=== PATIENT | male | born 1950 | race Caucasian/White ===

== ENCOUNTER 2021-05-08 14:20 | Outpatient (CLI) | payer OTHER, SELFPAY ==
--- NOTE | ~2021-05-08 | XR_ITS ---
XR chest 2V DATE: 05/08/2021 15:16 INDICATION: Shortness of breath for 10 days. History of COPD, asthma, hypertension. Former smoker. TECHNIQUE: PA and lateral views COMPARISON: None FINDINGS: Normal heart size. Left-sided pacemaker device with leads overlying right atrium and right ventricle. Aortic arch calcification. There is pulmonary hyperinflation. There is volume loss of the left lung compared to the right. There is patchy infiltrate infiltrate and/or atelectasis in the left lower lung. No pleural effusion or pulmonary vascular congestion or pneumothorax. Diffuse osteopenia. Degenerative spurring of the thoracic spine. IMPRESSION: Patchy infiltrate or atelectasis in the left lower lung Hyperinflation, right greater than left Reviewed, dictated and finalized at location A.
[2021-05-08 15:44] LABS: NT Pro B Type Natriuretic Pept 649 pg/mL (5-100)
[2021-05-12 00:26] LABS: Immunoglobulin E 247 kU/L (<=114)
[2021-05-12 22:09] LABS: Alpha-1-Antitrypsin, QN 158 mg/dL (83-199)
[2021-05-12 22:48] LABS: Immunoglobulin G, Serum 1090 mg/dL (600-1540); Immunoglobulin G1 534 mg/dL (382-929); Immunoglobulin G2 221 mg/dL (241-700); Immunoglobulin G3 90 mg/dL (22-178)
== END 2021-05-08 14:21 | disposition home or self-care (01) ==
LOC: ANHLAB 14:23
PROVIDERS: PCP Internal Medicine; Referring Provider Family Medicine; Visit Provider Nurse Practitioner
DX: R06.09 Other forms of dyspnea (principal); R06.02 Shortness of breath; R91.8 Other nonspecific abnormal finding of lung field
CPT/HCPCS: 36415; 71046; 82103; 82104; 82784; 82785; 82787; 83880; 85004; 85048; 86003

== ENCOUNTER 2021-05-11 11:35 | Outpatient (CLI) | payer OTHER, SELFPAY ==
[2021-05-14 11:15] LABS: NIL 0.01 IU/mL; Quantiferon TB Plus, 1T NEGATIVE (NEGATIVE); TB2-NIL 0.01 IU/mL
== END 2021-05-11 11:36 | disposition home or self-care (01) ==
LOC: ANHLAB 11:38
PROVIDERS: PCP Internal Medicine; Visit Provider Nurse Practitioner
DX: R79.89 Other specified abnormal findings of blood chemistry (principal)
CPT/HCPCS: 36415; 86480

== ENCOUNTER 2021-05-27 14:49 | Outpatient (CLI) | payer OTHER, SELFPAY ==
--- NOTE | ~2021-05-27 | US_ITS ---
EXAMINATION: US carotid duplex BI DATE: 05/27/2021 16:15 INDICATION: Bilateral carotid artery stenosis. TECHNIQUE: Grayscale, color Doppler, and pulsed Doppler images of the cervical carotid arteries were obtained. The degree of vessel stenosis is placed in one of the following categories: normal, <50%, 5 0-69%, >=70% but less than near-occlusion, near-occlusion, or total occlusion. Note that percent sten osis relative to normal distal artery lumen diameter is indirectly measured from velocity measurement s as described by Marciano, et al. Radiology 2003; [id number]. COMPARISON: None. FINDINGS: RIGHT: The right common carotid artery (CCA) peak systolic velocity (PSV) is 99 cm/s. The right internal car otid artery (ICA) PSV is 93 cm/s. The right ICA end-diastolic velocity (EDV) is 26 cm/s. The right IC A/CCA PSV ratio is 0.9. Grayscale and color Doppler images yield an estimate of <50% diameter reducti on from plaque in the ICA. There is antegrade flow in the right vertebral artery. LEFT: The left CCA PSV is 78 cm/s. The left ICA PSV is 118 cm/s. The left ICA EDV is 28 cm/s. The left ICA/ CCA PSV ratio is 1.5. Grayscale and color Doppler images yield an estimate of <50% diameter reduction from plaque in the ICA. There is antegrade flow in the left vertebral artery. IMPRESSION: 1. <50% stenosis in the right internal carotid artery. 2. <50% stenosis in the left internal carotid artery. Reviewed, dictated and finalized at location A.
--- NOTE | ~2021-05-27 | US_ITS ---
EXAMINATION: US art doppler w press LE BI DATE: 05/27/2021 16:13 INDICATION: Claudication TECHNIQUE: Segmental pressures and plethysmographic and Doppler waveforms of the brachial and lower e xtremity arteries were obtained. COMPARISON: None. FINDINGS: Right and left brachial artery pressures of 150 mm Hg and 171 mm Hg, respectively, are concordant (no rmal difference <= 30 mmHg). The right ankle-brachial index (SULEMA) is 0.66 (normal >= 0.9-1). The right great toe-brachial index (T BI) is 0.35 (normal >= 0.6-0.8). Arterial waveforms are biphasic with brisk systolic upstrokes throug hout. Cardiac arrhythmias present. The left SULEMA is 0.81. The left TBI is 0.64. Arterial waveforms are biphasic with brisk systolic upst rokes throughout. IMPRESSION: 1. Bilateral arterial occlusive disease with mildly decreased left SULEMA and moderately decreased right SULEMA and TBI. Reviewed, dictated and finalized at location B. IMPRESSION: 1. Bilateral arterial occlusive disease with mildly decreased left SULEMA and mode rately decreased right SULEMA and TBI.
== END 2021-05-27 14:50 | disposition home or self-care (01) ==
PROVIDERS: PCP Internal Medicine; Visit Provider Internal Medicine Cardiovascular Disease
DX: I65.23 Occlusion and stenosis of bilateral carotid arteries (principal); I73.9 Peripheral vascular disease, unspecified
CPT/HCPCS: 93880; 93923

== ENCOUNTER 2021-06-02 13:01 | Inpatient (IN) | payer OTHER, MEDICARE, SELFPAY ==
[2021-06-02] VITALS (18 sets, daily range): BP systolic 90–171; BP diastolic 62–83; PULSE 78–98; RESP 18–34; TEMP 35.6–36.5; O2SAT 92–97; BMI 30.8
--- NOTE | ~2021-06-02 | US_ITS ---
EXAMINATION: US thoracentesis DATE: 06/08/2021 15:12 INDICATION: pleural effusion TECHNIQUE: The procedure and its risks, benefits, and alternatives were discussed with the patient. P otential risks discussed included bleeding, infection, and pneumothorax. The patient understood the r isks and agreed to proceed. The skin was prepped and draped in sterile fashion. 1% lidocaine was used for local anesthesia. Under ultrasound guidance, a 5 Fr catheter with trochar was advanced into the left pleural effusion. Fluid was aspirated. The catheter was removed, and a dressing was applied. The re were no immediate complications. FINDINGS: Ultrasound images demonstrate a left pleural effusion and the catheter within the fluid. IMPRESSION: 1. Successful ultrasound-guided thoracentesis yielding 2 mL of opaque, cream-colored fluid suggestin g empyema. Reviewed, dictated and finalized at location A. IMPRESSION: 1. Successful ultrasound-guided thoracentesis yielding 2 mL of opaque, cream-c olored fluid suggesting empyema.
--- NOTE | ~2021-06-02 | XR_ITS ---
XR chest 1V portable 06/07/2021 05:49 Indication: Left pneumonia and pleural effusion Procedure: AP portable chest Comparison: 06/05/2021 Findings: Pacemaker leads are stable. Moderate left pleural effusion. Left-sided airspace disease, reyes spicious for pneumonia. Impression: 1: Persistent patchy left-sided airspace disease, compatible with pneumonia. 2: Moderate left pleural effusion. Reviewed, dictated and finalized at location A. Impression: 1: Persistent patchy left-sided airspace disease, compatible with pneumonia. 2: Moderate left pleural effusion.
--- NOTE | ~2021-06-02 | XR_ITS ---
EXAMINATION: XR chest 2V DATE: 06/05/2021 13:55 INDICATION: Shortness of breath, left lung pneumonia and pleural effusion. TECHNIQUE: PA and lateral views of the chest were obtained. COMPARISON: Chest radiograph dated 06/02/[address] dated 06/04/2021 FINDINGS: Masslike opacities in the left mid to lower lung zone along with blunting at the left costophrenic an gle which on CT corresponds to a small multiloculated left pleural effusion with suggestion of some n odular pleural thickening raising concern for malignancy. Tiny right pleural effusion with blunting o f the posterior sulcus. Right lung is otherwise clear. No pneumothorax or right pleural effusion. Hea rt size is normal. Dual lead pacemaker seen with leads projecting over the expected locations of the right atrium and right ventricle. IMPRESSION: 1. Unchanged opacities in the left mid and lower lung zones consistent with small right pleural effus ion, associated atelectasis and some suspicion on prior CT for pleural-based malignancy. 2. Tiny right pleural effusion. Reviewed, dictated and finalized at location A. IMPRESSION: 1. Unchanged opacities in the left mid and lower lung zones consistent with sma ll right pleural effusion, associated atelectasis and some suspicion on prior C T for pleural-based malignancy. 2. Tiny right pleural effusion.
--- NOTE | ~2021-06-02 | XR_ITS ---
EXAMINATION: XR chest 1V portable EXAM DATE: 06/02/2021 13:54 INDICATION: Shortness of breath. TECHNIQUE: Portable AP frontal chest x-ray was obtained. Comparison is made to prior examination from 05/08/2020. FINDINGS: Development of multifocal left mid and lower lung zone airspace disease. The midlung zone n odular opacity rather well-defined, but still most likely acute given not present last. There is smal l to moderate left pleural effusion with adjacent atelectasis. Right lung is clear. Mild cardiomegaly . There is a dual lead pacemaker/AICD seen with leads projecting over the expected locations of the r ight atrial appendage and right ventricle. There is no pneumothorax suspected. There are no osseous a bnormalities identified. IMPRESSION: 1. Moderate amount of left-sided airspace disease suspicious for combination of atelectasis and pneu monia. 2. Small to moderate left pleural effusion. 3. Follow-up to resolution. Reviewed, dictated and finalized at location A. IMPRESSION: 1. Moderate amount of left-sided airspace disease suspicious for combination o f atelectasis and pneumonia. 2. Small to moderate left pleural effusion. 3. Follow-up to resolution.
--- NOTE | ~2021-06-02 | NM_ITS ---
EXAMINATION: NM pulmonary perfusion DATE: 06/05/2021 14:00 INDICATION: Shortness of breath. Left lung pneumonia and pleural effusion. TECHNIQUE: 5.3 mCi Tc-99m MAA by intravenous route. Scintigraphic images of the chest were obtained. COMPARISON: Chest radiograph dated 06/05/[address] dated 06/04/2021 FINDINGS: Large perfusion defect extending across the left lower lung zone and moderate-sized perfusion defect at the posterior left midlung zone corresponding to radiographic opacities on the prior radiograph wh ich on CT correspond to loculated components of a small to moderate-sized left pleural effusion and a ssociated atelectasis. A couple small matched perfusion defects along the right lung base. No unmatch ed perfusion defects identified. IMPRESSION: 1. Immediate probability for pulmonary embolism. Reviewed, dictated and finalized at location A.
--- NOTE | ~2021-06-02 | US_ITS ---
EXAMINATION: US venous doppler LE EXAM DATE: 06/04/2021 10:38 INDICATION: R/O DVT R/O DVT TECHNIQUE: Multiple grayscale, color flow and Doppler images of the lower extremity deep venous syste ms bilaterally were obtained and reviewed. There is no prior study for comparison. FINDINGS: Right side: The right common femoral, femoral and profunda veins demonstrate normal color flow, respi ratory variation, augmentation and compressibility. Compressibility, color flow confirmed within the right popliteal, posterior tibial, peroneal, and greater saphenous veins. Left side: The left common femoral, femoral and profunda veins demonstrate normal color flow, respira tory variation, augmentation and compressibility. Compressibility, color flow confirmed within the l eft popliteal, posterior tibial, peroneal, and greater saphenous veins. IMPRESSION: No lower extremity deep venous thrombosis bilaterally. Reviewed, dictated and finalized at location A.
--- NOTE | ~2021-06-02 | CT_ITS ---
EXAMINATION: CT diagnostic chest wo con EXAM DATE: 06/04/2021 10:02 INDICATION: Left lung pneumonia and effusion. TECHNIQUE: Spiral CT of the chest without contrast. Axial, coronal and sagittal images of the chest were reviewed. Coronal maximum intensity pixel images of chest reviewed. The dose-length product ( DLP) for this examination was 322.62 mGy-cm. The exposure was tailored according to patient size (au to mA exposure control), and iterative reconstruction (ASIR) was used as additional dose reduction te chnique. There is no prior study for comparison. FINDINGS: There is multi loculated small to moderate-sized left pleural effusion with possibility of regions of pleural thickening which raises possibility of malignant pleural effusion or less likely e mpyema. There is left lower lobe perihilar opacity which is difficult to measure, but with regions of segmental bronchial narrowing, occlusion. Could be lung cancer or less likely pneumonia and atelecta sis. There is moderate emphysema. Mild mediastinal lymphadenopathy with a precarinal lymph node measuring 2.0 x 1.7 cm. There is no pneumothorax. Heart is normal in size. Pacemaker/AICD device. There is moderate coronary arterial calcification, arterial sclerosis. Bilateral adrenal nodularity, could b e adenomas but metastatic disease not excludable. There is small sliding gastroesophageal hiatal slim ia. There is thoracic spondylosis without osteoblastic or osteolytic lesions identified. IMPRESSION: 1. 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 Infectious etiology for these findings not excludable. A CT chest with intravenous contrast migh t be beneficial for better evaluating pleural surface nodularity. 2. Mild mediastinal lymphadenopathy, metastatic versus reactive. 3. Indeterminate adrenal gland lesions. 4. Moderate emphysema. Reviewed, dictated and finalized at location A. IMPRESSION: 1. Findings most consistent with left lower lobe cancer, multiloculated malign ant left pleural effusion. Infectious etiology for these findings not excludabl e. A CT chest with intravenous contrast might be beneficial for better evaluati ng pleural surface nodularity. 2. Mild mediastinal lymphadenopathy, metastatic versus reactive. 3. Indeterminate adrenal gland lesions. 4. Moderate emphysema.
--- NOTE | ~2021-06-02 | XR_ITS ---
EXAMINATION: [id number]_CR DATE: 06/08/2021 15:06 INDICATION: Left pleural effusion status post thoracentesis. TECHNIQUE: Frontal and lateral views of the chest were obtained. COMPARISON: Chest CT 06/08/2021, chest single view 06/07/2021 FINDINGS: There are lucencies in the lungs, consistent with emphysema. There is a small right pleural effusion. There is elevation of left hemidiaphragm. There is a moderate-sized loculated left pleural effusion. There are airspace opacities in left mid and lower lung zones. No pneumothorax. The heart size is normal. There is a left chest wall pacer with leads in the right atrium and right ventricle. There are surgical clips in the neck IMPRESSION: 1. Moderate-sized loculated left pleural effusion, likely an empyema. 2. Small right pleural effusion. 3. Airspace opacities in left mid and lower lung zones, consistent with pneumonia and atelectasis. 4. Emphysema. Reviewed, dictated and finalized at location A. IMPRESSION: 1. Moderate-sized loculated left pleural effusion, likely an empyema. 2. Small right pleural effusion. 3. Airspace opacities in left mid and lower lung zones, consistent with pneumon ia and atelectasis. 4. Emphysema.
--- NOTE | ~2021-06-02 | CT_ITS ---
EXAMINATION:CT diagnostic chest wo con DATE: 06/08/2021 09:21 INDICATION: Left lung lower lobe pneumonia. Left pleural effusion. TECHNIQUE: Computed tomography (CT) of the chest was performed without intravenous contrast. Automate d exposure control and iterative reconstruction technique were employed. The dose-length product (DLP ) was 324.00 mGy-cm. COMPARISON: Chest CT 06/04/2021 FINDINGS: There is severe emphysema. There is a small right pleural effusion with mild dependent atel ectasis. There is a moderate-sized loculated left pleural effusion. There is fat stranding in the adj acent anterior mediastinum. There are peripheral airspace opacities in lingula and left lower lobe. A calcified left lung nodule is consistent with old granulomatous disease. The heart size is normal. T here are coronary artery calcifications. No pericardial effusion. 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 There is mild me diastinal and left hilar lymphadenopathy. There is a small sliding hiatal hernia. There is a 7 mm cys t in the liver. There are masses in the adrenal glands measuring up to 1.7 cm on the left measuring l ow-attenuation, consistent with adenomas. There is a left chest pacer with leads in region and right ventricle. There is severe lower thoracic spondylosis. IMPRESSION: 1. Stable moderate-sized loculated left pleural effusion. Worsened small right pleural effusion. 2. Peripheral airspace opacities in left lower lobe and lingula, likely pneumonia and atelectasis. 3. Severe emphysema. 4. Mild mediastinal and left hilar lymphadenopathy, likely reactive. Reviewed, dictated and finalized at location A. IMPRESSION: 1. Stable moderate-sized loculated left pleural effusion. Worsened small right pleural effusion. 2. Peripheral airspace opacities in left lower lobe and lingula, likely pneumon ia and atelectasis. 3. Severe emphysema. 4. Mild mediastinal and left hilar lymphadenopathy, likely reactive.
--- NOTE | ~2021-06-02 | US_ITS ---
EXAMINATION: US venous doppler UE DATE: 06/04/2021 10:39 INDICATION: Shortness of breath. Pleural effusion. Attention and COPD. TECHNIQUE: Grayscale images without and with compression and Doppler images of the bilateral upper ex tremity veins were obtained. COMPARISON: None. FINDINGS: The right internal jugular vein, subclavian vein, axillary vein, brachial vein, basilic vein, cephali c vein, radial vein, and ulnar vein are patent. The left internal jugular vein, subclavian vein, axillary vein, brachial vein, basilic vein, cephalic vein, radial vein, and ulnar vein are patent. Instantly noted linear echogenic and shadowing intrave nous catheter within the left cephalic vein. IMPRESSION: 1. Patent bilateral upper extremity veins. No evidence of venous thrombosis. Reviewed, dictated and finalized at location A.
--- NOTE | 2021-06-02 13:22 | ECG_ITS ---
Measurements Intervals [place] Rate: 86 P: 51 CA: 200 QRS: 49 QRSD: 101 T: 34 QT: 318 QTc: 381 Interpretive Statements ELECTRONIC ATRIAL PACEMAKER ELECTRONIC VENTRICULAR PACEMAKER BASELINE ARTIFACT- I, II, III, AVR, AVL, AVF, V3-V6 NO FURTHER INTERPRETATION IS POSSIBLE ATYPICAL ECG Electronically Signed On 06-02-2021 13:49:19 CDT by Juan David George D.O.
[2021-06-02 13:48] LABS: Hematocrit 37.1 % (42.0-52.0); Mean Corpuscular HGB Conc 32.3 g/dl (32-36); Mean Corpuscular Hemoglobin 29.8 pg (26-34); Mean Corpuscular Volume 92.1 fl (80-100); Mean Platelet Volume 8.8 fl (7.4-10.4); Platelet Count Result 492 k/mm3 (150-375); Red Blood Count 4.03 M/mm3 (4.6-6.20); Red Cell Distribution Width 13.3 % (11.5-14.5); White Blood Count 42.4 K/mm3 (4.5-10.0)
[2021-06-02 13:58] LABS: INR 1.3; Prothrombin Time 16.4 Seconds (11.1-14.7)
[2021-06-02 13:59] LABS: Partial Thromboplastin Time 38.8 SECONDS (22.3-36.8)
[2021-06-02] MEDS: ALBUTEROL SULFATE NEB 2.5 MG/3 ML INH 5 MG INHALATION (14:06)
[2021-06-02 14:09] LABS: Anion Gap 11 mmol/L (8-16); Blood Urea Nitrogen 50 mg/dL (9-20); Calcium 9.2 mg/dL (8.4-10.2); Carbon Dioxide 26 mmol/L (22-30); Chloride 99 mmol/L (98-107); Estimated CRCL calculation 29 ml/min; Estimated Glomerular Filt Rate 27; Glucose 110 mg/dL (65-110); Potassium 4.8 mmol/L (3.4-5.0); Sodium 136 mmol/L (137-145)
--- NOTE | 2021-06-02 14:22 | ED.SOB ---
HPI - SOB/Dyspnea General Chief Complaint: Shortness of Breath/Dyspnea Stated Complaint: sob Time Seen by Provider: 06/02/21 13:34 Source: patient Mode of arrival: ambulatory Limitations: no limitations History of Present Illness HPI Narrative: 70-year-old male with past medical history of COPD on chronic prednisone, hypertension and GERD coming in with 1 month history of increasing shortness of breath worse over the past week. Patient was given prednisone 40mg at home taper now to 30 mg daily and is at home on 3 L. However no improvement with prednisone or azithromycin. Duo nebs without relief. MD elicited complaint: shortness of breath, cough and pain with inspiration Pertinent past history: COPD Onset (ago): month(s) (1) Timing: constant and progressively worsening Severity: severe Exacerbating factors: exertion and coughing Related Data Home Medications Medication Instructions Recorded Confirmed albuterol sulfate 2.5 mg INHALATION Q4-6H PRN 03/03/21 05/28/21 albuterol sulfate 90 mcg/actuation 1 puff INHALATION Q4H PRN 03/03/21 05/28/21 aerosol inhaler amlodipine 10 mg tablet 10 mg PO DAILY 03/03/21 05/28/21 apixaban 2.5 mg tablet 2.5 mg PO BID 03/03/21 05/28/21 atorvastatin 40 mg tablet 40 mg PO QHS 03/03/21 05/28/21 carvedilol 25 mg tablet 25 mg PO Q8H tablet 03/03/21 05/28/21 cetirizine 10 mg tablet 10 mg PO DAILY PRN 03/03/21 05/28/21 clonidine HCl 0.1 mg tablet 0.1 mg PO BID tablet 03/03/21 05/28/21 clopidogrel 75 mg tablet 75 mg PO DAILY 03/03/21 05/28/21 fluticasone 500 mcg-salmeterol 50 1 inh INHALATION Q12H 03/03/21 05/28/21 mcg/dose blistr powdr for inhalation gabapentin 300 mg capsule 300 mg PO BID 03/03/21 05/28/21 hydrochlorothiazide 12.5 mg tablet 12.5 mg PO DAILY 03/03/21 05/28/21 lisinopril 20 mg tablet 20 mg PO DAILY 03/03/21 05/28/21 omeprazole 20 mg capsule,delayed 20 mg PO DAILY 03/03/21 05/28/21 release tiotropium bromide 2.5 2 puff INHALATION DAILY 03/03/21 05/28/21 mcg/actuation mist for inhalation tramadol 50 mg tablet 50 mg PO Q6H PRN 03/03/21 05/28/21 triamcinolone acetonide 0.05 % 1 applic TOPICAL DAILY 03/03/21 05/28/21 topical ointment prednisone 40 mg PO DAILY 06/02/21 Allergies Allergy/AdvReac Type Severity Reaction Status Date / Time No Known Allergies Allergy Verified 06/02/21 13:23 [facility] Past Medical History Medical History (Updated 06/02/21 @ 16:52 by Ramona Hare NP) Allergies Anemia Arthritis Chronic renal failure, stage 3 (moderate) COPD (chronic obstructive pulmonary disease) Eczema Lower extremities GERD (gastroesophageal reflux disease) H/O cardiac pacemaker Hypertension Obstructive sleep apnea Uses oxygen at night but not a CPAP Surgical History Surgical History (Updated 06/02/21 @ 16:57 by Ramona Hare NP) AICD (automatic cardioverter/defibrillator) present History of herniorrhaphy History of hip replacement Bilaterally with revision S/P carotid endarterectomy S/P peripheral artery angioplasty with stent placement Left leg S/P tonsillectomy and adenoidectomy Family History Family History Father Hypertension Heart disease Cerebrovascular accident Mother Asthma Diabetes mellitus Hypertension Sibling Hypertension Social History Social History (Updated 06/02/21 @ 16:45 by Ramona Hare NP) Social History: The patient currently lives with his sister. She is a durable power immigration attorney for healthcare. The patient is currently going through a divorce with his . He has 3 children. 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 He is a former smoker. No alcohol marijuana or illicit drugs. Code status full code Years smoked: 40 Smoking status: Former smoker Smoking end date: 08/22/09 Alcohol intake: never Substance use: never Gender identity (if verbalized by the patient): Male Sexual Orientation (if Verbalized by the Patient): Straight or Heterose
[2021-06-02 14:43] LABS: Band Neutrophils Percent 4 % (0-6); Lymphocytes Absolute Manual 1.27 K/mm3 (1.1-4.5); Monocytes Absolute Manual 2.54 K/mm3 (0.1-0.90); Monocytes Percent Manual 6 % (3-9); Neutrophils Absolute Manual 38.58 K/mm3 (1.3-6.7); Neutrophils Percent Manual 87 % (46-73); Platelet Estimate Adequate (Adequate); Total Cells Counted 100
[2021-06-02 15:31] LABS: Alveolar/Arterial O2 Gradient 109.5 mmHg; Base Excess ABG -4.1 mEq/l (+/-2.0); Device NASAL CANNULA; Fractional Inspired Oxygen 32 %; HCO3 ABG 20.9 mEq/l (22.0-26.0); Modified Allen's Test Pass; Oxygen Content ABG 16.4 %vol (16.0-22.0); Oxygen Saturation ABG 94.4 % (95.0-100.0); Oxyhemoglobin 93.1 % THb (90.0-100.0); PCO2 ABG 38.2 mmHg (35.0-45.0); PO2 FiO2 Ratio Arterial Blood 2.31 %; Site Drawn RIGHT RADIAL; Total Hemoglobin 12.5 g/dL (12.0-18.0); pH ABG 7.356 (7.350-7.450)
[2021-06-02] MEDS: HYDROcodone/acetaminophen (*CRX) 5-325 MG TABLET 1 TAB PO (15:50)
--- NOTE | 2021-06-02 16:33 | PM.IMHP ---
H&P: HPI History of Present Illness Date/Time: 06/02/21 16:33 this is a 70-year-old male patient who has a history of COPD and obstructive sleep apnea. The patient states that he does have oxygen at home and he uses it as needed and uses at night mostly 3 L per nasal cannula at night. The patient has been increasingly more short of breath. The patient was started on a prednisone taper per his dining room supervisor with they 40 mg once a day for week and then 30 mg daily decreasing the prednisone by 10 mg each week. Patient is currently on 30 mg daily. The patient stated that he has not had any relief with prednisone and the azithromycin. The patient also uses DuoNebs at home. The patient has been short of breath with exertion and is shortness of breath has been getting worse. The patient cannot recall the name of his dining room supervisor. The patient was given nebulizer treatment azithromycin Rocephin and Vicodin in the emergency room. Chest x-ray was read as moderate amount of left-sided airspace disease suspicious for combination of atelectasis and pneumonia. Small to moderate left pleural effusion. Follow-up to resolution. Patient's white count was noted to be 42.4. His H&H is 12.0 in 37.1. Patient's creatinine is 2.4 which in February it was 1.9. GFR is 27 today and February of this year was 40. The patient is being admitted to inpatient services on the date of service of 06/02/2021. Chief Complaint: Shortness of breath Review of Systems Review of Systems: All systems reviewed & are unremarkable except as noted in HPI and below Constitutional: Constitutional: Reports as per HPI and Reports no additional constitutional complaints Eyes: Eyes: Reports as per HPI and Reports no additional eye complaints ENT: Reports system reviewed and no additional complaints, except as documented and Reports Normal hearing present Cardiovascular: Cardiovascular: Reports no additional cardiovascular complaints Respiratory: Respiratory: Reports no additional respiratory complaints and Reports no additional respiratory complaints Gastrointestinal: Gastrointestinal: Reports as per HPI and Reports no additional gastrointestinal complaints Musculoskeletal: Musculoskeletal: Reports no additional musculoskeletal complaints Integumentary/Breasts: Skin/Breast: Reports system reviewed and no additional complaints, except as docu and Reports as per HPI Neurologic: Reports system reviewed and no additional complaints, except as documented, Reports as per HPI and Reports Normal hearing present Psychiatric: Psychiatric: Reports no additional psychiatric complaints and Reports as per HPI Endocrine: Endocrine: Reports no additional endocrine complaints Hematologic/Lymphatic: Hematologic/Lymphatic: Reports no additional hematologic/lymphatic complaints Allergic/Immunologic: Allergic/Immunologic: Reports no additional allergic/immunologic complaints [facility] Past Medical History Medical History (Updated 06/02/21 @ 16:52 by Ramona Hare NP) Allergies Anemia Arthritis Chronic renal failure, stage 3 (moderate) COPD (chronic obstructive pulmonary disease) Eczema Lower extremities GERD (gastroesophageal reflux disease) H/O cardiac pacemaker Hypertension Obstructive sleep apnea Uses oxygen at night but not a CPAP Surgical History Surgical History (Updated 06/02/21 @ 16:57 by Ramona Hare NP) AICD (automatic cardioverter/defibrillator) present History of herniorrhaphy History of hip replacement Bilaterally with revision S/P carotid endarterectomy S/P peripheral artery angioplasty with stent placement Left leg S/P tonsillectomy and adenoidectomy Family History Family History Father Hypertension Heart disease Cerebrovascular accident Mother Asthma Diabetes mellitus Hypertension Sibling Hypertension Social History Social History (Updated 06/02/21 @ 16:45 by Ramona Hare NP) Social His
[2021-06-02] MEDS: methylPREDNISolone SOD SUCC 125 MG VIAL 60 MG IV PUSH ×2 (17:29→22:44)
--- NOTE | 2021-06-02 18:07 | PC.NURSE ---
patient's dinner ordered at this time.
--- NOTE | 2021-06-02 20:57 | ADMGEN ---
This patient, Freddy Hill, was admitted to IMU Room 231-01 on 06/02/2021 at 2015. Patient/family oriented to hospital policies and general routines including ID bracelet, bed and alarms, visiting hours, pain management, procedures, bathroom and other care routines, personal items, smoking policy, room service/diet, and visiting hours. Information on how to activate the Rapid Response Team has been discussed. Patient/Family are encouraged to report perceived risks to care and to ask questions if they do not understand what they are told or what they should do.
[2021-06-02] MEDS: ALBUTEROL SULFATE NEB 2.5 MG/0.5 ML INH INHALATION (21:41)
[2021-06-02] MEDS: IPRATROPIUM BR 0.02% INH SOLN 0.5 MG/2.5 ML VIAL 1 MG INHALATION (21:41)
[2021-06-02] MEDS: ATORVASTATIN 40 MG TABLET PO (22:11)
[2021-06-02] MEDS: traMADol HCL (*CRX) 50 MG TABLET PO (22:11)
[2021-06-02] MEDS: carvediloL 25 MG TABLET 50 MG PO (22:11)
[2021-06-02] MEDS: DOXEPIN HCL 25 MG CAPSULE PO (22:11)
[2021-06-02] MEDS: APIXABAN 2.5 MG TABLET PO (22:12)
[2021-06-02] MEDS: ACETAMINOPHEN 500 MG TABLET PO (22:43)
[2021-06-03] VITALS (14 sets, daily range): BP systolic 136–155; BP diastolic 72–116; PULSE 76–102; RESP 18–24; TEMP 36.2–37.2; O2SAT 93–99
[2021-06-03] MEDS: ALBUTEROL SULFATE NEB 2.5 MG/0.5 ML INH INHALATION (04:04)
[2021-06-03] MEDS: methylPREDNISolone SOD SUCC 125 MG VIAL 60 MG IV PUSH (05:12)
[2021-06-03] MEDS: traMADol HCL (*CRX) 50 MG TABLET PO ×3 (05:12→20:23)
[2021-06-03] MEDS: ACETAMINOPHEN 500 MG TABLET PO ×2 (05:12→12:45)
[2021-06-03 05:15] LABS: Basophils Absolute Auto 0.1 K/mm3 (0.0-0.1); Basophils Percent Auto 0.2 % (0.2-1.2); Hematocrit 35.5 % (42.0-52.0); Hemoglobin 11.4 g/dL (14.0-18.0); Immature Granulocyte Absolute 0.89 K/mm3 (0.00-0.031); Immature Granulocyte Percent A 2.3 % (0-0.5); Lymphocytes Absolute Auto 0.35 K/mm3 (0.9-3.2); Lymphocytes Percent Auto 0.9 % (18.3-44.2); Mean Corpuscular HGB Conc 32.1 g/dl (32-36); Mean Corpuscular Hemoglobin 29.6 pg (26-34); Mean Corpuscular Volume 92.2 fl (80-100); Mean Platelet Volume 8.4 fl (7.4-10.4); Monocytes Absolute Auto 0.7 K/mm3 (0.1-0.6); Monocytes Percent Auto 1.8 % (2.6-8.5); Neutrophils Absolute Auto 36.1 K/mm3 (1.3-6.7); Neutrophils Percent Auto 94.8 % (45.5-73.1); Platelet Count Result 421 k/mm3 (150-375); Red Blood Count 3.85 M/mm3 (4.6-6.20); Red Cell Distribution Width 13.2 % (11.5-14.5); White Blood Count 38.1 K/mm3 (4.5-10.0)
[2021-06-03] MEDS: IPRATROPIUM BR 0.02% INH SOLN 0.5 MG/2.5 ML VIAL INHALATION (05:23)
[2021-06-03 05:27] LABS: Lactic Acid Reflex 1.1 mmol/L (0.7-2.1)
[2021-06-03 05:29] LABS: Alanine Aminotransferase 14 U/L (4-50); Albumin Level 3.5 g/dL (3.5-5.1); Alkaline Phosphatase 89 U/L (38-126); Anion Gap 10 mmol/L (8-16); Aspartate Amino Transferase 27 U/L (17-59); Bilirubin,Total 0.4 mg/dL (0.2-1.3); Blood Urea Nitrogen 61 mg/dL (9-20); Calcium 8.8 mg/dL (8.4-10.2); Carbon Dioxide 27 mmol/L (22-30); Chloride 98 mmol/L (98-107); Estimated CRCL calculation 29 ml/min; Estimated Glomerular Filt Rate 27; Glucose 127 mg/dL (65-110); Lactate Dehydrogenase 363 U/L (313-618); Potassium 5.2 mmol/L (3.4-5.0); Sodium 135 mmol/L (137-145)
--- NOTE | 2021-06-03 08:15 | PM.IMPN ---
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 Patient appears to be on Coreg. (4) CKD (chronic kidney disease): Qualifiers: Chronic kidney disease stage: stage 3 (moderate) Code(s): N18.9 - Chronic kidney disease, unspecified Status: Acute (5) Obstructive sleep apnea: Code(s): G47.33 - Obstructive sleep apnea (adult) (pediatric) Status: Chronic Assessment and Plan: Continue with oxygen. (6) Chronic renal failure, stage 3 (moderate): Code(s): N18.30 - Chronic kidney disease, stage 3 unspecified Status: Chronic (7) GERD (gastroesophageal reflux disease): Code(s): K21.9 - Gastro-esophageal reflux disease without esophagitis Status: Acute Assessment and Plan: Continue with home medications. (8) Peripheral vascular angioplasty status: Code(s): Z98.62 - Peripheral vascular angioplasty status Status: Acute Assessment and Plan: The patient has a stent the left leg. Continue with home medications. (9) Anemia: Qualifiers: Anemia type: other cause Other causes of anemia: chronic disease, other Qualified Code(s): D63.8 - Anemia in other chronic diseases classified elsewhere Code(s): D64.9 - Anemia, unspecified Status: Acute Assessment and Plan: Patient appears to be at the baseline. (10) Eczema: Code(s): L30.9 - Dermatitis, unspecified Status: Chronic Assessment and Plan: Continue with clobetasol. The patient stated that he takes injections but he is had placed him on hold as it causes immunosuppressive affect. Additional Plan CAP: LLL consolidation seen on CXR 06/02, not seen on CXR two weeks ago. Presenting with SOB. Continue CTX and AZX while cultures pending. Leukocytosis to 38, 42 yesterday. Follow Sputum & Blood cultures & COVIT test. CT when COVID confirmed neg, per pulm. COPD: Baseline intermittent 3L throughout day and all night, over last few days needing round the clock. Meets criteria for decompensation, and noted was started on therapy for such yesterday. Continue steroids and breathing treatments and wean as tolerated. Pulmonology on consult, appreciate recommendations. PAD: S/p Lt leg stent. Continue Plavix & Eliquis. S/p Dual Chamber Pacemaker: Hyperkalemia: mild, 5.2 in am, will trend tomorrow. ALFREDO on CKD: Baseline Cr around 1.9, currently 2.4 over last few days. Time Spent With Patient Time with patient: less than 15 minutes Subjective Date/time seen: 06/03/21 08:15 improving sob and cp says these symptoms very similar to prior presentations. Review of Systems Review of Systems: All systems reviewed & are unremarkable except as noted in HPI and below Exam Const: General: no acute distress Neck: Neck: no JVD Resp: Auscultation: clear to auscultation bilaterally Cardio: Rate: regular rate Rhythm: regular rhythm GI: GI Palp: Yes Soft to palpation and No Tenderness to palpation present (GI) Objective Data Vital Signs Vital Signs: Vital Signs - 24 hr 06/02/21 13:05 06/02/21 13:29 06/02/21 13:41 Temperature 96.1 F L Pulse Rate 88 86 88 Respiratory Rate 28 H 34 H Blood Pressure 130/66 113/83 Pulse Oximetry 95 95 06/02/21 14:09 06/02/21 14:19 06/02/21 15:40 Temperature Pulse
[2021-06-03] MEDS: SODIUM CHLORIDE 0.9% IV 1,000 ML 100 ML IV CONT (09:04)
[2021-06-03] MEDS: TAMSULOSIN HCL 0.4 MG CAPSULE PO (09:05)
[2021-06-03] MEDS: GABAPENTIN 300 MG CAPSULE PO ×2 (09:05→20:26)
[2021-06-03] MEDS: amLODIPine BESYLATE 5 MG TABLET 10 MG PO (09:05)
[2021-06-03] MEDS: CLOPIDOGREL BISULFATE 75 MG TABLET PO (09:06)
[2021-06-03] MEDS: PANTOPRAZOLE 40 MG TABLET PO (09:06)
[2021-06-03] MEDS: TRIAMCINOLONE ACET 0.5% OINT 15 GM TUBE 1 APPLIC TOPICAL (09:07)
[2021-06-03] MEDS: APIXABAN 2.5 MG TABLET PO ×2 (09:08→20:27)
--- NOTE | 2021-06-03 10:10 | PM.CNPUL ---
Assessment and Plan Assessment and plan (1) Obstructive sleep apnea: Code(s): G47.33 - Obstructive sleep apnea (adult) (pediatric) Status: Chronic Assessment and Plan: Regarding his obstructive sleep apnea patient tells me he was tested 10 years ago and was told he had obstructive sleep apnea but could not tolerate his CPAP mask. At that time he was placed on supplemental oxygen and wears 2 L at night and he was told by his doctors in [place] that his oxygen levels were okay. Continue 2 L nasal cannula at night. (2) COPD (chronic obstructive pulmonary disease): Qualifiers: COPD type: emphysema Emphysema type: panlobular Qualified Code(s): J43.1 - Panlobular emphysema Code(s): J44.9 - Chronic obstructive pulmonary disease, unspecified Status: Acute Assessment and Plan: Patient carries a history of COPD and asthma and his previous workup was done and you talk. I have no PFTs or CT scans. Patient had a blood gas on admission on 3 L nasal cannula the pH of 7.36/38/74 with an admission serum bicarb of 26. There is no evidence chronic hypercarbic respiratory failure. Patient does have chronic hypoxemic respiratory failure and requires no L with rest and 2-3 L with activity and 2 L at night. He is maintained on Advair 500-50 at 1 puff b.i.d., Spiriva 2.5 mcg at 2 puffs q.day, rescue albuterol inhaler and nebulizer and Zyrtec 10 mg p.o. q.day. patient is also on apixaban 2.5 mg p.o. q.day for his peripheral arterial disease. I suspect patient has a community-acquired pneumonia but will also treat him for COPD exacerbation has he has change in his phlegm and dyspnea on exertion. Patient is currently on Solu-Medrol and I will change the dose to 40 mg IV q.6 hours, will change him to inhaled Combivent 2 puffs q.i.d. at this time. He has no wheezing today. (3) CAP (community acquired pneumonia): Code(s): J18.9 - Pneumonia, unspecified organism Status: Acute Assessment and Plan: Currently patient has left-sided pleuritic chest pain, chills, sweats, shakes, phlegm production, leukocytosis and a focal infiltrate and left pleural effusion consistent with community-acquired pneumonia. Patient states he is clinically improved With less cough, less shortness of breath, less left-sided pleuritic chest pain and improved white blood cell count after 1 day of ceftriaxone and azithromycin and I will continue these currently. COVID test is pending, blood cultures and sputum culture are pending. once COVID test is negative I will consider CT of the chest to fully evaluate left lower lobe and pleural effusion. On Plavix 75 mg p.o. q.day and I will hold tonight in case he should need a thoracentesis in the future as this medicine requires a 5 day hold prior to the procedure. continue Eliquis 2.5 mg p.o. q.12 hours for now at this does as this medicine only requires a 1-day- will follow with you History of Present Illness History of Present Illness Consult date: 06/03/21 Requesting physician: Elyse Ortega MD Reason for consult: COPD and pneumonia Chief complaint: Pneumonia, COPD, Hypoxemia Narrative: 06/03/2021: This is a new Pulmonary consult for COPD with pneumonia. 70-year-old male with a history of hypertension, av block status post permanent pacemaker, GERD, peripheral arterial disease status post right carotid endarterectomy and 3 stents in his left leg, COVID pneumonia on 2019, chronic kidney disease with a creatinine of 1.91 on 03/10/2021, COPD and asthma diagnosed 10 years ago with hypoxemic respiratory failure requiring oxygen for 5 years At no oxygen at rest, 2-3 L oxygen with ambulation and obstructive sleep apnea diagnosed 10 years ago unable to tolerate CPAP and wears oxygen 2 L at night. Patient's issue started on 05/05/2021 at an outpatient visit for shortness of breath for approximately 10 days. Patient was treated with azithromycin and prednisone and even
[2021-06-03] MEDS: ALBUTEROL SULFATE (*SP) INHALER 1 PUFF (11:12)
[2021-06-03] MEDS: methylPREDNISolone SOD SUCC 40 MG VIAL IV PUSH ×2 (12:40→17:57)
[2021-06-03] MEDS: cloNIDine HCL 0.1 MG TABLET PO ×2 (12:40→20:26)
[2021-06-03 13:43] LABS: CRP 43.6 mg/dL (<1.0)
[2021-06-03 19:23] LABS: SARS-CoV-2 RNA PCR Negative
[2021-06-03] MEDS: carvediloL 25 MG TABLET 50 MG PO (20:26)
[2021-06-03] MEDS: ATORVASTATIN 40 MG TABLET PO (20:27)
[2021-06-03] MEDS: DOXEPIN HCL 25 MG CAPSULE PO (20:27)
[2021-06-04] VITALS (24 sets, daily range): BP systolic 102–159; BP diastolic 68–78; PULSE 71–91; RESP 18–24; TEMP 36.1–36.9; O2SAT 93–98
[2021-06-04] MEDS: methylPREDNISolone SOD SUCC 40 MG VIAL IV PUSH ×3 (00:20→13:03)
[2021-06-04] MEDS: IPRATROPIUM BR 0.02% INH SOLN 0.5 MG/2.5 ML VIAL INHALATION ×4 (02:34→20:13)
[2021-06-04] MEDS: ALBUTEROL SULFATE NEB 2.5 MG/0.5 ML INH INHALATION ×4 (02:34→20:13)
[2021-06-04 05:11] LABS: Basophils Absolute Auto 0.1 K/mm3 (0.0-0.1); Basophils Percent Auto 0.2 % (0.2-1.2); Hemoglobin 10.7 g/dL (14.0-18.0); Immature Granulocyte Absolute 1.47 K/mm3 (0.00-0.031); Immature Granulocyte Percent A 3.9 % (0-0.5); Lymphocytes Absolute Auto 0.27 K/mm3 (0.9-3.2); Lymphocytes Percent Auto 0.7 % (18.3-44.2); Mean Corpuscular HGB Conc 32.4 g/dl (32-36); Mean Corpuscular Hemoglobin 30.1 pg (26-34); Mean Corpuscular Volume 92.7 fl (80-100); Mean Platelet Volume 8.6 fl (7.4-10.4); Monocytes Absolute Auto 0.8 K/mm3 (0.1-0.6); Monocytes Percent Auto 2.1 % (2.6-8.5); Neutrophils Absolute Auto 34.6 K/mm3 (1.3-6.7); Neutrophils Percent Auto 93.1 % (45.5-73.1); Platelet Count Result 386 k/mm3 (150-375); Red Blood Count 3.56 M/mm3 (4.6-6.20); Red Cell Distribution Width 13.5 % (11.5-14.5); White Blood Count 37.2 K/mm3 (4.5-10.0)
[2021-06-04 05:25] LABS: Alanine Aminotransferase 17 U/L (4-50); Albumin Level 3.1 g/dL (3.5-5.1); Alkaline Phosphatase 92 U/L (38-126); Anion Gap 5 mmol/L (8-16); Aspartate Amino Transferase 33 U/L (17-59); Bilirubin,Total 0.3 mg/dL (0.2-1.3); Blood Urea Nitrogen 56 mg/dL (9-20); Calcium 8.3 mg/dL (8.4-10.2); Carbon Dioxide 28 mmol/L (22-30); Chloride 99 mmol/L (98-107); Estimated CRCL calculation 35 ml/min; Estimated Glomerular Filt Rate 33; Glucose 140 mg/dL (65-110); Phosphorus 4.3 mg/dL (2.5-4.5); Potassium 4.6 mmol/L (3.4-5.0); Sodium 132 mmol/L (137-145)
[2021-06-04 05:41] LABS: Platelet Estimate Adequate (Adequate)
[2021-06-04 05:42] LABS: Atypical Lymphocytes Present; Crenated RBC 1+ (NORMAL)
--- NOTE | 2021-06-04 07:52 | PM.IMPN ---
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 Patient appears to be on Coreg. (4) CKD (chronic kidney disease): Qualifiers: Chronic kidney disease stage: stage 3 (moderate) Code(s): N18.9 - Chronic kidney disease, unspecified Status: Acute (5) Obstructive sleep apnea: Code(s): G47.33 - Obstructive sleep apnea (adult) (pediatric) Status: Chronic Assessment and Plan: Continue with oxygen. (6) Chronic renal failure, stage 3 (moderate): Code(s): N18.30 - Chronic kidney disease, stage 3 unspecified Status: Chronic (7) GERD (gastroesophageal reflux disease): Code(s): K21.9 - Gastro-esophageal reflux disease without esophagitis Status: Acute Assessment and Plan: Continue with home medications. (8) Peripheral vascular angioplasty status: Code(s): Z98.62 - Peripheral vascular angioplasty status Status: Acute Assessment and Plan: The patient has a stent the left leg. Continue with home medications. (9) Anemia: Qualifiers: Anemia type: other cause Other causes of anemia: chronic disease, other Qualified Code(s): D63.8 - Anemia in other chronic diseases classified elsewhere Code(s): D64.9 - Anemia, unspecified Status: Acute Assessment and Plan: Patient appears to be at the baseline. (10) Eczema: Code(s): L30.9 - Dermatitis, unspecified Status: Chronic Assessment and Plan: Continue with clobetasol. The patient stated that he takes injections but he is had placed him on hold as it causes immunosuppressive affect. Additional Plan CAP: LLL consolidation seen on CXR 06/02, not seen on CXR two weeks ago. Presenting with SOB. Continue CTX and AZX while cultures pending. Leukocytosis to 37 from 42 on admission. Follow Sputum & Blood cultures. Covid negative. CT planned. ordered MRSA nares to see if we should expand abx coverage. Radiological Evidence of LLL cancer: Of note, infectious etiology not excludable. Pulm on board, holding plavix, may benefit from thoracentesis for cytology? COPD: Baseline intermittent 3L throughout day and all night, over last few days needing round the clock. Meets criteria for decompensation, and noted was started on therapy for such yesterday. Continue steroids, noted pulm changed to po, and breathing treatments and wean as tolerated. No DVT found in UE or LE on US. DDimer 3.87, however other compelling explanation for this - at this point WELLS score is 0. PAD: S/p Lt leg stent. Hold Plavix per pulm in case he needs procedure & Eliquis. S/p Dual Chamber Pacemaker CKD3 Time Spent With Patient Time with patient: less than 15 minutes Subjective Date/time seen: 06/04/21 07:52 breathing improving still coughing, but chest pain improving Review of Systems Review of Systems: All systems reviewed & are unremarkable except as noted in HPI and below Exam Const: General: no acute distress Neck: Neck: no JVD Resp: Effort & Inspection: normal respiratory effort Auscultation: clear to auscultation bilaterally Cardio: Rate: regular rate Rhythm: regular rhythm GI: GI Palp: Yes Soft to palpation and No Tenderness to palpation present (GI) Objective Data Vital Signs Vital Signs: Vital Signs - 24 hr
[2021-06-04] MEDS: ACETAMINOPHEN 500 MG TABLET PO ×3 (08:39→20:59)
[2021-06-04] MEDS: cloNIDine HCL 0.1 MG TABLET PO ×2 (08:41→18:28)
[2021-06-04] MEDS: traMADol HCL (*CRX) 50 MG TABLET PO ×3 (08:41→20:59)
[2021-06-04] MEDS: APIXABAN 2.5 MG TABLET PO ×2 (08:43→21:00)
[2021-06-04] MEDS: TRIAMCINOLONE ACET 0.5% OINT 15 GM TUBE 1 APPLIC TOPICAL (08:43)
[2021-06-04] MEDS: amLODIPine BESYLATE 5 MG TABLET 10 MG PO (08:44)
[2021-06-04] MEDS: PANTOPRAZOLE 40 MG TABLET PO (08:45)
[2021-06-04] MEDS: TAMSULOSIN HCL 0.4 MG CAPSULE PO (08:45)
--- NOTE | 2021-06-04 09:08 | PM.PNPUL ---
Progress Note: A&P Assessment and Plan (1) Obstructive sleep apnea: Code(s): G47.33 - Obstructive sleep apnea (adult) (pediatric) Status: Chronic Assessment and Plan: 06/03 Regarding his obstructive sleep apnea patient tells me he was tested 10 years ago and was told he had obstructive sleep apnea but could not tolerate his CPAP mask. At that time he was placed on supplemental oxygen and wears 2 L at night and he was told by his doctors in [place] that his oxygen levels were okay. Continue 2 L nasal cannula at night. 06/04 continue 3 L at night. (2) COPD (chronic obstructive pulmonary disease): Qualifiers: COPD type: emphysema Emphysema type: panlobular Qualified Code(s): J43.1 - Panlobular emphysema Code(s): J44.9 - Chronic obstructive pulmonary disease, unspecified Status: Acute Assessment and Plan: Patient carries a history of COPD and asthma and his previous workup was done and you talk. I have no PFTs or CT scans. Patient had a blood gas on admission on 3 L nasal cannula the pH of 7.36/38/74 with an admission serum bicarb of 26. There is no evidence chronic hypercarbic respiratory failure. Patient does have chronic hypoxemic respiratory failure and requires no L with rest and 2-3 L with activity and 2 L at night. He is maintained on Advair 500-50 at 1 puff b.i.d., Spiriva 2.5 mcg at 2 puffs q.day, rescue albuterol inhaler and nebulizer and Zyrtec 10 mg p.o. q.day. patient is also on apixaban 2.5 mg p.o. q.day for his peripheral arterial disease. I suspect patient has a community-acquired pneumonia but will also treat him for COPD exacerbation has he has change in his phlegm and dyspnea on exertion. Patient is currently on Solu-Medrol and I will change the dose to 40 mg IV q.6 hours, will change him to inhaled Combivent 2 puffs q.i.d. at this time. He has no wheezing today. 06/04 No wheezes on exam. continue his albuterol 2.5 mg nebs q.6, ipratropium 0.5 mg nebs q.6 and I will change his Solu-Medrol 40 IV q.6 to prednisone 40 p.o. today (3) CAP (community acquired pneumonia): Code(s): J18.9 - Pneumonia, unspecified organism Status: Acute Assessment and Plan: Currently patient has left-sided pleuritic chest pain, chills, sweats, shakes, phlegm production, leukocytosis and a focal infiltrate and left pleural effusion consistent with community-acquired pneumonia. Patient states he is clinically improved With less cough, less shortness of breath, less left-sided pleuritic chest pain and improved white blood cell count after 1 day of ceftriaxone and azithromycin and I will continue these currently. COVID test is pending, blood cultures and sputum culture are pending. once COVID test is negative I will consider CT of the chest to fully evaluate left lower lobe and pleural effusion. On Plavix 75 mg p.o. q.day and I will hold tonight in case he should need a thoracentesis in the future as this medicine requires a 5 day hold prior to the procedure. continue Eliquis 2.5 mg p.o. q.12 hours for now at this does as this medicine only requires a 1-day hold. 06/04 patient clinically improving but remains with left-sided pleuritic chest pain and a leukocytosis of 37.2. I will obtain a CT scan of the chest to assess left lung infiltrate and pleural effusion. Will obtain a D-dimer and Dopplers to exclude DVT. Cultures are negative. COVID test is negative. Continue azithromycin and ceftriaxone for now. will follow with you Subjective Date/time seen: 06/04/21 09:08 Interval history: 06/03/2021: This is a new Pulmonary consult for COPD with pneumonia. 70-year-old male with a history of hypertension, av block status post permanent pacemaker, GERD, peripheral arterial disease status post right carotid endarterectomy and 3 stents in his left leg, COVID pneumonia on 2019, chronic kidney disease with a creatinine of 1.91 on 03/10/2021, COPD and asthma diagnosed
[2021-06-04] MEDS: carvediloL 25 MG TABLET PO (10:39)
[2021-06-04 11:14] LABS: D Dimer 3.87 ug/mL (<0.48)
[2021-06-04] MEDS: levoFLOXacin 750 MG TABLET PO (18:28)
[2021-06-04] MEDS: carvediloL 25 MG TABLET 50 MG PO (20:59)
[2021-06-04] MEDS: DOXEPIN HCL 25 MG CAPSULE PO (21:00)
[2021-06-04] MEDS: ATORVASTATIN 40 MG TABLET PO (21:00)
[2021-06-04] MEDS: GABAPENTIN 300 MG CAPSULE PO (21:00)
[2021-06-05] VITALS (23 sets, daily range): BP systolic 144–153; BP diastolic 70–92; PULSE 69–98; RESP 15–24; TEMP 36–36.4; O2SAT 91–98
[2021-06-05] MEDS: IPRATROPIUM BR 0.02% INH SOLN 0.5 MG/2.5 ML VIAL INHALATION ×4 (02:45→21:18)
[2021-06-05] MEDS: ALBUTEROL SULFATE NEB 2.5 MG/0.5 ML INH INHALATION ×4 (02:45→21:18)
[2021-06-05] MEDS: ACETAMINOPHEN 500 MG TABLET PO ×2 (04:00→10:28)
[2021-06-05] MEDS: traMADol HCL (*CRX) 50 MG TABLET PO ×2 (04:35→10:28)
[2021-06-05 06:34] LABS: Hematocrit 32.8 % (42.0-52.0); Hemoglobin 10.7 g/dL (14.0-18.0); Mean Corpuscular HGB Conc 32.6 g/dl (32-36); Mean Corpuscular Volume 91.9 fl (80-100); Mean Platelet Volume 8.5 fl (7.4-10.4); Platelet Count Result 349 k/mm3 (150-375); Red Blood Count 3.57 M/mm3 (4.6-6.20); Red Cell Distribution Width 13.4 % (11.5-14.5)
[2021-06-05 06:45] LABS: Alanine Aminotransferase 19 U/L (4-50); Albumin Level 2.9 g/dL (3.5-5.1); Alkaline Phosphatase 104 U/L (38-126); Anion Gap 7 mmol/L (8-16); Aspartate Amino Transferase 44 U/L (17-59); Bilirubin,Total < 0.1 mg/dL (0.2-1.3); Blood Urea Nitrogen 52 mg/dL (9-20); Calcium 8.5 mg/dL (8.4-10.2); Carbon Dioxide 27 mmol/L (22-30); Chloride 97 mmol/L (98-107); Estimated CRCL calculation 43 ml/min; Estimated Glomerular Filt Rate 43; Glucose 146 mg/dL (65-110); Magnesium 2.2 mg/dL (1.6-2.3); Phosphorus 2.9 mg/dL (2.5-4.5); Potassium 4.8 mmol/L (3.4-5.0); Sodium 131 mmol/L (137-145)
--- NOTE | 2021-06-05 08:43 | PM.PNPUL ---
Progress Note: A&P Assessment and Plan (1) Obstructive sleep apnea: Code(s): G47.33 - Obstructive sleep apnea (adult) (pediatric) Status: Chronic Assessment and Plan: 06/03 Regarding his obstructive sleep apnea patient tells me he was tested 10 years ago and was told he had obstructive sleep apnea but could not tolerate his CPAP mask. At that time he was placed on supplemental oxygen and wears 2 L at night and he was told by his doctors in [place] that his oxygen levels were okay. Continue 2 L nasal cannula at night. 06/04 continue 3 L at night. 06/05 On 2 L last night with spot saturations 96% (2) COPD (chronic obstructive pulmonary disease): Qualifiers: COPD type: emphysema Emphysema type: panlobular Qualified Code(s): J43.1 - Panlobular emphysema Code(s): J44.9 - Chronic obstructive pulmonary disease, unspecified Status: Acute Assessment and Plan: Patient carries a history of COPD and asthma and his previous workup was done and you talk. I have no PFTs or CT scans. Patient had a blood gas on admission on 3 L nasal cannula the pH of 7.36/38/74 with an admission serum bicarb of 26. There is no evidence chronic hypercarbic respiratory failure. Patient does have chronic hypoxemic respiratory failure and requires no L with rest and 2-3 L with activity and 2 L at night. He is maintained on Advair 500-50 at 1 puff b.i.d., Spiriva 2.5 mcg at 2 puffs q.day, rescue albuterol inhaler and nebulizer and Zyrtec 10 mg p.o. q.day. patient is also on apixaban 2.5 mg p.o. q.day for his peripheral arterial disease. I suspect patient has a community-acquired pneumonia but will also treat him for COPD exacerbation has he has change in his phlegm and dyspnea on exertion. Patient is currently on Solu-Medrol and I will change the dose to 40 mg IV q.6 hours, will change him to inhaled Combivent 2 puffs q.i.d. at this time. He has no wheezing today. 06/04 No wheezes on exam. continue his albuterol 2.5 mg nebs q.6, ipratropium 0.5 mg nebs q.6 and I will change his Solu-Medrol 40 IV q.6 to prednisone 40 p.o. today 06/05 No wheezes on exam. Given the possibility of a Pseudomonas infection with an empyema, I will discontinue systemic steroids at this time and start budesonide 0.5 mg neb Q 12 hours and monitor his respiratory status. Currently is on 2 L nasal cannula saturations 95%. (3) CAP (community acquired pneumonia): Code(s): J18.9 - Pneumonia, unspecified organism Status: Acute Assessment and Plan: Currently patient has left-sided pleuritic chest pain, chills, sweats, shakes, phlegm production, leukocytosis and a focal infiltrate and left pleural effusion consistent with community-acquired pneumonia. Patient states he is clinically improved With less cough, less shortness of breath, less left-sided pleuritic chest pain and improved white blood cell count after 1 day of ceftriaxone and azithromycin and I will continue these currently. COVID test is pending, blood cultures and sputum culture are pending. once COVID test is negative I will consider CT of the chest to fully evaluate left lower lobe and pleural effusion. On Plavix 75 mg p.o. q.day and I will hold tonight in case he should need a thoracentesis in the future as this medicine requires a 5 day hold prior to the procedure. continue Eliquis 2.5 mg p.o. q.12 hours for now at this does as this medicine only requires a 1-day hold. 06/04 patient clinically improving but remains with left-sided pleuritic chest pain and a leukocytosis of 37.2. I will obtain a CT scan of the chest to assess left lung infiltrate and pleural effusion. Will obtain a D-dimer and Dopplers to exclude DVT. Cultures are negative. COVID test is negative. Continue azithromycin and ceftriaxone for now (06/02-06/04). Spoke with Radiology and CT with complex loculated left pleural effusion concerning for complicated parapneumonic effusion and/or empye
[2021-06-05 09:53] LABS: Monocytes Absolute Manual 1.02 K/mm3 (0.1-0.90); Monocytes Percent Manual 3 % (3-9); Neutrophils Percent Manual 97 % (46-73); Platelet Estimate Adequate (Adequate); Total Cells Counted 100
[2021-06-05 09:54] LABS: Acanthocytes 1+ (NORMAL); Ovalocytes 2+ (NORMAL); Tear Drop Cells 1+ (NORMAL)
[2021-06-05] MEDS: polyethylene glycoL 3350 17 GM POWD.PACK PO (10:06)
[2021-06-05] MEDS: cloNIDine HCL 0.1 MG TABLET PO ×2 (10:06→16:17)
[2021-06-05] MEDS: GABAPENTIN 300 MG CAPSULE PO ×2 (10:06→21:25)
[2021-06-05] MEDS: PANTOPRAZOLE 40 MG TABLET PO (10:06)
[2021-06-05] MEDS: APIXABAN 2.5 MG TABLET PO ×2 (10:07→21:25)
[2021-06-05] MEDS: amLODIPine BESYLATE 5 MG TABLET 10 MG PO (10:07)
[2021-06-05] MEDS: TAMSULOSIN HCL 0.4 MG CAPSULE PO (10:08)
[2021-06-05] MEDS: carvediloL 25 MG TABLET PO (10:08)
[2021-06-05] MEDS: TRIAMCINOLONE ACET 0.5% OINT 15 GM TUBE 1 APPLIC TOPICAL (10:09)
--- NOTE | 2021-06-05 10:41 | PM.IMPN ---
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 Patient appears to be on Coreg. (4) CKD (chronic kidney disease): Qualifiers: Chronic kidney disease stage: stage 3 (moderate) Code(s): N18.9 - Chronic kidney disease, unspecified Status: Acute (5) Obstructive sleep apnea: Code(s): G47.33 - Obstructive sleep apnea (adult) (pediatric) Status: Chronic Assessment and Plan: Continue with oxygen. (6) Chronic renal failure, stage 3 (moderate): Code(s): N18.30 - Chronic kidney disease, stage 3 unspecified Status: Chronic (7) GERD (gastroesophageal reflux disease): Code(s): K21.9 - Gastro-esophageal reflux disease without esophagitis Status: Acute Assessment and Plan: Continue with home medications. (8) Peripheral vascular angioplasty status: Code(s): Z98.62 - Peripheral vascular angioplasty status Status: Acute Assessment and Plan: The patient has a stent the left leg. Continue with home medications. (9) Anemia: Qualifiers: Anemia type: other cause Other causes of anemia: chronic disease, other Qualified Code(s): D63.8 - Anemia in other chronic diseases classified elsewhere Code(s): D64.9 - Anemia, unspecified Status: Acute Assessment and Plan: Patient appears to be at the baseline. (10) Eczema: Code(s): L30.9 - Dermatitis, unspecified Status: Chronic Assessment and Plan: Continue with clobetasol. The patient stated that he takes injections but he is had placed him on hold as it causes immunosuppressive affect. Additional Plan CAP: Expanded abx to LEvaquin vanz and cefepime. MRSA nares pending. Pseudomonas in sputum. Blood cultures pending, no fgrowth so far. Concern for empyma on imaging, would ideally be transferred. Discussed with him yesterday option for chest tube, he was reluctant, will discuss today again. Radiological Evidence of LLL cancer: will repeat imaging following resolution of infection. If not resolving, may need cytology. COPD: Baseline intermittent 3L throughout day and all night, over last few days needing round the clock. Meets criteria for decompensation, and noted was started on therapy for such yesterday. Continue steroids, noted pulm changed to po, and breathing treatments and wean as tolerated. No DVT found in UE or LE on US. DDimer 3.87, however other compelling explanation for this - at this point WELLS score is 0. PAD: S/p Lt leg stent. Hold Plavix per pulm in case he needs procedure & Eliquis. S/p Dual Chamber Pacemaker CKD3 Time Spent With Patient Time with patient: less than 15 minutes Subjective Date/time seen: 06/05/21 10:41 2L nc breathing improving chest pain improving Review of Systems Review of Systems: All systems reviewed & are unremarkable except as noted in HPI and below Exam Const: General: no acute distress Neck: Neck: no JVD Resp: Effort & Inspection: normal respiratory effort Auscultation: clear to auscultation bilaterally Cardio: Rate: regular rate Rhythm: regular rhythm GI: GI Palp: Yes Soft to palpation and No Tenderness to palpation present (GI) Objective Data Vital Signs Vital Signs: Vital Signs - 24 hr 06/04/21 12:00 06/04/21 13:19 06/04/21 14:00 Temper
[2021-06-05] MEDS: BUDESONIDE RESPULE NEB 0.5 MG/2 ML AMP (14:43)
[2021-06-05] MEDS: BUDESONIDE RESPULE NEB 0.5 MG/2 ML AMP INHALATION ×2 (14:43→21:18)
[2021-06-05] MEDS: carvediloL 25 MG TABLET 50 MG PO (21:25)
[2021-06-05] MEDS: DOXEPIN HCL 25 MG CAPSULE PO (21:25)
[2021-06-05] MEDS: ATORVASTATIN 40 MG TABLET PO (21:25)
[2021-06-06] VITALS (21 sets, daily range): BP systolic 129–159; BP diastolic 71–82; PULSE 72–95; RESP 16–26; TEMP 36.1–37.1; O2SAT 90–99
[2021-06-06] MEDS: ALBUTEROL SULFATE NEB 2.5 MG/0.5 ML INH INHALATION ×3 (02:18→17:30)
[2021-06-06] MEDS: IPRATROPIUM BR 0.02% INH SOLN 0.5 MG/2.5 ML VIAL INHALATION ×3 (02:18→17:30)
[2021-06-06 05:23] LABS: Hematocrit 33.2 % (42.0-52.0); Hemoglobin 10.7 g/dL (14.0-18.0); Mean Corpuscular HGB Conc 32.2 g/dl (32-36); Mean Corpuscular Hemoglobin 29.7 pg (26-34); Mean Corpuscular Volume 92.2 fl (80-100); Mean Platelet Volume 9.5 fl (7.4-10.4); Platelet Count Result 315 k/mm3 (150-375); Red Cell Distribution Width 13.5 % (11.5-14.5); White Blood Count 32.8 K/mm3 (4.5-10.0)
[2021-06-06 05:39] LABS: Alanine Aminotransferase 23 U/L (4-50); Alkaline Phosphatase 109 U/L (38-126); Anion Gap 7 mmol/L (8-16); Aspartate Amino Transferase 30 U/L (17-59); Bilirubin,Total 0.1 mg/dL (0.2-1.3); Blood Urea Nitrogen 50 mg/dL (9-20); Calcium 8.8 mg/dL (8.4-10.2); Carbon Dioxide 29 mmol/L (22-30); Chloride 98 mmol/L (98-107); Estimated CRCL calculation 39 ml/min; Estimated Glomerular Filt Rate 38; Glucose 127 mg/dL (65-110); Magnesium 2.3 mg/dL (1.6-2.3); Potassium 4.9 mmol/L (3.4-5.0); Sodium 134 mmol/L (137-145)
[2021-06-06 06:26] LABS: Band Neutrophils Percent 1 % (0-6); Lymphocytes Absolute Manual 1.31 K/mm3 (1.1-4.5); Monocytes Absolute Manual 2.62 K/mm3 (0.1-0.90); Monocytes Percent Manual 8 % (3-9); Neutrophils Absolute Manual 28.86 K/mm3 (1.3-6.7); Neutrophils Percent Manual 87 % (46-73); Platelet Estimate Adequate (Adequate); Total Cells Counted 100
[2021-06-06 06:27] LABS: Ovalocytes 1+ (NORMAL); Poikilocytosis 2+ (NORMAL)
[2021-06-06 06:28] LABS: Burr Cells 2+ (NORMAL)
--- NOTE | 2021-06-06 08:42 | PM.IMPN ---
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 Patient appears to be on Coreg. (4) CKD (chronic kidney disease): Qualifiers: Chronic kidney disease stage: stage 3 (moderate) Code(s): N18.9 - Chronic kidney disease, unspecified Status: Acute (5) Obstructive sleep apnea: Code(s): G47.33 - Obstructive sleep apnea (adult) (pediatric) Status: Chronic Assessment and Plan: Continue with oxygen. (6) Chronic renal failure, stage 3 (moderate): Code(s): N18.30 - Chronic kidney disease, stage 3 unspecified Status: Chronic (7) GERD (gastroesophageal reflux disease): Code(s): K21.9 - Gastro-esophageal reflux disease without esophagitis Status: Acute Assessment and Plan: Continue with home medications. (8) Peripheral vascular angioplasty status: Code(s): Z98.62 - Peripheral vascular angioplasty status Status: Acute Assessment and Plan: The patient has a stent the left leg. Continue with home medications. (9) Anemia: Qualifiers: Anemia type: other cause Other causes of anemia: chronic disease, other Qualified Code(s): D63.8 - Anemia in other chronic diseases classified elsewhere Code(s): D64.9 - Anemia, unspecified Status: Acute Assessment and Plan: Patient appears to be at the baseline. (10) Eczema: Code(s): L30.9 - Dermatitis, unspecified Status: Chronic Assessment and Plan: Continue with clobetasol. The patient stated that he takes injections but he is had placed him on hold as it causes immunosuppressive affect. Additional Plan CAP: Expanded abx to Levaquin vanc and cefepime. MRSA nares pending. Pseudomonas in sputum. Blood cultures pending, no growth so far. Concern for empyma on imaging, would ideally be transferred. Place patient on list at [facility] in case not improving my Tuesday or so. Noted pulmonology added budesonide Q12. Titrate O2 as tolerated Radiological Suspicion of LLL cancer: will repeat imaging following resolution of infection. If not resolving, may need cytology. COPD: Baseline intermittent 3L throughout day and all night, over last few days needing round the clock. Meets criteria for decompensation, and noted was started on therapy for such yesterday. Continue steroids, noted pulm changed to po, and breathing treatments and wean as tolerated. No DVT found in UE or LE on US. DDimer 3.87, V/Q scan pending. continue eliquis 2.5 BID. PAD: S/p Lt leg stent. Hold Plavix per pulm in case he needs procedure & Eliquis. S/p Dual Chamber Pacemaker CKD3 Patient is on waitlist for room at [facility]. Subjective Date/time seen: 06/06/21 08:42 improving breathing and chest pain, but still req supplemental O2 Review of Systems Review of Systems: All systems reviewed & are unremarkable except as noted in HPI and below Exam Const: General: no acute distress Resp: Auscultation: clear to auscultation bilaterally Cardio: Rate: regular rate Rhythm: regular rhythm Other: mildly labored breathing some pain on palpation of left chest GI: GI Palp: Yes Soft to palpation and No Tenderness to palpation present (GI) Objective Data Vital Signs Vital Signs: Vital Signs - 24 hr 06/05/21 10:00 06/05/21 10:08 06/05/21 12:00
[2021-06-06] MEDS: BUDESONIDE RESPULE NEB 0.5 MG/2 ML AMP INHALATION ×2 (08:50→21:36)
[2021-06-06] MEDS: ACETAMINOPHEN 500 MG TABLET PO ×3 (09:32→22:28)
[2021-06-06] MEDS: traMADol HCL (*CRX) 50 MG TABLET PO ×3 (09:33→22:27)
[2021-06-06] MEDS: PANTOPRAZOLE 40 MG TABLET PO (09:34)
[2021-06-06] MEDS: amLODIPine BESYLATE 5 MG TABLET 10 MG PO (09:34)
[2021-06-06] MEDS: APIXABAN 2.5 MG TABLET PO ×2 (09:34→20:51)
[2021-06-06] MEDS: TAMSULOSIN HCL 0.4 MG CAPSULE PO (09:34)
[2021-06-06] MEDS: cloNIDine HCL 0.1 MG TABLET PO ×2 (09:35→16:29)
[2021-06-06] MEDS: carvediloL 25 MG TABLET PO (09:35)
[2021-06-06] MEDS: polyethylene glycoL 3350 17 GM POWD.PACK PO (09:35)
[2021-06-06] MEDS: TRIAMCINOLONE ACET 0.5% OINT 15 GM TUBE 1 APPLIC TOPICAL (09:36)
--- NOTE | 2021-06-06 09:43 | PM.PNPUL ---
Progress Note: A&P Assessment and Plan (1) Obstructive sleep apnea: Code(s): G47.33 - Obstructive sleep apnea (adult) (pediatric) Status: Chronic Assessment and Plan: 06/03 Regarding his obstructive sleep apnea patient tells me he was tested 10 years ago and was told he had obstructive sleep apnea but could not tolerate his CPAP mask. At that time he was placed on supplemental oxygen and wears 2 L at night and he was told by his doctors in [place] that his oxygen levels were okay. Continue 2 L nasal cannula at night. 06/04 continue 3 L at night. 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 I have no PFTs or CT scans. Patient had a blood gas on admission on 3 L nasal cannula the pH of 7.36/38/74 with an admission serum bicarb of 26. There is no evidence chronic hypercarbic respiratory failure. Patient does have chronic hypoxemic respiratory failure and requires no L with rest and 2-3 L with activity and 2 L at night. He is maintained on Advair 500-50 at 1 puff b.i.d., Spiriva 2.5 mcg at 2 puffs q.day, rescue albuterol inhaler and nebulizer and Zyrtec 10 mg p.o. q.day. patient is also on apixaban 2.5 mg p.o. q.day for his peripheral arterial disease. I suspect patient has a community-acquired pneumonia but will also treat him for COPD exacerbation has he has change in his phlegm and dyspnea on exertion. Patient is currently on Solu-Medrol and I will change the dose to 40 mg IV q.6 hours, will change him to inhaled Combivent 2 puffs q.i.d. at this time. He has no wheezing today. 06/04 No wheezes on exam. continue his albuterol 2.5 mg nebs q.6, ipratropium 0.5 mg nebs q.6 and I will change his Solu-Medrol 40 IV q.6 to prednisone 40 p.o. today 06/05 No wheezes on exam. Given the possibility of a Pseudomonas infection with an empyema, I will discontinue systemic steroids at this time and start budesonide 0.5 mg neb Q 12 hours and monitor his respiratory status. Currently is on 2 L nasal cannula saturations 95%. 06/06 no wheezes on exam. States his breathing is slowly improving on albuterol 2.5 mg nebs q.6, ipratropium 0.5 mg nebs q.6 and budesonide 0.5 mg nebs q.12 hours. Will continue. (3) CAP (community acquired pneumonia): Code(s): J18.9 - Pneumonia, unspecified organism Status: Acute Assessment and Plan: Currently patient has left-sided pleuritic chest pain, chills, sweats, shakes, phlegm production, leukocytosis and a focal infiltrate and left pleural effusion consistent with community-acquired pneumonia. Patient states he is clinically improved With less cough, less shortness of breath, less left-sided pleuritic chest pain and improved white blood cell count after 1 day of ceftriaxone and azithromycin and I will continue these currently. COVID test is pending, blood cultures and sputum culture are pending. once COVID test is negative I will consider CT of the chest to fully evaluate left lower lobe and pleural effusion. On Plavix 75 mg p.o. q.day and I will hold tonight in case he should need a thoracentesis in the future as this medicine requires a 5 day hold prior to the procedure. continue Eliquis 2.5 mg p.o. q.12 hours for now at this does as this medicine only requires a 1-day hold. 06/04 patient clinically improving but remains with left-sided pleuritic chest pain and a leukocytosis of 37.2. I will obtain a CT scan of the chest to assess left lung infiltrate and pleural effusion. Will obtain a D-dimer and Dopplers to exclude DVT. Cultures are n
--- NOTE | 2021-06-06 17:30 | PCRCNOTE ---
Window of time for administration has passed. See next scheduled administration.
[2021-06-06] MEDS: levoFLOXacin 750 MG TABLET PO (18:54)
[2021-06-06] MEDS: carvediloL 25 MG TABLET 50 MG PO (20:51)
[2021-06-06] MEDS: ATORVASTATIN 40 MG TABLET PO (20:51)
[2021-06-06] MEDS: DOXEPIN HCL 25 MG CAPSULE PO (20:52)
[2021-06-06] MEDS: GABAPENTIN 300 MG CAPSULE PO (20:52)
[2021-06-07] VITALS (27 sets, daily range): BP systolic 125–151; BP diastolic 67–89; PULSE 74–97; RESP 17–22; TEMP 36.2–36.6; O2SAT 91–96
[2021-06-07] MEDS: ALBUTEROL SULFATE NEB 2.5 MG/0.5 ML INH INHALATION ×4 (01:58→20:56)
[2021-06-07] MEDS: IPRATROPIUM BR 0.02% INH SOLN 0.5 MG/2.5 ML VIAL INHALATION ×4 (01:58→20:57)
[2021-06-07] MEDS: ACETAMINOPHEN 500 MG TABLET PO ×3 (04:34→17:18)
[2021-06-07] MEDS: traMADol HCL (*CRX) 50 MG TABLET PO ×3 (04:35→17:19)
[2021-06-07] MEDS: BUDESONIDE RESPULE NEB 0.5 MG/2 ML AMP INHALATION ×2 (08:24→20:57)
--- NOTE | 2021-06-07 08:33 | PM.IMPN ---
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 Patient appears to be on Coreg. (4) CKD (chronic kidney disease): Qualifiers: Chronic kidney disease stage: stage 3 (moderate) Code(s): N18.9 - Chronic kidney disease, unspecified Status: Acute (5) Obstructive sleep apnea: Code(s): G47.33 - Obstructive sleep apnea (adult) (pediatric) Status: Chronic Assessment and Plan: Continue with oxygen. (6) Chronic renal failure, stage 3 (moderate): Code(s): N18.30 - Chronic kidney disease, stage 3 unspecified Status: Chronic (7) GERD (gastroesophageal reflux disease): Code(s): K21.9 - Gastro-esophageal reflux disease without esophagitis Status: Acute Assessment and Plan: Continue with home medications. (8) Peripheral vascular angioplasty status: Code(s): Z98.62 - Peripheral vascular angioplasty status Status: Acute Assessment and Plan: The patient has a stent the left leg. Continue with home medications. (9) Anemia: Qualifiers: Anemia type: other cause Other causes of anemia: chronic disease, other Qualified Code(s): D63.8 - Anemia in other chronic diseases classified elsewhere Code(s): D64.9 - Anemia, unspecified Status: Acute Assessment and Plan: Patient appears to be at the baseline. (10) Eczema: Code(s): L30.9 - Dermatitis, unspecified Status: Chronic Assessment and Plan: Continue with clobetasol. The patient stated that he takes injections but he is had placed him on hold as it causes immunosuppressive affect. Additional Plan CAP: Expanded abx to Levaquin vanc and cefepime. MRSA nares negative. Pseudomonas in sputum. Blood cultures pending, no growth so far. Concern for empyma on imaging, would ideally be transferred. Patient was accepted at [facility] 06/06, however wants to wait until Tuesday to see if symptoms can improve without chest tube. Titrate O2 as tolerated Radiological Suspicion of LLL cancer: will repeat imaging following resolution of infection. If not resolving, may need cytology. COPD: Baseline intermittent 3L throughout day and all night, over last few days needing round the clock. Meets criteria for decompensation, q6 breathing treatments. wean as tolerated. No DVT found in UE or LE on US. DDimer 3.87, V/Q scan with intermediate probability for PE, defer to pulm regarding anticoagulation- given low pretest probability for PE with intermediate probability on VQ scan and predicted upcoming chest tube placement PAD: S/p Lt leg stent. Hold Plavix per pulm in case he needs procedure & Eliquis. S/p Dual Chamber Pacemaker CKD3 Time Spent With Patient Time with patient: less than 15 minutes Subjective Date/time seen: 06/07/21 08:33 reports breathing and pain better - however still needing 2L NC around the clock Review of Systems Review of Systems: All systems reviewed & are unremarkable except as noted in HPI and below Exam Const: General: no acute distress Neck: Neck: no JVD Resp: Effort & Inspection: normal respiratory effort Auscultation: clear to auscultation bilaterally Cardio: Rate: regular rate Rhythm: regular rhythm GI: GI Palp: Yes Soft to palpation and No Tenderness to palpation present (GI) Objective D
[2021-06-07] MEDS: polyethylene glycoL 3350 17 GM POWD.PACK PO (08:54)
[2021-06-07] MEDS: PANTOPRAZOLE 40 MG TABLET PO (08:55)
[2021-06-07] MEDS: GABAPENTIN 300 MG CAPSULE PO ×2 (08:56→20:14)
[2021-06-07] MEDS: amLODIPine BESYLATE 5 MG TABLET 10 MG PO (08:56)
[2021-06-07] MEDS: cloNIDine HCL 0.1 MG TABLET PO ×2 (08:57→17:20)
[2021-06-07] MEDS: TRIAMCINOLONE ACET 0.5% OINT 15 GM TUBE 1 APPLIC TOPICAL (08:57)
[2021-06-07] MEDS: TAMSULOSIN HCL 0.4 MG CAPSULE PO (08:57)
[2021-06-07] MEDS: carvediloL 25 MG TABLET PO (08:57)
--- NOTE | 2021-06-07 09:46 | PM.PNPUL ---
Progress Note: A&P Assessment and Plan (1) Obstructive sleep apnea: Code(s): G47.33 - Obstructive sleep apnea (adult) (pediatric) Status: Chronic Assessment and Plan: 06/03 Regarding his obstructive sleep apnea patient tells me he was tested 10 years ago and was told he had obstructive sleep apnea but could not tolerate his CPAP mask. At that time he was placed on supplemental oxygen and wears 2 L at night and he was told by his doctors in [place] that his oxygen levels were okay. Continue 2 L nasal cannula at night. 06/04 continue 3 L at night. 06/05 On 2 L last night with spot saturations 96% 06/06 On 2 L overnight with saturations 95% 06/07 On 2 L with sats 94% (2) COPD (chronic obstructive pulmonary disease): Qualifiers: COPD type: emphysema Emphysema type: panlobular Qualified Code(s): J43.1 - Panlobular emphysema Code(s): J44.9 - Chronic obstructive pulmonary disease, unspecified Status: Acute Assessment and Plan: Patient carries a history of COPD and asthma and his previous workup was done and you talk. I have no PFTs or CT scans. Patient had a blood gas on admission on 3 L nasal cannula the pH of 7.36/38/74 with an admission serum bicarb of 26. There is no evidence chronic hypercarbic respiratory failure. Patient does have chronic hypoxemic respiratory failure and requires no L with rest and 2-3 L with activity and 2 L at night. He is maintained on Advair 500-50 at 1 puff b.i.d., Spiriva 2.5 mcg at 2 puffs q.day, rescue albuterol inhaler and nebulizer and Zyrtec 10 mg p.o. q.day. patient is also on apixaban 2.5 mg p.o. q.day for his peripheral arterial disease. I suspect patient has a community-acquired pneumonia but will also treat him for COPD exacerbation has he has change in his phlegm and dyspnea on exertion. Patient is currently on Solu-Medrol and I will change the dose to 40 mg IV q.6 hours, will change him to inhaled Combivent 2 puffs q.i.d. at this time. He has no wheezing today. 06/04 No wheezes on exam. continue his albuterol 2.5 mg nebs q.6, ipratropium 0.5 mg nebs q.6 and I will change his Solu-Medrol 40 IV q.6 to prednisone 40 p.o. today 06/05 No wheezes on exam. Given the possibility of a Pseudomonas infection with an empyema, I will discontinue systemic steroids at this time and start budesonide 0.5 mg neb Q 12 hours and monitor his respiratory status. Currently is on 2 L nasal cannula saturations 95%. 06/06 no wheezes on exam. States his breathing is slowly improving on albuterol 2.5 mg nebs q.6, ipratropium 0.5 mg nebs q.6 and budesonide 0.5 mg nebs q.12 hours. Will continue. 06/07 no wheezes on exam. Stable on albuterol 2.5 mg nebs q.6, ipratropium 0.5 mg nebs q.6 and budesonide 0.5 mg nebs q.12 hours. Will continue. (3) CAP (community acquired pneumonia): Code(s): J18.9 - Pneumonia, unspecified organism Status: Acute Assessment and Plan: Currently patient has left-sided pleuritic chest pain, chills, sweats, shakes, phlegm production, leukocytosis and a focal infiltrate and left pleural effusion consistent with community-acquired pneumonia. Patient states he is clinically improved With less cough, less shortness of breath, less left-sided pleuritic chest pain and improved white blood cell count after 1 day of ceftriaxone and azithromycin and I will continue these currently. COVID test is pending, blood cultures and sputum culture are pending. once COVID test is negative I will consider CT of the chest to fully evaluate left lower lobe and pleural effusion. On Plavix 75 mg p.o. q.day and I will hold tonight in case he should need a thoracentesis in the future as this medicine requires a 5 day hold prior to the procedure. continue Eliquis 2.5 mg p.o. q.12 hours for now at this does as this medicine only requires a 1-day hold. 06/04 patient clinically improving but remains with left-sided pleuritic chest pain and a geoff
[2021-06-07] MEDS: ATORVASTATIN 40 MG TABLET PO (20:14)
[2021-06-07] MEDS: DOXEPIN HCL 25 MG CAPSULE PO (20:14)
[2021-06-07] MEDS: carvediloL 25 MG TABLET 50 MG PO (20:15)
[2021-06-08] VITALS (26 sets, daily range): BP systolic 116–152; BP diastolic 55–83; PULSE 78–99; RESP 16–22; TEMP 36.3–36.9; O2SAT 91–98
[2021-06-08] MEDS: ACETAMINOPHEN 500 MG TABLET PO ×4 (00:10→20:13)
[2021-06-08] MEDS: traMADol HCL (*CRX) 50 MG TABLET PO ×4 (00:11→20:13)
[2021-06-08] MEDS: ALBUTEROL SULFATE NEB 2.5 MG/0.5 ML INH INHALATION ×4 (02:14→20:01)
[2021-06-08] MEDS: IPRATROPIUM BR 0.02% INH SOLN 0.5 MG/2.5 ML VIAL INHALATION ×4 (02:14→20:01)
[2021-06-08 04:53] LABS: Hematocrit 33.9 % (42.0-52.0); Hemoglobin 10.9 g/dL (14.0-18.0); Mean Corpuscular HGB Conc 32.2 g/dl (32-36); Mean Corpuscular Hemoglobin 29.2 pg (26-34); Mean Corpuscular Volume 90.9 fl (80-100); Mean Platelet Volume 8.9 fl (7.4-10.4); Platelet Count Result 252 k/mm3 (150-375); Red Blood Count 3.73 M/mm3 (4.6-6.20); Red Cell Distribution Width 13.8 % (11.5-14.5); White Blood Count 30.1 K/mm3 (4.5-10.0)
[2021-06-08 05:09] LABS: Sodium 131 mmol/L (137-145)
[2021-06-08 05:28] LABS: Alanine Aminotransferase 28 U/L (4-50); Albumin Level 2.9 g/dL (3.5-5.1); Alkaline Phosphatase 107 U/L (38-126); Anion Gap 3 mmol/L (8-16); Aspartate Amino Transferase 60 U/L (17-59); Bilirubin,Total 0.3 mg/dL (0.2-1.3); Blood Urea Nitrogen 48 mg/dL (9-20); Calcium 8.7 mg/dL (8.4-10.2); Carbon Dioxide 30 mmol/L (22-30); Chloride 98 mmol/L (98-107); Estimated CRCL calculation 44 ml/min; Estimated Glomerular Filt Rate 40; Glucose 119 mg/dL (65-110); Phosphorus 3.5 mg/dL (2.5-4.5); Potassium 5.4 mmol/L (3.4-5.0)
[2021-06-08 05:45] LABS: Band Neutrophils Percent 1 % (0-6); Metamyelocytes Percent 1 %; Monocytes Percent Manual 3 % (3-9); Neutrophils Absolute Manual 27.09 K/mm3 (1.3-6.7); Neutrophils Percent Manual 89 % (46-73); Total Cells Counted 100
[2021-06-08 05:46] LABS: Burr Cells 2+ (NORMAL); Hypochromasia 1+ (NORMAL); Ovalocytes 2+ (NORMAL); Platelet Estimate Adequate (Adequate); Schistocytes 1+ (NORMAL)
[2021-06-08] MEDS: BUDESONIDE RESPULE NEB 0.5 MG/2 ML AMP INHALATION ×2 (08:31→20:01)
[2021-06-08] MEDS: amLODIPine BESYLATE 5 MG TABLET 10 MG PO (08:54)
[2021-06-08] MEDS: cloNIDine HCL 0.1 MG TABLET PO ×2 (08:54→16:28)
[2021-06-08] MEDS: PANTOPRAZOLE 40 MG TABLET PO (08:55)
[2021-06-08] MEDS: carvediloL 25 MG TABLET PO (08:55)
[2021-06-08] MEDS: TRIAMCINOLONE ACET 0.5% OINT 15 GM TUBE 1 APPLIC TOPICAL (08:56)
--- NOTE | 2021-06-08 09:10 | PM.IMPN ---
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 Patient appears to be on Coreg. (4) CKD (chronic kidney disease): Qualifiers: Chronic kidney disease stage: stage 3 (moderate) Code(s): N18.9 - Chronic kidney disease, unspecified Status: Acute (5) Obstructive sleep apnea: Code(s): G47.33 - Obstructive sleep apnea (adult) (pediatric) Status: Chronic Assessment and Plan: Continue with oxygen. (6) Chronic renal failure, stage 3 (moderate): Code(s): N18.30 - Chronic kidney disease, stage 3 unspecified Status: Chronic (7) GERD (gastroesophageal reflux disease): Code(s): K21.9 - Gastro-esophageal reflux disease without esophagitis Status: Acute Assessment and Plan: Continue with home medications. (8) Peripheral vascular angioplasty status: Code(s): Z98.62 - Peripheral vascular angioplasty status Status: Acute Assessment and Plan: The patient has a stent the left leg. Continue with home medications. (9) Anemia: Qualifiers: Anemia type: other cause Other causes of anemia: chronic disease, other Qualified Code(s): D63.8 - Anemia in other chronic diseases classified elsewhere Code(s): D64.9 - Anemia, unspecified Status: Acute Assessment and Plan: Patient appears to be at the baseline. (10) Eczema: Code(s): L30.9 - Dermatitis, unspecified Status: Chronic Assessment and Plan: Continue with clobetasol. The patient stated that he takes injections but he is had placed him on hold as it causes immunosuppressive affect. Additional Plan CAP: Expanded abx to Levaquin vanc and cefepime. MRSA nares negative. Pseudomonas in sputum. Blood cultures pending, no growth so far. Concern for empyema on imaging, would ideally be transferred. Patient was accepted at [facility] 06/06, however preferred to see if symptoms resolve with just antibiotics before transferring for chest tube. Titrate O2 as tolerated. COPD: Q6 nebs. No DVT found in UE or LE on US. DDimer 3.87, V/Q scan with intermediate probability for PE, defer to pulm regarding anticoagulation- given low pretest probability for PE with intermediate probability on VQ scan and predicted upcoming chest tube placement PAD: S/p Lt leg stent. Hold Plavix per pulm in case he needs procedure & Eliquis. Will resume today if we decide not to move forward with chest tube & transfer. S/p Dual Chamber Pacemaker CKD3 Patient wants to proceed with transfer process now. Will call [facility] again today to re-initiate. Discussed with him that no guarantee this will happen today. He understands. Time Spent With Patient Time with patient: less than 15 minutes Subjective Date/time seen: 06/08/21 09:10 no acute complaints feels like breathing and chest pain at or close to baseline but still not back to normal, as such wants to have shest tube placed Review of Systems Review of Systems: All systems reviewed & are unremarkable except as noted in HPI and below Exam Const: General: no acute distress Neck: Neck: no JVD Resp: Effort & Inspection: normal respiratory effort Auscultation: clear to auscultation bilaterally Cardio: Rate: regular rate Rhythm: regular rhythm GI: GI Palp: Yes Soft to palpation and No Tenderness
[2021-06-08 09:24] LABS: Lactate Dehydrogenase 487 U/L (313-618)
--- NOTE | 2021-06-08 09:40 | PM.PNPUL ---
Progress Note: A&P Assessment and Plan (1) Obstructive sleep apnea: Code(s): G47.33 - Obstructive sleep apnea (adult) (pediatric) Status: Chronic Assessment and Plan: 06/03 Regarding his obstructive sleep apnea patient tells me he was tested 10 years ago and was told he had obstructive sleep apnea but could not tolerate his CPAP mask. At that time he was placed on supplemental oxygen and wears 2 L at night and he was told by his doctors in [place] that his oxygen levels were okay. Continue 2 L nasal cannula at night. 06/04 continue 3 L at night. 06/05 On 2 L last night with spot saturations 96% 06/06 On 2 L overnight with saturations 95% 06/07 On 2 L with sats 94% 06/08 On 2 L with sats 92% (2) COPD (chronic obstructive pulmonary disease): Qualifiers: COPD type: emphysema Emphysema type: panlobular Qualified Code(s): J43.1 - Panlobular emphysema Code(s): J44.9 - Chronic obstructive pulmonary disease, unspecified Status: Acute Assessment and Plan: Patient carries a history of COPD and asthma and his previous workup was done and you talk. I have no PFTs or CT scans. Patient had a blood gas on admission on 3 L nasal cannula the pH of 7.36/38/74 with an admission serum bicarb of 26. There is no evidence chronic hypercarbic respiratory failure. Patient does have chronic hypoxemic respiratory failure and requires no L with rest and 2-3 L with activity and 2 L at night. He is maintained on Advair 500-50 at 1 puff b.i.d., Spiriva 2.5 mcg at 2 puffs q.day, rescue albuterol inhaler and nebulizer and Zyrtec 10 mg p.o. q.day. patient is also on apixaban 2.5 mg p.o. q.day for his peripheral arterial disease. I suspect patient has a community-acquired pneumonia but will also treat him for COPD exacerbation has he has change in his phlegm and dyspnea on exertion. Patient is currently on Solu-Medrol and I will change the dose to 40 mg IV q.6 hours, will change him to inhaled Combivent 2 puffs q.i.d. at this time. He has no wheezing today. 06/04 No wheezes on exam. continue his albuterol 2.5 mg nebs q.6, ipratropium 0.5 mg nebs q.6 and I will change his Solu-Medrol 40 IV q.6 to prednisone 40 p.o. today 06/05 No wheezes on exam. Given the possibility of a Pseudomonas infection with an empyema, I will discontinue systemic steroids at this time and start budesonide 0.5 mg neb Q 12 hours and monitor his respiratory status. Currently is on 2 L nasal cannula saturations 95%. 06/06 no wheezes on exam. States his breathing is slowly improving on albuterol 2.5 mg nebs q.6, ipratropium 0.5 mg nebs q.6 and budesonide 0.5 mg nebs q.12 hours. Will continue. 06/07 no wheezes on exam. Stable on albuterol 2.5 mg nebs q.6, ipratropium 0.5 mg nebs q.6 and budesonide 0.5 mg nebs q.12 hours. Will continue. 06/08 no wheezes on exam. Stable on albuterol 2.5 mg nebs q.6, ipratropium 0.5 mg nebs q.6 and budesonide 0.5 mg nebs q.12 hours. Will continue. (3) CAP (community acquired pneumonia): Code(s): J18.9 - Pneumonia, unspecified organism Status: Acute Assessment and Plan: Currently patient has left-sided pleuritic chest pain, chills, sweats, shakes, phlegm production, leukocytosis and a focal infiltrate and left pleural effusion consistent with community-acquired pneumonia. Patient states he is clinically improved With less cough, less shortness of breath, less left-sided pleuritic chest pain and improved white blood cell count after 1 day of ceftriaxone and azithromycin and I will continue these currently. COVID test is pending, blood cultures and sputum culture are pending. once COVID test is negative I will consider CT of the chest to fully evaluate left lower lobe and pleural effusion. On Plavix 75 mg p.o. q.day and I will hold tonight in case he should need a thoracentesis in the future as this medicine requires a 5 day hold prior to the procedure. continue Eliquis 2.5 mg p.o
[2021-06-08] MEDS: levoFLOXacin 750 MG TABLET PO (12:58)
[2021-06-08] MEDS: TAMSULOSIN HCL 0.4 MG CAPSULE PO (13:00)
--- NOTE | 2021-06-08 14:23 | PC.NURSE ---
Pt to ultrasound for thoracentesis.
--- NOTE | 2021-06-08 14:30 | PCDIET ---
Weekly nutritional screen. Patient is tolerating current diet with adequate intake. No weight loss reported. No nutritional needs at this time.
--- NOTE | 2021-06-08 15:10 | PC.NURSE ---
Pt returned from thoracentesis with no complications noted
[2021-06-08 16:45] LABS: Appearance Pleural Fluid Turbid (Clear); Color Pleural Fluid Other (Colorless); Pleural fluid source Pleural fluid
[2021-06-08 17:23] LABS: Lymphocytes Pleural Fluid 61 %; Macrophages Pleural Fluid 10 %; Neutrophils Pleural Fluid 29 % (0-25)
[2021-06-08] MEDS: DOXEPIN HCL 25 MG CAPSULE PO (20:12)
[2021-06-08] MEDS: GABAPENTIN 300 MG CAPSULE PO (20:12)
[2021-06-08] MEDS: ATORVASTATIN 40 MG TABLET PO (20:12)
[2021-06-08] MEDS: carvediloL 25 MG TABLET 50 MG PO (20:13)
[2021-06-09] VITALS (20 sets, daily range): BP systolic 129–145; BP diastolic 63–77; PULSE 79–90; RESP 18–22; TEMP 36.1–36.6; O2SAT 94–99
[2021-06-09] MEDS: IPRATROPIUM BR 0.02% INH SOLN 0.5 MG/2.5 ML VIAL INHALATION ×4 (02:20→21:01)
[2021-06-09] MEDS: ALBUTEROL SULFATE NEB 2.5 MG/0.5 ML INH INHALATION ×4 (02:20→21:00)
[2021-06-09] MEDS: traMADol HCL (*CRX) 50 MG TABLET PO ×4 (02:58→22:32)
[2021-06-09] MEDS: ACETAMINOPHEN 500 MG TABLET PO ×4 (02:59→22:32)
[2021-06-09 05:27] LABS: Basophils Absolute Auto 0.2 K/mm3 (0.0-0.1); Basophils Percent Auto 0.6 % (0.2-1.2); Eosinophils Absolute Auto 0.1 K/mm3 (0-0.3); Eosinophils Percent Auto 0.5 % (0-4.4); Hematocrit 32.2 % (42.0-52.0); Hemoglobin 10.4 g/dL (14.0-18.0); Immature Granulocyte Absolute 2.45 K/mm3 (0.00-0.031); Immature Granulocyte Percent A 8.8 % (0-0.5); Lymphocytes Absolute Auto 0.74 K/mm3 (0.9-3.2); Lymphocytes Percent Auto 2.7 % (18.3-44.2); Mean Corpuscular HGB Conc 32.3 g/dl (32-36); Mean Corpuscular Hemoglobin 29.5 pg (26-34); Mean Corpuscular Volume 91.5 fl (80-100); Mean Platelet Volume 9.4 fl (7.4-10.4); Monocytes Absolute Auto 1.3 K/mm3 (0.1-0.6); Monocytes Percent Auto 4.6 % (2.6-8.5); Neutrophils Percent Auto 82.8 % (45.5-73.1); Platelet Count Result 227 k/mm3 (150-375); Red Blood Count 3.52 M/mm3 (4.6-6.20); Red Cell Distribution Width 13.7 % (11.5-14.5); White Blood Count 27.8 K/mm3 (4.5-10.0)
[2021-06-09 05:42] LABS: Alanine Aminotransferase 25 U/L (4-50); Alkaline Phosphatase 114 U/L (38-126); Anion Gap 6 mmol/L (8-16); Aspartate Amino Transferase 28 U/L (17-59); Bilirubin,Total 0.4 mg/dL (0.2-1.3); Blood Urea Nitrogen 47 mg/dL (9-20); Calcium 8.7 mg/dL (8.4-10.2); Carbon Dioxide 29 mmol/L (22-30); Chloride 97 mmol/L (98-107); Estimated CRCL calculation 39 ml/min; Estimated Glomerular Filt Rate 35; Glucose 114 mg/dL (65-110); Magnesium 1.9 mg/dL (1.6-2.3); Phosphorus 3.9 mg/dL (2.5-4.5); Potassium 5.4 mmol/L (3.4-5.0); Sodium 132 mmol/L (137-145)
[2021-06-09] MEDS: amLODIPine BESYLATE 5 MG TABLET 10 MG PO (08:22)
[2021-06-09] MEDS: polyethylene glycoL 3350 17 GM POWD.PACK PO (08:22)
[2021-06-09] MEDS: carvediloL 25 MG TABLET PO (08:22)
[2021-06-09] MEDS: TRIAMCINOLONE ACET 0.5% OINT 15 GM TUBE 1 APPLIC TOPICAL (08:22)
[2021-06-09] MEDS: PANTOPRAZOLE 40 MG TABLET PO (08:22)
[2021-06-09] MEDS: cloNIDine HCL 0.1 MG TABLET PO ×2 (08:22→16:56)
[2021-06-09] MEDS: TAMSULOSIN HCL 0.4 MG CAPSULE PO (08:22)
[2021-06-09] MEDS: BUDESONIDE RESPULE NEB 0.5 MG/2 ML AMP INHALATION ×2 (08:33→21:00)
--- NOTE | 2021-06-09 09:14 | PM.PNPUL ---
Progress Note: A&P Assessment and Plan (1) Obstructive sleep apnea: Code(s): G47.33 - Obstructive sleep apnea (adult) (pediatric) Status: Chronic Assessment and Plan: 06/03 Regarding his obstructive sleep apnea patient tells me he was tested 10 years ago and was told he had obstructive sleep apnea but could not tolerate his CPAP mask. At that time he was placed on supplemental oxygen and wears 2 L at night and he was told by his doctors in [place] that his oxygen levels were okay. Continue 2 L nasal cannula at night. 06/04 continue 3 L at night. 06/05 On 2 L last night with spot saturations 96% 06/06 On 2 L overnight with saturations 95% 06/07 On 2 L with sats 94% 06/08 On 2 L with sats 92% 06/09 On 2 L with sats 97% (2) COPD (chronic obstructive pulmonary disease): Qualifiers: COPD type: emphysema Emphysema type: panlobular Qualified Code(s): J43.1 - Panlobular emphysema Code(s): J44.9 - Chronic obstructive pulmonary disease, unspecified Status: Acute Assessment and Plan: Patient carries a history of COPD and asthma and his previous workup was done and you talk. I have no PFTs or CT scans. Patient had a blood gas on admission on 3 L nasal cannula the pH of 7.36/38/74 with an admission serum bicarb of 26. There is no evidence chronic hypercarbic respiratory failure. Patient does have chronic hypoxemic respiratory failure and requires no L with rest and 2-3 L with activity and 2 L at night. He is maintained on Advair 500-50 at 1 puff b.i.d., Spiriva 2.5 mcg at 2 puffs q.day, rescue albuterol inhaler and nebulizer and Zyrtec 10 mg p.o. q.day. patient is also on apixaban 2.5 mg p.o. q.day for his peripheral arterial disease. I suspect patient has a community-acquired pneumonia but will also treat him for COPD exacerbation has he has change in his phlegm and dyspnea on exertion. Patient is currently on Solu-Medrol and I will change the dose to 40 mg IV q.6 hours, will change him to inhaled Combivent 2 puffs q.i.d. at this time. He has no wheezing today. 06/04 No wheezes on exam. continue his albuterol 2.5 mg nebs q.6, ipratropium 0.5 mg nebs q.6 and I will change his Solu-Medrol 40 IV q.6 to prednisone 40 p.o. today 06/05 No wheezes on exam. Given the possibility of a Pseudomonas infection with an empyema, I will discontinue systemic steroids at this time and start budesonide 0.5 mg neb Q 12 hours and monitor his respiratory status. Currently is on 2 L nasal cannula saturations 95%. 06/06 no wheezes on exam. States his breathing is slowly improving on albuterol 2.5 mg nebs q.6, ipratropium 0.5 mg nebs q.6 and budesonide 0.5 mg nebs q.12 hours. Will continue. 06/07 no wheezes on exam. Stable on albuterol 2.5 mg nebs q.6, ipratropium 0.5 mg nebs q.6 and budesonide 0.5 mg nebs q.12 hours. Will continue. 06/08 no wheezes on exam. Stable on albuterol 2.5 mg nebs q.6, ipratropium 0.5 mg nebs q.6 and budesonide 0.5 mg nebs q.12 hours. Will continue. 06/09 No wheezes. Continue albuterol and ipratropium nebulizers. Continue budesonide nebulizers q.12 hours. (3) CAP (community acquired pneumonia): Code(s): J18.9 - Pneumonia, unspecified organism Status: Acute Assessment and Plan: Currently patient has left-sided pleuritic chest pain, chills, sweats, shakes, phlegm production, leukocytosis and a focal infiltrate and left pleural effusion consistent with community-acquired pneumonia. Patient states he is clinically improved With less cough, less shortness of breath, less left-sided pleuritic chest pain and improved white blood cell count after 1 day of ceftriaxone and azithromycin and I will continue these currently. COVID test is pending, blood cultures and sputum culture are pending. once COVID test is negative I will consider CT of the chest to fully evaluate left lower lobe and pleural effusion. On Plavix 75 mg p.o. q.day and I will hold tonight in case
--- NOTE | 2021-06-09 19:20 | PM.IMPN ---
Progress Note: A&P Assessment and Plan (1) Loculated empyema: Code(s): J86.9 - Pyothorax without fistula Status: Acute (2) CAP (community acquired pneumonia): Code(s): J18.9 - Pneumonia, unspecified organism Status: Acute (3) Chronic renal failure, stage 3 (moderate): Code(s): N18.30 - Chronic kidney disease, stage 3 unspecified Status: Chronic (4) Obstructive sleep apnea: Code(s): G47.33 - Obstructive sleep apnea (adult) (pediatric) Status: Chronic (5) Hypertension: Qualifiers: Hypertension type: primary hypertension Qualified Code(s): I10 - Essential (primary) hypertension Code(s): I10 - Essential (primary) hypertension Status: Chronic (6) GERD (gastroesophageal reflux disease): Code(s): K21.9 - Gastro-esophageal reflux disease without esophagitis Status: Acute (7) Peripheral vascular angioplasty status: Code(s): Z98.62 - Peripheral vascular angioplasty status Status: Acute (8) Eczema: Code(s): L30.9 - Dermatitis, unspecified Status: Chronic (9) Anemia: Qualifiers: Anemia type: other cause Other causes of anemia: chronic disease, other Qualified Code(s): D63.8 - Anemia in other chronic diseases classified elsewhere Code(s): D64.9 - Anemia, unspecified Status: Acute Additional Plan 70-year-old male admitted with pneumonia found to have loculated pleural effusion. He has been treated with IV antibiotic therapy with failed resolution and will require transfer to higher level care center for CTS evaluation and surgical intervention. 06/09/2021 Continue IV antibiotics pseudomonal coverage as per her sputum cultures Patient remains medically stable for discharge to [facility] Currently waiting bed Plan of care reviewed with patient extensively and he is in agreement. Plavix and Eliquis have been held start on low molecular weight heparin 1mg/kg Time Spent With Patient Time with patient: 25 - 35 minutes Subjective Date/time seen: 06/09/21 19:20 pt doing ok awaiting transfer to [facility] for CTS eval no new complaints agrees to transfer Exam Narrative: GEN: NAD, AAOx2, cooperative HEENT: NCAT, MMM, EOMI Neck: no JVD Heart: S1S2 RRR Lungs: CTA B/l Abd: soft, NT, ND, bowel sounds normoactive Ext: moves all, no cyanosis, no clubbing, no edema Neuro: slow cognition, moves all extremities equally, unsteady gait Psych: mood reduced, affect congruent flattened, poor eye contact Objective Data Vital Signs Vital Signs: Vital Signs - 24 hr 06/08/21 20:00 06/08/21 20:02 06/08/21 20:03 Temperature 97.8 F Pulse Rate 90 91 Respiratory Rate 20 20 Blood Pressure 150/61 H Pulse Oximetry 97 97 06/08/21 20:13 06/08/21 20:21 06/08/21 23:09 Temperature 97.6 F Pulse Rate 78 90 84 Respiratory Rate 18 20 Blood Pressure 116/55 L Pulse Oximetry 96 06/09/21 00:00 06/09/21 02:20 06/09/21 04:00 Temperature Pulse Rate 79 82 82 Respiratory Rate 18 Blood Pressure Pulse Oximetry 06/09/21 04:14 06/09/21 08:00 06/09/21 08:22 Temperature 97.5 F L Pulse Rate 89 85 86 Respiratory Rate 22 H Blood Pressure 129/70 Pulse Oximetry 94 99 06/09/21 08:30 06/09/21 08:48 06/09/21 08:49 Temperature Pulse Rate 83 89 Respiratory Rate 22 H 18 Blood Pressure Pulse Oximetry 98 06/09/21 08:56 06/09/21 12:00 06/09/21 14:00 Temperature 96.9 F L Pulse Rate 83 87 90 Respiratory Rate 21 H 20 Blood Pressure 145/77 H Pulse Oximetry 99 06/09/21 14:15 06/09/21 16:00 Temperature 97.8 F Pulse Rate 89 88 Respiratory Rate 18 18 Blood Pressure 141/74 H Pulse Oximetry 95 Intake/Output Intake/Output: Intake & Output 06/06/21 06/07/21 06/08/21 06/09/21 23:59 23:59 23:59 23:59 Intake Total 1470 1550 840 480 Output Total 5940 6040 1330 9944 [id number] -191 -[phone] -[id number] -2411 Meds/Results Medications: Active Medications
[2021-06-09] MEDS: GABAPENTIN 300 MG CAPSULE PO (21:53)
[2021-06-09] MEDS: DOXEPIN HCL 25 MG CAPSULE PO (21:53)
[2021-06-09] MEDS: carvediloL 25 MG TABLET 50 MG PO (21:53)
[2021-06-09] MEDS: ATORVASTATIN 40 MG TABLET PO (21:53)
[2021-06-09] MEDS: ENOXAPARIN 120 MG/0.8 ML SYRINGE 105 MG SUB-Q (21:54)
[2021-06-10] VITALS (14 sets, daily range): BP systolic 122–137; BP diastolic 61–67; PULSE 71–98; RESP 18–22; TEMP 36.8–37.1; O2SAT 94–100
[2021-06-10] MEDS: IPRATROPIUM BR 0.02% INH SOLN 0.5 MG/2.5 ML VIAL INHALATION ×2 (02:25→08:10)
[2021-06-10] MEDS: ALBUTEROL SULFATE NEB 2.5 MG/0.5 ML INH INHALATION ×2 (02:25→08:10)
[2021-06-10] MEDS: ACETAMINOPHEN 500 MG TABLET PO ×3 (04:41→17:21)
[2021-06-10] MEDS: traMADol HCL (*CRX) 50 MG TABLET PO ×3 (04:41→17:22)
[2021-06-10] MEDS: BUDESONIDE RESPULE NEB 0.5 MG/2 ML AMP INHALATION (08:10)
[2021-06-10] MEDS: amLODIPine BESYLATE 5 MG TABLET 10 MG PO (10:27)
[2021-06-10] MEDS: TAMSULOSIN HCL 0.4 MG CAPSULE PO (10:27)
[2021-06-10] MEDS: ENOXAPARIN 120 MG/0.8 ML SYRINGE 105 MG SUB-Q (10:27)
[2021-06-10] MEDS: PANTOPRAZOLE 40 MG TABLET PO (10:28)
[2021-06-10] MEDS: levoFLOXacin 750 MG TABLET PO (10:28)
[2021-06-10] MEDS: cloNIDine HCL 0.1 MG TABLET PO ×2 (10:29→18:47)
[2021-06-10] MEDS: carvediloL 25 MG TABLET PO (10:29)
[2021-06-10] MEDS: TRIAMCINOLONE ACET 0.5% OINT 15 GM TUBE 1 APPLIC TOPICAL (10:30)
[2021-06-10] MEDS: polyethylene glycoL 3350 17 GM POWD.PACK PO (10:30)
--- NOTE | 2021-06-10 15:12 | ECG_ITS ---
Measurements Intervals [place] Rate: 86 P: 72 OH: 178 QRS: -9 QRSD: 122 T: 124 QT: 345 QTc: 413 Interpretive Statements ATRIAL SENSE- ELECTRONIC VENTRICULAR PACEMAKER NO FURTHER INTERPRETATION IS POSSIBLE ATYPICAL ECG Electronically Signed On 06-10-2021 15:32:50 CDT by Juan David George D.O.
[2021-06-10 16:08] LABS: Troponin I < 0.012 ng/mL (0.000-0.034)
--- NOTE | 2021-06-10 19:53 | PC.NURSE ---
EMS transport arrival at 1939 to transport patient to [facility]. Report given to EMS transport personal. Patient sent with all belongings brought in with him to hospital. EMS departed unit at 1950 with patient.
--- NOTE | 2021-06-10 22:29 | PM.DS ---
DS: Admitting Diagnosis Discharge Date 06/10/21 Admitting Diagnosis (1) CAP (community acquired pneumonia): Code(s): J18.9 - Pneumonia, unspecified organism Status: Acute Assessment and Plan: Continue with azithromycin Rocephin and nebulizer treatments per antibiotic stewardship. Patient has leukocytosis. Blood cultures sputum cultures are pending. 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 Pulmonology consult has been greatly appreciated. The patient does have oxygen at home he wears 3 L at night for sleep apnea then he also wears it for p.r.n. shortness of breath as well. (3) Hypertension: Qualifiers: Hypertension type: primary hypertension Qualified Code(s): I10 - Essential (primary) hypertension Code(s): I10 - Essential (primary) hypertension Status: Chronic Assessment and Plan: Continue with home medications. Patient appears to be on Coreg. (4) CKD (chronic kidney disease): Qualifiers: Chronic kidney disease stage: stage 3 (moderate) Code(s): N18.9 - Chronic kidney disease, unspecified Status: Acute Assessment and Plan: Patient's creatinine is 2.4 today previous Radha of this year was 1.91. The patient stated that he does feel like he is dry. Hold any nephrotoxic medications and continue to monitor (5) Obstructive sleep apnea: Code(s): G47.33 - Obstructive sleep apnea (adult) (pediatric) Status: Chronic Assessment and Plan: Continue with oxygen. (6) Chronic renal failure, stage 3 (moderate): Code(s): N18.30 - Chronic kidney disease, stage 3 unspecified Status: Chronic Assessment and Plan: Continue to monitor. Patient's creatinine is 2.4 his last creatinine was listed as 1.91. (7) GERD (gastroesophageal reflux disease): Code(s): K21.9 - Gastro-esophageal reflux disease without esophagitis Status: Acute Assessment and Plan: Continue with home medications. (8) Peripheral vascular angioplasty status: Code(s): Z98.62 - Peripheral vascular angioplasty status Status: Acute Assessment and Plan: The patient has a stent the left leg. Continue with home medications. (9) Anemia: Qualifiers: Anemia type: other cause Other causes of anemia: chronic disease, other Qualified Code(s): D63.8 - Anemia in other chronic diseases classified elsewhere Code(s): D64.9 - Anemia, unspecified Status: Acute Assessment and Plan: Patient appears to be at the baseline. (10) Eczema: Code(s): L30.9 - Dermatitis, unspecified Status: Chronic Assessment and Plan: Continue with clobetasol. The patient stated that he takes injections but he is had placed him on hold as it causes immunosuppressive affect. DS: Discharge Diagnosis Discharge Diagnosis (1) Loculated empyema: Code(s): J86.9 - Pyothorax without fistula Status: Acute (2) AICD (automatic cardioverter/defibrillator) present: Code(s): Z95.810 - Presence of automatic (implantable) cardiac defibrillator Status: Chronic (3) Eczema: Code(s): L30.9 - Dermatitis, unspecified Status: Chronic (4) Obstructive sleep apnea: Code(s): G47.33 - Obstructive sleep apnea (adult) (pediatric) Status: Chronic (5) CKD (chronic kidney disease): Qualifiers: Chronic kidney disease stage: stage 3 (moderate) Code(s): N18.9 - Chronic kidney disease, unspecified Status: Acute (6) GERD (gastroesophageal reflux disease): Code(s): K21.9 - Gastro-esophageal reflux disease without esophagitis Status: Acute (7) COPD (chronic obstructive pulmonary disease): Q
--- NOTE | 2021-06-10 22:50 | PM.TDS ---
Transfer Discharge Sum: Prov Provider Date of admission: 06/02/21 16:39 Primary care physician: Ross Espinosa MD Admitting clinician: Michelle Carlson MD Consults: 06/02/21 Consult to Physician Routine Comment: md is notified of the consult Consulting Provider: Talon Landeros callisthenics instructor/MD group to consult: Pulmonology Reason for consultation: Uncontrolled COPD Has provider been notified: Yes DS: Admitting Diagnosis Discharge Date 06/10/21 Admitting Diagnosis 1) CAP (community acquired pneumonia): Code(s): J18.9 - Pneumonia, unspecified organism Status: Acute Assessment and Plan: Continue with azithromycin Rocephin and nebulizer treatments per antibiotic stewardship. Patient has leukocytosis. Blood cultures sputum cultures are pending. 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 Pulmonology consult has been greatly appreciated. The patient does have oxygen at home he wears 3 L at night for sleep apnea then he also wears it for p.r.n. shortness of breath as well. (3) Hypertension: Qualifiers: Hypertension type: primary hypertension Qualified Code(s): I10 - Essential (primary) hypertension Code(s): I10 - Essential (primary) hypertension Status: Chronic Assessment and Plan: Continue with home medications. Patient appears to be on Coreg. (4) CKD (chronic kidney disease): Qualifiers: Chronic kidney disease stage: stage 3 (moderate) Code(s): N18.9 - Chronic kidney disease, unspecified Status: Acute Assessment and Plan: Patient's creatinine is 2.4 today previous February of this year was 1.91. The patient stated that he does feel like he is dry. Hold any nephrotoxic medications and continue to monitor (5) Obstructive sleep apnea: Code(s): G47.33 - Obstructive sleep apnea (adult) (pediatric) Status: Chronic Assessment and Plan: Continue with oxygen. (6) Chronic renal failure, stage 3 (moderate): Code(s): N18.30 - Chronic kidney disease, stage 3 unspecified Status: Chronic Assessment and Plan: Continue to monitor. Patient's creatinine is 2.4 his last creatinine was listed as 1.91. (7) GERD (gastroesophageal reflux disease): Code(s): K21.9 - Gastro-esophageal reflux disease without esophagitis Status: Acute Assessment and Plan: Continue with home medications. (8) Peripheral vascular angioplasty status: Code(s): Z98.62 - Peripheral vascular angioplasty status Status: Acute Assessment and Plan: The patient has a stent the left leg. Continue with home medications. (9) Anemia: Qualifiers: Anemia type: other cause Other causes of anemia: chronic disease, other Qualified Code(s): D63.8 - Anemia in other chronic diseases classified elsewhere Code(s): D64.9 - Anemia, unspecified Status: Acute Assessment and Plan: Patient appears to be at the baseline. (10) Eczema: Code(s): L30.9 - Dermatitis, unspecified Status: Chronic Assessment and Plan: Continue with clobetasol. The patient stated that he takes injections but he is had placed him on hold as it causes immunosuppressive affect. DS: Discharge Diagnosis Discharge Diagnosis (1) Loculated empyema: Code(s): J86.9 - Pyothorax without fistula Status: Acute (2) AICD (automatic cardioverter/defibrillator) present: Code(s): Z95.810 - Presence of automatic (implantable) cardiac defibrillator Status: Chronic (3) Eczema: Code(s): L30.9 - Dermatitis, unspecified Status: Chronic (4) CAP (community acquired pneumonia): Code(s): J18.9 - Pneumonia, unsp
== END 2021-06-10 19:51 | disposition short-term general hospital (02) | DRG 193 ==
LOC: ANHED 14:27 → ANHIMU 19:59
PROVIDERS: Hospitalist; Internal Medicine Pulmonary Disease; Nurse Practitioner; Admitting Provider Family Medicine; Emergency Provider Emergency Medicine; PCP Internal Medicine; Visit Provider Internal Medicine
DX: J18.9 Pneumonia, unspecified organism (principal); J86.9 Pyothorax without fistula; N17.9 Acute kidney failure, unspecified; J96.11 Chronic respiratory failure with hypoxia; J43.1 Panlobular emphysema; Z99.81 Dependence on supplemental oxygen; Z20.822 Contact with and (suspected) exposure to COVID-19; J45.909 Unspecified asthma, uncomplicated; G47.33 Obstructive sleep apnea (adult) (pediatric); D63.8 Anemia in other chronic diseases classified elsewhere; I12.9 Hypertensive chronic kidney disease with stage 1 through stage 4 chronic kidney disease, or unspecified chronic kidney disease; N18.30 Chronic kidney disease, stage 3 unspecified; K21.9 Gastro-esophageal reflux disease without esophagitis; I73.9 Peripheral vascular disease, unspecified; L30.9 Dermatitis, unspecified; R79.89 Other specified abnormal findings of blood chemistry; E87.5 Hyperkalemia; Z79.01 Long term (current) use of anticoagulants; Z79.52 Long term (current) use of systemic steroids; Z86.16 Personal history of COVID-19; Z87.891 Personal history of nicotine dependence; Z95.810 Presence of automatic (implantable) cardiac defibrillator; Z95.820 Peripheral vascular angioplasty status with implants and grafts
CPT/HCPCS: 32555; 36415; 36600; 71045; 71046; 71250; 78580; 80048; 80053; 80202; 82042; 82150; 82805; 82945; 83605; 83615; 83735; 83986; 84100; 84157; 84311; 84443; 84478; 84484; 85025; 85380; 85610; 85730; 86140; 87015; 87040; 87070; 87075; 87077; 87081; 87102; 87116; 87186; 87205; 87206; 88104; 88108; 88305; 88307; 89051; 93005; 93970; 94640; 96365; 96367; 97161; 99285; A9270; A9540; C9803; J0456; J0692; J0696; J1650; J2920; J2930; J3370; J7030; U0003; U0005

== ENCOUNTER 2021-07-17 10:06 | Inpatient (IN) | payer OTHER, MEDICARE, SELFPAY ==
[2021-07-17] VITALS (18 sets, daily range): BP systolic 128–172; BP diastolic 88–110; PULSE 108–130; RESP 18–28; TEMP 36.1–37.2; O2SAT 97–100; BMI 30.8
--- NOTE | ~2021-07-17 | NM_ITS ---
NM pulmonary perfusion INDICATION: Shortness of breath. TECHNIQUE: Following ventilation scan, 4.8 mCi Tc 99m MAA was injected intravenously for perfusion im ages. Multiple images were then acquired. COMPARISON: Chest x-ray dated 07/17/2021 FINDINGS: The comparison chest radiograph extensive airspace disease of the left mid and bilateral lo wer lung zones. Small left pleural effusion.. Perfusion images demonstrate an unchanged large defect of the left lower lung zone which is a not significantly changed there is a new moderate size perfusi on abnormality of the right lower lung. IMPRESSION: 1: Intermediate probability for pulmonary embolism. Reviewed, dictated and finalized at location A. [facility]
--- NOTE | ~2021-07-17 | XR_ITS ---
EXAMINATION: XR chest 2V DATE: 07/17/2021 10:31 INDICATION: Lung surgery, hypertension and COPD presenting with shortness of breath TECHNIQUE: frontal and lateral views of the chest were obtained. COMPARISON: Chest radiograph dated 06/07/[address] dated 06/08/2021 FINDINGS: Emphysema with hyperexpansion of lungs and region of increased lucency and architectural distortion m ost prominent in the right midlung zone. Pulmonary vascular congestion and increased interstitial pat tern most prominent at the lung bases with some associated peripheral Chantelle B-lines consistent with mild pulmonary edema. More patchy airspace opacities in the left lower lung zone which could represen t atelectasis or pneumonia. Interval decrease in size of a small loculated left pleural effusion. The cardiomediastinal silhouette is normal. Dual lead pacemaker seen with leads projecting over the expe cted locations of the right atrium and right ventricle. Dual-lumen right internal jugular central edison ous catheter with distal tip at the caudal superior vena cava. Couple surgical clips at the right bas e of the neck which may relate to prior carotid endarterectomy. Atherosclerotic calcific a cyst at th e contralateral left carotid bulb. IMPRESSION: 1. Decrease in size of a small left pleural effusion with residual patchy airspace opacities at the l eft lower lung zone which could represent associated atelectasis or pneumonia. 2. Mild pulmonary edema. 3. Emphysema. Reviewed, dictated and finalized at location A. [facility] IMPRESSION: 1. Decrease in size of a small left pleural effusion with residual patchy airsp milly opacities at the left lower lung zone which could represent associated atel ectasis or pneumonia. 2. Mild pulmonary edema. 3. Emphysema.
--- NOTE | ~2021-07-17 | CT_ITS ---
EXAMINATION: CT diagnostic chest wo con EXAM DATE: 07/22/2021 12:31 INDICATION: Pleural effusion, shortness of breath. History COPD. TECHNIQUE: Spiral CT of the chest without contrast. Axial, coronal and sagittal images of the chest were reviewed. Coronal maximum intensity pixel images of chest reviewed. The dose-length product ( DLP) for this examination was 335.40 mGy-cm. The exposure was tailored according to patient size (au to mA exposure control), and iterative reconstruction (ASIR) was used as additional dose reduction te chnique. Comparison is made to prior examination from 06/08/2021. FINDINGS: There is severe emphysema. There are small bilateral pleural effusions with diffuse left pleural thickening indicating this is chronic on that side. There is segmental left lower lobe multif ocal atelectasis with improvement compared to last month. Left lower lobe granuloma. Tracheobronchi al tree is patent. Mediastinal lymphadenopathy, with one of the larger precarinal lymph nodes measu ring 1.9 x 1.5 cm. Probably reactive. Pacemaker/AICD device. There is no pneumothorax. Heart natalie l in size. Small hyperdense left renal lesion likely hemorrhagic cyst. Interval development of lef t 7th and 8th rib fractures posteriorly. There is mild distraction of the 8th rib fracture, the 7th i s nondisplaced. IMPRESSION: 1. Acute left 7th, 8th rib fractures. 2. Scattered segmental left lower lobe atelectasis, interval improvement. 3. Small bilateral pleural effusions. 4. Persistent mediastinal lymphadenopathy, probably reactive. 5. Moderate emphysema. Reviewed, dictated and finalized at location A. ONARY FELLOW
--- NOTE | ~2021-07-17 | US_ITS ---
EXAMINATION:US venous doppler LE BI INDICATION:Leg swelling and tachycardia TECHNIQUE: Multiple grayscale, color flow and Doppler images of the right and left lower extremity de ep venous systems were obtained and reviewed. COMPARISON:06/04/2021 FINDINGS: The common femoral, superficial femoral and popliteal veins demonstrate normal respiratory variation, augmentation and compressibility. Color flow is also seen within the posterior tibial, pe roneal, greater saphenous and profunda veins. IMPRESSION: 1: No lower extremity deep venous thrombosis. Reviewed, dictated and finalized at location A. [facility]
--- NOTE | 2021-07-17 10:15 | ED.GENADULT ---
HPI - General Adult General Chief complaint: Shortness of Breath/Dyspnea <Juanita Moseley PA-C - Last Filed: 07/17/21 15:49> Stated complaint: SOB <Juanita Moseley PA-C - Last Filed: 07/17/21 15:49> Time Seen by Provider: 07/17/21 10:10 <Juanita Moseley PA-C - Last Filed: 07/17/21 15:49> Source: patient and family <Juanita Moseley PA-C - Last Filed: 07/17/21 15:49> Mode of arrival: EMS <MIGUE Don Last Filed: 07/17/21 15:49> Limitations: no limitations <Juanita Moseley PA-C - Last Filed: 07/17/21 15:49> History of Present Illness HPI narrative: 70-year-old male is here for worsening shortness of breath. He has a long history of COPD and a recent history of left lung empyema with surgical intervention and antibiotics via PICC line at home. He states that this episode has been getting progressively worse over the last 2 weeks, he saw his primary care physician 3 days ago was given Lasix and potassium for his leg swelling. He is currently on 4 L a minute and a saturation of 100%, but he states that he needs that flow feel comfortable. He is normally on 2 L a minute. He denies any fevers with this. He states that when he wakes up at night he is very congested, he coughs up a large amount of mucus and takes a breathing treatment in order to go back to sleep. <Juanita Moseley PA-C - Last Filed: 07/17/21 15:49> Onset (ago): day(s) <MIGUE Don Last Filed: 07/17/21 15:49> Exacerbating factors: movement <Juanita Moseley PA-C - Last Filed: 07/17/21 15:49> Associated symptoms: cough <MIGUE Don Last Filed: 07/17/21 15:49> Treatments prior to arrival: other (lasix and albuterol) <Juainta Moseley PA-C - Last Filed: 07/17/21 15:49> Related Data Home medications: Home Medications Medication Instructions Recorded Confirmed albuterol sulfate 2.5 mg INHALATION Q4-6H PRN 03/03/21 07/17/21 albuterol sulfate 90 mcg/actuation 1 puff INHALATION Q4H PRN 03/03/21 07/17/21 aerosol inhaler apixaban 2.5 mg tablet 2.5 mg PO BID 03/03/21 07/17/21 atorvastatin 40 mg tablet 40 mg PO QHS 03/03/21 07/17/21 carvedilol 25 mg tablet 12.5 mg PO BID tablet 03/03/21 07/17/21 cetirizine 10 mg tablet 10 mg PO HS 03/03/21 07/17/21 clopidogrel 75 mg tablet 75 mg PO DAILY 03/03/21 07/17/21 gabapentin 300 mg capsule 300 mg PO DAILY PRN 03/03/21 07/17/21 omeprazole 20 mg capsule,delayed 20 mg PO DAILY 03/03/21 07/17/21 release tiotropium bromide 2.5 2 puff INHALATION DAILY 03/03/21 07/17/21 mcg/actuation mist for inhalation tramadol 50 mg tablet 50 mg PO Q6H PRN 03/03/21 07/17/21 triamcinolone acetonide 0.05 % 1 applic TOPICAL DAILY 03/03/21 07/17/21 topical ointment acetaminophen 500 mg PO Q6H PRN 06/02/21 07/17/21 carvedilol 25 mg PO BID 06/02/21 07/17/21 prednisone 40 mg PO DAILY 06/02/21 07/17/21 Adults Multivitamin 1 tablet PO DAILY 07/17/21 07/17/21 melatonin 5 mg PO HS 07/17/21 07/17/21 polyethylene glycol 3350 [Miralax] 17 g PO DAILY 07/17/21 07/17/21 tamsulosin 0.8 mg PO QPM 07/17/21 07/17/21 <Juanita Moseley PA-C - Last Filed: 07/17/21 15:49> Allergies/adverse reactions: Allergies Allergy/AdvReac Type Severity Reaction Status Date / Time amoxicillin [From Augmentin] Allergy Swelling Verified 07/17/21 18:48 clavulanic acid Allergy Swelling Verified 07/17/21 18:48 [From Augmentin] <Juanita Moseley PA-C - Last Filed: 07/17/21 15:49> Review of Systems Review of Systems: All systems reviewed & are unremarkable except as noted in HPI and below <Juanita Moseley PA-C - Last Filed: 07/17/21 15:49> [facility] Past Medical History Medical History: Medical History (Updated 07/17/21 @ 23:06 by Na De Santiago PA-C) Anemia Arthritis AV block Status post Medtronic pacemaker placement. Benign prostatic hyperplasia Chronic anemia Chronic kidney disease, stage 3 COPD with emphysema COVID-19 (04/2020) [facility]ze
--- NOTE | 2021-07-17 10:16 | ECG_ITS ---
Measurements Intervals [place] Rate: 116 P: 36 IN: 146 QRS: 20 QRSD: 150 T: 169 QT: 350 QTc: 487 Interpretive Statements ATRIAL SENSE- ELECTRONIC VENTRICULAR PACEMAKER UNDERLYING SINUS OR ECTOPIC ATRIAL TACHYCARDIA. BASELINE ARTIFACT- I, II, AVR, AVL, AVF, V4 NO FURTHER INTERPRETATION IS POSSIBLE ABNORMAL ECG Electronically Signed On 07-17-2021 11:36:52 PSYCHOLOGIST EDUCATIONAL by Juan David George D.O.
[2021-07-17 10:48] LABS: Basophils Percent Auto 0.4 % (0.2-1.2); Eosinophils Absolute Auto 0.1 K/mm3 (0-0.3); Eosinophils Percent Auto 1.2 % (0-4.4); Hematocrit 30.5 % (42.0-52.0); Hemoglobin 9.3 g/dL (14.0-18.0); Immature Granulocyte Absolute 0.03 K/mm3 (0.00-0.031); Immature Granulocyte Percent A 0.3 % (0-0.5); Lymphocytes Absolute Auto 0.84 K/mm3 (0.9-3.2); Lymphocytes Percent Auto 8.6 % (18.3-44.2); Mean Corpuscular HGB Conc 30.5 g/dl (32-36); Mean Corpuscular Hemoglobin 29.7 pg (26-34); Mean Corpuscular Volume 97.4 fl (80-100); Mean Platelet Volume 8.8 fl (7.4-10.4); Monocytes Absolute Auto 0.6 K/mm3 (0.1-0.6); Monocytes Percent Auto 6.6 % (2.6-8.5); Neutrophils Absolute Auto 8.1 K/mm3 (1.3-6.7); Neutrophils Percent Auto 82.9 % (45.5-73.1); Platelet Count Result 349 k/mm3 (150-375); Red Blood Count 3.13 M/mm3 (4.6-6.20); White Blood Count 9.8 K/mm3 (4.5-10.0)
[2021-07-17 10:59] LABS: Alanine Aminotransferase 13 U/L (4-50); Albumin Level 3.1 g/dL (3.5-5.1); Alkaline Phosphatase 91 U/L (38-126); Anion Gap 0 mmol/L (8-16); Aspartate Amino Transferase 34 U/L (17-59); Bilirubin,Total 0.3 mg/dL (0.2-1.3); Blood Urea Nitrogen 20 mg/dL (9-20); Calcium 8.8 mg/dL (8.4-10.2); Carbon Dioxide 33 mmol/L (22-30); Chloride 102 mmol/L (98-107); Estimated CRCL calculation 44 ml/min; Estimated Glomerular Filt Rate 43; Glucose 121 mg/dL (65-110); Potassium 4.1 mmol/L (3.4-5.0); Sodium 135 mmol/L (137-145)
[2021-07-17 11:33] LABS: Troponin I 0.044 ng/mL (0.000-0.034)
[2021-07-17] MEDS: FUROSEMIDE INJ 40 MG/4 ML VIAL IV PUSH ×2 (11:38→23:59)
[2021-07-17] MEDS: IPRATROPIUM BR 0.02% INH SOLN 0.5 MG/2.5 ML VIAL INHALATION (11:46)
[2021-07-17] MEDS: ALBUTEROL SULFATE NEB 2.5 MG/3 ML INH INHALATION (11:46)
[2021-07-17 14:32] LABS: Troponin I 0.048 ng/mL (0.000-0.034)
[2021-07-17] MEDS: traMADol HCL (*CRX) 50 MG TABLET PO ×2 (16:23→23:55)
[2021-07-17] MEDS: ACETAMINOPHEN 325 MG TABLET 650 MG PO (16:23)
--- NOTE | 2021-07-17 16:30 | PM.IMHP ---
H&P: HPI History of Present Illness Date/Time: 07/17/21 16:30 Chief Complaint: Shortness of breath. Narrative: This is a pleasant 70-year-old male with history of hypertension, peripheral vascular disease, sleep apnea on home oxygen, GERD, chronic kidney disease, and several other comorbidities who presented to the emergency department earlier today via EMS from home for evaluation of shortness of breath. He is known to the hospitalist service with a recent admission between 06/02/2021 and 06/10/2021 at which time he was admitted with pneumonia and COPD exacerbation. His sputum did grow Pseudomonas and a subsequent chest CT revealed a complex left pleural effusion with loculations. Thoracentesis was performed and studies were consistent with empyema and he was transferred to [place] for further care where he had a thoracotomy with decortication. He has been home for a couple of weeks now and has recently transitioned from antibiotic infusions to oral antibiotics; reports indicate pleural effusion grew out strep intermedius and straph hominis. Since discharge he has been more short of breath than his baseline and quite edematous. In fact he was recently seen by his primary care provider and was started on Lasix with improvement in his upper extremity edema though he continues to have pretty significant swelling in his legs. He typically only uses oxygen at nighttime but has been using it throughout the day now due to shortness of breath with minimal activity, for instance he gets winded when walking 40 ft from the bedroom to the kitchen. Additionally it sounds as though he has been suffering from orthopnea, not sleeping well for the last several days due to shortness of breath, with reports of feeling better when sitting at the side of the bed and leaning over his walker. He has been using his nebulizer every 4 hours but that seems to only provide him with relief for may be an hour so. He continues to have a cough productive of clear but sometimes green sputum. He also continues to have left-sided pleuritic chest pain from his recent surgery and that is also unchanged. Since arrival to the emergency department he has remained tachycardic in the a mid 110s to 120s and he reports feelings of racing heart. EKG shows atrial sensed electronic ventricular pacemaker with underlying sinus or ectopic atrial tachycardia. Initial concerns were for possible pulmonary embolism however the patient was told that he should never receive IV contrast given his chronic kidney disease thus a V/Q scan was ordered which demonstrated intermediate probability for PE. Venous Doppler ultrasounds of the lower extremity showed no evidence of DVT. Chest x-ray today showed a decrease in a small left pleural effusion with residual patchy airspace opacities that may be atelectasis or pneumonia as well as mild pulmonary edema and emphysema. He has received 1 dose of IV Lasix and has thus far put out approximately 1200 mL of urine. He denies fever, chills, sweats, sinus congestion, rhinorrhea, otalgia, odynophagia, exertional chest pain, syncope, near syncope, vomiting, and diarrhea. Review of Systems Review of Systems: 12 systems were reviewed. No syncope or near syncope. No cold or flu symptoms. No sick contacts. Reports mild claudication with ambulation though his activities limited due to his shortness of breath. Patient had issues with urinary retention while hospital at [place] at the and of May and he currently has an indwelling [place] catheter. Except as documented, all other systems were reviewed and are negative. [facility] Past Medical History Medical History (Updated 07/17/21 @ 23:06 by Na De Santiago PA-C) Anemia Arthritis AV block Status post Medtronic pacemaker placement. Benign prostatic hyperplasia Chronic anemia Chronic kidney disease, stage 3 COPD with emphysema COVID-19 (04/2020) Eczema Empyema of left pleural space (05/2021) Pleural fluid grew out strep intermedius in staph homin
--- NOTE | 2021-07-17 17:47 | PC.NURSE ---
This patient, Freddy Hill, was admitted to IMU Room 214-01. Patient/family oriented to hospital policies and general routines including ID bracelet, bed and alarms, visiting hours, pain management, procedures, bathroom and other care routines, personal items, smoking policy, room service/diet, and visiting hours. Information on how to activate the Rapid Response Team has been discussed. Patient/Family are encouraged to report perceived risks to care and to ask questions if they do not understand what they are told or what they should do.
[2021-07-17 18:49] LABS: Troponin I 0.055 ng/mL (0.000-0.034)
[2021-07-17] MEDS: ACETAMINOPHEN 500 MG TABLET PO (23:56)
[2021-07-17] MEDS: carvediloL 25 MG TABLET PO (23:57)
[2021-07-17] MEDS: ATORVASTATIN 40 MG TABLET PO (23:57)
[2021-07-17] MEDS: carvediloL 12.5 MG TABLET PO (23:58)
[2021-07-17] MEDS: LORATADINE 10 MG TABLET PO (23:58)
[2021-07-17] MEDS: APIXABAN 2.5 MG TABLET PO (23:58)
[2021-07-17] MEDS: DOXEPIN HCL 25 MG CAPSULE PO (23:58)
[2021-07-17] MEDS: TAMSULOSIN HCL 0.4 MG CAPSULE 0.8 MG PO (23:59)
[2021-07-17] MEDS: MELATONIN 5 MG TABLET PO (23:59)
[2021-07-18] VITALS (16 sets, daily range): BP systolic 131–147; BP diastolic 73–87; PULSE 78–128; RESP 14–20; TEMP 36–36.9; O2SAT 93–100
[2021-07-18 00:36] LABS: Add Urine Microscopic? YES; Appearance Urine Cloudy (Clear); Bacteria Urine Trace /hpf; Bilirubin Urine Negative (Negative); Blood Urine 3+ (Negative); Calcium Oxalate Crystals Urine Present /hpf; Color Urine Yellow (Yellow); Glucose Urine UA Negative (Negative); Ketones Urine Negative (Negative); Leukocyte Esterase Ur 3+ LEU/UL (Negative); Mucus Urine Rare /lpf; Nitrate Urine Negative (Negative); Protein Urine 2+ mg/dL (Negative); RBC Urine >75 /hpf (0-2); Specific Grav Ur 1.014 (1.001-1.035); Urobilinogen Urine Negative mg/dL (<2.0); WBC Urine >75 /hpf
[2021-07-18] MEDS: CEPHALEXIN 500 MG CAPSULE PO ×3 (06:00→20:33)
[2021-07-18] MEDS: CENTRAL LINE FLUSH 10 ML IV PUSH ×4 (06:00→20:34)
[2021-07-18 06:17] LABS: Hematocrit 27.6 % (42.0-52.0); Hemoglobin 8.4 g/dL (14.0-18.0); Mean Corpuscular HGB Conc 30.4 g/dl (32-36); Mean Corpuscular Hemoglobin 29.5 pg (26-34); Mean Corpuscular Volume 96.8 fl (80-100); Mean Platelet Volume 9.6 fl (7.4-10.4); Platelet Count Result 260 k/mm3 (150-375); Red Blood Count 2.85 M/mm3 (4.6-6.20); Red Cell Distribution Width 15.9 % (11.5-14.5); White Blood Count 8.2 K/mm3 (4.5-10.0)
[2021-07-18 06:27] LABS: Anion Gap 0 mmol/L (8-16); Blood Urea Nitrogen 18 mg/dL (9-20); Calcium 8.4 mg/dL (8.4-10.2); Carbon Dioxide 39 mmol/L (22-30); Chloride 99 mmol/L (98-107); Estimated CRCL calculation 41 ml/min; Estimated Glomerular Filt Rate 40; Glucose 97 mg/dL (65-110); Magnesium 1.2 mg/dL (1.6-2.3); Potassium 3.8 mmol/L (3.4-5.0); Sodium 138 mmol/L (137-145)
[2021-07-18] MEDS: traMADol HCL (*CRX) 50 MG TABLET PO ×3 (07:46→20:47)
[2021-07-18] MEDS: ACETAMINOPHEN 500 MG TABLET 1000 MG PO ×3 (07:57→20:47)
[2021-07-18] MEDS: POTASSIUM CHLORIDE 10 MEQ TABLET.ER PO (08:00)
[2021-07-18] MEDS: APIXABAN 2.5 MG TABLET PO ×2 (08:01→17:24)
[2021-07-18] MEDS: carvediloL 25 MG TABLET PO ×2 (08:01→20:32)
[2021-07-18] MEDS: UMECLIDINIUM BROMIDE 62.5 MCG ELLIPTA 1 PUFF INHALATION (08:01)
[2021-07-18] MEDS: carvediloL 12.5 MG TABLET PO ×2 (08:02→20:32)
[2021-07-18] MEDS: CLOPIDOGREL BISULFATE 75 MG TABLET PO (08:02)
[2021-07-18] MEDS: MULTIVITAMINS THERAPEUTIC TAB (*BKC) 1 TABLET PO (08:03)
[2021-07-18] MEDS: guaiFENesin 12 HR 600 MG TABCR PO ×2 (08:03→20:33)
[2021-07-18] MEDS: FUROSEMIDE INJ 40 MG/4 ML VIAL IV PUSH ×3 (08:03→17:24)
[2021-07-18] MEDS: PANTOPRAZOLE 40 MG TABLET PO (08:04)
[2021-07-18] MEDS: TRIAMCINOLONE ACET 0.1% OINT 15 GM TUBE 1 APPLIC TOPICAL (08:04)
--- NOTE | 2021-07-18 08:41 | PM.IMPN ---
Progress Note: A&P Assessment and Plan (1) Shortness of breath: Code(s): R06.02 - Shortness of breath Status: Acute Assessment and Plan: Likely 2/2 to volume overload. -1.4L yesterday and still on at least 4L NC. Uses 2L at night for ANDRZEJ and only uses oxygen during the day after exertion. -Furosemide 40 mg IV BID -Gave a dose of furosemide 40 IV x1 -Replete lytes -BMP, Mg, Phos 1600 (2) Tachycardia: Code(s): R00.0 - Tachycardia, unspecified Status: Acute Assessment and Plan: Likely 2/2 to his underlying smouldering infection w/ he empyema. -Continue keflex (3) COPD with emphysema: Code(s): J43.9 - Emphysema, unspecified Status: Acute Assessment and Plan: Take cephalexin 500 mg q8h at home. -Continue cephalxin -Continue home inhalers (4) Chronic kidney disease, stage 3: Code(s): N18.30 - Chronic kidney disease, stage 3 unspecified Status: Acute Assessment and Plan: Appears stable. (5) Hypertension: Qualifiers: Hypertension type: primary hypertension Qualified Code(s): I10 - Essential (primary) hypertension Code(s): I10 - Essential (primary) hypertension Status: Chronic Assessment and Plan: Continue home medications. (6) GERD (gastroesophageal reflux disease): Code(s): K21.9 - Gastro-esophageal reflux disease without esophagitis Status: Acute Assessment and Plan: Takes omeprazole 20 mg daily at home -Continue protonix (7) Anemia: Qualifiers: Anemia type: other cause Other causes of anemia: chronic disease, other Qualified Code(s): D63.8 - Anemia in other chronic diseases classified elsewhere Code(s): D64.9 - Anemia, unspecified Status: Acute Assessment and Plan: Check iron studies and vitamin b12 and folate. MCV is elevated but this may be due to omeprazole. Subjective Date/time seen: Date of Service 07/18/21 08:41 Patient says his breathing is about the same. Eating and drinking well. Patient would like IR to remove the cather he has on the right side. Review of Systems Respiratory: Respiratory: Reports dyspnea and Reports dyspnea on exertion Exam Narrative: GENERAL: NAD, cooperative HEENT: Normocephalic, atraumatic, anicteric, nares clear, oropharynx moist and clear, poor dentition NECK: Supple CV: Normal S1, S2, RRR, No MRG RESP: CTAB, Normal work of breathing. Abdomen: Soft, non-tender, non-distended, +BS EXTREMITIES: Warm and well perfused, no clubbing, cyanosis, or edema. 1+ edema bilaterally. SKIN: warm, dry and intact. NEURO: Objective Data Vital Signs Vital Signs: Vital Signs - 24 hr 07/17/21 10:11 07/17/21 10:18 07/17/21 11:30 Temperature 97.9 F Pulse Rate 118 H 115 H Respiratory Rate 28 H Blood Pressure 172/110 H Pulse Oximetry 100 07/17/21 11:34 07/17/21 11:49 07/17/21 11:54 Temperature Pulse Rate 115 H 108 H 111 H Respiratory Rate 28 H 18 20 Blood Pressure 152/88 H Pulse Oximetry 99 07/17/21 12:35 07/17/21 14:11 07/17/21 16:19 Temperature 98.9 F Pulse Rate 110 H 128 H Respiratory Rate 19 23 H Blood Pressure 168/109 H 158/102 H Pulse Oximetry 97 100 07/17/21 17:25 07/17/21 17:50 07/17/21 18:00 Temperature 96.9 F L Pulse Rate 122 H 130 H 125 H Respiratory Rate 26 H 26 H Blood Pressure 155/103 H 128/97 H Pulse Oximetry 99 100 07/17/21 20:00 07/17/21 20:35 07/17/21 22:00 Temperature 97.5 F L Pulse Rate 109 H 122 H Respiratory Rate 18 Blood Pressure 135/91 H Pulse Oximetry 99 98 07/17/21 23:30 07/17/21 23:57 07/17/21 23:58 Temperature 97.5 F L Pulse Rate 126 H 127 H 127 H Respiratory Rate 24 H Blood Pressure 148/89 H Pulse Oximetry 100 07/18/21 00:00 07/18/21 02:00 07/18/21 04:00 Temperature 96.8 F L Pulse Rate 128 H 90 90 Respiratory Rate 20 Blood Pressure 147/78 H Pulse Oximetry 100 100 07/18/21 06:0
--- NOTE | 2021-07-18 13:40 | PM.CNCAR ---
Assessment and Plan Additional Plan acute on chronic diastolic heart failure, Hx of pacemaker, COPD and pneumonia, plan lasix 40 mg IV BID, get medical medical records, cont coreg History of Present Illness History of Present Illness Consult date/time: 07/18/21 13:40 Reason For Visit: SOB/elevated troponin Narrative: Patient presented for evaluation of SOB, severe present with mild activity, associated with LE swelling, and orthopnea, He had hX of COPD and pneumonia in May with left side plerual effusion. He had no chest pain or palpitations. Today he feels better Review of Systems Review of Systems: All systems reviewed & are unremarkable except as noted in HPI and below PMFSH Past Medical History Medical History (Updated 07/17/21 @ 23:06 by Na De Santiago PA-C) Anemia Arthritis AV block Status post [employer] pacemaker placement. Benign prostatic hyperplasia Chronic anemia Chronic kidney disease, stage 3 COPD with emphysema COVID-19 (04/2020) Eczema Empyema of left pleural space (05/2021) Pleural fluid grew out strep intermedius in staph hominis. Status post thoracotomy with decortication. Gastroesophageal reflux disease Hypertension Obstructive sleep apnea On 2 L nasal cannula at nighttime. Peripheral vascular disease Status post right carotid endarterectomy. Status post left lower extremity stent. Psoriasis Urinary retention Surgical History Surgical History (Updated 07/17/21 @ 22:48 by Na De Santiago PA-C) History of herniorrhaphy History of hip replacement Bilaterally with revision History of right-sided carotid endarterectomy History of thoracotomy (05/2021) Left thoracotomy with decortication for empyema. History of tonsillectomy Status post peripheral artery angioplasty with insertion of stent Left lower extremity. Status post placement of cardiac pacemaker (06/2020) Family History Family History Father Hypertension Heart disease Cerebrovascular accident Mother Asthma Diabetes mellitus Hypertension Sibling Hypertension Social History Social History (Updated 07/17/21 @ 22:50 by Na De Santiago PA-C) Social History: The patient currently lives in [place] with his sister. He is and has 3 children and moved to the area from [place], [place] within the last year. 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 Former smoker, quit in 2009. No alcohol or illicit substance abuse. He designates his sister Michelle is his surrogate decision maker and he wishes to be a full code. Meds Home Medications and Allergies Home Medications Medication Instructions Recorded Confirmed Type albuterol sulfate 2.5 mg INHALATION Q4-6H PRN 03/03/21 07/17/21 History albuterol sulfate 90 mcg/actuation 1 puff INHALATION Q4H PRN 03/03/21 07/17/21 History aerosol inhaler apixaban 2.5 mg tablet 2.5 mg PO BID 03/03/21 07/17/21 History atorvastatin 40 mg tablet 40 mg PO QHS 03/03/21 07/17/21 History carvedilol 25 mg tablet 12.5 mg PO BID tablet 03/03/21 07/17/21 History cetirizine 10 mg tablet 10 mg PO HS 03/03/21 07/17/21 History clopidogrel 75 mg tablet 75 mg PO DAILY 03/03/21 07/17/21 History gabapentin 300 mg capsule 300 mg PO DAILY PRN 03/03/21 07/17/21 History omeprazole 20 mg capsule,delayed 20 mg PO DAILY 03/03/21 07/17/21 History release tiotropium bromide 2.5 2 puff INHALATION DAILY 03/03/21 07/17/21 History mcg/actuation mist for inhalation tramadol 50 mg tablet 50 mg PO Q6H PRN 03/03/21 07/17/21 History triamcinolone acetonide 0.05 % 1 applic TOPICAL DAILY 03/03/21 07/17/21 History topical ointment doxepin 25 mg capsule 25 mg PO QHS #90 cap 03/10/21 07/17/21 Rx acetaminophen 500 mg PO Q6H PRN 06/02/21 07/17/21 History carvedilol 25 mg PO BID 06/02/21 07/17/21 History prednisone 40 mg PO DAILY 06/02/21 07/17/21 History dupilumab 300 mg/2 mL subcutaneous 300 mg SUBCUT .COMPLEX #4 ml 06/09/21 07/17/21 Rx syringe furos
[2021-07-18] MEDS: ONDANSETRON HCL ODT 4 MG TABLET PO (15:12)
[2021-07-18] MEDS: POTASSIUM CHLORIDE 20 MEQ PACKET (FOR LIQUID) 40 MEQ PO (15:13)
[2021-07-18] MEDS: MAGNESIUM SULF 2 GM/WATER 50ML 2 GM/50 ML BAG IVPB (15:15)
[2021-07-18 17:00] LABS: Blood Urea Nitrogen 20 mg/dL (9-20); Calcium 8.3 mg/dL (8.4-10.2); Carbon Dioxide > 40 mmol/L (22-30); Chloride 96 mmol/L (98-107); Estimated CRCL calculation 39 ml/min; Estimated Glomerular Filt Rate 38; Glucose 96 mg/dL (65-110); Magnesium 1.7 mg/dL (1.6-2.3); Phosphorus 4.6 mg/dL (2.5-4.5); Potassium 4.9 mmol/L (3.4-5.0); Sodium 136 mmol/L (137-145)
[2021-07-18] MEDS: TAMSULOSIN HCL 0.4 MG CAPSULE 0.8 MG PO (17:24)
[2021-07-18] MEDS: MAGNESIUM SULF 1 GM/D5W 100 ML 1 GM/100 ML BAG IVPB (20:31)
[2021-07-18] MEDS: ATORVASTATIN 40 MG TABLET PO (20:31)
[2021-07-18] MEDS: DOXEPIN HCL 25 MG CAPSULE PO (20:32)
[2021-07-18] MEDS: GABAPENTIN 300 MG CAPSULE PO ×2 (20:33)
[2021-07-18] MEDS: MELATONIN 5 MG TABLET PO (20:33)
[2021-07-18] MEDS: LORATADINE 10 MG TABLET PO (20:33)
[2021-07-19] VITALS (17 sets, daily range): BP systolic 89–147; BP diastolic 47–83; PULSE 72–105; RESP 16–20; TEMP 36.3–36.7; O2SAT 93–100
[2021-07-19] MEDS: CENTRAL LINE FLUSH 10 ML IV PUSH ×4 (05:23→22:18)
[2021-07-19] MEDS: CEPHALEXIN 500 MG CAPSULE PO ×3 (05:23→21:11)
[2021-07-19 05:55] LABS: Basophils Percent Auto 0.6 % (0.2-1.2); Eosinophils Absolute Auto 0.3 K/mm3 (0-0.3); Eosinophils Percent Auto 4.6 % (0-4.4); Hematocrit 27.9 % (42.0-52.0); Hemoglobin 8.5 g/dL (14.0-18.0); Immature Granulocyte Absolute 0.03 K/mm3 (0.00-0.031); Immature Granulocyte Percent A 0.4 % (0-0.5); Lymphocytes Absolute Auto 0.97 K/mm3 (0.9-3.2); Lymphocytes Percent Auto 13.6 % (18.3-44.2); Mean Corpuscular HGB Conc 30.5 g/dl (32-36); Mean Corpuscular Hemoglobin 28.7 pg (26-34); Mean Corpuscular Volume 94.3 fl (80-100); Mean Platelet Volume 9.6 fl (7.4-10.4); Monocytes Absolute Auto 0.6 K/mm3 (0.1-0.6); Neutrophils Absolute Auto 5.1 K/mm3 (1.3-6.7); Neutrophils Percent Auto 71.8 % (45.5-73.1); Platelet Count Result 259 k/mm3 (150-375); Red Blood Count 2.96 M/mm3 (4.6-6.20); Red Cell Distribution Width 15.7 % (11.5-14.5); White Blood Count 7.1 K/mm3 (4.5-10.0)
[2021-07-19 06:21] LABS: Blood Urea Nitrogen 19 mg/dL (9-20); Calcium 8.2 mg/dL (8.4-10.2); Carbon Dioxide > 40 mmol/L (22-30); Chloride 94 mmol/L (98-107); Estimated CRCL calculation 39 ml/min; Estimated Glomerular Filt Rate 38; Glucose 90 mg/dL (65-110); Magnesium 1.6 mg/dL (1.6-2.3); Potassium 3.7 mmol/L (3.4-5.0); Sodium 135 mmol/L (137-145)
--- NOTE | 2021-07-19 07:53 | PM.IMPN ---
Progress Note: A&P Assessment and Plan (1) Shortness of breath: Code(s): R06.02 - Shortness of breath Status: Acute Assessment and Plan: Likely 2/2 to volume overload. -3.1L yesterday and down to 3LNC Uses 2L at night for ANDRZEJ and only uses oxygen during the day after exertion. -Continue Furosemide 40 mg IV BID -Replete lytes -BMP, Mg, Phos 1600 (2) Tachycardia: Code(s): R00.0 - Tachycardia, unspecified Status: Acute Assessment and Plan: Likely 2/2 to his underlying smouldering infection w/ he empyema. -Continue keflex (3) COPD with emphysema: Code(s): J43.9 - Emphysema, unspecified Status: Acute Assessment and Plan: Take cephalexin 500 mg q8h at home. -Continue cephalxin -Continue home inhalers (4) Chronic kidney disease, stage 3: Code(s): N18.30 - Chronic kidney disease, stage 3 unspecified Status: Acute Assessment and Plan: Appears stable. (5) Hypertension: Qualifiers: Hypertension type: primary hypertension Qualified Code(s): I10 - Essential (primary) hypertension Code(s): I10 - Essential (primary) hypertension Status: Chronic Assessment and Plan: Continue home medications. (6) GERD (gastroesophageal reflux disease): Code(s): K21.9 - Gastro-esophageal reflux disease without esophagitis Status: Acute Assessment and Plan: Takes omeprazole 20 mg daily at home -Continue protonix (7) Anemia: Qualifiers: Anemia type: other cause Other causes of anemia: chronic disease, other Qualified Code(s): D63.8 - Anemia in other chronic diseases classified elsewhere Code(s): D64.9 - Anemia, unspecified Status: Acute Assessment and Plan: Check iron studies and vitamin b12 and folate. MCV is elevated but this may be due to omeprazole. Subjective Date/time seen: Date of Service 07/19/21 07:53 Patient says his thighs and lower extremities still have swelling. He does feel like his breathing is improving and thinks he needs a few more days. Review of Systems Respiratory: Respiratory: Reports dyspnea Exam Narrative: GENERAL: NAD, cooperative HEENT: Normocephalic, atraumatic, anicteric, nares clear, oropharynx moist and clear, poor dentition NECK: Supple CV: Normal S1, S2, RRR, No MRG RESP: CTAB, Normal work of breathing. Abdomen: Soft, non-tender, non-distended, +BS EXTREMITIES: Warm and well perfused, no clubbing, cyanosis, Edema to bilateral LE and feet. SKIN: warm, dry and intact. NEURO: CN 2-12 grossly intact. Objective Data Vital Signs Vital Signs: Vital Signs - 24 hr 07/18/21 08:00 07/18/21 08:01 07/18/21 08:02 Temperature Pulse Rate 97 108 H 108 H Respiratory Rate Blood Pressure Pulse Oximetry 100 07/18/21 09:44 07/18/21 10:00 07/18/21 12:00 Temperature 98.4 F Pulse Rate 97 81 Respiratory Rate 14 Blood Pressure 131/73 Pulse Oximetry 93 100 07/18/21 14:00 07/18/21 16:00 07/18/21 18:00 Temperature 98.1 F Pulse Rate 81 78 105 H Respiratory Rate 16 Blood Pressure 137/87 Pulse Oximetry 98 07/18/21 20:00 07/18/21 20:32 07/18/21 22:00 Temperature 96.8 F L Pulse Rate 84 91 80 Respiratory Rate 18 Blood Pressure 132/75 Pulse Oximetry 100 07/19/21 00:00 07/19/21 02:00 07/19/21 04:00 Temperature 97.3 F L 97.6 F Pulse Rate 72 79 83 Respiratory Rate 18 20 Blood Pressure 89/47 L 125/66 Pulse Oximetry 99 97 07/19/21 06:00 Temperature Pulse Rate 95 Respiratory Rate Blood Pressure Pulse Oximetry Intake/Output Intake/Output: Intake & Output 07/16/21 07/17/21 07/18/21 07/19/21 23:59 23:59 23:59 23:59 Intake Total 850 1000 Output Total 1500 4500 1400 Balance -1500 -7320 -400 Meds/Results Medications: Active Medications Generic Name Dose Route Start Last Admin Trade Name Freq PRN Reason Stop Dose Admin Acetaminophen 1,000 mg 07/18/21
[2021-07-19] MEDS: PANTOPRAZOLE 40 MG TABLET PO (08:23)
[2021-07-19] MEDS: guaiFENesin 12 HR 600 MG TABCR PO ×2 (08:23→21:11)
[2021-07-19] MEDS: CLOPIDOGREL BISULFATE 75 MG TABLET PO (08:24)
[2021-07-19] MEDS: MULTIVITAMINS THERAPEUTIC TAB (*BKC) 1 TABLET PO (08:24)
[2021-07-19] MEDS: carvediloL 25 MG TABLET PO ×2 (08:25→21:12)
[2021-07-19] MEDS: POTASSIUM CHLORIDE 10 MEQ TABLET.ER PO (08:25)
[2021-07-19] MEDS: carvediloL 12.5 MG TABLET PO ×2 (08:25→21:12)
[2021-07-19] MEDS: APIXABAN 2.5 MG TABLET PO ×2 (08:25→16:17)
[2021-07-19] MEDS: POTASSIUM CHLORIDE 20 MEQ TABLET 40 MEQ PO (08:26)
[2021-07-19] MEDS: TRIAMCINOLONE ACET 0.1% OINT 15 GM TUBE 1 APPLIC TOPICAL (08:26)
[2021-07-19] MEDS: FUROSEMIDE INJ 40 MG/4 ML VIAL IV PUSH ×2 (08:26→16:19)
[2021-07-19] MEDS: ACETAMINOPHEN 500 MG TABLET 1000 MG PO ×3 (08:27→22:18)
[2021-07-19] MEDS: traMADol HCL (*CRX) 50 MG TABLET PO ×3 (08:28→22:17)
[2021-07-19] MEDS: UMECLIDINIUM BROMIDE 62.5 MCG ELLIPTA 1 PUFF INHALATION (08:37)
[2021-07-19] MEDS: MAGNESIUM SULF 1 GM/D5W 100 ML 1 GM/100 ML BAG IVPB (08:38)
--- NOTE | 2021-07-19 12:05 | PM.PNCARD ---
Progress Note: A&P Additional Plan acute on chronic diastolic heart failure, Hx of pacemaker, COPD and pneumonia, plan lasix 40 mg IV BID, get medical medical records, cont coreg Subjective Date/time seen: 07/19/21 12:05 Interval history: no acute events A sensed V paced Review of Systems Review of Systems: All systems reviewed & are unremarkable except as noted in HPI and below Exam Const: General: comfortable and no acute distress Other: Able to lie flat HENMT: General nose exam: Normal nares present and no epistaxis Mouth: Yes moist mucous membranes Eyes: Sclera: sclerae normal Pupils: Equal, round and reactive pupils present Neck: Neck: supple and no JVD Carotids: no bruits Resp: Auscultation: clear to auscultation bilaterally and lung sounds not diminished Other: No chest wall tenderness Cardio: Rate: regular rate Rhythm: regular rhythm Heart sounds: no gallops, no murmurs and no rubs GI: Auscultation: normal bowel sounds Skin: General skin exam: normal color, rashes and/or lesions noted and no erythema Other: Warm Neuro: Cranial nerves: Yes Equal, round and reactive pupils present Speech: normal speech Other: No obvious focal deficit or facial asymmetry Extrem: General: edema bilateral Other: Normal capillary refills Intact distal pulses. Objective Data Vital Signs Vital Signs: Vital Signs - 24 hr 07/18/21 14:00 07/18/21 16:00 07/18/21 18:00 Temperature 36.7 C Pulse Rate 81 78 105 H Respiratory Rate 16 Blood Pressure 137/87 Pulse Oximetry 98 07/18/21 20:00 07/18/21 20:32 07/18/21 22:00 Temperature 36.0 C L Pulse Rate 84 91 80 Respiratory Rate 18 Blood Pressure 132/75 Pulse Oximetry 100 07/19/21 00:00 07/19/21 02:00 07/19/21 04:00 Temperature 36.3 C L 36.4 C Pulse Rate 72 79 83 Respiratory Rate 18 20 Blood Pressure 89/47 L 125/66 Pulse Oximetry 99 97 07/19/21 06:00 07/19/21 08:00 07/19/21 08:25 Temperature 36.6 C Pulse Rate 95 100 105 H Respiratory Rate 16 Blood Pressure 147/80 H Pulse Oximetry 93 07/19/21 08:39 07/19/21 10:00 07/19/21 11:53 Temperature 36.7 C Pulse Rate 72 79 Respiratory Rate 16 Blood Pressure 112/69 Pulse Oximetry 93 100 Intake/Output Intake/Output: Intake & Output 07/16/21 07/17/21 07/18/21 07/19/21 23:59 23:59 23:59 23:59 Intake Total 850 1000 Output Total 1500 4500 1400 Balance -1500 -3650 -400 Meds/Results Medications: Active Medications Generic Name Dose Route Start Last Admin Trade Name Frenessa PRN Reason Stop Dose Admin Acetaminophen 1,000 mg 07/18/21 01:07 07/19/21 08:27 Acetaminophen 500 Mg Tablet PO 1,000 mg Q6H PRN Administration Pain Rated 1-3 Albuterol 2.5 mg 07/17/21 22:56 Albuterol Sulfate Neb 2.5 Mg/3 Ml Inh INHALATION Q4-6H PRN Shortness Of Breath Apixaban 2.5 mg 07/17/21 23:10 07/19/21 08:25 Apixaban 2.5 Mg Tablet PO 2.5 mg BID JUSTIN Administration Atorvastatin Calcium 40 mg 07/17/21 23:00 07/18/21 20:31 Atorvastatin 40 Mg Tablet PO 40 mg HS JUSTIN Administration Carvedilol 25 mg 07/17/21 23:00 07/19/21 08:25 Carvedilol 25 Mg Tablet PO 25 mg Q12HR JUSTIN Administration Carvedilol 12.5 mg 07/17/21 23:10 07/19/21 08:25 Carvedilol 12.5 Mg Tablet PO 12.5 mg Q12HR JUSTIN Administration Cephalexin HCl 500 mg 07/18/21 06:00 07/19/21 05:23 Cephalexin 500 Mg Capsule PO 500 mg Q8HR JUSTIN Administration Clopidogrel Bisulfate 75 mg 07/18/21 09:00 07/19/21 08:24 Clopidogrel Bisulfate 75 Mg Tablet PO 75 mg DAILY JUSTIN Administration Doxepin HCl 25 mg 07/17/21 23:00 07/18/21 20:32 Doxepin Hcl 25 Mg Capsule PO 25 mg HS JUSTIN Administration Furosemide 40 mg 07/17/21 23:20 07/19/21 08:26 Furosemide Inj 40 Mg/4 Ml Vial IV PUSH 40 mg BID JUSTIN Administration Gabapentin 300 mg 07/18/21 21:00 07/18/21 20:33 Gabapentin 300 Mg Capsule PO 300 mg HS JUSTIN Adm
[2021-07-19] MEDS: TAMSULOSIN HCL 0.4 MG CAPSULE 0.8 MG PO (17:24)
[2021-07-19 18:43] LABS: Blood Urea Nitrogen 22 mg/dL (9-20); Calcium 8.4 mg/dL (8.4-10.2); Carbon Dioxide > 40 mmol/L (22-30); Chloride 93 mmol/L (98-107); Estimated CRCL calculation 32 ml/min; Estimated Glomerular Filt Rate 30; Glucose 117 mg/dL (65-110); Magnesium 1.7 mg/dL (1.6-2.3); Phosphorus 4.1 mg/dL (2.5-4.5); Potassium 4.4 mmol/L (3.4-5.0); Sodium 134 mmol/L (137-145)
--- NOTE | 2021-07-19 18:46 | PM.EVENT ---
Event Note Event Note Event Note: Urine culture notes chava albicans. Patient endorses burning sensation. Patient has a chronic indwelling catheter that was placed at another facility. As this patient endorses symptoms, will treat with fluconazole 200 mg po 14 days. Patient has a pacemaker.
[2021-07-19] MEDS: DOXEPIN HCL 25 MG CAPSULE PO (21:11)
[2021-07-19] MEDS: LORATADINE 10 MG TABLET PO (21:11)
[2021-07-19] MEDS: ATORVASTATIN 40 MG TABLET PO (21:11)
[2021-07-19] MEDS: FLUCONAZOLE 100 MG TABLET 200 MG PO (21:11)
[2021-07-19] MEDS: MELATONIN 5 MG TABLET PO (21:12)
[2021-07-19] MEDS: GABAPENTIN 300 MG CAPSULE PO (21:12)
[2021-07-20] VITALS (17 sets, daily range): BP systolic 109–131; BP diastolic 53–79; PULSE 78–106; RESP 18–24; TEMP 36.4–37.3; O2SAT 96–100
[2021-07-20] MEDS: CENTRAL LINE FLUSH 10 ML IV PUSH ×4 (05:00→21:22)
[2021-07-20] MEDS: ACETAMINOPHEN 500 MG TABLET 1000 MG PO ×2 (05:00→11:08)
[2021-07-20] MEDS: CEPHALEXIN 500 MG CAPSULE PO ×3 (05:00→21:21)
[2021-07-20] MEDS: traMADol HCL (*CRX) 50 MG TABLET PO ×3 (05:01→23:13)
[2021-07-20 05:53] LABS: Iron 28 ug/dL (49-181)
[2021-07-20 05:56] LABS: Anion Gap 2 mmol/L (8-16); Blood Urea Nitrogen 22 mg/dL (9-20); Carbon Dioxide 38 mmol/L (22-30); Chloride 90 mmol/L (98-107); Estimated CRCL calculation 35 ml/min; Estimated Glomerular Filt Rate 33; Glucose 89 mg/dL (65-110); Potassium 4.1 mmol/L (3.4-5.0); Sodium 130 mmol/L (137-145)
[2021-07-20 06:03] LABS: Percent Iron Saturation 19 % (20-50)
--- NOTE | 2021-07-20 08:35 | PM.IMPN ---
Progress Note: A&P Assessment and Plan (1) Shortness of breath: Code(s): R06.02 - Shortness of breath Status: Acute Assessment and Plan: Likely 2/2 to volume overload. -2.3L negative yesterday and on 2LNC this morning. Uses 2L at night for ANDRZEJ and only uses oxygen during the day after exertion. Persistent oxygen requirement despite being euvolemic. No echo on file -Patient may benefit from an echo -Appreciate recs from Cardiology -Plan for discharge tomorrow -OT recommends skilled OT at discharge -PT recommends skilled PT at discharge (2) Monie UTI: Code(s): B37.49 - Other urogenital candidiasis Status: Acute Assessment and Plan: Candidia albicans isolated on urine from the kumari. Patient also endorsed a burning sensation. Fluconazole started overnight. Patient is paced. -Fluconazole 200 mg po day #2/14 days (3) Tachycardia: Code(s): R00.0 - Tachycardia, unspecified Status: Acute Assessment and Plan: Likely 2/2 to his underlying smouldering infection w/ he empyema versus the monie UTI. -Continue keflex (4) COPD with emphysema: Code(s): J43.9 - Emphysema, unspecified Status: Acute Assessment and Plan: Take cephalexin 500 mg q8h at home. -Continue cephalxin -Continue home inhalers (5) Chronic kidney disease, stage 3: Code(s): N18.30 - Chronic kidney disease, stage 3 unspecified Status: Acute Assessment and Plan: Creatinine increased to 2.00. No diuresis today and will monitor. -BMP in AM (6) Hypertension: Qualifiers: Hypertension type: primary hypertension Qualified Code(s): I10 - Essential (primary) hypertension Code(s): I10 - Essential (primary) hypertension Status: Chronic Assessment and Plan: Continue home medications. (7) GERD (gastroesophageal reflux disease): Code(s): K21.9 - Gastro-esophageal reflux disease without esophagitis Status: Acute Assessment and Plan: Takes omeprazole 20 mg daily at home -Continue protonix (8) Anemia: Qualifiers: Anemia type: other cause Other causes of anemia: chronic disease, other Qualified Code(s): D63.8 - Anemia in other chronic diseases classified elsewhere Code(s): D64.9 - Anemia, unspecified Status: Acute Assessment and Plan: All iron labs low except ferritin which is also an acute phase reactant. Vitamin b12 also low. -Ferrous gluconate 324 every other day -Cyanocobalamin 1,000 mcg daily Subjective Date/time seen: Date of Service 07/20/21 08:35 Patient says he has had a kumari since surgery. He says he had a trial in the hospital to remove it and had persistent urinary retention. He subsequently followed up with Urology who did a four hour void trial in the office that the patient failed. The kumari was replaced and tamsulosin increased with the hope he would be able to remove the kumari. The patient's Urology appointment for kumari removal was scheduled for 07/21/21. Patient feels he has had a significant amount of diuresis and no longer has leg swelling. He says he would like to work with physical therapy and reiterates that he previously used 2L NC only at night for his ANDRZEJ. Review of Systems Respiratory: Respiratory: Reports dyspnea Exam Narrative: GENERAL: NAD, cooperative HEENT: Normocephalic, atraumatic, anicteric NECK: Supple CV: Normal S1, S2, RRR, No MRG RESP: CTAB, Normal work of breathing. Abdomen: Soft, non-tender, non-distended, +BS EXTREMITIES: Warm and well perfused, no clubbing, cyanosis. No edema. SKIN: warm, dry and intact. NEURO: CN 2-12 grossly intact. Objective Data Vital Signs Vital Signs: Vital Signs - 24 hr 07/19/21 08:39 07/19/21 10:00 07/19/21 11:53 Temperature 98.1 F Pulse Rate 72 79 Respiratory Rate 16 Blood Pressure 112/69 Pulse Oximetry 93 100 07/19/21 12:00 07/19/21 14:00 07/19/21
[2021-07-20] MEDS: UMECLIDINIUM BROMIDE 62.5 MCG ELLIPTA 1 PUFF INHALATION (09:01)
[2021-07-20] MEDS: POTASSIUM CHLORIDE 10 MEQ TABLET.ER PO (09:44)
[2021-07-20] MEDS: carvediloL 25 MG TABLET PO ×2 (09:44→21:22)
[2021-07-20] MEDS: carvediloL 12.5 MG TABLET PO ×2 (09:44→21:21)
[2021-07-20] MEDS: APIXABAN 2.5 MG TABLET PO ×2 (09:44→16:59)
[2021-07-20] MEDS: CLOPIDOGREL BISULFATE 75 MG TABLET PO (09:44)
[2021-07-20] MEDS: FLUCONAZOLE 100 MG TABLET 200 MG PO (09:45)
[2021-07-20] MEDS: PANTOPRAZOLE 40 MG TABLET PO (09:45)
[2021-07-20] MEDS: CYANOCOBALAMIN 1,000 MCG TABLET 1000 MCG PO (09:45)
[2021-07-20] MEDS: FERROUS GLUCONATE 324 MG TABLET PO (09:45)
[2021-07-20] MEDS: guaiFENesin 12 HR 600 MG TABCR PO ×2 (09:46→21:21)
[2021-07-20] MEDS: MULTIVITAMINS THERAPEUTIC TAB (*BKC) 1 TABLET PO (09:46)
[2021-07-20] MEDS: TRIAMCINOLONE ACET 0.1% OINT 15 GM TUBE 1 APPLIC TOPICAL (09:47)
--- NOTE | 2021-07-20 10:38 | PM.PNCARD ---
Progress Note: A&P Additional Plan 70-year-old man with history of pacemaker implant for reasons that we do not have records to determine about 5 or 6 years ago when he was living in [place]. He recently has become established with Dr. Lay of our practice for ongoing follow-up. Recent admission to the hospital here with significant pneumonia was transferred to [facility] because of some empyema that had to be drained surgically. Still has the indwelling central venous access for ongoing antibiotics. Cardiovascular status appears to be relatively stable at this time. I will check with the office records as to the receipt of records regarding his pacemaker implantation. At the moment he is does not appear to require any ongoing diuresis. He does have a small amount of left pleural fluid that is remaining following drainage of his empyema from the left hemithorax recently. Does not appear to be large enough to affect the mechanics of breathing. Talon Good MD [facility] Subjective Date/time seen: Date of service: 07/20/21 10:38 Interval history: no acute events A sensed V paced Patient describes no cardiovascular complaints this morning. He reports that he was significantly volume overloaded on admission to the hospital over the weekend. He attributes this to a lot of IV fluid that he received in the hospital at [facility] recently for treatment of his empyema. Patient was resting comfortably flat in bed sleeping when I entered the room to see him upon awakening offers no complaints is in no distress at this time. Exam Const: General: comfortable and no acute distress Other: Able to lie flat HENMT: General nose exam: Normal nares present and no epistaxis Mouth: Yes moist mucous membranes Eyes: Sclera: sclerae normal Pupils: Equal, round and reactive pupils present Neck: Neck: supple and no JVD Carotids: no bruits Resp: Auscultation: clear to auscultation bilaterally and lung sounds not diminished Other: No chest wall tenderness Cardio: Rate: regular rate Rhythm: regular rhythm Heart sounds: no gallops, no murmurs and no rubs GI: Auscultation: normal bowel sounds Skin: General skin exam: normal color, rashes and/or lesions noted and no erythema Other: Warm Neuro: Cranial nerves: Yes Equal, round and reactive pupils present Speech: normal speech Other: No obvious focal deficit or facial asymmetry Extrem: General: edema bilateral Other: Normal capillary refills Intact distal pulses. Objective Data Vital Signs Vital Signs: Vital Signs - 24 hr 07/19/21 11:53 07/19/21 12:00 07/19/21 14:00 Temperature 36.7 C Pulse Rate 79 84 95 Respiratory Rate 16 Blood Pressure 112/69 104/65 Pulse Oximetry 100 100 07/19/21 16:00 07/19/21 18:00 07/19/21 20:00 Temperature 36.7 C 36.6 C Pulse Rate 98 101 H 98 Respiratory Rate 20 20 Blood Pressure 144/83 H 127/76 Pulse Oximetry 99 99 07/19/21 21:12 07/19/21 22:00 07/19/21 23:42 Temperature 36.6 C Pulse Rate 102 H 95 83 Respiratory Rate 20 Blood Pressure 96/52 L Pulse Oximetry 98 07/20/21 00:00 07/20/21 02:00 07/20/21 04:00 Temperature 36.6 C Pulse Rate 81 85 80 Respiratory Rate 18 Blood Pressure 109/53 L Pulse Oximetry 99 99 07/20/21 06:00 07/20/21 08:00 07/20/21 09:44 Temperature 36.4 C L Pulse Rate 86 81 105 H Respiratory Rate 20 Blood Pressure 119/71 Pulse Oximetry 99 Intake/Output Intake/Output: Intake & Output 07/17/21 07/18/21 07/19/21 07/20/21 23:59 23:59 23:59 23:59 Intake Total 850 2350 560 Output Total 1500 4500 2800 5887 [place] -5735 -2350 -450 -7640 Meds/Results Medications: Active Medications Generic Name Dose Route Start Last Admin Trade Name Geremias PRN Reason Stop Dose Admin Acetaminophen 1,000 mg 07/18/21 01:07 07/20/21 05:00 Acetaminophen 500 Mg Tablet PO 1,000 mg Q6H PRN Administration Pain Rated 1-3 Albuterol 2.5 mg 07/17/21 22:56 Albuterol Sulfate Neb 2.5 M
[2021-07-20] MEDS: TAMSULOSIN HCL 0.4 MG CAPSULE 0.8 MG PO (16:59)
[2021-07-20] MEDS: LORATADINE 10 MG TABLET PO (21:21)
[2021-07-20] MEDS: ATORVASTATIN 40 MG TABLET PO (21:21)
[2021-07-20] MEDS: ALBUTEROL SULFATE NEB 2.5 MG/3 ML INH INHALATION (22:50)
[2021-07-20] MEDS: MELATONIN 5 MG TABLET PO (23:12)
[2021-07-20] MEDS: GABAPENTIN 300 MG CAPSULE PO (23:12)
[2021-07-20] MEDS: DOXEPIN HCL 25 MG CAPSULE PO (23:12)
[2021-07-21] VITALS (24 sets, daily range): BP systolic 107–123; BP diastolic 52–79; PULSE 82–99; RESP 16–22; TEMP 36.3–36.9; O2SAT 93–100
[2021-07-21 04:24] LABS: Basophils Percent Auto 0.5 % (0.2-1.2); Eosinophils Absolute Auto 0.4 K/mm3 (0-0.3); Eosinophils Percent Auto 4.3 % (0-4.4); Hematocrit 27.3 % (42.0-52.0); Hemoglobin 8.4 g/dL (14.0-18.0); Immature Granulocyte Absolute 0.04 K/mm3 (0.00-0.031); Immature Granulocyte Percent A 0.5 % (0-0.5); Lymphocytes Percent Auto 12.4 % (18.3-44.2); Mean Corpuscular HGB Conc 30.8 g/dl (32-36); Mean Corpuscular Hemoglobin 29.4 pg (26-34); Mean Corpuscular Volume 95.5 fl (80-100); Mean Platelet Volume 8.5 fl (7.4-10.4); Monocytes Absolute Auto 0.7 K/mm3 (0.1-0.6); Monocytes Percent Auto 8.8 % (2.6-8.5); Neutrophils Percent Auto 73.5 % (45.5-73.1); Platelet Count Result 252 k/mm3 (150-375); Red Blood Count 2.86 M/mm3 (4.6-6.20); Red Cell Distribution Width 15.6 % (11.5-14.5); White Blood Count 8.1 K/mm3 (4.5-10.0)
[2021-07-21 04:37] LABS: Anion Gap 1 mmol/L (8-16); Blood Urea Nitrogen 20 mg/dL (9-20); Calcium 8.3 mg/dL (8.4-10.2); Carbon Dioxide 36 mmol/L (22-30); Chloride 93 mmol/L (98-107); Estimated CRCL calculation 37 ml/min; Estimated Glomerular Filt Rate 35; Glucose 98 mg/dL (65-110); Potassium 4.6 mmol/L (3.4-5.0); Sodium 130 mmol/L (137-145)
[2021-07-21] MEDS: CENTRAL LINE FLUSH 10 ML IV PUSH ×3 (06:16→21:17)
[2021-07-21] MEDS: CEPHALEXIN 500 MG CAPSULE PO ×3 (06:16→21:17)
[2021-07-21] MEDS: traMADol HCL (*CRX) 50 MG TABLET PO ×3 (06:20→21:12)
[2021-07-21] MEDS: UMECLIDINIUM BROMIDE 62.5 MCG ELLIPTA 1 PUFF INHALATION (09:17)
[2021-07-21] MEDS: POTASSIUM CHLORIDE 10 MEQ TABLET.ER PO (09:40)
[2021-07-21] MEDS: carvediloL 25 MG TABLET PO ×2 (09:40→21:14)
[2021-07-21] MEDS: ACETAMINOPHEN 500 MG TABLET 1000 MG PO ×2 (09:40→21:13)
[2021-07-21] MEDS: MULTIVITAMINS THERAPEUTIC TAB (*BKC) 1 TABLET PO (09:41)
[2021-07-21] MEDS: APIXABAN 2.5 MG TABLET PO ×2 (09:41→16:42)
[2021-07-21] MEDS: CYANOCOBALAMIN 1,000 MCG TABLET 1000 MCG PO (09:41)
[2021-07-21] MEDS: CLOPIDOGREL BISULFATE 75 MG TABLET PO (09:41)
[2021-07-21] MEDS: FLUCONAZOLE 100 MG TABLET 200 MG PO (09:41)
[2021-07-21] MEDS: guaiFENesin 12 HR 600 MG TABCR PO ×2 (09:41→21:16)
[2021-07-21] MEDS: PANTOPRAZOLE 40 MG TABLET PO (09:41)
[2021-07-21] MEDS: TRIAMCINOLONE ACET 0.1% OINT 15 GM TUBE 1 APPLIC TOPICAL (09:41)
[2021-07-21] MEDS: carvediloL 12.5 MG TABLET PO ×2 (09:41→21:15)
[2021-07-21] MEDS: ALBUTEROL SULFATE NEB 2.5 MG/3 ML INH INHALATION ×2 (10:11→19:53)
--- NOTE | 2021-07-21 11:30 | PM.IMPN ---
Progress Note: A&P Assessment and Plan (1) Shortness of breath: Code(s): R06.02 - Shortness of breath Status: Acute Assessment and Plan: Likely 2/2 to volume overload. -2.3L negative yesterday and on 2LNC this morning. Uses 2L at night for ANDRZEJ and only uses oxygen during the day after exertion. Persistent oxygen requirement despite being euvolemic. No echo on file -Patient may benefit from an echo -Appreciate recs from Cardiology -OT recommends skilled OT at discharge -PT recommends skilled PT at discharge -improved continue current treatment (2) Monie UTI: Code(s): B37.49 - Other urogenital candidiasis Status: Acute Assessment and Plan: Candidia albicans isolated on urine from the kumari. Patient also endorsed a burning sensation. Fluconazole started overnight. Patient is paced. -Fluconazole 200 mg po day #3/14 days (3) Tachycardia: Code(s): R00.0 - Tachycardia, unspecified Status: Acute Assessment and Plan: Likely 2/2 to his underlying smouldering infection w/ he empyema versus the monie UTI. -Continue keflex -will get blood culture today (4) COPD with emphysema: Code(s): J43.9 - Emphysema, unspecified Status: Acute Assessment and Plan: Take cephalexin 500 mg q8h at home. -Continue cephalxin -Continue home inhalers -blood culture from central line (5) Chronic kidney disease, stage 3: Code(s): N18.30 - Chronic kidney disease, stage 3 unspecified Status: Acute Assessment and Plan: Creatinine increased to 2.00. Continue to monitor improved (6) Hypertension: Qualifiers: Hypertension type: primary hypertension Qualified Code(s): I10 - Essential (primary) hypertension Code(s): I10 - Essential (primary) hypertension Status: Chronic Assessment and Plan: Continue home medications. (7) GERD (gastroesophageal reflux disease): Code(s): K21.9 - Gastro-esophageal reflux disease without esophagitis Status: Acute Assessment and Plan: Takes omeprazole 20 mg daily at home -Continue protonix (8) Anemia: Qualifiers: Anemia type: other cause Other causes of anemia: chronic disease, other Qualified Code(s): D63.8 - Anemia in other chronic diseases classified elsewhere Code(s): D64.9 - Anemia, unspecified Status: Acute Assessment and Plan: All iron labs low except ferritin which is also an acute phase reactant. Vitamin b12 also low. -Ferrous gluconate 324 every other day -Cyanocobalamin 1,000 mcg daily (9) Hyponatremia: Code(s): E87.1 - Hypo-osmolality and hyponatremia Status: Acute Assessment and Plan: Acute hyponatremia fluid restriction repeat BMP in a.m. Anticipate discharge in a.m. patient may need rehab Subjective Date/time seen: 07/21/21 11:30 Interval history: Patient seen and examined Patient feels better today he still have generalized weakness is still on oxygen PT and OT evaluation Anticipate discharge probably in the next 24 hours Once hyponatremia improved weakness improved when patient able to be ambulate better Patient denies fever headache chest pain I am seeing the patient for hyponatremia Exam Narrative: Alert Chest decreased air entry bilateral Abdomen nontender nondistended CVS S1 + S2 Lower extremity minimal edema Objective Data Vital Signs Vital Signs: Vital Signs - 24 hr 07/20/21 12:00 07/20/21 14:00 07/20/21 16:00 Temperature 97.7 F 99.1 F Pulse Rate 94 94 95 Respiratory Rate 22 H 20 Blood Pressure 110/74 131/79 Pulse Oximetry 100 97 07/20/21 18:00 07/20/21 20:00 07/20/21 21:21 Temperature 97.7 F Pulse Rate 82 90 105 H Respiratory Rate 20 Blood Pressure 131/79 Pulse Oximetry 97 07/20/21 21:22 07/20/21 22:00 07/20/21 22:33 Temperature Pulse Rate 105 H 106 H Respiratory Rate Blood Pressure Pulse Oximetry 96 06/23
--- NOTE | 2021-07-21 11:40 | PM.PNCARD ---
Progress Note: A&P Assessment and Plan (1) Elevated troponin: Code(s): R77.8 - Other specified abnormalities of plasma proteins Status: Acute Assessment and Plan: Likely non ACS in the setting of respiratory failure and CHF. Continue antiplatelet treatment. (2) Diastolic CHF: Code(s): I50.30 - Unspecified diastolic (congestive) heart failure Status: Acute Assessment and Plan: Patient's symptoms of shortness of breath are predominantly from underlying COPD/emphysema and recent infection. May use diuresis as needed. No significant volume overload at present on physical examination. Check NTproBNP. (3) Respiratory failure: Code(s): J96.90 - Respiratory failure, unspecified, unspecified whether with hypoxia or hypercapnia Status: Acute Assessment and Plan: Management as per primary team and pulmonology. Subjective Date/time seen: 07/21/21 11:40 Date of service: 07/21/2021 Interval history: Patient reports minimal improvement in his shortness of breath. Denies chest pain. On telemetry, he is in ventricular paced rhythm with heart rates in 100s. Exam Narrative: PHYSICAL EXAMINATION: GENERAL: Alert, oriented, no acute distress; on supplemental oxygen MENTAL STATUS: affect appropriate to mood EYES: Extraocular movements intact, no pallor EARS: External ears appear normal, hearing grossly normal NOSE: Normal and patent, no discharge MOUTH: Mucous membranes moist, tongue normal NECK: Supple, no JVD CHEST: Severely diminished breath sounds HEART: Tachycardia, regular/paced rhythm ABDOMEN: Soft, nontender NEUROLOGICAL: Alert, oriented, normal speech, no gross motor deficits MUSCULOSKELETAL: No major deformity, no amputation EXTREMITIES: No pedal edema, no clubbing, no cyanosis SKIN: no rash on the exposed area, no cyanosis PSYCHIATRIC: Normal mood, appropriate affect Objective Data Vital Signs Vital Signs: Vital Signs - 24 hr 07/20/21 12:00 07/20/21 14:00 07/20/21 16:00 Temperature 36.5 C 37.3 C Pulse Rate 94 94 95 Respiratory Rate 22 H 20 Blood Pressure 110/74 131/79 Pulse Oximetry 100 97 07/20/21 18:00 07/20/21 20:00 07/20/21 21:21 Temperature 36.5 C Pulse Rate 82 90 105 H Respiratory Rate 20 Blood Pressure 131/79 Pulse Oximetry 97 07/20/21 21:22 07/20/21 22:00 07/20/21 22:33 Temperature Pulse Rate 105 H 106 H Respiratory Rate Blood Pressure Pulse Oximetry 96 07/20/21 22:50 07/21/21 00:00 07/21/21 02:00 Temperature 36.4 C Pulse Rate 98 93 85 Respiratory Rate 24 H 18 Blood Pressure 107/52 L Pulse Oximetry 96 07/21/21 04:00 07/21/21 06:00 07/21/21 08:00 Temperature 36.8 C Pulse Rate 82 86 85 Respiratory Rate 20 Blood Pressure 123/71 Pulse Oximetry 99 93 07/21/21 08:56 07/21/21 09:18 07/21/21 09:40 Temperature 36.9 C Pulse Rate 89 89 Respiratory Rate 16 Blood Pressure 123/74 Pulse Oximetry 99 93 07/21/21 09:41 07/21/21 10:00 Temperature Pulse Rate 89 85 Respiratory Rate Blood Pressure Pulse Oximetry Intake/Output Intake/Output: Intake & Output 07/18/21 07/19/21 07/20/21 07/21/21 23:59 23:59 23:59 23:59 Intake Total 850 2350 830 540 Output Total 4500 2800 3200 750 Balance -3650 -450 -2370 -210 Meds/Results Medications: Active Medications Generic Name Dose Route Start Last Admin Trade Name Geremias PRN Reason Stop Dose Admin Acetaminophen 1,000 mg 07/18/21 01:07 07/21/21 09:40 Acetaminophen 500 Mg Tablet PO 1,000 mg Q6H PRN Administration Pain Rated 1-3 Albuterol 2.5 mg 07/17/21 22:56 07/21/21 10:11 Albuterol Sulfate Neb 2.5 Mg/3 Ml Inh INHALATION 2.5 mg Q4-6H PRN Administration Shortness Of Breath Apixaban 2.5 mg 07/17/21 23:10 07/21/21 09:41 Apixaban 2.5 Mg Tablet PO 2.5 mg BID JUSTIN Administration Atorvastatin Calcium 40 mg 07/17/21 23:00 07/20/21 21:21 Atorvastatin 40 Mg Tab
[2021-07-21 12:22] LABS: NT Pro B Type Natriuretic Pept 23000 pg/mL (5-100)
[2021-07-21] MEDS: TAMSULOSIN HCL 0.4 MG CAPSULE 0.8 MG PO (16:41)
[2021-07-21] MEDS: ATORVASTATIN 40 MG TABLET PO (21:14)
[2021-07-21] MEDS: DOXEPIN HCL 25 MG CAPSULE PO (21:16)
[2021-07-21] MEDS: GABAPENTIN 300 MG CAPSULE PO (21:16)
[2021-07-21] MEDS: LORATADINE 10 MG TABLET PO (21:17)
[2021-07-21] MEDS: MELATONIN 5 MG TABLET PO (21:17)
[2021-07-21] MEDS: ONDANSETRON HCL ODT 4 MG TABLET PO (21:21)
[2021-07-22] VITALS (15 sets, daily range): BP systolic 104–136; BP diastolic 61–81; PULSE 76–106; RESP 16–20; TEMP 36.3–36.9; O2SAT 93–100
[2021-07-22] MEDS: ONDANSETRON HCL ODT 4 MG TABLET PO ×2 (06:38→14:13)
[2021-07-22] MEDS: CEPHALEXIN 500 MG CAPSULE PO ×3 (06:38→21:27)
[2021-07-22] MEDS: CENTRAL LINE FLUSH 10 ML IV PUSH ×3 (06:39→17:18)
[2021-07-22] MEDS: traMADol HCL (*CRX) 50 MG TABLET PO ×3 (06:42→21:30)
[2021-07-22] MEDS: ACETAMINOPHEN 500 MG TABLET 1000 MG PO ×3 (06:42→21:30)
[2021-07-22] MEDS: APIXABAN 2.5 MG TABLET PO ×2 (08:40→17:18)
[2021-07-22] MEDS: POTASSIUM CHLORIDE 10 MEQ TABLET.ER PO (08:40)
[2021-07-22] MEDS: CYANOCOBALAMIN 1,000 MCG TABLET 1000 MCG PO (08:41)
[2021-07-22] MEDS: carvediloL 12.5 MG TABLET PO ×2 (08:41→21:29)
[2021-07-22] MEDS: carvediloL 25 MG TABLET PO ×2 (08:41→21:27)
[2021-07-22] MEDS: CLOPIDOGREL BISULFATE 75 MG TABLET PO (08:41)
[2021-07-22] MEDS: FLUCONAZOLE 100 MG TABLET 200 MG PO (08:42)
[2021-07-22] MEDS: guaiFENesin 12 HR 600 MG TABCR PO ×2 (08:42→21:28)
[2021-07-22] MEDS: FERROUS GLUCONATE 324 MG TABLET PO (08:42)
[2021-07-22] MEDS: PANTOPRAZOLE 40 MG TABLET PO (08:43)
[2021-07-22] MEDS: MULTIVITAMINS THERAPEUTIC TAB (*BKC) 1 TABLET PO (08:43)
[2021-07-22] MEDS: TRIAMCINOLONE ACET 0.1% OINT 15 GM TUBE 1 APPLIC TOPICAL (08:44)
[2021-07-22] MEDS: UMECLIDINIUM BROMIDE 62.5 MCG ELLIPTA 1 PUFF INHALATION (08:53)
--- NOTE | 2021-07-22 10:48 | PM.IMPN ---
Progress Note: A&P Assessment and Plan (1) Shortness of breath: Code(s): R06.02 - Shortness of breath Status: Acute Assessment and Plan: Likely 2/2 to volume overload. -2.3L negative yesterday and on 2LNC this morning. Uses 2L at night for ANDRZEJ and only uses oxygen during the day after exertion. -Patient may benefit from an echo -Appreciate recs from Cardiology - will get CT scan of the chest to evaluate -OT recommends skilled OT at discharge -PT recommends skilled PT at discharge -improved continue current treatment (2) Monie UTI: Code(s): B37.49 - Other urogenital candidiasis Status: Acute Assessment and Plan: Candidia albicans isolated on urine from the kumari. Patient also endorsed a burning sensation. Fluconazole started overnight. Patient is paced. -Fluconazole 200 mg po day #3/ days (3) Tachycardia: Code(s): R00.0 - Tachycardia, unspecified Status: Acute Assessment and Plan: Likely 2/2 to his underlying smouldering infection w/ he empyema versus the monie UTI. -Continue keflex - follow-up blood culture (4) COPD with emphysema: Code(s): J43.9 - Emphysema, unspecified Status: Acute Assessment and Plan: Take cephalexin 500 mg q8h at home. -Continue cephalxin -Continue home inhalers -blood culture from central line (5) Chronic kidney disease, stage 3: Code(s): N18.30 - Chronic kidney disease, stage 3 unspecified Status: Acute Assessment and Plan: Creatinine increased to 2.00. Continue to monitor improved (6) Hypertension: Qualifiers: Hypertension type: primary hypertension Qualified Code(s): I10 - Essential (primary) hypertension Code(s): I10 - Essential (primary) hypertension Status: Chronic Assessment and Plan: Continue home medications. (7) GERD (gastroesophageal reflux disease): Code(s): K21.9 - Gastro-esophageal reflux disease without esophagitis Status: Acute Assessment and Plan: Takes omeprazole 20 mg daily at home -Continue protonix (8) Anemia: Qualifiers: Anemia type: other cause Other causes of anemia: chronic disease, other Qualified Code(s): D63.8 - Anemia in other chronic diseases classified elsewhere Code(s): D64.9 - Anemia, unspecified Status: Acute Assessment and Plan: All iron labs low except ferritin which is also an acute phase reactant. Vitamin b12 also low. -Ferrous gluconate 324 every other day -Cyanocobalamin 1,000 mcg daily (9) Hyponatremia: Code(s): E87.1 - Hypo-osmolality and hyponatremia Status: Acute Assessment and Plan: Acute hyponatremia fluid restriction repeat BMP in a.m. Anticipate discharge in a.m. patient may need rehab (10) CHF exacerbation: Code(s): I50.9 - Heart failure, unspecified Status: Acute Assessment and Plan: probable acute of chronic diastolic CHF exacerbation start IV diuretics for now patient is more short of breath today have worsening lower extremity swelling Subjective Date/time seen: 07/22/21 10:48 Interval history: Patient seen and examined Patient feels better today he still have generalized weakness patient complains of shortness of breath BMP is elevated started IV Lasix ordered CT scan of the chest Patient denies fever headache chest pain I am seeing the patient for hyponatremia Exam Narrative: Alert Chest decreased air entry bilateral Abdomen nontender nondistended CVS S1 + S2 Lower extremity minimal edema Objective Data Vital Signs Vital Signs: Vital Signs - 24 hr 07/21/21 12:00 07/21/21 12:33 07/21/21 14:00 Temperature 98.3 F Pulse Rate 85 82 90 Respiratory Rate 18 Blood Pressure 118/69 Pulse Oximetry 93 100 07/21/21 16:00 07/21/21 16:53 07/21/21 18:00 Temperature 98.3 F Pulse Rate 90 99 97 Respiratory Rate 20 Blood Pressure 123/79 Pulse Oximetry 9
[2021-07-22 11:47] LABS: Red Blood Cell Folate >1000 ng/mL RBC (>280)
--- NOTE | 2021-07-22 14:49 | PM.PNCARD ---
Progress Note: A&P Assessment and Plan (1) Elevated troponin: Code(s): R77.8 - Other specified abnormalities of plasma proteins Status: Acute Assessment and Plan: Likely non ACS in the setting of respiratory failure and CHF. Continue antiplatelet treatment. (2) Diastolic CHF: Code(s): I50.30 - Unspecified diastolic (congestive) heart failure Status: Acute Assessment and Plan: Patient's symptoms of shortness of breath are predominantly from underlying COPD/emphysema and recent infection. No significant volume overload at present on physical examination. CT does show small effusions and some fluid in the fissures, and proBNP was elevated, so reasonable to diurese with IV Lasix 20 mg b.i.d. as you have ordered. (3) Respiratory failure: Code(s): J96.90 - Respiratory failure, unspecified, unspecified whether with hypoxia or hypercapnia Status: Acute Assessment and Plan: Management as per primary team and pulmonology. Subjective Date/time seen: 07/22/21 14:49 Interval history: Follow-up for shortness of breath mostly related to COPD exacerbation, with a small contribution of volume overload and CHF. Recently treated Jarvis for empyema.. History of pacemaker, followed by Dr. Lay. 07/21/2021 Interval history: Patient reports minimal improvement in his shortness of breath. Denies chest pain. On telemetry, he is in ventricular paced rhythm with heart rates in 100s. Date of service 07/22/2021: Started furosemide 20 mg b.i.d today as patient had more SOB and edema. Did well with physical therapy, walked 50 ft. Does have some MONTEZ. ProBNP on July [address] today showed atelectasis, small bilateral effusions, moderate COPD, acute left rib fractures, chronic debility near the left pleural thickening Review of Systems Constitutional: Constitutional: Reports weakness Eyes: Eyes: Reports no additional eye complaints ENT: Denies epistaxis Cardiovascular: Cardiovascular: Denies chest pain Respiratory: Respiratory: Reports dyspnea and Reports dyspnea on exertion Gastrointestinal: Gastrointestinal: Denies abdominal pain Genitourinary: Genitourinary: Denies hematuria Musculoskeletal: Musculoskeletal: Reports no additional musculoskeletal complaints Integumentary/Breasts: Skin/Breast: Denies rash Neurologic: Reports system reviewed and no additional complaints, except as documented Psychiatric: Psychiatric: Reports no additional psychiatric complaints Exam Const: General: comfortable and no acute distress HENMT: General nose exam: no epistaxis Eyes: General: appearance normal, both eyes and all related structures Neck: Thyroid: thyroid normal Resp: Effort & Inspection: normal respiratory effort Cardio: Rate: regular rate Rhythm: regular rhythm Heart sounds: no murmurs GI: GI Palp: Yes Soft to palpation and No Tenderness to palpation present (GI) Skin: General skin exam: normal color and no rashes or lesions noted Neuro: Cognition (Neuro): abnormal cognition (Sleepy, arouses patient from nap) Extrem: General: no edema and no pedal edema Psych: Mental Status: mental status grossly normal Objective Data Vital Signs Vital Signs: Vital Signs - 24 hr 07/21/21 16:00 07/21/21 16:53 07/21/21 18:00 Temperature 98.3 F Pulse Rate 90 99 97 Respiratory Rate 20 Blood Pressure 123/79 Pulse Oximetry 99 100 07/21/21 19:45 07/21/21 19:46 07/21/21 19:55 Temperature Pulse Rate 91 89 Respiratory Rate 20 20 Blood Pressure Pulse Oximetry 98 07/21/21 20:00 07/21/21 21:14 07/21/21 21:15 Temperature 98.2 F Pulse Rate 89 99 99 Respiratory Rate 22 H Blood Pressure 120/76 Pulse Oximetry 98 07/21/21 22:00 07/21/21 23:15 07/22/21 00:00 Temperature 97.4 F L Pulse Rate 96 82 84 Respiratory Rate 20 Blood Pressure 123/63 Pulse Oximetry 100 100 07/22/21 02:00 07/22/21 04:00 07/22/21 06:00 [facility]
[2021-07-22] MEDS: TAMSULOSIN HCL 0.4 MG CAPSULE 0.8 MG PO (17:17)
[2021-07-22] MEDS: FUROSEMIDE INJ 40 MG/4 ML VIAL 20 MG IV PUSH (17:18)
[2021-07-22] MEDS: ATORVASTATIN 40 MG TABLET PO (21:26)
[2021-07-22] MEDS: MELATONIN 5 MG TABLET PO (21:28)
[2021-07-22] MEDS: DOXEPIN HCL 25 MG CAPSULE PO (21:28)
[2021-07-22] MEDS: GABAPENTIN 300 MG CAPSULE PO (21:28)
[2021-07-22] MEDS: LORATADINE 10 MG TABLET PO (21:29)
[2021-07-23] VITALS (12 sets, daily range): BP systolic 101–115; BP diastolic 52–70; PULSE 56–102; RESP 18–22; TEMP 36.3–36.6; O2SAT 93–98
[2021-07-23] MEDS: CENTRAL LINE FLUSH 10 ML IV PUSH ×2 (00:26→06:52)
[2021-07-23] MEDS: traMADol HCL (*CRX) 50 MG TABLET PO ×2 (06:49→13:29)
[2021-07-23] MEDS: ACETAMINOPHEN 500 MG TABLET 1000 MG PO ×2 (06:50→13:28)
[2021-07-23] MEDS: CEPHALEXIN 500 MG CAPSULE PO ×2 (06:51→13:30)
[2021-07-23] MEDS: UMECLIDINIUM BROMIDE 62.5 MCG ELLIPTA 1 PUFF INHALATION (09:06)
[2021-07-23] MEDS: FUROSEMIDE INJ 40 MG/4 ML VIAL 20 MG IV PUSH (09:56)
[2021-07-23] MEDS: FLUCONAZOLE 100 MG TABLET 200 MG PO (09:56)
[2021-07-23] MEDS: PANTOPRAZOLE 40 MG TABLET PO (09:57)
[2021-07-23] MEDS: APIXABAN 2.5 MG TABLET PO (09:57)
[2021-07-23] MEDS: POTASSIUM CHLORIDE 10 MEQ TABLET.ER PO (09:57)
[2021-07-23] MEDS: carvediloL 12.5 MG TABLET PO (09:57)
[2021-07-23] MEDS: CYANOCOBALAMIN 1,000 MCG TABLET 1000 MCG PO (09:57)
[2021-07-23] MEDS: carvediloL 25 MG TABLET PO (09:58)
[2021-07-23] MEDS: CLOPIDOGREL BISULFATE 75 MG TABLET PO (09:58)
[2021-07-23] MEDS: TRIAMCINOLONE ACET 0.1% OINT 15 GM TUBE 1 APPLIC TOPICAL (09:59)
[2021-07-23] MEDS: guaiFENesin 12 HR 600 MG TABCR PO (09:59)
[2021-07-23] MEDS: polyethylene glycoL 3350 17 GM POWD.PACK PO (09:59)
[2021-07-23] MEDS: MULTIVITAMINS THERAPEUTIC TAB (*BKC) 1 TABLET PO (09:59)
--- NOTE | 2021-07-23 12:38 | PM.DS ---
DS: Admitting Diagnosis Discharge Date 07/17/2021 Admitting Diagnosis Shortness of breath DS: Discharge Diagnosis Discharge Diagnosis (1) Shortness of breath: Code(s): R06.02 - Shortness of breath Status: Acute Assessment and Plan: Likely 2/2 to volume overload. -2.3L negative yesterday and on 2LNC this morning. Uses 2L at night for ANDRZEJ and only uses oxygen -Appreciate recs from Cardiology -CT scan of the chest was reviewed no significant pleural effusion -follow-up with pulmonology follow-up with cardiology as outpatien (2) Monie UTI: Code(s): B37.49 - Other urogenital candidiasis Status: Acute Assessment and Plan: Candidia albicans isolated on urine from the kumari. Patient also endorsed a burning sensation. Given 5 days of fluconazole (3) Tachycardia: Code(s): R00.0 - Tachycardia, unspecified Status: Acute Assessment and Plan: Likely 2/2 to his underlying smouldering infection w/ he empyema versus the monie UTI. -completed course of Keflex completed course of fluconazole (4) COPD with emphysema: Code(s): J43.9 - Emphysema, unspecified Status: Acute Assessment and Plan: Take cephalexin 500 mg q8h at home. Completed course today -Continue home inhalers -central line was removed (5) Chronic kidney disease, stage 3: Code(s): N18.30 - Chronic kidney disease, stage 3 unspecified Status: Acute Assessment and Plan: Repeat CMP in 1 week (6) Hypertension: Qualifiers: Hypertension type: primary hypertension Qualified Code(s): I10 - Essential (primary) hypertension Code(s): I10 - Essential (primary) hypertension Status: Chronic Assessment and Plan: Continue home medications. (7) GERD (gastroesophageal reflux disease): Code(s): K21.9 - Gastro-esophageal reflux disease without esophagitis Status: Acute Assessment and Plan: Takes omeprazole 20 mg daily at home -Continue protonix (8) Anemia: Qualifiers: Anemia type: other cause Other causes of anemia: chronic disease, other Qualified Code(s): D63.8 - Anemia in other chronic diseases classified elsewhere Code(s): D64.9 - Anemia, unspecified Status: Acute Assessment and Plan: All iron labs low except ferritin which is also an acute phase reactant. Vitamin b12 also low. -Ferrous gluconate 324 every other day -Cyanocobalamin 1,000 mcg daily (9) Hyponatremia: Code(s): E87.1 - Hypo-osmolality and hyponatremia Status: Acute Assessment and Plan: Improved follow-up with PCP (10) CHF exacerbation: Code(s): I50.9 - Heart failure, unspecified Status: Acute Assessment and Plan: probable acute of chronic diastolic CHF exacerbation treated with diuresis patient will be discharged on oral diuretics follow-up with cardiology as outpatient DS: Summary Hospital Course Hospital Course: Patient was admitted to the hospital with shortness of breath was found to have acute CHF exacerbation cardiology was consulted patient was treated with IV Lasix his condition continued to improve patient also has candidal in the urine treated with 5 days of fluconazole patient completed course of Keflex for recent empyema infection central line was removed patient to follow-up with urology as outpatient regarding Kumari catheter removal Time Spent with Patient Time attestation: Total time spent providing and/or coordinating discharge services: Exam Narrative: Alert Chest decreased air entry bilateral Abdomen nontender nondistended CVS S1 + S2 Lower extremity minimal edema DS: Data Data Completed and Pending Labs on day of discharge: Preliminary micro results at discharge 07/21/21 12:20 Blood Culture - Preliminary Blood 07/21/21 12:19 Blood Culture - Preliminary Blood Discharge Plan Discharge Attending physician on discharge: Gee Ken
--- NOTE | 2021-07-23 13:33 | PC.NURSE ---
On 07/23/21, the student, [Forrest Caro], provided care and completed [facility] documentation on this patient. I have reviewed the student's documentation and agree with the findings.
== END 2021-07-23 16:22 | disposition home health service (06) | DRG 291 ==
LOC: ANHED 15:49 → ANHIMU 16:40
PROVIDERS: Internal Medicine Cardiovascular Disease; Physician Assistant; Admitting Provider Family Medicine; Emergency Provider Emergency Medicine; PCP Internal Medicine; Visit Provider Internal Medicine
DX: I13.0 Hypertensive heart and chronic kidney disease with heart failure and stage 1 through stage 4 chronic kidney disease, or unspecified chronic kidney disease (principal); I50.33 Acute on chronic diastolic (congestive) heart failure; B37.49 Other urogenital candidiasis; E87.1 Hypo-osmolality and hyponatremia; N18.30 Chronic kidney disease, stage 3 unspecified; R00.0 Tachycardia, unspecified; E87.70 Fluid overload, unspecified; R77.8 Other specified abnormalities of plasma proteins; I44.30 Unspecified atrioventricular block; G47.33 Obstructive sleep apnea (adult) (pediatric); J43.9 Emphysema, unspecified; D63.8 Anemia in other chronic diseases classified elsewhere; K21.9 Gastro-esophageal reflux disease without esophagitis; Z79.01 Long term (current) use of anticoagulants; Z79.899 Other long term (current) drug therapy; Z86.16 Personal history of COVID-19; Z87.891 Personal history of nicotine dependence; Z95.0 Presence of cardiac pacemaker; Z99.81 Dependence on supplemental oxygen; Z97.8 Presence of other specified devices
CPT/HCPCS: 36415; 71046; 71250; 78580; 80048; 80053; 81001; 82607; 82728; 82747; 83540; 83550; 83735; 83880; 84100; 84443; 84484; 85025; 85027; 87040; 87086; 87088; 87106; 93005; 93970; 94640; 96365; 96375; 96376; 97110; 97162; 97165; 97530; 97535; 99285; A9270; A9540; G0378; J1940; J3475

== ENCOUNTER 2021-08-17 17:15 | Emergency (ER) | payer OTHER, SELFPAY ==
[2021-08-17 17:18] VITALS: BP 184/102; PULSE 94; RESP 20; TEMP 36.6; O2SAT 98
--- NOTE | 2021-08-17 18:28 | PC.NURSE ---
Pt at intake desk stating I'M going to leave and go home and try coming back in AM Pt wheeled out of ED .
== END 2021-08-18 00:39 | disposition left against medical advice (07) ==
LOC: ANHED 18:33
PROVIDERS: PCP Internal Medicine
DX: R06.02 Shortness of breath (principal)
CPT/HCPCS: 99199

== ENCOUNTER 2021-09-07 12:54 | Outpatient (CLI) | payer OTHER, SELFPAY ==
--- NOTE | ~2021-09-07 | XR_ITS ---
[id number] DATE: 09/07/2021 13:07 INDICATION: Left anterior rib pain. No known injury. TECHNIQUE: PA chest. 3 views of the left ribs. COMPARISON: 07/17/2021 AP and lateral chest FINDINGS: There is patchy infiltrate and/atelectasis in both lower lung zones, right greater than lef t. There is hyperinflation of the lungs, right greater than left, suggesting obstructive airways dise ase. Heart size is within normal range. There is a left-sided dual-lead pacemaker device with leads overly ing right atrium and right ventricle. There is aortic calcification and tortuosity. There is diffuse osteopenia. No fracture of the bone destruction of the left rib cage is noted. IMPRESSION: Patchy bilateral lower lung infiltrate and/atelectasis Left dual-lead pacemaker device No left rib fracture or bone destruction is detected Osteopenia Reviewed, dictated and finalized at [facility] Reviewed, dictated and finalized at [facility]. CHARGER
== END 2021-09-07 12:55 | disposition home or self-care (01) ==
LOC: ANHIMG 12:56
PROVIDERS: PCP Internal Medicine; Visit Provider Family Medicine
DX: R07.81 Pleurodynia (principal); M85.88 Other specified disorders of bone density and structure, other site; R91.8 Other nonspecific abnormal finding of lung field
CPT/HCPCS: 71101

== ENCOUNTER 2021-09-29 09:52 | Outpatient (CLI) | payer OTHER, SELFPAY ==
--- NOTE | 2021-09-29 12:45 | WPDSIXMINUTE ---
Six Minute Walk Procedure Procedure Performed Pulmonary Stress Test (6 min walk) Six Minute Walk This is a 6 minute walk test. The test was performed and interpreted in accordance with the 2014 ERS/ATS task force guidelines. The test was performed on the patient's home O2 setting of 2 liters/minute with activity. Findings: The patient's resting room air oxygen saturation measured by pulse oximetry was 94% and heart rate was 91 bpm. Patient ambulated for 183 meters and oxygen saturation remained 88 to 95%. Heart rate at the end of the study was 107 bpm. The patient had saturations of 88% for a brief 8 second interval but otherwise was greater than 88% on 2 L nasal cannula throughout the remainder of the study. There are no prior studies for comparison.
--- NOTE | 2021-09-29 12:48 | WPDPFTINT ---
PFT Procedure Performed PFT Procedure Performed Spirometry with Pre/Post Bronchodilator Plethysmography (Lung Vol) Diffusing Cap (DLCO) Flow Vol Loop PFT Interpretation This is a pulmonary function test with pre and post-bronchodilator spirometry, plethysmography and diffusing capacity. The test was performed and results interpreted in accordance with the 2019 and 2005 ATS/ERS Task Force guidelines respectively using the Global Lung Function Initiative-2012 reference equations. Patient demonstrated good effort and cooperation. Reproducibility criteria were met. The quality of the pre bronchodilator spirometry maneuver was Grade B and post bronchodilator spirometry maneuver was Grade A. Findings: Spirometry: There is decreased maximal expiratory airflow at all lung volumes with concave expiratory flow tracing. The contour the inspiratory flow tracing is normal. The pre bronchodilator FVC is 3.24 L, 81% predicted. The pre bronchodilator FEV1 is 1.43 L, 47% predicted. The FEV1: FVC ratio is 44%. The post bronchodilator FVC is 3.28 L, representing 1% increase. The post bronchodilator FEV1 is 1.34 L, representing a 6% decrease. The post bronchodilator FEV1: FVC ratio is 41%. Plethysmography: The total lung capacity is 8.00 L, 121% predicted. Functional residual capacity is 6.81 L, 195% predicted. The residual volume is 4.76 L, 205% predicted. Diffusing capacity: The diffusing capacity on adjusted for hemoglobin is 10.4, 41% predicted. The diffusing capacity adjusted for alveolar volume is 2.56, 63% predicted. Impression: There is a severe obstructive abnormality without significant improvement after inhaling a single dose of albuterol. The increase in residual volume is consistent with air trapping from an obstructive abnormality. Hyperinflation is present is demonstrated by the increase in functional residual capacity and is consistent with an obstructive abnormality. The diffusing capacity unadjusted for hemoglobin is moderately decreased and remains mildly decreased when adjusted for alveolar volume. There are no prior studies for comparison
== END 2021-09-29 09:53 | disposition home or self-care (01) ==
PROVIDERS: PCP Internal Medicine; Visit Provider Nurse Practitioner
DX: J44.9 Chronic obstructive pulmonary disease, unspecified (principal)
CPT/HCPCS: 94060; 94618; 94726; 94729

== ENCOUNTER 2021-09-30 13:23 | Outpatient (CLI) | payer OTHER, SELFPAY ==
--- NOTE | ~2021-09-30 | CT_ITS ---
EXAMINATION: CT abdomen pelvis wo con DATE: 09/30/2021 14:46 INDICATION: Gross hematuria TECHNIQUE: Computed tomography (CT) of the abdomen and pelvis was performed without intravenous contr ast. Automated exposure control and iterative reconstruction technique were employed. Exam dose: 664 .77 mGy-cm total exam DLP. COMPARISON: 07/22/2021 CT chest FINDINGS: Resolution of pleural effusion since 07/22/2021. There is diminished infiltrate and atelecta sis in the left lower lobe since 07/22/2021. There are mild infiltrates and/atelectasis of the lingula , middle and right lower lobes. Normal heart size. Right atrial pacemaker lead is noted. There is another lead which terminates in th e region of the tricuspid valve. No pericardial effusion. Probable 7 mm right hepatic cyst. The liver is otherwise unremarkable. No bile duct dilatation. The g allbladder is present. No gallbladder wall thickening or pericholecystic fluid or fat stranding. No pancreatic mass lesion is evident. The pancreatic duct size appears within normal range. 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 Normal splenic size. Relatively low-attenuation approximately 1.5 cm left adrenal mass, likely an adrenal adenoma if there is no history of cancer. Approximately 1.3 cm right adrenal adenoma is suggested. Approximately 5.5 mm nonobstructing lower pole right renal calculus. Several 7 mm smaller probable hy perdense right renal cysts. Hyperdense exophytic 12 mm upper pole left renal cyst with attenuation of 87 Hounsfield units. 1.4 cm probable partially exophytic medial upper pole left renal cyst. There are areas of left renal scarring and volume loss. No obvious suspicious renal mass lesion is evident on this limited noncontrast examination. No left renal calculus or left or right ureteral calculus or hydroureteronephrosis. The superior urin tierra bladder appears essentially unremarkable but the bladder incompletely evaluated due to extensive streak artifact from bilateral hip replacements obscuring much of the pelvis structures. There is calcification of the celiac artery. There is severe calcification of the superior mesenteric artery and prominent calcification at the origin of the inferior mesenteric artery. The proximal abd ominal aorta measures up to 3.4 cm diameter, the infrarenal abdominal aorta up to 3.7 cm diameter. Th e right common iliac artery measures up to 2.5 cm diameter, the left common iliac artery 2.[address] There is severe calcification of the common, external and internal iliac and femoral arteries. No intraperitoneal or retroperitoneal or pelvic mass lesion or adenopathy or ascites is evident other mcdaniel. Normal appendix. There is diverticulosis of the left colon; no CT evidence of diverticulitis. No claudio l obstruction, bowel wall thickening, pneumatosis or intraperitoneal free air. Status post ventral abdominal wall hernia repair. Degenerative changes of the lower thoracic spine. Bilateral L5 pars interarticularis defects with gra de 1 anterolisthesis at L5-S1. Diffuse osteopenia. IMPRESSION: Approximately 5.5 mm nonobstructing lower pole right renal calculus Several up to 7 mm cyst or smaller probable hyperdense right renal cysts Left renal 1.4 cm and 1.2 cm cysts Left renal scarring This is a limited examination without the use of IV contrast material. Also, the urinary bladder is p artially obscured by streak artifact from bilateral hip replacements. Consider further evaluation wit h bladder ultrasound, possible IVP, given the history of gross hematuria. Probable bilateral adrenal adenomas 7 mm probable hepatic cyst Abdominal aortic and common iliac artery aneurysms; severe calcification of the superior mesenteric a rtery Diverticulosis of the colon; no CT evidence of diverticulitis Bilateral L5 p
[2021-09-30 14:20] LABS: Estimated Glomerular Filt Rate 30
== END 2021-09-30 13:24 | disposition home or self-care (01) ==
PROVIDERS: PCP Family Medicine; Visit Provider Nurse Practitioner
DX: R31.0 Gross hematuria (principal); N28.1 Cyst of kidney, acquired; N20.0 Calculus of kidney; K57.30 Diverticulosis of large intestine without perforation or abscess without bleeding; K76.89 Other specified diseases of liver
CPT/HCPCS: 74176

== ENCOUNTER 2021-10-22 21:33 | Emergency (ER) | payer OTHER, SELFPAY ==
[2021-10-22 21:36] VITALS: BP 152/96; PULSE 98; RESP 18; TEMP 36.5; O2SAT 100
--- NOTE | 2021-10-22 21:48 | ED.MALEGU ---
HPI - Male Genitourinary General Chief complaint: Urogenital-Male Stated complaint: blood in urine Time Seen by Provider: 10/22/21 21:45 History of Present Illness HPI Narrative: 71-year-old male presents to the emergency room with complaints of bleeding around his [place] catheter site. Patient states he had a traumatic cystogram earlier today, urologist was unable to advance the bladder. Instead urologist placed a [place] catheter and have patient follow-up in 1 week. Patient is currently on Plavix and Eliquis. Related Data Home Medications Medication Instructions Recorded Confirmed albuterol sulfate 2.5 mg INHALATION Q4-6H PRN 03/03/21 08/10/21 albuterol sulfate 90 mcg/actuation 1 puff INHALATION Q4H PRN 03/03/21 08/10/21 aerosol inhaler apixaban 2.5 mg tablet 2.5 mg PO BID 03/03/21 08/10/21 atorvastatin 40 mg tablet 40 mg PO QHS 03/03/21 08/10/21 carvedilol 25 mg tablet 12.5 mg PO BID tablet 03/03/21 08/10/21 cetirizine 10 mg tablet 10 mg PO HS 03/03/21 08/10/21 clopidogrel 75 mg tablet 75 mg PO DAILY 03/03/21 08/10/21 omeprazole 20 mg capsule,delayed 20 mg PO DAILY 03/03/21 08/10/21 release tiotropium bromide 2.5 2 puff INHALATION DAILY 03/03/21 08/10/21 mcg/actuation mist for inhalation tramadol 50 mg tablet 50 mg PO Q6H PRN 03/03/21 08/10/21 acetaminophen 500 mg PO Q6H PRN 06/02/21 08/10/21 carvedilol 25 mg PO BID 06/02/21 08/10/21 Adults Multivitamin 1 tablet PO DAILY 07/17/21 08/10/21 melatonin 5 mg PO HS 07/17/21 08/10/21 polyethylene glycol 3350 [Miralax] 17 g PO DAILY 07/17/21 08/10/21 tamsulosin 0.8 mg PO QPM 07/17/21 08/10/21 fluticasone 500 mcg-salmeterol 50 1 inh INHALATION Q12H 10/12/21 mcg/dose blistr powdr for inhalation Allergies Allergy/AdvReac Type Severity Reaction Status Date / Time amoxicillin [From Augmentin] Allergy Swelling Verified 10/22/21 21:38 clavulanic acid Allergy Swelling Verified 10/22/21 21:38 [From Augmentin] Review of Systems Review of Systems: CONSTITUTIONAL: Denies fever, chills, or sweats. EYES: Denies visual changes, redness, or discharge. ENT: Denies rhinorrhea, congestion, sore throat, or otalgia. CARDIOVASCULAR: Denies chest pain, palpitations, or edema. RESPIRATORY: Denies cough or dyspnea. GASTROINTESTINAL: Denies abdominal pain, nausea, vomiting, or diarrhea. GENITOURINARY: per HPI SKIN: Denies rash or itching. MUSCULOSKELETAL: Denies back pain, joint pain, or myalgia. NEUROLOGIC: Denies headache, numbness, dizziness, or weakness. PSYCHIATRIC: Denies anxiety or depression. [facility] Past Medical History Medical History Anemia Arthritis AV block Status post Medtronic pacemaker placement. Benign prostatic hyperplasia Chronic anemia Chronic kidney disease, stage 3 COPD with emphysema COVID-19 (04/2020) Eczema Empyema of left pleural space (05/2021) Pleural fluid grew out strep intermedius in staph hominis. Status post thoracotomy with decortication. Gastroesophageal reflux disease Hypertension Obstructive sleep apnea On 2 L nasal cannula at nighttime. Peripheral vascular disease Status post right carotid endarterectomy. Status post left lower extremity stent. Psoriasis Urinary retention Surgical History Surgical History History of herniorrhaphy History of hip replacement Bilaterally with revision History of right-sided carotid endarterectomy History of thoracotomy (05/2021) Left thoracotomy with decortication for empyema. History of tonsillectomy Status post peripheral artery angioplasty with insertion of stent Left lower extremity. Status post placement of cardiac pacemaker (06/2020) Family History Family History Father Hypertension Heart disease Cerebrovascular accident Mother Asthma Diabetes mellitus Hypertension Sibling Hypertension Social History Soc
--- NOTE | 2021-10-22 21:54 | PC.NURSE ---
patient went to urologist today for f/u from CT scan that showed a stricture. they were unable to pass the camera pass the stricture so they inserted a kumari catheter. patient reports it took 2 attempts. patient takes plavix and eliquis. no hematuria noted.
[2021-10-22 22:08] LABS: Add Urine Microscopic? YES; Appearance Urine Clear (Clear); Bacteria Urine Trace /hpf; Bilirubin Urine Negative (Negative); Blood Urine 3+ (Negative); Color Urine Yellow (Yellow); Glucose Urine UA Negative (Negative); Ketones Urine Negative (Negative); Leukocyte Esterase Ur 2+ LEU/UL (Negative); Mucus Urine Rare /lpf; Nitrate Urine Negative (Negative); Protein Urine Negative (Negative); RBC Urine >75 /hpf (0-2); Specific Grav Ur 1.011 (1.001-1.035); Urobilinogen Urine Negative mg/dL (<2.0)
[2021-10-22 22:20] LABS: Basophils Percent Auto 0.3 % (0.2-1.2); Eosinophils Absolute Auto 0.4 K/mm3 (0-0.3); Eosinophils Percent Auto 4.7 % (0-4.4); Hematocrit 42.7 % (42.0-52.0); Hemoglobin 12.7 g/dL (14.0-18.0); Immature Granulocyte Absolute 0.03 K/mm3 (0.00-0.031); Immature Granulocyte Percent A 0.3 % (0-0.5); Lymphocytes Absolute Auto 1.11 K/mm3 (0.9-3.2); Lymphocytes Percent Auto 12.4 % (18.3-44.2); Mean Corpuscular HGB Conc 29.7 g/dl (32-36); Mean Corpuscular Hemoglobin 26.6 pg (26-34); Mean Corpuscular Volume 89.3 fl (80-100); Mean Platelet Volume 9.1 fl (7.4-10.4); Monocytes Absolute Auto 0.7 K/mm3 (0.1-0.6); Monocytes Percent Auto 7.8 % (2.6-8.5); Neutrophils Absolute Auto 6.7 K/mm3 (1.3-6.7); Neutrophils Percent Auto 74.5 % (45.5-73.1); Platelet Count Result 232 k/mm3 (150-375); Red Blood Count 4.78 M/mm3 (4.6-6.20); Red Cell Distribution Width 14.5 % (11.5-14.5)
[2021-10-22 23:07] VITALS: BP 148/90; PULSE 91; RESP 18; TEMP 36.6; O2SAT 98
== END 2021-10-22 23:08 | disposition home or self-care (01) ==
PROVIDERS: Emergency Provider Nurse Practitioner Family; PCP Family Medicine
DX: T83.83XA Hemorrhage due to genitourinary prosthetic devices, implants and grafts, initial encounter (principal); S37.39XA Other injury of urethra, initial encounter; Y84.6 Urinary catheterization as the cause of abnormal reaction of the patient, or of later complication, without mention of misadventure at the time of the procedure; N40.0 Benign prostatic hyperplasia without lower urinary tract symptoms; D64.9 Anemia, unspecified; I12.9 Hypertensive chronic kidney disease with stage 1 through stage 4 chronic kidney disease, or unspecified chronic kidney disease; N18.30 Chronic kidney disease, stage 3 unspecified; Z86.16 Personal history of COVID-19; J43.9 Emphysema, unspecified; K21.9 Gastro-esophageal reflux disease without esophagitis; G47.33 Obstructive sleep apnea (adult) (pediatric); I73.9 Peripheral vascular disease, unspecified; Z95.0 Presence of cardiac pacemaker; Z96.643 Presence of artificial hip joint, bilateral; Z95.5 Presence of coronary angioplasty implant and graft; Z87.891 Personal history of nicotine dependence; Z79.01 Long term (current) use of anticoagulants; Z79.02 Long term (current) use of antithrombotics/antiplatelets
CPT/HCPCS: 36415; 81001; 85025; 87086; 99283

== ENCOUNTER 2021-12-29 08:00 | Outpatient (CLI) | payer OTHER, SELFPAY ==
--- NOTE | ~2021-12-29 | PE_ITS ---
EXAMINATION: PET skull to mid thigh DATE: 12/29/2021 10:05 INDICATION: Multiple pulmonary nodules. TECHNIQUE: Blood glucose level was 107 mg/dL. 8.815 mCi of 18-fluorodeoxyglucose (18-FDG) was adminis tered i.v. a field scout topogram was obtained in the lateral projection at which point the patient termina darrion the study due to claustrophobia. The dose-length product was 0.00 mGy-cm. FINDINGS/IMPRESSION: Study aborted at patient request prior to obtaining CT or PET images due to claustrophobia despite lopez ving taken anxiolytics which per patient report did not help. Reviewed, dictated and finalized at location A.
[2021-12-29 08:30] LABS: Glucose Point of Care 107 mg/dl (65-105)
== END 2021-12-29 08:01 | disposition home or self-care (01) ==
PROVIDERS: PCP Family Medicine; Visit Provider Nurse Practitioner
DX: R91.8 Other nonspecific abnormal finding of lung field (principal)
CPT/HCPCS: 78815; A9552

== ENCOUNTER 2022-01-07 13:53 | Day surgery (SDC) | payer OTHER, SELFPAY ==
--- NOTE | ~2022-01-07 | XR_ITS ---
EXAMINATION: XR fluoroscopy no charge DATE: 01/08/2022 13:55 INDICATION: Urethral stricture. TECHNIQUE: 11 intraoperative fluoroscopic views of the pelvis were obtained. I was not present. Fluor oscopy exposure time was 28 seconds. COMPARISON: CT abdomen and pelvis 09/30/2021 FINDINGS: There are surgical clips from ventral hernia repair. There are bilateral hip arthroplasties . Images demonstrate placement of a wire, dilators, and then a catheter into the bladder. IMPRESSION: 1. Catheter placement in the bladder. Reviewed, dictated and finalized at location A.
--- NOTE | 2022-01-07 13:11 | WPDANESEPPF ---
Anes - Initial Pre Proc Eval Procedure: Operation Date: 01/07/22 14:45 Proposed Procedures p Cystoscopy, Urethral Dilatation, Possible Suprapubic Tube Placement - Yousif Aguero MD Date/Time: 01/07/22 13:11 Surgeon: Yousif Aguero MD Pre Op Diagnosis: urethral stricture Patient Data Age: 71 Gender: M Height: Weight: Allergies Allergy/AdvReac Type Severity Reaction Status Date / Time amoxicillin [From Augmentin] Allergy Swelling Verified 10/22/21 21:38 clavulanic acid Allergy Swelling Verified 10/22/21 21:38 [From Augmentin] Home Medications Medication Instructions Recorded Confirmed Type albuterol sulfate 2.5 mg INHALATION Q4-6H PRN 03/03/21 08/10/21 History albuterol sulfate 90 mcg/actuation 1 puff INHALATION Q4H PRN 03/03/21 08/10/21 History aerosol inhaler apixaban 2.5 mg tablet 2.5 mg PO BID 03/03/21 08/10/21 History atorvastatin 40 mg tablet 40 mg PO QHS 03/03/21 08/10/21 History carvedilol 25 mg tablet 12.5 mg PO BID tablet 03/03/21 08/10/21 History cetirizine 10 mg tablet 10 mg PO HS 03/03/21 08/10/21 History clopidogrel 75 mg tablet 75 mg PO DAILY 03/03/21 08/10/21 History omeprazole 20 mg capsule,delayed 20 mg PO DAILY 03/03/21 08/10/21 History release tiotropium bromide 2.5 2 puff INHALATION DAILY 03/03/21 08/10/21 History mcg/actuation mist for inhalation tramadol 50 mg tablet 50 mg PO Q6H PRN 03/03/21 08/10/21 History doxepin 25 mg capsule 25 mg PO QHS #90 cap 03/10/21 08/10/21 Rx acetaminophen 500 mg PO Q6H PRN 06/02/21 08/10/21 History carvedilol 25 mg PO BID 06/02/21 08/10/21 History Adults Multivitamin 1 tablet PO DAILY 07/17/21 08/10/21 History melatonin 5 mg PO HS 07/17/21 08/10/21 History polyethylene glycol 3350 [Miralax] 17 g PO DAILY 07/17/21 08/10/21 History tamsulosin 0.8 mg PO QPM 07/17/21 08/10/21 History triamcinolone acetonide 0.1 % 1 applic TOPICAL DAILY #80 g 08/20/21 Rx topical ointment lidocaine 5 % topical patch 1 patch TOPICAL DAILY #15 ea 09/08/21 Rx fluticasone 500 mcg-salmeterol 50 1 inh INHALATION Q12H 10/12/21 History mcg/dose blistr powdr for inhalation gabapentin 300 mg capsule 300 mg PO DAILY PRN #90 cap 10/12/21 Rx furosemide 40 mg tablet 40 mg PO QAM #30 tablet 01/05/22 Rx potassium chloride 10 mEq 10 meq PO DAILY #30 cap 01/05/22 Rx capsule,extended release dupilumab 300 mg/2 mL subcutaneous 300 mg SUBCUT .COMPLEX #4 ml 01/07/22 Rx syringe Patient hx anesthesia problems: none Family hx anesthesia problems: none Results Review: All pre-operative results and documents have been reviewed as part of the pre-operative evaluation. [facility] Past Medical History Medical History (Updated 01/07/22 @ 13:13 by Randal Jaimes MD) Anemia Arthritis AV block Status post Medtronic pacemaker placement. Benign prostatic hyperplasia CHF exacerbation Chronic anemia Chronic kidney disease, stage 3 COPD with emphysema COVID-19 (04/2020) Diastolic CHF Eczema Empyema of left pleural space (05/2021) Pleural fluid grew out strep intermedius in staph hominis. Status post thoracotomy with decortication. Gastroesophageal reflux disease Hypertension Obstructive sleep apnea On 2 L nasal cannula at nighttime. Peripheral vascular disease Status post right carotid endarterectomy. Status post left lower extremity stent. Psoriasis Urinary retention Surgical History Surgical History (Updated 01/07/22 @ 13:13 by Randal Jaimes MD) AICD (automatic cardioverter/defibrillator) present History of herniorrhaphy History of hip replacement Bilaterally with revision History of right-sided carotid endarterectomy History of thoracotomy (05/2021) Left thoracotomy with decortication for empyema. History of tonsillectomy Status post peripheral artery angioplasty with insertion of stent Left lower extremity. Status post placement of cardiac pacemaker (06/2020) Family History Family History (Reviewed 10/22/21 @ 22:52 by Noah
--- NOTE | 2022-01-07 15:00 | WPDHPUPDATE1 ---
History and Physical Update Update Date/Time: 01/07/22 15:00 History and Physical has been reviewed, including an updated exam of the patient. There are NO changes in the patient's condition. Risks, benefits, and alternatives have been discussed and questions answered. Patient agrees to proceed with procedure.
[2022-01-07] MEDS: ceFAZolin 2 GM/D5W 50 ML 2 GM/50 ML BAG IVPB (15:03)
[2022-01-07] MEDS: LACTATED RINGERS 1,000 ML 30 ML IV CONT (15:17)
[2022-01-07 15:18] VITALS: BP 192/101; PULSE 102; RESP 14; TEMP 36; O2SAT 96
[2022-01-07] MEDS: LIDOCAINE HCL 2% GEL UROJET 10 ML PKG MUCOUS MEM (15:19)
[2022-01-07 15:35] VITALS: BP 174/86; PULSE 90; RESP 26; TEMP 36.1; O2SAT 100
[2022-01-07 15:50] VITALS: BP 168/94; PULSE 90; RESP 14; O2SAT 100
[2022-01-07 16:00] VITALS: BP 185/79; PULSE 91; RESP 16
--- NOTE | 2022-01-07 16:07 | P.OP_ITS ---
Procedure Note - Detailed Date of Procedure 01/07/22 Pre-op Diagnosis Urethral stricture (bulbar urethra) Post-op Diagnosis Same Procedure Performed Cystoscopy, urethral dilatation with complex placement of urethral catheter. Surgeon Yousif Aguero MD Anesthesia General Description of Procedure After road unsuccessful attempt at urethral dilatation and catheter placement in the office patient is brought to the operative suite where he has prepped draped in routine sterile fashion while in a dorsal lithotomy position. 2% xylocaine jelly was introduced intraurethrally and a general LMA anesthetic is administered per the anesthesia department. Cystoscopy is undertaken with a 19 F flexible cystoscope. After some searching I was able to identify the urethral lumen. This was posterior to a false passage in the anterior aspect of the bulbous urethra. Under fluoroscopy I advanced a guidewire into the bladder and dilated over this with Amplatz dilators from 8 F to 20 F. I then placed a 18 F [place] tip catheter to drainage. Efflux was clear at the terminate of the procedure. Estimated Blood Loss 0 Drains Yes Packing No Pathology None sent Complications No immediate complications Condition Stable Disposition PACU
[2022-01-07 16:30] VITALS: BP 185/74; PULSE 89; RESP 16
[2022-01-07] MEDS: oxyCODONE HCL (*CRX) 5 MG TAB IR PO (16:35)
[2022-01-07 17:00] VITALS: BP 165/56; PULSE 94; RESP 16
== END 2022-01-07 17:20 | disposition home or self-care (01) ==
PROVIDERS: PCP Family Medicine; Visit Provider Urology
PROC: 0T7D8ZZ Dilation of Urethra, Via Natural or Artificial Opening Endoscopic (ICD-10-PCS; CPT 52281; principal; 2022-01-07 14:45)
DX: N35.912 Unspecified bulbous urethral stricture, male (principal); I13.0 Hypertensive heart and chronic kidney disease with heart failure and stage 1 through stage 4 chronic kidney disease, or unspecified chronic kidney disease; I50.30 Unspecified diastolic (congestive) heart failure; N18.30 Chronic kidney disease, stage 3 unspecified; E11.51 Type 2 diabetes mellitus with diabetic peripheral angiopathy without gangrene; D64.9 Anemia, unspecified; J43.9 Emphysema, unspecified; K21.9 Gastro-esophageal reflux disease without esophagitis; G47.33 Obstructive sleep apnea (adult) (pediatric); L40.9 Psoriasis, unspecified; N40.0 Benign prostatic hyperplasia without lower urinary tract symptoms; Z95.810 Presence of automatic (implantable) cardiac defibrillator; Z95.820 Peripheral vascular angioplasty status with implants and grafts; Z87.891 Personal history of nicotine dependence
CPT/HCPCS: 52281; A9270; C1726; C1769; J0330; J0690; J2405; J2704; J3010; J7120

== ENCOUNTER → 2022-02-08 09:18 | Outpatient (CLI) | payer OTHER, SELFPAY ==
--- NOTE | ~2022-02-08 | US_ITS ---
EXAMINATION: US renal BI DATE: 02/08/2022 09:36 INDICATION: Stage IV chronic kidney disease TECHNIQUE: Multiple ultrasound grayscale images of the kidneys were obtained. COMPARISON: None. FINDINGS: The right kidney measures 9.9 x 4.0 x 5.6 cm. The left kidney measures 9.9 x 4.5 x 5.2 cm. The kidney s demonstrate normal echogenicity. 1.7 cm anechoic cyst at the upper pole of the left kidney. There i s no hydronephrosis in either kidney. No stones identified. The bladder is normal. IMPRESSION: 1. 1.7 cm left renal cyst. Otherwise normal kidneys without hydronephrosis. Reviewed, dictated and finalized at location B.
== END ==
PROVIDERS: PCP Family Medicine; Visit Provider Internal Medicine Nephrology
DX: N18.4 Chronic kidney disease, stage 4 (severe) (principal); N28.1 Cyst of kidney, acquired
CPT/HCPCS: 76775

== ENCOUNTER 2022-04-03 13:00 | Emergency (ER) | payer OTHER, SELFPAY ==
[2022-04-03] VITALS (17 sets, daily range): BP systolic 160–190; BP diastolic 78–106; PULSE 76–94; RESP 15–24; TEMP 36.3; O2SAT 93–100
--- NOTE | ~2022-04-03 | XR_ITS ---
EXAMINATION: XR chest 1V portable INDICATION: Shortness of breath TECHNIQUE: Portable AP chest at 1325 hours COMPARISON: 09/07/2021 FINDINGS: There are minimal airspace opacities of the lung bases, left greater than right. There is a nodule of the right midlung zone. No pleural effusion or pneumothorax. The heart size is normal. A d ual-lead cardiac pacemaker of the left chest wall ends with leads in expected locations. IMPRESSION: 1. Minimal bibasilar airspace opacity, left greater than right, and nodular opacity of the right midl bailey zone which may reflect atelectasis versus pneumonia. Recommend followup radiographs in 10-14 days after appropriate therapy to evaluate for improvement/resolution. Reviewed, dictated and finalized at location A. IMPRESSION: 1. Minimal bibasilar airspace opacity, left greater than right, and nodular opa city of the right midlung zone which may reflect atelectasis versus pneumonia. Recommend followup radiographs in 10-14 days after appropriate therapy to evalu ate for improvement/resolution.
--- NOTE | 2022-04-03 13:06 | ECG_ITS ---
Measurements Intervals [place] Rate: 87 P: 72 [place]: 222 QRS: 16 QRSD: 110 T: 81 QT: 350 QTc: 423 Interpretive Statements SINUS RHYTHM WITH FIRST DEGREE AV BLOCK ELECTRONIC VENTRICULAR PACED RHYTHM NO FURTHER INTERPRETATION POSSIBLE COMPARED TO ECG 07/17/2021 10:14:20 HEART RATE HAS DECREASED Electronically Signed On 04-04-2022 14:23:17 CDT by Tigre Mcgovern M.D.
--- NOTE | 2022-04-03 13:06 | ED.SOB ---
HPI - SOB/Dyspnea General Chief Complaint: Shortness of Breath/Dyspnea Stated Complaint: congestion, sob Time Seen by Provider: 04/03/22 13:06 Source: patient, family and RN notes reviewed Mode of arrival: ambulatory Limitations: no limitations History of Present Illness HPI Narrative: 71 years old white female came from home with his sister complaining of gradual increase of shortness of breath over the last 2 weeks. Patient was seen by his family physician 2 weeks ago and started on Cipro without any improvement. History of COPD, and atrial fibrillation on Xarelto. Obstructive sleep apnea, patient on 2 L of oxygen by nasal cannula at night, and that as needed with exertion. He denies any fever, chills, nausea, vomiting, chest pain, back pain, headache. Patient complaining of productive cough of green sputum over the last 2 weeks. Patient denies COVID exposure, has been fully vaccinated and boosted for COVID-19. Patient have 7 days to go to finish the course of Cipro. Related Data Home Medications Medication Instructions Recorded Confirmed albuterol sulfate 2.5 mg/3 mL 2.5 mg inhalation Q4-6H PRN SOB 03/03/21 01/11/22 (0.083 %) solution for nebulization albuterol sulfate 90 mcg/actuation 1 puff inhalation Q4H PRN Wheezing 03/03/21 01/11/22 aerosol inhaler (Ventolin HFA) apixaban 2.5 mg tablet (Eliquis) 2.5 mg PO BID 03/03/21 01/11/22 atorvastatin 40 mg tablet 40 mg PO QHS 03/03/21 01/11/22 clopidogrel 75 mg tablet 75 mg PO DAILY 03/03/21 01/11/22 tiotropium bromide 2.5 2 puff inhalation DAILY 03/03/21 01/11/22 mcg/actuation mist for inhalation (Spiriva Respimat) acetaminophen 500 mg tablet 500 mg PO Q6H PRN Moderate Pain 06/02/21 01/11/22 (Scale Score 5-6) Adults Multivitamin 1 tablet PO DAILY 07/17/21 01/11/22 melatonin 5 mg tablet 5 mg PO HS 07/17/21 01/11/22 polyethylene glycol 3350 17 gram 17 g PO DAILY 07/17/21 01/11/22 oral powder packet (Miralax) tamsulosin 0.4 mg capsule 0.8 mg PO QPM 07/17/21 01/11/22 fluticasone 500 mcg-salmeterol 50 1 inh inhalation Q12H 10/12/21 01/11/22 mcg/dose blistr powdr for inhalation (Elliott Inhub) carvedilol 25 mg tablet 25 mg PO TID 01/11/22 01/11/22 cilostazol 100 mg tablet 100 mg PO BID 01/11/22 01/11/22 clonidine HCl 0.1 mg tablet 0.1 mg PO BID 01/11/22 01/11/22 lidocaine 5 % topical patch 1 patch topical .PRN 01/11/22 01/11/22 pantoprazole 40 mg tablet,delayed 40 mg PO DAILY 01/11/22 01/11/22 release Allergies Allergy/AdvReac Type Severity Reaction Status Date / Time No Known Allergies Allergy Verified 04/03/22 13:41 Review of Systems Review of Systems: All systems reviewed & are unremarkable except as noted in HPI and below PMFSH Past Medical History Medical History Anemia Arthritis AV block Status post Medtronic pacemaker placement. Benign prostatic hyperplasia CHF exacerbation Chronic anemia Chronic kidney disease, stage 3 COPD with emphysema COVID-19 (04/2020) Diastolic CHF Eczema Empyema of left pleural space (05/2021) Pleural fluid grew out strep intermedius in staph hominis. Status post thoracotomy with decortication. Gastroesophageal reflux disease Hypertension Obstructive sleep apnea On 2 L nasal cannula at nighttime. Peripheral vascular disease Status post right carotid endarterectomy. Status post left lower extremity stent. Psoriasis Urinary retention Surgical History Surgical History AICD (automatic cardioverter/defibrillator) present History of herniorrhaphy History of hip replacement Bilaterally with revision History of right-sided carotid endarterectomy History of thoracotomy (05/2021) Left thoracotomy with decortication for empyema. History of tonsillectomy Status post peripheral artery angioplasty with insertion of stent Left lower extremity. Status post placement of cardiac pacemaker (06/2020) Family Histo
[2022-04-03 13:24] LABS: Alveolar/Arterial O2 Gradient 21.6 mmHg; Base Excess ABG 0.6 mEq/l (+/-2.0); Fractional Inspired Oxygen 21 %; HCO3 ABG 25.6 mEq/l (22.0-26.0); Oxygen Content ABG 15.5 %vol (16.0-22.0); Oxygen Saturation ABG 95.4 % (95.0-100.0); Oxyhemoglobin 94.9 % THb (90.0-100.0); PCO2 ABG 42.5 mmHg (35.0-45.0); PO2 ABG 77.2 mmHg (80.0-100.0); PO2 FiO2 Ratio Arterial Blood 3.68 %; Total Hemoglobin 11.6 g/dL (12.0-18.0); pH ABG 7.397 (7.350-7.450)
[2022-04-03 13:25] LABS: Device ROOM AIR; Modified Allen's Test Pass; Site Drawn LEFT RADIAL
[2022-04-03 13:32] LABS: Basophils Percent Auto 0.5 % (0.2-1.2); Eosinophils Absolute Auto 0.6 K/mm3 (0-0.3); Eosinophils Percent Auto 7.3 % (0-4.4); Hematocrit 36.8 % (42.0-52.0); Hemoglobin 10.8 g/dL (14.0-18.0); Immature Granulocyte Absolute 0.03 K/mm3 (0.00-0.031); Immature Granulocyte Percent A 0.4 % (0-0.5); Lymphocytes Absolute Auto 0.87 K/mm3 (0.9-3.2); Lymphocytes Percent Auto 11.2 % (18.3-44.2); Mean Corpuscular HGB Conc 29.3 g/dl (32-36); Mean Corpuscular Hemoglobin 25.8 pg (26-34); Mean Platelet Volume 9.7 fl (7.4-10.4); Monocytes Absolute Auto 0.6 K/mm3 (0.1-0.6); Monocytes Percent Auto 7.4 % (2.6-8.5); Neutrophils Absolute Auto 5.7 K/mm3 (1.3-6.7); Neutrophils Percent Auto 73.2 % (45.5-73.1); Platelet Count Result 262 k/mm3 (150-375); Red Blood Count 4.18 M/mm3 (4.6-6.20); Red Cell Distribution Width 14.1 % (11.5-14.5); White Blood Count 7.8 K/mm3 (4.5-10.0)
[2022-04-03 13:43] LABS: INR 1.4; Prothrombin Time 16.8 Seconds (11.1-14.7)
[2022-04-03 13:44] LABS: Partial Thromboplastin Time 45.1 SECONDS (22.3-36.8)
[2022-04-03 13:45] LABS: Alanine Aminotransferase 12 U/L (6-50); Albumin Level 3.9 g/dL (3.5-5.1); Alkaline Phosphatase 101 U/L (38-126); Anion Gap 8 mmol/L (8-16); Anisocytosis 1+ (NORMAL); Aspartate Amino Transferase 26 U/L (17-59); Bilirubin,Total 0.4 mg/dL (0.2-1.3); Blood Urea Nitrogen 27 mg/dL (9-20); Calcium 8.5 mg/dL (8.4-10.2); Carbon Dioxide 29 mmol/L (22-30); Chloride 103 mmol/L (98-107); Estimated CRCL calculation 38 ml/min; Estimated Glomerular Filt Rate 37; Glucose 108 mg/dL (65-110); Hypochromasia 1+ (NORMAL); Magnesium 1.7 mg/dL (1.6-2.3); Ovalocytes 1+ (NORMAL); Platelet Estimate Adequate (Adequate); Potassium 4.4 mmol/L (3.4-5.0); Sodium 140 mmol/L (137-145)
[2022-04-03 13:56] LABS: NT Pro B Type Natriuretic Pept 931 pg/mL (5-100); Troponin I < 0.012 ng/mL (0.000-0.034)
[2022-04-03 14:09] LABS: SARS-CoV-2 RNA PCR Negative
[2022-04-03] MEDS: methylPREDNISolone SOD SUCC 125 MG VIAL IV PUSH (14:26)
== END 2022-04-03 16:15 | disposition home or self-care (01) ==
PROVIDERS: Emergency Provider Emergency Medicine; PCP Family Medicine
DX: J44.1 Chronic obstructive pulmonary disease with (acute) exacerbation (principal); Z20.822 Contact with and (suspected) exposure to COVID-19; I48.91 Unspecified atrial fibrillation; G47.33 Obstructive sleep apnea (adult) (pediatric); Z99.81 Dependence on supplemental oxygen; I13.0 Hypertensive heart and chronic kidney disease with heart failure and stage 1 through stage 4 chronic kidney disease, or unspecified chronic kidney disease; N18.30 Chronic kidney disease, stage 3 unspecified; I50.30 Unspecified diastolic (congestive) heart failure; D64.9 Anemia, unspecified; I73.9 Peripheral vascular disease, unspecified; N40.0 Benign prostatic hyperplasia without lower urinary tract symptoms; M19.90 Unspecified osteoarthritis, unspecified site; K21.9 Gastro-esophageal reflux disease without esophagitis; Z95.5 Presence of coronary angioplasty implant and graft; Z95.810 Presence of automatic (implantable) cardiac defibrillator; Z96.643 Presence of artificial hip joint, bilateral; Z87.891 Personal history of nicotine dependence; Z79.01 Long term (current) use of anticoagulants; I44.0 Atrioventricular block, first degree
CPT/HCPCS: 36415; 36600; 71045; 80053; 82805; 83735; 83880; 84484; 85025; 85610; 85730; 87040; 93005; 94640; 96374; 99284; C9803; J2930; U0003; U0005

== ENCOUNTER 2022-04-08 13:00 | Outpatient (CLI) | payer OTHER, SELFPAY ==
--- NOTE | ~2022-04-08 | XR_ITS ---
XR chest 2V 04/08/2022 13:19 Indication: Shortness of breath. COPD. Procedure: 2 view chest Comparison: Comparison to multiple prior studies sequentially, with oldest reviewed study dated 05/22. Findings: Heart size normal. Pacemaker leads in expected position. There is atherosclerosis. There ar e chronic infiltrates of the left lung base, most likely atelectasis/scarring. No acute focal pneumon ia, edema or effusion. Impression: 1: No acute cardiopulmonary disease. 2: Chronic left basilar atelectasis/scarring. Reviewed, dictated and finalized at location B. Impression: 1: No acute cardiopulmonary disease. 2: Chronic left basilar atelectasis/scarring.
== END 2022-04-08 13:01 | disposition home or self-care (01) ==
LOC: ANHIMG 13:03
PROVIDERS: PCP Family Medicine; Visit Provider Family Medicine
DX: J44.1 Chronic obstructive pulmonary disease with (acute) exacerbation (principal); R91.8 Other nonspecific abnormal finding of lung field
CPT/HCPCS: 71046

== ENCOUNTER 2022-05-15 13:00 | Inpatient (IN) | payer MEDICARE, OTHER, SELFPAY ==
[2022-05-15] VITALS (23 sets, daily range): BP systolic 71–105; BP diastolic 44–63; PULSE 81–115; RESP 18–31; TEMP 36.6–39.2; O2SAT 93–100; BMI 31.8
--- NOTE | ~2022-05-15 | XR_ITS ---
EXAMINATION: XR barium swallow modified DATE: 05/20/2022 09:07 INDICATION: Dysphagia. TECHNIQUE: The patient was given barium-containing material of multiple consistencies to swallow by t he speech pathologist while I performed fluoroscopy. Fluoroscopy exposure time was 2.8 minutes. The n umber of fluoroscopy images saved to the PACS was 1. Dose-area product was 2.716 Gy-cm^2. FINDINGS: There was reduced laryngeal elevation. There was laryngeal penetration and aspiration. IMPRESSION: 1. Laryngeal penetration and aspiration. 2. Please refer to the speech therapy report for recommendations. Reviewed, dictated and finalized at location A.
--- NOTE | ~2022-05-15 | XR_ITS ---
XR chest 1V portable 05/15/2022 13:43 Indication: Cough and shortness of breath Procedure: AP portable chest Comparison: Comparison to multiple prior studies sequentially, with oldest reviewed study dated 05/22. Findings: Heart size normal. Pacemaker leads are stable. Bibasilar infiltrates are likely chronic. Th ere is small left pleural effusion versus pleural thickening. Impression: 1: Bibasilar infiltrates, most likely chronic atelectasis/scarring. Reviewed, dictated and finalized at location A. Impression: 1: Bibasilar infiltrates, most likely chronic atelectasis/scarring.
--- NOTE | ~2022-05-15 | CT_ITS ---
EXAMINATION: CT abdomen pelvis wo con DATE: 05/15/2022 15:42 INDICATION: Right upper quadrant abdominal pain TECHNIQUE: Computed tomography (CT) of the abdomen and pelvis was performed without intravenous contr ast. Automated exposure control and iterative reconstruction technique were employed. Exam dose: 603 .34 mGy-cm total exam DLP. COMPARISON: 02/08/2022 bilateral renal ultrasound examination 09/30/2021 CT abdomen pelvis FINDINGS: Chronic discoid atelectasis and/or scarring involving primarily the lower lobes and the bas e of the lingula. Heart size is within normal range. Cardiac pacemaker leads are again noted. Small sliding hiatal hernia. The liver, spleen, pancreas, and adrenal glands are unremarkable on this limited noncontrast examinat ion. Stable approximately 11 x 13.6 mm hyperdense exophytic lesion at the superior pole of the left kidney , likely a hyperdense cyst. Stable approximately 8 mm medial superior pole right exophytic hyperdense lesion, also likely a hyperdense cyst. No significant new or developing renal mass is evident on this limited noncontrast examination. Again noted is a prominent nonobstructing lower pole right renal calculus, present on 09/30/2021 as wel l. No other urinary tract calculus or hydroureteronephrosis is evident. There is chronic right renal scarring and atrophy involving particularly the lower pole. Stable mild abdominal aortic aneurysm, with extensive calcification of the abdominal aorta, celiac ar tone and particularly severe atherosclerotic calcification of the superior mesenteric artery. Bilater al common iliac artery aneurysms appear stable, in addition to severe calcification of the iliac and femoral arteries. There is evidence of prostate calcifications and probable prostate enlargement but much of the prosta te portions of the pelvic structures are obscured by extensive streak artifact from bilateral hip rep lacements. There is diffuse thickening of the urinary bladder wall, likely due to bladder outlet obst ruction or possibly cystitis. The thickening of the urinary bladder wall is substantially increased c ompared to . Diverticulosis of the left colon; no CT evidence of diverticulitis. Normal appendix. No bowel obstruc tion or intraperitoneal free air. Status post ventral abdominal wall surgical repair. Bilateral L5 pars and articularis defects with grade 1 anterolisthesis at L5-S1. Degenerative changes of the lower thoracic spine. Osteopenia. IMPRESSION: Small sliding hiatal hernia Bilateral probable renal cysts. Left renal scarring and atrophy Stable aneurysm of the abdominal aorta and common iliac arteries, severe atherosclerotic calcificatio n again noted Diverticulosis of the colon; no CT evidence of diverticulitis Normal appendix Dominant thickening of the urinary bladder wall since 10/10/2021 Prostate enlargement and calcifications Status post bilateral total hip replacement Bilateral L5 pars interarticularis defects with grade 1 anterolisthesis at L5-S1 Reviewed, dictated and finalized at Location A. Reviewed, dictated and finalized at location A. IMPRESSION: Small sliding hiatal hernia Bilateral probable renal cysts. 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
--- NOTE | ~2022-05-15 | XR_ITS ---
EXAMINATION: XR chest 1V portable DATE: 05/18/2022 06:13 INDICATION: Pneumonia. TECHNIQUE: A single frontal view of the chest was obtained. COMPARISON: Chest single view 05/15/2022, chest CT 05/15/2022 FINDINGS: There is scarring in left lateral costophrenic angle. There are airspace opacities in the l ower lung zones. There are lucencies and interstitial opacities in the lungs, consistent with emphyse ma. No pleural effusion or pneumothorax. The heart size is normal. There is a left chest wall pacer w ith leads in the right atrium and right ventricle. IMPRESSION: 1. Airspace opacities in the lower lung zones with worsening on the left, consistent with atelectasis /scarring versus pneumonia. 2. Emphysema. Reviewed, dictated and finalized at location A. IMPRESSION: 1. Airspace opacities in the lower lung zones with worsening on the left, consi stent with atelectasis/scarring versus pneumonia. 2. Emphysema.
--- NOTE | ~2022-05-15 | US_ITS ---
EXAMINATION: US soft tissue head and neck DATE: 05/25/2022 09:59 INDICATION: Right neck mass. TECHNIQUE: Multiple grayscale and Doppler ultrasound images of the neck were obtained. COMPARISON: Chest CT 05/15/2022 FINDINGS: There are normal-sized lymph nodes in right neck. IMPRESSION: 1. Normal lymph nodes in right neck. Reviewed, dictated and finalized at location B.
--- NOTE | ~2022-05-15 | US_ITS ---
US renal BI 05/16/2022 11:30 Procedure: Realtime transabdominal ultrasound of the kidneys and bladder. Indication: Renal failure Comparison: Ultrasound dated 02/08/2022 Findings: Renal echotexture is normal bilaterally without hydronephrosis, contour deforming mass or r enal calculus. The right kidney measures 10.7 cm and left kidney measures 9.2 cm. Bladder within nor mal limits. Impression: 1: Unremarkable renal ultrasound. No stones, masses or hydronephrosis. Reviewed, dictated and finalized at location A. Impression: 1: Unremarkable renal ultrasound. No stones, masses or hydronephrosis.
--- NOTE | ~2022-05-15 | XR_ITS ---
EXAMINATION: XR UGI w barium swallow DATE: 05/19/2022 14:00 INDICATION: Dysphagia TECHNIQUE: The patient drank thick barium. Fluoroscopy of the esophagus, stomach, and proximal small bowel were performed. Fluoroscopy exposure time was 2.8 minutes. The DAP for this procedure was 29.09 9 Gycm2. COMPARISON: None. FINDINGS: There is no mass or stricture of the esophagus. There is some vallecular and piriform sinus residue. Presbyesophagus is noted. There is mild delayed emptying of esophageal contents into the st omach. There is no hiatal hernia. There was a moderate volume of spontaneous gastroesophageal reflux. The stomach and proximal small bowel show normal folding patterns. IMPRESSION: 1. Presbyesophagus with mild delay in emptying of esophageal contents into the stomach. 2. Moderate volume of spontaneous gastroesophageal reflux. 3. Vallecular and piriform sinus residue. Consider speech therapy evaluation and modified barium swal low. Reviewed, dictated and finalized at location A. IMPRESSION: 1. Presbyesophagus with mild delay in emptying of esophageal contents into the stomach. 2. Moderate volume of spontaneous gastroesophageal reflux. 3. Vallecular and piriform sinus residue. Consider speech therapy evaluation an d modified barium swallow.
--- NOTE | ~2022-05-15 | CT_ITS ---
EXAMINATION: CT diagnostic chest wo con DATE: 05/15/2022 19:23 INDICATION: Shortness of breath, new cough TECHNIQUE: Computed tomography (CT) of the chest was performed without intravenous contrast. Automate d exposure control and iterative reconstruction technique were employed. Exam dose: 433.72 mGy-cm to yara exam DLP. COMPARISON: 05/11/2022 portable AP chest 04/08/2022 2 view chest 04/03/2022 portable AP chest 07/22/2021 CT chest 07/17/2021 2 view chest FINDINGS: There is moderately severe emphysema. Chronic mild right apical and posterolateral left upp er lung scarring. Minimal focal new posterior lateral right upper lobe infiltrate or atelectasis. Superior segment left lower lobe calcified pulmonary granuloma. Chronic left lower lobe discoid atelectasis and possible scarring, mildly improved since 07/22/2021. T here is resolution left pleural effusion since 07/22/2021. New approximately 7.5 mm superior segment right lower lobe nodular density since 07/22/2021 (series 4 image 66). There is discoid atelectasis//or scarring in the basilar right lower lobe. New minimal focal patchy infiltrate in the base of the middle lobe. Mild discoid atelectasis or scarring in the lingula. Heart size is normal. No pericardial effusion. Left-sided transvenous pacemaker device with leads in right atrium and the upper posterior aspect of right ventricle. Prominent coronary artery calcificati ons. Up to approximately 3.5 cm thoracic aortic arch aneurysm. There is extensive calcification of the tho racic aorta. Up to 9.7 x 20 mm precarinal lymph nodes, mildly improved since 07/22/2021. Small sliding hiatal hernia Mild bilateral adrenal hypertrophy is suggested. No suspicious osteolytic or osteoblastic lesions. IMPRESSION: Moderately severe emphysema Patchy infiltrates, atelectasis and/or scarring scattered in both lungs, with improvement in the left lower lobe since 07/22/2021 but significant new occasional patchy infiltrates in the right upper lobe , middle lobe, lingula and new 7 mm nodular density, right lower lobe Reviewed, dictated and finalized at Location A. Reviewed, dictated and finalized at location A. IMPRESSION: Moderately severe emphysema Patchy infiltrates, atelectasis and/or scarring scattered in both lungs, with i mprovement in the left lower lobe since 07/22/2021 but significant new occasiona l patchy infiltrates in the right upper lobe, middle lobe, lingula and new 7 mm nodular density, right lower lobe
--- NOTE | ~2022-05-15 | XR_ITS ---
EXAMINATION: XR chest port-a-cath/central DATE: 05/25/2022 11:14 INDICATION: Central line placement. TECHNIQUE: A single frontal view of the chest was obtained. COMPARISON: Chest single view 05/19/2022, chest CT 05/15/2022 FINDINGS: There is mild atelectasis at the lung bases. There is chronic blunting of left lateral cost ophrenic angle, consistent with scarring. No pleural effusion or pneumothorax. The heart size is norm al. There is a left chest wall pacer with leads in the right atrium and right ventricle. A right inte rnal jugular central venous catheter is seen with tip in the superior vena cava. There are surgical c lips in right neck. IMPRESSION: 1. Central line tip in superior vena cava. 2. Mild atelectasis at right lung base and mild atelectasis and scarring at left lung base. Reviewed, dictated and finalized at location B. IMPRESSION: 1. Central line tip in superior vena cava. 2. Mild atelectasis at right lung base and mild atelectasis and scarring at lef t lung base.
--- NOTE | ~2022-05-15 | XR_ITS ---
EXAMINATION: XR chest 1V portable DATE: 05/19/2022 05:57 INDICATION: Pneumonia. TECHNIQUE: A single frontal view of the chest was obtained. COMPARISON: Chest single view 05/18/2022, chest CT 05/15/2022 FINDINGS: There are lucencies and interstitial opacities in the lungs, consistent with emphysema. The re are mild airspace opacities in right lower lung zone and left mid and lower lung zones. There is c hronic blunting of left lateral costophrenic angle, likely scarring. No pneumothorax. The heart size is normal. There is a left chest wall pacer with leads in the right atrium and right ventricle. There are surgical clips in right neck. IMPRESSION: 1. Airspace opacities in right lower lung zone and left mid and lower lung zones with improvement on the left, consistent with atelectasis/scarring versus pneumonia. 2. Emphysema. Reviewed, dictated and finalized at location A. IMPRESSION: 1. Airspace opacities in right lower lung zone and left mid and lower lung zone s with improvement on the left, consistent with atelectasis/scarring versus pne umonia. 2. Emphysema.
--- NOTE | 2022-05-15 13:20 | ECG_ITS ---
Measurements Intervals [place] Rate: 111 P: 49 [place]: 207 QRS: 3 QRSD: 116 T: 145 QT: 302 QTc: 412 Interpretive Statements ATRIAL SENSE- ELECTRONIC VENTRICULAR PACEMAKER UNDERLYING SINUS TACHYCARDIA BASELINE ARTIFACT- II, III, AVR, AVL, AVF NO FURTHER INTERPRETATION IS POSSIBLE ABNORMAL ECG COMPARED TO ECG 04/03/2022 13:12:18 HEART RATE HAS INCREASED Electronically Signed On 05-15-2022 18:22:36 CDT by Juan David George D.O.
[2022-05-15] MEDS: SODIUM CHLORIDE 0.9% IV 1,000 ML 999 ML IV CONT ×2 (14:08→17:00)
[2022-05-15 14:23] LABS: Hematocrit 39.7 % (42.0-52.0); Mean Corpuscular HGB Conc 30.2 g/dl (32-36); Mean Corpuscular Hemoglobin 26.7 pg (26-34); Mean Corpuscular Volume 88.2 fl (80-100); Platelet Count Result 126 k/mm3 (150-375); Red Cell Distribution Width 17.5 % (11.5-14.5); White Blood Count 8.9 K/mm3 (4.5-10.0)
[2022-05-15 14:30] LABS: Influenza A QL RT-PCR Negative (Negative); Influenza B QL RT-PCR Negative (Negative); SARS-CoV-2 RNA PCR Negative
[2022-05-15 14:33] LABS: INR 2.1; Lactic Acid Reflex 3.6 mmol/L (0.7-2.0)
[2022-05-15 14:34] LABS: Partial Thromboplastin Time 53.2 SECONDS (22.3-36.8)
[2022-05-15 14:37] LABS: Alanine Aminotransferase 176 U/L (6-50); Albumin Level 3.5 g/dL (3.5-5.1); Alkaline Phosphatase 243 U/L (38-126); Anion Gap 11 mmol/L (8-16); Aspartate Amino Transferase 444 U/L (17-59); Bilirubin,Total 1.3 mg/dL (0.2-1.3); Blood Urea Nitrogen 44 mg/dL (9-20); CRP 2.6 mg/dL (<1.0); Calcium 8.6 mg/dL (8.4-10.2); Carbon Dioxide 23 mmol/L (22-30); Chloride 110 mmol/L (98-107); Estimated CRCL calculation 22 ml/min; Estimated Glomerular Filt Rate 22; Glucose 64 mg/dL (65-110); Potassium 3.8 mmol/L (3.4-5.0); Sodium 144 mmol/L (137-145)
[2022-05-15 14:43] LABS: NT Pro B Type Natriuretic Pept 5280 pg/mL (5-100)
[2022-05-15 15:05] LABS: Platelet Estimate Decreased (Adequate)
[2022-05-15 15:06] LABS: Band Neutrophils Percent 27 % (0-6); Eosinophils Absolute Manual 0.08 K/mm3 (0.02-0.5); Eosinophils Percent Manual 1 % (0-4); Lymphocytes Absolute Manual 0.08 K/mm3 (1.1-4.5); Lymphocytes Percent Manual 1 % (18-44); Monocytes Absolute Manual 0.17 K/mm3 (0.1-0.90); Monocytes Percent Manual 2 % (3-9); Neutrophils Absolute Manual 8.01 K/mm3 (1.3-6.7); Neutrophils Percent Manual 63 % (46-73)
[2022-05-15 15:07] LABS: Basophils Absolute Manual 0.08 K/mm3 (0.0-0.1); Basophils Percent Manual 1 % (0-1)
[2022-05-15 15:08] LABS: Anisocytosis 1+ (NORMAL); Ovalocytes 1+ (NORMAL)
[2022-05-15 15:11] LABS: Schistocytes None Seen (NORMAL)
[2022-05-15 16:52] LABS: Bacteria Urine Trace /hpf; Mucus Urine Rare /lpf; RBC Urine 21-50 /hpf (0-2); Squamous Epithelial Cell Urine Rare /hpf (Few); WBC Urine 16-20 /hpf
[2022-05-15 17:01] LABS: Add Urine Microscopic? YES; Appearance Urine Cloudy (Clear); Bilirubin Urine Negative (Negative); Blood Urine 2+ (Negative); Color Urine Yellow (Yellow); Glucose Urine UA Negative (Negative); Ketones Urine Negative (Negative); Leukocyte Esterase Ur 1+ LEU/UL (Negative); Nitrate Urine Negative (Negative); Protein Urine 2+ mg/dL (Negative); Specific Grav Ur 1.015 (1.001-1.035); Urobilinogen Urine 0.2 mg/dL (<2.0)
[2022-05-15 17:19] LABS: Reflex Lactic Acid Yes or No Add Lactic
--- NOTE | 2022-05-15 17:27 | ED.GENADULT ---
HPI - General Adult General Chief complaint: Shortness of Breath/Dyspnea Stated complaint: sob, weak, dizzy with standing Time Seen by Provider: 05/15/22 13:11 History of Present Illness HPI narrative: Patient is a 71-year-old man who presents ER with new cough and shortness of breath. Began today. Chronically O2 dependent on 2 L but increased it to 3 due to shortness of breath. Patient recently had a [place] catheter removed yesterday. He had undergone a TURP. Patient denies fevers or chills but his temperature here was found to be 102.6 Fahrenheit. He has no chest pain or chest pressure. No abdominal discomfort. Reports he is without any burning urination but he did notice some blood this morning after using the restroom. Related Data Home Medications Medication Instructions Recorded Confirmed albuterol sulfate 2.5 mg/3 mL 2.5 mg inhalation Q4-6H PRN SOB 03/03/21 05/15/22 (0.083 %) solution for nebulization albuterol sulfate 90 mcg/actuation 1 puff inhalation Q4H PRN Wheezing 03/03/21 05/15/22 aerosol inhaler (Ventolin HFA) atorvastatin 40 mg tablet 80 mg PO QHS 03/03/21 05/15/22 clopidogrel 75 mg tablet 75 mg PO HS 03/03/21 05/15/22 tiotropium bromide 2.5 2 puff inhalation HS 03/03/21 05/15/22 mcg/actuation mist for inhalation (Spiriva Respimat) acetaminophen 500 mg tablet 500 mg PO Q6H PRN Moderate Pain 06/02/21 05/15/22 (Scale Score 5-6) polyethylene glycol 3350 17 gram 17 g PO DAILY PRN Constipation 07/17/21 05/15/22 oral powder packet (Miralax) tamsulosin 0.4 mg capsule 0.8 mg PO DAILY 07/17/21 05/15/22 fluticasone 500 mcg-salmeterol 50 1 inh inhalation Q12H 10/12/21 05/15/22 mcg/dose blistr powdr for inhalation (Carlitoxela Inhub) carvedilol 25 mg tablet 25 mg PO TID 01/11/22 05/15/22 clonidine HCl 0.1 mg tablet 0.1 mg PO BID 01/11/22 05/15/22 pantoprazole 40 mg tablet,delayed 40 mg PO DAILY 01/11/22 05/15/22 release amlodipine 10 mg tablet 10 mg PO DAILY 05/15/22 05/15/22 doxepin 25 mg capsule 25 mg PO QHS PRN Sleep 05/15/22 05/15/22 gabapentin 300 mg capsule 300 mg PO HS PRN Pain 05/15/22 05/15/22 potassium chloride 10 mEq 10 meq PO HS 05/15/22 05/15/22 capsule,extended release rivaroxaban 2.5 mg tablet (Xarelto) 2.5 mg PO BID 05/15/22 05/15/22 Allergies Allergy/AdvReac Type Severity Reaction Status Date / Time No Known Allergies Allergy Verified 05/15/22 16:26 Review of Systems Review of Systems: All systems reviewed & are unremarkable except as noted in HPI and below Constitutional: Constitutional: Denies chills, Reports fatigue and Denies fever(s) ENT: Denies nasal congestion and Denies sore throat Cardiovascular: Cardiovascular: Denies chest pain, Denies rapid heart rate and Denies radiating jaw, neck or arm pain Respiratory: Respiratory: Reports cough, Reports dyspnea and Denies wheezing Gastrointestinal: Gastrointestinal: Denies abdominal pain, Denies diarrhea, Denies nausea and Denies vomiting Genitourinary: Genitourinary: Reports hematuria, Denies dysuria and Denies urinary frequency Neurologic: Denies headache(s) [facility] Past Medical History Medical History Arthritis AV block Status post Medtronic pacemaker placement. Benign prostatic hyperplasia Chronic anemia Chronic anemia Chronic kidney disease, stage 3 COPD with emphysema COVID-19 (04/2020) Eczema Empyema of left pleural space (05/2021) Pleural fluid grew out strep intermedius and staph hominis. Status post thoracotomy with decortication. Gastroesophageal reflux disease Heart failure with preserved ejection fraction Echocardiogram in November 2021 showed normal LV size and function with an EF measured at 66% and impaired diastolic relaxation. Hypertension Obstructive sleep apnea On 2 L nasal cannula at nighttime. Peripheral vascular disease Status post right carotid endarterectomy. Status post left lower extremity stent. Psoriasis Urethral stricture S
[2022-05-15 17:55] LABS: Lactic Acid 2.9 mmol/L (0.7-2.0)
[2022-05-15] MEDS: SODIUM CHLORIDE 0.9% IV 1,000 ML 125 ML IV CONT (19:10)
--- NOTE | 2022-05-15 20:30 | ADMGEN ---
This patient, Freddy Hill, was admitted to Intensive Care Unit-10. Patient/family oriented to hospital policies and general routines including ID bracelet, bed and alarms, visiting hours, pain management, procedures, bathroom and other care routines, personal items, smoking policy, room service/diet, and visiting hours. Information on how to activate the Rapid Response Team has been discussed. Patient/Family are encouraged to report perceived risks to care and to ask questions if they do not understand what they are told or what they should do.
--- NOTE | 2022-05-15 21:00 | PM.IMHP ---
H&P: HPI History of Present Illness Date/Time: 05/15/22 21:00 Chief Complaint: Weakness and shortness of breath. Narrative: This is a very pleasant 71-year-old male with multiple medical problems including history of left empyema status post decortication, hypertension, peripheral vascular disease, sleep apnea on nocturnal oxygen, chronic obstructive pulmonary disease, chronic kidney disease, and several other comorbidities who presented to the emergency department via EMS from home for evaluation of weakness and shortness of breath. About a week ago he had a procedure for what sounds like urethral stricture done at [facility]. He has been doing okay since that time up until the last few days when he has developed an increasing cough from baseline, now with purulence sputum which he describes as light green/yellow in color. He has also felt increasingly short of breath from baseline and in fact he has been using the oxygen that he uses at nighttime during the day to help with the shortness of breath. Upon waking this morning he felt extremely weak, dizzy, and it sounds like he had uncontrolled shakes. His appetite has not been great for the last 24 hours but he denies nausea and vomiting. No diarrhea or dysuria. He denies sick contacts. His temperature was 102.6? F on arrival to the ER and his blood pressures have been persistently in the upper 80s to low 90 systolic with MAPs stable between 60 and 70. Workup done in the ED was significant for a normal white blood cell count with 27% bands on manual differential, stable anemia, an increase in BUN and creatinine from baseline, elevated lactic acid level, and transaminitis. CT of the abdomen and pelvis did not show any acute findings. Chest CT showed patchy infiltrates in the lungs and he has since been started on IV antibiotics for presumed pneumonia. He has been admitted to the ICU due to persistently low blood pressures, with consideration for possible central line insertion for vasopressors. Review of Systems Review of Systems: Twelve systems were reviewed. No headache or neck ache. He denies sinus congestion sore throat. No known sick contacts. No chest or pleuritic pain. He denies hemoptysis. Appetite has been poor. No nausea, vomiting, or diarrhea. He denies dysuria, still has occasional mild blood in his urine since urethral dilation earlier on in the week. Except as documented, all other systems were reviewed and are negative. [facility] Past Medical History Medical History (Updated 05/15/22 @ 21:38 by Na De Santiago PA-C) Arthritis AV block Status post Medtronic pacemaker placement. Benign prostatic hyperplasia Chronic anemia Chronic anemia Chronic kidney disease, stage 3 COPD with emphysema COVID-19 (04/2020) Eczema Empyema of left pleural space (05/2021) Pleural fluid grew out strep intermedius and staph hominis. Status post thoracotomy with decortication. Gastroesophageal reflux disease Heart failure with preserved ejection fraction Echocardiogram in November 2021 showed normal LV size and function with an EF measured at 66% and impaired diastolic relaxation. Hypertension Obstructive sleep apnea On 2 L nasal cannula at nighttime. Peripheral vascular disease Status post right carotid endarterectomy. Status post left lower extremity stent. Psoriasis Urethral stricture Surgical History Surgical History AICD (automatic cardioverter/defibrillator) present History of dilation of urethra History of herniorrhaphy History of hip replacement Bilaterally with revision History of right-sided carotid endarterectomy History of thoracotomy (05/2021) Left thoracotomy with decortication for empyema. History of tonsillectomy Status post peripheral artery angioplasty with insertion of stent Left lower extremity. Status post placement of cardiac pacemaker (06/2020) Family History Family History (Reviewed
[2022-05-15] MEDS: ACETAMINOPHEN 325 MG TABLET 650 MG PO (22:01)
[2022-05-15] MEDS: LACTATED RINGERS 1,000 ML 999 ML IV CONT ×2 (22:16→23:12)
[2022-05-16] VITALS (20 sets, daily range): BP systolic 100–136; BP diastolic 59–100; PULSE 84–108; RESP 22–34; TEMP 36.6–37.7; O2SAT 91–100
[2022-05-16 01:29] LABS: Lactic Acid Reflex 2.7 mmol/L (0.7-2.0)
[2022-05-16 01:31] LABS: Albumin Level 2.5 g/dL (3.5-5.1); Alkaline Phosphatase 69 U/L (38-126); Anion Gap 11 mmol/L (8-16); Aspartate Amino Transferase 198 U/L (17-59); Bilirubin,Total 0.3 mg/dL (0.2-1.3); Blood Urea Nitrogen 40 mg/dL (9-20); Calcium 7.2 mg/dL (8.4-10.2); Carbon Dioxide 23 mmol/L (22-30); Chloride 107 mmol/L (98-107); Creatine Kinase 143 U/L (55-170); Estimated CRCL calculation 28 ml/min; Estimated Glomerular Filt Rate 26; Glucose 139 mg/dL (65-110); Magnesium 1.3 mg/dL (1.6-2.3); Potassium 3.3 mmol/L (3.4-5.0); Sodium 141 mmol/L (137-145)
[2022-05-16 01:36] LABS: Alanine Aminotransferase 124 U/L (6-50)
[2022-05-16 02:05] LABS: Procalcitonin > 100.0 ng/mL
[2022-05-16] MEDS: CLOPIDOGREL BISULFATE 75 MG TABLET PO ×2 (02:11→21:10)
[2022-05-16] MEDS: UMECLIDINIUM BROMIDE 62.5 MCG ELLIPTA 1 PUFF INHALATION ×2 (02:11→07:52)
[2022-05-16] MEDS: POTASSIUM CHLORIDE 20 MEQ TABLET PO (02:27)
[2022-05-16] MEDS: MAGNESIUM SULF 2 GM/WATER 50ML 2 GM/50 ML BAG IVPB (02:27)
[2022-05-16] MEDS: ALBUTEROL SULFATE NEB 2.5 MG/3 ML INH INHALATION ×5 (02:30→20:29)
[2022-05-16 05:41] LABS: Hematocrit 36.1 % (42.0-52.0); Hemoglobin 10.6 g/dL (14.0-18.0); Mean Corpuscular HGB Conc 29.4 g/dl (32-36); Mean Corpuscular Hemoglobin 26.8 pg (26-34); Mean Corpuscular Volume 91.2 fl (80-100); Mean Platelet Volume 9.8 fl (7.4-10.4); Platelet Count Result 100 k/mm3 (150-375); Red Blood Count 3.96 M/mm3 (4.6-6.20); Red Cell Distribution Width 17.5 % (11.5-14.5); White Blood Count 19.2 K/mm3 (4.5-10.0)
[2022-05-16 05:50] LABS: Alanine Aminotransferase 128 U/L (6-50); Alkaline Phosphatase 89 U/L (38-126); Anion Gap 9 mmol/L (8-16); Aspartate Amino Transferase 182 U/L (17-59); Bilirubin,Total 0.6 mg/dL (0.2-1.3); Blood Urea Nitrogen 44 mg/dL (9-20); Calcium 7.6 mg/dL (8.4-10.2); Carbon Dioxide 23 mmol/L (22-30); Chloride 110 mmol/L (98-107); Estimated CRCL calculation 29 ml/min; Estimated Glomerular Filt Rate 27; Glucose 83 mg/dL (65-110); Sodium 142 mmol/L (137-145)
[2022-05-16] MEDS: SODIUM CHLORIDE 0.9% IV 1,000 ML 125 ML IV CONT (05:52)
[2022-05-16 06:48] LABS: Band Neutrophils Percent 27 % (0-6); Lymphocytes Absolute Manual 0.38 K/mm3 (1.1-4.5); Metamyelocytes Percent 2 %; Monocytes Absolute Manual 0.38 K/mm3 (0.1-0.90); Monocytes Percent Manual 2 % (3-9); Neutrophils Absolute Manual 18.04 K/mm3 (1.3-6.7); Neutrophils Percent Manual 67 % (46-73); Total Cells Counted 100
[2022-05-16 06:49] LABS: Anisocytosis 1+ (NORMAL); Ovalocytes 1+ (NORMAL); Platelet Estimate Decreased (Adequate); Schistocytes None Seen (NORMAL)
[2022-05-16 06:50] LABS: Burr Cells 1+ (NORMAL)
[2022-05-16] MEDS: FLUTICASONE/SALMETEROL 230-21 MCG INHALER 1 PUFF 2 PUFF INHALATION ×2 (07:52→20:29)
--- NOTE | 2022-05-16 08:31 | WPDCNINT ---
Assessment and Plan Assessment and plan (1) Sepsis: Code(s): A41.9 - Sepsis, unspecified organism Status: Acute Assessment and Plan: Sepsis secondary to pneumonia and UTI Blood sputum urine cultures have been sent and are pending Urine Legionella pneumococcal antigen are pending Mycoplasma IgM is pending On empiric cefepime and azithromycin Patient received aggressive volume resuscitation on admission blood pressure has been adequate overnight. Will decrease IV fluids at this time (2) Pneumonia: Code(s): J18.9 - Pneumonia, unspecified organism Status: Acute Assessment and Plan: See above (3) Urinary tract infection: Code(s): N39.0 - Urinary tract infection, site not specified Status: Acute Assessment and Plan: See above (4) Acute on chronic kidney failure: Code(s): N17.9 - Acute kidney failure, unspecified; N18.9 - Chronic kidney disease, unspecified Status: Acute Assessment and Plan: Patient has chronic kidney disease with best recorded creatinine is 1.7. He presented with creatinine of 2.9. CT scan does not show any hydronephrosis renal ultrasound has been ordered at the time of admission and is pending Continue IV fluids but decrease rate Normal CK level Check urine electrolytes If does not improve, will consult nephrology (5) Heart failure with preserved ejection fraction: Code(s): I50.30 - Unspecified diastolic (congestive) heart failure Status: Acute Assessment and Plan: Decrease IV fluid (6) Hypotension: Code(s): I95.9 - Hypotension, unspecified Status: Acute Assessment and Plan: Patient presented with hypotension which is likely secondary to sepsis. Now resolved with IV fluids. He has not required any vasopressors and blood pressure is adequate at this time. Continue to monitor (7) Acute exacerbation of chronic obstructive pulmonary disease: Code(s): J44.1 - Chronic obstructive pulmonary disease with (acute) exacerbation Status: Acute Assessment and Plan: Patient appears to be in mild exacerbation of COPD. He has lip pursing and has some wheezing going on exam. Continue bronchodilators Will start Solu-Medrol At this point patient states he feels okay with his oxygen on and does not want to try CPAP or BiPAP. He states that he feels more comfortable with oxygen on and this is not something he has not used to.. Continue to monitor. (8) Urethral stricture: Code(s): N35.919 - Unspecified urethral stricture, male, unspecified site Status: Acute Assessment and Plan: Daily straight cath Bladder scan (9) Benign prostatic hyperplasia: Code(s): N40.0 - Benign prostatic hyperplasia without lower urinary tract symptoms Status: Acute Assessment and Plan: Continue Flomax Bladder scan to assess for any retention CT scan did not show any hydronephrosis (10) Obstructive sleep apnea: Code(s): G47.33 - Obstructive sleep apnea (adult) (pediatric) Status: Chronic Assessment and Plan: Continue oxygen as per patient's home use. He he states that he does not like you wear CPAP. Plan DVT prophylaxis -continue home Xarelto Stress ulcer prophylaxis -continue home PPI Nutrition -diet ordered Code Status - Full Code Improvement Specialist Consult Note Consult date: 05/16/22 Reason for consult: Sepsis HPI: Freddy Hill is a 71 year old male with multiple medical problems including history of left severe emphysema status post decortication, hypertension, peripheral vascular disease, sleep apnea on nocturnal oxygen, chronic obstructive pulmonary disease, chronic kidney disease, and several other comorbidities who presented to the emergency department via EMS from home for evaluation of weakness and shortness of breath. About a week ago he had a procedure for what sounds like urethral stricture done at [facility]. [place] catheter wa
[2022-05-16] MEDS: RIVAROXABAN 2.5 MG TABLET PO ×2 (09:58→21:10)
[2022-05-16] MEDS: methylPREDNISolone SOD SUCC 125 MG VIAL 60 MG IV PUSH (09:58)
[2022-05-16] MEDS: PANTOPRAZOLE 40 MG TABLET PO (09:58)
[2022-05-16] MEDS: TAMSULOSIN HCL 0.4 MG CAPSULE PO (09:58)
[2022-05-16] MEDS: TRIAMCINOLONE ACET 0.1% OINT 15 GM TUBE 1 APPLIC TOPICAL (09:59)
[2022-05-16] MEDS: SODIUM CHLORIDE 0.45% 1,000 ML 50 ML IV CONT (09:59)
[2022-05-16 11:48] LABS: Creatinine Urine 76.6 mg/dL
[2022-05-16 11:51] LABS: Sodium Urine Random 26 meq/L
[2022-05-16] MEDS: ACETAMINOPHEN 325 MG TABLET 650 MG PO ×2 (12:14→16:54)
[2022-05-16] MEDS: guaiFENesin/DEXTROMETHORPHAN 10 ML UDC PO (13:54)
--- NOTE | 2022-05-16 16:34 | PM.IMPN ---
Progress Note: A&P Assessment and Plan (1) Sepsis: Code(s): A41.9 - Sepsis, unspecified organism Status: Acute Assessment and Plan: Sepsis secondary to pneumonia and UTI Blood sputum urine cultures have been sent and are pending Urine Legionella pneumococcal antigen are pending Mycoplasma IgM is pending On empiric cefepime and azithromycin Patient received aggressive volume resuscitation on admission blood pressure has been adequate overnight. Will decrease IV fluids at this time (2) Pneumonia: Code(s): J18.9 - Pneumonia, unspecified organism Status: Acute Assessment and Plan: See above (3) Urinary tract infection: Code(s): N39.0 - Urinary tract infection, site not specified Status: Acute Assessment and Plan: See above (4) Acute on chronic kidney failure: Code(s): N17.9 - Acute kidney failure, unspecified; N18.9 - Chronic kidney disease, unspecified Status: Acute Assessment and Plan: Patient has chronic kidney disease with best recorded creatinine is 1.7. He presented with creatinine of 2.9. CT scan does not show any hydronephrosis renal ultrasound has been ordered at the time of admission and is pending Continue IV fluids but decrease rate Normal CK level Check urine electrolytes If does not improve, will consult nephrology (5) Heart failure with preserved ejection fraction: Code(s): I50.30 - Unspecified diastolic (congestive) heart failure Status: Acute Assessment and Plan: Decrease IV fluid (6) Hypotension: Code(s): I95.9 - Hypotension, unspecified Status: Acute Assessment and Plan: Patient presented with hypotension which is likely secondary to sepsis. Now resolved with IV fluids. He has not required any vasopressors and blood pressure is adequate at this time. Continue to monitor (7) Acute exacerbation of chronic obstructive pulmonary disease: Code(s): J44.1 - Chronic obstructive pulmonary disease with (acute) exacerbation Status: Acute Assessment and Plan: Patient appears to be in mild exacerbation of COPD. He has lip pursing and has some wheezing going on exam. Continue bronchodilators Will start Solu-Medrol At this point patient states he feels okay with his oxygen on and does not want to try CPAP or BiPAP. He states that he feels more comfortable with oxygen on and this is not something he has not used to.. Continue to monitor. (8) Urethral stricture: Code(s): N35.919 - Unspecified urethral stricture, male, unspecified site Status: Acute Assessment and Plan: Daily straight cath Bladder scan (9) Benign prostatic hyperplasia: Code(s): N40.0 - Benign prostatic hyperplasia without lower urinary tract symptoms Status: Acute Assessment and Plan: Continue Flomax Bladder scan to assess for any retention CT scan did not show any hydronephrosis (10) Obstructive sleep apnea: Code(s): G47.33 - Obstructive sleep apnea (adult) (pediatric) Status: Chronic Assessment and Plan: Continue oxygen as per patient's home use. He he states that he does not like you wear CPAP. (11) Chronic anemia: Code(s): D64.9 - Anemia, unspecified Status: Acute (12) Transaminitis: Code(s): R74.01 - Elevation of levels of liver transaminase levels Status: Acute Plan DVT prophylaxis -continue home Xarelto Stress ulcer prophylaxis -continue home PPI Nutrition -diet ordered Code Status - Full Code Subjective Date/time seen: 05/16/22 16:34 no complaints Exam Narrative: General: Pt is alert awake and in mild respiratory distress Lungs/Chest: Trachea central, lip pursing, Barrel chest, bilateral occasional wheezing Cardiac: RRR. Normal S1 S2. No murmurs Circulation: Pedal pulses are intact and symmetrical. Abdomen: Normal bowel sounds.. Soft. NT. ND. Extremities: No clubbing, cyanosis or edema. Warm : [place] in
[2022-05-16] MEDS: GABAPENTIN 300 MG CAPSULE PO (22:59)
[2022-05-17] VITALS (11 sets, daily range): BP systolic 108–120; BP diastolic 52–55; PULSE 89–99; RESP 18–24; TEMP 36.4–36.6; O2SAT 97–99
[2022-05-17 05:34] LABS: Hematocrit 37.7 % (42.0-52.0); Hemoglobin 11.2 g/dL (14.0-18.0); Immature Platelet Fraction Pct 6.1 % (0.9-11.2); Mean Corpuscular HGB Conc 29.7 g/dl (32-36); Mean Corpuscular Hemoglobin 26.6 pg (26-34); Mean Corpuscular Volume 89.5 fl (80-100); Mean Platelet Volume 10.2 fl (7.4-10.4); Platelet Count Result 84 k/mm3 (150-375); Red Blood Count 4.21 M/mm3 (4.6-6.20); Red Cell Distribution Width 17.8 % (11.5-14.5); White Blood Count 26.1 K/mm3 (4.5-10.0)
[2022-05-17 05:51] LABS: Alanine Aminotransferase 83 U/L (6-50); Alkaline Phosphatase 78 U/L (38-126); Anion Gap 10 mmol/L (8-16); Aspartate Amino Transferase 64 U/L (17-59); Bilirubin,Total 0.7 mg/dL (0.2-1.3); Blood Urea Nitrogen 47 mg/dL (9-20); Carbon Dioxide 26 mmol/L (22-30); Chloride 108 mmol/L (98-107); Estimated CRCL calculation 28 ml/min; Estimated Glomerular Filt Rate 26; Glucose 76 mg/dL (65-110); Magnesium 2.1 mg/dL (1.6-2.3); Sodium 144 mmol/L (137-145)
[2022-05-17] MEDS: SODIUM CHLORIDE 0.45% 1,000 ML 50 ML IV CONT (07:18)
[2022-05-17] MEDS: FLUTICASONE/SALMETEROL 230-21 MCG INHALER 1 PUFF 2 PUFF INHALATION ×2 (09:07→20:58)
[2022-05-17] MEDS: UMECLIDINIUM BROMIDE 62.5 MCG ELLIPTA 1 PUFF INHALATION (09:15)
[2022-05-17] MEDS: TAMSULOSIN HCL 0.4 MG CAPSULE PO (09:34)
[2022-05-17] MEDS: PANTOPRAZOLE 40 MG TABLET PO (09:34)
[2022-05-17] MEDS: RIVAROXABAN 2.5 MG TABLET PO ×2 (09:34→20:31)
[2022-05-17] MEDS: methylPREDNISolone SOD SUCC 40 MG VIAL 20 MG IV PUSH (09:35)
[2022-05-17] MEDS: TRIAMCINOLONE ACET 0.1% OINT 15 GM TUBE 1 APPLIC TOPICAL (09:35)
[2022-05-17] MEDS: guaiFENesin/DEXTROMETHORPHAN 10 ML UDC PO (11:09)
--- NOTE | 2022-05-17 11:11 | PM.IMPN ---
Progress Note: A&P Assessment and Plan (1) Sepsis: Code(s): A41.9 - Sepsis, unspecified organism Status: Acute Assessment and Plan: Sepsis secondary to pneumonia and UTI blood cultures and urine cultures have grown E colis (2) Pneumonia: Code(s): J18.9 - Pneumonia, unspecified organism Status: Acute Assessment and Plan: See above (3) Urinary tract infection: Code(s): N39.0 - Urinary tract infection, site not specified Status: Acute Assessment and Plan: See above (4) Acute on chronic kidney failure: Code(s): N17.9 - Acute kidney failure, unspecified; N18.9 - Chronic kidney disease, unspecified Status: Acute Assessment and Plan: Patient has chronic kidney disease with best recorded creatinine is 1.7. creatinine is 2.5. Monitor (5) Heart failure with preserved ejection fraction: Code(s): I50.30 - Unspecified diastolic (congestive) heart failure Status: Acute Assessment and Plan: appears compensated (6) Hypotension: Code(s): I95.9 - Hypotension, unspecified Status: Acute Assessment and Plan: Patient presented with hypotension which is likely secondary to sepsis. Now resolved with IV fluids. monitor (7) Acute exacerbation of chronic obstructive pulmonary disease: Code(s): J44.1 - Chronic obstructive pulmonary disease with (acute) exacerbation Status: Acute Assessment and Plan: Patient appears to be in mild exacerbation of COPD. He has lip pursing and has some wheezing going on exam. will decrease steroids. (8) Urethral stricture: Code(s): N35.919 - Unspecified urethral stricture, male, unspecified site Status: Acute Assessment and Plan: Daily straight cath Bladder scan (9) Benign prostatic hyperplasia: Code(s): N40.0 - Benign prostatic hyperplasia without lower urinary tract symptoms Status: Acute Assessment and Plan: Continue Flomax Bladder scan to assess for any retention CT scan did not show any hydronephrosis (10) Obstructive sleep apnea: Code(s): G47.33 - Obstructive sleep apnea (adult) (pediatric) Status: Chronic Assessment and Plan: Continue oxygen as per patient's home use. He he states that he does not like you wear CPAP. (11) Chronic anemia: Code(s): D64.9 - Anemia, unspecified Status: Acute (12) Transaminitis: Code(s): R74.01 - Elevation of levels of liver transaminase levels Status: Acute Assessment and Plan: Improving (13) Dysphagia: Code(s): R13.10 - Dysphagia, unspecified Status: Acute Assessment and Plan: GI consult Subjective Date/time seen: 05/17/22 11:11 patient reports breathing is little bit better. He is having significant issues with swallowing pills and food. Apparently this is not new and has been going on for some time. No prior workup Exam Narrative: General: Pt is alert awake and in mild respiratory distress Lungs/Chest: Trachea central, lip pursing, Barrel chest, bilateral occasional wheezing Cardiac: RRR. Normal S1 S2. No murmurs Circulation: Pedal pulses are intact and symmetrical. Abdomen: Normal bowel sounds.. Soft. NT. ND. Extremities: No clubbing, cyanosis or edema. Warm : [place] in place Neurologic: Follows commands. Moves all 4 extremities PERRL Skin: No Rash Objective Data Vital Signs Vital Signs: Vital Signs - 24 hr 05/16/22 11:45 05/16/22 11:58 05/16/22 12:14 Temperature 99.2 F Pulse Rate 97 98 101 H Respiratory Rate 26 H 28 H 26 H Blood Pressure 100/60 Pulse Oximetry 97 Oxygen Delivery Oxygen Flow Rate 05/16/22 12:14 05/16/22 15:01 05/16/22 16:16 Temperature 99.9 F H 98.0 F Pulse Rate 94 Respiratory Rate 22 H Blood Pressure Pulse Oximetry Oxygen Delivery Oxygen Flow Rate 05/16/22 16:27 05/16/22 16:27 05/16/22 16:00 Temperature 97.9 F Pulse Rat
--- NOTE | 2022-05-17 15:16 | PM.CNNEP ---
Assessment and Plan Assessment and plan (1) ALFREDO (acute kidney injury): Code(s): N17.9 - Acute kidney failure, unspecified Status: Acute Assessment and Plan: admission creatinine 2.9mg/dl suspect due to infection/early sepsis/bacteremia, prerenal factors (worsen by ongoing diuretic use) and associated hypotension (with continued use of home BP medications) evaluation to date: imaging studies without obstruction normal CPK urine electrolytes suggest pre-renal azotemia some improvement with IVFs follow trend of labs and UOP (2) Chronic kidney disease, stage IV (severe): Code(s): N18.4 - Chronic kidney disease, stage 4 (severe) Status: Chronic Assessment and Plan: recently established care with Dr. Kahn baseline creatinine runs 1.7 - 2.5mg/dl in the last year however, in the last few months (January - Apr 2022), creatinine has been running closer to 2.35 - 2.5mg/dl outpatient evaluation indicative of hypertension and vascular disease (3) Sepsis: Code(s): A41.9 - Sepsis, unspecified organism Status: Acute Assessment and Plan: due to urinary source urine and blood culture with E.coli and Enterococcus on antibiotic therapy follow hemodynamics and repeat culture (4) Urinary tract infection: Code(s): N39.0 - Urinary tract infection, site not specified Status: Acute Assessment and Plan: see #3 (5) Hypotension: Code(s): I95.9 - Hypotension, unspecified Status: Acute Assessment and Plan: resolved follow trend hemodynamics (6) Acute exacerbation of chronic obstructive pulmonary disease: Code(s): J44.1 - Chronic obstructive pulmonary disease with (acute) exacerbation Status: Acute Assessment and Plan: mild exacerbation of COPD continue bronchodilators continue steroids supplemental oxygen PRN Will continue to follow. History of Present Illness Reason for Consult Consult date: 05/17/22 Reason for consult: acute renal failure (on chronic kidney disease) Chief Complaint Chief complaint: alfredo, sepsis, pneumonia, transaminitis History of Present Illness Narrative: The patient is 71-year-old male with a past medical history as outlined below who presented to [facility] Emergency room for further evaluation of weakness and shortness of breath. for last few days the patient has noticed increasing cough from his usual baseline associated with yellowish sputum. He also reports increasing shortness of breath from baseline as well. Because of his shortness of breath he has been using his oxygen during both the day as well as at night when usually he only requires it at night. On the day of admission, he noted himself to be more weaker than usual in association with dizziness and what appears to be possibly tremors. He also reports a poor appetite but no reported nausea or vomiting any others subjective symptoms other than what has been already mentioned. It should be noted that about a week ago he had some type of urological procedure but tolerated this reasonably well. Given the aforementioned symptoms, he presented to the emergency room via EMS for further evaluation. Workup and evaluation emergency room demonstrated the patient me febrile with a temperature of 102.6 degrees and relative hypotension with his systolic BP in the 80s to 90 systolic. Routine blood test demonstrated a normal white blood cell count but he had 27% bands on differential with relatively stable anemia. His chemistry showed an elevated BUN and creatinine somewhat higher than baseline in association with a elevated lactic acid and mildly elevated liver function tests. CT of the chest and abdomen was significant for patchy infiltrates in the lungs but no acute intra-abdominal pathology. It was suspected that his CT scan findings represented pneumonia although his urinalysis was also highly suggestive of urina
[2022-05-17] MEDS: ACETAMINOPHEN 325 MG TABLET 650 MG PO (15:37)
[2022-05-17] MEDS: AMPICILLIN SULB 3 GM/NS 100 ML 3 GM/100 ML VIAL IVPB (17:29)
[2022-05-17] MEDS: ALBUTEROL SULFATE NEB 2.5 MG/3 ML INH INHALATION ×2 (17:40→21:15)
[2022-05-17] MEDS: CLOPIDOGREL BISULFATE 75 MG TABLET PO (20:31)
[2022-05-17] MEDS: guaiFENesin 12 HR 600 MG TABCR 1200 MG PO (20:32)
[2022-05-18] VITALS (13 sets, daily range): BP systolic 129–144; BP diastolic 63–96; PULSE 88–98; RESP 16–24; TEMP 36.2–36.8; O2SAT 95–99
[2022-05-18] MEDS: ALBUTEROL SULFATE NEB 2.5 MG/3 ML INH INHALATION ×2 (02:50→12:51)
[2022-05-18] MEDS: SODIUM CHLORIDE 0.45% 1,000 ML 50 ML IV CONT (05:04)
[2022-05-18] MEDS: AMPICILLIN SULB 3 GM/NS 100 ML 3 GM/100 ML VIAL IVPB ×2 (05:05→18:09)
[2022-05-18 05:11] LABS: Hematocrit 33.1 % (42.0-52.0); Hemoglobin 10.1 g/dL (14.0-18.0); Immature Platelet Fraction Pct 5.7 % (0.9-11.2); Mean Corpuscular HGB Conc 30.5 g/dl (32-36); Mean Corpuscular Hemoglobin 26.9 pg (26-34); Mean Platelet Volume 10.3 fl (7.4-10.4); Platelet Count Result 70 k/mm3 (150-375); Red Blood Count 3.76 M/mm3 (4.6-6.20); White Blood Count 27.7 K/mm3 (4.5-10.0)
[2022-05-18] MEDS: FUROSEMIDE INJ 40 MG/4 ML VIAL IV PUSH (05:17)
[2022-05-18 05:35] LABS: Alanine Aminotransferase 56 U/L (6-50); Albumin Level 2.6 g/dL (3.5-5.1); Alkaline Phosphatase 79 U/L (38-126); Anion Gap 7 mmol/L (8-16); Aspartate Amino Transferase 33 U/L (17-59); Bilirubin,Total 0.6 mg/dL (0.2-1.3); Blood Urea Nitrogen 51 mg/dL (9-20); Carbon Dioxide 23 mmol/L (22-30); Chloride 109 mmol/L (98-107); Estimated CRCL calculation 33 ml/min; Estimated Glomerular Filt Rate 31; Glucose 90 mg/dL (65-110); Magnesium 2.1 mg/dL (1.6-2.3); Potassium 4.4 mmol/L (3.4-5.0); Sodium 139 mmol/L (137-145)
[2022-05-18] MEDS: PANTOPRAZOLE 40 MG TABLET PO (08:14)
[2022-05-18] MEDS: methylPREDNISolone SOD SUCC 40 MG VIAL 20 MG IV PUSH (08:14)
[2022-05-18] MEDS: guaiFENesin 12 HR 600 MG TABCR 1200 MG PO ×2 (08:14→17:10)
[2022-05-18] MEDS: TAMSULOSIN HCL 0.4 MG CAPSULE PO (08:14)
[2022-05-18] MEDS: RIVAROXABAN 2.5 MG TABLET PO ×2 (08:14→21:47)
[2022-05-18] MEDS: TRIAMCINOLONE ACET 0.1% OINT 15 GM TUBE 1 APPLIC TOPICAL (08:15)
[2022-05-18] MEDS: FLUTICASONE/SALMETEROL 230-21 MCG INHALER 1 PUFF 2 PUFF INHALATION ×2 (10:00→20:45)
[2022-05-18] MEDS: UMECLIDINIUM BROMIDE 62.5 MCG ELLIPTA 1 PUFF INHALATION ×2 (10:00→20:50)
--- NOTE | 2022-05-18 10:29 | PM.IMPN ---
Progress Note: A&P Assessment and Plan (1) Sepsis: Code(s): A41.9 - Sepsis, unspecified organism Status: Acute Assessment and Plan: Sepsis secondary to pneumonia and UTI blood cultures and urine cultures have grown E colis blood cultures have also grown Enterococcus. Susceptibilities noted. Continue IV azithromycin and ampicillin. Monitor white blood cell count Which is still elevated. He is improving clinically. (2) Pneumonia: Code(s): J18.9 - Pneumonia, unspecified organism Status: Acute Assessment and Plan: Chest x-ray noted. Had atelectasis versus infiltrate on the left side. Questionable worsening. He is on appropriate antibiotic coverage. Not requiring any additional oxygen From baseline. Clinically he is improving. (3) Urinary tract infection: Code(s): N39.0 - Urinary tract infection, site not specified Status: Acute Assessment and Plan: cultures and sensitivities noted (4) Acute on chronic kidney failure: Code(s): N17.9 - Acute kidney failure, unspecified; N18.9 - Chronic kidney disease, unspecified Status: Acute Assessment and Plan: Patient has chronic kidney disease with best recorded creatinine is 1.7. creatinine continues to improve improved and is 2.1 (5) Heart failure with preserved ejection fraction: Code(s): I50.30 - Unspecified diastolic (congestive) heart failure Status: Acute Assessment and Plan: appears compensated (6) Hypotension: Code(s): I95.9 - Hypotension, unspecified Status: Acute Assessment and Plan: Patient presented with hypotension which is likely secondary to sepsis. Now resolved with IV fluids. monitor (7) Acute exacerbation of chronic obstructive pulmonary disease: Code(s): J44.1 - Chronic obstructive pulmonary disease with (acute) exacerbation Status: Acute Assessment and Plan: Patient appears to be in mild exacerbation of COPD. He has lip pursing and has some wheezing going on exam. will decrease steroids. continue to treat, patient is Improving (8) Urethral stricture: Code(s): N35.919 - Unspecified urethral stricture, male, unspecified site Status: Acute Assessment and Plan: Daily straight cath Bladder scan (9) Benign prostatic hyperplasia: Code(s): N40.0 - Benign prostatic hyperplasia without lower urinary tract symptoms Status: Acute Assessment and Plan: Continue Flomax Bladder scan to assess for any retention CT scan did not show any hydronephrosis (10) Obstructive sleep apnea: Code(s): G47.33 - Obstructive sleep apnea (adult) (pediatric) Status: Chronic Assessment and Plan: Continue oxygen as per patient's home use. He he states that he does not like you wear CPAP. (11) Chronic anemia: Code(s): D64.9 - Anemia, unspecified Status: Acute (12) Transaminitis: Code(s): R74.01 - Elevation of levels of liver transaminase levels Status: Acute Assessment and Plan: Improving (13) Dysphagia: Code(s): R13.10 - Dysphagia, unspecified Status: Acute Assessment and Plan: GI consult Subjective Date/time seen: 05/18/22 10:29 Patient reports he is feeling better each day. Breathing is much better. Eating well Exam Narrative: General: Pt is alert awake and in mild respiratory distress Lungs/Chest: Trachea central, lip pursing, Barrel chest, bilateral occasional wheezing Cardiac: RRR. Normal S1 S2. No murmurs Circulation: Pedal pulses are intact and symmetrical. Abdomen: Normal bowel sounds.. Soft. NT. ND. Extremities: No clubbing, cyanosis or edema. Warm : [place] in place Neurologic: Follows commands. Moves all 4 extremities PERRL Skin: No Rash Objective Data Vital Signs Vital Signs: Vital Signs - 24 hr 05/17/22 14:58 05/17/22 17:41 05/17/22 17:54 Temperature 97.6 F Pulse Rate 94 95 97 Res
--- NOTE | 2022-05-18 12:02 | P.PNNP_ITS ---
Progress Note: A&P Assessment and Plan (1) ALFREDO (acute kidney injury): Code(s): N17.9 - Acute kidney failure, unspecified Status: Acute Assessment and Plan: * admission creatinine 2.9mg/dl * suspect due to infection/early sepsis/bacteremia, prerenal factors (worsen by ongoing diuretic use) and associated hypotension (with continued use of home BP medications) * evaluation to date: * imaging studies without obstruction * normal CPK * urine electrolytes suggest pre-renal azotemia * some improvement with IVFs * follow trend of labs and UOP (2) Chronic kidney disease, stage IV (severe): Code(s): N18.4 - Chronic kidney disease, stage 4 (severe) Status: Chronic Assessment and Plan: * recently established care with Dr. Kahn * baseline creatinine runs 1.7 - 2.5mg/dl in the last year * however, in the last few months (January - Apr 2022), creatinine has been ru nning closer to 2.35 - 2.5mg/dl * outpatient evaluation indicative of hypertension and vascular disease (3) Sepsis: Code(s): A41.9 - Sepsis, unspecified organism Status: Acute Assessment and Plan: * due to urinary source as well as pneumonia * urine and blood culture with E.coli and Enterococcus * on antibiotic therapy * follow hemodynamics and repeat cultures (4) Urinary tract infection: Code(s): N39.0 - Urinary tract infection, site not specified Status: Acute Assessment and Plan: * see #3 (5) Pneumonia: Code(s): J18.9 - Pneumonia, unspecified organism Status: Acute Assessment and Plan: * as suggested by admission imaging * on antibiotic therapy (6) Hypotension: Code(s): I95.9 - Hypotension, unspecified Status: Acute Assessment and Plan: * resolved * follow trend hemodynamics (7) Acute exacerbation of chronic obstructive pulmonary disease: Code(s): J44.1 - Chronic obstructive pulmonary disease with (acute) exacerbation Status: Acute Assessment and Plan: * mild exacerbation of COPD * continue bronchodilators * continue steroids * supplemental oxygen PRN Will continue to follow. Subjective Date/time seen: 05/18/22 12:02 Continues to make slow and steady improvement in general; overall, he states he feels significantly better; breathing seems to be improving as well; no other acute issues/events overnight or earlier this morning; has noted some issues with dysphagia at this time. Exam Narrative: General: WD/WN male in NAD Heart: normal S1 and S2; no rub Lungs: coarse breath sounds Abdomen: soft, nontender, nondistended, positive bowel sounds Extremities: no cyanosis or clubbing; no edema Skin: warm and dry Objective Data Vital Signs Vital Signs: Vital Signs Temp Pulse Resp BP Pulse Ox O2 Del Method O2 Flow Rate 05/18/22 08:15 98 Nasal Cannula 3 05/18/22 10:01 89 20 05/18/22 02:57 91 24 H 05/18/22 02:50 98 24 H 05/18/22 04:38 36.6 C 93 20 130/63 98 05/18/22 00:44 129/96 H 05/18/22 00:00 36.8 C 95 22 H 137/73 95 05/17/22 21:15 90 20 05/17/22 20:00 97 Nasal Cannula 3 05/17/22 20:58 90 24 H 05/17/22 19:48 36.6 C 89 22 H 120/53 L 97 05/17/22 17:54 97 24 H 09
--- NOTE | 2022-05-18 12:02 | PM.PNNEP ---
Progress Note: A&P Assessment and Plan (1) ALFREDO (acute kidney injury): Code(s): N17.9 - Acute kidney failure, unspecified Status: Acute Assessment and Plan: admission creatinine 2.9mg/dl suspect due to infection/early sepsis/bacteremia, prerenal factors (worsen by ongoing diuretic use) and associated hypotension (with continued use of home BP medications) evaluation to date: imaging studies without obstruction normal CPK urine electrolytes suggest pre-renal azotemia some improvement with IVFs follow trend of labs and UOP (2) Chronic kidney disease, stage IV (severe): Code(s): N18.4 - Chronic kidney disease, stage 4 (severe) Status: Chronic Assessment and Plan: recently established care with Dr. Kahn baseline creatinine runs 1.7 - 2.5mg/dl in the last year however, in the last few months (January - Apr 2022), creatinine has been running closer to 2.35 - 2.5mg/dl outpatient evaluation indicative of hypertension and vascular disease (3) Sepsis: Code(s): A41.9 - Sepsis, unspecified organism Status: Acute Assessment and Plan: due to urinary source as well as pneumonia urine and blood culture with E.coli and Enterococcus on antibiotic therapy follow hemodynamics and repeat cultures (4) Urinary tract infection: Code(s): N39.0 - Urinary tract infection, site not specified Status: Acute Assessment and Plan: see #3 (5) Pneumonia: Code(s): J18.9 - Pneumonia, unspecified organism Status: Acute Assessment and Plan: as suggested by admission imaging on antibiotic therapy (6) Hypotension: Code(s): I95.9 - Hypotension, unspecified Status: Acute Assessment and Plan: resolved follow trend hemodynamics (7) Acute exacerbation of chronic obstructive pulmonary disease: Code(s): J44.1 - Chronic obstructive pulmonary disease with (acute) exacerbation Status: Acute Assessment and Plan: mild exacerbation of COPD continue bronchodilators continue steroids supplemental oxygen PRN Will continue to follow. Subjective Date/time seen: 05/18/22 12:02 Continues to make slow and steady improvement in general; overall, he states he feels significantly better; breathing seems to be improving as well; no other acute issues/events overnight or earlier this morning; has noted some issues with dysphagia at this time. Exam Narrative: General: WD/WN male in NAD Heart: normal S1 and S2; no rub Lungs: coarse breath sounds Abdomen: soft, nontender, nondistended, positive bowel sounds Extremities: no cyanosis or clubbing; no edema Skin: warm and dry Objective Data Vital Signs Vital Signs: Vital Signs Temp Pulse Resp BP Pulse Ox O2 Del Method O2 Flow Rate 05/18/22 08:15 98 Nasal Cannula 3 05/18/22 10:01 89 20 05/18/22 02:57 91 24 H 05/18/22 02:50 98 24 H 05/18/22 04:38 36.6 C 93 20 130/63 98 05/18/22 00:44 129/96 H 05/18/22 00:00 36.8 C 95 22 H 137/73 95 05/17/22 21:15 90 20 05/17/22 20:00 97 Nasal Cannula 3 05/17/22 20:58 90 24 H 05/17/22 19:48 36.6 C 89 22 H 120/53 L 97 05/17/22 17:54 97 24 H 05/17/22 17:41 95 24 H 05/17/22 14:58 36.4 C 94 18 114/52 L 97 Intake/Output Intake/Output: Intake & Output 05/15/22 05/16/22 05/17/22 05/18/22 23:59 23:59 23:59 23:59 Intake Total 3400 3240 2800 1810 Output Total 9366 877 0746 Balance 3400 1760 1999 -790 Meds/Results Medications: Active Medications Generic Name Dose Route Start Last Admin Trade Name Freq PRN Reason Stop Dose Admin Acetaminophen 650 mg 05/15/22 17:55 05/17/22 15:37 Acetaminophen 325 Mg Tablet PO 650 mg Q4H PRN Administration Mild Pain (1-3) or Fever Albuterol 1 puff 05/16/22 00:40 Albuterol Sulfate (*Sp) Aerosol 1 Puff INHALATION Q4H
--- NOTE | 2022-05-18 15:15 | WPDGICN ---
Assessment and Plan Assessment and plan (1) Dysphagia: Code(s): R13.10 - Dysphagia, unspecified Status: Acute Assessment and Plan: he denies having difficulty swallowing before getting sick and he wonders if could be phlegm/chest congestion will order barium esophagram to see if any obvious esophageal etiology, prefer conservative treatment since he still has respiratory discomfort and recovering from pneumonia/copd exacerbation (2) Acute on chronic kidney failure: Code(s): N17.9 - Acute kidney failure, unspecified; N18.9 - Chronic kidney disease, unspecified Status: Acute Assessment and Plan: nephrology on board (3) Sepsis: Code(s): A41.9 - Sepsis, unspecified organism Status: Acute Assessment and Plan: better and treated, moved to floor from icu (4) Pneumonia: Code(s): J18.9 - Pneumonia, unspecified organism Status: Acute (5) Acute exacerbation of chronic obstructive pulmonary disease: Code(s): J44.1 - Chronic obstructive pulmonary disease with (acute) exacerbation Status: Acute Assessment and Plan: on treatment, feeling better (6) Respiratory failure: Code(s): J96.90 - Respiratory failure, unspecified, unspecified whether with hypoxia or hypercapnia Status: Acute GI Consult Note Consult date/time: 05/18/22 15:15 Reason for consult: dysphagia HPI: Freddyleonel Hill is a 71 year old male with multiple medical problems including history of left empyema status post decortication, hypertension, peripheral vascular disease, sleep apnea on nocturnal oxygen, chronic obstructive pulmonary disease, chronic kidney disease who came to the emergency department via EMS few days ago from home for evaluation of weakness and shortness of breath, admitted briefly to ICU because sepsis from pneumonia and UTI, also required more respiratory treatment. Also a week ago prior to this admission he had a procedure for what sounds like urethral stricture done at [facility] Here with more cough, dyspnea and productive phlegm. He says that had some problem after swallowing but he thinks that mostly related to large amount of chest congestion and phlegm. 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 CT scan a/p reviewed and no major acute findings, small hiatal hernia. Review of Systems Constitutional: Constitutional: Reports fatigue Eyes: Eyes: Denies blurry vision ENT: Reports Normal hearing present and Reports dysphagia Cardiovascular: Cardiovascular: Denies leg edema Respiratory: Respiratory: Reports chest congestion, Reports cough and Reports dyspnea on exertion Gastrointestinal: Gastrointestinal: Denies abdominal pain Genitourinary: Genitourinary: Denies flank pain Musculoskeletal: Musculoskeletal: Denies myalgias Integumentary/Breasts: Skin/Breast: Denies rash Neurologic: Denies confusion Psychiatric: Psychiatric: Denies behavioral changes [facility] Past Medical History Medical History Arthritis AV block Status post Medtronic pacemaker placement. Benign prostatic hyperplasia Chronic anemia Chronic anemia Chronic kidney disease, stage 3 COPD with emphysema COVID-19 (04/2020) Eczema Empyema of left pleural space (05/2021) Pleural fluid grew out strep intermedius and staph hominis. Status post thoracotomy with decortication. Gastroesophageal reflux disease Heart failure with preserved ejection fraction Echocardiogram in November 2021 showed normal LV size and function with an EF measured at 66% and impaired diastolic relaxation. Hypertension Obstructive sleep apnea On 2 L nasal cannula at nighttime. Peripheral vascular disease Status post right carotid endarterectomy. Status post left lower extremity stent. Psoriasis Urethral stricture Surgical History Surgical History AICD (automatic cardioverter
[2022-05-18] MEDS: CLOPIDOGREL BISULFATE 75 MG TABLET PO (21:47)
[2022-05-18 23:52] LABS: Pneumococcal Antigen Urine Not Detected (Not Detected)
[2022-05-19] VITALS (8 sets, daily range): BP systolic 102–155; BP diastolic 62–72; PULSE 93–94; RESP 16–18; TEMP 36.4–36.8; O2SAT 93–98
[2022-05-19] MEDS: GABAPENTIN 300 MG CAPSULE PO ×2 (00:22→21:48)
[2022-05-19] MEDS: AMPICILLIN SULB 3 GM/NS 100 ML 3 GM/100 ML VIAL IVPB ×4 (00:23→18:04)
[2022-05-19 02:41] LABS: Glucose Point of Care 109 mg/dl (65-105)
[2022-05-19] MEDS: SODIUM CHLORIDE 0.45% 1,000 ML 50 ML IV CONT (02:46)
[2022-05-19 07:00] LABS: Hematocrit 34.4 % (42.0-52.0); Hemoglobin 10.3 g/dL (14.0-18.0); Immature Platelet Fraction Pct 7.7 % (0.9-11.2); Mean Corpuscular HGB Conc 29.9 g/dl (32-36); Mean Corpuscular Hemoglobin 26.5 pg (26-34); Mean Corpuscular Volume 88.7 fl (80-100); Mean Platelet Volume 12.5 fl (7.4-10.4); Platelet Count Result 59 k/mm3 (150-375); Red Blood Count 3.88 M/mm3 (4.6-6.20); Red Cell Distribution Width 18.4 % (11.5-14.5); White Blood Count 25.3 K/mm3 (4.5-10.0)
--- NOTE | 2022-05-19 07:12 | PC.NURSE ---
Patient was bladder scanned and have 386 of urine in bladder but refused to be straight cath. Patient stated that he usually straight cath everyday after breakfast.
[2022-05-19 07:19] LABS: Alanine Aminotransferase 39 U/L (6-50); Albumin Level 2.7 g/dL (3.5-5.1); Alkaline Phosphatase 93 U/L (38-126); Anion Gap 10 mmol/L (8-16); Aspartate Amino Transferase 20 U/L (17-59); Bilirubin,Total 0.5 mg/dL (0.2-1.3); Blood Urea Nitrogen 57 mg/dL (9-20); Calcium 8.1 mg/dL (8.4-10.2); Carbon Dioxide 25 mmol/L (22-30); Chloride 106 mmol/L (98-107); Estimated CRCL calculation 39 ml/min; Estimated Glomerular Filt Rate 37; Glucose 99 mg/dL (65-110); Potassium 3.7 mmol/L (3.4-5.0); Sodium 141 mmol/L (137-145)
[2022-05-19] MEDS: levoFLOXacin 750 MG TABLET PO (08:02)
[2022-05-19 08:03] LABS: Band Neutrophils Percent 5 % (0-6); Eosinophils Absolute Manual 0.25 K/mm3 (0.02-0.5); Eosinophils Percent Manual 1 % (0-4); Lymphocytes Absolute Manual 1.01 K/mm3 (1.1-4.5); Monocytes Absolute Manual 1.01 K/mm3 (0.1-0.90); Monocytes Percent Manual 4 % (3-9); Neutrophils Absolute Manual 23.02 K/mm3 (1.3-6.7); Neutrophils Percent Manual 86 % (46-73); Platelet Estimate Decreased (Adequate); Schistocytes 1+ (NORMAL); Total Cells Counted 100
[2022-05-19 08:04] LABS: Hypochromasia 1+ (NORMAL); Ovalocytes 1+ (NORMAL)
[2022-05-19] MEDS: FLUTICASONE/SALMETEROL 230-21 MCG INHALER 1 PUFF 2 PUFF INHALATION ×2 (08:54→21:03)
[2022-05-19] MEDS: methylPREDNISolone SOD SUCC 40 MG VIAL 20 MG IV PUSH (10:09)
[2022-05-19] MEDS: TRIAMCINOLONE ACET 0.1% OINT 15 GM TUBE 1 APPLIC TOPICAL (10:09)
--- NOTE | 2022-05-19 12:16 | PM.PNNEP ---
Progress Note: A&P Assessment and Plan (1) ALFREDO (acute kidney injury): Code(s): N17.9 - Acute kidney failure, unspecified Status: Acute Assessment and Plan: resolved admission creatinine 2.9mg/dl suspect due to infection/early sepsis/bacteremia, prerenal factors (worsen by ongoing diuretic use) and associated hypotension (with continued use of home BP medications) evaluation to date: imaging studies without obstruction normal CPK urine electrolytes suggest pre-renal azotemia improvement with IVFs -- can probably stop if adequate oral intake holding diuretics follow trend of labs and UOP (2) Chronic kidney disease, stage IV (severe): Code(s): N18.4 - Chronic kidney disease, stage 4 (severe) Status: Chronic Assessment and Plan: recently established care with Dr. Kahn baseline creatinine runs 1.7 - 2.5mg/dl in the last year however, in the last few months (January - Apr 2022), creatinine has been running closer to 2.35 - 2.5mg/dl outpatient evaluation indicative of hypertension and vascular disease (3) Sepsis: Code(s): A41.9 - Sepsis, unspecified organism Status: Acute Assessment and Plan: due to urinary source as well as pneumonia urine and blood culture with E.coli and Enterococcus sputum culture with Pseudomonas on antibiotic therapy follow hemodynamics and repeat cultures (4) Urinary tract infection: Code(s): N39.0 - Urinary tract infection, site not specified Status: Acute Assessment and Plan: urine culture results noted on antibiotics see #3 (5) Pneumonia: Code(s): J18.9 - Pneumonia, unspecified organism Status: Acute Assessment and Plan: admission imaging noted sputum culture noted on antibiotic therapy see #3 (6) Hypotension: Code(s): I95.9 - Hypotension, unspecified Status: Acute Assessment and Plan: resolved follow trend hemodynamics (7) Acute exacerbation of chronic obstructive pulmonary disease: Code(s): J44.1 - Chronic obstructive pulmonary disease with (acute) exacerbation Status: Acute Assessment and Plan: mild exacerbation of COPD continue bronchodilators continue steroids supplemental oxygen PRN Will continue to follow. Subjective Date/time seen: 05/19/22 12:16 Continues to make slow and steady improvement in general; seen by GI regarding issues with dysphagia and upper GI series ordered for today (however, he appears to be eating/drinking okay); no other acute issues/events overnight or earlier this AM. Exam Narrative: General: WD/WN male in NAD Heart: normal S1 and S2; no rub Lungs: coarse breath sounds Abdomen: soft, nontender, nondistended, positive bowel sounds Extremities: no cyanosis or clubbing; no edema Skin: warm and intact Objective Data Vital Signs Vital Signs: Vital Signs Temp Pulse Resp BP Pulse Ox O2 Del Method O2 Flow Rate 05/19/22 08:05 98 Nasal Cannula 2 05/19/22 08:00 98 Nasal Cannula 2 05/19/22 08:55 96 Nasal Cannula 3 05/19/22 07:45 36.4 C 93 18 102/65 95 05/18/22 23:49 36.4 C L 97 20 144/74 H 98 05/18/22 20:50 88 20 Intake/Output Intake/Output: Intake & Output 05/16/22 05/17/22 05/18/22 05/19/22 23:59 23:59 23:59 23:59 Intake Total 3240 2800 3200 1300 Output Total 1357 403 8745 1150 Balance 1760 2000 200 150 Meds/Results Medications: Active Medications Generic Name Dose Route Start Last Admin Trade Name Freq PRN Reason Stop Dose Admin Acetaminophen 650 mg 05/15/22 17:55 05/17/22 15:37 Acetaminophen 325 Mg Tablet PO 650 mg Q4H PRN Administration Mild Pain (1-3) or Fever Albuterol 1 puff 05/16/22 00:40 Albuterol Sulfate (*Sp) Aerosol 1 Puff INHALATION Q4H PRN Wheezing Albuterol 2.5 mg 05/16/22 00:40 05/18/22 12:51 Albuterol Sulfate Neb 2.5 Mg/3 Ml Inh INHA
--- NOTE | 2022-05-19 12:16 | P.PNNP_ITS ---
Progress Note: A&P Assessment and Plan (1) ALFREDO (acute kidney injury): Code(s): N17.9 - Acute kidney failure, unspecified Status: Acute Assessment and Plan: * resolved * admission creatinine 2.9mg/dl * suspect due to infection/early sepsis/bacteremia, prerenal factors (worsen by ongoing diuretic use) and associated hypotension (with continued use of home BP medications) * evaluation to date: * imaging studies without obstruction * normal CPK * urine electrolytes suggest pre-renal azotemia * improvement with IVFs -- can probably stop if adequate oral intake * holding diuretics * follow trend of labs and UOP (2) Chronic kidney disease, stage IV (severe): Code(s): N18.4 - Chronic kidney disease, stage 4 (severe) Status: Chronic Assessment and Plan: * recently established care with Dr. Kahn * baseline creatinine runs 1.7 - 2.5mg/dl in the last year * however, in the last few months (January - Apr 2022), creatinine has been running closer to 2.35 - 2.5mg/dl * outpatient evaluation indicative of hypertension and vascular disease (3) Sepsis: Code(s): A41.9 - Sepsis, unspecified organism Status: Acute Assessment and Plan: * due to urinary source as well as pneumonia * urine and blood culture with E.coli and Enterococcus * sputum culture with Pseudomonas * on antibiotic therapy * follow hemodynamics and repeat cultures (4) Urinary tract infection: Code(s): N39.0 - Urinary tract infection, site not specified Status: Acute Assessment and Plan: * urine culture results noted * on antibiotics * see #3 (5) Pneumonia: Code(s): J18.9 - Pneumonia, unspecified organism Status: Acute Assessment and Plan: * admission imaging noted * sputum culture noted * on antibiotic therapy * see #3 (6) Hypotension: Code(s): I95.9 - Hypotension, unspecified Status: Acute Assessment and Plan: * resolved * follow trend hemodynamics (7) Acute exacerbation of chronic obstructive pulmonary disease: Code(s): J44.1 - Chronic obstructive pulmonary disease with (acute) exacerbation Status: Acute Assessment and Plan: * mild exacerbation of COPD * continue bronchodilators * continue steroids * supplemental oxygen PRN Will continue to follow. Subjective Date/time seen: 05/19/22 12:16 Continues to make slow and steady improvement in general; seen by GI regarding issues with dysphagia and upper GI series ordered for today (however, he appears to be eating/drinking okay); no other acute issues/events overnight or earlier this AM. Exam Narrative: General: WD/WN male in NAD Heart: normal S1 and S2; no rub Lungs: coarse breath sounds Abdomen: soft, nontender, nondistended, positive bowel sounds Extremities: no cyanosis or clubbing; no edema Skin: warm and intact Objective Data Vital Signs Vital Signs: Vital Signs Temp Pulse Resp BP Pulse Ox O2 Del Method O2 Flow Rate 05/19/22 08:05 98 Nasal Cannula 2 05/19/22 08:00 98 Nasal Cannula 2 05/19/22 08:55 96 Nasal Cannula 3 05/19/22 07:45 36.4 C 93 18 102/65 95 05/18/22 23:49 36.4 C L 97 20 144/74 H 98 05/18/22 20:50 88 20 Intake/Output Intake/Output:
--- NOTE | 2022-05-19 12:37 | WPDGIPROGNO ---
Progress Note: A&P Assessment and Plan (1) Dysphagia: Code(s): R13.10 - Dysphagia, unspecified Status: Acute Assessment and Plan: pending esophagram, he has been eating though no plan for egd unless obvious abnormal esophagram (2) Chronic kidney disease, stage IV (severe): Code(s): N18.4 - Chronic kidney disease, stage 4 (severe) Status: Chronic (3) Pneumonia: Code(s): J18.9 - Pneumonia, unspecified organism Status: Acute Assessment and Plan: on treatment CXR some improvement (4) Acute exacerbation of chronic obstructive pulmonary disease: Code(s): J44.1 - Chronic obstructive pulmonary disease with (acute) exacerbation Status: Acute Subjective Date/time seen: 05/19/22 12:37 Interval history: he thinks that slowly is getting better Review of Systems Review of Systems: All systems reviewed & are unremarkable except as noted in HPI and below Exam Const: Other: chronically ill appearing, wearing oxygen HENMT: General nose exam: Normal nares present Eyes: General: appearance normal, both eyes and all related structures Neck: Neck: supple Resp: Auscultation: rhonchi and diminished lung sounds Other: coarse BS Cardio: Rate: regular rate GI: GI Palp: Yes Soft to palpation and No Tenderness to palpation present (GI) Auscultation: normal bowel sounds Skin: General skin exam: normal color Neuro: Speech: normal speech Motor exam (neuro): 5/5 motor strength present throughout Extrem: General: normal to inspection Psych: Mental Status: mental status grossly normal Objective Data Vital Signs Vital Signs: Vital Signs - 24 hr 05/18/22 12:52 05/18/22 12:54 05/18/22 12:59 Temperature Pulse Rate 95 95 96 Respiratory Rate 20 20 20 Blood Pressure Pulse Oximetry 96 Oxygen Delivery Nasal Cannula Oxygen Flow Rate 3 05/18/22 14:02 05/18/22 20:50 05/18/22 23:49 Temperature 97.2 F L 97.5 F L Pulse Rate 95 88 97 Respiratory Rate 16 20 20 Blood Pressure 138/65 144/74 H Pulse Oximetry 99 98 Oxygen Delivery Oxygen Flow Rate 05/19/22 07:45 05/19/22 08:55 05/19/22 08:00 Temperature 97.6 F Pulse Rate 93 Respiratory Rate 18 Blood Pressure 102/65 Pulse Oximetry 95 96 98 Oxygen Delivery Nasal Cannula Nasal Cannula Oxygen Flow Rate 3 2 Intake/Output Intake/Output: Intake & Output 05/16/22 05/17/22 05/18/22 05/19/22 23:59 23:59 23:59 23:59 Intake Total 3240 2800 3200 1100 Output Total 0957 695 0941 700 Balance 1760 2000 200 400 Meds/Results Medications: Active Medications Generic Name Dose Route Start Last Admin Trade Name Freq PRN Reason Stop Dose Admin Acetaminophen 650 mg 05/15/22 17:55 05/17/22 15:37 Acetaminophen 325 Mg Tablet PO 650 mg Q4H PRN Administration Mild Pain (1-3) or Fever Albuterol 1 puff 05/16/22 00:40 Albuterol Sulfate (*Sp) Aerosol 1 Puff INHALATION Q4H PRN Wheezing Albuterol 2.5 mg 05/16/22 00:40 05/18/22 12:51 Albuterol Sulfate Neb 2.5 Mg/3 Ml Inh INHALATION 2.5 mg Q4-6H PRN Administration Shortness Of Breath Clopidogrel Bisulfate 75 mg 05/16/22 01:30 05/18/22 21:47 Clopidogrel Bisulfate 75 Mg Tablet PO 75 mg HS JUSTIN Administration Gabapentin 300 mg 05/16/22 00:40 05/19/22 00:22 Gabapentin 300 Mg Capsule PO 300 mg HS PRN Administration Pain Guaifenesin 1,200 mg 05/18/22 17:00 05/19/22 08:56 Guaifenesin 12 Hr 600 Mg Tabcr PO Not Given BID JUSTIN Azithromycin 500 mg in 250 mls @ 250 mls/hr 05/16/22 17:00 05/18/22 17:39 Zithromax IVPB 05/19/22 20:00 Infused Q24H JUSTIN Infusion Sodium Chloride 1,000 mls @ 50 mls/hr 05/16/22 08:25 05/19/22 02:46 Sodium Chloride 0.45% IV CONT 50 mls/hr .Q20H JUSTIN Administration Ampicillin Sodium/Sulbactam Sodium 3 gm in 100 mls @ 200 mls/hr 05/18/22 18:00 05/19/22 05:46 Unasyn 3 Gm/Ns 100 Ml IVPB 200 mls/hr Q6HR JUSTIN
--- NOTE | 2022-05-19 14:52 | PC.NURSE ---
On 05/19/22, the student, [Britni Rodriguez], provided care and completed mig33 documentation on this patient. I have reviewed the student's documentation and agree with the findings.
[2022-05-19 15:40] LABS: Legionella pneumophila Ag Ur Not Detected (Not Detected)
--- NOTE | 2022-05-19 17:28 | PM.IMPN ---
Progress Note: A&P Assessment and Plan (1) Sepsis: Code(s): A41.9 - Sepsis, unspecified organism Status: Acute Assessment and Plan: Sepsis with septicemia secondary to pneumonia and/or UTI. Blood cultures and urine cultures have grown E coli. Blood cultures have also grown Enterococcus. Susceptibilities noted. Continue IV azithromycin to complete 5 days and continue Unasyn. Sputum growing pseudomonas so will add Levaquin as well. WBC markedly elevated but slightly better today. He is improving clinically. Continue IV abx. (2) Pneumonia: Code(s): J18.9 - Pneumonia, unspecified organism Status: Acute Assessment and Plan: As above. Chest x-ray noted. Had atelectasis versus infiltrate on the left side. Questionable worsening. He is on appropriate antibiotic coverage. Increasing oxygen from baseline. Consider aspiration as a component as well. Check MBS (3) Urinary tract infection: Code(s): N39.0 - Urinary tract infection, site not specified Status: Acute Assessment and Plan: As above. Urine and blood cultures and sensitivities noted. (4) Acute on chronic kidney failure: Code(s): N17.9 - Acute kidney failure, unspecified; N18.9 - Chronic kidney disease, unspecified Status: Acute Assessment and Plan: Patient has chronic kidney disease with best recorded creatinine is 1.7. Creatinine was 2.9 on admisison and has continued to improve improved to 1.8 today. Change IV fluids to maintenance since NPO (5) Heart failure with preserved ejection fraction: Code(s): I50.30 - Unspecified diastolic (congestive) heart failure Status: Acute Assessment and Plan: Appears compensated. Back off on IV fluids. (6) Hypotension: Code(s): I95.9 - Hypotension, unspecified Status: Acute Assessment and Plan: Patient presented with hypotension secondary to sepsis. Now resolved with IV fluids. monitor (7) Acute exacerbation of chronic obstructive pulmonary disease: Code(s): J44.1 - Chronic obstructive pulmonary disease with (acute) exacerbation Status: Acute Assessment and Plan: Patient with mild exacerbation of COPD. He has lip pursing and has some wheezing going on exam. He was treated with Solu-Medrol but now being weaned off. Will stop steroids and monitor. Continue inhalers (8) Urethral stricture: Code(s): N35.919 - Unspecified urethral stricture, male, unspecified site Status: Acute Assessment and Plan: Continue daily straight cath (9) Benign prostatic hyperplasia: Code(s): N40.0 - Benign prostatic hyperplasia without lower urinary tract symptoms Status: Acute Assessment and Plan: Stable. Continue Flomax (10) Obstructive sleep apnea: Code(s): G47.33 - Obstructive sleep apnea (adult) (pediatric) Status: Chronic Assessment and Plan: Continue oxygen as per patient's home use. He he states that he does not like you wear CPAP. (11) Transaminitis: Code(s): R74.01 - Elevation of levels of liver transaminase levels Status: Acute Assessment and Plan: Improving (12) Dysphagia: Code(s): R13.10 - Dysphagia, unspecified Status: Acute Assessment and Plan: UGI results noted. Keep HOB elevated. Speech therapy to see for MBS Subjective Date/time seen: 05/19/22 17:28 Interval history: 71yo male with COPD, chronic respiratory failure (2L at noc only) and CHF here for weakness and SOB. Assuming care. Chart reviewed. Shortness of breath is better. Cough is slightly improved. Does wear oxygen but only at night at home at 2 L. He does not wear during the day unless he needs it. No chest pain. He does feel lightheaded when he was standing. Has had issues with dysphagia. Unhappy that he can not eat. Exam Narrative: AF 97.8 136/62 93 18 98% ra Gen - NARD Chest - distant BS CV
[2022-05-19] MEDS: DEXTROSE 5%/0.9% SOD CHL 1,000 ML 60 ML IV CONT (18:03)
[2022-05-19 20:24] LABS: Mycoplasma IgM Antibody Titer 53 U/mL (<770)
[2022-05-19] MEDS: CLOPIDOGREL BISULFATE 75 MG TABLET PO (20:24)
[2022-05-19] MEDS: RIVAROXABAN 2.5 MG TABLET PO (20:24)
[2022-05-19] MEDS: NYSTATIN 100,000 UNITS/ML SUSP 5 ML ORAL.SUSP PO (20:30)
[2022-05-19] MEDS: UMECLIDINIUM BROMIDE 62.5 MCG ELLIPTA 1 PUFF INHALATION (21:03)
[2022-05-19] MEDS: MELATONIN 5 MG TABLET PO (21:48)
[2022-05-20] MEDS: AMPICILLIN SULB 3 GM/NS 100 ML 3 GM/100 ML VIAL IVPB ×5 (00:19→22:41)
[2022-05-20 06:02] LABS: Basophils Percent Auto 0.1 % (0.2-1.2); Hematocrit 34.5 % (42.0-52.0); Hemoglobin 10.4 g/dL (14.0-18.0); Immature Granulocyte Percent A 0.7 % (0-0.5); Immature Platelet Fraction Pct 7.8 % (0.9-11.2); Lymphocytes Absolute Auto 0.47 K/mm3 (0.9-3.2); Lymphocytes Percent Auto 3.3 % (18.3-44.2); Mean Corpuscular HGB Conc 30.1 g/dl (32-36); Mean Corpuscular Hemoglobin 27.1 pg (26-34); Mean Corpuscular Volume 89.8 fl (80-100); Monocytes Absolute Auto 0.8 K/mm3 (0.1-0.6); Neutrophils Absolute Auto 12.6 K/mm3 (1.3-6.7); Neutrophils Percent Auto 89.9 % (45.5-73.1); Platelet Count Result 62 k/mm3 (150-375); Red Blood Count 3.84 M/mm3 (4.6-6.20); Red Cell Distribution Width 18.5 % (11.5-14.5)
[2022-05-20 06:12] LABS: Alanine Aminotransferase 30 U/L (6-50); Albumin Level 2.6 g/dL (3.5-5.1); Alkaline Phosphatase 78 U/L (38-126); Anion Gap 9 mmol/L (8-16); Aspartate Amino Transferase 18 U/L (17-59); Bilirubin,Total 0.5 mg/dL (0.2-1.3); Blood Urea Nitrogen 51 mg/dL (9-20); Calcium 7.7 mg/dL (8.4-10.2); Carbon Dioxide 25 mmol/L (22-30); Chloride 109 mmol/L (98-107); Estimated CRCL calculation 49 ml/min; Estimated Glomerular Filt Rate 46; Glucose 119 mg/dL (65-110); Potassium 3.8 mmol/L (3.4-5.0); Sodium 143 mmol/L (137-145)
[2022-05-20 06:27] VITALS: BP 154/62; PULSE 84; RESP 18; TEMP 36.2; O2SAT 96
[2022-05-20 07:16] LABS: Platelet Estimate Decreased (Adequate)
[2022-05-20 07:17] LABS: Crenated RBC 3+ (NORMAL); Ovalocytes 1+ (NORMAL); Schistocytes None Seen (NORMAL)
[2022-05-20 08:00] VITALS: O2SAT 95
--- NOTE | 2022-05-20 08:36 | PCOTNOTE ---
Attempted OT evaluation, patient is currently off the unit for a test. Will follow.
[2022-05-20] MEDS: PANTOPRAZOLE 40 MG TABLET PO (09:32)
[2022-05-20] MEDS: NYSTATIN 100,000 UNITS/ML SUSP 5 ML ORAL.SUSP PO ×4 (09:32→21:20)
[2022-05-20] MEDS: guaiFENesin 12 HR 600 MG TABCR 1200 MG PO ×2 (09:32→17:57)
[2022-05-20] MEDS: TAMSULOSIN HCL 0.4 MG CAPSULE PO (09:32)
[2022-05-20] MEDS: RIVAROXABAN 2.5 MG TABLET PO ×2 (09:32→21:20)
[2022-05-20] MEDS: TRIAMCINOLONE ACET 0.1% OINT 15 GM TUBE 1 APPLIC TOPICAL (09:33)
--- NOTE | 2022-05-20 10:11 | PCSTNOTE ---
Please refer to the Modified Barium Swallow Evaluation in the EMR.
--- NOTE | 2022-05-20 10:44 | P.PNNP_ITS ---
Progress Note: A&P Assessment and Plan (1) ALFREDO (acute kidney injury): Code(s): N17.9 - Acute kidney failure, unspecified Status: Acute Assessment and Plan: * resolved * admission creatinine 2.9mg/dl * suspect due to infection/early sepsis/bacteremia, prerenal factors (worsen by ongoing diuretic use) and associated hypotension (with continued use of home BP medications) * evaluation to date: * imaging studies without obstruction * normal CPK * urine electrolytes suggest pre-renal azotemia * improvement with IVFs noted * holding diuretics * follow trend of labs and UOP (2) Chronic kidney disease, stage IV (severe): Code(s): N18.4 - Chronic kidney disease, stage 4 (severe) Status: Chronic Assessment and Plan: * recently established care with Dr. Kahn * baseline creatinine runs 1.7 - 2.5mg/dl in the last year * however, in the last few months (January - Apr 2022), creatinine has been running closer to 2.35 - 2.5mg/dl * outpatient evaluation indicative of hypertension and vascular disease as etiology (3) Sepsis: Code(s): A41.9 - Sepsis, unspecified organism Status: Acute Assessment and Plan: * due to urinary source as well as pneumonia * urine and blood culture with E.coli and Enterococcus * sputum culture with Pseudomonas * on antibiotic therapy * follow hemodynamics and repeat cultures (4) Urinary tract infection: Code(s): N39.0 - Urinary tract infection, site not specified Status: Acute Assessment and Plan: * urine culture results noted * on antibiotics * see #3 (5) Pneumonia: Code(s): J18.9 - Pneumonia, unspecified organism Status: Acute Assessment and Plan: * admission imaging noted * sputum culture noted * on antibiotic therapy * see #3 (6) Hypotension: Code(s): I95.9 - Hypotension, unspecified Status: Acute Assessment and Plan: * resolved * follow trend hemodynamics * may need to slowly re-introduce BP medications (7) Acute exacerbation of chronic obstructive pulmonary disease: Code(s): J44.1 - Chronic obstructive pulmonary disease with (acute) exacerbation Status: Acute Assessment and Plan: * mild exacerbation of COPD * continue bronchodilators * continue steroids * supplemental oxygen PRN Will continue to follow. Subjective Date/time seen: 05/20/22 10:44 Appears to be doing reasonably well at this time; no apparent complaints voiced; no issues overnight; respiratory status/breathing seems to be improving. Exam Narrative: General: WD/WN male in NAD Heart: normal S1 and S2; no rub Lungs: coarse breath sounds Abdomen: soft, nontender, nondistended, positive bowel sounds Extremities: no cyanosis or clubbing; no edema Skin: no rash Objective Data Vital Signs Vital Signs: Vital Signs Temp Pulse Resp BP Pulse Ox O2 Del Method 05/20/22 08:00 95 Room Air 05/20/22 06:27 36.2 C L 84 18 154/62 H 96 05/19/22 21:16 36.8 C 93 16 155/72 H 94 05/19/22 20:00 94 16 93 Room Air 05/19/22 21:07 93 Room Air 05/19/22 13:43 36.6 C 93 18 136/62 98 Intake/Output Intake/Output: Intake & Output 05/17/22 05/18/22 05/19/22 05/20/22
--- NOTE | 2022-05-20 10:44 | PM.PNNEP ---
Progress Note: A&P Assessment and Plan (1) ALFREDO (acute kidney injury): Code(s): N17.9 - Acute kidney failure, unspecified Status: Acute Assessment and Plan: resolved admission creatinine 2.9mg/dl suspect due to infection/early sepsis/bacteremia, prerenal factors (worsen by ongoing diuretic use) and associated hypotension (with continued use of home BP medications) evaluation to date: imaging studies without obstruction normal CPK urine electrolytes suggest pre-renal azotemia improvement with IVFs noted holding diuretics follow trend of labs and UOP (2) Chronic kidney disease, stage IV (severe): Code(s): N18.4 - Chronic kidney disease, stage 4 (severe) Status: Chronic Assessment and Plan: recently established care with Dr. Kahn baseline creatinine runs 1.7 - 2.5mg/dl in the last year however, in the last few months (January - Apr 2022), creatinine has been running closer to 2.35 - 2.5mg/dl outpatient evaluation indicative of hypertension and vascular disease as etiology (3) Sepsis: Code(s): A41.9 - Sepsis, unspecified organism Status: Acute Assessment and Plan: due to urinary source as well as pneumonia urine and blood culture with E.coli and Enterococcus sputum culture with Pseudomonas on antibiotic therapy follow hemodynamics and repeat cultures (4) Urinary tract infection: Code(s): N39.0 - Urinary tract infection, site not specified Status: Acute Assessment and Plan: urine culture results noted on antibiotics see #3 (5) Pneumonia: Code(s): J18.9 - Pneumonia, unspecified organism Status: Acute Assessment and Plan: admission imaging noted sputum culture noted on antibiotic therapy see #3 (6) Hypotension: Code(s): I95.9 - Hypotension, unspecified Status: Acute Assessment and Plan: resolved follow trend hemodynamics may need to slowly re-introduce BP medications (7) Acute exacerbation of chronic obstructive pulmonary disease: Code(s): J44.1 - Chronic obstructive pulmonary disease with (acute) exacerbation Status: Acute Assessment and Plan: mild exacerbation of COPD continue bronchodilators continue steroids supplemental oxygen PRN Will continue to follow. Subjective Date/time seen: 05/20/22 10:44 Appears to be doing reasonably well at this time; no apparent complaints voiced; no issues overnight; respiratory status/breathing seems to be improving. Exam Narrative: General: WD/WN male in NAD Heart: normal S1 and S2; no rub Lungs: coarse breath sounds Abdomen: soft, nontender, nondistended, positive bowel sounds Extremities: no cyanosis or clubbing; no edema Skin: no rash Objective Data Vital Signs Vital Signs: Vital Signs Temp Pulse Resp BP Pulse Ox O2 Del Method 05/20/22 08:00 95 Room Air 05/20/22 06:27 36.2 C L 84 18 154/62 H 96 05/19/22 21:16 36.8 C 93 16 155/72 H 94 05/19/22 20:00 94 16 93 Room Air 05/19/22 21:07 93 Room Air 05/19/22 13:43 36.6 C 93 18 136/62 98 Intake/Output Intake/Output: Intake & Output 05/17/22 05/18/22 05/19/22 05/20/22 23:59 23:59 23:59 23:59 Intake Total 2800 3200 1400 100 Output Total 800 3000 1800 1000 Balance 2000 200 -400 -900 Meds/Results Medications: Active Medications Generic Name Dose Route Start Last Admin Trade Name Freq PRN Reason Stop Dose Admin Acetaminophen 650 mg 05/15/22 17:55 05/17/22 15:37 Acetaminophen 325 Mg Tablet PO 650 mg Q4H PRN Administration Mild Pain (1-3) or Fever Albuterol 1 puff 05/16/22 00:40 Albuterol Sulfate (*Sp) Aerosol 1 Puff INHALATION Q4H PRN Wheezing Albuterol 2.5 mg 05/16/22 00:40 05/18/22 12:51 Albuterol Sulfate Neb 2.5 Mg/3 Ml Inh INHALATION 2.5 mg Q4-6H PRN Administration Shortness Of Breath Clopidogrel Bisulfate
[2022-05-20 13:52] VITALS: BP 150/73; PULSE 94; RESP 18; TEMP 36.6; O2SAT 97
[2022-05-20] MEDS: DEXTROSE 5%/0.9% SOD CHL 1,000 ML 60 ML IV CONT (14:21)
--- NOTE | 2022-05-20 14:22 | WPDGIPROGNO ---
Progress Note: A&P Assessment and Plan (1) Dysphagia: Code(s): R13.10 - Dysphagia, unspecified Status: Acute Assessment and Plan: UGI results noted c/w presbyesophagus and reflux, Keep HOB elevated, diet with thickened liquid treatment for oral thrush no need for egd unless new symptoms (he came in with respiratory distress, risk for complications) will follow from afar, call if questions (2) Chronic kidney disease, stage IV (severe): Code(s): N18.4 - Chronic kidney disease, stage 4 (severe) Status: Chronic Assessment and Plan: by nephrology (3) Pneumonia: Code(s): J18.9 - Pneumonia, unspecified organism Status: Acute Assessment and Plan: on treatment CXR some improvement (4) Acute exacerbation of chronic obstructive pulmonary disease: Code(s): J44.1 - Chronic obstructive pulmonary disease with (acute) exacerbation Status: Acute Subjective Date/time seen: 05/20/22 14:22 Interval history: slowly doing better and breathing improved, also on treatment for oral thrush. Review of Systems Review of Systems: All systems reviewed & are unremarkable except as noted in HPI and below Exam Const: Other: chronically ill appearing HENMT: General nose exam: Normal nares present Other: oral thrush Eyes: General: appearance normal, both eyes and all related structures Neck: Neck: supple Resp: Auscultation: rhonchi and diminished lung sounds Other: coarse BS Cardio: Rate: regular rate GI: GI Palp: Yes Soft to palpation and No Tenderness to palpation present (GI) Auscultation: normal bowel sounds Skin: General skin exam: normal color Neuro: Speech: normal speech Motor exam (neuro): 5/5 motor strength present throughout Extrem: General: normal to inspection Psych: Mental Status: mental status grossly normal Objective Data Vital Signs Vital Signs: Vital Signs - 24 hr 05/19/22 21:07 05/19/22 20:00 05/19/22 21:16 Temperature 98.2 F Pulse Rate 94 93 Respiratory Rate 16 16 Blood Pressure 155/72 H Pulse Oximetry 93 93 94 Oxygen Delivery Room Air Room Air 05/20/22 06:27 05/20/22 08:00 05/20/22 11:40 Temperature 97.1 F L Pulse Rate 84 Respiratory Rate 18 Blood Pressure 154/62 H Pulse Oximetry 96 95 Oxygen Delivery Room Air Room Air 05/20/22 12:41 Temperature Pulse Rate Respiratory Rate Blood Pressure Pulse Oximetry Oxygen Delivery Room Air Intake/Output Intake/Output: Intake & Output 05/17/22 05/18/22 05/19/22 05/20/22 23:59 23:59 23:59 23:59 Intake Total 2800 3200 1400 1400 Output Total 800 3000 1800 1600 Balance 2000 200 -400 -200 Meds/Results Medications: Active Medications Generic Name Dose Route Start Last Admin Trade Name Freq PRN Reason Stop Dose Admin Acetaminophen 650 mg 05/15/22 17:55 05/17/22 15:37 Acetaminophen 325 Mg Tablet PO 650 mg Q4H PRN Administration Mild Pain (1-3) or Fever Albuterol 1 puff 05/16/22 00:40 Albuterol Sulfate (*Sp) Aerosol 1 Puff INHALATION Q4H PRN Wheezing Albuterol 2.5 mg 05/16/22 00:40 05/18/22 12:51 Albuterol Sulfate Neb 2.5 Mg/3 Ml Inh INHALATION 2.5 mg Q4-6H PRN Administration Shortness Of Breath Clopidogrel Bisulfate 75 mg 05/16/22 01:30 05/19/22 20:24 Clopidogrel Bisulfate 75 Mg Tablet PO 75 mg HS JUSTIN Administration Gabapentin 300 mg 05/16/22 00:40 05/19/22 21:48 Gabapentin 300 Mg Capsule PO 300 mg HS PRN Administration Pain Guaifenesin 1,200 mg 05/18/22 17:00 05/20/22 09:32 Guaifenesin 12 Hr 600 Mg Tabcr PO 1,200 mg BID JUSTIN Administration Ampicillin Sodium/Sulbactam Sodium 3 gm in 100 mls @ 200 mls/hr 05/18/22 18:00 05/20/22 12:47 Unasyn 3 Gm/Ns 100 Ml IVPB Infused Q6HR JUSTIN Infusion Dextrose/Sodium Chloride 1,000 mls @ 60 mls/hr 05/19/22 17:45 05/20/22 14:21 Dextrose 5% Sodium Chloride 0.9% IV CONT 60 mls/hr .[id number] S
--- NOTE | 2022-05-20 14:37 | PM.IMPN ---
Progress Note: A&P Assessment and Plan (1) Sepsis: Code(s): A41.9 - Sepsis, unspecified organism Status: Acute Assessment and Plan: Sepsis with septicemia secondary to pneumonia and/or UTI. Blood cultures and urine cultures have grown E coli. Blood cultures have also grown Enterococcus. Susceptibilities noted. Completed 5 days of azithromycin. Sputum growing pseudomonas so Levaquin addedl. WBC was markedly elevated but much better today. He is improving clinically. Continue Unasyn and Levaquin. Repeat BCx. (2) Pneumonia: Code(s): J18.9 - Pneumonia, unspecified organism Status: Acute Assessment and Plan: As above. Chest x-ray noted. Had atelectasis versus infiltrate on the left side. He is on appropriate antibiotic coverage. Oxygen able to reduced to baseline use. Possibly a component of aspiration PNA as well. Continue appropriate diet. Continue current antibiotics. continue Unasyn given the concern for possible aspiration. (3) Urinary tract infection: Code(s): N39.0 - Urinary tract infection, site not specified Status: Acute Assessment and Plan: As above. Urine and blood cultures and sensitivities noted. (4) Acute on chronic kidney failure: Code(s): N17.9 - Acute kidney failure, unspecified; N18.9 - Chronic kidney disease, unspecified Status: Acute Assessment and Plan: Patient has chronic kidney disease with best recorded creatinine is 1.7. Creatinine was 2.9 on admisison and has continued to improve improved to 1.7 today. Stop IV fluids (5) Heart failure with preserved ejection fraction: Code(s): I50.30 - Unspecified diastolic (congestive) heart failure Status: Acute Assessment and Plan: Appears compensated. Stop IV fluids. (6) Hypotension: Code(s): I95.9 - Hypotension, unspecified Status: Acute Assessment and Plan: Patient presented with hypotension secondary to sepsis. Now resolved with IV fluids. Resolved. Stop IV fluids. (7) Acute exacerbation of chronic obstructive pulmonary disease: Code(s): J44.1 - Chronic obstructive pulmonary disease with (acute) exacerbation Status: Acute Assessment and Plan: Patient with mild exacerbation of COPD. He had lip pursing and has some wheezing going on exam. He was treated with Solu-Medrol but now weaned off. Continue inhalers (8) Urethral stricture: Code(s): N35.919 - Unspecified urethral stricture, male, unspecified site Status: Acute Assessment and Plan: Continue daily straight cath And p.r.n. (9) Benign prostatic hyperplasia: Code(s): N40.0 - Benign prostatic hyperplasia without lower urinary tract symptoms Status: Acute Assessment and Plan: Stable. Continue Flomax (10) Obstructive sleep apnea: Code(s): G47.33 - Obstructive sleep apnea (adult) (pediatric) Status: Chronic Assessment and Plan: Continue oxygen as per patient's home use. He he states that he does not like you wear CPAP. (11) Transaminitis: Code(s): R74.01 - Elevation of levels of liver transaminase levels Status: Acute Assessment and Plan: Improving (12) Dysphagia: Code(s): R13.10 - Dysphagia, unspecified Status: Acute Assessment and Plan: UGI results noted. Keep HOB elevated. modified barium swallow results noted. Diet has been adjusted. Continue PPI. check zinc level given physical findings. (13) Thrombocytopenia: Code(s): D69.6 - Thrombocytopenia, unspecified Status: Acute Assessment and Plan: Patient has a normal baseline platelet count. He had thrombocytopenia on admission a platelet count of 126 K. This has trended downward every day until yesterday. Platelet count slightly better today at 62 K. suspect related to sepsis and consumption. Will continue to follow. Subjective Date/time seen:
[2022-05-20 20:00] VITALS: PULSE 96; RESP 16; O2SAT 94
[2022-05-20] MEDS: FLUTICASONE/SALMETEROL 230-21 MCG INHALER 1 PUFF 2 PUFF INHALATION (20:52)
[2022-05-20 20:55] VITALS: O2SAT 94
[2022-05-20] MEDS: CLOPIDOGREL BISULFATE 75 MG TABLET PO (21:20)
[2022-05-20] MEDS: MELATONIN 5 MG TABLET PO (21:20)
[2022-05-20] MEDS: PREDNISOLONE ACETATE 0.12% 1 DROP RIGHT EYE (21:21)
[2022-05-20] MEDS: ACETAMINOPHEN 325 MG TABLET 650 MG PO (21:23)
[2022-05-20] MEDS: GABAPENTIN 300 MG CAPSULE PO (21:25)
[2022-05-20 22:04] VITALS: BP 149/75; PULSE 96; RESP 16; TEMP 36.9; O2SAT 94
[2022-05-20] MEDS: ACYCLOVIR SODIUM IVPB 900 MG in DEXTROSE 5% IN WATER 250 ML 266 MG IVPB (22:41)
[2022-05-21] VITALS (12 sets, daily range): BP systolic 128–150; BP diastolic 67–83; PULSE 86–113; RESP 14–20; TEMP 36.2–36.9; O2SAT 96–99
[2022-05-21] MEDS: AMPICILLIN SULB 3 GM/NS 100 ML 3 GM/100 ML VIAL IVPB ×3 (05:30→17:14)
[2022-05-21] MEDS: ACYCLOVIR SODIUM IVPB 900 MG in DEXTROSE 5% IN WATER 250 ML 266 MG IVPB ×3 (05:31→21:07)
[2022-05-21] MEDS: levoFLOXacin 750 MG TABLET PO (05:31)
[2022-05-21 05:49] LABS: Hematocrit 34.9 % (42.0-52.0); Hemoglobin 10.4 g/dL (14.0-18.0); Mean Corpuscular HGB Conc 29.8 g/dl (32-36); Mean Corpuscular Hemoglobin 26.1 pg (26-34); Mean Corpuscular Volume 87.7 fl (80-100); Mean Platelet Volume 11.6 fl (7.4-10.4); Platelet Count Result 93 k/mm3 (150-375); Red Blood Count 3.98 M/mm3 (4.6-6.20); Red Cell Distribution Width 18.5 % (11.5-14.5); White Blood Count 7.6 K/mm3 (4.5-10.0)
[2022-05-21 06:02] LABS: Alanine Aminotransferase 30 U/L (6-50); Albumin Level 2.7 g/dL (3.5-5.1); Alkaline Phosphatase 95 U/L (38-126); Anion Gap 8 mmol/L (8-16); Aspartate Amino Transferase 18 U/L (17-59); Bilirubin,Total 0.6 mg/dL (0.2-1.3); Blood Urea Nitrogen 41 mg/dL (9-20); Carbon Dioxide 26 mmol/L (22-30); Chloride 108 mmol/L (98-107); Estimated CRCL calculation 45 ml/min; Estimated Glomerular Filt Rate 46; Glucose 100 mg/dL (65-110); Magnesium 1.9 mg/dL (1.6-2.3); Potassium 3.7 mmol/L (3.4-5.0); Sodium 142 mmol/L (137-145)
[2022-05-21 06:47] LABS: HIV 1/2 Ab P24 Ag Result Negative (Negative)
[2022-05-21] MEDS: NYSTATIN 100,000 UNITS/ML SUSP 5 ML ORAL.SUSP PO ×4 (07:44→20:15)
[2022-05-21] MEDS: ALBUTEROL SULFATE NEB 2.5 MG/3 ML INH INHALATION ×3 (08:34→21:18)
[2022-05-21] MEDS: FLUTICASONE/SALMETEROL 230-21 MCG INHALER 1 PUFF 2 PUFF INHALATION ×2 (08:35→20:39)
[2022-05-21] MEDS: PREDNISOLONE ACETATE 0.12% 1 DROP RIGHT EYE ×2 (08:57→20:15)
[2022-05-21] MEDS: RIVAROXABAN 2.5 MG TABLET PO ×2 (08:57→20:15)
[2022-05-21] MEDS: TAMSULOSIN HCL 0.4 MG CAPSULE PO (08:57)
[2022-05-21] MEDS: guaiFENesin 12 HR 600 MG TABCR 1200 MG PO ×2 (08:57→17:49)
[2022-05-21] MEDS: PANTOPRAZOLE 40 MG TABLET PO (08:57)
[2022-05-21] MEDS: TRIAMCINOLONE ACET 0.1% OINT 15 GM TUBE 1 APPLIC TOPICAL (08:58)
--- NOTE | 2022-05-21 12:31 | P.PNNP_ITS ---
Progress Note: A&P Assessment and Plan (1) ALFREDO (acute kidney injury): Code(s): N17.9 - Acute kidney failure, unspecified Status: Acute Assessment and Plan: * resolved * admission creatinine 2.9mg/dl * suspect due to infection/early sepsis/bacteremia, prerenal factors (worsen by ongoing diuretic use) and associated hypotension (with continued use of home BP medications) * evaluation to date: * imaging studies without obstruction * normal CPK * urine electrolytes suggest pre-renal azotemia * improvement with IVFs noted (currently off) * holding diuretics * follow trend of labs and UOP (2) Chronic kidney disease, stage IV (severe): Code(s): N18.4 - Chronic kidney disease, stage 4 (severe) Status: Chronic Assessment and Plan: * recently established care with Dr. Kahn * baseline creatinine runs 1.7 - 2.5mg/dl in the last year * however, in the last few months (January - Apr 2022), creatinine has been running closer to 2.35 - 2.5mg/dl * outpatient evaluation indicative of hypertension and vascular disease as etiology (3) Sepsis: Code(s): A41.9 - Sepsis, unspecified organism Status: Acute Assessment and Plan: * due to urinary source as well as pneumonia * urine and blood culture with E.coli and Enterococcus * sputum culture with Pseudomonas * on antibiotic therapy * follow hemodynamics and repeat cultures (4) Urinary tract infection: Code(s): N39.0 - Urinary tract infection, site not specified Status: Acute Assessment and Plan: * urine culture results noted * on antibiotics * see #3 (5) Pneumonia: Code(s): J18.9 - Pneumonia, unspecified organism Status: Acute Assessment and Plan: * admission imaging noted * sputum culture noted * on antibiotic therapy * see #3 (6) Hypotension: Code(s): I95.9 - Hypotension, unspecified Status: Acute Assessment and Plan: * resolved * follow trend hemodynamics * may need to slowly re-introduce BP medications (7) Urethral stricture: Code(s): N35.919 - Unspecified urethral stricture, male, unspecified site Status: Acute Assessment and Plan: * Continue daily straight catheterization and p.r.n. (8) Acute exacerbation of chronic obstructive pulmonary disease: Code(s): J44.1 - Chronic obstructive pulmonary disease with (acute) exacerbation Status: Acute Assessment and Plan: * mild exacerbation of COPD * clinically improving * continue bronchodilators * supplemental oxygen PRN Will continue to follow. Subjective Date/time seen: 05/21/22 12:31 Seems to be doing reasonably well at the time of my visit; sitting up in chair eating lunch when seen; recent modified barium swallow notes patient is at risk for aspiration so diet has been adjusted; noted rash under right eye associated with significant pain concerning for zoster so started on IV acyclovir yesterday; otherwise, does not appear in any distress; no other events overnight or earlier ths AM. Exam Narrative: General: WD/WN male in NAD Heart: normal S1 and S2; no rub Lungs: coarse breath sounds Abdomen: soft, nontender, nondistended, positive bowel sounds Extremities: no cyanosis or clubbing; no edema Skin: warm and intact Objective Data Vital Signs Vital Signs: Vital Signs
--- NOTE | 2022-05-21 12:31 | PM.PNNEP ---
Progress Note: A&P Assessment and Plan (1) ALFREDO (acute kidney injury): Code(s): N17.9 - Acute kidney failure, unspecified Status: Acute Assessment and Plan: resolved admission creatinine 2.9mg/dl suspect due to infection/early sepsis/bacteremia, prerenal factors (worsen by ongoing diuretic use) and associated hypotension (with continued use of home BP medications) evaluation to date: imaging studies without obstruction normal CPK urine electrolytes suggest pre-renal azotemia improvement with IVFs noted (currently off) holding diuretics follow trend of labs and UOP (2) Chronic kidney disease, stage IV (severe): Code(s): N18.4 - Chronic kidney disease, stage 4 (severe) Status: Chronic Assessment and Plan: recently established care with Dr. Kahn baseline creatinine runs 1.7 - 2.5mg/dl in the last year however, in the last few months (January - Apr 2022), creatinine has been running closer to 2.35 - 2.5mg/dl outpatient evaluation indicative of hypertension and vascular disease as etiology (3) Sepsis: Code(s): A41.9 - Sepsis, unspecified organism Status: Acute Assessment and Plan: due to urinary source as well as pneumonia urine and blood culture with E.coli and Enterococcus sputum culture with Pseudomonas on antibiotic therapy follow hemodynamics and repeat cultures (4) Urinary tract infection: Code(s): N39.0 - Urinary tract infection, site not specified Status: Acute Assessment and Plan: urine culture results noted on antibiotics see #3 (5) Pneumonia: Code(s): J18.9 - Pneumonia, unspecified organism Status: Acute Assessment and Plan: admission imaging noted sputum culture noted on antibiotic therapy see #3 (6) Hypotension: Code(s): I95.9 - Hypotension, unspecified Status: Acute Assessment and Plan: resolved follow trend hemodynamics may need to slowly re-introduce BP medications (7) Urethral stricture: Code(s): N35.919 - Unspecified urethral stricture, male, unspecified site Status: Acute Assessment and Plan: Continue daily straight catheterization and p.r.n. (8) Acute exacerbation of chronic obstructive pulmonary disease: Code(s): J44.1 - Chronic obstructive pulmonary disease with (acute) exacerbation Status: Acute Assessment and Plan: mild exacerbation of COPD clinically improving continue bronchodilators supplemental oxygen PRN Will continue to follow. Subjective Date/time seen: 05/21/22 12:31 Seems to be doing reasonably well at the time of my visit; sitting up in chair eating lunch when seen; recent modified barium swallow notes patient is at risk for aspiration so diet has been adjusted; noted rash under right eye associated with significant pain concerning for zoster so started on IV acyclovir yesterday; otherwise, does not appear in any distress; no other events overnight or earlier ths AM. Exam Narrative: General: WD/WN male in NAD Heart: normal S1 and S2; no rub Lungs: coarse breath sounds Abdomen: soft, nontender, nondistended, positive bowel sounds Extremities: no cyanosis or clubbing; no edema Skin: warm and intact Objective Data Vital Signs Vital Signs: Vital Signs Temp Pulse Resp BP Pulse Ox O2 Del Method 05/21/22 08:00 96 Room Air 05/21/22 08:44 88 16 05/21/22 08:34 92 16 05/21/22 06:00 36.7 C 86 18 142/75 H 97 05/20/22 20:00 96 16 94 Room Air 05/20/22 22:04 36.9 C 96 16 149/75 H 94 05/20/22 20:55 94 05/20/22 13:52 36.6 C 94 18 150/73 H 97 Intake/Output Intake/Output: Intake & Output 05/18/22 05/19/22 05/20/22 05/21/22 23:59 23:59 23:59 23:59 Intake Total 3200 1400 2208 570 Output Total 3000 1800 1900 800 Balance 200 -400 308 -230 Meds/Results Medications: Active Medications Generic N
--- NOTE | 2022-05-21 17:31 | PM.IMPN ---
Progress Note: A&P Assessment and Plan (1) Herpes zoster: Code(s): B02.9 - Zoster without complications Status: Acute Assessment and Plan: Patient developed thrush and Nystatin was started. He had some mild angular chelation noted at the time. Last evening, RN called stating patient developed pustules to the right cheek. This was consistent with herpes zoster. This has worsened and appears to be bilateral. His eye does not appear to be involved nor does his ear. Suspect this is V2 distribution. His mucous membranes are involved with the nares and the lips. He may have had zoster in the mouth as well. Do not believe this is Samuels Dejuan's. Will continue IV acyclovir. Will continue the steroid eyedrops for now. Nasal saline. Lubricant to the lips and there is as tolerated. His oral lesions and mild pain is much improved so will continue with nystatin for now. (2) Thrush: Code(s): B37.0 - Candidal stomatitis Status: Acute Assessment and Plan: Patient developed mouth pain on 05/19 with exam consistent with thrush. He is on steroid inhaler. His lips have become more crusted with bleeding. Given the other findings, concerned this is related to zoster. Will treat symptomatically for now. Mouth much clearer so will continue the same for now. (3) Sepsis: Code(s): A41.9 - Sepsis, unspecified organism Status: Acute Assessment and Plan: Sepsis with septicemia secondary to pneumonia and/or UTI. Blood cultures and urine cultures have grown E coli. Blood cultures have also grown Enterococcus. Susceptibilities noted. Completed 5 days of azithromycin. Sputum growing pseudomonas so Levaquin added. WBC was markedly elevated but normal now. Repeat BCx NGTD. He is improving clinically. Continue Unasyn and Levaquin. (4) Pneumonia: Code(s): J18.9 - Pneumonia, unspecified organism Status: Acute Assessment and Plan: Chest x-ray on admission showing bibasilar infiltrates. Cultures as mentioned above. He is on appropriate antibiotic coverage. Weaned to room air. Risk for aspiration so possibly a component of aspiration PNA as well. Continue appropriate diet. Continue Unasyn given the concern for possible aspiration. (5) Urinary tract infection: Code(s): N39.0 - Urinary tract infection, site not specified Status: Acute Assessment and Plan: As above. Urine and blood cultures and sensitivities noted. (6) Acute on chronic kidney failure: Code(s): N17.9 - Acute kidney failure, unspecified; N18.9 - Chronic kidney disease, unspecified Status: Acute Assessment and Plan: Patient has chronic kidney disease with best recorded creatinine is 1.7. Creatinine was 2.9 on admission and has continued to improve to 1.5 today. Continue to monitor. (7) Heart failure with preserved ejection fraction: Code(s): I50.30 - Unspecified diastolic (congestive) heart failure Status: Acute Assessment and Plan: Appears compensated. Lasix and Coreg remain on hold. Follow. Resume half dose Lasix tomorrow. Resume lower dose Coreg as well. (8) Hypotension: Code(s): I95.9 - Hypotension, unspecified Status: Acute Assessment and Plan: Patient presented with hypotension secondary to sepsis. Treated with IV fluids. Now resolved and fluids stopped. (9) Acute exacerbation of chronic obstructive pulmonary disease: Code(s): J44.1 - Chronic obstructive pulmonary disease with (acute) exacerbation Status: Acute Assessment and Plan: Patient with mild exacerbation of COPD. He had lip pursing and has some wheezing on exam. He was treated with Solu-Medrol but now weaned off. Continue inhalers (10) Urethral stricture: Code(s): N35.919 - Unspecified urethral stricture, male, unspecified site Status: Acute Assessment and Plan: Continue daily straight cath and p.r.n. (11)
[2022-05-21] MEDS: SALINE 0.65% NAS SOLN 44 ML BTL 1 SPRAY NASAL (18:55)
[2022-05-21] MEDS: GABAPENTIN 300 MG CAPSULE PO (20:11)
[2022-05-21] MEDS: MELATONIN 5 MG TABLET PO (20:15)
[2022-05-21] MEDS: CLOPIDOGREL BISULFATE 75 MG TABLET PO (20:15)
[2022-05-21] MEDS: carvediloL 12.5 MG TABLET PO (20:15)
[2022-05-21] MEDS: ATORVASTATIN 40 MG TABLET 80 MG PO (20:15)
--- NOTE | 2022-05-21 21:24 | PC.NURSE ---
bladder scanned r/t urgency with difficulty voiding, >270ml , straight cath 300ml
[2022-05-22] VITALS (16 sets, daily range): BP systolic 144–152; BP diastolic 64–77; PULSE 78–100; RESP 14–20; TEMP 36.4–36.7; O2SAT 96–100
[2022-05-22] MEDS: AMPICILLIN SULB 3 GM/NS 100 ML 3 GM/100 ML VIAL IVPB ×4 (00:09→19:28)
[2022-05-22] MEDS: ALBUTEROL SULFATE NEB 2.5 MG/3 ML INH INHALATION ×4 (03:05→19:51)
[2022-05-22] MEDS: ACYCLOVIR SODIUM IVPB 900 MG in DEXTROSE 5% IN WATER 250 ML 266 MG IVPB ×2 (05:01→20:31)
[2022-05-22 05:19] LABS: Basophils Percent Auto 0.3 % (0.2-1.2); Eosinophils Absolute Auto 0.4 K/mm3 (0-0.3); Eosinophils Percent Auto 5.4 % (0-4.4); Hematocrit 33.3 % (42.0-52.0); Hemoglobin 9.8 g/dL (14.0-18.0); Immature Granulocyte Absolute 0.19 K/mm3 (0.00-0.031); Immature Granulocyte Percent A 2.4 % (0-0.5); Lymphocytes Absolute Auto 0.69 K/mm3 (0.9-3.2); Lymphocytes Percent Auto 8.8 % (18.3-44.2); Mean Corpuscular HGB Conc 29.4 g/dl (32-36); Mean Corpuscular Hemoglobin 26.3 pg (26-34); Mean Corpuscular Volume 89.5 fl (80-100); Mean Platelet Volume 10.8 fl (7.4-10.4); Monocytes Absolute Auto 0.6 K/mm3 (0.1-0.6); Monocytes Percent Auto 8.2 % (2.6-8.5); Neutrophils Absolute Auto 5.9 K/mm3 (1.3-6.7); Neutrophils Percent Auto 74.9 % (45.5-73.1); Platelet Count Result 116 k/mm3 (150-375); Red Blood Count 3.72 M/mm3 (4.6-6.20); Red Cell Distribution Width 18.6 % (11.5-14.5); White Blood Count 7.8 K/mm3 (4.5-10.0)
[2022-05-22 05:31] LABS: Alanine Aminotransferase 23 U/L (6-50); Albumin Level 2.5 g/dL (3.5-5.1); Alkaline Phosphatase 82 U/L (38-126); Anion Gap 7 mmol/L (8-16); Aspartate Amino Transferase 15 U/L (17-59); Bilirubin,Total 0.5 mg/dL (0.2-1.3); Blood Urea Nitrogen 32 mg/dL (9-20); Calcium 7.8 mg/dL (8.4-10.2); Carbon Dioxide 27 mmol/L (22-30); Chloride 109 mmol/L (98-107); Estimated CRCL calculation 38 ml/min; Estimated Glomerular Filt Rate 43; Glucose 111 mg/dL (65-110); Magnesium 1.8 mg/dL (1.6-2.3); Phosphorus 3.6 mg/dL (2.5-4.5); Potassium 3.7 mmol/L (3.4-5.0); Sodium 143 mmol/L (137-145)
--- NOTE | 2022-05-22 05:52 | PC.NURSE ---
pt voided standing up in urine 200 ml out
[2022-05-22 07:26] LABS: Anisocytosis 1+ (NORMAL); Ovalocytes 1+ (NORMAL); Platelet Estimate Decreased (Adequate); Schistocytes None Seen (NORMAL)
[2022-05-22 07:27] LABS: Poikilocytosis 1+ (NORMAL)
[2022-05-22] MEDS: NYSTATIN 100,000 UNITS/ML SUSP 5 ML ORAL.SUSP PO ×4 (09:01→20:30)
[2022-05-22] MEDS: TAMSULOSIN HCL 0.4 MG CAPSULE PO (09:02)
[2022-05-22] MEDS: RIVAROXABAN 2.5 MG TABLET PO ×2 (09:02→20:30)
[2022-05-22] MEDS: FUROSEMIDE 20 MG TABLET PO (09:02)
[2022-05-22] MEDS: PANTOPRAZOLE 40 MG TABLET PO (09:02)
[2022-05-22] MEDS: guaiFENesin 12 HR 600 MG TABCR 1200 MG PO ×2 (09:02→19:27)
[2022-05-22] MEDS: PREDNISOLONE ACETATE 0.12% 1 DROP RIGHT EYE ×2 (09:03→20:31)
[2022-05-22] MEDS: carvediloL 12.5 MG TABLET PO ×2 (09:06→20:37)
[2022-05-22] MEDS: FLUTICASONE/SALMETEROL 230-21 MCG INHALER 1 PUFF 2 PUFF INHALATION ×2 (09:12→19:51)
--- NOTE | 2022-05-22 10:10 | P.PNNP_ITS ---
Progress Note: A&P Assessment and Plan (1) ALFREDO (acute kidney injury): Code(s): N17.9 - Acute kidney failure, unspecified Status: Acute Assessment and Plan: * resolved * admission creatinine 2.9mg/dl * suspect due to infection/early sepsis/bacteremia, prerenal factors (worsen by ongoing diuretic use) and associated hypotension (with continued use of home BP medications) * evaluation to date: * imaging studies without obstruction * normal CPK * urine electrolytes suggest pre-renal azotemia * his creatinine has improved to his baseline. (2) Chronic kidney disease, stage IV (severe): Code(s): N18.4 - Chronic kidney disease, stage 4 (severe) Status: Chronic Assessment and Plan: * recently established care with Dr. Kahn * Due to hypertension and vascular disease. * baseline creatinine runs 1.7 - 2.5mg/dl in the last year * however, in the last few months (January - Apr 2022), creatinine has been running closer to 2.35 - 2.5mg/dl (3) Sepsis: Code(s): A41.9 - Sepsis, unspecified organism Status: Acute Assessment and Plan: * due to urinary source as well as pneumonia * urine and blood culture with E.coli and Enterococcus * Repeat cultures negative so far. * sputum culture with Pseudomonas * on Ampicillin and acyclovir. * follow hemodynamics and repeat cultures (4) Urinary tract infection: Code(s): N39.0 - Urinary tract infection, site not specified Status: Acute Assessment and Plan: * On ampicillin (5) Pneumonia: Code(s): J18.9 - Pneumonia, unspecified organism Status: Acute Assessment and Plan: * admission imaging noted * sputum culture noted * on ampicillin (6) Hypotension: Code(s): I95.9 - Hypotension, unspecified Status: Acute Assessment and Plan: * resolved * follow trend hemodynamics (7) Urethral stricture: Code(s): N35.919 - Unspecified urethral stricture, male, unspecified site Status: Acute Assessment and Plan: * Continue daily straight catheterization and p.r.n. (8) Acute exacerbation of chronic obstructive pulmonary disease: Code(s): J44.1 - Chronic obstructive pulmonary disease with (acute) exacerbation Status: Acute Assessment and Plan: * mild exacerbation of COPD * clinically improving * continue bronchodilators * supplemental oxygen PRN Will continue to follow. (9) Hypertension: Qualifiers: Hypertension type: primary hypertension Qualified Code(s): I10 - Essential (primary) hypertension Code(s): I10 - Essential (primary) hypertension Status: Chronic Assessment and Plan: he was on amlodipine carvedilol clonidine and furosemide. Currently he is getting a small dose of furosemide plus carvedilol 12.5 b.i.d.. He just started the latter yesterday and has had 2 doses only. Will wait till tomorrow to adjust meds again. Subjective Date/time seen: 05/22/22 10:10 Interval history: patient in good spirits. He is somewhat uncomfortable with the herpetic blisters/scabs on lips and right face eating okay. Exam Narrative: General: WD/WN male in NAD Heart: normal S1 and S2; no rub or gallop Lungs: Fairly clear breath sounds today Abdomen: soft, nontender, nondistended, positive bowel sounds Extremities: no edema Skin: Herpetic scabs around lips, nose, and right face.
--- NOTE | 2022-05-22 10:10 | PM.PNNEP ---
Progress Note: A&P Assessment and Plan (1) ALFREDO (acute kidney injury): Code(s): N17.9 - Acute kidney failure, unspecified Status: Acute Assessment and Plan: resolved admission creatinine 2.9mg/dl suspect due to infection/early sepsis/bacteremia, prerenal factors (worsen by ongoing diuretic use) and associated hypotension (with continued use of home BP medications) evaluation to date: imaging studies without obstruction normal CPK urine electrolytes suggest pre-renal azotemia his creatinine has improved to his baseline. (2) Chronic kidney disease, stage IV (severe): Code(s): N18.4 - Chronic kidney disease, stage 4 (severe) Status: Chronic Assessment and Plan: recently established care with Dr. Kahn Due to hypertension and vascular disease. baseline creatinine runs 1.7 - 2.5mg/dl in the last year however, in the last few months (January - Apr 2022), creatinine has been running closer to 2.35 - 2.5mg/dl (3) Sepsis: Code(s): A41.9 - Sepsis, unspecified organism Status: Acute Assessment and Plan: due to urinary source as well as pneumonia urine and blood culture with E.coli and Enterococcus Repeat cultures negative so far. sputum culture with Pseudomonas on Ampicillin and acyclovir. follow hemodynamics and repeat cultures (4) Urinary tract infection: Code(s): N39.0 - Urinary tract infection, site not specified Status: Acute Assessment and Plan: On ampicillin (5) Pneumonia: Code(s): J18.9 - Pneumonia, unspecified organism Status: Acute Assessment and Plan: admission imaging noted sputum culture noted on ampicillin (6) Hypotension: Code(s): I95.9 - Hypotension, unspecified Status: Acute Assessment and Plan: resolved follow trend hemodynamics (7) Urethral stricture: Code(s): N35.919 - Unspecified urethral stricture, male, unspecified site Status: Acute Assessment and Plan: Continue daily straight catheterization and p.r.n. (8) Acute exacerbation of chronic obstructive pulmonary disease: Code(s): J44.1 - Chronic obstructive pulmonary disease with (acute) exacerbation Status: Acute Assessment and Plan: mild exacerbation of COPD clinically improving continue bronchodilators supplemental oxygen PRN Will continue to follow. (9) Hypertension: Qualifiers: Hypertension type: primary hypertension Qualified Code(s): I10 - Essential (primary) hypertension Code(s): I10 - Essential (primary) hypertension Status: Chronic Assessment and Plan: he was on amlodipine carvedilol clonidine and furosemide. Currently he is getting a small dose of furosemide plus carvedilol 12.5 b.i.d.. He just started the latter yesterday and has had 2 doses only. Will wait till tomorrow to adjust meds again. Subjective Date/time seen: 05/22/22 10:10 Interval history: patient in good spirits. He is somewhat uncomfortable with the herpetic blisters/scabs on lips and right face eating okay. Exam Narrative: General: WD/WN male in NAD Heart: normal S1 and S2; no rub or gallop Lungs: Fairly clear breath sounds today Abdomen: soft, nontender, nondistended, positive bowel sounds Extremities: no edema Skin: Herpetic scabs around lips, nose, and right face. Objective Data Vital Signs Vital Signs: Vital Signs - 24 hr 05/21/22 14:15 05/21/22 14:24 05/21/22 13:55 Temperature 36.2 C L Pulse Rate 92 92 106 H Respiratory Rate 16 16 18 Blood Pressure 150/83 H Pulse Oximetry 99 Oxygen Delivery Oxygen Flow Rate 05/21/22 20:15 05/21/22 20:43 05/21/22 20:00 Temperature Pulse Rate 113 H 89 113 H Respiratory Rate 14 16 Blood Pressure Pulse Oximetry 99 Oxygen Delivery Room Air Oxygen Flow Rate 05/21/22 21:33 05/21/22 23:32 05/22/22 03:05 T
[2022-05-22] MEDS: ACETAMINOPHEN 325 MG TABLET 650 MG PO ×2 (12:29→20:31)
--- NOTE | 2022-05-22 13:42 | PM.IMPN ---
Progress Note: A&P Assessment and Plan (1) Herpes zoster: Code(s): B02.9 - Zoster without complications Status: Acute Assessment and Plan: Patient developed thrush and Nystatin was started. Patient developed pustules to the right cheek consistent with herpes zoster; developed left side facial symptoms the next day. His eye does not appear to be involved nor does his ear. Suspect this is V2 distribution. His mucous membranes are involved with the nares and the lips. He may have had zoster in the mouth as well but it was mostly thrush since much better with nystatin. Do not believe this is Samuels Dejuan's. Continue IV acyclovir. Will continue the steroid eyedrops for now. Nasal saline spray prn. Lubricant to the lips. His oral lesions and mild pain is much improved so will continue with nystatin for now. (2) Thrush: Code(s): B37.0 - Candidal stomatitis Status: Acute Assessment and Plan: Patient developed mouth pain on 05/19 with exam consistent with thrush. He is on steroid inhaler. His lips have become more crusted with bleeding. Given the other findings, concerned this is related to zoster. Will treat symptomatically for now. Mouth much clearer so will continue the same for now. (3) Sepsis: Code(s): A41.9 - Sepsis, unspecified organism Status: Acute Assessment and Plan: Sepsis with septicemia secondary to pneumonia and/or UTI. Blood cultures and urine cultures have grown E coli. Blood cultures have also grown Enterococcus. Susceptibilities noted. Completed 5 days of azithromycin. Sputum growing pseudomonas so Levaquin added (Day 4). WBC was markedly elevated but normal now. Repeat BCx NGTD. He is improving clinically. Continue Unasyn and Levaquin. (4) Pneumonia: Code(s): J18.9 - Pneumonia, unspecified organism Status: Acute Assessment and Plan: Chest x-ray on admission showing bibasilar infiltrates. Cultures as mentioned above. He is on appropriate antibiotic coverage. Weaned to room air. Risk for aspiration so possibly a component of aspiration PNA as well. Continue appropriate diet. Continue Unasyn given the concern for possible aspiration. (5) Urinary tract infection: Code(s): N39.0 - Urinary tract infection, site not specified Status: Acute Assessment and Plan: As above. Urine and blood cultures and sensitivities noted. (6) Acute on chronic kidney failure: Code(s): N17.9 - Acute kidney failure, unspecified; N18.9 - Chronic kidney disease, unspecified Status: Acute Assessment and Plan: Patient has chronic kidney disease with best recorded creatinine is 1.7. Creatinine was 2.9 on admission and has improved. Continue to monitor. (7) Heart failure with preserved ejection fraction: Code(s): I50.30 - Unspecified diastolic (congestive) heart failure Status: Acute Assessment and Plan: Appears compensated. Lasix and Coreg were on hold but able to resume. Follow. (8) Hypotension: Code(s): I95.9 - Hypotension, unspecified Status: Acute Assessment and Plan: Patient presented with hypotension secondary to sepsis. Treated with IV fluids. Now resolved and fluids stopped. (9) Acute exacerbation of chronic obstructive pulmonary disease: Code(s): J44.1 - Chronic obstructive pulmonary disease with (acute) exacerbation Status: Acute Assessment and Plan: Patient with mild exacerbation of COPD. He had lip pursing and has some wheezing on exam. He was treated with Solu-Medrol but now weaned off. Continue inhalers (10) Urethral stricture: Code(s): N35.919 - Unspecified urethral stricture, male, unspecified site Status: Acute Assessment and Plan: Continue daily straight cath and p.r.n. (11) Benign prostatic hyperplasia: Code(s): N40.0 - Benign prostatic hyperplasia without lower urinary tract symptoms
[2022-05-22] MEDS: MELATONIN 5 MG TABLET PO (20:30)
[2022-05-22] MEDS: GABAPENTIN 300 MG CAPSULE PO (20:31)
[2022-05-22] MEDS: CLOPIDOGREL BISULFATE 75 MG TABLET PO (20:31)
[2022-05-22] MEDS: ATORVASTATIN 40 MG TABLET 80 MG PO (20:31)
[2022-05-23] VITALS (13 sets, daily range): BP systolic 135–175; BP diastolic 68–87; PULSE 80–96; RESP 14–20; TEMP 36.2–36.8; O2SAT 98–100
[2022-05-23] MEDS: AMPICILLIN SULB 3 GM/NS 100 ML 3 GM/100 ML VIAL IVPB ×5 (00:01→23:39)
[2022-05-23 05:24] LABS: Hematocrit 32.7 % (42.0-52.0); Hemoglobin 9.7 g/dL (14.0-18.0); Mean Corpuscular HGB Conc 29.7 g/dl (32-36); Mean Corpuscular Hemoglobin 26.6 pg (26-34); Mean Corpuscular Volume 89.6 fl (80-100); Mean Platelet Volume 11.2 fl (7.4-10.4); Platelet Count Result 191 k/mm3 (150-375); Red Blood Count 3.65 M/mm3 (4.6-6.20); Red Cell Distribution Width 18.6 % (11.5-14.5); White Blood Count 8.3 K/mm3 (4.5-10.0)
[2022-05-23 05:44] LABS: Albumin Level 2.6 g/dL (3.5-5.1); Anion Gap 5 mmol/L (8-16); Blood Urea Nitrogen 27 mg/dL (9-20); Calcium 7.6 mg/dL (8.4-10.2); Carbon Dioxide 28 mmol/L (22-30); Chloride 108 mmol/L (98-107); Estimated CRCL calculation 46 ml/min; Estimated Glomerular Filt Rate 46; Glucose 89 mg/dL (65-110); Phosphorus 4.1 mg/dL (2.5-4.5); Potassium 3.8 mmol/L (3.4-5.0); Sodium 141 mmol/L (137-145)
[2022-05-23] MEDS: ACYCLOVIR SODIUM IVPB 900 MG in DEXTROSE 5% IN WATER 250 ML 266 MG IVPB (08:01)
[2022-05-23] MEDS: guaiFENesin 12 HR 600 MG TABCR 1200 MG PO ×2 (08:01→16:29)
[2022-05-23] MEDS: RIVAROXABAN 2.5 MG TABLET PO ×2 (08:03→20:57)
[2022-05-23] MEDS: PANTOPRAZOLE 40 MG TABLET PO (08:03)
[2022-05-23] MEDS: carvediloL 12.5 MG TABLET PO (08:03)
[2022-05-23] MEDS: TAMSULOSIN HCL 0.4 MG CAPSULE PO (08:05)
[2022-05-23] MEDS: FUROSEMIDE 20 MG TABLET PO (08:05)
[2022-05-23] MEDS: levoFLOXacin 750 MG TABLET PO (08:05)
[2022-05-23] MEDS: PREDNISOLONE ACETATE 0.12% 1 DROP RIGHT EYE (08:05)
[2022-05-23] MEDS: NYSTATIN 100,000 UNITS/ML SUSP 5 ML ORAL.SUSP PO ×4 (08:05→20:57)
[2022-05-23] MEDS: ACETAMINOPHEN 325 MG TABLET 650 MG PO (08:09)
[2022-05-23] MEDS: FLUTICASONE/SALMETEROL 230-21 MCG INHALER 1 PUFF 2 PUFF INHALATION (08:29)
[2022-05-23] MEDS: ALBUTEROL SULFATE NEB 2.5 MG/3 ML INH INHALATION ×3 (08:29→21:35)
[2022-05-23] MEDS: UMECLIDINIUM BROMIDE 62.5 MCG ELLIPTA 1 PUFF INHALATION ×2 (09:44→21:35)
--- NOTE | 2022-05-23 10:12 | P.PNNP_ITS ---
Progress Note: A&P Assessment and Plan (1) ALFREDO (acute kidney injury): Code(s): N17.9 - Acute kidney failure, unspecified Status: Acute Assessment and Plan: * resolved * admission creatinine 2.9mg/dl * suspect due to infection/early sepsis/bacteremia, prerenal factors (worsen by ongoing diuretic use) and associated hypotension (with continued use of home BP medications) * evaluation to date: * imaging studies without obstruction * normal CPK * urine electrolytes suggest pre-renal azotemia * his creatinine has improved to his baseline. today it is 1.5. (2) Chronic kidney disease, stage IV (severe): Code(s): N18.4 - Chronic kidney disease, stage 4 (severe) Status: Chronic Assessment and Plan: * recently established care with Dr. Kahn * Due to hypertension and vascular disease. * Now the GFR is in the range CKD stage IIIA. Will see what happens going forward * baseline creatinine runs 1.7 - 2.5mg/dl in the last year * however, in the last few months (January - Apr 2022), creatinine has been running closer to 2.35 - 2.5mg/dl (3) Sepsis: Code(s): A41.9 - Sepsis, unspecified organism Status: Acute Assessment and Plan: * due to urinary source as well as pneumonia * urine and blood culture with E.coli and Enterococcus * Repeat cultures negative so far. * sputum culture with Pseudomonas * on Ampicillin and acyclovir. * follow hemodynamics and repeat cultures (4) Pneumonia: Code(s): J18.9 - Pneumonia, unspecified organism Status: Acute Assessment and Plan: * admission imaging noted * sputum culture noted * on ampicillin (5) Hypotension: Code(s): I95.9 - Hypotension, unspecified Status: Acute Assessment and Plan: * resolved (6) Urethral stricture: Code(s): N35.919 - Unspecified urethral stricture, male, unspecified site Status: Acute Assessment and Plan: * Continue daily straight catheterization and p.r.n. (7) Acute exacerbation of chronic obstructive pulmonary disease: Code(s): J44.1 - Chronic obstructive pulmonary disease with (acute) exacerbation Status: Acute Assessment and Plan: * mild exacerbation of COPD * clinically improving * continue supportive care. (8) Hypertension: Qualifiers: Hypertension type: primary hypertension Qualified Code(s): I10 - Essential (primary) hypertension Code(s): I10 - Essential (primary) hypertension Status: Chronic Assessment and Plan: he was on amlodipine carvedilol clonidine and furosemide. Currently he is getting a small dose of furosemide plus carvedilol 12.5 b .i.d.. His blood pressure is on the rise. Will resume amlodipine and full dose carvedilol. Subjective Date/time seen: 05/23/22 10:12 Interval history: patient in good spirits. He is up in a chair. Just finished breakfast. eating okay. Exam Narrative: General: WD/WN male in NAD Heart: normal S1 and S2; no rub or gallop Lungs: Fairly clear breath sounds today Abdomen: soft, nontender, nondistended, positive bowel sounds Extremities: no edema or cyanosis Skin: Herpetic scabs around lips, nose, and right face. they seem to be less erythematous Objective Data Vital Signs Vital Signs: Vital Signs - 24 hr 05/22/22 11:32 05/22/22 14:40 05/22/22
--- NOTE | 2022-05-23 10:12 | PM.PNNEP ---
Progress Note: A&P Assessment and Plan (1) ALFREDO (acute kidney injury): Code(s): N17.9 - Acute kidney failure, unspecified Status: Acute Assessment and Plan: resolved admission creatinine 2.9mg/dl suspect due to infection/early sepsis/bacteremia, prerenal factors (worsen by ongoing diuretic use) and associated hypotension (with continued use of home BP medications) evaluation to date: imaging studies without obstruction normal CPK urine electrolytes suggest pre-renal azotemia his creatinine has improved to his baseline. today it is 1.5. (2) Chronic kidney disease, stage IV (severe): Code(s): N18.4 - Chronic kidney disease, stage 4 (severe) Status: Chronic Assessment and Plan: recently established care with Dr. Kahn Due to hypertension and vascular disease. Now the GFR is in the range CKD stage IIIA. Will see what happens going forward baseline creatinine runs 1.7 - 2.5mg/dl in the last year however, in the last few months (January - Apr 2022), creatinine has been running closer to 2.35 - 2.5mg/dl (3) Sepsis: Code(s): A41.9 - Sepsis, unspecified organism Status: Acute Assessment and Plan: due to urinary source as well as pneumonia urine and blood culture with E.coli and Enterococcus Repeat cultures negative so far. sputum culture with Pseudomonas on Ampicillin and acyclovir. follow hemodynamics and repeat cultures (4) Pneumonia: Code(s): J18.9 - Pneumonia, unspecified organism Status: Acute Assessment and Plan: admission imaging noted sputum culture noted on ampicillin (5) Hypotension: Code(s): I95.9 - Hypotension, unspecified Status: Acute Assessment and Plan: resolved (6) Urethral stricture: Code(s): N35.919 - Unspecified urethral stricture, male, unspecified site Status: Acute Assessment and Plan: Continue daily straight catheterization and p.r.n. (7) Acute exacerbation of chronic obstructive pulmonary disease: Code(s): J44.1 - Chronic obstructive pulmonary disease with (acute) exacerbation Status: Acute Assessment and Plan: mild exacerbation of COPD clinically improving continue supportive care. (8) Hypertension: Qualifiers: Hypertension type: primary hypertension Qualified Code(s): I10 - Essential (primary) hypertension Code(s): I10 - Essential (primary) hypertension Status: Chronic Assessment and Plan: he was on amlodipine carvedilol clonidine and furosemide. Currently he is getting a small dose of furosemide plus carvedilol 12.5 b.i.d.. His blood pressure is on the rise. Will resume amlodipine and full dose carvedilol. Subjective Date/time seen: 05/23/22 10:12 Interval history: patient in good spirits. He is up in a chair. Just finished breakfast. eating okay. Exam Narrative: General: WD/WN male in NAD Heart: normal S1 and S2; no rub or gallop Lungs: Fairly clear breath sounds today Abdomen: soft, nontender, nondistended, positive bowel sounds Extremities: no edema or cyanosis Skin: Herpetic scabs around lips, nose, and right face. they seem to be less erythematous Objective Data Vital Signs Vital Signs: Vital Signs - 24 hr 05/22/22 11:32 05/22/22 14:40 05/22/22 14:51 Temperature Pulse Rate 95 85 Respiratory Rate 18 18 Blood Pressure Pulse Oximetry Oxygen Delivery Room Air 05/22/22 14:16 05/22/22 19:50 05/22/22 19:50 Temperature 36.4 C L Pulse Rate 83 99 99 Respiratory Rate 19 20 Blood Pressure 144/72 H Pulse Oximetry 99 97 Oxygen Delivery Room Air 05/22/22 20:04 05/22/22 20:04 05/22/22 20:36 Temperature Pulse Rate 91 98 Respiratory Rate 20 18 Blood Pressure 152/77 H Pulse Oximetry 97 96 Oxygen Delivery 05/22/22 20:37 05/22/22 20:48 05/22/22 20:00 Temperature 36.7 C
[2022-05-23] MEDS: amLODIPine BESYLATE 5 MG TABLET 10 MG PO (10:56)
[2022-05-23 16:23] LABS: Zinc 34 mcg/dL (60-130)
--- NOTE | 2022-05-23 16:32 | PM.IMPN ---
Progress Note: A&P Assessment and Plan (1) Herpes zoster: Code(s): B02.9 - Zoster without complications Status: Acute Assessment and Plan: Patient developed thrush and Nystatin was started. Patient developed pustules to the right cheek consistent with herpes zoster; developed left side facial lesions the next day. His eye does not appear to be involved nor does his ear. Suspect this is V2 distribution. His mucous membranes are involved with the nares and the lips. He may have had zoster in the mouth as well but it was mostly thrush since much better with nystatin. Do not believe this is Samuels Dejuan's. Continue IV acyclovir. Will stop the steroid eyedrops now. Continue Nasal saline spray prn and lubricant to the lips. Condition improving. (2) Thrush: Code(s): B37.0 - Candidal stomatitis Status: Acute Assessment and Plan: Patient developed mouth pain on 05/19 with exam consistent with thrush. He is on steroid inhaler. His lips have become more crusted with bleeding. Given the other findings, concerned this is related to zoster. Will continue current treatment now. (3) Sepsis: Code(s): A41.9 - Sepsis, unspecified organism Status: Acute Assessment and Plan: Sepsis with septicemia secondary to pneumonia and/or UTI. Blood cultures and urine cultures have grown E coli. Blood cultures have also grown Enterococcus. Susceptibilities noted. Completed 5 days of azithromycin. Sputum growing pseudomonas so Levaquin added (05/19 at 8am). WBC was markedly elevated but normal now. Repeat BCx NGTD from 05/20. He is improving clinically. Continue Unasyn and Levaquin. (4) Pneumonia: Code(s): J18.9 - Pneumonia, unspecified organism Status: Acute Assessment and Plan: Chest x-ray on admission showing bibasilar infiltrates. Cultures as mentioned above. He is on appropriate antibiotic coverage. Weaned to room air. Risk for aspiration so possibly a component of aspiration PNA as well. Continue appropriate diet. Continue Unasyn given the concern for possible aspiration. (5) Urinary tract infection: Code(s): N39.0 - Urinary tract infection, site not specified Status: Acute Assessment and Plan: As above. Urine and blood cultures and sensitivities noted. (6) Acute on chronic kidney failure: Code(s): N17.9 - Acute kidney failure, unspecified; N18.9 - Chronic kidney disease, unspecified Status: Acute Assessment and Plan: Patient has chronic kidney disease with creatinine running 1.6-2.4. Creatinine was 2.9 on admission and has improved to 1.5 today. Continue to monitor. (7) Heart failure with preserved ejection fraction: Code(s): I50.30 - Unspecified diastolic (congestive) heart failure Status: Acute Assessment and Plan: Appears compensated. Lasix and Coreg were on hold but able to resume. Follow. (8) Hypotension: Code(s): I95.9 - Hypotension, unspecified Status: Acute Assessment and Plan: Patient presented with hypotension secondary to sepsis. Treated with IV fluids. Now resolved and fluids stopped. (9) Acute exacerbation of chronic obstructive pulmonary disease: Code(s): J44.1 - Chronic obstructive pulmonary disease with (acute) exacerbation Status: Acute Assessment and Plan: Patient with mild exacerbation of COPD. He had lip pursing and has some wheezing on exam. He was treated with Solu-Medrol but now weaned off. Continue inhalers (10) Urethral stricture: Code(s): N35.919 - Unspecified urethral stricture, male, unspecified site Status: Acute Assessment and Plan: Continue daily straight cath and p.r.n. (11) Benign prostatic hyperplasia: Code(s): N40.0 - Benign prostatic hyperplasia without lower urinary tract symptoms Status: Acute Assessment and Plan: Stable. Continue Flomax (12) Obstructive sleep
[2022-05-23] MEDS: ATORVASTATIN 40 MG TABLET 80 MG PO (20:57)
[2022-05-23] MEDS: MELATONIN 5 MG TABLET PO (20:57)
[2022-05-23] MEDS: ACYCLOVIR SODIUM IVPB 900 MG in DEXTROSE 5% IN WATER 250 ML 250 MG IVPB (20:57)
[2022-05-23] MEDS: CLOPIDOGREL BISULFATE 75 MG TABLET PO (20:57)
[2022-05-23] MEDS: carvediloL 25 MG TABLET PO (20:58)
[2022-05-23] MEDS: GABAPENTIN 300 MG CAPSULE PO (21:34)
[2022-05-24] VITALS (9 sets, daily range): BP systolic 127–158; BP diastolic 56–68; PULSE 77–88; RESP 16–20; TEMP 36.4–36.8; O2SAT 95–100
[2022-05-24] MEDS: AMPICILLIN SULB 3 GM/NS 100 ML 3 GM/100 ML VIAL IVPB ×2 (06:14→13:00)
[2022-05-24 06:26] LABS: Albumin Level 2.6 g/dL (3.5-5.1); Anion Gap 5 mmol/L (8-16); Blood Urea Nitrogen 22 mg/dL (9-20); Calcium 7.7 mg/dL (8.4-10.2); Carbon Dioxide 29 mmol/L (22-30); Chloride 105 mmol/L (98-107); Estimated CRCL calculation 46 ml/min; Estimated Glomerular Filt Rate 46; Glucose 84 mg/dL (65-110); Phosphorus 3.8 mg/dL (2.5-4.5); Potassium 3.7 mmol/L (3.4-5.0); Sodium 139 mmol/L (137-145)
[2022-05-24] MEDS: FLUTICASONE/SALMETEROL 230-21 MCG INHALER 1 PUFF 2 PUFF INHALATION ×2 (08:13→20:20)
[2022-05-24] MEDS: FUROSEMIDE 20 MG TABLET PO (08:29)
[2022-05-24] MEDS: TAMSULOSIN HCL 0.4 MG CAPSULE PO (08:34)
[2022-05-24] MEDS: guaiFENesin 12 HR 600 MG TABCR 1200 MG PO ×2 (08:34→16:12)
[2022-05-24] MEDS: amLODIPine BESYLATE 5 MG TABLET 10 MG PO (08:34)
[2022-05-24] MEDS: carvediloL 25 MG TABLET PO ×2 (08:34→21:05)
[2022-05-24] MEDS: RIVAROXABAN 2.5 MG TABLET PO (08:34)
[2022-05-24] MEDS: NYSTATIN 100,000 UNITS/ML SUSP 5 ML ORAL.SUSP PO ×4 (08:36→21:06)
[2022-05-24] MEDS: PANTOPRAZOLE 40 MG TABLET PO (08:36)
[2022-05-24] MEDS: TRIAMCINOLONE ACET 0.1% OINT 15 GM TUBE 1 APPLIC TOPICAL (08:36)
--- NOTE | 2022-05-24 09:09 | PCPTNOTE ---
Attempted to see patient for PT at this time, however patient was eating breakfast.
--- NOTE | 2022-05-24 10:27 | PCPTNOTE ---
Attempted to see patient for PT at this time, however patient was working with OT.
[2022-05-24] MEDS: ACYCLOVIR SODIUM IVPB 900 MG in DEXTROSE 5% IN WATER 250 ML 266 MG IVPB (10:41)
--- NOTE | 2022-05-24 11:38 | PCNWS ---
Weekly nutritional screen. Patient is tolerating current heart healthy diet, level 6 consistency, level 2 liquids with adequate intake at 75-100%. Reports good intake and tolerance. No weight loss reported. No nutrition concerns. No nutritional needs at this time.
[2022-05-24] MEDS: ZINC SULFATE 220 MG CAPSULE PO (12:11)
--- NOTE | 2022-05-24 15:03 | P.PNNP_ITS ---
Progress Note: A&P Assessment and Plan (1) ALFREDO (acute kidney injury): Code(s): N17.9 - Acute kidney failure, unspecified Status: Acute Assessment and Plan: * resolved * admission creatinine 2.9mg/dl * suspect due to infection/early sepsis/bacteremia, prerenal factors (worsen by ongoing diuretic use) and associated hypotension (with continued use of home BP medications) * evaluation to date: * imaging studies without obstruction * normal CPK * urine electrolytes suggest pre-renal azotemia * his creatinine has settled in at about 1.5. (2) Chronic kidney disease, stage IV (severe): Code(s): N18.4 - Chronic kidney disease, stage 4 (severe) Status: Chronic Assessment and Plan: * recently established care with Dr. Kahn * Due to hypertension and vascular disease. * Now the GFR is in the range CKD stage IIIA. Will see what happens going forward (3) Sepsis: Code(s): A41.9 - Sepsis, unspecified organism Status: Acute Assessment and Plan: * due to urinary source as well as pneumonia * urine and blood culture with E.coli and Enterococcus * Repeat cultures negative so far. * sputum culture with Pseudomonas * on Ampicillin and acyclovir. * He is getting a [facility] for administration of antibiotics at home. (4) Pneumonia: Code(s): J18.9 - Pneumonia, unspecified organism Status: Acute Assessment and Plan: * admission imaging noted * sputum culture noted * on ampicillin (5) Hypotension: Code(s): I95.9 - Hypotension, unspecified Status: Acute Assessment and Plan: * resolved (6) Urethral stricture: Code(s): N35.919 - Unspecified urethral stricture, male, unspecified site Status: Acute Assessment and Plan: * Continue daily straight catheterization and p.r.n. (7) Acute exacerbation of chronic obstructive pulmonary disease: Code(s): J44.1 - Chronic obstructive pulmonary disease with (acute) exacerbation Status: Acute Assessment and Plan: * mild exacerbation of COPD * clinically improving * continue supportive care. (8) Hypertension: Qualifiers: Hypertension type: primary hypertension Qualified Code(s): I10 - Essential (primary) hypertension Code(s): I10 - Essential (primary) hypertension Status: Chronic Assessment and Plan: he was on amlodipine carvedilol clonidine and furosemide at home. Currently he is getting amlodipine 10, carvedilol 25 twice a day, and furosemide 20 mg daily. His blood pressure is better today. Continue same medicine. Subjective Date/time seen: 05/24/22 15:03 Interval history: patient in good spirits. shingles scabs feel better. eating okay. Exam Narrative: General: WD/WN male in NAD Heart: normal S1 and S2; no rub or gallop Lungs: Clear bilaterally Abdomen: soft, nontender, nondistended, positive bowel sounds Extremities: no edema Skin: Herpetic scabs around lips, nose, and right face. Scabs are falling off. Things are looking better. Objective Data Vital Signs Vital Signs: Vital Signs - 24 hr 05/23/22 20:49 05/23/22 20:58 05/23/22 21:30 Temperature 36.3 C L Pulse Rate 93 93 86 Respiratory Rate 18 Blood Pressure 154/87 H Pulse Oximetry 100 98 Oxygen Delivery
--- NOTE | 2022-05-24 15:03 | PM.PNNEP ---
Progress Note: A&P Assessment and Plan (1) ALFREDO (acute kidney injury): Code(s): N17.9 - Acute kidney failure, unspecified Status: Acute Assessment and Plan: resolved admission creatinine 2.9mg/dl suspect due to infection/early sepsis/bacteremia, prerenal factors (worsen by ongoing diuretic use) and associated hypotension (with continued use of home BP medications) evaluation to date: imaging studies without obstruction normal CPK urine electrolytes suggest pre-renal azotemia his creatinine has settled in at about 1.5. (2) Chronic kidney disease, stage IV (severe): Code(s): N18.4 - Chronic kidney disease, stage 4 (severe) Status: Chronic Assessment and Plan: recently established care with Dr. Kahn Due to hypertension and vascular disease. Now the GFR is in the range CKD stage IIIA. Will see what happens going forward (3) Sepsis: Code(s): A41.9 - Sepsis, unspecified organism Status: Acute Assessment and Plan: due to urinary source as well as pneumonia urine and blood culture with E.coli and Enterococcus Repeat cultures negative so far. sputum culture with Pseudomonas on Ampicillin and acyclovir. He is getting a [facility] for administration of antibiotics at home. (4) Pneumonia: Code(s): J18.9 - Pneumonia, unspecified organism Status: Acute Assessment and Plan: admission imaging noted sputum culture noted on ampicillin (5) Hypotension: Code(s): I95.9 - Hypotension, unspecified Status: Acute Assessment and Plan: resolved (6) Urethral stricture: Code(s): N35.919 - Unspecified urethral stricture, male, unspecified site Status: Acute Assessment and Plan: Continue daily straight catheterization and p.r.n. (7) Acute exacerbation of chronic obstructive pulmonary disease: Code(s): J44.1 - Chronic obstructive pulmonary disease with (acute) exacerbation Status: Acute Assessment and Plan: mild exacerbation of COPD clinically improving continue supportive care. (8) Hypertension: Qualifiers: Hypertension type: primary hypertension Qualified Code(s): I10 - Essential (primary) hypertension Code(s): I10 - Essential (primary) hypertension Status: Chronic Assessment and Plan: he was on amlodipine carvedilol clonidine and furosemide at home. Currently he is getting amlodipine 10, carvedilol 25 twice a day, and furosemide 20 mg daily. His blood pressure is better today. Continue same medicine. Subjective Date/time seen: 05/24/22 15:03 Interval history: patient in good spirits. shingles scabs feel better. eating okay. Exam Narrative: General: WD/WN male in NAD Heart: normal S1 and S2; no rub or gallop Lungs: Clear bilaterally Abdomen: soft, nontender, nondistended, positive bowel sounds Extremities: no edema Skin: Herpetic scabs around lips, nose, and right face. Scabs are falling off. Things are looking better. Objective Data Vital Signs Vital Signs: Vital Signs - 24 hr 05/23/22 20:49 05/23/22 20:58 05/23/22 21:30 Temperature 36.3 C L Pulse Rate 93 93 86 Respiratory Rate 18 Blood Pressure 154/87 H Pulse Oximetry 100 98 Oxygen Delivery Room Air 05/23/22 21:30 05/23/22 21:38 05/23/22 21:38 Temperature Pulse Rate 86 86 Respiratory Rate 20 20 Blood Pressure Pulse Oximetry 98 Oxygen Delivery 05/24/22 01:56 05/24/22 02:08 05/24/22 05:05 Temperature 36.4 C Pulse Rate 78 82 77 Respiratory Rate 20 20 20 Blood Pressure 158/67 H Pulse Oximetry 100 Oxygen Delivery 05/24/22 08:34 05/24/22 08:26 05/24/22 14:30 Temperature 36.8 C Pulse Rate 78 77 Respiratory Rate 16 Blood Pressure 127/56 L Pulse Oximetry 95 Oxygen Delivery Room Air Intake/Output Intake/Output: Intake & Output 05/21/22
--- NOTE | 2022-05-24 15:04 | PM.IMPN ---
Progress Note: A&P Assessment and Plan (1) Herpes zoster: Code(s): B02.9 - Zoster without complications Status: Acute Assessment and Plan: Patient developed pustules to the right cheek consistent with herpes zoster; developed left side facial lesions the next day. His eye does not appear to be involved nor does his ear. Suspect this is V2 distribution. His mucous membranes are involved with the nares and the lips. He did have oral lesions but these have healed. He may have had zoster in the mouth as well but it was mostly thrush since much better with nystatin. Do not believe this is Samuels Dejuan's. Continue IV acyclovir. Continue Nasal saline spray prn and lubricant to the lips. Condition improving. (2) Thrush: Code(s): B37.0 - Candidal stomatitis Status: Acute Assessment and Plan: Patient developed mouth pain on 05/19 with exam consistent with thrush. He is on steroid inhaler. His lips have become more crusted with bleeding. Given the other findings, concerned taht part of his findigs related to zoster. Will continue current treatment now. (3) Sepsis: Code(s): A41.9 - Sepsis, unspecified organism Status: Acute Assessment and Plan: Sepsis with septicemia secondary to pneumonia and/or UTI. Blood cultures and urine cultures have grown E coli. Blood cultures have also grown Enterococcus. Susceptibilities noted. Completed 5 days of azithromycin. Sputum growing pseudomonas so Levaquin added (05/19 at 8am). WBC was markedly elevated but normal now. Repeat BCx NGTD from 05/20. He is improving clinically. Continue Unasyn and Levaquin. Discussed with PharnD ID. Plan to change to Ampicillin for home and treat through 06/02 (2 weeks after negative BCx). Care coordination notified. (4) Pneumonia: Code(s): J18.9 - Pneumonia, unspecified organism Status: Acute Assessment and Plan: Chest x-ray on admission showing bibasilar infiltrates. Cultures as mentioned above. He is on appropriate antibiotic coverage. Weaned to room air. Risk for aspiration so possibly a component of aspiration PNA as well. Continue appropriate diet. Completed a course for aspiration so okay to change to Ampicillin. (5) Urinary tract infection: Code(s): N39.0 - Urinary tract infection, site not specified Status: Acute Assessment and Plan: As above. Urine and blood cultures and sensitivities noted. (6) Acute on chronic kidney failure: Code(s): N17.9 - Acute kidney failure, unspecified; N18.9 - Chronic kidney disease, unspecified Status: Acute Assessment and Plan: Patient has chronic kidney disease with creatinine running 1.6-2.4. Creatinine was 2.9 on admission and has improved to 1.5 today. Continue to monitor. (7) Heart failure with preserved ejection fraction: Code(s): I50.30 - Unspecified diastolic (congestive) heart failure Status: Acute Assessment and Plan: Appears compensated. Lasix and Coreg were on hold but able to resume. Follow. (8) Hypotension: Code(s): I95.9 - Hypotension, unspecified Status: Acute Assessment and Plan: Patient presented with hypotension secondary to sepsis. Treated with IV fluids. Now resolved and fluids stopped. (9) Acute exacerbation of chronic obstructive pulmonary disease: Code(s): J44.1 - Chronic obstructive pulmonary disease with (acute) exacerbation Status: Acute Assessment and Plan: Patient with mild exacerbation of COPD. He had lip pursing and has some wheezing on exam. He was treated with Solu-Medrol but now weaned off. Continue inhalers (10) Urethral stricture: Code(s): N35.919 - Unspecified urethral stricture, male, unspecified site Status: Acute Assessment and Plan: Continue daily straight cath and p.r.n. (11) Benign prostatic hyperplasia: Code(s): N40.0 - Benign prostatic hyperplasia without
[2022-05-24] MEDS: AMPICILLIN 2 GM/NS 100 ML 2 GM/100 ML BAG IVPB (17:14)
[2022-05-24] MEDS: ACYCLOVIR SODIUM IVPB 900 MG in DEXTROSE 5% IN WATER 250 ML 250 MG IVPB (20:03)
[2022-05-24] MEDS: ACETAMINOPHEN 325 MG TABLET 650 MG PO (20:06)
[2022-05-24] MEDS: UMECLIDINIUM BROMIDE 62.5 MCG ELLIPTA 1 PUFF INHALATION (20:20)
[2022-05-24] MEDS: ALBUTEROL SULFATE NEB 2.5 MG/3 ML INH INHALATION (20:20)
[2022-05-24] MEDS: ATORVASTATIN 40 MG TABLET 80 MG PO (21:04)
[2022-05-24] MEDS: MELATONIN 5 MG TABLET PO (21:06)
[2022-05-24] MEDS: GABAPENTIN 300 MG CAPSULE PO (21:11)
[2022-05-25] VITALS (7 sets, daily range): BP systolic 109–129; BP diastolic 51–78; PULSE 68–90; RESP 14–20; TEMP 36.4–36.9; O2SAT 93–98
[2022-05-25] MEDS: AMPICILLIN 2 GM/NS 100 ML 2 GM/100 ML BAG IVPB ×4 (00:41→17:20)
[2022-05-25] MEDS: levoFLOXacin 750 MG TABLET PO (06:29)
[2022-05-25] MEDS: ACYCLOVIR SODIUM IVPB 900 MG in DEXTROSE 5% IN WATER 250 ML 250 MG IVPB ×2 (08:36→20:32)
[2022-05-25] MEDS: carvediloL 25 MG TABLET PO ×2 (08:41→20:33)
[2022-05-25] MEDS: FUROSEMIDE 20 MG TABLET PO (08:41)
[2022-05-25] MEDS: amLODIPine BESYLATE 5 MG TABLET 10 MG PO (08:41)
[2022-05-25] MEDS: guaiFENesin 12 HR 600 MG TABCR 1200 MG PO ×2 (08:42→17:22)
[2022-05-25] MEDS: NYSTATIN 100,000 UNITS/ML SUSP 5 ML ORAL.SUSP PO ×4 (08:43→20:33)
[2022-05-25] MEDS: TRIAMCINOLONE ACET 0.1% OINT 15 GM TUBE 1 APPLIC TOPICAL (08:44)
[2022-05-25] MEDS: TAMSULOSIN HCL 0.4 MG CAPSULE PO (08:44)
[2022-05-25] MEDS: PANTOPRAZOLE 40 MG TABLET PO (08:55)
[2022-05-25] MEDS: FLUTICASONE/SALMETEROL 230-21 MCG INHALER 1 PUFF 2 PUFF INHALATION ×2 (10:16→21:03)
[2022-05-25] MEDS: LIDOCAINE HCL 1% LOCAL INJ 2 ML AMPUL 5 ML INFILTRATE (10:40)
[2022-05-25] MEDS: ZINC SULFATE 220 MG CAPSULE PO (11:58)
[2022-05-25] MEDS: ACETAMINOPHEN 325 MG TABLET 650 MG PO ×2 (12:16→20:39)
[2022-05-25] MEDS: traMADol HCL (*CRX) 50 MG TABLET PO (12:17)
[2022-05-25] MEDS: CENTRAL LINE FLUSH 10 ML IV PUSH ×3 (13:01→22:08)
--- NOTE | 2022-05-25 15:43 | PM.IMPN ---
Progress Note: A&P Assessment and Plan (1) Sepsis: Code(s): A41.9 - Sepsis, unspecified organism Status: Acute Assessment and Plan: Sepsis with septicemia secondary to pneumonia and/or UTI. Blood cultures and urine cultures have grown E coli. Blood cultures have also grown Enterococcus. Susceptibilities noted. Completed 5 days of azithromycin. Sputum growing pseudomonas so Levaquin added (05/19 at 8am). WBC was markedly elevated but normal now. Repeat BCx NGTD from 05/20. He is improving clinically. Discussed with Vic GARCES. Patient changed to Ampicillin for home and treat through 06/02 (2 weeks after negative BCx). Stop Levaquin since Day 7. clinical program coordinator notified and arrangements being made for home IV abx. Home tomorrow if everything arranged. Declan catheter placed today. . (2) Herpes zoster: Code(s): B02.9 - Zoster without complications Status: Acute Assessment and Plan: Patient developed pustules to the right cheek consistent with herpes zoster; developed left side facial lesions the next day. His eye does not appear to be involved nor does his ear. Suspect this is V2 distribution. His mucous membranes are involved with the nares and the lips. He did have oral lesions but these have healed. He may have had zoster in the mouth as well but it was mostly thrush since much better with nystatin. Do not believe this is Samuels Dejuan's. Continue IV acyclovir. Continue Nasal saline spray prn and lubricant to the lips. Condition improving. (3) Thrush: Code(s): B37.0 - Candidal stomatitis Status: Acute Assessment and Plan: Patient developed mouth pain on 05/19 with exam consistent with thrush. He is on a steroid inhaler. His lips have become more crusted with bleeding. Given the other findings, concerned that part of his findings related to zoster. Will continue current treatment now. (4) Pneumonia: Code(s): J18.9 - Pneumonia, unspecified organism Status: Acute Assessment and Plan: Chest x-ray on admission showing bibasilar infiltrates. Cultures as mentioned above. He is on appropriate antibiotic coverage. Weaned to room air. Risk for aspiration so possibly a component of aspiration PNA as well. Continue appropriate diet. Completed a course for aspiration so okay to change to Ampicillin. (5) Urinary tract infection: Code(s): N39.0 - Urinary tract infection, site not specified Status: Acute Assessment and Plan: As above. Urine and blood cultures and sensitivities noted. (6) Acute on chronic kidney failure: Code(s): N17.9 - Acute kidney failure, unspecified; N18.9 - Chronic kidney disease, unspecified Status: Acute Assessment and Plan: Patient has chronic kidney disease with creatinine running 1.6-2.4. Creatinine was 2.9 on admission and has improved to 1.5 yesterday. Continue to monitor. (7) Heart failure with preserved ejection fraction: Code(s): I50.30 - Unspecified diastolic (congestive) heart failure Status: Acute Assessment and Plan: Appears compensated. Lasix and Coreg were on hold but able to resume. Follow. (8) Hypotension: Code(s): I95.9 - Hypotension, unspecified Status: Acute Assessment and Plan: Patient presented with hypotension secondary to sepsis. Treated with IV fluids. Now resolved and fluids stopped. (9) Acute exacerbation of chronic obstructive pulmonary disease: Code(s): J44.1 - Chronic obstructive pulmonary disease with (acute) exacerbation Status: Acute Assessment and Plan: Patient with mild exacerbation of COPD. He had lip pursing and has some wheezing on exam. He was treated with Solu-Medrol but now weaned off. Continue inhalers (10) Urethral stricture: Code(s): N35.919 - Unspecified urethral stricture, male, unspecified site Status: Acute Assessment and Plan: Continue daily straight cat
[2022-05-25] MEDS: VANCOMYCIN ORAL 125 MG/2.5 ML SYRUP PO (17:21)
[2022-05-25] MEDS: RIVAROXABAN 2.5 MG TABLET PO (20:33)
[2022-05-25] MEDS: MELATONIN 5 MG TABLET PO (20:33)
[2022-05-25] MEDS: CLOPIDOGREL BISULFATE 75 MG TABLET PO (20:33)
[2022-05-25] MEDS: ATORVASTATIN 40 MG TABLET 80 MG PO (20:33)
[2022-05-25] MEDS: UMECLIDINIUM BROMIDE 62.5 MCG ELLIPTA 1 PUFF INHALATION (21:03)
[2022-05-25] MEDS: GABAPENTIN 300 MG CAPSULE PO (22:05)
[2022-05-26] MEDS: AMPICILLIN 2 GM/NS 100 ML 2 GM/100 ML BAG IVPB ×3 (00:38→11:45)
[2022-05-26] MEDS: VANCOMYCIN ORAL 125 MG/2.5 ML SYRUP PO ×3 (00:59→11:44)
[2022-05-26 05:35] LABS: Basophils Percent Auto 0.3 % (0.2-1.2); Eosinophils Absolute Auto 0.2 K/mm3 (0-0.3); Eosinophils Percent Auto 2.8 % (0-4.4); Hematocrit 30.8 % (42.0-52.0); Hemoglobin 9.2 g/dL (14.0-18.0); Immature Granulocyte Absolute 0.24 K/mm3 (0.00-0.031); Immature Granulocyte Percent A 3.1 % (0-0.5); Lymphocytes Absolute Auto 0.84 K/mm3 (0.9-3.2); Lymphocytes Percent Auto 10.9 % (18.3-44.2); Mean Corpuscular HGB Conc 29.9 g/dl (32-36); Mean Corpuscular Hemoglobin 26.5 pg (26-34); Mean Corpuscular Volume 88.8 fl (80-100); Mean Platelet Volume 9.8 fl (7.4-10.4); Monocytes Absolute Auto 0.7 K/mm3 (0.1-0.6); Monocytes Percent Auto 8.9 % (2.6-8.5); Neutrophils Absolute Auto 5.7 K/mm3 (1.3-6.7); Platelet Count Result 296 k/mm3 (150-375); Red Blood Count 3.47 M/mm3 (4.6-6.20); White Blood Count 7.7 K/mm3 (4.5-10.0)
[2022-05-26] MEDS: CENTRAL LINE FLUSH 10 ML IV PUSH ×2 (05:41→13:15)
[2022-05-26 05:45] LABS: Anion Gap 6 mmol/L (8-16); Blood Urea Nitrogen 16 mg/dL (9-20); CRP 2.3 mg/dL (<1.0); Calcium 7.7 mg/dL (8.4-10.2); Carbon Dioxide 29 mmol/L (22-30); Chloride 100 mmol/L (98-107); Estimated CRCL calculation 46 ml/min; Estimated Glomerular Filt Rate 46; Glucose 79 mg/dL (65-110); Potassium 3.8 mmol/L (3.4-5.0); Sodium 135 mmol/L (137-145)
[2022-05-26 06:36] LABS: Burr Cells 1+ (NORMAL); Ovalocytes 1+ (NORMAL); Platelet Estimate Adequate (Adequate); Poikilocytosis 2+ (NORMAL)
[2022-05-26 06:37] LABS: Acanthocytes 1+ (NORMAL); Schistocytes None Seen (NORMAL)
[2022-05-26 07:43] VITALS: BP 149/67; PULSE 73; RESP 18; TEMP 36.4; O2SAT 100
[2022-05-26 08:00] VITALS: O2SAT 95
[2022-05-26 08:39] VITALS: PULSE 79
[2022-05-26] MEDS: amLODIPine BESYLATE 5 MG TABLET 10 MG PO (08:39)
[2022-05-26] MEDS: PANTOPRAZOLE 40 MG TABLET PO (08:39)
[2022-05-26] MEDS: TAMSULOSIN HCL 0.4 MG CAPSULE PO (08:39)
[2022-05-26] MEDS: FUROSEMIDE 20 MG TABLET PO (08:39)
[2022-05-26] MEDS: RIVAROXABAN 2.5 MG TABLET PO (08:39)
[2022-05-26] MEDS: carvediloL 25 MG TABLET PO (08:39)
[2022-05-26] MEDS: guaiFENesin 12 HR 600 MG TABCR 1200 MG PO (08:39)
[2022-05-26] MEDS: TRIAMCINOLONE ACET 0.1% OINT 15 GM TUBE 1 APPLIC TOPICAL (08:40)
[2022-05-26] MEDS: NYSTATIN 100,000 UNITS/ML SUSP 5 ML ORAL.SUSP PO ×2 (08:40→13:15)
[2022-05-26] MEDS: ACYCLOVIR SODIUM IVPB 900 MG in DEXTROSE 5% IN WATER 250 ML 250 MG IVPB (08:43)
[2022-05-26] MEDS: FLUTICASONE/SALMETEROL 230-21 MCG INHALER 1 PUFF 2 PUFF INHALATION (09:42)
[2022-05-26 09:45] VITALS: O2SAT 95
[2022-05-26] MEDS: ZINC SULFATE 220 MG CAPSULE PO (11:44)
--- NOTE | 2022-05-26 13:10 | PM.DS ---
DS: Admitting Diagnosis Discharge Date 05/26/2022 Admitting Diagnosis Sepsis DS: Discharge Diagnosis Discharge Diagnosis (1) Sepsis: Code(s): A41.9 - Sepsis, unspecified organism Status: Acute (2) Herpes zoster: Code(s): B02.9 - Zoster without complications Status: Acute (3) Thrush: Code(s): B37.0 - Candidal stomatitis Status: Acute (4) Pneumonia: Code(s): J18.9 - Pneumonia, unspecified organism Status: Acute (5) Urinary tract infection: Code(s): N39.0 - Urinary tract infection, site not specified Status: Acute (6) Acute on chronic kidney failure: Code(s): N17.9 - Acute kidney failure, unspecified; N18.9 - Chronic kidney disease, unspecified Status: Acute (7) Heart failure with preserved ejection fraction: Code(s): I50.30 - Unspecified diastolic (congestive) heart failure Status: Acute (8) Hypotension: Code(s): I95.9 - Hypotension, unspecified Status: Acute (9) Acute exacerbation of chronic obstructive pulmonary disease: Code(s): J44.1 - Chronic obstructive pulmonary disease with (acute) exacerbation Status: Acute (10) Urethral stricture: Code(s): N35.919 - Unspecified urethral stricture, male, unspecified site Status: Acute (11) Benign prostatic hyperplasia: Code(s): N40.0 - Benign prostatic hyperplasia without lower urinary tract symptoms Status: Acute (12) Obstructive sleep apnea: Code(s): G47.33 - Obstructive sleep apnea (adult) (pediatric) Status: Chronic (13) Transaminitis: Code(s): R74.01 - Elevation of levels of liver transaminase levels Status: Acute (14) Dysphagia: Code(s): R13.10 - Dysphagia, unspecified Status: Acute (15) Thrombocytopenia: Code(s): D69.6 - Thrombocytopenia, unspecified Status: Acute DS: Summary Hospital Course Hospital Course: # sepsis: Sepsis with septicemia secondary to pneumonia and/or UTI. Blood cultures and urine cultures have grown E coli. Blood cultures have also grown Enterococcus. Susceptibilities noted. Completed 5 days of azithromycin. Sputum growing pseudomonas so Levaquin added (05/19 at 8am).? WBC was markedly elevated but normal now. Repeat BCx NGTD from 05/20. Improved clinically. Discussed with Vic GARCES. Patient changed to Ampicillin for home and treat through 06/02 (2 weeks after negative BCx). Completed 7 days of Levaquin therapy. patient information coordinator notified and arrangements being made for home IV abx which was arranged at the time of discharge. IV antibiotics to Declan catheter. # herpes zoster: Patient developed pustules to the right cheek consistent with herpes zoster; developed left side facial lesions the next day.? His eye does not appear to be involved nor does his ear.? Suspect this is V2 distribution.? His mucous membranes are involved with the nares and the lips. He did have oral lesions but these have healed.? He may have had zoster in the mouth as well but it was mostly thrush since much better with nystatin.? Do not believe this is Samuels Dejuan's.? Continue IV acyclovir. Continue Nasal saline spray prn and lubricant to the lips. Condition improving. Will switched to valacyclovir 1 g b.i.d. renally dosed for total 10-14 days # thrush: Patient developed mouth pain on 05/19 with exam consistent with thrush. He is on a steroid inhaler. His lips have become more crusted with bleeding. Given the other findings, concerned that part of his findings related to zoster. Will continue current treatment now. # pneumonia: Chest x-ray on admission showing bibasilar infiltrates. Cultures as mentioned above.? He is on appropriate antibiotic coverage. Weaned to room air. Risk for aspiration so possibly a component of aspiration PNA as well.? Continue appropriate diet. Completed a course for aspiration so okay to change to Ampicillin. # urinary tract infection: As above. Urine and blood cu
--- NOTE | 2022-05-26 14:57 | P.PNNP_ITS ---
Progress Note: A&P Assessment and Plan (1) ALFREDO (acute kidney injury): Code(s): N17.9 - Acute kidney failure, unspecified Status: Acute Assessment and Plan: * resolved * his creatinine has settled in at about 1.5. (2) Chronic kidney disease, stage IV (severe): Code(s): N18.4 - Chronic kidney disease, stage 4 (severe) Status: Chronic Assessment and Plan: * recently established care with Dr. Kahn * Due to hypertension and vascular disease. * new baseline creatinine 1.5 (3) Sepsis: Code(s): A41.9 - Sepsis, unspecified organism Status: Acute Assessment and Plan: * due to urinary source as well as pneumonia * urine and blood culture with E.coli and Enterococcus * Repeat cultures negative so far. * sputum culture with Pseudomonas * on Ampicillin and acyclovir. * He has a [facility] for administration of antibiotics at home. (4) Pneumonia: Code(s): J18.9 - Pneumonia, unspecified organism Status: Acute Assessment and Plan: * admission imaging noted * sputum culture noted * on ampicillin (5) Hypotension: Code(s): I95.9 - Hypotension, unspecified Status: Acute Assessment and Plan: * resolved (6) Urethral stricture: Code(s): N35.919 - Unspecified urethral stricture, male, unspecified site Status: Acute Assessment and Plan: * Continue daily straight catheterization and p.r.n. (7) Acute exacerbation of chronic obstructive pulmonary disease: Code(s): J44.1 - Chronic obstructive pulmonary disease with (acute) exacerbation Status: Acute Assessment and Plan: * mild exacerbation of COPD * clinically improving * continue supportive care. (8) Hypertension: Qualifiers: Hypertension type: primary hypertension Qualified Code(s): I10 - Essential (primary) hypertension Code(s): I10 - Essential (primary) hypertension Status: Chronic Assessment and Plan: Currently he is getting amlodipine 10, carvedilol 25 twice a day, and furos emide 20 mg daily. Continue same medicine. Subjective Date/time seen: 05/26/22 08:15am Interval history: patient in good spirits. eager for discharge. [facility] is in. eating okay. Exam Narrative: General: WD/WN male in NAD Heart: normal S1 and S2; no rub or gallop Lungs: Clear bilaterally Abdomen: soft, nontender, nondistended, positive bowel sounds Extremities: no edema Skin: Herpetic scabs around lips, nose, and right face. Scabs are falling off. Things are looking better. Objective Data Vital Signs Vital Signs: Vital Signs - 24 hr 05/25/22 20:33 05/25/22 20:00 05/25/22 21:08 Temperature Pulse Rate 90 Respiratory Rate Blood Pressure Pulse Oximetry 97 Oxygen Delivery Room Air Room Air Oxygen Flow Rate 05/25/22 21:27 05/26/22 07:43 05/26/22 08:39 Temperature 36.4 C 36.4 C Pulse Rate 79 73 79 Respiratory Rate 14 18 Blood Pressure 128/58 L 149/67 H Pulse Oximetry 93 100 Oxygen Delivery Oxygen Flow Rate 05/26/22 09:45 05/26/22 08:00 Temperature Pulse Rate Respiratory Rate Blood Pressu
--- NOTE | 2022-05-26 14:57 | PM.PNNEP ---
Progress Note: A&P Assessment and Plan (1) ALFREDO (acute kidney injury): Code(s): N17.9 - Acute kidney failure, unspecified Status: Acute Assessment and Plan: resolved his creatinine has settled in at about 1.5. (2) Chronic kidney disease, stage IV (severe): Code(s): N18.4 - Chronic kidney disease, stage 4 (severe) Status: Chronic Assessment and Plan: recently established care with Dr. Kahn Due to hypertension and vascular disease. new baseline creatinine 1.5 (3) Sepsis: Code(s): A41.9 - Sepsis, unspecified organism Status: Acute Assessment and Plan: due to urinary source as well as pneumonia urine and blood culture with E.coli and Enterococcus Repeat cultures negative so far. sputum culture with Pseudomonas on Ampicillin and acyclovir. He has a [facility] for administration of antibiotics at home. (4) Pneumonia: Code(s): J18.9 - Pneumonia, unspecified organism Status: Acute Assessment and Plan: admission imaging noted sputum culture noted on ampicillin (5) Hypotension: Code(s): I95.9 - Hypotension, unspecified Status: Acute Assessment and Plan: resolved (6) Urethral stricture: Code(s): N35.919 - Unspecified urethral stricture, male, unspecified site Status: Acute Assessment and Plan: Continue daily straight catheterization and p.r.n. (7) Acute exacerbation of chronic obstructive pulmonary disease: Code(s): J44.1 - Chronic obstructive pulmonary disease with (acute) exacerbation Status: Acute Assessment and Plan: mild exacerbation of COPD clinically improving continue supportive care. (8) Hypertension: Qualifiers: Hypertension type: primary hypertension Qualified Code(s): I10 - Essential (primary) hypertension Code(s): I10 - Essential (primary) hypertension Status: Chronic Assessment and Plan: Currently he is getting amlodipine 10, carvedilol 25 twice a day, and furosemide 20 mg daily. Continue same medicine. Subjective Date/time seen: 05/26/22 08:15am Interval history: patient in good spirits. eager for discharge. [facility] is in. eating okay. Exam Narrative: General: WD/WN male in NAD Heart: normal S1 and S2; no rub or gallop Lungs: Clear bilaterally Abdomen: soft, nontender, nondistended, positive bowel sounds Extremities: no edema Skin: Herpetic scabs around lips, nose, and right face. Scabs are falling off. Things are looking better. Objective Data Vital Signs Vital Signs: Vital Signs - 24 hr 05/25/22 20:33 05/25/22 20:00 05/25/22 21:08 Temperature Pulse Rate 90 Respiratory Rate Blood Pressure Pulse Oximetry 97 Oxygen Delivery Room Air Room Air Oxygen Flow Rate 05/25/22 21:27 05/26/22 07:43 05/26/22 08:39 Temperature 36.4 C 36.4 C Pulse Rate 79 73 79 Respiratory Rate 14 18 Blood Pressure 128/58 L 149/67 H Pulse Oximetry 93 100 Oxygen Delivery Oxygen Flow Rate 05/26/22 09:45 05/26/22 08:00 Temperature Pulse Rate Respiratory Rate Blood Pressure Pulse Oximetry 95 95 Oxygen Delivery Room Air Nasal Cannula Oxygen Flow Rate 2 Intake/Output Intake/Output: Intake & Output 05/23/22 05/24/22 05/25/22 05/26/22 23:59 23:59 23:59 23:59 Intake Total 2256 2056 1836 808 Output Total 2150 3223 613 0067 Balance 890 991 1043 -542 Meds/Results Radiology Results: ITS Impressions Abdomen/Pelvis CT 05/15/22 15:52 IMPRESSION: Small sliding hiatal hernia Bilateral probable renal cysts. 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
== END 2022-05-26 14:05 | disposition home health service (06) | DRG 871 ==
LOC: ANHED 18:34 → ANHIMU 19:14 → ANHICU 19:23 → ANH2MED 05-16 15:24
PROVIDERS: Chiropractor; Internal Medicine; Internal Medicine Nephrology; Physician Assistant; Admitting Provider Internal Medicine; Emergency Provider Emergency Medicine; PCP Family Medicine; Visit Provider Internal Medicine
DX: A41.9 Sepsis, unspecified organism (principal); J18.9 Pneumonia, unspecified organism; N17.0 Acute kidney failure with tubular necrosis; J69.0 Pneumonitis due to inhalation of food and vomit; N39.0 Urinary tract infection, site not specified; B37.0 Candidal stomatitis; K52.1 Toxic gastroenteritis and colitis; I13.0 Hypertensive heart and chronic kidney disease with heart failure and stage 1 through stage 4 chronic kidney disease, or unspecified chronic kidney disease; N18.4 Chronic kidney disease, stage 4 (severe); I50.32 Chronic diastolic (congestive) heart failure; B96.20 Unspecified Escherichia coli [E. coli] as the cause of diseases classified elsewhere; B95.2 Enterococcus as the cause of diseases classified elsewhere; B96.5 Pseudomonas (aeruginosa) (mallei) (pseudomallei) as the cause of diseases classified elsewhere; Z20.822 Contact with and (suspected) exposure to COVID-19; B02.9 Zoster without complications; G47.33 Obstructive sleep apnea (adult) (pediatric); R13.10 Dysphagia, unspecified; J43.9 Emphysema, unspecified; D69.6 Thrombocytopenia, unspecified; N40.1 Benign prostatic hyperplasia with lower urinary tract symptoms; N35.819 Other urethral stricture, male, unspecified site; T36.95XA Adverse effect of unspecified systemic antibiotic, initial encounter; Z99.81 Dependence on supplemental oxygen; M19.90 Unspecified osteoarthritis, unspecified site; D64.9 Anemia, unspecified; K21.9 Gastro-esophageal reflux disease without esophagitis; I95.9 Hypotension, unspecified; I73.9 Peripheral vascular disease, unspecified; L40.9 Psoriasis, unspecified; Z96.643 Presence of artificial hip joint, bilateral; Z95.810 Presence of automatic (implantable) cardiac defibrillator; Z95.820 Peripheral vascular angioplasty status with implants and grafts; Z87.891 Personal history of nicotine dependence; Z86.16 Personal history of COVID-19
CPT/HCPCS: 36415; 36556; 51701; 71045; 71250; 74176; 74240; 76536; 76775; 80048; 80053; 80069; 81001; 82248; 82550; 82565; 82570; 82948; 83605; 83735; 83880; 84100; 84145; 84300; 84630; 85025; 85027; 85055; 85610; 85730; 86140; 86703; 86738; 87040; 87070; 87077; 87086; 87088; 87186; 87205; 87449; 87502; 87899; 92526; 92610; 93005; 94640; 96361; 96365; 96366; 96367; 96368; 96375; 97110; 97161; 97165; 97530; 97535; 99285; A9270; C1751; C9803; G0378; G0432; J0131; J0133; J0290; J0295; J0456; J0692; J0696; J1940; J2920; J2930; J3370; J3475; J7030; J7042; J7060; J7120; U0003; U0005

== ENCOUNTER 2022-05-31 14:45 | Outpatient (NON) | payer OTHER, MEDICARE, SELFPAY ==
[2022-05-31 19:55] LABS: Basophils Absolute Auto 0.1 K/mm3 (0.0-0.1); Basophils Percent Auto 1.6 % (0.2-1.2); Eosinophils Absolute Auto 0.3 K/mm3 (0-0.3); Eosinophils Percent Auto 4.2 % (0-4.4); Hematocrit 32.9 % (42.0-52.0); Immature Granulocyte Absolute 0.06 K/mm3 (0.00-0.031); Immature Granulocyte Percent A 0.9 % (0-0.5); Lymphocytes Percent Auto 18.8 % (18.3-44.2); Mean Corpuscular HGB Conc 30.4 g/dl (32-36); Mean Corpuscular Hemoglobin 27.1 pg (26-34); Mean Corpuscular Volume 89.2 fl (80-100); Mean Platelet Volume 9.5 fl (7.4-10.4); Monocytes Absolute Auto 0.7 K/mm3 (0.1-0.6); Monocytes Percent Auto 10.3 % (2.6-8.5); Neutrophils Absolute Auto 4.1 K/mm3 (1.3-6.7); Neutrophils Percent Auto 64.2 % (45.5-73.1); Platelet Count Result 353 k/mm3 (150-375); Red Blood Count 3.69 M/mm3 (4.6-6.20); Red Cell Distribution Width 19.3 % (11.5-14.5); White Blood Count 6.4 K/mm3 (4.5-10.0)
[2022-05-31 20:03] LABS: Alanine Aminotransferase 19 U/L (6-50); Albumin Level 3.5 g/dL (3.5-5.1); Alkaline Phosphatase 149 U/L (38-126); Anion Gap 9 mmol/L (8-16); Aspartate Amino Transferase 27 U/L (17-59); Bilirubin,Total 0.4 mg/dL (0.2-1.3); Blood Urea Nitrogen 19 mg/dL (9-20); Calcium 8.2 mg/dL (8.4-10.2); Carbon Dioxide 26 mmol/L (22-30); Chloride 103 mmol/L (98-107); Estimated Glomerular Filt Rate 43; Glucose 93 mg/dL (65-110); Potassium 4.2 mmol/L (3.4-5.0); Sodium 138 mmol/L (137-145)
== END 2022-05-31 14:46 | disposition home or self-care (01) ==
LOC: HOME HLTH 14:53
PROVIDERS: PCP Family Medicine; Visit Provider Family Medicine
DX: B02.9 Zoster without complications (principal); B37.0 Candidal stomatitis; A41.9 Sepsis, unspecified organism; J44.0 Chronic obstructive pulmonary disease with (acute) lower respiratory infection
CPT/HCPCS: 80053; 85025

== ENCOUNTER 2022-11-08 20:55 | Outpatient (NON) | payer MEDICARE, SELFPAY | END 2022-11-08 20:56 | disposition home or self-care (01) | PROVIDERS: PCP Family Medicine; Visit Provider Family Medicine | DX: R30.0 Dysuria (principal) | CPT/HCPCS: 87077; 87086; 87186 ==

== ENCOUNTER 2022-11-17 14:32 | Outpatient (CLI) | payer MEDICARE, SELFPAY ==
--- NOTE | ~2022-11-17 | CT_ITS ---
EXAMINATION: CT diagnostic chest wo con DATE: 11/17/2022 14:47 INDICATION: Multiple one nodule follow-up TECHNIQUE: Computed tomography (CT) of the chest was performed without intravenous contrast. Automate d exposure control and iterative reconstruction technique were employed. Exam dose: 120.71 mGy-cm to yara exam DLP. COMPARISON: 05/2022 portable AP chest 05/11/2022 CT chest FINDINGS: Left transvenous cardiac pacemaker device with right atrial and right ventricular leads. No rmal heart size. No pericardial or pleural effusion. There is extensive thoracic aortic and great vessel calcification. Up to approximately 3.4 cm aortic arch aneurysm. No hilar mass lesion or lymphadenopathy. Up to 10 mm cross-section diameter precarinal lymph nodes. T horacic aortic aneurysm. Coronary artery calcification. Moderately severe emphysema is again noted. Minimal patchy posterior segment right upper lobe infiltrate, mild patchy middle lobe and right lower lobe infiltrate and/or atelectasis. Approximately 8.5 mm new irregular opacity, left upper lobe; primary bronchogenic carcinoma is not ex cluded. Consider PET/CT imaging. There is patchy posterior segment left upper lobe infiltrate. Patchy infiltrate and/atelectasis of the left lower lobe. There is overall volume loss of the left lo wer lobe compared to the right. IMPRESSION: New irregular 8.5 mm opacity, left upper lobe; primary bronchogenic carcinoma is not exc luded. Consider PET/CT imaging Mildly severe emphysematous changes of the lungs Scattered patchy infiltrates and/atelectasis throughout both lungs Small sliding hiatal hernia Thoracic aortic arch aneurysm Reviewed, dictated and finalized at [facility]. Reviewed, dictated and finalized at [facility]. IMPRESSION: New irregular 8.5 mm opacity, left upper lobe; primary bronchogeni c carcinoma is not excluded. Consider PET/CT imaging Mildly severe emphysematous changes of the lungs Scattered patchy infiltrates and/atelectasis throughout both lungs Small sliding hiatal hernia Thoracic aortic arch aneurysm
== END 2022-11-17 14:33 | disposition home or self-care (01) ==
LOC: ANHIMG 14:34
PROVIDERS: PCP Family Medicine; Visit Provider Nurse Practitioner
DX: R91.8 Other nonspecific abnormal finding of lung field (principal); K44.9 Diaphragmatic hernia without obstruction or gangrene; J43.9 Emphysema, unspecified; I71.20 Thoracic aortic aneurysm, without rupture, unspecified
CPT/HCPCS: 71250

== ENCOUNTER 2022-11-25 20:58 | Outpatient (NON) | payer MEDICARE, SELFPAY | END 2022-11-25 20:59 | disposition home or self-care (01) | LOC: ANHLAB 20:59 | PROVIDERS: PCP Family Medicine; Visit Provider Family Medicine | DX: N39.0 Urinary tract infection, site not specified (principal) | CPT/HCPCS: 87086 ==

== ENCOUNTER 2022-12-23 11:00 | Outpatient (RCR) | payer MEDICARE, SELFPAY ==
--- NOTE | 2022-11-03 17:13 | PTOPEVAL1 ---
Assessment and note entered by Severo Toro, PT, DPT Evaluation Information Assessment Status Evaluation Diagnosis R shoulder pain Onset 2-3 months Subjective Information Pt states 2-3 months ago he started having R shoulder pain without a WHITLEY. Pt states he has been on Prednisone for 10 days and his ROM and pain is doing so much better. He states he cannot sleep on his R shoulder without an increase in pain. Pt rates 8/10 pain at its worst before starting the medication, and a 2-3/10 at its worst while on the medication. Reported Pain Level Pain Score 2: Self Report Assessment PT Clinical Summary Freddy Chery presents to therapy today for his initial evaluation with a diagnosis of R shoulder pain. Today he demonstrates decreased active shoulder strength in all direction as well as decreased shoulder strength, and increased pain with resistance. He demonstrates forward and rounded shoulder, scapular protraction, and significantly increased thoracic kyphosis. Skilled physical therapy services are indicated to improve ROM, manage pain, increased thoracic mobility, improve shoulder strength, and to return to baseline function. Plan of Care Interventions Electrical Stimulation,Hot Pack/Cold Pack,Manual Therapy,Neuro Re-education,Patient/Caregiver Educati,Therapeutic Activities,Therapeutic Exercise PT Services Indicated Yes Treatment Frequency and 2x/wk for 4 wks Duration These treatments will address the objective and functional deficits as defined above. The patient will be advanced safely and appropriately in order for the patient to progress towards his/her prior level of function. Additional exercises will be introduced and as well as a comprehensive home exercise program upon discharge, if needed, ?to ensure carryover of functional gains achieved in the clinic. This treatment plan has been reviewed and agreement upon by the patient.
--- NOTE | 2022-11-08 11:04 | PCPTNOTE ---
Pt cancelled his visit today due to a UTI.
--- NOTE | 2022-11-29 13:15 | PTOPPROG ---
Assessment and note entered by Severo Toro, PT, DPT Evaluation Information Assessment Status Progress Diagnosis R shoulder pain Onset 2-3 months Subjective Information Pt states overall he thinks he is making progress. He states he will still feel a sharp pain when reaching or lifting something heavy. Pt reports 60 -70% improvement in overall symptoms. He states he has made a lot of changes throughout his day to limit pain. He reports good compliance with his HEP. Assessment PT Clinical Summary Vik presents to therapy today for his progress report following 5 visits of skilled therapy to treat his R shoulder pain. Today he demonstrates improvements in his active shoulder flexion and abduction but this is still decreased from his uninvolved side. He has improved R shoulder strength as well but this is decreased compared to his L. He continues to have tenderness to palpation in the medial scapular region. Continuation of skilled physical therapy services are indicate to continue progressing ROM, strength , pain, body awareness and to improve functional mobility. Plan of Care Interventions Electrical Stimulation,Hot Pack/Cold Pack,Manual Therapy,Neuro Re-education,Patient/Caregiver Educati,Therapeutic Activities,Therapeutic Exercise PT Services Indicated Yes Treatment Frequency and 2x/wk for 3 wks Duration These treatments will address the objective and functional deficits as defined above. The patient will be advanced safely and appropriately in order for the patient to progress towards his/her prior level of function. Additional exercises will be introduced and as well as a comprehensive home exercise program upon discharge, if needed, ?to ensure carryover of functional gains achieved in the clinic. This treatment plan has been reviewed and agreement upon by the patient.
--- NOTE | 2022-12-23 11:31 | PTOPDC ---
Assessment and note entered by Severo Toro, PT, DPT Evaluation Information Assessment Status Discharge Diagnosis R shoulder pain Onset 2-3 months Subjective Information Pt states he feels like things are going pretty good. He states his pain has decreased, but still slowly increases with increased activity but then decreases back down as it loosens up. He also states his shoulder strength has improved. Pt reports 90% improvement in overall symptoms. Reported Pain Level Pain Score 0: Self Report Assessment PT Clinical Summary Vik presents to therapy today for his progress report following 10 visits of skilled therapy to treat his R shoulder pain. Today he demonstrates improvements in his active shoulder flexion and abduction and its now equal to his uninvolved side . He demonstrates R shoulder strength that is ~90% of his uninvolved side. He has met or progressed well towards his therapy goals and no longer requires skilled services. He will be discharged at this time with instructions to continue HEP upon discharge. Plan of Care PT Services Indicated No
== END 2022-12-23 13:59 | disposition home or self-care (01) ==
LOC: ANHGOSHPT 11:00
PROVIDERS: PCP Family Medicine; Visit Provider Family Medicine
DX: M25.511 Pain in right shoulder (principal)
CPT/HCPCS: 97110; 97112; 97140; 97161; 97530

== ENCOUNTER 2023-01-18 12:26 | Outpatient (CLI) | payer MEDICARE, SELFPAY ==
--- NOTE | ~2023-01-18 | CT_ITS ---
EXAMINATION:CT diagnostic chest wo con DATE: 01/18/2023 12:50 INDICATION: Lung nodule. TECHNIQUE: Computed tomography (CT) of the chest was performed without intravenous contrast. Automate d exposure control and iterative reconstruction technique were employed. The dose-length product (DLP ) was 124.20 mGy-cm. COMPARISON: Chest CT 11/17/2022, and 05/15/2022 FINDINGS: There is mild scarring at the lung apices. There is severe emphysema. There are centrilobul ar nodules and tree-in-bud opacities in the lower lobes and left upper lobe. There is bronchiectasis in left lower lobe and lingula. A calcified left lung nodule is consistent with old granulomatous dis ease. No pleural effusion. The heart size is normal. There are coronary artery calcifications. No per icardial effusion. There is mild mediastinal lymphadenopathy, likely reactive. There is a prominent d uctus bowel. There is a left chest wall pacer with leads in the right atrium and right ventricle. The re is a small sliding hiatal hernia. There is moderate thoracic spondylosis. IMPRESSION: 1. Chronic pneumonia involving the lower lobes and left upper lobe. 2. Severe emphysema. Reviewed, dictated and finalized at location [facility].
== END 2023-01-18 12:27 | disposition home or self-care (01) ==
PROVIDERS: PCP Family Medicine; Visit Provider Nurse Practitioner
DX: R91.1 Solitary pulmonary nodule (principal); J43.9 Emphysema, unspecified; J18.9 Pneumonia, unspecified organism
CPT/HCPCS: 71250

== ENCOUNTER 2023-01-24 14:20 | Observation (INO) | payer MEDICARE, SELFPAY ==
[2023-01-24] VITALS (7 sets, daily range): BP systolic 155–213; BP diastolic 60–97; PULSE 62–92; RESP 16–22; TEMP 36.1–36.6; O2SAT 93–100; BMI 28.2
--- NOTE | ~2023-01-24 | XR_ITS ---
Portable chest x-ray Comparison: 05/25/2022 Clinical History: Congestion Findings: There is mild diffuse interstitial prominence in the lungs. No pleural effusion or pneumot horax. Cardiomediastinal silhouette is stable, with pacemaker device. Bones and soft tissues are unr emarkable. Impression: Probable COPD and/or chronic interstitial disease. Mild interstitial edema. There are less likely, th ough not excluded. Pacemaker device. Reviewed, dictated and finalized at location . Impression: Probable COPD and/or chronic interstitial disease. Mild interstitial edema. The re are less likely, though not excluded. Pacemaker device.
--- NOTE | ~2023-01-24 | XR_ITS ---
XR chest PICC line DATE: 01/26/2023 16:42 INDICATION: Right upper extremity PIC catheter placement TECHNIQUE: Portable AP chest on 01/26/2023 at 1636 hours COMPARISON: 01/25/2023 portable AP chest FINDINGS: Interval placement of right upper extremity PIC catheter, the distal tip overlapping the pa cemaker wires but apparently within the superior vena cava. Left bipolar pacemaker device with leads overlying right atrium and right ventricle. There is diminished infiltrate or atelectasis at the left lung base since 01/25/2023. Mild pulmonary va scular congestion is again suggested. Heart size is within normal range. Aortic calcification. Diffuse osteopenia. IMPRESSION: Right upper extremity PIC catheter placement in superior vena cava Reviewed, dictated and finalized at [facility]. Reviewed, dictated and finalized at location []
[2023-01-24 15:06] LABS: Basophils Percent Auto 0.4 % (0.2-1.2); Eosinophils Absolute Auto 0.4 K/mm3 (0-0.3); Eosinophils Percent Auto 4.9 % (0-4.4); Hematocrit 38.3 % (42.0-52.0); Hemoglobin 11.1 g/dL (14.0-18.0); Immature Granulocyte Absolute 0.04 K/mm3 (0.00-0.031); Immature Granulocyte Percent A 0.4 % (0-0.5); Lymphocytes Absolute Auto 0.97 K/mm3 (0.9-3.2); Lymphocytes Percent Auto 10.7 % (18.3-44.2); Mean Corpuscular Hemoglobin 25.3 pg (26-34); Mean Corpuscular Volume 87.2 fl (80-100); Monocytes Absolute Auto 0.6 K/mm3 (0.1-0.6); Monocytes Percent Auto 6.5 % (2.6-8.5); Neutrophils Percent Auto 77.1 % (45.5-73.1); Platelet Count Result 192 k/mm3 (150-375); Red Blood Count 4.39 M/mm3 (4.6-6.20); Red Cell Distribution Width 16.9 % (11.5-14.5)
[2023-01-24 15:16] LABS: Appearance Urine Cloudy (Clear); Bacteria Urine None Seen /hpf; Bilirubin Urine Negative (Negative); Color Urine Yellow (Yellow); Glucose Urine UA Negative (Negative); Ketones Urine Negative (Negative); Leukocyte Esterase Ur 2+ LEU/UL (Negative); Nitrate Urine Negative (Negative); Non Pathogenic Casts 0-2; Protein Urine 1+ mg/dL (Negative); RBC Urine 0-2 /hpf (0-2); Specific Grav Ur 1.021 (1.001-1.035); Squamous Epithelial Cell Urine Occasional /hpf (Few); Urobilinogen Urine 0.2 mg/dL (<2.0); WBC Urine >100 /hpf
[2023-01-24 15:17] LABS: Lactic Acid Reflex 0.7 mmol/L (0.7-2.0)
[2023-01-24 15:19] LABS: Alanine Aminotransferase 16 U/L (6-50); Alkaline Phosphatase 107 U/L (38-126); Anion Gap 6 mmol/L (8-16); Aspartate Amino Transferase 23 U/L (17-59); Bilirubin,Total 0.5 mg/dL (0.2-1.3); Blood Urea Nitrogen 21 mg/dL (9-20); Calcium 8.3 mg/dL (8.4-10.2); Carbon Dioxide 26 mmol/L (22-30); Chloride 110 mmol/L (98-107); Estimated CRCL calculation 35 ml/min; Estimated Glomerular Filt Rate 35; Glucose 105 mg/dL (65-110); Potassium 4.2 mmol/L (3.4-5.0); Sodium 142 mmol/L (137-145)
[2023-01-24 15:21] LABS: Add Urine Microscopic? YES
[2023-01-24 15:26] LABS: INR 1.3; Prothrombin Time 16.5 Seconds (11.1-14.7)
[2023-01-24 15:27] LABS: Partial Thromboplastin Time 43.8 SECONDS (22.3-36.8)
[2023-01-24 15:40] LABS: Hypochromasia 1+ (NORMAL); Ovalocytes 1+ (NORMAL); Platelet Estimate Adequate (Adequate); Schistocytes None Seen (NORMAL)
--- NOTE | 2023-01-24 17:57 | ED.GENADULT ---
HPI - General Adult General Chief complaint: Unspecified Stated complaint: sent by pulmonary for antibiotics Time Seen by Provider: 01/24/23 15:43 History of Present Illness HPI narrative: Patient is a 72-year-old male who presents to the ER to receive IV antibiotics. 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 He has resistant Pseudomonas in his sputum. He had been feeling weak and having cough so she did a sputum culture. It is only sensitive to gentamicin, ertapenem, and tobramycin. He is having no fevers or chills or sweats. No chest pain or chest pressure. He is not hypoxic this time. No additional concerns. Related Data Home Medications Medication Instructions Recorded Confirmed albuterol sulfate 2.5 mg/3 mL 2.5 mg inhalation Q4-6H PRN SOB 03/03/21 01/24/23 (0.083 %) solution for nebulization tiotropium bromide 2.5 2 puff inhalation HS 03/03/21 01/24/23 mcg/actuation mist for inhalation (Spiriva Respimat) acetaminophen 500 mg tablet 500 mg PO Q6H PRN Moderate Pain 06/02/21 01/24/23 (Scale Score 5-6) polyethylene glycol 3350 17 gram 17 g PO DAILY PRN Constipation 07/17/21 01/24/23 oral powder packet (Miralax) fluticasone 500 mcg-salmeterol 50 1 inh inhalation Q12H 10/12/21 01/24/23 mcg/dose blistr powdr for inhalation (Wixela Inhub) pantoprazole 40 mg tablet,delayed 40 mg PO DAILY 01/11/22 01/24/23 release doxepin 25 mg capsule 25 mg PO QHS PRN Sleep 05/15/22 01/24/23 rivaroxaban 2.5 mg tablet (Xarelto) 2.5 mg PO BID 05/15/22 01/24/23 cetirizine 10 mg tablet (Zyrtec) 10 mg PO DAILY 07/12/22 01/24/23 multivitamin (Daily Multi-Vitamin 1 tablet PO DAILY 07/12/22 01/24/23 tablet) furosemide 40 mg tablet 40 mg PO DAILY 10/21/22 01/24/23 ciprofloxacin HCl 500 mg tablet 500 mg PO BID 01/24/23 01/24/23 tamsulosin 0.4 mg capsule 0.8 mg PO HS 01/24/23 01/24/23 triamcinolone acetonide 0.1 % 1 applic topical PRN PRN Rash 01/24/23 01/24/23 topical ointment valacyclovir 1 gram tablet 1,000 mg PO Q12H PRN Cold Sores 01/24/23 01/24/23 Allergies Allergy/AdvReac Type Severity Reaction Status Date / Time No Known Allergies Allergy Verified 01/24/23 14:21 Review of Systems Review of Systems: All systems reviewed & are unremarkable except as noted in HPI and below Constitutional: Constitutional: Reports fatigue, Denies fever(s) and Denies night sweats ENT: Denies nasal congestion and Denies sore throat Cardiovascular: Cardiovascular: Denies chest pain, Denies rapid heart rate and Denies radiating jaw, neck or arm pain Respiratory: Respiratory: Reports cough, Denies excessive phlegm production and Denies wheezing Gastrointestinal: Gastrointestinal: Denies abdominal pain, Denies nausea and Denies vomiting [facility] Past Medical History Medical History (Updated 01/24/23 @ 22:42 by Marco A Velázquez MD) Arthritis AV block Status post Medtronic pacemaker placement. Benign prostatic hyperplasia Chronic anemia Chronic anemia Chronic kidney disease, stage 3 COPD with emphysema COVID-19 (04/2020) Eczema Empyema of left pleural space (05/2021) Pleural fluid grew out strep intermedius and staph hominis. Status post thoracotomy with decortication. Femoral artery stenosis, left Gastroesophageal reflux disease Heart failure with preserved ejection fraction Echocardiogram in November 2021 showed normal LV size and function with an EF measured at 66% and impaired diastolic relaxation. Hypertension Obstructive sleep apnea On 2 L nasal cannula at nighttime. Peripheral vascular disease Status post right carotid endarterectomy. Status post left lower extremity stent. Psoriasis Urethral stricture Surgical History Surgical History AICD (automatic cardioverter/defibrillator) present History of dilation of urethra History of herniorrhaphy History of hip replacement Bilaterally with revision History of right-sided carotid endarterectomy Histo
[2023-01-24] MEDS: ERTAPENEM 1 GM/NS 50 ML 1 GM/50 ML BAG IVPB (18:13)
[2023-01-24] MEDS: hydrALAZINE HCL 20 MG/ML VIAL 10 MG IV PUSH (20:01)
--- NOTE | 2023-01-24 20:57 | PM.IMHP ---
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 The patient has been feeling weak and having a cough so a sputum culture was obtained. The Pseudomonas is only sensitive to gentamicin ertapenem and tobramycin. Patient is not been having any fever chills. He has no chest pain or chest pressure. He is not hypoxic. The patient also stated that he has E coli in his urine as well. The patient was given Invanz for the infection and was given Apresoline for high pressure. He was also given Lopressor IV as well. His H&H is 11.1 and 38.3 which is his baseline. Creatinine 1.9 with a baseline anywhere from 1.5-1.77. Patient was positive for UTI. The patient is being admitted to observation on the date of service of 01/24/2023. Review of Systems Review of Systems: All systems reviewed & are unremarkable except as noted in HPI and below Constitutional: Constitutional: Reports as per HPI and Reports no additional constitutional complaints Eyes: Eyes: Reports as per HPI and Reports no additional eye complaints ENT: Reports system reviewed and no additional complaints, except as documented and Reports Normal hearing present Cardiovascular: Cardiovascular: Reports no additional cardiovascular complaints Respiratory: Respiratory: Reports no additional respiratory complaints and Reports no additional respiratory complaints Gastrointestinal: Gastrointestinal: Reports as per HPI and Reports no additional gastrointestinal complaints Musculoskeletal: Musculoskeletal: Reports no additional musculoskeletal complaints Integumentary/Breasts: Skin/Breast: Reports system reviewed and no additional complaints, except as docu and Reports as per HPI Neurologic: Reports system reviewed and no additional complaints, except as documented, Reports as per HPI and Reports Normal hearing present Psychiatric: Psychiatric: Reports no additional psychiatric complaints and Reports as per HPI Endocrine: Endocrine: Reports no additional endocrine complaints Hematologic/Lymphatic: Hematologic/Lymphatic: Reports no additional hematologic/lymphatic complaints Allergic/Immunologic: Allergic/Immunologic: Reports no additional allergic/immunologic complaints [facility] Past Medical History Medical History Arthritis AV block Status post Medtronic pacemaker placement. Benign prostatic hyperplasia Chronic anemia Chronic anemia Chronic kidney disease, stage 3 COPD with emphysema COVID-19 (04/2020) Eczema Empyema of left pleural space (05/2021) Pleural fluid grew out strep intermedius and staph hominis. Status post thoracotomy with decortication. Femoral artery stenosis, left Gastroesophageal reflux disease Heart failure with preserved ejection fraction Echocardiogram in November 2021 showed normal LV size and function with an EF measured at 66% and impaired diastolic relaxation. Hypertension Obstructive sleep apnea On 2 L nasal cannula at nighttime. Peripheral vascular disease Status post right carotid endarterectomy. Status post left lower extremity stent. Psoriasis Urethral stricture Surgical History Surgical History AICD (automatic cardioverter/defibrillator) present History of dilation of urethra History of herniorrhaphy History of hip replacement Bilaterally with revision History of right-sided carotid endarterectomy History of thoracotomy (05/2021) Left thoracotomy with decortication for empyema. History of tonsillectomy Status post peripheral artery angioplasty with insertion of stent Left lower extremity. Status post placement of cardiac pacemaker (06/2020) Family History Family History Fathe
--- NOTE | 2023-01-24 22:16 | ADMGEN ---
This patient, Freddy Hill, was admitted to IMU Room 212-01. Patient/family oriented to hospital policies and general routines including ID bracelet, bed and alarms, visiting hours, pain management, procedures, bathroom and other care routines, personal items, smoking policy, room service/diet, and visiting hours. Information on how to activate the Rapid Response Team has been discussed. Patient/Family are encouraged to report perceived risks to care and to ask questions if they do not understand what they are told or what they should do.
[2023-01-24] MEDS: ACETAMINOPHEN 325 MG TABLET 650 MG PO (23:22)
[2023-01-25] VITALS (20 sets, daily range): BP systolic 140–196; BP diastolic 59–81; PULSE 61–98; RESP 14–22; TEMP 36.4–36.7; O2SAT 91–99
[2023-01-25 05:04] LABS: Basophils Percent Auto 0.5 % (0.2-1.2); Eosinophils Absolute Auto 0.5 K/mm3 (0-0.3); Eosinophils Percent Auto 6.1 % (0-4.4); Hematocrit 34.1 % (42.0-52.0); Hemoglobin 10.1 g/dL (14.0-18.0); Immature Granulocyte Absolute 0.02 K/mm3 (0.00-0.031); Immature Granulocyte Percent A 0.3 % (0-0.5); Lymphocytes Absolute Auto 0.86 K/mm3 (0.9-3.2); Lymphocytes Percent Auto 11.4 % (18.3-44.2); Mean Corpuscular HGB Conc 29.6 g/dl (32-36); Mean Corpuscular Hemoglobin 25.4 pg (26-34); Mean Corpuscular Volume 85.7 fl (80-100); Mean Platelet Volume 9.5 fl (7.4-10.4); Monocytes Absolute Auto 0.6 K/mm3 (0.1-0.6); Monocytes Percent Auto 8.3 % (2.6-8.5); Neutrophils Absolute Auto 5.5 K/mm3 (1.3-6.7); Neutrophils Percent Auto 73.4 % (45.5-73.1); Platelet Count Result 162 k/mm3 (150-375); Red Blood Count 3.98 M/mm3 (4.6-6.20); Red Cell Distribution Width 16.8 % (11.5-14.5); White Blood Count 7.6 K/mm3 (4.5-10.0)
[2023-01-25 05:16] LABS: Alanine Aminotransferase 14 U/L (6-50); Albumin Level 3.2 g/dL (3.5-5.1); Alkaline Phosphatase 93 U/L (38-126); Anion Gap 4 mmol/L (8-16); Aspartate Amino Transferase 22 U/L (17-59); Bilirubin,Total 0.3 mg/dL (0.2-1.3); Blood Urea Nitrogen 22 mg/dL (9-20); Carbon Dioxide 26 mmol/L (22-30); Chloride 111 mmol/L (98-107); Estimated CRCL calculation 45 ml/min; Estimated Glomerular Filt Rate 43; Glucose 89 mg/dL (65-110); Potassium 4.1 mmol/L (3.4-5.0); Sodium 141 mmol/L (137-145)
[2023-01-25 05:26] LABS: Lactic Acid Reflex 0.5 mmol/L (0.7-2.0)
[2023-01-25] MEDS: PANTOPRAZOLE 40 MG TABLET PO (08:24)
[2023-01-25] MEDS: RIVAROXABAN 2.5 MG TABLET PO ×2 (08:24→21:03)
[2023-01-25] MEDS: MULTIVITAMINS THERAPEUTIC TAB (*BKC) 1 TABLET PO (08:24)
[2023-01-25] MEDS: LORATADINE 10 MG TABLET PO ×2 (08:24→21:41)
[2023-01-25] MEDS: carvediloL 25 MG TABLET 50 MG PO (08:26)
[2023-01-25] MEDS: ALBUTEROL SULFATE NEB 2.5 MG/3 ML INH INHALATION ×3 (08:49→20:57)
[2023-01-25] MEDS: IPRATROPIUM BR 0.02% INH SOLN 0.5 MG/2.5 ML VIAL INHALATION ×3 (08:49→20:57)
[2023-01-25] MEDS: MEROPENEM 1 GM in SODIUM CHLORIDE 0.9% IV 100 ML 200 ML IVPB (10:38)
--- NOTE | 2023-01-25 10:42 | PM.IMPN ---
Progress Note: A&P Assessment and Plan (1) Chronic pneumonia: Code(s): J18.9 - Pneumonia, unspecified organism Status: Acute Assessment and Plan: The patient has a history of Pseudomonas organ dose a in his sputum. The patient was started on meropenem. Pulmonology has been consulted. CBT and neb treatments were prescribed Repeat cultures pending (2) Hypertension, uncontrolled: Code(s): I10 - Essential (primary) hypertension Status: Acute Assessment and Plan: Patient's blood pressure was elevated this evening he was given Lopressor and hydralazine. Continue with his Coreg. Continue with p.r.n. hydralazine. Add amlodipine (3) COPD (chronic obstructive pulmonary disease): Qualifiers: COPD type: emphysema Emphysema type: panlobular Qualified Code(s): J43.1 - Panlobular emphysema Code(s): J44.9 - Chronic obstructive pulmonary disease, unspecified Status: Acute Assessment and Plan: Continue with nebulizer treatments. (4) CKD (chronic kidney disease): Qualifiers: Chronic kidney disease stage: stage 3 (moderate) Code(s): N18.9 - Chronic kidney disease, unspecified Status: Acute Assessment and Plan: Continue to monitor the patient is near his baseline. (5) Obstructive sleep apnea: Code(s): G47.33 - Obstructive sleep apnea (adult) (pediatric) Status: Chronic Assessment and Plan: The patient only wears oxygen at night 2 L per nasal cannula does not wear CPAP. (6) BPH (benign prostatic hyperplasia): Code(s): N40.0 - Benign prostatic hyperplasia without lower urinary tract symptoms Status: Acute Assessment and Plan: Continue tamsulosin (7) Chronic anemia: Code(s): D64.9 - Anemia, unspecified Status: Acute Assessment and Plan: Could be related to his chronic kidney disease. The patient appears to be above his baseline. (8) Heart failure with preserved ejection fraction: Code(s): I50.30 - Unspecified diastolic (congestive) heart failure Status: Acute Assessment and Plan: Continue with Coreg. Continue with Lasix (9) Urinary tract infection: Qualifiers: Urinary tract infection type: acute cystitis Hematuria presence: without hematuria Qualified Code(s): N30.00 - Acute cystitis without hematuria Code(s): N39.0 - Urinary tract infection, site not specified Status: Acute Assessment and Plan: The patient is on Cipro for E coli UTI. This has been discontinued as he is already on medical Subjective Date/time seen: 01/25/23 10:42 Interval history: Chart reviewed. Chronic cough however worsening since past few months. Sputum culture was done which grew Pseudomonas drug-resistant. Also having urine symptoms is also chronic problem but with acute symptoms. No fever chills. White cell count was normal. Has underlying CKD stage 3 baseline creatinine 1.5-1.7. UA positive for UTI. Chest x-ray with probable COPD and/or chronic interstitial disease with mild per interstitial edema. BNP elevated at 5000. CT chest reviewed on 01/18/2023 with chronic pneumonia involving the lower lobes and left upper lobe with severe emphysema. Blood culture urine culture has been ordered and pending at this time on rivaroxaban. Lasix 40 daily started on meropenem. Review of Systems Review of Systems: All systems reviewed & are unremarkable except as noted in HPI and below Exam Narrative: GENERAL: Well-appearing, well-nourished, and in no acute distress. HEAD: Normocephalic, atraumatic. ENT: Mucous membranes moist. NECK: Supple. CHEST: Clear to auscultation.? No respiratory distress. HEART: Regular rate and rhythm.? Normal peripheral pulses. ABDOMEN: Soft, nontender, nondistended. EXTREMITIES: Normal range of motion.? No edema. SKIN: Warm, dry, no rash. NEURO: Alert and oriented x3. PSYCH: Normal mood and affect. Objective Data
--- NOTE | 2023-01-25 11:22 | PM.CNPUL ---
Assessment and Plan Assessment and plan (1) Pseudomonas respiratory infection: Code(s): J98.8 - Other specified respiratory disorders; B96.5 - Pseudomonas (aeruginosa) (mallei) (pseudomallei) as the cause of diseases classified elsewhere Status: Acute Assessment and Plan: GOLD grade 3 group E COPD (80 PY quit 2009), patient with Pseudomonas on 05/15/2022 hannah-sensitive other than intermediate to Zosyn, currently with 2 months worsening cough, phlegm production aches shortness of breath and wheezing followed by pulmonary team at [facility]. the patient had sputum collected on 01/21/2023 and by report this demonstrated Pseudomonas resistant to all min medications other than gentamicin, ertapenem and tobramycin. He was instructed to be admitted to our hospital for IV antibiotics. I have consulted with our Infectious Disease pharmacist and at this time will change him to meropenem 1 g q.12 hours and follow the patient for clinical response. He is having no wheezing and I do not believe he has a concurrent COPD exacerbation. I will continue his nebulized albuterol and ipratropium Q 6 hours at this time. I will add Mucinex 1200 mg p.o. b.i.d. and continue his Cornet flutter valve for mucus expectoration assistance. Currently he is on room air with saturations 98% so has no alteration in his baseline oxygenation. I have sent a sputum for Gram stain and culture to our laboratory while we are waiting the medical records from [facility]. The patient asked me if he has an immunodeficiency because he has multiple infections, bronchiectasis on his CT scan. Previously immunoglobulins were checked on 05/08/2021 with a total IgG =1090, normal 600-15 40. Total IgG 1 = 534, normal 382-929. IgG 2 = 221, normal 241-700. IgG 3 = 90, normal 22-178. IgG 4 =84, normal 4-86. IgE =247 normal less than 114. HIV negative on 05/21/2022. QuantiFERON gold negative on 05/11/2021. no additional testing at this time. If the patient responds favorably to meropenem over the next days we will place a PICC line so he can be discharged home for continuation of therapy. History of Present Illness History of Present Illness Consult date: 01/25/23 Chief complaint: Chronic Pneumonia Narrative: 01/25/2023: This is a new pulmonary consult for Pseudomonas pneumonia. 72-year-old with a history of AV block status post permanent pacemaker, BPH, anemia, CKD, Covid 04/2020, empyema left on 06 09 2021 status post thoracotomy and decortication with cultures revealing strep intermedius and Staph hominis, heart failure with preserved ejection fraction and impaired diastolic function, hypertension, obstructive sleep apnea on 2 L nasal cannula at night, peripheral vascular disease and gold grade 3 group E COPD. patient with Pseudomonas on 05/15/2022 hannah-sensitive other than intermediate to Zosyn. At baseline the patient tells me he can walk 2 blocks, he has no oxygen at rest and is prescribed 2 L with exercise and he intermittently uses this. Patient uses 2 L at night. Patient smoked tobacco from age [age] at 2 packs per day for total of 80 pack years. He quit in 2009 he was exposed to secondhand smoke from his mother. 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 Patient is followed by pulmonary team at [facility] and approximately 2 months ago he developed cough, phlegm production, aches, shortness of breath and wheezing. He was treated with 5 days of prednisone and he said he did well until about 10 days after the prednisone was discontinued. He then developed similar symptoms. He does not remember if he was given antibiotics. Approximately 10 days ago he was given per prednisone, CT scan of the chest was ordered because of continued symptoms. He felt better after 4 days but the last 3 days has been feeling weak and sick. Patient we
[2023-01-25] MEDS: amLODIPine BESYLATE 5 MG TABLET PO (11:52)
[2023-01-25] MEDS: guaiFENesin 12 HR 600 MG TABCR 1200 MG PO ×2 (15:19→21:03)
[2023-01-25] MEDS: hydrALAZINE HCL 20 MG/ML VIAL 10 MG IV PUSH (16:10)
[2023-01-25] MEDS: ACETAMINOPHEN 500 MG TABLET PO ×2 (16:10→22:07)
--- NOTE | 2023-01-25 18:50 | PC.NURSE ---
This patient, Freddy Hill, was transferred to [ [id number]] on 01/25/23 at 1850. Personal belongings sent with patient. Report given to [MARY Douglas @ [phone] ]. Appropriate documentation sent with patient.
[2023-01-25] MEDS: GABAPENTIN 300 MG CAPSULE PO (21:02)
[2023-01-25] MEDS: TAMSULOSIN HCL 0.4 MG CAPSULE 0.8 MG PO (21:02)
[2023-01-25] MEDS: MEROPENEM 1 GM in SODIUM CHLORIDE 0.9% IV 100 ML IVPB (21:03)
[2023-01-25] MEDS: carvediloL 25 MG TABLET PO (21:03)
[2023-01-25] MEDS: CLOPIDOGREL BISULFATE 75 MG TABLET PO (21:03)
[2023-01-25] MEDS: DOXEPIN HCL 25 MG CAPSULE PO (21:03)
[2023-01-25] MEDS: traMADol HCL (*CRX) 50 MG TABLET PO (22:08)
[2023-01-26] VITALS (14 sets, daily range): BP systolic 128–166; BP diastolic 70–79; PULSE 74–90; RESP 16–18; TEMP 36.1–36.4; O2SAT 93–98
[2023-01-26] MEDS: ALBUTEROL SULFATE NEB 2.5 MG/3 ML INH INHALATION ×4 (01:36→19:51)
[2023-01-26] MEDS: IPRATROPIUM BR 0.02% INH SOLN 0.5 MG/2.5 ML VIAL INHALATION ×4 (01:36→19:51)
[2023-01-26 05:51] LABS: Basophils Percent Auto 0.5 % (0.2-1.2); Eosinophils Absolute Auto 0.5 K/mm3 (0-0.3); Hematocrit 34.5 % (42.0-52.0); Hemoglobin 9.8 g/dL (14.0-18.0); Immature Granulocyte Absolute 0.03 K/mm3 (0.00-0.031); Immature Granulocyte Percent A 0.4 % (0-0.5); Lymphocytes Absolute Auto 1.09 K/mm3 (0.9-3.2); Lymphocytes Percent Auto 14.9 % (18.3-44.2); Mean Corpuscular HGB Conc 28.4 g/dl (32-36); Mean Corpuscular Hemoglobin 24.4 pg (26-34); Mean Corpuscular Volume 85.8 fl (80-100); Mean Platelet Volume 9.9 fl (7.4-10.4); Monocytes Absolute Auto 0.7 K/mm3 (0.1-0.6); Monocytes Percent Auto 9.1 % (2.6-8.5); Neutrophils Percent Auto 68.1 % (45.5-73.1); Platelet Count Result 172 k/mm3 (150-375); Red Blood Count 4.02 M/mm3 (4.6-6.20); Red Cell Distribution Width 16.9 % (11.5-14.5); White Blood Count 7.3 K/mm3 (4.5-10.0)
[2023-01-26 05:59] LABS: Alanine Aminotransferase 13 U/L (6-50); Albumin Level 3.2 g/dL (3.5-5.1); Alkaline Phosphatase 79 U/L (38-126); Anion Gap 3 mmol/L (8-16); Aspartate Amino Transferase 17 U/L (17-59); Bilirubin,Total 0.5 mg/dL (0.2-1.3); Blood Urea Nitrogen 20 mg/dL (9-20); Calcium 8.1 mg/dL (8.4-10.2); Carbon Dioxide 26 mmol/L (22-30); Chloride 109 mmol/L (98-107); Estimated CRCL calculation 48 ml/min; Estimated Glomerular Filt Rate 46; Glucose 86 mg/dL (65-110); Potassium 4.1 mmol/L (3.4-5.0); Sodium 138 mmol/L (137-145)
[2023-01-26] MEDS: MEROPENEM 1 GM in SODIUM CHLORIDE 0.9% IV 100 ML 200 ML IVPB (08:19)
[2023-01-26] MEDS: guaiFENesin 12 HR 600 MG TABCR 1200 MG PO ×2 (08:20→20:13)
[2023-01-26] MEDS: carvediloL 25 MG TABLET PO ×2 (08:20→20:14)
[2023-01-26] MEDS: MULTIVITAMINS THERAPEUTIC TAB (*BKC) 1 TABLET PO (08:21)
[2023-01-26] MEDS: POTASSIUM CHLORIDE 10 MEQ TABLET.ER PO (08:21)
[2023-01-26] MEDS: amLODIPine BESYLATE 5 MG TABLET PO (08:21)
[2023-01-26] MEDS: PANTOPRAZOLE 40 MG TABLET PO (08:21)
[2023-01-26] MEDS: RIVAROXABAN 2.5 MG TABLET PO ×2 (08:21→20:14)
[2023-01-26] MEDS: FUROSEMIDE 40 MG TABLET PO (08:22)
[2023-01-26 09:06] LABS: Crenated RBC 2+ (NORMAL); Hypochromasia 2+ (NORMAL); Ovalocytes 1+ (NORMAL); Platelet Estimate Adequate (Adequate); Schistocytes None Seen (NORMAL)
--- NOTE | 2023-01-26 09:07 | PM.PNPUL ---
Progress Note: A&P Assessment and Plan (1) Pseudomonas respiratory infection: Code(s): J98.8 - Other specified respiratory disorders; B96.5 - Pseudomonas (aeruginosa) (mallei) (pseudomallei) as the cause of diseases classified elsewhere Status: Acute Assessment and Plan: GOLD grade 3 group E COPD (80 PY quit 2009), patient with Pseudomonas on 05/15/2022 hannah-sensitive other than intermediate to Zosyn, currently with 2 months worsening cough, phlegm production aches shortness of breath and wheezing followed by pulmonary team at [facility]. the patient had sputum collected on 01/21/2023 and by report this demonstrated Pseudomonas resistant to all min medications other than gentamicin, ertapenem and tobramycin. He was instructed to be admitted to our hospital for IV antibiotics. 01/25 I have consulted with our Infectious Disease pharmacist and at this time will change him to meropenem 1 g q.12 hours and follow the patient for clinical response. He is having no wheezing and I do not believe he has a concurrent COPD exacerbation. I will continue his nebulized albuterol and ipratropium Q 6 hours at this time. I will add Mucinex 1200 mg p.o. b.i.d. and continue his Cornet flutter valve for mucus expectoration assistance. Currently he is on room air with saturations 98% so has no alteration in his baseline oxygenation. I have sent a sputum for Gram stain and culture to our laboratory while we are waiting the medical records from [facility]. The patient asked me if he has an immunodeficiency because he has multiple infections, bronchiectasis on his CT scan. Previously immunoglobulins were checked on 05/08/2021 with a total IgG =1090, normal 600-15 40. Total IgG 1 = 534, normal 382-929. IgG 2 = 221, normal 241-700. IgG 3 = 90, normal 22-178. IgG 4 =84, normal 4-86. IgE =247 normal less than 114. HIV negative on 05/21/2022. QuantiFERON gold negative on 05/11/2021. no additional testing at this time. If the patient responds favorably to meropenem over the next days we will place a PICC line so he can be discharged home for continuation of therapy. 01/26 Patient tells me that he feels better. Denies any fever. Minimal cough and minimal phlegm production. White blood cell count is 7.3, creatinine is 1.5. Room air saturations are 93%. No wheezes Natalia feels the albuterol and ipratropium nebulizers are helping and he would like to continue these today Plan: Continue meropenem 1 g IV q.12 hours. Will initiate the process for home meropenem for for total of 14 days. Patient should have a PICC line placed and arrangements made for home IV antibiotics. In the past his sisters have administered these IV antibiotics in the patient feels that his sister's can do the same now. continue albuterol and ipratropium nebulizers. Discussed with Dr. Corona, will follow with you. Subjective Date/time seen: 01/26/23 09:07 Interval history: 01/25/2023:? This is a new pulmonary consult for Pseudomonas pneumonia.? 72-year-old with a history of AV block status post permanent pacemaker, BPH, anemia, CKD, Covid 04/2020, empyema left on 06 09 2021 status post thoracotomy and decortication with cultures revealing strep intermedius and Staph hominis, heart failure with preserved ejection fraction and impaired diastolic function, hypertension, obstructive sleep apnea on 2 L nasal cannula at night, peripheral vascular disease and gold grade 3 group E COPD.? patient with Pseudomonas on 05/15/2022 hannah-sensitive other than intermediate to Zosyn. ? At baseline the patient tells me he can walk 2 blocks, he has no oxygen at rest and is prescribed 2 L with exercise and he intermittently uses this.? Patient uses 2 L at night. ? Patient smoked tobacco from age [age] at 2 packs per day for total of 80 pack years.? He quit in 2009 he was exposed to secondhand smoke from his mother.? He denies vaping, illicit drug use, sandbl
--- NOTE | 2023-01-26 12:42 | WPDPN ---
Progress Note: A&P Assessment and Plan (1) Chronic pneumonia: Code(s): J18.9 - Pneumonia, unspecified organism Status: Acute Assessment and Plan: The patient has a history of Pseudomonas organ dose a in his sputum. The patient was started on meropenem. Pulmonology has been consulted. CBT and neb treatments were prescribed Repeat cultures pending 01/26/2023 inteval history: 72-year-old male with recurrent pneumonia sputum culture is positive for Pseudomonas seen by pulmonology recommending to continue meropenem for total of 14 days, patient clinical symptoms have improved is ambulating in the hallway without any difficulty or oxygen, daycare worker is arranging for outpatient antibiotic, repeat blood culture no growth so far his sister will administer IV antibiotics at home, will continue to monitor and possibly discharge the patient tomorrow. (2) Hypertension, uncontrolled: Code(s): I10 - Essential (primary) hypertension Status: Acute Assessment and Plan: Patient's blood pressure was elevated this evening he was given Lopressor and hydralazine. Continue with his Coreg. Continue with p.r.n. hydralazine. Add amlodipine (3) COPD (chronic obstructive pulmonary disease): Qualifiers: COPD type: emphysema Emphysema type: panlobular Qualified Code(s): J43.1 - Panlobular emphysema Code(s): J44.9 - Chronic obstructive pulmonary disease, unspecified Status: Acute Assessment and Plan: Continue with nebulizer treatments. (4) CKD (chronic kidney disease): Qualifiers: Chronic kidney disease stage: stage 3 (moderate) Code(s): N18.9 - Chronic kidney disease, unspecified Status: Acute Assessment and Plan: Continue to monitor the patient is near his baseline. (5) Obstructive sleep apnea: Code(s): G47.33 - Obstructive sleep apnea (adult) (pediatric) Status: Chronic Assessment and Plan: The patient only wears oxygen at night 2 L per nasal cannula does not wear CPAP. (6) BPH (benign prostatic hyperplasia): Code(s): N40.0 - Benign prostatic hyperplasia without lower urinary tract symptoms Status: Acute Assessment and Plan: Continue tamsulosin (7) Chronic anemia: Code(s): D64.9 - Anemia, unspecified Status: Acute Assessment and Plan: Could be related to his chronic kidney disease. The patient appears to be above his baseline. (8) Heart failure with preserved ejection fraction: Code(s): I50.30 - Unspecified diastolic (congestive) heart failure Status: Acute Assessment and Plan: Continue with Coreg. Continue with Lasix (9) Urinary tract infection: Qualifiers: Urinary tract infection type: acute cystitis Hematuria presence: without hematuria Qualified Code(s): N30.00 - Acute cystitis without hematuria Code(s): N39.0 - Urinary tract infection, site not specified Status: Acute Assessment and Plan: The patient is on Cipro for E coli UTI. This has been discontinued as he is already on medical Subjective Date/time seen: 01/26/23 12:42 Interval history: Chart reviewed.? Chronic cough however worsening since past few months.? Sputum culture was done which grew Pseudomonas drug-resistant.? Also having urine symptoms is also chronic problem but with acute symptoms.? No fever chills.? White cell count was normal.? Has underlying CKD stage 3 baseline creatinine 1.5-1.7.? UA positive for UTI.? Chest x-ray with probable COPD and/or chronic interstitial disease with mild per interstitial edema.? BNP elevated at 5000.? CT chest reviewed on 01/18/2023 with chronic pneumonia involving the lower lobes and left upper lobe with severe emphysema.? Blood culture urine culture has been ordered and pending at this time on rivaroxaban.? Lasix 40 daily started on meropenem. 01/26/2023 inteval history: 72-year-old male with recurrent pneumonia sputum culture i
[2023-01-26] MEDS: TAMSULOSIN HCL 0.4 MG CAPSULE 0.8 MG PO (20:13)
[2023-01-26] MEDS: CLOPIDOGREL BISULFATE 75 MG TABLET PO (20:14)
[2023-01-26] MEDS: LORATADINE 10 MG TABLET PO (20:18)
[2023-01-26] MEDS: CENTRAL LINE FLUSH 10 ML IV PUSH (20:18)
[2023-01-26] MEDS: MEROPENEM 1 GM in SODIUM CHLORIDE 0.9% IV 100 ML IVPB (20:18)
[2023-01-26] MEDS: GABAPENTIN 300 MG CAPSULE PO (20:19)
[2023-01-26] MEDS: ACETAMINOPHEN 500 MG TABLET PO (20:23)
[2023-01-26] MEDS: traMADol HCL (*CRX) 50 MG TABLET PO (20:24)
[2023-01-27] VITALS (8 sets, daily range): BP systolic 114; BP diastolic 79; PULSE 74–87; RESP 16–18; TEMP 36.5; O2SAT 91–100
[2023-01-27] MEDS: IPRATROPIUM BR 0.02% INH SOLN 0.5 MG/2.5 ML VIAL INHALATION ×3 (02:21→13:45)
[2023-01-27] MEDS: ALBUTEROL SULFATE NEB 2.5 MG/3 ML INH INHALATION ×3 (02:25→13:45)
[2023-01-27] MEDS: RIVAROXABAN 2.5 MG TABLET PO (09:36)
[2023-01-27] MEDS: MEROPENEM 1 GM in SODIUM CHLORIDE 0.9% IV 100 ML IVPB ×2 (09:36→16:14)
[2023-01-27] MEDS: amLODIPine BESYLATE 5 MG TABLET PO (09:36)
[2023-01-27] MEDS: PANTOPRAZOLE 40 MG TABLET PO (09:36)
[2023-01-27] MEDS: carvediloL 25 MG TABLET PO (09:36)
[2023-01-27] MEDS: POTASSIUM CHLORIDE 10 MEQ TABLET.ER PO (09:36)
[2023-01-27] MEDS: guaiFENesin 12 HR 600 MG TABCR 1200 MG PO (09:36)
[2023-01-27] MEDS: MULTIVITAMINS THERAPEUTIC TAB (*BKC) 1 TABLET PO (09:36)
[2023-01-27] MEDS: FUROSEMIDE 40 MG TABLET PO (09:36)
--- NOTE | 2023-01-27 10:39 | PM.PNPUL ---
Progress Note: A&P Assessment and Plan (1) Pseudomonas respiratory infection: Code(s): J98.8 - Other specified respiratory disorders; B96.5 - Pseudomonas (aeruginosa) (mallei) (pseudomallei) as the cause of diseases classified elsewhere Status: Acute Assessment and Plan: GOLD grade 3 group E COPD (80 PY quit 2009), patient with Pseudomonas on 05/15/2022 hannah-sensitive other than intermediate to Zosyn, currently with 2 months worsening cough, phlegm production aches shortness of breath and wheezing followed by pulmonary team at [facility]. the patient had sputum collected on 01/21/2023 and by report this demonstrated Pseudomonas resistant to all min medications other than gentamicin, ertapenem and tobramycin. He was instructed to be admitted to our hospital for IV antibiotics. 01/25 I have consulted with our Infectious Disease pharmacist and at this time will change him to meropenem 1 g q.12 hours and follow the patient for clinical response. He is having no wheezing and I do not believe he has a concurrent COPD exacerbation. I will continue his nebulized albuterol and ipratropium Q 6 hours at this time. I will add Mucinex 1200 mg p.o. b.i.d. and continue his Cornet flutter valve for mucus expectoration assistance. Currently he is on room air with saturations 98% so has no alteration in his baseline oxygenation. I have sent a sputum for Gram stain and culture to our laboratory while we are waiting the medical records from [facility]. The patient asked me if he has an immunodeficiency because he has multiple infections, bronchiectasis on his CT scan. Previously immunoglobulins were checked on 05/08/2021 with a total IgG =1090, normal 600-15 40. Total IgG 1 = 534, normal 382-929. IgG 2 = 221, normal 241-700. IgG 3 = 90, normal 22-178. IgG 4 =84, normal 4-86. IgE =247 normal less than 114. HIV negative on 05/21/2022. QuantiFERON gold negative on 05/11/2021. no additional testing at this time. If the patient responds favorably to meropenem over the next days we will place a PICC line so he can be discharged home for continuation of therapy. 01/26 Patient tells me that he feels better. Denies any fever. Minimal cough and minimal phlegm production. White blood cell count is 7.3, creatinine is 1.5. Room air saturations are 93%. No wheezes Natalia feels the albuterol and ipratropium nebulizers are helping and he would like to continue these today 01/27 Patient tells me he is improved. He feels better than he has over the last month. He has minimal cough and has produced 1 phlegm this morning. He has no hemoptysis. He is afebrile. PICC line was placed yesterday. Plan: Continue meropenem 1 g IV q.12 hours. Plan is for Fourteen days of IV meropenem 1 g q.12 hours with the last day given on 02/07/2023. Patient, patient's sister and [facility] care to administer home meropenem and per the patient there is a meeting today at 11:00 a.m.. From a pulmonary perspective patient is ready to be discharged on these pulmonary medications: Meropenem 1 g IV q.12 hours with the last day of treatment 02/07/2023 Wixela 500-50 at 1 puff q.12 hours. Spiriva Respimat 2.5 mcg at 2 puffs q.h.s. rescue albuterol 2 puffs q.4 hours p.r.n. shortness of breath or wheezing. No oxygen at rest, ambulation 2 L and Sleep 2 L p.r.n.. Patient to follow-up at [facility] with Daniela Hilario, please include her on the discharge summary. Discussed with Dr. Corona, will sign off, call with questions. Subjective Date/time seen: 01/27/23 10:39 Interval history: 01/25/2023:? This is a new pulmonary consult for Pseudomonas pneumonia.? 72-year-old with a history of AV block status post permanent pacemaker, BPH, anemia, CKD, Covid 04/2020, empyema left on 06 09 2021 status post thoracotomy and decortication with cultures revealing strep intermedius and Staph hominis, heart failure wi
--- NOTE | 2023-01-27 12:44 | PM.DS ---
DS: Admitting Diagnosis Discharge Date 01/27/2023 Admitting Diagnosis Pseudomonas in sputum DS: Discharge Diagnosis Discharge Diagnosis (1) Chronic pneumonia: Code(s): J18.9 - Pneumonia, unspecified organism Status: Acute Assessment and Plan: The patient has a history of Pseudomonas organ dose a in his sputum. The patient was started on meropenem. Pulmonology has been consulted. 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 (2) Hypertension, uncontrolled: Code(s): I10 - Essential (primary) hypertension Status: Acute Assessment and Plan: Patient's blood pressure was elevated this evening he was given Lopressor and hydralazine. Continue with his Coreg. Continue with p.r.n. hydralazine. Add amlodipine (3) COPD (chronic obstructive pulmonary disease): Qualifiers: COPD type: emphysema Emphysema type: panlobular Qualified Code(s): J43.1 - Panlobular emphysema Code(s): J44.9 - Chronic obstructive pulmonary disease, unspecified Status: Acute Assessment and Plan: Continue with nebulizer treatments. (4) CKD (chronic kidney disease): Qualifiers: Chronic kidney disease stage: stage 3 (moderate) Code(s): N18.9 - Chronic kidney disease, unspecified Status: Acute Assessment and Plan: Continue to monitor the patient is near his baseline. (5) Obstructive sleep apnea: Code(s): G47.33 - Obstructive sleep apnea (adult) (pediatric) Status: Chronic Assessment and Plan: The patient only wears oxygen at night 2 L per nasal cannula does not wear CPAP. (6) BPH (benign prostatic hyperplasia): Code(s): N40.0 - Benign prostatic hyperplasia without lower urinary tract symptoms Status: Acute Assessment and Plan: Continue tamsulosin (7) Chronic anemia: Code(s): D64.9 - Anemia, unspecified Status: Acute Assessment and Plan: Could be related to his chronic kidney disease. The patient appears to be above his baseline. (8) Heart failure with preserved ejection fraction: Code(s): I50.30 - Unspecified diastolic (congestive) heart failure Status: Acute Assessment and Plan: Continue with Coreg. Continue with Lasix (9) Urinary tract infection: Qualifiers: Urinary tract infection type: acute cystitis Hematuria presence: without hematuria Qualified Code(s): N30.00 - Acute cystitis without hematuria Code(s): N39.0 - Urinary tract infection, site not specified Status: Acute Assessment and Plan: The patient is on Cipro for E coli UTI. 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 The patient has been feeling weak and having a cough so a sputum culture was obtained.? The Pseudomonas is only sensitive to gentamicin ertapenem and tobramycin.? Patient is not been having any fever chills.? He has no chest pain or chest pressure.? He is not hypoxic.? The patient also stated that he has E coli in his urine as well.? The patient was given Invanz for the infection and was given Apresoline for high pressure.? He was also given Lopressor IV as well.? His H&H is 11.1 and 38.3 which is his baseline.? Cr
[2023-01-27] MEDS: CENTRAL LINE FLUSH 10 ML IV PUSH (16:14)
--- NOTE | 2023-01-27 16:14 | PC.NURSE ---
Last dose of Meropenem given at 1614. RN called pharmacy to verify this was okay to give early. Pt being discharged home on this IV abx, however it can not be delivered until tomorrow morning. Pt received infusion teaching prior to discharge.
== END 2023-01-27 17:30 | disposition home or self-care (01) ==
LOC: ANHED 17:57 → ANHIMU 01-25 02:15 → ANH3MEDSUR 01-26 12:45 → ANHIMU 01-28 11:11
PROVIDERS: Emergency Medicine; Nurse Practitioner; Admitting Provider Internal Medicine; Emergency Provider Emergency Medicine; PCP Family Medicine; Visit Provider Family Medicine
DX: J18.9 Pneumonia, unspecified organism (principal); B96.5 Pseudomonas (aeruginosa) (mallei) (pseudomallei) as the cause of diseases classified elsewhere; N30.00 Acute cystitis without hematuria; D64.9 Anemia, unspecified; I13.0 Hypertensive heart and chronic kidney disease with heart failure and stage 1 through stage 4 chronic kidney disease, or unspecified chronic kidney disease; N18.30 Chronic kidney disease, stage 3 unspecified; I50.30 Unspecified diastolic (congestive) heart failure; J44.9 Chronic obstructive pulmonary disease, unspecified; L40.9 Psoriasis, unspecified; G47.33 Obstructive sleep apnea (adult) (pediatric); N40.0 Benign prostatic hyperplasia without lower urinary tract symptoms; Z95.810 Presence of automatic (implantable) cardiac defibrillator; I73.9 Peripheral vascular disease, unspecified; Z86.16 Personal history of COVID-19; Z87.891 Personal history of nicotine dependence; Z79.1 Long term (current) use of non-steroidal anti-inflammatories (NSAID); Z79.51 Long term (current) use of inhaled steroids; Z79.52 Long term (current) use of systemic steroids; Z79.01 Long term (current) use of anticoagulants; Z79.899 Other long term (current) drug therapy; Z82.49 Family history of ischemic heart disease and other diseases of the circulatory system
CPT/HCPCS: 36415; 36569; 71045; 80053; 81001; 83605; 83735; 85025; 85610; 85730; 87040; 87070; 87077; 87086; 87186; 87205; 94640; 94667; 94668; 96365; 96366; 96367; 96375; 96376; 99285; A9270; C1751; G0378; J0360; J1335; J2185

== ENCOUNTER 2023-01-29 10:33 | Emergency (ER) | payer MEDICARE, SELFPAY ==
[2023-01-29 10:34] VITALS: BP 146/56; PULSE 83; RESP 18; TEMP 36.4; O2SAT 93
--- NOTE | 2023-01-29 10:42 | ED.GENADULT ---
HPI - General Adult General Chief complaint: Unspecified Stated complaint: Nurse sent in for PICC line dressing change Time Seen by Provider: 01/29/23 10:38 History of Present Illness HPI narrative: Patient is a 72-year-old male who presents to the ER to have a dressing change for his PICC line. Patient recently hospitalized for multidrug-resistant Pseudomonas lung infection. He reports he was discharged on tobramycin. Home health was supposed to change his dressing but because he is not confined to his appointment he was able to [facility] over there would not do the change today. He thus presented here for help. Related Data Home Medications Medication Instructions Recorded Confirmed albuterol sulfate 2.5 mg/3 mL 2.5 mg inhalation Q4-6H PRN SOB 03/03/21 01/24/23 (0.083 %) solution for nebulization tiotropium bromide 2.5 2 puff inhalation HS 03/03/21 01/24/23 mcg/actuation mist for inhalation (Spiriva Respimat) acetaminophen 500 mg tablet 500 mg PO Q6H PRN Moderate Pain 06/02/21 01/24/23 (Scale Score 5-6) polyethylene glycol 3350 17 gram 17 g PO DAILY PRN Constipation 07/17/21 01/24/23 oral powder packet (Miralax) fluticasone 500 mcg-salmeterol 50 1 inh inhalation Q12H 10/12/21 01/24/23 mcg/dose blistr powdr for inhalation (Wixela Inhub) pantoprazole 40 mg tablet,delayed 40 mg PO DAILY 01/11/22 01/24/23 release doxepin 25 mg capsule 25 mg PO QHS PRN Sleep 05/15/22 01/24/23 rivaroxaban 2.5 mg tablet (Xarelto) 2.5 mg PO BID 05/15/22 01/24/23 cetirizine 10 mg tablet (Zyrtec) 10 mg PO DAILY 07/12/22 01/24/23 multivitamin (Daily Multi-Vitamin 1 tablet PO DAILY 07/12/22 01/24/23 tablet) furosemide 40 mg tablet 40 mg PO DAILY 10/21/22 01/24/23 tamsulosin 0.4 mg capsule 0.8 mg PO HS 01/24/23 01/24/23 triamcinolone acetonide 0.1 % 1 applic topical PRN PRN Rash 01/24/23 01/24/23 topical ointment valacyclovir 1 gram tablet 1,000 mg PO Q12H PRN Cold Sores 01/24/23 01/24/23 Allergies Allergy/AdvReac Type Severity Reaction Status Date / Time No Known Allergies Allergy Verified 01/24/23 14:21 [facility] Past Medical History Medical History Arthritis AV block Status post Medtronic pacemaker placement. Benign prostatic hyperplasia Chronic anemia Chronic anemia Chronic kidney disease, stage 3 COPD with emphysema COVID-19 (04/2020) Eczema Empyema of left pleural space (05/2021) Pleural fluid grew out strep intermedius and staph hominis. Status post thoracotomy with decortication. Femoral artery stenosis, left Gastroesophageal reflux disease Heart failure with preserved ejection fraction Echocardiogram in November 2021 showed normal LV size and function with an EF measured at 66% and impaired diastolic relaxation. Hypertension Obstructive sleep apnea On 2 L nasal cannula at nighttime. Peripheral vascular disease Status post right carotid endarterectomy. Status post left lower extremity stent. Psoriasis Urethral stricture Surgical History Surgical History AICD (automatic cardioverter/defibrillator) present History of dilation of urethra History of herniorrhaphy History of hip replacement Bilaterally with revision History of right-sided carotid endarterectomy History of thoracotomy (05/2021) Left thoracotomy with decortication for empyema. History of tonsillectomy Status post peripheral artery angioplasty with insertion of stent Left lower extremity. Status post placement of cardiac pacemaker (06/2020) Family History Family History Father Hypertension Heart disease Cerebrovascular accident Mother Asthma Diabetes mellitus Hypertension Sibling Hypertension Social History Social History Social History: The patient currently lives in [place] with his sister. He is divo
--- NOTE | 2023-01-29 11:39 | PC.NURSE ---
Old PICC dressing removed, using sterile technique area cleansed with chlorahexidine swab and new dressing applied using sterile technique. No drainage, redness, swelling or pain noted to PICC site.
== END 2023-01-29 11:42 | disposition home or self-care (01) ==
PROVIDERS: Emergency Provider Emergency Medicine; PCP Family Medicine
DX: Z48.01 Encounter for change or removal of surgical wound dressing (principal); Z95.9 Presence of cardiac and vascular implant and graft, unspecified; I13.0 Hypertensive heart and chronic kidney disease with heart failure and stage 1 through stage 4 chronic kidney disease, or unspecified chronic kidney disease; I50.9 Heart failure, unspecified; N18.30 Chronic kidney disease, stage 3 unspecified; D64.9 Anemia, unspecified; N40.0 Benign prostatic hyperplasia without lower urinary tract symptoms; J43.9 Emphysema, unspecified; K21.9 Gastro-esophageal reflux disease without esophagitis; G47.33 Obstructive sleep apnea (adult) (pediatric); I73.9 Peripheral vascular disease, unspecified; Z95.820 Peripheral vascular angioplasty status with implants and grafts; L40.9 Psoriasis, unspecified; Z79.51 Long term (current) use of inhaled steroids; Z79.01 Long term (current) use of anticoagulants; Z95.810 Presence of automatic (implantable) cardiac defibrillator; Z87.891 Personal history of nicotine dependence
CPT/HCPCS: 99282

== ENCOUNTER 2023-02-01 14:54 | Outpatient (CLI) | payer MEDICARE, SELFPAY ==
--- NOTE | ~2023-02-01 | CT_ITS ---
EXAMINATION: CT abdomen pelvis wo con DATE: 02/01/2023 15:16 INDICATION: Recurrent UTI TECHNIQUE: Computed tomography (CT) of the abdomen and pelvis was performed without intravenous contr ast. The dose-length product was 725.68 mGy-cm. Automated exposure control and iterative reconstructi on technique were employed. COMPARISON: CT dated 05/15/2022 FINDINGS: There is peribronchial thickening of the lower lobes, left greater than right. There is a 7 mm left lower lobe nodule, image 21. There is an 8 mm left lower lobe nodule, image 10. There are re ticulonodular densities bilaterally in the lower lobes and lingula. There are additional smaller nodu les in the lower lungs. There is an 8 mm right lower lobe nodule, image 26. Heart size normal. There is a hiatal hernia. No significant pleural or pericardial effusion. There are changes of ventral abdo aleah wall hernia repair. There is extensive atherosclerosis of the aorta with infrarenal abdominal a ortic aneurysm measuring 3.2 cm. There is aneurysmal dilatation of the common iliac arteries bilatera lly measuring 2.6 cm bilaterally. There are bilateral hip arthroplasties. The liver, spleen, pancreas, adrenal glands are unremarkable. There is a 7 mm nonobstructing right re nal stone. There is cortical thinning of the left kidney, likely related to previous reflux or infect ion. Nonobstructive bowel gas pattern. Moderate colonic fecal loading. There is a small amount of flu id at the umbilicus in the subcutaneous tissues. No lymphadenopathy. Gallbladder is present. Evaluati on in the pelvis is limited. IMPRESSION: 1. Bibasilar reticulonodular opacities with multiple new nodules in the lower lungs, measuring 8 mm o r less. There is peribronchial thickening in the left lower lobe. Findings may be infectious/inflamma tory, although neoplasm not excluded. Consider further evaluation with pet/CT scan or follow-up Tue low dose CT chest. 2: Infrarenal abdominal aortic aneurysm measuring 3.2 cm with aneurysmal dilation of the common iliac arteries measuring up to 2.6 cm. 3: Nonobstructing right nephrolithiasis. 3: Reviewed, dictated and finalized at location [] IMPRESSION: 1. Bibasilar reticulonodular opacities with multiple new nodules in the lower l ungs, measuring 8 mm or less. There is peribronchial thickening in the left low er lobe. Findings may be infectious/inflammatory, although neoplasm not exclude d. Consider further evaluation with pet/CT scan or follow-up 1 month low dose C T chest. 2: Infrarenal abdominal aortic aneurysm measuring 3.2 cm with aneurysmal dilati on of the common iliac arteries measuring up to 2.6 cm. 3: Nonobstructing right nephrolithiasis. 3:
== END 2023-02-01 14:55 | disposition home or self-care (01) ==
PROVIDERS: PCP Family Medicine; Visit Provider Urology
DX: N39.0 Urinary tract infection, site not specified (principal); N20.0 Calculus of kidney; I71.43 Infrarenal abdominal aortic aneurysm, without rupture
CPT/HCPCS: 36592; 74176; 80053

== ENCOUNTER 2023-02-08 10:59 | Outpatient (RCR) | payer MEDICARE, SELFPAY ==
[2023-02-01 15:04] LABS: Alanine Aminotransferase 14 U/L (6-50); Albumin Level 3.8 g/dL (3.5-5.1); Alkaline Phosphatase 97 U/L (38-126); Anion Gap 6 mmol/L (8-16); Aspartate Amino Transferase 26 U/L (17-59); Bilirubin,Total 0.7 mg/dL (0.2-1.3); Blood Urea Nitrogen 38 mg/dL (9-20); Calcium 8.6 mg/dL (8.4-10.2); Carbon Dioxide 29 mmol/L (22-30); Chloride 106 mmol/L (98-107); Estimated Glomerular Filt Rate 43; Glucose 92 mg/dL (65-110); Potassium 4.8 mmol/L (3.4-5.0); Sodium 141 mmol/L (137-145)
[2023-02-08 13:11] LABS: Alanine Aminotransferase 18 U/L (6-50); Albumin Level 3.6 g/dL (3.5-5.1); Alkaline Phosphatase 115 U/L (38-126); Anion Gap 4 mmol/L (8-16); Aspartate Amino Transferase 29 U/L (17-59); Bilirubin,Total 0.5 mg/dL (0.2-1.3); Blood Urea Nitrogen 27 mg/dL (9-20); Calcium 8.4 mg/dL (8.4-10.2); Carbon Dioxide 33 mmol/L (22-30); Chloride 103 mmol/L (98-107); Estimated Glomerular Filt Rate 37; Glucose 94 mg/dL (65-110); Potassium 4.4 mmol/L (3.4-5.0); Sodium 140 mmol/L (137-145)
== END 2023-05-02 23:59 | disposition home or self-care (01) ==
LOC: ANHVASCINF 10:59
PROVIDERS: PCP Family Medicine; Visit Provider Nurse Practitioner
DX: A49.8 Other bacterial infections of unspecified site (principal)
CPT/HCPCS: 36415; 36592; 80053; 99211; G0463

== ENCOUNTER 2023-03-22 14:49 | Outpatient (CLI) | payer MEDICARE, SELFPAY | END 2023-03-22 14:50 | disposition home or self-care (01) | PROVIDERS: PCP Family Medicine; Visit Provider Nurse Practitioner | DX: A49.8 Other bacterial infections of unspecified site (principal) | CPT/HCPCS: 87070; 87205 ==

== ENCOUNTER 2023-03-24 11:04 | Outpatient (CLI) | payer MEDICARE, SELFPAY ==
--- NOTE | ~2023-03-24 | CT_ITS ---
EXAMINATION:CT diagnostic chest wo con DATE: 03/24/2023 11:27 INDICATION: Bacterial infection. TECHNIQUE: Computed tomography (CT) of the chest was performed without intravenous contrast. Automate d exposure control and iterative reconstruction technique were employed. The dose-length product (DLP ) was 318.29 mGy-cm. COMPARISON: Chest CT 01/18/2023, 05/15/23 FINDINGS: There is mild scarring at the lung apices. There is severe emphysema. There is mild elevati on of left hemidiaphragm. There is bronchiectasis in the inferior lungs. A calcified left lung nodule is consistent with old granulomatous disease. There are scattered nodules in the lungs with a lower lobe predominance, left worse than right. No pleural effusion. The heart size is normal. There are co ronary artery calcifications. No pericardial effusion. There is a 13 mm hyperdense cyst in left kidne y. There is a 15 mm simple cyst in left kidney. There is a 3.4 cm fusiform aneurysm of infrarenal aor ta. There is a left chest wall pacer with leads in the right atrium and right ventricle. Again seen i s a ductus bump of the aortic arch. There is mild mediastinal lymphadenopathy. There is severe cervic al and thoracic spondylosis. IMPRESSION: 1. Chronic pneumonia involving the lower lobes and left upper lobe, stable from 01/18/2023. 2. Severe emphysema. 3. 3.4 cm fusiform aneurysm of infrarenal aorta. Reviewed, dictated and finalized at location L.
== END 2023-03-24 11:05 | disposition home or self-care (01) ==
PROVIDERS: PCP Family Medicine; Visit Provider Nurse Practitioner
DX: A49.8 Other bacterial infections of unspecified site (principal); J18.9 Pneumonia, unspecified organism; J43.9 Emphysema, unspecified; I71.9 Aortic aneurysm of unspecified site, without rupture
CPT/HCPCS: 71250

== ENCOUNTER 2023-03-31 02:51 | Day surgery (SDC) | payer MEDICARE, SELFPAY ==
[2023-03-22 09:12] VITALS: BMI 29.6
[2023-03-31 09:53] VITALS: BP 163/76; PULSE 88; RESP 17; TEMP 36.1; O2SAT 97; BMI 28.9
[2023-03-31] MEDS: LACTATED RINGERS 1,000 ML 150 ML IV CONT (10:01)
--- NOTE | 2023-03-31 10:32 | WPDANESEPPF ---
Anes - Initial Pre Proc Eval Procedure: Operation Date: 03/31/23 11:00 Proposed Procedures p Screening Colonoscopy - Francisco Dos Santos MD Date/Time: 03/31/23 10:32 Surgeon: Francisco Dos Satnos MD Pre Op Diagnosis: neoplasm screening Patient Data Age: 72 Gender: M Height: 1.73 m Weight: 86.4 kg Last Vital Signs Temp 96.9 F L 03/31/23 09:53 Pulse 88 03/31/23 09:53 Resp 17 03/31/23 09:53 BP 163/76 H 03/31/23 09:53 Pulse Ox 97 03/31/23 09:53 O2 Del Method Room Air 03/31/23 09:53 Allergies Allergy/AdvReac Type Severity Reaction Status Date / Time No Known Allergies Allergy Verified 03/31/23 09:50 Home Medications Medication Instructions Recorded Confirmed Type albuterol sulfate 2.5 mg/3 mL 2.5 mg inhalation Q4-6H PRN SOB 03/03/21 03/31/23 History (0.083 %) solution for nebulization tiotropium bromide 2.5 2 puff inhalation HS 03/03/21 03/31/23 History mcg/actuation mist for inhalation (Spiriva Respimat) acetaminophen 500 mg tablet 500 mg PO Q6H PRN Moderate Pain 06/02/21 03/31/23 History (Scale Score 5-6) polyethylene glycol 3350 17 gram 17 g PO DAILY PRN Constipation 07/17/21 03/31/23 History oral powder packet (Miralax) fluticasone 500 mcg-salmeterol 50 1 inh inhalation Q12H 10/12/21 03/31/23 History mcg/dose blistr powdr for inhalation (Wixela Inhub) pantoprazole 40 mg tablet,delayed 40 mg PO DAILY 01/11/22 03/31/23 History release doxepin 25 mg capsule 25 mg PO QHS PRN Sleep 05/15/22 03/31/23 History rivaroxaban 2.5 mg tablet (Xarelto) 2.5 mg PO BID 05/15/22 03/31/23 History cetirizine 10 mg tablet (Zyrtec) 10 mg PO HS 07/12/22 03/31/23 History multivitamin (Daily Multi-Vitamin 1 tablet PO DAILY 07/12/22 03/31/23 History tablet) furosemide 40 mg tablet 40 mg PO 3XW 10/21/22 03/31/23 History tramadol 50 mg tablet 50 mg PO Q6H PRN Pain #30 tabs 11/04/22 03/31/23 Rx dupilumab 300 mg/2 mL subcutaneous 300 mg (2 mL) subcut .COMPLEX #4 mL 11/25/22 03/31/23 Rx syringe (Dupixent) gabapentin 300 mg capsule 300 mg PO HS PRN Pain #90 caps 01/20/23 03/31/23 Rx tamsulosin 0.4 mg capsule 0.8 mg PO HS 01/24/23 03/31/23 History triamcinolone acetonide 0.1 % 1 applic topical PRN PRN Rash 01/24/23 03/31/23 History topical ointment valacyclovir 1 gram tablet 1,000 mg PO Q12H PRN Cold Sores 01/24/23 03/31/23 History amlodipine 5 mg tablet (Norvasc) 5 mg PO HS 03/22/23 03/31/23 History atorvastatin 80 mg tablet 80 mg PO DAILY 03/22/23 03/31/23 History carvedilol 25 mg tablet 25 mg PO BID 03/22/23 03/31/23 History clopidogrel 75 mg tablet 75 mg PO HS 03/22/23 03/31/23 History potassium chloride 10 mEq 10 meq PO 3XW 03/22/23 03/31/23 History capsule,extended release Patient hx anesthesia problems: none Family hx anesthesia problems: none Results Review: All pre-operative results and documents have been reviewed as part of the pre-operative evaluation. [facility] Past Medical History Medical History Arthritis AV block Status post Medtronic pacemaker placement. Benign prostatic hyperplasia Chronic anemia Chronic anemia Chronic kidney disease, stage 3 COPD with emphysema COVID-19 (04/2020) Eczema Empyema of left pleural space (05/2021) Pleural fluid grew out strep intermedius and staph hominis. Status post thoracotomy with decortication. Femoral artery stenosis, left Gastroesophageal reflux disease Heart failure with preserved ejection fraction Echocardiogram in November 2021 showed normal LV size and function with an EF measured at 66% and impaired diastolic relaxation. Hypertension Obstructive sleep apnea On 2 L nasal cannula at nighttime. Peripheral vascular disease Status post right carotid endarterectomy. Status post left lower extremity stent. Psoriasis Urethral stricture Surgical History Surgical History AICD (automatic
--- NOTE | 2023-03-31 10:35 | PM.HPGS ---
History of Present Illness History of Present Illness Consent: Risks, benefits, and alternatives have been discussed and questions answered. Patient agrees to proceed with procedure. Chief complaint: neoplasm screening Narrative: Freddy Hill is a 72 year old male with last colonoscopy 7 years ago Review of Systems Constitutional: Constitutional: Denies headache(s) and Denies weakness Eyes: Eyes: Denies blurry vision ENT: Reports Normal hearing present, Denies headache(s) and Denies neck pain Cardiovascular: Cardiovascular: Denies chest pain and Denies dyspnea Respiratory: Respiratory: Denies dyspnea Gastrointestinal: Gastrointestinal: Reports no additional gastrointestinal complaints Genitourinary: Genitourinary: Denies dysuria Musculoskeletal: Musculoskeletal: Denies neck pain Integumentary/Breasts: Skin/Breast: Denies dry skin Neurologic: Reports Normal hearing present, Denies headache(s) and Denies weakness Psychiatric: Psychiatric: Denies anxiety Endocrine: Endocrine: Denies change in body appearance Hematologic/Lymphatic: Hematologic/Lymphatic: Denies easy bleeding Allergic/Immunologic: Allergic/Immunologic: Denies urticaria PMFSH Past Medical History Medical History (Updated 03/31/23 @ 10:36 by Francisco Dos Santos MD) Arthritis AV block Status post Medtronic pacemaker placement. Benign prostatic hyperplasia Chronic anemia Chronic anemia Chronic kidney disease, stage 3 Colon cancer screening COPD with emphysema COVID-19 (04/2020) Eczema Empyema of left pleural space (05/2021) Pleural fluid grew out strep intermedius and staph hominis. Status post thoracotomy with decortication. Femoral artery stenosis, left Gastroesophageal reflux disease Heart failure with preserved ejection fraction Echocardiogram in November 2021 showed normal LV size and function with an EF measured at 66% and impaired diastolic relaxation. Hypertension Obstructive sleep apnea On 2 L nasal cannula at nighttime. Peripheral vascular disease Status post right carotid endarterectomy. Status post left lower extremity stent. Psoriasis Urethral stricture Surgical History Surgical History AICD (automatic cardioverter/defibrillator) present History of dilation of urethra History of herniorrhaphy History of hip replacement Bilaterally with revision History of right-sided carotid endarterectomy History of thoracotomy (05/2021) Left thoracotomy with decortication for empyema. History of tonsillectomy Status post peripheral artery angioplasty with insertion of stent Left lower extremity. Status post placement of cardiac pacemaker (06/2020) Family History Family History Father Hypertension Heart disease Cerebrovascular accident Mother Asthma Diabetes mellitus Hypertension Sibling Hypertension Social History Social History Social History: The patient currently lives in [place] with his sister. He is and has 3 children and moved to the area from [place], [place] within the last year. 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 Former smoker (2 packs a day for 40 years), quit in 2009. No alcohol or illicit substance abuse. He designates his sister Michelle Schroeder as his surrogate decision maker and he wishes to be a full code. Smoking packs per day: 2 Smoking cigarettes per day: 40.0 Years smoked: 40 Smoking pack-years: 80.00 Smoking status: Former smoker Tobacco type: cigarettes Alcohol intake: current Substance use: never Substance use type: does not use Lack of Transportation: No Lack of Food: Never True Current Housing: I Have Housing Concerned About Future Housing: No Difficulty Paying Gas/Electric Bills: No Difficulty Paying for Meds: No Currently Unemployed: No Education: Bachelor's Degree Difficulty w/ Childcare
[2023-03-31 10:59] VITALS: BP 96/53; PULSE 71; RESP 21; O2SAT 96
[2023-03-31 11:09] VITALS: BP 129/72; PULSE 67; RESP 27; O2SAT 98
[2023-03-31 11:19] VITALS: BP 144/60; PULSE 65; RESP 21; O2SAT 99
== END 2023-03-31 11:25 | disposition home or self-care (01) ==
PROVIDERS: PCP Family Medicine; Visit Provider Internal Medicine Gastroenterology
PROC: 0DJD8ZZ Inspection of Lower Intestinal Tract, Via Natural or Artificial Opening Endoscopic (ICD-10-PCS; CPT 45378; principal; 2023-03-31 11:00)
DX: Z12.11 Encounter for screening for malignant neoplasm of colon (principal); D12.3 Benign neoplasm of transverse colon; K57.30 Diverticulosis of large intestine without perforation or abscess without bleeding; K64.8 Other hemorrhoids; I12.9 Hypertensive chronic kidney disease with stage 1 through stage 4 chronic kidney disease, or unspecified chronic kidney disease; N18.30 Chronic kidney disease, stage 3 unspecified; D64.9 Anemia, unspecified; N40.0 Benign prostatic hyperplasia without lower urinary tract symptoms; K21.9 Gastro-esophageal reflux disease without esophagitis; G47.33 Obstructive sleep apnea (adult) (pediatric); I73.9 Peripheral vascular disease, unspecified; J43.9 Emphysema, unspecified; L40.9 Psoriasis, unspecified; Z98.62 Peripheral vascular angioplasty status; Z79.51 Long term (current) use of inhaled steroids; Z79.01 Long term (current) use of anticoagulants; Z95.810 Presence of automatic (implantable) cardiac defibrillator; Z87.891 Personal history of nicotine dependence
CPT/HCPCS: 45380; 88305; J2704; J7120

== ENCOUNTER 2023-06-30 12:48 | Emergency (ER) | payer MEDICARE, SELFPAY ==
--- NOTE | ~2023-06-30 | XR_ITS ---
EXAMINATION: XR elbow LT min 3V DATE: 06/30/2023 13:24 INDICATION: Left elbow pain after fall TECHNIQUE: Two views of the left elbow were obtained. COMPARISON: None. FINDINGS: There is an elbow joint effusion. No definite fracture is identified. There is mild osteoar thritis of the elbow. Dorsal soft tissue swelling is seen near the olecranon. IMPRESSION: 1. Elbow joint effusion without identifiable osseous abnormality suggesting occult fracture. Consider CT for further evaluation. Reviewed, dictated and finalized at location L. ER IMPRESSION: 1. Elbow joint effusion without identifiable osseous abnormality suggesting occ ult fracture. Consider CT for further evaluation.
--- NOTE | ~2023-06-30 | CT_ITS ---
EXAMINATION:CT diagnostic chest wo con DATE: 06/30/2023 15:50 INDICATION: Pain in the sternum and left ribs. Fall. TECHNIQUE: Computed tomography (CT) of the chest was performed without intravenous contrast. Automate d exposure control and iterative reconstruction technique were employed. The dose-length product (DLP ) was 513.63 mGy-cm. COMPARISON: Chest CT 03/24/2023 FINDINGS: There is severe emphysema. There is mild scarring at the lung apices. There are nodules in the lungs with a lower lobe lobe predominance, left worse than right. There are patchy airspace opaci ties in left lower lobe. A calcified left lung nodule is consistent with old granulomatous disease. N o pleural effusion. The heart size is normal. There are coronary artery calcifications. No pericardia l effusion. There is a left chest wall pacer with leads in the right atrium and right ventricle. Ther e is mild mediastinal lymphadenopathy, likely reactive. There is a small sliding hiatal hernia. There is calcified atherosclerosis of the aorta and many of the other arteries. There is moderate thoracic spondylosis. There is an old left-sided rib defect that may be from old fracture or thoracotomy. The re is a nondisplaced fracture of the sternum. IMPRESSION: 1. Nondisplaced acute fracture of the sternum. 2. Chronic pneumonia with an inferior predominance, left worse than right, stable from 03/24/2023. 3. Severe emphysema. Reviewed, dictated and finalized at location E. EYBALL ASSISTANT COACH IMPRESSION: 1. Nondisplaced acute fracture of the sternum. 2. Chronic pneumonia with an inferior predominance, left worse than right, sta ble from 03/24/2023. 3. Severe emphysema.
--- NOTE | ~2023-06-30 | XR_ITS ---
EXAMINATION: XR shoulder LT min 2V INDICATION: Left shoulder pain TECHNIQUE: Four views of the left shoulder are submitted. COMPARISON: None FINDINGS: Normal alignment. No fracture. There is mild osteoarthritis of the glenohumeral and acromio clavicular joints. Soft tissues are unremarkable. A dual-lead cardiac pacemaker of the left chest wal l ends with leads in expected locations. IMPRESSION: 1. No acute osseous abnormality. Reviewed, dictated and finalized at location L. ARCH DAIRY FARM SUPERVISOR
--- NOTE | ~2023-06-30 | CT_ITS ---
EXAMINATION: CT facial & cervical spine wo DATE: 06/30/2023 13:48 INDICATION: Head injury TECHNIQUE: Computed tomography (CT) of the maxillofacial region and cervical spine was performed with out intravenous contrast. The dose-length product (DLP) was 527.35 mGy-cm. Automated exposure control and iterative reconstruction technique were employed. COMPARISON: None FINDINGS: MAXILLOFACIAL CT: No facial fracture is identified. There is near complete opacification of all paranasal sinuses. The globes and orbits are normal. There is left nasal soft tissue swelling. CERVICAL SPINE CT: There is anterior fusion of C2 and C3. There are 2 mm of retrolisthesis of C3 on C4. There is moderat e loss of intervertebral disc space at C3-4 and C5-6. The vertebral body heights are maintained. The odontoid process is intact. There is multilevel moderate facet and uncovertebral joint osteoarthritis . The prevertebral soft tissues are normal. There is moderate emphysema of the visualized lung apices . IMPRESSION: 1. No facial fracture identified. 2. Moderate cervical spondylosis without acute abnormality of the cervical spine. 3. Severe pansinusitis. Reviewed, dictated and finalized at location L. PING BUILDER IMPRESSION: 1. No facial fracture identified. 2. Moderate cervical spondylosis without acute abnormality of the cervical spin e. 3. Severe pansinusitis.
--- NOTE | ~2023-06-30 | XR_ITS ---
EXAMINATION: XR hand LT min 3V INDICATION: Left hand pain TECHNIQUE: Three views of the left hand are obtained. COMPARISON: None available FINDINGS: Bone alignment is normal. There is no acute fracture. There is marked dorsal soft tissue sw elling of the hand overlying the distal metacarpals. There is mild osteoarthritis involving multiple interphalangeal joints. There is an old ulnar styloid avulsion with nonunion. IMPRESSION: 1. Dorsal soft tissue swelling of the hand without underlying osseous abnormality identified. Reviewed, dictated and finalized at location L. TE MANAGER IMPRESSION: 1. Dorsal soft tissue swelling of the hand without underlying osseous abnormali ty identified.
--- NOTE | ~2023-06-30 | XR_ITS ---
EXAMINATION: XR hip LT 2V w AP pelvis INDICATION: Left hip pain TECHNIQUE: AP view the pelvis and two views of the left hip are obtained. COMPARISON: None available FINDINGS: Bone alignment is normal. There is no fracture. There are changes of bilateral hip arthropl asty. Orthopedic hardware is intact. Calcified atherosclerosis is noted. The bowel gas pattern is nor mal. There are changes of mesh ventral hernia repair. IMPRESSION: 1. No acute osseous abnormality. Reviewed, dictated and finalized at location L. NEERING AND DEVELOPMENT DIRECTOR
--- NOTE | ~2023-06-30 | CT_ITS ---
EXAMINATION: CT elbow LT wo con DATE: 06/30/2023 15:53 INDICATION: Posttraumatic left elbow joint effusion. Assess for occult fracture. TECHNIQUE: High resolution computed tomography (CT) of the left elbow was performed without intraveno us contrast. Additional sagittal and coronal reconstructions were performed. Automated exposure contr ol and iterative reconstruction technique were employed. The dose-length product was 855.96 mGy-cm. COMPARISON: Radiographs dated 07/10/2023 FINDINGS: Subtle nondisplaced transverse fracture at the neck of the proximal radius. No evident involvement of the proximal articular surface. No other fractures identified. Alignment remains normal. Small left elbow joint effusion with displacement of both the anterior and posterior fat pads. Mild osteoarthrit is at the ulnotrochlear and proximal radioulnar articulations. Soft tissues about the left elbow are otherwise unremarkable. Small sliding-type hiatal hernia. Cardiac pacemaker lead with distal tip cedric g the septum at the level of the tricuspid valve plane, unclear whether intraventricular or more like ly intra-atrial. IMPRESSION: 1. Nondisplaced extra-articular fracture at the neck of the proximal left radius small joint effusion . 2. Cardiac pacemaker lead tip which appears positioned along the septum near the level of the tricusp id valve plane, unclear whether intraventricular or more likely intra-atrial lead 3. Small sliding-type hiatal hernia. Reviewed, dictated and finalized at location A. G[employer] NEW PRODUCT IMPRESSION: 1. Nondisplaced extra-articular fracture at the neck of the proximal left radiu s small joint effusion. 2. Cardiac pacemaker lead tip which appears positioned along the septum near th e level of the tricuspid valve plane, unclear whether intraventricular or more likely intra-atrial lead 3. Small sliding-type hiatal hernia.
--- NOTE | ~2023-06-30 | CT_ITS ---
CT head without contrast Indication: Status post fall Technique: Serial scans were obtained through the brain without the administration of contrast. Dose reduction technique was used on this scan by utilizing automated exposure control and iterative recon struction technique. The dose-length product (DLP) was 756.67 mGy-cm. Findings: There is no evidence of intracranial hemorrhage, mass lesion, or acute infarct. The ventri cles and subarachnoid spaces are dilated, consistent with minimal atrophy. Low attenuation regions a re seen within the periventricular white matter bilaterally, likely representing changes from chronic microvascular ischemic disease. There is no evidence of edema, mass effect or midline shift. There is pansinusitis. Impression: No intracranial hemorrhage, mass, or acute infarct. Atrophy and chronic white matter changes, as above. Pansinusitis. Reviewed, dictated and finalized at [facility]. [employer] PRO[employer] REPRESENTATIVE Impression: No intracranial hemorrhage, mass, or acute infarct. Atrophy and chronic white matter changes, as above. Pansinusitis.
[2023-06-30 12:55] VITALS: BP 150/66; PULSE 75; RESP 20; TEMP 36.6; O2SAT 98
--- NOTE | 2023-06-30 14:48 | ECG_ITS ---
Measurements Intervals [place] Rate: 74 P: 42 AR: 162 QRS: -2 QRSD: 122 T: 12 QT: 385 QTc: 429 Interpretive Statements ATRIAL SENSE- ELECTRONIC VENTRICULAR PACEMAKER BASELINE ARTIFACT- I, II, III, AVR, AVL, AVF, V1-V6 NO FURTHER INTERPRETATION IS POSSIBLE ATYPICAL ECG COMPARED TO ECG 05/15/2022 13:20:03 HEART RATE HAS DECREASED Electronically Signed On 06-30-2023 15:17:13 ASSISTANT SALES DIRECTOR by Juan David George D.O.
--- NOTE | 2023-06-30 14:51 | ED.FALL ---
HPI - Fall General Chief Complaint: Fall <Usha Scott PA-C - Last Filed: 06/30/23 19:35> Stated Complaint: GLF with injuries <Usha Scott PA-C - Last Filed: 06/30/23 19:35> Time Seen by Provider: 06/30/23 13:35 <Usha Scott PA-C - Last Filed: 06/30/23 19:35> History of Present Illness HPI Narrative: 72-year-old male who is currently anticoagulated with Xarelto reports for evaluation after mechanical fall that occurred a few hours prior to arrival. Patient states he was walking in the parking lot when he caught his foot on a curb and fell to the ground. States he was carrying a prescription bottle in his left hand against his sternum and landed on his left hand and arm, face and chest. Patient is reporting with pain to his left shoulder, elbow and hand, as well as to his anterior chest wall where his prescription bottle lodged into his chest. States his tetanus is up-to-date. He did not lose consciousness, denies headache, vision changes, focal numbness or weakness. He also reports pain to his left hip and states he has a history of a total hip arthroplasty. He denies neck pain, back pain, abdominal pain, shortness of breath. <Usha Scott PA-C - Last Filed: 06/30/23 19:35> Related Data Home Medications: Home Medications Medication Instructions Recorded Confirmed albuterol sulfate 2.5 mg/3 mL 2.5 mg inhalation Q4-6H PRN SOB 03/03/21 06/14/23 (0.083 %) solution for nebulization tiotropium bromide 2.5 2 puff inhalation HS 03/03/21 06/14/23 mcg/actuation mist for inhalation (Spiriva Respimat) acetaminophen 500 mg tablet 500 mg PO Q6H PRN Moderate Pain 06/02/21 06/14/23 (Scale Score 5-6) polyethylene glycol 3350 17 gram 17 g PO DAILY PRN Constipation 07/17/21 06/14/23 oral powder packet (Miralax) fluticasone 500 mcg-salmeterol 50 1 inh inhalation Q12H 10/12/21 06/14/23 mcg/dose blistr powdr for inhalation (Wixela Inhub) pantoprazole 40 mg tablet,delayed 40 mg PO DAILY 01/11/22 06/14/23 release doxepin 25 mg capsule 25 mg PO QHS PRN Sleep 05/15/22 06/14/23 rivaroxaban 2.5 mg tablet (Xarelto) 2.5 mg PO BID 05/15/22 06/14/23 cetirizine 10 mg tablet (Zyrtec) 10 mg PO HS 07/12/22 06/14/23 multivitamin (Daily Multi-Vitamin 1 tablet PO DAILY 07/12/22 06/14/23 tablet) tamsulosin 0.4 mg capsule 0.8 mg PO HS 01/24/23 06/14/23 atorvastatin 80 mg tablet 80 mg PO DAILY 03/22/23 06/14/23 potassium chloride 10 mEq 10 meq PO 3XW 03/22/23 06/14/23 capsule,extended release carvedilol 25 mg tablet 25 mg PO TID 04/26/23 06/14/23 amlodipine 5 mg tablet 5 mg PO DAILY 06/07/23 06/14/23 aspirin 81 mg tablet,delayed 81 mg PO DAILY 06/07/23 06/14/23 release cilostazol 50 mg tablet 25 mg PO BID 06/07/23 06/14/23 guaifenesin 400 mg tablet (Mucus 400 mg PO BID 06/07/23 06/14/23 Relief) <Usha Scott PA-C - Last Filed: 06/30/23 19:35> Allergies/Adverse Reactions: Allergies Allergy/AdvReac Type Severity Reaction Status Date / Time No Known Allergies Allergy Verified 06/30/23 12:59 <Usha Scott PA-C - Last Filed: 06/30/23 19:35> Review of Systems Review of Systems: CONSTITUTIONAL: Denies fever, chills EYES: Denies visual changes, redness, or discharge. ENT: Denies rhinorrhea, congestion, sore throat, or otalgia. CARDIOVASCULAR: See HPI RESPIRATORY: Denies cough or dyspnea. GASTROINTESTINAL: Denies abdominal pain, nausea, vomiting, or diarrhea. GENITOURINARY: Denies dysuria or hematuria. SKIN: See HPI MUSCULOSKELETAL: See HPI NEUROLOGIC: Denies headache, numbness, dizziness, or weakness. PSYCHIATRIC: Denies anxiety or depression. <Usha Scott PA-C - Last Filed: 06/30/23 19:35> [facility] Past Medical History Medical History: Medical History Arthritis AV block Status post Medtronic pacemaker placement. Benign prostatic hyperplasia Chronic anemia Chronic anemia Chronic
[2023-06-30 15:02] VITALS: BP 150/66; PULSE 73; RESP 20; O2SAT 97
[2023-06-30] MEDS: HYDROcodone/acetaminophen (*CRX) 5-325 MG TABLET 1 TAB PO (15:02)
[2023-06-30 15:19] LABS: Basophils Percent Auto 0.4 % (0.2-1.2); Eosinophils Absolute Auto 0.4 K/mm3 (0-0.3); Eosinophils Percent Auto 4.7 % (0-4.4); Hemoglobin 10.2 g/dL (14.0-18.0); Immature Granulocyte Absolute 0.06 K/mm3 (0.00-0.031); Immature Granulocyte Percent A 0.8 % (0-0.5); Lymphocytes Absolute Auto 0.82 K/mm3 (0.9-3.2); Lymphocytes Percent Auto 10.3 % (18.3-44.2); Mean Corpuscular HGB Conc 28.3 g/dl (32-36); Mean Corpuscular Hemoglobin 24.1 pg (26-34); Mean Corpuscular Volume 85.1 fl (80-100); Mean Platelet Volume 9.3 fl (7.4-10.4); Monocytes Absolute Auto 0.6 K/mm3 (0.1-0.6); Monocytes Percent Auto 7.4 % (2.6-8.5); Neutrophils Absolute Auto 6.1 K/mm3 (1.3-6.7); Neutrophils Percent Auto 76.4 % (45.5-73.1); Platelet Count Result 217 k/mm3 (150-375); Red Blood Count 4.23 M/mm3 (4.6-6.20); White Blood Count 7.9 K/mm3 (4.5-10.0)
[2023-06-30 15:28] LABS: Alanine Aminotransferase 20 U/L (6-50); Alkaline Phosphatase 114 U/L (38-126); Anion Gap 7 mmol/L (8-16); Aspartate Amino Transferase 25 U/L (17-59); Bilirubin,Total 0.5 mg/dL (0.2-1.3); Blood Urea Nitrogen 26 mg/dL (9-20); Calcium 8.9 mg/dL (8.4-10.2); Carbon Dioxide 25 mmol/L (22-30); Chloride 107 mmol/L (98-107); Estimated CRCL calculation 28 ml/min; Estimated Glomerular Filt Rate 31; Glucose 96 mg/dL (65-110); Potassium 4.3 mmol/L (3.4-5.0); Sodium 139 mmol/L (137-145)
[2023-06-30 15:33] LABS: Hypochromasia 1+ (NORMAL); Ovalocytes 1+ (NORMAL); Platelet Estimate Adequate (Adequate); Schistocytes None Seen (NORMAL)
[2023-06-30 15:36] LABS: INR 1.2; Prothrombin Time 15.3 Seconds (11.1-14.7)
[2023-06-30 15:37] LABS: Partial Thromboplastin Time 40.6 SECONDS (22.3-36.8)
[2023-06-30 15:38] LABS: Troponin I < 0.012 ng/mL (0.000-0.034)
--- NOTE | 2023-06-30 15:39 | PC.NURSE ---
Pt to CT scan via stretcher at this time.
[2023-06-30 16:05] VITALS: BP 162/82; PULSE 75; RESP 76; O2SAT 96
[2023-06-30 17:12] VITALS: BP 170/75; PULSE 81; RESP 16; O2SAT 93
[2023-06-30 18:44] VITALS: PULSE 60; RESP 19; O2SAT 92
[2023-06-30 18:58] LABS: Troponin I < 0.012 ng/mL (0.000-0.034)
--- NOTE | 2023-06-30 19:25 | PC.NURSE ---
This RN took patient report from MARY Prasad. This RN assumed care of patient.
[2023-06-30] MEDS: HYDROmorphone HCL INJ (*CRX) 1 MG/ML SYR 0.5 MG IV PUSH (19:35)
[2023-06-30 19:51] VITALS: BP 139/84; PULSE 93; RESP 18; O2SAT 94
== END 2023-06-30 19:53 | disposition home or self-care (01) ==
PROVIDERS: Emergency Provider Physician Assistant; PCP Family Medicine
DX: S22.20XA Unspecified fracture of sternum, initial encounter for closed fracture (principal); S52.135A Nondisplaced fracture of neck of left radius, initial encounter for closed fracture; S60.222A Contusion of left hand, initial encounter; S61.412A Laceration without foreign body of left hand, initial encounter; J18.9 Pneumonia, unspecified organism; I13.0 Hypertensive heart and chronic kidney disease with heart failure and stage 1 through stage 4 chronic kidney disease, or unspecified chronic kidney disease; N18.30 Chronic kidney disease, stage 3 unspecified; I50.9 Heart failure, unspecified; I73.9 Peripheral vascular disease, unspecified; J43.9 Emphysema, unspecified; K21.9 Gastro-esophageal reflux disease without esophagitis; G47.33 Obstructive sleep apnea (adult) (pediatric); Z95.810 Presence of automatic (implantable) cardiac defibrillator; Z96.643 Presence of artificial hip joint, bilateral; Z95.5 Presence of coronary angioplasty implant and graft; Z87.891 Personal history of nicotine dependence; Z79.82 Long term (current) use of aspirin; Z79.01 Long term (current) use of anticoagulants; K44.9 Diaphragmatic hernia without obstruction or gangrene; J32.4 Chronic pansinusitis; M47.812 Spondylosis without myelopathy or radiculopathy, cervical region; W10.1XXA Fall (on)(from) sidewalk curb, initial encounter
CPT/HCPCS: 36415; 70450; 70486; 71250; 72125; 73030; 73080; 73130; 73200; 73502; 80053; 84484; 85025; 85610; 85730; 93005; 96374; 99284; A4565; A9270; J1170

== ENCOUNTER → 2023-07-07 10:31 | Outpatient (CLI) | payer MEDICARE, SELFPAY ==
--- NOTE | ~2023-07-07 | XR_ITS ---
Clinical Indication: Cough, shortness of breath PA and lateral views of the chest: Comparison: 01/26/2023 Findings: Possible mild central venous congestive change. No focal consolidation or pleural effusion. Cardiomediastinal silhouette is stable, with pacemaker device. Mild compression deformity of T11 no darrion. Impression: Possible mild central venous congestive change. Pacemaker device. Mild T11 compression deformity. Reviewed, dictated and finalized at location . WARE SYSTEMS ARCHITECT Impression: Possible mild central venous congestive change. Pacemaker device. Mild T11 compression deformity.
== END ==
PROVIDERS: PCP Family Medicine; Visit Provider Family Medicine
DX: R05.9 Cough, unspecified (principal); R06.02 Shortness of breath; Z95.0 Presence of cardiac pacemaker
CPT/HCPCS: 71046

== ENCOUNTER 2023-08-01 14:54 | Emergency (ER) | payer MEDICARE, SELFPAY ==
--- NOTE | ~2023-08-01 | XR_ITS ---
EXAMINATION: XR chest 2V DATE: 08/01/2023 15:22 INDICATION: Cough and shortness of breath TECHNIQUE: PA and lateral views of the chest are obtained. COMPARISON: 07/07/2023 FINDINGS: There are patchy airspace opacities of the lung bases. No pleural effusion or pneumothorax. The cardiomediastinal silhouette is normal. There is moderate thoracic spondylosis. A dual-lead card iac pacemaker of the left chest wall ends with leads in expected locations. IMPRESSION: 1. Patchy airspace opacities of the lung bases, consistent with atelectasis versus pneumonia. Reviewed, dictated and finalized at location B. R MACHINE IMPRESSION: 1. Patchy airspace opacities of the lung bases, consistent with atelectasis teresita sung pneumonia.
[2023-08-01 14:58] VITALS: BP 161/75; PULSE 82; RESP 20; TEMP 36.8; O2SAT 92
--- NOTE | 2023-08-01 15:06 | ED.GENADULT ---
HPI - General Adult General Chief complaint: Shortness of Breath/Dyspnea Stated complaint: Shortness of Breathe Time Seen by Provider: 08/01/23 15:07 Source: patient, RN notes reviewed and old records reviewed Mode of arrival: ambulatory Limitations: no limitations History of Present Illness HPI narrative: 72-year-old male with significant pulmonary history and cardiac history presents to the [facility] with complaints of shortness of breath since , 4 days. 07/07 was Augmentin and azithromycin for pneumonia States he tried calling his primary care provider was told that they will put in a chest x-ray, concerns for pneumonia Has not been using his albuterol on a regular basis. Used it once a day for the last 2 days Recently had a broken sternum. Not taking good deep breaths. Patient states that he normally only wears oxygen at night, oxygen level has been dropping below 90%. Currently on 2 L on exam Onset (ago): day(s) (4) Related Data Home Medications Medication Instructions Recorded Confirmed albuterol sulfate 2.5 mg/3 mL 2.5 mg inhalation Q4-6H PRN SOB 03/03/21 07/21/23 (0.083 %) solution for nebulization tiotropium bromide 2.5 2 puff inhalation HS 03/03/21 07/21/23 mcg/actuation mist for inhalation (Spiriva Respimat) acetaminophen 500 mg tablet 500 mg PO Q6H PRN Moderate Pain 06/02/21 07/21/23 (Scale Score 5-6) polyethylene glycol 3350 17 gram 17 g PO DAILY PRN Constipation 07/17/21 07/21/23 oral powder packet (Miralax) fluticasone 500 mcg-salmeterol 50 1 inh inhalation Q12H 10/12/21 07/21/23 mcg/dose blistr powdr for inhalation (Wixela Inhub) pantoprazole 40 mg tablet,delayed 40 mg PO DAILY 01/11/22 07/21/23 release doxepin 25 mg capsule 25 mg PO QHS PRN Sleep 05/15/22 07/21/23 cetirizine 10 mg tablet (Zyrtec) 10 mg PO HS 07/12/22 07/21/23 multivitamin (Daily Multi-Vitamin 1 tablet PO DAILY 07/12/22 07/21/23 tablet) tamsulosin 0.4 mg capsule 0.8 mg PO HS 01/24/23 07/21/23 atorvastatin 80 mg tablet 80 mg PO DAILY 03/22/23 07/21/23 potassium chloride 10 mEq 10 meq PO 3XW 03/22/23 07/21/23 capsule,extended release carvedilol 25 mg tablet 25 mg PO TID 04/26/23 07/21/23 amlodipine 5 mg tablet 5 mg PO DAILY 06/07/23 07/21/23 aspirin 81 mg tablet,delayed 81 mg PO DAILY 06/07/23 07/21/23 release cilostazol 50 mg tablet 25 mg PO BID 06/07/23 07/21/23 guaifenesin 400 mg tablet (Mucus 400 mg PO BID 06/07/23 07/21/23 Relief) clopidogrel 75 mg tablet 75 mg PO DAILY 07/21/23 07/21/23 Allergies Allergy/AdvReac Type Severity Reaction Status Date / Time oxycodone AdvReac Severe severe Verified 07/21/23 15:14 constipation Review of Systems Review of Systems: All systems reviewed & are unremarkable except as noted in HPI and below Constitutional: Constitutional: Reports no additional constitutional complaints Eyes: Eyes: Reports no additional eye complaints ENT: Reports system reviewed and no additional complaints, except as documented Cardiovascular: Cardiovascular: Reports no additional cardiovascular complaints, Denies chest pain and Denies dyspnea Respiratory: Respiratory: Reports as per HPI, Denies chest congestion, Reports cough and Reports dyspnea Gastrointestinal: Gastrointestinal: Reports no additional gastrointestinal complaints, Denies abdominal pain, Denies nausea and Denies vomiting Musculoskeletal: Musculoskeletal: Reports no additional musculoskeletal complaints Integumentary/Breasts: Skin/Breast: Reports system reviewed and no additional complaints, except as docu Neurologic: Reports system reviewed and no additional complaints, except as documented Psychiatric: Psychiatric: Reports no additional psychiatric complaints Allergic/Immunologic: Allergic/Immunologic: Reports no additional allergic/immunologic complaints PMFSH Past Medical History Medical History Arthritis AV block Status post Medtronic pacema
== END 2023-08-01 16:03 | disposition left against medical advice (07) ==
PROVIDERS: Emergency Provider Nurse Practitioner; PCP Family Medicine
DX: J18.9 Pneumonia, unspecified organism (principal); Z20.822 Contact with and (suspected) exposure to COVID-19; Z87.891 Personal history of nicotine dependence; M19.90 Unspecified osteoarthritis, unspecified site; N40.0 Benign prostatic hyperplasia without lower urinary tract symptoms; I13.0 Hypertensive heart and chronic kidney disease with heart failure and stage 1 through stage 4 chronic kidney disease, or unspecified chronic kidney disease; N18.30 Chronic kidney disease, stage 3 unspecified; I50.9 Heart failure, unspecified; J44.9 Chronic obstructive pulmonary disease, unspecified; K21.9 Gastro-esophageal reflux disease without esophagitis; G47.33 Obstructive sleep apnea (adult) (pediatric); I73.9 Peripheral vascular disease, unspecified; L40.9 Psoriasis, unspecified; D64.9 Anemia, unspecified; Z95.810 Presence of automatic (implantable) cardiac defibrillator; Z95.820 Peripheral vascular angioplasty status with implants and grafts
CPT/HCPCS: 71046; 87426; 87804; 99213; C9803; G0463

== ENCOUNTER 2023-10-15 05:17 | Inpatient (IN) | payer MEDICARE, SELFPAY ==
[2023-10-15] VITALS (22 sets, daily range): BP systolic 126–208; BP diastolic 60–100; PULSE 88–123; RESP 16–24; TEMP 36.2–37.3; O2SAT 91–100; BMI 28.5
--- NOTE | ~2023-10-15 | CT_ITS ---
EXAMINATION: CT abdomen pelvis wo con DATE: 10/15/2023 07:31 INDICATION: Urinary retention with clots. TECHNIQUE: Computed tomography (CT) of the abdomen and pelvis was performed without intravenous contr ast. The dose-length product was 545.08 mGy-cm. Automated exposure control and iterative reconstructi on technique were employed. COMPARISON: CT dated 02/01/2013. FINDINGS: There is left lower lobe bronchiectasis. There are coarse interstitial infiltrates of the r ight mid and left lower lung, suspicious for pneumonia. There is more focal consolidation in the left lower lobe. There is left lower pleural thickening. There is a left lower lobe nodule. There is more focal consolidation in the left lower lung. The liver, spleen, pancreas, adrenal glands are unremarkable. There is nonobstructing right nephrolit hiasis. There are prominent extrarenal pelvis bilaterally. There are hyperdense cysts of both kidneys . There is diffuse atherosclerosis. There is ectasia of the upper abdominal aorta with infrarenal abd ominal aortic aneurysm measuring up to 3.5 cm. Status post ventral abdominal wall hernia repair. Gall bladder is present. Nonobstructive bowel gas pattern. [place] catheter present in the bladder which is distended. There are multiple areas of heterogeneous soft tissue within the bladder lumen, likely blo od clots cleared. There is dolichoectasia of the common iliac arteries bilaterally. There are bilater al hip arthroplasties. IMPRESSION: 1. Distended bladder containing heterogeneous intraluminal soft tissue, likely blood clots. Bladder t umor not excluded. 2: Increasing consolidation of the right mid and left lower lung, suspicious for pneumonia. There is associated bronchiectasis in the left lower lobe with left lower lobe nodule measuring 9 mm. Recommen d correlation with three-month low dose CT chest or pet/CT. 3: Extensive atherosclerosis of the aorta with infrarenal abdominal aortic aneurysm measuring 3.5 cm with mild aneurysmal dilation of the common iliac arteries. Reviewed, dictated and finalized at location A. REPAIRER IMPRESSION: 1. Distended bladder containing heterogeneous intraluminal soft tissue, likely blood clots. Bladder tumor not excluded. 2: Increasing consolidation of the right mid and left lower lung, suspicious fo r pneumonia. There is associated bronchiectasis in the left lower lobe with lef t lower lobe nodule measuring 9 mm. Recommend correlation with three-month low dose CT chest or pet/CT. 3: Extensive atherosclerosis of the aorta with infrarenal abdominal aortic aneu rysm measuring 3.5 cm with mild aneurysmal dilation of the common iliac arterie s.
--- NOTE | ~2023-10-15 | XR_ITS ---
XR chest 1V portable 10/16/2023 05:34 Indication: Pneumonia Procedure: AP portable chest Comparison: Comparison to multiple prior studies sequentially, with oldest reviewed study dated 02/2023. Findings: There is patchy bilateral airspace disease which appears to be superimposed on chronic fibr osis/scarring. Pacemaker leads are stable. Heart size normal. Small left pleural effusion versus pleu ral thickening. No pneumothorax. Impression: 1: Mildly increased patchy bilateral airspace disease, likely superimposed on chronic interstitial fi brosis/scarring. Reviewed, dictated and finalized at location A. TIC STRENGTH INSPECTOR Impression: 1: Mildly increased patchy bilateral airspace disease, likely superimposed on c hronic interstitial fibrosis/scarring.
--- NOTE | 2023-10-15 06:06 | ED.GENADULT ---
HPI - General Adult General Chief complaint: Urogenital-Male Stated complaint: blood in urine, decreased output Time Seen by Provider: 10/15/23 06:02 History of Present Illness HPI narrative: this is a 73-year-old male presenting with urinary retention. Patient states that around 10:30 last night he lost the ability to urinate. Now he has suprapubic pain and fullness. Related Data Home Medications Medication Instructions Recorded Confirmed albuterol sulfate 2.5 mg/3 mL 2.5 mg inhalation Q4-6H PRN SOB 03/03/21 09/15/23 (0.083 %) solution for nebulization tiotropium bromide 2.5 2 puff inhalation HS 03/03/21 09/15/23 mcg/actuation mist for inhalation (Spiriva Respimat) acetaminophen 500 mg tablet 500 mg PO Q6H PRN Moderate Pain 06/02/21 09/15/23 (Scale Score 5-6) polyethylene glycol 3350 17 gram 17 g PO DAILY PRN Constipation 07/17/21 09/15/23 oral powder packet (Miralax) fluticasone 500 mcg-salmeterol 50 1 inh inhalation Q12H 10/12/21 09/15/23 mcg/dose blistr powdr for inhalation (Wixela Inhub) pantoprazole 40 mg tablet,delayed 40 mg PO DAILY 01/11/22 09/15/23 release doxepin 25 mg capsule 25 mg PO QHS PRN Sleep 05/15/22 09/15/23 cetirizine 10 mg tablet (Zyrtec) 10 mg PO HS 07/12/22 09/15/23 multivitamin (Daily Multi-Vitamin 1 tablet PO DAILY 07/12/22 09/15/23 tablet) tamsulosin 0.4 mg capsule 0.8 mg PO HS 01/24/23 09/15/23 atorvastatin 80 mg tablet 80 mg PO DAILY 03/22/23 09/15/23 potassium chloride 10 mEq 10 meq PO 3XW 03/22/23 09/15/23 capsule,extended release amlodipine 5 mg tablet 5 mg PO DAILY 06/07/23 09/15/23 aspirin 81 mg tablet,delayed 81 mg PO DAILY 06/07/23 09/15/23 release guaifenesin 400 mg tablet (Mucus 400 mg PO BID 06/07/23 09/15/23 Relief) clopidogrel 75 mg tablet 75 mg PO DAILY 07/21/23 09/15/23 ciprofloxacin HCl 500 mg tablet mg 10/15/23 Allergies Allergy/AdvReac Type Severity Reaction Status Date / Time doxycycline Allergy Unknown Nausea and Verified 10/15/23 05:24 Vomiting oxycodone AdvReac Severe severe Verified 10/15/23 05:[address] [facility] Past Medical History Medical History Arthritis AV block Status post Medtronic pacemaker placement. Benign prostatic hyperplasia Chronic anemia Chronic anemia Chronic kidney disease, stage 3 Colon cancer screening COPD with emphysema COVID-19 (04/2020) Eczema Empyema of left pleural space (05/2021) Pleural fluid grew out strep intermedius and staph hominis. Status post thoracotomy with decortication. Femoral artery stenosis, left Gastroesophageal reflux disease Heart failure with preserved ejection fraction Echocardiogram in November 2021 showed normal LV size and function with an EF measured at 66% and impaired diastolic relaxation. Hypertension Impacted cerumen of right ear Obstructive sleep apnea On 2 L nasal cannula at nighttime. Peripheral vascular disease Status post right carotid endarterectomy. Status post left lower extremity stent. Psoriasis Urethral stricture Vertigo Surgical History Surgical History AICD (automatic cardioverter/defibrillator) present History of dilation of urethra History of herniorrhaphy History of hip replacement Bilaterally with revision History of right-sided carotid endarterectomy History of thoracotomy (05/2021) Left thoracotomy with decortication for empyema. History of tonsillectomy Status post peripheral artery angioplasty with insertion of stent Left lower extremity. Status post placement of cardiac pacemaker (06/2020) Family History Family History Father Hypertension Heart disease Cerebrovascular accident Mother Asthma Diabetes mellitus Hypertension Sibling Hypertension Social History Social History Social History: The patient
[2023-10-15] MEDS: HYDROmorphone HCL INJ (*CRX) 1 MG/ML SYR 0.5 MG IV PUSH (06:11)
[2023-10-15 06:34] LABS: Appearance Urine Cloudy (Clear); Bacteria Urine None Seen /hpf; Bilirubin Urine Negative (Negative); Blood Urine 2+ (Negative); Color Urine Yellow (Yellow); Glucose Urine UA Negative (Negative); Ketones Urine Negative (Negative); Leukocyte Esterase Ur Trace LEU/UL (Negative); Need Manual Microscopic Reviewed; Nitrate Urine Negative (Negative); Non Pathogenic Casts 0-2; Protein Urine 4+ mg/dL (Negative); Specific Grav Ur 1.022 (1.001-1.035); Squamous Epithelial Cell Urine None seen /hpf (Few); Urobilinogen Urine 0.2 mg/dL (<2.0); WBC Urine >100 /hpf
[2023-10-15 06:37] LABS: Add Urine Microscopic? YES; RBC Urine >100 /hpf (0-2)
[2023-10-15] MEDS: HYDROmorphone HCL INJ (*CRX) 1 MG/ML SYR IV PUSH (07:40)
[2023-10-15 08:07] LABS: Basophils Percent Auto 0.3 % (0.2-1.2); Eosinophils Absolute Auto 0.4 K/mm3 (0-0.3); Hematocrit 34.4 % (42.0-52.0); Hemoglobin 10.3 g/dL (14.0-18.0); Immature Granulocyte Absolute 0.03 K/mm3 (0.00-0.031); Immature Granulocyte Percent A 0.3 % (0-0.5); Lymphocytes Percent Auto 9.1 % (18.3-44.2); Mean Corpuscular HGB Conc 29.9 g/dl (32-36); Mean Corpuscular Hemoglobin 26.1 pg (26-34); Mean Corpuscular Volume 87.3 fl (80-100); Mean Platelet Volume 8.9 fl (7.4-10.4); Monocytes Absolute Auto 0.8 K/mm3 (0.1-0.6); Monocytes Percent Auto 7.4 % (2.6-8.5); Neutrophils Absolute Auto 8.7 K/mm3 (1.3-6.7); Neutrophils Percent Auto 78.9 % (45.5-73.1); Platelet Count Result 359 k/mm3 (150-375); Red Blood Count 3.94 M/mm3 (4.6-6.20); Red Cell Distribution Width 17.9 % (11.5-14.5)
[2023-10-15 08:18] LABS: INR 1.1; Prothrombin Time 14.4 Seconds (11.1-14.7)
[2023-10-15 08:19] LABS: Partial Thromboplastin Time 40.6 SECONDS (22.3-36.8)
[2023-10-15 08:22] LABS: Platelet Estimate Adequate (Adequate); Poikilocytosis 1+ (NORMAL)
[2023-10-15 08:23] LABS: Anisocytosis 1+ (NORMAL); Ovalocytes 1+ (NORMAL); Schistocytes None Seen (NORMAL)
[2023-10-15 08:29] LABS: Alanine Aminotransferase 13 U/L (6-50); Albumin Level 3.6 g/dL (3.5-5.1); Alkaline Phosphatase 159 U/L (38-126); Anion Gap 8 mmol/L (8-16); Aspartate Amino Transferase 32 U/L (17-59); Bilirubin,Total 0.5 mg/dL (0.2-1.3); Blood Urea Nitrogen 24 mg/dL (9-20); Calcium 8.8 mg/dL (8.4-10.2); Carbon Dioxide 24 mmol/L (22-30); Chloride 105 mmol/L (98-107); Estimated CRCL calculation 35 ml/min; Estimated Glomerular Filt Rate 43; Glucose 133 mg/dL (65-110); Potassium 4.3 mmol/L (3.4-5.0); Sodium 137 mmol/L (137-145)
--- NOTE | 2023-10-15 09:21 | WPDURCON ---
Assessment and Plan Assessment and plan (1) Acute urinary retention: Code(s): R33.8 - Other retention of urine Status: Acute Assessment and Plan: 73 yo male with hx of urethral stricture diease with GH with clot retention on ASA and plavix. - he continues to clot off CBI last ate last pm plan for cystoscopy with clot evacuation and fulguration of bleeding. risks , benefits, alternatives, nature of procedure and complications reviewed with pt and sister risks including but not limited to bleeding, ( need for transfusion), infection/sepsis, damage to the urinary tract, need for additional procedures pending intraop findings, risk of bladder damage, anesthesia and positioning complications of [place], stroke disability reviewed. he voiced understanding all ? answered (2) Gross hematuria: Code(s): R31.0 - Gross hematuria Status: Acute Urology Consult Note HPI Date Seen: 10/15/23 Requesting Physician: Shelia Swanson MD Primary Care Provider: Ranulfo Romo DO Consult Narrative Narrative: Freddy Hill is a 73 year old male who presented to ER with 2 day hx of gross hematuria. Pt is a patient of my colleague Dr Mcpherson, who has a hx of uretrhal stricture disease s/p dilation. Patient was treated for UTI by WIND TURBINE DESIGN ENGINEER a few days ago at [facility]. Patient performs self cath to keep stricture patent. He is on ASA and plavix for PVD. In ER [address] kumari was placed with grossly bloody urine with clots. he is clotting off cbi. He has mild SP pain. CT shows large clot burden in bladder. Deneis fevers chills. Last ate supper last pm. Review of Systems Constitutional: Constitutional: Denies body ache(s) and Denies chills Eyes: Eyes: Reports no additional eye complaints and Denies blurry vision ENT: Reports Normal hearing present Cardiovascular: Cardiovascular: Reports no additional cardiovascular complaints and Denies chest pain Respiratory: Respiratory: Denies cough and Denies dyspnea Gastrointestinal: Gastrointestinal: Reports as per HPI Genitourinary: Genitourinary: Reports no additional male genitourinary complaints and Reports as per HPI Musculoskeletal: Musculoskeletal: Reports no additional musculoskeletal complaints Integumentary/Breasts: Skin/Breast: Reports system reviewed and no additional complaints, except as docu Neurologic: Reports system reviewed and no additional complaints, except as documented [facility] Past Medical History Medical History Arthritis AV block Status post Medtronic pacemaker placement. Benign prostatic hyperplasia Chronic anemia Chronic anemia Chronic kidney disease, stage 3 Colon cancer screening COPD with emphysema COVID-19 (04/2020) Eczema Empyema of left pleural space (05/2021) Pleural fluid grew out strep intermedius and staph hominis. Status post thoracotomy with decortication. Femoral artery stenosis, left Gastroesophageal reflux disease Heart failure with preserved ejection fraction Echocardiogram in November 2021 showed normal LV size and function with an EF measured at 66% and impaired diastolic relaxation. Hypertension Impacted cerumen of right ear Obstructive sleep apnea On 2 L nasal cannula at nighttime. Peripheral vascular disease Status post right carotid endarterectomy. Status post left lower extremity stent. Psoriasis Urethral stricture Vertigo Surgical History Surgical History AICD (automatic cardioverter/defibrillator) present History of dilation of urethra History of herniorrhaphy History of hip replacement Bilaterally with revision History of right-sided carotid endarterectomy History of thoracotomy (05/2021) Left thoracotomy with decortication for empyema. History of tonsillectomy Status post peripheral artery angioplasty with insertion of stent Left lower extremity. Status post placement of cardiac pacemaker (06/23
--- NOTE | 2023-10-15 09:32 | WPDHPUPDATE1 ---
History and Physical Update Update Date/Time: 10/15/23 09:32 History and Physical has been reviewed, including an updated exam of the patient. There are NO changes in the patient's condition. Risks, benefits, and alternatives have been discussed and questions answered. Patient agrees to proceed with procedure.
--- NOTE | 2023-10-15 10:02 | WPDANESEPPF ---
Anes - Initial Pre Proc Eval Procedure: Operation Date: 10/15/23 10:00 Proposed Procedures p Cystoscopy, Evacuation Bladder Clots - Genaro Rowe MD Date/Time: 10/15/23 10:02 Surgeon: Shelia Swanson MD Pre Op Diagnosis: Urinary Retention Patient Data Age: 73 Gender: M Height: 1.7 m Weight: 77 kg Last Vital Signs Temp 36.6 C 10/15/23 05:18 Pulse 114 H 10/15/23 09:02 Resp 18 10/15/23 09:02 BP 174/82 H 10/15/23 09:02 Pulse Ox 97 10/15/23 09:02 Allergies Allergy/AdvReac Type Severity Reaction Status Date / Time doxycycline Allergy Unknown Nausea and Verified 10/15/23 05:24 Vomiting oxycodone AdvReac Severe severe Verified 10/15/23 05:24 constipation Home Medications Medication Instructions Recorded Confirmed Type albuterol sulfate 2.5 mg/3 mL 2.5 mg inhalation Q4-6H PRN SOB 03/03/21 09/15/23 History (0.083 %) solution for nebulization tiotropium bromide 2.5 2 puff inhalation HS 03/03/21 09/15/23 History mcg/actuation mist for inhalation (Spiriva Respimat) acetaminophen 500 mg tablet 500 mg PO Q6H PRN Moderate Pain 06/02/21 09/15/23 History (Scale Score 5-6) polyethylene glycol 3350 17 gram 17 g PO DAILY PRN Constipation 07/17/21 09/15/23 History oral powder packet (Miralax) fluticasone 500 mcg-salmeterol 50 1 inh inhalation Q12H 10/12/21 09/15/23 History mcg/dose blistr powdr for inhalation (Wixela Inhub) pantoprazole 40 mg tablet,delayed 40 mg PO DAILY 01/11/22 09/15/23 History release doxepin 25 mg capsule 25 mg PO QHS PRN Sleep 05/15/22 09/15/23 History cetirizine 10 mg tablet (Zyrtec) 10 mg PO HS 07/12/22 09/15/23 History multivitamin (Daily Multi-Vitamin 1 tablet PO DAILY 07/12/22 09/15/23 History tablet) dupilumab 300 mg/2 mL subcutaneous 300 mg (2 mL) subcut .COMPLEX #4 mL 11/25/22 09/15/23 Rx syringe (DotAlignixcitiservi) gabapentin 300 mg capsule 300 mg PO HS PRN Pain #90 caps 01/20/23 09/15/23 Rx tamsulosin 0.4 mg capsule 0.8 mg PO HS 01/24/23 09/15/23 History atorvastatin 80 mg tablet 80 mg PO DAILY 03/22/23 09/15/23 History potassium chloride 10 mEq 10 meq PO 3XW 03/22/23 09/15/23 History capsule,extended release amlodipine 5 mg tablet 5 mg PO DAILY 06/07/23 09/15/23 History aspirin 81 mg tablet,delayed 81 mg PO DAILY 06/07/23 09/15/23 History release guaifenesin 400 mg tablet (Mucus 400 mg PO BID 06/07/23 09/15/23 History Relief) lactulose 20 gram/30 mL oral 30 g (45 mL) PO ONCE #1,200 mL 07/07/23 09/15/23 Rx solution clopidogrel 75 mg tablet 75 mg PO DAILY 07/21/23 09/15/23 History triamcinolone acetonide 0.1 % 1 applic topical PRN PRN Rash #80 09/01/23 09/15/23 Rx topical ointment grams carvedilol 25 mg tablet See Rx Instructions .Route 09/08/23 09/15/23 Rx .COMPLEX #180 tabs tramadol 50 mg tablet 50 mg PO Q6H PRN Pain #120 tabs 09/09/23 09/15/23 Rx furosemide 40 mg tablet 40 mg PO DAILY #90 tabs 10/03/23 Rx ciprofloxacin HCl 500 mg tablet mg 10/15/23 History Laboratory Tests 10/15/23 10/15/23 05:44 07:58 WBC 11.0 H K/mm3 (4.5-10.0) RBC 3.94 L M/mm3 (4.6-6.20) Hgb 10.3 L g/dL (14.0-18.0) Hct 34.4 L % (42.0-52.0) MCV 87.3 fl (80-100) MCH 26.1 pg (26-34) MCHC 29.9 L g/dl (32-36) RDW 17.9 H % (11.5-14.5) Plt Count 359 D k/mm3 (150-375) MPV 8.9 fl (7.4-10.4) Immature Gran % (Auto) 0.3 % (0-0.5) Neut % (Auto) 78.9 H % (45.5-73.1) Lymph % (Auto) 9.1 L % (18.3-44.2) [place] % (Auto) 7.4 % (2.6-8.5) Eos % (Auto) 4.0 % (0-4.4) Baso % (Auto) 0.3 % (0.2-1.2) Lymph # (Auto) 1.00 K/mm3 (0.9-3.2) [place] # (Auto) 0.8 H K/mm3 (0.1-0.6) Eos # (Auto) 0.4 H K/mm3 (0-0.3) Baso # (Auto) 0.0 K/mm3 (0.0-0.1) Abs Immat Gran (auto) 0.03 K/mm3 (0.00-0.031) Absolute Neuts (auto) 8.7 H K/mm3 (1.3-6.7) Absolute Nucleated RBC 0.0 K/mm
[2023-10-15] MEDS: LACTATED RINGERS 1,000 ML 30 ML IV CONT ×2 (10:07→11:20)
[2023-10-15] MEDS: ceFAZolin SODIUM 1 GM VIAL 2 GM IV PUSH (10:17)
[2023-10-15] MEDS: LIDOCAINE HCL 2% GEL UROJET 10 ML PKG MUCOUS MEM (10:18)
--- NOTE | 2023-10-15 11:17 | P.OP_ITS ---
Procedure Note - Detailed Date of Procedure 10/15/23 Pre-op Diagnosis Urinary Retention, gross hematuria Post-op Diagnosis Same Procedure Performed cystoscopy , urethral dilation, clot evacuation and kumari placement Surgeon Genaro Rowe MD Anesthesia General Indications clot retention, gross hematuria Findings large amount of clot in the bladder , cystitis, mucosal bleeding Description of Procedure Pateint was brought back to the operating room and given general anesthesia via LMA. Patient was prepped and draped in standard fashion in the dorsal lithotomy position with Betadine scrub. Care was taken to pad all bony prominences, and not hyperflex or hyperextend any extremity. He received 2gram IV ancef. After appropriate timeout and appropriate patient identifiers were uses a 22 Fr cystoscopy was inserted, he has a bulbous stricture which was able to be passed by the scope. on entrance to the bladder a large amount of clot was encountered, with use of miky syrine this was evacuacted. 300 cc of clot was evacuated. There was active bleeding from the lateral corea. This was cauterized with bugbe. The bladder was irrigated and no residual clot was seen. there was mild diffuse venous oozing from anticoagulation and cystitis. Ii attempted to placed [address] kumari it would not pass his spongiofibrosis in his bulbous urthtal, I paced a sensor wire and with the use of dilators over the wire I dilated the urethra up to 26 Fr, I tried to placed the [place] tip [address] over the wire, it would not pass. It was getting hung up on the spongio fibrosis, I ended placing a [address] He was placed on cbi with 0.9 saline draining clear pink. He will be admitted to the floor for post op monitoring. Anticoagulation will need to be held given ongoing significant hemorrhage. Pathology None sent Complications No immediate complications Condition Stable Disposition PACU
--- NOTE | 2023-10-15 12:44 | ADMGEN ---
This patient, Freddy Hill, was admitted to Medical Room 247-. Patient/family oriented to hospital policies and general routines including ID bracelet, bed and alarms, visiting hours, pain management, procedures, bathroom and other care routines, personal items, smoking policy, room service/diet, and visiting hours. Information on how to activate the Rapid Response Team has been discussed. Patient/Family are encouraged to report perceived risks to care and to ask questions if they do not understand what they are told or what they should do.
[2023-10-15 12:54] LABS: Basophils Percent Auto 0.2 % (0.2-1.2); Eosinophils Percent Auto 0.1 % (0-4.4); Hemoglobin 9.3 g/dL (14.0-18.0); Immature Granulocyte Absolute 0.04 K/mm3 (0.00-0.031); Immature Granulocyte Percent A 0.3 % (0-0.5); Lymphocytes Absolute Auto 0.33 K/mm3 (0.9-3.2); Lymphocytes Percent Auto 2.2 % (18.3-44.2); Mean Corpuscular HGB Conc 29.1 g/dl (32-36); Mean Corpuscular Hemoglobin 25.8 pg (26-34); Mean Corpuscular Volume 88.9 fl (80-100); Mean Platelet Volume 8.9 fl (7.4-10.4); Monocytes Absolute Auto 0.3 K/mm3 (0.1-0.6); Monocytes Percent Auto 1.8 % (2.6-8.5); Neutrophils Absolute Auto 14.4 K/mm3 (1.3-6.7); Neutrophils Percent Auto 95.4 % (45.5-73.1); Platelet Count Result 307 k/mm3 (150-375); Red Cell Distribution Width 17.8 % (11.5-14.5); White Blood Count 15.1 K/mm3 (4.5-10.0)
[2023-10-15 13:29] LABS: Anisocytosis 1+ (NORMAL); Platelet Estimate Adequate (Adequate)
[2023-10-15 13:30] LABS: Ovalocytes 1+ (NORMAL); Schistocytes None Seen (NORMAL)
--- NOTE | 2023-10-15 14:46 | PM.IMHP ---
H&P: HPI History of Present Illness Date/Time: 10/15/23 14:46 Chief Complaint: Hematuria Narrative: A 73-year-old male presented with urinary retention with suprapubic pain and fullness inability to pee and having blood in his urine. On ED evaluation he was tender in suprapubic region [place] catheter was placed with return of small amount of bright red urine. Point of care ultrasound showed multiple large clots in the patient's bladder. Urology has been consulted and underwent cystoscopy urethral dilation clot evacuation and London placement. He has been placed on CBI has been admitted for postop monitoring. Anticoagulation has been on hold. He was recently treated for UTI. He is otherwise feeling well postoperatively when seen and denies any new complaints Review of Systems Review of Systems: - CONSTITUTIONAL: Denies weight loss, fever and chills. - HEENT: Denies changes in vision and hearing - RESPIRATORY: Denies SOB and cough. - CV: Denies palpitations and CP. - GI: Denies abdominal pain, nausea, vomiting and diarrhea. - : See HPI - MSK: Denies myalgia and joint pain. - SKIN: Denies rash and pruritus. - NEUROLOGICAL: Denies headache and syncope. - PSYCHIATRIC: Denies recent changes in mood. Denies anxiety and depression. [facility] Past Medical History Medical History Arthritis AV block Status post Medtronic pacemaker placement. Benign prostatic hyperplasia Chronic anemia Chronic anemia Chronic kidney disease, stage 3 Colon cancer screening COPD with emphysema COVID-19 (04/2020) Eczema Empyema of left pleural space (05/2021) Pleural fluid grew out strep intermedius and staph hominis. Status post thoracotomy with decortication. Femoral artery stenosis, left Gastroesophageal reflux disease Heart failure with preserved ejection fraction Echocardiogram in November 2021 showed normal LV size and function with an EF measured at 66% and impaired diastolic relaxation. Hypertension Impacted cerumen of right ear Obstructive sleep apnea On 2 L nasal cannula at nighttime. Peripheral vascular disease Status post right carotid endarterectomy. Status post left lower extremity stent. Psoriasis Urethral stricture Vertigo Surgical History Surgical History (Updated 10/15/23 @ 10:03 by Genaro Alfred MD) History of dilation of urethra History of herniorrhaphy History of hip replacement Bilaterally with revision History of right-sided carotid endarterectomy History of thoracotomy (05/2021) Left thoracotomy with decortication for empyema. History of tonsillectomy Status post peripheral artery angioplasty with insertion of stent Left lower extremity. Status post placement of cardiac pacemaker (06/2020) Family History Family History Father Hypertension Heart disease Cerebrovascular accident Mother Asthma Diabetes mellitus Hypertension Sibling Hypertension Social History Social History Social History: The patient currently lives in [place] with his sister. He is and has 3 children and moved to the area from [place], [place] within the last year. 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 Former smoker (2 packs a day for 40 years), quit in 2009. No alcohol or illicit substance abuse. He designates his sister Michelle Schroeder as his surrogate decision maker and he wishes to be a full code. Caffeine-daily Smoking packs per day: 2 Smoking cigarettes per day: 40.0 Years smoked: 40 Smoking pack-years: 80.00 Smoking status: Former smoker Tobacco type: cigarettes Smoking end date: 08/22/09 Alcohol intake: never Alcohol use details: rarely Substance use: never Substance use type: does not use Do You Feel Safe in your Home?: Yes Lack of Transportation: No Lack of Food: Never True Current Housing: I Have Housing Concern
[2023-10-15] MEDS: carvediloL 25 MG TABLET PO (20:08)
[2023-10-15] MEDS: amLODIPine BESYLATE 5 MG TABLET PO (20:09)
[2023-10-15] MEDS: LORATADINE 10 MG TABLET PO (20:09)
[2023-10-15] MEDS: TAMSULOSIN HCL 0.4 MG CAPSULE 0.8 MG PO (20:09)
[2023-10-15] MEDS: ATORVASTATIN 40 MG TABLET 80 MG PO (20:09)
[2023-10-15] MEDS: cilostazoL 50 MG TABLET PO (20:12)
[2023-10-15] MEDS: FLUTICASONE/SALMETEROL 230-21 MCG INHALER 1 PUFF 2 PUFF INHALATION (20:22)
[2023-10-16] VITALS (8 sets, daily range): BP systolic 142–165; BP diastolic 64–68; PULSE 81–100; RESP 14–17; TEMP 36.4–37.6; O2SAT 94–100
[2023-10-16] MEDS: GABAPENTIN 300 MG CAPSULE PO ×2 (04:00→08:50)
[2023-10-16] MEDS: traMADol HCL (*CRX) 50 MG TABLET PO ×3 (05:16→20:23)
[2023-10-16 05:32] LABS: Hemoglobin 7.9 g/dL (14.0-18.0); Immature Granulocyte Absolute 0.05 K/mm3 (0.00-0.031); Immature Granulocyte Percent A 0.5 % (0-0.5); Lymphocytes Absolute Auto 0.72 K/mm3 (0.9-3.2); Lymphocytes Percent Auto 6.6 % (18.3-44.2); Mean Corpuscular HGB Conc 29.3 g/dl (32-36); Mean Corpuscular Hemoglobin 25.7 pg (26-34); Mean Corpuscular Volume 87.9 fl (80-100); Mean Platelet Volume 8.9 fl (7.4-10.4); Monocytes Absolute Auto 0.8 K/mm3 (0.1-0.6); Monocytes Percent Auto 7.7 % (2.6-8.5); Neutrophils Absolute Auto 9.3 K/mm3 (1.3-6.7); Neutrophils Percent Auto 85.2 % (45.5-73.1); Platelet Count Result 270 k/mm3 (150-375); Red Blood Count 3.07 M/mm3 (4.6-6.20); Red Cell Distribution Width 17.8 % (11.5-14.5); White Blood Count 10.9 K/mm3 (4.5-10.0)
[2023-10-16 05:52] LABS: Alanine Aminotransferase 11 U/L (6-50); Albumin Level 2.8 g/dL (3.5-5.1); Alkaline Phosphatase 90 U/L (38-126); Anion Gap 0 mmol/L (8-16); Aspartate Amino Transferase 24 U/L (17-59); Bilirubin,Total 0.3 mg/dL (0.2-1.3); Blood Urea Nitrogen 21 mg/dL (9-20); Calcium 8.2 mg/dL (8.4-10.2); Carbon Dioxide 30 mmol/L (22-30); Chloride 107 mmol/L (98-107); Estimated CRCL calculation 38 ml/min; Estimated Glomerular Filt Rate 46; Glucose 107 mg/dL (65-110); Potassium 4.6 mmol/L (3.4-5.0); Sodium 137 mmol/L (137-145)
--- NOTE | 2023-10-16 08:43 | WPDUROPN2 ---
Progress Note: A&P Assessment and Plan (1) Gross hematuria: Code(s): R31.0 - Gross hematuria Status: Acute Assessment and Plan: POD#1 s/p cysto with clot evacuation and fulgeration of bleeding, -doing well urine clear titrate cbi down. hold ASA and plavix -monitor serial HGB, hgb drop expected given acute blood loss anemia. transfuse as indicated per primary team (2) Acute urinary retention: Code(s): R33.8 - Other retention of urine Status: Acute Plan POD#1 s/p cysto with clot evacuation and fulgeration of bleeding, -doing well urine clear titrate cbi down. hold ASA and plavix -monitor serial HGB, hgb drop expected given acute blood loss anemia. transfuse as indicated per primary team Subjective Subjective Date/Time Seen: 10/16/23 08:43 Interval history: NAEO. feels well, no pain tolerating diet. urine tap water clear on slow drip cbi Review of Systems Constitutional: Constitutional: Reports no additional constitutional complaints, Denies body ache(s) and Denies chills Eyes: Eyes: Reports as per HPI and Reports no additional eye complaints ENT: Reports system reviewed and no additional complaints, except as documented Respiratory: Respiratory: Denies dyspnea Gastrointestinal: Gastrointestinal: Reports as per HPI and Denies abdominal pain Genitourinary: Genitourinary: Reports no additional male genitourinary complaints and Reports as per HPI Integumentary/Breasts: Skin/Breast: Reports system reviewed and no additional complaints, except as docu Neurologic: Reports system reviewed and no additional complaints, except as documented Exam Const: General: comfortable and no acute distress HENMT: Mouth: Yes moist mucous membranes Eyes: Sclera: sclerae normal Resp: Effort & Inspection: normal respiratory effort Cardio: Rate: regular rate GI: Inspection: non-distended GI Palp: Yes Soft to palpation, No Firmness to palpation present (GI), No Tenderness to palpation present (GI) and No Guarding due to palpation present (GI) : General: Yes bladder normal to palpation Male General Exam: Yes normal external exam Urinary Catheter: Urinary Catheter: patent and draining and urine clear Skin: General skin exam: normal color Neuro: Speech: normal speech Objective Data Vital Signs Vital Signs: Vital Signs - 24 hr 10/15/23 09:02 10/15/23 11:20 10/15/23 11:35 Temperature 36.4 C Pulse Rate 114 H 102 H 123 H Respiratory Rate 18 20 20 Blood Pressure 174/82 H 160/77 H 149/77 H Pulse Oximetry 97 100 93 Oxygen Delivery Simple Face Mask Nasal Cannula Oxygen Flow Rate 10 2 Fraction of Inspired Oxygen 10/15/23 11:50 10/15/23 12:05 10/15/23 12:21 Temperature Pulse Rate 111 H 111 H 111 H Respiratory Rate 24 H 22 H 19 Blood Pressure 136/67 127/66 129/72 Pulse Oximetry 96 91 95 Oxygen Delivery Nasal Cannula Nasal Cannula Nasal Cannula Oxygen Flow Rate 2 2 2 Fraction of Inspired Oxygen 10/15/23 12:44 10/15/23 12:59 10/15/23 13:29 Temperature 36.8 C 37.2 C 36.5 C Pulse Rate 113 H 108 H 109 H Respiratory Rate 22 H 16 22 H Blood Pressure 145/67 H 150/70 H 161/76 H Pulse Oximetry 96 95 95 Oxygen Delivery Oxygen Flow Rate Fraction of Inspired Oxygen 10/15/23 14:00 10/15/23 14:45 10/15/23 15:30 Temperature 36.5 C 36.2 C L 36.8 C Pulse Rate 108 H 101 H 98 Respiratory Rate 22 H 24 H 18 Blood Pressure 168/84 H 144/72 H 154/76 H Pulse Oximetry 99 96 96 Oxygen Delivery Oxygen Flow Rate Fraction of Inspired Oxygen 10/15/23 19:10 10/15/23 19:51 10/15/23 20:26 Temperature 37.3 C Pulse Rate 104 H 104 H Respiratory Rate 18 18 Blood Pressure 140/71 Pulse Oximetry 98 98 96 Oxygen Delivery Nasal Cannula Nasal Cannula Oxygen Flow Rate 10 2 Fraction of Inspired Oxygen 10/15/23 23:27 10/16/23 03:44 10/16/23 08:28 Temperature 36.5 C 37.6 C Pulse Rate 88 86 Respiratory Rate 16 16 Blood Pressure 126/60 159/68 H
[2023-10-16] MEDS: carvediloL 25 MG TABLET PO ×2 (08:50→20:20)
[2023-10-16] MEDS: PANTOPRAZOLE 40 MG TABLET PO (08:51)
[2023-10-16] MEDS: MULTIVITAMINS THERAPEUTIC TAB (*BKC) 1 TABLET PO (08:51)
[2023-10-16] MEDS: POTASSIUM CHLORIDE 10 MEQ ER TABLET PO (08:51)
[2023-10-16] MEDS: FUROSEMIDE 20 MG TABLET PO (08:51)
--- NOTE | 2023-10-16 09:59 | WPDANESPN ---
Anes - Prog Note Post-Op Date/Time: 10/16/23 09:59 Cardiovascular status: normal Respiratory status: normal Airway patency: baseline Mental status: baseline Post-Op hydration status: normal Vital Signs: Last Vital Signs Temp 37.6 C 10/16/23 03:44 Pulse 100 10/16/23 08:50 Resp 16 10/16/23 03:44 BP 159/68 H 10/16/23 03:44 Pulse Ox 95 10/16/23 08:28 O2 Del Method Nasal Cannula 10/16/23 08:28 O2 Flow Rate 2 10/16/23 08:28 FiO2 28 10/16/23 08:28 Pain Score (VAS): 10/01 I/O: Intake & Output 10/15/23 10/16/23 10/16/23 23:59 07:59 15:59 Intake Total 50 50 Output Total 1125 55 Balance -1075 -5 Laboratory Tests 10/16/23 05:02 10/16/23 05:02 10/15/23 10/16/23 12:37 05:02 WBC 15.1 H 10.9 H RBC 3.60 L 3.07 L Hgb 9.3 L 7.9 L Hct 32.0 L 27.0 L MCV 88.9 87.9 MCH 25.8 L 25.7 L MCHC 29.1 L 29.3 L RDW 17.8 H 17.8 H Plt Count 307 270 MPV 8.9 8.9 Immature Gran % (Auto) 0.3 0.5 Neut % (Auto) 95.4 H 85.2 H Lymph % (Auto) 2.2 L 6.6 L [place] % (Auto) 1.8 L 7.7 Eos % (Auto) 0.1 0.0 Baso % (Auto) 0.2 0.0 L Lymph # (Auto) 0.33 L 0.72 L [place] # (Auto) 0.3 0.8 H Eos # (Auto) 0.0 0.0 Baso # (Auto) 0.0 0.0 Abs Immat Gran (auto) 0.04 H 0.05 H Absolute Neuts (auto) 14.4 H 9.3 H Absolute Nucleated RBC 0.0 0.0 Nucleated RBC % 0.0 0.0 Platelet Estimate Adequate Pending Anisocytosis 1+ Ovalocytes 1+ Schistocytes None seen Pending Sodium 137 Potassium 4.6 Chloride 107 Carbon Dioxide 30 Anion Gap 0 L BUN 21 H Creatinine 1.50 H Estim Creat Clear Calc 38 Estimated GFR 46 L Glucose 107 Calcium 8.2 L Magnesium 2.0 Total Bilirubin 0.3 AST 24 ALT 11 Alkaline Phosphatase 90 Total Protein 6.0 L Albumin 2.8 L Blood Type O Positive Antibody Screen Negative Post-procedural complaints: none Patient Feedback: Patient satisfied with anesthetic care.
[2023-10-16 11:20] LABS: Hypochromasia 1+ (NORMAL); Platelet Estimate Adequate (Adequate); Schistocytes Rare (NORMAL)
--- NOTE | 2023-10-16 12:05 | PM.IMPN ---
Progress Note: A&P Assessment and Plan (1) Gross hematuria: Code(s): R31.0 - Gross hematuria Status: Acute (2) Acute urinary retention: Code(s): R33.8 - Other retention of urine Status: Acute Plan This is a 73-year-old male who presented with urinary retention and [place] hematuria. CT abdomen pelvis with distended bladder containing heterogeneous intraluminal soft tissue likely blood clots. Bladder tumor not excluded. Increasing consolidation of the right mid and left lower lung suspicious for pneumonia. There is associated bronchiectasis in the left lower lobe with left lower lobe nodule measuring 9 mm. Recommend correlation with 3 month low-dose CT chest extensive atherosclerosis of the aorta with infrarenal aortic abdominal aneurysm measuring 3.5 cm with mild aneurysmal dilation of the common iliac arteries. [place] catheter was placed in the ED. Urology has been consulted and underwent cystoscopy and clot evacuation. On CBI currently anticoagulation will be held. Follow urine culture which is pending leukocytosis improving. On ceftriaxone Leukocytosis noted mild anemia which is chronic CKD stage 3 at baseline creatinine level will continue to monitor will place on antibiotics. Chest CT reviewed from 07/14 as chronic pneumonia with inferior predominance left worse than right similar findings in CT scan prior to that likely represent interstitial lung disease chronic. He is not exhibiting any clinical signs and symptoms off pneumonia.. He has underlying history of sleep apnea on 2 L nasal cannula oxygen at nighttime. Emphysema. Has seen Pulmonary a in the hospital and also follows up with Pulmonary team at [facility]. Chest x-ray with mildly increased patchy bilateral airspace disease likely superimposed on chronic interstitial fibrosis/scarring. DVT prophylaxis placed on D SCDs Acute blood loss anemia continue to monitor Subjective Date/time seen: 10/16/23 12:05 Interval history: Discussed with urologist. Hematuria has resolved. Had some discomfort in lower suprapubic area area Review of Systems Review of Systems: All systems reviewed & are unremarkable except as noted in HPI and below Exam Narrative: ?APPEARANCE: No apparent distress. Head: atraumatic. EYES:? EOMI, NOSE: Atraumatic NECK: Trachea midline RESPIRATORY: No increased rate of breathing CARDIOVASCULAR: RRR, ABDOMINAL: ?Soft nontender MUSCULOSKELETAl: No obvious deformities NEURO: Alert. Moving 4/4 extremities SKIN:: Warm, dry. Normal color PSYCHIATRIC: Normal affect Objective Data Vital Signs Vital Signs: Vital Signs - 24 hr 10/15/23 12:21 10/15/23 12:44 10/15/23 12:59 Temperature 98.3 F 98.9 F Pulse Rate 111 H 113 H 108 H Respiratory Rate 19 22 H 16 Blood Pressure 129/72 145/67 H 150/70 H Pulse Oximetry 95 96 95 Oxygen Delivery Nasal Cannula Oxygen Flow Rate 2 Fraction of Inspired Oxygen 10/15/23 13:29 10/15/23 14:00 10/15/23 14:45 Temperature 97.7 F 97.7 F 97.2 F L Pulse Rate 109 H 108 H 101 H Respiratory Rate 22 H 22 H 24 H Blood Pressure 161/76 H 168/84 H 144/72 H Pulse Oximetry 95 99 96 Oxygen Delivery Oxygen Flow Rate Fraction of Inspired Oxygen 10/15/23 15:30 10/15/23 19:10 10/15/23 19:51 Temperature 98.2 F 99.1 F Pulse Rate 98 104 H 104 H Respiratory Rate 18 18 18 Blood Pressure 154/76 H 140/71 Pulse Oximetry 96 98 98 Oxygen Delivery Nasal Cannula Oxygen Flow Rate 10 Fraction of Inspired Oxygen 10/15/23 20:26 10/15/23 23:27 10/16/23 03:44 Temperature 97.7 F 99.6 F Pulse Rate 88 86 Respiratory Rate 16 16 Blood Pressure 126/60 159/68 H Pulse Oximetry 96 98 96 Oxygen Delivery Nasal Cannula Oxygen Flow Rate 2 Fraction of Inspired Oxygen 10/16/23 08:28 10/16/23 08:50 10/16/23 09:00 Temperature Pulse Rate 100 Respiratory Rate Blood Pressure Pulse Oximetry 95 97 Oxygen Delivery Nasal Cannula Nasal Cannu
[2023-10-16] MEDS: UMECLIDINIUM BROMIDE 62.5 MCG ELLIPTA 1 PUFF INHALATION (20:03)
[2023-10-16] MEDS: FLUTICASONE/SALMETEROL 230-21 MCG INHALER 1 PUFF 2 PUFF INHALATION (20:03)
[2023-10-16] MEDS: guaiFENesin 12 HR 600 MG TABCR PO (20:21)
[2023-10-16] MEDS: amLODIPine BESYLATE 5 MG TABLET PO (20:21)
[2023-10-16] MEDS: LORATADINE 10 MG TABLET PO (20:21)
[2023-10-16] MEDS: ATORVASTATIN 40 MG TABLET 80 MG PO (20:21)
[2023-10-16] MEDS: cilostazoL 50 MG TABLET PO (20:21)
[2023-10-16] MEDS: TAMSULOSIN HCL 0.4 MG CAPSULE 0.8 MG PO (20:21)
[2023-10-17] VITALS (10 sets, daily range): BP systolic 100–150; BP diastolic 60–70; PULSE 77–98; RESP 17–18; TEMP 36.4–36.8; O2SAT 94–99
[2023-10-17 05:18] LABS: Basophils Percent Auto 0.3 % (0.2-1.2); Eosinophils Absolute Auto 0.4 K/mm3 (0-0.3); Eosinophils Percent Auto 4.4 % (0-4.4); Hematocrit 27.5 % (42.0-52.0); Hemoglobin 7.9 g/dL (14.0-18.0); Immature Granulocyte Absolute 0.05 K/mm3 (0.00-0.031); Immature Granulocyte Percent A 0.5 % (0-0.5); Lymphocytes Absolute Auto 0.99 K/mm3 (0.9-3.2); Lymphocytes Percent Auto 10.6 % (18.3-44.2); Mean Corpuscular HGB Conc 28.7 g/dl (32-36); Mean Corpuscular Hemoglobin 25.5 pg (26-34); Mean Corpuscular Volume 88.7 fl (80-100); Mean Platelet Volume 9.9 fl (7.4-10.4); Monocytes Absolute Auto 0.9 K/mm3 (0.1-0.6); Monocytes Percent Auto 9.4 % (2.6-8.5); Neutrophils Percent Auto 74.8 % (45.5-73.1); Platelet Count Result 238 k/mm3 (150-375); White Blood Count 9.4 K/mm3 (4.5-10.0)
[2023-10-17 05:32] LABS: Alanine Aminotransferase 11 U/L (6-50); Albumin Level 2.8 g/dL (3.5-5.1); Alkaline Phosphatase 78 U/L (38-126); Anion Gap 0 mmol/L (8-16); Aspartate Amino Transferase 34 U/L (17-59); Bilirubin,Total 0.5 mg/dL (0.2-1.3); Blood Urea Nitrogen 25 mg/dL (9-20); Calcium 8.2 mg/dL (8.4-10.2); Carbon Dioxide 31 mmol/L (22-30); Chloride 105 mmol/L (98-107); Estimated CRCL calculation 43 ml/min; Estimated Glomerular Filt Rate 54; Glucose 92 mg/dL (65-110); Magnesium 1.8 mg/dL (1.6-2.3); Potassium 4.3 mmol/L (3.4-5.0); Sodium 136 mmol/L (137-145)
[2023-10-17] MEDS: traMADol HCL (*CRX) 50 MG TABLET PO ×2 (05:49→20:26)
[2023-10-17 05:53] LABS: Platelet Estimate Adequate (Adequate); Poikilocytosis 2+ (NORMAL)
[2023-10-17 05:54] LABS: Anisocytosis 2+ (NORMAL); Hypochromasia 2+ (NORMAL); Ovalocytes 2+ (NORMAL)
[2023-10-17 05:56] LABS: Burr Cells 2+ (NORMAL); Schistocytes None Seen (NORMAL)
[2023-10-17] MEDS: UMECLIDINIUM BROMIDE 62.5 MCG ELLIPTA 1 PUFF INHALATION (07:45)
[2023-10-17] MEDS: FLUTICASONE/SALMETEROL 230-21 MCG INHALER 1 PUFF 2 PUFF INHALATION ×2 (07:46→20:19)
[2023-10-17] MEDS: PANTOPRAZOLE 40 MG TABLET PO (08:11)
[2023-10-17] MEDS: POTASSIUM CHLORIDE 10 MEQ ER TABLET PO (08:11)
[2023-10-17] MEDS: FUROSEMIDE 20 MG TABLET PO (08:11)
[2023-10-17] MEDS: carvediloL 25 MG TABLET PO ×2 (08:11→20:27)
[2023-10-17] MEDS: guaiFENesin 12 HR 600 MG TABCR PO ×2 (08:11→20:27)
[2023-10-17] MEDS: MULTIVITAMINS THERAPEUTIC TAB (*BKC) 1 TABLET PO (08:11)
--- NOTE | 2023-10-17 09:09 | WPDUROPN2 ---
Progress Note: A&P Assessment and Plan (1) Gross hematuria: Code(s): R31.0 - Gross hematuria Status: Acute Assessment and Plan: POD#2 s/p cysto with clot evacuation and fulguration of bleeding He tolerated the procedure well. Urine cleared with CBI and was discontinued Aspirin and Plavix on hold Hemoglobin and hematocrit remaining stable (2) Acute urinary retention: Code(s): R33.8 - Other retention of urine Status: Acute Assessment and Plan: Clot retention s/p cystoscopy with clot evacuation 10/15/2023 [place] catheter removed this morning Check bladder scan after 1st void Okay for discharge from a urologic standpoint if voiding well and PVR <300 He has outpatient follow-up scheduled in 2 weeks, will check bladder scan at that time to ensure he continues to empty well (3) Urethral stricture: Code(s): N35.919 - Unspecified urethral stricture, male, unspecified site Status: Acute Assessment and Plan: S/p urethral dilation 10/15/2023 Subjective Subjective Date/Time Seen: 10/17/23 09:09 Interval history: Vik is feeling well today. He offers no complaints. His [place] catheter was removed this morning, about 2 hours ago. He has not voided yet. He is eating breakfast. He denies suprapubic pain, flank pain, nausea, vomiting, fever, chills. His hemoglobin has remained stable at 7 point within normal limits. Creatinine stable, consistent with baseline. Review of Systems Review of Systems: All systems reviewed & are unremarkable except as noted in HPI and below Exam Narrative: General: Awake, alert, comfortable, no acute distress HEENT: Normocephalic, atraumatic, sclerae anicteric Respiratory: Normal respiratory effort, no accessory muscle use Abdomen: Nondistended, soft, nontender Skin: Normal coloration, warm and dry Neurologic: No focal neuro deficits noted Psychiatric: Appropriate mood and affect, judgment and insight intact Objective Data Vital Signs Vital Signs: Vital Signs - 24 hr 10/16/23 13:11 10/16/23 13:40 10/16/23 19:33 Temperature 97.6 F 98.0 F Pulse Rate 81 87 Respiratory Rate 14 17 Blood Pressure 142/64 H 165/67 H Pulse Oximetry 100 99 Oxygen Delivery Nasal Cannula Oxygen Flow Rate 2 Fraction of Inspired Oxygen 10/16/23 20:03 10/16/23 20:20 10/17/23 04:49 Temperature 98.0 F Pulse Rate 87 87 77 Respiratory Rate 17 Blood Pressure 143/65 H Pulse Oximetry 94 99 Oxygen Delivery Nasal Cannula Oxygen Flow Rate 2 Fraction of Inspired Oxygen 28 10/17/23 07:47 10/17/23 08:11 10/17/23 08:59 Temperature 98.0 F Pulse Rate 80 96 Respiratory Rate 17 Blood Pressure 100/60 Pulse Oximetry 94 98 Oxygen Delivery Nasal Cannula Oxygen Flow Rate 2 Fraction of Inspired Oxygen Intake/Output Intake/Output: Intake & Output 10/14/23 10/15/23 10/16/23 10/17/23 23:59 23:59 23:59 23:59 Intake Total 450 1070 610 Output Total 82800 5855 145 [id number] Meds/Results Medications: Active Medications Generic Name Dose Route Start Last Admin Trade Name Freq PRN Reason Stop Dose Admin Acetaminophen 1,000 mg 10/15/23 14:53 Acetaminophen 500 Mg Tablet PO Q6H PRN Mild Pain (Scale Score 1-4) Albuterol 2.5 mg 10/15/23 14:53 Albuterol Sulfate Neb 2.5 Mg/3 Ml Inh INHALATION Q4-6H PRN Shortness Of Breath Amlodipine Besylate 5 mg 10/15/23 21:00 10/16/23 20:21 Amlodipine Besylate 5 Mg Tablet PO 5 mg HS JUSTIN Administration Atorvastatin Calcium 80 mg 10/15/23 21:00 10/16/23 20:21 Atorvastatin 40 Mg Tablet PO 80 mg HS JUSTIN Administration Carvedilol 25 mg 10/15/23 21:00 10/17/23 08:11 Carvedilol 25 Mg Tablet PO 25 mg Q12H JUSTIN Administration Cilostazol 50 mg 10/15/23 21:00 10/16/23 20:21 Cilostazol 50 Mg Tablet PO 50 mg HS JUSTIN Administration Doxepin HCl 25 mg 10/15/23 14:53 Doxepin Hcl 2
--- NOTE | 2023-10-17 11:51 | PM.IMPN ---
Progress Note: A&P Assessment and Plan (1) Gross hematuria: Code(s): R31.0 - Gross hematuria Status: Acute (2) Acute urinary retention: Code(s): R33.8 - Other retention of urine Status: Acute Plan This is a 73-year-old male who presented with urinary retention and [place] hematuria. CT abdomen pelvis with distended bladder containing heterogeneous intraluminal soft tissue likely blood clots. Bladder tumor not excluded. Increasing consolidation of the right mid and left lower lung suspicious for pneumonia. There is associated bronchiectasis in the left lower lobe with left lower lobe nodule measuring 9 mm. Recommend correlation with 3 month low-dose CT chest extensive atherosclerosis of the aorta with infrarenal aortic abdominal aneurysm measuring 3.5 cm with mild aneurysmal dilation of the common iliac arteries. [place] catheter was placed in the ED. Urology has been consulted and underwent cystoscopy and clot evacuation. Was placed on CBI post cystoscopy. CBI has been discontinued and [place] catheter removed however recurrence of hematuria. Will continue to monitor for now continue to hold anti-platelet therapy. Follow urine culture which is no growth. Leukocytosis resolved. On ceftriaxone Acute on chronic mild anemia related to blood loss no transfusion needed now stabilized CKD stage 3 at baseline creatinine level will continue to monitor Chest CT reviewed from 07/14 as chronic pneumonia with inferior predominance left worse than right similar findings in CT scan prior to that likely represent interstitial lung disease chronic. He is not exhibiting any clinical signs and symptoms off pneumonia.. He has underlying history of sleep apnea on 2 L nasal cannula oxygen at nighttime. Emphysema. Has seen Pulmonary a in the hospital and also follows up with Pulmonary team at [facility]. Chest x-ray with mildly increased patchy bilateral airspace disease likely superimposed on chronic interstitial fibrosis/scarring. DVT prophylaxis placed on D SCDs Acute blood loss anemia continue to monitor Subjective Date/time seen: 10/17/23 11:51 Interval history: London was removed this morning. He had pancreas urine with some clot after that. Reports some suprapubic pain which is improving. Remains afebrile no other complaints. Discussed with urologist Review of Systems Review of Systems: All systems reviewed & are unremarkable except as noted in HPI and below Exam Narrative: General: Awake, alert, comfortable, no acute distress HEENT: Normocephalic, atraumatic, sclerae anicteric Respiratory: Normal respiratory effort, no accessory muscle use Abdomen: Nondistended, soft, nontender Skin: Normal coloration, warm and dry Neurologic: No focal neuro deficits noted Psychiatric: Appropriate mood and affect, judgment and insight intact Objective Data Vital Signs Vital Signs: Vital Signs - 24 hr 10/16/23 13:11 10/16/23 13:40 10/16/23 19:33 Temperature 97.6 F 98.0 F Pulse Rate 81 87 Respiratory Rate 14 17 Blood Pressure 142/64 H 165/67 H Pulse Oximetry 100 99 Oxygen Delivery Nasal Cannula Oxygen Flow Rate 2 Fraction of Inspired Oxygen 10/16/23 20:03 10/16/23 20:20 10/17/23 04:49 Temperature 98.0 F Pulse Rate 87 87 77 Respiratory Rate 17 Blood Pressure 143/65 H Pulse Oximetry 94 99 Oxygen Delivery Nasal Cannula Oxygen Flow Rate 2 Fraction of Inspired Oxygen 28 10/17/23 07:47 10/17/23 08:11 10/17/23 08:59 Temperature 98.0 F Pulse Rate 80 96 Respiratory Rate 17 Blood Pressure 100/60 Pulse Oximetry 94 98 Oxygen Delivery Nasal Cannula Oxygen Flow Rate 2 Fraction of Inspired Oxygen 10/17/23 08:10 Temperature Pulse Rate Respiratory Rate Blood Pressure Pulse Oximetry 98 Oxygen Delivery Nasal Cannula Oxygen Flow Rate 2 Fraction of Inspired Oxygen Intake/Output Intake/Output: Intake & Output 10/14/23 10/15/23
--- NOTE | 2023-10-17 17:05 | PC.NURSE ---
I reviewed the License Pending RN's documentation and agree with the findings.
[2023-10-17] MEDS: cilostazoL 50 MG TABLET PO (20:26)
[2023-10-17] MEDS: TAMSULOSIN HCL 0.4 MG CAPSULE 0.8 MG PO (20:26)
[2023-10-17] MEDS: ATORVASTATIN 40 MG TABLET 80 MG PO (20:27)
[2023-10-17] MEDS: amLODIPine BESYLATE 5 MG TABLET PO (20:27)
[2023-10-17] MEDS: LORATADINE 10 MG TABLET PO (20:27)
[2023-10-18 05:21] LABS: Basophils Percent Auto 0.3 % (0.2-1.2); Eosinophils Absolute Auto 0.6 K/mm3 (0-0.3); Eosinophils Percent Auto 6.6 % (0-4.4); Hematocrit 27.8 % (42.0-52.0); Immature Granulocyte Absolute 0.07 K/mm3 (0.00-0.031); Immature Granulocyte Percent A 0.7 % (0-0.5); Lymphocytes Absolute Auto 1.01 K/mm3 (0.9-3.2); Lymphocytes Percent Auto 10.3 % (18.3-44.2); Mean Corpuscular HGB Conc 28.8 g/dl (32-36); Mean Corpuscular Hemoglobin 25.5 pg (26-34); Mean Corpuscular Volume 88.5 fl (80-100); Monocytes Absolute Auto 0.9 K/mm3 (0.1-0.6); Monocytes Percent Auto 9.1 % (2.6-8.5); Neutrophils Absolute Auto 7.1 K/mm3 (1.3-6.7); Platelet Count Result 267 k/mm3 (150-375); Red Blood Count 3.14 M/mm3 (4.6-6.20); Red Cell Distribution Width 17.9 % (11.5-14.5); White Blood Count 9.8 K/mm3 (4.5-10.0)
[2023-10-18 05:36] LABS: Alanine Aminotransferase 11 U/L (6-50); Albumin Level 2.8 g/dL (3.5-5.1); Alkaline Phosphatase 86 U/L (38-126); Anion Gap 2 mmol/L (8-16); Aspartate Amino Transferase 28 U/L (17-59); Bilirubin,Total 0.3 mg/dL (0.2-1.3); Blood Urea Nitrogen 24 mg/dL (9-20); Calcium 8.3 mg/dL (8.4-10.2); Carbon Dioxide 31 mmol/L (22-30); Chloride 104 mmol/L (98-107); Estimated CRCL calculation 38 ml/min; Estimated Glomerular Filt Rate 46; Glucose 99 mg/dL (65-110); Magnesium 1.8 mg/dL (1.6-2.3); Potassium 3.9 mmol/L (3.4-5.0); Sodium 137 mmol/L (137-145)
[2023-10-18 06:34] LABS: Hypochromasia 1+ (NORMAL); Ovalocytes 1+ (NORMAL); Platelet Estimate Adequate (Adequate); Poikilocytosis 1+ (NORMAL)
[2023-10-18 06:35] LABS: Schistocytes Rare (NORMAL)
[2023-10-18 08:05] VITALS: BP 150/70; PULSE 87; RESP 18; TEMP 37.1; O2SAT 97
[2023-10-18 08:20] VITALS: O2SAT 96
[2023-10-18 08:27] VITALS: PULSE 88
[2023-10-18] MEDS: FUROSEMIDE 20 MG TABLET PO (08:27)
[2023-10-18] MEDS: POTASSIUM CHLORIDE 10 MEQ ER TABLET PO (08:27)
[2023-10-18] MEDS: carvediloL 25 MG TABLET PO (08:27)
[2023-10-18] MEDS: MULTIVITAMINS THERAPEUTIC TAB (*BKC) 1 TABLET PO (08:27)
[2023-10-18] MEDS: PANTOPRAZOLE 40 MG TABLET PO (08:27)
[2023-10-18] MEDS: guaiFENesin 12 HR 600 MG TABCR PO (08:27)
[2023-10-18] MEDS: FLUTICASONE/SALMETEROL 230-21 MCG INHALER 1 PUFF 2 PUFF INHALATION (08:52)
[2023-10-18] MEDS: UMECLIDINIUM BROMIDE 62.5 MCG ELLIPTA 1 PUFF INHALATION (08:52)
[2023-10-18 08:56] VITALS: PULSE 103; RESP 18; O2SAT 95
--- NOTE | 2023-10-18 12:28 | WPDUROPN2 ---
Progress Note: A&P Assessment and Plan (1) Gross hematuria: Code(s): R31.0 - Gross hematuria Status: Acute Assessment and Plan: POD#2 s/p cysto with clot evacuation and fulguration of bleeding He tolerated the procedure well. Urine cleared with CBI and was discontinued Aspirin and Plavix on hold Hemoglobin and hematocrit have remained stable Slight recurrence of hematuria after kumari catheter removal as expected. Urine is becoming more clear (2) Acute urinary retention: Code(s): R33.8 - Other retention of urine Status: Acute Assessment and Plan: Clot retention s/p cystoscopy with clot evacuation 10/15/2023 Kumari catheter removed 10/17/23 and he has been able to void without difficulty Okay for discharge from a urologic standpoint if voiding well and PVR <300 He has outpatient follow-up scheduled in 2 weeks, will check bladder scan at that time to ensure he continues to empty well (3) Urethral stricture: Code(s): N35.919 - Unspecified urethral stricture, male, unspecified site Status: Acute Assessment and Plan: S/p cysto and urethral dilation 10/15/2023 Subjective Subjective Date/Time Seen: 10/18/23 12:28 Interval history: Vik is feeling well today. He had some hematuria yesterday after kumari catheter removal but was able to void without difficulty. His urine continued to clear throughouth the day. This morning he passed a small clot but other than that urine has been clear pinkish. Feels he is emptying well. Tolerating diet. No N/V/F/C. His hemoglobin is stable at 8.0. WBC 9.8. Cr 1.5. Urine culture with no growth. Review of Systems Review of Systems: All systems reviewed & are unremarkable except as noted in HPI and below Exam Narrative: General: Awake, alert, comfortable, no acute distress HEENT: Normocephalic, atraumatic, sclerae anicteric Respiratory: Normal respiratory effort, no accessory muscle use Abdomen: Nondistended, soft, nontender : urine visualized in urinal with one small clot, urine light pink Skin: Normal coloration, warm and dry Neurologic: No focal neuro deficits noted Psychiatric: Appropriate mood and affect, judgment and insight intact Objective Data Vital Signs Vital Signs: Vital Signs - 24 hr 10/17/23 13:05 10/17/23 17:16 10/17/23 20:10 Temperature 97.6 F 98.3 F 98.2 F Pulse Rate 91 98 87 Respiratory Rate 17 17 18 Blood Pressure 144/62 H 144/70 H 150/69 H Pulse Oximetry 97 98 97 Oxygen Delivery Oxygen Flow Rate Fraction of Inspired Oxygen 10/17/23 20:19 10/17/23 20:19 10/17/23 20:27 Temperature Pulse Rate 95 95 95 Respiratory Rate 18 18 Blood Pressure Pulse Oximetry 95 Oxygen Delivery Nasal Cannula Oxygen Flow Rate 2 Fraction of Inspired Oxygen 10/18/23 08:27 10/18/23 08:56 10/18/23 08:20 Temperature Pulse Rate 88 103 H Respiratory Rate 18 Blood Pressure Pulse Oximetry 95 96 Oxygen Delivery Nasal Cannula Nasal Cannula Oxygen Flow Rate 2 2 Fraction of Inspired Oxygen 28 10/18/23 08:05 Temperature 98.8 F Pulse Rate 87 Respiratory Rate 18 Blood Pressure 150/70 H Pulse Oximetry 97 Oxygen Delivery Oxygen Flow Rate Fraction of Inspired Oxygen Intake/Output Intake/Output: Intake & Output 10/15/23 10/16/23 10/17/23 10/18/23 23:59 23:59 23:59 23:59 Intake Total 450 1070 2140 240 Output Total 27756 5855 2650 175 [facility] -[id number] [id number] [id number] 65 Meds/Results Medications: Active Medications Generic Name Dose Route Start Last Admin Trade Name Freq PRN Reason Stop Dose Admin Acetaminophen 1,000 mg 10/15/23 14:53 Acetaminophen 500 Mg Tablet PO Q6H PRN Mild Pain (Scale Score 1-4) Albuterol 2.5 mg 10/15/23 14:53 Albuterol Sulfate Neb 2.5 Mg/3 Ml Inh INHALATION Q4-6H PRN Shortness Of Breath Amlodipine Besylate 5 mg 10/15/23 21:00 10/17/23 20:27 Amlodipine Besylate 5 Mg Tablet PO 5 mg HS JUSTIN
--- NOTE | 2023-10-18 12:57 | PM.DS ---
DS: Admitting Diagnosis Discharge Date 10/18/2023 Admitting Diagnosis Hematuria DS: Discharge Diagnosis Discharge Diagnosis (1) Gross hematuria: Code(s): R31.0 - Gross hematuria Status: Acute (2) Acute urinary retention: Code(s): R33.8 - Other retention of urine Status: Acute DS: Summary Hospital Course Hospital Course: This is a 73-year-old male who presented with urinary retention and [place] hematuria.? CT abdomen pelvis with distended bladder containing heterogeneous intraluminal soft tissue likely blood clots.? Bladder tumor not excluded.? Increasing consolidation of the right mid and left lower lung suspicious for pneumonia.? There is associated bronchiectasis in the left lower lobe with left lower lobe nodule measuring 9 mm.? Recommend correlation with 3 month low-dose CT chest extensive atherosclerosis of the aorta with infrarenal aortic abdominal aneurysm measuring 3.5 cm with mild aneurysmal dilation of the common iliac arteries.? [place] catheter was placed in the ED.? Urology has been consulted and underwent cystoscopy and clot evacuation.? Was placed on CBI post cystoscopy.? CBI has been discontinued and [place] catheter removed however recurrence of hematuria.? Will continue to monitor for now continue to hold anti-platelet therapy.? Follow urine culture which is no growth. This could be related to recent treatment with ciprofloxacin. Leukocytosis resolved with treatment.? On ceftriaxone. This will be switched to cefdinir to complete 7 days course antibiotic therapy With resolution of hematuria CBI and [place] catheter was removed. After removal he did have pancreas your few clots but did continue to improve. His H&H remained stable without further drop. Urine continue to follow-up with urology as an outpatient basis. Acute on chronic mild anemia related to blood loss no transfusion needed now stabilized CKD stage 3 at baseline creatinine level will continue to monitor ?Chest CT reviewed from 07/14 as chronic pneumonia with inferior predominance left worse than right similar findings in CT scan prior to that likely represent interstitial lung disease chronic.? He is not exhibiting any clinical signs and symptoms off pneumonia..? He has underlying history of sleep apnea on 2 L nasal cannula oxygen at nighttime.? Emphysema.? Has seen Pulmonary a in the hospital and also follows up with Pulmonary team at [facility].? Chest x-ray with mildly increased patchy bilateral airspace disease likely superimposed on chronic interstitial fibrosis/scarring. DVT prophylaxis placed on D SCDs Acute blood loss anemia continue to monitor Time Spent with Patient Time attestation: Total time spent providing and/or coordinating discharge services: 35 minutes Exam Narrative: General: Awake, alert, comfortable, no acute distress HEENT: Normocephalic, atraumatic, sclerae anicteric Respiratory: Normal respiratory effort, no accessory muscle use Abdomen: Nondistended, soft, nontender : urine visualized in urinal with one small clot, urine light pink Skin: Normal coloration, warm and dry Neurologic: No focal neuro deficits noted Psychiatric: Appropriate mood and affect, judgment and insight intact DS: Data Data Completed and Pending Labs on day of discharge: Labs from last 24 hours 10/18/23 04:59 WBC 9.8 RBC 3.14 L Hgb 8.0 L Hct 27.8 L MCV 88.5 MCH 25.5 L MCHC 28.8 L RDW 17.9 H Plt Count 267 MPV 9.0 Immature Gran % (Auto) 0.7 H Neut % (Auto) 73.0 Lymph % (Auto) 10.3 L [place] % (Auto) 9.1 H Eos % (Auto) 6.6 H Baso % (Auto) 0.3 Lymph # (Auto) 1.01 [place] # (Auto) 0.9 H Eos # (Auto) 0.6 H Baso # (Auto) 0.0 Abs Immat Gran (auto) 0.07 H Absolute Neuts (auto) 7.1 H Absolute Nucleated RBC 0.0 Nucleated RBC % 0.0 Platelet Estimate Adequate Hypochromasia 1+ Poikilocytosis 1+ Ovalocytes 1+ Schistocytes Rare Sodium 137 Potassium 3.9 Chloride 104 Carbon
== END 2023-10-18 14:20 | disposition home or self-care (01) | DRG 663 ==
LOC: ANHED 07:57 → ANH3MEDSUR 09:08 → ANH2MED 10:36 → ANH3MEDSUR 15:11
PROVIDERS: Urology; Admitting Provider Hospitalist; Emergency Provider Emergency Medicine; PCP Family Medicine; Visit Provider Internal Medicine
PROC: 0TCB8ZZ Extirpation of Matter from Bladder, Via Natural or Artificial Opening Endoscopic (ICD-10-PCS; CPT 52001; principal; 2023-10-15 10:00)
DX: R31.0 Gross hematuria (principal); D62 Acute posthemorrhagic anemia; I13.0 Hypertensive heart and chronic kidney disease with heart failure and stage 1 through stage 4 chronic kidney disease, or unspecified chronic kidney disease; I50.32 Chronic diastolic (congestive) heart failure; J43.9 Emphysema, unspecified; N40.1 Benign prostatic hyperplasia with lower urinary tract symptoms; R33.8 Other retention of urine; N18.30 Chronic kidney disease, stage 3 unspecified; I70.202 Unspecified atherosclerosis of native arteries of extremities, left leg; D64.9 Anemia, unspecified; K21.9 Gastro-esophageal reflux disease without esophagitis; M19.90 Unspecified osteoarthritis, unspecified site; G47.33 Obstructive sleep apnea (adult) (pediatric); Z96.643 Presence of artificial hip joint, bilateral; Z79.82 Long term (current) use of aspirin; Z95.810 Presence of automatic (implantable) cardiac defibrillator; Z95.820 Peripheral vascular angioplasty status with implants and grafts; Z87.891 Personal history of nicotine dependence
CPT/HCPCS: 36415; 71045; 74176; 80053; 81001; 83735; 85025; 85610; 85730; 86850; 86900; 86901; 87086; 94640; 96361; 96374; 96375; 96376; 97161; 97165; 99285; A9270; C1726; C1757; C1769; G0378; J0690; J0696; J1100; J1170; J2371; J2405; J2704; J7120

== ENCOUNTER 2024-01-13 13:32 | Outpatient (CLI) | payer MEDICARE, SELFPAY ==
--- NOTE | ~2024-01-13 | CT_ITS ---
EXAMINATION:CT diagnostic chest wo con DATE: 01/13/2024 14:20 INDICATION: Other nonspecific abnormal finding of lung field. TECHNIQUE: Computed tomography (CT) of the chest was performed without intravenous contrast. Automate d exposure control and iterative reconstruction technique were employed. The dose-length product (DLP ) was 208.05 mGy-cm. COMPARISON: Chest CT 06/30/2023 FINDINGS: There is severe emphysema. There is mild bronchiectasis in the inferior lungs with mucous p lugging in the lower lobes. There are scattered nodules and small airspace opacities involving all lo bes. There is mild pleural thickening on the left. No pleural effusion. The heart size is normal. The re are coronary artery calcifications. No pericardial effusion. There is a left chest wall pacer with leads in the right atrium and right ventricle. There is mild mediastinal lymphadenopathy, likely leigh ctive. There is cortical thinning of left kidney. There are cysts in the kidneys measuring up to 1.9 cm on the left. There is moderate thoracic spondylosis. There is a fracture of the body of the sternu m with nonunion. IMPRESSION: 1. Mildly worsening diffuse lung disease, consistent with chronic pneumonia. 2. Severe emphysema. Reviewed, dictated and finalized at location A.
== END 2024-01-13 13:33 | disposition home or self-care (01) ==
PROVIDERS: PCP Family Medicine; Visit Provider Internal Medicine Pulmonary Disease
DX: R91.8 Other nonspecific abnormal finding of lung field (principal); J43.9 Emphysema, unspecified
CPT/HCPCS: 71250

== ENCOUNTER 2024-01-23 12:41 | Outpatient (CLI) | payer MEDICARE, SELFPAY ==
--- NOTE | 2024-01-23 14:08 | P.PCNSIX_ITS ---
Six Minute Walk Procedure Procedure Performed Pulmonary Stress Test (6 min walk) Six Minute Walk Six Minute Walk: This 6 minute walk test was carried out with the patient breathing supplemental oxygen at 2 liters/minute. The pre walk baseline oxyhemoglobin saturation was 97%. The patient walked 122 m with no stops during testing. During the walk the oxyhemoglobin saturation ranged from 89% to 97%. Impression: No evidence of significant oxyhemoglobin desaturation on this testi ng.
== END 2024-01-23 12:42 | disposition home or self-care (01) ==
LOC: ANHPFT 12:44
PROVIDERS: PCP Family Medicine; Visit Provider Family Medicine
DX: J44.9 Chronic obstructive pulmonary disease, unspecified (principal); J98.8 Other specified respiratory disorders; B96.5 Pseudomonas (aeruginosa) (mallei) (pseudomallei) as the cause of diseases classified elsewhere; Z99.81 Dependence on supplemental oxygen
CPT/HCPCS: 94618

== ENCOUNTER 2024-02-17 12:28 | Outpatient (CLI) | payer MEDICARE, SELFPAY ==
[2024-02-17 13:09] LABS: Basophils Percent Auto 0.6 % (0.2-1.2); Eosinophils Absolute Auto 0.4 K/mm3 (0-0.3); Eosinophils Percent Auto 4.9 % (0-4.4); Hematocrit 33.3 % (42.0-52.0); Hemoglobin 9.1 g/dL (14.0-18.0); Immature Granulocyte Absolute 0.02 K/mm3 (0.00-0.031); Immature Granulocyte Percent A 0.3 % (0-0.5); Lymphocytes Absolute Auto 0.83 K/mm3 (0.9-3.2); Lymphocytes Percent Auto 11.6 % (18.3-44.2); Mean Corpuscular HGB Conc 27.3 g/dl (32-36); Mean Corpuscular Hemoglobin 22.1 pg (26-34); Mean Platelet Volume 8.8 fl (7.4-10.4); Monocytes Absolute Auto 0.5 K/mm3 (0.1-0.6); Monocytes Percent Auto 7.2 % (2.6-8.5); Neutrophils Absolute Auto 5.4 K/mm3 (1.3-6.7); Neutrophils Percent Auto 75.4 % (45.5-73.1); Platelet Count Result 283 k/mm3 (150-375); Red Blood Count 4.11 M/mm3 (4.6-6.20); Red Cell Distribution Width 16.2 % (11.5-14.5); White Blood Count 7.2 K/mm3 (4.5-10.0)
[2024-02-17 13:50] LABS: Anisocytosis 1+; Hypochromasia 1+; Platelet Estimate Adequate (Adequate); Schistocytes Rare
[2024-02-17 13:51] LABS: Microcytosis 1+ (NORMAL)
[2024-02-17 14:02] LABS: HIV 1/2 Ab P24 Ag Result Negative (Negative)
[2024-02-17 14:03] LABS: Rheumatoid Factor < 12.0 IU/ML (<12)
[2024-02-18 12:38] LABS: Immunoglobulin A 367 mg/dL (70-320); Immunoglobulin G 1472 mg/dL (600-1540); Immunoglobulin M 65 mg/dL (50-300)
[2024-02-20 10:53] LABS: ANA Cascade Screen POSITIVE (NEGATIVE); Chromatin (Nucleosomal) Ab <1.0 NEG AI (<1.0 NEG); Chromatin Antibody Charge YES; DNA (ds) Antibody Charge YES; RNP Antibody 2.7 POS AI (<1.0 NEG); RNP Antibody Charge YES; Sm Antibody <1.0 NEG AI (<1.0 NEG); Sm Antibody Charge YES; Sm/RNP Antibody <1.0 NEG AI (<1.0 NEG); Sm/RNP Antibody Charge YES
[2024-02-20 17:09] LABS: Immunoglobulin E 105 kU/L (<OR=114)
[2024-02-21 01:14] LABS: Immunoglobulin G, Serum 1297 mg/dL (600-1540); Immunoglobulin G1 760 mg/dL (382-929); Immunoglobulin G2 267 mg/dL (241-700); Immunoglobulin G3 155 mg/dL (22-178); Immunoglobulin G4 139.3 mg/dL (4.0-86.0)
[2024-02-21 19:39] LABS: NIL 0.01 IU/mL; Quantiferon TB Plus, 1T NEGATIVE (NEGATIVE); TB1-NIL 0.03 IU/mL; TB2-NIL 0.01 IU/mL
[2024-02-22 07:15] LABS: Conventional Class 0
[2024-02-22 07:16] LABS: Conventional Class 1
[2024-02-22 07:19] LABS: Aspergillus Fumigatus K/UL 0.61
[2024-02-27 13:59] LABS: Anti Cyclic Citrullinated Pept <16 UNITS
== END 2024-02-17 12:29 | disposition home or self-care (01) ==
PROVIDERS: PCP Family Medicine; Visit Provider Internal Medicine Pulmonary Disease
DX: J43.1 Panlobular emphysema (principal); J98.4 Other disorders of lung; J84.9 Interstitial pulmonary disease, unspecified; Z11.4 Encounter for screening for human immunodeficiency virus [HIV]
CPT/HCPCS: 36415; 82784; 82785; 82787; 85025; 86003; 86038; 86200; 86225; 86235; 86364; 86430; 86480; 86703; G0432

== ENCOUNTER 2024-02-20 13:26 | Outpatient (CLI) | payer MEDICARE, SELFPAY ==
--- NOTE | 2024-02-20 16:17 | WPDPFTINT ---
PFT Procedure Performed PFT Procedure Performed Spirometry with Pre/Post Bronchodilator Plethysmography (Lung Vol) Diffusing Cap (DLCO) Flow Vol Loop PFT Interpretation This is a pulmonary function test with pre and post-bronchodilator spirometry, plethysmography and diffusing capacity. The test was performed and results interpreted in accordance with the 2019 and 2005 ATS/ERS Task Force guidelines respectively using the Global Lung Function Initiative-2012 reference equations. Patient demonstrated good effort and cooperation. Reproducibility criteria were met. The quality of the pre bronchodilator spirometry maneuver was Grade A and post bronchodilator spirometry maneuver was Grade A. Findings: Spirometry: There is decreased maximal expiratory airflow at all lung volumes with concave expiratory flow tracing. The contour the inspiratory flow tracing is normal. The pre bronchodilator FVC is 3.20 L, 82% predicted. The pre bronchodilator FEV1 is 1.12 L, 38% predicted. The pre bronchodilator FEV1: FVC ratio is 35%. The post bronchodilator FVC is 3.15 L, representing a 2% decrease. The post bronchodilator FEV1 is 1.12 L, representing no change. The post bronchodilator FEV1: FVC ratio is 36%. Plethysmography: The total lung capacity is 7.39 L, 111% predicted. The functional residual capacity is 5.84 L, 166% predicted. The residual volume is 4.19 L, 176% predicted. The residual volume: Total lung capacity ratio is 57%. Diffusing capacity: The diffusing capacity unadjusted for hemoglobin and carboxyhemoglobin is 9.0, 36% predicted. The diffusing capacity adjusted for alveolar volume is 2.48 L, 62% predicted. In comparison to previous pulmonary function testing on 09/29/2021 the post bronchodilator FVC is unchanged from 3.28 L to 3.15 L. The post bronchodilator FEV1 is decreased from 1.34 L to 1.12 L. The total lung capacity is unchanged from 8.00 L to 7.39 L. The functional residual capacity is unchanged from 6.81 L to 5.84 L. The residual volume is unchanged from 4.76 L to 4.19 L. The residual volume: Total lung capacity ratio is unchanged from 60% to 57%. The diffusing capacity unadjusted for hemoglobin and carboxyhemoglobin is unchanged from 10.4 to 9.0. The diffusing capacity adjusted for alveolar volume is unchanged from 2.56 to 2.48. Impression: There is a severe obstructive abnormality. There is no significant improvement after inhaling a single dose of albuterol. The increase in residual volume to total lung volume ratio is consistent with hyperinflation from an obstructive abnormality. The diffusing capacity unadjusted for hemoglobin and carboxyhemoglobin is severely decreased and remains mildly decreased when adjusted for alveolar volume. In comparison to the previous pulmonary function testing on 09/29/2021 there has been a greater than anticipated time dependent decrease in the FEV1 and no significant change in the FVC, total lung capacity, functional residual capacity, residual volume or diffusing capacity. Clinical correlation is recommended.
== END 2024-02-20 13:27 | disposition home or self-care (01) ==
LOC: ANHPFT 13:26
PROVIDERS: PCP Family Medicine; Visit Provider Internal Medicine Pulmonary Disease
DX: J44.9 Chronic obstructive pulmonary disease, unspecified (principal); J47.9 Bronchiectasis, uncomplicated
CPT/HCPCS: 94060; 94726; 94729

== ENCOUNTER 2024-03-15 16:19 | Outpatient (CLI) | payer MEDICARE, SELFPAY ==
--- NOTE | ~2024-03-15 | CT_ITS ---
EXAMINATION: CT abdomen pelvis wo con DATE: 03/15/2024 16:42 INDICATION: Dysuria, urinary tract infection TECHNIQUE: Computed tomography (CT) of the abdomen and pelvis was performed without intravenous contr ast. Automated exposure control and iterative reconstruction technique were employed. Exam dose: 659 .22 mGy-cm total exam DLP. COMPARISON: 10/15/2023 CT abdomen pelvis FINDINGS: There is peribronchial soft tissue thickening and mild patchy infiltrate and/or atelectasis lower lobes. Emphysematous changes are noted. Small sliding hiatal hernia. Heart size is within normal range. Right atrium and right ventricular pacemaker leads. No pericardial or pleural effusion. Status post ventral abdominal wall mesh repair. The gallbladder is present. No bile duct or pancreatic duct dilatation. No hepatic, splenic, pancreat ic, adrenal space-occupying mass lesion. Left renal scarring. Bilateral probable renal cysts including 2 or 3 hyperdense right renal cysts. Bilateral upper pole renal exophytic lesions, measuring 1.7 cm on the right, 1.6 cm the left, with at tenuation in the 50-60 Hounsfield unit range, indeterminate. Consider renal ultrasound or MRI for fur ther evaluation. Approximately 5.9 mm lower pole right renal nonobstructing calculus. No other urinary tract calculus or hydroureteronephrosis. Moderate diffuse thickening of the urinary bladder wall, likely due to mild relative obstruction from prostatomegaly; however the prostate is not well visualized due to the streak artifact from hip pros theses. Prominent amount of fecal material in the rectum and colon. Diverticulosis of the colon; no CT eviden ce of diverticulitis. Status post bilateral hip arthroplasty; these prosthetic devices create significant streak artifact l imiting visualization of the pelvic structures. Severe atherosclerotic calcification of the abdominal aorta, prominent celiac artery and superior sup erior mesenteric artery calcification, prominent calcification at the origins of the renal arteries. Suprarenal abdominal aorta measures up to 3.3 x 4 cm. Infrarenal abdominal aorta measures up to 3.2 x 3.5 cm. 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 Is extensive calcification of the external, internal iliac and femoral arteries. Bilateral L5 pars interarticularis defects with associated grade 1 anterolisthesis at L5-S1. Degenera tive changes of the lower thoracic spine and lumbar apophyseal joints IMPRESSION: Moderate thickening of urinary bladder wall which may be due to prostatomegaly; cannot e xclude cystitis Bilateral renal cysts Bilateral upper pole 1.6-1.7 cm cyst indeterminate exophytic lesions with attenuation in the 50-60 Ho unsfield range. 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 Reviewed, dictated and finalized at location J. IMPRESSION: Moderate thickening of urinary bladder wall which may be due to pr ostatomegaly; cannot exclude cystitis Bilateral renal cysts Bilateral upper pole 1.6-1.7 cm cyst indeterminate exophytic lesions with atten uation in the 50-60 Hounsfield range. Consider renal ultrasound or MRI for furt her evaluation Left renal scarring 5.9 mm lower pole right renal nonobstructing calculus Small sliding hiatal hernia Diverticulosis of the colon Suprarenal and infraren
== END 2024-03-15 16:20 | disposition home or self-care (01) ==
PROVIDERS: PCP Family Medicine; Visit Provider Nurse Practitioner
DX: R30.0 Dysuria (principal); N28.1 Cyst of kidney, acquired; K44.9 Diaphragmatic hernia without obstruction or gangrene; K57.30 Diverticulosis of large intestine without perforation or abscess without bleeding; I71.43 Infrarenal abdominal aortic aneurysm, without rupture
CPT/HCPCS: 74176

== ENCOUNTER 2024-03-30 13:30 | Outpatient (RCR) | payer MEDICARE, SELFPAY | END 2024-04-06 13:47 | disposition home or self-care (01) | LOC: ANHCPREHAB 13:30 | PROVIDERS: PCP Family Medicine; Visit Provider Family Medicine | DX: J44.9 Chronic obstructive pulmonary disease, unspecified (principal) | CPT/HCPCS: 94625 ==

== ENCOUNTER 2024-04-20 12:31 | Outpatient (CLI) | payer MEDICARE, SELFPAY ==
--- NOTE | 2024-04-20 13:48 | WPDSIXMINUTE ---
Six Minute Walk Procedure Procedure Performed Pulmonary Stress Test (6 min walk) Six Minute Walk Six Minute Walk: This is a 6 minute walk test. The test was performed and interpreted in accordance with the 2014 ERS/ATS task force guidelines. Of note, the patient used a wheeled walker and 2 L nasal cannula. Findings: The patient's resting 2 L nasal cannula oxygen saturation measured by pulse oximetry was 94% and heart rate was 82 bpm. Patient ambulated for 213 meters and oxygen saturation remained 91 to 92%. Heart rate at the end of the study was 103 bpm. The patient demonstrated no hypoxemia on 2 L nasal cannula at rest and with ambulation. There are no prior studies for comparison.
== END 2024-04-20 12:32 | disposition home or self-care (01) ==
PROVIDERS: PCP Family Medicine; Visit Provider Family Medicine
DX: J44.9 Chronic obstructive pulmonary disease, unspecified (principal)
CPT/HCPCS: 94618

== ENCOUNTER 2024-07-06 10:43 | Outpatient (CLI) | payer MEDICARE, SELFPAY ==
--- NOTE | ~2024-07-06 | XR_ITS ---
EXAMINATION: XR lumbar spine min 4V DATE: 07/06/2024 10:56 INDICATION: Low back pain, unspecified. TECHNIQUE: 5 views of lumbar spine were obtained. COMPARISON: CT abdomen and pelvis 03/15/2024 FINDINGS: There is 3 mm retrolisthesis of T12 on L1 and 5 mm anterolisthesis of L5 on S1. There are c hronic bilateral L5 pars defects. There is mild chronic anterior wedging of T11 and T12 vertebral bod ies. There is severely decreased disc height at T11-T12 and T12-L1 and mildly decreased disc height a t L3-L4 and L5-S1. There is multilevel facet joint osteoarthritis, severe bilaterally at L4-L5 and L5 -S1. There are changes of ventral hernia repair and bilateral hip arthroplasties. IMPRESSION: 1. Chronic bilateral L5 pars defects with grade 1 anterolisthesis of L5 on S1. 2. Severe lower thoracic spondylosis and mild lumbar spondylosis. Reviewed, dictated and finalized at location A. [facility]
== END 2024-07-06 10:44 | disposition home or self-care (01) ==
LOC: GOSHIMG 10:44
PROVIDERS: PCP Family Medicine; Visit Provider Family Medicine
DX: M47.894 Other spondylosis, thoracic region (principal); M47.896 Other spondylosis, lumbar region
CPT/HCPCS: 72110

== ENCOUNTER 2024-07-18 15:13 | Outpatient (CLI) | payer MEDICARE, SELFPAY ==
--- NOTE | ~2024-07-18 | CT_ITS ---
EXAMINATION:CT diagnostic chest wo con DATE: 07/18/2024 15:32 INDICATION: Bronchiectasis, uncomplicated. TECHNIQUE: Computed tomography (CT) of the chest was performed without intravenous contrast. Automate d exposure control and iterative reconstruction technique were employed. The dose-length product (DLP ) was 179.21 mGy-cm. COMPARISON: Chest CT 01/13/2024, CT abdomen and pelvis 09/30/21, ultrasound kidneys 02/08/22 FINDINGS: There is severe emphysema. There are scattered nodules and small airspace opacities in the upper lobes and lower lobes. There is mild bronchiectasis in the lungs with a lower lung predominance . There is mucous plugging in left lower lobe. No pleural effusion. The heart size is normal. There a re coronary artery calcifications. No pericardial effusion. There is a left chest wall pacer with sascha ds in the right atrium and right ventricle. There is calcified atherosclerosis of the aorta and many of the other arteries. There is cortical thinning of left kidney. There is a 2.3 cm mass in right kid gennaro. There is a 1.7 cm hemorrhagic cyst in left kidney There are cysts in left kidney measuring up to 1.5 cm. Bilateral fractures of the body of the sternum with nonunion. There is moderate thoracic spo ndylosis. IMPRESSION: 1. Worsened diffuse lung disease, consistent with chronic pneumonia. 2. Severe emphysema. 3. Mild bronchiectasis with a lower lung predominance. 4. 2.3 cm right kidney mass, which may be a hemorrhagic cyst or less likely renal cell carcinoma. Con hand sewer shoes abdomen CT without and with contrast. Reviewed, dictated and finalized at location A. [facility] REPAIR[facility] IMPRESSION: 1. Worsened diffuse lung disease, consistent with chronic pneumonia. 2. Severe emphysema. 3. Mild bronchiectasis with a lower lung predominance. 4. 2.3 cm right kidney mass, which may be a hemorrhagic cyst or less likely clair al cell carcinoma. Consider abdomen CT without and with contrast.
== END 2024-07-18 15:14 | disposition home or self-care (01) ==
PROVIDERS: PCP Internal Medicine; Visit Provider Internal Medicine Pulmonary Disease
DX: J47.9 Bronchiectasis, uncomplicated (principal); J43.9 Emphysema, unspecified; N28.89 Other specified disorders of kidney and ureter; A31.0 Pulmonary mycobacterial infection
CPT/HCPCS: 71250

== ENCOUNTER 2024-09-04 12:58 | Inpatient (IN) | payer MEDICARE, SELFPAY ==
[2024-09-04] VITALS (11 sets, daily range): BP systolic 147–162; BP diastolic 68–75; PULSE 71–101; RESP 16–22; TEMP 36.3–37; O2SAT 91–98; BMI 26.2
--- NOTE | ~2024-09-04 | XR_ITS ---
XR chest 2V Ordering provider: Liza Ritchie MD History: 73 years Male with . chronic pnx, sob [id number] . Comparison: October 16, 2023 FINDINGS: MEDIASTINUM: The cardiac silhouette is not enlarged. Left bipolar pacemaker. LUNGS: No effusions or pneumothorax. Minimal opacification the lung bases more on the left side. Unde rlying fibrotic changes. OTHER: No free air under the diaphragm. Degenerative changes of the spine. IMPRESSION: Bibasilar atelectasis versus pneumonia more on the left side. Reviewed, dictated and finalized at location A. E CLERK
--- NOTE | 2024-09-04 14:56 | ECG_ITS ---
Test Date: 2024-09-04 15:13:26 Measurements Intervals [place] Rate: 66 P: 75 TN: 183 QRS: 8 QRSD: 113 T: 45 QT: 390 QTc: 409 Interpretive Statements ELECTRONIC VENTRICULAR PACEMAKER No previous ECG available for comparison Electronically Signed On 09-04-2024 15:40:26 IT SECURITY SPECIALIST by Rodrigo Chaves M.D.
--- NOTE | 2024-09-04 15:14 | ED.SOB ---
HPI - SOB/Dyspnea General Chief Complaint: Shortness of Breath/Dyspnea Stated Complaint: sob x1m, chronic pnx Time Seen by Provider: 09/04/24 15:13 Source: patient Mode of arrival: ambulatory History of Present Illness HPI Narrative: 73 YEARS OLD WHITE MALE CAME TO THE ED BY PRIVATE CAR FROM HOME WITH HIS COMPLAINING OF SHORTNESS OF BREATH FOR OVER A MONTH. WAS SEEN BY DR. MAYES AND STARTED HIM ON Z-NEIL AND PREDNISONE WITHOUT IMPROVEMENT THEN STARTED HIM AGAIN ON Z-NEIL WITHOUT IMPROVEMENT. PATIENT IS TELLING ME THAT HE USUALLY HE GETS PICC LINE AND GET IV ANTIBIOTIC WHICH USUALLY IS THE ONLY WAY TO GET RID OF HIS INFECTION. PATIENT REPORTS SHORTNESS BREATH GET WORSE WITH COLD AIR EXPOSURE AND ANY PHYSICAL ACTIVITIES. HE DENIES CHEST PAIN OR FEVER OR CHILLS OR NAUSEA OR VOMITING. HISTORY OF COPD CURRENTLY ON OXYGEN 4 L AT NIGHT, 2 L DURING DAYTIME, HYPERTENSION, DEEP VEIN THROMBOSIS CURRENTLY ON PLAVIX AND XARELTO. PATIENT QUIT SMOKING 15 YEARS AGO. Related Data Home Medications ?Medication ?Instructions ?Recorded ?Confirmed ?Last Taken ?Type acetaminophen 500 mg tablet 1,000 mg PO Q6H PRN Mild Pain 06/02/21 07/06/24 Unknown History (Scale Score 1-4) pantoprazole 40 mg tablet,delayed 40 mg PO DAILY 01/11/22 07/06/24 10/14/23 History release doxepin 25 mg capsule 25 mg PO QHS PRN Sleep 05/15/22 07/06/24 05/14/22 History multivitamin (Daily Multi-Vitamin 1 tablet PO DAILY 07/12/22 07/06/24 10/14/23 History tablet) tamsulosin 0.4 mg capsule 0.8 mg PO HS 01/24/23 07/06/24 10/14/23 History atorvastatin 80 mg tablet 80 mg PO HS 03/22/23 07/06/24 Unknown History guaifenesin 400 mg tablet (Mucus 400 mg PO Q12H 06/07/23 07/06/24 Unknown History Relief) clopidogrel 75 mg tablet 75 mg PO DAILY 07/21/23 07/06/24 10/14/23 History cilostazol 50 mg tablet 50 mg PO HS 10/15/23 07/06/24 10/14/23 History cetirizine 10 mg tablet (Zyrtec) 10 mg PO DAILY PRN 11/21/23 07/06/24 Unknown History amlodipine 10 mg tablet 10 mg PO DAILY 02/02/24 07/06/24 Unknown History finasteride 5 mg tablet 5 mg PO DAILY 04/30/24 07/06/24 Unknown History Allergies Allergy/AdvReac Type Severity Reaction Status Date / Time doxycycline Allergy Unknown Nausea and Verified 09/04/24 13:06 Vomiting oxycodone AdvReac Severe severe Verified 09/04/24 13:06 constipation Review of Systems Review of Systems: All systems reviewed & are unremarkable except as noted in HPI and below PMFSH Past Medical History Medical History Impacted cerumen of right ear Vertigo Colon cancer screening Pseudomonas respiratory infection Femoral artery stenosis, left Heart failure with preserved ejection fraction Echocardiogram in November 2021 showed normal LV size and function with an EF measured at 66% and impaired diastolic relaxation. Chronic anemia Urethral stricture Empyema of left pleural space (05/2021) Pleural fluid grew out strep intermedius and staph hominis. Status post thoracotomy with decortication. Benign prostatic hyperplasia Chronic anemia Peripheral vascular disease Status post right carotid endarterectomy. Status post left lower extremity stent. COVID-19 (04/2020) AV block Status post Medtronic pacemaker placement. Chronic kidney disease, stage 3 Psoriasis Eczema Gastroesophageal reflux disease COPD with emphysema Loculated empyema Obstructive sleep apnea On 2 L nasal cannula at nighttime. Hypertension Arthritis Surgical History Surgical History History of dilation of urethra History of thoracotomy (05/2021) Left thoracotomy with decortication for empyema. History of right-sided carotid endarterectomy History of tonsillectomy Status post peripheral artery angioplasty with insertion of stent Left lower extremity. Status post placement of cardiac pacemaker (06/2020) History of hip replacement Bilaterally with revision History of herniorrhaphy Family History Family History Father Heart disease Heart attack Hypertension Cerebrovascular accident Mother Diabetes mellitus Hypertension Asthma Heart disease Sibling Hypertension Social History Social History Social History: The patient currently lives in [place] with his sister. He is and has 3 children and moved to the area from [place], [place] within the last year. 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 Former smoker (2 packs a day for 40 years), quit in 2009. No alcohol or illicit substance abuse. He designates his sister Michelle Schroeder as his surrogate decision maker and he wishes to be a full code. Caffeine-daily Smoking packs per day: 2 Smoking cigarettes per day: 40.0 Years smoked: 40 Smoking pack-years: 80.00 Smoking status: Former smoker Tobacco type: cigarettes Second hand tobacco smoke exposure: Yes Smoking end date: 08/22/09 Alcohol intake: never Alcohol use details: rarely Substance use: never Substance use type: does not use Do You Feel Safe in your Home?: Yes Lack of Transportation: No Lack of Food: Never True Current Housing: I Have Housing Concerned About Future Housing: No Difficulty Paying Gas/Electric Bills: No Difficulty Paying for Meds: No Currently Unemployed: No Education: Bachelor's Degree Difficulty w/ Childcare or Family Care: No Living arrangements: alone Occupation/Education: retired Gender identity (if verbalized by the patient): Male Spiritual care concerns: No Agree to blood products: Yes Exam Narrative: GENERAL APPEARANCE: WELL-DEVELOPED, WELL-NOURISHED SKIN: NORMAL COLOR HEAD: NORMOCEPHALIC, NONTRAUMATIC EYES: CLEAR CONJUNCTIVA ENT: OROPHARYNX NORMAL, EARS NORMAL, NOSE NORMAL NECK: SUPPLE, NONTENDER CHEST AND RESPIRATORY: AIRWAY PATENT, NO RESPIRATORY DISTRESS, NO ACCESSORY MUSCLE USE, DIMINUTION OF AIR ENTRY BILATERALLY HEART: REGULAR RATE/RHYTHM ABDOMEN: SOFT, NONTENDER, NO ORGANOMEGALY, QUIET BOWEL SOUNDS VASCULAR: NORMAL PERIPHERAL PULSES, NORMAL CAPILLARY REFILL. MUSCULOSKELETAL: NORMAL RANGE OF MOTION, NONTENDER BACK NEUROLOGIC: ALERT AND ORIENTED ?3, EVENT PLANNER IS NORMAL TESTED, NO GROSS MOTOR DEFICIT Course Consultations Consultation #1: DR MONIQUE Date: 09/04/24 Time: 16:42 Vital Signs Vital signs: Vital Signs Temperature 36.3 C L 09/04/24 13:00 Pulse Rate 101 H 09/04/24 13:00 Respiratory Rate 22 H 09/04/24 13:00 Blood Pressure 147/69 H 09/04/24 13:00 Pulse Oximetry 97 09/04/24 13:00 Oxygen Delivery Nasal Cannula 09/04/24 13:00 Oxygen Flow Rate 2 09/04/24 13:00 Temperature 36.3 C L 09/04/24 13:00 Pulse Rate 80 09/04/24 17:05 Respiratory Rate 16 09/04/24 17:05 Blood Pressure 160/75 H 09/04/24 17:05 Pulse Oximetry 96 09/04/24 17:05 Oxygen Delivery Nasal Cannula 09/04/24 16:01 Oxygen Flow Rate 2 09/04/24 16:01 MDM - SOB/Dyspnea MDM Narrative Medical decision making narrative: PATIENT CAME TO THE ED WITH SHORTNESS OF BREATH VITAL SIGNS SHOWING HEART RATE OF 101, RESPIRATION 22 OTHERWISE INSIGNIFICANT PHYSICAL EXAMINATION SHOWING A COMFORTABLE PATIENT ON OXYGEN BY NASAL CANNULA, FEELING OKAY AT THIS TIME. DIFFERENTIAL DIAGNOSIS INCLUDES COPD EXACERBATION, PNEUMONIA, CONGESTIVE HEART FAILURE, CORONARY ARTERY DISEASE BLOOD WORKUP TODAY INCLUDES CBC, CMP, TROPONIN, BNP, BLOOD CULTURE AND LACTIC ACID SHOWED WBC OF 7.9, HEMOGLOBIN 10.5, BNP 893, CREATININE OF 1.7 OTHERWISE INSIGNIFICANT CHEST X-RAY SHOWED ATELECTASIS VERSUS PNEUMONIA BLOOD GAS ON 2 L SHOWED PH 7.4, OX SATURATION AT 95.5. ACCORDING TO PATIENT OLD RECORDS THAT HIS SPUTUM WAS POSITIVE FOR PSEUDOMONAS WHICH IS SENSITIVE TO MEROPENEM. ADMIT TO HOSPITALIST, CONSULT DR. MONIQUE Differential Diagnosis Differential diagnosis: Likely other ( ABOVE) Medical Records Attestation: I reviewed the patient's medical records. Lab Data Attestation: I reviewed the patient's lab results. 09/04/24 15:03 09/04/24 15:03 Labs: Lab Results 09/04/24 09/04/24 09/04/24 Range/Units 15:03 15:24 16:48 WBC 7.9 (4.5-10.0) K/mm3 RBC 4.34 L (4.6-6.20) M/mm3 Hgb 10.5 L (14.0-18.0) g/dL Hct 38.3 L (42.0-52.0) % MCV 88.2 (80-100) fl MCH 24.2 L (26-34) pg MCHC 27.4 L (32-36) g/dl RDW 16.7 H (11.5-14.5) % Plt Count 246 (150-375) k/mm3 MPV 9.7 (7.4-10.4) fl Immature Gran % (Auto) 0.3 (0-0.5) % Neut % (Auto) 76.5 H (45.5-73.1) % Lymph % (Auto) 11.3 L (18.3-44.2) % [place] % (Auto) 6.1 (2.6-8.5) % Eos % (Auto) 5.4 H (0-4.4) % Baso % (Auto) 0.4 (0.2-1.2) % Lymph # (Auto) 0.89 L (0.9-3.2) K/mm3 [place] # (Auto) 0.5 (0.1-0.6) K/mm3 Eos # (Auto) 0.4 H (0-0.3) K/mm3 Baso # (Auto) 0.0 (0.0-0.1) K/mm3 Abs Immat Gran (auto) 0.02 (0.00-0.031) K/mm3 Absolute Neuts (auto) 6.0 (1.3-6.7) K/mm3 Absolute Nucleated RBC 0.000 (0.0-0.012) K/mm3 Nucleated RBC % 0.0 (0.0-0.2) % Platelet Estimate Adequate (Adequate) Hypochromasia 2+ Anisocytosis 1+ Ovalocytes 1+ Schistocytes None seen PT 14.2 (11.1-14.7) Seconds INR 1.1 APTT 35.0 (22.3-36.8) Seconds Sodium 143 (137-145) mmol/L Potassium 4.7 (3.4-5.0) mmol/L Chloride 99 (98-107) mmol/L Carbon Dioxide 35 H (22-30) mmol/L Anion Gap 9 (4-12) mmol/L BUN 32 H (9-20) mg/dL Creatinine 1.75 H (0.7-1.3) mg/dL Estim Creat Clear Calc Not Reportable Estimated GFR 39 L (59 - ) Glucose 97 (65-110) mg/dL Lactic Acid 1.0 (0.7-2.0) mmol/L Calcium 9.0 (8.4-10.2) mg/dL Total Bilirubin 0.5 (0.2-1.3) mg/dL AST 18 (17-59) U/L ALT 11 (6-50) U/L Alkaline Phosphatase 125 (38-126) U/L Troponin I < 0.012 (0.000-0.034) ng/mL C-Reactive Protein < 0.5 (<1.0) mg/dL NT-Pro-B Natriuret Pep 893 H (19.9-100) pg/mL Total Protein 7.0 (6.3-8.2) g/dL Albumin 3.8 (3.5-5.1) g/dL Influenza A (RT-PCR) Negative (Negative) Influenza B (RT-PCR) Negative (Negative) RSV (RT-PCR) Negative (Negative) SARS-CoV-2 RNA (RT-PCR) Negative (Negative) ABG Data ABG results: 09/04/24 15:24 Puncture Site Right radial ABG pH 7.471 H ABG pCO2 49.3 H ABG pO2 74.2 L ABG PO2/FiO2 Ratio 2.65 ABG HCO3 35.2 H ABG O2 Saturation 95.5 ABG O2 Content 14.3 L ABG Base Excess 10.2 A-a Gradient 67.3 Oxyhemoglobin 94.7 Total Hemoglobin 10.7 L O2 Delivery Device Nasal cannula O2 Liters/Min 2.0 FiO2 28 Attestation: I personally reviewed and interpreted this ABG as follows: Interpretation: PH 7.4, PCO2 49.3, PO2 74.2, BICARB 35.2, SATURATION ON 2 L 95.5 % Imaging Data Radiologist's impression: Impressions Chest X-Ray 09/04/24 13:30 IMPRESSION: Bibasilar atelectasis versus pneumonia more on the left side. ECG Data EKG #1: Attestation: I personally reviewed and interpreted this ECG as follows: ECG completion date: 09/04/24 Interpretation: ELECTRONIC VENTRICULAR PACEMAKER, NO PREVIOUS EKG AVAILABLE FOR COMPARISON Discharge Plan Discharge Clinical Impression: Pneumonia, COPD exacerbation Patient Disposition: Still a Patient Condition: Stable Additional Instructions: ADMIT TO HOSPITALIST Patient Language: Malawian Prescriptions: No Action guaifenesin [Mucus Relief] 400 mg tablet 400 mg PO Q12H clopidogrel 75 mg tablet 75 mg PO DAILY cetirizine [Zyrtec] 10 mg tablet 10 mg PO DAILY PRN tiotropium-olodaterol 2.5-2.5 mcg/actuation mist 2 puff inhalation DAILY Qty: 4 6RF pantoprazole 40 mg tablet,delayed release (DR/EC) 40 mg PO DAILY multivitamin [Daily Multi-Vitamin] Tablet 1 tablet PO DAILY amlodipine 10 mg tablet 10 mg PO DAILY finasteride 5 mg tablet 5 mg PO DAILY cyclobenzaprine 10 mg tablet 10 mg PO TID PRN (Reason: muscle spasm) Qty: 30 0RF tamsulosin 0.4 mg capsule 0.8 mg PO HS cilostazol 50 mg tablet 50 mg PO HS acetaminophen 500 mg Tablet 1,000 mg PO Q6H PRN (Reason: Mild Pain (Scale Score 1-4)) Patient Comments: usually once a day doxepin 25 mg capsule 25 mg PO QHS PRN (Reason: Sleep) atorvastatin 80 mg tablet 80 mg PO HS Dupixent Syringe 300 mg/2 mL syringe 300 mg subcut .COMPLEX Qty: 4 10RF Rx Instructions: 300 mg subcut 1 every 14 days; for rash on the and 15th of every month triamcinolone acetonide 0.1 % ointment 1 applic topical PRN PRN (Reason: Rash) Qty: 80 0RF Rx Instructions: apply to rash on elbows gabapentin 300 mg capsule 300 mg PO HS PRN (Reason: Pain) Qty: 100 1RF Patient Comments: TAKES EVERY NIGHT furosemide 40 mg tablet 40 mg PO QAM Qty: 90 1RF carvedilol 25 mg tablet See Rx Instructions .ROUTE .COMPLEX Qty: 200 1RF Dose Instruction: TAKE 1 TABLET BY MOUTH EVERY 12 HOURS Rx Instructions: TAKE 1 TABLET BY MOUTH EVERY 12 HOURS tramadol 50 mg tablet 50 mg PO Q6H PRN (Reason: Moderate Pain (Scale Score 5-6)) Qty: 60 0RF potassium chloride 10 mEq capsule, extended release 10 meq PO DAILY Qty: 100 1RF albuterol sulfate 2.5 mg /3 mL (0.083 %) solution for nebulization 2.5 mg inhalation Q4-6H PRN (Reason: SOB) Qty: 180 6RF azithromycin 250 mg tablet See Rx Instructions PO .COMPLEX Qty: 6 0RF Rx Instructions: take 500 mg today (day 1), then 250 mg for 4 days (days 2-5) PO Follow-up/Referrals: Ilir Stover, [Primary Care Provider] -
[2024-09-04 15:16] LABS: Basophils Percent Auto 0.4 % (0.2-1.2); Eosinophils Absolute Auto 0.4 K/mm3 (0-0.3); Eosinophils Percent Auto 5.4 % (0-4.4); Hematocrit 38.3 % (42.0-52.0); Hemoglobin 10.5 g/dL (14.0-18.0); Immature Granulocyte Absolute 0.02 K/mm3 (0.00-0.031); Immature Granulocyte Percent A 0.3 % (0-0.5); Lymphocytes Absolute Auto 0.89 K/mm3 (0.9-3.2); Lymphocytes Percent Auto 11.3 % (18.3-44.2); Mean Corpuscular HGB Conc 27.4 g/dl (32-36); Mean Corpuscular Hemoglobin 24.2 pg (26-34); Mean Corpuscular Volume 88.2 fl (80-100); Mean Platelet Volume 9.7 fl (7.4-10.4); Monocytes Absolute Auto 0.5 K/mm3 (0.1-0.6); Monocytes Percent Auto 6.1 % (2.6-8.5); Neutrophils Percent Auto 76.5 % (45.5-73.1); Platelet Count Result 246 k/mm3 (150-375); Red Blood Count 4.34 M/mm3 (4.6-6.20); Red Cell Distribution Width 16.7 % (11.5-14.5); White Blood Count 7.9 K/mm3 (4.5-10.0)
[2024-09-04 15:27] LABS: Anisocytosis 1+; Hypochromasia 2+; Ovalocytes 1+; Platelet Estimate Adequate (Adequate); Schistocytes None Seen
[2024-09-04 15:28] LABS: Alanine Aminotransferase 11 U/L (6-50); Albumin Level 3.8 g/dL (3.5-5.1); Alkaline Phosphatase 125 U/L (38-126); Aspartate Amino Transferase 18 U/L (17-59); Bilirubin,Total 0.5 mg/dL (0.2-1.3); Blood Urea Nitrogen 32 mg/dL (9-20); Chloride 99 mmol/L (98-107); Estimated Glomerular Filt Rate 39; Glucose 97 mg/dL (65-110); Potassium 4.7 mmol/L (3.4-5.0); Sodium 143 mmol/L (137-145)
[2024-09-04 15:30] LABS: Alveolar/Arterial O2 Gradient 67.3 mmHg; Base Excess ABG 10.2 mEq/l (+/-2.0); Fractional Inspired Oxygen 28 %; HCO3 ABG 35.2 mEq/l (22.0-26.0); Oxygen Content ABG 14.3 %vol (16.0-22.0); Oxygen Saturation ABG 95.5 % (95.0-100.0); Oxyhemoglobin 94.7 % THb (90.0-100.0); PCO2 ABG 49.3 mmHg (35.0-45.0); PO2 ABG 74.2 mmHg (80.0-100.0); PO2 FiO2 Ratio Arterial Blood 2.65 %; Total Hemoglobin 10.7 g/dL (12.0-18.0); pH ABG 7.471 (7.350-7.450)
[2024-09-04 15:32] LABS: Site Drawn RIGHT RADIAL
[2024-09-04 15:33] LABS: Device NASAL CANNULA; Modified Allen's Test Pass
[2024-09-04 15:37] LABS: INR 1.1; Prothrombin Time 14.2 Seconds (11.1-14.7)
[2024-09-04 15:43] LABS: NT Pro B Type Natriuretic Pept 893 pg/mL (19.9-100); Troponin I < 0.012 ng/mL (0.000-0.034)
[2024-09-04] MEDS: LEVALBUTEROL NEB 1.25 MG/3 ML 2.5 MG INHALATION (15:58)
[2024-09-04 16:08] LABS: Influenza A QL RT-PCR Negative (Negative); Influenza B QL RT-PCR Negative (Negative); RSV RNA, RT-PCR Negative (Negative); SARS-CoV-2 RNA PCR Negative (Negative)
[2024-09-04 16:21] LABS: Anion Gap 9 mmol/L (4-12); Carbon Dioxide 35 mmol/L (22-30)
[2024-09-04] MEDS: levoFLOXacin 750 MG/D5W 150 ML 750 MG/150 ML BAG 100 MG IVPB (16:57)
[2024-09-04] MEDS: methylPREDNISolone SOD SUCC 125 MG VIAL IV PUSH (16:58)
[2024-09-04 17:07] LABS: CRP < 0.5 mg/dL (<1.0)
--- NOTE | 2024-09-04 18:45 | PM.IMHP ---
H&P: HPI History of Present Illness Date/Time: 09/04/24 18:45 Chief Complaint: Shortness of breath. Narrative: This is a very pleasant 73-year-old male with history of chronic respiratory failure with hypoxia on home oxygen, chronic obstructive pulmonary disease, bronchiectasis, Mycobacterium kansasii infection, multidrug resistant Pseudomonas aeruginosa on previous sputum culture, empyema status post thoracotomy and decortication, coronary artery disease, hypertension, hyperlipidemia, peripheral vascular disease, chronic kidney disease, and other comorbidities who presented to the emergency department via private vehicle for evaluation of shortness of breath. The patient provides the following history. He gives a 1 month history of worsening shortness of breath from baseline and at [facility] he was exposed to his daughter who had an upper respiratory tract infection. Shortly thereafter he had an increase in phlegm production and worsening cough for which she was prescribed a Z-Danilo and a short course of steroids. He felt better for only a few days and was placed on another Z-Danilo. Unfortunately he does not notice any improvement and he continues to feel poorly. He is getting short of breath when walking from the bedroom to the kitchen. He has to stop frequently to cough and catch his breath. Cough is productive of yellowish-green sputum. He also endorses subjective fever and night sweats. Appetite has been fair. He has occasional loose stools which is not unusual for him with antibiotics. He denies documented fever, sore throat, chest pain, pleuritic pain, nausea, vomiting, edema, calf pain, and hemoptysis. Of note he has an upcoming appointment with the Infectious Disease Clinic at [facility] for his history Mycobacterium kansasii infection. In the ED: He was afebrile on arrival with stable vital signs. SpO2 has been in the mid 90s on his usual 2 L. Labs were significant for WBC count of 7.9, hemoglobin 10.5, BUN 32, creatinine 1.75, troponin less than 0.012, CRP less than 0.5, proBNP 893. He tested negative for influenza, RSV, and COVID. Chest x-ray showed bibasilar atelectasis versus pneumonia, more on the left. ED physician spoke with the on-call oil analyst who recommended admission for IV antibiotics due to his history. He received levofloxacin 750 mg however given history of fluoroquinolone resistant Pseudomonas aeruginosa in sputum, that was changed to meropenem and he has also been started on azithromycin given history of mycobacterium. [facility] Past Medical History Medical History Coronary artery disease severe single vessel coronary artery disease with chronic total occlusion of the proximal RCA with [id number] collaterals Chronic kidney disease, stage 4 (severe) Chronic respiratory failure with hypoxia, on home oxygen therapy Pseudomonas respiratory infection Femoral artery stenosis, left Heart failure with preserved ejection fraction echocardiogram in November 2021 showed normal LV size and function with an EF measured at 66% and impaired diastolic relaxation Chronic anemia Urethral stricture Empyema of left pleural space (05/2021) Pleural fluid grew out strep intermedius and staph hominis. Status post thoracotomy with decortication. Benign prostatic hyperplasia Peripheral vascular disease Status post right carotid endarterectomy. Status post left lower extremity stent. COVID-19 (04/2020) AV block status post [employer] pacemaker placement Chronic kidney disease, stage 3 Psoriasis Eczema Gastroesophageal reflux disease COPD with emphysema Loculated empyema Obstructive sleep apnea On 2 L nasal cannula at nighttime Hypertension Arthritis Surgical History Surgical History History of cardiac catheterization (01/2024) severe single vessel coronary artery disease with chronic total occlusion of the proximal RCA with [id number] collaterals History of dilation of urethra History of thoracotomy (05/2021) Left thoracotomy with decortication for empyema. History of right-sided carotid endarterectomy History of tonsillectomy Status post peripheral artery angioplasty with insertion of stent Left lower extremity. Status post placement of cardiac pacemaker (06/2020) History of hip replacement Bilaterally with revision History of herniorrhaphy Family History Family History Father Heart disease Heart attack Hypertension Cerebrovascular accident Mother Diabetes mellitus Hypertension Asthma Heart disease Sibling Hypertension Social History Social History (Updated 09/04/24 @ 19:10 by Na De Santiago PA-C) Social History: Surrogate medical decision maker: sister Bullock. Code status: Full code. Smoking packs per day: 2 Smoking cigarettes per day: 40.0 Years smoked: 40 Smoking pack-years: 80.00 Smoking status: Former smoker Tobacco type: cigarettes Second hand tobacco smoke exposure: Yes Smoking end date: 08/22/09 Alcohol intake: never Alcohol use details: rarely Substance use: never Substance use type: does not use Do You Feel Safe in your Home?: Yes Lack of Transportation: No Lack of Food: Never True Current Housing: I Have Housing Concerned About Future Housing: No Difficulty Paying Gas/Electric Bills: No Difficulty Paying for Meds: No Currently Unemployed: No Education: Bachelor's Degree Difficulty w/ Childcare or Family Care: No Living arrangements: alone Additional living arrangements comments: . He has 3 children. 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 Spiritual care concerns: No Agree to blood products: Yes Meds Home Medications and Allergies Home Medications ?Medication ?Instructions ?Recorded ?Confirmed ?Type acetaminophen 500 mg tablet 1,000 mg PO Q6H PRN Mild Pain 06/02/21 07/06/24 History (Scale Score 1-4) pantoprazole 40 mg tablet,delayed 40 mg PO DAILY 01/11/22 07/06/24 History release doxepin 25 mg capsule 25 mg PO QHS PRN Sleep 05/15/22 07/06/24 History multivitamin (Daily Multi-Vitamin 1 tablet PO DAILY 07/12/22 07/06/24 History tablet) dupilumab 300 mg/2 mL subcutaneous 300 mg (2 mL) subcut .COMPLEX #4 mL 11/25/22 07/06/24 Rx syringe (Dupixent) tamsulosin 0.4 mg capsule 0.8 mg PO HS 01/24/23 07/06/24 History atorvastatin 80 mg tablet 80 mg PO HS 03/22/23 07/06/24 History guaifenesin 400 mg tablet (Mucus 400 mg PO Q12H 06/07/23 07/06/24 History Relief) clopidogrel 75 mg tablet 75 mg PO DAILY 07/21/23 07/06/24 History triamcinolone acetonide 0.1 % 1 applic topical PRN PRN Rash #80 09/01/23 07/06/24 Rx topical ointment grams cilostazol 50 mg tablet 50 mg PO HS 10/15/23 07/06/24 History cetirizine 10 mg tablet (Zyrtec) 10 mg PO DAILY PRN 11/21/23 07/06/24 History amlodipine 10 mg tablet 10 mg PO DAILY 02/02/24 07/06/24 History gabapentin 300 mg capsule 300 mg PO HS PRN Pain #100 caps 03/07/24 07/06/24 Rx finasteride 5 mg tablet 5 mg PO DAILY 04/30/24 07/06/24 History tiotropium 2.5 mcg-olodaterol 2.5 2 puff inhalation DAILY #4 grams 06/07/24 07/06/24 Rx mcg/actuation mist for inhalation furosemide 40 mg tablet 40 mg PO QAM #90 tabs 06/08/24 07/06/24 Rx carvedilol 25 mg tablet See Rx Instructions .Route 06/13/24 07/06/24 Rx .COMPLEX #200 tabs cyclobenzaprine 10 mg tablet 10 mg PO TID PRN muscle spasm #30 07/06/24 07/06/24 Rx tabs tramadol 50 mg tablet 50 mg PO Q6H PRN Moderate Pain 07/09/24 Rx (Scale Score 5-6) #60 tabs potassium chloride 10 mEq 10 meq PO DAILY #100 caps 07/23/24 Rx capsule,extended release albuterol sulfate 2.5 mg/3 mL 2.5 mg (3 mL) inhalation Q4-6H PRN 08/28/24 Rx (0.083 %) solution for nebulization SOB #180 mL azithromycin 250 mg tablet See Rx Instructions PO .COMPLEX #6 08/28/24 Rx tabs Allergies Allergy/AdvReac Type Severity Reaction Status Date / Time doxycycline Allergy Unknown Nausea and Verified 09/04/24 13:06 Vomiting oxycodone AdvReac Severe severe Verified 09/04/24 13:06 constipation Vital Signs Vital Signs - 24 hr 09/04/24 13:00 09/04/24 13:00 09/04/24 15:16 Temperature 97.3 F L Pulse Rate 101 H 75 Respiratory Rate 22 H 22 H Blood Pressure 147/69 H 153/72 H Pulse Oximetry 97 97 98 Oxygen Delivery Nasal Cannula Nasal Cannula Oxygen Flow Rate 2 2 09/04/24 15:18 09/04/24 16:01 09/04/24 16:01 Temperature Pulse Rate 71 Respiratory Rate 20 Blood Pressure Pulse Oximetry 97 97 Oxygen Delivery Nasal Cannula Nasal Cannula Oxygen Flow Rate 2 2 09/04/24 16:08 09/04/24 17:05 Temperature Pulse Rate 74 80 Respiratory Rate 20 16 Blood Pressure 160/75 H Pulse Oximetry 96 Oxygen Delivery Oxygen Flow Rate Exam Narrative: General: Well-developed, nontoxic-appearing gentleman sitting up in bed in no acute distress. Weight: 70.2 kg. BMI: 26.2. HEENT: PERRL, EOMI. Sclera anicteric. Oral mucosa moist. Neck: Supple. No JVD or lymphadenopathy. Respiratory: Respirations are nonlabored and he is speaking in full sentences. Lung sounds are diminished and a bit coarse at the bases. Occasional squeaks at the right base with scattered rales. Mild expiratory wheezing. Cardiovascular: Regular rate and rhythm with S1-S2. Gastrointestinal: Abdomen is soft, nontender, and nondistended with positive bowel sounds. Skin: Warm and dry. No rash or lesions on limited exam. Extremities: No cyanosis, clubbing, or significant edema. Radial and pedal pulses intact. Neurological: Alert. Cranial nerves 2-12 are grossly intact. No gross focal deficits to casual conversation. Psychiatric: Pleasant and cooperative with normal mood and affect. Judgment and insight intact. H&P: Results Labs Labs: Short CBC 09/04/24 Range/Units 15:03 WBC 7.9 (4.5-10.0) K/mm3 Hgb 10.5 L (14.0-18.0) g/dL Hct 38.3 L (42.0-52.0) % Plt Count 246 (150-375) k/mm3 BMP 09/04/24 15:03 Sodium 143 Potassium 4.7 Chloride 99 Carbon Dioxide 35 H BUN 32 H Creatinine 1.75 H Glucose 97 Calcium 9.0 Cardiac Enzymes 09/04/24 Range/Units 15:03 Troponin I < 0.012 (0.000-0.034) ng/mL Liver Function 09/04/24 Range/Units 15:03 Total Bilirubin 0.5 (0.2-1.3) mg/dL AST 18 (17-59) U/L ALT 11 (6-50) U/L Alkaline Phosphatase 125 (38-126) U/L Albumin 3.8 (3.5-5.1) g/dL Imaging Chest X-Ray 09/04/24 13:30 IMPRESSION: Bibasilar atelectasis versus pneumonia more on the left side. Assessment and Plan Assessment and plan (1) Pneumonia: Code(s): J18.9 - Pneumonia, unspecified organism Status: Acute (2) Bronchiectasis: Code(s): J47.9 - Bronchiectasis, uncomplicated Status: Acute (3) COPD with emphysema: Qualifiers: Emphysema type: unspecified Qualified Code(s): J43.9 - Emphysema, unspecified Code(s): J43.9 - Emphysema, unspecified Status: Acute (4) Chronic respiratory failure with hypoxia, on home oxygen therapy: Code(s): J96.11 - Chronic respiratory failure with hypoxia; Z99.81 - Dependence on supplemental oxygen Status: Acute (5) Obstructive sleep apnea: Code(s): G47.33 - Obstructive sleep apnea (adult) (pediatric) Status: Chronic (6) Coronary artery disease: Code(s): I25.10 - Atherosclerotic heart disease of [place] coronary artery without angina pectoris Status: Acute Plan The patient presented to the emergency department for evaluation of shortness of breath and productive cough as detailed in HPI. Labs, imaging, EKG, and all reports were personally reviewed. He has completed 2 courses of azithromycin and a short round of steroids without much improvement. He was told to come to the ED today given history of mycobacterium kansasii and Pseudomonas aeruginosa infections. Chest x-ray shows findings of possible pneumonia and he has been started on azithromycin and meropenem. Sputum cultures and AFB cultures and smears ordered. Cornet and Mucinex ordered to help mobilize secretions. Continue scheduled bronchodilators. Hold on scheduling further steroids pending pulmonology input. Creatinine is stable on review of previous labs. He has not had any episodes of chest pain. His home medications will be reviewed and resumed as appropriate. Findings and treatment plan were discussed with the patient. Questions were solicited and answered to satisfaction. The patient's medical management will be taken over by the hospitalist team in a.m. Quality VTE Prophylaxis VTE prophylaxis: pharmacologic ordered Hospitalist [facility] Advance Care Plan I have confirmed that the patient's Advanced Care Plan is present, code status is documented, or surrogate decision maker is listed in patient medical record.: Yes Medication Reconciliation I have utilized all available resources to obtain, update and review the patients current medications (includes all prescriptions, OTC, herbals, cannabis, and nutritional supplements).: Yes
--- NOTE | 2024-09-04 19:17 | PC.NURSE ---
Patient arrived to unit from ER at 1850. Patient stating he feels very short of breath and is requesting a breathing treatment. This RN called respiratory therapy and spoke with Luci to give 2000 breathing treatment at 1900. Respiratory therapist stated that she would come up and give breathing treatment to patient.
[2024-09-04] MEDS: IPRATROPIUM 0.5 MG/ALBUTEROL SULFATE 2.5 MG AMPUL.NEB 3 ML INHALATION (19:33)
[2024-09-04] MEDS: MEROPENEM 1 GM/NS 100 ML 1 GM/100 ML BAG IVPB (21:08)
[2024-09-04] MEDS: AZITHROMYCIN 500 MG/NS 250 ML 500 MG/250 ML BAG 250 MG IVPB (21:09)
[2024-09-04] MEDS: guaiFENesin 12 HR 600 MG TABCR 1200 MG PO (21:09)
--- NOTE | 2024-09-04 21:39 | ADMGEN ---
This patient, Freddy Hill, was admitted to Medical Room 346-01. Patient/family oriented to hospital policies and general routines including ID bracelet, bed and alarms, visiting hours, pain management, procedures, bathroom and other care routines, personal items, smoking policy, room service/diet, and visiting hours. Information on how to activate the Rapid Response Team has been discussed. Patient/Family are encouraged to report perceived risks to care and to ask questions if they do not understand what they are told or what they should do.
[2024-09-04 23:06] LABS: MRSA (PCR) NOT DETECTED (NOT DETECTE)
[2024-09-05] VITALS (14 sets, daily range): BP systolic 136–168; BP diastolic 77–82; PULSE 73–93; RESP 19–20; TEMP 36.2–36.7; O2SAT 95–98; BMI 26.2
[2024-09-05] MEDS: IPRATROPIUM 0.5 MG/ALBUTEROL SULFATE 2.5 MG AMPUL.NEB 3 ML INHALATION ×4 (03:33→20:14)
[2024-09-05 06:03] LABS: Hemoglobin 9.4 g/dL (14.0-18.0); Mean Corpuscular HGB Conc 28.5 g/dl (32-36); Mean Corpuscular Hemoglobin 24.4 pg (26-34); Mean Corpuscular Volume 85.7 fl (80-100); Platelet Count Result 218 k/mm3 (150-375); Red Blood Count 3.85 M/mm3 (4.6-6.20); Red Cell Distribution Width 16.5 % (11.5-14.5); White Blood Count 4.8 K/mm3 (4.5-10.0)
[2024-09-05 06:13] LABS: Anion Gap 7 mmol/L (4-12); Blood Urea Nitrogen 32 mg/dL (9-20); Calcium 8.3 mg/dL (8.4-10.2); Carbon Dioxide 35 mmol/L (22-30); Chloride 99 mmol/L (98-107); Estimated CRCL calculation 30 ml/min; Estimated Glomerular Filt Rate 34; Glucose 172 mg/dL (65-110); Potassium 4.2 mmol/L (3.4-5.0); Sodium 141 mmol/L (137-145)
[2024-09-05] MEDS: guaiFENesin 12 HR 600 MG TABCR 1200 MG PO ×2 (08:52→20:31)
[2024-09-05] MEDS: ENOXAPARIN 40 MG/0.4 ML SYRINGE SUB-Q (08:52)
[2024-09-05] MEDS: MEROPENEM 1 GM/NS 100 ML 1 GM/100 ML BAG IVPB ×2 (09:21→20:32)
--- NOTE | 2024-09-05 13:47 | PM.IMPN ---
Progress Note: A&P Assessment and Plan (1) Pneumonia: Code(s): J18.9 - Pneumonia, unspecified organism Status: Acute (2) Bronchiectasis: Code(s): J47.9 - Bronchiectasis, uncomplicated Status: Acute (3) COPD with emphysema: Qualifiers: Emphysema type: unspecified Qualified Code(s): J43.9 - Emphysema, unspecified Code(s): J43.9 - Emphysema, unspecified Status: Acute (4) Chronic respiratory failure with hypoxia, on home oxygen therapy: Code(s): J96.11 - Chronic respiratory failure with hypoxia; Z99.81 - Dependence on supplemental oxygen Status: Acute (5) Obstructive sleep apnea: Code(s): G47.33 - Obstructive sleep apnea (adult) (pediatric) Status: Chronic (6) Coronary artery disease: Code(s): I25.10 - Atherosclerotic heart disease of [place] coronary artery without angina pectoris Status: Acute Plan The patient presented to the emergency department for evaluation of shortness of breath and productive cough as detailed in HPI. Labs, imaging, EKG, and all reports were personally reviewed. He has completed 2 courses of azithromycin and a short round of steroids without much improvement. He was told to come to the ED today given history of mycobacterium kansasii and Pseudomonas aeruginosa infections. Chest x-ray shows findings of possible pneumonia and he has been started on azithromycin and meropenem. Sputum cultures and AFB cultures and smears ordered. Cornet and Mucinex ordered to help mobilize secretions. Continue scheduled bronchodilators. Hold on scheduling further steroids pending pulmonology input. Creatinine is stable on review of previous labs. He has not had any episodes of chest pain. His home medications will be reviewed and resumed as appropriate. Findings and treatment plan were discussed with the patient. Questions were solicited and answered to satisfaction. The patient's medical management will be taken over by the hospitalist team in a.m. PNA Vital signs improved and stable Hx of Sputum culture positive for Mycobacterium kansasii infection on 02/06/2024 Started on Meropenem and azithromycin monitor cultures MRSA negative encourage oral intake Pulmonology following Subjective Date/time seen: 09/05/24 13:47 Interval history: Patient lives by himself and uses cane for his mobility. Patient uses home oxygen usually during the daytime when he walks around uses 2 L and during the nighttime 4 L. Patient was a previous smoker and smokes to PPD. Patient follows up with Dr. Landeros has an outpatient. He reports having sputum culture at [facility] and it was positive Mycobacterium kansasii infection. He has an appointment on September 18 with ID specialist over there. In the eman time he was not able to breathe well at home even for short distance and seek medical care. Exam Narrative: General: Well-developed, nontoxic-appearing gentleman sitting up in bed in no acute distress. Weight: 70.2 kg. BMI: 26.2. HEENT: PERRL, EOMI. Sclera anicteric. Oral mucosa moist. Neck: Supple. No JVD or lymphadenopathy. Respiratory: Respirations are nonlabored and he is speaking in full sentences. Lung sounds are diminished and a bit coarse at the bases. Occasional squeaks at the right base with scattered rales. Mild expiratory wheezing. Cardiovascular: Regular rate and rhythm with S1-S2. Gastrointestinal: Abdomen is soft, nontender, and nondistended with positive bowel sounds. Skin: Warm and dry. No rash or lesions on limited exam. Extremities: No cyanosis, clubbing, or significant edema. Radial and pedal pulses intact. Neurological: Alert. Cranial nerves 2-12 are grossly intact. No gross focal deficits to casual conversation. Psychiatric: Pleasant and cooperative with normal mood and affect. Judgment and insight intact. Objective Data Vital Signs Vital Signs: Vital Signs - 24 hr 09/04/24 15:16 09/04/24 15:18 09/04/24 16:01 Temperature Pulse Rate 75 71 Respiratory Rate 22 H 20 Blood Pressure 153/72 H Pulse Oximetry 98 97 Oxygen Delivery Nasal Cannula Oxygen Flow Rate 2 09/04/24 16:01 09/04/24 16:08 09/04/24 17:05 Temperature Pulse Rate 74 80 Respiratory Rate 20 16 Blood Pressure 160/75 H Pulse Oximetry 97 96 Oxygen Delivery Nasal Cannula Oxygen Flow Rate 2 09/04/24 19:00 09/04/24 19:40 09/04/24 19:40 Temperature 97.7 F Pulse Rate 83 80 Respiratory Rate 18 22 H Blood Pressure 162/70 H Pulse Oximetry 94 91 Oxygen Delivery Nasal Cannula Oxygen Flow Rate 2 09/04/24 19:42 09/04/24 22:00 09/04/24 23:23 Temperature 98.6 F Pulse Rate 83 83 Respiratory Rate 22 H 20 Blood Pressure 147/68 H Pulse Oximetry 96 94 Oxygen Delivery Nasal Cannula Oxygen Flow Rate 2 09/05/24 03:33 09/05/24 03:39 09/05/24 06:00 Temperature 97.1 F L Pulse Rate 75 73 88 Respiratory Rate 20 20 20 Blood Pressure 152/81 H Pulse Oximetry 97 Oxygen Delivery Oxygen Flow Rate 09/05/24 07:19 09/05/24 07:19 09/05/24 07:34 Temperature Pulse Rate 84 82 Respiratory Rate 20 20 Blood Pressure Pulse Oximetry 95 Oxygen Delivery Room Air Oxygen Flow Rate 09/05/24 08:51 09/05/24 13:22 09/05/24 13:22 Temperature Pulse Rate 93 Respiratory Rate 20 Blood Pressure Pulse Oximetry 95 97 Oxygen Delivery Nasal Cannula Nasal Cannula Oxygen Flow Rate 2 2 09/05/24 13:38 Temperature Pulse Rate 82 Respiratory Rate 20 Blood Pressure Pulse Oximetry Oxygen Delivery Oxygen Flow Rate Intake/Output Intake/Output: Intake & Output 09/02/24 09/03/24 09/04/24 09/05/24 23:59 23:59 23:59 23:59 Intake Total 250 2236 Output Total 800 Balance 250 1436 Meds/Results Medications: Active Medications Generic Name Dose Route Start Last Admin Trade Name Freq PRN Reason Stop Dose Admin Acetaminophen 650 mg 09/04/24 17:18 Acetaminophen 325 Mg Tablet PO Q4H PRN Mild Pain (1-3) or Fever Albuterol/Ipratropium 3 ml 09/04/24 20:00 09/05/24 13:21 Ipratropium 0.5 Mg/Albuterol Sulfate 2.5 Mg Ampul.Neb 3 Ml INHALATION 3 ml Q6HRT JUSTIN Administration Enoxaparin Sodium 40 mg 09/05/24 09:00 09/05/24 08:52 Enoxaparin 40 Mg/0.4 Ml Syringe SUB-Q 40 mg DAILY JUSTIN Administration Guaifenesin 1,200 mg 09/04/24 21:00 09/05/24 08:52 Guaifenesin 12 Hr 600 Mg Tabcr PO 1,200 mg Q12HR JUSTIN Administration Azithromycin 500 mg in 250 mls @ 250 mls/hr 09/04/24 20:00 09/04/24 21:09 Zithromax IVPB 250 mls/hr Q24H JUSTIN Administration Meropenem 1 gm in 100 mls @ 200 mls/hr 09/04/24 21:00 09/05/24 09:21 IVPB 200 mls/hr Q12HR JUSTIN Administration Sodium Chloride 6 ml 09/05/24 05:00 Sodium Chlor 3% 15 Ml Neb (Respiratory Therapy) INHALATION 09/07/24 05:01 DAILY@0500 [facility] Radiology Results: ITS Impressions Chest X-Ray 09/04/24 13:30 IMPRESSION: Bibasilar atelectasis versus pneumonia more on the left side. Labs Labs: Laboratory Results - last 24 hr 09/04/24 09/04/24 09/04/24 15:03 15:24 16:48 WBC 7.9 RBC 4.34 L Hgb 10.5 L Hct 38.3 L MCV 88.2 MCH 24.2 L MCHC 27.4 L RDW 16.7 H Plt Count 246 MPV 9.7 Immature Gran % (Auto) 0.3 Neut % (Auto) 76.5 H Lymph % (Auto) 11.3 L Bryan % (Auto) 6.1 Eos % (Auto) 5.4 H Baso % (Auto) 0.4 Lymph # (Auto) 0.89 L Bryan # (Auto) 0.5 Eos # (Auto) 0.4 H Baso # (Auto) 0.0 Abs Immat Gran (auto) 0.02 Absolute Neuts (auto) 6.0 Absolute Nucleated RBC 0.000 Nucleated RBC % 0.0 Platelet Estimate Adequate Hypochromasia 2+ Anisocytosis 1+ Ovalocytes 1+ Schistocytes None seen PT 14.2 INR 1.1 APTT 35.0 Puncture Site Right radial ABG pH 7.471 H ABG pCO2 49.3 H ABG pO2 74.2 L ABG PO2/FiO2 Ratio 2.65 ABG HCO3 35.2 H ABG O2 Saturation 95.5 ABG O2 Content 14.3 L ABG Base Excess 10.2 A-a Gradient 67.3 Oxyhemoglobin 94.7 Total Hemoglobin 10.7 L O2 Delivery Device Nasal cannula O2 Liters/Min 2.0 FiO2 28 Sodium 143 Potassium 4.7 Chloride 99 Carbon Dioxide 35 H Anion Gap 9 BUN 32 H Creatinine 1.75 H Estim Creat Clear Calc Not Reportable Estimated GFR 39 L Glucose 97 Lactic Acid 1.0 Calcium 9.0 Magnesium Total Bilirubin 0.5 AST 18 ALT 11 Alkaline Phosphatase 125 Troponin I < 0.012 C-Reactive Protein < 0.5 NT-Pro-B Natriuret Pep 893 H Total Protein 7.0 Albumin 3.8 Nasal MRSA (PCR) Influenza A (RT-PCR) Negative Influenza B (RT-PCR) Negative RSV (RT-PCR) Negative SARS-CoV-2 RNA (RT-PCR) Negative 09/04/24 09/05/24 21:49 05:32 WBC 4.8 RBC 3.85 L Hgb 9.4 L Hct 33.0 L MCV 85.7 MCH 24.4 L MCHC 28.5 L RDW 16.5 H Plt Count 218 MPV 10.0 Immature Gran % (Auto) Neut % (Auto) Lymph % (Auto) Bryan % (Auto) Eos % (Auto) Baso % (Auto) Lymph # (Auto) Bryan # (Auto) Eos # (Auto) Baso # (Auto) Abs Immat Gran (auto) Absolute Neuts (auto) Absolute Nucleated RBC Nucleated RBC % Platelet Estimate Hypochromasia Anisocytosis Ovalocytes Schistocytes PT INR APTT Puncture Site ABG pH ABG pCO2 ABG pO2 ABG PO2/FiO2 Ratio ABG HCO3 ABG O2 Saturation ABG O2 Content ABG Base Excess A-a Gradient Oxyhemoglobin Total Hemoglobin O2 Delivery Device O2 Liters/Min FiO2 Sodium 141 Potassium 4.2 Chloride 99 Carbon Dioxide 35 H Anion Gap 7 BUN 32 H Creatinine 1.96 H Estim Creat Clear Calc 30 Estimated GFR 34 L Glucose 172 H Lactic Acid Calcium 8.3 L Magnesium 2.0 Total Bilirubin AST ALT Alkaline Phosphatase Troponin I C-Reactive Protein NT-Pro-B Natriuret Pep Total Protein Albumin Nasal MRSA (PCR) Not detected Influenza A (RT-PCR) Influenza B (RT-PCR) RSV (RT-PCR) SARS-CoV-2 RNA (RT-PCR) Quality VTE Prophylaxis VTE prophylaxis: pharmacologic ordered Hospitalist [facility] Advance Care Plan I have confirmed that the patient's Advanced Care Plan is present, code status is documented, or surrogate decision maker is listed in patient medical record.: Yes Medication Reconciliation I have utilized all available resources to obtain, update and review the patients current medications (includes all prescriptions, OTC, herbals, cannabis, and nutritional supplements).: Yes
[2024-09-05] MEDS: FLUTICASONE/SALMETEROL 230-21 MCG INHALER 1 PUFF 2 PUFF INHALATION (20:14)
[2024-09-05] MEDS: carvediloL 25 MG TABLET BY MOUTH (20:31)
[2024-09-05] MEDS: TAMSULOSIN HCL 0.4 MG CAPSULE 0.8 MG PO (20:32)
[2024-09-05] MEDS: ATORVASTATIN 40 MG TABLET 80 MG PO (20:32)
[2024-09-05] MEDS: amLODIPine BESYLATE 10 MG TABLET PO (20:32)
[2024-09-05] MEDS: AZITHROMYCIN 500 MG/NS 250 ML 500 MG/250 ML BAG 250 MG IVPB (22:09)
[2024-09-06] VITALS (14 sets, daily range): BP systolic 136–163; BP diastolic 65–73; PULSE 62–88; RESP 16–20; TEMP 36.5–36.9; O2SAT 94–96
[2024-09-06] MEDS: IPRATROPIUM 0.5 MG/ALBUTEROL SULFATE 2.5 MG AMPUL.NEB 3 ML INHALATION ×4 (02:17→19:34)
[2024-09-06 05:55] LABS: Hematocrit 33.2 % (42.0-52.0); Hemoglobin 9.4 g/dL (14.0-18.0); Mean Corpuscular HGB Conc 28.3 g/dl (32-36); Mean Corpuscular Hemoglobin 24.2 pg (26-34); Mean Corpuscular Volume 85.3 fl (80-100); Mean Platelet Volume 9.5 fl (7.4-10.4); Platelet Count Result 217 k/mm3 (150-375); Red Blood Count 3.89 M/mm3 (4.6-6.20); Red Cell Distribution Width 16.7 % (11.5-14.5); White Blood Count 7.7 K/mm3 (4.5-10.0)
[2024-09-06 06:12] LABS: Alanine Aminotransferase 10 U/L (6-50); Albumin Level 3.2 g/dL (3.5-5.1); Alkaline Phosphatase 90 U/L (38-126); Anion Gap 4 mmol/L (4-12); Aspartate Amino Transferase 20 U/L (17-59); Bilirubin,Total 0.4 mg/dL (0.2-1.3); Blood Urea Nitrogen 31 mg/dL (9-20); Carbon Dioxide 34 mmol/L (22-30); Chloride 101 mmol/L (98-107); Estimated CRCL calculation 33 ml/min; Estimated Glomerular Filt Rate 38; Glucose 91 mg/dL (65-110); Sodium 139 mmol/L (137-145)
[2024-09-06] MEDS: cilostazoL 50 MG TABLET PO ×2 (06:31→17:02)
[2024-09-06] MEDS: MULTIVITAMINS /C LUTEIN (CENTRUM SILVER) TABLET *BKC 1 TAB PO (08:22)
[2024-09-06] MEDS: CLOPIDOGREL BISULFATE 75 MG TABLET PO (08:22)
[2024-09-06] MEDS: MAGNESIUM 27 MG TABLET (500 MG MAG GLUCONATE) BY MOUTH (08:22)
[2024-09-06] MEDS: ENOXAPARIN 40 MG/0.4 ML SYRINGE SUB-Q (08:23)
[2024-09-06] MEDS: POTASSIUM CHLORIDE 10 MEQ ER TABLET PO (08:23)
[2024-09-06] MEDS: guaiFENesin 12 HR 600 MG TABCR 1200 MG PO ×2 (08:23→20:31)
[2024-09-06] MEDS: FUROSEMIDE 40 MG TABLET PO (08:23)
[2024-09-06] MEDS: FINASTERIDE 5 MG TABLET PO (08:23)
[2024-09-06] MEDS: carvediloL 25 MG TABLET BY MOUTH ×2 (08:23→20:29)
[2024-09-06] MEDS: PANTOPRAZOLE 40 MG TABLET PO (08:23)
[2024-09-06] MEDS: MEROPENEM 1 GM/NS 100 ML 1 GM/100 ML BAG IVPB ×2 (08:30→20:29)
[2024-09-06] MEDS: FLUTICASONE/SALMETEROL 230-21 MCG INHALER 1 PUFF 2 PUFF INHALATION ×2 (09:02→19:36)
--- NOTE | 2024-09-06 12:12 | P.PNIM_ITS ---
Progress Note: A&P Assessment and Plan (1) Pneumonia: Code(s): J18.9 - Pneumonia, unspecified organism Status: Acute (2) Bronchiectasis: Code(s): J47.9 - Bronchiectasis, uncomplicated Status: Acute (3) COPD with emphysema: Qualifiers: Emphysema type: unspecified Qualified Code(s): J43.9 - Emphysema, unspecified Code(s): J43.9 - Emphysema, unspecified Status: Acute (4) Chronic respiratory failure with hypoxia, on home oxygen therapy: Code(s): J96.11 - Chronic respiratory failure with hypoxia; Z99.81 - Dependence on supplemental oxygen Status: Acute (5) Obstructive sleep apnea: Code(s): G47.33 - Obstructive sleep apnea (adult) (pediatric) Status: Chronic (6) Coronary artery disease: Code(s): I25.10 - Atherosclerotic heart disease of [place] coronary artery without angina pectoris Status: Acute Plan The patient presented to the emergency department for evaluation of shortness of breath and productive cough as detailed in HPI. Labs, imaging, EKG, and all reports were personally reviewed. He has completed 2 courses of azithromycin and a short round of steroids without much improvement. He was told to come to the ED today given history of mycobacterium kansasii and Pseudomonas aeruginosa infections. Chest x-ray shows findings of possible pneumonia and he has been started on azithromycin and meropenem. Sputum cultures and AFB cultures and smears ordered. Cornet and Mucinex ordered to help mobilize secretions. Continue scheduled bronchodilators. Hold on scheduling further steroids pending pulmonology input. Creatinine is stable on review of previous labs. He has not had any episodes of chest pain. His home medications will be reviewed and resumed as appropriate. Findings and treatment plan were discussed with the patient. Questions were solicited and answered to satisfaction. The patient's medical management will be taken over by the hospitalist team in a.m. 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 Patient was a previous smoker and smokes to 1 PPD. Patient follows up with Dr. Landeros has an outpatient. He reports having sputum culture at [facility] and it was positive for Mycobacterium kansasii infection. He has an appointment on September 18 with ID specialist over there. Patient has 3 stents in his left leg. Patient follows with and denies any cardiac history. He reports taking Lasix for easing up on his lungs and Carvedilol for BP. Exam Narrative: General: Well-developed, nontoxic-appearing gentleman sitting up in bed in no acute distress. Weight: 70.2 kg. BMI: 26.2. HEENT: PERRL, EOMI. Sclera anicteric. Oral mucosa moist. Neck: Supple. No JVD or lymphadenopathy. Respiratory: Respirations are nonlabored and he is speaking in full sentences. Lung sounds are diminished and a bit coarse at the bases. Occasional squeaks at the right base with scattered rales. Mild expiratory wheezing. Cardiovascular: Regular rate and rhythm with S1-S2. Gastrointestinal: Abdomen is soft, nontender, and nondistended with positive bowel sounds. Skin: Warm and dry. No rash or lesions on limited exam. Extremities: No cyanosis, clubbing, or significant edema. Radial and pedal pulses intact. Neurological: Alert. Cranial nerves 2-12 are grossly intact. No gross focal deficits to casual conversation. Psychiatric: Pleasant and cooperative with normal mood and affect. Judgment a nd insight intact. Objective Data Vital Signs Vital Signs: Vital Signs - 24 hr 09/05/24 13:22 09/05/24 13:22 09/05/24 13:38 Temperature Pulse Rate 93 82 Respiratory Rate 20 20 Blood Pressure Pulse Oximetry 97 Oxygen Delivery Nasal Cannula Oxygen Flow Rate 2 09/05/24 14:00 09/05/24 20:15 09/05/24 20:18 Temperature 97.3 F L Pulse Rate 83 82 Respiratory Rate 19 20 Blood Pressure 136/82 Pulse Oximetry 98 95 Oxygen Delivery Nasal Cannula Oxygen Flow Rate 2 09/05/24 20:24 09/05/24 20:31 09/05/24 21:10 Temperature 98.1 F Pulse Rate 84 77 77 Respiratory Rate 20 20 Blood Pressure 168/77 H Pulse Oximetry 98 Oxygen Delivery Oxygen Flow Rate 09/06/24 02:17 09/06/24 02:25 09/06/24 06:00 Temperature 97.7 F Pulse Rate 79 82 71 Respiratory Rate 20 20 18 Blood Pressure 163/73 H Pulse Oximetry 94 Oxygen Delivery Oxygen Flow Rate 09/06/24 08:23 09/06/24 08:24 09/06/24 09:02 Temperature Pulse Rate 71 Respiratory Rate Blood Pressure Pulse Oximetry 95 95 Oxygen Delivery Nasal Cannula Nasal Cannula Oxygen Flow Rate 2 2 09/06/24 09:02 09/06/24 09:14 Temperature Pulse Rate 87 Respiratory Rate 20 20 Blood Pressure Pulse Oximetry Oxygen Delivery Oxygen Flow Rate Intake/Output Intake/Output: Intake & Output 09/03/24 09/04/24 09/05/24 09/06/24 23:59 23:59 23:59 23:59 Intake Total 500 3406 1480 Output Total 800 750 Balance 500 2606 730 Meds/Results Medications: Active Medications Generic Name Dose Route Start Last Admin Trade Name Freq PRN Reason Stop Dose Admin Acetaminophen 1,000 mg 09/05/24 17:16 Acetaminophen 500 Mg Tablet PO Q6H PRN Mild Pain (Scale Score 1-4) Albuterol 2 puff 09/05/24 17:16 Albuterol Sulfate (*Sp) Aerosol 1 Puff INHALATION Q6H PRN shortness of breath or wheezing Albuterol 2.5 mg 09/05/24 17:16 Albuterol Sulfate Neb 2.5 Mg/3 Ml Inh INHALATION Q4-6H PRN Shortness Of Breath Albuterol/Ipratropium 3 ml 09/04/24 20:00 09/06/24 09:02 Ipratropium 0.5 Mg/Albuterol Sulfate 2.5 Mg Ampul.Neb 3 Ml INHALATION 3 ml Q6HRT JUSTIN Administration Amlodipine Besylate 10 mg 09/05/24 21:00 09/05/24 20:32 Amlodipine Besylate 10 Mg Tablet PO 10 mg HS JUSTIN Administration Atorvastatin Calcium 80 mg 09/05/24 21:00 09/05/24 20:32 Atorvastatin 40 Mg Tablet PO 80 mg HS JUSTIN Administration Benzonatate 100 mg 09/05/24 17:16 Benzonatate 100 Mg Capsule PO TID PRN cough Carvedilol 25 mg 09/05/24 21:00 09/06/24 08:23 Carvedilol 25 Mg Tablet BY MOUTH 25 mg Q12HR JUSTIN Administration Cilostazol 50 mg 09/06/24 06:30 09/06/24 06:31 Cilostazol 50 Mg Tablet PO 50 mg BIDAC JUSTIN Administration Clopidogrel Bisulfate 75 mg 09/06/24 09:00 09/06/24 08:22 Clopidogrel Bisulfate 75 Mg Tablet PO 75 mg DAILY JUSTIN Administration Doxepin HCl 25 mg 09/05/24 17:16 Doxepin Hcl 25 Mg Capsule PO QHS PRN Sleep Enoxaparin Sodium 40 mg 09/05/24 09:00 09/06/24 08:23 Enoxaparin 40 Mg/0.4 Ml Syringe SUB-Q 40 mg DAILY JUSTIN Administration Finasteride 5 mg 09/06/24 09:00 09/06/24 08:23 Finasteride 5 Mg Tablet PO 5 mg DAILY JUSTIN Administration Furosemide 40 mg 09/06/24 09:00 09/06/24 08:23 Furosemide 40 Mg Tablet PO 40 mg QAM JUSTIN Administration Gabapentin 300 mg 09/05/24 17:16 Gabapentin 300 Mg Capsule PO HS PRN Pain Guaifenesin 1,200 mg 09/04/24 21:00 09/06/24 08:23 Guaifenesin 12 Hr 600 Mg Tabcr PO 1,200 mg Q12HR JUSTIN Administration Azithromycin 500 mg in 250 mls @ 250 mls/hr 09/04/24 20:00 09/05/24 23:09 Zithromax IVPB Infused Q24H JUSTIN Infusion Meropenem 1 gm in 100 mls @ 200 mls/hr 09/04/24 21:00 09/05/24 21:02 IVPB Infused Q12HR JUSTIN Infusion Loratadine 10 mg 09/05/24 17:27 Loratadine 10 Mg Tablet PO HS PRN allergy symptoms Magnesium Gluconate 27 mg 09/06/24 09:00 09/06/24 08:22 Magnesium 27 Mg Tablet (500 Mg Mag Gluconate) BY MOUTH 27 mg DAILY JUSTIN Administration Miscellaneous Information 1 each 09/06/24 00:01 Albuterol Mdi And Albuterol Neb Have Duplicate Prn Indications, Hold One? XX 10/06/24 00:00 CLARIFY JUSTIN Miscellaneous Information 1 each 09/06/24 00:01 Stiolto Is Duplicate Therapy With Pt's Wixella Hold Stiolto? XX 10/06/24 00:00 CLARIFY [facility] Multivitamins/Minerals 1 tab 09/06/24 09:00 09/06/24 08:22 Multivitamins /C Lutein (Centrum Silver) Tablet *Bkc PO 1 tab DAILY JUSTIN Administration Non-Formulary Medication 2 puff 09/06/24 09:00 Tiotropium-Olodaterol INHALATION 10/06/24 08:59 DAILY [facility] Pantoprazole Sodium 40 mg 09/06/24 09:00 09/06/24 08:23 Pantoprazole 40 Mg Tablet PO 40 mg DAILY [facility] Administration Potassium Chloride 10 meq 09/06/24 09:00 09/06/24 08:23 Potassium Chloride 10 Meq Er Tablet PO 10 meq DAILY [facility] Administration Fluticasone/Salmeterol 2 puff 09/05/24 20:00 09/06/24 09:02 Fluticasone/Salmeterol 230-21 Mcg Inhaler 1 Puff INHALATION 2 puff Q12HRT [facility] Administration Sodium Chloride 6 ml 09/05/24 05:00 Sodium Chlor 3% 15 Ml Neb (Respiratory Therapy) INHALATION 09/07/24 05:01 DAILY@0500 [facility] Tamsulosin HCl 0.8 mg 09/05/24 21:00 09/05/24 20:32 Tamsulosin Hcl 0.4 Mg Capsule PO 0.8 mg HS JUSTIN Administration Tramadol HCl 50 mg 09/05/24 17:16 Tramadol Hcl (*Crx) 50 Mg Tablet PO Q6H PRN Moderate Pain (Scale Score 5-6) Triamcinolone Acetonide 1 applic 09/05/24 17:16 Triamcinolone Acet 0.1% Oint 15 Gm Tube TOPICAL PRN PRN Rash Radiology Results: ITS Impressions Chest X-Ray 09/04/24 13:30 IMPRESSION: Bibasilar atelectasis versus pneumonia more on the left side. Labs Labs: Laboratory Results - last 24 hr 09/06/24 05:33 WBC 7.7 RBC 3.89 L Hgb 9.4 L Hct 33.2 L MCV 85.3 MCH 24.2 L MCHC 28.3 L RDW 16.7 H Plt Count 217 MPV 9.5 Sodium 139 Potassium 4.0 Chloride 101 Carbon Dioxide 34 H Anion Gap 4 BUN 31 H Creatinine 1.76 H Estim Creat Clear Calc 33 Estimated GFR 38 L Glucose 91 Calcium 8.0 L Total Bilirubin 0.4 AST 20 ALT 10 Alkaline Phosphatase 90 Total Protein 6.0 L Albumin 3.2 L Quality VTE Prophylaxis VTE prophylaxis: pharmacologic ordered Hospitalist MIPS Advance Care Plan I have confirmed that the patient's Advanced Care Plan is present, code status is documented, or surrogate decision maker is listed in patient medical record.: Yes Medication Reconciliation I have utilized all available resources to obtain, update and review the patients current medications (includes all prescriptions, OTC, herbals, cannabis, and nutritional supplements).: Yes
[2024-09-06] MEDS: LACTASE 3,000 UNIT TABLET 3000 UNIT PO (18:27)
[2024-09-06] MEDS: ATORVASTATIN 40 MG TABLET 80 MG PO (20:30)
[2024-09-06] MEDS: amLODIPine BESYLATE 10 MG TABLET PO (20:30)
[2024-09-06] MEDS: TAMSULOSIN HCL 0.4 MG CAPSULE 0.8 MG PO (20:33)
[2024-09-06] MEDS: AZITHROMYCIN 500 MG/NS 250 ML 500 MG/250 ML BAG 250 MG IVPB (21:52)
[2024-09-06] MEDS: GABAPENTIN 300 MG CAPSULE PO (23:31)
[2024-09-07] VITALS (12 sets, daily range): BP systolic 138–145; BP diastolic 64–72; PULSE 74–95; RESP 16–20; TEMP 36.6–36.9; O2SAT 92–100
--- NOTE | 2024-09-07 | ECHO_ITS ---
Patient Info Name: Freddy Hill Age: 73 years : 1950 Gender: Male Ht: 68 in Wt: 173 lbs BSA: 1.95 m2 HR: 73 bpm BP: 136 / 64 mmHg Heart Rhythm: Sinus Rhythm Technical Quality: Poor Exam Date: 09/07/2024 2:00 PM Exam Location: Echo Lab Patient Status: Inpatient Admit Date: 09/06/2024 Staff Ordering Physician: Yogi Fields MD Psychiatric Rn: Malaika Rae RDCS Attending Provider: Yogi Fields MD Exam Type: CA echo dop color flow w con Study Info Indications - ELEVATED BNP - HYPOXIA Complete two-dimensional, color flow and Doppler transthoracic echocardiogram is performed with contrast to opacify the left ventricle and to improve the deliniation of the left ventricle endocardial borders. Contrast/Agitated Saline Contrast/Ag. Saline: Definity Amount: 2.00 ml Existing IV Access: Yes Reason for Poor Study: poor echocardiographic windows Summary 1. Technically difficult study. 2. Left ventricular chamber dimension is normal. 3. Left ventricular systolic function is normal, estimated at 60-65%. 4. There is moderately increased left ventricular wall thickness. 5. The left ventricular diastolic function is grade I diastolic dysfunction. 6. Right ventricular chamber dimension is normal. 7. Right ventricular systolic function is normal. 8. Left atrial chamber dimension is mildly enlarged. 9. Right atrial chamber dimension is mildly enlarged. 10. There is mild tricuspid valve regurgitation. Left Ventricle Left ventricular chamber dimension is normal. Left ventricular systolic function is normal, estimated at 60-65%. There is moderately increased left ventricular wall thickness. The left ventricular diastolic function is grade I diastolic dysfunction. Right Ventricle Linear artifact in right ventricle suggestive of catheter(s), pacemaker lead(s), or ICD lead(s). Right ventricular chamber dimension is normal. Right ventricular systolic function is normal. Left Atria Left atrial chamber dimension is mildly enlarged. Right Atria Linear artifact in the right atrium suggestive of catheter(s), pacemaker lead(s), or ICD lead(s). Right atrial chamber dimension is mildly enlarged. Atrial Septum Intact interatrial septum visualized by color flow imaging. Aortic Valve The aortic valve is trileaflet. There is no aortic valve stenosis. There is no aortic valve regurgitation. There is mild aortic valve calcification. Pulmonic Valve The pulmonic valve is not well visualized. There is trace pulmonic regurgitation. Mitral Valve There is trace mitral valve regurgitation. Tricuspid Valve There is mild tricuspid valve regurgitation. Pericardium/Pleural The pericardium appears epicardial fat pad. There is no pericardial effusion. Inferior Vena Cava Dilated inferior vena cava with >50% collapse upon inspiration consistent with elevated right atrial pressure, 8 mmHg. Aorta The aortic root size at the sinus of Valsalva is normal. Left Ventricular Outflow Tract Name Value Normal LVOT 2D LVOT Diameter 2.28 cm LVOT Doppler LVOT Peak Gradient 4 mmHg LVOT Mean Gradient 2 mmHg LVOT VTI 20.24 cm LVOT VTI/AV VTI Ratio 0.59 LVOT Stroke Volume 82.43 ml LVOT CO 6.14 l/min LVOT CI 3.15 L/min/m2 Pulmonic Valve Name Value Normal RVOT Doppler RVOT Peak Gradient 2 mmHg PV Doppler PV Peak Gradient 3 mmHg PV Regurgitation Doppler MA Peak End Diastolic Velocity 136.28 cm/s Mitral Valve Name Value Normal MV Doppler MV Decel Chaves 300.78 cm/s2 MV PHT 0 s MV Area (PHT) 4.76 cm2 4.00-5.00 MV Diastolic Function MV E Peak Velocity 47.97 cm/s MV A Peak Velocity 88.13 cm/s MV E/A 0.54 MV Decel Time 0 s MV Annular TDI MV E/e' (Septal) 8.50 <=8.00 MV E/e' (Lateral) 4.88 <=8.00 MV E/e' (Average) 6.69 Tricuspid Valve Name Value Normal TV Regurgitation Doppler TR Peak Velocity 273.68 cm/s TR Peak Gradient 30 mmHg Estimated PAP/RSVP RA Pressure 8 mmHg <=5 PA Systolic Pressure 38 mmHg <36 RV Systolic Pressure 38 mmHg <36 Aorta Name Value Normal Ascending Aorta Ao Root Diameter (MM) 3.60 cm Ao Root Diam Index (MM) 1.84 cm/m2 Aortic Valve Name Value Normal AV Doppler AV Peak Velocity 175.32 cm/s AV Peak Gradient 12 mmHg AV Mean Gradient 7 mmHg AV VTI 34.56 cm AV Area (Cont Eq VTI) 2.39 cm2 >=3.00 AV Area (Cont Eq Rajesh) 2.25 cm2 AV Regurgitation 2D LVOT Area 4.07 cm2 Ventricles Name Value Normal LV Dimensions 2D/MM IVS Diastolic Thickness (2D) 1.49 cm 0.60-1.00 LVID Diastole (2D) 4.14 cm 4.20-5.80 LVIW Diastolic Thickness (2D) 2.07 cm 0.60-1.00 LVID Systole (2D) 2.80 cm 2.50-4.00 LVOT Diameter 2.28 cm LV Mass (2D Cubed) 322.43 g 88.00-224.00 LV Mass Index (2D Cubed) 0.02 g/cm2 0.00-0.01 Relative Wall Thickness (2D) 1.00 LV Fractional Shortening/Ejection Fraction 2D/MM LV Fractional Shortening (2D) 28 % 25-43 LV EF (2D Teichlupisz) 55 % 52-72 LV Diastolic Volume (4C MOD) 129.64 ml LV EF (4C MOD) 75 % LV Diastolic Volume (2C MOD) 84.30 ml LV EF (2C MOD) 61 % LV Diastolic Volume (BP MOD) 105.40 ml 62.00-150.00 LV Diastolic Volume Index (BP MOD) 0.05 l/m2 0.03-0.07 LV Systolic Volume (BP MOD) 32.25 ml 21.00-61.00 LV Systolic Volume Index (BP MOD) 0.02 l/m2 0.01-0.03 LV EF (BP MOD) 69 % 52-72 LV Diastolic Length (4C) 9.46 cm LV Systolic Length (4C) 7.98 cm LV Stroke Volume (4C MOD) 97.22 ml Atria Name Value Normal LA Dimensions LA Dimension (MM) 4.35 cm 3.00-4.10 LA Volume (4C A-L) 44.89 ml LA Volume (BP A-L) 61.15 ml RA Dimensions RA Area (4C) 17.64 cm2 <=18.00 Report Signatures
[2024-09-07] MEDS: IPRATROPIUM 0.5 MG/ALBUTEROL SULFATE 2.5 MG AMPUL.NEB 3 ML INHALATION ×4 (01:02→19:59)
[2024-09-07] MEDS: SODIUM CHLOR 3% 15 ML NEB (RESPIRATORY THERAPY) 6 ML INHALATION (04:17)
--- NOTE | 2024-09-07 04:30 | PCRCNOTE ---
Sputum induction done. No sputum sample collected.
[2024-09-07 05:58] LABS: Hematocrit 32.1 % (42.0-52.0); Hemoglobin 9.1 g/dL (14.0-18.0); Mean Corpuscular HGB Conc 28.3 g/dl (32-36); Mean Corpuscular Volume 84.7 fl (80-100); Mean Platelet Volume 8.7 fl (7.4-10.4); Platelet Count Result 212 k/mm3 (150-375); Red Blood Count 3.79 M/mm3 (4.6-6.20); Red Cell Distribution Width 16.5 % (11.5-14.5); White Blood Count 10.8 K/mm3 (4.5-10.0)
[2024-09-07 06:13] LABS: Alanine Aminotransferase 9 U/L (6-50); Albumin Level 3.1 g/dL (3.5-5.1); Alkaline Phosphatase 90 U/L (38-126); Anion Gap 2 mmol/L (4-12); Aspartate Amino Transferase 19 U/L (17-59); Bilirubin,Total 0.5 mg/dL (0.2-1.3); Blood Urea Nitrogen 35 mg/dL (9-20); Calcium 7.9 mg/dL (8.4-10.2); Carbon Dioxide 34 mmol/L (22-30); Chloride 104 mmol/L (98-107); Estimated CRCL calculation 33 ml/min; Estimated Glomerular Filt Rate 38; Glucose 99 mg/dL (65-110); Potassium 4.1 mmol/L (3.4-5.0); Sodium 140 mmol/L (137-145)
[2024-09-07] MEDS: cilostazoL 50 MG TABLET PO ×2 (06:36→16:58)
[2024-09-07] MEDS: ENOXAPARIN 40 MG/0.4 ML SYRINGE SUB-Q (08:25)
[2024-09-07] MEDS: PANTOPRAZOLE 40 MG TABLET PO (08:25)
[2024-09-07] MEDS: CLOPIDOGREL BISULFATE 75 MG TABLET PO (08:25)
[2024-09-07] MEDS: FUROSEMIDE 40 MG TABLET PO (08:25)
[2024-09-07] MEDS: MULTIVITAMINS /C LUTEIN (CENTRUM SILVER) TABLET *BKC 1 TAB PO (08:25)
[2024-09-07] MEDS: guaiFENesin 12 HR 600 MG TABCR 1200 MG PO ×2 (08:25→20:17)
[2024-09-07] MEDS: MAGNESIUM 27 MG TABLET (500 MG MAG GLUCONATE) BY MOUTH (08:26)
[2024-09-07] MEDS: FINASTERIDE 5 MG TABLET PO (08:26)
[2024-09-07] MEDS: LACTASE 3,000 UNIT TABLET 3000 UNIT PO ×3 (08:26→16:58)
[2024-09-07] MEDS: POTASSIUM CHLORIDE 10 MEQ ER TABLET PO (08:26)
[2024-09-07] MEDS: carvediloL 25 MG TABLET BY MOUTH ×2 (08:26→20:18)
[2024-09-07] MEDS: FLUTICASONE/SALMETEROL 230-21 MCG INHALER 1 PUFF 2 PUFF INHALATION ×2 (08:36→20:03)
[2024-09-07] MEDS: MEROPENEM 1 GM/NS 100 ML 1 GM/100 ML BAG IVPB ×2 (08:37→20:22)
--- NOTE | 2024-09-07 12:49 | P.PNIM_ITS ---
Progress Note: A&P Assessment and Plan (1) Pneumonia: Code(s): J18.9 - Pneumonia, unspecified organism Status: Acute (2) Bronchiectasis: Code(s): J47.9 - Bronchiectasis, uncomplicated Status: Acute (3) COPD with emphysema: Qualifiers: Emphysema type: unspecified Qualified Code(s): J43.9 - Emphysema, unspecified Code(s): J43.9 - Emphysema, unspecified Status: Acute (4) Chronic respiratory failure with hypoxia, on home oxygen therapy: Code(s): J96.11 - Chronic respiratory failure with hypoxia; Z99.81 - Dependence on supplemental oxygen Status: Acute (5) Obstructive sleep apnea: Code(s): G47.33 - Obstructive sleep apnea (adult) (pediatric) Status: Chronic (6) Coronary artery disease: Code(s): I25.10 - Atherosclerotic heart disease of [place] coronary artery without angina pectoris Status: Acute Plan Patient uses home oxygen usually 2 L during day time and 4L at night. Patient was a previous smoker and smokes to 1 PPD. Patient follows up with Dr. Landeros has an outpatient. 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 He has an appointment on September 18 with ID specialist over there. Patient has 3 stents in his left leg. Patient follows with and denies any cardiac history. He reports taking Lasix for easing up on his lungs and Carvedilol for BP. 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 Will discuss with Cogeneration Technician to rule our PE. Considering his renal function, may hold lasix and gentle fluid hydration before performing CTA to rule pE if needed. Exam Narrative: General: Well-developed, nontoxic-appearing gentleman sitting up in bed in no acute distress. Weight: 70.2 kg. BMI: 26.2. HEENT: PERRL, EOMI. Sclera anicteric. Oral mucosa moist. Neck: Supple. No JVD or lymphadenopathy. Respiratory: Respirations are nonlabored and he is speaking in full sentences. Lung sounds are diminished and a bit coarse at the bases. Occasional squeaks at the right base with scattered rales. Mild expiratory wheezing. Cardiovascular: Regular rate and rhythm with S1-S2. Gastrointestinal: Abdomen is soft, nontender, and nondistended with positive bowel sounds. Skin: Warm and dry. No rash or lesions on limited exam. Extremities: No cyanosis, clubbing, or significant edema. Radial and pedal pulses intact. Neurological: Alert. Cranial nerves 2-12 are grossly intact. No gross focal deficits to casual conversation. Psychiatric: Pleasant and cooperative with normal mood and affect. Judgment and insight intact. Objective Data Vital Signs Vital Signs: Vital Signs - 24 hr 09/06/24 13:51 09/06/24 13:51 09/06/24 14:00 Temperature 98.2 F Pulse Rate 76 76 69 Respiratory Rate 20 20 20 Blood Pressure 142/70 H Pulse Oximetry 95 95 Oxygen Delivery Nasal Cannula Oxygen Flow Rate 2 Fraction of Inspired Oxygen 09/06/24 14:02 09/06/24 19:34 09/06/24 19:34 Temperature Pulse Rate 62 83 Respiratory Rate 20 20 Blood Pressure Pulse Oximetry 96 Oxygen Delivery Nasal Cannula Oxygen Flow Rate 2 Fraction of Inspired Oxygen 28 09/06/24 19:50 09/06/24 20:29 09/06/24 21:28 Temperature 98.4 F Pulse Rate 81 88 87 Respiratory Rate 20 16 Blood Pressure 136/65 Pulse Oximetry 95 Oxygen Delivery Oxygen Flow Rate Fraction of Inspired Oxygen 09/07/24 01:02 09/07/24 01:02 09/07/24 01:12 Temperature Pulse Rate 78 77 Respiratory Rate 20 20 Blood Pressure Pulse Oximetry 93 Oxygen Delivery Nasal Cannula Oxygen Flow Rate 4 Fraction of Inspired Oxygen 36 09/07/24 05:08 09/07/24 08:26 09/07/24 08:26 Temperature 98.4 F Pulse Rate 78 76 Respiratory Rate 16 Blood Pressure 138/71 Pulse Oximetry 100 Oxygen Delivery Nasal Cannula Oxygen Flow Rate 2 Fraction of Inspired Oxygen 09/07/24 08:36 09/07/24 08:36 Temperature Pulse Rate 82 Respiratory Rate 20 Blood Pressure Pulse Oximetry 94 Oxygen Delivery Nasal Cannula Oxygen Flow Rate 4 Fraction of Inspired Oxygen Intake/Output Intake/Output: Intake & Output 09/04/24 09/05/24 09/06/24 09/07/24 23:59 23:59 23:59 23:59 Intake Total 500 3406 2750 600 Output Total 800 750 Balance 500 2606 2000 600 Meds/Results Medications: Active Medications Generic Name Dose Route Start Last Admin Trade Name Freq PRN Reason Stop Dose Admin Acetaminophen 1,000 mg 09/05/24 17:16 Acetaminophen 500 Mg Tablet PO Q6H PRN Mild Pain (Scale Score 1-4) Albuterol 2 puff 09/05/24 17:16 Albuterol Sulfate (*Sp) Aerosol 1 Puff INHALATION Q6H PRN shortness of breath or wheezing Albuterol 2.5 mg 09/05/24 17:16 Albuterol Sulfate Neb 2.5 Mg/3 Ml Inh INHALATION Q4-6H PRN Shortness Of Breath Albuterol/Ipratropium 3 ml 09/04/24 20:00 09/07/24 08:36 Ipratropium 0.5 Mg/Albuterol Sulfate 2.5 Mg Ampul.Neb 3 Ml INHALATION 3 ml Q6HRT JUSTIN Administration Amlodipine Besylate 10 mg 09/05/24 21:00 09/06/24 20:30 Amlodipine Besylate 10 Mg Tablet PO 10 mg HS JUSTIN Administration Atorvastatin Calcium 80 mg 09/05/24 21:00 09/06/24 20:30 Atorvastatin 40 Mg Tablet PO 80 mg HS JUSTIN Administration Azithromycin 500 mg 09/07/24 21:00 Azithromycin 250 Mg Tablet PO 09/13/24 21:01 QHS JUSTIN Benzonatate 100 mg 09/05/24 17:16 Benzonatate 100 Mg Capsule PO TID PRN cough Carvedilol 25 mg 09/05/24 21:00 09/07/24 08:26 Carvedilol 25 Mg Tablet BY MOUTH 25 mg Q12HR JUSTIN Administration Cilostazol 50 mg 09/06/24 06:30 09/07/24 06:36 Cilostazol 50 Mg Tablet PO 50 mg BIDAC JUSTIN Administration Clopidogrel Bisulfate 75 mg 09/06/24 09:00 09/07/24 08:25 Clopidogrel Bisulfate 75 Mg Tablet PO 75 mg DAILY JUSTIN Administration Doxepin HCl 25 mg 09/05/24 17:16 Doxepin Hcl 25 Mg Capsule PO QHS PRN Sleep Enoxaparin Sodium 40 mg 09/05/24 09:00 09/07/24 08:25 Enoxaparin 40 Mg/0.4 Ml Syringe SUB-Q 40 mg DAILY JUSTIN Administration Finasteride 5 mg 09/06/24 09:00 09/07/24 08:26 Finasteride 5 Mg Tablet PO 5 mg DAILY JUSTIN Administration Furosemide 40 mg 09/06/24 09:00 09/07/24 08:25 Furosemide 40 Mg Tablet PO 40 mg QAM JUSTIN Administration Gabapentin 300 mg 09/05/24 17:16 09/06/24 23:31 Gabapentin 300 Mg Capsule PO 300 mg HS PRN Administration Pain Guaifenesin 1,200 mg 09/04/24 21:00 09/07/24 08:25 Guaifenesin 12 Hr 600 Mg Tabcr PO 1,200 mg Q12HR JUSTIN Administration Meropenem 1 gm in 100 mls @ 200 mls/hr 09/04/24 21:00 09/07/24 08:37 IVPB 200 mls/hr Q12HR JUSTIN Administration Lactase 3,000 unit 09/06/24 18:05 09/07/24 12:24 Lactase 3,000 Unit Tablet PO 3,000 unit TIDWM JUSTIN Administration Loratadine 10 mg 09/05/24 17:27 Loratadine 10 Mg Tablet PO HS PRN allergy symptoms Magnesium Gluconate 27 mg 09/06/24 09:00 09/07/24 08:26 Magnesium 27 Mg Tablet (500 Mg Mag Gluconate) BY MOUTH 27 mg DAILY JUSTIN Administration Multivitamins/Minerals 1 tab 09/06/24 09:00 09/07/24 08:25 Multivitamins /C Lutein (Centrum Silver) Tablet *Bkc PO 1 tab DAILY JUSTIN Administration Non-Formulary Medication 2 puff 09/06/24 09:00 09/06/24 18:28 Tiotropium-Olodaterol INHALATION 10/06/24 08:59 Not Given DAILY JUSTIN Pantoprazole Sodium 40 mg 09/06/24 09:00 09/07/24 08:25 Pantoprazole 40 Mg Tablet PO 40 mg DAILY JUSTIN Administration Perflutren Lipid Microsphere 0 ml 09/07/24 11:40 Perflutren Lipid Microspheres 1.5 Ml Vial Diluted To 10 Ml Total Volume IV PUSH 09/10/24 11:42 ONCE PRN adequate visualization Protocol Potassium Chloride 10 meq 09/06/24 09:00 09/07/24 08:26 Potassium Chloride 10 Meq Er Tablet PO 10 meq DAILY JUSTIN Administration Fluticasone/Salmeterol 2 puff 09/05/24 20:00 09/07/24 08:36 Fluticasone/Salmeterol 230-21 Mcg Inhaler 1 Puff INHALATION 2 puff Q12HRT JUSTIN Administration Tamsulosin HCl 0.8 mg 09/05/24 21:00 09/06/24 20:33 Tamsulosin Hcl 0.4 Mg Capsule PO 0.8 mg HS JUSTIN Administration Tramadol HCl 50 mg 09/05/24 17:16 Tramadol Hcl (*Crx) 50 Mg Tablet PO Q6H PRN Moderate Pain (Scale Score 5-6) Triamcinolone Acetonide 1 applic 09/05/24 17:16 Triamcinolone Acet 0.1% Oint 15 Gm Tube TOPICAL PRN PRN Rash Radiology Results: ITS Impressions Chest X-Ray 09/04/24 13:30 IMPRESSION: Bibasilar atelectasis versus pneumonia more on the left side. Labs Labs: Laboratory Results - last 24 hr 09/07/24 05:45 WBC 10.8 H RBC 3.79 L Hgb 9.1 L Hct 32.1 L MCV 84.7 MCH 24.0 L MCHC 28.3 L RDW 16.5 H Plt Count 212 MPV 8.7 Sodium 140 Potassium 4.1 Chloride 104 Carbon Dioxide 34 H Anion Gap 2 L BUN 35 H Creatinine 1.79 H Estim Creat Clear Calc 33 Estimated GFR 38 L Glucose 99 Calcium 7.9 L Total Bilirubin 0.5 AST 19 ALT 9 Alkaline Phosphatase 90 Total Protein 6.0 L Albumin 3.1 L Quality VTE Prophylaxis VTE prophylaxis: pharmacologic ordered Hospitalist [facility] Advance Care Plan I have confirmed that the patient's Advanced Care Plan is present, code status is documented, or surrogate decision maker is listed in patient medical record.: Yes Medication Reconciliation I have utilized all available resources to obtain, update and review the patients current medications (includes all prescriptions, OTC, herbals, cannabis, and nutritional supplements).: Yes
[2024-09-07] MEDS: PERFLUTREN LIPID MICROSPHERES 1.5 ML VIAL DILUTED TO 10 ML TOTAL VOLUME IV PUSH (14:35)
--- NOTE | 2024-09-07 14:58 | IVDEFINITY ---
Prior to administration of IV Definity the patient was educated on the risks and benefits of the imaging enhancing agent including potential adverse side effects. The patient verbalized understanding. Allergies were verified. No exclusion criteria were identified and at least one of the following inclusion criteria were met: 1) physician request, 2) patient technically difficult to image (per the [place] [employer] guidelines of two or more segments not discernable within the apical view), or 3) questionable left ventricular function. ?
--- NOTE | 2024-09-07 18:06 | P.CONPL_ITS ---
Assessment and Plan Assessment and plan (1) Bronchiectasis with acute exacerbation: Code(s): J47.1 - Bronchiectasis with (acute) exacerbation Status: Acute Assessment and Plan: Patient has baseline chronic respiratory failure on home oxygen, bronchiectasis with history of resistant Pseudomonas, mycobacterial colonization versus low- grade infection, with increased symptoms over the last 2 months and especially the last 2 weeks better on azithromycin orally. He feels significantly better since admission to the hospital. He has light growth of Pseudomonas on his sputum.The susceptibilities are pending. He has had resistant Pseudomonas aeruginosa in the past. He has had a left thoracotomy for an empyema in 2020. Given his fragile state I think it is reasonable to plan for a PICC line and meropenem at home to complete a total 10 day course. He has had 4 days in the hospital, started IV meropenem on September 04. He also tells me that while he was living in [place], he had an infection, required IV antibiotics which he did get as an outpatient. The patient is from this area, moved to [facility] to [facility] 39 years and returned to [place] about 2 years ago when he got and retired. (2) COPD (chronic obstructive pulmonary disease): Qualifiers: COPD type: emphysema Emphysema type: panlobular Qualified Code(s): J 43.1 - Panlobular emphysema Code(s): J44.9 - Chronic obstructive pulmonary disease, unspecified Status: Acute Assessment and Plan: Long history of COPD, prior smoker, at home COPD is controlled with Stiolto Respimat =tiotropium-olodaterol 2.5 mcg/2.5 mcg 2 puffs daily, LAMA LABA combination. He also has a nebulizer for albuterol p.r.n. shortness of breath. (3) Shortness of breath: Code(s): R06.02 - Shortness of breath Status: Acute Assessment and Plan: Worsening shortness breath over the last 2 months with increased sputum production. He has had pulmonary rehab, and this helped him considerably. (4) Bronchiectasis: Code(s): J47.9 - Bronchiectasis, uncomplicated Status: Acute Assessment and Plan: colonized with Pseudomonas and gets infected on occasion, as well. (5) Chronic respiratory failure with hypoxia, on home oxygen therapy: Code(s): J96.11 - Chronic respiratory failure with hypoxia; Z99.81 - Dependence on supplemental oxygen Status: Acute Assessment and Plan: On home O2 2 L rest, 4 L w exertion and sleep. Plan plan: 1) Cancelled CTA. Discussed with Dr. Yogi Fields. He has CKD, and his creat is stable. He is not on higher O2 now, has no symptoms to suggest a PE. Risk versus benefit - > I think he is having exacerbation of bronchiectasis, not an acute or chronic thromboembolic event. 2) He is growing Pseudomonas from his sputum, and in January 2023 it was resistant Pseudomonas He has had 4 days of IV meropenem. It is reasonable to get a PICC line placed and allow him to complete meropenem at home for a 10 day course. 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 HE is off the Wixela because the ICS can increase risk of mycobacterial infections. 4) Continue his Stiolto Respimat 2.5 mcg/2.5 mcg two puffs once a day; LAMA- LABA tiotropium-olodaterol for COPD. He is also on Dupixent for eczema and psoriasis, and Dupixent is now an add on drug for COPD with eosinophils. 5) Continue pulmonary hygiene with a Cornet valve, bronchodilators. Repeat sputum for AFB are pending. The AFB smear is negative, however it takes 6 weeks to confirm if he grows any mycobacteria. I discussed plans with the patient. NPO after MN, plan to get PICC and go home on meropenem to complete 10 days total for Pseudomonas aeruginosa causing an exacerbation of his bronchiectasis. History of Present Illness History of Present Illness Consult date: 09/07/24 Requesting physician: Yogi Fields MD Chief complaint: Pneumonia, COPD exacerbation Narrative: pt seen Sep 07, 2024 18:15 Room 346 NEW: Vik Hill is a 73-year-old man known to our practice, last office visit with Dr Landeros was June 07, 2024. His pulmonary history includes a Left thoracotomy May 2021 for empyema with Strep intermedius; chronic respiratory failure on home oxygen 2 L at rest and 4 L with exertion, COPD, bronchiectasis with prior infections including Pseudomonas aeruginosa and mycobacteria kansasii colonization versus infection, waiting on his initial ID visit at [facility] ID clinic Sep 18. In January 2023, he had a similar admission with resistant Pseudomonas infection, went home with a PICC line to complete meropenem for 10 days. He is on Dupixent for eczema and psoriasis. He uses Wixela and tiotropium-olodaterol for COPD. He has been having a slow downward trajectory since June, getting more short of breath, having more sputum which is yellow-to green, with limitation of his exertion, now only able to walk across his house. At baseline, he coughs about 10 to 20 tissues per day with sputum the size of a quarter. In the last several weeks this is increased to 50 tissues per day, each one having a quarter size of sputum. He contacted our office August 28 with worsening symptoms for the 10 days prior, increased sputum and saturation 88% on 2 liters/minute. He was started on azithromycin and steroids with significant improvement but as soon as he quit taking this, his symptoms rebounded. He called the office on September 03, worse, and came to ER. His initial wbc was 7.9, now 10.8 on Sep 07. His sputum 09/04/24 = many WBC, no epithelial cells, moderate GN bacilli, normal oropharyngeal santiago present, light growth of Pseudomonas aeruginosa susceptibility test is pending. He tested negative for influenza, RSV, and COVID. Chest x-ray showed bibasilar atelectasis versus pneumonia, more on the left. The patient says that yesterday he was taken off of Lasix and his breathing was better, and today was put on it again in his breathing is worse. He used using a Cornet valve which definitely helps to expectorate sputum. DATA * 09/04/24; CXR = The cardiac silhouette is not enlarged. Left bipolar pacemaker. LUNGS: No effusions or pneumothorax. Minimal opacification the lung bases more on the left side. Underlying fibrotic changes. OTHER: No free air under the diaphragm. Degenerative changes of the spine. IMPRESSION: Bibasilar atelectasis versus pneumonia more on the left side. * 03/06/24 and 03/07/24 sputa at [facility] grew mycobacterium kansasii is sensitive to rifabutin, rifampin amikacin, clarithromycin, linezolid, moxifloxacin. It is resistant to Septra, ciprofloxacin, doxycycline, and minocycline. Streptomycin is greater than 32 an clobazam mean is less than 0.015. 06/07/2024: This is a follow-up encounter from 02/02/2024 for GOLD grade 3 group B COPD, bronchiectasis, ANDRZEJ and mycobacterium kansasii infection. On 02/02/2024, regarding his GOLD grade 3 group B COPD. The patient was improving. MONTEZ was 1/8 of a block and this was worse after a fall with a fractured sternum. On Wixela 500-50 at 1 puff b.i.d. and Spiriva Respimat 5 mcg q.h.s., Zyrtec 10 and rescue albuterol inhaler nebulizers which she was using 0 to 3 times a day. He was using guaifenesin 400 b.i.d. and vest therapy 2 times a day. He was using his oxygen as prescribed: None at rest, 2 L with activity and he was wearing 2 L at night. I ordered PFTs, overnight oximetry on 2 L and recommended he use flutter valve if sputum is difficult to expectorate. I encouraged him to continue with pulmonary rehabilitation as he only had 1 session on 01/17/2024 where he exercised for 5 minutes on 2 L nasal cannula. On 02/02/2024, regarding his lower lobe bronchiectasis with nodular infiltrates, his previous workup in 2020 was unrevealing. I repeated immunoglobulins, CBC, Aspergillus IgE, HIV, rheumatoid factor, TOMAS panel, QuantiFERON GOLD, sputum for AFB x3. His baseline expectorations were 10 a day. On 02/02/2024, regarding his ANDRZEJ, he tells me he was tested 10 years ago but could not tolerate a CPAP mask. He has been on 2 L since. I ordered an overnight oximetry on 2 L. 02/08/2024: Overnight oximetry with 2 L nasal cannula with hypoxemia. Will repeat test on 4 L. 02/15/2024: Overnight oximetry on 4 L with adequate oxygenation. 02/17/2024: Immunoglobulins normal, Aspergillus IgE negative, TOMAS cascade positive for ADULT [employer]IVE IN C[employer] antibody at 2.7 with normal being less than 1. Patient had no clinical history of hand arthritis or swollen joints or myositis. 02/20/2024: PFTs demonstrated a severe obstructive abnormality with FEV1 1.12 L, 38% predicted, no bronchodilator response. Hyperinflation. DLCO severely decreased to remain mildly decreased when adjusted for alveolar volume. In comparison to previous pulmonary function test on 09/29/2021 there has been a significant decrease in the FEV1 with no other changes. 03/07/2024 QuantiFERON GOLD negative. 03/07/2024: Sputum with 3+ AFB. Id and sensitivities requested. 03/20/2024: Sputum from 03/07 with AFB growth. Id pending. Sensitivities requested. 03/29/2024: Sputum from 03/07 with mycobacterium kansasii 03/30/2024: Session 13 pulmonary rehab. Exercise time 13 minutes on 3 and 4 L nasal cannula oxygen 04/20/24: Sputum from 03/06 with mycobacterium kansasii. I called the patient and discussed his second positive mycobacterium kansasii sputum, now from 03/06/2024 and 03/07/2024. He states that his breathing does limit him and limits his ADLs. He has stable MONTEZ where he can walk about 20 minutes on oxygen and this is been stable for the last 5 years. He denies fever, change in his cough or phlegm production. Given his worsening FEV1, increase oxygen requirements at night, worsening CT scan, he is in agreement to be referred to [facility]. Referral placed and they are awaiting sensitivities prior to being scheduled. 04/20/2024: 6 minute walk on 2 L nasal cannula. Patient ambulated 213 m (improved from 122 m on 01/23/24). Raul saturation 91%. Today he tells me that He has had no hospitalizations since 02/02/2024. Two and half weeks ago he cut the grass and 1 day after that he noticed shortness of breath and was treated by his PCP with prednisone for 5 days and completely recovered. Currently the patient states he has more phlegm production over the last 4 months. His activity level size remains stable. He completed 13 sessions of pulmonary rehab and then decided to do exercise at home. Two to 3 times a week he works out for an hour. He rides a bike for 20 minutes with a heart rate that goes from 75-80 up to 110-120. After that he does 20 minutes of resistance bands. And after that he does 20 minutes of callus statics. Overall he has noticed no worsening shortness of breath with these activities. The patient denies fever. The patient has some chills. The patient has night sweats less than 1 time a month. The patient has gained weight and gained 1 lb over the last 4 months. The patient continues on Wixela 500-50 at 1 puff b.i.d., Spiriva Respimat 2.5 at 2 puffs q.h.s., guaifenesin 400 mg p.o. b.i.d., Zyrtec 10 mg a day and Dupixent for his psoriasis-eczema. The patient uses rescue albuterol approximately 2 times a month. The patient is not routinely using the vest or flutter valve. The patient is using no oxygen at rest and his home pulse oximetry readings are 91%. He is wearing 2 L with activity and his home pulse oximetry numbers are 88-92%. The patient continues to use 4 L at night as prescribed. The patient's CAT score today is 25. The patient has received the influenza vaccine this fall. The patient will get his COVID vaccine later this month. The patient received the RSV vaccine last year. prior visits 02/02/2024: This is a follow-up encounter from 11/21/2023 for COPD On 11/21/2023, regarding his COPD, he had cough with phlegm production. His MONTEZ was worse and he could only take a trash out to the street and come back. Using rescue nebulizer of albuterol 1-3 times a week. He was on Wixela 500-50 q.12 hours. He takes Dupixent for his eczema and psoriasis. He was treated for COPD exacerbation with a prednisone taper. Using 2 L with exertion and none at rest. Sputum for bacteria, AFB and fungal was ordered for his chronic lower lobe infiltrates. Plan for 6 minute walk and PFTs when he was improved. Consider daliresp in the future. On 11/21/2023, he had multiple pulmonary nodules on his CT scan of the chest 06/30/2023 left greater than right and CT abdomen on 10/15/23 with recommendation to repeat in 3 months on 01/13/2024. 11/22/2023: Sputum demonstrated few epithelial cells, moderate mixed bacterial and growth of normal santiago. 12/29/2023: PCP office visit note states he continues to have difficulty with mobility due to SOB and increased oxygen demand. Despite finishing his oral steroid taper he continued to struggle with MONTEZ. He has fatigue during the day and has leg cramps at night. His attempts to increase his activity or limited by his breathing and peripheral arterial disease in his left leg. 2 L nasal cannula saturation 96%. Lungs were clear to auscultation he was referred to Pulmonary Rehabilitation. 01/13/2024: CT scan of the chest demonstrated severe centrilobular emphysema all lung colvin, bronchiectasis in the bases with mucus plugging, worsening chronic lung disease consistent with chronic infection. 01/23/2024: 6 minute walk on 2 L nasal cannula with baseline saturation 97% and raul saturation 90% with 122 m ambulated. 01/24/2024: Session to of pulmonary rehabilitation. Total exercise time 20 minutes. 01/27/2024: cardiac catheterization at [facility] severe single-vessel coronary artery disease with chronic total occlusion proximal RCA with [id number] collaterals. No significant obstructive disease in the left coronary system. LVEDP 10. Systemic hypertension. Plan continuation of optimal medical treatment including antiplatelet treatment, antianginals, statin. Need for intervention on chronic total occlusion of RCA to be determined based on clinical course. Today he tells me thatafter he received his prednisone at last visit he was breathing much better. The patient has had no hospitalizations or exacerbations since November 21, 2023. Overall the patient states that he is doing better. He is now walking 1/8 of a block and he is getting stronger and able to do more chores around the house. He is able to do his grooming, he can go to the grocery store. Before his fall with sternal fracture he was able to walk 1 block. He does use a cane and has balance issues. He has 1 session of cardiac pulmonary rehab and will continue this in the future. The patient makes 10 phlegm expectorations a day and this is unchanged for him. He denies fever, chills, rigors. Currently the patient is taking Wixela 500-50 at 1 puff b.i.d., Spiriva Respimat 2.5 at 2 puffs q.h.s., albuterol rescue nebs 0 to 3 times a day usually 0 times a day. Albuterol inhaler rescue 1 time in 2 months. Zyrtec 10 mg p.o. q.day, guaifenesin 400 mg p.o. b.i.d., vest therapy 2 times a day. Currently the patient is wearing no oxygen at rest with measured saturations 90-94% at home. With activity wears 2 L. He is wearing 2 L at night. The patient is not smoking or exposed to secondhand smoke. The patient's sinuses are currently controlled. The patient has untreated ANDRZEJ his cannot tolerate the CPAP. He says he sleeps much better with the 2 L nasal cannula on. CAT score today is 24. the patient states he received his flu vaccine, COVID booster and RSV in the fall of 2022. He has received a pneumonia shot. Prior visits Review of Systems 2 Review of Systems: All systems reviewed & are unremarkable except as noted in HPI and below PMFSH Past Medical History Medical History Coronary artery disease severe single vessel coronary artery disease with chronic total occlusion of the proximal RCA with [id number] collaterals Chronic kidney disease, stage 4 (severe) Chronic respiratory failure with hypoxia, on home oxygen therapy Pseudomonas respiratory infection Femoral artery stenosis, left Heart failure with preserved ejection fraction echocardiogram in November 2021 showed normal LV size and function with an EF measured at 66% and impaired diastolic relaxation Chronic anemia Urethral stricture Empyema of left pleural space (05/2021) Pleural fluid grew out strep intermedius and staph hominis. Status post thoracotomy with decortication. Benign prostatic hyperplasia Peripheral vascular disease Status post right carotid endarterectomy. Status post left lower extremity stent. COVID-19 (04/2020) AV block status post [employer]tr[employer] pacemaker placement Chronic kidney disease, stage 3 Psoriasis Eczema Gastroesophageal reflux disease COPD with emphysema Loculated empyema Obstructive sleep apnea On 2 L nasal cannula at nighttime Hypertension Arthritis Surgical History Surgical History History of cardiac catheterization (01/2024) severe single vessel coronary artery disease with chronic total occlusion of the proximal RCA with [id number] collaterals History of dilation of urethra History of thoracotomy (05/2021) Left thoracotomy with decortication for empyema. History of right-sided carotid endarterectomy History of tonsillectomy Status post peripheral artery angioplasty with insertion of stent Left lower extremity. Status post placement of cardiac pacemaker (06/2020) History of hip replacement Bilaterally with revision History of herniorrhaphy Family History Family History Father Heart disease Heart attack Hypertension Cerebrovascular accident Mother Diabetes mellitus Hypertension Asthma Heart disease Sibling Hypertension Social History Social History (Updated 09/04/24 @ 19:10 by Na De Santiago PA-C) Social History: Surrogate medical decision maker: Michelle Schroeder, sister. Code status: Full code. Smoking packs per day: 2 Smoking cigarettes per day: 40.0 Years smoked: 40 Smoking pack-years: 80.00 Smoking status: Former smoker Tobacco type: cigarettes Second hand tobacco smoke exposure: Yes Smoking end date: 08/22/09 Alcohol intake: never Alcohol use details: rarely Substance use: never Substance use type: does not use Do You Feel Safe in your Home?: Yes Lack of Transportation: No Lack of Food: Never True Current Housing: I Have Housing Concerned About Future Housing: No Difficulty Paying Gas/Electric Bills: No Difficulty Paying for Meds: No Currently Unemployed: No Education: Bachelor's Degree Difficulty w/ Childcare or Family Care: No Living arrangements: alone Additional living arrangements comments: . He has 3 children. 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 Spiritual care concerns: No Agree to blood products: Yes Meds Home Medications and Allergies Home Medications ?Medication ?Instructions ?Recorded ?Confirmed ?Type acetaminophen 500 mg tablet 1,000 mg PO Q6H PRN Mild Pain 06/02/21 09/04/24 History (Scale Score 1-4) pantoprazole 40 mg tablet,delayed 40 mg PO DAILY 01/11/22 09/04/24 History release doxepin 25 mg capsule 25 mg PO QHS PRN Sleep 05/15/22 09/04/24 History dupilumab 300 mg/2 mL subcutaneous 300 mg (2 mL) subcut .COMPLEX #4 mL 11/25/22 09/04/24 Rx syringe (DupixOzVision) tamsulosin 0.4 mg capsule 0.8 mg PO HS 01/24/23 09/04/24 History atorvastatin 80 mg tablet 80 mg PO HS 03/22/23 09/04/24 History guaifenesin 400 mg tablet (Mucus 800 mg PO Q12H 06/07/23 09/04/24 History Relief) clopidogrel 75 mg tablet 75 mg PO DAILY 07/21/23 09/04/24 History triamcinolone acetonide 0.1 % 1 applic topical PRN PRN Rash #80 09/01/23 09/04/24 Rx topical ointment grams cilostazol 50 mg tablet 50 mg PO BID 10/15/23 09/04/24 History amlodipine 10 mg tablet 10 mg PO HS 02/02/24 09/04/24 History gabapentin 300 mg capsule 300 mg PO HS PRN Pain #100 caps 03/07/24 09/04/24 Rx finasteride 5 mg tablet 5 mg PO DAILY 04/30/24 09/04/24 History tiotropium 2.5 mcg-olodaterol 2.5 2 puff inhalation DAILY #4 grams 06/07/24 09/04/24 Rx mcg/actuation mist for inhalation furosemide 40 mg tablet 40 mg PO QAM #90 tabs 06/08/24 09/04/24 Rx carvedilol 25 mg tablet See Rx Instructions .Route 06/13/24 09/04/24 Rx .COMPLEX #200 tabs tramadol 50 mg tablet 50 mg PO Q6H PRN Moderate Pain 07/09/24 09/04/24 Rx (Scale Score 5-6) #60 tabs potassium chloride 10 mEq 10 meq PO DAILY #100 caps 07/23/24 09/04/24 Rx capsule,extended release albuterol sulfate 2.5 mg/3 mL 2.5 mg (3 mL) inhalation Q4-6H PRN 08/28/24 09/04/24 Rx (0.083 %) solution for nebulization SOB #180 mL albuterol sulfate 90 mcg/actuation 2 puff inhalation Q6H PRN 09/04/24 09/04/24 History aerosol inhaler shortness of breath or wheezing benzonatate 100 mg capsule 100 mg PO TID PRN cough 09/04/24 09/04/24 History cetirizine 10 mg capsule (Zyrtec) 10 mg PO HS PRN allergy symptoms 09/04/24 09/04/24 History fluticasone 500 mcg-salmeterol 50 1 inh inhalation Q12H 09/04/24 09/04/24 History mcg/dose blistr powdr for inhalation (Wixela Inhub) magnesium 500 mg tablet 500 mg PO DAILY 09/04/24 09/04/24 History multivitamin-ferrous 1 tablet PO DAILY 09/04/24 09/04/24 History fumarate-folic acid 18 mg-400 mcg tablet (Centrum) Allergies Allergy/AdvReac Type Severity Reaction Status Date / Time doxycycline Allergy Unknown Nausea and Verified 09/04/24 13:06 Vomiting oxycodone AdvReac Severe severe Verified 09/04/24 13:06 constipation Vital Signs Vital Signs - 24 hr 09/06/24 19:34 09/06/24 19:34 09/06/24 19:50 Temperature Pulse Rate 83 81 Respiratory Rate 20 20 Blood Pressure Pulse Oximetry 96 Oxygen Delivery Nasal Cannula Oxygen Flow Rate 2 Fraction of Inspired Oxygen 28 09/06/24 20:29 09/06/24 21:28 09/07/24 01:02 Temperature 36.9 C Pulse Rate 88 87 Respiratory Rate 16 Blood Pressure 136/65 Pulse Oximetry 95 93 Oxygen Delivery Nasal Cannula Oxygen Flow Rate 4 Fraction of Inspired Oxygen 36 09/07/24 01:02 09/07/24 01:12 09/07/24 05:08 Temperature 36.9 C Pulse Rate 78 77 78 Respiratory Rate 20 20 16 Blood Pressure 138/71 Pulse Oximetry 100 Oxygen Delivery Oxygen Flow Rate Fraction of Inspired Oxygen 09/07/24 08:26 09/07/24 08:26 09/07/24 08:36 Temperature Pulse Rate 76 Respiratory Rate Blood Pressure Pulse Oximetry 94 Oxygen Delivery Nasal Cannula Nasal Cannula Oxygen Flow Rate 2 4 Fraction of Inspired Oxygen 09/07/24 08:36 09/07/24 14:56 09/07/24 15:03 Temperature Pulse Rate 82 74 76 Respiratory Rate 20 20 20 Blood Pressure Pulse Oximetry Oxygen Delivery Oxygen Flow Rate Fraction of Inspired Oxygen 09/07/24 16:49 Temperature 36.6 C Pulse Rate 75 Respiratory Rate 18 Blood Pressure 145/64 H Pulse Oximetry 96 Oxygen Delivery Oxygen Flow Rate Fraction of Inspired Oxygen Exam 2 Narrative: GEN: Alert, oriented, not in distress. He is on nasal cannula O2 2-4 L, 94% HEENT: pupils are equal, EOMI, symmetrical face; oral membranes moist, absent uvula, Mallampati I airway, minimal maxillary tenderness bilaterally NECK: Trachea is midline CHEST: Equal air entry, symmetric excursion, decreased breath sounds, old scar left posterior thorax from May 2021 thoracotomy for Strep intermedius empyema CV: Regular S1S2 no m/g/r ABD : (+) bowel sounds Extremities : no clubbing, cyanosis, or edema PSYCH: normal thought and speech, gait is not tested Results Laboratory Findings 09/07/24 05:45 09/07/24 05:45 ABG, PT/INR, D-dimer: ABG ABG pH 7.471 (7.350-7.450) H 09/04/24 15:24 ABG pCO2 49.3 mmHg (35.0-45.0) H 09/04/24 15:24 ABG pO2 74.2 mmHg (80.0-100.0) L 09/04/24 15:24 ABG O2 Saturation 95.5 % (95.0-100.0) 09/04/24 15:24 PT/INR, D-dimer PT 14.2 Seconds (11.1-14.7) 09/04/24 15:03 INR 1.1 09/04/24 15:03 Abnormal lab findings: Abnormal Labs 09/04/24 09/04/24 09/05/24 15:03 15:24 05:32 WBC RBC 4.34 L 3.85 L Hgb 10.5 L 9.4 L Hct 38.3 L 33.0 L MCH 24.2 L 24.4 L MCHC 27.4 L 28.5 L RDW 16.7 H 16.5 H Neut % (Auto) 76.5 H Lymph % (Auto) 11.3 L Eos % (Auto) 5.4 H Lymph # (Auto) 0.89 L Eos # (Auto) 0.4 H ABG pH 7.471 H ABG pCO2 49.3 H ABG pO2 74.2 L ABG HCO3 35.2 H ABG O2 Content 14.3 L Total Hemoglobin 10.7 L Carbon Dioxide 35 H 35 H Anion Gap BUN 32 H 32 H Creatinine 1.75 H 1.96 H Estimated GFR 39 L 34 L Glucose 172 H Calcium 8.3 L NT-Pro-B Natriuret Pep 893 H Total Protein Albumin 09/06/24 09/07/24 05:33 05:45 WBC 10.8 H RBC 3.89 L 3.79 L Hgb 9.4 L 9.1 L Hct 33.2 L 32.1 L MCH 24.2 L 24.0 L MCHC 28.3 L 28.3 L RDW 16.7 H 16.5 H Neut % (Auto) Lymph % (Auto) Eos % (Auto) Lymph # (Auto) Eos # (Auto) ABG pH ABG pCO2 ABG pO2 ABG HCO3 ABG O2 Content Total Hemoglobin Carbon Dioxide 34 H 34 H Anion Gap 2 L BUN 31 H 35 H Creatinine 1.76 H 1.79 H Estimated GFR 38 L 38 L Glucose Calcium 8.0 L 7.9 L NT-Pro-B Natriuret Pep Total Protein 6.0 L 6.0 L Albumin 3.2 L 3.1 L
[2024-09-07 18:23] LABS: Mycoplasma IgM Antibody Titer. 21 U/mL
[2024-09-07 18:28] LABS: Pneumococcal Antigen Urine NOT DETECTED
[2024-09-07] MEDS: TAMSULOSIN HCL 0.4 MG CAPSULE 0.8 MG PO (20:17)
[2024-09-07] MEDS: amLODIPine BESYLATE 10 MG TABLET PO (20:18)
[2024-09-07] MEDS: ATORVASTATIN 40 MG TABLET 80 MG PO (20:18)
[2024-09-07] MEDS: AZITHROMYCIN 250 MG TABLET 500 MG PO (20:21)
[2024-09-07 22:58] LABS: Legionella pneumophila Ag Ur. NOT DETECTED
[2024-09-08] VITALS (12 sets, daily range): BP systolic 114–157; BP diastolic 59–94; PULSE 71–100; RESP 16–18; TEMP 36.2–36.9; O2SAT 93–95
[2024-09-08] MEDS: IPRATROPIUM 0.5 MG/ALBUTEROL SULFATE 2.5 MG AMPUL.NEB 3 ML INHALATION ×4 (02:18→19:40)
[2024-09-08 05:28] LABS: Adenovirus DNA Not Detected (Not Detected); Chlamydophila pneumoniae Not Detected (Not Detected); Coronavirus 229E Not Detected (Not Detected); Coronavirus HKU1 Not Detected (Not Detected); Coronavirus NL63 Not Detected (Not Detected); Coronavirus OC43 Not Detected (Not Detected); Human Metapneumovirus Not Detected (Not Detected); Human Parainfluenza Virus 1 Not Detected (Not Detected); Human Parainfluenza Virus 2 Not Detected (Not Detected); Human Parainfluenza Virus 3 Not Detected (Not Detected); Human Parainfluenza Virus 4 Not Detected (Not Detected); Human RSV B Not Detected (Not Detected); Influenza A Not Detected (Not Detected); Influenza B Not Detected (Not Detected); Mycoplasma pneumoniae Not Detected (Not Detected); Rhinovirus/Enterovirus Not Detected (Not Detected)
[2024-09-08] MEDS: cilostazoL 50 MG TABLET PO ×2 (05:36→17:16)
[2024-09-08 05:48] LABS: Hematocrit 32.1 % (42.0-52.0); Mean Corpuscular Hemoglobin 23.9 pg (26-34); Mean Corpuscular Volume 85.4 fl (80-100); Mean Platelet Volume 9.1 fl (7.4-10.4); Platelet Count Result 221 k/mm3 (150-375); Red Blood Count 3.76 M/mm3 (4.6-6.20); Red Cell Distribution Width 16.4 % (11.5-14.5); White Blood Count 9.1 K/mm3 (4.5-10.0)
[2024-09-08 06:00] LABS: Alanine Aminotransferase 9 U/L (6-50); Albumin Level 3.2 g/dL (3.5-5.1); Alkaline Phosphatase 104 U/L (38-126); Anion Gap 4 mmol/L (4-12); Aspartate Amino Transferase 15 U/L (17-59); Bilirubin,Total 0.5 mg/dL (0.2-1.3); Blood Urea Nitrogen 35 mg/dL (9-20); Calcium 8.1 mg/dL (8.4-10.2); Carbon Dioxide 34 mmol/L (22-30); Chloride 102 mmol/L (98-107); Estimated CRCL calculation 36 ml/min; Estimated Glomerular Filt Rate 42; Glucose 88 mg/dL (65-110); Potassium 4.2 mmol/L (3.4-5.0); Sodium 140 mmol/L (137-145)
[2024-09-08] MEDS: LIDOCAINE 1% LOCAL INJ 2 ML AMPUL 5 ML INFILTRATE (08:30)
[2024-09-08] MEDS: POTASSIUM CHLORIDE 10 MEQ ER TABLET PO (09:32)
[2024-09-08] MEDS: LACTASE 3,000 UNIT TABLET 3000 UNIT PO ×3 (09:32→17:18)
[2024-09-08] MEDS: PANTOPRAZOLE 40 MG TABLET PO (09:33)
[2024-09-08] MEDS: ENOXAPARIN 40 MG/0.4 ML SYRINGE SUB-Q (09:33)
[2024-09-08] MEDS: CLOPIDOGREL BISULFATE 75 MG TABLET PO (09:33)
[2024-09-08] MEDS: FINASTERIDE 5 MG TABLET PO (09:33)
[2024-09-08] MEDS: FUROSEMIDE 40 MG TABLET PO (09:33)
[2024-09-08] MEDS: carvediloL 25 MG TABLET BY MOUTH ×2 (09:33→20:42)
[2024-09-08] MEDS: MAGNESIUM 27 MG TABLET (500 MG MAG GLUCONATE) BY MOUTH (09:33)
[2024-09-08] MEDS: guaiFENesin 12 HR 600 MG TABCR 1200 MG PO ×2 (09:33→20:33)
[2024-09-08] MEDS: MULTIVITAMINS /C LUTEIN (CENTRUM SILVER) TABLET *BKC 1 TAB PO (09:33)
[2024-09-08] MEDS: MEROPENEM 1 GM/NS 100 ML 1 GM/100 ML BAG IVPB ×2 (09:40→20:33)
[2024-09-08] MEDS: FLUTICASONE/SALMETEROL 230-21 MCG INHALER 1 PUFF 2 PUFF INHALATION ×2 (09:44→19:40)
--- NOTE | 2024-09-08 12:28 | PM.IMPN ---
Progress Note: A&P Assessment and Plan (1) Pneumonia: Code(s): J18.9 - Pneumonia, unspecified organism Status: Acute (2) Bronchiectasis: Code(s): J47.9 - Bronchiectasis, uncomplicated Status: Acute (3) COPD with emphysema: Qualifiers: Emphysema type: unspecified Qualified Code(s): J43.9 - Emphysema, unspecified Code(s): J43.9 - Emphysema, unspecified Status: Acute (4) Chronic respiratory failure with hypoxia, on home oxygen therapy: Code(s): J96.11 - Chronic respiratory failure with hypoxia; Z99.81 - Dependence on supplemental oxygen Status: Acute (5) Obstructive sleep apnea: Code(s): G47.33 - Obstructive sleep apnea (adult) (pediatric) Status: Chronic (6) Coronary artery disease: Code(s): I25.10 - Atherosclerotic heart disease of [place] coronary artery without angina pectoris Status: Acute Plan Patient uses home oxygen usually 2 L during day time and 4L at night. Patient was a previous smoker and smokes to 1 PPD. Patient follows up with Dr. Landeros has an outpatient. 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 He has an appointment on September 18 with ID specialist over there. Patient has 3 stents in his left leg. Patient follows with and denies any cardiac history. He reports taking Lasix for easing up on his lungs and Carvedilol for BP. 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 Case management is working on social issues and patient will probably stay here this weekend . Exam Narrative: General: Well-developed, nontoxic-appearing gentleman sitting up in bed in no acute distress. Weight: 70.2 kg. BMI: 26.2. HEENT: PERRL, EOMI. Sclera anicteric. Oral mucosa moist. Neck: Supple. No JVD or lymphadenopathy. Respiratory: Respirations are nonlabored and he is speaking in full sentences. Lung sounds are diminished and a bit coarse at the bases. Occasional squeaks at the right base with scattered rales. Mild expiratory wheezing. Cardiovascular: Regular rate and rhythm with S1-S2. Gastrointestinal: Abdomen is soft, nontender, and nondistended with positive bowel sounds. Skin: Warm and dry. No rash or lesions on limited exam. Extremities: No cyanosis, clubbing, or significant edema. Radial and pedal pulses intact. Neurological: Alert. Cranial nerves 2-12 are grossly intact. No gross focal deficits to casual conversation. Psychiatric: Pleasant and cooperative with normal mood and affect. Judgment and insight intact. Objective Data Vital Signs Vital Signs: Vital Signs - 24 hr 09/07/24 14:56 09/07/24 15:03 09/07/24 16:49 Temperature 97.9 F Pulse Rate 74 76 75 Respiratory Rate 20 20 18 Blood Pressure 145/64 H Pulse Oximetry 96 Oxygen Delivery Oxygen Flow Rate 09/07/24 19:59 09/07/24 19:59 09/07/24 20:04 Temperature Pulse Rate 83 80 Respiratory Rate 18 18 Blood Pressure Pulse Oximetry 93 Oxygen Delivery Nasal Cannula Oxygen Flow Rate 2 09/07/24 20:17 09/07/24 20:18 09/08/24 02:18 Temperature 97.9 F Pulse Rate 95 95 88 Respiratory Rate 18 18 Blood Pressure 141/72 H Pulse Oximetry 92 Oxygen Delivery Oxygen Flow Rate 09/08/24 02:25 09/08/24 06:00 09/08/24 09:33 Temperature 98.4 F Pulse Rate 90 77 100 Respiratory Rate 18 16 Blood Pressure 122/59 L Pulse Oximetry 95 Oxygen Delivery Oxygen Flow Rate 09/08/24 09:44 09/08/24 09:44 Temperature Pulse Rate 94 Respiratory Rate 18 Blood Pressure Pulse Oximetry 93 Oxygen Delivery Nasal Cannula Oxygen Flow Rate 2 Intake/Output Intake/Output: Intake & Output 09/05/24 09/06/24 09/07/24 09/08/24 23:59 23:59 23:59 23:59 Intake Total 3406 2750 1680 1160 Output Total 800 750 Balance 2606 1999 1680 1160 Meds/Results Medications: Active Medications Generic Name Dose Route Start Last Admin Trade Name Freq PRN Reason Stop Dose Admin Acetaminophen 1,000 mg 09/05/24 17:16 Acetaminophen 500 Mg Tablet PO Q6H PRN Mild Pain (Scale Score 1-4) Albuterol 2 puff 09/05/24 17:16 Albuterol Sulfate (*Sp) Aerosol 1 Puff INHALATION Q6H PRN shortness of breath or wheezing Albuterol 2.5 mg 09/05/24 17:16 Albuterol Sulfate Neb 2.5 Mg/3 Ml Inh INHALATION Q4-6H PRN Shortness Of Breath Albuterol/Ipratropium 3 ml 09/04/24 20:00 09/08/24 09:44 Ipratropium 0.5 Mg/Albuterol Sulfate 2.5 Mg Ampul.Neb 3 Ml INHALATION 3 ml Q6HRT JUSTIN Administration Amlodipine Besylate 10 mg 09/05/24 21:00 09/07/24 20:18 Amlodipine Besylate 10 Mg Tablet PO 10 mg HS JUSTIN Administration Atorvastatin Calcium 80 mg 09/05/24 21:00 09/07/24 20:18 Atorvastatin 40 Mg Tablet PO 80 mg HS JUSTIN Administration Azithromycin 500 mg 09/07/24 21:00 09/07/24 20:21 Azithromycin 250 Mg Tablet PO 09/13/24 21:01 500 mg QHS JUSTIN Administration Benzonatate 100 mg 09/05/24 17:16 Benzonatate 100 Mg Capsule PO TID PRN cough Carvedilol 25 mg 09/05/24 21:00 09/08/24 09:33 Carvedilol 25 Mg Tablet BY MOUTH 25 mg Q12HR JUSTIN Administration Cilostazol 50 mg 09/06/24 06:30 09/08/24 05:36 Cilostazol 50 Mg Tablet PO 50 mg BIDAC JUSTIN Administration Clopidogrel Bisulfate 75 mg 09/06/24 09:00 09/08/24 09:33 Clopidogrel Bisulfate 75 Mg Tablet PO 75 mg DAILY JUSTIN Administration Doxepin HCl 25 mg 09/05/24 17:16 Doxepin Hcl 25 Mg Capsule PO QHS PRN Sleep Enoxaparin Sodium 40 mg 09/05/24 09:00 09/08/24 09:33 Enoxaparin 40 Mg/0.4 Ml Syringe SUB-Q 40 mg DAILY JUSTIN Administration Finasteride 5 mg 09/06/24 09:00 09/08/24 09:33 Finasteride 5 Mg Tablet PO 5 mg DAILY JUSTIN Administration Furosemide 40 mg 09/06/24 09:00 09/08/24 09:33 Furosemide 40 Mg Tablet PO 40 mg QAM JUSTIN Administration Gabapentin 300 mg 09/05/24 17:16 09/06/24 23:31 Gabapentin 300 Mg Capsule PO 300 mg HS PRN Administration Pain Guaifenesin 1,200 mg 09/04/24 21:00 09/08/24 09:33 Guaifenesin 12 Hr 600 Mg Tabcr PO 1,200 mg Q12HR JUSTIN Administration Meropenem 1 gm in 100 mls @ 200 mls/hr 09/04/24 21:00 09/08/24 09:40 IVPB 200 mls/hr Q12HR JUSTIN Administration Lactase 3,000 unit 09/06/24 18:05 09/08/24 11:20 Lactase 3,000 Unit Tablet PO 3,000 unit TIDWM JUSTIN Administration Loratadine 10 mg 09/05/24 17:27 Loratadine 10 Mg Tablet PO HS PRN allergy symptoms Magnesium Gluconate 27 mg 09/06/24 09:00 09/08/24 09:33 Magnesium 27 Mg Tablet (500 Mg Mag Gluconate) BY MOUTH 27 mg DAILY JUSTIN Administration Multivitamins/Minerals 1 tab 09/06/24 09:00 09/08/24 09:33 Multivitamins /C Lutein (Centrum Silver) Tablet *Bkc PO 1 tab DAILY JUSTIN Administration Non-Formulary Medication 2 puff 09/06/24 09:00 09/06/24 18:28 Tiotropium-Olodaterol INHALATION 10/06/24 08:59 Not Given DAILY JUSTIN Pantoprazole Sodium 40 mg 09/06/24 09:00 09/08/24 09:33 Pantoprazole 40 Mg Tablet PO 40 mg DAILY JUSTIN Administration Potassium Chloride 10 meq 09/06/24 09:00 09/08/24 09:32 Potassium Chloride 10 Meq Er Tablet PO 10 meq DAILY JUSTIN Administration Fluticasone/Salmeterol 2 puff 09/05/24 20:00 09/08/24 09:44 Fluticasone/Salmeterol 230-21 Mcg Inhaler 1 Puff INHALATION 2 puff Q12HRT JUSTIN Administration Sodium Chloride 10 ml 09/08/24 14:00 Saline Lock Flush IV PUSH Q8HR JUSTIN Sodium Chloride 10 ml 09/08/24 09:06 Saline Lock Flush IV PUSH PRN PRN Flush Sodium Chloride 20 ml 09/08/24 09:06 Saline Lock Flush IV PUSH PRN PRN after blood draws Tamsulosin HCl 0.8 mg 09/05/24 21:00 09/07/24 20:17 Tamsulosin Hcl 0.4 Mg Capsule PO 0.8 mg HS JUSTIN Administration Tramadol HCl 50 mg 09/05/24 17:16 Tramadol Hcl (*Crx) 50 Mg Tablet PO Q6H PRN Moderate Pain (Scale Score 5-6) Triamcinolone Acetonide 1 applic 09/05/24 17:16 Triamcinolone Acet 0.1% Oint 15 Gm Tube TOPICAL PRN PRN Rash Radiology Results: ITS Impressions Chest X-Ray 09/04/24 13:30 IMPRESSION: Bibasilar atelectasis versus pneumonia more on the left side. Labs Labs: Laboratory Results - last 24 hr 09/04/24 09/04/24 09/05/24 20:08 23:56 12:30 WBC RBC Hgb Hct MCV MCH MCHC RDW Plt Count MPV Sodium Potassium Chloride Carbon Dioxide Anion Gap BUN Creatinine Estim Creat Clear Calc Estimated GFR Glucose Calcium Total Bilirubin AST ALT Alkaline Phosphatase Total Protein Albumin Nasal RSV Type A (PCR) Not detected Nasal RSV Type B (PCR) Not detected Chlamy pneumoniae PCR Not detected Adenovirus DNA Not detected Human Bocavirus (MIRNA) Not detected Coronavirus Type OC43 Not detected Coronavirus Type HKU1 Not detected Coronavirus Type 229E Not detected Coronavirus Type NL63 Not detected Human Metapneumovir PCR Not detected Influenza A (PCR) Not detected Influenza A (H1) RNA Not detected Influenza A (H3) PCR Not detected Ur L.pneumophila Ag Not detected Mycoplasma pneumon IgM 21 M. pneumoniae DNA Not detected Parainfluenza PCR Not detected Parainfluenza 2 (PCR) Not detected Parainfluenza 3 RNA (PCR) Not detected Parainfluenza 4 (PCR) Not detected Rhino/Enterovirus (MIRNA) Not detected Urine Pneumococcal Ag Not detected Influenza Type B (PCR) Not detected Misc Test Comment see note 09/08/24 05:38 WBC 9.1 RBC 3.76 L Hgb 9.0 L Hct 32.1 L MCV 85.4 MCH 23.9 L MCHC 28.0 L RDW 16.4 H Plt Count 221 MPV 9.1 Sodium 140 Potassium 4.2 Chloride 102 Carbon Dioxide 34 H Anion Gap 4 BUN 35 H Creatinine 1.62 H Estim Creat Clear Calc 36 Estimated GFR 42 L Glucose 88 Calcium 8.1 L Total Bilirubin 0.5 AST 15 L ALT 9 Alkaline Phosphatase 104 Total Protein 6.0 L Albumin 3.2 L Nasal RSV Type A (PCR) Nasal RSV Type B (PCR) Chlamy pneumoniae PCR Adenovirus DNA Human Bocavirus (MIRNA) Coronavirus Type OC43 Coronavirus Type HKU1 Coronavirus Type 229E Coronavirus Type NL63 Human Metapneumovir PCR Influenza A (PCR) Influenza A (H1) RNA Influenza A (H3) PCR Ur L.pneumophila Ag Mycoplasma pneumon IgM M. pneumoniae DNA Parainfluenza PCR Parainfluenza 2 (PCR) Parainfluenza 3 RNA (PCR) Parainfluenza 4 (PCR) Rhino/Enterovirus (MIRNA) Urine Pneumococcal Ag Influenza Type B (PCR) Misc Test Comment Quality VTE Prophylaxis VTE prophylaxis: pharmacologic ordered Hospitalist MIPS Advance Care Plan I have confirmed that the patient's Advanced Care Plan is present, code status is documented, or surrogate decision maker is listed in patient medical record.: Yes Medication Reconciliation I have utilized all available resources to obtain, update and review the patients current medications (includes all prescriptions, OTC, herbals, cannabis, and nutritional supplements).: Yes
[2024-09-08] MEDS: SALINE LOCK FLUSH 10 ML IV PUSH ×2 (16:25→20:44)
[2024-09-08] MEDS: TAMSULOSIN HCL 0.4 MG CAPSULE 0.8 MG PO (20:33)
[2024-09-08] MEDS: AZITHROMYCIN 250 MG TABLET 500 MG PO (20:33)
[2024-09-08] MEDS: ATORVASTATIN 40 MG TABLET 80 MG PO (20:33)
[2024-09-08] MEDS: ACETAMINOPHEN 500 MG TABLET 1000 MG PO (20:35)
[2024-09-08] MEDS: amLODIPine BESYLATE 10 MG TABLET PO (20:42)
--- NOTE | 2024-09-08 20:42 | PC.NURSE ---
BP 157/80 Pulse 84 at time of med administration
[2024-09-09] VITALS (14 sets, daily range): BP systolic 120–126; BP diastolic 60–82; PULSE 68–90; RESP 16–20; TEMP 36.1–36.4; O2SAT 91–99
[2024-09-09] MEDS: IPRATROPIUM 0.5 MG/ALBUTEROL SULFATE 2.5 MG AMPUL.NEB 3 ML INHALATION ×4 (01:32→21:36)
[2024-09-09] MEDS: cilostazoL 50 MG TABLET PO ×2 (05:53→16:40)
[2024-09-09] MEDS: SALINE LOCK FLUSH 10 ML IV PUSH ×3 (05:53→20:23)
[2024-09-09 06:08] LABS: Hematocrit 29.6 % (42.0-52.0); Hemoglobin 8.5 g/dL (14.0-18.0); Mean Corpuscular HGB Conc 28.7 g/dl (32-36); Mean Corpuscular Volume 83.6 fl (80-100); Mean Platelet Volume 9.2 fl (7.4-10.4); Platelet Count Result 213 k/mm3 (150-375); Red Blood Count 3.54 M/mm3 (4.6-6.20); Red Cell Distribution Width 16.1 % (11.5-14.5); White Blood Count 6.8 K/mm3 (4.5-10.0)
[2024-09-09 06:18] LABS: Alanine Aminotransferase 9 U/L (6-50); Albumin Level 3.1 g/dL (3.5-5.1); Alkaline Phosphatase 97 U/L (38-126); Anion Gap 2 mmol/L (4-12); Aspartate Amino Transferase 18 U/L (17-59); Bilirubin,Total 0.5 mg/dL (0.2-1.3); Blood Urea Nitrogen 33 mg/dL (9-20); Calcium 8.4 mg/dL (8.4-10.2); Carbon Dioxide 36 mmol/L (22-30); Chloride 101 mmol/L (98-107); Estimated CRCL calculation 35 ml/min; Estimated Glomerular Filt Rate 41; Glucose 97 mg/dL (65-110); Potassium 4.3 mmol/L (3.4-5.0); Sodium 139 mmol/L (137-145)
[2024-09-09] MEDS: FLUTICASONE/SALMETEROL 230-21 MCG INHALER 1 PUFF 2 PUFF INHALATION ×2 (07:39→21:36)
[2024-09-09 08:09] LABS: Immature Reticulocyte Fraction 9.4 % (3.0-15.9); Reticulocyte Hemoglobin Conten 24.8 pg (28.2-36.6); Reticulocyte Percent 1.12 % (0.7-4.3); Reticulocytes Absolute 0.04 10^6/uL (0.02-0.10)
[2024-09-09 08:16] LABS: Lactate Dehydrogenase 160 U/L (120-246)
[2024-09-09 08:24] LABS: Transferrin 248 mg/dL (206-381)
--- NOTE | 2024-09-09 08:40 | PM.IMPN ---
Progress Note: A&P Assessment and Plan (1) Pneumonia: Code(s): J18.9 - Pneumonia, unspecified organism Status: Acute (2) Bronchiectasis: Code(s): J47.9 - Bronchiectasis, uncomplicated Status: Acute (3) COPD with emphysema: Qualifiers: Emphysema type: unspecified Qualified Code(s): J43.9 - Emphysema, unspecified Code(s): J43.9 - Emphysema, unspecified Status: Acute (4) Chronic respiratory failure with hypoxia, on home oxygen therapy: Code(s): J96.11 - Chronic respiratory failure with hypoxia; Z99.81 - Dependence on supplemental oxygen Status: Acute (5) Obstructive sleep apnea: Code(s): G47.33 - Obstructive sleep apnea (adult) (pediatric) Status: Chronic (6) Coronary artery disease: Code(s): I25.10 - Atherosclerotic heart disease of [place] coronary artery without angina pectoris Status: Acute Plan Patient uses home oxygen usually 2 L during day time and 4L at night. Patient was a previous smoker and smokes to 1 PPD. Patient follows up with Dr. Landeros has an outpatient. 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 He has an appointment on September 18 with ID specialist over there. Patient has 3 stents in his left leg. Patient follows with and denies any cardiac history. He reports taking Lasix for easing up on his lungs and Carvedilol for BP. 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 Possible discharge tomorrow. Continue IV Meropenam. Exam Narrative: General: Well-developed, nontoxic-appearing gentleman sitting up in bed in no acute distress. Weight: 70.2 kg. BMI: 26.2. HEENT: PERRL, EOMI. Sclera anicteric. Oral mucosa moist. Neck: Supple. No JVD or lymphadenopathy. Respiratory: Respirations are nonlabored and he is speaking in full sentences. Lung sounds are diminished and a bit coarse at the bases. Occasional squeaks at the right base with scattered rales. Mild expiratory wheezing. Cardiovascular: Regular rate and rhythm with S1-S2. Gastrointestinal: Abdomen is soft, nontender, and nondistended with positive bowel sounds. Skin: Warm and dry. No rash or lesions on limited exam. Extremities: No cyanosis, clubbing, or significant edema. Radial and pedal pulses intact. Neurological: Alert. Cranial nerves 2-12 are grossly intact. No gross focal deficits to casual conversation. Psychiatric: Pleasant and cooperative with normal mood and affect. Judgment and insight intact. Objective Data Vital Signs Vital Signs: Vital Signs - 24 hr 09/08/24 09:33 09/08/24 09:33 09/08/24 09:44 Temperature Pulse Rate 100 Respiratory Rate Blood Pressure Pulse Oximetry 93 Oxygen Delivery Nasal Cannula Nasal Cannula Oxygen Flow Rate 2 2 Fraction of Inspired Oxygen 09/08/24 09:44 09/08/24 13:41 09/08/24 14:49 Temperature 97.1 F L Pulse Rate 94 78 75 Respiratory Rate 18 16 18 Blood Pressure 114/94 H Pulse Oximetry 94 Oxygen Delivery Oxygen Flow Rate Fraction of Inspired Oxygen 09/08/24 14:59 09/08/24 19:43 09/08/24 19:44 Temperature Pulse Rate 71 82 Respiratory Rate 18 18 Blood Pressure Pulse Oximetry 95 Oxygen Delivery Nasal Cannula Oxygen Flow Rate 2 Fraction of Inspired Oxygen 09/08/24 19:50 09/08/24 20:42 09/08/24 20:42 Temperature 98.4 F Pulse Rate 83 84 84 Respiratory Rate 18 18 Blood Pressure 157/80 H Pulse Oximetry 95 Oxygen Delivery Oxygen Flow Rate Fraction of Inspired Oxygen 09/09/24 01:34 09/09/24 01:41 09/09/24 05:53 Temperature 97.5 F L Pulse Rate 75 68 74 Respiratory Rate 18 18 16 Blood Pressure 126/82 Pulse Oximetry 96 Oxygen Delivery Oxygen Flow Rate Fraction of Inspired Oxygen 09/09/24 07:30 09/09/24 07:30 09/09/24 07:39 Temperature Pulse Rate 81 76 Respiratory Rate 20 20 Blood Pressure Pulse Oximetry 97 Oxygen Delivery Nasal Cannula Oxygen Flow Rate 2 Fraction of Inspired Oxygen 28 Intake/Output Intake/Output: Intake & Output 09/06/24 09/07/24 09/08/24 09/09/24 23:59 23:59 23:59 23:59 Intake Total 2750 1680 2440 150 Output Total 750 Balance 1999 168 2440 150 Meds/Results Medications: Active Medications Generic Name Dose Route Start Last Admin Trade Name Freq PRN Reason Stop Dose Admin Acetaminophen 1,000 mg 09/05/24 17:16 09/08/24 20:35 Acetaminophen 500 Mg Tablet PO 1,000 mg Q6H PRN Administration Mild Pain (Scale Score 1-4) Albuterol 2 puff 09/05/24 17:16 Albuterol Sulfate (*Sp) Aerosol 1 Puff INHALATION Q6H PRN shortness of breath or wheezing Albuterol 2.5 mg 09/05/24 17:16 Albuterol Sulfate Neb 2.5 Mg/3 Ml Inh INHALATION Q4-6H PRN Shortness Of Breath Albuterol/Ipratropium 3 ml 09/04/24 20:00 09/09/24 07:30 Ipratropium 0.5 Mg/Albuterol Sulfate 2.5 Mg Ampul.Neb 3 Ml INHALATION 3 ml Q6HRT JUSTIN Administration Amlodipine Besylate 10 mg 09/05/24 21:00 09/08/24 20:42 Amlodipine Besylate 10 Mg Tablet PO 10 mg HS JUSTIN Administration Atorvastatin Calcium 80 mg 09/05/24 21:00 09/08/24 20:33 Atorvastatin 40 Mg Tablet PO 80 mg HS JUSTIN Administration Azithromycin 500 mg 09/07/24 21:00 09/08/24 20:33 Azithromycin 250 Mg Tablet PO 09/13/24 21:01 500 mg QHS JUSTIN Administration Benzonatate 100 mg 09/05/24 17:16 Benzonatate 100 Mg Capsule PO TID PRN cough Carvedilol 25 mg 09/05/24 21:00 09/08/24 20:42 Carvedilol 25 Mg Tablet BY MOUTH 25 mg Q12HR JUSTIN Administration Cilostazol 50 mg 09/06/24 06:30 09/09/24 05:53 Cilostazol 50 Mg Tablet PO 50 mg BIDAC JUSTIN Administration Clopidogrel Bisulfate 75 mg 09/06/24 09:00 09/08/24 09:33 Clopidogrel Bisulfate 75 Mg Tablet PO 75 mg DAILY JUSTIN Administration Doxepin HCl 25 mg 09/05/24 17:16 Doxepin Hcl 25 Mg Capsule PO QHS PRN Sleep Enoxaparin Sodium 40 mg 09/05/24 09:00 09/08/24 09:33 Enoxaparin 40 Mg/0.4 Ml Syringe SUB-Q 40 mg DAILY JUSTIN Administration Finasteride 5 mg 09/06/24 09:00 09/08/24 09:33 Finasteride 5 Mg Tablet PO 5 mg DAILY JUSTIN Administration Furosemide 40 mg 09/06/24 09:00 09/08/24 09:33 Furosemide 40 Mg Tablet PO 40 mg QAM JUSTIN Administration Gabapentin 300 mg 09/05/24 17:16 09/06/24 23:31 Gabapentin 300 Mg Capsule PO 300 mg HS PRN Administration Pain Guaifenesin 1,200 mg 09/04/24 21:00 09/08/24 20:33 Guaifenesin 12 Hr 600 Mg Tabcr PO 1,200 mg Q12HR JUSTIN Administration Meropenem 1 gm in 100 mls @ 200 mls/hr 09/04/24 21:00 09/08/24 21:03 IVPB Infused Q12HR JUSTIN Infusion Lactase 3,000 unit 09/06/24 18:05 09/08/24 17:18 Lactase 3,000 Unit Tablet PO 3,000 unit TIDWM JUSTIN Administration Loratadine 10 mg 09/05/24 17:27 Loratadine 10 Mg Tablet PO HS PRN allergy symptoms Magnesium Gluconate 27 mg 09/06/24 09:00 09/08/24 09:33 Magnesium 27 Mg Tablet (500 Mg Mag Gluconate) BY MOUTH 27 mg DAILY JUSTIN Administration Multivitamins/Minerals 1 tab 09/06/24 09:00 09/08/24 09:33 Multivitamins /C Lutein (Centrum Silver) Tablet *Bkc PO 1 tab DAILY JUSTIN Administration Non-Formulary Medication 2 puff 09/06/24 09:00 09/06/24 18:28 Tiotropium-Olodaterol INHALATION 10/06/24 08:59 Not Given DAILY JUSTIN Pantoprazole Sodium 40 mg 09/06/24 09:00 09/08/24 09:33 Pantoprazole 40 Mg Tablet PO 40 mg DAILY JUSTIN Administration Potassium Chloride 10 meq 09/06/24 09:00 09/08/24 09:32 Potassium Chloride 10 Meq Er Tablet PO 10 meq DAILY JUSTIN Administration Fluticasone/Salmeterol 2 puff 09/05/24 20:00 09/09/24 07:39 Fluticasone/Salmeterol 230-21 Mcg Inhaler 1 Puff INHALATION 2 puff Q12HRT JUSTIN Administration Sodium Chloride 10 ml 09/08/24 14:00 09/09/24 05:53 Saline Lock Flush IV PUSH 10 ml Q8HR JUSTIN Administration Sodium Chloride 10 ml 09/08/24 09:06 Saline Lock Flush IV PUSH PRN PRN Flush Sodium Chloride 20 ml 09/08/24 09:06 Saline Lock Flush IV PUSH PRN PRN after blood draws Tamsulosin HCl 0.8 mg 09/05/24 21:00 09/08/24 20:33 Tamsulosin Hcl 0.4 Mg Capsule PO 0.8 mg HS JUSTIN Administration Tramadol HCl 50 mg 09/05/24 17:16 Tramadol Hcl (*Crx) 50 Mg Tablet PO Q6H PRN Moderate Pain (Scale Score 5-6) Triamcinolone Acetonide 1 applic 09/05/24 17:16 Triamcinolone Acet 0.1% Oint 15 Gm Tube TOPICAL PRN PRN Rash Radiology Results: ITS Impressions Chest X-Ray 09/04/24 13:30 IMPRESSION: Bibasilar atelectasis versus pneumonia more on the left side. Labs Labs: Laboratory Results - last 24 hr 09/09/24 05:54 WBC 6.8 RBC 3.54 L Hgb 8.5 L Hct 29.6 L MCV 83.6 MCH 24.0 L MCHC 28.7 L RDW 16.1 H Plt Count 213 MPV 9.2 Absolute Retic 0.04 Percent Retic 1.12 Immature Retic Fraction 9.4 Retic Hgb Content 24.8 L Sodium 139 Potassium 4.3 Chloride 101 Carbon Dioxide 36 H Anion Gap 2 L BUN 33 H Creatinine 1.66 H Estim Creat Clear Calc 35 Estimated GFR 41 L Glucose 97 Calcium 8.4 Transferrin 248 Total Bilirubin 0.5 AST 18 ALT 9 Alkaline Phosphatase 97 Lactate Dehydrogenase 160 Total Protein 6.0 L Albumin 3.1 L Quality VTE Prophylaxis VTE prophylaxis: pharmacologic ordered Hospitalist MIPS Advance Care Plan I have confirmed that the patient's Advanced Care Plan is present, code status is documented, or surrogate decision maker is listed in patient medical record.: Yes Medication Reconciliation I have utilized all available resources to obtain, update and review the patients current medications (includes all prescriptions, OTC, herbals, cannabis, and nutritional supplements).: Yes
[2024-09-09] MEDS: carvediloL 25 MG TABLET BY MOUTH ×2 (09:08→20:09)
[2024-09-09] MEDS: FUROSEMIDE 40 MG TABLET PO (09:08)
[2024-09-09] MEDS: POTASSIUM CHLORIDE 10 MEQ ER TABLET PO (09:08)
[2024-09-09] MEDS: MULTIVITAMINS /C LUTEIN (CENTRUM SILVER) TABLET *BKC 1 TAB PO (09:08)
[2024-09-09] MEDS: PANTOPRAZOLE 40 MG TABLET PO (09:08)
[2024-09-09] MEDS: LACTASE 3,000 UNIT TABLET 3000 UNIT PO ×3 (09:08→16:40)
[2024-09-09] MEDS: guaiFENesin 12 HR 600 MG TABCR 1200 MG PO ×2 (09:08→20:09)
[2024-09-09] MEDS: FINASTERIDE 5 MG TABLET PO (09:08)
[2024-09-09] MEDS: MAGNESIUM 27 MG TABLET (500 MG MAG GLUCONATE) BY MOUTH (09:08)
[2024-09-09] MEDS: CLOPIDOGREL BISULFATE 75 MG TABLET PO (09:08)
[2024-09-09] MEDS: ENOXAPARIN 40 MG/0.4 ML SYRINGE SUB-Q (09:10)
[2024-09-09] MEDS: MEROPENEM 1 GM/NS 100 ML 1 GM/100 ML BAG IVPB ×2 (09:21→20:10)
[2024-09-09 10:25] LABS: Iron 33 ug/dL (49-181)
[2024-09-09 10:35] LABS: Percent Iron Saturation 9 % (20-50)
[2024-09-09] MEDS: AZITHROMYCIN 250 MG TABLET 500 MG PO (20:09)
[2024-09-09] MEDS: TAMSULOSIN HCL 0.4 MG CAPSULE 0.8 MG PO (20:09)
[2024-09-09] MEDS: ATORVASTATIN 40 MG TABLET 80 MG PO (20:09)
[2024-09-09] MEDS: amLODIPine BESYLATE 10 MG TABLET PO (20:09)
[2024-09-09] MEDS: GABAPENTIN 300 MG CAPSULE PO (21:16)
[2024-09-10] VITALS (15 sets, daily range): BP systolic 127–131; BP diastolic 54–79; PULSE 71–87; RESP 16–20; TEMP 36.1–36.4; O2SAT 92–99
[2024-09-10] MEDS: IPRATROPIUM 0.5 MG/ALBUTEROL SULFATE 2.5 MG AMPUL.NEB 3 ML INHALATION ×4 (03:03→19:55)
[2024-09-10] MEDS: cilostazoL 50 MG TABLET PO ×2 (06:06→16:58)
[2024-09-10] MEDS: SALINE LOCK FLUSH 10 ML IV PUSH ×3 (06:06→20:17)
[2024-09-10 06:24] LABS: Hematocrit 29.9 % (42.0-52.0); Hemoglobin 8.5 g/dL (14.0-18.0); Mean Corpuscular HGB Conc 28.4 g/dl (32-36); Mean Corpuscular Hemoglobin 23.9 pg (26-34); Mean Corpuscular Volume 84.2 fl (80-100); Mean Platelet Volume 9.3 fl (7.4-10.4); Platelet Count Result 230 k/mm3 (150-375); Red Blood Count 3.55 M/mm3 (4.6-6.20); Red Cell Distribution Width 16.1 % (11.5-14.5); White Blood Count 6.2 K/mm3 (4.5-10.0)
[2024-09-10 06:40] LABS: Alanine Aminotransferase 10 U/L (6-50); Albumin Level 3.1 g/dL (3.5-5.1); Alkaline Phosphatase 96 U/L (38-126); Anion Gap 3 mmol/L (4-12); Aspartate Amino Transferase 17 U/L (17-59); Bilirubin,Total 0.5 mg/dL (0.2-1.3); Blood Urea Nitrogen 31 mg/dL (9-20); Calcium 8.4 mg/dL (8.4-10.2); Carbon Dioxide 36 mmol/L (22-30); Chloride 99 mmol/L (98-107); Estimated CRCL calculation 35 ml/min; Estimated Glomerular Filt Rate 41; Glucose 84 mg/dL (65-110); Potassium 4.3 mmol/L (3.4-5.0); Sodium 138 mmol/L (137-145)
[2024-09-10] MEDS: FLUTICASONE/SALMETEROL 230-21 MCG INHALER 1 PUFF 2 PUFF INHALATION (07:30)
[2024-09-10] MEDS: guaiFENesin 12 HR 600 MG TABCR 1200 MG PO ×2 (09:23→20:11)
[2024-09-10] MEDS: ENOXAPARIN 40 MG/0.4 ML SYRINGE SUB-Q (09:23)
[2024-09-10] MEDS: PANTOPRAZOLE 40 MG TABLET PO (09:24)
[2024-09-10] MEDS: MAGNESIUM 27 MG TABLET (500 MG MAG GLUCONATE) BY MOUTH (09:24)
[2024-09-10] MEDS: FUROSEMIDE 40 MG TABLET PO (09:24)
[2024-09-10] MEDS: POTASSIUM CHLORIDE 10 MEQ ER TABLET PO (09:24)
[2024-09-10] MEDS: LACTASE 3,000 UNIT TABLET 3000 UNIT PO ×3 (09:24→16:58)
[2024-09-10] MEDS: FINASTERIDE 5 MG TABLET PO (09:24)
[2024-09-10] MEDS: MULTIVITAMINS /C LUTEIN (CENTRUM SILVER) TABLET *BKC 1 TAB PO (09:24)
[2024-09-10] MEDS: CLOPIDOGREL BISULFATE 75 MG TABLET PO (09:24)
[2024-09-10] MEDS: carvediloL 25 MG TABLET BY MOUTH ×2 (09:24→20:11)
[2024-09-10] MEDS: MEROPENEM 1 GM/NS 100 ML 1 GM/100 ML BAG IVPB ×2 (09:25→20:12)
--- NOTE | 2024-09-10 13:56 | P.PNPL_ITS ---
Progress Note: A&P Assessment and Plan (1) Bronchiectasis with acute exacerbation: Code(s): J47.1 - Bronchiectasis with (acute) exacerbation Status: Acute Assessment and Plan: Patient has baseline chronic respiratory failure on home oxygen, bronchiectasis with history of resistant Pseudomonas, mycobacterial colonization versus low- grade infection, with increased symptoms over the last 2 months and especially the last 2 weeks better on azithromycin orally. He feels significantly better since admission to the hospital. He has light growth of Pseudomonas on his sputum.The susceptibilities are pending. He has had resistant Pseudomonas aeruginosa in the past. He has had a left thoracotomy for an empyema in 2020. Given his fragile state I think it is reasonable to plan for a PICC line and meropenem at home to complete a total 10 day course. He has had 4 days in the hospital, started IV meropenem on September 04. Of note, patient received home meropenem for 14 days on 01/26/2023. He also tells me that while he was living in [place], he had an infection, required IV antibiotics which he did get as an outpatient. The patient is from this area, moved to [facility] to [facility] 39 years and returned to [place] about 2 years ago when he got and retired. 09/10/24: Patient tells me head is improved. Overall he says he is breathing better than he has in the last few months. He still has some cough and shortness of breath. He denies fever, chills, rigors. His phlegm is improving. When I enter the room he is on 2 L with saturation 95%. I turned him to room air and his saturations remained 93%. White blood cell count is 6.2. Creatinine is 1.66. He is afebrile. His Pseudomonas is sensitive to meropenem and resistant to ciprofloxacin and Levaquin. Plan: From a pulmonary perspective patient is ready to be discharged on these pulmonary medications: Home Meropenem 1 g q.12 hours for total of 14 days. Last dose 09/17/2024. Azithromycin 250 mg p.o. q.h.s. x4 days, last dose on 09/13/2024. Stiolto Respimat 2.5-2.5 at 2 puffs q.a.m.. Rescue albuterol 2 puffs q.4 hours p.r.n. shortness of breath or wheezing Guaifenesin 400 mg p.o. b.i.d.. Zyrtec 10 mg q.day Oxygen at rest and with activity with goal saturation 90-94%. Currently is requiring none at rest. Oxygen when sleeps 4 L per nasal cannula. Vest treatment for sputum expectoration at least once a day. follow-up in the Pulmonary Clinic on previously scheduled appointment on 09/24/2024. Discussed with Dr. Fields. Will sign off. Call with questions. (2) COPD (chronic obstructive pulmonary disease): Qualifiers: COPD type: emphysema Emphysema type: panlobular Qualified Code(s): J43.1 - Panlobular emphysema Code(s): J44.9 - Chronic obstructive pulmonary disease, unspecified Status: Acute Assessment and Plan: Long history of COPD, prior smoker, at home COPD is controlled with Stiolto Respimat =tiotropium-olodaterol 2.5 mcg/2.5 mcg 2 puffs daily, LAMA LABA combination. He also has a nebulizer for albuterol p.r.n. shortness of breath. (3) Bronchiectasis: Code(s): J47.9 - Bronchiectasis, uncomplicated Status: Acute Assessment and Plan: colonized with Pseudomonas and gets infected on occasion, as well. Patient required home meropenem on 01/26/2023 for 14 days. Plan: Will complete 14 days of home meropenem with the last scheduled dose on 09/17/2024. 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 Unclear if this is active infection versus colonization. Repeat AFBs pending. Plan: Patient to follow-up with [facility] on September 18, 2024. Subjective Date/time seen: 09/10/24 13:56 Interval history: 09/07/24: NEW: Vik Hill is a 73-year-old man known to our practice, last office visit with Dr Landeros was June 07, 2024. His pulmonary history includes a Left thoracotomy May 2021 for empyema with Strep intermedius; chronic r espiratory failure on home oxygen 2 L at rest and 4 L with exertion, COPD, br onchiectasis with prior infections including Pseudomonas aeruginosa and mycobacteria kansasii colonization versus infection, waiting on his initial ID visit at [facility] ID clinic Sep 18. In January 2023, he had a similar admission with resistant Pseudomonas infection, went home with a PICC line to complete meropenem for 10 days. He is on Dupixent for eczema and psoriasis. He uses Wixela and tiotropium-olodaterol for COPD. He has been having a slow downward trajectory since June, getting more short of breath, having more sputum which is yellow-to green, with limitation of his exertion, now only able to walk across his house. At baseline, he coughs about 10 to 20 tissues per day with sputum the size of a quarter. In the last several weeks this is increased to 50 tissues per day, each one having a quarter size of sputum. He contacted our office August 28 with worsening symptoms for the 10 days prior, increased sputum and saturation 88% on 2 liters/minute. He was started on azithromycin and steroids with significant improvement but as soon as he quit taking this, his symptoms rebounded. He called the office on September 03, worse, and came to ER. His initial wbc was 7.9, now 10.8 on Sep 07. His sputum 09/04/24 = many WBC, no epithelial cells, moderate GN bacilli, normal oropharyngeal santiago present, light growth of Pseudomonas aeruginosa suscepti bility test is pending. He tested negative for influenza, RSV, and COVID. Chest x-ray showed bibasilar atelectasis versus pneumonia, more on the left. The patient says that yesterday he was taken off of Lasix and his breathing was better, and today was put on it again in his breathing is worse. He used using a Cornet valve which definitely helps to expectorate sputum. 09/10/24: Patient tells me head is improved. Overall he says he is breathing better than he has in the last few months. He still has some cough and shortness of breath. He denies fever, chills, rigors. His phlegm is improving. When I enter the room he is on 2 L with saturation 95%. I turned him to room air and his saturations remained 93%. White blood cell count is 6.2. Creatinine is 1.66. He is afebrile. His Pseudomonas is sensitive to meropenem and resistant to ciprofloxacin and Levaquin. DATA * 09/04/24; CXR = The cardiac silhouette is not enlarged. Left bipolar pacemaker. LUNGS: No effusions or pneumothorax. Minimal opacification the lung bases more on the left side. Underlying fibrotic changes. OTHER: No free air under the diaphragm. Degenerative changes of the spine. IMPRESSION: Bibasilar atelectasis versus pneumonia more on the left side. * 03/06/24 and 03/07/24 sputa at [facility] grew mycobacterium kansasii is sensitive to rifabutin, rifampin amikacin, clarithromycin, linezolid, moxifloxacin. It is resistant to Septra, ciprofloxacin, doxycycline, and minocycline. Streptomycin is greater than 32 an clobazam mean is less than 0.015. Last office visit note: 06/07/2024: This is a follow-up encounter from 02/02/2024 for GOLD grade 3 group B COPD, bronchiectasis, ANDRZEJ and mycobacterium kansasii infection. On 02/02/2024, regarding his GOLD grade 3 group B COPD. The patient was improving. MONTEZ was 1/8 of a block and this was worse after a fall with a fractured sternum. On Wixela 500-50 at 1 puff b.i.d. and Spiriva Respimat 5 mcg q.h.s., Zyrtec 10 and rescue albuterol inhaler nebulizers which she was using 0 to 3 times a day. He was using guaifenesin 400 b.i.d. and vest therapy 2 times a day. He was using his oxygen as prescribed: None at rest, 2 L with activity and he was wearing 2 L at night. I ordered PFTs, overnight oximetry on 2 L and recommended he use flutter valve if sputum is difficult to expectorate. I encouraged him to continue with pulmonary rehabilitation as he only had 1 session on 01/17/2024 where he exercised for 5 minutes on 2 L nasal cannula. On 02/02/2024, regarding his lower lobe bronchiectasis with nodular infiltrates, his previous workup in 2020 was unrevealing. I repeated immunoglobulins, CBC, Aspergillus IgE, HIV, rheumatoid factor, TOMAS panel, QuantiFERON GOLD, sputum for AFB x3. His baseline expectorations were 10 a day. On 02/02/2024, regarding his ANDRZEJ, he tells me he was tested 10 years ago but could not tolerate a CPAP mask. He has been on 2 L since. I ordered an overnight oximetry on 2 L. 02/08/2024: Overnight oximetry with 2 L nasal cannula with hypoxemia. Will repeat test on 4 L. 02/15/2024: Overnight oximetry on 4 L with adequate oxygenation. 02/17/2024: Immunoglobulins normal, Aspergillus IgE negative, TOMAS cascade positive for [employer] antibody at 2.7 with normal being less than 1. Patient had no clinical history of hand arthritis or swollen joints or myositis. 02/20/2024: PFTs demonstrated a severe obstructive abnormality with FEV1 1.12 L, 38% predicted, no bronchodilator response. Hyperinflation. DLCO severely decreased to remain mildly decreased when adjusted for alveolar volume. In comparison to previous pulmonary function test on 09/29/2021 there has been a significant decrease in the FEV1 with no other changes. 03/07/2024 QuantiFERON GOLD negative. 03/07/2024: Sputum with 3+ AFB. Id and sensitivities requested. 03/20/2024: Sputum from 03/07 with AFB growth. Id pending. Sensitivities requested. 03/29/2024: Sputum from 03/07 with mycobacterium kansasii 03/30/2024: Session 13 pulmonary rehab. Exercise time 13 minutes on 3 and 4 L nasal cannula oxygen 04/20/24: Sputum from 03/06 with mycobacterium kansasii. I called the patient and discussed his second positive mycobacterium kansasii sputum, now from 03/06/2024 and 03/07/2024. He states that his breathing does limit him and limits his ADLs. He has stable MONTEZ where he can walk about 20 minutes on oxygen and this is been stable for the last 5 years. He denies fever, change in his cough or phlegm production. Given his worsening FEV1, increase oxygen requirements at night, worsening CT scan, he is in agreement to be referred to [facility]. Referral placed and they are a waiting sensitivities prior to being scheduled. 04/20/2024: 6 minute walk on 2 L nasal cannula. Patient ambulated 213 m (improved from 122 m on 01/23/24). Raul saturation 91%. Today he tells me that He has had no hospitalizations since 02/02/2024. Two and half weeks ago he cut the grass and 1 day after that he noticed shortness of breath and was treated by his PCP with prednisone for 5 days and completely recovered. Currently the patient states he has more phlegm production over the last 4 months. His activity level size remains stable. He completed 13 sessions of pulmonary rehab and then decided to do exercise at home. Two to 3 times a week he works out for an hour. He rides a bike for 20 minutes with a heart rate that goes from 75-80 up to 110-120. After that he does 20 minutes of resistance bands. And after that he does 20 minutes of callus statics. Overall he has noticed no worsening shortness of breath with these activities. The patient denies fever. The patient has some chills. The patient has night sweats less than 1 time a month. The patient has gained weight and gained 1 lb over the last 4 months. The patient continues on Wixela 500-50 at 1 puff b.i.d., Spiriva Respimat 2.5 at 2 puffs q.h.s., guaifenesin 400 mg p.o. b.i.d., Zyrtec 10 mg a day and Dupixent for his psoriasis-eczema. The patient uses rescue albuterol approximately 2 times a month. The patient is not routinely using the vest or flutter valve. The patient is using no oxygen at rest and his home pulse oximetry readings are 91%. He is wearing 2 L with activity and his home pulse oximetry numbers are 88-92%. The patient continues to use 4 L at night as prescribed. The patient's CAT score today is 25. The patient has received the influenza vaccine this fall. The patient will get his COVID vaccine later this month. The patient received the RSV vaccine last year. prior visits 02/02/2024: This is a follow-up encounter from 11/21/2023 for COPD On 11/21/2023, regarding his COPD, he had cough with phlegm production. His MONTEZ was worse and he could only take a trash out to the street and come back. Using rescue nebulizer of albuterol 1-3 times a week. He was on Wixela 500-50 q.12 hours. He takes Dupixent for his eczema and psoriasis. He was treated for COPD exacerbation with a prednisone taper. Using 2 L with exertion and none at rest. Sputum for bacteria, AFB and fungal was ordered for his chronic lower lobe infiltrates. Plan for 6 minute walk and PFTs when he was improved. Consider dalires in the future. On 11/21/2023, he had multiple pulmonary nodules on his CT scan of the chest 06/30/2023 left greater than right and CT abdomen on 10/15/23 with recommendation to repeat in 3 months on 01/13/2024. 11/22/2023: Sputum demonstrated few epithelial cells, moderate mixed bacterial and growth of normal santiago. 12/29/2023: PCP office visit note states he continues to have difficulty with mobility due to SOB and increased oxygen demand. Despite finishing his oral steroid taper he continued to struggle with MONTEZ. He has fatigue during the day and has leg cramps at night. His attempts to increase his activity or limited by his breathing and peripheral arterial disease in his left leg. 2 L nasal cannula saturation 96%. Lungs were clear to auscultation he was referred to Pulmonary Rehabilitation. 01/13/2024: CT scan of the chest demonstrated severe centrilobular emphysema all lung colvin, bronchiectasis in the bases with mucus plugging, worsening chronic lung disease consistent with chronic infection. 01/23/2024: 6 minute walk on 2 L nasal cannula with baseline saturation 97% and raul saturation 90% with 122 m ambulated. 01/24/2024: Session to of pulmonary rehabilitation. Total exercise time 20 minutes. 01/27/2024: cardiac catheterization at [facility] [place] severe single-vessel coronary artery disease with chronic total occlusion proximal RCA with [id number] collaterals. No significant obstructive disease in the left coronary system. LVEDP 10. Systemic hypertension. Plan continuation of optimal medical treatment including antiplatelet treatment, antianginals, statin. Need for intervention on chronic total occlusion of RCA to be determined based on clinical course. Today he tells me thatafter he received his prednisone at last visit he was breathing much better. The patient has had no hospitalizations or exacerbations since November 21, 2023. Overall the patient states that he is doing better. He is now walking 1/8 of a block and he is getting stronger and able to do more chores around the house. He is able to do his grooming, he can go to the grocery store. Before his fall with sternal fracture he was able to walk 1 block. He does use a cane and has balance issues. He has 1 session of cardiac pulmonary rehab and will continue this in the future. The patient makes 10 phlegm expectorations a day and this is unchanged for him. He denies fever, chills, rigors. Currently the patient is taking Wixela 500-50 at 1 puff b.i.d., Spiriva Respimat 2.5 at 2 puffs q.h.s., albuterol rescue nebs 0 to 3 times a day usually 0 times a day. Albuterol inhaler rescue 1 time in 2 months. Zyrtec 10 mg p.o. q.day, guaifenesin 400 mg p.o. b.i.d., vest therapy 2 times a day. Currently the patient is wearing no oxygen at rest with measured saturations 90-94% at home. With activity wears 2 L. He is wearing 2 L at night. The patient is not smoking or exposed to secondhand smoke. The patient's sinuses are currently controlled. The patient has untreated ANDRZEJ his cannot tolerate the CPAP. He says he sleeps much better with the 2 L nasal cannula on. CAT score today is 24. the patient states he received his flu vaccine, COVID booster and RSV in the fall of 2022. He has received a pneumonia shot. Review of Systems Constitutional: Constitutional: Reports no additional constitutional complaints Eyes: Eyes: Reports no additional eye complaints ENT: Reports system reviewed and no additional complaints, except as documented Cardiovascular: Cardiovascular: Reports no additional cardiovascular complaints Respiratory: Respiratory: Reports no additional respiratory complaints Gastrointestinal: Gastrointestinal: Reports no additional gastrointestinal complaints Musculoskeletal: Musculoskeletal: Reports no additional musculoskeletal complaints Neurologic: Reports system reviewed and no additional complaints, except as documented Psychiatric: Psychiatric: Reports no additional psychiatric complaints Endocrine: Endocrine: Reports no additional endocrine complaints Hematologic/Lymphatic: Hematologic/Lymphatic: Reports no additional hematologic/lymphatic complaints Allergic/Immunologic: Allergic/Immunologic: Reports no additional allergic/immunologic complaints Exam Const: General: cooperative, healthy appearing and comfortable Orientation/consciousness: oriented to person, oriented to place and oriented to time HENMT: Head: normal to inspection Ears: hearing grossly normal bilaterally Eyes: General: appearance normal, both eyes and all related structures Neck: Neck: normal visual inspection Chest: Chest palpation & inspection: normal inspection of the chest Resp: Effort & Inspection: normal respiratory effort and able to speak in complete sentences Auscultation: crackles, no rales, no rhonchi, no wheezes and lung sounds not diminished Other: few basilar crackles and no wheezes Cardio: Jugular venous distension: no JVD GI: Inspection: normal to inspection GI Palp: No abdominal tenderness Skin: General skin exam: normal color Neuro: General: oriented to person, oriented to place and oriented to time Extrem: General: normal to inspection Psych: Appearance: grossly normal Objective Data Vital Signs Vital Signs: Vital Signs - 24 hr 09/09/24 13:58 09/09/24 20:09 09/09/24 21:36 Temperature Pulse Rate 80 80 77 Respiratory Rate 20 20 Blood Pressure Pulse Oximetry Oxygen Delivery Oxygen Flow Rate 09/09/24 21:39 09/09/24 21:48 09/09/24 22:00 Temperature 36.4 C Pulse Rate 75 89 Respiratory Rate 20 18 Blood Pressure 120/65 Pulse Oximetry 91 97 Oxygen Delivery Nasal Cannula Oxygen Flow Rate 2 09/10/24 03:04 09/10/24 06:00 09/10/24 07:30 Temperature 36.3 C L Pulse Rate 78 71 76 Respiratory Rate 20 20 18 Blood Pressure 127/54 L Pulse Oximetry 98 94 Oxygen Delivery Nasal Cannula Oxygen Flow Rate 3 09/10/24 07:30 09/10/24 07:40 09/10/24 08:00 Temperature Pulse Rate 76 77 Respiratory Rate 18 18 Blood Pressure Pulse Oximetry 92 Oxygen Delivery Nasal Cannula Oxygen Flow Rate 2 09/10/24 09:20 09/10/24 09:24 Temperature Pulse Rate 87 Respiratory Rate Blood Pressure 127/70 Pulse Oximetry Oxygen Delivery Oxygen Flow Rate Intake/Output Intake/Output: Intake & Output 09/07/24 09/08/24 09/09/24 09/10/24 23:59 23:59 23:59 23:59 Intake Total 1680 2440 2200 1370 Output Total 800 Balance 1680 2440 2200 570 Meds/Results Medications: Active Medications Generic Name Dose Route Start Last Admin Trade Name Freq PRN Reason Stop Dose Admin Acetaminophen 1,000 mg 09/05/24 17:16 09/08/24 20:35 Acetaminophen 500 Mg Tablet PO 1,000 mg Q6H PRN Administration Mild Pain (Scale Score 1-4) Albuterol 2 puff 09/05/24 17:16 Albuterol Sulfate (*Sp) Aerosol 1 Puff INHALATION Q6H PRN shortness of breath or wheezing Albuterol 2.5 mg 09/05/24 17:16 Albuterol Sulfate Neb 2.5 Mg/3 Ml Inh INHALATION Q4-6H PRN Shortness Of Breath Albuterol/Ipratropium 3 ml 09/04/24 20:00 09/10/24 07:30 Ipratropium 0.5 Mg/Albuterol Sulfate 2.5 Mg Ampul.Neb 3 Ml INHALATION 3 ml Q6HRT JUSTIN Administration Amlodipine Besylate 10 mg 09/05/24 21:00 09/09/24 20:09 Amlodipine Besylate 10 Mg Tablet PO 10 mg HS JUSTIN Administration Atorvastatin Calcium 80 mg 09/05/24 21:00 09/09/24 20:09 Atorvastatin 40 Mg Tablet PO 80 mg HS JUSTIN Administration Azithromycin 500 mg 09/07/24 21:00 09/09/24 20:09 Azithromycin 250 Mg Tablet PO 09/13/24 21:01 500 mg QHS JUSTIN Administration Benzonatate 100 mg 09/05/24 17:16 Benzonatate 100 Mg Capsule PO TID PRN cough Carvedilol 25 mg 09/05/24 21:00 09/10/24 09:24 Carvedilol 25 Mg Tablet BY MOUTH 25 mg Q12HR JUSTIN Administration Cilostazol 50 mg 09/06/24 06:30 09/10/24 06:06 Cilostazol 50 Mg Tablet PO 50 mg BIDAC JUSTIN Administration Clopidogrel Bisulfate 75 mg 09/06/24 09:00 09/10/24 09:24 Clopidogrel Bisulfate 75 Mg Tablet PO 75 mg DAILY JUSTIN Administration Doxepin HCl 25 mg 09/05/24 17:16 Doxepin Hcl 25 Mg Capsule PO QHS PRN Sleep Enoxaparin Sodium 40 mg 09/05/24 09:00 09/10/24 09:23 Enoxaparin 40 Mg/0.4 Ml Syringe SUB-Q 40 mg DAILY JUSTIN Administration Finasteride 5 mg 09/06/24 09:00 09/10/24 09:24 Finasteride 5 Mg Tablet PO 5 mg DAILY JUSTIN Administration Furosemide 40 mg 09/06/24 09:00 09/10/24 09:24 Furosemide 40 Mg Tablet PO 40 mg QAM JUSTIN Administration Gabapentin 300 mg 09/05/24 17:16 09/09/24 21:16 Gabapentin 300 Mg Capsule PO 300 mg HS PRN Administration Pain Guaifenesin 1,200 mg 09/04/24 21:00 09/10/24 09:23 Guaifenesin 12 Hr 600 Mg Tabcr PO 1,200 mg Q12HR JUSTIN Administration Meropenem 1 gm in 100 mls @ 200 mls/hr 09/04/24 21:00 09/10/24 09:25 IVPB 200 mls/hr Q12HR JUSTIN Administration Lactase 3,000 unit 09/06/24 18:05 09/10/24 12:42 Lactase 3,000 Unit Tablet PO 3,000 unit TIDWM JUSTIN Administration Loratadine 10 mg 09/05/24 17:27 Loratadine 10 Mg Tablet PO HS PRN allergy symptoms Magnesium Gluconate 27 mg 09/06/24 09:00 09/10/24 09:24 Magnesium 27 Mg Tablet (500 Mg Mag Gluconate) BY MOUTH 27 mg DAILY JUSTIN Administration Multivitamins/Minerals 1 tab 09/06/24 09:00 09/10/24 09:24 Multivitamins /C Lutein (Centrum Silver) Tablet *Bkc PO 1 tab DAILY [facility] Administration Pantoprazole Sodium 40 mg 09/06/24 09:00 09/10/24 09:24 Pantoprazole 40 Mg Tablet PO 40 mg DAILY JUSTIN Administration Potassium Chloride 10 meq 09/06/24 09:00 09/10/24 09:24 Potassium Chloride 10 Meq Er Tablet PO 10 meq DAILY JUSTIN Administration Sodium Chloride 10 ml 09/08/24 14:00 09/10/24 06:06 Saline Lock Flush IV PUSH 10 ml Q8HR JUSTIN Administration Sodium Chloride 10 ml 09/08/24 09:06 Saline Lock Flush IV PUSH PRN PRN Flush Sodium Chloride 20 ml 09/08/24 09:06 Saline Lock Flush IV PUSH PRN PRN after blood draws Tamsulosin HCl 0.8 mg 09/05/24 21:00 09/09/24 20:09 Tamsulosin Hcl 0.4 Mg Capsule PO 0.8 mg HS JUSTIN Administration Tramadol HCl 50 mg 09/05/24 17:16 Tramadol Hcl (*Crx) 50 Mg Tablet PO Q6H PRN Moderate Pain (Scale Score 5-6) Triamcinolone Acetonide 1 applic 09/05/24 17:16 Triamcinolone Acet 0.1% Oint 15 Gm Tube TOPICAL PRN PRN Rash Radiology Results: ITS Impressions Chest X-Ray 09/04/24 13:30 IMPRESSION: Bibasilar atelectasis versus pneumonia more on the left side. Labs Labs: Laboratory Results - last 24 hr 09/05/24 09/10/24 12:30 06:08 WBC 6.2 RBC 3.55 L Hgb 8.5 L Hct 29.9 L MCV 84.2 MCH 23.9 L MCHC 28.4 L RDW 16.1 H Plt Count 230 MPV 9.3 Sodium 138 Potassium 4.3 Chloride 99 Carbon Dioxide 36 H Anion Gap 3 L BUN 31 H Creatinine 1.66 H Estim Creat Clear Calc 35 Estimated GFR 41 L Glucose 84 Calcium 8.4 Total Bilirubin 0.5 AST 17 ALT 10 Alkaline Phosphatase 96 Total Protein 6.0 L Albumin 3.1 L SARS-CoV-2 RNA (RT-PCR) Not detected
--- NOTE | 2024-09-10 14:55 | PCNFU ---
Nutrition Follow-Up Complete: Unintended weight loss as related to COPD as evidenced by 8 ibs weight loss in 2-3 months. Goal: Adequate Intake of at least 75% of meals/supplements Patient is meeting goal. No new goal. Pt current nutrition is Heart Healthy with Ensure compact BID. Last recorded weight is 79.7 kg, up from 78.2 kg on admit. Bowel Motility: +BM reported 09/08 Labs Reviewed:Cr 1.66. GFR 41, BUN 31 Meds Noted:Protonix, Meropenem, Mucinex Skin: WNL Additional Notes: Patient remains a heart healthy diet with ensure compact BID. Oral Intake's have been > 75% of meals. Patient is drinking diet supplements. Agree with diet orders. Will monitor weight, labs, skin, diet orders, meds every 7 days.
[2024-09-10] MEDS: ALBUTEROL SULFATE NEB 2.5 MG/3 ML INH INHALATION (15:01)
--- NOTE | 2024-09-10 15:24 | P.PNIM_ITS ---
Progress Note: A&P Assessment and Plan (1) Pneumonia: Code(s): J18.9 - Pneumonia, unspecified organism Status: Acute (2) Bronchiectasis: Code(s): J47.9 - Bronchiectasis, uncomplicated Status: Acute (3) COPD with emphysema: Qualifiers: Emphysema type: unspecified Qualified Code(s): J43.9 - Emphysema, unspecified Code(s): J43.9 - Emphysema, unspecified Status: Acute (4) Chronic respiratory failure with hypoxia, on home oxygen therapy: Code(s): J96.11 - Chronic respiratory failure with hypoxia; Z99.81 - Dependence on supplemental oxygen Status: Acute (5) Obstructive sleep apnea: Code(s): G47.33 - Obstructive sleep apnea (adult) (pediatric) Status: Chronic (6) Coronary artery disease: Code(s): I25.10 - Atherosclerotic heart disease of hughes coronary artery without angina pectoris Status: Acute Plan Patient uses home oxygen usually 2 L during day time and 4L at night. Patient was a previous smoker and smokes to 1 PPD. Patient follows up with Dr. Landeros has an outpatient. 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 He has an appointment on September 18 with ID specialist over there. Patient has 3 stents in his left leg. Patient follows with and denies any cardiac history. He reports taking Lasix for easing up on his lungs and Carvedilol for BP. 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 Landeros who advised to continue meropenem for 14 days. Patient will receive meropenem until 28th morning . Patient continues to feel better. Dr. Landeros will give recommendation for his nebulizer during discharge. Patient is pending discharge due to social issues on receiving meropenem. Exam Narrative: General: Well-developed, nontoxic-appearing gentleman sitting up in bed in no acute distress. Weight: 70.2 kg. BMI: 26.2. HEENT: PERRL, EOMI. Sclera anicteric. Oral mucosa moist. Neck: Supple. No JVD or lymphadenopathy. Respiratory: Respirations are nonlabored and he is speaking in full sentences. Lung sounds are diminished and a bit coarse at the bases. Occasional squeaks at the right base with scattered rales. Mild expiratory wheezing. Cardiovascular: Regular rate and rhythm with S1-S2. Gastrointestinal: Abdomen is soft, nontender, and nondistended with positive bowel sounds. Skin: Warm and dry. No rash or lesions on limited exam. Extremities: No cyanosis, clubbing, or significant edema. Radial and pedal p ulses intact. Neurological: Alert. Cranial nerves 2-12 are grossly intact. No gross focal deficits to casual conversation. Psychiatric: Pleasant and cooperative with normal mood and affect. Judgment and insight intact. Objective Data Vital Signs Vital Signs: Vital Signs - 24 hr 09/09/24 20:09 09/09/24 21:36 09/09/24 21:39 Temperature Pulse Rate 80 77 Respiratory Rate 20 Blood Pressure Pulse Oximetry 91 Oxygen Delivery Nasal Cannula Oxygen Flow Rate 2 09/09/24 21:48 09/09/24 22:00 09/10/24 03:04 Temperature 97.6 F Pulse Rate 75 89 78 Respiratory Rate 20 18 20 Blood Pressure 120/65 Pulse Oximetry 97 Oxygen Delivery Oxygen Flow Rate 09/10/24 06:00 09/10/24 07:30 09/10/24 07:30 Temperature 97.4 F L Pulse Rate 71 76 76 Respiratory Rate 20 18 18 Blood Pressure 127/54 L Pulse Oximetry 98 94 Oxygen Delivery Nasal Cannula Oxygen Flow Rate 3 09/10/24 07:40 09/10/24 08:00 09/10/24 09:20 Temperature Pulse Rate 77 Respiratory Rate 18 Blood Pressure 127/70 Pulse Oximetry 92 Oxygen Delivery Nasal Cannula Oxygen Flow Rate 2 09/10/24 09:24 09/10/24 14:00 Temperature 96.9 F L Pulse Rate 87 85 Respiratory Rate 16 Blood Pressure 131/69 Pulse Oximetry 95 Oxygen Delivery Oxygen Flow Rate Intake/Output Intake/Output: Intake & Output 09/07/24 09/08/24 09/09/24 09/10/24 23:59 23:59 23:59 23:59 Intake Total 1680 2440 2200 1370 Output Total 800 Balance 1680 2440 2200 570 Meds/Results Medications: Active Medications Generic Name Dose Route Start Last Admin Trade Name Freq PRN Reason Stop Dose Admin Acetaminophen 1,000 mg 09/05/24 17:16 09/08/24 20:35 Acetaminophen 500 Mg Tablet PO 1,000 mg Q6H PRN Administration Mild Pain (Scale Score 1-4) Albuterol 2 puff 09/05/24 17:16 Albuterol Sulfate (*Sp) Aerosol 1 Puff INHALATION Q6H PRN shortness of breath or wheezing Albuterol 2.5 mg 09/05/24 17:16 09/10/24 15:01 Albuterol Sulfate Neb 2.5 Mg/3 Ml Inh INHALATION 2.5 mg Q4-6H PRN Administration Shortness Of Breath Amlodipine Besylate 10 mg 09/05/24 21:00 09/09/24 20:09 Amlodipine Besylate 10 Mg Tablet PO 10 mg HS JUSTIN Administration Atorvastatin Calcium 80 mg 09/05/24 21:00 09/09/24 20:09 Atorvastatin 40 Mg Tablet PO 80 mg HS JUSTIN Administration Azithromycin 500 mg 09/07/24 21:00 09/09/24 20:09 Azithromycin 250 Mg Tablet PO 09/13/24 21:01 500 mg QHS JUSTIN Administration Benzonatate 100 mg 09/05/24 17:16 Benzonatate 100 Mg Capsule PO TID PRN cough Carvedilol 25 mg 09/05/24 21:00 09/10/24 09:24 Carvedilol 25 Mg Tablet BY MOUTH 25 mg Q12HR JUSTIN Administration Cilostazol 50 mg 09/06/24 06:30 09/10/24 06:06 Cilostazol 50 Mg Tablet PO 50 mg BIDAC JUSTIN Administration Clopidogrel Bisulfate 75 mg 09/06/24 09:00 09/10/24 09:24 Clopidogrel Bisulfate 75 Mg Tablet PO 75 mg DAILY JUSTIN Administration Doxepin HCl 25 mg 09/05/24 17:16 Doxepin Hcl 25 Mg Capsule PO QHS PRN Sleep Enoxaparin Sodium 40 mg 09/05/24 09:00 09/10/24 09:23 Enoxaparin 40 Mg/0.4 Ml Syringe SUB-Q 40 mg DAILY JUSTIN Administration Finasteride 5 mg 09/06/24 09:00 09/10/24 09:24 Finasteride 5 Mg Tablet PO 5 mg DAILY JUSTIN Administration Furosemide 40 mg 09/06/24 09:00 09/10/24 09:24 Furosemide 40 Mg Tablet PO 40 mg QAM JUSTIN Administration Gabapentin 300 mg 09/05/24 17:16 09/09/24 21:16 Gabapentin 300 Mg Capsule PO 300 mg HS PRN Administration Pain Guaifenesin 1,200 mg 09/04/24 21:00 09/10/24 09:23 Guaifenesin 12 Hr 600 Mg Tabcr PO 1,200 mg Q12HR JUSTIN Administration Meropenem 1 gm in 100 mls @ 200 mls/hr 09/04/24 21:00 09/10/24 09:25 IVPB 09/17/24 23:59 200 mls/hr Q12HR JUSTIN Administration Lactase 3,000 unit 09/06/24 18:05 09/10/24 12:42 Lactase 3,000 Unit Tablet PO 3,000 unit TIDWM JUSTIN Administration Loratadine 10 mg 09/05/24 17:27 Loratadine 10 Mg Tablet PO HS PRN allergy symptoms Magnesium Gluconate 27 mg 09/06/24 09:00 09/10/24 09:24 Magnesium 27 Mg Tablet (500 Mg Mag Gluconate) BY MOUTH 27 mg DAILY JUSTIN Administration Multivitamins/Minerals 1 tab 09/06/24 09:00 09/10/24 09:24 Multivitamins /C Lutein (Centrum Silver) Tablet *Bkc PO 1 tab DAILY JUSTIN Administration Pantoprazole Sodium 40 mg 09/06/24 09:00 09/10/24 09:24 Pantoprazole 40 Mg Tablet PO 40 mg DAILY JUSTIN Administration Potassium Chloride 10 meq 09/06/24 09:00 09/10/24 09:24 Potassium Chloride 10 Meq Er Tablet PO 10 meq DAILY JUSTIN Administration Sodium Chloride 10 ml 09/08/24 14:00 09/10/24 06:06 Saline Lock Flush IV PUSH 10 ml Q8HR JUSTIN Administration Sodium Chloride 10 ml 09/08/24 09:06 Saline Lock Flush IV PUSH PRN PRN Flush Sodium Chloride 20 ml 09/08/24 09:06 Saline Lock Flush IV PUSH PRN PRN after blood draws Tamsulosin HCl 0.8 mg 09/05/24 21:00 09/09/24 20:09 Tamsulosin Hcl 0.4 Mg Capsule PO 0.8 mg HS JUSTIN Administration Tramadol HCl 50 mg 09/05/24 17:16 Tramadol Hcl (*Crx) 50 Mg Tablet PO Q6H PRN Moderate Pain (Scale Score 5-6) Triamcinolone Acetonide 1 applic 09/05/24 17:16 Triamcinolone Acet 0.1% Oint 15 Gm Tube TOPICAL PRN PRN Rash Umeclidinium/Vilanterol 1 puff 09/10/24 14:15 Umeclidinium/Vilanterol 62.5-25 Mcg Ellipta INHALATION DAILYRT [facility] Radiology Results: ITS Impressions Chest X-Ray 09/04/24 13:30 IMPRESSION: Bibasilar atelectasis versus pneumonia more on the left side. Labs Labs: Laboratory Results - last 24 hr 09/10/24 06:08 WBC 6.2 RBC 3.55 L Hgb 8.5 L Hct 29.9 L MCV 84.2 MCH 23.9 L MCHC 28.4 L RDW 16.1 H Plt Count 230 MPV 9.3 Sodium 138 Potassium 4.3 Chloride 99 Carbon Dioxide 36 H Anion Gap 3 L BUN 31 H Creatinine 1.66 H Estim Creat Clear Calc 35 Estimated GFR 41 L Glucose 84 Calcium 8.4 Total Bilirubin 0.5 AST 17 ALT 10 Alkaline Phosphatase 96 Total Protein 6.0 L Albumin 3.1 L Quality VTE Prophylaxis VTE prophylaxis: pharmacologic ordered Hospitalist [facility] Advance Care Plan I have confirmed that the patient's Advanced Care Plan is present, code status is documented, or surrogate decision maker is listed in patient medical record.: Yes Medication Reconciliation I have utilized all available resources to obtain, update and review the patients current medications (includes all prescriptions, OTC, herbals, cannabis, and nutritional supplements).: Yes
[2024-09-10] MEDS: ATORVASTATIN 40 MG TABLET 80 MG PO (20:11)
[2024-09-10] MEDS: TAMSULOSIN HCL 0.4 MG CAPSULE 0.8 MG PO (20:11)
[2024-09-10] MEDS: AZITHROMYCIN 250 MG TABLET 500 MG PO (20:11)
[2024-09-10] MEDS: amLODIPine BESYLATE 10 MG TABLET PO (20:11)
[2024-09-10] MEDS: ACETAMINOPHEN 500 MG TABLET 1000 MG PO (20:12)
[2024-09-11] VITALS (8 sets, daily range): BP systolic 121–153; BP diastolic 63–68; PULSE 71–90; RESP 16–20; TEMP 36.1–36.2; O2SAT 92–100
[2024-09-11] MEDS: cilostazoL 50 MG TABLET PO (05:38)
[2024-09-11] MEDS: SALINE LOCK FLUSH 10 ML IV PUSH ×2 (05:39→14:05)
[2024-09-11 05:48] LABS: Hematocrit 30.2 % (42.0-52.0); Hemoglobin 8.8 g/dL (14.0-18.0); Mean Corpuscular HGB Conc 29.1 g/dl (32-36); Mean Corpuscular Hemoglobin 24.6 pg (26-34); Mean Corpuscular Volume 84.6 fl (80-100); Mean Platelet Volume 9.4 fl (7.4-10.4); Platelet Count Result 243 k/mm3 (150-375); Red Blood Count 3.57 M/mm3 (4.6-6.20); White Blood Count 5.7 K/mm3 (4.5-10.0)
[2024-09-11 06:03] LABS: Alanine Aminotransferase 11 U/L (6-50); Albumin Level 3.2 g/dL (3.5-5.1); Alkaline Phosphatase 98 U/L (38-126); Anion Gap 6 mmol/L (4-12); Aspartate Amino Transferase 22 U/L (17-59); Bilirubin,Total 0.5 mg/dL (0.2-1.3); Blood Urea Nitrogen 33 mg/dL (9-20); Calcium 8.2 mg/dL (8.4-10.2); Carbon Dioxide 35 mmol/L (22-30); Chloride 97 mmol/L (98-107); Estimated CRCL calculation 34 ml/min; Estimated Glomerular Filt Rate 40; Glucose 88 mg/dL (65-110); Potassium 4.4 mmol/L (3.4-5.0); Sodium 138 mmol/L (137-145)
[2024-09-11] MEDS: IPRATROPIUM 0.5 MG/ALBUTEROL SULFATE 2.5 MG AMPUL.NEB 3 ML INHALATION ×2 (08:54→13:37)
[2024-09-11] MEDS: UMECLIDINIUM/VILANTEROL 62.5-25 MCG ELLIPTA 1 PUFF INHALATION (08:54)
[2024-09-11] MEDS: FUROSEMIDE 40 MG TABLET PO (10:00)
[2024-09-11] MEDS: CLOPIDOGREL BISULFATE 75 MG TABLET PO (10:00)
[2024-09-11] MEDS: POTASSIUM CHLORIDE 10 MEQ ER TABLET PO (10:00)
[2024-09-11] MEDS: FINASTERIDE 5 MG TABLET PO (10:00)
[2024-09-11] MEDS: guaiFENesin 12 HR 600 MG TABCR 1200 MG PO (10:01)
[2024-09-11] MEDS: PANTOPRAZOLE 40 MG TABLET PO (10:01)
[2024-09-11] MEDS: MAGNESIUM 27 MG TABLET (500 MG MAG GLUCONATE) BY MOUTH (10:01)
[2024-09-11] MEDS: MEROPENEM 1 GM/NS 100 ML 1 GM/100 ML BAG IVPB (10:01)
[2024-09-11] MEDS: ENOXAPARIN 40 MG/0.4 ML SYRINGE SUB-Q (10:01)
[2024-09-11] MEDS: carvediloL 25 MG TABLET BY MOUTH (10:01)
[2024-09-11] MEDS: MULTIVITAMINS /C LUTEIN (CENTRUM SILVER) TABLET *BKC 1 TAB PO (10:01)
[2024-09-11] MEDS: LACTASE 3,000 UNIT TABLET 3000 UNIT PO ×2 (10:01→14:04)
--- NOTE | 2024-09-11 13:21 | P.DS_ITS ---
DS: Admitting Diagnosis Discharge Date 09/11/24 Admitting Diagnosis Shortness of breath. 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 The patient provides the following history. He gives a 1 month history of worsening shortness of breath from baseline and at [facility] he was exposed to his daughter who had an upper respiratory tract infection. Shortly thereafter he had an increase in phlegm production and worsening cough for which she was prescribed a Z-Danilo and a short course of steroids. He felt better for only a few days and was placed on another Z-Danilo. Unfortunately he does not notice any improvement and he continues to feel poorly. He is getting short of breath when walking from the bedroom to the kitchen. He has to stop frequently to cough and catch his breath. Cough is productive of yellowish-green sputum. He also endorses subjective fever and night sweats. Appetite has been fair. He has occasional loose stools which is not unusual for him with antibiotics. He denies documented fever, sore throat, chest pain, pleuritic pain, nausea, vomiting, edema, calf pain, and hemoptysis. Of note he has an upcoming appointment with the Infect[facility] Clinic at [facility] for his history Mycobacterium kansasii infection. In the ED: He was afebrile on arrival with stable vital signs. SpO2 has been in the mid 90s on his usual 2 L. Labs were significant for WBC count of 7.9, hemoglobin 10.5, BUN 32, creatinine 1.75, troponin less than 0.012, CRP less than 0.5, proBNP 893. He tested negative for influenza, RSV, and COVID. Chest x-ray showed bibasilar atelectasis versus pneumonia, more on the left. ED physician spoke with the on-call wire bound box machine helper who recommended admission for IV antibiotics due to his history. He received levofloxacin 750 mg however given history of fluoroquinolone resistant Pseudomonas aeruginosa in sputum, that was changed to meropenem and he has also been started on azithromycin given history of mycobacterium. Patient today is at his baseline oxygen requirement, discharged home with home health, to complete meropenem on 09/18/24. patient is ambulating with walker but noted he ambulates with walking stick at home. Pulmonology was consulted adn was part of his care. F/u with PCP in 3-5 days F/u with Pulm as instructed Time Spent with Patient Time attestation: Total time spent providing and/or coordinating discharge services: DS: Data Data Completed and Pending Labs on day of discharge: Labs from last 24 hours 09/11/24 09/09/24 05:37 09:23 WBC 5.7 RBC 3.57 L Hgb 8.8 L Hct 30.2 L MCV 84.6 MCH 24.6 L MCHC 29.1 L RDW 16.0 H Plt Count 243 MPV 9.4 Haptoglobin 271 H Sodium 138 Potassium 4.4 Chloride 97 L Carbon Dioxide 35 H Anion Gap 6 BUN 33 H Creatinine 1.70 H Estim Creat Clear Calc 34 Estimated GFR 40 L Glucose 88 Calcium 8.2 L Total Bilirubin 0.5 AST 22 ALT 11 Alkaline Phosphatase 98 Total Protein 6.0 L Albumin 3.2 L Preliminary micro results at discharge 09/06/24 17:09 Acid Fast Bacilli Culture - Preliminary Sputum 09/07/24 07:50 Acid Fast Bacilli Culture - Preliminary Sputum 09/05/24 06:16 Acid Fast Bacilli Culture - Preliminary Sputum Discharge Plan Discharge Attending physician on discharge: Bethany Reza Consulting providers: Radha Jasmine; Ilir Stover Discharging Clinician: Bethany Reza Patient Disposition: Home Health Service Activity: as tolerated Diet: as tolerated Discharge Instructions: Per Care Coordination, patient to discharge with [facility] ([phone]) and [facility] infusion ) for home IV antibiotic infusion through 09/18/24. Please fax discharge instructions and medication sheets to . Dr. Talon Landeros, ([phone]) will follow home health and antibiotic therapy. Patient Instructions: Antibiotic Form Patient Language: Lithuanian Stand Alone Forms: General Discharge Information Follow-up/Referrals: Radha Jasmine MD [Physician] - ( Follow-up with pulmonology as instructed.) Daniela Willoughby NP [Primary Care Provider] - (follow-up PCP in 3-5 days.) Discharge Medications: New azithromycin [Zithromax] 250 mg Tablet 500 mg PO QHS 2 Days Qty: 4 0RF Continued guaifenesin [Mucus Relief] 400 mg tablet 800 mg PO Q12H clopidogrel 75 mg tablet 75 mg PO DAILY tiotropium-olodaterol 2.5-2.5 mcg/actuation mist 2 puff inhalation DAILY Qty: 4 6RF pantoprazole 40 mg tablet,delayed release (DR/EC) 40 mg PO DAILY amlodipine 10 mg tablet 10 mg PO HS finasteride 5 mg tablet 5 mg PO DAILY tamsulosin 0.4 mg capsule 0.8 mg PO HS cilostazol 50 mg tablet 50 mg PO BID acetaminophen 500 mg Tablet 1,000 mg PO Q6H PRN (Reason: Mild Pain (Scale Score 1-4)) Patient Comments: usually once a day doxepin 25 mg capsule 25 mg PO QHS PRN (Reason: Sleep) atorvastatin 80 mg tablet 80 mg PO HS albuterol sulfate 90 mcg/actuation HFA aerosol inhaler 2 puff INHALATION Q6H PRN (Reason: shortness of breath or wheezing) Centrum 18-400 mg-mcg tablet 1 tablet PO DAILY fluticasone propion-salmeterol [Wixela Inhub] 500-50 mcg/dose blister with device 1 inh INHALATION Q12H magnesium 500 mg tablet 500 mg PO DAILY Zyrtec 10 mg capsule 10 mg PO HS PRN (Reason: allergy symptoms) benzonatate 100 mg capsule 100 mg PO TID PRN (Reason: cough) Dupixent Syringe 300 mg/2 mL syringe 300 mg subcut .COMPLEX Qty: 4 10RF Rx Instructions: 300 mg subcut 1 every 14 days; for rash on the 1st and 15th of every month triamcinolone acetonide 0.1 % ointment 1 applic topical PRN PRN (Reason: Rash) Qty: 80 0RF Rx Instructions: apply to rash on elbows gabapentin 300 mg capsule 300 mg PO HS PRN (Reason: Pain) Qty: 100 1RF Patient Comments: TAKES EVERY NIGHT furosemide 40 mg tablet 40 mg PO QAM Qty: 90 1RF carvedilol 25 mg tablet See Rx Instructions .ROUTE .COMPLEX Qty: 200 1RF Dose Instruction: TAKE 1 TABLET BY MOUTH EVERY 12 HOURS Rx Instructions: TAKE 1 TABLET BY MOUTH EVERY 12 HOURS tramadol 50 mg tablet 50 mg PO Q6H PRN (Reason: Moderate Pain (Scale Score 5-6)) Qty: 60 0RF potassium chloride 10 mEq capsule, extended release 10 meq PO DAILY Qty: 100 1RF albuterol sulfate 2.5 mg /3 mL (0.083 %) solution for nebulization 2.5 mg inhalation Q4-6H PRN (Reason: SOB) Qty: 180 6RF Date of admission: 09/06/24 09:05 Primary Care Provider: Daniela Willoughby Admitting Provider: Shelia Swanson Attending physician on admission: Yogi Fields Condition: Stable
[2024-09-11 21:13] LABS: Folic Acid 16.8 ng/mL (2.76->20)
--- OUTSIDE RECORDS SUMMARY | 2024-09-12 15:29 | XMS_ITS | Encounter Summary ---
Author Organization [facility] Address [address] [place] [address] Phone Care Team Providers Care School Psychologist Assistant Name Role Phone DagmarRanulfo martinez Primary Care Provider [phone] Encounter Details Date Type Department Care Team (Late st Contact Info) Description 02/05/2022 Orders Only [facility] Nephrology [facility]pertension [address] [facility], [address] [place] [address] Garret Kahn MD [address] [facility], [address] [place] [address] Social History Tobacco Use Types Packs/Day Years Used Date Smoking Tobacco: Former Smokeless Tobacco: Never Alcohol Use Standard Drinks/Week Comments Not Currently 0 (1 standard drink = 0.6 oz pur e alcohol) Sex and Gender Information Value Date Recorded Sex Assigned at Not on file Gender Identity Not on file Sexual Orientation Not on file documented as of this encounter Plan of Treatment Not on file documented as of this encounter Procedures Procedure Name Priority Date/Time Associated Diagnosis Comments IMMUNOFIXATION (DAVEY), URINE Routine 02/05/2022 1:32 PM CDT documented in this encounter Results * Immunofixation (DAVEY), Urine (02/05/2022 1:32 PM CDT) Immunofixation for Urine No monoclonal immunoglobulin detected. [facility] (ST) 02/05/2022 1:32 PM CDT 02/05/2022 1:32 PM CDT Narrative [facility] - 02/09/2022 9:41 AM CDT SPLIT 02/05/2022 FROM [id number] URINE VOLUME: 2100/24 Resulting Agency Comment Performing Organization Information: ?Site ID: [id number] ?Name: [facility] ?Address: [address] [place], [place] [address] [address] ?Director: Ross Tyler D.O., MPH Garret Kahn MD LAB BLOOD ORDERABLES [facility] documented in this encounter Visit Diagnoses Not on filedocumented in this encounter Care Teams School Psychologist Assistant Relationship Specialty Start Date End Date Ranulfo Romo DO PCP - General Family Medicine 12/30/21 documented as of this encounter
--- OUTSIDE RECORDS SUMMARY | 2024-09-12 15:29 | XMS_ITS | Encounter Summary ---
Author Organization [facility] Address [address] [place] [id number] Phone Care Team Providers Care News Director Name Role Phone DagmarRanulfo martinez Primary Care Provider [phone] Encounter Details Date Type Department Care Team (Late st Contact Info) Description 01/13/2022 9:30 AM CDT Office Visit [facility] Nephrology and Hypertension [address] [place] [address], [address] [place] [address] Garret Kahn MD [address] [facility], [address] [place] [address] Chronic kidney disease stage 4 (CMS-HCC) (Primary Dx) Social History Tobacco Use Types Packs/Day Years Used Date Smoking Tobacco: Former Smokeless Tobacco: Never Alcohol Use Standard Drinks/Week Comments Not Currently 0 (1 standard drink = 0.6 oz pur e alcohol) Sex and Gender Information Value Date Recorded Sex Assigned at Not on file Gender Identity Not on file Sexual Orientation Not on file documented as of this encounter Last Filed Vital Signs Vital Sign Reading Time Taken Comments Blood Pressure 138/88 01/13/2022 9:53 AM CDT Pulse 96 01/13/2022 9:53 AM CDT Temperature 36.1 ??C (97 ??F) 01/13/2022 9:53 AM CDT Respiratory Rate - - Oxygen Saturation - - Inhaled Oxygen Concentration - - Weight 88.5 kg (195 lb) 01/13/2022 9:53 AM CDT Height 172.7 cm (5' 8) 01/13/2022 9:53 AM CDT Body Mass Index 29.65 01/13/2022 9:53 AM CDT documented in this encounter Progress Notes * Garret Kahn MD - 01/13/2022 9:30 AM CDT Freddy Hill is a pleasant 71 y.o.male. Freddy is a very pleasant gentleman who is sent over because of an elevated creatinine. He went to see Dr. Galvan recently to follow up for his vascular disease. His creatinine was checked and it wasa little bit elevated so he was sent for kidney evaluation. .At the time of the visit the patient was feeling fine. There was no nausea, vomiting, diarrhea, fevers, chills, or other flu like illnesses. The patient has had no bloody urine, foamy urine, kidney stones, painful urination, or bladder infections. The patient is not taking any new medications or new over the counter meds. No NSAIDs reported. Patient has peripheral vascular disease. This has been going on for a few years. He had claudication back in 2018 and had a stent placed. This helped the symptoms but then in 2019 he started having claudication once again. He had another angiogram done at the time which shows the stent was closing up so another stent was placed. Later that year he had a third stent placed. Now the patient starting to have claudication again. He had an ultrasound done which showed that the the flow through the stents is lower but also he has an aneurysm. Because of this labs were checked and his GFR had dropped to 25. Dr. Lay plans on doing another angiogram but because of the low GFR is concerned about nephrotoxicity which is what led to this office visit. Patient also has carotid artery disease and has had a right carotid endarterectomy. The patient has hypertension. This has been going on for about 15 years. It has always been well-controlled in the 120s. He???s never had a stroke, heart attack or congestive heart failure he says. His blood pressure is somewhat problematic. If he doesn???t take his blood pressure it does rise to the 170s fairly quickly. Sometimes he does not take his blood pressure medication if he???s going outsuch as to a doctors office. This is because when he does take his blood pressure medicine he gets a little bit lightheaded and he???s afraid to drive. He says that he has not checked his blood pressure when he???s lightheaded. The patient has COPD. He???s on inhalers for this. He used to smoke but does not smoke any longer. The patient has psoriasis. He uses topicals for this. He also had a substantial skin rash on his back. He went to see five different dermatologists and none of them knew what it was [facility] not know what it was but prescribed dupixent for this. Since then his rash has improved. The patient has arthritis. He???s had bilateral total hip replacements. This goes about two weeks ago he had a bladder infection which was treated. He was given Augmentin for this. One week ago the patient had some trouble with urinary retention. He could barely urinate at all and so he went to his urologist. They were unable to pass a catheter so he had a scope done the same day. Eventually a catheter was placed. He is much better now but still has a catheter with a leg bag.All this happened after the last set of bloodwork. The patient has had a period of significant swelling last June. This was in his legs and thighsand also he had some shortness of breath. It???s unclear what caused this because his latest echocardiogram showed a good ejection fraction. He was given Lasix at the time and his swelling and shortness of breath improved dramatically. Since then he was told to take Lasix for two or three days if you swollen but otherwise don???t take any routine.y. He says that he hast to take Lasix under this regimen about once a month or less. the patient has cardiac arrhythmias. He???s not sure exactly what the arrhythmia was but they put apacemaker in him and he???s been fine ever cents. Past history: chronic kidney disease, hypertension, arrhythmias, COPD, skin rash, psoriasis, arthritis, urinary retention, bladder infections, edema, chronic kidney disease, peripheral vascular disease, carotid artery disease. Allergies Allergen Reactions ??? Cephalexin Vomiting Other reaction(s): Stomach upset Social History Tobacco Use ??? Smoking status: Former Smoker ??? Smokeless tobacco: Never Used Substance Use Topics ??? Alcohol use: Not Currently ??? Drug use: Never ROS Constitutional: Negative except as above Urologic: Negative except as above Pulmonary: Negative except as above Abdomen: Negative except as above Neuro: Negative except as above ENT: Negative except as above Endocrine: Negative except as above Psychiatric: Negative except as above Cardiac: Negative except as above Skin: Negative except as above Rheumatologic: Negative except as above BP 138/88 Pulse 96 Temp 97 ??F (36.1 ??C) Ht 5' 8 (1.727 m) Wt 195 lb (88.5 kg) BMI 29.65 kg/m?? BSA 2.06 m?? WDWN male in NAD Skin warm and dry, no rash Neck no nodes, no TMG but bilateral bruits Lungs Clear to ausc and percussion Cor RRR no rub or gallop Abd BS+ nontender and soft, no masses, HSM, or bruits. Ext No cyanosis, clubbing, or edema. Pulses 2+/= radial arteries, minimal in DP Head NCAT Eyes normal sclerae and conjunctivae Back no CVAT Psyche: not anxious or depressed Neuro: A+O x 3, motor 5/5, cr ns 2-12 intact, reflexes 2+/= biceps and patellar tendons, Cb normal JEOVANY Recent Labs: 03/10/21 Cr 1.9 07/21/21 Cr 1.9, gfr 35, Na 130 09/30/21 Cr 2.2, gfr 30 06/30/22 Cr 2.04, gfr 32, 07/14/21 Cr 1.71, gfr 40, 10/29/21 Cr 2.52, gfr 25, CO2 31, Hb 11.5 Imagin11/12/21 CT with contrast Multiple lung nodules and fibrosis. 11/24/21 Echo EF 66%, DD1 Impression: Freddy has an elevated creatinine. There are several things going on here. He has chronic kidney disease. Most likely this is due to hypertension and vascular disease. He has had a recent decline in his kidney function. This may be due to urinary retention. We will repeat the creatinine to see if it???s better now that he has a catheter in. He gets dizzy after taking his meds. His BP may be too low after taking his meds. He will take his bp before and 2h after his pills and chart it. He will let me know how it is in 2 weeks. The patient does have psoriasis and that mysterious skin rash on his back which has responded to dupixent. This is a form of an auto immune disease and I discussed with the patient that if you have one auto immune disease some time you get another. Some auto immune diseases can affect the kidneys. So we will check for these as well. There are other things that cause kidney disease as well, including glomerulonephritis, interstitial nephritis, obstruction, infiltration, stone disease, or cystic disease. These are unlikely becausethe patient has no sign or symptoms of any of these. To evaluate this I am going to get a renal panel, urinalysis, urine protein to creatinine ratio, TOMAS, ESR, complements, serum and urine immunofixation, kappa lambda ratio, and a renal ultrasound. We discussed ways to preserve renal function. We discussed the potential benefits of ASHLIE inhibitors and ARBs. The systolic blood pressure should be less than 140. The LDL cholesterol should be less than 100. We will check a PTH and vitamin D level to be sure these are in line. We discussed that the patient should stay off large amounts of protein in the diet. Try to stick toabout 7 ounces of chicken, fish, beef or pork per day. He does this by taste. The patient should avoid nonsteroidal antiinflammatory agents. The patient should stay well hydrated. The patients BMI is okay. The patient will work on the diet and get the testing done. Followup in a few weeks for further evaluation. Pt was told that I will write a note or call them with results of tests done after the visit. If they do not get any notification within a week or two after the testing is done, then they should callfor results. Assessment/Plan Diagnoses and all orders for this visit: Chronic kidney disease stage 4 (CMS-HCC) - Ultrasound renal; Future documented in this encounter Plan of Treatment Scheduled Orders Name Type Priority Associated Diagnoses Orde r Schedule Ultrasound renal Imaging Routine Chronic kidney disease stage 4 (CMS-HCC) 1 Occurrences starting 01/13/2022 until 07/16/2022 documented as of this encounter Visit Diagnoses Diagnosis Chronic kidney disease stage 4 (CMS-HCC)- Primary documented in this encounter Care Teams News Director Relationship Specialty Start Date End Date Ranulfo Romo DO PCP - General Family Medicine 12/30/21 documented as of this encounter
--- OUTSIDE RECORDS SUMMARY | 2024-09-12 15:29 | XMS_ITS | Clinical Summary ---
Author Organization [facility] Address [address] [place] [address]. [place], [place] [address] [place] [id number] Care Team Providers Care Pigment Presser Name Role Phone Dagmarjuan Ranulfo FRANCISCO Primary Care Provider [phone] Josiah Lay MD Unavailable Daniela Hilario [facility]- Unavailable + [phone] Allergies No known active allergies Medications Multiple Vitamin (MULTIVITAMIN ADULT OR) Take 1 tablet by mouth daily. Active albuterol sulfate HFA 108 (90 Base) MCG/ACT inhaler Inhale 2 puffs into the lungs every 6 (six) hours as needed for Wheezing. Active carvedilol 25 MG tablet Take 25 mg by mouth daily. In am 50 mg at hs Active carvedilol 25 MG tablet Take 50 mg by mouth nightly. Active cetirizine 10 MG chewable tablet Chew 10 mg by mouth nightly. Active doxepin 25 MG capsule Take 25 mg by mouth nightly at bedtime. Active Dupilumab (DUPIXENT) 300 MG/2ML Solution Pen-injector Inject 1 Application into the skin every 14 (fourteen) days. To prevent rash Active furosemide 40 MG tablet Take 40 mg by mouth daily. Active gabapentin 300 MG capsule Take 300 mg by mouth nightly. Active potassium chloride CR 10 MEQ Tab CR tablet Take 1 tablet by mouth daily. When he takes lasix Active traMADol 50 MG tablet Take 50 mg by mouth every 6 (six) hours as needed for Pain. Active cilostazol 100 MG tablet Take 100 mg by mouth 2 (two) times daily. 2 Active WIXELA INHUB 500-50 MCG/DOSE inhaler Inhale 1 puff into the lungs 2 (two) times daily. 2 Active pantoprazole EC 40 MG tablet Take 40 mg by mouth daily. 2 Active tamsulosin 0.4 MG Cap Take 0.8 mg by mouth daily. 1 Active tiotropium (SPIRIVA RESPIMAT) 2.5 MCG/ACT inhaler (SPIRIVA RESPIMAT) Inhale 2 puffs into the lungs daily. 1 Active triamcinolone 0.1 % ointment APPLY DAILY TO RASH ON ELBOWS 1 Active acetaminophen 500 MG tablet Take 500 mg by mouth every 6 (six) hours as needed for Pain. Active OXYGEN 2 L/min by Nasal route. continuous at night, carries portable during day if exerting self 1 Active rivaroxaban (XARELTO) 2.5 MG tablet Take 1 tablet by mouth 2 (two) times daily. 2 Active clopidogrel (PLAVIX) 75 MG tablet Take 75 mg by mouth daily. Active atorvastatin (LIPITOR) 80 MG tablet Take 80 mg by mouth nightly at bedtime. Active cloNIDine (CATAPRES) 0.1 MG tablet Take 0.1 mg by mouth nightly. Active amLODIPine (NORVASC) 10 MG tablet Take 10 mg by mouth nightly. Active Active Problems No known active problems Immunizations Name Administration Dates Next Due PFIZER COVID-19 (ORIGINAL FO RMULATION, PURPLE CAP) mRNA, LNP-S, PF, 30 MCG/0.3 ML DOSE 08/12/2021,11/26/2020,10/22/2020 Family History Medical History Relation Comments No Known Problems Brother Hypertension Father Stroke Father Diabetes Mother Hypertension Mother Hypertension Sister 1 Heart Disease Sister 2 valve replacemen t Hypertension Sister 2 Relation Status Comments Brother Alive Daughter 1 Alive Daughter 2 Alive Daughter 3 Alive Father Mother Sister 1 Alive Sister 2 Alive Social History Tobacco Use Types Packs/Day Years Used Date Smoking Tobacco: Former Cigarettes 2 40 1 0 - 2009 Smokeless Tobacco: Never Alcohol Use Standard Drinks/Week Comments Not Currently 0 (1 standard drink = 0.6 oz pur e alcohol) Sex and Gender Information Value Date Recorded Sex Assigned at Not on file Legal Sex Male 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 Gender Identity Male 10/27/2021 1:50 PM SORTER PACKER Sexual Orientation Straight 10/27/2021 1: 50 PM SORTER PACKER Last Filed Vital Signs Vital Sign Reading Time Taken Comments Blood Pressure 140/79 05/10/2022 5:15 PM CDT Pulse 76 05/10/2022 5:15 PM CDT Temperature 36.4 ??C (97.6 ??F) 05/10/2022 5:15 PM CD T Respiratory Rate 16 05/10/2022 5:15 PM CDT Oxygen Saturation 95% 05/10/2022 5:15 PM CDT Inhaled Oxygen Concentration - - Weight 87.5 kg (192 lb 14.4 oz) 022 10:33 AM CDT Height 172.7 cm (5' 8) 05/10/2022 10:3 3 AM CDT Body Mass Index 29.33 05/10/2022 10:33 AM CDT Plan of Treatment Health Maintenance Due Date Last Done Comments Colorectal Cancer Screening Colonoscopy (10 Years) 1950 Hepatitis C 1969 DTaP, Tdap and Td Vaccines (1 - Tdap) 1970 Zoster Vaccines (1 of 2) 2001 Pneumococcal Vaccine: 65+ Years (1 of 1 - PCV) 2016 04/22/2012 COVID-19 Vaccine ( - season) 2024 02/26/2022, 08/12/2021, 11/26/2020, Additional history exists Influenza Adult (#1) 2024 04/24/2021 RSV Immunization or 60+ Years (1 - 1-dose 75+ series) 2026 Meningococcal Vaccine Aged Out No steve marce eligible based on patient's age to complete this topic RSV Immunizations Under 20 Months Aged Out No longer eligible based on patient's age to complete this topic Insurance [id number] Advance Directives Documents on File Type Date Recorded Patient Infectious Disease Technician Expl anation Power of Photo Machine Operator 11/10/2021 POA for He [facility] Care Care Teams Pigment Presser Relationship Specialty Start Date End Date Ranulfo Romo DO [address] [facility] [address] [place] [address] PCP - General FAMILY PRACTICE 03/30/22 Josiah Lay MD [address] [place] [address] CARDIOVASCULAR DISEASE 03/30/22 Daniela Hilario, [facility] [address] [facility] [address] [place] [id number] Nurse Practitioner Family 03/30/22
--- OUTSIDE RECORDS SUMMARY | 2024-09-12 15:29 | XMS_ITS | Encounter Summary ---
Author Organization [facility] Sylvie utions Address [address] [place] [phone] Phone Care Team Providers Care Ventilation Mechanic Name Role Phone Dagmarjaun Ranulfo Primary Care Provider [phone] Encounter Details Date Type Department Care Team (Late st Contact Info) Description 02/03/2022 Orders Only [facility] Nephrology and Hypertension [address] [facility], [address] [place] [id number] Garret Kahn MD [address] [facility], [address] [place] [address] Social History Tobacco Use Types Packs/Day Years [...] Procedure Name Priority Date/Time Associated Diagnosis Comments URINALYSIS, COMPLETE, W/ REFLEX TO CULTURE Routine 02/03/2022 12:31 PM CDT KAPPA/LAMBDA FREE LIGHT CHAINS, QN, SERUM Routine 02/03/2022 12:31 PM CDT TOTAL PROTEIN W/ CREATININE, URINE, RANDOM Routine 02/03/2022 12:31 PM CDT CBC (INCLUDES DIFFERENTIAL/PLATELETS ) Routine 02/03/2022 12:31 PM CDT RENAL FUNCTION PANEL (RFP) Routine 02/03/2022 12:31 PM CDT C3 C4 COMPLEMENT CH50 Routine 02/03/2022 12:31 PM CDT ERYTHROCYTE SEDIMENTATION RATE (ESR) Routine 02/03/2022 12:31 PM CDT IMMUNOFIXATION, SERUM Routine 02/03/2022 12:31 PM CDT ANTINUCLEAR ANTIBODIES (TOMAS), IFA W/ REFL TITER AND PATTERN Routine 02/03/2022 12:31 PM CDT PTH INTACT AND CALCIUM, SERUM Routine 02/03/2022 12:31 PM CDT documented in this encounter Results * (ABNORMAL) Antinuclear Antibodies (TOMAS), IFA w/ Refl Titer and Pattern (02/03/2022 12:31 PM CDT) TOMAS, Serum POSITIVE( A) NEGATIVE [facility] ([facility]) Comment: TOMAS IFA is a first line screen for detecting the presence of up to approximately 150 autoantibodies in various autoimmune diseases. A positive TOMAS IFA result is suggestive of autoimmune disease and reflexes to titer and pattern. Further laboratory testing may be considered if clinically indicated. For additional information, please refer to http://education.[employer].NoveltyLab/faq/ILV958 (This link is being provided for informational/ educational purposes only.) ?? TOMAS, Serum 1:40(H) titer [facility]) Comment: A low level TOMAS titer may be present in pre-clinical autoimmune diseases and normal individuals. ?Reference Range ?<1:40 ?Negative ?1:40-1:80 ?Low Antibody Level ?>1:80 ?Elevated Antibody Level TOMAS Pattern, Serum Cytoplasm ic(A) [facility] ([facility]) Comment: The presence of cytoplasmic fluorescence was noted on the HEp-2 slide. Other reactivities (e.g., anti- mitochondrial antibodies or anti-smooth muscle antibodies) may be responsible for this fluorescence. The clinical significance of this finding is uncertain. Clinical correlation is recommended. AC-15 to AC-23: Cytoplasmic International Consensus on TOMAS Patterns (https://doi.org/10.1515/rrbe-5612-4610) 02/03/2022 12:3 1 PM CDT 02/03/2022 12:35 PM CDT Narrative [facility] ([facility]) - 02/05/2022 4:53 PM CDT FASTING:NO COLLECTION KIT GIVEN TO PATIENT. PATIENT ADVISED TO RETURN. FASTING: NO Resulting Agency Comment Performing Organization Information: ?Site ID: [place] ?Name: [employer] ?Address: [address] [place] [address] [place] [address] ?Director: Ross Tyler D.O., MPH Garret Kahn MD LAB BLOOD ORDERABLES [facility] ([facility]) * Immunofixation, Serum (02/03/2022 12:31 PM CDT) Immunofixation for Serum/Plasma Normal pattern. No monoclonal proteins detected. [facility] ([facility]) 02/03/2022 12:3 1 PM CDT 02/03/2022 12:35 PM CDT Narrative [facility] ([facility]) - 02/05/2022 4:53 PM CDT FASTING:NO COLLECTION KIT GIVEN TO PATIENT. PATIENT ADVISED TO RETURN. FASTING: NO Resulting Agency Comment Performing Organization Information: ?Site ID: [place] ?Name: [facility] ?Address: [facility] [place] [facility] [place] [address] ?Director: Ross Tyler D.O. MPH Garret Kahn MD LAB URINE ORDERABLES Performing Organization Address City/[facility]/[place] Co de Phone Number [facility]) * (ABNORMAL) [place] and Lambda Free Light Chains, Qn, Serum (02/03/2022 12:31 PM CDT) [place] light chains, free, Serum 69.1(H) 3.3 - 19.4 mg/L [facility] ([facility]) Lambda light chains, free, Serum/Plasma 47.4(H) 5.7 - 26.3 mg/L [facility] ([facility]) [place] light chains, free/Lambda light chains, free, Serum 1.46 0.26 - 1.65 [facility] ([facility]) Comment: Free kappa/lambda ratio in serum of normal individuals is 0.26-1.65. Excess production of free kappa or lambda chains can alter this ratio. Monoclonal free light chains are found in serum of patients with multiple myeloma, Waldenstrom's macroglobulinemia, mu-heavy chain disease, primary amyloidosis, light chain deposition disease, monoclonal gammopathy of undetermined significance, and lymphoproliferative disorders. Measurement of free light chain concentration in serum is useful for diagnosis, prognosis, monitoring disease activity and following response to therapy of these disorders. 02/03/2022 12:3 1 PM CDT 02/03/2022 12:35 PM CDT Narrative [facility] ([facility]) - 02/05/2022 4:53 PM CDT FASTING:NO COLLECTION KIT GIVEN TO PATIENT. PATIENT ADVISED TO RETURN. FASTING: NO Resulting Agency Comment Performing Organization Information: ?Site ID: [place] ?Name: [id number] ?Address: [address] [place] [address] ?Director: Ross Tyler D.O. MPH Garret Kahn MD LAB BLOOD ORDERABLES Performing Organization Address City/State/[place] Co de Phone Number [facility] ([facility]) * C3 C4 Complement CH50 (02/03/2022 12:31 PM CDT) Complement C3, Serum/Plasma 119 82 - 185 mg/dL [facility] ([facility]) Complement C4, Serum/Plasma 22 15 - 53 mg/dL [facility] ([facility]) Complement total hemolytic CH50, Serum/Plasma 56 31 - 60 U/mL [facility] ([facility]) 02/03/2022 12:3 1 PM CDT 02/03/2022 12:35 PM CDT Narrative [facility]. [facility] ([facility]) - 02/05/2022 4:53 PM CDT FASTING:NO COLLECTION KIT GIVEN TO PATIENT. PATIENT ADVISED TO RETURN. FASTING: NO Resulting Agency Comment Performing Organization Information: ?Site ID: [place] ?Name: [facility] ?Address: [address] [place] [address] [place] [address] ?Director: Ross Tyler D.O., MPH Garret Kahn MD LAB BLOOD ORDERABLES Performing Organization Address [facility]/[place] Co de Phone Number [facility] ([facility]) * (ABNORMAL) Total Protein w/ Creatinine, Urine, Random (02/03/2022 12:31 PM CDT) Pathologist [facility] Creatinine, Urine 150 20 - 320 mg/dL [facility]. [facility] ([facility]) Protein/Creati nine, Urine 153(H) 22 - 128 mg/g creat [facility] ([facility]) Protein/Creati nine, Urine 0.153(H) 0.022 - 0.128 mg/mg creat [facility] ([facility]) Protein, Urine 23 5 - 25 mg/dL [facility] ([facility]) 02/03/2022 12:3 1 PM CDT 02/03/2022 12:35 PM CDT Narrative [facility] ([facility]) - 02/05/2022 4:53 PM CDT FASTING:NO COLLECTION KIT GIVEN TO PATIENT. PATIENT ADVISED TO RETURN. FASTING: NO Resulting Agency Comment Performing Organization Information: ?Site ID: [place] ?Name: [facility] ?Address: [facility] [place] [facility] [place] [address] ?Director: Ross Tyler D.O., MPH Garret Kahn MD LAB URINE ORDERABLES [facility] ([facility]) * (ABNORMAL) Renal Function Panel (RFP) (02/03/2022 12:31 PM CDT) Glucose, Serum/Plasma 91 65 - 139 mg/dL [facility] ([facility]) Comment: ? Non-fasting reference interval Urea nitrogen, Serum/Plasma (BUN) 32(H) 7 - 25 mg/dL [facility] ([facility]) Creatinine, Serum/Plasma 2.48(H) 0.70 - 1.18 mg/dL [facility] ([facility]) Comment: For patients >49 years of age, the reference limit for Creatinine is approximately 13% higher for people identified as -Bahamian. eGFR, non 25(L) > OR = 60 mL/min/1. 73m2 [facility] ([facility]) eGFR, 29(L) > OR = 60 mL/min/1. 73m2 [facility] ([facility]) Urea nitrogen/Creatinin e, Serum/Plasma 13 6 - 22 (calc) [facility] ([facility]) Sodium, Serum/Plasma 140 135 - 146 mmol/L [facility] ([facility]) Potassium, Serum/Plasma 4.6 3.5 - 5.3 mmol/L [facility]. [facility] ([facility]) Chloride, Serum/Plasma 106 98 - 110 mmol/L [facility] ([facility]) Carbon dioxide CO2), total, Serum/Plasma 28 20 - 32 mmol/L [facility] ([facility]) Calcium, Serum/Plasma 8.8 8.6 - 10.3 mg/dL [facility] ([facility]) Phosphate, Serum/Plasma 4.2 2.1 - 4.3 mg/dL [facility] ([facility]) Albumin, Serum/Plasma 3.7 3.6 - 5.1 g/dL [facility] ([facility]) 02/03/2022 12:3 1 PM CDT 02/03/2022 12:35 PM CDT Narrative [facility] ([facility]) - 02/05/2022 4:53 PM CDT FASTING:NO COLLECTION KIT GIVEN TO PATIENT. PATIENT ADVISED TO RETURN. FASTING: NO Resulting Agency Comment Performing Organization Information: ?Site ID: [place] ?Name: [facility] ?Address: [address] [place] [address] [place] [address] ?Director: Ross Tyler D.O., MPH Garret Kahn MD LAB BLOOD ORDERABLES [facility] ([facility]) * Erythrocyte Sedimentation Rate (ESR) (02/03/2022 12:31 PM CDT) Erythrocyte sedimentation rate (ESR) 14 < OR = 20 mm/h [facility] ([facility]) 02/03/2022 12:3 1 PM CDT 02/03/2022 12:35 PM CDT Narrative [facility] ([facility]) - 02/05/2022 4:53 PM CDT FASTING:NO COLLECTION KIT GIVEN TO PATIENT. PATIENT ADVISED TO RETURN. FASTING: NO Resulting Agency Comment Performing Organization Information: ?Site ID: [place] ?Name: [facility] ?Address: [address] [place] [address] ?Director: Ross Tyler D.O., MPH Garret Kahn MD LAB BLOOD ORDERABLES [facility] ([facility]) * (ABNORMAL) PTH Intact and Calcium, Serum (02/03/2022 12:31 PM CDT) PTH, Intact, Serum/Plasma 88(H) 16 - 77 pg/mL [facility] ([facility]) Comment: Interpretive Guide ?Intact PTH ? Calcium ? ------- Normal Parathyroid ?Normal ? Normal Hypoparathyroidism ?Low or Low Normal ?Low Hyperparathyroidism ?? Primary ?Normal or High ? High ?? Secondary ?High ? Normal or Low ?? Tertiary ? High ? High Non-Parathyroid ?? Hypercalcemia ?Low or Low Normal ?High Calcium, Serum/Plasma 8.8 8.6 - 10.3 mg/dL [facility] ([facility]) 02/03/2022 12:3 1 PM CDT 02/03/2022 12:35 PM CDT Narrative [facility] ([facility]) - 02/05/2022 4:53 PM CDT FASTING:NO COLLECTION KIT GIVEN TO PATIENT. PATIENT ADVISED TO RETURN. FASTING: NO Resulting Agency Comment Performing Organization Information: ?Site ID: [place] ?Name: [facility] ?Address: [address], [place] [address] ?Director: Ross Tyler D.O., MPH Garret Kahn MD LAB BLOOD ORDERABLES [facility] ([facility]) * (ABNORMAL) Urinalysis, Complete, w/ Reflex to Culture (02/03/2022 12:31 PM CDT) Color of Urine YELLOW YELLOW [facility] ([facility]) Appearance of Urine CLEAR CLEAR [facility] ([facility]) Specific gravity of Urine 1.020 1.001 - 1.035 [facility] ([facility]) pH of Urine 6.0 5.0 - 8.[address] [facility] ([facility]) Glucose, Urine NEGATIVE NEGATIVE [facility] ([facility]) Bilirubin, total, Urine NEGATIVE NEGATIVE [facility] ([facility]) Ketones, Urine NEGATIVE NEGATIVE [facility] ([facility]) Hemoglobin, Urine NEGATIVE NEGATIVE [facility] ([facility]) Protein, Urine TRACE(A) NEGATIVE [facility] ([facility]) Nitrite, Urine NEGATIVE NEGATIVE [facility] ([facility]) Leukocyte esterase, Urine NEGATIVE NEGATIVE [facility]) Leukocytes, Urine sediment NONE SEEN < OR = 5 /HPF [facility] ([facility]) Erythrocytes, Urine sediment NONE SEEN < OR = 2 /HPF [facility] ([facility]) Epithelial cells, squamous, Urine sediment NONE SEEN < OR = 5 /HPF [facility] ([facility]) Bacteria, Urine sediment NONE SEEN NONE SEEN /HPF [facility] ([facility]) Hyaline casts, Urine sediment NONE SEEN NONE SEEN /LPF [facility] ([facility]) Bacteria identified, Urine [facility] ([facility]) Comment:NO CULTURE INDICATED 02/03/2022 12:3 1 PM CDT 02/03/2022 12:35 PM CDT Narrative [email or web address] - [facility] ([facility]) - 02/05/2022 4:53 PM CDT FASTING:NO COLLECTION KIT GIVEN TO PATIENT. PATIENT ADVISED TO RETURN. FASTING: NO Resulting Agency Comment Performing Organization Information: ?Site ID: [place] ?Name: [id number] ?Address: [facility] [place] [facility] [place] [address] ?Director: Ross Tyler D.O., MPH Garret Kahn MD LAB BLOOD ORDERABLES [facility] ([facility] * (ABNORMAL) CBC (includes Differential/Platelets) (02/03/2022 12:31 PM CDT) Leukocytes, Blood 7.6 3.8 - 10.8 Thousand/u L [facility] ([facility]) Erythrocytes (RBC) 4.07(L) 4.20 - 5.80 Million/uL [facility] ([facility]) Hemoglobin (HGB) 10.7(L) 13.2 - 17.1 g/dL [facility] ([facility]) Hematocrit (HCT) 35.1(L) 38.5 - 50.0 % [facility] ([facility]) MCV 86.2 80.0 - 100.0 [address]L [facility] ([facility]) MCH 26.3(L) 27.0 - 33.0 [address] [facility] ([facility]) MCHC 30.5(L) 32.0 - 36.0 g/dL [facility] ([facility]) Erythrocyte Distribution Width (RDW) 14.6 11.0 - 15.0 % [facility] ([facility]) Platelets, Blood 88(L) 140 - 400 Thousand/u L [facility] ([facility]) Platelet mean volume, Blood 9.7 7.5 - 12.[address] [facility]) Neutrophils, Blood 5,882 1,500 - 7,800 cells/uL [facility] ([facility]) Lymphocytes, Blood 859 850 - 3,900 cells/uL [facility]) Monocytes, Blood 547 200 - 950 cells/uL [facility]) Eosinophils, Blood 289 15 - 500 cells/uL [facility] ([facility]) Basophils, Blood 23 0 - 200 cells/uL [facility] ([facility]) Neutrophils/100 leukocytes, Blood 77.4 % [facility]) Lymphocytes/100 leukocytes, Blood 11.3 % [facility]) Monocytes/100 leukocytes, Blood 7.2 % [facility] ([facility]) Eosinophils/100 leukocytes, Blood 3.8 % [facility] ([facility]) Basophils/100 leukocytes, Blood 0.3 % [facility]) 02/03/2022 12:3 1 PM CDT 02/03/2022 12:35 PM CDT Narrative [facility] ([facility]) - 02/05/2022 4:53 PM CDT FASTING:NO COLLECTION KIT GIVEN TO PATIENT. PATIENT ADVISED TO RETURN. FASTING: NO Resulting Agency Comment Performing Organization Information: ?Site ID: [place] ?Name: [facility] ?Address: [address] [place] [address] ?Director: Ross Tyler D.O., MPH Garret Kahn MD LAB BLOOD ORDERABLES [facility]) documented in this encounter Visit Diagnoses Not on filedocumented in this encounter Care Teams Ventilation Mechanic Relationship Specialty Start Date End Date Ranulfo Romo DO PCP - General Family Medicine 12/30/21 documented as of this encounter
--- OUTSIDE RECORDS SUMMARY | 2024-09-12 15:29 | XMS_ITS | Clinical Summary ---
Author Organization [facility]ya Physician Sylvie mcmullen Address [address] [place] [address] Phone Care Team Providers Care Hearing Health Technician Name Role Phone Ranulfo Romo Primary Care Provider [phone] Allergies Active Allergy Reactions Criticality Noted Date Comments Cephalexin Vomiting Low 07/13/2021 Other reaction(s): Stomach upset Medications Medication Sig Dispensed Refills Start Date End Date Status acetaminophen (TYLENOL) 500 MG tablet Take 500 mg by mouth every 6 hours as needed Active albuterol HFA (PROVENTIL HFA) 108 (90 Base) MCG/ACT inhaler INHALE 2 PUFFS EVERY 4 HOURS BY INHALATION ROUTE NEEDED FOR 30 DAYS. 04/06/2021 Active carvedilol (COREG) 25 MG tablet TAKE 1 & 1/2 TABLETS BY MOUTH TWICE A DAY 12/26/2021 Active cetirizine (ZyrTEC) 10 MG chewable tablet Chew 10 mg daily Active cilostazol (PLETAL) 100 MG tablet Take 100 mg by mouth 2 (two) times a day 11/19/2021 Active clopidogrel (PLAVIX) 75 MG tablet 01/08/2022 Active doxepin (SINEquan) 25 MG capsule Take 25 mg by mouth every night 12/26/2021 Active Dupixent 300 MG/2ML solution prefilled syringe 01/07/2022 Active Wixela Inhub 500-50 MCG/ACT aerosol powder INHALE 1 PUFF TWICE A DAY BY INHALATION ROUTE DIRECTED FOR 30 DAYS. 01/04/2022 Active furosemide (LASIX) 40 MG tablet Take 40 mg by mouth 1 (one) time each day in the morning 01/05/2022 Active gabapentin (NEURONTIN) 300 MG capsule 01/12/2022 Active Melatonin 5 MG capsule Take by mouth Active Multiple Vitamin (multivitamin) capsule Take 1 capsule by mouth daily Active Polyethylene Glycol 3350 (PEG 3350) 17 g pack TAKE 1 PACKET (17 G TOTAL) BY MOUTH DAILY FOR 7 DAYS. DISSOLVE POWDER IN 240 ML WATER 11/09/2021 Active potassium chloride (MICRO-K) 10 MEQ CR capsule Take by mouth 1 (one) time each day 01/05/2022 Active tamsulosin (FLOMAX) 0.4 MG 24 hr capsule Take 0.8 mg by mouth 1 (one) time each day 12/23/2021 Active Xarelto 2.5 MG tablet Take 1 tablet by mouth 2 (two) times a day 12/30/2021 Active Spiriva Respimat 2.5 MCG/ACT aerosol solution 01/09/2022 Active traMADol (ULTRAM) 50 MG tablet Take 50 mg by mouth every 6 (six) hours if needed 12/31/2021 Active triamcinolone (KENALOG) 0.1 % ointment APPLY DAILY TO RASH ON ELBOWS 08/20/2021 Active amLODIPine (NORVASC) 10 MG tablet Take 10 mg by mouth daily Active atorvastatin (LIPITOR) 80 MG tablet Take 80 mg by mouth 1 (one) time each day 04/15/2022 Active cloNIDine (CATAPRES) 0.1 MG tablet Take 0.1 mg by mouth daily Active pantoprazole (PROTONIX) 40 MG EC tablet Take 40 mg by mouth 1 (one) time each day 02/13/2022 Active Active Problems Problem Noted Date Diagnosed Date Hypertension 01/07/2022 Overview (01/07/2022): Last Assessment & Plan: Has been normotensive while inpatient - increase BB - Lisinopril and HCTZ on hold Acute injury of kidney 06/16/2021 Overview (01/07/2022): Last Assessment & Plan: -per renal: likely multifactorial. Patient still making adequate urine. -renally dose medications -continue to monitor renal function -trending down -plan to replace kumari and send home with it -F/U with urology Chronic kidney disease stage 4 06/11/2021 Overview (01/07/2022): Last Assessment & Plan: At time of admission creat baseline 2.5 - renal following - Avoid other nephrotoxic medications - Monitor labs Immunizations Name Administration Dates Next Due Influenza, Unspecified 04/24/2021 Pfizer Sars-cov-2 Vaccination 08/12/2021, 021 Pneumococcal Conjugate 04/22/2012 Social History Tobacco Use Types Packs/Day Years Used Date Smoking Tobacco: Former Smokeless Tobacco: Never Alcohol Use Standard Drinks/Week Comments Not Currently 0 (1 standard drink = 0.6 oz pur e alcohol) Sex and Gender Information Value Date Recorded Sex Assigned at Not on file Gender Identity Not on file Sexual Orientation Not on file Last Filed Vital Signs Vital Sign Reading Time Taken Comments Blood Pressure 118/68 05/13/2022 11:45 AM CDT Pulse 72 05/13/2022 11:45 AM CDT Temperature 35.7 ??C (96.3 ??F) 05/13/2022 11:45 AM C DT Respiratory Rate - - Oxygen Saturation - - Inhaled Oxygen Concentration - - Weight 87.5 kg (193 lb) 05/13/2022 11:45 AM CDT Height 172.7 cm (5' 8) 05/13/2022 11:45 AM CDT Body Mass Index 29.35 05/13/2022 11:45 AM CDT Plan of Treatment Health Maintenance Due Date Last Done Comments Pneumococcal PPSV23/PCV13 65 + Years / High and Highest Risk (1 of 4 - PCV) 1956 COVID-19 Vaccine (4 - 2022- season) 2024 08/12/2021, 11/26/2020, 10/22/2020 Influenza Vaccine (#1) 2024 04/24/2021 Care Teams Hearing Health Technician Relationship Specialty Start Date End Date Ranulfo Romo DO PCP - General Family Medicine 12/30/21
--- OUTSIDE RECORDS SUMMARY | 2024-09-12 15:29 | XMS_ITS | Encounter Summary ---
Author Organization [facility] Address [address] [place] [address] Phone Care Team Providers Care Paint Mixer Hand Name Role Phone Ranulfo Romo Primary Care Provider [phone] Encounter Details Date Type Department Care Team (Late st Contact Info) Description 05/05/2022 Orders Only [facility] Nephrology and Hypertension [address], [address] [place] [address] Garret Kahn MD [address] [facility], [address] [place] [address] Social History Tobacco Use Types Packs/Day Years [...] Procedure Name Priority Date/Time Associated Diagnosis Comments TOTAL PROTEIN W/ CREATININE, URINE, RANDOM Routine 05/05/2022 12:02 PM CDT RENAL FUNCTION PANEL (RFP) Routine 05/05/2022 12:02 PM CDT documented in this encounter Results * Total Protein w/ Creatinine, Urine, Random (05/05/2022 12:02 PM CDT) Creatinine, Urine 114 20 - 320 mg/dL [facility] ([facility]) Protein/Creatin ine, Urine 132 25 - 148 mg/g creat [facility] ([facility]) Protein/Creatin ine, Urine 0.132 0.025 - 0.148 mg/mg creat [facility] ([facility]) Protein, Urine 15 5 - 25 mg/dL [facility] ([facility]) 05/05/2022 12:0 2 PM CDT 05/05/2022 12:09 PM CDT Narrative Resulting Agency Comment Performing Organization Information: ?Site ID: MT ?Name: [facility] ?Address: [facility] [place] [address] [address] ?Director: Ross Tyler D.O., MPH Garret Kahn MD LAB URINE ORDERABLES [facility] ([facility]) * (ABNORMAL) Renal Function Panel (RFP) (05/05/2022 12:02 PM CDT) Glucose, Serum/Plasma 110(H) 65 - 99 mg/dL [facility] ([facility]) Comment: ? Fasting reference interval For someone without known diabetes, a glucose value between 100 and 125 mg/dL is consistent with prediabetes and should be confirmed with a follow-up test. Urea nitrogen, Serum/Plasma (BUN) 37(H) 7 - 25 mg/dL [facility] ([facility]) Creatinine, Serum/Plasma 2.35(H) 0.70 - 1.28 mg/dL [facility] ([facility]) Estimated Glomerular Filtration Rate (eGFR) 29(L) > OR = 60 mL/min/1.7 3m2 [facility] ([facility]) Comment: The eGFR is based on the CKD-EPI 2021 equation. To calculate the new eGFR from a previous Creatinine or Cystatin C result, go to https://www.kidney.org/professionals/ kdoqi/gfr%5Fcalculator Urea nitrogen/Creati nine, Serum/Plasma 16 6 - 22 (calc) [facility] ([facility]) Sodium, Serum/Plasma 140 135 - 146 mmol/L [facility] ([facility]) Potassium, Serum/Plasma 4.0 3.5 - 5.3 mmol/L [facility] ([facility]) Chloride, Serum/Plasma 101 98 - 110 mmol/L [facility] ([facility]) Carbon dioxide CO2), total, Serum/Plasma 29 20 - 32 mmol/L [facility] ([facility]) Calcium, Serum/Plasma 8.8 8.6 - 10.3 mg/dL [facility] ([facility]) Phosphate, Serum/Plasma 4.0 2.1 - 4.3 mg/dL [facility] ([facility]) Albumin, Serum/Plasma 3.9 3.6 - 5.1 g/dL [facility] ([facility]) 05/05/2022 12:0 2 PM CDT 05/05/2022 12:09 PM CDT Narrative Resulting Agency Comment Performing Organization Information: ?Site ID: MT ?Name: [facility] ?Address: [facility] [place] [address] ?Director: Ross Tyler D.O., MPH Garret Kahn MD LAB BLOOD ORDERABLES [facility] ([facility]) documented in this encounter Visit Diagnoses Not on filedocumented in this encounter Care Teams Paint Mixer Hand Relationship Specialty Start Date End Date Ranulfo Romo DO PCP - General Family Medicine 12/30/21 documented as of this encounter
--- OUTSIDE RECORDS SUMMARY | 2024-09-12 15:29 | XMS_ITS | Encounter Summary ---
Author Organization [facility] Address [address] [place] [address] Phone Care Team Providers Care Bilingual Manager Name Role Phone DagmarjuanRanulfo DO Primary Care Provider [phone] Encounter Details Date Type Department Care Team (Late st Contact Info) Description 07/29/[address] [facility] Nephrology and Hypertension [address] [facility], [address] [facility] [place] [address] Garret Kahn MD [address] [facility], [address] [place] [address] Social History Tobacco Use Types Packs/Day Years Used Date Smoking Tobacco: Former Smokeless Tobacco: Never Alcohol Use Standard Drinks/Week Comments Not Currently 0 (1 standard drink = 0.6 oz pur e alcohol) Sex and Gender Information Value Date Recorded Sex Assigned at Not on file Gender Identity Not on file Sexual Orientation Not on file documented as of this encounter Plan of Treatment Scheduled Orders Name Type Priority Associated Diagnoses Orde r Schedule Vitamin D, 25-Hydroxy, Serum Lab Routine Chronic kidney disease stage 4 (CMS-HCC) Secondary hyperparathyroidism (CMS-HCC) 1 Occurrences starting 07/29/2022 until 07/29/2023 documented as of this encounter Procedures Procedure Name Priority Date/Time Associated Diagnosis Comments TOTAL PROTEIN W/ CREATININE, URINE, RANDOM Routine 08/11/2022 9:43 AM SHAMPOOER Chronic kidney disease stage 4 (CMS-HCC) Secondary hyperparathyroidism (CMS-HCC) [facility]? ? 25-HYDROXY VITAMIN D (D2, D3) Routine 08/11/2022 9:43 AM SHAMPOOER CBC (INCLUDES DIFFERENTIAL/PLAT ELETS) Routine 08/11/2022 9:43 AM SHAMPOOER Chronic kidney disease stage 4 (CMS-HCC) Secondary hyperparathyroidism (CMS-HCC) RENAL FUNCTION PANEL (RFP) Routine 08/11/2022 9:43 AM SHAMPOOER Chronic kidney disease stage 4 (CMS-HCC) Secondary hyperparathyroidism (CMS-HCC) PTH INTACT W/O CALCIUM, SERUM Routine 08/11/2022 9:43 AM SHAMPOOER Chronic kidney disease stage 4 (CMS-HCC) Secondary hyperparathyroidism (CMS-HCC) documented in this encounter Results * [facility]??? 25-Hydroxyvitamin D (D2, D3) (08/11/2022 9:43 AM SHAMPOOER) 25-Hydroxyvitamin D2+25-Hydroxyvitamin D3, Serum/Plasma 47 30 - 100 ng/mL [facility] Comment: (Note) Vitamin D, 25-Hydroxy reports concentrations of two ??common forms, 25-OHD2 and 25-OHD3. 25-OHD3 indicates ??both endogenous production and supplementation. ??25-OHD2 is an indicator of exogenous sources such as ??diet or supplementation. ??Therapy is based on ??measurement of Total 25-OHD, with levels <20 ng/mL ??indicative of Vitamin D deficiency, while levels ??between 20 ng/mL and 30 ng/mL suggest insufficiency. ??Optimal levels are > or = 30 ng/mL. ??Vitamin D is fat-soluble and therefore inadvertent or ??intentional ingestion of excessively high amounts ??could be toxic. Studies in children and adults suggest ??blood levels would need to exceed 150 ng/mL before ??there is any concern. Karen MF, Lizbeth NC, ??Nelli KEITA, et al. Evaluation, treatment and ??prevention of vitamin D deficiency: an Endocrine ??Society clinical practice guideline. J Clin Endocrinol ??Metab. 2011;96(7):1911-30. ??For additional information, please refer to ??http://education.[employer]/faq/ZGF060 Cholecalciferol (Vitamin D3), Serum/Plasma 47 ng/mL [facility] ([facility]) Comment:Reference range: Not established Calciferol (Vitamin D2), Serum/Plasma <4.0 ng/mL [facility] ([facility]) Comment: (Note) Reference range: Not established This test was developed and its analytical performance characteristics have been determined by [employer]. It has not been cleared or approved by the US Food and Drug Administration. This assay has been validated pursuant to the CLIA regulation and is used for Clinical purposes. [facility] [address] [place] [address],[address] [place] [address] Talon Bill MD See Note 1 Note 1 For additional information, please refer to http://true[x] Media.[employer]/faq/ERM215 (This link is being provided for informational/ educational purposes only.) 08/11/2022 9:43 AM SHAMPOOER 08/11/2022 9:43 AM SHAMPOOER Narrative Resulting Agency Comment Performing Organization Information: ?Site ID: [id number] ?Name: [facility] ?Address: [address] [place] [address], [address] [address] ?Director: Talon Bill MD Garret Kahn MD LAB BLOOD ORDERABLES [facility] ([facility]) * (ABNORMAL) Total Protein w/ Creatinine, Urine, Random (08/11/2022 9:43 AM SHAMPOOER) Creatinine, Urine 103 20 - 320 mg/dL [facility] ([facility]) Protein/Creati nine, Urine 155(H) 25 - 148 mg/g creat [facility] ([facility]) Protein/Creati nine, Urine 0.155(H) 0.025 - 0.148 mg/mg creat [facility] ([facility]) Protein, Urine 16 5 - 25 mg/dL [facility] ([facility]) 08/11/2022 9:43 AM SHAMPOOER 08/11/2022 9:43 AM SHAMPOOER Narrative Resulting Agency Comment Performing Organization Information: ?Site ID: MA ?Name: [facility] ?Address: [facility] [place] [address] ?Director: Ross Tyler D.O., CHEMA Garret Kahn MD LAB URINE ORDERABLES [facility] ([facility]) * (ABNORMAL) Renal Function Panel (RFP) (08/11/2022 9:43 AM SHAMPOOER) Glucose, Serum/Plasma 111(H) 65 - 99 mg/dL [facility] ([facility]) Comment: ? Fasting reference interval For someone without known diabetes, a glucose value between 100 and 125 mg/dL is consistent with prediabetes and should be confirmed with a follow-up test. Urea nitrogen, Serum/Plasma (BUN) 36(H) 7 - 25 mg/dL [facility] ([facility]) Creatinine, Serum/Plasma 2.39(H) 0.70 - 1.28 mg/dL [facility] ([facility]) Estimated Glomerular Filtration Rate (eGFR) 28(L) > OR = 60 mL/min/1.7 3m2 [facility] ([facility]) Comment: The eGFR is based on the CKD-EPI 2021 equation. To calculate the new eGFR from a previous Creatinine or Cystatin C result, go to https://www.kidney.org/professionals/ kdoqi/gfr%5Fcalculator Urea nitrogen/Creati nine, Serum/Plasma 15 6 - 22 (calc) [facility] ([facility]) Sodium, Serum/Plasma 144 135 - 146 mmol/L [facility] ([facility]) Potassium, Serum/Plasma 4.5 3.5 - 5.3 mmol/L [facility] ([facility]) Chloride, Serum/Plasma 106 98 - 110 mmol/L [facility] ([facility]) Carbon dioxide CO2), total, Serum/Plasma 31 20 - 32 mmol/L [facility] ([facility]) Calcium, Serum/Plasma 9.0 8.6 - 10.3 mg/dL [facility] ([facility]) Phosphate, Serum/Plasma 5.0(H) 2.1 - 4.3 mg/dL [facility] ([facility]) Albumin, Serum/Plasma 3.9 3.6 - 5.1 g/dL [facility] ([facility]) Blood 08/11/2022 9:43 AM SHAMPOOER 08/11/2022 9:43 AM SHAMPOOER Narrative Resulting Agency Comment Performing Organization Information: ?Site ID: MA ?Name: [facility] ?Address: [address] [place] [address] [place] [address] ?Director: Ross Tyler D.O., MPH Garret Kahn MD LAB BLOOD ORDERABLES [facility] ([facility]) * (ABNORMAL) PTH Intact w/o Calcium, Serum (08/11/2022 9:43 AM SHAMPOOER) PTH, Intact, Serum/Plasma 123(H) 16 - 77 pg/mL [facility] ([facility]) Comment: Interpretive Guide ?Intact PTH ? Calcium ? ------- Normal Parathyroid ?Normal ? Normal Hypoparathyroidism ?Low or Low Normal ?Low Hyperparathyroidism ?? Primary ?Normal or High ? High ?? Secondary ?High ? Normal or Low ?? Tertiary ? High ? High Non-Parathyroid ?? Hypercalcemia ?Low or Low Normal ?High Blood 08/11/2022 9:43 AM SHAMPOOER 08/11/2022 9:43 AM SHAMPOOER Narrative Resulting Agency Comment Performing Organization Information: ?Site ID: MA ?Name: [facility] ?Address: [address] [place] [address] [address] ?Director: Ross Tyler D.O., MPH Garret Kahn MD LAB BLOOD ORDERABLES [facility] ([facility]) * (ABNORMAL) CBC (includes Differential/Platelets) (08/11/2022 9:43 AM SHAMPOOER) Leukocytes, Blood 7.9 3.8 - 10.8 Thousand/u L [facility] ([facility]) Erythrocytes (RBC) 4.41 4.20 - 5.80 Million/uL [facility] ([facility]) Hemoglobin (HGB) 11.7(L) 13.2 - 17.1 g/dL [facility] ([facility]) Hematocrit (HCT) 38.1(L) 38.5 - 50.0 % [facility] ([facility]) MCV 86.4 80.0 - 100.[address] [facility] ([facility]) MCH 26.5(L) 27.0 - 33.[address] [facility] ([facility]) MCHC 30.7(L) 32.0 - 36.0 g/dL [facility] ([facility]) Erythrocyte Distribution Width (RDW) 14.4 11.0 - 15.0 % [facility] ([facility]) Platelets, Blood 187 140 - 400 Thousand/u L [facility] ([facility]) Platelet mean volume, Blood 10.9 7.5 - 12.[address] [facility] ([facility]) Neutrophils, Blood 5,633 1,500 - 7,800 cells/uL [facility] ([facility]) Lymphocytes, Blood 1,304 850 - 3,900 cells/uL [facility] ([facility]) Monocytes, Blood 632 200 - 950 cells/uL [facility] ([facility]) Eosinophils, Blood 300 15 - 500 cells/uL [facility] ([facility]) Basophils, Blood 32 0 - 200 cells/uL [facility]) Neutrophils/100 leukocytes, Blood 71.3 % [facility]) Lymphocytes/100 leukocytes, Blood 16.5 % [facility]) Monocytes/100 leukocytes, Blood 8.0 % [facility]) Eosinophils/100 leukocytes, Blood 3.8 % [facility]) Basophils/100 leukocytes, Blood 0.4 % [facility]) Blood 08/11/2022 9:43 AM SHAMPOOER 08/11/2022 9:43 AM SHAMPOOER Narrative Resulting Agency Comment Performing Organization Information: ?Site ID: MA ?Name: [facility] ?Address: [address] [address] ?Director: Ross Tyler D.O., MPH Garret Kahn MD LAB BLOOD ORDERABLES [facility] ([facility]) documented in this encounter Visit Diagnoses Diagnosis Chronic kidney disease stage 4 (CMS-HCC)- Primary Secondary hyperparathyroidism (CMS-HCC) documented in this encounter Care Teams Bilingual Manager Relationship Specialty Start Date End Date Ranulfo Romo DO PCP - General Family Medicine 12/30/21 documented as of this encounter
--- OUTSIDE RECORDS SUMMARY | 2024-09-12 15:29 | XMS_ITS | Encounter Summary ---
Author Organization [facility] Address [address] [place] [address] Phone Care Team Providers Care Front Office Agent Name Role Phone DagmarRanulfo martinez Primary Care Provider Encounter Details Date Type Department Care Team (Late st Contact Info) Description 02/05/2022 Orders Only [facility] Nephrology and Hypertension [address] [facility], [address] [place] [address] Garret Kahn MD [address] [facility], [address] [place] [address] Social History Tobacco Use Types Packs/Day Years [...] Procedure Name Priority Date/Time Associated Diagnosis Comments UREA NITROGEN (UUN), URINE, 24 HOUR Routine 02/05/2022 1:28 PM CDT documented in this encounter Results * Urea Nitrogen (UUN), Urine, 24 Hour (02/05/2022 1:28 PM CDT) Urea nitrogen, 24 hour Urine (UUN) 9 6 - 17 g/24 [address] [facility]) Comment:URINE VOLUME: 2100/2 4 02/05/2022 1:2 8 PM CDT 02/05/2022 1:30 PM CDT Narrative [facility] ([facility]) - 02/06/2022 11:56 AM CDT SPLIT 02/03/2022 FROM [id number] MULTIPLE TESTING PRIORITIES; ROUTINE TESTING TO FOLLOW. Resulting Agency Comment Performing Organization Information: ?Site ID: OR ?Name: [facility] ?Address: [address] [place], [place] [address] [address] ?Director: Ross Tyler D.O., MPH Garret Kahn MD LAB URINE ORDERABLES [facility] ([facility]) documented in this encounter Visit Diagnoses Not on filedocumented in this encounter Care Teams Front Office Agent Relationship Specialty Start Date End Date Ranulfo Romo DO PCP - General Family Medicine 12/30/21 documented as of this encounter
--- OUTSIDE RECORDS SUMMARY | 2024-09-12 15:29 | XMS_ITS | Encounter Summary ---
Author Organization [facility] Address [address] [place] [address] Phone Care Team Providers Care Scale Expert Name Role Phone Ranulfo Romo Primary Care Provider [phone] Encounter Details Date Type Department Care Team (Latest Contact Info) Description 05/13/2022 11:15 AM CDT Office Visit [facility] Nephrology and Hypertension [address] [place] [address], [address] [place] [address] Garret Kahn MD [address] [facility], [address] [place] [address] Hypertension (Primary Dx); Chronic kidney disease stage 4 (CMS-HCC); Secondary hyperparathyroidism (CMS-HCC) Social History Tobacco Use Types Packs/Day Years [...] Mass Index 29.35 05/13/2022 11:45 AM CDT documented in this encounter Progress Notes * Garret Kahn MD - 05/13/2022 11:15 AM CDT Freddy Hill is a pleasant 71 y.o.male. Freddy is a very pleasant gentleman who is sent over because of an elevated creatinine. He had surgery on Tuesday: dilitaton of urethral stricture. He has a catheter now.it comes out tomorrow. Avoiding excess meat. Patient has peripheral vascular disease. This has [...] lower but also he has an aneurysm. Dr Galvan wants to do another angio and stent but pt wantsto wait. He wants to exercise and see if it gets better. Patient also has carotid artery disease and has had a right carotid endarterectomy. The patient has hypertension. This improved lately after his heart issues occurred. At home his bp has been below 130. He has chf. He is on lasix and edema is better. the patient has cardiac arrhythmias. He???s not sure exactly what the arrhythmia was but they put a pacemaker in him and he???s been fine ever cents. The patient has COPD. He???s on inhalers for this. He used to smoke but does not smoke any longer. The patient has psoriasis. He uses topicals for this. He also had a substantial skin rash on his back. He went to see five different dermatologists and none of them knew what it was so he went to [facility]. They also did not know what it was but prescribed dupixent for this. Since then his rash has improved. The patient has arthritis. He???s had bilateral total hip replacements. Past history: chronic kidney disease, hypertension, arrhythmias, [...] as above Abdomen: Negative except as above BP 118/68 Pulse 72 Temp 96.3 ??F (35.7 ??C) Ht 5' 8 (1.727 m) Wt 193 lb (87.5 kg) BMI 29.35 kg/m?? BSA 2.05 m?? WDWN male in NAD Skin warm and dry, no rash Neck no nodes, no TMG but bilateral bruits Lungs Clear to ausc and percussion Cor RRR no rub or gallop Abd BS+ nontender and soft, no masses, HSM, or bruits. Ext No cyanosis, clubbing, or edema. Recent Labs: 03/10/21 Cr 1.9 07/21/21 Cr 1.9, gfr 35, Na 130 09/30/21 Cr 2.2, gfr 30 06/30/22 Cr 2.04, gfr 32, 07/14/21 Cr 1.71, gfr 40, 10/29/21 Cr 2.52, gfr 25, CO2 31, Hb 11.5 Lab Results Component Value Date SPECGRAVUR 1.020 02/03/2022 PHUR 6.0 02/03/2022 GLUCOSEUR NEGATIVE 02/03/2022 BILIRUBINUR NEGATIVE 02/03/2022 KETONESUR NEGATIVE 02/03/2022 HGBUR NEGATIVE 02/03/2022 PROTUR 15 05/05/2022 NITRITEUR NEGATIVE 02/03/2022 WBCUR NONE SEEN 02/03/2022 RBCUR NONE SEEN 02/03/2022 EPICELLSUR NONE SEEN 02/03/2022 TOMAS NEGATIVE 02/24/2022 ESR 14 02/03/2022 COMPLEMENTC3 119 02/03/2022 COMPLEMENTC4 22 02/03/2022 CH50 56 02/03/2022 KLFREERATIO 1.46 02/03/2022 INTERPGYN Normal pattern. No monoclonal proteins detected. 02/03/2022 02/02/22 S+UIfx neg 24hUUN 9 Lab Results Component Value Date TOMAS NEGATIVE 02/24/2022 SSA <1.0 NEG 02/24/2022 SSB <1.0 NEG 02/24/2022 ANCA NEGATIVE 02/24/2022 BASEMENTMEMB <1.0 02/24/2022 ANTIDNADS <1 02/24/2022 RF <14 02/24/2022 Lab Results Component Value Date BUN 37 (H) 05/05/2022 CREATININE 2.35 (H) 05/05/2022 EGFRAA 29 (L) 02/03/2022 EGFR 25 (L) 02/03/2022 PROTCREATUR 132 05/05/2022 PROTCREATUR 0.132 05/05/2022 PROTCREATUR 153 (H) 02/03/2022 PROTCREATUR 0.153 (H) 02/03/2022 NA 140 05/05/2022 K 4.0 05/05/2022 CL 101 05/05/2022 CO2 29 05/05/2022 CA 8.8 05/05/2022 PHOSPHATE 4.0 05/05/2022 ALBUMIN 3.9 05/05/2022 GLUCOSE 110 (H) 05/05/2022 PTH 88 (H) 02/03/2022 WBC 7.6 02/03/2022 HGB 10.7 (L) 02/03/2022 PLT 88 (L) 02/03/2022 Imagin11/12/21 CT with contrast Multiple lung nodules and fibrosis. 11/24/21 Echo EF 66%, DD1 02/08/22 Renal U/S normal except for a simple cyst Impression: Freddy has an elevated creatinine. There are several things going on here. He has chronic kidney disease. Most likely this is due to hypertension and vascular disease. Serology is normal now (on repeat) immunofix is negative UA is bland US is okay To preserve renal function: Use ASHLIE/ARB No need since no DM or proteinuria from the kidney standpoint. He was on it before and the gfr dropped. Control bp Control Cholesterol Check PTH Th is is high. Check vit d. Avoid dairy and nuts/beans Low protein diet on this Maintain CO2 Avoid NSAIDs Stay well hydrated The patients BMI is okay. Plan Same meds Fluids Labs next visit Avoid excess protein, dairy, nuts, beans. RTC 4 months Assessment/Plan Diagnoses and all orders for this visit: Hypertension Chronic kidney disease stage 4 (CMS-HCC) documented in this encounter Plan of Treatment Scheduled Orders Name Type Priority Associated Diagnoses Orde r Schedule CBC (includes Differential/Platel ets) Lab Routine Hypertension Chronic kidney disease stage 4 (CMS-HCC) Secondary hyperparathyroidism (CMS-HCC) 1 Occurrences starting 05/13/2022 until 05/13/2023 PTH Intact w/o Calcium, Serum Lab Routine Hypertension Chronic kidney disease stage 4 (CMS-HCC) Secondary hyperparathyroidism (CMS-HCC) 1 Occurrences starting 05/13/2022 until 05/13/2023 Total Protein w/ Creatinine, Urine, Random Lab Routine Hypertension Chronic kidney disease stage 4 (CMS-HCC) Secondary hyperparathyroidism (CMS-HCC) 1 Occurrences starting 05/13/2022 until 05/13/2023 Renal Function Panel (RFP) Lab Routine Hypertension Chronic kidney disease stage 4 (CMS-HCC) Secondary hyperparathyroidism (CMS-HCC) 1 Occurrences starting 05/13/2022 until 05/13/2023 Vitamin D, 25-Hydroxy, Serum Lab Routine Hypertension Chronic kidney disease stage 4 (CMS-HCC) Secondary hyperparathyroidism (CMS-HCC) 1 Occurrences starting 05/13/2022 until 05/13/2023 documented as of this encounter Visit Diagnoses Diagnosis Hypertension- Primary Chronic kidney disease stage 4 (CMS-HCC) Secondary hyperparathyroidism (CMS-HCC) documented in this encounter Care Teams Scale Expert Relationship Specialty Start Date End Date Ranulfo Romo DO PCP - General Family Medicine 12/30/21 documented as of this encounter
--- OUTSIDE RECORDS SUMMARY | 2024-09-12 15:29 | XMS_ITS | Encounter Summary ---
Author Organization [facility] Address [address] [place] [id number] Phone Care Team Providers Care Bleach Machine Operator Name Role Phone Ranulfo Romo Primary Care Provider [phone] Encounter Details Date Type Department Care Team (Late st Contact Info) Description 05/26/2022 Orders Only [facility] Nephrology and Hypertension [address] [facility], [address] [place] [id number] Garret Kahn MD [address] [facility], [address] [place] [address] Chronic kidney disease stage 4 (CMS-HCC) (Primary [...] on file documented as of this encounter Progress Notes * Garret Kahn MD - 05/26/2022 2:40 PM CDT Pt Inhospital. Has bactermia Got a JACC and is on 6 wk of atbs. He will get labs done in a couple of weeks to be sure K and creatinine okay. Pt to call office. pt to see me in 4-6 weeks. documented in this encounter Plan of Treatment Scheduled Orders Name Type Priority Associated Diagnoses Orde r Schedule Renal Function Panel (RFP) Lab Routine Chronic kidney disease stage 4 (CMS-HCC) 1 Occurrences starting 05/26/2022 until 05/26/2023 documented as of this encounter Visit Diagnoses Diagnosis Chronic kidney disease stage 4 (CMS-HCC)- Primary documented in this encounter Care Teams Bleach Machine Operator Relationship Specialty Start Date End Date Ranulfo Romo DO PCP - General Family Medicine 12/30/21 documented as of this encounter
--- OUTSIDE RECORDS SUMMARY | 2024-09-12 15:30 | XMS_ITS | Encounter Summary ---
Author Organization [facility] Address [address] [place] [address]. [address] [address] Care Team Providers Care Ict Programmer Name Role Phone Ross Espinosa MD Primary Care Provider [phone] Encounter Details Date Type Department Care Team (Latest Contact Info) Description 11/09/2021 Travel Social History Tobacco Use Types Packs/Day Years Used Date Smoking Tobacco: Former Cigarettes 2 40 1 970 - 2009 Smokeless Tobacco: Never Alcohol Use Standard Drinks/Week Comments Not Currently 0 (1 standard drink = 0.6 oz pur e alcohol) Sex and Gender Information Value Date Recorded Sex Assigned at Not on file Legal Sex Male 3:43 PM [employer] Gender Identity Male 10/27/2021 1:50 PM [employer] Sexual Orientation Straight 10/27/2021 1: 50 PM [employer] COVID-19 Exposure Response Date Recorded In the last 10 days, have yo u been in contact with someone who was confirmed or suspected to have Coronavirus/COVID-19? No / Unsure 11/09/2021 5:31 AM CDT documented as of this encounter Plan of Treatment Not on file documented as of this encounter Visit Diagnoses Not on filedocumented in this encounter Care Teams Ict Programmer Relationship Specialty Start Date End Date Ross Espinosa MD [address] [place] [address] PCP - General INTERNAL MEDICINE 10/29/21 03/29/22 documented as of this encounter
--- OUTSIDE RECORDS SUMMARY | 2024-09-12 15:30 | XMS_ITS | Encounter Summary ---
Author Organization [facility] Address [address] [place] [address]. [address] [address] Care Team Providers Care Inside Sales Coordinator Name Role Phone Ross Espinosa MD Primary Care Provider [phone] Encounter Details Date Type Department Care Team (Latest Contact Info) Description 11/05/2021 Travel Social History Tobacco Use Types Packs/Day Years Used Date Smoking Tobacco: Former Cigarettes 2 40 1 970 - 2009 Smokeless Tobacco: Never Alcohol Use Standard Drinks/Week Comments Not Currently 0 (1 standard drink = 0.6 oz pur e alcohol) Sex and Gender Information Value Date Recorded Sex Assigned at Not on file Legal Sex Male 3:43 PM CONVEX GRINDER Gender Identity Male 10/27/2021 1:50 PM CONVEX GRINDER Sexual Orientation Straight 10/27/2021 1: 50 PM [employer]VEX GR[employer]ER COVID-19 Exposure Response Date Recorded In the last 10 days, have yo u been in contact with someone who was confirmed or suspected to have Coronavirus/COVID-19? No / Unsure 11/04/2021 10:25 AM CDT documented as of this encounter Plan of Treatment Not on file documented as of this encounter Visit Diagnoses Not on filedocumented in this encounter Care Teams Inside Sales Coordinator Relationship Specialty Start Date End Date Ross Espinosa MD [address] [place] [address] PCP - General INTERNAL MEDICINE 10/29/21 03/29/22 documented as of this encounter
--- OUTSIDE RECORDS SUMMARY | 2024-09-12 15:30 | XMS_ITS | Encounter Summary ---
Author Organization [facility] Address [address] [place] [address]. 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 Name Role Phone Ranulfo Romo DO Primary Care Provider [phone] Josiah Lay MD Unavailable Daniela Hilario [facility] Unavailable [phone]- [phone] Reason for Visit * Auth/Cert Specialty Diagnoses / Procedures Referred By Jovany carver Referred To Contact Diagnoses URETHRAL STRICTURE IN MALE N35.919, N39.0, N45.2 Procedures CYSTOSCOPY WITH COLD KNIFE DIRECT VISION INTERNAL URETHROTOMY Ranulfo Bailey MD [address] [place] [address] Phone: tel: fax: Referral ID Status Reason Start Date Expiration Date Visits Re quested Visits Authorized [id number] 1 1 Encounter Details Date Type Department Care Team (Latest Contact Info) Description 05/10/2022 10:08 AM CDT - 05/10/2022 5:30 PM T Hospital Encounter [facility] [place], [place] [id number] Ranulfo Bailey MD [address] [place], [place] [id number] Discharge Disposition: Home or Self Care (Routine Discharge) Social History Tobacco Use Types Packs/Day Years Used Date Smoking Tobacco: Former Cigarettes 2 40 1 970 - 2009 Smokeless Tobacco: Never Alcohol Use Standard Drinks/Week Comments Not Currently 0 (1 standard drink = 0.6 oz pur e alcohol) Sex and Gender Information Value Date Recorded Sex Assigned at Not on file Legal Sex Male 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 No / Unsure 05/10/2022 10:07 AM CDT documented as of this encounter Last Filed [...] Mass Index 29.33 05/10/2022 10:33 AM CDT documented in this encounter Discharge Instructions * Discharge Instructions* Ranulfo Bailey MD - 05/10/2022 3:33 PM CDT You may restart your Plavix in 48 hours, and restart your Xarelto in 72 hours Your urine will be bloody and should begin to clear a few days after your treatment. Increase fluids until your urine clears. Call your doctor if you develop a fever above 100 degrees of have thick, blood clotted urine. If your doctor hasn???t given you a prescription for pain relievers, take two Tylenol every four hours, as needed. If the pain does not get better, call your doctor. If you received a prescription for antibiotics, take all of the medication as directed. Do not discontinue this medication until all the pills are gone. Return to your usual medications, unless otherwise directed by your doctor. Do not take aspirin products until your urine begins to clear. Because you had anesthesia, we suggest these things: -Avoid greasy, fried or spicy foods for today -Take medication with food -Take an over the counter stool softener if needed for constipation while taking pain medication -Have a responsible adult stay with you the rest of today and overnight -No alcohol, driving, making major decision or operating machinery for 24 hours or while taking pain medication If you have chest pain, shortness of breath, excessive bleeding or drainage, if you cannot hold down anything to eat or drink, or if you cannot urinate, please call 911 or go to the nearest emergencyroom. If you have fever, pain not controlled by your medication, signs of infection such as redness or discharge or swelling at the site, or any other questions or concerns, please call your surgeon. * Attachments The following attachments cannot be sent through Care Everywhere. * How to Care for Your Kumari Catheter, Male (Mozambican) * Urethral Dilation (Mozambican) * General Anesthesia Discharge Instructions (Mozambican) documented in this encounter Medications at Time of Discharge acetaminophen 500 MG tablet Take 500 mg by mouth every 6 (six) hours as needed for Pain. albuterol sulfate HFA 108 (90 Base) MCG/ACT inhaler Inhale 2 puffs into the lungs every 6 (six) hours as needed for Wheezing. amLODIPine (NORVASC) 10 MG tablet Take 10 mg by mouth nightly. atorvastatin (LIPITOR) 80 MG tablet Take 80 mg by mouth nightly at bedtime. carvedilol 25 MG tablet Take 25 mg by mouth daily. In am 50 mg at hs carvedilol 25 MG tablet Take 50 mg by mouth nightly. cetirizine 10 MG chewable tablet Chew 10 mg by mouth nightly. cilostazol 100 MG tablet Take 100 mg by mouth 2 (two) times daily. 10/22/2021 cloNIDine (CATAPRES) 0.1 MG tablet Take 0.1 mg by mouth nightly. clopidogrel (PLAVIX) 75 MG tablet Take 75 mg by mouth daily. doxepin 25 MG capsule Take 25 mg by mouth nightly at bedtime. Dupilumab (DUPIXENT) 300 MG/2ML Solution Pen-injector Inject 1 Application into the skin every 14 (fourteen) days. To prevent rash furosemide 40 MG tablet Take 40 mg by mouth daily. gabapentin 300 MG capsule Take 300 mg by mouth nightly. Multiple Vitamin (MULTIVITAMIN ADULT OR) Take 1 tablet by mouth daily. OXYGEN 2 L/min by Nasal route. continuous at night, carries portable during day if exerting self 06/24/2021 pantoprazole EC 40 MG tablet Take 40 mg by mouth daily. 10/22/2021 potassium chloride CR 10 MEQ Tab CR tablet Take 1 tablet by mouth daily. When he takes lasix rivaroxaban (XARELTO) 2.5 MG tablet Take 1 tablet by mouth 2 (two) times daily. 12/30/2021 tamsulosin 0.4 MG Cap Take 0.8 mg by mouth daily. 06/23/2021 tiotropium (SPIRIVA RESPIMAT) 2.5 MCG/ACT inhaler (SPIRIVA RESPIMAT) Inhale 2 puffs into the lungs daily. 04/21/2021 traMADol 50 MG tablet Take 50 mg by mouth every 6 (six) hours as needed for Pain. triamcinolone 0.1 % ointment APPLY DAILY TO RASH ON ELBOWS 08/20/2021 WIXELA INHUB 500-50 MCG/DOSE inhaler Inhale 1 puff into the lungs 2 (two) times daily. 10/06/2021 oxyCODONE immediate release (ROXICODONE) 5 MG immediate release tabletIndication s:Acute Pain < 3 Day Supply Take 1 tablet (5 mg total) by mouth every 6 (six) hours as needed. Indications: Acute Pain < 3 Day Supply 12 tablet 05/10/2022 2 documented as of this encounter H&P Notes * Ranulfo Bailey MD - 05/10/2022 1:24 PM CDT Images from the original note were not included. Urologic Surgery Inpatient Consult Note Encounter Date: 05/09/2022 Patient Name: Freddy Hill Chief Complaint: Urethral Stricture Disease Planned Procedure: Cystoscopy, DVIU History of Present Illness: Mr. Hill is a 71-year-old male who presents for the above procedure today. In October he had a DVIU of the penile urethra, did well, but now has scar in his bulbar urethra, so presents for DIVU of this scar. He has held his plavix for 5 days and his xarelto for 3 days. Past Medical History: Diagnosis Date ??? Anemia 2/2 blood thinners ??? Anesthesia after hip surgery was in hospital for a week after to get kidneys functioning again. ??? Arthritis ??? AV block ??? Carotid artery stenosis s/p right CEA 2013 ??? Chronic kidney disease (CKD), stage III (moderate) (CMS/HCC) ??? Claudication (CMS/HCC) ??? COPD (chronic obstructive pulmonary disease) (CMS/HCC) ??? GERD (gastroesophageal reflux disease) ??? Gross hematuria ??? HLD (hyperlipidemia) was a smoker 40 years, Started on atorvastatin after carotid artery surgery. Denies High Cholestrol ??? Hypertension ??? Iliac aneurysm (CMS/HCC) x 3 stents ??? ANDRZEJ (obstructive sleep apnea) no cpap ??? Oxygen desaturation during sleep wears 2 liters at night ??? Pacemaker medtronic ??? PAD (peripheral artery disease) (CMS/HCC) ??? PNA (pneumonia) 05/2021 ??? PONV (postoperative nausea and vomiting) ??? PVD (peripheral vascular disease) (CMS/HCC) ??? Urethral stricture Past Surgical History: Procedure Laterality Date ??? ANESTH, LIMB ARTERIOGRAM.... Left with stents x 3 ??? CAROTID ENDARTERECTOMY Right 2013 ??? COLONOSCOPY ??? CYSTOSCOPY 10/2021 ??? FEMUR FRACTURE SURGERY Right with hardware ??? HERNIA REPAIR ??? HIP ARTHROPLASTY Bilateral and 1 revision ??? PACEMAKER 2019 ??? SINUS SURGERY for sleep apnea ??? THORACOTOMY 05/2021 at [facility] Social History Socioeconomic History ??? Marital status: Legally Tobacco Use ??? Smoking status: Former Smoker Packs/day: 2.00 Years: 40.00 Pack years: 80.00 Types: Cigarettes Quit date: 2010 Years since quittin.7 ??? Smokeless tobacco: Never Used Substance and Sexual Activity ??? Alcohol use: Not Currently ??? Drug use: Not Currently Family History Problem Relation Name Age of Onset ??? Diabetes Mother ??? Hypertension Mother ??? Hypertension Father ??? Stroke Father ??? Hypertension Sister ??? No Known Problems Brother ??? Hypertension Sister ??? Heart Disease Sister valve replacement Medications: MEDICATIONS FOR CURRENT ENCOUNTER: ?? SCHEDULED MEDICATIONS: ?? CONTINUOUS MEDICATIONS: ?? PRN MEDICATIONS: Allergies: No Known Allergies Review of Systems: ROS negative other than stated in HPI Vitals There were no vitals filed for this visit. Intake / Output: No intake or output data in the 24 hours ending 05/09/22 1403 Physical Examination: General: Patient is alert and oriented in no acute distress. Head: Normocephalic, atraumatic. Eyes: Sclera anicteric. Cardiovascular: Peripheral perfusion appears adequate. Chest: Non-labored respirations. Psychiatric: Appropriate affect and mood. Laboratory: No results for input(s): WBC, HGB, HCT in the last 168 hours. Invalid input(s): LABPLAT No results for input(s): CO2, ANIONGAP, PROTEIN, ALT, AST in the last 168 hours. Invalid input(s): SODIUM, POTASSIUM, CHLORIDE, GLUCOSE, BUNSER, CREATININE, BCR, CALCIUM, ALBUMIN, ALKPHOS, BILITOT No results for input(s): APTT, INR, PTT in the last 168 hours. No results found for: PSA Invalid input(s): COLORU, CLARITYU, SPECGRAVU, PHURINE, PROTURQL, GLUCOSEUR, KETONESU, BILIRUBINU, BLOODUR, UROBILINOGUR, NITRITEU, LEUKESTUR Imaging: None Assessment: 11/09/2021 - DVIU No tumors on cysto Distal penile urethral stricture, 5-10mm in length, 20-30mm proximal to the meatus -- incised well,healthy appearing tissue distally and proximally to incision No bladder tumors on cystoscopy 01/07/2022 - Patient went to [place] in urinary retention -- failed kumari attempts lead to office cysto which was also unsuccessful -- patient required OR for cysto, kumari placement, possible suprapubic tube placement with Dr. Aguero 01/07/2022 - Cysto, Urethral dilation, Kumari placement (patient had false passage, was able to pass wire and dilate) 02/01/2022 Cysto - Flexible cystoscope passed beyond the meatus, but now with a new distal bulbar urethral stricture, difficult to estimate length, but is 5-8Fr Based on Cysto showing recurred stricture, I explained that he will need another DVIU off blood thinners; because this is in a different location than his previous stricture, I believe DVIU to be reasonable, but we discussed post-op he may need to CIC daily to try and maintain patency -- and that we have a low threshold to refer to a reconstructive urologist in case he needs repair Recommendations: 1. To OR for DVIU; kumari 3-5d post-op, then plan for daily CIC after 2. R/B/A discussed, and patient agrees to proceed -------- Ranulfo Bailey M.D. [facility] documented in this encounter Nursing Notes * George Astudillo RN - 05/10/2022 3:08 PM CDT Called and gave family update to sister Michelle. documented in this encounter OR Notes * Brief Op Note - Ranulfo Bailey MD - 05/10/2022 3:27 PM CDT Images from the original note were not included. BRIEF OPERATIVE REPORT SURGEON: Ranulfo Bailey MD SURGICAL TEAM: Surgeon(s) and Role: * Ranulfo Bailey MD - Primary DATE OF SURGERY : 05/10/2022 PREOPERATIVE DIAGNOSIS: URETHRAL STRICTURE IN MALE N35.919, N39.0, N45.2 POSTOPERATIVE DIAGNOSIS: Same PROCEDURE: #1) Cystoscopy, Direct Visual Internal Urethrotomy of Bulbar Urethral Stricture (15-20mm in length) #2) Dilation of male urethral stricture (initial) #3) Dilation of male urethral stricture (subsequent) #4) Complex kumari catheter placement FINDINGS: [place]-urethral blanching/narrowing, but penile urethra patent (had DVIU for this 10/2021); 5Fr, soft, 15-20mm, bulbar urethral scar; tissue vascular after cutting SPECIMENS: * No orders in the log * ESTIMATED BLOOD LOSS: 10 cc DRAINS: None ANESTHESIA: General COMPLICATIONS: None RANULFO BAILEY MD Date: 05/10/2022 Time: 3:27 PM * Op Note - Ranulfo Bailey MD - 05/10/2022 1:45 PM CDT Prior to the operation an informed consent was obtained. The patient was brought back to the operative suite and a detail timeout was performed. General anesthesia was induced without complication. The patient was administered IV antibiotics inthe prophylactic form. The patient was positioned in the dorsal lithotomy position with close attention to all pressure points and was prepped and draped in sterile fashion. ?? We began the case using a 21Fr Rigid scope, which, after dilating the urethra (see below) passed beyond his previously treated distal urethral stricture and to the bulbar urethral stricture which is in the distal portion of the bulbar urethra, about 5Fr. Consistent with his first DVIU in October 2021 for his distal urethral stricture, his penile urethra was notable for dilated glands of Littre as well as having a pale urethral mucosa throughout and a 18-22Fr caliber urethra which did make the scope passage a little difficult -- to help the scope reach the proximal stricture, I passed a sensor wire through the scope, beyond the stricture and into the bladder. ?? I used an 18Fr S curved dilator over the wire to initially dilate the urethra, then subsequently dilated it with a 20Fr dilator -- I only passed these in partially to dilate the penile urethra, but to avoid dilating the bulbar urethral scar. ?? With a 21Fr Rigid scope now able to easily pass up to the level of the stricture, I used our zero-degree lens and a cold knife to make 4 & 8 o'clock incisions into the ventral aspect of the bulbar urethra's scar -- there was supple, vascularized, tissue, proximal and distal to the incision, andthe scar sprang open satisfactorily. The spongiosum tissue behind the scar appeared healthy and vascularized -- very similar to his procedure in October With the scar incised, I drove the scope up beyond the scar -- his prostate is about 30cc with lateral lobe coaptation, no median lobe. His ureteral orifices were orthotopic with clear efflux of urine. There were no bladder tumors. Pulling the scope back, I could better appreciate that the length of this bulbar urethral scar is 15-20mm, and about 15-20mm distal to the veru montanum ?? I placed a 20Fr [place]-tipped kumari catheter over our sensor wire, and it passed with constant, mild, pressure and back-tension on the wire -- and filled the balloon with 10cc sterile water. I irrigated the kumari with sterile water and it was light pink without clots or tissue. ?? Patient tolerated the procedure well and all counts were correct at the conclusion of the case ?? PLAN: -PACU, home with kumari, stat lock, leg bag, and bedside bag -Kumari removal and CIC teaching 3-5 days post-op -Will do CIC 1-2x a day to maintain urethral patency -RTC 6-12 weeks after -- will consider urine-flow study to monitor flow rates post-op for a future comparison if his LUTS worsens -In discussions with the patient, he is aware that recurrence is a real possibility with this scar,and he may need a formal reconstruction * OR PreOp - Sury Torres CNP - 05/05/2022 3:00 PM CDT Addendum 04/08/22: Pt surgery rescheduled 2/2 URI. Has completed antibiotics and symptoms resolved. Denies changes in health history. Lasix added to medication list. Original note copied below. Updated cardiac clearance 05/05/[address] Lay in leiter- intermediate risk Stress test 04/08/[address] changes. Left ventricular ejection fraction is 41 %. There is mild to moderate LV dysfunction. There is dyskinesis in the basal inferoseptal segment and basal inferior segment. Myocardial perfusion imaging is abnormal fixed mid inferior defect and basal inferior and basal inferoseptal alethea-infarct ischemia. Recommend follow up with reducer. Original Note: Chart reviewed. Per phone interview, patient states he would be very SOB with 1 FOS, denies CP. Activity tolerance worse over 6 months 2/2 congestion. Patient sees reducer Dr. Lay and previous cardiac testing copied. ?? Hx PONV ?? Pt currently taking Cipro for respiratory infection through 04/08/22, will need to postpone surgery until antibiotic course is finished and symptoms have resolved. ?? Per Dr. Lay pt may hold Plavix 5 days and Xarelto 3 days. Please request cardiac clearance (level of risk not filled out on instruction sheet). ?? Pacemaker interrogation 02/17/22 [employer] Marmet Dual Pacemaker. Dx; Second Degree AVB, Symptomatic Bradycardia. DOI 05/02/2019-Dr Zenia Good ([place]). Carelink remote. Routine Pacemaker remote. Normal device function. Battery function-2,99V, 7.7 years remaining battery life to HERMELINDO. Appropriate lead measurements. Presenting rhythm-ASVP. AP-7%, PRODUCT STEWARD-100%. ?? EKG 06/11/21 Atrial-sensed ventricular-paced rhythm (see lead 111) Nonspecific ST segment abnormalities consistent with ischemia,metabolic abnormalities,drugs,etc. No previous ECGs available Rate 83 ?? EKG 05/13/21 -sinus rhythm, left bundle-branch block. Cardiac cath 03/03/22 Severe, calcific PAD- A) diffusely calcific and ectatic abdominal aorta B) left common iliac aneurysm; right common iliac ectasia; mild diffuse disease bilateral external iliac arteries. C) right leg- about 90-95% calcific stenosis distal segment of right common femoral artery involving the origins of right PFA and SFA; high-grade, densely calcific stenosis mid segment of right SFA; about 90% eccentric calcific stenosis popliteal artery; 3 vessel runoff D) left leg- about 90% focal stenosis proximal segment of left SFA; patent previously placed mid-distal SFA stent with mild ISR; three-vessel left runoff. ?? Echo 11/24/21 -Normal left ventricular size. Definity contrast agent used to visually enhance endocardial wall motion and contractility. Normal global left ventricular systolic function. Impaired diastolic relaxation Grade I. Ejection fraction is measured at 66 %. Mild enlargement of left atrium. Normal appearance of the mitral valve. Peak gradient of 10.0 mmHg. Mean gradient of 5.0 mmHg. Valve area of 1.79 cm2. Aortic cusps appear mildly sclerotic. SULEMA 03/19/22 1. The above listed right Ankle/Brachial Index at rest is consistent with moderate peripheral arterial disease - claudication (for reference, claudication range is 0.50 -0.89). 2. The above listed left Ankle/Brachial Index at rest is within normal limits (for reference, normal resting SULEMA is 0.90 - >1.00; SULEMA >1.00 due to incompressible arteries is not diagnostic). 3. Bilateral Digit/Arm Indices are within normal limits (for reference, normal DANIEL is >0.6). Venous duplex 07/17/21-no DVT * OR PreOp - Ella Mcwilliams RN - 04/29/2022 4:02 PM CDT Surgery rescheduled 09/23 URI- no longer has it completed antibiotics- denies any other changes in health history except now take lasix daily- reviewed medications and instructions with him See care everywhere- had stress test 04/12- I asked patient about it and he said it was a little abnormal and they are just treating him with meds- no further intervention planned- I called Dr Lay's office (cardiology) and spoke to Sana regarding this- she asked me to fax a new clearance request, which I did. I informed all the above to Kaylyn. 05/05/22 0900- Molly called to see if we received their clearance back (Dr Lay) I informed her the one I have was from before his stress test and needed a new one since he had that- she will talk with reducer and fax it ones he sees it and give the ok. I spoke with Kaylyn at Dr Law office- stated pt does need to hold his plavix and Xarelto- I called pt to make sure he is aware- confirmed Xarelto 3 days and Plavix 5 days per cardiology note Ladan at [employer] informed of surgery documented in this encounter Plan of Treatment Not on file documented as of this encounter Procedures Procedure Name Priority Date/Time Associated Diagnosis Comments CYSTOSCOPY URETHRAL DILATATION INSERTION CATHETER 05/10/2022 2:44 PM CDT URETHRAL STRICTURE IN MALE N35.919, N39.0, N45.2 Case Notes SCHED BY FAX ON 03/17/22 [facility] PHONE ASSESS documented in this encounter Visit Diagnoses Diagnosis Urethral stricture in male- Primary documented in this encounter Administered Medications Inactive Administered Medications - up to 3 most recent administrations Medication Order MAR Action Action Date Dose Rate Site acetaminophen (TYLENOL) tablet 1,000 mg 1,000 mg, Oral, Once, 1 dose, On Tue05/10/22 at 1615, Maximum dose of acetaminophen is 4000 mg from all sources in 24 hours. Given During Downtime 05/10/2022 4:03 PM CDT 1,000 mg famotidine (PF) (PEPCID) injection 20 mg 20 mg, Intravenous, Once, 1 dose, On Tue05/10/22 at 1045, On admission IV Push over 2 minutes, Pre-Op Given 05/10/2022 10:48 AM CDT 20 mg fentaNYL (SUBLIMAZE) injection 25 mcg 25 mcg, Intravenous, Every 5 min PRN, Moderate pain (Scale 4 - 7), 4 doses, Starting on Tue05/10/22 at 1510, Until Tue05/10/22 at 1708, Maximum cumulative dose 100 mcg. Do not administer if patient is overly sedated, SpO2 less than 90%, or Respiratory Rate less than 12. If more than one IV analgesic is ordered per pain level, use in this order: fentaNYL, morphine, HYDROmorphone. If desired pain control is not reached, move to next ordered medication at next dosing interval., PACU Given 05/10/2022 4:05 PM CDT 25 mcg Given 05/10/2022 4:00 PM CDT 25 mcg lactated ringers infusion at 10 mL/hr, Intravenous, Continuous, Starting on Tue05/10/22 at 1045, Until Tue05/10/22 at 1941, Infuse at TKO rate, Pre-Op New Bag 05/10/2022 2:45 PM CDT ondansetron (ZOFRAN) injection 4 mg 4 mg, Intravenous, Once, 1 dose, On Tue05/10/22 at 1045, On admission, Pre-Op Given 05/10/2022 10:48 AM CDT 4 mg traMADol (ULTRAM) tablet 50 mg 50 mg, Oral, Once, 1 dose, On Tue05/10/22 at 1615 Given During Downtime 05/10/2022 4:04 PM CDT 50 mg documented in this encounter Active and Recently Administered Medications Times are shown in CDT. Scheduled Medication Order 05/08/2022 05/09/2022 05/10/2022 acetaminophen (TYLENOL) tablet 1,000 mg (COMPLETED) 1,000 mg, Oral, Once, 1 dose, On Tue05/10/22 at 1615, Maximum dose of acetaminophen is 4000 mg from all sources in 24 hours. 1603 (Given During D owntime - Provider: Brianna Sykes RN) ceFAZolin (ANCEF) 2 g in NS 100 mL IVPB (COMPLETED) 2 g, Intravenous, at 200 mL/hr, call center analyst to O.R., 1 dose, First dose on Tue05/10/22 at 1045, Pre-Op 1456 (Given - Provid er: Rasheed Berry CRNA)1526 (Infusion Stop Time - Provider: Rasheed Berry CRNA) famotidine (PF) (PEPCID) injection 20 mg (COMPLETED) 20 mg, Intravenous, Once, 1 dose, On Tue05/10/22 at 1045, On admission IV Push over 2 minutes, Pre-Op 1048 (Given - Provid er: Rosibel Archer RN) ondansetron (ZOFRAN) injection 4 mg (COMPLETED) 4 mg, Intravenous, Once, 1 dose, On Tue05/10/22 at 1045, On admission, Pre-Op 1048 (Given - Provid er: Rosibel Archer RN) traMADol (ULTRAM) tablet 50 mg (COMPLETED) 50 mg, Oral, Once, 1 dose, On Tue05/10/22 at 1615 1604 (Given During D owntime - Provider: Brianna Sykes RN) Continuous Medication Order 05/08/2022 05/09/2022 05/10/2022 lactated ringers infusion at 10 mL/hr, Intravenous, Continuous, Starting on Tue05/10/22 at 1045, Until Tue05/10/22 at 1941, Infuse at TKO rate, Pre-Op 1445 (New Bag - Prov ider: Rasheed Berry CRNA)1502 (Anesthesia Volume Adjustment - Provider: Rasheed Berry CRNA)1526 (Anesthesia Volume Adjustment - Provider: Sunny Lopes CRNA) PRN Medication Order 05/08/2022 05/09/2022 05/10/2022 fentaNYL (SUBLIMAZE) injection 25 mcg (CANCELED) 25 mcg, Intravenous, Every 5 min PRN, Moderate pain (Scale 4 - 7), 4 doses, Starting on Tue05/10/22 at 1510, Until Tue05/10/22 at 1708, Maximum cumulative dose 100 mcg. Do not administer if patient is overly sedated, SpO2 less than 90%, or Respiratory Rate less than 12. If more than one IV analgesic is ordered per pain level, use in this order: fentaNYL, morphine, HYDROmorphone. If desired pain control is not reached, move to next ordered medication at next dosing interval., PACU 1600 (Given - Provid er: Brianna Sykes RN)1605 (Given - Provider: Brianna Sykes RN) documented in this encounter Care Teams Oil Well Drilling Manager Relationship Specialty Start Date End Date Ranulfo Romo DO [facility] [address] [place] [address] PCP - General FAMILY PRACTICE 03/30/22 Josiah Lay MD [address] [place] [address] CARDIOVASCULAR DISEASE 03/30/22 Daniela Hilario, [facility]- [address] [facility] [address] [place] [address] Nurse Practitioner Family 03/30/22 documented as of this encounter
--- OUTSIDE RECORDS SUMMARY | 2024-09-12 15:30 | XMS_ITS | Encounter Summary ---
Author Organization [facility] Address [address] [place] [address]. [place], [place] [address] [place] [address] Care Team Providers Care Slots Manager Name Role Phone Ross Espinosa MD Primary Care Provider [phone] Reason for Visit * Auth/Cert Specialty Diagnoses / Procedures Referred By Jovany carver Referred To Contact Diagnoses GROSS HEMATURIA AND URINARY RETENTION R31.0, R33.9 Procedures CYSTOSCOPY WITH POSSIBLE DIRECT VISION INTERNAL URETHROTOMY Referral ID Status Reason Start Date Expiration Date Visits Re quested Visits Authorized [id number] 1 1 Encounter Details Date Type Department Care Team (Latest Contact Info) Description 11/09/2021 5:31 AM CDT - 11/09/2021 9:45 AM T Hospital Encounter [facility] [place] [address] Kofi Bailey MD [address] [place] [address] Discharge Disposition: Home or Self Care (Routine Discharge) Social History Tobacco Use Types Packs/Day Years Used Date Smoking Tobacco: Former Cigarettes 2 40 1 970 - 2010 Smokeless Tobacco: Never Alcohol Use Standard Drinks/Week Comments Not Currently 0 (1 standard drink = 0.6 oz pur e alcohol) Sex and Gender Information Value Date Recorded Sex Assigned at Not on file Legal Sex Male 3:43 PM SENIOR ARCHITECT/DESIGN MANAGER Gender Identity Male 10/27/2021 1:50 PM SENIOR ARCHITECT/DESIGN MANAGER Sexual Orientation Straight 10/27/2021 1: 50 PM SENIOR ARCHITECT/DESIGN MANAGER COVID-19 Exposure Response Date Recorded In the last 10 days, have trudy oh been in contact with someone who was confirmed or suspected to have Coronavirus/COVID-19? No / Unsure 11/09/2021 5:31 AM CDT documented as of this encounter Last Filed Vital Signs Vital Sign Reading Time Taken Comments Blood Pressure 159/89 11/09/2021 9:45 AM CDT Pulse 66 11/09/2021 9:45 AM CDT Temperature 36.2 ??C (97.2 ??F) 11/09/2021 9:45 AM CD T Respiratory Rate 20 11/09/2021 9:45 AM CDT Oxygen Saturation 95% 11/09/2021 9:45 AM CDT Inhaled Oxygen Concentration - - Weight 87.5 kg (192 lb 14.4 oz) 11/09/2021 6:26 AM CDT Height - - Body Mass Index 29.33 10/29/2021 11:20 AM SENIOR ARCHITECT/DESIGN MANAGER documented in this encounter Discharge Instructions * Discharge Instructions* Nga Julio RN - 11/09/2021 8:41 AM CDT Your urine may be bloody, this will clear up over the next few days. You may resume your blood thinner after the kumari catheter is removed. Keep the kumari bag below waist level and empty bag when half full If no urine is draining from your catheter call Dr Bailey's office, if after hours go to the ER Because you had anesthesia, we suggest these [...] you have chest pain, shortness of breath, calf pain, excessive bleeding or drainage, if you cannot hold down anything to eat or drink, or if you cannot urinate, please call 911 or go to the nearest emergency room. If you have fever, pain not controlled by your medication, signs of infection such as redness or discharge or swelling at the site, or any other questions or concerns, please call your surgeon. * Attachments The following attachments cannot be sent through Care Everywhere. * Kumari Catheter, Male (Greek) * How to Care for Your Kumari Catheter, Male (Greek) * General Anesthesia Discharge Instructions (Greek) * Cystoscopy Discharge Instructions (Greek) documented in this encounter Medications at Time of Discharge acetaminophen 500 MG tablet Take 500 mg by mouth every 6 (six) hours as needed for Pain. albuterol sulfate HFA 108 (90 Base) MCG/ACT inhaler Inhale 2 puffs into the lungs every 6 (six) hours as needed for Wheezing. carvedilol 25 MG tablet Take 25 mg by mouth daily. In am 50 mg at hs carvedilol 25 MG tablet Take 50 mg by mouth nightly. cetirizine 10 MG chewable tablet Chew 10 mg by mouth nightly. cilostazol 100 MG tablet Take 100 mg by mouth 2 (two) times daily. 10/22/2021 doxepin 25 MG capsule Take 25 mg by mouth nightly at bedtime. Dupilumab (EvolveMol) 300 MG/2ML Solution Pen-injector Inject 1 Application [...] by mouth daily. When he takes lasix tamsulosin 0.4 MG Cap Take 0.8 mg [...] the lungs 2 (two) times daily. 10/06/2021 atorvastatin 40 MG tablet Take 40 mg by mouth nightly at bedtime. 2 oxyCODONE immediate release 5 MG immediate release tabletIndication s:Acute Pain < 3 Day Supply Take 1 tablet (5 mg total) by mouth every 6 (six) hours as needed. Indications: Acute Pain < 3 Day Supply 12 tablet 11/09/2021 2 polyethylene glycol packet Take 1 packet (17 g total) by mouth daily for 7 days. Dissolve powder in 240 mL water 7 packet 11/09/2021 2 documented as of this encounter H&P Notes * Kofi Bailey MD - 11/09/2021 7:26 AM CDT Images from the original note were not included. Urologic Surgery Inpatient Consult Note Encounter Date: 11/08/2021 Patient Name: Freddy Hill Chief Complaint: Urethral Stricture Gross Hematuria Planned Procedure: Cystoscopy, DVIU History of Present Illness: Mr. Hill is a 71-year-old male who presents for the above procedure today. In brief, patient had a gross hematuria and urinary retention event 06/2021 at [facility] when he was diagnosed with an Empyema. He went into retention s/p Thoracotomy at [facility] -- he reports he has multiple prior events of post-op retention. Dr. Grubbs attempted cystoscopy for single episode of hematuria, but was unable to pass scope beyond penile urethral stricture. Patient was planned for a DVIU previously, but hadn't held his Plavix. He had a CT scan at [facility] done without contrast (patient states he has baseline renal insufficiency). Scan shows non-obstructing kidney stones and some hyperdense cysts. No definite renal mass. Bladder could not be seen due to hip replacements. Past Medical History: Diagnosis Date ??? Anemia ??? Anesthesia after hip surgery was in hospital for a week after to get kidneys functioning again. ??? Arthritis ??? AV block ??? Carotid artery stenosis s/p right CEA 2013 ??? Chronic kidney disease (CKD), stage III (moderate) (CMS/HCC) ??? Claudication (CMS/HCC) ??? COPD (chronic obstructive pulmonary disease) (CMS/HCC) ??? Kumari catheter in place ??? GERD (gastroesophageal reflux disease) ??? Gross hematuria ??? HLD (hyperlipidemia) was a smoker 40 years, Started on atorvastatin after carotid artery surgery. Denies High Cholestrol ??? Hypertension ??? Iliac aneurysm (CMS/HCC) x 3 stents ??? ANDRZEJ (obstructive sleep apnea) ??? Oxygen desaturation during sleep wears 2 liters at night ??? Pacemaker medtronic ??? PAD (peripheral artery disease) (CMS/HCC) ??? PNA (pneumonia) 05/2021 ??? PONV (postoperative nausea and vomiting) ??? PVD (peripheral vascular disease) (CMS/HCC) Past Surgical History: Procedure Laterality Date ??? ANESTH, LIMB ARTERIOGRAM.... Left with stents x 3 ??? CAROTID ENDARTERECTOMY Right 2013 ??? COLONOSCOPY ??? FEMUR FRACTURE SURGERY with hardware ??? HIP ARTHROPLASTY Bilateral and 1 revision ??? PACEMAKER 2019 ??? SINUS SURGERY for sleep apnea ??? THORACOTOMY 05/2021 at [facility] Social History Socioeconomic History ??? Marital status: Legally Spouse name: Not on file ??? Number of children: Not on file ??? Years of education: Not on file ??? Highest education level: Not on file Occupational History ??? Not on file Tobacco Use ??? Smoking status: Former Smoker Packs/day: 2.00 Years: 40.00 Pack years: 80.00 Types: Cigarettes Quit date: 2010 Years since quittin.2 ??? Smokeless tobacco: Never Used Substance and Sexual Activity ??? Alcohol use: Not Currently ??? Drug use: Not Currently ??? Sexual activity: Not on file Other Topics Concern ??? Not on file Social History Narrative ??? Not on file Social Determinants of Health Financial Resource Strain: Not on file Food Insecurity: Not on file Transportation Needs: Not on file Physical Activity: Not on file Stress: Not on file Social Connections: Not on file Intimate Partner Violence: Not on file Family History Problem Relation Name Age of [...] output data in the 24 hours ending 11/08/21 1129 Physical Examination: General: Patient is alert and [...] KETONESU, BILIRUBINU, BLOODUR, UROBILINOGUR, NITRITEU, LEUKESTUR Imaging: Per HPI Assessment: Urethral Stricture Gross Hemautria Recommendations: 1. To OR for Cystoscopy, possible DVIU 2. R/B/A discussed, and patient agrees to proceed -------- Kofi Bailey M.D. [facility] documented in this encounter OR Notes * Op Note - Kofi Bailey MD - 11/09/2021 8:20 AM CDT Prior to the operation and informed consent was obtained. The patient was brought back to the operative suite and a detail timeout was performed. General anesthesia was induced without complication. The patient was administered IV antibiotics in the prophylactic form. The patient was positioned in the dorsal lithotomy position with close attention to all pressure points and was prepped and drapedin sterile fashion. We began the case using a 16Fr Flexible cystoscope which easily passed all the way into the bladder-- there were no bladder tumors, but penile urethra notable for dilated glands of Littre as well ashaving a pale urethral mucosa throughout. His prostate is about 30cc with lateral lobe coaptation, no median lobe. His ureteral orifices were orthotopic with clear efflux of urine. Because he urethra was patent enough for the flexible cystoscopy, I felt he only needed a distal urethral dilation -- as such, I used male urethral sounds and began dilating the distal urethra, starting with 14Fr (passed easily), then 16 Fr (which was difficult to pass) and when I attempted to [id number] dilator, it felt as if it was getting caught on a lip of tissue/scar in the distal urethra. I re-inserted the flexible cystoscope and could now better appreciate the annual scar in the distalpenile urethra -- it is 5-10mm in length, moderately dense, and about 20-30mm proximal to the meatus. Using a sensor wire, I passed a wire beyond the scar into the bladder before proceeding with distalpenile DVIU. With a 21Fr Rigid scope, zero-degree lens, and a cold knife, I made a 12 o'clock incision into the dorsal aspect of the distal penile urethra's scar -- there was supple, vascularized, tissue, proximal and distal to the incision, and the scar sprang open satisfactorily. The spongiosum tissue behind the scar appeared healthy and vascularized. With the scar open, I placed a 20Fr Wilton-tipped kumari catheter over our sensor wire, and it passed with constant, mild, pressure and back-tension on the wire -- and filled the balloon with 10cc sterile water. I irrigated the kumari with sterile water and it was light pink without clots or tissue. Patient tolerated the procedure well and all counts were correct at the conclusion of the case PLAN: -PACU, home with kumari, stat lock, leg bag, and bedside bag -Voiding trial in 3-5 days post-op -RTC 6-[address] Strope for symptom check -- will consider urine- flow study to monitor flow rates post-op for a future comparison if his LUTS worsens -In discussions with the patient, he is aware that recurrence is a real possibility with this scar,and he may need a formal reconstruction * Brief Op Note - Kofi Bailey MD - 11/09/2021 8:16 AM CDT Images from the original note were not included. BRIEF OPERATIVE REPORT SURGEON: Kofi Bailey MD SURGICAL TEAM: Surgeon(s) and Role: * Kofi Bailey MD - Primary DATE OF SURGERY : 11/09/2021 PREOPERATIVE DIAGNOSIS: GROSS HEMATURIA AND URINARY RETENTION R31.0, R33.9 POSTOPERATIVE DIAGNOSIS: Urethral Stricture PROCEDURE: #1) Direct vision internal urethrotomy #2) Dilation of male urethral stricture, initial #3) Dilation of male urethral stricture, subsequent #4) Complex kumari placement FINDINGS: 16Fr Flexible cystoscope easily passed -- no bladder tumors, but penile urethra notable for dilatedglands of Littre Began dilating distal urethra and unable to pass 18Fr dilator, so proceeded with distal penile DVIU 20Fr Wilton-tipped kumari catheter placed over a wire SPECIMENS: * No orders in the log * ESTIMATED BLOOD LOSS: <10 cc DRAINS: None ANESTHESIA: MAC COMPLICATIONS: None KOFI BAILEY MD Date: 11/09/2021 Time: 8:16 AM * OR PreOp - NICCI Johnson - 11/04/2021 11:41 AM CDT Patient's chart initially reviewed 10/26/21 but rescheduled 2/2 inadequate anticoagulation instructions for surgeon. Initial note with activity tolerance and cardiac testing copied. Chart reviewed. Per phone interview, patient states he can climb 2 FOS without CP/extreme SOB but would have some SOB 2/2 COPD. Denies recent changes in activity tolerance in past 6 months. Patient sees electrical intern Dr. Lay and previous cardiac testing copied. Previous EKG available in Care Everywhere and additional testing recently requested, now in Media. Cardiac clearance and anticoagulation instructions were also initially requested and received. However, per note, patient had stopped bothPlavix and Eliquis x5 days prior to surgery (which is contraindicating to electrical intern orders) and was cx DOS by surgeon because he wanted patient off of Plavix longer. Patient now tells RN that his electrical intern instructed him to hold DAPT x7 days. Please verify instructions with surgeon and electrical intern offices. Patient does not need COVID testing prior to surgery, he/she has completed their COVID vaccine series more than 14 days prior to surgery date. Immunization records in [facility]. ?? Cardiac clearance per Dr. Lay. Intermediate risk. ?? Pacemaker interrogated 08/12/21: Office pacemaker evaluation demonstrated appropriate device function. Battery function-2.98V, 6.2 years remaining battery life to HERMELINDO. Presenting rhythm-ASVP. Underlying rhythm-SR with First Degree AV Block. OK interval 240 ms. AP-2.5%, SOCIAL MEDIA COORDINATOR-99%. 15 mode switch episodes recorded, iegm's Afib/Aflutter, longest episode 30 min to 1 hour. No Ventricular high rate episodes noted. Medications; Eliquis, Plavix. Atrial amplitude decreased to 1.5V. Ventricular amplitude decreased to 2.0V and PW increased to 1.0 ms. ? EKG 06/11/21 Atrial-sensed ventricular-paced rhythm (see lead 111) Nonspecific ST segment abnormalities consistent with ischemia,metabolic abnormalities,drugs,etc. No previous ECGs available Rate 83 * OR PreOp - Hanny Dominguez RN - 11/04/2021 10:32 AM CDT PATIENT CAN CLIMB 2 FLIGHTS OF STAIRS WITHOUT CP OR EXTREME SOB. Yes, although SOB due to COPD ACTIVITY TOLERANCE IS THE SAME 6 MONTHS AGO. Limited due to urinary catheter. DENIES CARDIAC TESTING. Dr Lay is electrical intern. AVERAGE BLOOD PRESSURE? Runs 130/88 Was instructed to stop plavix and eliquis 7 days per instructions from Dr Lay (per pt). Indicates that he was previously scheduled for this procedure but was canceled because he had not held his anticoagulants long enough. Fully vaccinated and boostered for covid-19. June 2020 had covid. Upon review of notes from MARY Bales 10/27/21, when pt previously scheduled- instructions from Electric Truck Driver indicated pt is to hold Plavix 5 days, and Eliquis 2 days. Called Kaylyn at Dr Bailey's office who confirms that this is accurate (pt to hold Plavix 5 days, and Eliquis 2 days). She denies having told pt to hold his medications each for 7 days- and she will callpt to reinforce instructions. Contacted pt to follow up. Pt indicates that he did receive call from Kaylyn at Dr Bailey office. He received her instructions. Reinforced instructions to pt. He will restart back on his Eliquis (Stopping 11/06). Pt had stopped his Plavix 11/01/21. Dr Bailey is aware and does not want pt to restart, as this is now 5 days out from surgery (per Kaylyn at Dr Bailey's office). Notified pacemaker rep of upcoming surgery. documented in this encounter Plan of Treatment Not on file documented as of this encounter Procedures Procedure Name Priority Date/Time Associated Diagnosis Comments CYSTOSCOPY URETHRAL DILATATION INSERTION CATHETER 11/09/2021 7:29 AM CDT GROSS HEMATURIA AND URINARY RETENTION R31.0, R33.9 Case Notes SCHED BY FAX ON 11/03/21 [facility] PHONE ASSESS documented in this encounter Visit Diagnoses Diagnosis Gross hematuria- Primary Urinary retention Retention of urine, unspecified documented in this encounter Administered Medications Inactive Administered Medications - up to 3 most recent administrations Medication Order MAR Action Action Date Dose Rate Site famotidine (PEPCID) injection 20 mg 20 mg, Intravenous, Once, 1 dose, On 11/09/21 at 0715, On admission IV Push over 2 minutes, Pre-Op Given 11/09/2021 6:51 AM CDT 20 mg lactated ringers infusion at 10 mL/hr, Intravenous, Continuous, Starting on Tue11/09/21 at 0645, Until Tue11/09/21 at 1208, Infuse at TKO rate,Please do not start LR if patient has diagnosis of End stage renal disease, Pre-Op New Bag 11/09/2021 7:20 AM CDT ondansetron (ZOFRAN) injection 4 mg 4 mg, Intravenous, Once, 1 dose, On Tue11/09/21 at 0715, On admission, Pre-Op Given 11/09/2021 6:50 AM CDT 4 mg oxyCODONE immediate release (ROXICODONE) tablet 5 mg 5 mg, Oral, Once as needed, Other, Mild pain (Scale 1 - 3), 1 dose, Starting on Tue11/09/21 at 0808, Until Tue11/09/21 at 0824, Do not administer if patient is overly sedated, SpO2 LESS than 90%, or Respiratory Rate LESS than 12., PACU Given 11/09/2021 8:24 AM CDT 5 mg documented in this encounter Active and Recently Administered Medications Times are shown in CDT. Scheduled Medication Order 11/07/2021 11/08/2021 11/09/2021 ceFAZolin (ANCEF) 2 g in NS 100 mL IVPB (COMPLETED) 2 g, Intravenous, at 200 mL/hr, call specialist to O.R., 1 dose, First dose on Tue11/09/21 at 0600, Pre-Op 0735 (Given - Provid er: Margie Cain CRNA)0750 (Infusion Stop Time - Provider: Margie Cain CRNA)0801 (Anesthesia Volume Adjustment - Provider: Margie Cain CRNA) famotidine (PEPCID) injection 20 mg (COMPLETED) 20 mg, Intravenous, Once, 1 dose, On Tue11/09/21 at 0715, On admission IV Push over 2 minutes, Pre-Op 0651 (Given - Provid er: Ivy Smith, MARY) ondansetron (ZOFRAN) injection 4 mg (COMPLETED) 4 mg, Intravenous, Once, 1 dose, On Tue11/09/21 at 0715, On admission, Pre-Op 0650 (Given - Provid er: Ivy Smith, MARY) Continuous Medication Order 11/07/2021 11/08/2021 11/09/2021 lactated ringers infusion at 10 mL/hr, Intravenous, Continuous, Starting on Tue11/09/21 at 0645, Until Tue11/09/21 at 1208, Infuse at TKO rate,Please do not start LR if patient has diagnosis of End stage renal disease, Pre-Op 0720 (New Bag - Prov ider: Margie Cain CRNA)0801 (Anesthesia Volume Adjustment - Provider: Margie Cain CRNA) PRN Medication Order 11/07/2021 11/08/2021 11/09/2021 oxyCODONE immediate release (ROXICODONE) tablet 5 mg (COMPLETED) 5 mg, Oral, Once as needed, Other, Mild pain (Scale 1 - 3), 1 dose, Starting on Tue11/09/21 at 0808, Until Tue11/09/21 at 0824, Do not administer if patient is overly sedated, SpO2 LESS than 90%, or Respiratory Rate LESS than 12., PACU 0824 (Given - Provid er: José Bryan RN) documented in this encounter Care Teams Slots Manager Relationship Specialty Start Date End Date Ross Espinosa MD [address] [place] [id number] PCP - General INTERNAL MEDICINE 10/29/21 03/29/22 documented as of this encounter
--- OUTSIDE RECORDS SUMMARY | 2024-09-12 15:30 | XMS_ITS | Encounter Summary ---
Author Organization [facility] - [facility] Address [address] [place] [address]. [place], [place] [id number] [place] [address] Care Team Providers Care Crop Farmers Name Role Phone Ranulfo Romo DO Primary Care Provider [phone] Josiah Lay MD Unavailable Daniela Hilario [facility] Unavailable + [phone] Encounter Details Date Type Department Care Team (Late st Contact Info) Description 04/05/2022 [facility] Patient Accounts [address] [place] [address] [facility] Provider Auto Pay Payment Plan Social History Tobacco Use Types Packs/Day Years Used Date Smoking Tobacco: Former Cigarettes 2 40 1 0 - 2009 Smokeless Tobacco: Never Alcohol Use Standard Drinks/Week Comments Not Currently 0 (1 standard drink = 0.6 oz pur e alcohol) Sex and Gender Information Value Date Recorded Sex Assigned at Not on file Legal Sex Male 3:43 PM MERCHANT TAILOR Gender Identity Male 10/27/2021 1:50 PM MERCHANT TAILOR Sexual Orientation Straight 10/27/2021 1: 50 PM MERCHANT TAILOR documented as of this encounter Plan of Treatment Not on file documented as of this encounter Visit Diagnoses Not on filedocumented in this encounter Care Teams Crop Farmers Relationship Specialty Start Date End Date Ranulfo Romo DO [address] [facility] [address] [place] [address] [place] [address] PCP - General FAMILY PRACTICE 03/30/22 Josiah Lay MD [address] [place] [address] CARDIOVASCULAR DISEASE 03/30/22 Daniela Hilario, [facility]- [address] [facility] [address] [place] [phone] Nurse Practitioner Family 03/30/22 documented as of this encounter
--- OUTSIDE RECORDS SUMMARY | 2024-09-12 15:30 | XMS_ITS | Encounter Summary ---
Author Organization [facility] Address [address] [place] [address]. [place], [place] [address] [place] [address] Care Team Providers Care Four Slide Machine Setter Name Role Phone Ranulfo Romo DO Primary Care Provider [phone] Josiah Lay MD Unavailable Daniela Hilario [facility] Unavailable + [phone] Reason for Visit * Auth/Cert Specialty Diagnoses / Procedures Referred By Jovany carver Referred To Contact Diagnoses URETHRAL STRICTURE IN MALE N35.919, N39.0, N45.2 Procedures CYSTOSCOPY WITH COLD KNIFE DIRECT VISION INTERNAL URETHROTOMY Ranulfo Mcpherson MD 3 [place] [address] Phone: tel: fax: Referral ID Status Reason Start Date Expiration Date Visits Re quested Visits Authorized [id number] 1 1 Encounter Details Date Type Department Care Team (Late st Contact Info) Description 05/10/2022 2:44 PM CDT Anesthesia Event [facility] OR [address] [place], [place] [id number] Sarabjit Adorno MD [address] [facility] [address] [place], [place] [address] Sury Torres, CONDITIONING ROOM WORKER [address] [place], [place] [id number] Anesthesia Record Procedure Summary Procedure Name Responsible Anesthesiologist Anesthesia Start Time Anesthesia Stop Time CYSTOSCOPY WITH COLD KNIFE DIRECT VISION INTERNAL URETHROTOMY (Urethra) Sarabjit Adorno MD 05/10/22 1444 05/10/22 1526 Events Date Time Event Comment 05/10/2022 1107 1107 AN Anesthesia Prepped 1444 An Start Data 1444 An Start Patient ID and consent checked and patient reassessed. 1448 Preoxygenation 1451 An Induction The patient was reevaluated immediately before moderate or deep sedation use and before anesthesia induction. 1455 An LMA 1457 Anesthesia Ready 1520 An Emergence 1520 LMA Removed 1522 Face Mask Applied 1526 Post Anesthetic Care Handoff I completed my handoff to the receiving nurse during which we: 1. Identified the patient 2. Identified the responsible provider 3. Reviewed the pertinent medical history 4. Discussed the surgical course 5. Reviewed intra-op anesthesia management and issues during anesthesia 6. Set expectations for post-procedure period 7. Allowed opportunity for questions and acknowledgement of understanding. 1526 An Stop 1527 an stop data Meds Name Total ceFAZolin (ANCEF) 2 g in NS 100 mL IVPB 2 g lidocaine (PF) (XYLOCAINE) 2% injection 60 mg propofol (DIPRIVAN) 200 mg/20 mL injecti on 100 mg fentaNYL (SUBLIMAZE) 100 mcg/2 mL inject ion 100 mcg lactated ringers infusion 450 mL * Agents Name O2 N2O Air Inspired Sevoflurane Sevoflurane * Blood No blood administrations on file. Lines, Drains, and Airways Type Details Placement Removal London Catheter 11/09/21; 0755; No; Obstruction - Urinary retention/Bladder outlet obstruction; 1; Hand hygiene performed, Site cleansed with sterile antiseptic, Sterile gloves, drape and lubricant used, Catheter inserted using aseptic technique, London care post catheter insertion, Anchoring device applied, Drainage bag secured below level of bladder, Closed system maintained; Stat lock; Latex; 20 Fr. 11/09/21 0755 by Chloe Chase RN Peripheral IV Placement Date: 05/10/22; Placement Time: 1048; Placed Outside of This Facility?: No; Size: 18 G; Orientation: Right; Location: Antecubital; Site Prep: Chlorhexidine; Local Anesthetic: None; Insertion attempts: 1; Ultrasound-guided Placement?: No; Patient Tolerance: Tolerated well 05/10/22 1048 by Rosibel Archer, MARY London Catheter 05/10/22; 1516; Urol ogic Surgical intervention - Bladder, Prostate, NURSING COORDINATOR procedures; 1; Hand hygiene performed, Site cleansed with sterile antiseptic, Sterile gloves, drape and lubricant used, Catheter inserted using aseptic technique, Anchoring device applied, London care post catheter insertion, Drainage bag secured below level of bladder, Closed system maintained; Stat lock; Double-lumen, Latex; 20 Fr. 05/10/22 1516 by Alexandrea Bray, MARY Supraglottic Airway Placement Date: 05/10/22; Placement Time: 1455; Airway Device: LMA; LMA Size: 5; Placed Outside of This Facility?: No; Placed By: ELVA; Style: Other; Insertion Attempts:2 (1st attempt lma 4); Breath Sounds:Clear bilaterally, Equal bilaterally; Removal Date: 05/10/22; Removal Time: 1520 05/10/22 1455 by Rasheed Berry CRNA 05/10/22 1520 by Sunny Lopes CRNA Surgical/Incision 05/10/22; 1501; Peni s; 05/10/22; 193505/10/22 1501 by George Astudillo RN 05/10/221935 by Automatic Discharge Provider Surgical/Incision 05/10/22; 1517; Surg ical Wound; Penis; no dressing ; 05/10/22; 193505/10/22 1517 by Alexandrea Bray RN 05/10/22 193 by Automatic Discharge Provider documented in this encounter Social History Tobacco Use Types Packs/Day Years Used Date Smoking Tobacco: Former Cigarettes 2 40 1 970 - 2009 Smokeless Tobacco: Never Alcohol Use Standard Drinks/Week Comments Not Currently 0 (1 standard drink = 0.6 oz pur e alcohol) Sex and Gender Information Value Date Recorded Sex Assigned at Not on file Legal Sex Male 3:43 PM MANAGER PROGRAMS Gender Identity Male 10/27/2021 1:50 PM MANAGER PROGRAMS Sexual Orientation Straight 10/27/2021 1: 50 PM MANAGER PROGRAMS COVID-19 Exposure Response Date Recorded In the last 10 days, have yo u been in contact with someone who was confirmed or suspected to have Coronavirus/COVID-19? No / Unsure 05/10/2022 10:07 AM CDT documented as of this encounter OR Notes * Anesthesia Postprocedure Evaluation - Sarabjit Adorno MD - 05/10/2022 5:16 PM CDT Anesthesia Post-op Note Freddy Sergio Procedure(s): CYSTOSCOPY WITH COLD KNIFE DIRECT VISION INTERNAL URETHROTOMY (N/A Urethra) Anesthesia type: general Vitals: 05/10/22 1715 BP: (!) 140/79 Vitals: 05/10/22 1715 Pulse: 76 Vitals: 05/10/22 1715 Resp: 16 Vitals: 05/10/22 171 Temp: 36.4 ??C Vitals: 05/10/22 171 SpO2: 95% Patient Location: Phase II/Outpatient Level of Consciousness: awake Pain Management: adequate analgesia Airway Patency: patent Respiratory Status: acceptable Cardiovascular Status: acceptable Post-Op Nausea: none Postoperative Hydration: euvolemic Encounter Complications Complication Outcome Phase Comment None Intraprocedure No known anesthesia related complications. * Anesthesia Postprocedure Evaluation - Sarabjit Adorno MD - 05/10/2022 3:58 PM CDT Anesthesia Post-op Note Freddy Sergio Procedure(s): CYSTOSCOPY WITH COLD KNIFE DIRECT VISION INTERNAL URETHROTOMY (N/A Urethra) Anesthesia type: general Vitals: 05/10/22 1618 BP: (!) 165/80 Vitals: 05/10/22 1628 Pulse: 69 Vitals: 05/10/22 1628 Resp: 21 Vitals: 05/10/22 1525 Temp: 37.4 ??C Vitals: 05/10/22 1628 SpO2: 96% Patient Location: PACU Level of Consciousness: awake Pain Management: adequate analgesia Airway Patency: patent Respiratory Status: acceptable Cardiovascular Status: acceptable Post-Op Nausea: none Postoperative Hydration: euvolemic No complications documented. * Anesthesia Preprocedure Evaluation - Sarabjit Adorno MD - 05/10/2022 9:47 AM CDT Anesthesia ROS/MED History Reviewed: Patient summary , ECG, Family history anesthesia, Anesthesia history , Medications , Labs , Images/Studies , Unchecked boxes are not applicable Pre-Anesthetic State: alert, awake and responds appropriately history of anesthetic complications, (PONV) Pulmonary (+) COPD, smoker ROS comment: Hospitalization for COPD exacerbation 2 months ago doing well since that time denies any increase in SOB/dyspnea since that time. Cardiovascular (+) pacemaker, hypertension, Peripheral vascular disease, hyperlipidemia ROS comment: Denies any recent episodes of chest pain . Neuro/Psych GI/Hepatic/Renal (+) GERD, renal disease, (CRI) Endo/Other (+) blood dyscrasia, (Anticoagulation) GENERAL COMMENTS No Known Allergies Past Medical History: No date: Anemia Comment: 2/2 blood thinners No date: Anesthesia Comment: after hip surgery was in hospital for a week after to get kidneys functioning again. No date: Arthritis No date: AV block No date: Carotid artery stenosis Comment: s/p right CEA 2013 No date: Chronic kidney disease (CKD), stage III (moderate) ([facility]) No date: Claudication ([facility]) No date: COPD (chronic obstructive pulmonary disease) ([facility]) No date: GERD (gastroesophageal reflux disease) No date: Gross hematuria No date: HLD (hyperlipidemia) Comment: was a smoker 40 years, Started on atorvastatin after carotid artery surgery. 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 No date: ANDRZEJ (obstructive sleep apnea) Comment: no cpap No date: Oxygen desaturation during sleep Comment: wears 2 liters at night No date: Pacemaker Comment: medtronic No date: PAD (peripheral artery disease) ([facility]) 05/2021: PNA (pneumonia) No date: PONV (postoperative nausea and vomiting) No date: PVD (peripheral vascular disease) ([facility]) No date: Urethral stricture Past Surgical History: No date: ANESTH, LIMB ARTERIOGRAM....; Left Comment: with stents x 3 2014: CAROTID ENDARTERECTOMY; Right No date: COLONOSCOPY 10/2021: CYSTOSCOPY No date: FEMUR FRACTURE SURGERY; Right Comment: with hardware No date: HERNIA REPAIR No date: HIP ARTHROPLASTY; Bilateral Comment: and 1 revision 2019: PACEMAKER No date: SINUS SURGERY Comment: for sleep apnea 05/2021: THORACOTOMY Comment: at [facility] Stress test 04/08/[address] changes. Left ventricular ejection fraction is 41 %. There is mild to moderate LV dysfunction. There is dyskinesis in the basal inferoseptal segment and basal inferior segment. Myocardial perfusion imaging is abnormal fixed mid inferior defect and basal inferior and basal inferoseptal alethea-infarct ischemia. Recommend follow up with manager cargo. ?? Original Note: Chart reviewed. ??Per phone interview, patient states he would be very SOB with 1 FOS, denies CP. Activity tolerance worse over 6 months 2/2 congestion.??Patient sees manager cargo Dr. Lay??and previous cardiac testing copied. ?? Hx PONV ?? Pt currently taking Cipro for respiratory infection through 04/08/22, will need to postpone surgery until antibiotic course is finished and symptoms have resolved.? Per Dr. Lay pt may hold Plavix 5 days and Xarelto 3 days. Please request cardiac clearance (level of risk not filled out on instruction sheet). ?? Pacemaker interrogation 02/17/22 Medtronic [place] Dual Pacemaker. Dx; Second Degree AVB, Symptomatic Bradycardia. DOI 05/02/2019-Dr Zenia Good ([place]). Carelink remote. Routine Pacemaker remote. Normal device function. Battery function-2,99V, 7.7 years remaining battery life to HERMELINDO. Appropriate lead measurements. Presenting rhythm-ASVP. AP-7%, ACOUSTIC WARFARE ANALYST-100%. ?? EKG 06/11/21 Atrial-sensed ventricular-paced rhythm (see lead 111) Nonspecific ST segment abnormalities consistent with ischemia,metabolic abnormalities,drugs,etc. No previous ECGs available Rate 83 ?? EKG??05/13/21 -sinus rhythm, left bundle-branch block.?? Cardiac cath 03/03/22 Severe, calcific PAD- A) [...] with mild ISR; three-vessel left runoff. ?? Echo??11/24/21 -Normal left ventricular size. Definity contrast agent [...] of 1.79 cm2. Aortic cusps appear mildly sclerotic.?? SULEMA 03/19/22 1. The above listed right [...] DANIEL is >0.6). Venous duplex 07/17/21-no DVT Physical Evaluation Airway Mallampati: III TM Distance: >3 FB Neck ROM: normal Dental Pulmonary (+) decreased breath sounds, (diminished bilaterally) Cardiovascular Rhythm: regular Rate: normal Cardiovascular exam normal Other findings: There were no vitals taken for this visit. No results for input(s): WBC, RBC, HGB, HCT, PLT, NA, K, CL, CO2, AGAP, BUN, CR, BUNCREATININ, GFRNON, GFR, GLU, CA in the last 72 hours. Anesthesia Plan ASA 3 Intravenous Induction Anesthesia type: general Plan for Airway: LMA Plan for Post-op Pain Plan: as per surgeon, oral pain medication and IV analgesics Discussed potential risks of General Anesthesia including but not limited to corneal abrasion, visual impairment or visual loss, mouth injury, dental damage, sore throat, hoarseness, esophageal injury, awareness under anesthesia, nerve injury due to positioning, aspiration, pneumonia, stroke, cardiac event, adverse drug reactions and . Due to multiple co morbid conditions he is higher risk and this was discussed. Cardiology deemed him intermediate risk from their standpoint. He does state that since his hospitalization for copd exacerbation 2 months ago he is doing well, and is at his baseline. Informed Consent Anesthetic plan and risks discussed with patient of whom consent was obtained. . documented in this encounter Plan of Treatment Not on file documented as of this encounter Visit Diagnoses Not on filedocumented in this encounter Administered Medications Inactive Administered Medications - up to 3 most recent administrations Medication Order MAR Action Action Date Dose Rate Site ceFAZolin (ANCEF) 2 g in NS 100 mL IVPB 2 g, Intravenous, at 200 mL/hr, call worker person to O.R., 1 dose, First dose on Tue05/10/22 at 1045, Pre-OpIndications:Urethral stricture in male Given 05/10/2022 2:56 PM CDT 2 g fentaNYL (SUBLIMAZE) injection Intravenous, PRN, Starting on Tue05/10/22 at 1500, Until Tue05/10/22 at 1526, Anesthesia Intra-Op Given 05/10/2022 3:14 PM CDT 50 mcg Given 05/10/2022 3:12 PM CDT 25 mcg Given 05/10/2022 3:00 PM CDT 25 mcg lactated ringers infusion at 10 mL/hr, Intravenous, Continuous, Starting on Tue05/10/22 at 1045, Until Tue05/10/22 at 1941, Infuse at TKO rate, Pre-Op New Bag 05/10/2022 2:45 PM CDT lidocaine (PF) (XYLOCAINE) 2 % injection Intravenous, PRN, Starting on Tue05/10/22 at 1451, Until Tue05/10/22 at 1526, Anesthesia Intra-Op Given 05/10/2022 2:51 PM CDT 60 mg propofol (DIPRIVAN) IV bolus Intravenous, PRN, Starting on Tue05/10/22 at 1451, Until Tue05/10/22 at 1526, Anesthesia Intra-Op Given 05/10/2022 2:53 PM CDT 30 mg Given 05/10/2022 2:51 PM CDT 70 mg documented in this encounter Care Teams Four Slide Machine Setter Relationship Specialty Start Date End Date Ranulfo Romo DO [address] [facility] [address] [place] [address] [place] [address] PCP - General FAMILY PRACTICE 03/30/22 Josiah Lay MD [address] [facility] [address] [facility] [address] [place] [address] CARDIOVASCULAR DISEASE 03/30/22 Daniela Hilario, [facility]- [address] [facility] [address] [place] [address] Nurse Practitioner Family 03/30/22 documented as of this encounter
--- OUTSIDE RECORDS SUMMARY | 2024-09-12 15:30 | XMS_ITS | Encounter Summary ---
Author Organization [facility] Address [address] [place] [address]. [place], [place] [address] [place] [address] Care Team Providers Care Multicultural Services Librarian Name Role Phone Ranulfo Romo DO Primary Care Provider [phone] Josiah Lay MD Unavailable Daniela Hilario [facility] Unavailable +- [phone] Reason for Visit * Auth/Cert Specialty Diagnoses / Procedures Referred By Jovany carver Referred To Contact Diagnoses URETHRAL STRICTURE IN MALE N35.919, N39.0, N45.2 Procedures CYSTOSCOPY WITH COLD KNIFE DIRECT VISION INTERNAL URETHROTOMY Ranulfo Bailey MD 3 [place] [address] Phone: tel: fax: Referral ID Status Reason Start Date Expiration Date Visits Re quested Visits Authorized [id number] 1 1 Encounter Details Date Type Department Care Team (Late st Contact Info) Description 05/10/2022 2:16 PM CDT - 05/10/2022 3:26 PM CDT Surgery [facility] [place] [address] Ranulfo Bailey MD 3 [place], [place] [id number] CYSTOSCOPY WITH COLD KNIFE DIRECT VISION INTERNAL URETHROTOMY Surgery Details Date/Time Status Location OR Service Patient Class Case Class Case Type Trauma Case? 05/10/2022 2:16 PM Posted [facility] OR OR 3 Urology Short Stay/Outpati ent Surgery E - Elective No Panel 1 Procedure LRB Anes Op Region Wound Class Comments CYSTOSCOPY WITH COLD KNIFE D IRECT VISION INTERNAL URETHROTOMY N/A General Urethra Clean Contami nated Surgeon Surgeon Role Service Panel Ranulfo Bailey MD Primary Urology 1 Case Notes SCHED BY FAX ON 03/17/22 LCS PHONE ASSESS documented in this encounter Social History Tobacco Use Types Packs/Day Years Used Date Smoking Tobacco: Former Cigarettes 2 40 1 0 - 2009 Smokeless Tobacco: Never Alcohol Use Standard Drinks/Week Comments Not Currently 0 (1 standard drink = 0.6 oz pur e alcohol) Sex and Gender Information Value Date Recorded Sex Assigned at Not on file Legal Sex Male 3:43 PM SALESPERSON STEREO EQUIPMENT Gender Identity Male 10/27/2021 1:50 PM SALESPERSON STEREO EQUIPMENT Sexual Orientation Straight 10/27/2021 1: 50 PM SALESPERSON STEREO EQUIPMENT COVID-19 Exposure Response Date Recorded In the last 10 days, have yo u been in contact with someone who was confirmed or suspected to have Coronavirus/COVID-19? No / Unsure 05/10/2022 10:07 AM CDT documented as of this encounter Last Filed Vital Signs Vital Sign Reading Time Taken Comments Blood Pressure 153/68 05/10/2022 3:25 PM CDT Pulse 62 05/10/2022 3:25 PM CDT Temperature 37.4 ??C (99.4 ??F) 05/10/2022 3:25 PM CD T Respiratory Rate 25 05/10/2022 3:25 PM CDT Oxygen Saturation 100% 05/10/2022 3:25 PM CDT Inhaled Oxygen Concentration - - [...] to Care for Your Kumari Catheter, Male (Singaporean) * Urethral Dilation (Singaporean) * General Anesthesia Discharge Instructions (Singaporean) documented in this encounter Medications at Time [...] < 3 Day Supply 12 tablet 05/10/2022 documented as of this encounter H&P Notes [...] for sleep apnea ??? THORACOTOMY 05/2021 at [facility] Social History Socioeconomic History ??? [...] on cystoscopy 01/07/2022 - Patient went to [facility] in urinary retention -- failed kumari attempts [...] proceed -------- Ranulfo Bailey M.D. [facility] documented in this encounter Nursing Notes * [...] veru montanum ?? I placed a 20Fr Alvin-tipped kumari catheter over our sensor wire, and [...] cardiac clearance 05/05/[address] Lay in media- intermediate risk Stress test 04/08/[address] changes. Left ventricular ejection fraction is 41 %. There is mild to moderate LV dysfunction. There is dyskinesis in the basal inferoseptal segment and basal inferior segment. Myocardial perfusion imaging is abnormal fixed mid inferior defect and basal inferior and basal inferoseptal alethea-infarct ischemia. Recommend follow up with cloth sander. Original Note: Chart reviewed. Per phone interview, patient states he would be very SOB with 1 FOS, denies CP. Activity tolerance worse over 6 months 2/2 congestion. Patient sees cloth sander Dr. Lay and previous cardiac testing copied. [...] instruction sheet). ?? Pacemaker interrogation 02/17/22 Medtronic [place] Dual Pacemaker. Dx; Second Degree AVB, Symptomatic Bradycardia. DOI 05/02/2019-Dr Zenia Good ([place]). Carelink remote. Routine Pacemaker remote. Normal device function. Battery function-2,99V, 7.7 years remaining battery life to HERMELINDO. Appropriate lead measurements. Presenting rhythm-ASVP. AP-7%, FIXING CARPENTER-100%. ?? EKG 06/11/21 Atrial-sensed ventricular-paced rhythm (see [...] informed all the above to Kaylyn. 05/05/22 0900Osvaldo Barnes called to see if we received their clearance back (Dr Lay) I informed her the one I have was from before his stress test and needed a new one since he had that- she will talk with cloth sander and fax it ones he sees it and give the ok. I spoke with Kaylyn at Dr Law office- stated pt does need to hold his plavix and Xarelto- I called pt to make sure he is aware- confirmed Xarelto 3 days and Plavix 5 days per cardiology note Ladan at [employer] [employer] informed of surgery documented in this encounter Plan of Treatment Not on file documented as of this encounter Procedures Procedure Name Priority Date/Time Associated Diagnosis Comments CYSTOSCOPY URETHRAL DILATATION INSERTION CATHETER 05/10/2022 2:44 PM CDT URETHRAL STRICTURE IN MALE N35.919, N39.0, N45.2 Case Notes SCHED BY FAX ON 03/17/22 LCS PHONE ASSESS documented in this encounter Visit Diagnoses Not [...] (COMPLETED) 2 g, Intravenous, at 200 mL/hr, lining machine operator to O.R., 1 dose, First dose on Tue05/10/22 at 1045, Pre-Op 1456 (Given - Provid er: Rasheed Berry CRNA)1526 (Infusion Stop Time - Provider: Rasheed Berry CRNA) famotidine (PF) (PEPCID) injection 20 mg (COMPLETED) 20 mg, Intravenous, Once, 1 dose, On Tue05/10/22 at 1045, On admission IV Push over 2 minutes, Pre-Op 1048 (Given - Provid er: Rosibel Archer, MARY) ondansetron (ZOFRAN) injection 4 mg (COMPLETED) [...] RN) documented in this encounter Care Teams Multicultural Services Librarian Relationship Specialty Start Date End Date Ranulfo Romo DO [address] [facility] [address] [address] PCP - General FAMILY PRACTICE 03/30/22 Josiah Lay MD [address] [facility] 162 [facility] [address] [place] [address] CARDIOVASCULAR DISEASE 03/30/22 Daniela Hilario, [facility]- [address] [facility] 15 [place] [address] Nurse Practitioner Family 03/30/22 documented as of this encounter
--- OUTSIDE RECORDS SUMMARY | 2024-09-12 15:30 | XMS_ITS | Encounter Summary ---
Author Organization [facility] Address [address] [place] [address]. [place], [place] [address] [place] [address] Care Team Providers Care Color Room Attendant Name Role Phone Ranulfo Romo DO Primary Care Provider [phone] Josiah Lay MD Unavailable Daniela Hilario [facility] Unavailable + [phone] Encounter Details Date Type Department Care Team (Late st Contact Info) Description 03/31/2022 Scan [facility] Pre[place] [address] Amairani Gurrola, RN Social History Tobacco Use Types Packs/Day Years Used Date Smoking Tobacco: Former Cigarettes 2 40 1 970 - 2009 Smokeless Tobacco: Never Alcohol Use Standard Drinks/Week Comments Not Currently 0 (1 standard drink = 0.6 oz pur e alcohol) Sex and Gender Information Value Date Recorded Sex Assigned at Not on file Legal Sex Male 3:43 PM FASHION PATTERNMAKER Gender Identity Male 10/27/2021 1:50 PM FASHION PATTERNMAKER Sexual Orientation Straight 10/27/2021 1: 50 PM FASHION PATTERNMAKER documented as of this encounter Plan of Treatment Not on file documented as of this encounter Visit Diagnoses Not on filedocumented in this encounter Care Teams Color Room Attendant Relationship Specialty Start Date End Date Ranulfo Romo DO [address] [facility] [address] [place] [address] [place] [address] PCP - General FAMILY PRACTICE 03/30/22 Josiah Lay MD [address] [place] [address] [place] [address] CARDIOVASCULAR DISEASE 03/30/22 Daniela Hilario, [facility]- [address] [facility] [place] [address] [place] [address] Nurse Practitioner Family 03/30/22 documented as of this encounter
--- OUTSIDE RECORDS SUMMARY | 2024-09-12 15:30 | XMS_ITS | Encounter Summary ---
Author Organization [facility] Address [address] [place] [address]. [place], [place] [id number] [place] [address] Care Team Providers Care Bursar Name Role Phone Ross Espinosa MD Primary Care Provider [phone]- [phone] Reason for Visit * Auth/Cert Specialty Diagnoses / Procedures Referred By Jovany carver Referred To Contact Diagnoses GROSS HEMATURIA AND URINARY RETENTION R31.0, R33.9 Procedures CYSTOSCOPY WITH POSSIBLE DIRECT VISION INTERNAL URETHROTOMY Referral ID Status Reason Start Date Expiration Date Visits Re quested Visits Authorized [id number] 1 1 Encounter Details Date Type Department Care Team (Late st Contact Info) Description 11/09/2021 7:30 AM CDT - 11/09/2021 8:39 AM CDT Surgery [facility] [place] [address] Kofi Bailey MD [address] [place] [address] CYSTOSCOPY WITH DIRECT VISION INTERNAL URETHROTOMY, URETHRAL DILATION, COMPLEX CASPER PLACEMENT Surgery Details Date/Time Status Location OR Service Patient Class Case Class Case Type Trauma Case? 11/09/2021 7:30 AM Posted [facility] OR OR 10 Urology Short Stay/Outpat ient Surgery E - Elective No Panel 1 Procedure LRB Anes Op Region Wound Class Comments CYSTOSCOPY WITH DIRECT VISIO N INTERNAL URETHROTOMY, URETHRAL DILATION, COMPLEX CASPER PLACEMENT N/A General Urethra Clean C ontaminated Surgeon Surgeon Role Service Panel Kofi Bailey MD Primary Urology 1 Case Notes SCHED BY FAX ON 11/03/21 [facility] PHONE ASSESS documented in this encounter Social History Tobacco Use Types Packs/Day Years Used Date Smoking Tobacco: Former Cigarettes 2 40 1 2009 Smokeless Tobacco: Never Alcohol Use Standard Drinks/Week Comments Not Currently 0 (1 standard drink = 0.6 oz pur e alcohol) Sex and Gender Information Value Date Recorded Sex Assigned at Not on file Legal Sex Male 3:43 PM SPICE GRINDER Gender Identity Male 10/27/2021 1:50 PM SPICE GRINDER Sexual Orientation Straight 10/27/2021 1: 50 PM SPICE GRINDER COVID-19 Exposure Response Date Recorded In the last 10 days, have yo u been in contact with someone who was confirmed or suspected to have Coronavirus/COVID-19? No / Unsure 11/09/2021 5:31 AM CDT documented as of this encounter Last Filed Vital Signs Vital Sign Reading Time Taken Comments Blood Pressure 178/85 11/09/2021 8:30 AM CDT Pulse 79 11/09/2021 8:30 AM CDT Temperature 36 ??C (96.8 ??F) 11/09/2021 8:11 AM CDT Respiratory Rate 18 11/09/2021 8:30 AM CDT Oxygen Saturation 97% 11/09/2021 8:30 AM CDT Inhaled Oxygen Concentration - - Weight 87.5 kg (192 lb 14.4 oz) 11/09/2021 6:26 AM CDT Height - - Body Mass Index 29.33 10/29/2021 11:20 AM SPICE GRINDER documented in this encounter Discharge Instructions * Discharge Instructions* Nga Julio RN - 11/09/2021 8:41 AM CDT Your urine may be bloody, this will clear up over the next few days. You may resume your blood thinner after the casper catheter is removed. Keep the casper bag below waist level and empty bag [...] cannot be sent through Care Everywhere. * Casper Catheter, Male (Yemeni) * How to Care for Your Casper Catheter, Male (Yemeni) * General Anesthesia Discharge Instructions (Yemeni) * Cystoscopy Discharge Instructions (Yemeni) documented in this encounter Medications at Time [...] hematuria and urinary retention event 06/2021 at [facility] when he was diagnosed with an Empyema. He went into retention s/p Thoracotomy at [facility] -- he reports he has multiple prior events of post-op retention. Dr. Grubbs attempted cystoscopy for single episode of hematuria, but was unable to pass scope beyond penile urethral stricture. Patient was planned for a DVIU previously, but hadn't held his Plavix. He had a CT scan at [facility] done without contrast (patient states he has [...] COPD (chronic obstructive pulmonary disease) (CMS/HCC) ??? Casper catheter in place ??? GERD (gastroesophageal reflux [...] for sleep apnea ??? THORACOTOMY 05/2021 at [facility] Social History Socioeconomic History ??? Marital status: [...] proceed -------- Kofi Bailey M.D. [facility] documented in this encounter OR Notes * [...] to pass) and when I attempted to [id number] dilator, it felt as if it was [...] the scar open, I placed a 20Fr Wink-tipped casper catheter over our sensor wire, and it passed with constant, mild, pressure and back-tension on the wire -- and filled the balloon with 10cc sterile water. I irrigated the casper with sterile water and it was light pink without clots or tissue. Patient tolerated the procedure well and all counts were correct at the conclusion of the case PLAN: -PACU, home with casper, stat lock, leg bag, and bedside bag -Voiding trial in 3-5 days post-op -RTC 6-[address] Grubbs for symptom check -- will consider urine- [...] of male urethral stricture, subsequent #4) Complex casper placement FINDINGS: 16Fr Flexible cystoscope easily passed -- no bladder tumors, but penile urethra notable for dilatedglands of [place] Began dilating distal urethra and unable to pass 18Fr dilator, so proceeded with distal penile DVIU 20Fr Wink-tipped casper catheter placed over a wire SPECIMENS: * [...] tolerance in past 6 months. Patient sees digital camera technician Dr. Lay and previous cardiac testing copied. Previous EKG available in Care Everywhere and additional testing recently requested, now in Media. Cardiac clearance and anticoagulation instructions were also initially requested and received. However, per note, patient had stopped bothPlavix and Eliquis x5 days prior to surgery (which is contraindicating to digital camera technician orders) and was cx DOS by surgeon because he wanted patient off of Plavix longer. Patient now tells RN that his digital camera technician instructed him to hold DAPT x7 days. Please verify instructions with surgeon and digital camera technician offices. Patient does not need COVID testing prior to surgery, he/she has completed their COVID vaccine series more than 14 days prior to surgery date. Immunization records in [employer]. ?? Cardiac clearance per Dr. Lay. Intermediate risk. ?? Pacemaker interrogated 08/12/21: Office pacemaker evaluation demonstrated appropriate device function. Battery function-2.98V, 6.2 years remaining battery life to HERMELINDO. Presenting rhythm-ASVP. Underlying rhythm-SR with First Degree AV Block. NH interval 240 ms. AP-2.5%, PLUMBING ASSEMBLER-99%. 15 mode switch episodes recorded, ie's Afib/Aflutter, longest episode 30 min to 1 [...] catheter. DENIES CARDIAC TESTING. Dr Lay is digital camera technician. AVERAGE BLOOD PRESSURE? Runs 130/88 Was instructed [...] 10/27/21, when pt previously scheduled- instructions from Abstract Checker indicated pt is to hold Plavix 5 [...] R33.9 Case Notes SCHED BY FAX ON 3/15/22 [facility] PHONE ASSESS documented in this encounter Visit [...] (COMPLETED) 2 g, Intravenous, at 200 mL/hr, machine scallop cutter to O.R., 1 dose, First dose on [...] Pre-Op 0650 (Given - Provid er: Ivy Smith RN) Continuous Medication Order 11/07/2021 11/08/2021 11/09/2021 lactated [...] RN) documented in this encounter Care Teams Bursar Relationship Specialty Start Date End Date Ross Espinosa MD [address] [place] [address] PCP - General INTERNAL MEDICINE 10/29/21 03/29/22 documented as of this encounter
--- OUTSIDE RECORDS SUMMARY | 2024-09-12 15:30 | XMS_ITS | Encounter Summary ---
Author Organization [facility] Address [address] [place] [address]. [place], [place] [id number] [place] [address] Care Team Providers Care Locum Tenens Hospitalist Name Role Phone Ranulfo Romo DO Primary Care Provider [phone] Josiah Lay MD Unavailable Daniela Hilario [facility] Unavailable + [phone] Encounter Details Date Type Department Care Team (Latest Contact Info) Description 05/10/2022 Travel Social History Tobacco Use Types Packs/Day Years Used Date Smoking Tobacco: Former Cigarettes 2 40 1 970 - 2009 Smokeless Tobacco: Never Alcohol Use Standard Drinks/Week Comments Not Currently 0 (1 standard drink = 0.6 oz pur e alcohol) Sex and Gender Information Value Date Recorded Sex Assigned at Not on file Legal Sex Male 3:43 PM TYING MACHINE OPERATOR LUMBER Gender Identity Male 10/27/2021 1:50 PM TYING MACHINE OPERATOR LUMBER Sexual Orientation Straight 10/27/2021 1: 50 PM TYING MACHINE OPERATOR LUMBER COVID-19 Exposure Response Date Recorded In the last 10 days, have yo u been in contact with someone who was confirmed or suspected to have Coronavirus/COVID-19? No / Unsure 05/10/2022 10:07 AM CDT documented as of this encounter Plan of Treatment Not on file documented as of this encounter Visit Diagnoses Not on filedocumented in this encounter Care Teams Locum Tenens Hospitalist Relationship Specialty Start Date End Date Ranulfo Romo DO [address] [place] [address] [place] [address] PCP - General FAMILY PRACTICE 03/30/22 Josiah Lay MD [address] [place] [address] CARDIOVASCULAR DISEASE 03/30/22 Daniela Hilario, [facility] [address] [facility] [address] [place] [address] Nurse Practitioner Family 03/30/22 documented as of this encounter
--- OUTSIDE RECORDS SUMMARY | 2024-09-12 15:30 | XMS_ITS | Encounter Summary ---
Author Organization [facility] Address [address] [place] [address]. [place], [place] [address] [place] [address] Care Team Providers Care Brush Worker Name Role Phone Ross Espinosa MD Primary Care Provider [phone]- [phone] Reason for Visit * Auth/Cert Specialty Diagnoses / Procedures Referred By Contac t Referred To Contact Diagnoses GROSS HEMATURIA AND URINARY RETENTION R31.0, R33.9 Procedures CYSTOSCOPY WITH POSSIBLE DIRECT VISION INTERNAL URETHROTOMY Referral ID Status Reason Start Date Expiration Date Visits Re quested Visits Authorized [id number] 1 1 Encounter Details Date Type Department Care Team (Late st Contact Info) Description 11/09/2021 7:29 AM CDT Anesthesia Event [facility] [place] [address] Sarabjit Adorno MD [address] [address] Radha Lopez FNP 1 [place] [address] Anesthesia Record Procedure Summary Procedure Name Responsible Anesthesiologist Anesthesia Start Time Anesthesia Stop Time CYSTOSCOPY WITH DIRECT VISION INTERNAL URETHROTOMY, URETHRAL DILATION, COMPLEX CASPER PLACEMENT (Urethra) Sarabjit Adorno MD 11/09/21 0729 11/09/21 0814 Events Date Time Event Comment 11/09/2021 0646 0646 AN Anesthesia Prepped 0648 AN MIRROR MAKER Prepped 0729 An Start Patient ID and consent checked and patient reassessed. 0729 An Start Data 0733 Face Mask Applied 0733 Anesthesia Ready 0734 An Induction The patient was reevaluated immediately before moderate or deep sedation use and before anesthesia induction. 0803 An Emergence 0809 Face Mask Removed 0809 an stop data 0814 Post Anesthetic Care Handoff I completed my handoff to the receiving nurse during which we: 1. Identified the patient 2. Identified the responsible provider 3. Reviewed the pertinent medical history 4. Discussed the surgical course 5. Reviewed intra-op anesthesia management and issues during anesthesia 6. Set expectations for post-procedure period 7. Allowed opportunity for questions and acknowledgement of understanding. 0814 An Stop Meds Name Total ceFAZolin (ANCEF) 2 g in NS 100 mL IVPB 2 g lidocaine (PF) (XYLOCAINE) 2% injection 100 mg fentaNYL (SUBLIMAZE) 100 mcg/2 mL inject ion 50 mcg ketamine 10 mg/mL injection 10 mg propofol (DIPRIVAN) 1000 mg/100 mL infus ion 334 mg propofol (DIPRIVAN) 200 mg/20 mL injecti on 50 mg dexamethasone (DECADRON) injection 8 mg phenylephrine (GATO-SYNEPHRINE) 10 mg/mL injection 200 mcg lactated ringers infusion 700 mL * Agents Name O2 N2O Air Inspired Sevoflurane Sevoflurane Ancillary O2 * Blood No blood administrations on file. Lines, Drains, and Airways Type Details Placement Removal Casper Catheter 11/09/21; 0755; No; Obstruction - Urinary retention/Bladder outlet obstruction; 1; Hand hygiene performed, Site cleansed with sterile antiseptic, Sterile gloves, drape and lubricant used, Catheter inserted using aseptic technique, Casper care post catheter insertion, Anchoring device applied, Drainage bag secured below level of bladder, Closed system maintained; Stat lock; Latex; 20 Fr. 11/09/21 0755 by Chloe Chase RN Peripheral IV Placement Date: 11/09/21; Placement Time: 06; Placed Outside of This Facility?: No; Size: 20 G; Orientation: Left; Location: Antecubital; Site Prep: Chlorhexidine; Local Anesthetic: None; Insertion attempts: 1; Ultrasound-guided Placement?: No; Patient Tolerance: Tolerated well; Removal Date: 11/09/21; Removal Time: 0945; Removal Reason: Patient Discharged 11/09/21629 by Ivy Smith RN 11/09/21 0945 by Nga Julio RN Supraglottic Airway Placement Date: 11/09/21; Placement Time: 639; Airway Device: Facemask; Removal Date: 11/09/21; Removal Time: 0811/09/21 06 by Margie Cain CRNA 11/09/21 0809 by Margie Cain CRNA documented in this encounter Social History Tobacco Use Types Packs/Day Years Used Date Smoking Tobacco: Former Cigarettes 2 40 1 970 - 2009 Smokeless Tobacco: Never Alcohol Use Standard Drinks/Week Comments Not Currently 0 (1 standard drink = 0.6 oz pur e alcohol) Sex and Gender Information Value Date Recorded Sex Assigned at Not on file Legal Sex Male 3:43 PM INDUSTRIAL PROPERTY APPRAISER Gender Identity Male 10/27/2021 1:50 PM INDUSTRIAL PROPERTY APPRAISER Sexual Orientation Straight 10/27/2021 1: 50 PM INDUSTRIAL PROPERTY APPRAISER COVID-19 Exposure Response Date Recorded In the last 10 days, have yo u been in contact with someone who was confirmed or suspected to have Coronavirus/COVID-19? No / Unsure 11/09/2021 5:31 AM CDT documented as of this encounter OR Notes * Anesthesia Postprocedure Evaluation - Sarabjit Adorno MD - 11/09/2021 9:32 AM CDT Anesthesia Post-op Note Freddy Sergio Procedure(s): CYSTOSCOPY WITH DIRECT VISION INTERNAL URETHROTOMY, URETHRAL DILATION, COMPLEX CASPER PLACEMENT (N/A Urethra) Anesthesia type: general Vitals: 11/09/21944 BP: (!) 159/89 Vitals: 11/09/21944 Pulse: 66 Vitals: 11/09/2145 Resp: 20 Vitals: 11/09/21944 Temp: 36.2 ??C Vitals: 11/09/21944 SpO2: 95% Patient Location: Phase II/Outpatient Level of Consciousness: awake Pain Management: adequate analgesia Airway Patency: patent Respiratory Status: acceptable Cardiovascular Status: acceptable Post-Op Nausea: none Postoperative Hydration: euvolemic No complications documented. * Anesthesia Postprocedure Evaluation - Sarabjit Adorno MD - 11/09/2021 8:40 AM CDT Anesthesia Post-op Note Freddy Sergio Procedure(s): CYSTOSCOPY WITH DIRECT VISION INTERNAL URETHROTOMY, URETHRAL DILATION,COMPLEX CASPER PLACEMENT (N/A Urethra) Anesthesia type: general Vitals: 11/09/21 0845 BP: (!) 156/71 Vitals: 11/09/21 0845 Pulse: 78 Vitals: 11/09/21 0845 Resp: 25 Vitals: 11/09/21 0845 Temp: 36.1 ??C Vitals: 11/09/21 0845 SpO2: 98% Patient Location: PACU Level of Consciousness: awake Pain Management: adequate analgesia Airway Patency: patent Respiratory Status: acceptable Cardiovascular Status: acceptable Post-Op Nausea: none Postoperative Hydration: euvolemic No complications documented. * Anesthesia Postprocedure Evaluation - Sarabjit Adorno MD - 11/09/2021 8:39 AM CDT Anesthesia Post-op Note Freddy Sergio Procedure(s): CYSTOSCOPY WITH DIRECT VISION INTERNAL URETHROTOMY, URETHRAL DILATION,COMPLEX CASPER PLACEMENT (N/A Urethra) Anesthesia type: general Vitals: 11/09/2145 BP: (!) 159/89 Vitals: 11/09/21 0945 Pulse: 66 Vitals: 11/09/21 0945 Resp: 20 Vitals: 11/09/2145 Temp: 36.2 ??C Vitals: 11/09/2145 SpO2: 95% Patient Location: PACU Level of Consciousness: awake Pain Management: adequate analgesia Airway Patency: patent Respiratory Status: acceptable Cardiovascular Status: acceptable Post-Op Nausea: none Postoperative Hydration: euvolemic No complications documented. * Anesthesia Preprocedure Evaluation - Sarabjit Adorno MD - 11/09/2021 6:23 AM CDT Images from the original note were not included. Anesthesia ROS/MED History Reviewed: Patient summary , Family history anesthesia, Anesthesia history , Medications , Labs , Unchecked boxes are not applicable Pre-Anesthetic State: alert, awake and responds appropriately history of anesthetic complications, (PONV) Pulmonary (+) COPD (Wears oxygen at night and when he exerts himself.), (oxygen dependent), sleep apnea, (CPAP)(-) pneumonia, smoker Cardiovascular Exercise tolerance:poor (+) pacemaker, hypertension, (well controlled), Peripheral vascular disease, hyperlipidemia(-) pastMI, angina, CHF Neuro/Psych (-) no TIA, no CVA, no substance use GI/Hepatic/Renal (+) GERD, (well controlled), renal disease, (CRI)(-) liver disease Endo/Other (+) arthritis, (OA), blood dyscrasia, (Anticoagulation), (Anemia) (-) diabetes, hypothyroidism, hyperthyroidism GENERAL COMMENTS No Known Allergies Past Medical History: No date: Anemia No date: Anesthesia Comment: after hip surgery was in hospital for a week after to get kidneys functioning again. 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 No date: ANDRZEJ (obstructive sleep apnea) No date: Oxygen desaturation during sleep Comment: wears 2 liters at night No date: Pacemaker Comment: medtronic No date: PAD (peripheral artery disease) ([facility]) 05/2021: PNA (pneumonia) No date: PONV (postoperative nausea and vomiting) No date: PVD (peripheral vascular disease) ([facility]) Past Surgical History: No date: ANESTH, LIMB ARTERIOGRAM....; Left Comment: with stents x 3 2014: CAROTID ENDARTERECTOMY; Right No date: COLONOSCOPY No date: FEMUR FRACTURE SURGERY Comment: with hardware No date: HIP ARTHROPLASTY; Bilateral Comment: and 1 revision 2019: PACEMAKER No date: SINUS SURGERY Comment: for sleep apnea 05/2021: THORACOTOMY Comment: at [facility] Former Smoker Physical Evaluation Airway Mallampati: III TM Distance: >3 FB Neck ROM: normal Dental (bridgework), (crowns) Pulmonary Pulmonary exam normal (+) decreased breath sounds, (diminished bilaterally) Cardiovascular Rhythm: regular Rate: normal Cardiovascular exam normal Other findings: Blood pressure (!) 147/94, pulse 83, resp. rate 16, SpO2 95 %. No results for input(s): WBC, RBC, HGB, HCT, PLT, NA, K, CL, CO2, AGAP, BUN, CR, BUNCREATININ, GFRNON, GFR, GLU, CA in the last 72 hours. Anesthesia Plan ASA 4 Intravenous Induction Anesthesia type: general Plan for Airway: LMA and nasal cannula/simple face mask Plan for Post-op Pain Plan: as per surgeon and oral pain medication Discussed potential risks of General Anesthesia including but not limited to corneal abrasion, visual impairment or visual loss, mouth injury, dental damage, sore throat, hoarseness, esophageal injury, awareness under anesthesia, nerve injury due to positioning, aspiration, pneumonia, stroke, cardiac event, adverse drug reactions and . TIVA Vs Gen with LMA Informed Consent Anesthetic plan and risks discussed [...] 2 g, Intravenous, at 200 mL/hr, call out operator to O.R., 1 dose, First dose on Tue11/09/21 at 0600, Pre-OpIndications:Gross hematuria,Urinary retention Given 11/09/2021 7:35 AM CDT 2 g dexamethasone (DECADRON) injection Intravenous, PRN, Starting on Tue11/09/21 at 0740, Until Tue11/09/21 at 0814, Anesthesia Intra-Op Given 11/09/2021 7:40 AM CDT 8 mg fentaNYL (SUBLIMAZE) injection Intravenous, PRN, Starting on Tue11/09/21 at 0730, Until Tue11/09/21 at 0814, Anesthesia Intra-Op Given 11/09/2021 7:41 AM CDT 25 mcg Given 11/09/2021 7:30 AM CDT 25 mcg ketamine (KETALAR) injection Intravenous, PRN, Starting on Tue11/09/21 at 0729, Until Tue11/09/21 at 0814, Anesthesia Intra-Op Given 11/09/2021 7:29 AM CDT 10 mg lactated ringers infusion at 10 mL/hr, Intravenous, Continuous, Starting on Tue11/09/21 at 0645, Until Tue11/09/21 at 1208, Infuse at TKO rate,Please do not start LR if patient has diagnosis of End stage renal disease, Pre-Op New Bag 11/09/2021 7:20 AM CDT lidocaine (PF) (XYLOCAINE) 2 % injection Intravenous, PRN, Starting on Tue11/09/21 at 0734, Until Tue11/09/21 at 0814, Anesthesia Intra-Op Given 11/09/2021 7:34 AM CDT 100 mg phenylephrine (GATO-SYNEPHRINE) injection Intravenous, PRN, Starting on Tue11/09/21 at 0755, Until Tue11/09/21 at 0814, Anesthesia Intra-Op Given 11/09/2021 7:58 AM CDT 100 mcg Given 11/09/2021 7:55 AM CDT 100 mcg propofol (DIPRIVAN) infusion Intravenous, PRN, Starting on Tue11/09/21 at 0734, Until Tue11/09/21 at 0814, Anesthesia Intra-Op New Bag 11/09/2021 7:59 AM CDT 80 mcg/kg/min 42 mL/hr Given 11/09/2021 7:55 AM CDT 100 mg Given 11/09/2021 7:45 AM CDT 120 mg propofol (DIPRIVAN) IV bolus Intravenous, PRN, Starting on Tue11/09/21 at 0736, Until Tue11/09/21 at 0814, Anesthesia Intra-Op Given 11/09/2021 7:36 AM CDT 50 mg documented in this encounter Care Teams Brush Worker Relationship Specialty Start Date End Date Ross Espinosa MD [address] [place] [address] PCP - General INTERNAL MEDICINE 10/29/21 03/29/22 documented as of this encounter
--- OUTSIDE RECORDS SUMMARY | 2024-09-12 15:31 | XMS_ITS | Encounter Summary ---
Author Organization [facility] Address [address] [place] [address]. [place], [place] [address] [place] [address] Care Team Providers Care Electric Drill Operator Name Role Phone Unavailable Primary Care Provider Unavailabl e Encounter Details Date Type Department Care Team (Latest Contact Info) Description 10/26/2021 Travel Social History Tobacco Use Types Packs/Day Years Used Date Smoking Tobacco: Former Cigarettes 2 40 1 970 - 2009 Smokeless Tobacco: Never Alcohol Use Standard Drinks/Week Comments Not Currently 0 (1 standard drink = 0.6 oz pur e alcohol) Sex and Gender Information Value Date Recorded Sex Assigned at Not on file Legal Sex Male 3:43 PM PRODUCE CLERK Gender Identity Male 10/27/2021 1:50 PM PRODUCE CLERK Sexual Orientation Straight 10/27/2021 1: 50 PM PRODUCE CLERK COVID-19 Exposure Response Date Recorded In the last 10 days, have yo u been in contact with someone who was confirmed or suspected to have Coronavirus/COVID-19? No / Unsure 10/26/2021 10:32 AM PRODUCE CLERK documented as of this encounter Plan of Treatment Not on file documented as of this encounter Visit Diagnoses Not on filedocumented in this encounter
--- OUTSIDE RECORDS SUMMARY | 2024-09-12 15:31 | XMS_ITS | Encounter Summary ---
Author Organization [facility] Address [address] [place] [address]. [place], [place] [address] [place] [address] Care Team Providers Care Line Lead Name Role Phone Ross Espinosa MD Primary Care Provider +1- [phone] Reason for Visit * Auth/Cert Specialty Diagnoses / Procedures Referred By Contac t Referred To Contact Diagnoses GROSS HEMATURIA, URINARY RETENTION R31.0, R33.9 Procedures CYSTOSCOPY WITH POSSIBLE DIRECT VISION INTERNAL URETHROTOMY Referral ID Status Reason Start Date Expiration Date Visits Re quested Visits Authorized [id number] 1 1 Encounter Details Date Type Department Care Team (Late st Contact Info) Description 10/29/2021 9:33 AM COLLATOR - 10/29/2021 11:59 AM [facility] Hospital Encounter [facility] [place] [address] Thom Catalan MD 3 [facility] [address] [place] [address] Discharge Disposition: Home or Self Care (Routine [...] on file Legal Sex Male 3:43 PM COLLATOR Gender Identity Male 10/27/2021 1:50 PM COLLATOR Sexual Orientation Straight 10/27/2021 1: 50 PM COLLATOR COVID-19 Exposure Response Date Recorded In the last 10 days, have trudy ho been in contact with someone who was confirmed or suspected to have Coronavirus/COVID-19? No / Unsure 10/29/2021 9:29 AM COLLATOR documented as of this encounter Last Filed Vital Signs Vital Sign Reading Time Taken Comments Blood Pressure 155/99 10/29/2021 11:20 AM COLLATOR Pulse 82 10/29/2021 11:20 AM COLLATOR Temperature 36.9 ??C (98.4 ??F) 10/29/2021 1 1:20 AM COLLATOR Respiratory Rate 16 10/29/2021 11:2 0 AM COLLATOR Oxygen Saturation 94% 10/29/2021 11: 20 AM COLLATOR Inhaled Oxygen Concentration - - Weight 81.6 kg (179 lb 14.3 oz) 022 11:20 AM COLLATOR Height 172.7 cm (5' 8) 10/29/2021 11:2 0 AM COLLATOR Body Mass Index 27.35 10/29/2021 11:20 AM COLLATOR documented in this encounter Medications at Time of Discharge albuterol sulfate HFA 108 (90 Base) MCG/ACT [...] mg by mouth nightly at bedtime. Dupilumab (Data Driven Delivery SystemIXMemoryBistro) 300 MG/2ML Solution Pen-injector Inject 1 Application [...] the lungs 2 (two) times daily. 10/06/2021 Acetaminophen 500 MG Chew Tab Chew 1 tablet by mouth daily. 2 apixaban 5 MG tablet Take 5 mg by mouth 2 (two) times daily. 2 atorvastatin 40 MG tablet Take 40 mg by mouth nightly at bedtime. 2 clopidogrel 75 MG tablet Take 75 mg by mouth daily. 2 documented as of this encounter Nursing Notes * Nicole Ibarra RN - 10/29/2021 11:[address] Catalan that patient stopped his plavix and eliquis on Tuesday. Dr. catalan states that is not long enough to be off plavix. Per Dr. Catalan, pt is being cancelled and will be rescheduled. Dr. Catalan at bedside to notify patient. ATOR documented in this encounter OR Notes * OR PreOp - Amairani Gurrola RN - 10/27/2021 9:24 AM CST Called to request most recent testing. EKG 06/11/21 is most recent test. To have echo 11/17/21. No other testing in their system. Clearance obtained. Hold Plavix 5 days and Eliquis 2 days I called Kaylyn with Dr. Catalan. She will ensure that Dr. Catalan is okay with proceeding with the patient only holding Plavix 4 days as she was able to call the patient yesterday and confirm he had not yet taken his medication and would hold Plavix that day. ATOR * OR PreOp - NICCI Johnson - 10/26/2021 11:59 AM CST Chart reviewed. Per phone interview, patient states he can climb 2 FOS without CP/extreme SOB but would have some SOB 2/2 COPD. Denies recent changes in activity tolerance in past 6 months. Patient sees shop tailor apprentice Dr. Lay and states he has had recent cardiac testing. Only cardiac testing available in chart is previous EKG in Care Everywhere. Patient will need cardiac clearance with anticoagulation instructions for upcoming urology surgery. Please request previous cardiac testing from shop tailor apprentice office to review for surgery. Addendum 10/27- Clearance with anticoagulation instructions received and now in Media. Office states they do not have any additional cardiac testing on file for patient. Patient does not need COVID testing prior to surgery, he/she has completed their COVID vaccine series more than 14 days prior to surgery date. Patient notified by RN to provide proof of vaccination prior to surgery. Cardiac clearance per Dr. Lay. Intermediate risk. Able to hold Plavix x5 days and Eliquis x2 days. Pacemaker interrogated 08/12/21: Office pacemaker evaluation demonstrated appropriate device function. Battery function-2.98V, 6.2 years remaining battery life to HERMELINDO. Presenting rhythm-ASVP. Underlying rhythm-SR with First Degree AV Block. NJ interval 240 ms. AP-2.5%, RESEARCH CONTRACTS SUPERVISOR-99%. 15 mode switch episodes recorded, ie's Afib/Aflutter, longest episode 30 min to 1 hour. No Ventricular high rate episodes noted. Medications; Eliquis, Plavix. Atrial amplitude decreased to 1.5V. Ventricular amplitude decreased to 2.0V and PW increased to 1.0 ms. EKG 06/11/21 Atrial-sensed ventricular-paced rhythm (see lead 111) Nonspecific ST segment abnormalities consistent with ischemia,metabolic abnormalities,drugs,etc. No previous ECGs available Rate 83 ATOR ATOR * OR PreOp - Amairani Gurorla RN - 10/26/2021 10:22 AM CST Can you climb 2 flights of stairs without CP or extreme SOB? Yes, would be SOB 2/2 COPD Are you physically able to do the same things today that you could 6 months ago? Yes. Only reduced 2/[address] What is your average blood pressure? 130/88 Any recent heart testing? (EKG, stress test, Echo?) At Dr. Lay's office within last few months Do you see a shop tailor apprentice? Who is it? Dr. Lay's office Balwinder ([facility]) Pacemaker - interrogation in Care everywhere 08/12/[address] Lay's office. Per Kaylyn with Dr. Catalan, patient does not need to hold blood thinners with this procedure. Kaylyn called back and said that he actually does need to hold plavix and Eliquis. While on phone with her I sent an urgent addendum request to shop tailor apprentice for request. Ylopo 08/12/21- will bring card DOS Had [employer] 2019 Symptoms - temperature 104, SOB, hospitalized for 4 days, not on ventilator. ATOR ATOR ATOR documented in this encounter Plan of Treatment Not on file documented as of this encounter Procedures Procedure Name Priority Date/Time Associated Diagnosis Comments BASIC METABOLIC PANEL STAT 10/29/2021 10:59 AM COLLATOR Preop examination CBC W/DIFF AUTOMATED STAT 10/29/2021 10:59 AM COLLATOR Preop examination documented in this encounter Results * (ABNORMAL) CBC W/DIFF AUTOMATED (10/29/2021 10:59 AM COLLATOR) WBC 8.2 4.5 - 11.0 x10'3/uL 10/29/2021 11:11 AM [facility] RBC 4.37(L) 4.70 - 6.10 x10'6/uL 10/29/2021 11:11 AM [facility] HGB 11.5(L) 14.0 - 18.0 G/DL 10/29/2021 11:11 AM [facility] HCT 38.6(L) 43.0 - 54.0 % 10/29/2021 11:11 AM [facility] MCV 88.3 80.0 - 94.0 FL 10/29/2021 11:11 AM [facility] MCH 26.3(L) 27.0 - 31.0 PG 10/29/2021 11:11 AM [facility] MCHC 29.8(L) 32.0 - 36.0 G/DL 10/29/2021 11:11 AM [facility] RDW 14.7(H) 11.5 - 14.5 % 10/29/2021 11:11 AM [facility] PLT 184 130 - 400 x10'3/uL 10/29/2021 11:11 AM [facility] MPV 10.9 9.3 - 12.2 FL 10/29/2021 11:11 AM [facility] DIFFERENTIAL TYPE AUTOMATED DIFFERENTIAL 10/29/2021 11:11 AM [facility] NEUTROPHILS % 77.7 % 10/29/2021 11:11 AM [facility] LYMPHOCYTES % 11.0 % 10/29/2021 11:11 AM [facility] MONOCYTES % 7.1 % 10/29/2021 11:11 AM [facility] EOSINOPHILS 3.8 % 10/29/2021 11:11 AM [facility] BASOPHILS 0.2 % 10/29/2021 11:11 AM [facility] IMMATURE GRANS % 0.2 % 10/30/19 11:11 AM [facility] ABS. NEUTROPHILS TOTAL 6.34 1.80 - 7.70 x10'3/uL 10/29/2021 11:11 AM [facility] ABS. LYMPHOCYTES 0.90(L) 1.00 - 4.80 x10'3/uL 10/29/2021 11:11 AM [facility] ABS. MONOCYTES 0.58 0.30 - 0.82 x10'3/uL 10/29/2021 11:11 AM [facility] ABS. EOSINOPHILS 0.31 0.04 - 0.54 x10'3/uL 10/29/2021 11:11 AM [facility] ABS. BASOPHILS 0.02 0.01 - 0.08 x10'3/uL 10/29/2021 11:11 AM [facility] ABS. IMMATURE GRANULOCYTES 0.02 0.00 - 0.49 x10'3/uL 10/29/2021 11:11 AM [facility] 10/29/2021 10:5 9 AM COLLATOR Radha Lopez [facility] Final R esult [facility] [address] [place] [address], [place] [phone] * (ABNORMAL) BASIC METABOLIC PANEL (10/29/2021 10:59 AM COLLATOR) Pathologist [facility] GLUCOSE 96 70 - 99 MG/DL 10/29/2021 11:25 AM [facility] BUN 47(H) 7 - 18 MG/DL 10/29/2021 11:25 AM [facility] CREATININE S/P/B 2.52(H) 0.7 - 1.3 MG/DL 10/29/2021 11:25 AM [facility] SODIUM S/P/B 142 136 - 145 MMOL/L 10/29/2021 11:25 AM [facility] POTASSIUM S/P/B 4.1 3.5 - 5.1 MMOL/L 10/29/2021 11:25 AM [facility] CHLORIDE S/P/B 109(H) 100 - 108 MMOL/L 10/29/2021 11:25 AM [facility] CO2 31.0 21 - 32 MMOL/L 10/29/2021 11:25 AM [facility] CALCIUM S/P/B 9.1 8.5 - 10.1 MG/DL 10/29/2021 11:25 AM [facility] ANION GAP 2.0(L) 5 - 15 MMOL/L 10/29/2021 11:25 AM [facility] BUN CREATININE RATIO 18.7 6 - 26 10/29/2021 11:25 AM [facility] EGFR NON-AFR. AMER. 25(L) >90 ML/MIN/1.7 3 M2 10/29/2021 11:25 AM [facility] EGFR AFR. AMER. 29(L) >90 ML/MIN/1.7 3 M2 10/29/2021 11:25 AM [facility] Comment: NOTE: eGFR is not calculated for patients <18 years of age. This is an estimated GFR (CKD EPI) and should not be used for calculating drug doses. 10/29/2021 10:5 9 AM COLLATOR Radha Lopez PROGRAM SUPPORT CLERK LABORATORY Final R esult [facility] [address] [place] [address], [place] [phone] documented in this encounter Visit Diagnoses Diagnosis Gross hematuria- Primary Urinary retention Retention of urine, unspecified Preop examination Preoperative examination, unspecified documented in this encounter Administered Medications Inactive Administered Medications - up to 3 most recent administrations Medication Order MAR Action Action Date Dose Rate Site acetaminophen (TYLENOL) tablet 1,000 mg 1,000 mg, Oral, Once, 1 dose, On Chiara 10/29/21 at 1000, Maximum dose of acetaminophen is 4000 mg from all sources in 24 hours., Pre-Op Given 10/29/2021 11:08 AM COLLATOR 1,000 mg gabapentin (NEURONTIN) capsule 300 mg 300 mg, Oral, Once, 1 dose, On Chiara 10/29/21 at 1000, Pre-Op Given 10/29/2021 11:08 AM COLLATOR 300 mg lactated ringers infusion at 10 mL/hr, Intravenous, Continuous, Starting on Chiara 10/29/21 at 1000, Until Chiara 10/29/21 at 1401, Infuse at TKO rate, Pre-Op ondansetron (ZOFRAN-ODT) disintegrating tablet 8 mg 8 mg, Oral, Once, 1 dose, On Chiara 10/29/21 at 1000, On admission, Pre-Op Given 10/29/2021 11:08 AM COLLATOR 8 mg documented in this encounter Active and Recently Administered Medications Times are shown in COLLATOR. Scheduled Medication Order 10/27/2021 10/28/2021 10/29/2021 acetaminophen (TYLENOL) tablet 1,000 mg (COMPLETED) 1,000 mg, Oral, Once, 1 dose, On Chiara 10/29/21 at 1000, Maximum dose of acetaminophen is 4000 mg from all sources in 24 hours., Pre-Op 1108 (Given - Provid er: Nicole Ibarra RN) ceFAZolin (ANCEF) 2 g in NS 100 mL IVPB 2 g, Intravenous, at 200 mL/hr, scallop shucker to O.R., 1 dose, First dose on Chiara 10/29/21 at 1000, Pre-Op 1000 (Canceled Entry - Provider: Automatic Discharge Provider - Comment: Automatically canceled at discontinue of medication order) gabapentin (NEURONTIN) capsule 300 mg (COMPLETED) 300 mg, Oral, Once, 1 dose, On Chiara 10/29/21 at 1000, Pre-Op 1108 (Given - Provid er: Nicole Ibarra RN) ondansetron (ZOFRAN-ODT) disintegrating tablet 8 mg (COMPLETED) 8 mg, Oral, Once, 1 dose, On Chiara 10/29/21 at 1000, On admission, Pre-Op 1108 (Given - Provid er: Nicole Ibarra RN) Continuous Medication Order 10/27/2021 10/28/2021 10/29/2021 lactated ringers infusion at 10 mL/hr, Intravenous, Continuous, Starting on Chiara 10/29/21 at 1000, Until Chiara 10/29/21 at 1401, Infuse at TKO rate, Pre-Op 1000 (Canceled Entry - Provider: Automatic Discharge Provider - Comment: Automatically canceled at discontinue of medication order) documented in this encounter Care Teams Line Lead Relationship Specialty Start Date End Date Ross Espinosa MD [address] [place] [address] PCP - General INTERNAL MEDICINE 10/29/21 03/29/22 documented as of this encounter
--- OUTSIDE RECORDS SUMMARY | 2024-09-12 15:31 | XMS_ITS | Encounter Summary ---
Author Organization [facility] Address [address] [place] [address]. [address] [address] Care Team Providers Care Painter And Decorator Name Role Phone Ross Espinosa MD Primary Care Provider +1- [phone] Encounter Details Date Type Department Care Team (Latest Contact Info) Description 11/04/2021 Travel Social History Tobacco Use Types Packs/Day Years Used Date Smoking Tobacco: Former Cigarettes 2 40 1 970 - 2009 Smokeless Tobacco: Never Alcohol Use Standard Drinks/Week Comments Not Currently 0 (1 standard drink = 0.6 oz pur e alcohol) Sex and Gender Information Value Date Recorded Sex Assigned at Not on file Legal Sex Male 3:43 PM METAL TRIMMER Gender Identity Male 10/27/2021 1:50 PM METAL TRIMMER Sexual Orientation Straight 10/27/2021 1: 50 PM METAL TRIMMER COVID-19 Exposure Response Date Recorded In the last 10 days, have yo u been in contact with someone who was confirmed or suspected to have Coronavirus/COVID-19? No / Unsure 11/04/2021 10:25 AM CDT documented as of this encounter Plan of Treatment Not on file documented as of this encounter Visit Diagnoses Not on filedocumented in this encounter Care Teams Painter And Decorator Relationship Specialty Start Date End Date Ross Espinosa MD [address] [place] [address] PCP - General INTERNAL MEDICINE 10/29/21 03/29/22 documented as of this encounter
--- OUTSIDE RECORDS SUMMARY | 2024-09-12 15:31 | XMS_ITS | Encounter Summary ---
Author Organization [facility] Address [address] [place] [address]. [place], [place] [address] [place] [address] Care Team Providers Care Supervisor Microfilm Duplicating Unit Name Role Phone Unavailable Primary Care Provider Unavailabl e Encounter Details Date Type Department Care Team (Latest Contact Info) Description 10/27/2021 Travel Social History Tobacco Use Types Packs/Day Years Used Date Smoking Tobacco: Former Cigarettes 2 40 1 970 - 2009 Smokeless Tobacco: Never Alcohol Use Standard Drinks/Week Comments Not Currently 0 (1 standard drink = 0.6 oz pur e alcohol) Sex and Gender Information Value Date Recorded Sex Assigned at Not on file Legal Sex Male 3:43 PM PIPELINES LABORER Gender Identity Male 10/27/2021 1:50 PM PIPELINES LABORER Sexual Orientation Straight 10/27/2021 1: 50 PM PIPELINES LABORER COVID-19 Exposure Response Date Recorded In the last 10 days, have yo u been in contact with someone who was confirmed or suspected to have Coronavirus/COVID-19? No / Unsure 10/26/2021 10:32 AM PIPELINES LABORER documented as of this encounter Plan of Treatment Not on file documented as of this encounter Visit Diagnoses Not on filedocumented in this encounter
--- OUTSIDE RECORDS SUMMARY | 2024-09-12 15:31 | XMS_ITS | Encounter Summary ---
Author Organization [facility] Address [address] [place] [address]. [address] [address] Care Team Providers Care Stringer Up Soldering Machine Name Role Phone Ross Espinosa MD Primary Care Provider +1- [phone] Encounter Details Date Type Department Care Team (Latest Contact Info) Description 11/03/2021 Travel Social History Tobacco Use Types Packs/Day Years Used Date Smoking Tobacco: Former Cigarettes 2 40 1 970 - 2009 Smokeless Tobacco: Never Alcohol Use Standard Drinks/Week Comments Not Currently 0 (1 standard drink = 0.6 oz pur e alcohol) Sex and Gender Information Value Date Recorded Sex Assigned at Not on file Legal Sex Male 3:43 PM SAP BODS DEVELOPER Gender Identity Male 10/27/2021 1:50 PM SAP BODS DEVELOPER Sexual Orientation Straight 10/27/2021 1: 50 PM SAP BODS DEVELOPER COVID-19 Exposure Response Date Recorded In the last 10 days, have yo u been in contact with someone who was confirmed or suspected to have Coronavirus/COVID-19? No / Unsure 10/29/2021 9:29 AM SAP BODS DEVELOPER documented as of this encounter Plan of Treatment Not on file documented as of this encounter Visit Diagnoses Not on filedocumented in this encounter Care Teams Stringer Up Soldering Machine Relationship Specialty Start Date End Date Ross Espinosa MD [address] [place] [address] PCP - General INTERNAL MEDICINE 10/29/21 03/29/22 documented as of this encounter
--- OUTSIDE RECORDS SUMMARY | 2024-09-12 15:31 | XMS_ITS | Encounter Summary ---
Author Organization [facility] Address [address] [place] [address]. [place] [address] [place] [address] Care Team Providers Care Game Design Instructor Name Role Phone Ross Espinosa MD Primary Care Provider +1- [phone] Reason for Visit * Auth/Cert Specialty Diagnoses / Procedures Referred By Contac t Referred To Contact Diagnoses GROSS HEMATURIA, URINARY RETENTION R31.0, R33.9 Procedures CYSTOSCOPY WITH POSSIBLE DIRECT VISION INTERNAL URETHROTOMY Referral ID Status Reason Start Date Expiration Date Visits Re quested Visits Authorized [id number] 1 1 Encounter Details Date Type Department Care Team (Late st Contact Info) Description 10/29/2021 3:05 PM IMMIGRATION COORDINATOR Anesthesia [place] [address] Fermin Moser MD [address] [place] [id number] Radha Lopez FNP 1 [place] [address] Anesthesia Record Procedure Summary Procedure Name Responsible Anesthesiologist Anesthesia Start Time Anesthesia Stop Time CYSTOSCOPY WITH POSSIBLE DIRECT VISION INTERNAL URETHROTOMY (Urethra) Events Date Time Event Comment 10/29/2021 1116 1116 AN Anesthesia Prepped 1212 ANE Not Admin Meds * Agents No agents on file. * Blood No blood administrations on file. [...] Chloe Chase RN Peripheral IV Placement Date: 04/22 05/13; Placement Time: 1048; Placed Outside of This Facility?: No; Size: 18 G; Orientation: Right; Location: Antecubital; Site Prep: Chlorhexidine; Local Anesthetic: None; Insertion attempts: 1; Ultrasound-guided Placement?: No; Patient Tolerance: Tolerated well 05/10/22 1048 by Rosibel Archer RN London Catheter 05/10/22; 1516; Urol ogic Surgical intervention - Bladder, Prostate, TECHNICAL SUPPORT ENGINEER procedures; 1; Hand hygiene performed, Site cleansed with sterile antiseptic, Sterile gloves, drape and lubricant used, Catheter inserted using aseptic technique, Anchoring device applied, London care post catheter insertion, Drainage bag secured below level of bladder, Closed system maintained; Stat lock; Double-lumen, Latex; 20 Fr. 05/10/22 1516 by Alexandrea Bray RN documented in this encounter Social History Tobacco Use Types Packs/Day Years Used Date Smoking Tobacco: Former Cigarettes 2 40 1 970 - 2009 Smokeless Tobacco: Never Alcohol Use Standard Drinks/Week Comments Not Currently 0 (1 standard drink = 0.6 oz pur e alcohol) Sex and Gender Information Value Date Recorded Sex Assigned at Not on file Legal Sex Male 3:43 PM IMMIGRATION COORDINATOR Gender Identity Male 10/27/2021 1:50 PM IMMIGRATION COORDINATOR Sexual Orientation Straight 10/27/2021 1: 50 PM IMMIGRATION COORDINATOR COVID-19 Exposure Response Date Recorded In the last 10 days, have yo u been in contact with someone who was confirmed or suspected to have Coronavirus/COVID-19? No / Unsure 10/29/2021 9:29 AM IMMIGRATION COORDINATOR documented as of this encounter OR Notes * Anesthesia Preprocedure Evaluation - Fermin Moser MD - 10/29/2021 11:13 AM CST Images from the original note were not included. Anesthesia ROS/MED History Reviewed: Patient summary , Family history anesthesia, Anesthesia history , Medications , Labs , Unchecked boxes are not applicable Pre-Anesthetic State: alert, awake and responds appropriately history of anesthetic complications, (PONV) Pulmonary (+) COPD, sleep apnea, (CPAP)(-) pneumonia, smoker Cardiovascular (+) pacemaker, hypertension, (well controlled), Peripheral vascular [...] Chronic kidney disease (CKD), stage III (moderate) ([facility]) No date: Claudication ([facility]) No date: COPD (chronic obstructive pulmonary disease) ([facility]) No date: London catheter in place No date: GERD (gastroesophageal reflux disease) No date: Gross hematuria No date: HLD (hyperlipidemia) No date: Hypertension No date: 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 No date: ANDRZEJ (obstructive sleep apnea) No date: Oxygen desaturation during sleep Comment: wears 2 liters at night No date: Pacemaker Comment: medtronic No date: PAD (peripheral artery disease) ([facility]) 05/2021: PNA (pneumonia) No date: PONV (postoperative nausea and vomiting) No date: PVD (peripheral vascular disease) ([facility]) Past Surgical History: No date: ANESTH, LIMB ARTERIOGRAM....; Left Comment: with stents x 3 2014: CAROTID ENDARTERECTOMY; Right No date: COLONOSCOPY No date: FEMUR FRACTURE SURGERY Comment: with hardware No date: HIP ARTHROPLASTY; Bilateral Comment: and 1 revision 2019: PACEMAKER No date: SINUS SURGERY Comment: for sleep apnea 05/2021: THORACOTOMY Comment: at [facility] Former Smoker Physical Evaluation Airway Mallampati: III TM Distance: >3 FB Neck ROM: normal Dental (bridgework), (crowns) Pulmonary Pulmonary exam normal (+) decreased breath sounds, (diminished bilaterally) Cardiovascular Rhythm: regular Rate: normal Cardiovascular exam normal Other findings: Height 5' 8 (1.727 m), weight 81.6 kg (180 lb). 10/29/21 1059 WBC 8.2 RBC 4.37* HGB 11.5* HCT 38.6* PLT 184 Anesthesia Plan ASA 4 Intravenous Induction Anesthesia [...] patient of whom consent was obtained. . GRATION COORDINATOR documented in this encounter Plan of Treatment Not on file documented as of this encounter Visit Diagnoses Not on filedocumented in this encounter Care Teams Game Design Instructor Relationship Specialty Start Date End Date Ross Espinosa MD [address] [place] [address] PCP - General INTERNAL MEDICINE 10/29/21 03/29/22 documented as of this encounter
--- OUTSIDE RECORDS SUMMARY | 2024-09-12 15:31 | XMS_ITS | Encounter Summary ---
Author Organization [facility] Address [address] [place] [address]. [address] [address] Care Team Providers Care Digital Tech Name Role Phone Ross Espinosa MD Primary Care Provider [phone] Encounter Details Date Type Department Care Team (Latest Contact Info) Description 10/29/2021 Travel Social History Tobacco Use Types Packs/Day Years Used Date Smoking Tobacco: Former Cigarettes 2 40 1 970 - 2009 Smokeless Tobacco: Never Alcohol Use Standard Drinks/Week Comments Not Currently 0 (1 standard drink = 0.6 oz pur e alcohol) Sex and Gender Information Value Date Recorded Sex Assigned at Not on file Legal Sex Male 3:43 PM FINANCIAL REPRESENTATIVE Gender Identity Male 10/27/2021 1:50 PM FINANCIAL REPRESENTATIVE Sexual Orientation Straight 10/27/2021 1: 50 PM FINANCIAL REPRESENTATIVE COVID-19 Exposure Response Date Recorded In the last 10 days, have yo u been in contact with someone who was confirmed or suspected to have Coronavirus/COVID-19? No / Unsure 10/29/2021 9:29 AM FINANCIAL REPRESENTATIVE documented as of this encounter Plan of Treatment Not on file documented as of this encounter Visit Diagnoses Not on filedocumented in this encounter Care Teams Digital Tech Relationship Specialty Start Date End Date Ross Espinosa MD [address] [place] [address] PCP - General INTERNAL MEDICINE 10/29/21 03/29/22 documented as of this encounter
--- OUTSIDE RECORDS SUMMARY | 2024-09-12 15:39 | XMS_ITS | Encounter Summary ---
Author Organization [facility] Healthcare Address [address] [place] [address] Care Team Providers Care Senior Ecologist Name Role Phone Daniela Hilario MANAGER SEARCH Unavailable [phone] Ranulfo Romo DO Primary Care Provider [phone] Encounter Details Date Type Department Care Team (Late st Contact Info) Description 07/12/2023 Telephone [facility] Medical Group Cardiology [address] [place] [address] Josiah Lay MD [address] [id number] Social History Tobacco Use Types Packs/Day Years Used Date Smoking Tobacco: Former Cigarettes Q uit: 08/22/2009 Smokeless Tobacco: Never AUDIT-C Answer Date Recorded Frequency of Alcohol Consumption Not on file 03/22/2022 Q2: How many drinks containi ng alcohol do you have on a typical day when you are drinking? 1 or 2 03/22/2022 Q3: How often do you have si x or more drinks on one occasion? 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 Sexual Orientation Not on file documented as of this encounter Ordered Prescriptions Prescription Sig Dispense Quantity Refills Last Filled Start Date End Date clopidogreL (PLAVIX) 75 mg tablet Take 1 tablet (75 mg total) by mouth daily 30 tablet 11 07/18/2023 09/08/2023 clopidogreL (PLAVIX) 75 mg tablet Take 1 tablet (75 mg total) by mouth daily 07/18/2023 07/18/2023 documented in this encounter Miscellaneous Notes * Addendum Note - Bernice Gomez MA - 07/18/2023 4:54 PM CSTAddended by: BERNICE GOMEZ on: 07/18/2023 04:54 PM Modules accepted: Orders RMATION TECHNOLOGY PROJECT MANAGER * Addendum Note - Bernice Gomez MA - 07/18/2023 3:21 PM CSTAddended by: BERNICE GOMEZ on: 07/18/2023 03:21 PM Modules accepted: Orders RMATION TECHNOLOGY PROJECT MANAGER * Telephone Encounter - Molly Emerson RN - 07/13/2023 3:22 PM CST Message sent to pt via my chart RMATION TECHNOLOGY PROJECT MANAGER * Addendum Note - Molly Emerson RN - 07/13/2023 1:28 PM CSTAddended by: MOLLY EMERSON on: 07/13/2023 01:28 PM Modules accepted: Orders RMATION TECHNOLOGY PROJECT MANAGER * Telephone Encounter - Molly Emerson RN - 07/13/2023 1:25 PM CST DK- when I went to send in this RX I realized that he was on Xarelto low dose/ coronary/ PAD dosing. I just wanted to double check that Eliquis is still appropriate in this instance? I advised the pt to continue Xarelto until I was able to discuss with DK. RMATION TECHNOLOGY PROJECT MANAGER RMATION TECHNOLOGY PROJECT MANAGER * Telephone Encounter - Molly Emerson RN - 07/13/2023 1:17 PM CST Message sent to pt via my chart. Rx sent in. RMATION TECHNOLOGY PROJECT MANAGER * Telephone Encounter - Molly Emerson RN - 07/12/2023 8:52 AM CST I am in the [place] hole for prescriptions an realized the cost difference between Eliquis to Xarelto. My medicare plan is approximately $2.50 per pill more expensive for Xarelto. Xarelto does not offer a discount yet for medicare patients. So if Xarelto is not significantly better please switch me back to Eliquis. DK- pt has a hx CKD. He was previously on 2.5 mg BID. Please advise on dosing and if ok to switch. RMATION TECHNOLOGY PROJECT MANAGER RMATION TECHNOLOGY PROJECT MANAGER documented in this encounter Plan of Treatment Not on file documented as of this encounter Visit Diagnoses Not on filedocumented in this encounter Discontinued Medications Medication Sig Discontinue Reason Start Date End Da te rivaroxaban (XARELTO) 2.5 mg tablet Take 1 tablet (2.5 mg total) by mouth 2 (two) times a day Alternate therapy 03/03/2022 07/13/2023 clopidogreL (PLAVIX) 75 mg tablet Take 1 tablet (75 mg total) by mouth daily Reorder 07/18/2023 07/18/2023 documented as of this encounter Care Teams Senior Ecologist Relationship Specialty Start Date End Date Ranulfo Romo DO PCP - General Family Medicine 04/08/22 Daniela Hilario NP Nurse Practitioner Nurse Practitioner 03/26/22 documented as of this encounter
--- OUTSIDE RECORDS SUMMARY | 2024-09-12 15:39 | XMS_ITS | Encounter Summary ---
Author Organization [facility] Healthcare Address [address] [place] [address] Care Team Providers Care Manager Installation Name Role Phone Daniela Hilario PLANT CUSTODIAN Unavailable [phone] Ranulfo Romo DO Primary Care Provider [phone] Reason for Visit * Reason Comments Follow-up Post cath- 01/27/[address] Lay NSVT Encounter Details Date Type Department Care Team (Late st Contact Info) Description 04/25/2024 1:00 PM CDT Office Visit [facility] [address] [place] [address] Josiah Lay MD [facility] [address] Chronic total occlusion of coronary artery (Primary Dx); History of complete AV block; Cardiac pacemaker in situ; PAD (peripheral artery disease) (HCC); Mild aortic stenosis; Stage 3b chronic kidney disease (HCC); Chronic respiratory failure with hypoxia, on home O2 therapy (CMS/HCC) (HCC); History of tobacco abuse; Hypertension, unspecified type Social History Tobacco Use Types Packs/Day Years [...] more drinks on one occasion? Never 03/22/2022 Personal Safety Answer Date Recorded Have you ever been in or are you currently in a harmful physical or emotional relationship or is someone making you feel afraid or unsafe? 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 Sexual Orientation Not on file documented as of this encounter Last Filed Vital Signs Vital Sign Reading Time Taken Comments Blood Pressure 126/62 04/25/2024 12:57 PM CDT Pulse 85 04/25/2024 12:57 PM CDT Temperature - - Respiratory Rate - - Oxygen Saturation 91% 04/25/2024 12: 57 PM CDT w/portable o2 Inhaled Oxygen Concentration - - Weight 83.8 kg (184 lb 11.2 oz) 04/25/2024 12:57 PM CDT Height 172.7 cm (5' 8) 04/25/2024 12:5 7 PM CDT Body Mass Index 28.08 04/25/2024 12:57 PM CDT documented in this encounter Progress Notes * Josiah Lay MD - 04/25/2024 1:00 PM CDT [facility] 04/25/2024 CHIEF COMPLAINT Cardiovascular management HPI Freddy Hill is a 73 y.o. male with hypertension, history of AV block status post Medtronic pacemaker placement in June 2020, peripheral artery disease involving left lower extremity and carotid arteries, status post left lower extremity intervention; status post right carotid enterectomy; COPD, history of COVID-19 infection. 05/13/2021 initial evaluation-patient is here to reestablish cardiovascular care. Patient states that he moved to local area in October 2020 from [place], [place]. Patient has extensive cardiovascular history. His history of peripheral vascular disease, and states that he had both endovascular and surgical intervention in the left lower extremity. He also has history of AV block and is status post Medtronic pacemaker placement in June 2020. Patient has history of right carotid enterectomy. Patient states that he was found to have AV block during left lower extremity surgical procedure about 3 years ago. He subsequently had Medtronic pacemaker placement. He denies any history of clinical LA, angina. At present, patient has dyspnea on exertion, able to walk less than a block before he gets short of breath. He denies anginal chest pain. He has occasional dizziness without syncope. He also has left lower extremity claudication, able to walk half block before he gets discomfort in theleft lower extremity. He denies any rest pain or ischemic foot ulcers. Patient gives history of COVID-19 infection in April 2020. He states that he was hospitalized for 3 days, and was on supplemental oxygen. He does not recall being intubated. Patient has history of tobacco abuse, denies any current tobacco use. 10/21/2021-here for the routine follow-up visit. He was hospitalized at [facility] in June 2021 with worsening shortness of breath, found to be in a COPD exacerbation and with some volume overload. At present, patient has dyspnea on exertion, able to walk about 1 block before he gets short of breath. His activity is also limited due to claudication in the lower extremities, left worse than right. He is able to walk about 1 block before he gets discomfort in the legs. Denies rest pain. Denies any ischemic foot ulcers. No chest pain. Reports compliance with current medical regimen. Patient is on home oxygen. 12/30/[id number] visit today, patient reports worsening discomfort in bilateral lower extremities. He is able to walk about half a block before he gets pain in calves followed by thighs bilaterally. He denies rest pain. Denies any ischemic foot ulcers at present. He gives history of peripheral vascular intervention and stenting in the left lower extremity, intervention report is not available. He has been compliant with medications including antiplatelet therapy, anticoagulation and also with cilostazol which was recently prescribed. He also has been experiencing some worsening of the shortness of breath which he attributes to allergens. He is on supplemental oxygen at home. Denies chest pain. No palpitation, dizziness or syncope. 03/17/2022-patient is here for the follow-up visit after recent peripheral angiogram which showed severe peripheral artery disease. Vascular surgery was consulted, and is being considered for possible surgical revascularization. Patient continues to have significant lifestyle limiting bilateral lower extremity claudication, currently left lower extremity worse than the right. Denies ischemic footulcers. He has chronic dyspnea from chronic respiratory failure, and is on home oxygen. Denies chest pain at present. Reports compliance with current medical regimen, denies any bleeding complications. 09/01/2022-on the follow-up visit today, patient denies any significant claudication at present. Hestates that he does regular water exercises which have helped him. His activity is limited due to baseline dyspnea on mild exertion from his underlying COPD. He uses oxygen at night. Denies chest pain. No palpitation, dizziness or syncope. Reports compliance with current medical regimen. Denies anybleeding complications. 05/04/2023-on the follow-up visit today, patient reports relatively stable claudication in bilateral calves after walking about half a block. He denies any rest pain or any ischemic foot ulcers. He is opted medical treatment for his symptomatic peripheral artery disease. He has baseline dyspnea on exertion due to underlying COPD. Uses oxygen at night. No chest pain. Reports compliance with current medical regimen. 01/11/2024- on the follow-up visit today, patient reports episodes of chest discomfort with exertion. He has baseline dyspnea on exertion, able to walk less than 1 block before he gets short of breath. He is on supplemental oxygen for chronic respiratory failure from underlying COPD. He has stable left lower extremity claudication , able to walk less than a block before he gets discomfort. Occasional cramping sensation in the legs. No ischemic foot ulcers. Patient was previously on low-dose rivaroxaban for peripheral artery disease, however, he reported hematuria and his rivaroxaban was discontinued. He has been on single antiplatelet treatment with clopidogrel. No recurrent hematuria. Repor ts compliance with other medications. 04/25/2024-patient is here for the follow-up visit after recent cardiac catheterization which showed DYED RAW STOCK BLOWER FEEDER RCA with [id number] collaterals, no significant obstructive disease in the left coronary system. At present, he denies chest pain. He has somewhat limited mobility, uses cane for walking. In a ddition, patient has chronic respiratory failure, and is currently on home O2, and gets short of breath with mild activity. Follows up with pulmonology. Compliant with current medical regimen. Follows up with Nephrology for management of CKD. MEDICAL HISTORY he has a past medical history of Anemia, Arthritis, Asthma, AV block, Carotid stenosis, CKD (chronic kidney disease) stage 3, GFR 30-59 ml/min ([facility]), Claudication ([facility]), COPD (chronic obstructive pulmonary disease) ([facility]), Cough, COVID-19 (05/2020), Cramps of lower extremity, MONTEZ (dyspnea on exertion), Easy bruisability, Empyema (CMS/HCC) ([facility]) (05/2020), Fatigue, GERD (gastroesophageal reflux disease), Hyperkalemia, Hypertension, Irregular heart beat, PAD (peripheral artery disease) ([facility]), Pneumonia (2018), Sleep apnea, SOB (shortness of breath), Vision changes, and Wheezing. He has no past medical history of Delayed emergence from general anesthesia, Hard to intubate, Malignant hyperthermia, Motion sickness, PONV (postoperative nausea and vomiting), or Pseudocholinesterase deficiency. hypertension, history of AV block status post Medtronic pacemaker placement in June 2020, peripheral artery disease involving left lower extremity and carotid arteries, status post left lower extremity intervention; status post right carotid enterectomy; COPD, history of COVID-19 infection. he has a past surgical history that includes Insert / replace / remove pacemaker (06/2020); Hip Arthroplasty (Bilateral); carotid endarerectomyy (Right, 2013); Tonsillectomy; Other surgical history (2019, 2020); Colonoscopy; Hernia repair (2015); and IR Central Line Placement > 5 Years (N/A, 06/19/2021). he Allergies Allergen Reactions Dog Dander Agitation, Chest tightness, Eye irritation, Rash, Shortness of breath and Wheezing House Dust Agitation, Chest tightness, Dizziness, Eye irritation, Headache, Itching, Mental status changes, Rash and Shortness of breath Mold Shortness of breath Perfume Shortness of breath Cat Dander Itching and Other (See comments) Sneezing, watery eyes. Current Outpatient Medications Medication Sig Dispense Refill acetaminophen 500 mg capsule Take 2 capsules (1,000 mg total) by mouth every 6 (six) hours (Patienttaking differently: Take 2 capsules (1,000 mg total) by mouth every 6 (six) hours as needed) 30 tablet albuterol 2.5 mg /3 mL (0.083 %) nebulizer solution Take 3 mL (2.5 mg total) by nebulization as needed albuterol HFA (PROVENTIL HFA,VENTOLIN HFA,PROAIR HFA) 90 mcg/actuation inhaler INHALE 2 PUFFS EVERY4 HOURS BY INHALATION ROUTE NEEDED FOR 30 DAYS. amLODIPine (NORVASC) 10 mg tablet Take 1 tablet (10 mg total) by mouth every morning (Patient taking differently: Take 1 tablet (10 mg total) by mouth nightly) 30 tablet 11 atorvastatin (LIPITOR) 80 mg tablet Take 1 tablet (80 mg total) by mouth daily (Patient taking differently: Take 1 tablet (80 mg total) by mouth nightly) 90 tablet 2 carvediloL (COREG) 25 mg tablet Take 1 tablet (25 mg total) by mouth 2 (two) times a day cefdinir (OMNICEF) 300 mg capsule Take 1 capsule (300 mg total) by mouth 2 (two) times a day cilostazoL (PLETAL) 50 mg tablet Take 1 tablet (50 mg total) by mouth 2 (two) times a day 180 tablet 2 clopidogreL (PLAVIX) 75 mg tablet TAKE 1 TABLET BY MOUTH DAILY 100 tablet 2 doxepin (SINEquan) 25 mg capsule Take 1 capsule (25 mg total) by mouth nightly as needed dupilumab (DUPIXENT) syringe Inject 2 mL (300 mg total) under the skin every 14 (fourteen) days finasteride (PROSCAR) 5 mg tablet Take 1 tablet (5 mg total) by mouth 2 (two) times a day fluticasone propion-salmeteroL (ADVAIR DISKUS) 500-50 mcg/dose diskus inhaler Inhale 1 puff 2 (two)times a day Rinse mouth with water after use. Do not swallow. furosemide (LASIX) 40 mg tablet Take 1 tablet (40 mg total) by mouth daily gabapentin (NEURONTIN) 300 mg capsule Take 1 capsule (300 mg total) by mouth daily as needed guaiFENesin ER (MUCINEX) 600 mg 12 hr tablet Take 2 tablets (1,200 mg total) by mouth 2 (two) timesa day oxygen Administer 2 L/min into each nostril as needed (hypoxia) pantoprazole DR (PROTONIX) 40 mg EC tablet TAKE 1 TABLET BY MOUTH DAILY 100 tablet 2 potassium chloride ER (KLOR-CON) 10 mEq CR tablet Take 1 tablet/capsule (10 mEq total) by mouth daily Spiriva Respimat 2.5 mcg/actuation inhaler INHALE 2 PUFFS BY MOUTH ONCE DAILY tamsulosin (FLOMAX) 0.4 mg extended release capsule Take 2 capsules (0.8 mg total) by mouth daily with dinner traMADoL (ULTRAM) 50 mg tablet Take 1 tablet (50 mg total) by mouth every 6 (six) hours as needed triamcinolone (KENALOG) 0.1 % ointment Apply 1 Application topically as needed No current facility-administered medications for this visit. he family history includes Asthma in his mother; Diabetes in his mother; Heart disease in his father; Hypertension in his father and mother. he reports that he quit smoking about 12 years ago. He has never used smokeless tobacco. Ex-smoker,no alcohol or illicit drugs. Lives alone at present REVIEW OF SYSTEMS General ROS: Positive for fatigue Psychological ROS: negative for - anxiety, depression Ophthalmic ROS: negative for - loss of vision ENT ROS: negative for - sore throat, epistaxis, headaches, nasal congestion Allergy and Immunology ROS: negative for - hives, postnasal drip Hematological and Lymphatic ROS: negative for - overt bleeding problems, bruising Respiratory ROS: Positive for shortness of breath-chronic Cardiovascular ROS: No chest pain, dyspnea on exertion Gastrointestinal ROS: negative for - abdominal pain Endocrine ROS: negative for - hot flashes, polydipsia/polyuria Musculoskeletal ROS: No significant claudication at present Neurological ROS: Positive for gait disturbance, uses cane for walking Dermatological ROS: negative for pruritus, rash LABS AND OTHER DIAGNOSTIC TESTS REVIEWED Lab Results Component Value Date WBC 8.0 01/25/2024 HGB 8.8 (L) 01/25/2024 HCT 30.6 (L) 01/25/2024 MCV 78.5 (L) 01/25/2024 No lab exists for component: LABALBU Lab Results Component Value Date WBC 8.0 01/25/2024 HGB 8.8 (L) 01/25/2024 HCT 30.6 (L) 01/25/2024 MCV 78.5 (L) 01/25/2024 No results found for: CHOL No results found for: HDL No results found for: LDL] No results found for: TRIG Lipids-total cholesterol 122, HDL 50, triglycerides 51, LDL 60. 03/10/2021 Labs-hemoglobin 12.3, potassium 4.6, creatinine 1.91, GFR 35;. 03/24/2021 [facility] EKG-sinus rhythm, left bundle-branch block. 05/13/2021 Carotid duplex-less than 50% stenosis bilateral ICA. 05/27/2021 [facility] SULEMA/Doppler-right SULEMA 0.66, right TBI 0.35. Arterial waveforms are biphasic with brisk systolic upstroke throughout. Left SULEMA 0.81, left SULEMA 0.64. Arterial waveforms are biphasic with brisk systolic upstroke throughout. 05/27/2021 [facility] Venous duplex-no DVT. 07/17/2021 [facility] Echo-Normal left ventricular size. Definity contrast agent used [...] 1.79 cm2. Aortic cusps appear mildly sclerotic. 11/24/2021-Dr. Good Lipids-total cholesterol 161, HDL 65, triglycerides less than 45, LDL 83, glucose 123. 03/17/2022 Peripheral angiogram/intervention-Severe, calcific PAD- A) diffusely calcific and ectatic abdominalaorta; B) left common iliac aneurysm; right common iliac ectasia; mild diffuse disease bilateral external iliac arteries; C) right leg- about 90-95% calcific stenosis distal segment of right common femoral artery involving the origins of right PFA and SFA; high-grade, densely calcific stenosis mid segment of right SFA; about 90% eccentric calcific stenosis popliteal artery; 3 vessel runoff. D) left leg- about 90% focal stenosis proximal segment of left SFA; patent previously placed mid-distal SFA stent with mild ISR; three-vessel left runoff. 03/17/2022 Lipids-total cholesterol 161, HDL 65, triglycerides less than 45, LDL 83, glucose 123. 03/17/2022 MPI-No diagnostic ST changes. Left ventricular ejection fraction is 41 %. There is mild to moderateLV dysfunction. Dyskinesis in the basal inferoseptal segment and basal inferior segment. Myocardialperfusion imaging is abnormal fixed mid inferior defect and basal inferior and basal inferoseptal alethea-infarct ischemia. 04/08/2022-Dr. Mcgovern Lipids-total cholesterol less than 100, HDL 38, triglycerides 71, LDL 46, glucose 107. 05/04/2023 Cardiac catheterization-Severe single-vessel CAD-chronic total occlusion proximal RCA with [id number] collaterals. No significant obstructive disease in the left coronary system. LVEDP 10 mmHg. Systemic hypertension. 01/27/2024 Echo- Normal left ventricular size. Left ventricular hypertrophy with sigmoid hypertrophy of the septum. Normal global left ventricular systolic function. Impaired diastolic relaxation Grade I. Ejection fraction is measured at 55 %. Global Longitudinal Strain is -16 %. Normal RV size and systolic function. Mild left atrial enlargement. Mild mitral annular calcification. Trivial regurgitation of the mitral valve. Aortic cusps appears sclerotic; all 3 cusps not well visualized. Mild aortic stenosis. V max 1.70 m/s. Mean gradient 6 mmHg. Valve area of 2 cm2. Moderate pulmonary hypertension, RVSP 47 mmHg. Mild tricuspid regurgitation.02/01/2024 Lipids-total cholesterol less than 100, HDL 57, triglycerides 64, LDL 30, glucose 108. 04/25/2024 PHYSICAL EXAM Vitals BP 126/62 (BP Location: Right arm, Patient Position: Sitting) Pulse 85 Ht 172.7 cm (5' 8) Wt 83.8 kg (184 lb 11.2 oz) SpO2 91% BMI 28.08 kg/m?? General appearance - alert, no distress, oriented to time, place, person; on supplemental oxygen Mental status - affect appropriate to mood Eyes - extraocular eye movements intact, no pallor Ears - external ears appear normal, hearing grossly normal Nose - normal and patent, on supplemental oxygen Mouth - mucous membranes moist, tongue normal Neck - right neck surgical scar from carotid endarterectomy, bilateral carotid bruits audible, no JVD Chest - diminished breath sounds globally Heart - normal rate, distant heart sounds Abdomen - soft, nontender Neurological - alert, oriented, normal speech, no gross motor deficits Musculoskeletal - no major deformity, no amputations Extremities - no pedal edema, no clubbing or cyanosis; b/l LE varicosities; arm echymoses Skin - no rashes (on the exposed areas), no cyanosis Vascular-bilateral dorsalis pedis pulses are dopplerable; bilateral posterior tibial pulses non dopplerable ASSESSMENT Diagnoses and all orders for this visit: Chronic total occlusion of coronary artery (Primary) History of complete AV block Cardiac pacemaker in situ PAD (peripheral artery disease) ([facility]) Mild aortic stenosis Stage 3b chronic kidney disease (HCC) Chronic respiratory failure with hypoxia, on home O2 therapy (CMS/HCC) ([facility]) History of tobacco abuse PLAN/RECOMMENDATIONS 73 y.o. male with CAD (DYED RAW STOCK BLOWER FEEDER proximal RCA with [id number] collaterals, no significant obstructive disease in the left coronary system from 01/27/2024 cardiac catheterization); hypertension, history of AV block status post Medtronic pacemaker placement in June 2020, peripheral artery disease inv olving left lower extremity and carotid arteries, status post left lower extremity intervention; status post right carotid enterectomy; COPD/chronic respiratory failure on home oxygen at night, history of COVID-19 infection. -stable CAD. DYED RAW STOCK BLOWER FEEDER RCA with [id number] collaterals. LVEF normal. Continue single antiplatelet treatment with clopidogrel; continue high-dose atorvastatin. Current LDL 30. - NSVT on previous pacemaker interrogation. Continue beta-ramona. - patient has known peripheral artery disease and no significant claudication at present. Previous angiogram showed aortoiliac and femoral disease. Vascular surgery was consulted, and patient was anticipated to undergo possible surgical revascularization. Patient declined surgery. At this time, patient would like to pursue medical treatment and daily walking. He uses stationary bike at home. He will let us know if he has any worsening symptoms of claudication. Continue cilostazol that may help improve walking distance. Continue antiplatelet treatment with clopidogrel. Rivaroxaban was discontinued due to hematuria. Continue high-dose atorvastatin. LDL improved to 30. -blood pressure is well controlled with carvedilol, amlodipine. Low-salt diet counseling was done. -periodic pacemaker interrogation. -periodic surveillance echocardiogram for progression of aortic stenosis. Next anticipate echo withDoppler in 2-3 years. - follow-up with Nephrology for management of CKD. - follow up with pulmonology for management of COPD/emphysema. Currently on supplemental oxygen. -counseling was done for heart healthy/low-salt diet, aerobic activity as tolerated. -follow-up in about 12-14 months or sooner if needed. Josiah Lay MD 04/25/24 Voice recognition software was used to complete this document, therefore, electronics commodity manager variances may occur. documented in this encounter Miscellaneous Notes * Addendum Note - Leatha Puri MA - 04/25/2024 1:00 PM CDTAddended by: LEATHA PURI on: 04/25/2024 02:18 PM Modules accepted: Orders documented in this encounter Plan of Treatment Not on file documented as of this encounter Procedures Procedure Name Priority Date/Time Associated Diagnosis Comments POCT LIPID PANEL Routine 04/25/2024 2:17 PM CDT Chronic total occlusion of coronary artery Mild aortic stenosis Hypertension, unspecified type documented in this encounter Results * POCT lipid panel (04/25/2024 2:17 PM CDT) Cholesterol, POC <100 mg/dL Comment:GLU = 108 HDL, POC 57 mg/dL Triglycerides, POC 64 mg/dL LDL Cholesterol POC 30 mg/dL Chol/HDL Ratio, POC N/A Non-HDL Cholesterol, POC N/A mg/dL Cholesterol Total, POC <100 mg/dL Capillary blood 04/25/2024 2 :17 PM CDT Josiah Lay MD POINT OF CARE TEST ORDERABLES Fi nal Result documented in this encounter Visit Diagnoses Diagnosis Chronic total occlusion of coronary artery- Primary History of complete AV block Cardiac pacemaker in situ PAD (peripheral artery disease) (HCC) Unspecified peripheral vascular disease Mild aortic stenosis Aortic valve disorders Stage 3b chronic kidney disease (HCC) Chronic respiratory failure with hypoxia, on home O2 therapy ([facility]/HCC) (HCC) History of tobacco abuse Hypertension, unspecified type documented in this encounter Care Teams Manager Installation Relationship Specialty Start Date End Date Ranulfo Romo DO PCP - General Family Medicine 04/08/22 Daniela Hilario NP Nurse Practitioner Nurse Practitioner 03/26/22 documented as of this encounter
--- OUTSIDE RECORDS SUMMARY | 2024-09-12 15:39 | XMS_ITS | Encounter Summary ---
Author Organization [facility] Healthcare Address [address] [place] [address] Care Team Providers Care Land Use Planner Name Role Phone Daniela Hilario PHYSICIAN/INTERNIST Unavailable [phone] Ranulfo Romo DO Primary Care Provider [phone] Encounter Details Date Type Department Care Team (Latest Contact Info) Description 10/15/2023 5:12 AM POCKETBOOK MAKER - 10/15/2023 11:59 PM POCKETBOOK MAKER Hospital Encounter [facility] Emergency, Room R Discharge Disposition: Discharge to home or self care Social History Tobacco Use Types Packs/Day Years [...] Never 03/22/2022 Personal Safety Answer Date Recorded Getting School Help Needed Not on file 08/03 Sex and Gender Information Value Date Recorded Sex Assigned at Not on file Legal Sex Male 1:43 PM CDT Gender Identity Male 08/12/2022 2:14 PM POCKETBOOK MAKER Sexual Orientation Not on file documented as of this encounter Medications at Time of Discharge acetaminophen 500 mg capsule Take 2 capsules (1,000 mg total) by mouth every 6 (six) hours 30 tablet 06/23/2021 albuterol 2.5 mg /3 mL (0.083 %) nebulizer solution Take 3 mL (2.5 mg total) by nebulization as needed 05/05/2021 albuterol HFA (PROVENTIL HFA,VENTOLIN HFA,PROAIR HFA) 90 mcg/actuation inhaler INHALE 2 PUFFS EVERY 4 HOURS BY INHALATION ROUTE NEEDED FOR 30 DAYS. 04/06/2021 carvediloL (COREG) 25 mg tablet Take 1 tablet (25 mg total) by mouth 2 (two) times a day 04/09/2021 doxepin (SINEquan) 25 mg capsule Take 1 capsule (25 mg total) by mouth nightly as needed 03/10/2021 dupilumab (DUPIXENT) syringe Inject 2 mL (300 mg total) under the skin every 14 (fourteen) days finasteride (PROSCAR) 5 mg tablet Take 1 tablet (5 mg total) by mouth 2 (two) times a day 02/13/2022 furosemide (LASIX) 40 mg tabletIndications :per md advisement Take 1 tablet (40 mg total) by mouth daily gabapentin (NEURONTIN) 300 mg capsule Take 1 capsule (300 mg total) by mouth daily as needed oxygenIndications :Dyspnea Administer 2 L/min into each nostril as needed (hypoxia) 06/24/2021 potassium chloride ER (KLOR-CON) 10 mEq CR tabletIndications :hypokalemia Take 1 tablet/capsule (10 mEq total) by mouth daily tamsulosin (FLOMAX) 0.4 mg extended release capsule Take 2 capsules (0.8 mg total) by mouth daily with dinner 06/23/2021 traMADoL (ULTRAM) 50 mg tablet Take 1 tablet (50 mg total) by mouth every 6 (six) hours as needed 04/08/2021 triamcinolone (KENALOG) 0.1 % ointment Apply 1 Application topically as needed amLODIPine (NORVASC) 5 mg tablet Take 1 tablet (5 mg total) by mouth every morning 90 tablet 2 10/04/2023 4 aspirin 81 mg enteric coated tablet Take 1 tablet (81 mg total) by mouth daily 30 tablet 11 05/04/2023 4 atorvastatin (LIPITOR) 80 mg tablet Take 1 tablet (80 mg total) by mouth daily 90 tablet 2 09/08/2023 4 cephalexin (KEFLEX) 500 mg capsule TAKE 1 CAPSULE BY MOUTH EVERY 8 HOURS 01/07/2022 4 cetirizine 10 mg capsule Take by mouth 4 cilostazoL (PLETAL) 50 mg tabletIndications :Intermittent Claudication Take 1 tablet (50 mg total) by mouth 2 (two) times a day 180 tablet 2 09/08/2023 4 cloNIDine (CATAPRES) 0.1 mg tablet Take 0.1 mg by mouth daily 4 clopidogreL (PLAVIX) 75 mg tablet Take 1 tablet (75 mg total) by mouth daily 90 tablet 2 09/08/2023 4 fluticasone propion-salmetero L (ADVAIR DISKUS) 500-50 mcg/dose diskus inhaler Inhale 1 puff 2 (two) times a day 10/06/2021 4 melatonin 5 mg capsule Take by mouth 4 multivitamin capsule Take 1 capsule by mouth daily [address] (PROTONIX) 40 mg EC tablet Take 1 tablet (40 mg total) by mouth daily 90 tablet 2 09/08/2023 4 Spiriva Respimat 2.5 mcg/actuation inhaler INHALE 2 PUFFS BY MOUTH ONCE DAILY 04/21/2021 5 documented as of this encounter Discharge Disposition Disposition Code Departure Means Destination Discharge to home or self care documented in this encounter Plan of Treatment Not on file documented as of this encounter Visit Diagnoses Not on filedocumented in this encounter Care Teams Land Use Planner Relationship Specialty Start Date End Date Ranulfo Romo DO PCP - General Family Medicine 04/08/22 Daniela Hilario NP Nurse Practitioner Nurse Practitioner 03/26/22 documented as of this encounter
--- OUTSIDE RECORDS SUMMARY | 2024-09-12 15:39 | XMS_ITS | Encounter Summary ---
Author Organization [facility] Healthcare Address [address] [place] [address] Care Team Providers Care Associate Director Of Development Name Role Phone Daniela Hilario UNDERWRITER SOLICITATION DIRECTOR Unavailable [phone] Ranulfo Romo DO Primary Care Provider [phone] Encounter Details Date Type Department Care Team (Late st Contact Info) Description 10/04/2023 Telephone [facility] Medical Group Cardiology [address] [place] [address] Josiah Lay MD [address] [id number] Social History Tobacco Use Types Packs/Day Years [...] CDT Gender Identity Male 08/12/2022 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 ITION ASSOCIATE * Telephone Encounter - Tiffanie Hawthorne - 10/04/2023 10:46 AM CST Pt returned call for Bernice regarding medication. States he is currently taking amLODIPine (NORVASC)5 mg tablet. Pt also states he switched to [facility] due to cheaper refills. Contact:[phone] ITION ASSOCIATE ITION ASSOCIATE documented in this encounter Plan of Treatment Not on file documented as of this encounter Visit Diagnoses Not on filedocumented in this encounter Discontinued Medications Medication Sig Discontinue Reason Start Date End Da te amLODIPine (NORVASC) 5 mg tablet TAKE 1 TABLET BY MOUTH EVERY MORNING Reorder 03/01/2023 10/04/2023 documented as of this encounter Care Teams Associate Director Of Development Relationship Specialty Start Date End Date Ranulfo Romo DO PCP - General Family Medicine 04/08/22 Daniela Hilario NP Nurse Practitioner Nurse Practitioner 03/26/22 documented as of this encounter
--- OUTSIDE RECORDS SUMMARY | 2024-09-12 15:39 | XMS_ITS | Encounter Summary ---
Author Organization [facility] Address [address] [place] [address] Care Team Providers Care Dental Technician Name Role Phone Daniela Hilario JAVA XML DEVELOPER Unavailable [phone] Ranulfo Romo DO Primary Care Provider [phone] Reason for Referral * Cardiology (Routine) - Closed Specialty Diagnoses / Procedures [facility] Referred To Contact Cardiology Diagnoses History of complete AV block Procedures DEVICE CHECK - IN OFFICE Josiah Lay MD [address] [address] Phone: tel: fax: [facility] Medical Group Referral ID Status Reason Start Date Expiration Date Visits Re quested Visits Authorized [id number] Closed 08/04/2023 09/02/2024 1 1 UCTION HONING MACHINE OPERATOR * Cardiology (Routine) - Closed Specialty Diagnoses / Procedures [facility] Referred To Contact Cardiology Diagnoses History of complete AV block Procedures DEVICE CHECK - IN OFFICE Josiah Lay MD [address] [facility] [address] [place] [address] Phone: tel: fax: [facility] Group Referral ID Status Reason Start Date Expiration Date Visits Re quested Visits Authorized [id number] Closed 08/04/2023 09/02/2024 1 1 UCTION HONING MACHINE OPERATOR * Cardiology (Routine) - Authorized Specialty Diagnoses / Procedures Referred By Contac t Referred To Contact Cardiology Diagnoses History of complete AV block Procedures DEVICE CHECK - REMOTE Josiah Lay MD [address] [address] Phone: tel: fax: [facility] Group Referral ID Status Reason Start Date Expiration Date V isits Requested Visits Authorized [id number] Authorized 08/04/2023 02/02/2025 1 1 UCTION HONING MACHINE OPERATOR * Cardiology (Routine) - Closed Specialty Diagnoses / Procedures Referred By Contmallorie t Referred To Contact Cardiology Diagnoses History of complete AV block Procedures DEVICE CHECK - REMOTE Josiah Lay MD [address] [address] Phone: tel: fax: [facility] Medical [facility] Referral ID Status Reason Start Date Expiration Date Visits Re quested Visits Authorized [id number] Closed 08/04/2023 02/02/2025 1 1 UCTION HONING MACHINE OPERATOR * Cardiology (Routine) - Closed Specialty Diagnoses / Procedures Referred By Contmallorie t Referred To Contact Cardiology Diagnoses History of complete AV block Procedures DEVICE CHECK - REMOTE Josiah Lay MD [address] [address] Phone: tel: fax: [facility] Medical Group Referral ID Status Reason Start Date Expiration Date Visits Re quested Visits Authorized [id number] Closed 08/04/2023 02/02/2025 1 1 UCTION HONING MACHINE OPERATOR Encounter Details Date Type Department Care Team (Late st Contact Info) Description 08/04/2023 Orders Only [facility] Medical Group Cardiology [address] [place] [phone] Josiah Lay MD [address] [facility] [place] [id number] History of complete AV block (Primary Dx) Social History Tobacco Use Types [...] CDT Gender Identity Male 08/12/2022 2:14 PM PRODUCTION HONING MACHINE OPERATOR Sexual Orientation Not on file documented as of this encounter Plan of Treatment Scheduled Orders Name Type Priority Associated Diagnoses Orde r Schedule DEVICE CHECK - REMOTE Cardiac Services Routine History of complete AV block Expected: 05/03/2024, Expires: 08/21/2030 DEVICE CHECK - IN OFFICE Cardiac Services Routine History of complete AV block Expected: 05/14/2024, Expires: 08/21/2030 DEVICE CHECK - IN OFFICE Cardiac Services Routine History of complete AV block Expected: 05/20/2025, Expires: 08/21/2030 documented as of this encounter Results * DEVICE CHECK - REMOTE (07/18/2024 12:06 PM PRODUCTION HONING MACHINE OPERATOR) Anatomical Region Laterality Modality Other Narrative 09/12/2024 8:48 AM PRODUCTION HONING MACHINE OPERATOR Medtronic [place] Dual Pacemaker. Dx; Second Degree AVB, Symptomatic Bradycardia. DOI 05/02/2019-Dr Zenia Good ([place]). Carelink remote. Routine DDDR Pacemaker Remote. Transmission attached. Battery status: ??2.94 V, 3.3 years remaining battery life to HERMELINDO. Stable lead impedances, pacing and sensing thresholds. Presenting rhythm: ??A sensed/V paced AP-14.7%, CYTOLOGY LABORATORY MANAGER-99.9% No AT/AF episodes noted. No Ventricular high rate episodes detected. Medications: ??Plavix 75 mg, carvedilol 25 mg, amlodipine 10 mg See scanned report. Office pacemaker follow up: ??6 months [facility] remote f/u 10/24/24. Kobe Soto RN Josiah Lay MD CV CARDIAC SERVICES PROCEDURES F inal Result * DEVICE CHECK - REMOTE (04/12/2024 9:32 AM CDT) Anatomical Region Laterality Modality Other Narrative 04/17/2024 9:09 AM CDT Medtronic [place] Dual Pacemaker. Dx; Second Degree AVB, Symptomatic Bradycardia. DOI 05/02/2019-Dr Zenia Good ([place]). Carelink remote. Routine DDDR Pacemaker Remote. Transmission attached. Battery status: 2.95 V, 3.6 years remaining battery life to HERMELINDO. Stable lead impedances, pacing and sensing thresholds. Presenting rhythm: /CYTOLOGY LABORATORY MANAGER AP- 19.2%, CYTOLOGY LABORATORY MANAGER- 99.8% No AT/AF episodes noted No Ventricular high rate episodes detected. Medications: Plavix, carvedilol See scanned report. Office pacemaker follow up: 9 months [facility] remote f/u 07/18/24. Kobe Soto RN Josiah Lay MD CV CARDIAC SERVICES PROCEDURES F inal Result documented in this encounter Visit Diagnoses Diagnosis History of complete AV block- Primary Cardiac pacemaker in situ- Primary History of complete AV block Symptomatic bradycardia Symptomatic bradycardia- Primary History of complete AV block Cardiac pacemaker in situ documented in this encounter Care Teams Dental Technician Relationship Specialty Start Date End Date Ranulfo Romo DO PCP - General Family Medicine 04/08/22 Daniela Hilario NP Nurse Practitioner Nurse Practitioner 03/26/22 documented as of this encounter
--- OUTSIDE RECORDS SUMMARY | 2024-09-12 15:39 | XMS_ITS | Encounter Summary ---
Author Organization [facility] Healthcare Address [address] [place] [address] Care Team Providers Care Assignment Officer Name Role Phone Daniela Hilario BUILDING PRINCIPAL Unavailable [phone] Ranulfo Romo DO Primary Care Provider [phone] Encounter Details Date Type Department Care Team (Late st Contact Info) Description 11/09/2023 Telephone [facility] Medical Group Cardiology [address] [place] [address] Josiah Lay MD [address] [id number] Social History Tobacco Use Types Packs/Day Years [...] CDT Gender Identity Male 08/12/2022 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 Message below reviewed. Pt is still having cramping and pain so he would like to remain on cilostazol. He will stop asa. Pt aware to keep us updated and call back for continued bleeding issues. * Telephone Encounter - Kiarra Franco NP - 11/10/2023 11:02 AM CDT It seems appropriate to wait until next week for Dr. Lay's response. * Telephone Encounter - Molly Emerson RN - 11/09/2023 11:46 AM CDT See note below. Spoke with pt. He does not know the reason for the bladder bleeding. He was told probably from the AC. He did not have any tumors hat he was aware of. His bladder was cauterized and he is doing much better. No further bleeding. He has continued to take all 3 blood thinners. His PCP wanted him to reach out to see if he needed all 3. He is on: Asa 81 mg once daily Cilostazol 25 mg BID Plavix 75 mg once daily ( Xarelto dc'd previously due to cost and pt back to plavix.) Pt sees Urologist on November 22 and he will try to clarify cause of bleeding. Please advise. CT- sending to you in DK absence in case you feel he should stop any of the 3 AC before next week when DK returns. Thank you. * Telephone Encounter - Molly Emerson RN - 11/09/2023 8:34 AM CDT Call placed to pt to discuss my chart message below and discuss his current AC meds. Per last OV note 9.13.23 continue antiplatelet treatment and anticoagulation with low-dose rivaroxaban 2.5 mg p.o. b.i.d..Will change clopidogrel to aspirin 81 mg p.o. daily. * Telephone Encounter - Molly Emerson RN - 11/09/2023 8:[address] Lay, On 10/17/2023 I was admitted to [facility] for bleeding and blood clots clogging up my penis.I had been urinating earlier in the day shooting out blood and clots. By 3 am I could no longer urinate and pressure was building up so I went to the Emergency room. The Emergency room staff could not get the blood and clots stopped. About [address] Rowe from [facility] and his crew performed surgery on my bladder to stop the bleeding. They cauterized the bleeding areas and cleaned out theclots. All is good now, no bleeding or clots. I use a caterer nightly to insure very little urine left in my bladder all night. I bring this to your attention because during my primary care check up Dr. Romo brought up he wassurprised at the amount of clotting since I am on blood thinners. He asked me to inform you of thisoccurrence and if we need to change blood thinner so that I don't clot? My next appointment is 10 January, is there a need to move me up in the schedule? documented in this encounter Plan of Treatment Not on file documented as of this encounter Visit Diagnoses Not on filedocumented in this encounter Discontinued Medications Medication Sig Discontinue Reason Start Date End Da te aspirin 81 mg enteric coated tablet Take 1 tablet (81 mg total) by mouth daily 05/04/2023 11/14/2023 documented as of this encounter Care Teams Assignment Officer Relationship Specialty Start Date End Date Ranulfo Romo DO PCP - General Family Medicine 04/08/22 Daniela Hilario NP Nurse Practitioner Nurse Practitioner 03/26/22 documented as of this encounter
--- OUTSIDE RECORDS SUMMARY | 2024-09-12 15:39 | XMS_ITS | Encounter Summary ---
Author Organization [facility] Healthcare Address [address] [place] [address] Care Team Providers Care Head Refrigeration Engineer Name Role Phone Daniela Hilario SAFETY SEALER Unavailable [phone] Ranulfo Romo DO Primary Care Provider [phone] Reason for Visit * Cardiology (Routine) - Closed Specialty Diagnoses / Procedures Referred By Jovany carver Referred To Contact Cardiology Diagnoses History of complete AV block Procedures DEVICE CHECK - REMOTE Josiah Lay MD [address] [place] [address] Phone: tel: fax: [facility] Medical Group Referral ID Status Reason Start Date Expiration Date Visits Re quested Visits Authorized [id number] Closed 08/04/2023 02/02/2025 1 1 Encounter Details Date Type Department Care Team (Latest Contact Info) Description 04/11/2024 9:45 AM CDT Ancillary Procedure 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 Dx; Second Degree AVB, Symptomatic Bradycardia. DOI 05/02/2019-Dr Zenia Good ([place]). Carelink remote. Routine DDDR Pacemaker Remote. Transmission attached. Battery status: 2.95 V, 3.6 years remaining battery life to HERMELINDO. Stable lead impedances, pacing and sensing thresholds. Presenting rhythm: /VALVE SEATER OPERATOR AP- 19.2%, VALVE SEATER OPERATOR- 99.8% No AT/AF episodes noted No Ventricular high rate episodes detected. Medications: Plavix, carvedilol See scanned report. Office pacemaker follow up: 9 months [facility] remote f/u 07/18/24. Kobe Soto, MARY us Josiah Lay MD CV CARDIAC SERVICES PROCEDURES F inal Result documented in this encounter Visit Diagnoses Diagnosis Cardiac pacemaker in situ- Primary History of complete AV block Symptomatic bradycardia documented in this encounter Care Teams Head Refrigeration Engineer Relationship Specialty Start Date End Date Ranulfo Romo DO PCP - General Family Medicine 04/08/22 Daniela Hilario NP Nurse Practitioner Nurse Practitioner 03/26/22 documented as of this encounter
--- OUTSIDE RECORDS SUMMARY | 2024-09-12 15:39 | XMS_ITS | Encounter Summary ---
Author Organization [facility] Healthcare Address [address] [place] [address] Care Team Providers Care Car Pusher Name Role Phone Daniela Hilario SIDE BOSS Unavailable [phone] Ranulfo Romo DO Primary Care Provider [phone] Reason for Visit * Cardiology (Routine) - Closed Specialty Diagnoses / Procedures Referred By Jovany carver Referred To Contact Diagnoses History of complete AV block Procedures DEVICE CHECK - REMOTE Josiah Lay MD [address] [place] [address] Phone: tel: fax: [facility] Medical Group Referral ID Status Reason Start Date Expiration Date Visits Re quested Visits Authorized [id number] Closed 02/17/2022 08/19/2023 1 1 Encounter Details Date Type Department Care Team (Latest Contact Info) Description 08/03/2023 9:15 AM TRIAL JUDGE Ancillary Procedure [facility] Medical [facility] Cardiology [address] [place] [phone] Cardiac pacemaker in situ [Z95.0] (Primary Dx); History of complete AV block Social History Tobacco Use Types Packs/Day Years [...] CDT Gender Identity Male 08/12/2022 2:14 PM TRIAL JUDGE Sexual Orientation Not on file documented as of this encounter Plan of Treatment Not on file documented as of this encounter Procedures Procedure Name Priority Date/Time Associated Diagnosis Comments DEVICE CHECK - REMOTE Routine 08/04/2023 3:43 PM TRIAL JUDGE History of complete AV block documented in this encounter Results * DEVICE CHECK - REMOTE (08/04/2023 3:43 PM TRIAL JUDGE) Anatomical Region Laterality Modality Other Narrative 09/20/2023 12:11 PM TRIAL JUDGE Medtronic [place] Dual Pacemaker. Dx; Second Degree AVB, Symptomatic Bradycardia. DOI 05/02/2019-Dr Zenia Good ([place]). Carelink remote. Routine Pacemaker remote. Normal device function. Battery function-2.96V, 5.2 years remaining battery life to HERMELINDO. Appropriate lead measurements. Presenting rhythm-ASVP. AP-5.7%, INTERN-99.9%. No Atrial high rate episodes noted. No Ventricular high rate episodes noted. ?? Medications; Plavix, Coreg. See scanned report. [facility]link remote f/u 11/09/2023. Samia José, MARY Josiah Lay MD CV CARDIAC SERVICES PROCEDURES F inal Result documented in this encounter Visit Diagnoses Diagnosis Cardiac pacemaker in situ [Z95.0]- Primary Cardiac pacemaker in situ History of complete AV block documented in this encounter Care Teams Car Pusher Relationship Specialty Start Date End Date Ranulfo Romo DO PCP - General Family Medicine 04/08/22 Daniela Hilario NP Nurse Practitioner Nurse Practitioner 03/26/22 documented as of this encounter
--- OUTSIDE RECORDS SUMMARY | 2024-09-12 15:39 | XMS_ITS | Encounter Summary ---
Author Organization [facility] Healthcare Address [address] [place] [address] Care Team Providers Care Transportation Specialist Name Role Phone Daniela Hilario MECHANICAL MAINTENANCE SUPERVISOR Unavailable [phone] Ranulfo Romo DO Primary Care Provider [phone] Reason for Visit * Cardiology (Routine) - Closed Specialty Diagnoses / Procedures Referred By Jovany carver Referred To Contact Cardiology Diagnoses History of complete AV block Procedures DEVICE CHECK - REMOTE Josiah Lay MD [address] [place] [id number] Phone: tel: fax: [facility] Medical Group Referral ID Status Reason Start Date Expiration Date Visits Re quested Visits Authorized [id number] Closed 08/04/2023 02/02/2025 1 1 Encounter Details Date Type Department Care Team (Latest Contact Info) Description 07/18/2024 8:00 AM MANAGER MANAGING Ancillary Procedure [facility] Medical [facility] Cardiology [address] [place] [id number] Symptomatic bradycardia (Primary Dx); History of complete AV block; Cardiac pacemaker in situ Social History Tobacco Use Types Packs/Day Years [...] CDT Gender Identity Male 08/12/2022 2:14 PM MANAGER MANAGING Sexual Orientation Not on file documented as of this encounter Plan of Treatment Not on file documented as of this encounter Procedures Procedure Name Priority Date/Time Associated Diagnosis Comments DEVICE CHECK - REMOTE Routine 07/18/2024 12:06 PM MANAGER MANAGING History of complete AV block documented in this encounter Results * DEVICE CHECK - REMOTE (07/18/2024 12:06 PM MANAGER MANAGING) Anatomical Region Laterality Modality Other Narrative 09/12/2024 8:48 AM MANAGER MANAGING Med[employer]onic Eugenie Dual Pacemaker. Dx; Second Degree AVB, Symptomatic Bradycardia. DOI 05/02/2019-Dr Zenia Good ([place]). [facility] remote. Routine DDDR Pacemaker Remote. Transmission attached. Battery status: ??2.94 V, 3.3 years remaining battery life to HERMELINDO. Stable lead impedances, pacing and sensing thresholds. Presenting rhythm: ??A sensed/V paced AP-14.7%, CIGARET[employer] P[employer]ER-99.9% No AT/AF episodes noted. No Ventricular high rate episodes detected. Medications: ??Plavix 75 mg, carvedilol 25 mg, amlodipine 10 mg See scanned report. Office pacemaker follow up: ??6 months [facility] remote f/u 10/24/24. Kobe Soto, MARY us Josiah Lay MD [facility] PROCEDURES F inal Result documented in this encounter Visit Diagnoses Diagnosis Symptomatic bradycardia- Primary History of complete AV block Cardiac pacemaker in situ documented in this encounter Care Teams Transportation Specialist Relationship Specialty Start Date End Date Ranulfo Romo DO PCP - General Family Medicine 04/08/22 Daniela Hilario MECHANICAL MAINTENANCE SUPERVISOR Nurse Practitioner Nurse Practitioner 03/26/22 documented as of this encounter
--- OUTSIDE RECORDS SUMMARY | 2024-09-12 15:39 | XMS_ITS | Encounter Summary ---
Author Organization [facility] Healthcare Address [address] [place] [address] Care Team Providers Care Neck Skewer Name Role Phone Daniela Hilario BEER MERCHANT Unavailable [phone] Ranulfo Romo DO Primary Care Provider [phone] Reason for Visit * Auth/Cert Specialty Diagnoses / Procedures Referred By Contac t Referred To Contact Diagnoses CKD (chronic kidney disease) stage 4, GFR 15-29 ml/min (CMS/HCC) (HCC) Angina pectoris, unstable (CMS/HCC) (HCC) Abnormal stress test CKD (chronic kidney disease) stage 4, GFR 15-29 ml/min (CMS/HCC) (HCC) [N18.4] Angina pectoris, unstable (CMS/HCC) (HCC) [I20.0] Abnormal stress test [R94.39] Procedures LEFT HEART CATHETERIZATION WITH CORONARY ANGIOGRAPHY AND WITH OR WITHOUT LEFT VENTRICULOGRAM [id number] Referral ID Status Reason Start Date Expiration Date Visits Re quested Visits Authorized [id number] 1 1 Encounter Details Date Type Department Care Team (Latest Contact Info) Description 01/27/2024 7:55 AM CDT - 01/27/2024 3:32 PM CDT Hospital Encounter [facility] [address] [place], [place] [id number] Josiah Lay MD [address] [address] CKD (chronic kidney disease) stage 4, GFR 15-29 ml/min (CMS/HCC) (HCC); Angina pectoris, unstable (CMS/HCC) (HCC); Abnormal stress test Discharge Disposition: Discharge to home or self care Social History Tobacco Use Types Packs/Day Years Used Date Smoking Tobacco: Former Cigarettes Q uit: 08/22/2009 Smokeless Tobacco: Never Tobacco Cessation:Counseling Given: Not Answered AUDIT-C Answer Date Recorded Frequency of Alcohol [...] CDT Gender Identity Male 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 Sexual Orientation Not on file documented as of this encounter Last Filed Vital Signs Vital Sign Reading Time Taken Comments Blood Pressure 138/63 01/27/2024 3:02 PM CDT Pulse 71 01/27/2024 3:09 PM CDT Temperature 36.6 ??C (97.8 ??F) 01/27/2024 8:49 AM CD T Respiratory Rate 24 01/27/2024 8:49 AM CDT Oxygen Saturation 100% 01/27/2024 3:08 PM CDT Inhaled Oxygen Concentration - - Weight - - Height - - Body Mass Index - - documented in this encounter Discharge Instructions * Discharge Instructions* Roxanna Hooper RN - 01/27/2024 1:46 PM CDT Moderate Sedation WHAT YOU NEED TO KNOW: Moderate sedation, or conscious sedation, is medicine used during procedures to help you feel relaxed and calm. You will be awake and able to follow directions without anxiety or pain. You will remember little to none of the procedure. You may feel tired, weak, or unsteady on your feet after you get sedation. You may also have trouble concentrating or short-term memory loss. These symptoms should go away in 24 hours or less. DISCHARGE INSTRUCTIONS: Call 911 or have someone else call for any of the following: You have sudden trouble breathing. You cannot be woken. Seek care immediately if: You have a severe headache or dizziness. Your heart is beating faster than usual. Contact your healthcare provider if: You have a fever over 100*F You have nausea or are vomiting for more than 8 hours after the procedure. Your skin is itchy, swollen, or you have a rash. You have questions or concerns about your condition or care. Self-care: Have someone stay with you for 24 hours. This person can drive you to errands and help you do things around the house. This person can also watch for problems. Rest and do quiet activities. Stand up slowly to prevent dizziness and falls. Take short walks around the house with another person. Do not drive or use dangerous machines or tools for 48 hours. You may injure yourself or others. Examples include a lawnmower, saw, or drill. Do not make important decisions for 24 hours. For example, do not sign important papers or invest money. Drink liquids as directed. Liquids help flush the sedation medicine out of your body. Ask how much liquid to drink each day and which liquids are best for you. Eat small, frequent meals to prevent nausea and vomiting. Start with clear liquids such as juice orbroth. If you do not vomit after clear liquids, you can eat your usual foods. Do not drink alcohol or take medicines that make you drowsy. This includes medicines that help yousleep and anxiety medicines. Ask your healthcare provider if it is safe for you to take pain medicine. Follow up with your healthcare provider as directed: Write down your questions so you remember to ask them during your visits. Activity: - No heavy lifting (over 5 pounds) for 1 week or as directed by your rn integrity. - No driving for 2 days after sheath removal. - No strenuous activity with affected leg for one week (i.e. Jogging, swimming, running, raking, shoveling snow or mowing lawn). - No exercising or excessive use of stairs for 1 week. Puncture Site: - Remove dressing next day. - Wash with soap and water daily in shower (to prevent infection, a shower is preferred to a tub bath for at least a week). - Do not apply any creams or lotions to puncture site. What to watch for: - Increased bruising - Swelling - Temperature greater than 100 degrees - Redness, drainage, or foul odor at puncture site - Pain that will not go away You may develop scar tissue at the puncture site. This is normal and will feel like a small lump under the skin. You may feel this bump for several days. If any of the above occur or you have any questions, please contact your Physician. documented in this encounter Medications at Time [...] (1,200 mg total) by mouth 2 (two) times a day oxygenIndications :Dyspnea Administer 2 L/min into each [...] 1 Application topically as needed amLODIPine (NORVASC) 10 mg tablet Take 1 tablet (10 mg total) by mouth every morning 30 tablet 11 01/11/2024 4 atorvastatin (LIPITOR) 80 mg tablet Take 1 tablet (80 mg total) by mouth daily 90 tablet 2 09/08/2023 4 cefdinir (OMNICEF) 300 mg capsule Take 1 capsule (300 mg total) by mouth 2 (two) times a day 12/20/2023 5 cilostazoL (PLETAL) 50 mg tabletIndications :Intermittent Claudication Take 1 tablet (50 mg total) by mouth 2 (two) times a day 180 tablet 2 09/08/2023 4 clopidogreL (PLAVIX) 75 mg tablet Take 1 tablet (75 mg total) by mouth daily 90 tablet 2 09/08/2023 4 fluticasone propion-salmetero L (ADVAIR DISKUS) 500-50 mcg/dose diskus inhaler Inhale 1 puff 2 (two) times a day Rinse mouth with water after use. Do not swallow. [address] (PROTONIX) 40 mg EC tablet Take 1 tablet (40 mg total) by mouth daily 90 tablet 2 09/08/2023 4 Spiriva Respimat 2.5 mcg/actuation inhaler INHALE 2 PUFFS BY MOUTH ONCE DAILY 04/21/2021 5 documented as of this encounter Discharge Disposition Disposition Code Departure Means Destination Comment s Discharge to home or self care documented in this encounter H&P Notes * Josiah Lay MD - 01/27/2024 8:42 AM CDT Plan of Care : Based on the above findings, I consider Freddy Hill to be an acceptable risk for : Procedure(s): LEFT HEART CATHETERIZATION WITH CORONARY ANGIOGRAPHY AND WITH OR WITHOUT LEFT VENTRICULOGRAM [id number] Source Note - Josiah Lay MD - 01/11/2024 1:30 PM CDT [facility] 01/11/2024 CHIEF COMPLAINT Cardiovascular management HPI Freddy Hill [...] to local area in October 2020 from [place], [place]. Patient has extensive cardiovascular history. His [...] placement. He denies any history of clinical MA, angina. At present, patient has dyspnea on [...] routine follow-up visit. He was hospitalized at [facility] in June 2021 with worsening shortness of [...] medical regimen. Patient is on home oxygen. 12/30/[id number] visit today, patient reports worsening discomfort in [...] antiplatelet treatment with clopidogrel. No recurrent hematuria. Reports compliance with other medications. MEDICAL HISTORY he has a past medical history of Anemia, Arthritis, Asthma, AV block, Carotid stenosis, CKD (chronic kidney disease) stage 3, GFR 30-59 ml/min ([facility]), Claudication ([facility]), COPD (chronic obstructive pulmonary disease) ([facility]), Cough, COVID-19 (05/2020), Cramps of lower extremity, Easy bruisability, Empyema ([facility]/HCC) ([facility]) (05/2020), Fatigue, GERD (gastroesophageal reflux disease), Hyperkalemia, Hypertension, Irregular heart beat, PAD (peripheral artery disease) ([facility]), Pneumonia (2018), Sleep apnea, SOB (shortness of breath), Vision changes, and Wheezing. He has no past medical history of Delayed emergence from general anesthesia, Hard to intubate, Malignant hyperthermia, PONV (postoperative nausea and vomiting), or Pseudocholinesterase [...] Placement > 5 Years (N/A, 06/19/2021). he No Known Allergies Current Outpatient Medications Medication Sig Dispense Refill acetaminophen 500 mg capsule Take 2 capsules (1,000 mg total) by mouth every 6 (six) hours 30 tablet albuterol 2.5 mg /3 mL (0.083 %) nebulizer solution INHALE 3 ML 3 TIMES A DAY BY NEBULIZATION ROUTEFOR 30 DAYS. albuterol HFA (PROVENTIL HFA,VENTOLIN HFA,PROAIR HFA) 90 mcg/actuation inhaler INHALE 2 PUFFS EVERY4 HOURS BY INHALATION ROUTE NEEDED FOR 30 DAYS. atorvastatin (LIPITOR) 80 mg tablet Take 1 tablet (80 mg total) by mouth daily 90 tablet 2 carvediloL (COREG) 25 mg tablet Take 1.5 tablets (37.5 mg total) by mouth 2 (two) times a day cephalexin (KEFLEX) 500 mg capsule TAKE 1 CAPSULE BY MOUTH EVERY 8 HOURS cetirizine 10 mg capsule Take by mouth cilostazoL (PLETAL) 50 mg tablet Take 1 tablet (50 mg total) by mouth 2 (two) times a day 180 tablet 2 clopidogreL (PLAVIX) 75 mg tablet Take 1 tablet (75 mg total) by mouth daily 90 tablet 2 doxepin (SINEquan) 25 mg capsule Take 1 capsule (25 mg total) by mouth nightly dupilumab (DUPIXENT) syringe Inject 2 mL (300 mg total) under the skin every 14 (fourteen) days finasteride (PROSCAR) 5 mg tablet Take 1 tablet (5 mg total) by mouth daily fluticasone propion-salmeteroL (ADVAIR DISKUS) 500-50 mcg/dose diskus inhaler Inhale 1 puff 2 (two)times a day furosemide (LASIX) 40 mg tablet Take 1 tablet (40 mg total) by mouth daily gabapentin (NEURONTIN) 300 mg capsule Take 1 capsule (300 mg total) by mouth daily as needed multivitamin capsule Take 1 capsule by mouth daily oxygen Administer 3 L/min into each nostril as needed (hypoxia). Indications: trouble breathing pantoprazole DR (PROTONIX) 40 mg EC tablet Take 1 tablet (40 mg total) by mouth daily 90 tablet 2 potassium chloride ER (KLOR-CON) 10 [...] needed triamcinolone (KENALOG) 0.1 % ointment Apply topically amLODIPine (NORVASC) 10 mg tablet Take 1 tablet (10 mg total) by mouth every morning 30 tablet 11 melatonin 5 mg capsule Take by mouth (Patient not taking: Reported on 05/04/2023) No current facility-administered medications for this visit. he family history includes Asthma in his mother; Diabetes in his mother; Heart disease in his father; Hypertension in his father and mother. he reports that he quit smoking about 12 years ago. He has never used smokeless tobacco. Ex-smoker,no alcohol or illicit drugs. Lives with his family. REVIEW OF SYSTEMS General ROS: Positive for fatigue Psychological ROS: negative for - anxiety, depression Ophthalmic ROS: negative for - loss of vision ENT ROS: negative for - sore throat, epistaxis, headaches, nasal congestion Allergy and Immunology ROS: negative for - hives, postnasal drip Hematological and Lymphatic ROS: negative for - overt bleeding problems, bruising Respiratory ROS: Positive for shortness of breath Cardiovascular ROS: positive for chest pain, positive for chronic shortness of breath after walkingless than 1 block Gastrointestinal ROS: negative for - abdominal pain Endocrine ROS: negative for - hot flashes, polydipsia/polyuria Musculoskeletal ROS: left calf claudication Neurological ROS: negative for - gait disturbance, weakness Dermatological ROS: negative for pruritus, rash LABS AND OTHER DIAGNOSTIC TESTS REVIEWED Lab Results Component Value Date WBC 8.5 02/26/2022 HGB 11.0 (L) 02/26/2022 HCT 35.6 (L) 02/26/2022 MCV 85.2 02/26/2022 No lab exists for component: LABALBU Lab Results Component Value Date WBC 8.5 02/26/2022 HGB 11.0 (L) 02/26/2022 HCT 35.6 (L) 02/26/2022 MCV 85.2 02/26/2022 No results found for: CHOL No results found for: HDL No results found for: LDL] No results found for: TRIG Lipids-total cholesterol 122, HDL 50, triglycerides 51, LDL 60. 03/10/2021 Labs-hemoglobin 12.3, potassium 4.6, creatinine 1.91, GFR 35;. 03/24/2021 [facility] EKG-sinus rhythm, left bundle-branch block. 05/13/2021 Carotid duplex-less than 50% stenosis bilateral ICA. 05/27/2021 [facility] SULEMA/Doppler-right SULEMA 0.66, right TBI 0.35. Arterial waveforms are biphasic with brisk systolic upstroke throughout. Left SULEMA 0.81, left SULEMA 0.64. Arterial waveforms are biphasic with brisk systolic upstroke throughout. 05/27/2021 [facility] Venous duplex-no DVT. 07/17/2021 [facility] Echo-Normal left ventricular size. Definity contrast agent [...] triglycerides 71, LDL 46, glucose 107. 05/04/2023 PHYSICAL EXAM Vitals BP 148/72 (BP Location: Left arm, Patient Position: Sitting) Pulse 82 Ht 172.7 cm (5' 8) Wt 80.2 kg (176 lb 14.4 oz) SpO2 96% BMI 26.90 kg/m?? General appearance - alert, no distress, [...] Diagnoses and all orders for this visit: Exertional chest pain (Primary) - Transthoracic Echo (TTE) Complete W Doppler/CF; Future History of complete AV block Cardiac pacemaker in situ NSVT (nonsustained ventricular tachycardia) (HCC) - Transthoracic Echo (TTE) Complete W Doppler/CF; Future PAD (peripheral artery disease) ([facility]) Claudication ([facility]) Mild aortic stenosis Essential hypertension Chronic respiratory failure with hypoxia, on home O2 therapy (CMS/HCC) ([facility]) Chronic kidney disease, unspecified CKD stage Other orders - amLODIPine (NORVASC) 10 mg tablet; Take 1 tablet (10 mg total) by mouth every morning PLAN/RECOMMENDATIONS 73 y.o. male with hypertension, history of AV block status post Medtronic pacemaker placement in June 2020, peripheral artery disease involving left lower extremity and carotid arteries, status post left lower extremity intervention; status post right carotid enterectomy; COPD/chronic respiratory failure on home oxygen at night, history of COVID-19 infection. - patient has exertional chest pain. MPI from 04/08/2022 reportedly showed LVEF 41%, segmental wallmotion abnormality; fixed basal, mid inferior infarct, alethea- infarct ischemia basal inferoseptal segment. Patient has high probability of obstructive CAD. In light of his ongoing symptoms, coronary angiogram to define coronary anatomy would be appropriate. After discussing benefits, risks and alternatives, patient will undergo cardiac catheterization. Patient has PAD; anticipate right radial access. IV hydration with normal saline prior to cardiac catheterization in light of patient's CKD. - NSVT on pacemaker interrogation. Continue beta-ramona. Invasive ischemic evaluation is being scheduled. Check echo with Doppler. - patient has known peripheral artery disease and stable claudication at present. Previous angiogram showed aortoiliac and femoral disease. Vascular surgery was consulted, and patient was anticipatedto undergo possible surgical revascularization. Patient declined surgery. At this time, patient would like to pursue medical treatment and daily walking. He will let us know if he has any worsening symptoms of claudication. Continue cilostazol that may help improve walking distance. Continue antiplatelet treatment with clopidogrel. Rivaroxaban was discontinued due to hematuria. Continue high-dose atorvastatin. LDL improved to 46. Target LDL less than 55. - follow-up with Nephrology for management of CKD. - previous hospitalization for COPD exacerbation with volume overload. Continue supplemental oxygen. -blood pressure is mildly elevated. Continue carvedilol, increase amlodipine to 10 mg p.o. daily. Low-salt diet counseling was done. -periodic pacemaker interrogations. -periodic surveillance echocardiogram for progression of aortic stenosis. -Counseling was done for heart healthy/low-salt diet, aerobic activity as tolerated. -follow-up in about 3 months or sooner if needed. My total encounter time on 01/11/24 was 45 minutes which was spent in the activities documented in the note. This includes time spent prior to the visit and after the visit in direct care of the patient. This time does not include time spent in any other separately reportable services. 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 documented in this encounter Miscellaneous Notes * Perioperative Nursing Note - Roxanna Hooper RN - 01/27/2024 3:31 PM CDT Patient discharged via wheelchair. Discharge paperwork given to patient and patient verbalized understanding. IV removed at this time. Skin dry and intact. Vital signs stable. * Pre-Sedation Documentation - Josiah Lay MD - 01/27/2024 8:42 AM CDT Sedation Plan ASA 3 - Severe systemic disease Sedation/Anesthesia Plan - moderate sedation Mallampati class: II. Risks, benefits, and alternatives discussed with patient. Last PO Intake: Patient NPO since midnight * Pre-Procedure Instructions - Katlyn Britt RN - 01/26/2024 12:15 PM CDT We are pleased that you and your doctor have chosen [facility] for your surgery. We hope that the following information will help make your visit a pleasant one. Surgery Date: 01/27/2024 Arrive at 8:00 A.M. [facility] (look for sign reading ???[facility]?? ) [address] [place] [address] Before your surgery: Notify your doctor of ANY change in your health such as a cold, sore throat, fever, infection or a change in the problem for which you are having your surgery. Follow any instructions given to you by your doctor or surgeon. Check with your doctor if you need to STOP taking: If you are taking any of these medications, please contact your Physician to see if you need to stop it prior to your procedure and if so when. Aspirin (ordered by your doctor) Coumadin (Warfarin) Eliquis Brilinta Xarelto Effient (PRASUGREL) Plavix One week before surgery STOP taking (unless directed otherwise by your Physician): All herbal/vitamin supplements Aspirin (not ordered by your doctor) Aleve, Advil, Motrin, Ibuprofen, Excedrin, Naproxen, Meloxicam, Diclofenac (oral & topical) Relafen, Celebrex, Ketorolac (Toradol) or other similar medications (Tylenol is okay unless it is not recommended by your physician). Fish Oil/[place] 3, Co Q 10, Cod Liver Oil, or other similar products. 24 hours before your surgery: No smoking, chew, vaping, alcohol, Marijuana, or recreational drug use. It is best to stop smoking now to improve your health. Hydrate yourself (water) - if no restrictions. If you take Metformin, Follow your physicians instructions Night before your surgery: DO NOT eat or drink anything after midnight including candy, mints, gum, chewable antacids, and cough drops. If you take a long acting insulin, follow your physicians instructions Follow surgeon's instructions for anti-bacterial shower night before and morning of surgery. Before Surgery your body must be thoroughly cleaned. Antibacterial Shower Instructions: Clean your hair using normal shampoo and/or conditioner products. Using an antibacterial soap (Example: Dove Antibacterial soap, Gold Dial, [place], Zest, Safeguard, Coast) wash your body thoroughly then rinse thoroughly and dry with a clean towel (use a different freshly washed towel for each shower). Dry with a clean towel. Do not use lotions, powders, creams, Vaseline, makeup, or hair products after either shower. Dress in clean pajamas or clothing. Do not shave below the neck on the night before or day of surgery The night before surgery sleep on clean linen Do Not let pets sleep with you Day of surgery: You may brush your teeth and rinse your mouth out. Repeat shower If you take a long acting insulin, short acting insulin, and/or oral diabetic medications Follow your physicians instructions ONLY take these pills with a sip of water: ONLY take the medications your physician instructed you to take. Any questions please call your physician. You Should bring a complete, up-to-date, list of all medications on the day of your surgery/procedure. Including any over the counter medications or supplements. Please note on your medication list the last time you took each medication. The healthcare team will ask for this information. Wear comfortable clothes that will not be tight over the area of your surgery Do Not Glue Dentures or Partials In If you have an implantable device with a remote, bring the remote with you on the day of surgery. Leave all valuables and jewelry, (including all body piercing jewelry), hairpins, false eyelashes, contact lenses at home. If you use a CPAP machine, please bring it with you to wear after your surgery. Please bring your photo ID, insurance cards, and medication list (including all [id number] medications) with you. Prescriptions can be filled onsite prior to discharge. Please have your co-pay available. Check in at the Registration Desk. You may have 2 visitors (visitor must be over the age of 18). When you are discharged: You must have a responsible adult to drive you home, you will not be allowed to drive or take a cabhome. We recommend you have someone stay with you for 24 hours after your surgery. What to bring if you are spending the night with us: Bring toiletry items such as: robe, slippers, toothbrush, toothpaste, brush or comb. Bring contact lens, hearing aids, glass cases and denture container if you use any of these items. The hospital will provide you with a gown. Questions or concerns: If you have any questions or concerns regarding your procedure, or to cancel your surgery/procedure- contact your surgeon as soon as possible. If you have questions regarding your Pre-Admission Screen/Testing, please call at . documented in this encounter Plan of Treatment Not on file documented as of this encounter Procedures Procedure Name Priority Date/Time Associated Diagnosis Comments LEFT HEART CATHETERIZATION WITH CORONARY ANGIOGRAPHY AND WITH AND WITHOUT LEFT VENTRICULOGRAM Routine 01/27/2024 11:45 AM CDT CKD (chronic kidney disease) stage 4, GFR 15-29 ml/min ([facility]) ([facility]) Angina pectoris, unstable ([facility]) ([facility]) Abnormal stress test documented in this encounter Results * LEFT HEART CATHETERIZATION WITH CORONARY ANGIOGRAPHY AND WITH AND WITHOUT LEFT VENTRICULOGRAM (01/27/2024 11:45 AM CDT) Anatomical Region Laterality Modality X-Ray Angiograph y Narrative 01/27/2024 11:56 AM CDT LEFT HEART CATHETERIZATION AND CORONARY ANGIOGRAM ??REPORT DATE OF PROCEDURE: 01/27/24 INDICATION FOR PROCEDURE: ??Chest discomfort, abnormal MPI, LV dysfunction, coronary risk factors BRIEF CLINICAL HISTORY: Freddy Hill is a 73 y.o. ??male ??with hypertension, history of AV block status post Medtronic pacemaker placement in June 2020, peripheral artery disease involving left lower extremity and carotid arteries, status post left lower extremity intervention; status post right carotid enterectomy; COPD/chronic respiratory failure on home oxygen at night, history of COVID-19 infection. Patient has history of exertional chest pain. ??MPI from 04/08/2022 reportedly showed LVEF 41%, segmental wall motion abnormality; fixed ?? basal, mid inferior infarct, alethea-infarct ischemia basal inferoseptal segment. ??Coronary angiogram was recommended to evaluate coronary anatomy. Due to patient's CKD, he was prehydrated with normal saline. Benefits and risks of the procedure were discussed with the patient in depth, and informed consent was taken prior to the procedure. ??Risks of the procedure include but are not limited to vascular complications like groin hematoma, retroperitoneal bleed, vessel perforation; periprocedural MA, cardiac arrhythmias, stroke, contrast induced nephropathy, and . ?? After discussing all the benefits, risks and alternatives, patient was willing to proceed with the procedure. PROCEDURES PERFORMED: Left heart catheterization- ??selective left and right coronary angiogram, LV pressure management and hemodynamic assessment Moderate sedation-CPT code 90979 MODERATE SEDATION: Midazolam 1 mg , Fentanyl 25 mcg, start time ?1116 stop time ?? 1140, total direct [id number] monitoring of conscious sedation ?24 minutes (CPT 04574) TRAINED OBSERVER: Tigre Carrizales RN was trained observer for moderate sedation. ACCESS SITE: ??Right radial artery PROCEDURE: ??After obtaining informed consent, patient was brought to the research lab assistant and prepped and draped in the usual sterile manner. ??Time-out and immediate reassessment of the patient was performed. ??After local anesthesia with lidocaine, right radial access was taken with micropuncture needle followed by insertion of a 6 Slovak sheath. ?? Selective left and right coronary angiography was performed using 5 F tig and 5F JR4 catheters respectively. ??Orthogonal views were taken. ??JR4 catheter was advanced in the LV cavity, LV pressure measurement was performed. ??Left ventriculogram was not performed due to patient's renal insufficiency. ??Finally, radial band was applied for local hemostasis. Patient tolerated procedure well without any immediate procedure related complications. Estimated blood loss was minimal. ??All specimens removed. The angiographic and other findings are given below. FINDINGS: LEFT MAIN CORONARY: ??Medium caliber vessel, no significant focal stenosis. LEFT ANTERIOR DESCENDING ARTERY: ??Large caliber vessel, tortuous in the mid segment, tapers distally and reaches the LV apex. ??No significant focal stenosis in the LAD or major diagonal branch. LEFT CIRCUMFLEX ARTERY: ??Large caliber vessel, gives rise to small-caliber OM1 and OM2 branch is a large caliber, tortuous OM3 branch. ??LCX provides collaterals to the RCA. RIGHT CORONARY ARTERY: ??Chronic total occlusion proximal segment, distal vessel supplied by collaterals from left coronary system. LEFT VENTRICULOGRAM: ??Left ventriculogram was not performed; LVEDP 10 mmHg HEMODYNAMIC ASSESSMENT: ??Opening pressure 167/79 mmHg, ??closing pressure 145/65 mmHg, LVEDP 10 mmHg. ??No significant gradient across aortic valve on the pull back of pigtail catheter. 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 ??No significant obstructive disease in the left coronary system. LVEDP 10 mmHg. Systemic hypertension PLAN/RECOMMENDATIONS: ??Continuation of optimal medical treatment including antiplatelet treatment, antianginals, statin. ??Need for intervention on HIDE AND SKIN COLERER of RCA to be determined based on clinical course. Voice recognition software was used to complete this document, therefore, garage construction equipment mechanic variances may occur. Josiah Lay MD, [facility] 01/27/24 Josiah Lay MD CV CARDIAC CATH PROCEDURES Final Result documented in this encounter Visit Diagnoses Diagnosis CKD (chronic kidney disease) stage 4, GFR 15-29 ml/min (CMS/HCC) (HCC) Chronic kidney disease, Stage IV (severe) Angina pectoris, unstable (CMS/HCC) (HCC) Intermediate coronary syndrome Abnormal stress test Other nonspecific abnormal cardiovascular system function study CKD (chronic kidney disease) stage 4, GFR 15-29 ml/min (CMS/HCC) (HCC) Chronic kidney disease, Stage IV (severe) Angina pectoris, unstable (CMS/HCC) (HCC) Intermediate coronary syndrome Abnormal stress test Other nonspecific abnormal cardiovascular system function study documented in this encounter Admitting Diagnoses Diagnosis CKD (chronic kidney disease) stage 4, GFR 15-29 ml/min ([facility] ([facility]) Chronic kidney disease, Stage IV (severe) Angina pectoris, unstable ([facility]) ([facility]) Intermediate coronary syndrome Abnormal stress test Other nonspecific abnormal cardiovascular system function study documented in this encounter Administered Medications Inactive Administered Medications - up to 3 most recent administrations Medication Order MAR Action Action Date Dose Rate Site sodium chloride 0.9% infusion 125 mL/hr, intravenous, Continuous, Starting on Tue01/27/24 at 0845, For 2 hours, Pre-Procedure (CV) New Bag 01/27/2024 9:00 AM CDT 125 mL/hr 125 m L/hr sodium chloride 0.9% infusion 125 mL/hr, intravenous, Continuous, Starting on Tue01/27/24 at 1230, Till discharge documented in this encounter Discontinued Medications Medication Sig Discontinue Reason Start Date End Da te cephalexin (KEFLEX) 500 mg capsule TAKE 1 CAPSULE BY MOUTH EVERY 8 HOURS Other 01/07/2022 01/26/2024 cetirizine 10 mg capsule Take by mouth Other 024 fluticasone propion-salmeteroL (ADVAIR DISKUS) 500-50 mcg/dose diskus inhaler Inhale 1 puff 2 (two) times a day Other 10/06/2021 01/26/2024 melatonin 5 mg capsule Take by mouth Other multivitamin capsule Take 1 capsule by mouth daily Other 01/26/2024 documented as of this encounter Historical Medications * This list may reflect changes made after this encounter. guaiFENesin ER (MUCINEX) 600 mg 12 hr tablet Take 2 tablets (1,200 mg total) by mouth 2 (two) times a day fluticasone propion-salmetero L (ADVAIR DISKUS) 500-50 mcg/dose diskus inhaler Inhale 1 puff 2 (two) times a day Rinse mouth with water after use. Do not swallow. 08/24/2024 cefdinir (OMNICEF) 300 mg capsule Take 1 capsule (300 mg total) by mouth 2 (two) times a day 12/20/2023 08/24/2024 added in this encounter Active and Recently Administered Medications Times are shown in CDT. Continuous Medication Order 01/25/2024 01/26/2024 01/27/2024 sodium chloride 0.9% infusion 125 mL/hr, intravenous, Continuous, Starting on Tue01/27/24 at 0845, For 2 hours, Pre-Procedure (CV) 0900 (New Bag - Prov ider: Roxanna Hooper, MARY) sodium chloride 0.9% infusion 125 mL/hr, intravenous, Continuous, Starting on Tue01/27/24 at 1230, Till discharge 1230 (Due) PRN Medication Order 01/25/2024 01/26/2024 01/27/2024 fentaNYL (SUBLIMAZE) preservative free injection (CANCELED) Code/trauma/sedation medication, Starting on Tue01/27/24 at 1116, Intra-Procedure (CV) 1116 (Given - Provid er: Tigre Carrizales RN) heparin 1,000 unit/mL injection (CANCELED) Code/trauma/sedation medication, Starting on Tue01/27/24 at 1125, Intra-Procedure (CV) 112 (Given - Provid er: Suyaap Armstrong RN) heparin in 0.9% sodium chloride 1,000 units/500 mL (2 unit/mL) infusion (premix) (CANCELED) Code/trauma/sedation medication, Starting on Tue01/27/24 at 1107, Intra-Procedure (CV) 1107 (Given - Provid er: Josiah Lay MD) iodixanoL (VISIPAQUE) 320 mg iodine/mL injection (CANCELED) Code/trauma/sedation medication, Starting on Tue01/27/24 at 1145, Intra-Procedure (CV) 1145 (Given - Provid er: Josiah Lay MD) lidocaine (XYLOCAINE) 10 mg/mL (1 %) injection (CANCELED) Code/trauma/sedation medication, Starting on Tue01/27/24 at 1124, Intra-Procedure (CV), Indications: Administration of Local Anesthesia 1124 (Given - Provid er: Josiah Lay MD) midazolam (VERSED) 1 mg/mL preservative free injection (CANCELED) Administer over 2 Minutes, Code/trauma/sedation medication, Starting on Tue01/27/24 at 1116, Intra-Procedure (CV) 1116 (Given - Provid er: Tigre Carrizales RN) verapamiL (ISOPTIN) injection (CANCELED) Administer over 2 Minutes, Code/trauma/sedation medication, Starting on Tue01/27/24 at 1125, Intra-Procedure (CV) 1125 (Given - Provid er: Josiah Lay MD) documented in this encounter Orders Medications Ordered That Mainor ht Not Have Been Administered Count Last Ordered Date First Ordered Date fentaNYL (SUBLIMAZE) preserv ative free injection 1 01/27/2024 heparin 1,000 unit/mL injection 1 heparin in 0.9% sodium chlor betsy 1,000 units/500 mL (2 unit/mL) infusion (premix) 1 01/27/2024 iodixanoL (VISIPAQUE) 320 mg iodine/mL injection 1 01/27/2024 lidocaine (XYLOCAINE) 10 mg/ mL (1 %) injection 1 01/27/2024 midazolam (VERSED) 1 mg/mL p reservative free injection 1 01/27/2024 sodium chloride 0.9% infusion 1 01/27/2024 verapamiL (ISOPTIN) injection 1 01/27/2024 Discharge Count Last Ordered Date First Orde red Date DISCHARGE PATIENT 1 01/27/2024 documented in this encounter Care Teams Neck Skewer Relationship Specialty Start Date End Date Ranulfo Romo DO PCP - General Family Medicine 04/08/22 Daniela Hilario NP Nurse Practitioner Nurse Practitioner 03/26/22 documented as of this encounter
--- OUTSIDE RECORDS SUMMARY | 2024-09-12 15:39 | XMS_ITS | Encounter Summary ---
Author Organization [facility] Healthcare Address [address] [place] [address] Care Team Providers Care Stereo Compiler Name Role Phone Daniela Hilario ENGINEERING PROGRAM MANAGER Unavailable [phone] Ranulfo Romo DO Primary Care Provider [phone] Reason for Visit * Cardiology (Routine) - Closed Specialty Diagnoses / Procedures Referred By Jovany carver Referred To Contact Cardiology Diagnoses History of complete AV block Pacemaker Procedures DEVICE CHECK - IN OFFICE Josiah Lay MD [address] [address] Phone: tel: fax: [facility] Medical Group Referral ID Status Reason Start Date Expiration Date Visits Re quested Visits Authorized [id number] Closed 06/04/2021 01/21/2024 1 1 Encounter Details Date Type Department Care Team (Latest Contact Info) Description 01/11/2024 1:00 PM CDT Ancillary Procedure [facility] Medical Group Cardiology [address] [facility] [address] [place] [address] History of complete AV block; Pacemaker Social History Tobacco Use Types Packs/Day Years [...] CDT Gender Identity Male 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 Dx; Second Degree AVB, Symptomatic Bradycardia. DOI 05/02/2019-Dr Zenia Good ([place]). [facility] remote. Supervising MD: Dr Lay. Office DDD Pacemaker evaluation demonstrated appropriate device function. Battery function-2.95V, 4.4 years remaining battery life to HERMELINDO. Presenting rhythm-ASVP. Underlying [id number] with First Degree AV Block. NE interval 280 ms. AP-16%, REFERENCE LIBRARY ASSISTANT-99.7%. No mode switch episodes recorded. 2 Ventricular high rate episodes noted on 01/08/24, iegm suggestive of NSVT 5-11 beat durations @ 186 bpm. Medications; Plavix, Coreg. Ventricular amplitude decreased to 2.0V and PW increased to 1.0 ms. ?? See scanned report. ?? Office pacemaker f/u expected in 1 year. [facility] remote f/u 04/11/2024. Samia José, MARY Josiah Lay MD CV CARDIAC SERVICES PROCEDURES F inal Result documented in this encounter Visit Diagnoses Diagnosis History of complete AV block Pacemaker Cardiac pacemaker in situ documented in this encounter Care Teams Stereo Compiler Relationship Specialty Start Date End Date ClarissaRanulfo PCP - General Family Medicine 04/08/22 Daniela Hilario NP Nurse Practitioner Nurse Practitioner 03/26/22 documented as of this encounter
--- OUTSIDE RECORDS SUMMARY | 2024-09-12 15:39 | XMS_ITS | Encounter Summary ---
Author Organization [facility] Healthcare Address [address] [place] [address] Care Team Providers Care Brazing Machine Setter Name Role Phone Daniela Hilario LIVER TRIMMER Unavailable [phone] Ranulfo Romo DO Primary Care Provider [phone] Reason for Visit * Cardiology (Routine) - Closed Specialty Diagnoses / Procedures Referred By Jovany carver Referred To Contact Diagnoses Exertional chest pain NSVT (nonsustained ventricular tachycardia) (HCC) Procedures Transthoracic Echo (TTE) Complete W Doppler/CF Waldemar Baca MD [address] [address] Phone: tel: fax: [facility] Medical Group Referral ID Status Reason Start Date Expiration Date Visits Re quested Visits Authorized [id number] Closed 01/11/2024 02/09/2025 1 1 Encounter Details Date Type Department Care Team (Latest Contact Info) Description 02/01/2024 2:00 PM CDT Ancillary Procedure [facility] Medical Group Cardiology [address] [place] [address] Exertional chest pain; NSVT (nonsustained ventricular tachycardia) (HCC) Social History Tobacco Use Types Packs/Day Years [...] CDT Gender Identity Male 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 Sexual Orientation Not on file documented as of this encounter Last Filed Vital Signs Vital Sign Reading Time Taken Comments Blood Pressure 120/77 02/01/2024 2:52 PM CDT Pulse - - Temperature - - Respiratory Rate - - Oxygen Saturation - - Inhaled Oxygen Concentration - - Weight - - Height - - Body Mass Index - - documented in this encounter Plan of Treatment Not on file documented as of this encounter Procedures Procedure Name Priority Date/Time Associated Diagnosis Comments TRANSTHORACIC ECHO (TTE) COMPLETE W DOPPLER/CF WO CONTRAST Routine 02/01/2024 2:52 PM CDT Exertional chest pain NSVT (nonsustained ventricular tachycardia) (HCC) documented in this encounter Results * TRANSTHORACIC ECHO (TTE) COMPLETE W DOPPLER/CF WO CONTRAST (02/01/2024 2:52 PM CDT) Anatomical Region Laterality Modality Ultrasound 02/01/2024 2:19 PM CDT Narrative 02/01/2024 3:51 PM CDT [facility] Medical Group Cardiology [address] [facility] [address], [place] [address] [address] [facility] [address], [place] [address] P:[phone] P:[phone] Echocardiographic Report Patient Name: TOBY HILL J : 1950 Study Date: 02/01/2024 2:19:41 PM Gender: M Tech: RHONDA Location: [place] Ref Provider: WALDEMAR BACA ?Height(Cm): 173 BSA: 1.96 Weight(Kg): 79.8 Heart Rate: 83 BP: 120 / 77 Quality: Good Order Provider: WALDEMAR BACA PROCEDURES: Echocardiographic Report: Transthoracic echocardiogram with complete 2D, M-Mode, and color Doppler examination. With Strain Analysis. INDICATIONS: Exertional CP, NSVT, and Chest Pain. Measurements: 2D/M Mode ?Doppler Measurement ?Value ?Normal Range ?Measurement ?Value ?Normal Range LVIDd 2D ? 4.09 ? [ 4.20 - 5.80 ] cm ?ISAIAH Vmax ? 2.14 ? [ 2.00 - 4.00 ] cm2 LVIDs 2D ? 3.76 ? [ 2.50 - 4.00 ] cm ?AV Mean PG ? 6 ?mmHg LVPWd 2D ? 1.38 ? [ 0.60 - 1.00 ] cm ?AV Peak Rajesh ?1.71 ? [ 1.00 - 1.70 ] m/s IVSd 2D ?1.63 ? [ 0.60 - 1.00 ] cm ?AV Peak PG ? 12 ? mmHg LA Volume Index ?35 ? [ 16 - 34 ] cc/m2 ? AV VTI ? 34.66 ?cm LVOT Diam ?2.32 ?[ 1.70 - 2.10 ] cm LVOT Peak Rajesh ?0.81 ?[ 0.70 - 1.10 ] m/s LVOT VTI ? 16.55 ? cm MV E Peak Rajesh ?0.54 ?[ 0.60 - 1.30 ] m/s MV A Peak Rajesh ?0.77 ?[ 1.00 - 1.20 ] m/s MV Decel Time ?211 ? [ 104 - 258 ] msec TR Peak Rajesh ?3.11 ?[ 1.00 - 2.80 ] m/s TR Peak PG ? 39 ?mmHg Lateral E` ? 0.08 ?[ 0.10 - 0.15 ] m/s E` ? 0.07 ?m/s E/E` ? 7 Measurement ?Value ?Normal Range ?Measurement ?Value ?Normal Range 2D/M Mode ?Doppler - FINDINGS: Interpretation Site: Exam was interpreted at [facility]. Left Ventricle: Normal left ventricular size. Sigmoid hypertrophy of the septum. Normal global left ventricular systolic function. Impaired diastolic relaxation Grade I. Ejection fraction is measured at 55 %. Global Longitudinal Strain is -16 %. Right Ventricle: Normal right ventricular size. Normal right ventricular systolic function. Left Atrium: There is mild enlargement of left atrium. Right Atrium: The right atrium is normal in size. Atrial Septum: Normal atrial septum. Mitral Valve: Mild mitral annular calcification. Trivial regurgitation of the mitral valve. Aortic Valve: Mild aortic stenosis. Peak Velocity of 1.70 m/s. Mean gradient of 6.0 mmHg. Valve area of 2 cm2. Aortic cusps appears sclerotic. All 3 cusps not well visualized. Tricuspid Valve: Normal appearance of the tricuspid valve. Moderate pulmonary hypertension based on right ventricular systolic pressure. Estimated peak RVSP is 47 mmHg. Mild tricuspid regurgitation. Pulmonic Valve: Pulmonic valve not well visualized. Pericardium: Normal pericardium with no significant pericardial effusion. Aorta: Normal aortic root. IVC: Normal size and normal respiratory collapse consistent with normal right atrial pressure (<5 mmHg). CONCLUSIONS: Suboptimal image quality. Normal left ventricular size. Left ventricular hypertrophy [...] pulmonary hypertension, RVSP 47 mmHg. Mild tricuspid regurgitation. Electronically Signed By: Waldemar Baca MD, [facility] 2024-02-01 15:50:36 CDT Procedure Note Waldemar Baca MD - 02/01/2024 [facility] Medical Group Cardiology [address] [place] [address] [address] [facility] [address], [place] [address] P:[phone] P:[phone] Echocardiographic Report Patient Name: TOBY HILL J : 1950 Study Date: 02/01/2024 2:19:41 PM Gender: M Tech: Location: [place] Ref Provider: WALDEMAR BACA Height(Cm): 173 BSA: 1.96 Weight(Kg): 79.8 Heart Rate: 83 BP: 120 / 77 Quality: Good Order Provider: WALDEMAR BACA PROCEDURES: Echocardiographic Report: Transthoracic echocardiogram with complete 2D, M-Mode, and color Dopplerexamination. With Strain Analysis. INDICATIONS: Exertional CP, NSVT, and Chest Pain. Measurements: 2D/M ModeDoppler Measurement Value Normal Range MeasurementValue Normal Range LVIDd 2D 4.09 [ 4.20 - 5.80 ] cm ISAIAH Vmax2.14 [ 2.00 - 4.00 ] cm2 LVIDs 2D 3.76 [ 2.50 - 4.00 ] cm AV Mean PG6 mmHg LVPWd 2D 1.38 [ 0.60 - 1.00 ] cm AV Peak Vel1.71 [ 1.00 - 1.70 ] m/s IVSd 2D 1.63 [ 0.60 - 1.00 ] cm AV Peak PG12 mmHg LA Volume Index 35 [ 16 - 34 ] cc/m2 AV VTI34.66 cm LVOT Diam 2.32 [ 1.70 - 2.10 ] cm LVOT Peak Rajesh 0.81 [ 0.70 - 1.10 ] m/s LVOT VTI 16.55 cm MV E Peak Rajesh 0.54 [ 0.60 - 1.30 ] m/s MV A Peak Rajesh 0.77 [ 1.00 - 1.20 ] m/s MV Decel Time 211 [ 104 - 258 ] msec TR Peak Rajesh 3.11 [ 1.00 - 2.80 ] m/s TR Peak PG 39 mmHg Lateral E` 0.08 [ 0.10 - 0.15 ] m/s E` 0.07 m/s E/E` 7 Measurement Value Normal Range MeasurementValue Normal Range 2D/M ModeDoppler - FINDINGS: Interpretation Site: Exam was interpreted at [facility]. Left Ventricle: Normal left ventricular size. Sigmoid hypertrophy of the septum. Normalglobal left ventricular systolic function. Impaired diastolic relaxation Grade I.Ejection fraction is measured at 55 %. Global Longitudinal Strain is -16 %. Right Ventricle: Normal right ventricular size. Normal right ventricular systolicfunction. Left Atrium: There is mild enlargement of left atrium. Right Atrium: The right atrium is normal in size. Atrial Septum: Normal atrial septum. Mitral Valve: Mild mitral annular calcification. Trivial regurgitation of the mitralvalve. Aortic Valve: Mild aortic stenosis. Peak Velocity of 1.70 m/s. Mean gradient of 6.0mmHg. Valve area of 2 cm2. Aortic cusps appears sclerotic. All 3 cusps not well visualized. Tricuspid Valve: Normal appearance of the tricuspid valve. Moderate pulmonary hypertensionbased on right ventricular systolic pressure. Estimated peak RVSP is 47 mmHg. Mildtricuspid regurgitation. Pulmonic Valve: Pulmonic valve not well visualized. Pericardium: Normal pericardium with no significant pericardial effusion. Aorta: Normal aortic root. IVC: Normal size and normal respiratory collapse consistent with normal rightatrial pressure (<5 mmHg). CONCLUSIONS: Suboptimal image quality. Normal left ventricular size. Left ventricularhypertrophy with sigmoid hypertrophy of the septum. Normal global left ventricular systolicfunction. Impaired diastolic relaxation Grade I. Ejection fraction is measured at 55%. Global Longitudinal Strain is -16 %. Normal RV size and systolic function. Mild left atrial enlargement. Mild mitral annular calcification. Trivial regurgitation of the mitralvalve. Aortic cusps appears sclerotic; all 3 cusps not well visualized. Mildaortic stenosis. V max 1.70 m/s. Mean gradient 6 mmHg. Valve area of 2 cm2. Moderate pulmonary hypertension, RVSP 47 mmHg. Mild tricuspidregurgitation. Electronically Signed By: Waldemar Baca MD, [facility] 2024-02-01 15:50:36 CDT Waldemar Baca MD CV ECHO PROCEDURES Final Result documented in this encounter Visit Diagnoses Diagnosis Exertional chest pain Unspecified chest pain NSVT (nonsustained ventricular tachycardia) (HCC) documented in this encounter Care Teams Brazing Machine Setter Relationship Specialty Start Date End Date Ranulfo Romo DO PCP - General Family Medicine 04/08/22 Daniela Hilario NP Nurse Practitioner Nurse Practitioner 03/26/22 documented as of this encounter
--- OUTSIDE RECORDS SUMMARY | 2024-09-12 15:39 | XMS_ITS | Encounter Summary ---
Author Organization [facility] Healthcare Address [address] [place] [address] Care Team Providers Care Weighing Station Operator Name Role Phone Daniela Hilario ENGLISH LANGUAGE LEARNER TUTOR Unavailable [phone] Ranulfo Romo DO Primary Care Provider [phone] Reason for Visit * Cardiology (Routine) - Closed Specialty Diagnoses / Procedures Referred By Jovany carver Referred To Contact Diagnoses History of complete AV block Procedures DEVICE CHECK - REMOTE Josiah Lay MD [address] [place] [address] Phone: tel: fax: [facility] Medical Group Referral ID Status Reason Start Date Expiration Date Visits Re quested Visits Authorized [id number] Closed 02/17/2022 11/21/2023 1 1 Encounter Details Date Type Department Care Team (Latest Contact Info) Description 11/09/2023 10:30 AM CDT Ancillary Procedure [facility] Medical [facility] Cardiology [address] [place] [address] [phone] Cardiac pacemaker in situ (Primary Dx); History of complete AV block [...] CDT Gender Identity 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 Dx; Second Degree AVB, Symptomatic Bradycardia. DOI 05/02/2019-Dr Zenia Good ([place]). [facility] remote. Routine DDDR Pacemaker Remote. Transmission attached. Battery status: 2.96 V , 4.6 years remaining battery life to HERMELINDO. Stable lead impedances, pacing and sensing thresholds. Presenting rhythm: /PAINT PREPARER AP- 3.9%, PAINT PREPARER- 99.9% No AT/AF episodes noted. AF [place] <0.1%. No Ventricular high rate episodes detected. Medications: Plavix, carvedilol See scanned report. Office pacemaker follow up: 01/11/24 [facility] remote f/u 02/15/24. Kobe Soto RN Josiah Lay MD CV CARDIAC SERVICES PROCEDURES F inal Result documented in this encounter Visit Diagnoses Diagnosis Cardiac pacemaker in situ- Primary History of complete AV block documented in this encounter Care Teams Weighing Station Operator Relationship Specialty Start Date End Date Ranulfo Romo DO PCP - General Family Medicine 04/08/22 Daniela Hilario NP Nurse Practitioner Nurse Practitioner 03/26/22 documented as of this encounter
--- OUTSIDE RECORDS SUMMARY | 2024-09-12 15:39 | XMS_ITS | Encounter Summary ---
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 * Telephone Encounter - Tiffanie Hawthorne - 02/01/2024 11:22 AM CDT Rufina uriarte from pulmonary and sleep medicine requesting a copy of procedure note from 01/26 as well as most recent office visit note. States pt will be seen in their office tomorrow and is hoping for these copys by then. Thank you. Contact:[phone] documented in this encounter Plan of Treatment Not on file documented as of this encounter Visit Diagnoses Not on filedocumented in this encounter Care Teams Network Desktop Support Specialist Relationship Specialty Start Date End Date Ranulfo Romo DO PCP - General Family Medicine 04/08/22 Daniela Hilario NP Nurse Practitioner Nurse Practitioner 03/26/22 documented as of this encounter
--- OUTSIDE RECORDS SUMMARY | 2024-09-12 15:39 | XMS_ITS | Encounter Summary ---
Author Organization [facility] Healthcare Address [address] [place] [address] Care Team Providers Care Tile Burner Name Role Phone Daniela Hilario CONTINUOUS CONVEYOR SCREEN DRIER Unavailable [phone] Ranulfo Romo DO Primary Care Provider [phone] Reason for Referral * Cardiology (Routine) - Closed Specialty Diagnoses / Procedures Referred By Jovany t Referred To Contact Diagnoses Exertional chest pain NSVT (nonsustained ventricular tachycardia) (HCC) Procedures Transthoracic Echo (TTE) Complete W Doppler/CF Josiah Baca MD [address] [place] [address] Phone: tel: fax: [facility] Referral ID Status Reason Start Date Expiration Date Visits Re quested Visits Authorized [id number] Closed 01/11/2024 02/09/2025 1 1 Reason for Visit * Reason Comments Follow-up Encounter Details Date Type Department Care Team (Late st Contact Info) Description 01/11/2024 1:30 PM CDT Office Visit [facility] Cardiology [address] [facility] [address] [place] [address] Josiah Baca MD [address] [place] [address] Exertional chest pain (Primary Dx); History of complete AV block; Cardiac pacemaker in situ; NSVT (nonsustained ventricular tachycardia) (HCC); PAD (peripheral artery disease) (HCC); Claudication (HCC); Mild aortic stenosis; Essential hypertension; Chronic respiratory failure with hypoxia, on home O2 therapy (CMS/HCC) (HCC); Chronic kidney disease, unspecified CKD stage Social History Tobacco Use Types Packs/Day Years [...] Gender Identity Male 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 Sexual Orientation Not on file documented as of this encounter Last Filed Vital Signs Vital Sign Reading Time Taken Comments Blood Pressure 148/72 01/11/2024 1:16 PM CDT Pulse 82 01/11/2024 1:16 PM CDT Temperature - - Respiratory Rate - - Oxygen Saturation 96% 01/11/2024 1:16 PM CDT Inhaled Oxygen Concentration - - Weight 80.2 kg (176 lb 14.4 oz) 01/11/2024 1:16 PM CDT Height 172.7 cm (5' 8) 01/11/2024 1:16 PM CDT Body Mass Index 26.9 01/11/2024 1:16 PM CDT documented in this encounter Ordered Prescriptions Prescription Sig Dispense Quantity Refills Last Filled Start Date End Date amLODIPine (NORVASC) 10 mg tablet Take 1 tablet (10 mg total) by mouth every morning 30 tablet 11 01/11/2024 documented in this encounter Progress Notes * Josiah Baca MD - 01/11/2024 1:30 PM CDT [facility] CARDIOLOGY 01/11/2024 CHIEF COMPLAINT Cardiovascular management HPI Tobyleonel Hill is a 73 y.o. male with [...] to local area in October 2020 from [place], [place]. Patient has extensive cardiovascular history. His [...] placement. He denies any history of clinical MD, angina. At present, patient has dyspnea on [...] routine follow-up visit. He was hospitalized at [facility] in June 2021 with worsening shortness of [...] medical regimen. Patient is on home oxygen. 12/30/[id number] visit today, patient reports worsening discomfort in [...] hematuria. Repor ts compliance with other medications. MEDICAL HISTORY he has a past medical history of Anemia, Arthritis, Asthma, AV block, Carotid stenosis, CKD (chronic kidney disease) stage 3, GFR 30-59 ml/min ([facility]), Claudication ([facility]), COPD (chronic obstructive pulmonary disease) ([facility]), Cough, COVID-19 (05/2020), Cramps of lower extremity, Easy bruisability, Empyema ([facility]/HCC) ([facility]) (05/2020), Fatigue, GERD (gastroesophageal reflux disease), Hyperkalemia, Hypertension, Irregular heart beat, PAD (peripheral artery disease) ([facility]), Pneumonia (2018), Sleep apnea, SOB (shortness [...] potassium 4.6, creatinine 1.91, GFR 35;. 03/24/2021 [facility] EKG-sinus rhythm, left bundle-branch block. 05/13/2021 Carotid duplex-less than 50% stenosis bilateral ICA. 05/27/2021 [facility] SULEMA/Doppler-right SULEMA 0.66, right TBI 0.35. Arterial waveforms are biphasic with brisk systolic upstroke throughout. Left SULEMA 0.81, left SULEMA 0.64. Arterial waveforms are biphasic with brisk systolic upstroke throughout. 05/27/2021 [facility] Venous duplex-no DVT. 07/17/2021 [facility] Echo-Normal left ventricular size. Definity contrast agent [...] pacemaker in situ NSVT (nonsustained ventricular tachycardia) ([facility]) - Transthoracic Echo (TTE) Complete W Doppler/CF; Future PAD (peripheral artery disease) ([facility]) Claudication ([facility]) Mild aortic stenosis Essential hypertension Chronic respiratory failure with hypoxia, on home O2 therapy ([facility]/HCC) ([facility]) Chronic kidney disease, unspecified CKD stage [...] in any other separately reportable services. Josiah Baca MD 01/11/24 Voice recognition software was used to complete this document, therefore, telegraphic typewriter operator chief variances may occur. documented in this encounter Plan of Treatment Not on file documented as of this encounter Results * TRANSTHORACIC ECHO (TTE) COMPLETE W DOPPLER/CF WO CONTRAST (02/01/2024 2:52 PM CDT) Anatomical Region Laterality Modality Ultrasound 02/01/2024 2:19 PM CDT Narrative 02/01/2024 3:51 PM CDT [facility] Cardiology [address] [facility] [address], [place] [address] [address] [facility] [address], [place] [address] P:[phone] P:[phone] Echocardiographic Report Patient Name: TOBY HILL J : 1950 Study Date: 02/01/2024 2:19:41 PM Gender: M Tech: Location: [place] Ref Provider: JOSIAH BACA ?Height(Cm): 173 BSA: 1.96 Weight(Kg): 79.8 Heart Rate: 83 BP: 120 / 77 Quality: Good Order Provider: JOSIAH BACA PROCEDURES: Echocardiographic Report: Transthoracic echocardiogram with [...] FINDINGS: Interpretation Site: Exam was interpreted at [facility]. Left Ventricle: Normal left ventricular size. Sigmoid [...] mmHg. Mild tricuspid regurgitation. Electronically Signed By: Josiah Baca MD, [facility] 2024-02-01 15:50:36 CDT Procedure Note Josiah Baca MD - 02/01/2024 [facility] Cardiology [address], [place] [address] [address], [place] [address] P:[phone] P:[phone] Echocardiographic Report Patient Name: TOBY HILL J : 1950 Study Date: 02/01/2024 2:19:41 PM Gender: M Tech: RHONDA Location: [facility] Provider: JOSIAH BACA Height(Cm): 173 BSA: 1.96 Weight(Kg): 79.8 Heart Rate: 83 BP: 120 / 77 Quality: Good Order Provider: JOSIAH BACA PROCEDURES: Echocardiographic Report: Transthoracic echocardiogram with [...] FINDINGS: Interpretation Site: Exam was interpreted at [facility]. Left Ventricle: Normal left ventricular size. Sigmoid [...] 47 mmHg. Mild tricuspidregurgitation. Electronically Signed By: Josiah Baca MD, [facility] 2024-02-01 15:50:36 CDT us Josiah Baca MD CV ECHO PROCEDURES Final Result documented in this encounter Visit Diagnoses Diagnosis Exertional chest pain- Primary Unspecified chest pain History of complete AV block Cardiac pacemaker in situ NSVT (nonsustained ventricular tachycardia) (HCC) PAD (peripheral artery disease) (HCC) Unspecified peripheral vascular disease Claudication (HCC) Unspecified peripheral vascular disease Mild aortic stenosis Aortic valve disorders Essential hypertension Unspecified essential hypertension Chronic respiratory failure with hypoxia, on home O2 therapy ([facility]/HCC) (HCC) Chronic kidney disease, unspecified CKD stage Exertional chest pain Unspecified chest pain NSVT (nonsustained ventricular tachycardia) ([facility]) documented in this encounter Discontinued Medications Medication Sig Discontinue Reason Start Date End Da te cloNIDine (CATAPRES) 0.1 mg tablet Take 0.1 mg by mouth daily 01/11/2024 amLODIPine (NORVASC) 5 mg tablet Take 1 tablet (5 mg total) by mouth every morning 10/04/2023 01/11/2024 documented as of this encounter Care Teams Tile Burner Relationship Specialty Start Date End Date Ranulfo Romo DO PCP - General Family Medicine 04/08/22 Daniela Hilario NP Nurse Practitioner Nurse Practitioner 03/26/22 documented as of this encounter
--- OUTSIDE RECORDS SUMMARY | 2024-09-12 15:39 | XMS_ITS | Encounter Summary ---
Author Organization [facility] Healthcare Address [address] [place] [address] Care Team Providers Care Real Estate Underwriter Name Role Phone Daniela Hilario SHINGLE PACKER Unavailable [phone] Ranulfo Romo DO Primary Care Provider [phone] Reason for Visit * Auth/Cert (Routine) Specialty Diagnoses / Procedures Referred By Jovany carver Referred To Contact Diagnoses Stricture of bulbous urethra in male, unspecified stricture type Stricture of bulbous urethra in male, unspecified stricture type [N35.912] Procedures MT NJX RETROGRADE URETHROCSTOGRAPY MT CYSTOURETHROSCOPY W/INTERNAL URETHROTOMY MT CYSTO W/DILAT RX BALO CATH URTL STRIX/STEN MALE MT DILAT URETHRAL STRIX DILATOR MALE 1ST MT INSJ NON-NDWELLG BLADDER CATHETER CYSTOSCOPY URETHRAL DILATION; CYSTOSCOPY, DILATION OF URETHRAL STRICTURE, DIRECT VISION INTERNAL URETHROTOMY,RETROGRADE URETHROGRAM, OPTILUME 24F & 30F 5CM BALLOON DILATION WITH CASPER CATHETER PLACEMENT CYSTOSCOPY URETHROGRAM URETHROTOMY - DIRECT VISION Referral ID Status Reason Start Date Expiration Date Visits Re quested Visits Authorized [id number] 1 1 Encounter Details Date Type Department Care Team (Late st Contact Info) Description 09/04/2024 Hospital Encounter [facility] Operating Room [address] [place] [address] [place] [address] [place] [address] Social History Tobacco Use Types Packs/Day Years [...] CDT Gender Identity Male 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 Patient informed and verbalized understanding HEAD CRANE TECHNICIAN * Perioperative Nursing Note - Katlyn Hanks RN - 08/24/2024 10:59 AM CST Spoke with Akila from Dr Childress's office regarding holding plavix and pletal. She states 7 days for plavix and she will contact Dr Childress regarding pletal and let patient know. HEAD CRANE TECHNICIAN * Perioperative Nursing Note - Katlyn Hanks RN - 08/24/2024 8:58 AM CST Pre operative instructions reviewed with patient , he verbalized understanding. Patient states he will reach out to his after school program teacher to confirm hold time for plavix and Pletal. I will reach out to María's office for confirmation. HEAD CRANE TECHNICIAN * Pre-Procedure Instructions - Katlyn Hanks RN - 08/24/2024 8:48 AM CST [phone] We are pleased that you and your doctor have chosen [facility] for your surgery. We hope that the following information will help make your visit a pleasant one. Surgery Date: 09/04/2024 1015 am arrival to the ambulatory Before your surgery: Notify your doctor of ANY change in your health such as a cold, sore throat, fever, any infection or a change in the problem for which you are having your surgery. Follow any instructions given to you by your doctor or surgeon. Check with your doctor if you need to STOP taking: Aspirin (ordered by your doctor) Plavix hold 7, Pletal hold as instructed by physician Coumadin One week before surgery STOP taking: All herbal supplements Aspirin (not ordered by your doctor) Aleve, Advil, Motrin, Ibuprofen, or other similar medications (Tylenol is okay). 24 hours before your surgery: No smoking or alcoholic drinks. Stop taking your: Metformin/Glucophage. Night before your surgery: Do not eat or drink anything after midnight. Follow surgeon's instructions for anti-bacterial shower night before and morning of surgery. Day of surgery: Do not swallow any water when you brush your teeth. Take medications as directed Pre-Surgery Instructions: Medication Instructions acetaminophen 500 mg capsule Take as prescribed albuterol 2.5 mg /3 mL (0.083 %) nebulizer solution Take morning of surgery albuterol HFA (PROVENTIL HFA,VENTOLIN HFA,PROAIR HFA) 90 mcg/actuation inhaler Take morning of surgery amLODIPine (NORVASC) 10 mg tablet Take morning of surgery atorvastatin (LIPITOR) 80 mg tablet Take as prescribed carvediloL (COREG) 25 mg tablet Take morning of surgery cilostazoL (PLETAL) 50 mg tablet Hold as instructed by your provider clopidogreL (PLAVIX) 75 mg tablet Hold as instructed by your provider Stiolto Respimat 2.5-2.5 mcg/actuation inhaler Take morning of surgery doxepin (SINEquan) 25 mg capsule Take as prescribed dupilumab (DUPIXENT) syringe Take as prescribed finasteride (PROSCAR) 5 mg tablet Take morning of surgery furosemide (LASIX) 40 mg tablet Take as prescribed gabapentin (NEURONTIN) 300 mg capsule Take as prescribed guaiFENesin ER (MUCINEX) 600 mg 12 hr tablet Take as prescribed oxygen Take morning of surgery pantoprazole DR (PROTONIX) 40 mg EC tablet Take morning of surgery potassium chloride ER (KLOR-CON) 10 mEq CR tablet Hold the morning of surgery tamsulosin (FLOMAX) 0.4 mg extended release capsule Take as prescribed traMADoL (ULTRAM) 50 mg tablet Take as prescribed triamcinolone (KENALOG) 0.1 % ointment Take as prescribed Use no make-up, nail faroese, lotions, oils or powders on your skin. Wear comfortable clothes that will not be tight in the area of your surgery. Leave all valuables and jewelry (including all body piercing jewelry) at home. If you use a CPAP machine, please bring it with you to wear after your surgery. Please bring your a photo ID and insurance cards with you. Check in at the Registration Desk.downstairs in the Ambulatory Surgery Department. You will come inthe main entrance and go down the duran until you see the [employer]/coffee shop, there will be elevators to the right, take those down to LL1. You will exist the elevators to the right and go down thehall and you will pass Medical Imaging on the left and we will be the next department on the right,you will see the sign above that says Ambulatory Surgery Department check-in. If you are 17 years old or younger, a parent or guardian must come with you. After your Outpatient Surgery: You must have a responsible adult to drive you home, you will not be allowed to drive or take a cabhome. We recommend you have someone stay with you for 24 hours after your surgery. Questions or concerns: If you have any questions or concerns regarding your procedure, contact your surgeon as soon as possible. If you have questions regarding your Pre-Admission Testing, please call us. We can be reached at the number posted at the top of the page. 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 Do not swallow. Alternate therapy 08/24/2024 cefdinir (OMNICEF) 300 mg capsule Take 1 capsule (300 mg total) by mouth 2 (two) times a day Therapy completed 12/20/2023 08/24/2024 Spiriva Respimat 2.5 mcg/actuation inhaler INHALE 2 PUFFS BY MOUTH ONCE DAILY Alternate therapy 04/21/2021 08/24/2024 documented as of this encounter Historical Medications * This list may reflect changes made after this encounter. Stiolto Respimat 2.5-2.5 mcg/actuation inhaler Inhale 2 puffs daily 06/07/2024 added in this encounter Care Teams Real Estate Underwriter Relationship Specialty Start Date End Date Ranulfo Romo DO PCP - General Family Medicine 04/08/22 Daniela Hilario NP Nurse Practitioner Nurse Practitioner 03/26/22 documented as of this encounter
--- OUTSIDE RECORDS SUMMARY | 2024-09-12 15:39 | XMS_ITS | Encounter Summary ---
Author Organization [facility] Address [address] [place] [address] Phone Care Team Providers Care Community Living Instructor Name Role Phone Daniela Hilario FISH AND GAME CLUB MANAGER Unavailable [phone] Ranulfo Romo DO Primary Care Provider [phone] Encounter Details Date Type Department Care Team (Late st Contact Info) Description 05/17/2024 Telephone [facility] Infectious Diseases [address] [place] [address] [address] [place] [address] [place] Fortune Social History Tobacco Use Types Packs/Day Years [...] CDT Gender Identity Male 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 Landeros - unfortunately phone number was out of operation. Called office and spoke with Juanita. 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 If they have not been done the referring provider must request them. We will not schedule until we have these results Asked that office call back with any questions. * Telephone Encounter - Brooklyn Fortune - 05/17/2024 11:[address] Landeros received a letter of denial on patient referral, he wants to know why it was denied Please call [phone] documented in this encounter Plan of Treatment Not on file documented as of this encounter Visit Diagnoses Not on filedocumented in this encounter Care Teams Community Living Instructor Relationship Specialty Start Date End Date Ranulfo Romo DO PCP - General Family Medicine 04/08/22 Daniela Hilario NP Nurse Practitioner Nurse Practitioner 03/26/22 documented as of this encounter
--- OUTSIDE RECORDS SUMMARY | 2024-09-12 15:39 | XMS_ITS | Encounter Summary ---
Author Organization [facility] Address [address] [place] [address] Care Team Providers Care Work Ticket Distributor Name Role Phone Daniela Hilario BUSINESS ANALYST CONSULTANT Unavailable [phone] Ranulfo Romo DO Primary Care Provider [phone] Reason for Referral * Consultation (Routine) - Canceled Specialty Diagnoses / Procedures Referred By Contac t Referred To Contact Cardiology Diagnoses Abnormal stress test Angina pectoris, unstable (CMS/HCC) (HCC) Josiah Lay MD [address] [address] Phone: tel: fax: [facility] Cardiology [address] [address] [place] [address] Phone: tel: fax: Referral ID Status Reason Start Date Expiration Date Visits Requested Visits Authorized [id number] Canceled Specialty Services Required 01/11/2024 02/09/2025 1 1 Question Answer Please select the performing region: [facility] [[id number]] Please select the performing department: [facility] [[id number]] # of visits: 1 Comments PROCEDURE/TEST ORDERED:[facility] LOCATION: [facility] DATE OF SERVICE:01/26 INSURANCE:[employer] Medicare DIAGNOSIS:abn stress, angina ORDERING PROVIDER:Alireza ADDITIONAL DETAILS: Encounter Details Date Type Department Care Team (Late st Contact Info) Description 01/11/2024 Telephone [facility] Cardiology [address] [place] [address] Josiah Lay MD [address] [facility] [place] [id number] Social History Tobacco Use Types Packs/Day Years [...] CDT Gender Identity Male 08/12/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 * Telephone Encounter - Martha Lucia RN - 01/30/2024 11:02 AM CDT DK-please advise when pt is safe to resume cardiac and pulmonary rehab, pt had LHC with you last week 01/26. Thank you! * Telephone Encounter - Shell Ramirez - 01/30/2024 9:38 AM CDT Pt states he had LHC on 01/26 with DK. States he is needing a release sent to cardiac and pulmonary rehab at letting them know when he will be able to resume rehab. Contact: * Telephone Encounter - Martha Lucia RN - 01/26/2024 1:30 PM CDT MICHELE Spoke with pt, he has had a bit of a cough in the morning when he first gets up for an hour or so. Pt said he does have some phlegm sometimes but he is usually fine after that. Pt has a recent CXR that read possible PNE but he has not officially been told he has PNE or is being treated for it-he sees his pulmo next week. Pt was just inquiring about his cath tomorrow with his am cough. Reviewed DK's notes and he states anticipate right radial access d/t pts PAD- discussed this with pt and that hewould probably be fine d/t the radial access and the fact that his cough is only lasting a little while first thing in the am. Called [facility] and they already had a note about radial access. Told pt he is fine to use a cough drop in the am if needed. Pt appreciated the call back and information. * Telephone Encounter - Tiffanie Hawthorne - 01/26/2024 12:27 PM CDT Pt calling to report he takes Mucinex D along with cough drops on a regular basis. Pt states this is due to a really bad cough he struggles with. Pt would also like to report he currently has pneumonia. Pt requesting a call back to confirm this will not be an issue for scheduled LHC. Contact:[phone] * Telephone Encounter - Martha Lucia RN - 01/11/2024 2:30 PM CDT MICHELE Per DK scheduled pt for [facility] at [facility] at 1130-pt will arrive at 0800 for 2 hours prehydration NS @125/hr. Reviewed instructions and pt verbalized understanding. Pt will have preprocedural labs drawn at [facility]. documented in this encounter Plan of Treatment Scheduled Referrals Name Type Priority Associated Diagnoses Order Schedule Ambulatory referral to Cardiology Outpatient Referral Routine Abnormal stress test Angina pectoris, unstable (CMS/HCC) (HCC) Expected: 01/18/2024 (Approximate), Expires: 01/10/2025 documented as of this encounter Procedures Procedure Name Priority Date/Time Associated Diagnosis Comments CBC WITH AUTO DIFFERENTIAL Routine 01/25/2024 1:11 PM CDT Abnormal stress test Angina pectoris, unstable (CMS/HCC) (HCC) COMPREHENSIVE METABOLIC PANEL Routine 01/25/2024 1:11 PM CDT Abnormal stress test Angina pectoris, unstable (CMS/HCC) (HCC) documented in this encounter Results * (ABNORMAL) CBC with auto differential (01/25/2024 1:11 PM CDT) WBC 8.0 3.8 - 10.8 Thousand/u L [facility] RBC, POC 3.90(L) 4.20 - 5.80 Million/uL [facility] Hgb 8.8(L) 13.2 - 17.1 g/dL [facility] Hct 30.6(L) 38.5 - 50.0 % [facility] MCV 78.5(L) 80.0 - 100.0 fL [facility] MCH 22.6(L) 27.0 - 33.0 pg [facility] MCHC 28.8(L) 32.0 - 36.0 g/dL [facility] Rdw 14.9 11.0 - 15.0 % [facility] Platelets 294 140 - 400 Thousand/u L [facility] MPV 9.6 7.5 - 12.5 fL [facility] Neutrophils, abs 6,184 1,500 - 7,800 cells/uL [facility] Lymphocytes, abs 920 850 - 3,900 cells/uL [facility] Monocyte abs 648 200 - 950 cells/uL [facility] Eosinophils, abs 216 15 - 500 cells/uL [facility] Basophils, abs 32 0 - 200 cells/uL [facility] Neutrophils 77.3 % [facility] Lymphocyte pct 11.5 % [facility] Monocytes 8.1 % [facility] Eosinophils 2.7 % [facility] Basophils 0.4 % [facility] Blood 01/25/2024 1:11 PM CDT 01/25/2024 1:12 PM CDT Narrative [facility] - 01/26/2024 11:12 AM CDT FASTING:YES FASTING: YES us Josiah Lay MD LAB BLOOD ORDERABLES Final Resul t [facility] [address] [place] [address] * (ABNORMAL) Comprehensive metabolic panel (01/25/2024 1:11 PM CDT) [facility] Glucose 82 65 - 99 mg/dL [facility] Comment: ? Fasting reference interval BUN 30(H) 7 - 25 mg/dL [facility] Creatinine 2.07(H) 0.70 - 1.28 mg/dL [facility] eGFR 33(L) > OR = 60 mL/min/1.7 3m2 [facility] BUN/creat ratio 14 6 - 22 (calc) [facility] Sodium 143 135 - 146 mmol/L [facility] Potassium, pl 4.7 3.5 - 5.3 mmol/L [facility] Chloride 104 98 - 110 mmol/L [facility] CO2 28 20 - 32 mmol/L [facility] Calcium 8.6 8.6 - 10.3 mg/dL [facility] Protein, sr 6.8 6.1 - 8.1 g/dL [facility] Albumin 3.6 3.6 - 5.1 g/dL [facility] GLOBULIN 3.2 1.9 - 3.7 g/dL (calc) [facility] Alb/glob ratio 1.1 1.0 - 2.5 (calc) [facility] Bilirubin, total 0.4 0.2 - 1.2 mg/dL [facility] Alk phos 111 35 - 144 U/L [facility] AST 14 10 - 35 U/L [facility] ALT (SGPT) 10 9 - 46 U/L [facility] Blood 01/25/2024 1:11 PM CDT 01/25/2024 1:12 PM CDT Narrative [facility] - 01/26/2024 11:12 AM CDT FASTING:YES FASTING: YES us Josiah Lay MD LAB BLOOD ORDERABLES Final Resul t [facility] [address] [place] [address] documented in this encounter Visit Diagnoses Diagnosis Abnormal stress test- Primary Other nonspecific abnormal cardiovascular system function study Angina pectoris, unstable (CMS/HCC) (HCC) Intermediate coronary syndrome documented in this encounter Care Teams Work Ticket Distributor Relationship Specialty Start Date End Date Ranulfo Romo DO PCP - General Family Medicine 04/08/22 Daniela Hilario NP Nurse Practitioner Nurse Practitioner 03/26/22 documented as of this encounter
--- OUTSIDE RECORDS SUMMARY | 2024-09-12 15:39 | XMS_ITS | Encounter Summary ---
Author Organization [facility] Address [address] [place] [address] Care Team Providers Care Steam Engineer Name Role Phone Daniela Hilario ARTIFICIAL BREAST FABRICATOR Unavailable [phone] Ranulfo Romo DO Primary Care Provider [phone] Reason for Visit * Auth/Cert Specialty Diagnoses [...] ANGIOGRAPHY AND WITH OR WITHOUT LEFT VENTRICULOGRAM [id number] Referral ID Status Reason Start Date Expiration Date Visits Re quested Visits Authorized [id number] 1 1 Encounter Details Date Type Department Care Team (Latest Contact Info) Description 01/27/2024 12:50 PM CDT - 01/27/2024 2:20 PM CDT Surgery [facility] Cardiac Catheterization Lab [address] [place] [address] Josiah Lay MD [address] [address] LEFT HEART CATHETERIZATION WITH CORONARY ANGIOGRAPHY AND WITH OR WITHOUT LEFT VENTRICULOGRAM [id number] Surgery Details Date/Time Status Location OR Service Patient Class Case Class Case Type Trauma Case? 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 This includes medicines that help you sleep and anxiety medicines. Ask your healthcare provider if it is safe for you to take pain medicine. Follow up with your healthcare provider as directed: Write down your questions so you remember to ask them during your visits. Activity: - No heavy lifting (over 5 pounds) for 1 week or as directed by your electrical logger. - No driving for 2 days after [...] ANGIOGRAPHY AND WITH OR WITHOUT LEFT VENTRICULOGRAM [id number] Source Note - Josiah Lay MD - 01/11/2024 1:30 PM CDT [facility] CARDIOLOGY 01/11/2024 CHIEF COMPLAINT [...] to local area in October 2020 from [place], [place]. Patient has extensive cardiovascular history. His [...] placement. He denies any history of clinical DC, angina. At present, patient has dyspnea on [...] routine follow-up visit. He was hospitalized at [facility] in June 2021 with worsening shortness of [...] medical regimen. Patient is on home oxygen. 12/30/20211630-[id number] visit today, patient reports worsening discomfort in [...] patient denies any significant claudication at present. He states that he does regular water exercises which have helped him. His activity is limited due to baseline dyspnea on mild exertion from his underlying COPD. He uses oxygen at night. Denies chest pain. No palpitation, dizziness or syncope. Reports compliance with current medical regimen. Denies any bleeding complications. 05/04/2023-on the follow-up visit today, patient [...] kidney disease) stage 3, GFR 30-59 ml/min ([facility]), Claudication ([facility]), COPD (chronic obstructive pulmonary disease) ([facility]), Cough, COVID-19 (05/2020), Cramps of lower extremity, Easy bruisability, Empyema ([facility]/HCC) ([facility]) (05/2020), Fatigue, GERD (gastroesophageal reflux disease), Hyperkalemia, Hypertension, Irregular heart beat, PAD (peripheral artery disease) ([facility]), Pneumonia (2018), Sleep apnea, SOB (shortness of [...] endarerectomyy (Right, 2013); Tonsillectomy; Other surgical history (20192020); Colonoscopy; Hernia repair (2015); and IR Central [...] potassium 4.6, creatinine 1.91, GFR 35;. 03/24/2021 [facility] EKG-sinus rhythm, left bundle-branch block. 05/13/2021 Carotid duplex-less than 50% stenosis bilateral ICA. 05/27/2021 [facility] SULEMA/Doppler-right SULEMA 0.66, right TBI 0.35. Arterial waveforms are biphasic with brisk systolic upstroke throughout. Left SULEMA 0.81, left SULEMA 0.64. Arterial waveforms are biphasic with brisk systolic upstroke throughout. 05/27/2021 [facility] Venous duplex-no DVT. 07/17/2021 [facility] Echo-Normal left ventricular size. Definity contrast agent [...] pacemaker in situ NSVT (nonsustained ventricular tachycardia) ([facility]) - Transthoracic Echo (TTE) Complete W Doppler/CF; Future PAD (peripheral artery disease) ([facility]) Claudication ([facility]) Mild aortic stenosis Essential hypertension Chronic respiratory failure with hypoxia, on home O2 therapy (CMS/HCC) ([facility]) Chronic kidney disease, unspecified CKD stage Other [...] was used to complete this document, therefore, engineer intern variances may occur. documented in this encounter [...] that you and your doctor have chosen [facility] for your surgery. We hope that the following information will help make your visit a pleasant one. Surgery Date: 01/27/2024 Arrive at 8:00 A.M. [facility] Surgery [facility] (look for sign reading ???EMERGENCY - SURGERY CENTER?? ) [address] [place] [address] Before your surgery: Notify your doctor of [...] is not recommended by your physician). Fish Oil/[place] 3, Co Q 10, Cod Liver Oil, [...] soap (Example: Dove Antibacterial soap, Gold Dial, Togolese Spring, Zest, Safeguard, Coast) wash your body [...] insurance cards, and medication list (including all bmkf-oah-msfgsla medications) with you. Prescriptions can be filled [...] kidney disease) stage 4, GFR 15-29 ml/min ([facility]/HCC) ([facility]) Angina pectoris, unstable (CMS/HCC) ([facility]) Abnormal stress test documented in this encounter [...] groin hematoma, retroperitoneal bleed, vessel perforation; periprocedural DC, cardiac arrhythmias, stroke, contrast induced nephropathy, and . ?? After discussing all the benefits, risks and alternatives, patient was willing to proceed with the procedure. PROCEDURES PERFORMED: Left heart catheterization- ??selective left and right coronary angiogram, LV pressure management and hemodynamic assessment Moderate sedation-CPT code 71798 MODERATE SEDATION: Midazolam 1 mg , Fentanyl 25 mcg, start time ?1116 stop time ?? 1140, total direct eior-hk-dqak monitoring of conscious sedation ?24 minutes (CPT 22489) TRAINED OBSERVER: Tigre Carrizales RN was trained observer for moderate sedation. ACCESS SITE: ??Right radial artery PROCEDURE: ??After obtaining informed consent, patient was brought to the fish farm laborer and prepped and draped in the usual sterile manner. ??Time-out and immediate reassessment of the patient was performed. ??After local anesthesia with lidocaine, right radial access was taken with micropuncture needle followed by insertion of a 6 Ecuadorean sheath. ?? Selective left and right coronary [...] single-vessel CAD-chronic total occlusion proximal RCA with ypom-oz-rtytc collaterals. ??No significant obstructive disease in the left coronary system. LVEDP 10 mmHg. Systemic hypertension PLAN/RECOMMENDATIONS: ??Continuation of optimal medical treatment including antiplatelet treatment, antianginals, statin. ??Need for intervention on MERCHANDISE FOR RESALE PURCHASING AGENT of RCA to be determined based on clinical course. Voice recognition software was used to complete this document, therefore, engineer intern variances may occur. Josiah Lay MD, [facility] 01/27/24 Josiah Lay MD CV CARDIAC CATH PROCEDURES Final Result documented in this encounter Visit Diagnoses Diagnosis CKD (chronic kidney disease) stage 4, GFR 15-29 ml/min (CMS/HCC) (HCC) Chronic kidney disease, Stage IV (severe) Angina pectoris, unstable (CMS/HCC) ([facility]) Intermediate coronary syndrome Abnormal stress test Other nonspecific abnormal cardiovascular system function study CKD (chronic kidney disease) stage 4, GFR 15-29 ml/min ([facility]) (HCC) Chronic kidney disease, Stage IV (severe) Angina pectoris, unstable ([facility]/HCC) ([facility]) Intermediate coronary syndrome Abnormal stress test Other nonspecific abnormal cardiovascular system function study documented in this encounter Admitting Diagnoses Diagnosis CKD (chronic kidney disease) stage 4, GFR 15-29 ml/min ([facility]) (HCC) Chronic kidney disease, Stage IV (severe) Angina pectoris, unstable (CMS/[facility]) ([facility]) Intermediate coronary syndrome Abnormal stress test Other nonspecific abnormal cardiovascular system function study documented in this encounter Administered Medications Inactive Administered Medications - up to 3 most recent administrations Medication Order MAR Action Action Date Dose Rate Site fentaNYL (SUBLIMAZE) preservative free injection Code/trauma/sedation medication, Starting on Tue01/27/24 at 1116, Intra-Procedure (CV) Given 01/27/2024 11:16 AM CDT 25 mcg heparin 1,000 unit/mL injection Code/trauma/sedation medication, Starting on Tue01/27/24 at 1125, Intra-Procedure (CV) Given 01/27/2024 11:25 AM CDT 5,000 Units heparin in 0.9% sodium chloride 1,000 units/500 mL (2 unit/mL) infusion (premix) Code/trauma/sedation medication, Starting on Tue01/27/24 at 1107, Intra-Procedure (CV) Given 01/27/2024 11:07 AM CDT 500 mL iodixanoL (VISIPAQUE) 320 mg iodine/mL injection Code/trauma/sedation medication, Starting on Tue01/27/24 at 1145, Intra-Procedure (CV) Given 01/27/2024 11:45 AM CDT 50 mL lidocaine (XYLOCAINE) 10 mg/mL (1 %) injection Code/trauma/sedation medication, Starting on Tue01/27/24 at 1124, Intra-Procedure (CV), Indications: Administration of Local AnesthesiaIndications:Ad ministration of Local Anesthesia Given 01/27/2024 11:24 AM CDT 2 mL Right Wrist midazolam (VERSED) 1 mg/mL preservative free injection Administer over 2 Minutes, Code/trauma/sedation medication, Starting on Tue01/27/24 at 1116, Intra-Procedure (CV) Given 01/27/2024 11:16 AM CDT 1 mg sodium chloride 0.9% infusion 125 mL/hr, intravenous, Continuous, Starting on Tue01/27/24 at 0845, For 2 hours, Pre-Procedure (CV) New Bag 01/27/2024 9:00 AM CDT 125 mL/hr 125 mL/hr sodium chloride 0.9% infusion 125 mL/hr, intravenous, Continuous, Starting on Tue01/27/24 at 1230, Till discharge verapamiL (ISOPTIN) injection Administer over 2 Minutes, Code/trauma/sedation medication, Starting on Tue01/27/24 at 1125, Intra-Procedure (CV) Given 01/27/2024 11:25 AM CDT 2.5 mg Right Arm documented in this encounter Discontinued Medications Medication [...] 0900 (New Bag - Prov ider: Roxanna Hooper RN) sodium chloride 0.9% infusion 125 mL/hr, intravenous, [...] Intra-Procedure (CV) 1125 (Given - Provid er: Suyapa Armstrong RN) heparin in 0.9% sodium chloride [...] Count Last Ordered Date First Ordered Date sodium chloride 0.9% infusion 1 01/27/2024 Discharge Count Last Ordered Date First Orde red Date DISCHARGE PATIENT 1 01/27/2024 documented in this encounter Care Teams Steam Engineer Relationship Specialty Start Date End Date Ranulfo Romo DO PCP - General Family Medicine 04/08/22 Daniela Hilario NP Nurse Practitioner Nurse Practitioner 03/26/22 documented as of this encounter
--- OUTSIDE RECORDS SUMMARY | 2024-09-12 15:40 | XMS_ITS | Encounter Summary ---
Author Organization [facility] Address [address] [place] [address] Phone Care Team Providers Care Guidance Secretary Name Role Phone Ross Espinosa MD Primary Care Provider [phone] Daniela Hilario ORCHESTRATOR Unavailable [phone] Encounter Details Date Type Department Care Team (Late st Contact Info) Description 04/05/[address] 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 Pt told me he would like for me to cx appointment because he would like to speak with his electronic warfare operator for an second opinion and he is in the process of changing insurance so he will not be having surgery no time soon he will Give us a call when he is ready documented in this encounter Plan of Treatment Not on file documented as of this encounter Visit Diagnoses Not on filedocumented in this encounter Care Teams Guidance Secretary Relationship Specialty Start Date End Date Ross Espinosa MD [address] [place] [address] PCP - General 03/03/22 04/07/22 Daniela Hilario NP [address] [place] [address] Nurse Practitioner Nurse Practitioner 03/26/22 documented as of this encounter
--- OUTSIDE RECORDS SUMMARY | 2024-09-12 15:40 | XMS_ITS | Encounter Summary ---
Author Organization [facility] Address [address] [place] [address] Care Team Providers Care Floor Coverings Salesperson Name Role Phone Daniela Hilario ICE CUTTER Unavailable [phone] Ranulfo Romo DO Primary Care Provider [phone] Reason for Visit * Reason Comments Follow-up 8/9 month follow up. 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 Sexual Orientation Not on file documented as of this encounter Last Filed Vital Signs Vital Sign Reading Time Taken Comments Blood Pressure 130/68 05/04/2023 1:01 PM CDT Pulse 66 05/04/2023 1:01 PM CDT Temperature - - Respiratory Rate - - Oxygen Saturation 95% 05/04/2023 1:01 PM CDT Inhaled Oxygen Concentration - - Weight 87.5 kg (193 lb) 05/04/2023 1:01 PM CDT Height 172.7 cm (5' 8) 05/04/2023 1:01 PM CDT Body Mass Index 29.35 05/04/2023 1:01 PM CDT documented in this encounter Ordered Prescriptions Prescription Sig Dispense Quantity Refills Last Filled Start Date End Date cilostazoL (PLETAL) 50 mg tabletIndications: Intermittent Claudication Take 1 tablet (50 mg total) by mouth 2 (two) times a day 60 tablet 11 05/04/2023 09/08/2023 aspirin 81 mg enteric coated tablet Take 1 tablet (81 mg total) by mouth daily 30 tablet 11 05/04/2023 11/14/2023 documented in this encounter Progress Notes * Josiah Lay MD - 05/04/2023 1:00 PM CDT [facility] CARDIOLOGY 05/04/2023 CHIEF COMPLAINT Cardiovascular management HPI Freddy Hill is a 72 y.o. male with hypertension, history of AV block status post Medtronic pacemaker placement in June 2020, peripheral artery disease involving left lower extremity and carotid arteries, status post left lower extremity intervention; status post right carotid enterectomy; COPD, history of COVID-19 infection. 05/13/2021 initial evaluation-patient is here to reestablish cardiovascular care. Patient states that he moved to local area in October 2020 from [place], [place]. Patient has extensive cardiovascular history. His [...] placement. He denies any history of clinical [place], angina. At present, patient has dyspnea on [...] routine follow-up visit. He was hospitalized at [facility] in June 2021 with worsening shortness [...] medical regimen. Patient is on home oxygen. 12/30/[id number] visit today, patient reports worsening discomfort in [...] pain. Reports compliance with current medical regimen. MEDICAL HISTORY he has a past medical history of Anemia, Arthritis, Asthma, AV block, Carotid stenosis, CKD (chronic kidney disease) stage 3, GFR 30-59 ml/min ([facility]), Claudication ([facility]), COPD (chronic obstructive pulmonary disease) ([facility]), Cough, COVID-19 (05/2020), Cramps of lower extremity, Easy bruisability, Empyema ([facility]/HCC) ([facility]) (05/2020), Fatigue, GERD (gastroesophageal reflux disease), Hyperkalemia, Hypertension, Irregular heart beat, PAD (peripheral artery disease) ([facility]), Pneumonia (2018), Sleep apnea, SOB (shortness of [...] (06/2020); Hip Arthroplasty (Bilateral); carotid endarerectomyy (Right, 2014); Tonsillectomy; Other surgical history (2019, 2020); Colonoscopy; Hernia repair (2015); and IR Central Line Placement > 5 Years (N/A, 06/19/2021). he No Known Allergies Current Outpatient Medications Medication Sig Dispense Refill ??? acetaminophen 500 mg capsule Take 2 capsules (1,000 mg total) by mouth every 6 (six) hours 30 tablet ??? albuterol 2.5 mg /3 mL (0.083 %) nebulizer solution INHALE 3 ML 3 TIMES A DAY BY NEBULIZATION ROUTE FOR 30 DAYS. ??? albuterol HFA (PROVENTIL HFA,VENTOLIN HFA,PROAIR HFA) 90 mcg/actuation inhaler INHALE 2 PUFFS EVERY 4 HOURS BY INHALATION ROUTE NEEDED FOR 30 DAYS. ??? carvediloL (COREG) 25 mg tablet Take 1.5 tablets (37.5 mg total) by mouth 2 (two) times a day ??? cetirizine 10 mg capsule Take by mouth ??? doxepin (SINEquan) 25 mg capsule Take 1 capsule (25 mg total) by mouth nightly ??? dupilumab (DUPIXENT) syringe Inject 2 mL (300 mg total) under the skin every 14 (fourteen) days ??? fluticasone propion-salmeteroL (ADVAIR DISKUS) 500-50 mcg/dose diskus inhaler Inhale 1 puff 2 (two) times a day ??? furosemide (LASIX) 40 mg tablet Take 1 tablet (40 mg total) by mouth daily ??? gabapentin (NEURONTIN) 300 mg capsule Take 1 capsule (300 mg total) by mouth daily as needed ??? multivitamin capsule Take 1 capsule by mouth daily ??? oxygen Administer 3 L/min into each nostril as needed (hypoxia). Indications: trouble breathing ??? pantoprazole DR (PROTONIX) 40 mg EC tablet TAKE 1 TABLET BY MOUTH EVERY DAY 90 tablet 3 ??? potassium chloride ER (KLOR-CON) 10 mEq CR tablet Take 1 tablet/capsule (10 mEq total) by mouthdaily ??? rivaroxaban (XARELTO) 2.5 mg tablet Take 1 tablet (2.5 mg total) by mouth 2 (two) times a day 60 tablet 11 ??? Spiriva Respimat 2.5 mcg/actuation inhaler INHALE 2 PUFFS BY MOUTH ONCE DAILY ??? tamsulosin (FLOMAX) 0.4 mg extended release capsule Take 2 capsules (0.8 mg total) by mouth daily with dinner ??? traMADoL (ULTRAM) 50 mg tablet Take 1 tablet (50 mg total) by mouth every 6 (six) hours as needed ??? triamcinolone (KENALOG) 0.1 % ointment Apply topically ??? amLODIPine (NORVASC) 5 mg tablet TAKE 1 TABLET BY MOUTH EVERY MORNING (Patient not taking: Reported on 05/04/2023) 30 tablet 11 ??? aspirin 81 mg enteric coated tablet Take 1 tablet (81 mg total) by mouth daily 30 tablet 11 ??? atorvastatin (LIPITOR) 80 mg tablet Take 1 tablet (80 mg total) by mouth daily 30 tablet 11 ??? cephalexin (KEFLEX) 500 mg capsule TAKE 1 CAPSULE BY MOUTH EVERY 8 HOURS ??? cilostazoL (PLETAL) 50 mg tablet Take 1 tablet (50 mg total) by mouth 2 (two) times a day 60 tablet 11 ??? cloNIDine (CATAPRES) 0.1 mg tablet Take 0.1 mg by mouth daily (Patient not taking: Reported on 05/04/2023) ??? finasteride (PROSCAR) 5 mg tablet Take 5 mg by mouth daily ??? melatonin 5 mg capsule Take by mouth [...] Positive for shortness of breath Cardiovascular ROS: negative for - chest pain, positive for chronic shortness of breath after walking less than 1 block Gastrointestinal ROS: negative for - abdominal pain Endocrine ROS: negative for - hot flashes, polydipsia/polyuria Musculoskeletal ROS: Bilateral calf claudication Neurological ROS: negative for - [...] potassium 4.6, creatinine 1.91, GFR 35;. 03/24/2021 [facility] EKG-sinus rhythm, left bundle-branch block. 05/13/2021 Carotid duplex-less than 50% stenosis bilateral ICA. 05/27/2021 [facility] SULEMA/Doppler-right SULEMA 0.66, right TBI 0.35. Arterial waveforms are biphasic with brisk systolic upstroke throughout. Left SULEMA 0.81, left SULEMA 0.64. Arterial waveforms are biphasic with brisk systolic upstroke throughout. 05/27/2021 [facility] Venous duplex-no DVT. 07/17/2021 [facility] Echo-Normal left ventricular size. Definity contrast [...] glucose 107. 05/04/2023 PHYSICAL EXAM Vitals BP 130/68 (BP Location: Left arm, Patient Position: Sitting) Pulse 66 Ht 172.7 cm (5' 8) Wt 87.5 kg (193 lb) SpO2 95% BMI 29.35 kg/m?? General appearance - alert, no distress, [...] Diagnoses and all orders for this visit: Claudication (HCC) (Primary) PAD (peripheral artery disease) ([facility]) History of complete AV block Cardiac pacemaker in situ [Z95.0 (ICD-10-CM)] Mild aortic stenosis Other orders - aspirin 81 mg enteric coated tablet; Take 1 tablet (81 mg total) by mouth daily - cilostazoL (PLETAL) 50 mg tablet; Take 1 tablet (50 mg total) by mouth 2 (two) times a day PLAN/RECOMMENDATIONS 72 y.o. male with hypertension, history of AV block status post Medtronic pacemaker placement in June 2020, peripheral artery disease involving left lower extremity and carotid arteries, status post left lower extremity intervention; status post right carotid enterectomy; COPD/chronic respiratory failure on home oxygen at night, history of COVID-19 infection. - patient has known peripheral artery disease and stable claudication at present. Previous angiogram showed aortoiliac and femoral disease. Vascular surgery was consulted, and patient was anticipatedto undergo possible surgical revascularization. Patient declined surgery. At this time, patient would like to pursue medical treatment and daily walking. He will let us know if he has any worsening symptoms of claudication. Add cilostazol that may help improve walking distance. - continue antiplatelet treatment and anticoagulation with low-dose rivaroxaban 2.5 mg p.o. b.i.d..Will change clopidogrel to aspirin 81 mg p.o. daily. -Continue high-dose atorvastatin. LDL improved to 46. Target LDL less than 55. -patient updated about previous MPI which showed infarct without ischemia. He does not have angina at present. Continue medical treatment including antiplatelet and statin. Will consider invasive ischemic evaluation based on clinical course. Patient would like to pursue medical treatment for now. - follow-up with Nephrology for management of CKD. -periodic surveillance echocardiogram for progression of aortic stenosis - previous hospitalization for COPD exacerbation with volume overload. Currently has chronic dyspnea on exertion after walking less than 1 block, which is predominantly secondary to underlying lung condition. Advised to continue to follow-up with pulmonology. Continue supplemental oxygen. -blood pressure is controlled. Continue current antihypertensives. Low-salt diet counseling was done. -periodic pacemaker interrogations. -periodic surveillance echocardiogram for progression of aortic stenosis. -Counseling was done for heart healthy/low-salt diet, aerobic activity as tolerated. -follow-up in about 8-9 months or sooner if needed. Josiah Lay MD 05/04/23 Voice recognition software was used to complete this document, therefore, reservations specialist variances may occur. documented in this encounter Miscellaneous Notes * Addendum Note - Leatha Thorne MA - 05/04/2023 1:00 PM CDTAddended by: LEATHA THORNE on: 05/04/2023 01:48 PM Modules accepted: Orders documented in this encounter Plan of Treatment Not on file documented as of this encounter Procedures Procedure Name Priority Date/Time Associated Diagnosis Comments POCT LIPID PANEL Routine 05/04/2023 1:47 PM CDT Lipid screening documented in this encounter Results * POCT lipid panel (05/04/2023 1:47 PM CDT) Cholesterol, POC <100 mg/dL HDL, POC 38 mg/dL Triglycerides, POC 71 mg/dL LDL Cholesterol POC 46 mg/dL Chol/HDL Ratio, POC N/A Non-HDL Cholesterol, POC N/A mg/dL Cholesterol Total, POC <100 mg/dL Capillary blood 05/04/2023 1 :47 PM CDT Josiah Lay MD POINT OF CARE TEST ORDERABLES Fi nal Result documented in this encounter Visit Diagnoses Diagnosis Claudication (HCC)- Primary Unspecified peripheral vascular disease PAD (peripheral artery disease) (HCC) Unspecified peripheral vascular disease History of complete AV block Cardiac pacemaker in situ [Z95.0 (ICD-10-CM)] Cardiac pacemaker in situ Mild aortic stenosis Aortic valve disorders Lipid screening Screening for lipoid disorders documented in this encounter Discontinued Medications Medication Sig Discontinue Reason Start Date End Da te clopidogreL (PLAVIX) 75 mg tablet Take 1 tablet (75 mg total) by mouth daily 04/17/2021 05/04/2023 documented as of this encounter Care Teams Floor Coverings Salesperson Relationship Specialty Start Date End Date Ranulfo Romo DO PCP - General Family Medicine 04/08/22 Daniela Hilario NP Nurse Practitioner Nurse Practitioner 03/26/22 documented as of this encounter
--- OUTSIDE RECORDS SUMMARY | 2024-09-12 15:40 | XMS_ITS | Encounter Summary ---
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 * Telephone Encounter - Chloe Grijalva MA - 03/17/2023 2:52 PM CDT Pt scheduled for in office device check on 05-04-2023 per Smaia, called pt to inform but had to lmor, detailed message left and appt reminder sent documented in this encounter Plan of Treatment Not on file documented as of this encounter Visit Diagnoses Not on filedocumented in this encounter Care Teams Wood Repatcher Relationship Specialty Start Date End Date Ranulfo Romo DO PCP - General Family Medicine 04/08/22 Daniela Hilario NP Nurse Practitioner Nurse Practitioner 03/26/22 documented as of this encounter
--- OUTSIDE RECORDS SUMMARY | 2024-09-12 15:40 | XMS_ITS | Encounter Summary ---
Author Organization [facility] Address [address] [place] [address] Care Team Providers Care Maltster Name Role Phone Daniela Hilario INSOLE CHANNELER Unavailable [phone] Ranulfo Romo DO Primary Care Provider [phone] Encounter Details Date Type Department Care Team (Late st Contact Info) Description 04/13/2022 Telephone [facility] Cardiology [address] [facility] [address] [place] [address] Josiah Lay MD [address] [place] [address] Social History Tobacco Use Types Packs/Day Years [...] CDT Gender Identity Male 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 Pt does not have another appt scheduled so I lm to call to schedule an appt in thenext few months since DK books up. * Telephone Encounter - Josiah Lay MD - 04/15/2022 4:40 PM CDT I can see him on the follow-up visit as previously scheduled and see if he still needs cardiac catheterization * Telephone Encounter - Molly Louis RN - 04/13/2022 9:57 AM CDT DK- this pt has canceled his procedure for now with Dr Zhao. He has decided he does not want to have surgery at this time. He would rather try to lose some weight and just know his limitations. He is asking if you still feel he needs the LHC done? He is not having any cardiac symptoms such asCP . He does have some SOB with exertion which he relates to his COPD and it resolves when he slowsdown. I did instruct pt that he should let us know if he develops any CP, pressure, new SOB or change in symptoms and he would need the test. Please advise ( pt already sees Dr Kahn) * Telephone Encounter - Molly Louis RN - 04/13/2022 9:56 AM CDT ----- Message from Josiah Lay MD sent at 04/12/2022 4:15 PM CDT ----- Let patient know that he has mild to moderate impairment in the heart function and stress test is abnormal. He will need cardiac catheterization prior to vascular surgery. Please schedule him for cardiac catheterization at [facility]. He will need prehydration with normal saline per protocol. Advise him to see a rock star as well. Thank you documented in this encounter Plan of Treatment Not on file documented as of this encounter Visit Diagnoses Not on filedocumented in this encounter Care Teams Maltster Relationship Specialty Start Date End Date Ranulfo Romo DO PCP - General Family Medicine 04/08/22 Daniela Hilario NP Nurse Practitioner Nurse Practitioner 03/26/22 documented as of this encounter
--- OUTSIDE RECORDS SUMMARY | 2024-09-12 15:40 | XMS_ITS | Encounter Summary ---
Author Organization [facility] Address [address] [facility] [facility] [address] [place] [address] Care Team Providers Care Fruit Or Nut Grower Name Role Phone Daniela Hilario KNUCKLE BENDER Unavailable [phone] Ranulfo Romo DO Primary Care Provider [phone] Encounter Details Date Type Department Care Team (Late st Contact Info) Description 04/29/2022 Telephone [facility] Cardiology [address] [email or web address] [address] [place] [address] Josiah Lay MD [address] [place] [address] Social History Tobacco Use Types Packs/Day Years [...] CDT Gender Identity Male 08/12/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 They needed a clearance signed after the ST. Discussed with DK. Per his note, call placed to pt . Pt denies any CP or SOB. He states I am doingpretty good actually * Telephone Encounter - Emely Duke RN - 04/30/2022 3:01 PM CDT Cardiac clearance re-faxed. * Telephone Encounter - Martha Lucia RN - 04/29/2022 4:08 PM CDT Noted, will address when clearance is received. * Telephone Encounter - Emely Duke RN - 04/29/2022 4:07 PM CDT Received fax from Ella at [facility]. Cardiac clearance form was signed and medication holds addressed but level of risk not addressed. Will forward to DK to ask which risk level pt isfor surgery: cystoscopy, cod knife direct vision internal urethrotomy. * Telephone Encounter - Tiki Garber - 04/29/2022 3:57 PM CDT Ella called from [facility] Surgery Dept,states pt is rescheduled for a Cystoscopy 05/10(Urology), asking if he is cleared and if so if he can hold Xarelto and ASA. Advised to re-send the cardiac clearance request,[phone] fax number given.Thank you Contact:[phone] documented in this encounter Plan of Treatment Not on file documented as of this encounter Visit Diagnoses Not on filedocumented in this encounter Care Teams Fruit Or Nut Grower Relationship Specialty Start Date End Date Ranulfo Romo DO PCP - General Family Medicine 04/08/22 Daniela Hilario, SHASHANK Nurse Practitioner Nurse Practitioner 03/26/22 documented as of this encounter
--- OUTSIDE RECORDS SUMMARY | 2024-09-12 15:40 | XMS_ITS | Encounter Summary ---
Author Organization [facility] Address [address] [facility] [address] [place] [address] Care Team Providers Care High School Agriculture Teacher Name Role Phone Daniela Hilario DIRECTOR OF CONTENT AND PROGRAMMING Unavailable [phone] Ranulfo Romo DO Primary Care Provider [phone] Reason for Visit * Cardiology (Routine) - Closed Specialty Diagnoses / Procedures Referred By Jovany carver Referred To Contact Diagnoses History of complete AV block Procedures DEVICE CHECK - REMOTE Josiah Lay MD [address] [place] [address] Phone: tel: fax: [facility] Referral ID Status Reason Start Date Expiration Date Visits Re quested Visits Authorized [id number] Closed 02/17/2022 08/19/2023 1 1 Encounter Details Date Type Department Care Team (Latest Contact Info) Description 03/21/2023 1:45 PM CDT Ancillary Procedure [facility] [address] [place] [id number] Cardiac pacemaker in situ [Z95.0 (ICD-10-CM)] (Primary Dx); History of complete AV block [...] CDT Gender Identity Male 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 Dx; Second Degree AVB, Symptomatic Bradycardia. DOI 05/02/2019-Dr Zenia Good ([place]). Carelink remote. Routine Pacemaker remote. Normal device function. Battery function-2.96V, 5.0 years remaining battery life to HERMELINDO. Appropriate lead measurements. Presenting zmunps-[id number]. AP-20%, ENGRAVING PLATE MAKER->99%. No Atrial high rate episodes noted. No Ventricular high rate episodes noted. ?? Medications; Xarelto, Plavix, Coreg, Norvasc. See scanned report. Office pacemaker f/u and ROV with Dr Lay 05/04/2023. Samia José RN Josiah Lay MD [facility] PROCEDURES F inal Result documented in this encounter Visit Diagnoses Diagnosis Cardiac pacemaker in situ [Z95.0 (ICD-10-CM)]- Primary Cardiac pacemaker in situ History of complete AV block documented in this encounter Care Teams High School Agriculture Teacher Relationship Specialty Start Date End Date Ranulfo Romo DO PCP - General Family Medicine 04/08/22 Daniela Hilario NP Nurse Practitioner Nurse Practitioner 03/26/22 documented as of this encounter
--- OUTSIDE RECORDS SUMMARY | 2024-09-12 15:40 | XMS_ITS | Encounter Summary ---
Author Organization [facility] Address [address] [place] [address] Phone Care Team Providers Care Corporate Operations Compliance Manager Name Role Phone Daniela Hilario CATALYST UNIT OPERATOR Unavailable [phone] Ranulfo Romo DO Primary Care Provider [phone] Encounter Details Date Type Department Care Team (Late st Contact Info) Description 04/14/2022 Telephone [facility] Surgery [address] [facility] Medical Office Building [address] [place] [address] [place]lan Busch [place] [id number] [place] [address] [address] [id number] Social History Tobacco Use Types Packs/Day Years [...] CDT Gender Identity Male 08/12/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
--- OUTSIDE RECORDS SUMMARY | 2024-09-12 15:40 | XMS_ITS | Encounter Summary ---
Author Organization [facility] Address [address] [place] [address] Phone Care Team Providers Care Hotel Maintenance Worker Name Role Phone Ross Espinosa MD Primary Care Provider [phone] Daniela Hilario SEW OUT OPERATOR Unavailable [phone] Reason for Visit * Reason Onset Date Comments Postpone Surgery 04/02/2022 Encounter Details Date Type Department Care Team (Late st Contact Info) Description 04/02/[address] 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 Patient will call back to reschedule when he is feeling better. James Anderson was emailed to put patient back into the depot until he is ready to scheduled. documented in this encounter Plan of Treatment Not on file documented as of this encounter Visit Diagnoses Not on filedocumented in this encounter Care Teams Hotel Maintenance Worker Relationship Specialty Start Date End Date Ross Espinosa MD [address] [place] [address] PCP - General 03/03/22 04/07/22 Daniela Hilario NP [address] [place] [address] Nurse Practitioner Nurse Practitioner 03/26/22 documented as of this encounter
--- OUTSIDE RECORDS SUMMARY | 2024-09-12 15:40 | XMS_ITS | Encounter Summary ---
Author Organization [facility] Address [address] [facility] [address] [place] [address] Care Team Providers Care Electromechanical Technologist Name Role Phone Daniela Hilario CLOTH COVERER Unavailable [phone] Ranulfo Romo DO Primary Care Provider [phone] Encounter Details Date Type Department Care Team (Late st Contact Info) Description 03/23/2023 Telephone [facility] Cardiology [address] [facility] [address] [place] [address] Josiah Lay MD [address] [place] [address] Social History Tobacco Use Types Packs/Day Years [...] CDT 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 Contact:[phone] documented in this encounter Plan of Treatment Not on file documented as of this encounter Visit Diagnoses Not on filedocumented in this encounter Care Teams Electromechanical Technologist Relationship Specialty Start Date End Date Ranulfo Romo DO PCP - General Family Medicine 04/08/22 Daniela Hilario NP Nurse Practitioner Nurse Practitioner 03/26/22 documented as of this encounter
--- OUTSIDE RECORDS SUMMARY | 2024-09-12 15:40 | XMS_ITS | Encounter Summary ---
Author Organization [facility] Address [address] [facility] [address] [place] [address] Care Team Providers Care Heel Scourer Name Role Phone Ross Espinosa MD Primary Care Provider [phone] Daniela Hilario NP Unavailable [phone] Ranulfo Romo DO Primary Care Provider [phone] Encounter Details Date Type Department Care Team (Late st Contact Info) Description 04/01/2022 Telephone [facility] Cardiology [address] [facility] [address] [place] [address] Josiah Lay MD [address] [place] [id number] Social History Tobacco Use Types Packs/Day Years [...] CDT Gender Identity Male 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 Nurse fax number given to refax. * Telephone Encounter - Shell Malin - 04/01/2022 9:22 AM CDT Apryl called from Dr. Busch office states she faxed a cardiac clearance request on 03/24 and is re faxing again today. Requesting call back to confirm it was received. Contact: documented in this encounter Plan of Treatment Not on file documented as of this encounter Visit Diagnoses Not on filedocumented in this encounter Care Teams Heel Scourer Relationship Specialty Start Date End Date Ross Espinosa MD [address] [place] [address] PCP - General 03/03/22 04/07/22 Ranulfo Romo DO [address] [place] [address] PCP - General Family Medicine 04/08/22 Daniela Hilario NP [address] [place] [address] Nurse Practitioner Nurse Practitioner 03/26/22 documented as of this encounter
--- OUTSIDE RECORDS SUMMARY | 2024-09-12 15:40 | XMS_ITS | Encounter Summary ---
Author Organization 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 Sexual Orientation Not on file documented as [...] a day 02/13/2022 furosemide (LASIX) 40 mg tabletIndication s:per md advisement Take 1 tablet (40 mg total) by mouth daily gabapentin (NEURONTIN) 300 mg capsule Take 1 capsule (300 mg total) by mouth daily as needed oxygenIndication s:Dyspnea Administer 2 L/min into each nostril as needed (hypoxia) 06/24/2021 potassium chloride ER (KLOR-CON) 10 mEq CR tabletIndication s:hypokalemia Take 1 tablet/capsule (10 mEq total) by mouth daily tamsulosin (FLOMAX) 0.4 mg extended release capsule Take 2 capsules (0.8 mg total) by mouth daily with dinner 06/23/2021 traMADoL (ULTRAM) 50 mg tablet Take 1 tablet (50 mg total) by mouth every 6 (six) hours as needed 04/08/2021 atorvastatin (LIPITOR) 80 mg tablet Take 1 tablet (80 mg total) by mouth daily 30 tablet 11 03/17/2022 3 cephalexin (KEFLEX) 500 mg capsule TAKE 1 CAPSULE BY MOUTH EVERY 8 HOURS 01/07/2022 4 cetirizine 10 mg capsule Take by mouth 4 clopidogreL (PLAVIX) 75 mg tablet Take 1 tablet (75 mg total) by mouth daily 04/17/2021 3 fluticasone propion-salmeter oL (ADVAIR DISKUS) 500-50 mcg/dose diskus inhaler Inhale 1 puff 2 (two) times a day 10/06/2021 4 melatonin 5 mg capsule Take by mouth 4 multivitamin capsule Take 1 capsule by mouth daily [address] (PROTONIX) 40 mg EC tablet Take 1 tablet (40 mg total) by mouth daily 30 tablet 10/22/2021 3 rivaroxaban (XARELTO) 2.5 mg tablet Take 1 tablet (2.5 mg total) by mouth 2 (two) times a day 60 tablet 03/03/2022 3 Spiriva Respimat 2.5 mcg/actuation inhaler INHALE 2 PUFFS BY MOUTH ONCE DAILY 04/21/2021 5 documented as of this encounter Discharge Disposition Disposition Code Departure Means Destination Discharge to home or self care documented in this encounter Plan of Treatment Not on file documented as of this encounter Visit Diagnoses Not on filedocumented in this encounter Care Teams Drying Machine Operator Relationship Specialty Start Date End Date Ranulfo Romo DO PCP - General Family Medicine 04/08/22 Daniela Hilario NP Nurse Practitioner Nurse Practitioner 03/26/22 documented as of this encounter
--- OUTSIDE RECORDS SUMMARY | 2024-09-12 15:40 | XMS_ITS | Encounter Summary ---
Author Organization [facility] Address [address] [facility] [address] [place] [address] Care Team Providers Care Dumpster Operator Name Role Phone Daniela Hilario SOURCING SPECIALIST Unavailable [phone] Ranulfo Romo DO Primary Care Provider [phone] Reason for Visit * Diagnostic Imaging (Routine) - Closed Specialty Diagnoses / Procedures Referred By Jovany carver Referred To Contact Diagnoses PAD (peripheral artery disease) (HCC) Claudication (HCC) MONTEZ (dyspnea on exertion) Procedures NM MPI SPECT (Rest and/or Stress) Multiple Studies Josiah Baca MD [address] [address] Phone: tel: fax: [facility] Referral ID Status Reason Start Date Expiration Date Visits Re quested Visits Authorized [id number] Closed 03/17/2022 04/16/2023 1 1 Encounter Details Date Type Department Care Team (Latest Contact Info) Description 04/08/2022 9:15 AM CDT Ancillary Procedure [facility] Cardiology [address] [facility] [address] [place] [address] PAD (peripheral artery disease) (CMS/HCC) (HCC); Claudication (CMS/HCC) (HCC); MONTEZ (dyspnea on exertion) Social History Tobacco Use Types Packs/Day Years [...] CDT 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 Sexual Orientation Not on file documented as of this encounter Plan of Treatment Not on file documented as of this encounter Procedures Procedure Name Priority Date/Time Associated Diagnosis Comments NM MPI SPECT (REST AND/OR STRESS) MULTIPLE STUDIES Schedule Routine, Read Routine (OP Routine) 04/08/2022 10:35 AM CDT PAD (peripheral artery disease) (CMS/HCC) (HCC) Claudication (CMS/HCC) (HCC) MONTEZ (dyspnea on exertion) documented in this encounter Results * NM MPI SPECT (Rest and/or Stress) Multiple Studies (04/08/2022 10:35 AM CDT) Anatomical Region Laterality Modality Body N/A Nuclear Medicine 04/08/2022 8:12 AM CDT Narrative 04/08/2022 2:05 PM CDT [facility] Cardiology [address] [facility] [address] [place] [id number] [address] [facility] [address], [place] [address] P:[phone] P:[phone] MPI Imaging Report Patient Name: TOBY HILL J : 1950 Study Date: 04/08/2022 8:12:07 AM Gender: M Tech: PIERRE PEREZMT Location: [facility] Ref.Provider: JOSIAH BACA Height(Cm): 172.7 BSA: Weight(Kg): 91.4 BMI: 30.65Order Provider: JOSIAH BACA - Physician: Referring Physician: Dr. Espinosa. HCG Physician: Josiah Baca M.D., F.A.C.C. Interpreting Physician: Odell Mcgovern M.D. Stress Supervision: Odell Mcgovern M.D. Procedures: Myocardial perfusion imaging with Tc99M Sestamibi SPECT at rest and stress post regadenoson (Lexiscan) infusion. Indications: Hypertension, Pre-Op Clearance. Claudication, Family Hx CAD, High Cholesterol, Former Smoker, and MONTEZ. Findings: Procedural Findings: One day rest/stress was used. Tc99m Sestamibi injected IV at rest was 12.8 millicuries. 37.6 millicuries of Tc99M Sestamibi injected IV during Lexiscan stress. Lexiscan 0.4mg administered IV over 10 seconds. Patient had no symptoms during stress test. Baseline heart rate was 71 BPM. Maximum Heart Rate Achieved was: 97 BPM. Baseline blood pressure was 162/108 mmHg. Post Stress Blood Pressure was 160/98 mmHg. Termination: Protocol complete. Resting ECG: Sinus rhythm first degree AVB. Post ECG: No diagnostic ST changes. Arrhythmia: No arrhythmias seen. Perfusion Findings: Abnormal perfusion imaging - see below. Technical quality of study is excellent. Prone imaging was not performed. Left ventricle cavity size at rest is normal. Left ventricle cavity size with stress is unchanged. A TID of 0.75 was automatically calculated. defect 1: Size is small. Severity is moderate. Location of defect is in the basal inferoseptal segment and basal inferior segment. Reversibility is partial. Type of defect is infarction with alethea-infarct or superimposed ischemia. defect 2: Size is small. Severity is mild. Location of defect is in the mid inferior segment. Reversibility is not present, defect is fixed. Type of defect is infarction. LV Function: Left ventricular ejection fraction is 41 %. There is mild to moderate LV dysfunction. PostStress LV Wall Motion: There is dyskinesis in the basal inferoseptal segment and basal inferior segment. Conclusions: No diagnostic ST changes. Left ventricular ejection fraction is 41 %. There is mild to moderate LV dysfunction. There is dyskinesis in the basal inferoseptal segment and basal inferior segment. Myocardial perfusion imaging is abnormal fixed mid inferior defect and basal inferior and basal inferoseptal alethea-infarct ischemia. Recommend follow up with surgical scrub technician. Electronically Signed By: Odell Mcgovern MD 2022-04-08 14:05:12 CDT Electronically Signed By: Odell Mcgovern MD 2022-04-08 14:05:12 CDT CC: CC: Procedure Note Tigre Mcgovern MD - 04/08/2022 [facility] Cardiology [address], [place] [address] [address], [place] [address] P:[phone] P:[phone] MPI Imaging Report Patient Name: TOBY HILL JPatient ID: [id number] : [id number] Date: 04/08/2022 8:12:07 AM Gender: MAccession #: [id number] [facility] Ref.Provider: JOSIAH BACAHeight(Cm): 172.7 BSA: Weight(Kg): 91.4 BMI: 30.65Order Provider: JOSIAH BACA - Physician: Referring Physician: Dr. Espinosa. HCG Physician: Josiah Baca M.D.,F.A.C.C. Interpreting Physician: Odell Mcgovern M.D. Stress Supervision: Michi Mcgovern M.D. Procedures: Myocardial perfusion imaging with Tc99M Sestamibi SPECT at rest and stresspost regadenoson (Lexiscan) infusion. Indications: Hypertension, Pre-Op Clearance. Claudication, Family Hx CAD, HighCholesterol, Former Smoker, and MONTEZ. Findings: Procedural Findings: One day rest/stress was used. Tc99m Sestamibi injected IV at rest was 12.8millicuries. 37.6 millicuries of Tc99M Sestamibi injected IV during Lexiscan stress.Lexiscan 0.4mg administered IV over 10 seconds. Patient had no symptoms during stresstest. Baseline heart rate was 71 BPM. Maximum Heart Rate Achieved was: 97 BPM. Baselineblood pressure was 162/108 mmHg. Post Stress Blood Pressure was 160/98 mmHg. Termination: Protocol complete. Resting ECG: Sinus rhythm first degree AVB. Post ECG: No diagnostic ST changes. Arrhythmia: No arrhythmias seen. Perfusion Findings: Abnormal perfusion imaging - see below. Technical quality of study isexcellent. Prone imaging was not performed. Left ventricle cavity size at rest is normal.Left ventricle cavity size with stress is unchanged. A TID of 0.75 was automaticallycalculated. defect 1: Size is small. Severity is moderate. Location of defect is in the basalinferoseptal segment and basal inferior segment. Reversibility is partial. Type ofdefect is infarction with alethea-infarct or superimposed ischemia. defect 2: Size is small. Severity is mild. Location of defect is in the mid inferiorsegment. Reversibility is not present, defect is fixed. Type of defect isinfarction. LV Function: Left ventricular ejection fraction is 41 %. There is mild to moderate LVdysfunction. PostStress LV Wall Motion: There is dyskinesis in the basal inferoseptal segment and basal inferiorsegment. Conclusions: No diagnostic ST changes. Left ventricular ejection fraction is 41 %. There is mild to moderate LVdysfunction. There is dyskinesis in the basal inferoseptal segment and basal inferiorsegment. Myocardial perfusion imaging is abnormal fixed mid inferior defect andbasal inferior and basal inferoseptal alethea-infarct ischemia. Recommend follow up with surgical scrub technician. Electronically Signed By: Odell Mcgovern MD 2022-04-08 14:05:12 CDT Electronically Signed By: Odell Mcgovern MD 2022-04-08 14:05:12 CDT CC: CC: Josiah Baca MD IM NM PROCEDURES Final Result documented in this encounter Visit Diagnoses Diagnosis PAD (peripheral artery disease) (HCC) Unspecified peripheral vascular disease Claudication (HCC) Unspecified peripheral vascular disease MONTEZ (dyspnea on exertion) Other dyspnea and respiratory abnormality documented in this encounter Administered Medications Inactive Administered Medications - up to 3 most recent administrations Medication Order MAR Action Action Date Dose Rate Site regadenoson (LEXISCAN) 0.4 mg/5 mL injection 0.4 mg 0.4 mg, intravenous, Once, On Chiara 04/08/22 at 1115, For 1 dose, Administer IV push over 10 seconds., Indications: Myocardial Perfusion Imaging AdjunctIndications:Myocard ial Perfusion Imaging Adjunct Given 04/08/2022 10:41 AM CDT 0.4 mg tc-99m sestamibi unit dose injection 12.8 millicurie 12.8 millicurie, intravenous, Once in imaging, radiopharmaceutical, Starting on Chiara 04/08/22 at 0944, For 1 dose, Indications: Diagnostic RadiographyIndications:Michelle gnostic Radiography Given 04/08/2022 9:44 AM CDT 12.8 millicuries tc-99m sestamibi unit dose injection 37.6 millicurie 37.6 millicurie, intravenous, Once in imaging, radiopharmaceutical, Starting on Chiara 04/08/22 at 1035, For 1 dose, Indications: Diagnostic RadiographyIndications:Michelle gnostic Radiography Given 04/08/2022 10:42 AM CDT 37.6 millicuries documented in this encounter Care Teams Dumpster Operator Relationship Specialty Start Date End Date Ranulfo Romo DO PCP - General Family Medicine 04/08/22 Daniela Hilario NP Nurse Practitioner Nurse Practitioner 03/26/22 documented as of this encounter
--- OUTSIDE RECORDS SUMMARY | 2024-09-12 15:40 | XMS_ITS | Encounter Summary ---
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 Sexual Orientation Not on file documented as [...] as needed amLODIPine (NORVASC) 5 mg tablet TAKE 1 TABLET BY MOUTH EVERY MORNING 30 tablet 03/01/2023 4 aspirin 81 mg enteric coated tablet Take 1 tablet (81 mg total) by mouth daily 30 tablet 05/04/2023 4 atorvastatin (LIPITOR) 80 mg tablet Take 1 tablet (80 mg total) by mouth daily 30 tablet 03/17/2022 3 cephalexin (KEFLEX) 500 mg capsule TAKE 1 CAPSULE BY MOUTH EVERY 8 HOURS 01/07/2022 4 cetirizine 10 mg capsule Take by mouth 4 cilostazoL (PLETAL) 50 mg tabletIndications :Intermittent Claudication Take 1 tablet (50 mg total) by mouth 2 (two) times a day 60 tablet 11 05/04/2023 4 cloNIDine (CATAPRES) 0.1 mg tablet Take 0.1 mg by mouth daily 4 fluticasone propion-salmetero L (ADVAIR DISKUS) 500-50 mcg/dose diskus inhaler Inhale 1 puff 2 (two) times a day 10/06/2021 4 melatonin 5 mg capsule Take by mouth 4 multivitamin capsule Take 1 capsule by mouth daily [address] (PROTONIX) 40 mg EC tablet TAKE 1 TABLET BY MOUTH EVERY DAY 90 tablet 3 11/10/2022 4 rivaroxaban (XARELTO) 2.5 mg tablet Take 1 tablet (2.5 mg total) by mouth 2 (two) times a day 60 tablet 11 03/03/2022 3 Spiriva Respimat 2.5 mcg/actuation inhaler INHALE 2 PUFFS BY MOUTH ONCE DAILY 04/21/2021 5 documented as of this encounter Discharge Disposition Disposition Code Departure Means Destination Discharge to home or self care documented in this encounter Plan of Treatment Not on file documented as of this encounter Visit Diagnoses Not on filedocumented in this encounter Care Teams Plant Protection Superintendent Relationship Specialty Start Date End Date Ranulfo Romo DO PCP - General Family Medicine 04/08/22 Daniela Hilario NP Nurse Practitioner Nurse Practitioner 03/26/22 documented as of this encounter
--- OUTSIDE RECORDS SUMMARY | 2024-09-12 15:40 | XMS_ITS | Encounter Summary ---
Author Organization [facility] Address [address] [facility] [address] [place] [address] Care Team Providers Care Tile Sprayer Name Role Phone Daniela Hilario VACUUM EXTRACTOR OPERATOR Unavailable [phone] Rnaulfo Romo DO Primary Care Provider [phone] Encounter Details Date Type Department Care Team (Late st Contact Info) Description 03/22/2023 Telephone [facility] Cardiology [address] [address] Josiah Lay MD [address] [place] [address] Social History Tobacco Use Types Packs/Day [...] CDT 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 He is checked in and report uploadedto his chart documented in this encounter Plan of Treatment Not on file documented as of this encounter Visit Diagnoses Not on filedocumented in this encounter Care Teams Tile Sprayer Relationship Specialty Start Date End Date Ranulfo Romo DO PCP - General Family Medicine 04/08/22 Daniela Hilario NP Nurse Practitioner Nurse Practitioner 03/26/22 documented as of this encounter
--- OUTSIDE RECORDS SUMMARY | 2024-09-12 15:40 | XMS_ITS | Encounter Summary ---
Author Organization [facility] Address [address] [facility] [address] [place] [address] Care Team Providers Care National Secretary Name Role Phone Daniela Hilario ASSISTANT ELEMENTARY TEACHER Unavailable [phone] Ranulfo Romo DO Primary Care Provider Reason for Visit * Cardiology (Routine) - Closed Specialty Diagnoses / Procedures Referred By Jovany carver Referred To Contact Diagnoses History of complete AV block Pacemaker Procedures DEVICE CHECK - REMOTE Josiah Lay MD [address] [place] [address] Phone: tel: fax: [facility] Referral ID Status Reason Start Date Expiration Date Visits Re quested Visits Authorized [id number] Closed 06/04/2021 07/04/2022 1 1 Encounter Details Date Type Department Care Team (Latest Contact Info) Description 05/26/2022 8:30 AM CDT Ancillary Procedure [facility] Cardiology [address] [place] [id number] History of complete AV block; Pacemaker Social [...] CDT Gender Identity Male 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 Dx; Second Degree AVB, Symptomatic Bradycardia. DOI 05/02/2019-Dr Zenia Good ([place]). [employer] remote. Routine Pacemaker remote. Normal device function. Battery function-2.98V, 7.0 years remaining battery life to HERMELINDO. Appropriate lead measurements. Presenting rhythm-ASVP. AP-19.7%, PRODUCTION PLANNING SUPERVISOR-98.6%. No Atrial high rate episodes noted. No Ventricular high rate episodes noted. ?? Medications; Xarelto, Plavix, Coreg. See scanned report. Office pacemaker f/u 09/13/2022. us Josiah Lay MD [facility] PROCEDURES F inal Result documented in this encounter Visit Diagnoses Diagnosis History of complete AV block Pacemaker Cardiac pacemaker in situ documented in this encounter Care Teams National Secretary Relationship Specialty Start Date End Date Ranulfo Romo DO PCP - General Family Medicine 04/08/22 Daniela Hilario NP Nurse Practitioner Nurse Practitioner 03/26/22 documented as of this encounter
--- OUTSIDE RECORDS SUMMARY | 2024-09-12 15:40 | XMS_ITS | Encounter Summary ---
Author Organization [facility] Address [address] [place] [address] Care Team Providers Care Machine Veneer Repairer Name Role Phone Daniela Hilario CUSTOM FEED MILL OPERATOR HELPER Unavailable [phone] Ranulfo Romo DO Primary Care Provider [phone] Reason for Visit * Cardiology (Routine) - Closed Specialty Diagnoses / Procedures Referred By Jovany carver Referred To Contact Diagnoses History of complete AV block Procedures DEVICE CHECK - IN OFFICE Josiah Lay MD [address] [address] Phone: tel: fax: [facility] Referral ID Status Reason Start Date Expiration Date Visits Re quested Visits Authorized [id number] Closed 05/02/2023 06/06/2024 2 2 Encounter Details Date Type Department Care Team (Latest Contact Info) Description 05/04/2023 1:30 PM CDT Ancillary Procedure [facility] Cardiology [address] [place] [address] History of complete AV block; [...] CDT Gender Identity Male 08/12/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 Sexual Orientation Not on file documented as of this encounter Plan of Treatment Pending Results Name Type Priority Associated Diagnoses Date /Time DEVICE CHECK - IN OFFICE Cardiac Services Routine History of complete AV block 05/08/2023 5:36 PM CDT documented as of this encounter Procedures Procedure Name Priority Date/Time Associated Diagnosis Comments DEVICE CHECK - IN OFFICE Routine 05/04/2023 1:22 PM CDT History of complete AV block Pacemaker documented in this encounter Results * DEVICE CHECK - IN OFFICE (05/04/2023 1:22 PM CDT) Anatomical Region Laterality Modality Other Narrative 05/05/2023 3:12 PM CDT Medtronic [place] Dual Pacemaker. Dx; Second Degree AVB, Symptomatic Bradycardia. DOI 05/02/2019-Dr Zenia Good ([place]). [facility] remote. Office pacemaker evaluation demonstrated appropriate device function. Battery function-2.96V, 4.2 years remaining battery life to HERMELINDO. Presenting rhythm-ASVP. Underlying razsap-TD-AZ with First Degree AV Block. MA interval 240-280 ms. AP-16%, [place] PULP-99.7%. No mode switch episodes recorded. 1 Ventricular high rate episode noted on 12/08/21, iegm suggestive of NSVT 8 beat duration @ 226 bpm. Medications; Xarelto, Plavix, Coreg. Atrial amplitude decreased to 1.5V. Ventricular amplitude decreased to 3.0V. See scanned report. ?? Office pacemaker f/u and ROV with Dr Lay scheduled 01/10/2023. [facility] remote f/u 08/03/2023. Samia José, RN us Josiah Lay MD [facility] CARDIAC SERVICES PROCEDURES F inal Result documented in this encounter Visit Diagnoses Diagnosis History of complete AV block Pacemaker Cardiac pacemaker in situ documented in this encounter Care Teams Machine Veneer Repairer Relationship Specialty Start Date End Date Ranulfo Romo DO PCP - General Family Medicine 04/08/22 Daniela Hilario NP Nurse Practitioner Nurse Practitioner 03/26/22 documented as of this encounter
--- OUTSIDE RECORDS SUMMARY | 2024-09-12 15:40 | XMS_ITS | Encounter Summary ---
Author Organization [facility] Address [address] [place] [address] Care Team Providers Care Enlisted Advisor Name Role Phone Daniela Hilario ACCOUNT MANAGER EDUCATION Unavailable Ranulfo Romo DO Primary Care Provider [phone] Reason for Visit * Reason Comments Peripheral Artery Disease Hypertension 3 month follow up. Encounter Details Date Type Department Care Team (Late st Contact Info) Description 09/01/2022 1:00 PM TRUCKER Office Visit [facility] Cardiology [address] [place] [address] Josiah Lay MD [address] [id number] History of complete AV block (Primary Dx); Pacemaker; PAD (peripheral artery disease) (CMS/HCC) (HCC); Claudication (CMS/HCC) ([facility]); Essential hypertension Social History Tobacco Use Types Packs/Day Years [...] CDT Gender Identity Male 08/12/2022 2:14 PM TRUCKER Sexual Orientation Not on file documented as of this encounter Last Filed Vital Signs Vital Sign Reading Time Taken Comments Blood Pressure 100/54 09/01/2022 1:17 PM TRUCKER Pulse 89 09/01/2022 1:17 PM TRUCKER Temperature - - Respiratory Rate - - Oxygen Saturation 93% 09/01/2022 1:17 PM TRUCKER Inhaled Oxygen Concentration - - Weight 89.8 kg (198 lb) 09/01/2022 1:17 PM TRUCKER Height 172.7 cm (5' 8) 09/01/2022 1:17 PM TRUCKER Body Mass Index 30.11 09/01/2022 1:17 PM TRUCKER documented in this encounter Progress Notes * Josiah Lay MD - 09/01/2022 1:00 PM CST [facility] CARDIOLOGY 09/01/2022 CHIEF COMPLAINT Chief Complaint Patient presents with ??? Peripheral Artery Disease ??? Hypertension 3 month follow up. HPI Freddy Hill is a 71 y.o. male with hypertension, history of AV block status post Medtronic pacemaker placement in June 2020, peripheral artery disease involving left lower extremity and carotid arteries, status post left lower extremity intervention; status post right carotid enterectomy; COPD, history of COVID-19 infection. 05/13/2021 initial evaluation-patient is here to reestablish cardiovascular care. Patient states that he moved to local area in October 2020 from [place], [place]. Patient has extensive cardiovascular history. His [...] placement. He denies any history of clinical [place], angina. At present, patient has dyspnea on [...] routine follow-up visit. He was hospitalized at [facility] in June 2021 with worsening shortness [...] medical regimen. Patient is on home oxygen. 12/30/[id number]-hczith-sk visit today, patient reports worsening discomfort in [...] with current medical regimen. Denies anybleeding complications. MEDICAL HISTORY he has a past medical history of Anemia, Arthritis, Asthma, AV block, Carotid stenosis, CKD (chronic kidney disease) stage 3, GFR 30-59 ml/min ([facility]), Claudication ([facility]) ([facility]), COPD (chronic obstructive pulmonary disease) ([facility]) ([facility]), Cough, COVID-19 (05/2020), Cramps of lower extremity, Easy bruisability, Empyema ([facility]) ([facility]) (05/2020), Fatigue, GERD (gastroesophageal reflux disease), Hyperkalemia, Hypertension, Irregular heart beat, PAD (peripheral artery disease) ([facility]) ([facility]), Pneumonia (2018), [...] INHALATION ROUTE NEEDED FOR 30 DAYS. ??? amLODIPine (NORVASC) 10 mg tablet Take 10 mg by mouth daily ??? atorvastatin (LIPITOR) 80 mg tablet Take 1 tablet (80 mg total) by mouth daily 30 tablet 11 ??? carvediloL (COREG) 25 mg tablet Take 1.5 tablets by mouth 2 (two) times a day ??? cetirizine 10 mg capsule Take by mouth ??? cloNIDine (CATAPRES) 0.1 mg tablet Take 0.1 mg by mouth daily ??? clopidogreL (PLAVIX) 75 mg tablet Take 75 mg by mouth daily ??? doxepin (SINEquan) 25 mg capsule Take 25 mg by mouth nightly ??? dupilumab (DUPIXENT) syringe Inject 300 mg under the skin every 14 (fourteen) days ??? fluticasone propion-salmeteroL (ADVAIR DISKUS) 500-50 mcg/dose diskus inhaler Inhale 1 puff 2 (two) times a day ??? furosemide (LASIX) 40 mg tablet Take 40 mg by mouth daily. Indications: per md advisement ??? gabapentin (NEURONTIN) 300 mg capsule Take 300 mg by mouth daily as needed ??? melatonin 5 mg capsule Take by mouth ??? multivitamin capsule Take 1 capsule by mouth daily ??? oxygen Administer 3 L/min into each nostril as needed (hypoxia). Indications: trouble breathing ??? pantoprazole DR (PROTONIX) 40 mg EC tablet Take 1 tablet (40 mg total) by mouth daily 30 ??? potassium chloride ER (KLOR-CON) 10 mEq CR tablet Take 10 mEq by mouth daily. Indications: low amount of potassium in the blood ??? rivaroxaban (XARELTO) 2.5 mg tablet Take 1 tablet (2.5 mg total) by mouth 2 (two) times a day 60 tablet 11 ??? Spiriva Respimat 2.5 mcg/actuation inhaler INHALE 2 PUFFS BY MOUTH ONCE DAILY ??? tamsulosin (FLOMAX) 0.4 mg extended release capsule Take 2 capsules (0.8 mg total) by mouth daily with dinner ??? traMADoL (ULTRAM) 50 mg tablet Take 50 mg by mouth every 6 (six) hours as needed ??? triamcinolone (KENALOG) 0.1 % ointment Apply topically ??? cephalexin (KEFLEX) 500 mg capsule TAKE 1 CAPSULE BY MOUTH EVERY 8 HOURS ??? finasteride (PROSCAR) 5 mg tablet Take 5 mg by mouth daily No current facility-administered medications for this visit. [...] for - hot flashes, polydipsia/polyuria Musculoskeletal ROS: Denies claudication at present Neurological ROS: negative for - gait disturbance, [...] potassium 4.6, creatinine 1.91, GFR 35;. 03/24/2021 [facility] EKG-sinus rhythm, left bundle-branch block. 05/13/2021 Carotid duplex-less than 50% stenosis bilateral ICA. 05/27/2021 [facility] SULEMA/Doppler-right SULEMA 0.66, right TBI 0.35. Arterial waveforms are biphasic with brisk systolic upstroke throughout. Left SULEMA 0.81, left SULEMA 0.64. Arterial waveforms are biphasic with brisk systolic upstroke throughout. 05/27/2021 [facility] Venous duplex-no DVT. 07/17/2021 [facility] Echo-Normal left ventricular size. Definity contrast agent used to visually enhance endocardial wall motion and contractility. Normal global left ventricular systolic function. Impaired diastolic relaxation Grade I. Ejection fraction is measured at 66 %. Mild enlargement of left atrium. Normal appe arance of the mitral valve. Peak gradient of 10.0 mmHg. Mean gradient of 5.0 mmHg. Valve area of 1.79 cm2. Aortic cusps appear mildly sclerotic. 11/24/2021- Dr. Good Lipids-total cholesterol 161, HDL 65, triglycerides [...] and basal inferoseptal alethea-infarct ischemia. 04/08/2022-Dr. Mcgovern PHYSICAL EXAM Vitals BP 100/54 (BP Location: Right arm, Patient Position: Sitting) Pulse 89 Ht 172.7 cm (5' 8) Wt 89.8 kg (198 lb) SpO2 93% BMI 30.11 kg/m?? General appearance - alert, no distress, [...] Diagnoses and all orders for this visit: History of complete AV block (Primary) Pacemaker PAD (peripheral artery disease) ([facility]/HCC) ([facility]) Claudication (CMS/HCC) ([facility]) Essential hypertension PLAN/RECOMMENDATIONS 71 y.o. male with hypertension, history of AV block status post Medtronic pacemaker placement in June 2020, peripheral artery disease involving left lower extremity and carotid arteries, status post left lower extremity intervention; status post right carotid enterectomy; COPD/chronic respiratory failure on home oxygen at night, history of COVID-19 infection. - patient denies significant claudication at present. Previous angiogram showed aortoiliac and femoral disease. Vascular surgery was consulted, and patient was anticipated to undergo possible surgical revascularization. At this time, patient would like to pursue medical treatment and daily walking.He will let us know if he has any worsening symptoms of claudication. - continue medical treatment with single antiplatelet-clopidogrel, and anticoagulation with low-dose rivaroxaban 2.5 mg p.o. b.i.d.. -current LDL 83, target LDL is less than 70. Continue high-dose atorvastatin. Repeat lipid panel onfollow-up visit. -patient updated about recent MPI which showed infarct without ischemia. He does not have angina atpresent. Continue medical treatment including antiplatelet and statin. [...] diet counseling was done. -periodic pacemaker interrogations. -Counseling was done for heart healthy/low-salt diet, aerobic activity as tolerated. -follow-up in about 8-9 months or sooner if needed. Josiah Lay MD 09/01/22 Voice recognition software was used to complete this document, therefore, vocational technical education director variances may occur. KER documented in this encounter Plan of Treatment Not on file documented as of this encounter Visit Diagnoses Diagnosis History of complete AV block- Primary Pacemaker Cardiac pacemaker in situ PAD (peripheral artery disease) (HCC) Unspecified peripheral vascular disease Claudication (HCC) Unspecified peripheral vascular disease Essential hypertension Unspecified essential hypertension documented in this encounter Historical Medications * This list may reflect changes made after this encounter. triamcinolone (KENALOG) 0.1 % ointment Apply 1 Application topically as needed cloNIDine (CATAPRES) 0.1 mg tablet Take 0.1 mg by mouth daily 4 amLODIPine (NORVASC) 10 mg tablet Take 10 mg by mouth daily 3 added in this encounter Care Teams Enlisted Advisor Relationship Specialty Start Date End Date Ranulfo Romo DO PCP - General Family Medicine 04/08/22 Daniela Hilario NP Nurse Practitioner Nurse Practitioner 03/26/22 documented as of this encounter
--- OUTSIDE RECORDS SUMMARY | 2024-09-12 15:41 | XMS_ITS | Encounter Summary ---
Author Organization [facility] Address [address] [facility] [address] [place] [address] Phone Care Team Providers Care Tar Pot Worker Name Role Phone Ross Espinosa MD Primary Care Provider [phone] Reason for Visit * Diagnostic Imaging (Routine) - Closed Specialty Diagnoses / Procedures Referred By Jovany carver Referred To Contact Diagnoses Atherosclerosis of [place] arteries of extremities with intermittent claudication, bilateral legs (HCC) Procedures SULEMA Aggie Villagran NP [address] [facility] [address] [place] [address] Phone: tel: fax: [facility] (All Locations) Referral ID Status Reason Start Date Expiration Date Visits Re quested Visits Authorized [id number] Closed 03/03/2022 04/02/2023 1 1 Encounter Details Date Type Department Care Team (Latest Contact Info) Description 03/19/2022 3:15 PM CDT Ancillary Procedure [facility] [address] [facility] Medical Office Building [address], [place] [address] Atherosclerosis of [place] arteries of extremities with intermittent claudication, bilateral legs (HCC); Presence of other vascular implants and grafts Social History Tobacco Use Types Packs/Day Years Used Date Smoking Tobacco: Former Cigarettes Q uit: 08/22/2009 Smokeless Tobacco: Never AUDIT-C Answer Date Recorded Q1: How often do you have a drink containing alc ohol? Never 03/03/2022 Average Number of Drinks Not on file 022 Q3: How often do you have si x or more drinks on one occasion? Never 03/03/2022 Sex and Gender Information Value Date Recorded Sex Assigned at Not on file Legal Sex Male 1:43 PM CDT Gender Identity Male 08/12/2022 2:14 PM [employer] Sexual Orientation Not on file documented as of this encounter Plan of Treatment Not on file documented as of this encounter Procedures Procedure Name Priority Date/Time Associated Diagnosis Comments VL US ARTERIAL DUPLEX LOWER EXTREMITY BILATERAL Schedule Routine, Read Routine (OP Routine) 03/19/2022 3:43 PM CDT Atherosclerosis of [place] arteries of extremities with intermittent claudication, bilateral legs (HCC) Presence of other vascular implants and grafts US SULEMA Schedule Routine, Read Routine (OP Routine) 03/19/2022 3:43 PM CDT Atherosclerosis of [place] arteries of extremities with intermittent claudication, bilateral legs (HCC) documented in this encounter Results * US Arterial Duplex Lower Extremity Bilateral (03/19/2022 3:43 PM CDT) Anatomical Region Laterality Modality Vascular Bilateral Ultrasound 03/19/2022 2:49 PM CDT Narrative 03/20/2022 11:52 AM CDT [facility] - Department of Vascular Surgery, Vascular Laboratory [address] [place] [address] [place] Lower Extremity Arterial Duplex Report Patient Name: TOBY HILL : 1950 Study Date: 03/19/2022 2:49:09 PM Gender: M Tech: TT Location: [facility] Ref.Provider: AGGIE VILLAGRAN Quality: Adequate Order Provider: AGGIE VILLAGRAN Procedures: Arterial Report: Bilateral Lower Extremity Arterial Duplex Exam. Indications: Atherosclerosis of [place] Arteries of Extremities with Intermittent Cladication, Bilateral Leg. Measurements: Right Lower ? Left Lower ? Measurement ? Value ?Units ?Measurement ? Value ?Units ? Rt DRIVER MERCHANDISER Dst PSV ?180 ?cm/s ? Lt DRIVER MERCHANDISER Dst PSV ?273 ?cm/s ? Rt Profunda Prx PSV ? 58 ? cm/s ? Lt Profunda Prx PSV ? 86 ? cm/s ? Rt Superficial Femoral Prx PSV ?68 ? cm/s ? Lt Superficial Femoral Prx PSV ?101 ?cm/s ? Rt Superficial Femoral Mid PSV ?97 ? cm/s ? Lt Superficial Femoral Mid PSV ?64 ? cm/s ? Rt Superficial Femoral Dst PSV ?115 ?cm/s ? Lt Superficial Femoral Dst PSV ?90 ? cm/s ? Rt Popliteal Artery ? 66 ? cm/s ? Lt Popliteal Artery ? 116 ?cm/s ? Rt Post Tibial Mid PSV ?34 ? cm/s ? Lt Post Tibial Mid PSV ?69 ? cm/s ? Rt Ant Tibial Mid PSV ? 47 ? cm/s ? Lt Ant Tibial Mid PSV ? 64 ? cm/s ? Rt Peroneal Mid PSV ? 39 ? cm/s ? Lt Peroneal Mid PSV ? 50 ? cm/s ? Measurement ? Value ?Units ?Measurement ? Value ?Units ? Right Lower ? Left Lower ? - Findings: Performing Box Spring Maker: Garret Talamantes RVT. Right Common Femoral: The right common femoral waveform is monophasic. Right Profunda: The right profunda waveform is monophasic. Right Proximal Superficial Femoral Artery: The right proximal femoral artery waveform is monophasic. Right Mid Superficial Femoral Artery: The right mid femoral artery waveform is monophasic. Right Distal Superficial Femoral Artery: The right distal femoral artery waveform is monophasic. Right Popliteal: The right popliteal waveform is monophasic. Right Posterior Tibial: The right posterior tibial waveform is monophasic. Right Anterior Tibial: The right anterior tibial waveform is monophasic. Right Peroneal: The right peroneal artery waveform is monophasic. Left Common Femoral: The left common femoral waveform is multiphasic. Left Profunda: The left profunda waveform is multiphasic. Left Proximal Superficial Femoral Artery: The left proximal femoral artery waveform is multiphasic. Left Mid Superficial Femoral Artery: The left mid femoral artery waveform is multiphasic. Left Distal Superficial Femoral Artery: The left distal femoral artery waveform is multiphasic. Left Popliteal: The left popliteal waveform is monophasic. Left Posterior Tibial: The left posterior tibial waveform is monophasic. Left Anterior Tibial: The left anterior tibial waveform is monophasic. Left Peroneal: The left peroneal artery waveform is monophasic. Conclusions: 1. Duplex imaging of the bilateral lower extremity [place] arteries reveals patent vessels with no flow limiting lesions identified. Flow velocities as measured above. See Ankle Brachial Index report. History: History of prior intervention. Previous Studies: No previous studies for comparison. Disclaimer: The signing physician has reviewed all images pertaining to this test. These images and this report will be retained in the patient chart by the Vascular Laboratory for the legally required time period. This chart constitutes the legal record of any testing performed. Electronically Signed By: Sourav Canada MD [facility] 2022-03-20 11:52:50 CDT CC: CC: Procedure Note Sourav Canada MD - 03/20/2022 [facility] - Department of Vascular Surgery,Vascular Laboratory [address] [place] [address] [place] Lower Extremity Arterial Duplex Report Patient Name: TOBY HILLPatient ID: [id number] : [id number] Date: 03/19/2022 2:49:09 PM Gender: MAccession #: [id number] Tech: TTLocation: [facility] Ref.Provider: AGGIE VILLAGRANQuality: Adequate Order Provider: AGGIE VILLAGRAN Procedures: Arterial Report: Bilateral Lower Extremity Arterial Duplex Exam. Indications: Atherosclerosis of [place] Arteries of Extremities with IntermittentCladication, Bilateral Leg. Measurements: Right Lower Left Lower Measurement Value Units MeasurementValue Units Rt DRIVER MERCHANDISER Dst PSV 180 cm/s Lt DRIVER MERCHANDISER Dst [id number] cm/s Rt Profunda Prx PSV 58 cm/s Lt Profunda Prx PSV86 cm/s Rt Superficial Femoral Prx PSV 68 cm/s Lt Superficial FemoralPrx PSV 101 cm/s Rt Superficial Femoral Mid PSV 97 cm/s Lt Superficial FemoralMid PSV 64 cm/s Rt Superficial Femoral Dst PSV 115 cm/s Lt Superficial FemoralDst PSV 90 cm/s Rt Popliteal Artery 66 cm/s Lt Popliteal Plzbka830 cm/s Rt Post Tibial Mid PSV 34 cm/s Lt Post Tibial Mid PSV69 cm/s Rt Ant Tibial Mid PSV 47 cm/s Lt Ant Tibial Mid PSV64 cm/s Rt Peroneal Mid PSV 39 cm/s Lt Peroneal Mid PSV50 cm/s Measurement Value Units MeasurementValue Units Right Lower Left Lower - Findings: Performing Box Spring Maker: Garret Talamantes RVT. Right Common Femoral: The right common femoral waveform is monophasic. Right Profunda: The right profunda waveform is monophasic. Right Proximal Superficial Femoral Artery: The right proximal femoral artery waveform is monophasic. Right Mid Superficial Femoral Artery: The right mid femoral artery waveform is monophasic. Right Distal Superficial Femoral Artery: The right distal femoral artery waveform is monophasic. Right Popliteal: The right popliteal waveform is monophasic. Right Posterior Tibial: The right posterior tibial waveform is monophasic. Right Anterior Tibial: The right anterior tibial waveform is monophasic. Right Peroneal: The right peroneal artery waveform is monophasic. Left Common Femoral: The left common femoral waveform is multiphasic. Left Profunda: The left profunda waveform is multiphasic. Left Proximal Superficial Femoral Artery: The left proximal femoral artery waveform is multiphasic. Left Mid Superficial Femoral Artery: The left mid femoral artery waveform is multiphasic. Left Distal Superficial Femoral Artery: The left distal femoral artery waveform is multiphasic. Left Popliteal: The left popliteal waveform is monophasic. Left Posterior Tibial: The left posterior tibial waveform is monophasic. Left Anterior Tibial: The left anterior tibial waveform is monophasic. Left Peroneal: The left peroneal artery waveform is monophasic. Conclusions: 1. Duplex imaging of the bilateral lower extremity [place] arteries revealspatent vessels with no flow limiting lesions identified. Flow velocities as measuredabove. See Ankle Brachial Index report. History: History of prior intervention. Previous Studies: No previous studies for comparison. Disclaimer: The signing physician has reviewed all images pertaining to this test.These images and this report will be retained in the patient chart by the VascularLaboratory for the legally required time period. This chart constitutes the legal record ofany testing performed. Electronically Signed By: Sourav Canada MD [facility] 2022-03-20 11:52:50 CDT CC: CC: us Aggie Villagran NATURAL [employer] TECHNICIAN IMG US PROCEDURES Final Result * US SULEMA (03/19/2022 3:43 PM CDT) Anatomical Region Laterality Modality Vascular N/A Ultrasound 03/19/2022 2:09 PM CDT Narrative 03/20/2022 11:53 AM CDT [facility] - Department of Vascular Surgery, Vascular Laboratory [address] [place] [address] Lower Extremity Arterial Doppler Report Patient Name: TOBY HILL : 1950 Study Date: 03/19/2022 2:09:00 PM Gender: M Tech: Garret Talamantes [facility] Location: [facility] Ref.Provider: AGGIE VILLAGRAN Quality: Adequate Order Provider: AGGIE VILLAGRAN Procedures: Arterial Report: Ankle - Brachial Index Doppler exam. Indications: Atherosclerosis of [place] Arteries of Extremities with Intermittent Claudication, Bilateral Leg. Measurements: Right - ?Left - ? Measurement ?Value ?Units ?Measurement ?Value ?Units ? Rt Brachial Pressure ? 171 ?mmHg ? Lt Brachial Pressure ? 167 ?mmHg ? Rt CODING ADVISOR Pressure ?112 ?mmHg ? Lt CODING ADVISOR Pressure ?155 ?mmHg ? Rt DPA Pressure ?115 ?mmHg ? Lt DPA Pressure ?149 ?mmHg ? Rt 1st Digit Pressure ?102 ?mmHg ? Lt 1st Digit Pressure ?119 ?mmHg ? Rt PT SULEMA Resting ?0.65 ?Lt PT SULEMA Resting ?0.91 ? Rt AT SULEMA Resting ?0.67 ?Lt AT SULEMA Resting ?0.87 ? Rt Digit/Arm Index ? 0.6 ? Lt Digit/Arm Index ? 0.7 ? Measurement ?Value ?Units ?Measurement ?Value ?Units ? Right - ?Left - ? - Findings: Performing Box Spring Maker: Garret Talamantes RVT. Right Posterior Tibial Artery Analysis: The posterior tibial waveform is monophasic. Right Anterior Tibial Artery Analysis: The anterior tibial waveform is monophasic. Left Posterior Tibial Artery Analysis: The posterior tibial waveform is multiphasic. Left Anterior Tibial Artery Analysis: The anterior tibial waveform is multiphasic. Conclusions: 1. The above listed right Ankle/Brachial Index [...] limits (for reference, normal DANIEL is >0.6). History: History of prior intervention. Previous Studies: No previous studies for comparison. Disclaimer: The signing physician has reviewed all images pertaining to this test. These images and this report will be retained in the patient chart by the Vascular Laboratory for the legally required time period. This chart constitutes the legal record of any testing performed. Electronically Signed By: Sourav Canada MD [facility] 2022-03-20 11:53:06 CDT CC: CC: Procedure Note Sourav Canada MD - 03/20/2022 [facility] - Department of Vascular Surgery,Vascular Laboratory [address] [place] [address] Lower Extremity Arterial Doppler Report Patient Name: TOBY HILLPatient ID: [id number] : [id number] Date: 03/19/2022 2:09:00 PM Gender: MAccession #: [id number] Tech: Garret TalamantesTLocation: [facility] Ref.Provider: Tonia VILLAGRANality: Adequate Order Provider: AGGIE VILLAGRAN Procedures: Arterial Report: Ankle - Brachial Index Doppler exam. Indications: Atherosclerosis of [place] Arteries of Extremities with IntermittentClaudication, Bilateral Leg. Measurements: Right - Left - Measurement Value Units Measurement ValueUnits Rt Brachial Pressure 171 mmHg Lt Brachial Pressure 167mmHg Rt CODING ADVISOR Pressure 112 mmHg Lt CODING ADVISOR Pressure 155mmHg Rt DPA Pressure 115 mmHg Lt DPA Pressure 149mmHg Rt 1st Digit Pressure 102 mmHg Lt 1st Digit Pressure 119mmHg Rt PT SULEMA Resting 0.65 Lt PT SULEMA Resting 0.91 Rt AT SULEMA Resting 0.67 Lt AT SULEMA Resting 0.87 Rt Digit/Arm Index 0.6 Lt Digit/Arm Index 0.7 Measurement Value Units Measurement ValueUnits Right - Left - - Findings: Performing Box Spring Maker: Garret Talamantes RVT. Right Posterior Tibial Artery Analysis: The posterior tibial waveform is monophasic. Right Anterior Tibial Artery Analysis: The anterior tibial waveform is monophasic. Left Posterior Tibial Artery Analysis: The posterior tibial waveform is multiphasic. Left Anterior Tibial Artery Analysis: The anterior tibial waveform is multiphasic. Conclusions: 1. The above listed right Ankle/Brachial Index at rest is consistent withmoderate peripheral arterial disease - claudication (for reference, claudicationrange is 0.50 -0.89). 2. The above listed left Ankle/Brachial Index at rest is within normallimits (for reference, normal resting SULEMA is 0.90 - >1.00; SULEMA >1.00 due toincompressible arteries is not diagnostic). 3. Bilateral Digit/Arm Indices are within normal limits (for reference,normal DANIEL is >0.6). History: History of prior intervention. Previous Studies: No previous studies for comparison. Disclaimer: The signing physician has reviewed all images pertaining to this test.These images and this report will be retained in the patient chart by the VascularLaboratory for the legally required time period. This chart constitutes the legal record ofany testing performed. Electronically Signed By: Sourav Canada MD [facility] 2022-03-20 11:53:06 CDT CC: CC: us Aggie Villagran NAT[employer] TECHNICIAN IMG US PROCEDURES Final Result documented in this encounter Visit Diagnoses Diagnosis Atherosclerosis of [place] arteries of extremities with intermittent claudication, bilateral legs (HCC) Presence of other vascular implants and grafts documented in this encounter Care Teams Tar Pot Worker Relationship Specialty Start Date End Date Ross Espinosa MD [address] [place] [address] PCP - General 03/03/22 04/07/22 documented as of this encounter
--- OUTSIDE RECORDS SUMMARY | 2024-09-12 15:41 | XMS_ITS | Encounter Summary ---
Author Organization [facility] Address [address] [place] [address] Care Team Providers Care Conductor Orchestra Name Role Phone Ross Espinosa MD Primary Care Provider [phone] Reason for Referral * Diagnostic Imaging (Routine) - Closed Specialty Diagnoses / Procedures Referred By Contac t Referred To Contact Diagnoses PAD (peripheral artery disease) (HCC) Claudication ([facility]) MONTEZ (dyspnea on exertion) Procedures NM MPI SPECT (Rest and/or Stress) Multiple Studies Josiah Baca MD [address] [place] [address] Phone: tel: fax: [facility] Referral ID Status Reason Start Date Expiration Date Visits Re quested Visits Authorized [id number] Closed 03/17/2022 04/16/2023 1 1 Reason for Visit * Reason Comments Claudication Encounter Details Date Type Department Care Team (Latest Contact Info) Description 03/17/2022 11:45 AM CDT Office Visit [facility] Cardiology [address] [place] [address] Josiah Baca MD [address] [place] [address] Preop cardiovascular exam (Primary Dx); PAD (peripheral artery disease) (CMS/HCC) (HCC); Claudication (CMS/HCC) ([facility]); History of complete AV block; Pacemaker; Essential hypertension; Mild aortic stenosis; Chronic respiratory failure with hypoxia, on home O2 therapy (CMS/HCC) ([facility]); MONTEZ (dyspnea on exertion); Lipid screening Social History Tobacco Use Types [...] CDT Gender Identity Male 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 Sexual Orientation Not on file documented as of this encounter Last Filed Vital Signs Vital Sign Reading Time Taken Comments Blood Pressure 132/80 03/17/2022 11:44 AM CDT Pulse 106 03/17/2022 11:44 AM CDT Temperature - - Respiratory Rate - - Oxygen Saturation 95% 03/17/2022 11:44 AM CDT Inhaled Oxygen Concentration - - Weight 91.6 kg (202 lb) 03/17/2022 11:44 AM CDT Height 172.7 cm (5' 8) 03/17/2022 11:44 AM CDT Body Mass Index 30.71 03/17/2022 11:44 AM CDT documented in this encounter Ordered Prescriptions Prescription Sig Dispense Quantity Refills Last Filled Start Date End Date atorvastatin (LIPITOR) 80 mg tablet Take 1 tablet (80 mg total) by mouth daily 30 tablet 11 03/17/2022 08/03/2023 documented in this encounter Progress Notes * Josiah Baca MD - 03/17/2022 11:45 AM CDT [facility] CARDIOLOGY 03/17/2022 CHIEF COMPLAINT Chief Complaint Patient presents with ??? Claudication HPI Toby Hill is a 71 y.o. male with [...] to local area in October 2020 from [place], [place]. Patient has extensive cardiovascular history. His [...] placement. He denies any history of clinical NH, angina. At present, patient has dyspnea on [...] routine follow-up visit. He was hospitalized at [facility] in June 2021 with worsening [...] medical regimen. Patient is on home oxygen. 12/30/[id number] visit today, patient reports worsening discomfort in [...] current medical regimen, denies any bleeding complications. MEDICAL HISTORY he has a past medical history of Anemia, Arthritis, Asthma, AV block, Carotid stenosis, CKD (chronic kidney disease) stage 3, GFR 30-59 ml/min ([facility]), Claudication ([facility]) ([facility]), COPD (chronic obstructive pulmonary disease) ([facility]) ([facility]), COVID-19 (05/2020), Empyema ([facility]) ([facility]) (05/2020), GERD (gastroesophageal reflux disease), Hyperkalemia, Hypertension, PAD (peripheral artery disease) ([facility]) ([facility]), Pneumonia (2018), and Sleep apnea. He has no past medical history of [...] 10 mg capsule Take by mouth ??? clopidogreL (PLAVIX) 75 mg tablet Take [...] every 6 (six) hours as needed ??? atorvastatin (LIPITOR) 80 mg tablet Take 1 tablet (80 mg total) by mouth daily 30 tablet 11 No current facility-administered medications for this visit. [...] for - hot flashes, polydipsia/polyuria Musculoskeletal ROS: Positive for leg claudication, left worse than right, recent worsening of symptoms Neurological ROS: negative for - gait disturbance, [...] potassium 4.6, creatinine 1.91, GFR 35;. 03/24/2021 [facility] EKG-sinus rhythm, left bundle-branch block. 05/13/2021 Carotid duplex-less than 50% stenosis bilateral ICA. 05/27/2021 [facility] SULEMA/Doppler-right SULEMA 0.66, right TBI 0.35. Arterial waveforms are biphasic with brisk systolic upstroke throughout. Left SULEMA 0.81, left SULEMA 0.64. Arterial waveforms are biphasic with brisk systolic upstroke throughout. 05/27/2021 [facility] Venous duplex-no DVT. 07/17/2021 [facility] Echo-Normal left ventricular size. Definity [...] than 45, LDL 83, glucose 123. 03/17/2022 PHYSICAL EXAM Vitals BP 132/80 (BP Location: Right arm, Patient Position: Sitting) Pulse 106 Ht 172.7 cm (5' 8) Wt 91.6 kg (202 lb) SpO2 95% BMI 30.71 kg/m?? General appearance - alert, no distress, [...] Diagnoses and all orders for this visit: Preop cardiovascular exam (Primary) PAD (peripheral artery disease) (CMS/HCC) ([facility]) - NM MPI SPECT (Rest and/or Stress) Multiple Studies; Future Claudication ([facility]) ([facility]) - NM MPI SPECT (Rest and/or Stress) Multiple Studies; Future History of complete AV block Pacemaker Essential hypertension Mild aortic stenosis Chronic respiratory failure with hypoxia, on home O2 therapy ([facility]) ([facility]) MONTEZ (dyspnea on exertion) - NM MPI SPECT (Rest and/or Stress) Multiple Studies; Future Other orders - atorvastatin (LIPITOR) 80 mg tablet; Take 1 tablet (80 mg total) by mouth daily PLAN/RECOMMENDATIONS 71 y.o. male with hypertension, history of AV block status post Medtronic pacemaker placement in June 2020, peripheral artery disease involving left lower extremity and carotid arteries, status post left lower extremity intervention; status post right carotid enterectomy; COPD/chronic respiratory failure on home oxygen, history of COVID-19 infection. - patient has been worsening bilateral lower extremity claudication. Recent angiogram showed aortoiliac and femoral disease. Vascular surgery was consulted, and patient may possibly undergo surgical revascularization. Continues to have lifestyle limiting claudication. No ischemic foot ulcers. Patient will undergo pharmacological stress test to evaluate for any significant myocardial ischemia prior to surgical revascularization. - continue medical treatment with single antiplatelet-clopidogrel, and anticoagulation with low-dose rivaroxaban 2.5 mg p.o. b.i.d.. -current LDL 83, target LDL is less than 70. Increase atorvastatin dose to 80 mg p.o. q.h.s.. - patient has CKD. 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 -patient updated about recent echocardiogram which showed preserved ejection fraction, grade 1 diastolic dysfunction and mild aortic stenosis. Periodic surveillance echocardiogram for progression of aortic stenosis [...] aerobic activity as tolerated. -follow-up in about 10-12 weeks or sooner if needed. Josiah Baca MD 03/17/22 Voice recognition software was used to complete this document, therefore, gatekeeper variances may occur. documented in this encounter Miscellaneous Notes * Addendum Note - Ivy Collado MA - 03/17/2022 11:45 AM CDTAddended by: IVY COLLADO on: 03/17/2022 12:59 PM Modules accepted: Orders documented in this encounter Plan of Treatment Not on file documented as of this encounter Procedures Procedure Name Priority Date/Time Associated Diagnosis Comments POCT LIPID PANEL Routine 03/17/2022 12:5 8 PM CDT Lipid screening documented in this encounter Results * NM MPI SPECT (Rest and/or Stress) Multiple Studies (04/08/2022 10:35 AM CDT) Anatomical Region Laterality Modality Body N/A Nuclear Medicine 04/08/2022 8:12 AM CDT Narrative 04/08/2022 2:05 PM CDT [facility] Cardiology [address] [address] [address], [place] [address] P:[phone] P:[phone] MPI Imaging Report Patient Name: TOBY HILL Olu : 1950 Study Date: 04/08/2022 8:12:07 AM Gender: M Tech: [facility] Location: [place] Ref.Provider: JOSIAH BACA Height(Cm): 172.7 BSA: Weight(Kg): [...] inferoseptal alethea-infarct ischemia. Recommend follow up with sweater designer. Electronically Signed By: Odell Mcgovern MD 2022-04-08 14:05:12 CDT Electronically Signed By: Odell Mcgovern MD 2022-04-08 14:05:12 CDT CC: CC: Procedure Note Tigre Mcgovern MD - 04/08/2022 [facility] Cardiology [address], [place] [address] [address], [place] [address] P:[phone] P:[phone] MPI Imaging Report Patient Name: TOBY HILL JPatied ID: [id number] : [id number] Date: 04/08/2022 8:12:07 AM Gender: MAccession #: [id number] Tech: , [facility] [place] Ref.Provider: JOSIAH BACAHeight(Cm): 172.7 BSA: Weight(Kg): 91.4 [...] inferoseptal alethea-infarct ischemia. Recommend follow up with sweater designer. Electronically Signed By: Odell Mcgovern MD 2022-04-08 14:05:12 CDT Electronically Signed By: Odell Mcgovern MD 2022-04-08 14:05:12 CDT CC: CC: Josiah Baca MD [facility] PROCEDURES Final Result * POCT lipid panel (03/17/2022 12:58 PM CDT) Cholesterol, POC 161 mg/dL HDL, POC 65 mg/dL Triglycerides, POC <45 mg/dL LDL Cholesterol POC 83 mg/dL Chol/HDL Ratio, POC 2.5 Non-HDL Cholesterol, POC 96 mg/dL Cholesterol Total, POC 161 mg/dL Capillary blood 03/17/2022 1 2:58 PM CDT Josiah Baca MD POINT OF CARE TEST ORDERABLES Fi nal Result documented in this encounter Visit Diagnoses Diagnosis Preop cardiovascular exam- Primary Pre-operative cardiovascular examination PAD (peripheral artery disease) (HCC) Unspecified peripheral vascular disease Claudication (HCC) Unspecified peripheral vascular disease History of complete AV block Pacemaker Cardiac pacemaker in situ Essential hypertension Unspecified essential hypertension Mild aortic stenosis Aortic valve disorders Chronic respiratory failure with hypoxia, on home O2 therapy (CMS/HCC) (HCC) MONTEZ (dyspnea on exertion) Other dyspnea and respiratory abnormality Lipid screening Screening for lipoid disorders PAD (peripheral artery disease) (HCC) Unspecified peripheral vascular disease Claudication (HCC) Unspecified peripheral vascular disease MONTEZ (dyspnea on exertion) Other dyspnea and respiratory abnormality documented in this encounter Discontinued Medications Medication Sig Discontinue Reason Start Date End Da te atorvastatin (LIPITOR) 40 mg tablet Take 40 mg by mouth daily 04/14/2021 03/17/2022 documented as of this encounter Care Teams Conductor Orchestra Relationship Specialty Start Date End Date Ross Espinosa MD [address] [place] [address] PCP - General 03/03/22 04/07/22 documented as of this encounter
--- OUTSIDE RECORDS SUMMARY | 2024-09-12 15:41 | XMS_ITS | Encounter Summary ---
Author Organization [facility] Address [address] [place] [address] Care Team Providers Care Human Services Program Specialist Name Role Phone Ross Espinosa MD Primary Care Provider [phone] Reason for Visit * Cardiology (Routine) - Closed Specialty Diagnoses / Procedures Referred By Contac t Referred To Contact Diagnoses History of complete AV block Pacemaker Procedures DEVICE CHECK - IN OFFICE Josiah Lay MD [address] [address] Phone: tel: fax: [facility] Referral ID Status Reason Start Date Expiration Date Visits Re quested Visits Authorized [id number] Closed 06/04/2021 07/04/2022 1 1 Encounter Details Date Type Department Care Team (Latest Contact Info) Description 08/12/2021 8:30 AM 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 Ancillary Procedure [facility] Cardiology [address] [address] [address] [place] [id number] History of complete AV block; Pacemaker; Cardiac pacemaker in situ Social History Tobacco Use Types Packs/Day Years Used Date Smoking Tobacco: Former Cigarettes Q uit: 08/22/2009 Smokeless Tobacco: Never Sex and Gender Information Value Date Recorded Sex Assigned at Not on file Legal Sex Male 1:43 PM CDT Gender Identity Male 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 Dx; Second Degree AVB, Symptomatic Bradycardia. DOI 05/02/2019-Dr Zenia Good ([place]). [facility] remote. Office pacemaker evaluation demonstrated appropriate device function. Battery function-2.98V, 6.2 years remaining battery life to [place]MEL[place]. Presenting rhythm-ASVP. Underlying rhythm-SR with First Degree AV Block. NE interval 240 ms. AP-2.5%, SUTURE POLISHER-99%. 15 mode switch episodes recorded, iegm's Afib/Aflutter, longest episode 30 min to 1 hour. No Ventricular high rate episodes noted. Medications; Eliquis, Plavix. Atrial amplitude decreased to 1.5V. Ventricular amplitude decreased to 2.0V and PW increased to 1.0 ms. See scanned report. ?? [facility] remote f/u 11/11/2021. 08/12/2021-carelink remote transfer requested through web site. Josiah Lay MD [facility] PROCEDURES F inal Result documented in this encounter Visit Diagnoses Diagnosis History of complete AV block Pacemaker Cardiac pacemaker in situ Cardiac pacemaker in situ documented in this encounter Care Teams Human Services Program Specialist Relationship Specialty Start Date End Date Ross Espinosa MD [address] [place] [address] PCP - General 06/11/21 03/02/22 documented as of this encounter
--- OUTSIDE RECORDS SUMMARY | 2024-09-12 15:41 | XMS_ITS | Encounter Summary ---
Author Organization [facility] Address [address] [place] [address] Care Team Providers Care Valve And Regulator Repairer Name Role Phone Ross Espinosa MD Primary Care Provider [phone] Reason for Referral * Cardiology (Routine) - Closed Specialty Diagnoses / Procedures Referred By Contac t Referred To Contact Diagnoses MONTEZ (dyspnea on exertion) Chronic respiratory failure with hypoxia, on home O2 therapy (CMS/HCC) (HCC) Procedures Transthoracic Echo Complete W Doppler/CF Waldemar Baca MD [address] [place] [address] Phone: tel: fax: [facility] Referral ID Status Reason Start Date Expiration Date Visits Re quested Visits Authorized [id number] Closed 10/21/2021 11/20/2022 1 1 LLITE COMMUNICATIONS OPERATOR Reason for Visit * Reason Comments Claudication 6 month fu Encounter Details Date Type Department Care Team (Late st Contact Info) Description 10/21/2021 11:30 AM SATELLITE COMMUNICATIONS OPERATOR Office Visit [facility] Cardiology [address] [place] [address] Waldemar Baca MD [address] [place] [address] Claudication (CMS/HCC) (HCC) (Primary Dx); PAD (peripheral artery disease) (CMS/HCC) ([facility]); MONTEZ (dyspnea on exertion); Chronic respiratory failure with hypoxia, on home O2 therapy ([facility]) ([facility]) Social History Tobacco Use Types Packs/Day Years Used Date Smoking Tobacco: Former Cigarettes Q uit: 08/22/2009 Smokeless Tobacco: Never Sex and Gender Information Value Date Recorded Sex Assigned at Not on file Legal Sex Male 1:43 PM CDT Gender Identity Male 08/12/2022 2:14 PM SATELLITE COMMUNICATIONS OPERATOR Sexual Orientation Not on file documented as of this encounter Last Filed Vital Signs Vital Sign Reading Time Taken Comments Blood Pressure 130/76 10/21/2021 11:23 AM SATELLITE COMMUNICATIONS OPERATOR Pulse 88 10/21/2021 11:23 AM SATELLITE COMMUNICATIONS OPERATOR Temperature - - Respiratory Rate - - Oxygen Saturation 94% 10/21/2021 11:23 AM SATELLITE COMMUNICATIONS OPERATOR Inhaled Oxygen Concentration - - Weight 86.2 kg (190 lb) 10/21/2021 11:23 AM SATELLITE COMMUNICATIONS OPERATOR Height 172.7 cm (5' 8) 10/21/2021 11:23 AM SATELLITE COMMUNICATIONS OPERATOR Body Mass Index 28.89 10/21/2021 11:23 AM SATELLITE COMMUNICATIONS OPERATOR documented in this encounter Ordered Prescriptions Prescription Sig Dispense Quantity Refills Last Filled Start Date End Date cilostazoL (PLETAL) 100 mg tabletIndications: Intermittent Claudication Take 1 tablet (100 mg total) by mouth 2 (two) times a day 60 tablet 11 10/21/2021 12/30/2021 documented in this encounter Progress Notes * Waldemar Baca MD - 10/21/2021 11:30 AM CST [facility] CARDIOLOGY 10/21/2021 CHIEF COMPLAINT Chief Complaint Patient presents with ??? Claudication 6 month fu HPI Toby Hill is a 71 y.o. [...] to local area in October 2020 from [place], [place]. Patient has extensive cardiovascular history. His [...] placement. He denies any history of clinical IA, angina. At present, patient has dyspnea on [...] routine follow-up visit. He was hospitalized at [facility] in June 2021 with worsening [...] medical regimen. Patient is on home oxygen. MEDICAL HISTORY he has a past medical history of Anemia, Arthritis, Asthma, AV block, Carotid stenosis, CKD (chronic kidney disease) stage 3, GFR 30-59 ml/min ([facility]), Claudication ([facility]/HCC) ([facility]), COPD (chronic obstructive pulmonary disease) ([facility]/HCC) ([facility]), COVID-19 (05/2020), Empyema ([facility]/HCC) ([facility]) (05/2020), GERD (gastroesophageal reflux disease), Hyperkalemia, Hypertension, PAD (peripheral artery disease) ([facility]/HCC) ([facility]), Pneumonia (2018), and Sleep apnea. He has [...] Years (N/A, 06/19/2021). he Allergies Allergen Reactions ??? Augmentin [Amoxicillin-Pot Clavulanate] Hives ??? Cephalexin Stomach upset and Vomiting Current Outpatient Medications Medication Sig Dispense Refill [...] INHALATION ROUTE NEEDED FOR 30 DAYS. ??? apixaban (ELIQUIS) 2.5 mg tablet Take 2.5 mg by mouth 2 (two) times a day ??? atorvastatin (LIPITOR) 40 mg tablet Take 40 mg by mouth daily ??? carvediloL (COREG) 25 mg tablet Take 1.5 tablets by mouth 2 (two) times a day ??? cetirizine 10 mg capsule Take by mouth ??? clopidogreL (PLAVIX) 75 mg tablet Take 75 mg by mouth daily ??? doxepin (SINEquan) 25 mg capsule Take 25 mg by mouth nightly ??? dupilumab (DUPIXENT) syringe Inject 300 mg under the skin every 14 (fourteen) days ??? furosemide (LASIX) 40 mg tablet Take 40 mg by mouth daily. Indications: per md advisement ??? gabapentin (NEURONTIN) 300 mg capsule Take 300 mg by mouth daily as needed ??? melatonin 5 mg capsule Take by mouth ??? multivitamin capsule Take 1 capsule by mouth daily ??? oxygen Administer 3 L/min into each nostril as needed (hypoxia). Indications: trouble breathing ??? potassium chloride ER (KLOR-CON) 10 mEq CR tablet Take 10 mEq by mouth daily. Indications: low amount of potassium in the blood ??? Spiriva Respimat 2.5 mcg/actuation inhaler INHALE 2 PUFFS BY MOUTH ONCE DAILY ??? tamsulosin (FLOMAX) 0.4 mg extended release capsule Take 2 capsules (0.8 mg total) by mouth daily with dinner ??? traMADoL (ULTRAM) 50 mg tablet Take 50 mg by mouth every 6 (six) hours as needed ??? cilostazoL (PLETAL) 100 mg tablet Take 1 tablet (100 mg total) by mouth 2 (two) times a day 60 tablet 11 No current facility-administered medications for this visit. he family history includes Asthma in his mother; Diabetes in his mother; Heart disease in his father; Hypertension in his father and mother. he reports that he quit smoking about 12 years ago. He has never used smokeless tobacco. Ex-smoker,no alcohol or illicit drugs. Lives with his family. REVIEW OF SYSTEMS General ROS: negative for - Fever, chills, fatigue Psychological ROS: negative for - anxiety, [...] negative for - chest pain, positive for shortness of breath after walking less than 1 block Gastrointestinal ROS: negative for - abdominal pain, nausea/vomiting, hematemesis, blood in the stool Endocrine ROS: negative for - hot flashes, polydipsia/polyuria Musculoskeletal ROS: Positive for leg claudication, left worse than right Neurological ROS: negative for - gait disturbance, weakness Dermatological ROS: negative for pruritus, rash LABS AND OTHER DIAGNOSTIC TESTS REVIEWED Lab Results Component Value Date WBC 9.7 07/14/2021 HGB 9.3 (L) 07/14/2021 HCT 30.6 (L) 07/14/2021 MCV 95.0 07/14/2021 No lab exists for component: LABALBU Lab Results Component Value Date WBC 9.7 07/14/2021 HGB 9.3 (L) 07/14/2021 HCT 30.6 (L) 07/14/2021 MCV 95.0 07/14/2021 No results found for: CHOL No results found for: HDL No results found for: LDL] No results found for: TRIG Lipids-total cholesterol 122, HDL 50, triglycerides 51, LDL 60. 03/10/2021 Labs-hemoglobin 12.3, potassium 4.6, creatinine 1.91, GFR 35;. 03/24/2021 [facility] EKG-sinus rhythm, left bundle-branch block. 05/13/2021 Carotid duplex-less than 50% stenosis bilateral ICA. 05/27/2021 [facility] SULEMA/Doppler-right SULEMA 0.66, right TBI 0.35. Arterial waveforms are biphasic with brisk systolic upstroke throughout. Left SULEMA 0.81, left SULEMA 0.64. Arterial waveforms are biphasic with brisk systolic upstroke throughout. 05/27/2021 [facility] Venous duplex-no DVT. 07/17/2021 [facility] PHYSICAL EXAM Vitals BP 130/76 (BP Location: Right arm, Patient Position: Sitting) Pulse 88 Ht 172.7 cm (5' 8) Wt 86.2 kg (190 lb) SpO2 94% BMI 28.89 kg/m?? General appearance - alert, no distress, oriented to time, place, person Mental status - affect appropriate to mood Eyes - extraocular eye movements intact, no pallor Ears - external ears appear normal, hearing grossly normal Nose - normal and patent, no discharge Mouth - mucous membranes moist, tongue normal Neck - right neck surgical scar from carotid endarterectomy, bilateral carotid bruits audible, no JVD Chest - diminished breath sounds globally Heart - normal rate, distant heart sounds Abdomen - soft, nontender, nondistended, bowel sounds present Neurological - alert, oriented, normal speech, no gross motor deficits Musculoskeletal - no major deformity, no amputations Extremities - no pedal edema, no clubbing or cyanosis Skin - no rashes (on the exposed areas), no cyanosis Vascular-bilateral dorsalis pedis pulses are dopplerable; bilateral posterior tibial pulses non dopplerable ASSESSMENT Diagnoses and all orders for this visit: Claudication ([facility]) ([facility]) (Primary) PAD (peripheral artery disease) ([facility]) (HCC) MONTEZ (dyspnea on exertion) - Transthoracic Echo Complete W Doppler/CF; Future Chronic respiratory failure with hypoxia, on home O2 therapy (CMS/HCC) (HCC) - Transthoracic Echo Complete W Doppler/CF; Future Other orders - cilostazoL (PLETAL) 100 mg tablet; Take 1 tablet (100 mg total) by mouth 2 (two) times a day PLAN/RECOMMENDATIONS 71 y.o. male with hypertension, history of AV block status post [employer] pacemaker placement in June 2020, peripheral artery disease involving left lower extremity and carotid arteries, status post left lower extremity intervention; status post right carotid enterectomy; COPD/chronic respiratory failure on home oxygen, history of COVID-19 infection. - recent hospitalization for COPD exacerbation with volume overload. Currently has chronic dyspnea on exertion after walking less than 1 block, which is predominantly secondary to underlying lung condition. Advised to continue to follow-up with pulmonology. Continue supplemental oxygen. -patient has peripheral artery disease, lifestyle limiting claudication, left worse than right. Recent SULEMA/Doppler suggestive of obstructive peripheral artery disease. At this time, will add cilostazol to medical regimen to improve walking distance. Continue clopidogrel. Patient is also on low-doseapixaban which patient states was initiated while he was in [place]. Continue statin, current LDL is 60. Will continue to monitor for any improvement in the symptoms. Will consider invasive workup with peripheral angiogram with an eye towards intervention if necessary based on clinical course. - patient has CKD. Information was provided to him to establish a meat cutting block repairer. -due to dyspnea on exertion, will proceed with echocardiogram with Doppler to check for any structural heart disease. -patient has history of carotid stenosis and right CEA. Recent carotid duplex reassuring. Continue antiplatelet treatment, statin. -blood pressure is well controlled. Continue current antihypertensives. Continue current antihypertensives, monitor blood pressure. Low-salt diet counseling was done. -periodic pacemaker interrogations. -medical records from [place], [place] will be requested. -personally reviewed medical records from [facility] including EKG, ER notes, cardiology notes, labs. -Counseling was done for heart healthy diet, aerobic exercise at least 5 times a week, Medication compliance. -follow-up in 3 months or sooner if needed. Waldemar Baca MD 10/21/21 Voice recognition software was used to complete this document, therefore, pipe insulator helper variances may occur. LLITE COMMUNICATIONS OPERATOR documented in this encounter Plan of Treatment Not on file documented as of this encounter Results * TRANSTHORACIC ECHO (TTE) COMPLETE W DOPPLER/CF W CONTRAST (11/24/2021 12:45 PM CDT) Anatomical Region Laterality Modality Ultrasound 11/24/2021 11:3 7 AM CDT Narrative 11/24/2021 4:42 PM CDT [facility] Cardiology [address], [place] [address] [address], [place] [address] P:[phone] P:[phone] Echocardiographic Report Patient Name: TOBY HILL : 1950 Study Date: 11/24/2021 11:37:02 AM Gender: M Tech: Location: CT Ref.Provider: WALDEMAR BACA Height(Cm): 173 BSA: 2 Weight(Kg): 86.18 Heart Rate: 82 BP: 140/83 Quality: Definity contrast agent used to enhance endocardial border definition Order Provider: WALDEMAR BACA Procedures: Echocardiographic Report: Transthoracic echocardiogram with complete 2D, M-Mode, color Doppler examination and Definity contrast. Indications: Dyspnea on Exertion and Respiratoy Failure with Hypoxia. Measurements: 2D/M Mode ?Doppler ? Measurement ?Value ?Normal Range ? Measurement ?Value ?Normal Range ? EF Mod ? 66 ?ISAIAH ?1.79 ? [ 2.00 - 4.00 ] cm2 ? EF MM ?47 ? [ 55 - 70 ] % ?AV Mean PG ? 5 ?mmHg ? LVIDd MM ? 5.83 ? [ 3.90 - 5.30 ] cm ? AV Peak Rajesh ?1.58 ? m/s ? LVIDs MM ? 4.42 ? [ 2.30 - 3.90 ] cm ? AV Peak PG ? 10 ? mmHg ? LVPWd MM ? 1.33 ? [ 0.60 - 1.00 ] cm ? AV VTI ? 0.29 ? cm ? IVSd MM ?1.33 ? [ 0.60 - 0.90 ] cm ? LVOT Diam ?2.27 ? [ 1.70 - 2.10 ] cm ? LA Dimension MM ?4.25 ? [ 2.70 - 3.80 ] cm ? LVOT Peak Rajesh ?0.70 ? [ 0.70 - 1.10 ] m/s ? AoR Diam MM ?3.25 ? [ 2.60 - 3.70 ] cm ? LVOT VTI ? 0.11 ? cm ? LA Volume Index ?22.00 ?[ 16.00 - 28.00 ] cc/m2 ?MV E Peak Rajesh ?0.43 ? [ 0.60 - 1.30 ] m/s ? ACS MM ? 2.00 ? cm ? MV A Peak Rajesh ?0.80 ? [ 0.40 - 0.80 ] m/s ? MV Decel Time ?174 ?[ 150 - 200 ] msec ? PV Peak Rajesh ?0.72 ? [ 0.40 - 0.80 ] m/s ? E' ? 0.07 ? E/E' ? 6 ? Findings: Interpretation Site: Exam was interpreted at [facility]. Left Ventricle: Normal left ventricular size. Definity contrast agent used to visually enhance endocardial wall motion and contractility. Lot Number: [id number]. Normal global left ventricular systolic function. Impaired diastolic relaxation Grade I. Ejection fraction is measured at 66 %. Right Ventricle: Normal right ventricular size. Left Atrium: There is mild enlargement of left atrium. Right Atrium: The right atrium is normal in size. Atrial Septum: Normal atrial septum. Mitral Valve: Normal appearance of the mitral valve. Aortic Valve: Peak gradient of 10.0 mmHg. Mean gradient of 5.0 mmHg. Valve area of 1.79 cm2. Aortic cusps appear mildly sclerotic. Tricuspid Valve: Normal appearance of the tricuspid valve. Pulmonic Valve: Pulmonic valve not well visualized. Pericardium: Normal pericardium with no significant pericardial effusion. Aorta: Normal aortic root. IVC: Normal size and normal respiratory collapse consistent with normal right atrial pressure (<5 mmHg). Pulmonary Artery: Normal pulmonary artery size. Conclusions: Normal left ventricular size. Definity contrast agent used to visually enhance endocardial wall motion and contractility. Lot Number: [id number]. Normal global left ventricular systolic function. Impaired diastolic relaxation Grade I. Ejection fraction is measured at 66 %. There is mild enlargement of left atrium. Normal appearance of the mitral valve. Peak gradient of 10.0 mmHg. Mean gradient of 5.0 mmHg. Valve area of 1.79 cm2. Aortic cusps appear mildly sclerotic. Electronically Signed By: Talon Good MD, [facility] 2021-11-24 16:42:23 CDT Procedure Note Talon Good MD - 11/24/2021 [facility] Cardiology [address], [place] [address] [id number], [place] [address] P:[phone] P:[phone] Echocardiographic Report Patient Name: TOBY HILLPatient ID: [id number] : [id number] Date: 11/24/2021 11:37:02 AM Gender: MAccession #: [id number] Tech: GMLocation: CT Ref.Provider: WALDEMAR BACAHeight(Cm): 173 BSA: 2Weight(Kg): 86.18 Heart Rate: 82BP: 140/83 Quality: Definity contrast agent used to enhance endocardial borderdefinitionOrder Provider: WALDEMAR BACA Procedures: Echocardiographic Report: Transthoracic echocardiogram with complete 2D, M-Mode, color Dopplerexamination and Definity contrast. Indications: Dyspnea on Exertion and Respiratoy Failure with Hypoxia. Measurements: 2D/M Mode Doppler Measurement Value Normal Range MeasurementValue Normal Range EF Mod 66 AVA1.79 [ 2.00 - 4.00 ] cm2 EF MM 47 [ 55 - 70 ] % AV Mean PG 5mmHg LVIDd MM 5.83 [ 3.90 - 5.30 ] cm AV Peak Vel1.58 m/s LVIDs MM 4.42 [ 2.30 - 3.90 ] cm AV Peak PG 10mmHg LVPWd MM 1.33 [ 0.60 - 1.00 ] cm AV VTI0.29 cm IVSd MM 1.33 [ 0.60 - 0.90 ] cm LVOT Diam2.27 [ 1.70 - 2.10 ] cm LA Dimension MM 4.25 [ 2.70 - 3.80 ] cm LVOT Peak Vel0.70 [ 0.70 - 1.10 ] m/s AoR Diam MM 3.25 [ 2.60 - 3.70 ] cm LVOT VTI0.11 cm LA Volume Index 22.00 [ 16.00 - 28.00 ] cc/m2 MV E Peak Vel0.43 [ 0.60 - 1.30 ] m/s ACS MM 2.00 cm MV A Peak Vel0.80 [ 0.40 - 0.80 ] m/s MV Decel Hreo549 [ 150 - 200 ] msec PV Peak Vel0.72 [ 0.40 - 0.80 ] m/s E'0.07 E/E' 6 Findings: Interpretation Site: Exam was interpreted at [facility]. Left Ventricle: Normal left ventricular size. Definity contrast agent used to visuallyenhance endocardial wall motion and contractility. Lot Number: [id number]. Normalglobal left ventricular systolic function. Impaired diastolic relaxation Grade I.Ejection fraction is measured at 66 %. Right Ventricle: Normal right ventricular size. Left Atrium: There is mild enlargement of left atrium. Right Atrium: The right atrium is normal in size. Atrial Septum: Normal atrial septum. Mitral Valve: Normal appearance of the mitral valve. Aortic Valve: Peak gradient of 10.0 mmHg. Mean gradient of 5.0 mmHg. Valve area of 1.79cm2. Aortic cusps appear mildly sclerotic. Tricuspid Valve: Normal appearance of the tricuspid valve. Pulmonic Valve: Pulmonic valve not well visualized. Pericardium: Normal pericardium with no significant pericardial effusion. Aorta: Normal aortic root. IVC: Normal size and normal respiratory collapse consistent with normal rightatrial pressure (<5 mmHg). Pulmonary Artery: Normal pulmonary artery size. Conclusions: Normal left ventricular size. Definity contrast agent used to visuallyenhance endocardial wall motion and contractility. Lot Number: [id number]. Normalglobal left ventricular systolic function. Impaired diastolic relaxation Grade I.Ejection fraction is measured at 66 %. There is mild enlargement of left atrium. Normal appearance of the mitral valve. Peak gradient of 10.0 mmHg. Mean gradient of 5.0 mmHg. Valve area of 1.79cm2. Aortic cusps appear mildly sclerotic. Electronically Signed By: Talon Good MD, [facility] 2021-11-24 16:42:23 CDT Waldemar Baca MD CV ECHO PROCEDURES Final Result documented in this encounter Visit Diagnoses Diagnosis Claudication (HCC)- Primary Unspecified peripheral vascular disease PAD (peripheral artery disease) (HCC) Unspecified peripheral vascular disease MONTEZ (dyspnea on exertion) Other dyspnea and respiratory abnormality Chronic respiratory failure with hypoxia, on home O2 therapy (CMS/HCC) (HCC) MONTEZ (dyspnea on exertion) Other dyspnea and respiratory abnormality Chronic respiratory failure with hypoxia, on home O2 therapy (CMS/HCC) (HCC) documented in this encounter Discontinued Medications Medication Sig Discontinue Reason Start Date End Da te sodium chloride 0.9% (Normal Saline Flush) injectionIndications:F lushing Infuse 10 mL into a venous catheter daily. Flush before and after iv antibiotic therapy. Flush 2nd lumen daily with saline followed by heparin Indications: temporary redness of face and neck Therapy completed 06/24/2021 10/21/2021 polyethylene glycol (MIRALAX) 17 gram packetIndications:cons tipation Take 1 packet (17 g total) by mouth daily Therapy completed 06/23/2021 10/21/2021 oxyCODONE (ROXICODONE) 5 mg immediate release tabletIndications:Pain Take 1 tablet (5 mg total) by mouth every 4 (four) hours as needed for pain Therapy completed 06/23/2021 10/21/2021 heparin sod,porcine/0.9 % NaCl (HEPARIN FLUSH IV)Indications:Flushin g Infuse 5 mL into a venous catheter daily. Heparin 50 units/5ml Flush both lines daily after last saline flush Indications: temporary redness of face and neck Therapy completed 10/21/2021 ONDANSETRON ORALIndications:nausea or vomiting Take 4 mg by mouth every 8 (eight) hours as needed (nausea or vomiting). Indications: nausea or vomiting Therapy completed 10/21/2021 omeprazole (PriLOSEC) 20 mg capsule TAKE 1 CAPSULE BY MOUTH EVERY MORNING BEFORE BREAKFAST 03/06/2021 10/21/2021 documented as of this encounter Care Teams Valve And Regulator Repairer Relationship Specialty Start Date End Date Ross Espinosa MD [address] [place] [address] PCP - General 06/11/21 03/02/22 documented as of this encounter
--- OUTSIDE RECORDS SUMMARY | 2024-09-12 15:41 | XMS_ITS | Encounter Summary ---
Author Organization [facility] Medical Group Address [address] [address] Care Team Providers Care Cabin Outfitter Name Role Phone Ross Espinosa MD Primary Care Provider [phone] [phone] Encounter Details Date Type Department Care Team (Late st Contact Info) Description 02/26/2022 Telephone [facility] Medical Group Cardiology [address] [address] Tiki Garber Social History Tobacco Use Types Packs/Day Years Used Date Smoking Tobacco: Former Cigarettes Q uit: 08/22/2009 Smokeless Tobacco: Never Sex and Gender Information Value Date Recorded Sex Assigned at Not on file Legal Sex Male 1:43 PM CDT Gender Identity Male 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 * Telephone Encounter - Tiki Garber - 02/26/2022 1:34 PM CDT Pt scheduled for surgery 03/03 requesting a call in regard to lab orders.Thank you Contact:[phone] documented in this encounter Plan of Treatment Not on file documented as of this encounter Procedures Procedure Name Priority Date/Time Associated Diagnosis Comments CBC WITH AUTO DIFFERENTIAL Routine 02/26/2022 2:16 PM CDT PVD (peripheral vascular disease) (CMS/HCC) (HCC) ALFREDO (acute kidney injury) (CMS/HCC) (HCC) Pain in both lower extremities COMPREHENSIVE METABOLIC PANEL Routine 02/26/2022 2:16 PM CDT PVD (peripheral vascular disease) (CMS/HCC) (HCC) ALFREDO (acute kidney injury) (CMS/HCC) (HCC) Pain in both lower extremities documented in this encounter Results * (ABNORMAL) CBC with auto differential (02/26/2022 2:16 PM CDT) WBC 8.5 3.8 - 10.8 Thousand/u L [facility] RBC, POC 4.18(L) 4.20 - 5.80 Million/uL [facility] Hgb 11.0(L) 13.2 - 17.1 g/dL [facility] Hct 35.6(L) 38.5 - 50.0 % [facility] MCV 85.2 80.0 - 100.0 fL [facility] MCH 26.3(L) 27.0 - 33.0 pg [facility] MCHC 30.9(L) 32.0 - 36.0 g/dL [facility] Rdw 14.3 11.0 - 15.0 % [facility] Platelets 98(L) 140 - 400 Thousand/u L [facility] MPV 10.9 7.5 - 12.5 fL [facility] Neutrophils, abs 6,775 1,500 - 7,800 cells/uL [facility] Lymphocytes, abs 927 850 - 3,900 cells/uL [facility] Monocyte abs 544 200 - 950 cells/uL [facility] Eosinophils, abs 238 15 - 500 cells/uL [facility] Basophils, abs 17 0 - 200 cells/uL [facility] Neutrophils 79.7 % [facility] Lymphocyte pct 10.9 % [facility] Monocytes 6.4 % [facility] Eosinophils 2.8 % [facility] Basophils 0.2 % [facility] Blood specimen (specimen) 02/26/2022 2:16 PM CDT 02/26/2022 2:19 PM CDT us Josiah Lay MD LAB BLOOD ORDERABLES Final Resul t [facility] [address] [facility] [place] [address] * (ABNORMAL) Comprehensive metabolic panel (02/26/2022 2:16 PM CDT) Glucose 102(H) 65 - 99 mg/dL [facility] Comment: ? Fasting reference interval For someone without known diabetes, a glucose value between 100 and 125 mg/dL is consistent with prediabetes and should be confirmed with a follow-up test. BUN 26(H) 7 - 25 mg/dL [facility] Creatinine 1.75(H) 0.70 - 1.18 mg/dL [facility] Comment: For patients >49 years of age, the reference limit for Creatinine is approximately 13% higher for people identified as -[place]unisian. eGFR NON-AFR. VIET[place]ESE 39(L) > OR = 60 mL/min/1. 73m2 [facility] EGFR 45(L) > OR = 60 mL/min/1. 73m2 [facility] BUN/creat ratio 15 6 - 22 (calc) [facility] Sodium 141 135 - 146 mmol/L [facility] Potassium, pl 4.3 3.5 - 5.3 mmol/L [facility] Chloride 106 98 - 110 mmol/L [facility] CO2 31 20 - 32 mmol/L [facility] Calcium 8.8 8.6 - 10.3 mg/dL [facility] Protein, sr 6.5 6.1 - 8.1 g/dL [facility] Albumin 3.7 3.6 - 5.1 g/dL [facility] GLOBULIN 2.8 1.9 - 3.7 g/dL (calc) [facility] Alb/glob ratio 1.3 1.0 - 2.5 (calc) [facility] Bilirubin, total 0.4 0.2 - 1.2 mg/dL [facility] Alk phos 102 35 - 144 U/L [facility] AST 12 10 - 35 U/L [facility] ALT (SGPT) 9 9 - 46 U/L [facility] Blood specimen (specimen) 02/26/2022 2:16 PM CDT 02/26/2022 2:19 PM CDT us Josiah Lay MD LAB BLOOD ORDERABLES Final Resul t [facility] [address] [place] [address] documented in this encounter Visit Diagnoses Diagnosis PVD (peripheral vascular disease) (HCC)- Primary Unspecified peripheral vascular disease ALFREDO (acute kidney injury) (HCC) Pain in both lower extremities documented in this encounter Care Teams Cabin Outfitter Relationship Specialty Start Date End Date Ross Espinosa MD [address] [place] [address] PCP - General 06/11/21 03/02/22 documented as of this encounter
--- OUTSIDE RECORDS SUMMARY | 2024-09-12 15:41 | XMS_ITS | Encounter Summary ---
Author Organization [facility] Address [address] [address] Care Team Providers Care Flame Hardening Machine Operator Name Role Phone Ross Espinosa MD Primary Care Provider [phone] Reason for Visit * Cardiology (Routine) - Closed Specialty Diagnoses / Procedures Referred By Contac t Referred To Contact Diagnoses History of complete AV block Pacemaker Procedures DEVICE CHECK - REMOTE Josiah Lay MD [address] [place] [address] Phone: tel: fax: [facility] Referral ID Status Reason Start Date Expiration Date Visits Re quested Visits Authorized [id number] Closed 06/04/2021 07/04/2022 1 1 Encounter Details Date Type Department Care Team (Latest Contact Info) Description 11/18/2021 10:15 AM CDT Ancillary Procedure [facility] Cardiology [address] [place] [phone] History of complete AV block; Pacemaker; Cardiac pacemaker in situ Social History Tobacco Use Types Packs/Day Years Used Date Smoking Tobacco: Former Cigarettes Q uit: 08/22/2009 Smokeless Tobacco: Never Sex and Gender Information Value Date Recorded Sex Assigned at Not on file Legal Sex Male 1:43 PM CDT Gender Identity Male 08/12/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 Dx; Second Degree AVB, Symptomatic Bradycardia. DOI 05/02/2019-Dr Zenia Good ([place]). [facility] remote. Routine Pacemaker remote. Normal device function. Battery function-2,99V, 6.9 years remaining battery life to HERMELINDO. Appropriate lead measurements. Presenting rhythm- AP-8%, DIRECTOR OF HEMOPHILIA-100%. No Atrial high rate episodes noted. No Ventricular high rate episodes noted. Medications; Xarelto, Plavix, Coreg. See scanned report. Office pacemaker f/u 09/13/2022. Carelink remote f/u 02/17/2022. Josiah Lay MD [facility] PROCEDURES F inal Result documented in this encounter Visit Diagnoses Diagnosis History of complete AV block Pacemaker Cardiac pacemaker in situ Cardiac pacemaker in situ documented in this encounter Care Teams Flame Hardening Machine Operator Relationship Specialty Start Date End Date Ross Espinosa MD [address] [place] [address] PCP - General 06/11/21 03/02/22 documented as of this encounter
--- OUTSIDE RECORDS SUMMARY | 2024-09-12 15:41 | XMS_ITS | Encounter Summary ---
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, bilateral legs (HCC) Presence of other vascular implants and grafts Procedures US Arterial Duplex Lower Extremity Bilateral Aggie Villagran NP [address] [id number] [place] [address] Phone: tel: fax: [facility] (All Locations) Referral ID Status Reason Start Date Expiration Date Visits Re quested Visits Authorized [id number] Closed 03/03/2022 04/02/2023 1 1 * Diagnostic Imaging (Routine) - Closed Specialty Diagnoses / Procedures Referred By Contmallorie carver Referred To Contact Diagnoses 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, bilateral legs (HCC) Procedures US SULEMA Aggie Villagran NP [address] [facility] [address] [place] [address] Phone: tel: fax: [facility] (All Locations) Referral ID Status Reason Start Date Expiration Date Visits Re quested Visits Authorized [id number] Closed 03/03/2022 04/02/2023 1 1 Encounter Details Date Type Department Care Team (Late st Contact Info) Description 03/03/2022 Orders Only [facility] Surgery [address] [place] [address] Medical Office Building [address] [place] [phone] Aggie Villagran NP [address] [place] [address] [address] [place] [address] 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, bilateral [...] CDT Gender Identity Male 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 Sexual Orientation Not on file documented as of this encounter Plan of Treatment Not on file documented as of this encounter Results * US Arterial Duplex Lower Extremity Bilateral (03/19/2022 3:43 PM CDT) Anatomical Region Laterality Modality Vascular Bilateral Ultrasound 03/19/2022 2:49 PM CDT Narrative 03/20/2022 11:52 AM CDT [facility] - Department of Vascular Surgery, Vascular Laboratory [address] [place] [address] [place] Lower Extremity Arterial Duplex Report Patient Name: TOBY HILL : 1950 Study Date: 03/19/2022 2:49:09 PM Gender: M Tech: TT Location: [facility] Ref.Provider: AGGIE VILLAGRAN Quality: Adequate Order Provider: AGGIE VILLAGRAN Procedures: Arterial Report: Bilateral Lower Extremity Arterial Duplex Exam. Indications: Atherosclerosis of [place] Arteries of Extremities with Intermittent Cladication, Bilateral Leg. Measurements: Right Lower ? Left Lower ? Measurement ? Value ?Units ?Measurement ? Value ?Units ? Rt SAW RUNNER Dst PSV ?180 ?cm/s ? Lt SAW RUNNER Dst PSV ?273 ?cm/s ? Rt Profunda [...] ? Left Lower ? - Findings: Performing Computing Machine Operator: Garret Talamantes RVT. Right Common Femoral: The [...] Duplex imaging of the bilateral lower extremity lummi arteries reveals patent vessels with no flow [...] performed. Electronically Signed By: Sourav Canada MD [facility] 2022-03-20 11:52:50 CDT CC: CC: Procedure Note Sourav Canada MD - 03/20/2022 [facility] - Department of Vascular Surgery,Vascular Laboratory [address] [place] [address] [place] Lower Extremity Arterial Duplex Report Patient Name: TOBY HILLPatient ID: [id number] : [id number] Date: 03/19/2022 2:49:09 PM Gender: MAccession #: [id number] Tech: TTLocation: [facility] Ref.Provider: Tonia VILLAGRANality: Adequate Order Provider: AGGIE VILLAGRAN Procedures: Arterial Report: Bilateral Lower Extremity Arterial Duplex Exam. Indications: Atherosclerosis of [place] Arteries of Extremities with IntermittentCladication, Bilateral Leg. Measurements: Right Lower Left Lower Measurement Value Units MeasurementValue Units Rt SAW RUNNER Dst PSV 180 cm/s Lt SAW RUNNER Dst OYO357 cm/s Rt Profunda Prx PSV 58 cm/s Lt Profunda Prx PSV86 cm/s Rt Superficial Femoral Prx PSV 68 cm/s Lt Superficial FemoralPrx PSV 101 cm/s Rt Superficial Femoral Mid PSV 97 cm/s Lt Superficial FemoralMid PSV 64 cm/s Rt Superficial Femoral Dst PSV 115 cm/s Lt Superficial FemoralDst PSV 90 cm/s Rt Popliteal Artery 66 cm/s Lt Popliteal Rcoyus878 cm/s Rt Post Tibial Mid PSV 34 cm/s Lt Post Tibial Mid PSV69 cm/s Rt Ant Tibial Mid PSV 47 cm/s Lt Ant Tibial Mid PSV64 cm/s Rt Peroneal Mid PSV 39 cm/s Lt Peroneal Mid PSV50 cm/s Measurement Value Units MeasurementValue Units Right Lower Left Lower - Findings: Performing Computing Machine Operator: Garret Talamantes RVT. Right Common Femoral: The [...] Duplex imaging of the bilateral lower extremity lummi arteries revealspatent vessels with no flow limiting [...] performed. Electronically Signed By: Sourav Canada MD [facility] 2022-03-20 11:52:50 CDT CC: CC: us Aggie Villagran CYTOTECHNOLOGIST IMG US PROCEDURES Final Result * US SULEMA (03/19/2022 3:43 PM CDT) Anatomical Region Laterality Modality Vascular N/A Ultrasound 03/19/2022 2:09 PM CDT Narrative 03/20/2022 11:53 AM CDT [facility] - Department of Vascular Surgery, Vascular Laboratory [address] [place] [address] Lower Extremity Arterial Doppler Report Patient Name: TOBY HILL : 1950 Study Date: 03/19/2022 2:09:00 PM Gender: M Tech: Garret Talamantes [facility] Location: [facility] Ref.Provider: AGGIE VILLAGRAN Quality: Adequate Order Provider: AGGIE VILLAGRAN Procedures: Arterial Report: Ankle - Brachial Index Doppler exam. Indications: Atherosclerosis of [place] Arteries of Extremities with Intermittent Claudication, Bilateral Leg. Measurements: Right - ?Left - ? Measurement ?Value ?Units ?Measurement ?Value ?Units ? Rt Brachial Pressure ? 171 ?mmHg ? Lt Brachial Pressure ? 167 ?mmHg ? Rt INTERLACER Pressure ?112 ?mmHg ? Lt INTERLACER Pressure ?155 ?mmHg ? Rt DPA Pressure [...] - ?Left - ? - Findings: Performing Computing Machine Operator: Garret Talamantes RVT. Right Posterior Tibial Artery [...] performed. Electronically Signed By: Sourav Canada MD [facility] 2022-03-20 11:53:06 CDT CC: CC: Procedure Note Sourav Canada MD - 03/20/2022 [facility] - Department of Vascular Surgery,Vascular Laboratory [address] [place] [address] Lower Extremity Arterial Doppler Report Patient Name: TOBY HILLPatient ID: [id number] : [id number] Date: 03/19/2022 2:09:00 PM Gender: MAccession #: [id number] Tech: Garret Talamantes RVTLocation: [facility] Ref.Provider: AGGIE VILLAGRANQuality: Adequate Order Provider: AGGIE VILLAGRAN Procedures: Arterial Report: Ankle - Brachial Index Doppler exam. Indications: Atherosclerosis of [place] Arteries of Extremities with IntermittentClaudication, Bilateral Leg. Measurements: Right - Left - Measurement Value Units Measurement ValueUnits Rt Brachial Pressure 171 mmHg Lt Brachial Pressure 167mmHg Rt INTERLACER Pressure 112 mmHg Lt INTERLACER Pressure 155mmHg Rt DPA Pressure 115 mmHg Lt DPA Pressure 149mmHg Rt 1st Digit Pressure 102 mmHg Lt 1st Digit Pressure 119mmHg Rt PT SULEMA Resting 0.65 Lt PT SULEMA Resting 0.91 Rt AT SULEMA Resting 0.67 Lt AT SULEMA Resting 0.87 Rt Digit/Arm Index 0.6 Lt Digit/Arm Index 0.7 Measurement Value Units Measurement ValueUnits Right - Left - - Findings: Performing Computing Machine Operator: Garret Talamantes RVT. Right Posterior Tibial Artery [...] performed. 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
--- OUTSIDE RECORDS SUMMARY | 2024-09-12 15:41 | XMS_ITS | Encounter Summary ---
Author Organization [facility] Address [address] [address] Care Team Providers Care Car Clerk Pullman Name Role Phone Ross Espinosa MD Primary Care Provider [phone] Reason for Visit * Cardiology (Routine) - Closed Specialty Diagnoses / Procedures Referred By Contac t Referred To Contact Diagnoses History of complete AV block Pacemaker Procedures DEVICE CHECK - REMOTE Josiah Lay MD [address] [place] [address] Phone: tel: fax: [facility] Referral ID Status Reason Start Date Expiration Date Visits Re quested Visits Authorized [id number] Closed 06/04/2021 07/04/2022 1 1 Encounter Details Date Type Department Care Team (Latest Contact Info) Description 02/17/2022 9:00 AM CDT Ancillary Procedure [facility] Cardiology [address] [place] [phone] History of complete AV block; Pacemaker Social History Tobacco Use Types Packs/Day Years Used Date Smoking Tobacco: Former Cigarettes Q uit: 08/22/2009 Smokeless Tobacco: Never Sex and Gender Information Value Date Recorded Sex Assigned at Not on file Legal Sex Male 1:43 PM CDT Gender Identity Male 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 Dx; Second Degree AVB, Symptomatic Bradycardia. DOI 05/02/2019-Dr Zenia Good ([place]). [facility]link remote. ?? Routine Pacemaker remote. Normal device function. ?? Battery function-2,99V, 7.7 years remaining battery life to HERMELINDO. Appropriate lead measurements. ?? Presenting rhythm-ASVP. AP-7%, CHILD CARE NURSE-100%. ?? No Atrial high rate episodes noted. 1 Ventricular high rate episode noted on 12/08/2021, iegm NSVT, 8 beat duration, 226 bpm. ?? Medications; Xarelto, Plavix, Coreg. See scanned report. ?? Office pacemaker f/u 09/13/2022. [facility]link remote f/u 05/19/2022. us Josiah Lay MD [facility] CARDIAC SERVICES PROCEDURES F inal Result documented in this encounter Visit Diagnoses Diagnosis History of complete AV block Pacemaker Cardiac pacemaker in situ documented in this encounter Care Teams Car Clerk Pullman Relationship Specialty Start Date End Date Ross Espinosa MD [address] [place] [address] PCP - General 06/11/21 03/02/22 documented as of this encounter
--- OUTSIDE RECORDS SUMMARY | 2024-09-12 15:41 | XMS_ITS | Encounter Summary ---
Author Organization [facility] Address [address] [address] Care Team Providers Care Forest Nursery Worker Name Role Phone Ross Espinosa MD Primary Care Provider [phone] [phone] Reason for Referral * Cardiology (Routine) - Closed Specialty Diagnoses / Procedures [facility] Referred To Contact Diagnoses History of complete AV block Procedures DEVICE CHECK - REMOTE Josiah Lay MD [address] [address] Phone: tel: fax: [facility] Referral ID Status Reason Start Date Expiration Date Visits Re quested Visits Authorized [id number] Closed 02/17/2022 11/21/2023 1 1 * Cardiology (Routine) - Closed Specialty Diagnoses / Procedures [facility] Referred To Contact Diagnoses History of complete AV block Procedures DEVICE CHECK - REMOTE Josiah Lay MD [address] [address] Phone: tel: fax: [facility] Medical [facility] Referral ID Status Reason Start Date Expiration Date Visits Re quested Visits Authorized [id number] Closed 02/17/2022 08/19/2023 1 1 * Cardiology (Routine) - Closed Specialty Diagnoses / Procedures Referred By [facility] t Referred To Contact Diagnoses History of complete AV block Procedures DEVICE CHECK - REMOTE Josiah Lay MD [address] [facility] [address] [place] [address] Phone: tel: fax: [facility] Referral ID Status Reason Start Date Expiration Date Visits Re quested Visits Authorized [id number] Closed 02/17/2022 08/19/2023 1 1 Encounter Details Date Type Department Care Team (Late st Contact Info) Description 02/17/2022 Orders Only [facility] Medical [facility] Cardiology [address] 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 Dx; Second Degree AVB, Symptomatic Bradycardia. DOI 05/02/2019-Dr Zenia Good ([place]). [facility] remote. Routine DDDR Pacemaker Remote. Transmission attached. Battery status: 2.96 V , 4.6 years remaining battery life to HERMELINDO. Stable lead impedances, pacing and sensing thresholds. Presenting rhythm: /ACCOUNTING SUPPORT SPECIALIST AP- 3.9%, ACCOUNTING SUPPORT SPECIALIST- 99.9% No AT/AF episodes noted. AF Retsof <0.1%. No Ventricular high rate episodes detected. Medications: Plavix, carvedilol See scanned report. Office pacemaker follow up: 01/11/24 [facility] remote f/u 02/15/24. Kobe Soto RN Result [facility] Josiah Lay MD CV CARDIAC SERVICES PROCEDURES F inal Result * DEVICE CHECK - REMOTE (08/04/2023 3:43 PM PRODUCT MANAGEMENT SPECIALIST) Anatomical Region Laterality Modality Other Narrative 09/20/2023 12:11 PM PRODUCT MANAGEMENT SPECIALIST Medtronic Goodenow Dual Pacemaker. Dx; Second Degree AVB, Symptomatic Bradycardia. DOI 05/02/2019-Dr Zenia Good ([place]). [facility]link remote. Routine Pacemaker remote. Normal device function. Battery function-2.96V, 5.2 years remaining battery life to HERMELINDO. Appropriate lead measurements. Presenting rhythm-ASVP. AP-5.7%, ACCOUNTING SUPPORT SPECIALIST-99.9%. No Atrial high rate episodes noted. No Ventricular high rate episodes noted. ?? Medications; Plavix, Coreg. See scanned report. [facility] remote f/u 11/09/2023. Samia José RN Result [facility] Josiah Lay MD CV CARDIAC SERVICES PROCEDURES F inal Result * DEVICE CHECK - REMOTE (03/22/2023 10:00 AM CDT) Anatomical Region Laterality Modality Other Narrative 03/30/2023 10:06 AM CDT Medtronic Eugenie Dual Pacemaker. Dx; Second Degree AVB, Symptomatic Bradycardia. DOI 05/02/2019-Dr Zenia Good ([place]). [facility] remote. Routine Pacemaker remote. Normal device function. Battery function-2.96V, 5.0 years remaining battery life to HERMELINDO. Appropriate lead measurements. Presenting [id number]-PE. AP-20%, ACCOUNTING SUPPORT SPECIALIST->99%. No Atrial high rate episodes noted. No Ventricular high rate episodes noted. ?? Medications; Xarelto, Plavix, Coreg, Norvasc. See scanned report. Office pacemaker f/u and ROV with Dr Lay 05/04/2023. Samia José, RN Josiah Lay MD CV CARDIAC SERVICES PROCEDURES F inal Result documented in this encounter Visit Diagnoses Diagnosis History of complete AV block- Primary Cardiac pacemaker in situ [Z95.0 (ICD-10-CM)]- Primary Cardiac pacemaker in situ History of complete AV block Cardiac pacemaker in situ [Z95.0]- Primary Cardiac pacemaker in situ History of complete AV block Cardiac pacemaker in situ- Primary History of complete AV block documented in this encounter Care Teams Forest Nursery Worker Relationship Specialty Start Date End Date Ross Espinosa MD [address] [place] [address] PCP - General 06/11/21 03/02/22 documented as of this encounter
--- OUTSIDE RECORDS SUMMARY | 2024-09-12 15:41 | XMS_ITS | Encounter Summary ---
Author Organization [facility] Address [address] [place] [address] Care Team Providers Care Clinical Nurse Reviewer Name Role Phone Ross Espinosa MD Primary Care Provider [phone] Encounter Details Date Type Department Care Team (Late st Contact Info) Description 10/21/2021 Telephone [facility] Cardiology [address] [facility] [address] [place] [address] Josiah Lay MD [address] [id number] Social History Tobacco Use Types Packs/Day Years Used Date Smoking Tobacco: Former Cigarettes Q uit: 08/22/2009 Smokeless Tobacco: Never Sex and Gender Information Value Date Recorded Sex Assigned at Not on file Legal Sex Male 1:43 PM CDT Gender Identity Male 08/12/2022 2:14 PM 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 Called pharmacy and notified them of the change-new rx sent to pharm. BURSEMENT SPEC * Telephone Encounter - Josiah Lay MD - 10/22/2021 11:10 AM CST Change omeprazole to pantoprazole 40 mg p.o. q.a.m. BURSEMENT SPEC * Telephone Encounter - Martha Lucia RN - 10/22/2021 9:18 AM REIMBURSEMENT SPEC Pharmacy called to notify us that per their records pt is also taking omeprazole that is prescribedby another provider and it interferes with new medication prescribed by [facility] cilostazol. Will forward to [facility]. Please advise, thank you! BURSEMENT SPEC * Telephone Encounter - Tiki Grande - 10/21/2021 12:11 PM CST [facility] Pharmacy requesting a call in regard to a prescription sent today by [facility], states drug interaction.Please advise.Thank you Contact:[phone] BURSEMENT SPEC documented in this encounter Plan of Treatment Not on file documented as of this encounter Visit Diagnoses Not on filedocumented in this encounter Care Teams Clinical Nurse Reviewer Relationship Specialty Start Date End Date Ross Espinosa MD [address] [place] [address] PCP - General 06/11/21 03/02/22 documented as of this encounter
--- OUTSIDE RECORDS SUMMARY | 2024-09-12 15:41 | XMS_ITS | Encounter Summary ---
Author Organization [facility] Address [address] [place] [address] Phone Care Team Providers Care Chaplain Resident Name Role Phone Ross Espinosa MD Primary Care Provider [phone] [phone] Reason for Visit * Auth/Cert Specialty Diagnoses / Procedures Referred By Jovany carver Referred To Contact Referral ID Status Reason Start Date Expiration Date Visits Re quested Visits Authorized [id number] 1 1 Encounter Details Date Type Department Care Team (Late st Contact Info) Description 08/04/2021 Home Care Visit [facility] [address] [address] [address] [place] [address] Duglas Gonzales, [facility] SWITCHBOARD TROUBLESHOOTER DISCIPLINE DISCHARGE Social History Tobacco Use Types Packs/Day Years Used Date Smoking Tobacco: Former Cigarettes Q uit: 08/22/2009 Smokeless Tobacco: Never Sex and Gender Information Value Date Recorded Sex Assigned at Not on file Legal Sex Male 1:43 PM CDT Gender Identity Male 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 07/01/2021 Resolved on 08/04/2021 1 goal linked to scheduled/documen darrion intervention 1 goal intervention scheduled/documen darrion in this visit SWITCHBOARD TROUBLESHOOTER Emotional Support Needs Disciplines: Social Work Deficit related to emotional support. 07/01/2021 Resolved on 08/04/2021 1 goal linked to scheduled/documen darrion intervention 1 goal intervention scheduled/documen darrion in this visit Goals Goal Associated Problem Outcome Goal Met? Visit Notes Understanding of available resources Description: Patient/family/caregiver will voice understanding of available resources by .cataract lens generator SWITCHBOARD TROUBLESHOOTER Resource Needs Completed Yes Increase emotional support Description: Patient/family is able to explore reactions to and verbalize acceptance of impact of illness by SWITCHBOARD TROUBLESHOOTER discharge SWITCHBOARD TROUBLESHOOTER Emotional Support Needs Completed Yes Interventions Intervention Associated Problem/Goal Status Variance Visit Notes Provide assistance with identifying appropriate community resources Description: Provide assistance with identifying appropriate community resources Problem:SWITCHBOARD TROUBLESHOOTER Resource Needs Goal:Understanding of available resources SWITCHBOARD TROUBLESHOOTER discharge summary SWITCHBOARD TROUBLESHOOTER did home visit with pt and family on: 07/01/21 PRIORITIES/GOALS: finalize divorce, move into place near sisters STRESSORS: the divorce, need to get stronger, ambulate in dependently ASSETS: supportive family, financial stability ORIENTATION: A&OX: 4 MOOD/AFFECT/COPING SKILLS: denies mood issues CAREGIVER/SUPPORT: [place], filed for [place] in [place]. Sister sometimes assists with getting out of bed, assists with IV, prep some meals PHYSICAL STATUS (ADLs/IADLs, sleep/nutrition): using 2WW, difficulty with stairs. Using O2 PRN RELATIONSHIPS/BACKGROUN D: lives with sister, other sister lives around the corner. Pt getting . 3 grown dtrs, 2 in [place] and 1 in [place]. X2, together 40-years. 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 SUBSTANCE USE: Patient denies ETOH, tobacco and illicit drug use. Quit smoking tobacco cigarettes August 2011 PAIN: rates pain 10/29 surgical site/catheter SAFETY CONCERNS (HX/CURRENTSI/SIB): no grab bars in shower RESOURCES AVAILABLE (ERB, HCPOA, caregiver, transportation): None PATIENT REQUEST: HCPOA SWITCHBOARD TROUBLESHOOTER INTERVENTIONS: SWITCHBOARD TROUBLESHOOTER made referral to [facility] Counseling program provided by [facility] SWITCHBOARD TROUBLESHOOTER provided HCPOA document SWITCHBOARD TROUBLESHOOTER provided ERB resource SWITCHBOARD TROUBLESHOOTER phoned [employer] to request an application be sent to pt Provide Emotional Support Description: Provide emotional support Problem:SWITCHBOARD TROUBLESHOOTER Emotional Support Needs Goal:Increase emotional support SWITCHBOARD TROUBLESHOOTER provided emotional support and encouragement to patient through conversation, active listening and supportive presence documented in this encounter Home Health Visit - Actions and Narratives Actions SWITCHBOARD TROUBLESHOOTER discharge summary SWITCHBOARD TROUBLESHOOTER did home visit with pt and family on: 07/01/21 PRIORITIES/GOALS: finalize divorce, move into place near sisters STRESSORS: the divorce, need to get stronger, ambulate in dependently ASSETS: supportive family, financial stability ORIENTATION: A&OX: 4 MOOD/AFFECT/COPING SKILLS: denies mood issues CAREGIVER/[place]: [place], filed for [place] in [place]. Sister sometimes assists with getting out of bed, assists with IV, prep some meals PHYSICAL STATUS (ADLs/IADLs, sleep/nutrition): using 2WW, difficulty with stairs. Using O2 PRN RELATIONSHIPS/BACKGROUND: lives with sister, other sister lives around the corner. Pt getting . 3 grown dtrs, 2 in [place] and 1 in [place]. X2, together 40- years. 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 SUBSTANCE USE: Patient denies ETOH, tobacco and illicit drug use. Quit smoking tobacco cigarettes August 2011 PAIN: rates pain 10/29 surgical site/catheter SAFETY CONCERNS (HX/CURRENTSI/SIB): no grab bars in shower RESOURCES AVAILABLE (ERB, HCPOA, caregiver, transportation): None PATIENT REQUEST: HCPOA SWITCHBOARD TROUBLESHOOTER INTERVENTIONS: SWITCHBOARD TROUBLESHOOTER made referral to [facility] Counseling program provided by [facility] SWITCHBOARD TROUBLESHOOTER provided HCPOA document SWITCHBOARD TROUBLESHOOTER provided ERB resource SWITCHBOARD TROUBLESHOOTER phoned [employer] to request an application be sent to pt SWITCHBOARD TROUBLESHOOTER provided emotional support and encouragement to patient through conversation, active listening and supportive presence. Patient verbalized understanding of all resources discussed. Patient had no other needs or concerns. SWITCHBOARD TROUBLESHOOTER coordinated care with home care team. Since patient no longer requires SWITCHBOARD TROUBLESHOOTER services, SWITCHBOARD TROUBLESHOOTER is discharging effective 08/04/21 documented in this encounter Care Teams Chaplain Resident Relationship Specialty Start Date End Date Ross Espinosa MD [address] [place] [address] PCP - General 06/11/21 03/02/22 documented as of this encounter
--- OUTSIDE RECORDS SUMMARY | 2024-09-12 15:41 | XMS_ITS | Encounter Summary ---
Author Organization [facility] Address [address] [place] [address] Care Team Providers Care Program Host Name Role Phone Ross Espinosa MD Primary Care Provider [phone] [phone] Reason for Visit * Reason Comments Claudication 2 month fu Encounter Details Date Type Department Care Team (Late st Contact Info) Description 12/30/2021 11:15 AM CDT Office Visit [facility] Cardiology [address] [facility] [address] [facility] [address] [place] [id number] Josiah Lay MD [address] [id number] Claudication (CMS/HCC) (HCC) (Primary Dx); PAD (peripheral artery disease) (CMS/HCC) (HCC); History of complete AV block; Pacemaker; Essential hypertension; Mild aortic stenosis; Chronic respiratory failure with hypoxia, on home O2 therapy (CMS/HCC) (HCC); Bilateral carotid artery stenosis; Stage 3b chronic kidney disease (HCC) Social History Tobacco Use Types Packs/Day Years Used Date Smoking Tobacco: Former Cigarettes Q uit: 08/22/2009 Smokeless Tobacco: Never Sex and Gender Information Value Date Recorded Sex Assigned at Not on file Legal Sex Male 1:43 PM CDT Gender Identity Male 08/12/2022 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 Sexual Orientation Not on file documented as of this encounter Last Filed Vital Signs Vital Sign Reading Time Taken Comments Blood Pressure 128/78 12/30/2021 11:10 AM CDT Pulse 90 12/30/2021 11:10 AM CDT Temperature - - Respiratory Rate - - Oxygen Saturation 96% 12/30/2021 11:10 AM CDT 3 liters o2 Inhaled Oxygen Concentration - - Weight 89.4 kg (197 lb) 12/30/2021 11:10 AM CDT Height 172.7 cm (5' 8) 12/30/2021 11:10 AM CDT Body Mass Index 29.95 12/30/2021 11:10 AM CDT documented in this encounter Ordered Prescriptions Prescription Sig Dispense Quantity Refills Last Filled Start Date End Date rivaroxaban (XARELTO) 2.5 mg tablet Take 1 tablet (2.5 mg total) by mouth 2 (two) times a day 60 tablet 12/30/2021 03/03/2022 documented in this encounter Progress Notes * Josiah Lay MD - 12/30/2021 11:15 AM CDT [facility] CARDIOLOGY 12/30/2021 CHIEF COMPLAINT Chief Complaint Patient presents with ??? Claudication 2 month fu HPI Freddy Hill is a 71 y.o. [...] to local area in October 2020 from [place], [place]. Patient has extensive cardiovascular history. His [...] placement. He denies any history of clinical AR, angina. At present, patient has dyspnea on [...] routine follow-up visit. He was hospitalized at [facility] in June 2021 with worsening [...] medical regimen. Patient is on home oxygen. 12/30/[id number] visit today, patient reports worsening discomfort in [...] chest pain. No palpitation, dizziness or syncope. MEDICAL HISTORY he has a past medical history of Anemia, Arthritis, Asthma, AV block, Carotid stenosis, CKD (chronic kidney disease) stage 3, GFR 30-59 ml/min ([facility]), Claudication ([facility]/HCC) ([facility]), COPD (chronic obstructive pulmonary disease) ([facility]/HCC) ([facility]), COVID-19 (05/2020), Empyema (CMS/HCC) ([facility]) (05/2020), GERD (gastroesophageal reflux disease), Hyperkalemia, Hypertension, PAD (peripheral artery disease) ([facility]/HCC) ([facility]), Pneumonia (2018), and Sleep apnea. [...] (N/A, 06/19/2021). he Allergies Allergen Reactions ??? Cephalexin Stomach upset and Vomiting Current [...] INHALATION ROUTE NEEDED FOR 30 DAYS. ??? atorvastatin (LIPITOR) 40 mg tablet Take [...] every 6 (six) hours as needed ??? rivaroxaban (XARELTO) 2.5 mg tablet Take [...] potassium 4.6, creatinine 1.91, GFR 35;. 03/24/2021 [facility] EKG-sinus rhythm, left bundle-branch block. 05/13/2021 Carotid duplex-less than 50% stenosis bilateral ICA. 05/27/2021 [facility] SULEMA/Doppler-right SULEMA 0.66, right TBI 0.35. Arterial waveforms are biphasic with brisk systolic upstroke throughout. Left SULEMA 0.81, left SULEMA 0.64. Arterial waveforms are biphasic with brisk systolic upstroke throughout. 05/27/2021 [facility] Venous duplex-no DVT. 07/17/2021 [facility] Echo-Normal left ventricular size. Definity [...] Aortic cusps appear mildly sclerotic. 11/24/2021-Dr. Good PHYSICAL EXAM Vitals BP 128/78 (BP Location: Left arm, Patient Position: Sitting) Pulse 90 Ht 172.7 cm (5' 8) Wt 89.4 kg (197 lb) SpO2 96% BMI 29.95 kg/m?? General appearance - alert, no distress, [...] and all orders for this visit: Claudication ([facility]) ([facility]) (Primary) PAD (peripheral artery disease) ([facility]) ([facility]) History of complete AV block Pacemaker Essential hypertension Mild aortic stenosis Chronic respiratory failure with hypoxia, on home O2 therapy ([facility]) ([facility]) Bilateral carotid artery stenosis Stage 3b chronic kidney disease ([facility]) Other orders - rivaroxaban (XARELTO) 2.5 mg tablet; Take 1 tablet (2.5 mg total) by [...] history of COVID-19 infection. - patient has worsening bilateral lower extremity claudication. He has been on optimal medical treatment including antiplatelet therapy, anticoagulation and was recently initiated on cilostazol. Patient is eager to proceed with peripheral angiogram with an eye towards intervention. He gives history of left lower extremity stenting. Intervention report is not available. He reports that he does have a stent card and was advised to bring it on the day of the procedure. Patient has CKD. He will beprehydrated with normal saline prior to the procedure. He understands that he is at high risk for contrast induced nephropathy. Patient will be referred to Nephrology. - continue clopidogrel. Change apixaban to rivaroxaban 2.5 mg p.o. b.i.d.. May discontinue cilostazol. - continue statin, current LDL is 60. - patient has CKD. Information was provided to him to establish a cloth examiner hand. -patient updated about recent echocardiogram which showed [...] Low-salt diet counseling was done. -periodic pacemaker interrogations.- -Counseling was done for heart healthy diet, aerobic exercise at least 5 times a week, Medication compliance. -follow-up in about 6-8 weeks or sooner if needed after peripheral angiogram and likely intervention. Josiah Lay MD 12/30/21 Voice recognition software was used to complete this document, therefore, shank rander variances may occur. documented in this encounter Plan of Treatment Not on file documented as of this encounter Visit Diagnoses Diagnosis Claudication (HCC)- Primary Unspecified peripheral vascular disease PAD (peripheral artery disease) (HCC) Unspecified peripheral vascular disease History of complete AV block Pacemaker Cardiac pacemaker in situ Essential hypertension Unspecified essential hypertension Mild aortic stenosis Aortic valve disorders Chronic respiratory failure with hypoxia, on home O2 therapy (CMS/HCC) (HCC) Bilateral carotid artery stenosis Occlusion and stenosis of carotid artery without mention of cerebral infarction Stage 3b chronic kidney disease ([facility]) documented in this encounter Discontinued Medications Medication Sig Discontinue Reason Start Date End Da te apixaban (ELIQUIS) 2.5 mg tablet Take 2.5 mg by mouth 2 (two) times a day 12/30/2021 cilostazoL (PLETAL) 100 mg tabletIndications:Intermi ttent Claudication Take 1 tablet (100 mg total) by mouth 2 (two) times a day 10/21/2021 12/30/2021 documented as of this encounter Historical Medications * This list may reflect changes made after this encounter. fluticasone propion-salmetero L (ADVAIR DISKUS) 500-50 mcg/dose diskus inhaler Inhale 1 puff 2 (two) times a day 10/06/2021 01/26/2024 added in this encounter Care Teams Program Host Relationship Specialty Start Date End Date Ross Espinosa MD [address] [place] [address] PCP - General 06/11/21 03/02/22 documented as of this encounter
--- OUTSIDE RECORDS SUMMARY | 2024-09-12 15:41 | XMS_ITS | Encounter Summary ---
Author Organization [facility] Healthcare Address [address] [place] [address] Care Team Providers Care Attendant Lodging Facilities Name Role Phone Ross Espinosa MD Primary Care Provider [phone] Encounter Details Date Type Department Care Team (Late st Contact Info) Description 03/03/2022 10:00 AM CDT - 03/03/2022 11:30 AM CDT Surgery [facility] Cardiac Catheterization Lab [address] [place] [address] Josiah Lay MD [facility] [place] [id number] PERIPHERAL ANGIOGRAPHY Surgery Details Date/Time Status Location OR Service Patient Class Case Class Case Type Trauma Case? 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 Sexual Orientation Not on file documented as of this encounter Last Filed Vital Signs Vital Sign Reading Time Taken Comments Blood Pressure 166/88 03/03/2022 8:36 AM CDT Pulse 71 03/03/2022 8:36 AM CDT Temperature 36.7 ??C (98 ??F) 03/03/2022 8:36 AM CDT Respiratory Rate 18 03/03/2022 8:36 AM CDT Oxygen Saturation 94% 03/03/2022 8:36 AM CDT Inhaled Oxygen Concentration - - Weight 91.4 kg (201 lb 8 oz) 03/03/2022 8:36 AM CDT Height 172.7 cm (5' 8) 03/03/2022 8:36 AM CDT Body Mass Index 30.64 03/03/2022 8:36 AM CDT documented in this encounter Discharge Instructions * Discharge Instructions* Sandra Rocha RN - 03/03/2022 1:36 PM CDT Moderate Sedation WHAT YOU NEED [...] remember to ask them during your visits. Peripheral Angiogram Discharge Instructions Activity: -No heavy lifting (over 10 pounds) for 1 week -No driving for 2 days AFTER procedure -No strenuous activity with affected leg for one week (i.e. Jogging, swimming, running, raking, shoveling, or mowing lawn) -No exercising or excessive use of stairs for 1 week -Avoid alcohol for 24 hours Puncture Site: -Remove dressing (anytime) next day. -Wash with soap and water daily in shower (to prevent infection, a shower is preferred to a tub bath for at least a week). -Do not apply any creams or lotions to puncture site. What to watch for: -Increased bruising -Swelling or hardening around site (hematoma-bleeding underneath the skin, call 911) -Temperature greater than 100*F (call doctor's office) -Redness, drainage, or foul odor at puncture site (?sign of infection--call doctor's office) -Pain that will not go away (check puncture site, monitor for hematoma, O.T.C. pain medication) -Bleeding (arterial puncture--call 911) You may develop scar tissue at the puncture site. This normal and will feel like a small lump underthe skin. You may feel this bump for some time. If any of the above occur or you have any questions contact your Licensed Dispensing Optician and follow up with your Primary Care Physician as instructed. Doctor office phone number: [phone] documented in this encounter Medications at Time [...] (six) hours as needed 04/08/2021 atorvastatin (LIPITOR) 40 mg tablet Take 40 mg by mouth daily 04/14/2021 2 cephalexin (KEFLEX) 500 mg capsule TAKE 1 [...] 04/21/2021 5 documented as of this encounter Ordered Prescriptions Prescription Sig Dispense Quantity Refills Last Filled Start Date End Date rivaroxaban (XARELTO) 2.5 mg tablet Take 1 tablet (2.5 mg total) by mouth 2 (two) times a day 60 tablet 03/03/2022 07/13/2023 documented in this encounter Discharge Disposition Disposition Code Departure Means Destination Discharge to hospice / home documented in this encounter H&P Notes * Josiah Lay MD - 03/03/2022 10:24 AM CDT General H&P Subjective Patient is a 71 y.o. male with chief complaint of leg pain. HPI: 71 y.o. male with hypertension, history of AV block status post Medtronic pacemaker placement in June 2020, peripheral artery disease involving left lower extremity and carotid arteries, status post left lower extremity intervention; status post right carotid enterectomy; COPD/chronic respiratory failure on home oxygen, history of COVID-19 infection. Patient has been experiencing worsening bilateral lower extremity claudication. He has been on optimal medical treatment including antiplatelet therapy, cilostazol, and anticoagulation. After discussing benefits, risks and alternatives, patient was willing to proceed with peripheral angiogram with an eye towards intervention. Patient has CKD, and is at relatively increased risk of contrast induced nephropathy. Patient is aware and wants to proceed. Past Medical History: Diagnosis Date ??? Anemia ??? Arthritis ??? Asthma ??? AV block Jun 2020 PM insertion ??? Carotid stenosis s/p right CEA ??? CKD (chronic kidney disease) stage 3, GFR 30-59 ml/min ([facility]) ??? Claudication ([facility] ([facility]) ??? COPD (chronic obstructive pulmonary disease) ([facility]) ([facility]) ??? COVID-19 05/2020 hospitalization 3 days ??? Empyema ([facility]) ([facility]) 05/2020 ??? GERD (gastroesophageal reflux disease) ??? Hyperkalemia ??? Hypertension ??? PAD (peripheral artery disease) ([facility]) ([facility]) ??? Pneumonia 2018 ??? Sleep apnea Past Surgical History: Procedure Laterality Date ??? CAROTID ENARTERECTOMYY Right 2013 ? ? CENTRAL LINE PLACEMENT > 5 YEARS N/A 06/19/2021 ??? COLONOSCOPY ??? HERNIA REPAIR 2016 ventral ??? HIP ARTHROPLASTY Bilateral left 2009, right 2002 ??? INSERT / REPLACE / REMOVE PACEMAKER 06/2020 Medtronic dula lead PM ??? OTHER SURGICAL HISTORY 2020 surgical and endovascular intervention LLE-3 stents ??? TONSILLECTOMY Medications Prior to Admission Medication Sig Dispense Refill Last Dose ??? albuterol 2.5 mg /3 mL (0.083 %) nebulizer solution INHALE 3 ML 3 TIMES A DAY BY NEBULIZATION ROUTE FOR 30 DAYS. 03/02/2022 at Unknown time ??? albuterol HFA (PROVENTIL HFA,VENTOLIN HFA,PROAIR HFA) 90 mcg/actuation inhaler INHALE 2 PUFFS EVERY 4 HOURS BY INHALATION ROUTE NEEDED FOR 30 DAYS. 03/02/2022 at Unknown time ??? atorvastatin (LIPITOR) 40 mg tablet Take 40 mg by mouth daily 03/02/2022 at Unknown time ??? carvediloL (COREG) 25 mg tablet Take 1.5 tablets by mouth 2 (two) times a day 03/03/2022 at Unknown time ??? cetirizine 10 mg capsule Take by mouth Past Week at Unknown time ??? doxepin (SINEquan) 25 mg capsule Take 25 mg by mouth nightly 03/02/2022 at Unknown time ??? fluticasone propion-salmeteroL (ADVAIR DISKUS) 500-50 mcg/dose diskus inhaler Inhale 1 puff 2 (two) times a day 03/02/2022 at Unknown time ??? gabapentin (NEURONTIN) 300 mg capsule Take 300 mg by mouth daily as needed 03/02/2022 at Unknowntime ??? oxygen Administer 3 L/min into each nostril as needed (hypoxia). Indications: trouble breathing03/02/2022 at Unknown time ??? pantoprazole DR (PROTONIX) 40 mg EC tablet Take 1 tablet (40 mg total) by mouth daily 30 [id number] 03/03/2022 at Unknown time ??? Spiriva Respimat 2.5 mcg/actuation inhaler INHALE 2 PUFFS BY MOUTH ONCE DAILY 03/02/2022 at Unknown time ??? tamsulosin (FLOMAX) 0.4 mg extended release capsule Take 2 capsules (0.8 mg total) by mouth daily with dinner 03/03/2022 at Unknown time ??? traMADoL (ULTRAM) 50 mg tablet Take 50 mg by mouth every 6 (six) hours as needed 03/02/2022 at Unknown time ??? acetaminophen 500 mg capsule Take 2 capsules (1,000 mg total) by mouth every 6 (six) hours 30 tablet Unknown at Unknown time ??? clopidogreL (PLAVIX) 75 mg tablet Take 75 mg by mouth daily 02/27/2022 ??? dupilumab (DUPIXENT) syringe Inject 300 mg under the skin every 14 (fourteen) days 02/17/2022 ??? furosemide (LASIX) 40 mg tablet Take 40 mg by mouth daily. Indications: per md advisement 02/24/2022 ??? melatonin 5 mg capsule Take by mouth More than a month at Unknown time ??? multivitamin capsule Take 1 capsule by mouth daily ??? potassium chloride ER (KLOR-CON) 10 mEq CR tablet Take 10 mEq by mouth daily. Indications: low amount of potassium in the blood 02/27/2022 ??? rivaroxaban (XARELTO) 2.5 mg tablet Take 1 tablet (2.5 mg total) by mouth 2 (two) times a day 60 tablet 11 02/27/2022 No Known Allergies Social History Tobacco Use ??? Smoking status: Former Smoker Quit date: 08/22/2009 Years since quittin.5 ??? Smokeless tobacco: Never Used Substance and Sexual Activity ??? Drug use: None ??? Sexual activity: None Alcohol Use: Not At Risk ??? Frequency of Alcohol Consumption: Never ??? Average Number of Drinks: Not on file ??? Frequency of Binge Drinking: Never Family History Problem Relation Age of Onset ??? Asthma Mother ??? Diabetes Mother ??? Hypertension Mother ??? Hypertension Father ??? Heart disease Father Review of Systems Objective Vitals: Arrival Vitals [03/03/22 0836] Temp 36.7 ??C (98 ??F) Pulse 71 Resp 18 BP 166/88 SpO2 94 % Temp src Oral Heart Rate Source Pulse Oximetry Patient Position BP Location FiO2 (%) 24hr Min/Max: Temp Min: 36.7 ??C (98 ??F) Max: 36.7 ??C (98 ??F) Pulse Min: 71 Max: 71 BP Min: 166/88 Max: 166/88 Resp Min: 18 Max: 18 SpO2 Min: 94 % Max: 94 % Most Recent : Vitals: 03/03/22 0836 BP: 166/88 Pulse: 71 Resp: 18 Temp: 36.7 ??C (98 ??F) SpO2: 94% No intake/output data recorded. No intake/output data recorded. Physical Exam General appearance - alert, no distress, oriented [...] dopplerable; bilateral posterior tibial pulses non dopplerable Lab/Radiology/Diagnostic Review: Assessment Active Problems: PVD (peripheral vascular disease) (CMS/HCC) (HCC) Pain in both lower extremities Plan peripheral angiogram plus minus intervention documented in this encounter Consult Notes * Mayelin Grubbs NP - 03/03/2022 1:24 PM CDTAssociated Order(s): IP CONSULT TO VASCULAR SURGERY Vascular Surgery H&P Freddy Hill 1950 Reason for Consult: PAD Requesting Provider: Dr. Josiah Lay Chief Complaint: bilateral lower extremity claudication HPI: Freddydenise Hill is 71 y.o. White male with PMHx of HTN, AV block s/p PPM, PAD s/p LLE intervention, carotid stenosis s/p right carotid endarterectomy, bilateral hip replacements, and COPD on home O2 2L at night who presented today for outpatient lower extremity angiogram. We were requested toconsult regarding further revascularization options. Patient reports having worsening, lifestyle-limiting bilateral lower extremity claudication, left worse than right. He states the pain is predominantly in his calves but he has also been noticing it in his thighs. He denies rest pain or tissue loss. He reports chronic numbness in his feet. He has been taking plavix, statin, and Eliquis without improvement. He was recently switched to low dose Xarelto but he has not started this medication yet. Angiogram found left ALEXSANDRA as aneurysmal with moderate stenosis, mild left EIA disease, moderate right EIA disease, high grade stenosis in the distal segment of the right BARMAN involving the origin of the profunda and SFA as well as mid SFA and popliteal artery with three vessel runoff. On the left, the BARMAN is widely patent with high-grade stenosis of the proximal SFA with mild instent stenosis in the mid-distal segment. There is three vessel runoff. [place] right carotid endarterectomy for asymptomatic carotid stenosis about 10-15 years ago. Less than 50% stenosis was seen in bilateral carotid arteries on carotid duplex in 05/2021. He has CKD with last creatinine at 1.75. He reports having a previous surgery for sleep apnea and does not use a CPAP anymore. He is s/p left thoracotomy for empyema in 05/2021. He is on 2L NC at night and PRN with activity. It depends on the day as to whether he needs it or not. Juxtarenal AA measuring 3.5x 3.[address] non-con from 06/2021 as well as ductus diverticulum/aneurysm seen on aortic arch . He quit smoking over 10 years ago. HOME MEDICATIONS : albuterol 2.5 mg /3 mL (0.083 %) nebulizer solution albuterol HFA (PROVENTIL HFA,VENTOLIN HFA,PROAIR HFA) 90 mcg/actuation inhaler atorvastatin (LIPITOR) 40 mg tablet carvediloL (COREG) 25 mg tablet cetirizine 10 mg capsule doxepin (SINEquan) 25 mg capsule fluticasone propion-salmeteroL (ADVAIR DISKUS) 500-50 mcg/dose diskus inhaler gabapentin (NEURONTIN) 300 mg capsule oxygen pantoprazole DR (PROTONIX) 40 mg EC tablet Spiriva Respimat 2.5 mcg/actuation inhaler tamsulosin (FLOMAX) 0.4 mg extended release capsule traMADoL (ULTRAM) 50 mg tablet acetaminophen 500 mg capsule clopidogreL (PLAVIX) 75 mg tablet dupilumab (DUPIXENT) syringe furosemide (LASIX) 40 mg tablet melatonin 5 mg capsule multivitamin capsule potassium chloride ER (KLOR-CON) 10 mEq CR tablet rivaroxaban (XARELTO) 2.5 mg tablet rivaroxaban (XARELTO) 2.5 mg tablet Current Facility-Administered Medications: ??? sodium chloride 0.9% infusion, 150 mL/hr, intravenous, Continuous, Last Rate: 150 mL/hr at 03/03/22 1250, 150 mL/hr at 03/03/22 1250 No Known Allergies Past Medical History: Diagnosis Date ??? Anemia ??? Arthritis ??? Asthma ??? AV block Jun 2020 PM insertion ??? Carotid stenosis s/p right CEA ??? CKD (chronic kidney disease) stage 3, GFR 30-59 ml/min ([facility]) ??? Claudication (CMS/HCC) ([facility]) ??? COPD (chronic obstructive pulmonary disease) (CMS/HCC) ([facility]) ??? COVID-19 05/2020 hospitalization 3 days ??? Empyema (CMS/HCC) ([facility]) 05/2020 ??? GERD (gastroesophageal reflux disease) ??? Hyperkalemia ??? Hypertension ??? PAD (peripheral artery disease) ([facility]) ([facility]) ??? Pneumonia 2018 ??? Sleep apnea Past Surgical History: Procedure Laterality Date ??? CAROTID ENARTERECTOMYY Right 2013 ? ? CENTRAL LINE PLACEMENT > 5 YEARS N/A 06/19/2021 ??? COLONOSCOPY ??? HERNIA REPAIR 2016 ventral ??? HIP ARTHROPLASTY Bilateral left 2009, right 2002 ??? INSERT / REPLACE / REMOVE PACEMAKER 06/2020 Medtronic dula lead PM ??? OTHER SURGICAL HISTORY 2020 surgical and endovascular intervention LLE-3 stents ??? TONSILLECTOMY Family History Problem Relation Age of Onset ??? Asthma Mother ??? Diabetes Mother ??? Hypertension Mother ??? Hypertension Father ??? Heart disease Father Social History Tobacco Use ??? Smoking status: Former Smoker Quit date: 08/22/2009 Years since quittin.5 ??? Smokeless tobacco: Never Used Substance and Sexual Activity ??? Drug use: None ??? Sexual activity: None Alcohol Use: Not At Risk ??? Frequency of Alcohol Consumption: Never ??? Average Number of Drinks: Not on file ??? Frequency of Binge Drinking: Never Review of Systems - All other systems reviewed and are negative except as listed below: Review of Systems Constitutional: Negative for fever. HENT: Negative. Eyes: Negative. Respiratory: Negative. Cardiovascular: Negative. Gastrointestinal: Negative. Genitourinary: Negative. Musculoskeletal: Positive for gait problem. Skin: Negative. Neurological: Positive for numbness. Psychiatric/Behavioral: Negative for agitation and behavioral problems. Vital Signs: Vitals: 03/03/22 1310 BP: 149/67 Pulse: 82 Resp: 112 Temp: 36.7 C SpO2: 93% Cardiac Rhythm: Ventricular paced (03/03/22 1315) Body surface area is 2.09 meters squared. No intake/output data recorded. Physical Exam HENT: Head: Normocephalic. Eyes: Extraocular Movements: Extraocular movements intact. Cardiovascular: Pulses: Radial pulses are 2+ on the right side and 2+ on the left side. Femoral pulses are 1+ on the right side and 2+ on the left side. Dorsalis pedis pulses are 1+ on the right side and 1+ on the left side. Posterior tibial pulses are detected w/ Doppler on the right side and detected w/ Doppler on the left side. Comments: Trace edema bilateral ankles Neurological: Mental Status: He is alert. Labs: Reviewed. Recent Labs Lab Units 02/26/22 1416 WBC Thousand/uL 8.5 HEMOGLOBIN g/dL 11.0* HEMATOCRIT % 35.6* PLATELET COUNT Thousand/uL 98* Recent Labs Lab Units 02/26/22 1416 SODIUM mmol/L 141 POTASSIUM mmol/L 4.3 CHLORIDE mmol/L 106 CO2 mmol/L 31 GLUCOSE mg/dL 102* BUN SERUM mg/dL 26* CREATININE mg/dL 1.75* CALCIUM mg/dL 8.8 PROTEIN g/dL 6.5 ALBUMIN g/dL 3.7 ALK PHOS U/L 102 ALT U/L 9 AST U/L 12 BILIRUBIN TOTAL mg/dL 0.4 Imaging/Labs: Reviewed non-con CT from 06/2021 and cath report from today as well as carotid duplexfrom 2020. Assessment and Plan: Active Problems: PVD (peripheral vascular disease) (CMS/HCC) ([facility]) Pain in both lower extremities Freddy Hill has PVD of his lower extremities with lifestyle-limiting claudication. He denies rest pain or tissue loss. His disease appears worse in his right leg but he is more symptomatic in his left leg. -Angiogram from today found left ALEXSANDRA as aneurysmal with moderate stenosis, mild left EIA disease, moderate right EIA disease, high grade stenosis in the distal segment of the right BARMAN involving the origin of the profunda and SFA as well as mid SFA and popliteal artery with three vessel runoff. On the left, the BARMAN is widely patent with high-grade stenosis of the proximal SFA with mild instent alex nosis in the mid-distal segment. There is three vessel runoff. He had left SFA stents previously placed in [place] -Would normally order a CTA with runoff to further evaluate his disease for surgical planning but he has CKD. Will order SULEMA and arterial duplex of bilateral lower extremities. -Based on angiogram, he may benefit from a right common femoral artery endarterectomy. He would need cardiac clearance. He is on 2L NC at night and PRN also s/p left thoracotomy in 2020 so would needpulmonary clearance as well. -He continues on Eliquis (to be switched to low dose Xarelto by Cardiology), plavix, and statin. -Discussed graduated exercise regimen. He reports trying to push past the pain and continue walking. -Discussed s/s of acute limb ischemia and when to go to ED. -He is also s/p right carotid endarterectomy for asymptomatic stenosis at OSH 10-15 years ago per patients. Last carotid duplex from 05/2021 showed less than 50% stenosis bilaterally. Repeat annually. He denies s/s of CVA/TIA. -Juxtarenal AA measuring 3.5 x 3.[address] non-con from 06/2021 as well as ductus diverticulum/aneurysm seen on aortic arch. Will need to be monitored with serial imaging. -We will see patient in clinic after his testing is completed to discuss surgical recommendations. Thank you for allowing us to participate in the care of this patient. We will continue to follow. If you have any questions, please don't hesitate to call. Mayelin Grubbs NP Vascular Surgery [facility] [phone] 21:24 PM Cosigned by Ruslan Busch MD at 03/04/2022 7:17 AM CDT documented in this encounter Miscellaneous Notes * Perioperative Nursing Note - Sandra Rocha RN - 03/03/2022 3:19 PM CDT Discharge instructions given to patient. Patient verbalized understanding. No questions at this time. * Pre-Sedation Documentation - Josiah Lay MD - 03/03/2022 10:24 AM CDT Sedation Plan ASA 3 - Severe systemic disease Mallampati class: II. Risks, benefits, and alternatives discussed with patient. documented in this encounter Plan of Treatment Not on file documented as of this encounter Procedures Procedure Name Priority Date/Time Associated Diagnosis Comments PERIPHERAL RUN OFF CATH Routine 03/03/2022 11:15 AM CDT PVD (peripheral vascular disease) (CMS/HCC) (HCC) Pain in both lower extremities PERIPHERAL ANGIOGRAPHY Routine 03/03/2022 11:15 AM CDT PVD (peripheral vascular disease) (CMS/HCC) (HCC) Pain in both lower extremities documented in this encounter Results * PERIPHERAL ANGIOGRAPHY, PERIPHERAL RUN OFF CATH (03/03/2022 11:15 AM CDT) Anatomical Region Laterality Modality X-Ray Angiograph y Narrative 03/03/2022 11:42 AM CDT PERIPHERAL ANGIOGRAM AND INTERVENTION REPORT DATE OF PROCEDURE: 03/03/22 INDICATION FOR PROCEDURE: ??Peripheral artery disease, lower extremity claudication BRIEF CLINICAL HISTORY: Freddy Hill is a 71 y.o. ??male with hypertension, history of AV block status post Medtronic pacemaker placement in June 2020, peripheral artery disease involving left lower extremity and carotid arteries, status post left lower extremity intervention/stenting of left SFA at outside facility; status post right carotid enterectomy; COPD/chronic respiratory failure on home oxygen, history of COVID-19 infection. ?? Patient has been experiencing worsening bilateral lower extremity claudication which is lifestyle limiting. ??He has been on optimal medical treatment including antiplatelet therapy, anticoagulation and cilostazol. ?? Patient was eager to proceed with peripheral angiogram. ??Patient has CKD, and was given normal saline prior to the procedure. Benefits and risks of the procedure were discussed with the patient in depth, and informed consent was taken prior to the procedure. Risks of the procedure include but are not limited to vascular complications like groin hematoma, retroperitoneal bleed, vessel perforation; periprocedural MS, stroke, contrast induced nephropathy, and even . ??Benefits and possible risks of the drug coated balloons were discussed with the patient as well. ??After discussing all the benefits, risks and alternatives, patient was willing to proceed with the procedure. PROCEDURES PERFORMED: 1. Abdominal aortogram with bilateral iliac runoff 2. Selective right common femoral angiogram with distal runoff 3. Selective left common iliac angiogram with distal runoff 4. Moderate Sedation (CPT 44085) MODERATE SEDATION: Midazolam 2 mg , Fentanyl 50 mcg, start time ?1037 stop time ?? 1115, total direct [id number] monitoring of conscious sedation ?? 38 minutes (CPT 53708) TRAINED OBSERVER: Sury Lock RN was trained observer for moderate sedation. ACCESS SITE: ??Right common femoral artery PROCEDURE: ??After obtaining informed consent, patient was brought to the recyclable materials collector and prepped and draped in the usual sterile manner. ??After local anesthesia with lidocaine, right common femoral artery access was taken with micropuncture needle followed by insertion of a 5 Armenian sheath over a 0.035 inch wire. ??Selective right common femoral angiogram with distal runoff was performed through the 5 Armenian sheath. ??Next, a 5 Armenian IM catheter was advanced into the distal abdominal aorta over a 035 glide Advantage wire, distal abdominal aortogram with bilateral iliac runoff was performed. ??The same catheter was pointed towards the left common iliac artery, selective left common iliac angiogram with distal runoff was performed. ??After this, a 5 Armenian pigtail catheter was advanced into the abdominal aorta, and abdominal aortogram was performed using DSA. ??The catheter was taken out. ??Manual pressure will be used for local hemostasis. ??Patient was hypertensive in the recyclable materials collector, and was given 5 mg of IV hydralazine initially, and later 10 mg of IV hydralazine in the holding area. ??There were no immediate procedure related complications. The angiographic findings and details of intervention are given below. ?? FINDINGS: PELVIC ANGIOGRAM: ??Abdominal aorta is diffusely calcific and ectatic. ?? Left renal artery is a medium caliber vessel with ostial narrowing. ??Right renal artery is not well visualized. ??Left common iliac artery is aneurysmal with moderate narrowing distal to the aneurysm. ??Left external iliac artery has mild diffuse disease. ??Right common iliac artery is ectatic, calcified with moderate diffuse disease in the external iliac artery. RIGHT LOWER EXTREMITY: ??Right common femoral artery is calcific with small aneurysm and severe disease, about 90-95% calcific stenosis in the distal segment before it gives rise to SFA and PFA, involving the origin of both vessels. ??SFA is diffusely calcific medium caliber vessel with severe diffuse disease. ??There is eccentric calcific about 50% stenosis in the proximal segment, high-grade about 95% stenosis which is densely calcific in the mid segment and mild diffuse calcific disease in the distal segment. ??Popliteal artery is a medium caliber vessel with diffuse calcific about 90% eccentric stenosis. ??There is 3 vessel distal runoff. LEFT LOWER EXTREMITY: ??Left common femoral artery is a medium caliber vessel with minor irregularities. PFA is patent. ??SFA is a medium caliber vessel with high-grade about 90% focal stenosis in the proximal segment. ?? Previously placed stents in the mid-distal segment have mild InStent restenosis. ??Popliteal artery has mild diffuse plaque. ??Three-vessel distal runoff is seen. CONCLUSIONS: Severe, calcific PAD- A) diffusely calcific and [...] stent with mild ISR; three-vessel left runoff. PLAN/RECOMMENDATIONS: ??Patient was taken off the catheterization table, and his revascularization options will be discussed with vascular surgery. He will be continued on current medical treatment including single antiplatelet treatment, low-dose rivaroxaban and statin. ??Patient will be aggressively hydrated with normal saline given his CKD. Voice recognition software was used to complete this document, therefore, nurse specialist variances may occur. Josiah Lay MD, [facility] 03/03/22 Josiah Lay MD CV CARDIAC CATH PROCEDURES Final Result documented in this encounter Visit Diagnoses Diagnosis PVD (peripheral vascular disease) (HCC) Unspecified peripheral vascular disease Pain in both lower extremities PVD (peripheral vascular disease) (HCC) Unspecified peripheral vascular disease Pain in both lower extremities documented in this encounter Admitting Diagnoses Diagnosis PVD (peripheral vascular disease) (HCC) Unspecified peripheral vascular disease Pain in both lower extremities documented in this encounter Administered Medications Inactive Administered Medications - up to 3 most recent administrations Medication Order MAR Action Action Date Dose Rate Site acetaminophen (TYLENOL) tablet 650 mg 650 mg, oral, Every 6 hours PRN, 1st line for pain, Starting on Tue03/03/22 at 1602 Given 03/03/2022 4:10 PM CDT 650 mg fentaNYL (SUBLIMAZE) preservative free injection As needed, Starting on Tue03/03/22 at 1037, Intra-Procedure (CV) Given 03/03/2022 10:49 AM CDT 25 mcg Given 03/03/2022 10:37 AM CDT 25 mcg heparin in 0.9% sodium chloride 1,000 units/500 mL (2 unit/mL) infusion (premix) As needed, Starting on Tue03/03/22 at 1024, Intra-Procedure (CV) Given 03/03/2022 10:24 AM CDT 1,000 mL hydrALAZINE (APRESOLINE) injection 10 mg 10 mg, intravenous, Administer over 2 Minutes, Once, On Tue03/03/22 at 1215, For 1 dose, Indications: hypertensionIndications:hypertensi on Given 03/03/2022 11:44 AM CDT 10 mg hydrALAZINE (APRESOLINE) injection Administer over 2 Minutes, As needed, Starting on Tue03/03/22 at 1056, Intra-Procedure (CV), Indications: hypertensionIndications:hypertensi on Given 03/03/2022 10:56 AM CDT 5 mg ioversoL (OPTIRAY 350) injection As needed, Starting on Tue03/03/22 at 1117, Intra-Procedure (CV) Given 03/03/2022 11:17 AM CDT 144 mL lidocaine (XYLOCAINE) 10 mg/mL (1 %) injection As needed, Starting on Tue03/03/22 at 1049, Intra-Procedure (CV), Indications: Administration of Local AnesthesiaIndications:Administrati on of Local Anesthesia Given 03/03/2022 10:49 AM CDT 10 mL Right Groin midazolam (VERSED) 1 mg/mL preservative free injection Administer over 2 Minutes, As needed, Starting on Tue03/03/22 at 1038, Intra-Procedure (CV) Given 03/03/2022 10:49 AM CDT 1 mg Given 03/03/2022 10:38 AM CDT 1 mg ondansetron (ZOFRAN) injection 2 mg 2 mg, intravenous, Administer over 2 Minutes, Once, On Tue03/03/22 at 1300, For 1 dose Given 03/03/2022 12:28 PM CDT 2 mg ondansetron (ZOFRAN) injection 2 mg 2 mg, intravenous, Administer over 2 Minutes, Every 6 hours PRN, nausea, vomiting, Starting on Tue03/03/22 at 1602 sodium chloride 0.9% infusion 150 mL/hr, intravenous, Continuous, Starting on Tue03/03/22 at 1000 New Bag 03/03/2022 12:50 PM CDT 150 mL/hr 150 mL/hr Rate/Dose Change 03/03/2022 12:30 PM CDT 150 mL/hr 150 mL /hr Rate/Dose Change 03/03/2022 12:10 PM CDT 999 mL/hr 999 mL /hr sodium chloride 0.9% infusion Continuous PRN, Starting on Tue03/03/22 at 1022, Intra-Procedure (CV) New Bag 03/03/2022 10:22 AM CDT 150 mL/hr 150 mL/hr documented in this encounter Discontinued Medications Medication Sig Discontinue Reason Start Date End Da te rivaroxaban (XARELTO) 2.5 mg tablet Take 1 tablet (2.5 mg total) by mouth 2 (two) times a day Reorder 12/30/2021 03/03/2022 documented as of this encounter Active and Recently Administered Medications Times are shown in CDT. Scheduled Medication Order 03/01/2022 03/02/2022 03/03/2022 hydrALAZINE (APRESOLINE) injection 10 mg (COMPLETED) 10 mg, intravenous, Administer over 2 Minutes, Once, On Tue03/03/22 at 1215, For 1 dose, Indications: hypertension 1144 (Given - Provid er: Ivy Spivey RN) ondansetron (ZOFRAN) injection 2 mg (COMPLETED) 2 mg, intravenous, Administer over 2 Minutes, Once, On Tue03/03/22 at 1300, For 1 dose 1228 (Given - Provid er: Ivy Spivey RN - Comment: pt feeling nauseated) Continuous Medication Order 03/01/2022 03/02/2022 03/03/2022 sodium chloride 0.9% infusion 150 mL/hr, intravenous, Continuous, Starting on Tue03/03/22 at 1000 0929 (New Bag - Prov ider: Ivy Spivey RN)1210 (Rate/Dose Change - Provider: Ivy Spivey RN - Comment: for hypotension 500ml ns bolus)1230 (Rate/Dose Change - Provider: Ivy Spivey RN - Comment: bolus done, ns@150ml/hr)1250 (New Bag - Provider: Ivy Spivey RN)2212 (Due: Stopped) PRN Medication Order 03/01/2022 03/02/2022 03/03/2022 acetaminophen (TYLENOL) tablet 650 mg 650 mg, oral, Every 6 hours PRN, 1st line for pain, Starting on Tue03/03/22 at 1602 1610 (Given - Provid er: Sandra Rocha RN) fentaNYL (SUBLIMAZE) preservative free injection (CANCELED) As needed, Starting on Tue03/03/22 at 1037, Intra-Procedure (CV) 1037 (Given - Provid er: Sury Lock RN)1049 (Given - Provider: Sury Lock RN) heparin in 0.9% sodium chloride 1,000 units/500 mL (2 unit/mL) infusion (premix) (CANCELED) As needed, Starting on Tue03/03/22 at 1024, Intra-Procedure (CV) 1024 (Given - Provid er: Josiah Lay MD) hydrALAZINE (APRESOLINE) injection (CANCELED) Administer over 2 Minutes, As needed, Starting on Tue03/03/22 at 1056, Intra-Procedure (CV), Indications: hypertension 1056 (Given - Provid er: Mirella Doe RN) ioversoL (OPTIRAY 350) injection (CANCELED) As needed, Starting on Tue03/03/22 at 1117, Intra-Procedure (CV) 1117 (Given - Provid er: Josiah Lay MD) lidocaine (XYLOCAINE) 10 mg/mL (1 %) injection (CANCELED) As needed, Starting on Tue03/03/22 at 1049, Intra-Procedure (CV), Indications: Administration of Local Anesthesia 1049 (Given - Provid er: Josiah Lay MD) midazolam (VERSED) 1 mg/mL preservative free injection (CANCELED) Administer over 2 Minutes, As needed, Starting on Tue03/03/22 at 1038, Intra-Procedure (CV) 1038 (Given - Provid er: Sury Lock, MARY)1049 (Given - Provider: Sury Lock RN) ondansetron (ZOFRAN) injection 2 mg 2 mg, intravenous, Administer over 2 Minutes, Every 6 hours PRN, nausea, vomiting, Starting on Tue03/03/22 at 1602 sodium chloride 0.9% infusion (COMPLETED) Continuous PRN, Starting on Tue03/03/22 at 1022, Intra-Procedure (CV) 1022 (New Bag - Prov ider: Mirella Doe RN)1223 (Stopped - Provider: Ivy Spivey RN - Comment: duplicate infusion) documented in this encounter Orders Medications Ordered That Mainor ht Not Have Been Administered Count Last Ordered Date First Ordered Date ondansetron (ZOFRAN) injection 2 mg 1 03/03 Consult Count Last Ordered Date First Orde red Date IP CONSULT TO VASCULAR SURGERY 1 03/03/2022 documented in this encounter Care Teams Attendant Lodging Facilities Relationship Specialty Start Date End Date Ross Espinosa MD [address] [place] [address] PCP - General 03/03/22 04/07/22 documented as of this encounter
--- OUTSIDE RECORDS SUMMARY | 2024-09-12 15:41 | XMS_ITS | Encounter Summary ---
Author Organization [facility] Address [address] [place] [address] Care Team Providers Care Logging Shovel Operator Name Role Phone Ross Espinosa MD Primary Care Provider [phone] Encounter Details Date Type Department Care Team (Late st Contact Info) Description 10/26/2021 Telephone [facility] Cardiology [address] [place] [address] Josiah Lay MD [address] [id number] Social History Tobacco Use Types Packs/Day Years Used Date Smoking Tobacco: Former Cigarettes Q uit: 08/22/2009 Smokeless Tobacco: Never Sex and Gender Information Value Date Recorded Sex Assigned at Not on file Legal Sex Male 1:43 PM CDT Gender Identity Male 08/12/2022 2:14 PM COMMUNITY PHARMACIST Sexual Orientation Not on file documented as of this encounter Miscellaneous Notes * Telephone Encounter - Emely Duke RN - 10/26/2021 1:58 PM COMMUNITY PHARMACIST Cardiac clearance faxed to office to have DK sign. UNITY PHARMACIST * Telephone Encounter - Emely Duke RN - 10/26/2021 1:09 PM COMMUNITY PHARMACIST LM on VM that we have received cardiac clearance. UNITY PHARMACIST * Telephone Encounter - Shell Malin - 10/26/2021 12:53 PM CST Pt called states he is having surgery on 10/[address] Grubbs. States he was instructed tocontact our office for clearance. I asked pt if he can have them fax a cardiac clearance request today for Dr. Lay to clear him. Pt states he will contact office and have them fax cardiac clearance request. Contact:[phone] UNITY PHARMACIST documented in this encounter Plan of Treatment Not on file documented as of this encounter Visit Diagnoses Not on filedocumented in this encounter Care Teams Logging Shovel Operator Relationship Specialty Start Date End Date Ross Espinosa MD [address] [place] [address] PCP - General 06/11/21 03/02/22 documented as of this encounter
--- OUTSIDE RECORDS SUMMARY | 2024-09-12 15:41 | XMS_ITS | Encounter Summary ---
Author Organization [facility] Address [address] [place] [address] Phone Care Team Providers Care Poultry Farmer Egg Name Role Phone Ross Espinosa MD Primary Care Provider [phone] Reason for Visit * Reason Comments Peripheral Vascular Disease Encounter Details Date Type Department Care Team (Latest Contact Info) Description 03/22/2022 1:30 PM CDT Office Visit [facility] Surgery [address] [facility] [address] [facility] [address] [place] [phone] Ruslan Busch MD [address] [place] [address] [address] [place], [place] [id number] Atherosclerosis of [place]ed[place] sal[place] arteries of extremities with intermittent claudication, bilateral legs (HCC) Social History Tobacco Use Types Packs/Day [...] CDT Gender Identity Male 08/12/2022 2:14 PM PHONE REPRESENTATIVE Sexual Orientation Not on file documented as of this encounter Last Filed Vital Signs Vital Sign Reading Time Taken Comments Blood Pressure 130/84 03/22/2022 2:18 PM CDT Pulse 93 03/22/2022 2:18 PM CDT Temperature 37 ??C (98.6 ??F) 03/22/2022 2:18 PM CDT Respiratory Rate 14 03/22/2022 2:18 PM CDT Oxygen Saturation - - Inhaled Oxygen Concentration - - Weight 91.4 kg (201 lb 9.6 oz) 03/22/2022 2:18 P M CDT Height 172.7 cm (5' 7.99) 03/22/2022 2:18 PM CD T Body Mass Index 30.66 03/22/2022 2:18 PM CDT documented in this encounter Patient Instructions * Patient Instructions* Ruslan Busch MD - 03/22/2022 1:30 PM CDT Right femoral endarterectomy with SFA and popliteal angioplasty documented in this encounter Progress Notes * Ruslan Busch MD - 03/22/2022 1:30 PM CDT Patient: Freddy Hill Date of : 1950 Date of Service: 03/22/2022 New Patient Consultation Consultation at the request of Josiah Lay MD for an opinion regarding PAD I have personally taken a history, examined the patient and determined the assessment and plan as outlined below. CHIEF COMPLAINT: Chief Complaint Patient presents with ??? Peripheral Vascular Disease HISTORY OF PRESENT ILLNESS: Patient is a 71 y.o. male with PMHx of HTN, AV block s/p PPM, PAD s/p LLE intervention, carotid stenosis s/p right carotid endarterectomy, bilateral hip replacements, and COPD on home O2 2L at night who underwent an outpatient lower extremity angiogram by Dr. Lay. We were requested to consult regarding further revascularization options. Patient reports having worsening, lifestyle-limiting bilateral lower extremity claudication. He states the pain is predominantly inhis calves but he has also been noticing it in his thighs. He denies rest pain or tissue loss. He reports chronic numbness in his feet. He has been taking plavix, statin, and low-dose Xarelto without improvement. ?? Angiogram found left ALEXSANDRA as aneurysmal with moderate stenosis, mild left EIA disease, moderate right EIA disease, high grade stenosis in the distal segment of the right GLOBAL RISK MANAGEMENT DIRECTOR involving the origin of the profunda and SFA as well as mid SFA and popliteal artery with three vessel runoff. On the left, the GLOBAL RISK MANAGEMENT DIRECTOR is widely patent with high-grade stenosis of the proximal SFA with mild instent stenosis in the mid-distal segment. There is three vessel runoff. [place] right carotid endarte[place] for [...] whether he needs it or not. 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 He quit smoking over 10 years ago. Past Medical History: Diagnosis Date ??? Anemia ??? Arthritis ??? Asthma ??? AV block Jun 2020 PM insertion ??? Carotid stenosis s/p right CEA ??? CKD (chronic kidney disease) stage 3, GFR 30-59 ml/min ([facility]) ??? Claudication ([facility]) ([facility]) ??? COPD (chronic obstructive pulmonary disease) ([facility]) ([facility]) ??? Cough ??? COVID-19 05/2020 hospitalization 3 days ??? Cramps of lower extremity ??? Easy bruisability ??? Empyema ([facility]) ([facility]) 05/2020 ??? Fatigue ??? GERD (gastroesophageal reflux disease) ??? Hyperkalemia ??? Hypertension ??? Irregular heart beat ??? PAD (peripheral artery disease) ([facility]) ([facility]) ??? Pneumonia 2018 ??? Sleep apnea ??? SOB (shortness of breath) ??? Vision changes ??? Wheezing Past Surgical History: Procedure Laterality Date ??? [...] Consumption: Never ??? Average Number of Drinks: 1 or 2 ??? Frequency of Binge Drinking: Never Allergies as of 03/22/2022 ??? (No Known Allergies) Current Outpatient Medications: ??? acetaminophen 500 mg capsule, Take 2 capsules (1,000 mg total) by mouth every 6 (six) hours, Disp: 30 tablet, Rfl: ??? albuterol 2.5 mg /3 mL (0.083 %) nebulizer solution, INHALE 3 ML 3 TIMES A DAY BY NEBULIZATION ROUTE FOR 30 DAYS., Disp: , Rfl: ??? albuterol HFA (PROVENTIL HFA,VENTOLIN HFA,PROAIR HFA) 90 mcg/actuation inhaler, INHALE 2 PUFFS EVERY 4 HOURS BY INHALATION ROUTE NEEDED FOR 30 DAYS., Disp: , Rfl: ??? atorvastatin (LIPITOR) 80 mg tablet, Take 1 tablet (80 mg total) by mouth daily, Disp: 30 tablet, Rfl: 11 ??? carvediloL (COREG) 25 mg tablet, Take 1.5 tablets by mouth 2 (two) times a day, Disp: , Rfl: ??? cephalexin (KEFLEX) 500 mg capsule, TAKE 1 CAPSULE BY MOUTH EVERY 8 HOURS, Disp: , Rfl: ??? cetirizine 10 mg capsule, Take by mouth, Disp: , Rfl: ??? clopidogreL (PLAVIX) 75 mg tablet, Take 75 mg by mouth daily, Disp: , Rfl: ??? doxepin (SINEquan) 25 mg capsule, Take 25 mg by mouth nightly, Disp: , Rfl: ??? dupilumab (DUPIXENT) syringe, Inject 300 mg under the skin every 14 (fourteen) days, Disp: , Rfl: ??? finasteride (PROSCAR) 5 mg tablet, Take 5 mg by mouth daily, Disp: , Rfl: ??? fluticasone propion-salmeteroL (ADVAIR DISKUS) 500-50 mcg/dose diskus inhaler, Inhale 1 puff 2 (two) times a day, Disp: , Rfl: ??? furosemide (LASIX) 40 mg tablet, Take 40 mg by mouth daily. Indications: per md advisement, Disp: , Rfl: ??? gabapentin (NEURONTIN) 300 mg capsule, Take 300 mg by mouth daily as needed, Disp: , Rfl: ??? melatonin 5 mg capsule, Take by mouth, Disp: , Rfl: ??? multivitamin capsule, Take 1 capsule by mouth daily, Disp: , Rfl: ??? oxygen, Administer 3 L/min into each nostril as needed (hypoxia). Indications: trouble breathing, Disp: , Rfl: ??? pantoprazole DR (PROTONIX) 40 mg EC tablet, Take 1 tablet (40 mg total) by mouth daily, Disp: 30 tablet, Rfl: 11 ??? potassium chloride ER (KLOR-CON) 10 mEq CR tablet, Take 10 mEq by mouth daily. Indications: lowamount of potassium in the blood, Disp: , Rfl: ??? rivaroxaban (XARELTO) 2.5 mg tablet, Take 1 tablet (2.5 mg total) by mouth 2 (two) times a day,Disp: 60 tablet, Rfl: 11 ??? Spiriva Respimat 2.5 mcg/actuation inhaler, INHALE 2 PUFFS BY MOUTH ONCE DAILY, Disp: , Rfl: ??? tamsulosin (FLOMAX) 0.4 mg extended release capsule, Take 2 capsules (0.8 mg total) by mouth daily with dinner, Disp: , Rfl: ??? traMADoL (ULTRAM) 50 mg tablet, Take 50 mg by mouth every 6 (six) hours as needed, Disp: , Rfl: REVIEW OF SYSTEMS: The patient???s vascular health history form was reviewed and signed by me dated 03/22/2022 The form was scanned into Media. PHYSICAL EXAMINATION: VITAL SIGNS: Vitals BP 130/84 (BP Location: Left arm, Patient Position: Sitting) Pulse 93 Temp 37 ??C (98.6 ??F) (Temporal) Resp 14 Ht 172.7 cm (5' 7.99) Wt 91.4 kg (201 lb 9.6 oz) BMI 30.66 kg/m?? On oxygen HENT: Normocephalic and atraumatic. Extraocular movements are intact. Moist mucus membranes. EYES: Pupils are equal and reactive to light bilaterally. NECK: Supple with no lymphadenopathy CHEST: Symmetric chest expansion with no accessory muscle usage HEART: Regular rate and rhythm. ABDOMEN: Soft, nontender, nondistended. VASCULAR: Palpable radial pulse, diminished common femoral artery pulses MUSCULOSKELETAL: Warm, well perfused NEURO: Grossly intact motor exam. SKIN: No visible rashes. No wounds noted. VASCULAR LABS: I personally reviewed the report and images of: US SULEMA US arterial duplex lower extremity bilateral RADIOLOGY: I personally reviewed the report and images of: Angiogram Patient Active Problem List Diagnosis ??? Cardiac pacemaker in situ ??? Empyema (CMS/HCC) ([facility]) ??? PVD (peripheral vascular disease) (CMS/HCC) ([facility]) ??? COPD (chronic obstructive pulmonary disease) (CMS/HCC) ([facility]) ??? CKD (chronic kidney disease) stage 4, GFR 15-29 ml/min (CMS/HCC) ([facility]) ??? Hypertension ??? Anemia ??? ALFREDO (acute kidney injury) (CMS/HCC) ([facility]) ??? Pain in both lower extremities ASSESSMENT/PLAN: Freddy Hill is a 71 y.o. 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 I discussed the risks associated with surgical intervention in detail. He will need cardiac and pulmonary clearance prior to any intervention - continue Plavix, low-dose Xarelto and statins. He will need to hold low-dose Xarelto for 3 days prior to surgical intervention - if he is cleared by both Cardiology and Pulmonary, he would benefit from right femoral endarterectomy with patch angioplasty extending on to proximal SFA with external iliac stent angioplasty on the right side and possible right SFA popliteal artery drug coated balloon angioplasty. Left SFA popliteal artery segment would warrant intervention in the same setting with balloon angioplasty and possible stenting Ruslan Busch MD documented in this encounter Plan of Treatment Not on file documented as of this encounter Visit Diagnoses Diagnosis Atherosclerosis of [place] sal[place] arteries of extremities with intermittent claudication, bilateral legs (HCC) documented in this encounter Historical Medications * This list may reflect changes made after this encounter. finasteride (PROSCAR) 5 mg tablet Take 1 tablet (5 mg total) by mouth 2 (two) times a day 02/13/2022 cephalexin (KEFLEX) 500 mg capsule TAKE 1 CAPSULE BY MOUTH EVERY 8 HOURS 01/07/2022 01/26/2024 added in this encounter Care Teams Poultry Farmer Egg Relationship Specialty Start Date End Date Ross Espinosa MD [address] [place] [address] PCP - General 03/03/22 04/07/22 documented as of this encounter
--- OUTSIDE RECORDS SUMMARY | 2024-09-12 15:41 | XMS_ITS | Encounter Summary ---
Author Organization [facility] Address [address] [place] [address] Care Team Providers Care Polystyrene Molding Machine Tender Name Role Phone Ross Espinosa MD Primary Care Provider +1 [phone] Reason for Visit * Cardiology (Routine) - Closed Specialty Diagnoses / Procedures Referred By Contac t Referred To Contact Diagnoses MONTEZ (dyspnea on exertion) Chronic respiratory failure with hypoxia, on home O2 therapy (CMS/HCC) (HCC) Procedures Transthoracic Echo Complete W Doppler/CF Waldemar Baca MD [address] [address] Phone: tel: fax: [facility] Referral ID Status Reason Start Date Expiration Date Visits Re quested Visits Authorized [id number] Closed 10/21/2021 11/20/2022 1 1 Encounter Details Date Type Department Care Team (Latest Contact Info) Description 11/24/2021 4:00 PM CDT Ancillary Procedure [facility] Cardiology [address] [place] [address] MONTEZ (dyspnea on exertion); Chronic respiratory failure with hypoxia, on home O2 therapy (CMS/HCC) (HCC) Social History Tobacco Use Types Packs/Day Years Used Date Smoking Tobacco: Former Cigarettes Q uit: 08/22/2009 Smokeless Tobacco: Never Sex and Gender Information Value Date Recorded Sex Assigned at Not on file Legal Sex Male 1:43 PM CDT Gender Identity Male 08/12/2022 2: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 Sexual Orientation Not on file documented as of this encounter Plan of Treatment Not on file documented as of this encounter Procedures Procedure Name Priority Date/Time Associated Diagnosis Comments TRANSTHORACIC ECHO (TTE) COMPLETE W DOPPLER/CF W CONTRAST Routine 11/24/2021 12:45 PM CDT MONTEZ (dyspnea on exertion) Chronic respiratory failure with hypoxia, on home O2 therapy (CMS/HCC) (HCC) documented in this encounter Results * TRANSTHORACIC ECHO (TTE) COMPLETE W DOPPLER/CF W CONTRAST (11/24/2021 12:45 PM CDT) Anatomical Region Laterality Modality Ultrasound 11/24/2021 11:3 7 AM CDT Narrative 11/24/2021 4:42 PM CDT [facility] Cardiology [address] [address] [address], [place] [address] P:[phone] P:[phone] Echocardiographic Report Patient Name: TOBY HILL : 1950 Study Date: 11/24/2021 11:37:02 AM Gender: M Tech: Location: [place] Ref.Provider: WALDEMAR BACA Height(Cm): 173 BSA: 2 [...] Findings: Interpretation Site: Exam was interpreted at [facility]. Left Ventricle: Normal left ventricular size. Definity [...] sclerotic. Electronically Signed By: Talon Good MD, [facility] 2021-11-24 16:42:23 CDT Procedure Note Talon Good MD - 11/24/2021 [facility] Cardiology [address], [place] [address] [address], [place] [address] P:[phone] P:[phone] Echocardiographic Report Patient Name: TOBY HILLPatient ID: [id number] : [id number] Date: 11/24/2021 11:37:02 AM Gender: MAccession #: [id number] Tech: GMLocation: [place] Ref.Provider: WALDEMAR BACAHeight(Cm): 173 BSA: 2Weight(Kg): 86.18 [...] 0.40 - 0.80 ] m/s MV Decel Neij943 [ 150 - 200 ] msec PV Peak Vel0.72 [ 0.40 - 0.80 ] m/s E'0.07 E/E' 6 Findings: Interpretation Site: Exam was interpreted at [facility]. Left Ventricle: Normal left ventricular size. Definity [...] sclerotic. Electronically Signed By: Talon Good MD, [facility] 2021-11-24 16:42:23 CDT Waldemar Baca MD CV ECHO PROCEDURES Final Result documented in this encounter Visit Diagnoses Diagnosis MONTEZ (dyspnea on exertion) Other dyspnea and respiratory abnormality Chronic respiratory failure with hypoxia, on home O2 therapy (CMS/HCC) (HCC) documented in this encounter Administered Medications Inactive Administered Medications - up to 3 most recent administrations Medication Order MAR Action Action Date Dose Rate Site perflutren lipid (DEFINITY) 1.5 mL in sodium chloride 0.9% 10 mL syringe 1-10 mL, intravenous, Once in imaging, contrast, Starting on Tue11/24/21 at 1224, For 1 dose Contrast Given 11/24/2021 2:10 PM CDT 1 mL documented in this encounter Care Teams Polystyrene Molding Machine Tender Relationship Specialty Start Date End Date Ross Espinosa MD [address] [place] [address] PCP - General 06/11/21 03/02/22 documented as of this encounter
--- OUTSIDE RECORDS SUMMARY | 2024-09-12 15:41 | XMS_ITS | Encounter Summary ---
Author Organization [facility] Address [address] [place] [address] Care Team Providers Care Manager Summer Name Role Phone Ross Espinosa MD Primary Care Provider [phone] [phone] Reason for Visit * Reason Onset Date Comments Authorization/Certification 01/19/2022 Encounter Details Date Type Department Care Team (Late st Contact Info) Description 01/19/[address] 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 Pt is scheduled for further testing thisweek. Pt would like to reschedule peripheral angiogram to a later date. Spoke with Rashel at [facility] coreroom foundry laborer. Pt rescheduled for 02/25 at 1000 at [facility]. Instructions reviewed. Will forward to Kasia to see if we are able to extend the auth to 02/25. Will forward to CIARA as OBED. * Telephone Encounter - Tiki Garber - 02/02/2022 10:57 AM CDT Pt called asking to reschedule his cath scheduled 02/04 states he will not have all the pre-testing stuff done before then.Thank you Contact:[phone] * Telephone Encounter - Kasia Jj MBA - 02/01/2022 2:22 PM CDT Called [facility] @ [phone] spoke to medical and requested extension on auth per below request. Expiration date on auth extended to 02/19/2022. Called Victoria back and gave her the info. * Telephone Encounter - Martha Lucia RN - 02/01/2022 1:58 PM CDT Will forward to Kasia. * Telephone Encounter - Shell Malin - 02/01/2022 1:05 PM CDT Victoria called from [facility] asking if end date on prior auth can be extended. Due to other provider not submitting prior auth for lab work. Contact: * Telephone Encounter - Sherlyn Power - 01/19/2022 11:35 AM CDT Per [facility] online received authorization for [id number]. APPROVED AUTH [id number] VALID 02/04/22 -02/04/22 documented in this encounter Plan of Treatment Not on file documented as of this encounter Visit Diagnoses Not on filedocumented in this encounter Care Teams Manager Summer Relationship Specialty Start Date End Date Ross Espinosa MD [address] [place] [address] PCP - General 06/11/21 03/02/22 documented as of this encounter
--- OUTSIDE RECORDS SUMMARY | 2024-09-12 15:41 | XMS_ITS | Encounter Summary ---
Author Organization [facility] Address [address] [place] [address] Care Team Providers Care Clay Caster Name Role Phone Ross Espinosa MD Primary Care Provider [phone] Encounter Details Date Type Department Care Team (Latest Contact Info) Description 03/03/2022 6:54 AM CDT - 03/03/2022 5:45 PM CDT Hospital Encounter [facility] Cardiac Catheterization Lab [address] [place] [address] Josiah Lay MD [facility] [place] [id number] PVD (peripheral vascular disease) (CMS/HCC) ([facility]); Pain in both lower extremities Discharge Disposition: Discharge to hospice / home Social History Tobacco Use Types Packs/Day Years [...] CDT Gender Identity Male 08/12/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 Sexual Orientation Not on file documented as of this encounter Last Filed Vital Signs Vital Sign Reading Time Taken Comments Blood Pressure 172/81 03/03/2022 5:33 PM CDT Pulse 102 03/03/2022 5:13 PM CDT Temperature 36.7 ??C (98 ??F) 03/03/2022 8:36 AM CDT Respiratory Rate 20 03/03/2022 5:13 PM CDT Oxygen Saturation 95% 03/03/2022 5:13 PM CDT Inhaled Oxygen Concentration - - Weight 91.4 kg (201 lb 8 oz) 03/03/2022 8:36 AM CDT Height 172.7 cm (5' 8) 03/03/2022 8:36 AM CDT Body Mass Index 30.64 03/03/2022 8:36 AM CDT documented in this encounter Discharge Diagnoses Diagnosis Atherosclerosis of [place] arteries of extremities with intermittent claudication, bilateral legs (HCC) - ATHEROSCLEROSIS OF [place] ARTERIES OF EXTREMITIES WITH INTERMITTENT CLAUDICATION, BILATERAL LEGS Aneurysm of iliac artery (CMS/HCC) (HCC) - ANEURYSM OF ILIAC ARTERY Aneurysm of iliac artery Atherosclerosis of aorta (HCC) - ATHEROSCLEROSIS OF AORTA Atherosclerosis of aorta Abdominal aortic ectasia (CMS/HCC) (HCC) - ABDOMINAL AORTIC ECTASIA Abdominal aortic ectasia Hypertensive chronic kidney disease with stage 1 through stage 4 chronic kidney disease, or unspecified chronic kidney disease - HYPERTENSIVE CHRONIC KIDNEY DISEASE WITH STAGE 1 THROUGH STAGE 4 CHRONIC KIDNEY DISEASE, OR UNSPECIF Chronic kidney disease, stage 3 unspecified (HCC) - CHRONIC KIDNEY DISEASE, STAGE 3 UNSPECIFIED Unspecified atrioventricular block - UNSPECIFIED ATRIOVENTRICULAR BLOCK Chronic obstructive pulmonary disease, unspecified (HCC) - CHRONIC OBSTRUCTIVE PULMONARY DISEASE, UNSPECIFIED Chronic respiratory failure, unspecified whether with hypoxia or hypercapnia (HCC) - CHRONIC RESPIRATORY FAILURE, UNSPECIFIED WHETHER WITH HYPOXIA OR HYPERCAPNIA Sleep apnea, unspecified - SLEEP APNEA, UNSPECIFIED Gastro-esophageal reflux disease without esophagitis - GASTRO-ESOPHAGEAL REFLUX DISEASE WITHOUT ESOPHAGITIS Personal history of COVID-19 - PERSONAL HISTORY OF COVID-19 Personal history of nicotine dependence - PERSONAL HISTORY OF NICOTINE DEPENDENCE Presence of cardiac pacemaker - PRESENCE OF CARDIAC PACEMAKER Cardiac pacemaker in situ Family history of ischemic heart disease and other diseases of the circulatory system - FAMILY HISTORY OF ISCHEMIC HEART DISEASE AND OTHER DISEASES OF THE CIRCULATORY SYSTEM Dependence on supplemental oxygen - DEPENDENCE ON SUPPLEMENTAL OXYGEN 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 Doctor office phone number: [phone] documented in this encounter Medications at Time [...] by mouth daily 30 tablet 11 10/22/2021 3 rivaroxaban (XARELTO) 2.5 mg tablet [...] stage 3, GFR 30-59 ml/min ([facility]) ??? Claudication (CMS/HCC) ([facility]) ??? COPD (chronic obstructive pulmonary disease) (CMS/HCC) ([facility]) ??? COVID-19 05/2020 hospitalization 3 days ??? Empyema (CMS/HCC) ([facility]) 05/2020 ??? GERD (gastroesophageal reflux disease) ??? Hyperkalemia ??? Hypertension ??? PAD (peripheral artery disease) (CMS/HCC) ([facility]) ??? Pneumonia 2018 ??? Sleep apnea Past [...] (40 mg total) by mouth daily 30 [id number] 03/03/2022 at Unknown time ??? Spiriva Respimat [...] in this encounter Consult Notes * Mayelin Grubbs, SHASHANK - 03/03/2022 1:24 PM CDTAssociated Order(s): IP CONSULT TO VASCULAR SURGERY Vascular Surgery H&P Freddy Hill 1950 Reason for Consult: PAD Requesting Provider: Dr. Josiah Lay Chief Complaint: bilateral lower extremity claudication HPI: Freddy Hill is 71 y.o. White male with [...] in the distal segment of the right EXPLOSIVE SPECIALIST involving the origin of the profunda and SFA as well as mid SFA and popliteal artery with three vessel runoff. On the left, the EXPLOSIVE SPECIALIST is widely patent with high-grade stenosis of the proximal SFA with mild instent stenosis in the mid-distal segment. There is three vessel runoff. [place] right carotid endarterectomy for [...] stage 3, GFR 30-59 ml/min ([facility]) ??? Claudication (CMS/HCC) ([facility]) ??? COPD (chronic obstructive pulmonary disease) (CMS/HCC) ([facility]) ??? COVID-19 05/2020 hospitalization 3 days ??? Empyema (CMS/HCC) ([facility]) 05/2020 ??? GERD (gastroesophageal reflux disease) ??? Hyperkalemia ??? Hypertension ??? PAD (peripheral artery disease) (CMS/HCC) ([facility]) ??? Pneumonia 2018 ??? Sleep apnea Past [...] (CMS/HCC) (HCC) Pain in both lower extremities Freddy Hill [...] in the distal segment of the right EXPLOSIVE SPECIALIST involving the origin of the profunda and SFA as well as mid SFA and popliteal artery with three vessel runoff. On the left, the EXPLOSIVE SPECIALIST is widely patent with high-grade stenosis of the proximal SFA with mild instent alex nosis in the mid-distal segment. There is three vessel runoff. He had left SFA stents previously placed in [place] -Would normally order a CTA with runoff [...] to call. Mayelin Grubbs NP Vascular Surgery [facility] [phone] 21:24 PM Cosigned by Ruslan Busch MD [...] groin hematoma, retroperitoneal bleed, vessel perforation; periprocedural KS, stroke, contrast induced nephropathy, and even . [...] with distal runoff 4. Moderate Sedation (CPT 66132) MODERATE SEDATION: Midazolam 2 mg , Fentanyl 50 mcg, start time ?1037 stop time ?? 1115, total direct [id number] monitoring of conscious sedation ?? 38 minutes (CPT 63293) TRAINED OBSERVER: Sury Lock RN was trained observer for moderate sedation. ACCESS SITE: ??Right common femoral artery PROCEDURE: ??After obtaining informed consent, patient was brought to the picket labor union and prepped and draped in the usual sterile manner. ??After local anesthesia with lidocaine, right common femoral artery access was taken with micropuncture needle followed by insertion of a 5 Kenyan sheath over a 0.035 inch wire. ??Selective right common femoral angiogram with distal runoff was performed through the 5 Kenyan sheath. ??Next, a 5 Kenyan IM catheter was advanced into the distal abdominal aorta over a 035 glide Advantage wire, distal abdominal aortogram with bilateral iliac runoff was performed. ??The same catheter was pointed towards the left common iliac artery, selective left common iliac angiogram with distal runoff was performed. ??After this, a 5 Kenyan pigtail catheter was advanced into the abdominal aorta, and abdominal aortogram was performed using DSA. ??The catheter was taken out. ??Manual pressure will be used for local hemostasis. ??Patient was hypertensive in the picket labor [employer], and was given 5 mg of IV [...] was used to complete this document, therefore, smoking pipe mounter variances may occur. Josiah Lay MD, [facility] 03/03/22 Josiah Lay MD CV CARDIAC [...] Given 03/03/2022 4:10 PM CDT 650 mg hydrALAZINE (APRESOLINE) injection 10 mg 10 mg, intravenous, Administer over 2 Minutes, Once, On Tue03/03/22 at 1215, For 1 dose, Indications: hypertensionIndications:hyp ertension Given 03/03/2022 11:44 AM CDT 10 mg ondansetron (ZOFRAN) injection 2 mg 2 [...] PM CDT 999 mL/hr 999 mL /hr documented in this encounter Discontinued Medications Medication [...] hypertension 1144 (Given - Provid er: Ivy Spivey, MARY) ondansetron (ZOFRAN) injection 2 mg (COMPLETED) 2 [...] Sury Lock, MARY)1049 (Given - Provider: Sury Lock, MARY) ondansetron (ZOFRAN) injection 2 mg 2 mg, [...] fentaNYL (SUBLIMAZE) preserv ative free injection 1 03/03/2022 heparin in 0.9% sodium chlor betsy 1,000 units/500 mL (2 unit/mL) infusion (premix) 1 03/03/2022 hydrALAZINE (APRESOLINE) injection 1 2021 ioversoL (OPTIRAY 350) injection 1 03/03/20 lidocaine (XYLOCAINE) 10 mg/ mL (1 %) injection 1 03/03/2022 midazolam (VERSED) 1 mg/mL p reservative free injection 03/03/2022 ondansetron (ZOFRAN) injection 2 mg 03/03 sodium chloride 0.9% infusion 1 03/03/2022 Consult Count Last Ordered Date First Orde red Date IP CONSULT TO VASCULAR SURGERY 1 03/03/2022 documented in this encounter Care Teams Clay Caster Relationship Specialty Start Date End Date Rsos Espinosa MD [address] [place] [address] PCP - General 03/03/22 04/07/22 documented as of this encounter
--- OUTSIDE RECORDS SUMMARY | 2024-09-12 15:41 | XMS_ITS | Encounter Summary ---
Author Organization [facility] Address [address] [place] [address] Phone Care Team Providers Care Top Lift Compresser Name Role Phone Ross Espinosa MD Primary Care Provider [phone] Daniela Hilario ARCHITECTURAL ADMINISTRATIVE ASSISTANT Unavailable [phone] Encounter Details Date Type Department Care Team (Late st Contact Info) Description 03/30/2022 Telephone [facility] Surgery [address], [place] [address] [place] [address] [facility] [address] [place] [address] Social History Tobacco Use Types [...] CDT Gender Identity Male 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 HILARIO OFFICE 03/26/22. WAITING ON RESPONSE documented in this encounter Plan of Treatment Not on file documented as of this encounter Visit Diagnoses Not on filedocumented in this encounter Care Teams Top Lift Compresser Relationship Specialty Start Date End Date Ross Espinosa MD [address] [place] [address] PCP - General 03/03/22 04/07/22 Daniela Hilario NP [address] [place] [address] Nurse Practitioner Nurse Practitioner 03/26/22 documented as of this encounter
--- OUTSIDE RECORDS SUMMARY | 2024-09-12 15:41 | XMS_ITS | Encounter Summary ---
Author Organization [facility] Address [address] [place] [address] Care Team Providers Care Activities Attendant Name Role Phone Ross Espinosa MD Primary Care Provider [phone] Encounter Details Date Type Department Care Team (Late st Contact Info) Description 12/30/2021 Telephone [facility] Cardiology [address] [place] [address] Josiah Lay MD [address] [place] [id number] Social History Tobacco Use Types Packs/Day Years Used Date Smoking Tobacco: Former Cigarettes Q uit: 08/22/2009 Smokeless Tobacco: Never Sex and Gender Information Value Date Recorded Sex Assigned at Not on file Legal Sex Male 1:43 PM CDT Gender Identity Male 08/12/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 Patient aware and agreeable. * Telephone Encounter - Emely Duke RN - 12/30/2021 12:11 PM CDT Pt scheduled for peripheral angiogram at [facility] with DK on 02/04/22 at 10:00. Pt was offered 01/28 and 01/29 but pt unable to schedule those days. Pt to arrive at [facility] at 7:00. DK requests NS @ 150ml/hr for at least 2 hours prior to procedure. Pt advised to hold xarelto for 2 days prior to procedure lastdose on 02/01. Pt to also hold furosemide the morning of. Pt will have labs drawn at 3 days prior. Instructions reviewed and written instructions sent with pt. Pt verbalizes understanding and advised to call the office with any questions. Will forward to DK, as he will check schedule for a sooner appt for pt if possible. Pt scheduled tosee healthcare network pricing consultant on 01/13. documented in this encounter Plan of Treatment Scheduled Orders Name Type Priority Associated Diagnoses Orde r Schedule CBC with auto differential Lab Routine Pain in both lower extremities Pre-operative exam PVD (peripheral vascular disease) (CMS/HCC) ([facility]) Expected: 01/29/2022, Expires: 12/30/2022 Comprehensive metabolic panel Lab Routine Pain in both lower extremities Pre-operative exam PVD (peripheral vascular disease) (CMS/HCC) (HCC) Expected: 01/29/2022, Expires: 12/30/2022 Protime-INR Lab Routine Pain in both lower extremities Pre-operative exam PVD (peripheral vascular disease) (CMS/HCC) (HCC) Expected: 01/29/2022, Expires: 12/30/2022 documented as of this encounter Visit Diagnoses Diagnosis Pain in both lower extremities- Primary Pre-operative exam Unspecified pre-operative examination PVD (peripheral vascular disease) (HCC) Unspecified peripheral vascular disease documented in this encounter Care Teams Activities Attendant Relationship Specialty Start Date End Date Ross Espinosa MD [address] [place] [address] PCP - General 06/11/21 03/02/22 documented as of this encounter
--- OUTSIDE RECORDS SUMMARY | 2024-09-12 15:42 | XMS_ITS | Encounter Summary ---
Author Organization [facility] Address [address] [place] [address] Phone Care Team Providers Care Online Education Manager Name Role Phone Ross Espinosa MD Primary Care Provider [phone] Reason for Visit * Auth/Cert Specialty Diagnoses / Procedures Referred By Bintaac t Referred To Contact Referral ID Status Reason Start Date Expiration Date Visits Re quested Visits Authorized [id number] 1 1 Encounter Details Date Type Department Care Team (Late st Contact Info) Description 08/04/2021 Home Care Visit [facility] [address] [address] [address] [address] [place] [address] Galileo Rubalcava, YS TRAVEL SCREENING CASE COMMUNICATION Social History Tobacco Use Types Packs/Day Years Used Date Smoking Tobacco: Former Cigarettes Q uit: 08/22/2009 Smokeless Tobacco: Never Sex and Gender Information Value Date Recorded Sex Assigned at Not on file Legal Sex Male 1:43 PM CDT Gender Identity Male 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
--- OUTSIDE RECORDS SUMMARY | 2024-09-12 15:42 | XMS_ITS | Encounter Summary ---
Author Organization [facility] Address [address] [place] [address] Phone Care Team Providers Care Bilingual Instructor Name Role Phone Ross Espinosa MD Primary Care Provider [phone] [phone] Encounter Details Date Type Department Care Team (Late st Contact Info) Description 07/22/2021 Telephone [facility] Infectious Diseases [address] [place] [address] [address] [place] [address] Nita Miller, [facility] Social History Tobacco Use Types Packs/Day Years Used Date Smoking Tobacco: Former Cigarettes Q uit: 08/22/2009 Smokeless Tobacco: Never Sex and Gender Information Value Date Recorded Sex Assigned at Not on file Legal Sex Male 1:43 PM CDT Gender Identity Male 08/12/2022 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 S BINDER * Telephone Encounter - Jacey Holloway NP - 07/23/2021 8:29 AM BOOKS BINDER Yes, if they are able to pull it while he is in the hospital that would be great. We had transitioned him to oral after his CT. Hope he is doing better. Thank you, Jacey Holloway S BINDER * Telephone Encounter - Shanice George - 07/22/2021 3:11 PM CST Jacey OK to remove? Danny Prasad S BINDER * Telephone Encounter - Nita Miller - 07/22/2021 3:02 PM CST Regarding when the PICC line will be remove, pt is in the hospital, Dr wants to know if he can pullit while he is there, please call Bianka at [phone] S BINDER documented in this encounter Plan of Treatment Not on file documented as of this encounter Visit Diagnoses Not on filedocumented in this encounter Care Teams Bilingual Instructor Relationship Specialty Start Date End Date Ross Espinosa MD [address] [place] [address] PCP - General 06/11/21 03/02/22 documented as of this encounter
--- OUTSIDE RECORDS SUMMARY | 2024-09-12 15:42 | XMS_ITS | Encounter Summary ---
Author Organization [facility] Address [address] [place] [address] Phone Care Team Providers Care Hotel Staff Member Name Role Phone Ross Espinosa MD Primary Care Provider [phone] [phone] Reason for Visit * Auth/Cert Specialty Diagnoses / Procedures Referred By Jovany t Referred To Contact Referral ID Status Reason Start Date Expiration Date Visits Re quested Visits Authorized [id number] 1 1 Encounter Details Date Type Department Care Team (Late st Contact Info) Description 08/04/2021 Home Care Visit [facility] Home Health [address] [address] [address] [place] [address] Galileo Rubalcava, SY TELEPHONE ENCOUNTER Social History Tobacco Use Types Packs/Day Years Used Date Smoking Tobacco: Former Cigarettes Q uit: 08/22/2009 Smokeless Tobacco: Never Sex and Gender Information Value Date Recorded Sex Assigned at Not on file Legal Sex Male 1:43 PM CDT Gender Identity Male 08/12/2022 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
--- OUTSIDE RECORDS SUMMARY | 2024-09-12 15:42 | XMS_ITS | Encounter Summary ---
Author Organization [facility] Address [address] [place] [address] Phone Care Team Providers Care Mate Fishing Vessel Name Role Phone Ross Espinosa MD Primary Care Provider [phone] [phone] Reason for Visit * Auth/Cert Specialty Diagnoses / Procedures Referred By Jovany t Referred To Contact Referral ID Status Reason Start Date Expiration Date Visits Re quested Visits Authorized [id number] 1 1 Encounter Details Date Type Department Care Team (Late st Contact Info) Description 07/31/2021 Home Care Visit [facility] Home Health [address] [address] [address] [place] [address] Yani Frye RN TELEPHONE ENCOUNTER Social History Tobacco Use Types Packs/Day Years Used Date Smoking Tobacco: Former Cigarettes Q uit: 08/22/2009 Smokeless Tobacco: Never Sex and Gender Information Value Date Recorded Sex Assigned at Not on file Legal Sex Male 1:43 PM CDT Gender Identity Male 08/12/2022 2:14 PM DECAL CUTTER Sexual Orientation Not on file documented as of this encounter Plan of Treatment Not on file documented as of this encounter Visit Diagnoses Not on filedocumented in this encounter Care Teams Mate Fishing Vessel Relationship Specialty Start Date End Date Ross Espinosa MD [address] [place] [address] PCP - General 06/11/21 03/02/22 documented as of this encounter
--- OUTSIDE RECORDS SUMMARY | 2024-09-12 15:42 | XMS_ITS | Encounter Summary ---
Author Organization [facility] Home Care [facility] es Address [address] [place] [address] Phone Care Team Providers Care Material Requirements Worker Name Role Phone Ross Espinosa MD Primary Care Provider [phone] [phone] Reason for Visit * Auth/Cert Specialty Diagnoses / Procedures Referred By Jovany carver Referred To Contact Referral ID Status Reason Start Date Expiration Date Visits Re quested Visits Authorized [id number] 1 1 Encounter Details Date Type Department Care Team (Latest Contact Info) Description 08/04/2021 9:00 AM ADOPTION MANAGER Home Care Visit [facility] [address] [place] [address] Galileo Rubalcava, SY PT DISCIPLINE DISCHARGE Social History Tobacco Use Types Packs/Day Years Used Date Smoking Tobacco: Former Cigarettes Q uit: 08/22/2009 Smokeless Tobacco: Never Sex and Gender Information Value Date Recorded Sex Assigned at Not on file Legal Sex Male 1:43 PM CDT Gender Identity Male 08/12/2022 2:14 PM ADOPTION MANAGER Sexual Orientation Not on file documented as of this encounter Last Filed Vital Signs Vital Sign Reading Time Taken Comments Blood Pressure 134/76 08/04/2021 9:35 AM ADOPTION MANAGER Pulse 74 08/04/2021 9:35 AM ADOPTION MANAGER Temperature 36.2 ??C (97.2 ??F) 08/04/2021 9:35 AM CS T Respiratory Rate 18 08/04/2021 9:35 AM ADOPTION MANAGER Oxygen Saturation 94% 08/04/2021 9:35 AM ADOPTION MANAGER Inhaled Oxygen Concentration - - Weight - - Height - - Body Mass Index - - documented in this encounter Plan of Treatment Not on file documented as of this encounter Visit Diagnoses Not on filedocumented in this encounter Home Health Visit - Care Plan Visit Details Visit Type -PT Discipline Carla yanes Discipline -Physical Therapy Problems Problem Description Start Date Status Goals Interventions Homebound Status Disciplines: Alf, Physical Therapy, Occupational Therapy, Home Health Aide, Medical Social Work Patient's homebound status 06/25/2021 Resolved on 08/04/2021 1 goal linked to scheduled/documen darrion intervention 1 goal intervention scheduled/documen darrion in this visit Monitor patient's vital signs every home health visit Disciplines: Alf, Physical Therapy, Occupational Therapy, Home Health Aide Monitor patient's vital signs every home health visit. 06/25/2021 Resolved on 08/04/2021 1 goal linked to scheduled/documen darrion intervention 1 goal intervention scheduled/documen darrion in this visit Safety concerns Disciplines: Alf, Physical Therapy, Occupational Therapy, Home Health Aide, Medical Social Work Alteration in safety 06/25/2021 Resolved on 08/04/2021 1 goal linked to scheduled/documen darrion intervention 2 goal interventions scheduled/documen darrion in this visit PT Impaired Functional Mobility/Balance Disciplines: Physical Therapy Impaired functional mobility/balanc e 06/29/2021 Active 4 goals linked to scheduled/documen darrion interventions 5 problem interventions scheduled/documen darrion in this visit Goals Goal Associated Problem Outcome Goal Met? Visit Notes Patient recieves care at the most appropriate care setting Description: Patient receives care at the most appropriate care setting. Homebound Status No Measure vital signs during every home health visit during episode of care Description: Home educational speech language clinician to measure vital signs during every home health visit during episode of care. Monitor patient's vital signs every home health visit No Demonstrate use of safety precautions Description: Demonstrate use of safety precautions Safety concerns No Improvement with Transfers Description: transfers without assist safely from a variety of household surfaces consistently including edge of bed, toilet, chair, vehicle, shower. Improve FTSTS: from 29 seconds with bilat UE assit at IE to 24 seconds with UE assist as needed. PT Impaired Functional Mobility/Balance Adequate for Discharge No patient is currently indepndent with basic home transfers. FTSTS - improved to 26 seconds today. Did not achieve goal, but adequate for d/c Improvement in Gait/Stair Training Description: Patient will ambulate 300+ feet in home using device as needed and no assist by discharge. Patient will negotiate 2-3 steps using device as needed and caregiver assist out of home to access transportation/commu nity activities/basement by discharge. Improve TUG from 50 seconds at IE to 38 seconds. PT Impaired Functional Mobility/Balance Adequate for Discharge No patient ambulates approximately 150 feet today unders spv for safety. self reports ability to walk further, reports walking outside to trunk yesterday. patient able to safely negotiate stairs at this time with spv. Improvement with balance Description: Improve Tinetti score from to by therapy discharge. Improve balance during ADL's, IADL's, functional mobility as evidenced by no falls with injury during HomeCare episode. PT Impaired Functional Mobility/Balance Completed Yes tinetti Performance with HEP Description: Patient/caregiver to be independent with progressed HEP by therapy discharge. PT Impaired Functional Mobility/Balance Completed Yes Interventions Intervention Associated Problem/Goal Status Variance Visit Notes Homebound Status Description: Patient is homebound due to sob with minimal exertion, needs assist of one and walker to leave home and needs frequent rest breaks. Problem:Homebound Status Goal:Patient recieves care at the most appropriate care setting Completed Patient is homebound due to sob with minimal exertion, needs assist of one and walker to leave home and needs frequent rest breaks. Monitor Vital Signs Description: Monitor blood pressure, pulse, oxygen saturation, respirations Problem:Monitor patient's vital signs every home health visit Goal:Measure vital signs during every home health visit during episode of care Completed Instruct Fall Prevention Description: Instruct patient/caregiver in methods to prevent falls Problem:Safety concerns Goal:Demonstrate use of safety precautions Completed Patient educated to maintain clear pathways and good lighting, remove throw rugs, keep pets in designated areas, use assistive device as needed/instructed and ask for assistance as appropriate. Patient reports clear understanding, provides safe verbalization/return demonstration of instruction. Assess safety Description: Assess patient safety Problem:Safety concerns Goal:Demonstrate use of safety precautions Completed Transfer training Description: Instruct patient/caregiver and perform transfer training. Problem:PT Impaired Functional Mobility/Balance Completed FTSTS - 26 seconds using UE assist Home Exercise Program (HEP) Description: Instruct patient/caregiver and perform HEP. Problem:PT Impaired Functional Mobility/Balance Completed instructed to continue HEP X 10-20 reps BID as tolerated. issued handouts for reference. patient verbalizes good understanding of instructions and provides safe verbalization/return demonstration of instructions. Gait/Stair Training Description: Instruct patient/caregiver and perform gait/stair training. Problem:PT Impaired Functional Mobility/Balance Completed instructed to rest as needed, gradually increase walking program as tolerated and use assistive device as needed for safety. patient verbalizes good understanding of instructions and provides safe verbalization/return demonstration of instructions. Balance Training/Activities Description: Instruct patient/caregiver and perform balance training activities. Problem:PT Impaired Functional Mobility/Balance Completed Therapeutic Exercise Description: Perform therapeutic exercise, progressing as tolerated. Problem:PT Impaired Functional Mobility/Balance Completed Standing calf raises, marches, hip abduction, hip extension, heel kicks x 5 bilateral lower extremities for final review of HEP. documented in this encounter Home Health Visit - Actions and Narratives Actions patient tolerates therapy we ll today without adverse reactions. Recently had catheter removed and no longer using AD. Patient believes he is doing well physically and requests discharge from homecare PT. Reviewed goals - patient has met all goals or adequate for discharge. Tinetti now , FTSTS - 26 seconds using UE assist. Patient does continue to demonstrate moderate strength, balance, and gait deficits, but has shown good improvement throughout therapy and would like to continue progressing independently. Therefore, patient is now discharged from skilled PT at this time. documented in this encounter Care Teams Material Requirements Worker Relationship Specialty Start Date End Date Ross Espinosa MD [address] [place] [address] PCP - General 06/11/21 03/02/22 documented as of this encounter
--- OUTSIDE RECORDS SUMMARY | 2024-09-12 15:42 | XMS_ITS | Encounter Summary ---
Author Organization [facility] es Address [address] [place] [address] Phone Care Team Providers Care Manager Application Name Role Phone Ross Espinosa MD Primary Care Provider [phone] [phone] Reason for Visit * Reason Comments Shortness of Breath * Auth/Cert Specialty Diagnoses / Procedures Referred By Contac t Referred To Contact Referral ID Status Reason Start Date Expiration Date Visits Re quested Visits Authorized [id number] 1 1 Encounter Details Date Type Department Care Team (Late st Contact Info) Description 07/28/2021 1:00 PM KNIFE SETTER GRINDER MACHINE Home Care Visit [facility] [address] [address] [address] [place] [address] Kierra Gandara, PT PT REASSESSMENT Social History Tobacco Use Types Packs/Day Years Used Date Smoking Tobacco: Former Cigarettes Q uit: 08/22/2009 Smokeless Tobacco: Never Sex and Gender Information Value Date Recorded Sex Assigned at Not on file Legal Sex Male 1:43 PM CDT Gender Identity Male 08/12/2022 2:14 PM KNIFE SETTER GRINDER MACHINE Sexual Orientation Not on file documented as of this encounter Last Filed Vital Signs Vital Sign Reading Time Taken Comments Blood Pressure 138/78 07/28/2021 12:00 AM KNIFE SETTER GRINDER MACHINE Pulse 95 07/28/2021 12:00 AM KNIFE SETTER GRINDER MACHINE Temperature 36 ??C (96.8 ??F) 07/28/2021 12:00 AM KNIFE SETTER GRINDER MACHINE Respiratory Rate 18 07/28/2021 12:00 AM KNIFE SETTER GRINDER MACHINE Oxygen Saturation 97% 07/28/2021 12:00 AM KNIFE SETTER GRINDER MACHINE Inhaled Oxygen Concentration - - Weight - - Height - - Body Mass Index - - documented in this encounter Plan of Treatment Not on file documented as of this encounter Visit Diagnoses Not on filedocumented in this encounter Home Health Visit - Care Plan Visit Details Visit Type -PT Reassessment Discipline -Physical Therapy Problems Problem Description Start Date Status Goals Interventions Homebound Status Disciplines: Prison, Physical Therapy, Occupational Therapy, Home Health Aide, Medical Social Work Patient's homebound status 06/25/2021 Active 1 goal linked to scheduled/docume nted intervention 1 goal intervention scheduled/documen darrion in this visit Monitor patient's vital signs every home health visit Disciplines: Prison, Physical Therapy, Occupational Therapy, Home Health Aide Monitor patient's vital signs every home health visit. 06/25/2021 Active 1 goal linked to scheduled/docume nted intervention 1 goal intervention scheduled/documen darrion in this visit Safety concerns Disciplines: Prison, Physical Therapy, Occupational Therapy, Home Health Aide, Medical Social Work Alteration in safety 06/25/2021 Active 1 goal linked to scheduled/docume nted intervention 2 goal interventions scheduled/documen darrion in this visit [place] Precautions Disciplines: Prison, Physical Therapy, Occupational Therapy, Home Health Aide, Medical Social Work [place] Precautions 06/25/2021 Active 1 goal linked to scheduled/docume nted intervention 1 goal intervention scheduled/documen darrion in this visit Knowledge Deficit - Wound Care Disciplines: Prison, Physical Therapy, Occupational Therapy, Home Health Aide Deficiency of cognitive information related to wound care 06/25/2021 Resolved on 07/28/2021 1 goal linked to scheduled/docume nted intervention 1 goal intervention scheduled/documen darrion in this visit PT Impaired Functional Mobility/Balance Disciplines: Physical Therapy Impaired functional mobility/balance 06/29/2021 Active - 4 problem interventions scheduled/documen darrion in this visit Goals Goal Associated Problem Outcome Goal Met? Visit Notes Patient recieves care at the most appropriate care setting Description: Patient receives care at the most appropriate care setting. Homebound Status No Measure vital signs during every home health visit during episode of care Description: Home power plant operator apprentice to measure vital signs during every home health visit during episode of care. Monitor patient's vital signs every home health visit No Demonstrate use of safety precautions Description: Demonstrate use of safety precautions Safety concerns No Demonstrate knowledge of universal precautions Description: Demonstrate knowledge of universal precautions [place] Precautions No Knowledgeable on Woundcare Description: Patient/caregiver will be knowledgeable on woundcare procedure, wound healing and when to seek medical attention by 06.26.2021. Knowledge Deficit - Wound Care No Interventions Intervention Associated Problem/Goal Status Variance Visit [...] concerns Goal:Demonstrate use of safety precautions Completed Assess safety Description: Assess patient safety Problem:Safety concerns Goal:Demonstrate use of safety precautions Completed Aspects of Care Description: Instruct patient/caregiver on universal precautions and home infection control measures Problem:[place] Precautions Goal:Demonstrate knowledge of universal precautions Completed Wound care Description: Wash left back surgical site with soap and water daily and pat dry. Leave open to air. May cover with dry dressing and secure with tape daily, if has drainage and as needed if becomes soiled or dislodged. Wound care by Sn/pt/caregiver. Problem:Knowledge Deficit - Wound Care Goal:Knowledgeable on Woundcare Scheduled Transfer training Description: Instruct patient/caregiver and perform transfer training. Problem:PT Impaired Functional Mobility/Balance Completed Home Exercise Program (HEP) Description: Instruct patient/caregiver and perform HEP. Problem:PT Impaired Functional Mobility/Balance Completed Gait/Stair Training Description: Instruct patient/caregiver and perform gait/stair training. Problem:PT Impaired Functional Mobility/Balance Completed Therapeutic Exercise Description: Perform therapeutic exercise, progressing as tolerated. Problem:PT Impaired Functional Mobility/Balance Completed documented in this encounter Home Health Visit - Actions and Narratives Actions [id number], eff [id number] blaire at 0904 am Narratives Patient referred to HH PT fo r resumption of care following a hospitalization for acute respiratory failure. PMH includes s/p L thoracotomy due to emphysema 06/2021, afib with pacemaker, PVD, COPD, CKD4 and anemia as well as urinary retention with kumari catheter PLOF includes modified ind for transfers adn gait without an assitive device. Patient was driving and active in the community. documented in this encounter Care Teams Manager Application Relationship Specialty Start Date End Date Ross Espinosa MD [address] [place] [address] PCP - General 06/11/21 03/02/22 documented as of this encounter
--- OUTSIDE RECORDS SUMMARY | 2024-09-12 15:42 | XMS_ITS | Encounter Summary ---
Author Organization [facility] Address [address] [place] [address] Phone Care Team Providers Care Sandwich Wrapper Name Role Phone Ross Espinosa MD Primary Care Provider [phone] [phone] Encounter Details Date Type Department Care Team (Late st Contact Info) Description 07/20/2021 Orders Only [facility] Infectious Diseases [address] [place] [address] [address] [place] [id number] Jacey Holloway NP [address] [place] [address] Social History Tobacco Use Types Packs/Day Years Used Date Smoking Tobacco: Former Cigarettes Q uit: 08/22/2009 Smokeless Tobacco: Never Sex and Gender Information Value Date Recorded Sex Assigned at Not on file Legal Sex Male 1:43 PM CDT Gender Identity Male 08/12/2022 2:14 PM MECHANIC/WELDER Sexual Orientation Not on file documented as of this encounter Ordered Prescriptions Prescription Sig Dispense Quantity Refills Last Filled Start Date End Date cephalexin (KEFLEX) 500 mg capsuleIndications :per md/certified lactation counselor advisement Take 1 capsule (500 mg total) by mouth every 8 (eight) hours for 14 days Take 1 capsule (500mg total) by mouth every 8 hours for 14 days beginning 07/10/21. 42 capsule 07/20/2021 documented in this encounter Progress Notes * Jacey Holloway NP - 07/20/2021 9:00 AM CST CrCl >=30 mL/minute: No dosage adjustment necessary for abx. ANIC/WELDER documented in this encounter Plan of Treatment Not on file documented as of this encounter Visit Diagnoses Not on filedocumented in this encounter Discontinued Medications Medication Sig Discontinue Reason Start Date End Da te cephalexin (KEFLEX) 500 mg capsuleIndications:Emp yema ([facility]) ([facility]) [The details of the medication are not available because there are pending changes by a home health clinician.] Reorder 07/10/2021 07/20/2021 cephalexin (KEFLEX) 500 mg capsuleIndications:Emp yema ([facility]) ([facility]) [The details of the medication are not available because there are pending changes by a home health clinician.] Reorder 07/10/2021 07/20/2021 documented as of this encounter Care Teams Sandwich Wrapper Relationship Specialty Start Date End Date Ross Espinosa MD [address] [place] [address] PCP - General 06/11/21 03/02/22 documented as of this encounter
--- OUTSIDE RECORDS SUMMARY | 2024-09-12 15:42 | XMS_ITS | Encounter Summary ---
Author Organization [facility] Address [address] [place] [address] Care Team Providers Care Diagnostic Assistant Name Role Phone Ross Espinosa MD Primary Care Provider [phone] [phone] Encounter Details Date Type Department Care Team (Late st Contact Info) Description 07/20/2021 Orders Only [facility] Cardiology [address] [place] [id number] Talon Good MD [address] [place] [address] Social History Tobacco Use Types Packs/Day Years Used Date Smoking Tobacco: Former Cigarettes Q uit: 08/22/2009 Smokeless Tobacco: Never Sex and Gender Information Value Date Recorded Sex Assigned at Not on file Legal Sex Male 1:43 PM CDT Gender Identity Male 08/12/2022 2:14 PM COMPUTER SYSTEMS SOFTWARE ENGINEER Sexual Orientation Not on file documented as of this encounter Plan of Treatment Not on file documented as of this encounter Procedures Procedure Name Priority Date/Time Associated Diagnosis Comments CARDIOLOGY DOCUMENT SCAN Routine 07/20/2021 documented in this encounter Results * SCAN - CARDIOLOGY (07/20/2021) Anatomical Region Laterality Modality Other us Talon Good MD CV CARDIAC SERVICES PROC EDURES Final Result documented in this encounter Visit Diagnoses Not on filedocumented in this encounter Care Teams Diagnostic Assistant Relationship Specialty Start Date End Date Ross Espinosa MD [address] [place] [address] PCP - General 06/11/21 03/02/22 documented as of this encounter
--- OUTSIDE RECORDS SUMMARY | 2024-09-12 15:42 | XMS_ITS | Encounter Summary ---
Author Organization [facility] Address [address] [place] [address] Phone Care Team Providers Care Carpet Sewing Machine Operator Name Role Phone Ross Espinosa MD Primary Care Provider [phone] [phone] Reason for Visit * Auth/Cert Specialty Diagnoses / Procedures Referred By Jovany t Referred To Contact Referral ID Status Reason Start Date Expiration Date Visits Re quested Visits Authorized [id number] 1 1 Encounter Details Date Type Department Care Team (Late st Contact Info) Description 07/24/2021 Home Care Visit [facility] Home Health [address] [address] [address] [place] [address] Giuliana Rivera RN CASE COMMUNICATION Social History Tobacco Use Types Packs/Day Years Used Date Smoking Tobacco: Former Cigarettes Q uit: 08/22/2009 Smokeless Tobacco: Never Sex and Gender Information Value Date Recorded Sex Assigned at Not on file Legal Sex Male 1:43 PM CDT Gender Identity Male 08/12/2022 2:14 PM TURBO OPERATOR Sexual Orientation Not on file documented as of this encounter Plan of Treatment Not on file documented as of this encounter Visit Diagnoses Not on filedocumented in this encounter Care Teams Carpet Sewing Machine Operator Relationship Specialty Start Date End Date Ross Espinosa MD [address] [place] [address] PCP - General 06/11/21 03/02/22 documented as of this encounter
--- OUTSIDE RECORDS SUMMARY | 2024-09-12 15:42 | XMS_ITS | Encounter Summary ---
Author Organization [facility] Address [address] [place] [address] Phone Care Team Providers Care Scout Name Role Phone Ross Espinosa MD Primary Care Provider [phone] [phone] Reason for Visit * Auth/Cert Specialty Diagnoses / Procedures Referred By Jovany t Referred To Contact Referral ID Status Reason Start Date Expiration Date Visits Re quested Visits Authorized [id number] 1 1 Encounter Details Date Type Department Care Team (Late st Contact Info) Description 07/20/2021 1:30 PM RETAIL ASSOCIATE Home Care Visit [facility] Health [address] [address] [address] [place] [address] Estela Oshea COTA CASE COMMUNICATION Social History Tobacco Use Types Packs/Day Years Used Date Smoking Tobacco: Former Cigarettes Q uit: 08/22/2009 Smokeless Tobacco: Never Sex and Gender Information Value Date Recorded Sex Assigned at Not on file Legal Sex Male 1:43 PM CDT Gender Identity Male 08/12/2022 2:14 PM RETAIL ASSOCIATE Sexual Orientation Not on file documented as of this encounter Plan of Treatment Not on file documented as of this encounter Visit Diagnoses Not on filedocumented in this encounter Care Teams Scout Relationship Specialty Start Date End Date Ross Espinosa MD [address] [place] [address] PCP - General 06/11/21 03/02/22 documented as of this encounter
--- OUTSIDE RECORDS SUMMARY | 2024-09-12 15:42 | XMS_ITS | Encounter Summary ---
Author Organization [facility] Home Care [facility] es Address [address] [place] [address] Phone Care Team Providers Care Propeller Tester Name Role Phone Ross Espinosa MD Primary Care Provider [phone] [phone] Reason for Visit * Auth/Cert Specialty Diagnoses / Procedures Referred By Jovany t Referred To Contact Referral ID Status Reason Start Date Expiration Date Visits Re quested Visits Authorized [id number] 1 1 Encounter Details Date Type Department Care Team (Late st Contact Info) Description 07/20/2021 Home Care Visit [facility] Home Health - [address] [address] [address] [place] [address] Giuliana Rivera RN SN OASIS TRANSFER W/OUT DC Social History Tobacco Use Types Packs/Day Years Used Date Smoking Tobacco: Former Cigarettes Q uit: 08/22/2009 Smokeless Tobacco: Never Sex and Gender Information Value Date Recorded Sex Assigned at Not on file Legal Sex Male 1:43 PM CDT Gender Identity Male 08/12/2022 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 Sexual Orientation Not on file documented as of this encounter Plan of Treatment Not on file documented as of this encounter Visit Diagnoses Not on filedocumented in this encounter Home Health Visit - Care Plan Visit Details Visit Type -SN OASIS Transfe r w/o DC Discipline -Fci Problems Problem Description Start Date Status Goals Interve ntions Homebound Status Disciplines: Fci, Physical Therapy, Occupational Therapy, Home Health Aide, Medical Social Work Patient's homebound status 06/25/2021 Active 1 goal linked to scheduled/docume nted intervention 1 goal intervention scheduled/documen darrion in this visit Monitor patient's vital signs every home health visit Disciplines: Fci, Physical Therapy, Occupational Therapy, Home Health Aide Monitor patient's vital signs every home health visit. 06/25/2021 Active 1 goal linked to scheduled/docume nted intervention 1 goal intervention scheduled/documen darrion in this visit Knowledge Deficit - Wound Care Disciplines: Fci, Physical Therapy, Occupational Therapy, Home Health Aide Deficiency of cognitive information related to wound care 06/25/2021 Active 1 goal linked to scheduled/docume nted intervention 1 goal intervention scheduled/documen darrion in this visit Goals Goal Associated Problem Outcome Goal Met? Visit Notes Patient recieves care at the most appropriate care setting Description: Patient receives care at the most appropriate care setting. Homebound Status No Measure vital signs during every home health visit during episode of care Description: Home support staff to measure vital signs during every home health visit during episode of care. Monitor patient's vital signs every home health visit No Knowledgeable on Woundcare Description: Patient/caregiver will [...] care at the most appropriate care setting Scheduled Monitor Vital Signs Description: Monitor blood pressure, pulse, oxygen saturation, respirations Problem:Monitor patient's vital signs every home health visit Goal:Measure vital signs during every home health visit during episode of care Scheduled Wound care Description: Wash left back surgical site with soap and water daily and pat dry. Leave open to air. May cover with dry dressing and secure with tape daily, if has drainage and as needed if becomes soiled or dislodged. Wound care by Sn/pt/caregiver. Problem:Knowledge Deficit - Wound Care Goal:Knowledgeable on Woundcare Scheduled documented in this encounter Care Teams Propeller Tester Relationship Specialty Start Date End Date Ross Espinosa MD [address] [place] [address] PCP - General 06/11/21 03/02/22 documented as of this encounter
--- OUTSIDE RECORDS SUMMARY | 2024-09-12 15:42 | XMS_ITS | Encounter Summary ---
Author Organization [facility] Home Care [facility] Address [address] [place] [address] Phone Care Team Providers Care Web Content Coordinator Name Role Phone Ross Espinosa MD Primary Care Provider [phone] Reason for Visit * Auth/Cert Specialty Diagnoses / Procedures Referred By Jovany t Referred To Contact Referral ID Status Reason Start Date Expiration Date Visits Re quested Visits Authorized [id number] 1 1 Encounter Details Date Type Department Care Team (Late st Contact Info) Description 07/31/2021 Home Care Visit [facility] Home Health [address] [address] [address] [place] [address] Galileo Rubalcava, CARE CONFERENCE Social History Tobacco Use Types Packs/Day Years Used Date Smoking Tobacco: Former Cigarettes Q uit: 08/22/2009 Smokeless Tobacco: Never Sex and Gender Information Value Date Recorded Sex Assigned at Not on file Legal Sex Male 1:43 PM CDT Gender Identity Male 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
--- OUTSIDE RECORDS SUMMARY | 2024-09-12 15:42 | XMS_ITS | Encounter Summary ---
Author Organization [facility] Home Care Servic es Address [address] [place] [address] Phone Care Team Providers Care Grip Wrapper Name Role Phone Ross Espinosa MD Primary Care Provider [phone] Reason for Visit * Auth/Cert Specialty Diagnoses / Procedures Referred By Jovany carver Referred To Contact Referral ID Status Reason Start Date Expiration Date Visits Re quested Visits Authorized [id number] 1 1 Encounter Details Date Type Department Care Team (Latest Contact Info) Description 07/25/2021 9:00 AM BILLING SERVICES MANAGER Home Care Visit [facility] Health [address] [address] [address] [place] [address] Briana Ornelas RN SN OASIS RESUMPTION OF CARE Social History Tobacco Use Types Packs/Day Years Used Date Smoking Tobacco: Former Cigarettes Q uit: 08/22/2009 Smokeless Tobacco: Never Sex and Gender Information Value Date Recorded Sex Assigned at Not on file Legal Sex Male 1:43 PM CDT Gender Identity Male 08/12/2022 2:14 PM 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 SERVICES 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 Sexual Orientation Not on file documented as of this encounter Last Filed Vital Signs Vital Sign Reading Time Taken Comments Blood Pressure 138/74 07/25/2021 9:36 AM BILLING SERVICES MANAGER Pulse 90 07/25/2021 9:36 AM BILLING SERVICES MANAGER Temperature 36.3 ??C (97.3 ??F) 07/25/2021 9:36 AM CS T Respiratory Rate 20 07/25/2021 9:36 AM BILLING SERVICES MANAGER Oxygen Saturation 96% 07/25/2021 9:36 AM BILLING SERVICES MANAGER Inhaled Oxygen Concentration - - Weight - - Height - - Body Mass Index - - documented in this encounter Plan of Treatment Not on file documented as of this encounter Visit Diagnoses Not on filedocumented in this encounter Home Health Visit - Care Plan Visit Details Visit Type -SN OASIS Resumpt ion of Care Discipline -Fci Problems Problem Description Start Date [...] visit during episode of care Description: Home senior outside sales representative to measure vital signs during every home [...] health visit during episode of care Completed VSS. Afebrile. 02 sat 96% on 2L Wound care Description: Wash left back surgical site with soap and water daily and pat dry. Leave open to air. May cover with dry dressing and secure with tape daily, if has drainage and as needed if becomes soiled or dislodged. Wound care by Sn/pt/caregiver. Problem:Knowledge Deficit - Wound Care Goal:Knowledgeable on Woundcare Completed Left back surgical site is healed. documented in this encounter Home Health Visit - Actions and Narratives Narratives M1028 - Comorbidities and Co -existing Conditions ? Check all that apply See OASIS Guidance Manual for a complete list of relevant ICD-10 codes Documented Answer: Recommendation: 1 - Active Diagnoses - PVD or PAD; 2 - Diabetes Mellitus M1810 - Current Ability to Dress Upper Body safely (with or without dressing aids) including undergarments, pullovers, front-opening shirts and blouses, managing zippers, buttons, and snaps Documented Answer: 1 - Able to dress upper body without assistance if clothing is laid out or handed to the patient. Recommendation: 2 - Someone must help the patient put on upper body clothing. Reason: Clinical documentation reflects a MAHC-10 score greater than or equal to 4-patient is at risk for falls. For the purposes of this OASIS item, assistance includes verbal cuing and/or supervision. documented in this encounter Care Teams Grip Wrapper Relationship Specialty Start Date End Date Ross Espinosa MD [address] [place] [address] PCP - General 06/11/21 03/02/22 documented as of this encounter
--- OUTSIDE RECORDS SUMMARY | 2024-09-12 15:42 | XMS_ITS | Encounter Summary ---
Author Organization [facility] Address [address] [place] [address] Care Team Providers Care Director Of Cardiac Cath Lab Name Role Phone Ross Espinosa MD Primary Care Provider [phone] [phone] Encounter Details Date Type Department Care Team (Late st Contact Info) Description 07/18/2021 Orders Only [facility] Cardiology [address] [place] [address] Everton Rosa MD [address] [place] [address] [address] [address] [place] [address] Social History Tobacco Use Types Packs/Day Years Used Date Smoking Tobacco: Former Cigarettes Q uit: 08/22/2009 Smokeless Tobacco: Never Sex and Gender Information Value Date Recorded Sex Assigned at Not on file Legal Sex Male 1:43 PM CDT Gender Identity Male 08/12/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 Sexual Orientation Not on file documented as of this encounter Plan of Treatment Not on file documented as of this encounter Procedures Procedure Name Priority Date/Time Associated Diagnosis Comments CARDIOLOGY DOCUMENT SCAN Routine 07/18/2021 documented in this encounter Results * SCAN - CARDIOLOGY (07/18/2021) Anatomical Region Laterality Modality Other us Everton Rosa MD CV CARDIAC SERVICES PROCEDU RES Final Result documented in this encounter Visit Diagnoses Not on filedocumented in this encounter Care Teams Director Of Cardiac Cath Lab Relationship Specialty Start Date End Date Ross Espinosa MD [address] [place] [address] PCP - General 06/11/21 03/02/22 documented as of this encounter
--- OUTSIDE RECORDS SUMMARY | 2024-09-12 15:42 | XMS_ITS | Encounter Summary ---
Author Organization [facility] Address [address] [place] [address] Phone Care Team Providers Care Vein Pumper Name Role Phone Ross Espinosa MD Primary Care Provider [phone] [phone] Reason for Visit * Auth/Cert Specialty Diagnoses / Procedures Referred By Jovany t Referred To Contact Referral ID Status Reason Start Date Expiration Date Visits Re quested Visits Authorized [id number] 1 1 Encounter Details Date Type Department Care Team (Late st Contact Info) Description 07/31/2021 9:30 AM SYSTEM ARCHITECT Home Care Visit [facility] Health [address] [address] [address] [place] [address] Pam Peralta RN SN HOME VISIT Social History Tobacco Use Types Packs/Day Years Used Date Smoking Tobacco: Former Cigarettes Q uit: 08/22/2009 Smokeless Tobacco: Never Sex and Gender Information Value Date Recorded Sex Assigned at Not on file Legal Sex Male 1:43 PM CDT Gender Identity Male 08/12/2022 2:14 PM SYSTEM ARCHITECT Sexual Orientation Not on file documented as of this encounter Last Filed Vital Signs Vital Sign Reading Time Taken Comments Blood Pressure 100/60 07/31/2021 10:12 AM SYSTEM ARCHITECT Pulse 58 07/31/2021 10:12 AM SYSTEM ARCHITECT Temperature 36.4 ??C (97.5 ??F) 07/31/2021 10:[address] Respiratory Rate 18 07/31/2021 10:12 AM SYSTEM ARCHITECT Oxygen Saturation 96% 07/31/2021 10:12 AM SYSTEM ARCHITECT Inhaled Oxygen Concentration - - Weight 84.8 kg (187 lb) 07/31/2021 10:12 AM SYSTEM ARCHITECT Height 172.7 cm (5' 8) 07/31/2021 10:12 AM SYSTEM ARCHITECT Body Mass Index 28.43 07/31/2021 10:12 AM SYSTEM ARCHITECT documented in this encounter Plan of Treatment Not on file documented as of this encounter Visit Diagnoses Not on filedocumented in this encounter Home Health Visit - Care Plan Visit Details Visit Type -SN Home Visit Discipline -Senior Living Problems Problem Description Start Date Status Goals Interventions Homebound Status Disciplines: Senior Living, Physical Therapy, Occupational Therapy, Home Health Aide, Medical Social Work Patient's homebound status 06/25/2021 Active 1 goal linked to scheduled/docume nted intervention 1 goal intervention scheduled/docume nted in this visit Medications Disciplines: Senior Living, Physical Therapy, Occupational Therapy Management of home medications 06/25/2021 Active 1 goal linked to scheduled/docume nted intervention Oxygen Disciplines: Senior Living, Physical Therapy, Occupational Therapy, Home Health Aide Oxygen instruction and safety 06/25/2021 Active 1 goal linked to scheduled/docume nted intervention Monitor patient's vital signs every home health visit Disciplines: Senior Living, Physical Therapy, Occupational Therapy, Home Health Aide Monitor patient's vital signs every home health visit. 06/25/2021 Active 1 goal linked to scheduled/docume nted intervention 1 goal intervention scheduled/docume nted in this visit Infection Prevention Disciplines: Senior Living, Physical Therapy, Occupational Therapy, Home Health Aide Infection Prevention 06/25/2021 Active 1 goal linked to scheduled/docume nted intervention Standardized Guidelines Disciplines: Senior Living, Physical Therapy, Occupational Therapy, Home Health Aide, Medical Social Work Standardized Guidelines 06/25/2021 Active 1 goal linked to scheduled/docume nted intervention Aide Supervisory Visit Disciplines: Senior Living, Physical Therapy, Occupational Therapy Supervision of HH Aide 06/25/2021 Active 1 goal linked to scheduled/docume nted intervention Safety concerns Disciplines: Senior Living, Physical Therapy, Occupational Therapy, Home Health Aide, Medical Social Work Alteration in safety 06/25/2021 Active 1 goal linked to scheduled/docume nted intervention Anticoagulation Therapy Disciplines: Senior Living, Physical Therapy, Occupational Therapy Management of anticoagulation therapy 06/25/2021 Active 1 goal linked to scheduled/docume nted intervention [place] Precautions Disciplines: Senior Living, Physical Therapy, Occupational Therapy, Home Health Aide, Medical Social Work [place] Precautions 06/25/2021 Active 1 goal linked to scheduled/docume nted intervention Pain Disciplines: Senior Living, Physical Therapy, Occupational Therapy, Home Health Aide, Medical Social Work Alteration in comfort 06/25/2021 Active 1 goal linked to scheduled/docume nted intervention Safety concerns Disciplines: Senior Living Safety needs related to infusion administration 06/25/2021 Active 1 goal linked to scheduled/docume nted intervention Goals Goal Associated Problem Outcome Goal Met? Visit Notes Patient recieves care at the most appropriate care setting Description: Patient receives care at the most appropriate care setting. Homebound Status Progressing No Understand and follow medication therapy Description: Patient/caregiver will understand and follow prescribed medication therapy as evidence by having up to date medication list in home & ability to verbalize purpose, schedule, and side effects by the end of the episode of care Medications Progressing No Demonstrate safe oxygen usage Description: Patient/caregiver to verbalize and demonstrate safe oxygen usage by end of episode of care Oxygen Progressing No Measure vital signs during every home health visit during episode of care Description: Home videotape sales representative to measure vital signs during every home health visit during episode of care. Monitor patient's vital signs every home health visit Progressing No Verbalize signs of infection Description: Verbalize signs of infection Infection Prevention Progressing No Understanding of when to notify MD in absence of home care staff Description: Understanding of when to notify MD in absence of home care staff Standardized Guidelines Progressing No Complete aide supervisory visit Description: Complete aide supervisory visit. Aide Supervisory Visit Progressing No Demonstrate use of safety precautions Description: Demonstrate use of safety precautions Safety concerns Progressing No Demonstrate knowledge of anticoagulant therapy Description: Demonstrate knowledge of anticoagulant therapy. Anticoagulation Therapy Progressing No Demonstrate knowledge of universal precautions Description: Demonstrate knowledge of universal precautions [place] Precautions Progressing No Report that pain has been reduced or controlled Description: Report that pain has been reduced or controlled Pain Progressing No Verbalize emergency procedures, adverse reactions, and who to contact Description: Patient/caregiver will verbalize emergency procedures, adverse reactions and how to contact MD, RN or pharmacy throughout the episode of care. Safety concerns Progressing No Interventions Intervention Associated Problem/Goal Status Variance [...] health visit during episode of care Completed documented in this encounter Home Health Visit - Actions and Narratives Narratives patient has f/u appointment with urologist this afternoon. documented in this encounter Care Teams Vein Pumper Relationship Specialty Start Date End Date Ross Espinosa MD [address] [place] [address] PCP - General 06/11/21 03/02/22 documented as of this encounter
--- OUTSIDE RECORDS SUMMARY | 2024-09-12 15:42 | XMS_ITS | Encounter Summary ---
Author Organization [facility] Address [address] [place] [address] Care Team Providers Care Shoe Polisher Name Role Phone Ross Espinosa MD Primary Care Provider [phone] [phone] Encounter Details Date Type Department Care Team (Late st Contact Info) Description 07/22/2021 Orders Only [facility] Cardiology [address] [place] [id number] Kristin Colón MD [address] [place] [address] Social History Tobacco Use Types Packs/Day Years Used Date Smoking Tobacco: Former Cigarettes Q uit: 08/22/2009 Smokeless Tobacco: Never Sex and Gender Information Value Date Recorded Sex Assigned at Not on file Legal Sex Male 1:43 PM CDT Gender Identity Male 08/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 Sexual Orientation Not on file documented as of this encounter Plan of Treatment Not on file documented as of this encounter Procedures Procedure Name Priority Date/Time Associated Diagnosis Comments CARDIOLOGY DOCUMENT SCAN Routine 07/22/2021 documented in this encounter Results * SCAN - CARDIOLOGY (07/22/2021) Anatomical Region Laterality Modality Other Kristin Colón MD CV CARDIAC SERVICES PROCEDU RES Final Result documented in this encounter Visit Diagnoses Not on filedocumented in this encounter Care Teams Shoe Polisher Relationship Specialty Start Date End Date Ross Espinosa MD [address] [place] [address] PCP - General 06/11/21 03/02/22 documented as of this encounter
--- OUTSIDE RECORDS SUMMARY | 2024-09-12 15:42 | XMS_ITS | Encounter Summary ---
Author Organization [facility] Home Care Servic es Address [address] [place] [address] Phone Care Team Providers Care Breakfast Host Name Role Phone Ross Espinosa MD Primary Care Provider [phone] [phone] Reason for Visit * Auth/Cert Specialty Diagnoses / Procedures Referred By Jovany t Referred To Contact Referral ID Status Reason Start Date Expiration Date Visits Re quested Visits Authorized [id number] 1 1 Encounter Details Date Type Department Care Team (Late st Contact Info) Description 07/23/2021 Home Care Visit [facility] Home Health [address] [address] [address] [place] [address] Giuliana Rivera RN TELEPHONE ENCOUNTER Social History Tobacco Use Types Packs/Day Years Used Date Smoking Tobacco: Former Cigarettes Q uit: 08/22/2009 Smokeless Tobacco: Never Sex and Gender Information Value Date Recorded Sex Assigned at Not on file Legal Sex Male 1:43 PM CDT Gender Identity Male 08/12/2022 2:14 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
--- OUTSIDE RECORDS SUMMARY | 2024-09-12 15:42 | XMS_ITS | Encounter Summary ---
Author Organization [facility] Home Care Servic es Address [address] [place] [address] Phone Care Team Providers Care Heel Nailing Machine Operator Name Role Phone Ross Espinosa MD Primary Care Provider [phone] [phone] Reason for Visit * Auth/Cert Specialty Diagnoses / Procedures Referred By Jovany t Referred To Contact Referral ID Status Reason Start Date Expiration Date Visits Re quested Visits Authorized [id number] 1 1 Encounter Details Date Type Department Care Team (Late st Contact Info) Description 07/25/2021 Home Care Visit [facility] Home Health [address] [address] [address] [place] [address] Briana Ornelas RN CASE COMMUNICATION Social History Tobacco Use Types Packs/Day Years Used Date Smoking Tobacco: Former Cigarettes Q uit: 08/22/2009 Smokeless Tobacco: Never Sex and Gender Information Value Date Recorded Sex Assigned at Not on file Legal Sex Male 1:43 PM CDT Gender Identity Male 08/12/2022 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
--- OUTSIDE RECORDS SUMMARY | 2024-09-12 15:42 | XMS_ITS | Encounter Summary ---
Author Organization [facility] Home Care Servic es Address [address] [place] [address] Phone Care Team Providers Care Dental Equipment Technician Name Role Phone Ross Espinosa MD Primary Care Provider [phone] [phone] Reason for Visit * Auth/Cert Specialty Diagnoses / Procedures Referred By Jovany t Referred To Contact Referral ID Status Reason Start Date Expiration Date Visits Re quested Visits Authorized [id number] 1 1 Encounter Details Date Type Department Care Team (Late st Contact Info) Description 07/28/2021 Home Care Visit [facility] Home Health [address] [address] [address] [place] [address] Pam Peralta RN TRAVEL SCREENING CASE COMMUNICATION Social History Tobacco Use Types Packs/Day Years Used Date Smoking Tobacco: Former Cigarettes Q uit: 08/22/2009 Smokeless Tobacco: Never Sex and Gender Information Value Date Recorded Sex Assigned at Not on file Legal Sex Male 1:43 PM CDT Gender Identity Male 08/12/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
--- OUTSIDE RECORDS SUMMARY | 2024-09-12 15:42 | XMS_ITS | Encounter Summary ---
Author Organization [facility] Home Care Servic es Address [address] [place] [address] Phone Care Team Providers Care Block Hand Name Role Phone Ross Espinosa MD Primary Care Provider [phone] [phone] Reason for Visit * Auth/Cert Specialty Diagnoses / Procedures Referred By Jovany t Referred To Contact Referral ID Status Reason Start Date Expiration Date Visits Re quested Visits Authorized [id number] 1 1 Encounter Details Date Type Department Care Team (Late st Contact Info) Description 07/25/2021 Home Care Visit [facility] Home Health - [address] [place] [address] Briana Ornelas, MARY SBAR-START OF CARE/RESUMPTION Social History Tobacco Use Types Packs/Day Years Used Date Smoking Tobacco: Former Cigarettes Q uit: 08/22/2009 Smokeless Tobacco: Never Sex and Gender Information Value Date Recorded Sex Assigned at Not on file Legal Sex Male 1:43 PM CDT Gender Identity Male 08/12/2022 2:14 PM 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
--- OUTSIDE RECORDS SUMMARY | 2024-09-12 15:42 | XMS_ITS | Encounter Summary ---
Author Organization [facility] Home Care Servic es Address [address] [place] [address] Phone Care Team Providers Care Shoes Hand Sewer Name Role Phone Ross Espinosa MD Primary Care Provider [phone] [phone] Reason for Visit * Auth/Cert Specialty Diagnoses / Procedures Referred By Jovany t Referred To Contact Referral ID Status Reason Start Date Expiration Date Visits Re quested Visits Authorized [id number] 1 1 Encounter Details Date Type Department Care Team (Late st Contact Info) Description 08/03/2021 Home Care Visit [facility] Home Health [address] [address] [address] [place] [address] Yani Frye RN TELEPHONE ENCOUNTER Social History Tobacco Use Types Packs/Day Years Used Date Smoking Tobacco: Former Cigarettes Q uit: 08/22/2009 Smokeless Tobacco: Never Sex and Gender Information Value Date Recorded Sex Assigned at Not on file Legal Sex Male 1:43 PM CDT Gender Identity Male 08/12/2022 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
--- OUTSIDE RECORDS SUMMARY | 2024-09-12 15:42 | XMS_ITS | Encounter Summary ---
Author Organization [facility] Home Care Servic es Address [address] [place] [address] Phone Care Team Providers Care Spa Receptionist Name Role Phone Ross Espinosa MD Primary Care Provider [phone] [phone] Reason for Visit * Auth/Cert Specialty Diagnoses / Procedures Referred By Jovany t Referred To Contact Referral ID Status Reason Start Date Expiration Date Visits Re quested Visits Authorized [id number] 1 1 Encounter Details Date Type Department Care Team (Late st Contact Info) Description 07/28/2021 10:00 AM HEALTH TECHNICIAN HEARING Home Care Visit [facility] Health [address] [address] [address] [place] [address] Pam Peralta RN SN HOME VISIT Social History Tobacco Use Types Packs/Day Years Used Date Smoking Tobacco: Former Cigarettes Q uit: 08/22/2009 Smokeless Tobacco: Never Sex and Gender Information Value Date Recorded Sex Assigned at Not on file Legal Sex Male 1:43 PM CDT Gender Identity Male 08/12/2022 2:14 PM HEALTH TECHNICIAN HEARING Sexual Orientation Not on file documented as of this encounter Last Filed Vital Signs Vital Sign Reading Time Taken Comments Blood Pressure 110/62 07/28/2021 12:00 AM HEALTH TECHNICIAN HEARING Pulse 101 07/28/2021 12:00 AM HEALTH TECHNICIAN HEARING Temperature 36.4 ??C (97.6 ??F) 07/28/2021 12:[address] Respiratory Rate 18 07/28/2021 12:00 AM HEALTH TECHNICIAN HEARING Oxygen Saturation 93% 07/28/2021 12:00 AM HEALTH TECHNICIAN HEARING Inhaled Oxygen Concentration - - Weight 84.4 kg (186 lb) 07/28/2021 12:00 AM HEALTH TECHNICIAN HEARING Height - - Body Mass Index 28.28 07/13/2021 9:20 AM HEALTH TECHNICIAN HEARING documented in this encounter Plan of Treatment Not on file documented as of this encounter Visit Diagnoses Not on filedocumented in this encounter Home Health Visit - Care Plan Visit Details Visit Type -SN Home Visit Discipline -Shelter Problems Problem Description Start Date Status Goals Interventions Homebound Status Disciplines: Shelter, Physical Therapy, Occupational Therapy, Home Health Aide, Medical Social Work Patient's homebound status 06/25/2021 Active 1 goal linked to scheduled/docume nted intervention 1 goal intervention scheduled/docume nted in this visit Medications Disciplines: Shelter, Physical Therapy, Occupational Therapy Management of home medications 06/25/2021 Active 1 goal linked to scheduled/docume nted intervention 1 goal intervention scheduled/docume nted in this visit Oxygen Disciplines: Shelter, Physical Therapy, Occupational Therapy, Home Health Aide Oxygen instruction and safety 06/25/2021 Active 1 goal linked to scheduled/docume nted intervention 1 goal intervention scheduled/docume nted in this visit Monitor patient's vital signs every home health visit Disciplines: Shelter, Physical Therapy, Occupational Therapy, Home Health Aide Monitor patient's vital signs every home health visit. 06/25/2021 Active 1 goal linked to scheduled/docume nted intervention 1 goal intervention scheduled/docume nted in this visit Standardized Guidelines Disciplines: Shelter, Physical Therapy, Occupational Therapy, Home Health Aide, Medical Social Work Standardized Guidelines 06/25/2021 Active 1 goal linked to scheduled/docume nted intervention Aide Supervisory Visit Disciplines: Shelter, Physical Therapy, Occupational Therapy Supervision of HH Aide 06/25/2021 Active 1 goal linked to scheduled/docume nted intervention Safety concerns Disciplines: Shelter, Physical Therapy, Occupational Therapy, Home Health Aide, Medical Social Work Alteration in safety 06/25/2021 Active 1 goal linked to scheduled/docume nted intervention 1 goal intervention scheduled/docume nted in this visit [place] Precautions Disciplines: Shelter, Physical Therapy, Occupational Therapy, Home Health Aide, Medical Social Work [place] Precautions 06/25/2021 Active 1 goal linked to scheduled/docume nted intervention Pain Disciplines: Shelter, Physical Therapy, Occupational Therapy, Home Health Aide, Medical Social Work Alteration in comfort 06/25/2021 Active 1 goal linked to scheduled/docume nted intervention 2 goal interventions scheduled/docume nted in this visit Safety concerns Disciplines: Shelter Safety needs related to infusion administration 06/25/2021 Active 1 goal linked to scheduled/docume nted intervention Learning/Teachin g Needs - IV Therapy Disciplines: Shelter Teaching and learning needs for performing home IV therapy 06/25/2021 Resolved on 07/28/2021 1 goal linked to scheduled/docume nted intervention Knowledge Deficit - Wound Care Disciplines: Shelter, Physical Therapy, Occupational Therapy, Home Health Aide Deficiency of cognitive information related to wound care 06/25/2021 Resolved on 07/28/2021 1 goal linked to scheduled/docume nted intervention 2 goal interventions scheduled/docume nted in this visit Goals Goal Associated Problem Outcome Goal Met? Visit Notes Patient recieves care at the most appropriate care setting Description: Patient receives care at the most appropriate care setting. Homebound Status No Understand and follow medication therapy Description: [...] visit during episode of care Description: Home primary clinician to measure vital signs during every home health visit during episode of care. Monitor patient's vital signs every home health visit Progressing No Understanding of when to notify MD in absence of home care staff Description: Understanding of when to notify MD in absence of home care staff Standardized Guidelines Progressing No Complete aide supervisory visit Description: Complete aide supervisory visit. Aide Supervisory Visit Defer No Demonstrate use of safety precautions Description: Demonstrate use of safety precautions Safety concerns Progressing No Demonstrate knowledge of universal precautions Description: Demonstrate knowledge of universal precautions [place] Precautions Progressing No Report that pain has been reduced or controlled Description: Report that pain has been reduced or controlled Pain Progressing No Verbalize emergency procedures, adverse reactions, and who to contact Description: Patient/caregiver will verbalize emergency procedures, adverse reactions and how to contact MD, RN or pharmacy throughout the episode of care. Safety concerns Progressing No Safely perform IV administration Description: Skilled Nurse/Patient/Caregiver will demonstrate ability to safely perform administration of IV by 06.24.2021. Patient/Caregiver will demonstrate ability to correctly perform flushing technique throughout the treatment episode. Learning/Teaching Needs - IV Therapy Completed Yes Knowledgeable on Woundcare Description: Patient/caregiver will be knowledgeable on woundcare procedure, wound healing and when to seek medical attention by 06.26.2021. Knowledge Deficit - Wound Care Completed Yes Interventions Intervention Associated Problem/Goal Status [...] leave home and needs frequent rest breaks. Instruct medications Description: Instruct patient/caregiver in medication administration, purpose, dosages, preparation, scheduling, side effects, food/drug interactions, storage, drug allergies, and potential complications. Problem:Medications Goal:Understand and follow medication therapy Completed Instructed patient on medication administration, purpose, dosages, preparation, scheduling, side effects, food/drug interactions, storage, drug allergies, and potential complications. Instruct on prescribed oxygen settings Description: Instruct patient/caregiver on prescribed oxygen settings. (O2 LPM: 3liter VIA: n/c FREQ: continuous Problem:Oxygen Goal:Demonstrate safe oxygen usage Completed Monitor Vital Signs Description: Monitor blood pressure, pulse, oxygen saturation, respirations Problem:Monitor patient's vital signs every home health visit Goal:Measure vital signs during every home health visit during episode of care Completed Instruct Fall Prevention Description: Instruct patient/caregiver in methods to prevent falls Problem:Safety concerns Goal:Demonstrate use of safety precautions Completed Instruct in relaxation strategies Description: Instruct patient/caregiver in relaxation strategies Problem:Pain Goal:Report that pain has been reduced or controlled Completed Instruct on pain management techniques Description: Instruct in pharmacologic and nonpharmacologic pain management techniques. Problem:Pain Goal:Report that pain has been reduced or controlled Completed Wound care Description: Wash left back surgical site with soap and water daily and pat dry. Leave open to air. May cover with dry dressing and secure with tape daily, if has drainage and as needed if becomes soiled or dislodged. Wound care by Sn/pt/caregiver. Problem:Knowledge Deficit - Wound Care Goal:Knowledgeable on Woundcare Completed no wound care required. Incision healed Instruct patient on maintaining adequate nutrition and hydration Description: Instruct patient on maintaining adequate nutrition for wound healing. Instruct pt/cg on eating/offering a balanced diet. Instruct on adequate protein sources per Wound Education Booklet. Consult RD for chronic malnutrition, stage 3 or 4 pressure ulcer. Problem:Knowledge Deficit - Wound Care Goal:Knowledgeable on Woundcare Completed documented in this encounter Care Teams Spa Receptionist Relationship Specialty Start Date End Date Ross Espinosa MD [address] [place] [address] PCP - General 06/11/21 03/02/22 documented as of this encounter
--- OUTSIDE RECORDS SUMMARY | 2024-09-12 15:42 | XMS_ITS | Encounter Summary ---
Author Organization [facility] Home Care [facility]ic es Address [address] [place] [address] Phone Care Team Providers Care Steam Shovelman Name Role Phone Ross Espinosa MD Primary Care Provider [phone] [phone] Reason for Visit * Auth/Cert Specialty Diagnoses / Procedures Referred By Bintaac t Referred To Contact Referral ID Status Reason Start Date Expiration Date Visits Re quested Visits Authorized [id number] 1 1 Encounter Details Date Type Department Care Team (Late st Contact Info) Description 07/28/2021 Home Care Visit [facility] Home Health [address] [address] [address] [place] [address] Kierra Gandara, PT TRAVEL SCREENING CASE COMMUNICATION Social History Tobacco Use Types Packs/Day Years Used Date Smoking Tobacco: Former Cigarettes Q uit: 08/22/2009 Smokeless Tobacco: Never Sex and Gender Information Value Date Recorded Sex Assigned at Not on file Legal Sex Male 1:43 PM CDT Gender Identity Male 08/12/2022 2:14 PM QUALITY CONTROL ASSISTANT Sexual Orientation Not on file documented as of this encounter Plan of Treatment Not on file documented as of this encounter Visit Diagnoses Not on filedocumented in this encounter Care Teams Steam Shovelman Relationship Specialty Start Date End Date Ross Espinosa MD [address] [place] [address] PCP - General 06/11/21 03/02/22 documented as of this encounter
--- OUTSIDE RECORDS SUMMARY | 2024-09-12 15:42 | XMS_ITS | Encounter Summary ---
Author Organization [facility] Home Care Servic es Address [address] [place] [address] Phone Care Team Providers Care Frog Farmer Name Role Phone Ross Espinosa MD Primary Care Provider [phone] [phone] Reason for Visit * Auth/Cert Specialty Diagnoses / Procedures Referred By Jovany t Referred To Contact Referral ID Status Reason Start Date Expiration Date Visits Re quested Visits Authorized [id number] 1 1 Encounter Details Date Type Department Care Team (Late st Contact Info) Description 07/24/2021 Home Care Visit [facility] Home Health [address] [address] [address] [place] [address] Galileo Rubalcava, CARE CONFERENCE Social History Tobacco Use Types Packs/Day Years Used Date Smoking Tobacco: Former Cigarettes Q uit: 08/22/2009 Smokeless Tobacco: Never Sex and Gender Information Value Date Recorded Sex Assigned at Not on file Legal Sex Male 1:43 PM CDT Gender Identity Male 08/12/2022 2:14 PM BATCH OPERATOR Sexual Orientation Not on file documented as of this encounter Plan of Treatment Not on file documented as of this encounter Visit Diagnoses Not on filedocumented in this encounter Care Teams Frog Farmer Relationship Specialty Start Date End Date Ross Espinosa MD [address] [place] [address] PCP - General 06/11/21 03/02/22 documented as of this encounter
--- OUTSIDE RECORDS SUMMARY | 2024-09-12 15:42 | XMS_ITS | Encounter Summary ---
Author Organization [facility] Home Care Servic es Address [address] [place] [address] Phone Care Team Providers Care Manager Of Product Name Role Phone Ross Espinosa MD Primary Care Provider [phone] [phone] Reason for Visit * Auth/Cert Specialty Diagnoses / Procedures Referred By Jovany t Referred To Contact Referral ID Status Reason Start Date Expiration Date Visits Re quested Visits Authorized [id number] 1 1 Encounter Details Date Type Department Care Team (Late st Contact Info) Description 08/04/2021 Home Care Visit [facility] Home Health - [address] [address] [address] [place] [address] Duglas Gonzales, FARM EQUIPMENT ASSEMBLER STAFF ELECTRICAL ENGINEER DISCIPLINE DISCHARGE Social History Tobacco Use Types Packs/Day Years Used Date Smoking Tobacco: Former Cigarettes Q uit: 08/22/2009 Smokeless Tobacco: Never Sex and Gender Information Value Date Recorded Sex Assigned at Not on file Legal Sex Male 1:43 PM CDT Gender Identity Male 08/12/2022 2:14 PM WIRE WRAPPER MACHINE OPERATOR Sexual Orientation Not on file documented as of this encounter Plan of Treatment Not on file documented as of this encounter Visit Diagnoses Not on filedocumented in this encounter Home Health Visit - Care Plan Visit Details Visit Type -STAFF ELECTRICAL ENGINEER Discipline D ischarge Discipline -Medical Social Work Problems Problem Description Start Date Status Goals Interve ntions STAFF ELECTRICAL ENGINEER Resource Needs Disciplines: Social Work Deficit related to resources. 07/01/2021 Resolved on 08/04/2021 1 goal linked to scheduled/documen darrion intervention STAFF ELECTRICAL ENGINEER Emotional Support Needs Disciplines: Social Work Deficit related to emotional support. 07/01/2021 Resolved on 08/04/2021 1 goal linked to scheduled/documen darrion intervention Goals Goal Associated Problem Outcome Goal Met? Visit Notes Understanding of available resources Description: Patient/family/caregiver will voice understanding of available resources by .awning finisher STAFF ELECTRICAL ENGINEER Resource Needs Completed Yes Increase emotional support Description: Patient/family is able to explore reactions to and verbalize acceptance of impact of illness by STAFF ELECTRICAL ENGINEER discharge STAFF ELECTRICAL ENGINEER Emotional Support Needs Completed Yes documented in this encounter Home Health Visit - Actions and Narratives Actions STAFF ELECTRICAL ENGINEER DISCHARGE SUMMARY STAFF ELECTRICAL ENGINEER did home visit with pt and family on: 07/01/21 PRIORITIES/GOALS: finalize divorce, move into place near sisters STRESSORS: the divorce, need to get stronger, ambulate in dependently ASSETS: supportive family, financial stability ORIENTATION: A&OX: 4 MOOD/AFFECT/COPING SKILLS: denies mood issues CAREGIVER/SUPPORT: [place] in [place], filed for divorce in [place]. Sister sometimes assists with getting out of bed, assists with IV, prep some meals PHYSICAL STATUS (ADLs/IADLs, sleep/nutrition): using 2WW, difficulty with stairs. Using O2 PRN RELATIONSHIPS/BACKGROUND: lives with sister, other sister lives around the corner. Pt getting . 3 grown dtrs, 2 in [place] and 1 in [place]. X2, together 40- years. 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 SUBSTANCE USE: Patient denies ETOH, tobacco and illicit drug use. Quit smoking tobacco cigarettes August 2011 PAIN: rates pain 3 surgical site/catheter SAFETY CONCERNS (HX/CURRENTSI/SIB): no grab bars in shower RESOURCES AVAILABLE (ERB, HCPOA, caregiver, transportation): None PATIENT REQUEST: HCPOA STAFF ELECTRICAL ENGINEER INTERVENTIONS: STAFF ELECTRICAL ENGINEER made referral to [facility] Senior Counseling program provided by [facility] STAFF ELECTRICAL ENGINEER provided HCPOA document STAFF ELECTRICAL ENGINEER provided ERB resource STAFF ELECTRICAL ENGINEER phoned [employer] to request an application be sent to pt STAFF ELECTRICAL ENGINEER provided emotional support and encouragement to patient through conversation, active listening and supportive presence. Patient verbalized understanding of all resources discussed. Patient had no other needs or concerns. STAFF ELECTRICAL ENGINEER coordinated care with home care team. Since patient no longer requires STAFF ELECTRICAL ENGINEER services, STAFF ELECTRICAL ENGINEER is discharging effective 12/14/21 documented in this encounter Care Teams Manager Of Product Relationship Specialty Start Date End Date Ross Espinosa MD [address] [place] [address] PCP - General 06/11/21 03/02/22 documented as of this encounter
--- OUTSIDE RECORDS SUMMARY | 2024-09-12 15:42 | XMS_ITS | Encounter Summary ---
Author Organization [facility] Home Care Servic es Address [address] [place] [address] Phone Care Team Providers Care Web Sizer Name Role Phone Ross Espinosa MD Primary Care Provider [phone] [phone] Reason for Visit * Auth/Cert Specialty Diagnoses / Procedures Referred By Jovany t Referred To Contact Referral ID Status Reason Start Date Expiration Date Visits Re quested Visits Authorized [id number] 1 1 Encounter Details Date Type Department Care Team (Late st Contact Info) Description 08/04/2021 11:30 AM ECONOMIC DEVELOPMENT MANAGER Home Care Visit [facility] Home Health [address] [address] [address] [place] [address] Alycia Xavier RN SN OASIS DISCHARGE Social History Tobacco Use Types Packs/Day Years Used Date Smoking Tobacco: Former Cigarettes Q uit: 08/22/2009 Smokeless Tobacco: Never Sex and Gender Information Value Date Recorded Sex Assigned at Not on file Legal Sex Male 1:43 PM CDT Gender Identity Male 08/12/2022 2:14 PM ECONOMIC DEVELOPMENT MANAGER Sexual Orientation Not on file documented as of this encounter Last Filed Vital Signs Vital Sign Reading Time Taken Comments Blood Pressure 142/86 08/04/2021 11:58 AM ECONOMIC DEVELOPMENT MANAGER Pulse 76 08/04/2021 11:58 AM ECONOMIC DEVELOPMENT MANAGER Temperature 36.4 ??C (97.6 ??F) 08/04/2021 11:[address] Respiratory Rate 20 08/04/2021 11:58 AM ECONOMIC DEVELOPMENT MANAGER Oxygen Saturation 94% 08/04/2021 11:58 AM ECONOMIC DEVELOPMENT MANAGER Inhaled Oxygen Concentration - - Weight 84.4 kg (186 lb) 08/04/2021 11:58 AM ECONOMIC DEVELOPMENT MANAGER Height - - Body Mass Index 28.28 07/31/2021 10:12 AM ECONOMIC DEVELOPMENT MANAGER documented in this encounter Plan of Treatment Not on file documented as of this encounter Visit Diagnoses Not on filedocumented in this encounter Home Health Visit - Care Plan Visit Details Visit Type -SN OASIS Dischar ge Discipline -Chcf Problems Problem Description Start Date Status Goals Interventions Homebound Status Disciplines: Chcf, Physical Therapy, Occupational Therapy, Home Health Aide, Medical Social Work Patient's homebound status 06/25/2021 Resolved on 08/04/2021 1 goal linked to scheduled/docum ented intervention 1 goal intervention scheduled/docume nted in this visit Medications Disciplines: Chcf, Physical Therapy, Occupational Therapy Management of home medications 06/25/2021 Resolved on 08/04/2021 1 goal linked to scheduled/docum ented intervention 1 goal intervention scheduled/docume nted in this visit Oxygen Disciplines: Chcf, Physical Therapy, Occupational Therapy, Home Health Aide Oxygen instruction and safety 06/25/2021 Resolved on 08/04/2021 1 goal linked to scheduled/docum ented intervention Monitor patient's vital signs every home health visit Disciplines: Chcf, Physical Therapy, Occupational Therapy, Home Health Aide Monitor patient's vital signs every home health visit. 06/25/2021 Resolved on 08/04/2021 1 goal linked to scheduled/docum ented intervention 1 goal intervention scheduled/docume nted in this visit Infection Prevention Disciplines: Chcf, Physical Therapy, Occupational Therapy, Home Health Aide Infection Prevention 06/25/2021 Resolved on 08/04/2021 1 goal linked to scheduled/docum ented intervention 1 goal intervention scheduled/docume nted in this visit Standardized Guidelines Disciplines: Chcf, Physical Therapy, Occupational Therapy, Home Health Aide, Medical Social Work Standardized Guidelines 06/25/2021 Resolved on 08/04/2021 1 goal linked to scheduled/docum ented intervention Aide Supervisory Visit Disciplines: Chcf, Physical Therapy, Occupational Therapy Supervision of HH Aide 06/25/2021 Resolved on 08/04/2021 1 goal linked to scheduled/docum ented intervention Safety concerns Disciplines: Chcf, Physical Therapy, Occupational Therapy, Home Health Aide, Medical Social Work Alteration in safety 06/25/2021 Resolved on 08/04/2021 1 goal linked to scheduled/docum ented intervention 1 goal intervention scheduled/docume nted in this visit Anticoagulation Therapy Disciplines: Chcf, Physical Therapy, Occupational Therapy Management of anticoagulation therapy 06/25/2021 Resolved on 08/04/2021 1 goal linked to scheduled/docum ented intervention [place] Precautions Disciplines: Chcf, Physical Therapy, Occupational Therapy, Home Health Aide, Medical Social Work [place] Precautions 06/25/2021 Resolved on 08/04/2021 1 goal linked to scheduled/docum ented intervention Pain Disciplines: Chcf, Physical Therapy, Occupational Therapy, Home Health Aide, Medical Social Work Alteration in comfort 06/25/2021 Resolved on 08/04/2021 1 goal linked to scheduled/docum ented intervention Safety concerns Disciplines: Chcf Safety needs related to infusion administration 06/25/2021 Resolved on 08/04/2021 1 goal linked to scheduled/docum ented intervention Goals Goal Associated Problem Outcome Goal Met? Visit Notes Patient recieves care at the most appropriate care setting Description: Patient receives care at the most appropriate care setting. Homebound Status Adequate for Discharge No Understand and follow medication therapy Description: Patient/caregiver will understand and follow prescribed medication therapy as evidence by having up to date medication list in home & ability to verbalize purpose, schedule, and side effects by the end of the episode of care Medications Adequate for Discharge No Demonstrate safe oxygen usage Description: Patient/caregiver to verbalize and demonstrate safe oxygen usage by end of episode of care Oxygen Adequate for Discharge No Measure vital signs during every home health visit during episode of care Description: Home winding inspector and tester to measure vital signs during every home health visit during episode of care. Monitor patient's vital signs every home health visit Adequate for Discharge No Verbalize signs of infection Description: Verbalize signs of infection Infection Prevention Adequate for Discharge No Understanding of when to notify MD in absence of home care staff Description: Understanding of when to notify MD in absence of home care staff Standardized Guidelines Adequate for Discharge No Complete aide supervisory visit Description: Complete aide supervisory visit. Aide Supervisory Visit Adequate for Discharge No Demonstrate use of safety precautions Description: Demonstrate use of safety precautions Safety concerns Adequate for Discharge No Demonstrate knowledge of anticoagulant therapy Description: Demonstrate knowledge of anticoagulant therapy. Anticoagulation Therapy Adequate for Discharge No Demonstrate knowledge of universal precautions Description: Demonstrate knowledge of universal precautions [place] Precautions Adequate for Discharge No Report that pain has been reduced or controlled Description: Report that pain has been reduced or controlled Pain Adequate for Discharge No Verbalize emergency procedures, adverse reactions, and who to contact Description: Patient/caregiver will verbalize emergency procedures, adverse reactions and how to contact MD, RN or pharmacy throughout the episode of care. Safety concerns Adequate for Discharge No Interventions Intervention Associated Problem/Goal Status Variance [...] Problem:Medications Goal:Understand and follow medication therapy Completed Patient instructed on medication administration, purpose, dosages, preparation, scheduling, side effects, food/drug interactions, and potential complications. Current regimen and compliance reviewed with Patient. Patient verbalize knowledge of all medications Monitor Vital Signs Description: Monitor blood pressure, pulse, oxygen saturation, respirations Problem:Monitor patient's vital signs every home health visit Goal:Measure vital signs during every home health visit during episode of care Completed Educate Patient on Infection Prevention Description: Instruct patient on signs and symptoms of infection IE: fever, odor, change in color, increased amount of drainage, purulent drainage, warmth. Problem:Infection Prevention Goal:Verbalize signs of infection Completed Code Status Description: Discuss with patient/caregiver code status Problem:Safety concerns Goal:Demonstrate use of safety precautions Completed Full Code documented in this encounter Care Teams Web Sizer Relationship Specialty Start Date End Date Ross Espinosa MD [address] [place] [address] PCP - General 06/11/21 03/02/22 documented as of this encounter
--- OUTSIDE RECORDS SUMMARY | 2024-09-12 15:42 | XMS_ITS | Encounter Summary ---
Author Organization [facility] Home Care Servic es Address [address] [place] [address] Phone Care Team Providers Care Charge Hand Name Role Phone Ross Espinosa MD Primary Care Provider [phone] [phone] Reason for Visit * Auth/Cert Specialty Diagnoses / Procedures Referred By Jovany t Referred To Contact Referral ID Status Reason Start Date Expiration Date Visits Re quested Visits Authorized [id number] 1 1 Encounter Details Date Type Department Care Team (Late st Contact Info) Description 08/04/2021 Home Care Visit [facility] Home Health [address] [address] [address] [place] [address] Alycia Xavier RN TRAVEL SCREENING CASE COMMUNICATION Social History Tobacco Use Types Packs/Day Years Used Date Smoking Tobacco: Former Cigarettes Q uit: 08/22/2009 Smokeless Tobacco: Never Sex and Gender Information Value Date Recorded Sex Assigned at Not on file Legal Sex Male 1:43 PM CDT Gender Identity Male 08/12/2022 2:14 PM TRIPLE DRUM OPERATOR Sexual Orientation Not on file documented as of this encounter Plan of Treatment Not on file documented as of this encounter Visit Diagnoses Not on filedocumented in this encounter Care Teams Charge Hand Relationship Specialty Start Date End Date Ross Espinosa MD [address] [place] [address] PCP - General 06/11/21 03/02/22 documented as of this encounter
--- OUTSIDE RECORDS SUMMARY | 2024-09-12 15:43 | XMS_ITS | Encounter Summary ---
Author Organization [facility] Home Care Servic es Address [address] [place] [address] Phone Care Team Providers Care Head Charrer Name Role Phone Ross Espinosa MD Primary Care Provider [phone] [phone] Reason for Visit * Auth/Cert Specialty Diagnoses / Procedures Referred By Jovany t Referred To Contact Referral ID Status Reason Start Date Expiration Date Visits Re quested Visits Authorized [id number] 1 1 Encounter Details Date Type Department Care Team (Late st Contact Info) Description 07/15/2021 1:00 PM CANTEEN OPERATOR Home Care Visit [facility] [address] [place] [address] Galileo Rubalcava, SY PT HOME VISIT Social History Tobacco Use Types Packs/Day Years Used Date Smoking Tobacco: Former Cigarettes Q uit: 08/22/2009 Smokeless Tobacco: Never Sex and Gender Information Value Date Recorded Sex Assigned at Not on file Legal Sex Male 1:43 PM CDT Gender Identity Male 08/12/2022 2:14 PM CANTEEN OPERATOR Sexual Orientation Not on file documented as of this encounter Last Filed Vital Signs Vital Sign Reading Time Taken Comments Blood Pressure 141/84 07/15/2021 1:03 PM CANTEEN OPERATOR Pulse 83 07/15/2021 1:03 PM CANTEEN OPERATOR Temperature 36.2 ??C (97.2 ??F) 07/15/2021 1:03 PM CS T Respiratory Rate 18 07/15/2021 1:03 PM CANTEEN OPERATOR Oxygen Saturation 99% 07/15/2021 1:03 PM CANTEEN OPERATOR Inhaled Oxygen Concentration - - Weight - - Height - - Body Mass Index - - documented in this encounter Plan of Treatment Not on file documented as of this encounter Visit Diagnoses Not on filedocumented in this encounter Home Health Visit - Care Plan Visit Details Visit Type -PT Home Visit Discipline -Physical Therapy Problems Problem Description Start Date Status Goals Interve ntions Homebound Status Disciplines: Assisted, Physical Therapy, Occupational Therapy, Home Health Aide, Medical Social Work Patient's homebound status 06/25/2021 Active 1 goal linked to scheduled/docume nted intervention 1 goal intervention scheduled/documen darrion in this visit Monitor patient's vital signs every home health visit Disciplines: Assisted, Physical Therapy, Occupational Therapy, Home Health Aide Monitor patient's vital signs every home health visit. 06/25/2021 Active 1 goal linked to scheduled/docume nted intervention 1 goal intervention scheduled/documen darrion in this visit Safety concerns Disciplines: Assisted, Physical Therapy, Occupational Therapy, Home Health Aide, Medical Social Work Alteration in safety 06/25/2021 Active 1 goal linked to scheduled/docume nted intervention 2 goal interventions scheduled/documen darrion in this visit Knowledge Deficit - Wound Care Disciplines: Assisted, Physical Therapy, Occupational Therapy, Home Health Aide Deficiency of cognitive information related to wound care 06/25/2021 Active 1 goal linked to scheduled/docume nted intervention 1 goal intervention scheduled/documen darrion in this visit PT Impaired Functional Mobility/Balance Disciplines: Physical Therapy Impaired functional mobility/balance 06/29/2021 Active - 3 problem interventions scheduled/documen darrion in this visit Goals Goal Associated Problem Outcome Goal Met? Visit Notes Patient recieves care at the most appropriate care setting Description: Patient receives care at the most appropriate care setting. Homebound Status No Measure vital signs during every home health visit during episode of care Description: Home regional director of finance to measure vital signs during every home health visit during episode of care. Monitor patient's vital signs every home health visit No Demonstrate use of safety precautions Description: Demonstrate use of safety precautions Safety concerns No Knowledgeable on Woundcare Description: Patient/caregiver will [...] concerns Goal:Demonstrate use of safety precautions Completed Wound care Description: Wash left back surgical site with soap and water daily and pat dry. Leave open to air. May cover with dry dressing and secure with tape daily, if has drainage and as needed if becomes soiled or dislodged. Wound care by Sn/pt/caregiver. Problem:Knowledge Deficit - Wound Care Goal:Knowledgeable on Woundcare Completed assessed incisions - no s/s of infection, no drainage. Home Exercise Program (HEP) Description: Instruct patient/caregiver and perform HEP. Problem:PT Impaired Functional Mobility/Balance Completed instructed to continue HEP X 10-20 reps BID as tolerated. issued handouts for reference. patient verbalizes good understanding of instructions and provides safe verbalization/return demonstration of instructions Gait/Stair Training Description: Instruct patient/caregiver and perform gait/stair training. Problem:PT Impaired Functional Mobility/Balance Completed instructed to rest as needed, gradually increase walking program as tolerated and use assistive device as needed for safety. patient verbalizes good understanding of instructions and provides safe verbalization/return demonstration of instructions. Therapeutic Exercise Description: Perform therapeutic exercise, progressing as tolerated. Problem:PT Impaired Functional Mobility/Balance Completed reviewed seated home exercises performed standing calf raises, hip abduction, hip extension, marches, heel kicks. patient tolerated well, did require standing rest breaks to decrease shortness of breath. documented in this encounter Home Health Visit - Actions and Narratives Actions patient tolerated therapy we ll today. progressed to standing LE exercises and added to HEP. To continue per PoC. documented in this encounter Care Teams Head Charrer Relationship Specialty Start Date End Date Ross Espinosa MD [address] [place] [address] PCP - General 06/11/21 03/02/22 documented as of this encounter
--- OUTSIDE RECORDS SUMMARY | 2024-09-12 15:43 | XMS_ITS | Encounter Summary ---
Author Organization [facility] Address [address] [place] [address] Phone Care Team Providers Care Purchasing Director Name Role Phone Ross Espinosa MD Primary Care Provider [phone] [phone] Encounter Details Date Type Department Care Team (Late st Contact Info) Description 07/15/2021 Telephone [facility] Infectious Diseases [address] [place] [address] [address] [place] [address] Nita Miller, [facility] Social History Tobacco Use Types Packs/Day Years Used Date Smoking Tobacco: Former Cigarettes Q uit: 08/22/2009 Smokeless Tobacco: Never Sex and Gender Information Value Date Recorded Sex Assigned at Not on file Legal Sex Male 1:43 PM CDT Gender Identity Male 08/12/2022 2:14 PM HYBRID TESTER Sexual Orientation Not on file documented as of this encounter Miscellaneous Notes * Telephone Encounter - Shanice George - 07/15/2021 4:19 PM CST Called back and left VM. Pt should go to outpt appointment for line removal if HHRN cannot remove line ID TESTER * Telephone Encounter - Nita Miller - 07/15/2021 3:14 PM CST Anna is returning your call back, she said if she doesn't product picker please leave a voice mail ok, call back is [phone] ID TESTER documented in this encounter Plan of Treatment Not on file documented as of this encounter Visit Diagnoses Not on filedocumented in this encounter Care Teams Purchasing Director Relationship Specialty Start Date End Date Ross Espinosa MD [address] [place] [address] PCP - General 06/11/21 03/02/22 documented as of this encounter
--- OUTSIDE RECORDS SUMMARY | 2024-09-12 15:43 | XMS_ITS | Encounter Summary ---
Author Organization [facility] Home Care Servic es Address [address] [place] [address] Phone Care Team Providers Care Communication Instructor Name Role Phone Ross Espinosa MD Primary Care Provider [phone] [phone] Reason for Visit * Auth/Cert Specialty Diagnoses / Procedures Referred By Bintaac t Referred To Contact Referral ID Status Reason Start Date Expiration Date Visits Re quested Visits Authorized [id number] 1 1 Encounter Details Date Type Department Care Team (Late st Contact Info) Description 07/14/2021 Home Care Visit [facility] Home Health [address] [address] [address] [place] [address] Estela Oshea COTA TRAVEL SCREENING CASE COMMUNICATION Social History Tobacco Use Types Packs/Day Years Used Date Smoking Tobacco: Former Cigarettes Q uit: 08/22/2009 Smokeless Tobacco: Never Sex and Gender Information Value Date Recorded Sex Assigned at Not on file Legal Sex Male 1:43 PM CDT Gender Identity Male 08/12/2022 2:14 PM AUDITING CODER Sexual Orientation Not on file documented as of this encounter Plan of Treatment Not on file documented as of this encounter Visit Diagnoses Not on filedocumented in this encounter Care Teams Communication Instructor Relationship Specialty Start Date End Date Ross Espinosa MD [address] [place] [address] PCP - General 06/11/21 03/02/22 documented as of this encounter
--- OUTSIDE RECORDS SUMMARY | 2024-09-12 15:43 | XMS_ITS | Encounter Summary ---
Author Organization [facility] Home Care Servic es Address [address] [place] [address] Phone Care Team Providers Care Track Laying Machine Operator Name Role Phone Ross Espinosa MD Primary Care Provider [phone] [phone] Reason for Visit * Auth/Cert Specialty Diagnoses / Procedures Referred By Jovany t Referred To Contact Referral ID Status Reason Start Date Expiration Date Visits Re quested Visits Authorized [id number] 1 1 Encounter Details Date Type Department Care Team (Late st Contact Info) Description 07/17/[address] [facility] Home Health [address] [address] [address] [place] [address] Galileo Rubalcava, CARE CONFERENCE Social History Tobacco Use Types Packs/Day Years Used Date Smoking Tobacco: Former Cigarettes Q uit: 08/22/2009 Smokeless Tobacco: Never Sex and Gender Information Value Date Recorded Sex Assigned at Not on file Legal Sex Male 1:43 PM CDT Gender Identity Male 08/12/2022 2:14 PM FIRE OPERATIONS FORESTER Sexual Orientation Not on file documented as of this encounter Plan of Treatment Not on file documented as of this encounter Visit Diagnoses Not on filedocumented in this encounter Care Teams Track Laying Machine Operator Relationship Specialty Start Date End Date Ross Espinosa MD [address] [place] [address] PCP - General 06/11/21 03/02/22 documented as of this encounter
--- OUTSIDE RECORDS SUMMARY | 2024-09-12 15:43 | XMS_ITS | Encounter Summary ---
Author Organization [facility] Home Care Servic es Address [address] [place] [address] Phone Care Team Providers Care Historiographer Name Role Phone Ross Espinosa MD Primary Care Provider [phone] [phone] Reason for Visit * Auth/Cert Specialty Diagnoses / Procedures Referred By Jovany t Referred To Contact Referral ID Status Reason Start Date Expiration Date Visits Re quested Visits Authorized [id number] 1 1 Encounter Details Date Type Department Care Team (Late st Contact Info) Description 07/15/2021 1:30 PM TURBOGENERATOR OPERATOR Home Care Visit [facility] [address] [address] [address] [place] [address] Kayla Watson CNA AIDE HOME VISIT Social History Tobacco Use Types Packs/Day Years Used Date Smoking Tobacco: Former Cigarettes Q uit: 08/22/2009 Smokeless Tobacco: Never Sex and Gender Information Value Date Recorded Sex Assigned at Not on file Legal Sex Male 1:43 PM CDT Gender Identity Male 08/12/2022 2:14 PM TURBOGENERATOR OPERATOR Sexual Orientation Not on file documented as of this encounter Last Filed Vital Signs Vital Sign Reading Time Taken Comments Blood Pressure 148/78 07/15/2021 11:07 AM TURBOGENERATOR OPERATOR Pulse 93 07/15/2021 11:07 AM TURBOGENERATOR OPERATOR Temperature 36.3 ??C (97.3 ??F) 07/15/2021 11:[address] Respiratory Rate 20 07/15/2021 11:07 AM TURBOGENERATOR OPERATOR Oxygen Saturation 99% 07/15/2021 11:07 AM TURBOGENERATOR OPERATOR Inhaled Oxygen Concentration - - Weight - - Height - - Body Mass Index - - documented in this encounter Plan of Treatment Not on file documented as of this encounter Visit Diagnoses Not on filedocumented in this encounter Home Health Visit - Care Plan Visit Details Visit Type -Aide Home Visit Discipline -Home Health Aide Problems Problem Description Start Date Status Goals Interve ntions Aide Other Tasks Disciplines: Home Health Aide Aide to perform or assist with other duties as directed 06/26/2021 Active 1 goal linked to scheduled/documen darrion intervention 4 goal interventions scheduled/document ed in this visit Aide area/unit care Disciplines: Home Health Aide Aide to assist with clean-up of patient's environment care as directed 06/26/2021 Active 1 goal linked to scheduled/documen darrion intervention 2 goal interventions scheduled/document ed in this visit Aide personal care Disciplines: Home Health Aide Aide to assist patient with personal care as directed 06/26/2021 Active 1 goal linked to scheduled/documen darrion intervention 7 goal interventions scheduled/document ed in this visit Aide nutrition Disciplines: Home Health Aide Aide to assist patient with nutritional cares as directed 06/26/2021 Active 1 goal linked to scheduled/documen darrion intervention 1 goal intervention scheduled/document ed in this visit Aide elimination Disciplines: Home Health Aide Aide to assist patient with elimination needs as directed 06/26/2021 Active 1 goal linked to scheduled/documen darrion intervention 3 goal interventions scheduled/document ed in this visit Aide activity Disciplines: Home Health Aide Aide to assist patient activity tasks as directed 06/26/2021 Active 1 goal linked to scheduled/documen darrion intervention 3 goal interventions scheduled/document ed in this visit Goals Goal Associated Problem Outcome Goal Met? Visit Notes Duties completed by aide as ordered Description: Duties for patient will be completed by aide as ordered by supervising discipline Aide Other Tasks No Environment cleanup completed as ordered Description: Patient's environment cleanup will be completed by aide as ordered. Aide area/unit care No Personal care completed as ordered Description: Patient's personal care will be completed by aide as ordered. Patient will have improved comfort and ability to provide personal care at discharge Aide personal care No Nutrition cares completed as ordered Description: Patient's nutritional cares will be completed by aide as ordered Aide nutrition No Aide elimination tasks completed as ordered Description: Elimination tasks will be completed by aide as ordered Aide elimination No Activity Needs Completed as Ordered Description: Patient activity needs will be completed by aide as ordered Aide activity No Interventions Intervention Associated Problem/Goal Status Variance Visit Notes Aide aware of precautions Description: Aide aware of universal precautions Problem:Aide Other Tasks Goal:Duties completed by aide as ordered Completed Aide report condition to supervising discipline Description: Aide to report change in patient condition to supervising discipline SN. Problem:Aide Other Tasks Goal:Duties completed by aide as ordered Completed Supervising Discipline notification of abnormal vital signs Description: Use standardized clinical guidelines of abnormal vitals signs to report to supervising discipline. (SBP 90-160, DBP 40-90, O2Sat 88-100%, temporal temp less than 101.5) Problem:Aide Other Tasks Goal:Duties completed by aide as ordered Completed Monitor Vital Signs Description: Aide to obtain temperature, pulse, respirations, and blood pressure each visit. Notify supervising disciplines of SBP 90-160, DBP 40-90, O2Sat 88-100%, temporal temp less than 101.5. Problem:Aide Other Tasks Goal:Duties completed by aide as ordered Completed Aide clean/tidy Description: Tidy patient area, package pick up clutter and store in collaboration with patient. Problem:Aide area/unit care Goal:Environment cleanup completed as ordered Completed Aide change bed linens Description: Change bed linens and make bed. Problem:Aide area/unit care Goal:Environment cleanup completed as ordered Scheduled with variance Patient refused Aide assist with bathing Description: Assistance with shower. Problem:Aide personal care Goal:Personal care completed as ordered Completed Aide assist with oral care Description: Assist patient with oral care . Problem:Aide personal care Goal:Personal care completed as ordered Completed Aide assist with dressing Description: Assist patient with dressing upper and lower. Problem:Aide personal care Goal:Personal care completed as ordered Completed Aide inspect skin Description: Inspect skin for signs of pressure or irritation. Report any observed or patient reported concerns to RN. Problem:Aide personal care Goal:Personal care completed as ordered Completed Aide assist with shaving Description: Shave patient using disposable razor on face. Problem:Aide personal care Goal:Personal care completed as ordered Scheduled with variance Patient refused Aide apply lotion Description: Apply lotion to patient's skin. Lotion per patient preference. Problem:Aide personal care Goal:Personal care completed as ordered Scheduled with variance Patient refused Aide assist with shampoo Description: Assist patient with shampooing hair in shower. Problem:Aide personal care Goal:Personal care completed as ordered Scheduled with variance Patient refused Aide encourage/offer fluid Description: Encourage and offer fluid intake to patient. Problem:Aide nutrition Goal:Nutrition cares completed as ordered Completed Aide cleanse perineal Description: Cleanse perineal area with soap and water. Report any observed concerns to the supervising discipline. Pt has kumari cath Problem:Aide elimination Goal:Aide elimination tasks completed as ordered Completed Aide assist with toileting Description: Assist patient with toileting using a 1 person assist. Document refusal of gait belt. Problem:Aide elimination Goal:Aide elimination tasks completed as ordered Scheduled with variance Patient refused Aide change adult diaper Description: Perform adult diaper change. Problem:Aide elimination Goal:Aide elimination tasks completed as ordered Scheduled with variance Patient refused Aide assist with transfers Description: Assist with transfers as instructed. Problem:Aide activity Goal:Activity Needs Completed as Ordered Completed Aide assist with ambulation Description: Assist with ambulation using walker and gait belt. Document refusal of gait belt if indicated. Problem:Aide activity Goal:Activity Needs Completed as Ordered Completed Aide assist with repositioning Description: Assist with repositioning as instructed. Problem:Aide activity Goal:Activity Needs Completed as Ordered Completed documented in this encounter Care Teams Historiographer Relationship Specialty Start Date End Date Ross Espinosa MD [address] [place] [address] PCP - General 06/11/21 03/02/22 documented as of this encounter
--- OUTSIDE RECORDS SUMMARY | 2024-09-12 15:43 | XMS_ITS | Encounter Summary ---
Author Organization [facility] Home [facility] es Address [address] [place] [address] Phone Care Team Providers Care Architectural Draftsman Name Role Phone Ross Espinosa MD Primary Care Provider [phone] [phone] Reason for Visit * Auth/Cert Specialty Diagnoses / Procedures Referred By Jovany carver Referred To Contact Referral ID Status Reason Start Date Expiration Date Visits Re quested Visits Authorized [id number] 1 1 Encounter Details Date Type Department Care Team (Late st Contact Info) Description 07/14/2021 2:00 PM PROJECT CONTROL OFFICER Home Care Visit [facility] [address] [address] [address] [place] [address] Briana Ornelas RN SN HOME VISIT Social History Tobacco Use Types Packs/Day Years Used Date Smoking Tobacco: Former Cigarettes Q uit: 08/22/2009 Smokeless Tobacco: Never Sex and Gender Information Value Date Recorded Sex Assigned at Not on file Legal Sex Male 1:43 PM CDT Gender Identity Male 08/12/2022 2:14 PM PROJECT CONTROL OFFICER Sexual Orientation Not on file documented as of this encounter Last Filed Vital Signs Vital Sign Reading Time Taken Comments Blood Pressure 124/74 07/14/2021 1:14 PM PROJECT CONTROL OFFICER Pulse 94 07/14/2021 1:14 PM PROJECT CONTROL OFFICER Temperature 36.6 ??C (97.8 ??F) 07/14/2021 1:14 PM CS T Respiratory Rate 20 07/14/2021 1:14 PM PROJECT CONTROL OFFICER Oxygen Saturation - - Inhaled Oxygen Concentration - - Weight 94.3 kg (208 lb) 07/14/2021 1:14 PM PROJECT CONTROL OFFICER Height - - Body Mass Index 31.63 07/13/2021 9:20 AM PROJECT CONTROL OFFICER documented in this encounter Plan of Treatment Not on file documented as of this encounter Visit Diagnoses Not on filedocumented in this encounter Home Health Visit - Care Plan Visit Details Visit Type -SN Home Visit Discipline -Residential Problems Problem Description Start Date Status Goals Interve ntions Homebound Status Disciplines: Residential, Physical Therapy, Occupational Therapy, Home Health Aide, Medical Social Work Patient's homebound status 06/25/2021 Active 1 goal linked to scheduled/docume nted intervention 1 goal intervention scheduled/documen darrion in this visit Monitor patient's vital signs every home health visit Disciplines: Residential, Physical Therapy, Occupational Therapy, Home Health Aide Monitor patient's vital signs every home health visit. 06/25/2021 Active 1 goal linked to scheduled/docume nted intervention 1 goal intervention scheduled/documen darrion in this visit Need to Collect Specimen Sample Disciplines: Residential Need to collect specimen sample 06/25/2021 Active - 1 problem intervention scheduled/documen darrion in this visit Learning/Teaching Needs - IV Therapy Disciplines: Residential Teaching and learning needs for performing home IV therapy 06/25/2021 Active - 1 problem intervention scheduled/documen darrion in this visit Knowledge Deficit - Wound Care Disciplines: Residential, Physical Therapy, Occupational Therapy, Home Health Aide [...] visit during episode of care Description: Home radio host to measure vital signs during every home [...] of care Completed VSS. Afebrile. 02 sat 89% with 02 off. 94% with 02 at 3L Lab draw Description: Labs: weekly CBC with Diff and CMP starting 11.3 or 11.4.2020. Fax results to [facility] infusion at [phone] and [phone]. DX code: J86.9. Ordering dr: Dr Susy Carrasquillo MD. Problem:Need to Collect Specimen Sample Completed Sample obtained from R neck CVL using aseptic technique for CBC, CMP as ordered. IV Access Care/Maintenance Description: Skilled Nurse to change line dressing change within 48 hours if there is gauze under the occlusive dressing, dressing is soiled, or non-occlusive. Weekly IV site dressing changes to be performed if no issues. Skilled Nurse to measure line migration and arm circumference at SOC and weekly with dressing change. Skilled Nurse to place disinfecting caps to the end of each line upon completion of infusion/flushes. Problem:Learning/Teach ing Needs - IV Therapy Completed CVL care completed R neck using aseptic technique. Caps/dressing changed. Pt. tolerated well. Wound care Description: Wash left back surgical site with soap and water daily and pat dry. Leave open to air. May cover with dry dressing and secure with tape daily, if has drainage and as needed if becomes soiled or dislodged. Wound care by Sn/pt/caregiver. Problem:Knowledge Deficit - Wound Care Goal:Knowledgeable on Woundcare Completed Left back surgical incision open to air. Pt. cleanseing daily with soap and water. documented in this encounter Care Teams Architectural Draftsman Relationship Specialty Start Date End Date Ross Espinosa MD [address] [place] [address] PCP - General 06/11/21 03/02/22 documented as of this encounter
--- OUTSIDE RECORDS SUMMARY | 2024-09-12 15:43 | XMS_ITS | Encounter Summary ---
Author Organization [facility] Home Care Servic es Address [address] [place] [address] Phone Care Team Providers Care Otr Refrigerated Cdl Truck Driver Name Role Phone Ross Espinosa MD Primary Care Provider [phone] [phone] Encounter Details Date Type Department Care Team (Late st Contact Info) Description 07/13/2021 Orders Only [facility] Care Services [address] [place] [address] Forrest Blackman [facility] Social History Tobacco Use Types Packs/Day Years Used Date Smoking Tobacco: Former Cigarettes Q uit: 08/22/2009 Smokeless Tobacco: Never Sex and Gender Information Value Date Recorded Sex Assigned at Not on file Legal Sex Male 1:43 PM CDT Gender Identity Male 08/12/2022 2:14 PM SOCK FOLDER Sexual Orientation Not on file documented as of this encounter Plan of Treatment Not on file documented as of this encounter Visit Diagnoses Not on filedocumented in this encounter Care Teams Otr Refrigerated Cdl Truck Driver Relationship Specialty Start Date End Date Ross Espinosa MD [address] [place] [address] PCP - General 06/11/21 03/02/22 documented as of this encounter
--- OUTSIDE RECORDS SUMMARY | 2024-09-12 15:43 | XMS_ITS | Encounter Summary ---
Author Organization [facility] Healthcare Address [address] [place] [address] Care Team Providers Care Roof Designer Name Role Phone Ross Espinosa MD Primary Care Provider [phone] [phone] Encounter Details Date Type Department Care Team (Late st Contact Info) Description 07/14/2021 5:25 PM ICT SALES REPRESENTATIVE Lab [address] [address] Social History Tobacco Use Types Packs/Day Years Used Date Smoking Tobacco: Former Cigarettes Q uit: 08/22/2009 Smokeless Tobacco: Never Sex and Gender Information Value Date Recorded Sex Assigned at Not on file Legal Sex Male 1:43 PM CDT Gender Identity Male 08/12/2022 2:14 PM ICT SALES REPRESENTATIVE Sexual Orientation Not on file documented as of this encounter Plan of Treatment Not on file documented as of this encounter Procedures Procedure Name Priority Date/Time Associated Diagnosis Comments GLUCOSE, RANDOM (OUTREACH) Routine 07/14/2021 12:45 PM ICT SALES REPRESENTATIVE EGFR Routine 07/14/2021 12:45 PM ICT SALES REPRESENTATIVE DIFFERENTIAL AUTO Routine 07/14/2021 12: 45 PM ICT SALES REPRESENTATIVE COMPREHENSIVE METABOLIC PANEL WITHOUT GLUCOSE (OUTREACH) Routine 07/14/2021 12:45 PM ICT SALES REPRESENTATIVE CBC WITH AUTO DIFFERENTIAL Routine 07/14/2021 12:45 PM ICT SALES REPRESENTATIVE documented in this encounter Results * (ABNORMAL) eGFR (07/14/2021 12:45 PM ICT SALES REPRESENTATIVE) eGFR 40(L) 90 - 130 mL/min/1.[address] [facility] Comment: Interpretive Data Reference Interval Normal ?>/= 90 mL/min/1.73m2 Mildly decreased* ? 60 - 89 mL/min/1.73m2 Mildly to moderately decreased ?45 - 59 mL/min/1.73m2 Moderately to severely decreased ??30 - 44 mL/min/1.73m2 Severely decreased ?15 - 29 mL/min/1.73m2 Kidney Failure ?< 15 ??mL/min/1.73m2 *Relative to young adult level Estimated glomerular filtration rate is determined by the CKD-EPI equation recommended by the National Kidney Foundation (KDIGO 2012 Clinical Practice Guideline for the Evaluation and Management of Chronic Kidney Disease. Kidney Intnl Suppl Aug 2012;3:1). The CKD-EPI equation should not be used for patients with unstable renal function and has not been validated in children and those over 70. Current interpretive data was last reviewed 2020 Blood 07/14/2021 12:4 5 PM ICT SALES REPRESENTATIVE 07/14/2021 5:37 PM ICT SALES REPRESENTATIVE us Noah Espinosa MD LAB BLOOD ORDERABLES F inal Result [facility] Department [place] [address] * (ABNORMAL) Differential, auto (07/14/2021 12:45 PM ICT SALES REPRESENTATIVE) Neutrophil abs 7.7(H) 1.7 - 6.5 K/cumm [facility] Imm gran abs 0.1 0.0 - 0.1 K/cumm [facility] Lymphocyte abs 1.0 0.8 - 3.3 K/cumm [facility] Monocyte abs 0.7 0.2 - 0.8 K/cumm [facility] Eosinophil abs 0.1 0.0 - 0.5 K/cumm [facility] Basophil abs 0.1 0.0 - 0.1 K/cumm [facility] Neutrophil pct 79.4 % [facility] Comment: Interpretive Data Percent cell count reference ranges are not reported, since discordance with absolute values may lead to misinterpretation of CBC data. Current Interpretive Data was last revised on 2017. Imm gran pct 0.7 % [facility] Comment: Interpretive Data Percent cell count reference ranges are not reported, since discordance with absolute values may lead to misinterpretation of CBC data. Current Interpretive Data was last revised on 2017. Lymphocyte pct 10.6 % [facility] Comment: Interpretive Data Percent cell count reference ranges are not reported, since discordance with absolute values may lead to misinterpretation of CBC data. Current Interpretive Data was last revised on 2017. Monocyte pct 7.4 % [facility] Comment: Interpretive Data Percent cell count reference ranges are not reported, since discordance with absolute values may lead to misinterpretation of CBC data. Current Interpretive Data was last revised on 2017. Eosinophil pct 1.2 % [facility] Comment: Interpretive Data Percent cell count reference ranges are not reported, since discordance with absolute values may lead to misinterpretation of CBC data. Current Interpretive Data was last revised on 2017. Basophil pct 0.7 % [facility] Comment: Interpretive Data Percent cell count reference ranges are not reported, since discordance with absolute values may lead to misinterpretation of CBC data. Current Interpretive Data was last revised on 2017. Blood 07/14/2021 12:4 5 PM ICT SALES REPRESENTATIVE 07/14/2021 5:28 PM ICT SALES REPRESENTATIVE us Noah Espinosa MD LAB BLOOD ORDERABLES F inal Result [facility] [place] [address] * (ABNORMAL) CBC with auto differential (07/14/2021 12:45 PM ICT SALES REPRESENTATIVE) [facility] WBC 9.7 3.8 - 9.9 K/cumm [facility] Hgb 9.3(L) 13.0 - 17.5 g/dL [facility] Hct 30.6(L) 38.9 - 50.3 % [facility] Plt 266 150 - 400 K/cumm [facility] MPV 9.6 9.1 - 12.3 fL [facility] RBC 3.22(L) 4.30 - 5.80 M/cumm [facility] MCV 95.0 81.3 - 96.4 fL [facility] MCH 28.9 27.1 - 33.3 pg [facility] MCHC 30.4(L) 32.3 - 35.7 g/dL [facility] RDW CV 16.3(H) 11.1 - 14.9 % [facility] RDW SD 56.7(H) 35.7 - 48.1 fL [facility] NRBC abs 0.00 0.00 - 0.01 K/cumm [facility] Blood 07/14/2021 12:4 5 PM ICT SALES REPRESENTATIVE 07/14/2021 5:28 PM ICT SALES REPRESENTATIVE us Noah Espinosa MD LAB BLOOD ORDERABLES F inal Result [facility] [place] [address] * Glucose, random (Outreach) (07/14/2021 12:45 PM ICT SALES REPRESENTATIVE) [facility] Glucose 116 70 - 199 mg/dL [facility] Comment: Interpretive Data Fasting glucose >/= 126 mg/dl is diagnostic for diabetes. ?? Fasting is defined as no caloric intake for at least 8 hours. Fasting glucose between 100 mg/dl to 125 mg/dl is diagnostic of prediabetes. In a patient with classic symptoms of hyperglycemia or hyperglycemic crisis, a random glucose >/= 200 mg/dl is diagnostic for diabetes. In the absence of unequivocal hyperglycemia, results should be confirmed by repeat testing. The classification and Diagnosis of Diabetes Diabetes Care 2017;40 (Suppl. 1):S11. Current interpretive data was last revised 2017. Blood 07/14/2021 12:4 5 PM ICT SALES REPRESENTATIVE 07/14/2021 5:28 PM ICT SALES REPRESENTATIVE Noah Espinosa MD LAB BLOOD ORDERABLES F inal Result Performing Organization Address [facility]/ZIP Co de Phone Number [facility] Department [place] [address] * (ABNORMAL) Comprehensive metabolic panel, without glucose (Outreach) (07/14/2021 12:45 PM ICT SALES REPRESENTATIVE) Sodium 137 135 - 145 mmol/L [facility] Potassium, pl 3.8 3.3 - 4.9 mmol/L [facility] Chloride 102 97 - 110 mmol/L [facility] CO2 29 22 - 32 mmol/L [facility] Anion gap 6 2 - 15 mmol/L [facility] BUN 17 8 - 25 mg/dL [facility] Creatinine 1.71(H) 0.80 - 1.30 mg/dL [facility] Calcium 8.3(L) 8.5 - 10.3 mg/dL [facility] Protein, pl 7.7 6.5 - 8.5 g/dL [facility] Albumin 2.7(L) 3.5 - 5.0 g/dL [facility] Bilirubin, total 0.2 0.1 - 1.2 mg/dL [facility] Alk phos 85 40 - 130 Units/L [facility] AST 26 10 - 50 Units/L [facility] ALT 11 7 - 55 Units/L [facility] Blood 07/14/2021 12:4 5 PM ICT SALES REPRESENTATIVE 07/14/2021 5:28 PM ICT SALES REPRESENTATIVE Noah Espinosa MD LAB BLOOD ORDERABLES F inal Result Performing Organization Address City/[facility]/ZIP Co de Phone Number [facility] [place] [address] documented in this encounter Visit Diagnoses Not on filedocumented in this encounter Care Teams Roof Designer Relationship Specialty Start Date End Date Ross Espinosa MD [address] [place] [address] PCP - General 06/11/21 03/02/22 documented as of this encounter
--- OUTSIDE RECORDS SUMMARY | 2024-09-12 15:43 | XMS_ITS | Encounter Summary ---
Author Organization [facility] Address [address] [place] [address] Phone Care Team Providers Care Corporate Account Executive Name Role Phone Ross Espinosa MD Primary Care Provider [phone] Encounter Details Date Type Department Care Team (Late st Contact Info) Description 07/14/2021 Orders Only [facility] Infectious Diseases [address] [place] [phone] Shanice George Empyema (CMS/HCC) (HCC) (Primary Dx) Social History Tobacco Use Types Packs/Day Years Used Date Smoking Tobacco: Former Cigarettes Q uit: 08/22/2009 Smokeless Tobacco: Never Sex and Gender Information Value Date Recorded Sex Assigned at Not on file Legal Sex Male 1:43 PM CDT Gender Identity Male 08/12/2022 2:14 PM INSTALLER APPRENTICE Sexual Orientation Not on file documented as of this encounter Plan of Treatment Not on file documented as of this encounter Visit Diagnoses Diagnosis Empyema (CMS/HCC) (HCC)- Primary documented in this encounter Care Teams Corporate Account Executive Relationship Specialty Start Date End Date Ross Espinosa MD [address] [place] [address] PCP - General 06/11/21 03/02/22 documented as of this encounter
--- OUTSIDE RECORDS SUMMARY | 2024-09-12 15:43 | XMS_ITS | Encounter Summary ---
Author Organization [facility] Healthcare Address [address] [place] [address] Care Team Providers Care Music Composition Teacher Name Role Phone Ross Espinosa MD Primary Care Provider [phone] [phone] Reason for Referral * Diagnostic Imaging (Routine) - Closed Specialty Diagnoses / Procedures Referred By Contac t Referred To Contact Diagnoses Empyema lung (CMS/HCC) (HCC) Procedures X-ray chest 2 views Benny Carpenter MD [address] [facility] [address] [address] Phone: tel: fax: [address] [address] Referral ID Status Reason Start Date Expiration Date Visits Re quested Visits Authorized [id number] Closed 07/13/2021 08/12/2022 1 1 SCRIPTS ARCHIVIST Reason for Visit * Diagnostic Imaging (Routine) - Closed Specialty Diagnoses / Procedures Referred By Contac t Referred To Contact Diagnoses Empyema lung (CMS/HCC) (HCC) Procedures X-ray chest 2 views Benny Carpenter MD [address] [address] Phone: tel: fax: [address] [phone] Referral ID Status Reason Start Date Expiration Date Visits Re quested Visits Authorized [id number] Closed 07/13/2021 08/12/2022 1 1 Encounter Details Date Type Department Care Team (Latest Contact Info) Description 07/13/2021 9:56 AM MANUSCRIPTS ARCHIVIST - 07/13/2021 11:59 PM MANUSCRIPTS ARCHIVIST Hospital Encounter [facility] MOB 1 DIAG IMG [address] [place] [address] Empyema lung (CMS/HCC) (HCC) Discharge Disposition: Discharge to home or self care Social History Tobacco Use Types Packs/Day Years Used Date Smoking Tobacco: Former Cigarettes Q uit: 08/22/2009 Smokeless Tobacco: Never Sex and Gender Information Value Date Recorded Sex Assigned at Not on file Legal Sex Male 1:43 PM CDT Gender Identity Male 08/12/2022 2:14 PM MANUSCRIPTS ARCHIVIST Sexual Orientation Not on file documented as of this encounter Medications at Time of Discharge acetaminophen 500 mg capsule Take 2 capsules (1,000 mg total) by mouth every 6 (six) hours 30 tablet 1 albuterol 2.5 mg /3 mL (0.083 %) nebulizer solution Take 3 mL (2.5 mg total) by nebulization as needed 1 albuterol HFA (PROVENTIL HFA,VENTOLIN HFA,PROAIR HFA) 90 mcg/actuation inhaler INHALE 2 PUFFS EVERY 4 HOURS BY INHALATION ROUTE NEEDED FOR 30 DAYS. 1 carvediloL (COREG) 25 mg tablet Take 1 tablet (25 mg total) by mouth 2 (two) times a day 1 doxepin (SINEquan) 25 mg capsule Take 1 capsule (25 mg total) by mouth nightly as needed 1 dupilumab (DUPIXENT) syringe Inject 2 mL (300 mg total) under the skin every 14 (fourteen) days gabapentin (NEURONTIN) 300 mg capsule Take 1 capsule (300 mg total) by mouth daily as needed oxygenIndications:D yspnea Administer 2 L/min into each nostril as needed (hypoxia) 1 tamsulosin (FLOMAX) 0.4 mg extended release capsule Take 2 capsules (0.8 mg total) by mouth daily with dinner 1 traMADoL (ULTRAM) 50 mg tablet Take 1 tablet (50 mg total) by mouth every 6 (six) hours as needed 1 doxycycline (MONODOX) 100 mg capsuleIndications: empyema Take 1 capsule (100 mg total) by mouth 2 (two) times a day 60 capsule 1 07/23/20 21 metroNIDAZOLE (FLAGYL) 500 mg tabletIndications:e mpyema Take 1 tablet (500 mg total) by mouth 3 (three) times a day 90 tablet 1 1 09/21/19 22 ondansetron ODT (ZOFRAN-ODT) 4 mg disintegrating tabletIndications:E mpyema (CMS/HCC) (HCC) Take 1 tablet (4 mg total) by mouth every 8 (eight) hours as needed for nausea or vomiting for up to 10 days 20 tablet 1 07/23/20 21 apixaban (ELIQUIS) 2.5 mg tablet Take 2.5 mg by mouth 2 (two) times a day 12/31/19 22 atorvastatin (LIPITOR) 40 mg tablet Take 40 mg by mouth daily 1 03/17/20 22 cephalexin (KEFLEX) 500 mg capsuleIndications: Empyema (CMS/HCC) (HCC) [The details of the medication are not available because there are pending changes by a home health clinician.] 42 capsule 07/20/20 21 cetirizine 10 mg capsule Take by mouth 01/26/20 24 clopidogreL (PLAVIX) 75 mg tablet Take 1 tablet (75 mg total) by mouth daily 1 05/04/20 23 heparin sod,porcine/0.9 % NaCl (HEPARIN FLUSH IV)Indications:Flus gaetano Infuse 5 mL into a venous catheter daily. Heparin 50 units/5ml Flush both lines daily after last saline flush Indications: temporary redness of face and neck 10/22/19 22 melatonin 5 mg capsule Take by mouth 01/26/20 24 multivitamin capsule Take 1 capsule by mouth daily 01/26/20 24 omeprazole (PriLOSEC) 20 mg capsule TAKE 1 CAPSULE BY MOUTH EVERY MORNING BEFORE BREAKFAST 1 10/22/19 22 oxyCODONE (ROXICODONE) 5 mg immediate release tabletIndications:P ain Take 1 tablet (5 mg total) by mouth every 4 (four) hours as needed for pain 60 tablet 10/22/19 22 polyethylene glycol (MIRALAX) 17 gram packetIndications:c onstipation Take 1 packet (17 g total) by mouth daily 10/22/19 22 sodium chloride 0.9% (Normal Saline Flush) injectionIndication s:Flushing Infuse 10 mL into a venous catheter daily. Flush before and after iv antibiotic therapy. Flush 2nd lumen daily with saline followed by heparin Indications: temporary redness of face and neck 10/22/19 22 Spiriva Respimat 2.5 mcg/actuation inhaler INHALE 2 PUFFS BY MOUTH ONCE DAILY 08/24/19 25 documented as of this encounter Discharge Disposition Disposition Code Departure Means Destination Discharge to home or self care documented in this encounter Plan of Treatment Not on file documented as of this encounter Procedures Procedure Name Priority Date/Time Associated Diagnosis Comments XR CHEST PA LATERAL 2 VIEWS Schedule Routine, Read Routine (OP Routine) 07/13/2021 10:05 AM MANUSCRIPTS ARCHIVIST Empyema lung (CMS/HCC) (HCC) documented in this encounter Results * X-ray chest 2 views (07/13/2021 10:05 AM MANUSCRIPTS ARCHIVIST) Anatomical Region Laterality Modality Body, Chest N/A Computed Radiogr aphy 07/13/2021 2:11 PM MANUSCRIPTS ARCHIVIST Narrative 07/13/2021 2:14 PM MANUSCRIPTS ARCHIVIST EXAM DESCRIPTION: ?? XR CHEST PA LATERAL 2 VIEWS REASON FOR STUDY: ?? Congestion for 3 days. ??Empyema. TECHNIQUE: ?? Frontal ??and lateral radiographic views of the chest acquired. COMPARISON: ?? 06/17/2021. FINDINGS: LUNGS/PLEURA: ?? Small to moderate-sized left pleural effusion, similar in volume to the previous examination. ??Ill-defined airspace opacities in the mid to lower left lung could represent areas of atelectasis or correlate with areas of peribronchial consolidation seen on recent CT. ??Mild interstitial opacities in the lower lungs, particularly in the right lower lobe, including Chantelle B lines, most suggestive of edema. ??No pleural effusion noted on the right. ??No pneumothorax on either side. HEART/MEDIASTINUM: ?? Mild cardiomegaly. ??Calcified plaques in the thoracic aorta. ??The mediastinal contour is stable. HARDWARE/LINES/TUBES: ?? Left implantable cardiac pacer in unchanged position. ?? New right internal jugular central venous catheter terminates in the superior vena cava. BONES: ?? No acute findings. OTHER: ?? No other significant finding. IMPRESSION: ?? 1. ?? Unchanged small to moderate-sized left pleural effusion. 2. ?? Mild areas of ill-defined airspace opacification in the left lung base could represent areas of atelectasis or infection. ??Findings have decreased since the previous study. 3. ?? New mild interstitial opacities in the lower lungs, suggestive of edema. THIS IS AN ELECTRONICALLY VERIFIED FINAL REPORT 07/13/2021 2:14 PM - Electronically signed by ??Lester Flores M.D. RL: BACILIO D: ??07/13/2021 2:14 PM T: ??07/13/2021 2:14 PM Report ID: [id number] [place] Location: ??[id number] Procedure Note Lester Heredia MD - 07/13/2021 EXAM DESCRIPTION: XR CHEST PA LATERAL 2 VIEWS REASON FOR STUDY: Congestion for 3 days. Empyema. TECHNIQUE: Frontal and lateral radiographic views of the chestacquired. COMPARISON: 06/17/2021. FINDINGS: LUNGS/PLEURA: Small to moderate-sized left pleural effusion, similar in volume to the previous examination. Ill-defined airspace opacities in themid to lower left lung could represent areas of atelectasis or correlate with areas of peribronchial consolidation seen on recent CT. Mild interstitial opacities in the lower lungs, particularly in the right lower lobe,including Chantelle B lines, most suggestive of edema. No pleural effusion noted onthe right. No pneumothorax on either side. HEART/MEDIASTINUM: Mild cardiomegaly. Calcified plaques in the thoracic aorta. The mediastinal contour is stable. HARDWARE/LINES/TUBES: Left implantable cardiac pacer in unchangedposition. New right internal jugular central venous catheter terminates in thesuperior vena cava. BONES: No acute findings. OTHER: No other significant finding. IMPRESSION: 1. Unchanged small to moderate-sized left pleural effusion. 2. Mild areas of ill-defined airspace opacification in the left lungbase could represent areas of atelectasis or infection. Findings havedecreased since the previous study. 3. New mild interstitial opacities in the lower lungs, suggestive ofedema. THIS IS AN ELECTRONICALLY VERIFIED FINAL REPORT 07/13/2021 2:14 PM - Electronically signed by Lester Flores M.D. RL: BACILIO Report ID: [id number] [place] Location: [place] [address] Benny López MD IMG XR PROCEDURES Final Result documented in this encounter Visit Diagnoses Diagnosis Empyema lung (CMS/HCC) (HCC) Empyema without mention of fistula documented in this encounter Care Teams Music Composition Teacher Relationship Specialty Start Date End Date Ross Espinosa MD [address] [place] [address] PCP - General 06/11/21 03/02/22 documented as of this encounter
--- OUTSIDE RECORDS SUMMARY | 2024-09-12 15:43 | XMS_ITS | Encounter Summary ---
Author Organization [facility] Address [address] [place] [address] Phone Care Team Providers Care Field Court Researcher Name Role Phone Ross Espinosa MD Primary Care Provider [phone] Encounter Details Date Type Department Care Team (Late st Contact Info) Description 07/15/2021 Telephone [facility] Infectious Diseases [address] [place] [address] [address] [place] [address] Nita Miller, [facility] Social History Tobacco Use Types Packs/Day Years Used Date Smoking Tobacco: Former Cigarettes Q uit: 08/22/2009 Smokeless Tobacco: Never Sex and Gender Information Value Date Recorded Sex Assigned at Not on file Legal Sex Male 1:43 PM CDT Gender Identity Male 08/12/2022 2:14 PM FIREARMS SPECIALIST Sexual Orientation Not on file documented as of this encounter Miscellaneous Notes * Telephone Encounter - Jacey Holloway NP - 07/20/2021 8:46 AM FIREARMS SPECIALIST Shanice, Thank you for the update. With us he is just on 3 abx and Zofran and is a firm stop x 2 weeks. We will just need to keep in touch to make sure at some point Geraldine is removed. Thank you, Jacey Holloway ARMS SPECIALIST * Telephone Encounter - Shanice George - 07/20/2021 8:17 AM CST OBED Mari I called pt and he is currently admitted to [facility]. He is being treated with antibiotics and lasix due to his SOB. They have done imaging. Not sure what their plan is. Shanice ARMS SPECIALIST * Telephone Encounter - Shanice George - 07/15/2021 11:29 AM CST Please advise as I was asked to set up line removal Thanks Shanice ARMS SPECIALIST * Telephone Encounter - Jacey Holloway NP - 07/15/2021 10:58 AM FIREARMS SPECIALIST Called and spoke with patient today. Overall he is feeling well. He says that taking Zofran with the Cephalexin has been helpful and has not had any nausea or vomiting with medication. He stated he received call about line removal. He was informed by HH they could pull line and he was not wanting to drive up to [place] on Tuesday if he did not have to. Can we reach out with HH regarding this if they can or can't pull line before he drives up. Thank you, Jacey Holloway ARMS SPECIALIST * Telephone Encounter - Nita Miller - 07/15/2021 10:27 AM CST Pt was returning a call back, he says he believes it was concerning getting his PICC line taken out, please call back, ARMS SPECIALIST documented in this encounter Plan of Treatment Not on file documented as of this encounter Visit Diagnoses Not on filedocumented in this encounter Care Teams Field Court Researcher Relationship Specialty Start Date End Date Ross Espinosa MD [address] [place] [address] PCP - General 06/11/21 03/02/22 documented as of this encounter
--- OUTSIDE RECORDS SUMMARY | 2024-09-12 15:43 | XMS_ITS | Encounter Summary ---
Author Organization [facility] Address [address] [place] [address] Phone Care Team Providers Care Restaurant Culinary Manager Name Role Phone Ross Espinosa MD Primary Care Provider [phone] [phone] Encounter Details Date Type Department Care Team (Late st Contact Info) Description 07/13/2021 Orders Only [facility] Infectious Diseases [address] [place] [address] [address] [place] [id number] Jacey Holloway, SHASHANK [address] [place] [address] Empyema (CMS/HCC) (HCC) (Primary Dx) Social History Tobacco Use Types Packs/Day Years Used Date Smoking Tobacco: Former Cigarettes Q uit: 08/22/2009 Smokeless Tobacco: Never Sex and Gender Information Value Date Recorded Sex Assigned at Not on file Legal Sex Male 1:43 PM CDT Gender Identity Male 08/12/2022 2:14 PM LINE WALKER Sexual Orientation Not on file documented as of this encounter Ordered Prescriptions Prescription Sig Dispense Quantity Refills Last Filled Start Date End Date ondansetron ODT (ZOFRAN-ODT) 4 mg disintegrating tabletIndications:Em pyema (CMS/HCC) (HCC) Take 1 tablet (4 mg total) by mouth every 8 (eight) hours as needed for nausea or vomiting for up to 10 days 20 tablet 07/13/2021 12/02/202 1 documented in this encounter Progress Notes * Jacey Holloway NP - 07/13/2021 12:37 PM CST Zofran sent to pharmacy. Will try Zofran with Cephalexin to help with Nausea and Vomiting. WALKER documented in this encounter Plan of Treatment Not on file documented as of this encounter Visit Diagnoses Diagnosis Empyema (CMS/HCC) (HCC)- Primary documented in this encounter Care Teams Restaurant Culinary Manager Relationship Specialty Start Date End Date Ross Espinosa MD [address] [place] [address] PCP - General 06/11/21 03/02/22 documented as of this encounter
--- OUTSIDE RECORDS SUMMARY | 2024-09-12 15:43 | XMS_ITS | Encounter Summary ---
Author Organization [facility] Address [address] [place] [address] Phone Care Team Providers Care Electrical Experimental Mechanic Name Role Phone Ross Espinosa MD Primary Care Provider [phone] [phone] Reason for Visit * Auth/Cert Specialty Diagnoses / Procedures Referred By Bintaac t Referred To Contact Referral ID Status Reason Start Date Expiration Date Visits Re quested Visits Authorized [id number] 1 1 Encounter Details Date Type Department Care Team (Late st Contact Info) Description 07/16/2021 Home Care Visit [facility] Home Health [address] [address] [address] [place] [address] Estela Oshea COTA TRAVEL SCREENING CASE COMMUNICATION Social History Tobacco Use Types Packs/Day Years Used Date Smoking Tobacco: Former Cigarettes Q uit: 08/22/2009 Smokeless Tobacco: Never Sex and Gender Information Value Date Recorded Sex Assigned at Not on file Legal Sex Male 1:43 PM CDT Gender Identity Male 08/12/2022 2:14 PM FARM LABOR CONTRACTOR Sexual Orientation Not on file documented as of this encounter Plan of Treatment Not on file documented as of this encounter Visit Diagnoses Not on filedocumented in this encounter Care Teams Electrical Experimental Mechanic Relationship Specialty Start Date End Date Ross Espinosa MD [address] [place] [address] PCP - General 06/11/21 03/02/22 documented as of this encounter
--- OUTSIDE RECORDS SUMMARY | 2024-09-12 15:43 | XMS_ITS | Encounter Summary ---
Author Organization [facility] Home Care [facility] es Address [address] [place] [address] Phone Care Team Providers Care Division Plant Engineer Name Role Phone Ross Espinosa MD Primary Care Provider [phone] [phone] Reason for Visit * Reason Comments Shortness of Breath * Auth/Cert Specialty Diagnoses / Procedures Referred By Contmallorie t Referred To Contact Referral ID Status Reason Start Date Expiration Date Visits Re quested Visits Authorized [id number] 1 1 Encounter Details Date Type Department Care Team (Late st Contact Info) Description 07/15/2021 3:30 PM RADIOTELEPHONE OPERATOR Home Care Visit [facility] [address] [address] [address] [place] [address] Estela Oshea COTA OT HOME VISIT Social History Tobacco Use Types Packs/Day Years Used Date Smoking Tobacco: Former Cigarettes Q uit: 08/22/2009 Smokeless Tobacco: Never Sex and Gender Information Value Date Recorded Sex Assigned at Not on file Legal Sex Male 1:43 PM CDT Gender Identity Male 08/12/2022 2:14 PM RADIOTELEPHONE OPERATOR Sexual Orientation Not on file documented as of this encounter Last Filed Vital Signs Vital Sign [place] Time Taken Comments Blood Pressure 141/84 07/15/2021 4:02 PM RADIOTELEPHONE OPERATOR Pulse 83 07/15/2021 4:02 PM RADIOTELEPHONE OPERATOR Temperature 36.2 ??C (97.2 ??F) 07/15/2021 4:02 PM CS T Respiratory Rate 18 07/15/2021 4:02 PM RADIOTELEPHONE OPERATOR Oxygen Saturation 99% 07/15/2021 4:02 PM RADIOTELEPHONE OPERATOR Inhaled Oxygen Concentration - - Weight - - Height - - Body Mass Index - - documented in this encounter Plan of Treatment Not on file documented as of this encounter Visit Diagnoses Not on filedocumented in this encounter Home Health Visit - Care Plan Visit Details Visit Type -OT Home Visit Discipline -Occupational Therapy Problems Problem Description Start Date Status [...] visit Knowledge Deficit - Wound Care Disciplines: Senior Living, Physical Therapy, Occupational Therapy, Home Health Aide Deficiency of cognitive information related to wound care 06/25/2021 Active 1 goal linked to scheduled/docume nted intervention 1 goal intervention scheduled/documen darrion in this visit OT Activity Tolerance/Energy Conservation Disciplines: Occupational Therapy Impaired activity tolerance for functional activity 06/30/2021 Active - 1 problem intervention scheduled/documen darrion in this visit OT Impaired UE Function and/or Fine Motor Skills Disciplines: Occupational Therapy Impaired functional use of upper extremity 06/30/2021 Active - 1 problem intervention scheduled/documen darrion in this visit OT Impaired ADLs Disciplines: Occupational Therapy Impaired independence in self-care, ADLs. 06/30/2021 Active - 1 problem intervention scheduled/documen darrion in this visit Goals Goal Associated Problem Outcome Goal Met? Visit Notes Patient recieves care at the most appropriate care setting Description: Patient receives care at the most appropriate care setting. Homebound Status No Measure vital signs during every home health visit during episode of care Description: Home char belt operator to measure vital signs during every home [...] health visit during episode of care Completed Wound care Description: Wash left back surgical site with soap and water daily and pat dry. Leave open to air. May cover with dry dressing and secure with tape daily, if has drainage and as needed if becomes soiled or dislodged. Wound care by Sn/pt/caregiver. Problem:Knowledge Deficit - Wound Care Goal:Knowledgeable on Woundcare Scheduled Energy Conservation Education Description: Instruct patient/caregiver in techniques for improved activity tolerance Problem:OT Activity Tolerance/Energy Conservation Completed Ed patient in techniques for improved activity tolerance; work simplification, rest breaks, pacing, and breathing tech to improve ability to engage in daily occupations. Pt verbalized understanding. Home Exercise Program (HEP) Description: Instruct patient/caregiver and perform HEP. Problem:OT Impaired UE Function and/or Fine Motor Skills Completed Pt ed in UE resistance band HEP x 10 reps in elbow and shoulder planes using yellow tband and UE AROM HEP without wts x 10 reps; Chest press, Chest pulls, Lateral raise, Front raise, Upright row, Bicep curl, Overhead press, and modified Tricep press (arm chair push up) to improve cardiovascular endurance for daily occupations. Pt verbalized understanding. Good return demo. Pt made no c/o pain. ADL Instruction Description: Instruct patient/caregiver for improved ADL performance. Problem:OT Impaired ADLs Completed Pt reported difficulty donning socks. Recommendation for pt to obtain sockaid to include how to obtain. Pt verbalized understanding. documented in this encounter Home Health Visit - Actions and Narratives Actions Pt presents with sob with mi nimal exertion, needs assist of one and walker to leave home and needs frequent rest breaks. Today's interventions: instruction in energy conservation, HEP, and transfers to support ADL function. See interventions section for further details of today's home visit. documented in this encounter Care Teams Division Plant Engineer Relationship Specialty Start Date End Date Ross Espinosa MD [address] [place] [address] PCP - General 06/11/21 03/02/22 documented as of this encounter
--- OUTSIDE RECORDS SUMMARY | 2024-09-12 15:43 | XMS_ITS | Encounter Summary ---
Author Organization [facility] Home Care [facility] es Address [address] [place] [address] Phone Care Team Providers Care Assembler Equipment Name Role Phone Ross Espinosa MD Primary Care Provider [phone] [phone] Reason for Visit * Auth/Cert Specialty Diagnoses / Procedures Referred By Jovany t Referred To Contact Referral ID Status Reason Start Date Expiration Date Visits Re quested Visits Authorized [id number] 1 1 Encounter Details Date Type Department Care Team (Late st Contact Info) Description 07/17/2021 Home Care Visit [facility] Home Health [address] [place] [address] Peggy Ramirez, RN TELEPHONE ENCOUNTER Social History Tobacco Use Types Packs/Day Years Used Date Smoking Tobacco: Former Cigarettes Q uit: 08/22/2009 Smokeless Tobacco: Never Sex and Gender Information Value Date Recorded Sex Assigned at Not on file Legal Sex Male 1:43 PM CDT Gender Identity Male 08/12/2022 2:14 PM BUMPER AND PAINTER Sexual Orientation Not on file documented as of this encounter Plan of Treatment Not on file documented as of this encounter Visit Diagnoses Not on filedocumented in this encounter Care Teams Assembler Equipment Relationship Specialty Start Date End Date Ross Espinosa MD [address] [place] [address] PCP - General 06/11/21 03/02/22 documented as of this encounter
--- OUTSIDE RECORDS SUMMARY | 2024-09-12 15:43 | XMS_ITS | Encounter Summary ---
Author Organization [facility] Healthcare Address [address] [place] [address] Care Team Providers Care Emu Farm Worker Name Role Phone Ross Espinosa MD Primary Care Provider [phone] Encounter Details Date Type Department Care Team (Late st Contact Info) Description 07/15/2021 Telephone [facility] Radiology [address] [place] [address] Anna Ocampo RN Social History Tobacco Use Types Packs/Day Years Used Date Smoking Tobacco: Former Cigarettes Q uit: 08/22/2009 Smokeless Tobacco: Never Sex and Gender Information Value Date Recorded Sex Assigned at Not on file Legal Sex Male 1:43 PM CDT Gender Identity Male 08/12/2022 2:14 PM WELDING MACHINE OPERATOR GAS Sexual Orientation Not on file documented as of this encounter Miscellaneous Notes * Telephone Encounter - Anna Ocampo RN - 07/15/2021 4:35 PM WELDING MACHINE OPERATOR GAS No answer SS ING MACHINE OPERATOR GAS documented in this encounter Plan of Treatment Not on file documented as of this encounter Visit Diagnoses Not on filedocumented in this encounter Care Teams Emu Farm Worker Relationship Specialty Start Date End Date Ross Espinosa MD [address] [place] [address] PCP - General 06/11/21 03/02/22 documented as of this encounter
--- OUTSIDE RECORDS SUMMARY | 2024-09-12 15:43 | XMS_ITS | Encounter Summary ---
Author Organization [facility] Address [address] [place] [address] Phone Care Team Providers Care Make Up Worker Name Role Phone Ross Espinosa MD Primary Care Provider [phone] [phone] Encounter Details Date Type Department Care Team (Late st Contact Info) Description 07/15/2021 Telephone [facility] Infectious Diseases [address] [place] [address] [address] [place] [address] Shanice George Social History Tobacco Use Types Packs/Day Years Used Date Smoking Tobacco: Former Cigarettes Q uit: 08/22/2009 Smokeless Tobacco: Never Sex and Gender Information Value Date Recorded Sex Assigned at Not on file Legal Sex Male 1:43 PM CDT Gender Identity Male 08/12/2022 2:14 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 Central line removal is set up for Tuesday at 9 at the [facility]. Pt needs to arrive at 8 VE SEWER documented in this encounter Plan of Treatment Not on file documented as of this encounter Visit Diagnoses Not on filedocumented in this encounter Care Teams Make Up Worker Relationship Specialty Start Date End Date Ross Espinosa MD [address] [place] [address] PCP - General 06/11/21 03/02/22 documented as of this encounter
--- OUTSIDE RECORDS SUMMARY | 2024-09-12 15:43 | XMS_ITS | Encounter Summary ---
Author Organization [facility] Address [address] [place] [address] Phone Care Team Providers Care Stitch Bonder Machine Operator Helper Name Role Phone Ross Espinosa MD Primary Care Provider [phone] Reason for Visit * Auth/Cert Specialty Diagnoses / Procedures Referred By Jovany t Referred To Contact Referral ID Status Reason Start Date Expiration Date Visits Re quested Visits Authorized [id number] 1 1 Encounter Details Date Type Department Care Team (Late st Contact Info) Description 07/17/2021 Home Care Visit [facility] Home Health [address] [address] [address] [place] [address] Kenton Fernandez RN TELEPHONE ENCOUNTER Social History Tobacco Use Types Packs/Day Years Used Date Smoking Tobacco: Former Cigarettes Q uit: 08/22/2009 Smokeless Tobacco: Never Sex and Gender Information Value Date Recorded Sex Assigned at Not on file Legal Sex Male 1:43 PM CDT Gender Identity Male 08/12/2022 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
--- OUTSIDE RECORDS SUMMARY | 2024-09-12 15:43 | XMS_ITS | Encounter Summary ---
Author Organization [facility] Address [address] [place] [address] Phone Care Team Providers Care Manager Of Radiology Name Role Phone Ross Espinosa MD Primary Care Provider [phone] [phone] Reason for Visit * Auth/Cert Specialty Diagnoses / Procedures Referred By Jovany t Referred To Contact Referral ID Status Reason Start Date Expiration Date Visits Re quested Visits Authorized [id number] 1 1 Encounter Details Date Type Department Care Team (Late st Contact Info) Description 07/13/2021 3:30 PM DOORS PREFITTER Home Care Visit [facility] Health [address] [address] [address] [place] [address] Kayla Watson CNA AIDE HOME VISIT Social History Tobacco Use Types Packs/Day Years Used Date Smoking Tobacco: Former Cigarettes Q uit: 08/22/2009 Smokeless Tobacco: Never Sex and Gender Information Value Date Recorded Sex Assigned at Not on file Legal Sex Male 1:43 PM CDT Gender Identity Male 08/12/2022 2:14 PM DOORS PREFITTER Sexual Orientation Not on file documented as of this encounter Last Filed Vital Signs Vital Sign Reading Time Taken Comments Blood Pressure 150/78 07/13/2021 2:48 PM DOORS PREFITTER Pulse 92 07/13/2021 2:48 PM DOORS PREFITTER Temperature 36 ??C (96.8 ??F) 07/13/2021 2:48 PM DOORS PREFITTER Respiratory Rate 22 07/13/2021 2:48 PM DOORS PREFITTER Oxygen Saturation 97% 07/13/2021 2:48 PM DOORS PREFITTER Inhaled Oxygen Concentration - - Weight - [...] Completed Aide clean/tidy Description: Tidy patient area, burr picker clutter and store in collaboration with patient. [...] with variance Patient refused Aide assist with oral care Description: Assist [...] as ordered Scheduled with variance Patient refused Pt doesn't wear diapers. Aide assist with transfers Description: Assist with [...] Completed documented in this encounter Care Teams Manager Of Radiology Relationship Specialty Start Date End Date Ross Espinosa MD [address] [place] [address] PCP - General 06/11/21 03/02/22 documented as of this encounter
--- OUTSIDE RECORDS SUMMARY | 2024-09-12 15:43 | XMS_ITS | Encounter Summary ---
Author Organization [facility] Healthcare Address [address] [place] [address] Care Team Providers Care Salt Lifter Name Role Phone Ross Espinosa MD Primary Care Provider [phone] Encounter Details Date Type Department Care Team (Latest Contact Info) Description 07/17/2021 9:25 AM LOAN OFFICER ASSISTANT - 07/17/2021 11:59 PM LOAN OFFICER ASSISTANT Hospital Encounter [facility] Discharge Disposition: Discharge to home or self care Social History Tobacco Use Types Packs/Day Years Used Date Smoking Tobacco: Former Cigarettes Q uit: 08/22/2009 Smokeless Tobacco: Never Sex and Gender Information Value Date Recorded Sex Assigned at Not on file Legal Sex Male 1:43 PM CDT Gender Identity Male 08/12/2022 2:14 PM LOAN OFFICER ASSISTANT Sexual Orientation Not on file documented [...] under the skin every 14 (fourteen) days furosemide (LASIX) 40 mg tabletIndications:p er md advisement Take 1 tablet (40 mg total) by mouth daily gabapentin (NEURONTIN) 300 mg capsule Take 1 capsule (300 mg total) by mouth daily as needed oxygenIndications:D yspnea Administer 2 L/min into each nostril as needed (hypoxia) 1 potassium chloride ER (KLOR-CON) 10 mEq CR tabletIndications:h ypokalemia Take 1 tablet/capsule (10 mEq total) by [...] tablet (75 mg total) by mouth daily 05/04/20 23 heparin sod,porcine/0.9 % NaCl (HEPARIN [...] CAPSULE BY MOUTH EVERY MORNING BEFORE BREAKFAST 10/22/19 22 ONDANSETRON ORALIndications:brigido sea or vomiting Take 4 mg by mouth every 8 (eight) hours as needed (nausea or vomiting). Indications: nausea or vomiting 10/22/19 22 oxyCODONE (ROXICODONE) 5 mg immediate [...] Indications: temporary redness of face and neck 1 10/22/19 22 Spiriva Respimat 2.5 mcg/actuation inhaler INHALE 2 PUFFS BY MOUTH ONCE DAILY 08/24/19 25 documented as of this encounter Discharge Disposition Disposition Code Departure Means Destination Discharge to home or self care documented in this encounter Plan of Treatment Not on file documented as of this encounter Visit Diagnoses Not on filedocumented in this encounter Care Teams Salt Lifter Relationship Specialty Start Date End Date Ross Espinosa MD [address] [place] [address] PCP - General 06/11/21 03/02/22 documented as of this encounter
--- OUTSIDE RECORDS SUMMARY | 2024-09-12 15:44 | XMS_ITS | Encounter Summary ---
Author Organization [facility] Address [address] [place] [address] Phone Care Team Providers Care President Ergonomic Consulting Name Role Phone Ross Espinosa MD Primary Care Provider [phone] Encounter Details Date Type Department Care Team (Late st Contact Info) Description 07/09/2021 Orders Only [facility] [address] [place] [address] Forrest Blackman RPh Empyema (CMS/HCC) (HCC) (Primary Dx) Social History Tobacco Use Types Packs/Day Years Used Date Smoking Tobacco: Former Cigarettes Q uit: 08/22/2009 Smokeless Tobacco: Never Sex and Gender Information Value Date Recorded Sex Assigned at Not on file Legal Sex Male 1:43 PM CDT Gender Identity Male 08/12/2022 2:14 PM TRAIN CREW MEMBER Sexual Orientation Not on file documented as of this encounter Progress Notes * Forrest Blackman RPh - 07/09/2021 4:57 PM CST Order written to extend Ceftriaxone until 07/11/2021, Dr Carrasquillo N CREW MEMBER documented in this encounter Plan of Treatment Not on file documented as of this encounter Visit Diagnoses Diagnosis Empyema (CMS/HCC) (HCC)- Primary documented in this encounter Care Teams President Ergonomic Consulting Relationship Specialty Start Date End Date Ross Espinosa MD [address] [place] [address] PCP - General 06/11/21 03/02/22 documented as of this encounter
--- OUTSIDE RECORDS SUMMARY | 2024-09-12 15:44 | XMS_ITS | Encounter Summary ---
Author Organization [facility] Address [address] [place] [address] Phone Care Team Providers Care Programming Manager Name Role Phone Ross Espinosa MD Primary Care Provider [phone] Reason for Visit * Auth/Cert Specialty Diagnoses / Procedures Referred By Jovany t Referred To Contact Referral ID Status Reason Start Date Expiration Date Visits Re quested Visits Authorized [id number] 1 1 Encounter Details Date Type Department Care Team (Late st Contact Info) Description 07/03/2021 Home Care Visit [facility] Home Health [address] [place] [address] Duglas Gonzales, [facility] TELEPHONE ENCOUNTER Social History Tobacco Use Types Packs/Day Years Used Date Smoking Tobacco: Former Cigarettes Q uit: 08/22/2009 Smokeless Tobacco: Never Sex and Gender Information Value Date Recorded Sex Assigned at Not on file Legal Sex Male 1:43 PM CDT Gender Identity Male 08/12/2022 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
--- OUTSIDE RECORDS SUMMARY | 2024-09-12 15:44 | XMS_ITS | Encounter Summary ---
Author Organization [facility] Address [address] [place] [address] Phone Care Team Providers Care Lithographers Printer Name Role Phone Ross Espinosa MD Primary Care Provider [phone] Reason for Referral * Diagnostic Imaging (Routine) - Closed Specialty Diagnoses / Procedures Referred By Jovany carver Referred To Contact Diagnoses Empyema lung (CMS/HCC) (HCC) Procedures X-ray chest 2 views Benny Carpenter MD [address] [place] [address] Phone: tel: fax: [facility] [address] [place] [phone] Referral ID Status Reason Start Date Expiration Date Visits Re quested Visits Authorized [id number] Closed 07/13/2021 08/12/2022 1 1 ING FLOOR WORKER Reason for Visit * Reason Comments Follow-up Encounter Details Date Type Department Care Team (Late st Contact Info) Description 07/13/2021 9:00 AM PACKING FLOOR WORKER Office Visit [facility] Surgery [address] [facility] [address] [place] [phone] Benny Carpenter MD [address] [place] [address] Empyema lung (CMS/HCC) (HCC) (Primary Dx) Social History Tobacco Use Types Packs/Day Years Used Date Smoking Tobacco: Former Cigarettes Q uit: 08/22/2009 Smokeless Tobacco: Never Sex and Gender Information Value Date Recorded Sex Assigned at Not on file Legal Sex Male 1:43 PM CDT Gender Identity Male 08/12/2022 2:14 PM PACKING FLOOR WORKER Sexual Orientation Not on file documented as of this encounter Last Filed Vital Signs Vital Sign Reading Time Taken Comments Blood Pressure 158/101 07/13/2021 9:20 AM PACKING FLOOR WORKER Pt did not take meds this morning Pulse 102 07/13/2021 9:20 AM PACKING FLOOR WORKER Temperature 36.2 ??C (97.2 ??F) 07/13/2021 9 :20 AM PACKING FLOOR WORKER Respiratory Rate 18 07/13/2021 9:20 AM PACKING FLOOR WORKER Oxygen Saturation 95% 07/13/2021 9:2 0 AM PACKING FLOOR WORKER Inhaled Oxygen Concentration - - Weight 95.9 kg (211 lb 6.4 oz) 07/13/2021 9:20 AM PACKING FLOOR WORKER Height 172.7 cm (5' 8) 07/13/2021 9:20 AM PACKING FLOOR WORKER Body Mass Index 32.14 07/13/2021 9:20 AM PACKING FLOOR WORKER documented in this encounter Progress Notes * Benny Carpenter MD - 07/13/2021 9:00 AM CST [facility] Thoracic Surgery Note 07/13/2021 MD Freddy Thorne 1950 Dear Ross Espinosa MD: I was pleased to see Freddy Hill in follow-up. As you know, he is a 70 y.o. male patient who wastransferred to my service after he presented to an outside hospital with a complex left side empyema. The patient had had a bout of pneumonia 4 weeks before presentation. He was taken to the OR for aleft thoracotomyempyectomy and decortication of the lung. His case was uneventful and he was eventually discharged home. He comes today for his 1st follow-up appointment after surgery. Today he denies any chest pain, fevers or chills. However, he is complaining of shortness of breath. He is here for further evaluation. I saw the patient in clinic today with Ella Ellis NP. I have reviewed and agree with the past medical history, social history, family history and review of systems entered into the medical record. We also reviewed and updated the medication list and allergies. On physical exam, patient is well appearing and in no acute distress. I have reviewed the vital signs taken in clinic today. No icterus. No cervical or supraclavicular adenopathy. Breath sounds are clear bilaterally. Left thoracotomy incision is healing well there is no signs of infection Cardiac exam is regular rate and rhythm. Abdomen is soft and nontender. There is no lower extremity edema. Skin is warm and dry. Mood and affect are normal. Patient is alert and oriented x 3. I have independently reviewed the chest x-ray from today. It shows a small left pleural effusion which is smaller from the previous chest x-ray. There is improvement of his opacification specially inthe left lower lobe. I discussed all of this with him. We specifically discussed the findings of the chest x-ray. I believe he is recovering well from surgery and based on the chest x-ray I cannot explains his shortness of breath. He has COPD and he was placed in a new inhaler. He will follow with you this week. He also recently finished his course of antibiotics. He will communicate with the Infectious Diseases Team to know what the next plans for treatment are. We will continue to see him on a p.r.n. basis. He agrees to the plan and all of his questions were answered to his satisfaction. If you have any furtherquestions or concerns, please do not hesitate to contact our office. Otherwise, thank you for allowing me to participate in the care of your patient. Thank you very much. Yours sincerely, Benny Lujan MD Corporate Planner completed by using M*Modal Fluency Direct speaking software, therefore, transcriptionvariances may occur. ING FLOOR WORKER documented in this encounter Plan of Treatment Not on file documented as of this encounter Results * X-ray chest 2 views (07/13/2021 10:05 AM PACKING FLOOR WORKER) Anatomical Region Laterality Modality Body, Chest N/A Computed Radiogr aphy 07/13/2021 2:11 PM PACKING FLOOR WORKER Narrative 07/13/2021 2:14 PM PACKING FLOOR WORKER EXAM DESCRIPTION: ?? XR CHEST PA LATERAL [...] PM T: ??07/13/2021 2:14 PM Report ID: [id number] Reading Location: ??[id number] Procedure Note Lester Heredia MD - 07/13/2021 [...] Lester Flores M.D. RL: BACILIO Report ID: [id number] Reading Location: [place] [address] Benny López MD IMG XR PROCEDURES Final Result documented in this encounter Visit Diagnoses Diagnosis Empyema lung (CMS/HCC) (HCC)- Primary Empyema without mention of fistula Empyema lung (CMS/HCC) (HCC) Empyema without mention of fistula documented in this encounter Care Teams Lithographers Printer Relationship Specialty Start Date End Date Ross Espinosa MD [address] [place] [address] PCP - General 06/11/21 03/02/22 documented as of this encounter
--- OUTSIDE RECORDS SUMMARY | 2024-09-12 15:44 | XMS_ITS | Encounter Summary ---
Author Organization [facility] Address [address] [place] [address] Phone Care Team Providers Care Bulbs Farmworker Name Role Phone Ross Espinosa MD Primary Care Provider [phone] Reason for Visit * Auth/Cert Specialty Diagnoses / Procedures Referred By Jovany carver Referred To Contact Referral ID Status Reason Start Date Expiration Date Visits Re quested Visits Authorized [id number] 1 1 Encounter Details Date Type Department Care Team (Late st Contact Info) Description 07/03/2021 8:00 AM [facility] Home Care Visit [facility] [address] [address] [address] [place] [address] Akila Greco LPN SN HOME VISIT Social History Tobacco Use Types Packs/Day Years Used Date Smoking Tobacco: Former Cigarettes Q uit: 08/22/2009 Smokeless Tobacco: Never Sex and Gender Information Value Date Recorded Sex Assigned at Not on file Legal Sex Male 1:43 PM CDT Gender Identity Male 08/12/2022 2:14 PM B[facility]ER [facility]INT Sexual Orientation Not on file documented as of this encounter Last Filed Vital Signs Vital Sign Reading Time Taken Comments Blood Pressure 110/66 07/03/2021 9:24 AM [facility]ER [facility]INT Pulse 100 07/03/2021 9:24 AM [facility]AKER [facility]INT Temperature 36.7 ??C (98.1 ??F) 07/03/2021 9:24 AM CS T Respiratory Rate 20 07/03/2021 9:24 AM BAKER [facility]INT Oxygen Saturation 96% 07/03/2021 9:24 AM [facility]AK[facility]INT Inhaled Oxygen Concentration - - Weight - - Height - - Body Mass Index - - documented in this encounter Plan of Treatment Not on file documented as of this encounter Visit Diagnoses Not on filedocumented in this encounter Home Health Visit - Care Plan Visit Details Visit Type -SN Home Visit Discipline -Long Term Problems Problem Description Start Date Status Goals Interve ntions Homebound Status Disciplines: Long Term, Physical Therapy, Occupational Therapy, Home Health Aide, Medical Social Work Patient's homebound status 06/25/2021 Active 1 goal linked to scheduled/docume nted intervention 1 goal intervention scheduled/documen darrion in this visit Medications Disciplines: Long Term, Physical Therapy, Occupational Therapy Management of home medications 06/25/2021 Active 1 goal linked to scheduled/docume nted intervention 1 goal intervention scheduled/documen darrion in this visit Oxygen Disciplines: Long Term, Physical Therapy, Occupational Therapy, Home Health Aide Oxygen instruction and safety 06/25/2021 Active 1 goal linked to scheduled/docume nted intervention 1 goal intervention scheduled/documen darrion in this visit Monitor patient's vital signs every home health visit Disciplines: Long Term, Physical Therapy, Occupational Therapy, Home Health Aide Monitor patient's vital signs every home health visit. 06/25/2021 Active 1 goal linked to scheduled/docume nted intervention 1 goal intervention scheduled/documen darrion in this visit Standardized Guidelines Disciplines: Long Term, Physical Therapy, Occupational Therapy, Home Health Aide, Medical Social Work Standardized Guidelines 06/25/2021 Active 1 goal linked to scheduled/docume nted intervention 1 goal intervention scheduled/documen darrion in this visit Safety concerns Disciplines: Long Term, Physical Therapy, Occupational Therapy, Home Health Aide, Medical Social Work Alteration in safety 06/25/2021 Active 1 goal linked to scheduled/docume nted intervention 1 goal intervention scheduled/documen darrion in this visit [place] Precautions Disciplines: Long Term, Physical Therapy, Occupational Therapy, Home Health Aide, Medical Social Work [place] Precautions 06/25/2021 Active 1 goal linked to scheduled/docume nted intervention 1 goal intervention scheduled/documen darrion in this visit Knowledge Deficit - Wound Care Disciplines: Long Term, Physical Therapy, Occupational Therapy, Home Health Aide Deficiency of cognitive information related to wound care 06/25/2021 Active 1 goal linked to scheduled/docume nted intervention 2 goal interventions scheduled/documen darrion in this visit Wound Care Disciplines: Long Term, Physical Therapy, Occupational Therapy, Home Health Aide Wound care needed 06/25/2021 Active 1 goal linked to scheduled/docume [...] end of the episode of care Medications No Demonstrate safe oxygen usage Description: Patient/caregiver to verbalize and demonstrate safe oxygen usage by end of episode of care Oxygen No Measure vital signs during every home health visit during episode of care Description: Home material mixer to measure vital signs during every home health visit during episode of care. Monitor patient's vital signs every home health visit No Understanding of when to notify MD in absence of home care staff Description: Understanding of when to notify MD in absence of home care staff Standardized Guidelines No Demonstrate use of safety precautions Description: Demonstrate use of safety precautions Safety concerns No Demonstrate knowledge of universal precautions Description: Demonstrate knowledge of universal precautions [place] Precautions No Knowledgeable on Woundcare Description: Patient/caregiver will be knowledgeable on woundcare procedure, wound healing and when to seek medical attention by 06.26.2021. Knowledge Deficit - Wound Care No Progression towards healing Description: Wound show progression towards healing by 07.08.2021. Wound Care No Interventions Intervention Associated Problem/Goal [...] Problem:Medications Goal:Understand and follow medication therapy Completed sn instructed patient on oxycodone 5 mg q4 horus prn for pain store at room temprature nka side effects headache nka dizziness drowsiness constipation if symptoms persist or worsen notify doctor patient verbalized understanding Instruct on oxygen sign for home Description: Instruct and provide patient with oxygen safety sign for home. Document refusal to use sign. Sign location front door Problem:Oxygen Goal:Demonstrate safe oxygen usage Completed patient appears to be compliant with oxygen sign noted at front entrance Monitor Vital Signs Description: Monitor blood pressure, pulse, oxygen saturation, respirations Problem:Monitor patient's vital signs every home health visit Goal:Measure vital signs during every home health visit during episode of care Completed WNL Home Care Staff Absence Description: In absence of Home Care staff the patient/caregiver should call home care 24 hour non emergency # for questions or concerns that is on the front of homecare folder and to call 911 for emergencies. Problem:Standardized Guidelines Goal:Understanding of when to notify MD in absence of home care staff Completed patient family available to provide care in absence of home care staff Instruct Fall Prevention Description: Instruct patient/caregiver in methods to prevent falls Problem:Safety concerns Goal:Demonstrate use of safety precautions Completed sn instructed patient on fall prevention to insure pathway free of debris insure wc/walker in locked position when standing up/down if any feelings of dizziness upon standing sit back down till it passess patient verbalized understanding Aspects of Care Description: Instruct patient/caregiver on universal precautions and home infection control measures Problem:[place] Precautions Goal:Demonstrate knowledge of universal precautions Completed sn instructed/demonstrate d for patient proper placement of catheter tubing and stat lock patient verbalized understanding Wound care Description: Wash left back surgical site with soap and water daily and pat dry. Leave open to air. May cover with dry dressing and secure with tape daily, if has drainage and as needed if becomes soiled or dislodged. Wound care by Sn/pt/caregiver. Problem:Knowledge Deficit - Wound Care Goal:Knowledgeable on Woundcare Completed sn assessed wound open to air scabbed over with sutures intact no s/s of infection patient tolerated well Instruct patient on maintaining adequate nutrition and hydration Description: Instruct patient on maintaining adequate nutrition for wound healing. Instruct pt/cg on eating/offering a balanced diet. Instruct on adequate protein sources per Wound Education Booklet. Consult RD for chronic malnutrition, stage 3 or 4 pressure ulcer. Problem:Knowledge Deficit - Wound Care Goal:Knowledgeable on Woundcare Completed sn instructed patient on heart healty diet with increase proteint fresh fruits/vegatables and on hydration 6.5-8 cups daily to promote wound healing patient verbalizes understanding Skilled assessment wound Description: Full wound assessment including measurement weekly. Wound assessment each visit Problem:Wound Care Goal:Progression towards healing Completed sn assessed wound open to air scabbed over with sutures intact no s/s of infection patient tolerated well documented in this encounter Home Health Visit - Actions and Narratives Actions see intervention note documented in this encounter Care Teams Bulbs Farmworker Relationship Specialty Start Date End Date Ross Espinosa MD [address] [place] [address] PCP - General 06/11/21 03/02/22 documented as of this encounter
--- OUTSIDE RECORDS SUMMARY | 2024-09-12 15:44 | XMS_ITS | Encounter Summary ---
Author Organization [facility] Home [facility] es Address [address] [place] [address] Phone Care Team Providers Care Mutual Fund Analyst Name Role Phone Ross Espinosa MD Primary Care Provider [phone] Reason for Visit * Auth/Cert Specialty Diagnoses / Procedures Referred By Jovany t Referred To Contact Referral ID Status Reason Start Date Expiration Date Visits Re quested Visits Authorized [id number] 1 1 Encounter Details Date Type Department Care Team (Late st Contact Info) Description 07/01/2021 12:30 PM CAPITAL CAMPAIGN [employer]DRA[employer] Home Care Visit [facility] Home Health [address] [address] [address] [place] [address] Duglas Gonzales LCSW TRUCKING CONTRACTOR INITIAL EVAL Social History Tobacco Use Types Packs/Day Years Used Date Smoking Tobacco: Former Cigarettes Q uit: 08/22/2009 Smokeless Tobacco: Never Sex and Gender Information Value Date Recorded Sex Assigned at Not on file Legal Sex Male 1:43 PM CDT Gender Identity Male 08/12/2022 2:14 PM [employer] Sexual Orientation Not on file documented as of this encounter Miscellaneous Notes * Case Communication - Duglas Vargas MSW - 07/01/2021 5:05 PM CSTMSW PSYCHOSOCIAL TRUCKING CONTRACTOR did home visit with pt and family on: 07/01/21 PRIORITIES/GOALS: finalize divorce, move into place near sisters STRESSORS: the divorce, need to get stronger, ambulate in dependently CAREGIVER/SUPPORT: Has been in [place] since October, filed for divorce in [place]. Sister sometimes assists with getting out of bed, assists with IV, prep some meals PAIN: rates pain 10/29 surgical site/catheter PATIENT REQUEST: HCPOA MSWINTERVENTIONS: TRUCKING CONTRACTOR made referral to [facility] TRUCKING CONTRACTOR provided HCPOA document TRUCKING CONTRACTOR provided ERB resource TRUCKING CONTRACTOR phoned [employer] to request an application be sent to pt TAL CAMPAIGN [employer]DRAISER documented in this encounter Plan of Treatment Not on file documented as of this encounter Visit Diagnoses Not on filedocumented in this encounter Home Health Visit - Care Plan Visit Details Visit Type -TRUCKING CONTRACTOR Initial Eval uation Discipline -Medical Social Work Problems Problem Description Start Date Status Goals Interve ntions TRUCKING CONTRACTOR Resource Needs Disciplines: Social Work Deficit related to resources. 07/01/2021 Active 1 goal linked to scheduled/documen darrion intervention 1 goal intervention scheduled/document ed in this visit TRUCKING CONTRACTOR Emotional Support Needs Disciplines: Social Work Deficit related to emotional support. 07/01/2021 Active 1 goal linked to scheduled/documen darrion intervention 1 goal intervention scheduled/document ed in this visit Goals Goal Associated Problem Outcome Goal Met? Visit Notes Understanding of available resources Description: Patient/family/caregiv er will voice understanding of available resources by .ceramic designer TRUCKING CONTRACTOR Resource Needs Progressing No Patient and family will verbalize understanding of all resources discussed. Increase emotional support Description: Patient/family is able to explore reactions to and verbalize acceptance of impact of illness by TRUCKING CONTRACTOR discharge TRUCKING CONTRACTOR Emotional Support Needs Progressing No TRUCKING CONTRACTOR provided emotional support and encouragement to patient through conversation, active listening and supportive presence Interventions Intervention Associated Problem/Goal Status Variance Visit Notes Provide assistance with identifying appropriate community resources Description: Provide assistance with identifying appropriate community resources Problem:TRUCKING CONTRACTOR Resource Needs Goal:Understanding of available resources TRUCKING CONTRACTOR PSYCHOSOCIAL TRUCKING CONTRACTOR did home visit with pt and family on: 07/01/21 PRIORITIES/GOALS: finalize divorce, move into place near sisters STRESSORS: the divorce, need to get stronger, ambulate in dependently ASSETS: supportive family, financial stability ORIENTATION: A&OX: 4 MOOD/AFFECT/COPING SKILLS: denies mood issues CAREGIVER/SUPPORT: [place] in [place], filed for divorce in [place]. Sister sometimes assists with getting out of bed, assists with IV, prep some meals PHYSICAL STATUS (ADLs/IADLs, sleep/nutrition): using 2WW, difficulty with stairs. Using O2 PRN RELATIONSHIPS/BACKGROUN D: lives with sister, other sister lives around the corner. Pt getting . 3 grown dtrs, 2 in [place] and 1 in [place]. X2, together 40-years INCOME/ASSETS: getting social security, paying alimony, pension and 401K. SUBSTANCE USE: Patient denies ETOH, tobacco and illicit drug use. Quit smoking tobacco cigarettes August 2011 PAIN: rates pain 10/29 surgical site/catheter SAFETY CONCERNS (HX/CURRENTSI/SIB): no grab bars in shower RESOURCES AVAILABLE (ERB, HCPOA, caregiver, transportation): None PATIENT REQUEST: HCPOA TRUCKING CONTRACTOR INTERVENTIONS: TRUCKING CONTRACTOR made referral to [facility] Counseling program provided by [facility] TRUCKING CONTRACTOR provided HCPOA document TRUCKING CONTRACTOR provided ERB resource TRUCKING CONTRACTOR phoned [employer] to request an application be sent to pt TRUCKING CONTRACTOR provided emotional support and encouragement to patient and family through conversation, active listening, and supportive presence. Patient and family verbalized understanding of all resources discussed. Patient and family had no other needs or concerns. TRUCKING CONTRACTOR encouraged patient and family to contact Home Care Service's with any questions or concerns. Patient and family verbalized understanding. TRUCKING CONTRACTOR will coordinate care with Home Care Team. Provide Emotional Support Description: Provide emotional support Problem:TRUCKING CONTRACTOR Emotional Support Needs Goal:Increase emotional support TRUCKING CONTRACTOR provided emotional support and encouragement to patient through conversation, active listening and supportive presence documented in this encounter Home Health Visit - Actions and Narratives Actions TRUCKING CONTRACTOR PSYCHOSOCIAL TRUCKING CONTRACTOR did home visit with pt and family on: 07/01/21 PRIORITIES/GOALS: finalize divorce, move into place near sisters STRESSORS: the divorce, need to get stronger, ambulate in dependently ASSETS: supportive family, financial stability ORIENTATION: A&OX: 4 MOOD/AFFECT/COPING SKILLS: denies mood issues CAREGIVER/SUPPORT: [place], filed for [place] in [place]. Sister sometimes assists with getting out of bed, assists with IV, prep some meals PHYSICAL STATUS (ADLs/IADLs, sleep/nutrition): using 2WW, difficulty with stairs. Using O2 PRN RELATIONSHIPS/BACKGROUND: lives with sister, other sister lives around the corner. Pt getting . 3 grown dtrs, 2 in [place] and 1 in [place]. X2, together 40- years. 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 SUBSTANCE USE: Patient denies ETOH, tobacco and illicit drug use. Quit smoking tobacco cigarettes August 2011 PAIN: rates pain 10/29 surgical site/catheter SAFETY CONCERNS (HX/CURRENTSI/SIB): no grab bars in shower RESOURCES AVAILABLE (ERB, HCPOA, caregiver, transportation): None PATIENT REQUEST: HCPOA TRUCKING CONTRACTOR INTERVENTIONS: TRUCKING CONTRACTOR made referral to [facility] Senior Counseling program provided by [facility] TRUCKING CONTRACTOR provided HCPOA document TRUCKING CONTRACTOR provided ERB resource TRUCKING CONTRACTOR phoned [employer] to request an application be sent to pt TRUCKING CONTRACTOR provided emotional support and encouragement to patient and family through conversation, active listening, and supportive presence. Patient and family verbalized understanding of all resources discussed. Patient and family had no other needs or concerns. TRUCKING CONTRACTOR encouraged patient and family to contact Home Care Service's with any questions or concerns. Patient and family verbalized understanding. TRUCKING CONTRACTOR will coordinate care with Home Care Team. Narratives TRUCKING CONTRACTOR will coordinate care wit Home Care Team. documented in this encounter Care Teams Mutual Fund Analyst Relationship Specialty Start Date End Date Ross Espinosa MD [address] [place] [address] PCP - General 06/11/21 03/02/22 documented as of this encounter
--- OUTSIDE RECORDS SUMMARY | 2024-09-12 15:44 | XMS_ITS | Encounter Summary ---
Author Organization [facility] Home Care Servic es Address [address] [place] [address] Phone Care Team Providers Care Impregnator And Drier Name Role Phone Ross Espinosa MD Primary Care Provider [phone] Reason for Visit * Auth/Cert Specialty Diagnoses / Procedures Referred By Jovany t Referred To Contact Referral ID Status Reason Start Date Expiration Date Visits Re quested Visits Authorized [id number] 1 1 Encounter Details Date Type Department Care Team (Late st Contact Info) Description 07/10/2021 12:00 PM METAL FURNACE OPERATOR Home Care Visit [facility] [address] [address] [address] [place] [address] Alycia Xavier RN SN HOME VISIT Social History Tobacco Use Types Packs/Day Years Used Date Smoking Tobacco: Former Cigarettes Q uit: 08/22/2009 Smokeless Tobacco: Never Sex and Gender Information Value Date Recorded Sex Assigned at Not on file Legal Sex Male 1:43 PM CDT Gender Identity Male 08/12/2022 2:14 PM METAL FURNACE OPERATOR Sexual Orientation Not on file documented as of this encounter Last Filed Vital Signs Vital Sign Reading Time Taken Comments Blood Pressure 166/88 07/10/2021 12:01 PM METAL FURNACE OPERATOR Pulse 84 07/10/2021 12:01 PM METAL FURNACE OPERATOR Temperature 36.6 ??C (97.9 ??F) 07/10/2021 12:[address] Respiratory Rate 22 07/10/2021 12:01 PM METAL FURNACE OPERATOR Oxygen Saturation 94% 07/10/2021 12:01 PM METAL FURNACE OPERATOR Inhaled Oxygen Concentration - - Weight - - Height - - Body Mass Index - - documented in this encounter Plan of Treatment Not on file documented as of this encounter Visit Diagnoses Not on filedocumented in this encounter Home Health Visit - Care Plan Visit Details Visit Type -SN Home Visit Discipline -Fci Problems Problem Description Start Date Status Goals Interventions Homebound Status Disciplines: Fci, Physical Therapy, Occupational Therapy, Home Health Aide, Medical Social Work Patient's homebound status 06/25/2021 Active 1 goal linked to scheduled/docume nted intervention 1 goal intervention scheduled/documen darrion in this visit Medications Disciplines: Fci, Physical Therapy, Occupational Therapy Management of home medications 06/25/2021 Active 1 goal linked to scheduled/docume nted intervention Oxygen Disciplines: Fci, Physical Therapy, Occupational Therapy, Home [...] goal interventions scheduled/documen darrion in this visit Standardized Guidelines Disciplines: Fci, Physical Therapy, Occupational Therapy, Home Health Aide, Medical Social Work Standardized Guidelines 06/25/2021 Active 1 goal linked to scheduled/docume nted intervention 1 goal intervention scheduled/documen darrion in this visit Aide Supervisory Visit Disciplines: Fci, Physical Therapy, Occupational Therapy Supervision of HH Aide 06/25/2021 Active 1 goal linked to scheduled/docume nted intervention 1 goal intervention scheduled/documen darrion in this visit Safety concerns Disciplines: Fci, Physical Therapy, Occupational Therapy, Home Health Aide, Medical Social Work Alteration in safety 06/25/2021 Active 1 goal linked to scheduled/docume nted intervention 1 goal intervention scheduled/documen darrion in this visit [place] Precautions Disciplines: Fci, Physical Therapy, Occupational Therapy, Home Health Aide, Medical Social Work [place] Precautions 06/25/2021 Active 1 goal linked to scheduled/docume nted intervention Pain Disciplines: Fci, Physical Therapy, Occupational Therapy, Home Health Aide, Medical Social Work Alteration in comfort 06/25/2021 Active 1 goal linked to scheduled/docume nted intervention Safety concerns Disciplines: Fci Safety needs related to infusion administration 06/25/2021 Active 1 goal linked to scheduled/docume nted intervention Learning/Teachin g Needs - IV Therapy Disciplines: Fci Teaching and learning needs for performing home IV therapy 06/25/2021 Active 1 goal linked to scheduled/docume nted intervention 1 problem intervention scheduled/documen darrion in this visit Knowledge Deficit - Wound Care Disciplines: Fci, Physical Therapy, Occupational Therapy, Home Health Aide Deficiency of cognitive information related to wound care 06/25/2021 Active 1 goal linked to scheduled/docume nted intervention 2 goal interventions scheduled/documen darrion in this visit Wound Care Disciplines: Fci, Physical Therapy, Occupational [...] visit during episode of care Description: Home millstone cleaner to measure vital signs during every home health visit during episode of care. Monitor patient's vital signs every home health visit Progressing No Understanding of when to notify MD in absence of home care staff Description: Understanding of when to notify MD in absence of home care staff Standardized Guidelines No Complete aide supervisory visit Description: Complete aide supervisory visit. Aide Supervisory Visit Progressing No Demonstrate use of safety precautions Description: Demonstrate use of safety precautions Safety concerns No Demonstrate knowledge of universal precautions Description: Demonstrate knowledge of universal precautions [place] Precautions Progressing No Report that pain has [...] treatment episode. Learning/Teaching Needs - IV Therapy Adequate for Discharge No Knowledgeable on Woundcare Description: Patient/caregiver will be knowledgeable on woundcare procedure, wound healing and when to seek medical attention by 06.26.2021. Knowledge Deficit - Wound Care Progressing No Progression towards healing Description: Wound show progression towards healing by 07.08.2021. Wound Care Progressing No Interventions Intervention Associated Problem/Goal Status [...] home and needs frequent rest breaks. Instruct on prescribed oxygen settings Description: Instruct patient/caregiver on prescribed oxygen settings. (O2 LPM: 3liter VIA: n/c FREQ: continuous Problem:Oxygen Goal:Demonstrate safe oxygen usage Completed patient instructed on importance of wearing o2 to maintain oxygen levels. Monitor Vital Signs Description: Monitor blood pressure, pulse, oxygen saturation, respirations Problem:Monitor patient's vital signs every home health visit Goal:Measure vital signs during every home health visit during episode of care Completed Supervising Discipline notification of abnormal vital signs Description: Use standardized clinical guidelines of abnormal vitals signs to report to supervising discipline. (SBP 90-160, DBP 40-90, O2Sat 88-100%, temporal temp less than 101.5) Problem:Monitor patient's vital signs every home health visit Goal:Measure vital signs during every home health visit during episode of care Completed Called Dr Irvin office regarding elevated blood pressure and increased edema. Physician notification Description: Use standardized clinical guidelines for notifying physician of abnormal vital signs or clinical findings Problem:Standardized Guidelines Goal:Understanding of when to notify MD in absence of home care staff Completed Notified PCP of edema and blood pressure issues. Patient has an appt next tuesday with the PCP Aide Supervisory Visit Description: Aide Supervision at least every 14 days Problem:Aide Supervisory Visit Goal:Complete aide supervisory visit Aide sup visit completed Assess safety Description: Assess patient safety Problem:Safety concerns Goal:Demonstrate use of safety precautions Completed IV Access Care/Maintenance Description: Skilled Nurse to [...] Problem:Learning/Teach ing Needs - IV Therapy Completed Site assessed- edges of tegaderm reinforced. Instruct family on wound care Description: Instruct patient/caregiver on wound care per MD orders per Wound Education Booklet, may include written directions and or photos for patient/caregiver education. Problem:Knowledge Deficit - Wound Care Goal:Knowledgeable on Woundcare Completed incisions are healed. Wound care Description: Wash left back surgical site with soap and water daily and pat dry. Leave open to air. May cover with dry dressing and secure with tape daily, if has drainage and as needed if becomes soiled or dislodged. Wound care by Sn/pt/caregiver. Problem:Knowledge Deficit - Wound Care Goal:Knowledgeable on Woundcare Scheduled documented in this encounter Care Teams Impregnator And Drier Relationship Specialty Start Date End Date Ross Espinosa MD [address] [place] [address] PCP - General 06/11/21 03/02/22 documented as of this encounter
--- OUTSIDE RECORDS SUMMARY | 2024-09-12 15:44 | XMS_ITS | Encounter Summary ---
Author Organization [facility] Home Care Servic es Address [address] [place] [address] Phone Care Team Providers Care Order Builder Name Role Phone Ross Espinosa MD Primary Care Provider [phone] Reason for Visit * Auth/Cert Specialty Diagnoses / Procedures Referred By Jovany t Referred To Contact Referral ID Status Reason Start Date Expiration Date Visits Re quested Visits Authorized [id number] 1 1 Encounter Details Date Type Department Care Team (Late st Contact Info) Description 06/30/2021 Home Care Visit [facility] Home Health [address] [place] [address] Giuliana Rivera RN TRAVEL SCREENING CASE COMMUNICATION Social History Tobacco Use Types Packs/Day Years Used Date Smoking Tobacco: Former Cigarettes Q uit: 08/22/2009 Smokeless Tobacco: Never Sex and Gender Information Value Date Recorded Sex Assigned at Not on file Legal Sex Male 1:43 PM CDT Gender Identity Male 08/12/2022 2:14 PM PRIMARY OPERATOR Sexual Orientation Not on file documented as of this encounter Plan of Treatment Not on file documented as of this encounter Visit Diagnoses Not on filedocumented in this encounter Care Teams Order Builder Relationship Specialty Start Date End Date Ross Espinosa MD [address] [place] [address] PCP - General 06/11/21 03/02/22 documented as of this encounter
--- OUTSIDE RECORDS SUMMARY | 2024-09-12 15:44 | XMS_ITS | Encounter Summary ---
Author Organization [facility] Home Care Servic es Address [address] [place] [address] Phone Care Team Providers Care Steam Cleaner Name Role Phone Ross Espinosa MD Primary Care Provider [phone] [phone] Reason for Visit * Auth/Cert Specialty Diagnoses / Procedures Referred By Jovany t Referred To Contact Referral ID Status Reason Start Date Expiration Date Visits Re quested Visits Authorized [id number] 1 1 Encounter Details Date Type Department Care Team (Late st Contact Info) Description 07/03/2021 Home Care Visit [facility] Home Health [address] [place] [address] Akila Greco LPN TRAVEL SCREENING CASE COMMUNICATION Social History Tobacco Use Types Packs/Day Years Used Date Smoking Tobacco: Former Cigarettes Q uit: 08/22/2009 Smokeless Tobacco: Never Sex and Gender Information Value Date Recorded Sex Assigned at Not on file Legal Sex Male 1:43 PM CDT Gender Identity Male 08/12/2022 2:14 PM TALENT SOURCER Sexual Orientation Not on file documented as of this encounter Plan of Treatment Not on file documented as of this encounter Visit Diagnoses Not on filedocumented in this encounter Care Teams Steam Cleaner Relationship Specialty Start Date End Date Ross Espinosa MD [address] [place] [address] PCP - General 06/11/21 03/02/22 documented as of this encounter
--- OUTSIDE RECORDS SUMMARY | 2024-09-12 15:44 | XMS_ITS | Encounter Summary ---
Author Organization [facility] Address [address] [place] [address] Phone Care Team Providers Care Kettle Coordinator Name Role Phone Ross Espinosa MD Primary Care Provider [phone] [phone] Encounter Details Date Type Department Care Team (Late st Contact Info) Description 07/10/2021 Telephone [facility] Infectious Diseases [address] [place] [address] [address] [place] [address] Mariana Mayorga Social History Tobacco Use Types Packs/Day Years Used Date Smoking Tobacco: Former Cigarettes Q uit: 08/22/2009 Smokeless Tobacco: Never Sex and Gender Information Value Date Recorded Sex Assigned at Not on file Legal Sex Male 1:43 PM CDT Gender Identity Male 08/12/2022 2:14 PM MAINTENANCE WORKER SWIMMING POOL Sexual Orientation Not on file documented as of this encounter Miscellaneous Notes * Telephone Encounter - Jacey Holloway NP - 07/10/2021 9:05 PM MAINTENANCE WORKER SWIMMING POOL Spoke with patient earlier this afternoon regarding CT chest results. IMPRESSION: 1. Interval changes of thoracotomy with small amount of extrapleural hemorrhage layering posterior to the decreasing size left empyema. 2. 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 3. Unchanged indeterminate left adrenal nodule. 4. 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 CT chest has improved. Discussed plan with patient. Plan is to stop IV Ceftriaxone and Metronidazole and switch to PO Augmentin/Doxycycline to complete 2 more weeks for a total of 6 weeks and then hemay stop. After discussion with patient he reports that when he took Augmentin about 15 years ago he had hives. Re-discussed plan with attending will Plan to continue Doxycycline 100 mg BID, Metronidazole 500 mgevery 8 hours, and switch to PO Cephalexin 500 mg every 8 hours x 2 weeks and then can stop abx andfollow with ID as needed. notified that IV abx are to stop, and will set up Geraldine removal for patient. Script for Cephalexin sent to local pharmacy. Creatinine clearance was calculated with most recent Scr of 1.73 from 07/07 using the Cockcroft -Gault equation (54 mL/min). TENANCE WORKER SWIMMING POOL * Telephone Encounter - Forrest Blackman RPh - 07/10/2021 2:29 PM MAINTENANCE WORKER SWIMMING POOL Shanice Got it. I have left a message with the RN and Mr Hill's sister asking to confirm he has a Geraldine but I suspect he does, all documentation I can find that we have and [facility] has suggests this. Forrest TENANCE WORKER SWIMMING POOL * Telephone Encounter - Shanice George - 07/10/2021 2:20 PM CST Here is the plan, please advise on line removal. Thanks Shanice Reviewed CT and discussed with attending. We can stop Freddy Hill IV abx and we are going to transition him to PO Augmentin and Doxycycline x 2 weeks and then he can stop (would be a total of 6 weeks treatment). I will reach out to patient and verify local pharmacy to send script. Can we verify with home health but I believe he has the Right Geraldine and not sure if they can pull. If not he asked that it be pulled at [facility] in [place]. No need to schedule FU. He can follow with us as needed TENANCE WORKER SWIMMING POOL * Telephone Encounter - Shanice George - 07/10/2021 2:10 PM CST Please advise Thanks Shanice TENANCE WORKER SWIMMING POOL * Telephone Encounter - Mariana Mayorga - 07/10/2021 1:12 PM CST [phone], patient is wanting his CT results. Is patient continuing on his medication? TENANCE WORKER SWIMMING POOL documented in this encounter Plan of Treatment Not on file documented as of this encounter Visit Diagnoses Not on filedocumented in this encounter Care Teams Kettle Coordinator Relationship Specialty Start Date End Date Ross Espinosa MD [address] [place] [address] PCP - General 06/11/21 03/02/22 documented as of this encounter
--- OUTSIDE RECORDS SUMMARY | 2024-09-12 15:44 | XMS_ITS | Encounter Summary ---
Author Organization [facility] Home Care Servic es Address [address] [place] [address] Phone Care Team Providers Care Construction Site Crossing Guard Name Role Phone Ross Espinosa MD Primary Care Provider [phone] [phone] Reason for Visit * Auth/Cert Specialty Diagnoses / Procedures Referred By Jovany t Referred To Contact Referral ID Status Reason Start Date Expiration Date Visits Re quested Visits Authorized [id number] 1 1 Encounter Details Date Type Department Care Team (Late st Contact Info) Description 07/09/2021 11:30 AM TAKER OFF HEMP FIBER Home Care Visit [facility] [address] [address] [address] [place] [address] Kayla Watson CNA AIDE HOME VISIT Social History Tobacco Use Types Packs/Day Years Used Date Smoking Tobacco: Former Cigarettes Q uit: 08/22/2009 Smokeless Tobacco: Never Sex and Gender Information Value Date Recorded Sex Assigned at Not on file Legal Sex Male 1:43 PM CDT Gender Identity Male 08/12/2022 2:14 PM TAKER OFF HEMP FIBER Sexual Orientation Not on file documented as of this encounter Last Filed Vital Signs Vital Sign Reading Time Taken Comments Blood Pressure 150/88 07/09/2021 11:23 AM TAKER OFF HEMP FIBER Pt stated he was upset at this time of BP taken. Pulse 84 07/09/2021 11:23 AM TAKER OFF HEMP FIBER Temperature 36.3 ??C (97.4 ??F) 07/09/2021 1 1:23 AM TAKER OFF HEMP FIBER Respiratory Rate 22 07/09/2021 11:2 3 AM TAKER OFF HEMP FIBER Oxygen Saturation 94% 07/09/2021 11: 23 AM TAKER OFF HEMP FIBER Inhaled Oxygen Concentration - - Weight - [...] Completed Aide clean/tidy Description: Tidy patient area, pick out hand clutter and store in collaboration with patient. [...] Completed documented in this encounter Care Teams Construction Site Crossing Guard Relationship Specialty Start Date End Date Ross Espinosa MD [address] [place] [address] PCP - General 06/11/21 03/02/22 documented as of this encounter
--- OUTSIDE RECORDS SUMMARY | 2024-09-12 15:44 | XMS_ITS | Encounter Summary ---
Author Organization [facility] Healthcare Address [address] [place] [address] Care Team Providers Care Level Vial Inspector And Tester Name Role Phone Ross Espinosa MD Primary Care Provider [phone] Encounter Details Date Type Department Care Team (Late st Contact Info) Description 07/07/2021 6:00 PM ANTHROPOLOGY DEPARTMENT CHAIR Lab [address] [address] Social History Tobacco Use Types Packs/Day Years Used Date Smoking Tobacco: Former Cigarettes Q uit: 08/22/2009 Smokeless Tobacco: Never Sex and Gender Information Value Date Recorded Sex Assigned at Not on file Legal Sex Male 1:43 PM CDT Gender Identity Male 08/12/2022 2:14 PM ANTHROPOLOGY DEPARTMENT CHAIR Sexual Orientation Not on file documented as of this encounter Plan of Treatment Not on file documented as of this encounter Procedures Procedure Name Priority Date/Time Associated Diagnosis Comments GLUCOSE, RANDOM (OUTREACH) Routine 07/07/2021 1:50 PM ANTHROPOLOGY DEPARTMENT CHAIR EGFR Routine 07/07/2021 1:50 PM ANTHROPOLOGY DEPARTMENT CHAIR DIFFERENTIAL AUTO Routine 07/07/2021 1:5 0 PM ANTHROPOLOGY DEPARTMENT CHAIR COMPREHENSIVE METABOLIC PANEL WITHOUT GLUCOSE (OUTREACH) Routine 07/07/2021 1:50 PM ANTHROPOLOGY DEPARTMENT CHAIR CBC WITH AUTO DIFFERENTIAL Routine 07/07/2021 1:50 PM ANTHROPOLOGY DEPARTMENT CHAIR documented in this encounter Results * (ABNORMAL) eGFR (07/07/2021 1:50 PM ANTHROPOLOGY DEPARTMENT CHAIR) eGFR 39(L) 90 - 130 mL/min/1.7 3 m2 [facility] Comment: Interpretive Data Reference Interval Normal ?>/= [...] interpretive data was last reviewed 2020 Blood 07/07/2021 1:50 PM ANTHROPOLOGY DEPARTMENT CHAIR 07/07/2021 6:04 PM ANTHROPOLOGY DEPARTMENT CHAIR us Notinfile Unknown LAB BLOOD ORDERABLES Final Res ult [facility] Department [place] [address] * (ABNORMAL) Differential, auto (07/07/2021 1:50 PM ANTHROPOLOGY DEPARTMENT CHAIR) Pathologist [facility] Neutrophil abs 9.0(H) 1.7 - 6.5 K/cumm [facility] Imm gran abs 0.1 0.0 - 0.1 K/cumm [facility] Lymphocyte abs 0.9 0.8 - 3.3 K/cumm [facility] Monocyte abs 1.0(H) 0.2 - 0.8 K/cumm [facility] Eosinophil abs 0.2 0.0 - 0.5 K/cumm [facility] Basophil abs 0.1 0.0 - 0.1 K/cumm [facility] Neutrophil pct 80.6 % [facility] Comment: Interpretive Data Percent cell count reference ranges are not reported, since discordance with absolute values may lead to misinterpretation of CBC data. Current Interpretive Data was last revised on 2017. Imm gran pct 0.9 % [facility] Comment: Interpretive Data Percent cell count reference ranges are not reported, since discordance with absolute values may lead to misinterpretation of CBC data. Current Interpretive Data was last revised on 2017. Lymphocyte pct 8.3 % [facility] Comment: Interpretive Data Percent cell count reference ranges are not reported, since discordance with absolute values may lead to misinterpretation of CBC data. Current Interpretive Data was last revised on 2017. Monocyte pct 8.5 % [facility] Comment: Interpretive Data Percent cell count reference ranges are not reported, since discordance with absolute values may lead to misinterpretation of CBC data. Current Interpretive Data was last revised on 2017. Eosinophil pct 1.3 % [facility] Comment: Interpretive Data Percent cell count reference ranges are not reported, since discordance with absolute values may lead to misinterpretation of CBC data. Current Interpretive Data was last revised on 2017. Basophil pct 0.4 % [facility] Comment: Interpretive Data Percent cell count reference ranges are not reported, since discordance with absolute values may lead to misinterpretation of CBC data. Current Interpretive Data was last revised on 2017. Blood 07/07/2021 1:50 PM ANTHROPOLOGY DEPARTMENT CHAIR 07/07/2021 6:00 PM ANTHROPOLOGY DEPARTMENT CHAIR us Notinfile Unknown LAB BLOOD ORDERABLES Final Res ult [facility] Department [place] [address] * (ABNORMAL) CBC with auto differential (07/07/2021 1:50 PM ANTHROPOLOGY DEPARTMENT CHAIR) Pathologist [facility] WBC 11.2(H) 3.8 - 9.9 K/cumm [facility] Hgb 8.6(L) 13.0 - 17.5 g/dL [facility] Hct 28.7(L) 38.9 - 50.3 % [facility] Plt 351 150 - 400 K/cumm [facility] MPV 9.5 9.1 - 12.3 fL [facility] RBC 3.00(L) 4.30 - 5.80 M/cumm [facility] MCV 95.7 81.3 - 96.4 fL [facility] MCH 28.7 27.1 - 33.3 pg [facility] MCHC 30.0(L) 32.3 - 35.7 g/dL [facility] RDW CV 15.9(H) 11.1 - 14.9 % [facility] RDW SD 54.1(H) 35.7 - 48.1 fL [facility] NRBC abs 0.00 0.00 - 0.01 K/cumm [facility] Blood 07/07/2021 1:50 PM ANTHROPOLOGY DEPARTMENT CHAIR 07/07/2021 6:00 PM ANTHROPOLOGY DEPARTMENT CHAIR us Notinfile Unknown LAB BLOOD ORDERABLES Final Res ult [facility] Department [place] [address] * Glucose, random (Outreach) (07/07/2021 1:50 PM ANTHROPOLOGY DEPARTMENT CHAIR) Pathologist [facility] Glucose 119 70 - 199 mg/dL [facility] Comment: Interpretive Data Fasting glucose >/= 126 [...] interpretive data was last revised 2017. Blood 07/07/2021 1:50 PM ANTHROPOLOGY DEPARTMENT CHAIR 07/07/2021 6:00 PM ANTHROPOLOGY DEPARTMENT CHAIR us Notinfile Unknown LAB BLOOD ORDERABLES Final Res ult Performing Organization Address City/[facility]/ZIP Co de Phone Number [facility] [place] [address] * (ABNORMAL) Comprehensive metabolic panel, without glucose (Outreach) (07/07/2021 1:50 PM ANTHROPOLOGY DEPARTMENT CHAIR) Sodium 140 135 - 145 mmol/L [facility] Potassium, pl 3.6 3.3 - 4.9 mmol/L [facility] Chloride 104 97 - 110 mmol/L [facility] CO2 27 22 - 32 mmol/L [facility] Anion gap 9 2 - 15 mmol/L [facility] BUN 15 8 - 25 mg/dL [facility] Creatinine 1.73(H) 0.80 - 1.30 mg/dL [facility] Calcium 8.6 8.5 - 10.3 mg/dL [facility] Protein, pl 7.7 6.5 - 8.5 g/dL [facility] Albumin 2.6(L) 3.5 - 5.0 g/dL [facility] Bilirubin, total 0.2 0.1 - 1.2 mg/dL [facility] Alk phos 92 40 - 130 Units/L [facility] AST 26 10 - 50 Units/L [facility] ALT 11 7 - 55 Units/L [facility] Blood 07/07/2021 1:50 PM ANTHROPOLOGY DEPARTMENT CHAIR 07/07/2021 6:00 PM ANTHROPOLOGY DEPARTMENT CHAIR us Notinfile Unknown LAB BLOOD ORDERABLES Final Res ult Performing Organization Address City/[facility]/ZIP Co de Phone Number [facility] Department [place] [address] documented in this encounter Visit Diagnoses Not on filedocumented in this encounter Care Teams Level Vial Inspector And Tester Relationship Specialty Start Date End Date Ross Espinosa MD [address] [place] [address] PCP - General 06/11/21 03/02/22 documented as of this encounter
--- OUTSIDE RECORDS SUMMARY | 2024-09-12 15:44 | XMS_ITS | Encounter Summary ---
Author Organization [facility] Address [address] [facility] [address] [place] [address] Phone Care Team Providers Care Wage And Salary Administrator Name Role Phone Ross Espinosa MD Primary Care Provider [phone] Reason for Visit * Reason Comments Follow-up Encounter Details Date Type Department Care Team (Late st Contact Info) Description 07/09/2021 2:20 PM WAREHOUSER Office Visit [facility] Infectious Diseases [address] [place] [address] [address] [place] [id number] Jacey Holloway NP [address] [place] [address] Empyema (CMS/HCC) (HCC) (Primary Dx) Social History Tobacco Use Types Packs/Day Years Used Date Smoking Tobacco: Former Cigarettes Q uit: 08/22/2009 Smokeless Tobacco: Never Sex and Gender Information Value Date Recorded Sex Assigned at Not on file Legal Sex Male 1:43 PM CDT Gender Identity Male 08/12/2022 2:14 PM WAREHOUSER Sexual Orientation Not on file documented as of this encounter Last Filed Vital Signs Vital Sign Reading Time Taken Comments Blood Pressure 162/89 07/09/2021 2:35 PM WAREHOUSER Pulse 109 07/09/2021 2:35 PM WAREHOUSER Temperature 36.1 ??C (97 ??F) 07/09/2021 2:35 PM WAREHOUSER Respiratory Rate - - Oxygen Saturation - - Inhaled Oxygen Concentration - - Weight - - Height 172.7 cm (5' 8) 07/09/2021 2:35 PM WAREHOUSER Body Mass Index - - documented in this encounter Ordered Prescriptions Prescription Sig Dispense Quantity Refills Last Filled Start Date End Date cephalexin (KEFLEX) 500 mg capsuleIndications :Empyema (CMS/HCC) (HCC) [The details of the medication are not available because there are pending changes by a home health clinician.] 42 capsule 07/10/2021 1 documented in this encounter Progress Notes * Jacey Holloway, SHASHANK - 07/09/2021 2:20 PM CST Infectious Disease Return Visit Patient Name: Freddy Hill [facility] INFECTIOUS DISEASES [address] [place] [id number] Subjective Chief complaint of Left empyema HPI: Freddy Hill is a 70 y.o. male with a PMH including: COPD, ANDRZEJ, asthma, CKD, HTN, AICD, carotid stenosis s/p R CEA, PAD s/p angioplasty with stent placement LLE. Who was transferred from OSH for left empyema.??He was diagnosed with pneumonia about 1 month ago that was treated unsuccessfully with azithro and prednisone taper. Admitted to OSH with luekocytosis of [address] chest??06/04 showed small to moderate multiloculated left pleural effusion consistent with empyema which was managed medically with antibiotics as patient declined drainage. Due to lack of improvement he later underwent thoracentesis on 06/08 with removal of thick purulent fluid and wastransferred on 06/10 for surgical evaluation. Cultures from pleural fluid grew Strep intermedius. He was transferred here for surgical evaluationon 06/10.??He was continued on vancomycin and cefepime. He underwent left thoracotomy with decortication on 06/12. Intraop findings included several fluid collections interiorly and posteriorly with several abscesses in lower lobe, able to decorticate to reinflate the lower lobe although consolidated in some area, also created a pleural tent. ??Cultures from OR growing Strep intermedius and Staphhominis. Vancomycin was switched to linezolid on 06/14 due to high vanc troughs and continued on cefepime. CXR on 06/[address] in placed and mildly decreased left empyema with adjacent pulmonary opacities. Leukocytosis improved, 12.1. Pt clinically improving and chest tube removed. Pt continues to experience lightheadedness with exertion (not usual for him) and requiring intermittent oxygen throughout the day at rest and with exertion (usually only with exertion baseline). Opted to continue on IV for at least another 2 weeks then likely ok to transition to augmentin/doxycyline once he's showing more improvement in symptoms. 06/12: - pleural fluid: S intermedius, S hominis - pleural tissue: NGWhjennifer was transferred from OSH for left empyema.??He was diagnosed with Interval History: Pt presents to ID clinic today for hospital discharge follow up. Overall is doing well he reports that he is just tired. Denies fever, chills, or night sweats. Reports dull left thoracic CP, but reports it is improving since surgical procedure. Baseline he is on 2L NC. With exertion he reports hehas to increase oxygen. He reports an intermittent cough with occasional noted yellow phlegm. SOB has not worsened. He reports he had some nausea and vomiting yesterday but he states this was relatedto taking his abx without food otherwise he denies nausea or vomiting. He has been tolerating both IV and oral abx without noted adverse effects. He lives at home but his sister is present to help him with his IV and medications. Labs from 07/07: WBC: 11.2, Scr: 1.73, AST/ALT: 26/11 - He is scheduled to follow with Dr. Lujan (Cardiothoracic) on 07/13. - Scheduled to follow with cardiology on 08/12 Organism: S intermedius, S hominis Retained hardware: Yes, Pacer Recent surgery: 06/12/21, L thoracotomy, empyectomy, lung decortication, and pleural tent Surgeon: Dr. Lujan Please see consult note dated: 06/15/21 Current antibiotic therapy: Ceftriaxone 2g IV q24h, Metronidazole 500mg PO q8h, and Doxycyline 100mg PO q12h. Duration likely 4 weeks, but will need repeat imaging and ID f/u prior to stopping Antibiotic start date: 06/12/21 Anticipated stop date: 07/10/21 Imaging: CT chest without contrast (crcl 22) Compliance with antibiotics: missed 0 doses. The patient has completed 4 weeks of antibiotic therapy. PICC line/central line issues: None Adverse effects from antibiotic therapy: None noted ROS: Review of Systems Constitutional: Positive for fatigue. Negative for chills and fever. Respiratory: Positive for cough and shortness of breath (Baseline is on 2L NC ). Negative for chesttightness. Cardiovascular: Negative for chest pain. Gastrointestinal: Negative for abdominal pain, diarrhea, nausea and vomiting. Genitourinary: Negative. Musculoskeletal: Negative. Skin: Positive for wound (Left old chest tube site ). Psychiatric/Behavioral: Negative. Objective Medical Conditions Diagnosis ??? Cardiac pacemaker in situ ??? Empyema (CMS/HCC) ([facility]) ??? PVD (peripheral vascular disease) (CMS/HCC) ([facility]) ??? COPD (chronic obstructive pulmonary disease) (CMS/HCC) ([facility]) ??? CKD (chronic kidney disease) stage 4, GFR 15-29 ml/min (CMS/HCC) ([facility]) ??? Hypertension ??? Anemia ??? ALFREDO (acute kidney injury) (CMS/HCC) ([facility]) Allergies: Patient has no known allergies. Current Outpatient Medications Medication ??? acetaminophen 500 mg capsule ??? albuterol 2.5 mg /3 mL (0.083 %) nebulizer solution ??? albuterol HFA (PROVENTIL HFA,VENTOLIN HFA,PROAIR HFA) 90 mcg/actuation inhaler ??? apixaban (ELIQUIS) 2.5 mg tablet ??? atorvastatin (LIPITOR) 40 mg tablet ??? carvediloL (COREG) 25 mg tablet ??? cephalexin (KEFLEX) 500 mg capsule ??? cetirizine 10 mg capsule ??? clopidogreL (PLAVIX) 75 mg tablet ??? doxepin (SINEquan) 25 mg capsule ??? doxycycline (MONODOX) 100 mg capsule ??? dupilumab (DUPIXENT) syringe ??? gabapentin (NEURONTIN) 300 mg capsule ??? heparin sod,porcine/0.9 % NaCl (HEPARIN FLUSH IV) ??? melatonin 5 mg capsule ??? metroNIDAZOLE (FLAGYL) 500 mg tablet ??? multivitamin capsule ??? omeprazole (PriLOSEC) 20 mg capsule ??? oxyCODONE (ROXICODONE) 5 mg immediate release tablet ??? oxygen ??? polyethylene glycol (MIRALAX) 17 gram packet ??? sodium chloride 0.9% (Normal Saline Flush) injection ??? Spiriva Respimat 2.5 mcg/actuation inhaler ??? tamsulosin (FLOMAX) 0.4 mg extended release capsule ??? traMADoL (ULTRAM) 50 mg tablet No current facility-administered medications for this visit. Vitals: Most Recent : Vitals BP 162/89 (BP Location: Left arm, Patient Position: Sitting) Pulse 109 Temp 36.1 ??C (97 ??F) (Temporal) Ht 172.7 cm (5' 8) BMI 31.70 kg/m?? Physical Exam Vitals reviewed. Constitutional: General: He is not in acute distress. HENT: Head: Normocephalic. Nose: Comments: Mask present Mouth/Throat: Comments: Mask present Eyes: Pupils: Pupils are equal, round, and reactive to light. Cardiovascular: Rate and Rhythm: Tachycardia present. Heart sounds: Normal heart sounds. No murmur heard. Comments: Bilateral pedal edema 1+, no pitting. Pulmonary: Effort: No accessory muscle usage or respiratory distress. Breath sounds: Examination of the left-middle field reveals decreased breath sounds. Decreased breath sounds present. No wheezing. Chest: Chest wall: No tenderness. Comments: Left subclavian pacemaker Abdominal: General: There is no distension. Musculoskeletal: General: Normal range of motion. Cervical back: Normal range of motion. Skin: General: Skin is warm. Comments: Left thoracic chest tube sites x 3. Well healed. Sutures intact. No erythema, no drainage, no TTP, no open lesions. No sign of infection. Neurological: Mental Status: He is alert and oriented to person, place, and time. Psychiatric: Mood and Affect: Mood normal. Behavior: Behavior normal. Thought Content: Thought content normal. Lab/Microbiology/Radiology/Diagnostic Review: Laboratory: Lab Results Component Value Date WBC 11.2 (H) 07/07/2021 HGB 8.6 (L) 07/07/2021 HCT 28.7 (L) 07/07/2021 MCV 95.7 07/07/2021 LABPLAT 351 07/07/2021 Lab Results Component Value Date GLUCOSE 119 07/07/2021 CALCIUM 8.6 07/07/2021 SODIUM 140 07/07/2021 POTASSIUM 3.6 07/07/2021 CO2 27 07/07/2021 CHLORIDE 104 07/07/2021 BUNSER 15 07/07/2021 CREATININE 1.73 (H) 07/07/2021 Lab Results Component Value Date ALT 11 07/07/2021 AST 26 07/07/2021 ALKPHOS 92 07/07/2021 BILITOT 0.2 07/07/2021 No results found for: CRP No results found for: SEDRATE Micro: Lab Results Component Value Date MICROBIOLOGY Final Report: No growth 06/21/2021 06/12/21 Pleural Fluid Cx Report ??.??(.) Final Report: Few Streptococcus intermedius Organism failed to grow adequately for susceptibility testing. Rare Staphylococcus hominis This isolate is presumed to be resistant to clindamycin based on detection of inducible clindamycinresistance. Clindamycin may still be effective in some patients. Organism STREPTOCOCCUS INTERMEDIUS STAPHYLOCOCCUS HOMINIS Resulting Agency [facility] Susceptibility Staphylococcus hominis (PAWEL) ?? INTERPRETATION Cefazolin Resistant Ceftriaxone Resistant Clindamycin Resistant Doxycycline Susceptible Erythromycin Resistant Linezolid Susceptible Oxacillin Resistant Trimethoprim with Sulfamethoxazole Susceptible Vancomycin Susceptible Imaging: CT chest without contrast Result Date: 07/10/2021 Narrative: EXAMINATION: Computed tomography of the chest without intravenous contrast HISTORY: Empyema status post left thoracotomy and decortication, follow-up. TECHNIQUE: Transaxial computed tomographic images of the chest were obtained without intravenous contrast according to the standard protocol. COMPARISON: CT chest dated 06/08/2021. FINDINGS: Mucous and debris in the trachea and bronchialtree with mucus plugging. Upper lobe predominant centrilobular and paraseptal emphysema. Tree-in-bud nodularity in the left lower lobe. Interval decrease in size in a now small left-sided empyema. New 5 mm nodular density in the left upper lobe, likely infectious or inflammatory in nature given that it was not present on CT dated 06/08/2021. Small amount of extrapleural hemorrhage layering posterior to decreasing size left empyema. No right pleural effusion. No pneumothorax. The imaged thyroid is normal. No supraclavicular or axillary lymphadenopathy. Unchanged mediastinal lymphadenopathy, for reference a subcarinal lymph node measuring 1.5 cm in short axis. 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 Heart size is normal. No pericardial effusion. Right internal jugular venous approach catheter terminates in the superior cavoatrial junction. Left chest wall pacemaker leads terminate in the right atrium and right ventricle. Severeatherosclerotic calcifications of the coronary arteries. Severe atherosclerotic calcification of the aorta. Sludge within the gallbladder. No evidence of cholecystitis. Left adrenal nodule measuring 1.3 cm with indeterminate attenuation measuring up to 30 HU is unchanged from prior exam. Hemorrhagic or proteinaceous cyst in the upper pole of the left kidney. Juxtarenal abdominal aortic aneurysm measuring 3.7 x 3.1 cm (TP:-707.5), without signs of instability. Post thoracotomy changes of left posterior 6th rib. Fracture of left posterior 7th rib. No suspicious osseous lesions. Impression: 1. Interval changes of thoracotomy with small amount of extrapleural hemorrhage layering posterior to the decreasing size left empyema. 2. 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 3. Unchanged indeterminate left adrenal nodule. 4. 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 Dictated by: Silvina Haines MD XR Chest 1 View Result Date: 06/18/2021 Narrative: EXAMINATION: 1 view chest radiograph Impression: 1 view of the chest is submitted for interpretation. Comparison is made to same day radiograph taken at 4:48 AM. Interval removal of the left thoracostomy tube. Left subclavian pacer defibrillator device with leads terminating in the right atrium and right ventricle. Unchanged loculatedleft empyema. Hazy left lower lobe opacity likely represents a combination of atelectasis and pneumonia. Emphysema. No pneumothorax. Right lung is clear. Cardiomediastinal silhouette is stable. Dictated by: Nikki Chambers M.D. The radiology attending physician has personally reviewed this study, and had reviewed and/or edited this written report and agrees with it. Electronically signed by: Dianne Weeks M.D. XR Chest 1 View Result Date: 06/17/2021 Narrative: EXAMINATION: 1 view chest radiograph Impression: Comparison is made to prior chest radiograph dated 06/15/2021 8:45 AM. Left subclavian approach cardiac pacemaker with leads projecting over right atrium and right ventricle. Left thoracostomy tube in place. Previously visualized additional left thoracostomy tube has been removed. Cardiac silhouette is normal in size. Unchanged loculated left pleural effusion/empyema with interstitialand hazy left lung airspace opacities likely representing passive atelectasis and pneumonia. Right lung is clear. No right effusion. No pneumothorax. Dictated by: Perdo Sena M.D. The radiology attending physician has personally reviewed this study, and had reviewed and/or edited this written report and agrees with it. Electronically signed by: Cesar Kahn M.D. XR Chest 1 View Result Date: 06/15/2021 Narrative: EXAMINATION: 1 view chest radiograph 1 view chest radiograph Impression: 06/15/2021 taken at 12:22 AM: 1 view of the chest is submitted for interpretation. Comparison is made to 06/12/2021. 2 left thoracostomy tubes. Left subclavian venous approach pacer makerleads in unchanged position. Unchanged loculated left pleural effusion/empyema with adjacent pulmonary opacities likely representing atelectasis or pneumonia. No right pleural effusion. No pneumothorax. Heart size is normal. 06/15/2021 taken at 8:45 AM: No significant change. Dictated by: Nikki Chambers M.D. The radiology attending physician has personally reviewed this study, and had reviewed and/or edited this written report and agrees with it. Electronically signed by: Ilir Rodríguez M.D. XR Chest 1 View Result Date: 06/15/2021 Narrative: EXAMINATION: 1 view chest radiograph 1 view chest radiograph Impression: 06/15/2021 taken at 12:22 AM: 1 view of the chest is submitted for interpretation. Comparison is made to 06/12/2021. 2 left thoracostomy tubes. Left subclavian venous approach pacer makerleads in unchanged position. Unchanged loculated left pleural effusion/empyema with adjacent pulmonary opacities likely representing atelectasis or pneumonia. No right pleural effusion. No pneumothorax. Heart size is normal. 06/15/2021 taken at 8:45 AM: No significant change. Dictated by: Nikki Chambers M.D. The radiology attending physician has personally reviewed this study, and had reviewed and/or edited this written report and agrees with it. Electronically signed by: Ilir Rodríguez M.D. XR Chest 1 View - in ICU Result Date: 06/12/2021 Narrative: EXAMINATION: 1 view chest radiograph Impression: Comparison is made to chest radiograph dated 06/10/2021. Left subclavian venous approach pacer leads in unchanged position. Interval placement of 2 left chest tubes. Small amount of soft tissue gas in the left lateral chest wall. Mildly decreased loculated left pleural effusion/empyema with adjacent pulmonary opacities representing atelectasis or pneumonia. No right lung consolidation. No pneumothorax. Stable cardiomediastinal silhouette. Electronically signed by: Saniya Tapia M.D. XR Chest 1 View Result Date: 06/11/2021 Narrative: EXAMINATION: 1 view chest radiograph Impression: The current study is compared with the prior radiograph dated CT dated 06/08/2021. Leftsubclavian atrioventricular pacemaker is noted, the ventricular lead is near the tricuspid valve. Loculated left effusion/empyema appears similar in configuration to CT. Associated patchy opacities may represent atelectasis or pneumonia. The right lung is clear with no pleural effusion. There is nopneumothorax. Cardiomediastinal silhouette is normal and unchanged. Dictated by: Ranulfo Tariq M.D. The radiology attending physician has personally reviewed this study, and had reviewed and/or edited this written report and agrees with it. Electronically signed by: Saniya Tapia M.D. US Outside Reference Result Date: 06/10/2021 Narrative: EXAMINATION: Images For Reference Purposes Only Impression: These images are for Reference purposes only and have not been reviewed by [facility]. There will be no report generated by a [facility] Radiologist. US Outside Reference Result Date: 06/10/2021 Narrative: EXAMINATION: Images For Reference Purposes Only Impression: These images are for Reference purposes only and have not been reviewed by [facility]. There will be no report generated by a [facility] Radiologist. XR Outside Reference Result Date: 06/10/2021 Narrative: EXAMINATION: Images For Reference Purposes Only Impression: These images are for Reference purposes only and have not been reviewed by [facility]. There will be no report generated by a [facility] Radiologist. XR Outside Reference Result Date: 06/10/2021 Narrative: EXAMINATION: Images For Reference Purposes Only Impression: These images are for Reference purposes only and have not been reviewed by [facility]. There will be no report generated by a [facility] Radiologist. IR Central Line Placement > 5 Years Result Date: 06/20/2021 Narrative: EXAMINATION: NONTUNNELED CENTRAL VENOUS CATHETER PLACEMENT (STD) HISTORY: 70-year-old male presenting with a left-sided empyema status post left thoracotomy and decortication, request central venous catheter for intravenous antibiotics. ATTENDING PRESENCE: Raimundo Tapia M.D., the attending radiologist was present from the beginning to the end of the procedure. Dr. Cortez (radiology fellow) was present and participated in the procedure. Dr. Landers (residential installer) was present and participated in the procedure. SEDATION: The patient did not require conscious sedation for the procedure. TECHNIQUE: The risks, benefits and alternatives were discussed and informed consent was obtained. Prior to beginning the procedure, [place] Protocol was used to confirm the patient's identity and planned procedure. Fluoroscopy time has been recorded in the electronic medical record. Maximum sterile barriers including cap, mask, hand hygiene, sterile gloves, sterile gown, large steriledrape and 2% chlorhexidine for cutaneous antisepsis were used. The skin over the right internal jugular vein was sterilely prepped, draped and infiltrated with 1% buffered lidocaine. Prior to the procedure, the target vessel was evaluated by ultrasound, an image of the patent vessel recorded, and this image placed in the patient's chart. After sterile prep, this vessel was accessed using realtime ultrasound guidance. A guidewire and catheter were then passed centrally using fluoroscopic guidance. The intravascular length from the access site to the right atrium was assessed. After dilating the tract, a dual lumen riley was inserted over the guidewire. The catheter was flushed with 100U/ml heparin and secured in place. A sterile dressing was applied. ESTIMATED BLOOD LOSS: Minimal. CONDITION: Stable DISCHARGED TO: Inpatient floor FINDINGS: The final fluoroscopic image demonstrates the catheter with its tip at the superior vena cava atrial junction. No complications are seen. Impression: Successful nontunneled catheter placement. PLAN: The catheter is ready for immediate use. When treatment is completed, this catheter can be removed at the bedside according to standard hospital protocol. Dictated by: Isauro Landers M.D. The radiology attending physician has personally reviewed this study, and had reviewed and/or edited this written report and agrees with it. Electronically signed by: Raimundo Tapia M.D. CT Body Outside Consult Result Date: 06/11/2021 Narrative: EXAMINATION: RADIOLOGY CONSULTATION ON OUTSIDE IMAGING STUDY STUDY INITIALLY PERFORMED: 06/08/2021 at [facility]. TYPE OF STUDY: Multiple CT images of the chest without intravenous contrast are provided at the time of this interpretation. CONTRAST ROUTE: No contrast was administered. The protocol was adequate to address the clinical question. The outside final report was not available at the time of this second opinion interpretation. TYPE OF CONSULTATION: Consult on outside imaging study with images submitted through [facility] DATE OF CONSULTATION: 06/11/2021 9:19 AM HISTORY: Left-sided empyema, white count 32 COMPARISON: 06/04/2021 FINDINGS: There is upper lung predominant emp hysema. There is a moderate size left-sided pleural effusion which tracks along the left major fissure, grossly unchanged. Lack of intravenous contrast limits evaluation for pleural enhancement. There is also a small right pleural effusion. No pneumothorax. There are scattered tiny pulmonary nodules which are likely infectious etiology (for reference a 2 mm nodule in the right lower lobe, table position -[id number]). Heart is within normal limits. There are coronary atherosclerotic changes. There is aleft chest wall pacer with the leads terminating in the right atrium and proximal right ventricle. There are atherosclerotic changes of the thoracic aorta. There is outpouching of the inferior aspectof the aortic arch, compatible with a penetrating atherosclerotic ulcer, with the total aortic diameter measuring approximately 3.3 cm. Atherosclerotic ulcer. There is mediastinal adenopathy. There is fat stranding of the left aspect of the pericardial fat. Visualized portions of the thyroid appearnormal. There is a small hiatal hernia. There is a partially visualized left adrenal nodule measures approximately approximately 20 Hounsfield units. No suspicious osseous lesion. Impression: 1. Moderate left-sided pleural effusion in keeping with known empyema. Left lower lobe opacity could represent atelectasis or pneumonia. Lack of intravenous contrast limits evaluation forpleural and lung enhancement. 2. Aortic arch penetrating atherosclerotic ulcer. The aorta at this level measures approximately 3.3 cm in diameter, inclusive of the ulcer. The findings, conclusions and recommendations within this report do not replace the initial findings, conclusions and recommendations made at the facility where the study was performed based upon the imaging and clinical condition at that time. Comparison with the prior report and clinical history is necessary. The provided images may or may not represent the [place] source data set and thus may contain changes that may lowerthe accuracy of this second-opinion interpretation. Electronically signed by: Bartolome Kathleen M.D. , PHD CT Body Outside Reference Result Date: 06/10/2021 Narrative: EXAMINATION: Images For Reference Purposes Only Impression: These images are for Reference purposes only and have not been reviewed by [facility]iology. There will be no report generated by a [facility] Radiologist. NM Outside Reference Result Date: 06/10/2021 Narrative: EXAMINATION: Images For Reference Purposes Only Impression: These images are for Reference purposes only and have not been reviewed by [facility]. There will be no report generated by a [facility] Radiologist. Assessment/Plan 70 y.o. male transferred from OSH for left empyema.??He was diagnosed with pneumonia about 1 month ago that was treated unsuccessfully with azithro and prednisone taper. Admitted to OSH with luekocytosis of [address] chest??06/04 showed small to moderate multiloculated left pleural effusion consistent with empyema which was managed medically with antibiotics as patient declined drainage. Due to lack of improvement he later underwent thoracentesis on 06/08 with removal of thick purulent fluid and was transferred on 06/10 for surgical evaluation. Cultures from pleural fluid grew Strep intermedius. He was transferred here for surgical evaluation on 06/10.??He was continued on vancomycin and cefepime. He underwent left thoracotomy with decortication on 06/12. Intraop findings included severalfluid collections interiorly and posteriorly with several abscesses in lower lobe, able to decorticate to reinflate the lower lobe although consolidated in some area, also created a pleural tent. ??Cultures from OR growing Strep intermedius and Staph hominis. Vancomycin was switched to linezolid on06/14 due to high vanc troughs and continued on cefepime. CXR on 06/[address] in placed and mildly decreased left empyema with adjacent pulmonary opacities. Leukocytosis improved, 12.1. Pt clinically improving and chest tube removed. Opted to continue on IV for at least another 2 weeks then likely ok to transition to augmentin/doxycyline once he's showing more improvement in symptoms. Empyema (CMS/HCC) (HCC) - Currently receiving Ceftriaxone 2 g IV every 24 hours, Metronidazole 500 mg PO every 8 hours, andDoxycycline 100 mg every 12 hours. Duration x 4 weeks for Left empyema, Cx + S intermedius and S hominis. - Plan to treat for 4 weeks with tentative stop date of 07/[address] chest WO prior to follow up. If patient clinically feeling better then at 4 week yuriy will possibly transition to Augmentin and Doxycycline. - Today in clinic overall patient reports feeling better, SOB is at it's baseline, continues on 2L NC. Denies recent fever, chills, or night sweats. Has been tolerating IV and PO abx with no noted adverse effects. - He was scheduled for CT chest WO but not until later this afternoon - At this time will continue with IV Ceftriaxone, Metronidazole, and Doxycycline pending repeat CT chest. Pending results will either stop abx or transition to oral Augmentin and Doxycycline. - No labs today - No follow-up at this time, will call patient with CT results and abx plan - Discussed with patient the rational for treatment, culture results, risk of recurrent infection, signs/symptoms of recurrent infection, and to contact ID clinic with any questions or concerns Follow up: - PRN Visit Diagnosis: 1. Empyema (CMS/HCC) (HCC) I, BATSHEVA Grace, the Nurse Practitioner, have reviewed this patient with Dr. Malini Molina. Cosigned by Malini Fernandez MD at 07/12/2021 7:55 PM WAREHOUSER HOUSER HOUSER documented in this encounter Miscellaneous Notes * Assessment & Plan Note - Jacey Holloway NP - 07/10/2021 8:43 PM WAREHOUSER Associated Problem(s): Empyema (CMS/HCC) (HCC) - Currently receiving Ceftriaxone 2 g IV every 24 hours, Metronidazole 500 mg PO every 8 hours, andDoxycycline 100 mg every 12 hours. Duration x 4 weeks for Left empyema, Cx + S intermedius and S hominis. - Plan to treat for 4 weeks with tentative stop date of 07/[address] chest WO prior to follow up. If patient clinically feeling better then at 4 week yuriy will possibly transition to Augmentin and Doxycycline. - Today in clinic overall patient reports feeling better, SOB is at it's baseline, continues on 2L NC. Denies recent fever, chills, or night sweats. Has been tolerating IV and PO abx with no noted adverse effects. - He was scheduled for CT chest WO but not until later this afternoon - At this time will continue with IV Ceftriaxone, Metronidazole, and Doxycycline pending repeat CT chest. Pending results will either stop abx or transition to oral Augmentin and Doxycycline. - No labs today - No follow-up at this time, will call patient with CT results and abx plan - Discussed with patient the rational for treatment, culture results, risk of recurrent infection, signs/symptoms of recurrent infection, and to contact ID clinic with any questions or concerns HOUSER HOUSER documented in this encounter Plan of Treatment Not on file documented as of this encounter Visit Diagnoses Diagnosis Empyema (CMS/HCC) (HCC)- Primary documented in this encounter Discontinued Medications Medication Sig Discontinue Reason Start Date End Da te cefTRIAXone (ROCEPHIN) syringeIndications:empy sanjuana Infuse 20 mL (2,000 mg total) into a venous catheter daily 06/23/2021 07/10/2021 documented as of this encounter Care Teams Wage And Salary Administrator Relationship Specialty Start Date End Date Ross Espinosa MD [address] [place] [address] PCP - General 06/11/21 03/02/22 documented as of this encounter
--- OUTSIDE RECORDS SUMMARY | 2024-09-12 15:44 | XMS_ITS | Encounter Summary ---
Author Organization [facility] Home Care Servic es Address [address] [place] [address] Phone Care Team Providers Care Litigation Support Analyst Name Role Phone Ross Espinosa MD Primary Care Provider [phone] Reason for Visit * Auth/Cert Specialty Diagnoses / Procedures Referred By Jovany t Referred To Contact Referral ID Status Reason Start Date Expiration Date Visits Re quested Visits Authorized [id number] 1 1 Encounter Details Date Type Department Care Team (Late st Contact Info) Description 07/01/2021 Home Care Visit [facility] Home Health [address] [address] [address] [place] [address] Galileo Ruablcava, SY TELEPHONE ENCOUNTER Social History Tobacco Use Types Packs/Day Years Used Date Smoking Tobacco: Former Cigarettes Q uit: 08/22/2009 Smokeless Tobacco: Never Sex and Gender Information Value Date Recorded Sex Assigned at Not on file Legal Sex Male 1:43 PM CDT Gender Identity Male 08/12/2022 2:14 PM 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
--- OUTSIDE RECORDS SUMMARY | 2024-09-12 15:44 | XMS_ITS | Encounter Summary ---
Author Organization [facility] Home Care Servic es Address [address] [place] [address] Phone Care Team Providers Care Property Insurance Claims Examiner Name Role Phone Ross Espinosa MD Primary Care Provider [phone] Reason for Visit * Auth/Cert Specialty Diagnoses / Procedures Referred By Jovany t Referred To Contact Referral ID Status Reason Start Date Expiration Date Visits Re quested Visits Authorized [id number] 1 1 Encounter Details Date Type Department Care Team (Late st Contact Info) Description 07/08/2021 Home Care Visit [facility] Home Health [address] [place] [address] Duglas Gonzales, [facility] TELEPHONE ENCOUNTER Social History Tobacco Use Types Packs/Day Years Used Date Smoking Tobacco: Former Cigarettes Q uit: 08/22/2009 Smokeless Tobacco: Never Sex and Gender Information Value Date Recorded Sex Assigned at Not on file Legal Sex Male 1:43 PM CDT Gender Identity Male 08/12/2022 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
--- OUTSIDE RECORDS SUMMARY | 2024-09-12 15:44 | XMS_ITS | Encounter Summary ---
Author Organization [facility] Home Care Servic es Address [address] [place] [address] Phone Care Team Providers Care Respiratory Therapy Technician Name Role Phone Ross Espinosa MD Primary Care Provider [phone] Reason for Visit * Auth/Cert Specialty Diagnoses / Procedures Referred By Jovany t Referred To Contact Referral ID Status Reason Start Date Expiration Date Visits Re quested Visits Authorized [id number] 1 1 Encounter Details Date Type Department Care Team (Late st Contact Info) Description 07/10/2021 Home Care Visit [facility] Home Health [address] [address] [address] [place] [address] Alycia Xavier RN TRAVEL SCREENING CASE COMMUNICATION Social History Tobacco Use Types Packs/Day Years Used Date Smoking Tobacco: Former Cigarettes Q uit: 08/22/2009 Smokeless Tobacco: Never Sex and Gender Information Value Date Recorded Sex Assigned at Not on file Legal Sex Male 1:43 PM CDT Gender Identity Male 08/12/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
--- OUTSIDE RECORDS SUMMARY | 2024-09-12 15:44 | XMS_ITS | Encounter Summary ---
Author Organization [facility] Address [address] [place] [address] Phone Care Team Providers Care Orthopaedic Physician Assistant Name Role Phone Ross Espinosa MD Primary Care Provider [phone] [phone] Encounter Details Date Type Department Care Team (Late st Contact Info) Description 07/10/2021 Orders Only [facility] Surgery [address] [place] [address] Radha Schneider Social History Tobacco Use Types Packs/Day Years Used Date Smoking Tobacco: Former Cigarettes Q uit: 08/22/2009 Smokeless Tobacco: Never Sex and Gender Information Value Date Recorded Sex Assigned at Not on file Legal Sex Male 1:43 PM CDT Gender Identity Male 08/12/2022 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
--- OUTSIDE RECORDS SUMMARY | 2024-09-12 15:44 | XMS_ITS | Encounter Summary ---
Author Organization [facility] Healthcare Address [address] [place] [address] Care Team Providers Care Bark Press Operator Name Role Phone Ross Espinosa MD Primary Care Provider [phone] Encounter Details Date Type Department Care Team (Late st Contact Info) Description 06/30/2021 7:50 PM PROCESS OWNER Lab [address] [address] Social History Tobacco Use Types Packs/Day Years Used Date Smoking Tobacco: Former Cigarettes Q uit: 08/22/2009 Smokeless Tobacco: Never Sex and Gender Information Value Date Recorded Sex Assigned at Not on file Legal Sex Male 1:43 PM CDT Gender Identity Male 08/12/2022 2:14 PM PROCESS OWNER Sexual Orientation Not on file documented as of this encounter Plan of Treatment Not on file documented as of this encounter Procedures Procedure Name Priority Date/Time Associated Diagnosis Comments GLUCOSE, RANDOM (OUTREACH) Routine 06/30/2021 3:00 PM PROCESS OWNER EGFR Routine 06/30/2021 3:00 PM PROCESS OWNER DIFFERENTIAL AUTO Routine 06/30/2021 3:0 0 PM PROCESS OWNER COMPREHENSIVE METABOLIC PANEL WITHOUT GLUCOSE (OUTREACH) Routine 06/30/2021 3:00 PM PROCESS OWNER CBC WITH AUTO DIFFERENTIAL Routine 06/30/2021 3:00 PM PROCESS OWNER documented in this encounter Results * (ABNORMAL) eGFR (06/30/2021 3:00 PM PROCESS OWNER) eGFR 32(L) 90 - 130 mL/min/1.7 3 m2 [facility] Comment: Interpretive Data Reference Interval Normal [...] interpretive data was last reviewed 2020 Blood 06/30/2021 3:00 PM PROCESS OWNER 06/30/2021 8:07 PM PROCESS OWNER us Notinfile Unknown LAB BLOOD ORDERABLES Final Res ult [facility] Department [place] [address] * (ABNORMAL) Differential, auto (06/30/2021 3:00 PM PROCESS OWNER) Pathologist [facility] Neutrophil abs 6.3 1.7 - 6.5 K/cumm [facility] Imm gran abs 0.5(H) 0.0 - 0.1 K/cumm [facility] Lymphocyte abs 1.1 0.8 - 3.3 K/cumm [facility] Monocyte abs 1.4(H) 0.2 - 0.8 K/cumm [facility] Eosinophil abs 0.3 0.0 - 0.5 K/cumm [facility] Basophil abs 0.0 0.0 - 0.1 K/cumm [facility] Neutrophil pct 65.9 % [facility] Comment: Interpretive Data Percent cell count reference ranges are not reported, since discordance with absolute values may lead to misinterpretation of CBC data. Current Interpretive Data was last revised on 2017. Imm gran pct 5.2 % [facility] Comment: Interpretive Data Percent cell count reference ranges are not reported, since discordance with absolute values may lead to misinterpretation of CBC data. Current Interpretive Data was last revised on 2017. Lymphocyte pct 11.6 % [facility] Comment: Interpretive Data Percent cell count reference ranges are not reported, since discordance with absolute values may lead to misinterpretation of CBC data. Current Interpretive Data was last revised on 2017. Monocyte pct 14.2 % [facility] Comment: Interpretive Data Percent cell count reference ranges are not reported, since discordance with absolute values may lead to misinterpretation of CBC data. Current Interpretive Data was last revised on 2017. Eosinophil pct 2.8 % [facility] Comment: Interpretive Data Percent cell count reference ranges are not reported, since discordance with absolute values may lead to misinterpretation of CBC data. Current Interpretive Data was last revised on 2017. Basophil pct 0.3 % [facility] Comment: Interpretive Data Percent cell count reference ranges are not reported, since discordance with absolute values may lead to misinterpretation of CBC data. Current Interpretive Data was last revised on 2017. Blood 06/30/2021 3:00 PM PROCESS OWNER 06/30/2021 7:47 PM PROCESS OWNER us Notinfile Unknown LAB BLOOD ORDERABLES Final Res ult [facility] Department [place] [address] * (ABNORMAL) CBC with auto differential (06/30/2021 3:00 PM PROCESS OWNER) WBC 9.6 3.8 - 9.9 K/cumm [facility] Hgb 7.7(L) 13.0 - 17.5 g/dL [facility] Hct 25.3(L) 38.9 - 50.3 % [facility] Plt 147(L) 150 - 400 K/cumm [facility] MPV 10.7 9.1 - 12.3 fL [facility] RBC 2.69(L) 4.30 - 5.80 M/cumm [facility] MCV 94.1 81.3 - 96.4 fL [facility] MCH 28.6 27.1 - 33.3 pg [facility] MCHC 30.4(L) 32.3 - 35.7 g/dL [facility] RDW CV 15.3(H) 11.1 - 14.9 % [facility] RDW SD 51.5(H) 35.7 - 48.1 fL [facility] NRBC abs 0.00 0.00 - 0.01 K/cumm [facility] Blood 06/30/2021 3:00 PM PROCESS OWNER 06/30/2021 7:47 PM PROCESS OWNER us Notinfile Unknown LAB BLOOD ORDERABLES Final Res ult [facility] Department [place] [address] * Glucose, random (Outreach) (06/30/2021 3:00 PM PROCESS OWNER) Pathologist [facility] Glucose 114 70 - 199 mg/dL [facility] Comment: Interpretive Data Fasting glucose >/= [...] interpretive data was last revised 2017. Blood 06/30/2021 3:00 PM PROCESS OWNER 06/30/2021 7:47 PM PROCESS OWNER us Notinfile Unknown LAB BLOOD ORDERABLES Final Res ult Performing Organization Address City/[facility]/ZIP Co de Phone Number [facility] Department [place] [email or web address] [address] * (ABNORMAL) Comprehensive metabolic panel, without glucose (Outreach) (06/30/2021 3:00 PM PROCESS OWNER) Sodium 139 135 - 145 mmol/L [facility] Potassium, pl 3.3 3.3 - 4.9 mmol/L [facility] Chloride 100 97 - 110 mmol/L [facility] CO2 27 22 - 32 mmol/L [facility] Anion gap 12 2 - 15 mmol/L [facility] BUN 20 8 - 25 mg/dL [facility] Creatinine 2.04(H) 0.80 - 1.30 mg/dL [facility] Calcium 7.5(L) 8.5 - 10.3 mg/dL [facility] Protein, pl 7.3 6.5 - 8.5 g/dL [facility] Albumin 2.4(L) 3.5 - 5.0 g/dL [facility] Bilirubin, total 0.2 0.1 - 1.2 mg/dL [facility] Alk phos 120 40 - 130 Units/L [facility] AST 23 10 - 50 Units/L [facility] ALT 15 7 - 55 Units/L [facility] Blood 06/30/2021 3:00 PM PROCESS OWNER 06/30/2021 7:47 PM PROCESS OWNER us Notinfile Unknown LAB BLOOD ORDERABLES Final Res ult [facility] Department [place] [address] documented in this encounter Visit Diagnoses Not on filedocumented in this encounter Care Teams Bark Press Operator Relationship Specialty Start Date End Date Ross Espinosa MD [address] [place] [address] PCP - General 06/11/21 03/02/22 documented as of this encounter
--- OUTSIDE RECORDS SUMMARY | 2024-09-12 15:44 | XMS_ITS | Encounter Summary ---
Author Organization [facility] Address [address] [place] [address] Phone Care Team Providers Care Band Sewer Name Role Phone Ross Espinosa MD Primary Care Provider [phone] [phone] Encounter Details Date Type Department Care Team (Late st Contact Info) Description 07/09/[address] [facility] Infectious Diseases [address] [place] [address] [address] [place] [address] Shanice George Social History Tobacco Use Types Packs/Day Years Used Date Smoking Tobacco: Former Cigarettes Q uit: 08/22/2009 Smokeless Tobacco: Never Sex and Gender Information Value Date Recorded Sex Assigned at Not on file Legal Sex Male 1:43 PM CDT Gender Identity Male 08/12/2022 2:14 PM WELDING MACHINE OPERATOR THERMIT Sexual Orientation Not on file documented as of this encounter Miscellaneous Notes * Telephone Encounter - Forrest Blackman RPh - 07/09/2021 4:21 PM WELDING MACHINE OPERATOR THERMIT Danny Prasad We will send 2 more doses of Ceftriaxone tonight for Mr Hill and then follow up tomorrow/ send more tomorrow if needed. Forrest ING MACHINE OPERATOR THERMIT * Telephone Encounter - Shanice George - 07/09/2021 3:50 PM CST Please continue until at least Tuesday per Dr. Molina will follow up after CT scan scheduled for chuck Prasad ING MACHINE OPERATOR THERMIT documented in this encounter Plan of Treatment Not on file documented as of this encounter Visit Diagnoses Not on filedocumented in this encounter Care Teams Band Sewer Relationship Specialty Start Date End Date Ross Espinosa MD [address] [place] [address] PCP - General 06/11/21 03/02/22 documented as of this encounter
--- OUTSIDE RECORDS SUMMARY | 2024-09-12 15:44 | XMS_ITS | Encounter Summary ---
Author Organization [facility] es Address [address] [place] [address] Phone Care Team Providers Care Examining Chair Assembler Name Role Phone Ross Espinosa MD Primary Care Provider +1 [phone] Reason for Visit * Auth/Cert Specialty Diagnoses / Procedures Referred By Jovany t Referred To Contact Referral ID Status Reason Start Date Expiration Date Visits Re quested Visits Authorized [id number] 1 1 Encounter Details Date Type Department Care Team (Late st Contact Info) Description 07/07/2021 3:00 PM ASSISTANT BANQUET MANAGER Home Care Visit [facility] [address] [address] [address] [place] [address] Briana Ornelas RN SN HOME VISIT Social History Tobacco Use Types Packs/Day Years Used Date Smoking Tobacco: Former Cigarettes Q uit: 08/22/2009 Smokeless Tobacco: Never Sex and Gender Information Value Date Recorded Sex Assigned at Not on file Legal Sex Male 1:43 PM CDT Gender Identity Male 08/12/2022 2:14 PM ASSISTANT BANQUET MANAGER Sexual Orientation Not on file documented as of this encounter Last Filed Vital Signs Vital Sign Reading Time Taken Comments Blood Pressure 140/84 07/07/2021 1:59 PM ASSISTANT BANQUET MANAGER Pulse 94 07/07/2021 1:59 PM ASSISTANT BANQUET MANAGER Temperature 36.1 ??C (96.9 ??F) 07/07/2021 1:59 PM CS T Respiratory Rate 20 07/07/2021 1:59 PM ASSISTANT BANQUET MANAGER Oxygen Saturation 94% 07/07/2021 1:59 PM ASSISTANT BANQUET MANAGER Inhaled Oxygen Concentration - - Weight - - Height - - Body Mass Index - - documented in this encounter Plan of Treatment Not on file documented as of this encounter Visit Diagnoses Not on filedocumented in this encounter Home Health Visit - Care Plan Visit Details Visit Type -SN Home Visit Discipline -Retirement Problems Problem Description Start Date Status Goals Interve ntions Homebound Status Disciplines: Retirement, Physical Therapy, Occupational Therapy, Home Health Aide, Medical Social Work Patient's homebound status 06/25/2021 Active 1 goal linked to scheduled/docume nted intervention 1 goal intervention scheduled/documen darrion in this visit Monitor patient's vital signs every home health visit Disciplines: Retirement, Physical Therapy, Occupational Therapy, Home Health Aide Monitor patient's vital signs every home health visit. 06/25/2021 Active 1 goal linked to scheduled/docume nted intervention 1 goal intervention scheduled/documen darrion in this visit Pain Disciplines: Retirement, Physical Therapy, Occupational Therapy, Home Health Aide, Medical Social Work Alteration in comfort 06/25/2021 Active 1 goal linked to scheduled/docume nted intervention 1 goal intervention scheduled/documen darrion in this visit Need to Collect Specimen Sample Disciplines: Retirement Need to collect specimen sample 06/25/2021 Active - 1 problem intervention scheduled/documen darrion in this visit Learning/Teaching Needs - IV Therapy Disciplines: Retirement Teaching and learning needs for performing home IV therapy 06/25/2021 Active - 1 problem intervention scheduled/documen darrion in this visit Knowledge Deficit - Wound Care Disciplines: Retirement, Physical Therapy, Occupational Therapy, Home Health Aide [...] visit during episode of care Description: Home claim clinician to measure vital signs during every home health visit during episode of care. Monitor patient's vital signs every home health visit No Report that pain has been reduced or controlled Description: Report that pain has been reduced or controlled Pain No Knowledgeable on Woundcare Description: Patient/caregiver will be knowledgeable on woundcare procedure, wound healing and when to seek medical attention by 11.5.2021. Knowledge Deficit - Wound Care No Interventions [...] of care Completed VSS. Afebrile. 02 sat 94% on RA. Instruct on pain management techniques Description: Instruct in pharmacologic and nonpharmacologic pain management techniques. Problem:Pain Goal:Report that pain has been reduced or controlled Completed Pt. instructed to take pain med prior to pain getting to its worst level. Verbalized understanding. Lab draw Description: Labs: weekly CBC with Diff and CMP starting 06.24 or 06.25.2021. Fax results to [facility] infusion at [phone] and [phone]. DX code: J86.9. Ordering dr: Dr Susy Carrasquillo MD. Problem:Need to Collect Specimen Sample Completed Sample obtained from R neck CVL using aseptic technique for CBC/CMP as ordered. } Next lab draw due 07/14/21 IV Access Care/Maintenance Description: Skilled Nurse to [...] of each line upon completion of infusion/flushes. Problem:Learning/Tea eran Needs - IV Therapy Completed PICC care maintenance completed to R neck CVL. Wound care Description: Wash left back surgical site with soap and water daily and pat dry. Leave open to air. May cover with dry dressing and secure with tape daily, if has drainage and as needed if becomes soiled or dislodged. Wound care by Sn/pt/caregiver. Problem:Knowledge Deficit - Wound Care Goal:Knowledgeable on Woundcare Completed Left back surgical site open to air. No drainage. Pt. is knowledgable regardmg cleansing daily with soap and water. documented in this encounter Care Teams Examining Chair Assembler Relationship Specialty Start Date End Date Ross Espinosa MD [address] [place] [address] PCP - General 06/11/21 03/02/22 documented as of this encounter
--- OUTSIDE RECORDS SUMMARY | 2024-09-12 15:44 | XMS_ITS | Encounter Summary ---
Author Organization [facility] Healthcare Address [address] [place] [address] Care Team Providers Care Field Marketing Coordinator Name Role Phone Ross Espinosa MD Primary Care Provider [phone] [phone] Reason for Referral * MRI/CAT/PET Scan (Routine) - Closed Specialty Diagnoses / Procedures Referred By Jovany t Referred To Contact Radiology Diagnoses Empyema (CMS/HCC) (HCC) Procedures CT chest without contrast Malini Fernandez MD Phone: tel: fax: [address] [phone] Referral ID Status Reason Start Date Expiration Date Visits Re quested Visits Authorized [id number] Closed 06/23/2021 07/23/2022 1 1 ESSOR OF FRENCH Reason for Visit * MRI/CAT/PET Scan (Routine) - Closed Specialty Diagnoses / Procedures Referred By Jovany carver Referred To Contact Radiology Diagnoses Empyema (CMS/HCC) (HCC) Procedures CT chest without contrast Malini Fernandez MD Phone: tel: fax: [address] [phone] Referral ID Status Reason Start Date Expiration Date Visits Re quested Visits Authorized [id number] Closed 06/23/2021 07/23/2022 1 1 Encounter Details Date Type Department Care Team (Latest Contact Info) Description 07/09/2021 4:01 PM PROFESSOR OF FRENCH - 07/09/2021 11:59 PM PROFESSOR OF FRENCH Hospital Encounter [facility] [address] [place] [address] Malini Fernandez MD [address] [facility] [address] [place] [address] Empyema (CMS/HCC) ([facility] Discharge Disposition: Discharge to home or self care Social History Tobacco Use Types Packs/Day Years Used Date Smoking Tobacco: Former Cigarettes Q uit: 08/22/2009 Smokeless Tobacco: Never Sex and Gender Information Value Date Recorded Sex Assigned at Not on file Legal Sex Male 1:43 PM CDT Gender Identity Male 08/12/2022 2:14 PM PROFESSOR OF FRENCH Sexual Orientation Not on file documented as [...] into each nostril as needed (hypoxia) 06/24/2021 tamsulosin (FLOMAX) 0.4 mg extended release capsule Take 2 capsules (0.8 mg total) by mouth daily with dinner 06/23/2021 traMADoL (ULTRAM) 50 mg tablet Take 1 tablet (50 mg total) by mouth every 6 (six) hours as needed 04/08/2021 doxycycline (MONODOX) 100 mg capsuleIndicatio ns:empyema Take 1 capsule (100 mg total) by mouth 2 (two) times a day 60 capsule 06/23/2021 1 metroNIDAZOLE (FLAGYL) 500 mg tabletIndication s:empyema Take 1 tablet (500 mg total) by mouth 3 (three) times a day 90 tablet 1 06/23/2021 2 apixaban (ELIQUIS) 2.5 mg tablet Take 2.5 mg by mouth 2 (two) times a day 2 atorvastatin (LIPITOR) 40 mg tablet Take 40 mg by mouth daily 04/14/2021 2 cefTRIAXone (ROCEPHIN) syringeIndicatio ns:empyema Infuse 20 mL (2,000 mg total) into a venous catheter daily 06/23/2021 1 cephalexin (KEFLEX) 500 mg capsuleIndicatio ns:Empyema (CMS/HCC) (HCC) [The details of the medication are not available because there are pending changes by a home health clinician.] 42 capsule 07/10/2021 1 cetirizine 10 mg capsule Take by mouth 4 clopidogreL (PLAVIX) 75 mg tablet Take 1 tablet (75 mg total) by mouth daily 04/17/2021 3 heparin sod,porcine/0.9 % NaCl (HEPARIN FLUSH IV)Indications:F lushing Infuse 5 mL into a venous catheter daily. Heparin 50 units/5ml Flush both lines daily after last saline flush Indications: temporary redness of face and neck 2 melatonin 5 mg capsule Take by mouth 4 multivitamin capsule Take 1 capsule by mouth daily 4 omeprazole (PriLOSEC) 20 mg capsule TAKE 1 CAPSULE BY MOUTH EVERY MORNING BEFORE BREAKFAST 03/06/2021 2 oxyCODONE (ROXICODONE) 5 mg immediate release tabletIndication s:Pain Take 1 tablet (5 mg total) by mouth every 4 (four) hours as needed for pain 60 tablet 06/23/2021 2 polyethylene glycol (MIRALAX) 17 gram packetIndication s:constipation Take 1 packet (17 g total) by mouth daily 06/23/2021 2 sodium chloride 0.9% (Normal Saline Flush) injectionIndicat ions:Flushing Infuse 10 mL into a venous catheter daily. Flush before and after iv antibiotic therapy. Flush 2nd lumen daily with saline followed by heparin Indications: temporary redness of face and neck 06/24/2021 2 Spiriva Respimat 2.5 mcg/actuation inhaler INHALE 2 PUFFS BY MOUTH ONCE DAILY 04/21/2021 5 documented as of this encounter Discharge Disposition Disposition Code Departure Means Destination Discharge to home or self care documented in this encounter Plan of Treatment Not on file documented as of this encounter Procedures Procedure Name Priority Date/Time Associated Diagnosis Comments CT CHEST WO CONTRAST Schedule Routine, Read Routine (OP Routine) 07/09/2021 5:14 PM PROFESSOR OF FRENCH Empyema (CMS/HCC) (HCC) documented in this encounter Results * CT chest without contrast (07/09/2021 5:14 PM PROFESSOR OF FRENCH) Anatomical Region Laterality Modality Body N/A Computed Tomogra phy 07/10/2021 9:05 AM PROFESSOR OF FRENCH Impressions 07/12/2021 1:07 PM PROFESSOR OF FRENCH 1. ??Interval changes of thoracotomy with small amount of extrapleural hemorrhage layering posterior to the decreasing size left empyema. Small amount of gas in the left pleural space. 2. ??Unchanged ductus diverticulum/aneurysm given its broad margins, less likely penetrating atherosclerotic ulcer of the aortic arch. 3. ??Unchanged indeterminate bilateral adrenal nodules. 4. ??Juxtarenal abdominal aortic aneurysm measuring 3.5 x 3.1 cm, without signs of instability. Dictated by: Silvina Haines MD The radiology attending physician has personally reviewed this study, and had reviewed and/or edited this written report and agrees with it. Electronically signed by: Gaviota Gallo M.D. Narrative 07/12/2021 1:07 PM PROFESSOR OF FRENCH EXAMINATION: ??Computed tomography of the chest without intravenous contrast HISTORY: Empyema status post left thoracotomy and decortication, follow-up. TECHNIQUE: ??Transaxial computed tomographic images of the chest were obtained without intravenous contrast according to the standard protocol. COMPARISON: CT chest dated 06/08/2021. FINDINGS: ?? Mucous and debris in the trachea and bronchial tree with mucus plugging. Upper lobe predominant centrilobular [...] node measuring 1.5 cm in short axis. Unchanged broad shaped contour deformity of the aortic arch near/just beyond the left subclavian artery origin, likely representing a ductus diverticulum/aneurysm. Heart size is normal. No pericardial effusion. Right internal jugular venous approach catheter terminates in the superior cavoatrial junction. Left chest wall pacemaker leads terminate in the right atrium and right ventricle. Severe atherosclerotic calcifications of the coronary arteries. Severe atherosclerotic calcification of the aorta. Sludge within the gallbladder. No evidence of cholecystitis. Left adrenal nodule measuring 1.3 cm with indeterminate attenuation measuring ~30 HU is unchanged from prior exam. ??1 cm indeterminate right adrenal nodule also unchanged. Hemorrhagic or proteinaceous cyst in the upper pole of the left kidney. Juxtarenal abdominal aortic aneurysm measuring 3.5 x 3.1 cm (TP:-707.5), without signs of instability. Post thoracotomy changes of left posterior 6th rib. Fracture of left posterior 7th rib. No suspicious osseous lesions. us Malini Carrasquillo MD IMG CT PROC EDURES Final Result documented in this encounter Visit Diagnoses Diagnosis Empyema (CMS/HCC) (HCC) documented in this encounter Care Teams Field Marketing Coordinator Relationship Specialty Start Date End Date Ross Espinosa MD [address] [place] [address] PCP - General 06/11/21 03/02/22 documented as of this encounter
--- OUTSIDE RECORDS SUMMARY | 2024-09-12 15:44 | XMS_ITS | Encounter Summary ---
Author Organization [facility] Home Care [facility] es Address [address] [place] [address] Phone Care Team Providers Care Elevator Adjuster Name Role Phone Ross Espinosa MD Primary Care Provider [phone] [phone] Reason for Visit * Auth/Cert Specialty Diagnoses / Procedures Referred By Jovany t Referred To Contact Referral ID Status Reason Start Date Expiration Date Visits Re quested Visits Authorized [id number] 1 1 Encounter Details Date Type Department Care Team (Late st Contact Info) Description 06/30/2021 Home Care Visit [facility] Home Health [address] [address] [address] [place] [address] Mariana Howard OT TRAVEL SCREENING CASE COMMUNICATION Social History Tobacco Use Types Packs/Day Years Used Date Smoking Tobacco: Former Cigarettes Q uit: 08/22/2009 Smokeless Tobacco: Never Sex and Gender Information Value Date Recorded Sex Assigned at Not on file Legal Sex Male 1:43 PM CDT Gender Identity Male 08/12/2022 2:14 PM SENIOR ENLISTED ADVISOR Sexual Orientation Not on file documented as of this encounter Plan of Treatment Not on file documented as of this encounter Visit Diagnoses Not on filedocumented in this encounter Care Teams Elevator Adjuster Relationship Specialty Start Date End Date Ross Espinosa MD [address] [place] [address] PCP - General 06/11/21 03/02/22 documented as of this encounter
--- OUTSIDE RECORDS SUMMARY | 2024-09-12 15:45 | XMS_ITS | Encounter Summary ---
Author Organization [facility] Home Care Servic es Address [address] [place] [address] Phone Care Team Providers Care Grinding Machine Operator Automatic Name Role Phone Ross Espinosa MD Primary Care Provider [phone] [phone] Reason for Visit * Auth/Cert Specialty Diagnoses / Procedures Referred By Bintaac t Referred To Contact Referral ID Status Reason Start Date Expiration Date Visits Re quested Visits Authorized [id number] 1 1 Encounter Details Date Type Department Care Team (Late st Contact Info) Description 06/29/2021 Home Care Visit [facility] Home Health [address] [address] [address] [place] [address] Galileo Rubalcava, SY TRAVEL SCREENING CASE COMMUNICATION Social History Tobacco Use Types Packs/Day Years Used Date Smoking Tobacco: Former Cigarettes Q uit: 08/22/2009 Smokeless Tobacco: Never Sex and Gender Information Value Date Recorded Sex Assigned at Not on file Legal Sex Male 1:43 PM CDT Gender Identity Male 08/12/2022 2:14 PM BIOLOGICAL INSPECTOR Sexual Orientation Not on file documented as of this encounter Plan of Treatment Not on file documented as of this encounter Visit Diagnoses Not on filedocumented in this encounter Care Teams Grinding Machine Operator Automatic Relationship Specialty Start Date End Date Ross Espinosa MD [address] [place] [address] PCP - General 06/11/21 03/02/22 documented as of this encounter
--- OUTSIDE RECORDS SUMMARY | 2024-09-12 15:45 | XMS_ITS | Encounter Summary ---
Author Organization [facility] Address [address] [facility] [address] [place] [address] Phone Care Team Providers Care Executive Casino Host Name Role Phone Ross Espinosa MD Primary Care Provider +1 [phone] Encounter Details Date Type Department Care Team (Late st Contact Info) Description 06/29/2021 Telephone [facility] Surgery [address] [facility] 8th [place] [address] [place] [address] Ella Ellis NP [address] [facility] [address] [place] [address] Social History Tobacco Use Types Packs/Day Years Used Date Smoking Tobacco: Former Cigarettes Q uit: 08/22/2009 Smokeless Tobacco: Never Sex and Gender Information Value Date Recorded Sex Assigned at Not on file Legal Sex Male 1:43 PM CDT Gender Identity Male 08/12/2022 2:14 PM CALL CENTER SPECIALIST Sexual Orientation Not on file documented as of this encounter Miscellaneous Notes * Telephone Encounter - Ella Ellis NP - 06/29/2021 12:29 PM CST Error. Please see 7 day post op note. CENTER SPECIALIST documented in this encounter Plan of Treatment Not on file documented as of this encounter Visit Diagnoses Not on filedocumented in this encounter Care Teams Executive Casino Host Relationship Specialty Start Date End Date Ross Espinosa MD [address] [place] [address] PCP - General 06/11/21 03/02/22 documented as of this encounter
--- OUTSIDE RECORDS SUMMARY | 2024-09-12 15:45 | XMS_ITS | Encounter Summary ---
Author Organization [facility] Home Care [facility] Address [address] [place] [address] Phone Care Team Providers Care Data Entry Clerk Name Role Phone Ross Espinosa MD Primary Care Provider [phone] [phone] Reason for Visit * Auth/Cert Specialty Diagnoses / Procedures Referred By Jovany t Referred To Contact Referral ID Status Reason Start Date Expiration Date Visits Re quested Visits Authorized [id number] 1 1 Encounter Details Date Type Department Care Team (Late st Contact Info) Description 06/30/2021 Home Care Visit [facility] Home Health [address] [place] [address] Duglas Gonzales, [facility] TRAVEL SCREENING CASE COMMUNICATION Social History Tobacco Use Types Packs/Day Years Used Date Smoking Tobacco: Former Cigarettes Q uit: 08/22/2009 Smokeless Tobacco: Never Sex and Gender Information Value Date Recorded Sex Assigned at Not on file Legal Sex Male 1:43 PM CDT Gender Identity Male 08/12/2022 2:14 PM TIMBER SIZER OPERATOR Sexual Orientation Not on file documented as of this encounter Plan of Treatment Not on file documented as of this encounter Visit Diagnoses Not on filedocumented in this encounter Care Teams Data Entry Clerk Relationship Specialty Start Date End Date Ross Espinosa MD [address] [place] [address] PCP - General 06/11/21 03/02/22 documented as of this encounter
--- OUTSIDE RECORDS SUMMARY | 2024-09-12 15:45 | XMS_ITS | Encounter Summary ---
Author Organization [facility] Home [facility] Address [address] [place] [address] Phone Care Team Providers Care Prepared Foods Associate Name Role Phone Ross Espinosa MD Primary Care Provider [phone] [phone] Reason for Visit * Auth/Cert Specialty Diagnoses / Procedures Referred By Jovany t Referred To Contact Referral ID Status Reason Start Date Expiration Date Visits Re quested Visits Authorized [id number] 1 1 Encounter Details Date Type Department Care Team (Late st Contact Info) Description 06/29/2021 Home Care Visit [facility] Home Health [address] [address] [address] [place] [address] Galileo Rubalcava, SY TELEPHONE ENCOUNTER Social History Tobacco Use Types Packs/Day Years Used Date Smoking Tobacco: Former Cigarettes Q uit: 08/22/2009 Smokeless Tobacco: Never Sex and Gender Information Value Date Recorded Sex Assigned at Not on file Legal Sex Male 1:43 PM CDT Gender Identity Male 08/12/2022 2:14 PM PATIENT SERVICE ASSOCIATE Sexual Orientation Not on file documented as of this encounter Plan of Treatment Not on file documented as of this encounter Visit Diagnoses Not on filedocumented in this encounter Care Teams Prepared Foods Associate Relationship Specialty Start Date End Date Ross Espinosa MD [address] [place] [address] PCP - General 06/11/21 03/02/22 documented as of this encounter
--- OUTSIDE RECORDS SUMMARY | 2024-09-12 15:45 | XMS_ITS | Encounter Summary ---
Author Organization [facility] Address [address] [facility] [address] [place] [address] Care Team Providers Care Supervisor Ore Dressing Name Role Phone Ross Espinosa MD Primary Care Provider +1 [phone] Encounter Details Date Type Department Care Team (Late st Contact Info) Description 06/30/2021 Telephone [facility] Cardiology [address] [facility] [address] [place] [address] Josiah Lay MD [address] [address] Social History Tobacco Use Types Packs/Day Years Used Date Smoking Tobacco: Former Cigarettes Q uit: 08/22/2009 Smokeless Tobacco: Never Sex and Gender Information Value Date Recorded Sex Assigned at Not on file Legal Sex Male 1:43 PM CDT Gender Identity Male 08/12/2022 2:14 PM LEGAL DIRECTOR Sexual Orientation Not on file documented as of this encounter Miscellaneous Notes * Telephone Encounter - Molly Louis RN - 06/30/2021 8:39 AM CST Let patient know that the carotid Doppler did not show any significant blockages in the carotid arteries. ??Continue current medical treatment and follow-up on previously scheduled appointment Let patient know that Doppler studies of the lower extremities did show some impairment in the circulation. ??If no ongoing severe symptoms, then I will see the patient on the follow-up visit as previously scheduled. ??Continue current medications and daily walking. Lm on vm per DK, Instructed pt to call back for any questions or if having severe symptoms in the legs and we can get him in to see DK sooner. L DIRECTOR L DIRECTOR documented in this encounter Plan of Treatment Not on file documented as of this encounter Visit Diagnoses Not on filedocumented in this encounter Care Teams Supervisor Ore Dressing Relationship Specialty Start Date End Date Ross Espinosa MD [address] [place] [address] PCP - General 06/11/21 03/02/22 documented as of this encounter
--- OUTSIDE RECORDS SUMMARY | 2024-09-12 15:45 | XMS_ITS | Encounter Summary ---
Author Organization [facility] Home Care Servic es Address [address] [place] [address] Phone Care Team Providers Care Cooperative Education Director Name Role Phone Ross Espinosa MD Primary Care Provider [phone] [phone] Reason for Visit * Auth/Cert Specialty Diagnoses / Procedures Referred By Jovany t Referred To Contact Referral ID Status Reason Start Date Expiration Date Visits Re quested Visits Authorized [id number] 1 1 Encounter Details Date Type Department Care Team (Late st Contact Info) Description 06/30/2021 Home Care Visit [facility] Home Health [address] [place] [address] Duglas Gonzales, [facility] TELEPHONE ENCOUNTER Social History Tobacco Use Types Packs/Day Years Used Date Smoking Tobacco: Former Cigarettes Q uit: 08/22/2009 Smokeless Tobacco: Never Sex and Gender Information Value Date Recorded Sex Assigned at Not on file Legal Sex Male 1:43 PM CDT Gender Identity Male 08/12/2022 2:14 PM SOAKING PIT OPERATOR Sexual Orientation Not on file documented as of this encounter Plan of Treatment Not on file documented as of this encounter Visit Diagnoses Not on filedocumented in this encounter Care Teams Cooperative Education Director Relationship Specialty Start Date End Date Ross Espinosa MD [address] [place] [address] PCP - General 06/11/21 03/02/22 documented as of this encounter
--- OUTSIDE RECORDS SUMMARY | 2024-09-12 15:45 | XMS_ITS | Encounter Summary ---
Author Organization [facility] Home Care Servic es Address [address] [place] [address] Phone Care Team Providers Care Warehouse Material Handler Name Role Phone Ross Espinosa MD Primary Care Provider [phone] [phone] Reason for Visit * Auth/Cert Specialty Diagnoses / Procedures Referred By Jovany t Referred To Contact Referral ID Status Reason Start Date Expiration Date Visits Re quested Visits Authorized [id number] 1 1 Encounter Details Date Type Department Care Team (Latest Contact Info) Description 06/30/2021 11:30 AM PHOTOSTATIC COPY MAKER Home Care Visit [facility] [address] [place] [address] Mariana Howard OT OT INITIAL EVALUATION Social History Tobacco Use Types Packs/Day Years Used Date Smoking Tobacco: Former Cigarettes Q uit: 08/22/2009 Smokeless Tobacco: Never Sex and Gender Information Value Date Recorded Sex Assigned at Not on file Legal Sex Male 1:43 PM CDT Gender Identity Male 08/12/2022 2:14 PM PHOTOSTATIC COPY MAKER Sexual Orientation Not on file documented as of this encounter Last Filed Vital Signs Vital Sign Reading Time Taken Comments Blood Pressure 142/72 06/30/2021 12:29 PM PHOTOSTATIC COPY MAKER Pulse 96 06/30/2021 12:29 PM PHOTOSTATIC COPY MAKER Temperature 36.7 ??C (98 ??F) 06/30/2021 12:29 PM PHOTOSTATIC COPY MAKER Respiratory Rate 22 06/30/2021 12:29 PM PHOTOSTATIC COPY MAKER Oxygen Saturation 92% 06/30/2021 12:29 PM PHOTOSTATIC COPY MAKER Inhaled Oxygen Concentration - - Weight - - Height - - Body Mass Index - - documented in this encounter Plan of Treatment Not on file documented as of this encounter Visit Diagnoses Not on filedocumented in this encounter Home Health Visit - Care Plan Visit Details Visit Type -OT Initial Evalu ation Discipline -Occupational Therapy Problems Problem Description Start [...] visit during episode of care Description: Home continuity coordinator to measure vital signs during every home [...] - Wound Care Goal:Knowledgeable on Woundcare Scheduled ADL Instruction Description: Instruct patient/caregiver for improved ADL performance. Problem:OT Impaired ADLs Completed Pt instructed on positioning for self care in order to perform safely d/t balance deficits. Pt instructed on positioning with walker to perform standing activities. Pt expresses good understanding of instructions. documented in this encounter Home Health Visit - Actions and Narratives Actions Pt seen for OT eval s/p hosp italization 06/10-06/23/21 due to Empyema, ALFREDO, pleural effusion. Pt had thorocotmy with chest tube placement on 06/12/21. PMH: pacemaker, pvd, copd, ckd4, htn, anemia, luna, asthma, lle stent placement Pt living with is sister who is his primary caregiver. Pt using walker to assist with ambulation. Pt has kumari cath. Pt's urine is darker today and not as frequent. OT case conferenced with SN Fox and she is making visit after OT and will assess. Pt's goals are to regain strength, endurance, and ind for ADL. Pt agreeable to OT 1-2wk4 for ADL and HEP instruction. documented in this encounter Care Teams Warehouse Material Handler Relationship Specialty Start Date End Date Ross Espinosa MD [address] [place] [address] PCP - General 06/11/21 03/02/22 documented as of this encounter
--- OUTSIDE RECORDS SUMMARY | 2024-09-12 15:45 | XMS_ITS | Encounter Summary ---
Author Organization [facility] Home Care Servic es Address [address] [place] [address] Phone Care Team Providers Care Disabilities Services Officer Name Role Phone Ross Espinosa MD Primary Care Provider [phone] Reason for Visit * Auth/Cert Specialty Diagnoses / Procedures Referred By Jovany t Referred To Contact Referral ID Status Reason Start Date Expiration Date Visits Re quested Visits Authorized [id number] 1 1 Encounter Details Date Type Department Care Team (Late st Contact Info) Description 06/30/2021 5:00 PM SENIOR POLICY ASSOCIATE Home Care Visit [facility] [address] [address] [address] [place] [address] Giuliana Rivera RN SN HOME VISIT Social History Tobacco Use Types Packs/Day Years Used Date Smoking Tobacco: Former Cigarettes Q uit: 08/22/2009 Smokeless Tobacco: Never Sex and Gender Information Value Date Recorded Sex Assigned at Not on file Legal Sex Male 1:43 PM CDT Gender Identity Male 08/12/2022 2:14 PM SENIOR POLICY ASSOCIATE Sexual Orientation Not on file documented as of this encounter Last Filed Vital Signs Vital Sign Reading Time Taken Comments Blood Pressure 120/60 06/30/2021 2:45 PM SENIOR POLICY ASSOCIATE Pulse 100 06/30/2021 2:45 PM SENIOR POLICY ASSOCIATE Temperature 37 ??C (98.6 ??F) 06/30/2021 2:45 PM SENIOR POLICY ASSOCIATE Respiratory Rate 24 06/30/2021 2:45 PM SENIOR POLICY ASSOCIATE Oxygen Saturation 99% 06/30/2021 2:45 PM SENIOR POLICY ASSOCIATE Inhaled Oxygen Concentration - - Weight - - Height - - Body Mass Index - - documented in this encounter Plan of Treatment Not on file documented as of this encounter Visit Diagnoses Not on filedocumented in this encounter Home Health Visit - Care Plan Visit Details Visit Type -SN Home Visit Discipline -[facility] Problems Problem Description Start Date Status Goals Interventions Homebound Status Disciplines: [facility], Physical Therapy, Occupational Therapy, Home Health Aide, Medical Social Work Patient's homebound status 06/25/2021 Active 1 goal linked to scheduled/docume nted intervention 1 goal intervention scheduled/documen darrion in this visit Medications Disciplines: [facility], Physical Therapy, Occupational Therapy Management of home medications 06/25/2021 Active 1 goal linked to scheduled/docume nted intervention 1 goal intervention scheduled/documen darrion in this visit Monitor patient's vital signs every home health visit Disciplines: [facility], Physical Therapy, Occupational Therapy, Home Health Aide Monitor patient's vital signs every home health visit. 06/25/2021 Active 1 goal linked to scheduled/docume nted intervention 1 goal intervention scheduled/documen darrion in this visit Infection Prevention Disciplines: [facility], Physical Therapy, Occupational Therapy, Home Health Aide Infection Prevention 06/25/2021 Active 1 goal linked to scheduled/docume nted intervention Standardized Guidelines Disciplines: [facility], Physical Therapy, Occupational Therapy, Home Health Aide, Medical Social Work Standardized Guidelines 06/25/2021 Active 1 goal linked to scheduled/docume nted intervention 1 goal intervention scheduled/documen darrion in this visit Aide Supervisory Visit Disciplines: [facility], Physical Therapy, Occupational Therapy Supervision of HH Aide 06/25/2021 Active 1 goal linked to scheduled/docume nted intervention 1 goal intervention scheduled/documen darrion in this visit [place] Precautions Disciplines: [facility], Physical Therapy, Occupational Therapy, Home Health Aide, Medical Social Work [place] Precautions 06/25/2021 Active 1 goal linked to scheduled/docume nted intervention 1 goal intervention scheduled/documen darrion in this visit Need to Collect Specimen Sample Disciplines: [facility] Need to collect specimen sample 06/25/2021 Active - 1 problem intervention scheduled/documen darrion in this visit Safety concerns Disciplines: [facility] Safety needs related to infusion administration 06/25/2021 Active - 1 problem intervention scheduled/documen darrion in this visit Learning/Teachin g Needs - IV Therapy Disciplines: [facility] Teaching and learning needs for performing home IV therapy 06/25/2021 Active 1 goal linked to scheduled/docume nted intervention 1 problem intervention scheduled/documen darrion in this visit Knowledge Deficit - Wound Care Disciplines: [facility], Physical Therapy, Occupational Therapy, Home Health Aide Deficiency of cognitive information related to wound care 06/25/2021 Active 1 goal linked to scheduled/docume nted intervention 3 goal interventions scheduled/documen darrion in this visit Wound Care Disciplines: [facility], Physical Therapy, Occupational Therapy, Home Health Aide [...] of the episode of care Medications No Measure vital signs during every home health visit during episode of care Description: Home case manager specialist to measure vital signs during every home [...] visit. Aide Supervisory Visit Progressing No Demonstrate knowledge of universal precautions Description: Demonstrate knowledge of universal precautions [place] Precautions No Safely perform IV administration Description: Skilled Nurse/Patient/Caregiver will demonstrate ability to safely perform administration of IV by 06.24.2021. Patient/Caregiver will demonstrate ability to correctly perform flushing technique throughout the treatment episode. Learning/Teaching Needs - IV Therapy Progressing No Knowledgeable on Woundcare Description: Patient/caregiver will [...] and needs frequent rest breaks. Instruct on medication delivery system Description: Instruct patient/caregiver on medication delivery system. Keep up to date medication list with patient Problem:Medication s Goal:Understand and follow medication therapy Completed with variance Patient refused Attempt to instruct on filling med senior production planner. Pt states he doesn't need it. He has always had a med senior production planner and with the help of his sister and med list he will be able to fill med senior production planner. Monitor Vital Signs Description: Monitor blood pressure, pulse, oxygen saturation, respirations Problem:Monitor patient's vital signs every home health visit Goal:Measure vital signs during every home health visit during episode of care Completed Physician notification Description: Use standardized clinical guidelines for notifying physician of abnormal vital signs or clinical findings Problem:Standardiz ed Guidelines Goal:Understanding of when to notify MD in absence of home care staff Completed Mendy at dr Espinosa notified of pustule on penis and is having 3-4 loose stools daily. Mendy verb understanding and will notify dr. Provided with sn #. Aide Supervisory Visit Description: Aide Supervision at least every 14 days Problem:Aide Supervisory Visit Goal:Complete aide supervisory visit Completed Aspects of Care Description: Instruct patient/caregiver on universal precautions and home infection control measures Problem:[place] Precautions Goal:Demonstrate knowledge of universal precautions Observed pt using gait belts to sit up in bed. Pt needed mod assist of one to sit up while pt using belt. Pt states that is why his right side hurts. Discussed how a hospital bed will assist the pt to sit up, get out of bed and reposition easier. Pt states he does not feel he needs a hospital bed. Kumari drainage bag changed due to had a slit in the bag. Instructed to clean alethea area bid with soap and water to prevent uti, notify hhc or dr if urine becomes cloudy, has shred, has foul odor or has temp of 100 or >. Pt verb understanding. Pt states going to see a urologist next tuesday concerning the kumari. Lab draw Description: Labs: weekly CBC with Diff and CMP starting 11.3 or 11.4.2020. Fax results to [facility] infusion at [phone] and [phone]. DX code: J86.9. Ordering dr: Dr Susy Carrasquillo MD. Problem:Need to Collect Specimen Sample Completed Via aseptic technique labs drawn from right neck central line. Flushed with 10 cc of ns, 6cc of blood discard, labs drawn, flushed with 20 cc of ns then 5ml of heparin. Pt tolerated well. Arch express to slate picker, #[id number]. Instruct on IV complications Description: Instruct patient/caregiver on how to manage breaks in line, signs/symptoms of complications, who to contact for complications and how to contact the nurse, MD and infusion service Problem:Safety concerns Completed Instructed if unable to flush red lumen, if has drainage under dressing, becomes red, swelling or pain. Pt verb understanding. Dressing change Description: Skilled Nurse to instruct patient/caregiver on dressing change frequency. Central venous line dressing to be changed 48 hours if there is gauze under the occlusive dressing, dressing is soiled or non-occlusive. Weekly IV site dressing changes to be performed if no issues. Securement device to be used with appropriate lines. Skilled Nurse to instruct patient/caregiver on the purpose of doing measurements of line migration and arm circumference weekly and PRN. Type of line: central line Problem:Learning/T eaching Needs - IV Therapy Completed Via sterile technique dressing removed from right neck central line. Via sterile technique site cleaned with chloraprep swab and skin prep, both allowed to dry, transparent dressing appied, end caps changed on both lumens. Pt tolerated well Instruct family on wound care Description: Instruct patient/caregiver on wound care per MD orders per Wound Education Booklet, may include written directions and or photos for patient/caregiver education. Problem:Knowledge Deficit - Wound Care Goal:Knowledgeable on Woundcare Completed Instructed to continue to clean wounds to penis with soap and water daily. Instructed to get moisture barrier ointment with zinc to apply to skin bid and as needed after loose stools to prevent skin breakdown. Pt and sister verb understanding. Instruct patient on maintaining adequate nutrition and hydration Description: Instruct patient on maintaining adequate nutrition for wound healing. Instruct pt/cg on eating/offering a balanced diet. Instruct on adequate protein sources per Wound Education Booklet. Consult RD for chronic malnutrition, stage 3 or 4 pressure ulcer. Problem:Knowledge Deficit - Wound Care Goal:Knowledgeable on Woundcare Completed Instructed to drink 46-640z of water daily to prevent dehydration and a way to know getting adequate fluids is if urine is light benji or straw colored. Instructed if urine is dark benji or tea colored this is a s/s that not getting enough fluids in. Being hyrdrated will also help prevent skin breakdown. Pt verb understanding. Wound care Description: Wash left back surgical site with soap and water daily and pat dry. Leave open to air. May cover with dry dressing and secure with tape daily, if has drainage and as needed if becomes soiled or dislodged. Wound care by Sn/pt/caregiver. Problem:Knowledge Deficit - Wound Care Goal:Knowledgeable on Woundcare Scheduled Skilled assessment wound Description: Full wound assessment including measurement weekly. Wound assessment each visit Problem:Wound Care Goal:Progression towards healing Completed documented in this encounter Care Teams Disabilities Services Officer Relationship Specialty Start Date End Date Ross Espinosa MD [address] [place] [address] PCP - General 06/11/21 03/02/22 documented as of this encounter
--- OUTSIDE RECORDS SUMMARY | 2024-09-12 15:45 | XMS_ITS | Encounter Summary ---
Author Organization [facility] Home Care Servic es Address [address] [place] [address] Phone Care Team Providers Care Certified Alcohol Drug Counselor Name Role Phone Ross Espinosa MD Primary Care Provider [phone] Encounter Details Date Type Department Care Team (Late st Contact Info) Description 06/29/2021 Orders Only [facility] [address] [place] [address] Forrest Blackman RPh Social History Tobacco Use Types Packs/Day Years Used Date Smoking Tobacco: Former Cigarettes Q uit: 08/22/2009 Smokeless Tobacco: Never Sex and Gender Information Value Date Recorded Sex Assigned at Not on file Legal Sex Male 1:43 PM CDT Gender Identity Male 08/12/2022 2:14 PM HAND WOODWORKING SANDER Sexual Orientation Not on file documented as of this encounter Progress Notes * Forrest Blackman RPh - 06/29/2021 6:22 PM CST SOC 06/24/2021- Dr Carrasquillo/ Forrest Blackman PharmD/ faxed discharge orders Maintain Geraldine with 10ml NS and Heparin 50 units per 5ml per protocol Infuse Ceftriaxone 2gm in 100ml NS IV q24h by Elastomeric pump over 60 minutes at 100ml per hour Labs: qweek CBC with diff, CMP Length of therapy: 07/09/2021 1 SNV qweek for 4 weeks for patient assessment, teaching, IV catheter care, lab work 6 PRN visits for additional teaching, line care, labs, or other symptom management WOODWORKING SANDER documented in this encounter Plan of Treatment Not on file documented as of this encounter Visit Diagnoses Not on filedocumented in this encounter Care Teams Certified Alcohol Drug Counselor Relationship Specialty Start Date End Date Ross Espinosa MD [address] [place] [address] PCP - General 06/11/21 03/02/22 documented as of this encounter
--- OUTSIDE RECORDS SUMMARY | 2024-09-12 15:46 | XMS_ITS | Encounter Summary ---
Author Organization [facility] Home Care Servic es Address [address] [place] [address] Phone Care Team Providers Care Physicist Solid State Name Role Phone Ross Espinosa MD Primary Care Provider [phone] [phone] Reason for Visit * Auth/Cert Specialty Diagnoses / Procedures Referred By Jovany carver Referred To Contact Referral ID Status Reason Start Date Expiration Date Visits Re quested Visits Authorized [id number] 1 1 Encounter Details Date Type Department Care Team (Late st Contact Info) Description 06/29/2021 2:30 PM EPILEPSY PHYSICIAN Home Care Visit [facility] [address] [address] [address] [place] [address] Kayla Watson CNA AIDE HOME VISIT Social History Tobacco Use Types Packs/Day Years Used Date Smoking Tobacco: Former Cigarettes Q uit: 08/22/2009 Smokeless Tobacco: Never Sex and Gender Information Value Date Recorded Sex Assigned at Not on file Legal Sex Male 1:43 PM CDT Gender Identity Male 08/12/2022 2:14 PM EPILEPSY PHYSICIAN Sexual Orientation Not on file documented as of this encounter Last Filed Vital Signs Vital Sign Reading Time Taken Comments Blood Pressure 159/72 06/29/2021 2:17 PM EPILEPSY PHYSICIAN Pulse 93 06/29/2021 2:17 PM EPILEPSY PHYSICIAN Temperature 36.2 ??C (97.2 ??F) 06/29/2021 2:17 PM CS T Respiratory Rate 22 06/29/2021 2:17 PM EPILEPSY PHYSICIAN Oxygen Saturation 92% 06/29/2021 2:17 PM EPILEPSY PHYSICIAN Inhaled Oxygen Concentration - - Weight - [...] Completed Aide clean/tidy Description: Tidy patient area, coal picker clutter and store in collaboration with patient. Problem:Aide area/unit care Goal:Environment cleanup completed as ordered Completed Aide change bed linens Description: Change bed linens and make bed. Problem:Aide area/unit care Goal:Environment cleanup completed as ordered Scheduled with variance Patient refused Aide assist with bathing Description: Assistance with shower. Problem:Aide personal care Goal:Personal care completed as ordered Completed Pt stated doctors orders no showers at this timec, so he received a sponge bath. Aide assist with oral care Description: Assist [...] Goal:Aide elimination tasks completed as ordered Completed Also provided kumari care. Aide assist with toileting Description: Assist patient [...] Completed documented in this encounter Care Teams Physicist [place] Relationship Specialty Start Date End Date Ross Espinosa MD [address] [place] [address] PCP - General 06/11/21 03/02/22 documented as of this encounter
--- OUTSIDE RECORDS SUMMARY | 2024-09-12 15:46 | XMS_ITS | Encounter Summary ---
Author Organization [facility] Home Care Serv[facility] es Address [address] [place] [address] Phone Care Team Providers Care Perforator Name Role Phone Ross Espinosa MD Primary Care Provider [phone] Reason for Visit * Auth/Cert Specialty Diagnoses / Procedures Referred By Jovany t Referred To Contact Referral ID Status Reason Start Date Expiration Date Visits Re quested Visits Authorized [id number] 1 1 Encounter Details Date Type Department Care Team (Latest Contact Info) Description 06/29/2021 12:00 PM SALES FLOOR TEAM MEMBER Home Care Visit [facility] [address] [place] [address] Galileo Rubalcava, PT PT INITIAL EVALUATION Social History Tobacco Use Types Packs/Day Years Used Date Smoking Tobacco: Former Cigarettes Q uit: 08/22/2009 Smokeless Tobacco: Never Sex and Gender Information Value Date Recorded Sex Assigned at Not on file Legal Sex Male 1:43 PM CDT Gender Identity Male 08/12/2022 2:14 PM SALES FLOOR TEAM MEMBER Sexual Orientation Not on file documented as of this encounter Last Filed Vital Signs Vital Sign Reading Time Taken Comments Blood Pressure 155/72 06/29/2021 12:19 PM SALES FLOOR TEAM MEMBER Pulse 93 06/29/2021 12:19 PM SALES FLOOR TEAM MEMBER Temperature 36.2 ??C (97.2 ??F) 06/29/2021 12:[address] Respiratory Rate 22 06/29/2021 12:19 PM SALES FLOOR TEAM MEMBER Oxygen Saturation 92% 06/29/2021 12:19 PM SALES FLOOR TEAM MEMBER Inhaled Oxygen Concentration - - Weight - - Height - - Body Mass Index - - documented in this encounter Plan of Treatment Not on file documented as of this encounter Visit Diagnoses Not on filedocumented in this encounter Home Health Visit - Care Plan Visit Details Visit Type -PT Initial Evalu ation Discipline -Physical Therapy Problems Problem Description Start Date Status Goals Interve ntions Homebound Status Disciplines: Custodial, Physical Therapy, Occupational Therapy, Home Health Aide, Medical Social Work Patient's homebound status 06/25/2021 Active 1 goal linked to scheduled/docume nted intervention 1 goal intervention scheduled/documen darrion in this visit Monitor patient's vital signs every home health visit Disciplines: Custodial, Physical Therapy, Occupational Therapy, Home Health Aide Monitor patient's vital signs every home health visit. 06/25/2021 Active 1 goal linked to scheduled/docume nted intervention 1 goal intervention scheduled/documen darrion in this visit Standardized Guidelines Disciplines: Custodial, Physical Therapy, Occupational Therapy, Home Health Aide, Medical Social Work Standardized Guidelines 06/25/2021 Active 1 goal linked to scheduled/docume nted intervention 1 goal intervention scheduled/documen darrion in this visit Safety concerns Disciplines: Custodial, Physical Therapy, Occupational Therapy, Home Health Aide, Medical Social Work Alteration in safety 06/25/2021 Active 1 goal linked to scheduled/docume nted intervention 2 goal interventions scheduled/documen darrion in this visit Knowledge Deficit - Wound Care Disciplines: Custodial, Physical Therapy, Occupational Therapy, Home Health Aide Deficiency of cognitive information related to wound care 06/25/2021 Active 1 goal linked to scheduled/docume nted intervention 1 goal intervention scheduled/documen darrion in this visit Wound Care Disciplines: Custodial, Physical Therapy, Occupational Therapy, Home Health Aide [...] visit during episode of care Description: Home gluing machine offbearer to measure vital signs during every home [...] health visit during episode of care Completed Home Care Staff Absence Description: In absence of Home Care staff the patient/caregiver should call home care 24 hour non emergency # for questions or concerns that is on the front of homecare folder and to call 911 for emergencies. Problem:Standardized Guidelines Goal:Understanding of when to notify MD in absence of home care staff Completed In absence of Home Care staff the patient/caregiver should continue with HEP and previously provided agency instruction. Contact RN using provided phone number on folder if appropriate, contact MD office as necessary, contact 911/EMS in case of emergency. Instruct Fall Prevention Description: Instruct patient/caregiver in [...] - Wound Care Goal:Knowledgeable on Woundcare Completed Patient reports that caregiver has performed recently, declines this date. Skilled assessment wound Description: Full wound assessment including measurement weekly. Wound assessment each visit Problem:Wound Care Goal:Progression towards healing Completed Home Exercise Program (HEP) Description: Instruct [...] training activities. Problem:PT Impaired Functional Mobility/Balance Completed Tinetti - Therapeutic Exercise Description: Perform therapeutic exercise, progressing as tolerated. Problem:PT Impaired Functional Mobility/Balance Completed seated marches, hip abduction, hip extension, calf raises, heel kicks x 10 each bilat. rest breaks required between exercises. documented in this encounter Home Health Visit - Actions and Narratives Actions Freddy Hill is a 70 year old male who was hospitalized 06/10/21 - 06/23/21 due to emphysema, ALFREDO, pleural effusion. Patient has kumari catheter, currently on oxygen 3L prn. Medical hx: pacemaker, pvd, copd, ckd4, htn, anemia, luna, asthma, lle stent placement. Home Setup: 2 steps to enter/exit home without handrails. Bedroom on first floor. Patient is living with his sister who is his primary caregiver. Patient getting a divorce. 2 dogs in the home. DME: front wheeled walker, single point cane TU seconds Tinetti: 5x STS: 29 seconds with bilat UE assit. Patient goal: to generally improve endurance, return to normal life. Be able to navigate steps. PLOF: ambulating both indoors and outside without AD (sometimes used cane outside), walked about a block outside, cutting grass, etc. No hx of falls. documented in this encounter Care Teams Perforator Relationship Specialty Start Date End Date Ross Espinosa MD [address] [place] [address] PCP - General 06/11/21 03/02/22 documented as of this encounter
--- OUTSIDE RECORDS SUMMARY | 2024-09-12 15:46 | XMS_ITS | Encounter Summary ---
Author Organization [facility] Home Care [facility] es Address [address] [place] [address] Phone Care Team Providers Care Unit Assistant Name Role Phone Ross Espinosa MD Primary Care Provider [phone] Reason for Visit * Auth/Cert Specialty Diagnoses / Procedures Referred By Jovany t Referred To Contact Referral ID Status Reason Start Date Expiration Date Visits Re quested Visits Authorized [id number] 1 1 Encounter Details Date Type Department Care Team (Late st Contact Info) Description 06/26/2021 12:30 PM CDT Home Care Visit [facility] [address] [place] [address] Giuliana Rivera RN SN HOME VISIT Social History Tobacco Use Types Packs/Day Years Used Date Smoking Tobacco: Former Cigarettes Q uit: 08/22/2009 Smokeless Tobacco: Never Sex and Gender Information Value Date Recorded Sex Assigned at Not on file Legal Sex Male 1:43 PM CDT Gender Identity Male 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 Sexual Orientation Not on file documented as of this encounter Last Filed Vital Signs Vital Sign Reading Time Taken Comments Blood Pressure 140/80 06/26/2021 11:20 AM CDT Pulse 100 06/26/2021 11:20 AM CDT Temperature 36.6 ??C (97.8 ??F) 06/26/2021 11:20 AM C DT Respiratory Rate 24 06/26/2021 11:20 AM CDT Oxygen Saturation 99% 06/26/2021 11:20 AM CDT Inhaled Oxygen Concentration - - Weight - - Height - - Body Mass Index - - documented in this encounter Plan of Treatment Not on file documented as of this encounter Visit Diagnoses Not on filedocumented in this encounter Home Health Visit - Care Plan Visit Details Visit Type -SN Home Visit Discipline -Mcfp Problems Problem Description Start Date Status Goals Interve ntions Homebound Status Disciplines: Mcfp, Physical Therapy, Occupational Therapy, Home Health Aide, Medical Social Work Patient's homebound status 06/25/2021 Active 1 goal linked to scheduled/docume nted intervention 1 goal intervention scheduled/documen darrion in this visit Monitor patient's vital signs every home health visit Disciplines: Mcfp, Physical Therapy, Occupational Therapy, Home Health Aide Monitor patient's vital signs every home health visit. 06/25/2021 Active 1 goal linked to scheduled/docume nted intervention 1 goal intervention scheduled/documen darrion in this visit Safety concerns Disciplines: Mcfp, Physical Therapy, Occupational Therapy, Home Health Aide, Medical Social Work Alteration in safety 06/25/2021 Active 1 goal linked to scheduled/docume nted intervention 1 goal intervention scheduled/documen darrion in this visit Learning/Teaching Needs - IV Therapy Disciplines: Mcfp Teaching and learning needs for performing home IV therapy 06/25/2021 Active - 1 problem intervention scheduled/documen darrion in this visit Knowledge Deficit - Wound Care Disciplines: Mcfp, Physical Therapy, Occupational Therapy, Home Health Aide Deficiency of cognitive information related to wound care 06/25/2021 Active 1 goal linked to scheduled/docume nted intervention 2 goal interventions scheduled/documen darrion in this visit Wound Care Disciplines: Mcfp, Physical Therapy, Occupational Therapy, Home Health Aide Wound care needed 06/25/2021 Active 1 goal linked to scheduled/docume nted intervention 2 goal interventions scheduled/documen darrion in this visit Goals Goal Associated Problem Outcome Goal Met? Visit Notes Patient recieves care at the most appropriate care setting Description: Patient receives care at the most appropriate care setting. Homebound Status Progressing No Measure vital signs during every home health visit during episode of care Description: Home drum handler to measure vital signs during every home [...] health visit during episode of care Scheduled Instruct Fall Prevention Description: Instruct patient/caregiver in methods to prevent falls Problem:Safety concerns Goal:Demonstrate use of safety precautions Instructed pt and sister to not stand or walk if dizzy, maintain clear pathways and have good lighting during the day and night lights at night. Pt and sister verb understanding. IV Administration Description: Skilled Nurse to instruct patient/caregiver on how to properly administer medication saline and heparin. Pt receiving Ceftriaxone 2gm in ns 100ml, infuse iv over 60 min every 24 hours per Elastomeric Device at 100ml/hr. Length of therapy 07.09.2021. Skilled Nurse to instruct patient/caregiver to administer IV medication as ordered including saline and heparin flushes. Reason for Therapy: .Pyothorax without fistula, J86.9. Problem:Learning/Teach ing Needs - IV Therapy Sister denies issues with infusion Instruct family on wound care Description: Instruct patient/caregiver on wound care per MD orders per Wound Education Booklet, may include written directions and or photos for patient/caregiver education. Problem:Knowledge Deficit - Wound Care Goal:Knowledgeable on Woundcare Completed Instructed to wash wound to penis with soap and water and have pcp advise on care. Pt verb understanding. States has had it before and it went away on its own. Wound care Description: Wash left back surgical [...] visit Problem:Wound Care Goal:Progression towards healing Completed Wound Photo Description: Take and transmit wound photo. Problem:Wound Care Goal:Progression towards healing Completed documented in this encounter Care Teams Unit Assistant Relationship Specialty Start Date End Date Ross Espinosa MD [address] [place] [address] PCP - General 06/11/21 03/02/22 documented as of this encounter
--- OUTSIDE RECORDS SUMMARY | 2024-09-12 15:46 | XMS_ITS | Encounter Summary ---
Author Organization [facility] Home Care Servic es Address [address] [place] [address] Phone Care Team Providers Care Citrus Peeler Name Role Phone Ross Espinosa MD Primary Care Provider [phone] Reason for Visit * Auth/Cert Specialty Diagnoses / Procedures Referred By Jovany t Referred To Contact Referral ID Status Reason Start Date Expiration Date Visits Re quested Visits Authorized [id number] 1 1 Encounter Details Date Type Department Care Team (Late st Contact Info) Description 06/26/2021 Home Care Visit [facility] Home Health [address] [place] [address] Giuliana Rivera RN TRAVEL SCREENING CASE COMMUNICATION Social History Tobacco Use Types Packs/Day Years Used Date Smoking Tobacco: Former Cigarettes Q uit: 08/22/2009 Smokeless Tobacco: Never Sex and Gender Information Value Date Recorded Sex Assigned at Not on file Legal Sex Male 1:43 PM CDT Gender Identity 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
--- OUTSIDE RECORDS SUMMARY | 2024-09-12 15:46 | XMS_ITS | Encounter Summary ---
Author Organization [facility] Home Care Servic es Address [address] [place] [address] Phone Care Team Providers Care Generating Plant Superintendent Name Role Phone Ross Espinosa MD Primary Care Provider [phone] [phone] Reason for Visit * Auth/Cert Specialty Diagnoses / Procedures Referred By Jovany t Referred To Contact Referral ID Status Reason Start Date Expiration Date Visits Re quested Visits Authorized [id number] 1 1 Encounter Details Date Type Department Care Team (Latest Contact Info) Description 06/24/2021 1:00 PM CDT Home Care Visit [facility] [address] [address] [address] [place] [address] Giuliana Rivera RN SN OASIS START OF CARE Social History Tobacco Use Types Packs/Day Years Used Date Smoking Tobacco: Former Cigarettes Q uit: 08/22/2009 Smokeless Tobacco: Never Sex and Gender Information Value Date Recorded Sex Assigned at Not on file Legal Sex Male 1:43 PM CDT Gender Identity Male 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 Sexual Orientation Not on file documented as of this encounter Plan of Treatment Not on file documented as of this encounter Visit Diagnoses Not on filedocumented in this encounter Home Health Visit - Care Plan Visit Details Visit Type -SN OASIS Start o f Care Discipline -Longterm Problems Problem Description Start Date Status Goals Interventions Homebound Status Disciplines: Longterm, Physical Therapy, Occupational Therapy, Home Health Aide, Medical Social Work Patient's homebound status 06/25/2021 Active 1 goal linked to scheduled/docume nted intervention 1 goal intervention scheduled/documen darrion in this visit Medications Disciplines: Longterm, Physical Therapy, Occupational Therapy Management of home medications 06/25/2021 Active 1 goal linked to scheduled/docume nted intervention 1 goal intervention scheduled/documen darrion in this visit Monitor patient's vital signs every home health visit Disciplines: Longterm, Physical Therapy, Occupational Therapy, Home Health Aide Monitor patient's vital signs every home health visit. 06/25/2021 Active 1 goal linked to scheduled/docume nted intervention 1 goal intervention scheduled/documen darrion in this visit Infection Prevention Disciplines: Longterm, Physical Therapy, Occupational Therapy, Home Health Aide Infection Prevention 06/25/2021 Active 1 goal linked to scheduled/docume nted intervention 2 goal interventions scheduled/documen darrion in this visit Standardized Guidelines Disciplines: Longterm, Physical Therapy, Occupational Therapy, Home Health Aide, Medical Social Work Standardized Guidelines 06/25/2021 Active 1 goal linked to scheduled/docume nted intervention 1 goal intervention scheduled/documen darrion in this visit [place] Precautions Disciplines: Longterm, Physical Therapy, Occupational Therapy, Home Health Aide, Medical Social Work [place] Precautions 06/25/2021 Active 1 goal linked to scheduled/docume nted intervention Need to Collect Specimen Sample Disciplines: Longterm Need to collect specimen sample 06/25/2021 Active 1 goal linked to scheduled/docume nted intervention 1 problem intervention scheduled/documen darrion in this visit Safety concerns Disciplines: Longterm Safety needs related to infusion administration 06/25/2021 Active - 1 problem intervention scheduled/documen darrion in this visit Learning/Teachin g Needs - IV Therapy Disciplines: Longterm Teaching and learning needs for performing home IV therapy 06/25/2021 Active 1 goal linked to scheduled/docume nted intervention 6 problem interventions scheduled/documen darrion in this visit Knowledge Deficit - Wound Care Disciplines: Longterm, Physical Therapy, Occupational Therapy, Home Health Aide Deficiency of cognitive information related to wound care 06/25/2021 Active 1 goal linked to scheduled/docume nted intervention 1 goal intervention scheduled/documen darrion in this visit Wound Care Disciplines: Longterm, Physical Therapy, Occupational Therapy, Home Health Aide [...] the episode of care Medications Progressing No Measure vital signs during every home health visit during episode of care Description: Home patent counsel to measure vital signs during every home health visit during episode of care. Monitor patient's vital signs every home health visit No Verbalize signs of infection Description: Verbalize signs of infection Infection Prevention Progressing No Understanding of when to notify MD in absence of home care staff Description: Understanding of when to notify MD in absence of home care staff Standardized Guidelines No Demonstrate knowledge of universal precautions Description: Demonstrate knowledge of universal precautions [place] Precautions Progressing No Draw lab specimen as ordered Description: Skilled nurse to perform lab draw or specimen collection as ordered. Skilled Nurse may obtain lab specimens from Geraldine line or peripherally if unable to obtain blood from line. Skilled nurse to flush line with 10 mL NS prior to blood draw and withdraw 5-10 mL of blood for waste, obtain blood sample, flush with 20 mL of NS and appropriate Heparin dose specific for IV access. Need to Collect Specimen Sample Progressing No Safely perform IV administration Description: [...] up to date medication list with patient Problem:Medications Goal:Understand and follow medication therapy Completed Pt given med mechanical planner, sn set up meds. Pt and sister verb understanding will teach pt how to fill med mechanical planner. Monitor Vital Signs Description: Monitor blood [...] Problem:Infection Prevention Goal:Verbalize signs of infection Completed Educate Family on Infection Prevention Description: Instructed family on signs and symptoms of infection IE: fever, odor, change in color, increased amount of drainage, purulent drainage, warmth. Problem:Infection Prevention Goal:Verbalize signs of infection Completed Instructed how to clean end cap to prevent infection. Sister demonstrated cleaning cap correctly before flush and between all flush and medication administration. Home Care Staff Absence Description: In absence of Home Care staff the patient/caregiver should call home care 24 hour non emergency # for questions or concerns that is on the front of homecare folder and to call 911 for emergencies. Problem:Standardized Guidelines Goal:Understanding of when to notify MD in absence of home care staff Completed Pt and sister verb understanding to call home care 24 hour non emergency # for questions or concerns that is on the front of homecare folder and to call 911 for emergencies. Lab draw Description: Labs: weekly CBC with Diff and CMP starting 11.3 or 11.4.2020. Fax results to [facility] infusion at [phone] and [phone]. DX code: J86.9. Ordering dr: Dr Susy Carrasquillo MD. Problem:Need to Collect Specimen Sample Completed Via aseptic technique labs drawn from picc. Flushed with 10 cc of ns, 6cc of blood discard, labs drawn, flushed with 20 cc of ns then 5ml of heparin. Pt tolerated well. [facility] [employer] picked up Instruct on IV complications Description: Instruct patient/caregiver on how to manage breaks in line, signs/symptoms of complications, who to contact for complications and how to contact the nurse, MD and infusion service Problem:Safety concerns Completed Instructed to notify dr or c if has redness, swelling, drainage, pain to central line site, right shoulder, right neck, right arm pain. Pt and sister verb understanding. Instruct on IV supplies Description: Instruct patient/caregiver in how to gather supplies, how to restock IV supplies in the home, prepare supplies, administer IV medication and disconnect IV medication, inspecting solution and supplies before infusing, and waste disposal. Problem:Learning/Teac gaetano Needs - IV Therapy Completed Instructed on what supplies are needed for iv infusion, such as saline, heparin, iv med, etoh wipes and green covers for end caps. Pt and sister verb understanding and demonstrated correctly with infusion. Both verb understanding to call 24 hour # if has issues with supplies. Instruct Infection Prevention Description: Instruct patient/caregiver in strategies to prevent infection:frequent/pro per hand-washing techniques, [place] precautions, Standard precautions, avoid crowds and persons with known infections, staying current with immunizations, s/s of infection, use of incentive spirometer, use of antibiotics and encourage adequate diet and fluid intake. Instruct patient/caregiver on how to recognize signs and symptoms of infection and when to notify nurse and/or physician. Problem:Learning/Teac gaetano Needs - IV Therapy Completed Instructed pt and sister on universal precautions and Covid 19 precautions. Pt and sister verb understanding to wear a mask if tolerated when out in public or with visitors in home, wash hands for 15-30 seconds with soap and water or use hand seasonal clerk before and after adls including before iv therapy and wound care or if becomes soiled, do not be around any one with an active infection, social distance 6 feet. IV Administration Description: Skilled Nurse to instruct [...] Reason for Therapy: .Pyothorax without fistula, J86.9. Problem:Learning/Teac gaetano Needs - IV Therapy Completed Sister demonstrated giving iv medication correctly using aseptic technique. Pt and sister verb understanding of written instruction given by pharmacy on SASH method. Both verb understanding that purple lumen is plugged and not to flush. Dressing change Description: Skilled Nurse to instruct [...] and PRN. Type of line: central line Problem:Learning/Teac gaetano Needs - IV Therapy Completed Via sterile technique dressing and stat lock removed to right neck central line. Via sterile technique site cleaned with chloraprep swab and skin prep, both allowed to dry, stat lock applied, transparent dressing appied, end caps changed on both lumens. Pt tolerated well. IV Access Care/Maintenance Description: Skilled Nurse to [...] of each line upon completion of infusion/flushes. Problem:Learning/Teac gaetano Needs - IV Therapy Completed Pt and sister verb understanding that sn will change dressing to central line weekly and to notify [facility] if issues with dressing such as comes off. Pt and sister verb understanding. Instruct on IV flush Description: Instruct patient/caregiver in how to perform flushing of IV line according to MD orders or protocol. Problem:Learning/Teac gaetano Needs - IV Therapy Completed Sister demonstrated using aseptic technique flushing central line with saline and heparin correctly. Instruct family on wound care Description: Instruct patient/caregiver on wound care per MD orders per Wound Education Booklet, may include written directions and or photos for patient/caregiver education. Problem:Knowledge Deficit - Wound Care Goal:Knowledgeable on Woundcare Completed Instructed to clean surgical site and old chest tube sites daily with soap and water and keep dry. Pt and daugther verb understanding. Skilled assessment wound Description: Full wound assessment including measurement weekly. Wound assessment each visit Problem:Wound Care Goal:Progression towards healing Completed Wound Photo Description: Take and transmit wound photo. Problem:Wound Care Goal:Progression towards healing Completed documented in this encounter Home Health Visit - Actions and Narratives Narratives Select Data Recommendations: M1028 - Comorbidities and Co-existing Conditions ? Check all that apply See OASIS Guidance Manual for a complete list of relevant ICD-10 codes Documented Answer: Recommendation: 1 - Active Diagnoses - PVD or PAD; 2 - Diabetes Mellitus Comments: Patient has diabetes with PVD. M1342 - Status of Most Problematic Surgical Wound that is Observable Documented Answer: 2 - Early/partial granulation Recommendation: 0 - Newly epithelialized Reason: Surgical incisions healing by primary intention (completely closed with no openings) can only be newly epithelialized or not healing. It takes 30 days for re-epithelialization to be complete and become a scar. Comments: Old chest tube wounds are closed with sutures. M2020 - Management of Oral Medications: Patient's current ability to prepare and take all oral medications reliably and safely, including administration of the correct dosage at the appropriate times/intervals. Excludes injectable and IV medications. (NOTE: This refers to ability, not compliance or willingness.) Documented Answer: 2 - Able to take medication(s) at the correct times if given reminders by another person at the appropriate times. Recommendation: 3 - Unable to take medication unless administered by another person. Comments: Clinical documentation reflects a MAHC-10 score greater than or equal to 4- patient is at risk for falls. For the purposes of this OASIS item, assistance includes verbal cuing and/or supervision. Siddharth Kaplan, 07/03/2021, DPO documented in this encounter Care Teams Generating Plant Superintendent Relationship Specialty Start Date End Date Ross Espinosa MD [address] [place] [address] PCP - General 06/11/21 03/02/22 documented as of this encounter
--- OUTSIDE RECORDS SUMMARY | 2024-09-12 15:46 | XMS_ITS | Encounter Summary ---
Author Organization [facility] Home Care Servic es Address [address] [place] [address] Phone Care Team Providers Care Aviation All Source Intelligence Name Role Phone Ross Espinosa MD Primary Care Provider [phone] [phone] Encounter Details Date Type Department Care Team (Late st Contact Info) Description 06/24/2021 Plan of Care Documentation [address] [place] [address] Social History Tobacco Use Types Packs/Day Years Used Date Smoking Tobacco: Former Cigarettes Q uit: 08/22/2009 Smokeless Tobacco: Never Sex and Gender Information Value Date Recorded Sex Assigned at Not on file Legal Sex Male 1:43 PM CDT Gender Identity Male 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
--- OUTSIDE RECORDS SUMMARY | 2024-09-12 15:46 | XMS_ITS | Encounter Summary ---
Author Organization [facility] Home Care Servic es Address [address] [place] [address] Phone Care Team Providers Care Instructional Technology Specialist Name Role Phone Ross Espinosa MD Primary Care Provider [phone] [phone] Reason for Visit * Auth/Cert Specialty Diagnoses / Procedures Referred By Jovany t Referred To Contact Referral ID Status Reason Start Date Expiration Date Visits Re quested Visits Authorized [id number] 1 1 Encounter Details Date Type Department Care Team (Late st Contact Info) Description 06/25/2021 Home Care Visit [facility] Home Health [address] [address] [address] [place] [address] Giuliana Rivera RN TELEPHONE ENCOUNTER Social History Tobacco Use Types Packs/Day Years Used Date Smoking Tobacco: Former Cigarettes Q uit: 08/22/2009 Smokeless Tobacco: Never Sex and Gender Information Value Date Recorded Sex Assigned at Not on file Legal Sex Male 1:43 PM CDT Gender Identity Male 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
--- OUTSIDE RECORDS SUMMARY | 2024-09-12 15:46 | XMS_ITS | Encounter Summary ---
Author Organization [facility] Home Care Servic es Address [address] [place] [address] Phone Care Team Providers Care Bridge Expert Name Role Phone Ross Espinosa MD Primary Care Provider [phone] [phone] Reason for Visit * Auth/Cert Specialty Diagnoses / Procedures Referred By Jovany t Referred To Contact Referral ID Status Reason Start Date Expiration Date Visits Re quested Visits Authorized [id number] 1 1 Encounter Details Date Type Department Care Team (Late st Contact Info) Description 06/24/2021 Home Care Visit [facility] Home Health - [address] [place] [address] Giuliana Rivera RN SBAR-START OF CARE/RESUMPTION Social History Tobacco Use Types Packs/Day Years Used Date Smoking Tobacco: Former Cigarettes Q uit: 08/22/2009 Smokeless Tobacco: Never Sex and Gender Information Value Date Recorded Sex Assigned at Not on file Legal Sex Male 1:43 PM CDT Gender Identity Male 08/12/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
--- OUTSIDE RECORDS SUMMARY | 2024-09-12 15:46 | XMS_ITS | Encounter Summary ---
Author Organization [facility] Address [address] [place] [address] Phone Care Team Providers Care Montessori Preschool Teacher Name Role Phone Ross Espinosa MD Primary Care Provider [phone] [phone] Encounter Details Date Type Department Care Team (Late st Contact Info) Description 06/29/2021 11:00 AM SOLID PROPELLANT PROCESSOR Telemedicine [facility] Surgery [address] [place] [id number] Empyema (CMS/HCC) (HCC) (Primary Dx) Social History Tobacco Use Types Packs/Day Years Used Date Smoking Tobacco: Former Cigarettes Q uit: 08/22/2009 Smokeless Tobacco: Never Sex and Gender Information Value Date Recorded Sex Assigned at Not on file Legal Sex Male 1:43 PM CDT Gender Identity Male 08/12/2022 2:14 PM SOLID PROPELLANT PROCESSOR Sexual Orientation Not on file documented as of this encounter Last Filed Vital Signs Vital Sign Reading Time Taken Comments Blood Pressure - - Pulse - - Temperature - - Respiratory Rate - - Oxygen Saturation - - Inhaled Oxygen Concentration - - Weight - - Height 172.7 cm (5' 8) 06/29/2021 7:44 AM SOLID PROPELLANT PROCESSOR Body Mass Index - - documented in this encounter Progress Notes * Ella Ellis NP - 06/29/2021 11:00 AM CST 06/29/2021 Ross Espinosa MD Theodore Lewis [address] Espinosa: As you know, Freddy Sergio had surgery with Dr. Lujan on 06/12/2021. I spoke with Freddydenise Hill over the phone. We discussed: D/C Date: 06/23/2021. Discharged from: [facility] Issues since Discharge: No issues. New Medications: Oxycodone 5 mg & cefTRIAXone IV and Doxycyclin PO Received all Discharge medications: Yes, able to obtain all medications. Are you tolerating the diet plan and having regular bowel movements: Yes, no issues. Avoiding sodium. Reports diarrhea. He was having diarrhea in hospital. Attributes to antibiotics. Reports 3-4 loose stools per day. How are you Tolerating Pain: Yes, he is trying to reduce the oxycodone. Current pain level 3/10 pain scale. How is your Breathing: Patient reports breathing has gotten considerably better. How are your Incisions: No issues with his incisions. Signs of infections: None Issues with Discharge Planning/Do you have help at home/Home Health: [facility] He also has home health PT and OT. Reviewed next appointment: July 13, 2021 at 9 am, however, patient needs to reschedule for a later morning appointment. I will have front office give him a call. Do you know what number to call if anything changes before your next appointment: No, he did not have our number. I provided him with main office number and my office number to call with questions orconcerns. Was pathology discussed: No pathology collected. Any questions or concerns: Patient wants to know who will remove kumari catheter. I advised to call PCP to get referral to urology. Discharge instructions indicate he was to see PCP for a sore on his penis. Patient states he needs to call PCP to be seen. He will ask about Kumari at that time. Best personal regards, ALYSSA Jackson- Nurse practitioner for Dr. Benny Lujan D PROPELLANT PROCESSOR documented in this encounter Plan of Treatment Not on file documented as of this encounter Visit Diagnoses Diagnosis Empyema (CMS/HCC) (HCC)- Primary documented in this encounter Care Teams Montessori Preschool Teacher Relationship Specialty Start Date End Date Ross Espinosa MD [address] [place] [address] PCP - General 06/11/21 03/02/22 documented as of this encounter
--- OUTSIDE RECORDS SUMMARY | 2024-09-12 15:46 | XMS_ITS | Encounter Summary ---
Author Organization [facility] Home Care Servic es Address [address] [place] [address] Phone Care Team Providers Care Director Translation Name Role Phone Ross Espinosa MD Primary Care Provider [phone] Reason for Visit * Auth/Cert Specialty Diagnoses / Procedures Referred By Jovany t Referred To Contact Referral ID Status Reason Start Date Expiration Date Visits Re quested Visits Authorized [id number] 1 1 Encounter Details Date Type Department Care Team (Late st Contact Info) Description 06/24/2021 Home Care Visit [facility] Home Health [address] [address] [address] [place] [address] Giuliana Rivera RN TRAVEL SCREENING CASE COMMUNICATION Social History Tobacco Use Types Packs/Day Years Used Date Smoking Tobacco: Former Cigarettes Q uit: 08/22/2009 Smokeless Tobacco: Never Sex and Gender Information Value Date Recorded Sex Assigned at Not on file Legal Sex Male 1:43 PM CDT Gender Identity Male 08/12/2022 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
--- OUTSIDE RECORDS SUMMARY | 2024-09-12 15:46 | XMS_ITS | Encounter Summary ---
Author Organization [facility] Address [address] [place] [address] Phone Care Team Providers Care Dry Cleaner Helper Name Role Phone Ross Espinosa MD Primary Care Provider [phone] Reason for Referral * MRI/CAT/PET Scan (Routine) - Closed Specialty Diagnoses / Procedures Referred By Jovany carver Referred To Contact Radiology Diagnoses Empyema (CMS/HCC) (HCC) Procedures CT chest without contrast Malini Fernandez MD Phone: tel: fax: [address] [address] Referral ID Status Reason Start Date Expiration Date Visits Re quested Visits Authorized [id number] Closed 06/23/2021 07/23/2022 1 1 Encounter Details Date Type Department Care Team (Late st Contact Info) Description 06/23/2021 Orders Only [facility] Infectious Diseases [address] [place] [id number] Shanice George Empyema (CMS/HCC) (HCC) (Primary Dx) Social History Tobacco Use Types Packs/Day Years Used Date Smoking Tobacco: Former Cigarettes Q uit: 08/22/2009 Smokeless Tobacco: Never Sex and Gender Information Value Date Recorded Sex Assigned at Not on file Legal Sex Male 1:43 PM CDT Gender Identity Male 08/12/2022 2:14 PM 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 ??Interval changes of thoracotomy with small [...] Gaviota Gallo M.D. Narrative 07/12/2021 1:07 PM TOBACCO CLASSER EXAMINATION: ??Computed tomography of the chest without [...] posterior 7th rib. No suspicious osseous lesions. Malini Carrasquillo MD IMG CT PROC EDURES Final Result documented in this encounter Visit Diagnoses Diagnosis Empyema (CMS/HCC) (HCC)- Primary Empyema (CMS/HCC) (HCC) documented in this encounter Care Teams Dry Cleaner Helper Relationship Specialty Start Date End Date Ross Espinosa MD [address] [place] [address] PCP - General 06/11/21 03/02/22 documented as of this encounter
--- OUTSIDE RECORDS SUMMARY | 2024-09-12 15:47 | XMS_ITS | Encounter Summary ---
Author Organization [facility] Healthcare Address [address] [place] [address] Care Team Providers Care Immigration Manager Name Role Phone Unknown, Notinfile Primary Care Provider Ross Tapia MD Primary Care Provider [phone] Encounter Details Date Type Department Care Team (Latest Contact Info) Description 06/10/2021 8:39 PM CDT - 06/23/2021 1:06 PM CDT Hospital Encounter [address] [id number] Benny Carpenter MD [address] [place], [place] [id number] Empyema lung (CMS/HCC) (HCC) (Primary Dx); Diagnosis unknown; Empyema (CMS/HCC) (HCC) Discharge Disposition: Discharge to home, home health skilled care Social History Tobacco Use Types Packs/Day Years Used Date Smoking Tobacco: Former Cigarettes Q uit: 08/22/2009 Smokeless Tobacco: Never Sex and Gender Information Value Date Recorded Sex Assigned at Not on file Legal Sex Male 1:43 PM CDT Gender Identity Male 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 Sexual Orientation Not on file documented as of this encounter Last Filed Vital Signs Vital Sign Reading Time Taken Comments Blood Pressure 162/75 06/23/2021 8:12 AM CDT Pulse 94 06/23/2021 8:12 AM CDT Temperature 36.5 ??C (97.7 ??F) 06/23/2021 8:12 AM CD T Respiratory Rate 18 06/23/2021 8:12 AM CDT Oxygen Saturation 98% 06/23/2021 8:12 AM CDT Inhaled Oxygen Concentration - - Weight 94.6 kg (208 lb 8 oz) 06/10/2021 8:51 PM CDT Height 172.7 cm (5' 8) 06/10/2021 8:51 PM CDT Body Mass Index 31.7 06/10/2021 8:51 PM CDT documented in this encounter Discharge Diagnoses Diagnosis Pyothorax without fistula (CMS/HCC) (HCC) - PYOTHORAX WITHOUT FISTULA Empyema without mention of fistula Pleural effusion, not elsewhere classified - PLEURAL EFFUSION, NOT ELSEWHERE CLASSIFIED Chronic respiratory failure, unspecified whether with hypoxia or hypercapnia (HCC) - CHRONIC RESPIRATORY FAILURE, UNSPECIFIED WHETHER WITH HYPOXIA OR HYPERCAPNIA Acute kidney failure, unspecified (HCC) - ACUTE KIDNEY FAILURE, UNSPECIFIED Acute kidney failure, unspecified Chronic kidney disease, stage 4 (severe) (HCC) - CHRONIC KIDNEY DISEASE, STAGE 4 (SEVERE) Type 2 diabetes mellitus with diabetic chronic kidney disease (HCC) - TYPE 2 DIABETES MELLITUS WITH DIABETIC CHRONIC KIDNEY DISEASE Anemia in chronic kidney disease (CODE) - ANEMIA IN CHRONIC KIDNEY DISEASE (MANIFESTATION) Type 2 diabetes mellitus with diabetic peripheral angiopathy without gangrene (HCC) - TYPE 2 DIABETES MELLITUS WITH DIABETIC PERIPHERAL ANGIOPATHY WITHOUT GANGRENE Hyperkalemia - HYPERKALEMIA Hyperpotassemia Obstructive sleep apnea (adult) (pediatric) - OBSTRUCTIVE SLEEP APNEA (ADULT) (PEDIATRIC) Hypertensive chronic kidney disease with stage 1 through stage 4 chronic kidney disease, or unspecified chronic kidney disease - HYPERTENSIVE CHRONIC KIDNEY DISEASE WITH STAGE 1 THROUGH STAGE 4 CHRONIC KIDNEY DISEASE, OR UNSPECIF Atrioventricular block, second degree - ATRIOVENTRICULAR BLOCK, SECOND DEGREE Chronic obstructive pulmonary disease, unspecified (HCC) - CHRONIC OBSTRUCTIVE PULMONARY DISEASE, UNSPECIFIED Chronic fatigue, unspecified - CHRONIC FATIGUE, UNSPECIFIED Adverse effect of other systemic antibiotics, initial encounter - ADVERSE EFFECT OF OTHER SYSTEMIC ANTIBIOTICS, INITIAL ENCOUNTER group home (current) use of anticoagulants - DISTRICT DIRECTOR (CURRENT) USE OF ANTICOAGULANTS Long-term (current) use of anticoagulants watermaster (current) use of antithrombotics/antiplatelets - DISTRICT DIRECTOR (CURRENT) USE OF ANTITHROMBOTICS/ANTIPLATELETS Family history of ischemic heart disease and other diseases of the circulatory system - FAMILY HISTORY OF ISCHEMIC HEART DISEASE AND OTHER DISEASES OF THE CIRCULATORY SYSTEM Family history of asthma and other chronic lower respiratory diseases - FAMILY HISTORY OF ASTHMA AND OTHER CHRONIC LOWER RESPIRATORY DISEASES Family history of diabetes mellitus - FAMILY HISTORY OF DIABETES MELLITUS Personal history of pneumonia (recurrent) - PERSONAL HISTORY OF PNEUMONIA (RECURRENT) Personal history of nicotine dependence - PERSONAL HISTORY OF NICOTINE DEPENDENCE Presence of cardiac pacemaker - PRESENCE OF CARDIAC PACEMAKER Cardiac pacemaker in situ Presence of artificial hip joint, bilateral - PRESENCE OF ARTIFICIAL HIP JOINT, BILATERAL Peripheral vascular angioplasty status - PERIPHERAL VASCULAR ANGIOPLASTY STATUS Gastro-esophageal reflux disease without esophagitis - GASTRO-ESOPHAGEAL REFLUX DISEASE WITHOUT ESOPHAGITIS Unspecified osteoarthritis, unspecified site - UNSPECIFIED OSTEOARTHRITIS, UNSPECIFIED SITE Diarrhea, unspecified - DIARRHEA, UNSPECIFIED Other manager intermediate (current) drug therapy - OTHER HALFWAY (CURRENT) DRUG THERAPY Dorsalgia, unspecified - DORSALGIA, UNSPECIFIED Bradycardia, unspecified - BRADYCARDIA, UNSPECIFIED Retention of urine, unspecified - RETENTION OF URINE, UNSPECIFIED Other malaise - OTHER MALAISE Unspecified place in hospital as the place of occurrence of the external cause - UNSPECIFIED PLACE IN HOSPITAL THE PLACE OF OCCURRENCE OF THE EXTERNAL CAUSE Exposure to other specified factors, initial encounter - EXPOSURE TO OTHER SPECIFIED FACTORS, INITIAL ENCOUNTER documented in this encounter Discharge Summaries * Ajay Emelykenney Valencia, SHASHANK - 06/23/2021 7:55 AM CDT Inpatient Discharge Summary BRIEF OVERVIEW Admitting Provider: Benny López MD Discharge Provider: Benny Carpenter MD Primary Care Physician at Discharge: Ross Espinosa MD [phone] Admission Date: 06/10/2021 Discharge Date: 06/23/2021 Admission Location: [facility] Problems/Diagnoses: Principal Problem: Empyema (CMS/HCC) ([facility]) Active Problems: Cardiac pacemaker in situ PVD (peripheral vascular disease) (CMS/HCC) ([facility]) COPD (chronic obstructive pulmonary disease) (CMS/HCC) ([facility]) CKD (chronic kidney disease) stage 4, GFR 15-29 ml/min (CMS/HCC) (HCC) Hypertension Anemia ALFREDO (acute kidney injury) (CMS/HCC) ([facility]) Resolved Problems: CKD (chronic kidney disease) stage 3, GFR 30-59 ml/min (HCC) Hyperkalemia DETAILS OF HOSPITAL STAY Presenting Problem/History of Present Illness: 70-year-old male with history of COPD, ANDRZEJ, asthma, HTN, AICD, carotid stenosis s/p R CEA, PAD s/p peripheral artery angioplasty with stent placement of LLE who presents as transfer from outside hospital with known left-sided empyema. ?? The patient originally presented to OSH with shortness of breath and left sided chest pain as he had become increasingly short of breath at home. He was started on azithromycin and prednisone taper at the time with no relief. Chest-xray showed left-sided airspace disease and pleural effusion with leukocytosis to 42.4. Chest CT on 06/04 demonstrated multiloculated, possibly malignant, left pleuraleffusion. This was at first managed medically with antibiotic treatment as the patient declined drainage. However, he did not have symptomatic improvement and later opted for drainage. Drained pleural fluid was thick and purulent and sent for testing. The patient was transferred here for further man agement and possible need for surgical intervention. Hospital Course: Patient underwent THORACOTOMY, decortication (Left) Left lower lobe for abscesses and empyema on 06/12/[address] Lujan, and was admitted to Thoracic Surgery after stabilization in the PACU. Plan of care included hemodynamic monitoring, pain management, chest tube management, and physical therapy evaluation and treatment. Hospital course was remarkable for worsening CKD with acute decompensation from vanco toxicity. Renal was consulted and they assisted in his care. He had hyperkalemia and was treated for that as well. He had some urinary retention and the london had to be replaced and he will be sent home with the london and get another void trial in 1 week. His flomax has been increased to 0.8mg po daily. At firsthe was doing poorly with PT but due to his prolonged stay he was able to improve and will go home with family. ID was consulted and they recommended IV antibiotics for a few weeks and those have been arranged. He will F/U in the ID clinic as directed. Chest tube was removed without complication. On the day of discharge, the patient was ambulating with minimal assistance; tolerating PO diet with return of bowel function; surgical incisions were well approximated and the pain was well controlled on oral pain medications. The patient was deemed to be medically stable for discharge from the hospital and was in agreement with the plan to discharge home with family. UA was checked twice and culture growth was insignificant on 06/20 He should F/U with his PMD for a sore on the underside of his penis. He states that this happened once several years ago and he was given an antibiotic and it went away. He will some of his home medications and F/U with PMD to adjust BP medications. He should avoid ASHLIE's due to CKD and hyperkalemia Test Results Pending at Discharge: Pending Labs Order Current Status Type and screen In process Operative Procedures Performed: Procedure(s): THORACOTOMY, decortication Discharge Details Physical Exam at Discharge: Discharge Condition: good Pulse: 95 Resp: 20 BP: 146/79 Temp: 36.6 ??C (97.9 ??F) Weight: 94.6 kg (208 lb 8 oz) Pertinent Exam Findings at Discharge: General: In no acute distress, resting comfortably. Pleasant, cooperative with exam. HEENT: Mucous membranes dry. Neck: Supple, with no lymphadenopathy. CV: Regular rate and rhythm. No murmurs/gallops/rubs. Pulm: Unlabored breathing on room air. Lungs clear to auscultation bilaterally. Abdomen: Abdomen soft, nontender, nondistended without rebound or guarding. LE: Warm, well perfused. Neuro: AAOx4. Grossly intact without obvious deficits. London to BSD bag, Geraldine right neck Discharge Disposition: home Discharge Instructions: See AVS Activity Instructions Discharge Activity: Lifting restrictions -Do NOT lift greater than 5 pounds for 4 weeks. Discharge Activity: Walking -You may walk as tolerated. Diet Instructions Adult Discharge Diet Diet Type: Return to previous diet Other Instructions Ambulatory referral to Home Health Service Line: Home Health and Infusion Primary disciplines requested: [facility] Home Health Services: Strengthening Exercises Therapy to Eval/ Treat Other Comment: post op empyema Infusion Services: IV Antibiotics/Other Medications Physician to follow patient's care (the person listed here will be responsible for signing ongoing orders): Referring Provider Requested Start of Care Date: Within 2 - 3 Days I attest that I or another qualified licensed provider saw the patient 90 days prior to or 30 days post admission and this face to face encounter meets the necessary Home Health requirements. The face to face encounter occurred on (date): 06/22/2021 The encounter with the patient was in whole, or in part, for the following medical condition, whichis the primary reason for home health care. (List medical condition): empyema Clinical findings that support the need for home care: Medical condition requiring skilled assessment/education I certify that my clinical findings support patient's homebound status. Homebound criteria met because: Poor endurance Shortness of breath with minimal exertion Call provider for: increased temperature -Temperature greater than 101 degrees F Call provider for: redness, tenderness, or signs of infection (pain, swelling, redness, odor or green/yellow discharge around incision site) Care Instructions: No tub baths -No tub baths, whirlpools or swimming until your provider says it's ok. Care Instructions: Shower -You may shower Home Infusion: [facility]fusion ([phone]) for home iv antibiotics, group home and physical therapy. Please call the number provided if you have not heard from a nurse with 24 hours of being discharged to home. Discharge Medications: Current Medications TAKE these medications acetaminophen 500 mg capsule Take 2 capsules (1,000 mg total) by mouth every 6 (six) hours * albuterol HFA 90 mcg/actuation inhaler INHALE 2 PUFFS EVERY 4 HOURS BY INHALATION ROUTE NEEDED FOR 30 DAYS. Commonly known as: PROVENTIL HFA,VENTOLIN HFA,PROAIR HFA * albuterol 2.5 mg /3 mL (0.083 %) nebulizer solution INHALE 3 ML 3 TIMES A DAY BY NEBULIZATION ROUTE FOR 30 DAYS. apixaban 2.5 mg tablet Take 2.5 mg by mouth 2 (two) times a day Commonly known as: ELIQUIS atorvastatin 40 mg tablet Take 40 mg by mouth daily Commonly known as: LIPITOR carvediloL 25 mg tablet Take 1.5 tablets by mouth 2 (two) times a day Commonly known as: COREG cefTRIAXone syringe Infuse 20 mL (2,000 mg total) into a venous catheter daily For: empyema Commonly known as: ROCEPHIN cetirizine 10 mg capsule Take by mouth clopidogreL 75 mg tablet Take 75 mg by mouth daily Commonly known as: PLAVIX doxepin 25 mg capsule Take 25 mg by mouth nightly Commonly known as: SINEquan doxycycline monohydrate 100 mg capsule Take 1 capsule (100 mg total) by mouth 2 (two) times a day For: empyema Commonly known as: MONODOX dupilumab syringe Inject 300 mg under the skin every 14 (fourteen) days Commonly known as: DUPIXENT gabapentin 300 mg capsule Take 300 mg by mouth daily as needed Commonly known as: NEURONTIN melatonin 5 mg capsule Take by mouth metroNIDAZOLE 500 mg tablet Take 1 tablet (500 mg total) by mouth 3 (three) times a day For: empyema Commonly known as: FLAGYL multivitamin capsule Take 1 capsule by mouth daily omeprazole 20 mg capsule TAKE 1 CAPSULE BY MOUTH EVERY MORNING BEFORE BREAKFAST Commonly known as: PriLOSEC polyethylene glycol 17 gram packet Take 1 packet (17 g total) by mouth daily For: constipation Commonly known as: MIRALAX Spiriva Respimat 2.5 mcg/actuation inhaler INHALE 2 PUFFS BY MOUTH ONCE DAILY Generic drug: tiotropium bromide tamsulosin 0.4 mg extended release capsule Take 2 capsules (0.8 mg total) by mouth daily with dinner Commonly known as: FLOMAX traMADoL 50 mg tablet Take 50 mg by mouth every 6 (six) hours as needed Commonly known as: ULTRAM * This list has 2 medication(s) that are the same as other medications prescribed for you. Read the directions carefully, and ask your doctor or other care provider to review them with you. Outpatient Follow-Up: Future Appointments Date Time Provider Department Center 07/09/2021 2:20 PM Jacey Holloway NP [facility] Inf Dis 08/12/2021 9:30 AM Josiah Lay MD [facility] Contact Information for Follow-ups [facility] Specialty: Home Health and Hospice [address] [facility] [address] Next Steps: Follow up Questions: Service Line: Home Health and Infusion Primary disciplines requested: [facility] Home Health Services: Strengthening Exercises Therapy to Eval/ Treat Other Comment: post op empyema Infusion Services: IV Antibiotics/Other Medications Physician to follow patient's care (the person listed here will be responsible for signing ongoing orders): Referring Provider Requested Start of Care Date: Within 2 - 3 Days I attest that I or another qualified licensed provider saw the patient 90 days prior to or 30 days post admission and this face to face encounter meets the necessary Home Health requirements. The face to face encounter occurred on (date): 06/22/2021 The encounter with the patient was in whole, or in part, for the following medical condition, whichis the primary reason for home health care. (List medical condition): empyema Clinical findings that support the need for home care: Medical condition requiring skilled assessment/education I certify that my clinical findings support patient's homebound status. Homebound criteria met because: Poor endurance Shortness of breath with minimal exertion Referral Status: Pending Authorization Cosigned by Benny Carpenter MD at 06/26/2021 12:38 PM CDT documented in this encounter Discharge Instructions * Discharge Instructions* Emely Moss NP - 06/22/2021 4:26 PM CDT Images from the original note were not included. -you may go back to the same diet you had before surgery -try to take less narcotic pain medications each day. Eventually wean yourself off the medications entirely. -pain medications cause constipation. You may take over the counter medications to assist in havinga bowel movement if needed. Miralax, magnesium citrate, dulcolax suppositories. Follow package directions. -Stop taking your laxative if you have diarrhea. -do not drink alcohol if you are taking oral pain medications. -no lifting over 5 pounds until F/U. -do not place lotion, creams or antibiotics ointments on the incisions. -the old chest tube site may drain. If it does please apply a dressing over the area. -there may be a stitch at the old CT site. Your primary MD may remove this in 7- 10 days from D/C. Please arrive 30 minutes prior to your appointment time for a CXR. The inpatient nurse practitioner line for questions regarding your care prior to your F/U appointment is [phone] If you have questions/concerns that can not wait until business hours ([id number]) and it is after 6PM, please call the soap drier operator at [phone] and ask for the thoracic surgery resident juvenile correctional officer. If you are short of breath, have chest pain, bleeding or other emergent issues call 911. Medication Recommendations: Dru. Ceftriaxone 2g IV q24h 2. Metronidazole 500mg PO q8h 3. Doxycyline 100mg PO q12h Duration likely 4 weeks, but will need repeat imaging and ID f/u prior to stopping Firm Stop: No - Do not stop before the patient is seen by ID ?? Labs/Frequency to be Monitored: CBC once a week and CMP once a week Imaging Required Before Follow Up: No Follow Up Plan: fax results to [phone], follow up with Dr. Molina/any in 2 weeks , After discharge additional questions can be directed to the clinic at [phone] and Patient has been educated about the risks and benefits of IV antibiotics (OPAT) ?? Leaving the Hospital on IV Antibiotics Infectious Diseases ? Information for Patients and Families: Because of your infection, you must be treated with antibiotics by vein (IV). ?? Timing is important! You should receive antibiotics on a regular schedule and not skip doses. This will give your body enough antibiotic to fight your infection. ?? Finishing is important! You must finish all antibiotics unless told otherwise by your doctor. Taking all of your antibiotics will help get rid of your infection and prevent resistance to antibiotics. ?? What to expect Labs: A nurse will draw your blood about 1-2 times each week. Labs help us monitor your infection and watch out for antibiotic side effects. ?? Telephone calls: You will be receiving lots of phone calls! People who will need to contact you include the infectious disease clinic, home health nurses, home infusion team (antibiotic providers), pharmacists, and doctors. ? Please make sure we have a working phone number for you so you can receive these calls that areimportant for your health ??? Please make sure your voicemail is set up AND has space for us to leave a message (just in casewe miss you!) ?? Catheter and Wound care ? Always wash hands with antibacterial soap and use alcohol-based hand external grinder tender before touching your catheter or changing wound dressings. ??? When drying hands, only use a clean paper towel. ??? Don't forget to scrub the ???hub?? (tip of your catheter)! Do this with an alcohol wipe beforeeach use. Scrub for 30 seconds (minimum) and allow to dry without blowing on it or waving your handacross it. ??? Refer to your home care service's instructions for taking care of your IV line and hooking up your antibiotics. ?? Follow-up Appointment ?? Keeping your follow-up appointment is very important! Below are things that may happen or be decided at your infectious diseases clinic appointment. ? Look at the infection site and IV to look for problems ??? Determine how long you need to be on IV antibiotics ??? Prescribe oral (pill) antibiotics after finishing IV antibiotics if needed ??? Depending on how you are doing, we may order additional blood work or imaging tests to evaluateyour infection ??? Arrange for your IV line to be removed when the IV antibiotics are completed ?? Questions or Concerns? Below are reasons to call the Infectious Diseases Clinic RIGHT AWAY! 1. Watery diarrhea more than 3 times in 24 hours. 2. Nausea, vomiting, and/or belly pain 3. Rash and/or itching 4. Chills 5. Drenching night sweats 6. Fever >100.3 7. Increasing redness and/or drainage from a wound 8. Confusion or personality changes 9. Antibiotic catheter problems. Based on your symptoms, we may be able to help you over the phone or have your home health nurse help you. In some cases, you may need to go to the Emergency Room. ?? Contact Information Infectious Diseases Clinic : Neto Baker [address] [address] or [phone] Toll-free ? Important Information for Healthcare Providers: Antibiotics recommended : ceftriaxone, metronidazole, doxycyline Anticipated stop date for IV antibiotics: to be determined by infectious disease doctor Infectious disease physician saw the patient during hospital admission: Dr. Molina ? Recommended Laboratory Monitoring: [ x ] CBC w/differential and CMP weekly ?? ALL RESULTS SHOULD BE FAXED TO INFECTIOUS DISEASE CLINIC AT: [phone] * Discharge Instr - Other Orders* Elizabeth Mars, RN - 06/22/2021 12:24 PM CDT Home Infusion: [facility] Home [facility]fusion ([phone]) for home iv antibiotics, group home and physical therapy. Please call the number provided if you have not heard from a nurse with 24 hours of being discharged to home. [facility] [place] to provide nursing P [phone] documented in this encounter Medications at Time [...] mg total) by mouth daily as needed tamsulosin (FLOMAX) 0.4 mg extended release capsule [...] into a venous catheter daily 06/23/2021 1 cetirizine 10 mg capsule Take by mouth 4 clopidogreL (PLAVIX) 75 mg tablet Take 1 tablet (75 mg total) by mouth daily 04/17/2021 3 melatonin 5 mg capsule Take by mouth [...] g total) by mouth daily 06/23/2021 2 Spiriva Respimat 2.5 mcg/actuation inhaler INHALE 2 PUFFS BY MOUTH ONCE DAILY 04/21/2021 5 documented as of this encounter Ordered Prescriptions Prescription Sig Dispense Quantity Refills Last Filled Start Date End Date tamsulosin (FLOMAX) 0.4 mg extended release capsule Take 2 capsules (0.8 mg total) by mouth daily with dinner 06/23/2021 acetaminophen 500 mg capsule Take 2 capsules (1,000 mg total) by mouth every 6 (six) hours 30 tablet 06/23/2021 oxyCODONE (ROXICODONE) 5 mg immediate release tabletIndications: Pain Take 1 tablet (5 mg total) by mouth every 4 (four) hours as needed for pain 60 tablet 06/23/2021 2 polyethylene glycol (MIRALAX) 17 gram packetIndications: constipation Take 1 packet (17 g total) by mouth daily 06/23/2021 2 metroNIDAZOLE (FLAGYL) 500 mg tabletIndications: empyema Take 1 tablet (500 mg total) by mouth 3 (three) times a day 90 tablet 1 06/23/2021 2 doxycycline (MONODOX) 100 mg capsuleIndications :empyema Take 1 capsule (100 mg total) by mouth 2 (two) times a day 60 capsule 06/23/2021 1 cefTRIAXone (ROCEPHIN) syringeIndications :empyema Infuse 20 mL (2,000 mg total) into a venous catheter daily 06/23/2021 1 documented in this encounter Discharge Disposition Disposition Code Departure Means Destination Discharge to home, home health skilled senior living CARE NURSING documented in this encounter Progress Notes * Natalie Chow, PT - 06/23/2021 11:39 AM CDT 06/23/21 1139 PT Last Visit PT Missed Visit Reason Patient declined (Declines due to going home today. Reports no questions.) * Mariann Marshall RN - 06/23/2021 9:30 AM CDT 06/23/21 0929 Discharge Summary Chart reviewed For Medical Necessity Does patient have a planned readmission to hospital planned? No Discharge Disposition Home with Home Health (PT/OT/RN);Home with IV Services (RN visits) Equipment/Provider Needs Home Provider Services Needs Identified Home Care Agency Information Home Care Agency Type #1: Home Infusion Home Care Agency Name [facility] Home [facility] Contact Spoken to [facility] Order Faxed to [facility] Discharge Additional Assistance Does the patient need discharge transport arranged? No Post Discharge Care Provider Post Discharge Care Plan DC Summary has been faxed to next level of care provider (see Follow Up Providers) Patient to d/c to home today. Home care needs identified. Patient has family for home support and transportation. Patient to have meds filled by mobile pharmacy. Nurse to instruct on d/c orders. * Emely Moss NP - 06/22/2021 12:13 PM CDT Thoracic Surgery Daily Progress Note ?? Admit: 06/10/2021 8:39 PM Date: June 20, 2021 Length of Stay: 10 Attending: Benny Carpenter* POD:* No surgery date entered * Procedure(s): THORACOTOMY, decortication ? Subjective History: Freddy Hill is a 70-year-old male with history of??COPD, ANDRZEJ, asthma, HTN, AICD, carotid stenosis s/p R CEA, PAD s/p peripheral artery angioplasty with stent placement of LLE who presents as transfer from outside hospital for management of known left-sided empyema. ?? PMH: COPD, ANDRZEJ, asthma, HTN, AICD, carotid stenosis, PAD, arthritis, CKD stage 3 ?? PSH: AICD placement, ventral hernia repair, bilateral hip replacement, carotid endarterectomy, LLE peripheral artery angioplasty with stent placement, tonsillectomy, adenoidectomy Edited by: Valarie Edwards MD at 06/11/2021 6318 ?? Interval History.: Urinary retention with 700 ml s/p straight cath. Will replace london and plan to send home with it. PT states home with HH, Home PT ? Objective Medications: ?? Current Facility-Administered Medications: ??? acetaminophen (TYLENOL) tablet 1,000 mg, 1,000 mg, oral, Q6H Genesis ANDERSON Amanda Leigh, NP, 1,000 mg at 06/19/21 0139 ??? albuterol 2.5 mg/0.5 mL nebulizer solution 2.5 mg, 2.5 mg, nebulization, TID PRN (RT), Talon Resendiz MD, 2.5 mg at 06/15/212251 ??? [Held by Provider] amLODIPine (NORVASC) tablet 10 mg, 10 mg, oral, Daily, Marco A Ward MD, 10 mg at 06/15/21 0900 ??? atorvastatin (LIPITOR) tablet 40 mg, 40 mg, oral, Daily, Marco A Ward MD, 40 mg at 06/18/21 1144 ??? bisacodyl EC (DULCOLAX EC) tablet 10 mg, 10 mg, oral, Daily PRN, Pradeep Palma MD ??? calcium carbonate (TUMS) chewable tablet 500 mg, 200 mg of elemental calcium, oral, Daily PRN, Marco A Ward MD, 500 mg at 06/13/212116 ??? carvediloL (COREG) tablet 6.25 mg, 6.25 mg, oral, BID, Emely Msos NP, 6.25 mg at 06/18/212151 ??? cefTRIAXone (ROCEPHIN) 2,000 mg/20 mL in sterile water (premix) 2,000 mg, 2,000 mg, intravenous, Q24H JUSTIN, Emely Moss NP, 2,000 mg at 06/18/21 0935 ??? [Held by Provider] cloNIDine (CATAPRES) tablet 0.1 mg, 0.1 mg, oral, BID, Marco A Ward MD, 0.1 mg at 06/15/21 0900 ??? doxepin (SINEquan) capsule 25 mg, 25 mg, oral, Nightly, Marco A Ward MD, 25 mg at 06/18/212151 ??? enoxaparin (LOVENOX) syringe 30 mg, 30 mg, subcutaneous, Daily-2100, Pradeep Palma MD, 30 mg at 06/18/212151 ??? guaiFENesin (ROBITUSSIN) 20 mg/mL oral liquid 200 mg, 200 mg, oral, QID, Milagro Toth FREIGHT CLERK, 200 mg at 06/18/212151 ??? HYDROmorphone (DILAUDID) injection 0.2 mg, 0.2 mg, intravenous, Q4H PRN, Samra Hurtado NP ??? lactulose 0.67 gram/mL oral solution 20 g, 20 g, oral, TID, Samra Hurtado NP ??? lidocaine (LIDODERM) 5 % patch 2 patch, 2 patch, transdermal, Daily, Valarie Edwards MD, Medication Removed at 06/18/212157 ??? linezolid (ZYVOX) tablet 600 mg, 600 mg, oral, BID, Emely Moss NP, 600 mg at 06/18/212151 ??? magnesium sulfate 2 g/50 mL in water (premix) 2 g, 2 g, intravenous, Once, Emely Moss NP ??? metroNIDAZOLE (FLAGYL) tablet 500 mg, 500 mg, oral, TID, Emely Moss NP, 500 mg at 06/18/212151 ??? ondansetron ODT (ZOFRAN-ODT) disintegrating tablet 4 mg, 4 mg, oral, Q6H PRN, 4 mg at 06/18/21 0957 OR [DISCONTINUED] ondansetron (ZOFRAN) injection 4 mg, 4 mg, intravenous, Q6H PRN, Yamilet Faustin MD ??? oxyCODONE (ROXICODONE) tablet 5 mg, 5 mg, oral, Q4H PRN, Valarie Edwards MD, 5 mg at 06/19/21 0537 ??? pantoprazole DR (PROTONIX) extended release tablet 40 mg, 40 mg, oral, Daily, Pradeep Palma MD, 40 mg at 06/18/21 0816 ??? polyethylene glycol (MIRALAX) packet 17 g, 17 g, oral, Daily, Samra Hurtado NP, 17 g at 06/17/21 0954 ??? potassium chloride ER (KLOR-CON) extended release tablet 20 mEq, 20 mEq, oral, Once, Emely Moss NP ??? ramelteon (ROZEREM) tablet 8 mg, 8 mg, oral, Nightly PRN, Marco A Ward MD, 8 mg at 06/13/210 ??? senna-docusate (PERICOLACE) 8.6-50 mg per tablet 1 tablet, 1 tablet, oral, BID, Samra Hurtado NP, 1 tablet at 06/17/21 0953 ??? sodium chloride 0.9% flush 0.5-20 mL, 0.5-20 mL, intra-catheter, Q8H JUSTINLouie Connor Patrick, MD, 10 mL at 06/18/21 0647 ??? sodium chloride 0.9% flush 0.5-20 mL, 0.5-20 mL, intra-catheter, PRN, Pradeep Palma MD, 10 mL at 06/11/21 0810 ??? sodium chloride 0.9% flush 0.5-20 mL, 0.5-20 mL, intra-catheter, Q8H JUSTIN, Pradeep Palma MD, 10 mL at 06/17/21 2039 ??? sodium chloride 0.9% flush 0.5-20 mL, 0.5-20 mL, intra-catheter, PRN, Pradeep Palma MD, 10 mL at 06/18/21 1337 ??? tamsulosin (FLOMAX) extended release capsule 0.4 mg, 0.4 mg, oral, Daily with dinner, Pradeep Palma MD, 0.4 mg at 06/18/21 0816 ??? umeclidinium (INCRUSE ELLIPTA) 62.5 mcg/actuation inhaler 62.5 mcg, 1 puff, inhalation, Daily, Juanita Burks MD, 62.5 mcg at 06/18/21 1144 ?? Diet: ? Dietary Orders (From admission, onward) ? Start Ordered ?? 06/15/21 1229 ?? Adult Diet Regular, Restricted; Renal Diet effective now Question Answer Comment ([facility]) Diet type Regular ?? ([facility]) Diet type Restricted ?? Renal: Renal ?? 06/15/21 1228 ? Is&Os: I/O last 2 completed shifts: In: - Out: 600 [Urine:600] No intake/output data recorded. ?? Physical Exam: 24hr Min/Max: Temp Min: 36.5 ??C (97.7 ??F) Max: 36.9 ??C (98.4 ??F) Pulse Min: 85 Max: 97 BP Min: 118/59 Max: 156/61 Resp Min: 18 Max: 20 SpO2 Min: 88 % Max: 98 % Vitals: ?? 06/19/21 0357 BP: 145/72 Pulse: 86 Resp: 18 Temp: 36.6 ??C (97.9 ??F) SpO2: 96% ?? Constitutional: alert and oriented x3 and no acute distress HEENT: Pupils equal, EOMs grossly normal, mucous membranes moist Respiratory: respirations even and unlabored on 2L NC.CV: RRR Abdomen: soft, non-distended Skin: warm, well perfused and extremities non-edematous ?? Active and Removed ?? None ? Labs/Imaging: Recent Labs Lab Units 06/18/21 0941 06/17/21 1012 06/16/21 2315 WBC K/cumm 12.5* 13.5* 13.7* HEMOGLOBIN g/dL 8.5* 8.1* 6.8* HEMATOCRIT % 26.9* 25.4* 22.0* PLATELETS K/cumm 184 174 153 ? Recent Labs Lab Units 06/19/21 0148 06/18/21 0941 06/16/21 2223 SODIUM mmol/L 142 136 138 POTASSIUM PLASMA mmol/L 3.2* 3.3 3.8 CHLORIDE mmol/L 105 100 102 CO2 mmol/L 28 27 29 BUN SERUM mg/dL 39* 45* 54* CREATININE mg/dL 3.05* 3.30* 3.53* GLUCOSE mg/dL 88 120 123 CALCIUM mg/dL 7.8* 8.2* 8.2* ? XR Chest 1 View ?? Result Date: 06/11/2021 The current study is compared with the prior radiograph dated CT dated 06/08/2021. Left subclavian atrioventricular pacemaker is noted, the ventricular lead is near the tricuspid valve. Loculated left effusion/empyema appears similar in configuration to CT. Associated patchy opacities may represent atelectasis or pneumonia. The right lung is clear with no pleural effusion. There is no pneumothorax. Cardiomediastinal silhouette is normal and unchanged. Dictated by: Ranulfo Tariq M.D. The radiology attending physician has personally reviewed this study, and had reviewed and/or editedthis written report and agrees with it. Electronically signed by: Saniya Tapia M.D. ?? [place] Outside Reference ?? Result Date: 06/10/2021 These images are for Reference purposes only and have not been reviewed by [facility]. There will be no report generated by a [facility] Radiologist. ?? [place] Outside Reference ?? Result Date: 06/10/2021 These images are for Reference purposes only and have not been reviewed by [facility]. There will be no report generated by a [facility] Radiologist. ?? XR Outside Reference ?? Result Date: 06/10/2021 These images are for Reference purposes only and have not been reviewed by [facility]. There will be no report generated by a [facility] Radiologist. ?? XR Outside Reference ?? Result Date: 06/10/2021 These images are for Reference purposes only and have not been reviewed by [facility]. There will be no report generated by a [facility] Radiologist. ?? CT Body Outside Consult ?? Result Date: 06/11/2021 1. Moderate left-sided pleural effusion in keeping with known empyema. Left lower lobe opacity could represent atelectasis or pneumonia. Lack of intravenous contrast limits evaluation for pleural andlung enhancement. 2. Aortic arch penetrating atherosclerotic ulcer. [...] images may or may not represent the [place] source data set and thus may contain changes that may lower the accuracy of this second-opinion interpretation. Electronically signed by: Bartolome Kathleen M.D. , PHD ?? CT Body Outside Reference ?? Result Date: 06/10/2021 These images are for Reference purposes only and have not been reviewed by [facility]. There will be no report generated by a [facility] Radiologist. ?? [place] Outside Reference ?? Result Date: 06/10/2021 These images are for Reference purposes only and have not been reviewed by [facility]. There will be no report generated by a [facility] Radiologist. ? Assessment/Plan ?? ALFREDO (acute kidney injury) ([facility]) ([facility]) Assessment & Plan -per renal: likely multifactorial. Patient still making adequate urine. -renally dose medications -continue to monitor renal function -trending down -plan to replace london and send home with it -F/U with urology Anemia Assessment & Plan - monitor - possibly R/T empyema Hypertension Assessment & Plan Has been normotensive while inpatient - increase BB - Lisinopril and HCTZ on hold CKD (chronic kidney disease) stage 4, GFR 15-29 ml/min ([facility]) ([facility]) Assessment & Plan At time of admission creat baseline 2.5 - renal following - Avoid other nephrotoxic medications - Monitor labs COPD (chronic obstructive pulmonary disease) ([facility]) ([facility]) Assessment & Plan Wears 2L O2 overnight, has ANDRZEJ - continue home inhaler PVD (peripheral vascular disease) ([facility]) ([facility]) Assessment & Plan S/p peripheral artery angioplasty with stent placement x3. Takes Plavix at home. According to OSH records, last dose was 06/03. - hold Plavix Cardiac pacemaker in situ Assessment & Plan 2/2 symptomatic bradycardia, second degree AV block - on Eliquis (last dose 06/06), unknown why? - hold AC * Empyema ([facility]) ([facility]) Assessment & Plan Empyema without systemic manifestations WBC: 13.5, afebrile. OSH CT shows small to moderate loculated pleural effusion. - s/p L thoracotomy and decortication on 06/12 - he has progressed well and will be going home in AM - IV antibiotics Emely Moss [facility]- Thoracic Surgery [facility] ? For patients or family members viewing this note through [employer] access programs: This note was written as a communication tool between healthcare providers and may contain technical language, terminology and abbreviations that is difficult to interpret without advanced medical training. ??If you have questions or concerns regarding what is written in this note, please request to speak with the primary medical team taking care of you or your family member or call your PCP for clarification. Please do not call the cell or pager numbers listed in this note, as the provider they are associated with may no longer be involved in your care. Cosigned by Benny Carpenter MD at 06/26/2021 12:38 PM CDT * Kobe Haines - 06/22/2021 11:44 AM CDT Physical Therapy Progress Note NOTE: This is a summary note of the emery components of the treatment session. For full details, review chart for all flowsheets documented on by this physical therapy clinician on this date. Vital signs documented in vital signs flowsheet. Care plan progress documented in Care Plan Activity. For questions, please review the treatment team and contact the PT or HR ADMINISTRATIVE ASSISTANT currently assigned to this patient. If a physical therapy clinician is not assigned to this patient, please call [phone]. 06/22/21 1144 PT Last Visit Session Type Treatment PT Received On 06/22/21 Safe Environment Arm Band Checked;Call Light within Reach;Notified RN;Patient found sitting in Chair;Overbed Table within Reach (Pt left in chair with call light and table within reach) Subjective Agreeable to Therapy Family/Caregiver Present Yes (Sister) Precautions Precautions Fall risk;ANDRZEJ Activity Tolerance Activity Tolerance Comments Margot: medium Pain Assessment Pain Assessment 0-10 Pain Score 3 Pain Type Surgical pain Pain Location Incision Cognition Arousal/Alertness Alert;Appropriate responses to stimuli Orientation Oriented X4 (person, place, time, situation) Following Commands Follows all commands and directions without difficulty Compliance/Behavior Easy to engage Balance Balance Yes Static Sitting Balance Static Sitting-Balance Support No upper extremity supported;Feet supported Static Sitting-Sitting Surface Chair Static Sitting-Level of Assistance Distant supervision Static Sitting-Comment/# of Minutes Supervision for safety Static Standing Balance Static Standing-Balance Support Bilateral upper extremity supported (BUE on WW) Static Standing-Standing Surface Floor Static Standing-Level of Assistance Distant supervision Static Standing-Comment/# of Minutes Supervision for safety Equipment Use Equipment Use Comments No gait belt used Bed Mobility Bed Mobility No Transfers Transfer Yes Transfer 1 Transfer From 1 Sit Transfer Type 1 To and from Transfer to 1 Stand Technique 1 Sit to stand;Stand to sit Transfer Device 1 Wheeled walker Transfer Level of Assistance 1 Standby Assist Trials/Comments 1 SBA for safety Ambulation Ambulation Yes Ambulation 1 Distance (ft) 1 180 Surface 1 Level tile Device 1 Wheeled walker Other Apparatus 1 Wheelchair follow Assistance 1 Standby Assist Gait: Requires verbal cues to 1 Prevent bumping into environmental barriers (corea/furniture);Pace activity;Utilize pursed lip breathing Quality of Gait 1 Decreased carmella; decreased step length Ambulation Comments 1 1 standing rest break and 1 seated rest break 2/2 dyspnea Stairs Stairs Yes Stairs Number of Stairs 1 4 Rails 1 Left Device 1 No device Assistance 1 Standby Assist Basic Mobility - 6 Click How much difficulty does the patient have: Turning over in bed 4 How much difficulty does the patient currently have: Sitting down and standing up from a chair witharms? 3 How much difficulty does the patient have: Moving from lying on back to sitting on the side of the bed? 4 How much difficulty does the patient have: Moving to and from a bed to a chair including wheelchair? 3 How much help does the patient currently need: Walk in hospital room? 3 How much help from another person does the patient currently need: Climbing 3-5 steps with a railing? 3 Total 6 Click Score (range 6-24) 20 Score Interpretation 43.99 Assessment Prognosis Good Problem List Gait deviations;Decreased strength;Decreased endurance;Pain;Decreased mobility Plan Plan If this is the last note, consider this the discharge summary;Continue with current plan Recommendation/Plan PT Recommendation/Plan Home with family;Home with 24 hour supervision;Home Health PT PT Frequency 5-7x/wk Progress Progressing toward goals PT - Next Appointment 06/23/21 Multi-Disciplinary Problems (from Physical Therapy) Active Problems Problem: Mobility Start Date: 06/14/21 Goal Start Date Expected End Date End Date STG - Patient will ambulate 06/14/21 06/28/21 -- Goal Details: 200', AAD, SBA Problem: Transfers Start Date: 06/14/21 Goal Start Date Expected End Date End Date STG - Patient to transfer to and from sit to supine 06/14/21 06/28/21 -- Goal Details: SBA Goal Start Date Expected End Date End Date STG - Patient will transfer sit to and from stand 06/14/21 06/28/21 -- Goal Details: SBA Problem: PT Misc Start Date: 06/14/21 Goal Start Date Expected End Date End Date PT LTG - Misc 1 06/14/21 07/12/21 -- Goal Details: Pt. Will be independent with all functional mobility Cosigned by Sana Hua, PT at 06/22/2021 4:39 PM CDT * Marco A Ward MD - 06/21/2021 12:31 PM CDT Thoracic Surgery Daily Progress Note ?? Admit: 06/10/2021 8:39 PM Date: June 20, 2021 Length of Stay: 10 Attending: Benny Carpenter* POD:* No surgery date entered * Procedure(s): THORACOTOMY, decortication ? Subjective History: Freddy Hill is a 70-year-old male with history of??COPD, ANDRZEJ, asthma, HTN, AICD, carotid stenosis s/p R CEA, PAD s/p peripheral artery angioplasty with stent placement of LLE who presents as transfer from outside hospital for management of known left-sided empyema. ?? PMH: COPD, ANDRZEJ, asthma, HTN, AICD, carotid stenosis, PAD, arthritis, CKD stage 3 ?? PSH: AICD placement, ventral hernia repair, bilateral hip replacement, carotid endarterectomy, LLE peripheral artery angioplasty with stent placement, tonsillectomy, adenoidectomy Edited by: Valarie Edwards MD at 06/11/2021 2220 ?? Interval History.: NAEO. Continued dysuria this AM. Urine cultures still not speciated. ? Objective Medications: ?? Current Facility-Administered Medications: ??? acetaminophen (TYLENOL) tablet 1,000 mg, 1,000 mg, oral, Q6H Genesis ANDERSON Amanda Leigh, NP, 1,000 mg at 06/19/21 0139 ??? albuterol 2.5 mg/0.5 mL nebulizer solution 2.5 mg, 2.5 mg, nebulization, TID PRN (RT), Talon Resendiz MD, 2.5 mg at 06/15/212251 ??? [Held by Provider] amLODIPine (NORVASC) tablet 10 mg, 10 mg, oral, Daily, Marco A Ward MD, 10 mg at 06/15/21 0900 ??? atorvastatin (LIPITOR) tablet 40 mg, 40 mg, oral, Daily, Marco A Ward MD, 40 mg at 06/18/21 1144 ??? bisacodyl EC (DULCOLAX EC) tablet 10 mg, 10 mg, oral, Daily PRN, Pradeep Palma MD ??? calcium carbonate (TUMS) chewable tablet 500 mg, 200 mg of elemental calcium, oral, Daily PRN, Marco A Ward MD, 500 mg at 06/13/212116 ??? carvediloL (COREG) tablet 6.25 mg, 6.25 mg, oral, BID, Emely Moss NP, 6.25 mg at 06/18/212151 ??? cefTRIAXone (ROCEPHIN) 2,000 mg/20 mL in sterile water (premix) 2,000 mg, 2,000 mg, intravenous, Q24H JUSTIN, Emely Moss NP, 2,000 mg at 06/18/21 0935 ??? [Held by Provider] cloNIDine (CATAPRES) tablet 0.1 mg, 0.1 mg, oral, BID, Marco A Ward MD, 0.1 mg at 06/15/21 0900 ??? doxepin (SINEquan) capsule 25 mg, 25 mg, oral, Nightly, Marco A Ward MD, 25 mg at 06/18/212151 ??? enoxaparin (LOVENOX) syringe 30 mg, 30 mg, subcutaneous, Daily-2100, Pradeep Palma MD, 30 mg at 06/18/212151 ??? guaiFENesin (ROBITUSSIN) 20 mg/mL oral liquid 200 mg, 200 mg, oral, QID, Milagro Toth NP, 200 mg at 06/18/212151 ??? HYDROmorphone (DILAUDID) injection 0.2 mg, 0.2 mg, intravenous, Q4H PRN, Samra Hurtado NP ??? lactulose 0.67 gram/mL oral solution 20 g, 20 g, oral, TID, Samra Hurtado NP ??? lidocaine (LIDODERM) 5 % patch 2 patch, 2 patch, transdermal, Daily, Valarie Edwards MD, Medication Removed at 06/18/212157 ??? linezolid (ZYVOX) tablet 600 mg, 600 mg, oral, BID, Emely Moss NP, 600 mg at 06/18/212151 ??? magnesium sulfate 2 g/50 mL in water (premix) 2 g, 2 g, intravenous, Once, Emely Moss NP ??? metroNIDAZOLE (FLAGYL) tablet 500 mg, 500 mg, oral, TID, Emely Moss NP, 500 mg at 06/18/212151 ??? ondansetron ODT (ZOFRAN-ODT) disintegrating tablet 4 mg, 4 mg, oral, Q6H PRN, 4 mg at 06/18/21 0957 OR [DISCONTINUED] ondansetron (ZOFRAN) injection 4 mg, 4 mg, intravenous, Q6H PRN, Yamilet Faustin MD ??? oxyCODONE (ROXICODONE) tablet 5 mg, 5 mg, oral, Q4H PRN, Valarie Edwards MD, 5 mg at 06/19/21 0537 ??? pantoprazole DR (PROTONIX) extended release tablet 40 mg, 40 mg, oral, Daily, Pradeep Palma MD, 40 mg at 06/18/21 0816 ??? polyethylene glycol (MIRALAX) packet 17 g, 17 g, oral, Daily, Samra Hurtado NP, 17 g at 06/17/21 0954 ??? potassium chloride ER (KLOR-CON) extended release tablet 20 mEq, 20 mEq, oral, Once, Emely Moss NP ??? ramelteon (ROZEREM) tablet 8 mg, 8 mg, oral, Nightly PRN, Marco A Ward MD, 8 mg at 06/13/21 2110 ??? senna-docusate (PERICOLACE) 8.6-50 mg per tablet 1 tablet, 1 tablet, oral, BID, Samra Hurtado, SHASHANK, 1 tablet at 06/17/21 0953 ??? sodium chloride 0.9% flush 0.5-20 mL, 0.5-20 mL, intra-catheter, Q8H JUSTINLouie Connor Patrick, MD, 10 mL at 06/18/21 0647 ??? sodium chloride 0.9% flush 0.5-20 mL, 0.5-20 mL, intra-catheter, PRN, Pradeep Palma MD, 10 mL at 06/11/21 0810 ??? sodium chloride 0.9% flush 0.5-20 mL, 0.5-20 mL, intra-catheter, Q8H JUSTIN, Pradeep Palma MD, 10 mL at 06/17/21 2039 ??? sodium chloride 0.9% flush 0.5-20 mL, 0.5-20 mL, intra-catheter, PRN, Pradeep Palma MD, 10 mL at 06/18/21 1337 ??? tamsulosin (FLOMAX) extended release capsule 0.4 mg, 0.4 mg, oral, Daily with dinner, Pradeep Palma MD, 0.4 mg at 06/18/21 0816 ??? umeclidinium (INCRUSE ELLIPTA) 62.5 mcg/actuation inhaler 62.5 mcg, 1 puff, inhalation, Daily, Juanita Burks MD, 62.5 mcg at 06/18/21 1144 ?? Diet: ? Dietary Orders (From admission, onward) ? Start Ordered ?? 06/15/21 1229 ?? Adult Diet Regular, Restricted; Renal Diet effective now Question Answer Comment ([facility]) Diet type Regular ?? ([facility]) Diet type Restricted ?? Renal: Renal ?? 06/15/21 1228 ? Is&Os: I/O last 2 completed shifts: In: - Out: 600 [Urine:600] No intake/output data recorded. ?? Physical Exam: 24hr Min/Max: Temp Min: 36.5 ??C (97.7 ??F) Max: 36.9 ??C (98.4 ??F) Pulse Min: 85 Max: 97 BP Min: 118/59 Max: 156/61 Resp Min: 18 Max: 20 SpO2 Min: 88 % Max: 98 % Vitals: ?? 06/19/21 0357 BP: 145/72 Pulse: 86 Resp: 18 Temp: 36.6 ??C (97.9 ??F) SpO2: 96% ?? Constitutional: alert and oriented x3 and no acute distress HEENT: Pupils equal, EOMs grossly normal, mucous membranes moist Respiratory: respirations even and unlabored on 2L NC.CV: RRR Abdomen: soft, non-distended Skin: warm, well perfused and extremities non-edematous ?? Active and Removed ?? None ? Labs/Imaging: Recent Labs Lab Units 06/18/21 0941 06/17/21 1012 06/16/21 2315 WBC K/cumm 12.5* 13.5* 13.7* HEMOGLOBIN g/dL 8.5* 8.1* 6.8* HEMATOCRIT % 26.9* 25.4* 22.0* PLATELETS K/cumm 184 174 153 ? Recent Labs Lab Units 06/19/21 0148 06/18/21 0941 06/16/21 2223 SODIUM mmol/L 142 136 138 POTASSIUM PLASMA mmol/L 3.2* 3.3 3.8 CHLORIDE mmol/L 105 100 102 CO2 mmol/L 28 27 29 BUN SERUM mg/dL 39* 45* 54* CREATININE mg/dL 3.05* 3.30* 3.53* GLUCOSE mg/dL 88 120 123 CALCIUM mg/dL 7.8* 8.2* 8.2* ? XR Chest 1 View ?? Result Date: 06/11/2021 The current study is compared with the prior radiograph dated CT dated 06/08/2021. Left subclavian atrioventricular pacemaker is noted, the ventricular lead is near the tricuspid valve. Loculated left effusion/empyema appears similar in configuration to CT. Associated patchy opacities may represent atelectasis or pneumonia. The right lung is clear with no pleural effusion. There is no pneumothorax. Cardiomediastinal silhouette is normal and unchanged. Dictated by: Ranulfo Tariq M.D. The radiology attending physician has personally reviewed this study, and had reviewed and/or editedthis written report and agrees with it. Electronically signed by: Saniya Tapia M.D. ?? [place] Outside Reference ?? Result Date: 06/10/2021 These images are for Reference purposes only and have not been reviewed by [facility]. There will be no report generated by a [facility] Radiologist. ?? [place] Outside Reference ?? Result Date: 06/10/2021 These images are for Reference purposes only and have not been reviewed by [facility]. There will be no report generated by a [facility] Radiologist. ?? XR Outside Reference ?? Result Date: 06/10/2021 These images are for Reference purposes only and have not been reviewed by [facility]. There will be no report generated by a [facility] Radiologist. ?? XR Outside Reference ?? Result Date: 06/10/2021 These images are for Reference purposes only and have not been reviewed by [facility]. There will be no report generated by a [facility] Radiologist. ?? CT Body Outside Consult ?? Result Date: 06/11/2021 1. Moderate left-sided pleural effusion in keeping with known empyema. Left lower lobe opacity could represent atelectasis or pneumonia. Lack of intravenous contrast limits evaluation for pleural andlung enhancement. 2. Aortic arch penetrating atherosclerotic ulcer. [...] images may or may not represent the levelock source data set and thus may contain changes that may lower the accuracy of this second-opinion interpretation. Electronically signed by: Bartolome Kathleen M.D. , PHD ?? CT Body Outside Reference ?? Result Date: 06/10/2021 These images are for Reference purposes only and have not been reviewed by [facility]. There will be no report generated by a [facility] Radiologist. ?? [place] Outside Reference ?? Result Date: 06/10/2021 These images are for Reference purposes only and have not been reviewed by [facility]iology. There will be no report generated by a [facility] Radiologist. ? Assessment/Plan ?? ALFREDO (acute kidney injury) ([facility]) ([facility]) Assessment & Plan -per renal: likely multifactorial. Patient still making adequate urine. -renally dose medications -continue to monitor renal function -trending down -monitor - C/O burning and UA sent. UTI on rocephin already -F/U culture ?? Anemia Assessment & Plan - monitor - possibly R/T empyema ?? Hypertension Assessment & Plan Has been normotensive while inpatient -Continue Amlodipine, Carvedilol, clonidine - Lisinopril and HCTZ on hold ?? CKD (chronic kidney disease) stage 4, GFR 15-29 ml/min ([facility]) ([facility]) Assessment & Plan At time of admission creat baseline 2.5 - renal following - Avoid other nephrotoxic medications - Monitor labs ?? COPD (chronic obstructive pulmonary disease) ([facility]) ([facility]) Assessment & Plan Wears 2L O2 overnight, has ANDRZEJ - continue home inhaler ?? PVD (peripheral vascular disease) ([facility]) ([facility]) Assessment & Plan S/p peripheral artery angioplasty with stent placement x3. Takes Plavix at home. According to OSH records, last dose was 06/03. - hold Plavix ?? Cardiac pacemaker in situ Assessment & Plan 2/2 symptomatic bradycardia, second degree AV block - on Eliquis (last dose 06/06), unknown why? - hold AC ?? * Empyema ([facility]) ([facility]) Assessment & Plan Empyema without??systemic manifestations WBC: 13.5, afebrile. OSH CT shows small to moderate loculated pleural effusion. - s/p L thoracotomy and decortication on 06/12 - micro results from OSH--show gram positive in cocci, moderate growth strept intermedius - ID consult : appreciate recs - Pain management- Discontinue oxycodone, Dilaudid and restart home tramadol PT recommending rehab-SW aware and working on placement ? Marco A Ward MD ? For patients or family members viewing this note through [employer] access programs: This note was written as a communication tool between healthcare providers and may contain technical language, terminology and abbreviations that is difficult to interpret without advanced medical training. ??If you have questions or concerns regarding what is written in this note, please request to speak with the primary medical team taking care of you or your family member or call your PCP for clarification. Please do not call the cell or pager numbers listed in this note, as the provider they are associated with may no longer be involved in your care. Cosigned by Benny Carpenter MD at 06/26/2021 12:47 PM CDT * Britni Cheatham - 06/20/2021 2:26 PM CDT Physical Therapy Physical Therapy Progress Note NOTE: This is a summary note of the emery components of the treatment session. For full details, review chart for all flowsheets documented on by this physical therapy clinician on this date. Vital signs documented in vital signs flowsheet. Care plan progress documented in Care Plan Activity. For questions, please review the treatment team and contact the PT or HR ADMINISTRATIVE ASSISTANT currently assigned to this patient. If a physical therapy clinician is not assigned to this patient, please call [phone]. 06/20/21 1426 PT Last Visit Session Type Treatment PT Received On 06/20/21 Safe Environment Call Light within Reach;Notified RN;Patient found sitting in Chair;Overbed Table within Reach (Pt left seated in chair w/ call light in reach) Subjective Agreeable to Therapy Family/Caregiver Present Yes (Sister present) Current Functional Status PT Functional Mobility Therapeutic activity to encourage mobility, transfer training, ambulation Precautions Precautions Fall risk;ANDRZEJ Activity Tolerance Activity Tolerance Comments Margot: SH Pain Assessment Pain Assessment 0-10 Pain Score 4 Patient's Stated Pain Goal No pain Pain Type Surgical pain Pain Location Back (Lumbar) (2/2 surgery) Pain Orientation Mid Pain Interventions Exercise;Increased activity;Physical Therapy Cognition Arousal/Alertness Alert;Appropriate responses to stimuli Orientation Oriented X4 (person, place, time, situation) Compliance/Behavior Easy to engage Balance Balance Yes Static Sitting Balance Static Sitting-Balance Support No upper extremity supported;Feet supported (Pt seated edge of chair w/ hands in lap and feet on floor) Static Sitting-Sitting Surface Chair Static Sitting-Level of Assistance Distant supervision Static Sitting-Comment/# of Minutes Supervision for pt safety Static Standing Balance Static Standing-Balance Support Bilateral upper extremity supported (Pt hands on WW handles) Static Standing-Standing Surface Floor Static Standing-Level of Assistance Close supervision Static Standing-Comment/# of Minutes Supervision for pt safety Seated Seated-Exercises Upper extremity Seated-Exercise Type (UE AROM 2/2 edema) Seated-Motion AROM Seated-Exercise Comments UE AROM of fingers, wrist, elbow, and shoulder 2/2 edema Equipment Use Equipment Use Comments No gait belt used Bed Mobility Bed Mobility No Transfers Transfer Yes Transfer 1 Transfer From 1 Sit Transfer Type 1 To and from Transfer to 1 Stand Technique 1 Sit to stand;Stand to sit Transfer Level of Assistance 1 Standby Assist Trials/Comments 1 SBA for pt safety (Pt noted that he didn't use his UEs which was an improvement) Ambulation Ambulation Yes Ambulation 1 Distance (ft) 1 30 (30ft max, 80ft total, 4 standing rest breaks) Surface 1 Level tile Device 1 Wheeled walker Other Apparatus 1 Wheelchair follow (For pt comfort) Assistance 1 Standby Assist Gait: Requires verbal cues to 1 Utilize appropriate gait sequencing;Improve upright posture;Pace activity Quality of Gait 1 Decreased endurance, decreased carmella, decreased step length Ambulation Comments 1 4 standing rest breaks, verbal cues needed for continuous/fluid gait pattern Stairs Stairs No Other Comments Other PT Comments Pt noted that he didn't use UEs during sit-stand trx which was an improvement forhim, verbal cues needed for a continuous/fluid gait pattern w/ WW, ambulation limited by SOB but noted as improved from previous walking sessions (UE AROM provided 2/2 edema, noted decrease in edema w/ demo) Basic Mobility - 6 Click How much difficulty does the patient have: Turning over in bed 4 How much difficulty does the patient currently have: Sitting down and standing up from a chair witharms? 3 How much difficulty does the patient have: Moving from lying on back to sitting on the side of the bed? 4 How much difficulty does the patient have: Moving to and from a bed to a chair including wheelchair? 3 How much help does the patient currently need: Walk in hospital room? 3 How much help from another person does the patient currently need: Climbing 3-5 steps with a railing? 3 Total 6 Click Score (range 6-24) 20 Assessment Prognosis Excellent Problem List Gait deviations;Decreased strength;Decreased endurance;Decreased mobility Barriers to Discharge Current Mobility Status Plan Plan Alter current plan;If this is the last note, consider this the discharge summary Plan Comments Alter d/c recs Recommendation/Plan PT Recommendation/Plan Home with family;Home with intermittent assist PT Recommendation/Plan Comments Pending pt progress PT Frequency 5-7x/wk Treatment/Interventions Balance Training;Endurance training;Functional activity;Stair training;Strengthening;Therapeutic activity;Therapeutic exercise;Transfer training Progress Progressing toward goals PT - Next Appointment 06/22/21 Multi-Disciplinary Problems (from Physical Therapy) Active Problems Problem: Mobility Start Date: 06/14/21 Goal Start Date Expected End Date End Date STG - Patient will ambulate 06/14/21 06/28/21 -- Goal Details: 200', AAD, SBA Problem: Transfers Start Date: 06/14/21 Goal Start Date Expected End Date End Date STG - Patient to transfer to and from sit to supine 06/14/21 06/28/21 -- Goal Details: SBA Goal Start Date Expected End Date End Date STG - Patient will transfer sit to and from stand 06/14/21 06/28/21 -- Goal Details: SBA Problem: PT Misc Start Date: 06/14/21 Goal Start Date Expected End Date End Date PT LTG - Misc 1 06/14/21 07/12/21 -- Goal Details: Pt. Will be independent with all functional mobility Cosigned by Samra Velásquez, PT at 06/20/2021 3:52 PM CDT * Karla Meneses MD - 06/20/2021 12:23 PM CDT Thoracic Surgery Daily Progress Note ?? Admit: 06/10/2021 8:39 PM Date: June 20, 2021 Length of Stay: 10 Attending: Benny Carpenter* POD:* No surgery date entered * Procedure(s): THORACOTOMY, decortication ? Subjective History: Freddy Hill is a 70-year-old male with history of??COPD, ANDRZEJ, asthma, HTN, AICD, carotid stenosis s/p R CEA, PAD s/p peripheral artery angioplasty with stent placement of LLE who presents as transfer from outside hospital for management of known left-sided empyema. ?? PMH: COPD, ANDRZEJ, asthma, HTN, AICD, carotid stenosis, PAD, arthritis, CKD stage 3 ?? PSH: AICD placement, ventral hernia repair, bilateral hip replacement, carotid endarterectomy, LLE peripheral artery angioplasty with stent placement, tonsillectomy, adenoidectomy Edited by: Valarie Edwards MD at 06/11/2021 4464 ?? Interval History:no issues overnight. Looks and feels good this AM. Cont rehab. Waiting for placement. Complains of burning urination and diarrhea since yesterday ? Objective Medications: ?? Current Facility-Administered Medications: ??? acetaminophen (TYLENOL) tablet 1,000 mg, 1,000 mg, oral, Q6H [facility], Samra Hurtado NP, 1,000 mg at 06/19/21 0139 ??? albuterol 2.5 mg/0.5 mL nebulizer solution 2.5 mg, 2.5 mg, nebulization, TID PRN (RT), Talon Resendiz MD, 2.5 mg at 06/15/21 2252 ??? [Held by Provider] amLODIPine (NORVASC) tablet 10 mg, 10 mg, oral, Daily, Marco A Ward MD, 10 mg at 06/15/21 0900 ??? atorvastatin (LIPITOR) tablet 40 mg, 40 mg, oral, Daily, Marco A Ward MD, 40 mg at 06/18/21 1144 ??? bisacodyl EC (DULCOLAX EC) tablet 10 mg, 10 mg, oral, Daily PRN, Pradeep Palma MD ??? calcium carbonate (TUMS) chewable tablet 500 mg, 200 mg of elemental calcium, oral, Daily PRN, Marco A Ward MD, 500 mg at 06/13/212116 ??? carvediloL (COREG) tablet 6.25 mg, 6.25 mg, oral, BID, Emely Moss NP, 6.25 mg at 06/18/212151 ??? cefTRIAXone (ROCEPHIN) 2,000 mg/20 mL in sterile water (premix) 2,000 mg, 2,000 mg, intravenous, Q24H JUSTIN, Emely Moss NP, 2,000 mg at 06/18/21 0935 ??? [Held by Provider] cloNIDine (CATAPRES) tablet 0.1 mg, 0.1 mg, oral, BID, Marco A Ward MD, 0.1 mg at 06/15/21 0900 ??? doxepin (SINEquan) capsule 25 mg, 25 mg, oral, Nightly, Marco A Ward MD, 25 mg at 06/18/212151 ??? enoxaparin (LOVENOX) syringe 30 mg, 30 mg, subcutaneous, Daily-2099, Pradeep Palma MD, 30 mg at 06/18/212151 ??? guaiFENesin (ROBITUSSIN) 20 mg/mL oral liquid 200 mg, 200 mg, oral, QID, Milagro Toth NP, 200 mg at 06/18/212151 ??? HYDROmorphone (DILAUDID) injection 0.2 mg, 0.2 mg, intravenous, Q4H PRN, Samra Hurtado NP ??? lactulose 0.67 gram/mL oral solution 20 g, 20 g, oral, TID, Samra Hurtado NP ??? lidocaine (LIDODERM) 5 % patch 2 patch, 2 patch, transdermal, Daily, Valarie Edwards MD, Medication Removed at 06/18/212157 ??? linezolid (ZYVOX) tablet 600 mg, 600 mg, oral, BID, Emely Moss NP, 600 mg at 06/18/212151 ??? magnesium sulfate 2 g/50 mL in water (premix) 2 g, 2 g, intravenous, Once, Emely Moss NP ??? metroNIDAZOLE (FLAGYL) tablet 500 mg, 500 mg, oral, TID, Emely Moss NP, 500 mg at 06/18/212151 ??? ondansetron ODT (ZOFRAN-ODT) disintegrating tablet 4 mg, 4 mg, oral, Q6H PRN, 4 mg at 06/18/21 0957 OR [DISCONTINUED] ondansetron (ZOFRAN) injection 4 mg, 4 mg, intravenous, Q6H PRN, Yamilet Faustin MD ??? oxyCODONE (ROXICODONE) tablet 5 mg, 5 mg, oral, Q4H PRN, Valarie Edwards MD, 5 mg at 06/19/21 0537 ??? pantoprazole DR (PROTONIX) extended release tablet 40 mg, 40 mg, oral, Daily, Pradeep Palma MD, 40 mg at 06/18/21 0816 ??? polyethylene glycol (MIRALAX) packet 17 g, 17 g, oral, Daily, Samra Hurtado NP, 17 g at 06/17/21 0954 ??? potassium chloride ER (KLOR-CON) extended release tablet 20 mEq, 20 mEq, oral, Once, Emely Moss NP ??? ramelteon (ROZEREM) tablet 8 mg, 8 mg, oral, Nightly PRN, Marco A Ward MD, 8 mg at 06/13/210 ??? senna-docusate (PERICOLACE) 8.6-50 mg per tablet 1 tablet, 1 tablet, oral, BID, Samra Hurtado NP, 1 tablet at 06/17/21 0953 ??? sodium chloride 0.9% flush 0.5-20 mL, 0.5-20 mL, intra-catheter, Q8H JUSTIN, Pradeep Palma MD, 10 mL at 06/18/21 0647 ??? sodium chloride 0.9% flush 0.5-20 mL, 0.5-20 mL, intra-catheter, PRN, Pradeep Palma MD, 10 mL at 06/11/21 0810 ??? sodium chloride 0.9% flush 0.5-20 mL, 0.5-20 mL, intra-catheter, Q8H JUSTIN, Pradeep Palma MD, 10 mL at 06/17/21 2039 ??? sodium chloride 0.9% flush 0.5-20 mL, 0.5-20 mL, intra-catheter, PRN, Pradeep Palma MD, 10 mL at 06/18/21 1337 ??? tamsulosin (FLOMAX) extended release capsule 0.4 mg, 0.4 mg, oral, Daily with dinner, Pradeep Palma MD, 0.4 mg at 06/18/21 0816 ??? umeclidinium (INCRUSE ELLIPTA) 62.5 mcg/actuation inhaler 62.5 mcg, 1 puff, inhalation, Daily, Juanita Burks MD, 62.5 mcg at 06/18/21 1144 ?? Diet: ? Dietary Orders (From admission, onward) ? Start Ordered ?? 06/15/21 1229 ?? Adult Diet Regular, Restricted; Renal Diet effective now Question Answer Comment ([facility]) Diet type Regular ?? ([facility]) Diet type Restricted ?? Renal: Renal ?? 06/15/21 1228 ? Is&Os: I/O last 2 completed shifts: In: - Out: 600 [Urine:600] No intake/output data recorded. ?? Physical Exam: 24hr Min/Max: Temp Min: 36.5 ??C (97.7 ??F) Max: 36.9 ??C (98.4 ??F) Pulse Min: 85 Max: 97 BP Min: 118/59 Max: 156/61 Resp Min: 18 Max: 20 SpO2 Min: 88 % Max: 98 % Vitals: ?? 06/19/21 0357 BP: 145/72 Pulse: 86 Resp: 18 Temp: 36.6 ??C (97.9 ??F) SpO2: 96% ?? Constitutional: alert and oriented x3 and no acute distress HEENT: Pupils equal, EOMs grossly normal, mucous membranes moist Respiratory: respirations even and unlabored on 2L NC.CV: RRR Abdomen: soft, non-distended : indwelling london catheter to gravity with clear, yellow drainage. Skin: warm, well perfused and extremities non-edematous ?? Active and Removed ?? None ? Labs/Imaging: Recent Labs Lab Units 06/18/21 0941 06/17/21 1012 06/16/21 2315 WBC K/cumm 12.5* 13.5* 13.7* HEMOGLOBIN g/dL 8.5* 8.1* 6.8* HEMATOCRIT % 26.9* 25.4* 22.0* PLATELETS K/cumm 184 174 153 ? Recent Labs Lab Units 06/19/21 0148 06/18/21 0941 06/16/21 2223 SODIUM mmol/L 142 136 138 POTASSIUM PLASMA mmol/L 3.2* 3.3 3.8 CHLORIDE mmol/L 105 100 102 CO2 mmol/L 28 27 29 BUN SERUM mg/dL 39* 45* 54* CREATININE mg/dL 3.05* 3.30* 3.53* GLUCOSE mg/dL 88 120 123 CALCIUM mg/dL 7.8* 8.2* 8.2* ? XR Chest 1 View ?? Result Date: 06/11/2021 The current study is compared with the prior radiograph dated CT dated 06/08/2021. Left subclavian atrioventricular pacemaker is noted, the ventricular lead is near the tricuspid valve. Loculated left effusion/empyema appears similar in configuration to CT. Associated patchy opacities may represent atelectasis or pneumonia. The right lung is clear with no pleural effusion. There is no pneumothorax. Cardiomediastinal silhouette is normal and unchanged. Dictated by: Ranulfo Tariq M.D. The radiology attending physician has personally reviewed this study, and had reviewed and/or editedthis written report and agrees with it. Electronically signed by: Saniya Tapia M.D. ?? [place] Outside Reference ?? Result Date: 06/10/2021 These images are for Reference purposes only and have not been reviewed by [facility]. There will be no report generated by a [facility] Radiologist. ?? [place] Outside Reference ?? Result Date: 06/10/2021 These images are for Reference purposes only and have not been reviewed by [facility]. There will be no report generated by a [facility] Radiologist. ?? XR Outside Reference ?? Result Date: 06/10/2021 These images are for Reference purposes only and have not been reviewed by [facility]. There will be no report generated by a [facility] Radiologist. ?? XR Outside Reference ?? Result Date: 06/10/2021 These images are for Reference purposes only and have not been reviewed by [facility]. There will be no report generated by a [facility] Radiologist. ?? CT Body Outside Consult ?? Result Date: 06/11/2021 1. Moderate left-sided pleural effusion in keeping with known empyema. Left lower lobe opacity could represent atelectasis or pneumonia. Lack of intravenous contrast limits evaluation for pleural andlung enhancement. 2. Aortic arch penetrating atherosclerotic ulcer. [...] images may or may not represent the levelock source data set and thus may contain changes that may lower the accuracy of this second-opinion interpretation. Electronically signed by: Bartolome Kathleen M.D. , PHD ?? CT Body Outside Reference ?? Result Date: 06/10/2021 These images are for Reference purposes only and have not been reviewed by [facility]. There will be no report generated by a [facility] Radiologist. ?? [place] Outside Reference ?? Result Date: 06/10/2021 These images are for Reference purposes only and have not been reviewed by [facility]. There will be no report generated by a [facility] Radiologist. ? Assessment/Plan ?? ALFREDO (acute kidney injury) (CMS/HCC) ([facility]) Assessment & Plan -per renal: likely multifactorial. Patient still making adequate urine. -renally dose medications -continue to monitor renal function -trending down -monitor - C/O burning and UA sent. UTI on rocephin already-F/U culture ?? Anemia Assessment & Plan - monitor - possibly R/T empyema ?? Hypertension Assessment & Plan Has been normotensive while inpatient -Continue Amlodipine, Carvedilol, clonidine - Lisinopril and HCTZ on hold ?? CKD (chronic kidney disease) stage 4, GFR 15-29 ml/min ([facility]) ([facility]) Assessment & Plan At time of admission creat baseline 2.5 - renal following - Avoid other nephrotoxic medications - Monitor labs ?? COPD (chronic obstructive pulmonary disease) ([facility]) ([facility]) Assessment & Plan Wears 2L O2 overnight, has ANDRZEJ - continue home inhaler ?? PVD (peripheral vascular disease) ([facility]) ([facility]) Assessment & Plan S/p peripheral artery angioplasty with stent placement x3. Takes Plavix at home. According to OSH records, last dose was 06/03. - hold Plavix ?? Cardiac pacemaker in situ Assessment & Plan 2/2 symptomatic bradycardia, second degree AV block - on Eliquis (last dose 06/06), unknown why? - hold AC ?? * Empyema ([facility]) ([facility]) Assessment & Plan Empyema without??systemic manifestations WBC: 13.5, afebrile. OSH CT shows small to moderate loculated pleural effusion. - s/p L thoracotomy and decortication on 06/12 - micro results from OSH--show gram positive in cocci, moderate growth strept intermedius - ID consult : appreciate recs - Pain management- Discontinue oxycodone, Dilaudid and restart home tramadol PT recommending rehab-SW aware and working on placement ? Karla Meneses MD Anesthesiology PGY1 ? For patients or family members viewing this note through [employer] access programs: This note was written as a communication tool between healthcare providers and may contain technical language, terminology and abbreviations that is difficult to interpret without advanced medical training. ??If you have questions or concerns regarding what is written in this note, please request to speak with the primary medical team taking care of you or your family member or call your PCP for clarification. Please do not call the cell or pager numbers listed in this note, as the provider they are associated with may no longer be involved in your care. Cosigned by Benny Carpenter MD at 06/26/2021 12:45 PM CDT * Filippo Martinez MD - 06/19/2021 5:06 PM CDT Renal Follow-Up Note Name: Freddy Hill Age: 70 y.o. Patient's Attending Physician: Benny Carpenter* Admit Date: 06/10/2021 8:39 PM Reason For Visit: Empyema New Symptoms - no acute events overnight - VSS - no new complaints - good UOP Brief Hospital course : Mr. Hill is a 70 y/o m w/ PMH of COPD on nightly 2 L O2, CKD stage 3, ANDRZEJ, BA, HTN who was a/w empyema and transferred from [facility] for further Mx I/s/o worsening leukocytosis (42 k ). Underwent thoracotomy and decortication on 06/12. Received abx both at OSH and here. vanc levels elevated. Developed ALFREDO. ?? Renal c/s for ALFREDO ? 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 PCP currently monitoring renal function He recently moved to [place]. . Used to get all his care in [place] at [facility]. No h/o renal stones. He had renal failure once in 2013 at the time of hip replacement. He Was told his kidneys stopped working for 1 week. 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 He had recent labs at [facility] last month He takes lasix as needed at home for leg swelling or weight gain Review of Systems: All other systems reviewed and are negative Physical Examination: Vitals: 06/19/21 1640 06/19/21 1645 06/19/21 1650 06/19/21 1655 BP: 160/76 (!) 172/82 168/79 156/80 BP Location: Patient Position: Pulse: 85 91 88 88 Resp: 17 9 16 16 Temp: TempSrc: SpO2: 99% 98% 98% 98% Weight: Height: General appearance: alert, cooperative, in NAD Head: normocephalic, without trauma Neck: range of motion is intact, Resp : Chest CTA b/l No tenderness on palpation Heart: regular rhythm, normal S1 and S2, 1+ b.l le edema Abdomen: soft without mass, non-tender, Neurologic: mental status normal; alert and oriented X 3; Skin:No rashes noted Dialysis Access Exam: NA Laboratory Data I have personally reviewed the following labs: I/O last 3 completed shifts: In: - Out: 1275 [Urine:1275] I/O this shift: In: - Out: 550 [Urine:550] Medications-I have personally reviewed the medications listed below: [Oct] acetaminophen, 1,000 mg, oral, Q6H JUSTIN [Held by Provider] amLODIPine, 10 mg, oral, Daily [OCT Hold] atorvastatin, 40 mg, oral, Daily [OCT Hold] carvediloL, 6.25 mg, oral, BID [OCT Hold] cefTRIAXone, 2,000 mg, intravenous, Q24H JUSTIN [Held by Provider] cloNIDine, 0.1 mg, oral, BID [OCT Hold] doxepin, 25 mg, oral, Nightly [OCT Hold] enoxaparin, 30 mg, subcutaneous, Daily-2100 [Oct] lactulose, 20 g, oral, TID [OCT Hold] lidocaine, 2 patch, transdermal, Daily [OCT Hold] linezolid, 600 mg, oral, BID [OCT Hold] metroNIDAZOLE, 500 mg, oral, TID [OCT Hold] pantoprazole DR, 40 mg, oral, Daily [OCT Hold] polyethylene glycol, 17 g, oral, Daily [OCT Hold] senna-docusate, 1 tablet, oral, BID [OCT Hold] sodium chloride 0.9%, 0.5-20 mL, intra-catheter, Q8H JUSTIN [OCT Hold] sodium chloride 0.9%, 0.5-20 mL, intra-catheter, Q8H JUSTIN [OCT Hold] tamsulosin, 0.4 mg, oral, Daily with dinner [OCT Hold] umeclidinium, 1 puff, inhalation, Daily [OCT Hold] albuterol, 2.5 mg, 2.5 mg at 06/15/212 ??? [MAR Hold] bisacodyl EC, 10 mg ??? [OCT Hold] calcium carbonate, 200 mg of elemental calcium, 500 mg at 06/13/212116 ??? [OCT Hold] HYDROmorphone, 0.2 mg ??? lidocaine PF, , 10 mL at 06/19/21 1655 ??? [OCT Hold] ondansetron ODT, 4 mg, 4 mg at 06/19/21 0938 OR [DISCONTINUED] ondansetron, 4 mg ??? [OCT Hold] oxyCODONE, 5 mg, 5 mg at 06/19/21 0931 ??? [OCT Hold] ramelteon, 8 mg, 8 mg at 06/13/212109 ??? [OCT Hold] sodium chloride 0.9%, 0.5-20 mL, 10 mL at 06/11/21 0810 ??? [OCT Hold] sodium chloride 0.9%, 0.5-20 mL, 10 mL at 06/18/21 1337 Assessment and Recommendations: # Non oliguric ALFREDO on CKD - resolving - no b/l Cr on file. 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 - Cr on admission 2.35 --> 2.4--> 2.8 --> 3.4. - UOP relatively decreased today - Etiology of ALFREDO likely multifactorial - sepsis, hemodynamic changes, medication (vanc toxicity). - vanc trough levels 44.1 on 06/12 and 29.2 on 06/14. 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 - needs OP FU with nephrology. Pt states that he will be find a mechanical and auto body car checker at [facility], with the help of his PCP. - ok for discharge from renal stand point ?? # Hyperkalemia - resolved Discussed with Dr. Perez We will sign off at this time. Please do not hesitate to reach out to us with questions/ concerns. Filippo Martinez Nephrology Fellow Consult 1 Service Contact (phone): [phone] After hours and weekends: please page [phone] Be advised that voice recognition software was used in the production of this record. Errors in interpretation may have been inadvertently missed during review. Cosigned by Genaro Perez MD at 06/20/2021 7:32 AM CDT Associated attestation - Genaro Perez MD - 06/20/2021 7:32 AM CDT I have seen and examined the patient on 06/19/2021. I agree with the findings and plan of care as documented in the resident's/fellow's note.. * Carmen Sánchez NP - 06/19/2021 11:06 AM CDT Infectious Disease Daily Progress ID team: 3 Subjective Chief complaint of back pain. Interval History: No acute events. Pt says he's not on oxygen except on exertion and at night at home. Productive cough with yellow/green sputum. Tolerating antibiotics without problems. Denies: n/v/d, abdominal pain, itching, rash. Objective Anti-infectives (From admission, onward) Start Dose/Rate Route Frequency Ordered Stop 06/15/21 1600 metroNIDAZOLE (FLAGYL) tablet 500 mg 500 mg oral 3 times daily 06/15/21 1348 06/15/21 1430 cefTRIAXone (ROCEPHIN) 2,000 mg/20 mL in sterile water (premix) 2,000 mg 2,000 mg 1,200 mL/hr over 1 Minutes intravenous Every 24 hours scheduled 06/15/21 1348 06/15/21 1430 linezolid (ZYVOX) tablet 600 mg 600 mg oral 2 times daily 06/15/21 1348 Vitals: 24hr Min/Max: Temp Min: 36.5 ??C (97.7 ??F) Max: 36.9 ??C (98.4 ??F) Pulse Min: 85 Max: 124 BP Min: 125/63 Max: 156/61 Resp Min: 18 Max: 20 SpO2 Min: 88 % Max: 100 % Most Recent : Vitals: 06/19/21 1130 BP: 128/69 Pulse: 97 Resp: 20 Temp: 36.6 ??C (97.9 ??F) SpO2: 98% I/O last 2 completed shifts: In: - Out: 600 [Urine:600] I/O this shift: In: - Out: 550 [Urine:550] PE: Physical Exam Constitutional: General: He is not in acute distress. Appearance: He is not ill-appearing. Cardiovascular: Rate and Rhythm: Normal rate and regular rhythm. Heart sounds: Normal heart sounds. Pulmonary: Effort: Pulmonary effort is normal. Abdominal: General: Bowel sounds are normal. There is no distension. Skin: General: Skin is warm. Findings: No erythema or rash. Neurological: General: No focal deficit present. Mental Status: He is alert and oriented to person, place, and time. Psychiatric: Mood and Affect: Mood normal. Lab/Radiology/Diagnostic Review: Recent Labs Lab Units 06/18/21 0941 WBC K/cumm 12.5* HEMOGLOBIN g/dL 8.5* HEMATOCRIT % 26.9* PLATELETS K/cumm 184 Recent Labs Lab Units 06/19/21 0148 SODIUM mmol/L 142 POTASSIUM PLASMA mmol/L 3.2* CHLORIDE mmol/L 105 CO2 mmol/L 28 ANIONGAP mmol/L 9 GLUCOSE mg/dL 88 BUN SERUM mg/dL 39* CREATININE mg/dL 3.05* CALCIUM mg/dL 7.8* No results found for: SEDRATE No components found for: URINE Lab Results Component Value Date MICROBIOLOGY Final Report: No growth 06/12/2021 Imaging review: No results found for this or any previous visit. .. Assessment /Plan * Empyema ([facility]) ([facility]) Assessment & Plan The patient is a 70 y.o. male with PMH of COPD, ANDRZEJ, asthma, CKD, HTN, AICD, carotid stenosis s/p RCEA, PAD s/p angioplasty with stent placement LLE who was transferred from OSH for left empyema. Hewas diagnosed with pneumonia about 1 month ago that was treated unsuccessfully with azithro and prednisone taper. Admitted to OSH with luekocytosis of [address] chest 10/14 showed small to moderate multiloculated left pleural effusion consistent with empyema which was managed medically with antibiotics as patient declined drainage. Due to lack of improvement he later underwent thoracentesis on 06/08 with removal of thick purulent fluid and was transferred on 06/10 for surgical evaluation. Cultures from pleural fluid grew Strep intermedius. He was transferred here for surgical evaluation on 06/10. He was continued on vancomycin and cefepime. He underwent left thoracotomy with decortication on 06/12. Intraop findings included several fluid collections interiorly and posteriorly with severalabscesses in lower lobe, able to decorticate to reinflate the lower lobe although consolidated in some area, also created a pleural tent. Cultures from OR growing Strep intermedius and Staph hominis.Vancomycin was switched to linezolid on 06/14 due to high vanc troughs and continued on cefepime. CXR on 06/[address] in placed and mildly decreased left empyema with adjacent pulmonary opacities. Leukocytosis improved to 21. Recommendations: - Continue ctx 2g IV q24h and metronidazole 500mg PO q8h. - Start doxycyline 100mg PO q12h. - Discontinue linezolid. - CBC with diff, CMP weekly. - Duration pending, however, may transition to PO on ID f/u pending clinical improvement/CT imaging. - ID will sign off, see plan of care dated 06/19 for details. Doxycycline causes photosensitivity and patients should be advised to monitor sun exposure, including increased use of skin-protective clothing and sunscreen, and avoidance of tanning. Doxycycline may result in GI upset. In order to minimize the risk of esophageal ulceration, patients should be advised to take the medication with 8 ounces of water and remain sitting for 30 minutes after taking the pill. Rarely, doxycycline can be associated with pancreatitis, pseudotumor cerebri, elevated LFTs,esophageal ulceration, black tongue syndrome (reversible fungus infection that goes away with drug discontinuation). Divalent cations should be administered 4 hours before or after doxycycline if they are necessary. Metronidazole is associated with GI intolerance, metallic taste, headaches, dark urine. Rarely, it can be associated with seizures, encephalopathy, aseptic meningitis, Samuels-Dejuan syndrome, peripheral neuropathy, insomnia, and a disulfiram-like reaction with alcohol. Patients are advised to avoid alcohol while taking the medication. Please contact the Team 3 ID FREIGHT CLERK or the Attending at the phone numbers in care team with any questions or concerns. After hours, please contact the ID fellow juvenile correctional officer. Cosigned by Malini Fernandez MD at 06/19/2021 4:08 PM CDT Associated attestation - Malini Fernandez MD - 06/19/2021 4:08 PM CDT I have seen and examined the patient on 06/19/21 in conjunction with the non- physician provider. History: He reports feeling better, still has some pain over the incision. Requiring oxygen at rest. CT have been removed. Physical Exam: Left back incision healing. Decreased BS on left lung base. On 2L NC. Lab/Radiology/Diagnostics Review: CXR with unchanged loculated left empyema. Assessment/Plan: Plan to continue ceftriaxone, flagyl and doxycycline as recommended below. Will reassess in clinic with repeat imaging to determine final duration. * MichaSharon maguire - 06/19/2021 9:57 AM CDT Occupational Therapy Occupational Therapy Initial Assessment NOTE:This is a summary note for the emery assessments completed during the evaluation session. For full details, review chart review for all flowsheets documented on by this Occupational Therapist on this date. Vital signs documented in vital signs flowsheet. Assessment Assessment Problem List: Decreased ADL independence, Decreased IADL independence, Decreased endurance, Decreased balance, Decreased functional mobility, Decreased trunk control for functional activities Barriers to Discharge: Current Mobility Status, Decreased caregiver support Plan Plan Plan: Plan of care initiated, If this is the last note, consider this the discharge summary OT Recommendation and Plan Recommendation/Plan OT Recommendation: [facility] OT Recommendation/Plan Comments: If pt refuses SNF placement, recommend home with 24 hour supervision and home health OT. OT Frequency: 2-3x/wk Comments: OTS recommend DC home with 24 hour supervision or SNF if 24-hour supervision is not available. Pt feels home would be a safe option for him at DC, however, he would like to check with his sister first (he is living in her home). OT to follow up after he speaks with her this weekend. Treatment/Interventions: ADL/IADL retraining, Balance Training, Bed mobility, Endurance training, Functional mobility training, Functional transfer training, Therapeutic activity, Therapeutic exercise, Transfer training OT Equipment Recommended: Wheeled walker, Transfer tub bench OT - Next Appointment: 06/22/21 OT - OK to Discharge: No OT Evaluation Complete: Yes General Information General Chart Reviewed: Yes Session Type: Evaluation OT Received On: 06/19/21 Safe Environment: Arm Band Checked, Bed Alarm placed and activated, Notified RN, Call Light within Reach (Pt left sitting in chair with call light in reach. ) Subjective: Agreeable to Therapy Family/Caregiver Present: No Occupational Therapy-Patient Goal: Pt agreeable to OT POC. Precautions Precautions Precautions: Fall risk Home Living Home Living Type of Home: House Home Layout: One level Home Access: Stairs to enter without rails Entrance Stairs-Rails: None Entrance Stairs-Number of Steps: 1 Bathroom Shower/Tub: Tub/shower unit Bathroom Toilet: Raised Bathroom Equipment: Other (Comment) (Vanity for stability during toilet transfer) Bathroom Accessibility: Accessible via walker Home Mobility Equipment: Wheeled walker, Single point cane Home ADL Equipment: Other (Comment) (None) Additional Comments: Pt reports no use of AD in home at baseline. Prior Function Prior Function Level of Hood: Independent functional transfers Lives With: Other (Comment), Family (Sister) Receives Help From: Family (Ft assist bowen, Sister) Driving: No Mode of Transportation: Car ADL Assistance: Independent Instrumental ADL (IADL) Assistance: Needs assistance (Sister provides assistance, at baseline) Fall within the last 6 months: No Prior Function Comments: Pt independent with all functional mobility with no AD, at baseline. Sister provides assistance with IADLs. Activities of Daily Living Grooming Grooming: Where assessed: Standing at sink Grooming: Level of assistance: Standby Assist Grooming: Assistance with: Safety LE Dressing LE Dressing: Where assessed: Chair LE Dressing: Level of assistance: Standby Assist LE Dressing: Assistance with: Safety Toileting Toileting: Where assessed: Chair Toileting: Level of assistance: Standby Assist Toileting: Assistance with: Other (Comment) (safety) Toilet Transfers Toilet Transfer From: Bed Toilet Transfer Type: To and from Toilet Transfer to: Standard bedside commode (Chair-simulated) Toilet Transfer Technique: Ambulating Toilet Transfer: Equipment: Wheeled walker Toilet Transfers: Supervision Toilet Transfers Comments: Pt reported difficulty transfering to standard toilet in bathroom. Pt reports no challenges using raised toilet at home. Pain Pain Assessment Pain Assessment: 0-10 Pain Score: 6 Pain Location: Incision Pain Interventions: Other (Comment) (Pt reports MARY Ferrer just gave him medication) Cognition Cognition Arousal/Alertness: Alert, Appropriate responses to stimuli Attention Span: Appears intact Current communication: Appears Intact Orientation : Oriented X4 (person, place, time, situation) Following Commands: Follows all commands and directions without difficulty Safety Judgment: Good awareness of safety precautions Awareness of Errors: Good awareness of errors made Insight: Fully aware of deficits Problem Solving: Able to problem solve independently Compliance/Behavior: Easy to engage Perseveration: Not present Frederick Cognitive Assessment-Blind (MOCA-Blind) MOCA-Blind Version: Version 3 Memory-Blind: Memory not scored Attention-Blind: 6 Language-Blind: 3 Abstraction-Blind: 2 Delayed Recall-Blind: 2 Orientation-Blind: 5 Education Level-Blind: Education Greater than 12 years MOCA Total Score-Blind: 18 Score Evaluation-Blind: 18-22 Normal MOCA-Blind Comments: Normal 6 Clicks Daily Activity - 6 Clicks Putting on and taking off regular lower body clothing: A Little Bathing: A little Toileting: A little Putting on and taking off upper body clothing: A Little Personal Grooming: A little Eating Meals: None Total Score (range 6-24): 19 Score Interpretation: 19 Balance Static Sitting Balance Static Sitting-Balance Support: No upper extremity supported Static Sitting-Sitting Surface: Bed Static Sitting-Level of Assistance: Distant supervision Static Sitting-Comment/# of Minutes: Safety Dynamic Sitting Balance Dynamic Sitting-Balance Support: No upper extremity supported Dynamic Sitting-Balance: Lateral lean, Forward lean, Reaching for objects, Reaching across midline Dynamic Sitting-Sitting Surface: Bed, Chair Dynamic Sitting-Level of Assistance: Distant supervision Dynamic Sitting-Comments: Safety; observed while setting up tray table. Static Standing Balance Static Standing-Balance Support: Bilateral upper extremity supported Static Standing-Standing Surface: Floor Static Standing-Level of Assistance: Close supervision Static Standing-Comment/# of Minutes: Safety Dynamic Standing Balance Dynamic Standing-Balance Support: No upper extremity supported Dynamic Standing-Balance: Lateral lean, Forward lean, Reaching for objects, Reaching across midline Dynamic Standing-Standing Surface: Floor Dynamic Standing-Level of Assistance: Close supervision Dynamic Standing-Comments: Safety Transfers Transfers Transfer: Yes (Pt declined use of gait belt for OOB mobility.) Transfer 1 Transfer From 1: Sit, Bed, Chair with arms Transfer Type 1: To and from Transfer to 1: Stand Technique 1: Sit to stand, Stand to sit Transfer Device 1: Wheeled walker Transfer Level of Assistance 1: Standby Assist Trials/Comments 1: Safety Transfers 2 Trials/Comments 2: Functional room mobility completed with WW and SBA for safety and line managment. Pt ambulated ~50 feet. Bed Mobility Bed Mobility Bed Mobility: No (Pt found sitting EOB at start of session. ) RUE Assessment RUE Assessment RUE Assessment: Within Functional Limits LUE Assessment LUE Assessment LUE Assessment: Within Functional Limits Other Comments Other Comments Comments: OTS recommend DC home with 24 hour supervision or SNF if 24-hour supervision is not available. Pt feels home would be a safe option for him at DC, however, he would like to check with his sister first (he is living in her home). OT to follow up after he speaks with her this weekend. OT Goals Multi-Disciplinary Problems (from Occupational Therapy) Active Problems Problem: Grooming Start Date: 06/19/21 Goal Start Date Expected End Date End Date STG - Patient will complete grooming 06/19/21 06/26/21 -- Goal Details: Mod I, standing at sink Problem: Toileting Start Date: 06/19/21 Goal Start Date Expected End Date End Date STG - Patient will complete toileting tasks with 06/19/21 06/26/21 -- Goal Details: Mod I Problem: Transfers Start Date: 06/19/21 Goal Start Date Expected End Date End Date STG - Patient will perform toilet transfer 06/19/21 06/26/21 -- Goal Details: Mod I Problem: Transfers Start Date: 06/19/21 Goal Start Date Expected End Date End Date STG - Patient will perform tub/shower transfer 06/19/21 06/26/21 -- Cosigned by Racquel Hernandez OT at 06/19/2021 4:01 PM CDT * Emely Moss NP - 06/19/2021 8:27 AM CDT Thoracic Surgery Daily Progress Note Admit: 06/10/2021 8:39 PM Date: June 19, 2021 Length of Stay: 9 Attending: Benny Carpenter* POD:* No surgery date entered * Procedure(s): THORACOTOMY, decortication Subjective History: Freddy Hill is a 70-year-old male with history of COPD, ANDRZEJ, asthma, HTN, AICD, carotid stenosiss/p R CEA, PAD s/p peripheral artery angioplasty with stent placement of LLE who presents as transfer from outside hospital for management of known left-sided empyema. PMH: COPD, ANDRZEJ, asthma, HTN, AICD, carotid stenosis, PAD, arthritis, CKD stage 3 PSH: AICD placement, ventral hernia repair, bilateral hip replacement, carotid endarterectomy, LLE peripheral artery angioplasty with stent placement, tonsillectomy, adenoidectomy Edited by: Valarie Edwards MD at 06/11/2021 0455 Interval History:no issues overnight. Looks and feels good this AM. Cont rehab and await ID recs todetermine plan. Otherwise ready for home. Home O2 at night and was off O2 al day yesterday. Objective Medications: Current Facility-Administered Medications: ??? acetaminophen (TYLENOL) tablet 1,000 mg, 1,000 mg, oral, Q6H Genesis ANDERSON Amanda Leigh, NP, 1,000 mg at 06/19/21 0139 ??? albuterol 2.5 mg/0.5 mL nebulizer solution 2.5 mg, 2.5 mg, nebulization, TID PRN (RT), Talon Resendiz MD, 2.5 mg at 06/15/212251 ??? [Held by Provider] amLODIPine (NORVASC) tablet 10 mg, 10 mg, oral, Daily, Marco A Ward MD, 10 mg at 06/15/21 0900 ??? atorvastatin (LIPITOR) tablet 40 mg, 40 mg, oral, Daily, Marco A Ward MD, 40 mg at 06/18/21 1144 ??? bisacodyl EC (DULCOLAX EC) tablet 10 mg, 10 mg, oral, Daily PRN, Pradeep Palma MD ??? calcium carbonate (TUMS) chewable tablet 500 mg, 200 mg of elemental calcium, oral, Daily PRN, Marco A Ward MD, 500 mg at 06/13/212116 ??? carvediloL (COREG) tablet 6.25 mg, 6.25 mg, oral, BID, Emely Moss NP, 6.25 mg at 06/18/212151 ??? cefTRIAXone (ROCEPHIN) 2,000 mg/20 mL in sterile water (premix) 2,000 mg, 2,000 mg, intravenous, Q24H JUSTIN, Emely Moss NP, 2,000 mg at 06/18/21 0935 ??? [Held by Provider] cloNIDine (CATAPRES) tablet 0.1 mg, 0.1 mg, oral, BID, Marco A Ward MD, 0.1 mg at 06/15/21 0900 ??? doxepin (SINEquan) capsule 25 mg, 25 mg, oral, Nightly, Marco A Ward MD, 25 mg at 06/18/212151 ??? enoxaparin (LOVENOX) syringe 30 mg, 30 mg, subcutaneous, Daily-2100, Pradeep Palma MD, 30 mg at 06/18/212151 ??? guaiFENesin (ROBITUSSIN) 20 mg/mL oral liquid 200 mg, 200 mg, oral, QID, Milagro Toth FREIGHT CLERK, 200 mg at 06/18/212151 ??? HYDROmorphone (DILAUDID) injection 0.2 mg, 0.2 mg, intravenous, Q4H PRN, Samra Hurtado NP ??? lactulose 0.67 gram/mL oral solution 20 g, 20 g, oral, TID, Samra Hurtado NP ??? lidocaine (LIDODERM) 5 % patch 2 patch, 2 patch, transdermal, Daily, Valarie Edwards MD, Medication Removed at 06/18/212157 ??? linezolid (ZYVOX) tablet 600 mg, 600 mg, oral, BID, Emely Moss NP, 600 mg at 06/18/212151 ??? magnesium sulfate 2 g/50 mL in water (premix) 2 g, 2 g, intravenous, Once, Emely Moss NP ??? metroNIDAZOLE (FLAGYL) tablet 500 mg, 500 mg, oral, TID, Emely Moss NP, 500 mg at 06/18/212151 ??? ondansetron ODT (ZOFRAN-ODT) disintegrating tablet 4 mg, 4 mg, oral, Q6H PRN, 4 mg at 06/18/21 0957 OR [DISCONTINUED] ondansetron (ZOFRAN) injection 4 mg, 4 mg, intravenous, Q6H PRN, Yamilet Faustin MD ??? oxyCODONE (ROXICODONE) tablet 5 mg, 5 mg, oral, Q4H PRN, Valarie Edwards MD, 5 mg at 06/19/21 0537 ??? pantoprazole DR (PROTONIX) extended release tablet 40 mg, 40 mg, oral, Daily, Pradeep Palma MD, 40 mg at 06/18/21 0816 ??? polyethylene glycol (MIRALAX) packet 17 g, 17 g, oral, Daily, Samra Hurtado NP, 17 g at 06/17/21 0954 ??? potassium chloride ER (KLOR-CON) extended release tablet 20 mEq, 20 mEq, oral, Once, Emely Moss NP ??? ramelteon (ROZEREM) tablet 8 mg, 8 mg, oral, Nightly PRN, Marco A Ward MD, 8 mg at 06/13/210 ??? senna-docusate (PERICOLACE) 8.6-50 mg per tablet 1 tablet, 1 tablet, oral, BID, Samra Hurtado, SHASHANK, 1 tablet at 06/17/21 0953 ??? sodium chloride 0.9% flush 0.5-20 mL, 0.5-20 mL, intra-catheter, Q8H Louie ANDERSON Connor Patrick, MD, 10 mL at 06/18/21 0647 ??? sodium chloride 0.9% flush 0.5-20 mL, 0.5-20 mL, intra-catheter, PRN, Pradeep Palma MD, 10 mL at 06/11/21 0810 ??? sodium chloride 0.9% flush 0.5-20 mL, 0.5-20 mL, intra-catheter, Q8H JUSTINLouie Connor Patrick, MD, 10 mL at 06/17/21 2039 ??? sodium chloride 0.9% flush 0.5-20 mL, 0.5-20 mL, intra-catheter, PRN, Pradeep Palma MD, 10 mL at 06/18/21 1337 ??? tamsulosin (FLOMAX) extended release capsule 0.4 mg, 0.4 mg, oral, Daily with dinner, Pradeep Palma MD, 0.4 mg at 06/18/21 0816 ??? umeclidinium (INCRUSE ELLIPTA) 62.5 mcg/actuation inhaler 62.5 mcg, 1 puff, inhalation, Daily, Juanita Burks MD, 62.5 mcg at 06/18/21 1144 Diet: Dietary Orders (From admission, onward) Start Ordered 06/15/21 1229 Adult Diet Regular, Restricted; Renal Diet effective now Question Answer Comment ([facility]) Diet type Regular ([facility]) Diet type Restricted Renal: Renal 06/15/21 1228 Is&Os: I/O last 2 completed shifts: In: - Out: 600 [Urine:600] No intake/output data recorded. Physical Exam: 24hr Min/Max: Temp Min: 36.5 ??C (97.7 ??F) Max: 36.9 ??C (98.4 ??F) Pulse Min: 85 Max: 97 BP Min: 118/59 Max: 156/61 Resp Min: 18 Max: 20 SpO2 Min: 88 % Max: 98 % Vitals: 06/19/21 0357 BP: 145/72 Pulse: 86 Resp: 18 Temp: 36.6 ??C (97.9 ??F) SpO2: 96% Constitutional: alert and oriented x3 and no acute distress HEENT: Pupils equal, EOMs grossly normal, mucous membranes moist Respiratory: respirations even and unlabored on 2L NC. Left pleural chest tube to an atrium on -20 suction, no air leak, small amount thin sero-sanguinous drainage. CV: RRR Abdomen: soft, non-distended : indwelling london catheter to gravity with clear, yellow drainage. Skin: warm, well perfused and extremities non-edematous Active and Removed None Labs/Imaging: Recent Labs Lab Units 06/18/21 0941 06/17/21 1012 06/16/21 2315 WBC K/cumm 12.5* 13.5* 13.7* HEMOGLOBIN g/dL 8.5* 8.1* 6.8* HEMATOCRIT % 26.9* 25.4* 22.0* PLATELETS K/cumm 184 174 153 Recent Labs Lab Units 06/19/21 0148 06/18/21 0941 06/16/21 2223 SODIUM mmol/L 142 136 138 POTASSIUM PLASMA mmol/L 3.2* 3.3 3.8 CHLORIDE mmol/L 105 100 102 CO2 mmol/L 28 27 29 BUN SERUM mg/dL 39* 45* 54* CREATININE mg/dL 3.05* 3.30* 3.53* GLUCOSE mg/dL 88 120 123 CALCIUM mg/dL 7.8* 8.2* 8.2* XR Chest 1 View Result Date: 06/11/2021 The current study is compared with the prior radiograph dated CT dated 06/08/2021. Left subclavian atrioventricular pacemaker is noted, the ventricular lead is near the tricuspid valve. Loculated left effusion/empyema appears similar in configuration to CT. Associated patchy opacities may represent atelectasis or pneumonia. The right lung is clear with no pleural effusion. There is no pneumothorax. Cardiomediastinal silhouette is normal and unchanged. Dictated by: Ranulfo Tariq M.D. The radiology attending physician has personally reviewed this study, and had reviewed and/or editedthis written report and agrees with it. Electronically signed by: Saniya Tapia M.D. [place] Outside Reference Result Date: 06/10/2021 These images are for Reference purposes only and have not been reviewed by [facility]. There will be no report generated by a [facility] Radiologist. US Outside Reference Result Date: 06/10/2021 These images are for Reference purposes only and have not been reviewed by [facility]. There will be no report generated by a [facility] Radiologist. XR Outside Reference Result Date: 06/10/2021 These images are for Reference purposes only and have not been reviewed by [facility]. There will be no report generated by a [facility] Radiologist. XR Outside Reference Result Date: 06/10/2021 These images are for Reference purposes only and have not been reviewed by [facility]. There will be no report generated by a [facility] Radiologist. CT Body Outside Consult Result Date: 06/11/2021 1. Moderate left-sided pleural effusion in keeping with known empyema. Left lower lobe opacity could represent atelectasis or pneumonia. Lack of intravenous contrast limits evaluation for pleural andlung enhancement. 2. Aortic arch penetrating atherosclerotic ulcer. [...] images may or may not represent the levelock source data set and thus may contain changes that may lower the accuracy of this second-opinion interpretation. Electronically signed by: Bartolome Kathleen M.D. , PHD CT Body Outside Reference Result Date: 06/10/2021 These images are for Reference purposes only and have not been reviewed by [facility]. There will be no report generated by a [facility] Radiologist. NM Outside Reference Result Date: 06/10/2021 These images are for Reference purposes only and have not been reviewed by [facility]. There will be no report generated by a [facility] Radiologist. Assessment/Plan ALFREDO (acute kidney injury) (CMS/HCC) (HCC) Assessment & Plan -per renal: likely multifactorial. Patient still making adequate urine. -renally dose medications -continue to monitor renal function -trending down -monitor - C/O burning and UA sent-? UTI on rocephin already-F/U culture Anemia Assessment & Plan - monitor - possibly R/T empyema Hypertension Assessment & Plan Has been normotensive while inpatient -Continue Amlodipine, Carvedilol, clonidine - Lisinopril and HCTZ on hold CKD (chronic kidney disease) stage 4, GFR 15-29 ml/min ([facility]) ([facility]) Assessment & Plan At time of admission creat baseline 2.5 - renal following - Avoid other nephrotoxic medications - Monitor labs COPD (chronic obstructive pulmonary disease) ([facility]) ([facility]) Assessment & Plan Wears 2L O2 overnight, has ANDRZEJ - continue home inhaler PVD (peripheral vascular disease) ([facility]) ([facility]) Assessment & Plan S/p peripheral artery angioplasty with stent placement x3. Takes Plavix at home. According to OSH records, last dose was 06/03. - hold Plavix Cardiac pacemaker in situ Assessment & Plan 2/2 symptomatic bradycardia, second degree AV block - on Eliquis (last dose 06/06), unknown why? - hold AC * Empyema ([facility]) ([facility]) Assessment & Plan Empyema without systemic manifestations WBC: 13.5, afebrile. OSH CT shows small to moderate loculated pleural effusion. - s/p L thoracotomy and decortication on 06/12 - micro results from OSH--show gram positive in cocci, moderate growth strept intermedius - ID consult : await final ID recs PT recommending rehab-SW aware and working on [facility] For patients or family members viewing this note through [employer] access programs: This note was written as a communication tool between healthcare providers and may contain technical language, terminology and abbreviations that is difficult to interpret without advanced medical training. If you have questions or concerns regarding what is written in this note, please request to speak with the primary medical team taking care of you or your family member or call your PCP for clarification. Please do not call the cell or pager numbers listed in this note, as the provider they are associated with may no longer be involved in your care. Cosigned by Benny Carpenter MD at 06/19/2021 9:09 AM CDT * Filippo Martinez MD - 06/18/2021 5:36 PM CDT Renal Follow-Up Note Name: Freddy Hill Age: 70 y.o. Patient's Attending Physician: Benny Carpenter* Admit Date: 06/10/2021 8:39 PM Reason For Visit: Empyema New Symptoms - no acute events overnight - VSS - no new complaints - good UOP Brief Hospital course : Mr. Hill is a 70 y/o m w/ PMH of COPD on nightly 2 L O2, CKD stage 3, ANDRZEJ, BA, HTN who was a/w empyema and transferred from [facility] for further Mx I/s/o worsening leukocytosis (42 k ). Underwent thoracotomy and decortication on 06/12. Received abx both at OSH and here. vanc levels elevated. Developed ALFREDO. ?? Renal c/s for ALFREDO ? 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 PCP currently monitoring renal function He recently moved to [place]. . Used to get all his care in [place] at [facility]. No h/o renal stones. He had renal failure once in 2013 at the time of hip replacement. He Was told his kidneys stopped working for 1 week. 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 He had recent labs at [facility] last month He takes lasix as needed at home for leg swelling or weight gain Review of Systems: All other systems reviewed and are negative Physical Examination: Vitals: 06/18/21 1358 06/18/21 1429 06/18/21 1511 06/18/21 1605 BP: 124/58 118/59 125/63 BP Location: Right arm Right arm Right arm Patient Position: Sitting Sitting Lying Pulse: 97 96 92 Resp: 20 Temp: 36.9 ??C (98.4 ??F) TempSrc: Oral SpO2: (!) 88% 92% (!) 88% 97% Weight: Height: General appearance: alert, cooperative, in NAD Head: normocephalic, without trauma Neck: range of motion is intact, Resp : Chest CTA b/l No tenderness on palpation Heart: regular rhythm, normal S1 and S2, 1+ b.l le edema Abdomen: soft without mass, non-tender, Neurologic: mental status normal; alert and oriented X 3; Skin:No rashes noted Dialysis Access Exam: NA Laboratory Data I have personally reviewed the following labs: I/O last 3 completed shifts: In: 372.3 [Blood:372.3] Out: 2665 [Urine:2610; Chest Tube:55] I/O this shift: In: - Out: 175 [Urine:175] Medications-I have personally reviewed the medications listed below: acetaminophen, 1,000 mg, oral, Q6H JUSTIN [Held by Provider] amLODIPine, 10 mg, oral, Daily atorvastatin, 40 mg, oral, Daily carvediloL, 6.25 mg, oral, BID cefTRIAXone, 2,000 mg, intravenous, Q24H JUSTIN [Held by Provider] cloNIDine, 0.1 mg, oral, BID doxepin, 25 mg, oral, Nightly enoxaparin, 30 mg, subcutaneous, Daily-2100 guaiFENesin, 200 mg, oral, QID lactulose, 20 g, oral, TID lidocaine, 2 patch, transdermal, Daily linezolid, 600 mg, oral, BID metroNIDAZOLE, 500 mg, oral, TID pantoprazole DR, 40 mg, oral, Daily polyethylene glycol, 17 g, oral, Daily senna-docusate, 1 tablet, oral, BID sodium chloride 0.9%, 0.5-20 mL, intra-catheter, Q8H JUSTIN sodium chloride 0.9%, 0.5-20 mL, intra-catheter, Q8H JUSTIN tamsulosin, 0.4 mg, oral, Daily with dinner umeclidinium, 1 puff, inhalation, Daily albuterol, 2.5 mg, 2.5 mg at 06/15/21 1532 ??? bisacodyl EC, 10 mg ??? calcium carbonate, 200 mg of elemental calcium, 500 mg at 06/13/212116 ??? HYDROmorphone, 0.2 mg ??? ondansetron ODT, 4 mg, 4 mg at 06/18/21 0957 OR [DISCONTINUED] ondansetron, 4 mg ??? oxyCODONE, 5 mg, 5 mg at 06/18/21 1725 ??? ramelteon, 8 mg, 8 mg at 06/13/212109 ??? sodium chloride 0.9%, 0.5-20 mL, 10 mL at 06/11/21 0810 ??? sodium chloride 0.9%, 0.5-20 mL, 10 mL at 06/18/21 1337 Assessment and Recommendations: # Non oliguric ALFREDO on CKD - no b/l Cr on file. 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 - Cr on admission 2.35 --> 2.4--> 2.8 --> 3.4. - UOP relatively decreased today - Etiology of ALFREDO likely multifactorial - sepsis, hemodynamic changes, medication (vanc toxicity). - vanc trough levels 44.1 on 06/12 and 29.2 on 06/14. - renally dose medications. - obtain renal panel from [facility]. 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 # Hyperkalemia - resolved Discussed with Dr. Chris Martinez Nephrology Fellow Consult 1 Service Contact (phone): [phone] After hours and weekends: please page [phone] Be advised that voice recognition software was used in the production of this record. Errors in interpretation may have been inadvertently missed during review. Cosigned by Genaro Perez MD at 06/19/2021 7:33 AM CDT Associated attestation - Genaro Perez MD - 06/19/2021 7:33 AM CDT I have seen and examined the patient on 06/18/2021. I agree with the findings and plan of care as documented in the resident's/fellow's note.. * Kobe Haines - 06/18/2021 1:58 PM CDT Physical Therapy Progress Note NOTE: This is a summary note of the emery components of the treatment session. For full details, review chart for all flowsheets documented on by this physical therapy clinician on this date. Vital signs documented in vital signs flowsheet. Care plan progress documented in Care Plan Activity. For questions, please review the treatment team and contact the PT or HR ADMINISTRATIVE ASSISTANT currently assigned to this patient. If a physical therapy clinician is not assigned to this patient, please call [phone]. 06/18/21 1358 PT Last Visit Session Type Treatment PT Received On 06/18/21 Safe Environment Arm Band Checked;Call Light within Reach;Notified RN;Overbed Table within Reach (Pt left at edge of bed with call light and table in reach) Subjective Agreeable to Therapy Family/Caregiver Present Yes (Sister) Precautions Precautions Fall risk Activity Tolerance Activity Tolerance Comments Margot: medium Pain Assessment Pain Assessment 0-10 Pain Score 4 Pain Type Surgical pain Pain Location Incision Cognition Arousal/Alertness Alert;Appropriate responses to stimuli Orientation Oriented X4 (person, place, time, situation) Following Commands Follows all commands and directions without difficulty Compliance/Behavior Easy to engage Balance Balance Yes Static Sitting Balance Static Sitting-Balance Support No upper extremity supported;Feet supported Static Sitting-Sitting Surface Bed Static Sitting-Level of Assistance Distant supervision Static Sitting-Comment/# of Minutes Supervision for safety Static Standing Balance Static Standing-Balance Support Bilateral upper extremity supported (WW) Static Standing-Standing Surface Floor Static Standing-Level of Assistance Close supervision Static Standing-Comment/# of Minutes supervision for safety Equipment Use Equipment Use Comments No gait belt used Bed Mobility Bed Mobility No Transfers Transfer Yes Transfer 1 Transfer From 1 Sit Transfer Type 1 To and from Transfer to 1 Stand Technique 1 Sit to stand;Stand to sit Transfer Device 1 No device Transfer Level of Assistance 1 Standby Assist Trials/Comments 1 Supervision for safety; verbal cues for sequence; performed at EOB Transfers 2 Transfer From 2 Toilet Transfer Type 2 To and from Transfer to 2 Stand Technique 2 Sit to stand;Stand to sit Transfer Device 2 No device Transfer Level of Assistance 2 Moderate Assist Trials/Comments 2 Mod A to assist force production and balance Ambulation Ambulation Yes Ambulation 1 Distance (ft) 1 40 Surface 1 Level tile Device 1 Wheeled walker Assistance 1 Contact Guard Assist Gait: Requires assist with 1 Maintaining balance Gait: Requires verbal cues to 1 Use assistive device safely;Prevent bumping into environmental barriers (corea/furniture);Utilize appropriate gait sequencing;Improve upright posture;Pace activity;Utilize pursed lip breathing Quality of Gait 1 Decreased carmella; decreased step length Ambulation Comments 1 Several standing rest breaks 2/2 fatigue Stairs Stairs No Basic Mobility - 6 Click How much difficulty does the patient have: Turning over in bed 4 How much difficulty does the patient currently have: Sitting down and standing up from a chair witharms? 3 How much difficulty does the patient have: Moving from lying on back to sitting on the side of the bed? 3 How much difficulty does the patient have: Moving to and from a bed to a chair including wheelchair? 3 How much help does the patient currently need: Walk in hospital room? 3 How much help from another person does the patient currently need: Climbing 3-5 steps with a railing? 3 Total 6 Click Score (range 6-24) 19 Score Interpretation 42.48 Assessment Prognosis Good Problem List Gait deviations;Decreased endurance;Impaired balance;Decreased mobility;Pain Plan Plan Continue with current plan;If this is the last note, consider this the discharge summary Recommendation/Plan PT Recommendation/Plan Inpatient Rehab Facility PT Frequency 5-7x/wk Treatment/Interventions Balance Training;Endurance training;Gait training;Stair training;Therapeutic activity Progress Progressing toward goals PT - Next Appointment 06/19/21 Multi-Disciplinary Problems (from Physical Therapy) Active Problems Problem: Mobility Start Date: 06/14/21 Goal Start Date Expected End Date End Date STG - Patient will ambulate 06/14/21 06/28/21 -- Goal Details: 200', AAD, SBA Problem: Transfers Start Date: 06/14/21 Goal Start Date Expected End Date End Date STG - Patient to transfer to and from sit to supine 06/14/21 06/28/21 -- Goal Details: SBA Goal Start Date Expected End Date End Date STG - Patient will transfer sit to and from stand 06/14/21 06/28/21 -- Goal Details: SBA Problem: PT Misc Start Date: 06/14/21 Goal Start Date Expected End Date End Date [facility] 06/14/21 07/12/21 -- Goal Details: Pt. Will be independent with all functional mobility Cosigned by Sana Hua PT at 06/18/2021 4:59 PM CDT * Emely Moss NP - 06/18/2021 10:34 AM CDT Thoracic Surgery Daily Progress Note Admit: 06/10/2021 8:39 PM Date: June 18, 2021 Length of Stay: 8 Attending: Benny Carpenter* POD:* No surgery date entered * Procedure(s): THORACOTOMY, decortication Subjective History: Freddy Hill is a 70-year-old male with history of COPD, ANDRZEJ, asthma, HTN, AICD, carotid stenosiss/p R CEA, PAD s/p peripheral artery angioplasty with stent placement of LLE who presents as transfer from outside hospital for management of known left-sided empyema. PMH: COPD, ANDRZEJ, asthma, HTN, AICD, carotid stenosis, PAD, arthritis, CKD stage 3 PSH: AICD placement, ventral hernia repair, bilateral hip replacement, carotid endarterectomy, LLE peripheral artery angioplasty with stent placement, tonsillectomy, adenoidectomy Edited by: Valarie Edwards MD at 06/11/2021 0833 Interval History: Pt reported no issues overnight. He is to cont to work with PT. Await ID final recs Objective Medications: Current Facility-Administered Medications: ??? acetaminophen (TYLENOL) tablet 1,000 mg, 1,000 mg, oral, Q6H Genesis ANDERSON Amanda Leigh, NP, 1,000 mg at 06/18/21 0623 ??? albuterol 2.5 mg/0.5 mL nebulizer solution 2.5 mg, 2.5 mg, nebulization, TID PRN (RT), Talon Resendiz MD, 2.5 mg at 06/15/21 ??? [Held by Provider] amLODIPine (NORVASC) tablet 10 mg, 10 mg, oral, Daily, Marco A Ward MD, 10 mg at 06/15/21 0900 ??? atorvastatin (LIPITOR) tablet 40 mg, 40 mg, oral, Daily, Marco A Ward MD, 40 mg at 06/17/21 0953 ??? bisacodyl EC (DULCOLAX EC) tablet 10 mg, 10 mg, oral, Daily PRN, Pradeep Palma MD ??? calcium carbonate (TUMS) chewable tablet 500 mg, 200 mg of elemental calcium, oral, Daily PRN, Marco A Ward MD, 500 mg at 06/13/212116 ??? carvediloL (COREG) tablet 6.25 mg, 6.25 mg, oral, BID, Emely Moss NP, 6.25 mg at 06/18/21 0816 ??? cefTRIAXone (ROCEPHIN) 2,000 mg/20 mL in sterile water (premix) 2,000 mg, 2,000 mg, intravenous, Q24H JUSTIN, Emely Moss NP, 2,000 mg at 06/18/21 0935 ??? [Held by Provider] cloNIDine (CATAPRES) tablet 0.1 mg, 0.1 mg, oral, BID, Marco A Ward MD, 0.1 mg at 06/15/21 0900 ??? doxepin (SINEquan) capsule 25 mg, 25 mg, oral, Nightly, Marco A Ward MD, 25 mg at 06/17/212038 ??? enoxaparin (LOVENOX) syringe 30 mg, 30 mg, subcutaneous, Daily-2100, Pradeep Palma MD, 30 mg at 06/17/212039 ??? guaiFENesin (ROBITUSSIN) 20 mg/mL oral liquid 200 mg, 200 mg, oral, QID, Milagro Toth NP, 200 mg at 06/18/21 0816 ??? HYDROmorphone (DILAUDID) injection 0.2 mg, 0.2 mg, intravenous, Q4H PRN, Samra Hurtaod NP ??? lactulose 0.67 gram/mL oral solution 20 g, 20 g, oral, TID, Samra Hurtado NP ??? lidocaine (LIDODERM) 5 % patch 2 patch, 2 patch, transdermal, Daily, Valarie Edwards MD, Last Rate: 0 mL/hr at 06/18/21 0400, 2 patch at 06/18/21 0816 ??? linezolid (ZYVOX) tablet 600 mg, 600 mg, oral, BID, Emely Moss NP, 600 mg at 06/18/21 0816 ??? metroNIDAZOLE (FLAGYL) tablet 500 mg, 500 mg, oral, TID, Emely Moss NP, 500 mg at 06/18/21 0816 ??? ondansetron ODT (ZOFRAN-ODT) disintegrating tablet 4 mg, 4 mg, oral, Q6H PRN, 4 mg at 06/17/21 1003 OR [DISCONTINUED] ondansetron (ZOFRAN) injection 4 mg, 4 mg, intravenous, Q6H PRN, Yamilet Faustin MD ??? oxyCODONE (ROXICODONE) tablet 5 mg, 5 mg, oral, Q4H PRN, Valarie Edwards MD, 5 mg at 06/18/21 0638 ??? pantoprazole DR (PROTONIX) extended release tablet 40 mg, 40 mg, oral, Daily, Pradeep Palma MD, 40 mg at 06/18/21 0816 ??? polyethylene glycol (MIRALAX) packet 17 g, 17 g, oral, Daily, Samra Hurtado NP, 17 g at 06/17/21 0954 ??? ramelteon (ROZEREM) tablet 8 mg, 8 mg, oral, Nightly PRN, Marco A Ward MD, 8 mg at 06/13/21 2110 ??? senna-docusate (PERICOLACE) 8.6-50 mg per tablet 1 tablet, 1 tablet, oral, BID, Samra Hurtado NP, 1 tablet at 06/17/21 0953 ??? sodium chloride 0.9% flush 0.5-20 mL, 0.5-20 mL, intra-catheter, Q8H JUSTINLouie Connor Patrick, MD, 10 mL at 06/18/21 0647 ??? sodium chloride 0.9% flush 0.5-20 mL, 0.5-20 mL, intra-catheter, PRN, Pradeep Palma MD, 10 mL at 06/11/21 0810 ??? sodium chloride 0.9% flush 0.5-20 mL, 0.5-20 mL, intra-catheter, Q8H [facility] HEALTHLouie Connor Patrick, MD, 10 mL at 06/17/21 2039 ??? sodium chloride 0.9% flush 0.5-20 mL, 0.5-20 mL, intra-catheter, PRN, Pradeep Palma MD ??? tamsulosin (FLOMAX) extended release capsule 0.4 mg, 0.4 mg, oral, Daily with dinner, Pradeep Palma MD, 0.4 mg at 06/18/21 0816 ??? umeclidinium (INCRUSE ELLIPTA) 62.5 mcg/actuation inhaler 62.5 mcg, 1 puff, inhalation, Daily, Juanita Burks MD, 62.5 mcg at 06/17/21 1041 Diet: Dietary Orders (From admission, onward) Start Ordered 06/15/21 1229 Adult Diet Regular, Restricted; Renal Diet effective now Question Answer Comment ([facility]) Diet type Regular ([facility]) Diet type Restricted Renal: Renal 06/15/21 1228 Is&Os: I/O last 2 completed shifts: In: - Out: 2165 [Urine:2135; Chest Tube:30] No intake/output data recorded. Physical Exam: 24hr Min/Max: Temp Min: 36.4 ??C (97.5 ??F) Max: 36.7 ??C (98.1 ??F) Pulse Min: 78 Max: 94 BP Min: 121/61 Max: 140/63 Resp Min: 18 Max: 22 SpO2 Min: 92 % Max: 98 % Vitals: 06/18/21 0910 BP: Pulse: Resp: Temp: SpO2: 98% Constitutional: alert and oriented x3 and no acute distress HEENT: Pupils equal, EOMs grossly normal, mucous membranes moist Respiratory: respirations even and unlabored on 2L NC. Left pleural chest tube to an atrium on -20 suction, no air leak, small amount thin sero-sanguinous drainage. CV: RRR Abdomen: soft, non-distended : indwelling london catheter to gravity with clear, yellow drainage. Skin: warm, well perfused and extremities non-edematous Active and Removed None Labs/Imaging: Recent Labs Lab Units 06/18/21 0941 06/17/21 1012 06/16/21 2315 WBC K/cumm 12.5* 13.5* 13.7* HEMOGLOBIN g/dL 8.5* 8.1* 6.8* HEMATOCRIT % 26.9* 25.4* 22.0* PLATELETS K/cumm 184 174 153 Recent Labs Lab Units 06/18/21 0941 06/16/21 2223 06/16/21 1409 SODIUM mmol/L 136 138 137 POTASSIUM PLASMA mmol/L 3.3 3.8 4.2 CHLORIDE mmol/L 100 102 99 CO2 mmol/L 27 29 29 BUN SERUM mg/dL 45* 54* 54* CREATININE mg/dL 3.30* 3.53* 3.46* GLUCOSE mg/dL 120 123 93 CALCIUM mg/dL 8.2* 8.2* 8.5 Recent Labs Lab Units 06/11/21 2134 PROTIME (PT) sec 15.7* INR 1.4* XR Chest 1 View Result Date: 06/11/2021 The current study is compared with the prior radiograph dated CT dated 06/08/2021. Left subclavian atrioventricular pacemaker is noted, the ventricular lead is near the tricuspid valve. Loculated left effusion/empyema appears similar in configuration to CT. Associated patchy opacities may represent atelectasis or pneumonia. The right lung is clear with no pleural effusion. There is no pneumothorax. Cardiomediastinal silhouette is normal and unchanged. Dictated by: Ranulfo Tariq M.D. The radiology attending physician has personally reviewed this study, and had reviewed and/or editedthis written report and agrees with it. Electronically signed by: Saniya Tapia M.D. Outside Reference Result Date: 06/10/2021 These images are for Reference purposes only and have not been reviewed by [facility]. There will be no report generated by a [facility] Radiologist. [place] Outside Reference Result Date: 06/10/2021 These images are for Reference purposes only and have not been reviewed by [facility]. There will be no report generated by a [facility] Radiologist. XR Outside Reference Result Date: 06/10/2021 These images are for Reference purposes only and have not been reviewed by [facility]. There will be no report generated by a [facility] Radiologist. XR Outside Reference Result Date: 06/10/2021 These images are for Reference purposes only and have not been reviewed by [facility]. There will be no report generated by a [facility] Radiologist. CT Body Outside Consult Result Date: 06/11/2021 1. Moderate left-sided pleural effusion in keeping with known empyema. Left lower lobe opacity could represent atelectasis or pneumonia. Lack of intravenous contrast limits evaluation for pleural andlung enhancement. 2. Aortic arch penetrating atherosclerotic ulcer. [...] images may or may not represent the levelock source data set and thus may contain changes that may lower the accuracy of this second-opinion interpretation. Electronically signed by: Bartolome Kathleen M.D. , PHD CT Body Outside Reference Result Date: 06/10/2021 These images are for Reference purposes only and have not been reviewed by [facility]. There will be no report generated by a [facility] Radiologist. NM Outside Reference Result Date: 06/10/2021 These images are for Reference purposes only and have not been reviewed by [facility]. There will be no report generated by a [facility] Radiologist. Assessment/Plan ALFREDO (acute kidney injury) (CMS/HCC) ([facility]) Assessment & Plan -per renal: likely multifactorial. Patient still making adequate urine. -renally dose medications -continue to monitor renal function -trending down -monitor Anemia Assessment & Plan - monitor - possibly R/T empyema Hypertension Assessment & Plan Has been normotensive while inpatient -Continue Amlodipine, Carvedilol, clonidine - Lisinopril and HCTZ on hold Hyperkalemia Assessment & Plan - Lisinopril on hold - monitor on tele CKD (chronic kidney disease) stage 4, GFR 15-29 ml/min ([facility]) ([facility]) Assessment & Plan At time of admission creat baseline 2.5 - dc'd vanc due to increase in creatine and vanco level - Avoid other nephrotoxic medications - Monitor labs COPD (chronic obstructive pulmonary disease) ([facility]) ([facility]) Assessment & Plan Wears 2L O2 overnight, has ANDRZEJ - continue home inhaler PVD (peripheral vascular disease) ([facility]) ([facility]) Assessment & Plan S/p peripheral artery angioplasty with stent placement x3. Takes Plavix at home. According to OSH records, last dose was 06/03. - hold Plavix Cardiac pacemaker in situ Assessment & Plan 2/2 symptomatic bradycardia, second degree AV block - on Eliquis (last dose 06/06), unknown why? - hold AC * Empyema ([facility]) ([facility]) Assessment & Plan Empyema without systemic manifestations WBC: 13.5, afebrile. OSH CT shows small to moderate loculated pleural effusion. - s/p L thoracotomy and decortication on 06/12 - micro results from OSH--show gram positive in cocci, moderate growth strept intermedius - ID consult : empiric linezolid PO. Ceftriaxone and flagyl. - remove CT today: follow up post pull chest x-ray - add guaifenesin and flutter valve Emely Moss [facility]- Thoracic Surgery [facility] For patients or family members viewing this note through [employer] programs: This note was written as a communication tool between healthcare providers and may contain technical language, terminology and abbreviations that is difficult to interpret without advanced medical training. If you have questions or concerns regarding what is written in this note, please request to speak with the primary medical team taking care of you or your family member or call your PCP for clarification. Please do not call the cell or pager numbers listed in this note, as the provider they are associated with may no longer be involved in your care. Cosigned by Benny Carpenter MD at 06/19/2021 9:09 AM CDT * Filippo Martinez MD - 06/17/2021 6:35 PM CDT Renal Follow-Up Note Name: Freddy Hill Age: 70 y.o. Patient's Attending Physician: Benny Carpenter* Admit Date: 06/10/2021 8:39 PM Reason For Visit: Empyema New Symptoms - no acute events overnight - VSS - no new complaints - good UOP Brief Hospital course : Mr. Hill is a 70 y/o m w/ PMH of COPD on nightly 2 L O2, CKD stage 3, ANDRZEJ, BA, HTN who was a/w empyema and transferred from [facility] for further Mx I/s/o worsening leukocytosis (42 k ). Underwent thoracotomy and decortication on 06/12. Received abx both at OSH and here. vanc levels elevated. Developed ALFREDO. ?? Renal c/s for ALFREDO ? 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 PCP currently monitoring renal function He recently moved to [place]. . Used to get all his care in [place] at [facility]. No h/o renal stones. He had renal failure once in 2013 at the time of hip replacement. He Was told his kidneys stopped working for 1 week. 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 He had recent labs at [facility] last month He takes lasix as needed at home for leg swelling or weight gain Review of Systems: All other systems reviewed and are negative Physical Examination: Vitals: 06/17/21 0823 06/17/21 1156 06/17/21 1318 06/17/21 1636 BP: 154/70 121/61 135/63 136/96 BP Location: Right arm Right arm Right arm Right arm Patient Position: HOB 30 degrees HOB 30 degrees Sitting Pulse: 89 78 88 83 Resp: 18 18 20 Temp: 36.8 ??C (98.2 ??F) 36.7 ??C (98.1 ??F) 36.6 ??C (97.8 ??F) TempSrc: Oral Oral Oral SpO2: 93% 97% 97% 98% Weight: Height: General appearance: alert, cooperative, in NAD Head: normocephalic, without trauma Neck: range of motion is intact, Resp : Chest CTA b/l No tenderness on palpation Heart: regular rhythm, normal S1 and S2, 1+ b.l le edema Abdomen: soft without mass, non-tender, Neurologic: mental status normal; alert and oriented X 3; Skin:No rashes noted Dialysis Access Exam: NA Laboratory Data I have personally reviewed the following labs: I/O last 3 completed shifts: In: 372.3 [Blood:372.3] Out: 2690 [Urine:2650; Chest Tube:40] I/O this shift: In: - Out: 1490 [Urine:1460; Chest Tube:30] Medications-I have personally reviewed the medications listed below: acetaminophen, 1,000 mg, oral, Q6H JUSTIN [Held by Provider] amLODIPine, 10 mg, oral, Daily atorvastatin, 40 mg, oral, Daily carvediloL, 6.25 mg, oral, BID cefTRIAXone, 2,000 mg, intravenous, Q24H JUSTIN [Held by Provider] cloNIDine, 0.1 mg, oral, BID doxepin, 25 mg, oral, Nightly enoxaparin, 30 mg, subcutaneous, Daily-2100 guaiFENesin, 200 mg, oral, QID lactulose, 20 g, oral, TID lidocaine, 2 patch, transdermal, Daily linezolid, 600 mg, oral, BID metroNIDAZOLE, 500 mg, oral, TID pantoprazole DR, 40 mg, oral, Daily polyethylene glycol, 17 g, oral, Daily senna-docusate, 1 tablet, oral, BID sodium chloride 0.9%, 0.5-20 mL, intra-catheter, Q8H JUSTIN sodium chloride 0.9%, 0.5-20 mL, intra-catheter, Q8H JUSTIN sodium zirconium cyclosilicate, 10 g, oral, TID tamsulosin, 0.4 mg, oral, Daily with dinner umeclidinium, 1 puff, inhalation, Daily albuterol, 2.5 mg, 2.5 mg at 06/15/21 3812 ??? bisacodyl EC, 10 mg ??? calcium carbonate, 200 mg of elemental calcium, 500 mg at 06/13/212116 ??? HYDROmorphone, 0.2 mg ??? ondansetron ODT, 4 mg, 4 mg at 06/17/21 1003 OR [DISCONTINUED] ondansetron, 4 mg ??? oxyCODONE, 5 mg, 5 mg at 06/17/21 1530 ??? ramelteon, 8 mg, 8 mg at 06/13/212109 ??? sodium chloride 0.9%, 0.5-20 mL, 10 mL at 06/11/21 0810 ??? sodium chloride 0.9%, 0.5-20 mL Assessment and Recommendations: # Non oliguric ALFREDO on CKD - no b/l Cr on file. 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 - Cr on admission 2.35 --> 2.4--> 2.8 --> 3.4. - UOP relatively decreased today - Etiology of ALFREDO likely multifactorial - sepsis, hemodynamic changes, medication (vanc toxicity). - vanc trough levels 44.1 on 06/12 and 29.2 on 06/14. - hold vanc. Monitor levels - renally dose medications. - obtain renal panel from [facility]. 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 # Hyperkalemia - resolved Discussed with Dr. Chris Martinez Nephrology Fellow Consult 1 Service Contact (phone): [phone] After hours and weekends: please page [phone] Be advised that voice recognition software was used in the production of this record. Errors in interpretation may have been inadvertently missed during review. Cosigned by Genaro Perez MD at 06/17/2021 7:26 PM CDT Associated attestation - Genaro Perez MD - 06/17/2021 7:26 PM CDT I have seen and examined the patient on 06/17/21. I agree with the findings and plan of care as documented in the resident's/fellow's note.. * Jony Ruiz - 06/17/2021 3:39 PM CDT Spiritual Care Note Quill Cleaner Jony Ruiz [facility], [facility] 06/17/21 1100 Time Spent Start Time 1050 Stop Time 1108 Time Calculation (min) 18 min Patient Spiritual Assessment Spirituality Assessed Focus of Care Clinical Encounter Type Visited With Patient Response Type Routine visit Routine Visit Introduction Reason for visit Support Interventions Interventions Active listening;Explore rashad and values;Offer emotional support;Offer spiritual/jewish support;Prayer * Christal Perez RD - 06/17/2021 1:28 PM CDT Nutrition Screen Note Pt. Screened for nutritional assessment secondary to LOS Past Medical History: Diagnosis Date ??? Anemia ??? Arthritis ??? Asthma ??? AV block Jun 2020 PM insertion ??? Carotid stenosis s/p right CEA ??? CKD (chronic kidney disease) stage 3, GFR 30-59 ml/min ([facility]) ??? Claudication ([facility]) ([facility]) ??? COPD (chronic obstructive pulmonary disease) (CMS/HCC) ([facility]) ??? COVID-19 05/2020 hospitalization 3 days ??? Empyema (CMS/HCC) ([facility]) 05/2020 ??? GERD (gastroesophageal reflux disease) ??? Hyperkalemia ??? Hypertension ??? PAD (peripheral artery disease) (CMS/HCC) ([facility]) ??? Pneumonia 2018 ??? Sleep apnea Past Surgical History: Procedure Laterality Date ??? CAROTID ENARTERECTOMYY Right 2013 ??? COLONOSCOPY ??? HERNIA REPAIR 2016 ventral ??? HIP ARTHROPLASTY Bilateral left 2009, right 2002 ??? INSERT / REPLACE / REMOVE PACEMAKER 06/2020 Medtronic dula lead PM ??? OTHER SURGICAL HISTORY 2020 surgical and endovascular intervention LLE-3 stents ??? TONSILLECTOMY Anthropometrics Weight: 94.6 kg (208 lb 8 oz) Admission Weight : 94.6 kg Weight Change: 2.94 kg (6.50 lbs) IBW/kg (Calculated) : 69.9 kg Height: 172.7 cm (5' 8) Weight in (lb) to have BMI = 25: 164.1 BMI (Calculated): 31.7 Dietary Orders (From admission, onward) Start Ordered 06/15/21 1229 Adult Diet Regular, Restricted; Renal Diet effective now Question Answer Comment ([facility]) Diet type Regular ([facility]) Diet type Restricted Renal: Renal 06/15/21 1228 Assessment / Impression: Pt states wt is stable, CBW 208#(06/10). Intake usually >75% of meals and snacks on a Regular Renal diet. Last BM: 06/17 per pt. Pt states he had not had a BM for 10 days,so he is feeling better. 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 Pt continues on bowel regimen. No complaints of N/V/D. No significant skin integrity issues, noted surgical sites clean and dry per documentation. Appears to be well nourished on current plan and meeting needs. Labs 06/16 BUN 54H, Cr 3.53H, GFR 17L. Will continue to monitor per standards of care. Christal Perez MS, RD, LD [phone] * Mayelin To, PT - 06/17/2021 1:18 PM CDT Physical Therapy Progress Note NOTE: This is a summary note of the emery components of the treatment session. For full details, review chart for all flowsheets documented on by this physical therapy clinician on this date. Vital signs documented in vital signs flowsheet. Care plan progress documented in Care Plan Activity. For questions, please review the treatment team and contact the PT or HR ADMINISTRATIVE ASSISTANT currently assigned to this patient. If a physical therapy clinician is not assigned to this patient, please call [phone]. 06/17/21 1318 PT Last Visit Session Type Treatment PT Received On 06/17/21 Safe Environment Arm Band Checked;Call Light within Reach;Notified RN;Patient found sitting in Chair;Overbed Table within Reach (In chair with all needs met after session) Subjective Agreeable to Therapy Subjective Comment Pt sitting in the chair upon therapist arrival in NAD. Pt agreeable to treatmentsession. Family/Caregiver Present No Precautions Precautions Fall risk;ANDRZEJ Activity Tolerance Activity Tolerance Comments Margot: Hard Pain Assessment Pain Assessment 0-10 Pain Score 4 Pain Location (Chest tube site) Pain Interventions RN Notified Cognition Orientation Oriented X4 (person, place, time, situation) Balance Balance Yes Static Standing Balance Static Standing-Balance Support Bilateral upper extremity supported Static Standing-Standing Surface Floor Static Standing-Level of Assistance Close supervision Static Standing-Comment/# of Minutes For safety Bed Mobility Bed Mobility No Transfers Transfer Yes (Gait belt not used due to lines/tubes) Transfer 1 Transfer From 1 Sit Transfer Type 1 To and from Transfer to 1 Stand Technique 1 Sit to stand;Stand to sit Transfer Device 1 No device Transfer Level of Assistance 1 Contact Guard Assist Trials/Comments 1 For safety and to ensure balance Transfers 2 Transfer From 2 Chair with arms Transfer Type 2 To and from Transfer to 2 Bed Technique 2 (Stand and step) Transfer Device 2 Hand held assist Transfer Level of Assistance 2 Minimum Assist Trials/Comments 2 For safety and balance Ambulation Functional Ambulation Category 2 Ambulation Yes Ambulation 1 Distance (ft) 1 40 Surface 1 Level tile Device 1 Other (comments) (Pushing w/c) Assistance 1 Contact Guard Assist Gait: Requires assist with 1 Maintaining balance Gait: Requires verbal cues to 1 Use assistive device safely;Utilize appropriate gait sequencing;Improve upright posture;Increase step length;Pace activity;Utilize pursed lip breathing Quality of Gait 1 Decreased carmella, decreased step length, decreased step height Other Comments Other PT Comments The patient is motivated to participate in skilled PT and demonstrates progress towards short term goals. Patient would benefit from continuing skilled PT to promote highest level of function with all mobility. Basic Mobility - 6 Click How much difficulty does the patient have: Turning over in bed 3 How much difficulty does the patient currently have: Sitting down and standing up from a chair witharms? 3 How much difficulty does the patient have: Moving from lying on back to sitting on the side of the bed? 3 How much difficulty does the patient have: Moving to and from a bed to a chair including wheelchair? 3 How much help does the patient currently need: Walk in hospital room? 3 How much help from another person does the patient currently need: Climbing 3-5 steps with a railing? 3 Total 6 Click Score (range 6-24) 18 Score Interpretation 41.05 Assessment Prognosis Good Problem List Gait deviations;Decreased strength;Decreased endurance;Impaired balance;Decreased mobility Plan Plan Continue with current plan;If this is the last note, consider this the discharge summary Recommendation/Plan PT Recommendation/Plan Inpatient Rehab Facility PT Frequency 5-7x/wk Treatment/Interventions Balance Training;Bed mobility;Endurance training;Functional activity;Functional transfer training;Gait training;Neuromuscular re-education;Strengthening;Therapeutic activity;Th erapeutic exercise;Transfer training Progress Progressing toward goals PT - Next Appointment 06/18/21 Multi-Disciplinary Problems (from Physical Therapy) Active Problems Problem: Mobility Start Date: 06/14/21 Goal Start Date Expected End Date End Date STG - Patient will ambulate 06/14/21 06/28/21 -- Goal Details: 200', AAD, SBA Problem: Transfers Start Date: 06/14/21 Goal Start Date Expected End Date End Date STG - Patient to transfer to and from sit to supine 06/14/21 06/28/21 -- Goal Details: SBA Goal Start Date Expected End Date End Date STG - Patient will transfer sit to and from stand 06/14/21 06/28/21 -- Goal Details: SBA Problem: PT Misc Start Date: 06/14/21 Goal Start Date Expected End Date End Date PT LTG - Misc 1 06/14/21 07/12/21 -- Goal Details: Pt. Will be independent with all functional mobility * Milagro Toth NP - 06/17/2021 12:36 PM CDT Thoracic Surgery Daily Progress Note Admit: 06/10/2021 8:39 PM Date: June 17, 2021 Length of Stay: 7 Attending: Benny Carpenter* POD:* No surgery date entered * Procedure(s): THORACOTOMY, decortication Subjective History: Freddy Hill is a 70-year-old male with history of COPD, ANDRZEJ, asthma, HTN, AICD, carotid stenosiss/p R CEA, PAD s/p peripheral artery angioplasty with stent placement of LLE who presents as transfer from outside hospital for management of known left-sided empyema. PMH: COPD, ANDRZEJ, asthma, HTN, AICD, carotid stenosis, PAD, arthritis, CKD stage 3 PSH: AICD placement, ventral hernia repair, bilateral hip replacement, carotid endarterectomy, LLE peripheral artery angioplasty with stent placement, tonsillectomy, adenoidectomy Edited by: Valarie Edwards MD at 06/11/2021 0455 Interval History: Pt reported no issues overnight. He denied shortness of breath, chest pain or nausea. Dr. Montes De Oca discussed the plan of care today and his questions were answered. Will plan to remove the chest tube; follow up on renal and ID recommendations. Discharge planning in progress. Objective Medications: Current Facility-Administered Medications: ??? acetaminophen (TYLENOL) tablet 1,000 mg, 1,000 mg, oral, Q6H JUSTIN, Samra Hurtado NP, 1,000 mg at 06/17/21 1208 ??? albuterol 2.5 mg/0.5 mL nebulizer solution 2.5 mg, 2.5 mg, nebulization, TID PRN (RT), Talon Resendiz MD, 2.5 mg at 06/15/21 2252 ??? [Held by Provider] amLODIPine (NORVASC) tablet 10 mg, 10 mg, oral, Daily, Marco A Ward MD, 10 mg at 06/15/21 0900 ??? atorvastatin (LIPITOR) tablet 40 mg, 40 mg, oral, Daily, Marco A Ward MD, 40 mg at 06/17/21 0953 ??? bisacodyl EC (DULCOLAX EC) tablet 10 mg, 10 mg, oral, Daily PRN, Pradeep Palma MD ??? calcium carbonate (TUMS) chewable tablet 500 mg, 200 mg of elemental calcium, oral, Daily PRN, Marco A Ward MD, 500 mg at 06/13/21 2117 ??? carvediloL (COREG) tablet 6.25 mg, 6.25 mg, oral, BID, Emely Moss NP, 6.25 mg at 06/17/21 0953 ??? cefTRIAXone (ROCEPHIN) 2,000 mg/20 mL in sterile water (premix) 2,000 mg, 2,000 mg, intravenous, Q24H JUSTIN, Emely Moss NP, 2,000 mg at 06/17/21 1041 ??? [Held by Provider] cloNIDine (CATAPRES) tablet 0.1 mg, 0.1 mg, oral, BID, Marco A Ward MD, 0.1 mg at 06/15/21 0900 ??? doxepin (SINEquan) capsule 25 mg, 25 mg, oral, Nightly, Marco A Ward MD, 25 mg at 06/16/212200 ??? enoxaparin (LOVENOX) syringe 30 mg, 30 mg, subcutaneous, Daily-2100, Pradeep Palma MD, 30 mg at 06/16/212200 ??? HYDROmorphone (DILAUDID) injection 0.2 mg, 0.2 mg, intravenous, Q4H PRN, Samra Hurtado NP ??? lactulose 0.67 gram/mL oral solution 20 g, 20 g, oral, TID, Samra Hurtado NP ??? lidocaine (LIDODERM) 5 % patch 2 patch, 2 patch, transdermal, Daily, Valarie Edwards MD, Last Rate: 0 mL/hr at 06/16/212202, 2 patch at 06/17/21 0954 ??? linezolid (ZYVOX) tablet 600 mg, 600 mg, oral, BID, Emely Moss NP, 600 mg at 06/17/21 0953 ??? metroNIDAZOLE (FLAGYL) tablet 500 mg, 500 mg, oral, TID, Emely Moss NP, 500 mg at 06/17/21 0953 ??? ondansetron ODT (ZOFRAN-ODT) disintegrating tablet 4 mg, 4 mg, oral, Q6H PRN, 4 mg at 06/17/21 1003 OR [DISCONTINUED] ondansetron (ZOFRAN) injection 4 mg, 4 mg, intravenous, Q6H PRN, Yamilet Faustin MD ??? oxyCODONE (ROXICODONE) tablet 5 mg, 5 mg, oral, Q4H PRN, Valarie Edwards MD, 5 mg at 06/17/21 0953 ??? pantoprazole DR (PROTONIX) extended release tablet 40 mg, 40 mg, oral, Daily, Pradeep Palma MD, 40 mg at 06/17/21 0954 ??? polyethylene glycol (MIRALAX) packet 17 g, 17 g, oral, Daily, Samra Hurtado NP, 17 g at 06/17/21 0954 ??? ramelteon (ROZEREM) tablet 8 mg, 8 mg, oral, Nightly PRN, Marco A Ward MD, 8 mg at 06/13/21 2110 ??? senna-docusate (PERICOLACE) 8.6-50 mg per tablet 1 tablet, 1 tablet, oral, BID, Samra Hurtado NP, 1 tablet at 06/17/21 0953 ??? sodium chloride 0.9% flush 0.5-20 mL, 0.5-20 mL, intra-catheter, Q8H JUSTIN, Pradeep Palma MD, 10 mL at 06/17/21 0616 ??? sodium chloride 0.9% flush 0.5-20 mL, 0.5-20 mL, intra-catheter, PRN, Pradeep Palma MD, 10 mL at 06/11/21 0810 ??? sodium chloride 0.9% flush 0.5-20 mL, 0.5-20 mL, intra-catheter, Q8H JUSTIN, Pradeep Palma MD, 10 mL at 06/16/21 1400 ??? sodium chloride 0.9% flush 0.5-20 mL, 0.5-20 mL, intra-catheter, PRN, Pradeep Palma MD ??? sodium zirconium cyclosilicate (LOKELMA) packet 10 g, 10 g, oral, TID, Karla Meneses MD, 10 g at 06/17/21 0754 ??? tamsulosin (FLOMAX) extended release capsule 0.4 mg, 0.4 mg, oral, Daily with dinner, Pradeep Palma MD, 0.4 mg at 06/17/21 0953 ??? umeclidinium (INCRUSE ELLIPTA) 62.5 mcg/actuation inhaler 62.5 mcg, 1 puff, inhalation, Daily, Juanita Burks MD, 62.5 mcg at 06/17/21 1041 Diet: Dietary Orders (From admission, onward) Start Ordered 06/15/21 1229 Adult Diet Regular, Restricted; Renal Diet effective now Question Answer Comment ([facility]) Diet type Regular ([facility]) Diet type Restricted Renal: Renal 06/15/21 1228 Is&Os: I/O last 2 completed shifts: In: 372.3 [Blood:372.3] Out: 1825 [Urine:1800; Chest Tube:25] I/O this shift: In: - Out: 660 [Urine:630; Chest Tube:30] Physical Exam: 24hr Min/Max: Temp Min: 36.6 ??C (97.8 ??F) Max: 36.9 ??C (98.4 ??F) Pulse Min: 78 Max: 94 BP Min: 115/61 Max: 154/70 Resp Min: 16 Max: 24 SpO2 Min: 93 % Max: 97 % Vitals: 06/17/21 1156 BP: 121/61 Pulse: 78 Resp: 18 Temp: 36.7 ??C (98.1 ??F) SpO2: 97% Constitutional: alert and oriented x3 and no acute distress HEENT: Pupils equal, EOMs grossly normal, mucous membranes moist Respiratory: respirations even and unlabored on 2L NC. Left pleural chest tube to an atrium on -20 suction, no air leak, small amount thin sero-sanguinous drainage. CV: RRR Abdomen: soft, non-distended : indwelling london catheter to gravity with clear, yellow drainage. Skin: warm, well perfused and extremities non-edematous Active and Removed None Labs/Imaging: Recent Labs Lab Units 06/17/21 1012 06/16/21 2315 06/16/21 2223 WBC K/cumm 13.5* 13.7* 16.1* HEMOGLOBIN g/dL 8.1* 6.8* 6.1* HEMATOCRIT % 25.4* 22.0* 19.8* PLATELETS K/cumm 174 153 197 Recent Labs Lab Units 06/16/21 2223 06/16/21 1409 06/15/21 2155 SODIUM mmol/L 138 137 136 POTASSIUM PLASMA mmol/L 3.8 4.2 5.0* CHLORIDE mmol/L 102 99 101 CO2 mmol/L 29 29 26 BUN SERUM mg/dL 54* 54* 56* CREATININE mg/dL 3.53* 3.46* 3.45* GLUCOSE mg/dL 123 93 141 CALCIUM mg/dL 8.2* 8.5 8.7 Recent Labs Lab Units 06/11/21 2134 PROTIME (PT) sec 15.7* INR 1.4* XR Chest 1 View Result Date: 06/11/2021 The current study is compared with the prior radiograph dated CT dated 06/08/2021. Left subclavian atrioventricular pacemaker is noted, the ventricular lead is near the tricuspid valve. Loculated left effusion/empyema appears similar in configuration to CT. Associated patchy opacities may represent atelectasis or pneumonia. The right lung is clear with no pleural effusion. There is no pneumothorax. Cardiomediastinal silhouette is normal and unchanged. Dictated by: Ranulfo Tariq M.D. The radiology attending physician has personally reviewed this study, and had reviewed and/or editedthis written report and agrees with it. Electronically signed by: Saniya Tapia M.D. [place] Outside Reference Result Date: 06/10/2021 These images are for Reference purposes only and have not been reviewed by [facility]. There will be no report generated by a [facility] Radiologist. [place] Outside Reference Result Date: 06/10/2021 These images are for Reference purposes only and have not been reviewed by [facility]. There will be no report generated by a [facility] Radiologist. XR Outside Reference Result Date: 06/10/2021 These images are for Reference purposes only and have not been reviewed by [facility]. There will be no report generated by a [facility] Radiologist. XR Outside Reference Result Date: 06/10/2021 These images are for Reference purposes only and have not been reviewed by [facility]. There will be no report generated by a [facility] Radiologist. CT Body Outside Consult Result Date: 06/11/2021 1. Moderate left-sided pleural effusion in keeping with known empyema. Left lower lobe opacity could represent atelectasis or pneumonia. Lack of intravenous contrast limits evaluation for pleural andlung enhancement. 2. Aortic arch penetrating atherosclerotic ulcer. [...] images may or may not represent the [place] source data set and thus may contain changes that may lower the accuracy of this second-opinion interpretation. Electronically signed by: Bartolome Kathleen M.D. , PHD CT Body Outside Reference Result Date: 06/10/2021 These images are for Reference purposes only and have not been reviewed by [facility]. There will be no report generated by a [facility] Radiologist. [place] Outside Reference Result Date: 06/10/2021 These images are for Reference purposes only and have not been reviewed by [facility]. There will be no report generated by a [facility] Radiologist. Assessment/Plan * Empyema ([facility]) ([facility]) Assessment & Plan Empyema without systemic manifestations WBC: 13.5, afebrile. OSH CT shows small to moderate loculated pleural effusion. - s/p L thoracotomy and decortication on 06/12 - micro results from OSH--show gram positive in cocci, moderate growth strept intermedius - ID consult : empiric linezolid PO. Ceftriaxone and flagyl. - remove CT today: follow up post pull chest x-ray - add guaifenesin and flutter valve CKD (chronic kidney disease) stage 4, GFR 15-29 ml/min ([facility]) ([facility]) Assessment & Plan At time of admission creat baseline 2.5 - dc'd vanc due to increase in creatine and vanco level - Avoid other nephrotoxic medications - daily BMP - discharge appearing as pus reported from london insertion site: will remove london at this time. May need to be reinserted. Continue to follow creatinine ALFREDO (acute kidney injury) ([facility]) ([facility]) Assessment & Plan -per renal: likely multifactorial. Patient still making adequate urine. -renally dose medications -continue to monitor renal function Anemia Assessment & Plan - monitor - possibly R/T empyema Hypertension Assessment & Plan Has been normotensive while inpatient -Continue Amlodipine, Carvedilol, clonidine - Lisinopril and HCTZ on hold Hyperkalemia Assessment & Plan - Lisinopril on hold - AM BMP - monitor on tele COPD (chronic obstructive pulmonary disease) ([facility]) ([facility]) Assessment & Plan Wears 2L O2 overnight, has ANDRZEJ - continue home inhaler PVD (peripheral vascular disease) ([facility]) ([facility]) Assessment & Plan S/p peripheral artery angioplasty with stent placement x3. Takes Plavix at home. According to OSH records, last dose was 06/03. - hold Plavix Cardiac pacemaker in situ Assessment & Plan 2/2 symptomatic bradycardia, second degree AV block - on Eliquis (last dose 06/06), unknown why? - hold SUMMER Toth RN, MSN, ACNP- For patients or family members viewing this note through [employer] programs: This note was written as a communication tool between healthcare providers and may contain technical language, terminology and abbreviations that is difficult to interpret without advanced medical training. If you have questions or concerns regarding what is written in this note, please request to speak with the primary medical team taking care of you or your family member or call your PCP for clarification. Please do not call the cell or pager numbers listed in this note, as the provider they are associated with may no longer be involved in your care. Cosigned by Benny Carpenter MD at 06/19/2021 9:11 AM CDT * Marco A Ward MD - 06/16/2021 10:29 AM CDT Thoracic Surgery Daily Progress Note Admit: 06/10/2021 8:39 PM Date: June 16, 2021 Length of Stay: 6 Attending: Benny Carpenter* POD:* No surgery date entered * Procedure(s): THORACOTOMY, decortication Subjective History: Freddy Hill is a 70-year-old male with history of COPD, ANDRZEJ, asthma, HTN, AICD, carotid stenosiss/p R CEA, PAD s/p peripheral artery angioplasty with stent placement of LLE who presents as transfer from outside hospital for management of known left-sided empyema. PMH: COPD, ANDRZEJ, asthma, HTN, AICD, carotid stenosis, PAD, arthritis, CKD stage 3 PSH: AICD placement, ventral hernia repair, bilateral hip replacement, carotid endarterectomy, LLE peripheral artery angioplasty with stent placement, tonsillectomy, adenoidectomy Edited by: Valarie Edwards MD at 06/11/2021 0455 Interval History: Worsening ALFREDO over the last 24 hours with creatinine 2.45 -> 2.83 > 3.43, but appears to be stabilizing given most recent creatinine of 3.45. Renal providing recommendations re: management of ALFREDO and hyperkalemia. Patient does not require [employer] at this time. Received lasix 40mg IV. Pain:controlled Nausea: No Flatus: Yes Bowel Movement: Yes Objective Medications: Current Facility-Administered Medications: ??? acetaminophen (TYLENOL) tablet 650 mg, 650 mg, oral, Q6H PRN, Valarie Edwards MD, 650 mg at 06/16/21 0441 ??? albuterol 2.5 mg/0.5 mL nebulizer solution 2.5 mg, 2.5 mg, nebulization, TID PRN (RT), Talon Resendiz MD, 2.5 mg at 06/15/212251 ??? [Held by Provider] amLODIPine (NORVASC) tablet 10 mg, 10 mg, oral, Daily, Marco A Ward MD, 10 mg at 06/15/21 0900 ??? atorvastatin (LIPITOR) tablet 40 mg, 40 mg, oral, Daily, Marco A Ward MD, 40 mg at 06/15/21 0900 ??? bisacodyl EC (DULCOLAX EC) tablet 10 mg, 10 mg, oral, Daily PRN, Pradeep Palma MD ??? calcium carbonate (TUMS) chewable tablet 500 mg, 200 mg of elemental calcium, oral, Daily PRN, Marco A Ward MD, 500 mg at 06/13/212116 ??? carvediloL (COREG) tablet 6.25 mg, 6.25 mg, oral, BID, Emely Moss NP, 6.25 mg at 06/16/21 0840 ??? cefTRIAXone (ROCEPHIN) 2,000 mg/20 mL in sterile water (premix) 2,000 mg, 2,000 mg, intravenous, Q24H JUSTIN, Emely Moss NP, 2,000 mg at 06/15/21 1538 ??? [Held by Provider] cloNIDine (CATAPRES) tablet 0.1 mg, 0.1 mg, oral, BID, Marco A Ward MD, 0.1 mg at 06/15/21 0900 ??? doxepin (SINEquan) capsule 25 mg, 25 mg, oral, Nightly, Marco A Ward MD, 25 mg at 06/15/212014 ??? enoxaparin (LOVENOX) syringe 30 mg, 30 mg, subcutaneous, Daily-2100, Pradeep Palma MD, 30 mg at 06/15/212015 ??? lidocaine (LIDODERM) 5 % patch 2 patch, 2 patch, transdermal, Daily, Valarie Edwards MD, Last Rate: 0 mL/hr at 06/15/21 1315, 2 patch at 06/16/21 0842 ??? linezolid (ZYVOX) tablet 600 mg, 600 mg, oral, BID, Emely Moss NP, 600 mg at 06/16/21 0840 ??? metroNIDAZOLE (FLAGYL) tablet 500 mg, 500 mg, oral, TID, Emely Moss NP, 500 mg at 06/16/21 0840 ??? ondansetron ODT (ZOFRAN-ODT) disintegrating tablet 4 mg, 4 mg, oral, Q6H PRN, 4 mg at 06/14/21 1138 OR [DISCONTINUED] ondansetron (ZOFRAN) injection 4 mg, 4 mg, intravenous, Q6H PRN, Yamilet Faustin MD ??? oxyCODONE (ROXICODONE) tablet 5 mg, 5 mg, oral, Q4H PRN, Valarie Edwards MD, 5 mg at 06/16/21320 ??? pantoprazole DR (PROTONIX) extended release tablet 40 mg, 40 mg, oral, Daily, Pradeep Palma MD, 40 mg at 06/16/21 0840 ??? polyethylene glycol (MIRALAX) packet 17 g, 17 g, oral, Daily PRN, Juanita Burks MD, 17 g at 06/14/21956 ??? ramelteon (ROZEREM) tablet 8 mg, 8 mg, oral, Nightly PRN, Marco A Ward MD, 8 mg at 06/13/212109 ??? senna 1.76 mg/mL syrup 8.8 mg, 8.8 mg, oral, BID PRN, Juanita Burks MD, 8.8 mg at 06/14/21956 ??? sodium chloride 0.9% flush 0.5-20 mL, 0.5-20 mL, intra-catheter, Q8H JUSTIN, Pradeep Palma MD, 10 mL at 06/15/212016 ??? sodium chloride 0.9% flush 0.5-20 mL, 0.5-20 mL, intra-catheter, PRN, Pradeep Palma MD, 10 mL at 06/11/2110 ??? sodium chloride 0.9% flush 0.5-20 mL, 0.5-20 mL, intra-catheter, Q8H JUSTIN, Pradeep Palma MD, 10 mL at 06/16/21418 ??? sodium chloride 0.9% flush 0.5-20 mL, 0.5-20 mL, intra-catheter, PRN, Pradeep Palma MD ??? sodium zirconium cyclosilicate (LOKELMA) packet 10 g, 10 g, oral, TID, Karla Meneses MD, 10 g at 06/16/21418 ??? tamsulosin (FLOMAX) extended release capsule 0.4 mg, 0.4 mg, oral, Daily with dinner, Pradeep Palma MD, 0.4 mg at 06/16/21 0840 ??? umeclidinium (INCRUSE ELLIPTA) 62.5 mcg/actuation inhaler 62.5 mcg, 1 puff, inhalation, Daily, Juanita Burks MD, 62.5 mcg at 06/15/21 0905 Diet: Dietary Orders (From admission, onward) Start Ordered 06/15/21 1229 Adult Diet Regular, Restricted; Renal Diet effective now Question Answer Comment ([facility]) Diet type Regular ([facility]) Diet type Restricted Renal: Renal 06/15/21 1228 Is&Os: I/O last 2 completed shifts: In: 20 [I.V.:20] Out: 2220 [Urine:2140; Chest Tube:80] I/O this shift: In: - Out: 350 [Urine:350] Physical Exam: 24hr Min/Max: Temp Min: 36.5 ??C (97.7 ??F) Max: 36.9 ??C (98.5 ??F) Pulse Min: 80 Max: 96 BP Min: 97/53 Max: 135/74 Resp Min: 18 Max: 20 SpO2 Min: 90 % Max: 99 % Vitals: 06/16/21 0800 BP: 97/53 Pulse: 93 Resp: 18 Temp: 36.7 ??C (98 ??F) SpO2: 99% Constitutional: alert and oriented x3 and no acute distress HEENT: Pupils equal, EOMs grossly normal, mucous membranes moist Respiratory: clear to auscultation bilaterally and respirations unlabored on 2L NC Abdomen: soft, non-distended Skin: warm, well perfused and extremities non-edematous Active and Removed None Labs/Imaging: Recent Labs Lab Units 06/15/21215406/14/21203206/14/21 0022 WBC K/cumm 18.4* 21.0* 25.8* HEMOGLOBIN g/dL 7.5* 7.2* 7.3* HEMATOCRIT % 23.9* 23.4* 24.0* PLATELETS K/cumm 200 182 222 Recent Labs Lab Units 06/15/21215406/15/21 1047 06/14/212032 SODIUM mmol/L 136 136 136 POTASSIUM PLASMA mmol/L 5.0* 5.2* 5.2* CHLORIDE mmol/L 101 99 103 CO2 mmol/L 26 26 25 BUN SERUM mg/dL 56* 55* 56* CREATININE mg/dL 3.45* 3.43* 3.02* GLUCOSE mg/dL 141 156 127 CALCIUM mg/dL 8.7 8.5 8.3* Recent Labs Lab Units 06/11/214 PROTIME (PT) sec 15.7* INR 1.4* XR Chest 1 View Result Date: 06/11/2021 The current study is compared with the prior radiograph dated CT dated 06/08/2021. Left subclavian atrioventricular pacemaker is noted, the ventricular lead is near the tricuspid valve. Loculated left effusion/empyema appears similar in configuration to CT. Associated patchy opacities may represent atelectasis or pneumonia. The right lung is clear with no pleural effusion. There is no pneumothorax. Cardiomediastinal silhouette is normal and unchanged. Dictated by: Ranulfo Tariq M.D. The radiology attending physician has personally reviewed this study, and had reviewed and/or editedthis written report and agrees with it. Electronically signed by: Saniya Tapia M.D. [place] Outside Reference Result Date: 06/10/2021 These images are for Reference purposes only and have not been reviewed by [facility]. There will be no report generated by a [facility] Radiologist. [place] Outside Reference Result Date: 06/10/2021 These images are for Reference purposes only and have not been reviewed by [facility]. There will be no report generated by a [facility] Radiologist. XR Outside Reference Result Date: 06/10/2021 These images are for Reference purposes only and have not been reviewed by [facility]. There will be no report generated by a [facility] Radiologist. XR Outside Reference Result Date: 06/10/2021 These images are for Reference purposes only and have not been reviewed by [facility]. There will be no report generated by a [facility] Radiologist. CT Body Outside Consult Result Date: 06/11/2021 1. Moderate left-sided pleural effusion in keeping with known empyema. Left lower lobe opacity could represent atelectasis or pneumonia. Lack of intravenous contrast limits evaluation for pleural andlung enhancement. 2. Aortic arch penetrating atherosclerotic ulcer. [...] images may or may not represent the [place] source data set and thus may contain changes that may lower the accuracy of this second-opinion interpretation. Electronically signed by: Bartolome Kathleen M.D. , PHD CT Body Outside Reference Result Date: 06/10/2021 These images are for Reference purposes only and have not been reviewed by [facility]. There will be no report generated by a [facility] Radiologist. [place] Outside Reference Result Date: 06/10/2021 These images are for Reference purposes only and have not been reviewed by [facility]. There will be no report generated by a [facility] Radiologist. Assessment/Plan ALFREDO (acute kidney injury) ([facility]) ([facility]) Assessment & Plan -per renal: likely multifactorial. Patient still making adequate urine. -renally dose medications -continue to monitor renal function Anemia Assessment & Plan - monitor - possibly R/T empyema Hypertension Assessment & Plan Has been normotensive while inpatient -Continue Amlodipine, Carvedilol, clonidine - Lisinopril and HCTZ on hold Hyperkalemia Assessment & Plan - Lisinopril on hold - AM BMP - monitor on tele - per renal: lokelma 10mg TID until normalized then 10mg daily thereafter CKD (chronic kidney disease) stage 4, GFR 15-29 ml/min ([facility]) ([facility]) Assessment & Plan At time of admission creat baseline 2.5 - dc'd vanc due to increase in creatine and vanco level - Avoid other nephrotoxic medications - daily BMP - keep london due to rising creatine COPD (chronic obstructive pulmonary disease) ([facility]) ([facility]) Assessment & Plan Wears 2L O2 overnight, has ANDRZEJ - continue home inhaler PVD (peripheral vascular disease) ([facility]) ([facility]) Assessment & Plan S/p peripheral artery angioplasty with stent placement x3. Takes Plavix at home. According to OSH records, last dose was 06/03. - hold Plavix Cardiac pacemaker in situ Assessment & Plan 2/2 symptomatic bradycardia, second degree AV block - on Eliquis (last dose 06/06), unknown why? - hold AC * Empyema ([facility]) ([facility]) Assessment & Plan Empyema without systemic manifestations WBC: 18.6, afebrile. OSH CT shows small to moderate loculated pleural effusion. - s/p L thoracotomy and decortication on 06/12 - micro results from OSH--show gram positive in cocci, moderate growth strept intermedius - ID consult : empiric linezolid PO. Ceftriaxone and flagyl. Emely Moss ACN- Thoracic Surgery [facility] For patients or family members viewing this note through [employer] programs: This note was written as a communication tool between healthcare providers and may contain technical language, terminology and abbreviations that is difficult to interpret without advanced medical training. If you have questions or concerns regarding what is written in this note, please request to speak with the primary medical team taking care of you or your family member or call your PCP for clarification. Please do not call the cell or pager numbers listed in this note, as the provider they are associated with may no longer be involved in your care. Cosigned by Benny Carpenter MD at 06/19/2021 9:10 AM CDT * Emely Moss NP - 06/15/2021 10:30 AM CDT Nurse came in and talked to FREIGHT CLERK that PT walked patient ane he is very dizzy, lightheaded and lethargic. Went to assess pateint and he will wake up and talk but goes right back to sleep. Last pain medication oral oxy 5mg at about 8AM but he had been tolerating that all weekend. He was on 6l/m of O2 for a prolong period this weekend for unknown reasons and was turned back to 2l/m this AM. Per PT he was orthostatic with sys in the 130's and then dropped to the 90's when done. O2 sats perPT dropped a little but not bad and was turned up to 4l/m while walking but has now been turned back down. His creatine went up to 3.02 last night due to vanco that had been given and his trough was in the 40's and then the 30's the next day. vanco has been on hold. He is having some generalized swelling and will monitor closely. If creatine is higher will consult renal. Due to new lethargy will get labs, ABG and update Dr. Lujan. Cosigned by Benny Carpenter MD at 06/16/2021 7:33 AM CDT Associated attestation - Benny Carpenter MD - 06/16/2021 7:33 AM CDT I agree with the assessment and plan as written in the note. * Kobe Haines - 06/15/2021 9:19 AM CDT Physical Therapy Progress Note NOTE: This is a summary note of the emery components of the treatment session. For full details, review chart for all flowsheets documented on by this physical therapy clinician on this date. Vital signs documented in vital signs flowsheet. Care plan progress documented in Care Plan Activity. For questions, please review the treatment team and contact the PT or HR ADMINISTRATIVE ASSISTANT currently assigned to this patient. If a physical therapy clinician is not assigned to this patient, please call [phone]. 06/15/21 0919 PT Last Visit Session Type Treatment PT Received On 06/15/21 Safe Environment Arm Band Checked;Call Light within Reach;Notified RN;Patient found in Supine;Overbed Table within Reach (Left in chair reclined with call within reach, nurse notifie) Subjective Agreeable to Therapy Family/Caregiver Present No Precautions Precautions Fall risk Activity Tolerance Activity Tolerance Comments Margot: Hard Pain Assessment Pain Assessment 0-10 Pain Score 3 Pain Type Acute pain Chronic Pain Precipitating Factors Position Pain Location Incision Pain Orientation Left Pain Descriptors Sore Pain Frequency With movement/cough Pain Onset Ongoing Clinical Progression Not changed Pain Interventions Medication (See MAR) Cognition Arousal/Alertness Alert;Appropriate responses to stimuli Orientation Oriented X4 (person, place, time, situation) Following Commands Follows all commands and directions without difficulty Compliance/Behavior Easy to engage Balance Balance Yes Static Sitting Balance Static Sitting-Balance Support Bilateral upper extremity supported;Feet supported Static Sitting-Sitting Surface Bed Static Sitting-Level of Assistance Close supervision Static Sitting-Comment/# of Minutes Supervision for safety Static Standing Balance Static Standing-Balance Support Bilateral upper extremity supported (on WW) Static Standing-Standing Surface Floor Static Standing-Level of Assistance Contact guard Static Standing-Comment/# of Minutes CGA for balance, safety and line management Exercises Ankle Pumps x40 (In chair to increase BP and reduce swelling) Equipment Use Equipment Use Comments No gait belt used Bed Mobility Bed Mobility Yes Bed Mobility 1 Bed Mobility From 1 Supine Bed Mobility Type 1 To Bed Mobility to 1 Edge of bed Level of Assistance 1 Minimum Assist Bed Mobility Comments 1 Min A to assist LE transition, trunk elevation, positioning of hips at edgeof bed Transfers Transfer Yes Transfer 1 Transfer From 1 Sit Transfer Type 1 To and from Transfer to 1 Stand Technique 1 Sit to stand;Stand to sit Transfer Device 1 Wheeled walker Transfer Level of Assistance 1 Contact Guard Assist Trials/Comments 1 Assist for force production, balance and safety. Verbal cues for sequencing transfer Ambulation Ambulation Yes Ambulation 1 Distance (ft) 1 20 Surface 1 Level tile Device 1 Wheeled walker Assistance 1 Contact Guard Assist Gait: Requires assist with 1 Maintaining balance Gait: Requires verbal cues to 1 Use assistive device safely;Prevent bumping into environmental barriers (corea/furniture);Improve upright posture;Utilize pursed lip breathing;Pace activity Quality of Gait 1 Decreased carmella, decreased step length Ambulation Comments 1 Several short standing breaks 2/2 decreased activity tolerance Stairs Stairs No Other Comments Other PT Comments Pt. limited this date by increased dizziness symptoms. Pt vitals were checked while pt. was in supine prior to all transfers with readings of 92% O2 sat., HR 83, BP 131/54 (73) and pain rating of 3/10. Treatment session began with supine>edge of bed transfer with min A and verbal cueing from therapist, requiring several seated rest breaks for recovery and pain control. Sit>stand transfer requiring contact guard assist for safety and management of lines, pt reported it felt good to stand up and required standing rest break 2/2 increased dizziness similar to vertigo symptoms at baseline. Ambulation of 20 feet requiring several standing rest breaks 2/2 increased dizziness and decreased activity tolerance. Pt. assisted to bedside chair where vitals were recorded. BP 96/51 (61), HR 88, and O2 sat 93%. Marked edema present in distal BUE and distal BLE. Nurse and FREIGHT CLERK notified following vitals check. Therapist and nurse reclined chair, elevated legs and ankle pump exercises were performed and rechecked vitals. Final vitals recorded BP 113/52 (66), HR 80, O2 sat 94%. Pt left in chair reclined with call light within reach. Basic Mobility - 6 Click How much difficulty does the patient have: Turning over in bed 3 How much difficulty does the patient currently have: Sitting down and standing up from a chair witharms? 3 How much difficulty does the patient have: Moving from lying on back to sitting on the side of the bed? 3 How much difficulty does the patient have: Moving to and from a bed to a chair including wheelchair? 3 How much help does the patient currently need: Walk in hospital room? 3 How much help from another person does the patient currently need: Climbing 3-5 steps with a railing? 2 Total 6 Click Score (range 6-24) 17 Score Interpretation 39.67 Assessment Prognosis Good Problem List Gait deviations;Decreased endurance;Impaired balance;Pain;Edema Plan Plan Continue with current plan;If this is the last note, consider this the discharge summary Recommendation/Plan PT Recommendation/Plan Inpatient Rehab Facility PT Frequency 5-7x/wk Treatment/Interventions Balance Training;Bed mobility;Endurance training;Gait training;Stair training;Therapeutic activity Progress Progressing toward goals PT - Next Appointment 06/16/21 Multi-Disciplinary Problems (from Physical Therapy) Active Problems Problem: Mobility Start Date: 06/14/21 Goal Start Date Expected End Date End Date STG - Patient will ambulate 06/14/21 06/28/21 -- Goal Details: 200', AAD, SBA Problem: Transfers Start Date: 06/14/21 Goal Start Date Expected End Date End Date STG - Patient to transfer to and from sit to supine 06/14/21 06/28/21 -- Goal Details: SBA Goal Start Date Expected End Date End Date STG - Patient will transfer sit to and from stand 06/14/21 06/28/21 -- Goal Details: SBA Problem: PT Misc Start Date: 06/14/21 Goal Start Date Expected End Date End Date PT LTG - Misc 1 06/14/21 07/12/21 -- Goal Details: Pt. Will be independent with all functional mobility Cosigned by Sana Hua, PT at 06/15/2021 4:05 PM CDT * Ajay Emely Annie, SHASHNAK - 06/15/2021 8:22 AM CDT Thoracic Surgery Daily Progress Note Admit: 06/10/2021 8:39 PM Date: June 15, 2021 Length of Stay: 5 Attending: Benny Carpenter* POD:* No surgery date entered * Procedure(s): THORACOTOMY, decortication Subjective History: Freddy Hill is a 70-year-old male with history of COPD, ANDRZEJ, asthma, HTN, AICD, carotid stenosiss/p R CEA, PAD s/p peripheral artery angioplasty with stent placement of LLE who presents as transfer from outside hospital for management of known left-sided empyema. PMH: COPD, ANDRZEJ, asthma, HTN, AICD, carotid stenosis, PAD, arthritis, CKD stage 3 PSH: AICD placement, ventral hernia repair, bilateral hip replacement, carotid endarterectomy, LLE peripheral artery angioplasty with stent placement, tonsillectomy, adenoidectomy Edited by: Valarie Edwards MD at 06/11/2021 5864 Interval History: O2 increased to 6l/m for O2 sats of 89%. He has been turned back down to 2l/m andwill try and get off during the day as he does at home. He does not require 6l/m Pain:controlled Nausea: No Flatus: Yes Bowel Movement: Yes Objective Medications: Current Facility-Administered Medications: ??? acetaminophen (TYLENOL) tablet 650 mg, 650 mg, oral, Q6H PRN, Valarie Edwards MD, 650 mg at 06/15/21 0606 ??? albuterol 2.5 mg/0.5 mL nebulizer solution 2.5 mg, 2.5 mg, nebulization, TID PRN (RT), Talon Resendiz MD, 2.5 mg at 06/14/21 2211 ??? amLODIPine (NORVASC) tablet 10 mg, 10 mg, oral, Daily, Marco A Ward MD, 10 mg at 06/14/21 0957 ??? atorvastatin (LIPITOR) tablet 40 mg, 40 mg, oral, Daily, Marco A Ward MD, 40 mg at 06/14/21 0958 ??? bisacodyl EC (DULCOLAX EC) tablet 10 mg, 10 mg, oral, Daily PRN, Pradeep Palma MD ??? calcium carbonate (TUMS) chewable tablet 500 mg, 200 mg of elemental calcium, oral, Daily PRN, Marco A Ward MD, 500 mg at 06/13/212116 ??? carvediloL (COREG) tablet 37.5 mg, 37.5 mg, oral, BID, Marco A Ward MD, 37.5 mg at 06/14/212046 ??? cefepime (MAXIPIME) 2,000 mg/20 mL in sterile water (premix) 2,000 mg, 2,000 mg, intravenous, Q24H JUSTIN, Marco A Ward MD, Last Rate: 40 mL/hr at 06/14/21 1006, 2,000 mg at 06/14/21 1006 ??? cloNIDine (CATAPRES) tablet 0.1 mg, 0.1 mg, oral, BID, Marco A Ward MD, 0.1 mg at 06/14/212047 ??? doxepin (SINEquan) capsule 25 mg, 25 mg, oral, Nightly, Marco A Ward MD, 25 mg at 06/13/212110 ??? enoxaparin (LOVENOX) syringe 30 mg, 30 mg, subcutaneous, Daily-2100, Pradeep Palma MD, 30 mg at 06/14/212048 ??? lidocaine (LIDODERM) 5 % patch 2 patch, 2 patch, transdermal, Daily, Valarie Edwards MD, 2 patch at 06/15/21 0204 ??? linezolid (ZYVOX) 600 mg/300 mL in dextrose 5% (premix) 600 mg, 600 mg, intravenous, Q12H [facility], Juanita Burks MD, Last Rate: 150 mL/hr at 06/14/212048, 600 mg at 06/14/212048 ??? ondansetron ODT (ZOFRAN-ODT) disintegrating tablet 4 mg, 4 mg, oral, Q6H PRN, 4 mg at 06/14/21 1138 OR [DISCONTINUED] ondansetron (ZOFRAN) injection 4 mg, 4 mg, intravenous, Q6H PRN, Yamilet Faustin MD ??? oxyCODONE (ROXICODONE) tablet 5 mg, 5 mg, oral, Q4H PRN, Valarie Edwards MD ??? pantoprazole DR (PROTONIX) extended release tablet 40 mg, 40 mg, oral, Daily, Pradeep Palma MD, 40 mg at 06/14/21957 ??? polyethylene glycol (MIRALAX) packet 17 g, 17 g, oral, Daily PRN, Juanita Burks MD, 17 g at 06/14/21956 ??? ramelteon (ROZEREM) tablet 8 mg, 8 mg, oral, Nightly PRN, Marco A Ward MD, 8 mg at 06/13/212109 ??? senna 1.76 mg/mL syrup 8.8 mg, 8.8 mg, oral, BID PRN, Juanita Burks MD, 8.8 mg at 06/14/2157 ??? sodium chloride 0.9% flush 0.5-20 mL, 0.5-20 mL, intra-catheter, Q8H Louie ANDERSON Connor Patrick, MD, 10 mL at 06/14/212056 ??? sodium chloride 0.9% flush 0.5-20 mL, 0.5-20 mL, intra-catheter, PRN, Pradeep Palma MD, 10 mL at 06/11/21 0810 ??? sodium chloride 0.9% flush 0.5-20 mL, 0.5-20 mL, intra-catheter, Q8H JUSTINLouie Connor Patrick, MD, 10 mL at 06/14/212056 ??? sodium chloride 0.9% flush 0.5-20 mL, 0.5-20 mL, intra-catheter, PRN, Pradeep Palma MD ??? tamsulosin (FLOMAX) extended release capsule 0.4 mg, 0.4 mg, oral, Daily with dinner, Pradeep Palma MD, 0.4 mg at 06/14/21 0958 ??? umeclidinium (INCRUSE ELLIPTA) 62.5 mcg/actuation inhaler 62.5 mcg, 1 puff, inhalation, Daily, Juanita Burks MD, 62.5 mcg at 06/14/21 1823 Diet: Dietary Orders (From admission, onward) Start Ordered 06/13/21 0738 Adult Diet Regular Diet effective now Question: ([facility]) Diet type Answer: Regular 06/13/21 0737 Is&Os: I/O last 2 completed shifts: In: - Out: 1485 [Urine:1360; Chest Tube:125] No intake/output data recorded. Physical Exam: 24hr Min/Max: Temp Min: 36.7 ??C (98.1 ??F) Max: 36.9 ??C (98.5 ??F) Pulse Min: 83 Max: 92 BP Min: 104/88 Max: 133/52 Resp Min: 18 Max: 26 SpO2 Min: 87 % Max: 98 % Vitals: 06/15/21 0440 BP: 108/58 Pulse: 87 Resp: 18 Temp: 36.7 ??C (98.1 ??F) SpO2: 92% Constitutional: alert and oriented x3 and no acute distress HEENT: Pupils equal, EOMs grossly normal, mucous membranes moist Respiratory: clear to auscultation bilaterally and respirations unlabored on 2L NC Abdomen: soft, non-distended Skin: warm, well perfused and extremities non-edematous Active and Removed None Labs/Imaging: Recent Labs Lab Units 06/14/21203206/14/21 0022 06/13/21 0751 WBC K/cumm 21.0* 25.8* 31.3* HEMOGLOBIN g/dL 7.2* 7.3* 8.2* HEMATOCRIT % 23.4* 24.0* 25.6* PLATELETS K/cumm 182 222 214 Recent Labs Lab Units 06/14/21203206/14/21 0022 06/13/21 0751 SODIUM mmol/L 136 136 137 POTASSIUM PLASMA mmol/L 5.2* 5.1* 5.3* CHLORIDE mmol/L 103 102 100 CO2 mmol/L 25 25 27 BUN SERUM mg/dL 56* 50* 43* CREATININE mg/dL 3.02* 2.83* 2.45* GLUCOSE mg/dL 127 131 119 CALCIUM mg/dL 8.3* 8.1* 8.4* Recent Labs Lab Units 06/11/212133 PROTIME (PT) sec 15.7* INR 1.4* XR Chest 1 View Result Date: 06/11/2021 The current study is compared with the prior radiograph dated CT dated 06/08/2021. Left subclavian atrioventricular pacemaker is noted, the ventricular lead is near the tricuspid valve. Loculated left effusion/empyema appears similar in configuration to CT. Associated patchy opacities may represent atelectasis or pneumonia. The right lung is clear with no pleural effusion. There is no pneumothorax. Cardiomediastinal silhouette is normal and unchanged. Dictated by: Ranulfo Tariq M.D. The radiology attending physician has personally reviewed this study, and had reviewed and/or editedthis written report and agrees with it. Electronically signed by: Saniya Tapia M.D. [place] Outside Reference Result Date: 06/10/2021 These images are for Reference purposes only and have not been reviewed by [facility]. There will be no report generated by a [facility] Radiologist. [place] Outside Reference Result Date: 06/10/2021 These images are for Reference purposes only and have not been reviewed by [facility]. There will be no report generated by a [facility] Radiologist. XR Outside Reference Result Date: 06/10/2021 These images are for Reference purposes only and have not been reviewed by [facility]. There will be no report generated by a [facility] Radiologist. XR Outside Reference Result Date: 06/10/2021 These images are for Reference purposes only and have not been reviewed by [facility]. There will be no report generated by a [facility] Radiologist. CT Body Outside Consult Result Date: 06/11/2021 1. Moderate left-sided pleural effusion in keeping with known empyema. Left lower lobe opacity could represent atelectasis or pneumonia. Lack of intravenous contrast limits evaluation for pleural andlung enhancement. 2. Aortic arch penetrating atherosclerotic ulcer. [...] images may or may not represent the [place] source data set and thus may contain changes that may lower the accuracy of this second-opinion interpretation. Electronically signed by: Bartolome Kathleen M.D. , PHD CT Body Outside Reference Result Date: 06/10/2021 These images are for Reference purposes only and have not been reviewed by [facility]. There will be no report generated by a [facility] Radiologist. [place] Outside Reference Result Date: 06/10/2021 These images are for Reference purposes only and have not been reviewed by [facility]. There will be no report generated by a [facility] Radiologist. Assessment/Plan Anemia Assessment & Plan - monitor - possibly R/T empyema Hypertension Assessment & Plan Has been normotensive while inpatient -Continue Amlodipine, Carvedilol, clonidine - Lisinopril and HCTZ on hold Hyperkalemia Assessment & Plan - Lisinopril on hold - AM BMP - monitor on tele CKD (chronic kidney disease) stage 4, GFR 15-29 ml/min ([facility] ([facility]) Assessment & Plan At time of admission creat baseline 2.5 - dc'd vanc due to increase in creatine and vanco level - Avoid other nephrotoxic medications - daily BMP - keep london due to rising creatine COPD (chronic obstructive pulmonary disease) ([facility]) ([facility]) Assessment & Plan Wears 2L O2 overnight, has ANDRZEJ - continue home inhaler PVD (peripheral vascular disease) ([facility]) ([facility]) Assessment & Plan S/p peripheral artery angioplasty with stent placement x3. Takes Plavix at home. According to OSH records, last dose was 06/03. - hold Plavix Cardiac pacemaker in situ Assessment & Plan 2/2 symptomatic bradycardia, second degree AV block - on Eliquis (last dose 06/06), unknown why? - hold AC * Empyema ([facility]) ([facility]) Assessment & Plan WBC: 21, afebrile. OSH CT shows small to moderate loculated pleural effusion. - s/p L thoracotomy and decortication on 06/12 - Continue IV cefe. Vanc switched to Linezolid - micro results from OSH--show gram positive in cocci, moderate growth strept intermedius - ID [facility] For patients or family members viewing this note through [employer] access programs: This note was written as a communication tool between healthcare providers and may contain technical language, terminology and abbreviations that is difficult to interpret without advanced medical training. If you have questions or concerns regarding what is written in this note, please request to speak with the primary medical team taking care of you or your family member or call your PCP for clarification. Please do not call the cell or pager numbers listed in this note, as the provider they are associated with may no longer be involved in your care. Cosigned by Benny Carpenter MD at 06/16/2021 7:25 AM CDT * Juanita Burks MD - 06/14/2021 11:11 AM CDT Thoracic Surgery Daily Progress Note Admit: 06/10/2021 8:39 PM Date: June 14, 2021 Length of Stay: 4 Attending: Benny Carpenter* POD:* No surgery date entered * Procedure(s): THORACOTOMY, decortication Subjective History: Freddy Hill is a 70-year-old male with history of COPD, ANDRZEJ, asthma, HTN, AICD, carotid stenosiss/p R CEA, PAD s/p peripheral artery angioplasty with stent placement of LLE who presents as transfer from outside hospital for management of known left-sided empyema. PMH: COPD, ANDRZEJ, asthma, HTN, AICD, carotid stenosis, PAD, arthritis, CKD stage 3 PSH: AICD placement, ventral hernia repair, bilateral hip replacement, carotid endarterectomy, LLE peripheral artery angioplasty with stent placement, tonsillectomy, adenoidectomy Edited by: Valarie Edwards MD at 06/11/2021 7077 Interval History: Patient reports feeling well this morning. Pain is well-controlled, denies nausea or vomiting. Switching from vanc to Linezolid today and will transition to oral pain meds. Pain:controlled Nausea: No Flatus: Yes Bowel Movement: Yes Objective Medications: Current Facility-Administered Medications: ??? albuterol 2.5 mg/0.5 mL nebulizer solution 2.5 mg, 2.5 mg, nebulization, TID PRN, Pradeep Palma MD ??? amLODIPine (NORVASC) tablet 10 mg, 10 mg, oral, Daily, Marco A Ward MD, 10 mg at 06/14/21956 ??? atorvastatin (LIPITOR) tablet 40 mg, 40 mg, oral, Daily, Marco A Ward MD, 40 mg at 06/14/21957 ??? bisacodyl EC (DULCOLAX EC) tablet 10 mg, 10 mg, oral, Daily PRN, Pradeep Palma MD ??? calcium carbonate (TUMS) chewable tablet 500 mg, 200 mg of elemental calcium, oral, Daily PRN, Marco A Ward MD, 500 mg at 06/13/212116 ??? carvediloL (COREG) tablet 37.5 mg, 37.5 mg, oral, BID, Marco A Ward MD, 37.5 mg at 06/14/21956 ??? cefepime (MAXIPIME) 2,000 mg/20 mL in sterile water (premix) 2,000 mg, 2,000 mg, intravenous, Q24H JUSTIN, Marco A Ward MD, Last Rate: 40 mL/hr at 06/14/21 1006, 2,000 mg at 06/14/21 1006 ??? cloNIDine (CATAPRES) tablet 0.1 mg, 0.1 mg, oral, BID, Marco A Ward MD, 0.1 mg at 06/14/21956 ??? doxepin (SINEquan) capsule 25 mg, 25 mg, oral, Nightly, Marco A Ward MD, 25 mg at 06/13/212110 ??? enoxaparin (LOVENOX) syringe 30 mg, 30 mg, subcutaneous, Daily-2100, Pradeep Palma MD, 30 mg at 06/13/212104 ??? linezolid (ZYVOX) 600 mg/300 mL in dextrose 5% (premix) 600 mg, 600 mg, intravenous, Q12H [facility], [facility] ??? ondansetron ODT (ZOFRAN-ODT) disintegrating tablet 4 mg, 4 mg, oral, Q6H PRN OR [DISCONTINUED] ondansetron (ZOFRAN) injection 4 mg, 4 mg, intravenous, Q6H PRN, Yamilet Faustin MD ??? oxyCODONE (ROXICODONE) tablet 5 mg, 5 mg, oral, Q4H PRN, Juanita Burks MD, 5 mg at 06/14/21957 ??? pantoprazole DR (PROTONIX) extended release tablet 40 mg, 40 mg, oral, Daily, Pradeep Palma MD, 40 mg at 06/14/2158 ??? polyethylene glycol (MIRALAX) packet 17 g, 17 g, oral, Daily PRN, Juanita Burks MD, 17 g at 06/14/21956 ??? ramelteon (ROZEREM) tablet 8 mg, 8 mg, oral, Nightly PRN, Marco A Ward MD, 8 mg at 06/13/212109 ??? senna 1.76 mg/mL syrup 8.8 mg, 8.8 mg, oral, BID PRN, Juanita Burks MD, 8.8 mg at 06/14/21 0957 ??? sodium chloride 0.9% flush 0.5-20 mL, 0.5-20 mL, intra-catheter, Q8H JUSTIN, Pradeep Palma MD, 10 mL at 06/14/21 0551 ??? sodium chloride 0.9% flush 0.5-20 mL, 0.5-20 mL, intra-catheter, PRN, Pradeep Palma MD, 10 mL at 06/11/21 0810 ??? sodium chloride 0.9% flush 0.5-20 mL, 0.5-20 mL, intra-catheter, Q8H JUSTIN, Pradeep Palma MD, 10 mL at 06/14/21 0550 ??? sodium chloride 0.9% flush 0.5-20 mL, 0.5-20 mL, intra-catheter, PRN, Pradeep Palma MD ??? sodium chloride 0.9% infusion, 10 mL/hr, intravenous, Continuous, Juanita Burks MD, Last Rate: 75 mL/hr at 06/13/212115, 75 mL/hr at 06/13/212115 ??? sodium chloride 0.9% solution 1,000 mL, 1,000 mL, intra-catheter, Continuous, Pradeep Palma MD, 1,000 mL at 06/12/212130 ??? tamsulosin (FLOMAX) extended release capsule 0.4 mg, 0.4 mg, oral, Daily with dinner, Pradeep Palma MD, 0.4 mg at 06/14/21 0958 Diet: Dietary Orders (From admission, onward) Start Ordered 06/13/21 0738 Adult Diet Regular Diet effective now Question: ([facility]) Diet type Answer: Regular 06/13/21 0737 Is&Os: I/O last 2 completed shifts: In: 825 [I.V.:825] Out: 1440 [Urine:1320; Chest Tube:120] I/O this shift: In: - Out: 250 [Urine:200; Chest Tube:50] Physical Exam: 24hr Min/Max: Temp Min: 36.6 ??C (97.8 ??F) Max: 36.9 ??C (98.5 ??F) Pulse Min: 73 Max: 99 BP Min: 108/91 Max: 140/65 Resp Min: 16 Max: 27 SpO2 Min: 89 % Max: 98 % Vitals: 06/14/21 0800 BP: Pulse: Resp: Temp: 36.7 ??C (98.1 ??F) SpO2: Constitutional: alert and oriented x3 and no acute distress HEENT: Pupils equal, EOMs grossly normal, mucous membranes moist Respiratory: clear to auscultation bilaterally and respirations unlabored on 1L NC Chest: CTx2 to -20 suction. Incision c/d/i. Abdomen: soft, non-distended Skin: warm, well perfused and extremities non-edematous Active and Removed None Labs/Imaging: Recent Labs Lab Units 06/14/21 0022 06/13/211 06/12/21 1803 06/12/21 1448 06/11/212133 WBC K/cumm 25.8* 31.3* -- -- 26.4* HEMOGLOBIN, POC g/dL -- -- 8.7* < > -- HEMOGLOBIN g/dL 7.3* 8.2* -- -- 9.2* HEMATOCRIT % 24.0* 25.6* -- -- 29.6* HEMATOCRIT POC % -- -- 26.0* < > -- PLATELETS K/cumm 222 214 -- -- 196 < > = values in this interval not displayed. Recent Labs Lab Units 06/14/21 0022 06/13/2175006/12/21180206/12/218 06/11/212133 SODIUM mmol/L 136 137 -- -- 135 POTASSIUM PLASMA mmol/L 5.1* 5.3* -- -- 5.1* CHLORIDE mmol/L 102 100 -- -- 101 CO2 mmol/L 25 27 -- -- 27 BUN SERUM mg/dL 50* 43* -- -- 47* CREATININE mg/dL 2.83* 2.45* -- -- 2.38* GLUCOSE mg/dL 131 119 -- -- 102 POC GLUCOSE MONITOR mg/dL -- -- 103 < > -- CALCIUM mg/dL 8.1* 8.4* -- -- 8.6 < > = values in this interval not displayed. Recent Labs Lab Units 06/11/212133 PROTIME (PT) sec 15.7* INR 1.4* XR Chest 1 View Result Date: 06/11/2021 The current study is compared with the prior radiograph dated CT dated 06/08/2021. Left subclavian atrioventricular pacemaker is noted, the ventricular lead is near the tricuspid valve. Loculated left effusion/empyema appears similar in configuration to CT. Associated patchy opacities may represent atelectasis or pneumonia. The right lung is clear with no pleural effusion. There is no pneumothorax. Cardiomediastinal silhouette is normal and unchanged. Dictated by: Ranulfo Tariq M.D. The radiology attending physician has personally reviewed this study, and had reviewed and/or editedthis written report and agrees with it. Electronically signed by: Saniya Tapia M.D. [place] Outside Reference Result Date: 06/10/2021 These images are for Reference purposes only and have not been reviewed by [facility]. There will be no report generated by a [facility] Radiologist. US Outside Reference Result Date: 06/10/2021 These images are for Reference purposes only and have not been reviewed by [facility]. There will be no report generated by a [facility] Radiologist. XR Outside Reference Result Date: 06/10/2021 These images are for Reference purposes only and have not been reviewed by [facility]. There will be no report generated by a [facility] Radiologist. XR Outside Reference Result Date: 06/10/2021 These images are for Reference purposes only and have not been reviewed by [facility]. There will be no report generated by a [facility] Radiologist. CT Body Outside Consult Result Date: 06/11/2021 1. Moderate left-sided pleural effusion in keeping with known empyema. Left lower lobe opacity could represent atelectasis or pneumonia. Lack of intravenous contrast limits evaluation for pleural andlung enhancement. 2. Aortic arch penetrating atherosclerotic ulcer. [...] images may or may not represent the [place] source data set and thus may contain changes that may lower the accuracy of this second-opinion interpretation. Electronically signed by: Bartolome Kathleen M.D. , PHD CT Body Outside Reference Result Date: 06/10/2021 These images are for Reference purposes only and have not been reviewed by [facility]. There will be no report generated by a [facility] Radiologist. NM Outside Reference Result Date: 06/10/2021 These images are for Reference purposes only and have not been reviewed by [facility]. There will be no report generated by a [facility] Radiologist. Assessment/Plan Hypertension Assessment & Plan Has been normotensive while inpatient -Continue Amlodipine, Carvedilol, clonidine - Lisinopril and HCTZ on hold Hyperkalemia Assessment & Plan K: 5.1 - Lisinopril on hold - AM BMP - monitor on tele CKD (chronic kidney disease) stage 4, GFR 15-29 ml/min ([facility] ([facility]) Assessment & Plan At time of admission: GFR: 27, BUN/Cr: 42/2.35. K: 5.6. No urine charted. No h/o HD - dc'd vanc - Avoid other nephrotoxic medications - daily BMP COPD (chronic obstructive pulmonary disease) ([facility]) ([facility]) Assessment & Plan Wears 2L O2 overnight, has ANDRZEJ - continue home inhaler PVD (peripheral vascular disease) ([facility]) ([facility]) Assessment & Plan S/p peripheral artery angioplasty with stent placement x3. Takes Plavix at home. According to OSH records, last dose was 06/03. - hold Plavix Cardiac pacemaker in situ Assessment & Plan 2/2 symptomatic bradycardia, second degree AV block - on Eliquis (last dose 06/06), unknown why? - hold AC * Empyema ([facility]) ([facility]) Assessment & Plan WBC: 26, afebrile. OSH CT shows small to moderate loculated pleural effusion. - s/p L thoracotomy and decortication on 06/12 - Continue IV cefe. Vanc switched to Linezolid - Will obtain micro results from OSH Juanita Burks MD For patients or family members viewing this note through [employer] programs: This note was written as a communication tool between healthcare providers and may contain technical language, terminology and abbreviations that is difficult to interpret without advanced medical training. If you have questions or concerns regarding what is written in this note, please request to speak with the primary medical team taking care of you or your family member or call your PCP for clarification. Please do not call the cell or pager numbers listed in this note, as the provider they are associated with may no longer be involved in your care. Cosigned by Benny Carpenter MD at 06/14/2021 6:56 PM CDT * Sana Hua, PT - 06/14/2021 10:23 AM CDT Physical Therapy Physical Therapy Initial Assessment NOTE: This is a summary note for the emery assessments completed during the evaluation session. For full details, review chart review for all flowsheets documented on by this physical therapist on thisdate. Vital signs documented in vital signs flowsheet. Assessment Assessment Prognosis: Good Problem List: Gait deviations, Decreased strength, Decreased endurance, Impaired balance, Decreasedmobility, Pain, Edema Problem List Comments: Pt's L sided infection empyema/sepsis, pleural effusion results in above listed activity deficits and impairments which prevent full participation in home and community mobility Plan Plan Plan : Plan of care initiated, If this is the last note, consider this the discharge summary PT Recommendation and Plan Recommendation/Plan PT Recommendation/Plan: Inpatient Rehab Facility PT Recommendation/Plan Comments: pending progress PT Frequency: 5-7x/wk Treatment/Interventions: Balance Training, Bed mobility, Endurance training, Functional activity, Functional transfer training, Gait training, Neuromuscular re-education, Strengthening, Therapeutic activity, Therapeutic exercise, Transfer training PT - Next Appointment: 06/15/21 PT Evaluation Complete: Yes General Information General Chart Reviewed: Yes Session Type: Evaluation PT Received On: 06/14/21 Safe Environment: Arm Band Checked, Call Light within Reach, Notified RN, Patient found sitting in Chair, Overbed Table within Reach (Pt. left seated in recliner with call light in reach) Subjective: Agreeable to Therapy Family/Caregiver Present: Yes (Sister present) Prior Function Prior Function Level of Hood: Independent functional transfers, Independent with ambulation Lives With: Family (Pt. reports living with sister) Receives Help From: Family (FT assistance available from sister) Fall within the last 6 months: No Prior Function Comments: Pt. reports that he was independent with all functional mobility prior to admission. Home Living Home Living Type of Home: House Home Layout: One level Home Access: Stairs to enter without rails Entrance Stairs-Number of Steps: 1 Home Mobility Equipment: Wheeled walker, Single point cane, Wheelchair-manual Additional Comments: Pt. reports no use of AD at baseline. Precautions Precautions Precautions: Fall risk Pain Pain Assessment Pain Assessment: 0-10 Pain Score: 5 - Moderate pain Pain Location: Incision Pain Interventions: Repositioned Cognition Cognition Arousal/Alertness: Alert, Appropriate responses to stimuli Orientation : Oriented X4 (person, place, time, situation) Following Commands: Follows all commands and directions without difficulty Compliance/Behavior: Easy to engage 6 Clicks Basic Mobility - 6 Click How much difficulty does the patient have: Turning over in bed: A lot How much difficulty does the patient currently have: Sitting down and standing up from a chair witharms?: A lot How much difficulty does the patient have: Moving from lying on back to sitting on the side of the bed?: A lot How much difficulty does the patient have: Moving to and from a bed to a chair including wheelchair?: A little How much help does the patient currently need: Walk in hospital room?: A little How much help from another person does the patient currently need: Climbing 3-5 steps with a railing?: A lot Total 6 Click Score (range 6-24): 14 Score Interpretation: 14 Bed Mobility Bed Mobility Bed Mobility: No Transfers Transfers Transfer: Yes Transfer 1 Transfer From 1: Sit Transfer Type 1: To Transfer to 1: Stand Technique 1: Sit to stand Transfer Device 1: Wheeled walker Transfer Level of Assistance 1: Moderate Assist (x2) Trials/Comments 1: Assist for force production, balance, and safety. Verbal cues for hand placementand sequencing of task. Transfers 2 Transfer From 2: Stand Transfer Type 2: To Transfer to 2: Sit Technique 2: Stand to sit Transfer Device 2: Wheeled walker Transfer Level of Assistance 2: Contact Guard Assist Trials/Comments 2: CGA for balance and safety. Pt. required increased time to control descent to chair. Verbal cues for hand placement and sequencing of task. Balance Static Sitting Balance Static Sitting-Balance Support: Feet supported Static Sitting-Sitting Surface: Chair Static Sitting-Level of Assistance: Close supervision Static Sitting-Comment/# of Minutes: supervision for safety Static Standing Balance Static Standing-Balance Support: Bilateral upper extremity supported (on w/w) Static Standing-Standing Surface: Floor Static Standing-Level of Assistance: Contact guard Static Standing-Comment/# of Minutes: CGA for balance and safety Ambulation Ambulation Ambulation: Yes Ambulation 1 Distance (ft) 1: 10 (5' forwards + 5' backwards) Surface 1: Level tile Device 1: Wheeled walker Assistance 1: Contact Guard Assist Gait: Requires assist with 1: Maintaining balance Gait: Requires verbal cues to 1: Use assistive device safely, Utilize appropriate gait sequencing, Improve upright posture, Pace activity Quality of Gait 1: decreased carmella, decreased step length, decreased GRAZYNA, decreased step clearance, forward flexed posture Ambulation Comments 1: Multiple short standing rest breaks 2/2 increased pain with movement. Stairs Stairs Stairs: No Curbs RLE Assessment RLE Assessment RLE Assessment: Within Functional Limits LLE Assessment LLE Assessment LLE Assessment: Within Functional Limits Equipment Used Equipment Use Equipment Use Comments: No gait belt used 2/2 chest tubes Other Comments Other Comments Other PT Comments: Pt. limited this date by increased/uncontrolled pain. Pt. required frequent standing rest breaks to recover. Anticipate pt. to progress with mobility once pain better controlled. PT Goals Multi-Disciplinary Problems (from Physical Therapy) Active Problems Problem: Mobility Start Date: 06/14/21 Goal Start Date Expected End Date End Date STG - Patient will ambulate 06/14/21 06/28/21 -- Goal Details: 200', AAD, SBA Problem: Transfers Start Date: 06/14/21 Goal Start Date Expected End Date End Date STG - Patient to transfer to and from sit to supine 06/14/21 06/28/21 -- Goal Details: SBA Goal Start Date Expected End Date End Date STG - Patient will transfer sit to and from stand 06/14/21 06/28/21 -- Goal Details: SBA Problem: PT Misc Start Date: 06/14/21 Goal Start Date Expected End Date End Date PT LTG - Misc 1 06/14/21 07/12/21 -- Goal Details: Pt. Will be independent with all functional mobility * Marco A Ward MD - 06/13/2021 12:30 PM CDT Thoracic Surgery Daily Progress Note Admit: 06/10/2021 8:39 PM Date: June 13, 2021 Length of Stay: 3 Attending: Lujan López, Benny Cate* POD:* No surgery date entered * Procedure(s): THORACOTOMY, decortication Subjective History: Freddy Hill is a 70-year-old male with history of COPD, ANDRZEJ, asthma, HTN, AICD, carotid stenosiss/p R CEA, PAD s/p peripheral artery angioplasty with stent placement of LLE who presents as transfer from outside hospital for management of known left-sided empyema. PMH: COPD, ANDRZEJ, asthma, HTN, AICD, carotid stenosis, PAD, arthritis, CKD stage 3 PSH: AICD placement, ventral hernia repair, bilateral hip replacement, carotid endarterectomy, LLE peripheral artery angioplasty with stent placement, tonsillectomy, adenoidectomy Edited by: Valarie Edwards MD at 06/11/2021 9321 Interval History: -s/p thoracotomy with decortication for empyema and left lower lobe abscesses -feels well this AM, is tolerating diet -vanc trough is high at 44.1. Pharmacy contacted. Pain:controlled Nausea: No Flatus: Yes Bowel Movement: Yes Objective Medications: Current Facility-Administered Medications: ??? albuterol 2.5 mg/0.5 mL nebulizer solution 2.5 mg, 2.5 mg, nebulization, TID PRN, Pradeep Palma MD ??? bisacodyl EC (DULCOLAX EC) tablet 10 mg, 10 mg, oral, Daily PRN, Pradeep Palma MD ??? cefepime (MAXIPIME) 2,000 mg/20 mL in sterile water (premix) 2,000 mg, 2,000 mg, intravenous, Q8H JUSTIN, Pradeep Palma MD, Last Rate: 40 mL/hr at 06/13/21 0849, 2,000 mg at 06/13/21 0849 ??? enoxaparin (LOVENOX) syringe 30 mg, 30 mg, subcutaneous, Daily-2100, Pradeep Palma MD, 30 mg at 06/12/212127 ??? HYDROmorphone in 0.9% sodium chloride (DILAUDID) 20 mg/100 mL (0.2 mg/mL) cassette (premix), , intravenous, Continuous, Pradeep Palma MD, 20 mg at 06/12/21 1756 ??? naloxone (NARCAN) 0.4 mg/mL injection 0.04-0.4 mg, 0.04-0.4 mg, intravenous, Q10 Min PRN, Pradeep Palma MD ??? norepinephrine in 0.9% sodium chloride (LEVOPHED) 8,000 mcg/250 mL (32 mcg/mL) infusion (premix), 0-2 mcg/kg/min, intravenous, Titrated, Pradeep Palma MD, Last Rate: 8.869 mL/hr at 06/12/21 1625, 0.05 mcg/kg/min at 06/12/21 1625 ??? ondansetron ODT (ZOFRAN-ODT) disintegrating tablet 4 mg, 4 mg, oral, Q6H PRN OR [DISCONTINUED] ondansetron (ZOFRAN) injection 4 mg, 4 mg, intravenous, Q6H PRN, Yamilet Faustin MD ??? pantoprazole DR (PROTONIX) extended release tablet 40 mg, 40 mg, oral, Daily, Pradeep Palma MD, 40 mg at 06/13/21 0849 ??? sodium chloride 0.9% flush 0.5-20 mL, 0.5-20 mL, intra-catheter, Q8H JUSTIN, Pradeep Palma MD, 10 mL at 06/12/21 0445 ??? sodium chloride 0.9% flush 0.5-20 mL, 0.5-20 mL, intra-catheter, PRN, Pradeep Palma MD, 10 mL at 06/11/21 0810 ??? sodium chloride 0.9% flush 0.5-20 mL, 0.5-20 mL, intra-catheter, Q8H JUSTNILouie Connor Patrick, MD ??? sodium chloride 0.9% flush 0.5-20 mL, 0.5-20 mL, intra-catheter, PRN, Pradeep Palma MD ??? sodium chloride 0.9% infusion, 75 mL/hr, intravenous, Continuous, Pradeep Palma MD,Last Rate: 75 mL/hr at 06/13/21 0911, 75 mL/hr at 06/13/21 0911 ??? sodium chloride 0.9% solution 1,000 mL, 1,000 mL, intra-catheter, Continuous, Pradeep Palma MD, 1,000 mL at 06/12/211 ??? tamsulosin (FLOMAX) extended release capsule 0.4 mg, 0.4 mg, oral, Daily with dinner, Pradeep Palma MD, 0.4 mg at 06/13/21 0849 ??? [Held by Provider] vancomycin 1500 mg/515 mL in sodium chloride 0.9% (premix) 1,500 mg, 15 mg/kg, intravenous, Q24H, Pradeep Palma MD, 1,500 mg at 06/13/21 0024 Diet: Dietary Orders (From admission, onward) Start Ordered 06/13/21 0738 Adult Diet Regular Diet effective now Question: ([facility]) Diet type Answer: Regular 06/13/21 0737 Is&Os: I/O last 2 completed shifts: In: 520 [P.O.:20; I.V.:500] Out: 3634 [Urine:3290; Chest Tube:344] I/O this shift: In: - Out: 234 [Urine:210; Chest Tube:24] Physical Exam: 24hr Min/Max: Temp Min: 36.1 ??C (97 ??F) Max: 36.9 ??C (98.5 ??F) Pulse Min: 74 Max: 97 BP Min: 94/58 Max: 144/61 Resp Min: 12 Max: 30 SpO2 Min: 89 % Max: 100 % Vitals: 06/13/21 1200 BP: Pulse: Resp: Temp: 36.9 ??C (98.5 ??F) SpO2: Constitutional: alert and oriented x3 and no acute distress HEENT: Pupils equal, EOMs grossly normal, mucous membranes moist Respiratory: clear to auscultation bilaterally and respirations unlabored on 2L NC Chest: CTx2 to -20 suction. Incision c/d/i. Abdomen: soft, non-distended Skin: warm, well perfused and extremities non-edematous Active and Removed None Labs/Imaging: Recent Labs Lab Units 06/13/21 0751 06/12/21 1803 06/12/21 1722 06/12/21 1448 06/11/21 21306/10/21 23006/10/21 230 WBC K/cumm 31.3* -- -- -- 26.4* -- 32.0* HEMOGLOBIN, POC g/dL -- 8.7* 9.0* < > -- -- -- HEMOGLOBIN g/dL 8.2* -- -- -- 9.2* < > 10.5* HEMATOCRIT % 25.6* -- -- -- 29.6* < > 32.8* HEMATOCRIT POC % -- 26.0* 27.0* < > -- -- -- PLATELETS K/cumm 214 -- -- -- 196 -- 186 < > = values in this interval not displayed. Recent Labs Lab Units 06/13/21 0751 06/12/21 18006/12/21 1722 06/12/21 1448 06/11/21213306/11/21 1158 06/11/21 1158 SODIUM mmol/L 137 -- -- -- 135 -- 130* POTASSIUM PLASMA mmol/L 5.3* -- -- -- 5.1* -- 5.2* CHLORIDE mmol/L 100 -- -- -- 101 -- 96* CO2 mmol/L 27 -- -- -- 27 -- 26 BUN SERUM mg/dL 43* -- -- -- 47* -- 43* CREATININE mg/dL 2.45* -- -- -- 2.38* -- 2.36* GLUCOSE mg/dL 119 -- -- -- 102 < > 76 POC GLUCOSE MONITOR mg/dL -- 103 104 < > -- -- -- CALCIUM mg/dL 8.4* -- -- -- 8.6 -- 8.6 < > = values in this interval not displayed. Recent Labs Lab Units 06/11/212133 PROTIME (PT) sec 15.7* INR 1.4* XR Chest 1 View Result Date: 06/11/2021 The current study is compared with the prior radiograph dated CT dated 06/08/2021. Left subclavian atrioventricular pacemaker is noted, the ventricular lead is near the tricuspid valve. Loculated left effusion/empyema appears similar in configuration to CT. Associated patchy opacities may represent atelectasis or pneumonia. The right lung is clear with no pleural effusion. There is no pneumothorax. Cardiomediastinal silhouette is normal and unchanged. Dictated by: Ranulfo Tariq M.D. The radiology attending physician has personally reviewed this study, and had reviewed and/or editedthis written report and agrees with it. Electronically signed by: Saniya Tapia M.D. [place] Outside Reference Result Date: 06/10/2021 These images are for Reference purposes only and have not been reviewed by [facility]. There will be no report generated by a [facility] Radiologist. [place] Outside Reference Result Date: 06/10/2021 These images are for Reference purposes only and have not been reviewed by [facility]. There will be no report generated by a [facility] Radiologist. XR Outside Reference Result Date: 06/10/2021 These images are for Reference purposes only and have not been reviewed by [facility]. There will be no report generated by a [facility] Radiologist. XR Outside Reference Result Date: 06/10/2021 These images are for Reference purposes only and have not been reviewed by [facility]. There will be no report generated by a [facility] Radiologist. CT Body Outside Consult Result Date: 06/11/2021 1. Moderate left-sided pleural effusion in keeping with known empyema. Left lower lobe opacity could represent atelectasis or pneumonia. Lack of intravenous contrast limits evaluation for pleural andlung enhancement. 2. Aortic arch penetrating atherosclerotic ulcer. [...] images may or may not represent the level[place] source data set and thus may contain changes that may lower the accuracy of this second-opinion interpretation. Electronically signed by: Bartolome Kathleen M.D. , PHD CT Body Outside Reference Result Date: 06/10/2021 These images are for Reference purposes only and have not been reviewed by [facility]. There will be no report generated by a [facility] Radiologist. [place] Outside Reference Result Date: 06/10/2021 These images are for Reference purposes only and have not been reviewed by [facility]. There will be no report generated by a [facility] Radiologist. Assessment/Plan Hypertension Assessment & Plan Has been normotensive while inpatient -Continue Amlodipine, Carvedilol, clonidine - Lisinopril and HCTZ on hold Hyperkalemia Assessment & Plan K: 5.1 - Lisinopril on hold - AM BMP - monitor on tele CKD (chronic kidney disease) stage 4, GFR 15-29 ml/min ([facility]) ([facility]) Assessment & Plan At time of admission: GFR: 27, BUN/Cr: 42/2.35. K: 5.6. No urine charted. No h/o HD - decrease Vanc dose to daily - Avoid other nephrotoxic medications - daily BMP COPD (chronic obstructive pulmonary disease) ([facility]) ([facility]) Assessment & Plan Wears 2L O2 overnight, has ANDRZEJ - continue home inhaler PVD (peripheral vascular disease) ([facility]) ([facility]) Assessment & Plan S/p peripheral artery angioplasty with stent placement x3. Takes Plavix at home. According to OSH records, last dose was 06/03. - hold Plavix Cardiac pacemaker in situ Assessment & Plan 2/2 symptomatic bradycardia, second degree AV block - on Eliquis (last dose 06/06), unknown why? - hold AC * Empyema ([facility]) ([facility]) Assessment & Plan WBC: 26, afebrile. OSH CT shows small to moderate loculated pleural effusion. - OR today for decortication - Continue IV cefe and Vanc - f/u Vanc through - Trend CBC - Will obtain micro results from OSH KATHERINE Shaw For patients or family members viewing this note through [employer] programs: This note was written as a communication tool between healthcare providers and may contain technical language, terminology and abbreviations that is difficult to interpret without advanced medical training. If you have questions or concerns regarding what is written in this note, please request to speak with the primary medical team taking care of you or your family member or call your PCP for clarification. Please do not call the cell or pager numbers listed in this note, as the provider they are associated with may no longer be involved in your care. Cosigned by Benny Carpenter MD at 06/14/2021 6:58 PM CDT * Margie Serrato MD - 06/12/2021 9:05 PM CDT THORACIC SURGERY POSTOPERATIVE CHECK SUBJECTIVE: Mr. Freddy Hill is a 70 y.o. male who underwent left thoracotomy for Empyema (CMS/HCC) ([facility]) Denies nausea/vomiting, chest pain, shortness of breath. Hemodynamically stable with no complaints at this time. Past Medical History: Diagnosis Date ??? Anemia ??? Arthritis ??? Asthma ??? AV block Jun 2020 PM insertion ??? Carotid stenosis s/p right CEA ??? CKD (chronic kidney disease) stage 3, GFR 30-59 ml/min ([facility]) ??? Claudication (CMS/HCC) ([facility]) ??? COPD (chronic obstructive pulmonary disease) (CMS/HCC) ([facility]) ??? COVID-19 05/2020 hospitalization 3 days ??? Empyema (CMS/HCC) ([facility]) 05/2020 ??? GERD (gastroesophageal reflux disease) ??? Hyperkalemia ??? Hypertension ??? PAD (peripheral artery disease) (CMS/HCC) ([facility]) ??? Pneumonia 2018 ??? Sleep apnea OBJECTIVE: Vitals: 06/12/211999 BP: Pulse: Resp: Temp: 36.7 ??C (98.1 ??F) SpO2: General: vitals stable, on room air HEENT: normal CVS: regular rate and rhythm Pulmonary: left CT tube to wall sunction, clear lungs bilaterally Extremities: warm, well perfused PLAN: Neuro/Pain: [employer] CV: monitor HR Resp: IS 10x/ h. Clears, ADAT ID: no antibiotics indicated Ct to wall sunction Daily CXR PT/OT OOB Margie Serrato MD Cosigned by Benny Carpenter MD at 06/14/2021 6:58 PM CDT * Jony Ruiz - 06/12/2021 3:40 PM CDT Spiritual Care Note Quill Cleaner Jony Ruiz [facility], [facility] 06/12/21 1400 Time Spent Start Time 1448 Stop Time 1449 Time Calculation (min) 1 min Patient Spiritual Assessment Spirituality Assessed Unable to assess Clinical Encounter Type Visited With Patient not available (patient away from room at time of milking machine mechanic visit) * Samra Hurtado NP - 06/12/2021 11:35 AM CDT Thoracic Surgery Daily Progress Note Admit: 06/10/2021 8:39 PM Date: June 12, 2021 Length of Stay: 2 Attending: Benny Carpenter* POD:* No surgery date entered * Procedure(s): THORACOTOMY, decortication Subjective History: Freddy Hill is a 70-year-old male with history of COPD, ANDRZEJ, asthma, HTN, AICD, carotid stenosiss/p R CEA, PAD s/p peripheral artery angioplasty with stent placement of LLE who presents as transfer from outside hospital for management of known left-sided empyema. PMH: COPD, ANDRZEJ, asthma, HTN, AICD, carotid stenosis, PAD, arthritis, CKD stage 3 PSH: AICD placement, ventral hernia repair, bilateral hip replacement, carotid endarterectomy, LLE peripheral artery angioplasty with stent placement, tonsillectomy, adenoidectomy Edited by: Valarie Edwards MD at 06/11/2021 0313 Interval History: Mr. Hill is planned to go to the OR for a left thoracotomy, decortication. He is NPO with IVF infusing. He is consented. Pain:controlled Nausea: No Flatus: Yes Bowel Movement: Yes Objective Medications: Current Facility-Administered Medications: ??? albuterol 2.5 mg/0.5 mL nebulizer solution 2.5 mg, 2.5 mg, nebulization, TID PRN, Valarie Edwards MD ??? amLODIPine (NORVASC) tablet 10 mg, 10 mg, oral, Daily, Valarie Edwards MD, 10 mg at 06/11/21 0807 ??? atorvastatin (LIPITOR) tablet 40 mg, 40 mg, oral, Daily, Valarie Edwards MD, 40 mg at 06/11/21 0807 ??? bisacodyL (DULCOLAX) suppository 10 mg, 10 mg, rectal, Daily PRN, Yamilet Faustin MD ??? bisacodyl EC (DULCOLAX EC) tablet 10 mg, 10 mg, oral, Daily PRN, Yamilet Faustin MD ??? carvediloL (COREG) tablet 37.5 mg, 37.5 mg, oral, BID, Valarie Edwards MD, 37.5 mg at 06/12/21 0923 ??? cefepime (MAXIPIME) 2,000 mg/20 mL in sterile water (premix) 2,000 mg, 2,000 mg, intravenous, Q8H JUSTIN, Valarie Edwards MD, Last Rate: 40 mL/hr at 06/12/21 09, 2,000 mg at 06/12/21 0923 ??? cloNIDine (CATAPRES) tablet 0.1 mg, 0.1 mg, oral, BID, Valarie Edwards MD, 0.1 mg at 06/12/21 0923 ??? doxepin (SINEquan) capsule 25 mg, 25 mg, oral, Nightly, Valarie Edwards MD, 25 mg at 06/11/21 2137 ??? gabapentin (NEURONTIN) capsule 300 mg, 300 mg, oral, TID PRN, Juanita Burks MD, 300 mg at 06/12/21 1111 ??? [Held by Provider] hydroCHLOROthiazide (HYDRODIURIL) tablet 12.5 mg, 12.5 mg, oral, Daily, Valarie Edwards MD ??? [Held by Provider] lisinopriL (PRINIVIL,ZESTRIL) tablet 20 mg, 20 mg, oral, Daily, Valarie Edwards MD ??? ondansetron ODT (ZOFRAN-ODT) disintegrating tablet 4 mg, 4 mg, oral, Q6H PRN OR [DISCONTINUED] ondansetron (ZOFRAN) injection 4 mg, 4 mg, intravenous, Q6H PRN, Yamilet Faustin MD ??? pantoprazole DR (PROTONIX) extended release tablet 40 mg, 40 mg, oral, Daily, Valarie Edwards MD, 40 mg at 06/11/21 0807 ??? polyethylene glycol (MIRALAX) packet 17 g, 17 g, oral, Daily PRN, Yamilet Faustin MD ??? ramelteon (ROZEREM) tablet 8 mg, 8 mg, oral, Nightly PRN, Valarie Edwards MD ??? sodium chloride 0.9% flush 0.5-20 mL, 0.5-20 mL, intra-catheter, Q8H JUSTIN, Yamilet Faustin MD, 10 mL at 06/12/21 0445 ??? sodium chloride 0.9% flush 0.5-20 mL, 0.5-20 mL, intra-catheter, PRN, Yamilet Faustin MD, 10 mL at 06/11/21 0810 ??? sodium chloride 0.9% infusion, 75 mL/hr, intravenous, Continuous, Emely Moss NP, Last Rate: 75 mL/hr at 06/11/216, 75 mL/hr at 06/11/21 2146 ??? tamsulosin (FLOMAX) extended release capsule 0.4 mg, 0.4 mg, oral, Daily with dinner, Valarie Edwards MD ??? traMADoL (ULTRAM) tablet 50 mg, 50 mg, oral, Q6H PRN, Valarie Edwards MD, 50 mg at 06/12/21 1111 ??? umeclidinium (INCRUSE ELLIPTA) 62.5 mcg/actuation inhaler 62.5 mcg, 1 puff, inhalation, Daily, Benny Carpenter MD, 62.5 mcg at 06/12/21 0926 ??? vancomycin 1500 mg/515 mL in sodium chloride 0.9% (premix) 1,500 mg, 15 mg/kg, intravenous, Q24H, Samra Hurtado NP, 1,500 mg at 06/12/21 0001 Diet: Dietary Orders (From admission, onward) Start Ordered 06/12/21 0001 NPO Diet Diet effective midnight 06/11/21 1327 Is&Os: I/O last 2 completed shifts: In: 2726.3 [P.O.:800; I.V.:1391.3; IV Piggyback:535] Out: 1200 [Urine:1200] I/O this shift: In: 20 [P.O.:20] Out: 450 [Urine:450] Physical Exam: 24hr Min/Max: Temp Min: 36.5 ??C (97.7 ??F) Max: 37.1 ??C (98.7 ??F) Pulse Min: 81 Max: 89 BP Min: 104/54 Max: 154/67 Resp Min: 18 Max: 18 SpO2 Min: 92 % Max: 97 % Vitals: 06/12/21 0738 BP: 123/61 Pulse: 89 Resp: 18 Temp: 37.1 ??C (98.7 ??F) SpO2: 92% Constitutional: alert and oriented x3 and no acute distress HEENT: Pupils equal, EOMs grossly normal, mucous membranes moist Respiratory: clear to auscultation bilaterally and respirations unlabored on 2L NC Abdomen: soft, non-distended Skin: warm, well perfused and extremities non-edematous Active and Removed None Labs/Imaging: Recent Labs Lab Units 06/11/21213306/10/21 2304 WBC K/cumm 26.4* 32.0* HEMOGLOBIN g/dL 9.2* 10.5* HEMATOCRIT % 29.6* 32.8* PLATELETS K/cumm 196 186 Recent Labs Lab Units 06/11/21213306/11/21 1158 06/10/21 2304 SODIUM mmol/L 135 130* 130* POTASSIUM PLASMA mmol/L 5.1* 5.2* 5.6* CHLORIDE mmol/L 101 96* 96* CO2 mmol/L 27 26 26 BUN SERUM mg/dL 47* 43* 42* CREATININE mg/dL 2.38* 2.36* 2.35* GLUCOSE mg/dL 102 76 92 CALCIUM mg/dL 8.6 8.6 9.1 Recent Labs Lab Units 06/11/212133 PROTIME (PT) sec 15.7* INR 1.4* XR Chest 1 View Result Date: 06/11/2021 The current study is compared with the prior radiograph dated CT dated 06/08/2021. Left subclavian atrioventricular pacemaker is noted, the ventricular lead is near the tricuspid valve. Loculated left effusion/empyema appears similar in configuration to CT. Associated patchy opacities may represent atelectasis or pneumonia. The right lung is clear with no pleural effusion. There is no pneumothorax. Cardiomediastinal silhouette is normal and unchanged. Dictated by: Ranulfo Tariq M.D. The radiology attending physician has personally reviewed this study, and had reviewed and/or editedthis written report and agrees with it. Electronically signed by: Saniya Tapia M.D. [place] Outside Reference Result Date: 06/10/2021 These images are for Reference purposes only and have not been reviewed by [facility]. There will be no report generated by a [facility] Radiologist. US Outside Reference Result Date: 06/10/2021 These images are for Reference purposes only and have not been reviewed by [facility]. There will be no report generated by a [facility] Radiologist. XR Outside Reference Result Date: 06/10/2021 These images are for Reference purposes only and have not been reviewed by [facility]. There will be no report generated by a [facility] Radiologist. XR Outside Reference Result Date: 06/10/2021 These images are for Reference purposes only and have not been reviewed by [facility]. There will be no report generated by a [facility] Radiologist. CT Body Outside Consult Result Date: 06/11/2021 1. Moderate left-sided pleural effusion in keeping with known empyema. Left lower lobe opacity could represent atelectasis or pneumonia. Lack of intravenous contrast limits evaluation for pleural andlung enhancement. 2. Aortic arch penetrating atherosclerotic ulcer. [...] images may or may not represent the [place] source data set and thus may contain changes that may lower the accuracy of this second-opinion interpretation. Electronically signed by: Bartolome Kathleen M.D. , PHD CT Body Outside Reference Result Date: 06/10/2021 These images are for Reference purposes only and have not been reviewed by [facility]. There will be no report generated by a [facility] Radiologist. NM Outside Reference Result Date: 06/10/2021 These images are for Reference purposes only and have not been reviewed by [facility]. There will be no report generated by a [facility] Radiologist. Assessment/Plan Hypertension Assessment & Plan Has been normotensive while inpatient -Continue Amlodipine, Carvedilol, clonidine - Lisinopril and HCTZ on hold Hyperkalemia Assessment & Plan K: 5.1 - Lisinopril on hold - AM BMP - monitor on tele CKD (chronic kidney disease) stage 4, GFR 15-29 ml/min ([facility] ([facility]) Assessment & Plan At time of admission: GFR: 27, BUN/Cr: 42/2.35. K: 5.6. No urine charted. No h/o HD - decrease Vanc dose to daily - Avoid other nephrotoxic medications - daily BMP COPD (chronic obstructive pulmonary disease) ([facility]) ([facility]) Assessment & Plan Wears 2L O2 overnight, has ANDRZEJ - continue home inhaler PVD (peripheral vascular disease) ([facility]) ([facility]) Assessment & Plan S/p peripheral artery angioplasty with stent placement x3. Takes Plavix at home. According to OSH records, last dose was 06/03. - hold Plavix Cardiac pacemaker in situ Assessment & Plan 2/2 symptomatic bradycardia, second degree AV block - on Eliquis (last dose 06/06), unknown why? - hold AC * Empyema ([facility]) ([facility]) Assessment & Plan WBC: 26, afebrile. OSH CT shows small to moderate loculated pleural effusion. - OR today for decortication - Continue IV cefe and Vanc - f/u Vanc through - Trend CBC - Will obtain micro results from OSH KATHERINE Shaw For patients or family members viewing this note through [employer] access programs: This note was written as a communication tool between healthcare providers and may contain technical language, terminology and abbreviations that is difficult to interpret without advanced medical training. If you have questions or concerns regarding what is written in this note, please request to speak with the primary medical team taking care of you or your family member or call your PCP for clarification. Please do not call the cell or pager numbers listed in this note, as the provider they are associated with may no longer be involved in your care. * Natalie Chow PT - 06/12/2021 7:39 AM CDT 06/12/21 0739 General PT Missed Visit Reason Procedure/testing/appointment;MD/RN Hold (thoracotomy scheduled today) * Sury Matthew OT - 06/12/2021 7:32 AM CDT Occupational Therapy 06/12/21 0731 General OT Missed Visit Reason Other (comment) (OR today for thoracotomy) * Jony Ruiz - 06/11/2021 3:38 PM CDT Spiritual Care Note Quill Cleaner Jony Ruiz Spiritual Care Services, [facility] 06/11/21 1500 Time Spent Start Time 1527 Stop Time 1528 Time Calculation (min) 1 min Patient Spiritual Assessment Spirituality Assessed Unable to assess Clinical Encounter Type Visited With Patient not available (patient with dr at time of milking machine mechanic's visit) * Jazmin Jackson RN - 06/11/2021 2:40 PM CDT CM Initial Assessment Interview Note Information Obtained From: Patient (06/11/21 1045) Admission Source: Transfer from Hospital Impression: Empyema - management and possible surgical intervention Plan Includes: Case Management will follow for Medical Updates and discharge planning and referrals . CM will collaborate with and clinical team regarding post hospitalization needs for home health group home/therapy, SNF/Rehab/LTAC, DME, PCP follow up and other resources as indicated. Primary Source of Transportation: family Health Insurance Coverage: Medicare/ [facility] Prescription Coverage: [employer] Pharmacy: [facility] Primary Care Provider: Ross Espinosa MD Prior to Admission: Primary Caregiver: Self Support System: Family members Support system contact info (name, phone, availablity): Michelle Schroeder ( sister) [phone] Anjali Wilde (sister) [phone] Home Care Services: No Durable Medical Equipment: Cane (single prong), Walker (wheeled), Oxygen, Nebulizer ([employer] supplier) Living Arrangements: Family members Type of Residence: Private residence Steps in home? : Yes, Outside of home, Yes, Inside home Number of steps inside:: 2 steps Number of steps outside:: 1 steps (06/11/211044) Potential discharge needs include: Home Health: custodial, Physical therapy (06/11/211044) Dialysis: no Behavioral Health Services: Behavioral Health Services: No (06/11/211044) Patient expects to be Discharged to: Private residence (Patient expects to discharge home but this may changed depending on surgery and outcome), (06/11/211044) Additional Information: Lives with his sister Michelle. Independent with care. Patient's Identified Problem/Goal Problem: Ensure acute medical needs are met and that patient has a safe discharge plan. Goal: Secure a discharge plan that patient/family are agreeable with and ensure patient has continuum of care. Case management will follow for discharge planning and send referrals as needed. Goals include: To assure continuity of care, To maximize coping skills, To assure patient is in a safe environment and To assure access to community resources. Plan includes: 1. Collaboration with patient, MD, direct care nurse, Director Heart, Nurse Coordinator and other members of the health care team to assure needed interventions completed. 2. Return patient to optimal level of self-care post discharge. 3. Claims Associate will follow for Discharge Planning - interventions as needed 4. Anticipated level of care at discharge 5. Planned Discharge Disposition Based on a comprehensive family assessment, assistance with instrumental activities of daily livingafter discharge will be provided by patient and sister Through the course of our work I determined that the patient and sister possesses the skill and ability to provide and monitor the care of the patient when he or she returns home. patient and sister has the capacity to provide/monitor/arrange for the care of the patient. Finally, we determined that patient and sister has the knowledge of available resources and that combining them with their existing resources willsuffice to sustain and care for the patient when he or she returns home. The treatment team is aware of this information. All are in agreement with the aftercare plan. Jazmin Jackson RN * Samra Hurtado NP - 06/11/2021 8:08 AM CDT Thoracic Surgery Daily Progress Note Admit: 06/10/2021 8:39 PM Date: June 11, 2021 Length of Stay: 1 Attending: Benny Carpenter* POD:* No surgery found * Subjective History: Freddy Hill is a 70-year-old male with history of COPD, ANDRZEJ, asthma, HTN, AICD, carotid stenosiss/p R CEA, PAD s/p peripheral artery angioplasty with stent placement of LLE who presents as transfer from outside hospital for management of known left-sided empyema. PMH: COPD, ANDRZEJ, asthma, HTN, AICD, carotid stenosis, PAD, arthritis, CKD stage 3 PSH: AICD placement, ventral hernia repair, bilateral hip replacement, carotid endarterectomy, LLE peripheral artery angioplasty with stent placement, tonsillectomy, adenoidectomy Edited by: Valarie Edwards MD at 06/11/2021 0457 Interval History: Mr. Hill arrived from OSH overnight. He is doing well. He has some pain on his left side. Will need to discus with attending regarding plans: surgical vs. Chest tube. Will also obtain some OSH records. Objective Medications: Current Facility-Administered Medications: ??? acetaminophen (TYLENOL) tablet 650 mg, 650 mg, oral, Q4H PRN, 650 mg at 06/11/21 0807 OR [DISCONTINUED] acetaminophen (TYLENOL) 32 mg/mL oral solution 650 mg, 650 mg, feeding tube, Q4H PRN OR [DISCONTINUED] acetaminophen (TYLENOL) suppository 650 mg, 650 mg, rectal, Q4H PRN, Yamilet Faustin MD ??? albuterol 2.5 mg/0.5 mL nebulizer solution 2.5 mg, 2.5 mg, nebulization, TID PRN, Valarie Edwards MD ??? amLODIPine (NORVASC) tablet 10 mg, 10 mg, oral, Daily, Valarie Edwards MD, 10 mg at 06/11/21 0807 ??? atorvastatin (LIPITOR) tablet 40 mg, 40 mg, oral, Daily, Valarie Edwards MD, 40 mg at 06/11/21 0807 ??? bisacodyL (DULCOLAX) suppository 10 mg, 10 mg, rectal, Daily PRN, Yamilet Faustin MD ??? bisacodyl EC (DULCOLAX EC) tablet 10 mg, 10 mg, oral, Daily PRN, Yamilet Faustin MD ??? carvediloL (COREG) tablet 37.5 mg, 37.5 mg, oral, BID, Valarie Edwards MD, 37.5 mg at 06/11/21 0807 ??? cefepime (MAXIPIME) 2,000 mg/20 mL in sterile water (premix) 2,000 mg, 2,000 mg, intravenous, Q8H JUSTIN, Valarie Edwards MD, Last Rate: 40 mL/hr at 06/10/21 2353, 2,000 mg at 06/10/21 2353 ??? cloNIDine (CATAPRES) tablet 0.1 mg, 0.1 mg, oral, BID, Valarie Edwards MD, 0.1 mg at 06/11/21 0807 ??? doxepin (SINEquan) capsule 25 mg, 25 mg, oral, Nightly, Valarie Edwards MD, 25 mg at 06/11/21 0034 ??? gabapentin (NEURONTIN) capsule 300 mg, 300 mg, oral, Daily PRN, Valarie Edwards MD ??? [Held by Provider] hydroCHLOROthiazide (HYDRODIURIL) tablet 12.5 mg, 12.5 mg, oral, Daily, Valarie Edwards MD ??? [Held by Provider] lisinopriL (PRINIVIL,ZESTRIL) tablet 20 mg, 20 mg, oral, Daily, Valarie Edwards MD ??? ondansetron ODT (ZOFRAN-ODT) disintegrating tablet 4 mg, 4 mg, oral, Q6H PRN OR [DISCONTINUED] ondansetron (ZOFRAN) injection 4 mg, 4 mg, intravenous, Q6H PRN, Yamilet Faustin MD ??? pantoprazole DR (PROTONIX) extended release tablet 40 mg, 40 mg, oral, Daily, Valarie Edwards MD, 40 mg at 06/11/21 0807 ??? polyethylene glycol (MIRALAX) packet 17 g, 17 g, oral, Daily PRN, Yamilet Faustin MD ??? ramelteon (ROZEREM) tablet 8 mg, 8 mg, oral, Nightly PRN, Valarie Edwards MD ??? sodium chloride 0.9% flush 0.5-20 mL, 0.5-20 mL, intra-catheter, Q8H JUSTIN, Yamilet Faustin MD, 10 mL at 06/10/216 ??? sodium chloride 0.9% flush 0.5-20 mL, 0.5-20 mL, intra-catheter, PRN, Yamilet Faustin MD ??? tamsulosin (FLOMAX) extended release capsule 0.4 mg, 0.4 mg, oral, Daily with dinner, Valarie Edwards MD ??? traMADoL (ULTRAM) tablet 50 mg, 50 mg, oral, Q6H PRN, Valarie Edwards MD, 50 mg at 06/11/21 0807 ??? umeclidinium (INCRUSE ELLIPTA) 62.5 mcg/actuation inhaler 62.5 mcg, 1 puff, inhalation, Daily (RT), Valarie Edwards MD, 62.5 mcg at 06/11/21 0808 ??? [START ON 06/12/2021] vancomycin 1500 mg/515 mL in sodium chloride 0.9% (premix) 1,500 mg, 15 mg/kg, intravenous, Q24H, Samra Hurtado NP Diet: Dietary Orders (From admission, onward) Start Ordered 06/10/212357 NPO Diet Sips with meds Diet effective now Question: NPO except: Answer: Sips with meds 06/10/212356 Is&Os: No intake/output data recorded. No intake/output data recorded. Physical Exam: 24hr Min/Max: Temp Min: 36.7 ??C (98.1 ??F) Max: 36.8 ??C (98.2 ??F) Pulse Min: 81 Max: 100 BP Min: 114/60 Max: 154/69 Resp Min: 16 Max: 21 SpO2 Min: 95 % Max: 98 % Vitals: 06/11/21 0752 BP: 135/62 Pulse: 92 Resp: 16 Temp: 36.8 ??C (98.2 ??F) SpO2: 98% Constitutional: alert and oriented x3 and no acute distress HEENT: Pupils equal, EOMs grossly normal, mucous membranes moist Respiratory: course/diminished to auscultation bilaterally and respirations unlabored on 3L NC Abdomen: soft, non-distended Skin: warm, well perfused and extremities non-edematous Active and Removed None Labs/Imaging: Recent Labs Lab Units 06/10/21 2304 WBC K/cumm 32.0* HEMOGLOBIN g/dL 10.5* HEMATOCRIT % 32.8* PLATELETS K/cumm 186 Recent Labs Lab Units 06/10/21 2304 SODIUM mmol/L 130* POTASSIUM PLASMA mmol/L 5.6* CHLORIDE mmol/L 96* CO2 mmol/L 26 BUN SERUM mg/dL 42* CREATININE mg/dL 2.35* GLUCOSE mg/dL 92 CALCIUM mg/dL 9.1 US Outside Reference Result Date: 06/10/2021 These images are for Reference purposes only and have not been reviewed by [facility]. There will be no report generated by a [facility] Radiologist. US Outside Reference Result Date: 06/10/2021 These images are for Reference purposes only and have not been reviewed by [facility]. There will be no report generated by a [facility] Radiologist. XR Outside Reference Result Date: 06/10/2021 These images are for Reference purposes only and have not been reviewed by [facility]. There will be no report generated by a [facility] Radiologist. XR Outside Reference Result Date: 06/10/2021 These images are for Reference purposes only and have not been reviewed by [facility]. There will be no report generated by a [facility] Radiologist. CT Body Outside Reference Result Date: 06/10/2021 These images are for Reference purposes only and have not been reviewed by [facility]. There will be no report generated by a [facility] Radiologist. NM Outside Reference Result Date: 06/10/2021 These images are for Reference purposes only and have not been reviewed by [facility]. There will be no report generated by a [facility] Radiologist. Assessment/Plan Hypertension Assessment & Plan Has been normotensive while inpatient -Continue Amlodipine, Carvedilol, clonidine - Lisinopril and HCTZ on hold Hyperkalemia Assessment & Plan K: 5.6 on BMP, whole blood K 5.4 - received Lokelma o/n - Lisinopril on hold - BMP this afternoon - monitor on tele CKD (chronic kidney disease) stage 4, GFR 15-29 ml/min ([facility]) ([facility]) Assessment & Plan At time of admission: GFR: 27, BUN/Cr: 42/2.35. K: 5.6. No urine charted. No h/o HD - decrease Vanc dose to daily - Avoid other nephrotoxic medications - daily BMP COPD (chronic obstructive pulmonary disease) ([facility]) ([facility]) Assessment & Plan Wears 2L O2 overnight, has ANDRZEJ - continue home inhaler PVD (peripheral vascular disease) ([facility]) ([facility]) Assessment & Plan S/p peripheral artery angioplasty with stent placement x3. Takes Plavix at home. According to OSH records, last dose was 06/03. - hold Plavix Cardiac pacemaker in situ Assessment & Plan 2/2 symptomatic bradycardia, second degree AV block - on Eliquis (last dose 06/06), unknown why? - hold AC * Empyema ([facility]) ([facility]) Assessment & Plan WBC: 32, afebrile. OSH CT shows small to moderate loculated pleural effusion. - Chest tube vs OR planning - NPO until plan determined - Continue IV cefe and Vanc - Trend CBC - Will obtain micro results from OSH Samra Hurtado NP-C For patients or family members viewing this note through [employer] programs: This note was written as a communication tool between healthcare providers and may contain technical language, terminology and abbreviations that is difficult to interpret without advanced medical training. If you have questions or concerns regarding what is written in this note, please request to speak with the primary medical team taking care of you or your family member or call your PCP for clarification. Please do not call the cell or pager numbers listed in this note, as the provider they are associated with may no longer be involved in your care. Cosigned by Benny Carpenter MD at 06/11/2021 12:41 PM CDT documented in this encounter H&P Notes * Valarie Edwards MD - 06/10/2021 11:56 PM CDT Thoracic Surgery History and Physical Admission Date: 06/10/2021 Attending: Benny López MD Freddy Hill is a 70 y.o. male with chief complaint of shortness of breath and left-sided chest pain. HPI: 70-year-old male with history of COPD, ANDRZEJ, asthma, HTN, AICD, carotid stenosis s/p R CEA, PADs/p peripheral artery angioplasty with stent placement of LLE who presents as transfer from outsidehospital with known left-sided empyema. The patient originally presented to OSH with shortness of breath and left sided chest pain as he had become increasingly short of breath at home. He was started on azithromycin and prednisone taper at the time with no relief. Chest-xray showed left-sided airspace disease and pleural effusion with leukocytosis to 42.4. Chest CT on 06/04 demonstrated multiloculated, possibly malignant, left pleuraleffusion. This was at first managed medically with antibiotic treatment as the patient declined drainage. However, he did not have symptomatic improvement and later opted for drainage. Drained pleural fluid was thick and purulent and sent for testing. The patient was transferred here for further man agement and possible need for surgical intervention. The following conditions are considered present on admission and being treated, or evaluated. Chronic Kidney Disease: Stage 3 = eGRF 30-59 Sepsis/Infection empyema Pulmonary Disease: ANDRZEJ, COPD and Asthma Respiratory Conditions: Chronic Respiratory Failure Diabetes Mellitus: Type 2 DM (if complication present, then include as diagnosis) Peripheral Vascular Disease: Peripheral vascular disease and Presence of vascular implants Debility: Chronic fatigue ECOG Performance Status: 1 - Symptomatic but completely ambulatory. Restricted in physically strenuous activity but ambulatory and able to carry out work of a light or sedentary nature (e.g., light housework, office work). Past Medical History: Diagnosis Date ??? Anemia ??? Arthritis ??? COPD (chronic obstructive pulmonary disease) (CMS/HCC) ([facility]) ??? GERD (gastroesophageal reflux disease) ??? Hypertension Past Surgical History: Procedure Laterality Date ??? HERNIA REPAIR ??? INSERT / REPLACE / REMOVE PACEMAKER HOME MEDICATIONS : albuterol 2.5 mg /3 mL (0.083 %) nebulizer solution albuterol HFA (PROVENTIL HFA,VENTOLIN HFA,PROAIR HFA) 90 mcg/actuation inhaler amLODIPine (NORVASC) 10 mg tablet apixaban (ELIQUIS) 2.5 mg tablet atorvastatin (LIPITOR) 40 mg tablet carvediloL (COREG) 25 mg tablet cetirizine 10 mg capsule cloNIDine (CATAPRES) 0.1 mg tablet clopidogreL (PLAVIX) 75 mg tablet doxepin (SINEquan) 25 mg capsule dupilumab (DUPIXENT) syringe gabapentin (NEURONTIN) 300 mg capsule hydroCHLOROthiazide (MICROZIDE) 12.5 mg capsule lisinopriL (PRINIVIL,ZESTRIL) 20 mg tablet melatonin 5 mg capsule multivitamin capsule omeprazole (PriLOSEC) 20 mg capsule Spiriva Respimat 2.5 mcg/actuation inhaler tamsulosin (FLOMAX) 0.4 mg extended release capsule traMADoL (ULTRAM) 50 mg tablet No Known Allergies Social History Tobacco Use ??? Smoking status: Former Smoker Quit date: 08/22/2009 Years since quittin.8 ??? Smokeless tobacco: Never Used Substance Use Topics ??? Alcohol use: Not on file 2 packs x 40 years Family History Problem Relation Age of Onset ??? Asthma Mother ??? Diabetes Mother ??? Hypertension Mother ??? Hypertension Father ??? Heart disease Father Review of Systems: Review of Systems Constitutional: Positive for chills, fatigue and fever. Negative for appetite change. HENT: Negative for ear pain, hearing loss and sore throat. Eyes: Negative for pain. Respiratory: Positive for shortness of breath. Negative for cough and wheezing. Cardiovascular: Positive for chest pain and leg swelling. Negative for palpitations. On left side Gastrointestinal: Negative for abdominal pain, constipation, diarrhea, nausea and vomiting. Genitourinary: Negative for difficulty urinating. Musculoskeletal: Negative for back pain and neck pain. Skin: Negative for color change and rash. Neurological: Negative for dizziness, weakness, numbness and headaches. Vitals: Patient Vital Signs for the past 24 hrs: BP MAP (mmHg) Temp Temp src Pulse Resp SpO2 Height Weight 06/10/21 2200 154/69 90 36.8 ??C (98.2 ??F) Oral 95 18 97 % -- -- 06/10/21 2100 -- -- -- -- -- -- 95 % -- -- 06/10/21 2051 146/67 86 36.7 ??C (98.1 ??F) Oral 100 21 96 % 172.7 cm (5' 8) 94.6 kg (208 lb 8 oz) Objective Physical exam: Must include at least two elements each from 9 organ systems for a comprehensive exam Physical Exam Constitutional: Appearance: Normal appearance. HENT: Head: Normocephalic and atraumatic. Cardiovascular: Rate and Rhythm: Regular rhythm. Tachycardia present. Pulses: Normal pulses. Pulmonary: Effort: Pulmonary effort is normal. Comments: Decreased breath sounds bilaterally Abdominal: General: Abdomen is flat. Palpations: Abdomen is soft. Musculoskeletal: General: Normal range of motion. Neurological: Mental Status: He is alert and oriented to person, place, and time. Psychiatric: Mood and Affect: Mood normal. Behavior: Behavior normal. Lab/Radiology/Diagnostic Review: Lab results in the last 24 hours: Recent Results (from the past 24 hour(s)) CBC with auto differential Collection Time: 06/10/21 11:04 PM Result Value Ref Range WBC 32.0 (H) 3.8 - 9.9 K/cumm Hgb 10.5 (L) 13.0 - 17.5 g/dL Hct 32.8 (L) 38.9 - 50.3 % Plt 186 150 - 400 K/cumm MPV 11.4 9.1 - 12.3 fL RBC 3.59 (L) 4.30 - 5.80 M/cumm MCV 91.4 81.3 - 96.4 fL MCH 29.2 27.1 - 33.3 pg MCHC 32.0 (L) 32.3 - 35.7 g/dL RDW CV 13.9 11.1 - 14.9 % RDW SD 46.8 35.7 - 48.1 fL NRBC abs 0.00 0.00 - 0.01 K/cumm Comprehensive metabolic panel Collection Time: 06/10/21 11:04 PM Result Value Ref Range Sodium 130 (L) 135 - 145 mmol/L Potassium, pl 5.6 (H) 3.3 - 4.9 mmol/L Chloride 96 (L) 97 - 110 mmol/L CO2 26 22 - 32 mmol/L Anion gap 8 2 - 15 mmol/L BUN 42 (H) 8 - 25 mg/dL Creatinine 2.35 (H) 0.80 - 1.30 mg/dL Glucose 92 70 - 199 mg/dL Calcium 9.1 8.5 - 10.3 mg/dL Bilirubin, total 0.3 0.1 - 1.2 mg/dL Protein, pl 6.9 6.5 - 8.5 g/dL Albumin 2.8 (L) 3.5 - 5.0 g/dL Alk phos 121 40 - 130 Units/L ALT 24 7 - 55 Units/L AST 26 10 - 50 Units/L Magnesium Collection Time: 06/10/21 11:04 PM Result Value Ref Range Magnesium 1.9 1.4 - 2.5 mg/dL Phosphorus Collection Time: 06/10/21 11:04 PM Result Value Ref Range Phosphorus, pl 3.0 2.3 - 4.5 mg/dL Differential, auto Collection Time: 06/10/21 11:04 PM Result Value Ref Range Neutrophil abs 26.8 (H) 1.7 - 6.5 K/cumm Imm gran abs 2.5 (H) 0.0 - 0.1 K/cumm Lymphocyte abs 0.8 0.8 - 3.3 K/cumm Monocyte abs 1.8 (H) 0.2 - 0.8 K/cumm Eosinophil abs 0.1 0.0 - 0.5 K/cumm Basophil abs 0.1 0.0 - 0.1 K/cumm Neutrophil pct 83.6 % Imm gran pct 7.7 % Lymphocyte pct 2.4 % Monocyte pct 5.7 % Eosinophil pct 0.4 % Basophil pct 0.2 % eGFR Collection Time: 06/10/21 11:04 PM Result Value Ref Range eGFR 27 (L) 90 - 130 mL/min/1.73 m2 , Chemistry CMP: Lab Results Component Value Date ALBUMIN 2.8 (L) 06/10/2021 BUNSER 42 (H) 06/10/2021 CALCIUM 9.1 06/10/2021 CO2 26 06/10/2021 CHLORIDE 96 (L) 06/10/2021 CREATININE 2.35 (H) 06/10/2021 GLUCOSE 92 06/10/2021 POTASSIUM 5.6 (H) 06/10/2021 SODIUM 130 (L) 06/10/2021 BILITOT 0.3 06/10/2021 PROT 6.9 06/10/2021 ALT 24 06/10/2021 AST 26 06/10/2021 ALKPHOS 121 06/10/2021 , CBC: Lab Results Component Value Date WBC 32.0 (H) 06/10/2021 RBC 3.59 (L) 06/10/2021 HGB 10.5 (L) 06/10/2021 HCT 32.8 (L) 06/10/2021 MCV 91.4 06/10/2021 MCH 29.2 06/10/2021 MCHC 32.0 (L) 06/10/2021 RDWCV 13.9 06/10/2021 RDWSD 46.8 06/10/2021 MPV 11.4 06/10/2021 NRBCABS 0.00 06/10/2021 , Coags: No results found for: PT, PTT, APTT, FFN, FIBRINOGEN, INR, ACTIVATEDCL, Lipids: No results found for: CHOL, CHLPL, HDL, LDLCALC, TRIG, CHOLHDL, Cardiac Enzymes: No results found for: CKTOTAL, CKMB, CKMBINDEX, TROPONINT and POC Glucose: Lab Results Component Value Date GLUCOSE 92 06/10/2021 US Outside Reference Narrative: EXAMINATION: Images For Reference Purposes Only Impression: These images are for Reference purposes only and have not been reviewed by [facility]. There will be no report generated by a [facility] Radiologist. XR Outside Reference Narrative: EXAMINATION: Images For Reference Purposes Only Impression: These images are for Reference purposes only and have not been reviewed by [facility]. There will be no report generated by a [facility] Radiologist. XR Outside Reference Narrative: EXAMINATION: Images For Reference Purposes Only Impression: These images are for Reference purposes only and have not been reviewed by [facility]. There will be no report generated by a [facility]iologist. NM Outside Reference Narrative: EXAMINATION: Images For Reference Purposes Only Impression: These images are for Reference purposes only and have not been reviewed by [facility]. There will be no report generated by a [facility] Radiologist. CT Body Outside Reference Narrative: EXAMINATION: Images For Reference Purposes Only Impression: These images are for Reference purposes only and have not been reviewed by [facility]. There will be no report generated by a [facility] Radiologist. US Outside Reference Narrative: EXAMINATION: Images For Reference Purposes Only Impression: These images are for Reference purposes only and have not been reviewed by [facility]. There will be no report generated by a [facility]iologist. Principal Problem: Empyema (CMS/HCC) (HCC) Assessment /Plan No new Assessment & Plan notes have been filed under this hospital service since the last note was generated. Service: Thoracic Surgery - Keep NPO for possible intervention - Continue IV vanc and cefe - Labs: CMP, CBC, T&S - Chest x-ray Valarie Edwards MD Cosigned by Benny Carpenter MD at 06/11/2021 12:38 PM CDT Associated attestation - Benny Carpenter MD - 06/11/2021 12:38 PM CDT I agree with assessment and plan as written in her note. Based on his CT scan he may need to have surgical intervention to manage this loculated pleural effusion. documented in this encounter Procedure Notes * Graciela Osei RN - 06/19/2021 12:25 AM CDT Vascular Access Nurse: Procedure Note Summary of treatment provided to patient today is as follows : . Bedside Procedure Time out/Checklist (last 4 hours) Pre-Op Checklist Row Name 06/19/21 0000 06/18/21 2300 06/18/21 2200 06/18/21 2100 Patient/Chart Verification Arm Bands On ID;Allergies;Fall -SS ID;Allergies;Fall -SS ID;Allergies;Fall -SS ID;Allergies;Fall -SS User Emery (r) = Recorded By, (t) = Taken By, (c) = Cosigned By Initials Name Sarina He RN Vascular Access Documentation (last 4 hours) [facility] Additional Procedures Row Name 06/19/21 0021 Procedures Line Type Peripheral -KP Time in 0020 -KP Time out 0030 -KP Time Calculation (min) 10 min -KP Vascular Access Procedures Difficult IV start -KP Peripheral IV 06/19/21 22 G Right Forearm IV Properties Placement Date: 06/19/21 -KP Placement Time: 23KP Type: Angiocath -KP Size (Gauge): 22 G -KP Location Orientation: Right -KP Location: Forearm -KP Site Prep: Chlorhexidine -KP Comfort Measures: Position of comfort;Distraction -KP Local Anesthetic: None -KP Technique: Anatomical goyo dmarks -KP Inserted by: sharlene munoz rn -KP Insertion attempts: 1 -KP Patient Tolerance: Tolerated well -KP Site Assessment Clean and dry -KP IV Line Status Single Blood return noted;Flushes easily;Saline locked -KP Dressing Type Transparent -KP Dressing Status New;Clean, dry, intact;Occlusive -KP Dressing Intervention Label applied -KP Dressing Change Due 06/26/21 -KP User Emery (r) = Recorded By, (t) = Taken By, (c) = Cosigned By Initials Name Graciela Cruz RN Plan: Follow up: Graciela Osei RN * Milagro Toth NP - 06/17/2021 3:55 PM CDT Procedures Chest Tube Removal Procedure Note Procedure Details The correct patient's clinical information, tests, and/or imaging results relevant to chest tube removal were reviewed prior to procedure. Chest tube removal was discussed with the Supervising MD. Chest tube removal explained to patient. Verbalized understanding. Soap and water hand washing or use of alcohol-based waterless hand cleanser was performed before and after the procedure. Patient was positioned right side lying with the head of the bed flat. Patient identification was verified. Chest tube Removed: left pleural Chest tube(s) Remaining in place: none Site Sutures Present: yes Chest tube intact: Yes Complications: None; patient tolerated the procedure well. Condition: stable Recommendations Post pull chest x-ray ordered and pending. Notify the staff if you develop sudden shortness of breath or chest pain or if you notice swelling develop. Keep occlusive dressing in place with Vaseline gauze and 4x4 for 48 hours. OK for nursing to change dressing if saturated. After 48 hours, dressing may be removed and patient may shower. Site sutures can be removed in 7-10 days by any MD, FREIGHT CLERK, underground utility locator. Milagro Toth NP For patients or family members viewing this note through [employer] programs: This note was written as a communication tool between healthcare providers and may contain technical language, terminology and abbreviations that is difficult to interpret without advanced medical training. If you have questions or concerns regarding what is written in this note, please request to speak with the primary medical team taking care of you or your family member or call your PCP for clarification. Please do not call the cell or pager numbers listed in this note, as the provider they are associated with may no longer be involved in your care. Cosigned by Benny Carpenter MD at 06/19/2021 9:09 AM CDT documented in this encounter Consult Notes * Filippo Martinez MD - 06/15/2021 8:35 PM CDTAssociated Order(s): IP CONSULT TO NEPHROLOGY Nephrology Consult Reason for Consult: increasing creat and hyperkalemia Requesting Provider: Benny Carpenter MD Subjective Patient is a 70 y.o. male with chief complaint of empyema . Consult requested by: Benny Carpenter MD Reason for consult: increasing creat and hyperkalemia HPI: Mr. Hill is a 70 y/o m w/ PMH of COPD on nightly 2 L O2, CKD stage 3, ANDRZEJ, BA, HTN who was a/w empyema and transferred from [facility] for further Mx I/s/o worsening leukocytosis (42 k ). Underwent thoracotomy and decortication on 06/12. Received abx both at OSH and here. vanc levels elevated. Developed ALFREDO. Renal c/s for ALFREDO Renal Hx : Pt states he has kidney disease, likely stage 3 -4. 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 PCP currently monitoring renal function He recently moved to [place]. . Used to get all his care in [place] at [facility]. No h/o renal stones. He had renal failure once in 2013 at the time of hip replacement. He Was told his kidneys stopped working for 1 week. 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 He had recent labs at [facility] last month He takes lasix as needed at home for leg swelling or weight gain Past Medical History: Diagnosis Date ??? Anemia ??? Arthritis ??? Asthma ??? AV block Jun 2020 PM insertion ??? Carotid stenosis s/p right CEA ??? CKD (chronic kidney disease) stage 3, GFR 30-59 ml/min ([facility]) ??? Claudication (CMS/HCC) ([facility]) ??? COPD (chronic obstructive pulmonary disease) (CMS/HCC) ([facility]) ??? COVID-19 05/2020 hospitalization 3 days ??? Empyema (CMS/HCC) ([facility]) 05/2020 ??? GERD (gastroesophageal reflux disease) ??? Hyperkalemia ??? Hypertension ??? PAD (peripheral artery disease) (CMS/HCC) (HCC) ??? Pneumonia 2018 ??? Sleep apnea Past Surgical History: Procedure Laterality Date ??? CAROTID ENARTERECTOMYY Right 2013 ??? COLONOSCOPY ??? HERNIA REPAIR 2016 ventral [...] Take 10 mg by mouth daily ??? apixaban (ELIQUIS) 2.5 mg tablet Take 2.5 mg by mouth 2 (two) times a day ??? atorvastatin (LIPITOR) 40 mg tablet Take 40 mg by mouth daily ??? carvediloL (COREG) 25 mg tablet Take 1.5 tablets by mouth 2 (two) times a day ??? cetirizine 10 mg capsule Take by mouth ??? cloNIDine (CATAPRES) 0.1 mg tablet TAKE 1 TABLET BY MOUTH TWICE A DAY FOR BLOOD PRESSURE ??? clopidogreL (PLAVIX) 75 mg tablet Take 75 mg by mouth daily ??? doxepin (SINEquan) 25 mg capsule Take 25 mg by mouth nightly ??? dupilumab (DUPIXENT) syringe Inject 300 mg under the skin every 14 (fourteen) days ??? gabapentin (NEURONTIN) 300 mg capsule Take 300 mg by mouth daily as needed ??? hydroCHLOROthiazide (MICROZIDE) 12.5 mg capsule Take 12.5 mg by mouth daily ??? lisinopriL (PRINIVIL,ZESTRIL) 20 mg tablet Take 20 mg by mouth daily ??? melatonin 5 mg capsule Take by mouth ??? multivitamin capsule Take 1 capsule by mouth daily ??? omeprazole (PriLOSEC) 20 mg capsule TAKE 1 CAPSULE BY MOUTH EVERY MORNING BEFORE BREAKFAST ??? Spiriva Respimat 2.5 mcg/actuation inhaler INHALE 2 PUFFS BY MOUTH ONCE DAILY ??? tamsulosin (FLOMAX) 0.4 mg extended release capsule TAKE 1 CAPSULE BY MOUTH EVERY DAY 30 MINUTES BEFORE THE SAME MEAL ??? traMADoL (ULTRAM) 50 mg tablet Take 50 mg by mouth every 6 (six) hours as needed No Known Allergies Social History Tobacco Use ??? Smoking status: Former Smoker Quit date: 08/22/2009 Years since quittin.8 ??? Smokeless tobacco: Never Used Substance Use Topics ??? Alcohol use: Not on file Family History Problem Relation Age of Onset ??? Asthma Mother ??? Diabetes Mother ??? Hypertension Mother ??? Hypertension Father ??? Heart disease Father Reviewed and non-contributory Review of Systems: All other review of systems is negative Objective Vitals: 24hr Min/Max: Temp Min: 36.5 ??C (97.7 ??F) Max: 36.8 ??C (98.3 ??F) Pulse Min: 80 Max: 96 BP Min: 100/62 Max: 131/65 Resp Min: 18 Max: 20 SpO2 Min: 90 % Max: 98 % Most Recent: Vitals: 06/15/212007 BP: 131/65 Pulse: 96 Resp: 18 Temp: 36.7 ??C (98 ??F) SpO2: 90% Physical Exam: General appearance: appears stated age, cooperative and no distress HENT: Head: Normocephalic, without obvious abnormality Eyes: conjunctivae/corneas clear. PERRL, EOMs intact, anicteric Neck: no JVD and supple, symmetrical, trachea midline Lungs: clear to auscultation bilaterally Cardiovascular: regular rate and rhythm, S1, S2 normal, no murmur, click, rub or gallop Abdomen: soft, non-tender; bowel sounds normal; no masses, no flank tenderness, no organomegaly Extremities: 1+ b/l le edema, no redness or tenderness in the calves or thighs Skin: Skin color, texture, turgor normal. No rashes or lesions Neurologic: Alert and oriented x4, non-focal Dialysis Access Exam: NA I/O last 2 completed shifts: In: 20 [I.V.:20] Out: 2245 [Urine:2140; Chest Tube:105] No intake/output data recorded. Lab/Radiology/Diagnostic Review: Laboratory review: Recent Labs Lab Units 06/14/21203206/14/212106/13/21 0751 WBC K/cumm 21.0* 25.8* 31.3* HEMOGLOBIN g/dL 7.2* 7.3* 8.2* PLATELETS K/cumm 182 222 214 Recent Labs Lab Units 06/15/21 1047 06/14/21203206/14/21 0022 06/13/21 0751 06/12/21 1213 06/11/21 1158 06/10/21 2304 SODIUM mmol/L 136 136 136 < > -- < > 130* POTASSIUM PLASMA mmol/L 5.2* 5.2* 5.1* < > -- < > 5.6* CHLORIDE mmol/L 99 103 102 < > -- < > 96* CO2 mmol/L 26 25 25 < > -- < > 26 BUN SERUM mg/dL 55* 56* 50* < > -- < > 42* CREATININE mg/dL 3.43* 3.02* 2.83* < > -- < > 2.35* ALBUMIN g/dL -- -- -- -- -- -- 2.8* CALCIUM mg/dL 8.5 8.3* 8.1* < > -- < > 9.1 MAGNESIUM mg/dL -- 1.8 -- -- -- -- 1.9 PHOSPHORUS PLASMA mg/dL -- 4.2 -- -- -- -- 3.0 VANCOMYCIN TR mcg/mL -- -- 39.2* -- 44.1* -- -- < > = values in this interval not displayed. Lab Results Component Value Date CALCIUM 8.5 06/15/2021 CAION 4.64 06/12/2021 PHOS 4.2 06/14/2021 No results found for: IRON, TIBC, TRANSFERSAT, FERRITIN Imaging review: I have reviewed the result(s) XR Chest 1 View Narrative: EXAMINATION: 1 view chest radiograph 1 view chest radiograph Impression: 06/15/2021 taken at 12:22 AM: 1 view of the chest is submitted for interpretation. Comparison is made to 06/12/2021. 2 left thoracostomy tubes. Left subclavian venous approach pacer maker leads in unchanged position. Unchanged loculated left pleural [...] Ilir Rodríguez M.D. XR Chest 1 View Narrative: EXAMINATION: 1 view chest radiograph 1 view chest radiograph Impression: 06/15/2021 taken at 12:22 AM: 1 view of the chest is submitted for interpretation. Comparison is made to 06/12/2021. 2 left thoracostomy tubes. Left subclavian venous approach pacer maker leads in unchanged position. Unchanged loculated left pleural [...] it. Electronically signed by: Ilir Rodríguez M.D. Assessment /Plan Principal Problem: Empyema (CMS/HCC) ([facility]) Active Problems: Cardiac pacemaker in situ PVD (peripheral vascular disease) (CMS/HCC) ([facility]) COPD (chronic obstructive pulmonary disease) (CMS/HCC) ([facility]) CKD (chronic kidney disease) stage 4, GFR 15-29 ml/min (CMS/HCC) ([facility]) Hyperkalemia Hypertension Anemia # Non oliguric ALFREDO on CKD - no b/l Cr on file. 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 - Cr on admission 2.35 --> 2.4--> 2.8 --> 3.4. - UOP relatively decreased today - Etiology of ALFREDO likely multifactorial - sepsis, hemodynamic changes, medication (vanc toxicity). - vanc trough levels 44.1 on 06/12 and 29.2 on 06/14. - hold vanc. Monitor levels - renally dose medications. - lasix 40 IV x 1 - obtain renal panel from [facility]. 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 Perez in AM Filippo Martinez Nephrology Fellow Consult 1 Service Contact (phone): [phone] After hours and weekends: please page [phone] Cosigned by Genaro Perez MD at 06/16/2021 10:51 AM CDT Associated attestation - Genaro Perez MD - 06/16/2021 10:51 AM CDT I have seen and examined the patient on 06/16/21. I agree with the findings and plan of care as documented in the resident's/fellow's note.This patient was seen and staffed by the attending physicianon 06/16/2021 Hopefully the patient has reached a plateau of serum creatinine. Not clear as to what the baseline creatinine actually is. Continue to monitor. * Malini Fernandez MD - 06/15/2021 9:14 AM CDTAssociated Order(s): CONSULT TO GENERAL INFECTIOUS DISEASE Infectious Disease Initial Consult Note Infectious Disease Team: General 3 Contact Information: Please see EPIC Treatment Team listing for up-to-date contact information. Requesting Physician: Benny Carpenter* Reason for Consult: Diagnostic and treatment recommendations, as well as assistance with follow up care. Subjective Chief Complaint: Empyema HPI: The patient is a 70 y.o. male with PMH of COPD, ANDRZEJ, asthma, CKD, HTN, AICD, carotid stenosis s/p RCEA, PAD s/p angioplasty with stent placement LLE who was transferred from OSH for left empyema. Patient reports he has been having persistent left sided chest pain with cough and fevers that started about 1 month ago. Due to concern for CAP he was treated by his PCP with course of azithro and prednisone taper with some relief of his symptoms. However he reported worsening symptoms and was given a second course without improvement and he was directed to OSH ED at [facility]. CXR showed left airspace disease and pleural effusion with leukocytosis 42.4. CT chest 06/04 showed small to moderate multiloculated left pleural effusion consistent with empyema which was managed medically with antibiotics as patient declined drainage. Due to lack of improvement he later underwent thoracentesis on 06/08 with removal of thick purulent fluid and cultures from pleural fluid grew Strep intermedius. He was admitted there for 1 week and received IV antibiotics, transferred here on 06/10 for surgical evaluation. Since arrival he has been afebrile and HDS. Labs with leukocytosis of 32. He was continued on vancomycin and cefepime. He underwent left thoracotomy with decortication on 06/12. Intraop findings included several fluid collections interiorly and posteriorly with several abscesses in lower lobe, ableto decorticate to reinflate the lower lobe although consolidated in some area, also created a pleural tent. Vancomycin was switched to linezolid on 06/14 due to high vanc troughs and continued on cefepime. He has been intermittently requiring supplemental oxygen, today remains on 6L NC. CXR on 06/[address] in placed and mildly decreased left empyema with adjacent pulmonary opacities. Cultures from OR growing Strep intermedius and Staph hominis. Leukocytosis improved to 21. He reports ongoing pain on his left chest and back although breathing has improved. He reports he usually uses oxygen at night due to COPD and ANDRZEJ and not during the day, he is currently on 2L NC. He is former smoker, socially drinks alcohol and no illicit drug use. Past Medical History: Diagnosis Date ??? Anemia ??? Arthritis ??? Asthma ??? AV block Jun 2020 PM insertion ??? Carotid stenosis s/p right CEA ??? CKD (chronic kidney disease) stage 3, GFR 30-59 ml/min ([facility]) ??? Claudication (CMS/HCC) (HCC) ??? COPD (chronic obstructive pulmonary disease) (CMS/HCC) (HCC) ??? COVID-19 05/2020 hospitalization 3 days ??? Empyema (CMS/HCC) (HCC) 05/2020 ??? GERD (gastroesophageal reflux disease) ??? Hyperkalemia ??? Hypertension ??? PAD (peripheral artery disease) (CMS/HCC) (HCC) ??? Pneumonia 2019 ??? Sleep apnea Past Surgical History: Procedure Laterality Date ??? CAROTID ENARTERECTOMYY Right 2014 ??? COLONOSCOPY ??? HERNIA REPAIR 2016 ventral ??? HIP ARTHROPLASTY Bilateral left 2009, right 2003 ??? INSERT / REPLACE / REMOVE PACEMAKER 06/2020 Medtronic dula lead PM ??? OTHER SURGICAL HISTORY 2020 surgical and endovascular intervention LLE-3 stents ??? TONSILLECTOMY HOME MEDICATIONS : albuterol 2.5 mg /3 mL (0.083 %) nebulizer solution albuterol HFA (PROVENTIL HFA,VENTOLIN HFA,PROAIR HFA) 90 mcg/actuation inhaler amLODIPine (NORVASC) 10 mg tablet apixaban (ELIQUIS) 2.5 mg tablet atorvastatin (LIPITOR) 40 mg tablet carvediloL (COREG) 25 mg tablet cetirizine 10 mg capsule cloNIDine (CATAPRES) 0.1 mg tablet clopidogreL (PLAVIX) 75 mg tablet doxepin (SINEquan) 25 mg capsule dupilumab (DUPIXENT) syringe gabapentin (NEURONTIN) 300 mg capsule hydroCHLOROthiazide (MICROZIDE) 12.5 mg capsule lisinopriL (PRINIVIL,ZESTRIL) 20 mg tablet melatonin 5 mg capsule multivitamin capsule omeprazole (PriLOSEC) 20 mg capsule Spiriva Respimat 2.5 mcg/actuation inhaler tamsulosin (FLOMAX) 0.4 mg extended release capsule traMADoL (ULTRAM) 50 mg tablet Current Facility-Administered Medications Ordered in Epic Medication Dose Route Frequency Provider Last Rate Last Admin ??? acetaminophen (TYLENOL) tablet 650 mg 650 mg oral Q6H PRN Valarie Edwards MD 650 mg at 06/15/21 0606 ??? albuterol 2.5 mg/0.5 mL nebulizer solution 2.5 mg 2.5 mg nebulization TID PRN (RT) Talon Resendiz MD 2.5 mg at 06/14/212210 ??? amLODIPine (NORVASC) tablet 10 mg 10 mg oral Daily Marco A Ward MD 10 mg at 06/15/21 0900 ??? atorvastatin (LIPITOR) tablet 40 mg 40 mg oral Daily Marco A Ward MD 40 mg at ??? bisacodyl EC (DULCOLAX EC) tablet 10 mg 10 mg oral Daily PRN Pradeep Palma MD ??? calcium carbonate (TUMS) chewable tablet 500 mg 200 mg of elemental calcium oral Daily PRN Marco A Ward MD 500 mg at 06/13/212116 ??? carvediloL (COREG) tablet 37.5 mg 37.5 mg oral BID Marco A Ward MD 37.5 mg at ??? cefepime (MAXIPIME) 2,000 mg/20 mL in sterile water (premix) 2,000 mg 2,000 mg intravenous [id number] Marco A Ward MD 40 mL/hr at 06/15/21904 2,000 mg at 06/15/21904 ??? cloNIDine (CATAPRES) tablet 0.1 mg 0.1 mg oral BID Marco A Ward MD 0.1 mg at 06/15/21 0900 ??? doxepin (SINEquan) capsule 25 mg 25 mg oral Nightly Marco A Ward MD 25 mg at 06/13/212110 ??? enoxaparin (LOVENOX) syringe 30 mg 30 mg subcutaneous Daily-2099 Pradeep Palma MD 30 mg at 06/14/212048 ??? lidocaine (LIDODERM) 5 % patch 2 patch 2 patch transdermal Daily Valarie Edwards MD 2 patch at 06/15/214 ??? linezolid (ZYVOX) 600 mg/300 mL in dextrose 5% (premix) 600 mg 600 mg intravenous Q12H [facility] Juanita Burks MD 150 mL/hr at 06/15/21904 600 mg at 06/15/21 0905 ??? ondansetron ODT (ZOFRAN-ODT) disintegrating tablet 4 mg 4 mg oral Q6H PRN Pradeep Palma MD 4 mg at 06/14/21 1138 ??? oxyCODONE (ROXICODONE) tablet 5 mg 5 mg oral Q4H PRN Valarie Edwards MD ??? pantoprazole DR (PROTONIX) extended release tablet 40 mg 40 mg oral Daily Pradeep Palma MD 40 mg at 06/15/21 0900 ??? polyethylene glycol (MIRALAX) packet 17 g 17 g oral Daily PRN Juanita Burks MD 17 g at 06/14/21 0957 ??? ramelteon (ROZEREM) tablet 8 mg 8 mg oral Nightly PRN Marco A Ward MD 8 mg at ??? senna 1.76 mg/mL syrup 8.8 mg 8.8 mg oral BID PRN Juanita Burks MD 8.8 mg at ??? sodium chloride 0.9% flush 0.5-20 mL 0.5-20 mL intra-catheter Q8H [facility] Pradeep Palma MD 10 mL at 06/14/212056 ??? sodium chloride 0.9% flush 0.5-20 mL 0.5-20 mL intra-catheter PRN Pradeep Palma MD 10 mL at 06/11/21 0810 ??? sodium chloride 0.9% flush 0.5-20 mL 0.5-20 mL intra-catheter Q8H [facility] Pradeep Palma MD 10 mL at 06/14/212056 ??? sodium chloride 0.9% flush 0.5-20 mL 0.5-20 mL intra-catheter PRN Pradeep Palma MD ??? tamsulosin (FLOMAX) extended release capsule 0.4 mg 0.4 mg oral Daily with dinner Pradeep Palma MD 0.4 mg at 06/15/21 0900 ??? umeclidinium (INCRUSE ELLIPTA) 62.5 mcg/actuation inhaler 62.5 mcg 1 puff inhalation Daily Juanita Burks MD 62.5 mcg at 06/15/21 0905 No current [facility]-ordered outpatient medications on file. Anti-infectives (From admission, onward) Start Dose/Rate Route Frequency Ordered Stop 06/14/21 0930 linezolid (ZYVOX) 600 mg/300 mL in dextrose 5% (premix) 600 mg 600 mg 150 mL/hr over 2 Hours intravenous Every 12 hours scheduled 06/14/21 0851 06/14/21 0900 cefepime (MAXIPIME) 2,000 mg/20 mL in sterile water (premix) 2,000 mg 2,000 mg 40 mL/hr over 30 Minutes intravenous Every 24 hours scheduled 06/13/21 1438 Active Lines/Ports/Devices: Peripheral IV 06/09/21 20 G Anterior;Left;Proximal Forearm (Active) Number of days: 6 Peripheral IV 20 G Right Antecubital (Active) Number of days: Chest Tube A Left Pleural (Active) Number of days: 3 Chest Tube B Left Pleural (Active) Number of days: 3 Urethral Catheter (Active) Number of days: 1 Patient Allergies: No Known Allergies Social History Social History Narrative ??? Not on file reports that he quit smoking about 11 years ago. He has never used smokeless tobacco. Family history reviewed and non-contributory Family History Problem Relation Age of Onset ??? Asthma Mother ??? Diabetes Mother ??? Hypertension Mother ??? Hypertension Father ??? Heart disease Father Review of Systems: Constitutional: No fevers, chills HEENT: No headache, visual loss or yellow sclerae, no congestion, rhinorrhea or odynophagia. Respiratory: + shortness of breath, cough or sputum. Cardiovascular: No chest pain. Gastrointestinal: No abdominal pain, anorexia, nausea, vomiting or diarrhea. Genitourinary: No dysuria. Musculoskeletal:No muscle pain or back pain. Skin: No rashes or skin lesions. Neurological: No weakness, numbness or tingling. Hematological: No enlarged lymph nodes. All other systems reviewed and are negative. Objective Vitals: 24hr Min/Max: Temp Min: 36.6 ??C (97.9 ??F) Max: 36.9 ??C (98.5 ??F) Pulse Min: 83 Max: 92 BP Min: 104/88 Max: 133/52 Resp Min: 18 Max: 26 SpO2 Min: 87 % Max: 98 % Most Recent : Vitals: 06/15/21 0832 BP: 123/57 Pulse: 87 Resp: 20 Temp: 36.6 ??C (97.9 ??F) SpO2: 92% I/O last 2 completed shifts: In: - Out: 1485 [Urine:1360; Chest Tube:125] Physical Exam: GENERAL: Awake, not in cardiorespiratory distress HEENT: Anicteric sclerae, pink conjunctivae, moist mucosae, no pharyngeal erythema, no neck masses.On NC 2L. LUNGS: Decreased BS on left lung base. Surgical incision c/d/i, CT x2 in place with SS output. HEART: No heart murmurs, no gallops ABDOMEN: Nondistended, nontender, and soft abdomen EXTREMITY: Left hand and forearm pitting edema, improving per pt. DERM: No exanthems or enanthems LYMPH: No cervical or inguinal lymphadenopathy NEURO: Oriented to time, place, person; pupils equally reactive to light, cranial nerves intact, nomotor or sensory deficits Lab/Radiology/Diagnostic Review: I reviewed the laboratory result(s). Recent Labs: Microbiology: Lab Results Component Value Date MICROBIOLOGY Preliminary Report: No growth to date. 06/12/2021 MICROBIOLOGY (.) 06/12/2021 Preliminary Report: Few Streptococcus intermedius Susceptibility testing results to follow. Rare Staphylococcus hominis Susceptibility testing results to follow. CBC: Recent Labs Lab Units 06/14/21203206/11/21 2134 06/10/21 2304 WBC K/cumm 21.0* < > 32.0* HEMOGLOBIN, POC -- < > -- HEMOGLOBIN g/dL 7.2* < > 10.5* HEMATOCRIT % 23.4* < > 32.8* HEMATOCRIT POC -- < > -- PLATELETS K/cumm 182 < > 186 NEUTROS PCT % -- -- 83.6 LYMPHS PCT % -- -- 2.4 MONOS PCT % -- -- 5.7 EOS PCT % -- -- 0.4 < > = values in this interval not displayed. CMP: Recent Labs Lab Units 06/14/21203206/11/21 1158 06/10/21 2304 SODIUM mmol/L 136 < > 130* POTASSIUM PLASMA mmol/L 5.2* < > 5.6* CHLORIDE mmol/L 103 < > 96* CO2 mmol/L 25 < > 26 ANIONGAP mmol/L 8 < > 8 GLUCOSE mg/dL 127 < > 92 POC GLUCOSE MONITOR -- < > -- BUN SERUM mg/dL 56* < > 42* CREATININE mg/dL 3.02* < > 2.35* CALCIUM mg/dL 8.3* < > 9.1 ALBUMIN g/dL -- -- 2.8* ALK PHOS Units/L -- -- 121 ALT Units/L -- -- 24 AST Units/L -- -- 26 BILIRUBIN TOTAL mg/dL -- -- 0.3 < > = values in this interval not displayed. ESR: CRP: Last UA: Current CrCl: Estimated Creatinine Clearance: 22.3 mL/min (A) (by C-G formula based on SCr of 3.02 mg/dL (H)). Cr. Trend: Recent Labs Lab Units 06/14/21203206/14/21 0022 06/13/21 0751 CREATININE mg/dL 3.02* 2.83* 2.45* Last HIV Labs (if any): HIV Ab Screen: No results found for: [id number] HIV Viral Load: No results found for: [id number] CD4 Count: No results found for: [id number] Radiology: Radiology results were reviewed. Last X-Ray Result: Results for orders placed during the hospital encounter of 06/10/21 XR Chest 1 View - in ICU Narrative EXAMINATION: 1 view chest radiograph Impression Comparison is made to chest radiograph dated [...] silhouette. Electronically signed by: Saniya Tapia M.D. Last CT Result: Results for orders placed during the hospital encounter of 06/10/21 CT Body Outside Reference Narrative EXAMINATION: Images For Reference Purposes Only Impression These images are for Reference purposes only and have not been reviewed by [facility] Radiology. There will be no report generated by a [facility] Radiologist. The following images were personally examined and the following details determined: Assessment/Plan * Empyema (CMS/HCC) ([facility]) Assessment & Plan The patient is a 70 y.o. male with PMH of COPD, ANDRZEJ, asthma, CKD, HTN, AICD, carotid stenosis s/p RCEA, PAD s/p angioplasty with stent placement LLE who was transferred from OSH for left empyema. Hewas diagnosed with pneumonia about 1 month ago that was treated unsuccessfully with azithro and prednisone taper. Admitted to OSH with luekocytosis of [address] chest 06/04 showed small to moderate multiloculated left pleural effusion consistent with empyema which was managed medically with antibiotics as patient declined drainage. Due to lack of improvement he later underwent thoracentesis on 06/08 with removal of thick purulent fluid and was transferred on 06/10 for surgical evaluation. Cultures from pleural fluid grew Strep intermedius. He was transferred here for surgical evaluation on 06/10. He was continued on vancomycin and cefepime. He underwent left thoracotomy with decortication on 06/12. Intraop findings included several fluid collections interiorly and posteriorly with severalabscesses in lower lobe, able to decorticate to reinflate the lower lobe although consolidated in some area, also created a pleural tent. Cultures from OR growing Strep intermedius and Staph hominis.Vancomycin was switched to linezolid on 06/14 due to high vanc troughs and continued on cefepime. CXR on 06/[address] in placed and mildly decreased left empyema with adjacent pulmonary opacities. Leukocytosis improved to 21. Recommendations: - ok to continue linezolid for now pending Staph hominis susceptibilities, please switch to PO - discontinue cefepime and start ceftriaxone 2g q24h and flagyl PO 500mg q8h - will follow susceptibilities and adjust antibiotics as needed Thank-you for the opportunity to participate in the care of this patient. Infectious Diseases will continue to follow with you. Please contact the Team 3 ID FREIGHT CLERK M-F, 8-4; or the Attending at the phonenumbers in care team with any questions or concerns. After hours, please contact the ID fellow juvenile correctional officer. documented in this encounter Nursing Notes * Kyaw Van RN - 06/14/2021 11:22 PM CDT Patient complained of shortness of breath. Patient's head of bed was elevated to 90 degrees. Respiratory was notified to give albuterol treatment per patient request. Respiratory therapy at bedside noted pulse oxygen of 80 percent on 2 L. Placed patient on 6L Nc. Dr. Lamar notified and came to bedside. See orders in eMAR. Patient stated relief of shortness of breath with 6 L NC. documented in this encounter Miscellaneous Notes * Plan of Care - Sury Peck RN - 06/23/2021 1:01 PM CDT Goals: Clinical Goals for the Shift: pain control; monitor surgical sites; monitor I & O's; london care; pulmonary hygiene; possible dc tomorrow; remain free from falls Problem: Health Behavior: Goal: Understanding of discharge needs will improve Outcome: Progressing Problem: Activity: Goal: Mobility will improve Outcome: Progressing Problem: Lack of Knowledge: Goal: Understanding of ways to prevent future skin breakdown will improve Outcome: Progressing Goal: Ability to identify appropriate dietary choices will improve Outcome: Progressing Problem: Nutritional: Goal: Dietary intake will improve Outcome: Progressing Goal: Ability to maintain a balanced intake and output will improve Outcome: Progressing Problem: Skin Integrity: Goal: Risk for impaired skin integrity will decrease Outcome: Progressing Goal: Ability to demonstrate warm and dry skin will improve Outcome: Progressing Goal: Circulation will improve to fullest extent possible Outcome: Progressing Problem: Lack of Knowledge: Goal: Ability to state ways to decrease the risk of falls will improve Outcome: Progressing Problem: Safety: Goal: Will remain free from falls Outcome: Progressing Goal: Will remain free from injury from falls Outcome: Progressing Goal: Will remain free from falls and injury in home environment Outcome: Progressing Summary: * Plan of Care - Elizabeth Mars RN - 06/23/2021 9:42 AM CDT HOME INFUSION PLAN Plan for discharge! TODAY Pt will need to have ( Ceftriaxone ) today before discharge. Meds will be delivered to home [facility] will be providing meds. [facility] will be providing F[facility]. SOC 06/24 Discharge orders received and forwarded to [facility] and [facility] . Spoke with patients sister , Michelle Schroeder , she will be the caregiver . Explained home in plan and process. Advised her a nurse would be at the home tomorrow for SOC . * Plan of Care - Emely Chase RN - 06/23/2021 12:20 AM CDT Problem: Health Behavior: Goal: Understanding of discharge needs will improve Outcome: Progressing Problem: Activity: Goal: Mobility will improve Outcome: Progressing Problem: Lack of Knowledge: Goal: Understanding of ways to prevent future skin breakdown will improve Outcome: Progressing Goal: Ability to identify appropriate dietary choices will improve Outcome: Progressing Problem: Nutritional: Goal: Dietary intake will improve Outcome: Progressing Goal: Ability to maintain a balanced intake and output will improve Outcome: Progressing Problem: Skin Integrity: Goal: Risk for impaired skin integrity will decrease Outcome: Progressing Goal: Ability to demonstrate warm and dry skin will improve Outcome: Progressing Goal: Circulation will improve to fullest extent possible Outcome: Progressing Problem: Lack of Knowledge: Goal: Ability to state ways to decrease the risk of falls will improve Outcome: Progressing Problem: Safety: Goal: Will remain free from falls Outcome: Progressing Goal: Will remain free from injury from falls Outcome: Progressing Goal: Will remain free from falls and injury in home environment Outcome: Progressing Goals: Clinical Goals for the Shift: pain control; monitor surgical sites; monitor I & O's; london care; pulmonary hygiene; possible dc tomorrow; remain free from falls Summary: Patient AOx4. VSS. Pain is controlled under current regimen. Urine output monitored per london catheter, london care. Pulmonary hygiene. Left thoracotomy site monitored, RICHARD, clean and dry. Possible dc today. Patient to remain safe and free from falls. Will continue current plan of care. * Plan of Care - Mariann Marshall RN - 06/22/2021 2:34 PM CDT This CM spoke with patient and his sister at bedside regarding patient going home with group home for HI services as well as london care and physical therapy. They are asking about getting group home on a daily basis for IV antibiotics and london care. This CM explained to patient that theymay not get a nurse to come out daily to administer the antibiotic so they are expected to learn togive the infusion. They verbalized understanding, but this CM also asked Elizabeth with HI how often the nurse will come out to do the infusion. Elizabeth confirmed with this CM that the nurse would not becoming out daily to do the infusion. This CM also spoke with SHASHANK Roca regarding patient and sister ex pectations of home care. SHASHANK Roca states she will go in and speak with patient and family about discharge plans. * Plan of Care - Jyoti Rivera RN - 06/22/2021 2:21 PM CDT Goals: Clinical Goals for the Shift: monitor pain and urinary retention, maintain stable vital signs, prepare for possible discharge London placed for urinary retention and will go home with london. Patient concerned about spot on penis and urethral discharge. MD aware. Plan for discharge to home tomorrow. Problem: Health Behavior: Goal: Understanding of discharge needs will improve Outcome: Progressing Problem: Activity: Goal: Mobility will improve Outcome: Progressing Problem: Lack of Knowledge: Goal: Understanding of ways to prevent future skin breakdown will improve Outcome: Progressing Goal: Ability to identify appropriate dietary choices will improve Outcome: Progressing Problem: Nutritional: Goal: Dietary intake will improve Outcome: Progressing Goal: Ability to maintain a balanced intake and output will improve Outcome: Progressing Problem: Skin Integrity: Goal: Risk for impaired skin integrity will decrease Outcome: Progressing Goal: Ability to demonstrate warm and dry skin will improve Outcome: Progressing Goal: Circulation will improve to fullest extent possible Outcome: Progressing Problem: Lack of Knowledge: Goal: Ability to state ways to decrease the risk of falls will improve Outcome: Progressing Problem: Safety: Goal: Will remain free from falls Outcome: Progressing Goal: Will remain free from injury from falls Outcome: Progressing Goal: Will remain free from falls and injury in home environment Outcome: Progressing * Plan of Care - Effie Ayers LCSW - 06/22/2021 11:42 AM CDT Problem: Patient remains at [facility]. Ensure acute medical needs are met and that patient has a safe discharge plan. Goal: Secure a facility that patient/family are agreeable with and ensure patient has continuum of care. Discharge plan: PT has changed pt's recommendations to home. SW did attempt to reach out to all 3 SNF options: [facility] (rang busy with multiple attempts), and [facility] , however SW was only able to leave a for the first and third option. SW did speak with pt's sister, Michelle, re: the above and d/c options. She reports that pt would not have 24hr supervision, which SW explained per PT's note, pt would not need 24hr supervision, just some occasional assistance or supervision. She reports that she would likely feel comfortable providingIV antibiotic to pt once shown how. She states that pt would need to be able to do stairs to get int o the home with 2 additional stairs to get in and out of the living room, which he would not have to do regularly as he would have access to the bathroom, bedroom and kitchen without going thru the living room. Pt has not yet done stairs with therapy, which may or may not assist pt in getting insurance approval for SNF, but would make pt/Michelle feel more comfortable. Michelle would still prefer SNF if possible, but is also open to taking pt home if able to do so safely. Michelle is currently in pt's roomand did speak with him about the above during this conversation. SW updated them that PT is going to try to do stairs with pt now to help determine d/c planning. JESSY updated CM, RN, and FREIGHT CLERK re: the above. 1:16 PM FREIGHT CLERK updated SW, RN and CM via secure that pt was cleared by PT to be safe to go home. Michelle did call SW and confirmed that they plan for pt to go home. SW directed her to speak with the CM re: any further d/c planning questions. Social work screen completed. No social work needs currently identified. CM following and to contact SW as needed. Primary contact: pt's sister, Michelle [phone] Insurance: [facility] and Medicare A Anticipated Discharge Date: tomorrow Cat KESHAV Ayers LCSW * Plan of Care - Ofelia Cody RN - 06/21/2021 11:55 PM CDT Problem: Health Behavior: Goal: Understanding of discharge needs will improve Outcome: Progressing Problem: Activity: Goal: Mobility will improve Outcome: Progressing Problem: Lack of Knowledge: Goal: Understanding of ways to prevent future skin breakdown will improve Outcome: Progressing Goal: Ability to identify appropriate dietary choices will improve Outcome: Progressing Problem: Nutritional: Goal: Dietary intake will improve Outcome: Progressing Goal: Ability to maintain a balanced intake and output will improve Outcome: Progressing Problem: Skin Integrity: Goal: Risk for impaired skin integrity will decrease Outcome: Progressing Goal: Ability to demonstrate warm and dry skin will improve Outcome: Progressing Goal: Circulation will improve to fullest extent possible Outcome: Progressing Problem: Lack of Knowledge: Goal: Ability to state ways to decrease the risk of falls will improve Outcome: Progressing Problem: Safety: Goal: Will remain free from falls Outcome: Progressing Goal: Will remain free from injury from falls Outcome: Progressing Goal: Will remain free from falls and injury in home environment Outcome: Progressing Goals: Clinical Goals for the Shift: pain management, pulmonary hygiene, sleep hygiene, VSS, monitor lobs Summary: goals reviewed with patient * Plan of Care - Emely Daiz RN - 06/21/2021 2:34 PM CDT Problem: Health Behavior: Goal: Understanding of discharge needs will improve Outcome: Progressing Problem: Activity: Goal: Mobility will improve Outcome: Progressing Problem: Lack of Knowledge: Goal: Understanding of ways to prevent future skin breakdown will improve Outcome: Progressing Goal: Ability to identify appropriate dietary choices will improve Outcome: Progressing Problem: Nutritional: Goal: Dietary intake will improve Outcome: Progressing Goal: Ability to maintain a balanced intake and output will improve Outcome: Progressing Problem: Skin Integrity: Goal: Risk for impaired skin integrity will decrease Outcome: Progressing Goal: Ability to demonstrate warm and dry skin will improve Outcome: Progressing Goal: Circulation will improve to fullest extent possible Outcome: Progressing Problem: Lack of Knowledge: Goal: Ability to state ways to decrease the risk of falls will improve Outcome: Progressing Problem: Safety: Goal: Will remain free from falls Outcome: Progressing Goal: Will remain free from injury from falls Outcome: Progressing Goal: Will remain free from falls and injury in home environment Outcome: Progressing Goals: Clinical Goals for the Shift: monitor pain and give IV antibiotics Summary: pt sat up in chair. Pt educated on plan of care, call light and fall risk. Pt states understanding and all questions answered to pt satisfaction. Call light within reach of the pt. Pt encouraged to call with reach of the pt. * Plan of Care - Ofelia Cody RN - 06/21/2021 1:15 AM CDT Problem: Health Behavior: Goal: Understanding of discharge needs will improve Outcome: Progressing Problem: Activity: Goal: Mobility will improve Outcome: Progressing Problem: Lack of Knowledge: Goal: Understanding of ways to prevent future skin breakdown will improve Outcome: Progressing Goal: Ability to identify appropriate dietary choices will improve Outcome: Progressing Problem: Nutritional: Goal: Dietary intake will improve Outcome: Progressing Goal: Ability to maintain a balanced intake and output will improve Outcome: Progressing Problem: Skin Integrity: Goal: Risk for impaired skin integrity will decrease Outcome: Progressing Goal: Ability to demonstrate warm and dry skin will improve Outcome: Progressing Goal: Circulation will improve to fullest extent possible Outcome: Progressing Problem: Lack of Knowledge: Goal: Ability to state ways to decrease the risk of falls will improve Outcome: Progressing Problem: Safety: Goal: Will remain free from falls Outcome: Progressing Goal: Will remain free from injury from falls Outcome: Progressing Goal: Will remain free from falls and injury in home environment Outcome: Progressing Goals: Clinical Goals for the Shift: pain management, pulmonary hygiene, VSS, Summary: goals reviewed with patient * Plan of Care - Siddharth Cates RN - 06/20/2021 5:02 PM CDT Problem: Health Behavior: Goal: Understanding of discharge needs will improve Outcome: Progressing Problem: Activity: Goal: Mobility will improve Outcome: Progressing Problem: Lack of Knowledge: Goal: Understanding of ways to prevent future skin breakdown will improve Outcome: Progressing Goal: Ability to identify appropriate dietary choices will improve Outcome: Progressing Problem: Nutritional: Goal: Dietary intake will improve Outcome: Progressing Goal: Ability to maintain a balanced intake and output will improve Outcome: Progressing Problem: Skin Integrity: Goal: Risk for impaired skin integrity will decrease Outcome: Progressing Goal: Ability to demonstrate warm and dry skin will improve Outcome: Progressing Goal: Circulation will improve to fullest extent possible Outcome: Progressing Problem: Lack of Knowledge: Goal: Ability to state ways to decrease the risk of falls will improve Outcome: Progressing Problem: Safety: Goal: Will remain free from falls Outcome: Progressing Goal: Will remain free from injury from falls Outcome: Progressing Goal: Will remain free from falls and injury in home environment Outcome: Progressing Goals: Clinical Goals for the Shift: pulmonary hygiene, increase mobility and continue antibiotic therapy Summary: * Plan of Care - Emely Cruz LCSW - 06/20/2021 11:38 AM CDT Weekend SW received request from floor SW to f/u with client's sister Michelle to discuss discharge planning and SNF preferences. Michelle stated that she would prefer placement at [facility] and also provided [facility] and [facility] as additional options. JESSY sent referrals via [employer] to the above facilities. SW to continue to follow to assist with discharge planning. KESHAV Britt, MONOTYPE KEYBOARD OPERATOR, DAVY Weekend Director Heart * Plan of Care - Sarina Sorto RN - 06/20/2021 12:57 AM CDT Problem: Health Behavior: Goal: Understanding of discharge needs will improve Outcome: Progressing Problem: Activity: Goal: Mobility will improve Outcome: Progressing Problem: Lack of Knowledge: Goal: Understanding of ways to prevent future skin breakdown will improve Outcome: Progressing Goal: Ability to identify appropriate dietary choices will improve Outcome: Progressing Problem: Nutritional: Goal: Dietary intake will improve Outcome: Progressing Goal: Ability to maintain a balanced intake and output will improve Outcome: Progressing Problem: Skin Integrity: Goal: Risk for impaired skin integrity will decrease Outcome: Progressing Goal: Ability to demonstrate warm and dry skin will improve Outcome: Progressing Goal: Circulation will improve to fullest extent possible Outcome: Progressing Problem: Lack of Knowledge: Goal: Ability to state ways to decrease the risk of falls will improve Outcome: Progressing Problem: Safety: Goal: Will remain free from falls Outcome: Progressing Goal: Will remain free from injury from falls Outcome: Progressing Goal: Will remain free from falls and injury in home environment Outcome: Progressing Goals: Clinical Goals for the Shift: pulmonary hygiene, increase mobility and continue antibiotic therapy Summary: * Post-Procedure Note - Isauro Landers MD - 06/19/2021 5:18 PM CDT Radiology Brief Post Procedure Note Attending: Dr. Tapia Jewelry Model Maker: Dr. Leesa Kapoor Sedation/Anesthesia: Local Pre-Op/Pre-Procedure Diagnosis: IV antibiorics, hx of left sided empyema, s/p L thoracotomy and decortication. Post-Op/Post-Procedure Diagnosis: see above Procedure Performed: Central venous access (geraldine catheter) Procedure Findings: Successful geraldine catheter placement Complications: None Estimated Blood Loss: < 30 ml Specimens: None Condition: Stable Full report to follow. * ECIN Note - Effie Ayers LCSW - 06/19/2021 4:45 PM CDT Images from the original note were not included. Patient Information: Comprehensive Nursing Documentation Attending Provider: Benny Carpenter MD Allergies: No Known Allergies Isolation: None Infection: None Code Status: FULL Advance Care Planning Activity Ht: 172.7 cm (5' 8) Wt: 94.6 kg (208 lb 8 oz) Admission Cmt: None Principal Problem: Empyema (CMS/HCC) (HCC) [J86.9] More... Elopement Risk Date/Time Elopement Risk User 06/12/21 1314 No risk EAQ 06/10/211999 No risk EAF Intake/Output 06/16/21 0700 - 06/17/21 0659 06/17/21 0700 - 06/18/21 0659 06/18/21 0700 - 06/19/21 0659 06/19/21 0700 - 06/20/21 0659 Total Total 2550-5437 7096-3241 4366-7177 Total 4439-5549 0974-3261 9879-1981 Total Intake (ml) 372.3 -- -- -- -- -- -- -- -- -- Output (ml) 1825 2165 175 300 125 600 550 -- -- 550 Net (ml) -1452.7 -2165 -175 -300 -125 -600 -550 -- -- -550 Patient Lines/Drains/Airways Status Active Airway / Central venous catheter / Drain / Epidural cathether / Intraosseous line / Peripherally inserted central catheter / Peripheral intravenous line / Arterial line Name Placement date Placement time Site Days Peripheral IV 06/19/21 22 G Right Forearm 06/19/21 0024 Forearm less than 1 Patient Lines/Drains/Airways Status Active Wound / Pressure ulcer / Moss / Negative Pressure Wound None Hernandez Fall Risk Most Recent Value Auto Low/High - if selected proceed to interventions High risk-per unit/hospital protocol ............filed at 06/17/2021 0823 History of Falling 0 ............filed at 06/19/2021 0700 Secondary Diagnosis 15 ............filed at 06/19/2021 0700 Ambulatory Aids 0 ............filed at 06/19/2021 07 Intravenous Therapy/Heparin/Saline Lock 20 ............filed at 06/19/2021 0700 Gait/Transferring 0 ............filed at 06/19/2021 0700 Mental Status 0 ............filed at 06/19/2021 0700 Hernandez Fall Risk Score 35 ............filed at 06/19/2021 07 Vital Signs Report 06/18 700 - 06/19 0659 06/19 700 - 06/19 1645 Most Recent Temp (??C) 36.5 - 36.9 36.6 - 36.9 36.9 (98.4) 06/19 1519 Pulse 85 - 97 87 - 124 87 06/19 1635 Resp 18 - 22 12 - 20 12 06/19 1635 SpO2 (%) 88 - 98 88 - 100 99 06/19 1635 BP 118/59 - 156/61 128/69 - 168/80 168/80 06/19 1635 MAP (mmHg) 73 - 98 84 - 108 104 06/19 163 Default Flowsheet Data (most recent) Endurance Tests No documentation. Default Flowsheet Data (most recent) Balance Tests - 06/19/21 0957 Tinetti Sitting Balance 1 Arises 1 Attempts to Arise 2 Immediate Standing Balance (First 5 Seconds) 1 Standing Balance 2 Nudged 1 Eyes Closed 1 Turned 360 Degrees: Steadiness 1 Turned 360 Degrees: Continuity of Steps 1 Sitting Down 1 Balance Score 12 Nursing Nutrition Feeding Level of Assistance 06/18 1900 Able to feed self 06/17 0823 Able to feed self 06/16 190 Able to feed self Nursing Mobility Activity 06/19 1000 Resting in bed 06/19 0900 Resting in bed 06/19 0800 Resting in bed 06/19 0700 Resting in bed 06/19 0600 Resting in bed 06/19 0500 Resting in bed 06/19 0400 Resting in bed 06/19 0300 Resting in bed 06/19 0200 Resting in bed 06/19 0100 Resting in bed 06/19 0000 Resting in bed 06/18 2300 Resting in bed 06/18 2200 Resting in bed 06/18 2100 Resting in bed 06/18 2000 Resting in bed 06/18 1900 Resting in bed 06/18 1818 Stand at bedside 06/18 1608 Resting in bed 06/18 1354 Dangle 06/18 1154 Resting in bed 06/18 1052 Resting in bed;Sleeping 06/18 0900 Chair 06/18 0730 Resting in bed 06/18 0600 Resting in bed 06/18 0500 Resting in bed 06/18 0400 Resting in bed 06/18 0300 Resting in bed 06/18 0200 Resting in bed 06/18 0100 Resting in bed 06/18 0000 Resting in bed 06/17 2300 Resting in bed 06/17 2200 Resting in bed 06/17 2100 Resting in bed 06/17 2000 Resting in bed 06/17 1900 Resting in bed 06/17 0823 Resting in bed 06/17 0600 Resting in bed 06/17 0500 Resting in bed 06/17 0400 Resting in bed 06/17 0300 Resting in bed 06/17 0200 Resting in bed 06/17 0100 Resting in bed 06/17 0000 Resting in bed 06/16 2300 Resting in bed 06/16 2200 Resting in bed 06/16 2100 Resting in bed 06/16 2000 Resting in bed 06/16 1900 Resting in bed 06/16 1800 Dangle 06/16 1700 Dangle Level of Assistance 06/18 1900 Minimal assist, patient does 75% or more 06/17 0823 Minimal assist, patient does 75% or more 06/16 190 Minimal assist, patient does 75% or more Repositioned 06/19 1000 Turns self 06/19 0900 Turns self 06/19 0800 Turns self 06/19 0700 Turns self 06/18 1900 Turns self 06/18 0730 Turns self 06/17 1900 Turns self 06/17 0823 Turns self 06/16 1900 Turns self Positioning Frequency 06/19 1000 Able to turn self 06/19 0900 Able to turn self 06/19 0800 Able to turn self 06/19 0700 Able to turn self 06/18 1900 Able to turn self 06/18 0730 Able to turn self 06/17 1900 Able to turn self 06/17 0823 Able to turn self 06/16 1900 Able to turn self Head of Bed Elevated 06/19 0700 Self regulated 06/18 1900 Self regulated 06/18 07 Self regulated 06/17 1900 Self regulated 06/17 0823 Self regulated 06/16 1900 Self regulated Heels/Feet 06/19 07 Foot of bed elevated 06/18 1900 Foot of bed elevated 06/17 0823 Foot of bed elevated 06/16 190 Foot of bed elevated Range of Motion 06/19 07 Active;All extremities 06/18 1900 Active;All extremities 06/17 1900 Active;All extremities 06/17 0823 Active;All extremities 06/16 1900 Active;All extremities Type of Device 06/19 0700 Mechanical compression 06/19 0600 Mechanical compression 06/19 0500 Mechanical compression 06/19 0400 Mechanical compression 06/19 0300 Mechanical compression 06/19 0200 Mechanical compression 06/19 0100 Mechanical compression 06/19 0000 Mechanical compression 06/18 2300 Mechanical compression 06/18 2200 Mechanical compression 06/18 2100 Mechanical compression 06/18 2000 Mechanical compression 06/18 1900 Mechanical compression 06/17 1900 Mechanical compression 06/17 0823 Mechanical compression 06/17 0600 Mechanical compression 06/17 0500 Mechanical compression 06/17 0400 Mechanical compression 06/17 0300 Mechanical compression 06/17 0200 Mechanical compression 06/17 0100 Mechanical compression 06/17 0000 Mechanical compression 06/16 2300 Mechanical compression 06/16 2200 Mechanical compression 06/16 2100 Mechanical compression 06/16 2000 Mechanical compression 06/16 1900 Mechanical compression 06/16 1800 Mechanical compression 06/16 1700 Mechanical compression Mechanical Compression Site 06/19 0700 Bilateral 06/19 0600 Bilateral 06/19 0500 Bilateral 06/19 0400 Bilateral 06/19 0300 Bilateral 06/19 0200 Bilateral 06/19 0100 Bilateral 06/19 0000 Bilateral 06/18 2300 Bilateral 06/18 2200 Bilateral 06/18 2100 Bilateral 06/18 2000 Bilateral 06/18 1900 Bilateral 06/17 1900 Bilateral 06/17 0823 Bilateral 06/17 0800 Bilateral 06/17 0600 Bilateral 06/17 0500 Bilateral 06/17 0400 Bilateral 06/17 0300 Bilateral 06/17 0200 Bilateral 06/17 0100 Bilateral 06/17 0000 Bilateral 06/16 2300 Bilateral 06/16 2200 Bilateral 06/16 2100 Bilateral 06/16 2000 Bilateral 06/16 1900 Bilateral 06/16 1800 Bilateral 06/16 1700 Bilateral Mechanical Compression Type 06/19 0700 IPC/SCD 06/19 0600 IPC/SCD 06/19 0500 IPC/SCD 06/19 0400 IPC/SCD 06/19 0300 IPC/SCD 06/19 0200 IPC/SCD 06/19 0100 IPC/SCD 06/19 0000 IPC/SCD 06/18 2300 IPC/SCD 06/18 2200 IPC/SCD 06/18 2100 IPC/SCD 06/18 2000 IPC/SCD 06/18 1900 IPC/SCD 06/17 1900 IPC/SCD 06/17 0823 IPC/SCD 06/17 0800 IPC/SCD 06/17 0600 IPC/SCD 06/17 0500 IPC/SCD 06/17 0400 IPC/SCD 06/17 0300 IPC/SCD 06/17 0200 IPC/SCD 06/17 0100 IPC/SCD 06/17 0000 IPC/SCD 06/16 2300 IPC/SCD 06/16 2200 IPC/SCD 06/16 2100 IPC/SCD 06/16 2000 IPC/SCD 06/16 1900 IPC/SCD 06/16 1800 IPC/SCD 06/16 1700 IPC/SCD Mechanical Compression Status 06/19 0700 On 06/19 0600 On 06/19 0500 On 06/19 0400 On 06/19 0300 On 06/19 0200 On 06/19 0100 On 06/19 0000 On 06/18 2300 On 06/18 2200 On 06/18 2100 On 06/18 2000 On 06/18 1900 On 06/17 1900 On 06/17 0823 On 06/17 0800 On 06/17 0600 On 06/17 0500 On 06/17 0400 On 06/17 0300 On 06/17 0200 On 06/17 0100 On 06/17 0000 On 06/16 2300 On 06/16 2200 On 06/16 2100 On 06/16 2000 On 06/16 1900 On 06/16 1800 On 06/16 1700 On , OT Eval and Treat Last 72 Hours OT Evaluation Row Name 06/19/21 0957 Chart Reviewed Yes -EB (r) BB (c) Session Type Evaluation -EB (r) BB (c) OT Received On 06/19/21 -EB (r) BB (c) Safe Environment Arm Band Checked;Bed Alarm placed and activated;Notified RN;Call Light within Reach Pt left sitting in chair with call light in reach. - EB (r) BB (c) Subjective Agreeable to Therapy -EB (r) BB (c) Family/Caregiver Present No -EB (r) BB (c) Occupational Therapy-Patient Goal Pt agreeable to OT POC. -EB (r) BB (c) Precautions Fall risk -EB (r) BB (c) Type of Home House -EB (r) BB (c) Home Layout One level -EB (r) BB (c) Home Access Stairs to enter without rails -EB (r) BB (c) Entrance Stairs-Rails None -EB (r) BB (c) Entrance Stairs-Number of Steps 1 -EB (r) BB (c) Bathroom Shower/Tub Tub/shower unit -EB (r) BB (c) Bathroom Toilet Raised -EB (r) BB (c) Bathroom Equipment Other (Comment) Vanity for stability during toilet transfer - EB (r) BB (c) Bathroom Accessibility Accessible via walker -EB (r) BB (c) Home Mobility Equipment Wheeled walker;Single point cane -EB (r) BB (c) Home ADL Equipment Other (Comment) None -EB (r) BB (c) Additional Comments Pt reports no use of AD in home at baseline. -EB (r) BB (c) Level of Hood Independent functional transfers -EB (r) BB (c) Lives With Other (Comment);Family Sister -EB (r) BB (c) Receives Help From Family Ft assist avaialable, Sister -EB (r) BB (c) Driving No -EB (r) BB (c) Mode of Transportation Car -EB (r) BB (c) ADL Assistance Independent -EB (r) BB (c) Instrumental ADL (IADL) Assistance Needs assistance Sister provides assistance, at baseline -EB (r)BB (c) Fall within the last 6 months No -EB (r) BB (c) Prior Function Comments Pt independent with all functional mobility with no AD, at baseline. Sisterprovides assistance with IADLs. -EB (r) BB (c) ADLS (WDL) X -EB (r) BB (c) Grooming: Where assessed Standing at sink -EB (r) BB (c) Grooming: Level of assistance Standby Assist -EB (r) BB (c) Grooming: Assistance with Safety -EB (r) BB (c) LE Dressing: Where assessed Chair -EB (r) BB (c) LE Dressing: Level of assistance Standby Assist -EB (r) BB (c) LE Dressing: Assistance with Safety -EB (r) BB (c) Toileting: Where assessed Chair -EB (r) BB (c) Toileting: Level of assistance Standby Assist -EB (r) BB (c) Toileting: Assistance with Other (Comment) safety -EB (r) BB (c) Toilet Transfer From Bed -EB (r) BB (c) Toilet Transfer Type To and from -EB (r) BB (c) Toilet Transfer to Standard bedside commode Chair-simulated -EB (r) BB (c) Toilet Transfer Technique Ambulating -EB (r) BB (c) Toilet Transfer: Equipment Wheeled walker -EB (r) BB (c) Toilet Transfers Supervision -EB (r) BB (c) Toilet Transfers Comments Pt reported difficulty transfering to standard toilet in bathroom. Pt reports no challenges using raised toilet at home. -EB (r) BB (c) Pain Assessment 0-10 -DM (r) EB (t) Pain Score 6 -EB (r) BB (c) Pain Location Incision -EB (r) BB (c) Pain Interventions Other (Comment) Pt reports MARY Ferrer just gave him medication -EB (r) BB (c) Arousal/Alertness Alert;Appropriate responses to stimuli -EB (r) BB (c) Attention Span Appears intact -EB (r) BB (c) Current communication Appears Intact -EB (r) BB (c) Orientation Oriented X4 (person, place, time, situation) -EB (r) BB (c) Following Commands Follows all commands and directions without difficulty -EB (r) BB (c) Safety Judgment Good awareness of safety precautions -EB (r) BB (c) Awareness of Errors Good awareness of errors made -EB (r) BB (c) Insight Fully aware of deficits -EB (r) BB (c) Problem Solving Able to problem solve independently -EB (r) BB (c) Compliance/Behavior Easy to engage -EB (r) BB (c) Perseveration Not present -EB (r) BB (c) Balance Yes -EB (r) BB (c) Static Sitting-Balance Support No upper extremity supported -EB (r) BB (c) Static Sitting-Sitting Surface Bed -EB (r) BB (c) Static Sitting-Level of Assistance Distant supervision -EB (r) BB (c) Static Sitting-Comment/# of Minutes Safety -EB (r) BB (c) Dynamic Sitting-Balance Support No upper extremity supported -EB (r) BB (c) Dynamic Sitting-Balance Lateral lean;Forward lean;Reaching for objects;Reaching across midline -EB (r) BB (c) Dynamic Sitting-Sitting Surface Bed;Chair -EB (r) BB (c) Dynamic Sitting-Level of Assistance Distant supervision -EB (r) BB (c) Dynamic Sitting-Comments Safety; observed while setting up tray table. -EB (r) BB (c) Static Standing-Balance Support Bilateral upper extremity supported -EB (r) BB (c) Static Standing-Standing Surface Floor -EB (r) BB (c) Static Standing-Level of Assistance Close supervision -EB (r) BB (c) Static Standing-Comment/# of Minutes Safety -EB (r) BB (c) Dynamic Standing-Balance Support No upper extremity supported -EB (r) BB (c) Dynamic Standing-Balance Lateral lean;Forward lean;Reaching for objects;Reaching across midline -EB(r) BB (c) Dynamic Standing-Standing Surface Floor -EB (r) BB (c) Dynamic Standing-Level of Assistance Close supervision -EB (r) BB (c) Dynamic Standing-Comments Safety -EB (r) BB (c) Bed Mobility No Pt found sitting EOB at start of session. -EB (r) BB (c) Bed Mobility From 1 -- -EB (r) BB (c) Transfer Yes Pt declined use of gait belt for OOB mobility. -EB (r) BB (c) Transfer From 1 Sit;Bed;Chair with arms -EB (r) BB (c) Transfer Type 1 To and from -EB (r) BB (c) Transfer to 1 Stand -EB (r) BB (c) Technique 1 Sit to stand;Stand to sit -EB (r) BB (c) Transfer Device 1 Wheeled walker -EB (r) BB (c) Transfer Level of Assistance 1 Standby Assist -EB (r) BB (c) Trials/Comments 1 Safety -EB (r) BB (c) Trials/Comments 2 Functional room mobility completed with WW and SBA for safety and line managment.Pt ambulated ~50 feet. -EB (r) BB (c) RUE Assessment WFL -EB (r) BB (c) LUE Assessment WFL -EB (r) BB (c) Comments OTS recommend DC home with 24 hour supervision or SNF if 24-hour supervision is not available. Pt feels home would be a safe option for him at DC, however, he would like to check with his sister first (he is living in her home). OT to follow up after he speaks with her this weekend. -EB (r) BB (c) Putting on and taking off regular lower body clothing 3 -EB (r) BB (c) Bathing 3 -EB (r) BB (c) Toileting 3 -EB (r) BB (c) Putting on and taking off upper body clothing 3 -EB (r) BB (c) Personal Grooming 3 -EB (r) BB (c) Eating Meals 4 -EB (r) BB (c) Total Score (range 6-24) 19 -EB Score Interpretation 40.22 -EB (r) BB (c) Problem List Decreased ADL independence;Decreased IADL independence;Decreased endurance;Decreased balance;Decreased functional mobility;Decreased trunk control for functional activities -EB (r) BB (c) Barriers to Discharge Current Mobility Status;Decreased caregiver support -EB (r) BB (c) Plan Plan of care initiated;If this is the last note, consider this the discharge summary -EB (r) BB (c) OT Recommendation [facility] Facility -EB (r) BB (c) OT Recommendation/Plan Comments If pt refuses SNF placement, recommend home with 24 hour supervision and home health OT. -EB (r) BB (c) OT Frequency 2-3x/wk -EB (r) BB (c) Treatment/Interventions ADL/IADL retraining;Balance Training;Bed mobility;Endurance training;Functional mobility training;Functional transfer training;Therapeutic activity;Therapeutic exercise;Transfer training -EB (r) BB (c) OT Equipment Recommended Wheeled walker;Transfer tub bench -EB (r) BB (c) OT - Next Appointment 06/22/21 -EB (r) BB (c) OT - OK to Discharge No -EB (r) BB (c) OT Evaluation Complete Yes -EB (r) BB (c) User Emery (r) = Recorded By, (t) = Taken By, (c) = Cosigned By Initials Name Effective Dates Nabil Sibley RN 12/19/20 - Sharon Armijo 05/20/21 - Racquel Fleming, JULIANA 06/14/19 - OT Treatment No documentation. OT Notes Notes from 06/17/21 through 06/19/21 No notes of this type exist for this encounter. , PT Eval and Treat Last 72 Hours PT Evaluation Row Name 06/14/21 1023 Chart Reviewed Yes -CC Session Type Evaluation -CC Safe Environment Arm Band Checked;Call Light within Reach;Notified RN;Patient found sitting in Chair;Overbed Table within Reach Pt. left seated in recliner with call light in reach -CC Subjective Agreeable to Therapy -CC Family/Caregiver Present Yes Sister present - Precautions Fall risk - Type of Home House - Home Layout One level - Home Access Stairs to enter without rails - Entrance Stairs-Number of Steps 1 -CC Home Mobility Equipment Wheeled walker;Single point cane;Wheelchair-manual -CC Additional Comments Pt. reports no use of AD at baseline. -CC Level of Hood Independent functional transfers;Independent with ambulation - Lives With Family Pt. reports living with sister - Receives Help From Family FT assistance available from sister - Fall within the last 6 months No -CC Prior Function Comments Pt. reports that he was independent with all functional mobility prior to admission. -CC Activity Tolerance Comments Margot: hard -CC Arousal/Alertness Alert;Appropriate responses to stimuli - Orientation Oriented X4 (person, place, time, situation) - Following Commands Follows all commands and directions without difficulty -CC Compliance/Behavior Easy to engage -CC Light Touch WFL Bilateral LEs intact to light touch -CC Sensation Comments Pitting edema noted in bilateral feet and hands. -CC Balance Yes -CC Static Sitting-Balance Support Feet supported -CC Static Sitting-Sitting Surface Chair -CC Static Sitting-Level of Assistance Close supervision -CC Static Sitting-Comment/# of Minutes supervision for safety -CC Static Standing-Balance Support Bilateral upper extremity supported on w/w -CC Static Standing-Standing Surface Floor -CC Static Standing-Level of Assistance Contact guard -CC Static Standing-Comment/# of Minutes CGA for balance and safety -CC Bed Mobility No -CC Transfer Yes -CC Transfer From 1 Sit -CC Transfer Type 1 To -CC Transfer to 1 Stand -CC Technique 1 Sit to stand -CC Transfer Device 1 Wheeled walker -CC Transfer Level of Assistance 1 Moderate Assist x2 -CC Trials/Comments 1 Assist for force production, balance, and safety. Verbal cues for hand placement and sequencing of task. -CC Transfer From 2 Stand -CC Transfer Type 2 To -CC Transfer to 2 Sit -CC Technique 2 Stand to sit -CC Transfer Device 2 Wheeled walker -CC Transfer Level of Assistance 2 Contact Guard Assist -CC Trials/Comments 2 CGA for balance and safety. Pt. required increased time to control descent to chair. Verbal cues for hand placement and sequencing of task. -CC Ambulation Yes -CC Distance (ft) 1 10 (5' forwards + 5' backwards) -CC Surface 1 Level tile -CC Device 1 Wheeled walker -CC Assistance 1 Contact Guard Assist -CC Gait: Requires assist with 1 Maintaining balance -CC Gait: Requires verbal cues to 1 Use assistive device safely;Utilize appropriate gait sequencing;Improve upright posture;Pace activity -CC Quality of Gait 1 decreased carmella, decreased step length, decreased GRAZYNA, decreased step clearance, forward flexed posture -CC Ambulation Comments 1 Multiple short standing rest breaks 2/2 increased pain with movement. -CC Stairs No -CC RLE Assessment WFL -CC LLE Assessment WFL -CC Equipment Use Comments No gait belt used 2/2 chest tubes -CC Other PT Comments Pt. limited this date by increased/uncontrolled pain. Pt. required frequent standing rest breaks to recover. Anticipate pt. to progress with mobility once pain better controlled. -CC How much difficulty does the patient have: Turning over in bed 2 -CC How much difficulty does the patient currently have: Sitting down and standing up from a chair witharms? 2 -CC How much difficulty does the patient have: Moving from lying on back to sitting on the side of the bed? 2 -CC How much difficulty does the patient have: Moving to and from a bed to a chair including wheelchair? 3 -CC How much help does the patient currently need: Walk in hospital room? 3 -CC How much help from another person does the patient currently need: Climbing 3-5 steps with a railing? 2 -CC Total 6 Click Score (range 6-24) 14 -CC Score Interpretation 35.55 -CC Prognosis Good -CC Problem List Gait deviations;Decreased strength;Decreased endurance;Impaired balance;Decreased mobility;Pain;Edema - Problem List Comments Pt's L sided infection empyema/sepsis, pleural effusion results in above listed activity deficits and impairments which prevent full participation in home and community mobility- Plan Plan of care initiated;If this is the last note, consider this the discharge summary - PT Recommendation/Plan Inpatient Rehab Facility - PT Recommendation/Plan Comments pending progress - PT Frequency 5-7x/wk - Treatment/Interventions Balance Training;Bed mobility;Endurance training;Functional activity;Functional transfer training;Gait training;Neuromuscular re-education;Strengthening;Therapeutic activity;Th erapeutic exercise;Transfer training - PT Evaluation Complete Yes - User Emery (r) = Recorded By, (t) = Taken By, (c) = Cosigned By Initials Name Effective Dates Sana Hua, PT 07/23/19 - PT TREATMENT (last 168 hours) PT Treatment Row Name 06/18/21 1358 06/17/21 1318 06/15/21 0919 PT Last Visit Session Type Treatment -CS (r) CC (c) Treatment -ARMINDA Treatment -CS (r) CC (c) Safe Environment Arm Band Checked;Call Light within Reach;Notified RN;Overbed Table within Reach Ptleft at edge of bed with call light and table in reach -CS (r) CC (c) Arm Band Checked;Call Light within Reach;Notified RN;Patient found sitting in Chair;Overbed Table within Reach In chair with all needs met after session - Arm Band Checked;Call Light within Reach;Notified RN;Patient found in Supine;Overbed Table within Reach Left in chair reclined with call within reach, nurse notifie -CS (r)CC (c) Subjective Agreeable to Therapy -CS (r) CC (c) Agreeable to Therapy -ARMINDA Agreeable to Therapy -CS (r) CC (c) Subjective Comment -- Pt sitting in the chair upon therapist arrival in [facility]. Pt agreeable to treatment session. -ARMINDA -- Family/Caregiver Present Yes Sister -CS (r) CC (c) No -ARMINDA No -CS (r) CC (c) Precautions Precautions Fall risk -CS (r) CC (c) Fall risk;ANDRZEJ -ARMINDA Fall risk -CS (r) CC (c) Activity Tolerance Activity Tolerance Comments Margot: medium -CS (r) CC (c) Margot: Hard -ARMINDA Margot: Hard -CS (r) CC (c) Pain Assessment Pain Assessment 0-10 -CS (r) CC (c) -- 0-10 -CS (r) CC (c) Pain Score 4 -CS (r) CC (c) -- 3 -CS (r) CC (c) Pain Type Surgical pain -CS (r) CC (c) -- -- Pain Location Incision -CS (r) CC (c) -- -- Cognition Arousal/Alertness Alert;Appropriate responses to stimuli -CS (r) CC (c) -- Alert;Appropriate responses to stimuli -CS (r) CC (c) Orientation Oriented X4 (person, place, time, situation) -CS (r) CC (c) -- Oriented X4 (person, place, time, situation) -CS (r) CC (c) Following Commands Follows all commands and directions without difficulty -CS (r) CC (c) -- Followsall commands and directions without difficulty -CS (r) CC (c) Compliance/Behavior Easy to engage -CS (r) CC (c) -- Easy to engage -CS (r) CC (c) Balance Balance Yes -CS (r) CC (c) Yes -ARMINDA Yes -CS (r) CC (c) Static Sitting Balance Static Sitting-Balance Support No upper extremity supported;Feet supported -CS (r) CC (c) -- Bilateral upper extremity supported;Feet supported -CS (r) CC (c) Static Sitting-Sitting Surface Bed -CS (r) CC (c) -- Bed -CS (r) CC (c) Static Sitting-Level of Assistance Distant supervision -CS (r) CC (c) -- Close supervision -CS (r) CC (c) Static Sitting-Comment/# of Minutes Supervision for safety -CS (r) CC (c) -- Supervision for safety-CS (r) CC (c) Static Standing Balance Static Standing-Balance Support Bilateral upper extremity supported WW -CS (r) CC (c) Bilateral upper extremity supported -ARMINDA Bilateral upper extremity supported on WW -CS (r) CC (c) Static Standing-Standing Surface Floor -CS (r) CC (c) Floor -ARMINDA Floor -CS (r) CC (c) Static Standing-Level of Assistance Close supervision -CS (r) CC (c) Close supervision -ARMINDA Contact guard -CS (r) CC (c) Static Standing-Comment/# of Minutes supervision for safety -CS (r) CC (c) For safety -ARMINDA CGA for balance, safety and line management -CS (r) CC (c) Exercises Ankle Pumps -- -- x40 In chair to increase BP and reduce swelling -CS (r) CC (c) Equipment Use Equipment Use Comments No gait belt used -CS (r) CC (c) -- No gait belt used -CS (r) CC (c) Bed Mobility Bed Mobility No -CS (r) CC (c) No -ARMINDA Yes -CS (r) CC (c) Bed Mobility 1 Bed Mobility From 1 -- -- Supine -CS (r) CC (c) Bed Mobility Type 1 -- -- To -CS (r) CC (c) Bed Mobility to 1 -- -- Edge of bed -CS (r) CC (c) Level of Assistance 1 -- -- Minimum Assist -CS (r) CC (c) Bed Mobility Comments 1 -- -- Min A to assist LE transition, trunk elevation, positioning of hips at edge of bed -CS (r) CC (c) Transfers Transfer Yes -CS (r) CC (c) Yes Gait belt not used due to lines/tubes -ARMINDA Yes - CS (r) CC (c) Transfer 1 Transfer From 1 Sit -CS (r) CC (c) Sit -ARMINDA Sit -CS (r) CC (c) Transfer Type 1 To and from -CS (r) CC (c) To and from -ARMINDA To and from -CS (r) CC (c) Transfer to 1 Stand -CS (r) CC (c) Stand -ARMINDA Stand -CS (r) CC (c) Technique 1 Sit to stand;Stand to sit -CS (r) CC (c) Sit to stand;Stand to sit - ARMINDA Sit to stand;Stand to sit -CS (r) CC (c) Transfer Device 1 No device -CS (r) CC (c) No device -ARMINDA Wheeled walker -CS (r) CC (c) Transfer Level of Assistance 1 Standby Assist -CS (r) CC (c) Contact Guard Assist -ARMINDA Contact GuardAssist -CS (r) CC (c) Trials/Comments 1 Supervision for safety; verbal cues for sequence; performed at EOB -CS (r) CC (c)For safety and to ensure balance -ARMINDA Assist for force production, balance and safety. Verbal cues for sequencing transfer -CS (r) CC (c) Transfers 2 Transfer From 2 Toilet -CS (r) CC (c) Chair with arms -ARMINDA -- Transfer Type 2 To and from -CS (r) CC (c) To and from -ARMINDA -- Transfer to 2 Stand -CS (r) CC (c) Bed -ARMINDA -- Technique 2 Sit to stand;Stand to sit -CS (r) CC (c) -- Stand and step -ARMINDA -- Transfer Device 2 No device -CS (r) CC (c) Hand held assist -ARMINDA -- Transfer Level of Assistance 2 Moderate Assist -CS (r) CC (c) Minimum Assist -ARMINDA -- Trials/Comments 2 Mod A to assist force production and balance -CS (r) CC (c) For safety and balance -ARMINDA -- Ambulation Functional Ambulation Category -- 2 -ARMINDA -- Ambulation Yes -CS (r) CC (c) Yes -ARMINDA Yes -CS (r) CC (c) Ambulation 1 Distance (ft) 1 40 -CS (r) CC (c) 40 -ARMINDA 20 -CS (r) CC (c) Surface 1 Level tile -CS (r) CC (c) Level tile -ARMINDA Level tile -CS (r) CC (c) Device 1 Wheeled walker -CS (r) CC (c) Other (comments) Pushing w/c -ARMINDA Wheeled walker -CS (r) CC (c) Assistance 1 Contact Guard Assist -CS (r) CC (c) Contact Guard Assist -ARMINDA Contact Guard Assist -CS (r) CC (c) Gait: Requires assist with 1 Maintaining balance -CS (r) CC (c) Maintaining balance -ARMINDA Maintainingbalance -CS (r) CC (c) Gait: Requires verbal cues to 1 Use assistive device safely;Prevent bumping into environmental barriers (corea/furniture);Utilize appropriate gait sequencing;Improve upright posture;Pace activity;Utilize pursed lip breathing - CS (r) CC (c) Use assistive device safely;Utilize appropriate gait sequenc ing;Improve upright posture;Increase step length;Pace activity;Utilize pursed lip breathing - Useassistive device safely;Prevent bumping into environmental barriers (corea/furniture);Improve upright posture;Utilize pursed lip breathing;Pace activity -CS (r) CC (c) Quality of Gait 1 Decreased carmella; decreased step length -CS (r) CC (c) Decreased carmella, decreased step length, decreased step height -ARMINDA Decreased carmella, decreased step length -CS (r) CC (c) Ambulation Comments 1 Several standing rest breaks 2/2 fatigue -CS (r) CC (c) -- Several short standing breaks 2/2 decreased activity tolerance -CS (r) CC (c) Stairs Stairs No -CS (r) CC (c) -- No -CS (r) CC (c) Other Comments Other PT Comments -- The patient is motivated to participate in skilled PT and demonstrates progress towards short term goals. Patient would benefit from continuing skilled PT to promote highest level of function with all mobility. - ARMINDA Pt. limited this date by increased dizziness symptoms. Pt vitals were checked while pt. was in supine prior to all transfers with readings of 92% O2 sat., HR 83, BP 131/54 (73) and pain rating of 3/10. Treatment session began with supine>edge of bed transfer with min A and verbal cueing from therapist, requiring several seated rest breaks for recovery and pain control. Sit>stand transfer requiring contact guard assist for safety and management of lines,pt reported it felt good to stand up and required standing rest break 2/2 increased dizziness similar to vertigo symptoms at baseline. Ambulation of 20 feet requiring several standing rest breaks 2/2increased dizziness and decreased activity tolerance. Pt. assisted to bedside chair where vitals were recorded. BP 96/51 (61), HR 88, and O2 sat 93%. Marked edema present in distal BUE and distal BLE. Nurse and FREIGHT CLERK notified following vitals check. Therapist and nurse reclined chair, elevated legs and ankle pump exercises were performed and rechecked vitals. Final vitals recorded BP 113/52 (66), HR80, O2 sat 94%. Pt left in chair reclined with call light within reach. -CS (r) CC (c) Basic Mobility - 6 Click How much difficulty does the patient have: Turning over in bed 4 -CS (r) CC (c) 3 -ARMINDA 3 -CS (r) CC (c) How much difficulty does the patient currently have: Sitting down and standing up from a chair witharms? 3 -CS (r) CC (c) 3 -ARMINDA 3 -CS (r) CC (c) How much difficulty does the patient have: Moving from lying on back to sitting on the side of the bed? 3 -CS (r) CC (c) 3 -ARMINDA 3 -CS (r) CC (c) How much difficulty does the patient have: Moving to and from a bed to a chair including wheelchair? 3 -CS (r) CC (c) 3 -ARMINDA 3 -CS (r) CC (c) How much help does the patient currently need: Walk in hospital room? 3 -CS (r) CC (c) 3 -ARMINDA 3 -CS (r) CC (c) How much help from another person does the patient currently need: Climbing 3-5 steps with a railing? 3 -CS (r) CC (c) 3 -ARMINDA 2 -CS (r) CC (c) Total 6 Click Score (range 6-24) 19 -CS 18 -ARMINDA 17 -CS Score Interpretation 42.48 -CS (r) CC (c) 41.05 -ARMINDA 39.67 -CS (r) CC (c) Assessment Prognosis Good -CS (r) CC (c) Good -ARMINDA Good -CS (r) CC (c) Problem List Gait deviations;Decreased endurance;Impaired balance;Decreased mobility;Pain -CS (r) CC (c) Gait deviations;Decreased strength;Decreased endurance;Impaired balance;Decreased mobility -KCGait deviations;Decreased endurance;Impaired balance;Pain;Edema -CS (r) CC (c) Plan Plan Continue with current plan;If this is the last note, consider this the discharge summary -CS (r) CC (c) Continue with current plan;If this is the last note, consider this the discharge summary -ARMINDA Continue with current plan;If this is the last note, consider this the discharge summary -CS (r) CC (c) Recommendation/Plan PT Recommendation/Plan Inpatient Rehab Facility -CS (r) CC (c) Inpatient Rehab Facility -ARMINDA Inpatient Rehab Facility -CS (r) CC (c) PT Frequency 5-7x/wk -CS (r) CC (c) 5-7x/wk -ARMINDA 5-7x/wk -CS (r) CC (c) Treatment/Interventions Balance Training;Endurance training;Gait training;Stair training;Therapeutic activity -CS (r) CC (c) Balance Training;Bed mobility;Endurance training;Functional activity;Functional transfer training;Gait training;Neuromuscular re-education;Strengthening;Therapeutic activity;Therapeutic exercise;Transfer training -ARMINDA Balance Training;Bed mobility;Endurance training;Gait training;Stair training;Therapeutic activity - CS (r) CC (c) Progress Progressing toward goals -CS (r) CC (c) Progressing toward goals -ARMINDA Progressing toward goals -CS (r) CC (c) User Emery (r) = Recorded By, (t) = Taken By, (c) = Cosigned By Initials Name Effective Dates CS Kobe Haines 06/03/21 - Mayelin Odom, PT 05/14/19 - Sana Milian, SY 07/23/19 - PT Notes 06/17/2021 3:13 PM Progress Notes signed by Mayelin To, PT , Wound Info Only Patient Lines/Drains/Airways Status Active Wound / Pressure ulcer / Moss / Negative Pressure Wound None , Vitals Info Only Vital Signs Report 06/18 07 - 06/19 0659 06/19 07 - 06/19 1645 Most Recent Temp (??C) 36.5 - 36.9 36.6 - 36.9 36.9 (98.4) 06/19 1519 Pulse 85 - 97 87 - 124 87 06/19 1635 Resp 18 - 22 12 - 20 12 06/19 1635 SpO2 (%) 88 - 98 88 - 100 99 06/19 1635 BP 118/59 - 156/61 128/69 - 168/80 168/80 06/19 1635 MAP (mmHg) 73 - 98 84 - 108 104 06/19 1635 , Oxygen Info Only Default Flowsheet Data (most recent) Endurance Tests No documentation. Default Flowsheet Data (last 48 hours) Oxygen Row Name 06/19/21 1635 06/19/21 1519 06/19/21 1130 06/19/21 1105 06/19/21 0957 Oxygen Therapy/Pulse Ox O2 Therapy Supplemental oxygen None (Room air) Per patient request. None (Room air) Supplemental oxygen None (Room air) OTS provided supplemental oxygen after this reading. O2 Del Method Nasal cannula -- -- Nasal cannula -- O2 Flow Rate (L/min) 2 L/min -- -- 2 L/min -- SpO2 99 % 92 % 98 % 95 % 88 % Pt donned nasal cannula with 2L oxygen and O2 basilia to 93% Patient Activity At rest At rest -- Other (Comment) after OT session At rest Row Name 06/19/21 0945 06/19/21 0900 06/19/21 0357 06/18/21 2350 06/18/212013 Oxygen Therapy/Pulse Ox O2 Therapy -- None (Room air) Supplemental oxygen Supplemental oxygen None (Room air) O2 Del Method -- -- Nasal cannula Nasal cannula -- O2 Flow Rate (L/min) -- -- 2 L/min 2 L/min -- SpO2 100 % 89 % 96 % 97 % 96 % Patient Activity -- -- -- -- At rest Row Name 06/18/21 1605 06/18/21 1511 06/18/21 1429 06/18/21 1358 06/18/21 1117 Oxygen Therapy/Pulse Ox O2 Therapy None (Room air) None (Room air) Supplemental oxygen None (Room air) None (Room air) O2 Del Method -- -- Nasal cannula -- -- O2 Flow Rate (L/min) -- -- 2 L/min -- -- SpO2 97 % 88 % RN notified 92 % 88 % Nurse notified; 2L O2 91 % Patient Activity -- At rest -- -- At rest Row Name 06/18/21 0910 06/18/21 0754 06/18/21 0300 06/18/21 0026 06/17/212009 Oxygen Therapy/Pulse Ox O2 Therapy None (Room air) Supplemental oxygen Supplemental oxygen Supplemental oxygen Supplementaloxygen O2 Del Method -- Nasal cannula -- -- -- O2 Flow Rate (L/min) -- 2 L/min -- -- -- SpO2 98 % 92 % 97 % 98 % 96 % Patient Activity At rest At rest -- -- -- Row Name 06/17/211999 Oxygen Therapy/Pulse Ox O2 Therapy Supplemental oxygen O2 Del Method Nasal cannula O2 Flow Rate (L/min) 2 L/min , NPPV Settings last 72 hours NPPV Last 72 hr Documentation (last 72 hours) Adult NPPV/NIV No documentation. * Plan of Care - Effie Ayers LCSW - 06/19/2021 4:36 PM CDT Problem: Patient remains at [facility]. Ensure acute medical needs are met and that patient has a safe discharge plan. Goal: Secure a facility that patient/family are agreeable with and ensure patient has continuum of care. Discharge plan: Per DCAM, pt will need 2wks of IV antibiotics and placement. When SW attempted to speak with pt, he was off the floor. SW also attempted to speak with pt's sister, Michelle [phone], however SW had to leave a vm. SW will ask wkend SW to attempt to speak with pt/sister re: d/c plan. SW updated FREIGHT CLERK. Pt does have private insurance, so auth would also need to be obtained after pt has been accepted to a facility. Primary contact: pt's sister, Michelle [phone] Insurance: [facility] and Medicare A Anticipated Discharge Date: Tuesday SW to follow. Cat KESHAV Ayers LCSW * Plan of Care - Carmen Sánchez NP - 06/19/2021 2:54 PM CDT Images from the original note were not included. Sign Off Recommendations Diagnosis: L empyema Retained Hardware: Yes Location: pacer Site of Infection: Organism: S intermedius, S hominis Antibiotics Start Date: 06/12 PMD: Infectious Disease Team: General 3 Infectious Disease Attending: Jesse Medication Recommendations: Dru. Ceftriaxone 2g IV q24h 2. Metronidazole 500mg PO q8h 3. Doxycyline 100mg PO q12h Duration likely 4 weeks, but will need repeat imaging and ID f/u prior to stopping Firm Stop: No - Do not stop before the patient is seen by ID Labs/Frequency to be Monitored: CBC once a week and CMP once a week Imaging Required Before Follow Up: No Other Recommendations: CT chest without contrast (crcl 22) Summary of Consultation: 70 year old male with PMH including: COPD, ANDRZEJ, asthma, CKD, HTN, AICD, carotid stenosis s/p R CEA,PAD s/p angioplasty with stent placement LLE who was transferred from OSH for left empyema. He was diagnosed with pneumonia about 1 month ago that was treated unsuccessfully with azithro and prednisone taper. Admitted to OSH with luekocytosis of [address] chest 06/04 showed small to moderate multiloculated left pleural effusion consistent with empyema which was managed medically with antibiotics as patient declined drainage. Due to lack of improvement he later underwent thoracentesis on 06/08 with removal of thick purulent fluid and was transferred on 06/10 for surgical evaluation. Cultures fr om pleural fluid grew Strep intermedius. He was transferred here for surgical evaluation on 06/10. He was continued on vancomycin and cefepime. He underwent left thoracotomy with decortication on 06/12. Intraop findings included several fluid collections interiorly and posteriorly with several abscesses in lower lobe, able to decorticate to reinflate the lower lobe although consolidated in some area, also created a pleural tent. Cultures from OR growing Strep intermedius and Staph hominis. Vancomycin was switched to linezolid on 06/14 due to high vanc troughs and continued on cefepime. CXR on06/[address] in placed and [...] S intermedius, S hominis - pleural tissue: NG Doxycycline causes photosensitivity and patients should be advised to monitor sun exposure, including increased use of skin-protective clothing and sunscreen, and avoidance of tanning. Doxycycline may result in GI upset. In order to minimize the risk of esophageal ulceration, patients should be advised to take the medication with 8 ounces of water and remain sitting for 30 minutes after taking the pill. Rarely, doxycycline can be associated with pancreatitis, pseudotumor cerebri, elevated LFTs,esophageal ulceration, black tongue syndrome (reversible fungus infection that goes away with drug discontinuation). Divalent cations should be administered 4 hours before or after doxycycline if they are necessary. Metronidazole is associated with GI intolerance, metallic taste, headaches, dark urine. Rarely, it can be associated with seizures, encephalopathy, aseptic meningitis, Samuels-Dejuan syndrome, peripheral neuropathy, insomnia, and a disulfiram-like reaction with alcohol. Patients are advised to avoid alcohol while taking the medication. ?? Cefepime may be associated with allergic reactions, diarrhea, but is overall well tolerated. Rarely, may be associated with convulsions, encephalopathy, myoclonus, confusion, hallucinations, neutropenia, thrombocytopenia, hepatitis, hemolytic anemia, agranulocytosis. Therefore, CBC and CMP should be checked weekly while on this medication. Follow Up Plan: fax results to [phone], follow up with Dr. Molina/justyna in 2 weeks , After discharge additional questions can be directed to the clinic at [phone] and Patient has been educated about the risks and benefits of IV antibiotics (OPAT) Leaving the Hospital on IV Antibiotics Infectious Diseases Information for Patients and Families: Because of your infection, you must be treated with antibiotics by vein (IV). Timing is important! You should receive antibiotics on a regular schedule and not skip doses. This will give your body enough antibiotic to fight your infection. Finishing is important! You must finish all antibiotics unless told otherwise by your doctor. Taking all of your antibiotics will help get rid of your infection and prevent resistance to antibiotics. What to expect Labs: A nurse will draw your blood about 1-2 times each week. Labs help us monitor your infection and watch out for antibiotic side effects. Telephone calls: You will be receiving lots of phone calls! People who will need to contact you include the infectious disease clinic, home health nurses, home infusion team (antibiotic providers), pharmacists, and doctors. ??? Please make sure we have a working phone number for you so you can receive these calls that areimportant for your health ??? Please make sure your voicemail is set up AND has space for us to leave a message (just in casewe miss you!) Catheter and Wound care ??? Always wash hands with antibacterial soap and use alcohol-based hand external grinder tender before touching your catheter or changing wound dressings. ??? When drying hands, only use a clean paper towel. ??? Don't forget to scrub the ???hub?? (tip of your catheter)! Do this with an alcohol wipe beforeeach use. Scrub for 30 seconds (minimum) and allow to dry without blowing on it or waving your handacross it. ??? Refer to your home care service's instructions for taking care of your IV line and hooking up your antibiotics. Follow-up Appointment Keeping your follow-up appointment is very important! Below are things that may happen or be decided at your infectious diseases clinic appointment. ??? Look at the infection site and IV to look for problems ??? Determine how long you need to be on IV antibiotics ??? Prescribe oral (pill) antibiotics after finishing IV antibiotics if needed ??? Depending on how you are doing, we may order additional blood work or imaging tests to evaluateyour infection ??? Arrange for your IV line to be removed when the IV antibiotics are completed Questions or Concerns?? Below are reasons to call the Infectious Diseases Clinic RIGHT AWAY! 1. Watery diarrhea more than 3 times in 24 hours. 2. Nausea, vomiting, and/or belly pain 3. Rash and/or itching 4. Chills 5. Drenching night sweats 6. Fever >100.3 7. Increasing redness and/or drainage from a wound 8. Confusion or personality changes 9. Antibiotic catheter problems. Based on your symptoms, we may be able to help you over the phone or have your home health nurse help you. In some cases, you may need to go to the Emergency Room. Contact Information Infectious Diseases Clinic : [facility] [facility] [address] [place] [address] or [phone] Toll-free Important Information for Healthcare Providers: Antibiotics recommended : ceftriaxone, metronidazole, doxycyline Anticipated stop date for IV antibiotics: to be determined by infectious disease doctor Infectious disease physician saw the patient during hospital admission: Dr. Molina Recommended Laboratory Monitoring: [ x ] CBC w/differential and CMP weekly ALL RESULTS SHOULD BE FAXED TO INFECTIOUS DISEASE CLINIC AT: [phone] Cosigned by Malini Fernandez MD at 06/19/2021 4:08 PM CDT * Pre-Procedure Note - Isauro Landers MD - 06/19/2021 12:36 PM CDT Radiology Procedure Plan Indication: IV antibiotics, bacteremia Planned Procedure: Image guided central venous catheter Geraldine placement. * Plan of Care - Nabil Gonzalez RN - 06/19/2021 10:20 AM CDT Problem: Health Behavior: Goal: Understanding of discharge needs will improve Outcome: Progressing Problem: Activity: Goal: Mobility will improve Outcome: Progressing Problem: Lack of Knowledge: Goal: Understanding of ways to prevent future skin breakdown will improve Outcome: Progressing Goal: Ability to identify appropriate dietary choices will improve Outcome: Progressing Problem: Nutritional: Goal: Dietary intake will improve Outcome: Progressing Goal: Ability to maintain a balanced intake and output will improve Outcome: Progressing Problem: Skin Integrity: Goal: Risk for impaired skin integrity will decrease Outcome: Progressing Goal: Ability to demonstrate warm and dry skin will improve Outcome: Progressing Goal: Circulation will improve to fullest extent possible Outcome: Progressing Problem: Lack of Knowledge: Goal: Ability to state ways to decrease the risk of falls will improve Outcome: Progressing Problem: Safety: Goal: Will remain free from falls Outcome: Progressing Goal: Will remain free from injury from falls Outcome: Progressing Goal: Will remain free from falls and injury in home environment Outcome: Progressing Clinical Goals for the Shift: Pulmonary hygiene; pain control; monitor VS; activity as tolerated * Plan of Care - Sarina Sorto RN - 06/18/2021 11:53 PM CDT Problem: Health Behavior: Goal: Understanding of discharge needs will improve Outcome: Progressing Problem: Activity: Goal: Mobility will improve Outcome: Progressing Problem: Lack of Knowledge: Goal: Understanding of ways to prevent future skin breakdown will improve Outcome: Progressing Goal: Ability to identify appropriate dietary choices will improve Outcome: Progressing Problem: Nutritional: Goal: Dietary intake will improve Outcome: Progressing Goal: Ability to maintain a balanced intake and output will improve Outcome: Progressing Problem: Skin Integrity: Goal: Risk for impaired skin integrity will decrease Outcome: Progressing Goal: Ability to demonstrate warm and dry skin will improve Outcome: Progressing Goal: Circulation will improve to fullest extent possible Outcome: Progressing Problem: Lack of Knowledge: Goal: Ability to state ways to decrease the risk of falls will improve Outcome: Progressing Problem: Safety: Goal: Will remain free from falls Outcome: Progressing Goal: Will remain free from injury from falls Outcome: Progressing Goal: Will remain free from falls and injury in home environment Outcome: Progressing Goals: Clinical Goals for the Shift: pain control, increase mobility and pulmonary hygiene Summary: * Plan of Care - Mariann Marshall RN - 06/18/2021 3:43 PM CDT [facility] following for iv antibiotics at discharge if patient goes home. Patient will need iv antibiotics for 3-4 weeks more. Patient has recommendations for IRF from PT as of 06/17. OT has not seen since 06/12. Per FREIGHT CLERK patient may not qualify for IRF but SW will follow for placement needs. ADD 06/22 * Plan of Care - Sury Grover RN - 06/18/2021 9:19 AM CDT Goals: Clinical Goals for the Shift: pain control, fall prevention, IS, OOB Summary: Problem: Health Behavior: Goal: Understanding of discharge needs will improve Outcome: Progressing Problem: Activity: Goal: Mobility will improve Outcome: Progressing Problem: Lack of Knowledge: Goal: Understanding of ways to prevent future skin breakdown will improve Outcome: Progressing Goal: Ability to identify appropriate dietary choices will improve Outcome: Progressing Problem: Nutritional: Goal: Dietary intake will improve Outcome: Progressing Goal: Ability to maintain a balanced intake and output will improve Outcome: Progressing Problem: Skin Integrity: Goal: Risk for impaired skin integrity will decrease Outcome: Progressing Goal: Ability to demonstrate warm and dry skin will improve Outcome: Progressing Goal: Circulation will improve to fullest extent possible Outcome: Progressing Problem: Lack of Knowledge: Goal: Ability to state ways to decrease the risk of falls will improve Outcome: Progressing Problem: Safety: Goal: Will remain free from falls Outcome: Progressing Goal: Will remain free from injury from falls Outcome: Progressing Goal: Will remain free from falls and injury in home environment Outcome: Progressing * Plan of Cristine - Benedict Sen RN - 06/17/2021 11:01 PM CDT Problem: Health Behavior: Goal: Understanding of discharge needs will improve Outcome: Progressing Problem: Activity: Goal: Mobility will improve Outcome: Progressing Problem: Lack of Knowledge: Goal: Understanding of ways to prevent future skin breakdown will improve Outcome: Progressing Goal: Ability to identify appropriate dietary choices will improve Outcome: Progressing Problem: Nutritional: Goal: Dietary intake will improve Outcome: Progressing Goal: Ability to maintain a balanced intake and output will improve Outcome: Progressing Problem: Skin Integrity: Goal: Risk for impaired skin integrity will decrease Outcome: Progressing Goal: Ability to demonstrate warm and dry skin will improve Outcome: Progressing Goal: Circulation will improve to fullest extent possible Outcome: Progressing Problem: Lack of Knowledge: Goal: Ability to state ways to decrease the risk of falls will improve Outcome: Progressing Problem: Safety: Goal: Will remain free from falls Outcome: Progressing Goal: Will remain free from injury from falls Outcome: Progressing Goal: Will remain free from falls and injury in home environment Outcome: Progressing Goals: Clinical Goals for the Shift: pain management, pulmonary hygiene, VSS, monitor I/Os Summary: Plan of care discussed with the patient. * Plan of Cristine - RedmondSriram cross RRT - 06/17/2021 6:04 PM CDT Patient ordered on vibratory PEP therapy for concern for pneumonia in left lung. Aerobika given to patient and instruction performed. Patient had a clear understanding of how to perform and was instructed to perform as frequently as he uses his incentive spirometer and patient understood. Will continue to monitor and can adjust therapy as needed. * Plan of Care - Ludivina Medrano RN - 06/17/2021 9:23 AM CDT Problem: Health Behavior: Goal: Understanding of discharge needs will improve Outcome: Progressing Problem: Activity: Goal: Mobility will improve Outcome: Progressing Problem: Lack of Knowledge: Goal: Understanding of ways to prevent future skin breakdown will improve Outcome: Progressing Goal: Ability to identify appropriate dietary choices will improve Outcome: Progressing Problem: Nutritional: Goal: Dietary intake will improve Outcome: Progressing Goal: Ability to maintain a balanced intake and output will improve Outcome: Progressing Problem: Skin Integrity: Goal: Risk for impaired skin integrity will decrease Outcome: Progressing Goal: Ability to demonstrate warm and dry skin will improve Outcome: Progressing Goal: Circulation will improve to fullest extent possible Outcome: Progressing Problem: Lack of Knowledge: Goal: Ability to state ways to decrease the risk of falls will improve Outcome: Progressing Problem: Safety: Goal: Will remain free from falls Outcome: Progressing Goal: Will remain free from injury from falls Outcome: Progressing Goal: Will remain free from falls and injury in home environment Outcome: Progressing Goals: Clinical Goals for the Shift: pain management, pulmonary hygiene, VSS Summary:Patient will remain free from falls. Patient's VSS will be taken or monitored. * Plan of Care - Sarina Sorto RN - 06/17/2021 1:57 AM CDT Problem: Health Behavior: Goal: Understanding of discharge needs will improve Outcome: Progressing Problem: Activity: Goal: Mobility will improve Outcome: Progressing Problem: Lack of Knowledge: Goal: Understanding of ways to prevent future skin breakdown will improve Outcome: Progressing Goal: Ability to identify appropriate dietary choices will improve Outcome: Progressing Problem: Nutritional: Goal: Dietary intake will improve Outcome: Progressing Goal: Ability to maintain a balanced intake and output will improve Outcome: Progressing Problem: Skin Integrity: Goal: Risk for impaired skin integrity will decrease Outcome: Progressing Goal: Ability to demonstrate warm and dry skin will improve Outcome: Progressing Goal: Circulation will improve to fullest extent possible Outcome: Progressing Problem: Lack of Knowledge: Goal: Ability to state ways to decrease the risk of falls will improve Outcome: Progressing Problem: Safety: Goal: Will remain free from falls Outcome: Progressing Goal: Will remain free from injury from falls Outcome: Progressing Goal: Will remain free from falls and injury in home environment Outcome: Progressing Goals: Clinical Goals for the Shift: pain management, pulmonary hygiene, monitor VSS and I/OS Summary: * Plan of Care - Mariann Marshall RN - 06/16/2021 2:18 PM CDT Report per DCAM: Patient not stable to discharge from the hospital. Patient being diuresed. Referrals: [facility] following for possible need for IV antibiotics at discharge. This CM will let SW know that patient has recommendations for IRF per PT from today. Support: Family Transportation: Per family F/U Appt: to be scheduled ADD: 06/19 Problem: Establish a safe discharge Goal: Implement a safe discharge home with family support and follow up. Case Management will follow for planning and referrals as needed. Mariann Marshall RN, Claims Associate For emergency needs from 4:31pm-7:59am, please call the superintendent schools For weekend/holiday needs from 8am-430pm, please call the Weekend Claims Associate . * Plan of Care - Raymon, Suyapa Izaguirre RN - 06/16/2021 11:19 AM CDT Goals: Clinical Goals for the Shift: pain management, monitor VS and I/O, pulmonary hygine, Problem: Health Behavior: Goal: Understanding of discharge needs will improve Outcome: Progressing Problem: Activity: Goal: Mobility will improve Outcome: Progressing Problem: Lack of Knowledge: Goal: Understanding of ways to prevent future skin breakdown will improve Outcome: Progressing Goal: Ability to identify appropriate dietary choices will improve Outcome: Progressing Problem: Nutritional: Goal: Dietary intake will improve Outcome: Progressing Goal: Ability to maintain a balanced intake and output will improve Outcome: Progressing Problem: Skin Integrity: Goal: Risk for impaired skin integrity will decrease Outcome: Progressing Goal: Ability to demonstrate warm and dry skin will improve Outcome: Progressing Goal: Circulation will improve to fullest extent possible Outcome: Progressing Problem: Lack of Knowledge: Goal: Ability to state ways to decrease the risk of falls will improve Outcome: Progressing Problem: Safety: Goal: Will remain free from falls Outcome: Progressing Goal: Will remain free from injury from falls Outcome: Progressing Goal: Will remain free from falls and injury in home environment Outcome: Progressing Summary: plan of care discussed with patient * Assessment & Plan Note - Marco A Ward MD - 06/16/2021 10:33 AM CDT Associated Problem(s): ALFREDO (acute kidney injury) (HCC) -per renal: likely multifactorial. Patient still making adequate urine. -renally dose medications -continue to monitor renal function -trending down -plan to replace [place] and send home with it -F/U with urology * Provider Query - Benny Carpenter MD - 06/16/2021 10:02 AM CDT Conflicting documentation is present in the medical record. Specify the appropriate diagnosis and document in the medical record and on the form below. Provider Query 06/15: Empyema without systemic manifestations- Emely Moss NP Nephrology consult 06/15: Etiology of ALFREDO likely multifactorial - sepsis, hemodynamic changes, medication (vanc toxicity). ___Sepsis, POA ___Sepsis with ALFREDO, not POA ___Sepsis ruled out _x_ Clinically unable to determine Additional Provider Response: Patient presented with empyema. Taken to the OR for empyema evacuation and decortication. ALFREDO is probably related to medication toxicity. Clinical Indicators/Treatments: On admission, heart rate 95-100, WBC 32.0 Use of terms such as likely, suspected, possible, or probable (associated with a specific diagnosisthat is being evaluated, monitored, or treated as if it exists) are acceptable and can be coded in the inpatient setting when documented at the time of discharge. This documentation will become part of the patient???s medical record. Thank you, Eloina Mcfadden RN, BSN, CCDS Clinical Documentation Central Communications Specialist (C) [phone] [email or web address] * Plan of Care - Molly Sosa RN - 06/15/2021 8:55 PM CDT Problem: Health Behavior: Goal: Understanding of discharge needs will improve Outcome: Progressing Problem: Activity: Goal: Mobility will improve Outcome: Progressing Problem: Lack of Knowledge: Goal: Understanding of ways to prevent future skin breakdown will improve Outcome: Progressing Goal: Ability to identify appropriate dietary choices will improve Outcome: Progressing Problem: Nutritional: Goal: Dietary intake will improve Outcome: Progressing Goal: Ability to maintain a balanced intake and output will improve Outcome: Progressing Problem: Skin Integrity: Goal: Risk for impaired skin integrity will decrease Outcome: Progressing Goal: Ability to demonstrate warm and dry skin will improve Outcome: Progressing Goal: Circulation will improve to fullest extent possible Outcome: Progressing Problem: Lack of Knowledge: Goal: Ability to state ways to decrease the risk of falls will improve Outcome: Progressing Problem: Safety: Goal: Will remain free from falls Outcome: Progressing Goal: Will remain free from injury from falls Outcome: Progressing Goal: Will remain free from falls and injury in home environment Outcome: Progressing Goals: Clinical Goals for the Shift: Pain management, pulmonary hygiene, sleep hygiene, monitor VS IOs labs O2 Summary: Care plan discussed with patient. Will continue to monitor. * Plan of Care - Jyoti Rivera RN - 06/15/2021 6:05 PM CDT Goals: Clinical Goals for the Shift: monitor pain, maintain stable vital signs, tolerate PT without falls or injury Patient had episode of dizziness and lethargy during PT in am. ABG sent. Blood pressure medicationsadjusted. Patient alert, oriented x4 and feeling better the rest of the day. Given oxycodone twice for pain. 2 left chest tubes remain at - 20 suction. Problem: Health Behavior: Goal: Understanding of discharge needs will improve Outcome: Progressing Problem: Activity: Goal: Mobility will improve Outcome: Progressing Problem: Lack of Knowledge: Goal: Understanding of ways to prevent future skin breakdown will improve Outcome: Progressing Goal: Ability to identify appropriate dietary choices will improve Outcome: Progressing Problem: Nutritional: Goal: Dietary intake will improve Outcome: Progressing Goal: Ability to maintain a balanced intake and output will improve Outcome: Progressing Problem: Skin Integrity: Goal: Risk for impaired skin integrity will decrease Outcome: Progressing Goal: Ability to demonstrate warm and dry skin will improve Outcome: Progressing Goal: Circulation will improve to fullest extent possible Outcome: Progressing * Provider Query - Eloina Mcfadden - 06/15/2021 4:14 PM CDT Specify the etiology of the patient???s symptoms. ___ Sepsis (empyema with systemic manifestations) __x_ Empyema without systemic manifestations ___ Other, specify below ___ Clinically unable to determine Additional Provider Response: Clinical Indicators/Treatments: Empyema Heart rate 95-100 WBC 32.0 OR for decortication of empyema, started on Rocephin, Flagyl, Linezolid IV Adult SIRS/Sepsis Screening Criteria SIRS Temp >38.3 C (100.9 F) or <36 (96.8 F) HR (pulse) >90 Respiratory rate >20 WBC > 12,000 or <4,000 or >10% bands Sepsis 2 of 4 SIRS criteria present AND suspected/confirmed source of infection Severe Sepsis Sepsis plus at least one sign of NEW hypoperfusion or organ dysfunction not limited to but may include: Lactate >2 mmol/L INR > 1.5 or aPTT >60 seconds Platelet count <100,000 ?L?1 Bilirubin >2 mg/dL Creatinine >2 mg/dL (if no documentation of renal failure) Urine output <0.5 mL/kg/hr x 2 hours Acute respiratory failure with new need for mechanical ventilation or noninvasive ventilation Altered mental status or Encephalopathy (new or acutely worsened due to infection) One or more reading(s) of hypotension prior to 30ml/kg fluid bolus (SBP< 90 mmHG or MAP< 65, or SBP decrease of > 40 mmHG from baseline) Septic Shock Severe sepsis patients with: Two or more readings of hypotension (SBP <90 or MAP< 65) after 30ml/kg fluid bolus, often requiring vasopressors or Lactate >=4 Use of terms such as likely, suspected, possible, or probable (associated with a specific diagnosisthat is being evaluated, monitored, or treated as if it exists) are acceptable and can be coded in the inpatient setting when documented at the time of discharge. This documentation will become part of the patient???s medical record. Thank you, Eloina Mcfadden, RN, BSN, CCDS Clinical Documentation Central Communications Specialist (C) [phone] [email or web address] * Provider Query - Eloina Mcfadden - 06/15/2021 4:03 PM CDT Specify the diagnosis, after study, that best reflects the clinical condition being monitored, evaluated, or treated. Document in the medical record and on the form below. ___ Pneumonia w/ empyema and pleural abscess ___ Empyema and pleural abscess with other etiology (specify below) __x_ Other, specify below ___ Clinically unable to determine Additional Provider Response: Clinical Indicators/Treatments: PMH of PNA Chest CT 06/11: Moderate left-sided pleural effusion in keeping with known empyema. Left lower lobeopacity could represent atelectasis or pneumonia ID Progress Note 06/15: Intra-op. findings of several abscesses in LLL OP: L lung decortication for empyema Use of terms such as likely, suspected, possible, or probable (associated with a specific diagnosisthat is being evaluated, monitored, or treated as if it exists) are acceptable and can be coded in the inpatient setting when documented at the time of discharge. This documentation will become part of the patient???s medical record. Thank you, Eloina Mcfadden, RN, BSN, CCDS Clinical Documentation Central Communications Specialist (C) [phone] [email or web address] * Assessment & Plan Note - Malini Fernandez MD - 06/15/2021 1:49 PM CDTAssociated Problem(s): Empyema (CMS/HCC) ([facility]) The patient is a 70 y.o. male with PMH of COPD, ANDRZEJ, asthma, CKD, HTN, AICD, carotid stenosis s/p RCEA, PAD s/p angioplasty with stent placement LLE who was transferred from OSH for left empyema. Hewas diagnosed with pneumonia about 1 month ago that was treated unsuccessfully with azithro and prednisone taper. Admitted to OSH with luekocytosis of [address] chest 06/04 showed small to moderate multiloculated left pleural effusion consistent with empyema which was managed medically with antibiotics as patient declined drainage. Due to lack of improvement he later underwent thoracentesis on 06/08 with removal of thick purulent fluid and was transferred on 06/10 for surgical evaluation. Cultures from pleural fluid grew Strep intermedius. He was transferred here for surgical evaluation on 06/10. He was continued on vancomycin and cefepime. He underwent left thoracotomy with decortication on 06/12. Intraop findings included several fluid collections interiorly and posteriorly with severalabscesses in lower lobe, able to decorticate to reinflate the lower lobe although consolidated in some area, also created a pleural tent. Cultures from OR growing Strep intermedius and Staph hominis.Vancomycin was switched to linezolid on 06/14 due to high vanc troughs and continued on cefepime. CXR on 06/[address] in placed and mildly decreased left empyema with adjacent pulmonary opacities. Leukocytosis improved to 21. Recommendations: - Continue ctx 2g IV q24h and metronidazole 500mg PO q8h. - Start doxycyline 100mg PO q12h. - Discontinue linezolid. - CBC with diff, CMP weekly. - Duration pending, however, may transition to PO on ID f/u pending clinical improvement/CT imaging. - ID will sign off, see plan of care dated 06/19 for details. Doxycycline causes photosensitivity and patients should be advised to monitor sun exposure, including increased use of skin-protective clothing and sunscreen, and avoidance of tanning. Doxycycline may result in GI upset. In order to minimize the risk of esophageal ulceration, patients should be advised to take the medication with 8 ounces of water and remain sitting for 30 minutes after taking the pill. Rarely, doxycycline can be associated with pancreatitis, pseudotumor cerebri, elevated LFTs,esophageal ulceration, black tongue syndrome (reversible fungus infection that goes away with drug discontinuation). Divalent cations should be administered 4 hours before or after doxycycline if they are necessary. Metronidazole is associated with GI intolerance, metallic taste, headaches, dark urine. Rarely, it can be associated with seizures, encephalopathy, aseptic meningitis, Samuels-Dejuan syndrome, peripheral neuropathy, insomnia, and a disulfiram-like reaction with alcohol. Patients are advised to avoid alcohol while taking the medication. * Plan of Care - Elizabeth Mars RN - 06/15/2021 12:15 PM CDT Infusion referral received. Will need to assess patient and/or family for home infusion appropriateness, verify benefits for home infusion, and educate patient/family on home infusion process. Referrals are processed between 8am - 4:30pm Tuesday - Tuesday. For after hour emergencies please call [phone]. Any referrals received after 4pm will be processed the next day. For discharge planning purposes please keep in mind that referrals can take 24 or more hours to process. Elizabeth Mars Guest Services Assistant [phone] * Assessment & Plan Note - Emely Moss NP - 06/15/2021 8:24 AM CDT Associated Problem(s): Anemia - monitor - possibly R/T empyema * Plan of Care - Kyaw Van RN - 06/15/2021 12:45 AM CDT Goals: Problem: Health Behavior: Goal: Understanding of discharge needs will improve Outcome: Progressing Problem: Activity: Goal: Mobility will improve Outcome: Progressing Problem: Lack of Knowledge: Goal: Understanding of ways to prevent future skin breakdown will improve Outcome: Progressing Goal: Ability to identify appropriate dietary choices will improve Outcome: Progressing Problem: Nutritional: Goal: Dietary intake will improve Outcome: Progressing Goal: Ability to maintain a balanced intake and output will improve Outcome: Progressing Problem: Skin Integrity: Goal: Risk for impaired skin integrity will decrease Outcome: Progressing Goal: Ability to demonstrate warm and dry skin will improve Outcome: Progressing Goal: Circulation will improve to fullest extent possible Outcome: Progressing Clinical Goals for the Shift: Pulmonary hygiene; pain control; monitor VS; activity as tolerated Summary: Patient progressing towards goals. Patient verbalizes understanding of education and is participating in care. * Plan of Care - Nabil Gonzalez RN - 06/14/2021 12:21 PM CDT Problem: Health Behavior: Goal: Understanding of discharge needs will improve Outcome: Progressing Problem: Activity: Goal: Mobility will improve Outcome: Progressing Problem: Lack of Knowledge: Goal: Understanding of ways to prevent future skin breakdown will improve Outcome: Progressing Goal: Ability to identify appropriate dietary choices will improve Outcome: Progressing Problem: Nutritional: Goal: Dietary intake will improve Outcome: Progressing Goal: Ability to maintain a balanced intake and output will improve Outcome: Progressing Problem: Skin Integrity: Goal: Risk for impaired skin integrity will decrease Outcome: Progressing Goal: Ability to demonstrate warm and dry skin will improve Outcome: Progressing Goal: Circulation will improve to fullest extent possible Outcome: Progressing Clinical Goals for the Shift: Pulmonary hygiene; pain control; monitor VS; activity as tolerated * Plan of Nabil Hudson RN - 06/13/2021 10:30 AM CDT Problem: Health Behavior: Goal: Understanding of discharge needs will improve Outcome: Progressing Problem: Activity: Goal: Mobility will improve Outcome: Progressing Problem: Lack of Knowledge: Goal: Understanding of ways to prevent future skin breakdown will improve Outcome: Progressing Goal: Ability to identify appropriate dietary choices will improve Outcome: Progressing Problem: Nutritional: Goal: Dietary intake will improve Outcome: Progressing Goal: Ability to maintain a balanced intake and output will improve Outcome: Progressing Problem: Skin Integrity: Goal: Risk for impaired skin integrity will decrease Outcome: Progressing Goal: Ability to demonstrate warm and dry skin will improve Outcome: Progressing Goal: Circulation will improve to fullest extent possible Outcome: Progressing Clinical Goals for the Shift: Pulmonary hygiene; pain control; monitor VS; OOB as tolerated * Plan of Sarina Modi RN - 06/12/2021 11:30 PM CDT Problem: Health Behavior: Goal: Understanding of discharge needs will improve Outcome: Progressing Problem: Activity: Goal: Mobility will improve Outcome: Progressing Problem: Lack of Knowledge: Goal: Understanding of ways to prevent future skin breakdown will improve Outcome: Progressing Goal: Ability to identify appropriate dietary choices will improve Outcome: Progressing Problem: Nutritional: Goal: Dietary intake will improve Outcome: Progressing Goal: Ability to maintain a balanced intake and output will improve Outcome: Progressing Problem: Skin Integrity: Goal: Risk for impaired skin integrity will decrease Outcome: Progressing Goal: Ability to demonstrate warm and dry skin will improve Outcome: Progressing Goal: Circulation will improve to fullest extent possible Outcome: Progressing Goals: Clinical Goals for the Shift: pain control, pulmonary hygiene and monitor I/Os and VSS Summary: * Brief Op Note - Pradeep Palma MD - 06/12/2021 3:05 PM CDT Operative Progress Note Surgical Team: Surgeon(s) and Role: * Benny Carpenter MD - Primary * Pradeep Palma MD - Resident - Assisting Anesthesiologist: Talon Resendiz MD Anesthesia Fellow: Odette Cook MD; David Rae MD Parts Counter Sales Person: Brooklyn Gruber MD Heel Seat Trimmer: Cherie Tenorio RN Heel Seat Trimmer Relief: Andry Ibrahim RN Scrub Relief: Yossi Harrington RN Scrub: Thom Bright RN DATE OF SURGERY : 06/12/2021 Preoperative Diagnosis: Pre-op Diagnosis * Empyema lung (CMS/HCC) (HCC) [J86.9] Postoperative Diagnosis: Post-op Diagnosis * Empyema lung (CMS/HCC) (HCC) [J86.9] Procedure(s): Procedure(s) (LRB): THORACOTOMY, decortication (Left) Operative Findings: Left lower lobe abscesses and empyema Estimated Blood Loss: No blood loss documented. Intraoperative Fluids: 1300 mls Specimens: No specimen collected in procedure Implants: Nothing was implanted during the procedure Blood/Blood Products Transfused: 0 mls Complications: None Condition on Discharge from the operating room was stable Pradeep Palma MD Date: 06/12/2021 Time: 4:55 PM TEACHING ATTESTATION : I was present and directly participated in the entire procedure (including opening and closing). Cosigned by Benny Carpenter MD at 06/12/2021 5:26 PM CDT * Plan of Care - Vicki Cheung RN - 06/12/2021 1:12 AM CDT Goals: Clinical Goals for the Shift: monitor labs, vitals and I&Os; pain management; pulmonary hygiene Summary: Problem: Health Behavior: Goal: Understanding of discharge needs will improve Outcome: Progressing Problem: Activity: Goal: Mobility will improve Outcome: Progressing Problem: Lack of Knowledge: Goal: Understanding of ways to prevent future skin breakdown will improve Outcome: Progressing Goal: Ability to identify appropriate dietary choices will improve Outcome: Progressing Problem: Nutritional: Goal: Dietary intake will improve Outcome: Progressing Goal: Ability to maintain a balanced intake and output will improve Outcome: Progressing Problem: Skin Integrity: Goal: Risk for impaired skin integrity will decrease Outcome: Progressing Goal: Ability to demonstrate warm and dry skin will improve Outcome: Progressing Goal: Circulation will improve to fullest extent possible Outcome: Progressing * Op Note - Benny Carpenter MD - 06/12/2021 12:00 AM CDT Surgeon Benny López MD. Bit Welder Pradeep Palma MD. Preop Diagnosis Left-sided empyema. Postop Diagnosis Left-sided empyema. Procedures Performed 1. Left thoracotomy. 2. Empyectomy. 3. Lung decortication. 4. Pleural tent. Anesthesia General. Indications for the Procedure Mr. Hill is a 70-year-old male patient that was transferred from an outside hospital with a left-sided empyema. The patient had a history of pneumonia about a month ago. CT scan demonstrated a complex loculated fluid collection. Therefore, he was taken to the OR for the aforementioned procedure. Findings After entering the chest, the lung was heavily stuck to the chest wall. However, we were able to get in extrapleurally. We then got in through the parietal pleura, encountered several fluid collections anteriorly and posteriorly. There were several abscesses in the lower lobe. We were able to decorticate to reinflate the lower lobe for the most part. However, it was still consolidated in some areas. We created a pleural tent to have apposition of the pleura to the lung. We decorticated mostly the lower lobe but also some parts of the upper lobe. Procedure Details The patient was brought to the OR, placed supine on the OR table. He was anesthetized and intubatedwith a double-lumen ET tube. The patient is receiving antibiotics on the floor and none were due atthe moment. He had bilateral compression for DVT prophylaxis. He was placed in the right lateral position and the left chest was prepped and draped in the surgical sterile fashion. After a time-out procedure, we started by doing a left posterolateral thoracotomy. We entered the chest in the 5th intercostal space. The posterior aspect of the 6th rib was shingled. Upon entering the chest, we saw that the lung was heavily stuck to the chest wall. A small laceration was done on the surface of the lung. We chose to enter the chest extrapleurally. Especially in the lower part of the chest. We then went through the parietal pleura and found a nice plane that was able to follow and basically uncover 2 large fluid collections, 1 in the posterior aspect of the lung and the other anteriorly in the mediastinum. Using blunt dissection, I was able to mobilize both lobes completely. Most of the superior lobe was normal. However, the lower lobe was consolidated and had several abscesses where pus wascoming through the lung. Some of this fluid was sent for culture. We started decorticating the lungand part of the pleura was sent for culture also. After we finished decorticating the lung, we reinflated the lung and we thought it was adequate. However, because of some consolidation of the left lower lobe, we created a pleural tent mostly in the lower part of the chest. After this we irrigated the chest cavity with multiple liters of warm saline. Hemostasis was then achieved. We placed two 28-[place] Silastic chest tubes, 1 posteriorly and 1 anteriorly into the apex. Both chest tubes were sec ured to the patient's skin with suture and connected to separate Pleur-evac. The lungs was reinflated without any complication. We closed the chest in the usual fashion with heavy Vicryl pericostal sutures for the ribs. The subcutaneous layers were closed in layers with Vicryl, Monocryl was used for the skin and Dermabond was applied to the wound. The patient was then placed supine. He was allowed to be awakened and he was extubated. He was transferred to recovery room in stable condition. All the counts including instrumentation, needle and gauzes were okay at the end of the case x2. There were no complications noted. I was present for the entire procedure from start to finish. Job ID/VF Job ID: [id number] * Plan of Care - Sury Peck RN - 06/11/2021 5:37 PM CDT Goals: Clinical Goals for the Shift: VSS, remain free from falls and injury, pain management Problem: Health Behavior: Goal: Understanding of discharge needs will improve Outcome: Progressing Problem: Activity: Goal: Mobility will improve Outcome: Progressing Problem: Lack of Knowledge: Goal: Understanding of ways to prevent future skin breakdown will improve Outcome: Progressing Goal: Ability to identify appropriate dietary choices will improve Outcome: Progressing Problem: Nutritional: Goal: Dietary intake will improve Outcome: Progressing Goal: Ability to maintain a balanced intake and output will improve Outcome: Progressing Problem: Skin Integrity: Goal: Risk for impaired skin integrity will decrease Outcome: Progressing Goal: Ability to demonstrate warm and dry skin will improve Outcome: Progressing Goal: Circulation will improve to fullest extent possible Outcome: Progressing Summary: Patient transferred into [facility] from [id number] * Assessment & Plan Note - Samra Hurtado NP - 06/11/2021 8:06 AM CDT Associated Problem(s): Hypertension Has been normotensive while inpatient - increase BB - Lisinopril and HCTZ on hold * Assessment & Plan Note - Samra Hurtado NP - 06/11/2021 8:05 AM CDT Associated Problem(s): 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 - hold AC * Assessment & Plan Note - Samra Hurtado NP - 06/11/2021 8:00 AM CDT Associated Problem(s): PVD (peripheral vascular disease) ([facility]) S/p peripheral artery angioplasty with stent placement x3. Takes Plavix at home. According to OSH records, last dose was 06/03. - hold Plavix * Assessment & Plan Note - Samra Hurtado NP - 06/11/2021 7:58 AM CDT Associated Problem(s): COPD (chronic obstructive pulmonary disease) ([facility]) Wears 2L O2 overnight, has ANDRZEJ - continue home inhaler * Assessment & Plan Note - Samra Hurtado NP - 06/11/2021 7:55 AM CDT Associated Problem(s): Hyperkalemia (Resolved 06/19/2021) - Lisinopril on hold - monitor on tele * Assessment & Plan Note - Samra Hurtado NP - 06/11/2021 7:49 AM CDT Associated Problem(s): CKD (chronic kidney disease) stage 4, GFR 15-29 ml/min ([facility]) ([facility]) At time of admission creat baseline 2.5 - renal following - Avoid other nephrotoxic medications - Monitor labs * Assessment & Plan Note - Samra Hurtado NP - 06/11/2021 7:41 AM CDT Associated Problem(s): Empyema ([facility]) ([facility]) Empyema without systemic manifestations WBC: 13.5, afebrile. OSH CT shows small to moderate loculated pleural effusion. - s/p L thoracotomy and decortication on 06/12 - he has progressed well and will be going home in AM - IV antibiotics * Plan of Care - Daniela Pulido RN - 06/11/2021 5:11 AM CDT Goals: Clinical Goals for the Shift: vss, monitor O2 status, sleep hygiene, admission info Summary: Pt saturated >95% overnight on 3L O2. Pt was SOB upon admission, albuterol tx completed. EKG obtained and lokelma given for K of 5.4. Abx infused. Admission documentation completed. Vss. Sleep hygiene promoted. Problem: Health Behavior: Goal: Understanding of discharge needs will improve Outcome: Progressing Problem: Activity: Goal: Mobility will improve Outcome: Progressing Problem: Lack of Knowledge: Goal: Understanding of ways to prevent future skin breakdown will improve Outcome: Progressing Goal: Ability to identify appropriate dietary choices will improve Outcome: Progressing Problem: Nutritional: Goal: Dietary intake will improve Outcome: Progressing Goal: Ability to maintain a balanced intake and output will improve Outcome: Progressing Problem: Skin Integrity: Goal: Risk for impaired skin integrity will decrease Outcome: Progressing Goal: Ability to demonstrate warm and dry skin will improve Outcome: Progressing Goal: Circulation will improve to fullest extent possible Outcome: Progressing documented in this encounter Plan of Treatment Pending Results Name Type Priority Associated Diagnoses Date /Time Type and screen Lab Timed 9:34 PM CDT Scheduled Orders Name Type Priority Associated Diagnoses Orde r Schedule Type and screen Lab Routine Once for 1 Occurrences starting 06/11/2021 until 06/11/2021 ECG 12 lead ECG STAT Once for 1 Oc currences starting 06/12/2021 until 06/12/2021 documented as of this encounter Procedures Procedure Name Priority Date/Time Associated Diagnosis Comments URINALYSIS AND REFLEX TO MICROSCOPIC AND CULTURE Routine 06/21/2021 11:11 PM CDT URINALYSIS, MICROSCOPIC ONLY Routine 06/21/2021 11:11 PM CDT URINE CULTURE Routine 06/21/2021 11:11 PM CDT EGFR Routine 06/21/2021 10:29 PM CDT CBC WITHOUT DIFFERENTIAL Routine 06/21/2021 10:29 PM CDT PHOSPHORUS Routine 06/21/2021 10:29 PM CDT MAGNESIUM Routine 06/21/2021 10:29 PM CDT BASIC METABOLIC PANEL Routine 06/21/2021 10:29 PM CDT PEP THERAPY Routine 06/21/2021 10:00 PM CDT PEP THERAPY Routine 06/20/2021 10:00 PM CDT URINALYSIS AND REFLEX TO MICROSCOPIC AND CULTURE Routine 06/20/2021 9:56 AM CDT URINALYSIS, MICROSCOPIC ONLY Routine 06/20/2021 9:56 AM CDT URINE CULTURE Routine 06/20/2021 9:56 AM CDT EGFR Routine 06/19/2021 10:24 PM CDT BASIC METABOLIC PANEL Routine 06/19/2021 10:24 PM CDT PEP THERAPY Routine 06/19/2021 10:00 PM CDT CENTRAL LINE PLACEMENT > 5 YEARS IP Routine 06/19/2021 5:17 PM CDT EGFR STAT 06/19/2021 1:48 AM CDT MAGNESIUM STAT 06/19/2021 1:48 AM CDT BASIC METABOLIC PANEL STAT 06/19/2021 1:48 AM CDT URINALYSIS AND REFLEX TO MICROSCOPIC AND CULTURE Routine 06/19/2021 12:57 AM CDT URINALYSIS, MICROSCOPIC ONLY Routine 06/19/2021 12:57 AM CDT URINE CULTURE Routine 06/19/2021 12:57 AM CDT EGFR STAT 06/18/2021 9:41 AM CDT CBC WITHOUT DIFFERENTIAL STAT 06/18/2021 9:41 AM CDT BASIC METABOLIC PANEL STAT 06/18/2021 9:41 AM CDT XR CHEST 1 VIEW IP Routine 06/17/2021 6:25 PM CDT CBC WITHOUT DIFFERENTIAL STAT 06/17/2021 10:12 AM CDT XR CHEST 1 VIEW IP Routine 06/17/2021 4:52 AM CDT TRANSFUSE RED BLOOD CELLS Timed 06/17/2021 1:15 AM CDT PREPARE RBC Timed 06/17/2021 12:26 AM CDT DIFFERENTIAL AUTO STAT 06/16/2021 11: 15 PM CDT CBC WITH AUTO DIFFERENTIAL STAT 06/16/2021 11:15 PM CDT EGFR Routine 06/16/2021 10:23 PM CDT CBC WITHOUT DIFFERENTIAL Routine 06/16/2021 10:23 PM CDT BASIC METABOLIC PANEL Routine 06/16/2021 10:23 PM CDT EGFR Routine 06/16/2021 2:09 PM CDT BASIC METABOLIC PANEL Routine 06/16/2021 2:09 PM CDT EGFR Routine 06/15/2021 9:55 PM CDT CBC WITHOUT DIFFERENTIAL Routine 06/15/2021 9:55 PM CDT BASIC METABOLIC PANEL Routine 06/15/2021 9:55 PM CDT URINALYSIS AND REFLEX TO MICROSCOPIC AND CULTURE Routine 06/15/2021 3:44 PM CDT URINALYSIS, MICROSCOPIC ONLY Routine 06/15/2021 3:44 PM CDT SODIUM, URINE, RANDOM Routine 06/15/2021 2:07 PM CDT POTASSIUM, URINE, RANDOM Routine 06/15/2021 2:07 PM CDT CREATININE, URINE, RANDOM Routine 06/15/2021 2:07 PM CDT CHLORIDE, URINE, RANDOM Routine 06/15/2021 2:07 PM CDT EGFR STAT 06/15/2021 10:47 AM CDT TYPE AND SCREEN STAT 06/15/2021 10:47 AM CDT BLOOD GAS, ARTERIAL STAT 06/15/2021 1 0:47 AM CDT BASIC METABOLIC PANEL STAT 06/15/2021 10:47 AM CDT XR CHEST 1 VIEW Timed 06/15/2021 8:53 AM CDT XR CHEST 1 VIEW ED Urgent/IP Urgent 06/15/2021 12:26 AM CDT POTASSIUM, WHOLE BLOOD Routine 06/15/2021 12:05 AM CDT EGFR Timed 06/14/2021 8:33 PM CDT CBC WITHOUT DIFFERENTIAL Routine 06/14/2021 8:33 PM CDT PHOSPHORUS Timed 06/14/2021 8:33 PM CDT MAGNESIUM Timed 06/14/2021 8:33 PM CDT BASIC METABOLIC PANEL Timed 06/14/2021 8:33 PM CDT EGFR Routine 06/14/2021 12:22 AM CDT CRITICAL RESULT CALLBACK CHEMISTRY Timed 06/14/2021 12:22 AM CDT CBC WITHOUT DIFFERENTIAL Routine 06/14/2021 12:22 AM CDT VANCOMYCIN LEVEL TROUGH Timed 06/14/2021 12:22 AM CDT BASIC METABOLIC PANEL Routine 06/14/2021 12:22 AM CDT EGFR Timed 06/13/2021 7:51 AM CDT CBC WITHOUT DIFFERENTIAL Timed 06/13/2021 7:51 AM CDT BASIC METABOLIC PANEL Timed 06/13/2021 7:51 AM CDT XR CHEST 1 VIEW ED Urgent/IP Urgent 06/12/2021 6:37 PM CDT POC BLOOD GAS AND CHEMISTRIES, ARTERIAL Routine 06/12/2021 6:03 PM CDT POC BLOOD GAS AND CHEMISTRIES, ARTERIAL Routine 06/12/2021 5:22 PM CDT POC BLOOD GAS AND CHEMISTRIES, ARTERIAL Routine 06/12/2021 5:03 PM CDT TISSUE AEROBIC AND ANAEROBIC CULTURE AND GRAM STAIN Routine 06/12/2021 4:19 PM CDT POC BLOOD GAS AND CHEMISTRIES, ARTERIAL Routine 06/12/2021 4:02 PM CDT AEROBIC AND ANAEROBIC CULTURE AND GRAM STAIN Routine 06/12/2021 3:31 PM CDT POC BLOOD GAS AND CHEMISTRIES, ARTERIAL Routine 06/12/2021 2:48 PM CDT PREPARE RBC STAT 06/12/2021 1:52 PM CDT THORACOTOMY 06/12/2021 1:48 PM CDT Empyema lung (CMS/HCC) (HCC) CRITICAL RESULT CALLBACK CHEMISTRY STAT 06/12/2021 12:13 PM CDT VANCOMYCIN LEVEL TROUGH STAT 06/12/2021 12:13 PM CDT EGFR Routine 06/11/2021 9:34 PM CDT APTT Timed 06/11/2021 9:34 PM CDT PROTIME-INR Timed 06/11/2021 9:34 PM CDT CBC WITHOUT DIFFERENTIAL Routine 06/11/2021 9:34 PM CDT BASIC METABOLIC PANEL Routine 06/11/2021 9:34 PM CDT EGFR Routine 06/11/2021 11:58 AM CDT BASIC METABOLIC PANEL Routine 06/11/2021 11:58 AM CDT B CHECK SAMPLE STAT 06/11/2021 5:22 AM CDT ECG 12-LEAD STAT 06/11/2021 2:23 AM CDT POTASSIUM, WHOLE BLOOD STAT 06/11/2021 1:55 AM CDT TYPE AND SCREEN Timed 06/11/2021 1:55 AM CDT XR CHEST 1 VIEW ED Urgent/IP Urgent 06/10/2021 11:52 PM CDT EGFR Routine 06/10/2021 11:04 PM CDT DIFFERENTIAL AUTO Routine 06/10/2021 11: 04 PM CDT CBC WITH AUTO DIFFERENTIAL Routine 06/10/2021 11:04 PM CDT PHOSPHORUS Routine 06/10/2021 11:04 PM CDT MAGNESIUM Routine 06/10/2021 11:04 PM CDT COMPREHENSIVE METABOLIC PANEL Routine 06/10/2021 11:04 PM CDT US TRANSFER OF OUTSIDE FILMS Routine 06/10/2021 10:52 PM CDT Diagnosis unknown XR TRANSFER OF OUTSIDE FILMS Routine 06/10/2021 10:51 PM CDT Diagnosis unknown XR TRANSFER OF OUTSIDE FILMS Routine 06/10/2021 10:50 PM CDT Diagnosis unknown NM OUTSIDE REFERENCE Routine 06/10/2021 10:49 PM CDT Diagnosis unknown [address] BODY OUTSIDE REFERENCE Routine 06/10/2021 10:48 PM CDT Diagnosis unknown US TRANSFER OF OUTSIDE FILMS Routine 06/10/2021 10:47 PM CDT Diagnosis unknown CT BODY OUTSIDE CONSULT Routine 06/10/2021 10:44 PM CDT Diagnosis unknown documented in this encounter Results * Urine culture Urine (06/21/2021 11:11 PM CDT) Report Final Report: No growth [facility] Urine 06/21/2021 11:1 1 PM CDT 06/22/2021 12:23 AM CDT Narrative [facility] - 06/23/2021 7:34 AM CDT Urine culture reflexed based upon urinalysis results. Testing performed by [facility] ([phone]) us Benny López MD LAB MICROBIOLOGY - GENERAL ORDERABLES Final Result [facility] [place] [address] * (ABNORMAL) Urinalysis, microscopic only (06/21/2021 11:11 PM CDT) WBC, ur 11-20(A) 0 - 5 /HPF [facility] RBC, ur 3-5(A) 0 - 2 /HPF [facility] Bacteria, ur Trace(A) [facility] Mucous, ur Present(A) [facility] Culture Reflex Comment Reflex to urine culture will be performed. [facility] Urine 06/21/2021 11:1 1 PM CDT 06/21/2021 11:27 PM CDT Benny López MD LAB URINE ORDERAB LES Final Result Performing Organization Address [facility]/ZIP Co de Phone Number [facility] [place] [address] * (ABNORMAL) Urinalysis reflex to microscopic and culture Urine (06/21/2021 11:11 PM CDT) Color, ur Straw Yellow [facility] Clarity, ur Clear Clear [facility] Specific gravity, ur 1.016 1.003 - 1.030 [facility] pH, urine 6 [facility] Protein, ur ql 1+(A) Negative [facility] Glucose, ur ql Negative Negative [facility] Ketones, ur Negative Negative [facility] Bilirubin, ur Negative Negative [facility] Blood, ur Trace(A) Negative [facility] Urobilinogen, ur <2.0 <2.0 mg/dL [facility] Nitrite, ur Negative Negative [facility] Leukocyte esterase, ur Trace(A) Negative [facility] UA reflex comment Reflex to microscopic UA will be performed. [facility] Urine 06/21/2021 11:1 1 PM CDT 06/21/2021 11:27 PM CDT Narrative [facility] - 06/22/2021 12:05 AM CDT ?? Urine pH is affected by diet, medications, systemic acid-base disturbances, and renal tubular function. ??pH may affect urinary stone formation. ??For example, urine pH below 6.0 may help reduce the tendency for calcium phosphate stones and pH greater than 6.0 may reduce the tendency for uric acid stone formation. Source: [facility] [employer]. Last revised 09-01-2017 Benny López MD LAB MICROBIOLOGY - GENERAL ORDERABLES Final Result Performing Organization Address [facility]/ZIP Co de Phone Number [facility] Department [place] [address] * (ABNORMAL) eGFR (06/21/2021 10:29 PM CDT) eGFR 27(L) 90 - 130 mL/min/1.7 3 m2 [facility] Comment: Interpretive Data Reference Interval Normal ?>/= [...] interpretive data was last reviewed 2020 Blood 06/21/2021 10:2 9 PM CDT 06/21/2021 10:54 PM CDT us Benny López MD LAB BLOOD ORDERAB LES Final Result [facility] [place] [address] * (ABNORMAL) CBC without differential (06/21/2021 10:29 PM CDT) WBC 10.0(H) 3.8 - 9.9 K/cumm [facility] Hgb 9.2(L) 13.0 - 17.5 g/dL [facility] Hct 30.3(L) 38.9 - 50.3 % [facility] Plt 134(L) 150 - 400 K/cumm [facility] MPV 11.0 9.1 - 12.3 fL [facility] RBC 3.21(L) 4.30 - 5.80 M/cumm [facility] MCV 94.4 81.3 - 96.4 fL [facility] MCH 28.7 27.1 - 33.3 pg [facility] MCHC 30.4(L) 32.3 - 35.7 g/dL [facility] RDW CV 14.6 11.1 - 14.9 % [facility] RDW SD 49.9(H) 35.7 - 48.1 fL [facility] NRBC abs 0.00 0.00 - 0.01 K/cumm [facility] Blood 06/21/2021 10:2 9 PM CDT 06/21/2021 10:55 PM CDT us Benny López MD LAB BLOOD ORDERAB LES Final Result [facility] Department [place] [employer] [place] [address] * Phosphorus (06/21/2021 10:29 PM CDT) Phosphorus, pl 2.7 2.3 - 4.5 mg/dL [facility] Blood 06/21/2021 10:2 9 PM CDT 06/21/2021 10:54 PM CDT Benny López MD LAB BLOOD ORDERAB LES Final Result [facility] Department [place] [address] * Magnesium (06/21/2021 10:29 PM CDT) Magnesium 1.6 1.4 - 2.5 mg/dL [facility] Blood 06/21/2021 10:2 9 PM CDT 06/21/2021 10:54 PM CDT us Benny López MD LAB BLOOD ORDERAB LES Final Result [facility] Department [place] [address] * (ABNORMAL) Basic metabolic panel (06/21/2021 10:29 PM CDT) [facility] Sodium 138 135 - 145 mmol/L [facility] Potassium, pl 3.8 3.3 - 4.9 mmol/L [facility] Chloride 100 97 - 110 mmol/L [facility] CO2 29 22 - 32 mmol/L [facility] Anion gap 9 2 - 15 mmol/L [facility] BUN 27(H) 8 - 25 mg/dL [facility] Creatinine 2.40(H) 0.80 - 1.30 mg/dL [facility] Glucose 132 70 - 199 mg/dL [facility] [...] Current interpretive data was last revised 2017. Calcium 8.3(L) 8.5 - 10.3 mg/dL [facility] Blood 06/21/2021 10:2 9 PM CDT 06/21/2021 10:54 PM CDT Benny López MD LAB BLOOD ORDERAB LES Final Result [facility] Department [place] [address] * (ABNORMAL) Urinalysis, microscopic only (06/20/2021 9:56 AM CDT) WBC, ur 21-50(A) 0 - 5 /HPF [facility] RBC, ur 11-20(A) 0 - 2 /HPF [facility] Bacteria, ur Trace(A) [facility] Mucous, ur Present(A) [facility] Urine 06/20/2021 9:56 AM CDT 06/20/2021 11:17 AM CDT us Benny López MD LAB URINE ORDERAB LES Final Result Performing Organization Address [facility]/ZIP Co de Phone Number [facility] Department [place] [address] * Urine culture Urine, clean voided (06/20/2021 9:56 AM CDT) Report Final Report: No growth [facility] Urine, clean voided 06/20/2021 9:56 AM CDT 06/20/2021 12:03 PM CDT Narrative [facility] - 06/21/2021 1:17 PM CDT Indications for Culture:->Other (specify) Other Indication:->Recent catheterization with burning urination Testing performed by [facility] ([phone]) us Benny López MD LAB MICROBIOLOGY - GENERAL ORDERABLES Final Result Performing Organization Address [facility]/ZIP Co de Phone Number [facility] Department [place] [address] * (ABNORMAL) Urinalysis reflex to microscopic and culture Urine (06/20/2021 9:56 AM CDT) Color, ur Straw Yellow [facility] Clarity, ur Clear Clear [facility] Specific gravity, ur 1.016 1.003 - 1.030 [facility] pH, urine 6 [facility] Protein, ur ql 1+(A) Negative [facility] Glucose, ur ql Negative Negative [facility] Ketones, ur Negative Negative [facility] Bilirubin, ur Negative Negative [facility] Blood, ur 1+(A) Negative [facility] Urobilinogen, ur <2.0 <2.0 mg/dL [facility] Nitrite, ur Negative Negative [facility] Leukocyte esterase, ur 2+(A) Negative [facility] UA reflex comment Reflex to microscopic UA will be performed. [facility] Urine 06/20/2021 9:56 AM CDT 06/20/2021 11:17 AM CDT Narrative [facility] - 06/20/2021 11:20 AM CDT ?? Urine pH is affected by diet, medications, systemic acid-base disturbances, and renal tubular function. ??pH may affect urinary stone formation. ??For example, urine pH below 6.0 may help reduce the tendency for calcium phosphate stones and pH greater than 6.0 may reduce the tendency for uric acid stone formation. Source: [facility] [employer]. Last revised 09-01-2017 Benny López MD LAB MICROBIOLOGY - GENERAL ORDERABLES Final Result [facility] [place] [address] * (ABNORMAL) eGFR (06/19/2021 10:24 PM CDT) eGFR 20(L) 90 - 130 mL/min/1.7 3 m2 [facility] Comment: Interpretive Data Reference Interval Normal [...] interpretive data was last reviewed 2020 Blood 06/19/2021 10:2 4 PM CDT 06/19/2021 10:44 PM CDT Milagro Toth NP LAB BLOOD ORDERABLES Final Result [facility] [place] [address] * (ABNORMAL) Basic metabolic panel (06/19/2021 10:24 PM CDT) Sodium 139 135 - 145 mmol/L [facility] Potassium, pl 3.3 3.3 - 4.9 mmol/L [facility] Chloride 102 97 - 110 mmol/L [facility] CO2 30 22 - 32 mmol/L [facility] Anion gap 7 2 - 15 mmol/L [facility] BUN 37(H) 8 - 25 mg/dL [facility] Creatinine 3.01(H) 0.80 - 1.30 mg/dL [facility] Glucose 124 70 - 199 mg/dL [facility] [...] Current interpretive data was last revised 2017. Calcium 7.9(L) 8.5 - 10.3 mg/dL [facility] Blood 06/19/2021 10:2 4 PM CDT 06/19/2021 10:44 PM CDT us Milagro Toth NP LAB BLOOD ORDERABLES Final Result [facility] [place] [address] * IR Central Line Placement > 5 Years (06/19/2021 5:17 PM CDT) Anatomical Region Laterality Modality Body N/A X-Ray Angiograph y 06/19/2021 7:17 PM CDT Impressions 06/20/2021 8:15 AM CDT Successful nontunneled catheter placement. PLAN: The catheter is ready for immediate use. ??When treatment is completed, this catheter can be removed at the bedside according to standard hospital protocol. ?? Dictated by: Isauro Landers M.D. The radiology attending physician has personally reviewed this study, and had reviewed and/or edited this written report and agrees with it. Electronically signed by: Raimundo Tapia M.D. Narrative 06/20/2021 8:15 AM CDT EXAMINATION: ??NONTUNNELED CENTRAL VENOUS CATHETER PLACEMENT (STD) HISTORY: 70-year-old male presenting with a left-sided empyema status post left thoracotomy and decortication, request central venous catheter for intravenous antibiotics. ATTENDING PRESENCE: ??Raimundo Tapia M.D., the attending radiologist was present from the beginning to the end of the procedure. ?? Dr. Cortez (radiology fellow) was present and participated in the procedure. Dr. Landers (college president) was present and participated in the procedure. SEDATION: The patient did not require conscious sedation for the procedure. TECHNIQUE: ?? The risks, benefits and alternatives were discussed and informed consent was obtained. ??Prior to beginning the procedure, [place] Protocol was used to confirm the patient's identity and planned procedure. ??Fluoroscopy time has been recorded in the electronic medical record. Maximum sterile barriers including cap, mask, hand hygiene, sterile gloves, sterile gown, large sterile drape and 2% chlorhexidine for cutaneous antisepsis were used. ??The skin over the right internal jugular vein was sterilely prepped, draped and infiltrated with 1% buffered lidocaine. ?? Prior to the procedure, the target vessel was evaluated by ultrasound, an image of the patent vessel recorded, and this image placed in the patient's chart. ??After sterile prep, this vessel was accessed using realtime ultrasound guidance. A guidewire and catheter were then passed centrally using fluoroscopic guidance. ?? The intravascular length from the access site to the right atrium was assessed. After dilating the tract, a dual lumen geraldine was inserted over the guidewire. The catheter was flushed with 100U/ml heparin and secured in place. A sterile dressing was applied. ?? ESTIMATED BLOOD LOSS: Minimal. CONDITION: Stable DISCHARGED TO: Inpatient floor FINDINGS: The final fluoroscopic image demonstrates the catheter with its tip at the superior vena cava atrial junction. ??No complications are seen. Procedure Note Raimundo Tapia MD - 06/20/2021 EXAMINATION: NONTUNNELED CENTRAL VENOUS CATHETER PLACEMENT (STD) HISTORY: 70-year-old male presenting with a left-sided empyema status post left thoracotomy and decortication, request central venous catheter for intravenous antibiotics. ATTENDING PRESENCE: Raimundo Tapia M.D., the attending radiologist was present from the beginning to the end of the procedure. Dr. Cortez (radiology fellow) was present and participated in the procedure. Dr. Landers (college president) was present and participated in the procedure. SEDATION: The patient did not require conscious sedation for the procedure. TECHNIQUE: The risks, benefits and alternatives were discussed and informed consent was obtained. Prior to beginning the procedure, [place] Protocol was used to confirm the patient's identity and planned procedure. Fluoroscopy time has been recorded in the electronic medical record. Maximum sterile barriers including cap, mask, hand hygiene, sterile gloves, sterile gown, large sterile drape and 2% chlorhexidine for cutaneous antisepsis were [...] After dilating the tract, a dual lumen geraldine was inserted over the guidewire. The catheter was flushed with 100U/ml heparin and secured in place. A sterile dressing was applied. ESTIMATED BLOOD LOSS: Minimal. CONDITION: Stable DISCHARGED TO: Inpatient floor FINDINGS: The final fluoroscopic image demonstrates the catheter with its tip at the superior vena cava atrial junction. No complications are seen. IMPRESSION: Successful nontunneled catheter placement. PLAN: The catheter is ready for immediate use. When treatment is completed, this catheter can be removed at the bedside according to standard hospital protocol. Dictated by: Isauro Landers M.D. The radiology attending physician has personally reviewed this study, and had reviewed and/or edited this written report and agrees with it. Electronically signed by: Raimundo Tapia M.D. Emely Moss FREIGHT CLERK IMG IR PROCEDURES Final R esult * (ABNORMAL) eGFR (06/19/2021 1:48 AM CDT) [facility] eGFR 20(L) 90 - 130 mL/min/1.7 3 m2 [facility] Comment: Interpretive Data Reference Interval Normal ?>/= [...] interpretive data was last reviewed 2020 Blood 06/19/2021 1:48 AM CDT 06/19/2021 2:08 AM CDT Valarie Edwards MD LAB BLOOD ORDERABLES Tyra l Result Performing Organization Address [facility] de Phone Number [facility] [place] [address] * Magnesium (06/19/2021 1:48 AM CDT) [facility] Magnesium 1.6 1.4 - 2.5 mg/dL [facility] Blood 06/19/2021 1:48 AM CDT 06/19/2021 2:08 AM CDT Valarie Edwards MD LAB BLOOD ORDERABLES Tyra l Result Performing Organization Address [facility] de Phone Number [facility] [place] [address] * (ABNORMAL) Basic metabolic panel (06/19/2021 1:48 AM CDT) Pathologist [facility] Health Sodium 142 135 - 145 mmol/L [facility] Potassium, pl 3.2(L) 3.3 - 4.9 mmol/L [facility] Chloride 105 97 - 110 mmol/L [facility] CO2 28 22 - 32 mmol/L [facility] Anion gap 9 2 - 15 mmol/L [facility] BUN 39(H) 8 - 25 mg/dL [facility] Creatinine 3.05(H) 0.80 - 1.30 mg/dL [facility] Glucose 88 70 - 199 mg/dL [facility] [...] Current interpretive data was last revised 2017. Calcium 7.8(L) 8.5 - 10.3 mg/dL [facility] Blood 06/19/2021 1:48 AM CDT 06/19/2021 2:08 AM CDT us Valarie Edwards MD LAB BLOOD ORDERABLES Tyra bowling Result [facility] [place] [address] * Urine culture Urine, clean voided (06/19/2021 12:57 AM CDT) Report Final Report: Less than 100,000 colonies/mL (clinically insignificant growth based on current clinical standards) [facility] Organism (CLINICALLY INSIGNIFICANT GROWTH [facility] Urine, clean voided 06/19/2021 12:57 AM CDT 06/19/2021 1:29 AM CDT Narrative [facility] - 06/20/2021 7:59 AM CDT Urine culture reflexed based upon urinalysis results. Testing performed by [facility] ([phone]) Benny López MD LAB MICROBIOLOGY - GENERAL ORDERABLES Final Result Performing Organization Address [facility] Co de Phone Number [facility] [place] [address] * (ABNORMAL) Urinalysis, microscopic only (06/19/2021 12:57 AM CDT) WBC, ur 21-50(A) 0 - 5 /HPF [facility] RBC, ur 21-50(A) 0 - 2 /HPF [facility] Epithelial cells, squamous, ur 1-5 0 - 5 /HPF [facility] Bacteria, ur Trace(A) [facility] Culture Reflex Comment Reflex to urine culture will be performed. [facility] Urine, clean voided 06/19/2021 12:57 AM CDT 06/19/2021 1:04 AM CDT Benny López MD LAB URINE ORDERAB LES Final Result Performing Organization Address [facility] de Phone Number [facility] Department [place] [address] * (ABNORMAL) Urinalysis reflex to microscopic and culture Urine, clean voided (06/19/2021 12:57 AM CDT) Color, ur Straw Yellow [facility] Clarity, ur Clear Clear [facility] Specific gravity, ur 1.016 1.003 - 1.030 [facility] pH, urine 6 [facility] Protein, ur ql 2+(A) Negative [facility] Glucose[facility] ur ql Negative Negative [facility] Ketones, ur Negative Negative [facility] Bilirubin, ur Negative Negative [facility] Blood, ur 2+(A) Negative [facility] Urobilinogen, ur <2.0 <2.0 mg/dL [facility] Nitrite, ur Negative Negative [facility] Leukocyte esterase, ur 3+(A) Negative [facility] UA reflex comment Reflex to microscopic UA will be performed. [facility] Urine, clean voided 06/19/2021 12:57 AM CDT 06/19/2021 1:04 AM CDT Narrative [facility] - 06/19/2021 1:15 AM CDT ?? Urine pH is affected by diet, medications, systemic acid-base disturbances, and renal tubular function. ??pH may affect urinary stone formation. ??For example, urine pH below 6.0 may help reduce the tendency for calcium phosphate stones and pH greater than 6.0 may reduce the tendency for uric acid stone formation. Source: [facility]. Last revised 09-01-2017 us Benny López MD LAB MICROBIOLOGY - GENERAL ORDERABLES Final Result [facility] Department [place] [address] * (ABNORMAL) eGFR (06/18/2021 9:41 AM CDT) eGFR 18(L) 90 - 130 mL/min/1.7 3 m2 [facility] Comment: Interpretive Data Reference Interval Normal ?>/= [...] interpretive data was last reviewed 2020 Blood 06/18/2021 9:41 AM CDT 06/18/2021 9:56 AM CDT Emely Moss FREIGHT CLERK LAB BLOOD ORDERABLES Tyra l Result Performing Organization Address City/[facility]/ZIP Co de Phone Number [facility] Department [place] [address] * (ABNORMAL) Basic metabolic panel (06/18/2021 9:41 AM CDT) [facility] Sodium 136 135 - 145 mmol/L [facility] Potassium, pl 3.3 3.3 - 4.9 mmol/L [facility] Chloride 100 97 - 110 mmol/L [facility] CO2 27 22 - 32 mmol/L [facility] Anion gap 9 2 - 15 mmol/L [facility] BUN 45(H) 8 - 25 mg/dL [facility] Creatinine 3.30(H) 0.80 - 1.30 mg/dL [facility] Glucose 120 70 - 199 mg/dL [facility] [...] Current interpretive data was last revised 2017. Calcium 8.2(L) 8.5 - 10.3 mg/dL [facility] Blood 06/18/2021 9:41 AM CDT 06/18/2021 9:56 AM CDT Emely Moss FREIGHT CLERK LAB BLOOD ORDERABLES Tyra l Result Performing Organization Address [facility]/ZIP Co de Phone Number [facility] [place] [address] * (ABNORMAL) CBC without differential (06/18/2021 9:41 AM CDT) [facility] WBC 12.5(H) 3.8 - 9.9 K/cumm [facility] Hgb 8.5(L) 13.0 - 17.5 g/dL [facility] Hct 26.9(L) 38.9 - 50.3 % [facility] Plt 184 150 - 400 K/cumm [facility] MPV 10.8 9.1 - 12.3 fL [facility] RBC 2.92(L) 4.30 - 5.80 M/cumm [facility] MCV 92.1 81.3 - 96.4 fL [facility] MCH 29.1 27.1 - 33.3 pg [facility] MCHC 31.6(L) 32.3 - 35.7 g/dL [facility] RDW CV 14.2 11.1 - 14.9 % [facility] RDW SD 47.8 35.7 - 48.1 fL [facility] NRBC abs 0.00 0.00 - 0.01 K/cumm [facility] Blood 06/18/2021 9:41 AM CDT 06/18/2021 9:56 AM CDT Emely Moss FREIGHT CLERK LAB BLOOD ORDERABLES Tyra bowling Result [facility] Department [place] [address] * XR Chest 1 View (06/17/2021 6:25 PM CDT) Anatomical Region Laterality Modality Body, Chest N/A Computed Radiogr aphy 06/18/2021 8:40 AM CDT Impressions 06/18/2021 9:21 AM CDT 1 view of the chest is submitted for interpretation. Comparison is made to same day radiograph taken at 4:48 AM. Interval removal of the left thoracostomy tube. Left subclavian pacer defibrillator device with leads terminating in the right atrium and right ventricle. Unchanged loculated left ??empyema. Hazy left lower lobe opacity likely represents a combination of atelectasis and pneumonia. Emphysema. No pneumothorax. Right lung is clear. Cardiomediastinal silhouette is stable. Dictated by: Nikki Chambers M.D. The radiology attending physician has personally reviewed this study, and had reviewed and/or edited this written report and agrees with it. Electronically signed by: Dianne Weeks M.D. Narrative 06/18/2021 9:21 AM CDT EXAMINATION: 1 view chest radiograph Procedure Note Dianne Weeks MD - 06/18/2021 EXAMINATION: 1 view chest radiograph IMPRESSION: 1 view of the chest is submitted for interpretation. Comparison is made to same day radiograph taken at 4:48 AM. Interval removal of the left thoracostomy tube. Left subclavian pacer defibrillator device with leads terminating in the right atrium and right ventricle. Unchanged loculated left empyema. Hazy left lower lobe opacity likely represents a combination of atelectasis and pneumonia. Emphysema. No pneumothorax. Right lung is clear. Cardiomediastinal silhouette is stable. Dictated by: Nikki Chambers M.D. The radiology attending physician has personally reviewed this study, and had reviewed and/or edited this written report and agrees with it. Electronically signed by: Dianne Weeks M.D. Milagro Toth FREIGHT CLERK IMG XR PROCEDURES Final Re sult * (ABNORMAL) CBC without differential (06/17/2021 10:12 AM CDT) [facility] WBC 13.5(H) 3.8 - 9.9 K/cumm [facility] Hgb 8.1(L) 13.0 - 17.5 g/dL [facility] Hct 25.4(L) 38.9 - 50.3 % [facility] Plt 174 150 - 400 K/cumm [facility] MPV 10.6 9.1 - 12.3 fL [facility] RBC 2.79(L) 4.30 - 5.80 M/cumm [facility] MCV 91.0 81.3 - 96.4 fL [facility] MCH 29.0 27.1 - 33.3 pg [facility] MCHC 31.9(L) 32.3 - 35.7 g/dL [facility] RDW CV 14.0 11.1 - 14.9 % [facility] RDW SD 46.5 35.7 - 48.1 fL [facility] NRBC abs 0.00 0.00 - 0.01 K/cumm [facility] Blood 06/17/2021 10:1 2 AM CDT 06/17/2021 10:24 AM CDT Samra Hurtado FREIGHT CLERK LAB BLOOD ORDERABLES nal Result [facility] [place] [address] * XR Chest 1 View (06/17/2021 4:52 AM CDT) Anatomical Region Laterality Modality Body, Chest N/A Computed Radiogr aphy 06/17/2021 10:4 7 AM CDT Impressions 06/17/2021 11:50 AM CDT Comparison is made to prior chest radiograph dated 06/15/2021 8:45 AM. Left subclavian approach cardiac pacemaker with leads projecting over right atrium and right ventricle. Left thoracostomy tube in place. Previously visualized additional left thoracostomy tube has been removed. Cardiac silhouette is normal in size. Unchanged loculated left pleural effusion/empyema with interstitial and hazy left lung airspace opacities likely representing passive atelectasis and pneumonia. Right lung is clear. No right effusion. No pneumothorax. Dictated by: Pedro Sena M.D. The radiology attending physician has personally reviewed this study, and had reviewed and/or edited this written report and agrees with it. Electronically signed by: Cesar Khan M.D. Narrative 06/17/2021 11:50 AM CDT EXAMINATION: 1 view chest radiograph Procedure Note Cesar Kahn MD - 06/17/2021 EXAMINATION: 1 view chest radiograph IMPRESSION: Comparison is made to prior chest radiograph dated 06/15/2021 8:45 AM. Left subclavian approach cardiac pacemaker with leads projecting over right atrium and right ventricle. Left thoracostomy tube in place. Previously visualized additional left thoracostomy tube has been removed. Cardiac silhouette is normal in size. Unchanged loculated left pleural effusion/empyema with interstitial and hazy left lung airspace opacities likely representing passive atelectasis and pneumonia. Right lung is clear. No right effusion. No pneumothorax. Dictated by: Pedro Sena M.D. The radiology attending physician has personally reviewed this study, and had reviewed and/or edited this written report and agrees with it. Electronically signed by: Cesar Kahn M.D. Samra Hurtado FREIGHT CLERK IMG XR PROCEDURES Final Result * Transfuse RBC (06/17/2021 3:44 AM CDT) Blood specimen (specimen) Benny López MD BLOOD TRANSFUSION ORDERABLES Final Result [facility] Department [place] [address] * Transfuse RBC: 1 Units (06/17/2021 3:44 AM CDT) Blood specimen (specimen) Benny López MD BLOOD TRANSFUSION ORDERABLES Final Result * Prepare RBC: 1 Units (06/17/2021 12:26 AM CDT) Product code [id number] [facility] Unit Number [id number]- S [facility] Product Blood Type OPOS [facility] Dispense Status PRESUMED TRANSFUSED [facility] Blood 06/17/2021 12:2 6 AM CDT 06/17/2021 12:26 AM CDT Narrative [facility] - 06/18/2021 12:50 AM CDT Are special requirements needed? (all products are leukoreduced)->No Date required:-[id number] LRRBC # of [id number] Reasons:-Hgb <7 g/dL} Benny López MD BLOOD BANK PRODUC T ORDERABLES Final Result [facility] Department [place] [address] * (ABNORMAL) Differential, auto (06/16/2021 11:15 PM CDT) Neutrophil abs 11.8(H) 1.7 - 6.5 K/cumm [facility] Imm gran abs 0.3(H) 0.0 - 0.1 K/cumm [facility] Lymphocyte abs 0.7(L) 0.8 - 3.3 K/cumm [facility] Monocyte abs 0.7 0.2 - 0.8 K/cumm [facility] Eosinophil abs 0.2 0.0 - 0.5 K/cumm [facility] Basophil abs 0.0 0.0 - 0.1 K/cumm [facility] Neutrophil pct 85.9 % [facility] Comment: Interpretive Data Percent cell count reference ranges are not reported, since discordance with absolute values may lead to misinterpretation of CBC data. Current Interpretive Data was last revised on 2017. Imm gran pct 2.0 % [facility] Comment: Interpretive Data Percent cell count reference ranges are not reported, since discordance with absolute values may lead to misinterpretation of CBC data. Current Interpretive Data was last revised on 2017. Lymphocyte pct 5.4 % [facility] Comment: Interpretive Data Percent cell count reference ranges are not reported, since discordance with absolute values may lead to misinterpretation of CBC data. Current Interpretive Data was last revised on 2017. Monocyte pct 5.2 % [facility] Comment: Interpretive Data Percent cell count reference ranges are not reported, since discordance with absolute values may lead to misinterpretation of CBC data. Current Interpretive Data was last revised on 2017. Eosinophil pct 1.2 % [facility] Comment: Interpretive Data Percent cell count reference ranges are not reported, since discordance with absolute values may lead to misinterpretation of CBC data. Current Interpretive Data was last revised on 2017. Basophil pct 0.3 % [facility] Comment: Interpretive Data Percent cell count reference ranges are not reported, since discordance with absolute values may lead to misinterpretation of CBC data. Current Interpretive Data was last revised on 2017. Blood 06/16/2021 11:1 5 PM CDT 06/16/2021 11:30 PM CDT us Margie Serrato MD LAB BLOOD ORDERABLES Final Re sult [facility] Department [place] [address] * (ABNORMAL) CBC with auto differential (06/16/2021 11:15 PM CDT) WBC 13.7(H) 3.8 - 9.9 K/cumm [facility] Hgb 6.8(L) 13.0 - 17.5 g/dL [facility] Hct 22.0(L) 38.9 - 50.3 % [facility] Plt 153 150 - 400 K/cumm [facility] MPV 10.7 9.1 - 12.3 fL [facility] RBC 2.42(L) 4.30 - 5.80 M/cumm [facility] MCV 90.9 81.3 - 96.4 fL [facility] MCH 28.1 27.1 - 33.3 pg [facility] MCHC 30.9(L) 32.3 - 35.7 g/dL [facility] RDW CV 14.2 11.1 - 14.9 % [facility] RDW SD 46.8 35.7 - 48.1 fL [facility] NRBC abs 0.00 0.00 - 0.01 K/cumm [facility] Blood 06/16/2021 11:1 5 PM CDT 06/16/2021 11:30 PM CDT us Margie Serrato MD LAB BLOOD ORDERABLES Final Re sult Performing Organization Address [facility] Co de Phone Number [facility] Department [place] [address] * (ABNORMAL) eGFR (06/16/2021 10:23 PM CDT) [facility] eGFR 17(L) 90 - 130 mL/min/1.7 3 m2 [facility] Comment: Interpretive Data Reference Interval Normal [...] interpretive data was last reviewed 2020 Blood 06/16/2021 10:2 3 PM CDT 06/16/2021 10:44 PM CDT us Samra Hurtado FREIGHT CLERK LAB BLOOD ORDERABLES Fi nal Result Performing Organization Address City/[facility]/ZIP Co de Phone Number [facility] Department [place] [address] * (ABNORMAL) CBC without differential (06/16/2021 10:23 PM CDT) [facility] WBC 16.1(H) 3.8 - 9.9 K/cumm [facility] Hgb 6.1(C) 13.0 - 17.5 g/dL [facility] Comment:Critical result call ed to and read back by BELTRAN BRAUN RN on 06 16 2021 at 2251 to [facility]. Hct 19.8(L) 38.9 - 50.3 % [facility] Plt 197 150 - 400 K/cumm [facility] MPV 10.4 9.1 - 12.3 fL [facility] RBC 2.17(L) 4.30 - 5.80 M/cumm [facility] MCV 91.2 81.3 - 96.4 fL [facility] MCH 28.1 27.1 - 33.3 pg [facility] MCHC 30.8(L) 32.3 - 35.7 g/dL [facility] RDW CV 14.0 11.1 - 14.9 % [facility] RDW SD 46.3 35.7 - 48.1 fL [facility] NRBC abs 0.00 0.00 - 0.01 K/cumm [facility] Blood 06/16/2021 10:2 3 PM CDT 06/16/2021 10:44 PM CDT Samra Hurtado FREIGHT CLERK LAB BLOOD ORDERABLES Fi nal Result [facility] Department [place] [address] * (ABNORMAL) Basic metabolic panel (06/16/2021 10:23 PM CDT) [facility] Sodium 138 135 - 145 mmol/L [facility] Potassium, pl 3.8 3.3 - 4.9 mmol/L [facility] Chloride 102 97 - 110 mmol/L [facility] CO2 29 22 - 32 mmol/L [facility] Anion gap 7 2 - 15 mmol/L [facility] BUN 54(H) 8 - 25 mg/dL [facility] Creatinine 3.53(H) 0.80 - 1.30 mg/dL [facility] Glucose 123 70 - 199 mg/dL [facility] [...] Current interpretive data was last revised 2017. Calcium 8.2(L) 8.5 - 10.3 mg/dL [facility] Blood 06/16/2021 10:2 3 PM CDT 06/16/2021 10:44 PM CDT Samra Hurtado FREIGHT CLERK LAB BLOOD ORDERABLES nal Result [facility] [place] [address] * (ABNORMAL) eGFR (06/16/2021 2:09 PM CDT) eGFR 17(L) 90 - 130 mL/min/1.7 3 m2 [facility] Comment: Interpretive Data Reference Interval Normal [...] interpretive data was last reviewed 2020 Blood 06/16/2021 2:09 PM CDT 06/16/2021 2:40 PM CDT Samra Hurtado FREIGHT CLERK LAB BLOOD ORDERABLES nal Result [facility] Department [place] [address] * (ABNORMAL) Basic metabolic panel (06/16/2021 2:09 PM CDT) Sodium 137 135 - 145 mmol/L [facility] Potassium, pl 4.2 3.3 - 4.9 mmol/L [facility] Chloride 99 97 - 110 mmol/L [facility] CO2 29 22 - 32 mmol/L [facility] Anion gap 9 2 - 15 mmol/L [facility] BUN 54(H) 8 - 25 mg/dL [facility] Creatinine 3.46(H) 0.80 - 1.30 mg/dL [facility] Glucose 93 70 - 199 mg/dL [facility] [...] Current interpretive data was last revised 2017. Calcium 8.5 8.5 - 10.3 mg/dL [facility] Blood 06/16/2021 2:09 PM CDT 06/16/2021 2:40 PM CDT Samra Hurtado FREIGHT CLERK LAB BLOOD ORDERABLES Fi nal Result [facility] Department [place] [address] * (ABNORMAL) eGFR (06/15/2021 9:55 PM CDT) eGFR 17(L) 90 - 130 mL/min/1.7 3 m2 [facility] Comment: Interpretive Data Reference Interval Normal [...] interpretive data was last reviewed 2020 Blood 06/15/2021 9:55 PM CDT 06/15/2021 10:10 PM CDT Emely Moss FREIGHT CLERK LAB BLOOD ORDERABLES Tyra l Result Performing Organization Address [facility] Co de Phone Number [facility] Department [place] [address] * (ABNORMAL) CBC without differential (06/15/2021 9:55 PM CDT) WBC 18.4(H) 3.8 - 9.9 K/cumm [facility] Hgb 7.5(L) 13.0 - 17.5 g/dL [facility] Hct 23.9(L) 38.9 - 50.3 % [facility] Plt 200 150 - 400 K/cumm [facility] MPV 10.8 9.1 - 12.3 fL [facility] RBC 2.54(L) 4.30 - 5.80 M/cumm [facility] MCV 94.1 81.3 - 96.4 fL [facility] MCH 29.5 27.1 - 33.3 pg [facility] MCHC 31.4(L) 32.3 - 35.7 g/dL [facility] RDW CV 14.2 11.1 - 14.9 % [facility] RDW SD 48.3(H) 35.7 - 48.1 fL [facility] NRBC abs 0.00 0.00 - 0.01 K/cumm [facility] Blood 06/15/2021 9:55 PM CDT 06/15/2021 10:09 PM CDT Emely Moss FREIGHT CLERK LAB BLOOD ORDERABLES Tyra l Result Performing Organization Address [facility]/ZIP Co de Phone Number [facility] Department [place] [address] * (ABNORMAL) Basic metabolic panel (06/15/2021 9:55 PM CDT) Pathologist [facility] Sodium 136 135 - 145 mmol/L [facility] Potassium, pl 5.0(H) 3.3 - 4.9 mmol/L [facility] Chloride 101 97 - 110 mmol/L [facility] CO2 26 22 - 32 mmol/L [facility] Anion gap 9 2 - 15 mmol/L [facility] BUN 56(H) 8 - 25 mg/dL [facility] Creatinine 3.45(H) 0.80 - 1.30 mg/dL [facility] Glucose 141 70 - 199 mg/dL [facility] [...] Current interpretive data was last revised 2017. Calcium 8.7 8.5 - 10.3 mg/dL [facility] Blood 06/15/2021 9:55 PM CDT 06/15/2021 10:10 PM CDT Emely Moss NP LAB BLOOD ORDERABLES Tyra bowling Result [facility] [place] [address] * (ABNORMAL) Urinalysis, microscopic only (06/15/2021 3:44 PM CDT) WBC, ur 0-5 0 - 5 /HPF [facility] RBC, ur 0-2 0 - 2 /HPF [facility] Epithelial cells, squamous, ur 1-5 0 - 5 /HPF [facility] Mucous, ur Present(A) [facility] Culture Reflex Comment Reflex conditions for urine culture (WBC >10) not met. [facility] Urine 06/15/2021 3:44 PM CDT 06/15/2021 4:24 PM CDT Emely Moss FREIGHT CLERK LAB URINE ORDERABLES Tyra l Result Performing Organization Address [facility] Co de Phone Number [facility] [place] [address] * (ABNORMAL) Urinalysis reflex to microscopic and culture Urine (06/15/2021 3:44 PM CDT) Color, ur Straw Yellow [facility] Clarity, ur Clear Clear [facility] Specific gravity, ur 1.013 1.003 - 1.[address] [facility] [facility] pH, urine [address] [facility] [facility] Protein, ur ql 1+(A) Negative [facility] Glucose, ur ql Negative Negative [facility] Ketones, ur Negative Negative [facility] Bilirubin, ur Negative Negative [facility] Blood, ur 2+(A) Negative [facility] Urobilinogen, ur <2.0 <2.0 mg/dL [facility] Nitrite, ur Negative Negative [facility] Leukocyte esterase, ur Negative Negative [facility] UA reflex comment Reflex to microscopic UA will be performed. [facility] Urine 06/15/2021 3:44 PM CDT 06/15/2021 3:56 PM CDT Emely Moss [facility] MICROBIOLOGY - GENERA L ORDERABLES Final Result Performing Organization Address [facility] de Phone Number [facility] [place] [address] * Creatinine, urine, random (06/15/2021 2:07 PM CDT) Creatinine Ur 80.7 mg/dL [facility] Comment: Interpretive Data No reference range established. Current interpretive data was last revised 2019. Urine 06/15/2021 2:07 PM CDT 06/15/2021 2:16 PM CDT Benny López MD LAB URINE ORDERAB LES Final Result Performing Organization Address [facility] Co de Phone Number [facility] [employer] [employer] [place] [address] * Chloride, urine, random (06/15/2021 2:07 PM CDT) Chloride, ur 28 mmol/L [facility] Comment: Interpretive Data No reference range established. Current interpretive data was last revised 2019. Urine (Urine, Clean Catch) 06/15/2021 2:07 PM CDT 06/15/2021 2:16 PM CDT Benny López MD LAB URINE ORDERAB LES Final Result Performing Organization Address [facility] [place] [address] * Potassium, urine, random (06/15/2021 2:07 PM CDT) Potassium conc, ur 48.5 mmol/L [facility] Comment: Interpretive Data No reference range established. Current interpretive data was last revised 2019. Urine (Urine, Clean Catch) 06/15/2021 2:07 PM CDT 06/15/2021 2:16 PM CDT Benny López MD LAB URINE ORDERAB LES Final Result Performing Organization Address [facility] de Phone Number [facility] [employer] [place] [address] * Sodium, urine, random (06/15/2021 2:07 PM CDT) Sodium, ur 35 mmol/L [facility] Comment: Interpretive Data No reference range established. Current interpretive data was last revised 2019. Urine (Urine, Clean Catch) 06/15/2021 2:07 PM CDT 06/15/2021 2:16 PM CDT us Benny López MD LAB URINE ORDERAB LES Final Result Performing Organization Address [facility] Co de Phone Number [facility] One [facility] [place] [address] * (ABNORMAL) eGFR (06/15/2021 10:47 AM CDT) [facility] eGFR 17(L) 90 - 130 mL/min/1.7 3 m2 [facility] Comment: Interpretive Data Reference Interval Normal [...] interpretive data was last reviewed 2020 Blood 06/15/2021 10:4 7 AM CDT 06/15/2021 11:20 AM CDT us Emely Moss FREIGHT CLERK LAB BLOOD ORDERABLES Tyra l Result Performing Organization Address City/[facility]/ZIP Co de Phone Number [facility] [place] [address] * Type and screen (06/15/2021 10:47 AM CDT) ABO Rh O Positive [facility] Yonathan, indirect Negative [facility] Blood 06/15/2021 10:4 7 AM CDT 06/15/2021 11:16 AM CDT Narrative [facility] - 06/15/2021 12:11 PM CDT Has the patient had Daratumumab or Isatuximab in the past 6 months?->Unknown Emely Moss NP LAB BLOOD BANK TEST ORDER DANI Final Result Performing Organization Address [facility] de Phone Number [facility] [place] [address] * (ABNORMAL) Basic metabolic panel (06/15/2021 10:47 AM CDT) Pathologist [facility] Sodium 136 135 - 145 mmol/L [facility] Potassium, pl 5.2(H) 3.3 - 4.9 mmol/L [facility] Chloride 99 97 - 110 mmol/L [facility] CO2 26 22 - 32 mmol/L [facility] Anion gap 11 2 - 15 mmol/L [facility] BUN 55(H) 8 - 25 mg/dL [facility] Creatinine 3.43(H) 0.80 - 1.30 mg/dL [facility] Glucose 156 70 - 199 mg/dL [facility] [...] Current interpretive data was last revised 2017. Calcium 8.5 8.5 - 10.3 mg/dL [facility] Blood 06/15/2021 10:4 7 AM CDT 06/15/2021 11:20 AM CDT Emely Moss FREIGHT CLERK LAB BLOOD ORDERABLES Tyra l Result Performing Organization Address [facility] de Phone Number [facility] Department [place] [address] * (ABNORMAL) Blood gas, arterial (06/15/2021 10:47 AM CDT) pH, Art 7.39 7.35 - 7.45 [facility] PCO2, Arterial 40 35 - 45 mmHg [facility] PO2, Arterial 96 83 - 108 mmHg [facility] HCO3 Art (Calculated) 24 20 - 30 mmol/L [facility] BE, art -1 mmol/L [facility] Comment: Interpretive Data No Reference Range Established Current Interpretive Data was last revised on 2017 O2 Sat Art (Measured) 97(H) 90 - 95 % [facility] Blood 06/15/2021 10:4 7 AM CDT 06/15/2021 10:51 AM CDT Emely Moss FREIGHT CLERK LAB BLOOD ORDERABLES Tyra l Result Performing Organization Address [facility] de Phone Number [facility] Department [place] [address] * XR Chest 1 View (06/15/2021 8:53 AM CDT) Anatomical Region Laterality Modality Body, Chest N/A Computed Radiogr aphy 06/15/2021 9:59 AM CDT Impressions 06/15/2021 1:37 PM CDT 06/15/2021 taken at 12:22 AM: 1 view of the chest is submitted for interpretation. Comparison is made to 06/12/2021. 2 left thoracostomy tubes. Left subclavian venous approach pacer maker leads in unchanged position. Unchanged loculated left pleural [...] it. Electronically signed by: Ilir Rodríguez M.D. Narrative 06/15/2021 1:37 PM CDT EXAMINATION: 1 view chest radiograph 1 view chest radiograph Procedure Note Ilir Rodríguez MD - 06/15/2021 EXAMINATION: 1 view chest radiograph 1 view chest radiograph IMPRESSION: 06/15/2021 taken at 12:22 AM: 1 view of the chest is submitted for interpretation. Comparison is made to 06/12/2021. 2 left thoracostomy tubes. Left subclavian venous approach pacer maker leads in unchanged position. Unchanged loculated left pleural [...] it. Electronically signed by: Ilir Rodríguez M.D. Benny López MD IMG XR PROCEDURES Final Result * XR Chest 1 View (06/15/2021 12:26 AM CDT) Anatomical Region Laterality Modality Body, Chest N/A Computed Radiogr aphy 06/15/2021 9:59 AM CDT Impressions 06/15/2021 1:37 PM CDT 06/15/2021 taken at 12:22 AM: 1 view of the chest is submitted for interpretation. Comparison is made to 06/12/2021. 2 left thoracostomy tubes. Left subclavian venous approach pacer maker leads in unchanged position. Unchanged loculated left pleural [...] it. Electronically signed by: Ilir Rodríguez M.D. Narrative 06/15/2021 1:37 PM CDT EXAMINATION: 1 view chest radiograph 1 view chest radiograph Procedure Note Ilir Rodríguez MD - 06/15/2021 EXAMINATION: 1 view chest radiograph 1 view chest radiograph IMPRESSION: 06/15/2021 taken at 12:22 AM: 1 view of the chest is submitted for interpretation. Comparison is made to 06/12/2021. 2 left thoracostomy tubes. Left subclavian venous approach pacer maker leads in unchanged position. Unchanged loculated left pleural [...] it. Electronically signed by: Ilir Rodríguez M.D. Benny López MD IMG XR PROCEDURES Final Result * (ABNORMAL) Potassium, whole blood (06/15/2021 12:05 AM CDT) Potassium, bld 5.0(H) 3.3 - 4.9 mmol/L [facility] Comment: Interpretive Data Unable to assess hemolysis. ??Invitro hemolysis causes falsely elevated potassium. Current Interpretive Data was last revised on 2020. Blood 06/15/2021 12:0 5 AM CDT 06/15/2021 12:12 AM CDT us Benny López MD LAB BLOOD ORDERAB LES Final Result Performing Organization Address City/[facility]/ZIP Co de Phone Number [facility] One [facility] [place] [address] * (ABNORMAL) eGFR (06/14/2021 8:33 PM CDT) [facility] eGFR 20(L) 90 - 130 mL/min/1.7 3 m2 [facility] Comment: Interpretive Data Reference Interval Normal [...] interpretive data was last reviewed 2020 Blood 06/14/2021 8:33 PM CDT 06/14/2021 8:48 PM CDT us Benny López MD LAB BLOOD ORDERAB LES Final Result Performing Organization Address City/[facility]/ZIP Co de Phone Number [facility] [place] [address] * Phosphorus (06/14/2021 8:33 PM CDT) [facility] Phosphorus, pl 4.2 2.3 - 4.5 mg/dL [facility] Blood 06/14/2021 8:33 PM CDT 06/14/2021 8:48 PM CDT Benny López MD LAB BLOOD ORDERAB LES Final Result Performing Organization Address [facility]/ZIP Co de Phone Number [facility] [place] [address] * Magnesium (06/14/2021 8:33 PM CDT) [facility] Magnesium 1.8 1.4 - 2.5 mg/dL [facility] Blood 06/14/2021 8:33 PM CDT 06/14/2021 8:48 PM CDT Benny López MD LAB BLOOD ORDERAB LES Final Result Performing Organization Address [facility] [place] [address] * (ABNORMAL) Basic metabolic panel (06/14/2021 8:33 PM CDT) [facility] Sodium 136 135 - 145 mmol/L [facility] Potassium, pl 5.2(H) 3.3 - 4.9 mmol/L [facility] Chloride 103 97 - 110 mmol/L [facility] CO2 25 22 - 32 mmol/L [facility] Anion gap 8 2 - 15 mmol/L [facility] BUN 56(H) 8 - 25 mg/dL [facility] Creatinine 3.02(H) 0.80 - 1.30 mg/dL [facility] Glucose 127 70 - 199 mg/dL [facility] [...] Current interpretive data was last revised 2017. Calcium 8.3(L) 8.5 - 10.3 mg/dL [facility] Blood 06/14/2021 8:33 PM CDT 06/14/2021 8:48 PM CDT us Benny López MD LAB BLOOD ORDERAB LES Final Result [facility] One [facility] [place] [address] * (ABNORMAL) CBC without differential (06/14/2021 8:33 PM CDT) WBC 21.0(H) 3.8 - 9.9 K/cumm [facility] Hgb 7.2(L) 13.0 - 17.5 g/dL [facility] Hct 23.4(L) 38.9 - 50.3 % [facility] Plt 182 150 - 400 K/cumm [facility] MPV 9.9 9.1 - 12.3 fL [facility] RBC 2.53(L) 4.30 - 5.80 M/cumm [facility] MCV 92.5 81.3 - 96.4 fL [facility] MCH 28.5 27.1 - 33.3 pg [facility] MCHC 30.8(L) 32.3 - 35.7 g/dL [facility] RDW CV 14.1 11.1 - 14.9 % [facility] RDW SD 47.8 35.7 - 48.1 fL [facility] NRBC abs 0.00 0.00 - 0.01 K/cumm [facility] Blood 06/14/2021 8:33 PM CDT 06/14/2021 8:50 PM CDT us Benny López MD LAB BLOOD ORDERAB LES Final Result Performing Organization Address [facility] Co de Phone Number [facility] One [facility] [place] [address] * (ABNORMAL) eGFR (06/14/2021 12:22 AM CDT) [facility] eGFR 22(L) 90 - 130 mL/min/1.7 3 m2 [facility] Comment: Interpretive Data Reference Interval Normal [...] interpretive data was last reviewed 2020 Blood 06/14/2021 12:2 2 AM CDT 06/14/2021 12:43 AM CDT us Benny López MD LAB BLOOD ORDERAB LES Final Result [facility] One [facility] [place] [address] * Critical Result Callback Chemistry (06/14/2021 12:22 AM CDT) Date Notified [id number] [facility] Time Notified [facility] TestName vancomycin alexander SOUSA Called/Read Back Dayanna RG [facility] Credentials RN [facility] Called By anamika RG [facility] Blood 06/14/2021 12:2 2 AM CDT 06/14/2021 12:43 AM CDT Benny López MD LAB BLOOD ORDERAB LES Final Result Performing Organization Address City/[facility] Co de Phone Number [facility] [place] [address] * (ABNORMAL) Basic metabolic panel (06/14/2021 12:22 AM CDT) Sodium 136 135 - 145 mmol/L [facility] Potassium, pl 5.1(H) 3.3 - 4.9 mmol/L [facility] Chloride 102 97 - 110 mmol/L [facility] CO2 25 22 - 32 mmol/L [facility] Anion gap 9 2 - 15 mmol/L [facility] BUN 50(H) 8 - 25 mg/dL [facility] Creatinine 2.83(H) 0.80 - 1.30 mg/dL [facility] Glucose 131 70 - 199 mg/dL [facility] [...] Current interpretive data was last revised 2017. Calcium 8.1(L) 8.5 - 10.3 mg/dL [facility] Blood 06/14/2021 12:2 2 AM CDT 06/14/2021 12:43 AM CDT us Benny López MD LAB BLOOD ORDERAB LES Final Result Performing Organization Address City/[facility]/ZIP Co de Phone Number [facility] [place] [address] * (ABNORMAL) CBC without differential (06/14/2021 12:22 AM CDT) WBC 25.8(H) 3.8 - 9.9 K/cumm [facility] Hgb 7.3(L) 13.0 - 17.5 g/dL [facility] Hct 24.0(L) 38.9 - 50.3 % [facility] Plt 222 150 - 400 K/cumm [facility] MPV 9.6 9.1 - 12.3 fL [facility] RBC 2.58(L) 4.30 - 5.80 M/cumm [facility] MCV 93.0 81.3 - 96.4 fL [facility] MCH 28.3 27.1 - 33.3 pg [facility] MCHC 30.4(L) 32.3 - 35.7 g/dL [facility] RDW CV 14.3 11.1 - 14.9 % [facility] RDW SD 48.6(H) 35.7 - 48.1 fL [facility] NRBC abs 0.00 0.00 - 0.01 K/cumm [facility] Blood 06/14/2021 12:2 2 AM CDT 06/14/2021 12:43 AM CDT us Benny López MD LAB BLOOD ORDERAB LES Final Result Performing Organization Address City/[facility]/ZIP Co de Phone Number [facility] [place] [address] * (ABNORMAL) Vancomycin level trough (06/14/2021 12:22 AM CDT) Vancomycin trough 39.2(C) 10.0 - 20.0 mcg/mL [facility] Blood 06/14/2021 12:2 2 AM CDT 06/14/2021 12:43 AM CDT us Benny López MD LAB BLOOD ORDERAB LES Final Result [facility] One [facility] [place] [address] * (ABNORMAL) eGFR (06/13/2021 7:51 AM CDT) Pathologist [facility] eGFR 26(L) 90 - 130 mL/min/1.7 3 m2 [facility] Comment: Interpretive Data Reference Interval Normal [...] interpretive data was last reviewed 2020 Blood 06/13/2021 7:51 AM CDT 06/13/2021 8:03 AM CDT Marco A Ward MD LAB BLOOD ORDERABLES Tyra l Result Performing Organization Address [facility]/ZIP Co de Phone Number [facility] [place] [address] * (ABNORMAL) Basic metabolic panel (06/13/2021 7:51 AM CDT) Pathologist [facility] Sodium 137 135 - 145 mmol/L [facility] Potassium, pl 5.3(H) 3.3 - 4.9 mmol/L [facility] Chloride 100 97 - 110 mmol/L [facility] CO2 27 22 - 32 mmol/L [facility] Anion gap 10 2 - 15 mmol/L [facility] BUN 43(H) 8 - 25 mg/dL [facility] Creatinine 2.45(H) 0.80 - 1.30 mg/dL [facility] Glucose 119 70 - 199 mg/dL [facility] [...] Current interpretive data was last revised 2017. Calcium 8.4(L) 8.5 - 10.3 mg/dL [facility] Blood 06/13/2021 7:51 AM CDT 06/13/2021 8:03 AM CDT Marco A Ward MD LAB BLOOD ORDERABLES Tyra l Result Performing Organization Address [facility] Co de Phone Number [facility] Department [place] [address] * (ABNORMAL) CBC without differential (06/13/2021 7:51 AM CDT) WBC 31.3(H) 3.8 - 9.9 K/cumm [facility] Hgb 8.2(L) 13.0 - 17.5 g/dL [facility] Hct 25.6(L) 38.9 - 50.3 % [facility] Plt 214 150 - 400 K/cumm [facility] MPV 10.8 9.1 - 12.3 fL [facility] RBC 2.79(L) 4.30 - 5.80 M/cumm [facility] MCV 91.8 81.3 - 96.4 fL [facility] MCH 29.4 27.1 - 33.3 pg [facility] MCHC 32.0(L) 32.3 - 35.7 g/dL [facility] RDW CV 14.2 11.1 - 14.9 % [facility] RDW SD 47.9 35.7 - 48.1 fL [facility] NRBC abs 0.00 0.00 - 0.01 K/cumm [facility] Blood 06/13/2021 7:51 AM CDT 06/13/2021 8:03 AM CDT us Marco A Ward MD LAB BLOOD ORDERABLES Tyra l Result Performing Organization Address City/State/[facility] Co de Phone Number [facility] One [facility] [place] [address] * XR Chest 1 View - in ICU (06/12/2021 6:37 PM CDT) Anatomical Region Laterality Modality Body, Chest N/A Computed Radiogr aphy 06/12/2021 9:20 PM CDT Impressions 06/12/2021 9:20 PM CDT Comparison is made to chest radiograph dated 06/10/2021. Left subclavian venous approach pacer leads in unchanged position. Interval placement of 2 left chest tubes. ??Small amount of soft tissue gas in the left lateral chest wall. Mildly decreased loculated left pleural effusion/empyema with adjacent pulmonary opacities representing atelectasis or pneumonia. No right lung consolidation. No pneumothorax. Stable cardiomediastinal silhouette. Electronically signed by: Saniya Tapia M.D. Narrative 06/12/2021 9:20 PM CDT EXAMINATION: 1 view chest radiograph Procedure Note Saniya Tapia MD - 06/12/2021 EXAMINATION: 1 view chest radiograph IMPRESSION: Comparison is made to chest radiograph dated [...] silhouette. Electronically signed by: Saniya Tapia M.D. Benny López MD IMG XR PROCEDURES Final Result * (ABNORMAL) POC Blood Gas and Chemistries, Arterial - (06/12/2021 6:03 PM CDT) pH, Art POC 7.37 7.35 - 7.45 [facility] pCO2, Art POC 41 35 - 45 mmHg [facility] pO2, Art POC 70(L) 83 - 108 mmHg [facility] Na, POC 136 135 - 145 mmol/L [facility] K POC 4.9 3.3 - 4.9 mmol/L [facility] Comment: Interpretive Data Unable to assess hemolysis. ??Invitro hemolysis causes falsely elevated potassium. Current Interpretive Data was last revised on 2020. Cl, POC 104 97 - 110 mmol/L [facility] Ionized Ca, POC 4.64 4.50 - 5.10 mg/dL [facility] Glucose, POC 103 70 - 199 mg/dL [facility] Lactate, POC 0.5(L) 0.7 - 2.2 mmol/L [facility] SO2 (martine) arterial 96(H) 90 - 95 % [facility] Base excess, POC -1.5 mmol/L [facility] HCO3, Art POC 24 20 - 30 mmol/L [facility] Hct, POC 26.0(L) 41.4 - 51.6 % [facility] O2 Sat, Art POC (Calc) 93 % [facility] Total Hb, POC 8.7(L) 13.8 - 17.2 g/dL [facility] Blood 06/12/2021 6:03 PM CDT 06/12/2021 6:03 PM CDT us Benny López MD LAB POCT ORDERABL ES - DEVICE Final Result [facility] One [facility] [place] [address] * (ABNORMAL) POC Blood Gas and Chemistries, Arterial - (06/12/2021 5:22 PM CDT) Pathologist [facility] pH, Art POC 7.31(L) 7.35 - 7.45 [facility] pCO2, Art POC 52(H) 35 - 45 mmHg [facility] pO2, Art POC 98 83 - 108 mmHg [facility] Na, POC 136 135 - 145 mmol/L [facility] K POC 5.1(H) 3.3 - 4.9 mmol/L [facility] Comment: Interpretive Data Unable to assess hemolysis. ??Invitro hemolysis causes falsely elevated potassium. Current Interpretive Data was last revised on 2020. Cl, POC 104 97 - 110 mmol/L [facility] Ionized Ca, POC 4.79 4.50 - 5.10 mg/dL [facility] Glucose, POC 104 70 - 199 mg/dL [facility] Lactate, POC 0.6(L) 0.7 - 2.2 mmol/L [facility] SO2 (martine) arterial 99(H) 90 - 95 % [facility] Base excess, POC -0.8 mmol/L [facility] HCO3, Art POC 26 20 - 30 mmol/L [facility] Hct, POC 27.0(L) 41.4 - 51.6 % [facility] O2 Sat, Art POC (Calc) 97 % [facility] Total Hb, POC 9.0(L) 13.8 - 17.2 g/dL [facility] Blood 06/12/2021 5:22 PM CDT 06/12/2021 5:22 PM CDT us Benny López MD LAB POCT ORDERABL ES - DEVICE Final Result [facility] One [facility] Department [place] [address] * (ABNORMAL) POC Blood Gas and Chemistries, Arterial - (06/12/2021 5:03 PM CDT) pH, Art POC 7.24(L) 7.35 - 7.45 [facility] pCO2, Art POC 64(H) 35 - 45 mmHg [facility] pO2, Art POC 185(H) 83 - 108 mmHg [facility] Na, POC 135 135 - 145 mmol/L [facility] K POC 5.3(H) 3.3 - 4.9 mmol/L [facility] Comment: Interpretive Data Unable to assess hemolysis. ??Invitro hemolysis causes falsely elevated potassium. Current Interpretive Data was last revised on 2020. Cl, POC 105 97 - 110 mmol/L [facility] Ionized Ca, POC 4.85 4.50 - 5.10 mg/dL [facility] Glucose, POC 107 70 - 199 mg/dL [facility] Lactate, POC <0.5(L) 0.7 - 2.2 mmol/L [facility] SO2 (martine) arterial 100(H) 90 - 95 % [facility] Base excess, POC -1.4 mmol/L [facility] HCO3, Art POC 27 20 - 30 mmol/L [facility] Hct, POC 26.0(L) 41.4 - 51.6 % [facility] O2 Sat, Art POC (Calc) 100 % [facility] Total Hb, POC 8.8(L) 13.8 - 17.2 g/dL [facility] Blood 06/12/2021 5:03 PM CDT 06/12/2021 5:03 PM CDT Benny López MD LAB POCT ORDERABL ES - DEVICE Final Result Performing Organization Address [facility] Co de Phone Number [facility]illa [facility] Department [place] [address] * Tissue aerobic and anaerobic culture and gram stain Tissue Pleural (06/12/2021 4:19 PM CDT) Direct Specimen Exam Stain: Rare polymorphonuclear leukocytes seen. No organisms seen. [facility] Report Final Report: No growth [facility] Tissue (Pleural) 06/12/2021 4:19 PM CDT 06/12/2021 6:37 PM CDT Narrative [facility] - 06/16/2021 1:41 PM CDT Left Pleural Specimen collected in the operating room. Testing performed by [facility] ([phone]) Specimens submitted from normally sterile body sites will have all bacterial morphotypes identified. Specimens that contain grossly mixed [place] and/or are from body sites that are not normally sterile will be examined for Staphylococcus aureus, Pseudomonas aeruginosa, beta-hemolytic strep, vancomycin-resistant Enterococcus, Bacteroides, Parabacteroides, Clostridium perfringens and fungus. If any of these are isolated, the organism will be reported. Current interpretive data was last revised on 2019. Benny López MD LAB MICROBIOLOGY - GENERAL ORDERABLES Final Result Performing Organization Address [facility] Co de Phone Number [facility]illa [facility] [place] [address] * (ABNORMAL) POC Blood Gas and Chemistries, Arterial - (06/12/2021 4:02 PM CDT) pH, Art POC 7.24(L) 7.35 - 7.45 [facility] pCO2, Art POC 55(H) 35 - 45 mmHg [facility] pO2, Art POC 90 83 - 108 mmHg [facility] Na, POC 133(L) 135 - 145 mmol/L [facility] K POC 5.0(H) 3.3 - 4.9 mmol/L [facility] Comment: Interpretive Data Unable to assess hemolysis. ??Invitro hemolysis causes falsely elevated potassium. Current Interpretive Data was last revised on 2020. Cl, POC 105 97 - 110 mmol/L [facility] Ionized Ca, POC 4.98 4.50 - 5.10 mg/dL [facility] Glucose, POC 103 70 - 199 mg/dL [facility] Lactate, POC 0.6(L) 0.7 - 2.2 mmol/L [facility] SO2 (martine) arterial 99(H) 90 - 95 % [facility] Base excess, POC -4.5 mmol/L [facility] HCO3, Art POC 24 20 - 30 mmol/L [facility] Hct, POC 26.0(L) 41.4 - 51.6 % [facility] O2 Sat, Art POC (Calc) 95 % [facility] Total Hb, POC 8.5(L) 13.8 - 17.2 g/dL [facility] Blood 06/12/2021 4:02 PM CDT 06/12/2021 4:02 PM CDT us Benny López MD LAB POCT ORDERABL ES - DEVICE Final Result [facility] Department [place] [address] * (ABNORMAL) Aerobic and anaerobic culture and gram stain Pleural fluid (06/12/2021 3:31 PM CDT) Direct Specimen Exam Stain: Abundant polymorphonuclear leukocytes seen. Abundant Gram Positive Cocci [facility] Report Final Report: Few Streptococcus intermedius Organism failed to grow adequately for susceptibility testing. Rare Staphylococcus hominis This isolate is presumed to be resistant to clindamycin based on detection of inducible clindamycin resistance. Clindamycin may still be effective in some patients. (.) [facility] Organism STREPTOCOCCUS INTERMEDIUS [facility] Organism STAPHYLOCOCCUS HOMINIS [facility] Pleural fluid 06/12/2021 3:3 1 PM CDT 06/12/2021 6:34 PM CDT Narrative [facility] - 06/19/2021 2:48 PM CDT Pleural Fluid Fluid specimen received. Specimen collected in the operating room. Testing performed by [facility] ([phone]) Specimens submitted from normally sterile body sites will have all bacterial morphotypes identified. Specimens that contain grossly mixed santiago and/or are from body sites that are not normally sterile will be examined for Staphylococcus aureus, Pseudomonas aeruginosa, beta-hemolytic strep, vancomycin-resistant Enterococcus, Bacteroides, Parabacteroides, Clostridium perfringens and fungus. If any of these are isolated, the organism will be reported. Current interpretive data was last revised on 2019. Organism Antibiotic Method Susceptibility Staphylococcus hominis Doxycycline (PAWEL) INTERPRETATI ON Susceptible Staphylococcus hominis Linezolid (PAWEL) INTERPRETATI ON Susceptible Staphylococcus hominis Trimethoprim with Sulfamethoxazole (PAWEL) INTERPRETATION Susceptible Staphylococcus hominis Clindamycin (PAWEL) INTERPRETATI ON Resistant Staphylococcus hominis Erythromycin (PAWEL) INTERPRETATI ON Resistant Staphylococcus hominis Vancomycin (PAWEL) INTERPRETATI ON Susceptible Staphylococcus hominis Oxacillin (PAWEL) INTERPRETATI ON Resistant Staphylococcus hominis Cefazolin (PAWEL) INTERPRETATI ON Resistant Staphylococcus hominis Ceftriaxone (PAWEL) INTERPRETATI ON Resistant Benny López MD LAB MICROBIOLOGY - GENERAL ORDERABLES Final Result [facility] Department [place] [address] * (ABNORMAL) POC Blood Gas and Chemistries, Arterial - (06/12/2021 2:48 PM CDT) pH, Art POC 7.32(L) 7.35 - 7.45 [facility] pCO2, Art POC 44 35 - 45 mmHg [facility] pO2, Art POC 334(H) 83 - 108 mmHg [facility] Na, POC 134(L) 135 - 145 mmol/L [facility] K POC 4.3 3.3 - 4.9 mmol/L [facility] Comment: Interpretive Data Unable to assess hemolysis. ??Invitro hemolysis causes falsely elevated potassium. Current Interpretive Data was last revised on 2020. Cl, POC 106 97 - 110 mmol/L [facility] Ionized Ca, POC 4.71 4.50 - 5.10 mg/dL [facility] Glucose, POC 87 70 - 199 mg/dL [facility] Lactate, POC <0.5(L) 0.7 - 2.2 mmol/L [facility] SO2 (martine) arterial 100(H) 90 - 95 % [facility] Base excess, POC -3.5 mmol/L [facility] HCO3, Art POC 23 20 - 30 mmol/L [facility] Hct, POC 28.0(L) 41.4 - 51.6 % [facility] O2 Sat, Art POC (Calc) 100 % [facility] Total Hb, POC 9.3(L) 13.8 - 17.2 g/dL [facility] Blood 06/12/2021 2:48 PM CDT 06/12/2021 2:48 PM CDT Benny López MD LAB POCT ORDERABL ES - DEVICE Final Result [facility] Department [place] [address] * Prepare RBC: 2 Units (06/12/2021 1:52 PM CDT) Product code [id number] [facility] Unit Number [id number] [facility] Product Blood Type OPOS [facility] Dispense Status RETURNED [facility] Product code [id number] [facility] Unit Number [id number] [id number] [facility] Product Blood Type OPOS [facility] Dispense Status RETURNED [facility] Blood 06/12/2021 1:52 PM CDT 06/12/2021 2:01 PM CDT Narrative [facility] - 06/13/2021 9:15 AM CDT Are special requirements needed? (all products are leukoreduced)->No Date required:-[id number] LRRBC # of [id number] Reasons:-Intra-op transfusion} us Odette Cook MD BLOOD BANK PRODUCT ORDE ROBBIE Final Result Performing Organization Address City/[facility] [place] [address] * Critical Result Callback Chemistry (06/12/2021 12:13 PM CDT) Date Notified [id number] [facility] Time Notified [facility] TestName Vancomycin Tr [facility] Called/Read Back Sury RG [facility] Credentials RN [facility] Called By HSR [facility] Blood 06/12/2021 12:1 3 PM CDT 06/12/2021 12:30 PM CDT Samra Hurtado FREIGHT CLERK LAB BLOOD ORDERABLES Fi nal Result Performing Organization Address [facility] [place] [address] * (ABNORMAL) Vancomycin level trough (06/12/2021 12:13 PM CDT) Pathologist [facility] Vancomycin trough 44.1(C) 10.0 - 20.0 mcg/mL [facility] Blood 06/12/2021 12:1 3 PM CDT 06/12/2021 12:30 PM CDT Samra Hurtado FREIGHT CLERK LAB BLOOD ORDERABLES Fi nal Result Performing Organization Address City/[facility] Co de Phone Number [facility] [place] [address] * (ABNORMAL) eGFR (06/11/2021 9:34 PM CDT) eGFR 27(L) 90 - 130 mL/min/1.[address] [facility] Comment: Interpretive Data Reference Interval Normal [...] interpretive data was last reviewed 2020 Blood 06/11/2021 9:34 PM CDT 06/11/2021 10:05 PM CDT Samra Hurtado FREIGHT CLERK LAB BLOOD ORDERABLES [facility] Result [facility] [place] [address] * aPTT (06/11/2021 9:34 PM CDT) Pathologist [facility] aPTT 33 27 - 37 sec [facility] Comment: Interpretive Data Therapeutic heparin range: 60.0 - 94.0 seconds. Based on correlation with therapeutic heparin activity range of 0.3-0.7 Units/mL. Current interpretive data was last revised on 2020. Blood 06/11/2021 9:34 PM CDT 06/11/2021 10:04 PM CDT Emely Moss FREIGHT CLERK LAB BLOOD ORDERABLES Tyra l Result Performing Organization Address [facility] de Phone Number [facility] [place] [address] * (ABNORMAL) Protime-INR (06/11/2021 9:34 PM CDT) Pathologist [facility] PT 15.7(H) 9.5 - 13.6 sec [facility] INR 1.4(H) 0.9 - 1.2 [facility] Comment: Interpretive data Oral anticoagulant therapeutic ranges: Venous thromboembolism prophylaxis or treatment: 2.0-3.0 CARDIOLOGY Standard range: 2.0-3.0 High-intensity range: 2.5-3.5 Refer to indication-specific guidelines for appropriate target ranges for prosthetic heart valve replacement. Current interpretive data was last revised on 2019. Blood 06/11/2021 9:34 PM CDT 06/11/2021 10:04 PM CDT Emely Moss FREIGHT CLERK LAB BLOOD ORDERABLES Tyra l Result Performing Organization Address [facility] de Phone Number [facility] [place] [address] * (ABNORMAL) Basic metabolic panel (06/11/2021 9:34 PM CDT) Sodium 135 135 - 145 mmol/L [facility] Potassium, pl 5.1(H) 3.3 - 4.9 mmol/L [facility] Chloride 101 97 - 110 mmol/L [facility] CO2 27 22 - 32 mmol/L [facility] Anion gap 7 2 - 15 mmol/L [facility] BUN 47(H) 8 - 25 mg/dL [facility] Creatinine 2.38(H) 0.80 - 1.30 mg/dL [facility] Glucose 102 70 - 199 mg/dL [facility] [...] Current interpretive data was last revised 2017. Calcium 8.6 8.5 - 10.3 mg/dL [facility] Blood 06/11/2021 9:34 PM CDT 06/11/2021 10:05 PM CDT Samra Hurtado FREIGHT CLERK LAB BLOOD ORDERABLES Fi nal Result [facility] Department [place] [address] * (ABNORMAL) CBC without differential (06/11/2021 9:34 PM CDT) WBC 26.4(H) 3.8 - 9.9 K/cumm [facility] Hgb 9.2(L) 13.0 - 17.5 g/dL [facility] Hct 29.6(L) 38.9 - 50.3 % [facility] Plt 196 150 - 400 K/cumm [facility] MPV 10.8 9.1 - 12.3 fL [facility] RBC 3.24(L) 4.30 - 5.80 M/cumm [facility] MCV 91.4 81.3 - 96.4 fL [facility] MCH 28.4 27.1 - 33.3 pg [facility] MCHC 31.1(L) 32.3 - 35.7 g/dL [facility] RDW CV 14.1 11.1 - 14.9 % [facility] RDW SD 47.2 35.7 - 48.1 fL [facility] NRBC abs 0.00 0.00 - 0.01 K/cumm [facility] Blood 06/11/2021 9:34 PM CDT 06/11/2021 9:54 PM CDT Samra Hurtado NP LAB BLOOD ORDERABLES Fi nal Result [facility] [place] [address] * (ABNORMAL) eGFR (06/11/2021 11:58 AM CDT) eGFR 27(L) 90 - 130 mL/min/1.7 3 m2 [facility] Comment: Interpretive Data Reference Interval Normal [...] interpretive data was last reviewed 2020 Blood 06/11/2021 11:5 8 AM CDT 06/11/2021 12:23 PM CDT us Samra Hurtado NP LAB BLOOD ORDERABLES Fi nal Result Performing Organization Address City/[facility]/ZIP Co de Phone Number [facility] Department [place] [address] * (ABNORMAL) Basic metabolic panel (06/11/2021 11:58 AM CDT) Sodium 130(L) 135 - 145 mmol/L [facility] Potassium, pl 5.2(H) 3.3 - 4.9 mmol/L [facility] Chloride 96(L) 97 - 110 mmol/L [facility] CO2 26 22 - 32 mmol/L [facility] Anion gap 8 2 - 15 mmol/L [facility] BUN 43(H) 8 - 25 mg/dL [facility] Creatinine 2.36(H) 0.80 - 1.30 mg/dL [facility] Glucose 76 70 - 199 mg/dL [facility] [...] Current interpretive data was last revised 2017. Calcium 8.6 8.5 - 10.3 mg/dL [facility] Blood 06/11/2021 11:5 8 AM CDT 06/11/2021 12:23 PM CDT us Samra Hurtado NP LAB BLOOD ORDERABLES Fi nal Result Performing Organization Address City/[facility]/ZIP Co de Phone Number [facility] [place] [address] * Check Sample (06/11/2021 5:22 AM CDT) ABO Rh O Positive [facility] HCLL OTHER 06/11/2021 5:22 AM CDT 06/11/2021 6:37 AM CDT Benny López MD LAB BLOOD ORDERAB LES Final Result Performing Organization Address [facility] Co de Phone Number [facility] [place] [address] * ECG 12 lead (06/11/2021 2:23 AM CDT) Ventricular Rate EKG/Min 83 BPM [facility] Atrial Rate 83 BPM [facility] HI-Interval (MSEC) 154 ms [facility] QRS-Interval (MSEC) 134 ms [facility] QT-Interval (MSEC) 380 ms [facility] QTc 446 ms [facility] P [place] 53 degrees [facility] R [place] 8 degrees [facility] T [place] 82 degrees [facility] Diagnosis Atrial-sensed ventricular-pace d rhythm (see lead 111) Nonspecific ST segment abnormalities consistent with ischemia,metabol ic abnormalities,dr rodriguez,etc. No previous ECGs available Confirmed by KERI SINGH M.D ([id number]) on 06/12/2021 2:28:10 PM [facility] 06/11/2021 2:23 AM CDT 06/12/2021 2:28 PM CDT Benny López MD ECG ORDERABLES F inal Result Performing Organization Address [facility] Co de Phone Number [facility] * (ABNORMAL) Potassium, whole blood (06/11/2021 1:55 AM CDT) Potassium, bld 5.4(H) 3.3 - 4.9 mmol/L [facility] Comment: Interpretive Data Unable to assess hemolysis. ??Invitro hemolysis causes falsely elevated potassium. Current Interpretive Data was last revised on 2020. Blood 06/11/2021 1:55 AM CDT 06/11/2021 2:02 AM CDT Benny López MD LAB BLOOD ORDERAB LES Final Result Performing Organization Address City/[facility]/[place] [address] * Type and screen (06/11/2021 1:55 AM CDT) Yonathan, indirect Negative [facility] ABO Rh O Positive [facility] Blood 06/11/2021 1:55 AM CDT 06/11/2021 2:21 AM CDT Narrative [facility] - 06/11/2021 3:16 AM CDT Has the patient had Daratumumab or Isatuximab in the past 6 months?->Unknown Benny López MD LAB BLOOD BANK TE ST ORDERABLES Final Result Performing Organization Address [facility] Co de Phone Number [facility] [place] [address] * XR Chest 1 View (06/10/2021 11:52 PM CDT) Anatomical Region Laterality Modality Body, Chest N/A Computed Radiogr aphy 06/11/2021 10:2 6 AM CDT Impressions 06/11/2021 10:51 AM CDT The current study is compared with the prior radiograph dated CT dated 06/08/2021. Left subclavian atrioventricular pacemaker is noted, the ventricular lead is near the tricuspid valve. Loculated left effusion/empyema appears similar in configuration to CT. Associated patchy opacities may represent atelectasis or pneumonia. The right lung is clear with no pleural effusion. There is no pneumothorax. Cardiomediastinal silhouette is normal and unchanged. Dictated by: Ranulfo Tariq M.D. The radiology attending physician has personally reviewed this study, and had reviewed and/or edited this written report and agrees with it. Electronically signed by: Saniya Tapia M.D. Narrative 06/11/2021 10:51 AM CDT EXAMINATION: 1 view chest radiograph Procedure Note Saniya Tapia MD - 06/11/2021 EXAMINATION: 1 view chest radiograph IMPRESSION: The current study is compared with the prior radiograph dated CT dated 06/08/2021. Left subclavian atrioventricular pacemaker is noted, the ventricular lead is near the tricuspid valve. Loculated left effusion/empyema appears similar in configuration to CT. Associated patchy opacities may represent atelectasis or pneumonia. The right lung is clear with no pleural effusion. There is no pneumothorax. Cardiomediastinal silhouette is normal and unchanged. Dictated by: Ranulfo Tariq M.D. The radiology attending physician has personally reviewed this study, and had reviewed and/or edited this written report and agrees with it. Electronically signed by: Saniya Tapia M.D. Benny López MD IMG XR PROCEDURES Final Result * (ABNORMAL) eGFR (06/10/2021 11:04 PM CDT) eGFR 27(L) 90 - 130 mL/min/1.7 3 m2 [facility] Comment: Interpretive Data Reference Interval Normal ?>/= [...] interpretive data was last reviewed 2020 Blood 06/10/2021 11:0 4 PM CDT 06/11/2021 12:42 AM CDT us Benny López MD LAB BLOOD ORDERAB LES Final Result [facility] [place] [address] * (ABNORMAL) Differential, auto (06/10/2021 11:04 PM CDT) Neutrophil abs 26.8(H) 1.7 - 6.5 K/cumm [facility] Imm gran abs 2.5(H) 0.0 - 0.1 K/cumm [facility] Lymphocyte abs 0.8 0.8 - 3.3 K/cumm [facility] Monocyte abs 1.8(H) 0.2 - 0.8 K/cumm [facility] Eosinophil abs 0.1 0.0 - 0.5 K/cumm [facility] Basophil abs 0.1 0.0 - 0.1 K/cumm [facility] Neutrophil pct 83.6 % [facility] Comment: Interpretive Data Percent cell count reference ranges are not reported, since discordance with absolute values may lead to misinterpretation of CBC data. Current Interpretive Data was last revised on 2017. Imm gran pct 7.7 % [facility] Comment: Interpretive Data Percent cell count reference ranges are not reported, since discordance with absolute values may lead to misinterpretation of CBC data. Current Interpretive Data was last revised on 2017. Lymphocyte pct 2.4 % [facility] Comment: Interpretive Data Percent cell count reference ranges are not reported, since discordance with absolute values may lead to misinterpretation of CBC data. Current Interpretive Data was last revised on 2017. Monocyte pct 5.7 % [facility] Comment: Interpretive Data Percent cell count reference ranges are not reported, since discordance with absolute values may lead to misinterpretation of CBC data. Current Interpretive Data was last revised on 2017. Eosinophil pct 0.4 % [facility] Comment: Interpretive Data Percent cell count reference ranges are not reported, since discordance with absolute values may lead to misinterpretation of CBC data. Current Interpretive Data was last revised on 2017. Basophil pct 0.2 % [facility] Comment: Interpretive Data Percent cell count reference ranges are not reported, since discordance with absolute values may lead to misinterpretation of CBC data. Current Interpretive Data was last revised on 2017. Blood 06/10/2021 11:0 4 PM CDT 06/11/2021 12:42 AM CDT Benny López MD LAB BLOOD ORDERAB LES Final Result Performing Organization Address City/[facility]/ZIP Co de Phone Number [facility] [place] [address] * Phosphorus (06/10/2021 11:04 PM CDT) Phosphorus, pl 3.0 2.3 - 4.5 mg/dL [facility] Blood 06/10/2021 11:0 4 PM CDT 06/11/2021 12:42 AM CDT Benny López MD LAB BLOOD ORDERAB LES Final Result [facility] [place] [address] * Magnesium (06/10/2021 11:04 PM CDT) Magnesium 1.9 1.4 - 2.5 mg/dL [facility] Blood 06/10/2021 11:0 4 PM CDT 06/11/2021 12:42 AM CDT us Benny López MD LAB BLOOD ORDERAB LES Final Result [facility] [place] [address] * (ABNORMAL) Comprehensive metabolic panel (06/10/2021 11:04 PM CDT) Sodium 130(L) 135 - 145 mmol/L [facility] Potassium, pl 5.6(H) 3.3 - 4.9 mmol/L [facility] Chloride 96(L) 97 - 110 mmol/L [facility] CO2 26 22 - 32 mmol/L [facility] Anion gap 8 2 - 15 mmol/L [facility] BUN 42(H) 8 - 25 mg/dL [facility] Creatinine 2.35(H) 0.80 - 1.30 mg/dL [facility] Glucose 92 70 - 199 mg/dL [facility] [...] Current interpretive data was last revised 2017. Calcium 9.1 8.5 - 10.3 mg/dL [facility] Bilirubin, total 0.3 0.1 - 1.2 mg/dL [facility] Protein, pl 6.9 6.5 - 8.5 g/dL [facility] Albumin 2.8(L) 3.5 - 5.0 g/dL [facility] Alk phos 121 40 - 130 Units/L [facility] ALT 24 7 - 55 Units/L [facility] AST 26 10 - 50 Units/L [facility] Blood 06/10/2021 11:0 4 PM CDT 06/11/2021 12:42 AM CDT us Benny López MD LAB BLOOD ORDERAB LES Final Result [facility] [place] [address] * (ABNORMAL) CBC with auto differential (06/10/2021 11:04 PM CDT) Pathologist [facility] WBC 32.0(H) 3.8 - 9.9 K/cumm [facility] Hgb 10.5(L) 13.0 - 17.5 g/dL [facility] Hct 32.8(L) 38.9 - 50.3 % [facility] Plt 186 150 - 400 K/cumm [facility] MPV 11.4 9.1 - 12.3 fL [facility] RBC 3.59(L) 4.30 - 5.80 M/cumm [facility] MCV 91.4 81.3 - 96.4 fL [facility] MCH 29.2 27.1 - 33.3 pg [facility] MCHC 32.0(L) 32.3 - 35.7 g/dL [facility] RDW CV 13.9 11.1 - 14.9 % [facility] RDW SD 46.8 35.7 - 48.1 fL [facility] NRBC abs 0.00 0.00 - 0.01 K/cumm [facility] Blood 06/10/2021 11:0 4 PM CDT 06/11/2021 12:42 AM CDT us Benny López MD LAB BLOOD ORDERAB LES Final Result [facility] [place] [address] * US Outside Reference (06/10/2021 10:52 PM CDT) Impressions [id number] - 06/10/2021 10:52 PM CDT These images are for Reference purposes only and have not been reviewed by [facility]iology. ??There will be no report generated by a [facility] Radiologist. Narrative [email or web address] - 06/10/2021 10:52 PM CDT EXAMINATION: ??Images For Reference Purposes Only Valarie Edwards MD IMG US PROCEDURES Final R esult Performing Organization Address City/[facility] Co de Phone Number [email or web address] * XR Outside Reference (06/10/2021 10:51 PM CDT) Impressions [facility] - 06/10/2021 10:51 PM CDT These images are for Reference purposes only and have not been reviewed by [facility]. ??There will be no report generated by a [facility] Radiologist. Narrative [facility] - 06/10/2021 10:51 PM CDT EXAMINATION: ??Images For Reference Purposes Only Valarie Edwards MD IMG XR PROCEDURES Final R esult Performing Organization Address [facility] de Phone Number [email or web address] * XR Outside Reference (06/10/2021 10:50 PM CDT) Impressions [facility] - 06/10/2021 10:50 PM CDT These images are for Reference purposes only and have not been reviewed by [facility]. ??There will be no report generated by a [facility] Radiologist. Narrative [facility] - 06/10/2021 10:50 PM CDT EXAMINATION: ??Images For Reference Purposes Only Valarie Edwards MD IMG XR PROCEDURES Final R esult Performing Organization Address [facility] Co de Phone Number [facility] * NM Outside Reference (06/10/2021 10:49 PM CDT) Impressions [facility] - 06/10/2021 10:49 PM CDT These images are for Reference purposes only and have not been reviewed by [facility]. ??There will be no report generated by a [facility] Radiologist. Narrative [facility] - 06/10/2021 10:49 PM CDT EXAMINATION: ??Images For Reference Purposes Only us Valarie Edwards MD IMG NM PROCEDURES Final R esult Performing Organization Address [facility] de Phone Number [facility] * CT Body Outside Reference (06/10/2021 10:48 PM CDT) Impressions [facility] - 06/10/2021 10:48 PM CDT These images are for Reference purposes only and have not been reviewed by [facility]. ??There will be no report generated by a [facility] Radiologist. Narrative [facility] - 06/10/2021 10:48 PM CDT EXAMINATION: ??Images For Reference Purposes Only us Valarie Edwards MD IMG CT PROCEDURES Final R esult Performing Organization Address [facility] de Phone Number [facility] * US Outside Reference (06/10/2021 10:47 PM CDT) Impressions [facility] - 06/10/2021 10:47 PM CDT These images are for Reference purposes only and have not been reviewed by [facility]. ??There will be no report generated by a [facility] Radiologist. Narrative [facility] - 06/10/2021 10:47 PM CDT EXAMINATION: ??Images For Reference Purposes Only us Valarie Edwards MD IMG US PROCEDURES Final R esult Performing Organization Address [facility] Co de Phone Number [facility] * CT Body Outside Consult (06/10/2021 10:44 PM CDT) Anatomical Region Laterality Modality Body N/A Computed Tomogra phy 06/11/2021 10:0 8 AM CDT Impressions 06/11/2021 10:08 AM CDT 1. Moderate left-sided pleural effusion in keeping with known empyema. Left lower lobe opacity could represent atelectasis or pneumonia. Lack of intravenous contrast limits evaluation for pleural and lung enhancement. 2. Aortic arch penetrating atherosclerotic ulcer. The aorta at this level measures approximately 3.3 cm in diameter, inclusive of the ulcer. The findings, conclusions and recommendations within this report do not replace the initial findings, conclusions ??and recommendations made at the facility where the study was performed based upon the imaging and clinical condition at that time. ??Comparison with the prior report and clinical history is necessary. ??The provided images may or may not represent the [employer] source data set and thus may contain changes that may lower the accuracy of this second-opinion interpretation. Electronically signed by: Bartolome Kathleen M.D. , PHD Narrative 06/11/2021 10:08 AM CDT EXAMINATION: RADIOLOGY CONSULTATION ON OUTSIDE IMAGING STUDY STUDY INITIALLY PERFORMED: 06/08/2021 at [facility]. TYPE OF STUDY: Multiple CT images [...] 06/04/2021 FINDINGS: There is upper lung predominant emphysema. There is a moderate size left-sided pleural [...] There are coronary atherosclerotic changes. There is a left chest wall pacer with the leads terminating in the right atrium and proximal right ventricle. There are atherosclerotic changes of the thoracic aorta. There is outpouching of the inferior aspect of the aortic arch, compatible with a penetrating atherosclerotic ulcer, with the total aortic diameter measuring approximately 3.3 cm. Atherosclerotic ulcer. There is mediastinal adenopathy. There is fat stranding of the left aspect of the pericardial fat. Visualized portions of the thyroid appear normal. There is a small hiatal hernia. There is a partially visualized left adrenal nodule measures approximately approximately 20 Hounsfield units. No suspicious osseous lesion. Procedure Note Bartolome Kathleen MD PhD - 06/11/2021 EXAMINATION: RADIOLOGY CONSULTATION ON OUTSIDE IMAGING STUDY STUDY INITIALLY PERFORMED: 06/08/2021 at [facility]. TYPE OF STUDY: Multiple CT images [...] 06/04/2021 FINDINGS: There is upper lung predominant emphysema. There is a moderate size left-sided pleural [...] There are coronary atherosclerotic changes. There is a left chest wall pacer with the leads terminating in the right atrium and proximal right ventricle. There are atherosclerotic changes of the thoracic aorta. There is outpouching of the inferior aspect of the aortic arch, compatible with a penetrating atherosclerotic ulcer, with the total aortic diameter measuring approximately 3.3 cm. Atherosclerotic ulcer. There is mediastinal adenopathy. There is fat stranding of the left aspect of the pericardial fat. Visualized portions of the thyroid appear normal. There is a small hiatal hernia. There is a partially visualized left adrenal nodule measures approximately approximately 20 Hounsfield units. No suspicious osseous lesion. IMPRESSION: 1. Moderate left-sided pleural effusion in keeping with known empyema. Left lower lobe opacity could represent atelectasis or pneumonia. Lack of intravenous contrast limits evaluation for pleural and lung enhancement. 2. Aortic arch penetrating [...] images may or may not represent the level[employer] source data set and thus may contain changes that may lower the accuracy of this second-opinion interpretation. Electronically signed by: Bartolome Kathleen M.D. , PHD Valarie Edwards MD IMG CT PROCEDURES Final R esult documented in this encounter Visit Diagnoses Diagnosis Empyema (CMS/HCC) (HCC)- Primary Diagnosis unknown Empyema lung (CMS/HCC) (HCC) Empyema without mention of fistula Empyema (CMS/HCC) (HCC) PVD (peripheral vascular disease) (HCC) Unspecified peripheral vascular disease COPD (chronic obstructive pulmonary disease) (HCC) Chronic airway obstruction, not elsewhere classified CKD (chronic kidney disease) stage 3, GFR 30-59 ml/min (HCC) Chronic kidney disease, Stage III (moderate) CKD (chronic kidney disease) stage 4, GFR 15-29 ml/min (CMS/HCC) (HCC) Chronic kidney disease, Stage IV (severe) Hyperkalemia Hyperpotassemia Cardiac pacemaker in situ Hypertension Unspecified essential hypertension Anemia Unspecified anemia ALFREDO (acute kidney injury) (HCC) documented in this encounter Administered Medications Inactive Administered Medications - up to 3 most recent administrations Medication Order MAR Action Action Date Dose Rate Site acetaminophen (TYLENOL) tablet 1,000 mg 1,000 mg, oral, Every 6 hours scheduled, First dose (after last modification) on Tue06/16/21 at 1200 Given 06/23/2021 11:28 AM CDT 1,000 mg Given 06/22/2021 9:36 PM CDT 1,000 mg Given 06/22/2021 3:49 PM CDT 1,000 mg acetaminophen (TYLENOL) tablet 650 mg 650 mg, oral, Every 4 hours PRN, 1st line for pain, fever, Starting on Tue06/10/21 at 2101, Administer if patient can swallow tablets., Indications: Fever, PainIndications:Fever,Pain Given 06/11/2021 3:43 PM CDT 650 mg Given 06/11/2021 8:07 AM CDT 650 mg Given 06/10/2021 11:21 PM CDT 650 mg acetaminophen (TYLENOL) tablet 650 mg 650 mg, oral, Every 6 hours PRN, 1st line for pain, Starting on 06/15/21 at 0114 Given 06/16/2021 4:41 AM CDT 650 m g Given 06/15/2021 6:06 AM CDT 650 mg albuterol 2.5 mg/0.5 mL nebulizer solution 2.5 mg 2.5 mg, nebulization, Once as needed, wheezing, Starting on Tue06/12/21 at 1729, For 1 dose, Phase I, Notify Anesthesiologist., Indications: Bronchospastic Pulmonary DiseaseIndications:Bronchospastic Pulmonary Disease Given 06/12/2021 5:36 PM CDT 2.5 mg albuterol 2.5 mg/0.5 mL nebulizer solution 2.5 mg 2.5 mg, nebulization, 3 times daily PRN (correspondence transcriber), wheezing, Starting on Tue06/14/21 at 1925 Given 06/15/2021 10:52 PM CDT 2.5 mg Given 06/14/2021 10:11 PM CDT 2.5 mg albuterol HFA (PROVENTIL HFA,VENTOLIN HFA,PROAIR HFA) 90 mcg/actuation inhaler 2 puff 2 puff, inhalation, Every 4 hours while awake (correspondence transcriber), First dose (after last modification) on Tue06/10/21 at 2200 Given 06/10/2021 9:46 PM CDT 2 puff s amLODIPine (NORVASC) tablet 10 mg 10 mg, oral, Daily, First dose on Chiara 06/11/21 at 0900 Given 06/11/2021 8:07 AM CDT 10 mg amLODIPine (NORVASC) tablet 10 mg 10 mg, oral, Daily, First dose (after last reorder) on Tue06/14/21 at 0900, On hold since Tue06/15/2021 at 1027 until manually unheld Given 06/15/2021 9:00 AM CDT 10 mg Given 06/14/2021 9:57 AM CDT 10 mg atorvastatin (LIPITOR) tablet 40 mg 40 mg, oral, Daily, First dose on Chiara 06/11/21 at 0900 Given 06/11/2021 8:07 AM CDT 40 mg atorvastatin (LIPITOR) tablet 40 mg 40 mg, oral, Daily, First dose (after last reorder) on Tue06/14/21 at 0900 Given 06/23/2021 11:28 AM CDT 40 mg Given 06/22/2021 10:18 AM CDT 40 mg Given 06/21/2021 9:35 AM CDT 40 mg bisacodyl EC (DULCOLAX EC) tablet 10 mg 10 mg, oral, Daily PRN, constipation, If no results 24 hours after polyethylene glycol (MIRALAX). May give bisacodyl supp if not tolerating PO), Starting on Tue06/10/21 at 2101, Do not crush, chew, cut, dissolve, open or otherwise manipulate tablet/capsule., Indications: constipationIndications:constipation calcium carbonate (TUMS) chewable tablet 500 mg 500 mg (200 mg of elemental calcium), oral, Daily PRN, indigestion, Starting on 06/13/21 at 1735 Given 06/13/2021 9:17 PM CDT 500 mg Given 06/13/2021 6:26 PM CDT 500 mg carvediloL (COREG) tablet 12.5 mg 12.5 mg, oral, 2 times daily, First dose (after last modification) on 06/22/21 at 2100, Hold sys BP <100 Given 06/23/2021 8:16 AM CDT 12.5 mg Given 06/22/2021 9:37 PM CDT 12.5 mg carvediloL (COREG) tablet 37.5 mg 37.5 mg, oral, 2 times daily, First dose on Tue06/10/21 at 2300 Given 06/12/2021 9:23 AM CDT 37.5 mg Given 06/11/2021 9:37 PM CDT 37.5 mg Given 06/11/2021 8:07 AM CDT 37.5 mg carvediloL (COREG) tablet 37.5 mg 37.5 mg, oral, 2 times daily, First dose (after last reorder) on 06/13/21 at 2145 Given 06/15/2021 9:00 AM CDT 37.5 mg Given 06/14/2021 8:47 PM CDT 37.5 mg Given 06/14/2021 9:57 AM CDT 37.5 mg carvediloL (COREG) tablet 6.25 mg 6.25 mg, oral, 2 times daily, First dose (after last modification) on Tue06/15/21 at 2100, Hold sys BP <100 Given 06/22/2021 8:42 AM CDT 6.25 mg Given 06/21/2021 10:10 PM CDT 6.25 mg Given 06/21/2021 9:37 AM CDT 6.25 mg cefepime (MAXIPIME) 2,000 mg/20 mL in sterile water (premix) 2,000 mg 2,000 mg, intravenous, at 40 mL/hr, Administer over 30 Minutes, Every 8 hours scheduled, First dose on Tue06/10/21 at 2330, Indications: empyemaIndications:empyema New Bag 06/13/2021 8:49 AM CDT 2,000 mg 40 m L/hr New Bag 06/13/2021 12:24 AM CDT 2,000 mg 40 mL/hr New Bag 06/12/2021 9:23 AM CDT 2,000 mg 40 mL/hr cefepime (MAXIPIME) 2,000 mg/20 mL in sterile water (premix) 2,000 mg 2,000 mg, intravenous, at 40 mL/hr, Administer over 30 Minutes, Every 24 hours scheduled, First dose (after last modification) on Tue06/14/21 at 0900, Indications: empyemaIndications:empyema New Bag 06/15/2021 9:05 AM CDT 2,000 mg 40 m L/hr New Bag 06/14/2021 10:06 AM CDT 2,000 mg 40 mL/hr cefTRIAXone (ROCEPHIN) 2,000 mg/20 mL in sterile water (premix) 2,000 mg 2,000 mg, intravenous, at 1,200 mL/hr, Administer over 1 Minutes, Every 24 hours scheduled, First dose on Tue06/15/21 at 1430, Indications: empyemaIndications:empyema Given 06/23/2021 9:03 AM CDT 2,000 mg 1200 mL/hr Given 06/22/2021 8:41 AM CDT 2,000 mg 1200 mL/hr Given 06/21/2021 9:56 AM CDT 2,000 mg 1200 mL/hr cloNIDine (CATAPRES) tablet 0.1 mg 0.1 mg, oral, 2 times daily, First dose on Tue06/10/21 at 2300 Given 06/12/2021 9:23 AM CDT 0.1 mg Given 06/11/2021 9:37 PM CDT 0.1 mg Given 06/11/2021 8:07 AM CDT 0.1 mg cloNIDine (CATAPRES) tablet 0.1 mg 0.1 mg, oral, 2 times daily, First dose (after last reorder) on Tue06/13/21 at 2145, On hold since Tue06/15/2021 at 1027 until manually unheld Given 06/15/2021 9:00 AM CDT 0.1 mg Given 06/14/2021 8:48 PM CDT 0.1 mg Given 06/14/2021 9:57 AM CDT 0.1 mg doxepin (SINEquan) capsule 25 mg 25 mg, oral, Nightly, First dose on Tue06/10/21 at 2300 Given 06/11/2021 9:37 PM CDT 25 mg Given 06/11/2021 12:34 AM CDT 25 mg doxepin (SINEquan) capsule 25 mg 25 mg, oral, Nightly, First dose (after last reorder) on Tue06/13/21 at 2145 Given 06/22/2021 9:37 PM CDT 25 mg Given 06/21/2021 10:10 PM CDT 25 mg Given 06/20/2021 9:57 PM CDT 25 mg doxycycline (VIBRAMYCIN) tablet/capsule 100 mg 100 mg, oral, 2 times daily (for quinolones,etc), First dose on Tue06/22/21 at 1800, Give 2 hrs before or 2 hrs after MVI, antacids, or other products containing sucralfate, magnesium, aluminum, iron, or zinc. May be taken without regard to meals., Indications: empyemaIndications:empyema Given 06/23/2021 6:56 AM CDT 100 mg enoxaparin (LOVENOX) syringe 30 mg 30 mg, subcutaneous, Daily (for enoxaparin), First dose on Tue06/12/21 at 2100, Indications: Deep Vein Thrombosis PreventionIndications:Deep Vein Thrombosis Prevention Given 06/22/2021 9:37 PM CDT 30 mg Left Lower Abdomen Given 06/21/2021 10:09 PM CDT 30 mg L eft Lower Abdomen Given 06/20/2021 9:58 PM CDT 30 mg Ri ght Lower Abdomen furosemide (LASIX) 10 mg/mL injection 40 mg 40 mg, intravenous, Once, On Tue06/12/21 at 1800, For 1 dose, Phase I, For IV push: administer doses < 160 mg at a rate of 20 -40 mg/min. Doses >/= 160 mg should be administered no faster than 4 mg/min. Room temperature only Given 06/12/2021 5:35 PM CDT 40 mg furosemide (LASIX) 10 mg/mL injection 40 mg 40 mg, intravenous, Once, On Tue06/16/21 at 0345, For 1 dose, For IV push: administer doses < 160 mg at a rate of 20 -40 mg/min. Doses >/= 160 mg should be administered no faster than 4 mg/min. Room temperature only Given 06/16/2021 3:21 AM CDT 40 mg gabapentin (NEURONTIN) capsule 300 mg 300 mg, oral, Daily PRN, pain, Starting on Tue06/11/21 at 0044, Do not crush, break, or open. Given 06/11/2021 9:37 PM CDT 300 mg gabapentin (NEURONTIN) capsule 300 mg 300 mg, oral, 3 times daily PRN, pain, Starting on Tue06/12/21 at 0515, Do not crush, break, or open. Given 06/12/2021 11:11 AM CDT 300 mg Given 06/12/2021 5:12 AM CDT 300 mg guaiFENesin (ROBITUSSIN) 20 mg/mL oral liquid 200 mg 200 mg, oral, 4 times daily, First dose on Tue06/17/21 at 1330, For 2 days Given 06/18/2021 9:52 PM CDT 200 mg Given 06/18/2021 4:02 PM CDT 200 mg Given 06/18/2021 11:44 AM CDT 200 mg heparin 100 unit/mL injection Code/trauma/sedation medication, Starting on Tue06/19/21 at 1706, Indications: Maintain Patency of Indwelling Vascular CatheterIndications:Maintain Patency of Indwelling Vascular Catheter Given 06/19/2021 5:06 PM CDT 5 mL hydrocortisone 2.5 % cream topical, 2 times daily, First dose on 06/21/21 at 2100, Apply to affected area: rash Given 06/23/2021 9:03 AM C DT Given 06/22/2021 10:18 AM CDT Given 06/21/2021 9:00 PM CDT HYDROmorphone (DILAUDID) injection 0.2 mg 0.2 mg, intravenous, Administer over 2 Minutes, Every 10 min PRN, 1st line for pain, Starting on Tue06/12/21 at 1712, Phase I, Switch to 2nd line analgesic order if pain is uncontrolled or increasing after 2 doses. Notify Anesthesiologist if total PACU dose reaches 2 mg and pain score 5/10 or more., Indications: PainIndications:Pain Given 06/12/2021 6:20 PM CDT 0.2 mg Given 06/12/2021 6:09 PM CDT 0.2 mg HYDROmorphone (DILAUDID) injection 0.4 mg 0.4 mg, intravenous, Administer over 2 Minutes, Every 10 min PRN, 2nd line for pain, Starting on Tue06/12/21 at 1712, Phase I, May administer 10 mintes after 2nd dose of 1st line analgesic agent for uncontrolled or increasing pain. Revert to 1st line dose if POSS of 3. Notify Anesthesiologist if total PACU dose reaches 2 mg and pain score 5/10 or more., Indications: PainIndications:Pain Given 06/12/2021 6:34 PM CDT 0.4 mg HYDROmorphone in 0.9% sodium chloride (DILAUDID) 20 mg/100 mL (0.2 mg/mL) cassette (premix) Continuous: none, [employer] dose: 0.2 mg, [employer] lockout: 10 Minutes, 1 hour limit: 1.2 mg, intravenous, Continuous, Starting on Tue06/12/21 at 1745, Until Tue06/14/21 at 0854, 100 mL, Indications: Pain, RoutineIndications:Pain New Syringe/Cartridge 06/12/2021 5:56 PM CDT 20 mg ipratropium (ATROVENT) 0.02 % nebulizer solution 0.5 mg 0.5 mg, nebulization, Once as needed, wheezing, Starting on Tue06/12/21 at 1729, For 1 dose, Phase I, Notify Anesthesiologist., Indications: Bronchospastic Pulmonary DiseaseIndications:Bronchospas tic Pulmonary Disease Given 06/12/2021 5:36 PM CDT 0.5 mg lidocaine (LIDODERM) 5 % patch 2 patch 2 patch, transdermal, Administer over 12 Hours, Daily, First dose (after last modification) on Tue06/15/21 at 0145, Do not cover the holes on the top side of the patch., Apply to affected area: back Medication Applied 06/23/2021 8:16 AM CDT 2 patches Back Medication Applied 06/22/2021 8:43 AM CDT 2 patches Chest Medication Applied 06/21/2021 9:54 AM CDT 2 patches Back lidocaine PF (XYLOCAINE) 10 mg/mL (1 %) preservative free injection Code/trauma/sedation medication, Starting on Tue06/19/21 at 1655, Intra-Procedure (IR), Indications: Administration of Local AnesthesiaIndications:Administratio n of Local Anesthesia Given 06/19/2021 4:55 PM CDT 10 mL linezolid (ZYVOX) 600 mg/300 mL in dextrose 5% (premix) 600 mg 600 mg, intravenous, at 150 mL/hr, Administer over 2 Hours, Every 12 hours scheduled, First dose on Tue06/14/21 at 0930, Indications: empyemaIndications:empyema New Bag 06/15/2021 9:05 AM CDT 600 mg 150 mL/hr New Bag 06/14/2021 8:49 PM CDT 600 mg 150 mL/hr New Bag 06/14/2021 11:37 AM CDT 600 mg 150 mL/hr linezolid (ZYVOX) tablet 600 mg 600 mg, oral, 2 times daily, First dose on Tue06/15/21 at 1430, Indications: empyemaIndications:empyema Given 06/22/2021 8:42 AM CDT 600 mg Given 06/21/2021 10:10 PM CDT 600 mg Given 06/21/2021 9:35 AM CDT 600 mg magnesium sulfate 2 g/50 mL in water (premix) 2 g 2 g, intravenous, Administer over 60 Minutes, Once, On Tue06/19/21 at 0900, For 1 dose New Bag 06/19/2021 9:30 AM CDT 2 g magnesium sulfate 4 g/100 mL in water (premix) 4 g 4 g, intravenous, Administer over 90 Minutes, Once, On Tue06/22/21 at 0315, For 1 dose New Bag 06/22/2021 5:57 AM CDT 4 g metroNIDAZOLE (FLAGYL) tablet 500 mg 500 mg, oral, 3 times daily, First dose on Tue06/15/21 at 1600, Indications: empyemaIndications:empyema Given 06/23/2021 8:16 AM CDT 500 mg Given 06/22/2021 9:37 PM CDT 500 mg Given 06/22/2021 3:49 PM CDT 500 mg ondansetron ODT (ZOFRAN-ODT) disintegrating tablet 4 mg 4 mg, oral, Every 6 hours PRN, nausea, vomiting, Starting on Tue06/10/21 at 2101, Indications: Nausea and VomitingIndications:Nausea and Vomiting Given 06/21/2021 6:22 PM CDT 4 mg Given 06/19/2021 9:38 AM CDT 4 mg Given 06/18/2021 9:57 AM CDT 4 mg oxyCODONE (ROXICODONE) tablet 5 mg 5 mg, oral, Every 4 hours PRN, 1st line for pain, Starting on 06/14/21 at 0856, May repeat in 1 hour if pain is uncontrolled or increasing. Max 2 doses within 1 dosing interval., Indications: PainIndications:Pain Given 06/14/2021 5:40 PM CDT 5 mg Given 06/14/2021 3:38 PM CDT 5 mg Given 06/14/2021 9:58 AM CDT 5 mg oxyCODONE (ROXICODONE) tablet 5 mg 5 mg, oral, Every 4 hours PRN, 2nd line for pain, Starting on Tue06/15/21 at 0114, May repeat in 1 hour if pain is uncontrolled or increasing. Max 2 doses within 1 dosing interval., Indications: PainIndications:Pain Given 06/20/2021 6:05 AM CDT 5 mg Given 06/19/2021 10:27 PM CDT 5 mg Given 06/19/2021 6:00 PM CDT 5 mg oxyCODONE (ROXICODONE) tablet 5 mg 5 mg, oral, Every 4 hours PRN, 1st line for pain, Starting on 06/21/21 at 0133, Indications: PainIndications:Pain Given 06/23/2021 6:56 AM CDT 5 mg Given 06/23/2021 2:20 AM CDT 5 mg Given 06/22/2021 9:37 PM CDT [address] (PROTONIX) extended release tablet 40 mg 40 mg, oral, Daily, First dose on Tue06/11/21 at 0900, Do not crush, chew, cut, dissolve, open or otherwise manipulate tablet/capsule., Indications: Treatment of Non-Bleeding Gastric DisorderIndications:Treatment of Non-Bleeding Gastric Disorder Given 06/23/2021 8:16 AM CDT 40 mg Given 06/22/2021 8:42 AM CDT 40 mg Given 06/21/2021 9:35 AM CDT 40 mg polyethylene glycol (MIRALAX) packet 17 g 17 g, oral, Daily PRN, constipation, Starting on Tue06/14/21 at 0944, Indications: constipationIndications:constipation Given 06/14/2021 9:57 AM CDT 17 g polyethylene glycol (MIRALAX) packet 17 g 17 g, oral, Daily, First dose (after last modification) on Tue06/17/21 at 0900, Indications: constipationIndications:constipation Given 06/20/2021 9:23 AM CDT 17 g Given 06/17/2021 9:54 AM CDT 17 g potassium chloride (KLOR-CON) packet 20 mEq 20 mEq, feeding tube, Once, On Tue06/22/21 at 0315, For 1 dose, Dissolve one packet in at least 120 mL of cold water or other beverage prior to administration. Given 06/22/2021 6:35 AM CDT 20 mEq potassium chloride ER (KLOR-CON) extended release tablet 20 mEq 20 mEq, oral, Once, On Tue06/19/21 at 0900, For 1 dose, Do not crush, chew, cut, dissolve, open or otherwise manipulate tablet/capsule. Given 06/19/2021 9:30 AM CDT 20 mEq potassium chloride ER (KLOR-CON) extended release tablet 40 mEq 40 mEq, oral, Every 4 hours, First dose on Tue06/20/21 at 0630, For 2 doses, Total dose = 80 mEq Do not crush, chew, cut, dissolve, open or otherwise manipulate tablet/capsule. Given 06/20/2021 11:13 AM CDT 40 mEq Given 06/20/2021 6:05 AM CDT 40 mEq ramelteon (ROZEREM) tablet 8 mg 8 mg, oral, Nightly PRN, sleep, Starting on 06/13/21 at 2059, Indications: Sleep-Onset InsomniaIndications:Sleep-Onset Insomnia Given 06/22/2021 9:37 PM CDT 8 m g Given 06/21/2021 12:05 AM CDT 8 mg Given 06/13/2021 9:10 PM CDT 8 mg senna 1.76 mg/mL syrup 8.8 mg 8.8 mg, oral, 2 times daily PRN, constipation, Starting on 06/14/21 at 0944 Given 06/14/2021 9:57 AM CDT 8.8 mg senna-docusate (PERICOLACE) 8.6-50 mg per tablet 1 tablet 1 tablet, oral, 2 times daily, First dose on Tue06/16/21 at 2100 Given 06/17/2021 9:53 AM CDT 1 tablet Given 06/16/2021 10:01 PM CDT 1 tablet sodium chloride 0.9% flush 0.5-20 mL 0.5-20 mL, intra-catheter, Every 8 hours scheduled, First dose on Tue06/10/21 at 2200, Flush volume based on line type and size. Given 06/22/2021 9:37 PM CDT 10 mL Given 06/22/2021 1:42 PM CDT 10 mL Given 06/22/2021 5:59 AM CDT 10 mL sodium chloride 0.9% flush 0.5-20 mL 0.5-20 mL, intra-catheter, As needed, line care, Starting on Tue06/10/21 at 2101, Flush volume based on line type and size. Flush before and after each use. Given 06/11/2021 8:10 AM CDT 10 mL sodium chloride 0.9% flush 0.5-20 mL 0.5-20 mL, intra-catheter, Every 8 hours scheduled, First dose on Tue06/12/21 at 2200, Flush volume based on line type and size. Given 06/22/2021 9:37 PM CDT 10 mL Given 06/22/2021 1:42 PM CDT 10 mL Given 06/22/2021 5:59 AM CDT 10 mL sodium chloride 0.9% flush 0.5-20 mL 0.5-20 mL, intra-catheter, As needed, line care, Starting on Tue06/12/21 at 2006, Flush volume based on line type and size. Flush before and after each use. Given 06/18/2021 1:37 PM CDT 10 mL sodium chloride 0.9% flush 5-10 mL 5-10 mL, intra-catheter, Every 12 hours scheduled, First dose on Tue06/22/21 at 1145, Recovery (IR), Flush volume based on line type, size, and protocol. Given 06/23/2021 9:03 AM CDT 5 mL Given 06/22/2021 9:38 PM CDT 10 mL Given 06/22/2021 11:27 AM CDT 10 mL sodium chloride 0.9% flush 5-20 mL 5-20 mL, intra-catheter, As needed, line care, with each use, Starting on Tue06/22/21 at 1112, Recovery (IR), Flush volume based on line type, size, and protocol. sodium chloride 0.9% infusion 10 mL/hr, intravenous, Continuous, Starting on Chiara 06/11/21 at 0900 New Bag 06/13/2021 9:16 PM CDT 75 mL/hr 75 mL/hr New Bag 06/13/2021 9:11 AM CDT 75 mL/hr 75 mL/hr Rate/Dose Verify 06/12/2021 1:48 PM CDT 75 mL/h r sodium chloride 0.9% IVPB 0-250 mL 0-250 mL, intravenous, Once, On Tue06/17/21 at 0100, For 1 dose, Prime blood tubing and administer amount needed to clear line (usually 50-100 mL) after transfusion complete. New Bag 06/17/2021 1:05 AM CDT 250 mL sodium chloride 0.9% solution 1,000 mL 1,000 mL, intra-catheter, Continuous, Starting on Tue06/12/21 at 2045, With 300 mmHg to maintain patency. New Bag 06/12/2021 9:31 PM CDT 1,000 mL sodium zirconium cyclosilicate (LOKELMA) packet 10 g 10 g, oral, Once, On Tue06/11/21 at 0430, For 1 dose, Adjust medication timing to ensure other oral medications are administered at least 2 hours before or 2 hours after sodium zirconium cyclosilicate. Empty packet(s) into a glass with 3 tablespoons (45 mL) of water. Stir and administer immediately. Repeat until no powder remains in glass., Indications: hyperkalemiaIndications:hyperkalemia Given 06/11/2021 4:43 AM CDT 10 g sodium zirconium cyclosilicate (LOKELMA) packet 10 g 10 g, oral, Once, On Tue06/15/21 at 1315, For 1 dose, Adjust medication timing to ensure other oral medications are administered at least 2 hours before or 2 hours after sodium zirconium cyclosilicate. Empty packet(s) into a glass with 3 tablespoons (45 mL) of water. Stir and administer immediately. Repeat until no powder remains in glass., Indications: hyperkalemiaIndications:hyperkalemia Given 06/15/2021 3:37 PM CDT 10 g sodium zirconium cyclosilicate (LOKELMA) packet 10 g 10 g, oral, 3 times daily, First dose on Tue06/16/21 at 0345, Adjust medication timing to ensure other oral medications are administered at least 2 hours before or 2 hours after sodium zirconium cyclosilicate. Empty packet(s) into a glass with 3 tablespoons (45 mL) of water. Stir and administer immediately. Repeat until no powder remains in glass., Indications: hyperkalemiaIndications:hyperkalemia Given 06/17/2021 8:39 PM CDT 10 g Given 06/17/2021 3:23 PM CDT 10 g Given 06/17/2021 7:54 AM CDT 10 g tamsulosin (FLOMAX) extended release capsule 0.4 mg 0.4 mg, oral, Daily with dinner, First dose on Tue06/11/21 at 1800, Do not crush, chew, cut, dissolve, open or otherwise manipulate tablet/capsule. Given 06/23/2021 8:16 AM CDT 0.4 mg Given 06/22/2021 8:42 AM CDT 0.4 mg Given 06/21/2021 9:37 AM CDT 0.4 mg traMADoL (ULTRAM) tablet 50 mg 50 mg, oral, Every 6 hours PRN, breakthrough pain, Starting on Tue06/10/21 at 2355 Given 06/12/2021 11:11 AM CDT 50 m g Given 06/12/2021 5:02 AM CDT 50 mg Given 06/11/2021 9:38 PM CDT 50 mg traMADoL (ULTRAM) tablet 50 mg 50 mg, oral, Every 8 hours PRN, breakthrough pain, Starting on Tue06/20/21 at 0912 Given 06/20/2021 10:09 PM CDT 50 m g Given 06/20/2021 1:14 PM CDT 50 mg umeclidinium (INCRUSE ELLIPTA) 62.5 mcg/actuation inhaler 62.5 mcg 62.5 mcg (1 puff), inhalation, Daily (correspondence transcriber), First dose on Tue06/11/21 at 0900 Given 06/11/2021 8:08 AM CDT 62.5 mcg umeclidinium (INCRUSE ELLIPTA) 62.5 mcg/actuation inhaler 62.5 mcg 62.5 mcg (1 puff), inhalation, Daily, First dose (after last modification) on Tue06/12/21 at 0900 Given 06/12/2021 9:26 AM CDT 62.5 mcg umeclidinium (INCRUSE ELLIPTA) 62.5 mcg/actuation inhaler 62.5 mcg 62.5 mcg (1 puff), inhalation, Daily, First dose (after last reorder) on Tue06/14/21 at 1230 Given 06/23/2021 10:20 AM CDT 62.5 mcg Given 06/22/2021 8:48 AM CDT 62.5 mcg Given 06/21/2021 11:48 AM CDT 62.5 mcg vancomycin 1500 mg/515 mL in sodium chloride 0.9% (premix) 1,500 mg 1,500 mg (rounded from 1,419 mg = 15 mg/kg ? 94.6 kg), intravenous, Administer over 90 Minutes, Every 12 hours, First dose on Tue06/10/21 at 2330, Indications: empyemaIndications:empyema New Bag 06/11/2021 12:17 AM CDT 1,500 mg vancomycin 1500 mg/515 mL in sodium chloride 0.9% (premix) 1,500 mg 1,500 mg (rounded from 1,419 mg = 15 mg/kg ? 94.6 kg), intravenous, Administer over 90 Minutes, Every 24 hours, First dose (after last modification) on Tue06/12/21 at 0030, Indications: empyema, On hold since 06/13/2021 at 0849 until manually unheldIndications:empyema New Bag 06/13/2021 12:24 AM CDT 1,500 mg New Bag 06/12/2021 12:01 AM CDT 1,500 mg documented in this encounter Discontinued Medications Medication Sig Discontinue Reason Start Date End Da te amLODIPine (NORVASC) 10 mg tablet Take 10 mg by mouth daily Stop Taking at Discharge 03/20/2021 06/23/2021 cloNIDine (CATAPRES) 0.1 mg tablet TAKE 1 TABLET BY MOUTH TWICE A DAY FOR BLOOD PRESSURE Stop Taking at Discharge 02/20/2021 06/23/2021 lisinopriL (PRINIVIL,ZESTRIL) 20 mg tablet Take 20 mg by mouth daily Stop Taking at Discharge 02/24/2021 06/23/2021 tamsulosin (FLOMAX) 0.4 mg extended release capsule TAKE 1 CAPSULE BY MOUTH EVERY DAY 30 MINUTES BEFORE THE SAME MEAL Stop Taking at Discharge 03/06/2021 06/23/2021 hydroCHLOROthiazide (MICROZIDE) 12.5 mg capsule Take 12.5 mg by mouth daily Stop Taking at Discharge 06/23/2021 documented as of this encounter Active and Recently Administered Medications Times are shown in CDT. Scheduled Medication Order 06/21/2021 06/22/2021 06/23/2021 acetaminophen (TYLENOL) tablet 1,000 mg 1,000 mg, oral, Every 6 hours scheduled, First dose (after last modification) on Tue06/16/21 at 1200 0413 (Given - Provider: Ofelia Cody RN)0935 (Given - Provider: Emely Diaz, MARY)1513 (Given - Provider: Emely Diaz RN)2211 (Given - Provider: Ofelia Cody RN) 0329 (Given - Provider: Ofelia Cody RN)1017 (Given - Provider: Jyoti Rivera, RN)1549 (Given - Provider: Jyoti Rivera RN)2136 (Given - Provider: Emely Chase RN) 0651 (Not Given - Provider: Emely Chase RN - Reason: Patient/family refused)1128 (Given - Provider: Sury Peck, RN) amLODIPine (NORVASC) tablet 10 mg 10 mg, oral, Daily, First dose (after last reorder) on Tue06/14/21 at 0900, On hold since Tue06/15/2021 at 1027 until manually unheld 1100 (Dose Auto Held) 1100 (Dose Auto Held) 1100 (Canceled Entry - Provider: Sury Peck RN)1707 (Unheld by Provider - Provider: Automatic Discharge Provider) atorvastatin (LIPITOR) tablet 40 mg 40 mg, oral, Daily, First dose (after last reorder) on Tue06/14/21 at 0900 0935 (Given - Provider: Emely Diaz RN) 1018 (Given - Provider: Jyoti Rivera RN) 1128 (Given - Provider: Sury Peck, RN) carvediloL (COREG) tablet 12.5 mg 12.5 mg, oral, 2 times daily, First dose (after last modification) on Tue06/22/21 at 2100, Hold sys BP <100 2137 (Given - Provider: Emely Chase RN) 0816 (Given - Provider: Sury Peck RN) carvediloL (COREG) tablet 6.25 mg (CANCELED) 6.25 mg, oral, 2 times daily, First dose (after last modification) on Tue06/15/21 at 2100, Hold sys BP <100 0937 (Given - Provider: Emely Diaz RN)2210 (Given - Provider: Ofelia Cody RN) 0842 (Given - Provider: Jyoti Rivera RN) cefTRIAXone (ROCEPHIN) 2,000 mg/20 mL in sterile water (premix) 2,000 mg 2,000 mg, intravenous, at 1,200 mL/hr, Administer over 1 Minutes, Every 24 hours scheduled, First dose on Tue06/15/21 at 1430, Indications: empyema 0956 (Given - Provider: Emely Diaz RN) 0841 (Given - Provider: Jyoti Rivera, RN) 0903 (Given - Provider: Sury Peck RN) cloNIDine (CATAPRES) tablet 0.1 mg 0.1 mg, oral, 2 times daily, First dose (after last reorder) on 06/13/21 at 2145, On hold since Tue06/15/2021 at 1027 until manually unheld 0900 (Dose Auto Held)2100 (Dose Auto Held) 0900 (Dose Auto Held)2100 (Dose Auto Held) 0900 (Canceled Entry - Provider: Sury Peck RN)1707 (Unheld by Provider - Provider: Automatic Discharge Provider) doxepin (SINEquan) capsule 25 mg 25 mg, oral, Nightly, First dose (after last reorder) on 06/13/21 at 2145 2210 (Given - Provider: Ofelia Cody RN) 2136 (Given - Provider: Emely Chase RN) doxycycline (VIBRAMYCIN) tablet/capsule 100 mg 100 mg, oral, 2 times daily (for quinolones,etc), First dose on Tue06/22/21 at 1800, Give 2 hrs before or 2 hrs after MVI, antacids, or other products containing sucralfate, magnesium, aluminum, iron, or zinc. May be taken without regard to meals., Indications: empyema 1800 (Due) 0656 (Given - Provider: Emely Chase RN) enoxaparin (LOVENOX) syringe 30 mg 30 mg, subcutaneous, Daily (for enoxaparin), First dose on Tue06/12/21 at 2100, Indications: Deep Vein Thrombosis Prevention 220 (Given - Provider: Ofelia Cody RN) 2136 (Given - Provider: Emely Chase RN) hydrocortisone 2.5 % cream topical, 2 times daily, First dose on Tue06/21/21 at 2100, Apply to affected area: rash 2100 (Given - Provider: Ofelia Cody RN) 1018 (Given - Provider: Jyoti Rivera, MARY)2152 (Not Given - Provider: Emely Chase RN - Reason: Medication not available) 0903 (Given - Provider: Sury Peck, RN) lidocaine (LIDODERM) 5 % patch 2 patch 2 patch, transdermal, Administer over 12 Hours, Daily, First dose (after last modification) on Tue06/15/21 at 0145, Do not cover the holes on the top side of the patch., Apply to affected area: back 0954 (Medication Applied - Provider: Emely Diaz RN)2212 (Medication Removed - Provider: Ofelia Cody RN) 0843 (Medication Applied - Provider: Jyoti Rivera, MARY)2048 (Medication Removed - Provider: Emely Chase, MARY) 0816 (Medication Applied - Provider: Sury Peck RN)1306 (Due: Medication Removed - Provider: Automatic Discharge Provider - Comment: Time automatically adjusted from order being discontinued) linezolid (ZYVOX) tablet 600 mg (CANCELED) 600 mg, oral, 2 times daily, First dose on Tue06/15/21 at 1430, Indications: empyema 0935 (Given - Provider: Emely Diaz RN)2210 (Given - Provider: Ofelia Cody RN) 0842 (Given - Provider: Jyoti Rivera RN) magnesium sulfate 4 g/100 mL in water (premix) 4 g (COMPLETED) 4 g, intravenous, Administer over 90 Minutes, Once, On Tue06/22/21 at 0315, For 1 dose 0557 (New Bag - Provider: Ofelia Cody RN) metroNIDAZOLE (FLAGYL) tablet 500 mg 500 mg, oral, 3 times daily, First dose on Tue06/15/21 at 1600, Indications: empyema 0935 (Given - Provider: Emely Diaz RN)1513 (Given - Provider: Emely Diaz RN)2210 (Given - Provider: Ofelia Cody RN) 0841 (Given - Provider: Jyoti Rivera, MARY)1549 (Given - Provider: Jyoti Rivera RN)2137 (Given - Provider: Emely Chase, MARY) 0816 (Given - Provider: Sury Peck RN) pantoprazole DR (PROTONIX) extended release tablet 40 mg 40 mg, oral, Daily, First dose on Tue06/11/21 at 0900, Do not crush, chew, cut, dissolve, open or otherwise manipulate tablet/capsule., Indications: Treatment of Non-Bleeding Gastric Disorder 0935 (Given - Provider: Emely Diaz RN) 0842 (Given - Provider: Jyoti Rivera, RN) 0816 (Given - Provider: Sury Peck, RN) polyethylene glycol (MIRALAX) packet 17 g 17 g, oral, Daily, First dose (after last modification) on Tue06/17/21 at 0900, Indications: constipation 0939 (Not Given - Provider: Emely Diaz RN - Reason: Patient/family refused) 0843 (Not Given - Provider: Jyoti Rivera RN - Reason: Patient/family refused) 0915 (Not Given - Provider: Sury Peck RN - Reason: Patient/family refused) potassium chloride (KLOR-CON) packet 20 mEq (COMPLETED) 20 mEq, feeding tube, Once, On Tue06/22/21 at 0315, For 1 dose, Dissolve one packet in at least 120 mL of cold water or other beverage prior to administration. 0635 (Given - Provider: Ofelia Cody RN) sodium chloride 0.9% flush 0.5-20 mL 0.5-20 mL, intra-catheter, Every 8 hours scheduled, First dose on Tue06/10/21 at 2200, Flush volume based on line type and size. 0413 (Given - Provider: Ofelia Cody RN)1324 (Given - Provider: Emely Diaz RN)2213 (Given - Provider: Ofelia Cody RN) 0559 (Given - Provider: Ofelia Cody RN)1342 (Given - Provider: Jyoti Rivera, RN)2137 (Given - Provider: Emely Chase, MARY) 0656 (Not Given - Provider: Emely Chase, MARY - Reason: Other) sodium chloride 0.9% flush 0.5-20 mL 0.5-20 mL, intra-catheter, Every 8 hours scheduled, First dose on Tue06/12/21 at 2200, Flush volume based on line type and size. 0413 (Given - Provider: Ofelia Cody RN)1324 (Given - Provider: Emely Diaz RN)2213 (Given - Provider: Ofelia Cody RN) 0559 (Given - Provider: Ofelia Cody RN)1342 (Given - Provider: Jyoti Rivera, RN)2137 (Given - Provider: Emely Chase, MARY) 0657 (Not Given - Provider: Emely Chase RN - Reason: Patient/family refused) sodium chloride 0.9% flush 5-10 mL 5-10 mL, intra-catheter, Every 12 hours scheduled, First dose on 06/22/21 at 1145, Recovery (IR), Flush volume based on line type, size, and protocol. 1127 (Given - Provider: Jyoti Rivera RN)2138 (Given - Provider: Emely Chase, MARY) 0903 (Given - Provider: Sury Peck, RN) tamsulosin (FLOMAX) extended release capsule 0.4 mg 0.4 mg, oral, Daily with dinner, First dose on Chiara 06/11/21 at 1800, Do not crush, chew, cut, dissolve, open or otherwise manipulate tablet/capsule. 0937 (Given - Provider: Emely Diaz RN) 0842 (Given - Provider: Jyoti Rivera, MARY) 0816 (Given - Provider: Sury Peck, RN) umeclidinium (INCRUSE ELLIPTA) 62.5 mcg/actuation inhaler 62.5 mcg 62.5 mcg (1 puff), inhalation, Daily, First dose (after last reorder) on 06/14/21 at 1230 1148 (Given - Provider: Emely Diaz, MARY) 0848 (Given - Provider: Jyoti Rivera, MARY) 1020 (Given - Provider: Sury Peck, RN) PRN Medication Order 06/21/2021 06/22/2021 06/23/2021 albuterol 2.5 mg/0.5 mL nebulizer solution 2.5 mg 2.5 mg, nebulization, 3 times daily PRN (correspondence transcriber), wheezing, Starting on 06/14/21 at 1925 bisacodyl EC (DULCOLAX EC) tablet 10 mg 10 mg, oral, Daily PRN, constipation, If no results 24 hours after polyethylene glycol (MIRALAX). May give bisacodyl supp if not tolerating PO), Starting on Tue06/10/21 at 2101, Do not crush, chew, cut, dissolve, open or otherwise manipulate tablet/capsule., Indications: constipation calcium carbonate (TUMS) chewable tablet 500 mg 500 mg (200 mg of elemental calcium), oral, Daily PRN, indigestion, Starting on 06/13/21 at 1735 ondansetron ODT (ZOFRAN-ODT) disintegrating tablet 4 mg(Linked Group 1) 4 mg, oral, Every 6 hours PRN, nausea, vomiting, Starting on Tue06/10/21 at 2101, Indications: Nausea and Vomiting 182 (Given - Provider: Emely Diaz RN - Comment: MD carballo)182 (Canceled Entry - Provider: Emely Diaz RN) oxyCODONE (ROXICODONE) tablet 5 mg 5 mg, oral, Every 4 hours PRN, 1st line for pain, Starting on 06/21/21 at 0133, Indications: Pain 0418 (Given - Provider: Ofelia Cody RN)0935 (Given - Provider: Emely Diaz RN)1513 (Given - Provider: Emely Diaz RN)2210 (Given - Provider: Ofelia Cody RN) 0321 (Given - Provider: Ofelia Cody RN)0847 (Given - Provider: Jyoti Rivera RN)1342 (Given - Provider: Jyoti Rivera RN)1734 (Given - Provider: Jyoti Rivera RN)2137 (Given - Provider: Emely Chase RN) 0220 (Given - Provider: Emely Chase RN)0656 (Given - Provider: Emely Chase RN) ramelteon (ROZEREM) tablet 8 mg 8 mg, oral, Nightly PRN, sleep, Starting on 06/13/21 at 2059, Indications: Sleep-Onset Insomnia 0005 (Given - Provider: Ofelia Cody RN) 2137 (Given - Provider: Emely Chase RN) sodium chloride 0.9% flush 0.5-20 mL 0.5-20 mL, intra-catheter, As needed, line care, Starting on Tue06/10/21 at 2101, Flush volume based on line type and size. Flush before and after each use. sodium chloride 0.9% flush 0.5-20 mL 0.5-20 mL, intra-catheter, As needed, line care, Starting on Tue06/12/21 at 2006, Flush volume based on line type and size. Flush before and after each use. sodium chloride 0.9% flush 5-20 mL 5-20 mL, intra-catheter, As needed, line care, with each use, Starting on Tue06/22/21 at 1112, Recovery (IR), Flush volume based on line type, size, and protocol. traMADoL (ULTRAM) tablet 50 mg 50 mg, oral, Every 8 hours PRN, breakthrough pain, Starting on Tue06/20/21 at 0912 Linked Groups Order Group 1: ondansetron ODT (ZOFRAN-ODT) disintegrating tablet 4 mgJump to med 4 mg, oral, Every 6 hours PRN, nausea, vomiting, Starting on Tue06/10/21 at 2101, Indications: Nausea and Vomiting Or ondansetron (ZOFRAN) injection 4 mg (CANCELED) 4 mg, intravenous, Administer over 2 Minutes, Every 6 hours PRN, nausea, vomiting, if not tolerating PO, Starting on Tue06/10/21 at 2101, Indications: Nausea and Vomiting documented in this encounter Orders Medications Ordered That Mainor ht Not Have Been Administered Count Last Ordered Date First Ordered Date sodium chloride 0.9% flush 5-20 mL 1 2020 potassium chloride (KLOR-CON ) packet 40 mEq 1 06/20/2021 lactulose 0.67 gram/mL oral solution 20 g 1 06/17/2021 magnesium hydroxide (MILK OF MAGNESIA) 80 mg/mL (33.3 mg/mL as elemental magnesium) oral suspension 30 mL 1 06/17/2021 HYDROmorphone (DILAUDID) injection 0.2 mg 2 06/16/2021 06/14/2021 lidocaine (LIDODERM) 5 % patch 2 patch 1 oxyCODONE (ROXICODONE) tablet 5 mg 2 202006/12/2021 acetaminophen (TYLENOL) tablet 1,000 mg 1 1 bupivacaine (MARCAINE) 0.5 % (5 mg/mL) preservative free injection 1 06/12/2021 fentaNYL (SUBLIMAZE) preserv ative free injection 50 mcg 1 06/12/2021 Lactated Ringer's (LR) infusion 1 Lactated Ringer's (LR) infus ion - ADS Override Pull 1 06/12/2021 lidocaine PF (XYLOCAINE) 10 mg/mL (1 %) preservative free injection 2-10 mg 1 06/12/2021 meperidine (DEMEROL) preserv ative free injection 12.5 mg 1 06/12/2021 metoclopramide (REGLAN) injection 10 mg 1 1 naloxone (NARCAN) 0.4 mg/mL injection 0.04-0.4 mg 2 06/12/2021 norepinephrine in 0.9% sodiu m chloride (LEVOPHED) 8,000 mcg/250 mL (32 mcg/mL) infusion (premix) 1 06/12/2021 ondansetron (ZOFRAN) injection 4 mg 2 06/1206/10/2021 sodium chloride 0.9% flush 0.5-20 mL 1 05/23 sodium chloride 0.9% irrigation 1 sterile water irrigation 1 06/12/2021 acetaminophen (TYLENOL) 32 m g/mL oral solution 650 mg 1 06/10/2021 acetaminophen (TYLENOL) suppository 650 mg 1 06/10/2021 albuterol 2.5 mg/0.5 mL nebu lizer solution 2.5 mg 3 06/10/2021 albuterol HFA (PROVENTIL HFA ,VENTOLIN HFA,PROAIR HFA) 90 mcg/actuation inhaler 2 puff 1 06/10/2021 apixaban (ELIQUIS) tablet 2.5 mg 1 06/10/20 bisacodyL (DULCOLAX) suppository 10 mg 1 bisacodyl EC (DULCOLAX EC) tablet 10 mg 1 1 clopidogreL (PLAVIX) tablet 75 mg 1 021 hydroCHLOROthiazide (HYDRODI URIL) tablet 12.5 mg 1 06/10/2021 lisinopriL (PRINIVIL,ZESTRIL) tablet 20 mg 1 06/10/2021 polyethylene glycol (MIRALAX) packet 17 g 1 06/10/2021 ramelteon (ROZEREM) tablet 8 mg 1 Imaging Orders Without Results Count Last Order ed Date First Ordered Date PEP THERAPY/AIRWAY CLEARANCE 3 06/21/2021 06/19/2021 Diet Count Last Ordered Date First Orde red Date ADULT DISCHARGE DIET 1 06/23/2021 Nursing Count Last Ordered Date First Orde red Date DISCHARGE ACTIVITY 2 06/23/2021 DISCHARGE CALL PROVIDER 2 06/23/2021 DISCHARGE DRESSING 2 06/23/2021 STRAIGHT CATH 2 06/21/2021 06/13/2021 REPLACE [place] 1 06/14/2021 DISCONTINUE VASCULAR ACCESS (SPECIFY) 1 [place] CATHETER - DISCONTINUE 1 06/13/2021 WEIGH PATIENT 2 06/10/2021 Consult Count Last Ordered Date First Orde red Date IP CONSULT TO VASCULAR ACCESS TEAM 1 2020 CONSULT TO GENERAL INFECTIOUS DISEASE 1 IP CONSULT TO NEPHROLOGY 1 06/15/2021 CORE MEASURES Count Last Ordered Date First Ord ered Date REASON FOR NO VTE PROPHYLAXIS AT ADMISSION 2 06/10/2021 Case Request Count Last Ordered Date First Orde red Date CASE REQUEST OPERATING ROOM 1 06/11/2021 documented in this encounter Care Teams Immigration Manager Relationship Specialty Start Date End Date Unknown, Notinfile PCP - General 06/10/21 06/10/21 Ross Espinosa MD [address] [place] [address] PCP - General 06/11/21 03/02/22 documented as of this encounter
--- OUTSIDE RECORDS SUMMARY | 2024-09-12 15:48 | XMS_ITS | Encounter Summary ---
Author Organization [facility] Healthcare Address [address] [place] [address] Care Team Providers Care Creative Resource Manager Name Role Phone Unknown, Notinfile Primary Care Provider Unavail able Encounter Details Date Type Department Care Team (Latest Contact Info) Description 06/10/2021 10:52 PM CDT - 06/10/2021 11:59 PM CDT Hospital Encounter [facility]iology [facility] [address] [place] [id number] Discharge Disposition: Discharge to home or self care Social History Tobacco Use Types Packs/Day Years Used Date Smoking Tobacco: Former Cigarettes Q uit: 08/22/2009 Smokeless Tobacco: Never Sex and Gender Information Value Date Recorded Sex Assigned at Not on file Legal Sex Male 1:43 PM CDT Gender Identity Male 08/12/2022 2:14 PM [employer] Sexual Orientation Not on file documented as [...] a day 90 tablet 1 06/23/2021 2 amLODIPine (NORVASC) 10 mg tablet Take 10 mg by mouth daily 03/20/2021 1 apixaban (ELIQUIS) 2.5 mg tablet Take 2.5 mg by mouth 2 (two) times a day 2 atorvastatin (LIPITOR) 40 mg tablet Take 40 mg by mouth daily 04/14/2021 2 cefTRIAXone (ROCEPHIN) syringeIndicatio ns:empyema Infuse 20 mL (2,000 mg total) into a venous catheter daily 06/23/2021 1 cetirizine 10 mg capsule Take by mouth 4 cloNIDine (CATAPRES) 0.1 mg tablet TAKE 1 TABLET BY MOUTH TWICE A DAY FOR BLOOD PRESSURE 02/20/2021 1 clopidogreL (PLAVIX) 75 mg tablet Take 1 tablet (75 mg total) by mouth daily 04/17/2021 3 hydroCHLOROthiaz betsy (MICROZIDE) 12.5 mg capsule Take 12.5 mg by mouth daily 1 lisinopriL (PRINIVIL,ZESTRI L) 20 mg tablet Take 20 mg by mouth daily 02/24/2021 1 melatonin 5 mg capsule Take by mouth [...] PUFFS BY MOUTH ONCE DAILY 04/21/2021 5 tamsulosin (FLOMAX) 0.4 mg extended release capsule TAKE 1 CAPSULE BY MOUTH EVERY DAY 30 MINUTES BEFORE THE SAME MEAL 03/06/2021 1 documented as of this encounter Discharge Disposition Disposition Code Departure Means Destination Discharge to home or self care documented in this encounter Plan of Treatment Not on file documented as of this encounter Procedures Procedure Name Priority Date/Time Associated Diagnosis Comments US TRANSFER OF OUTSIDE FILMS Routine 06/10/2021 10:52 PM CDT Diagnosis unknown documented in this encounter Results * US Outside Reference (06/10/2021 10:52 PM CDT) Impressions [facility] - 06/10/2021 10:52 PM CDT These images are for Reference purposes only and have not been reviewed by [facility] Radiology. ??There will be no report generated by a [facility] Radiologist. Narrative [facility] - 06/10/2021 10:52 PM CDT EXAMINATION: ??Images For Reference Purposes Only us Valarie Edwards MD IMG US PROCEDURES Final R esult [facility] documented in this encounter Visit Diagnoses Not on filedocumented in this encounter Care Teams Creative Resource Manager Relationship Specialty Start Date End Date Unknown, Notinfile PCP - General 06/10/21 06/10/21 documented as of this encounter
--- OUTSIDE RECORDS SUMMARY | 2024-09-12 15:48 | XMS_ITS | Encounter Summary ---
Author Organization [facility] Healthcare Address [address] [place] [address] Care Team Providers Care Heel Sander Rubber Name Role Phone Unknown, Notinfile Primary Care Provider Unavail able Encounter Details Date Type Department Care Team (Latest Contact Info) Description 06/10/2021 10:48 PM CDT Hospital Encounter [facility] [address] [place] [address] [phone] Discharge Disposition: Discharge to home or self care Social History Tobacco Use Types Packs/Day Years Used Date Smoking Tobacco: Former Cigarettes Q uit: 08/22/2009 Smokeless Tobacco: Never Sex and Gender Information Value Date Recorded Sex Assigned at Not on file Legal Sex Male 1:43 PM CDT Gender Identity Male 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 ??There will be no report generated by a [facility] Radiologist. Narrative [facility] - 06/10/2021 10:48 PM CDT EXAMINATION: ??Images For Reference Purposes Only us Valarie Edwards MD IMG CT PROCEDURES Final R esult [facility] documented in this encounter Visit Diagnoses Not on filedocumented in this encounter Care Teams Heel Sander Rubber Relationship Specialty Start Date End Date Unknown, Notinfile PCP - General 06/10/21 06/10/21 documented as of this encounter
--- OUTSIDE RECORDS SUMMARY | 2024-09-12 15:48 | XMS_ITS | Encounter Summary ---
Author Organization [facility] Healthcare Address [address] [place] [address] Care Team Providers Care Benefit Director Name Role Phone Unknown, Notinfile Primary Care Provider Unavail able Encounter Details Date Type Department Care Team (Latest Contact Info) Description 06/10/2021 10:50 PM CDT Hospital Encounter [facility] [address] [place] [address] [phone] Discharge Disposition: Discharge to home or self care Social History Tobacco Use Types Packs/Day Years Used Date Smoking Tobacco: Former Cigarettes Q uit: 08/22/2009 Smokeless Tobacco: Never Sex and Gender Information Value Date Recorded Sex Assigned at Not on file Legal Sex Male 1:43 PM CDT Gender Identity Male 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 ??There will be no report generated by a [facility] Radiologist. Narrative [facility] - 06/10/2021 10:50 PM CDT EXAMINATION: ??Images For Reference Purposes Only us Valarie Edwards MD IMG XR PROCEDURES Final R esult [facility] documented in this encounter Visit Diagnoses Not on filedocumented in this encounter Care Teams Benefit Director Relationship Specialty Start Date End Date Unknown, Notinfile PCP - General 06/10/21 06/10/21 documented as of this encounter
--- OUTSIDE RECORDS SUMMARY | 2024-09-12 15:48 | XMS_ITS | Encounter Summary ---
Author Organization [facility] Healthcare Address [address] [place] [address] Care Team Providers Care Prover Name Role Phone Unknown, Notinfile Primary Care Provider Unavail able Encounter Details Date Type Department Care Team (Latest Contact Info) Description 06/10/2021 10:51 PM CDT Hospital Encounter [facility] [address] [place] [address] [phone] Discharge Disposition: Discharge to home or self care Social History Tobacco Use Types Packs/Day Years Used Date Smoking Tobacco: Former Cigarettes Q uit: 08/22/2009 Smokeless Tobacco: Never Sex and Gender Information Value Date Recorded Sex Assigned at Not on file Legal Sex Male 1:43 PM CDT Gender Identity Male 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 ??There will be no report generated by a [facility] Radiologist. Narrative [facility] - 06/10/2021 10:51 PM CDT EXAMINATION: ??Images For Reference Purposes Only us Valarie Edwards MD IMG XR PROCEDURES Final R esult [facility] documented in this encounter Visit Diagnoses Not on filedocumented in this encounter Care Teams Prover Relationship Specialty Start Date End Date Unknown, Notinfile PCP - General 06/10/21 06/10/21 documented as of this encounter
--- OUTSIDE RECORDS SUMMARY | 2024-09-12 15:48 | XMS_ITS | Encounter Summary ---
Author Organization [facility] Healthcare Address [address] [place] [address] Care Team Providers Care Phone Circuit Operator Name Role Phone Ross Espinosa MD Primary Care Provider [phone] Encounter Details Date Type Department Care Team (Late st Contact Info) Description 06/12/2021 1:48 PM CDT Anesthesia Event [facility] Operating Room [address] [place] [address] Talon Resendiz MD [address] [place] [address] Akila Brody, MECHANICAL SERVICE REPRESENTATIVE [address] [address] [id number] [place] [address] Anesthesia Record Procedure Summary Procedure Name Responsible Anesthesiologist Anesthesia Start Time Anesthesia Stop Time THORACOTOMY, decortication (Left: Chest) Talon Resendiz MD 06/12/21 1348 06/12/21 1721 Events Date Time Event Comment 06/12/2021 1307 In Preop 1346 1348 An Start 1348 An Start Data 1348 In Room 1421 An Induction The patient was reevaluated immediately before moderate or deep sedation use and before anesthesia induction. 1424 An Intubation 1448 1 Lung ventilation - Left 1454 Anesthesia Ready 1501 Proc Start 1505 Incision Start 1643 Proc Fin 1656 An Extubation 1658 an stop data 1706 Out of Room 1721 Handoff to RN I completed my handoff to the receiving nurse during which we: 1. Patient identified 2. Responsible provider identified 3. Pertinent medical history reviewed 4. Procedure type and surgical course discussed 5. Intraoperative anesthetic management and any significant issues discussed 6. Expectations and concerns for postop period discussed 7. Questions solicited from receiving nurse 8. Patient disposition at the time of handoff: PACU 1721 An Stop Meds Name Total fentaNYL 450 mcg lidocaine (cardiac) syringe 2 % 100 mg propofol 200 mg propofol 1,071.35 mg rocuronium 40 mg phenylephrine 100 mcg/mL 1,000 mcg ondansetron PF (ZOFRAN) 2 mg/mL injectio n 4 mg norepinephrine in 0.9% sodiu m chloride (LEVOPHED) 8,000 mcg/250 mL (32 mcg/mL) infusion (premix) 0.76 mg norepinephrine 112 mcg neostigmine injection 1 mg/mL 5 mg glycopyrrolate 0.8 mcg sodium bicarbonate 1 meq/mL (8.4 %) 100 mEq dexamethasone 4 mg/ml 4 mg sodium chloride 0.9% infusion 0 mL Lactated Ringer's (LR) infusion 500 mL * Agents Name O2% N2O O2 Isoflurane Inspired Isoflurane * Blood No blood administrations on file. Lines, Drains, and Airways Type Details Placement Removal Peripheral IV Placement Date: 06/09/21 (placed in OSH); Placement Time: 0000 (unkown, placed in OSH); Existing LDA Placed by: Other hospital; Catheter Size: 20 G; Orientation: Anterior, Left, Proximal; Location: Forearm; Removal Date: 06/14/21; Removal Time: 1000 06/09/21 0000 by Daniela Pulido RN 06/14/21 1000 by Jyoti Rivera RN Urethral Catheter Placement Date: 06/12/21; Placement Time: 1423; Inserted by: Pradeep Palma; Type: (silicone); Balloon Size: 10 mL; Urine Returned: Yes; Removal Date: 06/13/21; Removal Time: 92906/12/21 1423 by Cherie Tenorio RN 06/13/21 0930 by Nabil Gonzalez RN ETT Placement Date: 06/12/21; Placement Time: 1509 (created via procedure documentation); Mask Ventilation: 1; Technique: Video laryngoscopy; Type: ETT - double lumen left; Double Lumen Tube Size: 39 Fr; Cuffed: Yes; Laryngoscope: Ravinder; Blade Size: 4; Location: Oral; Insertion Attempts: 1; Placement Verification: Auscultation, Capnometry; Removal Date: 06/12/21; Removal Time: 1656 06/12/21 1509 by Brooklyn Gruber MD 06/12/21 1656 by Talon Resendiz MD Peripheral IV Placement Date: 06/12/21; Placement Time: 1509 (created via procedure documentation); Catheter Size: 18 G; Orientation: Right; Location: Hand; Site Prep: Alcohol; Insertion Attempts: 1; Removal Date: 06/13/21; Removal Time: 1024; Removal Reason: Removed by patient 06/12/21 1509 by Brooklyn Gruber MD 06/13/21 1024 by Nabil Gonzalez RN Arterial Line Placement Date: 06/12/21; Placemnt Time: 1510 (created via procedure documentation); Size: 20 G; Orientation: Left; Location: Radial; Securement: Taped, Transparent dressing; Removal Date: 06/13/21; Removal Time: 0900 06/12/21 1510 by Brooklyn Gruber MD 06/13/21 0900 by Nabil Gonzalez RN RETIRED Surgical Site 06/12/21; 1538; Le ft, Mid-line; Flank; 07/25/21 06/12/21 1538 by Cherie Tenorio RN 07/25/21 0000 by Briana Ornelas RN Chest Tube Placement Date: 06/12/21; Placement Time: 1613; Inserted by: Benny Lujan; Orientation: Left; Location: Pleural; Size: 28 Fr; Drainage System: (pleuravac); Removal Date: 06/16/21 06/12/21 1613 by Cherie Tenorio RN 06/16/21 0000 by Edil Sorto RN Chest Tube Placement Date: 06/12/21; Placement Time: 1615; Inserted by: Benny Lujan; Orientation: Left; Location: Pleural; Size: 28 Fr; Drainage System: (Pleuravac); Removal Date: 06/18/21 06/12/21 1615 by Cherie Tenorio RN 06/18/21 0000 by Edil Sorto RN documented in this encounter Social History Tobacco Use Types Packs/Day Years Used Date Smoking Tobacco: Former Cigarettes Q uit: 08/22/2009 Smokeless Tobacco: Never Sex and Gender Information Value Date Recorded Sex Assigned at Not on file Legal Sex Male 1:43 PM CDT Gender Identity Male 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 Sexual Orientation Not on file documented as of this encounter OR Notes * Anesthesia Postprocedure Evaluation - Talon Resendiz MD - 06/12/2021 6:03 PM CDT Patient: Freddy Hill Procedure Summary Date: 06/12/21 Room / Location: [facility] OR POD 3 ROOM 310 / [facility] OR POD 3 Anesthesia Start: 1348 Anesthesia Stop: 1721 Procedure: THORACOTOMY, decortication (Left Chest) Diagnosis: Empyema lung (CMS/HCC) (HCC) (Empyema lung (CMS/HCC) (HCC) [J86.9]) Surgeons: Benny Carpenter MD Responsible Provider: Talon Resendiz MD Anesthesia Type: general/TIVA ASA Status: 4 Anesthesia Type: general/TIVA Last vitals BP 124/54 (BP Location: Right arm, Patient Position: Lying) Pulse 93 Temp 36.1 ??C (97 ??F) Resp 23 SpO2 93% Anesthesia Post Evaluation Patient location during evaluation: PACU Level of consciousness: fully awake Pain score: 6 Pain management: satisfactory to patient Airway patency: adequate Evidence of recall: no Cardiovascular status: acceptable Respiratory status: acceptable Hydration status: acceptable Pt is: normothermic Nausea/Vomiting status: none Comments: The patient has really improved. We have started the [employer] for pain. His trajectory is good. No complications documented. * Anesthesia Postprocedure Evaluation - Talon Resendiz MD - 06/12/2021 5:49 PM CDT Patient: Freddy Hill Procedure Summary Date: 06/12/21 Room / Location: [facility] OR POD 3 ROOM 310 / [facility] OR POD 3 Anesthesia Start: 1348 Anesthesia Stop: 1721 Procedure: THORACOTOMY, decortication (Left Chest) Diagnosis: Empyema lung (CMS/HCC) (HCC) (Empyema lung (CMS/HCC) (HCC) [J86.9]) Surgeons: Benny Carpenter MD Responsible Provider: Talon Resendiz MD Anesthesia Type: general/TIVA ASA Status: 4 Anesthesia Type: general/TIVA Last vitals BP 124/54 (BP Location: Right arm, Patient Position: Lying) Pulse 93 Temp 36.1 ??C (97 ??F) Resp 23 SpO2 93% Anesthesia Post Evaluation Patient location during evaluation: PACU Patient participation: complete - patient participated Level of consciousness: fully awake Pain score: 0 Pain management: adequate Evidence of recall: no Cardiovascular status: hemodynamically stable Respiratory status: unstable Hydration status: hypervolemic Pt is: normothermic Nausea/Vomiting status: none Comments: Patient has severe COPD with reversible component. He did well with the surgery, althoughhe needed pressors. Postoperatively, he was retaining CO2, but the trend was in the right direction. Clinically, he had bronchospasm and pulmonary edema. We treated these (furosemide and breathing treatments) and the response was appropriate (the patient felt better). The patient was lucid throughout. We spoke to our colleagues in the PACU. We requested that the ABG be repeated at 6 pm and that adecision be made regarding ICU versus HDU care. I left my number for any concerns. [phone] (Martín) No complications documented. * Anesthesia Procedure Notes - Brooklyn Gruber MD - 06/12/2021 3:09 PM CDTAssociated Order(s): Arterial Line Arterial Line Patient location: OR Indication: continuous blood pressure monitoring and blood sampling needed Staff: Supervising provider: Talon Resendiz MD Placed by: Other staff: Benny Carpenter MD Procedure prep: Prep solution: chlorhexadine/alcohol Prep: provider hat/mask and sterile gloves Arterial line: Catheter size: 20 gauge Catheter length: 1 and 3/4 inch Catheter type: wire-guided catheter Seldinger technique: yes Laterality: left Site: radial artery Line secured: tape and Tegaderm Results: good waveform and good blood return Number of attempts: 3 Assessment: Events: patient tolerated procedure well with no complications * Anesthesia Procedure Notes - Brooklyn Gruber MD - 06/12/2021 3:09 PM CDTAssociated Order(s): Peripheral IV Catheter Peripheral IV Catheter Patient location: OR Staff: Placed by: Fellow: Odette Cook MD Preprocedure prep: Prep solution: alcohol PPE: gloves PIV line: Laterality: right Site: hand Catheter size: 18 g Technique: anatomical landmarks and direct visualization Procedure details: good blood return and occlusive dressing applied Number of attempts: 1 Assessment: Events: patient tolerated procedure well with no complications * Anesthesia Procedure Notes - Brooklyn Gruber MD - 06/12/2021 3:08 PM CDTAssociated Order(s): Airway Airway Patient location: OR Urgency: elective Indications for airway management: anesthesia Difficult airway: no Staff: Supervising provider: Talon Resendiz MD Placed by: Resident: Brooklyn Gruber MD Emergent airway documentation: Risks and benefits discussed: yes Consent obtained: yes Consent given by: patient Airway prep: Preoxygenated: yes Patient position: sniffing MILS maintained throughout: yes Mask difficulty assessment: 1 - vent by mask Spontaneous ventilation during airway: absent Sedation level during airway: GA Final airway details: Final airway type: endotracheal airway Tube type: ETT - double lumen left ETT double lumen: 39 fr Cuffed: yes Technique used for successful ETT placement: video laryngoscopy Insertion site: oral Blade type: Ravinder Video blade type: CMAC Blade size: 4 Cormack-Lehane (video): grade I - full view of glottis Cuff inflated with: air Placement verified by: auscultation and CO2 detection Airway secured with: silk tape Number of attempts: 1 Planned trial extubation: yes * Anesthesia Preprocedure Evaluation - Talon Resendiz MD - 06/11/2021 2:15 PM CDT Images from the original note were not included. [facility] Preoperative Assessment and Planning Preoperative Evaluation Record Evaluation type/location: IPAP at [facility] Planned procedure site: Not Scheduled Date: 06/11/21 Anesthesia Evaluation Freddy Hill is a 70 y.o. male * No procedures listed * * No Diagnosis Codes entered * HISTORY HPI Freddy Hill is a 70 y.o. male with empyema and c/o left lung pain who is being evaluated prior to undergoing thoracotomy, lung decortication, possible biopsy. PMHof??COPD, ANDRZEJ, asthma, CKD3, HTN, AICD, carotid stenosis s/p R CEA, PAD s/p peripheral artery angioplasty with 3 stents to LLE Past Medical History Information obtained from: chart. Neurological + CEA - right. + ICA stenosis - left internal carotid artery and right internal carotid artery. Left ICA stenosis <50%. Right ICA stenosis <50% stenosis. 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 Brand: [employer]. Year inserted / last revised: 06/2020. + PAD/Aorta disease (prior endovascular and surgical intervention LLE-3 stents to LLE) - prior percutaneous revascularization. Pertinent negatives: CAD ; [place] ; CABG ; valvular heart disease; valve replacement; atrial fibrillation; arrhythmia; DVT/PE; negative for CHF; drug- eluting stent(s); bare metal stent(s) and coronary angioplasty Respiratory + COPD Dyspnea frequency: throughout the day. + Asthma Dyspnea frequency: throughout the day. + Sleep apnea (ANDRZEJ) (unable to tolerate CPAP. Uses oxygen @ 2L at night and prn activity) Prescribed device: PAP non-compliant. + O2 use outside the hospital (prn oxygen use with activity. ) - Sleep O2: 2L/min. Activity O2: 2L/min. Pertinent negatives: pulmonary hypertension and non-smoker Hepatic / Heme + History of anemia (H&H 10.5/32.8) Pertinent negatives: liver disease; history of thrombocytopenia and history of Yonathan positive Gastrointestinal + GERD Pertinent negatives: hiatal hernia Renal / + Renal disease (CKD 3) - CKD Pertinent negatives: dialysis and nephrolithiasis Musculoskeletal/Pain + Chronic pain (claudication pain, current left lung pain) Pertinent negatives: chronic opioid use and previous treatment for opioid use disorder Endocrine / Other + Infectious disease (current empyema, COVID 19 hopitalization Jun 2020, pne 2018) - pneumonia. Pertinent negatives: diabetes mellitus; thyroid disease; obesity (BMI >30); cancer history; rheumatological disease and transplanted organ Functional Capacity Comments: MONTEZ, LLE claudication, Review of Systems + chest pain (left sided chest discomfort with empyema admission) + easy bruising + bleeding problems (easy bleeding with plavix and elilquis) + chronic pain (claudication pain, current left lung pain) + numbness/tingling (left foot and left pinky finger) + hard of hearing (bilateral hearing aids-not using) + dentures/partials (permanent bridges) Pertinent negatives: productive cough; wheezing; SOB; recent cold/flu; fever; palpitations; orthopnea; PND; Sickle Cell disease/trait; previous transfusion; transfusion reaction; melena/hematochezia;syncope; dizziness; muscle weakness; vision loss; heartburn; nausea; dysphagia; diarrhea; chipped/loose teeth; abdominal pain; diaphoresis and no unexpected weight changeFoot swellin05-27-21 Art doppler. PAT Summary and Plans Cardiac risk classification of planned procedure: intermediate cardiac risk. Preoperative assessment status: complete. Initial preoperative evaluation discussed with: David Frausto MD Additional comments: Freddy Hill is a 70 y.o. male who is being evaluated prior to undergoing anintermediate cardiac risk surgery. Revised Cardiac Risk Index factors are (ischemic heart disease and preoperative creatinine > 2 mg/dL) for a total RCRI of 2 out of 6. Functional capacity is <4 METs (specifically:MONTEZ). Obstructive sleep apnea (ANDRZEJ) screening status is HIGH RISK due to known ANDRZEJ. Unable to tolerate CPAP-uses oxygen 2L for sleep and with exertion Blood bank needs for day of procedure: Type and Screen only Labs reviewed. Significant for K 5.4 and 5.2, T&S Yonathan negative, Na 130 Cl 98, creatinine 2.36, creat clearance 28.6, H&H 10.5/32.8, albumin 2.8 CARDIAC RHYTHM DEVICE SUMMARY 1. Device brand / type / location known: Yes 2. Cardiac Rhythm Device Communication Request form: Pending 3. Patient pacemaker dependent: Uncertain 4. Operation near cardiac rhythm device: Yes 5. Magnet positioning feasible for procedure: Uncertain-may be difficult 6. Device response to magnet: Unable to obtain record prior to surgery. >Called [employer] [facility] to be present for surgery in POD 3 at 12:40 ([phone]). Nga barnard for information about the surgery location Patient's COVID19 status is: Unexposed. The patient currently has no concerning symptoms of COVID19. . Patient's COVID-19 vaccination status is Fully vaccinated. Vaccination status verbally confirmedwith patient. Documentation of vaccination status to be confirmed on the day of surgery by the patient providing their COVID-19 Vaccination Record Card. . Plan for pre-procedure COVID19 testing: COVID19 testing was completed at [facility] prior to admission The patient is on clopidogrel therapy and has a history of Carotid artery stenosis, PAD and CAD. Due to the likely higher bleeding risk of this drug, we recommend switching the patient to aspirin therapy for the perioperative period. We recommend discontinuing clopidogrel for 7 days prior to the procedure and starting aspirin 81 mg daily at that time. The patient can be switched back to their original medication when the bleeding risk has decreased. Per [facility] record, last dose was 06-03-21. Please call the CPAP attending ([phone]) with any questions or to discuss alternative management plans. The patient is on oral anticoagulation therapy with apixaban (ELIQUIS) and is scheduled for a procedure with a planned/possible nerve block and/or is at low or intermediate risk for perioperative thrombosis. Estimated creatinine clearance is significantly impaired at 28.6 ml/min. ?? We recommend holding all doses of this anticoagulant for 4 days (96 hours) prior to the procedure. Therapeutic anticoagulation should be resumed post-operatively when the bleeding risk is acceptable. Alternative anticoagulation therapies can be used in the interim if acceptable. Per [facility] record, last dose was 06-06-21 Please call the CPAP attending ([phone]) to revisit risk assessment, with any questions, or to discuss alternative management plans.?? IPAP complete Preoperative evaluation performed by Akila Brody NP on 06/11/21 at 2:16 PM. . Patient Active Problem List Diagnosis ??? Cardiac pacemaker in situ ??? Empyema (CMS/HCC) (HCC) ??? PVD (peripheral vascular disease) (CMS/HCC) (HCC) ??? COPD (chronic obstructive pulmonary disease) (CMS/HCC) (HCC) ??? CKD (chronic kidney disease) stage 4, GFR 15-29 ml/min (CMS/HCC) (HCC) ??? Hyperkalemia ??? Hypertension Past Medical History: Diagnosis Date ??? Anemia ??? Arthritis ??? COPD (chronic obstructive pulmonary disease) (CMS/HCC) (HCC) ??? GERD (gastroesophageal reflux disease) ??? Hypertension Past Surgical History: Procedure Laterality Date ??? HERNIA REPAIR ??? INSERT / REPLACE / REMOVE PACEMAKER No Known Allergies Taking? Last Dose Start Date End Date Provider albuterol 2.5 mg /3 mL (0.083 %) nebulizer solution 05/05/21 -- [place] Kay MD albuterol HFA (PROVENTIL HFA,VENTOLIN HFA,PROAIR HFA) 90 mcg/actuation inhaler 04/06/21 -- Argentina Kay MD amLODIPine (NORVASC) 10 mg tablet 03/20/21 -- Argentina Kay MD apixaban (ELIQUIS) 2.5 mg tablet -- -- Argentina Kay MD atorvastatin (LIPITOR) 40 mg tablet 04/14/21 -- Argentina Kay MD carvediloL (COREG) 25 mg tablet 04/09/21 -- Argentina Kay MD cetirizine 10 mg capsule -- -- Argentina Kay MD cloNIDine (CATAPRES) 0.1 mg tablet 02/20/21 -- Provider, MD [place] clopidogreL (PLAVIX) 75 mg tablet 04/17/21 -- Provider, MD [place] doxepin (SINEquan) 25 mg capsule 03/10/21 -- Argentina Kay MD dupilumab (DUPIXENT) syringe -- -- Argentina Kay MD gabapentin (NEURONTIN) 300 mg capsule -- -- Provider, MD [place] hydroCHLOROthiazide (MICROZIDE) 12.5 mg capsule -- -- Provider, MD [place] lisinopriL (PRINIVIL,ZESTRIL) 20 mg tablet 02/24/21 -- Provider, MD [place] melatonin 5 mg capsule -- -- Provider, MD [place] multivitamin capsule -- -- ProviderArgentina MD omeprazole (PriLOSEC) 20 mg capsule 03/06/21 -- Argentina Kay MD Spiriva Respimat 2.5 mcg/actuation inhaler 04/21/21 -- Provider, MD [place] tamsulosin (FLOMAX) 0.4 mg extended release capsule 03/06/21 -- Provider, MD [place] traMADoL (ULTRAM) 50 mg tablet 04/08/21 -- Provider, MD [place] Current Facility-Administered Medications: ??? acetaminophen (TYLENOL) tablet 650 mg, 650 mg, oral, Q4H PRN, 650 mg at 06/11/21 08 OR [DISCONTINUED] acetaminophen (TYLENOL) 32 mg/mL oral solution 650 mg, 650 mg, feeding tube, Q4H PRN OR [DISCONTINUED] acetaminophen (TYLENOL) suppository 650 mg, 650 mg, rectal, Q4H PRN ??? albuterol 2.5 mg/0.5 mL nebulizer solution 2.5 mg, 2.5 mg, nebulization, TID PRN ??? amLODIPine (NORVASC) tablet 10 mg, 10 mg, oral, Daily, 10 mg at 06/11/21 08 ??? atorvastatin (LIPITOR) tablet 40 mg, 40 mg, oral, Daily, 40 mg at 06/11/21 08 ??? bisacodyL (DULCOLAX) suppository 10 mg, 10 mg, rectal, Daily PRN ??? bisacodyl EC (DULCOLAX EC) tablet 10 mg, 10 mg, oral, Daily PRN ??? carvediloL (COREG) tablet 37.5 mg, 37.5 mg, oral, BID, 37.5 mg at 06/11/21806 ??? cefepime (MAXIPIME) 2,000 mg/20 mL in sterile water (premix) 2,000 mg, 2,000 mg, intravenous, Q8H JUSTIN, Last Rate: 40 mL/hr at 06/11/21810, 2,000 mg at 06/11/21810 ??? cloNIDine (CATAPRES) tablet 0.1 mg, 0.1 mg, oral, BID, 0.1 mg at 06/11/21806 ??? doxepin (SINEquan) capsule 25 mg, 25 mg, oral, Nightly, 25 mg at 06/11/21 0034 ??? gabapentin (NEURONTIN) capsule 300 mg, 300 mg, oral, Daily PRN ??? [Held by Provider] hydroCHLOROthiazide (HYDRODIURIL) tablet 12.5 mg, 12.5 mg, oral, Daily ??? [Held by Provider] lisinopriL (PRINIVIL,ZESTRIL) tablet 20 mg, 20 mg, oral, Daily ??? ondansetron ODT (ZOFRAN-ODT) disintegrating tablet 4 mg, 4 mg, oral, Q6H PRN OR [DISCONTINUED] ondansetron (ZOFRAN) injection 4 mg, 4 mg, intravenous, Q6H PRN ??? pantoprazole DR (PROTONIX) extended release tablet 40 mg, 40 mg, oral, Daily, 40 mg at ??? polyethylene glycol (MIRALAX) packet 17 g, 17 g, oral, Daily PRN ??? ramelteon (ROZEREM) tablet 8 mg, 8 mg, oral, Nightly PRN ??? sodium chloride 0.9% flush 0.5-20 mL, 0.5-20 mL, intra-catheter, Q8H JUSTIN, 10 mL at 06/11/2112 ??? sodium chloride 0.9% flush 0.5-20 mL, 0.5-20 mL, intra-catheter, PRN, 10 mL at 06/11/21 0810 ??? sodium chloride 0.9% infusion, 75 mL/hr, intravenous, Continuous, Last Rate: 75 mL/hr at 06/11/21926, 75 mL/hr at 06/11/21926 ??? tamsulosin (FLOMAX) extended release capsule 0.4 mg, 0.4 mg, oral, Daily with dinner ??? traMADoL (ULTRAM) tablet 50 mg, 50 mg, oral, Q6H PRN, 50 mg at 06/11/21 0807 ??? umeclidinium (INCRUSE ELLIPTA) 62.5 mcg/actuation inhaler 62.5 mcg, 1 puff, inhalation, Daily (RT), 62.5 mcg at 06/11/21 0808 ??? [START ON 06/12/2021] vancomycin 1500 mg/515 mL in sodium chloride 0.9% (premix) 1,500 mg, 15 mg/kg, intravenous, Q24H Social History Tobacco Use Smoking Status Former Smoker ??? Quit date: 08/22/2009 ??? Years since quittin.8 Smokeless Tobacco Never Used Substance and Sexual Activity Alcohol Use Not on file Substance and Sexual Activity Drug Use Not on file Family History Problem Relation Age of Onset ??? Asthma Mother ??? Diabetes Mother ??? Hypertension Mother ??? Hypertension Father ??? Heart disease Father PAT Physical Exam Airway Exam: Mallampati: I TM distance: 3.5 Cardiovascular Exam: Rate: regular Rhythm: regular (Edema to wrists recently-better with elevation Left chest [employer] PM ) Pulmonary Exam: LCTA, bilat Decreased Dental Exam: Permanent retainer and otherwise appears intact (Permanent bridges) Skin Exam: Skin is warm. Abdominal exam: Abdomen is soft. Bowel sounds are present. Current state: Patient's current state is cooperative and interactive. Line/Drains/Tubes/Devices: Lines in situ: Additional comments: PIV O2 @ 2L Vitals: 06/11/21 0441 06/11/21 0752 06/11/21 1129 BP: 114/60 135/62 121/62 Pulse: 81 92 79 Resp: 16 16 18 Temp: 36.7 ??C (98.1 ??F) 36.8 ??C (98.2 ??F) 36.4 ??C (97.5 ??F) SpO2: 97% 98% 92% Relevant diagnostics: ECG(s): 06-11-21 Atrial-sensed ventricular-paced rhythm rate 83 bpm Echocardiogram(s): N/A Stress test(s): N/A Cardiac catheterization(s): N/A PFT(s): N/A Vascular studies: 05-27-21 Carotid dopplers 05-27-21 Art doppler 06-04-21 Venous doppler No lower extremity DVT bilaterally Other: Pacemaker interrogation 06-10-21 CXR The current study is compared with the prior radiograph dated CT dated 06/08/2021. Left subclavian atrioventricular pacemaker is noted, the ventricular lead is near the tricuspid valve. Loculated left effusion/empyema appears similar in configuration to CT. Associated patchy opacities may represent atelectasis or pneumonia. The right lung is clear with no pleural effusion. There is no pneumothorax. Cardiomediastinal silhouette is normal and unchanged. 06-08-[address]-Stable moderate sized loculated left pleural effusion. Worsened right pleural effusion. Peripheral airspace opacities in left lower lobe and lingula, likely pneumonia and atelectasis. Severe emphysema. Mild mediastinal and left hilar lymphadenopathy, likely reactive PT: No results found for requested labs within last 720 hours. INR: No results found for requested labs within last 720 hours. APTT: No results found for requested labs within last 720 hours. Hgb A1C: No results found for requested labs within last 720 hours. CBC RBC: 06/10/2021: 3.59 M/cumm (L) RDW: No results found for requested labs within last 720 hours. MCHC: 06/10/2021: 32.0 g/dL (L) MCH: 06/10/2021: 29.2 pg MCV: 06/10/2021: 91.4 fL Hct: 06/10/2021: 32.8 % (L) Hgb: 06/10/2021: 10.5 g/dL (L) WBC: 06/10/2021: 32.0 K/cumm (H) MPV: 06/10/2021: 11.4 fL Platelets: 06/10/2021: 186 K/cumm RDW CV: 06/10/2021: 13.9 % RDW Sd: 06/10/2021: 46.8 fL BMP Glucose: 06/11/2021: 76 mg/dL Calcium: 06/11/2021: 8.6 mg/dL Sodium: 06/11/2021: 130 mmol/L (L) Potassium: 06/11/2021: 5.2 mmol/L (H) CO2: 06/11/2021: 26 mmol/L Chloride: 06/11/2021: 96 mmol/L (L) BUN: 06/11/2021: 43 mg/dL (H) Creatinine: 06/11/2021: 2.36 mg/dL (H) DOS Physical Exam Medical history, medications, and allergies reviewed. Attestation: This PAT evaluation 06/11/2021. Airway Exam: Mallampati: II Cervical ROM: FROM TM distance: >4 Jaw ROM: full Cardiovascular Exam: Rate: regular Pulmonary Exam: Coarse breath sounds, bilat Decreased breath sounds EENT Exam: trachea midline Dental Exam: Appears intact Abdominal Exam: Abdomen is soft. Current state: Patient's current state is cooperative and interactive. 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 Induction: Induction: intravenous. Postoperative Plan: Postoperative administration opioids intended. No postoperative mechanical ventilation intended. Patient's planned disposition post procedure is Obs. unit. Planned trial extubation. Informed Consent: Discussed plan with fellow and resident. Anesthesia plan and risks discussed with patient. Consent and Attending signature: I and/or my designee have discussed the anesthesia plan, benefits, possible alternatives, parental presence at time of induction (if indicated), and clinically relevant risks that may include dental injury, unintentional awareness, and/or other complications. The patient and/or parent/legal guardian understand, and agree to proceed. All questions answered. documented in this encounter Plan of Treatment Not on file documented as of this encounter Procedures Procedure Name Priority Date/Time Associated Diagnosis Comments ANESTHESIA ARTERIAL LINE PLACEMENT Routine 06/12/2021 3:09 PM CDT PERIPHERAL LINE Routine 06/12/2021 3:09 PM CDT ANESTHESIA INTUBATION Routine 06/12/2021 3:08 PM CDT documented in this encounter Results * Arterial Line (06/12/2021 3:09 PM CDT) Brooklyn Herrera MD - 06/12/2021 3:09 PM CDT Brooklyn Gruber MD ? 06/12/2021 ??3:10 PM Arterial Line Patient location: OR Indication: continuous blood pressure monitoring and blood sampling needed Staff: Supervising provider: Talon Resendiz MD Placed by: Other staff: Benny Carpenter MD Procedure prep: Prep solution: chlorhexadine/alcohol Prep: provider hat/mask and sterile gloves Arterial line: Catheter size: 20 gauge Catheter length: 1 and 3/4 inch Catheter type: wire-guided catheter Seldinger technique: yes Laterality: left Site: radial artery Line secured: tape and Tegaderm Results: good waveform and good blood return Number of attempts: 3 Assessment: Events: patient tolerated procedure well with no complications Odette Cook MD ANESTHESIA ORDERABLES F inal Result * Peripheral IV Catheter (06/12/2021 3:09 PM CDT) Brooklyn Herrera MD - 06/12/2021 3:09 PM CDT Brooklyn Gruber MD ? 06/12/2021 ??3:09 PM Peripheral IV Catheter Patient location: OR Staff: Placed by: Fellow: Odette Cook MD Preprocedure prep: Prep solution: alcohol PPE: gloves PIV line: Laterality: right Site: hand Catheter size: 18 g Technique: anatomical landmarks and direct visualization Procedure details: good blood return and occlusive dressing applied Number of attempts: 1 Assessment: Events: patient tolerated procedure well with no complications Odette Cook MD ANESTHESIA ORDERABLES F inal Result * Airway (06/12/2021 3:08 PM CDT) Narrative Brooklyn Gruber MD - 06/12/2021 3:08 PM CDT Brooklyn Gruber MD ? 06/12/2021 ??3:09 PM Airway Patient location: OR Urgency: elective Indications for airway management: anesthesia Difficult airway: no Staff: Supervising provider: Talon Resendiz MD Placed by: Resident: Brooklyn Gruber MD Emergent airway documentation: Risks and benefits discussed: yes Consent obtained: yes Consent given by: patient Airway prep: Preoxygenated: yes Patient position: sniffing MILS maintained throughout: yes Mask difficulty assessment: 1 - vent by mask Spontaneous ventilation during airway: absent Sedation level during airway: GA Final airway details: Final airway type: endotracheal airway Tube type: ETT - double lumen left ETT double lumen: 39 fr Cuffed: yes Technique used for successful ETT placement: video laryngoscopy Insertion site: oral Blade type: Ravinder Video blade type: CMAC Blade size: 4 Cormack-Lehane (video): grade I - full view of glottis Cuff inflated with: air Placement verified by: auscultation and CO2 detection Airway secured with: silk tape Number of attempts: 1 Planned trial extubation: yes Odette Cook MD ANESTHESIA ORDERABLES F inal Result documented in this encounter Visit Diagnoses Not on filedocumented in this encounter Administered Medications Inactive Administered Medications - up to 3 most recent administrations Medication Order MAR Action Action Date Dose Rate Site dexAMETHasone (DECADRON) 4 mg/mL injection intravenous, Administer over 2 Minutes, As needed, Starting on Tue06/12/21 at 1625, Anesthesia Intra-op Given 06/12/2021 4:25 PM CDT 4 mg fentaNYL (SUBLIMAZE) preservative free injection intravenous, As needed, Starting on Tue06/12/21 at 1421, Anesthesia Intra-op Given 06/12/2021 4:33 PM CDT 50 mcg Given 06/12/2021 4:30 PM CDT 25 mcg Given 06/12/2021 4:27 PM CDT 25 mcg glycopyrrolate (ROBINUL) injection intravenous, Administer over 1 Minutes, As needed, Starting on Tue06/12/21 at 1621, Anesthesia Intra-op Given 06/12/2021 4:51 PM CDT 0.4 mcg Given 06/12/2021 4:21 PM CDT 0.4 mcg Lactated Ringer's (LR) infusion 30 mL/hr, intravenous, Continuous, Starting on Tue06/12/21 at 1400, Pre-Op New Bag 06/12/2021 1:48 PM CDT lidocaine (cardiac) (XYLOCAINE) preservative free injection intravenous, As needed, Starting on Tue06/12/21 at 1421, Anesthesia Intra-op, Indications: Ventricular ArrhythmiasIndications:Ventricular Arrhythmias Given 06/12/2021 2:21 PM CDT 100 mg neostigmine injection intravenous, Administer over 3 Minutes, As needed, Starting on Tue06/12/21 at 1620, Anesthesia Intra-op Given 06/12/2021 4:51 PM CDT 2 mg Given 06/12/2021 4:20 PM CDT 3 mg norepinephrine (LEVOPHED) injection intravenous, As needed, Starting on Tue06/12/21 at 1436, Anesthesia Intra-op Given 06/12/2021 4:38 PM CDT 16 mcg Given 06/12/2021 4:37 PM CDT 16 mcg Given 06/12/2021 4:31 PM CDT 32 mcg norepinephrine in 0.9% sodium chloride (LEVOPHED) 8,000 mcg/250 mL (32 mcg/mL) infusion (premix) 0-2 mcg/kg/min ? 94.6 kg (0-354.75 mL/hr), 32 mcg/mL, intravenous, Titrated, Starting on Tue06/12/21 at 1545, Until Tue06/14/21 at 0945, Initial rate: 0.05 mcg/kg/min, Titrate: Up/Down, Titrate by: 0.01 mcg/kg/min, Every: 2 minutes, Goal: MAP, MAP Goal: 65-75 mmHg, Routine Rate/Dose Change 06/12/2021 4:25 PM CDT 0.05 mcg/kg/min 8.869 mL/hr Rate/Dose Change 06/12/2021 4:10 PM CDT 0.08 mcg/kg/min 14 .19 mL/hr Rate/Dose Change 06/12/2021 3:50 PM CDT 0.1 mcg/kg/min 17. 738 mL/hr ondansetron (ZOFRAN) injection intravenous, Administer over 2 Minutes, As needed, Starting on Tue06/12/21 at 1625, Anesthesia Intra-op Given 06/12/2021 4:25 PM CDT 4 mg phenylephrine (GATO-SYNEPHRINE) 1 mg/10 mL (100 mcg/mL) in sodium chloride 0.9% (premix) intravenous, As needed, Starting on Tue06/12/21 at 1420, Anesthesia Intra-op Given 06/12/2021 3:27 PM CDT 200 mc g Given 06/12/2021 2:42 PM CDT 200 mcg Given 06/12/2021 2:35 PM CDT 200 mcg propofoL (DIPRIVAN) 10 mg/mL IV intravenous, Continuous PRN, Starting on Tue06/12/21 at 1421, Anesthesia Intra-op Rate/Dose Change 06/12/2021 4:11 PM CDT 25 mcg/kg/min 14.19 mL/hr Rate/Dose Change 06/12/2021 3:47 PM CDT 50 mcg/kg/min 28.3 8 mL/hr Rate/Dose Change 06/12/2021 2:36 PM CDT 100 mcg/kg/min 56. 76 mL/hr propofoL (DIPRIVAN) 10 mg/mL IV intravenous, As needed, Starting on Tue06/12/21 at 1421, Anesthesia Intra-op Given 06/12/2021 3:03 PM CDT 50 mg Given 06/12/2021 2:47 PM CDT 50 mg Given 06/12/2021 2:21 PM CDT 100 mg rocuronium (ZEMURON) injection intravenous, As needed, Starting on Tue06/12/21 at 1421, Anesthesia Intra-op Given 06/12/2021 2:21 PM CDT 40 mg sodium bicarbonate 8.4 % (1 mEq/mL) injection intravenous, Administer over 5 Minutes, As needed, Starting on Tue06/12/21 at 1621, Anesthesia Intra-op Given 06/12/2021 4:21 PM CDT 100 mEq sodium chloride 0.9% infusion 10 mL/hr, intravenous, Continuous, Starting on Chiara 06/11/21 at 0900 New Bag 06/13/2021 9:16 PM CDT 75 mL/hr 75 mL/hr New Bag 06/13/2021 9:11 AM CDT 75 mL/hr 75 mL/hr Rate/Dose Verify 06/12/2021 1:48 PM CDT 75 mL/h r documented in this encounter Care Teams Phone Circuit Operator Relationship Specialty Start Date End Date Ross Espinosa MD [address] [place] [address] PCP - General 06/11/21 03/02/22 documented as of this encounter
--- OUTSIDE RECORDS SUMMARY | 2024-09-12 15:48 | XMS_ITS | Encounter Summary ---
Author Organization [facility] Healthcare Address [address] [place] [address] Care Team Providers Care Dental Practitioner Name Role Phone Unknown, Notinfile Primary Care Provider Unavail able Encounter Details Date Type Department Care Team (Latest Contact Info) Description 06/10/2021 10:47 PM CDT Hospital Encounter [facility] [address] [place] [address] [phone] Discharge Disposition: Discharge to home or self care Social History Tobacco Use Types Packs/Day Years Used Date Smoking Tobacco: Former Cigarettes Q uit: 08/22/2009 Smokeless Tobacco: Never Sex and Gender Information Value Date Recorded Sex Assigned at Not on file Legal Sex Male 1:43 PM CDT Gender Identity Male 08/12/2022 2:14 PM 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 ??There will be no report generated by a [facility] Radiologist. Narrative [facility] - 06/10/2021 10:47 PM CDT EXAMINATION: ??Images For Reference Purposes Only us Valarie Edwards MD IMG US PROCEDURES Final R esult [facility] documented in this encounter Visit Diagnoses Not on filedocumented in this encounter Care Teams Dental Practitioner Relationship Specialty Start Date End Date Unknown, Notinfile PCP - General 06/10/21 06/10/21 documented as of this encounter
--- OUTSIDE RECORDS SUMMARY | 2024-09-12 15:48 | XMS_ITS | Encounter Summary ---
Author Organization [facility] Healthcare Address [address] [place] [address] Care Team Providers Care Quill Picking Machine Operator Name Role Phone Unknown, Notinfile Primary Care Provider Unavail able Encounter Details Date Type Department Care Team (Latest Contact Info) Description 06/10/2021 10:49 PM CDT Hospital Encounter [facility] [address] [place] [address] [phone] Discharge Disposition: Discharge to home or self care Social History Tobacco Use Types Packs/Day Years Used Date Smoking Tobacco: Former Cigarettes Q uit: 08/22/2009 Smokeless Tobacco: Never Sex and Gender Information Value Date Recorded Sex Assigned at Not on file Legal Sex Male 1:43 PM CDT Gender Identity Male 08/12/2022 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 ??There will be no report generated by a [facility] Radiologist. Narrative [facility] - 06/10/2021 10:49 PM CDT EXAMINATION: ??Images For Reference Purposes Only us Valarie Edwards MD IMG NM PROCEDURES Final R esult [facility] documented in this encounter Visit Diagnoses Not on filedocumented in this encounter Care Teams Quill Picking Machine Operator Relationship Specialty Start Date End Date Unknown, Notinfile PCP - General 06/10/21 06/10/21 documented as of this encounter
--- OUTSIDE RECORDS SUMMARY | 2024-09-12 15:48 | XMS_ITS | Encounter Summary ---
Author Organization [facility] Healthcare Address [address] [place] [address] Care Team Providers Care Grader Tender Name Role Phone Ross Espinosa MD Primary Care Provider [phone] Encounter Details Date Type Department Care Team (Late st Contact Info) Description 06/12/2021 1:05 PM CDT - 06/12/2021 4:35 PM CDT Surgery [facility] Operating Room [address] [place] [address] Benny Carpenter MD [address] [place], [place] [id number] THORACOTOMY, decortication Surgery Details Date/Time Status Location OR Service Patient Class Case Class Case Type Trauma Case? 06/12/2021 1:05 PM Posted [facility] OR POD 3 310 Cardiothoracic Inpatient Time Sensitive - 1 Week Panel 1 Procedure [facility] Anes Op Region Wound Class Comments THORACOTOMY, decortication Left General Chest Class II - Clean Contaminated Surgeon Surgeon Role Service Panel Benny Carpenter MD Primary Cardioth oracic 1 Pradeep Palma MD Resident - Assisting Gene ral Surgery 1 documented in this encounter Social History Tobacco Use Types Packs/Day Years Used Date Smoking Tobacco: Former Cigarettes Q uit: 08/22/2009 Smokeless Tobacco: Never Sex and Gender Information Value Date Recorded Sex Assigned at Not on file Legal Sex Male 1:43 PM CDT Gender Identity Male 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 Sexual Orientation Not on file documented as of this encounter Last Filed Vital Signs Vital Sign Reading Time Taken Comments Blood Pressure 124/54 06/12/2021 11:00 AM CDT Pulse 83 06/12/2021 1:19 PM CDT Temperature 36.7 ??C (98.1 ??F) 06/12/2021 1:19 PM CD T Respiratory Rate 20 06/12/2021 1:19 PM CDT Oxygen Saturation 97% 06/12/2021 1:19 PM CDT Inhaled Oxygen Concentration - - Weight 94.6 kg (208 lb 8 oz) 06/10/2021 8:51 PM CDT Height 172.7 cm (5' 8) 06/10/2021 8:51 PM CDT Body Mass Index 31.7 06/10/2021 8:51 PM CDT documented in this encounter Discharge Summaries * Emely Moss, COMMUNITY LIAISON - 06/23/2021 7:55 AM CDT Inpatient Discharge Summary BRIEF OVERVIEW Admitting Provider: Benny López MD Discharge Provider: Benny Carpenter MD Primary Care Physician at Discharge: Ross Espinosa MD [phone] Admission Date: 06/10/2021 Discharge Date: 06/23/2021 Admission Location: [facility] Problems/Diagnoses: Principal Problem: Empyema (CMS/HCC) ([facility]) Active Problems: Cardiac pacemaker in situ PVD (peripheral vascular disease) ([facility]/H[facility]) ([facility]) COPD (chronic obstructive pulmonary disease) ([facility]/HCC) ([facility]) CKD (chronic kidney disease) stage 4, GFR 15-29 ml/min (CMS/HCC) ([facility]) Hypertension Anemia ALFREDO (acute kidney injury) (CMS/HCC) ([facility]) Resolved Problems: CKD (chronic kidney disease) stage 3, GFR 30-59 ml/min ([facility]) Hyperkalemia DETAILS OF HOSPITAL STAY Presenting Problem/History [...] Home Health and Infusion Primary disciplines requested: Half-Way Physical Therapy Home Health Services: Strengthening Exercises [...] Instructions: Shower -You may shower Home Infusion: [facility] Home Infusion ([phone]) for home iv antibiotics, half-way and physical therapy. Please call the number [...] AM Josiah Lay MD MG CAR ELBA MG Emily Contact Information for Follow-ups [facility] Home Care Services Specialty: Home Health and Hospice [address] [facility] [address] Next Steps: Follow up Questions: Service Line: Home Health and Infusion Primary disciplines requested: Half-Way Physical Therapy Home Health Services: Strengthening Exercises [...] care prior to your F/U appointment is [phone] If you have questions/concerns that can not wait until business hours ([id number]-Tuesday) and it is after 6PM, please call the corner cutter machine operator at [phone] and ask for the thoracic surgery resident conductor and engineer. If you are short of breath, have chest pain, bleeding or other emergent issues call [phone]. Medication Recommendations: Dru. Ceftriaxone 2g IV q24h [...] No Follow Up Plan: fax results to [phone], follow up with Dr. Molina/any in 2 weeks , After discharge additional questions can be directed to the clinic at [phone] and Patient has been educated about the [...] with antibacterial soap and use alcohol-based hand deputy brand inspector before touching your catheter or changing wound [...] Information Infectious Diseases Clinic : [facility] [address] [place] [address]?? [phone] or Toll-free ? Important Information for Healthcare Providers: Antibiotics recommended : ceftriaxone, metronidazole, doxycyline Anticipated stop date for IV antibiotics: to be determined by infectious disease doctor Infectious disease physician saw the patient during hospital admission: Dr. Molina ? Recommended Laboratory Monitoring: [ x ] CBC w/differential and CMP weekly ?? ALL RESULTS SHOULD BE FAXED TO INFECTIOUS DISEASE CLINIC AT: [phone] * Discharge Instr - Other Orders* Elizabeth Mars, MARY - 06/22/2021 12:24 PM CDT Home Infusion: [facility] Home Infusion ([phone]) for home iv antibiotics, half-way and physical therapy. Please call the number provided if you have not heard from a nurse with 24 hours of being discharged to home. [facility] [place] to provide nursing P [phone] documented in this encounter Medications at Time [...] (two) times a day 60 capsule 06/23/2021 metroNIDAZOLE (FLAGYL) 500 mg tabletIndication s:empyema Take [...] Destination Discharge to home, home health skilled retirement CARE NURSING documented in this encounter Progress [...] #1: Home Infusion Home Care Agency Name [facility] Home Infusion Home Care Agency Home Care Agency Contact Spoken to [facility] Order Faxed to [facility] Discharge Additional Assistance Does the patient [...] Edited by: Valarie Edwards MD at 06/11/2021 4592 ?? Interval History.: Urinary retention with 700 [...] Talon Resendiz MD, 2.5 mg at 06/15/21 7642 ??? [Held by Provider] amLODIPine (NORVASC) tablet [...] Ward MD, 8 mg at 06/13/212109 ??? senna-docusate (PERICOLACE) 8.6-50 mg per tablet 1 tablet, 1 tablet, oral, BID, Samra Hurtado NP, 1 tablet at 06/17/21 0953 ??? sodium chloride 0.9% flush 0.5-20 mL, 0.5-20 mL, intra-catheter, Q8H JUSTINLouie Connor Patrick, MD, 10 mL at 06/18/21 0647 ??? sodium chloride 0.9% flush 0.5-20 mL, 0.5-20 mL, intra-catheter, PRN, Pradeep Plama MD, 10 mL at 06/11/21 0810 ??? [...] Renal Diet effective now Question Answer Comment ([facility]) Diet type Regular ?? ([facility]) Diet type Restricted ?? Renal: Renal ?? [...] only and have not been reviewed by [facility]. There will be no report generated by a [facility] Radiologist. ?? [place] Outside Reference ?? Result Date: 06/10/2021 These images are for Reference purposes only and have not been reviewed by [facility]. There will be no report generated by a [facility]iologist. ?? XR Outside Reference ?? Result Date: 06/10/2021 These images are for Reference purposes only and have not been reviewed by [facility]. There will be no report generated by a [facility]iologist. ?? XR Outside Reference ?? Result Date: 06/10/2021 These images are for Reference purposes only and have not been reviewed by [facility]. There will be no report generated by a [facility] Radiologist. ?? CT Body Outside Consult ?? [...] images may or may not represent the mentasta source data set and thus may contain changes that may lower the accuracy of this second-opinion interpretation. Electronically signed by: Bartolome Kathleen M.D. , PHD ?? CT Body Outside Reference ?? Result Date: 06/10/2021 These images are for Reference purposes only and have not been reviewed by [facility]. There will be no report generated by a [facility]iologist. ?? [place] Outside Reference ?? Result Date: 06/10/2021 These images are for Reference purposes only and have not been reviewed by [facility]. There will be no report generated by a [facility]iologist. ? Assessment/Plan ?? ALFREDO (acute kidney injury) (CMS/HCC) (HCC) Assessment [...] kidney disease) stage 4, GFR 15-29 ml/min ([facility]) ([facility]) Assessment & Plan At time of admission creat baseline 2.5 - renal following - Avoid other nephrotoxic medications - Monitor labs COPD (chronic obstructive pulmonary disease) ([facility]) ([facility]) Assessment & Plan Wears 2L O2 overnight, has ANDRZEJ - continue home inhaler PVD (peripheral vascular disease) ([facility]) ([facility]) Assessment & Plan S/p peripheral artery angioplasty with stent placement x3. Takes Plavix at home. According to OSH records, last dose was 06/03. - hold Plavix Cardiac pacemaker in situ Assessment & Plan 2/2 symptomatic bradycardia, second degree AV block - on Eliquis (last dose 06/06), unknown why? - hold AC * Empyema ([facility]) ([facility]) Assessment & Plan Empyema without systemic manifestations WBC: 13.5, afebrile. OSH CT shows small to moderate loculated pleural effusion. - s/p L thoracotomy and decortication on 06/12 - he has progressed well and will be going home in AM - IV antibiotics Emely Moss [facility]- Thoracic Surgery [facility] ? For patients or family members viewing this note through [employer] programs: This note was written as a [...] treatment team and contact the PT or APPLICATION INTEGRATION SPECIALIST currently assigned to this patient. If a physical therapy clinician is not assigned to this patient, please call [phone]. 06/22/21 1144 PT Last Visit Session Type [...] Edited by: Valarie Edwards MD at 06/11/2021 6437 ?? Interval History.: NAEO. Continued dysuria this AM. Urine cultures still not speciated. ? Objective Medications: ?? Current Facility-Administered Medications: ??? acetaminophen (TYLENOL) tablet 1,000 mg, 1,000 mg, oral, Q6H Genesis ANDERSON Amanda Leigh, NP, 1,000 mg at 06/19/21 0139 ??? albuterol 2.5 mg/0.5 mL nebulizer solution 2.5 mg, 2.5 mg, nebulization, TID PRN (RT), Talon Resendiz MD, 2.5 mg at 06/15/21 5826 ??? [Held by Provider] amLODIPine (NORVASC) tablet [...] Ward MD, 8 mg at 06/13/212109 ??? senna-docusate (PERICOLACE) 8.6-50 mg per tablet [...] ANDERSON Connor Patrick, MD, 10 mL at 06/17/21 [...] Renal Diet effective now Question Answer Comment ([facility]) Diet type Regular ?? ([facility]) Diet type Restricted ?? Renal: Renal ?? [...] is normal and unchanged. Dictated by: Ranulfo Serge Tyrese Marciano, M.D. The radiology attending physician has personally reviewed this study, and had reviewed and/or editedthis written report and agrees with it. Electronically signed by: Saniya Tapia M.D. ?? US Outside Reference ?? Result Date: 06/10/2021 These images are for Reference purposes only and have not been reviewed by [facility]. There will be no report generated by a [facility]iologist. ?? US Outside Reference ?? Result Date: 06/10/2021 These images are for Reference purposes only and have not been reviewed by [facility]. There will be no report generated by a [facility]iologist. ?? XR Outside Reference ?? Result Date: 06/10/2021 These images are for Reference purposes only and have not been reviewed by [facility]. There will be no report generated by a [facility]iologist. ?? XR Outside Reference ?? Result Date: 06/10/2021 These images are for Reference purposes only and have not been reviewed by [facility]. There will be no report generated by a [facility] Radiologist. ?? CT Body Outside Consult ?? [...] images may or may not represent the mentasta source data set and thus may contain changes that may lower the accuracy of this second-opinion interpretation. Electronically signed by: Bartolome Kathleen M.D. , PHD ?? CT Body Outside Reference ?? Result Date: 06/10/2021 These images are for Reference purposes only and have not been reviewed by [facility]. There will be no report generated by a [facility]iologist. ?? NM Outside Reference ?? Result Date: 06/10/2021 These images are for Reference purposes only and have not been reviewed by [facility]. There will be no report generated by a [facility]iologist. ? Assessment/Plan ?? ALFREDO (acute kidney injury) ([facility]) ([facility]) Assessment & Plan -per renal: likely multifactorial. [...] kidney disease) stage 4, GFR 15-29 ml/min ([facility]) ([facility]) Assessment & Plan At time of admission creat baseline 2.5 - renal following - Avoid other nephrotoxic medications - Monitor labs ?? COPD (chronic obstructive pulmonary disease) ([facility]) ([facility]) Assessment & Plan Wears 2L O2 overnight, has ANDRZEJ - continue home inhaler ?? PVD (peripheral vascular disease) ([facility]) ([facility]) Assessment & Plan S/p peripheral artery angioplasty with stent placement x3. Takes Plavix at home. According to OSH records, last dose was 06/03. - hold Plavix ?? Cardiac pacemaker in situ Assessment & Plan 2/2 symptomatic bradycardia, second degree AV block - on Eliquis (last dose 06/06), unknown why? - hold AC ?? * Empyema ([facility]) ([facility]) Assessment & Plan Empyema without??systemic manifestations WBC: [...] or family members viewing this note through [employer] programs: This note was written as a [...] treatment team and contact the PT or APPLICATION INTEGRATION SPECIALIST currently assigned to this patient. If a physical therapy clinician is not assigned to this patient, please call [phone]. 06/20/21 1426 PT Last Visit Session Type [...] Edited by: Valarie Edwards MD at 06/11/2021 0705 ?? Interval History:no issues overnight. Looks and feels good this AM. Cont rehab. Waiting for placement. Complains of burning urination and diarrhea since yesterday ? Objective Medications: ?? Current Facility-Administered Medications: ??? acetaminophen (TYLENOL) tablet 1,000 mg, 1,000 mg, oral, Q6H JUSTIN, Samra Hurtado NP, 1,000 mg at 06/19/21 [...] mg, 2,000 mg, intravenous, Q24H JUSTIN, Emely Moss, SHASHANK, 2,000 mg at 06/18/21 0935 ??? [Held [...] patch 2 patch, 2 patch, transdermal, Daily, SatValarie jiménez MD, Medication Removed at 06/18/212157 ??? linezolid (ZYVOX) tablet 600 mg, 600 mg, oral, BID, Emely Moss NP, 600 mg at 06/18/212151 ??? magnesium sulfate 2 g/50 mL in water (premix) 2 g, 2 g, intravenous, Once, Emely Moss NP ??? metroNIDAZOLE (FLAGYL) tablet 500 mg, 500 mg, oral, TID, Emely Moss NP, 500 mg at 06/18/21 2152 ??? ondansetron ODT (ZOFRAN-ODT) disintegrating tablet 4 [...] JUSTIN, Pradeep Palma MD, 10 mL at 06/17/212038 ??? sodium chloride 0.9% flush 0.5-20 mL, [...] Renal Diet effective now Question Answer Comment ([facility]) Diet type Regular ?? ([facility]) Diet type Restricted ?? Renal: Renal ?? [...] mmol/L 105 100 102 CO2 mmol/L 28 29 BUN SERUM mg/dL 39* 45* 54* [...] only and have not been reviewed by [facility]. There will be no report generated by a [facility] Radiologist. ?? US Outside Reference ?? Result Date: 06/10/2021 These images are for Reference purposes only and have not been reviewed by [facility]. There will be no report generated by a [facility]iologist. ?? XR Outside Reference ?? Result Date: 06/10/2021 These images are for Reference purposes only and have not been reviewed by [facility]. There will be no report generated by a [facility] Radiologist. ?? XR Outside Reference ?? Result Date: 06/10/2021 These images are for Reference purposes only and have not been reviewed by [facility]. There will be no report generated by a [facility] Radiologist. ?? CT Body Outside Consult ?? [...] images may or may not represent the mentasta source data set and thus may contain changes that may lower the accuracy of this second-opinion interpretation. Electronically signed by: Bartolome Kathleen M.D. , PHD ?? CT Body Outside Reference ?? Result Date: 06/10/2021 These images are for Reference purposes only and have not been reviewed by [facility]. There will be no report generated by a [facility] Radiologist. ?? NM Outside Reference ?? Result Date: 06/10/2021 These images are for Reference purposes only and have not been reviewed by [facility]. There will be no report generated by a [facility]iologist. ? Assessment/Plan ?? ALFREDO (acute kidney injury) (CMS/HCC) ([facility]) Assessment & Plan -per renal: likely multifactorial. [...] kidney disease) stage 4, GFR 15-29 ml/min ([facility]) ([facility]) Assessment & Plan At time of admission creat baseline 2.5 - renal following - Avoid other nephrotoxic medications - Monitor labs ?? COPD (chronic obstructive pulmonary disease) ([facility]) ([facility]) Assessment & Plan Wears 2L O2 overnight, has ANDRZEJ - continue home inhaler ?? PVD (peripheral vascular disease) ([facility]) ([facility]) Assessment & Plan S/p peripheral artery angioplasty with stent placement x3. Takes Plavix at home. According to OSH records, last dose was 06/03. - hold Plavix ?? Cardiac pacemaker in situ Assessment & Plan 2/2 symptomatic bradycardia, second degree AV block - on Eliquis (last dose 06/06), unknown why? - hold AC ?? * Empyema ([facility]) ([facility]) Assessment & Plan Empyema without??systemic manifestations WBC: [...] or family members viewing this note through [employer] programs: This note was written as a [...] who was a/w empyema and transferred from [facility] for further Mx I/s/o worsening leukocytosis (42 k ). Underwent thoracotomy and decortication on 06/12. Received abx both at OSH and here. vanc levels elevated. Developed ALFREDO. ?? Renal c/s for ALFREDO ? 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 He used to see a group fitness instructor before, does not remember name. PCP currently monitoring renal function He recently moved to [place]. . Used to get all his care in [place] at [facility]. No h/o renal stones. He had renal failure once in 2013 at the time of hip replacement. He Was told his kidneys stopped working for 1 week. 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 He had recent labs at [facility] last month He takes lasix as needed [...] by Provider] amLODIPine, 10 mg, oral, Daily [Oct] atorvastatin, 40 mg, oral, Daily [OCT Hold] carvediloL, 6.25 mg, oral, BID [OCT Hold] cefTRIAXone, 2,000 mg, intravenous, Q24H JUSTIN [Held by Provider] cloNIDine, 0.1 mg, oral, BID [Oct] doxepin, 25 mg, oral, Nightly [OCT Hold] enoxaparin, 30 mg, subcutaneous, Daily-2100 [Oct] lactulose, 20 g, oral, TID [Oct] lidocaine, 2 patch, transdermal, Daily [OCT Hold] linezolid, 600 mg, oral, BID [OCT Hold] metroNIDAZOLE, 500 mg, oral, TID [OCT Hold] pantoprazole DR, 40 mg, oral, Daily [OCT Hold] polyethylene glycol, 17 g, oral, Daily [Oct] senna-docusate, 1 tablet, oral, BID [Oct] sodium chloride 0.9%, 0.5-20 mL, intra-catheter, Q8H JUSTIN [OCT Hold] sodium chloride 0.9%, 0.5-20 mL, intra-catheter, Q8H JUSTIN [OCT Hold] tamsulosin, 0.4 mg, oral, Daily with dinner [Oct] umeclidinium, 1 puff, inhalation, Daily [OCT Hold] albuterol, 2.5 mg, 2.5 mg at 06/15/21 2252 ??? [OCT Hold] bisacodyl EC, 10 mg ??? [OCT Hold] calcium carbonate, 200 mg of elemental calcium, 500 mg at 06/13/217 ??? [OCT Hold] HYDROmorphone, 0.2 mg ??? lidocaine PF, , 10 mL at 06/19/21 1655 ??? [OCT Hold] ondansetron ODT, 4 mg, 4 mg at 06/19/21 0938 OR [DISCONTINUED] ondansetron, 4 mg ??? [OCT Hold] oxyCODONE, 5 mg, 5 mg at 06/19/21 0931 ??? [OCT Hold] ramelteon, 8 mg, 8 mg at 06/13/21 2110 ??? [OCT Hold] sodium chloride 0.9%, 0.5-20 mL, 10 mL at 06/11/21 0810 ??? [MAR Hold] sodium chloride 0.9%, 0.5-20 mL, 10 [...] renal function - no acute need for CENTRIFUGAL CASTING MACHINE TENDER - Cr is downtrending, continuing to improve. - needs OP FU with nephrology. Pt states that he will be find a group fitness instructor at [facility], with the help of his PCP. - ok for discharge from renal stand point ?? # Hyperkalemia - resolved Discussed with Dr. Perez We will sign off at this time. Please do not hesitate to reach out to us with questions/ concerns. Filippo Martinez Nephrology Fellow Consult 1 Service Contact (phone): [phone] After hours and weekends: please page [phone] Be advised that voice recognition software was [...] previous visit. .. Assessment /Plan * Empyema ([facility]) ([facility]) Assessment & Plan The patient is a [...] medication. Please contact the Team 3 ID COMMUNITY LIAISON or the Attending at the phone numbers in care team with any questions or concerns. After hours, please contact the ID fellow conductor and engineer. Cosigned by Malini Fernandez MD at 06/19/2021 [...] repeat imaging to determine final duration. * Sharon Lyon - 06/19/2021 9:57 AM CDT Occupational Therapy [...] OT Recommendation and Plan Recommendation/Plan OT Recommendation: Half-Way Facility OT Recommendation/Plan Comments: If pt refuses [...] baseline. Prior Function Prior Function Level of Brohman: Independent functional transfers Lives With: Other (Comment), [...] Incision Pain Interventions: Other (Comment) (Pt reports RN Nabil just gave him medication) Cognition Cognition Arousal/Alertness: [...] Compliance/Behavior: Easy to engage Perseveration: Not present [place] Cognitive Assessment-Blind (MOCA-Blind) MOCA-Blind Version: Version 3 [...] Edited by: Valarie Edwards MD at 06/11/2021 7815 Interval History:no issues overnight. Looks and feels good this AM. [facility] Otherwise ready for home. Home O2 at night and was off O2 al day yesterday. Objective Medications: Current Facility-Administered Medications: ??? acetaminophen (TYLENOL) tablet 1,000 mg, 1,000 mg, oral, Q6H [facility], Samra Hurtado NP, 1,000 mg at 06/19/21 0139 ??? albuterol 2.5 mg/0.5 mL nebulizer solution 2.5 mg, 2.5 mg, nebulization, TID PRN (RT), Talon Resendiz MD, 2.5 mg at 06/15/21 7080 ??? [Held by Provider] amLODIPine (NORVASC) tablet [...] patch 2 patch, 2 patch, transdermal, Daily, Sathe, Valarie Elvin, MD, Medication Removed at 06/18/212157 ??? linezolid [...] oral, Q6H PRN, 4 mg at 06/18/21 09 OR [DISCONTINUED] ondansetron (ZOFRAN) injection 4 mg, [...] Ward MD, 8 mg at 06/13/212109 ??? senna-docusate (PERICOLACE) 8.6-50 mg per tablet [...] Renal Diet effective now Question Answer Comment ([facility]) Diet type Regular ([facility]) Diet type Restricted Renal: Renal 06/15/21 1228 [...] only and have not been reviewed by [facility]. There will be no report generated by a [facility]iologist. US Outside Reference Result Date: 06/10/2021 These images are for Reference purposes only and have not been reviewed by [facility]. There will be no report generated by a [facility]iologist. XR Outside Reference Result Date: 06/10/2021 These images are for Reference purposes only and have not been reviewed by [facility]. There will be no report generated by a [facility]iologist. XR Outside Reference Result Date: 06/10/2021 These images are for Reference purposes only and have not been reviewed by [facility]. There will be no report generated by a [facility] Radiologist. CT Body Outside Consult Result Date: [...] images may or may not represent the mentasta source data set and thus may contain changes that may lower the accuracy of this second-opinion interpretation. Electronically signed by: Bartolome Kathleen M.D. , PHD CT Body Outside Reference Result Date: 06/10/2021 These images are for Reference purposes only and have not been reviewed by [facility]. There will be no report generated by a [facility]iologist. NM Outside Reference Result Date: 06/10/2021 These images are for Reference purposes only and have not been reviewed by [facility]. There will be no report generated by a [facility]iologist. Assessment/Plan ALFREDO (acute kidney injury) (CMS/HCC) ([facility]) Assessment & Plan -per renal: likely multifactorial. [...] kidney disease) stage 4, GFR 15-29 ml/min ([facility]) ([facility]) Assessment & Plan At time of admission creat baseline 2.5 - renal following - Avoid other nephrotoxic medications - Monitor labs COPD (chronic obstructive pulmonary disease) ([facility]) ([facility]) Assessment & Plan Wears 2L O2 overnight, has ANDRZEJ - continue home inhaler PVD (peripheral vascular disease) ([facility]) ([facility]) Assessment & Plan S/p peripheral artery angioplasty with stent placement x3. Takes Plavix at home. According to OSH records, last dose was 06/03. - hold Plavix Cardiac pacemaker in situ Assessment & Plan 2/2 symptomatic bradycardia, second degree AV block - on Eliquis (last dose 06/06), unknown why? - hold AC * Empyema ([facility]) ([facility]) Assessment & Plan Empyema without systemic manifestations WBC: 13.5, afebrile. OSH CT shows small to moderate loculated pleural effusion. - s/p L thoracotomy and decortication on 06/12 - micro results from OSH--show gram positive in cocci, moderate growth strept intermedius - ID consult : await final ID recs PT recommending rehab-SW aware and working on placement [facility] For patients or family members viewing this note through [employer] programs: This note was written as a [...] who was a/w empyema and transferred from [facility] for further Mx I/s/o worsening leukocytosis (42 k ). Underwent thoracotomy and decortication on 06/12. Received abx both at OSH and here. vanc levels elevated. Developed ALFREDO. ?? Renal c/s for ALFREDO ? 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 He used to see a group fitness instructor before, does not remember name. PCP currently monitoring renal function He recently moved to [place]. . Used to get all his care in [place] at [facility]. No h/o renal stones. He had renal failure once in 2013 at the time of hip replacement. He Was told his kidneys stopped working for 1 week. 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 He had recent labs at [facility] last month He takes lasix as needed [...] albuterol, 2.5 mg, 2.5 mg at 06/15/21 2252 ??? bisacodyl EC, 10 mg ??? calcium carbonate, 200 mg of elemental calcium, 500 mg at 06/13/217 ??? HYDROmorphone, 0.2 mg ??? ondansetron ODT, 4 mg, 4 mg at 06/18/21 3830 OR [DISCONTINUED] ondansetron, 4 mg ??? oxyCODONE, 5 mg, 5 mg at 06/18/21 1725 ??? ramelteon, 8 mg, 8 mg at 06/13/21 2110 ??? sodium chloride 0.9%, 0.5-20 mL, 10 [...] dose medications. - obtain renal panel from [facility]. - can d/c [facility] - monitor UOP, Cr, and renal function - no acute need for CENTRIFUGAL CASTING MACHINE TENDER - Cr starting to plateau ?? # Hyperkalemia - resolved Discussed with Dr. Chris Martinez Nephrology Fellow Consult 1 Service Contact (phone): [phone] After hours and weekends: please page [phone] Be advised that voice recognition software was [...] treatment team and contact the PT or APPLICATION INTEGRATION SPECIALIST currently assigned to this patient. If a physical therapy clinician is not assigned to this patient, please call [phone]. 06/18/21 1358 PT Last Visit Session Type [...] Edited by: Valarie Edwards MD at 06/11/2021 3546 Interval History: Pt reported no issues overnight. [...] Talon Resendiz MD, 2.5 mg at 06/15/21 7212 ??? [Held by Provider] amLODIPine (NORVASC) tablet [...] Marco A Ward MD, 500 mg at 06/13/217 ??? carvediloL (COREG) tablet 6.25 mg, 6.25 [...] at 06/18/21 0400, 2 patch at 06/18/21 08 ??? linezolid (ZYVOX) tablet 600 mg, 600 [...] JUSTIN, Pradeep Palma MD, 10 mL at 06/17/219 ??? sodium chloride 0.9% flush 0.5-20 mL, [...] Renal Diet effective now Question Answer Comment ([facility]) Diet type Regular ([facility]) Diet type Restricted Renal: Renal 06/15/21 1228 [...] only and have not been reviewed by [facility]. There will be no report generated by a [facility]iologist. US Outside Reference Result Date: 06/10/2021 These images are for Reference purposes only and have not been reviewed by [facility]. There will be no report generated by a [facility]iologist. XR Outside Reference Result Date: 06/10/2021 These images are for Reference purposes only and have not been reviewed by [facility]. There will be no report generated by a [facility]iologist. XR Outside Reference Result Date: 06/10/2021 These images are for Reference purposes only and have not been reviewed by [facility]. There will be no report generated by a [facility] Radiologist. CT Body Outside Consult Result Date: [...] images may or may not represent the mentasta source data set and thus may contain changes that may lower the accuracy of this second-opinion interpretation. Electronically signed by: Bartolome Kathleen M.D. , PHD CT Body Outside Reference Result Date: 06/10/2021 These images are for Reference purposes only and have not been reviewed by [facility]. There will be no report generated by a [facility]iologist. NM Outside Reference Result Date: 06/10/2021 These images are for Reference purposes only and have not been reviewed by [facility]. There will be no report generated by a [facility]iologist. Assessment/Plan ALFREDO (acute kidney injury) ([facility]) ([facility]) Assessment & Plan -per renal: likely multifactorial. [...] kidney disease) stage 4, GFR 15-29 ml/min ([facility]) ([facility]) Assessment & Plan At time of admission creat baseline 2.5 - dc'd vanc due to increase in creatine and vanco level - Avoid other nephrotoxic medications - Monitor labs COPD (chronic obstructive pulmonary disease) ([facility]) ([facility]) Assessment & Plan Wears 2L O2 overnight, has ANDRZEJ - continue home inhaler PVD (peripheral vascular disease) ([facility]) ([facility]) Assessment & Plan S/p peripheral artery angioplasty with stent placement x3. Takes Plavix at home. According to OSH records, last dose was 06/03. - hold Plavix Cardiac pacemaker in situ Assessment & Plan 2/2 symptomatic bradycardia, second degree AV block - on Eliquis (last dose 06/06), unknown why? - hold AC * Empyema ([facility]) ([facility]) Assessment & Plan Empyema without systemic manifestations [...] add guaifenesin and flutter valve Emely Moss [facility]- Thoracic Surgery [facility] For patients or family members viewing this note through [employer] access programs: This note was written as [...] who was a/w empyema and transferred from [facility] for further Mx I/s/o worsening leukocytosis (42 k ). Underwent thoracotomy and decortication on 06/12. Received abx both at OSH and here. vanc levels elevated. Developed ALFREDO. ?? Renal c/s for ALFREDO ? 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 He used to see a group fitness instructor before, does not remember name. PCP currently monitoring renal function He recently moved to [place]. . Used to get all his care in [place] at [facility]. No h/o renal stones. He had renal failure once in 2013 at the time of hip replacement. He Was told his kidneys stopped working for 1 week. 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 He had recent labs at [facility] last month He takes lasix as needed [...] albuterol, 2.5 mg, 2.5 mg at 06/15/21 2252 ??? bisacodyl EC, 10 mg ??? calcium carbonate, 200 mg of elemental calcium, 500 mg at 06/13/217 ??? HYDROmorphone, 0.2 mg ??? ondansetron ODT, 4 mg, 4 mg at 06/17/21 1003 OR [DISCONTINUED] ondansetron, 4 mg ??? oxyCODONE, 5 mg, 5 mg at 06/17/21 1530 ??? ramelteon, 8 mg, 8 mg at 06/13/21 2110 ??? sodium chloride 0.9%, 0.5-20 mL, 10 [...] dose medications. - obtain renal panel from [facility]. - lokelma 10 g TID until K levels normalize - monitor UOP, Cr, and renal function - no acute need for CENTRIFUGAL CASTING MACHINE TENDER ?? # Hyperkalemia - resolved Discussed with Dr. Chris Martinez Nephrology Fellow Consult 1 Service Contact (phone): [phone] After hours and weekends: please page [phone] Be advised that voice recognition software was [...] 06/17/2021 3:39 PM CDT Spiritual Care Note Service Desk Manager Jony Ruiz [facility], [facility] 06/17/21 1100 Time Spent Start Time 1050 Stop Time 1108 Time Calculation (min) 18 min Patient Spiritual Assessment Spirituality Assessed Focus of Care Clinical Encounter Type Visited With Patient Response Type Routine visit Routine Visit Introduction Reason for visit Support Interventions Interventions Active listening;Explore rashad and values;Offer emotional support;Offer spiritual/buddhist support;Prayer * Christal Perez, RD - 06/17/2021 1:28 PM CDT Nutrition Screen Note Pt. Screened for nutritional assessment secondary to LOS Past Medical History: Diagnosis Date ??? Anemia ??? Arthritis ??? Asthma ??? AV block Jun 2020 PM insertion ??? Carotid stenosis s/p right CEA ??? CKD (chronic kidney disease) stage 3, GFR 30-59 ml/min ([facility]) ??? Claudication (CMS/HCC) ([facility]) ??? COPD (chronic obstructive pulmonary disease) (CMS/HCC) ([facility]) ??? COVID-19 05/2020 hospitalization 3 days ??? Empyema (CMS/HCC) ([facility]) 05/2020 ??? GERD (gastroesophageal reflux disease) ??? Hyperkalemia ??? Hypertension ??? PAD (peripheral artery disease) (CMS/HCC) ([facility]) ??? Pneumonia 2018 ??? Sleep apnea Past [...] Renal Diet effective now Question Answer Comment ([facility]) Diet type Regular ([facility]) Diet type Restricted Renal: Renal 06/15/21 1228 Assessment / Impression: Pt states wt is stable, CBW 208#(06/10). Intake usually >75% of meals and snacks on a Regular Renal diet. Last BM: 06/17 per pt. Pt states he had not had a BM for 10 days,so he is feeling better. His appetite had been good APPLICATION INTEGRATION SPECIALIST, and decreased a bit while he was constipated. Pt continues on bowel regimen. No complaints of N/V/D. No significant skin integrity issues, noted surgical sites clean and dry per documentation. Appears to be well nourished on current plan and meeting needs. Labs 06/16 BUN 54H, Cr 3.53H, GFR 17L. Will continue to monitor per standards of care. Christal Perez MS, RD, LD [phone] * Mayelin To, PT - 06/17/2021 1:18 [...] treatment team and contact the PT or APPLICATION INTEGRATION SPECIALIST currently assigned to this patient. If a physical therapy clinician is not assigned to this patient, please call [phone]. 06/17/21 1318 PT Last Visit Session Type [...] mobility;Endurance training;Functional activity;Functional transfer training;Gait training;Neuromuscular re-education;Strengthening;Therapeutic activity; erapeutic exercise;Transfer training Progress Progressing toward goals [...] with all functional mobility * Milagro Toth COMMUNITY LIAISON - 06/17/2021 12:36 PM CDT Thoracic Surgery [...] ANDERSON Amanda Leigh, NP, 1,000 mg at 06/17/21 1208 ??? [...] (premix) 2,000 mg, 2,000 mg, intravenous, Q24H Ajay ANDERSON Jennifer Lynn, NP, 2,000 mg at 06/17/21 1041 ??? [...] 20 g, 20 g, oral, TID, Samra Hurtado, SHASHANK ??? lidocaine (LIDODERM) 5 % patch 2 patch, 2 patch, transdermal, Daily, Valarie Ewdards MD, Last Rate: 0 mL/hr at 06/16/212202, [...] flush 0.5-20 mL, 0.5-20 mL, intra-catheter, Q8H [facility]ie Connor Patrick, MD, 10 mL at 06/17/21 0616 ??? [...] Renal Diet effective now Question Answer Comment ([facility]) Diet type Regular ([facility]) Diet type Restricted Renal: Renal 06/15/21 1228 [...] 8.2* 8.5 8.7 Recent Labs Lab Units 06/11/214 PROTIME (PT) [...] only and have not been reviewed by [facility]. There will be no report generated by a [facility]iologist. US Outside Reference Result Date: 06/10/2021 These images are for Reference purposes only and have not been reviewed by [facility]. There will be no report generated by a [facility]iologist. XR Outside Reference Result Date: 06/10/2021 These images are for Reference purposes only and have not been reviewed by [facility]. There will be no report generated by a [facility]iologist. XR Outside Reference Result Date: 06/10/2021 These images are for Reference purposes only and have not been reviewed by [facility]. There will be no report generated by a [facility] Radiologist. CT Body Outside Consult Result Date: [...] images may or may not represent the mentasta source data set and thus may contain changes that may lower the accuracy of this second-opinion interpretation. Electronically signed by: Bartolome Kathleen M.D. , PHD CT Body Outside Reference Result Date: 06/10/2021 These images are for Reference purposes only and have not been reviewed by [facility]. There will be no report generated by a [facility]iologist. NM Outside Reference Result Date: 06/10/2021 These images are for Reference purposes only and have not been reviewed by [facility]. There will be no report generated by a [facility]iologist. Assessment/Plan * Empyema ([facility]) ([facility]) Assessment & Plan Empyema without systemic manifestations [...] kidney disease) stage 4, GFR 15-29 ml/min ([facility]) ([facility]) Assessment & Plan At time of admission creat baseline 2.5 - dc'd vanc due to increase in creatine and vanco level - Avoid other nephrotoxic medications - daily BMP - discharge appearing as pus reported from london insertion site: will remove london at this time. May need to be reinserted. Continue to follow creatinine ALFREDO (acute kidney injury) ([facility]) ([facility]) Assessment & Plan -per renal: likely multifactorial. [...] on tele COPD (chronic obstructive pulmonary disease) ([facility]) ([facility]) Assessment & Plan Wears 2L O2 overnight, has ANDRZEJ - continue home inhaler PVD (peripheral vascular disease) (CMS/HCC) ([facility]) Assessment & Plan S/p peripheral artery angioplasty with stent placement x3. Takes Plavix at home. According to OSH records, last dose was 06/03. - hold Plavix Cardiac pacemaker in situ Assessment & Plan 2/2 symptomatic bradycardia, second degree AV block - on Eliquis (last dose 06/06), unknown why? - hold SUMMER Toth, RN, MSN, ACNP- For patients or family members viewing this note through [employer] programs: This note was written as a [...] involved in your care. Cosigned by Benny Carpentre MD at 06/19/2021 9:11 AM CDT * [...] ALFREDO and hyperkalemia. Patient does not require CENTRIFUGAL CASTING MACHINE TENDER at this time. Received lasix 40mg IV. [...] PRN, Valarie Edwards MD, 5 mg at 06/16/21 0321 ??? pantoprazole DR (PROTONIX) extended release tablet 40 mg, 40 mg, oral, Daily, Pradeep Palma MD, 40 mg at 06/16/21 0840 ??? polyethylene glycol (MIRALAX) packet 17 g, 17 g, oral, Daily PRN, Sutaria, Parita Jorge, MD, 17 g at 06/14/21 0957 ??? ramelteon (ROZEREM) tablet 8 mg, 8 mg, oral, Nightly PRN, Marco A Ward MD, 8 mg at 06/13/212109 ??? senna 1.76 mg/mL syrup 8.8 mg, 8.8 mg, oral, BID PRN, Juanita Burks MD, 8.8 mg at 06/14/21 0957 ??? sodium chloride 0.9% flush 0.5-20 mL, 0.5-20 mL, intra-catheter, Q8H JUSTIN, Pradeep Palma MD, 10 mL at 06/15/21 2017 ??? sodium chloride 0.9% flush 0.5-20 mL, 0.5-20 mL, intra-catheter, PRN, Pradeep Palma MD, 10 mL at 06/11/21 0810 ??? sodium chloride 0.9% flush 0.5-20 mL, 0.5-20 mL, intra-catheter, Q8H JUSTIN, Pradeep Palma MD, 10 mL at 06/16/21 0419 ??? sodium chloride 0.9% flush 0.5-20 mL, 0.5-20 mL, intra-catheter, PRN, Pradeep Palma MD ??? sodium zirconium cyclosilicate (LOKELMA) packet 10 g, 10 g, oral, TID, Karla Meneses MD, 10 g at 06/16/21 0419 ??? tamsulosin (FLOMAX) extended release capsule 0.4 [...] Renal Diet effective now Question Answer Comment ([facility]) Diet type Regular ([facility]) Diet type Restricted Renal: Renal 06/15/21 1228 [...] 8.7 8.5 8.3* Recent Labs Lab Units 06/11/212133 PROTIME (PT) [...] only and have not been reviewed by [facility]. There will be no report generated by a [facility] Radiologist. US Outside Reference Result Date: 06/10/2021 These images are for Reference purposes only and have not been reviewed by [facility]. There will be no report generated by a [facility]iologist. XR Outside Reference Result Date: 06/10/2021 These images are for Reference purposes only and have not been reviewed by [facility]. There will be no report generated by a [facility]iologist. XR Outside Reference Result Date: 06/10/2021 These images are for Reference purposes only and have not been reviewed by [facility]. There will be no report generated by a [facility] Radiologist. CT Body Outside Consult Result Date: [...] images may or may not represent the mentasta source data set and thus may contain changes that may lower the accuracy of this second-opinion interpretation. Electronically signed by: Bartolome Kathleen M.D. , PHD CT Body Outside Reference Result Date: 06/10/2021 These images are for Reference purposes only and have not been reviewed by [facility]. There will be no report generated by a [facility]iologist. NM Outside Reference Result Date: 06/10/2021 These images are for Reference purposes only and have not been reviewed by [facility]. There will be no report generated by a [facility]ologist. Assessment/Plan ALFREDO (acute kidney injury) ([facility]) ([facility]) Assessment & Plan -per renal: likely multifactorial. [...] kidney disease) stage 4, GFR 15-29 ml/min ([facility]) ([facility]) Assessment & Plan At time of admission creat baseline 2.5 - dc'd vanc due to increase in creatine and vanco level - Avoid other nephrotoxic medications - daily BMP - keep london due to rising creatine COPD (chronic obstructive pulmonary disease) ([facility]) ([facility]) Assessment & Plan Wears 2L O2 overnight, has ANDRZEJ - continue home inhaler PVD (peripheral vascular disease) ([facility]) ([facility]) Assessment & Plan S/p peripheral artery angioplasty with stent placement x3. Takes Plavix at home. According to OSH records, last dose was 06/03. - hold Plavix Cardiac pacemaker in situ Assessment & Plan 2/2 symptomatic bradycardia, second degree AV block - on Eliquis (last dose 06/06), unknown why? - hold AC * Empyema ([facility]) ([facility]) Assessment & Plan Empyema without systemic manifestations WBC: 18.6, afebrile. OSH CT shows small to moderate loculated pleural effusion. - s/p L thoracotomy and decortication on 06/12 - micro results from OSH--show gram positive in cocci, moderate growth strept intermedius - ID consult : empiric linezolid PO. Ceftriaxone and flagyl. Emely Moss ACNP- Thoracic Surgery [facility] For patients or family members viewing this note through [employer] access programs: This note was written as [...] CDT Nurse came in and talked to COMMUNITY LIAISON that PT walked patient ane he is [...] treatment team and contact the PT or APPLICATION INTEGRATION SPECIALIST currently assigned to this patient. If a physical therapy clinician is not assigned to this patient, please call [phone]. 06/15/21 0919 PT Last Visit Session Type [...] distal BUE and distal BLE. Nurse and COMMUNITY LIAISON notified following vitals check. Therapist and nurse [...] PT at 06/15/2021 4:05 PM CDT * Emely Moss SHASHANK - 06/15/2021 8:22 AM CDT Thoracic Surgery [...] Edwards MD at 06/11/2021 0455 Interval History: O2 increased to 6l/m for [...] (RT), Talon Resendiz MD, 2.5 mg at 06/14/212210 ??? amLODIPine (NORVASC) tablet 10 mg, 10 [...] (premix) 2,000 mg, 2,000 mg, intravenous, Q24H [facility], Marco A Ward MD, Last Rate: 40 [...] patch 2 patch, 2 patch, transdermal, Daily, [facility]im[facility] MD, 2 patch at 06/15/21 0204 ??? linezolid (ZYVOX) 600 mg/300 mL in dextrose 5% (premix) 600 mg, 600 mg, intravenous, Q12H [facility], Juanita Burks MD, Last Rate: 150 mL/hr [...] Daily, Pradeep Palma MD, 40 mg at 06/14/21 0958 ??? polyethylene glycol (MIRALAX) packet 17 g, [...] Adult Diet Regular Diet effective now Question: ([facility]) Diet type Answer: Regular 06/13/21 0737 Is&Os: [...] only and have not been reviewed by [facility]. There will be no report generated by a [facility]iologist. [place] Outside Reference Result Date: 06/10/2021 These images are for Reference purposes only and have not been reviewed by [facility]. There will be no report generated by a [facility]iologist. XR Outside Reference Result Date: 06/10/2021 These images are for Reference purposes only and have not been reviewed by [facility]. There will be no report generated by a [facility]iologist. XR Outside Reference Result Date: 06/10/2021 These images are for Reference purposes only and have not been reviewed by [facility]. There will be no report generated by a [facility] Radiologist. CT Body Outside Consult Result Date: [...] images may or may not represent the mentasta source data set and thus may contain changes that may lower the accuracy of this second-opinion interpretation. Electronically signed by: Bartolome Kathleen M.D. , PHD CT Body Outside Reference Result Date: 06/10/2021 These images are for Reference purposes only and have not been reviewed by [facility]. There will be no report generated by a [facility]iologist. [place] Outside Reference Result Date: 06/10/2021 These images are for Reference purposes only and have not been reviewed by [facility]. There will be no report generated by a [facility]iologist. Assessment/Plan Anemia Assessment & Plan - monitor - possibly R/T empyema Hypertension Assessment & Plan Has been normotensive while inpatient -Continue Amlodipine, Carvedilol, clonidine - Lisinopril and HCTZ on hold Hyperkalemia Assessment & Plan - Lisinopril on hold - AM BMP - monitor on tele CKD (chronic kidney disease) stage 4, GFR 15-29 ml/min ([facility]) ([facility]) Assessment & Plan At time of admission creat baseline 2.5 - dc'd vanc due to increase in creatine and vanco level - Avoid other nephrotoxic medications - daily BMP - keep london due to rising creatine COPD (chronic obstructive pulmonary disease) ([facility]) ([facility]) Assessment & Plan Wears 2L O2 overnight, has ANDRZEJ - continue home inhaler PVD (peripheral vascular disease) ([facility]) ([facility]) Assessment & Plan S/p peripheral artery angioplasty with stent placement x3. Takes Plavix at home. According to OSH records, last dose was 06/03. - hold Plavix Cardiac pacemaker in situ Assessment & Plan 2/2 symptomatic bradycardia, second degree AV block - on Eliquis (last dose 06/06), unknown why? - hold AC * Empyema ([facility]) ([facility]) Assessment & Plan WBC: 21, afebrile. OSH CT shows small to moderate loculated pleural effusion. - s/p L thoracotomy and decortication on 06/12 - Continue IV cefe. Vanc switched to Linezolid - micro results from OSH--show gram positive in cocci, moderate growth strept intermedius - ID consult Emely Moss [facility]- Thoracic [facility] For patients or family members viewing this note through [employer] access programs: This note was written as [...] Edited by: Valarie Edwards MD at 06/11/2021 9860 Interval History: Patient reports feeling well this [...] (premix) 600 mg, 600 mg, intravenous, Q12H JUSTINKimmie Parita Pankaj, MD ??? ondansetron ODT (ZOFRAN-ODT) disintegrating tablet 4 mg, 4 mg, oral, Q6H PRN OR [DISCONTINUED] ondansetron (ZOFRAN) injection 4 mg, 4 mg, intravenous, Q6H PRN, Yamilet Faustin MD ??? oxyCODONE (ROXICODONE) tablet 5 mg, 5 mg, oral, Q4H PRN, Juanita Burks MD, 5 mg at 06/14/21 0958 ??? pantoprazole DR (PROTONIX) extended release tablet 40 mg, 40 mg, oral, Daily, Pradeep Palma MD, 40 mg at 06/14/21 0958 ??? polyethylene glycol (MIRALAX) packet 17 g, 17 g, oral, Daily PRN, Juanita Burks MD, 17 g at 06/14/21 0957 ??? ramelteon (ROZEREM) tablet 8 mg, 8 mg, oral, Nightly PRN, Marco A Ward MD, 8 mg at 06/13/210 ??? senna 1.76 mg/mL syrup 8.8 mg, 8.8 mg, oral, BID PRN, Juanita Burks MD, 8.8 mg at 06/14/21 0957 ??? sodium chloride 0.9% flush 0.5-20 mL, 0.5-20 mL, intra-catheter, Q8H Louie ANDERSON Connor Patrick, MD, 10 mL at 06/14/21 0551 ??? sodium chloride 0.9% flush 0.5-20 mL, 0.5-20 mL, intra-catheter, PRN, Pradeep Palma MD, 10 mL at 06/11/21 0810 ??? sodium chloride 0.9% flush 0.5-20 mL, 0.5-20 mL, intra-catheter, Q8H Louie ANDERSON Connor Patrick, MD, 10 mL at 06/14/21 0550 ??? [...] Adult Diet Regular Diet effective now Question: ([facility]) Diet type Answer: Regular 06/13/21 0737 Is&Os: [...] Recent Labs Lab Units 06/14/21 0022 06/13/211 06/12/21180206/12/21144706/11/212133 WBC K/cumm 25.8* 31.3* -- -- 26.4* HEMOGLOBIN, POC g/dL -- -- 8.7* < > -- HEMOGLOBIN g/dL 7.3* 8.2* -- -- 9.2* HEMATOCRIT % 24.0* 25.6* -- -- 29.6* HEMATOCRIT POC % -- -- 26.0* < > -- PLATELETS K/cumm 222 214 -- -- 196 < > = values in this interval not displayed. Recent Labs Lab Units 06/14/21 0022 06/13/2175006/12/[id number]/12/[id number]/11/212133 SODIUM mmol/L 136 137 -- -- 135 [...] only and have not been reviewed by [facility]. There will be no report generated by a [facility]iologist. US Outside Reference Result Date: 06/10/2021 These images are for Reference purposes only and have not been reviewed by [facility]. There will be no report generated by a [facility]iologist. XR Outside Reference Result Date: 06/10/2021 These images are for Reference purposes only and have not been reviewed by [facility]. There will be no report generated by a [facility]iologist. XR Outside Reference Result Date: 06/10/2021 These images are for Reference purposes only and have not been reviewed by [facility]. There will be no report generated by a [facility] Radiologist. CT Body Outside Consult Result Date: [...] images may or may not represent the mentasta source data set and thus may contain changes that may lower the accuracy of this second-opinion interpretation. Electronically signed by: Bartolome Kathleen M.D. , PHD CT Body Outside Reference Result Date: 06/10/2021 These images are for Reference purposes only and have not been reviewed by [facility]. There will be no report generated by a [facility]iologist. NM Outside Reference Result Date: 06/10/2021 These images are for Reference purposes only and have not been reviewed by [facility]. There will be no report generated by a [facility]ologist. Assessment/Plan Hypertension Assessment & Plan Has been normotensive while inpatient -Continue Amlodipine, Carvedilol, clonidine - Lisinopril and HCTZ on hold Hyperkalemia Assessment & Plan K: 5.1 - Lisinopril on hold - AM BMP - monitor on tele CKD (chronic kidney disease) stage 4, GFR 15-29 ml/min ([facility]) ([facility]) Assessment & Plan At time of admission: GFR: 27, BUN/Cr: 42/2.35. K: 5.6. No urine charted. No h/o HD - dc'd vanc - Avoid other nephrotoxic medications - daily BMP COPD (chronic obstructive pulmonary disease) ([facility]) ([facility]) Assessment & Plan Wears 2L O2 overnight, has ANDRZEJ - continue home inhaler PVD (peripheral vascular disease) ([facility]) ([facility]) Assessment & Plan S/p peripheral artery angioplasty with stent placement x3. Takes Plavix at home. According to OSH records, last dose was 06/03. - hold Plavix Cardiac pacemaker in situ Assessment & Plan 2/2 symptomatic bradycardia, second degree AV block - on Eliquis (last dose 06/06), unknown why? - hold AC * Empyema ([facility]) ([facility]) Assessment & Plan WBC: 26, afebrile. OSH CT shows small to moderate loculated pleural effusion. - s/p L thoracotomy and decortication on 06/12 - Continue IV cefe. Vanc switched to Linezolid - Will obtain micro results from OSH Juanita Burks MD For patients or family members viewing this note through [employer] programs: This note was written as a [...] present) Prior Function Prior Function Level of Brohman: Independent functional transfers, Independent with ambulation Lives [...] 13, 2021 Length of Stay: 3 Attending: Benny Carpenter* POD:* No surgery date [...] Edited by: Valarie Edwards MD at 06/11/2021 3394 Interval History: -s/p thoracotomy with decortication for [...] Continuous, Pradeep Palma MD, 20 mg at 06/12/211755 ??? naloxone (NARCAN) 0.4 mg/mL injection 0.04-0.4 [...] 0.5-20 mL, intra-catheter, Q8H JUSTINLouie Connor Patrick, MD ??? sodium chloride 0.9% flush 0.5-20 mL, 0.5-20 mL, intra-catheter, PRN, Pradeep Palma MD ??? sodium chloride 0.9% infusion, 75 mL/hr, intravenous, Continuous, Pradeep Palma MD,Last Rate: 75 mL/hr at 06/13/21 0911, 75 mL/hr at 06/13/21 0911 ??? sodium chloride 0.9% solution 1,000 mL, 1,000 mL, intra-catheter, Continuous, Pradeep Palma MD, 1,000 mL at 06/12/21 2131 ??? tamsulosin (FLOMAX) extended release capsule 0.4 [...] Adult Diet Regular Diet effective now Question: ([facility]) Diet type Answer: Regular 06/13/21 07 Is&Os: I/O last 2 completed shifts: In: [...] 06/12/21 1803 06/12/21 1722 06/12/21 1448 06/11/21 2134 06/10/21 2304 06/10/21 2304 WBC K/cumm 31.3* -- -- -- 26.4* [...] 06/12/21 1803 06/12/21 1722 06/12/21 1448 06/11/21 2134 06/11/21 1158 06/11/21 1158 SODIUM mmol/L 137 -- [...] only and have not been reviewed by [facility]. There will be no report generated by a [facility]iologist. [place] Outside Reference Result Date: 06/10/2021 These images are for Reference purposes only and have not been reviewed by [facility]. There will be no report generated by a [facility]iologist. XR Outside Reference Result Date: 06/10/2021 These images are for Reference purposes only and have not been reviewed by [facility]. There will be no report generated by a [facility]ologist. XR Outside Reference Result Date: 06/10/2021 These images are for Reference purposes only and have not been reviewed by [facility]. There will be no report generated by a [facility] Radiologist. CT Body Outside Consult Result Date: [...] images may or may not represent the mentasta source data set and thus may contain changes that may lower the accuracy of this second-opinion interpretation. Electronically signed by: Bartolome Kathleen M.D. , PHD CT Body Outside Reference Result Date: 06/10/2021 These images are for Reference purposes only and have not been reviewed by [facility]. There will be no report generated by a [facility]iologist. NM Outside Reference Result Date: 06/10/2021 These images are for Reference purposes only and have not been reviewed by [facility]. There will be no report generated by a [facility]ologist. Assessment/Plan Hypertension Assessment & Plan Has been normotensive while inpatient -Continue Amlodipine, Carvedilol, clonidine - Lisinopril and HCTZ on hold Hyperkalemia Assessment & Plan K: 5.1 - Lisinopril on hold - AM BMP - monitor on tele CKD (chronic kidney disease) stage 4, GFR 15-29 ml/min ([facility]) ([facility]) Assessment & Plan At time of admission: GFR: 27, BUN/Cr: 42/2.35. K: 5.6. No urine charted. No h/o HD - decrease Vanc dose to daily - Avoid other nephrotoxic medications - daily BMP COPD (chronic obstructive pulmonary disease) ([facility]) ([facility]) Assessment & Plan Wears 2L O2 overnight, has ANDRZEJ - continue home inhaler PVD (peripheral vascular disease) ([facility]) ([facility]) Assessment & Plan S/p peripheral artery angioplasty with stent placement x3. Takes Plavix at home. According to OSH records, last dose was 06/03. - hold Plavix Cardiac pacemaker in situ Assessment & Plan 2/2 symptomatic bradycardia, second degree AV block - on Eliquis (last dose 06/06), unknown why? - hold AC * Empyema ([facility]) ([facility]) Assessment & Plan WBC: 26, afebrile. OSH CT shows small to moderate loculated pleural effusion. - OR today for decortication - Continue IV cefe and Vanc - f/u Vanc through - Trend CBC - Will obtain micro results from OSH KATHERINE Shaw For patients or family members viewing this note through [employer] programs: This note was written as a [...] who underwent left thoracotomy for Empyema (CMS/HCC) ([facility]) Denies nausea/vomiting, chest pain, shortness of breath. Hemodynamically stable with no complaints at this time. Past Medical History: Diagnosis Date ??? Anemia ??? Arthritis ??? Asthma ??? AV block Jun 2020 PM insertion ??? Carotid stenosis s/p right CEA ??? CKD (chronic kidney disease) stage 3, GFR 30-59 ml/min (HCC) ??? Claudication (CMS/HCC) ([facility]) ??? COPD (chronic obstructive pulmonary disease) (CMS/HCC) ([facility]) ??? COVID-19 05/2020 hospitalization 3 days ??? Empyema (CMS/HCC) ([facility]) 05/2020 ??? GERD (gastroesophageal reflux disease) ??? Hyperkalemia ??? Hypertension ??? PAD (peripheral artery disease) (CMS/HCC) ([facility]) ??? Pneumonia 2018 ??? 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 Clears, ADAT ID: no antibiotics indicated Ct to wall sunction Daily CXR PT/OT OOB Margie Serrato MD Cosigned by Benny Carpenter MD at 06/14/2021 6:58 PM CDT * Jony Ruiz - 06/12/2021 3:40 PM CDT Spiritual Care Note Service Desk Manager Jony Ruiz Spiritual Care Services, [facility] 06/12/21 1400 Time Spent Start Time 1448 Stop Time 1449 Time Calculation (min) 1 min Patient Spiritual Assessment Spirituality Assessed Unable to assess Clinical Encounter Type Visited With Patient not available (patient away from room at time of title i math tutor visit) * Samra Hurtado NP - 06/12/2021 [...] Edited by: Valarie Edwards MD at 06/11/2021 9598 Interval History: Mr. Hill is planned to [...] MD, Last Rate: 40 mL/hr at 06/12/21 0923, 2,000 mg at 06/12/21922 ??? cloNIDine (CATAPRES) tablet 0.1 mg, 0.1 [...] flush 0.5-20 mL, 0.5-20 mL, intra-catheter, Q8H JSUTIN, Yamilet Faustin MD, 10 mL at 06/12/21 0445 ??? sodium chloride 0.9% flush 0.5-20 mL, 0.5-20 mL, intra-catheter, PRN, Yamilet Faustin MD, 10 mL at 06/11/21 0810 ??? sodium chloride 0.9% infusion, 75 mL/hr, intravenous, Continuous, Emely Moss NP, Last Rate: 75 mL/hr at 06/11/21 2146, 75 mL/hr at 06/11/21 2146 ??? tamsulosin [...] only and have not been reviewed by [facility]. There will be no report generated by a [facility]iologist. [place] Outside Reference Result Date: 06/10/2021 These images are for Reference purposes only and have not been reviewed by [facility]. There will be no report generated by a [facility]iologist. XR Outside Reference Result Date: 06/10/2021 These images are for Reference purposes only and have not been reviewed by [facility]. There will be no report generated by a [facility]iologist. XR Outside Reference Result Date: 06/10/2021 These images are for Reference purposes only and have not been reviewed by [facility]. There will be no report generated by a [facility] Radiologist. CT Body Outside Consult Result Date: [...] images may or may not represent the mentasta source data set and thus may contain changes that may lower the accuracy of this second-opinion interpretation. Electronically signed by: Bartolome Kathleen M.D. , PHD CT Body Outside Reference Result Date: 06/10/2021 These images are for Reference purposes only and have not been reviewed by [facility]. There will be no report generated by a [facility]iologist. NM Outside Reference Result Date: 06/10/2021 These images are for Reference purposes only and have not been reviewed by [facility]. There will be no report generated by a [facility]ologist. Assessment/Plan Hypertension Assessment & Plan Has been normotensive while inpatient -Continue Amlodipine, Carvedilol, clonidine - Lisinopril and HCTZ on hold Hyperkalemia Assessment & Plan K: 5.1 - Lisinopril on hold - AM BMP - monitor on tele CKD (chronic kidney disease) stage 4, GFR 15-29 ml/min ([facility] ([facility]) Assessment & Plan At time of admission: GFR: 27, BUN/Cr: 42/2.35. K: 5.6. No urine charted. No h/o HD - decrease Vanc dose to daily - Avoid other nephrotoxic medications - daily BMP COPD (chronic obstructive pulmonary disease) ([facility]) ([facility]) Assessment & Plan Wears 2L O2 overnight, has ANDRZEJ - continue home inhaler PVD (peripheral vascular disease) ([facility]) ([facility]) Assessment & Plan S/p peripheral artery angioplasty with stent placement x3. Takes Plavix at home. According to OSH records, last dose was 06/03. - hold Plavix Cardiac pacemaker in situ Assessment & Plan 2/2 symptomatic bradycardia, second degree AV block - on Eliquis (last dose 06/06), unknown why? - hold AC * Empyema ([facility]) ([facility]) Assessment & Plan WBC: 26, afebrile. OSH CT shows small to moderate loculated pleural effusion. - OR today for decortication - Continue IV cefe and Vanc - f/u Vanc through - Trend CBC - Will obtain micro results from OSH KATHERINE Shaw For patients or family members viewing this note through [employer] programs: This note was written as a [...] 06/11/2021 3:38 PM CDT Spiritual Care Note Service Desk Manager Jony Ruiz Spiritual Care Services, [facility] 06/11/21 1500 Time Spent Start Time 1527 Stop Time 1528 Time Calculation (min) 1 min Patient Spiritual Assessment Spirituality Assessed Unable to assess Clinical Encounter Type Visited With Patient not available (patient with dr at time of title i math tutor's visit) * Jazmin Jackson RN - 06/11/2021 2:40 PM CDT CM Initial Assessment Interview Note Information Obtained From: Patient (06/11/21 3345) Admission Source: Transfer from Hospital Impression: Empyema - management and possible surgical intervention Plan Includes: Case Management will follow for Medical Updates and discharge planning and referrals . CM will collaborate with SW and clinical team regarding post hospitalization needs for home health half-way/therapy, SNF/Rehab/LTAC, DME, PCP follow up and other resources as indicated. Primary Source of Transportation: family Health Insurance Coverage: Medicare/ C Prescription Coverage: [employer] Pharmacy: [facility] Primary Care Provider: Ross Espinosa MD Prior to Admission: Primary Caregiver: Self Support System: Family members Support system contact info (name, phone, availablity): Michelle Schroeder ( sister) [phone] Anjali Wilde (sister) [phone] Home Care Services: No Durable Medical Equipment: Cane (single prong), Walker (wheeled), Oxygen, Nebulizer ([employer] supplier) Living Arrangements: Family members Type of Residence: Private residence Steps in home? : Yes, Outside of home, Yes, Inside home Number of steps inside:: 2 steps Number of steps outside:: 1 steps (06/11/211044) Potential discharge needs include: Home Health: [facility], Physical therapy (06/11/211044) Dialysis: no Behavioral Health [...] Collaboration with patient, MD, direct care nurse, Data Center Operator, Nurse Coordinator and other members of the health care team to assure needed interventions completed. 2. Return patient to optimal level of self-care post discharge. 3. Skimmer Scoop Operator will follow for Discharge Planning - interventions [...] Edwards MD at 06/11/2021 0455 Interval History: Mr. Hill arrived from OSH [...] JUSTIN, Yamilet Faustin MD, 10 mL at 06/10/21 2136 ??? sodium chloride 0.9% flush 0.5-20 mL, [...] 1,500 mg, 15 mg/kg, intravenous, Q24H, Samra Hurtado, SHASHANK Diet: Dietary Orders (From admission, onward) Start [...] only and have not been reviewed by [facility]. There will be no report generated by a [facility]iologist. US Outside Reference Result Date: 06/10/2021 These images are for Reference purposes only and have not been reviewed by [facility]. There will be no report generated by a [facility]iologist. XR Outside Reference Result Date: 06/10/2021 These images are for Reference purposes only and have not been reviewed by [facility]. There will be no report generated by a [facility]ologist. XR Outside Reference Result Date: 06/10/2021 These images are for Reference purposes only and have not been reviewed by [facility]. There will be no report generated by a [facility] Radiologist. CT Body Outside Reference Result Date: 06/10/2021 These images are for Reference purposes only and have not been reviewed by [facility]. There will be no report generated by a [facility]iologist. NM Outside Reference Result Date: 06/10/2021 These images are for Reference purposes only and have not been reviewed by [facility]. There will be no report generated by a [facility]ologist. Assessment/Plan Hypertension Assessment & Plan Has been normotensive while inpatient -Continue Amlodipine, Carvedilol, clonidine - Lisinopril and HCTZ on hold Hyperkalemia Assessment & Plan K: 5.6 on BMP, whole blood K 5.4 - received Lokelma o/n - Lisinopril on hold - BMP this afternoon - monitor on tele CKD (chronic kidney disease) stage 4, GFR 15-29 ml/min ([facility]) ([facility]) Assessment & Plan At time of admission: GFR: 27, BUN/Cr: 42/2.35. K: 5.6. No urine charted. No h/o HD - decrease Vanc dose to daily - Avoid other nephrotoxic medications - daily BMP COPD (chronic obstructive pulmonary disease) ([facility]) ([facility]) Assessment & Plan Wears 2L O2 overnight, has ANDRZEJ - continue home inhaler PVD (peripheral vascular disease) ([facility]) ([facility]) Assessment & Plan S/p peripheral artery angioplasty with stent placement x3. Takes Plavix at home. According to OSH records, last dose was 06/03. - hold Plavix Cardiac pacemaker in situ Assessment & Plan 2/2 symptomatic bradycardia, second degree AV block - on Eliquis (last dose 06/06), unknown why? - hold AC * Empyema ([facility]) ([facility]) Assessment & Plan WBC: 32, afebrile. OSH CT shows small to moderate loculated pleural effusion. - Chest tube vs OR planning - NPO until plan determined - Continue IV cefe and Vanc - Trend CBC - Will obtain micro results from OSH [facility] For patients or family members viewing this note through [employer] programs: This note was written as a [...] -- -- -- 95 % -- -- 06/10/212050 146/67 86 36.7 ??C (98.1 ??F) Oral [...] only and have not been reviewed by [facility]. There will be no report generated by a [facility] Radiologist. XR Outside Reference Narrative: EXAMINATION: Images For Reference Purposes Only Impression: These images are for Reference purposes only and have not been reviewed by [facility]. There will be no report generated by a [facility] Radiologist. XR Outside Reference Narrative: EXAMINATION: Images For Reference Purposes Only Impression: These images are for Reference purposes only and have not been reviewed by [facility]. There will be no report generated by a [facility] Radiologist. NM Outside Reference Narrative: EXAMINATION: Images For Reference Purposes Only Impression: These images are for Reference purposes only and have not been reviewed by [facility]. There will be no report generated by a [facility] Radiologist. CT Body Outside Reference Narrative: EXAMINATION: Images For Reference Purposes Only Impression: These images are for Reference purposes only and have not been reviewed by [facility]. There will be no report generated by a [facility] Radiologist. US Outside Reference Narrative: EXAMINATION: Images For Reference Purposes Only Impression: These images are for Reference purposes only and have not been reviewed by [facility]. There will be no report generated by a [facility] Radiologist. Principal Problem: Empyema (CMS/HCC) (HCC) Assessment [...] By, (c) = Cosigned By Initials Name SS Sarina Sorto RN Vascular Access Documentation (last 4 hours) [facility] Additional Procedures Row Name 06/19/21 002 Procedures Line Type Peripheral -KP Time in 0020 -KP Time out 29 -KP Time Calculation (min) 10 min -KP [...] removed in 7-10 days by any MD, COMMUNITY LIAISON, line decorator. Milagro Toth NP For patients or family members viewing this note through [employer] programs: This note was written as a [...] who was a/w empyema and transferred from [facility] for further Mx I/s/o worsening leukocytosis (42 k ). Underwent thoracotomy and decortication on 06/12. Received abx both at OSH and here. vanc levels elevated. Developed ALFREDO. Renal c/s for ALFREDO Renal Hx : Pt states he has kidney disease, likely stage 3 -4. He used to see a group fitness instructor before, does not remember name. PCP currently monitoring renal function He recently moved to [place]. . Used to get all his care in [place] at [facility]. No h/o renal stones. He had renal failure once in 2013 at the time of hip replacement. He Was told his kidneys stopped working for 1 week. 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 He had recent labs at [facility] last month He takes lasix as needed at home for leg swelling or weight gain Past Medical History: Diagnosis Date ??? Anemia ??? Arthritis ??? Asthma ??? AV block Jun 2020 PM insertion ??? Carotid stenosis s/p right CEA ??? CKD (chronic kidney disease) stage 3, GFR 30-59 ml/min ([facility]) ??? Claudication ([facility]) ([facility]) ??? COPD (chronic obstructive pulmonary disease) ([facility]) ([facility]) ??? COVID-19 05/2020 hospitalization 3 days ??? Empyema ([facility]) ([facility]) 05/2020 ??? GERD (gastroesophageal reflux disease) ??? Hyperkalemia ??? Hypertension ??? PAD (peripheral artery disease) ([facility]) ([facility]) ??? Pneumonia 2018 ??? Sleep apnea Past [...] Review: Laboratory review: Recent Labs Lab Units 06/14/21 2033 06/14/21 0022 06/13/21 0751 WBC K/cumm 21.0* 25.8* 31.3* HEMOGLOBIN g/dL 7.2* 7.3* 8.2* PLATELETS K/cumm 182 222 214 Recent Labs Lab Units 06/15/21 1047 06/14/21 2033 06/14/21 0022 06/13/21 0751 06/12/21 1213 06/11/21 1158 [...] M.D. Assessment /Plan Principal Problem: Empyema (CMS/HCC) ([facility]) Active Problems: Cardiac pacemaker in situ PVD (peripheral vascular disease) (CMS/HCC) (HCC) COPD (chronic obstructive pulmonary disease) (CMS/HCC) ([facility]) CKD (chronic kidney disease) stage 4, GFR 15-29 ml/min (CMS/HCC) ([facility]) Hyperkalemia Hypertension Anemia # Non oliguric ALFREDO [...] x 1 - obtain renal panel from [facility]. - obtain UA - lokelma 10 g TID until K levels normalize - monitor UOP, Cr, and renal function - no acute need for CENTRIFUGAL CASTING MACHINE TENDER # Hyperkalemia - likely I/s/o renal failure - lokelma scheduled doses 10 g tid as above until K normalized then switch to 10 g once a day - monitor K - no acute need for CENTRIFUGAL CASTING MACHINE TENDER - Lasix IV 40 x 1 as above TBD w/ Dr. Perez in AM Filippo Martinez Nephrology Fellow Consult 1 Service Contact (phone): [phone] After hours and weekends: please page [phone] Cosigned by Genaro Perez MD at 06/16/2021 [...] Team: General 3 Contact Information: Please see [facility] Treatment Team listing for up-to-date contact information. [...] he was directed to OSH ED at [facility]. CXR showed left airspace disease and pleural [...] stage 3, GFR 30-59 ml/min ([facility]) ??? Claudication (CMS/HCC) ([facility]) ??? COPD (chronic obstructive pulmonary disease) (CMS/HCC) ([facility]) ??? COVID-19 05/2020 hospitalization 3 days ??? Empyema (CMS/HCC) ([facility]) 05/2020 ??? GERD (gastroesophageal reflux disease) ??? [...] dula lead PM ??? OTHER SURGICAL HISTORY 2019, 2020 surgical and endovascular intervention LLE-3 stents [...] (RT) Talon Resendiz MD 2.5 mg at 06/14/21 2211 ??? amLODIPine (NORVASC) tablet 10 mg 10 [...] water (premix) 2,000 mg 2,000 mg intravenous [id number] Marco A Ward MD 40 mL/hr at 06/15/21 0905 2,000 mg at 06/15/21 09 ??? cloNIDine (CATAPRES) tablet 0.1 mg 0.1 mg oral BID Marco A Ward MD 0.1 mg at 06/15/21 0900 ??? doxepin (SINEquan) capsule 25 mg 25 mg oral Nightly Marco A Ward MD 25 mg at 06/13/212110 ??? enoxaparin (LOVENOX) syringe 30 mg 30 mg subcutaneous Daily-2100 Pradeep Palma MD 30 mg at 06/14/212048 ??? lidocaine (LIDODERM) 5 % patch 2 patch 2 patch transdermal Daily Valarie Edwards MD 2 patch at 06/15/21 0204 ??? linezolid (ZYVOX) 600 mg/300 mL in dextrose 5% (premix) 600 mg 600 mg intravenous Q12H [facility] Juanita Burks MD 150 mL/hr at 06/15/21 0905 600 mg at 06/15/21 0905 ??? ondansetron [...] flush 0.5-20 mL 0.5-20 mL intra-catheter Q8H [facility] Pradeep Palma MD 10 mL at 06/14/212056 ??? sodium chloride 0.9% flush 0.5-20 mL 0.5-20 mL intra-catheter PRN Pradeep Palma MD10 mL at 06/11/21 0810 ??? sodium chloride 0.9% flush 0.5-20 mL 0.5-20 mL intra-catheter Q8H [facility] Pradeep Palma MD 10 mL at 06/14/212056 [...] 62.5 mcg at 06/15/21 0905 No current Epic-ordered outpatient medications on file. Anti-infectives (From admission, onward) Start Dose/Rate Route Frequency Ordered Stop 10/24/21 0930 linezolid (ZYVOX) 600 mg/300 mL in [...] HIV Ab Screen: No results found for: [id number] HIV Viral Load: No results found for: [id number] CD4 Count: No results found for: CD4ABS [...] only and have not been reviewed by [facility]. There will be no report generated by a [facility]iologist. The following images were personally examined and the following details determined: Assessment/Plan * Empyema (CMS/HCC) (HCC) Assessment & Plan The patient is a [...] you. Please contact the Team 3 ID COMMUNITY LIAISON M-F, 8-4; or the Attending at the phonenumbers in care team with any questions or concerns. After hours, please contact the ID fellow conductor and engineer. documented in this encounter Nursing Notes * [...] discharge. Meds will be delivered to home [facility] will be providing meds. [facility] will be providing Half-Way. SOC 06/24 Discharge orders received and forwarded to [facility] and [facility] . Spoke with patients sister , [...] at bedside regarding patient going home with half-way for HI services as well as [place] [facility] and physical therapy. They are asking about getting half-way on a daily basis for IV antibiotics [...] 11:42 AM CDT Problem: Patient remains at [facility]. Ensure acute medical needs are met and that patient has a safe discharge plan. Goal: Secure a facility that patient/family are agreeable with and ensure patient has continuum of care. Discharge plan: PT has changed pt's recommendations to home. SW did attempt to reach out to all 3 SNF options: [facility] ([facility]), [facility] (rang busy with multiple attempts), and [facility] , however SW was only able to leave a vm for the first and third option. JESSY did speak with pt's sister, Michelle, re: [...] d/c planning. JESSY updated CM, RN, and COMMUNITY LIAISON re: the above. 1:16 PM COMMUNITY LIAISON updated SW, RN and CM via secure that pt was cleared by PT to be safe to go home. Michelle did call SW and confirmed that they plan for pt to go home. JESSY directed her to speak with the CM re: any further d/c planning questions. Social work screen completed. No social work needs currently identified. CM following and to contact SW as needed. Primary contact: pt's sister, Michelle [phone] Insurance: [facility] and Medicare A Anticipated Discharge Date: tomorrow [...] patient * Plan of Care - Emely Diaz RN - 06/21/2021 2:34 PM CDT Problem: [...] AM CDT Weekend SW received request from [facility] to f/u with client's sister Michelle to discuss discharge planning and SNF preferences. Michelle stated that she would prefer placement at [facility] and also provided [facility] and [facility] as additional options. SW sent referrals via Allscripts to the above facilities. SW to continue to follow to assist with discharge planning. KESHAV Britt, GLADYS, DAVY Weekend Data Center Operator * Plan of Care - Sarina Sorto [...] Brief Post Procedure Note Attending: Dr. Tapia Truss Assembler: Dr. Leesa Kapoor Sedation/Anesthesia: Local Pre-Op/Pre-Procedure Diagnosis: [...] 06/19/21 0700 - 06/20/21 0659 Total Total 0218-3907 5484-1747 4424-2675 Total 8090-7154 3494-9386 1967-3322 Total Intake (ml) 372.3 -- -- -- [...] History of Falling 0 ............filed at 06/19/2021 07 Secondary Diagnosis 15 ............filed at 06/19/2021 07 Ambulatory Aids 0 ............filed at 06/19/2021 07 Intravenous Therapy/Heparin/Saline Lock 20 ............filed at 06/19/2021 0700 Gait/Transferring 0 ............filed at 06/19/2021 0700 Mental Status 0 ............filed at 06/19/2021 0700 Hernandez Fall Risk Score 35 ............filed at 06/19/2021 0700 Vital Signs Report 06/18 07 - 06/19 0659 06/19 07 - 06/19 1645 Most Recent Temp (??C) 36.5 - 36.9 36.6 - 36.9 36.9 (98.4) 06/19 1519 Pulse 85 - 97 87 - 124 87 06/19 1635 Resp 18 - 22 12 - 20 12 06/19 163 SpO2 (%) 88 - 98 88 - [...] 06/17 0823 Able to turn self 06/16 190 Able to turn self Head of Bed Elevated 06/19 0700 Self regulated 06/18 1900 Self regulated 06/18 07 Self regulated 06/17 190 Self regulated 06/17 0823 Self regulated 06/16 190 Self regulated Heels/Feet 06/19 0700 Foot of bed elevated 06/18 1900 Foot of bed elevated 06/17 0823 Foot of bed elevated 06/16 1900 Foot of bed elevated Range of Motion 06/19 0700 Active;All extremities 06/18 1900 Active;All extremities 06/17 1900 Active;All extremities 06/17 0823 Active;All extremities 06/16 190 Active;All extremities Type of Device 06/19 0700 [...] baseline. -EB (r) BB (c) Level of Brohman Independent functional transfers -EB (r) BB (c) [...] be a safe option for him at [place], however, he would like to check with [...] summary -EB (r) BB (c) OT Recommendation Half-Way Facility -EB (r) BB (c) OT Recommendation/Plan [...] Effective Dates Nabil Sibley RN 12/19/20 - EB Sharon Lyon 05/20/21 - Racquel Fleming, OT 06/14/19 - OT Treatment No documentation. OT [...] Fall risk - Type of Home House -CC Home Layout One level - Home Access Stairs to enter without rails -CC Entrance Stairs-Number of Steps 1 -CC Home Mobility Equipment Wheeled walker;Single point cane;Wheelchair-manual -CC Additional Comments Pt. reports no use of AD at baseline. -CC Level of Brohman Independent functional transfers;Independent with ambulation - Lives With Family Pt. reports living with sister - Receives Help From Family FT assistance available from [facility] - Fall within the last 6 months [...] List Gait deviations;Decreased strength;Decreased endurance;Impaired balance;Decreased mobility;Pain;Edema -CC Problem List Comments Pt's L sided infection empyema/sepsis, pleural effusion results in above listed activity deficits and impairments which prevent full participation in home and community mobility-CC Plan Plan of care initiated;If this is the last note, consider this the discharge summary -CC PT Recommendation/Plan Inpatient Rehab Facility - PT Recommendation/Plan Comments pending progress - PT Frequency 5-7x/wk - Treatment/Interventions Balance Training;Bed mobility;Endurance training;Functional activity;Functional transfer training;Gait training;Neuromuscular re-education;Strengthening;Therapeutic activity;Th erapeutic exercise;Transfer training -CC PT Evaluation Complete Yes -CC User Emery (r) = Recorded By, (t) [...] chair with all needs met after session -ARMINDA Arm Band Checked;Call Light within Reach;Notified RN;Patient found in Supine;Overbed Table within Reach Left in chair reclined with call within reach, nurse notifie -CS (r) CC (c) Subjective Agreeable to Therapy -CS (r) CC (c) Agreeable to Therapy -ARMINDA Agreeable to Therapy -CS (r) CC (c) Subjective Comment -- Pt sitting in the chair upon therapist arrival in [facility]. Pt agreeable to treatment session. -ARMINDA -- [...] posture;Increase step length;Pace activity;Utilize pursed lip breathing -ARMINDA Useassistive device safely;Prevent bumping into environmental barriers [...] distal BUE and distal BLE. Nurse and COMMUNITY LIAISON notified following vitals check. Therapist and nurse [...] 06/03/21 - Mayelin Odom, PT 05/14/19 - CC Sana Hua, SY 07/23/19 - PT Notes 06/17/2021 3:13 [...] 4:36 PM CDT Problem: Patient remains at [facility]. Ensure acute medical needs are met and [...] attempted to speak with pt's sister, Michelle [phone], however SW had to leave a vm. SW will ask wkend SW to attempt to speak with pt/sister re: d/c plan. SW updated COMMUNITY LIAISON. Pt does have private insurance, so auth would also need to be obtained after pt has been accepted to a facility. Primary contact: pt's sister, Michelle [phone] Insurance: [facility] and Medicare A Anticipated Discharge Date: Tuesday SW to follow. Cat KESHAV Ayers, MARKET RESEARCH ASSOCIATE * Plan of Care - Carmen Sánchez [...] stent placement LLE who was transferred from [facility] for left empyema. He was diagnosed with [...] medication. Follow Up Plan: fax results to [phone], follow up with Dr. Molina/justyna in 2 weeks , After discharge additional questions can be directed to the clinic at [phone] and Patient has been educated about the [...] with antibacterial soap and use alcohol-based hand deputy brand inspector before touching your catheter or changing wound [...] Information Infectious Diseases Clinic : Neto [facility] [address] [place] [address] or Toll-free Important Information for Healthcare Providers: Antibiotics recommended : ceftriaxone, metronidazole, doxycyline Anticipated stop date for IV antibiotics: to be determined by infectious disease doctor Infectious disease physician saw the patient during hospital admission: Dr. Molina Recommended Laboratory Monitoring: [ x ] CBC w/differential and CMP weekly ALL RESULTS SHOULD BE FAXED TO INFECTIOUS DISEASE CLINIC AT: [phone] Cosigned by Malini Fernandez MD at 06/19/2021 [...] Marshall RN - 06/18/2021 3:43 PM CDT [facility] following for iv antibiotics at discharge if patient goes home. Patient will need iv antibiotics for 3-4 weeks more. Patient has recommendations for IRF from PT as of 06/17. OT has not seen since 06/12. Per COMMUNITY LIAISON patient may not qualify for IRF but [...] Outcome: Progressing * Plan of Care - Benedict Sen RN - 06/17/2021 11:01 [...] discussed with the patient. * Plan of Care - Sriram Redmond RRT - 06/17/2021 6:04 PM CDT Patient [...] from the hospital. Patient being diuresed. Referrals: [facility] following for possible need for IV antibiotics [...] and referrals as needed. Mariann Marshall RN, Skimmer Scoop Operator For emergency needs from 4:31pm-7:59am, please call the film critic For weekend/holiday needs from 8am-430pm, please call the Weekend Skimmer Scoop Operator . * Plan of Care - Raymon, [...] Eloina Mcfadden RN, BSN, CCDS Clinical Documentation Manager Surgery (C) [phone] [email or web address] * Plan of Care - Molly Sosa [...] Eloina Mcfadden, RN, BSN, CCDS Clinical Documentation Manager Surgery (C) [phone] [email or web address] * Provider Query - Eloina Mcfadden - [...] Eloina Mcfadden RN, BSN, CCDS Clinical Documentation Manager Surgery (C) [phone] [email or web address] * Assessment & Plan Note - Malini Fernandez MD - 06/15/2021 1:49 PM CDTAssociated Problem(s): Empyema (CMS/HCC) (HCC) The patient is a 70 y.o. male [...] medication. * Plan of Care - Elizabeth Mars, RN - 06/15/2021 12:15 PM CDT Infusion referral received. Will need to assess patient and/or family for home infusion appropriateness, verify benefits for home infusion, and educate patient/family on home infusion process. Referrals are processed between 8am - 4:30pm Tuesday - Tuesday. For after hour emergencies please call [phone]. Any referrals received after 4pm will be processed the next day. For discharge planning purposes please keep in mind that referrals can take 24 or more hours to process. Elizabeth Mars Plate Gauger [phone] * Assessment & Plan Note - Emely [...] Fellow: Odette Cook MD; David Rae MD Molded Frames Assembler: Brooklyn Gruber MD Partner Marketing Intern: Cherie Tenorio RN Partner Marketing Intern Relief: Andry Ibrahim RN Scrub Relief: Yossi [...] 12:00 AM CDT Surgeon Benny López MD. Blade Filer Pradeep Palma MD. Preop Diagnosis Left-sided empyema. [...] Hemostasis was then achieved. We placed two 28-Turkmen Silastic chest tubes, 1 posteriorly and 1 [...] start to finish. Job ID/VF Job ID: [id number] * Plan of Care - Sury Peck [...] possible Outcome: Progressing Summary: [facility] * Assessment & Plan Note [...] CDT Associated Problem(s): PVD (peripheral vascular disease) ([facility]) S/p peripheral artery angioplasty with stent placement x3. Takes Plavix at home. According to OSH records, last dose was 06/03. - hold Plavix * Assessment & Plan Note - Samra Hurtado NP - 06/11/2021 7:58 AM CDT Associated Problem(s): COPD (chronic obstructive pulmonary disease) ([facility]) Wears 2L O2 overnight, has ANDRZEJ - continue home inhaler * Assessment & Plan Note - Samra Hurtado NP - 06/11/2021 7:55 AM CDT Associated Problem(s): Hyperkalemia (Resolved 06/19/2021) - Lisinopril on hold - monitor on tele * Assessment & Plan Note - Samra Hurtado NP - 06/11/2021 7:49 AM CDT Associated Problem(s): CKD (chronic kidney disease) stage 4, GFR 15-29 ml/min ([facility]) ([facility]) At time of admission creat baseline 2.5 - renal following - Avoid other nephrotoxic medications - Monitor labs * Assessment & Plan Note - Samra Hurtado NP - 06/11/2021 7:41 AM CDT Associated Problem(s): Empyema ([facility]) ([facility]) Empyema without systemic manifestations WBC: 13.5, afebrile. [...] PM CDT) Report Final Report: No growth [facility] Urine 06/21/2021 11:1 1 PM CDT 06/22/2021 12:23 AM CDT Narrative [facility] - 06/23/2021 7:34 AM CDT Urine culture reflexed based upon urinalysis results. Testing performed by [facility] Microbiology Laboratory ([phone]) us Benny López MD LAB MICROBIOLOGY - GENERAL ORDERABLES Final Result [facility] Department [place] [address] * (ABNORMAL) Urinalysis, microscopic only (06/21/2021 11:11 PM CDT) WBC, ur 11-20(A) 0 - 5 /HPF [facility] RBC, ur 3-5(A) 0 - 2 /HPF [facility] Bacteria, ur Trace(A) [facility] Mucous, ur Present(A) [facility] Culture Reflex Comment Reflex to urine culture will be performed. [facility] Urine 06/21/2021 11:1 1 PM CDT 06/21/2021 11:27 PM CDT us Benny López MD LAB URINE ORDERAB LES Final Result [facility] [place] [address] * (ABNORMAL) Urinalysis reflex to microscopic and culture Urine (06/21/2021 11:11 PM CDT) Color, ur Straw Yellow [facility] Clarity, ur Clear Clear [facility] Specific gravity, ur 1.016 1.003 - 1.030 [facility] pH, urine 6 [facility] Protein, ur ql 1+(A) Negative [facility] Glucose, ur ql Negative Negative [facility] [facility] Ketones, ur Negative Negative [facility] Bilirubin, ur Negative Negative [facility] Blood, ur Trace(A) Negative [facility] Urobilinogen, ur <2.0 <2.0 mg/dL [facility] Nitrite, ur Negative Negative [facility] Leukocyte esterase, ur Trace(A) Negative [facility] UA reflex comment Reflex to microscopic UA will be performed. [facility] Urine 06/21/2021 11:1 1 PM CDT 06/21/2021 11:27 PM CDT Narrative [facility] - 06/22/2021 12:05 AM CDT ?? Urine pH is affected by diet, medications, systemic acid-base disturbances, and renal tubular function. ??pH may affect urinary stone formation. ??For example, urine pH below 6.0 may help reduce the tendency for calcium phosphate stones and pH greater than 6.0 may reduce the tendency for uric acid stone formation. Source: [employer]. Last revised 09-01-2017 us Benny López MD LAB MICROBIOLOGY - GENERAL ORDERABLES Final Result [facility] [place] [address] * (ABNORMAL) eGFR (06/21/2021 10:29 PM CDT) eGFR 27(L) 90 - 130 mL/min/1.7 3 m2 [facility] Comment: Interpretive Data Reference Interval Normal [...] MD LAB BLOOD ORDERAB LES Final Result [facility] [place] [address] * (ABNORMAL) CBC without differential (06/21/2021 10:29 PM CDT) WBC 10.0(H) 3.8 - 9.9 K/cumm [facility] Hgb 9.2(L) 13.0 - 17.5 g/dL [facility] Hct 30.3(L) 38.9 - 50.3 % [facility] Plt 134(L) 150 - 400 K/cumm [facility] MPV 11.0 9.1 - 12.3 fL [facility] RBC 3.21(L) 4.30 - 5.80 M/cumm [facility] MCV 94.4 81.3 - 96.4 fL [facility] MCH 28.7 27.1 - 33.3 pg [facility] MCHC 30.4(L) 32.3 - 35.7 g/dL [facility] RDW CV 14.6 11.1 - 14.9 % [facility] RDW SD 49.9(H) 35.7 - 48.1 fL [facility] NRBC abs 0.00 0.00 - 0.01 K/cumm [facility] Blood 06/21/2021 10:2 9 PM CDT 06/21/2021 10:55 PM CDT Benny López MD LAB BLOOD ORDERAB LES Final Result Performing Organization Address City/[facility]/ZIP Co de Phone Number [facility] Department [place] [address] * Phosphorus (06/21/2021 10:29 PM CDT) Phosphorus, pl 2.7 2.3 - 4.5 mg/dL [facility] Blood 06/21/2021 10:2 9 PM CDT 06/21/2021 10:54 PM CDT Benny López MD LAB BLOOD ORDERAB LES Final Result [facility] [place] [address] * Magnesium (06/21/2021 10:29 PM CDT) Magnesium 1.6 1.4 - 2.5 mg/dL [facility] Blood 06/21/2021 10:2 9 PM CDT 06/21/2021 10:54 PM CDT Benny López MD LAB BLOOD ORDERAB LES Final Result [facility] Department [place] [address] * (ABNORMAL) Basic metabolic panel (06/21/2021 10:29 PM CDT) Pathologist [facility] Sodium 138 135 - 145 mmol/L [facility] Potassium, pl 3.8 3.3 - 4.9 mmol/L [facility] Chloride 100 97 - 110 mmol/L [facility] CO2 29 22 - 32 mmol/L [facility] Anion gap 9 2 - 15 mmol/L [facility] BUN 27(H) 8 - 25 mg/dL [facility] Creatinine 2.40(H) 0.80 - 1.30 mg/dL [facility] Glucose 132 70 - 199 mg/dL [facility] Comment: Interpretive Data Fasting glucose >/= [...] 2017. Calcium 8.3(L) 8.5 - 10.3 mg/dL [facility] Blood 06/21/2021 10:2 9 PM CDT 06/21/2021 10:54 PM CDT us Benny López MD LAB BLOOD ORDERAB LES Final Result [facility] [place] [address] * (ABNORMAL) Urinalysis, microscopic only (06/20/2021 9:56 AM CDT) Pathologist [facility] WBC, ur 21-50(A) 0 - 5 /HPF [facility] RBC, ur 11-20(A) 0 - 2 /HPF [facility] Bacteria, ur Trace(A) [facility] Mucous, ur Present(A) [facility] Urine 06/20/2021 9:56 AM CDT 06/20/2021 11:17 AM CDT Benny López MD LAB URINE ORDERAB LES Final Result Performing Organization Address [facility] Co de Phone Number [facility] Department [place] [address] * Urine culture Urine, clean voided (06/20/2021 9:56 AM CDT) Report Final Report: No growth [facility] Urine, clean voided 06/20/2021 9:56 AM CDT 06/20/2021 12:03 PM CDT Narrative [facility] - 06/21/2021 1:17 PM CDT Indications for Culture:->Other (specify) Other Indication:->Recent catheterization with burning urination Testing performed by [facility] Microbiology Laboratory ([phone]) Benny López MD LAB MICROBIOLOGY - GENERAL ORDERABLES Final Result Performing Organization Address [facility] de Phone Number [facility] Department [place] [address] * (ABNORMAL) Urinalysis reflex to microscopic and culture Urine (06/20/2021 9:56 AM CDT) Color, ur Straw Yellow [facility] Clarity, ur Clear Clear [facility] Specific gravity, ur 1.016 1.003 - 1.030 [facility] pH, urine 6 [facility] Protein, ur ql 1+(A) Negative [facility] Glucose, ur ql Negative Negative [facility] Ketones, ur Negative Negative [facility] Bilirubin, ur Negative Negative [facility] Blood, ur 1+(A) Negative [facility] Urobilinogen, ur <2.0 <2.0 mg/dL [facility] Nitrite, ur Negative Negative [facility] Leukocyte esterase, ur 2+(A) Negative [facility] UA reflex comment Reflex to microscopic UA will be performed. [facility] Urine 06/20/2021 9:56 AM CDT 06/20/2021 11:17 AM CDT Narrative [facility] - 06/20/2021 11:20 AM CDT ?? Urine pH is affected by diet, medications, systemic acid-base disturbances, and renal tubular function. ??pH may affect urinary stone formation. ??For example, urine pH below 6.0 may help reduce the tendency for calcium phosphate stones and pH greater than 6.0 may reduce the tendency for uric acid stone formation. Source: [employer]. Last revised 09-01-2017 Benny López MD LAB MICROBIOLOGY - GENERAL ORDERABLES Final Result [facility] Department [place] [address] * (ABNORMAL) eGFR (06/19/2021 10:24 PM CDT) eGFR 20(L) 90 - 130 mL/min/1.7 3 m2 [facility] Comment: Interpretive Data Reference Interval Normal [...] Toth NP LAB BLOOD ORDERABLES Final Result [facility] Department [place] [address] * (ABNORMAL) Basic metabolic panel (06/19/2021 10:24 PM CDT) [facility] Sodium 139 135 - 145 mmol/L [facility] Potassium, pl 3.3 3.3 - 4.9 mmol/L [facility] Chloride 102 97 - 110 mmol/L [facility] CO2 30 22 - 32 mmol/L [facility] Anion gap 7 2 - 15 mmol/L [facility] BUN 37(H) 8 - 25 mg/dL [facility] Creatinine 3.01(H) 0.80 - 1.30 mg/dL [facility] Glucose 124 70 - 199 mg/dL [facility] Comment: Interpretive Data Fasting glucose >/= [...] 2017. Calcium 7.9(L) 8.5 - 10.3 mg/dL [facility] Blood 06/19/2021 10:2 4 PM CDT 06/19/2021 10:44 PM CDT us Milagro Toth NP LAB BLOOD ORDERABLES Final Result [facility] [place] [address] * IR Central Line Placement > 5 [...] and participated in the procedure. Dr. Landers (development vice president) was present and participated in the procedure. SEDATION: The patient did not require conscious sedation for the procedure. TECHNIQUE: ?? The risks, benefits and alternatives were discussed and informed consent was obtained. ??Prior to beginning the procedure, [place] Protocol was used to confirm the patient's [...] and participated in the procedure. Dr. Landers (development vice president) was present and participated in the procedure. SEDATION: The patient did not require conscious sedation for the procedure. TECHNIQUE: The risks, benefits and alternatives were discussed and informed consent was obtained. Prior to beginning the procedure, [place] Protocol was used to confirm the patient's [...] it. Electronically signed by: Raimundo Tapia M.D. us Emely Moss [facility] IMG IR PROCEDURES Final R esult * (ABNORMAL) eGFR (06/19/2021 1:48 AM CDT) [facility] eGFR 20(L) 90 - 130 mL/min/1.7 3 m2 [facility] Comment: Interpretive Data Reference Interval Normal [...] ORDERABLES Tyra l Result Performing Organization Address City/[facility]/ZIP Co de Phone Number [facility] Department [place] [address] * Magnesium (06/19/2021 1:48 AM CDT) Pathologist [facility] Magnesium 1.6 1.4 - 2.5 mg/dL [facility] Blood 06/19/2021 1:48 AM CDT 06/19/2021 2:08 AM CDT Vlaarie Edwards MD LAB BLOOD ORDERABLES Tyra l Result Performing Organization Address City/[facility]/ZIP Co de Phone Number [facility] Department [place] [address] * (ABNORMAL) Basic metabolic panel (06/19/2021 1:48 AM CDT) Sodium 142 135 - 145 mmol/L [facility] Potassium, pl 3.2(L) 3.3 - 4.9 mmol/L [facility] Chloride 105 97 - 110 mmol/L [facility] CO2 28 22 - 32 mmol/L [facility] Anion gap 9 2 - 15 mmol/L [facility] BUN 39(H) 8 - 25 mg/dL [facility] Creatinine 3.05(H) 0.80 - 1.30 mg/dL [facility] Glucose 88 70 - 199 mg/dL [facility] Comment: Interpretive Data Fasting glucose >/= 126 [...] 2017. Calcium 7.8(L) 8.5 - 10.3 mg/dL [facility] Blood 06/19/2021 1:48 AM CDT 06/19/2021 2:08 AM CDT us Valarie Edwards MD LAB BLOOD ORDERABLES Tyra l Result Performing Organization Address [facility]/ZIP Co de Phone Number [facility] Department [place] [address] * Urine culture Urine, clean voided (06/19/2021 12:57 AM CDT) Report Final Report: Less than 100,000 colonies/mL (clinically insignificant growth based on current clinical standards) [facility] Organism (CLINICALLY INSIGNIFICANT GROWTH [facility] Urine, clean voided 06/19/2021 12:57 AM CDT 06/19/2021 1:29 AM CDT Narrative [facility] - 06/20/2021 7:59 AM CDT Urine culture reflexed based upon urinalysis results. Testing performed by [facility] Microbiology Laboratory ([phone]) us Benny López MD LAB MICROBIOLOGY - GENERAL ORDERABLES Final Result Performing Organization Address City/[facility]/ZIP Co de Phone Number [facility] Department [place] [address] * (ABNORMAL) Urinalysis, microscopic only (06/19/2021 12:57 AM CDT) WBC, ur 21-50(A) 0 - 5 /HPF [facility] RBC, ur 21-50(A) 0 - 2 /HPF [facility] Epithelial cells, squamous, ur 1-5 0 - 5 /HPF [facility] Bacteria, ur Trace(A) [facility] Culture Reflex Comment Reflex to urine culture will be performed. [facility] Urine, clean voided 06/19/2021 12:57 AM CDT 06/19/2021 1:04 AM CDT us Benny López MD LAB URINE ORDERAB LES Final Result [facility] [place] [address] * (ABNORMAL) Urinalysis reflex to microscopic and culture Urine, clean voided (06/19/2021 12:57 AM CDT) Color, ur Straw Yellow [facility] Clarity, ur Clear Clear [facility] Specific gravity, ur 1.016 1.003 - 1.030 [facility] pH, urine 6 [facility] Protein, ur ql 2+(A) Negative [facility] Glucose, ur ql Negative Negative [facility] Ketones, ur Negative Negative [facility] Bilirubin, ur Negative Negative [facility] Blood, ur 2+(A) Negative [facility] Urobilinogen, ur <2.0 <2.0 mg/dL [facility] Nitrite, ur Negative Negative [facility] Leukocyte esterase, ur 3+(A) Negative [facility] UA reflex comment Reflex to microscopic UA will be performed. [facility] Urine, clean voided 06/19/2021 12:57 AM CDT 06/19/2021 1:04 AM CDT Narrative [facility] - 06/19/2021 1:15 AM CDT ?? Urine pH is affected by diet, medications, systemic acid-base disturbances, and renal tubular function. ??pH may affect urinary stone formation. ??For example, urine pH below 6.0 may help reduce the tendency for calcium phosphate stones and pH greater than 6.0 may reduce the tendency for uric acid stone formation. Source: [facility] [employer]. Last revised 09-01-2017 us Benny López MD LAB MICROBIOLOGY - GENERAL ORDERABLES Final Result [facility] Department [place] [address] * (ABNORMAL) eGFR (06/18/2021 9:41 AM CDT) eGFR 18(L) 90 - 130 mL/min/1.7 3 m2 [facility] Comment: Interpretive Data Reference Interval Normal [...] 9:41 AM CDT 06/18/2021 9:56 AM CDT us Emely Annie Moss [facility] LAB BLOOD ORDERABLES Tyra l Result [facility] [place] [address] * (ABNORMAL) Basic metabolic panel (06/18/2021 9:41 AM CDT) Sodium 136 135 - 145 mmol/L [facility] Potassium, pl 3.3 3.3 - 4.9 mmol/L [facility] Chloride 100 97 - 110 mmol/L [facility] CO2 27 22 - 32 mmol/L [facility] Anion gap 9 2 - 15 mmol/L [facility] BUN 45(H) 8 - 25 mg/dL [facility] Creatinine 3.30(H) 0.80 - 1.30 mg/dL [facility] Glucose 120 70 - 199 mg/dL [facility] Comment: Interpretive Data Fasting glucose >/= [...] 2017. Calcium 8.2(L) 8.5 - 10.3 mg/dL [facility] Blood 06/18/2021 9:41 AM CDT 06/18/2021 9:56 AM CDT Emely Moss [facility] LAB BLOOD ORDERABLES Tyra l Result [facility] [place] [address] * (ABNORMAL) CBC without differential (06/18/2021 9:41 AM CDT) WBC 12.5(H) 3.8 - 9.9 K/cumm [facility] Hgb 8.5(L) 13.0 - 17.5 g/dL [facility] Hct 26.9(L) 38.9 - 50.3 % [facility] Plt 184 150 - 400 K/cumm [facility] MPV 10.8 9.1 - 12.3 fL [facility] RBC 2.92(L) 4.30 - 5.80 M/cumm [facility] MCV 92.1 81.3 - 96.4 fL [facility] MCH 29.1 27.1 - 33.3 pg [facility] MCHC 31.6(L) 32.3 - 35.7 g/dL [facility] RDW CV 14.2 11.1 - 14.9 % [facility] RDW SD 47.8 35.7 - 48.1 fL [facility] NRBC abs 0.00 0.00 - 0.01 K/cumm [facility] Blood 06/18/2021 9:41 AM CDT 06/18/2021 9:56 AM CDT us Emely Moss [facility] LAB BLOOD ORDERABLES Tyra bowling Result [facility] [place] [address] * XR Chest 1 View (06/17/2021 6:25 [...] signed by: Dianne Weeks M.D. Milagro Toth [facility] XR PROCEDURES Final Re sult * (ABNORMAL) CBC without differential (06/17/2021 10:12 AM CDT) WBC 13.5(H) 3.8 - 9.9 K/cumm [facility] Hgb 8.1(L) 13.0 - 17.5 g/dL [facility] Hct 25.4(L) 38.9 - 50.3 % [facility] Plt 174 150 - 400 K/cumm [facility] MPV 10.6 9.1 - 12.3 fL [facility] RBC 2.79(L) 4.30 - 5.80 M/cumm [facility] MCV 91.0 81.3 - 96.4 fL [facility] MCH 29.0 27.1 - 33.3 pg [facility] MCHC 31.9(L) 32.3 - 35.7 g/dL [facility] RDW CV 14.0 11.1 - 14.9 % [facility] RDW SD 46.5 35.7 - 48.1 fL [facility] NRBC abs 0.00 0.00 - 0.01 K/cumm [facility] Blood 06/17/2021 10:1 2 AM CDT 06/17/2021 10:24 AM CDT Samra Hurtado [facility] LAB BLOOD ORDERABLES nal Result [facility] [place] [address] * XR Chest 1 View (06/17/2021 4:52 [...] it. Electronically signed by: Cesar Kahn M.D. Narrative 06/17/2021 11:50 AM CDT EXAMINATION: [...] signed by: Cesar Kahn M.D. Samra Hurtado [facility] XR PROCEDURES Final Result * Transfuse RBC (06/17/2021 3:44 AM CDT) Blood specimen (specimen) Benny López MD BLOOD TRANSFUSION ORDERABLES Final Result [facility] [place] [address] * Transfuse RBC: 1 Units (06/17/2021 3:44 AM CDT) Blood specimen (specimen) Benny López MD BLOOD TRANSFUSION ORDERABLES Final Result * Prepare RBC: 1 Units (06/17/2021 12:26 AM CDT) Product code [id number] [facility] Unit Number [id number] [facility] Product Blood Type OPOS [facility] Dispense Status PRESUMED TRANSFUSED [facility] Blood 06/17/2021 12:2 6 AM CDT 06/17/2021 12:26 AM CDT Narrative [facility] - 06/18/2021 12:50 AM CDT Are special requirements needed? (all products are leukoreduced)->No Date required:-[id number] LRRBC # of [id number] Reasons:-Hgb <7 g/dL} Benny López MD BLOOD BANK PRODUC T ORDERABLES Final Result [facility] [place] [address] * (ABNORMAL) Differential, auto (06/16/2021 11:15 PM CDT) Neutrophil abs 11.8(H) 1.7 - 6.5 K/cumm [facility] Imm gran abs 0.3(H) 0.0 - 0.1 K/cumm [facility] Lymphocyte abs 0.7(L) 0.8 - 3.3 K/cumm [facility] Monocyte abs 0.7 0.2 - 0.8 K/cumm [facility] Eosinophil abs 0.2 0.0 - 0.5 K/cumm [facility] Basophil abs 0.0 0.0 - 0.1 K/cumm [facility] Neutrophil pct 85.9 % [facility] Comment: Interpretive Data Percent cell count reference ranges are not reported, since discordance with absolute values may lead to misinterpretation of CBC data. Current Interpretive Data was last revised on 2017. Imm gran pct 2.0 % [facility] Comment: Interpretive Data Percent cell count reference ranges are not reported, since discordance with absolute values may lead to misinterpretation of CBC data. Current Interpretive Data was last revised on 2017. Lymphocyte pct 5.4 % [facility] Comment: Interpretive Data Percent cell count reference ranges are not reported, since discordance with absolute values may lead to misinterpretation of CBC data. Current Interpretive Data was last revised on 2017. Monocyte pct 5.2 % [facility] Comment: Interpretive Data Percent cell count reference ranges are not reported, since discordance with absolute values may lead to misinterpretation of CBC data. Current Interpretive Data was last revised on 2017. Eosinophil pct 1.2 % [facility] Comment: Interpretive Data Percent cell count reference ranges are not reported, since discordance with absolute values may lead to misinterpretation of CBC data. Current Interpretive Data was last revised on 2017. Basophil pct 0.3 % [facility] Comment: Interpretive Data Percent cell count reference ranges are not reported, since discordance with absolute values may lead to misinterpretation of CBC data. Current Interpretive Data was last revised on 2017. Blood 06/16/2021 11:1 5 PM CDT 06/16/2021 11:30 PM CDT Margie Serrato MD LAB BLOOD ORDERABLES Final Re sult Performing Organization Address [facility]/ZIP Co de Phone Number [facility] [place] [address] * (ABNORMAL) CBC with auto differential (06/16/2021 11:15 PM CDT) WBC 13.7(H) 3.8 - 9.9 K/cumm [facility] Hgb 6.8(L) 13.0 - 17.5 g/dL [facility] Hct 22.0(L) 38.9 - 50.3 % [facility] Plt 153 150 - 400 K/cumm [facility] MPV 10.7 9.1 - 12.3 fL [facility] RBC 2.42(L) 4.30 - 5.80 M/cumm [facility] MCV 90.9 81.3 - 96.4 fL [facility] MCH 28.1 27.1 - 33.3 pg [facility] MCHC 30.9(L) 32.3 - 35.7 g/dL [facility] RDW CV 14.2 11.1 - 14.9 % [facility] RDW SD 46.8 35.7 - 48.1 fL [facility] NRBC abs 0.00 0.00 - 0.01 K/cumm [facility] Blood 06/16/2021 11:1 5 PM CDT 06/16/2021 11:30 PM CDT Margie Serrato MD LAB BLOOD ORDERABLES Final Re sult [facility] [place] [address] * (ABNORMAL) eGFR (06/16/2021 10:23 PM CDT) Pathologist [facility] eGFR 17(L) 90 - 130 mL/min/1.7 3 m2 [facility] Comment: Interpretive Data Reference Interval Normal [...] 06/16/2021 10:44 PM CDT us Samra Hurtado [facility] LAB BLOOD ORDERABLES Fi nal Result Performing Organization Address [facility]/ZIP Co de Phone Number [facility] [place] [address] * (ABNORMAL) CBC without differential (06/16/2021 10:23 PM CDT) WBC 16.1(H) 3.8 - 9.9 K/cumm [facility] Hgb 6.1(C) 13.0 - 17.5 g/dL [facility] Comment:Critical result call ed to and read back by BELTRAN BRAUN RN on 06 16 2021 at 2251 [facility] Hct 19.8(L) 38.9 - 50.3 % [facility] Plt 197 150 - 400 K/cumm [facility] MPV 10.4 9.1 - 12.3 fL [facility] RBC 2.17(L) 4.30 - 5.80 M/cumm [facility] MCV 91.2 81.3 - 96.4 fL [facility] MCH 28.1 27.1 - 33.3 pg [facility] MCHC 30.8(L) 32.3 - 35.7 g/dL [facility] RDW CV 14.0 11.1 - 14.9 % [facility] RDW SD 46.3 35.7 - 48.1 fL [facility] NRBC abs 0.00 0.00 - 0.01 K/cumm [facility] Blood 06/16/2021 10:2 3 PM CDT 06/16/2021 10:44 PM CDT [facility] BLOOD ORDERABLES Fi nal Result [facility] Department [place] [address] * (ABNORMAL) Basic metabolic panel (06/16/2021 10:23 PM CDT) Pathologist [facility] Sodium 138 135 - 145 mmol/L [facility] Potassium, pl 3.8 3.3 - 4.9 mmol/L [facility] Chloride 102 97 - 110 mmol/L [facility] CO2 29 22 - 32 mmol/L [facility] Anion gap 7 2 - 15 mmol/L [facility] BUN 54(H) 8 - 25 mg/dL [facility] Creatinine 3.53(H) 0.80 - 1.30 mg/dL [facility] Glucose 123 70 - 199 mg/dL [facility] Comment: Interpretive Data Fasting glucose >/= [...] 2017. Calcium 8.2(L) 8.5 - 10.3 mg/dL [facility] Blood 06/16/2021 10:2 3 PM CDT 06/16/2021 10:44 PM CDT Samra Hurtado [facility] LAB BLOOD ORDERABLES [facility] Result [facility] [place] [address] * (ABNORMAL) eGFR (06/16/2021 2:09 PM CDT) eGFR 17(L) 90 - 130 mL/min/1.7 3 m2 [facility] Comment: Interpretive Data Reference Interval Normal [...] 2:09 PM CDT 06/16/2021 2:40 PM CDT us Samra Hurtado [facility]IA[facility] LAB BLOOD ORDERABLES Fi nal Result [facility] Department [place] [address] * (ABNORMAL) Basic metabolic panel (06/16/2021 2:09 PM CDT) Sodium 137 135 - 145 mmol/L [facility] Potassium, pl 4.2 3.3 - 4.9 mmol/L [facility] Chloride 99 97 - 110 mmol/L [facility] CO2 29 22 - 32 mmol/L [facility] Anion gap 9 2 - 15 mmol/L [facility] BUN 54(H) 8 - 25 mg/dL [facility] Creatinine 3.46(H) 0.80 - 1.30 mg/dL [facility] Glucose 93 70 - 199 mg/dL [facility] Comment: Interpretive Data Fasting glucose >/= [...] 2017. Calcium 8.5 8.5 - 10.3 mg/dL [facility] Blood 06/16/2021 2:09 PM CDT 06/16/2021 2:40 PM CDT Samra Hannah Hurtado [facility] LAB BLOOD ORDERABLES Fi nal Result Performing Organization Address [facility] Co de Phone Number [facility] Department [place] [address] * (ABNORMAL) eGFR (06/15/2021 9:55 PM CDT) [facility] eGFR 17(L) 90 - 130 mL/min/1.7 3 m2 [facility] Comment: Interpretive Data Reference Interval Normal [...] CDT 06/15/2021 10:10 PM CDT Emely Moss [facility]IA[facility] LAB BLOOD ORDERABLES Tyra l Result Performing Organization Address City/[facility] Co de Phone Number [facility] Department [place] [address] * (ABNORMAL) CBC without differential (06/15/2021 9:55 PM CDT) [facility] WBC 18.4(H) 3.8 - 9.9 K/cumm [facility] Hgb 7.5(L) 13.0 - 17.5 g/dL [facility] Hct 23.9(L) 38.9 - 50.3 % [facility] Plt 200 150 - 400 K/cumm [facility] MPV 10.8 9.1 - 12.3 fL [facility] RBC 2.54(L) 4.30 - 5.80 M/cumm [facility] MCV 94.1 81.3 - 96.4 fL [facility] MCH 29.5 27.1 - 33.3 pg [facility] MCHC 31.4(L) 32.3 - 35.7 g/dL [facility] RDW CV 14.2 11.1 - 14.9 % [facility] RDW SD 48.3(H) 35.7 - 48.1 fL [facility] NRBC abs 0.00 0.00 - 0.01 K/cumm [facility] Blood 06/15/2021 9:55 PM CDT 06/15/2021 10:09 PM CDT us Emely Moss [facility] LAB BLOOD ORDERABLES Tyra bowling Result [facility] Department [place] [address] * (ABNORMAL) Basic metabolic panel (06/15/2021 9:55 PM CDT) [facility] Sodium 136 135 - 145 mmol/L [facility] Potassium, pl 5.0(H) 3.3 - 4.9 mmol/L [facility] Chloride 101 97 - 110 mmol/L [facility] CO2 26 22 - 32 mmol/L [facility] Anion gap 9 2 - 15 mmol/L [facility] BUN 56(H) 8 - 25 mg/dL [facility] Creatinine 3.45(H) 0.80 - 1.30 mg/dL [facility] Glucose 141 70 - 199 mg/dL [facility] Comment: Interpretive Data Fasting glucose >/= [...] 2017. Calcium 8.7 8.5 - 10.3 mg/dL [facility] Blood 06/15/2021 9:55 PM CDT 06/15/2021 10:10 PM CDT Emely Moss [facility] LAB BLOOD ORDERABLES Tyra l Result Performing Organization Address City/[facility] Co de Phone Number [facility] Department [place] [address] * (ABNORMAL) Urinalysis, microscopic only (06/15/2021 3:44 PM CDT) WBC, ur 0-5 0 - 5 /HPF [facility] RBC, ur 0-2 0 - 2 /HPF [facility] Epithelial cells, squamous, ur 1-5 0 - 5 /HPF [facility] Mucous, ur Present(A) [facility] Culture Reflex Comment Reflex conditions for urine culture (WBC >10) not met. [facility] Urine 06/15/2021 3:44 PM CDT 06/15/2021 4:24 PM CDT Emely Moss [facility] LAB URINE ORDERABLES Tyra l Result Performing Organization Address [facility] Co de Phone Number [facility] Department [place] [address] * (ABNORMAL) Urinalysis reflex to microscopic and culture Urine (06/15/2021 3:44 PM CDT) Color, ur Straw Yellow [facility] Clarity, ur Clear Clear [facility] Specific gravity, ur 1.013 1.003 - 1.030 [facility] pH, urine 6 [facility] Protein, ur ql 1+(A) Negative [facility] Glucose, ur ql Negative Negative [facility] Ketones, ur Negative Negative [facility] Bilirubin, ur Negative Negative [facility] Blood, ur 2+(A) Negative [facility] Urobilinogen, ur <2.0 <2.0 mg/dL [facility] Nitrite, ur Negative Negative [facility] Leukocyte esterase, ur Negative Negative [facility] UA reflex comment Reflex to microscopic UA will be performed. [facility] Urine 06/15/2021 3:44 PM CDT 06/15/2021 3:56 PM CDT us Emely Moss NP LAB MICROBIOLOGY - GENERA L ORDERABLES Final Result Performing Organization Address City/[facility]/ZIP Co de Phone Number [facility] Department [place] [address] * Creatinine, urine, random (06/15/2021 2:07 PM CDT) Creatinine Ur 80.7 mg/dL [facility] Comment: Interpretive Data No reference range established. Current interpretive data was last revised 2019. Urine 06/15/2021 2:07 PM CDT 06/15/2021 2:16 PM CDT us Benny López MD LAB URINE ORDERAB LES Final Result Performing Organization Address City/[facility]/ZIP Co de Phone Number [facility] Department [place] [address] * Chloride, urine, random (06/15/2021 2:07 PM CDT) Chloride, ur 28 mmol/L [facility] Comment: Interpretive Data No reference range established. Current interpretive data was last revised 2019. Urine (Urine, Clean Catch) 06/15/2021 2:07 PM CDT 06/15/2021 2:16 PM CDT Benny López MD LAB URINE ORDERAB LES Final Result Performing Organization Address [facility] Co de Phone Number [facility] [place] [address] * Potassium, urine, random (06/15/2021 2:07 PM CDT) Potassium conc, ur 48.5 mmol/L [facility] Comment: Interpretive Data No reference range established. Current interpretive data was last revised 2019. Urine (Urine, Clean Catch) 06/15/2021 2:07 PM CDT 06/15/2021 2:16 PM CDT Benny López MD LAB URINE ORDERAB LES Final Result Performing Organization Address [facility] Co de Phone Number [facility] Department [place] [address] * Sodium, urine, random (06/15/2021 2:07 PM CDT) Sodium, ur 35 mmol/L [facility] Comment: Interpretive Data No reference range established. Current interpretive data was last revised 2019. Urine (Urine, Clean Catch) 06/15/2021 2:07 PM CDT 06/15/2021 2:16 PM CDT Benny López MD LAB URINE ORDERAB LES Final Result Performing Organization Address City/[facility]/ZIP Co de Phone Number [facility] Department [place] [address] * (ABNORMAL) eGFR (06/15/2021 10:47 AM CDT) eGFR 17(L) 90 - 130 mL/min/1.7 3 m2 [facility] Comment: Interpretive Data Reference Interval Normal [...] 06/15/2021 11:20 AM CDT us Emely Moss COMM[facility]IAISON LAB BLOOD ORDERABLES Tyra l Result [facility] Department [place] [address] * Type and screen (06/15/2021 10:47 AM CDT) ABO Rh O Positive [facility] Yonathan, indirect Negative [facility] Blood 06/15/2021 10:4 7 AM CDT 06/15/2021 11:16 AM CDT Narrative [facility] - 06/15/2021 12:11 PM CDT Has the patient had Daratumumab or Isatuximab in the past 6 months?->Unknown Emely Moss COMM[facility]IAISON LAB BLOOD BANK TEST ORDER DANI Final Result [facility] Department [place] [address] * (ABNORMAL) Basic metabolic panel (06/15/2021 10:47 AM CDT) Pathologist [facility] Sodium 136 135 - 145 mmol/L [facility] Potassium, pl 5.2(H) 3.3 - 4.9 mmol/L [facility] Chloride 99 97 - 110 mmol/L [facility] CO2 26 22 - 32 mmol/L [facility] Anion gap 11 2 - 15 mmol/L [facility] BUN 55(H) 8 - 25 mg/dL [facility] Creatinine 3.43(H) 0.80 - 1.30 mg/dL [facility] Glucose 156 70 - 199 mg/dL [facility] Comment: Interpretive Data Fasting glucose >/= [...] 2017. Calcium 8.5 8.5 - 10.3 mg/dL [facility] Blood 06/15/2021 10:4 7 AM CDT 06/15/2021 11:20 AM CDT Emely Moss [facility] LAB BLOOD ORDERABLES Tyra l Result Performing Organization Address [facility] de Phone Number [facility] [place] [address] * (ABNORMAL) Blood gas, arterial (06/15/2021 10:47 AM CDT) pH, Art 7.39 7.35 - 7.45 [facility] PCO2, Arterial 40 35 - 45 mmHg [facility] PO2, Arterial 96 83 - 108 mmHg [facility] HCO3 Art (Calculated) 24 20 - 30 mmol/L [facility] BE, art -1 mmol/L [facility] Comment: Interpretive Data No Reference Range Established Current Interpretive Data was last revised on 2017 O2 Sat Art (Measured) 97(H) 90 - 95 % [facility] Blood 06/15/2021 10:4 7 AM CDT 06/15/2021 10:51 AM CDT Emely Moss COMMUN[facility]IAISON LAB BLOOD ORDERABLES Tyra l Result Performing Organization Address [facility] de Phone Number [facility] Department [place] [address] * XR Chest 1 View (06/15/2021 8:53 [...] Potassium, whole blood (06/15/2021 12:05 AM CDT) [facility] Signature Potassium, bld 5.0(H) 3.3 - 4.9 mmol/L [facility] Comment: Interpretive Data Unable to assess hemolysis. ??Invitro hemolysis causes falsely elevated potassium. Current Interpretive Data was last revised on 2020. Blood 06/15/2021 12:0 5 AM CDT 06/15/2021 12:12 AM CDT Benny López MD LAB BLOOD ORDERAB LES Final Result [facility] Department [place] [address] * (ABNORMAL) eGFR (06/14/2021 8:33 PM CDT) eGFR 20(L) 90 - 130 mL/min/1.7 3 m2 [facility] Comment: Interpretive Data Reference Interval Normal [...] MD LAB BLOOD ORDERAB LES Final Result [facility] Department [place] [address] * Phosphorus (06/14/2021 8:33 PM CDT) Phosphorus, pl 4.2 2.3 - 4.5 mg/dL [facility] Blood 06/14/2021 8:33 PM CDT 06/14/2021 8:48 PM CDT eBnny López MD LAB BLOOD ORDERAB LES Final Result [facility] Department [place] [address] * Magnesium (06/14/2021 8:33 PM CDT) [facility] Magnesium 1.8 1.4 - 2.5 mg/dL [facility] Blood 06/14/2021 8:33 PM CDT 06/14/2021 8:48 PM CDT us Benny López MD LAB BLOOD ORDERAB LES Final Result Performing Organization Address City/[facility] de Phone Number [facility] Department [place] [address] * (ABNORMAL) Basic metabolic panel (06/14/2021 8:33 PM CDT) [facility] Sodium 136 135 - 145 mmol/L [facility] Potassium, pl 5.2(H) 3.3 - 4.9 mmol/L [facility] Chloride 103 97 - 110 mmol/L [facility] CO2 25 22 - 32 mmol/L [facility] Anion gap 8 2 - 15 mmol/L [facility] BUN 56(H) 8 - 25 mg/dL [facility] Creatinine 3.02(H) 0.80 - 1.30 mg/dL [facility] Glucose 127 70 - 199 mg/dL [facility] Comment: Interpretive Data Fasting glucose >/= [...] 2017. Calcium 8.3(L) 8.5 - 10.3 mg/dL [facility] Blood 06/14/2021 8:33 PM CDT 06/14/2021 8:48 PM CDT Benny López MD LAB BLOOD ORDERAB LES Final Result Performing Organization Address City/[facility]/ZIP Co de Phone Number [facility] Department [place] [address] * (ABNORMAL) CBC without differential (06/14/2021 8:33 PM CDT) WBC 21.0(H) 3.8 - 9.9 K/cumm [facility] Hgb 7.2(L) 13.0 - 17.5 g/dL [facility] Hct 23.4(L) 38.9 - 50.3 % [facility] Plt 182 150 - 400 K/cumm [facility] MPV 9.9 9.1 - 12.3 fL [facility] RBC 2.53(L) 4.30 - 5.80 M/cumm [facility] MCV 92.5 81.3 - 96.4 fL [facility] MCH 28.5 27.1 - 33.3 pg [facility] MCHC 30.8(L) 32.3 - 35.7 g/dL [facility] RDW CV 14.1 11.1 - 14.9 % [facility] RDW SD 47.8 35.7 - 48.1 fL [facility] NRBC abs 0.00 0.00 - 0.01 K/cumm [facility] Blood 06/14/2021 8:33 PM CDT 06/14/2021 8:50 PM CDT Benny López MD LAB BLOOD ORDERAB LES Final Result [facility] Department [place] [address] * (ABNORMAL) eGFR (06/14/2021 12:22 AM CDT) eGFR 22(L) 90 - 130 mL/min/1.7 3 m2 [facility] Comment: Interpretive Data Reference Interval Normal [...] ORDERAB LES Final Result Performing Organization Address City/[facility] Co de Phone Number [facility] Department [place] [address] * Critical Result Callback Chemistry (06/14/2021 12:22 AM CDT) Date Notified [id number] [facility] Time Notified 117 [facility] TestName eryn munoz [facility] Called/Read Back Dayanna Linares [facility] Credentials RN [facility] Called By anamika [facility] Blood 06/14/2021 12:2 2 AM CDT 06/14/2021 12:43 AM CDT us Benny López MD LAB BLOOD ORDERAB LES Final Result [facility] Department [place] [address] * (ABNORMAL) Basic metabolic panel (06/14/2021 12:22 AM CDT) Sodium 136 135 - 145 mmol/L [facility] Potassium, pl 5.1(H) 3.3 - 4.9 mmol/L [facility] Chloride 102 97 - 110 mmol/L [facility] CO2 25 22 - 32 mmol/L [facility] Anion gap 9 2 - 15 mmol/L [facility] BUN 50(H) 8 - 25 mg/dL [facility] Creatinine 2.83(H) 0.80 - 1.30 mg/dL [facility] Glucose 131 70 - 199 mg/dL [facility] Comment: Interpretive Data Fasting glucose >/= [...] 2017. Calcium 8.1(L) 8.5 - 10.3 mg/dL [facility] Blood 06/14/2021 12:2 2 AM CDT 06/14/2021 12:43 AM CDT us Benny López MD LAB BLOOD ORDERAB LES Final Result [facility] Department [place] [address] * (ABNORMAL) CBC without differential (06/14/2021 12:22 AM CDT) Pathologist [facility] WBC 25.8(H) 3.8 - 9.9 K/cumm [facility] Hgb 7.3(L) 13.0 - 17.5 g/dL [facility] Hct 24.0(L) 38.9 - 50.3 % [facility] Plt 222 150 - 400 K/cumm [facility] MPV 9.6 9.1 - 12.3 fL [facility] RBC 2.58(L) 4.30 - 5.80 M/cumm [facility] MCV 93.0 81.3 - 96.4 fL [facility] MCH 28.3 27.1 - 33.3 pg [facility] MCHC 30.4(L) 32.3 - 35.7 g/dL [facility] RDW CV 14.3 11.1 - 14.9 % [facility] RDW SD 48.6(H) 35.7 - 48.1 fL [facility] NRBC abs 0.00 0.00 - 0.01 K/cumm [facility] Blood 06/14/2021 12:2 2 AM CDT 06/14/2021 12:43 AM CDT us Benny López MD LAB BLOOD ORDERAB LES Final Result [facility] [place] [address] * (ABNORMAL) Vancomycin level trough (06/14/2021 12:22 AM CDT) Vancomycin trough 39.2(C) 10.0 - 20.0 mcg/mL [facility] Blood 06/14/2021 12:2 2 AM CDT 06/14/2021 12:43 AM CDT us Benny López MD LAB BLOOD ORDERAB LES Final Result [facility] Department [place] [address] * (ABNORMAL) eGFR (06/13/2021 7:51 AM CDT) eGFR 26(L) 90 - 130 mL/min/1.7 3 m2 [facility] Comment: Interpretive Data Reference Interval Normal [...] MD LAB BLOOD ORDERABLES Tyra l Result [facility] Department [place] [address] * (ABNORMAL) Basic metabolic panel (06/13/2021 7:51 AM CDT) Pathologist [facility] Sodium 137 135 - 145 mmol/L [facility] Potassium, pl 5.3(H) 3.3 - 4.9 mmol/L [facility] Chloride 100 97 - 110 mmol/L [facility] CO2 27 22 - 32 mmol/L [facility] Anion gap 10 2 - 15 mmol/L [facility] BUN 43(H) 8 - 25 mg/dL [facility] Creatinine 2.45(H) 0.80 - 1.30 mg/dL [facility] Glucose 119 70 - 199 mg/dL [facility] Comment: Interpretive Data Fasting glucose >/= [...] 2017. Calcium 8.4(L) 8.5 - 10.3 mg/dL [facility] Blood 06/13/2021 7:51 AM CDT 06/13/2021 8:03 AM CDT us Marco A Ward MD LAB BLOOD ORDERABLES Tyra l Result Performing Organization Address [facility] Co de Phone Number [facility] Department [place] [address] * (ABNORMAL) CBC without differential (06/13/2021 7:51 AM CDT) WBC 31.3(H) 3.8 - 9.9 K/cumm [facility] Hgb 8.2(L) 13.0 - 17.5 g/dL [facility] Hct 25.6(L) 38.9 - 50.3 % [facility] Plt 214 150 - 400 K/cumm [facility] MPV 10.8 9.1 - 12.3 fL [facility] RBC 2.79(L) 4.30 - 5.80 M/cumm [facility] MCV 91.8 81.3 - 96.4 fL [facility] MCH 29.4 27.1 - 33.3 pg [facility] MCHC 32.0(L) 32.3 - 35.7 g/dL [facility] RDW CV 14.2 11.1 - 14.9 % [facility] RDW SD 47.9 35.7 - 48.1 fL [facility] NRBC abs 0.00 0.00 - 0.01 K/cumm [facility] Blood 06/13/2021 7:51 AM CDT 06/13/2021 8:03 AM CDT us Marco A Ward MD LAB BLOOD ORDERABLES Tyra bowling Result [facility] [place] [address] * XR Chest 1 View - in [...] pH, Art POC 7.37 7.35 - 7.45 [facility] pCO2, Art POC 41 35 - 45 mmHg [facility] pO2, Art POC 70(L) 83 - 108 mmHg [facility] Na, POC 136 135 - 145 mmol/L [facility] K POC 4.9 3.3 - 4.9 mmol/L [facility] Comment: Interpretive Data Unable to assess hemolysis. ??Invitro hemolysis causes falsely elevated potassium. Current Interpretive Data was last revised on 2020. Cl, POC 104 97 - 110 mmol/L [facility] Ionized Ca, POC 4.64 4.50 - 5.10 mg/dL [facility] Glucose, POC 103 70 - 199 mg/dL [facility] Lactate, POC 0.5(L) 0.7 - 2.2 mmol/L [facility] SO2 (martine) arterial 96(H) 90 - 95 % [facility] Base excess, POC -1.5 mmol/L [facility] HCO3, Art POC 24 20 - 30 mmol/L [facility] Hct, POC 26.0(L) 41.4 - 51.6 % [facility] O2 Sat, Art POC (Calc) 93 % [facility] Total Hb, POC 8.7(L) 13.8 - 17.2 g/dL [facility] Blood 06/12/2021 6:03 PM CDT 06/12/2021 6:03 PM CDT us Benny López MD LAB POCT ORDERABL ES - DEVICE Final Result [facility] [place] [address] * (ABNORMAL) POC Blood Gas and Chemistries, Arterial - (06/12/2021 5:22 PM CDT) pH, Art POC 7.31(L) 7.35 - 7.45 [facility] pCO2, Art POC 52(H) 35 - 45 mmHg [facility] pO2, Art POC 98 83 - 108 mmHg [facility] Na, POC 136 135 - 145 mmol/L [facility] K POC 5.1(H) 3.3 - 4.9 mmol/L [facility] Comment: Interpretive Data Unable to assess hemolysis. ??Invitro hemolysis causes falsely elevated potassium. Current Interpretive Data was last revised on 2020. Cl, POC 104 97 - 110 mmol/L [facility] Ionized Ca, POC 4.79 4.50 - 5.10 mg/dL [facility] Glucose, POC 104 70 - 199 mg/dL [facility] Lactate, POC 0.6(L) 0.7 - 2.2 mmol/L [facility] SO2 (martine) arterial 99(H) 90 - 95 % [facility] Base excess, POC -0.8 mmol/L [facility] HCO3, Art POC 26 20 - 30 mmol/L [facility] Hct, POC 27.0(L) 41.4 - 51.6 % [facility] O2 Sat, Art POC (Calc) 97 % [facility] Total Hb, POC 9.0(L) 13.8 - 17.2 g/dL [facility] Blood 06/12/2021 5:22 PM CDT 06/12/2021 5:22 PM CDT us Benny López MD LAB POCT ORDERABL ES - DEVICE Final Result [facility] Department [place] [address] * (ABNORMAL) POC Blood Gas and Chemistries, Arterial - (06/12/2021 5:03 PM CDT) pH, Art POC 7.24(L) 7.35 - 7.45 [facility] pCO2, Art POC 64(H) 35 - 45 mmHg [facility] pO2, Art POC 185(H) 83 - 108 mmHg [facility] Na, POC 135 135 - 145 mmol/L [facility] K POC 5.3(H) 3.3 - 4.9 mmol/L [facility] [facility] Comment: Interpretive Data Unable to assess hemolysis. ??Invitro hemolysis causes falsely elevated potassium. Current Interpretive Data was last revised on 2020. Cl, POC 105 97 - 110 mmol/L [facility] Ionized Ca, POC 4.85 4.50 - 5.10 mg/dL [facility] Glucose, POC 107 70 - 199 mg/dL [facility] Lactate, POC <0.5(L) 0.7 - 2.2 mmol/L [facility] SO2 (martine) arterial 100(H) 90 - 95 % [facility] Base excess, POC -1.4 mmol/L [facility] HCO3, Art POC 27 20 - 30 mmol/L [facility] Hct, POC 26.0(L) 41.4 - 51.6 % [facility] O2 Sat, Art POC (Calc) 100 % [facility] Total Hb, POC 8.8(L) 13.8 - 17.2 g/dL [facility] Blood 06/12/2021 5:03 PM CDT 06/12/2021 5:03 PM CDT Benny López MD LAB POCT ORDERABL ES - DEVICE Final Result [facility] Department [place] [address] * Tissue aerobic and anaerobic culture and gram stain Tissue Pleural (06/12/2021 4:19 PM CDT) Direct Specimen Exam Stain: Rare polymorphonuclear leukocytes seen. No organisms seen. [facility] Report Final Report: No growth [facility] Tissue (Pleural) 06/12/2021 4:19 PM CDT 06/12/2021 6:37 PM CDT Narrative [facility] - 06/16/2021 1:41 PM CDT Left Pleural Specimen collected in the operating room. Testing performed by [facility] Microbiology Laboratory ([phone]) Specimens submitted from normally sterile body sites [...] GENERAL ORDERABLES Final Result Performing Organization Address [facility] de Phone Number [facility] Department [place] [address] * (ABNORMAL) POC Blood Gas and Chemistries, Arterial - (06/12/2021 4:02 PM CDT) pH, Art POC 7.24(L) 7.35 - 7.45 [facility] pCO2, Art POC 55(H) 35 - 45 mmHg [facility] pO2, Art POC 90 83 - 108 mmHg [facility] Na, POC 133(L) 135 - 145 mmol/L [facility] K POC 5.0(H) 3.3 - 4.9 mmol/L [facility] Comment: Interpretive Data Unable to assess hemolysis. ??Invitro hemolysis causes falsely elevated potassium. Current Interpretive Data was last revised on 2020. Cl, POC 105 97 - 110 mmol/L [facility] Ionized Ca, POC 4.98 4.50 - 5.10 mg/dL [facility] Glucose, POC 103 70 - 199 mg/dL [facility] Lactate, POC 0.6(L) 0.7 - 2.2 mmol/L [facility] SO2 (martine) arterial 99(H) 90 - 95 % [facility] Base excess, POC -4.5 mmol/L [facility] HCO3, Art POC 24 20 - 30 mmol/L [facility] Hct, POC 26.0(L) 41.4 - 51.6 % [facility] O2 Sat, Art POC (Calc) 95 % [facility] Total Hb, POC 8.5(L) 13.8 - 17.2 g/dL [facility] Blood 06/12/2021 4:02 PM CDT 06/12/2021 4:02 PM CDT us Benny López MD LAB POCT ORDERABL ES - DEVICE Final Result [facility] Department [place] [address] * (ABNORMAL) Aerobic and anaerobic culture and gram stain Pleural fluid (06/12/2021 3:31 PM CDT) Direct Specimen Exam Stain: Abundant polymorphonuclear leukocytes seen. Abundant Gram Positive Cocci [facility] Report Final Report: Few Streptococcus intermedius Organism failed to grow adequately for susceptibility testing. Rare Staphylococcus hominis This isolate is presumed to be resistant to clindamycin based on detection of inducible clindamycin resistance. Clindamycin may still be effective in some patients. (.) [facility] Organism STREPTOCOCCUS INTERMEDIUS [facility] Organism STAPHYLOCOCCUS HOMINIS [facility] Pleural fluid 06/12/2021 3:3 1 PM CDT 06/12/2021 6:34 PM CDT Narrative [facility] - 06/19/2021 2:48 PM CDT Pleural Fluid Fluid specimen received. Specimen collected in the operating room. Testing performed by [facility] Microbiology Laboratory ([phone]) Specimens submitted from normally sterile body sites [...] Staphylococcus hominis Ceftriaxone (PAWEL) INTERPRETATI ON Resistant us Benny López MD LAB MICROBIOLOGY - GENERAL ORDERABLES Final Result [facility] Department [place] [address] * (ABNORMAL) POC Blood Gas and Chemistries, Arterial - (06/12/2021 2:48 PM CDT) pH, Art POC 7.32(L) 7.35 - 7.45 [facility] pCO2, Art POC 44 35 - 45 mmHg [facility] pO2, Art POC 334(H) 83 - 108 mmHg [facility] Na, POC 134(L) 135 - 145 mmol/L [facility] K POC 4.3 3.3 - 4.9 mmol/L [facility] Comment: Interpretive Data Unable to assess hemolysis. ??Invitro hemolysis causes falsely elevated potassium. Current Interpretive Data was last revised on 2020. Cl, POC 106 97 - 110 mmol/L [facility] Ionized Ca, POC 4.71 4.50 - 5.10 mg/dL [facility] Glucose, POC 87 70 - 199 mg/dL [facility] Lactate, POC <0.5(L) 0.7 - 2.2 mmol/L [facility] SO2 (martine) arterial 100(H) 90 - 95 % [facility] Base excess, POC -3.5 mmol/L [facility] HCO3, Art POC 23 20 - 30 mmol/L [facility] Hct, POC 28.0(L) 41.4 - 51.6 % [facility] O2 Sat, Art POC (Calc) 100 % [facility] Total Hb, POC 9.3(L) 13.8 - 17.2 g/dL [facility] Blood 06/12/2021 2:48 PM CDT 06/12/2021 2:48 PM CDT us Benny López MD LAB POCT ORDERABL ES - DEVICE Final Result [facility] Department [place] [address] * Prepare RBC: 2 Units (06/12/2021 1:52 PM CDT) Product code [id number] [facility] Unit Number [id number] [facility] Product Blood Type OPOS [facility] Dispense Status RETURNED [facility] Product code [id number] [facility] Unit Number [id number] [id number] [facility] Product Blood Type OPOS [facility] Dispense Status RETURNED [facility] Blood 06/12/2021 1:52 PM CDT 06/12/2021 2:01 PM CDT Narrative [facility] - 06/13/2021 9:15 AM CDT Are special requirements needed? (all products are leukoreduced)->No Date required:-[id number] LRRBC # of [id number] Reasons:-Intra-op transfusion} us Odette Cook MD BLOOD BANK PRODUCT ORDE ROBBIE Final Result Performing Organization Address [facility] [place] [address] * Critical Result Callback Chemistry (06/12/2021 12:13 PM CDT) Date Notified [id number] [facility] Time Notified 1258 [facility] TestName Vancomycin Tr [facility] Called/Read Back Sury Peck [facility] Credentials RN [facility] Called By HSR [facility] Blood 06/12/2021 12:1 3 PM CDT 06/12/2021 12:30 PM CDT Samra Hurtado [facility] LAB BLOOD ORDERABLES Fi nal Result Performing Organization Address [facility] de Phone Number [facility] [place] [address] * (ABNORMAL) Vancomycin level trough (06/12/2021 12:13 PM CDT) [facility] Vancomycin trough 44.1(C) 10.0 - 20.0 mcg/mL [facility] Blood 06/12/2021 12:1 3 PM CDT 06/12/2021 12:30 PM CDT Samra Hurtado [facility] LAB BLOOD ORDERABLES Fi nal Result Performing Organization Address [facility] [place] [address] * (ABNORMAL) eGFR (06/11/2021 9:34 PM CDT) Pathologist [facility] eGFR 27(L) 90 - 130 mL/min/1.7 3 m2 [facility] Comment: Interpretive Data Reference Interval Normal [...] CDT 06/11/2021 10:05 PM CDT Samra Hurtado [facility] LAB BLOOD ORDERABLES Fi nal Result Performing Organization Address [facility] de Phone Number [facility] [place] [address] * aPTT (06/11/2021 9:34 PM CDT) aPTT 33 27 - 37 sec [facility] Comment: Interpretive Data Therapeutic heparin range: 60.0 - 94.0 seconds. Based on correlation with therapeutic heparin activity range of 0.3-0.7 Units/mL. Current interpretive data was last revised on 2020. Blood 06/11/2021 9:34 PM CDT 06/11/2021 10:04 PM CDT us Emely Moss [facility] LAB BLOOD ORDERABLES Tyra l Result Performing Organization Address City/[facility] Co de Phone Number [facility] Department [place] [address] * (ABNORMAL) Protime-INR (06/11/2021 9:34 PM CDT) Pathologist [facility] PT 15.7(H) 9.5 - 13.6 sec [facility] INR 1.4(H) 0.9 - 1.2 [facility] Comment: Interpretive data Oral anticoagulant therapeutic ranges: Venous thromboembolism prophylaxis or treatment: 2.0-3.0 CARDIOLOGY Standard range: 2.0-3.0 High-intensity range: 2.5-3.5 Refer to indication-specific guidelines for appropriate target ranges for prosthetic heart valve replacement. Current interpretive data was last revised on 2019. Blood 06/11/2021 9:34 PM CDT 06/11/2021 10:04 PM CDT Emely Moss [facility] LAB BLOOD ORDERABLES Tyra l Result Performing Organization Address [facility] de Phone Number [facility] Department [place] [address] * (ABNORMAL) Basic metabolic panel (06/11/2021 9:34 PM CDT) Pathologist [facility] Sodium 135 135 - 145 mmol/L [facility] Potassium, pl 5.1(H) 3.3 - 4.9 mmol/L [facility] Chloride 101 97 - 110 mmol/L [facility] CO2 27 22 - 32 mmol/L [facility] Anion gap 7 2 - 15 mmol/L [facility] BUN 47(H) 8 - 25 mg/dL [facility] Creatinine 2.38(H) 0.80 - 1.30 mg/dL [facility] Glucose 102 70 - 199 mg/dL [facility] Comment: Interpretive Data Fasting glucose >/= [...] 2017. Calcium 8.6 8.5 - 10.3 mg/dL [facility] Blood 06/11/2021 9:34 PM CDT 06/11/2021 10:05 PM CDT Samra Hurtado [facility] LAB BLOOD ORDERABLES Fi nal Result [facility] Department [place] [address] * (ABNORMAL) CBC without differential (06/11/2021 9:34 PM CDT) WBC 26.4(H) 3.8 - 9.9 K/cumm [facility] Hgb 9.2(L) 13.0 - 17.5 g/dL [facility] Hct 29.6(L) 38.9 - 50.3 % [facility] Plt 196 150 - 400 K/cumm [facility] MPV 10.8 9.1 - 12.3 fL [facility] RBC 3.24(L) 4.30 - 5.80 M/cumm [facility] MCV 91.4 81.3 - 96.4 fL [facility] MCH 28.4 27.1 - 33.3 pg [facility] MCHC 31.1(L) 32.3 - 35.7 g/dL [facility] RDW CV 14.1 11.1 - 14.9 % [facility] RDW SD 47.2 35.7 - 48.1 fL [facility] NRBC abs 0.00 0.00 - 0.01 K/cumm [facility] Blood 06/11/2021 9:34 PM CDT 06/11/2021 9:54 PM CDT Samra Hannah Hurtado [facility] LAB BLOOD ORDERABLES Fi nal Result Performing Organization Address [facility]/ZIP Co de Phone Number [facility] Department [place] [address] * (ABNORMAL) eGFR (06/11/2021 11:58 AM CDT) eGFR 27(L) 90 - 130 mL/min/1.7 3 m2 [facility] Comment: Interpretive Data Reference Interval Normal [...] 8 AM CDT 06/11/2021 12:23 PM CDT Samra Hannah Hurtado [facility] LAB BLOOD ORDERABLES Fi nal Result Performing Organization Address City/[facility]/ZIP Co de Phone Number [facility] Department [place] [address] * (ABNORMAL) Basic metabolic panel (06/11/2021 11:58 AM CDT) Sodium 130(L) 135 - 145 mmol/L [facility] Potassium, pl 5.2(H) 3.3 - 4.9 mmol/L [facility] Chloride 96(L) 97 - 110 mmol/L [facility] CO2 26 22 - 32 mmol/L [facility] Anion gap 8 2 - 15 mmol/L [facility] BUN 43(H) 8 - 25 mg/dL [facility] Creatinine 2.36(H) 0.80 - 1.30 mg/dL [facility] Glucose 76 70 - 199 mg/dL [facility] Comment: Interpretive Data Fasting glucose >/= [...] 2017. Calcium 8.6 8.5 - 10.3 mg/dL [facility] Blood 06/11/2021 11:5 8 AM CDT 06/11/2021 12:23 PM CDT us Samra Hurtado NP LAB BLOOD ORDERABLES Fi nal Result [facility] [place] [address] * Check Sample (06/11/2021 5:22 AM CDT) ABO Rh O Positive [facility] HCLL OTHER 06/11/2021 5:22 AM CDT 06/11/2021 6:37 AM CDT us Benny López MD LAB BLOOD ORDERAB LES Final Result Performing Organization Address [facility] Co de Phone Number [facility] Department [place] [address] * ECG 12 lead (06/11/2021 2:23 AM CDT) Ventricular Rate EKG/Min 83 BPM [facility] Atrial Rate 83 BPM [facility] HI-Interval (MSEC) 154 ms [facility] QRS-Interval (MSEC) 134 ms [facility] QT-Interval (MSEC) 380 ms [facility] QTc 446 ms [facility] P [place] 53 degrees [facility] R [place] 8 degrees [facility] T [place] 82 degrees [facility] Diagnosis Atrial-sensed ventricular-pace d rhythm (see lead 111) Nonspecific ST segment abnormalities consistent with ischemia,metabol ic abnormalities,dr rodriguez,etc. No previous ECGs available Confirmed by KERI SINGH M.D ([id number]) on 06/12/2021 2:28:10 PM [facility] 06/11/2021 2:23 AM CDT 06/12/2021 2:28 PM CDT us Benny López MD ECG ORDERABLES F inal Result Performing Organization Address [facility] de Phone Number [facility] * (ABNORMAL) Potassium, whole blood (06/11/2021 1:55 AM CDT) Potassium, bld 5.4(H) 3.3 - 4.9 mmol/L [facility] Comment: Interpretive Data Unable to assess hemolysis. ??Invitro hemolysis causes falsely elevated potassium. Current Interpretive Data was last revised on 2020. Blood 06/11/2021 1:55 AM CDT 06/11/2021 2:02 AM CDT us Benny López MD LAB BLOOD ORDERAB LES Final Result Performing Organization Address [facility] Co de Phone Number [facility] Department [place] [address] * Type and screen (06/11/2021 1:55 AM CDT) Yonathan, indirect Negative [facility] ABO Rh O Positive [facility] Blood 06/11/2021 1:55 AM CDT 06/11/2021 2:21 AM CDT Narrative [facility] - 06/11/2021 3:16 AM CDT Has the patient had Daratumumab or Isatuximab in the past 6 months?->Unknown Benny López MD LAB BLOOD BANK TE ST ORDERABLES Final Result [facility] [place] [address] * XR Chest 1 View (06/10/2021 11:52 [...] * (ABNORMAL) eGFR (06/10/2021 11:04 PM CDT) [facility] Signature eGFR 27(L) 90 - 130 mL/min/1.7 3 m2 [facility] Comment: Interpretive Data Reference Interval Normal [...] MD LAB BLOOD ORDERAB LES Final Result [facility] [place] [address] * (ABNORMAL) Differential, auto (06/10/2021 11:04 PM CDT) Neutrophil abs 26.8(H) 1.7 - 6.5 K/cumm [facility] Imm gran abs 2.5(H) 0.0 - 0.1 K/cumm [facility] Lymphocyte abs 0.8 0.8 - 3.3 K/cumm [facility] Monocyte abs 1.8(H) 0.2 - 0.8 K/cumm [facility] Eosinophil abs 0.1 0.0 - 0.5 K/cumm [facility] Basophil abs 0.1 0.0 - 0.1 K/cumm [facility] Neutrophil pct 83.6 % [facility] Comment: Interpretive Data Percent cell count reference ranges are not reported, since discordance with absolute values may lead to misinterpretation of CBC data. Current Interpretive Data was last revised on 2017. Imm gran pct 7.7 % [facility] Comment: Interpretive Data Percent cell count reference ranges are not reported, since discordance with absolute values may lead to misinterpretation of CBC data. Current Interpretive Data was last revised on 2017. Lymphocyte pct 2.4 % [facility] Comment: Interpretive Data Percent cell count reference ranges are not reported, since discordance with absolute values may lead to misinterpretation of CBC data. Current Interpretive Data was last revised on 2017. Monocyte pct 5.7 % [facility] Comment: Interpretive Data Percent cell count reference ranges are not reported, since discordance with absolute values may lead to misinterpretation of CBC data. Current Interpretive Data was last revised on 2017. Eosinophil pct 0.4 % [facility] Comment: Interpretive Data Percent cell count reference ranges are not reported, since discordance with absolute values may lead to misinterpretation of CBC data. Current Interpretive Data was last revised on 2017. Basophil pct 0.2 % [facility] Comment: Interpretive Data Percent cell count reference ranges are not reported, since discordance with absolute values may lead to misinterpretation of CBC data. Current Interpretive Data was last revised on 2017. Blood 06/10/2021 11:0 4 PM CDT 06/11/2021 12:42 AM CDT Benny López MD LAB BLOOD ORDERAB LES Final Result [facility] [place] [address] * Phosphorus (06/10/2021 11:04 PM CDT) Phosphorus, pl 3.0 2.3 - 4.5 mg/dL [facility] Blood 06/10/2021 11:0 4 PM CDT 06/11/2021 12:42 AM CDT Benny López MD LAB BLOOD ORDERAB LES Final Result [facility] [place] [address] * Magnesium (06/10/2021 11:04 PM CDT) Magnesium 1.9 1.4 - 2.5 mg/dL [facility] Blood 06/10/2021 11:0 4 PM CDT 06/11/2021 12:42 AM CDT Benny López MD LAB BLOOD ORDERAB LES Final Result [facility] [place] [address] * (ABNORMAL) Comprehensive metabolic panel (06/10/2021 11:04 PM CDT) Sodium 130(L) 135 - 145 mmol/L [facility] Potassium, pl 5.6(H) 3.3 - 4.9 mmol/L [facility] Chloride 96(L) 97 - 110 mmol/L [facility] CO2 26 22 - 32 mmol/L [facility] Anion gap 8 2 - 15 mmol/L [facility] BUN 42(H) 8 - 25 mg/dL [facility] Creatinine 2.35(H) 0.80 - 1.30 mg/dL [facility] Glucose 92 70 - 199 mg/dL [facility] Comment: Interpretive Data Fasting glucose >/= [...] 2017. Calcium 9.1 8.5 - 10.3 mg/dL [facility] Bilirubin, total 0.3 0.1 - 1.2 mg/dL [facility] Protein, pl 6.9 6.5 - 8.5 g/dL [facility] Albumin 2.8(L) 3.5 - 5.0 g/dL [facility] Alk phos 121 40 - 130 Units/L [facility] ALT 24 7 - 55 Units/L [facility] AST 26 10 - 50 Units/L [facility] Blood 06/10/2021 11:0 4 PM CDT 06/11/2021 12:42 AM CDT us Benny López MD LAB BLOOD ORDERAB LES Final Result [facility] [place] [address] * (ABNORMAL) CBC with auto differential (06/10/2021 11:04 PM CDT) WBC 32.0(H) 3.8 - 9.9 K/cumm [facility] Hgb 10.5(L) 13.0 - 17.5 g/dL [facility] Hct 32.8(L) 38.9 - 50.3 % [facility] Plt 186 150 - 400 K/cumm [facility] MPV 11.4 9.1 - 12.3 fL [facility] RBC 3.59(L) 4.30 - 5.80 M/cumm [facility] MCV 91.4 81.3 - 96.4 fL [facility] MCH 29.2 27.1 - 33.3 pg [facility] MCHC 32.0(L) 32.3 - 35.7 g/dL [facility] RDW CV 13.9 11.1 - 14.9 % [facility] RDW SD 46.8 35.7 - 48.1 fL [facility] NRBC abs 0.00 0.00 - 0.01 K/cumm [facility] Blood 06/10/2021 11:0 4 PM CDT 06/11/2021 12:42 AM CDT us Benny López MD LAB BLOOD ORDERAB LES Final Result [facility] [place] [address] * US Outside Reference (06/10/2021 10:52 PM CDT) Impressions [facility] - 06/10/2021 10:52 PM CDT These images are for Reference purposes only and have not been reviewed by [facility]. ??There will be no report generated by a [facility] Radiologist. Narrative [facility] - 06/10/2021 10:52 PM CDT EXAMINATION: ??Images For Reference Purposes Only Valarie Edwards MD IMG US PROCEDURES Final R esult Performing Organization Address City/[facility]/ZIP Co de Phone Number [email or web address] * XR Outside Reference (06/10/2021 10:51 PM CDT) Impressions [facility] - 06/10/2021 10:51 PM CDT These images are for Reference purposes only and have not been reviewed by [facility]. ??There will be no report generated by a [facility] Radiologist. Narrative [facility] - 06/10/2021 10:51 PM CDT EXAMINATION: ??Images For Reference Purposes Only Valarie Edwards MD IMG XR PROCEDURES Final R esult Performing Organization Address [facility] de Phone Number [email or web address] * XR Outside Reference (06/10/2021 10:50 PM CDT) Impressions [email or web address] - 06/10/2021 10:50 PM CDT These images are for Reference purposes only and have not been reviewed by [facility]. ??There will be no report generated by a [facility] Radiologist. Narrative [facility] - 06/10/2021 10:50 PM CDT EXAMINATION: ??Images For Reference Purposes Only Valarie Edwards MD IMG XR PROCEDURES Final R esult Performing Organization Address [facility] de Phone Number [email or web address] * NM Outside Reference (06/10/2021 10:49 PM CDT) Impressions [facility] - 06/10/2021 10:49 PM CDT These images are for Reference purposes only and have not been reviewed by [facility]. ??There will be no report generated by a [facility] Radiologist. Narrative RAD_PACS[facility] - 06/10/2021 10:49 PM CDT EXAMINATION: ??Images For Reference Purposes Only Valarie Edwards MD IMG NM PROCEDURES Final R esult Performing Organization Address [facility] Co de Phone Number RAD_[email or web address] * CT Body Outside Reference (06/10/2021 10:48 PM CDT) Impressions [facility] - 06/10/2021 10:48 PM CDT These images are for Reference purposes only and have not been reviewed by [facility]. ??There will be no report generated by a [facility] Radiologist. Narrative [facility] - 06/10/2021 10:48 PM CDT EXAMINATION: ??Images For Reference Purposes Only us Valarie Edwards MD IMG CT PROCEDURES Final R esult Performing Organization Address [facility] de Phone Number [email or web address] * US Outside Reference (06/10/2021 10:47 PM CDT) Impressions RAD_PACS[facility] - 06/10/2021 10:47 PM CDT These images are for Reference purposes only and have not been reviewed by [facility]. ??There will be no report generated by a [facility] Radiologist. Narrative RAD_PACS_[facility] - 06/10/2021 10:47 PM CDT EXAMINATION: ??Images For Reference Purposes Only us Valarie Edwards MD IMG US PROCEDURES Final R esult Performing Organization Address [facility] de Phone Number [email or web address] * CT [...] images may or may not represent the [place] source data set and thus may contain changes that may lower the accuracy of this second-opinion interpretation. Electronically signed by: Bartolome Kathleen M.D. , PHD Narrative 06/11/2021 10:08 AM CDT EXAMINATION: RADIOLOGY CONSULTATION ON OUTSIDE IMAGING STUDY STUDY INITIALLY PERFORMED: 06/08/2021 at [facility]. TYPE OF STUDY: Multiple CT images of [...] IMAGING STUDY STUDY INITIALLY PERFORMED: 06/08/2021 at [facility]. 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), wheezing, Starting on Tue06/14/21 at 1925 Given 06/15/2021 10:52 PM CDT 2.5 mg Given 06/14/2021 10:11 PM CDT 2.5 mg amLODIPine (NORVASC) tablet 10 mg 10 [...] open or otherwise manipulate tablet/capsule., Indications: constipationIndications:constipation bupivacaine (MARCAINE) 0.5 % (5 mg/mL) preservative free injection As needed, Starting on Tue06/12/21 at 1630, Intra-Op Given 06/12/2021 4:30 PM CDT [address] calcium carbonate (TUMS) chewable tablet 500 mg [...] Given 06/22/2021 9:37 PM CDT 12.5 mg cefTRIAXone (ROCEPHIN) 2,000 mg/20 mL in sterile [...] last reorder) on 06/13/21 at 2145 Given 06/22/2021 9:37 PM CDT [...] CDT 30 mg Ri ght Lower Abdomen hydrocortisone 2.5 % cream topical, 2 times daily, First dose on Tue06/21/21 at 2100, Apply to affected area: rash Given 06/23/2021 9:03 AM CDT Given 06/22/2021 10:18 AM CDT Given 06/21/2021 9:00 PM CDT lidocaine (LIDODERM) 5 % patch 2 patch [...] 06/21/2021 9:54 AM CDT 2 patches Back metroNIDAZOLE (FLAGYL) tablet 500 mg 500 mg, [...] PRN, 1st line for pain, Starting on Tue06/21/21 at 0133, Indications: PainIndications:Pain Given 06/23/2021 6:56 [...] Given 06/17/2021 9:54 AM CDT 17 g ramelteon (ROZEREM) tablet 8 mg 8 mg, oral, Nightly PRN, sleep, Starting on Tue06/13/21 at 2059, Indications: Sleep-Onset InsomniaIndications:Sleep-Onset Insomnia Given 06/22/2021 9:37 PM CDT 8 m g Given 06/21/2021 12:05 AM CDT 8 mg Given 06/13/2021 9:10 PM CDT 8 mg sodium chloride 0.9% flush 0.5-20 mL 0.5-20 [...] type, size, and protocol. sodium chloride 0.9% irrigation As needed, Starting on Tue06/12/21 at 1428, Intra-Op Given 06/12/2021 2:28 PM CDT 3,000 mL Surgical Site sterile water irrigation As needed, Starting on Tue06/12/21 at 1429, Intra-Op Given 06/12/2021 2:29 PM CDT 1,000 mL tamsulosin (FLOMAX) extended release capsule 0.4 mg [...] 8 hours PRN, breakthrough pain, Starting on 06/20/21 at 0912 Given 06/20/2021 10:09 PM CDT 50 m g Given 06/20/2021 1:14 PM CDT 50 mg umeclidinium (INCRUSE ELLIPTA) 62.5 mcg/actuation inhaler 62.5 mcg 62.5 mcg (1 puff), inhalation, Daily, First dose (after last reorder) on 06/14/21 at 1230 Given 06/23/2021 10:20 AM CDT 62.5 mcg Given 06/22/2021 8:48 AM CDT 62.5 mcg Given 06/21/2021 11:48 AM CDT 62.5 mcg documented in this encounter Discontinued Medications Medication [...] Diaz RN)1513 (Given - Provider: Emely Diaz RN)2211 (Given - Provider: Ofelia Cody RN) 0329 (Given - Provider: Ofelia Cody RN)1017 (Given - Provider: Jyoti Rivera, RN)1549 (Given - Provider: Jyoti Rivera, MARY)2136 (Given - Provider: Emely Chase, MARY) 0651 (Not Given - Provider: Emely Chase, MARY - Reason: Patient/family refused)1128 (Given - Provider: Sury Peck RN) amLODIPine (NORVASC) tablet 10 mg 10 [...] Diaz RN) 1018 (Given - Provider: Jyoti Rivera, MARY) 1128 (Given - Provider: Sury Peck, RN) carvediloL (COREG) tablet 12.5 mg 12.5 mg, oral, 2 times daily, First dose (after last modification) on Tue06/22/21 at 2100, Hold sys BP <100 2137 (Given - Provider: Emely Chase RN) 0816 (Given - Provider: Sury Peck, RN) carvediloL (COREG) tablet 6.25 mg (CANCELED) 6.25 mg, oral, 2 times daily, First dose (after last modification) on Tue06/15/21 at 2100, Hold sys BP <100 0937 (Given - Provider: Emely Diaz RN)2210 (Given - Provider: Ofelia Cody RN) 0842 (Given - Provider: Jyoti Rivera, MARY) cefTRIAXone (ROCEPHIN) 2,000 mg/20 mL in sterile water (premix) 2,000 mg 2,000 mg, intravenous, at 1,200 mL/hr, Administer over 1 Minutes, Every 24 hours scheduled, First dose on Tue06/15/21 at 1430, Indications: empyema 0956 (Given - Provider: Emely Diaz RN) 0841 (Given - Provider: Jyoti Rivera, MARY) 0903 (Given - Provider: Sury Peck, RN) cloNIDine (CATAPRES) tablet 0.1 mg 0.1 mg, oral, 2 times daily, First dose (after last reorder) on 06/13/21 at 2145, On hold since 06/15/2021 at 1027 until manually unheld 0900 (Dose Auto Held)2100 (Dose Auto Held) 0900 (Dose Auto Held)2100 (Dose Auto Held) 0900 (Canceled Entry - Provider: Sury Peck RN)1707 (Unheld by Provider - Provider: Automatic Discharge Provider) doxepin (SINEquan) capsule 25 mg 25 mg, oral, Nightly, First dose (after last reorder) on Tue06/13/21 at 2145 2210 (Given - Provider: Ofelia [...] Cody RN) 2136 (Given - Provider: Emely Chase, MARY) hydrocortisone 2.5 % cream topical, 2 times daily, First dose on Tue06/21/21 at 2100, Apply to affected area: rash 2100 (Given - Provider: Ofelia Cody RN) 1018 (Given - Provider: Jyoti Rivera RN)2152 (Not Given - Provider: Emely Chase RN [...] Diaz RN)2212 (Medication Removed - Provider: Ofelia Cody, RN) 0843 (Medication Applied - Provider: Jyoti Rivera RN)2048 (Medication Removed - Provider: Emely Chase RN) 0816 (Medication Applied - Provider: Sury Peck [...] Cody RN) 0841 (Given - Provider: Jyoti Rivera RN)1549 (Given - Provider: Jyoti Rivera RN)2137 (Given - Provider: Emely Chase RN) 0816 (Given - Provider: Sury Peck, MARY) pantoprazole DR (PROTONIX) extended release tablet 40 mg 40 mg, oral, Daily, First dose on Tue06/11/21 at 0900, Do not crush, chew, cut, dissolve, open or otherwise manipulate tablet/capsule., Indications: Treatment of Non-Bleeding Gastric Disorder 0935 (Given - Provider: Emely Diaz RN) 0842 (Given - Provider: Jyoti Rivera RN) 0816 (Given - Provider: Sury Peck, [...] Cody RN)1342 (Given - Provider: Jyoti Rivera, MARY)213 (Given - Provider: Emely Chase RN) 0656 (Not Given - Provider: Emely Chase RN - Reason: Other) sodium chloride 0.9% flush 0.5-20 mL 0.5-20 mL, intra-catheter, Every 8 hours scheduled, First dose on Tue06/12/21 at 2200, Flush volume based on line type and size. 0413 (Given - Provider: Ofelia Cody RN)1324 (Given - Provider: Emely Diaz RN)2213 (Given - Provider: Ofelia Cody RN) 0559 (Given - Provider: Ofelia Cody RN)1342 (Given - Provider: Jyoti Rivera RN)2137 (Given - Provider: Emely Chase RN) 0657 (Not Given - Provider: Emely Chase RN - Reason: Patient/family refused) sodium chloride 0.9% flush 5-10 mL 5-10 mL, intra-catheter, Every 12 hours scheduled, First dose on 06/22/21 at 1145, Recovery (IR), Flush volume based on line type, size, and protocol. 1127 (Given - Provider: Jyoti Rivera, RN)2138 (Given - Provider: Emely Chase, MARY) 0903 (Given - Provider: Sury Peck, RN) tamsulosin (FLOMAX) extended release capsule 0.4 mg 0.4 mg, oral, Daily with dinner, First dose on Chiara 06/11/21 at 1800, Do not crush, chew, cut, dissolve, open or otherwise manipulate tablet/capsule. 0937 (Given - Provider: Emely Diaz RN) 0842 (Given - Provider: Jyoti Rivera RN) 0816 (Given - Provider: Sury Peck, [...] 2.5 mg, nebulization, 3 times daily PRN (security incident response engineer), wheezing, Starting on 06/14/21 at 1925 bisacodyl EC (DULCOLAX EC) tablet 10 mg 10 mg, oral, Daily PRN, constipation, If no results 24 hours after polyethylene glycol (MIRALAX). May give bisacodyl supp if not tolerating PO), Starting on 06/10/21 at 2101, Do not crush, chew, cut, [...] Tue06/10/21 at 2101, Indications: Nausea and Vomiting 1822 (Given - Provider: Emely Diaz RN - Comment: MD carballo)1829 (Canceled Entry - Provider: Emely Diaz RN) [...] Cody RN) 2137 (Given - Provider: Emely hCase RN) sodium chloride 0.9% flush 0.5-20 mL [...] 8 hours PRN, breakthrough pain, Starting on 06/20/21 at 0912 Linked Groups Order Group 1: [...] Count Last Ordered Date First Ordered Date carvediloL (COREG) tablet 12.5 mg 1 021 doxycycline (VIBRAMYCIN) tab let/capsule 100 mg 1 06/22/2021 magnesium sulfate 4 g/100 mL in water (premix) 4 g 1 06/22/2021 potassium chloride (KLOR-CON ) packet 20 mEq 1 06/22/2021 sodium chloride 0.9% flush 5-10 mL 1 2020 sodium chloride 0.9% flush 5-20 mL 1 2020 hydrocortisone 2.5 % cream 1 06/21/2021 oxyCODONE (ROXICODONE) tablet 5 mg 5 202006/12/2021 potassium chloride (KLOR-CON ) packet 40 mEq 1 06/20/2021 potassium chloride ER (KLOR- CON) extended release tablet 40 mEq 1 06/20/2021 traMADoL (ULTRAM) tablet 50 mg 2 06/20/2021 06/10/2021 heparin 100 unit/mL injection 1 06/19/2021 lidocaine PF (XYLOCAINE) 10 mg/mL (1 %) preservative free injection 1 06/19/2021 magnesium sulfate 2 g/50 mL in water (premix) 2 g 1 06/19/2021 potassium chloride ER (KLOR- CON) extended release tablet 20 mEq 1 06/19/2021 guaiFENesin (ROBITUSSIN) 20 mg/mL oral liquid 200 mg 1 06/17/2021 lactulose 0.67 gram/mL oral solution 20 g 1 06/17/2021 magnesium hydroxide (MILK OF MAGNESIA) 80 mg/mL (33.3 mg/mL as elemental magnesium) oral suspension 30 mL 1 06/17/2021 sodium chloride 0.9% IVPB 0-250 mL 1 2020 acetaminophen (TYLENOL) tablet 1,000 mg 2 1 06/12/2021 furosemide (LASIX) 10 mg/mL injection 40 mg 2 06/16/2021 06/12/2021 HYDROmorphone (DILAUDID) injection 0.2 mg 3 06/16/2021 06/12/2021 polyethylene glycol (MIRALAX) packet 17 g 3 06/16/2021 06/10/2021 senna-docusate (PERICOLACE) 8.6-50 mg per tablet 1 tablet 1 06/16/2021 sodium zirconium cyclosilica te (LOKELMA) packet 10 g 3 06/16/2021 06/11/2021 acetaminophen (TYLENOL) tablet 650 mg 2 06/10/2021 carvediloL (COREG) tablet 6.25 mg 1 cefTRIAXone (ROCEPHIN) 2,000 mg/20 mL in sterile water (premix) 2,000 mg 1 06/15/2021 lidocaine (LIDODERM) 5 % patch 2 patch 2 linezolid (ZYVOX) tablet 600 mg 1 metroNIDAZOLE (FLAGYL) tablet 500 mg 1 05/23 albuterol 2.5 mg/0.5 mL nebu lizer solution 2.5 mg 5 06/14/2021 06/10/2021 linezolid (ZYVOX) 600 mg/300 mL in dextrose 5% (premix) 600 mg 1 06/14/2021 senna 1.76 mg/mL syrup 8.8 mg 1 06/14/2021 umeclidinium (INCRUSE ELLIPT A) 62.5 mcg/actuation inhaler 62.5 mcg 3 06/14/2021 amLODIPine (NORVASC) tablet 10 mg 2 021 06/10/2021 atorvastatin (LIPITOR) tablet 40 mg 2 06/1306/10/2021 calcium carbonate (TUMS) racheal wable tablet 500 mg 1 06/13/2021 carvediloL (COREG) tablet 37.5 mg 2 021 06/10/2021 cefepime (MAXIPIME) 2,000 mg /20 mL in sterile water (premix) 2,000 mg 2 06/13/2021 06/10/20 cloNIDine (CATAPRES) tablet 0.1 mg 2 202006/10/2021 doxepin (SINEquan) capsule 25 mg 2 06/13/20 21 06/10/2021 ramelteon (ROZEREM) tablet 8 mg 2 06/10/2021 enoxaparin (LOVENOX) syringe 30 mg 1 2020 fentaNYL (SUBLIMAZE) preserv ative free injection 50 mcg 1 06/12/2021 gabapentin (NEURONTIN) capsule 300 mg 2 06/11/2021 HYDROmorphone (DILAUDID) injection 0.4 mg 1 06/12/2021 HYDROmorphone in 0.9% sodium chloride (DILAUDID) 20 mg/100 mL (0.2 mg/mL) cassette (premix) 1 06/12/2021 ipratropium (ATROVENT) 0.02 % nebulizer solution 0.5 mg 1 06/12/2021 Lactated Ringer's (LR) infusion 1 [...] 06/1206/10/2021 sodium chloride 0.9% flush 0.5-20 mL 5 05/2306/10/2021 sodium chloride 0.9% solution 1,000 mL 1 sodium chloride 0.9% infusion 1 06/11/2021 vancomycin 1500 mg/515 mL in sodium chloride 0.9% (premix) 1,500 mg 2 06/11/2021 06/10/20 acetaminophen (TYLENOL) 32 m g/mL oral solution 650 mg 1 06/10/2021 acetaminophen (TYLENOL) suppository 650 mg 1 06/10/2021 albuterol HFA (PROVENTIL HFA ,VENTOLIN HFA,PROAIR HFA) 90 mcg/actuation inhaler 2 puff 2 06/10/2021 apixaban (ELIQUIS) tablet 2.5 mg 1 06/10/20 bisacodyL (DULCOLAX) suppository 10 mg 1 bisacodyl EC (DULCOLAX EC) tablet 10 mg 1 1 clopidogreL (PLAVIX) tablet 75 mg 1 021 hydroCHLOROthiazide (HYDRODI URIL) tablet 12.5 mg 1 06/10/2021 lisinopriL (PRINIVIL,ZESTRIL) tablet 20 mg 1 06/10/2021 ondansetron ODT (ZOFRAN-ODT) disintegrating tablet 4 mg 1 06/10/[address] (PROTONIX) e xtended release tablet 40 mg 1 06/10/2021 tamsulosin (FLOMAX) extended release capsule 0.4 mg 1 06/10/2021 Imaging Orders Without Results Count Last Order [...] 06/11/2021 documented in this encounter Care Teams Grader Tender Relationship Specialty Start Date End Date Ross Espinosa MD [address] [place] [address] PCP - General 06/11/21 03/02/22 documented as of this encounter
--- OUTSIDE RECORDS SUMMARY | 2024-09-12 15:49 | XMS_ITS | Encounter Summary ---
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
--- OUTSIDE RECORDS SUMMARY | 2024-09-12 15:49 | XMS_ITS | Encounter Summary ---
Author Organization [facility] Address [address] [place] [address] Care Team Providers Care Plant Inspector Name Role Phone Ross Espinosa MD Primary Care Provider [phone] Encounter Details Date Type Department Care Team (Late st Contact Info) Description 05/28/2021 Orders Only [facility] Cardiology [address] [place] [address] Josiah Lay MD [address] [address] Bilateral carotid artery stenosis; Bilateral carotid bruits; Claudication (CMS/HCC) (HCC); PAD (peripheral artery disease) (CMS/HCC) ([facility]) Social History Tobacco Use Types Packs/Day Years Used Date Smoking Tobacco: Former Cigarettes Q uit: 08/22/2009 Smokeless Tobacco: Never Sex and Gender Information Value Date Recorded Sex Assigned at Not on file Legal Sex Male 1:43 PM CDT 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 Sexual Orientation Not on file documented as of this encounter Plan of Treatment Not on file documented as of this encounter Visit Diagnoses Diagnosis Bilateral carotid artery stenosis Occlusion and stenosis of carotid artery without mention of cerebral infarction Bilateral carotid bruits Claudication (HCC) Unspecified peripheral vascular disease PAD (peripheral artery disease) (HCC) Unspecified peripheral vascular disease documented in this encounter Orders Imaging Orders Without Results Count Last Order ed Date First Ordered Date US ARTERIAL DOPPLER LOWER EX TREMITY BILATERAL 1 05/28/2021 US CAROTIDS DUPLEX BILATERAL 1 05/28/2021 documented in this encounter Care Teams Plant Inspector Relationship Specialty Start Date End Date Ross Espinosa MD [address] [place] [address] PCP - General Internal Medicine 03/24/21 06/09/21 documented as of this encounter
--- OUTSIDE RECORDS SUMMARY | 2024-09-12 15:49 | XMS_ITS | Encounter Summary ---
Author Organization [facility] Healthcare Address [address] [place] [address] Care Team Providers Care Green Tire Inspector Name Role Phone Unknown, Notinfile Primary Care Provider Unavail able Encounter Details Date Type Department Care Team (Latest Contact Info) Description 06/10/2021 10:44 PM CDT - 06/10/2021 10:46 PM CDT Hospital Encounter [facility] [address] [place] [address] Discharge Disposition: Discharge to home or self care Social History Tobacco Use Types Packs/Day Years Used Date Smoking Tobacco: Former Cigarettes Q uit: 08/22/2009 Smokeless Tobacco: Never Sex and Gender Information Value Date Recorded Sex Assigned at Not on file Legal Sex Male 1:43 PM CDT 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 Electronically signed by: Bartolome Kathleen M.D. , PHD Narrative 06/11/2021 10:08 AM CDT EXAMINATION: RADIOLOGY CONSULTATION ON OUTSIDE IMAGING STUDY STUDY INITIALLY PERFORMED: 06/08/2021 at [facility]. TYPE OF STUDY: Multiple CT images [...] IMAGING STUDY STUDY INITIALLY PERFORMED: 06/08/2021 at [facility]. TYPE OF STUDY: Multiple CT images [...] images may or may not represent the [place] source data set and thus may contain changes that may lower the accuracy of this second-opinion interpretation. Electronically signed by: Bartolome Kathleen M.D. , PHD us Valarie Edwards MD IMG CT PROCEDURES Final R esult documented in this encounter Visit Diagnoses Not on filedocumented in this encounter Care Teams Green Tire Inspector Relationship Specialty Start Date End Date Unknown, Notinfile PCP - General 06/10/21 06/10/21 documented as of this encounter
--- OUTSIDE RECORDS SUMMARY | 2024-09-12 15:49 | XMS_ITS | Encounter Summary ---
Author Organization [facility] Address [address] [place] [address] Care Team Providers Care Machine Assembler Supervisor Name Role Phone Ross Espinosa MD Primary Care Provider [phone] Encounter Details Date Type Department Care Team (Late st Contact Info) Description 05/15/2021 Orders Only [facility] Cardiology [address] [place] [id number] ProviderArgentina MD [address] [place] [address] Social History Tobacco Use Types Packs/Day Years Used Date Smoking Tobacco: Former Cigarettes Q uit: 08/22/2009 Smokeless Tobacco: Never Sex and Gender Information Value Date Recorded Sex Assigned at Not on file Legal Sex Male 1:43 PM CDT 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 Identity 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 Sexual Orientation Not on file documented as of this encounter Plan of Treatment Not on file documented as of this encounter Procedures Procedure Name Priority Date/Time Associated Diagnosis Comments CARDIOLOGY DOCUMENT SCAN Routine 05/15/2021 documented in this encounter Results * SCAN - CARDIOLOGY (05/15/2021) Anatomical Region Laterality Modality Other Historical Provider CV CARDIAC SERVICES [facility] Final Result documented in this encounter Visit Diagnoses Not on filedocumented in this encounter Care Teams Machine Assembler Supervisor Relationship Specialty Start Date End Date Ross Espinosa MD [address] [place] [address] PCP - General Internal Medicine 03/24/21 06/09/21 documented as of this encounter
--- OUTSIDE RECORDS SUMMARY | 2024-09-12 15:49 | XMS_ITS | Encounter Summary ---
Author Organization [facility] Medical Group Address [address] [address] Care Team Providers Care Caterers Helper Name Role Phone Ross Espinosa MD Primary Care Provider [phone] Reason for Referral * Diagnostic Imaging (Routine) - Closed Specialty Diagnoses / Procedures Referred By Contac t Referred To Contact Diagnoses Bilateral carotid artery stenosis Bilateral carotid bruits Procedures US Carotids Bilateral Josiah Lay MD [address] [address] Phone: tel: fax: External Order Referral ID Status Reason Start Date Expiration Date Visits Re quested Visits Authorized [id number] Closed 05/13/2021 06/12/2022 1 1 * Diagnostic Imaging (Routine) - Closed Specialty Diagnoses / Procedures Referred By Contac t Referred To Contact Diagnoses Claudication (HCC) PAD (peripheral artery disease) (HCC) Procedures US Arterial Doppler Lower Extremity Bilateral Josiah Lay MD [address] [address] Phone: tel: fax: External Order Referral ID Status Reason Start Date Expiration Date Visits Re quested Visits Authorized [id number] Closed 05/13/2021 06/12/2022 1 1 Reason for Visit * Reason Comments New Patient HTN, PVD * Consultation (Routine) - Closed Specialty Diagnoses / Procedures Referred By Contac t Referred To Contact Cardiology Diagnoses Hypertension, unspecified type Ross Espinosa MD [address] [place] [address] Phone: tel: fax: [facility] Cardiology [address] [place] [address] Phone: tel: fax: Referral ID Status Reason Start Date Expiration Date V isits Requested Visits Authorized [id number] Closed Specialty Services Required 03/24/2021 04/23/2022 1 1 Encounter Details Date Type Department Care Team (Late st Contact Info) Description 05/13/2021 10:45 AM CDT Office Visit [facility] Medical [facility] Cardiology [address] [place] [id number] Josiah Lay MD [address] [address] Claudication (CMS/HCC) ([facility]) (Primary Dx); PAD (peripheral artery disease) (CMS/HCC) ([facility]); MONTEZ (dyspnea on exertion); Essential hypertension; Bilateral carotid artery stenosis; Bilateral carotid bruits; Stage 3b chronic kidney disease (HCC); History of complete AV block; Pacemaker Social History Tobacco Use Types Packs/Day Years Used Date Smoking Tobacco: Former Cigarettes Q uit: 08/22/2009 Smokeless Tobacco: Never Sex and Gender Information Value Date Recorded Sex Assigned at Not on file Legal Sex Male 1:43 PM CDT Gender Identity Male 08/12/2022 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 Sexual Orientation Not on file documented as of this encounter Last Filed Vital Signs Vital Sign Reading Time Taken Comments Blood Pressure 120/72 05/13/2021 10:46 AM CDT Pulse 84 05/13/2021 10:46 AM CDT Temperature - - Respiratory Rate - - Oxygen Saturation 94% 05/13/2021 10:46 AM CDT Inhaled Oxygen Concentration - - Weight 91.6 kg (202 lb) 05/13/2021 10:46 AM CDT Height 175.3 cm (5' 9) 05/13/2021 10:46 AM CDT Body Mass Index 29.83 05/13/2021 10:46 AM CDT documented in this encounter Progress Notes * Josiah Lay MD - 05/13/2021 10:45 AM CDT [facility] CARDIOLOGY 05/13/2021 CHIEF COMPLAINT Chief Complaint Patient presents with ??? New Patient HTN, PVD HPI Freddy Hill is a 70 y.o. male with hypertension, history of AV block status post Medtronic pacemaker placement in June 2020, peripheral artery disease involving left lower extremity and carotid arteries, status post left lower extremity intervention; status post right carotid enterectomy; COPD, history of COVID-19 infection. 05/13/2021 initial evaluation-patient is here to reestablish cardiovascular care. Patient states that he moved to local area in October 2020 from [place], [place]. Patient has extensive cardiovascular history. His [...] placement. He denies any history of clinical NV, angina. At present, patient has dyspnea on [...] tobacco abuse, denies any current tobacco use. MEDICAL HISTORY he has a past medical history of Anemia, Arthritis, COPD (chronic obstructive pulmonary disease) ([facility]/HCC) (HCC), GERD (gastroesophageal reflux disease), and Hypertension. hypertension, history of AVblock status post Medtronic pacemaker placement in June 2020, peripheral artery disease involving left lower extremity and carotid arteries, status post left lower extremity intervention; status post right carotid enterectomy; COPD, history of COVID-19 infection. he has a past surgical history that includes Insert / replace / remove pacemaker and Hernia repair. he No Known Allergies Current Outpatient Medications Medication Sig Dispense Refill ??? albuterol 2.5 mg /3 mL (0.083 [...] every 6 (six) hours as needed No current facility-administered medications for this visit. he family history includes Asthma in his mother; Diabetes in his mother; Heart disease in his father; Hypertension in his father and mother. he reports that he quit smoking about 11 [...] hot flashes, polydipsia/polyuria Musculoskeletal ROS: Positive for left leg claudication Neurological ROS: negative for - gait disturbance, weakness Dermatological ROS: negative for pruritus, rash LABS AND OTHER DIAGNOSTIC TESTS REVIEWED No results found for: WBC, HGB, HCT, MCV, PLT No lab exists for component: LABALBU No results found for: WBC, HGB, HCT, MCV, PLT No results found for: CHOL No results found for: HDL No results found for: LDL] No results found for: TRIG Lipids-total cholesterol 122, HDL 50, triglycerides 51, LDL 60. 03/10/2021 Labs-hemoglobin 12.3, potassium 4.6, creatinine 1.91, GFR 35;. 03/24/2021 [facility] EKG-sinus rhythm, left bundle-branch block. 05/13/2021 PHYSICAL EXAM Vitals BP 120/72 (BP Location: Left arm, Patient Position: Sitting) Pulse 84 Ht 175.3 cm (5' 9) Wt 91.6 kg (202 lb) SpO2 94% BMI 29.83 kg/m?? General appearance - alert, no distress, [...] cyanosis Vascular-bilateral dorsalis pedis pulses are dopplerable; left posterior tibial pulse is diminished; right posterior tibial pulses non dopplerable ASSESSMENT Diagnoses and all orders for this visit: Claudication ([facility]) ([facility]) (Primary) - US Arterial Doppler Lower Extremity Bilateral; Future - US SULEMA; Future PAD (peripheral artery disease) ([facility]) ([facility]) - US Arterial Doppler Lower Extremity Bilateral; Future - US SULEMA; Future MONTEZ (dyspnea on exertion) - Transthoracic Echo Complete W Doppler/CF; Future Essential hypertension - Ambulatory referral to Cardiology - Transthoracic Echo Complete W Doppler/CF; Future Bilateral carotid artery stenosis - US Carotids Bilateral; Future Bilateral carotid bruits - US Carotids Bilateral; Future Stage 3b chronic kidney disease ([facility]) History of complete AV block - Transthoracic Echo Complete W Doppler/CF; Future Pacemaker PLAN/RECOMMENDATIONS 70 y.o. male with hypertension, history of AV block status post Medtronic pacemaker placement in June 2020, peripheral artery disease involving left lower extremity and carotid arteries, status post left lower extremity intervention; status post right carotid enterectomy; COPD, history of COVID-19 infection. -patient currently has dyspnea on exertion after walking less than 1 block, which is likely secondary to underlying lung condition. Patient advised to speak with his primary care physician about PFTs, given his history of tobacco use. -patient has peripheral artery disease, left lower extremity claudication, and history of endovascular/surgical intervention. Will do SULEMA/Doppler to check for any significant obstructive peripheral artery disease. Patient is on clopidogrel, also on low-dose apixaban which patient states was initiated while he was in [place]. Continue statin, current LDL is 60. -due to dyspnea on exertion, will proceed with echocardiogram with Doppler to check for any structural heart disease. -patient has history of carotid stenosis and right CEA. Will do carotid Dopplers. -blood pressure is well controlled. Patient is currently on multiple antihypertensives including amlodipine, carvedilol, lisinopril, HCTZ, clonidine. Continue current antihypertensives, monitor bloodpressure. Low-salt diet counseling was done. -patient will be scheduled with our pacemaker nurse for periodic pacemaker interrogations. -medical records from [place], [place] will be requested -Counseling was done for heart healthy diet, aerobic exercise at least 5 times a week, Medication compliance. -follow-up in 3 months or sooner if needed. Josiah Lay MD 05/13/21 Voice recognition software was used to complete this document, therefore, personal care assistant variances may occur. documented in this encounter Miscellaneous Notes * Addendum Note - Sury Rosales MA - 05/13/2021 10:45 AM CDTAddended by: SURY ROSALES on: 05/14/2021 10:33 AM Modules accepted: Orders documented in this encounter Plan of Treatment Scheduled Orders Name Type Priority Associated Diagnoses Orde r Schedule US Arterial Doppler Lower Extremity Bilateral Imaging Schedule Routine, Read Routine (OP Routine) Claudication (CMS/HCC) (HCC) PAD (peripheral artery disease) (CMS/HCC) (HCC) Expected: 05/13/2021, Expires: 05/13/2022 US Carotids Bilateral Imaging Schedule Routine, Read Routine (OP Routine) Bilateral carotid artery stenosis Bilateral carotid bruits Expected: 05/13/2021, Expires: 05/13/2022 documented as of this encounter Procedures Procedure Name Priority Date/Time Associated Diagnosis Comments ECG 12-LEAD Routine 05/13/2021 History of complete AV block LIPID PANEL Routine 03/10/2021 documented in this encounter Results * ECG 12 lead (05/13/2021) Josiah Lay MD ECG ORDERABLES Final Result * Lipid panel (03/10/2021) SCRIBED Cholesterol, Total 122 0 - 200 EXTERNAL LAB SCRIBED HDL 50 40 - 100 EXTERNAL LAB SCRIBED LDL 60 0 - 100 EXTERNAL LAB SCRIBED Triglycerides 51 0 - 150 EXTERNAL LAB Blood specimen (specimen) 03/10/2021 us Historical Provider LAB BLOOD ORDERABLES Tyra bowling Result EXTERNAL LAB documented in this encounter Visit Diagnoses Diagnosis Claudication (HCC)- Primary Unspecified peripheral vascular disease PAD (peripheral artery disease) (HCC) Unspecified peripheral vascular disease MONTEZ (dyspnea on exertion) Other dyspnea and respiratory abnormality Essential hypertension Unspecified essential hypertension Bilateral carotid artery stenosis Occlusion and stenosis of carotid artery without mention of cerebral infarction Bilateral carotid bruits Stage 3b chronic kidney disease (HCC) History of complete AV block Pacemaker Cardiac pacemaker in situ documented in this encounter Historical Medications * This list may reflect changes made after this encounter. gabapentin (NEURONTIN) 300 mg capsule Take 1 capsule (300 mg total) by mouth daily as needed dupilumab (DUPIXENT) syringe Inject 2 mL (300 mg total) under the skin every 14 (fourteen) days traMADoL (ULTRAM) 50 mg tablet Take 1 tablet (50 mg total) by mouth every 6 (six) hours as needed 04/08/2021 doxepin (SINEquan) 25 mg capsule Take 1 capsule (25 mg total) by mouth nightly as needed 03/10/2021 carvediloL (COREG) 25 mg tablet Take 1 tablet (25 mg total) by mouth 2 (two) times a day 04/09/2021 albuterol HFA (PROVENTIL HFA,VENTOLIN HFA,PROAIR HFA) 90 mcg/actuation inhaler INHALE 2 PUFFS EVERY 4 HOURS BY INHALATION ROUTE NEEDED FOR 30 DAYS. 04/06/2021 albuterol 2.5 mg /3 mL (0.083 %) nebulizer solution Take 3 mL (2.5 mg total) by nebulization as needed 05/05/2021 melatonin 5 mg capsule Take by mouth 4 multivitamin capsule Take 1 capsule by mouth daily 4 cetirizine 10 mg capsule Take by mouth 4 hydroCHLOROthiaz betsy (MICROZIDE) 12.5 mg capsule Take 12.5 mg by mouth daily 1 apixaban (ELIQUIS) 2.5 mg tablet Take 2.5 mg by mouth 2 (two) times a day 2 Spiriva Respimat 2.5 mcg/actuation inhaler INHALE 2 PUFFS BY MOUTH ONCE DAILY 04/21/2021 5 tamsulosin (FLOMAX) 0.4 mg extended release capsule TAKE 1 CAPSULE BY MOUTH EVERY DAY 30 MINUTES BEFORE THE SAME MEAL 03/06/2021 1 omeprazole (PriLOSEC) 20 mg capsule TAKE 1 CAPSULE BY MOUTH EVERY MORNING BEFORE BREAKFAST 03/06/2021 2 lisinopriL (PRINIVIL,ZESTRI L) 20 mg tablet Take 20 mg by mouth daily 02/24/2021 1 clopidogreL (PLAVIX) 75 mg tablet Take 1 tablet (75 mg total) by mouth daily 04/17/2021 3 cloNIDine (CATAPRES) 0.1 mg tablet TAKE 1 TABLET BY MOUTH TWICE A DAY FOR BLOOD PRESSURE 02/20/2021 1 atorvastatin (LIPITOR) 40 mg tablet Take 40 mg by mouth daily 04/14/2021 2 amLODIPine (NORVASC) 10 mg tablet Take 10 mg by mouth daily 03/20/2021 1 added in this encounter Orders Outpatient Referral Count Last Ordered Date Fir st Ordered Date AMB REFERRAL TO CARDIOLOGY 05/13/2021 documented in this encounter Care Teams Caterers Helper Relationship Specialty Start Date End Date Ross Espinosa MD [address] [place] [address] PCP - General Internal Medicine 03/24/21 06/09/21 documented as of this encounter
--- OUTSIDE RECORDS SUMMARY | 2024-09-12 15:49 | XMS_ITS | Encounter Summary ---
Author Organization [facility] Healthcare Address [address] [place] [address] Care Team Providers Care Radio Producer Name Role Phone Ross Espinosa MD Primary Care Provider [phone] [phone] Unknown, Notinfile Primary Care Provider Unavail able Encounter Details Date Type Department Care Team (Late st Contact Info) Description 06/06/2021 Orders Only [address] [address] Yamilet Faustin MD [address] [place] [id number] Social History Tobacco Use Types Packs/Day Years Used Date Smoking Tobacco: Former Cigarettes Q uit: 08/22/2009 Smokeless Tobacco: Never Sex and Gender Information Value Date Recorded Sex Assigned at Not on file Legal Sex Male 1:43 PM CDT Gender Identity Male 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
--- OUTSIDE RECORDS SUMMARY | 2024-09-12 15:49 | XMS_ITS | Encounter Summary ---
Author Organization [facility] Medical [facility] Address [address] [facility] [address] [place] [address] Care Team Providers Care Vice President Of Manufacturing Name Role Phone Ross Espinosa MD Primary Care Provider [phone] Encounter Details Date Type Department Care Team (Late st Contact Info) Description 03/24/2021 Orders Only [facility] Medical [facility] Cardiology [address] [facility] [address] [place] [phone] ProviderArgentina MD [address] [place] [address] Social History Tobacco Use Types Packs/Day Years Used Date Smoking Tobacco: Never Assessed Sex and Gender Information Value Date Recorded Sex Assigned at Not on file Legal Sex Male 1:43 PM CDT Gender Identity Male 08/12/2022 2: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 Sexual Orientation Not on file documented as of this encounter Plan of Treatment Not on file documented as of this encounter Procedures Procedure Name Priority Date/Time Associated Diagnosis Comments CARDIOLOGY DOCUMENT SCAN Routine 03/24/2021 documented in this encounter Results * SCAN - CARDIOLOGY (03/24/2021) Anatomical Region Laterality Modality Other Historical Provider [facility] Final Result documented in this encounter Visit Diagnoses Not on filedocumented in this encounter Care Teams Vice President Of Manufacturing Relationship Specialty Start Date End Date Ross Espinosa MD [address] [place] [address] PCP - General Internal Medicine 03/24/21 06/09/21 documented as of this encounter
--- OUTSIDE RECORDS SUMMARY | 2024-09-12 15:49 | XMS_ITS | Encounter Summary ---
Author Organization [facility] Address [address] [address] Care Team Providers Care Sander And Polisher Name Role Phone Ross Espinosa MD Primary Care Provider [phone] Reason for Referral * Cardiology (Routine) - Closed Specialty Diagnoses / Procedures [facility] Referred To Contact Diagnoses History of complete AV block Pacemaker Procedures DEVICE CHECK - REMOTE Josiah Lay MD [address] [address] Phone: tel: fax: [facility] Referral ID Status Reason Start Date Expiration Date Visits Re quested Visits Authorized [id number] Closed 06/04/2021 07/04/2022 1 1 * Cardiology (Routine) - Closed Specialty Diagnoses / Procedures [facility] Referred To Contact Diagnoses History of complete AV block Pacemaker Procedures DEVICE CHECK - REMOTE Josiah Lay MD [address] [address] Phone: tel: fax: [facility] Referral ID Status Reason Start Date Expiration Date Visits Re quested Visits Authorized [id number] Closed 06/04/2021 07/04/2022 1 1 * Cardiology (Routine) - Closed Specialty Diagnoses / Procedures Referred By Contac t Referred To Contact Diagnoses History of complete AV block Pacemaker Procedures DEVICE CHECK - REMOTE Josiah Lay MD [address] [address] Phone: tel: fax: [facility] Referral ID Status Reason Start Date Expiration Date Visits Re quested Visits Authorized [id number] Closed 06/04/2021 07/04/2022 1 1 * Cardiology (Routine) - Closed Specialty Diagnoses / Procedures Referred By Jovany t Referred To Contact Cardiology Diagnoses History of complete AV block Pacemaker Procedures DEVICE CHECK - IN OFFICE Josiah Lay MD [address] [address] Phone: tel: fax: [facility] Referral ID Status Reason Start Date Expiration Date Visits Re quested Visits Authorized [id number] Closed 06/04/2021 01/21/2024 1 1 * Cardiology (Routine) - Closed Specialty Diagnoses / Procedures Referred By Jovany t Referred To Contact Diagnoses History of complete AV block Pacemaker Procedures DEVICE CHECK - IN OFFICE Josiah Lay MD [address] [address] Phone: tel: fax: [facility] Referral ID Status Reason Start Date Expiration Date Visits Re quested Visits Authorized [id number] Closed 06/04/2021 07/04/2022 1 1 * Cardiology (Routine) - Closed Specialty Diagnoses / Procedures Referred By Jovany t Referred To Contact Diagnoses History of complete AV block Pacemaker Procedures DEVICE CHECK - IN OFFICE oJsiah Lay MD [address] [address] Phone: tel: fax: [facility] Referral ID Status Reason Start Date Expiration Date Visits Re quested Visits Authorized [id number] Closed 06/04/2021 07/04/2022 1 1 Encounter Details Date Type Department Care Team (Late st Contact Info) Description 06/04/2021 Orders Only [facility] Cardiology [address] [facility] [address] [place] [id number] Josiah Lay MD [address] [place] [address] [address] [place] [address] History of complete AV block (Primary Dx); Pacemaker Social History Tobacco Use Types Packs/Day Years Used Date Smoking Tobacco: Former Cigarettes Q uit: 08/22/2009 Smokeless Tobacco: Never Sex and Gender Information Value Date Recorded Sex Assigned at Not on file Legal Sex Male 1:43 PM CDT Gender Identity Male 08/12/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 Dx; Second Degree AVB, Symptomatic Bradycardia. DOI 05/02/2019-Dr Zenia Good ([place]). [facility] remote. Supervising MD: Dr Lay. Office DDD Pacemaker evaluation demonstrated appropriate device function. Battery function-2.95V, 4.4 years remaining battery life to HERMELINDO. Presenting rhythm-ASVP. Underlying [id number] with First Degree AV Block. CA interval 280 ms. AP-16%, ENGINEER ASSISTANT-99.7%. No mode switch episodes recorded. 2 Ventricular high rate episodes noted on 01/08/24, iegm suggestive of NSVT 5-11 beat durations @ 186 bpm. Medications; Plavix, Coreg. Ventricular amplitude decreased to 2.0V and PW increased to 1.0 ms. ?? See scanned report. ?? Office pacemaker f/u expected in 1 year. [facility] remote f/u 04/11/2024. Samia José RN Result [facility] Josiah Lay MD CV CARDIAC SERVICES PROCEDURES F inal Result * DEVICE CHECK - IN OFFICE (05/04/2023 1:22 PM CDT) Anatomical Region Laterality Modality Other Narrative 05/05/2023 3:12 PM CDT Medtronic [place] Dual Pacemaker. Dx; Second Degree AVB, Symptomatic Bradycardia. DOI 05/02/2019-Dr Zenia Good ([place]). [facility] remote. Office pacemaker evaluation demonstrated appropriate device function. Battery function-2.96V, 4.2 years remaining battery life to HERMELINDO. Presenting rhythm-ASVP. Underlying [id number] with First Degree AV Block. CA interval 240-280 ms. AP-16%, ENGINEER ASSISTANT-99.7%. No mode switch episodes recorded. 1 Ventricular high rate episode noted on 12/08/21, iegm suggestive of NSVT 8 beat duration @ 226 bpm. Medications; Xarelto, Plavix, Coreg. Atrial amplitude decreased to 1.5V. Ventricular amplitude decreased to 3.0V. See scanned report. ?? Office pacemaker f/u and ROV with Dr Lay scheduled 01/10/2023. [facility] remote f/u 08/03/2023. Samia José RN Result [facility] Josiah Lay MD CV CARDIAC SERVICES PROCEDURES F inal Result * DEVICE CHECK - REMOTE (05/27/2022 4:56 PM CDT) Anatomical Region Laterality Modality Other Narrative 07/07/2022 8:51 AM GAS DERRICK OPERATOR Medtronic [place] Dual Pacemaker. Dx; Second Degree AVB, Symptomatic Bradycardia. DOI 05/02/2019-Dr Zenia Good ([place]). [facility] remote. Routine Pacemaker remote. Normal device function. Battery function-2.98V, 7.0 years remaining battery life to HERMELINDO. Appropriate lead measurements. Presenting rhythm-ASVP. AP-19.7%, ENGINEER ASSISTANT-98.6%. No Atrial high rate episodes noted. No Ventricular high rate episodes noted. ?? Medications; Xarelto, Plavix, Coreg. See scanned report. Office pacemaker f/u 09/13/2022. Result [facility] Josiah Lay MD CV CARDIAC SERVICES PROCEDURES F inal Result * DEVICE CHECK - REMOTE (02/17/2022 11:03 AM CDT) Anatomical Region Laterality Modality Other Narrative 03/10/2022 9:31 AM CDT Medtronic [place] Dual Pacemaker. Dx; Second Degree AVB, Symptomatic Bradycardia. DOI 05/02/2019-Dr Zenia Good ([place]). [facility] remote. ?? Routine Pacemaker remote. Normal device function. ?? Battery function-2,99V, 7.7 years remaining battery life to HERMELINDO. Appropriate lead measurements. ?? Presenting rhythm-ASVP. AP-7%, ENGINEER ASSISTANT-100%. ?? No Atrial high rate episodes noted. 1 Ventricular high rate episode noted on 12/08/2021, iegm NSVT, 8 beat duration, 226 bpm. ?? Medications; Xarelto, Plavix, Coreg. See scanned report. ?? Office pacemaker f/u 09/13/2022. [facility] remote f/u 05/19/2022. Result [facility] Josiah Lay MD CV CARDIAC SERVICES PROCEDURES F inal Result * DEVICE CHECK - REMOTE (11/20/2021 10:32 AM CDT) Anatomical Region Laterality Modality Other Narrative 01/11/2022 10:46 AM CDT Medtronic Eugenie Dual Pacemaker. Dx; Second Degree AVB, Symptomatic Bradycardia. DOI 05/02/2019-Dr Zenia Good ([place]). [facility] remote. Routine Pacemaker remote. Normal device function. Battery function-2,99V, 6.9 years remaining battery life to HERMELINDO. Appropriate lead measurements. Presenting rhythm- AP-8%, ENGINEER ASSISTANT-100%. No Atrial high rate episodes noted. No Ventricular high rate episodes noted. Medications; Xarelto, Plavix, Coreg. See scanned report. Office pacemaker f/u 09/13/2022. [facility] remote f/u 02/17/2022. Josiah Lay MD CV CARDIAC SERVICES PROCEDURES F inal Result * DEVICE CHECK - IN OFFICE (08/12/2021 8:27 AM GAS DERRICK OPERATOR) Anatomical Region Laterality Modality Other Narrative 08/24/2021 7:56 AM GAS DERRICK OPERATOR Medtronic [place] Dual Pacemaker. Dx; Second Degree AVB, Symptomatic Bradycardia. DOI 05/02/2019-Dr Zenia Good ([place]). [facility] remote. Office pacemaker evaluation demonstrated appropriate device function. Battery function-2.98V, 6.2 years remaining battery life to HERMELINDO. Presenting rhythm-ASVP. Underlying rhythm-SR with First Degree AV Block. CA interval 240 ms. AP-2.5%, ENGINEER ASSISTANT-99%. 15 mode switch episodes recorded, iegm's Afib/Aflutter, longest episode 30 min to 1 hour. No Ventricular high rate episodes noted. Medications; Eliquis, Plavix. Atrial amplitude decreased to 1.5V. Ventricular amplitude decreased to 2.0V and PW increased to 1.0 ms. See scanned report. ?? [facility] remote f/u 11/11/2021. 08/12/2021-[facility] remote transfer requested through web site. Result [facility] Josiah Lay MD CV CARDIAC SERVICES PROCEDURES F inal Result documented in this encounter Visit Diagnoses Diagnosis History of complete AV block- Primary Pacemaker Cardiac pacemaker in situ History of complete AV block Pacemaker Cardiac pacemaker in situ Cardiac pacemaker in situ History of complete AV block Pacemaker Cardiac pacemaker in situ Cardiac pacemaker in situ History of complete AV block Pacemaker Cardiac pacemaker in situ History of complete AV block Pacemaker Cardiac pacemaker in situ History of complete AV block Pacemaker Cardiac pacemaker in situ History of complete AV block Pacemaker Cardiac pacemaker in situ documented in this encounter Care Teams Sander And Polisher Relationship Specialty Start Date End Date Ross Espinosa MD [address] [place] [address] PCP - General Internal Medicine 03/24/21 06/09/21 documented as of this encounter
--- OUTSIDE RECORDS SUMMARY | 2024-09-12 15:49 | XMS_ITS | Encounter Summary ---
Author Organization [facility] Address [address] [facility] [address] [place] [address] Care Team Providers Care Education Consultant Name Role Phone Ross Espinosa MD Primary Care Provider [phone] Encounter Details Date Type Department Care Team (Late st Contact Info) Description 05/13/2021 Orders Only [facility] Cardiology [address] [facility] [address] [place] [id number] ProviderArgentina MD [address] [place], [place] [id number] Social History Tobacco Use Types Packs/Day Years Used Date Smoking Tobacco: Former Cigarettes Q uit: 08/22/2009 Smokeless Tobacco: Never Sex and Gender Information Value Date Recorded Sex Assigned at Not on file Legal Sex Male 1:43 PM CDT Gender Identity Male 08/12/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 Sexual Orientation Not on file documented as of this encounter Plan of Treatment Not on file documented as of this encounter Procedures Procedure Name Priority Date/Time Associated Diagnosis Comments CARDIOLOGY DOCUMENT SCAN Routine 05/13/2021 CARDIOLOGY DOCUMENT SCAN Routine 05/13/2021 CARDIOLOGY DOCUMENT SCAN Routine 05/13/2021 documented in this encounter Results * SCAN - CARDIOLOGY (05/13/2021) Anatomical Region Laterality Modality Other Historical Provider CV CARDIAC SERVICES PROCE DURES Final Result * SCAN - CARDIOLOGY (05/13/2021) Anatomical Region Laterality Modality Other Historical Provider CV CARDIAC SERVICES PROCE DURES Final Result * SCAN - CARDIOLOGY (05/13/2021) Anatomical Region Laterality Modality Other us Historical Provider CV CARDIAC SERVICES PROCE OLESYA Final Result documented in this encounter Visit Diagnoses Not on filedocumented in this encounter Care Teams Education Consultant Relationship Specialty Start Date End Date Ross Espinosa MD [address] [place] [address] PCP - General Internal Medicine 03/24/21 06/09/21 documented as of this encounter
== END 2024-09-11 15:30 | disposition home health service (06) | DRG 194 ==
LOC: ANHED 16:42 → ANH3MED 09-05 07:46
PROVIDERS: General Practice; Physician Assistant; Admitting Provider Hospitalist; Emergency Provider Emergency Medicine; PCP Nurse Practitioner; Visit Provider Internal Medicine
DX: J18.9 Pneumonia, unspecified organism (principal); I13.0 Hypertensive heart and chronic kidney disease with heart failure and stage 1 through stage 4 chronic kidney disease, or unspecified chronic kidney disease; J44.0 Chronic obstructive pulmonary disease with (acute) lower respiratory infection; J47.1 Bronchiectasis with (acute) exacerbation; J47.0 Bronchiectasis with acute lower respiratory infection; J96.11 Chronic respiratory failure with hypoxia; I50.32 Chronic diastolic (congestive) heart failure; N18.4 Chronic kidney disease, stage 4 (severe); J43.9 Emphysema, unspecified; I25.82 Chronic total occlusion of coronary artery; I25.10 Atherosclerotic heart disease of native coronary artery without angina pectoris; I70.202 Unspecified atherosclerosis of native arteries of extremities, left leg; D64.9 Anemia, unspecified; E78.5 Hyperlipidemia, unspecified; L40.9 Psoriasis, unspecified; N35.919 Unspecified urethral stricture, male, unspecified site; N40.0 Benign prostatic hyperplasia without lower urinary tract symptoms; K21.9 Gastro-esophageal reflux disease without esophagitis; M19.90 Unspecified osteoarthritis, unspecified site; R42 Dizziness and giddiness; G47.33 Obstructive sleep apnea (adult) (pediatric); Z20.822 Contact with and (suspected) exposure to COVID-19; Z96.643 Presence of artificial hip joint, bilateral; Z79.02 Long term (current) use of antithrombotics/antiplatelets; Z95.0 Presence of cardiac pacemaker; Z95.820 Peripheral vascular angioplasty status with implants and grafts; Z87.891 Personal history of nicotine dependence; Z99.81 Dependence on supplemental oxygen
CPT/HCPCS: 36415; 36569; 36600; 71046; 80048; 80053; 82607; 82728; 82746; 82805; 83010; 83540; 83550; 83605; 83615; 83735; 83880; 84466; 84484; 85018; 85025; 85027; 85046; 85610; 85730; 86140; 86738; 87015; 87040; 87070; 87116; 87186; 87205; 87206; 87449; 87633; 87637; 87641; 87899; 93005; 94640; 94667; 96365; 96367; 96375; 99285; A9270; C1751; C8929; G0378; J0456; J1650; J1956; J2003; J2185; J2919; Q9957

== ENCOUNTER 2024-09-17 14:24 | Outpatient (NON) | payer MEDICARE, SELFPAY ==
--- OUTSIDE RECORDS SUMMARY | 2024-09-17 15:23 | XMS_ITS | Clinical Summary ---
Author Organization [facility] Address [address] [place] [address]. [place], [place] [id number] [place] [address] Care Team Providers Care Platen Drier Operator Name Role Phone Dagmarjuan Ranulfo FRANCISCO Primary Care Provider [phone] Josiah Lay MD Unavailable Daniela Hilario [facility]- Unavailable + [phone] Allergies No known active allergies Medications Multiple [...] on file Legal Sex Male 3:43 PM COMMERCIAL SALES CONSULTANT Gender Identity Male 10/27/2021 1:50 PM COMMERCIAL SALES CONSULTANT Sexual Orientation Straight 10/27/2021 1: 50 PM COMMERCIAL SALES CONSULTANT Last Filed Vital Signs Vital Sign Reading [...] 10:33 AM CDT Height 172.7 cm (5' 8 ) 05/10/2022 10:3 3 AM CDT Body Mass [...] patient's age to complete this topic Insurance [id number] Advance Directives Documents on File Type Date Recorded Patient Layer Off Expl anation Power of Soil Sort Worker 11/10/2021 POA for [facility] Care Care Teams Platen Drier Operator Relationship Specialty Start Date End Date Ranulfo Romo DO [address] [facility] [address] [place] [address] PCP - General FAMILY PRACTICE 03/30/22 Josiah Lay MD [address] [place] [address] CARDIOVASCULAR DISEASE 03/30/22 Daniela Hilario, [facility] 4 [facility] [address] [place] [id number] Nurse Practitioner Family 03/30/22
--- OUTSIDE RECORDS SUMMARY | 2024-09-17 15:23 | XMS_ITS | Clinical Summary ---
Author Organization [facility] Address [address] [place] [address] Phone Care Team Providers Care School Psychology Specialist Name Role Phone Ranulfo Romo Primary Care Provider [phone] Allergies Active Allergy Reactions Criticality Noted Date [...] 11:45 AM CDT Height 172.7 cm (5' 8 ) 05/13/2022 11:45 AM CDT Body Mass Index 29.35 05/13/2022 11:45 AM CDT Plan of Treatment Health Maintenance Due Date Last Done Comments Pneumococcal PPSV23/PCV13 65 + Years / High and Highest Risk (1 of 4 - PCV) 1956 COVID-19 Vaccine (4 - 2022- season) 2024 08/12/2021, 11/26/2020, 10/22/2020 Influenza Vaccine (#1) 2024 04/24/2021 Care Teams School Psychology Specialist Relationship Specialty Start Date End Date Ranulfo Romo DO PCP - General Family Medicine 12/30/21
--- OUTSIDE RECORDS SUMMARY | 2024-09-17 15:23 | XMS_ITS | Encounter Summary ---
Author Organization [facility] Address [address] [place] [address]. [place], [place] [id number] [place] [address] Care Team Providers Care Button Pusher Name Role Phone Ranulfo Romo DO Primary Care Provider [phone] Josiah Lay MD Unavailable Daniela Hilario [facility] Unavailable + [phone] Encounter Details Date Type Department Care Team (Late st Contact Info) Description 04/05/2022 [email or web address] [facility] Patient Accounts [address] [place] [address] [facility] Provider Auto Pay Payment Plan Social History Tobacco Use Types Packs/Day Years Used Date Smoking Tobacco: Former Cigarettes 2 40 1 0 - 2009 Smokeless Tobacco: Never Alcohol Use Standard Drinks/Week Comments Not Currently 0 (1 standard drink = 0.6 oz pur e alcohol) Sex and Gender Information Value Date Recorded Sex Assigned at Not on file Legal Sex Male 3:43 PM BARGE WORKER Gender Identity Male 10/27/2021 1:50 PM BARGE WORKER Sexual Orientation Straight 10/27/2021 1: 50 PM BARGE WORKER documented as of this encounter Plan of Treatment Not on file documented as of this encounter Visit Diagnoses Not on filedocumented in this encounter Care Teams Button Pusher Relationship Specialty Start Date End Date Ranulfo Romo DO [address] [facility] [address] [place] [address] [place] [address] PCP - General FAMILY PRACTICE 03/30/22 Josiah Lay MD [address] [place] [address] CARDIOVASCULAR DISEASE 03/30/22 Daniela Hilario, [facility]- [address] [facility] [address] [place] [address] Nurse Practitioner Family 03/30/22 documented as of this encounter
--- OUTSIDE RECORDS SUMMARY | 2024-09-17 15:24 | XMS_ITS | Encounter Summary ---
Author Organization [facility] Care Team Providers Care Railway Traction Line Worker Name Role Phone Ross Espinosa MD Primary Care Provider [phone] Encounter Details Date Type Department Care Team (Late st Contact Info) Description 06/06/2021 3:37 PM CDT Hospital Encounter Yamilet Faustin MD [address] [place] [address] Social History Tobacco Use Types Packs/Day Years [...] Gender Identity Male 08/12/2022 2:14 PM SENIOR PLANNING MANAGER Sexual Orientation Not on file documented as of this encounter Plan of Treatment Not on file documented as of this encounter Visit Diagnoses Not on filedocumented in this encounter Care Teams Railway Traction Line Worker Relationship Specialty Start Date End Date Ross Espinosa MD [address] [place] [address] PCP - General Internal Medicine 03/24/21 06/09/21 documented as of this encounter
--- OUTSIDE RECORDS SUMMARY | 2024-09-17 15:24 | XMS_ITS | Referral Summary ---
Author Organization [facility] [address] Address [address] [place] [address] Care Team Providers Care Coutierier Name Role Phone Daniela Hilario MOTOR COACH DRIVER Unavailable [phone] Ranulfo Romo DO Primary Care Provider Encounters Date Type Department Care Team Description 09/04/2024 12:31 PM GUEST RELATION OFFICER - 09/04/2024 11:59 PM GUEST RELATION OFFICER Hospital Encounter [facility] Emergency, Room R Discharge Disposition: Discharge to home or self care 09/04/2024 Hospital Encounter [facility] Operating Room 1 [place] [address] Minerva Childress MD 07/18/2024 8:00 AM GUEST RELATION OFFICER Ancillary Procedure [facility] Medical Group Cardiology [address] [place] [address] [place] [id number] Symptomatic bradycardia (Primary Dx); History of complete AV block; Cardiac pacemaker in situ from Last 3 Months Allergies Active Allergy Reactions Criticality Noted Date Comments Cat Dander Itching,Other (See comments) Low 01/26/2024 Sneezing, watery eyes. Dog Dander Agitation,Chest tightness,Eye irritation,Rash,Shortnes s of breath,Wheezing High 03/11/2022 House Dust Agitation,Chest tightness,Dizziness,Eye irritation,Headache,Itch ing,Mental status changes,Rash,Shortness of breath High 03/11/2022 Mold Shortness of breath High 01/26/2024 Perfume Shortness of breath High 01/26/2024 Medications albuterol 2.5 mg /3 mL (0.083 %) nebulizer solution Take 3 mL (2.5 mg total) by nebulization as needed 1 Active albuterol HFA (PROVENTIL HFA,VENTOLIN HFA,PROAIR HFA) 90 mcg/actuation inhaler INHALE 2 PUFFS EVERY 4 HOURS BY INHALATION ROUTE NEEDED FOR 30 DAYS. 1 Active carvediloL (COREG) 25 mg tablet Take 1 tablet (25 mg total) by mouth 2 (two) times a day 1 Active doxepin (SINEquan) 25 mg capsule Take 1 capsule (25 mg total) by mouth nightly as needed 1 Active traMADoL (ULTRAM) 50 mg tablet Take 1 tablet (50 mg total) by mouth every 6 (six) hours as needed 1 Active dupilumab (DUPIXENT) syringe Inject 2 mL (300 mg total) under the skin every 14 (fourteen) days Active gabapentin (NEURONTIN) 300 mg capsule Take 1 capsule (300 mg total) by mouth daily as needed Active acetaminophen 500 mg capsule Take 2 capsules (1,000 mg total) by mouth every 6 (six) hours 30 tablet 1 Active Additional Information Patient taking differently:1,000 mg oralEvery 6 hours PRN, Informant: Self, Reported on 08/24/2024 tamsulosin (FLOMAX) 0.4 mg extended release capsule Take 2 capsules (0.8 mg total) by mouth daily with dinner 1 Active oxygenIndicati ons:Dyspnea Administer 2 L/min into each nostril as needed (hypoxia) 1 Active furosemide (LASIX) 40 mg tabletIndicati ons:per md advisement Take 1 tablet (40 mg total) by mouth daily Active potassium chloride ER (KLOR-CON) 10 mEq CR tabletIndicati ons:hypokalemi a Take 1 tablet/capsule (10 mEq total) by mouth daily Active finasteride (PROSCAR) 5 mg tablet Take 1 tablet (5 mg total) by mouth 2 (two) times a day 2 Active triamcinolone (KENALOG) 0.1 % ointment Apply 1 Application topically as needed Active guaiFENesin ER (MUCINEX) 600 mg 12 hr tablet Take 2 tablets (1,200 mg total) by mouth 2 (two) times a day Active clopidogreL (PLAVIX) 75 mg tablet TAKE 1 TABLET BY MOUTH DAILY 100 tablet [address] (PROTONIX) 40 mg EC tablet TAKE 1 TABLET BY MOUTH DAILY 100 tablet 2 4 Active atorvastatin (LIPITOR) 80 mg tablet Take 1 tablet (80 mg total) by mouth nightly 90 tablet 3 4 Active cilostazoL (PLETAL) 50 mg tablet TAKE 1 TABLET BY MOUTH TWICE DAILY 200 tablet 3 4 Active amLODIPine (NORVASC) 10 mg tablet Take 1 tablet (10 mg total) by mouth nightly 90 tablet 3 4 Active Stiolto Respimat 2.5-2.5 mcg/actuation inhaler Inhale 2 puffs daily 4 Active Spiriva Respimat 2.5 mcg/actuation inhaler INHALE 2 PUFFS BY MOUTH ONCE DAILY 1 025 Discontin ued(Alter aniket therapy) cefdinir (OMNICEF) 300 mg capsule Take 1 capsule (300 mg total) by mouth 2 (two) times a day 4 025 Discontin ued(Thera py completed ) fluticasone propion-salmet Roney (ADVAIR DISKUS) 500-50 mcg/dose diskus inhaler Inhale 1 puff 2 (two) times a day Rinse mouth with water after use. Do not swallow. 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 Patient still making adequate urine. -renally dose medications -continue to monitor renal function -trending down -plan to replace kumari and send home with it -F/U with urology Anemia 06/15/2021 Assessment & Plan (06/15/2021 8:24 AM CDT): - monitor - possibly R/T empyema PVD (peripheral vascular disease) 06/11/2021 Assessment & Plan (06/11/2021 8:05 AM CDT): S/p peripheral artery angioplasty with stent placement x3. Takes Plavix at home. According to OSH records, last dose was 06/03. - hold Plavix COPD (chronic obstructive pulmonary disease) Assessment & Plan (06/11/2021 8:00 AM CDT): Wears 2L O2 overnight, has ANDRZEJ - continue home inhaler CKD (chronic kidney disease) stage 4, GFR 15-29 ml/min ([facility]) 06/11/2021 Assessment & Plan (06/19/2021 8:25 AM CDT): At time of admission creat baseline 2.5 - renal following - Avoid other nephrotoxic medications - Monitor labs Empyema ([facility]) 06/10/2021 Assessment & Plan (07/10/2021 8:59 PM GUEST RELATION OFFICER): - Currently receiving Ceftriaxone 2 g IV every 24 hours, Metronidazole 500 mg PO every 8 hours, and Doxycycline 100 mg every 12 hours. Duration x [...] ID clinic with any questions or concerns Assessment & Plan (06/19/2021 2:52 PM CDT): The patient is a 70 y.o. male with PMH of COPD, ANDRZEJ, asthma, CKD, HTN, AICD, carotid stenosis s/p R CEA, PAD s/p angioplasty with stent placement LLE [...] be associated with pancreatitis, pseudotumor cerebri, elevated LFTs, esophageal ulceration, black tongue syndrome (reversible fungus infection [...] to avoid alcohol while taking the medication. Assessment & Plan (06/22/2021 12:19 PM CDT): Empyema without systemic manifestations WBC: 13.5, afebrile. OSH CT shows small to moderate loculated pleural effusion. - s/p L thoracotomy and decortication on 06/12 - he has progressed well and will be going home in AM - IV antibiotics Cardiac pacemaker in situ 06/03/2021 Overview (06/03/2021): Medtronic Eugenie Dual Pacemaker. Dx; Second Degree AVB, Symptomatic Bradycardia. DOI 05/02/2019-Dr Zenia Good ([place]). Carelink remote. Assessment & Plan (06/11/2021 8:06 AM CDT): 2/2 symptomatic bradycardia, second degree AV block - on Eliquis (last dose 06/06), unknown why? - hold AC Hypertension Assessment & Plan (06/22/2021 12:21 PM CDT): Has been normotensive while inpatient - increase BB - Lisinopril and HCTZ on hold Resolved Problems Problem Noted Date Diagnosed Date Resolved Date CKD (chronic kidney disease) stage 3, GFR 30-59 ml/min 06/11/2021 06/11/2021 Hyperkalemia 06/11/2021 06/19/2021 Assessment & Plan (06/18/2021 10:34 AM CDT): - Lisinopril on hold - monitor on tele Immunizations Name Administration Dates Next Due Influenza, Quad, Adjuvantated, Intramuscular 10/2020 Social History Tobacco Use Types Packs/Day Years [...] CDT Gender Identity Male 08/12/2022 2:14 PM GUEST RELATION OFFICER Sexual Orientation Not on file Last Filed Vital Signs Vital Sign Reading Time Taken Comments Blood Pressure 126/62 04/25/2024 12:57 PM CDT Pulse 85 04/25/2024 12:57 PM CDT Temperature 36.6 ??C (97.8 ??F) 01/27/2024 8 :49 AM CDT Respiratory Rate 24 01/27/2024 8:49 AM CDT Oxygen Saturation 91% 04/25/2024 12: 57 PM CDT w/portable o2 Inhaled Oxygen Concentration - - Weight 83.8 kg (184 lb 11.2 oz) 04/25/2024 12:57 PM CDT Height 172.7 cm (5' 8 ) 04/25/2024 12:5 7 PM CDT Body Mass Index 28.08 04/25/2024 12:57 PM CDT Plan of Treatment Not on file Medical Devices Implanted Type Area Billing Representative Device Identifier Shelf Expiration Date Model / Serial / Lot Pacemaker Pacemaker Chest Procedures Procedure Name Priority Date/Time Associated Diagnosis Comments DEVICE CHECK - REMOTE Routine 07/18/2024 12:06 PM GUEST RELATION OFFICER History of complete AV block from Last 3 Months Results * DEVICE CHECK - REMOTE (07/18/2024 12:06 PM GUEST RELATION OFFICER) Anatomical Region Laterality Modality Other Narrative 09/12/2024 8:48 AM GUEST RELATION OFFICER Medtronic Eugenie Dual Pacemaker. Dx; Second Degree AVB, Symptomatic Bradycardia. DOI 05/02/2019-Dr Zenia Good ([place]). Carelink remote. Routine DDDR Pacemaker Remote. Transmission attached. Battery status: ??2.94 V, 3.3 years remaining battery life to HERMELINDO. Stable lead impedances, pacing and sensing thresholds. Presenting rhythm: ??A sensed/V paced AP-14.7%, CAN CARRIER-99.9% No AT/AF episodes noted. No Ventricular high rate episodes detected. Medications: ??Plavix 75 mg, carvedilol 25 mg, amlodipine 10 mg See scanned report. Office pacemaker follow up: ??6 months [facility]Link remote f/u 10/24/24. Kobe Soto RN Josiah Lay MD CV CARDIAC SERVICES PROCEDURES F inal Result from Last 3 Months Insurance MEDICARE SOLUTIONS MEDICARE SOLUTIONS [facility] CHOICE PLUS MEDICARE MEDICARE SOLUTIONS Advance Directives For more information, please contact: [phone] * Full Code (Latest Code Status on File) Date Activated Date Inactivated Comments 06/12/2021 8:06 PM 06/23/2021 5:12 PM * Full Code Date Activated Date Inactivated Comments 06/10/2021 9:01 PM 06/12/2021 8:06 PM Care Teams Coutierier Relationship Specialty Start Date End Date Ranulfo Romo DO PCP - General Family Medicine 04/08/22 Daniela Hilario NP Nurse Practitioner Nurse Practitioner 03/26/22
--- OUTSIDE RECORDS SUMMARY | 2024-09-17 15:24 | XMS_ITS | Encounter Summary ---
Author Organization [facility] Healthcare Address [address] [place] [address] Care Team Providers Care Self Sealing Fuel Tank Repairer Name Role Phone Daniela Hilario VALUATION CONSULTANT Unavailable [phone] Ranulfo Romo DO Primary Care Provider Reason for Visit * Auth/Cert (Routine) Specialty Diagnoses / Procedures Referred By Jovany carver Referred To Contact Diagnoses Stricture of bulbous urethra in male, unspecified stricture type Stricture of bulbous urethra in male, unspecified stricture type [N35.912] Procedures [place] NJX RETROGRADE URETHROCSTOGRAPY [place] CYSTOURETHROSCOPY W/INTERNAL URETHROTOMY [place] CYSTO W/DILAT RX BALO CATH URTL STRIX/STEN MALE [place] DILAT URETHRAL STRIX DILATOR MALE 1ST [place] INSJ NON-NDWELLG BLADDER CATHETER CYSTOSCOPY URETHRAL DILATION; CYSTOSCOPY, DILATION OF URETHRAL STRICTURE, DIRECT VISION INTERNAL URETHROTOMY,RETROGRADE URETHROGRAM, OPTILUME 24F & 30F 5CM BALLOON DILATION WITH CASPER CATHETER PLACEMENT CYSTOSCOPY URETHROGRAM URETHROTOMY - DIRECT VISION Referral ID Status Reason Start Date Expiration Date Visits Re quested Visits Authorized [id number] 1 1 Encounter Details Date Type Department Care Team (Late st Contact Info) Description 09/04/2024 Hospital Encounter [facility] Operating Room 1 [place] [address] [place] [address] [place] [address] Social History Tobacco Use Types Packs/Day Years [...] CDT Gender Identity Male 08/12/2022 2:14 PM FBI PROFILER Sexual Orientation Not on file documented as of this encounter Nursing Notes * Katlyn Hanks RN - 08/24/2024 8:33 AM CST Sleep apnea discharge instructions reviewed with patient and placed on chart PROFILER documented in this encounter Miscellaneous Notes * Perioperative Nursing Note - Katlyn Hanks RN - 08/24/2024 11:36 AM CST Spoke again with Akila at Dr Childress's office, she instructed me that Dr Childress wants patient to hold Plavix and Pletal for chandrika days prior to surgery. Patient informed and verbalized understanding PROFILER * Perioperative Nursing Note - Katlyn Hanks RN - 08/24/2024 10:59 AM CST Spoke with Akila from Dr Childress's office regarding holding plavix and pletal. She states 7 days for plavix and she will contact Dr Childress regarding pletal and let patient know. PROFILER * Perioperative Nursing Note - Katlyn Hanks RN - 08/24/2024 8:58 AM CST Pre operative instructions reviewed with patient , he verbalized understanding. Patient states he will reach out to his geoint analyst to confirm hold time for plavix and Pletal. I will reach out to María's office for confirmation. PROFILER * Pre-Procedure Instructions - Katlyn Hanks RN - 08/24/2024 8:48 AM CST [phone] We are pleased that you and your doctor have chosen [facility] for your surgery. We hope that [...] Take as prescribed Use no make-up, nail wolof, lotions, oils or powders on your skin. [...] down the duran until you see the [employer]/coffee shop, there will be elevators to the [...] posted at the top of the page. PROFILER PROFILER documented in this encounter Plan of Treatment [...] 06/07/2024 added in this encounter Care Teams Self Sealing Fuel Tank Repairer Relationship Specialty Start Date End Date Ranulfo Romo DO PCP - General Family Medicine 04/08/22 Daniela Hilario NP Nurse Practitioner Nurse Practitioner 03/26/22 documented as of this encounter
--- OUTSIDE RECORDS SUMMARY | 2024-09-17 15:24 | XMS_ITS | Clinical Summary ---
Author Organization [facility] [address] Address [address] [place] [address] Care Team Providers Care Wheel Setter Name Role Phone Daniela Hilario CORRESPONDENCE CLERK Unavailable [phone] Ranulfo Romo DO Primary Care Provider [phone] Allergies Active Allergy Reactions Criticality Noted Date [...] urethra in male 08/13/2024 Angina pectoris, unstable (CMS/[facility]) 01/11/2024 Abnormal stress test 01/11/2024 Pain in both lower extremities 12/30/2021 Overview (12/30/2021): Added automatically from request for surgery [id number] ALFREDO (acute kidney injury) 06/16/2021 Assessment & [...] kidney disease) stage 4, GFR 15-29 ml/min ([facility]) 06/11/2021 Assessment & Plan (06/19/2021 8:25 AM CDT): At time of admission creat baseline 2.5 - renal following - Avoid other nephrotoxic medications - Monitor labs Empyema ([facility]) 06/10/2021 Assessment & Plan (07/10/2021 8:59 PM MANAGEMENT RECRUITER): - Currently receiving Ceftriaxone 2 g IV [...] AVB, Symptomatic Bradycardia. DOI 05/02/2019-Dr Zenia Good ([place]). Carelink remote. Assessment & Plan (06/11/2021 8:06 [...] Lisinopril on hold - monitor on tele Encounters Date Type Department Care Team Description 09/04/2024 12:31 PM MANAGEMENT RECRUITER - 09/04/2024 11:59 PM MANAGEMENT RECRUITER Hospital Encounter [facility] Emergency, Room R Discharge Disposition: Discharge to home or self care 09/04/2024 Hospital Encounter [facility] Operating Room 1 [place] [address] Minerva Childress MD 07/18/2024 8:00 AM MANAGEMENT RECRUITER Ancillary Procedure [facility] Medical Group Cardiology [address] [facility] [address] [place] [address] Symptomatic bradycardia (Primary Dx); History of complete AV block; Cardiac pacemaker in situ from Last 3 Months Immunizations Name Administration Dates Next Due Influenza, Quad, Adjuvantated, Intramuscular 10/2020 Surgical History Surgery Date Site/Laterality Comments INSERT / REPLACE / REMOVE PACEMAKER 06/22/2020 - 07/21/2020 Medtronic dula lead PM HIP ARTHROPLASTY Bilateral left 2009, right 2002 CAROTID ENARTERECTOMYY 08/22/2013 - 08/21/2014 Right TONSILLECTOMY OTHER SURGICAL HISTORY 2020 surgical and endovascular intervention LLE-3 stents COLONOSCOPY HERNIA REPAIR 08/22/2015 - 08/21/2016 ventral CENTRAL LINE PLACEMENT > 5 YEARS 06/19/2021 N/A CYSTOSCOPY Medical History Medical History Date Comments Anemia Arthritis COPD (chronic obstructive pulmonary disease) (HC C) GERD (gastroesophageal reflux disease) Hypertension Covid-19 05/2020 hospitalization 3 days Empyema (CMS/HCC) ([facility]) 05/2020 AV block Jun 2020 PM inse rtion Claudication ([facility]) PAD (peripheral artery disease) ([facility]) stents in left leg CKD (chronic kidney disease) stage 3, GFR 30-59 ml/min ([facility]) Sleep apnea Asthma Carotid stenosis s/p right CEA Hyperkalemia Pneumonia 2018 Fatigue Vision changes Cramps of lower extremity Easy bruisability Irregular heart beat Wheezing SOB (shortness of breath) Cough MONTEZ (dyspnea on exertion) Lung disease Family History Medical History Relation Name Comments Heart disease Father Hypertension Father Asthma Mother Diabetes Mother Hypertension Mother Relation Name Status Comments Father Mother Social History Tobacco Use Types Packs/Day Years [...] CDT Gender Identity Male 08/12/2022 2:14 PM MANAGEMENT RECRUITER Sexual Orientation Not on file Obstetrics History Last Filed Vital Signs Vital Sign Reading [...] 04/25/2024 12:57 PM CDT Plan of Treatment Health Maintenance Due Date Last Done Comments Colon Cancer Screening-Colonoscopy 1950 Depression Screening 1950 Hepatitis C Screening 1950 DTaP/Tdap/Td Vaccine (1 - Tdap) 1962 Hepatitis B Screening 1969 Zoster Vaccine (1 of 2) 2001 Pneumococcal vaccine 65+ (2 of 2 - PPSV23 or PCV20) 06/17/2012 04/22/2012 Abdominal Aortic Aneurysm (A AA) Screen 2016 Well Visit 65+ 2016 Covid-19 Vaccine (5 - 2023-2 5 season) 2024 08/12/2021, 11/26/2020, 11/14/2020, Additional history exists Influenza Vaccine (#1) 2024 05/04/2021, 2020 Fall Risk Assessment 01/26/2025 01/27/2024 Medical Devices Implanted Type Area Cocoa Powder Mixer Operator Device Identifier Shelf Expiration Date Model / Serial / Lot Pacemaker Pacemaker Chest Procedures Procedure Name Priority Date/Time Associated Diagnosis Comments DEVICE CHECK - REMOTE Routine 07/18/2024 12:06 PM MANAGEMENT RECRUITER History of complete AV block from Last 3 Months Results * DEVICE CHECK - REMOTE (07/18/2024 12:06 PM MANAGEMENT RECRUITER) Anatomical Region Laterality Modality Other Narrative 09/12/2024 8:48 AM MANAGEMENT RECRUITER Medtronic Eugenie Dual Pacemaker. Dx; Second Degree AVB, Symptomatic Bradycardia. DOI 05/02/2019-Dr Zenia Good ([place]). Carelink remote. Routine DDDR Pacemaker Remote. Transmission attached. Battery status: ??2.94 V, 3.3 years remaining battery life to HERMELINDO. Stable lead impedances, pacing and sensing thresholds. Presenting rhythm: ??A sensed/V paced AP-14.7%, GLASS RIBBON MACHINE OPERATOR ASSISTANT-99.9% No AT/AF episodes noted. No Ventricular high rate episodes detected. Medications: ??Plavix 75 mg, carvedilol 25 mg, amlodipine 10 mg See scanned report. Office pacemaker follow up: ??6 months [facility] remote f/u 10/24/24. Kobe Soto RN Josiah Lay MD CV CARDIAC SERVICES PROCEDURES F inal Result from Last 3 Months Insurance MEDICARE SOLUTIONS MEDICARE SOLUTIONS [facility] CHOICE PLUS MEDICARE MEDICARE SOLUTIONS Advance Directives For more information, please contact: [phone] * Full Code (Latest Code Status on File) Date Activated Date Inactivated Comments 06/12/2021 8:06 PM 06/23/2021 5:12 PM * Full Code Date Activated Date Inactivated Comments 06/10/2021 9:01 PM 06/12/2021 8:06 PM Care Teams Wheel Setter Relationship Specialty Start Date End Date Ranulfo Romo DO PCP - General Family Medicine 04/08/22 Daniela Hilario NP Nurse Practitioner Nurse Practitioner 03/26/22
--- OUTSIDE RECORDS SUMMARY | 2024-09-17 15:24 | XMS_ITS | Patient Health Record ---
Author Organization [facility] Billing Info Address [address] [place] [id number] Support Name Relationship Address Phone Meggan Hill Emergency Contact [address] [place] [address] Frdedy Hill Guarantor Unknown [phone] Reason For Referral No Information Plan Of Treatment No Information Insurance Providers Payer Name Payer Address Payer Phone Subscriber Number Group Number Insured Name Patient Relationship to Insured Coverage Start Date Coverage End Date BCBSUT GEOVANY PINEDA [address] [address] [place], [place] [id number] Freddy Hill Self - patient is the insured 5 5 [employer] OPEN ACCESS PLUS O POS [address] KAREN BOBO [id number] Freddy Hill Self - patient is the insured 2 0
[2024-09-17 20:52] LABS: Alanine Aminotransferase 24 U/L (6-50); Albumin Level 3.4 g/dL (3.5-5.1); Alkaline Phosphatase 124 U/L (38-126); Anion Gap 4 mmol/L (4-12); Aspartate Amino Transferase 45 U/L (17-59); Bilirubin,Total 0.5 mg/dL (0.2-1.3); Blood Urea Nitrogen 26 mg/dL (9-20); Calcium 8.4 mg/dL (8.4-10.2); Carbon Dioxide 36 mmol/L (22-30); Chloride 99 mmol/L (98-107); Estimated Glomerular Filt Rate 44; Glucose 107 mg/dL (65-110); Potassium 4.7 mmol/L (3.4-5.0); Sodium 139 mmol/L (137-145)
== END 2024-09-17 14:25 | disposition home or self-care (01) ==
LOC: HOME HLTH 14:29
PROVIDERS: PCP Nurse Practitioner; Visit Provider Internal Medicine Pulmonary Disease
DX: J96.90 Respiratory failure, unspecified, unspecified whether with hypoxia or hypercapnia (principal); J18.9 Pneumonia, unspecified organism
CPT/HCPCS: 80053

== ENCOUNTER 2024-09-24 13:10 | Outpatient (CLI) | payer MEDICARE, SELFPAY ==
--- OUTSIDE RECORDS SUMMARY | 2024-09-24 14:06 | XMS_ITS | Encounter Summary ---
Author Organization [facility] Healthcare Address [address] [place] [address] Care Team Providers Care Accounting Specialist Name Role Phone Daniela Hilario MOTHER'S HELPER Unavailable [phone] Ranulfo Romo DO Primary Care Provider [phone] Reason for Visit * Auth/Cert (Routine) Specialty Diagnoses / Procedures Referred By Jovany carver Referred To Contact Diagnoses Stricture of bulbous urethra in male, unspecified stricture type Stricture of bulbous urethra in male, unspecified stricture type [N35.912] Procedures [place] NJX RETROGRADE URETHROCSTOGRAPY [place] CYSTOURETHROSCOPY W/INTERNAL URETHROTOMY [place] CYSTO W/DILAT RX BALO CATH URTL STRIX/STEN MALE [place] DILAT URETHRAL STRIX DILATOR MALE 1ST [place] INSJ NON-NDWELLG BLADDER CATHETER CYSTOSCOPY URETHRAL DILATION; CYSTOSCOPY, DILATION OF URETHRAL STRICTURE, DIRECT VISION INTERNAL URETHROTOMY,RETROGRADE URETHROGRAM, OPTILUME 24F & 30F 5CM BALLOON DILATION WITH CASPER CATHETER PLACEMENT CYSTOSCOPY URETHROGRAM URETHROTOMY - DIRECT VISION Referral ID Status Reason Start Date Expiration Date Visits Re quested Visits Authorized [id number] 1 1 Encounter Details Date Type Department Care Team (Late st Contact Info) Description 09/04/2024 Hospital Encounter [facility] Operating Room [address] [place] [address] [place] [address] [place] [address] Social History Tobacco Use Types Packs/Day Years [...] CDT Gender Identity Male 08/12/2022 2:14 PM SNACK BAR COOK Sexual Orientation Not on file documented as of this encounter Nursing Notes * Katlyn Hanks RN - 08/24/2024 8:33 AM CST Sleep apnea discharge instructions reviewed with patient and placed on chart K BAR COOK documented in this encounter Miscellaneous Notes * Perioperative Nursing Note - Katlyn Hanks RN - 08/24/2024 11:36 AM CST Spoke again with Akila at Dr Childress's office, she instructed me that Dr Childress wants patient to hold Plavix and Pletal for chandrika days prior to surgery. Patient informed and verbalized understanding K BAR COOK * Perioperative Nursing Note - Katlyn Hanks RN - 08/24/2024 10:59 AM CST Spoke with Akila from Dr Childress's office regarding holding plavix and pletal. She states 7 days for plavix and she will contact Dr Childress regarding pletal and let patient know. K BAR COOK * Perioperative Nursing Note - Katlyn Hanks RN - 08/24/2024 8:58 AM CST Pre operative instructions reviewed with patient , he verbalized understanding. Patient states he will reach out to his admittance attendant to confirm hold time for plavix and Pletal. I will reach out to María's office for confirmation. K BAR COOK * Pre-Procedure Instructions - Katlyn Hanks RN - 08/24/2024 8:48 AM CST [phone] We are pleased that you and your doctor have chosen [facility] for your surgery. We hope that the [...] Take as prescribed Use no make-up, nail armenian, lotions, oils or powders on your skin. [...] down the duran until you see the [employer]/coffee shop, there will be elevators to the [...] posted at the top of the page. K BAR COOK K BAR COOK documented in this encounter Plan of Treatment [...] 06/07/2024 added in this encounter Care Teams Accounting Specialist Relationship Specialty Start Date End Date Ranulfo Romo DO PCP - General Family Medicine 04/08/22 Daniela Hilario NP Nurse Practitioner Nurse Practitioner 03/26/22 documented as of this encounter
--- OUTSIDE RECORDS SUMMARY | 2024-09-24 14:06 | XMS_ITS | Encounter Summary ---
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
--- OUTSIDE RECORDS SUMMARY | 2024-09-24 14:06 | XMS_ITS | Encounter Summary ---
Author Organization [facility] Address [address] [place] [address]. [place], [place] [address] [place] [address] Care Team Providers Care Acid Purifier Name Role Phone Ranulfo Romo DO Primary Care Provider [phone] Josiah Lay MD Unavailable Daniela Hilario [facility] Unavailable + [phone] Encounter Details Date Type Department Care Team (Late st Contact Info) Description 04/05/2022 [facility] Patient Accounts [address] [place] [address] [facility] Provider Auto Pay Payment Plan Social History Tobacco Use Types Packs/Day Years Used Date Smoking Tobacco: Former Cigarettes 2 40 1 0 - 2009 Smokeless Tobacco: Never Alcohol Use Standard Drinks/Week Comments Not Currently 0 (1 standard drink = 0.6 oz pur e alcohol) Sex and Gender Information Value Date Recorded Sex Assigned at Not on file 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 Gender Identity Male 10/27/2021 1:50 PM LOOP MACHINE OPERATOR Sexual Orientation Straight 10/27/2021 1: 50 PM LOOP MACHINE OPERATOR documented as of this encounter Plan of Treatment Not on file documented as of this encounter Visit Diagnoses Not on filedocumented in this encounter Care Teams Acid Purifier Relationship Specialty Start Date End Date Ranulfo Romo DO [address] [place] [address] [place] [address] PCP - General FAMILY PRACTICE 03/30/22 Josiah Lay MD [address] [place] [address] CARDIOVASCULAR DISEASE 03/30/22 Daniela Hilario, [facility]- [address] [facility] [address] [place] [address] Nurse Practitioner Family 03/30/22 documented as of this encounter
--- OUTSIDE RECORDS SUMMARY | 2024-09-24 14:06 | XMS_ITS | Clinical Summary ---
Author Organization [facility] Address [address] [place] [address]. 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 Gender Identity Male 10/27/2021 1:50 PM PERSONAL TRAINER Sexual Orientation Straight 10/27/2021 1: 50 PM PERSONAL TRAINER Last Filed Vital Signs Vital Sign Reading [...] 1 - PCV) 2016 04/22/2012 COVID-19 Vaccine (5 - season) 2024 02/26/2022, 08/12/2021, 11/26/2020, Additional history exists Influenza Adult (#1) 2024 04/24/2021 RSV Immunization or 60+ Years (1 - 1-dose 75+ series) 2026 Meningococcal B Vaccine Aged Out No l onger eligible based on patient's age to complete this topic Meningococcal Vaccine Aged Out No steve marce eligible based on patient's age to complete this topic RSV Immunizations Under 20 Months Aged Out No longer eligible based on patient's age to complete this topic Insurance [id number] Advance Directives Documents on File Type Date Recorded 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
--- OUTSIDE RECORDS SUMMARY | 2024-09-24 14:06 | XMS_ITS | Encounter Summary ---
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 [employer] Sexual Orientation Not on file documented as of this encounter Plan of Treatment Not on file documented as of this encounter Procedures Procedure Name Priority Date/Time Associated Diagnosis Comments SCAN - LABS 02/17/2024 documented in this encounter Results * SCAN - LABS (02/17/2024) us Provider Scanning Final Result documented in this encounter Visit Diagnoses Not on filedocumented in this encounter Care Teams Vacuum Truck Driver Relationship Specialty Start Date End Date Ranulfo Romo DO PCP - General Family Medicine 04/08/22 Daniela Hilario NP Nurse Practitioner Nurse Practitioner 03/26/22 documented as of this encounter
--- OUTSIDE RECORDS SUMMARY | 2024-09-24 14:06 | XMS_ITS | Referral Summary ---
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 Name Role Phone Daniela Hilario PROJECTOR OPERATOR Unavailable [phone] Ranulfo Romo DO Primary Care Provider [phone] Encounters Date Type Department Care Team Description 09/20/2024 Telephone [facility] Infectious Diseases [address] [place] [phone] Vicki Hahn, SHASHANK 09/19/2024 Orders Only [facility] Infectious Diseases [address] [place] [address] [phone] Vicki Hahn, SHASHANK 09/19/2024 Telephone [facility] Infectious Diseases [address] [place] [address] [phone] Danielle Gonsalez 09/18/2024 11:41 AM POT MAKER - 09/18/2024 11:59 PM POT MAKER Hospital Encounter [facility] [address] [place] [address] Other specified respiratory disorders; Pulmonary mycobacterial infection (CMS/HCC) (HCC); Bronchiectasis, uncomplicated (HCC); Other nonspecific abnormal finding of lung field Discharge Disposition: Discharge to home or self care 09/18/2024 10:23 AM POT MAKER - 09/18/2024 11:59 PM POT MAKER Hospital Encounter [facility] ([facility] [address] [place] [phone] Diagnosis unknown Discharge Disposition: Discharge to home or self care 09/18/2024 10:20 AM POT MAKER Office Visit [facility] Infectious Diseases [address] [place] [address] [address] [place] [address] Vicki Hahn, SHASHANK Pulmonary Mycobacterium kansasii infection (HCC) (Primary Dx); Encounter for screening examination for sexually transmitted disease; Pulmonary mycobacterial infection (CMS/HCC) (HCC); Bronchiectasis, uncomplicated (HCC); Other nonspecific abnormal finding of lung field; Other specified respiratory disorders; Pseudomonas (aeruginosa) (mallei) (pseudomallei) as the cause of diseases classified elsewhere 09/17/2024 8:14 PM POT MAKER - 09/17/2024 11:59 PM POT MAKER Hospital Encounter [facility] ([facility]) [address] [place] [phone] Discharge Disposition: Discharge to home or self care 09/17/2024 8:09 PM POT MAKER - 09/17/2024 11:59 PM POT MAKER Hospital Encounter [facility] ([facility]) [address] [place] [phone] Discharge Disposition: Discharge to home or self care 09/04/2024 12:31 PM POT MAKER - 09/04/2024 11:59 PM POT MAKER Hospital Encounter [facility] Emergency, Room R Discharge Disposition: Discharge to home or self care 09/04/2024 Hospital Encounter [facility] Operating Room [address] [place] [address] Minerva Childress MD 07/18/2024 8:00 AM POT MAKER Ancillary Procedure [facility] [address] [facility] [address] [place] [phone] Symptomatic bradycardia (Primary Dx); History of [...] 6 (six) hours 30 tablet 1 Active tamsulosin (FLOMAX) 0.4 mg extended release capsule [...] inhaler Inhale 2 puffs daily 4 Active benzonatate (TESSALON) 100 mg capsule Take 1 capsule (100 mg total) by mouth 3 (three) times a day 4 Active magnesium oxide 500 mg capsule Take 500 mg by mouth daily Active multivitamin-i reny-folic acid 18-400 mg-mcg tabletIndicati ons:Vitamin Deficiency Prevention Take 1 tablet by mouth daily Active cetirizine 10 mg capsule Take 10 mg by mouth nightly as needed Active azithromycin (ZITHROMAX) 500 mg tablet Take 1 tablet (500 mg total) by mouth daily 30 tablet 2 5 025 Active rifabutin (MYCOBUTIN) 150 mg capsule Take 2 capsules (300 mg total) by mouth daily 60 capsule 2 5 025 Active ethambutoL (MYAMBUTOL) 400 mg tabletIndicati ons:Mycobacter iosis Take 3 tablets (1,200 mg total) by mouth daily 90 tablet 2 5 025 Active ethambutoL (MYAMBUTOL) 400 mg tabletIndicati ons:Mycobacter iosis Take 3 tablets (1,200 mg total) by mouth 3 (three) times a week Take on Tuesday, Tuesday, and Tuesday 36 tablet 2 01/29/ 025 Discontin ued(Reord er) Active Problems Problem Noted Date Diagnosed Date 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 08/13/2024 Angina pectoris, unstable ([facility]) 01/11/2024 Abnormal stress test 01/11/2024 Pain in both lower extremities 12/30/2021 Overview (12/30/2021): Added automatically from request for surgery [id number] ALFREDO (acute kidney injury) 06/16/2021 Assessment & [...] kidney disease) stage 4, GFR 15-29 ml/min ([facility]) 06/11/2021 Assessment & Plan (06/19/2021 8:25 AM CDT): At time of admission creat baseline 2.5 - renal following - Avoid other nephrotoxic medications - Monitor labs Empyema ([facility]) 06/10/2021 Assessment & Plan (07/10/2021 8:59 PM POT MAKER): - Currently receiving Ceftriaxone 2 g IV [...] pacemaker in situ 06/03/2021 Overview (06/03/2021): Medtronic Mark[place] Dual Pacemaker. Dx; Second Degree AVB, Symptomatic Bradycardia. DOI 05/02/2019-Dr Zenia Good ([place]). [facility]link remote. Assessment & Plan (06/11/2021 8:06 [...] CDT Gender Identity Male 08/12/2022 2:14 PM POT MAKER Sexual Orientation Not on file Last Filed Vital Signs Vital Sign Reading Time Taken Comments Blood Pressure 131/64 09/18/2024 10:22 AM POT MAKER Pulse 83 09/18/2024 10:22 AM POT MAKER Temperature 36.6 ??C (97.8 ??F) 09/18/2024 1 0:22 AM POT MAKER Respiratory Rate 24 01/27/2024 8:49 AM CDT Oxygen Saturation 91% 09/18/2024 10: 22 AM POT MAKER Inhaled Oxygen Concentration - - Weight 68.4 kg (150 lb 12.7 oz) 025 10:22 AM POT MAKER Height 172.7 cm (5' 8 ) 04/25/2024 12:5 7 PM CDT Body Mass Index 22.93 04/25/2024 12:57 PM CDT Plan of Treatment Not on file Medical Devices Implanted Type Area Boarder Hand Device Identifier Shelf Expiration Date Model / Serial / Lot Pacemaker Pacemaker Chest Procedures Procedure Name Priority Date/Time Associated Diagnosis Comments COCCIDIOIDES ANTIBODIES Routine 09/18/2024 11:41 AM POT MAKER EGFR Routine 09/18/2024 11:41 AM POT MAKER COMPREHENSIVE METABOLIC PANEL Routine 09/18/2024 11:41 AM POT MAKER DIFFERENTIAL AUTO Routine 09/18/2024 11: 41 AM POT MAKER Pulmonary mycobacterial infection (CMS/HCC) (HCC) CBC WITH AUTO DIFFERENTIAL Routine 09/18/2024 11:41 AM POT MAKER Pulmonary mycobacterial infection (CMS/HCC) (HCC) CYSTATIN C Routine 09/18/2024 11:41 AM POT MAKER Pulmonary mycobacterial infection (CMS/HCC) (HCC) Bronchiectasis, uncomplicated (HCC) Other nonspecific abnormal finding of lung field Other specified respiratory disorders COCCIDIOIDES ANTIBODY SCREEN W/REFLEX Routine 09/18/2024 11:41 AM POT MAKER Pulmonary mycobacterial infection (CMS/HCC) (HCC) Bronchiectasis, uncomplicated (HCC) Other nonspecific abnormal finding of lung field Other specified respiratory disorders HEPATITIS C ANTIBODY Routine 09/18/2024 11:41 AM POT MAKER Other specified respiratory disorders HIV 1/2 ANTIBODY PLUS P24 ANTIGEN Routine 09/18/2024 11:41 AM POT MAKER Other specified respiratory disorders CT BODY OUTSIDE CONSULT Routine 09/18/2024 10:24 AM POT MAKER Diagnosis unknown CT BODY OUTSIDE REFERENCE Routine 09/17/2024 8:[address] BODY OUTSIDE REFERENCE Routine 09/17/2024 8:09 PM POT MAKER DEVICE CHECK - REMOTE Routine 07/18/2024 12:06 PM POT MAKER History of complete AV block from Last 3 Months Results * Coccidioides antibody screen w/reflex Blood (09/18/2024 11:41 AM POT MAKER) Pathologist [facility] Coccidioides ab screen, ser Reactive Negative [facility] Comment: Confirmatory testing by complement fixation and immunodiffusion has been ordered. ADDITIONAL INFORMATION This test has been modified from the artists' booking representative's instructions. Its performance characteristics were determined by [facility] in a manner consistent with CLIA requirements. This test has not been cleared or approved by the U.S. Food and Drug Administration. Test Performed by: [facility] [place] [address] Janitorial Tech: Moy Hale Ph.D.; CLIA# [id number] Blood 09/18/2024 11:4 1 AM POT MAKER 09/18/2024 4:09 PM POT MAKER Vicki Hahn PROJECTOR OPERATOR LAB MICROBIOLOGY - GENERA L ORDERABLES Final Result [facility] One [facility] Department [place] [address] [place] ref [facility] * (ABNORMAL) eGFR (09/18/2024 11:41 AM POT MAKER) Pathologist [facility] eGFR 47(L) >=60 mL/min/1. 73 m2 Comment: Interpretive Data Reference Interval Normal ?>/= 90 mL/min/1.73m2 Mildly decreased* ? 60 - 89 mL/min/1.73m2 Mildly to moderately decreased ?45 - 59 mL/min/1.73m2 Moderately to severely decreased ??30 - 44 mL/min/1.73m2 Severely decreased ?15 - 29 mL/min/1.73m2 Kidney Failure ?< 15 ??mL/min/1.73m2 *Relative to young adult level Estimated glomerular filtration rate is determined by the 2020 CKD-EPI equation recommended by the National Kidney Foundation (A Unifying Approach to GFR Estimation: Recommendations of the NKF-ASK Task Force on Reassessing the Inclusion of Race in Diagnosing Kidney Disease, JASN 2020). The CKD-EPI equation should not be used for patients with unstable renal function and has not been validated in children and those over 70. Current interpretive data was last reviewed 2021. Blood 09/18/2024 11:4 1 AM POT MAKER 09/18/2024 4:38 PM POT MAKER us Vicki Hahn PROJECTOR OPERATOR LAB BLOOD ORDERABLES Tyra bowling Result [facility] One [facility] Department [place] [address] * (ABNORMAL) Differential, auto (09/18/2024 11:41 AM POT MAKER) Pathologist [facility] Neutrophil abs 6.6(H) 1.5 - 6.5 K/cumm Imm gran abs 0.0 0.0 - 0.1 K/cumm [facility] Lymphocyte abs 0.8 0.8 - 3.3 K/cumm [facility] Monocyte abs 0.5 0.2 - 0.8 K/cumm [facility] Eosinophil abs 0.4 0.0 - 0.5 K/cumm [facility] Basophil abs 0.0 0.0 - 0.1 K/cumm [facility] Neutrophil pct 79.2 % [facility] Comment: Interpretive Data Percent cell count reference ranges are not reported, since discordance with absolute values may lead to misinterpretation of CBC data. Current Interpretive Data was last revised on 2017. Imm gran pct 0.4 % [facility] Comment: Interpretive Data Percent cell count reference ranges are not reported, since discordance with absolute values may lead to misinterpretation of CBC data. Current Interpretive Data was last revised on 2017. Lymphocyte pct 9.0 % [facility] Comment: Interpretive Data Percent cell count reference ranges are not reported, since discordance with absolute values may lead to misinterpretation of CBC data. Current Interpretive Data was last revised on 2017. Monocyte pct 5.6 % [facility] Comment: Interpretive Data Percent cell count reference ranges are not reported, since discordance with absolute values may lead to misinterpretation of CBC data. Current Interpretive Data was last revised on 2017. Eosinophil pct 5.3 % [facility] Comment: Interpretive Data Percent cell count reference ranges are not reported, since discordance with absolute values may lead to misinterpretation of CBC data. Current Interpretive Data was last revised on 2017. Basophil pct 0.5 % [facility] Comment: Interpretive Data Percent cell count reference ranges are not reported, since discordance with absolute values may lead to misinterpretation of CBC data. Current Interpretive Data was last revised on 2017. Blood 09/18/2024 11:4 1 AM POT MAKER 09/18/2024 3:56 PM POT MAKER us Vicki Hahn PROJECTOR OPERATOR LAB BLOOD ORDERABLES Tyra l Result [facility] One [facility] Department [place] [address] * HIV 1/2 Antibody plus p24 Antigen Blood (09/18/2024 11:41 AM POT MAKER) HIV 1/2 ab + p24 ag Nonreactive Nonreactive Comment:Nonreactive for HIV- 1 antigen and HIV-1/HIV-2 antibodies. No laboratory evidence of HIV infection. If acute HIV infection is suspected, consider testing for HIV-1 RNA. Current interpretive data was last revised on 22. Blood 09/18/2024 11:4 1 AM POT MAKER 09/18/2024 3:56 PM POT MAKER Vicki Hahn NP LAB MICROBIOLOGY - GENERA L ORDERABLES Final Result Performing Organization Address [facility] de Phone Number [facility] Department [place] [address] * (ABNORMAL) Cystatin C (09/18/2024 11:41 AM POT MAKER) [facility] Cystatin C 1.78(H) 0.60 - 1.20 mg/L Comment: Interpretive Data Cystatin C concentrations vary widely in the first month of life, particularly in pre-term infants. ??Concentrations gradually diminish to adult levels by 1 year of life. ??Concentrations tend to rise with diminishing renal function in individuals greater than 60 years of age. ??Current Interpretive Data was last revised on 2020. Testing performed by: [facility], [facility], [place]., [address] Blood 09/18/2024 11:4 1 AM POT MAKER 09/18/2024 6:36 PM POT MAKER us Vicki Hahn NP LAB BLOOD ORDERABLES Tyra l Result Performing Organization Address [facility] de Phone Number [facility] Department [place] [address] * (ABNORMAL) CBC with auto differential (09/18/2024 11:41 AM POT MAKER) [facility] WBC 8.4 3.8 - 9.9 K/cumm Hgb 9.3(L) 13.0 - 17.5 g/dL [facility] Hct 32.6(L) 38.9 - 50.3 % [facility] Plt 120(L) 150 - 400 K/cumm [facility] MPV 10.6 9.1 - 12.3 fL [facility] RBC 3.86(L) 4.30 - 5.80 M/cumm [facility] MCV 84.5 81.3 - 96.4 fL [facility] MCH 24.1(L) 27.1 - 33.3 pg [facility] MCHC 28.5(L) 32.3 - 35.7 g/dL [facility] RDW CV 16.4(H) 11.1 - 14.9 % [facility] RDW SD 50.5(H) 35.7 - 48.1 fL [facility] NRBC abs 0.00 0.00 - 0.01 K/cumm [facility] Blood 09/18/2024 11:4 1 AM POT MAKER 09/18/2024 3:56 PM POT MAKER Vicki Hahn PROJECTOR OPERATOR LAB BLOOD ORDERABLES Tyra l Result Performing Organization Address City/[facility]/ZIP Co de Phone Number [facility] Department [place] [address] * Hepatitis C antibody Blood (09/18/2024 11:41 AM POT MAKER) [facility] Hep C Ab Nonreactive Nonreactive Comment:Antibodies to HCV no t detected. Does NOT exclude the possibility of recent exposure to HCV. Current interpretive data was last revised on 22 Blood 09/18/2024 11:4 1 AM POT MAKER 09/18/2024 3:56 PM POT MAKER Vicki Hahn PROJECTOR OPERATOR LAB MICROBIOLOGY - GENERA L ORDERABLES Final Result Performing Organization Address City/[facility]/ZIP Co de Phone Number [facility] Department [place] [address] * Coccidioides antibodies (09/18/2024 11:41 AM POT MAKER) [facility] Coccidioides ab comp fix Negative Negative [facility] ref [facility] Coccidioides IgG ImmDiff Negative Negative [facility] Coccidioides IgM ImmDiff Negative Negative [facility] Comment: The EIA may be reactive prior to complement fixation and immunodiffusion (CompF/ImmDiff), or may be falsely-reactive. ??Repeat testing by CompF/ImmDiff in 2-3 weeks if clinically indicated. Test Performed by: [facility] [address] [place] [address] Janitorial Tech: Moy Hale Ph.D.; CLIA# [id number] Blood 09/18/2024 11:4 1 AM POT MAKER 09/18/2024 4:09 PM POT MAKER us Vicki Hahn NP LAB BLOOD ORDERABLES Tyra bowling Result [facility] One [facility] Department [place] [address] [place] ref [facility] * (ABNORMAL) Comprehensive metabolic panel (09/18/2024 11:41 AM POT MAKER) Sodium 145 135 - 145 mmol/L Potassium, pl 4.9 3.3 - 4.9 mmol/L [facility] Chloride 104 97 - 110 mmol/L [facility] CO2 33(H) 22 - 32 mmol/L [facility] Anion gap 8 2 - 15 mmol/L [facility] BUN 22 6 - 25 mg/dL [facility] Creatinine 1.56(H) 0.80 - 1.30 mg/dL [facility] Glucose 67(L) 70 - 199 mg/dL [facility] Comment: Interpretive Data Fasting glucose >/= [...] classification and Diagnosis of Diabetes Diabetes Care 2021; 46: S19-S40. Current interpretive data was last revised 2022. Calcium 8.7 8.5 - 10.3 mg/dL [facility] Bilirubin, total 0.3 0.1 - 1.2 mg/dL [facility] Protein, pl 7.1 6.5 - 8.5 g/dL [facility] Albumin 3.6 3.5 - 5.0 g/dL [facility] Alk phos 126 40 - 130 Units/L [facility] ALT 22 7 - 55 Units/L [facility] AST 26 10 - 50 Units/L [facility] Blood 09/18/2024 11:4 1 AM POT MAKER 09/18/2024 4:18 PM POT MAKER us Vicki Hahn NP LAB BLOOD ORDERABLES Tyra bowling Result [facility] One [facility] Department [place] [address] * CT Body Outside Consult (09/18/2024 10:24 AM POT MAKER) Anatomical Region Laterality Modality Body N/A Computed Tomogra phy 09/18/2024 12:1 7 PM POT MAKER Impressions 09/18/2024 12:17 PM POT MAKER Increased centrilobular nodules, bronchial wall thickening and areas of nodular consolidation, compatible with worsening atypical mycobacterial infection although one or more of the nodules could represent superimposed malignancy. ??These findings are superimposed on a background of severe emphysema. ??Recommend follow-up CT chest in 3 months to assess for stability. The findings, conclusions and recommendations within this report do not replace the initial findings, conclusions ??and recommendations made at the facility where the study was performed based upon the imaging and clinical condition at that time. ??Comparison with the prior report and clinical history is necessary. ??The provided images may or may not represent the [place] source data set and thus may contain changes that may lower the accuracy of this second-opinion interpretation. Electronically signed by: Wilman Perez MD, PHD Narrative 09/18/2024 12:17 PM POT MAKER EXAMINATION: RADIOLOGY CONSULTATION ON OUTSIDE IMAGING STUDY STUDY INITIALLY PERFORMED: 07/18/[address] [facility]. TYPE OF STUDY: Multiple CT images of the chest without contrast are provided at the time of this interpretation. CONTRAST ROUTE: No contrast was administered. The protocol was adequate to address the clinical question. The outside final report was not available at the time of this second opinion interpretation. TYPE OF CONSULTATION: Consult on outside imaging study with images submitted through Outside Image Sharing Service DATE OF CONSULTATION: 09/18/2024 12:00 PM HISTORY: Atypical mycobacterial infection. COMPARISON: 06/30/2023 FINDINGS: Heart size is mildly enlarged. ??A subsequent approach pacemaker with right atrial and right ventricular leads. ??No pericardial effusion. Severe calcified coronary artery disease. ??The thoracic aorta is atherosclerotic and tortuous. ??There is an unchanged penetrating atherosclerotic ulcer along the inferior margin of the aortic arch without evidence of acute instability. ??Mild wall thickening of the distal esophagus suggestive of esophagitis. ??No supraclavicular or axillary lymphadenopathy. ??Mildly enlarged mediastinal lymph nodes are stable and likely reactive. There is no pleural effusion or pneumothorax. ??Small amount of secretions are present in the central airways. ??Severe upper lobe predominant emphysema is again seen. ??Bilateral centrilobular nodules and bronchial wall thickening with a mild basilar predominance is again seen and is mildly increased from 06/30/2023 in keeping with history of atypical mycobacterial infection. ??Areas of increased centrilobular nodularity and small thickening can be seen for example in the superior segment of the right lower lobe (series 4, image 87). Involvement of the anterior right upper lobe is also mildly increased (series 4, image 53). ??The greatest involvement in the left lower lobe is not substantially changed. ??There is a new area of nodular consolidation around mild bronchiectasis in the left lung apex (series 4, image 22). ??There is also a new area of peripheral consolidation in the anterior left upper lobe on series 4, image 45). Limited images of the upper abdomen demonstrate severe atherosclerosis of the upper abdominal aorta and image branch vessels. ??Hemorrhagic or proteinaceous left upper pole renal cyst. There is intermediate density exophytic right upper pole renal cyst, which likely also contains hemorrhagic or pernicious contents but is technically indeterminate. ??Scarring is noted in the left kidney. Changes of left thoracotomy are again seen. ??No suspicious lytic or blastic lesion. Procedure Note Wilman Perez MD PhD - 09/18/2024 EXAMINATION: RADIOLOGY CONSULTATION ON OUTSIDE IMAGING STUDY STUDY INITIALLY PERFORMED: 07/18/[address] [facility]. TYPE OF STUDY: Multiple CT images of the chest without contrast are provided at the time of this interpretation. CONTRAST ROUTE: No contrast was administered. The protocol was adequate to address the clinical question. The outside final report was not available at the time of this second opinion interpretation. TYPE OF CONSULTATION: Consult on outside imaging study with images submitted through Outside Image Sharing Service DATE OF CONSULTATION: 09/18/2024 12:00 PM HISTORY: Atypical mycobacterial infection. COMPARISON: 06/30/2023 FINDINGS: Heart size is mildly enlarged. A subsequent approach pacemaker with right atrial and right ventricular leads. No pericardial effusion. Severe calcified coronary artery disease. The thoracic aorta is atherosclerotic and tortuous. There is an unchanged penetrating atherosclerotic ulcer along the inferior margin of the aortic arch without evidence of acute instability. Mild wall thickening of the distal esophagus suggestive of esophagitis. No supraclavicular or axillary lymphadenopathy. Mildly enlarged mediastinal lymph nodes are stable and likely reactive. There is no pleural effusion or pneumothorax. Small amount of secretions are present in the central airways. Severe upper lobe predominant emphysema is again seen. Bilateral centrilobular nodules and bronchial wall thickening with a mild basilar predominance is again seen and is mildly increased from 06/30/2023 in keeping with history of atypical mycobacterial infection. Areas of increased centrilobular nodularity and small thickening can be seen for example in the superior segment of the right lower lobe (series 4, image 87). Involvement of the anterior right upper lobe is also mildly increased (series 4, image 53). The greatest involvement in the left lower lobe is not substantially changed. There is a new area of nodular consolidation around mild bronchiectasis in the left lung apex (series 4, image 22). There is also a new area of peripheral consolidation in the anterior left upper lobe on series 4, image 45). Limited images of the upper abdomen demonstrate severe atherosclerosis of the upper abdominal aorta and image branch vessels. Hemorrhagic or proteinaceous left upper pole renal cyst. There is intermediate density exophytic right upper pole renal cyst, which likely also contains hemorrhagic or pernicious contents but is technically indeterminate. Scarring is noted in the left kidney. Changes of left thoracotomy are again seen. No suspicious lytic or blastic lesion. IMPRESSION: Increased centrilobular nodules, bronchial wall thickening and areas of nodular consolidation, compatible with worsening atypical mycobacterial infection although one or more of the nodules could represent superimposed malignancy. These findings are superimposed on a background of severe emphysema. Recommend follow-up CT chest in 3 months to assess for stability. The findings, conclusions and recommendations within this report do not replace the initial findings, conclusions and recommendations made at the facility where the study was performed based upon the imaging and clinical condition at that time. Comparison with the prior report and clinical history is necessary. The provided images may or may not represent the [place] source data set and thus may contain changes that may lower the accuracy of this second-opinion interpretation. Electronically signed by: Wilman Perez MD, PHD Result [facility] Ronn Vitale MD [facility] [place] PROCEDURES Final Resu lt * CT Body Outside Reference (09/17/2024 8:14 PM POT MAKER) Impressions RAD_PACS_[facility] - 09/17/2024 8:14 PM POT MAKER These images are for Reference purposes only and have not been reviewed by [facility]. ??There will be no report generated by a [facility] Radiologist. Narrative RAD_PACS_[facility] - 09/17/2024 8:14 PM POT MAKER EXAMINATION: ??Images For Reference Purposes Only Result [facility] Ronn Vitale MD [facility] [place] PROCEDURES Final Resu Performing Organization Address City/State/[facility] Co de Phone Number RAD_PACS_[facility] * CT Body Outside Reference (09/17/2024 8:09 PM POT MAKER) Impressions RAD_PACS_[facility] - 09/17/2024 8:09 PM POT MAKER These images are for Reference purposes only and have not been reviewed by [facility]. ??There will be no report generated by a [facility] Radiologist. Narrative RAD_PACS_[facility] - 09/17/2024 8:09 PM POT MAKER EXAMINATION: ??Images For Reference Purposes Only Result [facility] Ronn Vitale MD [facility] [place] PROCEDURES Final Resu lt Performing Organization Address [facility]/ZIP Co de Phone Number RAD_PACS_[facility] * DEVICE CHECK - REMOTE (07/18/2024 12:06 PM POT MAKER) Anatomical Region Laterality Modality Other Narrative 09/12/2024 8:48 AM POT MAKER Med[employer]onic Eugenie Dual Pacemaker. Dx; Second Degree AVB, Symptomatic Bradycardia. DOI 05/02/2019-Dr Zenia Good ([place]). [facility] remote. Routine DDDR Pacemaker Remote. Transmission attached. Battery status: ??2.94 V, 3.3 years remaining battery life to HERMEL[place]O. Stable lead impedances, pacing and sensing thresholds. Presenting rhythm: ??A sensed/V paced AP-14.7%, SOFT TILE SETTER-99.9% No AT/AF episodes noted. No Ventricular high rate episodes detected. Medications: ??Plavix 75 mg, carvedilol 25 mg, amlodipine 10 mg See scanned report. Office pacemaker follow up: ??6 months [facility] remote f/u 10/24/24. Kobe Soto RN Josiah Lay MD [facility] PROCEDURES F inal Result from Last 3 Months [place] [address] MEDICARE SOLUTIONS [facility] CHOICE PLUS [place] [address] Advance Directives For more information, please contact: [phone] * Full Code (Latest Code Status on File) Date Activated Date Inactivated Comments 06/12/2021 8:06 PM 06/23/2021 5:12 PM * Full Code Date Activated Date Inactivated Comments 06/10/2021 9:01 PM 06/12/2021 8:06 PM Care Teams Ironworker Apprentice Relationship Specialty Start Date End Date Ranulfo Romo DO PCP - General Family Medicine 04/08/22 Daniela Hilario NP Nurse Practitioner Nurse Practitioner 03/26/22
--- OUTSIDE RECORDS SUMMARY | 2024-09-24 14:06 | XMS_ITS | Clinical Summary ---
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 08/13/2024 Angina pectoris, unstable (CMS/HCC) 01/11/2024 Abnormal stress test 01/11/2024 Pain in both lower extremities 12/30/2021 Overview (12/30/2021): Added automatically from request for surgery [id number] ALFREDO (acute kidney injury) 06/16/2021 Assessment & [...] kidney disease) stage 4, GFR 15-29 ml/min ([facility]) 06/11/2021 Assessment & Plan (06/19/2021 8:25 AM CDT): At time of admission creat baseline 2.5 - renal following - Avoid other nephrotoxic medications - Monitor labs Empyema ([facility]) 06/10/2021 Assessment & Plan (07/10/2021 8:59 PM THERAPY SITE COORDINATOR): - Currently receiving Ceftriaxone 2 g IV [...] pacemaker in situ 06/03/2021 Overview (06/03/2021): Medtronic Elysian Dual Pacemaker. Dx; Second Degree AVB, Symptomatic Bradycardia. DOI 05/02/2019-Dr Zenia Good ([place]). Carelink remote. Assessment & Plan (06/11/2021 8:06 [...] Type Department Care Team Description 09/20/2024 Telephone [facility] Infectious Diseases [address] [place] [phone] Vicki Hahn, SHASHANK 09/19/2024 Orders Only [facility] Infectious Diseases [address] [place] [phone] Vicki Hahn, SHASHANK 09/19/2024 Telephone [facility] Infectious Diseases [address] [place] [phone] Danielle Gonsalez 09/18/2024 11:41 AM THERAPY SITE COORDINATOR - 09/18/2024 11:59 PM THERAPY SITE COORDINATOR Hospital Encounter [address] [address] Other specified respiratory disorders; Pulmonary mycobacterial infection (CMS/HCC) (HCC); Bronchiectasis, uncomplicated (HCC); Other nonspecific abnormal finding of lung field Discharge Disposition: Discharge to home or self care 09/18/2024 10:23 AM THERAPY SITE COORDINATOR - 09/18/2024 11:59 PM THERAPY SITE COORDINATOR Hospital Encounter [facility] ([facility]) [address] [place] [id number] Diagnosis unknown Discharge Disposition: Discharge to home or self care 09/18/2024 10:20 AM THERAPY SITE COORDINATOR Office Visit [facility] Infectious Diseases [address] [place] [phone] Vicki Hahn, SHASHANK Pulmonary Mycobacterium kansasii infection (HCC) (Primary Dx); Encounter for screening examination for sexually transmitted disease; Pulmonary mycobacterial infection (CMS/HCC) (HCC); Bronchiectasis, uncomplicated (HCC); Other nonspecific abnormal finding of lung field; Other specified respiratory disorders; Pseudomonas (aeruginosa) (mallei) (pseudomallei) as the cause of diseases classified elsewhere 09/17/2024 8:14 PM THERAPY SITE COORDINATOR - 09/17/2024 11:59 PM THERAPY SITE COORDINATOR Hospital Encounter [facility] ([facility]) [address] [place] [address] Discharge Disposition: Discharge to home or self care 09/17/2024 8:09 PM THERAPY SITE COORDINATOR - 09/17/2024 11:59 PM THERAPY SITE COORDINATOR Hospital Encounter [facility] ([facility]) [address] [place] [address] Discharge Disposition: Discharge to home or self care 09/04/2024 12:31 PM THERAPY SITE COORDINATOR - 09/04/2024 11:59 PM THERAPY SITE COORDINATOR Hospital Encounter [facility] Emergency, Room R Discharge Disposition: Discharge to home or self care 09/04/2024 Hospital Encounter [facility] Operating Room [address] [place] [address] Minerva Childress MD 07/18/2024 8:00 AM THERAPY SITE COORDINATOR Ancillary Procedure [facility] Cardiology [address] [facility] [address] [place] [phone] Symptomatic bradycardia (Primary Dx); History of complete [...] Covid-19 05/2020 hospitalization 3 days Empyema (CMS/HCC) (HCC) 05/2020 AV block Jun 2020 PM inse rtion Claudication (HCC) PAD (peripheral artery disease) ([facility]) stents in left leg CKD (chronic kidney disease) stage 3, GFR 30-59 ml/min ([facility]) Sleep apnea Asthma Carotid stenosis s/p right CEA Hyperkalemia Pneumonia 2019 Fatigue Vision changes Cramps of lower extremity [...] CDT Gender Identity Male 08/12/2022 2:14 PM THERAPY SITE COORDINATOR Sexual Orientation Not on file Obstetrics History Last Filed Vital Signs Vital Sign Reading Time Taken Comments Blood Pressure 131/64 09/18/2024 10:22 AM THERAPY SITE COORDINATOR Pulse 83 09/18/2024 10:22 AM THERAPY SITE COORDINATOR Temperature 36.6 ??C (97.8 ??F) 09/18/2024 1 0:22 AM THERAPY SITE COORDINATOR Respiratory Rate 24 01/27/2024 8:49 AM CDT Oxygen Saturation 91% 09/18/2024 10: 22 AM THERAPY SITE COORDINATOR Inhaled Oxygen Concentration - - Weight 68.4 kg (150 lb 12.7 oz) 025 10:22 AM THERAPY SITE COORDINATOR Height 172.7 cm (5' 8 ) 04/25/2024 12:5 7 PM CDT Body Mass Index 22.93 04/25/2024 12:57 PM CDT Plan of Treatment Health Maintenance Due Date Last Done Comments Colon Cancer Screening-Colonoscopy 1950 Depression Screening 1950 DTaP/Tdap/Td Vaccine (1 - Tdap) [...] 05/04/2021, 2020 Fall Risk Assessment 01/26/2025 01/27/2024 Hepatitis C Screening Completed 09/18/2024 Medical Devices Implanted Type Area [employer] Counselor Device Identifier Shelf Expiration Date Model / Serial / Lot Pacemaker Pacemaker Chest Procedures Procedure Name Priority Date/Time Associated Diagnosis Comments COCCIDIOIDES ANTIBODIES Routine 09/18/2024 11:41 AM THERAPY SITE COORDINATOR EGFR Routine 09/18/2024 11:41 AM THERAPY SITE COORDINATOR COMPREHENSIVE METABOLIC PANEL Routine 09/18/2024 11:41 AM THERAPY SITE COORDINATOR DIFFERENTIAL AUTO Routine 09/18/2024 11: 41 AM THERAPY SITE COORDINATOR Pulmonary mycobacterial infection (CMS/HCC) (HCC) CBC WITH AUTO DIFFERENTIAL Routine 09/18/2024 11:41 AM THERAPY SITE COORDINATOR Pulmonary mycobacterial infection (CMS/HCC) (HCC) CYSTATIN C Routine 09/18/2024 11:41 AM THERAPY SITE COORDINATOR Pulmonary mycobacterial infection (CMS/HCC) (HCC) Bronchiectasis, uncomplicated (HCC) Other nonspecific abnormal finding of lung field Other specified respiratory disorders COCCIDIOIDES ANTIBODY SCREEN W/REFLEX Routine 09/18/2024 11:41 AM THERAPY SITE COORDINATOR Pulmonary mycobacterial infection (CMS/HCC) (HCC) Bronchiectasis, uncomplicated (HCC) Other nonspecific abnormal finding of lung field Other specified respiratory disorders HEPATITIS C ANTIBODY Routine 09/18/2024 11:41 AM THERAPY SITE COORDINATOR Other specified respiratory disorders HIV 1/2 ANTIBODY PLUS P24 ANTIGEN Routine 09/18/2024 11:41 AM THERAPY SITE COORDINATOR Other specified respiratory disorders CT BODY OUTSIDE CONSULT Routine 09/18/2024 10:24 AM THERAPY SITE COORDINATOR Diagnosis unknown CT BODY OUTSIDE REFERENCE Routine 09/17/2024 8:[address] BODY OUTSIDE REFERENCE Routine 09/17/2024 8:09 PM THERAPY SITE COORDINATOR DEVICE CHECK - REMOTE Routine 07/18/2024 12:06 PM THERAPY SITE COORDINATOR History of complete AV block from Last 3 Months Results * Coccidioides antibody screen w/reflex Blood (09/18/2024 11:41 AM THERAPY SITE COORDINATOR) [facility] Coccidioides ab screen, ser Reactive Negative [facility] Comment: Confirmatory testing by complement fixation and immunodiffusion has been ordered. ADDITIONAL INFORMATION This test has been modified from the certified caregiver's instructions. Its performance characteristics were determined by [facility] in a manner consistent with CLIA requirements. This test has not been cleared or approved by the U.S. Food and Drug Administration. Test Performed by: [facility] [place] [address] Recreation Manager: Moy Hale Ph.D.; CLIA# [id number] Blood 09/18/2024 11:4 1 AM THERAPY SITE COORDINATOR 09/18/2024 4:09 PM THERAPY SITE COORDINATOR us Vicki Hahn NP LAB MICROBIOLOGY - GENERA L ORDERABLES Final Result [facility] Department of Laboratories [place], [place] [id number] [place] [facility] * (ABNORMAL) eGFR (09/18/2024 11:41 AM THERAPY SITE COORDINATOR) [facility] eGFR 47(L) >=60 mL/min/1. 73 m2 Comment: [...] reviewed 2021. Blood 09/18/2024 11:4 1 AM THERAPY SITE COORDINATOR 09/18/2024 4:38 PM THERAPY SITE COORDINATOR us Vicki Hahn NP LAB BLOOD ORDERABLES Tyra bowling Result [facility] Department [place] [address] * (ABNORMAL) Differential, auto (09/18/2024 11:41 AM THERAPY SITE COORDINATOR) Neutrophil abs 6.6(H) 1.5 - 6.5 K/cumm Imm gran abs 0.0 0.0 - 0.1 K/cumm [facility] Lymphocyte abs 0.8 0.8 - 3.3 K/cumm [facility] Monocyte abs 0.5 0.2 - 0.8 K/cumm [facility] Eosinophil abs 0.4 0.0 - 0.5 K/cumm [facility] Basophil abs 0.0 0.0 - 0.1 K/cumm [facility] Neutrophil pct 79.2 % [facility] Comment: Interpretive Data Percent cell count reference ranges are not reported, since discordance with absolute values may lead to misinterpretation of CBC data. Current Interpretive Data was last revised on 2017. Imm gran pct 0.4 % [facility] Comment: Interpretive Data Percent cell count reference ranges are not reported, since discordance with absolute values may lead to misinterpretation of CBC data. Current Interpretive Data was last revised on 2017. Lymphocyte pct 9.0 % [facility] Comment: Interpretive Data Percent cell count reference ranges are not reported, since discordance with absolute values may lead to misinterpretation of CBC data. Current Interpretive Data was last revised on 2017. Monocyte pct 5.6 % [facility] Comment: Interpretive Data Percent cell count reference ranges are not reported, since discordance with absolute values may lead to misinterpretation of CBC data. Current Interpretive Data was last revised on 2017. Eosinophil pct 5.3 % [facility] Comment: Interpretive Data Percent cell count reference ranges are not reported, since discordance with absolute values may lead to misinterpretation of CBC data. Current Interpretive Data was last revised on 2017. Basophil pct 0.5 % [facility] Comment: Interpretive Data Percent cell count reference ranges are not reported, since discordance with absolute values may lead to misinterpretation of CBC data. Current Interpretive Data was last revised on 2017. Blood 09/18/2024 11:4 1 AM THERAPY SITE COORDINATOR 09/18/2024 3:56 PM THERAPY SITE COORDINATOR Vicki Hahn PROCESS STEWARD LAB BLOOD ORDERABLES Tyra bowling Result [facility] Department [place] [address] * HIV 1/2 Antibody plus p24 Antigen Blood (09/18/2024 11:41 AM THERAPY SITE COORDINATOR) Pathologist [facility] HIV 1/2 ab + p24 ag Nonreactive Nonreactive Comment:Nonreactive for HIV- 1 antigen and HIV-1/HIV-2 antibodies. No laboratory evidence of HIV infection. If acute HIV infection is suspected, consider testing for HIV-1 RNA. Current interpretive data was last revised on 22. Blood 09/18/2024 11:4 1 AM THERAPY SITE COORDINATOR 09/18/2024 3:56 PM THERAPY SITE COORDINATOR Vicki Hahn NP LAB MICROBIOLOGY - GENERA L ORDERABLES Final Result Performing Organization Address [facility] de Phone Number [facility] [place] [address] * (ABNORMAL) Cystatin C (09/18/2024 11:41 AM THERAPY SITE COORDINATOR) Pathologist [facility] Cystatin C 1.78(H) 0.60 - 1.20 mg/L Comment: Interpretive Data Cystatin C concentrations vary widely in the first month of life, particularly in pre-term infants. ??Concentrations gradually diminish to adult levels by 1 year of life. ??Concentrations tend to rise with diminishing renal function in individuals greater than 60 years of age. ??Current Interpretive Data was last revised on 2020. Testing performed by: [facility], [facility], [place]., [address] Blood 09/18/2024 11:4 1 AM THERAPY SITE COORDINATOR 09/18/2024 6:36 PM THERAPY SITE COORDINATOR Vicki Hahn NP LAB BLOOD ORDERABLES Tyra l Result Performing Organization Address [facility] de Phone Number [facility] Department [place] [address] * (ABNORMAL) CBC with auto differential (09/18/2024 11:41 AM THERAPY SITE COORDINATOR) Pathologist [facility] WBC 8.4 3.8 - 9.9 K/cumm Hgb 9.3(L) 13.0 - 17.5 g/dL [facility] Hct 32.6(L) 38.9 - 50.3 % [facility] Plt 120(L) 150 - 400 K/cumm [facility] MPV 10.6 9.1 - 12.3 fL [facility] RBC 3.86(L) 4.30 - 5.80 M/cumm [facility] MCV 84.5 81.3 - 96.4 fL [facility] MCH 24.1(L) 27.1 - 33.3 pg [facility] MCHC 28.5(L) 32.3 - 35.7 g/dL [facility] RDW CV 16.4(H) 11.1 - 14.9 % [facility] RDW SD 50.5(H) 35.7 - 48.1 fL [facility] NRBC abs 0.00 0.00 - 0.01 K/cumm [facility] Blood 09/18/2024 11:4 1 AM THERAPY SITE COORDINATOR 09/18/2024 3:56 PM THERAPY SITE COORDINATOR Vicki Hahn PROCESS STEWARD LAB BLOOD ORDERABLES Tyra l Result Performing Organization Address [facility] Co de Phone Number [facility] Department [place] [place] [address] * Hepatitis C antibody Blood (09/18/2024 11:41 AM THERAPY SITE COORDINATOR) [facility] Hep C Ab Nonreactive Nonreactive Comment:Antibodies to HCV no t detected. Does NOT exclude the possibility of recent exposure to HCV. Current interpretive data was last revised on 22 Blood 09/18/2024 11:4 1 AM THERAPY SITE COORDINATOR 09/18/2024 3:56 PM THERAPY SITE COORDINATOR Vicki Hahn PROCESS STEWARD LAB MICROBIOLOGY - GENERA L ORDERABLES Final Result Performing Organization Address City/[facility]/ZIP Co de Phone Number [facility] [place] [employer] [place] [address] * Coccidioides antibodies (09/18/2024 11:41 AM THERAPY SITE COORDINATOR) [facility] Coccidioides ab comp fix Negative Negative [facility] Coccidioides IgG ImmDiff Negative Negative [facility] Coccidioides IgM ImmDiff Negative Negative [facility] Comment: The EIA may be reactive prior to complement fixation and immunodiffusion (CompF/ImmDiff), or may be falsely-reactive. ??Repeat testing by CompF/ImmDiff in 2-3 weeks if clinically indicated. Test Performed by: [facility] [address] [place] [address] Recreation Manager: Moy Hale Ph.D.; CLIA# [id number] Blood 09/18/2024 11:4 1 AM THERAPY SITE COORDINATOR 09/18/2024 4:09 PM THERAPY SITE COORDINATOR us Vicki Hahn PROCESS STEWARD LAB BLOOD ORDERABLES Tyra bowling Result [facility] Department [place] [address] [place] ref [facility] * (ABNORMAL) Comprehensive metabolic panel (09/18/2024 11:41 AM THERAPY SITE COORDINATOR) Sodium 145 135 - 145 mmol/L Potassium, pl 4.9 3.3 - 4.9 mmol/L [facility] Chloride 104 97 - 110 mmol/L [facility] CO2 33(H) 22 - 32 mmol/L [facility] Anion gap 8 2 - 15 mmol/L [facility] BUN 22 6 - 25 mg/dL [facility] Creatinine 1.56(H) 0.80 - 1.30 mg/dL [facility] Glucose 67(L) 70 - 199 mg/dL [facility] Comment: Interpretive Data Fasting glucose >/= [...] 2022. Calcium 8.7 8.5 - 10.3 mg/dL [facility] Bilirubin, total 0.3 0.1 - 1.2 mg/dL [facility] Protein, pl 7.1 6.5 - 8.5 g/dL [facility] Albumin 3.6 3.5 - 5.0 g/dL [facility] Alk phos 126 40 - 130 Units/L [facility] ALT 22 7 - 55 Units/L [facility] AST 26 10 - 50 Units/L [facility] Blood 09/18/2024 11:4 1 AM THERAPY SITE COORDINATOR 09/18/2024 4:18 PM THERAPY SITE COORDINATOR us Vicki Hahn PROCESS STEWARD LAB BLOOD ORDERABLES Tyra bowling Result [facility] [place] [address] * CT Body Outside Consult (09/18/2024 10:24 AM THERAPY SITE COORDINATOR) Anatomical Region Laterality Modality Body N/A Computed Tomogra phy 09/18/2024 12:1 7 PM THERAPY SITE COORDINATOR Impressions 09/18/2024 12:17 PM THERAPY SITE COORDINATOR Increased centrilobular nodules, bronchial wall thickening and [...] images may or may not represent the ambler source data set and thus may contain changes that may lower the accuracy of this second-opinion interpretation. Electronically signed by: Wilman Perez MD, PHD Narrative 09/18/2024 12:17 PM THERAPY SITE COORDINATOR EXAMINATION: RADIOLOGY CONSULTATION ON OUTSIDE IMAGING STUDY STUDY INITIALLY PERFORMED: 07/18/2024 at [facility]. TYPE OF STUDY: Multiple CT [...] IMAGING STUDY STUDY INITIALLY PERFORMED: 07/18/2024 at [facility]. TYPE OF STUDY: Multiple CT [...] images may or may not represent the ambler source data set and thus may contain changes that may lower the accuracy of this second-opinion interpretation. Electronically signed by: Wliman Perez MD, PHD Ronn Vitale MD IM CT PROCEDURES Final Resu lt * CT Body Outside Reference (09/17/2024 8:14 PM THERAPY SITE COORDINATOR) Impressions [facility] - 09/17/2024 8:14 PM THERAPY SITE COORDINATOR These images are for Reference purposes only and have not been reviewed by [facility] Radiology. ??There will be no report generated by a [facility] Radiologist. Narrative RAD_PACS[facility] - 09/17/2024 8:14 PM THERAPY SITE COORDINATOR EXAMINATION: ??Images For Reference Purposes Only Result [facility] Ronn Vitale MD [facility] CT PROCEDURES Final Resu lt Performing Organization Address [facility] de Phone Number [email or web address] * CT Body Outside Reference (09/17/2024 8:09 PM THERAPY SITE COORDINATOR) Impressions [facility] - 09/17/2024 8:09 PM THERAPY SITE COORDINATOR These images are for Reference purposes only and have not been reviewed by [facility]. ??There will be no report generated by a [facility] Radiologist. Narrative [facility] - 09/17/2024 8:09 PM THERAPY SITE COORDINATOR EXAMINATION: ??Images For Reference Purposes Only Result [facility] Ronn Vitale MD IM CT PROCEDURES Final Resu lt Performing Organization Address [facility] Co de Phone Number [email or web address] * DEVICE CHECK - REMOTE (07/18/2024 12:06 PM THERAPY SITE COORDINATOR) Anatomical Region Laterality Modality Other Narrative 09/12/2024 8:48 AM THERAPY SITE COORDINATOR Medtronic Eugenie Dual Pacemaker. Dx; Second Degree AVB, Symptomatic Bradycardia. DOI 05/02/2019-Dr Zenia Good ([place]). Carelink remote. Routine DDDR Pacemaker Remote. Transmission attached. Battery status: ??2.94 V, 3.3 years remaining battery life to HERMELINDO. Stable lead impedances, pacing and sensing thresholds. Presenting rhythm: ??A sensed/V paced AP-14.7%, TRANSPORTATION ENGINEERING TECHNICIAN-99.9% No AT/AF episodes noted. No Ventricular high rate episodes detected. Medications: ??Plavix 75 mg, carvedilol 25 mg, amlodipine 10 mg See scanned report. Office pacemaker follow up: ??6 months CareLink remote f/u 10/24/24. Kobe Soto RN Josiah Lay MD CV CARDIAC SERVICES PROCEDURES F inal Result from Last 3 Months Insurance MEDICARE SOL[employer]IONS [facility] MEDICARE Address: [facility] [address] [place] [address] MED[employer] [facility] MEDICARE Address: [address] [address] [place] [address] [facility] CHOICE PLUS [facility] HMO/PPO Address: [address] [address] [place] [address] MEDICARE MEDICARE SOLUTIONS Advance Directives For more information, please contact: [phone] * Full Code (Latest Code Status on File) Date Activated Date Inactivated Comments 06/12/2021 8:06 PM 06/23/2021 5:12 PM * Full Code Date Activated Date Inactivated Comments 06/10/2021 9:01 PM 06/12/2021 8:06 PM Care Teams Filler In Relationship Specialty Start Date End Date Ranulfo Romo DO PCP - General Family Medicine 04/08/22 Daniela Hilario NP Nurse Practitioner Nurse Practitioner 03/26/22
--- OUTSIDE RECORDS SUMMARY | 2024-09-24 14:06 | XMS_ITS | Encounter Summary ---
Author Organization [facility] Address [address] [place] [address] Phone Care Team Providers Care Industrial Engineering Director Name Role Phone Daniela Hilario RECOVERY ROOM RN Unavailable [phone] Ranulfo Romo DO Primary Care Provider [phone] Encounter Details Date Type Department Care Team (Late st Contact Info) Description 11/22/2023 Orders Only [facility] Scanning, [...] CDT Gender Identity Male 08/12/2022 2:14 PM JUNIOR ESTIMATOR Sexual Orientation Not on file documented as of this encounter Plan of Treatment Not on file documented as of this encounter Procedures Procedure Name Priority Date/Time Associated Diagnosis Comments SCAN - LABS 11/22/2023 documented in this encounter Results * SCAN - LABS (11/22/2023) us Provider Scanning Final Result documented in this encounter Visit Diagnoses Not on filedocumented in this encounter Care Teams Industrial Engineering Director Relationship Specialty Start Date End Date Ranulfo Romo DO PCP - General Family Medicine 04/08/22 Daniela Hilario NP Nurse Practitioner Nurse Practitioner 03/26/22 documented as of this encounter
--- OUTSIDE RECORDS SUMMARY | 2024-09-24 14:06 | XMS_ITS | Encounter Summary ---
Author Organization [facility] Address [address] [place] [address] Phone Care Team Providers Care Hog Counter Name Role Phone Daniela Hilario FOOD SERVICE ASSISTANT Unavailable [phone] Ranulfo Romo DO Primary Care Provider [phone] Encounter Details Date Type Department Care Team (Late st Contact Info) Description 03/07/2024 Orders Only [facility] Scanning, [...] CDT Gender Identity Male 08/12/2022 2:14 PM TRACE CLERK Sexual Orientation Not on file documented as of this encounter Plan of Treatment Not on file documented as of this encounter Procedures Procedure Name Priority Date/Time Associated Diagnosis Comments SCAN - LABS 03/07/2024 documented in this encounter Results * SCAN - LABS (03/07/2024) us Provider Scanning Final Result documented in this encounter Visit Diagnoses Not on filedocumented in this encounter Care Teams Hog Counter Relationship Specialty Start Date End Date Ranulfo Romo DO PCP - General Family Medicine 04/08/22 Daniela Hilario NP Nurse Practitioner Nurse Practitioner 03/26/22 documented as of this encounter
--- OUTSIDE RECORDS SUMMARY | 2024-09-24 14:06 | XMS_ITS | Clinical Summary ---
Author Organization [facility] Address [address] [place] [id number] Phone Care Team Providers Care Rubber Goods Tester Name Role Phone Ranulfo Romo Primary Care Provider [phone] Allergies Active Allergy Reactions Criticality Noted Date [...] Influenza Vaccine (#1) 2024 04/24/2021 Care Teams Rubber Goods Tester Relationship Specialty Start Date End Date Ranulfo Romo DO PCP - General Family Medicine 12/30/21
--- NOTE | 2024-09-24 16:40 | WPDPFTINT ---
PFT Procedure Performed PFT Procedure Performed Spirometry with Pre/Post Bronchodilator Diffusing Cap (DLCO) Flow Vol Loop PFT Interpretation This is a pulmonary function test with pre and post-bronchodilator spirometry, and diffusing capacity. The test was performed and results interpreted in accordance with the 2019 and 2005 ATS/ERS Task Force guidelines respectively using the Global Lung Function Initiative-2012 reference equations. Patient demonstrated good effort and cooperation. Reproducibility criteria were met. The quality of the pre bronchodilator spirometry maneuver was Grade A and post bronchodilator spirometry maneuver was Grade A. Of note, patient was unable to perform plethysmography. Findings: Spirometry: There is decreased maximal expiratory airflow at all lung volumes with concave expiratory flow tracing. The contour the inspiratory flow tracing is normal. The pre bronchodilator FVC is 2.36 L, 60% predicted. The pre bronchodilator FEV1 is 0.79 L, 27% predicted. The pre bronchodilator FEV1: FVC ratio is 34%. The post bronchodilator FVC is 2.58 L, representing a 10% increase. The post bronchodilator FEV1 is 0.86 L, representing an 8% increase. The post bronchodilator FEV1: FVC ratio is 33%. Diffusing capacity: The diffusing capacity unadjusted for hemoglobin and carboxyhemoglobin is 7.3, 29% predicted. The diffusing capacity adjusted for alveolar volume is 2.17, 54% predicted. In comparison to previous pulmonary function testing on 02/20/2024 the post bronchodilator FVC is decreased from 3.15 L to 2.58 L. The post bronchodilator FEV1 is decreased from 1.12 L to 0.86 L. The diffusing capacity unadjusted for hemoglobin and carboxyhemoglobin is decreased from 9.0 to 7.3. The diffusing capacity adjusted for alveolar volume is unchanged from 2.48 to 2.17. Impression: There is a very severe obstructive abnormality. There is no significant improvement after inhaling a single dose of albuterol. The diffusing capacity unadjusted for hemoglobin and carboxyhemoglobin is severely decreased and remains moderately decreased when adjusted for alveolar volume. Clinical correlation is recommended.
== END 2024-09-24 13:11 | disposition home or self-care (01) ==
PROVIDERS: PCP Internal Medicine; Visit Provider Internal Medicine Pulmonary Disease
DX: R94.2 Abnormal results of pulmonary function studies (principal); J43.1 Panlobular emphysema
CPT/HCPCS: 94060; 94729

== ENCOUNTER 2024-11-19 18:24 | Emergency (ER) | payer MEDICARE, SELFPAY ==
--- OUTSIDE RECORDS SUMMARY | 2024-11-19 18:27 | XMS_ITS | Encounter Summary ---
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 Sexual Orientation Not on file documented as of this encounter Plan of Treatment Not on file documented as of this encounter Procedures Procedure Name Priority Date/Time Associated Diagnosis Comments SCAN - LABS 03/07/2024 documented in this encounter Results * SCAN - LABS (03/07/2024) us Provider Scanning Final Result documented in this encounter Visit Diagnoses Not on filedocumented in this encounter Care Teams Counterintelligence Agent Relationship Specialty Start Date End Date Ranulfo Romo DO PCP - General Family Medicine 04/08/22 Daniela Hilario NP Nurse Practitioner Nurse Practitioner 03/26/22 documented as of this encounter
--- OUTSIDE RECORDS SUMMARY | 2024-11-19 18:27 | XMS_ITS | Encounter Summary ---
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
--- OUTSIDE RECORDS SUMMARY | 2024-11-19 18:27 | XMS_ITS | Clinical Summary ---
Author Organization [facility] [address] Address [address] [place] [address] Care Team Providers [employer] Name Role Phone Daniela Hilario CLOTHING DESIGNER Unavailable [phone] Ranulfo Romo DO Primary Care Provider [phone] Allergies Active Allergy Reactions Criticality Noted Date [...] (2.5 mg total) by nebulization as needed 05/05/20 21 Active albuterol HFA (PROVENTIL HFA,VENTOLIN HFA,PROAIR HFA) 90 mcg/actuation inhaler INHALE 2 PUFFS EVERY 4 HOURS BY INHALATION ROUTE NEEDED FOR 30 DAYS. 04/06/20 21 Active carvediloL (COREG) 25 mg tablet Take 1 tablet (25 mg total) by mouth 2 (two) times a day 04/09/20 21 Active doxepin (SINEquan) 25 mg capsule Take 1 capsule (25 mg total) by mouth nightly as needed 03/10/20 21 Active traMADoL (ULTRAM) 50 mg tablet Take 1 tablet (50 mg total) by mouth every 6 (six) hours as needed 04/08/20 21 Active dupilumab (DUPIXENT) syringe Inject 2 mL (300 mg total) under the skin every 14 (fourteen) days Active gabapentin (NEURONTIN) 300 mg capsule Take 1 capsule (300 mg total) by mouth daily as needed Active acetaminophen 500 mg capsule Take 2 capsules (1,000 mg total) by mouth every 6 (six) hours 30 tablet 06/23/20 Active tamsulosin (FLOMAX) 0.4 mg extended release capsule Take 2 capsules (0.8 mg total) by mouth daily with dinner 06/23/20 Active oxygenIndicati ons:Dyspnea Administer 2 L/min into each nostril as needed (hypoxia) 06/24/20 Active furosemide (LASIX) 40 mg tabletIndicati ons:per md advisement Take 1 tablet (40 mg total) by mouth daily Active potassium chloride ER (KLOR-CON) 10 mEq CR tabletIndicati ons:hypokalemi a Take 1 tablet/capsule (10 mEq total) by mouth daily Active finasteride (PROSCAR) 5 mg tablet Take 1 tablet (5 mg total) by mouth 2 (two) times a day 02/14/20 22 Active triamcinolone (KENALOG) 0.1 % ointment Apply 1 Application topically as needed Active guaiFENesin ER (MUCINEX) 600 mg 12 hr tablet Take 2 tablets (1,200 mg total) by mouth 2 (two) times a day Active pantoprazole DR (PROTONIX) 40 mg EC tablet TAKE 1 TABLET BY MOUTH DAILY 100 tablet 2 03/12/20 24 Active atorvastatin (LIPITOR) 80 mg tablet Take 1 tablet (80 mg total) by mouth nightly 90 tablet 3 05/01/20 24 Active cilostazoL (PLETAL) 50 mg tablet TAKE 1 TABLET BY MOUTH TWICE DAILY 200 tablet 3 05/28/20 24 Active amLODIPine (NORVASC) 10 mg tablet Take 1 tablet (10 mg total) by mouth nightly 90 tablet 3 06/04/20 24 Active Stiolto Respimat 2.5-2.5 mcg/actuation inhaler Inhale 2 puffs daily 06/07/20 24 Active benzonatate (TESSALON) 100 mg capsule Take 1 capsule (100 mg total) by mouth 3 (three) times a day 08/13/20 Active magnesium oxide 500 mg capsule Take 500 mg by mouth daily Active multivitamin-i reny-folic acid 18-400 mg-mcg tabletIndicati ons:Vitamin Deficiency Prevention Take 1 tablet by mouth daily Active cetirizine 10 mg capsule Take 10 mg by mouth nightly as needed Active azithromycin (ZITHROMAX) 500 mg tablet Take 1 tablet (500 mg total) by mouth daily 30 tablet 2 09/18/19 25 025 Active rifabutin (MYCOBUTIN) 150 mg capsule Take 2 capsules (300 mg total) by mouth daily 60 capsule 2 09/18/19 25 025 Active ethambutoL (MYAMBUTOL) 400 mg tabletIndicati ons:Mycobacter iosis Take 3 tablets (1,200 mg total) by mouth daily 90 tablet 2 09/19/19 25 025 Active clopidogreL (PLAVIX) 75 mg tablet TAKE 1 TABLET BY MOUTH DAILY 100 tablet 2 10/25/19 25 Active clopidogreL (PLAVIX) 75 mg tablet TAKE 1 TABLET BY MOUTH DAILY 100 tablet 2 02/10/20 24 025 Discontinued Active Problems Problem Noted Date Diagnosed Date 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 08/13/2024 Angina pectoris, unstable 01/11/2024 Abnormal stress test 01/11/2024 Pain in both lower extremities 12/30/2021 Overview (12/30/2021): Added automatically from request for surgery [id number] ALFREDO (acute kidney injury) 06/16/2021 Assessment & [...] kidney disease) stage 4, GFR 15-29 ml/min 06/11/2021 Assessment & Plan (06/19/2021 8:25 AM CDT): At time of admission creat baseline 2.5 - renal following - Avoid other nephrotoxic medications - Monitor labs Empyema 06/10/2021 Assessment & Plan (07/10/2021 8:59 PM MANAGER ONLINE): - Currently receiving Ceftriaxone 2 g IV [...] AVB, Symptomatic Bradycardia. DOI 05/02/2019-Dr Zenia Good ([place]). [facility] remote. Assessment & Plan (06/11/2021 8:06 [...] Encounters Date Type Department Care Team Description 11/12/2024 2:25 PM CDT - 11/12/2024 11:59 PM CDT Hospital Encounter [address] [phone] Pulmonary mycobacterial infection (HCC); Bronchiectasis, uncomplicated (HCC); Other nonspecific abnormal finding of lung field Discharge Disposition: Discharge to home or self care 10/24/2024 7:45 AM MANAGER ONLINE Ancillary Procedure [facility] Cardiology [address] [place] [address] [place] [phone] Symptomatic bradycardia (Primary Dx); History of complete AV block; AV block, 2nd degree; Cardiac pacemaker in situ 10/24/2024 Orders Only [facility] Cardiology [address] [place] [address] [place] [phone] Josiah Lay MD NICM (nonischemic cardiomyopathy) (HCC) (Primary Dx); 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; Ventricular fibrillation (HCC); NSVT (nonsustained ventricular tachycardia) (HCC) 10/17/2024 10:30 AM MANAGER ONLINE - 10/17/2024 11:59 PM MANAGER ONLINE Hospital Encounter [address] [phone] Pulmonary mycobacterial infection (HCC); Bronchiectasis, uncomplicated (HCC); Other nonspecific abnormal finding of lung field Discharge Disposition: Discharge to home or self care 09/20/2024 Telephone [facility] [address] [place] [phone] FingalVicki Batista, SHASHANK 09/19/2024 Orders Only [facility] [address] [place] [phone] Vicki Hahn, SHASHANK 09/19/2024 Telephone [facility] [address] [place] [phone] Danielle Gonsalez 09/18/2024 11:41 AM MANAGER ONLINE - 09/18/2024 11:59 PM MANAGER ONLINE Hospital Encounter [address] [address] Other specified respiratory disorders; Pulmonary mycobacterial infection (HCC); Bronchiectasis, uncomplicated (HCC); Other nonspecific abnormal finding of lung field Discharge Disposition: Discharge to home or self care 09/18/2024 10:23 AM MANAGER ONLINE - 09/18/2024 11:59 PM MANAGER ONLINE Hospital Encounter [facility] ([facility]) [address] [place] [phone] Diagnosis unknown Discharge Disposition: Discharge to home or self care 09/18/2024 10:20 AM MANAGER ONLINE Office Visit [facility] [address] [place] [address] [address] [place] [address] Vicki Hahn, SHASHANK Pulmonary Mycobacterium kansasii infection (HCC) (Primary Dx); Encounter for screening examination for sexually transmitted disease; Pulmonary mycobacterial infection (HCC); Bronchiectasis, uncomplicated (HCC); Other nonspecific abnormal finding of lung field; Other specified respiratory disorders; Pseudomonas (aeruginosa) (mallei) (pseudomallei) as the cause of diseases classified elsewhere 09/17/2024 8:14 PM MANAGER ONLINE - 09/17/2024 11:59 PM MANAGER ONLINE Hospital Encounter [facility] ([facility]) [address] [place] [phone] Discharge Disposition: Discharge to home or self care 09/17/2024 8:09 PM MANAGER ONLINE - 09/17/2024 11:59 PM MANAGER ONLINE Hospital Encounter [facility] ([facility]) [address] [place] [address] Discharge Disposition: Discharge to home or self care 09/04/2024 12:31 PM MANAGER ONLINE - 09/04/2024 11:59 PM MANAGER ONLINE Hospital Encounter [facility] Emergency, Room R Discharge Disposition: Discharge to home or self care from Last 3 Months Immunizations Immunization Administration Dates Next Due Influenza, Quad, Adjuvantated, [...] Hypertension Covid-19 05/2020 hospitalization 3 days Empyema (HCC) 05/2020 AV block Jun 2020 PM inse rtion Claudication PAD (peripheral artery disease) stents in left leg CKD (chronic kidney disease) stage 3, GFR 30-59 ml/min ([facility]) Sleep apnea Asthma Carotid stenosis s/p right [...] Gender Identity Male 08/12/2022 2:14 PM MANAGER ONLINE Sexual Orientation Not on file Obstetrics History Last Filed Vital Signs Vital Sign Reading Time Taken Comments Blood Pressure 131/64 09/18/2024 10:22 AM MANAGER ONLINE Pulse 83 09/18/2024 10:22 AM MANAGER ONLINE Temperature 36.6 C (97.8 F) 09/18/2024 10:22 AM MANAGER ONLINE Respiratory Rate 24 01/27/2024 8:49 AM CDT Oxygen Saturation 91% 09/18/2024 10: 22 AM MANAGER ONLINE Inhaled Oxygen Concentration - - Weight 68.4 kg (150 lb 12.7 oz) 025 10:22 AM MANAGER ONLINE Height 172.7 cm (5' 8 ) 04/25/2024 12:5 7 PM CDT Body Mass Index 22.93 04/25/2024 12:57 PM CDT Plan of Treatment Health Maintenance Due Date Last Done Comments Colon Cancer Screening-Colonoscopy 1950 Depression Screening 1950 DTaP/Tdap/Td Vaccine (1 - Tdap) 1962 Hepatitis B Screening 1969 Zoster Vaccine (1 of 2) 2001 Pneumococcal vaccine 65+ (2 of 2 - PPSV23) 06/17/2012 04/22/2012 Abdominal Aortic Aneurysm (A AA) Screen 2016 Well Visit 65+ 2016 Covid-19 Vaccine (5 - 2023-2 5 season) 2024 08/12/2021, 11/26/2020, 11/14/2020, Additional history exists Influenza Vaccine (#1) 2024 05/04/2021, 2020 Fall Risk Assessment 01/26/2025 01/27/2024 Hepatitis C Screening Completed 09/18/2024 Medical Devices Implanted Type Area Jailkeeper Device Identifier Shelf Expiration Date Model / Serial / Lot Pacemaker Pacemaker Chest Procedures Procedure Name Priority Date/Time Associated Diagnosis Comments MYCOBACTERIOLOGY AFB CULTURE AND ACID-FAST STAIN Routine 11/12/2024 2:10 PM CDT Pulmonary mycobacterial infection (HCC) Bronchiectasis, uncomplicated (HCC) Other nonspecific abnormal finding of lung field DEVICE CHECK - REMOTE Routine 10/24/2024 7:13 AM MANAGER ONLINE History of complete AV block MYCOBACTERIOLOGY AFB CULTURE AND ACID-FAST STAIN Routine 10/17/2024 10:30 AM MANAGER ONLINE Pulmonary mycobacterial infection (HCC) Bronchiectasis, uncomplicated (HCC) Other nonspecific abnormal finding of lung field COCCIDIOIDES ANTIBODIES Routine 09/18/19 11:41 AM MANAGER ONLINE EGFR Routine 09/18/2024 11:41 AM MANAGER ONLINE COMPREHENSIVE METABOLIC PANEL Routine 09/18/2024 11:41 AM MANAGER ONLINE DIFFERENTIAL AUTO Routine 09/18/2024 11: 41 AM MANAGER ONLINE Pulmonary mycobacterial infection (HCC) CBC WITH AUTO DIFFERENTIAL Routine 09/18/2024 11:41 AM MANAGER ONLINE Pulmonary mycobacterial infection (HCC) CYSTATIN C Routine 09/18/2024 11:41 AM MANAGER ONLINE Pulmonary mycobacterial infection (HCC) Bronchiectasis, uncomplicated (HCC) Other nonspecific abnormal finding of lung field Other specified respiratory disorders COCCIDIOIDES ANTIBODY SCREEN W/REFLEX Routine 09/18/2024 11:41 AM MANAGER ONLINE Pulmonary mycobacterial infection (HCC) Bronchiectasis, uncomplicated (HCC) Other nonspecific abnormal finding of lung field Other specified respiratory disorders HEPATITIS C ANTIBODY Routine 09/18/2024 11:41 AM MANAGER ONLINE Other specified respiratory disorders HIV 1/2 ANTIBODY PLUS P24 ANTIGEN Routine 09/18/2024 11:41 AM MANAGER ONLINE Other specified respiratory disorders CT BODY OUTSIDE CONSULT Routine 09/18/19 10:24 AM MANAGER ONLINE Diagnosis unknown CT BODY OUTSIDE REFERENCE Routine 09/17/2024 8:[address] BODY OUTSIDE REFERENCE Routine 09/17/2024 8:09 PM MANAGER ONLINE from Last 3 Months Results * DEVICE CHECK - REMOTE (10/24/2024 7:13 AM MANAGER ONLINE) Anatomical Region Laterality Modality Other Narrative 10/25/2024 12:11 PM MANAGER ONLINE [employer] [place] Dual Pacemaker. Dx; Second Degree AVB, Symptomatic Bradycardia. DOI 05/02/2019-Dr Zenia Good ([place]). [facility] remote. Routine DDDR Pacemaker Remote. Transmission attached. Battery status: 2.94 V, 3.2 years remaining battery life to HERMELINDO. Stable lead impedances, pacing and sensing thresholds. Presenting rhythm: A sensed/V paced AP-21.5%, COATING MANAGER-99.8% No AT/AF episodes noted. No Ventricular high rate episodes detected. Medications: Plavix 75 mg, amlodipine 10 mg, carvedilol 25 mg See scanned report. Office pacemaker follow up: [employer] message sent to patient to schedule annual in office device check [facility] remote f/u 01/30/25. Kobe Soto RN us Josiah Lay MD [facility] PROCEDURES F inal Result * Coccidioides antibody screen w/reflex Blood (09/18/2024 11:41 AM MANAGER ONLINE) Coccidioides ab screen, ser Reactive Negative [facility] Comment: Confirmatory testing by complement fixation and immunodiffusion has been ordered. ADDITIONAL INFORMATION This test has been modified from the ekg manager's instructions. Its performance characteristics were determined by [facility] in a manner consistent with CLIA requirements. This test has not been cleared or approved by the U.S. Food and Drug Administration. Test Performed by: [place] [address] Client Services Administrator: Moy Hale Ph.D.; CLIA# [id number] Blood 09/18/2024 11:4 1 AM MANAGER ONLINE 09/18/2024 4:09 PM MANAGER ONLINE us Vicki Hahn NP LAB MICROBIOLOGY - GENERA L ORDERABLES Final Result [facility] Department of Laboratories [place], [place] [id number] [place] ref Lab * (ABNORMAL) eGFR (09/18/2024 11:41 AM MANAGER ONLINE) eGFR 47(L) >=60 mL/min/1. 73 m2 Comment: Interpretive Data Reference Interval Normal >/= 90 mL/min/1.73m2 Mildly decreased* 60 - 89 mL/min/1.73m2 Mildly to moderately decreased 45 - 59 mL/min/1.73m2 Moderately to severely decreased 30 - 44 mL/min/1.73m2 Severely decreased 15 - 29 mL/min/1.73m2 Kidney Failure < 15 mL/min/1.73m2 *Relative to young adult level Estimated glomerular filtration rate is determined by the 2020 CKD-EPI equation recommended by the National Kidney Foundation (A Unifying Approach to GFR Estimation: Recommendations of the NKF-ASK Task Force on Reassessing the Inclusion of Race in Diagnosing Kidney Disease, JASN 202). The CKD-EPI equation should not be used for patients with unstable renal function and has not been validated in children and those over 70. Current interpretive data was last reviewed 2021. Blood 09/18/2024 11:4 1 AM MANAGER ONLINE 09/18/2024 4:38 PM MANAGER ONLINE us Vicki Hahn NP LAB BLOOD ORDERABLES Tyra bowling Result [facility] Department [place] [address] * (ABNORMAL) Differential, auto (09/18/2024 11:41 AM MANAGER ONLINE) Neutrophil abs 6.6(H) 1.5 - 6.5 K/cumm Imm gran abs 0.0 0.0 - 0.1 K/cumm [facility] Lymphocyte abs 0.8 0.8 - 3.3 K/cumm [facility] Monocyte abs 0.5 0.2 - 0.8 K/cumm [facility] Eosinophil abs 0.4 0.0 - 0.5 K/cumm [facility] Basophil abs 0.0 0.0 - 0.1 K/cumm [facility] Neutrophil pct 79.2 % [facility] Comment: Interpretive Data Percent cell count reference ranges are not reported, since discordance with absolute values may lead to misinterpretation of CBC data. Current Interpretive Data was last revised on 2017. Imm gran pct 0.4 % [facility] Comment: Interpretive Data Percent cell count reference ranges are not reported, since discordance with absolute values may lead to misinterpretation of CBC data. Current Interpretive Data was last revised on 2017. Lymphocyte pct 9.0 % [facility] Comment: Interpretive Data Percent cell count reference ranges are not reported, since discordance with absolute values may lead to misinterpretation of CBC data. Current Interpretive Data was last revised on 2017. Monocyte pct 5.6 % [facility] Comment: Interpretive Data Percent cell count reference ranges are not reported, since discordance with absolute values may lead to misinterpretation of CBC data. Current Interpretive Data was last revised on 2017. Eosinophil pct 5.3 % [facility] Comment: Interpretive Data Percent cell count reference ranges are not reported, since discordance with absolute values may lead to misinterpretation of CBC data. Current Interpretive Data was last revised on 2017. Basophil pct 0.5 % [facility] Comment: Interpretive Data Percent cell count reference ranges are not reported, since discordance with absolute values may lead to misinterpretation of CBC data. Current Interpretive Data was last revised on 2017. Blood 09/18/2024 11:4 1 AM MANAGER ONLINE 09/18/2024 3:56 PM MANAGER ONLINE Vicki Hahn NP LAB BLOOD ORDERABLES Tyra l Result Performing Organization Address [facility] Co de Phone Number [facility] Department [place] [address] * HIV 1/2 Antibody plus p24 Antigen Blood (09/18/2024 11:41 AM MANAGER ONLINE) HIV 1/2 ab + p24 ag Nonreactive Nonreactive Comment:Nonreactive for HIV- 1 antigen and HIV-1/HIV-2 antibodies. No laboratory evidence of HIV infection. If acute HIV infection is suspected, consider testing for HIV-1 RNA. Current interpretive data was last revised on 22. Blood 09/18/2024 11:4 1 AM MANAGER ONLINE 09/18/2024 3:56 PM MANAGER ONLINE Vicki Hahn NP LAB MICROBIOLOGY - GENERA L ORDERABLES Final Result Performing Organization Address City/[facility]/ZIP Co de Phone Number [facility] Department [place] [address] * (ABNORMAL) Cystatin C (09/18/2024 11:41 AM MANAGER ONLINE) Pathologist [facility] Cystatin C 1.78(H) 0.60 - 1.20 mg/L Comment: Interpretive Data Cystatin C concentrations vary widely in the first month of life, particularly in pre-term infants. Concentrations gradually diminish to adult levels by 1 year of life. Concentrations tend to rise with diminishing renal function in individuals greater than 60 years of age. Current Interpretive Data was last revised on 2020. Testing performed by: [facility], [place]., [address] Blood 09/18/2024 11:4 1 AM MANAGER ONLINE 09/18/2024 6:36 PM MANAGER ONLINE us Vicki Hahn NP LAB BLOOD ORDERABLES Tyra bowling Result [facility] Department [place] [address] * (ABNORMAL) CBC with auto differential (09/18/2024 11:41 AM MANAGER ONLINE) Pathologist [facility] WBC 8.4 3.8 - 9.9 K/cumm Hgb 9.3(L) 13.0 - 17.5 g/dL [facility] Hct 32.6(L) 38.9 - 50.3 % [facility] Plt 120(L) 150 - 400 K/cumm [facility] MPV 10.6 9.1 - 12.3 fL [facility] RBC 3.86(L) 4.30 - 5.80 M/cumm [facility] MCV 84.5 81.3 - 96.4 fL [facility] MCH 24.1(L) 27.1 - 33.3 pg [facility] MCHC 28.5(L) 32.3 - 35.7 g/dL [facility] RDW CV 16.4(H) 11.1 - 14.9 % [facility] RDW SD 50.5(H) 35.7 - 48.1 fL [facility] NRBC abs 0.00 0.00 - 0.01 K/cumm [facility] Blood 09/18/2024 11:4 1 AM MANAGER ONLINE 09/18/2024 3:56 PM MANAGER ONLINE Vicki Hahn NP LAB BLOOD ORDERABLES Tyra l Result Performing Organization Address [facility] Co de Phone Number [facility] [place] [address] * Hepatitis C antibody Blood (09/18/2024 11:41 AM MANAGER ONLINE) Hep C Ab Nonreactive Nonreactive Comment:Antibodies to HCV no t detected. Does NOT exclude the possibility of recent exposure to HCV. Current interpretive data was last revised on 22 Blood 09/18/2024 11:4 1 AM MANAGER ONLINE 09/18/2024 3:56 PM MANAGER ONLINE Vicki Hahn NP LAB MICROBIOLOGY - GENERA L ORDERABLES Final Result Performing Organization Address [facility] [place] [address] * Coccidioides antibodies (09/18/2024 11:41 AM MANAGER ONLINE) Coccidioides ab comp fix Negative Negative [facility] Coccidioides IgG ImmDiff Negative Negative [facility] Coccidioides IgM ImmDiff Negative Negative [facility] Comment: The EIA may be reactive prior to complement fixation and immunodiffusion (CompF/ImmDiff), or may be falsely-reactive. Repeat testing by CompF/ImmDiff in 2-3 weeks if clinically indicated. Test Performed by: [address] [address] Client Services Administrator: Moy Hale Ph.D.; CLIA# [id number] Blood 09/18/2024 11:4 1 AM MANAGER ONLINE 09/18/2024 4:09 PM MANAGER ONLINE Vicki Hahn CLOTHING DESIGNER LAB BLOOD ORDERABLES Tyra bowling Result [facility] Department [place] [address] [place] ref Lab * (ABNORMAL) Comprehensive metabolic panel (09/18/2024 11:41 AM MANAGER ONLINE) Sodium 145 135 - 145 mmol/L Potassium, pl 4.9 3.3 - 4.9 mmol/L [facility] Chloride 104 97 - 110 mmol/L [facility] CO2 33(H) 22 - 32 mmol/L [facility] Anion gap 8 2 - 15 mmol/L [facility] BUN 22 6 - 25 mg/dL [facility] Creatinine 1.56(H) 0.80 - 1.30 mg/dL [facility] Glucose 67(L) 70 - 199 mg/dL [facility] Comment: Interpretive Data Fasting glucose >/= 126 mg/dl is diagnostic for diabetes. Fasting is defined as no caloric intake [...] classification and Diagnosis of Diabetes Diabetes Care 202; 46: S19-S40. Current interpretive data was last revised 2022. Calcium 8.7 8.5 - 10.3 mg/dL [facility] Bilirubin, total 0.3 0.1 - 1.2 mg/dL [facility] Protein, pl 7.1 6.5 - 8.5 g/dL [facility] Albumin 3.6 3.5 - 5.0 g/dL [facility] Alk phos 126 40 - 130 Units/L [facility] ALT 22 7 - 55 Units/L [facility] AST 26 10 - 50 Units/L [facility] Blood 09/18/2024 11:4 1 AM MANAGER ONLINE 09/18/2024 4:18 PM MANAGER ONLINE Vicki Hahn CLOTHING DESIGNER LAB BLOOD ORDERABLES Tyra bowling Result [facility] Department [place] [address] * CT Body Outside Consult (09/18/2024 10:24 AM MANAGER ONLINE) Anatomical Region Laterality Modality Body N/A Computed Tomogra phy 09/18/2024 12:1 7 PM MANAGER ONLINE Impressions 09/18/2024 12:17 PM MANAGER ONLINE Increased centrilobular nodules, bronchial wall thickening and [...] images may or may not represent the [place] source data set and thus may contain changes that may lower the accuracy of this second-opinion interpretation. Electronically signed by: Wilman Perez MD, PHD Narrative 09/18/2024 12:17 PM MANAGER ONLINE EXAMINATION: RADIOLOGY CONSULTATION ON OUTSIDE IMAGING STUDY STUDY INITIALLY PERFORMED: 07/18/[address] [facility]. TYPE OF STUDY: Multiple CT [...] seen. No suspicious lytic or blastic lesion. Procedure Note Wilman Perez MD PhD - 09/18/2024 EXAMINATION: RADIOLOGY CONSULTATION ON OUTSIDE IMAGING STUDY STUDY INITIALLY PERFORMED: 07/18/[address] [facility]. TYPE OF STUDY: Multiple CT [...] images may or may not represent the [place] source data set and thus may contain changes that may lower the accuracy of this second-opinion interpretation. Electronically signed by: Wilman Perez MD, PHD us Ronn Vitale MD IMG CT PROCEDURES Final Resu lt * CT Body Outside Reference (09/17/2024 8:14 PM MANAGER ONLINE) Impressions [id number] - 09/17/2024 8:14 PM MANAGER ONLINE These images are for Reference purposes only and have not been reviewed by [facility] Radiology. There will be no report generated by a [facility]iologist. Narrative [facility] - 09/17/2024 8:14 PM MANAGER ONLINE EXAMINATION: Images For Reference Purposes Only Ronn Vitale MD IMG CT PROCEDURES Final Resu lt Performing Organization Address [facility] Co de Phone Number [facility] * CT Body Outside Reference (09/17/2024 8:09 PM MANAGER ONLINE) Impressions [facility] - 09/17/2024 8:09 PM MANAGER ONLINE These images are for Reference purposes only and have not been reviewed by [facility]. There will be no report generated by a [facility] Radiologist. Narrative [facility] - 09/17/2024 8:09 PM MANAGER ONLINE EXAMINATION: Images For Reference Purposes Only Ronn Vitale MD IMG CT PROCEDURES Final Resu lt Performing Organization Address [facility] Co de Phone Number [facility]_P[facility] from Last 3 Months Insurance [facility] ANDREA MARTIN [address] MEDICARE ADVANTAGE [facility] MEDICARE ADVANTAGE [facility] CHOICE PLUS MEDICARE [facility] MEDICARE ADVANTAGE Advance Directives For more information, please contact: [phone] * Full Code (Latest Code Status on File) Date Activated Date Inactivated Comments 06/12/2021 8:06 PM 06/23/2021 5:12 PM * Full Code Date Activated Date Inactivated Comments 06/10/2021 9:01 PM 06/12/2021 8:06 PM Care Teams Men'S Swim Coach Relationship Specialty Start Date End Date Ranulfo Romo DO PCP - General Family Medicine 04/08/22 Daniela Hilario NP Nurse Practitioner Nurse Practitioner 03/26/22
--- OUTSIDE RECORDS SUMMARY | 2024-11-19 18:27 | XMS_ITS | Referral Summary ---
Author Organization [facility] [address] Address [address] [place] [address] Care Team Providers Care Cadastral Surveyor Name Role Phone Daniela Hilario DRY GOODS CLERK Unavailable [phone] Ranulfo Romo DO Primary Care Provider [phone] Encounters Date Type Department Care Team Description 11/12/2024 2:25 PM CDT - 11/12/2024 11:59 PM CDT Hospital Encounter [address] [phone] Pulmonary mycobacterial infection (HCC); Bronchiectasis, uncomplicated (HCC); Other nonspecific abnormal finding of lung field Discharge Disposition: Discharge to home or self care 10/24/2024 Orders Only [facility] Cardiology [address] [place] [phone] Josiah Lay MD NICM (nonischemic cardiomyopathy) (HCC) (Primary Dx); 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; Ventricular fibrillation (HCC); NSVT (nonsustained ventricular tachycardia) (HCC) 10/24/2024 7:45 AM SUPERVISOR PIPELINES Ancillary Procedure [facility] Cardiology [address] [place] [phone] Symptomatic bradycardia (Primary Dx); History of complete AV block; AV block, 2nd degree; Cardiac pacemaker in situ 10/17/2024 10:30 AM SUPERVISOR PIPELINES - 10/17/2024 11:59 PM SUPERVISOR PIPELINES Hospital Encounter [address] [phone] Pulmonary mycobacterial infection (HCC); Bronchiectasis, uncomplicated (HCC); Other nonspecific abnormal finding of lung field Discharge Disposition: Discharge to home or self care 09/20/2024 Telephone [facility] Infectious Diseases [address] [phone] Vicki Hahn, SHASHANK 09/19/2024 Orders Only [facility] Infectious Diseases [address] [phone] Vicki Hahn, SHASHANK 09/19/2024 Telephone [facility] Infectious Diseases [address] [place] [phone] Danielle Gonsalez 09/18/2024 11:41 AM SUPERVISOR PIPELINES - 09/18/2024 11:59 PM SUPERVISOR PIPELINES Hospital Encounter [address] [address] Other specified respiratory disorders; Pulmonary mycobacterial infection (HCC); Bronchiectasis, uncomplicated (HCC); Other nonspecific abnormal finding of lung field Discharge Disposition: Discharge to home or self care 09/18/2024 10:23 AM SUPERVISOR PIPELINES - 09/18/2024 11:59 PM SUPERVISOR PIPELINES Hospital Encounter [facility] [address] [place] [phone] Diagnosis unknown Discharge Disposition: Discharge to home or self care 09/18/2024 10:20 AM SUPERVISOR PIPELINES Office Visit [facility] Infectious Diseases [address] [place] [phone] Vicki Hahn, SHASHANK Pulmonary Mycobacterium kansasii infection (HCC) (Primary Dx); Encounter for screening examination for sexually transmitted disease; Pulmonary mycobacterial infection (HCC); Bronchiectasis, uncomplicated (HCC); Other nonspecific abnormal finding of lung field; Other specified respiratory disorders; Pseudomonas (aeruginosa) (mallei) (pseudomallei) as the cause of diseases classified elsewhere 09/17/2024 8:14 PM SUPERVISOR PIPELINES - 09/17/2024 11:59 PM SUPERVISOR PIPELINES Hospital Encounter [facility] Radiology [facility] [address] [place] [phone] Discharge Disposition: Discharge to home or self care 09/17/2024 8:09 PM SUPERVISOR PIPELINES - 09/17/2024 11:59 PM SUPERVISOR PIPELINES Hospital Encounter [facility] Rad[facility] ([facility]) [address] [place], [place] [phone] Discharge Disposition: Discharge to home or self care 09/04/2024 12:31 PM SUPERVISOR PIPELINES - 09/04/2024 11:59 PM SUPERVISOR PIPELINES Hospital Encounter [facility] Emergency, Room R Discharge Disposition: Discharge to home or self care from Last 3 Months Allergies Active Allergy [...] every 6 (six) hours 30 tablet 06/23/20 21 Active tamsulosin (FLOMAX) 0.4 mg extended release capsule Take 2 capsules (0.8 mg total) by mouth daily with dinner 06/23/20 21 Active oxygenIndicati ons:Dyspnea Administer 2 L/min into each nostril as needed (hypoxia) 06/24/20 21 Active furosemide (LASIX) 40 mg tabletIndicati ons:per [...] mouth 3 (three) times a day 08/13/20 24 Active magnesium oxide 500 mg capsule Take [...] (12/30/2021): Added automatically from request for surgery [id number] ALFREDO (acute kidney injury) 06/16/2021 Assessment & [...] 06/10/2021 Assessment & Plan (07/10/2021 8:59 PM SUPERVISOR PIPELINES): - Currently receiving Ceftriaxone 2 g IV [...] 05/02/2019-Dr Zenia Good ([place]). Carelink remote. Assessment & Plan (06/11/2021 8:06 [...] on hold - monitor on tele Immunizations Immunization Administration Dates Next Due Influenza, [...] CDT Gender Identity Male 08/12/2022 2:14 PM SUPERVISOR PIPELINES Sexual Orientation Not on file Last Filed Vital Signs Vital Sign Reading Time Taken Comments Blood Pressure 131/64 09/18/2024 10:22 AM SUPERVISOR PIPELINES Pulse 83 09/18/2024 10:22 AM SUPERVISOR PIPELINES Temperature 36.6 C (97.8 F) 09/18/2024 10:22 AM SUPERVISOR PIPELINES Respiratory Rate 24 01/27/2024 8:49 AM CDT Oxygen Saturation 91% 09/18/2024 10: 22 AM SUPERVISOR PIPELINES Inhaled Oxygen Concentration - - Weight 68.4 kg (150 lb 12.7 oz) 025 10:22 AM SUPERVISOR PIPELINES Height 172.7 cm (5' 8 ) 04/25/2024 12:5 7 PM CDT Body Mass Index 22.93 04/25/2024 12:57 PM CDT Plan of Treatment Not on file Medical Devices Implanted Type Area Hot Mill Roller Device Identifier Shelf Expiration Date Model / Serial / Lot Pacemaker Pacemaker Chest Procedures Procedure Name Priority Date/Time Associated Diagnosis Comments MYCOBACTERIOLOGY AFB CULTURE AND ACID-FAST STAIN Routine 11/12/2024 2:10 PM CDT Pulmonary mycobacterial infection (HCC) Bronchiectasis, uncomplicated (HCC) Other nonspecific abnormal finding of lung field DEVICE CHECK - REMOTE Routine 10/24/2024 7:13 AM SUPERVISOR PIPELINES History of complete AV block MYCOBACTERIOLOGY AFB CULTURE AND ACID-FAST STAIN Routine 10/17/2024 10:30 AM SUPERVISOR PIPELINES Pulmonary mycobacterial infection (HCC) Bronchiectasis, uncomplicated (HCC) Other nonspecific abnormal finding of lung field COCCIDIOIDES ANTIBODIES Routine 09/18/19 11:41 AM SUPERVISOR PIPELINES EGFR Routine 09/18/2024 11:41 AM SUPERVISOR PIPELINES COMPREHENSIVE METABOLIC PANEL Routine 09/18/2024 11:41 AM SUPERVISOR PIPELINES DIFFERENTIAL AUTO Routine 09/18/2024 11: 41 AM SUPERVISOR PIPELINES Pulmonary mycobacterial infection (HCC) CBC WITH AUTO DIFFERENTIAL Routine 09/18/2024 11:41 AM SUPERVISOR PIPELINES Pulmonary mycobacterial infection (HCC) CYSTATIN C Routine 09/18/2024 11:41 AM SUPERVISOR PIPELINES Pulmonary mycobacterial infection (HCC) Bronchiectasis, uncomplicated (HCC) Other nonspecific abnormal finding of lung field Other specified respiratory disorders COCCIDIOIDES ANTIBODY SCREEN W/REFLEX Routine 09/18/2024 11:41 AM SUPERVISOR PIPELINES Pulmonary mycobacterial infection (HCC) Bronchiectasis, uncomplicated (HCC) Other nonspecific abnormal finding of lung field Other specified respiratory disorders HEPATITIS C ANTIBODY Routine 09/18/2024 11:41 AM SUPERVISOR PIPELINES Other specified respiratory disorders HIV 1/2 ANTIBODY PLUS P24 ANTIGEN Routine 09/18/2024 11:41 AM SUPERVISOR PIPELINES Other specified respiratory disorders CT BODY OUTSIDE CONSULT Routine 09/18/19 10:24 AM SUPERVISOR PIPELINES Diagnosis unknown CT BODY OUTSIDE REFERENCE Routine 09/17/2024 8:[address] BODY OUTSIDE REFERENCE Routine 09/17/2024 8:09 PM SUPERVISOR PIPELINES from Last 3 Months Results * DEVICE CHECK - REMOTE (10/24/2024 7:13 AM SUPERVISOR PIPELINES) Anatomical Region Laterality Modality Other Narrative 10/25/2024 12:11 PM SUPERVISOR PIPELINES Medtronic Silver [place] Dual Pacemaker. Dx; Second Degree AVB, Symptomatic Bradycardia. DOI 05/02/2019-Dr Zenia Good ([place]). Carelink remote. Routine DDDR Pacemaker Remote. Transmission attached. Battery status: 2.94 V, 3.2 years remaining battery life to HERMELINDO. Stable lead impedances, pacing and sensing thresholds. Presenting rhythm: A sensed/V paced AP-21.5%, CLINICAL TRIALS MANAGER-99.8% No AT/AF episodes noted. No Ventricular high rate episodes detected. Medications: Plavix 75 mg, amlodipine 10 mg, carvedilol 25 mg See scanned report. Office pacemaker follow up: [employer] message sent to patient to schedule annual in office device check CareLink remote f/u 01/30/25. Kobe Soto, MARY us Josiah Lay MD CV CARDIAC SERVICES PROCEDURES F inal Result * Coccidioides antibody screen w/reflex Blood (09/18/2024 11:41 AM SUPERVISOR PIPELINES) Pathologist [facility] Coccidioides ab screen, ser Reactive Negative [facility] Comment: Confirmatory testing by complement fixation and immunodiffusion has been ordered. ADDITIONAL INFORMATION This test has been modified from the human resources project manager's instructions. Its performance characteristics were determined by [facility] in a manner consistent with CLIA requirements. This test has not been cleared or approved by the U.S. Food and Drug Administration. Test Performed by: [facility] [place] [address] Communications Professional: Moy Hale Ph.D.; CLIA# [id number] Blood 09/18/2024 11:4 1 AM SUPERVISOR PIPELINES 09/18/2024 4:09 PM SUPERVISOR PIPELINES us Vicki Hahn NP LAB MICROBIOLOGY - GENERA L ORDERABLES Final Result [facility] Department [place] [address] [facility] * (ABNORMAL) eGFR (09/18/2024 11:41 AM SUPERVISOR PIPELINES) Pathologist [facility] eGFR 47(L) >=60 mL/min/1. 73 m2 Comment: [...] reviewed 2021. Blood 09/18/2024 11:4 1 AM SUPERVISOR PIPELINES 09/18/2024 4:38 PM SUPERVISOR PIPELINES us Vicki Hahn NP LAB BLOOD ORDERABLES Tyra bowling Result [facility] Department [place] [address] * (ABNORMAL) Differential, auto (09/18/2024 11:41 AM SUPERVISOR PIPELINES) Neutrophil abs 6.6(H) 1.5 - 6.5 K/cumm Imm gran abs 0.0 0.0 - 0.1 K/cumm [facility] Lymphocyte abs 0.8 0.8 - 3.3 K/cumm [facility] Monocyte abs 0.5 0.2 - 0.8 K/cumm [facility] Eosinophil abs 0.4 0.0 - 0.5 K/cumm [facility] Basophil abs 0.0 0.0 - 0.1 K/cumm [facility] Neutrophil pct 79.2 % [facility] Comment: Interpretive Data Percent cell count reference ranges are not reported, since discordance with absolute values may lead to misinterpretation of CBC data. Current Interpretive Data was last revised on 2017. Imm gran pct 0.4 % [facility] Comment: Interpretive Data Percent cell count reference ranges are not reported, since discordance with absolute values may lead to misinterpretation of CBC data. Current Interpretive Data was last revised on 2017. Lymphocyte pct 9.0 % [facility] Comment: Interpretive Data Percent cell count reference ranges are not reported, since discordance with absolute values may lead to misinterpretation of CBC data. Current Interpretive Data was last revised on 2017. Monocyte pct 5.6 % [facility] Comment: Interpretive Data Percent cell count reference ranges are not reported, since discordance with absolute values may lead to misinterpretation of CBC data. Current Interpretive Data was last revised on 2017. Eosinophil pct 5.3 % [facility] Comment: Interpretive Data Percent cell count reference ranges are not reported, since discordance with absolute values may lead to misinterpretation of CBC data. Current Interpretive Data was last revised on 2017. Basophil pct 0.5 % [facility] Comment: Interpretive Data Percent cell count reference ranges are not reported, since discordance with absolute values may lead to misinterpretation of CBC data. Current Interpretive Data was last revised on 2017. Blood 09/18/2024 11:4 1 AM SUPERVISOR PIPELINES 09/18/2024 3:56 PM SUPERVISOR PIPELINES Vicki Hahn DRY GOODS CLERK LAB BLOOD ORDERABLES Tyra l Result [facility] Department [place] [address] * HIV 1/2 Antibody plus p24 Antigen Blood (09/18/2024 11:41 AM SUPERVISOR PIPELINES) HIV 1/2 ab + p24 ag Nonreactive Nonreactive Comment:Nonreactive for HIV- 1 antigen and HIV-1/HIV-2 antibodies. No laboratory evidence of HIV infection. If acute HIV infection is suspected, consider testing for HIV-1 RNA. Current interpretive data was last revised on 22. Blood 09/18/2024 11:4 1 AM SUPERVISOR PIPELINES 09/18/2024 3:56 PM SUPERVISOR PIPELINES Vicki Hahn DRY GOODS CLERK LAB MICROBIOLOGY - GENERA L ORDERABLES Final Result [facility] Department [place] [address] * (ABNORMAL) Cystatin C (09/18/2024 11:41 AM SUPERVISOR PIPELINES) [facility] Cystatin C 1.78(H) 0.60 - 1.20 mg/L Comment: Interpretive Data Cystatin C concentrations vary widely in the first month of life, particularly in pre-term infants. Concentrations gradually diminish to adult levels by 1 year of life. Concentrations tend to rise with diminishing renal function in individuals greater than 60 years of age. Current Interpretive Data was last revised on 2020. Testing performed by: [facility], [place]., [address] Blood 09/18/2024 11:4 1 AM SUPERVISOR PIPELINES 09/18/2024 6:36 PM SUPERVISOR PIPELINES us Vicki Hahn NP LAB BLOOD ORDERABLES Tyra bowling Result [facility] Department [place] [address] * (ABNORMAL) CBC with auto differential (09/18/2024 11:41 AM SUPERVISOR PIPELINES) [facility] WBC 8.4 3.8 - 9.9 K/cumm Hgb 9.3(L) 13.0 - 17.5 g/dL [facility] Hct 32.6(L) 38.9 - 50.3 % [facility] Plt 120(L) 150 - 400 K/cumm [facility] MPV 10.6 9.1 - 12.3 fL [facility] RBC 3.86(L) 4.30 - 5.80 M/cumm [facility] MCV 84.5 81.3 - 96.4 fL [facility] MCH 24.1(L) 27.1 - 33.3 pg [facility] MCHC 28.5(L) 32.3 - 35.7 g/dL [facility] RDW CV 16.4(H) 11.1 - 14.9 % [facility] RDW SD 50.5(H) 35.7 - 48.1 fL [facility] NRBC abs 0.00 0.00 - 0.01 K/cumm [facility] Blood 09/18/2024 11:4 1 AM SUPERVISOR PIPELINES 09/18/2024 3:56 PM SUPERVISOR PIPELINES Vicki Hahn DRY GOODS CLERK LAB BLOOD ORDERABLES Tyra l Result Performing Organization Address City/[facility] Co de Phone Number [facility] [place] [address] * Hepatitis C antibody Blood (09/18/2024 11:41 AM SUPERVISOR PIPELINES) Hep C Ab Nonreactive Nonreactive Comment:Antibodies to HCV no t detected. Does NOT exclude the possibility of recent exposure to HCV. Current interpretive data was last revised on 22 Blood 09/18/2024 11:4 1 AM SUPERVISOR PIPELINES 09/18/2024 3:56 PM SUPERVISOR PIPELINES Vicki Hahn NP LAB MICROBIOLOGY - GENERA L ORDERABLES Final Result Performing Organization Address [facility] de Phone Number [facility] [place] [address] * Coccidioides antibodies (09/18/2024 11:41 AM SUPERVISOR PIPELINES) Coccidioides ab comp fix Negative Negative [facility] Lab Coccidioides IgG ImmDiff Negative Negative [facility] Coccidioides IgM ImmDiff Negative Negative [facility] Comment: The EIA may be reactive prior to complement fixation and immunodiffusion (CompF/ImmDiff), or may be falsely-reactive. Repeat testing by CompF/ImmDiff in 2-3 weeks if clinically indicated. Test Performed by: [facility] [address] [place] [address] Communications Professional: oMy Hale Ph.D.; CLIA# [id number] Blood 09/18/2024 11:4 1 AM SUPERVISOR PIPELINES 09/18/2024 4:09 PM SUPERVISOR PIPELINES us Vicki Hahn DRY GOODS CLERK LAB BLOOD ORDERABLES Tyra bowling Result [facility] Department [place] [address] [facility] * (ABNORMAL) Comprehensive metabolic panel (09/18/2024 11:41 AM SUPERVISOR PIPELINES) Pathologist [facility] Sodium 145 135 - 145 mmol/L Potassium, pl 4.9 3.3 - 4.9 mmol/L [facility] Chloride 104 97 - 110 mmol/L [facility] CO2 33(H) 22 - 32 mmol/L [facility] Anion gap 8 2 - 15 mmol/L [facility] BUN 22 6 - 25 mg/dL [facility] Creatinine 1.56(H) 0.80 - 1.30 mg/dL [facility] Glucose 67(L) 70 - 199 mg/dL [facility] Comment: Interpretive Data Fasting glucose >/= 126 [...] Calcium 8.7 8.5 - 10.3 mg/dL [facility] Bilirubin, total 0.3 0.1 - 1.2 mg/dL [facility] Protein, pl 7.1 6.5 - 8.5 g/dL [facility] Albumin 3.6 3.5 - 5.0 g/dL [facility] Alk phos 126 40 - 130 Units/L [facility] ALT 22 7 - 55 Units/L [facility] AST 26 10 - 50 Units/L [facility] Blood 09/18/2024 11:4 1 AM SUPERVISOR PIPELINES 09/18/2024 4:18 PM SUPERVISOR PIPELINES us Vicki Hahn NP LAB BLOOD ORDERABLES Tyra bowling Result [facility] Department [place] [address] * CT Body Outside Consult (09/18/2024 10:24 AM SUPERVISOR PIPELINES) Anatomical Region Laterality Modality Body N/A Computed Tomogra phy 09/18/2024 12:1 7 PM SUPERVISOR PIPELINES Impressions 09/18/2024 12:17 PM SUPERVISOR PIPELINES Increased centrilobular nodules, bronchial wall thickening and [...] images may or may not represent the hoopa source data set and thus may contain changes that may lower the accuracy of this second-opinion interpretation. Electronically signed by: Wilman Perez MD, PHD Narrative 09/18/2024 12:17 PM SUPERVISOR PIPELINES EXAMINATION: RADIOLOGY CONSULTATION ON OUTSIDE IMAGING STUDY STUDY INITIALLY PERFORMED: 07/18/2024 at [facility]. TYPE OF STUDY: Multiple CT [...] IMAGING STUDY STUDY INITIALLY PERFORMED: 07/18/2024 at [facility]. TYPE OF STUDY: Multiple CT [...] images may or may not represent the hoopa source data set and thus may contain changes that may lower the accuracy of this second-opinion interpretation. Electronically signed by: Wilman Perez MD, PHD us Ronn Vitale MD IMG CT PROCEDURES Final Resu lt * CT Body Outside Reference (09/17/2024 8:14 PM SUPERVISOR PIPELINES) Impressions [facility] - 09/17/2024 8:14 PM SUPERVISOR PIPELINES These images are for Reference purposes only and have not been reviewed by [facility] Radiology. There will be no report generated by a [facility] Radiologist. Narrative [facility] - 09/17/2024 8:14 PM SUPERVISOR PIPELINES EXAMINATION: Images For Reference Purposes Only Ronn Vitale MD IMG CT PROCEDURES Final Resu lt Performing Organization Address City/[facility]/ZIP Co de Phone Number [facility] * CT Body Outside Reference (09/17/2024 8:09 PM SUPERVISOR PIPELINES) Impressions [facility] - 09/17/2024 8:09 PM SUPERVISOR PIPELINES These images are for Reference purposes only and have not been reviewed by [facility] Radiology. There will be no report generated by a [facility] Radiologist. Narrative [facility] - 09/17/2024 8:09 PM SUPERVISOR PIPELINES EXAMINATION: Images For Reference Purposes Only Ronn Vitale MD IMG CT PROCEDURES Final Resu lt Performing Organization Address City/[facility]/ZIP Co de Phone Number [facility] from Last 3 Months Insurance [facility] MEDICARE [facility]AGE [facility] Address: [address] [address] [place] [address] [facility] MEDICARE AD[facility]AGE [facility] Address: [address] [address] [place] [address] [facility] CHOICE PLUS [facility] HMO/PPO Address: [address] [address] [place] [address] MEDICARE [facility] MEDICARE [facility]AGE [facility] Address: [address] [address] [place] [address] Advance Directives For more information, please contact: [phone] * Full Code (Latest Code Status on File) Date Activated Date Inactivated Comments 06/12/2021 8:06 PM 06/23/2021 5:12 PM * Full Code Date Activated Date Inactivated Comments 06/10/2021 9:01 PM 06/12/2021 8:06 PM Care Teams Cadastral Surveyor Relationship Specialty Start Date End Date Ranulfo Romo DO PCP - General Family Medicine 04/08/22 Daniela Hilario NP Nurse Practitioner Nurse Practitioner 03/26/22
--- OUTSIDE RECORDS SUMMARY | 2024-11-19 18:27 | XMS_ITS | Clinical Summary ---
Author Organization [facility] Address [address] [place] [address] Care Team Providers Care Director Software Development Name Role Phone Ranulfo Romo Primary Care Provider [phone] Josiah Lay MD Unavailable Daniela Hilario [facility]- Unavailable [phone]- [phone] Allergies No known active allergies Medications Multiple [...] problems Immunizations Name Administration Dates Next Due [facility] COVID-19 (ORIGINAL FO RMULATION, PURPLE CAP) mRNA, [...] on file Legal Sex Male 3:43 PM MOTOR ROOM CONTROLLER Gender Identity Male 10/27/2021 1:50 PM MOTOR ROOM CONTROLLER Sexual Orientation Straight 10/27/2021 1: 50 PM MOTOR ROOM CONTROLLER Last Filed Vital Signs Vital Sign Reading Time Taken Comments Blood Pressure 140/79 05/10/2022 5:15 PM CDT Pulse 76 05/10/2022 5:15 PM CDT Temperature 36.4 C (97.6 F) 05/10/2022 5:15 PM CDT Respiratory Rate 16 05/10/2022 5:15 PM CDT [...] - PCV) 2016 04/22/2012 COVID-19 Vaccine ( season) 2024 02/26/2022, 08/12/2021, 11/26/2020, Additional history exists RSV Immunization or 60+ Years (1 - 1-dose 75+ series) 2026 Meningococcal B Vaccine Aged Out No l onger eligible based on patient's age to complete this topic Meningococcal Vaccine Aged Out No steve marce eligible based on patient's age to complete this topic RSV Immunizations Under 20 Months Aged Out No longer eligible based on patient's age to complete this topic Insurance [facility] Advance Directives Documents on File Type Date Recorded Patient Steward/Stewardess Smoke Room Expl anation Power of Push Connector Assembler 11/10/2021 POA for [facility] Care Care Teams Director Software Development Relationship Specialty Start Date End Date Ranulfo Romo DO [address] [facility] [address] [place] [address] PCP - General FAMILY PRACTICE 03/30/22 Josiah Lay MD [address] [place] [address] CARDIOVASCULAR DISEASE 03/30/22 Daniela Hilario, RETAIL SERVICE REPRESENTATIVE- [address] [facility] [address] [place] [address] Nurse Practitioner Family 03/30/22
--- OUTSIDE RECORDS SUMMARY | 2024-11-19 18:27 | XMS_ITS | Clinical Summary ---
Author Organization [facility] Address [address] [place] [address] Phone Care Team Providers Care Staple Processing Machine Operator Name Role Phone Ranulfo Romo Primary Care Provider [phone] Allergies Active Allergy Reactions Criticality Noted Date [...] 72 05/13/2022 11:45 AM CDT Temperature 35.7 C (96.3 F) 05/13/2022 11:45 AM CDT Respiratory Rate - - Oxygen Saturation - - Inhaled Oxygen Concentration - - Weight 87.5 kg (193 lb) 05/13/2022 11:45 AM CDT Height 172.7 cm (5' 8 ) 05/13/2022 11:45 AM CDT Body Mass Index 29.35 05/13/2022 11:45 AM CDT Plan of Treatment Health Maintenance Due Date Last Done Comments Pneumococcal PPSV23/PCV13 65 + Years / Low and Medium Risk (1 of 4 - PCV) 2016 COVID-19 Vaccine ( - season) 2024 08/12/2021, 11/26/2020, 10/22/2020 Influenza Vaccine (#1) 2024 04/24/2021 Care Teams Staple Processing Machine Operator Relationship Specialty Start Date End Date Ranulfo Romo DO PCP - General Family Medicine 12/30/21
--- OUTSIDE RECORDS SUMMARY | 2024-11-19 18:27 | XMS_ITS | Continuity of Care Document ---
Author Organization [facility] Address [address] [place] [address] Phone Care Team Providers Care Bath Solution Maker Name Role Phone Unavailable Unavailable Unavailable Procedures Procedure Date OFFICE CONSULTATION ELECTROCARDIOGRAM, COMPLETE Advance Directives Directive Yes / No Effective Date File Name No Information Encounters Encounter Description Practice Location Reason(s) For Visit Diagnoses Date Provider Providers Copied on Encounter OFFICE CONSULTATION [facility] , [address], [place], [place], [id number], [place] tel:[phone] [facility] No Information No Information Referring Provider: Arjun Shankar O, [address], [place], [address]. tel:[phone] Family History Family Member Type Diagnosis Age At Onset No Information Payers Payer name Insurance type Covered libertarian ID Authoriza tijoanna(s) [facility] [id number] CI [id number] [place] [id number] CI [id number] Social History Type Description Quantity Date Captured Comments Sex Male Smoking Status No Information Chief Complaint And Reason For Visit No Information Reason For Referral Reason For Referral No Information History Of Present Illness Encounter Date Complaint History Of Prese nt Illness No Information Functional Status Date Functional Assessmen t No Information Instructions Date Instruction Additional Infor mation No Information Assessments Type Assessment Date No Information Patient Care Teams Name Effective Dates (start - stop) Status Members No Information
--- OUTSIDE RECORDS SUMMARY | 2024-11-19 18:27 | XMS_ITS | Patient Health Record ---
Author Organization [facility] Billing Info Address [address] [place] [address] Support Name Relationship Address Phone Meggan Hill Emergency Contact [address] [place] [address] Freddy Hill Guarantor Unknown [phone] Reason For Referral No Information Plan Of Treatment No Information Insurance Providers Payer Name Payer Address Payer Phone Subscriber Number Group Number Insured Name Patient Relationship to Insured Coverage Start Date Coverage End Date [employer] GEOVANY PINEDA [address] [address] [place], [place] [id number] Freddy Hill Self - patient is the insured 5 5 CIGNA OPEN ACCESS PLUS O POS [address] KAREN BOBO [id number] Freddy Hill Self - patient is the insured 2 0
--- OUTSIDE RECORDS SUMMARY | 2024-11-19 18:27 | XMS_ITS | Encounter Summary ---
Author Organization [facility] Care Team Providers Care Fruit Or Nut Picker Name Role Phone Ross Espinosa MD Primary Care Provider [phone] Encounter Details Date Type Department Care Team (Late st Contact Info) Description 06/06/2021 3:37 PM CDT Hospital Encounter Yamilet Faustin MD [address] [place] [address] Social History Tobacco Use Types Packs/Day Years [...] CDT Gender Identity Male 08/12/2022 2:14 PM REGULATOR INSPECTOR Sexual Orientation Not on file documented as of this encounter Functional Status documented as of this encounter Plan of Treatment Not on file documented as of this encounter Visit Diagnoses Not on filedocumented in this encounter Care Teams Fruit Or Nut Picker Relationship Specialty Start Date End Date Ross Espinosa MD [address] [place] [address] PCP - General Internal Medicine 03/24/21 06/09/21 documented as of this encounter
--- OUTSIDE RECORDS SUMMARY | 2024-11-19 18:27 | XMS_ITS | Encounter Summary ---
Author Organization [facility] Address [facility] [place] [address] Care Team Providers Care Supervisor Enrobing Name Role Phone Ranulfo Romo DO Primary Care Provider [phone] Josiah Lay MD Unavailable Daniela Hilario [facility] Unavailable + [phone] Encounter Details Date Type Department Care Team (Late st Contact Info) Description 04/05/2022 [employer] [facility] Patient Accounts [address] [place] [address] [facility] Provider Auto Pay Payment Plan Social History Tobacco Use Types Packs/Day Years Used Date Smoking Tobacco: Former Cigarettes 2 40 1 970 - 2009 Smokeless Tobacco: Never Alcohol Use Standard Drinks/Week Comments Not Currently 0 (1 standard drink = 0.6 oz pur e alcohol) Sex and Gender Information Value Date Recorded Sex Assigned at Not on file Legal Sex Male 3:43 PM TRANSPLANT REGISTERED NURSE Gender Identity Male 10/27/2021 1:50 PM TRANSPLANT REGISTERED NURSE Sexual Orientation Straight 10/27/2021 1: 50 PM TRANSPLANT REGISTERED NURSE documented as of this encounter Plan of Treatment Not on file documented as of this encounter Visit Diagnoses Not on filedocumented in this encounter Care Teams Supervisor Enrobing Relationship Specialty Start Date End Date Ranulfo Romo DO [address] [facility] [address] [place] [address] [place] [address] PCP - General FAMILY PRACTICE 03/30/22 Josiah Lay MD [address] [place] [address] CARDIOVASCULAR DISEASE 03/30/22 Daniela Hilario, POCKET CUTTER- [facility] [place] [address] [place] [address] Nurse Practitioner Family 03/30/22 documented as of this encounter
--- OUTSIDE RECORDS SUMMARY | 2024-11-19 18:27 | XMS_ITS | Encounter Summary ---
Author Organization [facility] Address [address] [place] [address] Phone Care Team Providers Care Cartridge Loading Operator Name Role Phone Daniela Hilario H[facility] Unavailable [phone] Ranulfo Romo DO Primary Care Provider [phone] Encounter Details Date Type Department Care Team [...] CDT Gender Identity Male 08/12/2022 2:14 PM SPECIFICATIONS CHECKER Sexual Orientation Not on file documented as of this encounter Plan of Treatment Not on file documented as of this encounter Procedures Procedure Name Priority Date/Time Associated Diagnosis Comments SCAN - LABS 02/17/2024 documented in this encounter Results * SCAN - LABS (02/17/2024) us Provider Scanning Final Result documented in this encounter Visit Diagnoses Not on filedocumented in this encounter Care Teams Cartridge Loading Operator Relationship Specialty Start Date End Date Ranulfo Romo DO PCP - General Family Medicine 04/08/22 Daniela Hilario NP Nurse Practitioner Nurse Practitioner 03/26/22 documented as of this encounter
--- OUTSIDE RECORDS SUMMARY | 2024-11-19 18:28 | XMS_ITS | Continuity of Care Document ---
Author Organization [facility] Address [address] [place] [address] [place] [address] Phone Care Team Providers Care Textile Coating Machine Operator Name Role Phone Unavailable Unavailable Unavailable Procedures Procedure Date OFFICE CONSULTATION ELECTROCARDIOGRAM, COMPLETE Advance Directives Directive Yes / No Effective Date File Name No Information Encounters Encounter Description Practice Location Reason(s) For Visit Diagnoses Date Provider Providers Copied on Encounter OFFICE CONSULTATION [facility] , [address], [place], [place], [id number], [place] tel:[phone] [facility] No Information No Information Referring Provider: Arjun Shankar O, [address], [place], [address]. tel:[phone] Family History Family Member Type Diagnosis Age At Onset No Information Payers Payer name Insurance type Covered republican ID Authoriza tijoanna(s) [facility] [id number] CI [id number] [place] [id number] CI [id number] Social History Type Description Quantity Date Captured [...]
--- NOTE | 2024-11-19 18:33 | ED_ITS ---
HPI - Skin/Abscess/Foreign Bdy General Chief complaint: Skin/Abscess/Foreign Body Stated complaint: bump back of neck Time Seen by Provider: 11/19/24 18:34 Source: patient, RN notes reviewed and old records reviewed Mode of arrival: ambulatory Limitations: no limitations History of Present Illness HPI narrative: 74-year-old male presents to the [facility] with concerns for a lump on the back of his neck. Areas firm, raised. No fluctuance, no signs of cellulitis. Patient states that he noticed it on Tuesday Related Data Home Medications ?Medication ?Instructions ?Recorded ?Confirmed ?Last Taken ?Type acetaminophen 500 mg tablet 1,000 mg PO Q6H PRN Mild Pain 06/02/21 11/06/24 Unknown History (Scale Score 1-4) pantoprazole 40 mg tablet,delayed 40 mg PO DAILY 01/11/22 11/06/24 10/14/23 History release doxepin 25 mg capsule 25 mg PO QHS PRN Sleep 05/15/22 11/06/24 05/14/22 History tamsulosin 0.4 mg capsule 0.8 mg PO HS 01/24/23 11/06/24 10/14/23 History clopidogrel 75 mg tablet 75 mg PO DAILY 07/21/23 11/06/24 10/14/23 History amlodipine 10 mg tablet 10 mg PO HS 02/02/24 11/06/24 Unknown History finasteride 5 mg tablet 5 mg PO DAILY 04/30/24 11/06/24 Unknown History albuterol sulfate 90 mcg/actuation 2 puff inhalation Q6H PRN 09/04/24 11/06/24 Unknown History aerosol inhaler shortness of breath or wheezing cetirizine 10 mg capsule (Zyrtec) 10 mg PO HS PRN allergy symptoms 09/04/24 11/06/24 Unknown History multivitamin-ferrous 1 tablet PO DAILY 09/04/24 11/06/24 Unknown History fumarate-folic acid 18 mg-400 mcg tablet (Centrum) ethambutol 100 mg tablet 400 mg PO DAILY 09/20/24 11/06/24 Unknown History rifabutin 150 mg capsule 150 mg PO DAILY 09/20/24 11/06/24 Unknown History Allergies Allergy/AdvReac Type Severity Reaction Status Date / Time oxycodone AdvReac Severe severe Verified 11/19/24 18:32 constipation doxycycline AdvReac Unknown Nausea and Verified 11/19/24 18:32 Vomiting Review of Systems 2 Review of Systems: All systems reviewed & are unremarkable except as noted in HPI and below Constitutional: Constitutional: Reports no additional constitutional complaints ENT: Reports system reviewed and no additional complaints, except as documented Cardiovascular: Cardiovascular: Reports no additional cardiovascular complaints, Denies chest pain and Denies dyspnea Respiratory: Respiratory: Reports no additional respiratory complaints, Denies chest congestion, Denies cough and Denies dyspnea Musculoskeletal: Musculoskeletal: Reports no additional musculoskeletal complaints Integumentary/Breasts: Skin/Breast: Reports as per HPI [facility] Past Medical History Medical History Coronary artery disease severe single vessel coronary artery disease with chronic total occlusion of the proximal RCA with lbef-oh-kphei collaterals Chronic respiratory failure with hypoxia, on home oxygen therapy Pseudomonas respiratory infection Femoral artery stenosis, left Chronic kidney disease, stage 4 (severe) Heart failure with preserved ejection fraction echocardiogram in November 2021 showed normal LV size and function with an EF measured at 66% and impaired diastolic relaxation Chronic anemia Urethral stricture Empyema of left pleural space (05/2021) Pleural fluid grew out strep intermedius and staph hominis. Status post thoracotomy with decortication. Benign prostatic hyperplasia Peripheral vascular disease Status post right carotid endarterectomy. Status post left lower extremity stent. 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 History of right-sided carotid endarterectomy History of tonsillectomy Status post peripheral artery angioplasty with insertion of stent Left lower extremity. Status post placement of cardiac pacemaker (06/2020) History of hip replacement Bilaterally with revision History of herniorrhaphy Family History Family History Father Heart disease Heart attack Hypertension Cerebrovascular accident Mother Diabetes mellitus Hypertension Asthma Heart disease Sibling Hypertension Social History Social History Social History: Surrogate medical decision maker: Michelle Schroeder, . Code status: Full code. Smoking packs per day: 2 Smoking cigarettes per day: 40.0 Years smoked: 40 Smoking pack-years: 80.00 Smoking status: Former smoker Tobacco type: cigarettes Second hand tobacco smoke exposure: Yes Smoking end date: 08/22/09 Alcohol intake: never Alcohol use details: rarely Substance use: never Substance use type: does not use Do You Feel Safe in your Home?: Yes Lack of Transportation: No Lack of Food: Never True Current Housing: I Have Housing Concerned About Future Housing: No Difficulty Paying Gas/Electric Bills: No Difficulty Paying for Meds: No Currently Unemployed: No Education: Bachelor's Degree Difficulty w/ Childcare or Family Care: No Living arrangements: alone Additional living arrangements comments: . He has 3 children. 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 Spiritual care concerns: No Agree to blood products: Yes Comments At the time of my signature, I reviewed and agree with the nursing past medical, surgical, social, and family history. There is no relevant family history pertinent to the patient complaint. Exam 2 Const: General: cooperative, no acute distress, well developed, alert, ill appearing chronically and well nourished Nutritional Appearance: well nourished Orientation/consciousness: patient oriented x3 Limitations: no limitations HENMT: Head: normal to inspection Eyes: General: appearance normal, both eyes and all related structures A lignment and Position: alignment normal Neck: Neck: normal visual inspection, full ROM, no lymphadenopathy and no meningeal signs Neck images: 1. 1 cm hard area. No increased warmth, no fluctuance, no signs of cellulitic changes in surrounding tissue. Chest: Chest palpation & inspection: normal inspection of the chest Resp: Effort & Inspection: normal respiratory effort and able to speak in complete sentences Auscultation: clear to auscultation bilaterally, no crackles, no rales, no rhonchi and no wheezes Cardio: Rate: regular rate Skin: General skin exam: normal color and no rashes or lesions noted Neuro: General: patient oriented x3, gait normal, moves all extremities and no meningeal signs Cognition (Neuro): normal cognition Speech: normal speech Gait exam (Neuro): Normal gait present Extrem: General: normal to inspection, full ROM, capillary refill normal and normal gait Psych: Appearance: grossly normal and well kempt Mental Status: mental status grossly normal Speech and movement: Normal speech and movement present and Clear speech present Affect: normal affect Attitude: cooperative Course Course Level of Care: Express Care Visit Vital Signs Vital signs: Vital Signs Temperature 96.9 F L 11/19/24 18:36 Pulse Rate 78 11/19/24 18:36 Respiratory Rate 20 11/19/24 18:36 Blood Pressure 149/74 H 11/19/24 18:36 Pulse Oximetry 94 11/19/24 18:36 Oxygen Delivery Nasal Cannula 11/19/24 18:36 Oxygen Flow Rate 4 11/19/24 18:36 Temperature 96.9 F L 11/19/24 18:36 Pulse Rate 78 11/19/24 18:36 Respiratory Rate 20 11/19/24 18:36 Blood Pressure 149/74 H 11/19/24 18:36 Pulse Oximetry 94 11/19/24 18:36 Oxygen Delivery Nasal Cannula 11/19/24 18:36 Oxygen Flow Rate 4 11/19/24 18:36 Reviewed MDM - Skin/Abscess/Foreign Bdy MDM Narrative Medical decision making narrative: Patient is sitting in exam room. Nontoxic, vitals are stable. Patient presents with a concern for a cyst-like structure to his neck. No signs of cellulitic changes. Patient appropriate for outpatient treatment with close follow-up Discharge instructions reviewed with patient, as well as provided in writing per nursing staff. The instructions also include specific and strict return/GO TO THE ER as well as f/u information. All questions have been answered, and the patient deny any further questions with discharge and discharge plan. Some parts of this dictation were generated by voice recognition software and may contain typographical and/or grammatical inaccuracies. Differential Diagnosis Differential diagnosis: Likely abscess of skin or subcutaneous tissue and other (Cyst) Critical Care Time Critical Care Time Critical Care Time: No Discharge Plan Discharge Clinical Impression: Cyst Patient Disposition: Home, Self-Care Condition: Stable Instructions: Antibiotic Form, Cyst (ED) Additional Instructions: Take Tylenol as needed for pain follow-up with primary care provider do not touch the area except to apply hydrocortisone cream, this may help with the itching. For new or worsening symptoms go directly to the emergency room Patient Language: Honduran Prescriptions: No Action clopidogrel 75 mg tablet 75 mg PO DAILY tiotropium-olodaterol 2.5-2.5 mcg/actuation mist 2 puff inhalation DAILY Qty: 4 6RF sodium chloride [NebuSal] 3 % solution for nebulization 4 ml inhalation Q8H PRN (Reason: secretions) Qty: 120 1RF ethambutol 100 mg tablet 400 mg PO DAILY rifabutin 150 mg capsule 150 mg PO DAILY pantoprazole 40 mg tablet,delayed release (DR/EC) 40 mg PO DAILY amlodipine 10 mg tablet 10 mg PO HS finasteride 5 mg tablet 5 mg PO DAILY tamsulosin 0.4 mg capsule 0.8 mg PO HS acetaminophen 500 mg Tablet 1,000 mg PO Q6H PRN (Reason: Mild Pain (Scale Score 1-4)) Patient Comments: usually once a day doxepin 25 mg capsule 25 mg PO QHS PRN (Reason: Sleep) albuterol sulfate 90 mcg/actuation HFA aerosol inhaler 2 puff INHALATION Q6H PRN (Reason: shortness of breath or wheezing) Centrum 18-400 mg-mcg tablet 1 tablet PO DAILY Zyrtec 10 mg capsule 10 mg PO HS PRN (Reason: allergy symptoms) Dupixent Syringe 300 mg/2 mL syringe 300 mg subcut .COMPLEX Qty: 4 10RF Rx Instructions: 300 mg subcut 1 every 14 days; for rash on the 1st and 15th of every month carvedilol 25 mg tablet See Rx Instructions .ROUTE .COMPLEX Qty: 200 1RF Dose Instruction: TAKE 1 TABLET BY MOUTH EVERY 12 HOURS Rx Instructions: TAKE 1 TABLET BY MOUTH EVERY 12 HOURS potassium chloride 10 mEq capsule, extended release 10 meq PO DAILY Qty: 100 1RF albuterol sulfate 2.5 mg /3 mL (0.083 %) solution for nebulization 2.5 mg inhalation Q4-6H PRN (Reason: SOB) Qty: 180 6RF Follow-up/Referrals: Ilir Stover DO [Primary Care Provider] - 1 Week (express care follow up cyst blood pressure check ) Time of Disposition: 18:43
[2024-11-19 18:36] VITALS: BP 149/74; PULSE 78; RESP 20; TEMP 36.1; O2SAT 94
== END 2024-11-19 18:47 | disposition home or self-care (01) ==
PROVIDERS: Emergency Provider Nurse Practitioner; PCP Internal Medicine
DX: L72.9 Follicular cyst of the skin and subcutaneous tissue, unspecified (principal); Z87.891 Personal history of nicotine dependence; I25.10 Atherosclerotic heart disease of native coronary artery without angina pectoris; I13.0 Hypertensive heart and chronic kidney disease with heart failure and stage 1 through stage 4 chronic kidney disease, or unspecified chronic kidney disease; N18.4 Chronic kidney disease, stage 4 (severe); I50.9 Heart failure, unspecified; N40.0 Benign prostatic hyperplasia without lower urinary tract symptoms; I73.9 Peripheral vascular disease, unspecified; K21.9 Gastro-esophageal reflux disease without esophagitis; J44.9 Chronic obstructive pulmonary disease, unspecified; M19.90 Unspecified osteoarthritis, unspecified site; G47.33 Obstructive sleep apnea (adult) (pediatric); Z95.820 Peripheral vascular angioplasty status with implants and grafts; L40.9 Psoriasis, unspecified; Z96.643 Presence of artificial hip joint, bilateral; Z86.16 Personal history of COVID-19; Z95.0 Presence of cardiac pacemaker
CPT/HCPCS: 99211; G0463

== ENCOUNTER 2025-02-18 13:03 | Outpatient (CLI) | payer MEDICARE, SELFPAY ==
--- NOTE | ~2025-02-18 | CT_ITS ---
CT Scan of the Chest without Contrast: Clinical Indication: Pulmonary mycobacterial infection Technique: Contiguous sections were acquired throughout the chest without intravenous contrast. Dose reduction technique was used on this scan by utilizing automated exposure control and iterative recon struction technique. The dose-length product (DLP) was 87.20 mGy-cm. COMPARISON: 07/18/2024 Findings: There is no evidence of any significant mediastinal, hilar or axillary lymphadenopathy. There are ext ensive atherosclerotic calcifications of the aorta and coronary arteries. There is no evidence of pleural or pericardial effusion. Patchy airspace disease and irregular scattered pulmonary nodules are similar overall distribution to prior exam. There are tree-in-bud opacities the lung bases. There is bronchiolectasis in the left lo wer lobe and lingula. Moderate emphysema. Images through the upper abdomen reveal abdominal aortic aneurysm measuring up to 4.4 cm in maximum d iameter.. Impression: Pulmonary findings overall are similar to prior exam, compatible with acute on chronic small airways infectious process, such as FERNANDO infection. Moderate emphysema. 4.4 cm abdominal aortic aneurysm. Reviewed, dictated and finalized at [facility]. Impression: Pulmonary findings overall are similar to prior exam, compatible with acute on chronic small airways infectious process, such as FERNANDO infection. Moderate emphysema. 4.4 cm abdominal aortic aneurysm.
--- OUTSIDE RECORDS SUMMARY | 2025-02-18 13:30 | XMS_ITS | Referral Summary ---
Author Organization [facility] [address] Address [address] [place] [address] Care Team Providers Care Pca Name Role Phone Daniela Hilario DEPARTURE CLERK Unavailable [phone] Ranulfo Romo DO Primary Care Provider [phone] Encounters Date Type Department Care Team Description 02/01/2025 Telephone [facility] Infectious Diseases [address] [place] [address] [place] [address] Afia Nagy 01/30/2025 7:45 AM CDT Ancillary Procedure [facility] Cardiology [address] [place] [address] NICM (nonischemic cardiomyopathy) (HCC); 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; Ventricular fibrillation (HCC); NSVT (nonsustained ventricular tachycardia) (HCC) 01/15/2025 Telephone [facility] Infectious Diseases [address] [place] [address] [place] [address] Nita Miller CMA 01/09/2025 Telephone [facility] Infectious Diseases [address] [place] [address] [place] [address] Maine Esquivel CMA 01/08/2025 12:20 PM CDT - 01/08/2025 11:59 PM CDT Hospital Encounter [facility] [address] [place] [address] Pulmonary mycobacterial infection (HCC) Discharge Disposition: Discharge to home or self care 01/08/2025 9:20 AM CDT Office Visit [facility] Infectious Diseases [address] [facility] [address] [place] [address] Vicki Hahn NP Pulmonary mycobacterial infection (HCC) (Primary Dx); 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 Results Follow-Up [facility] Infectious Diseases [address] [facility] [address] [place] [address] Vicki Hhan NP Mycobacteriology (AFB) culture and acid-fast stain Sputum Sputum 12/14/2024 Telephone [facility] Infectious Diseases [address] [facility] [address] [place] [address] Nahomy Sorto RMA from Last 3 Months Allergies Active Allergy [...] mouth 2 (two) times a day Active cilostazoL (PLETAL) 50 mg tablet TAKE [...] mg by mouth nightly as needed Active clopidogreL (PLAVIX) 75 mg tablet TAKE 1 TABLET BY MOUTH DAILY 100 tablet 2 10/25/[address] (PROTONIX) 40 mg EC tablet TAKE 1 TABLET BY MOUTH DAILY 100 tablet 1 11/23/19 25 Active atorvastatin (LIPITOR) 80 mg tablet TAKE 1 TABLET BY MOUTH EVERY NIGHT 100 tablet 01/29/20 25 Active atorvastatin (LIPITOR) 80 mg tablet Take 1 tablet (80 mg total) by mouth nightly 90 tablet 3 05/01/20 24 025 Discontinued Active Problems Problem Noted Date Diagnosed Date 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 DOI 05/02/2019-Dr Zenia Good ([place]). [facility] Assessment & Plan (06/11/2021 8:06 AM CDT): [...] CDT Gender Identity Male 08/12/2022 2:14 PM INVESTMENT COUNSELOR Sexual Orientation Not on file Last Filed Vital Signs Vital Sign Reading Time Taken Comments Blood Pressure 176/68 01/08/2025 9:26 AM CDT Pulse 73 01/08/2025 9:26 AM CDT Temperature 36.7 C (98 F) 01/08/2025 9:26 AM CDT Respiratory Rate 24 01/27/2024 8:49 AM CDT Oxygen Saturation 91% 09/18/2024 10: 22 AM INVESTMENT COUNSELOR Inhaled Oxygen Concentration - - Weight 68.4 kg (150 lb 12.7 oz) 025 10:22 AM INVESTMENT COUNSELOR Height 172.7 cm (5' 8) 04/25/2024 12:5 7 PM CDT Body Mass Index 22.93 04/25/2024 12:57 PM CDT Plan of Treatment Not on file Medical Devices Implanted Type Area Horseradish Grinder Device Identifier Shelf Expiration Date Model / Serial / Lot Pacemaker Pacemaker Chest Procedures Procedure Name Priority Date/Time Associated Diagnosis Comments MYCOBACTERIOLOGY AFB CULTURE AND ACID-FAST STAIN Routine 01/08/2025 10:15 AM CDT Pulmonary mycobacterial infection (HCC) HEPATITIS C ANTIBODY Routine 09/18/2024 11:41 AM INVESTMENT COUNSELOR Other specified respiratory disorders from Last 3 Months or Most Recently Relevant to Health Maintenance Results * (ABNORMAL) Mycobacteriology (AFB) culture and acid-fast stain Sputum Sputum (01/08/2025 10:15 AM CDT) Direct Specimen Exam Stain: Inconclusive Report Final Report: Culture contaminated. No further examination possible. Unable to rule out Mycobacteria. (.) [facility] Sputum (Sputum) 01/08/2025 1 0:15 AM CDT 01/08/2025 1:17 PM CDT Narrative [facility] - 01/29/2025 2:33 PM CDT Testing performed by [facility] Microbiology Laboratory ([phone]). us Vicki Hahn NP LAB MICROBIOLOGY - GENERA L ORDERABLES Final Result [facility] Department [place] [address] * Hepatitis C antibody Blood (09/18/2024 11:41 AM INVESTMENT COUNSELOR) Hep C Ab Nonreactive Nonreactive Comment:Antibodies to HCV no t detected. Does NOT exclude the possibility of recent exposure to HCV. Current interpretive data was last revised on 22 Blood 09/18/2024 11:4 1 AM INVESTMENT COUNSELOR 09/18/2024 3:56 PM INVESTMENT COUNSELOR us Vicki Hahn NP LAB MICROBIOLOGY - GENERA L ORDERABLES Final Result Performing Organization Address [facility] de Phone Number [facility] Department [place] [address] from Last 3 Months or Most Recently Relevant to Health Maintenance Insurance [facility] [place] [address] [facility] MEDICARE ADVANTAGE [facility] CHOICE PLUS MEDICARE [facility] [place] [address] Advance Directives For more information, please contact: [phone] * Full Code (Latest Code Status on File) Date Activated Date Inactivated Comments 06/12/2021 8:06 PM 06/23/2021 5:12 PM * Full Code Date Activated Date Inactivated Comments 06/10/2021 9:01 PM 06/12/2021 8:06 PM Care Teams Pca Relationship Specialty Start Date End Date Ranulfo Romo DO PCP - General Family Medicine 04/08/22 Daniela Hilario NP Nurse Practitioner Nurse Practitioner 03/26/22
--- OUTSIDE RECORDS SUMMARY | 2025-02-18 13:30 | XMS_ITS | Encounter Summary ---
Author Organization [facility] Address [address] [place] [address] Phone Care Team Providers Care Mystery Shopper Name Role Phone Daniela Hilario PHYSICIAN REPRESENTATIVE Unavailable [phone] Ranulfo Romo DO Primary Care Provider [phone] Encounter Details Date Type Department Care Team [...] CDT Gender Identity Male 08/12/2022 2:14 PM PACKAGE SEALER Sexual Orientation Not on file documented as of this encounter Plan of Treatment Not on file documented as of this encounter Procedures Procedure Name Priority Date/Time Associated Diagnosis Comments SCAN - LABS 11/22/2023 documented in this encounter Results * SCAN - LABS (11/22/2023) us Provider Scanning Final Result documented in this encounter Visit Diagnoses Not on filedocumented in this encounter Care Teams Mystery Shopper Relationship Specialty Start Date End Date Ranulfo Romo DO PCP - General Family Medicine 04/08/22 Daniela Hilario NP Nurse Practitioner Nurse Practitioner 03/26/22 documented as of this encounter
--- OUTSIDE RECORDS SUMMARY | 2025-02-18 13:30 | XMS_ITS | Patient Health Record ---
Author Organization [facility] Address [address] [place] [address] Care Team Providers Care Oil Well Perforator Operator Name Role Phone Ari Bailey Unavailable [phone] Reason For Referral No Information Immunizations Vaccine Route Administration Date Status Comme nts PuneetVIMoriah - Pfizer IM Intramuscular 10/22/2020 Administered Plan Of Treatment No Information Insurance Providers Payer Name Payer Address Payer Phone Subscriber Number Group Number Insured Name Patient Relationship to Insured Coverage Start Date Coverage End Date [facility] ( [facility] ) [address] [address] [place], [place] [id number] [phone] [id number] Freddy Hill Self - patient is the insured
--- OUTSIDE RECORDS SUMMARY | 2025-02-18 13:30 | XMS_ITS | Encounter Summary ---
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 Sexual Orientation Not on file documented as of this encounter Plan of Treatment Not on file documented as of this encounter Procedures Procedure Name Priority Date/Time Associated Diagnosis Comments SCAN - LABS 02/17/2024 documented in this encounter Results * SCAN - LABS (02/17/2024) us Provider Scanning Final Result documented in this encounter Visit Diagnoses Not on filedocumented in this encounter Care Teams Livestock Farmers Relationship Specialty Start Date End Date Ranulfo Romo DO PCP - General Family Medicine 04/08/22 Daniela Hilario NP Nurse Practitioner Nurse Practitioner 03/26/22 documented as of this encounter
--- OUTSIDE RECORDS SUMMARY | 2025-02-18 13:30 | XMS_ITS | Patient Health Record ---
Author Organization [facility] Billing Info Address [address] [place] [address] Support Name Relationship Address Phone Meggan Hill Emergency Contact [address] [place] [address] Freddy Hill Guarantor Unknown [phone] Reason For Referral No Information Plan Of Treatment No Information Insurance Providers Payer Name Payer Address Payer Phone Subscriber Number Group Number Insured Name Patient Relationship to Insured Coverage Start Date Coverage End Date [employer] [address] [address] [place], [place] [id number] Freddy Hill Self - patient is the insured 5 5 [employer] OPEN ACCESS PLUS O POS [address] KAREN BOBO [id number] Freddy Hill Self - patient is the insured 2 0
--- OUTSIDE RECORDS SUMMARY | 2025-02-18 13:30 | XMS_ITS | Encounter Summary ---
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 Sexual Orientation Not on file documented as of this encounter Plan of Treatment Not on file documented as of this encounter Procedures Procedure Name Priority Date/Time Associated Diagnosis Comments SCAN - LABS 03/07/2024 documented in this encounter Results * SCAN - LABS (03/07/2024) us Provider Scanning Final Result documented in this encounter Visit Diagnoses Not on filedocumented in this encounter Care Teams Prosthetics Lab Technician Relationship Specialty Start Date End Date Ranulfo Romo DO PCP - General Family Medicine 04/08/22 Daniela Hilario NP Nurse Practitioner Nurse Practitioner 03/26/22 documented as of this encounter
--- OUTSIDE RECORDS SUMMARY | 2025-02-18 13:30 | XMS_ITS | Clinical Summary ---
Author Organization [facility] Address [address] [place] [address] Phone Care Team Providers Care Timing Adjuster Name Role Phone Ranulfo Romo Primary Care Provider [phone] Allergies Active Allergy Reactions Criticality Noted Date Comments Cephalexin Vomiting Low 07/13/2021 Other reaction(s): Stomach upset Medications acetaminophen (TYLENOL) 500 MG tablet Take 500 mg by mouth every 6 hours as needed Active albuterol HFA (PROVENTIL HFA) 108 (90 Base) MCG/ACT inhaler INHALE 2 PUFFS EVERY 4 HOURS BY INHALATION ROUTE NEEDED FOR 30 DAYS. 1 Active carvedilol (COREG) 25 MG tablet TAKE 1 & 1/2 TABLETS BY MOUTH TWICE A DAY 2 Active cetirizine (ZyrTEC) 10 MG chewable tablet Chew 10 mg daily Active cilostazol (PLETAL) 100 MG tablet Take 100 mg by mouth 2 (two) times a day 2 Active clopidogrel (PLAVIX) 75 MG tablet 2 Active doxepin (SINEquan) 25 MG capsule Take 25 mg by mouth every night 2 Active Dupixent 300 MG/2ML solution prefilled syringe 2 Active Wixela Inhub 500-50 MCG/ACT aerosol powder INHALE 1 PUFF TWICE A DAY BY INHALATION ROUTE DIRECTED FOR 30 DAYS. 2 Active furosemide (LASIX) 40 MG tablet Take 40 mg by mouth 1 (one) time each day in the morning 2 Active gabapentin (NEURONTIN) 300 MG capsule 2 Active Melatonin 5 MG capsule Take by mouth Active Multiple Vitamin (multivitamin) capsule Take 1 capsule by mouth daily Active Polyethylene Glycol 3350 (PEG 3350) 17 g pack TAKE 1 PACKET (17 G TOTAL) BY MOUTH DAILY FOR 7 DAYS. DISSOLVE POWDER IN 240 ML WATER 2 Active potassium chloride (MICRO-K) 10 MEQ CR capsule Take by mouth 1 (one) time each day 2 Active tamsulosin (FLOMAX) 0.4 MG 24 hr capsule Take 0.8 mg by mouth 1 (one) time each day 2 Active Xarelto 2.5 MG tablet Take 1 tablet by mouth 2 (two) times a day 2 Active Spiriva Respimat 2.5 MCG/ACT aerosol solution 2 Active traMADol (ULTRAM) 50 MG tablet Take 50 mg by mouth every 6 (six) hours if needed 2 Active triamcinolone (KENALOG) 0.1 % ointment APPLY DAILY TO RASH ON ELBOWS 1 Active amLODIPine (NORVASC) 10 MG tablet Take 10 mg by mouth daily Active atorvastatin (LIPITOR) 80 MG tablet Take 80 mg by mouth 1 (one) time each day 2 Active cloNIDine (CATAPRES) 0.1 MG tablet Take 0.1 mg by mouth daily Active pantoprazole (PROTONIX) 40 MG EC tablet Take 40 mg by mouth 1 (one) time each day 2 Active Active Problems Problem Noted Date Diagnosed [...] other nephrotoxic medications - Monitor labs Immunizations Immunization Administration Dates Next Due Influenza, Unspecified 04/24/2021 Pfizer Sars-cov-2 Vaccination 08/12/2021, 021 Pneumococcal Conjugate 04/22/2012 Social History Tobacco Use Types Packs/Day Years Used Date Smoking Tobacco: Former Smokeless Tobacco: Never Alcohol Use Standard Drinks/Week Comments Not Currently 0 (1 standard drink = 0.6 oz pur e alcohol) Sex and Gender Information Value Date Recorded Sex Assigned at Not on file Legal Sex Male 10:53 AM MDT Gender Identity Not on file Sexual Orientation [...] / Low and Medium Risk (1 of 2 - PCV) 2001 COVID-19 Vaccine ( season) 2024 08/12/2021, 11/26/2020, 10/22/2020 Influenza Vaccine (Season Ended) 2025 04/24/20 Insurance [employer] MEDICARE Care Teams Timing Adjuster Relationship Specialty Start Date End Date Ranulfo Romo DO PCP - General Family Medicine 12/30/21
--- OUTSIDE RECORDS SUMMARY | 2025-02-18 13:30 | XMS_ITS | Clinical Summary ---
Author Organization [facility] [address] Address [address] [place] [address] Care Team Providers Care Core Measures Abstractor Name Role Phone Daniela Hilario HOLLOW WARE MAKER Unavailable [phone] Ranulfo Romo DO Primary Care Provider [phone] Allergies Active Allergy Reactions Criticality Noted Date [...] (12/30/2021): Added automatically from request for surgery [id number] ALFREDO (acute kidney injury) 06/16/2021 Assessment & [...] 06/10/2021 Assessment & Plan (07/10/2021 8:59 PM RIGGING SUPERVISOR): - Currently receiving Ceftriaxone 2 g IV [...] DOI 05/02/2019-Dr Zenia Good ([place]). [facility] remote. 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; Ventricular fibrillation (HCC); NSVT (nonsustained ventricular tachycardia) (HCC) 01/15/2025 Telephone [facility] Infectious Diseases [address] [place] [address] Nita Miller, HARPOON ENGAGEMENT PLANNING OPERATOR 01/09/2025 Telephone [facility] Infectious Diseases [address] [place] [address] Maine Esquivel, COURT 01/08/2025 12:20 PM CDT - 01/08/2025 11:59 PM CDT Hospital Encounter [facility] [address] [place] [address] Pulmonary mycobacterial infection (HCC) Discharge Disposition: Discharge to home or self care 01/08/2025 9:20 AM CDT Office Visit [facility] Infectious Diseases [address] [place] [address] Vicki Hahn NP Pulmonary mycobacterial infection (HCC) (Primary Dx); 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 Results Follow-Up [facility] Infectious Diseases [address] [place] [address] Vicki Hahn, SHASHANK Mycobacteriology (AFB) culture and acid-fast stain Sputum Sputum 12/14/2024 Telephone [facility] Infectious Diseases [address] [place] [address] Nahomy Sorto RMA from Last 3 Months Immunizations Immunization Administration [...] stage 3, GFR 30-59 ml/min ([facility]) Sleep apnea Asthma Carotid stenosis [...] CDT Gender Identity Male 08/12/2022 2:14 PM RIGGING SUPERVISOR Sexual Orientation Not on file Obstetrics History Last Filed Vital Signs Vital Sign Reading Time Taken Comments Blood Pressure 176/68 01/08/2025 9:26 AM CDT Pulse 73 01/08/2025 9:26 AM CDT Temperature 36.7 C (98 F) 01/08/2025 9:26 AM CDT Respiratory Rate 24 01/27/2024 8:49 AM CDT Oxygen Saturation 91% 09/18/2024 10: 22 AM RIGGING SUPERVISOR Inhaled Oxygen Concentration - - Weight 68.4 kg (150 lb 12.7 oz) 025 10:22 AM RIGGING SUPERVISOR Height 172.7 cm (5' 8) 04/25/2024 12:5 [...] 2024 08/12/2021, 11/26/2020, 11/14/2020, Additional history exists Fall Risk Assessment 01/26/2025 01/27/2024 Influenza Vaccine (Season Ended) 2025 05/04/20, 04/24/2021 Hepatitis C Screening Completed 09/18/2024 Medical Devices Implanted Type Area In Store Representative Device Identifier Shelf Expiration Date Model / Serial / Lot Pacemaker Pacemaker Chest Procedures Procedure Name Priority Date/Time Associated Diagnosis Comments MYCOBACTERIOLOGY AFB CULTURE AND ACID-FAST STAIN Routine 01/08/2025 10:15 AM CDT Pulmonary mycobacterial infection (HCC) HEPATITIS C ANTIBODY Routine 09/18/2024 11:41 AM RIGGING SUPERVISOR Other specified respiratory disorders from Last 3 Months or Most Recently Relevant to Health Maintenance Results * (ABNORMAL) Mycobacteriology (AFB) culture and acid-fast stain Sputum Sputum (01/08/2025 10:15 AM CDT) Direct Specimen Exam Stain: Inconclusive Report Final Report: Culture contaminated. No further examination possible. Unable to rule out Mycobacteria. (.) [facility] Sputum (Sputum) 01/08/2025 1 0:15 AM CDT 01/08/2025 1:17 PM CDT Narrative [facility] - 01/29/2025 2:33 PM CDT Testing performed by [facility] ([phone]). us Vicki Hahn NP LAB MICROBIOLOGY - GENERA L ORDERABLES Final Result [facility] Department [place] [address] * Hepatitis C antibody Blood (09/18/2024 11:41 AM RIGGING SUPERVISOR) Hep C Ab Nonreactive Nonreactive Comment:Antibodies to HCV no t detected. Does NOT exclude the possibility of recent exposure to HCV. Current interpretive data was last revised on 22 Blood 09/18/2024 11:4 1 AM RIGGING SUPERVISOR 09/18/2024 3:56 PM RIGGING SUPERVISOR us Vicki Hahn NP LAB MICROBIOLOGY - GENERA L ORDERABLES Final Result [facility] Department [place] [address] from Last 3 Months or Most Recently Relevant to Health Maintenance Insurance [facility] MEDICARE ADVANTAGE [facility] Address: [address] [address] [facility] MEDICARE ADVANTAGE [facility] Address: [address] [address] [place] [address] [facility] CHOICE PLUS [facility]/PPO Address: [address] [address] [place] [address] MEDICARE [facility] MEDICARE ADVANTAGE [facility] Address: [address] [address] [place] [address] Advance Directives For more information, please contact: [phone] * Full Code (Latest Code Status on File) Date Activated Date Inactivated Comments 06/12/2021 8:06 PM 06/23/2021 5:12 PM * Full Code Date Activated Date Inactivated Comments 06/10/2021 9:01 PM 06/12/2021 8:06 PM Care Teams Core Measures Abstractor Relationship Specialty Start Date End Date Ranulfo Romo DO PCP - General Family Medicine 04/08/22 Daniela Hilario NP Nurse Practitioner Nurse Practitioner 03/26/22
--- OUTSIDE RECORDS SUMMARY | 2025-02-18 13:30 | XMS_ITS | Encounter Summary ---
Author Organization [facility] Address [address] [facility] [address] [place] [address] Phone Care Team Providers Care Devops Solutions Architect Name Role Phone Daniela Hilario NP Unavailable [phone] Ranlufo Romo DO Primary Care Provider [phone] Encounter Details Date Type Department Care Team (Latest Contact Info) Description 12/17/2024 Results Follow-Up [facility] Infectious Diseases [address] [place] [address] [address] [place] [address] Vicki Hahn, SHASHANK [address] [place] [address] Mycobacteriology (AFB) culture and acid-fast stain Sputum Sputum Social History Tobacco Use Types Packs/Day Years [...] CDT Gender Identity Male 08/12/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
--- OUTSIDE RECORDS SUMMARY | 2025-02-18 13:30 | XMS_ITS | Encounter Summary ---
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
== END 2025-02-18 13:04 | disposition home or self-care (01) ==
DX: A31.0 Pulmonary mycobacterial infection (principal); J43.9 Emphysema, unspecified; I71.40 Abdominal aortic aneurysm, without rupture, unspecified
CPT/HCPCS: 71250

== ENCOUNTER 2025-03-13 06:39 | Inpatient (IN) | payer MEDICARE, SELFPAY ==
[2025-03-13] VITALS (22 sets, daily range): BP systolic 137–157; BP diastolic 60–70; PULSE 66–88; RESP 16–29; TEMP 36.3–37.2; O2SAT 95–100; BMI 25.1
--- NOTE | ~2025-03-13 | CT_ITS ---
EXAMINATION: CTA chest PE protocol DATE: 03/13/2025 9:16 CDT INDICATION: Hemoptysis TECHNIQUE: Computed tomographic angiography (CTA) of the chest was performed with 100 mL Omnipaque-35 0 intravenous contrast. The dose-length product was 257.40 mGy-cm. Maximum intensity projection 3D-re constructions of the aorta and other arteries were constructed by the technologist on a separate work station. Automated exposure control and iterative reconstruction technique were employed. COMPARISON: CT dated 02/18/2025. FINDINGS: Heart size normal. There is atherosclerosis and ectasia of the aorta and coronary arteries. No significant pleural or pericardial effusion. No large central pulmonary embolism. Evaluation of p eripheral pulmonary arteries limited by motion and contrast bolus timing. Superior aspect of abdomina l aortic aneurysm identified measuring 3.9 cm. There is renal atrophy. There are bilateral renal cyst s. Mediastinal lymphadenopathy. There is right hilar lymphadenopathy. There is severe emphysema. Ther e is an 8 mm left upper lobe nodule with irregular margins, image 31. There is bronchiectasis. There is mucous plugging in the left lower lobe bronchi. There are left lower lobe nodules, largest measuri ng 10 mm. There is patchy consolidation of the left lower lobe which may represent atelectasis/scarri ng or pneumonia. No pneumothorax. No endobronchial lesions. IMPRESSION: 1. No evidence for pulmonary embolism in the central pulmonary arteries. Evaluation of peripheral pul monary arteries limited. 2: Severe emphysema with bronchiectasis and mucous plugging. 3: Left-sided pulmonary nodules measuring 10 mm or less. Cannot exclude primary bronchogenic carcinom a or metastatic disease versus infectious/inflammatory process. 4: Patchy left lower lobe consolidation which may represent atelectasis, aspiration related inflamma tion or pneumonia. 5: Mediastinal and hilar lymphadenopathy which can be reactive or related to prior granulomatous dis ease or chronic inflammation. Differential diagnosis includes metastatic disease, smoking-related lym ph node hyperplasia lymphoma. Reviewed, dictated and finalized at location A. IMPRESSION: 1. No evidence for pulmonary embolism in the central pulmonary arteries. Evalua tion of peripheral pulmonary arteries limited. 2: Severe emphysema with bronchiectasis and mucous plugging. 3: Left-sided pulmonary nodules measuring 10 mm or less. Cannot exclude primary bronchogenic carcinoma or metastatic disease versus infectious/inflammatory pr ocess. 4: Patchy left lower lobe consolidation which may represent atelectasis, aspir ation related inflammation or pneumonia. 5: Mediastinal and hilar lymphadenopathy which can be reactive or related to p rior granulomatous disease or chronic inflammation. Differential diagnosis incl udes metastatic disease, smoking-related lymph node hyperplasia lymphoma.
--- NOTE | ~2025-03-13 | XR_ITS ---
XR chest 2V 03/13/2025 08:56 Indication: Coughing up blood. COPD. Emphysema. Procedure: 2 view chest Comparison: Comparison to multiple prior studies sequentially, with oldest reviewed study dated 06/22. Findings: Coarse chronic interstitial changes peripherally predominantly affecting the lung bases, le ft greater than right. Mildly elevated left diaphragm. There is left pleural thickening versus small effusion, unchanged. Pacemaker leads are stable. The lungs are hyperinflated which is consistent with , but not diagnostic of chronic obstructive pulmonary disease. Impression: 1: Stable chronic interstitial lung disease with chronic left pleural thickening/effusion. No signifi cant interval change. Reviewed, dictated and finalized at location A. Impression: 1: Stable chronic interstitial lung disease with chronic left pleural thickenin g/effusion. No significant interval change.
--- NOTE | 2025-03-13 07:13 | ED_ITS ---
HPI - SOB/Dyspnea General Chief Complaint: Shortness of Breath/Dyspnea Stated Complaint: coughing up blood Time Seen by Provider: 03/13/25 07:00 Source: patient History of Present Illness HPI Narrative: 74 YEARS OLD WHITE MALE CAME FROM HOME BY AMBULANCE COMPLAINING OF SHORTNESS OF BREATH AND COUGHING UP PINKISH SPUTUM STARTED LAST NIGHT GRADUALLY GETTING MORE COUGHING, SHORTNESS OF BREATH AND GROSS BLOOD IN THE SPUTUM THIS MORNING. PATIENT CURRENTLY ON PLAVIX AND ELIQUIS. HISTORY OF COPD, HYPERTENSION, HYPERLIPIDEMIA, COPD ON 4 L OXYGEN BY NASAL CANNULA AND POOR PERIPHERAL CIRCULATION. Related Data Home Medications ?Medication ?Instructions ?Recorded ?Confirmed ?Last Taken ?Type acetaminophen 500 mg tablet 1,000 mg PO Q6H PRN Mild Pain 06/02/21 03/13/25 Unknown History (Scale Score 1-4) pantoprazole 40 mg tablet,delayed 40 mg PO DAILY 01/11/22 03/13/25 10/14/23 History release doxepin 25 mg capsule 25 mg PO QHS PRN Sleep 05/15/22 03/13/25 05/14/22 History tamsulosin 0.4 mg capsule 0.8 mg PO HS 01/24/23 03/13/25 10/14/23 History clopidogrel 75 mg tablet 75 mg PO DAILY 07/21/23 03/13/25 03/12/25 History amlodipine 10 mg tablet 10 mg PO HS 02/02/24 03/13/25 03/12/25 History finasteride 5 mg tablet 5 mg PO DAILY 04/30/24 03/13/25 Unknown History albuterol sulfate 90 mcg/actuation 2 puff inhalation Q6H PRN 09/04/24 03/13/25 Unknown History aerosol inhaler shortness of breath or wheezing cetirizine 10 mg capsule (Zyrtec) 10 mg PO HS PRN allergy symptoms 09/04/24 03/13/25 Unknown History multivitamin-ferrous 1 tablet PO DAILY 09/04/24 03/13/25 Unknown History fumarate-folic acid 18 mg-400 mcg tablet (Centrum) atorvastatin 80 mg tablet (Lipitor) 80 mg PO DAILY 01/29/25 03/13/25 03/12/25 History cilostazol 50 mg tablet 50 mg PO BID 01/29/25 03/13/25 03/12/25 History furosemide 40 mg tablet 40 mg PO QAM 01/29/25 03/13/25 Unknown History gabapentin 300 mg capsule 300 mg PO DAILY PRN neuropathy 01/29/25 03/13/25 Unknown History tramadol 50 mg tablet 50 mg PO Q6H PRN pain 01/29/25 03/13/25 Unknown History triamcinolone acetonide 0.1 % 1 applic topical BID PRN itching 01/29/25 03/13/25 Unknown History topical cream Allergies Allergy/AdvReac Type Severity Reaction Status Date / Time oxycodone AdvReac Severe severe Verified 03/13/25 12:41 constipation doxycycline AdvReac Unknown Nausea and Verified 03/13/25 12:41 Vomiting Review of Systems 2 Review of Systems: All systems reviewed & are unremarkable except as noted in HPI and below PMFSH Past Medical History Medical History Coronary artery disease severe single vessel coronary artery disease with chronic total occlusion of the proximal RCA with [id number] collaterals Chronic kidney disease, stage 4 (severe) Chronic respiratory failure with hypoxia, on home oxygen therapy Pseudomonas respiratory infection Femoral artery stenosis, left Heart failure with preserved ejection fraction echocardiogram in November 2021 showed normal LV size and function with an EF measured at 66% and impaired diastolic relaxation Chronic anemia Urethral stricture Empyema of left pleural space (05/2021) Pleural fluid grew out strep intermedius and staph hominis. Status post thoracotomy with decortication. Benign prostatic hyperplasia Peripheral vascular disease Status post right carotid endarterectomy. Status post left lower extremity stent. COVID-19 (04/2020) AV block status post Medtronic pacemaker placement Chronic kidney disease, stage 3 Psoriasis Eczema Gastroesophageal reflux disease COPD with emphysema Loculated empyema Obstructive sleep apnea On 2 L nasal cannula at nighttime Hypertension Arthritis Surgical History Surgical History History of cardiac catheterization (01/2024) severe single vessel coronary artery disease with chronic total occlusion of the proximal RCA with [id number] collaterals History of dilation of urethra History of thoracotomy (05/2021) Left thoracotomy with decortication for empyema. History of right-sided carotid endarterectomy History of tonsillectomy Status post peripheral artery angioplasty with insertion of stent Left lower extremity. Status post placement of cardiac pacemaker (06/2020) History of hip replacement Bilaterally with revision History of herniorrhaphy Family History Family History Father Heart disease Heart attack Hypertension Cerebrovascular accident Mother Diabetes mellitus Hypertension Asthma Heart disease Sibling Hypertension Social History Social History Social History: Surrogate medical decision maker: Michelle Schroeder, sister. Code status: Full code. Smoking packs per day: 2 Smoking cigarettes per day: 40.0 Years smoked: 40 Smoking pack-years: 80.00 Smoking status: Former smoker Tobacco type: cigarettes Second hand tobacco smoke exposure: Yes Smoking end date: 08/22/09 Alcohol intake: never Alcohol use details: rarely Substance use: never Substance use type: does not use Do You Feel Safe in your Home?: Yes Lack of Transportation: No Lack of Food: Never True Current Housing: I Have Housing Concerned About Future Housing: No Difficulty Paying Gas/Electric Bills: No Difficulty Paying for Meds: YES Currently Unemployed: No Education: Bachelor's Degree Difficulty w/ Childcare or Family Care: No Living arrangements: alone Additional living arrangements comments: . He has 3 children. 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 Spiritual care concerns: No Agree to blood products: Yes Exam 2 Narrative: GENERAL APPEARANCE: WELL-DEVELOPED, WELL-NOURISHED SKIN: NORMAL COLOR HEAD: NORMOCEPHALIC, NONTRAUMATIC EYES: CLEAR CONJUNCTIVA ENT: OROPHARYNX NORMAL, EARS NORMAL, NOSE NORMAL NECK: SUPPLE, NONTENDER CHEST AND RESPIRATORY: AIRWAY PATENT, NO RESPIRATORY DISTRESS, NO ACCESSORY MUSCLE USE, DIMINUTION OF AIR ENTRY BILATERALLY, SCATTERED RALES BILATERALLY HEART: REGULAR RATE/RHYTHM ABDOMEN: SOFT, NONTENDER, NO ORGANOMEGALY, QUIET BOWEL SOUNDS VASCULAR: NORMAL PERIPHERAL PULSES, NORMAL CAPILLARY REFILL. MUSCULOSKELETAL: NORMAL RANGE OF MOTION, NONTENDER BACK NEUROLOGIC: ALERT AND ORIENTED ?3, BANNER PAINTER IS NORMAL TESTED, NO GROSS MOTOR DEFICIT Course Vital Signs Vital signs: Vital Signs Temperature 37.2 C 03/13/25 06:45 Pulse Rate 76 03/13/25 06:45 Respiratory Rate 26 H 03/13/25 06:45 Blood Pressure 137/62 03/13/25 06:45 Pulse Oximetry 96 03/13/25 06:45 Oxygen Delivery Nasal Cannula 03/13/25 06:45 Oxygen Flow Rate 4 03/13/25 06:45 Temperature 36.6 C 03/13/25 14:40 Pulse Rate 80 03/13/25 15:29 Respiratory Rate 20 03/13/25 15:29 Blood Pressure 150/70 H 03/13/25 14:40 Pulse Oximetry 96 03/13/25 15:18 Oxygen Delivery Nasal Cannula 03/13/25 15:18 Oxygen Flow Rate 4 03/13/25 15:18 MDM - SOB/Dyspnea MDM Narrative Medical decision making narrative: PATIENT PRESENTS WITH PRODUCTIVE COUGH OF BLOODY SPUTUM FOR THE 24 HOUR. PATIENT ON 4 L OXYGEN BY NASAL CANNULA, CHRONIC VITAL SIGNS SHOWING RESPIRATORY RATE 26 OTHERWISE WITHIN NORMAL LIMIT PHYSICAL EXAMINATION SHOWING INTERMITTENT COUGHING OF BLOODY SPUTUM DIFFERENTIAL DIAGNOSIS INCLUDE PNEUMONIA, CONGESTIVE HEART FAILURE, COPD EXACERBATION, LUNG CANCER, LESS LIKELY PULMONARY EMBOLISM, BLOOD WORKUP TODAY INCLUDE BLOOD CULTURE, CBC, CMP, TROPONIN, COAGS SHOWED NO SIGNIFICANT ABNORMALITY CHEST X-RAY SHOWED NO ACUTE ABNORMALITIES CTA CHEST SHOWED: NO PE, SEVERE EMPHYSEMA, PULMONARY NODULE, QUESTIONABLE PNEUMONIA, MEDIASTINAL IN ADENOPATHY ADMIT TO HOSPITALIST DIAGNOSIS: COPD EXACERBATION, HEMOPTYSIS, QUESTIONABLE PNEUMONIA, QUESTIONABLE LUNG MASS AND METASTASIS Differential Diagnosis Differential diagnosis: Likely other ( ABOVE) Medical Records Attestation: I reviewed the patient's medical records. Lab Data Attestation: I reviewed the patient's lab results. 03/13/25 07:40 03/13/25 07:39 Labs: Lab Results 03/13/25 03/13/25 Range/Units 07:39 07:40 WBC 7.6 (4.5-10.0) K/mm3 RBC 4.07 L (4.6-6.20) M/mm3 Hgb 10.3 L (14.0-18.0) g/dL Hct 36.1 L (42.0-52.0) % MCV 88.7 (80-100) fl MCH 25.3 L (26-34) pg MCHC 28.5 L (32-36) g/dl RDW 15.3 H (11.5-14.5) % Plt Count 159 (150-375) k/mm3 MPV 11.2 H (7.4-10.4) fl Immature Gran % (Auto) 0.4 (0-0.5) % Neut % (Auto) 86.0 H (45.5-73.1) % Lymph % (Auto) 7.0 L (18.3-44.2) % Talbot % (Auto) 3.4 (2.6-8.5) % Eos % (Auto) 2.9 (0-4.4) % Baso % (Auto) 0.3 (0.2-1.2) % Lymph # (Auto) 0.53 L (0.9-3.2) K/mm3 Talbot # (Auto) 0.3 (0.1-0.6) K/mm3 Eos # (Auto) 0.2 (0-0.3) K/mm3 Baso # (Auto) 0.0 (0.0-0.1) K/mm3 Abs Immat Gran (auto) 0.03 (0.00-0.031) K/mm3 Absolute Neuts (auto) 6.5 (1.3-6.7) K/mm3 Absolute Nucleated RBC 0.000 (0.0-0.012) K/mm3 Band Neutrophils % Not Reportable Nucleated RBC % 0.0 (0.0-0.2) % Platelet Estimate Adequate (Adequate) Hypochromasia 1+ Schistocytes None seen PT 13.3 (11.1-14.7) Seconds INR 1.0 APTT 34.9 (22.3-36.8) Seconds Sodium 144 (137-145) mmol/L Potassium 4.2 (3.4-5.0) mmol/L Chloride 101 (98-107) mmol/L Carbon Dioxide 36 H (22-30) mmol/L Anion Gap 7 (4-12) mmol/L BUN 28 H (9-20) mg/dL Creatinine 1.77 H (0.7-1.3) mg/dL Estim Creat Clear Calc 33 ml/min Estimated GFR 38 L (59 - ) Glucose 100 (65-110) mg/dL Lactic Acid 0.5 L (0.7-2.0) mmol/L Calcium 9.2 (8.4-10.2) mg/dL Total Bilirubin 0.5 (0.2-1.3) mg/dL AST 31 (17-59) U/L ALT 13 (6-50) U/L Alkaline Phosphatase 113 (38-126) U/L Troponin I 0.015 (0.000-0.034) ng/mL C-Reactive Protein < 0.5 (<1.0) mg/dL Total Protein 8.0 (6.3-8.2) g/dL Albumin 4.2 (3.5-5.1) g/dL ABG Data ABG results: 03/13/25 07:39 Puncture Site Left radial ABG pH 7.416 ABG pCO2 57.2 H ABG pO2 79.1 L ABG PO2/FiO2 Ratio 2.20 ABG HCO3 35.9 H ABG O2 Saturation 95.6 ABG O2 Content 14.3 L ABG Base Excess 9.8 A-a Gradient 111.2 Oxyhemoglobin 94.5 Total Hemoglobin 10.7 L O2 Delivery Device Nasal cannula O2 Liters/Min 4.0 FiO2 36 Imaging Data Radiologist's impression: Impressions Chest X-Ray 03/13/25 08:56 Impression: 1: Stable chronic interstitial lung disease with chronic left pleural thickening/effusion. No significant interval change. Chest CTA 03/13/25 09:16 IMPRESSION: 1. No evidence for pulmonary embolism in the central pulmonary arteries. Evaluation of peripheral pulmonary arteries limited. 2: Severe emphysema with bronchiectasis and mucous plugging. 3: Left-sided pulmonary nodules measuring 10 mm or less. Cannot exclude primary bronchogenic carcinoma or metastatic disease versus infectious/inflammatory process. 4: Patchy left lower lobe consolidation which may represent atelectasis, aspiration related inflammation or pneumonia. 5: Mediastinal and hilar lymphadenopathy which can be reactive or related to prior granulomatous disease or chronic inflammation. Differential diagnosis includes metastatic disease, smoking-related lymph node hyperplasia lymphoma. Critical Care Time Critical Care Time Critical Care Time: No Discharge Plan Discharge Clinical Impression: Hemoptysis, unspecified Patient Disposition: Still a Patient Condition: Stable
--- NOTE | 2025-03-13 07:14 | ECG_ITS ---
Test Date: 2025-03-13 07:29:15 Measurements Intervals [place] Rate: 72 P: 73 SC: 186 QRS: 13 QRSD: 112 T: -5 QT: 390 QTc: 427 Interpretive Statements ELECTRONIC VENTRICULAR PACEMAKER ATYPICAL ECG Compared to ECG 09/04/2024 15:13:26 No significant changes Electronically Signed On 03-13-2025 10:07:37 CDT by Noah Chase M.D.
--- NOTE | 2025-03-13 07:32 | PCRCNOTE ---
Had to wait to draw until nursing had drawn their blood.
[2025-03-13 07:41] LABS: Alveolar/Arterial O2 Gradient 111.2 mmHg; Fractional Inspired Oxygen 36 %; HCO3 ABG 35.9 mEq/l (22.0-26.0); Oxygen Content ABG 14.3 %vol (16.0-22.0); Oxygen Saturation ABG 95.6 % (95.0-100.0); PCO2 ABG 57.2 mmHg (35.0-45.0); PO2 ABG 79.1 mmHg (80.0-100.0); PO2 FiO2 Ratio Arterial Blood 2.20 %
[2025-03-13 07:43] LABS: Liters per Minute 4.0 LPM; Modified Allen's Test Pass; Site Drawn LEFT RADIAL
--- OUTSIDE RECORDS SUMMARY | 2025-03-13 07:52 | XMS_ITS | Patient Health Record ---
Author Organization [facility] Billing Info Address [address] [place] [id number] Support Name Relationship Address Phone Meggan Hill Emergency Contact [address] [place] [address] Freddy Hill Guarantor Unknown [phone] Reason For Referral No Information Plan Of Treatment No Information Insurance Providers Payer Name Payer Address Payer Phone Subscriber Number Group Number Insured Name Patient Relationship to Insured Coverage Start Date Coverage End Date BCBSUT [employer]ANY PINEDA [address] [address] [place], [place] [id number] Freddy Hill Self - patient is the insured 5 5 [employer] OPEN ACCESS PLUS O POS [address] KAREN BOBO [id number] Freddy Hill Self - patient is the insured 2 0
--- OUTSIDE RECORDS SUMMARY | 2025-03-13 07:52 | XMS_ITS | Clinical Summary ---
Author Organization [facility] Address [address] [place] [phone] Phone Care Team Providers Care Regroover Name Role Phone Ranulfo Romo Primary Care Provider [phone] Allergies Active Allergy Reactions Criticality Noted Date [...] 2024 08/12/2021, 11/26/2020, 10/22/2020 Influenza Vaccine (#1) 2025 04/24/2021 Insurance [employer] MEDICARE Care Teams Regroover Relationship Specialty Start Date End Date Ranulfo Romo DO PCP - General Family Medicine 12/30/21
--- OUTSIDE RECORDS SUMMARY | 2025-03-13 07:52 | XMS_ITS | Encounter Summary ---
Author Organization [facility] Address [facility] [place] [address] Care Team Providers Care Panama Hat Blocker Name Role Phone Ranulfo Romo DO Primary Care Provider [phone] Josiah Lay MD Unavailable Daniela Hilario [facility] Unavailable + [phone] Encounter Details Date Type Department Care Team (Late st Contact Info) Description 04/05/2022 [place] [facility] Patient Accounts [address] [place] [address] [facility] Provider Auto Pay Payment Plan Social History Tobacco Use Types Packs/Day Years Used Date Smoking Tobacco: Former Cigarettes 2 40 1 970 - 2009 Smokeless Tobacco: Never Alcohol Use Standard Drinks/Week Comments Not Currently 0 (1 standard drink = 0.6 oz pur e alcohol) Sex and Gender Information Value Date Recorded Sex Assigned at Not on file Legal Sex Male 3:43 PM EQUIPMENT VALIDATION SPECIALIST Gender Identity Male 10/27/2021 1:50 PM EQUIPMENT VALIDATION SPECIALIST Sexual Orientation Straight 10/27/2021 1: 50 PM EQUIPMENT VALIDATION SPECIALIST documented as of this encounter Plan of Treatment Not on file documented as of this encounter Visit Diagnoses Not on filedocumented in this encounter Care Teams Panama Hat Blocker Relationship Specialty Start Date End Date Ranulfo Romo DO [address] [address] [place] [address] [place] [address] PCP - General FAMILY PRACTICE 03/30/22 Josiah Lay MD [address] [place] [address] CARDIOVASCULAR DISEASE 03/30/22 Daniela Hilario, SPORTS ATTORNEY- [facility] [address] [place] [address] Nurse Practitioner Family 03/30/22 documented as of this encounter
--- OUTSIDE RECORDS SUMMARY | 2025-03-13 07:52 | XMS_ITS | Clinical Summary ---
Author Organization [facility] Address [address] [place] [address] Care Team Providers Care Financial Services Director Name Role Phone Ranulfo Romo Primary Care Provider [phone] Josiah Lay MD Unavailable Daniela Hilario [facility]- Unavailable +- [phone] Allergies No known active allergies Medications Multiple [...] Active Problems No known active problems Immunizations Immunization Administration Dates Next Due [facility] COVID-19 (ORIGINAL FO RMULATION, PURPLE CAP) mRNA, [...] file Legal Sex Male 3:43 PM INDUSTRIAL ENG Gender Identity Male 10/27/2021 1:50 PM INDUSTRIAL ENG Sexual Orientation Straight 10/27/2021 1: 50 PM INDUSTRIAL ENG Last Filed Vital Signs Vital Sign Reading [...] and Td Vaccines (1 - Tdap) 1970 Pneumococcal Vaccine: 50+ Years (1 of 1 - PCV) 2001 04/22/2012 Zoster Vaccines (1 of 2) 2001 COVID-19 Vaccine ( - season) 2024 02/26/2022, [...] patient's age to complete this topic Insurance [facility] Advance Directives Documents on File Type Date Recorded Patient International Trade Teacher Expl anation Power of Associate Professor Of English 11/10/2021 POA for [facility] Care Care Teams Financial Services Director Relationship Specialty Start Date End Date Ranulfo Romo DO [address] [facility] [address] [place] [address] PCP - General FAMILY PRACTICE 03/30/22 Josiah Lay MD [address] [facility] [address] [place] [address] CARDIOVASCULAR DISEASE 03/30/22 Daniela Hilario, PUBLIC AFFAIRS OFFICER- [address] [facility] [address] [place] [address] Nurse Practitioner Family 03/30/22
--- OUTSIDE RECORDS SUMMARY | 2025-03-13 07:52 | XMS_ITS | Clinical Summary ---
Author Organization [facility] [address] Address [address] [place] [address] Care Team Providers Care Social Work Administrator Name Role Phone Daniela Hilario AMUSEMENT OR RECREATION CARD CHECKER Unavailable [phone] Ranulfo Romo DO Primary Care Provider [phone] Allergies Active Allergy Reactions Criticality Noted Date [...] mouth 2 (two) times a day Active amLODIPine (NORVASC) 10 mg tablet Take [...] DAILY 100 tablet 2 10/25/19 25 Active cilostazoL (PLETAL) 50 mg tablet TAKE 1 TABLET BY MOUTH TWICE DAILY 200 tablet 2 03/11/20 25 Active atorvastatin (LIPITOR) 80 mg tablet TAKE 1 TABLET BY MOUTH EVERY NIGHT 100 tablet 2 03/11/[address] (PROTONIX) 40 mg EC tablet TAKE 1 TABLET BY MOUTH DAILY 100 tablet 2 03/11/20 25 Active cilostazoL (PLETAL) 50 mg tablet TAKE 1 TABLET BY MOUTH TWICE DAILY 200 tablet 3 05/28/20 [address] (PROTONIX) 40 mg EC tablet TAKE 1 TABLET BY MOUTH DAILY 100 tablet 1 11/23/19 25 025 Discontinued atorvastatin (LIPITOR) 80 mg tablet TAKE 1 TABLET BY MOUTH EVERY NIGHT 100 tablet 01/29/20 25 025 Discontinued Active Problems Problem Noted Date Diagnosed Date 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 08/13/2024 Angina pectoris, unstable 01/11/2024 Abnormal stress test 01/11/2024 Pain in both lower extremities 12/30/2021 Overview (12/30/2021): Added automatically from request for surgery [id number] ALFREDO (acute kidney injury) 06/16/2021 Assessment & [...] 06/10/2021 Assessment & Plan (07/10/2021 8:59 PM REVENUE RESEARCH ANALYST): - Currently receiving Ceftriaxone 2 g IV [...] Encounters Date Type Department Care Team Description 03/06/2025 3:22 PM CDT - 03/06/2025 11:59 PM CDT Hospital Encounter [facility] [address] [place] [address] Diagnosis unknown Discharge Disposition: Discharge to home or self care 03/05/2025 Telephone [facility] Infectious Diseases [address] [place] [phone] Danielle Gonsalez 03/01/2025 Results Follow-Up [facility] Infectious Diseases [address] [place] [phone] Vicki Hahn NP Mycobacteriology (AFB) culture and acid-fast stain Sputum Sputum 02/01/2025 Telephone [facility] Infectious Diseases [address] [place] [phone] Lilo, Afia 01/30/2025 7:45 AM CDT Ancillary Procedure 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; Ventricular fibrillation (HCC); NSVT (nonsustained ventricular tachycardia) (HCC) 01/15/2025 Telephone [facility] Infectious Diseases [address] [place] [phone] Nita Miller CMA 01/09/2025 Telephone [facility] Infectious Diseases [address] [place] [phone] Maine Esquivel CMA 01/08/2025 12:20 PM CDT - 01/08/2025 11:59 PM CDT Hospital Encounter [address] [address] Pulmonary mycobacterial infection (HCC) Discharge Disposition: Discharge to home or self care 01/08/2025 9:20 AM CDT Office Visit [facility] Infectious Diseases [address] [place] [phone] Vicki Hahn NP Pulmonary mycobacterial infection (HCC) (Primary Dx); 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 Results Follow-Up [facility] Infectious Diseases [address] [place] [phone] Vicki Hahn NP Mycobacteriology (AFB) culture and acid-fast stain Sputum Sputum 12/14/2024 Telephone [facility] Infectious Diseases [address] [place] [address] [place] [phone] Nahomy Sorto RMA from Last 3 [...] disease) stage 3, GFR 30-59 ml/min (HCC) Sleep apnea Asthma Carotid stenosis s/p right [...] CDT Gender Identity Male 08/12/2022 2:14 PM REVENUE RESEARCH ANALYST Sexual Orientation Not on file Obstetrics History Last Filed Vital Signs Vital Sign Reading Time Taken Comments Blood Pressure 176/68 01/08/2025 9:26 AM CDT Pulse 73 01/08/2025 9:26 AM CDT Temperature 36.7 C (98 F) 01/08/2025 9:26 AM CDT Respiratory Rate 24 01/27/2024 8:49 AM CDT Oxygen Saturation 91% 09/18/2024 10: 22 AM REVENUE RESEARCH ANALYST Inhaled Oxygen Concentration - - Weight 68.4 kg (150 lb 12.7 oz) 025 10:22 AM REVENUE RESEARCH ANALYST Height 172.7 cm (5' 8) 04/25/2024 12:5 [...] Fall Risk Assessment 01/26/2025 01/27/2024 Influenza Vaccine (#1) 2025 05/04/2021, 2020 Hepatitis C Screening Completed 09/18/2024 Medical Devices Implanted Type Area Urgent Care Technician Device Identifier Shelf Expiration Date Model / Serial / Lot Pacemaker Pacemaker Chest Procedures Procedure Name Priority Date/Time Associated Diagnosis Comments CT BODY OUTSIDE CONSULT Routine 03/06/20 25 3:22 PM CDT Diagnosis unknown MYCOBACTERIOLOGY AFB CULTURE AND ACID-FAST STAIN Routine 01/08/2025 10:15 AM CDT Pulmonary mycobacterial infection (HCC) HEPATITIS C ANTIBODY Routine 09/18/2024 11:41 AM REVENUE RESEARCH ANALYST Other specified respiratory disorders from Last 3 Months or Most Recently Relevant to Health Maintenance Results * CT Body Outside Consult (03/06/2025 3:22 PM CDT) Anatomical Region Laterality Modality Body N/A Computed Tomogra phy 03/07/2025 8:41 AM CDT Impressions 03/07/2025 10:06 AM CDT 1. Areas of tree in bud nodularity and bronchiectasis with bronchial wall thickening most pronounced in the left lower lobe likely represents sequela of atypical mycobacteria infection with superimposed left lower lobe aspiration. 2. Hyperattenuating exophytic lesions arising from the kidneys are indeterminate and not previously evaluated. A multiphase renal MRI can be completed for further evaluation if clinically indicated. The findings, conclusions and recommendations within this report do not replace the initial findings, conclusions and recommendations made at the facility where the study was performed based upon the imaging and clinical condition at that time. Comparison with the prior report and clinical history is necessary. The provided images may or may not represent the [place] source data set and thus may contain changes that may lower the accuracy of this second-opinion interpretation. Dictated by: John Roberts M.D. The radiology attending physician has personally reviewed this study, and had reviewed and/or edited this written report and agrees with it. Electronically signed by: Carlos Ruiz M.D. Narrative 03/07/2025 10:06 AM CDT EXAMINATION: RADIOLOGY CONSULTATION ON OUTSIDE IMAGING STUDY STUDY INITIALLY PERFORMED: 02/18/2025 at [facility]. TYPE OF STUDY: Multiple CT images of [...] Outside Image Sharing Service DATE OF CONSULTATION: 03/07/2025 8:18 AM HISTORY: Concern for mycobacteria infection COMPARISON: 07/18/2024 FINDINGS: Left chest wall pacer defibrillator device with leads terminating in the right atrium and right ventricle. Biapical pleural-parenchymal scarring. Background of moderate emphysema. Redemonstration of tree-in-bud nodularity and bronchiectasis with bronchial wall thickening most pronounced in the lung bases, especially in the left lower lobe. There has been increased mucoid impaction when compared to prior examination dated 07/18/2024. The central airways are patent. No pleural effusion or pneumothorax. No supraclavicular or axillary lymphadenopathy. Stable mildly prominent mediastinal lymphadenopathy is thought to be reactive. The heart is normal in size. No pericardial effusion. Multivessel coronary artery calcifications noted. There is atherosclerotic vascular calcifications noted throughout the aortic arch. Stable aneurysm of the aortic arch. There is no acute abnormalities in the imaged upper abdomen. Of note there is severe atherosclerotic vascular calcifications noted at the superior mesenteric artery origin likely causing some degree of stenosis however this is not well evaluated on this noncontrast examination. Bilateral hyperattenuating exophytic lesions off the kidneys are indeterminate and may represent hemorrhagic or proteinaceous cysts. Stable prominence of the main pancreatic duct when compared to prior examinations and back to 01/18/2023. Procedure Note Carlos Ruiz MD - 03/07/2025 EXAMINATION: RADIOLOGY CONSULTATION ON OUTSIDE IMAGING STUDY STUDY INITIALLY PERFORMED: 02/18/2025 at [facility]. TYPE OF STUDY: Multiple CT images of [...] Outside Image Sharing Service DATE OF CONSULTATION: 03/07/2025 8:18 AM HISTORY: Concern for mycobacteria infection COMPARISON: 07/18/2024 FINDINGS: Left chest wall pacer defibrillator device with leads terminating in the right atrium and right ventricle. Biapical pleural-parenchymal scarring. Background of moderate emphysema. Redemonstration of tree-in-bud nodularity and bronchiectasis with bronchial wall thickening most pronounced in the lung bases, especially in the left lower lobe. There has been increased mucoid impaction when compared to prior examination dated 07/18/2024. The central airways are patent. No pleural effusion or pneumothorax. No supraclavicular or axillary lymphadenopathy. Stable mildly prominent mediastinal lymphadenopathy is thought to be reactive. The heart is normal in size. No pericardial effusion. Multivessel coronary artery calcifications noted. There is atherosclerotic vascular calcifications noted throughout the aortic arch. Stable aneurysm of the aortic arch. There is no acute abnormalities in the imaged upper abdomen. Of note there is severe atherosclerotic vascular calcifications noted at the superior mesenteric artery origin likely causing some degree of stenosis however this is not well evaluated on this noncontrast examination. Bilateral hyperattenuating exophytic lesions off the kidneys are indeterminate and may represent hemorrhagic or proteinaceous cysts. Stable prominence of the main pancreatic duct when compared to prior examinations and back to 01/18/2023. IMPRESSION: 1. Areas of tree in bud nodularity and bronchiectasis with bronchial wall thickening most pronounced in the left lower lobe likely represents sequela of atypical mycobacteria infection with superimposed left lower lobe aspiration. 2. Hyperattenuating exophytic lesions arising from the kidneys are indeterminate and not previously evaluated. A multiphase renal MRI can be completed for further evaluation if clinically indicated. The findings, conclusions and recommendations within this report do not replace the initial findings, conclusions and recommendations made at the facility where the study was performed based upon the imaging and clinical condition at that time. Comparison with the prior report and clinical history is necessary. The provided images may or may not represent the [place] source data set and thus may contain changes that may lower the accuracy of this second-opinion interpretation. Dictated by: John Roberts M.D. The radiology attending physician has personally reviewed this study, and had reviewed and/or edited this written report and agrees with it. Electronically signed by: Carlos Ruiz M.D. Vicki Hahn NP IM CT PROCEDURES Final R esult * (ABNORMAL) Mycobacteriology (AFB) culture and acid-fast stain Sputum Sputum (01/08/2025 10:15 AM CDT) Direct Specimen Exam Stain: Inconclusive Report Final Report: Culture contaminated. No further examination possible. Unable to rule out Mycobacteria. (.) [facility] Sputum (Sputum) 01/08/2025 1 0:15 AM CDT 01/08/2025 1:17 PM CDT Narrative [facility] - 01/29/2025 2:33 PM CDT Testing performed by [facility] ([phone]). Vicki Hahn NP LAB MICROBIOLOGY - GENERA L ORDERABLES Final Result Performing Organization Address City/State/[facility] Co de Phone Number [facility] Department [place] [address] * Hepatitis C antibody Blood (09/18/2024 11:41 AM REVENUE RESEARCH ANALYST) Hep C Ab Nonreactive Nonreactive Comment:Antibodies to HCV no t detected. Does NOT exclude the possibility of recent exposure to HCV. Current interpretive data was last revised on 22 Blood 09/18/2024 11:4 1 AM REVENUE RESEARCH ANALYST 09/18/2024 3:56 PM REVENUE RESEARCH ANALYST Vicki Hahn NP LAB MICROBIOLOGY - GENERA L ORDERABLES Final Result Performing Organization Address [facility] Co de Phone Number [facility] Department [place] [address] from Last 3 Months or Most Recently Relevant to Health Maintenance Insurance [employer] MEDICARE ADVANTAGE [facility] MED[facility] Address: [facility] [address] [place] [address] [employer] MEDICARE ADVANTAGE [facility] MED[facility] Address: [address] [address] [place] [address] [facility] CHOICE PLUS [facility] HMO/PPO Address: [address] [address] [place] [address] MEDICARE [facility] MEDICARE ADVANTAGE [facility] MEDIC[facility] Address: [address] [address] Advance Directives For more information, please contact: [phone] * Full Code (Latest Code Status on File) Date Activated Date Inactivated Comments 06/12/2021 8:06 PM 06/23/2021 5:12 PM * Full Code Date Activated Date Inactivated Comments 06/10/2021 9:01 PM 06/12/2021 8:06 PM Care Teams Social Work Administrator Relationship Specialty Start Date End Date Ranulfo Romo DO PCP - General Family Medicine 04/08/22 Daniela Hilario NP Nurse Practitioner Nurse Practitioner 03/26/22
--- OUTSIDE RECORDS SUMMARY | 2025-03-13 07:52 | XMS_ITS | Encounter Summary ---
Author Organization [facility] Address [address] [facility] [address] [place] [address] Phone Care Team Providers Care Customer Service Technician Name Role Phone Daniela Hilario NP Unavailable [phone] Ranulfo Romo DO Primary Care Provider [phone] Encounter Details Date Type Department Care Team (Latest Contact Info) Description 03/01/2025 Results Follow-Up [facility] Infectious Diseases [address] [place] [address] [address] [place] [address] Vicki Hahn, SHASHANK [address] [place] [address] Mycobacteriology (AFB) culture and acid-fast stain Sputum [...] CDT Gender Identity Male 08/12/2022 2:14 PM JET WIPER Sexual Orientation Not on file documented as of this encounter Plan of Treatment Not on file documented as of this encounter Visit Diagnoses Not on filedocumented in this encounter Care Teams Customer Service Technician Relationship Specialty Start Date End Date Ranulfo Romo DO PCP - General Family Medicine 04/08/22 Daniela Hilario NP Nurse Practitioner Nurse Practitioner 03/26/22 documented as of this encounter
--- OUTSIDE RECORDS SUMMARY | 2025-03-13 07:52 | XMS_ITS | Encounter Summary ---
Author Organization [facility] Address [address] [place] [address] Phone Care Team Providers Care Freezer Tunnel Operator Name Role Phone Daniela Hilario BREAD WRAPPER OPERATOR Unavailable [phone] Ranulfo Romo DO Primary Care Provider [phone] Encounter Details Date Type Department Care Team [...] Gender Identity Male 08/12/2022 2:14 PM HAND UPPER AND BOTTOM LACER Sexual Orientation Not on file documented as of this encounter Plan of Treatment Not on file documented as of this encounter Procedures Procedure Name Priority Date/Time Associated Diagnosis Comments SCAN - LABS 02/17/2024 documented in this encounter Results * SCAN - LABS (02/17/2024) us Provider Scanning Final Result documented in this encounter Visit Diagnoses Not on filedocumented in this encounter Care Teams Freezer Tunnel Operator Relationship Specialty Start Date End Date Ranulfo Romo DO PCP - General Family Medicine 04/08/22 Daniela Hilario NP Nurse Practitioner Nurse Practitioner 03/26/22 documented as of this encounter
--- OUTSIDE RECORDS SUMMARY | 2025-03-13 07:52 | XMS_ITS | Encounter Summary ---
Author Organization [facility] Address [address] [place] [address] Phone Care Team Providers Care Field Operations Supervisor Name Role Phone Daniela Hilario BODY SHOP FLOORPERSON Unavailable [phone] Ranulfo Romo DO Primary Care Provider [phone] Encounter Details Date Type Department Care Team [...] CDT Gender Identity Male 08/12/2022 2:14 PM COMMUNICATIONS MARKETING INTERN Sexual Orientation Not on file documented as of this encounter Plan of Treatment Not on file documented as of this encounter Procedures Procedure Name Priority Date/Time Associated Diagnosis Comments SCAN - LABS 11/22/2023 documented in this encounter Results * SCAN - LABS (11/22/2023) us Provider Scanning Final Result documented in this encounter Visit Diagnoses Not on filedocumented in this encounter Care Teams Field Operations Supervisor Relationship Specialty Start Date End Date Ranulfo Romo DO PCP - General Family Medicine 04/08/22 Daniela Hilario NP Nurse Practitioner Nurse Practitioner 03/26/22 documented as of this encounter
--- OUTSIDE RECORDS SUMMARY | 2025-03-13 07:52 | XMS_ITS | Encounter Summary ---
Author Organization [facility] Address [address] [place] [address] Phone Care Team Providers Care Metal Control Coordinator Name Role Phone Daniela Hilario BOOTH MANAGER Unavailable [phone] Ranulfo Romo DO Primary Care Provider [phone] Encounter Details Date Type Department Care Team [...] CDT Gender Identity Male 08/12/2022 2:14 PM WET PROCESS TECHNICIAN Sexual Orientation Not on file documented as of this encounter Plan of Treatment Not on file documented as of this encounter Procedures Procedure Name Priority Date/Time Associated Diagnosis Comments SCAN - LABS 03/07/2024 documented in this encounter Results * SCAN - LABS (03/07/2024) us Provider Scanning Final Result documented in this encounter Visit Diagnoses Not on filedocumented in this encounter Care Teams Metal Control Coordinator Relationship Specialty Start Date End Date Ranulfo Romo DO PCP - General Family Medicine 04/08/22 Daniela Hilario NP Nurse Practitioner Nurse Practitioner 03/26/22 documented as of this encounter
--- OUTSIDE RECORDS SUMMARY | 2025-03-13 07:52 | XMS_ITS | Patient Health Record ---
Author Organization [facility] Address [address] [place] [address] Care Team Providers Care Property Management Accountant Name Role Phone Ari Bailey Unavailable [phone] Reason For Referral No Information Immunizations Vaccine Route Administration Date Status Comme nts PuneetVIMoriah - Pfizer IM Intramuscular 10/22/2020 Administered Plan Of Treatment No Information Insurance Providers Payer Name Payer Address Payer Phone Subscriber Number Group Number Insured Name Patient Relationship to Insured Coverage Start Date Coverage End Date [facility] ( [facility] ) [address] [address] [place], [place] [id number] Freddy Hill Self - patient is the insured
--- OUTSIDE RECORDS SUMMARY | 2025-03-13 07:52 | XMS_ITS | Continuity of Care Document ---
Author Organization [facility] Address [address] [place] [address] Phone Care Team Providers Care Direct Care Supervisor Name Role Phone Unavailable Unavailable Unavailable Procedures Procedure Date OFFICE CONSULTATION ELECTROCARDIOGRAM, COMPLETE Advance Directives Directive Yes / No Effective Date File Name No Information Encounters Encounter Description Practice Location Reason(s) For Visit Diagnoses Date Provider Providers Copied on Encounter OFFICE CONSULTATION [facility] , [address], [place], [place], [id number], [place] tel:[phone] [facility] No Information No Information Referring Provider: Arjun Shankar O, [address], [place], [address]. tel:[phone] Family History Family Member Type Diagnosis Age At Onset No Information Payers Payer name Insurance type Covered libertarian ID [employer], Located Within [facility] [address] CI [id number] [place] [id number] CI [id number] Social History Type Description Quantity Date Captured [...]
--- OUTSIDE RECORDS SUMMARY | 2025-03-13 07:52 | XMS_ITS | Encounter Summary ---
Author Organization [facility] Facility Care Team Providers Care Equine Internship Name Role Phone Ross Espinosa MD Primary Care Provider [phone] Encounter Details Date Type Department Care Team (Late st Contact Info) Description 06/06/2021 3:37 PM CDT Hospital Encounter Yamilet Faustin MD [address] [place] [address] Social History Tobacco Use Types Packs/Day Years [...] CDT Gender Identity Male 08/12/2022 2:14 PM TREE FARMER Sexual Orientation Not on file documented as of this encounter Functional Status documented as of this encounter Plan of Treatment Not on file documented as of this encounter Visit Diagnoses Not on filedocumented in this encounter Care Teams Equine Internship Relationship Specialty Start Date End Date Ross Espinosa MD [address] [place] [address] PCP - General Internal Medicine 03/24/21 06/09/21 documented as of this encounter
--- OUTSIDE RECORDS SUMMARY | 2025-03-13 07:52 | XMS_ITS | Referral Summary ---
Author Organization [facility] [address] Address [address] [place] [address] Care Team Providers Care Lease Purchase Driver Name Role Phone Daniela Hilraio NP Unavailable [phone] Ranulfo Romo DO Primary Care Provider [phone] Encounters Date Type Department Care Team Description 03/06/2025 3:22 PM CDT - 03/06/2025 11:59 PM CDT Hospital Encounter [facility] [address] [place] [address] Diagnosis unknown Discharge Disposition: Discharge to home or self care 03/05/2025 Telephone [facility] Infectious Diseases [address] [place] [address] [place] [phone] Danielle Gonsalez 03/01/2025 Results Follow-Up [facility] Infectious Diseases [address] [place] [address] [place] [phone] Vicki Hahn NP Mycobacteriology (AFB) culture and acid-fast stain Sputum Sputum 02/01/2025 Telephone [facility] Infectious Diseases [address] [place] [address] [place] [phone] Afia Nagy 01/30/2025 7:45 AM CDT Ancillary Procedure [facility] Medical [facility] Cardiology [address] [facility] [address] [place] [phone] NICM (nonischemic cardiomyopathy) (HCC); 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; Ventricular fibrillation (HCC); NSVT (nonsustained ventricular tachycardia) (HCC) 01/15/2025 Telephone [facility] Infectious Diseases [address] [place] [phone] Nita Miller, [facility] 01/09/2025 Telephone [facility] Infectious Diseases [address] [place] [phone] Maine Esquivel, [facility] 01/08/2025 12:20 PM CDT - 01/08/2025 11:59 PM CDT Hospital Encounter [facility] [address] [place] [address] Pulmonary mycobacterial infection (HCC) Discharge Disposition: Discharge to home or self care 01/08/2025 9:20 AM CDT Office Visit [facility] Infectious Diseases [address] [place] [phone] Vicki Hahn, SHASHANK Pulmonary mycobacterial infection (HCC) (Primary Dx); 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 Results Follow-Up [facility] Infectious Diseases [address] [place] [phone] Vicki Hahn, SHASHANK Mycobacteriology (AFB) culture and acid-fast stain Sputum Sputum 12/14/2024 Telephone [facility] Infectious Diseases [address] [place] [phone] Nahomy Sorto RMA from Last 3 Months [...] mg total) by nebulization as needed 05/05/20 Active albuterol HFA (PROVENTIL HFA,VENTOLIN HFA,PROAIR HFA) [...] (12/30/2021): Added automatically from request for surgery [id number] ALFREDO (acute kidney injury) 06/16/2021 Assessment & [...] 06/10/2021 Assessment & Plan (07/10/2021 8:59 PM CHIEF TELEPHONE OPERATOR): - Currently receiving Ceftriaxone 2 g IV [...] Symptomatic Bradycardia. DOI 05/02/2019-Dr Zenia Good ([place]). [facility]link remote. Assessment & Plan (06/11/2021 8:06 [...] CDT Gender Identity Male 08/12/2022 2:14 PM CHIEF TELEPHONE OPERATOR Sexual Orientation Not on file Last Filed Vital Signs Vital Sign Reading Time Taken Comments Blood Pressure 176/68 01/08/2025 9:26 AM CDT Pulse 73 01/08/2025 9:26 AM CDT Temperature 36.7 C (98 F) 01/08/2025 9:26 AM CDT Respiratory Rate 24 01/27/2024 8:49 AM CDT Oxygen Saturation 91% 09/18/2024 10: 22 AM CHIEF TELEPHONE OPERATOR Inhaled Oxygen Concentration - - Weight 68.4 kg (150 lb 12.7 oz) 025 10:22 AM CHIEF TELEPHONE OPERATOR Height 172.7 cm (5' 8) 04/25/2024 12:5 7 PM CDT Body Mass Index 22.93 04/25/2024 12:57 PM CDT Plan of Treatment Not on file Medical Devices Implanted Type Area Manager Nursing Device Identifier Shelf Expiration Date Model / Serial / Lot Pacemaker Pacemaker Chest Procedures Procedure Name Priority Date/Time Associated Diagnosis Comments CT BODY OUTSIDE CONSULT Routine 03/06/20 25 3:22 PM CDT Diagnosis unknown MYCOBACTERIOLOGY AFB CULTURE AND ACID-FAST STAIN Routine 01/08/2025 10:15 AM CDT Pulmonary mycobacterial infection (HCC) HEPATITIS C ANTIBODY Routine 09/18/2024 11:41 AM CHIEF TELEPHONE OPERATOR Other specified respiratory disorders from Last 3 [...] images may or may not represent the mi'kmaq source data set and thus may contain [...] IMAGING STUDY STUDY INITIALLY PERFORMED: 02/18/2025 at [facility]. TYPE OF STUDY: Multiple CT [...] IMAGING STUDY STUDY INITIALLY PERFORMED: 02/18/2025 at [facility]. TYPE OF STUDY: Multiple CT [...] images may or may not represent the mi'kmaq source data set and thus may contain changes that may lower the accuracy of this second-opinion interpretation. Dictated by: John Roberts M.D. The radiology attending physician has personally reviewed this study, and had reviewed and/or edited this written report and agrees with it. Electronically signed by: Carlos Ruiz M.D. Vicki Hahn NP IMG CT PROCEDURES Final R esult * (ABNORMAL) Mycobacteriology (AFB) culture and acid-fast stain Sputum Sputum (01/08/2025 10:15 AM CDT) Direct Specimen Exam Stain: Inconclusive Report Final Report: Culture contaminated. No further examination possible. Unable to rule out Mycobacteria. (.) [facility] Sputum (Sputum) 01/08/2025 1 0:15 AM CDT 01/08/2025 1:17 PM CDT Narrative [facility] - 01/29/2025 2:33 PM CDT Testing performed by [facility] Microbiology Laboratory ([phone]). Vicki Hahn NP LAB MICROBIOLOGY - GENERA L ORDERABLES Final Result Performing Organization Address City/[facility] [address]/[facility] Co de Phone Number [facility] Department [place] [address] * Hepatitis C antibody Blood (09/18/2024 11:41 AM CHIEF TELEPHONE OPERATOR) Hep C Ab Nonreactive Nonreactive Comment:Antibodies to HCV no t detected. Does NOT exclude the possibility of recent exposure to HCV. Current interpretive data was last revised on 22 Blood 09/18/2024 11:4 1 AM CHIEF TELEPHONE OPERATOR 09/18/2024 3:56 PM CHIEF TELEPHONE OPERATOR Vicki Hahn NP LAB MICROBIOLOGY - GENERA L ORDERABLES Final Result Performing Organization Address City/[facility] [address]/[facility] de Phone Number [facility] [place] [address] from Last 3 Months or Most Recently Relevant to Health Maintenance Insurance [facility] ANDREA MARTIN [address] MEDICARE [facility] MED[facility] Address: [address] [address] [facility] MEDICARE [facility] MED[facility] Address: [address] [address] [place] [address] [facility] CHOICE [facility]US [facility] HMO/PPO Address: [address] [address] [place] [address] MEDICARE [facility] MEDICARE [facility]ANTAGE [facility] MEDIC[facility] Address: [address] [address] Advance Directives For more information, please contact: [phone] * Full Code (Latest Code Status on File) Date Activated Date Inactivated Comments 06/12/2021 8:06 PM 06/23/2021 5:12 PM * Full Code Date Activated Date Inactivated Comments 06/10/2021 9:01 PM 06/12/2021 8:06 PM Care Teams Lease Purchase Driver Relationship Specialty Start Date End Date Ranulfo Romo DO PCP - General Family Medicine 04/08/22 Daniela Hilario NP Nurse Practitioner Nurse Practitioner 03/26/22
[2025-03-13 08:09] LABS: Hematocrit 36.1 % (42.0-52.0); Hemoglobin 10.3 g/dL (14.0-18.0); Immature Granulocyte Percent A 0.4 % (0-0.5); Lymphocytes Absolute Auto 0.53 K/mm3 (0.9-3.2); Mean Corpuscular HGB Conc 28.5 g/dl (32-36); Mean Corpuscular Hemoglobin 25.3 pg (26-34); Mean Corpuscular Volume 88.7 fl (80-100); Nucleated Red Blood Cells Absolute Auto 0.000 K/mm3 (0.0-0.012); Nucleated Red Blood Cells Perc 0.0 % (0.0-0.2); Platelet Count Result 159 k/mm3 (150-375); Red Blood Count 4.07 M/mm3 (4.6-6.20); White Blood Count 7.6 K/mm3 (4.5-10.0)
[2025-03-13 08:14] LABS: INR 1.0; Prothrombin Time 13.3 Seconds (11.1-14.7)
[2025-03-13 08:15] LABS: Partial Thromboplastin Time 34.9 Seconds (22.3-36.8)
[2025-03-13 08:26] LABS: Alanine Aminotransferase 13 U/L (6-50); Albumin Level 4.2 g/dL (3.5-5.1); Alkaline Phosphatase 113 U/L (38-126); Anion Gap 7 mmol/L (4-12); Aspartate Amino Transferase 31 U/L (17-59); Bilirubin,Total 0.5 mg/dL (0.2-1.3); Blood Urea Nitrogen 28 mg/dL (9-20); CRP < 0.5 mg/dL (<1.0); Calcium 9.2 mg/dL (8.4-10.2); Carbon Dioxide 36 mmol/L (22-30); Chloride 101 mmol/L (98-107); Estimated CRCL calculation 33 ml/min; Estimated Glomerular Filt Rate 38; Glucose 100 mg/dL (65-110); Potassium 4.2 mmol/L (3.4-5.0); Sodium 144 mmol/L (137-145); Total Protein 8.0 g/dL (6.3-8.2)
[2025-03-13 08:30] LABS: Troponin I 0.015 ng/mL (0.000-0.034)
[2025-03-13 08:48] LABS: Hypochromasia 1+; Schistocytes None Seen
[2025-03-13] MEDS: SODIUM CHLORIDE 0.9% IV 1,000 ML 999 ML (10:04)
[2025-03-13] MEDS: levoFLOXacin 750 MG/D5W 150 ML 750 MG/150 ML BAG 100 MG IVPB (11:28)
--- NOTE | 2025-03-13 11:57 | PC.NURSE ---
Lunch tray ordered by RN.
--- OUTSIDE RECORDS SUMMARY | 2025-03-13 11:58 | XMS_ITS | Encounter Summary ---
Author Organization [facility] Address [address] [place] [address] Phone Care Team Providers Care Scale Operator Name Role Phone Daniela Hilario LEARNING ENGINEER Unavailable [phone] Ranulfo Romo DO Primary Care Provider [phone] Encounter Details Date Type Department Care Team [...] CDT Gender Identity Male 08/12/2022 2:14 PM ELECTRON MICROSCOPIST Sexual Orientation Not on file documented as of this encounter Plan of Treatment Not on file documented as of this encounter Procedures Procedure Name Priority Date/Time Associated Diagnosis Comments SCAN - LABS 11/22/2023 documented in this encounter Results * SCAN - LABS (11/22/2023) us Provider Scanning Final Result documented in this encounter Visit Diagnoses Not on filedocumented in this encounter Care Teams Scale Operator Relationship Specialty Start Date End Date Ranulfo Romo DO PCP - General Family Medicine 04/08/22 Daniela Hilario NP Nurse Practitioner Nurse Practitioner 03/26/22 documented as of this encounter
--- OUTSIDE RECORDS SUMMARY | 2025-03-13 11:58 | XMS_ITS | Clinical Summary ---
Author Organization [facility] [address] Address [address] [place] [address] Care Team Providers Care Montessori Lead Teacher Name Role Phone Daniela Hilario LOCAL CITY DRIVER Unavailable [phone] Ranulfo Romo DO Primary Care Provider [phone] Allergies Active Allergy Reactions Criticality Noted Date [...] (12/30/2021): Added automatically from request for surgery [id number] ALFREDO (acute kidney injury) 06/16/2021 Assessment & [...] 06/10/2021 Assessment & Plan (07/10/2021 8:59 PM PEER SPECIALIST): - Currently receiving Ceftriaxone 2 g IV [...] - 03/06/2025 11:59 PM CDT Hospital Encounter [facility] [address] [place] [address] Diagnosis unknown Discharge Disposition: Discharge to home or self care 03/05/2025 Telephone [facility] Infectious Diseases [address] [place] [phone] Danielle Gonsalez 03/01/2025 Results Follow-Up [facility] Infectious Diseases [address] [place] [phone] Vicki Hahn NP Mycobacteriology (AFB) culture and acid-fast stain Sputum Sputum 02/01/2025 Telephone [facility] Infectious Diseases [address] [place] [phone] Lilo, Afia 01/30/2025 7:45 AM CDT Ancillary Procedure 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; Ventricular fibrillation (HCC); NSVT (nonsustained ventricular tachycardia) (HCC) 01/15/2025 Telephone [facility] Infectious Diseases [address] [place] [phone] Nita Miller CMA 01/09/2025 Telephone [facility] Infectious Diseases [address] [place] [phone] Maine Esquivel CMA 01/08/2025 12:20 PM CDT - 01/08/2025 11:59 PM CDT Hospital Encounter [address] [address] Pulmonary mycobacterial infection (HCC) Discharge Disposition: Discharge to home or self care 01/08/2025 9:20 AM CDT Office Visit [facility] Infectious Diseases [address] [place] [phone] Vicki Hahn NP Pulmonary mycobacterial infection (HCC) (Primary Dx); 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 Results Follow-Up [facility] Infectious Diseases [address] [place] [phone] Vicki Hahn NP Mycobacteriology (AFB) culture and acid-fast stain Sputum Sputum 12/14/2024 Telephone [facility] Infectious Diseases [address] [place] [address] [place] [phone] Nahomy Sorto RMA from Last 3 [...] CDT Gender Identity Male 08/12/2022 2:14 PM PEER SPECIALIST Sexual Orientation Not on file Obstetrics History Last Filed Vital Signs Vital Sign Reading Time Taken Comments Blood Pressure 176/68 01/08/2025 9:26 AM CDT Pulse 73 01/08/2025 9:26 AM CDT Temperature 36.7 C (98 F) 01/08/2025 9:26 AM CDT Respiratory Rate 24 01/27/2024 8:49 AM CDT Oxygen Saturation 91% 09/18/2024 10: 22 AM PEER SPECIALIST Inhaled Oxygen Concentration - - Weight 68.4 kg (150 lb 12.7 oz) 025 10:22 AM PEER SPECIALIST Height 172.7 cm (5' 8) 04/25/2024 12:5 [...] Completed 09/18/2024 Medical Devices Implanted Type Area Mosaicist Device Identifier Shelf Expiration Date Model / Serial / Lot Pacemaker Pacemaker Chest Procedures Procedure Name Priority Date/Time Associated Diagnosis Comments CT BODY OUTSIDE CONSULT Routine 03/06/20 25 3:22 PM CDT Diagnosis unknown MYCOBACTERIOLOGY AFB CULTURE AND ACID-FAST STAIN Routine 01/08/2025 10:15 AM CDT Pulmonary mycobacterial infection (HCC) HEPATITIS C ANTIBODY Routine 09/18/2024 11:41 AM PEER SPECIALIST Other specified respiratory disorders from Last 3 [...] images may or may not represent the seminole source data set and thus may contain [...] STUDY STUDY INITIALLY PERFORMED: 02/18/2025 at [facility]. TYPE OF STUDY: Multiple CT [...] STUDY STUDY INITIALLY PERFORMED: 02/18/2025 at [facility]. TYPE OF STUDY: Multiple CT [...] images may or may not represent the seminole source data set and thus may contain [...] Unable to rule out Mycobacteria. (.) [facility] Sputum (Sputum) 01/08/2025 1 0:15 AM CDT 01/08/2025 1:17 PM CDT Narrative [facility] - 01/29/2025 2:33 PM CDT Testing performed by [facility] Microbiology Laboratory ([phone]). Vicki Hahn NP LAB MICROBIOLOGY - GENERA L ORDERABLES Final Result Performing Organization Address City/State/[facility] Co de Phone Number [facility] Department [place] [address] * Hepatitis C antibody Blood (09/18/2024 11:41 AM PEER SPECIALIST) Hep C Ab Nonreactive Nonreactive Comment:Antibodies to HCV no t detected. Does NOT exclude the possibility of recent exposure to HCV. Current interpretive data was last revised on 22 Blood 09/18/2024 11:4 1 AM PEER SPECIALIST 09/18/2024 3:56 PM PEER SPECIALIST Vicki Hahn NP LAB MICROBIOLOGY - GENERA L ORDERABLES Final Result Performing Organization Address [facility] Co de Phone Number [facility] [place] [address] from Last 3 Months or Most Recently Relevant to Health Maintenance Insurance U[employer] MEDICARE ADVANTAGE UHC MEDICARE ADVANTAGE [facility] CHOICE PLUS MEDICARE [facility] MEDICARE ADVANTAGE Advance Directives For more information, please contact: [phone] * Full Code (Latest Code Status on File) Date Activated Date Inactivated Comments 06/12/2021 8:06 PM 06/23/2021 5:12 PM * Full Code Date Activated Date Inactivated Comments 06/10/2021 9:01 PM 06/12/2021 8:06 PM Care Teams Montessori Lead Teacher Relationship Specialty Start Date End Date Ranulfo Romo DO PCP - General Family Medicine 04/08/22 Daniela Hilario NP Nurse Practitioner Nurse Practitioner 03/26/22
--- OUTSIDE RECORDS SUMMARY | 2025-03-13 11:58 | XMS_ITS | Encounter Summary ---
Author Organization [facility] Care Team Providers Care Mayonnaise Mixer Name Role Phone Ross Espinosa MD Primary Care Provider [phone] Encounter Details Date Type Department Care Team (Late st Contact Info) Description 06/06/2021 3:37 PM CDT Hospital Encounter Yamilet Faustin MD [address] [place] [address] Social History Tobacco Use Types Packs/Day Years [...] CDT Gender Identity Male 08/12/2022 2:14 PM MULTIPLE TUBE WINDING MACHINE OPERATOR Sexual Orientation Not on file documented as of this encounter Functional Status documented as of this encounter Plan of Treatment Not on file documented as of this encounter Visit Diagnoses Not on filedocumented in this encounter Care Teams Mayonnaise Mixer Relationship Specialty Start Date End Date Ross Espinosa MD [address] [place] [address] PCP - General Internal Medicine 03/24/21 06/09/21 documented as of this encounter
--- OUTSIDE RECORDS SUMMARY | 2025-03-13 11:58 | XMS_ITS | Encounter Summary ---
Author Organization [facility] Address [facility] [place] [address] Care Team Providers Care Intelligence Agent Name Role Phone Ranulfo Romo DO Primary Care Provider [phone] Josiah Lay MD Unavailable Daniela Hilario [facility] Unavailable + [phone] Encounter Details Date Type Department Care Team (Late st Contact Info) Description 04/05/2022 [employer] [facility] Patient Accounts [address] [place] [address] [facility] Provider Auto Pay Payment Plan Social History Tobacco Use Types Packs/Day Years Used Date Smoking Tobacco: Former Cigarettes 2 40 1 970 - 2009 Smokeless Tobacco: Never Alcohol Use Standard Drinks/Week Comments Not Currently 0 (1 standard drink = 0.6 oz pur e alcohol) Sex and Gender Information Value Date Recorded Sex Assigned at Not on file Legal Sex Male 3:43 PM MATERIAL CONTROL ASSOCIATE Gender Identity Male 10/27/2021 1:50 PM MATERIAL CONTROL ASSOCIATE Sexual Orientation Straight 10/27/2021 1: 50 PM MATERIAL CONTROL ASSOCIATE documented as of this encounter Plan of Treatment Not on file documented as of this encounter Visit Diagnoses Not on filedocumented in this encounter Care Teams Intelligence Agent Relationship Specialty Start Date End Date Ranulfo Romo DO [address] [place] [address] [place] [address] PCP - General FAMILY PRACTICE 03/30/22 Josiah Lay MD [address] [place] [address] CARDIOVASCULAR DISEASE 03/30/22 Daniela Hilario, GLUE MILL OPERATOR- [facility] [address] [place] [phone] Nurse Practitioner Family 03/30/22 documented as of this encounter
--- OUTSIDE RECORDS SUMMARY | 2025-03-13 11:58 | XMS_ITS | Clinical Summary ---
Author Organization [facility] Address [address] [place] [address] Care Team Providers Care Mold Closer Name Role Phone Ranulfo Romo Primary Care Provider [phone] Josiah Lay MD Unavailable Daniela Hilario [facility]- Unavailable [phone] Allergies No known active allergies Medications Multiple [...] problems Immunizations Immunization Administration Dates Next Due [facility] COVID-19 (ORIGINAL FO RMULATION, PURPLE CAP) mRNA, [...] on file Legal Sex Male 3:43 PM INSTALLATION MANAGER Gender Identity Male 10/27/2021 1:50 PM INSTALLATION MANAGER Sexual Orientation Straight 10/27/2021 1: 50 PM INSTALLATION MANAGER Last Filed Vital Signs Vital Sign Reading [...] patient's age to complete this topic Insurance [facility] Advance Directives Documents on File Type Date Recorded Patient Weed Eradicator Expl anation Power of Gas Plant Repairer 11/10/2021 POA for [facility] Care Care Teams Mold Closer Relationship Specialty Start Date End Date Ranulfo Romo DO [address] [facility] [address] [place] [address] PCP - General FAMILY PRACTICE 03/30/22 Josiah Lay MD [address] [facility] [address] [place] [address] CARDIOVASCULAR DISEASE 03/30/22 Daniela Hilario, FINANCIAL MANAGEMENT- [address] [facility] [address] [place] [address] Nurse Practitioner Family 03/30/22
--- OUTSIDE RECORDS SUMMARY | 2025-03-13 11:58 | XMS_ITS | Encounter Summary ---
Author Organization [facility] Address [address] [facility] [address] [place] [address] Phone Care Team Providers Care Computational Mathematician Name Role Phone Daniela Hilario NP Unavailable [phone] Ranulfo Romo DO Primary Care Provider [phone] Encounter Details Date Type Department Care Team (Latest Contact Info) Description 03/01/2025 Results Follow-Up [facility] Infectious Diseases [address] [place] [address] [address] [place] [address] Vicki Hahn, SHASHANK [address] [place] [address] Mycobacteriology (AFB) culture and acid-fast stain Sputum [...] CDT Gender Identity Male 08/12/2022 2:14 PM STAMP PRESS OPERATOR Sexual Orientation Not on file documented as of this encounter Plan of Treatment Not on file documented as of this encounter Visit Diagnoses Not on filedocumented in this encounter Care Teams Computational Mathematician Relationship Specialty Start Date End Date Ranulfo Romo DO PCP - General Family Medicine 04/08/22 Daniela Hilario NP Nurse Practitioner Nurse Practitioner 03/26/22 documented as of this encounter
--- OUTSIDE RECORDS SUMMARY | 2025-03-13 11:58 | XMS_ITS | Encounter Summary ---
Author Organization [facility] Address [address] [place] [address] Phone Care Team Providers Care Director Of Institutional Research Name Role Phone Daniela Hilario POULTRY PICKING MACHINE TENDER Unavailable [phone] Ranulfo Romo DO Primary Care Provider [phone] Encounter Details Date Type Department Care Team [...] CDT Gender Identity Male 08/12/2022 2:14 PM COMMERCIAL GREEN BUILDING DESIGNER Sexual Orientation Not on file documented as [...] in this encounter Care Teams Director Of Institutional Research Relationship Specialty Start Date End Date Ranulfo Romo DO PCP - General Family Medicine 04/08/22 Daniela Hilario NP Nurse Practitioner Nurse Practitioner 03/26/22 documented as of this encounter
--- OUTSIDE RECORDS SUMMARY | 2025-03-13 11:58 | XMS_ITS | Encounter Summary ---
Author Organization [facility] Address [address] [place] [address] Phone Care Team Providers Care Mine Inspector Name Role Phone Daniela Hilario TECHNICAL MARKETING CONSULTANT Unavailable [phone] Ranulfo Romo DO Primary Care Provider [phone] Encounter Details Date Type Department Care Team [...] CDT Gender Identity Male 08/12/2022 2:14 PM MUD WORKER Sexual Orientation Not on file documented as of this encounter Plan of Treatment Not on file documented as of this encounter Procedures Procedure Name Priority Date/Time Associated Diagnosis Comments SCAN - LABS 02/17/2024 documented in this encounter Results * SCAN - LABS (02/17/2024) us Provider Scanning Final Result documented in this encounter Visit Diagnoses Not on filedocumented in this encounter Care Teams Mine Inspector Relationship Specialty Start Date End Date Ranulfo Romo DO PCP - General Family Medicine 04/08/22 Daniela Hilario NP Nurse Practitioner Nurse Practitioner 03/26/22 documented as of this encounter
--- OUTSIDE RECORDS SUMMARY | 2025-03-13 11:58 | XMS_ITS | Clinical Summary ---
Author Organization [facility] Address [address] [place] [address] Phone Care Team Providers Care Instrument Lens Inspector Name Role Phone Ranulfo Romo Primary Care Provider [phone] Allergies Active Allergy Reactions Criticality Noted Date [...] 04/24/2021 Insurance [employer] MEDICARE Care Teams Instrument Lens Inspector Relationship Specialty Start Date End Date Ranulfo Romo DO PCP - General Family Medicine 12/30/21
--- OUTSIDE RECORDS SUMMARY | 2025-03-13 11:58 | XMS_ITS | Referral Summary ---
Author Organization [facility] [address] Address [address] [place] [address] Care Team Providers Care General Farm Manager Name Role Phone Daniela Hilario NP Unavailable [phone] Ranulfo Romo DO Primary Care Provider [phone] Encounters Date Type Department Care Team Description 03/06/2025 3:22 PM CDT - 03/06/2025 11:59 PM CDT Hospital Encounter [facility] [address] [place] [phone] Diagnosis unknown Discharge Disposition: Discharge to home or self care 03/05/2025 Telephone [facility] Infectious Diseases [address] [place] [address] [place] [phone] Danielle Gonsalez 03/01/2025 Results Follow-Up [facility] Infectious Diseases [address] [place] [address] [place] [phone] Vicki Hahn NP Mycobacteriology (AFB) culture and acid-fast stain Sputum Sputum 02/01/2025 Telephone [facility] Infectious Diseases [address] [place] [address] [place] [phone] Afia Nagy 01/30/2025 7:45 AM CDT Ancillary Procedure [facility] [address] [facility] [address] [place] [phone] NICM (nonischemic cardiomyopathy) (HCC); 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; Ventricular fibrillation (HCC); NSVT (nonsustained ventricular tachycardia) (HCC) 01/15/2025 Telephone [facility] Infectious Diseases [address] [place] [phone] Nita Miller, [facility] 01/09/2025 Telephone [facility] Infectious Diseases [address] [place] [phone] Maine Esquivel, [facility] 01/08/2025 12:20 PM CDT - 01/08/2025 11:59 PM CDT Hospital Encounter 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 Results Follow-Up [facility] Infectious Diseases [address] [place] [phone] Vicki Hahn, SHASHANK Mycobacteriology (AFB) culture and acid-fast stain Sputum Sputum 12/14/2024 Telephone [facility] Infectious Diseases [address] [place] [phone] Nahomy Sorto RMA from Last 3 Months [...] (12/30/2021): Added automatically from request for surgery [id number] ALFREDO (acute kidney injury) 06/16/2021 Assessment & [...] 06/10/2021 Assessment & Plan (07/10/2021 8:59 PM CASE SUPERVISOR): - Currently receiving Ceftriaxone 2 g [...] DOI 05/02/2019-Dr Zenia Good ([place]). [facility] remote. Assessment & Plan (06/11/2021 8:06 [...] CDT Gender Identity Male 08/12/2022 2:14 PM CASE SUPERVISOR Sexual Orientation Not on file Last Filed Vital Signs Vital Sign Reading Time Taken Comments Blood Pressure 176/68 01/08/2025 9:26 AM CDT Pulse 73 01/08/2025 9:26 AM CDT Temperature 36.7 C (98 F) 01/08/2025 9:26 AM CDT Respiratory Rate 24 01/27/2024 8:49 AM CDT Oxygen Saturation 91% 09/18/2024 10: 22 AM CASE SUPERVISOR Inhaled Oxygen Concentration - - Weight 68.4 kg (150 lb 12.7 oz) 025 10:22 AM CASE SUPERVISOR Height 172.7 cm (5' 8) 04/25/2024 12:5 7 PM CDT Body Mass Index 22.93 04/25/2024 12:57 PM CDT Plan of Treatment Not on file Medical Devices Implanted Type Area Installer Interior Assemblies Device Identifier Shelf Expiration Date Model / Serial / Lot Pacemaker Pacemaker Chest Procedures Procedure Name Priority Date/Time Associated Diagnosis Comments CT BODY OUTSIDE CONSULT Routine 03/06/20 25 3:22 PM CDT Diagnosis unknown MYCOBACTERIOLOGY AFB CULTURE AND ACID-FAST STAIN Routine 01/08/2025 10:15 AM CDT Pulmonary mycobacterial infection (HCC) HEPATITIS C ANTIBODY Routine 09/18/2024 11:41 AM CASE SUPERVISOR Other specified respiratory disorders from Last [...] images may or may not represent the [place] source data set and thus may contain [...] IMAGING STUDY STUDY INITIALLY PERFORMED: 02/18/2025 at [facility]. TYPE OF STUDY: Multiple CT images of [...] IMAGING STUDY STUDY INITIALLY PERFORMED: 02/18/2025 at [facility]. TYPE OF STUDY: Multiple CT images of [...] images may or may not represent the [place] source data set and thus may contain [...] rule out Mycobacteria. (.) [facility] Sputum (Sputum) 01/08/2025 1 0:15 AM CDT 01/08/2025 1:17 PM CDT Narrative [facility] - 01/29/2025 2:33 PM CDT Testing performed by [facility] Microbiology Laboratory ([phone]). Vicki Hahn NP LAB MICROBIOLOGY - GENERA L ORDERABLES Final Result Performing Organization Address City/[facility] Co de Phone Number [facility] [place] [address] * Hepatitis C antibody Blood (09/18/2024 11:41 AM CASE SUPERVISOR) Hep C Ab Nonreactive Nonreactive Comment:Antibodies to HCV no t detected. Does NOT exclude the possibility of recent exposure to HCV. Current interpretive data was last revised on 22 Blood 09/18/2024 11:4 1 AM CASE SUPERVISOR 09/18/2024 3:56 PM CASE SUPERVISOR Vicki Hahn NP LAB MICROBIOLOGY - GENERA L ORDERABLES Final Result Performing Organization Address City/[facility] de Phone Number [facility] [place] [address] from Last 3 Months or Most Recently Relevant to Health Maintenance Insurance [facility] ANDREA MARTIN [address] MEDICARE ADVANTAGE [facility] Address: [address] [address] [facility] MEDICARE ADVANTAGE [facility] Address: [address] [address] [place] [address] [facility] CHOICE PLUS [facility] HMO/PPO Address: [address] [address] [place] [address] MEDICARE [facility] MEDICARE ADVANTAGE [facility] Address: [address] [address] Advance Directives For more information, please contact: [phone] * Full Code (Latest Code Status on File) Date Activated Date Inactivated Comments 06/12/2021 8:06 PM 06/23/2021 5:12 PM * Full Code Date Activated Date Inactivated Comments 06/10/2021 9:01 PM 06/12/2021 8:06 PM Care Teams General Farm Manager Relationship Specialty Start Date End Date Ranulfo Romo DO PCP - General Family Medicine 04/08/22 Daniela Hilario NP Nurse Practitioner Nurse Practitioner 03/26/22
--- NOTE | 2025-03-13 12:13 | ECG_ITS ---
Test Date: 2025-03-13 12:13:25 Measurements Intervals [place] Rate: 87 P: 65 OR: 173 QRS: 24 QRSD: 118 T: 47 QT: 384 QTc: 462 Interpretive Statements ELECTRONIC VENTRICULAR PACEMAKER ATYPICAL ECG Electronically Signed On 03-13-2025 16:45:21 CDT by Noah Chase M.D.
--- NOTE | 2025-03-13 12:31 | ADMGEN ---
This patient, Freddy Hill, was admitted to Medical Room 258-01. Patient/family oriented to hospital policies and general routines including ID bracelet, bed and alarms, visiting hours, pain management, procedures, bathroom and other care routines, personal items, smoking policy, room service/diet, and visiting hours. Information on how to activate the Rapid Response Team has been discussed. Patient/Family are encouraged to report perceived risks to care and to ask questions if they do not understand what they are told or what they should do.
--- NOTE | 2025-03-13 12:46 | P.HP_ITS ---
H&P: HPI History of Present Illness Date/Time: 03/13/25 12:46 Chief Complaint: Shortness of breath Narrative: 74-year-old male past medical history of CAD, CKD stage 4, chronic respiratory failure on home oxygen, heart failure with preserved ejection fraction, pacemaker and hypertension presents the hospital with shortness of breath. Patient also complains of a cough with bloody sputum. Patient states that he has never had bloody sputum before and this all started yesterday. It has progressively gotten worse. Patient denies fever chills nausea vomiting or recent weight loss. Lab work in the ED shows anemia at 10.3 which is higher than baseline, ABG pH 7.4, pCO2 57, PO2 79, bicarb 35, carbon dioxide 36, BUN 28, creatinine 1.77 which is at baseline, GFR 38, lactic acid of 0.5, troponin 0.015. Chest x-ray shows Stable chronic interstitial lung disease with chronic left pleural thickening/effusion. Chest CT shows no PE, severe emphysema and mucous plugging, left-sided pulmonary nodules measuring 10 mm or less, patchy left lower consolidation, and mediastinal and hilar lymphadenopathy. Pulmonology has been consulted. Review of Systems Review of Systems: 12 systems were reviewed and are negativ e except for as per HPI. [facility] Past Medical History Medical History Coronary artery disease severe single vessel coronary artery disease with chronic total occlusion of the proximal RCA with [id number] collaterals Chronic kidney disease, stage 4 (severe) Chronic respiratory failure with hypoxia, on home oxygen therapy Pseudomonas respiratory infection Femoral artery stenosis, left Heart failure with preserved ejection fraction echocardiogram in November 2021 showed normal LV size and function with an EF measured at 66% and impaired diastolic relaxation Chronic anemia Urethral stricture Empyema of left pleural space (05/2021) Pleural fluid grew out strep intermedius and staph hominis. Status post thoracotomy with decortication. Benign prostatic hyperplasia Peripheral vascular disease Status post right carotid endarterectomy. Status post left lower extremity stent. COVID-19 (04/2020) AV block status post Medtronic pacemaker placement Chronic kidney disease, stage 3 Psoriasis Eczema Gastroesophageal reflux disease COPD with emphysema Loculated empyema Obstructive sleep apnea On 2 L nasal cannula at nighttime Hypertension Arthritis Surgical History Surgical History History of cardiac catheterization (01/2024) severe single vessel coronary artery disease with chronic total occlusion of the proximal RCA with [id number] collaterals History of dilation of urethra History of thoracotomy (05/2021) Left thoracotomy with decortication for empyema. History of right-sided carotid endarterectomy History of tonsillectomy Status post peripheral artery angioplasty with insertion of stent Left lower extremity. Status post placement of cardiac pacemaker (06/2020) History of hip replacement Bilaterally with revision History of herniorrhaphy Family History Family History Father Heart disease Heart attack Hypertension Cerebrovascular accident Mother Diabetes mellitus Hypertension Asthma Heart disease Sibling Hypertension Social History Social History Social History: Surrogate medical decision maker: Michelle Schroeder, . Code status: Full code. Smoking packs per day: 2 Smoking cigarettes per day: 40.0 Years smoked: 40 Smoking pack-years: 80.00 Smoking status: Former smoker Tobacco type: cigarettes Second hand tobacco smoke exposure: Yes Smoking end date: 08/22/09 Alcohol intake: never Alcohol use details: rarely Substance use: never Substance use type: does not use Do You Feel Safe in your Home?: Yes Lack of Transportation: No Lack of Food: Never True Current Housing: I Have Housing Concerned About Future Housing: No Difficulty Paying Gas/Electric Bills: No Difficulty Paying for Meds: YES Currently Unemployed: No Education: Bachelor's Degree Difficulty w/ Childcare or Family Care: No Living arrangements: alone Additional living arrangements comments: . He has 3 children. 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 Spiritual care concerns: No Agree to blood products: Yes Meds Home Medications and Allergies Home Medications ?Medication ?Instructions ?Recorded ?Confirmed ?Type acetaminophen 500 mg tablet 1,000 mg PO Q6H PRN Mild Pain 06/02/21 03/13/25 History (Scale Score 1-4) pantoprazole 40 mg tablet,delayed 40 mg PO DAILY 01/11/22 03/13/25 History release doxepin 25 mg capsule 25 mg PO QHS PRN Sleep 05/15/22 03/13/25 History dupilumab 300 mg/2 mL subcutaneous 300 mg (2 mL) subcut .COMPLEX #4 mL 11/25/22 03/13/25 Rx syringe (DupixKinoos) tamsulosin 0.4 mg capsule 0.8 mg PO HS 01/24/23 03/13/25 History clopidogrel 75 mg tablet 75 mg PO DAILY 07/21/23 03/13/25 History amlodipine 10 mg tablet 10 mg PO HS 02/02/24 03/13/25 History finasteride 5 mg tablet 5 mg PO DAILY 04/30/24 03/13/25 History carvedilol 25 mg tablet See Rx Instructions .Route 06/13/24 03/13/25 Rx .COMPLEX #200 tabs potassium chloride 10 mEq 10 meq PO DAILY #100 caps 07/23/24 03/13/25 Rx capsule,extended release albuterol sulfate 2.5 mg/3 mL 2.5 mg (3 mL) inhalation Q4-6H PRN 08/28/24 03/13/25 Rx (0.083 %) solution for nebulization SOB #180 mL albuterol sulfate 90 mcg/actuation 2 puff inhalation Q6H PRN 09/04/24 03/13/25 History aerosol inhaler shortness of breath or wheezing cetirizine 10 mg capsule (Zyrtec) 10 mg PO HS PRN allergy symptoms 09/04/24 03/13/25 History multivitamin-ferrous 1 tablet PO DAILY 09/04/24 03/13/25 History fumarate-folic acid 18 mg-400 mcg tablet (Centrum) tiotropium 2.5 mcg-olodaterol 2.5 See Rx Instructions .Route 12/06/24 03/13/25 Rx mcg/actuation mist for inhalation .COMPLEX #12 grams (Stiolto Respimat) atorvastatin 80 mg tablet (Lipitor) 80 mg PO DAILY 01/29/25 03/13/25 History cilostazol 50 mg tablet 50 mg PO BID 01/29/25 03/13/25 History furosemide 40 mg tablet 40 mg PO QAM 01/29/25 03/13/25 History gabapentin 300 mg capsule 300 mg PO DAILY PRN neuropathy 01/29/25 03/13/25 History tramadol 50 mg tablet 50 mg PO Q6H PRN pain 01/29/25 03/13/25 History triamcinolone acetonide 0.1 % 1 applic topical BID PRN itching 01/29/25 03/13/25 History topical cream Allergies Allergy/AdvReac Type Severity Reaction Status Date / Time oxycodone AdvReac Severe severe Verified 03/13/25 12:41 constipation doxycycline AdvReac Unknown Nausea and Verified 03/13/25 12:41 Vomiting Vital Signs Vital Signs - 24 hr 03/13/25 06:45 03/13/25 06:45 03/13/25 06:47 Temperature 98.9 F Pulse Rate 76 Respiratory Rate 26 H Blood Pressure 137/62 137/62 Pulse Oximetry 96 98 100 Oxygen Delivery Nasal Cannula Oxygen Flow Rate 4 03/13/25 07:00 03/13/25 07:01 03/13/25 07:15 Temperature Pulse Rate 68 68 66 Respiratory Rate 25 H 21 H 23 H Blood Pressure 144/60 H Pulse Oximetry 100 100 100 Oxygen Delivery Oxygen Flow Rate 03/13/25 07:30 03/13/25 07:45 03/13/25 07:51 Temperature Pulse Rate 76 71 76 Respiratory Rate 19 23 H Blood Pressure Pulse Oximetry 100 100 Oxygen Delivery Oxygen Flow Rate 03/13/25 09:29 03/13/25 09:35 03/13/25 09:48 Temperature Pulse Rate 84 86 85 Respiratory Rate 17 29 H 20 Blood Pressure Pulse Oximetry 100 100 100 Oxygen Delivery Oxygen Flow Rate 03/13/25 11:02 03/13/25 11:56 Temperature Pulse Rate 88 85 Respiratory Rate 20 25 H Blood Pressure 153/66 H Pulse Oximetry 98 97 Oxygen Delivery Oxygen Flow Rate Exam Narrative: General: well appearing, appears stated age. HEENT: normocephalic, atraumatic. Mucous membranes moist. EOMI, PERRLA, bilateral sclera anicteric, no conjunctival injection. Neck supple without JVD, lymphadenopathy, or bruit. Respiratory: clear to ascultation bilaterally. No rales/rhonic/wheezes. Cardiovascular: Regular rate and rhythm, normal S1-S2 upon ascultation. No murmurs, rubs, or clicks. PMI is nondisplaced, capillary refill less than 3 second. Abdomen: Soft, round, no pulsatile masses, nondistended and nontender. No rebound, no guarding. No CVA tenderness, no hepatosplenomegaly. Bowel sounds present to all four quadrants. No high pitch or tinkling sounds, resonant to percussion. Extremities: No cyanosis, clubbing, Pulses are palpable 2/2. Active ROM to all four extremities. 1+ pedal edema Neuro: Alert and orientated x 4. PERRLA. Cranial nerves 2-12 intact without focal deficit. Skin: Warm, dry, and intact, without rash, erythema, or lesion. Psych: pleasant, cooperative, normal speech, normal affect, no hallucinations, no dysarthia H&P: Results Labs Labs: Short CBC 03/13/25 Range/Units 07:40 WBC 7.6 (4.5-10.0) K/mm3 Hgb 10.3 L (14.0-18.0) g/dL Hct 36.1 L (42.0-52.0) % Plt Count 159 (150-375) k/mm3 BMP 03/13/25 07:39 Sodium 144 Potassium 4.2 Chloride 101 Carbon Dioxide 36 H BUN 28 H Creatinine 1.77 H Glucose 100 Calcium 9.2 Cardiac Enzymes 03/13/25 Range/Units 07:39 Troponin I 0.015 (0.000-0.034) ng/mL Liver Function 03/13/25 Range/Units 07:39 Total Bilirubin 0.5 (0.2-1.3) mg/dL AST 31 (17-59) U/L ALT 13 (6-50) U/L Alkaline Phosphatase 113 (38-126) U/L Albumin 4.2 (3.5-5.1) g/dL Assessment and Plan Assessment and plan (1) Hemoptysis: Code(s): R04.2 - Hemoptysis Status: Acute Assessment and Plan: Pulmonology consulted recommendations pending Hold anticoagulation (2) COPD exacerbation: Code(s): J44.1 - Chronic obstructive pulmonary disease with (acute) exacerbation Status: Acute Assessment and Plan: IV Levaquin DuoNeb Guaifenesin Steroids (3) Pneumonia: Code(s): J18.9 - Pneumonia, unspecified organism Status: Acute Assessment and Plan: IV Levaquin (4) Multiple pulmonary nodules determined by computed tomography of lung: Code(s): R91.8 - Other nonspecific abnormal finding of lung field Status: Acute Assessment and Plan: Left-sided pulmonary nodules measuring 10 mm or less. Cannot exclude primary bronchogenic carcinoma or metastatic disease versus infectious/inflammatory process. Pulmonology consulted Discussed with patient (5) Heart failure with preserved ejection fraction: Code(s): I50.30 - Unspecified diastolic (congestive) heart failure Status: Acute Assessment and Plan: Restart home Lasix no need for IV Lasix patient is euvolemic (6) Coronary artery disease: Qualifiers: Associated angina: without angina Coronary Disease-Associated Artery/Lesion type: unspecified vessel or lesion type [facility] vs. transplanted heart: [place] heart Qualified Code(s): I25.10 - Atherosclerotic heart disease of [place] coronary artery without angina pectoris Code(s): I25.10 - Atherosclerotic heart disease of [place] coronary artery without angina pectoris Status: Acute Assessment and Plan: Restart Lipitor, Coreg, Plavix, (7) Chronic kidney disease, stage IV (severe): Code(s): N18.4 - Chronic kidney disease, stage 4 (severe) Status: Chronic Assessment and Plan: Avoid nephrotoxic medications (8) BPH (benign prostatic hyperplasia): Qualifiers: Lower urinary tract symptom presence: unspecified whether lower urinary tract symptoms present Qualified Code(s): N40.0 - Benign prostatic hyperplasia without lower urinary tract symptoms Code(s): N40.0 - Benign prostatic hyperplasia without lower urinary tract symptoms Status: Acute Assessment and Plan: Continue Proscar and Flomax Quality VTE Prophylaxis VTE prophylaxis: mechanical ordered If No VTE Prophylaxis Answer both mechanical and pharmacologic: Reason no pharmacologic proph: medical contraindication active bleeding/bleeding risk Hospitalist MIPS Advance Care Plan I have confirmed that the patient's Advanced Care Plan is present, code status is documented, or surrogate decision maker is listed in patient medical record.: Yes Medication Reconciliation I have utilized all available resources to obtain, update and review the patients current medications (includes all prescriptions, OTC, herbals, cannabis, and nutritional supplements).: Yes
[2025-03-13] MEDS: IPRATROPIUM 0.5 MG/ALBUTEROL SULFATE 2.5 MG AMPUL.NEB 3 ML INHALATION ×2 (15:17→19:36)
[2025-03-13] MEDS: guaiFENesin 12 HR 600 MG TABCR 1200 MG PO (20:22)
[2025-03-13] MEDS: GABAPENTIN 300 MG CAPSULE PO (20:24)
[2025-03-13] MEDS: TAMSULOSIN HCL 0.4 MG CAPSULE 0.8 MG PO (20:24)
[2025-03-14] VITALS (14 sets, daily range): BP systolic 120–158; BP diastolic 60–79; PULSE 65–99; RESP 14–118; TEMP 36.2–36.7; O2SAT 93–99; BMI 25.1
[2025-03-14 05:45] LABS: Hematocrit 31.6 % (42.0-52.0); Hemoglobin 9.3 g/dL (14.0-18.0); Immature Granulocyte Percent A 0.2 % (0-0.5); Lymphocytes Absolute Auto 0.52 K/mm3 (0.9-3.2); Mean Corpuscular HGB Conc 29.4 g/dl (32-36); Mean Corpuscular Hemoglobin 25.4 pg (26-34); Mean Corpuscular Volume 86.3 fl (80-100); Nucleated Red Blood Cells Absolute Auto 0.000 K/mm3 (0.0-0.012); Nucleated Red Blood Cells Perc 0.0 % (0.0-0.2); Platelet Count Result 150 k/mm3 (150-375); Red Blood Count 3.66 M/mm3 (4.6-6.20); White Blood Count 6.3 K/mm3 (4.5-10.0)
[2025-03-14 05:55] LABS: INR 1.1; Prothrombin Time 14.3 Seconds (11.1-14.7)
[2025-03-14 05:56] LABS: Partial Thromboplastin Time 35.8 Seconds (22.3-36.8)
[2025-03-14 06:09] LABS: Anion Gap 6 mmol/L (4-12); Blood Urea Nitrogen 34 mg/dL (9-20); Calcium 8.6 mg/dL (8.4-10.2); Carbon Dioxide 33 mmol/L (22-30); Chloride 99 mmol/L (98-107); Estimated CRCL calculation 33 ml/min; Estimated Glomerular Filt Rate 38; Glucose 101 mg/dL (65-110); Potassium 4.0 mmol/L (3.4-5.0); Sodium 138 mmol/L (137-145)
[2025-03-14 06:20] LABS: Hypochromasia 2+; Schistocytes None Seen
[2025-03-14 06:21] LABS: Anisocytosis 1+; Ovalocytes 1+
[2025-03-14] MEDS: IPRATROPIUM 0.5 MG/ALBUTEROL SULFATE 2.5 MG AMPUL.NEB 3 ML INHALATION ×2 (08:23→19:30)
[2025-03-14] MEDS: UMECLIDINIUM/VILANTEROL 62.5-25 MCG ELLIPTA 1 PUFF INHALATION (08:29)
[2025-03-14] MEDS: CLOPIDOGREL BISULFATE 75 MG TABLET PO (09:39)
[2025-03-14] MEDS: FINASTERIDE 5 MG TABLET PO (09:39)
[2025-03-14] MEDS: ATORVASTATIN 40 MG TABLET 80 MG PO (09:39)
[2025-03-14] MEDS: FUROSEMIDE 40 MG TABLET PO (09:40)
[2025-03-14] MEDS: DOCUSATE SODIUM 100 MG CAPSULE PO (09:40)
[2025-03-14] MEDS: guaiFENesin 12 HR 600 MG TABCR 1200 MG PO ×2 (09:40→21:56)
--- NOTE | 2025-03-14 12:13 | P.PNIM_ITS ---
Progress Note: A&P Assessment and Plan (1) Hemoptysis: Code(s): R04.2 - Hemoptysis Status: Acute Assessment and Plan: Pulmonology consulted recommendations pending Hold anticoagulation (2) COPD exacerbation: Code(s): J44.1 - Chronic obstructive pulmonary disease with (acute) exacerbation Status: Acute Assessment and Plan: IV Levaquin DuoNeb Guaifenesin Steroids (3) Pneumonia: Code(s): J18.9 - Pneumonia, unspecified organism Status: Acute Assessment and Plan: IV Levaquin monitor cultures (4) Multiple pulmonary nodules determined by computed tomography of lung: Code(s): R91.8 - Other nonspecific abnormal finding of lung field Status: Acute Assessment and Plan: Left-sided pulmonary nodules measuring 10 mm or less. Cannot exclude primary bronchogenic carcinoma or metastatic disease versus infectious/inflammatory process. awaiting pulm eval (5) Heart failure with preserved ejection fraction: Code(s): I50.30 - Unspecified diastolic (congestive) heart failure Status: Acute Assessment and Plan: Restart home Lasix no need for IV Lasix patient is euvolemic (6) Coronary artery disease: Qualifiers: Coronary Disease-Associated Artery/Lesion type: unspecified vessel or lesion type [place] vs. transplanted heart: [place] heart Associated angina: without angina Qualified Code(s): I25.10 - Atherosclerotic heart disease of [place] coronary artery without angina pectoris Code(s): I25.10 - Atherosclerotic heart disease of [place] coronary artery without angina pectoris Status: Acute Assessment and Plan: Restart Lipitor, Coreg, Plavix, (7) Chronic kidney disease, stage IV (severe): Code(s): N18.4 - Chronic kidney disease, stage 4 (severe) Status: Chronic Assessment and Plan: Avoid nephrotoxic medications (8) BPH (benign prostatic hyperplasia): Qualifiers: Lower urinary tract symptom presence: unspecified whether lower urinary tract symptoms present Qualified Code(s): N40.0 - Benign prostatic hyperplasia without lower urinary tract symptoms Code(s): N40.0 - Benign prostatic hyperplasia without lower urinary tract symptoms Status: Acute Assessment and Plan: Continue Proscar and Flomax Subjective Date/time seen: 03/14/25 12:13 Interval history: Comfortbale at bedside noted hemoptysis has markedly improved Review of Systems Review of Systems: 12 systems were reviewed and are negativ e except for as per HPI. Exam Narrative: General: well appearing, appears stated age. HEENT: normocephalic, atraumatic. Mucous membranes moist. EOMI, PERRLA, bilateral sclera anicteric, no conjunctival injection. Neck supple without JVD, lymphadenopathy, or bruit. Respiratory: clear to ascultation bilaterally. No rales/rhonic/wheezes. Cardiovascular: Regular rate and rhythm, normal S1-S2 upon ascultation. No murmurs, rubs, or clicks. PMI is nondisplaced, capillary refill less than 3 second. Abdomen: Soft, round, no pulsatile masses, nondistended and nontender. No rebound, no guarding. No CVA tenderness, no hepatosplenomegaly. Bowel sounds present to all four quadrants. No high pitch or tinkling sounds, resonant to percussion. Extremities: No cyanosis, clubbing, Pulses are palpable 2/2. Active ROM to all four extremities. 1+ pedal edema Neuro: Alert and orientated x 4. PERRLA. Cranial nerves 2-12 intact without focal deficit. Skin: Warm, dry, and intact, without rash, erythema, or lesion. Psych: pleasant, cooperative, normal speech, normal affect, no hallucinations, no dysarthia Objective Data Vital Signs Vital Signs: Vital Signs - 24 hr 03/13/25 13:00 03/13/25 14:40 03/13/25 15:18 Temperature 97.4 F L 97.9 F Pulse Rate 88 76 Respiratory Rate 18 18 Blood Pressure 157/67 H 150/70 H Pulse Oximetry 95 97 96 Oxygen Delivery Nasal Cannula Oxygen Flow Rate 4 03/13/25 15:18 03/13/25 15:29 03/13/25 19:36 Temperature Pulse Rate 80 80 85 Respiratory Rate 20 20 22 H Blood Pressure Pulse Oximetry 95 Oxygen Delivery Nasal Cannula Oxygen Flow Rate 4 03/13/25 19:45 03/13/25 20:00 03/13/25 20:23 Temperature Pulse Rate 85 85 Respiratory Rate 22 H Blood Pressure Pulse Oximetry 95 Oxygen Delivery Nasal Cannula Oxygen Flow Rate 4 03/13/25 21:47 03/14/25 00:10 03/14/25 06:04 Temperature 98.0 F 98.0 F 97.6 F Pulse Rate 77 76 65 Respiratory Rate 16 16 16 Blood Pressure 152/69 H 142/65 H 157/60 H Pulse Oximetry 97 94 97 Oxygen Delivery Oxygen Flow Rate 03/14/25 08:24 03/14/25 08:24 03/14/25 08:31 Temperature Pulse Rate 72 72 78 Respiratory Rate 20 20 20 Blood Pressure Pulse Oximetry 93 Oxygen Delivery Nasal Cannula Oxygen Flow Rate 4 03/14/25 09:39 Temperature Pulse Rate 78 Respiratory Rate Blood Pressure Pulse Oximetry Oxygen Delivery Oxygen Flow Rate Intake/Output Intake/Output: Intake & Output 03/11/25 03/12/25 03/13/25 03/14/25 23:59 23:59 23:59 23:59 Intake Total 2180 590 Output Total 150 700 Balance 2030 -110 Meds/Results Medications: Active Medications Generic Name Dose Route Start Last Admin Trade Name Freq PRN Reason Stop Dose Admin Acetaminophen 650 mg 03/13/25 10:51 Acetaminophen 325 Mg Tablet PO Q4H PRN Mild Pain (1-3) or Fever Albuterol/Ipratropium 3 ml 03/13/25 14:00 03/14/25 08:23 Ipratropium 0.5 Mg/Albuterol Sulfate 2.5 Mg Ampul.Neb 3 Ml INHALATION 3 ml Q6HRT JUSTIN Administration Amlodipine Besylate 10 mg 03/13/25 21:00 03/13/25 20:24 Amlodipine Besylate 10 Mg Tablet PO 10 mg HS JUSTIN Administration Atorvastatin Calcium 80 mg 03/14/25 09:00 03/14/25 09:39 Atorvastatin 40 Mg Tablet PO 80 mg DAILY JUSTIN Administration Carvedilol 25 mg 03/13/25 21:00 03/14/25 09:39 Carvedilol 25 Mg Tablet BY MOUTH 25 mg Q12HR JUSTIN Administration Clopidogrel Bisulfate 75 mg 03/14/25 09:00 03/14/25 09:39 Clopidogrel Bisulfate 75 Mg Tablet PO 75 mg DAILY JUSTIN Administration Docusate Sodium 100 mg 03/14/25 09:00 03/14/25 09:40 Docusate Sodium 100 Mg Capsule PO 100 mg DAILY JUSTIN Administration Finasteride 5 mg 03/14/25 09:00 03/14/25 09:39 Finasteride 5 Mg Tablet PO 5 mg DAILY JUSTIN Administration Furosemide 40 mg 03/14/25 09:00 03/14/25 09:40 Furosemide 40 Mg Tablet PO 40 mg QAM JUSTIN Administration Gabapentin 300 mg 03/13/25 13:02 03/13/25 20:24 Gabapentin 300 Mg Capsule PO 300 mg DAILY PRN Administration neuropathy Guaifenesin 1,200 mg 03/13/25 21:00 03/14/25 09:40 Guaifenesin 12 Hr 600 Mg Tabcr PO 1,200 mg Q12HR JUSTIN Administration Levofloxacin/Dextrose 750 mg in 150 mls @ 100 mls/hr 03/13/25 11:15 03/13/25 12:19 Levaquin 750 Mg/D5w 150 Ml IVPB Infused Q48H JUSTIN Infusion Loratadine 10 mg 03/13/25 13:11 Loratadine 10 Mg Tablet PO HS PRN allergy symptoms Prednisone 40 mg 03/14/25 08:00 03/14/25 09:39 Prednisone 20 Mg Tablet PO 40 mg DAILY@0800 JUSTIN Administration Tamsulosin HCl 0.8 mg 03/13/25 21:00 03/13/25 20:24 Tamsulosin Hcl 0.4 Mg Capsule PO 0.8 mg HS JUSTIN Administration Tramadol HCl 50 mg 03/13/25 13:02 Tramadol Hcl (*Crx) 50 Mg Tablet PO Q6H PRN pain 4-6 Umeclidinium/Vilanterol 1 puff 03/14/25 08:00 03/14/25 08:29 Umeclidinium/Vilanterol 62.5-25 Mcg Ellipta INHALATION 1 puff DAILYRT JUSTIN Administration Radiology Results: ITS Impressions Chest X-Ray 03/13/25 08:56 Impression: 1: Stable chronic interstitial lung disease with chronic left pleural thickening/effusion. No significant interval change. Chest CTA 03/13/25 09:16 IMPRESSION: 1. No evidence for pulmonary embolism in the central pulmonary arteries. Evaluation of peripheral pulmonary arteries limited. 2: Severe emphysema with bronchiectasis and mucous plugging. 3: Left-sided pulmonary nodules measuring 10 mm or less. Cannot exclude primary bronchogenic carcinoma or metastatic disease versus infectious/inflammatory process. 4: Patchy left lower lobe consolidation which may represent atelectasis, aspiration related inflammation or pneumonia. 5: Mediastinal and hilar lymphadenopathy which can be reactive or related to prior granulomatous disease or chronic inflammation. Differential diagnosis includes metastatic disease, smoking-related lymph node hyperplasia lymphoma. Labs Labs: Laboratory Results - last 24 hr 03/14/25 04:59 WBC 6.3 RBC 3.66 L Hgb 9.3 L Hct 31.6 L MCV 86.3 MCH 25.4 L MCHC 29.4 L RDW 15.2 H Plt Count 150 MPV 10.3 Immature Gran % (Auto) 0.2 Neut % (Auto) 83.8 H Lymph % (Auto) 8.3 L [place] % (Auto) 7.7 Eos % (Auto) 0.0 Baso % (Auto) 0.0 L Lymph # (Auto) 0.52 L [place] # (Auto) 0.5 Eos # (Auto) 0.0 Baso # (Auto) 0.0 Abs Immat Gran (auto) 0.01 Absolute Neuts (auto) 5.2 Absolute Nucleated RBC 0.000 Band Neutrophils % Not Reportable Nucleated RBC % 0.0 Platelet Estimate Adequate Hypochromasia 2+ Anisocytosis 1+ Ovalocytes 1+ Schistocytes None seen PT 14.3 INR 1.1 APTT 35.8 Sodium 138 Potassium 4.0 Chloride 99 Carbon Dioxide 33 H Anion Gap 6 BUN 34 H Creatinine 1.77 H Estim Creat Clear Calc 33 Estimated GFR 38 L Glucose 101 Calcium 8.6 Quality VTE Prophylaxis VTE prophylaxis: mechanical ordered
--- NOTE | 2025-03-14 15:53 | PM.CNPUL ---
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 He has been off of treatment for mycobacteria for least a month. He was not able to tolerate azithromycin, rifabutin or ethambutol due to serious side effects. He is followed at [facility] infectious disease clinic. This admission appears to be related to an exacerbation of his underlying M kansasii. (2) Hemoptysis: Code(s): R04.2 - Hemoptysis Status: Acute Assessment and Plan: He had modest hemoptysis the day prior to admission and the day of admission. The coughing with bright red blood was not massive, it was several tbsp and then became less and dark brown. This appeared to be due to his pulmonary condition and not due to decompensated heart failure. (3) Obstructive sleep apnea: Code(s): G47.33 - Obstructive sleep apnea (adult) (pediatric) Status: Chronic Assessment and Plan: He is compliant with CPAP and oxygen at night. (4) Mycobacterium kansasii infection: Code(s): A31.0 - Pulmonary mycobacterial infection Status: Acute Assessment and Plan: Has had mycobacterium kansasii documented since (5) Chronic respiratory failure with hypoxia, on home oxygen therapy: Code(s): J96.11 - Chronic respiratory failure with hypoxia; Z99.81 - Dependence on supplemental oxygen Status: Acute Assessment and Plan: He has been on oxygen around the clock for several years. He has mild hypercapnia, severe COPD with recurrent resistant Pseudomonas infections Plan plan: 1) Continue Levaquin IV; add Meropenem 500 mg IV Q 12 hours for exacerbation of bronchiectasis with prior Pseudomonas aeruginosa. 2) Sputum studies; Gram stain c&s, extended respiratory pathogen panel, Urine antigen for Legionella and S. pneumococcus. 3) Cornet valve q.i.d for , airway clearance, bronchodilators, 3% NS. Mucomyst nebulized. 4) No ICS with FERNANDO; ICS makes FERNANDO worse. 5) Contact his ID clinician for most recent note. He recently failed FERNANDO treatment due to side effects for azithromycin 500 mg a day, Rifabutin 300 mg a day and ethambutol 1200 mg a day. History of Present Illness History of Present Illness Consult date: 03/14/25 Requesting physician: Bethany Reza MD Chief complaint: COPD Exacerbation/Hemoptysis Narrative: Pt was seen March 14, 2025 at 20:30 Room 258 NEW: Vik Hill is a 74-year-old man with shortness of breath and a cough with bloody sputum which is new. Hemoptysis started one day prior to admission on March 13. He is a patient in our practice, last office visit was 10/25/2024; he was admitted Sep 04 to Sep 11 with pneumonia, acute respiratory failure. He is followed at [facility] ID clinic for mycobacterium kansasii, has not been able to tolerate regimen of meds, azithromycin 500 mg /day caused diarrhea; rifabutin 300 mg p.o. daily. Ethambutol 1200 mg 3 times a week; he had side effects and had to quit all. His last ID visit was November 2024, and he has taken no mycobacterial meds for over a month. He generally stays at home. This past week, he went to [place] for the first time in 6 months. He is on IV Levaquin and oral prednisone. He has had increase eosinophils on prior CBC with diff, and has been on Dupixent. PMH: HTN, hyperlipemia; CAD, CKD stage 4, chronic respiratory failure on O2 at home, 2 L at rest, 4 L with exertion. Heart failure with preserved ejection fraction, pacemaker, HTN, bronchiectasis, Mycobacterium kansasii infection, multidrug resistant Pseudomonas aeruginosa, empyema status post (L) thoracotomy and decortication, peripheral vascular disease. He had a sternal fracture in May 2023 when he fell on his chest while holding something, and for this reason he could not tolerate vest therapy which was tried for airway clearance. DATA * 03/13/2025, ABG pH 7.416/pCO2 57.2, PO2 79.1, HC03 35.9, saturation 94.5% on oxygen 4 L Older ABG September 04, 2024 pH 7.47 pCO2 49.3 PO2 74.2 HC03 35.2 saturation 94.7% on 2 L ABGs prior to Aug 2024 did not shows hypercapnia * 03/13/2025 chest CTA; No evidence for pulmonary embolism in the central pulmonary arteries. Evaluation of peripheral pulmonary arteries limited. 2: Severe emphysema with bronchiectasis and mucous plugging. 3: Left-sided pulmonary nodules measuring 10 mm or less. Cannot exclude primary bronchogenic carcinoma or metastatic disease versus infectious/inflammatory process. 4: Patchy left lower lobe consolidation which may represent atelectasis, aspiration related inflammation or pneumonia. 5: Mediastinal and hilar lymphadenopathy which can be reactive or related to prior granulomatous disease or chronic inflammation. Differential diagnosis includes metastatic disease, smoking-related lymph node hyperplasia lymphoma. 10/25/2024:? This is a follow-up encounter from 06/07/2024 for GOLD grade 3 group B COPD, bronchiectasis, mycobacterial kansasii lung infection, and ANDRZEJ. On 06/07/2024, regarding his GOLD grade 3 group B COPD, had 1 outpatient COPD exacerbation and completely recovered.? Continued on Wixela 500-51 puff b.i.d., Spiriva Respimat 5 mcg q.h.s., guaifenesin 400 p.o. b.i.d., Zyrtec 10 q.day and Dupixent for his psoriatic-eczema, he was not routinely using the vest or flutter valve.? As prescribed using no oxygen at rest, 2 L with activity and 4 L at night.? CAT score 25, he continued with an aerobic exercise activity bike riding, resistance band and calisthenics.? Received his flu vaccine and will get the COVID vaccine.? Received RSV last month.? Given his M kansasii infection, I discontinue the inhaled corticosteroids and prescribed Stiolto Respimat. On 06/07/2024, regarding his bronchiectasis, unchanged on his CT scan on 07/13/2024 compared to 01/13/2024.? I encouraged vest treatment once a day.? I recommended he talk to his PCP regarding Dupixent and concurrent pulmonary M kansasii.? He was referred to the [facility] and this was the only medicine that helps the skin. On 06/07/2024, regarding his sputum from 03/06/24 and 03/07/24 with mycobacterium kansasii he was referred to [facility] who was waiting for sensitivities prior to scheduling. On 06/07/2024, regarding his ANDRZEJ, he was intolerant to CPAP mask with an [place] score of 8 and an overnight oximetry on 4 L with adequate oxygenation which he was continuing. 07/04/2024:? Drug sensitivities to patient's M kansasii available which were faxed to [facility].? Patient with an appointment on 09/18/2024. 07/22/2024:? CT scan of the chest with severe emphysema, worsening scattered nodules and small air pace opacities bilaterally compared to 01/13/2024.? Mild bronchiectasis with a lower lobe predominance.? 2.3 cm right kidney mass.? Of note, the patient had an ultrasound of the kidneys on 05/07/2024 which showed bilateral cysts with no solid mass or hydronephrosis. 09/04/2023 through 09/11/2023:? Patient admitted to [facility] with worsening SOB and treated for resistant Pseudomonas with meropenem and azithromycin.? Told me he was breathing better than he had in the last few months.? His phlegm was improving.? Room air saturations Patient improved and was 93%.? Pseudomonas in his sputum was sensitive to meropenem.? Four separate sputums were AFB smear negative.? Discharged on meropenem 1 g q.12 hours for total of 14 days, last dose 09/17/2024. 09/18/2024: [facility] infectious Disease Clinic note. Patient with a history of COPD, COVID 2019, recurrent pulmonary infections. Fall in 2022 with sternal fracture. Now O2 dependent in uses 2 L per nasal cannula at rest, 4 with activity. He has had a 34 lb weight loss since 04/25/2024. Productive cough. Tree-in-bud opacities for several years. AFB sputum 08/28/[address] scan 06/2024 showed increase in centrilobular nodules and bronchial wall thickening and areas of nodular consolidation compatible with worsening atypical mycobacterial infection along with severe emphysema. Admitted outside hospital earlier this month and is currently on IV meropenem for pneumonia he will finish the course this week. Assessment and plan. Patient with symptomatic and TM pulmonary disease. He meets criteria for treatment given his symptoms, radiologic findings of cavitary disease on imaging and reports of 2.6 by Adam positive for M kansasii. I have results for only 1 sputum with susceptibilities. His case is complicated by severe COPD with current pseudomonal pneumonia for which he is currently finishing up a course of meropenem. Discussed at length with patient the rationale for treatment, antibiotic course with potential adverse effects and length of therapy, and plans for close monitoring of disease and drug toxicity. He verbalized understanding and would like to start treatment today. Start NTM therapy as follows: Azithromycin 500 mg p.o. daily, rifabutin 300 mg p.o. daily. Ethambutol 1200 mg 3 times a week. Renally dosed based on creatinine clearance of 31 concern for toxicity. Will continue antibiotic therapy for minimum 12 months. AFB sputum every 1-2 months. Standing order sent [facility]. [facility] Test today. Visit with [facility] next month. Discussed importance of airway clearance. He has a flutter valve device at home. Working on getting a vest. He is not using hypertonic saline will defer to Pulmonary. In regards to his recurrent pseudomonal pulmonary infections I think he could consider a course of prolonged tobramycin his Pseudomonas is fluoroquinolone resistant. Will defer this decision to division toll wire chief. Labs today CBC, CMP, Emdina C antibodies given frequent travel to [place], return in 3 months. 09/24/24: I spoke to the patient and he is not using a vest therapy because he fell in May of 2023 and broke his sternum and tried to take a vest therapy after that and it caused him sternal pain. For the most part the patient is able to clear his secretions with albuterol nebulizers, guaifenesin and a flutter valve. At times he feels his phlegm is thick. We discussed the risks and benefits of saline nebulizers and we will give therapeutic trial of saline 3% nebulized 3 times a day p.r.n.. Prescription sent. 09/24/2024:? PFTs demonstrated very severe obstructive abnormality and compared to 02/20/2024 the post bronchodilator FEV1 decreased from 1.12 L to 0.86 L (29% predicted), post bronchodilator ratio 33%, unable to perform plethysmography.? DLCO compared to 02/20/2024 decreased from 9.0 to 7.3 (29% predicted).? Patient with worsening lung function will continue new treatment for M kansasii pulmonary disease. Today tells me that He has had no further hospitalizations since 09/11/2023. Since starting his and TM therapy on 09/18/2024 the patient states that he is feeling a little bit better. He says his breathing is better. He is producing less phlegm. The phlegm remains yellow and green with no hemoptysis. Is oxygenation is stable and he is using no oxygen at rest with saturations 92-93%. With activity on room air saturations are 85 and they quickly recover with 2 L. At night he is wearing 4 L.Patient has dyspnea on exertion walking room to room and today is in wheelchair. The patient denies fever, chills, rigors. One time a month he has a night sweat where he wakes up with a damn sure. Overall he says he has been losing weight over the last year and he thinks he is losing muscle mass because he is deconditioned.His weight today is 169 representing a 13 lb weight loss since 06/07/2024. The patient continues to take Stiolto Respimat 2.5 mcg at 2 puffs q.a.m., guaifenesin 800 mg p.o. q.12 hours, rescue albuterol nebulizer 1 time in the morning. Rescue albuterol inhaler 3 to 4 times a week. Cornet flutter valve 1 time a day. The patient tried normal saline nebulization for 3 days and this irritated him and made it is breathing were so he stopped. The patient fractured his sternum in and still has sternal pain with incomplete healing on his last CT scan from 07/18/2024 so he has not been using the vest. His CAT score today is 23. Patient is taking azithromycin 500 mg p.o. q.day, rifabutin 300 mg p.o. q.day and ethambutol 1200 mg p.o. q.day. he will follow up with [facility] ID on 12/18/2024. Patient did submit a sputum to [facility] last week. At last visit they did talk about the patient's Dupixent and the ID team felt that this was not contraindicated with his current condition. Patient is using 4 L nasal cannula at night says that he sleeps well an does have dreaming episodes. He does nap frequently during the day and his [place] score is 15. patient is up-to-date on his influenza vaccine, COVID booster and RSV vaccine. Vik Hill is a 73-year-old man known to our practice, last office visit with Dr Landeros was June 07, 2024. His pulmonary history includes a Left thoracotomy May 2021 for empyema with Strep intermedius; chronic respiratory failure on home oxygen 2 L at rest and 4 L with exertion, COPD, bronchiectasis with prior infections including Pseudomonas aeruginosa and mycobacteria kansasii colonization versus infection, waiting on his initial ID visit at [facility] ID clinic Sep 18. In January 2023, he had a similar admission with resistant Pseudomonas infection, went home with a PICC line to complete meropenem for 10 days. He is on Dupixent for eczema and psoriasis. He uses Wixela and tiotropium-olodaterol for COPD. He has been having a slow downward trajectory since June, getting more short of breath, having more sputum which is yellow-to green, with limitation of his exertion, now only able to walk across his house. At baseline, he coughs about 10 to 20 tissues per day with sputum the size of a quarter. In the last several weeks this is increased to 50 tissues per day, each one having a quarter size of sputum. He contacted our office August 28 with worsening symptoms for the 10 days prior, increased sputum and saturation 88% on 2 liters/minute. He was started on azithromycin and steroids with significant improvement but as soon as he quit taking this, his symptoms rebounded. He called the office on September 03, worse, and came to ER. His initial wbc was 7.9, now 10.8 on Sep 07. His sputum 09/04/24 = many WBC, no epithelial cells, moderate GN bacilli, normal oropharyngeal santiago present, light growth of Pseudomonas aeruginosa susceptibility test is pending. He tested negative for influenza, RSV, and COVID. Chest x-ray showed bibasilar atelectasis versus pneumonia, more on the left. The patient says that yesterday he was taken off of Lasix and his breathing was better, and today was put on it again in his breathing is worse. He used using a Cornet valve which definitely helps to expectorate sputum. DATA * 09/04/24; CXR = The cardiac silhouette is not enlarged. Left bipolar pacemaker. LUNGS: No effusions or pneumothorax. Minimal opacification the lung bases more on the left side. Underlying fibrotic changes. OTHER: No free air under the diaphragm. Degenerative changes of the spine. IMPRESSION: Bibasilar atelectasis versus pneumonia more on the left side. document embedded image * 03/06/24 and 03/07/24 sputa at [facility] grew mycobacterium kansasii is sensitive to rifabutin, rifampin amikacin, clarithromycin, linezolid, moxifloxacin. It is resistant to Septra, ciprofloxacin, doxycycline, and minocycline. Streptomycin is greater than 32 an clobazam mean is less than 0.015. 06/07/2024: This is a follow-up encounter from 02/02/2024 for GOLD grade 3 group B COPD, bronchiectasis, ANDRZEJ and mycobacterium kansasii infection. On 02/02/2024, regarding his GOLD grade 3 group B COPD. The patient was improving. MONTEZ was 1/8 of a block and this was worse after a fall with a fractured sternum. On Wixela 500-50 at 1 puff b.i.d. and Spiriva Respimat 5 mcg q.h.s., Zyrtec 10 and rescue albuterol inhaler nebulizers which she was using 0 to 3 times a day. He was using guaifenesin 400 b.i.d. and vest therapy 2 times a day. He was using his oxygen as prescribed: None at rest, 2 L with activity and he was wearing 2 L at night. I ordered PFTs, overnight oximetry on 2 L and recommended he use flutter valve if sputum is difficult to expectorate. I encouraged him to continue with pulmonary rehabilitation as he only had 1 session on 01/17/2024 where he exercised for 5 minutes on 2 L nasal cannula. On 02/02/2024, regarding his lower lobe bronchiectasis with nodular infiltrates, his previous workup in 2020 was unrevealing. I repeated immunoglobulins, CBC, Aspergillus IgE, HIV, rheumatoid factor, TOMAS panel, QuantiFERON GOLD, sputum for AFB x3. His baseline expectorations were 10 a day. On 02/02/2024, regarding his ANDRZEJ, he tells me he was tested 10 years ago but could not tolerate a CPAP mask. He has been on 2 L since. I ordered an overnight oximetry on 2 L. 02/08/2024: Overnight oximetry with 2 L nasal cannula with hypoxemia. Will repeat test on 4 L. 02/15/2024: Overnight oximetry on 4 L with adequate oxygenation. 02/17/2024: Immunoglobulins normal, Aspergillus IgE negative, TOMAS cascade positive for [employer] antibody at 2.7 with normal being less than 1. Patient had no clinical history of hand arthritis or swollen joints or myositis. 02/20/2024: PFTs demonstrated a severe obstructive abnormality with FEV1 1.12 L, 38% predicted, no bronchodilator response. Hyperinflation. DLCO severely decreased to remain mildly decreased when adjusted for alveolar volume. In comparison to previous pulmonary function test on 09/29/2021 there has been a significant decrease in the FEV1 with no other changes. 03/07/2024 QuantiFERON GOLD negative. 03/07/2024: Sputum with 3+ AFB. Id and sensitivities requested. 03/20/2024: Sputum from 03/07 with AFB growth. Id pending. Sensitivities requested. 03/29/2024: Sputum from 03/07 with mycobacterium kansasii 03/30/2024: Session 13 pulmonary rehab. Exercise time 13 minutes on 3 and 4 L nasal cannula oxygen 04/20/24: Sputum from 03/06 with mycobacterium kansasii. I called the patient and discussed his second positive mycobacterium kansasii sputum, now from 03/06/2024 and 03/07/2024. He states that his breathing does limit him and limits his ADLs. He has stable MONTEZ where he can walk about 20 minutes on oxygen and this is been stable for the last 5 years. He denies fever, change in his cough or phlegm production. Given his worsening FEV1, increase oxygen requirements at night, worsening CT scan, he is in agreement to be referred to [facility]. Referral placed and they are awaiting sensitivities prior to being scheduled. 04/20/2024: 6 minute walk on 2 L nasal cannula. Patient ambulated 213 m (improved from 122 m on 01/23/24). Raul saturation 91%. Today he tells me that He has had no hospitalizations since 02/02/2024. Two and half weeks ago he cut the grass and 1 day after that he noticed shortness of breath and was treated by his PCP with prednisone for 5 days and completely recovered. Currently the patient states he has more phlegm production over the last 4 months. His activity level size remains stable. He completed 13 sessions of pulmonary rehab and then decided to do exercise at home. Two to 3 times a week he works out for an hour. He rides a bike for 20 minutes with a heart rate that goes from 75-80 up to 110-120. After that he does 20 minutes of resistance bands. And after that he does 20 minutes of callus statics. Overall he has noticed no worsening shortness of breath with these activities. The patient denies fever. The patient has some chills. The patient has night sweats less than 1 time a month. The patient has gained weight and gained 1 lb over the last 4 months. The patient continues on Wixela 500-50 at 1 puff b.i.d., Spiriva Respimat 2.5 at 2 puffs q.h.s., guaifenesin 400 mg p.o. b.i.d., Zyrtec 10 mg a day and Dupixent for his psoriasis-eczema. The patient uses rescue albuterol approximately 2 times a month. The patient is not routinely using the vest or flutter valve. The patient is using no oxygen at rest and his home pulse oximetry readings are 91%. He is wearing 2 L with activity and his home pulse oximetry numbers are 88-92%. The patient continues to use 4 L at night as prescribed. The patient's CAT score today is 25. The patient has received the influenza vaccine this fall. The patient will get his COVID vaccine later this month. The patient received the RSV vaccine last year. prior visits 02/02/2024: This is a follow-up encounter from 11/21/2023 for COPD On 11/21/2023, regarding his COPD, he had cough with phlegm production. His MONTEZ was worse and he could only take a trash out to the street and come back. Using rescue nebulizer of albuterol 1-3 times a week. He was on Wixela 500-50 q.12 hours. He takes Dupixent for his eczema and psoriasis. He was treated for COPD exacerbation with a prednisone taper. Using 2 L with exertion and none at rest. Sputum for bacteria, AFB and fungal was ordered for his chronic lower lobe infiltrates. Plan for 6 minute walk and PFTs when he was improved. Consider daliresp in the future. On 11/21/2023, he had multiple pulmonary nodules on his CT scan of the chest 06/30/2023 left greater than right and CT abdomen on 10/15/23 with recommendation to repeat in 3 months on 01/13/2024. 11/22/2023: Sputum demonstrated few epithelial cells, moderate mixed bacterial and growth of normal santiago. 12/29/2023: PCP office visit note states he continues to have difficulty with mobility due to SOB and increased oxygen demand. Despite finishing his oral steroid taper he continued to struggle with MONTEZ. He has fatigue during the day and has leg cramps at night. His attempts to increase his activity or limited by his breathing and peripheral arterial disease in his left leg. 2 L nasal cannula saturation 96%. Lungs were clear to auscultation he was referred to Pulmonary Rehabilitation. 01/13/2024: CT scan of the chest demonstrated severe centrilobular emphysema all lung colvin, bronchiectasis in the bases with mucus plugging, worsening chronic lung disease consistent with chronic infection. 01/23/2024: 6 minute walk on 2 L nasal cannula with baseline saturation 97% and raul saturation 90% with 122 m ambulated. 01/24/2024: Session to of pulmonary rehabilitation. Total exercise time 20 minutes. 01/27/2024: cardiac catheterization at [facility] severe single-vessel coronary artery disease with chronic total occlusion proximal RCA with [id number] collaterals. No significant obstructive disease in the left coronary system. LVEDP 10. Systemic hypertension. Plan continuation of optimal medical treatment including antiplatelet treatment, antianginals, statin. Need for intervention on chronic total occlusion of RCA to be determined based on clinical course. Today he tells me thatafter he received his prednisone at last visit he was breathing much better. The patient has had no hospitalizations or exacerbations since November 21, 2023. Overall the patient states that he is doing better. He is now walking 1/8 of a block and he is getting stronger and able to do more chores around the house. He is able to do his grooming, he can go to the grocery store. Before his fall with sternal fracture he was able to walk 1 block. He does use a cane and has balance issues. He has 1 session of cardiac pulmonary rehab and will continue this in the future. The patient makes 10 phlegm expectorations a day and this is unchanged for him. He denies fever, chills, rigors. Currently the patient is taking Wixela 500-50 at 1 puff b.i.d., Spiriva Respimat 2.5 at 2 puffs q.h.s., albuterol rescue nebs 0 to 3 times a day usually 0 times a day. Albuterol inhaler rescue 1 time in 2 months. Zyrtec 10 mg p.o. q.day, guaifenesin 400 mg p.o. b.i.d., vest therapy 2 times a day. Currently the patient is wearing no oxygen at rest with measured saturations 90-94% at home. With activity wears 2 L. He is wearing 2 L at night. The patient is not smoking or exposed to secondhand smoke. The patient's sinuses are currently controlled. The patient has untreated ANDRZEJ his cannot tolerate the CPAP. He says he sleeps much better with the 2 L nasal cannula on. CAT score today is 24. the patient states he received his flu vaccine, COVID booster and RSV in the fall of 2022. He has received a pneumonia shot. Review of Systems Review of Systems: He has had some increase in LE swelling, adjusted his diuretic, this improved. He has had adequate oral intake, no vomiting. All systems reviewed & are unremarkable except as noted in HPI and below PMFSH Past Medical History Medical History Coronary artery disease severe single vessel coronary artery disease with chronic total occlusion of the proximal RCA with [id number] collaterals Chronic kidney disease, stage 4 (severe) Chronic respiratory failure with hypoxia, on home oxygen therapy Pseudomonas respiratory infection Femoral artery stenosis, left Heart failure with preserved ejection fraction echocardiogram in November 2021 showed normal LV size and function with an EF measured at 66% and impaired diastolic relaxation Chronic anemia Urethral stricture Empyema of left pleural space (05/2021) Pleural fluid grew out strep intermedius and staph hominis. Status post thoracotomy with decortication. Benign prostatic hyperplasia Peripheral vascular disease Status post right carotid endarterectomy. Status post left lower extremity stent. COVID-19 (04/2020) AV block status post [employer] pacemaker placement Chronic kidney disease, stage 3 Psoriasis Eczema Gastroesophageal reflux disease COPD with emphysema Loculated empyema Obstructive sleep apnea On 2 L nasal cannula at nighttime Hypertension Arthritis Surgical History Surgical History History of cardiac catheterization (01/2024) severe single vessel coronary artery disease with chronic total occlusion of the proximal RCA with [id number] collaterals History of dilation of urethra History of thoracotomy (05/2021) Left thoracotomy with decortication for empyema. History of right-sided carotid endarterectomy History of tonsillectomy Status post peripheral artery angioplasty with insertion of stent Left lower extremity. Status post placement of cardiac pacemaker (06/2020) History of hip replacement Bilaterally with revision History of herniorrhaphy Family History Family History Father Heart disease Heart attack Hypertension Cerebrovascular accident Mother Diabetes mellitus Hypertension Asthma Heart disease Sibling Hypertension Social History Social History Social History: Surrogate medical decision maker: Michelle Schroeder, sister. Code status: Full code. Smoking packs per day: 2 Smoking cigarettes per day: 40.0 Years smoked: 40 Smoking pack-years: 80.00 Smoking status: Former smoker Tobacco type: cigarettes Second hand tobacco smoke exposure: Yes Smoking end date: 08/22/09 Alcohol intake: never Alcohol use details: rarely Substance use: never Substance use type: does not use Do You Feel Safe in your Home?: Yes Lack of Transportation: No Lack of Food: Never True Current Housing: I Have Housing Concerned About Future Housing: No Difficulty Paying Gas/Electric Bills: No Difficulty Paying for Meds: YES Currently Unemployed: No Education: Bachelor's Degree Difficulty w/ Childcare or Family Care: No Living arrangements: alone Additional living arrangements comments: . He has 3 children. 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 Spiritual care concerns: No Agree to blood products: Yes Meds Home Medications and Allergies Home Medications ?Medication ?Instructions ?Recorded ?Confirmed ?Type acetaminophen 500 mg tablet 1,000 mg PO Q6H PRN Mild Pain 06/02/21 03/13/25 History (Scale Score 1-4) pantoprazole 40 mg tablet,delayed 40 mg PO DAILY 01/11/22 03/13/25 History release doxepin 25 mg capsule 25 mg PO QHS PRN Sleep 05/15/22 03/13/25 History dupilumab 300 mg/2 mL subcutaneous 300 mg (2 mL) subcut .COMPLEX #4 mL 11/25/22 03/13/25 Rx syringe ([email or web address]) tamsulosin 0.4 mg capsule 0.8 mg PO HS 01/24/23 03/13/25 History clopidogrel 75 mg tablet 75 mg PO DAILY 07/21/23 03/13/25 History amlodipine 10 mg tablet 10 mg PO HS 02/02/24 03/13/25 History finasteride 5 mg tablet 5 mg PO DAILY 04/30/24 03/13/25 History carvedilol 25 mg tablet See Rx Instructions .Route 06/13/24 03/13/25 Rx .COMPLEX #200 tabs potassium chloride 10 mEq 10 meq PO DAILY #100 caps 07/23/24 03/13/25 Rx capsule,extended release albuterol sulfate 2.5 mg/3 mL 2.5 mg (3 mL) inhalation Q4-6H PRN 08/28/24 03/13/25 Rx (0.083 %) solution for nebulization SOB #180 mL albuterol sulfate 90 mcg/actuation 2 puff inhalation Q6H PRN 09/04/24 03/13/25 History aerosol inhaler shortness of breath or wheezing cetirizine 10 mg capsule (Zyrtec) 10 mg PO HS PRN allergy symptoms 09/04/24 03/13/25 History multivitamin-ferrous 1 tablet PO DAILY 09/04/24 03/13/25 History fumarate-folic acid 18 mg-400 mcg tablet (Centrum) tiotropium 2.5 mcg-olodaterol 2.5 See Rx Instructions .Route 12/06/24 03/13/25 Rx mcg/actuation mist for inhalation .COMPLEX #12 grams (Stiolto Respimat) atorvastatin 80 mg tablet (Lipitor) 80 mg PO DAILY 01/29/25 03/13/25 History cilostazol 50 mg tablet 50 mg PO BID 01/29/25 03/13/25 History furosemide 40 mg tablet 40 mg PO QAM 01/29/25 03/13/25 History gabapentin 300 mg capsule 300 mg PO DAILY PRN neuropathy 01/29/25 03/13/25 History tramadol 50 mg tablet 50 mg PO Q6H PRN pain 01/29/25 03/13/25 History triamcinolone acetonide 0.1 % 1 applic topical BID PRN itching 01/29/25 03/13/25 History topical cream Allergies Allergy/AdvReac Type Severity Reaction Status Date / Time oxycodone AdvReac Severe severe Verified 03/13/25 12:41 constipation doxycycline AdvReac Unknown Nausea and Verified 03/13/25 12:41 Vomiting Vital Signs Vital Signs - 24 hr 03/13/25 19:36 03/13/25 19:45 03/13/25 20:00 Temperature Pulse Rate 85 85 Respiratory Rate 22 H 22 H Blood Pressure Pulse Oximetry 95 95 Oxygen Delivery Nasal Cannula Nasal Cannula Oxygen Flow Rate 4 4 03/13/25 20:23 03/13/25 21:47 03/14/25 00:10 Temperature 36.7 C 36.7 C Pulse Rate 85 77 76 Respiratory Rate 16 16 Blood Pressure 152/69 H 142/65 H Pulse Oximetry 97 94 Oxygen Delivery Oxygen Flow Rate 03/14/25 06:04 03/14/25 08:24 03/14/25 08:24 Temperature 36.4 C Pulse Rate 65 72 72 Respiratory Rate 16 20 20 Blood Pressure 157/60 H Pulse Oximetry 97 93 Oxygen Delivery Nasal Cannula Oxygen Flow Rate 4 03/14/25 08:31 03/14/25 09:39 03/14/25 09:40 Temperature Pulse Rate 78 78 Respiratory Rate 20 Blood Pressure Pulse Oximetry 97 Oxygen Delivery Nasal Cannula Oxygen Flow Rate 4 03/14/25 12:50 03/14/25 15:13 Temperature 36.2 C L 36.2 C L Pulse Rate 86 99 Respiratory Rate 18 18 Blood Pressure 120/60 153/79 H Pulse Oximetry 98 96 Oxygen Delivery Oxygen Flow Rate Exam Narrative: GEN: Alert, oriented, not in distress. He is sitting up in a chair, nasal cannula O2 4 L/min sat 97% HEENT: pupils are equal, EOMI, symmetrical face; oral membranes moist, nasal passages show minimal blood right nostril nasal septum, not enough to account for all the blood he expectorated. Mallampati II airway NECK: Trachea is midline CHEST: Equal air entry, symmetric excursion, scattered rhonchi loudest in the left base CV: Regular S1S2 no m/g/r ABD : (+) bowel sounds Extremities : no clubbing, cyanosis, and no edema PSYCH: normal thought and speech. Results Laboratory Findings 03/15/25 04:37 03/15/25 04:37 ABG, PT/INR, D-dimer: ABG ABG pH 7.416 (7.350-7.450) 03/13/25 07:39 ABG pCO2 57.2 mmHg (35.0-45.0) H 03/13/25 07:39 ABG pO2 79.1 mmHg (80.0-100.0) L 03/13/25 07:39 ABG O2 Saturation 95.6 % (95.0-100.0) 03/13/25 07:39 PT/INR, D-dimer PT 14.3 Seconds (11.1-14.7) 03/14/25 04:59 INR 1.1 03/14/25 04:59 Abnormal lab findings: Abnormal Labs 03/13/25 03/13/25 03/14/25 07:39 07:40 04:59 RBC 4.07 L 3.66 L Hgb 10.3 L 9.3 L Hct 36.1 L 31.6 L MCH 25.3 L 25.4 L MCHC 28.5 L 29.4 L RDW 15.3 H 15.2 H MPV 11.2 H Neut % (Auto) 86.0 H 83.8 H Lymph % (Auto) 7.0 L 8.3 L Baso % (Auto) 0.0 L Lymph # (Auto) 0.53 L 0.52 L ABG pCO2 57.2 H ABG pO2 79.1 L ABG HCO3 35.9 H ABG O2 Content 14.3 L Total Hemoglobin 10.7 L Carbon Dioxide 36 H 33 H BUN 28 H 34 H Creatinine 1.77 H 1.77 H Estimated GFR 38 L 38 L Lactic Acid 0.5 L
--- NOTE | 2025-03-14 18:26 | PCRCNOTE ---
Window of time for administration has passed. See next scheduled administration.
[2025-03-14] MEDS: TAMSULOSIN HCL 0.4 MG CAPSULE 0.8 MG PO (21:57)
[2025-03-14] MEDS: GABAPENTIN 300 MG CAPSULE PO (21:57)
[2025-03-14] MEDS: SODIUM CHLORIDE 0.9% IVPB (22:39)
[2025-03-14] MEDS: MEROPENEM IVPB (22:39)
[2025-03-14] MEDS: ACETAMINOPHEN 325 MG TABLET 650 MG PO (22:45)
[2025-03-14] MEDS: ALBUTEROL SULFATE NEB 2.5 MG/3 ML INH INHALATION (23:20)
[2025-03-14] MEDS: ACETYLCYSTEINE 20% INHAL SOLN 800 MG/4 ML VIAL 200 MG INHALATION (23:20)
[2025-03-15] VITALS (17 sets, daily range): BP systolic 127–153; BP diastolic 62–98; PULSE 68–93; RESP 16–20; TEMP 36.2–36.7; O2SAT 93–98
[2025-03-15] MEDS: IPRATROPIUM 0.5 MG/ALBUTEROL SULFATE 2.5 MG AMPUL.NEB 3 ML INHALATION ×4 (03:08→21:37)
[2025-03-15 05:00] LABS: Hematocrit 30.7 % (42.0-52.0); Hemoglobin 9.0 g/dL (14.0-18.0); Immature Granulocyte Percent A 0.5 % (0-0.5); Lymphocytes Absolute Auto 0.46 K/mm3 (0.9-3.2); Mean Corpuscular HGB Conc 29.3 g/dl (32-36); Mean Corpuscular Hemoglobin 25.1 pg (26-34); Mean Corpuscular Volume 85.5 fl (80-100); Nucleated Red Blood Cells Absolute Auto 0.000 K/mm3 (0.0-0.012); Nucleated Red Blood Cells Perc 0.0 % (0.0-0.2); Platelet Count Result 162 k/mm3 (150-375); Red Blood Count 3.59 M/mm3 (4.6-6.20); White Blood Count 6.6 K/mm3 (4.5-10.0)
[2025-03-15 05:20] LABS: Alanine Aminotransferase 13 U/L (6-50); Albumin Level 3.5 g/dL (3.5-5.1); Alkaline Phosphatase 90 U/L (38-126); Aspartate Amino Transferase 27 U/L (17-59); Bilirubin,Total 0.1 mg/dL (0.2-1.3); Blood Urea Nitrogen 43 mg/dL (9-20); Carbon Dioxide 33 mmol/L (22-30); Estimated CRCL calculation 30 ml/min; Estimated Glomerular Filt Rate 35; Magnesium 2.1 mg/dL (1.6-2.3); Sodium 134 mmol/L (137-145); Total Protein 6.7 g/dL (6.3-8.2)
[2025-03-15 05:25] LABS: Band Neutrophils Percent 0 % (0-6)
[2025-03-15 05:26] LABS: Anisocytosis 1+; Hypochromasia 1+; Ovalocytes 1+; Schistocytes None Seen
[2025-03-15 05:33] LABS: Anion Gap 3 mmol/L (4-12); Chloride 98 mmol/L (98-107); Potassium 3.9 mmol/L (3.4-5.0)
[2025-03-15 06:17] LABS: Calcium 8.4 mg/dL (8.4-10.2); Glucose 122 mg/dL (65-110)
[2025-03-15] MEDS: UMECLIDINIUM/VILANTEROL 62.5-25 MCG ELLIPTA 1 PUFF INHALATION (08:20)
[2025-03-15] MEDS: FINASTERIDE 5 MG TABLET PO (10:06)
[2025-03-15] MEDS: ATORVASTATIN 40 MG TABLET 80 MG PO (10:06)
[2025-03-15] MEDS: guaiFENesin 12 HR 600 MG TABCR 1200 MG PO ×2 (10:06→20:51)
[2025-03-15] MEDS: CLOPIDOGREL BISULFATE 75 MG TABLET PO (10:06)
[2025-03-15] MEDS: FUROSEMIDE 40 MG TABLET PO (10:06)
[2025-03-15] MEDS: DOCUSATE SODIUM 100 MG CAPSULE PO (10:07)
[2025-03-15] MEDS: SODIUM CHLORIDE 0.9% IVPB ×2 (10:13→23:26)
[2025-03-15] MEDS: MEROPENEM IVPB ×2 (10:13→23:26)
[2025-03-15] MEDS: levoFLOXacin 750 MG/D5W 150 ML 750 MG/150 ML BAG 100 MG IVPB (10:18)
--- NOTE | 2025-03-15 12:41 | P.PNIM_ITS ---
Progress Note: A&P Assessment and Plan (1) Hemoptysis: Code(s): R04.2 - Hemoptysis Status: Acute Assessment and Plan: Pulmonology consulted recommendations pending Hold anticoagulation (2) COPD exacerbation: Code(s): J44.1 - Chronic obstructive pulmonary disease with (acute) exacerbation Status: Acute Assessment and Plan: IV Levaquin and Meropenem DuoNeb Guaifenesin Steroids (3) Pneumonia: Code(s): J18.9 - Pneumonia, unspecified organism Status: Acute Assessment and Plan: IV Levaquin and Meropenem monitor cultures (4) Multiple pulmonary nodules determined by computed tomography of lung: Code(s): R91.8 - Other nonspecific abnormal finding of lung field Status: Acute Assessment and Plan: Left-sided pulmonary nodules measuring 10 mm or less. Cannot exclude primary bronchogenic carcinoma or metastatic disease versus infectious/inflammatory process. awaiting pulm eval (5) Heart failure with preserved ejection fraction: Code(s): I50.30 - Unspecified diastolic (congestive) heart failure Status: Acute Assessment and Plan: Restart home Lasix no need for IV Lasix patient is euvolemic (6) Coronary artery disease: Qualifiers: Coronary Disease-Associated Artery/Lesion type: unspecified vessel or lesion type [place] vs. transplanted heart: [place] heart Associated angina: without angina Qualified Code(s): I25.10 - Atherosclerotic heart disease of [place] coronary artery without angina pectoris Code(s): I25.10 - Atherosclerotic heart disease of [place] coronary artery without angina pectoris Status: Acute Assessment and Plan: Restart Lipitor, Coreg, Plavix, (7) Chronic kidney disease, stage IV (severe): Code(s): N18.4 - Chronic kidney disease, stage 4 (severe) Status: Chronic Assessment and Plan: Avoid nephrotoxic medications (8) BPH (benign prostatic hyperplasia): Qualifiers: Lower urinary tract symptom presence: unspecified whether lower urinary tract symptoms present Qualified Code(s): N40.0 - Benign prostatic hyperplasia without lower urinary tract symptoms Code(s): N40.0 - Benign prostatic hyperplasia without lower urinary tract symptoms Status: Acute Assessment and Plan: Continue Proscar and Flomax Plan Bronchiectasis exacerbation and pneumonia Continue Levaquin and Meropenem Monitor cultures CT chest reviewed FERNANDO Patient was unable to tolerate Azithromycin and Rifabutin and Ethambutol due adverse effects Pulmonology following will speak with patient's ID from [facility] DVT prophylaxis SCDs, no AC due to hemoptysis Subjective Date/time seen: 03/15/25 12:41 Interval history: Comfortable at bedside Hemoptysis improving alnown patient of Dr Ponce and also follows ith ID at [facility] Review of Systems Review of Systems: 12 systems were reviewed and are negativ e except for as per HPI. Exam Narrative: General: well appearing, appears stated age. HEENT: normocephalic, atraumatic. Mucous membranes moist. EOMI, PERRLA, bilateral sclera anicteric, no conjunctival injection. Neck supple without JVD, lymphadenopathy, or bruit. Respiratory: clear to ascultation bilaterally. No rales/rhonic/wheezes. Cardiovascular: Regular rate and rhythm, normal S1-S2 upon ascultation. No murmurs, rubs, or clicks. PMI is nondisplaced, capillary refill less than 3 second. Abdomen: Soft, round, no pulsatile masses, nondistended and nontender. No rebound, no guarding. No CVA tenderness, no hepatosplenomegaly. Bowel sounds present to all four quadrants. No high pitch or tinkling sounds, resonant to percussion. Extremities: No cyanosis, clubbing, Pulses are palpable 2/2. Active ROM to all four extremities. 1+ pedal edema Neuro: Alert and orientated x 4. PERRLA. Cranial nerves 2-12 intact without focal deficit. Skin: Warm, dry, and intact, without rash, erythema, or lesion. Psych: pleasant, cooperative, normal speech, normal affect, no hallucinations, no dysarthia Objective Data Vital Signs Vital Signs: Vital Signs - 24 hr 03/14/25 12:50 03/14/25 15:13 03/14/25 19:33 Temperature 97.2 F L 97.1 F L Pulse Rate 86 99 99 Respiratory Rate 18 18 20 Blood Pressure 120/60 153/79 H Pulse Oximetry 98 96 Oxygen Delivery Oxygen Flow Rate Fraction of Inspired Oxygen 03/14/25 19:36 03/14/25 19:40 03/14/25 20:00 Temperature Pulse Rate 99 98 Respiratory Rate 20 18 Blood Pressure Pulse Oximetry 97 97 Oxygen Delivery Nasal Cannula Nasal Cannula Oxygen Flow Rate 4 4 Fraction of Inspired Oxygen 03/14/25 20:00 03/14/25 21:56 03/14/25 23:20 Temperature 97.7 F Pulse Rate 74 98 74 Respiratory Rate 14 118 H Blood Pressure 158/67 H Pulse Oximetry 99 Oxygen Delivery Oxygen Flow Rate Fraction of Inspired Oxygen 03/15/25 00:00 03/15/25 03:11 03/15/25 03:12 Temperature 98.0 F Pulse Rate 68 79 Respiratory Rate 16 18 Blood Pressure 153/66 H Pulse Oximetry 96 94 Oxygen Delivery Nasal Cannula Oxygen Flow Rate 4 Fraction of Inspired Oxygen 03/15/25 04:46 03/15/25 08:00 03/15/25 08:20 Temperature 97.7 F 97.4 F L Pulse Rate 90 68 82 Respiratory Rate 16 20 18 Blood Pressure 152/78 H 140/62 Pulse Oximetry 95 93 Oxygen Delivery Oxygen Flow Rate Fraction of Inspired Oxygen 03/15/25 08:20 03/15/25 08:28 03/15/25 10:06 Temperature Pulse Rate 85 80 Respiratory Rate 18 Blood Pressure Pulse Oximetry 94 Oxygen Delivery Nasal Cannula Oxygen Flow Rate 4 Fraction of Inspired Oxygen 36 03/15/25 11:42 Temperature 97.3 F L Pulse Rate 77 Respiratory Rate 20 Blood Pressure 127/98 H Pulse Oximetry 96 Oxygen Delivery Oxygen Flow Rate Fraction of Inspired Oxygen Intake/Output Intake/Output: Intake & Output 03/12/25 03/13/25 03/14/25 03/15/25 23:59 23:59 23:59 23:59 Intake Total 2180 2320 550 Output Total 150 1350 700 Balance 2030 970 -150 Meds/Results Medications: Active Medications Generic Name Dose Route Start Last Admin Trade Name Freq PRN Reason Stop Dose Admin Acetaminophen 650 mg 03/13/25 10:51 03/14/25 22:45 Acetaminophen 325 Mg Tablet PO 650 mg Q4H PRN Administration Mild Pain (1-3) or Fever Acetylcysteine 200 mg 03/14/25 22:00 03/15/25 07:55 Acetylcysteine 20% Inhal Soln 800 Mg/4 Ml Vial INHALATION Not Given Q8HR JUSTIN Albuterol 2.5 mg 03/14/25 22:51 03/14/25 23:20 Albuterol Sulfate Neb 2.5 Mg/3 Ml Inh INHALATION 2.5 mg Q6HRT PRN Administration Shortness Of Breath Albuterol/Ipratropium 3 ml 03/15/25 08:00 03/15/25 08:20 Ipratropium 0.5 Mg/Albuterol Sulfate 2.5 Mg Ampul.Neb 3 Ml INHALATION 3 ml 0800,1400,2000 JUSTIN Administration Amlodipine Besylate 10 mg 03/13/25 21:00 03/14/25 21:56 Amlodipine Besylate 10 Mg Tablet PO 10 mg HS JUSTIN Administration Atorvastatin Calcium 80 mg 03/14/25 09:00 03/15/25 10:06 Atorvastatin 40 Mg Tablet PO 80 mg DAILY JUSTIN Administration Carvedilol 25 mg 03/13/25 21:00 03/15/25 10:06 Carvedilol 25 Mg Tablet BY MOUTH 25 mg Q12HR JUSTIN Administration Clopidogrel Bisulfate 75 mg 03/14/25 09:00 03/15/25 10:06 Clopidogrel Bisulfate 75 Mg Tablet PO 75 mg DAILY JUSTIN Administration Docusate Sodium 100 mg 03/14/25 09:00 03/15/25 10:07 Docusate Sodium 100 Mg Capsule PO 100 mg DAILY JUSTIN Administration Finasteride 5 mg 03/14/25 09:00 03/15/25 10:06 Finasteride 5 Mg Tablet PO 5 mg DAILY JUSTIN Administration Furosemide 40 mg 03/14/25 09:00 03/15/25 10:06 Furosemide 40 Mg Tablet PO 40 mg QAM JUSTIN Administration Gabapentin 300 mg 03/13/25 13:02 03/14/25 21:57 Gabapentin 300 Mg Capsule PO 300 mg DAILY PRN Administration neuropathy Guaifenesin 1,200 mg 03/13/25 21:00 03/15/25 10:06 Guaifenesin 12 Hr 600 Mg Tabcr PO 1,200 mg Q12HR JUSTIN Administration Levofloxacin/Dextrose 750 mg in 150 mls @ 100 mls/hr 03/13/25 11:15 03/15/25 10:18 Levaquin 750 Mg/D5w 150 Ml IVPB 100 mls/hr Q48H JUSTIN Administration Meropenem 1,000 mg/ Sodium 100 mls @ 200 mls/hr 03/14/25 23:00 03/15/25 10:43 Chloride IVPB Infused Q12H [facility] Infusion Loratadine 10 mg 03/13/25 13:11 Loratadine 10 Mg Tablet PO HS PRN allergy symptoms Prednisone 40 mg 03/14/25 08:00 03/15/25 10:06 Prednisone 20 Mg Tablet PO 40 mg DAILY@0800 [facility] Administration Sodium Chloride 6 ml 03/15/25 05:00 03/15/25 07:55 Sodium Chlor 3% 15 Ml Neb (Respiratory Therapy) INHALATION Not Given DAILY@0500 [facility] Tamsulosin HCl 0.8 mg 03/13/25 21:00 03/14/25 21:57 Tamsulosin Hcl 0.4 Mg Capsule PO 0.8 mg HS JUSTIN Administration Tramadol HCl 50 mg 03/13/25 13:02 Tramadol Hcl (*Crx) 50 Mg Tablet PO Q6H PRN pain 4-6 Umeclidinium/Vilanterol 1 puff 03/14/25 08:00 03/15/25 08:20 Umeclidinium/Vilanterol 62.5-25 Mcg Ellipta INHALATION 1 puff DAILYRT JUSTIN Administration Radiology Results: ITS Impressions Chest X-Ray 03/13/25 08:56 Impression: 1: Stable chronic interstitial lung disease with chronic left pleural thickening/effusion. No significant interval change. Chest CTA 03/13/25 09:16 IMPRESSION: 1. No evidence for pulmonary embolism in the central pulmonary arteries. Evaluation of peripheral pulmonary arteries limited. 2: Severe emphysema with bronchiectasis and mucous plugging. 3: Left-sided pulmonary nodules measuring 10 mm or less. Cannot exclude primary bronchogenic carcinoma or metastatic disease versus infectious/inflammatory process. 4: Patchy left lower lobe consolidation which may represent atelectasis, aspiration related inflammation or pneumonia. 5: Mediastinal and hilar lymphadenopathy which can be reactive or related to prior granulomatous disease or chronic inflammation. Differential diagnosis includes metastatic disease, smoking-related lymph node hyperplasia lymphoma. Labs Labs: Laboratory Results - last 24 hr 03/15/25 04:37 WBC 6.6 RBC 3.59 L Hgb 9.0 L Hct 30.7 L MCV 85.5 MCH 25.1 L MCHC 29.3 L RDW 15.3 H Plt Count 162 MPV 9.6 Immature Gran % (Auto) 0.5 Neut % (Auto) 85.2 H Lymph % (Auto) 7.0 L Simpson % (Auto) 7.3 Eos % (Auto) 0.0 Baso % (Auto) 0.0 L Lymph # (Auto) 0.46 L Simpson # (Auto) 0.5 Eos # (Auto) 0.0 Baso # (Auto) 0.0 Abs Immat Gran (auto) 0.03 Absolute Neuts (auto) 5.6 Absolute Nucleated RBC 0.000 Band Neutrophils % 0 Nucleated RBC % 0.0 Platelet Estimate Adequate Hypochromasia 1+ Anisocytosis 1+ Ovalocytes 1+ Schistocytes None seen Sodium 134 L Potassium 3.9 Chloride 98 Carbon Dioxide 33 H Anion Gap 3 L BUN 43 H Creatinine 1.92 H Estim Creat Clear Calc 30 Estimated GFR 35 L Glucose 122 H Lactic Acid 0.6 L Calcium 8.4 Magnesium 2.1 Total Bilirubin 0.1 L AST 27 ALT 13 Alkaline Phosphatase 90 Total Protein 6.7 Albumin 3.5 Quality VTE Prophylaxis VTE prophylaxis: mechanical ordered
[2025-03-15] MEDS: ACETYLCYSTEINE 20% INHAL SOLN 800 MG/4 ML VIAL 200 MG INHALATION ×2 (15:26→21:37)
[2025-03-15] MEDS: TAMSULOSIN HCL 0.4 MG CAPSULE 0.8 MG PO (20:51)
[2025-03-15] MEDS: GABAPENTIN 300 MG CAPSULE PO (20:54)
[2025-03-15] MEDS: ACETAMINOPHEN 325 MG TABLET 650 MG PO (20:54)
[2025-03-16] VITALS (15 sets, daily range): BP systolic 132–158; BP diastolic 58–78; PULSE 67–81; RESP 16–20; TEMP 36.3–36.8; O2SAT 91–98
[2025-03-16 00:05] LABS: Influenza A QL RT-PCR Negative (Negative); Influenza B QL RT-PCR Negative (Negative); RSV RNA, RT-PCR Negative (Negative); SARS-CoV-2 RNA PCR Negative (Negative)
[2025-03-16 05:25] LABS: Hematocrit 32.3 % (42.0-52.0); Hemoglobin 9.4 g/dL (14.0-18.0); Immature Granulocyte Percent A 0.5 % (0-0.5); Lymphocytes Absolute Auto 0.50 K/mm3 (0.9-3.2); Mean Corpuscular HGB Conc 29.1 g/dl (32-36); Mean Corpuscular Hemoglobin 25.1 pg (26-34); Mean Corpuscular Volume 86.1 fl (80-100); Nucleated Red Blood Cells Absolute Auto 0.000 K/mm3 (0.0-0.012); Nucleated Red Blood Cells Perc 0.0 % (0.0-0.2); Platelet Count Result 166 k/mm3 (150-375); Red Blood Count 3.75 M/mm3 (4.6-6.20); White Blood Count 10.7 K/mm3 (4.5-10.0)
[2025-03-16 05:46] LABS: Alanine Aminotransferase 16 U/L (6-50); Albumin Level 3.5 g/dL (3.5-5.1); Alkaline Phosphatase 86 U/L (38-126); Anion Gap 7 mmol/L (4-12); Aspartate Amino Transferase 27 U/L (17-59); Bilirubin,Total 0.3 mg/dL (0.2-1.3); Blood Urea Nitrogen 44 mg/dL (9-20); Calcium 8.4 mg/dL (8.4-10.2); Carbon Dioxide 30 mmol/L (22-30); Chloride 101 mmol/L (98-107); Estimated CRCL calculation 36 ml/min; Estimated Glomerular Filt Rate 42; Glucose 105 mg/dL (65-110); Magnesium 2.1 mg/dL (1.6-2.3); Poikilocytosis 1+; Potassium 4.2 mmol/L (3.4-5.0); Sodium 138 mmol/L (137-145); Total Protein 6.5 g/dL (6.3-8.2)
[2025-03-16 05:47] LABS: Schistocytes Rare
--- NOTE | 2025-03-16 06:09 | PCRCNOTE ---
Sputum induction not administered this morning. Patient produced a sample around 2300 last night (03/15).
[2025-03-16] MEDS: CLOPIDOGREL BISULFATE 75 MG TABLET PO (09:28)
[2025-03-16] MEDS: ATORVASTATIN 40 MG TABLET 80 MG PO (09:29)
[2025-03-16] MEDS: DOCUSATE SODIUM 100 MG CAPSULE PO (09:29)
[2025-03-16] MEDS: FINASTERIDE 5 MG TABLET PO (09:29)
[2025-03-16] MEDS: FUROSEMIDE 40 MG TABLET PO (09:30)
[2025-03-16] MEDS: guaiFENesin 12 HR 600 MG TABCR 1200 MG PO ×2 (09:30→21:10)
[2025-03-16] MEDS: IPRATROPIUM 0.5 MG/ALBUTEROL SULFATE 2.5 MG AMPUL.NEB 3 ML INHALATION ×3 (09:47→20:17)
[2025-03-16] MEDS: ACETYLCYSTEINE 20% INHAL SOLN 800 MG/4 ML VIAL 200 MG INHALATION ×3 (09:48→20:18)
[2025-03-16] MEDS: UMECLIDINIUM/VILANTEROL 62.5-25 MCG ELLIPTA 1 PUFF INHALATION (09:49)
--- NOTE | 2025-03-16 12:25 | P.PNPL_ITS ---
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 He has been off of treatment for mycobacteria for least a month. He was not able to tolerate azithromycin, rifa butin or ethambutol due to serious side effects. He is followed at [facility] infectious disease clinic. This admission appears to be related to an exacerbation of his underlying M kansasii. (2) Hemoptysis: Code(s): R04.2 - Hemoptysis Status: Acute Assessment and Plan: Improved. He had modest hemoptysis the day prior to admission and the day of admission. The coughing with bright red blood was not massive, it was several tbsp and then became less and dark brown. This appeared to be due to his pulmonary condition and not due to decompensated heart failure. (3) Obstructive sleep apnea: Code(s): G47.33 - Obstructive sleep apnea (adult) (pediatric) Status: Chronic Assessment and Plan: He is compliant with CPAP and oxygen 4 L/min at night. (4) Mycobacterium kansasii infection: Code(s): A31.0 - Pulmonary mycobacterial infection Status: Acute Assessment and Plan: Has had mycobacterium kansasii documented since AFB sputum 08/28/2016. Has been managed by [facility] ID with no treatment for about a month due to not being able to tolerate side effects of azithromycin, rifabutin and ethambutol. Last ID note we have is Sep 18, 2024. He saw DAIRY TRUCK DRIVER Vicki Hahn in December 2024. I have no ID note since then, and he was on Rx with failure, saw ID 2 months ago. (5) Chronic respiratory failure with hypoxia, on home oxygen therapy: Code(s): J96.11 - Chronic respiratory failure with hypoxia; Z99.81 - Dependence on supplemental oxygen Status: Acute Assessment and Plan: He has been on oxygen around the clock for several years. He has mild hypercapnia, severe COPD with recurrent resistant Pseudomonas infections. Today is saturation is 98% on 4 L. At home usually uses 2 L during the day and 4 L at night. wean O2 to keep saturation 90-94% on O2 Plan plan: 1) wean O2; 98% on 4 L. At home he is on 2 L daytime, 4 L at night. Goal is saturation 90-94% on supplemental oxygen. 2) Sputum studies; he sent a specimen, results not back yet; Gram stain c&s, extended respiratory pathogen panel, Urine antigen for Legionella and S. pneumococcus. 3) I am stopping his IV antibiotics tomorrow, now on Levaquin IV and Meropenem 1 gram IV Q 12 hours for exacerbation of bronchiectasis with prior Pseudomonas aeruginosa. 4) Continue Cornet valve q.i.d for , airway clearance, bronchodilators, 3% NS. Mucomyst nebulized. 5) No ICS with FERNANDO; ICS makes FERNANDO worse. 6) I will contact his ID clinician for most recent note. We requested records, have not received anything. He recently failed FERNANDO treatment due to side effects for azithromycin 500 mg a day, Rifabutin 300 mg a day and ethambutol 1200 mg a day. Subjective Date/time seen: 03/16/25 12:25 Interval history: 03/14/2025; new consultation; Vik Hill is a 74-year-old man with shortness of breath and a cough with bloody sputum which is new. Hemoptysis started one day prior to admission on March 13. He is a patient in our practice, last office visit was 10/25/2024; he was admitted Sep 04 to Sep 11 with pneumonia, acute respi ratory failure. He is followed at [facility] ID clinic for mycobacterium kansasii, has not been able to tolerate regimen of meds, azithromycin 500 mg /day caused diarrhea; rifabutin 300 mg p.o. daily. Ethambutol 1200 mg 3 times a week; he had side effects and had to quit all. His last ID visit was November 2024, and he has taken no mycobacterial meds for over a month. He generally stays at home. This past week, he went to yazidism for the first time in 6 months. He is on IV Levaquin and oral prednisone. He has had increase eosinophils on prior CBC with diff, and has been on Dupixent. PMH: HTN, hyperlipemia; CAD, CKD stage 4, chronic respiratory failure on O2 at home, 2 L at rest, 4 L with exertion. Heart failure with preserved ejection fraction, pacemaker, HTN, bronchiectasis, Mycobacterium kansasii infection, multidrug resistant Pseudomonas aeruginosa, empyema status post (L) thoracotomy and decortication, peripheral vascular disease. He had a sternal fracture in May 2023 when he fell on his chest while holding something, and for this reason he could not tolerate vest therapy which was tried for airway clearance. 03/16/2025; He is sitting up in a chair, finishing lunch. He feels better, no hemoptysis. Less short of breath. Less coughing, less sputum. He is not as active as he is at home. He walks quite a bit during the day throughout his house, does laundry, cooks, cleans. He now is allowed to go to the bathroom here in the hospital without assistance. He plans to walk around more today. He sent a sputum to the last last night, no results yet. AFB specimens need to be sent on morning sputum. Morning sputa samples have the highest concentration of AFB. He is on IV Levaquin and Meropenem for management of suspected Pseudomonas lower respiratory tract infection. His wbc is a little higher today, 10.7, has been lower during the admission. This may be due to oral steroids. He sees Vicki Hahn NP at [facility] ID clinic. He has some concerns that he wanted to talk with Dr. Stover about. He has an appointment next month. Here is a list of concerns: Dementia testing CT or x-ray of his sternum Question about any of his medications causing balance problems. Here problems? , loss of focus. He has hearing loss, has not been tested. Drugs causing diarrhea than constipation Cyst on his neck Chest pains with shortness of breath worse near bedtime. When he is on his back, he put his arms under his head. He is better in an hour or 2. Always needs a nap after a meal, take pill with meals Hearing is rapidly worse, ? dirty ear canals? Any new vaccines? Best sequence of medical personnel use, PMC, ER, Urgent Care, Pharmacy? Wheelchairs, insurance? DATA * 03/13/2025, ABG pH 7.416/pCO2 57.2, PO2 79.1, HC03 35.9, saturation 94.5% on oxygen 4 L Older ABG September 04, 2024 pH 7.47 pCO2 49.3 PO2 74.2 HC03 35.2 saturation 94.7% on 2 L ABGs prior to Aug 2024 did not shows hypercapnia * 03/13/2025 chest CTA; No evidence for pulmonary embolism in the central pulmonary arteries. Evaluation of peripheral pulmonary arteries limited. 2: Severe emphysema with bronchiectasis and mucous plugging. 3: Left-sided pulmonary nodules measuring 10 mm or less. Cannot exclude primary bronchogenic carcinoma or metastatic disease versus infectious/inflammatory process. 4: Patchy left lower lobe consolidation which may represent atelectasis, aspiration related inflammation or pneumonia. 5: Mediastinal and hilar lymphadenopathy which can be reactive or related to prior granulomatous disease or chronic inflammation. Differential diagnosis includes metastatic disease, smoking-related lymph node hyperplasia lymphoma. History of prior visits below this point. 10/25/2024:? This is a follow-up encounter from 06/07/2024 for GOLD grade 3 group B COPD, bronchiectasis, mycobacterial kansasii lung infection, and ANDRZEJ. On 06/07/2024, regarding his GOLD grade 3 group B COPD, had 1 outpatient COPD exacerbation and completely recovered.? Continued on Wixela 500-51 puff b.i.d., Spiriva Respimat 5 mcg q.h.s., guaifenesin 400 p.o. b.i.d., Zyrtec 10 q.day and Dupixent for his psoriatic-eczema, he was not routinely using the vest or flutter valve.? As prescribed using no oxygen at rest, 2 L with activity and 4 L at night.? CAT score 25, he continued with an aerobic exercise activity bike riding, resistance band and calisthenics.? Received his flu vaccine and will get the COVID vaccine.? Received RSV last month.? Given his M kansasii infection, I discontinue the inhaled corticosteroids and prescribed Stiolto Respimat. On 06/07/2024, regarding his bronchiectasis, unchanged on his CT scan on 07/13/2024 compared to 01/13/2024.? I encouraged vest treatment once a day.? I recommended he talk to his PCP regarding Dupixent and concurrent pulmonary M kansasii.? He was referred to the [facility] and this was the only medicine that helps the skin. On 06/07/2024, regarding his sputum from 03/06/24 and 03/07/24 with mycobacterium kansasii he was referred to [facility] who was waiting for sensitivities prior to scheduling. On 06/07/2024, regarding his ANDRZEJ, he was intolerant to CPAP mask with an Briceville score of 8 and an overnight oximetry on 4 L with adequate oxygenation which he was continuing. 07/04/2024:? Drug sensitivities to patient's M kansasii available which were faxed to [facility].? Patient with an appointment on 09/18/2024. 07/22/2024:? CT scan of the chest with severe emphysema, worsening scattered nodules and small air pace opacities bilaterally compared to 01/13/2024.? Mild bronchiectasis with a lower lobe predominance.? 2.3 cm right kidney mass.? Of note, the patient had an ultrasound of the kidneys on 05/07/2024 which showed bilateral cysts with no solid mass or hydronephrosis. 09/04/2023 through 09/11/2023:? Patient admitted to [facility] with worsening SOB and treated for resistant Pseudomonas with meropenem and azithromycin.? Told me he was breathing better than he had in the last few months.? His phlegm was improving.? Room air saturations Patient improved and was 93%.? Pseudomonas in his sputum was sensitive to meropenem.? Four separate sputums were AFB smear negative.? Discharged on meropenem 1 g q.12 hours for total of 14 days, last dose 09/17/2024. 09/18/2024: [facility] infectious Disease Clinic note. Patient with a history of COPD, COVID 2019, recurrent pulmonary infections. Fall in 2022 with sternal fracture. Now O2 dependent in uses 2 L per nasal cannula at rest, 4 with activity. He has had a 34 lb weight loss since 0 04/25/2024. Productive cough. Tree-in-bud opacities for several years. AFB sputum 08/28/[address] scan 06/2024 showed increase in centrilobular nodules and bronchial wall thickening and areas of nodular consolidation compatible with worsening atypical mycobacterial infection along with severe emphysema. Admitted outside hospital earlier this month and is currently on IV meropenem for pneumonia he will finish the course this week. Assessment and plan. Patient with symptomatic and TM pulmonary disease. He meets criteria for treatment given his symptoms, radiologic findings of cavitary disease on imaging and reports of 2.6 by Adam positive for M kansasii. I have results for only 1 sputum with susceptibilities. His case is complicated by severe COPD with current pseudomonal pneumonia for which he is currently finishing up a course of meropenem. Discussed at length with patient the rationale for treatment, antibiotic course with potential adverse effects and length of therapy, and plans for close monitoring of disease and drug toxicity. He verbalized understanding and would like to start treatment today. Start NTM therapy as follows: Azithromycin 500 mg p.o. daily, rifabutin 300 mg p.o. daily. Ethambutol 1200 mg 3 times a week. Renally dosed based on creatinine clearance of 31 concern for toxicity. Will continue antibiotic therapy for minimum 12 months. AFB sputum every 1-2 months. Standing order sent [facility]. Sarojihara Test today. Visit with signal maintainer helper next month. Discussed importance of airway clearance. He has a flutter valve device at home. Working on getting a vest. He is not using hypertonic saline will defer to Pulmonary. In regards to his recurrent pseudomonal pulmonary infections I think he could c onsider a course of prolonged tobramycin his Pseudomonas is fluoroquinolone resistant. Will defer this decision to extension specialist. Labs today CBC, CMP, Medina C antibodies given frequent travel to [place], return in 3 months. 09/24/24: I spoke to the patient and he is not using a vest therapy because he fell in May of 2023 and broke his sternum and tried to take a vest therapy after that and it caused him sternal pain. For the most part the patient is able to clear his secretions with albuterol nebulizers, guaifenesin and a flutter valve. At times he feels his phlegm is thick. We discussed the risks and benefits of saline nebulizers and we will give therapeutic trial of saline 3% nebulized 3 times a day p.r.n.. Prescription sent. 09/24/2024:? PFTs demonstrated very severe obstructive abnormality and compared to 02/20/2024 the post bronchodilator FEV1 decreased from 1.12 L to 0.86 L (29% predicted), post bronchodilator ratio 33%, unable to perform plethysmography.? DLCO compared to 02/20/2024 decreased from 9.0 to 7.3 (29% predicted).? Patient with worsening lung function will continue new treatment for M kansasii pulmonary disease. Today tells me that He has had no further hospitalizations since 09/11/2023. Since starting his and TM therapy on 09/18/2024 the patient states that he is feeling a little bit better. He says his breathing is better. He is producing less phlegm. The phlegm remains yellow and green with no hemoptysis. Is oxygenation is stable and he is using no oxygen at rest with saturations 92-93%. With activity on room air saturations are 85 and they quickly recover with 2 L. At night he is wearing 4 L.Patient has dyspnea on exertion walking room to room and today is in wheelchair. The patient denies fever, chills, rigors. One time a month he has a night sweat where he wakes up with a damn sure. Overall he says he has been losing weight over the last year and he thinks he is losing muscle mass because he is deconditioned.His weight today is 169 representing a 13 lb weight loss since 06/07/2024. The patient continues to take Stiolto Respimat 2.5 mcg at 2 puffs q.a.m., guaifenesin 800 mg p.o. q.12 hours, rescue albuterol nebulizer 1 time in the morning. Rescue albuterol inhaler 3 to 4 times a week. Cornet flutter valve 1 time a day. The patient tried normal saline nebulization for 3 days and this irritated him and made it is breathing were so he stopped. The patient fractured his sternum in 10 and still has sternal pain with incomplete healing on his last CT scan from 07/18/2024 so he has not been using the vest. His CAT score today is 23. Patient is taking azithromycin 500 mg p.o. q.day, rifabutin 300 mg p.o. q.day and ethambutol 1200 mg p.o. q.day. he will follow up with [facility] ID on 12/18/2024. Patient did submit a sputum to [facility] last week. At last visit they did talk about the patient's Dupixent and the ID team felt that this was not contraindicated with his current condition. Patient is using 4 L nasal cannula at night says that he sleeps well an does have dreaming episodes. He does nap frequently during the day and his Briceville score is 15. patient is up-to-date on his influenza vaccine, COVID booster and RSV vaccine. Vik Hill is a 73-year-old man known to our practice, last office visit with Dr Landeros was June 07, 2024. His pulmonary history includes a Left thoracotomy May 2021 for empyema with Strep intermedius; chronic respiratory failure on home oxygen 2 L at rest and 4 L with exertion, COPD, bronchiectasis with prior infections including Pseudomonas aeruginosa and mycobacteria kansasii colonization versus infection, waiting on his initial ID visit at [facility] ID clinic Sep 18. In January 2023, he had a similar admission with resistant Pseudomonas infection, went home with a PICC line to complete meropenem for 10 days. He is on Dupixent for eczema and psoriasis. He uses Wixela and tiotropium-olodaterol for COPD. He has been having a slow downward trajectory since June, getting more short of breath, having more sputum which is yellow-to green, with limitation of his exertion, now only able to walk across his house. At baseline, he coughs about 10 to 20 tissues per day with sputum the size of a quarter. In the last several weeks this is increased to 50 tissues per day, each one having a quarter size of sputum. He contacted our office August 28 with worsening symptoms for the 10 days prior, increased sputum and saturation 88% on 2 liters/minute. He was started on azithromycin and steroids with significant improvement but as soon as he quit taking this, his symptoms rebounded. He called the office on September 03, worse, and came to ER. His initial wbc was 7.9, now 10.8 on Sep 07. His sputum 09/04/24 = many WBC, no epithelial cells, moderate GN bacilli, normal oropharyngeal santaigo present, light growth of Pseudomonas aeruginosa susceptibility test is pending. He tested negative for influenza, RSV, and COVID. Chest x-ray showed bibasilar atelectasis versus pneumonia, more on the left. The patient says that yesterday he was taken off of Lasix and his breathing was better, and today was put on it again in his breathing is worse. He used using a Cornet valve which definitely helps to expectorate sputum. DATA * 09/04/24; CXR = The cardiac silhouette is not enlarged. Left bipolar pacemaker. LUNGS: No effusions or pneumothorax. Minimal opacification the lung bases more on the left side. Underlying fibrotic changes. OTHER: No free air under the diaphragm. Degenerative changes of the spine. IMPRESSION: Bibasilar atelectasis versus pneumonia more on the left side. document embedded image * 03/06/24 and 03/07/24 sputa at [facility] grew mycobacterium kansasii is sensitive to rifabutin, rifampin amikacin, clarithromycin, linezolid, moxifloxacin. It is resistant to Septra, ciprofloxacin, doxycycline, and minocycline. Streptomycin is greater than 32 an clobazam mean is less than 0.015. 06/07/2024: This is a follow-up encounter from 02/02/2024 for GOLD grade 3 group B COPD, bronchiectasis, ANDRZEJ and mycobacterium kansasii infection. On 02/02/2024, regarding his GOLD grade 3 group B COPD. The patient was improving. MONTEZ was 1/8 of a block and this was worse after a fall with a fractured sternum. On Wixela 500-50 at 1 puff b.i.d. and Spiriva Respimat 5 mcg q.h.s., Zyrtec 10 and rescue albuterol inhaler nebulizers which she was using 0 to 3 times a day. He was using guaifenesin 400 b.i.d. and vest therapy 2 times a day. He was using his oxygen as prescribed: None at rest, 2 L with activity and he was wearing 2 L at night. I ordered PFTs, overnight oximetry on 2 L and recommended he use flutter valve if sputum is difficult to expectorate. I encouraged him to continue with pulmonary rehabilitation as he only had 1 session on 01/17/2024 where he exercised for 5 minutes on 2 L nasal cannula. On 02/02/2024, regarding his lower lobe bronchiectasis with nodular infiltrates, his previous workup in 2020 was unrevealing. I repeated immunoglobulins, CBC, A spergillus IgE, HIV, rheumatoid factor, TOMAS panel, QuantiFERON GOLD, sputum for AFB x3. His baseline expectorations were 10 a day. On 02/02/2024, regarding his ANDRZEJ, he tells me he was tested 10 years ago but could not tolerate a CPAP mask. He has been on 2 L since. I ordered an overnight oximetry on 2 L. 02/08/2024: Overnight oximetry with 2 L nasal cannula with hypoxemia. Will repeat test on 4 L. 02/15/2024: Overnight oximetry on 4 L with adequate oxygenation. 02/17/2024: Immunoglobulins normal, Aspergillus IgE negative, TOMAS cascade positive for COURTESY VAN DRIVER antibody at 2.7 with normal being less than 1. Patient had no clinical history of hand arthritis or swollen joints or myositis. 02/20/2024: PFTs demonstrated a severe obstructive abnormality with FEV1 1.12 L, 38% predicted, no bronchodilator response. Hyperinflation. DLCO severely decreased to remain mildly decreased when adjusted for alveolar volume. In comparison to previous pulmonary function test on 09/29/2021 there has been a significant decrease in the FEV1 with no other changes. 03/07/2024 QuantiFERON GOLD negative. 03/07/2024: Sputum with 3+ AFB. Id and sensitivities requested. 03/20/2024: Sputum from 03/07 with AFB growth. Id pending. Sensitivities requested. 03/29/2024: Sputum from 03/07 with mycobacterium kansasii 03/30/2024: Session 13 pulmonary rehab. Exercise time 13 minutes on 3 and 4 L nasal cannula oxygen 04/20/24: Sputum from 03/06 with mycobacterium kansasii. I called the patient and discussed his second positive mycobacterium kansasii sputum, now from 03/06/2024 and 03/07/2024. He states that his breathing does limit him and limits his ADLs. He has stable MONTEZ where he can walk about 20 minutes on oxygen and this is been stable for the last 5 years. He denies fever, change in his cough or phlegm production. Given his worsening FEV1, increase oxygen requirements at night, worsening CT scan, he is in agreement to be referred to [facility]. Referral placed and they are awaiting sensitivities prior to being scheduled. 04/20/2024: 6 minute walk on 2 L nasal cannula. Patient ambulated 213 m (improved from 122 m on 01/23/24). Raul saturation 91%. Today he tells me that He has had no hospitalizations since 02/02/2024. Two and half weeks ago he cut the grass and 1 day after that he noticed shortness of breath and was treated by his PCP with prednisone for 5 days and completely recovered. Currently the patient states he has more phlegm production over the last 4 months. His activity level size remains stable. He completed 13 sessions of pulmonary rehab and then decided to do exercise at home. Two to 3 times a week he works out for an hour. He rides a bike for 20 minutes with a heart rate that goes from 75-80 up to 110-120. After that he does 20 minutes of resistance bands. And after that he does 20 minutes of callus statics. Overall he has noticed no worsening shortness of breath with these activities. The patient denies fever. The patient has some chills. The patient has night sweats less than 1 time a month. The patient has gained weight and gained 1 lb over the last 4 months. The patient continues on Wixela 500-50 at 1 puff b.i.d., Spiriva Respimat 2.5 at 2 puffs q.h.s., guaifenesin 400 mg p.o. b.i.d., Zyrtec 10 mg a day and Dupixent for his psoriasis-eczema. The patient uses rescue albuterol approximately 2 times a month. The patient is not routinely using the vest or flutter valve. The patient is using no oxygen at rest and his home pulse oximetry readings are 91%. He is wearing 2 L with activity and his home pulse oximetry numbers are 88-92%. The patient continues to use 4 L at night as prescribed. The patient's CAT score today is 25. The patient has received the influenza vaccine this fall. The patient will get his COVID vaccine later this month. The patient received the RSV vaccine last year. prior visits 02/02/2024: This is a follow-up encounter from 11/21/2023 for COPD On 11/21/2023, regarding his COPD, he had cough with phlegm production. His MONTEZ was worse and he could only take a trash out to the street and come back. Using rescue nebulizer of albuterol 1-3 times a week. He was on Wixela 500-50 q.12 hours. He takes Dupixent for his eczema and psoriasis. He was treated for COPD exacerbation with a prednisone taper. Using 2 L with exertion and none at rest. Sputum for bacteria, AFB and fungal was ordered for his chronic lower lobe infiltrates. Plan for 6 minute walk and PFTs when he was improved. Briseida tran in the future. On 11/21/2023, he had multiple pulmonary nodules on his CT scan of the chest 06/30/2023 left greater than right and CT abdomen on 10/15/23 with recommendation to repeat in 3 months on 01/13/2024. 11/22/2023: Sputum demonstrated few epithelial cells, moderate mixed bacterial and growth of normal santiago. 12/29/2023: PCP office visit note states he continues to have difficulty with mobility due to SOB and increased oxygen demand. Despite finishing his oral steroid taper he continued to struggle with MONTEZ. He has fatigue during the day and has leg cramps at night. His attempts to increase his activity or limited by his breathing and peripheral arterial disease in his left leg. 2 L nasal cannula saturation 96%. Lungs were clear to auscultation he was referred to Pulmonary Rehabilitation. 01/13/2024: CT scan of the chest demonstrated severe centrilobular emphysema all lung colvin, bronchiectasis in the bases with mucus plugging, worsening chronic lung disease consistent with chronic infection. 01/23/2024: 6 minute walk on 2 L nasal cannula with baseline saturation 97% and raul saturation 90% with 122 m ambulated. 01/24/2024: Session to of pulmonary rehabilitation. Total exercise time 20 minutes. 01/27/2024: cardiac catheterization at [facility] severe single-vessel coronary artery disease with chronic total occlusion proximal RCA with [id number] collaterals. No significant obstructive disease in the left coronary system. LVEDP 10. Systemic hypertension. Plan continuation of optimal medical treatment including antiplatelet treatment, antianginals, statin. Need for intervention on chronic total occlusion of RCA to be determined based on clinical course. Today he tells me thatafter he received his prednisone at last visit he was breathing much better. The patient has had no hospitalizations or exacerbations since November 21, 2023. Overall the patient states that he is doing better. He is now walking 1/8 of a block and he is getting stronger and able to do more chores around the house. He is able to do his grooming, he can go to the grocery store. Before his fall with sternal fracture he was able to walk 1 block. He does use a cane and has balance issues. He has 1 session of cardiac pulmonary rehab and will continue this in the future. The patient makes 10 phlegm expectorations a day and this is unchanged for him. He denies fever, chills, rigors. Currently the patient is taking Wixela 500-50 at 1 puff b.i.d., Spiriva Respimat 2.5 at 2 puffs q.h.s., albuterol rescue nebs 0 to 3 times a day usually 0 times a day. Albuterol inhaler rescue 1 time in 2 months. Zyrtec 10 mg p.o. q.day, guaifenesin 400 mg p.o. b.i.d., vest therapy 2 times a day. Currently the patient is wearing no oxygen at rest with measured saturations 90-94% at home. With activity wears 2 L. He is wearing 2 L at night. The patient is not smoking or exposed to secondhand smoke. The patient's sinuses are currently controlled. The patient has untreated ANDRZEJ his cannot tolerate the CPAP. He says he sleeps much better with the 2 L nasal cannula on. CAT score today is 24. the patient states he received his flu vaccine, COVID booster and RSV in the fall of 2022. He has received a pneumonia shot. Review of Systems Review of Systems: He tells me his legs are less swollen; his ankles look good today. All systems reviewed & are unremarkable except as noted in HPI and below Exam Narrative: GEN: Alert, oriented, not in distress. He is sitting up in a chair, nasal cannula O2 4 L/min sat 98%. O2 can be weaned. NECK: Trachea is midline CHEST: Equal air entry, symmetric excursion, lungs do not have any additional sounds, no rhonchi, crackles or wheezes. This is an improvement. Left thoracotomy scar. CV: Distant regular heart tones without m/g/r ABD : (+) bowel sounds Extremities : no clubbing, cyanosis, and no edema PSYCH: normal thought and speech. Objective Data Vital Signs Vital Signs: Vital Signs - 24 hr 03/15/25 13:09 03/15/25 14:16 03/15/25 15:23 Temperature Pulse Rate 78 Respiratory Rate 18 Blood Pressure Pulse Oximetry Oxygen Delivery Nasal Cannula Nasal Cannula Oxygen Flow Rate 4 4 03/15/25 15:35 03/15/25 16:00 03/15/25 20:00 Temperature 36.2 C L Pulse Rate 82 73 93 Respiratory Rate 18 18 Blood Pressure 141/67 H 145/70 H Pulse Oximetry 98 98 Oxygen Delivery Oxygen Flow Rate 03/15/25 20:51 03/15/25 21:38 03/15/25 21:46 Temperature Pulse Rate 93 76 76 Respiratory Rate 18 Blood Pressure Pulse Oximetry 97 Oxygen Delivery Nasal Cannula Oxygen Flow Rate 4 03/15/25 21:52 03/16/25 00:00 03/16/25 04:00 Temperature 36.8 C 36.6 C Pulse Rate 79 67 78 Respiratory Rate 18 18 18 Blood Pressure 138/58 L 139/78 Pulse Oximetry 96 98 Oxygen Delivery Oxygen Flow Rate 03/16/25 08:00 03/16/25 09:30 03/16/25 09:30 Temperature 36.4 C L Pulse Rate 73 69 69 Respiratory Rate 18 16 Blood Pressure 158/73 H 147/66 H Pulse Oximetry 96 91 Oxygen Delivery Oxygen Flow Rate 03/16/25 09:30 03/16/25 09:52 Temperature Pulse Rate 69 80 Respiratory Rate 18 20 Blood Pressure Pulse Oximetry 91 Oxygen Delivery Nasal Cannula Oxygen Flow Rate 4 Intake/Output Intake/Output: Intake & Output 03/13/25 03/14/25 03/15/25 03/16/25 23:59 23:59 23:59 23:59 Intake Total 2180 2320 1870 820 Output Total 150 1350 1100 700 Balance 2030 970 770 120 Meds/Results Medications: Active Medications Generic Name Dose Route Start Last Admin Trade Name Freq PRN Reason Stop Dose Admin Acetaminophen 650 mg 03/13/25 10:51 03/15/25 20:54 Acetaminophen 325 Mg Tablet PO 650 mg Q4H PRN Administration Mild Pain (1-3) or Fever Acetylcysteine 200 mg 03/16/25 08:00 03/16/25 09:48 Acetylcysteine 20% Inhal Soln 800 Mg/4 Ml Vial INHALATION 200 mg TID@0800,1400,2000 JUSTIN Administration Albuterol 2.5 mg 03/14/25 22:51 03/14/25 23:20 Albuterol Sulfate Neb 2.5 Mg/3 Ml Inh INHALATION 2.5 mg Q6HRT PRN Administration Shortness Of Breath Albuterol/Ipratropium 3 ml 03/15/25 08:00 03/16/25 09:47 Ipratropium 0.5 Mg/Albuterol Sulfate 2.5 Mg Ampul.Neb 3 Ml INHALATION 3 ml 0800,1400,2000 JUSTIN Administration Amlodipine Besylate 10 mg 03/13/25 21:00 03/15/25 20:51 Amlodipine Besylate 10 Mg Tablet PO 10 mg HS JUSTIN Administration Atorvastatin Calcium 80 mg 03/14/25 09:00 03/16/25 09:29 Atorvastatin 40 Mg Tablet PO 80 mg DAILY JUSTIN Administration Carvedilol 25 mg 03/13/25 21:00 03/16/25 09:30 Carvedilol 25 Mg Tablet BY MOUTH 25 mg Q12HR JUSTIN Administration Clopidogrel Bisulfate 75 mg 03/14/25 09:00 03/16/25 09:28 Clopidogrel Bisulfate 75 Mg Tablet PO 75 mg DAILY JUSTIN Administration Docusate Sodium 100 mg 03/14/25 09:00 03/16/25 09:29 Docusate Sodium 100 Mg Capsule PO 100 mg DAILY JUSTIN Administration Finasteride 5 mg 03/14/25 09:00 03/16/25 09:29 Finasteride 5 Mg Tablet PO 5 mg DAILY JUSTIN Administration Furosemide 40 mg 03/14/25 09:00 03/16/25 09:30 Furosemide 40 Mg Tablet PO 40 mg QAM JUSTIN Administration Gabapentin 300 mg 03/13/25 13:02 03/15/25 20:54 Gabapentin 300 Mg Capsule PO 300 mg DAILY PRN Administration neuropathy Guaifenesin 1,200 mg 03/13/25 21:00 03/16/25 09:30 Guaifenesin 12 Hr 600 Mg Tabcr PO 1,200 mg Q12HR JUSTIN Administration Levofloxacin/Dextrose 750 mg in 150 mls @ 100 mls/hr 03/13/25 11:15 03/15/25 11:48 Levaquin 750 Mg/D5w 150 Ml IVPB Infused Q48H JUSTIN Infusion Meropenem 1,000 mg/ Sodium 100 mls @ 200 mls/hr 03/14/25 23:00 03/15/25 23:26 Chloride IVPB 200 mls/hr Q12H JUSTIN Administration Loratadine 10 mg 03/13/25 13:11 Loratadine 10 Mg Tablet PO HS PRN allergy symptoms Prednisone 40 mg 03/14/25 08:00 03/16/25 09:28 Prednisone 20 Mg Tablet PO 40 mg DAILY@0800 [facility] Administration Sodium Chloride 6 ml 03/15/25 05:00 03/16/25 06:09 Sodium Chlor 3% 15 Ml Neb (Respiratory Therapy) INHALATION Not Given DAILY@0500 [facility] Tamsulosin HCl 0.8 mg 03/13/25 21:00 03/15/25 20:51 Tamsulosin Hcl 0.4 Mg Capsule PO 0.8 mg HS JUSTIN Administration Tramadol HCl 50 mg 03/13/25 13:02 Tramadol Hcl (*Crx) 50 Mg Tablet PO Q6H PRN pain 4-6 Umeclidinium/Vilanterol 1 puff 03/14/25 08:00 03/16/25 09:49 Umeclidinium/Vilanterol 62.5-25 Mcg Ellipta INHALATION 1 puff DAILYRT JUSTIN Administration Radiology Results: ITS Impressions Chest X-Ray 03/13/25 08:56 Impression: 1: Stable chronic interstitial lung disease with chronic left pleural thickening/effusion. No significant interval change. Chest CTA 03/13/25 09:16 IMPRESSION: 1. No evidence for pulmonary embolism in the central pulmonary arteries. Evaluation of peripheral pulmonary arteries limited. 2: Severe emphysema with bronchiectasis and mucous plugging. 3: Left-sided pulmonary nodules measuring 10 mm or less. Cannot exclude primary bronchogenic carcinoma or metastatic disease versus infectious/inflammatory process. 4: Patchy left lower lobe consolidation which may represent atelectasis, aspiration related inflammation or pneumonia. 5: Mediastinal and hilar lymphadenopathy which can be reactive or related to prior granulomatous disease or chronic inflammation. Differential diagnosis includes metastatic disease, smoking-related lymph node hyperplasia lymphoma. Labs Labs: Laboratory Results - last 24 hr 03/15/25 03/15/25 03/16/25 22:24 22:26 05:00 WBC 10.7 H RBC 3.75 L Hgb 9.4 L Hct 32.3 L MCV 86.1 MCH 25.1 L MCHC 29.1 L RDW 15.7 H Plt Count 166 MPV 9.4 Immature Gran % (Auto) 0.5 Neut % (Auto) 87.8 H Lymph % (Auto) 4.7 L [place] % (Auto) 7.0 Eos % (Auto) 0.0 Baso % (Auto) 0.0 L Lymph # (Auto) 0.50 L [place] # (Auto) 0.8 H Eos # (Auto) 0.0 Baso # (Auto) 0.0 Abs Immat Gran (auto) 0.05 H Absolute Neuts (auto) 9.4 H Absolute Nucleated RBC 0.000 Band Neutrophils % Not Reportable Nucleated RBC % 0.0 Platelet Estimate Adequate Poikilocytosis 1+ Schistocytes Rare Sodium 138 Potassium 4.2 Chloride 101 Carbon Dioxide 30 Anion Gap 7 BUN 44 H Creatinine 1.61 H Estim Creat Clear Calc 36 Estimated GFR 42 L Glucose 105 Calcium 8.4 Magnesium 2.1 Total Bilirubin 0.3 AST 27 ALT 16 Alkaline Phosphatase 86 Total Protein 6.5 Albumin 3.5 Chlamy pneumoniae PCR Cancelled Adenovirus (PCR) Cancelled B. pertussis DNA (PCR) Cancelled B.parapertussis DNA PCR Cancelled Coronavirus OC43 (PCR) Cancelled Coronavirus HKU1 (PCR) Cancelled Coronavirus 229E (PCR) Cancelled Coronavirus NL63 (PCR) Cancelled Human Metapneumovir PCR Cancelled Influenza A (RT-PCR) Negative Influenza A (H1) PCR Cancelled Influ A (H1/09) PCR Cancelled Influenza A (H3) PCR Cancelled Influenza Type A (PCR) Cancelled Influenza B (RT-PCR) Negative Influenza Type B (PCR) Cancelled M. pneumoniae (PCR) Cancelled Parainfluenza 1 (PCR) Cancelled Parainfluenza 2 (PCR) Cancelled Parainfluenza 3 (PCR) Cancelled Parainfluenza 4 (PCR) Cancelled RSV (RT-PCR) Negative RSV (PCR) Cancelled Entero/Rhino (PCR) Cancelled SARS-CoV-2 (PCR) Cancelled SARS-CoV-2 RNA (RT-PCR) Negative
[2025-03-16] MEDS: MEROPENEM 1 GM in SODIUM CHLORIDE 0.9% IV 100 ML 200 ML IVPB (12:59)
--- NOTE | 2025-03-16 13:16 | P.PNIM_ITS ---
Progress Note: A&P Assessment and Plan (1) Hemoptysis: Code(s): R04.2 - Hemoptysis Status: Acute Assessment and Plan: Pulmonology consulted recommendations pending Hold anticoagulation (2) COPD exacerbation: Code(s): J44.1 - Chronic obstructive pulmonary disease with (acute) exacerbation Status: Acute Assessment and Plan: IV Levaquin and Meropenem DuoNeb Guaifenesin Steroids (3) Pneumonia: Code(s): J18.9 - Pneumonia, unspecified organism Status: Acute Assessment and Plan: IV Levaquin and Meropenem monitor cultures (4) Multiple pulmonary nodules determined by computed tomography of lung: Code(s): R91.8 - Other nonspecific abnormal finding of lung field Status: Acute Assessment and Plan: Left-sided pulmonary nodules measuring 10 mm or less. Cannot exclude primary bronchogenic carcinoma or metastatic disease versus infectious/inflammatory process. awaiting pulm eval (5) Heart failure with preserved ejection fraction: Code(s): I50.30 - Unspecified diastolic (congestive) heart failure Status: Acute Assessment and Plan: Restart home Lasix no need for IV Lasix patient is euvolemic (6) Coronary artery disease: Qualifiers: Coronary Disease-Associated Artery/Lesion type: unspecified vessel or lesion type [place]eller vs. transplanted heart: [place] heart Associated angina: without angina Qualified Code(s): I25.10 - Atherosclerotic heart disease of [place] coronary artery without angina pectoris Code(s): I25.10 - Atherosclerotic heart disease of [place] coronary artery without angina pectoris Status: Acute Assessment and Plan: Restart Lipitor, Coreg, Plavix, (7) Chronic kidney disease, stage IV (severe): Code(s): N18.4 - Chronic kidney disease, stage 4 (severe) Status: Chronic Assessment and Plan: Avoid nephrotoxic medications (8) BPH (benign prostatic hyperplasia): Qualifiers: Lower urinary tract symptom presence: unspecified whether lower urinary tract symptoms present Qualified Code(s): N40.0 - Benign prostatic hyperplasia without lower urinary tract symptoms Code(s): N40.0 - Benign prostatic hyperplasia without lower urinary tract symptoms Status: Acute Assessment and Plan: Continue Proscar and Flomax Plan Bronchiectasis exacerbation and pneumonia Continue Levaquin and Meropenem Monitor cultures CT chest reviewed MAC Restarted on Azithromycin, EThambutol and Rifabutin by pulmonology Pulmonology following monitor DVT prophylaxis SCDs, no AC due to hemoptysis will complete meropenem and discharge Subjective Date/time seen: 03/16/25 13:16 Interval history: Comfortable at bedside and noted hemoptysis has resolved Review of Systems Review of Systems: 12 systems were reviewed and are negativ e except for as per HPI. Exam Narrative: General: well appearing, appears stated age. HEENT: normocephalic, atraumatic. Mucous membranes moist. EOMI, PERRLA, bilateral sclera anicteric, no conjunctival injection. Neck supple without JVD, lymphadenopathy, or bruit. Respiratory: clear to ascultation bilaterally. No rales/rhonic/wheezes. Cardiovascular: Regular rate and rhythm, normal S1-S2 upon ascultation. No murmurs, rubs, or clicks. PMI is nondisplaced, capillary refill less than 3 second. Abdomen: Soft, round, no pulsatile masses, nondistended and nontender. No rebound, no guarding. No CVA tenderness, no hepatosplenomegaly. Bowel sounds present to all four quadrants. No high pitch or tinkling sounds, resonant to percussion. Extremities: No cyanosis, clubbing, Pulses are palpable 2/2. Active ROM to all four extremities. 1+ pedal edema Neuro: Alert and orientated x 4. PERRLA. Cranial nerves 2-12 intact without focal deficit. Skin: Warm, dry, and intact, without rash, erythema, or lesion. Psych: pleasant, cooperative, normal speech, normal affect, no hallucinations, no dysarthia Objective Data Vital Signs Vital Signs: Vital Signs - 24 hr 03/15/25 14:16 03/15/25 15:23 03/15/25 15:35 Temperature Pulse Rate 78 82 Respiratory Rate 18 18 Blood Pressure Pulse Oximetry Oxygen Delivery Nasal Cannula Oxygen Flow Rate 4 03/15/25 16:00 03/15/25 20:00 03/15/25 20:51 Temperature 97.1 F L Pulse Rate 73 93 93 Respiratory Rate 18 Blood Pressure 141/67 H 145/70 H Pulse Oximetry 98 98 Oxygen Delivery Oxygen Flow Rate 03/15/25 21:38 03/15/25 21:46 03/15/25 21:52 Temperature Pulse Rate 76 76 79 Respiratory Rate 18 18 Blood Pressure Pulse Oximetry 97 Oxygen Delivery Nasal Cannula Oxygen Flow Rate 4 03/16/25 00:00 03/16/25 04:00 03/16/25 08:00 Temperature 98.3 F 97.9 F Pulse Rate 67 78 73 Respiratory Rate 18 18 18 Blood Pressure 138/58 L 139/78 158/73 H Pulse Oximetry 96 98 96 Oxygen Delivery Oxygen Flow Rate 03/16/25 09:30 03/16/25 09:30 03/16/25 09:30 Temperature 97.5 F L Pulse Rate 69 69 69 Respiratory Rate 16 18 Blood Pressure 147/66 H Pulse Oximetry 91 91 Oxygen Delivery Nasal Cannula Oxygen Flow Rate 4 03/16/25 09:52 03/16/25 12:00 Temperature Pulse Rate 80 74 Respiratory Rate 20 Blood Pressure 132/63 Pulse Oximetry 98 Oxygen Delivery Oxygen Flow Rate Intake/Output Intake/Output: Intake & Output 03/13/25 03/14/25 03/15/25 03/16/25 23:59 23:59 23:59 23:59 Intake Total 2180 2320 1870 1060 Output Total 150 1350 1100 700 Balance 2030 970 770 360 Meds/Results Medications: Active Medications Generic Name Dose Route Start Last Admin Trade Name Freq PRN Reason Stop Dose Admin Acetaminophen 650 mg 03/13/25 10:51 03/15/25 20:54 Acetaminophen 325 Mg Tablet PO 650 mg Q4H PRN Administration Mild Pain (1-3) or Fever Acetylcysteine 200 mg 03/16/25 08:00 03/16/25 09:48 Acetylcysteine 20% Inhal Soln 800 Mg/4 Ml Vial INHALATION 200 mg TID@0800,1400,2000 JUSTIN Administration Albuterol 2.5 mg 03/14/25 22:51 03/14/25 23:20 Albuterol Sulfate Neb 2.5 Mg/3 Ml Inh INHALATION 2.5 mg Q6HRT PRN Administration Shortness Of Breath Albuterol/Ipratropium 3 ml 03/15/25 08:00 03/16/25 09:47 Ipratropium 0.5 Mg/Albuterol Sulfate 2.5 Mg Ampul.Neb 3 Ml INHALATION 3 ml 0800,1400,2000 JUSTIN Administration Amlodipine Besylate 10 mg 03/13/25 21:00 03/15/25 20:51 Amlodipine Besylate 10 Mg Tablet PO 10 mg HS JUSTIN Administration Atorvastatin Calcium 80 mg 03/14/25 09:00 03/16/25 09:29 Atorvastatin 40 Mg Tablet PO 80 mg DAILY [facility] Administration Carvedilol 25 mg 03/13/25 21:00 03/16/25 09:30 Carvedilol 25 Mg Tablet BY MOUTH 25 mg Q12HR JUSTIN Administration Clopidogrel Bisulfate 75 mg 03/14/25 09:00 03/16/25 09:28 Clopidogrel Bisulfate 75 Mg Tablet PO 75 mg DAILY JUSTIN Administration Docusate Sodium 100 mg 03/14/25 09:00 03/16/25 09:29 Docusate Sodium 100 Mg Capsule PO 100 mg DAILY JUSTIN Administration Finasteride 5 mg 03/14/25 09:00 03/16/25 09:29 Finasteride 5 Mg Tablet PO 5 mg DAILY JUSTIN Administration Furosemide 40 mg 03/14/25 09:00 03/16/25 09:30 Furosemide 40 Mg Tablet PO 40 mg QAM JUSTIN Administration Gabapentin 300 mg 03/13/25 13:02 03/15/25 20:54 Gabapentin 300 Mg Capsule PO 300 mg DAILY PRN Administration neuropathy Guaifenesin 1,200 mg 03/13/25 21:00 03/16/25 09:30 Guaifenesin 12 Hr 600 Mg Tabcr PO 1,200 mg Q12HR JUSTIN Administration Levofloxacin/Dextrose 750 mg in 150 mls @ 100 mls/hr 03/13/25 11:15 03/15/25 11:48 Levaquin 750 Mg/D5w 150 Ml IVPB Infused Q48H JUSTIN Infusion Meropenem 1 gm/ Sodium 100 mls @ 200 mls/hr 03/16/25 13:00 03/16/25 12:59 Chloride IVPB 200 mls/hr Q12H JUSTIN Administration Loratadine 10 mg 03/13/25 13:11 Loratadine 10 Mg Tablet PO HS PRN allergy symptoms Polyethylene Glycol 17 gm 03/16/25 13:12 Polyethylene Glycol 3350 17 Gm Powd.Pack PO QAM PRN Constipation Prednisone 40 mg 03/14/25 08:00 03/16/25 09:28 Prednisone 20 Mg Tablet PO 40 mg DAILY@0800 REPLACED BY [facility] Administration Sodium Chloride 6 ml 03/15/25 05:00 03/16/25 06:09 Sodium Chlor 3% 15 Ml Neb (Respiratory Therapy) INHALATION Not Given DAILY@0500 REPLACED BY [facility] Tamsulosin HCl 0.8 mg 03/13/25 21:00 03/15/25 20:51 Tamsulosin Hcl 0.4 Mg Capsule PO 0.8 mg HS JUSTIN Administration Tramadol HCl 50 mg 03/13/25 13:02 Tramadol Hcl (*Crx) 50 Mg Tablet PO Q6H PRN pain 4-6 Umeclidinium/Vilanterol 1 puff 03/14/25 08:00 03/16/25 09:49 Umeclidinium/Vilanterol 62.5-25 Mcg Ellipta INHALATION 1 puff DAILYRT JUSTIN Administration Radiology Results: ITS Impressions Chest X-Ray 03/13/25 08:56 Impression: 1: Stable chronic interstitial lung disease with chronic left pleural thickening/effusion. No significant interval change. Chest CTA 03/13/25 09:16 IMPRESSION: 1. No evidence for pulmonary embolism in the central pulmonary arteries. Evaluation of peripheral pulmonary arteries limited. 2: Severe emphysema with bronchiectasis and mucous plugging. 3: Left-sided pulmonary nodules measuring 10 mm or less. Cannot exclude primary bronchogenic carcinoma or metastatic disease versus infectious/inflammatory process. 4: Patchy left lower lobe consolidation which may represent atelectasis, aspiration related inflammation or pneumonia. 5: Mediastinal and hilar lymphadenopathy which can be reactive or related to prior granulomatous disease or chronic inflammation. Differential diagnosis includes metastatic disease, smoking-related lymph node hyperplasia lymphoma. Labs Labs: Laboratory Results - last 24 hr 03/15/25 03/15/25 03/16/25 22:24 22:26 05:00 WBC 10.7 H RBC 3.75 L Hgb 9.4 L Hct 32.3 L MCV 86.1 MCH 25.1 L MCHC 29.1 L RDW 15.7 H Plt Count 166 MPV 9.4 Immature Gran % (Auto) 0.5 Neut % (Auto) 87.8 H Lymph % (Auto) 4.7 L [place] % (Auto) 7.0 Eos % (Auto) 0.0 Baso % (Auto) 0.0 L Lymph # (Auto) 0.50 L [place] # (Auto) 0.8 H Eos # (Auto) 0.0 Baso # (Auto) 0.0 Abs Immat Gran (auto) 0.05 H Absolute Neuts (auto) 9.4 H Absolute Nucleated RBC 0.000 Band Neutrophils % Not Reportable Nucleated RBC % 0.0 Platelet Estimate Adequate Poikilocytosis 1+ Schistocytes Rare Sodium 138 Potassium 4.2 Chloride 101 Carbon Dioxide 30 Anion Gap 7 BUN 44 H Creatinine 1.61 H Estim Creat Clear Calc 36 Estimated GFR 42 L Glucose 105 Calcium 8.4 Magnesium 2.1 Total Bilirubin 0.3 AST 27 ALT 16 Alkaline Phosphatase 86 Total Protein 6.5 Albumin 3.5 Chlamy pneumoniae PCR Cancelled Adenovirus (PCR) Cancelled B. pertussis DNA (PCR) Cancelled B.parapertussis DNA PCR Cancelled Coronavirus OC43 (PCR) Cancelled Coronavirus HKU1 (PCR) Cancelled Coronavirus 229E (PCR) Cancelled Coronavirus NL63 (PCR) Cancelled Human Metapneumovir PCR Cancelled Influenza A (RT-PCR) Negative Influenza A (H1) PCR Cancelled Influ A (H1/09) PCR Cancelled Influenza A (H3) PCR Cancelled Influenza Type A (PCR) Cancelled Influenza B (RT-PCR) Negative Influenza Type B (PCR) Cancelled M. pneumoniae (PCR) Cancelled Parainfluenza 1 (PCR) Cancelled Parainfluenza 2 (PCR) Cancelled Parainfluenza 3 (PCR) Cancelled Parainfluenza 4 (PCR) Cancelled RSV (RT-PCR) Negative RSV (PCR) Cancelled Entero/Rhino (PCR) Cancelled SARS-CoV-2 (PCR) Cancelled SARS-CoV-2 RNA (RT-PCR) Negative Quality VTE Prophylaxis VTE prophylaxis: mechanical ordered
[2025-03-16] MEDS: BISACODYL 5 MG TABLET EC PO (13:37)
[2025-03-16] MEDS: TAMSULOSIN HCL 0.4 MG CAPSULE 0.8 MG PO (21:10)
[2025-03-16] MEDS: GABAPENTIN 300 MG CAPSULE PO (21:16)
[2025-03-16] MEDS: ACETAMINOPHEN 325 MG TABLET 650 MG PO (21:16)
[2025-03-16] MEDS: CALCIUM CARBONATE (TUMS) 500 MG (200 MG ELEMENTAL) PO (23:21)
[2025-03-17] VITALS (15 sets, daily range): BP systolic 137–160; BP diastolic 62–90; PULSE 65–83; RESP 14–20; TEMP 36.5–36.8; O2SAT 90–99
[2025-03-17] MEDS: MEROPENEM 1 GM in SODIUM CHLORIDE 0.9% IV 100 ML 200 ML IVPB ×2 (00:36→12:39)
[2025-03-17 05:18] LABS: Hematocrit 30.2 % (42.0-52.0); Hemoglobin 8.9 g/dL (14.0-18.0); Immature Granulocyte Percent A 0.5 % (0-0.5); Lymphocytes Absolute Auto 0.48 K/mm3 (0.9-3.2); Mean Corpuscular HGB Conc 29.5 g/dl (32-36); Mean Corpuscular Hemoglobin 25.4 pg (26-34); Mean Corpuscular Volume 86.3 fl (80-100); Nucleated Red Blood Cells Absolute Auto 0.000 K/mm3 (0.0-0.012); Nucleated Red Blood Cells Perc 0.0 % (0.0-0.2); Platelet Count Result 162 k/mm3 (150-375); Red Blood Count 3.50 M/mm3 (4.6-6.20); White Blood Count 8.7 K/mm3 (4.5-10.0)
[2025-03-17 05:45] LABS: Alanine Aminotransferase 13 U/L (6-50); Albumin Level 3.2 g/dL (3.5-5.1); Alkaline Phosphatase 85 U/L (38-126); Anion Gap 0 mmol/L (4-12); Aspartate Amino Transferase 24 U/L (17-59); Bilirubin,Total 0.3 mg/dL (0.2-1.3); Blood Urea Nitrogen 50 mg/dL (9-20); Calcium 8.3 mg/dL (8.4-10.2); Carbon Dioxide 34 mmol/L (22-30); Chloride 96 mmol/L (98-107); Estimated CRCL calculation 36 ml/min; Estimated Glomerular Filt Rate 42; Glucose 111 mg/dL (65-110); Magnesium 2.3 mg/dL (1.6-2.3); Potassium 4.4 mmol/L (3.4-5.0); Sodium 130 mmol/L (137-145); Total Protein 6.2 g/dL (6.3-8.2)
[2025-03-17 05:51] LABS: Band Neutrophils Percent 0 % (0-6); Poikilocytosis 1+; Schistocytes None Seen
--- NOTE | 2025-03-17 05:51 | PCRCNOTE ---
Sputum sample collected, RN notified
[2025-03-17] MEDS: FINASTERIDE 5 MG TABLET PO (08:06)
[2025-03-17] MEDS: ATORVASTATIN 40 MG TABLET 80 MG PO (08:06)
[2025-03-17] MEDS: FUROSEMIDE 40 MG TABLET PO (08:06)
[2025-03-17] MEDS: DOCUSATE SODIUM 100 MG CAPSULE PO (08:07)
[2025-03-17] MEDS: CLOPIDOGREL BISULFATE 75 MG TABLET PO (08:07)
[2025-03-17] MEDS: guaiFENesin 12 HR 600 MG TABCR 1200 MG PO ×2 (08:07→20:33)
[2025-03-17] MEDS: IPRATROPIUM 0.5 MG/ALBUTEROL SULFATE 2.5 MG AMPUL.NEB 3 ML INHALATION ×3 (09:18→21:31)
[2025-03-17] MEDS: UMECLIDINIUM/VILANTEROL 62.5-25 MCG ELLIPTA 1 PUFF INHALATION (09:18)
[2025-03-17] MEDS: ACETYLCYSTEINE 20% INHAL SOLN 800 MG/4 ML VIAL 200 MG INHALATION ×3 (09:19→21:31)
[2025-03-17] MEDS: levoFLOXacin 750 MG/D5W 150 ML 750 MG/150 ML BAG 100 MG IVPB (11:06)
--- NOTE | 2025-03-17 13:08 | P.PNIM_ITS ---
Progress Note: A&P Assessment and Plan (1) Hemoptysis: Code(s): R04.2 - Hemoptysis Status: Acute Assessment and Plan: Pulmonology consulted recommendations pending Hold anticoagulation (2) COPD exacerbation: Code(s): J44.1 - Chronic obstructive pulmonary disease with (acute) exacerbation Status: Acute Assessment and Plan: IV Levaquin and Meropenem DuoNeb Guaifenesin Steroids (3) Pneumonia: Code(s): J18.9 - Pneumonia, unspecified organism Status: Acute Assessment and Plan: IV Levaquin and Meropenem monitor cultures (4) Multiple pulmonary nodules determined by computed tomography of lung: Code(s): R91.8 - Other nonspecific abnormal finding of lung field Status: Acute Assessment and Plan: Left-sided pulmonary nodules measuring 10 mm or less. Cannot exclude primary bronchogenic carcinoma or metastatic disease versus infectious/inflammatory process. awaiting pulm eval (5) Heart failure with preserved ejection fraction: Code(s): I50.30 - Unspecified diastolic (congestive) heart failure Status: Acute Assessment and Plan: Restart home Lasix no need for IV Lasix patient is euvolemic (6) Coronary artery disease: Qualifiers: Coronary Disease-Associated Artery/Lesion type: unspecified vessel or lesion type [place] vs. transplanted heart: [place] heart Associated angina: without angina Qualified Code(s): I25.10 - Atherosclerotic heart disease of [place] coronary artery without angina pectoris Code(s): I25.10 - Atherosclerotic heart disease of [place] coronary artery without angina pectoris Status: Acute Assessment and Plan: Restart Lipitor, Coreg, Plavix, (7) Chronic kidney disease, stage IV (severe): Code(s): N18.4 - Chronic kidney disease, stage 4 (severe) Status: Chronic Assessment and Plan: Avoid nephrotoxic medications (8) BPH (benign prostatic hyperplasia): Qualifiers: Lower urinary tract symptom presence: unspecified whether lower urinary tract symptoms present Qualified Code(s): N40.0 - Benign prostatic hyperplasia without lower urinary tract symptoms Code(s): N40.0 - Benign prostatic hyperplasia without lower urinary tract symptoms Status: Acute Assessment and Plan: Continue Proscar and Flomax Plan Bronchiectasis exacerbation and pneumonia will complete Levaquin and Meropenem today Monitor cultures CT chest reviewed MAC Restarted on Azithromycin, EThambutol and Rifabutin by pulmonology I discussed with Dr Jasmine today and she noted that patient will be ready from her standpoint to discharge tomorrow Pulmonology following monitor DVT prophylaxis SCDs, no AC due to hemoptysis discharge tomorrow Subjective Date/time seen: 03/17/25 13:08 Interval history: Comfortable at bedside Pulm noted patient can discharge tomorrow Review of Systems Review of Systems: 12 systems were reviewed and are negativ e except for as per HPI. Exam Narrative: General: well appearing, appears stated age. HEENT: normocephalic, atraumatic. Mucous membranes moist. EOMI, PERRLA, bilateral sclera anicteric, no conjunctival injection. Neck supple without JVD, lymphadenopathy, or bruit. Respiratory: clear to ascultation bilaterally. No rales/rhonic/wheezes. Cardiovascular: Regular rate and rhythm, normal S1-S2 upon ascultation. No murmurs, rubs, or clicks. PMI is nondisplaced, capillary refill less than 3 second. Abdomen: Soft, round, no pulsatile masses, nondistended and nontender. No rebound, no guarding. No CVA tenderness, no hepatosplenomegaly. Bowel sounds present to all four quadrants. No high pitch or tinkling sounds, resonant to percussion. Extremities: No cyanosis, clubbing, Pulses are palpable 2/2. Active ROM to all four extremities. 1+ pedal edema Neuro: Alert and orientated x 4. PERRLA. Cranial nerves 2-12 intact without focal deficit. Skin: Warm, dry, and intact, without rash, erythema, or lesion. Psych: pleasant, cooperative, normal speech, normal affect, no hallucinations, no dysarthia Objective Data Vital Signs Vital Signs: Vital Signs - 24 hr 03/16/25 15:55 03/16/25 16:00 03/16/25 16:10 Temperature Pulse Rate 79 81 74 Respiratory Rate 16 20 Blood Pressure 151/69 H Pulse Oximetry 97 Oxygen Delivery Oxygen Flow Rate Fraction of Inspired Oxygen 03/16/25 18:38 03/16/25 20:00 03/16/25 20:00 Temperature 97.3 F L Pulse Rate 75 81 Respiratory Rate 18 18 Blood Pressure 151/70 H Pulse Oximetry 96 97 98 Oxygen Delivery Nasal Cannula Nasal Cannula Oxygen Flow Rate 2 4 Fraction of Inspired Oxygen 03/16/25 20:17 03/16/25 20:27 03/16/25 20:33 Temperature Pulse Rate 71 71 Respiratory Rate 18 18 Blood Pressure Pulse Oximetry 95 Oxygen Delivery Nasal Cannula Oxygen Flow Rate 4 Fraction of Inspired Oxygen 03/16/25 21:11 03/17/25 00:00 03/17/25 04:00 Temperature 97.7 F 98.0 F Pulse Rate 81 67 79 Respiratory Rate 20 18 Blood Pressure 154/90 H 155/70 H Pulse Oximetry 98 96 Oxygen Delivery Oxygen Flow Rate Fraction of Inspired Oxygen 03/17/25 05:00 03/17/25 08:00 03/17/25 08:06 Temperature Pulse Rate 71 75 76 Respiratory Rate 18 16 Blood Pressure 143/75 H Pulse Oximetry 96 Oxygen Delivery Oxygen Flow Rate Fraction of Inspired Oxygen 03/17/25 08:06 03/17/25 09:22 03/17/25 09:22 Temperature Pulse Rate 76 83 Respiratory Rate 18 20 Blood Pressure Pulse Oximetry 99 90 Oxygen Delivery Nasal Cannula Nasal Cannula Oxygen Flow Rate 4 4 Fraction of Inspired Oxygen 36 03/17/25 09:29 03/17/25 11:51 Temperature Pulse Rate 69 65 Respiratory Rate 20 14 Blood Pressure 137/63 Pulse Oximetry 99 Oxygen Delivery Oxygen Flow Rate Fraction of Inspired Oxygen Intake/Output Intake/Output: Intake & Output 03/14/25 03/15/25 03/16/25 03/17/25 23:59 23:59 23:59 23:59 Intake Total 2320 1870 1950 1220 Output Total 1350 1100 700 850 Balance 211 037 3030 370 Meds/Results Medications: Active Medications Generic Name Dose Route Start Last Admin Trade Name Freq PRN Reason Stop Dose Admin Acetaminophen 650 mg 03/13/25 10:51 03/16/25 21:16 Acetaminophen 325 Mg Tablet PO 650 mg Q4H PRN Administration Mild Pain (1-3) or Fever Acetylcysteine 200 mg 03/16/25 08:00 03/17/25 09:19 Acetylcysteine 20% Inhal Soln 800 Mg/4 Ml Vial INHALATION 200 mg TID@0800,1400,2000 JUSTIN Administration Albuterol 2.5 mg 03/14/25 22:51 03/14/25 23:20 Albuterol Sulfate Neb 2.5 Mg/3 Ml Inh INHALATION 2.5 mg Q6HRT PRN Administration Shortness Of Breath Albuterol/Ipratropium 3 ml 03/15/25 08:00 03/17/25 09:18 Ipratropium 0.5 Mg/Albuterol Sulfate 2.5 Mg Ampul.Neb 3 Ml INHALATION 3 ml 0800, JUSTIN Administration Amlodipine Besylate 10 mg 03/13/25 21:00 03/16/25 21:11 Amlodipine Besylate 10 Mg Tablet PO 10 mg HS JUSTIN Administration Atorvastatin Calcium 80 mg 03/14/25 09:00 03/17/25 08:06 Atorvastatin 40 Mg Tablet PO 80 mg DAILY JUSTIN Administration Carvedilol 25 mg 03/13/25 21:00 03/17/25 08:06 Carvedilol 25 Mg Tablet BY MOUTH 25 mg Q12HR JUSTIN Administration Clopidogrel Bisulfate 75 mg 03/14/25 09:00 03/17/25 08:07 Clopidogrel Bisulfate 75 Mg Tablet PO 75 mg DAILY JUSTIN Administration Docusate Sodium 100 mg 03/14/25 09:00 03/17/25 08:07 Docusate Sodium 100 Mg Capsule PO 100 mg DAILY JUSTIN Administration Finasteride 5 mg 03/14/25 09:00 03/17/25 08:06 Finasteride 5 Mg Tablet PO 5 mg DAILY JUSTIN Administration Furosemide 40 mg 03/14/25 09:00 03/17/25 08:06 Furosemide 40 Mg Tablet PO 40 mg QAM JUSTIN Administration Gabapentin 300 mg 03/13/25 13:02 03/16/25 21:16 Gabapentin 300 Mg Capsule PO 300 mg DAILY PRN Administration neuropathy Guaifenesin 1,200 mg 03/13/25 21:00 03/17/25 08:07 Guaifenesin 12 Hr 600 Mg Tabcr PO 1,200 mg Q12HR JUSTIN Administration Levofloxacin/Dextrose 750 mg in 150 mls @ 100 mls/hr 03/13/25 11:15 03/17/25 11:06 Levaquin 750 Mg/D5w 150 Ml IVPB 100 mls/hr Q48H JUSTIN Administration Meropenem 1 gm/ Sodium 100 mls @ 200 mls/hr 03/16/25 13:00 03/17/25 12:39 Chloride IVPB 200 mls/hr Q12H JUSTIN Administration Loratadine 10 mg 03/13/25 13:11 Loratadine 10 Mg Tablet PO HS PRN allergy symptoms Polyethylene Glycol 17 gm 03/16/25 13:12 03/16/25 13:37 Polyethylene Glycol 3350 17 Gm Powd.Pack PO 17 gm QAM PRN Administration Constipation Prednisone 40 mg 03/14/25 08:00 03/17/25 08:06 Prednisone 20 Mg Tablet PO 40 mg DAILY@0800 JUSTIN Administration Sodium Chloride 6 ml 03/15/25 05:00 03/16/25 06:09 Sodium Chlor 3% 15 Ml Neb (Respiratory Therapy) INHALATION Not Given DAILY@0500 JUSTIN Tamsulosin HCl 0.8 mg 03/13/25 21:00 03/16/25 21:10 Tamsulosin Hcl 0.4 Mg Capsule PO 0.8 mg HS JUSTIN Administration Tramadol HCl 50 mg 03/13/25 13:02 Tramadol Hcl (*Crx) 50 Mg Tablet PO Q6H PRN pain 4-6 Umeclidinium/Vilanterol 1 puff 03/14/25 08:00 03/17/25 09:18 Umeclidinium/Vilanterol 62.5-25 Mcg Ellipta INHALATION 1 puff DAILYRT JUSTIN Administration Radiology Results: ITS Impressions Chest X-Ray 03/13/25 08:56 Impression: 1: Stable chronic interstitial lung disease with chronic left pleural thickening/effusion. No significant interval change. Chest CTA 03/13/25 09:16 IMPRESSION: 1. No evidence for pulmonary embolism in the central pulmonary arteries. Evaluation of peripheral pulmonary arteries limited. 2: Severe emphysema with bronchiectasis and mucous plugging. 3: Left-sided pulmonary nodules measuring 10 mm or less. Cannot exclude primary bronchogenic carcinoma or metastatic disease versus infectious/inflammatory process. 4: Patchy left lower lobe consolidation which may represent atelectasis, aspiration related inflammation or pneumonia. 5: Mediastinal and hilar lymphadenopathy which can be reactive or related to prior granulomatous disease or chronic inflammation. Differential diagnosis includes metastatic disease, smoking-related lymph node hyperplasia lymphoma. Labs Labs: Laboratory Results - last 24 hr 03/17/25 04:50 WBC 8.7 RBC 3.50 L Hgb 8.9 L Hct 30.2 L MCV 86.3 MCH 25.4 L MCHC 29.5 L RDW 15.7 H Plt Count 162 MPV 10.0 Immature Gran % (Auto) 0.5 Neut % (Auto) 85.8 H Lymph % (Auto) 5.5 L [place] % (Auto) 8.2 Eos % (Auto) 0.0 Baso % (Auto) 0.0 L Lymph # (Auto) 0.48 L [place] # (Auto) 0.7 H Eos # (Auto) 0.0 Baso # (Auto) 0.0 Abs Immat Gran (auto) 0.04 H Absolute Neuts (auto) 7.5 H Absolute Nucleated RBC 0.000 Band Neutrophils % 0 Nucleated RBC % 0.0 Platelet Estimate Adequate Poikilocytosis 1+ Schistocytes None seen Sodium 130 L Potassium 4.4 Chloride 96 L Carbon Dioxide 34 H Anion Gap 0 L BUN 50 H Creatinine 1.62 H Estim Creat Clear Calc 36 Estimated GFR 42 L Glucose 111 H Calcium 8.3 L Magnesium 2.3 Total Bilirubin 0.3 AST 24 ALT 13 Alkaline Phosphatase 85 Total Protein 6.2 L Albumin 3.2 L Quality VTE Prophylaxis VTE prophylaxis: mechanical ordered
[2025-03-17 14:06] LABS: Iron 49 ug/dL (49-181)
[2025-03-17 14:16] LABS: Percent Iron Saturation 13 % (20-50)
[2025-03-17 14:43] LABS: Ferritin 13.70 ng/mL (11.1-264)
[2025-03-17] MEDS: CALCIUM CARBONATE (TUMS) 500 MG (200 MG ELEMENTAL) PO ×2 (15:21→21:38)
[2025-03-17] MEDS: ACETAMINOPHEN 325 MG TABLET 650 MG PO ×2 (15:24→20:33)
[2025-03-17] MEDS: TAMSULOSIN HCL 0.4 MG CAPSULE 0.8 MG PO (20:32)
[2025-03-17] MEDS: GABAPENTIN 300 MG CAPSULE PO (20:34)
[2025-03-18] VITALS: BP 147/64; PULSE 66; RESP 16; TEMP 36.5; O2SAT 96
[2025-03-18] MEDS: MEROPENEM 1 GM in SODIUM CHLORIDE 0.9% IV 100 ML 200 ML IVPB ×2 (01:16→12:38)
[2025-03-18 04:00] VITALS: BP 156/68; PULSE 69; RESP 18; TEMP 36.5; O2SAT 97
[2025-03-18] MEDS: ACETAMINOPHEN 325 MG TABLET 650 MG PO ×2 (04:08→10:00)
[2025-03-18] MEDS: SODIUM CHLOR 3% 15 ML NEB (RESPIRATORY THERAPY) 6 ML INHALATION ×2 (06:02)
--- NOTE | 2025-03-18 06:04 | PCRCNOTE ---
No order for sputum induction talked to RN.
[2025-03-18 07:48] VITALS: BP 136/72; PULSE 69; RESP 16; O2SAT 96
[2025-03-18] MEDS: UMECLIDINIUM/VILANTEROL 62.5-25 MCG ELLIPTA 1 PUFF INHALATION (08:04)
[2025-03-18] MEDS: IPRATROPIUM 0.5 MG/ALBUTEROL SULFATE 2.5 MG AMPUL.NEB 3 ML INHALATION (08:04)
[2025-03-18 08:05] VITALS: PULSE 77; RESP 20; O2SAT 96
[2025-03-18] MEDS: ACETYLCYSTEINE 20% INHAL SOLN 800 MG/4 ML VIAL 200 MG INHALATION (08:05)
[2025-03-18 08:20] VITALS: PULSE 68; RESP 20
[2025-03-18] MEDS: guaiFENesin 12 HR 600 MG TABCR 1200 MG PO (09:47)
[2025-03-18] MEDS: FUROSEMIDE 40 MG TABLET PO (09:47)
[2025-03-18 09:48] VITALS: PULSE 71; PULSE 74; RESP 18; O2SAT 95
[2025-03-18] MEDS: CLOPIDOGREL BISULFATE 75 MG TABLET PO (09:48)
[2025-03-18] MEDS: ATORVASTATIN 40 MG TABLET 80 MG PO (09:48)
[2025-03-18] MEDS: DOCUSATE SODIUM 100 MG CAPSULE PO (09:48)
[2025-03-18] MEDS: FINASTERIDE 5 MG TABLET PO (09:48)
[2025-03-18] MEDS: CALCIUM CARBONATE (TUMS) 500 MG (200 MG ELEMENTAL) PO (09:57)
[2025-03-18 10:06] LABS: Anion Gap 6 mmol/L (4-12); Blood Urea Nitrogen 49 mg/dL (9-20); Calcium 8.8 mg/dL (8.4-10.2); Carbon Dioxide 35 mmol/L (22-30); Chloride 95 mmol/L (98-107); Estimated CRCL calculation 36 ml/min; Estimated Glomerular Filt Rate 43; Glucose 192 mg/dL (65-110); Potassium 3.8 mmol/L (3.4-5.0); Sodium 136 mmol/L (137-145)
--- NOTE | 2025-03-18 11:27 | P.DS_ITS ---
DS: Admitting Diagnosis Discharge Date 03/18/25 Admitting Diagnosis Shortness of breath DS: Discharge Diagnosis Discharge Diagnosis (1) Hemoptysis, unspecified: Code(s): R04.2 - Hemoptysis Status: Acute (2) Pseudomonas respiratory infection: Code(s): J98.8 - Other specified respiratory disorders; B96.5 - Pseudomonas (aeruginosa) (mallei) (pseudomallei) as the cause of diseases classified elsewhere Status: Acute DS: Summary Hospital Course Hospital Course: 74-year-old male past medical history of CAD, CKD stage 4, chronic respiratory failure on home oxygen, heart failure with preserved ejection fraction, pacemaker and hypertension presents the hospital with shortness of breath. Patient also complains of a cough with bloody sputum. Patient states that he has never had bloody sputum before and this all started yesterday. It has progressively gotten worse. Patient denies fever chills nausea vomiting or recent weight loss. Lab work in the ED shows anemia at 10.3 which is higher than baseline, ABG pH 7.4, pCO2 57, PO2 79, bicarb 35, carbon dioxide 36, BUN 28, creatinine 1.77 which is at baseline, GFR 38, lactic acid of 0.5, troponin 0.015. Chest x-ray shows Stable chronic interstitial lung disease with chronic left pleural thickening/effusion. Chest CT shows no PE, severe emphysema and mucous plugging, left-sided pulmonary nodules measuring 10 mm or less, patchy left lower consolidation, and mediastinal and hilar lymphadenopathy. Pulmonology has been consulted. Pulmonology evaluated and noted that patient was being treated for FERNANDO however it was discontinued due to adverse effects. Dr Schultz will contact patient's ID for treatment adjustment. Patient was managed for bronchiectasis exacerbation with prior pseudomonas, completed Levaquin and Meropenem. Hemoptysis resolved. Currently on baseline oxygen. F/u with PCP in 3-5 days F/u with Pulmonology as instructed Time Spent with Patient Time attestation: Total time spent providing and/or coordinating discharge services: DS: Data Data Completed and Pending Labs on day of discharge: Labs from last 24 hours 03/18/25 03/17/25 09:33 04:47 Sodium 136 L Potassium 3.8 Chloride 95 L Carbon Dioxide 35 H Anion Gap 6 BUN 49 H Creatinine 1.60 H Estim Creat Clear Calc 36 Estimated GFR 43 L Glucose 192 H Calcium 8.8 Iron 49 TIBC 366 % Saturation 13 L Ferritin 13.70 Preliminary micro results at discharge 03/15/25 00:54 Sputum Culture - Preliminary Sputum Gram negative bacilli isolated 03/15/25 22:04 Acid Fast Bacilli Culture - Preliminary Sinus Right Maxillary 03/13/25 07:56 Blood Culture - Preliminary Blood 03/13/25 07:39 Blood Culture - Preliminary Blood Discharge Plan Discharge Attending physician on discharge: Bethany Reza Consulting providers: Radha Schultz Discharging Clinician: Bethany Reza Anticipated Discharge Date/Time: 03/18/25 10:59 Patient Disposition: Home Activity: as tolerated Diet: as tolerated and heart healthy Patient Instructions: Antibiotic Form, Clopidogrel (By mouth) Patient Language: Monegasque Stand Alone Forms: General Discharge Information Follow-up/Referrals: Radha Schultz MD [Physician] - (F/u with Dr schultz as instructed ) Ilir Stover DO [Primary Care Provider] - (F/u with PCP in 3-5 days ) Discharge Medications: Continued clopidogrel 75 mg tablet 75 mg PO DAILY pantoprazole 40 mg tablet,delayed release (DR/EC) 40 mg PO DAILY amlodipine 10 mg tablet 10 mg PO HS finasteride 5 mg tablet 5 mg PO DAILY atorvastatin [Lipitor] 80 mg tablet 80 mg PO DAILY cilostazol 50 mg tablet 50 mg PO BID furosemide 40 mg tablet 40 mg PO QAM gabapentin 300 mg capsule 300 mg PO DAILY PRN (Reason: neuropathy) tramadol 50 mg tablet 50 mg PO Q6H PRN (Reason: pain) triamcinolone acetonide 0.1 % cream 1 applic topical BID PRN (Reason: itching) tamsulosin 0.4 mg capsule 0.8 mg PO HS acetaminophen 500 mg Tablet 1,000 mg PO Q6H PRN (Reason: Mild Pain (Scale Score 1-4)) Patient Comments: usually once a day doxepin 25 mg capsule 25 mg PO QHS PRN (Reason: Sleep) albuterol sulfate 90 mcg/actuation HFA aerosol inhaler 2 puff INHALATION Q6H PRN (Reason: shortness of breath or wheezing) Centrum 18-400 mg-mcg tablet 1 tablet PO DAILY Zyrtec 10 mg capsule 10 mg PO HS PRN (Reason: allergy symptoms) Dupixent Syringe 300 mg/2 mL syringe 300 mg subcut .COMPLEX Qty: 4 10RF Rx Instructions: 300 mg subcut 1 every 14 days; for rash on the and 15th of every month carvedilol 25 mg tablet See Rx Instructions .ROUTE .COMPLEX Qty: 200 1RF Dose Instruction: TAKE 1 TABLET BY MOUTH EVERY 12 HOURS Rx Instructions: TAKE 1 TABLET BY MOUTH EVERY 12 HOURS potassium chloride 10 mEq capsule, extended release 10 meq PO DAILY Qty: 100 1RF albuterol sulfate 2.5 mg /3 mL (0.083 %) solution for nebulization 2.5 mg inhalation Q4-6H PRN (Reason: SOB) Qty: 180 6RF Stiolto Respimat 2.5-2.5 mcg/actuation mist See Rx Instructions .ROUTE .COMPLEX Qty: 12 3RF Dose Instruction: USE 2 INHALATIONS BY MOUTH DAILY Rx Instructions: USE 2 INHALATIONS BY MOUTH DAILY Date of admission: 03/14/25 14:36 Primary Care Provider: Ilir Stover Admitting Provider: Tonia Corona Attending physician on admission: Tonia Corona Condition: Stable
== END 2025-03-18 13:55 | disposition home or self-care (01) | DRG 178 ==
LOC: ANHED 07:49 → ANH2MED 11:56
PROVIDERS: Internal Medicine Critical Care Medicine; Nurse Practitioner Gerontology; Admitting Provider Family Medicine; Emergency Provider Emergency Medicine; PCP Internal Medicine; Visit Provider Internal Medicine
DX: A31.0 Pulmonary mycobacterial infection (principal); I13.0 Hypertensive heart and chronic kidney disease with heart failure and stage 1 through stage 4 chronic kidney disease, or unspecified chronic kidney disease; J47.1 Bronchiectasis with (acute) exacerbation; J44.1 Chronic obstructive pulmonary disease with (acute) exacerbation; J44.0 Chronic obstructive pulmonary disease with (acute) lower respiratory infection; R04.2 Hemoptysis; J96.10 Chronic respiratory failure, unspecified whether with hypoxia or hypercapnia; I50.32 Chronic diastolic (congestive) heart failure; N18.4 Chronic kidney disease, stage 4 (severe); J15.1 Pneumonia due to Pseudomonas; J18.9 Pneumonia, unspecified organism; I25.10 Atherosclerotic heart disease of native coronary artery without angina pectoris; I25.82 Chronic total occlusion of coronary artery; I70.202 Unspecified atherosclerosis of native arteries of extremities, left leg; D64.9 Anemia, unspecified; E78.5 Hyperlipidemia, unspecified; N40.0 Benign prostatic hyperplasia without lower urinary tract symptoms; L40.9 Psoriasis, unspecified; K21.9 Gastro-esophageal reflux disease without esophagitis; L30.9 Dermatitis, unspecified; R91.8 Other nonspecific abnormal finding of lung field; G47.33 Obstructive sleep apnea (adult) (pediatric); M19.90 Unspecified osteoarthritis, unspecified site; Z96.643 Presence of artificial hip joint, bilateral; Z20.822 Contact with and (suspected) exposure to COVID-19; Z99.81 Dependence on supplemental oxygen; Z79.01 Long term (current) use of anticoagulants; Z79.02 Long term (current) use of antithrombotics/antiplatelets; Z95.0 Presence of cardiac pacemaker; Z95.820 Peripheral vascular angioplasty status with implants and grafts; Z87.891 Personal history of nicotine dependence
CPT/HCPCS: 36415; 36600; 71046; 71275; 80048; 80053; 82728; 82805; 83540; 83550; 83605; 83735; 84484; 85018; 85025; 85610; 85730; 86140; 87040; 87070; 87205; 87449; 87637; 87899; 93005; 94640; 94667; 97110; 97116; 97161; 97165; 97530; 99285; A9270; G0378; J1956; J2185; J7030; J7512; Q9967

== ENCOUNTER 2025-07-31 13:01 | Outpatient (CLI) | payer MEDICARE, SELFPAY ==
--- NOTE | ~2025-07-31 | US_ITS ---
EXAMINATION: US renal BI, 07/31/2025 13:02 [employer] [employer] HISTORY: N18.32 - Chronic kidney disease, stage 3b Comparison: None Technique: Carrera-scale and color Doppler images were obtained. Findings: KIDNEYS: The renal cortices are intact, there are no solid masses or calculi, no hydronephrosis. Right Kidney: Right kidney measures 9.9 x 4.8 x 3.9 cm, superior pole simple cyst 3 x 2.9 cm. Left Kidney: Left kidney 9.6 x 3.5 x 6.2 cm, simple appearing renal cysts the largest mid pole 2.1 x 1.9 cm. Bladder: There is debris noted within the bladder. . Impression: 1. Bilateral simple appearing renal cysts. 2. Nonspecific bladder density. Correlate for symptoms of cystitis Reviewed, dictated and finalized at location [facility] [employer] Impression: 1. Bilateral simple appearing renal cysts. 2. Nonspecific bladder density. Correlate for symptoms of cystitis
== END 2025-07-31 13:02 | disposition home or self-care (01) ==
LOC: GOSHIMG 13:01
PROVIDERS: PCP Internal Medicine; Visit Provider Internal Medicine Nephrology
DX: N18.32 Chronic kidney disease, stage 3b (principal); N28.1 Cyst of kidney, acquired
CPT/HCPCS: 76770

== ENCOUNTER 2025-08-01 14:35 | Inpatient (IN) | payer MEDICARE, SELFPAY ==
--- OUTSIDE RECORDS SUMMARY | 2021-06-06 14:37 | XMS_ITS | Encounter Summary ---
Author Organization [facility] Facility Care Team Providers Care Cleaning Validation Consultant Name Role Phone Ross Espinosa MD Primary Care Provider [phone] Encounter Details Date Type Department Care Team (Late st Contact Info) Description 06/06/2021 3:37 PM CDT Hospital Encounter Yamilet Faustin MD [address] [place] [address] Social History Tobacco Use Types Packs/Day Years Used Date Smoking Tobacco: Former Cigarettes Q uit: 08/22/2009 Smokeless Tobacco: Never AUDIT-C Answer Date Recorded Frequency of Alcohol Consumption Not on file 08/24/2024 Q2: How many drinks containi ng alcohol do you have on a typical day when you are drinking? Patient does not drink Frequency of Binge Drinking Not on file 10/2024 Personal Safety Answer Date Recorded Have you ever been in or are you currently in a harmful physical or emotional relationship or is someone making you feel afraid or unsafe? 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 Sexual Orientation Not on file documented as of this encounter Functional Status * Difference in Last Two Darren Scores Answer Date of Assessment Author -2 01/27/2024 8:25 AM CDT Gauri Bernal RN * Question Answer Date of Assessment Author MAP (mmHg) 78 03/03/2022 4:35 PM CDT Sandra Farmer RN * Question Answer Date of Assessment Author BP Method Automatic 06/23/2021 8:12 AM CDT Sury Peck RN * Hernandez Fall Risk Question Answer Date of Assessment Author History of Falling 0 01/27/2024 8: 25 AM CDT Chasity Bernal RN Secondary Diagnosis 15 01/27/2024 8 :25 AM CDT Chasity Bernal RN Ambulatory Aids 15 01/27/2024 8:25 AM CDT Chasity Bernal RN Intravenous Therapy/Heparin/Saline Lock 20 01/27/2024 8:25 AM CDT Chasity Bernal RN Gait/Transferring 0 01/27/2024 8:2 5 AM CDT Chasity Bernal RN Mental Status 0 01/27/2024 8:25 AM CDT Chasity Bernal RN Auto Low/High - if selected proceed to interventions (retired) N/A-fall assessment required 06/23/2021 8:12 AM CDT Sury Peck RN Morse Fall Risk Score (Score >= 45 places fall precaution order) 50 01/27/2024 8:25 AM CDT Chasity Bernal RN Prior Fall Event (Autopopulated from EMR) None found 01/27/2024 8:25 AM CDT Chasity Bernal RN * Darren Scale Question Answer Date of Assessment Author Sensory Perceptions 4 01/27/2024 8:25 AM CD T Chasity Bernal RN Moisture 4 01/27/2024 8:25 AM CDT Chasity Spear RN Activity 4 01/27/2024 8:25 AM CDT Chasity Spear RN Mobility 4 01/27/2024 8:25 AM CDT Chasity Spear RN Nutrition 3 01/27/2024 8:25 AM CDT Chasity Spear RN Friction and Shear 3 01/27/2024 8:25 AM CDT Chasity Bernal RN Darren Scale Score 22 01/27/2024 8:25 AM CDT Chasity Bernal RN * BP Location Answer Date of Assessment Author Right arm 04/23/2025 10:45 AM CDT Roxanna Archer CMA * Question Answer Date of Assessment Author Arterial Line MAP (mmHg) 72 06/13/2021 8:00 AM Nabil Tucker RN Arterial Line BP 126/47 06/13/2021 8:00 AM CDT Nabil Martinez RN * Fall Risk Interventions Question Answer Date of Assessment Author All Low Fall Interventions Applied Yes 06/23/2021 8:12 AM Sury Kern RN All Moderate Fall Interventions Applied No 06/23/2021 8:12 AM H[facility] Sury Peck RN All Moderate Fall Risk Interventions EXCEPT: Gait belt at bedside 06/23/2021 8:12 AM Sury Kern RN All High Fall Risk Interventions Applied No 06/23/2021 8:12 AM Sury Kern RN All High Risk Interventions EXCEPT: Bed alarm;Chair alarm 06/23/2021 8:12 AM Sury Kern RN Additional Interventions Applied Over-bed table on non-exit side;Exit bed on strong/preferred side 06/23/2021 12:17 AM [facility] Emely Chase RN Reason For Exception(s) Incision 06/23/20 8:12 AM Sury Kern RN Reason For Exception(s) Uses call light to get up with staff 06/23/2021 8:12 AM Sury Kern RN * Question Answer Date of Assessment Author PT Functional Mobility Therapeutic activ ity to encourage mobility, transfer training, ambulation 06/20/2021 2:26 PM CDT Britni Cheatham * B.M.A.T. - Bedside Mobility Assessment Tool for Nurses Question Answer Date of Assessment Author Is patient able to participate in the BMAT? Yes 06/22/2021 7:00 AM Loyd Velarde RN BMAT Level Level 3 - Yellow 06/22/2021 7:00 AM Jyoti Armas RN Level 3 Equipment Use assistive device such as cane/walker 06/22/2021 7:00 AM Jyoti Velarde, MARY * Question Answer Date of Assessment Author 1. Has the patient self-reported, presented with clinical signs of, or have a documented history of any of the following within the past 30 days? No 06/10/2021 8:00 PM CDT Daniela Pulido RN * Self-Injurious Risk Level Answer Date of Assessment Author No risk level 06/10/2021 8:00 PM CDT Daniela Pulido, MARY * Pressure Injury Prevention Question Answer Date of Assessment Author Pressure Ulcer Prevention Interventions Keep skin clean and dry (Sensory Perception/Moistur e) 06/22/2021 8:45 PM CDT Emely Chase RN 2 Nurse Skin Assessment Molly Sosa RN 06/13/2021 5:00 A M CDT Edil Sorto RN * Alcohol Use Question Answer Date of Assessment Author Q1: How often do you have a drink containing alcohol? Never 03/03/2022 8:36 AM CDT Phuong Gaitan RN Q2: How many drinks containing alcohol do you have on a typical day when you are drinking? Patient does not drink 08/24/2024 8:40 AM [employer] SPECIALIST Katlyn Hanks RN Q3: How often do you have six or more drinks on one occasion? Never 03/22/2022 2:18 PM CDT Apryl Longoria M A * Integumentary Question Answer Date of Assessment Author Skin Color Appropriate for ethnicity 06/22/2021 8:45 PM CDT Emely Chase RN Skin Condition/Temp Warm;Dry 06/22/2021 8 :45 PM CDT Emely Chase RN Skin Integrity Surgical incision 06/22/2021 8:4 5 PM H[facility] Emely Chase RN Skin Turgor Non-tenting 06/22/2021 8:45 PM CDT Emely Chase RN Integumentary Additional Assessments Yes-Darren 06/22/2021 8:30 AM CDT Jyoti Baldwin RN Integumentary (WDL) WDL 03/03/2022 8 :36 AM CDT Phuong Gaitan RN Skin Location see LDAs 06/22/2021 8:45 PM CDT Emely Chase RN * Darren Scale Question Answer Date of Assessment Author Darren Scale Used Darren 01/27/2024 8:25 AM CDT Chasity Bernal, MARY * Question Answer Date of Assessment Author BP Method Automatic 06/23/2021 8:12 AM CDT Sury Peck, MARY * Question Answer Date of Assessment Author Edema +1 06/17/2021 8:23 AM CDT Ludivina Liriano, RN RUE Edema No pitting 06/22/2021 8:45 PM CDT Emely Chase, RN RLE Edema +1 06/22/2021 8:45 PM CDT Emely Chase, RN LUE Edema No pitting 06/22/2021 8:45 PM CDT Emely Chase, RN LLE Edema +1 06/22/2021 8:45 PM CDT Emely Chase, RN Edema Left upper extremity ;Right lower extremity;Left lower extremity 06/21/2021 10:00 PM CDT Ofelia Cody RN * Question Answer Date of Assessment Author Percent Meal Eaten (%) 25 06/21/2021 6:10 PM CDT Emely Diaz, SHASHANK * BP Location Answer Date of Assessment Author Right arm 04/23/2025 10:45 AM CDT Roxanna Archer CMA * Question Answer Date of Assessment Author Bed In Lowest Position Yes 06/23/2021 4:44 AM CDT Emely Chase RN Bed Wheels Locked Yes 06/23/2021 4:44 AM CDT Emely Chase, MARY * Fall Risk Interventions Question Answer Date of Assessment Author All Low Fall Interventions Applied Yes 06/23/2021 8:12 AM Sury Kern RN All Moderate Fall Interventions Applied No 06/23/2021 8:12 AM [facility] Sury Peck RN All Moderate Fall Risk Interventions EXCEPT: Gait belt at bedside 06/23/2021 8:12 AM [place] Sury Peck RN All High Fall Risk Interventions Applied No 06/23/2021 8:12 AM [place] Sury Peck RN All High Risk Interventions EXCEPT: Bed alarm;Chair alarm 06/23/2021 8:12 AM [facility] Sury Peck RN Additional Interventions Applied Over-bed table on non-exit side;Exit bed on strong/preferred side 06/23/2021 12:17 AM CDT Emely Chase RN Reason For Exception(s) Incision 06/23/20 8:12 AM [facility] Sury Peck RN Reason For Exception(s) Uses call light to get up with staff 06/23/2021 8:12 AM H[place] Sury Peck RN * Question Answer Date of Assessment Author Hygiene [place] care;[place] care 06/22/2021 8:45 PM C Emely Carreno RN Hygiene Level of Assistance Minimal assist 06/22/2021 2:00 PM CDT Omer Saha * ADL Screening Question Answer Date of Assessment Author Patient's Vision Adequate to Safely Complete Daily Activities Yes 06/10/2021 8:00 PM H[facility] Daniela Pulido RN Patient's Judgement Adequate to Safely Complete Daily Activities Yes 06/10/2021 8:00 PM [facility] Daniela Pulido RN Patient's Memory Adequate to Safely Complete Daily Activities Yes 06/10/2021 8:00 PM [facility] Daniela Pulido RN Patient Able to Express Needs/Desires Yes 06/10/2021 8:00 PM [facility] Daniela Pulido RN Dressing Independent 06/10/2021 8:00 PM CDT Daniela Redman RN Grooming Independent 06/10/2021 8:00 PM [facility] Daniela Redman RN Feeding Independent 06/10/2021 8:00 PM [facility] Daniela Redman RN Bathing Independent 06/10/2021 8:00 PM [facility] Daniela Redman RN Toileting Independent 06/10/2021 8:00 PM [facility] Daniela Redman RN In/Out Bed Independent 06/10/2021 8:00 PM [facility] Daniela Redman RN Walks in Home Independent 06/10/2021 8:00 PM H[facility] Daniela Feldman RN Weakness of Legs None 06/10/2021 8:00 PM H[facility] Daniela Gonzalez RN Weakness of Arms/Hands None 06/10/2021 8:00 PM H[facility] Daniela Pulido RN Hearing - Right Ear Hearing aid 06/10/2021 8:00 PM CD T Daniela Pulido RN Hearing - Left Ear Hearing aid 06/10/2021 8:00 PM H[facility] Daniela Pulido RN Dominant hand? Either/ambidextrous 06/10/2021 8:00 PM H[facility] Daniela Pulido RN Decline in ADLs in last 2 weeks? No 06/10/2021 8:00 PM CDT Daniela Pulido RN * Therapy Consults Question Answer Date of Assessment Author PT Evaluation Needed 1 06/10/2021 8:00 PM Daniela Augustine RN OT Evaluation Needed 2 06/10/2021 8:00 PM Daniela Augustine RN CSM CONSULTANT Evaluation Needed 2 06/10/2021 8:00 PM CDT Daniela Pulido RN * Assistive Devices Question Answer Date of Assessment Author Assistive Devices/DME Cane 06/10/2021 8:00 PM CDT Daniela Pulido RN * Nutrition Question Answer Date of Assessment Author Feeding Level of Assistance Able to feed self 06/22/2021 7:00 AM H[facility] Jyoti Baldwin RN Appetite Good 06/20/2021 8:00 AM CDT Siddharth Diaz RN documented as of this encounter Mental Status * Question Answer Entry Date Author Level of Consciousness Alert;Awake 8:12 AM CDT Sury Peck RN Orientation Oriented X4 (person, place, time, situation) 06/23/2021 8:12 AM CDT Sury Peck RN * Question Answer Entry Date Author Other Neuro Symptoms Fatigue 06/22/2021 8:30 AM Jyoti De Leon RN * Question Answer Entry Date Author Neuro (WDL) WDL 06/18/2021 9:00 AM CDT Sury Escobedo RN * Tru Cognitive Assessment-Blind (MOCA-Blind) Question Answer Entry Date Author Abstraction-Blind 2 06/19/2021 1:00 PM CDT Sharon Lyon MOCA-Blind Version Version 3 06/19/2021 1:00 PM CDT Sharon Lyon Memory-Blind Memory not scored 06/19/2021 1:00 PM CDT Sharon Lyon Attention-Blind 6 06/19/2021 1:00 PM CDT Sharon Herrera Language-Blind 3 06/19/2021 1:00 PM CDT Sharon Meng Orientation-Blind 5 06/19/2021 1:00 PM CDT Sharon Lyon Education Level-Blind 0 06/19/2021 1:00 PM CDT Sharon Lyon Delayed Recall-Blind 2 06/19/2021 1:00 PM C DT Sharon Lyon Score Evaluation-Blind 18-22 Normal 06/19/2021 1:00 PM CDT Sharon Lyon MOCA Total Score-Blind 18 06/19/2021 1:00 PM CDT Sharon Lyon MOCA-Blind Comments Normal 06/19/2021 1:00 PM CD T Sharon Lyon * Question Answer Entry Date Author Robyn (IRVING) WDL 03/03/2022 8:36 AM CDT Phuong Desai RN documented in this encounter Plan of Treatment Not on file documented as of this encounter Visit Diagnoses Not on filedocumented in this encounter Care Teams Cleaning Validation Consultant Relationship Specialty Start Date End Date Ross Espinosa MD [address] [place] [address] PCP - General Internal Medicine 03/24/21 06/09/21 documented as of this encounter
[2025-08-01] VITALS (14 sets, daily range): BP systolic 156–182; BP diastolic 68–98; PULSE 75–92; RESP 15–26; TEMP 36.6; O2SAT 95–100
--- NOTE | ~2025-08-01 | XR_ITS ---
EXAMINATION: XR chest 2V DATE: 08/01/2025 15:22 INDICATION: Shortness of breath. TECHNIQUE: Frontal and lateral views of the chest were obtained. COMPARISON: Chest x-ray dated 02/21/2025 FINDINGS: Heart size is normal. Severe atherosclerotic aorta. Pacemaker device in place. Severe emphysematous changes of lungs. Stable chronic fibrosis at the left costophrenic angle. IMPRESSION: 1. No acute pulmonary findings. Severe emphysema of lungs with chronic pleural thickening of left costophrenic angle. Severe atherosclerotic aorta. Reviewed, dictated and finalized at location T. TENANCE INSPECTOR
--- NOTE | ~2025-08-01 | XR_ITS ---
XR chest 2V 08/12/2025 08:17 Indication: Pneumonia Procedure: PA and lateral views of the chest Comparison: Comparison to multiple prior studies sequentially, with oldest reviewed study dated 09/04/2024. Findings: Heart size normal. The lungs are hyperinflated which is consistent with, but not diagnostic of chronic obstructive pulmonary disease. There is chronic interstitial lung disease bilaterally without significant change. There is left pleural thickening/effusion which is unchanged with blunting of the costophrenic recess. No pneumothorax. Impression: 1: No acute cardiopulmonary disease. 2: Chronic interstitial lung disease with chronic small left pleural effusion/pleural thickening. Reviewed, dictated and finalized at location O. CONTROL ANALYST Impression: 1: No acute cardiopulmonary disease. 2: Chronic interstitial lung disease with chronic small left pleural effusion/p leural thickening.
--- NOTE | ~2025-08-01 | XR_ITS ---
XR chest 1V portable 08/10/2025 11:56 Indication: Shortness of breath. History of COPD. Procedure: AP portable chest Comparison: Comparison to multiple prior studies sequentially, with oldest reviewed study dated 10/16/2023. Findings: Elevated left diaphragm, chronic. Coarse diffuse interstitial infiltrates bilaterally. Pacemaker leads in expected position. Heart size normal. No pneumothorax. No acute osseous abnormality. Impression: 1: Developing coarse interstitial infiltrates bilaterally which may reflect mild edema, atypical pneumonia and/or chronic interstitial lung disease. Reviewed, dictated and finalized at location O. DIGGER Impression: 1: Developing coarse interstitial infiltrates bilaterally which may reflect mil d edema, atypical pneumonia and/or chronic interstitial lung disease.
--- NOTE | ~2025-08-01 | CT_ITS ---
EXAMINATION: CT chest, abdomen and pelvis with contrast: DATE: 08/01/2025 INDICATION: Shortness of breath. Abdominal pain. History of COPD. TECHNIQUE: CT was performed with 100 cc of IV contrast through chest abdomen pelvis. Radiation dose 470 6Y C.M. COMPARISON: CT chest dated 03/13/2025 CT abdomen pelvis dated 03/15/2024, chest x- ray dated 08/01/2025 FINDINGS: Severe hannah acinar emphysematous lungs. Stable multiple pulmonary nodules measuring up to 10 mm in size in the left lung lower lobe. Peribronchial thickening is also noted in the left lung base suggesting bronchopneumonic changes with mild bronchiectasis. Below the diaphragm, aneurysmal dilation of abdominal aorta is noted again measuring 4 cm in AP diameter at L1-2 level and 3.6 cm at L4-5 level. 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 Severe atherosclerotic disease with severe stenosis of external iliac arteries especially on the right side. Evaluation of pelvis is severely limited due to artifacts from bilateral arthroplasty. No free fluid or free air. IMPRESSION: 1. Severe emphysematous changes of lungs. Peribronchial thickening of left lung base with mild bronchiectasis as mentioned above. Findings are suggestive of bronchopneumonic changes in the left lower lobe. Stable noncalcified nodules of left lung. Continued follow-up by CT scan at 6 months is recommended. 2. Diffuse abdominal aortic aneurysm measuring 4 cm in diameter at L1-2 and 3.6 cm at L4-5 level. 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 3 severe calcific atherosclerotic disease of the iliac arteries on both sides right worse than the left. The evaluation of pelvis limited by artifacts from bilateral hip arthroplasty. Reviewed, dictated and finalized at location T. K EQUIPMENT OPERATOR IMPRESSION: 1. Severe emphysematous changes of lungs. Peribronchial thickening of left lung base with mild bronchiectasis as mentioned above. Findings are suggestive of b ronchopneumonic changes in the left lower lobe. Stable noncalcified nodules of left lung. Continued follow-up by CT scan at 6 months is recommended. 2. Diffuse abdominal aortic aneurysm measuring 4 cm in diameter at L1-2 and 3.6 cm at L4-5 level. 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 3 severe calcific atherosclerotic disease of the iliac arteries on both sides r ight worse than the left. The evaluation of pelvis limited by artifacts from bi lateral hip arthroplasty.
--- NOTE | ~2025-08-01 | US_ITS ---
EXAMINATION: US pelvic limited, 08/04/2025 13:36 COLD STRIP FEEDER HISTORY: Pain Comparison: None Technique: Carrera-scale and color Doppler images were obtained. Findings: There is no gallbladder wall thickening identified. London catheter within the bladder. No gross bladder lesions identified. IMPRESSION: London catheter within the bladder Reviewed, dictated and finalized at location P. STRIP FEEDER
--- NOTE | 2025-08-01 14:44 | ECG_ITS ---
Test Date: 2025-08-01 14:51:48 Measurements Intervals [place] Rate: 74 P: 68 [place]: 171 QRS: 34 QRSD: 138 T: 29 QT: 411 QTc: 456 Interpretive Statements ATRIAL SENSE- ELECTRONIC VENTRICULAR PACEMAKER BASELINE ARTIFACT- I, II, III, AVR, AVL, AVF, V1-V2, V4-V6 NO FURTHER INTERPRETATION IS POSSIBLE ATYPICAL ECG Compared to ECG 03/13/2025 12:13:25 No significant changes Electronically Signed On 08-01-2025 16:21:29 INTERNSHIP COORDINATOR by Juan David George D.O.
[2025-08-01 15:15] LABS: Hematocrit 34.6 % (42.0-52.0); Hemoglobin 10.4 g/dL (14.0-18.0); Immature Granulocyte Percent A 0.3 % (0-0.5); Lymphocytes Absolute Auto 0.73 K/mm3 (0.9-3.2); Mean Corpuscular HGB Conc 30.1 g/dl (32-36); Mean Corpuscular Hemoglobin 28.2 pg (26-34); Mean Corpuscular Volume 93.8 fl (80-100); Nucleated Red Blood Cells Absolute Auto 0.000 K/mm3 (0.0-0.012); Nucleated Red Blood Cells Perc 0.0 % (0.0-0.2); Platelet Count Result 216 k/mm3 (150-375); Red Blood Count 3.69 M/mm3 (4.6-6.20); White Blood Count 7.3 K/mm3 (4.5-10.0)
[2025-08-01 15:26] LABS: Alanine Aminotransferase 16 U/L (6-50); Albumin Level 4.3 g/dL (3.5-5.1); Alkaline Phosphatase 99 U/L (38-126); Anion Gap 5 mmol/L (4-12); Aspartate Amino Transferase 26 U/L (17-59); Bilirubin,Total 0.5 mg/dL (0.2-1.3); Blood Urea Nitrogen 37 mg/dL (9-20); Calcium 9.2 mg/dL (8.4-10.2); Carbon Dioxide 35 mmol/L (22-30); Chloride 100 mmol/L (98-107); Estimated CRCL calculation 23 ml/min; Estimated Glomerular Filt Rate 25; Glucose 113 mg/dL (65-110); Potassium 4.5 mmol/L (3.4-5.0); Sodium 140 mmol/L (137-145); Total Protein 8.1 g/dL (6.3-8.2)
[2025-08-01 18:11] LABS: Add Urine Microscopic? YES; Appearance Urine Clear (Clear); Glucose Urine UA Negative (Negative); Leukocyte Esterase Ur 3+ LEU/UL (Negative); Nitrate Urine Negative (Negative); Non Pathogenic Casts 0-2; Specific Grav Ur 1.008 (1.001-1.035)
[2025-08-01] MEDS: IPRATROPIUM 0.5 MG/ALBUTEROL SULFATE 2.5 MG (BASE) AMPUL.NEB 3 ML INHALATION ×2 (18:14→20:58)
--- NOTE | 2025-08-01 18:19 | ED.GENADULT ---
HPI - General Adult General Chief complaint: Shortness of Breath/Dyspnea Stated complaint: UTI-shortness of breath Time Seen by Provider: 08/01/25 16:59 History of Present Illness HPI narrative: 74-year-old male presenting with concerns for increased shortness of breath and UTI symptoms. Patient states he has been experiencing UTI symptoms for a couple weeks as well as diarrhea for the last month. He reports subjective fever/chills, fatigue anxiety and abdominal pain. Denies chest pain Or any changes from his baseline cough/ oxygen requirements. Reports a history of COPD and is on 4 L of oxygen at baseline and history of blood clots, on Eliquis. Related Data Home Medications ?Medication ?Instructions ?Recorded ?Confirmed ?Last Taken ?Type acetaminophen 500 mg tablet 1,000 mg PO Q6H PRN Mild Pain 06/02/21 08/02/25 Unknown History (Scale Score 1-4) tamsulosin 0.4 mg capsule 0.8 mg PO HS 01/24/23 08/02/25 10/14/23 History albuterol sulfate 90 mcg/actuation 2 puff inhalation Q6H PRN 09/04/24 08/02/25 Unknown History aerosol inhaler shortness of breath or wheezing cetirizine 10 mg capsule (Zyrtec) 10 mg PO HS PRN allergy symptoms 09/04/24 08/02/25 Unknown History multivitamin-ferrous 1 tablet PO DAILY 09/04/24 08/02/25 Unknown History fumarate-folic acid 18 mg-400 mcg tablet (Centrum) atorvastatin 80 mg tablet (Lipitor) 80 mg PO DAILY 01/29/25 08/02/25 03/12/25 History cilostazol 50 mg tablet 50 mg PO BID 01/29/25 08/02/25 03/12/25 History furosemide 40 mg tablet 40 mg PO QAM 01/29/25 08/02/25 Unknown History gabapentin 300 mg capsule 300 mg PO DAILY PRN neuropathy 01/29/25 08/02/25 Unknown History tramadol 50 mg tablet 50 mg PO Q6H PRN pain 01/29/25 08/02/25 Unknown History triamcinolone acetonide 0.1 % 1 applic topical BID PRN itching 01/29/25 08/02/25 Unknown History topical cream amlodipine 5 mg tablet 10 mg PO DAILY 04/30/25 08/02/25 Unknown History guaifenesin 600 mg tablet, 600 mg PO BID 04/30/25 08/02/25 Unknown History extended release 12 hr (Mucinex) polyethylene glycol 3350 17 gram 17 g PO DAILY PRN constipation 04/30/25 08/02/25 Unknown History oral powder packet carvedilol 25 mg tablet (Coreg) 25 mg PO Q12H 08/02/25 08/02/25 Unknown History finasteride 5 mg tablet 5 mg PO DAILY 08/02/25 08/02/25 Unknown History Allergies Allergy/AdvReac Type Severity Reaction Status Date / Time doxepin Allergy Intermediate Dizziness Verified 08/02/25 04:47 oxycodone AdvReac Severe severe Verified 08/02/25 04:47 constipation [facility] Past Medical History Medical History (Updated 08/02/25 @ 17:07 by YAMILET Cueto) Venous insufficiency of both lower extremities Chronic kidney disease, stage IV (severe) Secondary hyperparathyroidism, not elsewhere classified 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) Coronary artery disease severe single vessel coronary artery disease with chronic total occlusion of the proximal RCA with [id number] collaterals Chronic kidney disease, stage 4 (severe) Chronic respiratory failure with hypoxia, on home oxygen therapy 4 L nasal cannula Pseudomonas respiratory infection Femoral artery stenosis, left Heart failure with preserved ejection fraction echocardiogram in November 2021 showed normal LV size and function with an EF measured at 66% and impaired diastolic relaxation Chronic anemia Urethral stricture Empyema of left pleural space (05/2021) Pleural fluid grew out strep intermedius and staph hominis. Status post thoracotomy with decortication. Benign prostatic hyperplasia Peripheral vascular disease Status post right carotid endarterectomy. Status post left lower extremity stent. AV block status post Medtronic pacemaker placement Psoriasis Eczema Gastroesophageal reflux disease COPD with emphysema Loculated empyema Obstructive sleep apnea Hypertension Arthritis Surgical History Surgical History (Updated 08/02/25 @ 05:51 by Judith Gan DO) History of cardiac catheterization (01/2024) severe single vessel coronary artery disease with chronic total occlusion of the proximal RCA with [id number] collaterals History of dilation of urethra History of thoracotomy (05/2021) Left thoracotomy with decortication for empyema. History of right-sided carotid endarterectomy History of tonsillectomy Status post peripheral artery angioplasty with insertion of stent Left lower extremity. Status post placement of cardiac pacemaker (06/2020) History of hip replacement Bilaterally with revision History of herniorrhaphy Family History Family History Father Heart disease Heart attack Hypertension Cerebrovascular accident Mother Diabetes mellitus Hypertension Asthma Heart disease Sibling Hypertension Social History Social History (Updated 08/02/25 @ 07:58 by Judith Gan DO) Social History: Patient is and lives alone. He ambulates with a cane. He has 3 daughters. He smoked 2 packs of cigarettes per day for 40 years but quit smoking in 2009. He denies any history of alcohol use or illicit substance use. 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 Surrogate medical decision maker: Michelle Schroeder, sister. Code status: Full code. Smoking packs per day: 2 Smoking cigarettes per day: 40.0 Years smoked: 40 Smoking pack-years: 80.00 Smoking status: Former smoker Tobacco type: cigarettes Second hand tobacco smoke exposure: Yes Smoking end date: 08/22/09 Alcohol intake: never Alcohol use details: rarely Substance use: never Substance use type: does not use Lack of Transportation: No Lack of Food: Never True Current Housing: I Have Housing Concerned About Future Housing: No Difficulty Paying Gas/Electric Bills: No Difficulty Paying for Meds: YES Currently Unemployed: No Education: Bachelor's Degree Difficulty w/ Childcare or Family Care: No Living arrangements: alone Additional living arrangements comments: . He has 3 children. 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 Spiritual care concerns: No Agree to blood products: Yes Course Vital Signs Vital signs: Vital Signs Temperature 97.8 F 08/01/25 14:40 Pulse Rate 86 08/01/25 14:40 Respiratory Rate 20 08/01/25 14:40 Blood Pressure 156/68 H 08/01/25 14:40 Pulse Oximetry 95 08/01/25 14:40 Oxygen Delivery Nasal Cannula 08/01/25 14:40 Oxygen Flow Rate 4 08/01/25 14:40 Temperature 96.9 F L 08/02/25 13:59 Pulse Rate 84 08/02/25 16:54 Respiratory Rate 20 08/02/25 16:54 Blood Pressure 108/50 L 08/02/25 13:59 Pulse Oximetry 93 08/02/25 14:01 Oxygen Delivery Nasal Cannula 08/02/25 08:05 Oxygen Flow Rate 4 08/02/25 08:05 [facility] Narrative Medical decision making narrative: 74-year-old male presenting with concerns for increased shortness of breath and UTI symptoms. Patient states he has been experiencing UTI symptoms for a couple weeks as well as diarrhea for the last month. He reports subjective fever/chills, fatigue anxiety and abdominal pain. Denies chest pain Or any changes from his baseline cough/ oxygen requirements. Reports a history of COPD and is on 4 L of oxygen at baseline and history of blood clots, on Eliquis. Upon my initial assessment patient appears nontoxic with stable vitals. Lab work remains unchanged compared to his baseline other than a UA demonstrating a mild UTI consistent with his present symptoms. Administered a DuoNeb which improved patient's dyspnea. He states that his screw machine hand Dr. Jasmine has him doing breathing treatments every 4 hours and he was due for his most recent one. 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 His urine was cultured by his family practitioner and the culture demonstrated resistance to all oral antibiotics. Plan to admit and start IV antibiotics. Discussed with Dr. Gan with hospitalist patient presentation and workup. Agrees with admission at this time. Recommended starting Cefepime, MRSA swabs, and performing a bladder scan. Patient is stable pending transfer upstairs. Differential Diagnosis Differential Diagnosis: Differential diagnostic considerations for shortness of breath include respiratory failure, pulmonary embolus, ACS, COPD, CHF, pneumonia, pneumothorax, asthma, metabolic disorder, anxiety. Medical Records I have reviewed the following patient records and this information was taken into consideration when formulating the assessment and plan.: previous labs, previous ER visits and previous hospitalizations Lab Data [facility] Lab Attestation statement: I personally reviewed the patient's lab results. 08/02/25 16:14 08/01/25 15:01 Labs: Lab Results 08/01/25 08/01/25 Range/Units 15:01 17:49 WBC 7.3 (4.5-10.0) K/mm3 RBC 3.69 L (4.6-6.20) M/mm3 Hgb 10.4 L (14.0-18.0) g/dL Hct 34.6 L (42.0-52.0) % MCV 93.8 (80-100) fl MCH 28.2 (26-34) pg MCHC 30.1 L (32-36) g/dl RDW 14.2 (11.5-14.5) % Plt Count 216 (150-375) k/mm3 MPV 9.3 (7.4-10.4) fl Immature Gran % (Auto) 0.3 (0-0.5) % Neut % (Auto) 79.9 H (45.5-73.1) % Lymph % (Auto) 10.0 L (18.3-44.2) % [place] % (Auto) 6.3 (2.6-8.5) % Eos % (Auto) 3.1 (0-4.4) % Baso % (Auto) 0.4 (0.2-1.2) % Lymph # (Auto) 0.73 L (0.9-3.2) K/mm3 [place] # (Auto) 0.5 (0.1-0.6) K/mm3 Eos # (Auto) 0.2 (0-0.3) K/mm3 Baso # (Auto) 0.0 (0.0-0.1) K/mm3 Abs Immat Gran (auto) 0.02 (0.00-0.031) K/mm3 Absolute Neuts (auto) 5.9 (1.3-6.7) K/mm3 Absolute Nucleated RBC 0.000 (0.0-0.012) K/mm3 Nucleated RBC % 0.0 (0.0-0.2) % Sodium 140 (137-145) mmol/L Potassium 4.5 (3.4-5.0) mmol/L Chloride 100 (98-107) mmol/L Carbon Dioxide 35 H (22-30) mmol/L Anion Gap 5 (4-12) mmol/L BUN 37 H D (9-20) mg/dL Creatinine 2.52 H (0.7-1.3) mg/dL Estim Creat Clear Calc 23 ml/min Estimated GFR 25 L (59 - ) Glucose 113 H (65-110) mg/dL Calcium 9.2 (8.4-10.2) mg/dL Total Bilirubin 0.5 (0.2-1.3) mg/dL AST 26 (17-59) U/L ALT 16 (6-50) U/L Alkaline Phosphatase 99 (38-126) U/L Total Protein 8.1 (6.3-8.2) g/dL Albumin 4.3 (3.5-5.1) g/dL Urine Color Yellow (Yellow) Urine Appearance Clear (Clear) Urine pH 7.0 (5.0-9.0) Ur Specific [place] 1.008 (1.001-1.035) Urine Protein Trace (Negative) mg/dL Urine Glucose (UA) Negative (Negative) mg/dL Urine Ketones Negative (Negative) mg/dL Ur Blood (Man) 2+ H (Negative) Urine Nitrate Negative (Negative) Urine Bilirubin Negative (Negative) Urine Urobilinogen 0.2 (<2.0) mg/dL Leukocyte Esterase Rfl 3+ H (Negative) ADELFO/UL Urine RBC 21-50 H (0-2) /hpf Urine WBC >100 H (0-3) /hpf Ur Squamous Epith Cells None seen (Few) /hpf Urine Bacteria None seen /hpf Urine Casts 0-2 Imaging Data Attestation: I personally reviewed and interpreted this imaging study as follows: Radiologist's impression: ITS Impressions Chest X-Ray 08/01/25 15:23 IMPRESSION: 1. No acute pulmonary findings. Severe emphysema of lungs with chronic pleural thickening of left costophrenic angle. Severe atherosclerotic aorta. Chest/Abdomen/Pelvis CT 08/01/25 18:13 IMPRESSION: 1. Severe emphysematous changes of lungs. Peribronchial thickening of left lung base with mild bronchiectasis as mentioned above. Findings are suggestive of bronchopneumonic changes in the left lower lobe. Stable noncalcified nodules of left lung. Continued follow-up by CT scan at 6 months is recommended. 2. Diffuse abdominal aortic aneurysm measuring 4 cm in diameter at L1-2 and 3.6 cm at L4-5 level. 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 3 severe calcific atherosclerotic disease of the iliac arteries on both sides right worse than the left. The evaluation of pelvis limited by artifacts from bilateral hip arthroplasty. ECG Data EKG #1: ECG completion date: 08/01/25 ECG completion time: 14:51 normal rate, sinus rhythm and no acute changes Pacemaker function: normal pacer function Discharge Plan Discharge Clinical Impression: Urinary tract infection, Chronic shortness of breath Patient Disposition: Still a Patient Condition: Guarded Prognosis
--- OUTSIDE RECORDS SUMMARY | 2025-08-01 19:36 | XMS_ITS | Clinical Summary ---
Author Organization [facility] [address] Address [address] [place] [address] Care Team Providers Care Payroll Tax Specialist Name Role Phone Daniela Hilario NP Unavailable [phone] Radha Jasmine MD Unavailable [phone] Ilir Stover DO Primary Care Provider [phone] Allergies Active Allergy Reactions Criticality Noted Date [...] mouth 2 (two) times a day Active Stiolto Respimat 2.5-2.5 mcg/actuation inhaler Inhale [...] mg by mouth nightly as needed Active cilostazoL (PLETAL) 50 mg tablet TAKE 1 TABLET BY MOUTH TWICE DAILY 200 tablet 2 03/11/20 25 Active atorvastatin (LIPITOR) 80 mg tablet TAKE 1 TABLET BY MOUTH EVERY NIGHT 100 tablet 2 03/11/[address] (PROTONIX) 40 mg EC tablet TAKE 1 TABLET BY MOUTH DAILY 100 tablet 2 03/11/20 25 Active clopidogreL (PLAVIX) 75 mg tablet TAKE 1 TABLET BY MOUTH DAILY 100 tablet 07/10/20 25 Active amLODIPine (NORVASC) 10 mg tablet TAKE 1 TABLET BY MOUTH DAILY AT NIGHT 100 tablet 07/10/20 25 Active amLODIPine (NORVASC) 10 mg tablet Take 1 tablet (10 mg total) by mouth nightly 90 tablet 3 06/04/20 24 025 Discontinued clopidogreL (PLAVIX) 75 mg tablet TAKE 1 TABLET BY MOUTH DAILY 100 tablet 2 10/25/19 25 025 Discontinued Active Problems Problem Noted Date Diagnosed Date 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 Dx; Second Degree AVB, Symptomatic Bradycardia. DOI 05/02/2019-Dr Zenia Good ([place]). Carelink remote. Assessment & Plan (06/11/2021 8:06 [...] Encounters Date Type Department Care Team Description 06/04/2025 Orders Only [facility] Cardiology [address], [place] [address] Josiah Lay MD Cardiac pacemaker in situ (Primary Dx); Symptomatic bradycardia; AVB (atrioventricular block) 05/21/2025 Telephone [facility] Medicine Infectious Diseases [address] [place] [address] [address] [place] [address] Willem Sortoara PACO from Last 3 Months Immunizations Immunization Administration [...] Anemia Arthritis COPD (chronic obstructive pulmonary disease) GERD (gastroesophageal reflux disease) Hypertension Covid-19 05/2020 hospitalization 3 days Empyema (HCC) 05/2020 AV block Jun 2020 PM inse rtion Claudication PAD (peripheral artery disease) stents in left leg CKD (chronic kidney disease) stage 3, GFR 30-59 ml/min ([facility]) Sleep apnea Asthma Carotid stenosis s/p right [...] CDT Gender Identity Male 08/12/2022 2:14 PM HEMMING AND TACKING MACHINE OPERATOR Sexual Orientation Not on file Last Filed Vital Signs Vital Sign Reading Time Taken Comments Blood Pressure 153/70 04/23/2025 10:45 AM CDT Pulse 94 04/23/2025 10:45 AM CDT Temperature 36.7 C (98.1 F) 04/23/2025 10:45 AM CDT Respiratory Rate 24 01/27/2024 8:49 AM CDT Oxygen Saturation 90% 04/23/2025 10:45 AM CDT Inhaled Oxygen Concentration - - Weight 72.6 kg (160 lb) 04/23/2025 10:45 AM CDT Height 172 cm (5' 7.72) 04/23/2025 10:45 AM CDT Body Mass Index 24.53 04/23/2025 10:45 AM CDT Plan of Treatment Health Maintenance Due Date Last Done Comments Colon Cancer Screening-Colonoscopy 1950 Depression Screening 1950 DTaP/Tdap/Td Vaccine (1 - Tdap) 1962 Hepatitis B Screening 1969 Zoster Vaccine (1 of 2) 2001 Pneumococcal vaccine 65+ (2 of 2 - PPSV23, PCV20, or PCV21) 06/17/2012 04/22/2012 Abdominal Aortic Aneurysm (A AA) Screen 2016 Well Visit 65+ 2016 Fall Risk Assessment 01/26/2025 01/27/2024 Covid-19 Vaccine (5 - 2024-2 6 season) 2025 08/12/2021, 11/26/2020, 11/14/2020, Additional history exists Influenza Vaccine (#1) 2025 05/04/2021, 2020 Hepatitis C Screening Completed 09/18/2024 Medical Devices Implanted Type Area Embryology Professor Device Identifier Shelf Expiration Date Model / Serial / Lot Pacemaker Pacemaker Chest Procedures Procedure Name Priority Date/Time Associated Diagnosis Comments MYCOBACTERIOLOGY AFB CULTURE AND ACID-FAST STAIN Routine 07/25/2025 10:52 AM HEMMING AND TACKING MACHINE OPERATOR Pulmonary Mycobacterium kansasii infection (HCC) MYCOBACTERIOLOGY AFB CULTURE AND ACID-FAST STAIN Routine 07/08/2025 12:55 PM HEMMING AND TACKING MACHINE OPERATOR Pulmonary Mycobacterium kansasii infection (HCC) HEPATITIS C ANTIBODY Routine 09/18/2024 11:41 AM HEMMING AND TACKING MACHINE OPERATOR Other specified respiratory disorders from Last 3 Months or Most Recently Relevant to Health Maintenance Results * Hepatitis C antibody Blood (09/18/2024 11:41 AM HEMMING AND TACKING MACHINE OPERATOR) Hep C Ab Nonreactive Nonreactive Comment:Antibodies to HCV no t detected. Does NOT exclude the possibility of recent exposure to HCV. Current interpretive data was last revised on 22 Blood 09/18/2024 11:4 1 AM HEMMING AND TACKING MACHINE OPERATOR 09/18/2024 3:56 PM HEMMING AND TACKING MACHINE OPERATOR us Vicki Hahn NP LAB MICROBIOLOGY - GENERA L ORDERABLES Final Result [facility] Department [place] [address] from Last 3 Months or Most Recently Relevant to Health Maintenance Insurance UHC MEDICARE ADVANTAGE [facility] MEDICARE ADVANTAGE [facility] CHOICE PLUS MEDICARE [facility] MEDICARE ADVANTAGE Advance Directives For more information, please contact: [phone] * Full Code (Latest Code Status on File) Date Activated Date Inactivated Comments 06/12/2021 8:06 PM 06/23/2021 5:12 PM * Full Code Date Activated Date Inactivated Comments 06/10/2021 9:01 PM 06/12/2021 8:06 PM Care Teams Payroll Tax Specialist Relationship Specialty Start Date End Date Ilir Stover DO [address] [place] [address] PCP - General Internal Medicine 04/23/25 Daniela Hilario NP Nurse Practitioner Nurse Practitioner 03/26/22 Radha Jasmine MD [address] [place] [address] Consulting Physician Pulmonary Disease 04/23/25
--- OUTSIDE RECORDS SUMMARY | 2025-08-01 19:36 | XMS_ITS | Clinical Summary ---
Author Organization [facility] Address [address] [place] [address] Phone Care Team Providers Care Escort Service Attendant Name Role Phone Ranulfo Romo Primary Care Provider [phone] Allergies Active Allergy Reactions Criticality Noted Date [...] - PCV) 2001 COVID-19 Vaccine ( season) 2025 08/12/2021, 11/26/2020, 10/22/2020 Influenza Vaccine (#1) 2025 04/24/2021 Insurance [employer] MEDICARE Care Teams Escort Service Attendant Relationship Specialty Start Date End Date Ranulfo Romo DO PCP - General Family Medicine 12/30/21
--- OUTSIDE RECORDS SUMMARY | 2025-08-01 19:37 | XMS_ITS | Patient Health Record ---
Author Organization [facility] Address [address] [place] [address] Care Team Providers Care Nail Sticker Name Role Phone Ari Bailey Unavailable [phone] Reason For Referral No Information Immunizations Vaccine Route Administration Date Status Comme nts PuneetVIMoriah - Pfizer IM Intramuscular 10/22/2020 Administered Plan Of Treatment No Information Insurance Providers Payer Name Payer Address Payer Phone Subscriber Number Group Number Insured Name Patient Relationship to Insured Coverage Start Date Coverage End Date [facility] ( [facility] ) [address] [address] [place], [place] [id number] Freddy Hill Self - patient is the insured
--- OUTSIDE RECORDS SUMMARY | 2025-08-01 19:37 | XMS_ITS | Encounter Summary ---
Author Organization [facility] Address [address] [place] [address] Phone Care Team Providers Care Laborer Wrecking And Salvaging Name Role Phone Daniela Hilario NP Unavailable [phone] Ranulfo Romo DO Primary Care Provider Radha Jasmine MD Unavailable [phone] Ilir Stover DO Primary Care Provider [phone] Encounter Details Date Type Department Care Team (Late st Contact Info) Description 03/07/2024 Orders Only [facility] Scanning, Provider Social History Tobacco [...] CDT Gender Identity Male 08/12/2022 2:14 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 Sexual Orientation Not on file documented as of this encounter Plan of Treatment Not on file documented as of this encounter Procedures Procedure Name Priority Date/Time Associated Diagnosis Comments SCAN - LABS 03/07/2024 documented in this encounter Results * SCAN - LABS (03/07/2024) us Provider Scanning Final Result documented in this encounter Visit Diagnoses Not on filedocumented in this encounter Care Teams Laborer Wrecking And Salvaging Relationship Specialty Start Date End Date Ranulfo Romo DO PCP - General Family Medicine 04/08/22 04/22/25 Ilir Stover DO [address] [place] [address] PCP - General Internal Medicine 04/23/25 Daniela Hilario NP Nurse Practitioner Nurse Practitioner 03/26/22 Radha Jasmine MD [address] [address] Consulting Physician Pulmonary Disease 04/23/25 documented as of this encounter
--- OUTSIDE RECORDS SUMMARY | 2025-08-01 19:37 | XMS_ITS | Encounter Summary ---
Author Organization [facility] Address [address] [place] [address] Phone Care Team Providers Care Economic Analyst Name Role Phone Daniela Hilario NP Unavailable [phone] Ranuflo Romo DO Primary Care Provider [phone] Radha Jasmine MD Unavailable [phone] Ilir Stover DO Primary Care Provider [phone] Encounter Details Date Type Department Care Team (Late st Contact Info) Description 02/17/2024 Orders Only [facility] Scanning, Provider [...] CDT Gender Identity Male 08/12/2022 2:14 PM HVAC 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 Sexual Orientation Not on file documented as of this encounter Plan of Treatment Not on file documented as of this encounter Procedures Procedure Name Priority Date/Time Associated Diagnosis Comments SCAN - LABS 02/17/2024 documented in this encounter Results * SCAN - LABS (02/17/2024) us Provider Scanning Final Result documented in this encounter Visit Diagnoses Not on filedocumented in this encounter Care Teams Economic Analyst Relationship Specialty Start Date End Date Ranulfo Romo DO PCP - General Family Medicine 04/08/22 04/22/25 Ilir Stover DO [address] [place] [address] PCP - General Internal Medicine 04/23/25 Daniela Hilario NP Nurse Practitioner Nurse Practitioner 03/26/22 Radha Jasmine MD [address] [address] Consulting Physician Pulmonary Disease 04/23/25 documented as of this encounter
--- OUTSIDE RECORDS SUMMARY | 2025-08-01 19:37 | XMS_ITS | Encounter Summary ---
Author Organization [facility] Address [address] [place] [address] Phone Care Team Providers Care Director Immunology Name Role Phone Daniela Hilario NP Unavailable [phone] Ranulfo Romo DO Primary Care Provider [phone] Radha Jasmine MD Unavailable [phone] Ilir Stover DO Primary Care Provider [phone] Encounter Details Date Type Department Care Team [...] CDT Gender Identity Male 08/12/2022 2:14 PM RENAL SOCIAL WORKER Sexual Orientation Not on file documented [...] filedocumented in this encounter Care Teams Director Immunology Relationship Specialty Start Date End Date Ranulfo Romo DO PCP - General Family Medicine 04/08/22 04/22/25 Ilir Stover DO [address] [email or web address] [address] [place] [address] PCP - General Internal Medicine 04/23/25 Daniela Hilario NP Nurse Practitioner Nurse Practitioner 03/26/22 Radha Jasmine MD [address] [id number] Consulting Physician Pulmonary Disease 04/23/25 documented as of this encounter
--- OUTSIDE RECORDS SUMMARY | 2025-08-01 19:37 | XMS_ITS | Encounter Summary ---
Author Organization [facility] Address [facility] [place] [address] Care Team Providers Care Crop Duster Helper Name Role Phone Ranulfo Romo DO Primary Care Provider [phone] Josiah Lya MD Unavailable Daniela Hilario [facility] Unavailable + [phone] Encounter Details Date Type Department Care Team (Late st Contact Info) Description 04/05/2022 A & A Custom [employer] [facility] Patient Accounts [address] [place] [address] [facility] Provider Auto Pay Payment Plan Social History Tobacco Use Types Packs/Day Years Used Date Smoking Tobacco: Former Cigarettes 2 40 1 970 - 2009 Smokeless Tobacco: Never Alcohol Use Standard Drinks/Week Comments Not Currently 0 (1 standard drink = 0.6 oz pur e alcohol) Sex and Gender Information Value Date Recorded Sex Assigned at Not on file Legal Sex Male 3:43 PM BRICKMASON SUPERVISOR Gender Identity Male 10/27/2021 1:50 PM BRICKMASON SUPERVISOR Sexual Orientation Straight 10/27/2021 1: 50 PM BRICKMASON SUPERVISOR documented as of this encounter Plan of Treatment Not on file documented as of this encounter Visit Diagnoses Not on filedocumented in this encounter Care Teams Crop Duster Helper Relationship Specialty Start Date End Date Ranulfo Romo DO [address] [facility] [address] [place] [address] [place] [address] PCP - General FAMILY PRACTICE 03/30/22 Josiah Lay MD [address] [place] [address] CARDIOVASCULAR DISEASE 03/30/22 Daniela Hilario, A R COLLECTIONS REP- [facility] [place] [address] [place] [address] Nurse Practitioner Family 03/30/22 documented as of this encounter
--- OUTSIDE RECORDS SUMMARY | 2025-08-01 19:37 | XMS_ITS | Clinical Summary ---
Author Organization [facility] Address [address] [place] [address] Care Team Providers Care Audience Development Manager Name Role Phone Ranulfo Romo Primary Care Provider [phone] Josiah Lay MD Unavailable Daniela Hilario [facility]- Unavailable [phone]- [phone] Allergies No known active allergies Medications Multiple [...] problems Immunizations Immunization Administration Dates Next Due [place] COVID-19 (ORIGINAL FO RMULATION, PURPLE CAP) mRNA, [...] on file Legal Sex Male 3:43 PM CSO Gender Identity Male 10/27/2021 1:50 PM CSO Sexual Orientation Straight 10/27/2021 1: 50 PM CSO Last Filed Vital Signs Vital Sign Reading [...] Vaccines (1 of 2) 2001 COVID-19 Vaccine (5 - season) 2025 02/26/2022, 08/12/2021, 11/26/2020, Additional history exists Influenza Adult (#1) 2025 04/24/2021 RSV Immunization or 60+ Years (1 - 1-dose 75+ series) 2026 Hepatitis A Vaccines Aged Out No long er eligible based on patient's age to complete this topic Meningococcal B Vaccine Aged Out No l onger eligible based on patient's age to complete this topic Meningococcal Vaccine Aged Out No steve marce eligible based on patient's age to complete this topic RSV Immunizations Under 20 Months Aged Out No longer eligible based on patient's age to complete this topic Insurance [facility] Advance Directives Documents on File Type Date Recorded Patient Research Psychologist Expl anation Power of Volunteer Services Specialist 11/10/2021 POA for [facility] Care Care Teams Audience Development Manager Relationship Specialty Start Date End Date Ranulfo Romo DO [address] [facility] [address] [place] [address] PCP - General FAMILY PRACTICE 03/30/22 Josiah Lay MD [address] [place], [place] [id number] CARDIOVASCULAR DISEASE 03/30/22 Daniela Hilario, [facility]- [facility] [address] [place] [address] Nurse Practitioner Family 03/30/22
[2025-08-01] MEDS: CEFEPIME 1 GM in SODIUM CHLORIDE 0.9% IV 50 ML 100 ML IVPB (21:17)
[2025-08-01 21:55] LABS: MRSA (PCR) NOT DETECTED (NOT DETECTE)
--- NOTE | 2025-08-01 22:36 | WPCEDHO ---
ED Hand Off Checklist All vitals saved: yes IV Site documented: yes All med administrations documented: yes Triage Note Triage Note Patient to the ED with complaints 08/01/25 17:00 of SOB and UTI. Provider advised patient to come to the ED for evaluation and R/O urosepsis. Patient has not been taking antibiotic for UTI. Provider told patient they have not identified what is causing the infection. Patient does complain of burning and pressure with urination. patient states he has had diarrhea for over a month. AGREE; PATIENT BIGGEST COMPLAINT UTI SXS Allergies oxycodone Adverse Reaction (Severe, Verified 08/01/25 14:36) severe constipation doxycycline Adverse Reaction (Unknown, Verified 08/01/25 14:36) Nausea and Vomiting Family History (Last Reviewed 05/07/25 @ 13:21 by Ramona Greene [facility]) Father Heart disease Heart attack Hypertension Cerebrovascular accident Mother Diabetes mellitus Hypertension Asthma Heart disease Sibling Hypertension Active Medications including assessments/comments Albuterol/Ipratropium (Ipratropium 0.5 Mg/Albuterol Sulfate 2.5 Mg (Base) Ampul.Neb 3 Ml) 3 ml INHALATION Q4HRT [facility] Last Admin: 08/01/25 20:58 Dose: 3 ml Documented By: [facility] Nebulizer Assessment Document 08/01/25 20:58 [facility] (Rec: 08/01/25 20:58 [facility] [id number]) Updraft Nebulizer Treatment Method Mask Administered/Completed Medications Discontinued Medications Albuterol/Ipratropium (Ipratropium 0.5 Mg/Albuterol Sulfate 2.5 Mg (Base) Ampul.Neb 3 Ml) 3 ml INHALATION ONCE STA Stop: 08/01/25 17:37 Last Admin: 08/01/25 18:14 Dose: 3 ml Documented By: KARON Cefepime HCl 1 gm/ Sodium (Chloride) 50 mls @ 100 mls/hr IVPB ONCE STA Stop: 08/01/25 20:27 Last Infusion: 08/01/25 21:47 Dose: Infused Documented By: Admin: 08/01/25 21:17 Dose: 100 mls/hr Documented By: JOAQUÍN Interventions/Assessments IV / Saline Lock, Insert Start: 08/01/25 14:44 Freq: STAT Status: Active Protocol: Document 08/01/25 17:20 [facility]HP (Rec: 08/01/25 17:53 [facility] [id number]) IV Assessment Peripheral Access Right Antecubital IV Catheter Access Initiated IV Insertion Date 08/01/25 IV Insertion Time 17:20 Catheter Gauge 20 PA: Cardiovascular Assessment Start: 08/01/25 14:35 Freq: Status: Complete Protocol: Document 08/01/25 17:00 BHP (Rec: 08/01/25 17:27 [facility] [id number]) Cardiovascular Assessment Cardiovascular Dyspnea Symptoms Additional patient currently pain free; stated that he has more Cardiovascular respiratory issues. Assessment Comments PA: Respiratory Assessment Start: 08/01/25 14:35 Freq: Status: Complete Protocol: Document 08/01/25 17:00 [facility]HP (Rec: 08/01/25 17:27 [facility] [id number]) Respiratory Assessment Symptoms Shortness of Breath at Rest,Shortness of Breath With Exertion Additional speaks in full and complete sent Respiratory Comments Oxygen Delivery Oxygen Delivery Nasal Cannula Oxygen Flow Rate 3 Pulse Oximetry (90- 100 100) Last Vital Signs Temperature 97.8 F 08/01/25 14:40 Pulse Rate 75 08/01/25 22:35 Respiratory Rate 22 H 08/01/25 22:35 Pulse Oximetry 100 08/01/25 22:35 Blood Pressure 180/98 H 08/01/25 22:35 Blood Pressure Mean 125 08/01/25 22:35 Blood Pressure Position Sitting 08/01/25 22:35 Oxygen Delivery Nasal Cannula 08/01/25 17:00 Oxygen Flow Rate 3 08/01/25 17:00 Weight 66.8 kg 08/01/25 17:00 Last Result - Abnormals Only RBC 3.69 M/mm3 (4.6-6.20) L 08/01/25 15:01 Hgb 10.4 g/dL (14.0-18.0) L 08/01/25 15:01 Hct 34.6 % (42.0-52.0) L 08/01/25 15:01 MCHC 30.1 g/dl (32-36) L 08/01/25 15:01 Neut % (Auto) 79.9 % (45.5-73.1) H 08/01/25 15:01 Lymph % (Auto) 10.0 % (18.3-44.2) L 08/01/25 15:01 Lymph # (Auto) 0.73 K/mm3 (0.9-3.2) L 08/01/25 15:01 Carbon Dioxide 35 mmol/L (22-30) H 08/01/25 15:01 BUN 37 mg/dL (9-20) H D 08/01/25 15:01 Creatinine 2.52 mg/dL (0.7-1.3) H 08/01/25 15:01 Estimated GFR 25 (59-) L 08/01/25 15:01 Glucose 113 mg/dL (65-110) H 08/01/25 15:01 Lactic Acid 0.6 mmol/L (0.7-2.0) L 08/01/25 20:17 Ur Blood (Man) 2+ (Negative) H 08/01/25 17:49 Leukocyte Esterase Rfl 3+ ADELFO/UL (Negative) H 08/01/25 17:49 Urine RBC 21-50 /hpf (0-2) H 08/01/25 17:49 Urine WBC >100 /hpf (0-3) H 08/01/25 17:49 Most Recent Suicide Severity Rating Suicide Severity Rating NO RISK INDICATED 08/01/25 17:00
--- NOTE | 2025-08-01 22:40 | PM.IMHP2 ---
H&P: HPI History of Present Illness Date/Time: 08/01/25 22:40 Chief Complaint: Positive urine culture Narrative: 74-year-old male with a past medical history of BPH, COPD on chronic home O2 of 4 L, CHF, essential hypertension chronic kidney disease and obstructive sleep apnea among other comorbidities who presented to the ER due to positive urine culture. 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 He got a call from the office telling him that his urine culture was positive and he needed to go to the ER. His culture grew out [phone] colonies of pseudomonal aeruginosa resistant to Cipro and Levaquin. He reports that for the last week he has been having increased urinary frequency and urgency with associated dysuria. He states that he often feels chilled but is been having more episodes of chills that her more severe over the last several days. He has a sensation of fullness and discomfort in his suprapubic region. He does have a history of prior episodes of urinary retention with need for prior London catheters. He states that he did have trauma from a prior London catheter and required intervention from Urology. He states that he has been told he needs prostate surgery in the past but they have held off on doing the prostate surgery due to his severe lung disease. He is on Flomax at home. He did not have finasteride initially listed on his home med rec. But when I went and reviewed the external medication history he has been on finasteride for quite some time and it was last filled in April for a 90 day supply. At the time of my evaluation the patient stated that he needed to urinate. He was able to void about 200 mL. I had nursing staff check postvoid residual in patient still had about 450 and retained urine. He denies any nausea or vomiting. He has been having mushy and loose stools for the last several weeks. He did start taking Imodium about for 5 days ago and the frequency of his stools has decreased. He states that he was on antibiotics for his lungs that looks like amoxicillin back in May. He denies any chest pain. He has had some mild increase in his sputum production. He has been stable on his home 4 L of oxygen. He thinks that his cough may be slightly worse than usual. He states that is not unusual for him to get frequent infections in his lungs in the winter. His sputum is been in his usual white color with occasional yellow tinge. Review of Systems Review of Systems: 12 systems were reviewed with pertinent positives and negatives per HPI. Except as documented in the HPI, all other systems were reviewed and are negative. 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) Coronary artery disease severe single vessel coronary artery disease with chronic total occlusion of the proximal RCA with [id number]-[id number] collaterals Chronic kidney disease, stage 4 (severe) Chronic respiratory failure with hypoxia, on home oxygen therapy 4 L nasal cannula Pseudomonas respiratory infection Femoral artery stenosis, left Heart failure with preserved ejection fraction echocardiogram in November 2021 showed normal LV size and function with an EF measured at 66% and impaired diastolic relaxation Chronic anemia Urethral stricture Empyema of left pleural space (05/2021) Pleural fluid grew out strep intermedius and staph hominis. Status post thoracotomy with decortication. Benign prostatic hyperplasia Peripheral vascular disease Status post right carotid endarterectomy. Status post left lower extremity stent. AV block status post Medtronic pacemaker placement Psoriasis Eczema Gastroesophageal reflux disease COPD with emphysema Loculated empyema Obstructive sleep apnea Hypertension Arthritis Surgical History Surgical History (Updated 08/02/25 @ 05:51 by Judith Gan DO) History of cardiac catheterization (01/2024) severe single vessel coronary artery disease with chronic total occlusion of the proximal RCA with zens-[id number] collaterals History of dilation of urethra History of thoracotomy (05/2021) Left thoracotomy with decortication for empyema. History of right-sided carotid endarterectomy History of tonsillectomy Status post peripheral artery angioplasty with insertion of stent Left lower extremity. Status post placement of cardiac pacemaker (06/2020) History of hip replacement Bilaterally with revision History of herniorrhaphy Family History Family History Father Heart disease Heart attack Hypertension Cerebrovascular accident Mother Diabetes mellitus Hypertension Asthma Heart disease Sibling Hypertension Social History Social History (Updated 08/02/25 @ 07:58 by Judith J. Hopen, DO) Social History: Patient is and lives alone. He ambulates with a cane. He has 3 daughters. He smoked 2 packs of cigarettes per day for 40 years but quit smoking in 2009. He denies any history of alcohol use or illicit substance use. 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 Surrogate medical decision maker: Michelle Schroeder, sister. Code status: Full code. Smoking packs per day: 2 Smoking cigarettes per day: 40.0 Years smoked: 40 Smoking pack-years: 80.00 Smoking status: Former smoker Tobacco type: cigarettes Second hand tobacco smoke exposure: Yes Smoking end date: 08/22/09 Alcohol intake: never Alcohol use details: rarely Substance use: never Substance use type: does not use Lack of Transportation: No Lack of Food: Never True Current Housing: I Have Housing Concerned About Future Housing: No Difficulty Paying Gas/Electric Bills: No Difficulty Paying for Meds: YES Currently Unemployed: No Education: Bachelor's Degree Difficulty w/ Childcare or Family Care: No Living arrangements: alone Additional living arrangements comments: . He has 3 children. 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 Spiritual care concerns: No Agree to blood products: Yes Meds Home Medications and Allergies Home Medications ?Medication ?Instructions ?Recorded ?Confirmed ?Type acetaminophen 500 mg tablet 1,000 mg PO Q6H PRN Mild Pain 06/02/21 08/02/25 History (Scale Score 1-4) dupilumab 300 mg/2 mL subcutaneous 300 mg (2 mL) subcut .COMPLEX #4 mL 11/25/22 08/02/25 Rx syringe (Dupixent) tamsulosin 0.4 mg capsule 0.8 mg PO HS 01/24/23 08/02/25 History albuterol sulfate 90 mcg/actuation 2 puff inhalation Q6H PRN 09/04/24 08/02/25 History aerosol inhaler shortness of breath or wheezing cetirizine 10 mg capsule (Zyrtec) 10 mg PO HS PRN allergy symptoms 09/04/24 08/02/25 History multivitamin-ferrous 1 tablet PO DAILY 09/04/24 08/02/25 History fumarate-folic acid 18 mg-400 mcg tablet (Centrum) tiotropium 2.5 mcg-olodaterol 2.5 See Rx Instructions .Route 12/06/24 08/02/25 Rx mcg/actuation mist for inhalation .COMPLEX #12 grams (Stiolto Respimat) atorvastatin 80 mg tablet (Lipitor) 80 mg PO DAILY 01/29/25 08/02/25 History cilostazol 50 mg tablet 50 mg PO BID 01/29/25 08/02/25 History furosemide 40 mg tablet 40 mg PO QAM 01/29/25 08/02/25 History gabapentin 300 mg capsule 300 mg PO DAILY PRN neuropathy 01/29/25 08/02/25 History tramadol 50 mg tablet 50 mg PO Q6H PRN pain 01/29/25 08/02/25 History triamcinolone acetonide 0.1 % 1 applic topical BID PRN itching 01/29/25 08/02/25 History topical cream amlodipine 5 mg tablet 10 mg PO DAILY 04/30/25 08/02/25 History guaifenesin 600 mg tablet, 600 mg PO BID 04/30/25 08/02/25 History extended release 12 hr (Mucinex) polyethylene glycol 3350 17 gram 17 g PO DAILY PRN constipation 04/30/25 08/02/25 History oral powder packet potassium chloride 10 mEq 10 meq PO DAILY #100 caps 06/07/25 08/02/25 Rx capsule,extended release albuterol sulfate 2.5 mg/3 mL 2.5 mg (3 mL) inhalation Q4-6H PRN 07/10/25 08/02/25 Rx (0.083 %) solution for nebulization SOB #1,260 mL losartan 50 mg tablet 50 mg PO DAILY #90 tabs 07/23/25 08/02/25 Rx roflumilast 500 mcg tablet 500 mcg PO DAILY COPD 1 month #30 07/29/25 08/02/25 Rx tabs carvedilol 25 mg tablet (Coreg) 25 mg PO Q12H 08/02/25 08/02/25 History finasteride 5 mg tablet 5 mg PO DAILY 08/02/25 08/02/25 History Allergies Allergy/AdvReac Type Severity Reaction Status Date / Time doxepin Allergy Intermediate Dizziness Verified 08/02/25 04:47 oxycodone AdvReac Severe severe Verified 08/02/25 04:47 constipation Vital Signs Vital Signs - 24 hr 08/01/25 14:40 08/01/25 17:00 08/01/25 17:02 Temperature 97.8 F Pulse Rate 86 79 Respiratory Rate 20 15 Blood Pressure 156/68 H 175/92 H Pulse Oximetry 95 100 100 Oxygen Delivery Nasal Cannula Nasal Cannula Oxygen Flow Rate 4 3 08/01/25 17:46 08/01/25 17:47 08/01/25 18:14 Temperature Pulse Rate 82 84 86 Respiratory Rate 24 H 20 24 H Blood Pressure 180/78 H Pulse Oximetry 100 100 Oxygen Delivery Oxygen Flow Rate 08/01/25 18:20 08/01/25 18:31 08/01/25 19:34 Temperature Pulse Rate 80 78 90 Respiratory Rate 20 26 H 21 H Blood Pressure 175/71 H Pulse Oximetry 100 Oxygen Delivery Oxygen Flow Rate 08/01/25 20:04 08/01/25 21:00 08/01/25 21:05 Temperature Pulse Rate 79 88 92 Respiratory Rate 23 H 20 20 Blood Pressure Pulse Oximetry 100 Oxygen Delivery Oxygen Flow Rate 08/01/25 22:35 Temperature Pulse Rate 75 Respiratory Rate 22 H Blood Pressure 180/98 H Pulse Oximetry 100 Oxygen Delivery Oxygen Flow Rate Exam Narrative: Weight 65.3 kg BMI 21.9 Const: Other: Thin body habitus, no acute distress, appears stated age HENMT: Other: Mucous membranes are moist, no oral pharyngeal erythema, head is normocephalic atraumatic, nasal cannula in place Eyes: Other: Pupils are equal and reactive, no scleral icterus Neck: Other: No JVD, no lymphadenopathy Resp: Other: Coarse crackles at the a left lower lung base, no increased work of breathing GI: Other: Regular rate, regular rhythm, 2+ bilateral radial and pedal pulses : Other: Suprapubic fullness and discomfort with palpation, postvoid residual greater than 400 Skin: Other: No jaundice, positive pallor Neuro: Other: Alert oriented x4, speech is clear, no facial asymmetry, no localizing neurologic deficits noted during the course of conversation patient is able to stand unassisted Extrem: Other: No cyanosis, no edema, 5/5 piling cutter strength bilaterally, patient is able to stand unassisted Psych: Other: Appropriate mood and affect, pleasant and cooperative, judgment and insight intact Results Labs Labs: Laboratory Tests 08/01/25 15:01 08/01/25 15:01 08/01/25 08/01/25 08/01/25 15:01 17:49 20:17 WBC 7.3 RBC 3.69 L Hgb 10.4 L Hct 34.6 L MCV 93.8 MCH 28.2 MCHC 30.1 L RDW 14.2 Plt Count 216 MPV 9.3 Immature Gran % (Auto) 0.3 Neut % (Auto) 79.9 H Lymph % (Auto) 10.0 L Gage % (Auto) 6.3 Eos % (Auto) 3.1 Baso % (Auto) 0.4 Lymph # (Auto) 0.73 L Gage # (Auto) 0.5 Eos # (Auto) 0.2 Baso # (Auto) 0.0 Abs Immat Gran (auto) 0.02 Absolute Neuts (auto) 5.9 Absolute Nucleated RBC 0.000 Nucleated RBC % 0.0 Sodium 140 Potassium 4.5 Chloride 100 Carbon Dioxide 35 H Anion Gap 5 BUN 37 H D Creatinine 2.52 H Estim Creat Clear Calc 23 Estimated GFR 25 L Glucose 113 H Lactic Acid 0.6 L Calcium 9.2 Total Bilirubin 0.5 AST 26 ALT 16 Alkaline Phosphatase 99 Total Protein 8.1 Albumin 4.3 Urine Color Yellow Urine Appearance Clear Urine pH 7.0 Ur Specific [employer] [place] 1.008 Urine Protein Trace Urine Glucose (UA) Negative Urine Ketones Negative Ur Blood (Man) 2+ H Urine Nitrate Negative Urine Bilirubin Negative Urine Urobilinogen 0.2 Leukocyte Esterase Rfl 3+ H Urine RBC 21-50 H Urine WBC >100 H Ur Squamous Epith Cells None seen Urine Bacteria None seen Urine Casts 0-2 Nasal MRSA (PCR) 08/01/25 20:38 WBC RBC Hgb Hct MCV MCH MCHC RDW Plt Count MPV Immature Gran % (Auto) Neut % (Auto) Lymph % (Auto) Gage % (Auto) Eos % (Auto) Baso % (Auto) Lymph # (Auto) Gage # (Auto) Eos # (Auto) Baso # (Auto) Abs Immat Gran (auto) Absolute Neuts (auto) Absolute Nucleated RBC Nucleated RBC % Sodium Potassium Chloride Carbon Dioxide Anion Gap BUN Creatinine Estim Creat Clear Calc Estimated GFR Glucose Lactic Acid Calcium Total Bilirubin AST ALT Alkaline Phosphatase Total Protein Albumin Urine Color Urine Appearance Urine pH Ur Specific [employer] [place] Urine Protein Urine Glucose (UA) Urine Ketones Ur Blood (Man) Urine Nitrate Urine Bilirubin Urine Urobilinogen Leukocyte Esterase Rfl Urine RBC Urine WBC Ur Squamous Epith Cells Urine Bacteria Urine Casts Nasal MRSA (PCR) Not detected Impressions Chest X-Ray 08/01/25 15:23 IMPRESSION: 1. No acute pulmonary findings. Severe emphysema of lungs with chronic pleural thickening of left costophrenic angle. Severe atherosclerotic aorta. Chest/Abdomen/Pelvis CT 08/01/25 18:13 IMPRESSION: 1. Severe emphysematous changes of lungs. Peribronchial thickening of left lung base with mild bronchiectasis as mentioned above. Findings are suggestive of bronchopneumonic changes in the left lower lobe. Stable noncalcified nodules of left lung. Continued follow-up by CT scan at 6 months is recommended. 2. Diffuse abdominal aortic aneurysm measuring 4 cm in diameter at L1-2 and 3.6 cm at L4-5 level. 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 3 severe calcific atherosclerotic disease of the iliac arteries on both sides right worse than the left. The evaluation of pelvis limited by artifacts from bilateral hip arthroplasty. Quality VTE Prophylaxis VTE prophylaxis: pharmacologic ordered (Heparin 5000 units subQ q.12 hours) Assessment and Plan Assessment and plan (1) Urinary tract infection due to Pseudomonas aeruginosa: Code(s): N39.0 - Urinary tract infection, site not specified; B96.5 - Pseudomonas (aeruginosa) (mallei) (pseudomallei) as the cause of diseases classified elsewhere Status: Acute (2) Urinary retention with incomplete bladder emptying: Code(s): R33.9 - Retention of urine, unspecified Status: Acute (3) Bronchiectasis: Qualifiers: Bronchiectasis type: uncomplicated Qualified Code(s): J47.9 - Bronchiectasis, uncomplicated Code(s): J47.9 - Bronchiectasis, uncomplicated Status: Acute (4) Chronic respiratory failure with hypoxia, on home oxygen therapy: Code(s): J96.11 - Chronic respiratory failure with hypoxia; Z99.81 - Dependence on supplemental oxygen Status: Acute (5) Chronic kidney disease, stage IV (severe): Code(s): N18.4 - Chronic kidney disease, stage 4 (severe) Status: Chronic Plan Patient has Pseudomonas aeruginosa UTI that is resistant to all oral antibiotics. Will place order for midline catheter placement for anticipated need for outpatient IV antibiotics. Patient been started on cefepime. Blood cultures have been obtained and are pending. The patient does have history of BPH and history of prior episodes of urinary retention. Postvoid residual today demonstrated greater than 400 mL of retained urine. On review patient's home med rec and external medication documented. The patient is post be on Flomax and Proscar. Will resume these medications. Will place London catheter. The patient usually follows with a urologist in all min. Will repeat CBC in a.m.. Patient does have chronic kidney disease stage IV thankfully his creatinine is stable despite evidence of urinary retention. Will repeat electrolyte panel and monitor strict I&O's. Will avoid nephrotoxic medications. Patient does have chronic COPD with chronic hypoxic respiratory failure in bronchiectasis. CT did demonstrate small area of bronchopneumonia changes of the left lower lobe. The patient does have history of Mycobacterium avium complex. He has had some increased cough and a slight increase in sputum production with an abundance of caution will start patient on doxycycline in addition to the cefepime. Will continue scheduled nebulizer treatments q.4 hours as this is what patient usually does at home. MEDICAL DECISION MAKING NARRATIVE -Spoke with the ED provider in detail regarding patient's evaluation, workup and management -Patient seen and examined at bedside -Collaborated with patient's nurse at the bedside in detail and addressed all concerns -Labs, electrolytes, radiology, investigations and test results personally reviewed and interpreted unless otherwise specified -ED/Consult/Nursing/Ancilliary notes on the chart reviewed and appreciated -applicable past medical records and labs were reviewed and unless stated otherwise. -Spoke with patient at bedside and diagnosis, plan of care was discussed and questions answered. Hospitalist [facility] Advance Care Plan I have confirmed that the patient's Advanced Care Plan is present, code status is documented, or surrogate decision maker is listed in patient medical record.: Yes Medication Reconciliation I have utilized all available resources to obtain, update and review the patients current medications (includes all prescriptions, OTC, herbals, cannabis, and nutritional supplements).: Yes
[2025-08-02] VITALS (26 sets, daily range): BP systolic 108–171; BP diastolic 50–72; PULSE 67–97; RESP 17–24; TEMP 36.1–36.5; O2SAT 90–99; BMI 21.9
--- NOTE | 2025-08-02 00:02 | ADMGEN ---
This patient, Freddy Hill, was admitted to 2 Medical Room 256-. Patient/family oriented to hospital policies and general routines including ID bracelet, bed and alarms, visiting hours, pain management, procedures, bathroom and other care routines, personal items, smoking policy, room service/diet, and visiting hours. Information on how to activate the Rapid Response Team has been discussed. Patient/Family are encouraged to report perceived risks to care and to ask questions if they do not understand what they are told or what they should do.
[2025-08-02] MEDS: IPRATROPIUM 0.5 MG/ALBUTEROL SULFATE 2.5 MG (BASE) AMPUL.NEB 3 ML INHALATION ×7 (00:18→23:13)
[2025-08-02] MEDS: DOXYCYCLINE IV 100 MG in SODIUM CHLORIDE 0.9% IV 100 ML IVPB ×2 (05:15→16:07)
[2025-08-02] MEDS: traMADol HCL (*CRX) 50 MG TABLET PO (08:11)
[2025-08-02] MEDS: guaiFENesin 12 HR 600 MG TABCR PO ×2 (08:17→16:06)
[2025-08-02] MEDS: POTASSIUM CHLORIDE 10 MEQ ER TABLET PO (08:17)
[2025-08-02] MEDS: FUROSEMIDE 40 MG TABLET PO (08:17)
[2025-08-02] MEDS: LOSARTAN POTASSIUM 50 MG TABLET PO (08:18)
[2025-08-02] MEDS: ROFLUMILAST 500 MCG TABLET PO (08:18)
[2025-08-02] MEDS: FINASTERIDE 5 MG TABLET PO (08:18)
[2025-08-02] MEDS: MULTIVITAMINS /C LUTEIN (CENTRUM SILVER) TABLET *BKC 1 TAB PO (08:18)
[2025-08-02] MEDS: UMECLIDINIUM/VILANTEROL 62.5-25 MCG ELLIPTA 1 PUFF INHALATION (08:23)
[2025-08-02] MEDS: CEFEPIME 1 GM in SODIUM CHLORIDE 0.9% IV 50 ML 100 ML IVPB ×2 (08:32→20:43)
--- NOTE | 2025-08-02 10:34 | P.PNIM_ITS ---
Assessment and Plan Assessment and Plan (1) Urinary tract infection due to Pseudomonas aeruginosa: Code(s): N39.0 - Urinary tract infection, site not specified; B96.5 - Pseudomonas (aeruginosa) (mallei) (pseudomallei) as the cause of diseases classified elsewhere Status: Acute (2) Urinary retention with incomplete bladder emptying: Code(s): R33.9 - Retention of urine, unspecified Status: Acute (3) Bronchiectasis: Qualifiers: Bronchiectasis type: uncomplicated Qualified Code(s): J47.9 - Bronchiectasis, uncomplicated Code(s): J47.9 - Bronchiectasis, uncomplicated Status: Acute (4) Chronic respiratory failure with hypoxia, on home oxygen therapy: Code(s): J96.11 - Chronic respiratory failure with hypoxia; Z99.81 - Dependence on supp lemental oxygen Status: Acute (5) Chronic kidney disease, stage IV (severe): Code(s): N18.4 - Chronic kidney disease, stage 4 (severe) Status: Chronic Plan This is a 74-year-old male who presented with increased shortness of breath and urinary symptoms. He has been having urinary symptoms for couple of weeks as well as diarrhea for the last month. Reports subjective fever chills fatigue anxiety and abdominal pain. No chest pain. Has history of COPD with 4 L oxygen at baseline. History of DVT/PE on Eliquis. On ED evaluation his vitals were stable. Laboratory workup revealed WBC of 7.3 hemoglobin 10.4 platelet of 216. Chem panel showed sodium 140 potassium 4.5 chloride 100 bicarbonate 35 BUN 37 creatinine 2.5 blood glucose of 113. LFTs were normal. Urinalysis with more than 100 urine WBC. EKG showed with with nonspecific ST-T changes. Chest x-ray with no acute pulmonary findings. Severe emphysema of lungs with chronic pleural thickening of the left costophrenic angle. Severe atherosclerotic aorta noted. CT also demonstrates severe emphysematous changes of the lungs and findings suggestive of bronchopneumonia changes of the left lower lobe. Stable noncalcified nodules of the left lung. 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 UTI recent urine culture as an outpatient basis growing Pseudomonas resistant to all oral antibiotics. IV cefepime started BPH and history of urinary retention. Postvoid residual greater than 400 mL. Patient currently on Flomax and Proscar which will be resumed. [place] catheter was placed. Renal ultrasound 07/31/2025 with bilateral simple appearing renal cysts. Nonspecific bladder density correlate for cystitis. CKD stage 4 COPD with chronic hypoxic respiratory failure Bronchiectasis Small area bronchopneumonia left lower lobe. Also added doxycycline for atypical coverage. Continue on DuoNeb scheduled History of Mycobacterium avium complex DVT prophylaxis heparin subQ Code status full code Subjective Date/time seen: 08/02/25 10:34 Interval history: Chart reviewed. Reports cough. Denies any shortness of breath. Denies any chest pain. [place] catheter was placed in the ER. Review of Systems Review of Systems: All systems reviewed & are unremarkable except as noted in HPI and below Exam Narrative: GENERAL: The patient is well developed, not in acute distress HEENT: Nonicteric sclerae, PERRLA, EOMI. Oropharynx clear. Moist mucous membranes. Conjunctivae appear well perfused. CHEST: Chest wall is nontender. HEART: Regular rate and rhythm without murmur, rubs, or gallops LUNGS: Left basal crackles, no respiratory distress ABDOMEN: Soft, positive bowel sounds, non-tender, no organomegaly. SKIN: No rash, no excessive bruising, petechiae, or purpura. NEUROLOGIC: Cranial nerves II-XII intact, alert and oriented x 3, no gross motor deficits EXTREMITIES: no edema, cyanosis or clubbing [place] in place with cloudy urine in tubing Objective Data Vital Signs Vital Signs: Vital Signs - 24 hr 08/01/25 14:40 08/01/25 17:00 08/01/25 17:02 Temperature 97.8 F Pulse Rate 86 79 Respiratory Rate 20 15 Blood Pressure 156/68 H 175/92 H Pulse Oximetry 95 100 100 Oxygen Delivery Nasal Cannula Nasal Cannula Oxygen Flow Rate 4 3 08/01/25 17:46 08/01/25 17:47 08/01/25 18:14 Temperature Pulse Rate 82 84 86 Respiratory Rate 24 H 20 24 H Blood Pressure 180/78 H Pulse Oximetry 100 100 Oxygen Delivery Oxygen Flow Rate 08/01/25 18:20 08/01/25 18:31 08/01/25 19:34 Temperature Pulse Rate 80 78 90 Respiratory Rate 20 26 H 21 H Blood Pressure 175/71 H Pulse Oximetry 100 Oxygen Delivery Oxygen Flow Rate 08/01/25 20:04 08/01/25 21:00 08/01/25 21:05 Temperature Pulse Rate 79 88 92 Respiratory Rate 23 H 20 20 Blood Pressure Pulse Oximetry 100 Oxygen Delivery Oxygen Flow Rate 08/01/25 22:35 08/01/25 22:40 08/02/25 00:01 Temperature Pulse Rate 75 88 Respiratory Rate 22 H 20 Blood Pressure 180/98 H 182/79 H Pulse Oximetry 100 98 Oxygen Delivery Oxygen Flow Rate 4 08/02/25 00:30 08/02/25 00:32 08/02/25 00:35 Temperature Pulse Rate 90 93 Respiratory Rate 24 H 20 Blood Pressure Pulse Oximetry 95 Oxygen Delivery Room Air Oxygen Flow Rate 08/02/25 00:41 08/02/25 04:44 08/02/25 04:49 Temperature 97.2 F L Pulse Rate 88 96 97 Respiratory Rate 20 20 20 Blood Pressure 133/65 Pulse Oximetry 98 Oxygen Delivery Oxygen Flow Rate 08/02/25 05:17 08/02/25 07:57 08/02/25 08:05 Temperature 97.2 F L Pulse Rate 93 76 Respiratory Rate 24 H 20 Blood Pressure 171/72 H Pulse Oximetry 99 96 Oxygen Delivery Nasal Cannula Oxygen Flow Rate 4 08/02/25 08:06 08/02/25 08:14 Temperature Pulse Rate 78 82 Respiratory Rate 20 Blood Pressure Pulse Oximetry Oxygen Delivery Oxygen Flow Rate Intake/Output Intake/Output: Intake & Output 07/30/25 07/31/25 08/01/25 08/02/25 23:59 23:59 23:59 23:59 Intake Total 50 440 Output Total 775 Balance 50 -335 Meds/Results Medications: Active Medications Generic Name Dose Route Start Last Admin Trade Name Freq PRN Reason Stop Dose Admin Acetaminophen 1,000 mg 08/02/25 04:44 Acetaminophen 500 Mg Tablet PO Q6H PRN Pain 1-3 or fever Albuterol/Ipratropium 3 ml 08/01/25 20:00 08/02/25 07:57 Ipratropium 0.5 Mg/Albuterol Sulfate 2.5 Mg (Base) Ampul.Neb 3 Ml INHALATION 3 ml Q4HRT JUSTIN Administration Amlodipine Besylate 10 mg 08/02/25 09:00 08/02/25 08:18 Amlodipine Besylate 10 Mg Tablet PO 10 mg DAILY JUSTIN Administration Atorvastatin Calcium 80 mg 08/02/25 18:00 Atorvastatin 40 Mg Tablet PO QPM JUSTNI Carvedilol 25 mg 08/02/25 09:00 08/02/25 08:14 Carvedilol 25 Mg Tablet PO 25 mg Q12H JUSTIN Administration Cilostazol 50 mg 08/02/25 07:30 08/02/25 07:35 Cilostazol 50 Mg Tablet PO 50 mg 0730,1630 JUSTIN Administration Finasteride 5 mg 08/02/25 09:00 08/02/25 08:18 Finasteride 5 Mg Tablet PO 5 mg QAM JUSTIN Administration Furosemide 40 mg 08/02/25 09:00 08/02/25 08:17 Furosemide 40 Mg Tablet PO 40 mg QAM JUSTIN Administration Gabapentin 300 mg 08/02/25 04:44 Gabapentin 300 Mg Capsule PO DAILY PRN neuropathy Guaifenesin 600 mg 08/02/25 09:00 08/02/25 08:17 Guaifenesin 12 Hr 600 Mg Tabcr PO 600 mg BID JUSTIN Administration Heparin Sodium (Porcine) 5,000 units 08/02/25 09:00 08/02/25 08:24 Heparin Sodium 5,000 Units/Ml Vial SUB-Q 5,000 units Q12HR JUSTIN Administration Doxycycline Hyclate 100 mg/ 100 mls @ 100 mls/hr 08/02/25 05:00 08/02/25 05:15 Sodium Chloride IVPB 100 mls/hr Q12H JUSTIN Administration Cefepime HCl 1 gm/ Sodium 50 mls @ 100 mls/hr 08/02/25 09:00 08/02/25 08:32 Chloride IVPB 100 mls/hr Q12H JUSTIN Administration Loratadine 10 mg 08/02/25 05:06 Loratadine 10 Mg Tablet PO HS PRN allergy symptoms Losartan Potassium 50 mg 08/02/25 09:00 08/02/25 08:18 Losartan Potassium 50 Mg Tablet PO 50 mg DAILY JUSTIN Administration Multivitamins/Minerals 1 tab 08/02/25 09:00 08/02/25 08:18 Multivitamins /C Lutein (Centrum Silver) Tablet *Bkc PO 1 tab DAILY JUSTIN Administration Polyethylene Glycol 17 gm 08/02/25 04:49 Polyethylene Glycol 3350 17 Gm Powd.Pack PO DAILY PRN Constipation Potassium Chloride 10 meq 08/02/25 08:00 08/02/25 08:17 Potassium Chloride 10 Meq Er Tablet PO 10 meq DAILY@0800 JUSTIN Administration Roflumilast 500 mcg 08/02/25 09:00 08/02/25 08:18 Roflumilast 500 Mcg Tablet PO 500 mcg DAILY JUSTIN Administration Tamsulosin HCl 0.8 mg 08/02/25 21:00 Tamsulosin Hcl 0.4 Mg Capsule PO HS [facility] Tramadol HCl 50 mg 08/02/25 04:49 08/02/25 08:11 Tramadol Hcl (*Crx) 50 Mg Tablet PO 50 mg Q6H PRN Administration pain 4-10 Umeclidinium/Vilanterol 1 puff 08/02/25 08:00 08/02/25 08:23 Umeclidinium/Vilanterol 62.5-25 Mcg Ellipta INHALATION 1 puff DAILYRT JUSTIN Administration Radiology Results: ITS Impressions Chest X-Ray 08/01/25 15:23 IMPRESSION: 1. No acute pulmonary findings. Severe emphysema of lungs with chronic pleural thickening of left costophrenic angle. Severe atherosclerotic aorta. Chest/Abdomen/Pelvis CT 08/01/25 18:13 IMPRESSION: 1. Severe emphysematous changes of lungs. Peribronchial thickening of left lung base with mild bronchiectasis as mentioned above. Findings are suggestive of bronchopneumonic changes in the left lower lobe. Stable noncalcified nodules of left lung. Continued follow-up by CT scan at 6 months is recommended. 2. Diffuse abdominal aortic aneurysm measuring 4 cm in diameter at L1-2 and 3.6 cm at L4-5 level. 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 3 severe calcific atherosclerotic disease of the iliac arteries on both sides right worse than the left. The evaluation of pelvis limited by artifacts from bilateral hip arthroplasty. Labs Labs: Laboratory Results - last 24 hr 08/01/25 08/01/25 08/01/25 15:01 17:49 20:17 WBC 7.3 RBC 3.69 L Hgb 10.4 L Hct 34.6 L MCV 93.8 MCH 28.2 MCHC 30.1 L RDW 14.2 Plt Count 216 MPV 9.3 Immature Gran % (Auto) 0.3 Neut % (Auto) 79.9 H Lymph % (Auto) 10.0 L [place] % (Auto) 6.3 Eos % (Auto) 3.1 Baso % (Auto) 0.4 Lymph # (Auto) 0.73 L [place] # (Auto) 0.5 Eos # (Auto) 0.2 Baso # (Auto) 0.0 Abs Immat Gran (auto) 0.02 Absolute Neuts (auto) 5.9 Absolute Nucleated RBC 0.000 Nucleated RBC % 0.0 Sodium 140 Potassium 4.5 Chloride 100 Carbon Dioxide 35 H Anion Gap 5 BUN 37 H D Creatinine 2.52 H Estim Creat Clear Calc 23 Estimated GFR 25 L Glucose 113 H Lactic Acid 0.6 L Calcium 9.2 Total Bilirubin 0.5 AST 26 ALT 16 Alkaline Phosphatase 99 Total Protein 8.1 Albumin 4.3 Urine Color Yellow Urine Appearance Clear Urine pH 7.0 Ur Specific [place] 1.008 Urine Protein Trace Urine Glucose (UA) Negative Urine Ketones Negative Ur Blood (Man) 2+ H Urine Nitrate Negative Urine Bilirubin Negative Urine Urobilinogen 0.2 Leukocyte Esterase Rfl 3+ H Urine RBC 21-50 H Urine WBC >100 H Ur Squamous Epith Cells None seen Urine Bacteria None seen Urine Casts 0-2 Nasal MRSA (PCR) 08/01/25 20:38 WBC RBC Hgb Hct MCV MCH MCHC RDW Plt Count MPV Immature Gran % (Auto) Neut % (Auto) Lymph % (Auto) [place] % (Auto) Eos % (Auto) Baso % (Auto) Lymph # (Auto) [place] # (Auto) Eos # (Auto) Baso # (Auto) Abs Immat Gran (auto) Absolute Neuts (auto) Absolute Nucleated RBC Nucleated RBC % Sodium Potassium Chloride Carbon Dioxide Anion Gap BUN Creatinine Estim Creat Clear Calc Estimated GFR Glucose Lactic Acid Calcium Total Bilirubin AST ALT Alkaline Phosphatase Total Protein Albumin Urine Color Urine Appearance Urine pH Ur Specific [place] Urine Protein Urine Glucose (UA) Urine Ketones Ur Blood (Man) Urine Nitrate Urine Bilirubin Urine Urobilinogen Leukocyte Esterase Rfl Urine RBC Urine WBC Ur Squamous Epith Cells Urine Bacteria Urine Casts Nasal MRSA (PCR) Not detected Imaging Radiologist's impression: ITS Impressions Chest X-Ray 08/01/25 15:23 IMPRESSION: 1. No acute pulmonary findings. Severe emphysema of lungs with chronic pleural thickening of left costophrenic angle. Severe atherosclerotic aorta. Chest/Abdomen/Pelvis CT 08/01/25 18:13
[2025-08-02 16:26] LABS: Hematocrit 32.7 % (42.0-52.0); Hemoglobin 9.8 g/dL (14.0-18.0); Immature Granulocyte Percent A 0.3 % (0-0.5); Lymphocytes Absolute Auto 0.60 K/mm3 (0.9-3.2); Mean Corpuscular HGB Conc 30.0 g/dl (32-36); Mean Corpuscular Hemoglobin 28.6 pg (26-34); Mean Corpuscular Volume 95.3 fl (80-100); Nucleated Red Blood Cells Absolute Auto 0.000 K/mm3 (0.0-0.012); Nucleated Red Blood Cells Perc 0.0 % (0.0-0.2); Platelet Count Result 201 k/mm3 (150-375); Red Blood Count 3.43 M/mm3 (4.6-6.20); White Blood Count 7.5 K/mm3 (4.5-10.0)
[2025-08-02 17:36] LABS: Alanine Aminotransferase 13 U/L (6-50); Albumin Level 3.9 g/dL (3.5-5.1); Alkaline Phosphatase 70 U/L (38-126); Anion Gap 3 mmol/L (4-12); Aspartate Amino Transferase 29 U/L (17-59); Bilirubin,Total 0.7 mg/dL (0.2-1.3); Blood Urea Nitrogen 39 mg/dL (9-20); Calcium 8.9 mg/dL (8.4-10.2); Carbon Dioxide 35 mmol/L (22-30); Chloride 100 mmol/L (98-107); Estimated CRCL calculation 22 ml/min; Estimated Glomerular Filt Rate 25; Glucose 81 mg/dL (65-110); Magnesium 2.2 mg/dL (1.6-2.3); Potassium 4.6 mmol/L (3.4-5.0); Sodium 138 mmol/L (137-145); Total Protein 7.5 g/dL (6.3-8.2)
[2025-08-02] MEDS: ATORVASTATIN 40 MG TABLET 80 MG PO (20:39)
[2025-08-02] MEDS: TAMSULOSIN HCL 0.4 MG CAPSULE 0.8 MG PO (20:39)
[2025-08-03] VITALS (17 sets, daily range): BP systolic 116–125; BP diastolic 46–55; PULSE 69–84; RESP 18–20; TEMP 36.2–37.1; O2SAT 93–98
[2025-08-03] MEDS: IPRATROPIUM 0.5 MG/ALBUTEROL SULFATE 2.5 MG (BASE) AMPUL.NEB 3 ML INHALATION ×4 (04:01→20:26)
[2025-08-03] MEDS: DOXYCYCLINE IV 100 MG in SODIUM CHLORIDE 0.9% IV 100 ML IVPB ×2 (04:19→16:24)
[2025-08-03 05:23] LABS: Hematocrit 30.5 % (42.0-52.0); Hemoglobin 9.1 g/dL (14.0-18.0); Immature Granulocyte Percent A 0.5 % (0-0.5); Lymphocytes Absolute Auto 0.58 K/mm3 (0.9-3.2); Mean Corpuscular HGB Conc 29.8 g/dl (32-36); Mean Corpuscular Hemoglobin 28.7 pg (26-34); Mean Corpuscular Volume 96.2 fl (80-100); Nucleated Red Blood Cells Absolute Auto 0.000 K/mm3 (0.0-0.012); Nucleated Red Blood Cells Perc 0.0 % (0.0-0.2); Platelet Count Result 172 k/mm3 (150-375); Red Blood Count 3.17 M/mm3 (4.6-6.20); White Blood Count 7.6 K/mm3 (4.5-10.0)
[2025-08-03 05:43] LABS: Alanine Aminotransferase 11 U/L (6-50); Albumin Level 3.5 g/dL (3.5-5.1); Alkaline Phosphatase 92 U/L (38-126); Anion Gap 3 mmol/L (4-12); Aspartate Amino Transferase 17 U/L (17-59); Bilirubin,Total 0.4 mg/dL (0.2-1.3); Blood Urea Nitrogen 47 mg/dL (9-20); Calcium 8.9 mg/dL (8.4-10.2); Carbon Dioxide 33 mmol/L (22-30); Chloride 101 mmol/L (98-107); Estimated CRCL calculation 18 ml/min; Estimated Glomerular Filt Rate 20; Glucose 112 mg/dL (65-110); Magnesium 2.3 mg/dL (1.6-2.3); Potassium 4.4 mmol/L (3.4-5.0); Sodium 137 mmol/L (137-145); Total Protein 6.7 g/dL (6.3-8.2)
[2025-08-03 06:50] LABS: Hypochromasia 1+; Ovalocytes Occasional
[2025-08-03 06:51] LABS: Burr Cells 1+
[2025-08-03 06:52] LABS: Schistocytes Rare
[2025-08-03] MEDS: LOSARTAN POTASSIUM 50 MG TABLET PO (08:06)
[2025-08-03] MEDS: MULTIVITAMINS /C LUTEIN (CENTRUM SILVER) TABLET *BKC 1 TAB PO (08:06)
[2025-08-03] MEDS: FINASTERIDE 5 MG TABLET PO (08:06)
[2025-08-03] MEDS: FUROSEMIDE 40 MG TABLET PO (08:07)
[2025-08-03] MEDS: ROFLUMILAST 500 MCG TABLET PO (08:07)
[2025-08-03] MEDS: POTASSIUM CHLORIDE 10 MEQ ER TABLET PO (08:07)
[2025-08-03] MEDS: guaiFENesin 12 HR 600 MG TABCR PO ×2 (08:07→16:25)
[2025-08-03] MEDS: CEFEPIME 1 GM in SODIUM CHLORIDE 0.9% IV 50 ML 100 ML IVPB ×2 (08:11→20:25)
[2025-08-03] MEDS: UMECLIDINIUM/VILANTEROL 62.5-25 MCG ELLIPTA 1 PUFF INHALATION (08:48)
--- NOTE | 2025-08-03 10:50 | PM.IMPN2 ---
Assessment and Plan Assessment and Plan (1) Urinary tract infection due to Pseudomonas aeruginosa: Code(s): N39.0 - Urinary tract infection, site not specified; B96.5 - Pseudomonas (aeruginosa) (mallei) (pseudomallei) as the cause of diseases classified elsewhere Status: Acute (2) Urinary retention with incomplete bladder emptying: Code(s): R33.9 - Retention of urine, unspecified Status: Acute (3) Bronchiectasis: Qualifiers: Bronchiectasis type: uncomplicated Qualified Code(s): J47.9 - Bronchiectasis, uncomplicated Code(s): J47.9 - Bronchiectasis, uncomplicated Status: Acute (4) Chronic respiratory failure with hypoxia, on home oxygen therapy: Code(s): J96.11 - Chronic respiratory failure with hypoxia; Z99.81 - Dependence on supplemental oxygen Status: Acute (5) Chronic kidney disease, stage IV (severe): Code(s): N18.4 - Chronic kidney disease, stage 4 (severe) Status: Chronic Plan This is a 74-year-old male who presented with increased shortness of breath and urinary symptoms. He has been having urinary symptoms for couple of weeks as well as diarrhea for the last month. Reports subjective fever chills fatigue anxiety and abdominal pain. No chest pain. Has history of COPD with 4 L oxygen at baseline. History of DVT/PE on Eliquis. On ED evaluation his vitals were stable. Laboratory workup revealed WBC of 7.3 hemoglobin 10.4 platelet of 216. Chem panel showed sodium 140 potassium 4.5 chloride 100 bicarbonate 35 BUN 37 creatinine 2.5 blood glucose of 113. LFTs were normal. Urinalysis with more than 100 urine WBC. EKG showed with with nonspecific ST-T changes. Chest x-ray with no acute pulmonary findings. Severe emphysema of lungs with chronic pleural thickening of the left costophrenic angle. Severe atherosclerotic aorta noted. CT also demonstrates severe emphysematous changes of the lungs and findings suggestive of bronchopneumonia changes of the left lower lobe. Stable noncalcified nodules of the left lung. 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 UTI recent urine culture as an outpatient basis growing Pseudomonas resistant to all oral antibiotics. IV cefepime started BPH and history of urinary retention. Postvoid residual greater than 400 mL. Patient currently on Flomax and Proscar which will be resumed. [place] catheter was placed. Renal ultrasound 07/31/2025 with bilateral simple appearing renal cysts. Nonspecific bladder density correlate for cystitis. Infectious disease consult CKD stage 4 continue to monitor renal function COPD with chronic hypoxic respiratory failure Bronchiectasis Small area bronchopneumonia left lower lobe. Also added doxycycline for atypical coverage. Continue on DuoNeb scheduled. Get sputum culture History of Mycobacterium avium complex DVT prophylaxis heparin subQ Code status full code Subjective Date/time seen: 08/03/25 10:50 Interval history: Feeling better. Has some sore throat today. Denies any new complaints. Review of Systems Review of Systems: All systems reviewed & are unremarkable except as noted in HPI and below Exam Narrative: GENERAL: The patient is well developed, not in acute distress HEENT: Nonicteric sclerae, PERRLA, EOMI. Oropharynx clear. Moist mucous membranes. Conjunctivae appear well perfused. CHEST: Chest wall is nontender. HEART: Regular rate and rhythm without murmur, rubs, or gallops LUNGS: Left basal crackles, no respiratory distress ABDOMEN: Soft, positive bowel sounds, non-tender, no organomegaly. SKIN: No rash, no excessive bruising, petechiae, or purpura. NEUROLOGIC: Cranial nerves II-XII intact, alert and oriented x 3, no gross motor deficits EXTREMITIES: no edema, cyanosis or clubbing [place] in place with cloudy urine in tubing Objective Data Vital Signs Vital Signs: Vital Signs - 24 hr 08/02/25 12:40 08/02/25 12:45 08/02/25 13:59 Temperature 96.9 F L Pulse Rate 82 80 67 Respiratory Rate 20 20 17 Blood Pressure 108/50 L Pulse Oximetry 90 Oxygen Delivery Oxygen Flow Rate 08/02/25 14:01 08/02/25 16:54 08/02/25 17:09 Temperature Pulse Rate 84 80 Respiratory Rate 20 20 Blood Pressure Pulse Oximetry 93 Oxygen Delivery Oxygen Flow Rate 08/02/25 20:00 08/02/25 20:15 08/02/25 20:26 Temperature Pulse Rate 82 82 82 Respiratory Rate 20 20 20 Blood Pressure Pulse Oximetry 99 Oxygen Delivery Nasal Cannula Oxygen Flow Rate 4 08/02/25 20:26 08/02/25 20:39 08/02/25 22:00 Temperature 97.7 F Pulse Rate 72 76 Respiratory Rate 20 Blood Pressure 122/53 L Pulse Oximetry 96 99 Oxygen Delivery Nasal Cannula Oxygen Flow Rate 4 08/02/25 23:08 08/02/25 23:14 08/03/25 04:02 Temperature Pulse Rate 82 82 80 Respiratory Rate 20 20 18 Blood Pressure Pulse Oximetry Oxygen Delivery Oxygen Flow Rate 08/03/25 04:08 08/03/25 06:00 08/03/25 08:07 Temperature 97.2 F L Pulse Rate 80 77 76 Respiratory Rate 18 20 Blood Pressure 117/46 L Pulse Oximetry 98 Oxygen Delivery Oxygen Flow Rate 08/03/25 08:11 08/03/25 08:50 08/03/25 08:51 Temperature Pulse Rate 78 Respiratory Rate 18 18 Blood Pressure Pulse Oximetry 93 93 Oxygen Delivery Nasal Cannula Nasal Cannula Oxygen Flow Rate 4 4 08/03/25 08:57 Temperature Pulse Rate 81 Respiratory Rate 18 Blood Pressure Pulse Oximetry Oxygen Delivery Oxygen Flow Rate Intake/Output Intake/Output: Intake & Output 07/31/25 08/01/25 08/02/25 08/03/25 23:59 23:59 23:59 23:59 Intake Total 50 1220 1030 Output Total 1075 150 Balance 50 145 880 Meds/Results Medications: Active Medications Generic Name Dose Route Start Last Admin Trade Name Freq PRN Reason Stop Dose Admin Acetaminophen 1,000 mg 08/02/25 04:44 Acetaminophen 500 Mg Tablet PO Q6H PRN Pain 1-3 or fever Albuterol/Ipratropium 3 ml 08/01/25 20:00 08/03/25 08:48 Ipratropium 0.5 Mg/Albuterol Sulfate 2.5 Mg (Base) Ampul.Neb 3 Ml INHALATION 3 ml Q4HRT JUSTIN Administration Amlodipine Besylate 10 mg 08/02/25 09:00 08/03/25 08:07 Amlodipine Besylate 10 Mg Tablet PO 10 mg DAILY JUSTIN Administration Atorvastatin Calcium 80 mg 08/02/25 21:00 08/02/25 20:39 Atorvastatin 40 Mg Tablet PO 80 mg QHS JUSTIN Administration Carvedilol 25 mg 08/02/25 09:00 08/03/25 08:07 Carvedilol 25 Mg Tablet PO 25 mg Q12H JUSTIN Administration Cilostazol 50 mg 08/02/25 07:30 08/03/25 08:11 Cilostazol 50 Mg Tablet PO 50 mg 0730,1630 JUSTIN Administration Finasteride 5 mg 08/02/25 09:00 08/03/25 08:06 Finasteride 5 Mg Tablet PO 5 mg QAM JUSTIN Administration Fluticasone Propionate 1 spray 08/03/25 21:00 Fluticasone Propionate 0.05% Na Spr 16 Gm Btl (*Bkc) NASAL Q12HR JUSTIN Furosemide 40 mg 08/02/25 09:00 08/03/25 08:07 Furosemide 40 Mg Tablet PO 40 mg QAM JUSTIN Administration Gabapentin 300 mg 08/02/25 04:44 Gabapentin 300 Mg Capsule PO DAILY PRN neuropathy Guaifenesin 600 mg 08/02/25 09:00 08/03/25 08:07 Guaifenesin 12 Hr 600 Mg Tabcr PO 600 mg BID JUSTIN Administration Heparin Sodium (Porcine) 5,000 units 08/02/25 09:00 08/03/25 08:06 Heparin Sodium 5,000 Units/Ml Vial SUB-Q 5,000 units Q12HR JUSTIN Administration Doxycycline Hyclate 100 mg/ 100 mls @ 100 mls/hr 08/02/25 05:00 08/03/25 05:19 Sodium Chloride IVPB Infused Q12H JUSTIN Infusion Cefepime HCl 1 gm/ Sodium 50 mls @ 100 mls/hr 08/02/25 09:00 08/03/25 08:40 Chloride IVPB Infused Q12H JUSTIN Infusion Loratadine 10 mg 08/02/25 05:06 Loratadine 10 Mg Tablet PO HS PRN allergy symptoms Losartan Potassium 50 mg 08/02/25 09:00 08/03/25 08:06 Losartan Potassium 50 Mg Tablet PO 50 mg DAILY JUSTIN Administration Multivitamins/Minerals 1 tab 08/02/25 09:00 08/03/25 08:06 Multivitamins /C Lutein (Centrum Silver) Tablet *Bkc PO 1 tab DAILY JUSTIN Administration Phenol 1 spray 08/03/25 10:49 Phenol/Sod Pheno [place] (*Bkc) MUCOUS MEM PRN PRN Sore Throat Polyethylene Glycol 17 gm 08/02/25 04:49 Polyethylene Glycol 3350 17 Gm Powd.Pack PO DAILY PRN Constipation Potassium Chloride 10 meq 08/02/25 08:00 08/03/25 08:07 Potassium Chloride 10 Meq Er Tablet PO 10 meq DAILY@0800 JUSTIN Administration Roflumilast 500 mcg 08/02/25 09:00 08/03/25 08:07 Roflumilast 500 Mcg Tablet PO 500 mcg DAILY JUSTIN Administration Tamsulosin HCl 0.8 mg 08/02/25 21:00 08/02/25 20:39 Tamsulosin Hcl 0.4 Mg Capsule PO 0.8 mg HS JUSTIN Administration Tramadol HCl 50 mg 08/02/25 04:49 08/02/25 08:11 Tramadol Hcl (*Crx) 50 Mg Tablet PO 50 mg Q6H PRN Administration pain 4-10 Umeclidinium/Vilanterol 1 puff 08/02/25 08:00 08/03/25 08:48 Umeclidinium/Vilanterol 62.5-25 Mcg Ellipta INHALATION 1 puff DAILYRT JUSTIN Administration Radiology Results: ITS Impressions Chest X-Ray 08/01/25 15:23 IMPRESSION: 1. No acute pulmonary findings. Severe emphysema of lungs with chronic pleural thickening of left costophrenic angle. Severe atherosclerotic aorta. Chest/Abdomen/Pelvis CT 08/01/25 18:13 IMPRESSION: 1. Severe emphysematous changes of lungs. Peribronchial thickening of left lung base with mild bronchiectasis as mentioned above. Findings are suggestive of bronchopneumonic changes in the left lower lobe. Stable noncalcified nodules of left lung. Continued follow-up by CT scan at 6 months is recommended. 2. Diffuse abdominal aortic aneurysm measuring 4 cm in diameter at L1-2 and 3.6 cm at L4-5 level. 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 3 severe calcific atherosclerotic disease of the iliac arteries on both sides right worse than the left. The evaluation of pelvis limited by artifacts from bilateral hip arthroplasty. Labs Labs: Laboratory Results - last 24 hr 08/02/25 08/03/25 16:14 05:04 WBC 7.5 7.6 RBC 3.43 L 3.17 L Hgb 9.8 L 9.1 L Hct 32.7 L 30.5 L MCV 95.3 96.2 MCH 28.6 28.7 MCHC 30.0 L 29.8 L RDW 14.3 14.3 Plt Count 201 172 MPV 9.3 9.9 Immature Gran % (Auto) 0.3 0.5 Neut % (Auto) 80.5 H 78.9 H Lymph % (Auto) 8.0 L 7.7 L [place] % (Auto) 7.7 8.3 Eos % (Auto) 3.1 4.2 Baso % (Auto) 0.4 0.4 Lymph # (Auto) 0.60 L 0.58 L [place] # (Auto) 0.6 0.6 Eos # (Auto) 0.2 0.3 Baso # (Auto) 0.0 0.0 Abs Immat Gran (auto) 0.02 0.04 H Absolute Neuts (auto) 6.0 6.0 Absolute Nucleated RBC 0.000 0.000 Band Neutrophils % Not Reportable Nucleated RBC % 0.0 0.0 Platelet Estimate Adequate Hypochromasia 1+ Ovalocytes Occasional [place] Cells 1+ Schistocytes Rare Sodium 138 137 Potassium 4.6 4.4 Chloride 100 101 Carbon Dioxide 35 H 33 H Anion Gap 3 L 3 L BUN 39 H 47 H Creatinine 2.55 H 3.06 H Estim Creat Clear Calc 22 18 Estimated GFR 25 L 20 L Glucose 81 112 H Calcium 8.9 8.9 Magnesium 2.2 2.3 Total Bilirubin 0.7 0.4 AST 29 17 ALT 13 11 Alkaline Phosphatase 70 92 Total Protein 7.5 6.7 Albumin 3.9 3.5 Imaging Radiologist's impression: ITS Impressions Chest X-Ray 08/01/25 15:23 IMPRESSION: 1. No acute pulmonary findings. Severe emphysema of lungs with chronic pleural thickening of left costophrenic angle. Severe atherosclerotic aorta. Chest/Abdomen/Pelvis CT 08/01/25 18:13
[2025-08-03] MEDS: FLUTICASONE PROPIONATE 0.05% NA SPR 16 GM BTL (*BKC) 1 SPRAY NASAL ×2 (11:23→20:31)
[2025-08-03] MEDS: PHENOL/SOD PHENO SPRAY CHERRY (*BKC) 1 SPRAY MUCOUS MEM (11:24)
[2025-08-03] MEDS: ACETAMINOPHEN 500 MG TABLET 1000 MG PO (13:40)
[2025-08-03] MEDS: ATORVASTATIN 40 MG TABLET 80 MG PO (20:25)
[2025-08-03] MEDS: TAMSULOSIN HCL 0.4 MG CAPSULE 0.8 MG PO (20:31)
[2025-08-03 21:53] LABS: Toxigenic C. Diff NEGATIVE (NEGATIVE)
[2025-08-03] MEDS: traMADol HCL (*CRX) 50 MG TABLET PO (22:16)
[2025-08-04] VITALS (20 sets, daily range): BP systolic 118–121; BP diastolic 46–57; PULSE 63–83; RESP 18–20; TEMP 36.7; O2SAT 94–99
[2025-08-04] MEDS: IPRATROPIUM 0.5 MG/ALBUTEROL SULFATE 2.5 MG (BASE) AMPUL.NEB 3 ML INHALATION ×6 (00:08→23:32)
[2025-08-04] MEDS: DOXYCYCLINE IV 100 MG in SODIUM CHLORIDE 0.9% IV 100 ML IVPB ×2 (04:43→21:00)
[2025-08-04 05:24] LABS: Hematocrit 29.7 % (42.0-52.0); Hemoglobin 8.7 g/dL (14.0-18.0); Immature Granulocyte Percent A 0.2 % (0-0.5); Lymphocytes Absolute Auto 0.54 K/mm3 (0.9-3.2); Mean Corpuscular HGB Conc 29.3 g/dl (32-36); Mean Corpuscular Hemoglobin 27.9 pg (26-34); Mean Corpuscular Volume 95.2 fl (80-100); Nucleated Red Blood Cells Absolute Auto 0.000 K/mm3 (0.0-0.012); Nucleated Red Blood Cells Perc 0.0 % (0.0-0.2); Platelet Count Result 157 k/mm3 (150-375); Red Blood Count 3.12 M/mm3 (4.6-6.20); White Blood Count 6.1 K/mm3 (4.5-10.0)
[2025-08-04 05:43] LABS: Anisocytosis 1+; Burr Cells 1+; Hypochromasia 1+; Poikilocytosis 1+; Schistocytes None Seen
[2025-08-04 06:08] LABS: Alanine Aminotransferase 10 U/L (6-50); Albumin Level 3.4 g/dL (3.5-5.1); Alkaline Phosphatase 94 U/L (38-126); Anion Gap 5 mmol/L (4-12); Aspartate Amino Transferase 18 U/L (17-59); Bilirubin,Total 0.4 mg/dL (0.2-1.3); Blood Urea Nitrogen 58 mg/dL (9-20); Calcium 8.7 mg/dL (8.4-10.2); Carbon Dioxide 31 mmol/L (22-30); Chloride 99 mmol/L (98-107); Estimated CRCL calculation 15 ml/min; Estimated Glomerular Filt Rate 16; Glucose 89 mg/dL (65-110); Magnesium 2.2 mg/dL (1.6-2.3); Potassium 4.7 mmol/L (3.4-5.0); Sodium 135 mmol/L (137-145); Total Protein 6.6 g/dL (6.3-8.2)
[2025-08-04] MEDS: UMECLIDINIUM/VILANTEROL 62.5-25 MCG ELLIPTA 1 PUFF INHALATION (07:54)
[2025-08-04] MEDS: POTASSIUM CHLORIDE 10 MEQ ER TABLET PO (09:17)
[2025-08-04] MEDS: guaiFENesin 12 HR 600 MG TABCR PO ×2 (09:18→21:01)
[2025-08-04] MEDS: FUROSEMIDE 40 MG TABLET PO (09:18)
[2025-08-04] MEDS: MULTIVITAMINS /C LUTEIN (CENTRUM SILVER) TABLET *BKC 1 TAB PO (09:18)
[2025-08-04] MEDS: LOSARTAN POTASSIUM 50 MG TABLET PO (09:18)
[2025-08-04] MEDS: ROFLUMILAST 500 MCG TABLET PO (09:18)
[2025-08-04] MEDS: FINASTERIDE 5 MG TABLET PO (09:18)
[2025-08-04] MEDS: FLUTICASONE PROPIONATE 0.05% NA SPR 16 GM BTL (*BKC) 1 SPRAY NASAL ×2 (09:19→21:03)
[2025-08-04] MEDS: CEFEPIME 1 GM in SODIUM CHLORIDE 0.9% IV 50 ML 100 ML IVPB ×2 (09:19→21:00)
[2025-08-04] MEDS: ACETAMINOPHEN 500 MG TABLET 1000 MG PO (09:49)
--- NOTE | 2025-08-04 11:24 | PM.IMPN2 ---
Assessment and Plan Assessment and Plan (1) Urinary tract infection due to Pseudomonas aeruginosa: Code(s): N39.0 - Urinary tract infection, site not specified; B96.5 - Pseudomonas (aeruginosa) (mallei) (pseudomallei) as the cause of diseases classified elsewhere Status: Acute (2) Urinary retention with incomplete bladder emptying: Code(s): R33.9 - Retention of urine, unspecified Status: Acute (3) Bronchiectasis: Qualifiers: Bronchiectasis type: uncomplicated Qualified Code(s): J47.9 - Bronchiectasis, uncomplicated Code(s): J47.9 - Bronchiectasis, uncomplicated Status: Acute (4) Chronic respiratory failure with hypoxia, on home oxygen therapy: Code(s): J96.11 - Chronic respiratory failure with hypoxia; Z99.81 - Dependence on supplemental oxygen Status: Acute (5) Chronic kidney disease, stage IV (severe): Code(s): N18.4 - Chronic kidney disease, stage 4 (severe) Status: Chronic Plan This is a 74-year-old male who presented with increased shortness of breath and urinary symptoms. He has been having urinary symptoms for couple of weeks as well as diarrhea for the last month. Reports subjective fever chills fatigue anxiety and abdominal pain. No chest pain. Has history of COPD with 4 L oxygen at baseline. History of DVT/PE on Eliquis. On ED evaluation his vitals were stable. Laboratory workup revealed WBC of 7.3 hemoglobin 10.4 platelet of 216. Chem panel showed sodium 140 potassium 4.5 chloride 100 bicarbonate 35 BUN 37 creatinine 2.5 blood glucose of 113. LFTs were normal. Urinalysis with more than 100 urine WBC. EKG showed with with nonspecific ST-T changes. Chest x-ray with no acute pulmonary findings. Severe emphysema of lungs with chronic pleural thickening of the left costophrenic angle. Severe atherosclerotic aorta noted. CT also demonstrates severe emphysematous changes of the lungs and findings suggestive of bronchopneumonia changes of the left lower lobe. Stable noncalcified nodules of the left lung. 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 UTI recent urine culture as an outpatient basis growing Pseudomonas resistant to all oral antibiotics. IV cefepime started BPH and history of urinary retention. Postvoid residual greater than 400 mL. Patient currently on Flomax and Proscar which will be resumed. [place] catheter was placed. Renal ultrasound 07/31/2025 with bilateral simple appearing renal cysts. Nonspecific bladder density correlate for cystitis. Infectious disease consult CKD stage 4 continue to monitor renal function with mild ALFREDO. Bladder scan at bedside with no retention. Will get renal and bladder ultrasound. Gentle IV fluid will be started. Continue to trend creatinine. COPD with chronic hypoxic respiratory failure Bronchiectasis Small area bronchopneumonia left lower lobe. Also added doxycycline for atypical coverage. Continue on DuoNeb scheduled. Sputum culture pending History of Mycobacterium avium complex DVT prophylaxis heparin subQ Code status full code Subjective Date/time seen: 08/04/25 11:24 Interval history: No overnight events. No new complaints. Feels little better. Has some discomfort in the lower abdomen. Urine output low. Creatinine trending up. Review of Systems Review of Systems: All systems reviewed & are unremarkable except as noted in HPI and below Exam Narrative: GENERAL: The patient is well developed, not in acute distress HEENT: Nonicteric sclerae, PERRLA, EOMI. Oropharynx clear. Moist mucous membranes. Conjunctivae appear well perfused. CHEST: Chest wall is nontender. HEART: Regular rate and rhythm without murmur, rubs, or gallops LUNGS: Left basal crackles, no respiratory distress ABDOMEN: Soft, positive bowel sounds, non-tender, no organomegaly. SKIN: No rash, no excessive bruising, petechiae, or purpura. NEUROLOGIC: Cranial nerves II-XII intact, alert and oriented x 3, no gross motor deficits EXTREMITIES: no edema, cyanosis or clubbing [place] in place with cloudy urine in tubing Objective Data Vital Signs Vital Signs: Vital Signs - 24 hr 08/03/25 13:27 08/03/25 13:35 08/03/25 14:00 Temperature 97.8 F Pulse Rate 81 84 69 Respiratory Rate 18 18 18 Blood Pressure 125/55 L Pulse Oximetry 97 Oxygen Delivery Oxygen Flow Rate 08/03/25 20:00 08/03/25 20:25 08/03/25 20:26 Temperature Pulse Rate 72 74 76 Respiratory Rate 20 18 Blood Pressure Pulse Oximetry 95 Oxygen Delivery Nasal Cannula Oxygen Flow Rate 4 08/03/25 20:32 08/03/25 20:35 08/03/25 21:55 Temperature 98.7 F Pulse Rate 79 72 Respiratory Rate 18 20 Blood Pressure 116/54 L Pulse Oximetry 95 95 Oxygen Delivery Nasal Cannula Oxygen Flow Rate 4 08/04/25 00:08 08/04/25 00:15 08/04/25 04:20 Temperature Pulse Rate 69 71 72 Respiratory Rate 18 18 18 Blood Pressure Pulse Oximetry Oxygen Delivery Oxygen Flow Rate 08/04/25 04:28 08/04/25 04:53 08/04/25 07:54 Temperature 98.1 F Pulse Rate 74 83 69 Respiratory Rate 18 20 20 Blood Pressure 120/46 L Pulse Oximetry 94 Oxygen Delivery Oxygen Flow Rate 08/04/25 08:09 08/04/25 08:11 08/04/25 09:12 Temperature Pulse Rate 72 70 Respiratory Rate 20 Blood Pressure Pulse Oximetry 96 Oxygen Delivery Nasal Cannula Oxygen Flow Rate 4 Intake/Output Intake/Output: Intake & Output 08/01/25 08/02/25 08/03/25 08/04/25 23:59 23:59 23:59 23:59 Intake Total 50 1220 3000.0 1180 Output Total 1075 300 200 Balance 50 145 2700.0 980 Meds/Results Medications: Active Medications Generic Name Dose Route Start Last Admin Trade Name Freq PRN Reason Stop Dose Admin Acetaminophen 1,000 mg 08/02/25 04:44 08/04/25 09:49 Acetaminophen 500 Mg Tablet PO 1,000 mg Q6H PRN Administration Pain 1-3 or fever Albuterol/Ipratropium 3 ml 08/01/25 20:00 08/04/25 07:54 Ipratropium 0.5 Mg/Albuterol Sulfate 2.5 Mg (Base) Ampul.Neb 3 Ml INHALATION 3 ml Q4HRT JUSTIN Administration Amlodipine Besylate 10 mg 08/02/25 09:00 08/04/25 09:18 Amlodipine Besylate 10 Mg Tablet PO 10 mg DAILY JUSTIN Administration Atorvastatin Calcium 80 mg 08/02/25 21:00 08/03/25 20:25 Atorvastatin 40 Mg Tablet PO 80 mg QHS JUSTIN Administration Carvedilol 25 mg 08/02/25 09:00 08/04/25 09:12 Carvedilol 25 Mg Tablet PO 25 mg Q12H JUSTIN Administration Cilostazol 50 mg 08/02/25 07:30 08/04/25 09:18 Cilostazol 50 Mg Tablet PO 50 mg 0730,1630 JUSTIN Administration Finasteride 5 mg 08/02/25 09:00 08/04/25 09:18 Finasteride 5 Mg Tablet PO 5 mg QAM JUSTIN Administration Fluticasone Propionate 1 spray 08/03/25 11:00 08/04/25 09:19 Fluticasone Propionate 0.05% Na Spr 16 Gm Btl (*Bkc) NASAL 1 spray Q12HR JUSTIN Administration Furosemide 40 mg 08/02/25 09:00 08/04/25 09:18 Furosemide 40 Mg Tablet PO 40 mg QAM JUSTIN Administration Gabapentin 300 mg 08/02/25 04:44 Gabapentin 300 Mg Capsule PO DAILY PRN neuropathy Guaifenesin 600 mg 08/02/25 09:00 08/04/25 09:18 Guaifenesin 12 Hr 600 Mg Tabcr PO 600 mg BID JUSTNI Administration Heparin Sodium (Porcine) 5,000 units 08/02/25 09:00 08/04/25 09:18 Heparin Sodium 5,000 Units/Ml Vial SUB-Q 5,000 units Q12HR JUSTIN Administration Doxycycline Hyclate 100 mg/ 100 mls @ 100 mls/hr 08/02/25 05:00 08/04/25 04:43 Sodium Chloride IVPB 100 mls/hr Q12H JUSTIN Administration Cefepime HCl 1 gm/ Sodium 50 mls @ 100 mls/hr 08/02/25 09:00 08/04/25 09:19 Chloride IVPB 100 mls/hr Q12H JUSTIN Administration Sodium Chloride 1,000 mls @ 100 mls/hr 08/04/25 10:20 Normal Saline Iv IV CONT .Q10H JUSTIN Loratadine 10 mg 08/02/25 05:06 Loratadine 10 Mg Tablet PO HS PRN allergy symptoms Losartan Potassium 50 mg 08/02/25 09:00 08/04/25 09:18 Losartan Potassium 50 Mg Tablet PO 50 mg DAILY JUSTIN Administration Multivitamins/Minerals 1 tab 08/02/25 09:00 08/04/25 09:18 Multivitamins /C Lutein (Centrum Silver) Tablet *Bkc PO 1 tab DAILY JUSTIN Administration Phenol 1 spray 08/03/25 10:49 08/03/25 11:24 Phenol/Sod Pheno [place] Bruno (*Bkc) MUCOUS MEM 1 spray PRN PRN Administration Sore Throat Polyethylene Glycol 17 gm 08/02/25 04:49 Polyethylene Glycol 3350 17 Gm Powd.Pack PO DAILY PRN Constipation Potassium Chloride 10 meq 08/02/25 08:00 08/04/25 09:17 Potassium Chloride 10 Meq Er Tablet PO 10 meq DAILY@0800 JUSTIN Administration Roflumilast 500 mcg 08/02/25 09:00 08/04/25 09:18 Roflumilast 500 Mcg Tablet PO 500 mcg DAILY JUSTIN Administration Tamsulosin HCl 0.8 mg 08/02/25 21:00 08/03/25 20:31 Tamsulosin Hcl 0.4 Mg Capsule PO 0.8 mg HS JUSTIN Administration Tramadol HCl 50 mg 08/02/25 04:49 08/03/25 22:16 Tramadol Hcl (*Crx) 50 Mg Tablet PO 50 mg Q6H PRN Administration pain 4-10 Umeclidinium/Vilanterol 1 puff 08/02/25 08:00 08/04/25 07:54 Umeclidinium/Vilanterol 62.5-25 Mcg Ellipta INHALATION 1 puff DAILYRT JUSTIN Administration Radiology Results: ITS Impressions Chest X-Ray 08/01/25 15:23 IMPRESSION: 1. No acute pulmonary findings. Severe emphysema of lungs with chronic pleural thickening of left costophrenic angle. Severe atherosclerotic aorta. Chest/Abdomen/Pelvis CT 08/01/25 18:13 IMPRESSION: 1. Severe emphysematous changes of lungs. Peribronchial thickening of left lung base with mild bronchiectasis as mentioned above. Findings are suggestive of bronchopneumonic changes in the left lower lobe. Stable noncalcified nodules of left lung. Continued follow-up by CT scan at 6 months is recommended. 2. Diffuse abdominal aortic aneurysm measuring 4 cm in diameter at L1-2 and 3.6 cm at L4-5 level. 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 3 severe calcific atherosclerotic disease of the iliac arteries on both sides right worse than the left. The evaluation of pelvis limited by artifacts from bilateral hip arthroplasty. Labs Labs: Laboratory Results - last 24 hr 08/03/25 08/04/25 08/04/25 20:59 05:07 05:18 WBC 6.1 RBC 3.12 L Hgb 8.7 L Hct 29.7 L MCV 95.2 MCH 27.9 MCHC 29.3 L RDW 14.1 Plt Count 157 MPV 9.3 Immature Gran % (Auto) 0.2 Neut % (Auto) 77.3 H Lymph % (Auto) 8.9 L [place] % (Auto) 7.4 Eos % (Auto) 5.9 H Baso % (Auto) 0.3 Lymph # (Auto) 0.54 L [place] # (Auto) 0.5 Eos # (Auto) 0.4 H Baso # (Auto) 0.0 Abs Immat Gran (auto) 0.01 Absolute Neuts (auto) 4.7 Absolute Nucleated RBC 0.000 Band Neutrophils % Not Reportable Nucleated RBC % 0.0 Platelet Estimate Adequate Hypochromasia 1+ Poikilocytosis 1+ Anisocytosis 1+ Christopher Cells 1+ Schistocytes None seen Sodium 135 L Potassium 4.7 Chloride 99 Carbon Dioxide 31 H Anion Gap 5 BUN 58 H D Creatinine 3.74 H Estim Creat Clear Calc 15 Estimated GFR 16 L Glucose 89 Calcium 8.7 Magnesium 2.2 Total Bilirubin 0.4 AST 18 ALT 10 Alkaline Phosphatase 94 Total Protein 6.6 Albumin 3.4 L C. difficile (PCR) Negative Imaging Radiologist's impression: ITS Impressions Chest X-Ray 08/01/25 15:23 IMPRESSION: 1. No acute pulmonary findings. Severe emphysema of lungs with chronic pleural thickening of left costophrenic angle. Severe atherosclerotic aorta. Chest/Abdomen/Pelvis CT 08/01/25 18:13
[2025-08-04] MEDS: SODIUM CHLORIDE 0.9% IV 1,000 ML 100 ML IV CONT ×2 (12:32→21:01)
[2025-08-04 14:17] LABS: Urea Random Urine 591 MG/DL
[2025-08-04 18:02] LABS: Anion Gap 4 mmol/L (4-12); Blood Urea Nitrogen 62 mg/dL (9-20); Calcium 8.6 mg/dL (8.4-10.2); Carbon Dioxide 30 mmol/L (22-30); Chloride 100 mmol/L (98-107); Estimated CRCL calculation 17 ml/min; Estimated Glomerular Filt Rate 19; Glucose 81 mg/dL (65-110); Potassium 5.0 mmol/L (3.4-5.0); Sodium 134 mmol/L (137-145)
[2025-08-04] MEDS: ATORVASTATIN 40 MG TABLET 80 MG PO (21:02)
[2025-08-04] MEDS: TAMSULOSIN HCL 0.4 MG CAPSULE 0.8 MG PO (21:03)
[2025-08-05] VITALS (16 sets, daily range): BP systolic 115–136; BP diastolic 45–53; PULSE 67–94; RESP 14–20; TEMP 36.4–36.6; O2SAT 92–100
[2025-08-05] MEDS: IPRATROPIUM 0.5 MG/ALBUTEROL SULFATE 2.5 MG (BASE) AMPUL.NEB 3 ML INHALATION ×5 (04:23→19:39)
[2025-08-05] MEDS: DOXYCYCLINE IV 100 MG in SODIUM CHLORIDE 0.9% IV 100 ML IVPB ×2 (05:27→17:57)
[2025-08-05] MEDS: UMECLIDINIUM/VILANTEROL 62.5-25 MCG ELLIPTA 1 PUFF INHALATION (07:25)
[2025-08-05] MEDS: POTASSIUM CHLORIDE 10 MEQ ER TABLET PO (09:00)
[2025-08-05] MEDS: SODIUM CHLORIDE 0.9% IV 1,000 ML 100 ML IV CONT (09:00)
[2025-08-05] MEDS: FINASTERIDE 5 MG TABLET PO (09:01)
[2025-08-05] MEDS: ROFLUMILAST 500 MCG TABLET PO (09:03)
[2025-08-05] MEDS: CEFEPIME 1 GM in SODIUM CHLORIDE 0.9% IV 50 ML 100 ML IVPB ×2 (09:03→21:03)
[2025-08-05] MEDS: guaiFENesin 12 HR 600 MG TABCR PO ×2 (09:03→17:57)
[2025-08-05] MEDS: MULTIVITAMINS /C LUTEIN (CENTRUM SILVER) TABLET *BKC 1 TAB PO (09:03)
[2025-08-05] MEDS: FLUTICASONE PROPIONATE 0.05% NA SPR 16 GM BTL (*BKC) 1 SPRAY NASAL ×2 (09:04→21:03)
[2025-08-05 09:25] LABS: Hematocrit 29.8 % (42.0-52.0); Hemoglobin 8.8 g/dL (14.0-18.0); Immature Granulocyte Percent A 0.5 % (0-0.5); Lymphocytes Absolute Auto 0.34 K/mm3 (0.9-3.2); Mean Corpuscular HGB Conc 29.5 g/dl (32-36); Mean Corpuscular Hemoglobin 27.9 pg (26-34); Mean Corpuscular Volume 94.6 fl (80-100); Nucleated Red Blood Cells Absolute Auto 0.000 K/mm3 (0.0-0.012); Nucleated Red Blood Cells Perc 0.0 % (0.0-0.2); Platelet Count Result 152 k/mm3 (150-375); Red Blood Count 3.15 M/mm3 (4.6-6.20); White Blood Count 6.5 K/mm3 (4.5-10.0)
[2025-08-05 09:45] LABS: Hypochromasia 1+
[2025-08-05 09:46] LABS: Burr Cells 1+; Schistocytes None Seen
--- NOTE | 2025-08-05 09:49 | P.CDI_ITS ---
CDI Query Clarification Request BMI: 21.9 Nutritional Diagnostic Statement: Please refer to the comprehensive nutrition assessment for further information. If you agree with diagnosis of Moderate protein calorie malnutrition related to suboptimal nutrition intake in the setting of chronic COPD as evidenced by weight loss 15%/6 months; intakes <75% meals >1 month; moderate muscle wasting and fat loss. Please specify severity if known: * Mild * Moderate * Severe * Other/Unknown <Samra Moeller RN - Last Filed: 08/05/25 09:50> Provider Comments Moderate protein calorie malnutrition <James Morris MD - Last Filed: 08/06/25 18:20>
[2025-08-05 09:50] LABS: Alanine Aminotransferase 12 U/L (6-50); Albumin Level 3.4 g/dL (3.5-5.1); Alkaline Phosphatase 88 U/L (38-126); Anion Gap 3 mmol/L (4-12); Aspartate Amino Transferase 17 U/L (17-59); Bilirubin,Total 0.4 mg/dL (0.2-1.3); Blood Urea Nitrogen 61 mg/dL (9-20); Calcium 8.4 mg/dL (8.4-10.2); Carbon Dioxide 29 mmol/L (22-30); Chloride 102 mmol/L (98-107); Estimated CRCL calculation 17 ml/min; Estimated Glomerular Filt Rate 19; Glucose 135 mg/dL (65-110); Magnesium 2.1 mg/dL (1.6-2.3); Potassium 4.6 mmol/L (3.4-5.0); Sodium 134 mmol/L (137-145); Total Protein 6.7 g/dL (6.3-8.2)
--- NOTE | 2025-08-05 13:24 | PM.IMPN2 ---
Assessment and Plan Assessment and Plan (1) Urinary tract infection due to Pseudomonas aeruginosa: Code(s): N39.0 - Urinary tract infection, site not specified; B96.5 - Pseudomonas (aeruginosa) (mallei) (pseudomallei) as the cause of diseases classified elsewhere Status: Acute (2) Urinary retention with incomplete bladder emptying: Code(s): R33.9 - Retention of urine, unspecified Status: Acute (3) Bronchiectasis: Qualifiers: Bronchiectasis type: uncomplicated Qualified Code(s): J47.9 - Bronchiectasis, uncomplicated Code(s): J47.9 - Bronchiectasis, uncomplicated Status: Acute (4) Chronic respiratory failure with hypoxia, on home oxygen therapy: Code(s): J96.11 - Chronic respiratory failure with hypoxia; Z99.81 - Dependence on supplemental oxygen Status: Acute (5) Chronic kidney disease, stage IV (severe): Code(s): N18.4 - Chronic kidney disease, stage 4 (severe) Status: Chronic Plan This is a 74-year-old male who presented with increased shortness of breath and urinary symptoms. He has been having urinary symptoms for couple of weeks as well as diarrhea for the last month. Reports subjective fever chills fatigue anxiety and abdominal pain. No chest pain. Has history of COPD with 4 L oxygen at baseline. History of DVT/PE on Eliquis. On ED evaluation his vitals were stable. Laboratory workup revealed WBC of 7.3 hemoglobin 10.4 platelet of 216. Chem panel showed sodium 140 potassium 4.5 chloride 100 bicarbonate 35 BUN 37 creatinine 2.5 blood glucose of 113. LFTs were normal. Urinalysis with more than 100 urine WBC. EKG showed with with nonspecific ST-T changes. Chest x-ray with no acute pulmonary findings. Severe emphysema of lungs with chronic pleural thickening of the left costophrenic angle. Severe atherosclerotic aorta noted. CT also demonstrates severe emphysematous changes of the lungs and findings suggestive of bronchopneumonia changes of the left lower lobe. Stable noncalcified nodules of the left lung. 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 UTI recent urine culture as an outpatient basis growing Pseudomonas resistant to all oral antibiotics. IV cefepime started. Repeat urine culture pending BPH and history of urinary retention. Postvoid residual greater than 400 mL. Patient currently on Flomax and Proscar which will be resumed. [place] catheter was placed. Renal ultrasound 07/31/2025 with bilateral simple appearing renal cysts. Nonspecific bladder density correlate for cystitis. Infectious disease consult. Will attempt a void trial closer to discharge CKD stage 4 continue to monitor renal function with mild ALFREDO. Bladder scan at bedside with no retention. Bladder ultrasound reviewed. Gentle IV fluid will be started. Continue to trend creatinine improved with IV fluids. Will stop IV fluid today. Continue to hold Lasix and losartan COPD with chronic hypoxic respiratory failure Bronchiectasis Small area bronchopneumonia left lower lobe. Also added doxycycline for atypical coverage. Continue on DuoNeb scheduled. Sputum culture pending History of Mycobacterium avium complex DVT prophylaxis heparin subQ Code status full code Subjective Date/time seen: 08/05/25 13:24 Interval history: No overnight events. Feeling better. Breathing has improved. Labs reviewed. Review of Systems Review of Systems: All systems reviewed & are unremarkable except as noted in HPI and below Exam Narrative: GENERAL: The patient is well developed, not in acute distress HEENT: Nonicteric sclerae, PERRLA, EOMI. Oropharynx clear. Moist mucous membranes. Conjunctivae appear well perfused. CHEST: Chest wall is nontender. HEART: Regular rate and rhythm without murmur, rubs, or gallops LUNGS: Left basal crackles, no respiratory distress ABDOMEN: Soft, positive bowel sounds, non-tender, no organomegaly. SKIN: No rash, no excessive bruising, petechiae, or purpura. NEUROLOGIC: Cranial nerves II-XII intact, alert and oriented x 3, no gross motor deficits EXTREMITIES: no edema, cyanosis or clubbing [place] in place with cloudy urine in tubing Objective Data Vital Signs Vital Signs: Vital Signs - 24 hr 08/04/25 13:29 08/04/25 14:00 08/04/25 20:00 Temperature 98.1 F Pulse Rate 74 64 68 Respiratory Rate 20 18 20 Blood Pressure 118/57 L Pulse Oximetry 98 99 Oxygen Delivery Nasal Cannula Oxygen Flow Rate 4 08/04/25 20:31 08/04/25 20:31 08/04/25 20:36 Temperature Pulse Rate 67 69 Respiratory Rate 20 20 Blood Pressure Pulse Oximetry 98 Oxygen Delivery Nasal Cannula Oxygen Flow Rate 4 08/04/25 21:02 08/04/25 22:00 08/04/25 23:33 Temperature 98.1 F Pulse Rate 68 68 63 Respiratory Rate 20 20 Blood Pressure 121/57 L Pulse Oximetry 99 Oxygen Delivery Oxygen Flow Rate 08/04/25 23:38 08/05/25 04:24 08/05/25 06:00 Temperature 97.9 F Pulse Rate 64 67 94 Respiratory Rate 20 20 20 Blood Pressure 131/50 L Pulse Oximetry 94 Oxygen Delivery Oxygen Flow Rate 08/05/25 07:25 08/05/25 07:25 08/05/25 07:35 Temperature Pulse Rate 73 71 Respiratory Rate 20 20 Blood Pressure Pulse Oximetry 92 Oxygen Delivery Nasal Cannula Oxygen Flow Rate 4 08/05/25 09:01 08/05/25 11:04 08/05/25 11:13 Temperature Pulse Rate 79 72 76 Respiratory Rate 20 20 Blood Pressure Pulse Oximetry Oxygen Delivery Oxygen Flow Rate Intake/Output Intake/Output: Intake & Output 08/02/25 08/03/25 08/04/25 08/05/25 23:59 23:59 23:59 23:59 Intake Total 1220 3000.0 4788.3 1876 Output Total 1075 300 600 550 Balance 145 2700.0 4188.3 1326 Meds/Results Medications: Active Medications Generic Name Dose Route Start Last Admin Trade Name [place] PRN Reason Stop Dose Admin Acetaminophen 1,000 mg 08/02/25 04:44 08/04/25 09:49 Acetaminophen 500 Mg Tablet PO 1,000 mg Q6H PRN Administration Pain 1-3 or fever Albuterol/Ipratropium 3 ml 08/01/25 20:00 08/05/25 11:04 Ipratropium 0.5 Mg/Albuterol Sulfate 2.5 Mg (Base) Ampul.Neb 3 Ml INHALATION 3 ml Q4HRT JUSTIN Administration Amlodipine Besylate 10 mg 08/02/25 09:00 08/05/25 09:01 Amlodipine Besylate 10 Mg Tablet PO 10 mg DAILY JUSTIN Administration Atorvastatin Calcium 80 mg 08/02/25 21:00 08/04/25 21:02 Atorvastatin 40 Mg Tablet PO 80 mg QHS JUSTIN Administration Carvedilol 25 mg 08/02/25 09:00 08/05/25 09:01 Carvedilol 25 Mg Tablet PO 25 mg Q12H JUSTIN Administration Cilostazol 50 mg 08/02/25 07:30 08/05/25 09:00 Cilostazol 50 Mg Tablet PO 50 mg 0730,1630 JUSTIN Administration Finasteride 5 mg 08/02/25 09:00 08/05/25 09:01 Finasteride 5 Mg Tablet PO 5 mg QAM JUSTIN Administration Fluticasone Propionate 1 spray 08/03/25 11:00 08/05/25 09:04 Fluticasone Propionate 0.05% Na Spr 16 Gm Btl (*Bkc) NASAL 1 spray Q12HR JUSTIN Administration Furosemide 40 mg 08/02/25 09:00 08/04/25 09:18 Furosemide 40 Mg Tablet PO 40 mg On Hold: 08/04/25 11:27 QAM JUSTIN Administration Gabapentin 300 mg 08/02/25 04:44 Gabapentin 300 Mg Capsule PO DAILY PRN neuropathy Guaifenesin 600 mg 08/02/25 09:00 08/05/25 09:03 Guaifenesin 12 Hr 600 Mg Tabcr PO 600 mg BID JUSTIN Administration Heparin Sodium (Porcine) 5,000 units 08/02/25 09:00 08/05/25 09:03 Heparin Sodium 5,000 Units/Ml Vial SUB-Q 5,000 units Q12HR JUSTIN Administration Doxycycline Hyclate 100 mg/ 100 mls @ 100 mls/hr 08/02/25 05:00 08/05/25 05:27 Sodium Chloride IVPB 100 mls/hr Q12H JUSTIN Administration Cefepime HCl 1 gm/ Sodium 50 mls @ 100 mls/hr 08/02/25 09:00 08/05/25 09:03 Chloride IVPB 100 mls/hr Q12H JUSTIN Administration Sodium Chloride 1,000 mls @ 100 mls/hr 08/04/25 10:20 08/05/25 09:00 Normal Saline Iv IV CONT 100 mls/hr .Q10H JUSTIN Administration Loratadine 10 mg 08/02/25 05:06 Loratadine 10 Mg Tablet PO HS PRN allergy symptoms Losartan Potassium 50 mg 08/02/25 09:00 08/04/25 09:18 Losartan Potassium 50 Mg Tablet PO 50 mg On Hold: 08/04/25 11:27 DAILY JUSTIN Administration Multivitamins/Minerals 1 tab 08/02/25 09:00 08/05/25 09:03 Multivitamins /C Lutein (Centrum Silver) Tablet *Bkc PO 1 tab DAILY JUSTIN Administration Phenol 1 spray 08/03/25 10:49 08/03/25 11:24 Phenol/Sod Pheno [place] (*Bkc) MUCOUS MEM 1 spray PRN PRN Administration Sore Throat Polyethylene Glycol 17 gm 08/02/25 04:49 Polyethylene Glycol 3350 17 Gm Powd.Pack PO DAILY PRN Constipation Potassium Chloride 10 meq 08/02/25 08:00 08/05/25 09:00 Potassium Chloride 10 Meq Er Tablet PO 10 meq DAILY@0800 JUSTIN Administration Roflumilast 500 mcg 08/02/25 09:00 08/05/25 09:03 Roflumilast 500 Mcg Tablet PO 500 mcg DAILY JUSTIN Administration Tamsulosin HCl 0.8 mg 08/02/25 21:00 08/04/25 21:03 Tamsulosin Hcl 0.4 Mg Capsule PO 0.8 mg HS JUSTIN Administration Tramadol HCl 50 mg 08/02/25 04:49 08/03/25 22:16 Tramadol Hcl (*Crx) 50 Mg Tablet PO 50 mg Q6H PRN Administration pain 4-10 Umeclidinium/Vilanterol 1 puff 08/02/25 08:00 08/05/25 07:25 Umeclidinium/Vilanterol 62.5-25 Mcg Ellipta INHALATION 1 puff DAILYRT JUSTIN Administration Radiology Results: ITS Impressions Chest X-Ray 08/01/25 15:23 IMPRESSION: 1. No acute pulmonary findings. Severe emphysema of lungs with chronic pleural thickening of left costophrenic angle. Severe atherosclerotic aorta. Chest/Abdomen/Pelvis CT 08/01/25 18:13 IMPRESSION: 1. Severe emphysematous changes of lungs. Peribronchial thickening of left lung base with mild bronchiectasis as mentioned above. Findings are suggestive of bronchopneumonic changes in the left lower lobe. Stable noncalcified nodules of left lung. Continued follow-up by CT scan at 6 months is recommended. 2. Diffuse abdominal aortic aneurysm measuring 4 cm in diameter at L1-2 and 3.6 cm at L4-5 level. 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 3 severe calcific atherosclerotic disease of the iliac arteries on both sides right worse than the left. The evaluation of pelvis limited by artifacts from bilateral hip arthroplasty. Pelvis Ultrasound 08/04/25 15:55 IMPRESSION: [place] catheter within the bladder Labs Labs: Laboratory Results - last 24 hr 08/04/25 08/04/25 08/05/25 13:56 17:33 09:19 WBC 6.5 RBC 3.15 L Hgb 8.8 L Hct 29.8 L MCV 94.6 MCH 27.9 MCHC 29.5 L RDW 14.0 Plt Count 152 MPV 9.7 Immature Gran % (Auto) 0.5 Neut % (Auto) 85.2 H Lymph % (Auto) 5.2 L [place] % (Auto) 5.0 Eos % (Auto) 3.8 Baso % (Auto) 0.3 Lymph # (Auto) 0.34 L [place] # (Auto) 0.3 Eos # (Auto) 0.3 Baso # (Auto) 0.0 Abs Immat Gran (auto) 0.03 Absolute Neuts (auto) 5.6 Absolute Nucleated RBC 0.000 Band Neutrophils % Not Reportable Nucleated RBC % 0.0 Platelet Estimate Adequate Hypochromasia 1+ Christopher Cells 1+ Schistocytes None seen Sodium 134 L 134 L Potassium 5.0 4.6 Chloride 100 102 Carbon Dioxide 30 29 Anion Gap 4 3 L BUN 62 H 61 H Creatinine 3.23 H 3.29 H Estim Creat Clear Calc 17 17 Estimated GFR 19 L 19 L Glucose 81 135 H Calcium 8.6 8.4 Magnesium 2.1 Total Bilirubin 0.4 AST 17 ALT 12 Alkaline Phosphatase 88 Total Protein 6.7 Albumin 3.4 L Ur Random Sodium 33 Ur Random Urea 591 Urine Creatinine 141.9 Imaging Radiologist's impression: ITS Impressions Chest X-Ray 08/01/25 15:23 IMPRESSION: 1. No acute pulmonary findings. Severe emphysema of lungs with chronic pleural thickening of left costophrenic angle. Severe atherosclerotic aorta. Chest/Abdomen/Pelvis CT 08/01/25 18:13
--- NOTE | 2025-08-05 14:41 | WPDIDCN ---
Assessment and Plan Assessment and plan (1) Urinary tract infection due to Pseudomonas aeruginosa: Code(s): N39.0 - Urinary tract infection, site not specified; B96.5 - Pseudomonas (aeruginosa) (mallei) (pseudomallei) as the cause of diseases classified elsewhere Status: Acute Plan ASSESSMENT: 1. PSAR UTI is setting of BPH and penile stricture--continue cefepime 2. chronic respiratory failure on 4L o2 NC at baseline 3. COPD, bronchiectasis, MAC 4. possible pneumonia; MRSA nares neg 5. CKD 6. PE/DVT RECOMMENDATIONS: -agree with cefepime and doxycycline for now -blood cxs NGTD -f/u on sputum cx -4 plex PCR -legionella -strep urine ag -Resp viral panel d/w pharmacy Pt was seen via video telehealth consultation with the assistance of staff. Chart, data and patient info reviewed. Patient was located at [facility] while I was in my [place] office. Pt gave consent. HPI Data of Consult Date/Time: 08/05/25 14:41 Requesting Physician: Judith Gan DO Primary Care Provider: Ilir Stover DO Consult Narrative Reason for consult: abx mgmt Narrative: Freddy Hill is a 74 year old male with pmhx/o BPH, penile stricture, CKD, COPD, chronic respiratory failure on 4L o2 NC at baseline, bronchiectasis, PE/DVT, MAC, presented with PSAR UTI. Pt notes left sided abdominal pain. He also started having productive cough and sore throat at about the same time. Imaging with possible pneumonia. MRSA nares neg. On cefepime and doxycycline. [facility] Past Medical History Medical History (Updated 08/02/25 @ 17:07 by YAMILET Cueto) Venous insufficiency of both lower extremities Chronic kidney disease, stage IV (severe) Secondary hyperparathyroidism, not elsewhere classified 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) Coronary artery disease severe single vessel coronary artery disease with chronic total occlusion of the proximal RCA with [id number] collaterals Chronic kidney disease, stage 4 (severe) Chronic respiratory failure with hypoxia, on home oxygen therapy 4 L nasal cannula Pseudomonas respiratory infection Femoral artery stenosis, left Heart failure with preserved ejection fraction echocardiogram in November 2021 showed normal LV size and function with an EF measured at 66% and impaired diastolic relaxation Chronic anemia Urethral stricture Empyema of left pleural space (05/2021) Pleural fluid grew out strep intermedius and staph hominis. Status post thoracotomy with decortication. Benign prostatic hyperplasia Peripheral vascular disease Status post right carotid endarterectomy. Status post left lower extremity stent. AV block status post Medtronic pacemaker placement Psoriasis Eczema Gastroesophageal reflux disease COPD with emphysema Loculated empyema Obstructive sleep apnea Hypertension Arthritis Surgical History Surgical History (Updated 08/02/25 @ 05:51 by Judith Gan DO) History of cardiac catheterization (01/2024) severe single vessel coronary artery disease with chronic total occlusion of the proximal RCA with [id number] collaterals History of dilation of urethra History of thoracotomy (05/2021) Left thoracotomy with decortication for empyema. History of right-sided carotid endarterectomy History of tonsillectomy Status post peripheral artery angioplasty with insertion of stent Left lower extremity. Status post placement of cardiac pacemaker (06/2020) History of hip replacement Bilaterally with revision History of herniorrhaphy Family History Family History Father Heart disease Heart attack Hypertension Cerebrovascular accident Mother Diabetes mellitus Hypertension Asthma Heart disease Sibling Hypertension Social History Social History (Updated 08/02/25 @ 07:58 by Judith Gan DO) Social History: Patient is and lives alone. He ambulates with a cane. He has 3 daughters. He smoked 2 packs of cigarettes per day for 40 years but quit smoking in 2009. He denies any history of alcohol use or illicit substance use. 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 Surrogate medical decision maker: Michellejuan Schroeder, sister. Code status: Full code. Smoking packs per day: 2 Smoking cigarettes per day: 40.0 Years smoked: 40 Smoking pack-years: 80.00 Smoking status: Former smoker Tobacco type: cigarettes Second hand tobacco smoke exposure: Yes Smoking end date: 08/22/09 Alcohol intake: never Alcohol use details: rarely Substance use: never Substance use type: does not use Lack of Transportation: No Lack of Food: Never True Current Housing: I Have Housing Concerned About Future Housing: No Difficulty Paying Gas/Electric Bills: No Difficulty Paying for Meds: YES Currently Unemployed: No Education: Bachelor's Degree Difficulty w/ Childcare or Family Care: No Living arrangements: alone Additional living arrangements comments: . He has 3 children. 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 Spiritual care concerns: No Agree to blood products: Yes Meds Home Medications and Allergies Home Medications ?Medication ?Instructions ?Recorded ?Confirmed ?Type acetaminophen 500 mg tablet 1,000 mg PO Q6H PRN Mild Pain 06/02/21 08/02/25 History (Scale Score 1-4) dupilumab 300 mg/2 mL subcutaneous 300 mg (2 mL) subcut .COMPLEX #4 mL 11/25/22 08/02/25 Rx syringe (Dupixent) tamsulosin 0.4 mg capsule 0.8 mg PO HS 01/24/23 08/02/25 History albuterol sulfate 90 mcg/actuation 2 puff inhalation Q6H PRN 09/04/24 08/02/25 History aerosol inhaler shortness of breath or wheezing cetirizine 10 mg capsule (Zyrtec) 10 mg PO HS PRN allergy symptoms 09/04/24 08/02/25 History multivitamin-ferrous 1 tablet PO DAILY 09/04/24 08/02/25 History fumarate-folic acid 18 mg-400 mcg tablet (Centrum) tiotropium 2.5 mcg-olodaterol 2.5 See Rx Instructions .Route 12/06/24 08/02/25 Rx mcg/actuation mist for inhalation .COMPLEX #12 grams (Stiolto Respimat) atorvastatin 80 mg tablet (Lipitor) 80 mg PO DAILY 01/29/25 08/02/25 History cilostazol 50 mg tablet 50 mg PO BID 01/29/25 08/02/25 History furosemide 40 mg tablet 40 mg PO QAM 01/29/25 08/02/25 History gabapentin 300 mg capsule 300 mg PO DAILY PRN neuropathy 01/29/25 08/02/25 History tramadol 50 mg tablet 50 mg PO Q6H PRN pain 01/29/25 08/02/25 History triamcinolone acetonide 0.1 % 1 applic topical BID PRN itching 01/29/25 08/02/25 History topical cream amlodipine 5 mg tablet 10 mg PO DAILY 04/30/25 08/02/25 History guaifenesin 600 mg tablet, 600 mg PO BID 04/30/25 08/02/25 History extended release 12 hr (Mucinex) polyethylene glycol 3350 17 gram 17 g PO DAILY PRN constipation 04/30/25 08/02/25 History oral powder packet potassium chloride 10 mEq 10 meq PO DAILY #100 caps 06/07/25 08/02/25 Rx capsule,extended release albuterol sulfate 2.5 mg/3 mL 2.5 mg (3 mL) inhalation Q4-6H PRN 07/10/25 08/02/25 Rx (0.083 %) solution for nebulization SOB #1,260 mL losartan 50 mg tablet 50 mg PO DAILY #90 tabs 07/23/25 08/02/25 Rx roflumilast 500 mcg tablet 500 mcg PO DAILY COPD 1 month #30 07/29/25 08/02/25 Rx tabs carvedilol 25 mg tablet (Coreg) 25 mg PO Q12H 08/02/25 08/02/25 History finasteride 5 mg tablet 5 mg PO DAILY 08/02/25 08/02/25 History Allergies Allergy/AdvReac Type Severity Reaction Status Date / Time oxycodone AdvReac Severe severe Verified 08/02/25 04:47 constipation doxepin AdvReac Intermediate Dizziness Verified 08/03/25 10:55 and Nausea Vital Signs Vital Signs - 24 hr 08/04/25 20:00 08/04/25 20:31 08/04/25 20:31 Temperature Pulse Rate 68 67 Respiratory Rate 20 20 Blood Pressure Pulse Oximetry 99 98 Oxygen Delivery Nasal Cannula Nasal Cannula Oxygen Flow Rate 4 4 08/04/25 20:36 08/04/25 21:02 08/04/25 22:00 Temperature 98.1 F Pulse Rate 69 68 68 Respiratory Rate 20 20 Blood Pressure 121/57 L Pulse Oximetry 99 Oxygen Delivery Oxygen Flow Rate 08/04/25 23:33 08/04/25 23:38 08/05/25 04:24 Temperature Pulse Rate 63 64 67 Respiratory Rate 20 20 20 Blood Pressure Pulse Oximetry Oxygen Delivery Oxygen Flow Rate 08/05/25 06:00 08/05/25 07:25 08/05/25 07:25 Temperature 97.9 F Pulse Rate 94 73 Respiratory Rate 20 20 Blood Pressure 131/50 L Pulse Oximetry 94 92 Oxygen Delivery Nasal Cannula Oxygen Flow Rate 4 08/05/25 07:35 08/05/25 08:00 08/05/25 09:01 Temperature Pulse Rate 71 79 Respiratory Rate 20 Blood Pressure Pulse Oximetry 98 Oxygen Delivery Nasal Cannula Oxygen Flow Rate 4 08/05/25 11:04 08/05/25 11:13 Temperature Pulse Rate 72 76 Respiratory Rate 20 20 Blood Pressure Pulse Oximetry Oxygen Delivery Oxygen Flow Rate Exam Narrative: Up in chair, on 4L o2 NC, non-toxic, NAD breathing comfortably Results Labs 08/05/25 09:19 08/05/25 09:19 Labs: Short CBC 08/05/25 Range/Units 09:19 WBC 6.5 (4.5-10.0) K/mm3 Hgb 8.8 L (14.0-18.0) g/dL Hct 29.8 L (42.0-52.0) % Plt Count 152 (150-375) k/mm3 BMP 08/04/25 08/05/25 17:33 09:19 Sodium 134 L 134 L Potassium 5.0 4.6 Chloride 100 102 Carbon Dioxide 30 29 BUN 62 H 61 H Creatinine 3.23 H 3.29 H Glucose 81 135 H Calcium 8.6 8.4 Liver Function 08/05/25 Range/Units 09:19 Total Bilirubin 0.4 (0.2-1.3) mg/dL AST 17 (17-59) U/L ALT 12 (6-50) U/L Alkaline Phosphatase 88 (38-126) U/L Albumin 3.4 L (3.5-5.1) g/dL
[2025-08-05] MEDS: traMADol HCL (*CRX) 50 MG TABLET PO (17:56)
[2025-08-05] MEDS: ATORVASTATIN 40 MG TABLET 80 MG PO (21:00)
[2025-08-05] MEDS: TAMSULOSIN HCL 0.4 MG CAPSULE 0.8 MG PO (21:02)
[2025-08-06] VITALS (16 sets, daily range): BP systolic 120–134; BP diastolic 44–53; PULSE 70–87; RESP 15–20; TEMP 36.3–36.8; O2SAT 96–98
[2025-08-06 05:21] LABS: Hematocrit 25.9 % (42.0-52.0); Hemoglobin 7.4 g/dL (14.0-18.0); Immature Granulocyte Percent A 0.6 % (0-0.5); Lymphocytes Absolute Auto 0.51 K/mm3 (0.9-3.2); Mean Corpuscular HGB Conc 28.6 g/dl (32-36); Mean Corpuscular Hemoglobin 28.1 pg (26-34); Mean Corpuscular Volume 98.5 fl (80-100); Nucleated Red Blood Cells Absolute Auto 0.000 K/mm3 (0.0-0.012); Nucleated Red Blood Cells Perc 0.0 % (0.0-0.2); Platelet Count Result 127 k/mm3 (150-375); Red Blood Count 2.63 M/mm3 (4.6-6.20); White Blood Count 4.8 K/mm3 (4.5-10.0)
[2025-08-06] MEDS: DOXYCYCLINE IV 100 MG in SODIUM CHLORIDE 0.9% IV 100 ML IVPB ×2 (05:21→18:20)
[2025-08-06 05:30] LABS: Alanine Aminotransferase 10 U/L (6-50); Albumin Level 2.9 g/dL (3.5-5.1); Alkaline Phosphatase 74 U/L (38-126); Anion Gap 5 mmol/L (4-12); Aspartate Amino Transferase 23 U/L (17-59); Bilirubin,Total 0.5 mg/dL (0.2-1.3); Blood Urea Nitrogen 62 mg/dL (9-20); Calcium 7.9 mg/dL (8.4-10.2); Carbon Dioxide 21 mmol/L (22-30); Chloride 106 mmol/L (98-107); Estimated CRCL calculation 22 ml/min; Estimated Glomerular Filt Rate 25; Glucose 84 mg/dL (65-110); Magnesium 2.3 mg/dL (1.6-2.3); Potassium 4.9 mmol/L (3.4-5.0); Sodium 132 mmol/L (137-145); Total Protein 6.0 g/dL (6.3-8.2)
[2025-08-06 05:47] LABS: Anisocytosis 1+; Burr Cells 1+; Microcytosis 1+ (NORMAL); Ovalocytes 1+; Schistocytes None Seen
[2025-08-06] MEDS: IPRATROPIUM 0.5 MG/ALBUTEROL SULFATE 2.5 MG (BASE) AMPUL.NEB 3 ML INHALATION ×5 (07:45→23:51)
[2025-08-06] MEDS: UMECLIDINIUM/VILANTEROL 62.5-25 MCG ELLIPTA 1 PUFF INHALATION (08:47)
[2025-08-06] MEDS: CEFEPIME 1 GM in SODIUM CHLORIDE 0.9% IV 50 ML 100 ML IVPB ×2 (09:12→20:08)
[2025-08-06] MEDS: MULTIVITAMINS /C LUTEIN (CENTRUM SILVER) TABLET *BKC 1 TAB PO (09:12)
[2025-08-06] MEDS: ROFLUMILAST 500 MCG TABLET PO (09:12)
[2025-08-06] MEDS: guaiFENesin 12 HR 600 MG TABCR PO ×2 (09:12→16:11)
[2025-08-06] MEDS: POTASSIUM CHLORIDE 10 MEQ ER TABLET PO (09:13)
[2025-08-06] MEDS: FLUTICASONE PROPIONATE 0.05% NA SPR 16 GM BTL (*BKC) 1 SPRAY NASAL ×2 (09:13→20:08)
[2025-08-06] MEDS: FINASTERIDE 5 MG TABLET PO (09:16)
--- NOTE | 2025-08-06 10:02 | P.PNINF_ITS ---
Progress Note: A&P Assessment and Plan (1) Urinary tract infection due to Pseudomonas aeruginosa: Code(s): N39.0 - Urinary tract infection, site not specified; B96.5 - Pseudomonas (aeruginosa) (mallei) (pseudomallei) as the cause of diseases classified elsewhere Status: Acute Plan ASSESSMENT: 1. PSAR UTI is setting of BPH and penile stricture--continue cefepime 2. chronic respiratory failure on 4L o2 NC at baseline 3. COPD, bronchiectasis, MAC 4. possible pneumonia; MRSA nares neg 5. CKD 6. PE/DVT RECOMMENDATIONS: -agree with cefepime and doxycycline for now -blood cxs NGTD -f/u on sputum cx -4 plex PCR -legionella -strep urine ag -Resp viral panel d/w pharmacy Pt was seen via video telehealth consultation with the assistance of staff. Chart, data and patient info reviewed. Patient was located at [facility] while I was in my [place] office. Pt gave consent. Subjective Date/time seen: 08/06/25 10:02 Interval history: no fevers no leukocytosis Exam Narrative: on 4L O2 NC NAD, non-toxic abd soft Objective Data Vital Signs Vital Signs: Vital Signs - 24 hr 08/05/25 11:04 08/05/25 11:13 08/05/25 14:00 Temperature 97.6 F Pulse Rate 72 76 76 Respiratory Rate 20 20 14 Blood Pressure 115/45 L Pulse Oximetry 100 Oxygen Delivery Oxygen Flow Rate 08/05/25 15:23 08/05/25 15:32 08/05/25 19:40 Temperature Pulse Rate 76 76 86 Respiratory Rate 20 20 16 Blood Pressure Pulse Oximetry Oxygen Delivery Oxygen Flow Rate 08/05/25 19:42 08/05/25 20:00 08/05/25 20:16 Temperature 97.7 F Pulse Rate 81 75 74 Respiratory Rate 16 20 20 Blood Pressure 136/53 L Pulse Oximetry 98 98 Oxygen Delivery Nasal Cannula Oxygen Flow Rate 4 08/05/25 21:00 08/06/25 03:51 08/06/25 07:46 Temperature 97.3 F L Pulse Rate 75 72 70 Respiratory Rate 20 18 Blood Pressure 129/52 L Pulse Oximetry 96 96 Oxygen Delivery Nasal Cannula Oxygen Flow Rate 4 08/06/25 07:46 08/06/25 07:55 08/06/25 08:49 Temperature Pulse Rate 70 72 70 Respiratory Rate 18 18 18 Blood Pressure Pulse Oximetry Oxygen Delivery Oxygen Flow Rate Intake/Output Intake/Output: Intake & Output 08/03/25 08/04/25 08/05/25 08/06/25 23:59 23:59 23:59 23:59 Intake Total 3000.0 4788.3 2576 290 Output Total 407 055 4711 400 Balance 2700.0 4188.3 1376 -110 Meds/Results Medications: Active Medications Generic Name Dose Route Start Last Admin Trade Name Freq PRN Reason Stop Dose Admin Acetaminophen 1,000 mg 08/02/25 04:44 08/04/25 09:49 Acetaminophen 500 Mg Tablet PO 1,000 mg Q6H PRN Administration Pain 1-3 or fever Albuterol/Ipratropium 3 ml 08/01/25 20:00 08/06/25 09:12 Ipratropium 0.5 Mg/Albuterol Sulfate 2.5 Mg (Base) Ampul.Neb 3 Ml INHALATION Not Given Q4HRT JUSTIN Amlodipine Besylate 10 mg 08/02/25 09:00 08/06/25 09:13 Amlodipine Besylate 10 Mg Tablet PO 10 mg DAILY JUSTIN Administration Atorvastatin Calcium 80 mg 08/02/25 21:00 08/05/25 21:00 Atorvastatin 40 Mg Tablet PO 80 mg QHS JUSTIN Administration Carvedilol 25 mg 08/02/25 09:00 08/06/25 09:12 Carvedilol 25 Mg Tablet PO 25 mg Q12H JUSTIN Administration Cilostazol 50 mg 08/02/25 07:30 08/06/25 09:16 Cilostazol 50 Mg Tablet PO 50 mg 0730,1630 JUSTIN Administration Finasteride 5 mg 08/02/25 09:00 08/06/25 09:16 Finasteride 5 Mg Tablet PO 5 mg QAM JUSTIN Administration Fluticasone Propionate 1 spray 08/03/25 11:00 08/06/25 09:13 Fluticasone Propionate 0.05% Na Spr 16 Gm Btl (*Bkc) NASAL 1 spray Q12HR JUSTIN Administration Furosemide 40 mg 08/02/25 09:00 08/04/25 09:18 Furosemide 40 Mg Tablet PO 40 mg On Hold: 08/04/25 11:27 QAM JUSTIN Administration Gabapentin 300 mg 08/02/25 04:44 Gabapentin 300 Mg Capsule PO DAILY PRN neuropathy Guaifenesin 600 mg 08/02/25 09:00 08/06/25 09:12 Guaifenesin 12 Hr 600 Mg Tabcr PO 600 mg BID JUSTIN Administration Heparin Sodium (Porcine) 5,000 units 08/02/25 09:00 08/06/25 09:13 Heparin Sodium 5,000 Units/Ml Vial SUB-Q 5,000 units Q12HR JUSTIN Administration Doxycycline Hyclate 100 mg/ 100 mls @ 100 mls/hr 08/02/25 05:00 08/06/25 05: 21 Sodium Chloride IVPB 100 mls/hr Q12H JUSTIN Administration Cefepime HCl 1 gm/ Sodium 50 mls @ 100 mls/hr 08/02/25 09:00 08/06/25 09:12 Chloride IVPB 100 mls/hr Q12H JUSTIN Administration Loratadine 10 mg 08/02/25 05:06 Loratadine 10 Mg Tablet PO HS PRN allergy symptoms Losartan Potassium 50 mg 08/02/25 09:00 08/04/25 09:18 Losartan Potassium 50 Mg Tablet PO 50 mg On Hold: 08/04/25 11:27 DAILY JUSTIN Administration Multivitamins/Minerals 1 tab 08/02/25 09:00 08/06/25 09:12 Multivitamins /C Lutein (Centrum Silver) Tablet *Bkc PO 1 tab DAILY JUSTIN Administration Phenol 1 spray 08/03/25 10:49 08/03/25 11:24 Phenol/Sod Pheno [place] (*Bkc) MUCOUS MEM 1 spray PRN PRN Administration Sore Throat Polyethylene Glycol 17 gm 08/02/25 04:49 Polyethylene Glycol 3350 17 Gm Powd.Pack PO DAILY PRN Constipation Potassium Chloride 10 meq 08/02/25 08:00 08/06/25 09:13 Potassium Chloride 10 Meq Er Tablet PO 10 meq DAILY@0800 JUSTIN Administration Roflumilast 500 mcg 08/02/25 09:00 08/06/25 09:12 Roflumilast 500 Mcg Tablet PO 500 mcg DAILY JUSTIN Administration Tamsulosin HCl 0.8 mg 08/02/25 21:00 08/05/25 21:02 Tamsulosin Hcl 0.4 Mg Capsule PO 0.8 mg HS JUSTIN Administration Tramadol HCl 50 mg 08/02/25 04:49 08/05/25 17:56 Tramadol Hcl (*Crx) 50 Mg Tablet PO 50 mg Q6H PRN Administration pain 4-10 Umeclidinium/Vilanterol 1 puff 08/02/25 08:00 08/06/25 08:47 Umeclidinium/Vilanterol 62.5-25 Mcg Ellipta INHALATION 1 puff DAILYRT JUSTIN Administration Radiology Results: ITS Impressions Chest X-Ray 08/01/25 15:23 IMPRESSION: 1. No acute pulmonary findings. Severe emphysema of lungs with chronic pleural thickening of left costophrenic angle. Severe atherosclerotic aorta. Chest/Abdomen/Pelvis CT 08/01/25 18:13 IMPRESSION: 1. Severe emphysematous changes of lungs. Peribronchial thickening of left lung base with mild bronchiectasis as mentioned above. Findings are suggestive of bronchopneumonic changes in the left lower lobe. Stable noncalcified nodules of left lung. Continued follow-up by CT scan at 6 months is recommended. 2. Diffuse abdominal aortic aneurysm measuring 4 cm in diameter at L1-2 and 3.6 cm at L4-5 level. 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 3 severe calcific atherosclerotic disease of the iliac arteries on both sides right worse than the left. The evaluation of pelvis limited by artifacts from bilateral hip arthroplasty. Pelvis Ultrasound 08/04/25 15:55 IMPRESSION: [place] catheter within the bladder Labs Labs: Laboratory Results - last 24 hr 08/06/25 04:48 WBC 4.8 RBC 2.63 L Hgb 7.4 L Hct 25.9 L MCV 98.5 MCH 28.1 MCHC 28.6 L RDW 13.9 Plt Count 127 L MPV 10.3 Immature Gran % (Auto) 0.6 H Neut % (Auto) 74.7 H Lymph % (Auto) 10.6 L [place] % (Auto) 8.5 Eos % (Auto) 5.2 H Baso % (Auto) 0.4 Lymph # (Auto) 0.51 L [place] # (Auto) 0.4 Eos # (Auto) 0.3 Baso # (Auto) 0.0 Abs Immat Gran (auto) 0.03 Absolute Neuts (auto) 3.6 Absolute Nucleated RBC 0.000 Band Neutrophils % Not Reportable Nucleated RBC % 0.0 Platelet Estimate Decreased Anisocytosis 1+ Microcytosis 1+ Ovalocytes 1+ Christopher Cells 1+ Schistocytes None seen Sodium 132 L Potassium 4.9 Chloride 106 Carbon Dioxide 21 L Anion Gap 5 BUN 62 H Creatinine 2.50 H Estim Creat Clear Calc 22 Estimated GFR 25 L Glucose 84 Calcium 7.9 L Magnesium 2.3 Total Bilirubin 0.5 AST 23 ALT 10 Alkaline Phosphatase 74 Total Protein 6.0 L Albumin 2.9 L
--- NOTE | 2025-08-06 13:32 | P.PNIM_ITS ---
Assessment and Plan Assessment and Plan (1) Urinary tract infection due to Pseudomonas aeruginosa: Code(s): N39.0 - Urinary tract infection, site not specified; B96.5 - Pseudomonas (aeruginosa) (mallei) (pseudomallei) as the cause of diseases classified elsewhere Status: Acute (2) Urinary retention with incomplete bladder emptying: Code(s): R33.9 - Retention of urine, unspecified Status: Acute (3) Bronchiectasis: Qualifiers: Bronchiectasis type: uncomplicated Qualified Code(s): J47.9 - Bronchiectasis, uncomplicated Code(s): J47.9 - Bronchiectasis, uncomplicated Status: Acute (4) Chronic respiratory failure with hypoxia, on home oxygen therapy: Code(s): J96.11 - Chronic respiratory failure with hypoxia; Z99.81 - Dependence on supp lemental oxygen Status: Acute (5) Chronic kidney disease, stage IV (severe): Code(s): N18.4 - Chronic kidney disease, stage 4 (severe) Status: Chronic Plan This is a 74-year-old male who presented with increased shortness of breath and urinary symptoms. He has been having urinary symptoms for couple of weeks as well as diarrhea for the last month. Reports subjective fever chills fatigue anxiety and abdominal pain. No chest pain. Has history of COPD with 4 L oxygen at baseline. History of DVT/PE on Eliquis. On ED evaluation his vitals were stable. Laboratory workup revealed WBC of 7.3 hemoglobin 10.4 platelet of 216. Chem panel showed sodium 140 potassium 4.5 chloride 100 bicarbonate 35 BUN 37 creatinine 2.5 blood glucose of 113. LFTs were normal. Urinalysis with more than 100 urine WBC. EKG showed with with nonspecific ST-T changes. Chest x-ray with no acute pulmonary findings. Severe emphysema of lungs with chronic pleural thickening of the left costophrenic angle. Severe atherosclerotic aorta noted. CT also demonstrates severe emphysematous changes of the lungs and findings suggestive of bronchopneumonia changes of the left lower lobe. Stable noncalcified nodules of the left lung. 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 UTI recent urine culture as an outpatient basis growing Pseudomonas resistant to all oral antibiotics. IV cefepime started. Repeat urine culture pending with some growth observed. IV cefepime tentative 7 days concludes coming . Id on board will await for the final recommendation BPH and history of urinary retention. Postvoid residual greater than 400 mL. Patient currently on Flomax and Proscar which will be resumed. [place] catheter was placed. Renal ultrasound 07/31/2025 with bilateral simple appearing renal cysts. Nonspecific bladder density correlate for cystitis. Infectious disease consult. Will attempt a void trial today CKD stage 4 continue to monitor renal function with mild ALFREDO. Bladder scan at bedside with no retention. Bladder ultrasound reviewed. Gentle IV fluid will be started. Continue to trend creatinine improved with IV fluids. Subsequently IV fluids stopped. Continue to hold Lasix and losartan COPD with chronic hypoxic respiratory failure Bronchiectasis Small area bronchopneumonia left lower lobe. Also added doxycycline for atypical coverage. Continue on DuoNeb scheduled. Sputum culture preliminary with rare Gram-positive cocci History of Mycobacterium avium complex DVT prophylaxis heparin subQ Code status full code Subjective Date/time seen: 08/06/25 13:32 Interval history: No overnight events. Feeling better each day. Breathing has improved. Labs reviewed. Review of Systems Review of Systems: All systems reviewed & are unremarkable except as noted in HPI and below Exam Narrative: GENERAL: The patient is well developed, not in acute distress HEENT: Nonicteric sclerae, PERRLA, EOMI. Oropharynx clear. Moist mucous membranes. Conjunctivae appear well perfused. CHEST: Chest wall is nontender. HEART: Regular rate and rhythm without murmur, rubs, or gallops LUNGS: Left basal crackles, no respiratory distress ABDOMEN: Soft, positive bowel sounds, non-tender, no organomegaly. SKIN: No rash, no excessive bruising, petechiae, or purpura. NEUROLOGIC: Cranial nerves II-XII intact, alert and oriented x 3, no gross motor deficits EXTREMITIES: no edema, cyanosis or clubbing [place] in place with cloudy urine in tubing Objective Data Vital Signs Vital Signs: Vital Signs - 24 hr 08/05/25 14:00 08/05/25 15:23 08/05/25 15:32 Temperature 97.6 F Pulse Rate 76 76 76 Respiratory Rate 14 20 20 Blood Pressure 115/45 L Pulse Oximetry 100 Oxygen Delivery Oxygen Flow Rate 08/05/25 19:40 08/05/25 19:42 08/05/25 20:00 Temperature Pulse Rate 86 81 75 Respiratory Rate 16 16 20 Blood Pressure Pulse Oximetry 98 Oxygen Delivery Nasal Cannula Oxygen Flow Rate 4 08/05/25 20:16 08/05/25 21:00 08/06/25 03:51 Temperature 97.7 F 97.3 F L Pulse Rate 74 75 72 Respiratory Rate 20 20 Blood Pressure 136/53 L 129/52 L Pulse Oximetry 98 96 Oxygen Delivery Oxygen Flow Rate 08/06/25 07:46 08/06/25 07:46 08/06/25 07:55 Temperature Pulse Rate 70 70 72 Respiratory Rate 18 18 18 Blood Pressure Pulse Oximetry 96 Oxygen Delivery Nasal Cannula Oxygen Flow Rate 4 08/06/25 08:00 08/06/25 08:49 08/06/25 11:22 Temperature Pulse Rate 70 87 Respiratory Rate 18 18 Blood Pressure Pulse Oximetry 96 Oxygen Delivery Nasal Cannula Oxygen Flow Rate 4 08/06/25 11:33 Temperature Pulse Rate 76 Respiratory Rate 18 Blood Pressure Pulse Oximetry Oxygen Delivery Oxygen Flow Rate Intake/Output Intake/Output: Intake & Output 08/03/25 08/04/25 08/05/25 08/06/25 23:59 23:59 23:59 23:59 Intake Total 3000.0 4788.3 2576 530 Output Total 481 977 5420 400 Balance 2700.0 4188.3 1376 130 Meds/Results Medications: Active Medications Generic Name Dose Route Start Last Admin Trade Name Freq PRN Reason Stop Dose Admin Acetaminophen 1,000 mg 08/02/25 04:44 08/04/25 09:49 Acetaminophen 500 Mg Tablet PO 1,000 mg Q6H PRN Administration Pain 1-3 or fever Albuterol/Ipratropium 3 ml 08/01/25 20:00 08/06/25 11:21 Ipratropium 0.5 Mg/Albuterol Sulfate 2.5 Mg (Base) Ampul.Neb 3 Ml INHALATION 3 ml Q4HRT JUSTIN Administration Amlodipine Besylate 10 mg 08/02/25 09:00 08/06/25 09:13 Amlodipine Besylate 10 Mg Tablet PO 10 mg DAILY JUSTIN Administration Atorvastatin Calcium 80 mg 08/02/25 21:00 08/05/25 21:00 Atorvastatin 40 Mg Tablet PO 80 mg QHS JUSTIN Administration Carvedilol 25 mg 08/02/25 09:00 08/06/25 09:12 Carvedilol 25 Mg Tablet PO 25 mg Q12H JUSTIN Administration Cilostazol 50 mg 08/02/25 07:30 08/06/25 09:16 Cilostazol 50 Mg Tablet PO 50 mg 0730,1630 JUSTIN Administration Finasteride 5 mg 08/02/25 09:00 08/06/25 09:16 Finasteride 5 Mg Tablet PO 5 mg QAM JUSTIN Administration Fluticasone Propionate 1 spray 08/03/25 11:00 08/06/25 09:13 Fluticasone Propionate 0.05% Na Spr 16 Gm Btl (*Bkc) NASAL 1 spray Q12HR JUSTIN Administration Furosemide 40 mg 08/02/25 09:00 08/04/25 09:18 Furosemide 40 Mg Tablet PO 40 mg On Hold: 08/04/25 11:27 QAM JUSTIN Administration Gabapentin 300 mg 08/02/25 04:44 Gabapentin 300 Mg Capsule PO DAILY PRN neuropathy Guaifenesin 600 mg 08/02/25 09:00 08/06/25 09:12 Guaifenesin 12 Hr 600 Mg Tabcr PO 600 mg BID JUSTIN Administration Heparin Sodium (Porcine) 5,000 units 08/02/25 09:00 08/06/25 09:13 Heparin Sodium 5,000 Units/Ml Vial SUB-Q 5,000 units Q12HR JUSTIN Administration Doxycycline Hyclate 100 mg/ 100 mls @ 100 mls/hr 08/02/25 05:00 08/06/25 05:21 Sodium Chloride IVPB 100 mls/hr Q12H JUSTIN Administration Cefepime HCl 1 gm/ Sodium 50 mls @ 100 mls/hr 08/02/25 09:00 08/06/25 09:12 Chloride IVPB 100 mls/hr Q12H JUSTIN Administration Loratadine 10 mg 08/02/25 05:06 Loratadine 10 Mg Tablet PO HS PRN allergy symptoms Losartan Potassium 50 mg 08/02/25 09:00 08/04/25 09:18 Losartan Potassium 50 Mg Tablet PO 50 mg On Hold: 08/04/25 11:27 DAILY JUSTIN Administration Multivitamins/Minerals 1 tab 08/02/25 09:00 08/06/25 09:12 Multivitamins /C Lutein (Centrum Silver) Tablet *Bkc PO 1 tab DAILY JUSTIN Administration Phenol 1 spray 08/03/25 10:49 08/03/25 11:24 Phenol/Sod Pheno [place] (*Bkc) MUCOUS MEM 1 spray PRN PRN Administration Sore Throat Polyethylene Glycol 17 gm 08/02/25 04:49 Polyethylene Glycol 3350 17 Gm Powd.Pack PO DAILY PRN Constipation Potassium Chloride 10 meq 08/02/25 08:00 08/06/25 09:13 Potassium Chloride 10 Meq Er Tablet PO 10 meq DAILY@0800 JUSTIN Administration Roflumilast 500 mcg 08/02/25 09:00 08/06/25 09:12 Roflumilast 500 Mcg Tablet PO 500 mcg DAILY JUSTIN Administration Tamsulosin HCl 0.8 mg 08/02/25 21:00 08/05/25 21:02 Tamsulosin Hcl 0.4 Mg Capsule PO 0.8 mg HS JUSTIN Administration Tramadol HCl 50 mg 08/02/25 04:49 08/05/25 17:56 Tramadol Hcl (*Crx) 50 Mg Tablet PO 50 mg Q6H PRN Administration pain 4-10 Umeclidinium/Vilanterol 1 puff 08/02/25 08:00 08/06/25 08:47 Umeclidinium/Vilanterol 62.5-25 Mcg Ellipta INHALATION 1 puff DAILYRT JUSTIN Administration Radiology Results: ITS Impressions Chest X-Ray 08/01/25 15:23 IMPRESSION: 1. No acute pulmonary findings. Severe emphysema of lungs with chronic pleural thickening of left costophrenic angle. Severe atherosclerotic aorta. Chest/Abdomen/Pelvis CT 08/01/25 18:13 IMPRESSION: 1. Severe emphysematous changes of lungs. Peribronchial thickening of left lung base with mild bronchiectasis as mentioned above. Findings are suggestive of bronchopneumonic changes in the left lower lobe. Stable noncalcified nodules of left lung. Continued follow-up by CT scan at 6 months is recommended. 2. Diffuse abdominal aortic aneurysm measuring 4 cm in diameter at L1-2 and 3.6 cm at L4-5 level. 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 3 severe calcific atherosclerotic disease of the iliac arteries on both sides right worse than the left. The evaluation of pelvis limited by artifacts from bilateral hip arthroplasty. Pelvis Ultrasound 08/04/25 15:55 IMPRESSION: [place] catheter within the bladder Labs Labs: Laboratory Results - last 24 hr 08/06/25 04:48 WBC 4.8 RBC 2.63 L Hgb 7.4 L Hct 25.9 L MCV 98.5 MCH 28.1 MCHC 28.6 L RDW 13.9 Plt Count 127 L MPV 10.3 Immature Gran % (Auto) 0.6 H Neut % (Auto) 74.7 H Lymph % (Auto) 10.6 L [place] % (Auto) 8.5 Eos % (Auto) 5.2 H Baso % (Auto) 0.4 Lymph # (Auto) 0.51 L [place] # (Auto) 0.4 Eos # (Auto) 0.3 Baso # (Auto) 0.0 Abs Immat Gran (auto) 0.03 Absolute Neuts (auto) 3.6 Absolute Nucleated RBC 0.000 Band Neutrophils % Not Reportable Nucleated RBC % 0.0 Platelet Estimate Decreased Anisocytosis 1+ Microcytosis 1+ Ovalocytes 1+ [place] Cells 1+ Schistocytes None seen Sodium 132 L Potassium 4.9 Chloride 106 Carbon Dioxide 21 L Anion Gap 5 BUN 62 H Creatinine 2.50 H Estim Creat Clear Calc 22 Estimated GFR 25 L Glucose 84 Calcium 7.9 L Magnesium 2.3 Total Bilirubin 0.5 AST 23 ALT 10 Alkaline Phosphatase 74 Total Protein 6.0 L Albumin 2.9 L Imaging Radiologist's impression: ITS Impressions Chest X-Ray 08/01/25 15:23 IMPRESSION: 1. No acute pulmonary findings. Severe emphysema of lungs with chronic pleural thickening of left costophrenic angle. Severe atherosclerotic aorta. Chest/Abdomen/Pelvis CT 08/01/25 18:13
[2025-08-06] MEDS: ACETAMINOPHEN 500 MG TABLET 1000 MG PO (16:11)
[2025-08-06] MEDS: ATORVASTATIN 40 MG TABLET 80 MG PO (20:09)
[2025-08-06] MEDS: TAMSULOSIN HCL 0.4 MG CAPSULE 0.8 MG PO (20:10)
[2025-08-07] VITALS (15 sets, daily range): BP systolic 113–141; BP diastolic 56–68; PULSE 68–85; RESP 15–20; TEMP 36.3–36.9; O2SAT 90–98
[2025-08-07] MEDS: IPRATROPIUM 0.5 MG/ALBUTEROL SULFATE 2.5 MG (BASE) AMPUL.NEB 3 ML INHALATION ×4 (04:10→22:05)
[2025-08-07] MEDS: DOXYCYCLINE IV 100 MG in SODIUM CHLORIDE 0.9% IV 100 ML IVPB (04:12)
[2025-08-07 05:36] LABS: Hematocrit 26.9 % (42.0-52.0); Hemoglobin 7.9 g/dL (14.0-18.0); Immature Granulocyte Percent A 0.2 % (0-0.5); Lymphocytes Absolute Auto 0.52 K/mm3 (0.9-3.2); Mean Corpuscular HGB Conc 29.4 g/dl (32-36); Mean Corpuscular Hemoglobin 28.0 pg (26-34); Mean Corpuscular Volume 95.4 fl (80-100); Nucleated Red Blood Cells Absolute Auto 0.000 K/mm3 (0.0-0.012); Nucleated Red Blood Cells Perc 0.0 % (0.0-0.2); Platelet Count Result 133 k/mm3 (150-375); Red Blood Count 2.82 M/mm3 (4.6-6.20); White Blood Count 5.1 K/mm3 (4.5-10.0)
[2025-08-07 06:04] LABS: Basophilic Stippling Occasional; Hypochromasia 1+
[2025-08-07 06:05] LABS: Anisocytosis 1+; Burr Cells 1+; Ovalocytes 1+; Schistocytes Occasional
[2025-08-07 06:09] LABS: Alanine Aminotransferase 12 U/L (6-50); Albumin Level 3.0 g/dL (3.5-5.1); Alkaline Phosphatase 91 U/L (38-126); Anion Gap 5 mmol/L (4-12); Aspartate Amino Transferase 20 U/L (17-59); Bilirubin,Total 0.3 mg/dL (0.2-1.3); Blood Urea Nitrogen 57 mg/dL (9-20); Calcium 8.4 mg/dL (8.4-10.2); Carbon Dioxide 23 mmol/L (22-30); Chloride 107 mmol/L (98-107); Estimated CRCL calculation 22 ml/min; Estimated Glomerular Filt Rate 25; Glucose 83 mg/dL (65-110); Magnesium 2.0 mg/dL (1.6-2.3); Potassium 5.0 mmol/L (3.4-5.0); Sodium 135 mmol/L (137-145); Total Protein 6.1 g/dL (6.3-8.2)
--- NOTE | 2025-08-07 08:23 | P.PNIM_ITS ---
Assessment and Plan Assessment and Plan (1) Urinary tract infection due to Pseudomonas aeruginosa: Code(s): N39.0 - Urinary tract infection, site not specified; B96.5 - Pseudomonas (aeruginosa) (mallei) (pseudomallei) as the cause of diseases classified elsewhere Status: Acute (2) Urinary retention with incomplete bladder emptying: Code(s): R33.9 - Retention of urine, unspecified Status: Acute (3) Bronchiectasis: Qualifiers: Bronchiectasis type: uncomplicated Qualified Code(s): J47.9 - Bronchiectasis, uncomplicated Code(s): J47.9 - Bronchiectasis, uncomplicated Status: Acute (4) Chronic respiratory failure with hypoxia, on home oxygen therapy: Code(s): J96.11 - Chronic respiratory failure with hypoxia; Z99.81 - Dependence on supp lemental oxygen Status: Acute (5) Chronic kidney disease, stage IV (severe): Code(s): N18.4 - Chronic kidney disease, stage 4 (severe) Status: Chronic Plan This is a 74-year-old male who presented with increased shortness of breath and urinary symptoms. He has been having urinary symptoms for couple of weeks as well as diarrhea for the last month. Reports subjective fever chills fatigue anxiety and abdominal pain. No chest pain. Has history of COPD with 4 L oxygen at baseline. History of DVT/PE on Eliquis. On ED evaluation his vitals were stable. Laboratory workup revealed WBC of 7.3 hemoglobin 10.4 platelet of 216. Chem panel showed sodium 140 potassium 4.5 chloride 100 bicarbonate 35 BUN 37 creatinine 2.5 blood glucose of 113. LFTs were normal. Urinalysis with more than 100 urine WBC. EKG showed with with nonspecific ST-T changes. Chest x-ray with no acute pulmonary findings. Severe emphysema of lungs with chronic pleural thickening of the left costophrenic angle. Severe atherosclerotic aorta noted. CT also demonstrates severe emphysematous changes of the lungs and findings suggestive of bronchopneumonia changes of the left lower lobe. Stable noncalcified nodules of the left lung. 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 UTI recent urine culture as an outpatient basis growing Pseudomonas resistant to all oral antibiotics. IV cefepime started. Repeat urine culture with Pseudomonas aeruginosa. IV cefepime tentative 7 days concludes coming . Id on board will await for the final recommendation. Plan to complete course of treatment BPH and history of urinary retention. Postvoid residual greater than 400 mL. Patient currently on Flomax and Proscar which will be resumed. [place] catheter was placed. Renal ultrasound 07/31/2025 with bilateral simple appearing renal cysts. Nonspecific bladder density correlate for cystitis. Infectious disease consult. Void trial 08/06/2025 with successful removal of [place] catheter. Will do bladder scan to rule out excessive postvoid residual CKD stage 4 continue to monitor renal function with mild ALFREDO. Bladder scan at bedside with no retention. Bladder ultrasound reviewed. Gentle IV fluid will be started. Continue to trend creatinine improved with IV fluids. Subsequently IV fluids stopped. Continue to hold Lasix and losartan COPD with chronic hypoxic respiratory failure Bronchiectasis Small area bronchopneumonia left lower lobe. Also added doxycycline for atypical coverage. Continue on DuoNeb scheduled. Sputum culture preliminary with rare Gram-positive cocci History of Mycobacterium avium complex DVT prophylaxis heparin subQ Code status full code Subjective Date/time seen: 08/07/25 08:23 Interval history: No overnight events. Catheter has been removed and able to pee. Remains afebrile. Getting IV antibiotics Review of Systems Review of Systems: All systems reviewed & are unremarkable except as noted in HPI and below Exam Narrative: GENERAL: The patient is well developed, not in acute distress HEENT: Nonicteric sclerae, PERRLA, EOMI. Oropharynx clear. Moist mucous membranes. Conjunctivae appear well perfused. CHEST: Chest wall is nontender. HEART: Regular rate and rhythm without murmur, rubs, or gallops LUNGS: Left basal crackles, no respiratory distress ABDOMEN: Soft, positive bowel sounds, non-tender, no organomegaly. SKIN: No rash, no excessive bruising, petechiae, or purpura. NEUROLOGIC: Cranial nerves II-XII intact, alert and oriented x 3, no gross motor deficits EXTREMITIES: no edema, cyanosis or clubbing Objective Data Vital Signs Vital Signs: Vital Signs - 24 hr 08/06/25 08:49 08/06/25 11:22 08/06/25 11:33 Temperature Pulse Rate 70 87 76 Respiratory Rate 18 18 18 Blood Pressure Pulse Oximetry Oxygen Delivery Oxygen Flow Rate 08/06/25 14:00 08/06/25 16:47 08/06/25 20:00 Temperature 97.5 F L Pulse Rate 70 70 Respiratory Rate 16 20 Blood Pressure 134/44 L Pulse Oximetry 98 96 Oxygen Delivery Nasal Cannula Oxygen Flow Rate 4 08/06/25 20:04 08/06/25 20:10 08/06/25 20:27 Temperature 98.3 F Pulse Rate 76 76 Respiratory Rate 20 Blood Pressure 120/53 L Pulse Oximetry 97 96 Oxygen Delivery Nasal Cannula Oxygen Flow Rate 4 08/06/25 20:27 08/06/25 20:33 08/06/25 23:51 Temperature Pulse Rate 76 77 73 Respiratory Rate 16 16 15 Blood Pressure Pulse Oximetry Oxygen Delivery Oxygen Flow Rate 08/06/25 23:55 08/07/25 03:47 08/07/25 04:10 Temperature 98.1 F Pulse Rate 74 78 81 Respiratory Rate 15 18 15 Blood Pressure 113/68 Pulse Oximetry 95 Oxygen Delivery Oxygen Flow Rate 08/07/25 04:18 Temperature Pulse Rate 75 Respiratory Rate 15 Blood Pressure Pulse Oximetry Oxygen Delivery Oxygen Flow Rate Intake/Output Intake/Output: Intake & Output 08/04/25 08/05/25 08/06/25 08/07/25 23:59 23:59 23:59 23:59 Intake Total 4788.3 2576 1000 340 Output Total 600 1200 400 850 Balance 4188.3 1376 600 -510 Meds/Results Medications: Active Medications Generic Name Dose Route Start Last Admin Trade Name Freq PRN Reason Stop Dose Admin Acetaminophen 1,000 mg 08/02/25 04:44 08/06/25 16:11 Acetaminophen 500 Mg Tablet PO 1,000 mg Q6H PRN Administration Pain 1-3 or fever Albuterol/Ipratropium 3 ml 08/01/25 20:00 08/07/25 04:10 Ipratropium 0.5 Mg/Albuterol Sulfate 2.5 Mg (Base) Ampul.Neb 3 Ml INHALATION 3 ml Q4HRT JUSTIN Administration Amlodipine Besylate 10 mg 08/02/25 09:00 08/06/25 09:13 Amlodipine Besylate 10 Mg Tablet PO 10 mg DAILY JUSTIN Administration Atorvastatin Calcium 80 mg 08/02/25 21:00 08/06/25 20:09 Atorvastatin 40 Mg Tablet PO 80 mg QHS JUSTIN Administration Carvedilol 25 mg 08/02/25 09:00 08/06/25 20:10 Carvedilol 25 Mg Tablet PO 25 mg Q12H JUSTIN Administration Cilostazol 50 mg 08/02/25 07:30 08/06/25 16:11 Cilostazol 50 Mg Tablet PO 50 mg 0730,1630 JUSTIN Administration Finasteride 5 mg 08/02/25 09:00 08/06/25 09:16 Finasteride 5 Mg Tablet PO 5 mg QAM JUSTIN Administration Fluticasone Propionate 1 spray 08/03/25 11:00 08/06/25 20:08 Fluticasone Propionate 0.05% Na Spr 16 Gm Btl (*Bkc) NASAL 1 spray Q12HR JUSTIN Administration Furosemide 40 mg 08/02/25 09:00 08/04/25 09:18 Furosemide 40 Mg Tablet PO 40 mg On Hold: 08/04/25 11:27 QAM JUSTIN Administration Gabapentin 300 mg 08/02/25 04:44 Gabapentin 300 Mg Capsule PO DAILY PRN neuropathy Guaifenesin 600 mg 08/02/25 09:00 08/06/25 16:11 Guaifenesin 12 Hr 600 Mg Tabcr PO 600 mg BID JUSTIN Administration Heparin Sodium (Porcine) 5,000 units 08/02/25 09:00 08/06/25 20:08 Heparin Sodium 5,000 Units/Ml Vial SUB-Q 5,000 units Q12HR JUSTIN Administration Doxycycline Hyclate 100 mg/ 100 mls @ 100 mls/hr 08/02/25 05:00 08/07/25 04:12 Sodium Chloride IVPB 100 mls/hr Q12H JUSTIN Administration Cefepime HCl 1 gm/ Sodium 50 mls @ 100 mls/hr 08/02/25 09:00 08/06/25 20:08 Chloride IVPB 100 mls/hr Q12H JUSTIN Administration Loratadine 10 mg 08/02/25 05:06 Loratadine 10 Mg Tablet PO HS PRN allergy symptoms Losartan Potassium 50 mg 08/02/25 09:00 08/04/25 09:18 Losartan Potassium 50 Mg Tablet PO 50 mg On Hold: 08/04/25 11:27 DAILY JUSTIN Administration Multivitamins/Minerals 1 tab 08/02/25 09:00 08/06/25 09:12 Multivitamins /C Lutein (Centrum Silver) Tablet *Bkc PO 1 tab DAILY JUSTIN Administration Phenol 1 spray 08/03/25 10:49 08/03/25 11:24 Phenol/Sod Pheno [place] (*Bkc) MUCOUS MEM 1 spray PRN PRN Administration Sore Throat Polyethylene Glycol 17 gm 08/02/25 04:49 Polyethylene Glycol 3350 17 Gm Powd.Pack PO DAILY PRN Constipation Potassium Chloride 10 meq 08/02/25 08:00 08/06/25 09:13 Potassium Chloride 10 Meq Er Tablet PO 10 meq DAILY@0800 JUSTIN Administration Roflumilast 500 mcg 08/02/25 09:00 08/06/25 09:12 Roflumilast 500 Mcg Tablet PO 500 mcg DAILY JUSTIN Administration Tamsulosin HCl 0.8 mg 08/02/25 21:00 08/06/25 20:10 Tamsulosin Hcl 0.4 Mg Capsule PO 0.8 mg HS JUSTIN Administration Tramadol HCl 50 mg 08/02/25 04:49 08/05/25 17:56 Tramadol Hcl (*Crx) 50 Mg Tablet PO 50 mg Q6H PRN Administration pain 4-10 Umeclidinium/Vilanterol 1 puff 08/02/25 08:00 08/06/25 08:47 Umeclidinium/Vilanterol 62.5-25 Mcg Ellipta INHALATION 1 puff DAILYRT JUSTIN Administration Radiology Results: ITS Impressions Chest X-Ray 08/01/25 15:23 IMPRESSION: 1. No acute pulmonary findings. Severe emphysema of lungs with chronic pleural thickening of left costophrenic angle. Severe atherosclerotic aorta. Chest/Abdomen/Pelvis CT 08/01/25 18:13 IMPRESSION: 1. Severe emphysematous changes of lungs. Peribronchial thickening of left lung base with mild bronchiectasis as mentioned above. Findings are suggestive of bronchopneumonic changes in the left lower lobe. Stable noncalcified nodules of left lung. Continued follow-up by CT scan at 6 months is recommended. 2. Diffuse abdominal aortic aneurysm measuring 4 cm in diameter at L1-2 and 3.6 cm at L4-5 level. 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 3 severe calcific atherosclerotic disease of the iliac arteries on both sides right worse than the left. The evaluation of pelvis limited by artifacts from bilateral hip arthroplasty. Pelvis Ultrasound 08/04/25 15:55 IMPRESSION: [place] catheter within the bladder Labs Labs: Laboratory Results - last 24 hr 08/04/25 08/07/25 09:30 05:23 WBC 5.1 RBC 2.82 L Hgb 7.9 L Hct 26.9 L MCV 95.4 MCH 28.0 MCHC 29.4 L RDW 14.0 Plt Count 133 L MPV 9.7 Immature Gran % (Auto) 0.2 Neut % (Auto) 76.2 H Lymph % (Auto) 10.2 L [place] % (Auto) 8.3 Eos % (Auto) 4.5 H Baso % (Auto) 0.6 Lymph # (Auto) 0.52 L [place] # (Auto) 0.4 Eos # (Auto) 0.2 Baso # (Auto) 0.0 Abs Immat Gran (auto) 0.01 Absolute Neuts (auto) 3.9 Absolute Nucleated RBC 0.000 Band Neutrophils % Not Reportable Nucleated RBC % 0.0 Platelet Estimate Decreased Hypochromasia 1+ Basophilic Stippling Occasional Anisocytosis 1+ Ovalocytes 1+ [place] Cells 1+ Schistocytes Occasional Sodium 135 L Potassium 5.0 Chloride 107 Carbon Dioxide 23 Anion Gap 5 BUN 57 H Creatinine 2.54 H Estim Creat Clear Calc 22 Estimated GFR 25 L Glucose 83 Calcium 8.4 Magnesium 2.0 Total Bilirubin 0.3 AST 20 ALT 12 Alkaline Phosphatase 91 Total Protein 6.1 L Albumin 3.0 L Chlamy pneumoniae PCR Not detected Adenovirus (PCR) Not detected B. pertussis DNA (PCR) Not detected B.parapertussis DNA PCR Not detected Coronavirus OC43 (PCR) Not detected Coronavirus HKU1 (PCR) Not detected Coronavirus 229E (PCR) Not detected Coronavirus NL63 (PCR) Not detected Human Metapneumovir PCR Not detected Influenza A (H1) PCR Not detected Influ A (H1/09) PCR Not detected Influenza A (H3) PCR Not detected Influenza Type A (PCR) Not detected Influenza Type B (PCR) Not detected M. pneumoniae (PCR) Not detected Parainfluenza 1 (PCR) Not detected Parainfluenza 2 (PCR) Not detected Parainfluenza 3 (PCR) Not detected Parainfluenza 4 (PCR) Not detected RSV (PCR) Not detected Entero/Rhino (PCR) Not detected SARS-CoV-2 (PCR) Not detected Imaging Radiologist's impression: ITS Impressions Chest X-Ray 08/01/25 15:23 IMPRESSION: 1. No acute pulmonary findings. Severe emphysema of lungs with chronic pleural thickening of left costophrenic angle. Severe atherosclerotic aorta. Chest/Abdomen/Pelvis CT 08/01/25 18:13
[2025-08-07] MEDS: FINASTERIDE 5 MG TABLET PO (08:47)
[2025-08-07] MEDS: guaiFENesin 12 HR 600 MG TABCR PO ×2 (08:47→17:06)
[2025-08-07] MEDS: MULTIVITAMINS /C LUTEIN (CENTRUM SILVER) TABLET *BKC 1 TAB PO (08:47)
[2025-08-07] MEDS: POTASSIUM CHLORIDE 10 MEQ ER TABLET PO (08:47)
[2025-08-07] MEDS: ROFLUMILAST 500 MCG TABLET PO (08:47)
[2025-08-07] MEDS: GABAPENTIN 300 MG CAPSULE PO ×2 (08:47→22:32)
[2025-08-07] MEDS: CEFEPIME 1 GM in SODIUM CHLORIDE 0.9% IV 50 ML 100 ML IVPB ×2 (08:48→21:41)
[2025-08-07] MEDS: FLUTICASONE PROPIONATE 0.05% NA SPR 16 GM BTL (*BKC) 1 SPRAY NASAL ×2 (08:48→21:41)
[2025-08-07] MEDS: UMECLIDINIUM/VILANTEROL 62.5-25 MCG ELLIPTA 1 PUFF INHALATION (09:00)
--- NOTE | 2025-08-07 09:51 | WPDINFPN2 ---
Progress Note: A&P Assessment and Plan (1) Urinary tract infection due to Pseudomonas aeruginosa: Code(s): N39.0 - Urinary tract infection, site not specified; B96.5 - Pseudomonas (aeruginosa) (mallei) (pseudomallei) as the cause of diseases classified elsewhere Status: Acute Plan ASSESSMENT: 1. PSAR UTI is setting of BPH and penile stricture--continue cefepime 2. chronic respiratory failure on 4L o2 NC at baseline 3. COPD, bronchiectasis, pulmonary MAC--no treatment-->watchful waiting 4. possible pneumonia; MRSA nares neg 5. CKD 6. PE/DVT RECOMMENDATIONS: -continue cefepime -stop doxy -blood cxs NGTD -f/u on sputum cx--n santiago -legionella -strep urine ag -Resp viral panel--neg d/w pharmacy Pt was seen via video telehealth consultation with the assistance of staff. Chart, data and patient info reviewed. Patient was located at [facility] while I was in my [place] office. Pt gave consent. Subjective Date/time seen: 08/07/25 09:51 Interval history: no fevers no leukocytosis Exam Narrative: NAD, non-toxic on 4.5L O2 NC abd soft NT left flank tender Objective Data Vital Signs Vital Signs: Vital Signs - 24 hr 08/06/25 11:22 08/06/25 11:33 08/06/25 14:00 Temperature 97.5 F L Pulse Rate 87 76 70 Respiratory Rate 18 18 16 Blood Pressure 134/44 L Pulse Oximetry 98 Oxygen Delivery Oxygen Flow Rate 08/06/25 16:47 08/06/25 20:00 08/06/25 20:04 Temperature 98.3 F Pulse Rate 70 76 Respiratory Rate 20 20 Blood Pressure 120/53 L Pulse Oximetry 96 97 Oxygen Delivery Nasal Cannula Oxygen Flow Rate 4 08/06/25 20:10 08/06/25 20:27 08/06/25 20:27 Temperature Pulse Rate 76 76 Respiratory Rate 16 Blood Pressure Pulse Oximetry 96 Oxygen Delivery Nasal Cannula Oxygen Flow Rate 4 08/06/25 20:33 08/06/25 23:51 08/06/25 23:55 Temperature Pulse Rate 77 73 74 Respiratory Rate 16 15 15 Blood Pressure Pulse Oximetry Oxygen Delivery Oxygen Flow Rate 08/07/25 03:47 08/07/25 04:10 08/07/25 04:18 Temperature 98.1 F Pulse Rate 78 81 75 Respiratory Rate 18 15 15 Blood Pressure 113/68 Pulse Oximetry 95 Oxygen Delivery Oxygen Flow Rate 08/07/25 08:47 Temperature Pulse Rate 78 Respiratory Rate Blood Pressure Pulse Oximetry Oxygen Delivery Oxygen Flow Rate Intake/Output Intake/Output: Intake & Output 08/04/25 08/05/25 08/06/25 08/07/25 23:59 23:59 23:59 23:59 Intake Total 4788.3 2576 1050 820 Output Total 600 2920 108 7517 Balance 4188.3 1376 650 -280 Meds/Results Medications: Active Medications Generic Name Dose Route Start Last Admin Trade Name Freq PRN Reason Stop Dose Admin Acetaminophen 1,000 mg 08/02/25 04:44 08/06/25 16:11 Acetaminophen 500 Mg Tablet PO 1,000 mg Q6H PRN Administration Pain 1-3 or fever Albuterol/Ipratropium 3 ml 08/01/25 20:00 08/07/25 09:00 Ipratropium 0.5 Mg/Albuterol Sulfate 2.5 Mg (Base) Ampul.Neb 3 Ml INHALATION 3 ml Q4HRT JUSTIN Administration Amlodipine Besylate 10 mg 08/02/25 09:00 08/07/25 08:47 Amlodipine Besylate 10 Mg Tablet PO 10 mg DAILY JUSTIN Administration Atorvastatin Calcium 80 mg 08/02/25 21:00 08/06/25 20:09 Atorvastatin 40 Mg Tablet PO 80 mg QHS JUSTIN Administration Carvedilol 25 mg 08/02/25 09:00 08/07/25 08:47 Carvedilol 25 Mg Tablet PO 25 mg Q12H JUSTIN Administration Cilostazol 50 mg 08/02/25 07:30 08/07/25 08:47 Cilostazol 50 Mg Tablet PO 50 mg 0730,1630 JUSTIN Administration Finasteride 5 mg 08/02/25 09:00 08/07/25 08:47 Finasteride 5 Mg Tablet PO 5 mg QAM JUSTIN Administration Fluticasone Propionate 1 spray 08/03/25 11:00 08/07/25 08:48 Fluticasone Propionate 0.05% Na Spr 16 Gm Btl (*Bkc) NASAL 1 spray Q12HR JUSTIN Administration Furosemide 40 mg 08/02/25 09:00 08/04/25 09:18 Furosemide 40 Mg Tablet PO 40 mg On Hold: 08/04/25 11:27 QAM JUSTIN Administration Gabapentin 300 mg 08/02/25 04:44 08/07/25 08:47 Gabapentin 300 Mg Capsule PO 300 mg DAILY PRN Administration neuropathy Guaifenesin 600 mg 08/02/25 09:00 08/07/25 08:47 Guaifenesin 12 Hr 600 Mg Tabcr PO 600 mg BID JUSTIN Administration Heparin Sodium (Porcine) 5,000 units 08/02/25 09:00 08/07/25 08:50 Heparin Sodium 5,000 Units/Ml Vial SUB-Q 5,000 units Q12HR JUSTIN Administration Doxycycline Hyclate 100 mg/ 100 mls @ 100 mls/hr 08/02/25 05:00 08/07/25 04:12 Sodium Chloride IVPB 100 mls/hr Q12H JUSTIN Administration Cefepime HCl 1 gm/ Sodium 50 mls @ 100 mls/hr 08/02/25 09:00 08/07/25 08:48 Chloride IVPB 100 mls/hr Q12H JUSTIN Administration Loratadine 10 mg 08/02/25 05:06 Loratadine 10 Mg Tablet PO HS PRN allergy symptoms Losartan Potassium 50 mg 08/02/25 09:00 08/04/25 09:18 Losartan Potassium 50 Mg Tablet PO 50 mg On Hold: 08/04/25 11:27 DAILY JUSTIN Administration Multivitamins/Minerals 1 tab 08/02/25 09:00 08/07/25 08:47 Multivitamins /C Lutein (Centrum Silver) Tablet *Bkc PO 1 tab DAILY JUSTIN Administration Phenol 1 spray 08/03/25 10:49 08/03/25 11:24 Phenol/Sod Pheno [place] (*Bkc) MUCOUS MEM 1 spray PRN PRN Administration Sore Throat Polyethylene Glycol 17 gm 08/02/25 04:49 Polyethylene Glycol 3350 17 Gm Powd.Pack PO DAILY PRN Constipation Potassium Chloride 10 meq 08/02/25 08:00 08/07/25 08:47 Potassium Chloride 10 Meq Er Tablet PO 10 meq DAILY@0800 JUSTIN Administration Roflumilast 500 mcg 08/02/25 09:00 08/07/25 08:47 Roflumilast 500 Mcg Tablet PO 500 mcg DAILY JUSTIN Administration Tamsulosin HCl 0.8 mg 08/02/25 21:00 08/06/25 20:10 Tamsulosin Hcl 0.4 Mg Capsule PO 0.8 mg HS JUSTIN Administration Tramadol HCl 50 mg 08/02/25 04:49 08/05/25 17:56 Tramadol Hcl (*Crx) 50 Mg Tablet PO 50 mg Q6H PRN Administration pain 4-10 Umeclidinium/Vilanterol 1 puff 08/02/25 08:00 08/07/25 09:00 Umeclidinium/Vilanterol 62.5-25 Mcg Ellipta INHALATION 1 puff DAILYRT JUSTIN Administration Radiology Results: ITS Impressions Chest X-Ray 08/01/25 15:23 IMPRESSION: 1. No acute pulmonary findings. Severe emphysema of lungs with chronic pleural thickening of left costophrenic angle. Severe atherosclerotic aorta. Chest/Abdomen/Pelvis CT 08/01/25 18:13 IMPRESSION: 1. Severe emphysematous changes of lungs. Peribronchial thickening of left lung base with mild bronchiectasis as mentioned above. Findings are suggestive of bronchopneumonic changes in the left lower lobe. Stable noncalcified nodules of left lung. Continued follow-up by CT scan at 6 months is recommended. 2. Diffuse abdominal aortic aneurysm measuring 4 cm in diameter at L1-2 and 3.6 cm at L4-5 level. 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 3 severe calcific atherosclerotic disease of the iliac arteries on both sides right worse than the left. The evaluation of pelvis limited by artifacts from bilateral hip arthroplasty. Pelvis Ultrasound 08/04/25 15:55 IMPRESSION: [place] catheter within the bladder Labs Labs: Laboratory Results - last 24 hr 08/04/25 08/07/25 09:30 05:23 WBC 5.1 RBC 2.82 L Hgb 7.9 L Hct 26.9 L MCV 95.4 MCH 28.0 MCHC 29.4 L RDW 14.0 Plt Count 133 L MPV 9.7 Immature Gran % (Auto) 0.2 Neut % (Auto) 76.2 H Lymph % (Auto) 10.2 L [place] % (Auto) 8.3 Eos % (Auto) 4.5 H Baso % (Auto) 0.6 Lymph # (Auto) 0.52 L [place] # (Auto) 0.4 Eos # (Auto) 0.2 Baso # (Auto) 0.0 Abs Immat Gran (auto) 0.01 Absolute Neuts (auto) 3.9 Absolute Nucleated RBC 0.000 Band Neutrophils % Not Reportable Nucleated RBC % 0.0 Platelet Estimate Decreased Hypochromasia 1+ Basophilic Stippling Occasional Anisocytosis 1+ Ovalocytes 1+ Christopher Cells 1+ Schistocytes Occasional Sodium 135 L Potassium 5.0 Chloride 107 Carbon Dioxide 23 Anion Gap 5 BUN 57 H Creatinine 2.54 H Estim Creat Clear Calc 22 Estimated GFR 25 L Glucose 83 Calcium 8.4 Magnesium 2.0 Total Bilirubin 0.3 AST 20 ALT 12 Alkaline Phosphatase 91 Total Protein 6.1 L Albumin 3.0 L Chlamy pneumoniae PCR Not detected Adenovirus (PCR) Not detected B. pertussis DNA (PCR) Not detected B.parapertussis DNA PCR Not detected Coronavirus OC43 (PCR) Not detected Coronavirus HKU1 (PCR) Not detected Coronavirus 229E (PCR) Not detected Coronavirus NL63 (PCR) Not detected Human Metapneumovir PCR Not detected Influenza A (H1) PCR Not detected Influ A (H1/09) PCR Not detected Influenza A (H3) PCR Not detected Influenza Type A (PCR) Not detected Influenza Type B (PCR) Not detected M. pneumoniae (PCR) Not detected Parainfluenza 1 (PCR) Not detected Parainfluenza 2 (PCR) Not detected Parainfluenza 3 (PCR) Not detected Parainfluenza 4 (PCR) Not detected RSV (PCR) Not detected Entero/Rhino (PCR) Not detected SARS-CoV-2 (PCR) Not detected
--- NOTE | 2025-08-07 11:14 | PCNFU ---
Nutrition Follow-Up Complete: Moderate protein calorie malnutrition related to suboptimal nutrition intake in the setting of chronic COPD as evidenced by weight loss 15%/6 months; intakes <75% meals >1 month; moderate muscle wasting and fat loss Goal: Intakes >75% Patient is meeting goal. No new goal. Pt current nutrition is Heart Healthy with diet supplements. Last recorded weight is 65.3 kg, no new weight to report. Bowel Motility: Last reported BM 08/06 Labs Reviewed: Cr 2.54, BUN 57, Na 135, Hct 26.9, Hgb 7.9 Meds Noted: Mucinex, Lipitor, MVI Skin: WNL Additional Notes: Patient remains on a heart healthy diet. PO intake has been 75% or greater per meal. Diet supplements of Ensure Plus High Protein are being providing BID for additional 350 kcal and 20 gm protein. Agree with diet orders. Monitoring intakes,w eights, labs, supplement tolerance, plan of care Follow up in 5 days
[2025-08-07] MEDS: ATORVASTATIN 40 MG TABLET 80 MG PO (21:40)
[2025-08-07] MEDS: TAMSULOSIN HCL 0.4 MG CAPSULE 0.8 MG PO (21:41)
[2025-08-08 04:06] VITALS: BP 119/46; PULSE 72; RESP 20; TEMP 36.8; O2SAT 92
[2025-08-08 05:27] LABS: Hematocrit 26.6 % (42.0-52.0); Hemoglobin 8.0 g/dL (14.0-18.0); Immature Granulocyte Percent A 0.4 % (0-0.5); Lymphocytes Absolute Auto 0.65 K/mm3 (0.9-3.2); Mean Corpuscular HGB Conc 30.1 g/dl (32-36); Mean Corpuscular Hemoglobin 28.3 pg (26-34); Mean Corpuscular Volume 94.0 fl (80-100); Nucleated Red Blood Cells Absolute Auto 0.000 K/mm3 (0.0-0.012); Nucleated Red Blood Cells Perc 0.0 % (0.0-0.2); Platelet Count Result 120 k/mm3 (150-375); Red Blood Count 2.83 M/mm3 (4.6-6.20); White Blood Count 5.2 K/mm3 (4.5-10.0)
[2025-08-08 05:46] LABS: Anion Gap 2 mmol/L (4-12); Blood Urea Nitrogen 48 mg/dL (9-20); Calcium 8.8 mg/dL (8.4-10.2); Carbon Dioxide 26 mmol/L (22-30); Chloride 107 mmol/L (98-107); Estimated CRCL calculation 23 ml/min; Estimated Glomerular Filt Rate 26; Glucose 91 mg/dL (65-110); Magnesium 1.9 mg/dL (1.6-2.3); Potassium 5.2 mmol/L (3.4-5.0); Sodium 135 mmol/L (137-145)
[2025-08-08 08:00] VITALS: PULSE 78; RESP 20; O2SAT 94
[2025-08-08] MEDS: MULTIVITAMINS /C LUTEIN (CENTRUM SILVER) TABLET *BKC 1 TAB PO (08:33)
[2025-08-08] MEDS: guaiFENesin 12 HR 600 MG TABCR PO ×2 (08:33→16:20)
[2025-08-08] MEDS: FINASTERIDE 5 MG TABLET PO (08:33)
[2025-08-08] MEDS: ROFLUMILAST 500 MCG TABLET PO (08:33)
[2025-08-08] MEDS: FLUTICASONE PROPIONATE 0.05% NA SPR 16 GM BTL (*BKC) 1 SPRAY NASAL ×2 (08:34→21:00)
[2025-08-08] MEDS: CEFEPIME 1 GM in SODIUM CHLORIDE 0.9% IV 50 ML 100 ML IVPB ×2 (08:34→20:17)
--- NOTE | 2025-08-08 13:56 | PM.IMPN2 ---
Assessment and Plan Assessment and Plan (1) Urinary tract infection due to Pseudomonas aeruginosa: Code(s): N39.0 - Urinary tract infection, site not specified; B96.5 - Pseudomonas (aeruginosa) (mallei) (pseudomallei) as the cause of diseases classified elsewhere Status: Acute (2) Urinary retention with incomplete bladder emptying: Code(s): R33.9 - Retention of urine, unspecified Status: Acute (3) Bronchiectasis: Qualifiers: Bronchiectasis type: uncomplicated Qualified Code(s): J47.9 - Bronchiectasis, uncomplicated Code(s): J47.9 - Bronchiectasis, uncomplicated Status: Acute (4) Chronic respiratory failure with hypoxia, on home oxygen therapy: Code(s): J96.11 - Chronic respiratory failure with hypoxia; Z99.81 - Dependence on supplemental oxygen Status: Acute (5) Chronic kidney disease, stage IV (severe): Code(s): N18.4 - Chronic kidney disease, stage 4 (severe) Status: Chronic Plan This is a 74-year-old male who presented with increased shortness of breath and urinary symptoms. He has been having urinary symptoms for couple of weeks as well as diarrhea for the last month. Reports subjective fever chills fatigue anxiety and abdominal pain. No chest pain. Has history of COPD with 4 L oxygen at baseline. History of DVT/PE on Eliquis. On ED evaluation his vitals were stable. Laboratory workup revealed WBC of 7.3 hemoglobin 10.4 platelet of 216. Chem panel showed sodium 140 potassium 4.5 chloride 100 bicarbonate 35 BUN 37 creatinine 2.5 blood glucose of 113. LFTs were normal. Urinalysis with more than 100 urine WBC. EKG showed with with nonspecific ST-T changes. Chest x-ray with no acute pulmonary findings. Severe emphysema of lungs with chronic pleural thickening of the left costophrenic angle. Severe atherosclerotic aorta noted. CT also demonstrates severe emphysematous changes of the lungs and findings suggestive of bronchopneumonia changes of the left lower lobe. Stable noncalcified nodules of the left lung. 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 UTI recent urine culture as an outpatient basis growing Pseudomonas resistant to all oral antibiotics. IV cefepime started. Repeat urine culture with Pseudomonas aeruginosa. IV cefepime tentative 7 days concludes coming . Id on board will await for the final recommendation. Plan to complete course of treatment BPH and history of urinary retention. Postvoid residual greater than 400 mL. Patient currently on Flomax and Proscar which will be resumed. [place] catheter was placed. Renal ultrasound 07/31/2025 with bilateral simple appearing renal cysts. Nonspecific bladder density correlate for cystitis. Infectious disease consult. Void trial 08/06/2025 with successful removal of [place] catheter. Will do bladder scan to rule out excessive postvoid residual CKD stage 4 continue to monitor renal function with mild ALFREDO. Bladder scan at bedside with no retention. Bladder ultrasound reviewed. Gentle IV fluid will be started. Continue to trend creatinine improved with IV fluids. Subsequently IV fluids stopped. Continue to hold Lasix and losartan COPD with chronic hypoxic respiratory failure Bronchiectasis Small area bronchopneumonia left lower lobe. Also added doxycycline for atypical coverage. Continue on DuoNeb scheduled. Sputum culture preliminary with rare Gram-positive cocci History of Mycobacterium avium complex DVT prophylaxis heparin subQ Code status full code Subjective Date/time seen: 08/08/25 13:56 Interval history: Patient is currently treated UTI and urinary retention. Patient is currently on cefepime. Patient reports he needs surgery for urethral stricture. Exam Narrative: GENERAL: The patient is well developed, not in acute distress HEENT: Nonicteric sclerae, PERRLA, EOMI. Oropharynx clear. Moist mucous membranes. Conjunctivae appear well perfused. CHEST: Chest wall is nontender. HEART: Regular rate and rhythm without murmur, rubs, or gallops LUNGS: Left basal crackles, no respiratory distress ABDOMEN: Soft, positive bowel sounds, non-tender, no organomegaly. SKIN: No rash, no excessive bruising, petechiae, or purpura. NEUROLOGIC: Cranial nerves II-XII intact, alert and oriented x 3, no gross motor deficits EXTREMITIES: no edema, cyanosis or clubbing Const: Other: Thin body habitus, no acute distress, appears stated age HENMT: Other: Mucous membranes are moist, no oral pharyngeal erythema, head is normocephalic atraumatic, nasal cannula in place Eyes: Other: Pupils are equal and reactive, no scleral icterus Neck: Other: No JVD, no lymphadenopathy Resp: Other: Coarse crackles at the a left lower lung base, no increased work of breathing GI: Other: Regular rate, regular rhythm, 2+ bilateral radial and pedal pulses : Other: Suprapubic fullness and discomfort with palpation, postvoid residual greater than 400 Skin: Other: No jaundice, positive pallor Neuro: Other: Alert oriented x4, speech is clear, no facial asymmetry, no localizing neurologic deficits noted during the course of conversation patient is able to stand unassisted Extrem: Other: No cyanosis, no edema, 5/5 event marketing intern strength bilaterally, patient is able to stand unassisted Psych: Other: Appropriate mood and affect, pleasant and cooperative, judgment and insight intact Objective Data Vital Signs Vital Signs: Vital Signs - 24 hr 08/07/25 14:00 08/07/25 19:53 08/07/25 20:00 Temperature 98.5 F 97.4 F L Pulse Rate 68 72 Respiratory Rate 18 20 Blood Pressure 141/56 H 132/58 L Pulse Oximetry 90 95 98 Oxygen Delivery Nasal Cannula Oxygen Flow Rate 4 08/07/25 22:05 08/07/25 22:07 08/07/25 22:10 Temperature Pulse Rate 78 79 Respiratory Rate 20 20 Blood Pressure Pulse Oximetry 98 Oxygen Delivery Nasal Cannula Oxygen Flow Rate 4 08/08/25 04:06 08/08/25 08:00 Temperature 98.3 F Pulse Rate 72 78 Respiratory Rate 20 20 Blood Pressure 119/46 L Pulse Oximetry 92 94 Oxygen Delivery Nasal Cannula Oxygen Flow Rate 4 Intake/Output Intake/Output: Intake & Output 08/05/25 08/06/25 08/07/25 08/08/25 23:59 23:59 23:59 23:59 Intake Total 2576 1050 1382 920 Output Total 5376 741 6572 700 Balance 1376 650 -68 220 Meds/Results Medications: Active Medications Generic Name Dose Route Start Last Admin Trade Name Freq PRN Reason Stop Dose Admin Acetaminophen 1,000 mg 08/02/25 04:44 08/06/25 16:11 Acetaminophen 500 Mg Tablet PO 1,000 mg Q6H PRN Administration Pain 1-3 or fever Albuterol/Ipratropium 3 ml 08/07/25 13:14 08/07/25 22:05 Ipratropium 0.5 Mg/Albuterol Sulfate 2.5 Mg (Base) Ampul.Neb 3 Ml INHALATION 3 ml Q4HRT PRN Administration Shortness Of Breath Or Wheezing Amlodipine Besylate 10 mg 08/02/25 09:00 08/08/25 08:33 Amlodipine Besylate 10 Mg Tablet PO 10 mg DAILY JUSTIN Administration Atorvastatin Calcium 80 mg 08/02/25 21:00 08/07/25 21:40 Atorvastatin 40 Mg Tablet PO 80 mg QHS JUSTIN Administration Carvedilol 25 mg 08/02/25 09:00 08/08/25 08:33 Carvedilol 25 Mg Tablet PO 25 mg Q12H JUSTIN Administration Cilostazol 50 mg 08/02/25 07:30 08/08/25 08:33 Cilostazol 50 Mg Tablet PO 50 mg 0730,1630 JUSTIN Administration Finasteride 5 mg 08/02/25 09:00 08/08/25 08:33 Finasteride 5 Mg Tablet PO 5 mg QAM JUSTIN Administration Fluticasone Propionate 1 spray 08/03/25 11:00 08/08/25 08:34 Fluticasone Propionate 0.05% Na Spr 16 Gm Btl (*Bkc) NASAL 1 spray Q12HR JUSTIN Administration Furosemide 40 mg 08/02/25 09:00 08/04/25 09:18 Furosemide 40 Mg Tablet PO 40 mg On Hold: 08/04/25 11:27 QAM JUSTIN Administration Gabapentin 300 mg 08/07/25 21:01 08/07/25 22:32 Gabapentin 300 Mg Capsule PO 300 mg BID PRN Administration neuropathy Guaifenesin 600 mg 08/02/25 09:00 08/08/25 08:33 Guaifenesin 12 Hr 600 Mg Tabcr PO 600 mg BID JUSTIN Administration Heparin Sodium (Porcine) 5,000 units 08/02/25 09:00 08/08/25 08:35 Heparin Sodium 5,000 Units/Ml Vial SUB-Q 5,000 units Q12HR JUSTIN Administration Cefepime HCl 1 gm/ Sodium 50 mls @ 100 mls/hr 08/02/25 09:00 08/08/25 09:40 Chloride IVPB Infused Q12H JUSTIN Infusion Loratadine 10 mg 08/02/25 05:06 Loratadine 10 Mg Tablet PO HS PRN allergy symptoms Losartan Potassium 50 mg 08/02/25 09:00 08/04/25 09:18 Losartan Potassium 50 Mg Tablet PO 50 mg On Hold: 08/04/25 11:27 DAILY JUSTIN Administration Multivitamins/Minerals 1 tab 08/02/25 09:00 08/08/25 08:33 Multivitamins /C Lutein (Centrum Silver) Tablet *Bkc PO 1 tab DAILY JUSTIN Administration Phenol 1 spray 08/03/25 10:49 08/03/25 11:24 Phenol/Sod Pheno [place] (*Bkc) MUCOUS MEM 1 spray PRN PRN Administration Sore Throat Polyethylene Glycol 17 gm 08/02/25 04:49 Polyethylene Glycol 3350 17 Gm Powd.Pack PO DAILY PRN Constipation Potassium Chloride 10 meq 08/02/25 08:00 08/07/25 08:47 Potassium Chloride 10 Meq Er Tablet PO 10 meq On Hold: 08/07/25 13:13 DAILY@0800 JUSTIN Administration Comment: HOLD DUE TO K LEVEL OF 5 Roflumilast 500 mcg 08/02/25 09:00 08/08/25 08:33 Roflumilast 500 Mcg Tablet PO 500 mcg DAILY JUSTIN Administration Tamsulosin HCl 0.8 mg 08/02/25 21:00 08/07/25 21:41 Tamsulosin Hcl 0.4 Mg Capsule PO 0.8 mg HS JUSTIN Administration Tramadol HCl 50 mg 08/02/25 04:49 08/05/25 17:56 Tramadol Hcl (*Crx) 50 Mg Tablet PO 50 mg Q6H PRN Administration pain 4-10 Umeclidinium/Vilanterol 1 puff 08/02/25 08:00 08/07/25 09:00 Umeclidinium/Vilanterol 62.5-25 Mcg Ellipta INHALATION 1 puff DAILYRT JUSTIN Administration Radiology Results: ITS Impressions Chest X-Ray 08/01/25 15:23 IMPRESSION: 1. No acute pulmonary findings. Severe emphysema of lungs with chronic pleural thickening of left costophrenic angle. Severe atherosclerotic aorta. Chest/Abdomen/Pelvis CT 08/01/25 18:13 IMPRESSION: 1. Severe emphysematous changes of lungs. Peribronchial thickening of left lung base with mild bronchiectasis as mentioned above. Findings are suggestive of bronchopneumonic changes in the left lower lobe. Stable noncalcified nodules of left lung. Continued follow-up by CT scan at 6 months is recommended. 2. Diffuse abdominal aortic aneurysm measuring 4 cm in diameter at L1-2 and 3.6 cm at L4-5 level. 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 3 severe calcific atherosclerotic disease of the iliac arteries on both sides right worse than the left. The evaluation of pelvis limited by artifacts from bilateral hip arthroplasty. Pelvis Ultrasound 08/04/25 15:55 IMPRESSION: [place] catheter within the bladder Labs Labs: Laboratory Results - last 24 hr 08/08/25 05:14 WBC 5.2 RBC 2.83 L Hgb 8.0 L Hct 26.6 L MCV 94.0 MCH 28.3 MCHC 30.1 L RDW 14.1 Plt Count 120 L MPV 9.3 Immature Gran % (Auto) 0.4 Neut % (Auto) 73.6 H Lymph % (Auto) 12.6 L [place] % (Auto) 8.3 Eos % (Auto) 4.5 H Baso % (Auto) 0.6 Lymph # (Auto) 0.65 L [place] # (Auto) 0.4 Eos # (Auto) 0.2 Baso # (Auto) 0.0 Abs Immat Gran (auto) 0.02 Absolute Neuts (auto) 3.8 Absolute Nucleated RBC 0.000 Nucleated RBC % 0.0 Sodium 135 L Potassium 5.2 H Chloride 107 Carbon Dioxide 26 Anion Gap 2 L BUN 48 H Creatinine 2.47 H Estim Creat Clear Calc 23 Estimated GFR 26 L Glucose 91 Calcium 8.8 Magnesium 1.9 Quality VTE Prophylaxis VTE prophylaxis: pharmacologic ordered (Heparin 5000 units subQ q.12 hours) Hospitalist MIPS Advance Care Plan I have confirmed that the patient's Advanced Care Plan is present, code status is documented, or surrogate decision maker is listed in patient medical record.: Yes Medication Reconciliation I have utilized all available resources to obtain, update and review the patients current medications (includes all prescriptions, OTC, herbals, cannabis, and nutritional supplements).: Yes
[2025-08-08 14:00] VITALS: BP 126/48; PULSE 75; RESP 16; TEMP 36.6; O2SAT 100
[2025-08-08] MEDS: IPRATROPIUM 0.5 MG/ALBUTEROL SULFATE 2.5 MG (BASE) AMPUL.NEB 3 ML INHALATION (18:34)
[2025-08-08 19:44] VITALS: BP 133/53; PULSE 70; RESP 20; TEMP 36.4; O2SAT 94
[2025-08-08 20:00] VITALS: PULSE 71; RESP 20; O2SAT 94
[2025-08-08 20:17] VITALS: PULSE 71
[2025-08-08] MEDS: TAMSULOSIN HCL 0.4 MG CAPSULE 0.8 MG PO (20:17)
[2025-08-08] MEDS: ATORVASTATIN 40 MG TABLET 80 MG PO (20:19)
[2025-08-08] MEDS: GABAPENTIN 300 MG CAPSULE PO (20:21)
[2025-08-09] VITALS (12 sets, daily range): BP systolic 117–148; BP diastolic 52–59; PULSE 72–88; RESP 16–20; TEMP 36.4–36.8; O2SAT 97–100
[2025-08-09 05:37] LABS: Hematocrit 25.8 % (42.0-52.0); Hemoglobin 7.8 g/dL (14.0-18.0); Mean Corpuscular HGB Conc 30.2 g/dl (32-36); Mean Corpuscular Hemoglobin 28.7 pg (26-34); Mean Corpuscular Volume 94.9 fl (80-100); Platelet Count Result 125 k/mm3 (150-375); Red Blood Count 2.72 M/mm3 (4.6-6.20); White Blood Count 5.4 K/mm3 (4.5-10.0)
[2025-08-09 05:58] LABS: Alanine Aminotransferase 14 U/L (6-50); Albumin Level 3.0 g/dL (3.5-5.1); Alkaline Phosphatase 87 U/L (38-126); Anion Gap 2 mmol/L (4-12); Aspartate Amino Transferase 24 U/L (17-59); Bilirubin,Total 0.4 mg/dL (0.2-1.3); Blood Urea Nitrogen 49 mg/dL (9-20); Calcium 8.9 mg/dL (8.4-10.2); Carbon Dioxide 24 mmol/L (22-30); Chloride 107 mmol/L (98-107); Estimated CRCL calculation 23 ml/min; Estimated Glomerular Filt Rate 27; Glucose 86 mg/dL (65-110); Potassium 5.2 mmol/L (3.4-5.0); Sodium 133 mmol/L (137-145); Total Protein 6.1 g/dL (6.3-8.2)
[2025-08-09] MEDS: FLUTICASONE PROPIONATE 0.05% NA SPR 16 GM BTL (*BKC) 1 SPRAY NASAL ×2 (07:57→20:42)
[2025-08-09] MEDS: guaiFENesin 12 HR 600 MG TABCR PO ×2 (08:09→16:48)
[2025-08-09] MEDS: ROFLUMILAST 500 MCG TABLET PO (08:09)
[2025-08-09] MEDS: FINASTERIDE 5 MG TABLET PO (08:09)
[2025-08-09] MEDS: MULTIVITAMINS /C LUTEIN (CENTRUM SILVER) TABLET *BKC 1 TAB PO (08:10)
[2025-08-09] MEDS: CEFEPIME 1 GM in SODIUM CHLORIDE 0.9% IV 50 ML 100 ML IVPB ×2 (08:10→20:38)
--- NOTE | 2025-08-09 08:17 | PM.IMPN2 ---
Assessment and Plan Assessment and Plan (1) Urinary tract infection due to Pseudomonas aeruginosa: Code(s): N39.0 - Urinary tract infection, site not specified; B96.5 - Pseudomonas (aeruginosa) (mallei) (pseudomallei) as the cause of diseases classified elsewhere Status: Acute Assessment and Plan: Recent urine culture as outpatient showing Pseudomonas resistant to all oral antibiotics Patient currently on IV cefepime until 08/10 ID on board (2) Urinary retention with incomplete bladder emptying: Code(s): R33.9 - Retention of urine, unspecified Status: Acute Assessment and Plan: BPH and history of urinary retention Currently on Flomax and Proscar Bladder training Currently on [place] (3) Bronchiectasis: Qualifiers: Bronchiectasis type: uncomplicated Qualified Code(s): J47.9 - Bronchiectasis, uncomplicated Code(s): J47.9 - Bronchiectasis, uncomplicated Status: Acute (4) Chronic respiratory failure with hypoxia, on home oxygen therapy: Code(s): J96.11 - Chronic respiratory failure with hypoxia; Z99.81 - Dependence on supplemental oxygen Status: Acute Assessment and Plan: COPD with chronic hypoxic respiratory failure Bronchiectasis Small area bronchopneumonia left lower lobe. doxycycline for atypical coverage. Continue on DuoNeb scheduled. Sputum culture preliminary with rare Gram-positive cocci History of Mycobacterium avium complex (5) Chronic kidney disease, stage IV (severe): Code(s): N18.4 - Chronic kidney disease, stage 4 (severe) Status: Chronic Plan This is a 74-year-old male who presented with increased shortness of breath and urinary symptoms. He has been having urinary symptoms for couple of weeks as well as diarrhea for the last month. Reports subjective fever chills fatigue anxiety and abdominal pain. No chest pain. Has history of COPD with 4 L oxygen at baseline. History of DVT/PE on Eliquis. On ED evaluation his vitals were stable. Laboratory workup revealed WBC of 7.3 hemoglobin 10.4 platelet of 216. Chem panel showed sodium 140 potassium 4.5 chloride 100 bicarbonate 35 BUN 37 creatinine 2.5 blood glucose of 113. LFTs were normal. Urinalysis with more than 100 urine WBC. EKG showed with with nonspecific ST-T changes. Chest x-ray with no acute pulmonary findings. Severe emphysema of lungs with chronic pleural thickening of the left costophrenic angle. Severe atherosclerotic aorta noted. CT also demonstrates severe emphysematous changes of the lungs and findings suggestive of bronchopneumonia changes of the left lower lobe. Stable noncalcified nodules of the left lung. 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 History of Mycobacterium avium complex DVT prophylaxis heparin subQ Code status full code Subjective Date/time seen: 08/09/25 08:17 Interval history: 08/08:Patient is currently treated UTI and urinary retention. Patient is currently on cefepime. Patient reports he needs to undergo surgery for urethral stricture as OP. 08/09: Patient complains of congestion. Patient will complete cefepime tomorrow due to UTI. If needed can continue cefepime. Chest x-ray tomorrow a.m. Review of Systems Review of Systems: 12 systems were reviewed with pertinent positives and negatives per HPI. Except as documented in the HPI, all other systems were reviewed and are negative. All systems reviewed & are unremarkable except as noted in HPI and below Exam Narrative: GENERAL: The patient is well developed, not in acute distress HEENT: Nonicteric sclerae, PERRLA, EOMI. Oropharynx clear. Moist mucous membranes. Conjunctivae appear well perfused. CHEST: Chest wall is nontender. HEART: Regular rate and rhythm without murmur, rubs, or gallops LUNGS: Left basal crackles, no respiratory distress ABDOMEN: Soft, positive bowel sounds, non-tender, no organomegaly. SKIN: No rash, no excessive bruising, petechiae, or purpura. NEUROLOGIC: Cranial nerves II-XII intact, alert and oriented x 3, no gross motor deficits EXTREMITIES: no edema, cyanosis or clubbing Const: Other: Thin body habitus, no acute distress, appears stated age HENMT: Other: Mucous membranes are moist, no oral pharyngeal erythema, head is normocephalic atraumatic, nasal cannula in place Eyes: Other: Pupils are equal and reactive, no scleral icterus Neck: Other: No JVD, no lymphadenopathy Resp: Other: Coarse crackles at the a left lower lung base, no increased work of breathing GI: Other: Regular rate, regular rhythm, 2+ bilateral radial and pedal pulses : Other: Suprapubic fullness and discomfort with palpation, postvoid residual greater than 400 Skin: Other: No jaundice, positive pallor Neuro: Other: Alert oriented x4, speech is clear, no facial asymmetry, no localizing neurologic deficits noted during the course of conversation patient is able to stand unassisted Extrem: Other: No cyanosis, no edema, 5/5 procurement accountant strength bilaterally, patient is able to stand unassisted Psych: Other: Appropriate mood and affect, pleasant and cooperative, judgment and insight intact Objective Data Vital Signs Vital Signs: Vital Signs - 24 hr 08/08/25 14:00 08/08/25 19:44 08/08/25 20:00 Temperature 97.9 F 97.6 F Pulse Rate 75 70 71 Respiratory Rate 16 20 20 Blood Pressure 126/48 L 133/53 L Pulse Oximetry 100 94 94 Oxygen Delivery Nasal Cannula Oxygen Flow Rate 4 08/08/25 20:17 08/09/25 04:24 Temperature 98.0 F Pulse Rate 71 75 Respiratory Rate 20 Blood Pressure 117/59 L Pulse Oximetry 98 Oxygen Delivery Oxygen Flow Rate Intake/Output Intake/Output: Intake & Output 08/06/25 08/07/25 08/08/25 08/09/25 23:59 23:59 23:59 23:59 Intake Total 1050 1382 1210 240 Output Total 400 1450 900 250 Balance 650 -51 310 -10 Meds/Results Medications: Active Medications Generic Name Dose Route Start Last Admin Trade Name Freq PRN Reason Stop Dose Admin Acetaminophen 1,000 mg 08/02/25 04:44 08/06/25 16:11 Acetaminophen 500 Mg Tablet PO 1,000 mg Q6H PRN Administration Pain 1-3 or fever Albuterol/Ipratropium 3 ml 08/07/25 13:14 08/08/25 18:34 Ipratropium 0.5 Mg/Albuterol Sulfate 2.5 Mg (Base) Ampul.Neb 3 Ml INHALATION 3 ml Q4HRT PRN Administration Shortness Of Breath Or Wheezing Amlodipine Besylate 10 mg 08/02/25 09:00 08/09/25 08:10 Amlodipine Besylate 10 Mg Tablet PO 10 mg DAILY JUSTIN Administration Atorvastatin Calcium 80 mg 08/02/25 21:00 08/08/25 20:19 Atorvastatin 40 Mg Tablet PO 80 mg QHS JUSTIN Administration Carvedilol 25 mg 08/02/25 09:00 08/09/25 08:06 Carvedilol 25 Mg Tablet PO 25 mg Q12H JUSTIN Administration Cilostazol 50 mg 08/02/25 07:30 08/09/25 08:02 Cilostazol 50 Mg Tablet PO 50 mg 0730,1630 JUSTIN Administration Finasteride 5 mg 08/02/25 09:00 08/09/25 08:09 Finasteride 5 Mg Tablet PO 5 mg QAM JUSTIN Administration Fluticasone Propionate 1 spray 08/03/25 11:00 08/09/25 07:57 Fluticasone Propionate 0.05% Na Spr 16 Gm Btl (*Bkc) NASAL 1 spray Q12HR JUSTIN Administration Furosemide 40 mg 08/02/25 09:00 08/04/25 09:18 Furosemide 40 Mg Tablet PO 40 mg On Hold: 08/04/25 11:27 QAM JUSTIN Administration Gabapentin 300 mg 08/07/25 21:01 08/08/25 20:21 Gabapentin 300 Mg Capsule PO 300 mg BID PRN Administration neuropathy Guaifenesin 600 mg 08/02/25 09:00 08/09/25 08:09 Guaifenesin 12 Hr 600 Mg Tabcr PO 600 mg BID JUSTIN Administration Heparin Sodium (Porcine) 5,000 units 08/02/25 09:00 08/09/25 07:57 Heparin Sodium 5,000 Units/Ml Vial SUB-Q 5,000 units Q12HR JUSTIN Administration Cefepime HCl 1 gm/ Sodium 50 mls @ 100 mls/hr 08/02/25 09:00 08/09/25 08:10 Chloride IVPB 100 mls/hr Q12H JUSTIN Administration Loratadine 10 mg 08/02/25 05:06 Loratadine 10 Mg Tablet PO HS PRN allergy symptoms Losartan Potassium 50 mg 08/02/25 09:00 08/04/25 09:18 Losartan Potassium 50 Mg Tablet PO 50 mg On Hold: 08/04/25 11:27 DAILY JUSTIN Administration Multivitamins/Minerals 1 tab 08/02/25 09:00 08/09/25 08:10 Multivitamins /C Lutein (Centrum Silver) Tablet *Bkc PO 1 tab DAILY JUSTIN Administration Phenol 1 spray 08/03/25 10:49 08/03/25 11:24 Phenol/Sod Pheno [place] (*Bkc) MUCOUS MEM 1 spray PRN PRN Administration Sore Throat Polyethylene Glycol 17 gm 08/02/25 04:49 Polyethylene Glycol 3350 17 Gm Powd.Pack PO DAILY PRN Constipation Potassium Chloride 10 meq 08/02/25 08:00 08/07/25 08:47 Potassium Chloride 10 Meq Er Tablet PO 10 meq On Hold: 08/07/25 13:13 DAILY@0800 JUSTIN Administration Comment: HOLD DUE TO K LEVEL OF 5 Roflumilast 500 mcg 08/02/25 09:00 08/09/25 08:09 Roflumilast 500 Mcg Tablet PO 500 mcg DAILY JUSTIN Administration Tamsulosin HCl 0.8 mg 08/02/25 21:00 08/08/25 20:17 Tamsulosin Hcl 0.4 Mg Capsule PO 0.8 mg HS [facility] Administration Tramadol HCl 50 mg 08/02/25 04:49 08/05/25 17:56 Tramadol Hcl (*Crx) 50 Mg Tablet PO 50 mg Q6H PRN Administration pain 4-10 Umeclidinium/Vilanterol 1 puff 08/02/25 08:00 08/08/25 16:20 Umeclidinium/Vilanterol 62.5-25 Mcg Ellipta INHALATION Not Given DAILYRT [facility] Radiology Results: ITS Impressions Chest X-Ray 08/01/25 15:23 IMPRESSION: 1. No acute pulmonary findings. Severe emphysema of lungs with chronic pleural thickening of left costophrenic angle. Severe atherosclerotic aorta. Chest/Abdomen/Pelvis CT 08/01/25 18:13 IMPRESSION: 1. Severe emphysematous changes of lungs. Peribronchial thickening of left lung base with mild bronchiectasis as mentioned above. Findings are suggestive of bronchopneumonic changes in the left lower lobe. Stable noncalcified nodules of left lung. Continued follow-up by CT scan at 6 months is recommended. 2. Diffuse abdominal aortic aneurysm measuring 4 cm in diameter at L1-2 and 3.6 cm at L4-5 level. 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 3 severe calcific atherosclerotic disease of the iliac arteries on both sides right worse than the left. The evaluation of pelvis limited by artifacts from bilateral hip arthroplasty. Pelvis Ultrasound 08/04/25 15:55 IMPRESSION: [place] catheter within the bladder Labs Labs: Laboratory Results - last 24 hr 08/09/25 05:20 WBC 5.4 RBC 2.72 L Hgb 7.8 L Hct 25.8 L MCV 94.9 MCH 28.7 MCHC 30.2 L RDW 14.2 Plt Count 125 L MPV 10.0 Sodium 133 L Potassium 5.2 H Chloride 107 Carbon Dioxide 24 Anion Gap 2 L BUN 49 H Creatinine 2.39 H Estim Creat Clear Calc 23 Estimated GFR 27 L Glucose 86 Calcium 8.9 Total Bilirubin 0.4 AST 24 ALT 14 Alkaline Phosphatase 87 Total Protein 6.1 L Albumin 3.0 L Quality VTE Prophylaxis VTE prophylaxis: pharmacologic ordered (Heparin 5000 units subQ q.12 hours) Hospitalist [facility] Advance Care Plan I have confirmed that the patient's Advanced Care Plan is present, code status is documented, or surrogate decision maker is listed in patient medical record.: Yes Medication Reconciliation I have utilized all available resources to obtain, update and review the patients current medications (includes all prescriptions, OTC, herbals, cannabis, and nutritional supplements).: Yes
[2025-08-09] MEDS: UMECLIDINIUM/VILANTEROL 62.5-25 MCG ELLIPTA 1 PUFF INHALATION (08:31)
[2025-08-09] MEDS: IPRATROPIUM 0.5 MG/ALBUTEROL SULFATE 2.5 MG (BASE) AMPUL.NEB 3 ML INHALATION ×3 (08:32→19:57)
[2025-08-09] MEDS: SODIUM ZIRCONIUM CYCLOSILICATE 10 GM POWD.PACK PO (10:32)
--- NOTE | 2025-08-09 15:38 | WPDINFPN2 ---
Progress Note: A&P Assessment and Plan (1) Urinary tract infection due to Pseudomonas aeruginosa: Code(s): N39.0 - Urinary tract infection, site not specified; B96.5 - Pseudomonas (aeruginosa) (mallei) (pseudomallei) as the cause of diseases classified elsewhere Status: Acute Plan ASSESSMENT: 1. PSAR UTI is setting of BPH and penile stricture--continue cefepime 2. chronic respiratory failure on 4L o2 NC at baseline 3. COPD, bronchiectasis, pulmonary MAC--no treatment-->watchful waiting 4. possible pneumonia; MRSA nares neg 5. CKD 6. PE/DVT RECOMMENDATIONS: -continue cefepime through tomorrow. will stop as long as resp status is better overall. will follow Sputum cx. d/w pharmacy Pt was seen via video telehealth consultation with the assistance of staff. Chart, data and patient info reviewed. Patient was located at [facility] while I was in my [place] office. Pt gave consent. Subjective Date/time seen: 08/09/25 15:38 Exam Narrative: NAD, non-toxic on 4.5L O2 NC abd soft NT left flank tender Objective Data Vital Signs Vital Signs: Vital Signs - 24 hr 08/08/25 19:44 08/08/25 20:00 08/08/25 20:17 Temperature 36.4 C Pulse Rate 70 71 71 Respiratory Rate 20 20 Blood Pressure 133/53 L Pulse Oximetry 94 94 Oxygen Delivery Nasal Cannula Oxygen Flow Rate 4 08/09/25 04:24 08/09/25 08:00 08/09/25 08:33 Temperature 36.7 C Pulse Rate 75 75 75 Respiratory Rate 20 20 20 Blood Pressure 117/59 L Pulse Oximetry 98 98 Oxygen Delivery Nasal Cannula Oxygen Flow Rate 4 08/09/25 08:34 08/09/25 14:00 Temperature 36.4 C Pulse Rate 88 Respiratory Rate 16 Blood Pressure 146/59 H Pulse Oximetry 98 98 Oxygen Delivery Nasal Cannula Oxygen Flow Rate 4 Intake/Output Intake/Output: Intake & Output 08/06/25 08/07/25 08/08/25 08/09/25 23:59 23:59 23:59 23:59 Intake Total 1050 1382 1210 720 Output Total 400 1450 900 250 Balance 650 -68 310 470 Meds/Results Medications: Active Medications Generic Name Dose Route Start Last Admin Trade Name Freq PRN Reason Stop Dose Admin Acetaminophen 1,000 mg 08/02/25 04:44 08/06/25 16:11 Acetaminophen 500 Mg Tablet PO 1,000 mg Q6H PRN Administration Pain 1-3 or fever Albuterol/Ipratropium 3 ml 08/07/25 13:14 08/09/25 08:32 Ipratropium 0.5 Mg/Albuterol Sulfate 2.5 Mg (Base) Ampul.Neb 3 Ml INHALATION 3 ml Q4HRT PRN Administration Shortness Of Breath Or Wheezing Amlodipine Besylate 10 mg 08/02/25 09:00 08/09/25 08:10 Amlodipine Besylate 10 Mg Tablet PO 10 mg DAILY JUSTIN Administration Atorvastatin Calcium 80 mg 08/02/25 21:00 08/08/25 20:19 Atorvastatin 40 Mg Tablet PO 80 mg QHS JUSTIN Administration Carvedilol 25 mg 08/02/25 09:00 08/09/25 08:06 Carvedilol 25 Mg Tablet PO 25 mg Q12H JUSTIN Administration Cilostazol 50 mg 08/02/25 07:30 08/09/25 08:02 Cilostazol 50 Mg Tablet PO 50 mg 0730,1630 JUSTIN Administration Finasteride 5 mg 08/02/25 09:00 08/09/25 08:09 Finasteride 5 Mg Tablet PO 5 mg QAM JUSTIN Administration Fluticasone Propionate 1 spray 08/03/25 11:00 08/09/25 07:57 Fluticasone Propionate 0.05% Na Spr 16 Gm Btl (*Bkc) NASAL 1 spray Q12HR JUSTIN Administration Furosemide 40 mg 08/02/25 09:00 08/04/25 09:18 Furosemide 40 Mg Tablet PO 40 mg On Hold: 08/04/25 11:27 QAM JUSTIN Administration Gabapentin 300 mg 08/07/25 21:01 08/08/25 20:21 Gabapentin 300 Mg Capsule PO 300 mg BID PRN Administration neuropathy Guaifenesin 600 mg 08/02/25 09:00 08/09/25 08:09 Guaifenesin 12 Hr 600 Mg Tabcr PO 600 mg BID JUSTIN Administration Heparin Sodium (Porcine) 5,000 units 08/02/25 09:00 08/09/25 07:57 Heparin Sodium 5,000 Units/Ml Vial SUB-Q 5,000 units Q12HR JUSTIN Administration Cefepime HCl 1 gm/ Sodium 50 mls @ 100 mls/hr 08/02/25 09:00 08/09/25 08:10 Chloride IVPB 100 mls/hr Q12H JUSTIN Administration Loratadine 10 mg 08/02/25 05:06 Loratadine 10 Mg Tablet PO HS PRN allergy symptoms Losartan Potassium 50 mg 08/02/25 09:00 08/04/25 09:18 Losartan Potassium 50 Mg Tablet PO 50 mg On Hold: 08/04/25 11:27 DAILY JUSTIN Administration Multivitamins/Minerals 1 tab 08/02/25 09:00 08/09/25 08:10 Multivitamins /C Lutein (Centrum Silver) Tablet *Bkc PO 1 tab DAILY JUSTIN Administration Phenol 1 spray 08/03/25 10:49 08/03/25 11:24 Phenol/Sod Pheno [place] (*Bkc) MUCOUS MEM 1 spray PRN PRN Administration Sore Throat Polyethylene Glycol 17 gm 08/02/25 04:49 Polyethylene Glycol 3350 17 Gm Powd.Pack PO DAILY PRN Constipation Potassium Chloride 10 meq 08/02/25 08:00 08/07/25 08:47 Potassium Chloride 10 Meq Er Tablet PO 10 meq On Hold: 08/07/25 13:13 DAILY@0800 JUSTIN Administration Comment: HOLD DUE TO K LEVEL OF 5 Roflumilast 500 mcg 08/02/25 09:00 08/09/25 08:09 Roflumilast 500 Mcg Tablet PO 500 mcg DAILY JUSTIN Administration Tamsulosin HCl 0.8 mg 08/02/25 21:00 08/08/25 20:17 Tamsulosin Hcl 0.4 Mg Capsule PO 0.8 mg HS JUSTIN Administration Tramadol HCl 50 mg 08/02/25 04:49 08/05/25 17:56 Tramadol Hcl (*Crx) 50 Mg Tablet PO 50 mg Q6H PRN Administration pain 4-10 Umeclidinium/Vilanterol 1 puff 08/02/25 08:00 08/09/25 08:31 Umeclidinium/Vilanterol 62.5-25 Mcg Ellipta INHALATION 1 puff DAILYRT JUSTIN Administration Radiology Results: ITS Impressions Chest X-Ray 08/01/25 15:23 IMPRESSION: 1. No acute pulmonary findings. Severe emphysema of lungs with chronic pleural thickening of left costophrenic angle. Severe atherosclerotic aorta. Chest/Abdomen/Pelvis CT 08/01/25 18:13 IMPRESSION: 1. Severe emphysematous changes of lungs. Peribronchial thickening of left lung base with mild bronchiectasis as mentioned above. Findings are suggestive of bronchopneumonic changes in the left lower lobe. Stable noncalcified nodules of left lung. Continued follow-up by CT scan at 6 months is recommended. 2. Diffuse abdominal aortic aneurysm measuring 4 cm in diameter at L1-2 and 3.6 cm at L4-5 level. 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 3 severe calcific atherosclerotic disease of the iliac arteries on both sides right worse than the left. The evaluation of pelvis limited by artifacts from bilateral hip arthroplasty. Pelvis Ultrasound 08/04/25 15:55 IMPRESSION: [place] catheter within the bladder Labs Labs: Laboratory Results - last 24 hr 08/09/25 05:20 WBC 5.4 RBC 2.72 L Hgb 7.8 L Hct 25.8 L MCV 94.9 MCH 28.7 MCHC 30.2 L RDW 14.2 Plt Count 125 L MPV 10.0 Sodium 133 L Potassium 5.2 H Chloride 107 Carbon Dioxide 24 Anion Gap 2 L BUN 49 H Creatinine 2.39 H Estim Creat Clear Calc 23 Estimated GFR 27 L Glucose 86 Calcium 8.9 Total Bilirubin 0.4 AST 24 ALT 14 Alkaline Phosphatase 87 Total Protein 6.1 L Albumin 3.0 L
[2025-08-09] MEDS: ATORVASTATIN 40 MG TABLET 80 MG PO (20:38)
[2025-08-09] MEDS: TAMSULOSIN HCL 0.4 MG CAPSULE 0.8 MG PO (20:38)
[2025-08-09] MEDS: GABAPENTIN 300 MG CAPSULE PO (20:38)
[2025-08-10] VITALS (12 sets, daily range): BP systolic 137–151; BP diastolic 53–64; PULSE 63–96; RESP 16–20; TEMP 36.3–36.6; O2SAT 93–98
[2025-08-10] MEDS: ROFLUMILAST 500 MCG TABLET PO (08:48)
[2025-08-10] MEDS: MULTIVITAMINS /C LUTEIN (CENTRUM SILVER) TABLET *BKC 1 TAB PO (08:48)
[2025-08-10] MEDS: FINASTERIDE 5 MG TABLET PO (08:48)
[2025-08-10] MEDS: guaiFENesin 12 HR 600 MG TABCR PO ×2 (08:49→16:51)
[2025-08-10] MEDS: CEFEPIME 1 GM in SODIUM CHLORIDE 0.9% IV 50 ML 100 ML IVPB ×2 (08:50→20:54)
[2025-08-10] MEDS: FLUTICASONE PROPIONATE 0.05% NA SPR 16 GM BTL (*BKC) 1 SPRAY NASAL ×2 (08:50→20:56)
[2025-08-10] MEDS: IPRATROPIUM 0.5 MG/ALBUTEROL SULFATE 2.5 MG (BASE) AMPUL.NEB 3 ML INHALATION ×2 (11:55→20:15)
--- NOTE | 2025-08-10 14:59 | PM.IMPN2 ---
Assessment and Plan Assessment and Plan (1) Urinary tract infection due to Pseudomonas aeruginosa: Code(s): N39.0 - Urinary tract infection, site not specified; B96.5 - Pseudomonas (aeruginosa) (mallei) (pseudomallei) as the cause of diseases classified elsewhere Status: Acute Assessment and Plan: Recent urine culture as outpatient showing Pseudomonas resistant to all oral antibiotics Patient currently on IV cefepime until 08/10 ID on board (2) Urinary retention with incomplete bladder emptying: Code(s): R33.9 - Retention of urine, unspecified Status: Acute Assessment and Plan: BPH and history of urinary retention Currently on Flomax and Proscar Bladder training Currently on [place] (3) Bronchiectasis: Qualifiers: Bronchiectasis type: uncomplicated Qualified Code(s): J47.9 - Bronchiectasis, uncomplicated Code(s): J47.9 - Bronchiectasis, uncomplicated Status: Acute (4) Chronic respiratory failure with hypoxia, on home oxygen therapy: Code(s): J96.11 - Chronic respiratory failure with hypoxia; Z99.81 - Dependence on supplemental oxygen Status: Acute Assessment and Plan: COPD with chronic hypoxic respiratory failure Bronchiectasis Small area bronchopneumonia left lower lobe. doxycycline for atypical coverage. Continue on DuoNeb scheduled. Sputum culture with Pseudomonas aeruginosa. Will continue with cefepime History of Mycobacterium avium complex (5) Chronic kidney disease, stage IV (severe): Code(s): N18.4 - Chronic kidney disease, stage 4 (severe) Status: Chronic Assessment and Plan: Chest x-ray with congestive changes. Will resume Lasix Plan This is a 74-year-old male who presented with increased shortness of breath and urinary symptoms. He has been having urinary symptoms for couple of weeks as well as diarrhea for the last month. Reports subjective fever chills fatigue anxiety and abdominal pain. No chest pain. Has history of COPD with 4 L oxygen at baseline. History of DVT/PE on Eliquis. On ED evaluation his vitals were stable. Laboratory workup revealed WBC of 7.3 hemoglobin 10.4 platelet of 216. Chem panel showed sodium 140 potassium 4.5 chloride 100 bicarbonate 35 BUN 37 creatinine 2.5 blood glucose of 113. LFTs were normal. Urinalysis with more than 100 urine WBC. EKG showed with with nonspecific ST-T changes. Chest x-ray with no acute pulmonary findings. Severe emphysema of lungs with chronic pleural thickening of the left costophrenic angle. Severe atherosclerotic aorta noted. CT also demonstrates severe emphysematous changes of the lungs and findings suggestive of bronchopneumonia changes of the left lower lobe. Stable noncalcified nodules of the left lung. 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 History of Mycobacterium avium complex DVT prophylaxis heparin subQ Code status full code Subjective Date/time seen: 08/10/25 14:59 Interval history: 08/08:Patient is currently treated UTI and urinary retention. Patient is currently on cefepime. Patient reports he needs to undergo surgery for urethral stricture as OP. 08/09: Patient complains of congestion. Patient will complete cefepime tomorrow due to UTI. If needed can continue cefepime. Chest x-ray tomorrow a.m. 08/10: Respiratory mcdaniel he is doing a little worse. Reports some congestion and increased cough. Denies any other complaints. Review of Systems Review of Systems: All systems reviewed & are unremarkable except as noted in HPI and below Exam Narrative: GENERAL: The patient is well developed, not in acute distress HEENT: Nonicteric sclerae, PERRLA, EOMI. Oropharynx clear. Moist mucous membranes. Conjunctivae appear well perfused. CHEST: Chest wall is nontender. HEART: Regular rate and rhythm without murmur, rubs, or gallops LUNGS: Bilateral basal crackles, no respiratory distress ABDOMEN: Soft, positive bowel sounds, non-tender, no organomegaly. SKIN: No rash, no excessive bruising, petechiae, or purpura. NEUROLOGIC: Cranial nerves II-XII intact, alert and oriented x 3, no gross motor deficits EXTREMITIES: no edema, cyanosis or clubbing Skin: Other: No jaundice, positive pallor Objective Data Vital Signs Vital Signs: Vital Signs - 24 hr 08/09/25 15:42 08/09/25 15:49 08/09/25 19:58 Temperature Pulse Rate 72 81 75 Respiratory Rate 18 19 18 Blood Pressure Pulse Oximetry Oxygen Delivery Oxygen Flow Rate 08/09/25 20:00 08/09/25 20:00 08/09/25 20:04 Temperature Pulse Rate 80 77 Respiratory Rate 18 18 Blood Pressure Pulse Oximetry 97 97 Oxygen Delivery Nasal Cannula Nasal Cannula Oxygen Flow Rate 4 4 08/09/25 20:40 08/09/25 21:01 08/10/25 03:09 Temperature 98.2 F 97.4 F L Pulse Rate 80 74 96 Respiratory Rate 20 20 Blood Pressure 148/52 H 151/64 H Pulse Oximetry 100 93 Oxygen Delivery Oxygen Flow Rate 08/10/25 08:48 08/10/25 09:05 08/10/25 11:55 Temperature Pulse Rate 86 76 Respiratory Rate 18 Blood Pressure Pulse Oximetry 94 Oxygen Delivery Nasal Cannula Oxygen Flow Rate 3 08/10/25 11:58 08/10/25 12:03 08/10/25 13:48 Temperature 97.4 F L Pulse Rate 68 78 Respiratory Rate 18 18 Blood Pressure 137/60 Pulse Oximetry 98 97 Oxygen Delivery Nasal Cannula Oxygen Flow Rate 3 Intake/Output Intake/Output: Intake & Output 08/07/25 08/08/25 08/09/25 08/10/25 23:59 23:59 23:59 23:59 Intake Total 1382 1210 1060 1140 Output Total 1450 900 650 700 Balance -68 310 410 440 Meds/Results Medications: Active Medications Generic Name Dose Route Start Last Admin Trade Name Freq PRN Reason Stop Dose Admin Acetaminophen 1,000 mg 08/02/25 04:44 08/06/25 16:11 Acetaminophen 500 Mg Tablet PO 1,000 mg Q6H PRN Administration Pain 1-3 or fever Albuterol/Ipratropium 3 ml 08/07/25 13:14 08/09/25 19:57 Ipratropium 0.5 Mg/Albuterol Sulfate 2.5 Mg (Base) Ampul.Neb 3 Ml INHALATION 3 ml Q4HRT PRN Administration Shortness Of Breath Or Wheezing Albuterol/Ipratropium 3 ml 08/10/25 14:00 08/10/25 11:55 Ipratropium 0.5 Mg/Albuterol Sulfate 2.5 Mg (Base) Ampul.Neb 3 Ml INHALATION 3 ml Q6HRT JUSTIN Administration Amlodipine Besylate 10 mg 08/02/25 09:00 08/10/25 08:48 Amlodipine Besylate 10 Mg Tablet PO 10 mg DAILY JUSTIN Administration Atorvastatin Calcium 80 mg 08/02/25 21:00 08/09/25 20:38 Atorvastatin 40 Mg Tablet PO 80 mg QHS JUSTIN Administration Carvedilol 25 mg 08/02/25 09:00 08/10/25 08:48 Carvedilol 25 Mg Tablet PO 25 mg Q12H JUSTIN Administration Cilostazol 50 mg 08/02/25 07:30 08/10/25 12:23 Cilostazol 50 Mg Tablet PO 50 mg 0730,1630 JUSTIN Administration Finasteride 5 mg 08/02/25 09:00 08/10/25 08:48 Finasteride 5 Mg Tablet PO 5 mg QAM JUSTIN Administration Fluticasone Propionate 1 spray 08/03/25 11:00 08/10/25 08:50 Fluticasone Propionate 0.05% Na Spr 16 Gm Btl (*Bkc) NASAL 1 spray Q12HR JUSTIN Administration Furosemide 40 mg 08/02/25 09:00 08/04/25 09:18 Furosemide 40 Mg Tablet PO 40 mg On Hold: 08/04/25 11:27 QAM JUSTIN Administration Gabapentin 300 mg 08/07/25 21:01 08/09/25 20:38 Gabapentin 300 Mg Capsule PO 300 mg BID PRN Administration neuropathy Guaifenesin 600 mg 08/02/25 09:00 08/10/25 08:49 Guaifenesin 12 Hr 600 Mg Tabcr PO 600 mg BID JUSTIN Administration Heparin Sodium (Porcine) 5,000 units 08/02/25 09:00 08/10/25 08:50 Heparin Sodium 5,000 Units/Ml Vial SUB-Q 5,000 units Q12HR JUSTIN Administration Cefepime HCl 1 gm/ Sodium 50 mls @ 100 mls/hr 08/02/25 09:00 08/10/25 08:50 Chloride IVPB 100 mls/hr Q12H JUSTIN Administration Loratadine 10 mg 08/02/25 05:06 Loratadine 10 Mg Tablet PO HS PRN allergy symptoms Losartan Potassium 50 mg 08/02/25 09:00 08/04/25 09:18 Losartan Potassium 50 Mg Tablet PO 50 mg On Hold: 08/04/25 11:27 DAILY JUSTIN Administration Multivitamins/Minerals 1 tab 08/02/25 09:00 08/10/25 08:48 Multivitamins /C Lutein (Centrum Silver) Tablet *Bkc PO 1 tab DAILY JUSTIN Administration Phenol 1 spray 08/03/25 10:49 08/03/25 11:24 Phenol/Sod Pheno [place] (*Bkc) MUCOUS MEM 1 spray PRN PRN Administration Sore Throat Polyethylene Glycol 17 gm 08/02/25 04:49 08/10/25 08:48 Polyethylene Glycol 3350 17 Gm Powd.Pack PO 17 gm DAILY PRN Administration Constipation Potassium Chloride 10 meq 08/02/25 08:00 08/07/25 08:47 Potassium Chloride 10 Meq Er Tablet PO 10 meq On Hold: 08/07/25 13:13 DAILY@0800 JUSTIN Administration Comment: HOLD DUE TO K LEVEL OF 5 Roflumilast 500 mcg 08/02/25 09:00 08/10/25 08:48 Roflumilast 500 Mcg Tablet PO 500 mcg DAILY JUSTIN Administration Tamsulosin HCl 0.8 mg 08/02/25 21:00 08/09/25 20:38 Tamsulosin Hcl 0.4 Mg Capsule PO 0.8 mg HS JUSTIN Administration Tramadol HCl 50 mg 08/02/25 04:49 08/05/25 17:56 Tramadol Hcl (*Crx) 50 Mg Tablet PO 50 mg Q6H PRN Administration pain 4-10 Umeclidinium/Vilanterol 1 puff 08/02/25 08:00 08/10/25 07:50 Umeclidinium/Vilanterol 62.5-25 Mcg Ellipta INHALATION Not Given DAILYRT [facility] Radiology Results: ITS Impressions Chest/Abdomen/Pelvis CT 08/01/25 18:13 IMPRESSION: 1. Severe emphysematous changes of lungs. Peribronchial thickening of left lung base with mild bronchiectasis as mentioned above. Findings are suggestive of bronchopneumonic changes in the left lower lobe. Stable noncalcified nodules of left lung. Continued follow-up by CT scan at 6 months is recommended. 2. Diffuse abdominal aortic aneurysm measuring 4 cm in diameter at L1-2 and 3.6 cm at L4-5 level. 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 3 severe calcific atherosclerotic disease of the iliac arteries on both sides right worse than the left. The evaluation of pelvis limited by artifacts from bilateral hip arthroplasty. Pelvis Ultrasound 08/04/25 15:55 IMPRESSION: [place] catheter within the bladder Chest X-Ray 08/10/25 12:15 Impression: 1: Developing coarse interstitial infiltrates bilaterally which may reflect mild edema, atypical pneumonia and/or chronic interstitial lung disease. Labs Labs: Laboratory Results - last 24 hr 08/09/25 05:20 WBC 5.4 RBC 2.72 L Hgb 7.8 L Hct 25.8 L MCV 94.9 MCH 28.7 MCHC 30.2 L RDW 14.2 Plt Count 125 L MPV 10.0 Sodium 133 L Potassium 5.2 H Chloride 107 Carbon Dioxide 24 Anion Gap 2 L BUN 49 H Creatinine 2.39 H Estim Creat Clear Calc 23 Estimated GFR 27 L Glucose 86 Calcium 8.9 Total Bilirubin 0.4 AST 24 ALT 14 Alkaline Phosphatase 87 Total Protein 6.1 L Albumin 3.0 L Quality VTE Prophylaxis VTE prophylaxis: pharmacologic ordered (Heparin 5000 units subQ q.12 hours) Hospitalist MIPS Advance Care Plan I have confirmed that the patient's Advanced Care Plan is present, code status is documented, or surrogate decision maker is listed in patient medical record.: Yes Medication Reconciliation I have utilized all available resources to obtain, update and review the patients current medications (includes all prescriptions, OTC, herbals, cannabis, and nutritional supplements).: Yes
[2025-08-10] MEDS: GABAPENTIN 300 MG CAPSULE PO (20:55)
[2025-08-10] MEDS: TAMSULOSIN HCL 0.4 MG CAPSULE 0.8 MG PO (20:55)
[2025-08-10] MEDS: ATORVASTATIN 40 MG TABLET 80 MG PO (20:55)
[2025-08-11] VITALS (16 sets, daily range): BP systolic 128–144; BP diastolic 52–65; PULSE 63–88; RESP 14–20; TEMP 36.2–36.5; O2SAT 95–100
[2025-08-11] MEDS: IPRATROPIUM 0.5 MG/ALBUTEROL SULFATE 2.5 MG (BASE) AMPUL.NEB 3 ML INHALATION ×4 (02:06→20:43)
[2025-08-11 05:27] LABS: Hematocrit 27.1 % (42.0-52.0); Hemoglobin 8.2 g/dL (14.0-18.0); Immature Granulocyte Percent A 0.6 % (0-0.5); Immature Platelet Fraction Pct 3.0 % (0.9-11.2); Lymphocytes Absolute Auto 0.67 K/mm3 (0.9-3.2); Mean Corpuscular HGB Conc 30.3 g/dl (32-36); Mean Corpuscular Hemoglobin 28.9 pg (26-34); Mean Corpuscular Volume 95.4 fl (80-100); Nucleated Red Blood Cells Absolute Auto 0.000 K/mm3 (0.0-0.012); Nucleated Red Blood Cells Perc 0.0 % (0.0-0.2); Platelet Count Result 133 k/mm3 (150-375); Red Blood Count 2.84 M/mm3 (4.6-6.20); White Blood Count 5.4 K/mm3 (4.5-10.0)
[2025-08-11 05:43] LABS: Alanine Aminotransferase 16 U/L (6-50); Albumin Level 3.0 g/dL (3.5-5.1); Alkaline Phosphatase 92 U/L (38-126); Anion Gap 4 mmol/L (4-12); Aspartate Amino Transferase 24 U/L (17-59); Bilirubin,Total 0.4 mg/dL (0.2-1.3); Blood Urea Nitrogen 45 mg/dL (9-20); Calcium 8.8 mg/dL (8.4-10.2); Carbon Dioxide 27 mmol/L (22-30); Chloride 104 mmol/L (98-107); Estimated CRCL calculation 26 ml/min; Estimated Glomerular Filt Rate 31; Glucose 91 mg/dL (65-110); Magnesium 1.9 mg/dL (1.6-2.3); Potassium 5.0 mmol/L (3.4-5.0); Sodium 135 mmol/L (137-145); Total Protein 6.2 g/dL (6.3-8.2)
[2025-08-11] MEDS: guaiFENesin 12 HR 600 MG TABCR PO ×2 (08:26→17:13)
[2025-08-11] MEDS: MULTIVITAMINS /C LUTEIN (CENTRUM SILVER) TABLET *BKC 1 TAB PO (08:26)
[2025-08-11] MEDS: FUROSEMIDE 40 MG TABLET PO (08:26)
[2025-08-11] MEDS: CEFEPIME 1 GM in SODIUM CHLORIDE 0.9% IV 50 ML 100 ML IVPB ×2 (08:26→21:42)
[2025-08-11] MEDS: ROFLUMILAST 500 MCG TABLET PO (08:26)
[2025-08-11] MEDS: FINASTERIDE 5 MG TABLET PO (08:26)
[2025-08-11] MEDS: UMECLIDINIUM/VILANTEROL 62.5-25 MCG ELLIPTA 1 PUFF INHALATION (08:27)
[2025-08-11] MEDS: FLUTICASONE PROPIONATE 0.05% NA SPR 16 GM BTL (*BKC) 1 SPRAY NASAL ×2 (08:52→21:40)
--- NOTE | 2025-08-11 12:47 | PM.IMPN2 ---
Assessment and Plan Assessment and Plan (1) Urinary tract infection due to Pseudomonas aeruginosa: Code(s): N39.0 - Urinary tract infection, site not specified; B96.5 - Pseudomonas (aeruginosa) (mallei) (pseudomallei) as the cause of diseases classified elsewhere Status: Acute Assessment and Plan: Recent urine culture as outpatient showing Pseudomonas resistant to all oral antibiotics Patient currently on IV cefepime ID on board (2) Urinary retention with incomplete bladder emptying: Code(s): R33.9 - Retention of urine, unspecified Status: Acute Assessment and Plan: BPH and history of urinary retention Currently on Flomax and Proscar Bladder training Currently on [place] (3) Bronchiectasis: Qualifiers: Bronchiectasis type: uncomplicated Qualified Code(s): J47.9 - Bronchiectasis, uncomplicated Code(s): J47.9 - Bronchiectasis, uncomplicated Status: Acute (4) Chronic respiratory failure with hypoxia, on home oxygen therapy: Code(s): J96.11 - Chronic respiratory failure with hypoxia; Z99.81 - Dependence on supplemental oxygen Status: Acute Assessment and Plan: COPD with chronic hypoxic respiratory failure Bronchiectasis Small area bronchopneumonia left lower lobe. doxycycline for atypical coverage. Continue on DuoNeb scheduled. Sputum culture with Pseudomonas aeruginosa. Will continue with cefepime History of Mycobacterium avium complex (5) Chronic kidney disease, stage IV (severe): Code(s): N18.4 - Chronic kidney disease, stage 4 (severe) Status: Chronic Assessment and Plan: Chest x-ray with congestive changes. Will resume Lasix Plan This is a 74-year-old male who presented with increased shortness of breath and urinary symptoms. He has been having urinary symptoms for couple of weeks as well as diarrhea for the last month. Reports subjective fever chills fatigue anxiety and abdominal pain. No chest pain. Has history of COPD with 4 L oxygen at baseline. History of DVT/PE on Eliquis. On ED evaluation his vitals were stable. Laboratory workup revealed WBC of 7.3 hemoglobin 10.4 platelet of 216. Chem panel showed sodium 140 potassium 4.5 chloride 100 bicarbonate 35 BUN 37 creatinine 2.5 blood glucose of 113. LFTs were normal. Urinalysis with more than 100 urine WBC. EKG showed with with nonspecific ST-T changes. Chest x-ray with no acute pulmonary findings. Severe emphysema of lungs with chronic pleural thickening of the left costophrenic angle. Severe atherosclerotic aorta noted. CT also demonstrates severe emphysematous changes of the lungs and findings suggestive of bronchopneumonia changes of the left lower lobe. Stable noncalcified nodules of the left lung. 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 History of Mycobacterium avium complex DVT prophylaxis heparin subQ Code status full code Subjective Date/time seen: 08/11/25 12:47 Interval history: 08/08:Patient is currently treated UTI and urinary retention. Patient is currently on cefepime. Patient reports he needs to undergo surgery for urethral stricture as OP. 08/09: Patient complains of congestion. Patient will complete cefepime tomorrow due to UTI. If needed can continue cefepime. Chest x-ray tomorrow a.m. 08/10: Respiratory mcdaniel he is doing a little worse. Reports some congestion and increased cough. Denies any other complaints. 08/11: Patient was seen during the morning rounds today. Patient is feeling slightly better. Decreased shortness of breath. No chest pain. Review of Systems Review of Systems: 12 systems were reviewed with pertinent positives and negatives per HPI. Except as documented in the HPI, all other systems were reviewed and are negative. All systems reviewed & are unremarkable except as noted in HPI and below Exam Narrative: GENERAL: The patient is well developed, not in acute distress HEENT: Nonicteric sclerae, PERRLA, EOMI. Oropharynx clear. Moist mucous membranes. Conjunctivae appear well perfused. CHEST: Chest wall is nontender. HEART: Regular rate and rhythm without murmur, rubs, or gallops LUNGS: Bilateral basal crackles, no respiratory distress ABDOMEN: Soft, positive bowel sounds, non-tender, no organomegaly. SKIN: No rash, no excessive bruising, petechiae, or purpura. NEUROLOGIC: Cranial nerves II-XII intact, alert and oriented x 3, no gross motor deficits EXTREMITIES: no edema, cyanosis or clubbing Const: Other: Thin body habitus, no acute distress, appears stated age HENMT: Other: Mucous membranes are moist, no oral pharyngeal erythema, head is normocephalic atraumatic, nasal cannula in place Eyes: Other: Pupils are equal and reactive, no scleral icterus Neck: Other: No JVD, no lymphadenopathy Resp: Other: Coarse crackles at the a left lower lung base, no increased work of breathing GI: Other: Regular rate, regular rhythm, 2+ bilateral radial and pedal pulses : Other: Suprapubic fullness and discomfort with palpation, postvoid residual greater than 400 Skin: Other: No jaundice, positive pallor Neuro: Other: Alert oriented x4, speech is clear, no facial asymmetry, no localizing neurologic deficits noted during the course of conversation patient is able to stand unassisted Extrem: Other: No cyanosis, no edema, 5/5 surg nurse strength bilaterally, patient is able to stand unassisted Psych: Other: Appropriate mood and affect, pleasant and cooperative, judgment and insight intact Objective Data Vital Signs Vital Signs: Vital Signs - 24 hr 08/10/25 13:48 08/10/25 20:00 08/10/25 20:15 Temperature 36.3 C L Pulse Rate 78 63 72 Respiratory Rate 18 16 18 Blood Pressure 137/60 Pulse Oximetry 97 95 Oxygen Delivery Nasal Cannula Oxygen Flow Rate 4 08/10/25 20:29 08/10/25 20:29 08/10/25 20:52 Temperature 36.6 C Pulse Rate 72 69 73 Respiratory Rate 18 16 Blood Pressure 144/53 H Pulse Oximetry 94 95 Oxygen Delivery Nasal Cannula Oxygen Flow Rate 3.5 08/10/25 21:02 08/11/25 02:06 08/11/25 02:14 Temperature Pulse Rate 63 65 66 Respiratory Rate 18 18 Blood Pressure Pulse Oximetry Oxygen Delivery Oxygen Flow Rate 08/11/25 04:28 08/11/25 06:00 08/11/25 08:16 Temperature 36.5 C 36.5 C Pulse Rate 68 68 Respiratory Rate 14 14 Blood Pressure 144/52 H 144/52 H Pulse Oximetry 95 95 96 Oxygen Delivery Nasal Cannula Oxygen Flow Rate 4 08/11/25 08:16 08/11/25 08:27 08/11/25 08:27 Temperature Pulse Rate 74 74 74 Respiratory Rate 18 18 Blood Pressure Pulse Oximetry Oxygen Delivery Oxygen Flow Rate 08/11/25 08:35 Temperature Pulse Rate Respiratory Rate Blood Pressure Pulse Oximetry 96 Oxygen Delivery Nasal Cannula Oxygen Flow Rate 3.5 Intake/Output Intake/Output: Intake & Output 08/08/25 08/09/25 08/10/25 08/11/25 23:59 23:59 23:59 23:59 Intake Total 1210 1060 2998 480 Output Total 900 650 800 650 Balance 845 062 0898 -170 Meds/Results Medications: Active Medications Generic Name Dose Route Start Last Admin Trade Name Freq PRN Reason Stop Dose Admin Acetaminophen 1,000 mg 08/02/25 04:44 08/06/25 16:11 Acetaminophen 500 Mg Tablet PO 1,000 mg Q6H PRN Administration Pain 1-3 or fever Albuterol/Ipratropium 3 ml 08/07/25 13:14 08/09/25 19:57 Ipratropium 0.5 Mg/Albuterol Sulfate 2.5 Mg (Base) Ampul.Neb 3 Ml INHALATION 3 ml Q4HRT PRN Administration Shortness Of Breath Or Wheezing Albuterol/Ipratropium 3 ml 08/10/25 14:00 08/11/25 08:16 Ipratropium 0.5 Mg/Albuterol Sulfate 2.5 Mg (Base) Ampul.Neb 3 Ml INHALATION 3 ml Q6HRT JUSTIN Administration Amlodipine Besylate 10 mg 08/02/25 09:00 08/11/25 08:26 Amlodipine Besylate 10 Mg Tablet PO 10 mg DAILY JUSTIN Administration Atorvastatin Calcium 80 mg 08/02/25 21:00 08/10/25 20:55 Atorvastatin 40 Mg Tablet PO 80 mg QHS JUSTIN Administration Carvedilol 25 mg 08/02/25 09:00 08/11/25 08:27 Carvedilol 25 Mg Tablet PO 25 mg Q12H JUSTIN Administration Cilostazol 50 mg 08/02/25 07:30 08/11/25 08:46 Cilostazol 50 Mg Tablet PO 50 mg 0730,1630 JUSTIN Administration Finasteride 5 mg 08/02/25 09:00 08/11/25 08:26 Finasteride 5 Mg Tablet PO 5 mg QAM JUSTIN Administration Fluticasone Propionate 1 spray 08/03/25 11:00 08/11/25 08:52 Fluticasone Propionate 0.05% Na Spr 16 Gm Btl (*Bkc) NASAL 1 spray Q12HR JUSTIN Administration Furosemide 40 mg 08/02/25 09:00 08/11/25 08:26 Furosemide 40 Mg Tablet PO 40 mg QAM JUSTIN Administration Gabapentin 300 mg 08/07/25 21:01 08/10/25 20:55 Gabapentin 300 Mg Capsule PO 300 mg BID PRN Administration neuropathy Guaifenesin 600 mg 08/02/25 09:00 08/11/25 08:26 Guaifenesin 12 Hr 600 Mg Tabcr PO 600 mg BID JUSTIN Administration Heparin Sodium (Porcine) 5,000 units 08/02/25 09:00 08/10/25 21:03 Heparin Sodium 5,000 Units/Ml Vial SUB-Q 5,000 units Q12HR JUSTIN Administration Cefepime HCl 1 gm/ Sodium 50 mls @ 100 mls/hr 08/02/25 09:00 08/11/25 08:26 Chloride IVPB 100 mls/hr Q12H JUSTIN Administration Loratadine 10 mg 08/02/25 05:06 Loratadine 10 Mg Tablet PO HS PRN allergy symptoms Losartan Potassium 50 mg 08/02/25 09:00 08/04/25 09:18 Losartan Potassium 50 Mg Tablet PO 50 mg On Hold: 08/04/25 11:27 DAILY JUSTIN Administration Miscellaneous Information 1 each 08/11/25 00:01 Please Renew Tramadol. Per [employer] Procedure, It Will Discontinue If Not Renewed. XX 09/10/25 00:00 CLARIFY JUSTIN Multivitamins/Minerals 1 tab 08/02/25 09:00 08/11/25 08:26 Multivitamins /C Lutein (Centrum Silver) Tablet *Bkc PO 1 tab DAILY JUSTIN Administration Phenol 1 spray 08/03/25 10:49 08/03/25 11:24 Phenol/Sod Pheno [place] Bruno (*Bkc) MUCOUS MEM 1 spray PRN PRN Administration Sore Throat Polyethylene Glycol 17 gm 08/02/25 04:49 08/11/25 08:28 Polyethylene Glycol 3350 17 Gm Powd.Pack PO 17 gm DAILY PRN Administration Constipation Potassium Chloride 10 meq 08/02/25 08:00 08/07/25 08:47 Potassium Chloride 10 Meq Er Tablet PO 10 meq On Hold: 08/07/25 13:13 DAILY@0800 JUSTIN Administration Comment: HOLD DUE TO K LEVEL OF 5 Roflumilast 500 mcg 08/02/25 09:00 08/11/25 08:26 Roflumilast 500 Mcg Tablet PO 500 mcg DAILY JUSTIN Administration Tamsulosin HCl 0.8 mg 08/02/25 21:00 08/10/25 20:55 Tamsulosin Hcl 0.4 Mg Capsule PO 0.8 mg HS JUSTIN Administration Tramadol HCl 50 mg 08/02/25 04:49 08/05/25 17:56 Tramadol Hcl (*Crx) 50 Mg Tablet PO 50 mg Q6H PRN Administration pain 4-10 Umeclidinium/Vilanterol 1 puff 08/02/25 08:00 08/11/25 08:27 Umeclidinium/Vilanterol 62.5-25 Mcg Ellipta INHALATION 1 puff DAILYRT JUSTIN Administration Radiology Results: ITS Impressions Chest/Abdomen/Pelvis CT 08/01/25 18:13 IMPRESSION: 1. Severe emphysematous changes of lungs. Peribronchial thickening of left lung base with mild bronchiectasis as mentioned above. Findings are suggestive of bronchopneumonic changes in the left lower lobe. Stable noncalcified nodules of left lung. Continued follow-up by CT scan at 6 months is recommended. 2. Diffuse abdominal aortic aneurysm measuring 4 cm in diameter at L1-2 and 3.6 cm at L4-5 level. 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 3 severe calcific atherosclerotic disease of the iliac arteries on both sides right worse than the left. The evaluation of pelvis limited by artifacts from bilateral hip arthroplasty. Pelvis Ultrasound 08/04/25 15:55 IMPRESSION: [place] catheter within the bladder Chest X-Ray 08/10/25 12:15 Impression: 1: Developing coarse interstitial infiltrates bilaterally which may reflect mild edema, atypical pneumonia and/or chronic interstitial lung disease. Labs Labs: Laboratory Results - last 24 hr 08/11/25 04:35 WBC 5.4 RBC 2.84 L Hgb 8.2 L Hct 27.1 L MCV 95.4 MCH 28.9 MCHC 30.3 L RDW 14.0 Plt Count 133 L MPV 10.7 H Immature Gran % (Auto) 0.6 H Neut % (Auto) 74.5 H Lymph % (Auto) 12.4 L [place] % (Auto) 8.2 Eos % (Auto) 3.7 Baso % (Auto) 0.6 Lymph # (Auto) 0.67 L [place] # (Auto) 0.4 Eos # (Auto) 0.2 Baso # (Auto) 0.0 Abs Immat Gran (auto) 0.03 Absolute Neuts (auto) 4.0 Absolute Nucleated RBC 0.000 Nucleated RBC % 0.0 % Immature Plt Fraction 3.0 Sodium 135 L Potassium 5.0 Chloride 104 Carbon Dioxide 27 Anion Gap 4 BUN 45 H Creatinine 2.12 H Estim Creat Clear Calc 26 Estimated GFR 31 L Glucose 91 Calcium 8.8 Magnesium 1.9 Total Bilirubin 0.4 AST 24 ALT 16 Alkaline Phosphatase 92 Total Protein 6.2 L Albumin 3.0 L Quality VTE Prophylaxis VTE prophylaxis: pharmacologic ordered (Heparin 5000 units subQ q.12 hours)
[2025-08-11] MEDS: ATORVASTATIN 40 MG TABLET 80 MG PO (21:41)
[2025-08-11] MEDS: TAMSULOSIN HCL 0.4 MG CAPSULE 0.8 MG PO (21:42)
[2025-08-11] MEDS: GABAPENTIN 300 MG CAPSULE PO (21:48)
[2025-08-12] VITALS (13 sets, daily range): BP systolic 127–143; BP diastolic 54–67; PULSE 67–92; RESP 16–20; TEMP 36.1–37.2; O2SAT 93–100
[2025-08-12] MEDS: IPRATROPIUM 0.5 MG/ALBUTEROL SULFATE 2.5 MG (BASE) AMPUL.NEB 3 ML INHALATION ×4 (02:20→21:09)
[2025-08-12] MEDS: guaiFENesin 12 HR 600 MG TABCR PO ×2 (08:27→16:05)
[2025-08-12] MEDS: ROFLUMILAST 500 MCG TABLET PO (08:27)
[2025-08-12] MEDS: FINASTERIDE 5 MG TABLET PO (08:27)
[2025-08-12] MEDS: MULTIVITAMINS /C LUTEIN (CENTRUM SILVER) TABLET *BKC 1 TAB PO (08:31)
[2025-08-12] MEDS: FUROSEMIDE 40 MG TABLET PO (08:32)
[2025-08-12] MEDS: CEFEPIME 1 GM in SODIUM CHLORIDE 0.9% IV 50 ML 100 ML IVPB (08:33)
[2025-08-12] MEDS: FLUTICASONE PROPIONATE 0.05% NA SPR 16 GM BTL (*BKC) 1 SPRAY NASAL ×2 (08:36→20:42)
--- NOTE | 2025-08-12 11:41 | PCNFU ---
Nutrition Follow-Up Complete: Moderate protein calorie malnutrition related to suboptimal nutrition intake in the setting of chronic COPD as evidenced by weight loss 15%/6 months; intakes <75% meals >1 month; moderate muscle wasting and fat loss Goal: Intakes >75% Patient is meeting goal. No new goal. Pt current nutrition is Heart Healthy with diet supplements. Last recorded weight is 65.3 kg, no new weight to report. Bowel Motility: Last reported BM 08/11 Labs Reviewed: No labs to report. Meds Noted: MVI, Lipitor. Skin: WNL Additional Notes: Patient remains on a heart healthy diet. Oral Intake has been > 75% of meals. Diet supplements of Ensure Plus High Protein providing an additional 350 kcal and 20 gm protein. Agree with diet orders. Monitoring intakes,w eights, labs, supplement tolerance, plan of care Follow up in 7 days
--- NOTE | 2025-08-12 12:17 | P.PNIM_ITS ---
Assessment and Plan Assessment and Plan (1) Urinary tract infection due to Pseudomonas aeruginosa: Code(s): N39.0 - Urinary tract infection, site not specified; B96.5 - Pseudomonas (aeruginosa) (mallei) (pseudomallei) as the cause of diseases classified elsewhere Status: Acute Assessment and Plan: Recent urine culture as outpatient showing Pseudomonas resistant to all oral antibiotics Patient currently on IV cefepime ID on board (2) Urinary retention with incomplete bladder emptying: Code(s): R33.9 - Retention of urine, unspecified Status: Acute Assessment and Plan: BPH and history of urinary retention Currently on Flomax and Proscar Bladder training Currently on [place] (3) Bronchiectasis: Qualifiers: Bronchiectasis type: uncomplicated Qualified Code(s): J47.9 - Bronchiectasis, uncomplicated Code(s): J47.9 - Bronchiectasis, uncomplicated Status: Acute (4) Chronic respiratory failure with hypoxia, on home oxygen therapy: Code(s): J96.11 - Chronic respiratory failure with hypoxia; Z99.81 - Dependence on supplemental oxygen Status: Acute Assessment and Plan: COPD with chronic hypoxic respiratory failure Bronchiectasis Small area bronchopneumonia left lower lobe. doxycycline for atypical coverage. Continue on DuoNeb scheduled. Sputum culture with Pseudomonas aeruginosa. Will continue with cefepime History of Mycobacterium avium complex (5) Chronic kidney disease, stage IV (severe): Code(s): N18.4 - Chronic kidney disease, stage 4 (severe) Status: Chronic Assessment and Plan: Chest x-ray with congestive changes. Will resume Lasix Plan This is a 74-year-old male who presented with increased shortness of breath and urinary symptoms. He has been having urinary symptoms for couple of weeks as well as diarrhea for the last month. Reports subjective fever chills fatigue anxiety and abdominal pain. No chest pain. Has history of COPD with 4 L oxygen at baseline. History of DVT/PE on Eliquis. On ED evaluation his vitals were stable. Laboratory workup revealed WBC of 7.3 hemoglobin 10.4 platelet of 216. Chem panel showed sodium 140 potassium 4.5 chloride 100 bicarbonate 35 BUN 37 creatinine 2.5 blood glucose of 113. LFTs were normal. Urinalysis with more than 100 urine WBC. EKG showed with with nonspecific ST-T changes. Chest x-ray with no acute pulmonary findings. Severe emphysema of lungs with chronic pleural thickening of the left costophrenic angle. Severe atherosclerotic aorta noted. CT also demonstrates severe emphysematous changes of the lungs and findings suggestive of bronchopneumonia changes of the left lower lobe. Stable noncalcified nodules of the left lung. 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 Will continue the IV antibiotic for Pseudomonas. History of Mycobacterium avium complex DVT prophylaxis heparin subQ Code status full code Subjective Date/time seen: 08/12/25 12:17 Interval history: 08/08:Patient is currently treated UTI and urinary retention. Patient is currently on cefepime. Patient reports he needs to undergo surgery for urethral stricture as OP. 08/09: Patient complains of congestion. Patient will complete cefepime tomorrow due to UTI. If needed can continue cefepime. Chest x-ray tomorrow a.m. 08/10: Respiratory mcdaniel he is doing a little worse. Reports some congestion and increased cough. Denies any other complaints. 08/11: Patient was seen during the morning rounds today. Patient is feeling slightly better. Decreased shortness of breath. No chest pain. 08/12: Patient was seen during rounds today. No new overnight complaints. Decreased shortness of breath. No chest pain. Review of Systems Review of Systems: 12 systems were reviewed with pertinent positives and negatives per HPI. Except as documented in the HPI, all other systems were reviewed and are negative. All systems reviewed & are unremarkable except as noted in HPI and below Exam Narrative: GENERAL: The patient is well developed, not in acute distress HEENT: Nonicteric sclerae, PERRLA, EOMI. Oropharynx clear. Moist mucous membranes. Conjunctivae appear well perfused. CHEST: Chest wall is nontender. HEART: Regular rate and rhythm without murmur, rubs, or gallops LUNGS: Bilateral basal crackles, no respiratory distress ABDOMEN: Soft, positive bowel sounds, non-tender, no organomegaly. SKIN: No rash, no excessive bruising, petechiae, or purpura. NEUROLOGIC: Cranial nerves II-XII intact, alert and oriented x 3, no gross motor deficits EXTREMITIES: no edema, cyanosis or clubbing Const: Other: Thin body habitus, no acute distress, appears stated age HENMT: Other: Mucous membranes are moist, no oral pharyngeal erythema, head is normocephalic atraumatic, nasal cannula in place Eyes: Other: Pupils are equal and reactive, no scleral icterus Neck: Other: No JVD, no lymphadenopathy Resp: Other: Coarse crackles at the a left lower lung base, no increased work of breathing GI: Other: Regular rate, regular rhythm, 2+ bilateral radial and pedal pulses : Other: Suprapubic fullness and discomfort with palpation, postvoid residual greater than 400 Skin: Other: No jaundice, positive pallor Neuro: Other: Alert oriented x4, speech is clear, no facial asymmetry, no localizing neurologic deficits noted during the course of conversation patient is able to stand unassisted Extrem: Other: No cyanosis, no edema, 5/5 patient access representative strength bilaterally, patient is able to stand unassisted Psych: Other: Appropriate mood and affect, pleasant and cooperative, judgment and insight intact Objective Data Vital Signs Vital Signs: Vital Signs - 24 hr 08/11/25 14:00 08/11/25 15:13 08/11/25 15:28 Temperature 36.2 C L Pulse Rate 83 79 63 Respiratory Rate 18 18 18 Blood Pressure 128/58 L Pulse Oximetry 97 Oxygen Delivery Oxygen Flow Rate Fraction of Inspired Oxygen 08/11/25 20:00 08/11/25 20:43 08/11/25 20:44 Temperature Pulse Rate 88 88 88 Respiratory Rate 20 20 20 Blood Pressure Pulse Oximetry 100 96 Oxygen Delivery Nasal Cannula Nasal Cannula Oxygen Flow Rate 4 4 Fraction of Inspired Oxygen 36 36 08/11/25 20:55 08/11/25 21:00 08/11/25 21:41 Temperature 36.5 C Pulse Rate 83 80 88 Respiratory Rate 14 20 Blood Pressure 133/65 Pulse Oximetry 100 Oxygen Delivery Oxygen Flow Rate Fraction of Inspired Oxygen 08/12/25 02:21 08/12/25 02:30 08/12/25 06:51 Temperature 37.2 C Pulse Rate 69 70 73 Respiratory Rate 20 20 16 Blood Pressure 140/55 L Pulse Oximetry 96 Oxygen Delivery Oxygen Flow Rate Fraction of Inspired Oxygen 08/12/25 08:00 08/12/25 08:27 08/12/25 09:16 Temperature Pulse Rate 77 75 Respiratory Rate 20 Blood Pressure Pulse Oximetry 100 93 Oxygen Delivery Nasal Cannula Nasal Cannula Oxygen Flow Rate 3 4 Fraction of Inspired Oxygen 36 08/12/25 09:16 08/12/25 09:27 Temperature Pulse Rate 75 76 Respiratory Rate 20 20 Blood Pressure Pulse Oximetry Oxygen Delivery Oxygen Flow Rate Fraction of Inspired Oxygen Intake/Output Intake/Output: Intake & Output 08/09/25 08/10/25 08/11/25 08/12/25 23:59 23:59 23:59 23:59 Intake Total 1060 2998 830 740 Output Total 386 438 6597 1700 Balance 410 7724 -260 -044 Meds/Results Medications: Active Medications Generic Name Dose Route Start Last Admin Trade Name Freq PRN Reason Stop Dose Admin Acetaminophen 1,000 mg 08/02/25 04:44 08/06/25 16:11 Acetaminophen 500 Mg Tablet PO 1,000 mg Q6H PRN Administration Pain 1-3 or fever Albuterol/Ipratropium 3 ml 08/07/25 13:14 08/09/25 19:57 Ipratropium 0.5 Mg/Albuterol Sulfate 2.5 Mg (Base) Ampul.Neb 3 Ml INHALATION 3 ml Q4HRT PRN Administration Shortness Of Breath Or Wheezing Albuterol/Ipratropium 3 ml 08/10/25 14:00 08/12/25 09:16 Ipratropium 0.5 Mg/Albuterol Sulfate 2.5 Mg (Base) Ampul.Neb 3 Ml INHALATION 3 ml Q6HRT JUSTIN Administration Amlodipine Besylate 10 mg 08/02/25 09:00 08/12/25 08:27 Amlodipine Besylate 10 Mg Tablet PO 10 mg DAILY JUSTIN Administration Atorvastatin Calcium 80 mg 08/02/25 21:00 08/11/25 21:41 Atorvastatin 40 Mg Tablet PO 80 mg QHS JUSTIN Administration Carvedilol 25 mg 08/02/25 09:00 08/12/25 08:27 Carvedilol 25 Mg Tablet PO 25 mg Q12H JUSTIN Administration Cilostazol 50 mg 08/02/25 07:30 08/12/25 08:40 Cilostazol 50 Mg Tablet PO 50 mg 0730,1630 JUSTIN Administration Finasteride 5 mg 08/02/25 09:00 08/12/25 08:27 Finasteride 5 Mg Tablet PO 5 mg QAM JUSTIN Administration Fluticasone Propionate 1 spray 08/03/25 11:00 08/12/25 08:36 Fluticasone Propionate 0.05% Na Spr 16 Gm Btl (*Bkc) NASAL 1 spray Q12HR JUSTIN Administration Furosemide 40 mg 08/02/25 09:00 08/12/25 08:32 Furosemide 40 Mg Tablet PO 40 mg QAM JUSTIN Administration Gabapentin 300 mg 08/07/25 21:01 08/11/25 21:48 Gabapentin 300 Mg Capsule PO 300 mg BID PRN Administration neuropathy Guaifenesin 600 mg 08/02/25 09:00 08/12/25 08:27 Guaifenesin 12 Hr 600 Mg Tabcr PO 600 mg BID JUSTIN Administration Heparin Sodium (Porcine) 5,000 units 08/02/25 09:00 08/12/25 08:31 Heparin Sodium 5,000 Units/Ml Vial SUB-Q 5,000 units Q12HR JUSTIN Administration Cefepime HCl 1 gm/ Sodium 50 mls @ 100 mls/hr 08/02/25 09:00 08/12/25 08:33 Chloride IVPB 100 mls/hr Q12H JUSTIN Administration Loratadine 10 mg 08/02/25 05:06 Loratadine 10 Mg Tablet PO HS PRN allergy symptoms Losartan Potassium 50 mg 08/02/25 09:00 08/04/25 09:18 Losartan Potassium 50 Mg Tablet PO 50 mg On Hold: 08/04/25 11:27 DAILY JUSTIN Administration Miscellaneous Information 1 each 08/11/25 00:01 Please Renew Tramadol. Per [employer] Procedure, It Will Discontinue If Not Renewed. XX 09/10/25 00:00 CLARIFY JUSTIN Multivitamins/Minerals 1 tab 08/02/25 09:00 08/12/25 08:31 Multivitamins /C Lutein (Centrum Silver) Tablet *Bkc PO 1 tab DAILY JUSTIN Administration Phenol 1 spray 08/03/25 10:49 08/03/25 11:24 Phenol/Sod Pheno [place] Bruno (*Bkc) MUCOUS MEM 1 spray PRN PRN Administration Sore Throat Polyethylene Glycol 17 gm 08/02/25 04:49 08/11/25 08:28 Polyethylene Glycol 3350 17 Gm Powd.Pack PO 17 gm DAILY PRN Administration Constipation Potassium Chloride 10 meq 08/02/25 08:00 08/07/25 08:47 Potassium Chloride 10 Meq Er Tablet PO 10 meq On Hold: 08/07/25 13:13 DAILY@0800 JUSTIN Administration Comment: HOLD DUE TO K LEVEL OF 5 Roflumilast 500 mcg 08/02/25 09:00 08/12/25 08:27 Roflumilast 500 Mcg Tablet PO 500 mcg DAILY JUSTIN Administration Tamsulosin HCl 0.8 mg 08/02/25 21:00 08/11/25 21:42 Tamsulosin Hcl 0.4 Mg Capsule PO 0.8 mg HS JUSTIN Administration Umeclidinium/Vilanterol 1 puff 08/02/25 08:00 08/11/25 08:27 Umeclidinium/Vilanterol 62.5-25 Mcg Ellipta INHALATION 1 puff DAILYRT JUSTIN Administration Radiology Results: ITS Impressions Chest/Abdomen/Pelvis CT 08/01/25 18:13 IMPRESSION: 1. Severe emphysematous changes of lungs. Peribronchial thickening of left lung base with mild bronchiectasis as mentioned above. Findings are suggestive of bronchopneumonic changes in the left lower lobe. Stable noncalcified nodules of left lung. Continued follow-up by CT scan at 6 months is recommended. 2. Diffuse abdominal aortic aneurysm measuring 4 cm in diameter at L1-2 and 3.6 cm at L4-5 level. 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 3 severe calcific atherosclerotic disease of the iliac arteries on both sides right worse than the left. The evaluation of pelvis limited by artifacts from bilateral hip arthroplasty. Pelvis Ultrasound 08/04/25 15:55 IMPRESSION: [place] catheter within the bladder Quality VTE Prophylaxis VTE prophylaxis: pharmacologic ordered (Heparin 5000 units subQ q.12 hours)
--- NOTE | 2025-08-12 14:23 | P.PNINF_ITS ---
Progress Note: A&P Assessment and Plan (1) Urinary tract infection due to Pseudomonas aeruginosa: Code(s): N39.0 - Urinary tract infection, site not specified; B96.5 - Pseudomonas (aeruginosa) (mallei) (pseudomallei) as the cause of diseases classified elsewhere Status: Acute Plan ASSESSMENT: 1. PSAR UTI is setting of BPH and penile stricture--continue cefepime 2. chronic respiratory failure on 4L o2 NC at baseline 3. COPD, bronchiectasis, pulmonary MAC--no treatment-->watchful waiting 4. possible pneumonia; MRSA nares neg 5. CKD 6. PE/DVT RECOMMENDATIONS: -OK to stop abx. Discharge timing per service. No barrier to discharge from ID standpoint; CXR reviewed. d/w pharmacy Pt was seen via video telehealth consultation with the assistance of staff. Chart, data and patient info reviewed. Patient was located at [facility] while I was in my [place] office. Pt gave consent. Subjective Date/time seen: 08/12/25 14:23 Interval history: no fever. mild congestion. Exam Narrative: NAD, non-toxic on 4.5L O2 NC abd soft NT left flank tender Objective Data Vital Signs Vital Signs: Vital Signs - 24 hr 08/11/25 15:13 08/11/25 15:28 08/11/25 20:00 Temperature Pulse Rate 79 63 88 Respiratory Rate 18 18 20 Blood Pressure Pulse Oximetry 100 Oxygen Delivery Nasal Cannula Oxygen Flow Rate 4 Fraction of Inspired Oxygen 36 08/11/25 20:43 08/11/25 20:44 08/11/25 20:55 Temperature 36.5 C Pulse Rate 88 88 83 Respiratory Rate 20 20 14 Blood Pressure 133/65 Pulse Oximetry 96 100 Oxygen Delivery Nasal Cannula Oxygen Flow Rate 4 Fraction of Inspired Oxygen 36 08/11/25 21:00 08/11/25 21:41 08/12/25 02:21 Temperature Pulse Rate 80 88 69 Respiratory Rate 20 20 Blood Pressure Pulse Oximetry Oxygen Delivery Oxygen Flow Rate Fraction of Inspired Oxygen 08/12/25 02:30 08/12/25 06:51 08/12/25 08:00 Temperature 37.2 C Pulse Rate 70 73 Respiratory Rate 20 16 Blood Pressure 140/55 L Pulse Oximetry 96 100 Oxygen Delivery Nasal Cannula Oxygen Flow Rate 3 Fraction of Inspired Oxygen 36 08/12/25 08:27 08/12/25 09:16 08/12/25 09:16 Temperature Pulse Rate 77 75 75 Respiratory Rate 20 20 Blood Pressure Pulse Oximetry 93 Oxygen Delivery Nasal Cannula Oxygen Flow Rate 4 Fraction of Inspired Oxygen 08/12/25 09:27 08/12/25 14:00 Temperature 36.1 C L Pulse Rate 76 67 Respiratory Rate 20 20 Blood Pressure 127/54 L Pulse Oximetry 98 Oxygen Delivery Oxygen Flow Rate Fraction of Inspired Oxygen Intake/Output Intake/Output: Intake & Output 08/09/25 08/10/25 08/11/25 08/12/25 23:59 23:59 23:59 23:59 Intake Total 1060 2998 830 740 Output Total 167 638 5221 1700 Balance 410 3746 -466 -619 Meds/Results Medications: Active Medications Generic Name Dose Route Start Last Admin Trade Name Freq PRN Reason Stop Dose Admin Acetaminophen 1,000 mg 08/02/25 04:44 08/06/25 16:11 Acetaminophen 500 Mg Tablet PO 1,000 mg Q6H PRN Administration Pain 1-3 or fever Albuterol/Ipratropium 3 ml 08/07/25 13:14 08/09/25 19:57 Ipratropium 0.5 Mg/Albuterol Sulfate 2.5 Mg (Base) Ampul.Neb 3 Ml INHALATION 3 ml Q4HRT PRN Administration Shortness Of Breath Or Wheezing Albuterol/Ipratropium 3 ml 08/10/25 14:00 08/12/25 09:16 Ipratropium 0.5 Mg/Albuterol Sulfate 2.5 Mg (Base) Ampul.Neb 3 Ml INHALATION 3 ml Q6HRT JUSTIN Administration Amlodipine Besylate 10 mg 08/02/25 09:00 08/12/25 08:27 Amlodipine Besylate 10 Mg Tablet PO 10 mg DAILY JUSTIN Administration Atorvastatin Calcium 80 mg 08/02/25 21:00 08/11/25 21:41 Atorvastatin 40 Mg Tablet PO 80 mg QHS JUSTIN Administration Carvedilol 25 mg 08/02/25 09:00 08/12/25 08:27 Carvedilol 25 Mg Tablet PO 25 mg Q12H JUSTIN Administration Cilostazol 50 mg 08/02/25 07:30 08/12/25 08:40 Cilostazol 50 Mg Tablet PO 50 mg 0730,1630 JUSTIN Administration Finasteride 5 mg 08/02/25 09:00 08/12/25 08:27 Finasteride 5 Mg Tablet PO 5 mg QAM JUSTIN Administration Fluticasone Propionate 1 spray 08/03/25 11:00 08/12/25 08:36 Fluticasone Propionate 0.05% Na Spr 16 Gm Btl (*Bkc) NASAL 1 spray Q12HR JUSTIN Administration Furosemide 40 mg 08/02/25 09:00 08/12/25 08:32 Furosemide 40 Mg Tablet PO 40 mg QAM JUSTIN Administration Gabapentin 300 mg 08/07/25 21:01 08/11/25 21:48 Gabapentin 300 Mg Capsule PO 300 mg BID PRN Administration neuropathy Guaifenesin 600 mg 08/02/25 09:00 08/12/25 08:27 Guaifenesin 12 Hr 600 Mg Tabcr PO 600 mg BID JUSTIN Administration Heparin Sodium (Porcine) 5,000 units 08/02/25 09:00 08/12/25 08:31 Heparin Sodium 5,000 Units/Ml Vial SUB-Q 5,000 units Q12HR JUSTIN Administration Loratadine 10 mg 08/02/25 05:06 Loratadine 10 Mg Tablet PO HS PRN allergy symptoms Losartan Potassium 50 mg 08/02/25 09:00 08/04/25 09:18 Losartan Potassium 50 Mg Tablet PO 50 mg On Hold: 08/04/25 11:27 DAILY JUSTIN Administration Miscellaneous Information 1 each 08/11/25 00:01 Please Renew Tramadol. Per [employer] Procedure, It Will Discontinue If Not Renewed. XX 09/10/25 00:00 CLARIFY JUSTIN Multivitamins/Minerals 1 tab 08/02/25 09:00 08/12/25 08:31 Multivitamins /C Lutein (Centrum Silver) Tablet *Bkc PO 1 tab DAILY JUSTIN Administration Phenol 1 spray 08/03/25 10:49 08/03/25 11:24 Phenol/Sod Pheno [place] Bruno (*Bkc) MUCOUS MEM 1 spray PRN PRN Administration Sore Throat Polyethylene Glycol 17 gm 08/02/25 04:49 08/11/25 08:28 Polyethylene Glycol 3350 17 Gm Powd.Pack PO 17 gm DAILY PRN Administration Constipation Potassium Chloride 10 meq 08/02/25 08:00 08/07/25 08:47 Potassium Chloride 10 Meq Er Tablet PO 10 meq On Hold: 08/07/25 13:13 DAILY@0800 JUSTIN Administration Comment: HOLD DUE TO K LEVEL OF 5 Roflumilast 500 mcg 08/02/25 09:00 08/12/25 08:27 Roflumilast 500 Mcg Tablet PO 500 mcg DAILY JUSTIN Administration Tamsulosin HCl 0.8 mg 08/02/25 21:00 08/11/25 21:42 Tamsulosin Hcl 0.4 Mg Capsule PO 0.8 mg HS JUSTIN Administration Umeclidinium/Vilanterol 1 puff 08/02/25 08:00 08/11/25 08:27 Umeclidinium/Vilanterol 62.5-25 Mcg Ellipta INHALATION 1 puff DAILYRT JUSTIN Administration Radiology Results: ITS Impressions Chest/Abdomen/Pelvis CT 08/01/25 18:13 IMPRESSION: 1. Severe emphysematous changes of lungs. Peribronchial thickening of left lung base with mild bronchiectasis as mentioned above. Findings are suggestive of bronchopneumonic changes in the left lower lobe. Stable noncalcified nodules of left lung. Continued follow-up by CT scan at 6 months is recommended. 2. Diffuse abdominal aortic aneurysm measuring 4 cm in diameter at L1-2 and 3.6 cm at L4-5 level. 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 3 severe calcific atherosclerotic disease of the iliac arteries on both sides right worse than the left. The evaluation of pelvis limited by artifacts from bilateral hip arthroplasty. Pelvis Ultrasound 08/04/25 15:55 IMPRESSION: [place] catheter within the bladder Chest X-Ray 08/12/25 12:51 Impression: 1: No acute cardiopulmonary disease. 2: Chronic interstitial lung disease with chronic small left pleural effusion/pleural thickening.
[2025-08-12] MEDS: TAMSULOSIN HCL 0.4 MG CAPSULE 0.8 MG PO (20:41)
[2025-08-12] MEDS: ATORVASTATIN 40 MG TABLET 80 MG PO (20:41)
[2025-08-12] MEDS: ACETAMINOPHEN 500 MG TABLET 1000 MG PO (20:44)
[2025-08-12] MEDS: GABAPENTIN 300 MG CAPSULE PO (20:44)
[2025-08-13] VITALS (15 sets, daily range): BP systolic 135–151; BP diastolic 53–60; PULSE 64–97; RESP 16–20; TEMP 36.4–36.8; O2SAT 90–99
[2025-08-13] MEDS: IPRATROPIUM 0.5 MG/ALBUTEROL SULFATE 2.5 MG (BASE) AMPUL.NEB 3 ML INHALATION ×4 (01:44→21:48)
[2025-08-13] MEDS: UMECLIDINIUM/VILANTEROL 62.5-25 MCG ELLIPTA 1 PUFF INHALATION (07:58)
[2025-08-13] MEDS: guaiFENesin 12 HR 600 MG TABCR PO ×2 (08:13→16:35)
[2025-08-13] MEDS: FINASTERIDE 5 MG TABLET PO (08:13)
[2025-08-13] MEDS: ROFLUMILAST 500 MCG TABLET PO (08:13)
[2025-08-13] MEDS: FUROSEMIDE 40 MG TABLET PO (08:14)
[2025-08-13] MEDS: MULTIVITAMINS /C LUTEIN (CENTRUM SILVER) TABLET *BKC 1 TAB PO (08:14)
--- NOTE | 2025-08-13 10:14 | P.PNIM_ITS ---
Assessment and Plan Assessment and Plan (1) Urinary tract infection due to Pseudomonas aeruginosa: Code(s): N39.0 - Urinary tract infection, site not specified; B96.5 - Pseudomonas (aeruginosa) (mallei) (pseudomallei) as the cause of diseases classified elsewhere Status: Acute Assessment and Plan: Recent urine culture as outpatient showing Pseudomonas resistant to all oral antibiotics Patient currently on IV cefepime ID on board (2) Urinary retention with incomplete bladder emptying: Code(s): R33.9 - Retention of urine, unspecified Status: Acute Assessment and Plan: BPH and history of urinary retention Currently on Flomax and Proscar Bladder training Currently on [place] (3) Bronchiectasis: Qualifiers: Bronchiectasis type: uncomplicated Qualified Code(s): J47.9 - Bronchiectasis, uncomplicated Code(s): J47.9 - Bronchiectasis, uncomplicated Status: Acute (4) Chronic respiratory failure with hypoxia, on home oxygen therapy: Code(s): J96.11 - Chronic respiratory failure with hypoxia; Z99.81 - Dependence on supplemental oxygen Status: Acute Assessment and Plan: COPD with chronic hypoxic respiratory failure Bronchiectasis Small area bronchopneumonia left lower lobe. doxycycline for atypical coverage. Continue on DuoNeb scheduled. Sputum culture with Pseudomonas aeruginosa. Will continue with cefepime History of Mycobacterium avium complex (5) Chronic kidney disease, stage IV (severe): Code(s): N18.4 - Chronic kidney disease, stage 4 (severe) Status: Chronic Assessment and Plan: Chest x-ray with congestive changes. Will resume Lasix Plan This is a 74-year-old male who presented with increased shortness of breath and urinary symptoms. He has been having urinary symptoms for couple of weeks as well as diarrhea for the last month. Reports subjective fever chills fatigue anxiety and abdominal pain. No chest pain. Has history of COPD with 4 L oxygen at baseline. History of DVT/PE on Eliquis. On ED evaluation his vitals were stable. Laboratory workup revealed WBC of 7.3 hemoglobin 10.4 platelet of 216. Chem panel showed sodium 140 potassium 4.5 chloride 100 bicarbonate 35 BUN 37 creatinine 2.5 blood glucose of 113. LFTs were normal. Urinalysis with more than 100 urine WBC. EKG showed with with nonspecific ST-T changes. Chest x-ray with no acute pulmonary findings. Severe emphysema of lungs with chronic pleural thickening of the left costophrenic angle. Severe atherosclerotic aorta noted. CT also demonstrates severe emphysematous changes of the lungs and findings suggestive of bronchopneumonia changes of the left lower lobe. Stable noncalcified nodules of the left lung. 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 Will continue the IV antibiotic for Pseudomonas. History of Mycobacterium avium complex DVT prophylaxis heparin subQ Code status full code Subjective Date/time seen: 08/13/25 10:14 Interval history: Patient was seen during morning rounds today. Patient is doing better. No shortness of breath or chest pain. Review of Systems Review of Systems: 12 systems were reviewed with pertinent positives and negatives per HPI. Except as documented in the HPI, all other systems were reviewed and are negative. All systems reviewed & are unremarkable except as noted in HPI and below Exam Narrative: GENERAL: The patient is well developed, not in acute distress HEENT: Nonicteric sclerae, PERRLA, EOMI. Oropharynx clear. Moist mucous membranes. Conjunctivae appear well perfused. CHEST: Chest wall is nontender. HEART: Regular rate and rhythm without murmur, rubs, or gallops LUNGS: Bilateral basal crackles, no respiratory distress ABDOMEN: Soft, positive bowel sounds, non-tender, no organomegaly. SKIN: No rash, no excessive bruising, petechiae, or purpura. NEUROLOGIC: Cranial nerves II-XII intact, alert and oriented x 3, no gross motor deficits EXTREMITIES: no edema, cyanosis or clubbing Const: Other: Thin body habitus, no acute distress, appears stated age HENMT: Other: Mucous membranes are moist, no oral pharyngeal erythema, head is normocephalic atraumatic, nasal cannula in place Eyes: Other: Pupils are equal and reactive, no scleral icterus Neck: Other: No JVD, no lymphadenopathy Resp: Other: Coarse crackles at the a left lower lung base, no increased work of breathing GI: Other: Regular rate, regular rhythm, 2+ bilateral radial and pedal pulses : Other: Suprapubic fullness and discomfort with palpation, postvoid residual greater than 400 Skin: Other: No jaundice, positive pallor Neuro: Other: Alert oriented x4, speech is clear, no facial asymmetry, no localizing neurologic deficits noted during the course of conversation patient is able to stand unassisted Extrem: Other: No cyanosis, no edema, 5/5 aeronautical design engineer strength bilaterally, patient is able to stand unassisted Psych: Other: Appropriate mood and affect, pleasant and cooperative, judgment and insight intact Objective Data Vital Signs Vital Signs: Vital Signs - 24 hr 08/12/25 14:00 08/12/25 15:00 08/12/25 20:09 Temperature 36.1 C L 36.5 C Pulse Rate 67 78 92 Respiratory Rate 20 18 18 Blood Pressure 127/54 L 143/67 H Pulse Oximetry 98 96 Oxygen Delivery Oxygen Flow Rate Fraction of Inspired Oxygen 08/12/25 21:09 08/12/25 21:10 08/12/25 21:24 Temperature Pulse Rate 79 79 80 Respiratory Rate 20 20 20 Blood Pressure Pulse Oximetry 97 Oxygen Delivery Nasal Cannula Oxygen Flow Rate 4 Fraction of Inspired Oxygen 36 08/13/25 01:44 08/13/25 01:53 08/13/25 04:04 Temperature 36.4 C Pulse Rate 81 82 97 Respiratory Rate 20 20 20 Blood Pressure 135/60 Pulse Oximetry 95 Oxygen Delivery Oxygen Flow Rate Fraction of Inspired Oxygen 08/13/25 08:00 08/13/25 08:00 08/13/25 08:07 Temperature Pulse Rate 80 84 Respiratory Rate 20 20 Blood Pressure Pulse Oximetry 90 Oxygen Delivery Nasal Cannula Oxygen Flow Rate 4 Fraction of Inspired Oxygen 08/13/25 08:14 Temperature Pulse Rate 85 Respiratory Rate Blood Pressure Pulse Oximetry Oxygen Delivery Oxygen Flow Rate Fraction of Inspired Oxygen Intake/Output Intake/Output: Intake & Output 08/10/25 08/11/25 08/12/25 08/13/25 23:59 23:59 23:59 23:59 Intake Total 2998 830 1590 390 Output Total 800 1050 1700 Balance 2198 -220 -110 390 Meds/Results Medications: Active Medications Generic Name Dose Route Start Last Admin Trade Name Freq PRN Reason Stop Dose Admin Acetaminophen 1,000 mg 08/02/25 04:44 08/12/25 20:44 Acetaminophen 500 Mg Tablet PO 1,000 mg Q6H PRN Administration Pain 1-3 or fever Albuterol/Ipratropium 3 ml 08/07/25 13:14 08/09/25 19:57 Ipratropium 0.5 Mg/Albuterol Sulfate 2.5 Mg (Base) Ampul.Neb 3 Ml INHALATION 3 ml Q4HRT PRN Administration Shortness Of Breath Or Wheezing Albuterol/Ipratropium 3 ml 08/10/25 14:00 08/13/25 07:57 Ipratropium 0.5 Mg/Albuterol Sulfate 2.5 Mg (Base) Ampul.Neb 3 Ml INHALATION 3 ml Q6HRT JUSTIN Administration Amlodipine Besylate 10 mg 08/02/25 09:00 08/13/25 08:13 Amlodipine Besylate 10 Mg Tablet PO 10 mg DAILY JUSTIN Administration Atorvastatin Calcium 80 mg 08/02/25 21:00 08/12/25 20:41 Atorvastatin 40 Mg Tablet PO 80 mg QHS JUSTIN Administration Carvedilol 25 mg 08/02/25 09:00 08/13/25 08:14 Carvedilol 25 Mg Tablet PO 25 mg Q12H JUSTIN Administration Cilostazol 50 mg 08/02/25 07:30 08/13/25 07:24 Cilostazol 50 Mg Tablet PO 50 mg 0730,1630 JUSTIN Administration Finasteride 5 mg 08/02/25 09:00 08/13/25 08:13 Finasteride 5 Mg Tablet PO 5 mg QAM JUSTIN Administration Fluticasone Propionate 1 spray 08/03/25 11:00 08/12/25 20:42 Fluticasone Propionate 0.05% Na Spr 16 Gm Btl (*Bkc) NASAL 1 spray Q12HR JUSTIN Administration Furosemide 40 mg 08/02/25 09:00 08/13/25 08:14 Furosemide 40 Mg Tablet PO 40 mg QAM JUSTIN Administration Gabapentin 300 mg 08/07/25 21:01 08/12/25 20:44 Gabapentin 300 Mg Capsule PO 300 mg BID PRN Administration neuropathy Guaifenesin 600 mg 08/02/25 09:00 08/13/25 08:13 Guaifenesin 12 Hr 600 Mg Tabcr PO 600 mg BID JUSTIN Administration Heparin Sodium (Porcine) 5,000 units 08/02/25 09:00 08/13/25 08:13 Heparin Sodium 5,000 Units/Ml Vial SUB-Q 5,000 units Q12HR JUSTIN Administration Loratadine 10 mg 08/02/25 05:06 Loratadine 10 Mg Tablet PO HS PRN allergy symptoms Losartan Potassium 50 mg 08/02/25 09:00 08/04/25 09:18 Losartan Potassium 50 Mg Tablet PO 50 mg On Hold: 08/04/25 11:27 DAILY JUSTIN Administration Miscellaneous Information 1 each 08/11/25 00:01 Please Renew Tramadol. Per [employer] Procedure, It Will Discontinue If Not Renewed. XX 09/10/25 00:00 [facility] Multivitamins/Minerals 1 tab 08/02/25 09:00 08/13/25 08:14 Multivitamins /C Lutein (Centrum Silver) Tablet *Bkc PO 1 tab DAILY JUSTIN Administration Phenol 1 spray 08/03/25 10:49 08/03/25 11:24 Phenol/Sod Pheno [place] (*Bkc) MUCOUS MEM 1 spray PRN PRN Administration Sore Throat Polyethylene Glycol 17 gm 08/02/25 04:49 08/12/25 18:01 Polyethylene Glycol 3350 17 Gm Powd.Pack PO 17 gm DAILY PRN Administration Constipation Potassium Chloride 10 meq 08/02/25 08:00 08/07/25 08:47 Potassium Chloride 10 Meq Er Tablet PO 10 meq On Hold: 08/07/25 13:13 DAILY@0800 JUSTIN Administration Comment: HOLD DUE TO K LEVEL OF 5 Roflumilast 500 mcg 08/02/25 09:00 08/13/25 08:13 Roflumilast 500 Mcg Tablet PO 500 mcg DAILY JUSTIN Administration Tamsulosin HCl 0.8 mg 08/02/25 21:00 08/12/25 20:41 Tamsulosin Hcl 0.4 Mg Capsule PO 0.8 mg HS JUSTIN Administration Umeclidinium/Vilanterol 1 puff 08/02/25 08:00 08/13/25 07:58 Umeclidinium/Vilanterol 62.5-25 Mcg Ellipta INHALATION 1 puff DAILYRT JUSTIN Administration Radiology Results: ITS Impressions Chest/Abdomen/Pelvis CT 08/01/25 18:13 IMPRESSION: 1. Severe emphysematous changes of lungs. Peribronchial thickening of left lung base with mild bronchiectasis as mentioned above. Findings are suggestive of bronchopneumonic changes in the left lower lobe. Stable noncalcified nodules of left lung. Continued follow-up by CT scan at 6 months is recommended. 2. Diffuse abdominal aortic aneurysm measuring 4 cm in diameter at L1-2 and 3.6 cm at L4-5 level. 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 3 severe calcific atherosclerotic disease of the iliac arteries on both sides right worse than the left. The evaluation of pelvis limited by artifacts from bilateral hip arthroplasty. Pelvis Ultrasound 08/04/25 15:55 IMPRESSION: [place] catheter within the bladder Chest X-Ray 08/12/25 12:51 Impression: 1: No acute cardiopulmonary disease. 2: Chronic interstitial lung disease with chronic small left pleural effusion/pleural thickening. Quality VTE Prophylaxis VTE prophylaxis: pharmacologic ordered (Heparin 5000 units subQ q.12 hours)
[2025-08-13] MEDS: ATORVASTATIN 40 MG TABLET 80 MG PO (20:04)
[2025-08-13] MEDS: ACETAMINOPHEN 500 MG TABLET 1000 MG PO (20:05)
[2025-08-13] MEDS: TAMSULOSIN HCL 0.4 MG CAPSULE 0.8 MG PO (20:09)
[2025-08-13] MEDS: GABAPENTIN 300 MG CAPSULE PO (20:09)
[2025-08-13] MEDS: FLUTICASONE PROPIONATE 0.05% NA SPR 16 GM BTL (*BKC) 1 SPRAY NASAL (20:23)
[2025-08-14] MEDS: IPRATROPIUM 0.5 MG/ALBUTEROL SULFATE 2.5 MG (BASE) AMPUL.NEB 3 ML INHALATION ×2 (02:14→07:44)
[2025-08-14 02:15] VITALS: PULSE 72; RESP 18
[2025-08-14 02:24] VITALS: PULSE 70; RESP 18
[2025-08-14 04:19] VITALS: BP 144/57; PULSE 74; RESP 18; TEMP 36.5; O2SAT 98
[2025-08-14 07:45] VITALS: PULSE 73; PULSE 96; RESP 19; O2SAT 96
[2025-08-14] MEDS: UMECLIDINIUM/VILANTEROL 62.5-25 MCG ELLIPTA 1 PUFF INHALATION (07:45)
[2025-08-14 07:52] VITALS: PULSE 90; RESP 19
--- NOTE | 2025-08-14 08:42 | P.DS_ITS ---
DS: Admitting Diagnosis Discharge Date 08/14/2025 Admitting Diagnosis Urinary tract infection DS: Discharge Diagnosis Discharge Diagnosis (1) Urinary tract infection due to Pseudomonas aeruginosa: Code(s): N39.0 - Urinary tract infection, site not specified; B96.5 - Pseudomonas (aeruginosa) (mallei) (pseudomallei) as the cause of diseases classified elsewhere Status: Acute Assessment and Plan: Recent urine culture as outpatient showing Pseudomonas resistant to all oral antibiotics Patient currently on IV cefepime ID on board (2) Urinary retention with incomplete bladder emptying: Code(s): R33.9 - Retention of urine, unspecified Status: Acute Assessment and Plan: BPH and history of urinary retention Currently on Flomax and Proscar Bladder training Currently on [place] (3) Bronchiectasis: Qualifiers: Bronchiectasis type: uncomplicated Qualified Code(s): J47.9 - Bronchiectasis, uncomplicated Code(s): J47.9 - Bronchiectasis, uncomplicated Status: Acute (4) Chronic respiratory failure with hypoxia, on home oxygen therapy: Code(s): J96.11 - Chronic respiratory failure with hypoxia; Z99.81 - Dependence on supplemental oxygen Status: Acute Assessment and Plan: COPD with chronic hypoxic respiratory failure Bronchiectasis Small area bronchopneumonia left lower lobe. doxycycline for atypical coverage. Continue on DuoNeb scheduled. Sputum culture with Pseudomonas aeruginosa. Will continue with cefepime History of Mycobacterium avium complex (5) Chronic kidney disease, stage IV (severe): Code(s): N18.4 - Chronic kidney disease, stage 4 (severe) Status: Chronic Assessment and Plan: Chest x-ray with congestive changes. Will resume Lasix Plan This is a 74-year-old male who presented with increased shortness of breath and urinary symptoms. He has been having urinary symptoms for couple of weeks as well as diarrhea for the last month. Reports subjective fever chills fatigue anxiety and abdominal pain. No chest pain. Has history of COPD with 4 L oxygen at baseline. History of DVT/PE on Eliquis. On ED evaluation his vitals were stable. Laboratory workup revealed WBC of 7.3 hemoglobin 10.4 platelet of 216. Chem panel showed sodium 140 potassium 4.5 chloride 100 bicarbonate 35 BUN 37 creatinine 2.5 blood glucose of 113. LFTs were normal. Urinalysis with more than 100 urine WBC. EKG showed with with nonspecific ST-T changes. Chest x-ray with no acute pulmonary findings. Severe emphysema of lungs with chronic pleural thickening of the left costophrenic angle. Severe atherosclerotic aorta noted. CT also demonstrates severe emphysematous changes of the lungs and findings suggestive of bronchopneumonia changes of the left lower lobe. Stable noncalcified nodules of the left lung. 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 Will continue the IV antibiotic for Pseudomonas. History of Mycobacterium avium complex DVT prophylaxis heparin subQ Code status full code DS: Summary Hospital Course Reason for hospitalization: Urinary tract infection Hospital Course: 74 years old male was admitted fever and chills. Patient was found to UTI. Urine Culture showed patient has Pseudomonas infection. Patient was given IV antibiotics. Patient was continued on no medication. Patient did not have any complication is stay in the hospital. Today patient is feeling better and was discharged home stable condition. Follow-up scheduled. Status at Discharge Cognitive/behavioral status at discharge: Stable Time Spent with Patient Time attestation: Total time spent providing and/or coordinating discharge services: 30 minutes Exam Narrative: GENERAL: The patient is well developed, not in acute distress HEENT: Nonicteric sclerae, PERRLA, EOMI. Oropharynx clear. Moist mucous membranes. Conjunctivae appear well perfused. CHEST: Chest wall is nontender. HEART: Regular rate and rhythm without murmur, rubs, or gallops LUNGS: Bilateral basal crackles, no respiratory distress ABDOMEN: Soft, positive bowel sounds, non-tender, no organomegaly. SKIN: No rash, no excessive bruising, petechiae, or purpura. NEUROLOGIC: Cranial nerves II-XII intact, alert and oriented x 3, no gross motor deficits EXTREMITIES: no edema, cyanosis or clubbing Const: Other: Thin body habitus, no acute distress, appears stated age HENMT: Other: Mucous membranes are moist, no oral pharyngeal erythema, head is normocephalic atraumatic, nasal cannula in place Eyes: Other: Pupils are equal and reactive, no scleral icterus Neck: Other: No JVD, no lymphadenopathy Resp: Other: Coarse crackles at the a left lower lung base, no increased work of breathing GI: Other: Regular rate, regular rhythm, 2+ bilateral radial and pedal pulses : Other: Suprapubic fullness and discomfort with palpation, postvoid residual greater than 400 Skin: Other: No jaundice, positive pallor Neuro: Other: Alert oriented x4, speech is clear, no facial asymmetry, no localizing neurologic deficits noted during the course of conversation patient is able to stand unassisted Extrem: Other: No cyanosis, no edema, 5/5 gas pump attendant strength bilaterally, patient is able to stand unassisted Psych: Other: Appropriate mood and affect, pleasant and cooperative, judgment and insight intact Discharge Plan Discharge Attending physician on discharge: Sanket Carlos Consulting providers: Elijah Kaur Discharging Clinician: Sanket Carlos Patient Disposition: Home Activity: as tolerated Diet: as tolerated and heart healthy Patient Instructions: Antibiotic Form Patient Language: Spanish Stand Alone Forms: General Discharge Information Follow-up/Referrals: Prasanth,German Tadeo MD [Non-Staff, Infectious Disease] Talon Landeros MD [Physician, Pulmonology] Ilir Stover DO [Primary Care Provider, Internal Medicine] Discharge Medications: Continued acetaminophen 500 mg Tablet 1,000 mg PO Q6H PRN (Reason: Mild Pain (Scale Score 1-4)) Patient Comments: usually once a day Dupixent Syringe 300 mg/2 mL syringe 300 mg subcut .COMPLEX Qty: 4 10RF Rx Instructions: 300 mg subcut 1 every 14 days; for rash on the 1st and 15th of every month Stiolto Respimat 2.5-2.5 mcg/actuation mist See Rx Instructions .ROUTE .COMPLEX Qty: 12 3RF Dose Instruction: USE 2 INHALATIONS BY MOUTH DAILY Rx Instructions: USE 2 INHALATIONS BY MOUTH DAILY potassium chloride 10 mEq capsule, extended release 10 meq PO DAILY Qty: 100 2RF albuterol sulfate 2.5 mg /3 mL (0.083 %) solution for nebulization 2.5 mg inhalation Q4-6H PRN (Reason: SOB) Qty: 1260 1RF losartan 50 mg tablet 50 mg PO DAILY Qty: 90 3RF roflumilast 500 mcg tablet 500 mcg PO DAILY 30 Days Qty: 30 11RF atorvastatin [Lipitor] 80 mg tablet 80 mg PO DAILY Qty: 30 0RF furosemide 40 mg tablet 40 mg PO QAM Qty: 30 0RF amlodipine 5 mg tablet 10 mg PO DAILY Qty: 30 0RF polyethylene glycol 3350 17 gram powder in packet 17 g PO DAILY PRN (Reason: constipation) Qty: 30 0RF cilostazol 50 mg tablet 50 mg PO BID Qty: 60 0RF gabapentin 300 mg capsule 300 mg PO DAILY PRN (Reason: neuropathy) Qty: 30 0RF tramadol 50 mg tablet 50 mg PO Q6H PRN (Reason: pain) Qty: 60 0RF triamcinolone acetonide 0.1 % cream 1 applic topical BID PRN (Reason: itching) Qty: 1 0RF guaifenesin [Mucinex] 600 mg tablet extended release 12hr 600 mg PO BID Qty: 60 0RF tamsulosin 0.4 mg capsule 0.8 mg PO HS Qty: 30 0RF albuterol sulfate 90 mcg/actuation HFA aerosol inhaler 2 puff INHALATION Q6H PRN (Reason: shortness of breath or wheezing) Qty: 1 0RF Centrum 18-400 mg-mcg tablet 1 tablet PO DAILY Qty: 30 0RF Zyrtec 10 mg capsule 10 mg PO HS PRN (Reason: allergy symptoms) Qty: 30 0RF carvedilol [Coreg] 25 mg tablet 25 mg PO Q12H Qty: 60 0RF Rx Instructions: must administer with a meal/food finasteride 5 mg tablet 5 mg PO DAILY Qty: 30 0RF Date of admission: 08/01/25 19:53 Primary Care Provider: Ilir Stover Admitting Provider: Judith Gan Attending physician on admission: Judith Gan Condition: Guarded Prognosis Quality VTE Prophylaxis VTE prophylaxis: pharmacologic ordered (Heparin 5000 units subQ q.12 hours)
== END 2025-08-14 11:51 | disposition home or self-care (01) | DRG 689 ==
LOC: ANHED 18:34 → ANH3MEDSUR 21:03 → ANH2MED 22:03
PROVIDERS: Emergency Medicine; General Practice; Internal Medicine; Admitting Provider Internal Medicine; PCP Internal Medicine; Visit Provider Internal Medicine
DX: N39.0 Urinary tract infection, site not specified (principal); J18.0 Bronchopneumonia, unspecified organism; I13.0 Hypertensive heart and chronic kidney disease with heart failure and stage 1 through stage 4 chronic kidney disease, or unspecified chronic kidney disease; N18.4 Chronic kidney disease, stage 4 (severe); J96.11 Chronic respiratory failure with hypoxia; N25.81 Secondary hyperparathyroidism of renal origin; Z16.24 Resistance to multiple antibiotics; E44.0 Moderate protein-calorie malnutrition; J44.0 Chronic obstructive pulmonary disease with (acute) lower respiratory infection; B96.5 Pseudomonas (aeruginosa) (mallei) (pseudomallei) as the cause of diseases classified elsewhere; N18.9 Chronic kidney disease, unspecified; I50.9 Heart failure, unspecified; G47.33 Obstructive sleep apnea (adult) (pediatric); N40.1 Benign prostatic hyperplasia with lower urinary tract symptoms; R33.8 Other retention of urine; I25.10 Atherosclerotic heart disease of native coronary artery without angina pectoris; I73.9 Peripheral vascular disease, unspecified; I71.40 Abdominal aortic aneurysm, without rupture, unspecified; K21.9 Gastro-esophageal reflux disease without esophagitis; J47.9 Bronchiectasis, uncomplicated; Z96.643 Presence of artificial hip joint, bilateral; Z99.81 Dependence on supplemental oxygen; Z95.820 Peripheral vascular angioplasty status with implants and grafts; Z95.0 Presence of cardiac pacemaker; Z87.891 Personal history of nicotine dependence; Z68.21 Body mass index [BMI] 21.0-21.9, adult; Z86.718 Personal history of other venous thrombosis and embolism; Z86.711 Personal history of pulmonary embolism; Z79.01 Long term (current) use of anticoagulants
CPT/HCPCS: 0202U; 36415; 71045; 71046; 71260; 74177; 76857; 80048; 80053; 81001; 82570; 83605; 83735; 84300; 84540; 85025; 85027; 85055; 87040; 87070; 87086; 87186; 87205; 87449; 87493; 87641; 87899; 93005; 94640; 99285; A9270; J0692; J1644; J7030; Q9967